=== PATIENT | female | born 1945 | race Caucasian/White ===

== ENCOUNTER 2023-01-24 10:54 | Outpatient (OUT) | payer MEDICARE, SELFPAY ==
--- NOTE | 2023-01-24 13:04 | P.HP_ITS ---
Consult Note: HPI Data of Consult Patient: new to practice Consult date: 01/24/23 Requesting Physician: Naomy Lujan MD Primary Care Provider: BHAVANI PATEL Consult Narrative Reason for consult: Neck pain, bilateral shoulder and arm pain, hand tingling bilaterally Narrative: this is a pleasant 77-year-old female who presents for evaluation. She notes increasing pain throughout her neck that radiates into the bilateral shoulders and upper extremities. She notes tingling that radiates into the bilateral curran nds. Her CT scan of the cervical spine was reviewed, which is significant for multiple levels of moderate to severe foraminal stenosis. She has tried various medications, with limited relief. She uses topical Biofreeze, which provides mild relief. she engages in provider directed home exercises, which provided minimal relief. She otherwise denies adverse medication side effects or loss of bowel or bladder control. cc:: CC: Naomy Lujan MD Review of Systems ROS Status of ROS 10 or more systems reviewed and unremarkable except as noted in history and below [facility] Medical History (Updated 01/24/23 @ 13:08 by Naomy Lujan MD) Surgical History Meds Home Medications and Allergies Home Medications Medication Instructions Recorded Confirmed Type camphor-menthol 0.2 %-3.5 % 1 applic topical BID 01/24/23 01/24/23 History topical gel esomeprazole magnesium 20 mg 20 mg PO DAILY 01/24/23 01/24/23 History capsule,delayed release nabumetone 500 mg tablet 500 mg PO BID 01/24/23 01/24/23 History tizanidine 2 mg tablet 2 mg PO .hs PRN muscle spasticity 01/24/23 01/24/23 History Allergies Allergy/AdvReac Type Severity Reaction Status Date / Time Penicillins Allergy Mild Flushing Verified 01/24/23 12:54 Exam Constitutional: Common normals: no apparent distress, oriented x3 and healthy appearing Neck & C-Spine: Other: tenderness to palpation throughout the cervical spine and paraspinal musculature. Pain is elicited with flexion, extension, and lateral rotation of the cervical spine. Facet loading maneuvers are positive bilaterally. Strength noted to be unremarkable throughout the bilateral upper extremities except for decreased strength rated at four out of five in the bilateral biceps, triceps. Sensation noted to be unremarkable throughout the bilateral upper extremities except for dysesthesia in the bilateral C4, C5, C6, C7 dermatomal distributions. Respiratory: Common normals: normal respiratory effort Effort & inspection: able to speak in complete sentences Extremity: Common normals: normal to inspection Neuro: Common normals: oriented x3, CN's II-XII intact bilaterally and no focal motor deficits Psych: Common normals: mental status grossly normal and cooperative Skin: Common normals: no rashes or lesions noted General skin exam: no rashes or lesions noted Assessment and Plan Assessment and Plan (1) Cervical stenosis of spinal canal: (2) Cervical spondylosis: Plan this is a pleasant 77-year-old female who presents for evaluation. She has failed physical and medical modalities, as listed above. Imaging was reviewed, as noted above. Given her symptomatology and imaging findings, she may benefit from bilateral C6 transforaminal epidural steroid injections. Depending on her response, she may even benefit from bilateral C7 transforaminal epidural steroid injections. She is in agreement with this plan. Medications were reviewed, and no changes were made at this time. She will follow-up after the procedure is completed.
== END 2023-01-24 10:55 ==
PROVIDERS: PCP Family Medicine; Visit Provider Anesthesiology
DX: M48.02 Spinal stenosis, cervical region (principal); M47.812 Spondylosis without myelopathy or radiculopathy, cervical region
CPT/HCPCS: G0463

== ENCOUNTER 2023-02-03 08:14 | Day surgery (SDC) | payer MEDICARE, SELFPAY ==
[2023-02-03 08:40] VITALS: BP 165/78; PULSE 101; RESP 20; TEMP 36.6; O2SAT 99
[2023-02-03] MEDS: IOHEXOL 240 MG/ML - 10 ML VIAL INJ (09:07)
[2023-02-03] MEDS: DEXAMETHASONE SODIUM PHOSPHATE 10 MG/ML VIAL INJ (09:07)
[2023-02-03] MEDS: BUPIVACAINE HCL 0.25% PF 25 MG/10 ML VIAL INJ (09:07)
[2023-02-03] MEDS: LIDOCAINE HCL 2% PF 100 MG/5 ML VIAL INJ (09:08)
[2023-02-03 09:10] VITALS: BP 120/58; BP 130/57; PULSE 101; PULSE 102; RESP 18; O2SAT 97
--- NOTE | 2023-02-03 09:13 | P.ON_ITS ---
Date of procedure: 02/03/23 Pre-op diagnosis: M54.12 Post-op diagnosis: same Procedure: Bilateral C5-6 transforaminal epidural steroid injection Medications: Bupivacaine 0.25% 2cc, dexamethasone 10mg PROCEDURE DESCRIPTION: After informed consent was obtained, the patient was bro ught to the operating room and was placed in the prone position. Standard monitoring was applied. The skin overlying the area was prepped and draped in standard sterile fashion. A 25-gauge spinal needle was inserted through the skin and directed ?toward the indicated nerve root foramen under fluoroscopic guidance. Omnipaque dye 0.3 mL was ?injected and appropriate epidural distribution was established without intravascular or intrathecal ?spread. Subsequently, 1 mL of the corticosteroid and local anesthetic solution was ?injected. The needle was removed. The patient was then turned supine onto the gurney and ?transferred to the recovery area in stable condition, to be discharged home after meeting ?criteria and follow up as per treatment plan. Surgeon: Naomy Lujan
== END 2023-02-03 09:15 | disposition home or self-care (01) ==
PROVIDERS: PCP Family Medicine; Visit Provider Anesthesiology
DX: M54.12 Radiculopathy, cervical region (principal)
CPT/HCPCS: 64479; J1100; Q9966

== ENCOUNTER 2023-02-17 07:55 | Day surgery (SDC) | payer MEDICARE, SELFPAY ==
[2023-02-17 08:38] VITALS: BP 136/73; PULSE 94; RESP 16; TEMP 36; O2SAT 96
[2023-02-17 09:30] VITALS: BP 148/68; PULSE 97; RESP 18; O2SAT 96
[2023-02-17] MEDS: BUPIVACAINE HCL 0.25% PF 25 MG/10 ML VIAL INJ (09:32)
[2023-02-17] MEDS: IOHEXOL 240 MG/ML - 10 ML VIAL INJ (09:33)
[2023-02-17] MEDS: DEXAMETHASONE SODIUM PHOSPHATE 10 MG/ML VIAL INJ (09:33)
[2023-02-17] MEDS: LIDOCAINE HCL 2% PF 100 MG/5 ML VIAL INJ (09:33)
--- NOTE | 2023-02-17 09:34 | W.PM.PROCNOT ---
Date of procedure: 02/17/23 Pre-op diagnosis: M54.12 Post-op diagnosis: same Procedure: Procedure: Bilateral C6-7 transforaminal epidural steroid injection Medications: Bupivacaine 0.25% 2cc, dexamethasone 10mg The patient was seen and examined in the preoperative holding area.? Informed consent was obtained and placed on the chart.? Patient was brought to the medical procedure unit and placed in the prone position where a timeout was completed verifying the correct patient, procedure site, position, and planned special equipment using sterile aseptic technique.? Under direct fluoroscopic visualization a 25-gauge Quincke tipped spinal needle was advanced at level left C6-7 to the designated neural foramen where contrast dye was injected to show adequate spread.? There was no evidence of vascular or adverse uptake.? Epidural spread was appreciated.? The above-mentioned injectate was then placed in a 1.5 mL aliquot preceded by negative aspiration.? The needle was removed. The same procedure, at the same level, was completed on the opposite side. ? Patient was taken to the postprocedural recovery area and monitored for an appropriate length of time before found suitable for discharge in the accompaniment of a responsible adult. Anesthesia: None Surgeon: Naomy Lujan Condition: stable
[2023-02-17 12:11] VITALS: BP 163/76; PULSE 101; RESP 18; O2SAT 95
== END 2023-02-17 09:39 | disposition home or self-care (01) ==
LOC: SURGOUT 07:56
PROVIDERS: PCP Family Medicine; Visit Provider Anesthesiology
DX: M54.12 Radiculopathy, cervical region (principal)
CPT/HCPCS: 64479; J1100; Q9966

== ENCOUNTER 2023-03-03 08:45 | Outpatient (OUT) | payer MEDICARE, SELFPAY ==
--- NOTE | 2023-03-03 09:24 | P.CN_ITS ---
Consult Note: HPI Data of Consult Patient: known to practice within the last 3 years Consult date: 03/03/23 Requesting Physician: Naomy Lujan MD Primary Care Provider: BHAVANI PATEL Consult Narrative Reason for consult: Neck pain, bilateral shoulder pain Narrative: this is a pleasant 77-year-old female who presents for assessment. I'm glad that she had moderate to significant relief after her recent cervical epidural steroid injections. Her primary complaint now is persistent axial neck pain that occasionally refers into the bilateral shoulders. Her CT of the cervical spine was reviewed, which significant for multilevel degenerative disc disease and facet arthropathy. She continues to engage in provider directed home exercises, which she has completed for over three months. She continues to utilize nabumetone, which is done for over three months. She recently took a tizanidine, but she did not like how this made her feel. She otherwise denies of his medication side effects loss of lumbar bladder control. ZULLY: 16 cc:: CC: Naomy Lujan MD Review of Systems ROS Status of ROS 10 or more systems reviewed and unremarkable except as noted in history and below PFSH [facility] Medical History Surgical History Meds Home Medications and Allergies Home Medications Medication Instructions Recorded Confirmed Type esomeprazole magnesium 20 mg 20 mg PO DAILY 01/24/23 02/17/23 History capsule,delayed release nabumetone 500 mg tablet 500 mg PO BID 01/24/23 02/17/23 History tizanidine 2 mg tablet 2 mg PO .hs PRN muscle spasticity 01/24/23 02/17/23 History Allergies Allergy/AdvReac Type Severity Reaction Status Date / Time Penicillins Allergy Mild Flushing Verified 02/17/23 08:43 Exam Constitutional Common normals: no apparent distress, oriented x3 and healthy appearing Neck & C-Spine Other: tenderness to palpation throughout the cervical spine and paraspinal musculature. Pain is elicited with flexion, extension, and lateral rotation of the cervical spine. Facet loading maneuvers are positive bilaterally. Coordinati on remains intact. Gait remains nonantalgic. Respiratory Common normals: normal respiratory effort Effort & inspection: able to speak in complete sentences Extremity Common normals: normal to inspection Neuro Common normals: oriented x3, CN's II-XII intact bilaterally and no focal motor deficits Psych Common normals: mental status grossly normal and cooperative Assessment and Plan Assessment and Plan (1) Cervical spondylosis: (2) Cervical stenosis of spinal canal: Plan this is a pleasant 77-year-old female who presents for assessment. I am glad that she had moderate to significant relief after her recent cervical epidural steroid injection. I suspect that much of her residual axial pain is a consequence of cervical spondylosis. Her imaging was reviewed, as noted above. Given her failure to respond to conservative measures for greater than three months, it is prudent to attempt diagnostic bilateral C5, C6, C7 medial branch blocks ?2 fluoroscopically guided with the intention of proceeding to radio frequency ablation. She is in agreement with this plan. Medications were reviewed, and no changes were made at this time. She will follow-up after the procedure is completed.
== END 2023-03-03 08:46 | disposition home or self-care (01) ==
LOC: PM 08:46
PROVIDERS: PCP Family Medicine; Visit Provider Anesthesiology
DX: M48.02 Spinal stenosis, cervical region (principal); M47.812 Spondylosis without myelopathy or radiculopathy, cervical region
CPT/HCPCS: G0463

== ENCOUNTER 2023-03-10 08:09 | Day surgery (SDC) | payer MEDICARE, SELFPAY ==
[2023-03-10 08:54] VITALS: BP 156/86; PULSE 93; RESP 14; TEMP 36.2; O2SAT 97
[2023-03-10] MEDS: DEXAMETHASONE SODIUM PHOSPHATE 10 MG/ML VIAL INJ (09:36)
[2023-03-10] MEDS: BUPIVACAINE HCL 0.25% PF 25 MG/10 ML VIAL INJ (09:36)
[2023-03-10] MEDS: LIDOCAINE HCL 2% PF 100 MG/5 ML VIAL INJ (09:37)
[2023-03-10 09:38] VITALS: BP 155/72; PULSE 92; RESP 18; O2SAT 97
--- NOTE | 2023-03-10 09:39 | W.PM.PROCNOT ---
Date of procedure: 03/10/23 Pre-op diagnosis: Cervical spondylosis Post-op diagnosis: same Procedure: Procedure: Bilateral C5-6, C6-7 medial branch block Medications: Bupivacaine 0.25% 5cc The patient was seen and examined in the preoperative holding area.? The informed consent was obtained and placed on the chart.? The patient was brought to the medical procedure unit and placed in the prone position.? A timeout was completed verifying correct patient, procedure site, positioning, plan, and special equipment.? Using aseptic technique, the needle was placed at left C5.? Under direct fluoroscopic visualization, a Quincke tip needle was advanced to the midpoint of the waist of the articular pillar at the respective medial branch segment. The above-mentioned injectate was placed in a 1 mL aliquot proceeded by negative aspiration.? The needle was removed.? The procedure was completed at all left C6, 7. The same procedure, at the same levels, was then completed on the right side. Insertion site was covered.? Patient was taken to the postprocedural recovery area and monitored for an appropriate length of time before found suitable for discharge in the accompaniment of a responsible adult. Anesthesia: None Surgeon: Naomy Lujan Pathology: none sent
--- NOTE | 2023-03-10 09:50 | W.PM.PROCNOT ---
Date of procedure: 03/10/23 Pre-op diagnosis: Cervical spondylosis Post-op diagnosis: same Procedure: Procedure: Bilateral C2-3, C3-4 medial branch block Medications: Bupivacaine 0.25% 4cc The patient was seen and examined in the preoperative holding area.? The informed consent was obtained and placed on the chart.? The patient was brought to the medical procedure unit and placed in the prone position.? A timeout was completed verifying correct patient, procedure site, positioning, plan, and special equipment.? Using aseptic technique, the needle was placed at left C2.? Under direct fluoroscopic visualization, a Quincke tip needle was advanced to the midpoint of the waist of the articular pillar at the respective medial branch segment. The above-mentioned injectate was placed in a 1 mL aliquot proceeded by negative aspiration.? The needle was removed.? The procedure was completed at all left C3, 4. The same procedure, at the same levels, was then completed on the right side. Insertion site was covered.? Patient was taken to the postprocedural recovery area and monitored for an appropriate length of time before found suitable for discharge in the accompaniment of a responsible adult. Anesthesia: None Surgeon: Naomy Lujan Pathology: none sent Condition: stable
[2023-03-10 14:45] VITALS: BP 154/75; PULSE 97; RESP 18; O2SAT 98
== END 2023-03-10 09:43 | disposition home or self-care (01) ==
PROVIDERS: PCP Family Medicine; Visit Provider Anesthesiology
DX: M47.812 Spondylosis without myelopathy or radiculopathy, cervical region (principal)
CPT/HCPCS: 64490; 64491; J1100

== ENCOUNTER 2023-03-20 10:55 | Outpatient (OUT) | payer MEDICARE, SELFPAY ==
--- NOTE | 2023-03-20 11:01 | PM.CN ---
Consult Note: HPI Data of Consult Patient: known to practice within the last 3 years Requesting Physician: LOVE PORTILLO NP Primary Care Provider: BHAVANI PATEL Consult Narrative Narrative: Patient is here for f/u of bilat dx MBB to C5, 6, 7 done on 03/04/23. She had 100% relief of pain with increased fx for several hours after procedure. She would like tp proceed with second MBB of same area and ultimately RFA. Pain is in bilat cervical area, worse with movement. . No new sensorimotor sx or bowel or bladder issues. No adverse medication SE. Medications assist patient with better ability to perform ADLs. cc:: CC: LOVE PORTILLO NP Review of Systems ROS Status of ROS 10 or more systems reviewed and unremarkable except as noted in history and below Musculoskeletal Reports: neck pain PFSH PFSH Medical History Surgical History Meds Home Medications and Allergies Home Medications Medication Instructions Recorded Confirmed Type esomeprazole magnesium 20 mg 20 mg PO DAILY 01/24/23 03/10/23 History capsule,delayed release nabumetone 500 mg tablet 500 mg PO BID 01/24/23 03/10/23 History Allergies Allergy/AdvReac Type Severity Reaction Status Date / Time Penicillins Allergy Mild Flushing Verified 02/17/23 08:43 Exam Constitutional Documenting provider has reviewed patient's vital signs: yes Common normals: no apparent distress, average body habitus, oriented x3, no limitations, healthy appearing, alert and well nourished General appearance: cooperative, comfortable and well developed Orientation/consciousness: Yes awake, Yes oriented to person, Yes oriented to place and Yes oriented to time HENMA Common normals: normocephalic and moist oral mucous membranes Neck & C-Spine Common normals: full ROM General: normal visual inspection and trachea midline Cervical spine: pain with cervical ROM and paracervical muscle tenderness Respiratory Common normals: normal respiratory effort, no retractions and no use of accessory muscles Effort & inspection: able to speak in complete sentences, symmetric chest movement and abnormal respiratory pattern Extremity Common normals: normal to inspection, full ROM and normal capillary refill Other: pain with cervical ROM muscle strength 5/5 bilat with intact sensation bilat UE Assessment and Plan Assessment and Plan (1) Cervical spondylosis: (2) Cervical stenosis of spinal canal: Plan schedule second dx MBB bilat C5, 6, 7 under fluoroscopy with ultimate progression to thermal RFA
== END 2023-03-20 10:56 | disposition home or self-care (01) ==
LOC: PM 10:55
PROVIDERS: PCP Family Medicine; Visit Provider Nurse Practitioner
DX: M47.812 Spondylosis without myelopathy or radiculopathy, cervical region (principal); M48.02 Spinal stenosis, cervical region
CPT/HCPCS: G0463

== ENCOUNTER 2023-03-24 09:48 | Day surgery (SDC) | payer MEDICARE, SELFPAY ==
[2023-03-24 10:40] VITALS: BP 156/92; PULSE 97; RESP 12; TEMP 36.7; O2SAT 97
[2023-03-24 11:14] VITALS: BP 155/67; PULSE 98; RESP 18; O2SAT 96
[2023-03-24] MEDS: DEXAMETHASONE SODIUM PHOSPHATE 10 MG/ML VIAL INJ (11:16)
[2023-03-24] MEDS: BUPIVACAINE HCL 0.25% PF 25 MG/10 ML VIAL INJ (11:16)
[2023-03-24] MEDS: LIDOCAINE HCL 2% PF 100 MG/5 ML VIAL INJ (11:17)
--- NOTE | 2023-03-24 11:22 | W.PM.PROCNOT ---
Date of procedure: 03/24/23 Pre-op diagnosis: Cervical spondylosis Post-op diagnosis: same Procedure: Procedure: Bilateral C5-6, C6-7 medial branch block Medications: Bupivacaine 0.25% 4cc The patient was seen and examined in the preoperative holding area.? The informed consent was obtained and placed on the chart.? The patient was brought to the medical procedure unit and placed in the prone position.? A timeout was completed verifying correct patient, procedure site, positioning, plan, and special equipment.? Using aseptic technique, the needle was placed at left C5.? Under direct fluoroscopic visualization, a Quincke tip needle was advanced to the midpoint of the waist of the articular pillar at the respective medial branch segment. The above-mentioned injectate was placed in a 1 mL aliquot proceeded by negative aspiration.? The needle was removed.? The procedure was completed at all left C6, 7. The same procedure, at the same levels, was then completed on the right side. Insertion site was covered.? Patient was taken to the postprocedural recovery area and monitored for an appropriate length of time before found suitable for discharge in the accompaniment of a responsible adult. Anesthesia: None Surgeon: Naomy Lujan Pathology: none sent Condition: stable Disposition: no change
[2023-03-24 14:26] VITALS: BP 151/70; PULSE 103; RESP 18; O2SAT 94
== END 2023-03-24 11:24 | disposition home or self-care (01) ==
LOC: SURGOUT 09:48
PROVIDERS: PCP Family Medicine; Visit Provider Anesthesiology
DX: M47.812 Spondylosis without myelopathy or radiculopathy, cervical region (principal)
CPT/HCPCS: 64490; 64491; J1100

== ENCOUNTER 2023-04-04 08:10 | Outpatient (OUT) | payer MEDICARE, SELFPAY ==
--- NOTE | 2023-04-04 08:25 | PM.CN ---
Consult Note: HPI Data of Consult Patient: known to practice within the last 3 years Consult date: 04/04/23 Requesting Physician: LOVE PORTILLO NP Primary Care Provider: BHAVANI Kuhn Narrative Narrative: Patient is here for f/u of chronic neck pain. F./U to second cervical MBB C5, 6,7. She had 100% relief for several hours after procedure with increased neck ROM. She would like to proceed with RFA of same region. Procedure discussed in detail. Pain today is worse on left side. Axial pain with no radiculopathy. . No new sensorimotor sx or bowel or bladder issues. Medication regimen assists patient to better complete ADLs. Denies adverse medication SE. OARRS reviewed. cc:: CC: LOVE PORTILLO NP Review of Systems ROS Status of ROS 10 or more systems reviewed and unremarkable except as noted in history and below Musculoskeletal Reports: neck pain PFSH PFSH Medical History Surgical History Meds Home Medications and Allergies Home Medications Medication Instructions Recorded Confirmed Type nabumetone 500 mg tablet 500 mg PO BID 01/24/23 03/24/23 History Allergies Allergy/AdvReac Type Severity Reaction Status Date / Time Penicillins Allergy Mild Flushing Verified 03/24/23 10:33 Exam Constitutional Documenting provider has reviewed patient's vital signs: yes Common normals: no apparent distress, average body habitus, oriented x3, healthy appearing, alert and well nourished General appearance: cooperative, comfortable and well developed Orientation/consciousness: Yes awake, Yes oriented to person, Yes oriented to place and Yes oriented to time HENMT Common normals: normocephalic and moist oral mucous membranes Neck & C-Spine Common normals: supple General: normal visual inspection and trachea midline Cervical spine: pain with cervical ROM, cervical spine tenderness, paracervical muscle tenderness and paracervical muscle spasm Other: Arm strength 5/5 right, 4/5 left with intact sensation no arm drift pain with side to side head motion Respiratory Common normals: normal respiratory effort, no retractions and no use of accessory muscles Effort & inspection: able to speak in complete sentences and symmetric chest movement Extremity Common normals: normal to inspection, full ROM and normal capillary refill Assessment and Plan Assessment and Plan (1) Cervical spondylosis: (2) Cervical stenosis of spinal canal: Plan schedule cervical thermal RFA C 5, 6, 7 left side, followed by right side same levels under fluoroscopy
== END 2023-04-04 08:11 | disposition home or self-care (01) ==
LOC: PM 08:11
PROVIDERS: PCP Family Medicine; Visit Provider Nurse Practitioner
DX: M47.812 Spondylosis without myelopathy or radiculopathy, cervical region (principal); M48.02 Spinal stenosis, cervical region
CPT/HCPCS: G0463

== ENCOUNTER 2023-04-21 07:21 | Day surgery (SDC) | payer MEDICARE, SELFPAY ==
[2023-04-21 07:50] VITALS: BP 133/74; PULSE 94; RESP 16; TEMP 36.3; O2SAT 96
[2023-04-21] MEDS: 0.9 % SODIUM CHLORIDE 500 ML 50 ML IV (07:56)
[2023-04-21] MEDS: LIDOCAINE HCL 2% 400 MG/20 ML MDV 10 ML INJ (08:55)
[2023-04-21] MEDS: TRIAMCINOLONE ACETONIDE 40 MG/ML VIAL INJ (08:55)
[2023-04-21] MEDS: BUPIVACAINE HCL 0.25% PF 25 MG/10 ML VIAL 2 ML INJ (08:55)
--- NOTE | 2023-04-21 09:01 | P.ON_ITS ---
Date of procedure: 04/21/23 Pre-op diagnosis: Cervical spondylosis Post-op diagnosis: same as pre-op Procedure: Procedure: Left C5-6, C6-7 radiofrequency ablation Medications: Bupivacaine 0.25% 3cc, lidocaine 1% 3cc, dexamethasone 10mg The patient was seen and examined in the preoperative holding area.? The site was marked.? Written informed consent was obtained and placed on the chart.? The patient was brought to the medical procedure unit and placed in the prone position.? A timeout was completed verifying correct patient, procedure, positioning, and special requirements.? The skin overlying the target points, the designated medial branch, were prepped and draped in the usual sterile fashion.? The target point was achieved with a 20-gauge 15 cm with a 10 mm curved active tip radiofrequency cannula under direct fluoroscopic visualization.? The needle was inserted at level C5 on the left side. Needle tip position was confirmed with lateral fluoroscopic position.? Motor stimulation was carried out at 2 Hz up to 5 volts with the absence of extremity activity.? This was repeated at level C6, 7 on left side.?? Sensory stimulation was carried out.? Concordant pain was realized at the above- mentioned sites.? Then radiofrequency lesioning was carried out times 90 seconds at 80 degrees times 2 lesions at each level.? The radiofrequency probe was removed prior to cannula removal.? The above-mentioned injectate was placed in 1 mL increments.? The needle was removed.? Insertion sites were covered.? The patient was taken to the postoperative recovery area and monitored for an appropriate length of time before being found suitable for discharge in the company of a responsible adult. Anesthesia: Moderate Sedation Surgeon: Naomy Lujan Pathology: none sent Condition: stable Disposition: no change
[2023-04-21 09:03] VITALS: BP 113/75; PULSE 89; RESP 14; TEMP 36.3; O2SAT 97
[2023-04-21 09:09] VITALS: BP 121/70; PULSE 92; RESP 16; TEMP 36.3; O2SAT 97
== END 2023-04-21 09:27 | disposition home or self-care (01) ==
PROVIDERS: PCP Family Medicine; Visit Provider Anesthesiology
DX: M47.812 Spondylosis without myelopathy or radiculopathy, cervical region (principal)
CPT/HCPCS: 64633; 64634; J2704

== ENCOUNTER 2023-05-05 07:38 | Day surgery (SDC) | payer MEDICARE, SELFPAY ==
[2023-05-05] MEDS: 0.9 % SODIUM CHLORIDE 500 ML IV (07:15)
[2023-05-05 08:04] VITALS: BP 128/71; PULSE 88; RESP 16; TEMP 36.2; O2SAT 96
[2023-05-05] MEDS: LIDOCAINE HCL 2% 400 MG/20 ML MDV 15 ML INJ (08:39)
[2023-05-05] MEDS: DEXAMETHASONE SODIUM PHOSPHATE 10 MG/ML VIAL INJ (08:39)
[2023-05-05] MEDS: BUPIVACAINE HCL 0.25% PF 25 MG/10 ML VIAL INJ (08:39)
--- NOTE | 2023-05-05 08:49 | P.ON_ITS ---
Date of procedure: 05/05/23 Pre-op diagnosis: Cervical spondylosis Post-op diagnosis: same as pre-op Procedure: Procedure: Right C5-6, C6-7 radiofrequency ablation Medication: Bupivacaine 0.25% 3cc, dexamethasone 10mg, lidocaine 1% 3cc The patient was seen and examined in the preoperative holding area.? The site was marked.? Written informed consent was obtained and placed on the chart.? The patient was brought to the medical procedure unit and placed in the prone position.? A timeout was completed verifying correct patient, procedure, positioning, and special requirements.? The skin overlying the target points, the designated medial branch, were prepped and draped in the usual sterile fashion.? The target point was achieved with a 20-gauge 15 cm with a 10 mm curved active tip radiofrequency cannula under direct fluoroscopic visualization.? The needle was inserted at level C5 on the right side. Needle tip position was confirmed with lateral fluoroscopic position.? Motor stimulation was carried out at 2 Hz up to 5 volts with the absence of extremity activity.? This was repeated at level C6, 7 on right side.?? Sensory stimulation was carried out.? Concordant pain was realized at the above- mentioned sites.? Then radiofrequency lesioning was carried out times 90 seconds at 80 degrees times 2 lesions at each level.? The radiofrequency probe was removed prior to cannula removal.? The above-mentioned injectate was placed in 1 mL increments.? The needle was removed.? Insertion sites were covered.? The patient was taken to the postoperative recovery area and monitored for an appropriate length of time before being found suitable for discharge in the company of a responsible adult. Anesthesia: Moderate Sedation Surgeon: Naomy Lujan Pathology: none sent Condition: stable Disposition: no change
[2023-05-05 08:51] VITALS: BP 112/67; PULSE 82; RESP 16; TEMP 36.9; O2SAT 96
[2023-05-05 08:52] VITALS: BP 117/66; PULSE 85; RESP 16; TEMP 36.9; O2SAT 95
== END 2023-05-05 09:13 | disposition home or self-care (01) ==
PROVIDERS: PCP Family Medicine; Visit Provider Anesthesiology
DX: M47.812 Spondylosis without myelopathy or radiculopathy, cervical region (principal)
CPT/HCPCS: 64633; 64634; J1100; J2704

== ENCOUNTER 2023-06-04 08:56 | Outpatient (OUT) | payer MEDICARE, SELFPAY ==
--- NOTE | 2023-06-04 09:15 | P.CN_ITS ---
Consult Note: HPI Data of Consult Patient: known to practice within the last 3 years Requesting Physician: Debby Collazo NP Primary Care Provider: BHAVANI PATEL Consult Narrative Reason for consult: f/u Narrative: Minda mcdonald pleasant 78 year old female presents for evaluation of chronic neck pain and left shoulder pain. Recently had right and left C5, 6, 7 RFA with 90% pain relief and functional improvement ongoing. Patient has not needed nabumetone since procedures. Here for a procedure follow up. Today rating pain 2/10 in left shoulder, worse with activity and lifting improved with rest and heat. cc:: CC: Debby Collazo NP Review of Systems ROS Status of ROS 10 or more systems reviewed and unremarkable except as noted in history and below Musculoskeletal Reports: other (left shoulder) PFSH PFSH Medical History Acid reflux ?K21.9 - Gastro-esophageal reflux disease without esophagitis (ICD-10) Kidney calculi ?N20.0 - Calculus of kidney (ICD-10) Neck pain ?M54.2 - Cervicalgia (ICD-10) Surgical History History of bilateral tubal ligation ?Z98.51 - Tubal ligation status (ICD-10) History of phacoemulsification of cataract of both eyes with intraocular lens implantation ?Z98.41 - Cataract extraction status, right eye (ICD-10) ?Z98.42 - Cataract extraction status, left eye (ICD-10) ?Z96.1 - Presence of intraocular lens (ICD-10) Hx of appendectomy ?Z90.49 - Acquired absence of other specified parts of digestive tract (ICD- 10) Meds Home Medications and Allergies Home Medications Medication Instructions Recorded Confirmed Type nabumetone 500 mg tablet 500 mg PO BID 01/24/23 05/05/23 History Allergies Allergy/AdvReac Type Severity Reaction Status Date / Time Penicillins Allergy Mild Flushing Verified 05/05/23 08:00 Exam Constitutional Documenting provider has reviewed patient's vital signs: yes Common normals: no apparent distress, oriented x3, healthy appearing, alert and well nourished General appearance: cooperative HENMT Common normals: normocephalic, hearing grossly normal bilaterally and moist oral mucous membranes Head and scalp: normocephalic Eye Common normals: PERRL Pupil: PERRL Neck & C-Spine Common normals: full ROM General: normal visual inspection Other: neck pain resolved Chest Common normals: inspection of chest normal Respiratory Common normals: normal respiratory effort, no retractions and no use of accessory muscles Extremity Other: left shoulder pain, pain following suprascapular nerve LUE 5/5 mildly limited ROM Neuro Common normals: oriented x3, CN's II-XII intact bilaterally, moves all extremities, no focal motor deficits, no sensory deficits noted, deep tendon reflexes 2+ bilaterally and gait normal Sensorium/orientation: alert Motor exam: strength 5/5 throughout and no movement abnormalities noted Other: radiculopathy to bilateral hands Psych Common normals: mental status grossly normal, thought process normal, cooperative, affect normal, speech normal and activity/motor behavior normal Speech: normal speech Thought process: normal thought process Results Additional Findings Additional findings: I have checked an OARRS report on this patient today and there are no aberrancies noted in the prescribing history.?? A drug screen was completed and reviewed within the last year, and if there has not been a drug screen completed we ordered one today to monitor higher risk, state monitored pain medication use. As part of providing excellent, safe, comprehensive care, the following was completed at our patient's visit: 1. A medication reconciliation and review to ensure accurate knowledge of current/active medications, including asking our patients to inform us about any [id number] medications or herbal remedies/nutritional supplements/alternative remedies. 2. A review to specifically ensure our patients have had annual screening for: elevated body mass index (BMI), tobacco use, screening for depression, and sc reening for unhealthy alcohol use. When screening is concerning, patients are provided with education and the specific recommendation to discuss the concerning health issue and treatment options with their primary care provider. Assessment and Plan Assessment and Plan (1) Cervical spondylosis: (2) Left shoulder pain: (3) Cervical stenosis of spinal canal: Plan patient not interested in PT, imaging, additional medication or injection therapy for left shoulder pain, pain over left suprascapular nerve cervical RFA >90% pain relief pain improvement and functional improvement ongoing f/u 6 months, sooner if needed
== END 2023-06-04 08:57 | disposition home or self-care (01) ==
LOC: PM 08:56
PROVIDERS: PCP Family Medicine; Visit Provider Nurse Practitioner
DX: M47.812 Spondylosis without myelopathy or radiculopathy, cervical region (principal); M25.512 Pain in left shoulder; M48.02 Spinal stenosis, cervical region
CPT/HCPCS: G0463

== ENCOUNTER 2023-06-23 21:06 | Emergency (ER) | payer MEDICARE, SELFPAY ==
[2023-06-23 21:09] VITALS: BP 138/72; PULSE 96; RESP 18; TEMP 36.7; O2SAT 96; BMI 19.5
[2023-06-23 21:34] LABS: Bilirubin Urine NEGATIVE (NEGATIVE); Blood Urine SMALL (NEGATIVE); Clarity Urine CLOUDY (CLEAR); Color Urine LT. YELLOW (YELLOW); Glucose Urine UA NEGATIVE (NEGATIVE); Ketones Urine TRACE mg/dL (NEGATIVE); Leukocyte Esterase Urine MODERATE (NEGATIVE); Nitrite Urine NEGATIVE (NEGATIVE); Protein Urine 30 mg/dL (NEG/TRACE); pH Urine 7.5 (5.0-9.0)
[2023-06-23 21:37] LABS: Urine Microscopic Indicated YES
[2023-06-23 21:43] LABS: Bacteria Urine LARGE #/HPF (NONE SEEN); RBC Urine 20-50 #/HPF (0-2); WBC Urine >100 #/HPF (NONE SEEN)
[2023-06-23 21:44] LABS: Mucus Urine NONE SEEN (NONE SEEN); Squamous Epithelial Cell Urine MODERATE #/LPF (NONE/RARE)
[2023-06-23 21:45] LABS: Transitional Epi Cells Urine RARE #/LPF (NONE SEEN)
[2023-06-23 21:46] LABS: Amorphous Sediment Urine FEW; Cast Seen? NONE SEEN #/LPF (NONE SEEN); Crystals Seen? Seen #/HPF (None Seen); Triple Phosphate Crystal Urine RARE
[2023-06-23 21:47] LABS: Urine Culture Indicated YES
[2023-06-23] MEDS: SULFAMETHOXAZOLE/TRIMETHOPRIM 800-160 MG TABLET 1 TAB PO (22:01)
--- NOTE | 2023-06-23 22:13 | ED.FEMALEGU1 ---
HPI - Female Genitourinary General Chief complaint: Urogenital-Female Stated complaint: UTI Time Seen by Provider: 06/23/23 21:28 Source: patient Mode of arrival: walk-in Limitations: no limitations History of Present Illness HPI Narrative: Presenting with 3 days history of burning with urination no other complaints of nausea vomiting or abdominal pain or fever or chills Related Data Previous Rx's Medication Instructions Recorded sulfamethoxazole 800 1 tab PO BID #10 tabs 06/23/23 mg-trimethoprim 160 mg tablet (Bactrim DS) Allergies Allergy/AdvReac Type Severity Reaction Status Date / Time Penicillins Allergy Mild Flushing Verified 06/23/23 21:09 Review of Systems ROS Status of ROS 10 or more systems reviewed and unremarkable except as noted in history and below PFSH [facility] Medical History Acid reflux ?K21.9 - Gastro-esophageal reflux disease without esophagitis (ICD-10) Kidney calculi ?N20.0 - Calculus of kidney (ICD-10) Neck pain ?M54.2 - Cervicalgia (ICD-10) Surgical History History of bilateral tubal ligation ?Z98.51 - Tubal ligation status (ICD-10) History of phacoemulsification of cataract of both eyes with intraocular lens implantation ?Z98.41 - Cataract extraction status, right eye (ICD-10) ?Z98.42 - Cataract extraction status, left eye (ICD-10) ?Z96.1 - Presence of intraocular lens (ICD-10) Hx of appendectomy ?Z90.49 - Acquired absence of other specified parts of digestive tract (ICD-10) Social History Smoking status: Never smoker Exam Narrative Exam Narrative: Nurses notes and vital signs reviewed and patient is not hypoxic. General: Well-appearing and in no apparent distress. Skin: Warm, dry, no pallor noted. No rash. Head: Normocephalic, atraumatic. Neck: Supple, non-tender. Eye: Pupils are equal, round and EOMI. No scleral icterus. Ears, Nose, Mouth, and Throat: TM are clear, no nasal mucosal hypertrophy. Oral mucosa is moist, no posterior oropharynx erythema, uvula is mid-line Cardiovascular: Regular Rate and Rhythm without murmur, gallop or rub. Respiratory: No accessory muscle use or respiratory distress. Lungs are clear to auscultation, no wheezing, rales or rhonchi Chest Wall: no tenderness Back: No midline thoracic or lumbar vertebral tenderness. No CVA tenderness Musculoskeletal: normal ROM, no calf or popliteal tenderness, no lower extremity edema/swelling GI: Abdomen is soft, non-distended. Normal bowel sounds. No masses appreciated. No tenderness to palpation. No rebound, guarding, or rigidity noted. Neurological: A&O x4. No cranial nerve dysfunction observed. No truncal ataxia. Moves all extremities. Sensation intact. Psychiatric: Cooperative and interactive. Normal mood and affect. Constitutional Vital Signs, click to edit/add: Last Vital Signs Temp 98.0 F 06/23/23 21:09 Pulse 96 H 06/23/23 21:09 Resp 18 06/23/23 21:09 BP 138/72 06/23/23 21:09 Pulse Ox 96 06/23/23 21:09 O2 Del Method Room Air 06/23/23 21:09 Course Vital Signs Vital signs: Vital Signs Temperature 98.0 F 06/23/23 21:09 Pulse Rate 96 H 06/23/23 21:09 Respiratory Rate 18 06/23/23 21:09 Blood Pressure 138/72 06/23/23 21:09 Pulse Oximetry 96 06/23/23 21:09 Oxygen Delivery Method Room Air 06/23/23 21:09 Temperature 98.0 F 06/23/23 21:09 Pulse Rate 96 H 06/23/23 21:09 Respiratory Rate 18 06/23/23 21:09 Blood Pressure 138/72 06/23/23 21:09 Pulse Oximetry 96 06/23/23 21:09 Oxygen Delivery Method Room Air 06/23/23 21:09 MDM - Female Genitourinary MDM Narrative Medical decision making narrative: Presenting with typical UTI symptoms the patient will be treated with the Bactrim for 5 days The patient is to follow up with primary care physician in next 2-3 days or to return to the emergency department should any of the signs or symptoms worsen or new symptoms develop. The patient agrees with the following Diagnosis and Treatment plan and the patient will be discharged home. Lab Data Labs: Lab Results 06/23/23 Range/Units 21:20 Urine Color Lt. yellow (YELLOW) Urine Clarity Cloudy A (CLEAR) Urine pH 7.5 (5.0-9.0) Ur Specific [place] 1.010 (1.005-1.025) Urine Protein 30 A (NEG/TRACE) mg/dL Urine Glucose (UA) Negative (NEGATIVE) mg/dL Urine Ketones Trace A (NEGATIVE) mg/dL Urine Occult Blood Small A (NEGATIVE) Urine Nitrite Negative (NEGATIVE) Urine Bilirubin Negative (NEGATIVE) Urine Urobilinogen 1.0 (0.2-1.0) EU/dL Ur Leukocyte Esterase Moderate A (NEGATIVE) Urine RBC 20-50 A (0-2) #/HPF Urine WBC >100 A (NONE SEEN) #/HPF Ur Squamous Epith Cells Moderate A (NONE/RARE) #/LPF Ur Transition Epith Cell Rare A (NONE SEEN) #/LPF Urine Crystals Seen A (None Seen) #/HPF Triple Phos Crystals Rare Amorphous Sediment Few Urine Bacteria Large A (NONE SEEN) #/HPF Urine Casts None seen (NONE SEEN) #/LPF Urine Mucus None seen (NONE SEEN) Ur Culture Indicated? Yes Discharge Plan Discharge Chief Complaint: Urogenital-Female Clinical Impression: Urinary tract infection Patient Disposition: Home, Self-Care Time of Disposition Decision: 22:14 Condition: Good Prescriptions / Home Meds: New sulfamethoxazole-trimethoprim [Bactrim DS] 800-160 mg tablet 1 tab PO BID Qty: 10 0RF Instructions: Urinary Tract Infection in Older Adults (ED) Stand Alone Forms: Portal Instructions Referrals: Physician,Non-Staff, MD [Primary Care Provider] - 1 week
--- NOTE | 2023-06-29 14:34 | PC.NURSE ---
06/29 1430 pt urine c+s reviewed by Kenna sal with current atb nno at this time. Vanessa Steen RN
== END 2023-06-23 22:26 | disposition home or self-care (01) ==
PROVIDERS: Emergency Provider Emergency Medicine
DX: N39.0 Urinary tract infection, site not specified (principal); K21.9 Gastro-esophageal reflux disease without esophagitis; Z87.442 Personal history of urinary calculi; Z98.51 Tubal ligation status; Z98.41 Cataract extraction status, right eye; Z98.42 Cataract extraction status, left eye; Z96.1 Presence of intraocular lens; Z90.49 Acquired absence of other specified parts of digestive tract
CPT/HCPCS: 81001; 87086; 87150; 87186; 99283

== ENCOUNTER 2023-08-03 09:24 | Emergency (ER) | payer MEDICARE, SELFPAY ==
[2023-08-03 09:28] VITALS: BP 157/77; PULSE 77; RESP 14; TEMP 36.7; O2SAT 99; BMI 23.6
--- NOTE | 2023-08-03 09:36 | ED_ITS ---
HPI - Neck Pain/Injury General Chief Complaint: Neck Pain/Injury Stated Complaint: NECK PAIN Time Seen by Provider: 08/03/23 09:26 Source: patient Mode of arrival: walk-in Limitations: no limitations History of Present Illness HPI Narrative: 78-year-old female presents to the emergency department for right-sided neck pain. It started a few days ago while she was driving in her car and she felt a popping sensation on the right side of her neck and goes up into the right side of her head as well. She does not take any blood thinners and there was no trauma. No weakness or numbness in her arms. The pain is moderate and worse in certain positions. Related Data Previous Rx's Medication Instructions Recorded sulfamethoxazole 800 1 tab PO BID #10 tabs 06/23/23 mg-trimethoprim 160 mg tablet (Bactrim DS) cyclobenzaprine 10 mg tablet 10 mg PO TID PRN muscle spasm #20 08/03/23 tabs ibuprofen 800 mg tablet 800 mg PO Q8H PRN pain #20 tabs 08/03/23 Allergies Allergy/AdvReac Type Severity Reaction Status Date / Time Penicillins Allergy Mild Flushing Verified 08/03/23 09:31 Review of Systems ROS Narrative A ten point review of systems is negative except as noted above. PFSH PFSH Medical History Acid reflux ?K21.9 - Gastro-esophageal reflux disease without esophagitis (ICD-10) Kidney calculi ?N20.0 - Calculus of kidney (ICD-10) Neck pain ?M54.2 - Cervicalgia (ICD-10) Surgical History History of bilateral tubal ligation ?Z98.51 - Tubal ligation status (ICD-10) History of phacoemulsification of cataract of both eyes with intraocular lens implantation ?Z98.41 - Cataract extraction status, right eye (ICD-10) ?Z98.42 - Cataract extraction status, left eye (ICD-10) ?Z96.1 - Presence of intraocular lens (ICD-10) Hx of appendectomy ?Z90.49 - Acquired absence of other specified parts of digestive tract (ICD- 10) Social History Smoking status: Never smoker Exam Narrative Exam Narrative: Nurses note and vital signs reviewed and patient is not hypoxic. General: The patient appears well and in no apparent distress. Patient is resting comfortably on cart. Skin: Warm, dry, no pallor noted. There is no rash noted. Head: Normocephalic, atraumatic Eye: Normal conjunctiva, no drainage Ears, Nose, Mouth, and Throat: oral mucosa is moist. Nares patent. neck has no masses bruises or swelling. There is palpable tenderness in the right posterior lateral neck musculature. Neck has good range of motion. Cardiovascular: Regular Rate and Rhythm Respiratory: Patient is in no distress, no accessory muscle use, lungs are cl ear to auscultation, no wheezing, rales or rhonchi Back: non-tender GI: soft and nontender Musculoskeletal: The patient has no evidence of calf tenderness, no pitting edema, symmetrical pulses noted bilaterally Neurological: A&O x4, normal speech, upper and lower extremity strength intact. Psychiatric: Cooperative Constitutional Vital Signs, click to edit/add: Last Vital Signs Temp 98.1 F 08/03/23 09:28 Pulse 77 08/03/23 09:28 Resp 14 08/03/23 09:28 BP 157/77 H 08/03/23 09:28 Pulse Ox 99 08/03/23 09:28 O2 Del Method Room Air 08/03/23 09:28 Course Vital Signs Vital signs: Vital Signs Temperature 98.1 F 08/03/23 09:28 Pulse Rate 77 08/03/23 09:28 Respiratory Rate 14 08/03/23 09:28 Blood Pressure 157/77 H 08/03/23 09:28 Pulse Oximetry 99 08/03/23 09:28 Oxygen Delivery Method Room Air 08/03/23 09:28 Temperature 98.1 F 08/03/23 09:28 Pulse Rate 77 08/03/23 09:28 Respiratory Rate 14 08/03/23 09:28 Blood Pressure 157/77 H 08/03/23 09:28 Pulse Oximetry 99 08/03/23 09:28 Oxygen Delivery Method Room Air 08/03/23 09:28 MDM - Neck Pain/Injury MDM Narrative Medical decision making narrative: CT findings are discussed with the patient. She'll follow-up with her PCP and was prescribed ibuprofen and Flexeril. Treatment diagnosis and follow-up were discussed with the patient. Differential Diagnosis Differential diagnosis: Likely disc disorder of cervical region, cervical radiculopathy, torticollis, cervical spondylosis and strain of neck muscle Imaging Data CT brain and C-spine: Radiologist's impression: Procedure: CT cervical spine wo con CT cervical spine wo con, 08/03/2023 9:40 AM EST INDICATION: Right sided neck pain COMPARISON: Noncontrast CT of the cervical spine 12/25/2022 TECHNIQUE: Thin-section axial CT images of the entire cervical spine were acquired without contrast. Supplemental 2D reformatted images were generated and reviewed as needed. Dose reduction techniques were achieved by using automated exposure control and/or adjustment of mA and/or kV according to patient size and/or use of iterative reconstruction technique. FINDINGS: Straightening of cervical lordosis. No prevertebral soft tissue edema. No subluxation. Craniocervical junction within normal limits. Atlantodental distance is not widened. Sclerosis, osteophytosis and ligamentous calcification C1/C2. Stable multilevel degenerative disc disease with facet hypertrophy. Moderate to severe right neuroforaminal stenosis C3/C4, C4/C5. Central spinal canal is grossly preserved. No epidural hematoma. No consolidation at the lung apices. IMPRESSION: 1. No acute fracture or traumatic malalignment. 2. Spondylosis with multilevel moderate to severe right neuroforaminal stenosis. Electronically authenticated by: JESUS MANUEL GARCIA Date: 08/03/2023 10:12 Procedure: CT head/brain wo con EXAM: CT head/brain wo con HISTORY: Right sided neck pain, headache x3 days COMPARISON: CT cervical spine performed contemporaneously reported separately. TECHNIQUE: Axial noncontrast CT imaging of the head was performed with coronal and sagittal reformats. FINDINGS: Calvarium/skull base: No evidence of acute fracture or destructive lesion. Mastoids and middle ears demonstrate no substantial mucosal disease. Paranasal sinuses: No air fluid levels. Brain: No acute intracranial hemorrhage. No acute large vascular territory infarct. Probable prominent perivascular space involving the inferior left lentiform nucleus. No mass lesion or mass effect. No hydrocephalus. IMPRESSION: No acute intracranial process. Electronically authenticated by: BLAIRE NORMAN Date: 08/03/2023 10:08 Discharge Plan Discharge Chief Complaint: Neck Pain/Injury Clinical Impression: Cervical pain (neck) Patient Disposition: Home, Self-Care Time of Disposition Decision: 10:48 Condition: Good Mode of Transportation: Private Vehicle Prescriptions / Home Meds: New cyclobenzaprine 10 mg tablet 10 mg PO TID PRN (Reason: muscle spasm) Qty: 20 0RF ibuprofen 800 mg tablet 800 mg PO Q8H PRN (Reason: pain) Qty: 20 0RF No Action sulfamethoxazole-trimethoprim [Bactrim DS] 800-160 mg tablet 1 tab PO BID Qty: 10 0RF Stand Alone Forms: Portal Instructions Referrals: Physician,Non-Staff, MD [Primary Care Provider] - 1 week
--- NOTE | 2023-08-03 09:36 | CT_ITS ---
The [address] [address] Patient Name: JOSE DALAL MRN: [id number] date: 1945 Sex: F Assigned Patient Location: ER Current Patient Location: ER Accession/Order Number: [id number] Exam Date: 08/03/2023 09:40 Report Date: 08/03/2023 10:08 At the request of: YOEL GAVIN Procedure: CT head/brain wo con EXAM: CT head/brain wo con HISTORY: Right sided neck pain, headache x3 days COMPARISON: CT cervical spine performed contemporaneously reported separately. TECHNIQUE: Axial noncontrast CT imaging of the head was performed with coronal and sagittal reformats. FINDINGS: Calvarium/skull base: No evidence of acute fracture or destructive lesion. Mastoids and middle ears demonstrate no substantial mucosal disease. Paranasal sinuses: No air fluid levels. Brain: No acute intracranial hemorrhage. No acute large vascular territory infarct. Probable prominent perivascular space involving the inferior left lentiform nucleus. No mass lesion or mass effect. No hydrocephalus. CT/CT head/brain wo con IMPRESSION: No acute intracranial process. Electronically authenticated by: BLAIRE NORMAN Date: 08/03/2023 10:08
--- NOTE | 2023-08-03 09:36 | CT_ITS ---
The [address] [address] Patient Name: JOSE DALAL MRN: [id number] date: 1945 Sex: F Assigned Patient Location: ER Current Patient Location: ER Accession/Order Number: [id number] Exam Date: 08/03/2023 09:40 Report Date: 08/03/2023 10:12 At the request of: YOEL GAVIN Procedure: CT cervical spine wo con CT cervical spine wo con, 08/03/2023 9:40 AM EST INDICATION: Right sided neck pain COMPARISON: Noncontrast CT of the cervical spine 12/25/2022 TECHNIQUE: Thin-section axial CT images of the entire cervical spine were acquired without contrast. Supplemental 2D reformatted images were generated and reviewed as needed. Dose reduction techniques were achieved by using automated exposure control and/or adjustment of mA and/or kV according to patient size and/or use of iterative reconstruction technique. FINDINGS: Straightening of cervical lordosis. No prevertebral soft tissue edema. No subluxation. Craniocervical junction within normal limits. Atlantodental distance is not widened. Sclerosis, osteophytosis and ligamentous calcification C1/C2. Stable multilevel degenerative disc disease with facet hypertrophy. Moderate to severe right neuroforaminal stenosis C3/C4, C4/C5. Central spinal canal is grossly preserved. No epidural hematoma. No consolidation at the lung apices. CT/CT cervical spine wo con IMPRESSION: 1. No acute fracture or traumatic malalignment. 2. Spondylosis with multilevel moderate to severe right neuroforaminal stenosis. Electronically authenticated by: JESUS MANUEL GARCIA Date: 08/03/2023 10:12
== END 2023-08-03 10:55 | disposition home or self-care (01) ==
PROVIDERS: Emergency Provider Emergency Medicine
DX: M54.2 Cervicalgia (principal); K21.9 Gastro-esophageal reflux disease without esophagitis; Z87.442 Personal history of urinary calculi; Z98.51 Tubal ligation status; Z98.41 Cataract extraction status, right eye; Z98.42 Cataract extraction status, left eye; Z96.1 Presence of intraocular lens; Z90.49 Acquired absence of other specified parts of digestive tract
CPT/HCPCS: 70450; 72125; 99283

== ENCOUNTER 2023-09-11 17:54 | Emergency (ER) | payer MEDICARE, SELFPAY ==
[2023-09-11 17:58] VITALS: BP 163/86; PULSE 116; RESP 20; TEMP 37.6; O2SAT 97; BMI 25.6
--- OUTSIDE RECORDS SUMMARY | 2023-09-11 18:01 | XMS_ITS | CCD ---
Author Name Unknown Address [address] [place] [address] Organization [facility] Care Team Providers Care Glass Products Inspector Name Role Phone LEAH, DR PATO Perez Admitting Unavailabl e LEAH, DR PATO Perez Consulting Unavailabl e LEAH, DR PATO Perez Attending Unavailalonso e HOUSE, DR BECKHAM Primary Care Unavailable SHANTELL GARCIA Consulting Unavailable CHANEL ., DR NICHOLAS Attending Unavailable KARAN JENKINS Consulting Unavailable JORGE, DR BECKHAM Primary Care Unavailable CHANEL ., DR NICHOLAS Admitting Unavailable LADI LOPEZ Consulting Unavailable Giconor SENIOR, Andrius Gordon Attending Unavailable Giedraitis , Andrius Heidi Attending Unavailable Giedraitis MD, Andrius Vytautkathie Attending Unavailable Giedraitis , Andrius Vyteric Attending Unavailable Giedraitis MD, Andrius Vytautkathie Attending Unavailable Giedraitis MD, Andrius Vytautkathie Attending Unavailable Allergies Allergy Classification Reported Allergen(s) Allergy Type Date of Onset Reaction(s) Facility (1 source) Penicillins Drug allergy (disorder) [facility] Repository Problems Active Problems Problem Classification Problem Date Documented Da te Episodic/Chronic Calculus of urinary tract (1 source) Personal history of urinary calculi; Translations: [PERSONAL HISTORY OF URINARY CALCULI] Onset: 12-26-2022 Episodic Spondylosis; intervertebral disc disorders; other back problems (1 source) Spondylosis without myelopathy or radiculopathy, cervical region; Translations: [SPONDYLS W/O MYELO-/RADICULOP CERV] Onset: 12-26-2022 Chronic Spondylosis; intervertebral disc disorders; other back problems (4 sources) Dorsalgia, unspecified; Translations: [Spinal stenosis, cervical region] Onset: 12-25-2022 Episodic Past or Other Problems Problem Classification Problem Date Documented Da te Episodic/Chronic E Codes: Fall (1 source) Fall on same level from slipping, tripping and stumbling without subsequent striking against object, initial encounter; Translations: [FALL SAME LVL SLIP NO STRK OBJ INIT] Onset: 04-26-2022 Episodic Other non-traumatic joint disorders (3 sources) Pain in right knee; Translations: [PAIN IN RIGHT KNEE] Onset: 04-25-2022 Episodic Sprains and strains (1 source) Sprain of unspecified site of right knee, initial encounter; Translations: [SPRAIN UNS SITE RT KNEE INITIAL] Onset: 04-26-2022 Episodic Results Test Name Value Interpretation Reference Range Facil ity CT CSPINE WO CONon 3 CT CSPINE WO CON EXAM: CT scan of the cervical spine without contrast. Dose reduction technique used: Automated exposure control and/or adjustment of the mA and/or kV according to patient size and/or use of iterative reconstruction technique. REASON FOR EXAM: Neck pain COMPARISON: None FINDINGS: No fractures, dislocations or acute malalignment of the cervical spine. Cervical spine degenerative changes with multilevel bilateral moderate and severe neural foraminal stenoses. Multilevel spinal canal stenoses that are mild or moderate. Remainder unremarkable. IMPRESSION: No acute cervical spine abnormalities. Electronically authenticated by: SHANTELL GARCIA Date: 2022-12-25 08:22 Normal [facility] XR KNEE RT 4V or >on 022 XR KNEE RT 4V or > IMAGES REVIEWED: XR KNEE RT 4V or > COMPARISON: None available. CLINICAL INDICATION: Acute pain after a fall. FINDINGS/IMPRESSION: 1. No evidence of acute osseous abnormality of the right knee. 2. No significant joint effusion. 3. Advanced osteoarthritis of the right knee, particularly involving the lateral and patellofemoral compartments where there is [id number] contact. 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 Electronically authenticated by: KARAN JENKINS Date: 2022-04-25 19:06 Normal [facility] Patient Educationon 09-10-19 Patient Education Nutrition BMI for Adults Body mass index (BMI) is a number that is calculated from a person's weight and height. BMI may help to estimate how much of a person's weight is composed of fat. BMI can help identify those who may be at higher risk for certain medical problems. How is BMI used with adults? BMI is used as a screening tool to identify possible weight problems. It is used to check whether a person is obese, overweight, healthy weight, or underweight. How is BMI calculated? BMI measures your weight and compares it to your height. This can be done either in [place] ([place] or metric measurements. Note that charts are available to help you find your BMI quickly and easily without having to do these calculations yourself. To calculate your BMI in [place]ian ([place] measurements, your health care provider will: 1. Measure your weight in pounds (lb). 2. Multiply the number of pounds by 703. ? For example, for a person who weighs 180 lb, multiply that number by 703, which equals 126,540. 3. Measure your height in inches (in). Then multiply that number by itself to get a measurement called inches squared. ? For example, for a person who is 70 in tall, the inches squared measurement is 70 in x 70 in, which equals 4900 inches squared. 4. Divide the total from Step 2 (number of lb x 703) by the total from Step 3 (inches squared): 126,540 ? 4900 = 25.8. This is your BMI. To calculate your BMI in metric measurements, your health care provider will: 1. Measure your weight in kilograms (kg). 2. Measure your height in meters (m). Then multiply that number by itself to get a measurement called meters squared. ? For example, for a person who is 1.75 m tall, the meters squared measurement is 1.75 m x 1.75 m, which is equal to 3.1 meters squared. 3. Divide the number of kilograms (your weight) by the meters squared number. In this example: 70 ? 3.1 = 22.6. This is your BMI. How is BMI interpreted? To interpret your results, your health care provider will use BMI charts to identify whether you are underweight, normal weight, overweight, or obese. The following guidelines will be used: ? Underweight: BMI less than 18.5. ? Normal weight: BMI between 18.5 and 24.9. ? Overweight: BMI between 25 and 29.9. ? Obese: BMI of 30 and above. Please note: ? Weight includes both fat and muscle, so someone with a muscular build, such as an athlete, may have a BMI that is higher than 24.9. In cases like these, BMI is not an accurate measure of body fat. ? To determine if excess body fat is the cause of a BMI of 25 or higher, further assessments may need to be done by a health care provider. ? BMI is usually interpreted in the same way for men and women. Why is BMI a useful tool? BMI is useful in two ways: ? Identifying a weight problem that may be related to a medical condition, or that may increase the risk for medical problems. ? Promoting lifestyle and diet changes in order to reach a healthy weight. Summary ? Body mass index (BMI) is a number that is calculated from a person's weight and height. ? BMI may help to estimate how much of a person's weight is composed of fat. BMI can help identify those who may be at higher risk for certain medical problems. ? BMI can be measured using Lithuanian measurements or metric measurements. ? To interpret your results, your health care provider will use BMI charts to identify whether you are underweight, normal weight, overweight, or obese. This information is not intended to replace advice given to you by your health care provider. Make sure you discuss any questions you have with your health care provider. Document Released: 04/22/2005 Document Revised: 07/24/2018 Document Reviewed: 06/24/2018 [employer] Patient Education ? 2020 [employer]. Obstetrics and Gynecology Overactive Bladder, Adult Overactive bladder refers to a condition in which a person has a sudden need to pass urine. The person may leak urine if he or she cannot get to the bathroom fast enough (urinary incontinence). A person with this condition may also wake up several times in the night to go to the bathroom. Overactive bladder is associated with poor nerve signals between your bladder and your brain. Your bladder may get the signal to empty before it is full. You may also have very sensitive muscles that make your bladder squeeze too soon. These symptoms might interfere with daily work or social activities. What are the causes? This condition may be associated with or caused by: ? Urinary tract infection. ? Infection of nearby tissues, such as the prostate. ? Prostate enlargement. ? Surgery on the uterus or urethra. ? Bladder stones, inflammation, or tumors. ? Drinking too much caffeine or alcohol. ? Certain medicines, especially medicines that get rid of extra fluid in the body (diuretics). ? Muscle or nerve weakness, especially from: ? A spina (more content not included)... Normal [facility] RAD - MISCon 09-10-2021 [facility] [id number] 0CD:127 Normal [facility] [id number] 0CD:127 Normal [facility] Urology Office/Clinic Noteon 09-10-2021 Urology Office/Clinic Note Chief Complaint 1 year f/u w/KUB HPI Staff Minda is a 76 y/o female here for a 1 year f/u w/KUB. Previous DX: Kidney stone, nocturia, urge incontinence. Dysuria: _denies Incomplete bladder emptying: _yes Hematuria: _denies visible blood Frequency: _denies Urgency: _mild Nocturia: _x1 Stream: _strong Leaking: _sometimes Post void dripping: _sometimes Wearing pads/ Depends: _denies Urge incontinence: _yes Stress incontinence: _denies Incontinence without Sensory Awareness: _denies Abdominal pain: _denies Flank pain: _denies Sexual complaints: _ History of Present Illness Tests Reviewed: Reviewed UA/KUB I have reviewed the previous health record information and history for this patient from Dr. Garcia I have reviewed and verified the staff HPI to be accurate for this encounter. There have been no associated fever, chills, flank pain, or blood in the urine. Denies any urinary infections since last encounter. Review of Systems ROS - Provider Constitutional: denies weight loss, denies hot flashes. Eyes: denies eye problems. Gastrointestinal: denies nausea, denies vomiting. Cardiovascular: denies chest pain or angina. Integumentary: no dryness Musculoskeletal: denies musculoskeletal symptoms. ENMT: denies otolaryngeal symptoms. Respiratory: no shortness of breath. Heme/Lymph: denies easy bleeding tendency, denies easy bruising tendency. Psychiatric: no confusion, no anxiety. Genitourinary: denies dysuria, denies hematuria, denies discharge, denies urinary frequency, denies urinary hesitancy, denies nocturia, moderate incontinence, denies genital sores, denies decreased libido, and denies erectile dysfunction. Physical Exam Vitals & Measurements HR: 79(Peripheral) BP: 157/81 HT: 158 cm HT: 158.0 cm WT: 63.8 kg WT: 63.8 kg BMI: 25.56 General Appearance: alert , no acute distress, well nourished, well developed female. Genitourinary: bladder nonpalpable, no flank pain. Assessment/Plan 1. History of kidney stones (Z87.442: Personal history of urinary calculi) Stable. Current KUB done 09/08/21 showing no stones. No recent stone episode. Patient is to call if symptoms return. Return PRN 2. Urge incontinence (N39.41: Urge incontinence) Mild sxs. Manageable. Will call if sxs worsen. 3. Urinary problem (R39.89: Other symptoms and signs involving the genitourinary system) Interesting patient still working at [employer] which came here the store when I said the KUB is negative he had no stones this patient here for no history no colic. She gets a lot of lower tract UTI with once a year or less treated easily with the Cipro type of medication as she is allergic to penicillin. The urine is clear today there is no urological complaints. Told her at her age with no symptoms I would see her as needed if she develops pain or problems ER or call me so I will see patient as needed Follow-up With When Contact Information DONY SENIOR, GLENNA Miner Within 1 year, only if needed [address] [place], [place] [id number]- Additional Instructions: Patient Education BMI for Adults Overactive Bladder, Adult Aurora Kline, personally scribed for Dr. Garcia on 09/10/2021 08:46:05. . Documentation recorded by the Aurora monroy accurately reflects the services(s) I performed and decisions made by me. Authenticated by Dr. Garcia on 09/10/2021 08:48:57. Problem List/Past Medical History Ongoing Former smoker History of kidney stones Kidney stone Nocturia Urge incontinence Historical No qualifying data Procedure/Surgical History Cystoscopy and retrograde pyelography (06/08/2018), Appendectomy, Tonsillectomy, Tubal ligation. Medications Multi Vitamin+ Allergies Cipro (Nausea and vomiting) penicillin (Unknown) Social History Alcohol - Low Risk, 09/13/2019 Tobacco Former smoker, quit more than 30 days ago Tobacco Use:., 09/11/2020 Former smoker, quit more than 30 days ago Tobacco Use:., 07/07/2019 Family History Cancer: Mother. Hypertension: Mother. Renal stone: Brother. Immunizations Vaccine Date Status Comments influenza virus vaccine, inactivated - Not Given Patient Refuses Lab Results Ambulatory Point of Care Results Bilirubin Urine Dipstick: Negative (09/10/21 08:26:00) Blood Urine Dipstick: Trace-intact (09/10/21 08:26:00) Glucose Urine Dipstick: Negative (09/10/21 08:26:00) Ketones Urine Dipstick: Negative (09/10/21 08:26:00) Leukocytes Urine Dipstick: Trace (09/10/21 08:26:00) Nitrite Urine Dipstick: Negative (09/10/21 08:26:00) Protein Urine Dipstick: Negative (09/10/21 08:26:00) Specific [place] Urine Dipstick: 1.025 (09/10/21 08:26:00) Urine Appearance Urine Dipstick: Clear (09/10/21 08:26:00) Urine Color Urine Dipstick: Yellow (09/10/21 08:26:00) Urobilinogen Urine Dipstick: Normal 0.2-1 EU/dl (09/10/21 08:26:00) pH Urine Dipstick: 5 (09/10/21 08:26:00) [facility] Comment on above: Result Comment: Elec tronically Signed By: Giblert GARCIA MD\.br\Date and Time Signed: 09/10/21 08:49 EST\.br\Electronically Co-Signed By: Aurora Hdz MA\.br\Date and Time Co-Signed: 09/10/21 08:46 EST Physician Orderon 09-07-2021 Physician Order [id number] 0CD:127 Normal [facility] Encounters Encounter Date Encounter Type Care Provider Facility Start: 03-24-2023 End: 03-25-2023 ambulatory Andrius Heidi Ottoitis Facility: [facility] Start: 03-10-2023 End: 03-11-2023 ambulatory Andyahairaus Heidi Ottoitis Facility: [facility] Start: 03-03-2023 End: 03-04-2023 ambulatory Andrius Heidi Ottoitis Facility: [facility] Start: 02-17-2023 End: 02-18-2023 ambulatory Andrius Heidi Ottoitis Facility: [facility] Start: 02-03-2023 End: 02-04-2023 ambulatory Andrius Heidi Ottoitis Facility: [facility] [place] Start: 01-24-2023 End: 01-25-2023 ambulatory Andyahairaus Heidi Ottoitis Facility: [facility] Start: 12-25-2022 End: 12-25-[address] PATO LYNN Facility:[facility] Start: 04-25-2022 End: 04-25-[address] CRISTOPHER BUCHANAN . Facility:[facility] Payers Date Payer Category Payer Medicare 1958 Medicare [id number] 1945 Unknown [id number] 1945 Unknown [id number] 1945 Unknown [id number] 2.. [id number] 1945 Unknown [id number] 2. [id number] 1945 Unknown [id number] 2.16. [id number] 1945 Unknown [id number] 2.. [id number] 1945 Unknown [id number] 2. [id number] 1945 Unknown [id number] 2.16. [id number] Summary Purpose Family History No Family History Records FoundNo Family History Records FoundNo Family History Records Found Advance Directives No Advanced Directives Records FoundNo Advanced Directives Records FoundNo Advanced Directives Records Found Additional Source Comments INFORMATION SOURCE (unrecogn ized section and content) DATE CREATED AUTHOR 11/18/2021 [facility] DATE CREATED AUTHOR AUTHOR'S ORGANIZ ATION 01/31/2023 [facility] DATE CREATED AUTHOR AUTHOR'S ORGANIZ ATION 04/15/2023 [facility] FOR RECORDS PERTAINING TO PATIENTS WHO ARE OR HAVE BEEN ENROLLED IN A CHEMICAL DEPENDENCY/SUBSTANCEABUSE PROGRAM, SOME INFORMATION MAY BE OMITTED. This clinical summary was aggregated from multiple sources. Caution should be exercised in using it in the provision of clinical care. This summary normalizes information from multiple sources, and as a consequence, information in this document may materially change the coding, format and clinical context of patient data. In addition, data may be omitted in some cases. CLINICAL DECISIONS SHOULD BE BASED ON THE PRIMARY CLINICAL RECORDS. [facility] [employer] [facility]. provides no warranty or guarantee of the accuracy or completeness of information in this document.
--- NOTE | 2023-09-11 18:13 | CT_ITS ---
The [address] [address] Patient Name: JOSE DALAL MRN: [id number] date: 1945 Sex: F Assigned Patient Location: ED.MAIN Current Patient Location: ER Accession/Order Number: [id number] Exam Date: 09/11/2023 18:43 Report Date: 09/11/2023 19:05 At the request of: CRISTOPHER BUCHANAN Procedure: CT head/brain wo con EXAM: CT head/brain wo con CLINICAL INDICATION: headache TECHNIQUE: Unenhanced computerized tomography of the head was performed. Automated dose reduction technique was employed. COMPARISON: CT head 08/03/2023 FINDINGS: The ventricles are normal in size, configuration, and position for age. There is no intra- or extra-axial mass, hemorrhage, or fluid collection. 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 No new suspicious areas of abnormal mass effect or attenuation are noted. There is stable mild subcortical, deep, and periventricular white matter low-attenuation, compatible with changes of chronic small vessel ischemic disease. Visualized paranasal sinuses are free of mucosal disease. No depressed calvarial fracture. CT/CT head/brain wo con IMPRESSION: No acute intracranial abnormality noted. Electronically authenticated by: VIVIANE TAPIA Date: 09/11/2023 19:05
--- NOTE | 2023-09-11 18:15 | ED_ITS ---
HPI - General Adult General Chief complaint: Dental/Oral Stated complaint: Postoperative complication Time Seen by Provider: 09/11/23 17:58 Source: patient Mode of arrival: walk-in Limitations: no limitations History of Present Illness HPI narrative: Patient developed headache 09/04/23. The next day she had extraction of 6 teeth on the lower jaw at [facility]. That night after the surgery she had increased pain in the jaw so she started taking the motrin that the dentist prescribed. Over the next 6 days, she has had persistent frontal headache with intermittent nausea and poor appetite. She developed midline abdominal pain 2 days ago that has been constant since. She stopped taking the Motrin when the abdominal pain started. She has been taking Tylenol since and it has helped the headache and abdominal pain a little . She did not take any Tylenol today. No vomiting or diarrhea. Related Data Previous Rx's Medication Instructions Recorded sulfamethoxazole 800 1 tab PO BID #10 tabs 06/23/23 mg-trimethoprim 160 mg tablet (Bactrim DS) cyclobenzaprine 10 mg tablet 10 mg PO TID PRN muscle spasm #20 08/03/23 tabs ibuprofen 800 mg tablet 800 mg PO Q8H PRN pain #20 tabs 08/03/23 Allergies Allergy/AdvReac Type Severity Reaction Status Date / Time Penicillins Allergy Mild Flushing Verified 08/03/23 09:31 [facility] Medical History Acid reflux ?K21.9 - Gastro-esophageal reflux disease without esophagitis (ICD-10) Kidney calculi ?N20.0 - Calculus of kidney (ICD-10) Neck pain ?M54.2 - Cervicalgia (ICD-10) Surgical History History of bilateral tubal ligation ?Z98.51 - Tubal ligation status (ICD-10) History of phacoemulsification of cataract of both eyes with intraocular lens implantation ?Z98.41 - Cataract extraction status, right eye (ICD-10) ?Z98.42 - Cataract extraction status, left eye (ICD-10) ?Z96.1 - Presence of intraocular lens (ICD-10) Hx of appendectomy ?Z90.49 - Acquired absence of other specified parts of digestive tract (ICD- 10) Social History Smoking status: Former smoker Exam Narrative Exam Narrative: Nurses notes and vital signs reviewed and patient is not hypoxic. afebrile General: Well-appearing and in no apparent distress. Skin: Warm, dry, no pallor noted. No rash. Head: Normocephalic, atraumatic. Neck: Supple, non-tender. No meningismus. No cervical lymphadenopathy. Eye: Pupils are equal, round and EOMI. No scleral icterus. Ears, Nose, Mouth, and Throat: TM are clear, no posterior oropharynx erythema or nasal mucosal hypertrophy, uvula is mid-line. Lower gums are without swelling, drainage, abscess or sign of infection. Oral mucosa is moist Cardiovascular: Tachycardia. Respiratory: No accessory muscle use or respiratory distress. Lungs are clear to auscultation, no wheezing, rales or rhonchi Back: No CVA tenderness Musculoskeletal: normal ROM, no lower extremity edema/swelling GI: Abdomen is soft, non-distended. Normal bowel sounds. Midline abdominal tenderness to palpation at umbilicus. No rebound, guarding, or rigidity noted. Neurological: A&O x4. No cranial nerve dysfunction observed. No truncal ataxia. Moves all extremities. Sensation intact. Psychiatric: Cooperative and interactive. Normal mood and affect. Constitutional Vital Signs, click to edit/add: Last Vital Signs Temp 99.6 F 09/11/23 17:58 Pulse 116 H 09/11/23 17:58 Resp 09/11/23 17:58 BP 163/86 H 09/11/23 17:58 Pulse Ox 97 09/11/23 17:58 O2 Del Method Room Air 09/11/23 17:58 Course Vital Signs Vital signs: Vital Signs Temperature 99.6 F 09/11/23 17:58 Pulse Rate 116 H 09/11/23 17:58 Respiratory Rate 20 09/11/23 17:58 Blood Pressure 163/86 H 09/11/23 17:58 Pulse Oximetry 97 09/11/23 17:58 Oxygen Delivery Method Room Air 09/11/23 17:58 Temperature 99.6 F 09/11/23 17:58 Pulse Rate 116 H 09/11/23 17:58 Respiratory Rate 09/11/23 17:58 Blood Pressure 163/86 H 09/11/23 17:58 Pulse Oximetry 97 09/11/23 17:58 Oxygen Delivery Method Room Air 09/11/23 17:58 Medical Decision Making MDM Narrative Medical decision making narrative: Peripheral IV was ordered to be established and blood drawn and sent for testing. Patient was ordered to receive normal saline IV fluid, IV Protonix, IV Zofran. She was ordered to undergo noncontrast CT scanning of the brain since his headache is unusual for her in terms of duration. Severity is moderate and it is not the worst headache of her life. She was ordered to receive oral Tylenol for the headache. I do not see any evidence of dental abscess or gum infection in association with her surgery. I talked to her about following up with Devika garrett to be reevaluated. Patient signed out to Dr Bruner at 7pm shift change to follow up with all test results and determine treatment and disposition. Lab Data Labs: Lab Results 09/11/23 Range/Units 18:22 Influenza Type A Ag Negative Influenza Type B Ag Negative SARS-CoV-2 Ag (CV2AG) Negative (NEGATIVE) Discharge Plan Discharge Chief Complaint: Dental/Oral Patient Disposition: Still a Patient Prescriptions / Home Meds: No Action sulfamethoxazole-trimethoprim [Bactrim DS] 800-160 mg tablet 1 tab PO BID Qty: 10 0RF cyclobenzaprine 10 mg tablet 10 mg PO TID PRN (Reason: muscle spasm) Qty: 20 0RF ibuprofen 800 mg tablet 800 mg PO Q8H PRN (Reason: pain) Qty: 20 0RF Referrals: Physician,Non-Staff, MD [Primary Care Provider] - 1 week
--- NOTE | 2023-09-11 18:35 | XR_ITS ---
[place] [id number] Patient Name: JOSE DALAL MRN: [id number] date: 1945 Sex: F Assigned Patient Location: ER Current Patient Location: ED.MAIN Accession/Order Number: [id number] Exam Date: 09/11/2023 18:50 Report Date: 09/11/2023 19:53 At the request of: CRISTOPHER BUCHANAN Procedure: XR abdomen min 2V EXAMINATION: XR abdomen min 2V, [id number] HISTORY: abdominal pain COMPARISON: Abdominal x-ray 09/08/2021 FINDINGS: Nonobstructive bowel gas pattern. No pneumoperitoneum, pneumatosis, or portal venous gas demonstrated. No abnormal soft tissue calcifications. Stool burden is moderately above-average. XR/XR abdomen min 2V IMPRESSION: Moderate colonic stool burden. Electronically authenticated by: LETY BATEMAN Date: 09/11/2023 19:53
[2023-09-11 18:58] LABS: Influenza Virus A Antigen Negative; Influenza Virus B Antigen Negative; Internal Control Within Normal Limits; SARS-CoV-2 Ag NEGATIVE (NEGATIVE)
[2023-09-11 19:01] LABS: Hematocrit 26.7 % (36.0-48.0); Hemoglobin 8.5 g/dL (12.0-16.0); Mean Corpuscular HGB Conc 31.8 g/dL (29.9-35.2); Mean Corpuscular Hemoglobin 28.3 pg (26.7-34.0); Mean Platelet Volume 8.5 fL (9.5-13.5); Platelet Count 544 10^3/uL (150-450); Red Cell Distribution Width 13.9 % (11.0-15.0); White Blood Count 15.4 10^3/uL (4.0-11.0)
[2023-09-11] MEDS: ONDANSETRON PF 4 MG/2 ML VIAL IV (19:04)
[2023-09-11] MEDS: ACETAMINOPHEN 500 MG TABLET 1000 MG PO (19:04)
[2023-09-11] MEDS: PANTOPRAZOLE SODIUM 40 MG VIAL IV (19:04)
[2023-09-11 19:05] VITALS: BP 148/72; PULSE 115; O2SAT 97
[2023-09-11 19:17] LABS: Alanine Aminotransferase 33 U/L (14-59); Albumin Globulin Ratio 0.5; Albumin Level 2.1 g/dL (3.4-5.0); Alkaline Phosphatase 194 U/L (46-116); Anion Gap 13.9; Aspartate Amino Transferase 19 U/L (15-37); BUN Creatinine Ratio 20.9; Bilirubin Total 0.6 mg/dL (0.2-1.0); Calcium 8.4 mg/dL (8.5-10.1); Carbon Dioxide 29.2 mmol/L (21.0-32.0); Chloride 98 mmol/L (98-107); Estimated GFR (African America >60 (>=60); Estimated GFR (Non-African Ame >60 (>=60); Globulin 4.6 g/dL; Glucose 94 mg/dL (74-106); Potassium 3.1 mmol/L (3.5-5.1); Sodium 138 mmol/L (136-145); Total Protein 6.7 g/dL (6.4-8.2)
[2023-09-11 19:24] LABS: Hypochromasia 3+; Lymphocytes Absolute Manual 1.54 10^3/uL (1.20-3.80); Monocytes Absolute Manual 1.38 10^3/uL (0.30-0.80); Segmented Neut Absolute Manual 12.16 10^3/uL (1.4-6.5)
[2023-09-11 20:00] VITALS: BP 138/79
[2023-09-11 20:27] VITALS: BP 152/74; PULSE 111; O2SAT 95
== END 2023-09-11 20:29 | disposition home or self-care (01) ==
PROVIDERS: Emergency Medicine; Emergency Provider Emergency Medicine
DX: R51.9 Headache, unspecified (principal); K08.89 Other specified disorders of teeth and supporting structures; G89.18 Other acute postprocedural pain; K59.00 Constipation, unspecified; K21.9 Gastro-esophageal reflux disease without esophagitis; Z87.442 Personal history of urinary calculi; Z90.49 Acquired absence of other specified parts of digestive tract; Z98.41 Cataract extraction status, right eye; Z98.42 Cataract extraction status, left eye; Z96.1 Presence of intraocular lens; Z98.51 Tubal ligation status; Z87.891 Personal history of nicotine dependence; Z20.822 Contact with and (suspected) exposure to COVID-19
CPT/HCPCS: 36415; 70450; 74019; 80053; 83605; 83690; 85027; 87040; 87804; 87811; 96374; 96375; 99285; J2405

== ENCOUNTER 2023-09-21 12:57 | Emergency (ER) | payer MEDICARE, SELFPAY ==
[2023-09-21 13:00] VITALS: BP 141/81; PULSE 118; RESP 20; TEMP 37; O2SAT 97; BMI 23.8
--- OUTSIDE RECORDS SUMMARY | 2023-09-21 13:05 | XMS_ITS | CCD ---
Author Name Unknown Address [address] [place] [address] Organization [facility] Care Team Providers Care Day Care Home Mother Name Role Phone LEAH, DR PATO Perez Admitting Unavailabl e LEAH, DR PATO Perez Consulting Unavailabl e LEAH, DR PATO Perez Attending Unavailalonso e HOUSE, DR BECKHAM Primary Care Unavailable SHANTELL GARCIA Consulting Unavailable CHANEL ., DR NICHOLAS Attending Unavailable KARAN JENKINS Consulting Unavailable JORGE, DR BECKHAM Primary Care Unavailable CHANEL ., DR NICHOLAS Admitting Unavailable LADI LOPEZ Consulting Unavailable Giconor SENIRO, Andrius Gordon Attending Unavailable Giedraitis , Andrius Heidi Attending Unavailable Giedraitis MD, Andrius Vytautkathie Attending Unavailable Giedraitis , Andrius Vytautkathie Attending Unavailable Giedraitis MD, Andrius Vytautkathie Attending Unavailable Giedraitis MD, Andrius Vytautkathie Attending Unavailable Allergies Allergy Classification Reported Allergen(s) Allergy Type Date of Onset Reaction(s) Facility (1 source) Penicillins Drug allergy (disorder) [facility] Repository Problems Active Problems Problem Classification Problem [...] by: SHANTELL GARCIA Date: 2022-12-25 08:22 Normal [facility] XR KNEE RT 4V or >on 022 [...] lateral and patellofemoral compartments where there is omlt-de-rmen contact. 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 Electronically authenticated by: KARAN JENKINS Date: 2022-04-25 19:06 Normal [facility] Patient Educationon 09-10-19 Patient Education Nutrition BMI [...] height. This can be done either in [place] ([place] or metric measurements. Note that charts are available to help you find your BMI quickly and easily without having to do these calculations yourself. To calculate your BMI in [place] ([place] measurements, your health care provider will: [...] problems. ? BMI can be measured using [place] measurements or metric measurements. ? To interpret [...] 04/22/2005 Document Revised: 07/24/2018 Document Reviewed: 06/24/2018 [employer] Patient Education ? 2020 [employer]. Obstetrics and Gynecology Overactive Bladder, Adult Overactive [...] A spina (more content not included)... Normal [facility] RAD - MISCon 09-10-2021 [facility] [id number] 0CD:127 Normal [facility] 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 [address] [place], [place] [id number]- Additional Instructions: Patient Education BMI for Adults [...] Protein Urine Dipstick: Negative (09/10/21 08:26:00) Specific [place] Urine Dipstick: 1.025 (09/10/21 08:26:00) Urine Appearance Urine Dipstick: Clear (09/10/21 08:26:00) Urine Color Urine Dipstick: Yellow (09/10/21 08:26:00) Urobilinogen Urine Dipstick: Normal 0.2-1 EU/dl (09/10/21 08:26:00) pH Urine Dipstick: 5 (09/10/21 08:26:00) [facility] Comment on above: Result Comment: Elec tronically Signed By: Gilbert GARCIA MD\.br\Date and Time Signed: 09/10/21 08:49 EST\.br\Electronically Co-Signed By: Aurora Hdz MA\.br\Date and Time Co-Signed: 09/10/21 08:46 EST Physician Orderon 09-07-2021 Physician Order [id number] 0CD:127 Normal [facility] Encounters Encounter Date Encounter Type Care Provider Facility Start: 03-24-2023 End: 03-25-2023 ambulatory Andrius Heidi Ottoitis Facility: [facility] Start: 03-10-2023 End: 03-11-2023 ambulatory Andyahairaus Heidi Ottoitis Facility: [facility] Start: 03-03-2023 End: 03-04-2023 ambulatory Andrius Heidi Ottoitis Facility: [facility] Start: 02-17-2023 End: 02-18-2023 ambulatory Andrius Heidi Ottoitis Facility: [facility] Start: 02-03-2023 End: 02-04-2023 ambulatory Andrius Heidi Ottoitis Facility: [facility] Start: 01-24-2023 End: 01-25-2023 ambulatory Andyahairaus Heidi Ottoitis Facility: [facility] Start: 12-25-2022 End: 12-25-[address] PATO LYNN Facility:[facility] Start: 04-25-2022 End: 04-25-[address] CRISTOPHER BUCHANAN . Facility:[facility] Payers Date Payer Category Payer Medicare 1958 Medicare [id number] 1945 Unknown [id number] 2.16.84 [id number] 1945 Unknown [id number] .16.84 [id number] 1945 Unknown [id number] 2.. [id number] 1945 Unknown [id number] 2. [id number] 1945 Unknown [id number] 2.16. [id number] 1945 Unknown [id number] 2.. [id number] 1945 Unknown [id number] 2. [id number] 1945 Unknown [id number] 2.16. [id number] Summary Purpose Family History No Family History Records FoundNo Family History Records FoundNo Family History Records Found Advance Directives No Advanced Directives Records FoundNo Advanced Directives Records FoundNo Advanced Directives Records Found Additional Source Comments INFORMATION SOURCE (unrecogn ized section and content) DATE CREATED AUTHOR 11/18/2021 [facility] DATE CREATED AUTHOR AUTHOR'S ORGANIZ ATION 01/31/2023 [facility] DATE CREATED AUTHOR AUTHOR'S ORGANIZ ATION 04/15/2023 [facility] FOR RECORDS PERTAINING TO PATIENTS WHO [...] BE BASED ON THE PRIMARY CLINICAL RECORDS. [facility] [employer] [facility]. provides no warranty or guarantee of the accuracy or completeness of information in this document.
--- NOTE | 2023-09-21 13:15 | ECG_ITS ---
The [facility] Test Date: 2023-09-21 Pat Name: JOSE DALAL Department: Room: - Gender: Female Quality Review Specialist: : 1945 Requested By: Order Number: [id number] Reading MD: RAJIV NUGENT Measurements Intervals [place] Rate: 108 P: 67 CO: 138 QRS: 64 QRSD: 76 T: 45 QT: 318 QTc: 382 Interpretive Statements 1120 Sinus tachycardia 1470 with occasional supraventricular premature complexes 9140 abnormal rhythm ECG Compared to ECG 06/26/2019 18:58:32 No significant changes Electronically Signed On 09-22-2023 6:58:17 EST by RAJIV NUGENT
--- NOTE | 2023-09-21 13:15 | CT_ITS ---
The [address] [address] Patient Name: JOSE DALAL MRN: [id number] date: 1945 Sex: F Assigned Patient Location: ER Current Patient Location: .[facility] Accession/Order Number: [id number] Exam Date: 09/21/2023 13:35 Report Date: 09/21/2023 13:59 At the request of: YOEL GAVIN Procedure: CT head/brain wo con EXAM: CT head/brain wo con HISTORY: visual disturbance COMPARISON: CT brain 09/11/2023 TECHNIQUE: Axial CT scans through the head were obtained without IV contrast administration. Dose reduction techniques were achieved by using: automated exposure control and/or adjustment of mA and /or kV according to patient size and/or use of iterative reconstruction technique. FINDINGS: There is no evidence of acute intracranial hemorrhage or abnormal extra-axial fluid collection. No mass effect or midline shift is seen. There is no evidence of large acute territorial infarction. There is no hydrocephalus. Mild enlarged cerebral sulci, consistent with age appropriate cerebral atrophy. Mild low-attenuation scattered patchy areas are present in supratentorial white matter, likely represents chronic microvascular ischemia. To the limit of CT, the posterior fossa appears unremarkable. No definite acute fracture is identified. Soft tissues are unremarkable. The visualized orbits show no abnormality. The visualized paranasal sinuses show no air-fluid level. Mastoid air cells are clear. CT/CT head/brain wo con IMPRESSION: No CT evidence of acute intracranial abnormality. If there is sufficient clinical concern for acute brain parenchymal pathology, consider MRI for further evaluation. Mild chronic microvascular ischemia and involutional changes. Electronically authenticated by: LOUIS ROBERTSU Date: 09/21/2023 13:59
[2023-09-21 13:38] LABS: Basophils Percent Auto 0.3 % (0.2-2.0); Eosinophils Absolute Auto 0.1 10^3/uL (0.0-0.7); Eosinophils Percent Auto 0.8 % (0.9-7.0); Hematocrit 26.8 % (36.0-48.0); Hemoglobin 8.3 g/dL (12.0-16.0); Immature Granulocytes Pct Auto 0.7 % (0.0-0.5); Lymphocytes Absolute Auto 1.5 10^3/uL (1.2-3.8); Lymphocytes Percent Auto 10.2 % (20.5-60.0); Mean Corpuscular Hemoglobin 27.9 pg (26.7-34.0); Mean Corpuscular Volume 90.2 fL (81.0-99.0); Mean Platelet Volume 8.2 fL (9.5-13.5); Monocytes Absolute Auto 1.4 10^3/uL (0.3-0.8); Monocytes Percent Auto 9.4 % (1.7-12.0); Neutrophils Absolute Auto 11.4 10^3/uL (1.4-6.5); Neutrophils Percent Auto 78.6 % (43.0-75.0); Platelet Count 797 10^3/uL (150-450); Red Blood Count 2.97 10^6/uL (4.20-5.40); Red Cell Distribution Width 14.5 % (11.0-15.0); White Blood Count 14.4 10^3/uL (4.0-11.0)
[2023-09-21 13:45] LABS: Anion Gap 9.3; BUN Creatinine Ratio 22.2; Calcium 8.7 mg/dL (8.5-10.1); Carbon Dioxide 32.4 mmol/L (21.0-32.0); Chloride 100 mmol/L (98-107); Estimated GFR (African America >60 (>=60); Estimated GFR (Non-African Ame >60 (>=60); Glucose 110 mg/dL (74-106); Potassium 3.7 mmol/L (3.5-5.1); Sodium 138 mmol/L (136-145)
[2023-09-21] MEDS: ONDANSETRON 4 MG RAPDIS TABLET SL (14:26)
--- NOTE | 2023-09-21 14:48 | ED_ITS ---
HPI - Eye Problem General Chief complaint: Eye Problems Stated complaint: EYE PROBLEM Time Seen by Provider: 09/21/23 13:02 Source: patient Mode of arrival: walk-in History of Present Illness HPI Narrative: 78-year-old female presents for vision problems. This began two days ago and she saw her eye doctor that day. She was diagnosed with what sounds like optic neuritis. She described that she was told she has swelling on her optic nerve. She has an appointment with an sales and marketing specialist in [place] tomorrow at 12:45 PM. Today she felt like she had trouble with her vision in the right eye but that resolved completely and her symptoms are back to the way she was a few days ago. She doesn't have a headache and there is been no trauma. The left eye is unchanged. Related Data Previous Rx's Medication Instructions Recorded sulfamethoxazole 800 1 tab PO BID #10 tabs 06/23/23 mg-trimethoprim 160 mg tablet (Bactrim DS) cyclobenzaprine 10 mg tablet 10 mg PO TID PRN muscle spasm #20 08/03/23 tabs ibuprofen 800 mg tablet 800 mg PO Q8H PRN pain #20 tabs 08/03/23 Allergies Allergy/AdvReac Type Severity Reaction Status Date / Time Penicillins Allergy Mild Flushing Verified 08/03/23 09:31 Review of Systems ROS Narrative A ten point review of systems is negative except as noted above. PFSH PFSH Medical History Acid reflux ?K21.9 - Gastro-esophageal reflux disease without esophagitis (ICD-10) Kidney calculi ?N20.0 - Calculus of kidney (ICD-10) Neck pain ?M54.2 - Cervicalgia (ICD-10) Surgical History History of bilateral tubal ligation ?Z98.51 - Tubal ligation status (ICD-10) History of phacoemulsification of cataract of both eyes with intraocular lens implantation ?Z98.41 - Cataract extraction status, right eye (ICD-10) ?Z98.42 - Cataract extraction status, left eye (ICD-10) ?Z96.1 - Presence of intraocular lens (ICD-10) Hx of appendectomy ?Z90.49 - Acquired absence of other specified parts of digestive tract (ICD- 10) Social History Smoking status: Former smoker Exam Narrative Exam Narrative: Nurses note and vital signs reviewed and patient is not hypoxic. General: The patient appears well and in no apparent distress. Patient is resting comfortably on cart. Skin: Warm, dry, no pallor noted. There is no rash noted. Head: Normocephalic, atraumatic Eye: Normal conjunctiva, no drainage, EOMI. PERRL Ears, Nose, Mouth, and Throat: oral mucosa is moist. Nares patent. Cardiovascular: Regular Rate and Rhythm Respiratory: Patient is in no distress, no accessory muscle use, lungs are clear to auscultation, no wheezing, rales or rhonchi Back: non-tender GI: soft and nontender Musculoskeletal: The patient has no evidence of calf tenderness, no pitting edema, symmetrical pulses noted bilaterally Neurological: A&O, normal speech; upper and lower extremity strength intact Psychiatric: Cooperative Constitutional Vital Signs, click to edit/add: Last Vital Signs Temp 98.6 F 09/21/23 13:00 Pulse 118 H 09/21/23 13:00 Resp 20 09/21/23 13:00 BP 141/81 09/21/23 13:00 Pulse Ox 97 09/21/23 13:00 Course Vital Signs Vital signs: Vital Signs Temperature 98.6 F 09/21/23 13:00 Pulse Rate 118 H 09/21/23 13:00 Respiratory Rate 20 09/21/23 13:00 Blood Pressure 141/81 09/21/23 13:00 Pulse Oximetry 97 09/21/23 13:00 Temperature 98.6 F 09/21/23 13:00 Pulse Rate 118 H 09/21/23 13:00 Respiratory Rate 20 09/21/23 13:00 Blood Pressure 141/81 09/21/23 13:00 Pulse Oximetry 97 09/21/23 13:00 MDM - Eye Problem MDM Narrative Medical decision making narrative: workup including CAT scan is negative. She'll see her sales and marketing specialist tomorrow. There is no indication for admission to the hospital at this point. Treatment diagnosis and follow-up were discussed with the patient. I do not clinically suspect a stroke. Differential Diagnosis Differential diagnosis: Likely other (optic neuritis, retinal detachment,) Lab Data Attestation: I reviewed the patient's lab results. Labs: Lab Results 09/21/23 Range/Units 13:29 WBC 14.4 H (4.0-11.0) 10^3/uL RBC 2.97 L (4.20-5.40) 10^6/uL Hgb 8.3 L (12.0-16.0) g/dL Hct 26.8 L (36.0-48.0) % MCV 90.2 (81.0-99.0) fL MCH 27.9 (26.7-34.0) pg MCHC 31.0 (29.9-35.2) g/dL RDW 14.5 (11.0-15.0) % Plt Count 797 H (150-450) 10^3/uL MPV 8.2 L (9.5-13.5) fL Neut % (Auto) 78.6 H (43.0-75.0) % Lymph % (Auto) 10.2 L (20.5-60.0) % [place] % (Auto) 9.4 (1.7-12.0) % Eos % (Auto) 0.8 L (0.9-7.0) % Baso % (Auto) 0.3 (0.2-2.0) % Neut # (Auto) 11.4 H (1.4-6.5) 10^3/uL Lymph # (Auto) 1.5 (1.2-3.8) 10^3/uL [place] # (Auto) 1.4 H (0.3-0.8) 10^3/uL Eos # (Auto) 0.1 (0.0-0.7) 10^3/uL Baso # (Auto) 0.0 (0.0-0.1) 10^3/uL Abs Immat Gran (auto) 0.10 H (0.00-0.03) 10^3/uL Imm/Tot Granulo (auto) 0.7 H (0.0-0.5) % Sodium 138 (136-145) mmol/L Potassium 3.7 (3.5-5.1) mmol/L Chloride 100 (98-107) mmol/L Carbon Dioxide 32.4 H (21.0-32.0) mmol/L Anion Gap 9.3 BUN 16.0 (7.0-18.0) mg/dL Creatinine 0.72 (0.55-1.02) mg/dL Est GFR ( Amer) >60 (>=60) Est GFR (Non-Af Amer) >60 (>=60) BUN/Creatinine Ratio 22.2 Glucose 110 H (74-106) mg/dL Calcium 8.7 (8.5-10.1) mg/dL Imaging Data CT scan - head: Radiologist's impression: ITS Impressions Head CT 09/21/23 13:15 IMPRESSION: No CT evidence of acute intracranial abnormality. If there is sufficient clinical concern for acute brain parenchymal pathology, consider MRI for further evaluation. Mild chronic microvascular ischemia and involutional changes. Electronically authenticated by: LOUIS FOWLER Date: 09/21/2023 13:59 ECG Data Attestation: I personally reviewed and interpreted this ECG as follows: (EKG on my interpretation shows normal sinus rhythm with a rate of 108.) Discharge Plan Discharge Chief Complaint: Eye Problems Clinical Impression: Visual disturbance Patient Disposition: Home, Self-Care Time of Disposition Decision: 14:47 Condition: Good Mode of Transportation: Private Vehicle Prescriptions / Home Meds: No Action sulfamethoxazole-trimethoprim [Bactrim DS] 800-160 mg tablet 1 tab PO BID Qty: 10 0RF cyclobenzaprine 10 mg tablet 10 mg PO TID PRN (Reason: muscle spasm) Qty: 20 0RF ibuprofen 800 mg tablet 800 mg PO Q8H PRN (Reason: pain) Qty: 20 0RF Instructions: Blurred Vision (ED) Additional Instructions: See the sales and marketing specialist at [facility] appointment tomorrow at 12:45 PM Stand Alone Forms: Portal Instructions Referrals: Physician,Non-Staff, MD [Primary Care Provider] - 1 week
== END 2023-09-21 14:58 | disposition home or self-care (01) ==
PROVIDERS: Emergency Provider Emergency Medicine
DX: H53.9 Unspecified visual disturbance (principal); K21.9 Gastro-esophageal reflux disease without esophagitis; Z87.442 Personal history of urinary calculi; Z96.1 Presence of intraocular lens; Z90.49 Acquired absence of other specified parts of digestive tract; Z87.891 Personal history of nicotine dependence
CPT/HCPCS: 36415; 70450; 80048; 85025; 93005; Q0162

== ENCOUNTER 2023-09-22 13:50 | Observation (INO) | payer MEDICARE, SELFPAY ==
[2023-09-22] VITALS (9 sets, daily range): BP systolic 144–151; BP diastolic 69–96; PULSE 97–107; RESP 16–18; TEMP 36.6–36.7; O2SAT 96–98; BMI 23.8
--- OUTSIDE RECORDS SUMMARY | 2023-09-22 14:02 | XMS_ITS | CCD ---
Author Name Unknown Address [address] [place] [address] Organization [facility] Care Team Providers Care Patient Office Rep Name Role Phone LEAH, DR PATO Perez [...] (1 source) Penicillins Drug allergy (disorder) [facility] Repository Problems Active Problems Problem Classification Problem [...] by: SHANTELL GARCIA Date: 2022-12-25 08:22 Normal [facility] XR KNEE RT 4V or >on [...] lateral and patellofemoral compartments where there is lcgu-qd-yvkl contact. 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 Electronically authenticated by: KARAN JENKINS Date: 2022-04-25 19:06 Normal [facility] Patient Educationon 09-10-19 Patient Education Nutrition [...] height. This can be done either in [place] ([place] or metric measurements. Note that charts are available to help you find your BMI quickly and easily without having to do these calculations yourself. To calculate your BMI in [place] ([place] measurements, your health care provider will: [...] problems. ? BMI can be measured using [place] measurements or metric measurements. ? To interpret [...] 04/22/2005 Document Revised: 07/24/2018 Document Reviewed: 06/24/2018 [employer] Patient Education ? 2020 [employer]. Obstetrics and Gynecology Overactive Bladder, Adult Overactive [...] A spina (more content not included)... Normal [facility] RAD - MISCon 09-10-2021 [facility] [id number] 0CD:127 Normal [facility] [id number]. [id number] 0CD:127 Normal [facility] Urology Office/Clinic Noteon 09-10-2021 Urology Office/Clinic Note [...] genitourinary system) Interesting patient still working at [employer] which came here the store when I [...] Miner Within 1 year, only if needed [address] [place], [place] [id number]- Additional Instructions: Patient Education BMI for Adults [...] Protein Urine Dipstick: Negative (09/10/21 08:26:00) Specific [place] Urine Dipstick: 1.025 (09/10/21 08:26:00) Urine Appearance Urine Dipstick: Clear (09/10/21 08:26:00) Urine Color Urine Dipstick: Yellow (09/10/21 08:26:00) Urobilinogen Urine Dipstick: Normal 0.2-1 EU/dl (09/10/21 08:26:00) pH Urine Dipstick: 5 (09/10/21 08:26:00) [facility] Comment on above: Result Comment: Elec tronically Signed By: Gilbert GARCIA MD\.br\Date and Time Signed: 09/10/21 08:49 EST\.br\Electronically Co-Signed By: Aurora Hdz MA\.br\Date and Time Co-Signed: 09/10/21 08:46 EST Physician Orderon 09-07-2021 Physician Order [id number] 0CD:127 Normal [facility] Encounters Encounter Date Encounter Type Care Provider Facility Start: 03-24-2023 End: 03-25-2023 ambulatory Andrius Heidi Ottoitis Facility: [facility] Start: 03-10-2023 End: 03-11-2023 ambulatory Andyahairaus Heidi Ottoitis Facility: [facility] [place] Start: 03-03-2023 End: 03-04-2023 ambulatory Andrius Heidi Ottoitis Facility: [facility] [place] Start: 02-17-2023 End: 02-18-2023 ambulatory Andrius Heidi Ottoitis Facility: [facility] Start: 02-03-2023 End: 02-04-2023 ambulatory Andrius Heidi Ottoitis Facility: [facility] [place] Start: 01-24-2023 End: 01-25-2023 ambulatory Andyahairaus Heidi Ottoitis Facility: [facility] [place] Start: 12-25-2022 End: 12-25-[address] PATO LYNN Facility:[facility] Start: 04-25-2022 End: 04-25-[address] CRISTOPHER BUCHANAN . Facility:[facility] Payers Date Payer Category Payer Medicare 1958 Medicare [id number] 1945 Unknown [id number] 2.16.84 [id number] 1945 Unknown [id number] .16.84 [id number] 1945 Unknown [id number] 2.. [id number] 1945 Unknown [id number] 2. [id number] 1945 Unknown [id number] 2.16. [id number] 1945 Unknown [id number] 2.. [id number] 1945 Unknown [id number] 2. [id number] 1945 Unknown [id number] 2.16. [id number] Summary Purpose Family History No Family History Records FoundNo Family History Records FoundNo Family History Records Found Advance Directives No Advanced Directives Records FoundNo Advanced Directives Records FoundNo Advanced Directives Records Found Additional Source Comments INFORMATION SOURCE (unrecogn ized section and content) DATE CREATED AUTHOR 11/18/2021 [facility] DATE CREATED AUTHOR AUTHOR'S ORGANIZ ATION 01/31/2023 [facility] DATE CREATED AUTHOR AUTHOR'S ORGANIZ ATION 04/15/2023 [facility] FOR RECORDS PERTAINING TO PATIENTS WHO [...] BE BASED ON THE PRIMARY CLINICAL RECORDS. [facility] [employer] [facility]. provides no warranty or guarantee of the accuracy or completeness of information in this document.
--- NOTE | 2023-09-22 14:17 | ECG_ITS ---
The [facility] Test Date: 2023-09-22 Pat Name: JOSE DALAL Department: Room: - Gender: Female Surgical Coordinator: : 1945 Requested By: Order Number: [id number] Reading MD: RAIJV NUGENT Measurements Intervals [place] Rate: 100 P: 66 TN: 144 QRS: 57 QRSD: 76 T: 57 QT: 334 QTc: 390 Interpretive Statements 1100 Sinus tachycardia 9110 normal ECG Compared to ECG 09/21/2023 13:06:37 Sinus tachycardia no longer present Electronically Signed On 09-22-2023 19:59:24 EST by RAJIV NUGENT
--- NOTE | 2023-09-22 14:19 | ED.EYEPROB1 ---
HPI - Eye Problem General Chief complaint: Eye Problems Stated complaint: CVA SYMPTOMS Time Seen by Provider: 09/22/23 13:50 Source: patient Mode of arrival: walk-in Limitations: no limitations History of Present Illness HPI Narrative: Patient is a 78-year-old female with a history of chronic neck pain and back pain who presents to the emergency department at the recommendation of the drip box tender she saw in [place] immediately prior to arrival.Patient was seen in this emergency department yesterday for visual disturbance of the left eye. She saw an drip box tender in [place] today who evaluated her for giant cell arteritis based on the handwritten note from the drip box tender that was sent with the patient, patient states she has had visual loss intermittently in the left eye for the last 3 days. She currently states she cannot see anything out of her left eye although she states she is able to see some shapes. She was not able to see light or dark on the drip box tender exam today. She states yesterday she developed similar symptoms in the right eye. She denies headache, peripheral paresthesias, speech changes, fevers, chills, nausea, vomiting, chest pain, shortness of breath. She does not take any blood thinners. She has no history of stroke or coronary artery disease. Related Data Previous Rx's Medication Instructions Recorded sulfamethoxazole 800 1 tab PO BID #10 tabs 06/23/23 mg-trimethoprim 160 mg tablet (Bactrim DS) cyclobenzaprine 10 mg tablet 10 mg PO TID PRN muscle spasm #20 08/03/23 tabs ibuprofen 800 mg tablet 800 mg PO Q8H PRN pain #20 tabs 08/03/23 Allergies Allergy/AdvReac Type Severity Reaction Status Date / Time Penicillins Allergy Mild Flushing Verified 08/03/23 09:31 Review of Systems ROS Constitutional Denies: fever or chills Eyes Reports: change in vision; Denies: light sensitivity or eye discomfort Ears, nose, mouth, and throat Denies: throat pain or nasal congestion Cardiovascular Denies: chest pain Respiratory Denies: shortness of breath or cough Gastrointestinal Denies: nausea, vomiting or diarrhea Genitourinary Denies: painful urination Musculoskeletal Denies: back pain Integumentary/Breast Denies: rash Neurological Denies: headache, numbness in extremities, weakness in extremities, lack of coordination or dizziness Endocrine Denies: excessive urination [facility] Medical History Acid reflux ?K21.9 - Gastro-esophageal reflux disease without esophagitis (ICD-10) Kidney calculi ?N20.0 - Calculus of kidney (ICD-10) Neck pain ?M54.2 - Cervicalgia (ICD-10) Surgical History History of bilateral tubal ligation ?Z98.51 - Tubal ligation status (ICD-10) History of phacoemulsification of cataract of both eyes with intraocular lens implantation ?Z98.41 - Cataract extraction status, right eye (ICD-10) ?Z98.42 - Cataract extraction status, left eye (ICD-10) ?Z96.1 - Presence of intraocular lens (ICD-10) Hx of appendectomy ?Z90.49 - Acquired absence of other specified parts of digestive tract (ICD-10) Social History Smoking status: Former smoker Exam Narrative Exam Narrative: Gen.: Awake, alert, in no distress Head: Normocephalic, atraumatic ENT: Moist mucous membranes; No tenderness over the temples Respiratory: No respiratory distress, lungs clear bilaterally Cardio: Regular rate and rhythm Extremities: Moves extremities equally, no injuries noted Psych: Normal mood and affect Neuro: Patient unable to see fingers in front of her face on exam Skin: Warm, dry, intact Constitutional Vital Signs, click to edit/add: Last Vital Signs Temp 98.0 F 09/22/23 14:03 Pulse 107 H 09/22/23 15:47 Resp 18 09/22/23 15:47 BP 148/69 H 09/22/23 15:52 Pulse Ox 97 09/22/23 15:47 Course Vital Signs Vital signs: Vital Signs Temperature 98.0 F 09/22/23 14:03 Pulse Rate 105 H 09/22/23 14:03 Respiratory Rate 18 09/22/23 14:03 Blood Pressure 144/96 H 09/22/23 14:03 Pulse Oximetry 96 09/22/23 14:03 Temperature 98.0 F 09/22/23 14:03 Pulse Rate 107 H 09/22/23 15:47 Respiratory Rate 18 09/22/23 15:47 Blood Pressure 148/69 H 09/22/23 15:52 Pulse Oximetry 97 09/22/23 15:47 MDM - Eye Problem MDM Narrative Medical decision making narrative: CT angio of the head and neck show vertebral artery stenosis with no large vessel occlusions. Patient has no complaints of headache, other peripheral neurosymptoms in the emergency department and maintained stable vital signs. Her labs are unremarkable, she does have stable anemia in the ER. I discussed the case with the stroke interventionalist at [facility] in [place], Dr. Huffman who recommended the patient have a stroke workup with MRI and ophthalmology evaluation but she does not need to emergently be evaluated by an interventionalist or receive TPA. She was given 250 mg IV Solu-Medrol for elevated CRP and sed rates which may be consistent with a possible giant cell arteritis although the patient has no headache or temporal pain in the ER. Case discussed with Dr. Pan For the hospitalist service At [facility] who accepted the patient for transfer with probable neurology and ophthalmology consults. We were warned that this facility is on an extended wait time and the patient would not have a bed assignment today. Patient admitted to hospitalist, Dr. Hughes, at this facility for management until a bed at tertiary care is available. Patient is stable at this time. Medical Records Attestation: I reviewed the patient's medical records. Lab Data Attestation: I reviewed the patient's lab results. Labs: Lab Results 09/22/23 09/22/23 Range/Units 14:10 14:12 WBC 13.3 H (4.0-11.0) 10^3/uL RBC 2.97 L (4.20-5.40) 10^6/uL Hgb 8.4 L (12.0-16.0) g/dL Hct 26.9 L (36.0-48.0) % MCV 90.6 (81.0-99.0) fL MCH 28.3 (26.7-34.0) pg MCHC 31.2 (29.9-35.2) g/dL RDW 14.5 (11.0-15.0) % Plt Count 827 H (150-450) 10^3/uL MPV 8.2 L (9.5-13.5) fL Neut % (Auto) 77.7 H (43.0-75.0) % Lymph % (Auto) 12.6 L (20.5-60.0) % [place] % (Auto) 8.3 (1.7-12.0) % Eos % (Auto) 0.7 L (0.9-7.0) % Baso % (Auto) 0.2 (0.2-2.0) % Neut # (Auto) 10.3 H (1.4-6.5) 10^3/uL Lymph # (Auto) 1.7 (1.2-3.8) 10^3/uL [place] # (Auto) 1.1 H (0.3-0.8) 10^3/uL Eos # (Auto) 0.1 (0.0-0.7) 10^3/uL Baso # (Auto) 0.0 (0.0-0.1) 10^3/uL Abs Immat Gran (auto) 0.07 H (0.00-0.03) 10^3/uL Imm/Tot Granulo (auto) 0.5 (0.0-0.5) % ESR >130 H (<=30) mm/hr PT 10.9 (9.0-11.6) sec INR 1.03 Sodium 136 (136-145) mmol/L Potassium 3.6 (3.5-5.1) mmol/L Chloride 100 (98-107) mmol/L Carbon Dioxide 30.0 (21.0-32.0) mmol/L Anion Gap 9.6 BUN 14.0 (7.0-18.0) mg/dL Creatinine 0.66 (0.55-1.02) mg/dL Est GFR ( Amer) >60 (>=60) Est GFR (Non-Af Amer) >60 (>=60) BUN/Creatinine Ratio 21.2 Glucose 81 (74-106) mg/dL Calcium 8.8 (8.5-10.1) mg/dL Magnesium 2.2 (1.8-2.4) mg/dL Total Bilirubin 0.5 (0.2-1.0) mg/dL AST 17 (15-37) U/L ALT 24 (14-59) U/L Alkaline Phosphatase 281 H (46-116) U/L Troponin I High Sens 8.9 (4.0-51.3) pg/mL C-Reactive Protein 13.90 H (<=0.50) mg/dL Total Protein 7.4 (6.4-8.2) g/dL Albumin 2.1 L (3.4-5.0) g/dL Globulin 5.3 g/dL Albumin/Globulin Ratio 0.4 Urine Color Yellow (YELLOW) Urine Clarity Clear (CLEAR) Urine pH 6.5 (5.0-9.0) Ur Specific [place] 1.020 (1.005-1.025) Urine Protein Negative (NEG/TRACE) mg/dL Urine Glucose (UA) Negative (NEGATIVE) mg/dL Urine Ketones Trace A (NEGATIVE) mg/dL Urine Occult Blood Trace-i (NEGATIVE) Urine Nitrite Negative (NEGATIVE) Urine Bilirubin Negative (NEGATIVE) Urine Urobilinogen 4.0 A (0.2-1.0) EU/dL Ur Leukocyte Esterase Negative (NEGATIVE) Urine RBC 0-2 (0-2) #/HPF Urine WBC None seen (NONE SEEN) #/HPF Ur Squamous Epith Cells Few A (NONE/RARE) #/LPF Urine Crystals None seen (None Seen) #/HPF Urine Bacteria Trace A (NONE SEEN) #/HPF Urine Casts None seen (NONE SEEN) #/LPF Urine Mucus Moderate A (NONE SEEN) Ur Culture Indicated? No Imaging Data CT scan - head: Attestation: I have reviewed the pertinent imaging results. Radiologist's impression: ITS Impressions Head CTA 09/22/23 15:07 IMPRESSION: 1. No large vessel occlusion or aneurysm. 2. Irregular stenosis involving the high bilateral V2 and to a greater extent V3 and proximal V4 vertebral artery segments with relative lack of calcified and noncalcified atherosclerosis seen involving the neck and intracranial arterial vasculature suggesting this may relate to underlying dissections although no overt dissection flap is definitely seen. Direct comparison with priors would be of benefit if available to evaluate for interval change. 3. Normal variant anatomy involving intracranial arteries detailed above. Electronically authenticated by: BLAIRE NORMAN Date: 09/22/2023 15:44 Neck CTA 09/22/23 15:07 IMPRESSION: 1. No large vessel occlusion or aneurysm. 2. Irregular stenosis involving the high bilateral V2 and to a greater extent V3 and proximal V4 vertebral artery segments with relative lack of calcified and noncalcified atherosclerosis seen involving the neck and intracranial arterial vasculature suggesting this may relate to underlying dissections although no overt dissection flap is definitely seen. Direct comparison with priors would be of benefit if available to evaluate for interval change. 3. Normal variant anatomy involving intracranial arteries detailed above. Electronically authenticated by: BLAIRE NORMAN Date: 09/22/2023 15:44 ECG Data Attestation: I personally reviewed and interpreted this ECG as follows: (Sinus rhythm at a rate of 99, no acute ST elevation or ectopy. EKG reviewed by attending physician) Critical Care Time Critical Care Time Critical Care Time: Yes Total Critical Care Time: 35 Attestation: Patient evaluation for CVA, accepted in transfer for neurology evaluation Discharge Plan Discharge Chief Complaint: Eye Problems Patient Disposition: Admitted as Observation Time of Disposition Decision: 16:53 Prescriptions / Home Meds: No Action sulfamethoxazole-trimethoprim [Bactrim DS] 800-160 mg tablet 1 tab PO BID Qty: 10 0RF cyclobenzaprine 10 mg tablet 10 mg PO TID PRN (Reason: muscle spasm) Qty: 20 0RF ibuprofen 800 mg tablet 800 mg PO Q8H PRN (Reason: pain) Qty: 20 0RF Referrals: Physician,Non-Staff, MD [Primary Care Provider] - 1 week
[2023-09-22 14:35] LABS: Basophils Percent Auto 0.2 % (0.2-2.0); Eosinophils Absolute Auto 0.1 10^3/uL (0.0-0.7); Eosinophils Percent Auto 0.7 % (0.9-7.0); Hematocrit 26.9 % (36.0-48.0); Hemoglobin 8.4 g/dL (12.0-16.0); Immature Granulocytes Abs Auto 0.07 10^3/uL (0.00-0.03); Immature Granulocytes Pct Auto 0.5 % (0.0-0.5); Lymphocytes Absolute Auto 1.7 10^3/uL (1.2-3.8); Lymphocytes Percent Auto 12.6 % (20.5-60.0); Mean Corpuscular HGB Conc 31.2 g/dL (29.9-35.2); Mean Corpuscular Hemoglobin 28.3 pg (26.7-34.0); Mean Corpuscular Volume 90.6 fL (81.0-99.0); Mean Platelet Volume 8.2 fL (9.5-13.5); Monocytes Absolute Auto 1.1 10^3/uL (0.3-0.8); Monocytes Percent Auto 8.3 % (1.7-12.0); Neutrophils Absolute Auto 10.3 10^3/uL (1.4-6.5); Neutrophils Percent Auto 77.7 % (43.0-75.0); Platelet Count 827 10^3/uL (150-450); Red Blood Count 2.97 10^6/uL (4.20-5.40); Red Cell Distribution Width 14.5 % (11.0-15.0); White Blood Count 13.3 10^3/uL (4.0-11.0)
[2023-09-22 14:36] LABS: Bilirubin Urine NEGATIVE (NEGATIVE); Blood Urine TRACE-I (NEGATIVE); Clarity Urine CLEAR (CLEAR); Color Urine YELLOW (YELLOW); Glucose Urine UA NEGATIVE (NEGATIVE); Ketones Urine TRACE mg/dL (NEGATIVE); Leukocyte Esterase Urine NEGATIVE (NEGATIVE); Nitrite Urine NEGATIVE (NEGATIVE); Protein Urine NEGATIVE (NEG/TRACE); pH Urine 6.5 (5.0-9.0)
[2023-09-22 14:48] LABS: Urine Microscopic Indicated YES
[2023-09-22 14:50] LABS: Bacteria Urine TRACE #/HPF (NONE SEEN); Cast Seen? NONE SEEN #/LPF (NONE SEEN); Crystals Seen? None Seen #/HPF (None Seen); Mucus Urine MODERATE (NONE SEEN); RBC Urine 0-2 #/HPF (0-2); Squamous Epithelial Cell Urine FEW #/LPF (NONE/RARE); Urine Culture Indicated NO; WBC Urine NONE SEEN #/HPF (NONE SEEN)
[2023-09-22 14:51] LABS: Alanine Aminotransferase 24 U/L (14-59); Albumin Globulin Ratio 0.4; Albumin Level 2.1 g/dL (3.4-5.0); Alkaline Phosphatase 281 U/L (46-116); Anion Gap 9.6; Aspartate Amino Transferase 17 U/L (15-37); BUN Creatinine Ratio 21.2; Bilirubin Total 0.5 mg/dL (0.2-1.0); Calcium 8.8 mg/dL (8.5-10.1); Chloride 100 mmol/L (98-107); Estimated GFR (African America >60 (>=60); Estimated GFR (Non-African Ame >60 (>=60); Globulin 5.3 g/dL; Glucose 81 mg/dL (74-106); Potassium 3.6 mmol/L (3.5-5.1); Sodium 136 mmol/L (136-145); Total Protein 7.4 g/dL (6.4-8.2)
[2023-09-22 14:55] LABS: INR 1.03; Prothrombin Time 10.9 sec (9.0-11.6)
[2023-09-22 14:57] LABS: Erythrocyte Sedimentation Rate >130 mm/hr (<=30)
[2023-09-22 15:00] LABS: Magnesium 2.2 mg/dL (1.8-2.4); Troponin I High Sensitivity 8.9 pg/mL (4.0-51.3)
--- NOTE | 2023-09-22 15:07 | CT_ITS ---
The [address] [address] Patient Name: JOSE DALAL MRN: [id number] date: 1945 Sex: F Assigned Patient Location: ER Current Patient Location: Accession/Order Number: [id number] Exam Date: 09/22/2023 14:55 Report Date: 09/22/2023 15:44 At the request of: JOAQUIN TORRES Procedure: CT angio head EXAM: CT angio neck, CT angio head HISTORY: Visual loss COMPARISON: Noncontrast CT head 09/13/2023. TECHNIQUE: Axial postcontrast CTA imaging of the head and neck was performed with coronal and sagittal reformats. Maximum intensity projection and 3-D reformats were performed on a separate workstation. This CT exam was performed using one or more of the following dose reduction techniques: Automated exposure control, adjustment of the MA and/or kV according to patient size, or use of iterative reconstruction technique. FINDINGS: Aortic arch: Imaged portion shows no evidence of aneurysm. No significant stenosis of the major origins of the major arch vessels. Right carotid system: No evidence of significant (50% or greater) stenosis or occlusion. Left carotid system: No evidence of significant (50% or greater) stenosis or occlusion. Vertebral arteries: Codominant. No evidence of significant (50% or greater) stenosis or occlusion. Mild irregular stenosis involving the high right V2 and V3 vertebral artery segments. There is mild irregular stenosis involving the left knee 2 vertebral artery segment. Tortuous appearance of the V3 vertebral artery segments with moderate stenosis at the V3 and V4 junction and severe stenosis of the proximal V4 vertebral artery just proximal distal to the entrance to the skull base. No substantial atherosclerotic calcification is seen. Anterior circulation: No evidence of aneurysm, significant stenosis, or occlusion. Relatively hypoplastic left A2 anterior cerebral artery segment with prominent right A2 anterior cerebral artery segment partially supplying the left anterior cerebral artery vasculature at the level of a 3 arterial segments. Infundibular origins of the bilateral prominent posterior communicating arteries. Vertebrobasilar system: No evidence of aneurysm or occlusion. There is moderate to severe stenosis involving the right knee 3 V4 junction at the entrance to the skull base as well as moderate irregular stenosis involving the right higher V4 vertebral artery with the appearance somewhat suggestive of underlying dissection without overt dissection flap definitely seen. Short segment severe stenosis of the left proximal V4 vertebral artery segment. Underlying dissection of the V3 and V4 segment on the left is also a consideration. Less likely this could relate to atherosclerosis. Bilateral type posterior cerebral arteries. Venous sinuses: Grossly patent. Additional findings: Moderate degenerative change of the cervical spine with prominent facet arthropathy asymmetrically greater on the right. CT/CT angio head IMPRESSION: 1. No large vessel occlusion or aneurysm. 2. Irregular stenosis involving the high bilateral V2 and to a greater extent V3 and proximal V4 vertebral artery segments with relative lack of calcified and noncalcified atherosclerosis seen involving the neck and intracranial arterial vasculature suggesting this may relate to underlying dissections although no overt dissection flap is definitely seen. Direct comparison with priors would be of benefit if available to evaluate for interval change. 3. Normal variant anatomy involving intracranial arteries detailed above. Electronically authenticated by: BLAIRE NORMAN Date: 09/22/2023 15:44
--- NOTE | 2023-09-22 15:07 | CT_ITS ---
The [address] [address] Patient Name: JOSE DALAL MRN: [id number] date: 1945 Sex: F Assigned Patient Location: ER Current Patient Location: Accession/Order Number: [id number] Exam Date: 09/22/2023 14:55 Report Date: 09/22/2023 15:44 At the request of: JOAQUIN TORRES Procedure: CT angio neck EXAM: CT angio neck, CT angio head HISTORY: Visual loss COMPARISON: Noncontrast CT head 09/13/2023. TECHNIQUE: Axial postcontrast CTA imaging of the head and neck was performed with coronal and sagittal reformats. Maximum intensity projection and 3-D reformats were performed on a separate workstation. This CT exam was performed using one or more of the following dose reduction techniques: Automated exposure control, adjustment of the MA and/or kV according to patient size, or use of iterative reconstruction technique. FINDINGS: Aortic arch: Imaged portion shows no evidence of aneurysm. No significant stenosis of the major origins of the major arch vessels. Right carotid system: No evidence of significant (50% or greater) stenosis or occlusion. Left carotid system: No evidence of significant (50% or greater) stenosis or occlusion. Vertebral arteries: Codominant. No evidence of significant (50% or greater) stenosis or occlusion. Mild irregular stenosis involving the high right V2 and V3 vertebral artery segments. There is mild irregular stenosis involving the left knee 2 vertebral artery segment. Tortuous appearance of the V3 vertebral artery segments with moderate stenosis at the V3 and V4 junction and severe stenosis of the proximal V4 vertebral artery just proximal distal to the entrance to the skull base. No substantial atherosclerotic calcification is seen. Anterior circulation: No evidence of aneurysm, significant stenosis, or occlusion. Relatively hypoplastic left A2 anterior cerebral artery segment with prominent right A2 anterior cerebral artery segment partially supplying the left anterior cerebral artery vasculature at the level of a 3 arterial segments. Infundibular origins of the bilateral prominent posterior communicating arteries. Vertebrobasilar system: No evidence of aneurysm or occlusion. There is moderate to severe stenosis involving the right knee 3 V4 junction at the entrance to the skull base as well as moderate irregular stenosis involving the right higher V4 vertebral artery with the appearance somewhat suggestive of underlying dissection without overt dissection flap definitely seen. Short segment severe stenosis of the left proximal V4 vertebral artery segment. Underlying dissection of the V3 and V4 segment on the left is also a consideration. Less likely this could relate to atherosclerosis. Bilateral type posterior cerebral arteries. Venous sinuses: Grossly patent. Additional findings: Moderate degenerative change of the cervical spine with prominent facet arthropathy asymmetrically greater on the right. CT/CT angio neck IMPRESSION: 1. No large vessel occlusion or aneurysm. 2. Irregular stenosis involving the high bilateral V2 and to a greater extent V3 and proximal V4 vertebral artery segments with relative lack of calcified and noncalcified atherosclerosis seen involving the neck and intracranial arterial vasculature suggesting this may relate to underlying dissections although no overt dissection flap is definitely seen. Direct comparison with priors would be of benefit if available to evaluate for interval change. 3. Normal variant anatomy involving intracranial arteries detailed above. Electronically authenticated by: BLAIRE NORMAN Date: 09/22/2023 15:44
[2023-09-22] MEDS: METHYLPREDNISOLONE SOD SUCC/PF 250 MG in 0.9 % SODIUM CHLORIDE 50 ML 108 MG IV (15:39)
--- OUTSIDE RECORDS SUMMARY | 2023-09-22 17:55 | XMS_ITS | CCD ---
Author Name Unknown Address [address] [place] [address] Organization [facility] Care Team Providers Care Stove Tender Name Role Phone LEAH, DR PATO Perez [...] (1 source) Penicillins Drug allergy (disorder) The [facility] Repository Problems Active Problems Problem Classification [...] by: SHANTELL GARCIA Date: 2022-12-25 08:22 Normal [facility] XR KNEE RT 4V or >on [...] lateral and patellofemoral compartments where there is ndyi-ms-euad contact. 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 Electronically authenticated by: KARAN JENKINS Date: 2022-04-25 19:06 Normal [facility] Patient Educationon 09-10-19 Patient Education Nutrition [...] height. This can be done either in American (U.S.) or metric measurements. Note that charts are available to help you find your BMI quickly and easily without having to do these calculations yourself. To calculate your BMI in American (U.S.) measurements, your health care provider will: [...] problems. ? BMI can be measured using American measurements or metric measurements. ? To interpret [...] 04/22/2005 Document Revised: 07/24/2018 Document Reviewed: 06/24/2018 [employer] Patient Education ? 2020 [employer]. Obstetrics and Gynecology Overactive Bladder, Adult Overactive [...] A spina (more content not included)... Normal [facility] RAD - MISCon 09-10-2021 [facility] [id number] 0CD:127 Normal [facility] 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 [address] [place], [place] [id number]- Additional Instructions: Patient Education BMI for Adults [...] Protein Urine Dipstick: Negative (09/10/21 08:26:00) Specific [place] Urine Dipstick: 1.025 (09/10/21 08:26:00) Urine Appearance Urine Dipstick: Clear (09/10/21 08:26:00) Urine Color Urine Dipstick: Yellow (09/10/21 08:26:00) Urobilinogen Urine Dipstick: Normal 0.2-1 EU/dl (09/10/21 08:26:00) pH Urine Dipstick: 5 (09/10/21 08:26:00) [facility] Comment on above: Result Comment: Elec tronically Signed By: Gilbert GARCIA MD\.br\Date and Time Signed: 09/10/21 08:49 EST\.br\Electronically Co-Signed By: Aurora Hdz MA\.br\Date and Time Co-Signed: 09/10/21 08:46 EST Physician Orderon 09-07-2021 Physician Order [id number] 0CD:127 Normal [facility] Encounters Encounter Date Encounter Type Care Provider Facility Start: 03-24-2023 End: 03-25-2023 ambulatory Andrius Heidi Ottoitis Facility: [facility] Start: 03-10-2023 End: 03-11-2023 ambulatory Andyahairaus Heidi Ottoitis [facility]: [facility] Start: 03-03-2023 End: 03-04-2023 ambulatory Andrius Heidi Ottoitis Facility: [facility] Start: 02-17-2023 End: 02-18-2023 ambulatory Andrius Heidi Ottoitis Facility: [facility] Start: 02-03-2023 End: 02-04-2023 ambulatory Andrius Hedii Ottoitis [facility]: [facility] Start: 01-24-2023 End: 01-25-2023 ambulatory Andyahairaus Heidi Ottoitis [facility]: [facility] Start: 12-25-2022 End: 12-25-[address] PATO LYNN Facility:[facility] Start: 04-25-2022 End: 04-25-[address] CRISTOPHER BUCHANAN . Facility:[facility] Payers Date Payer Category Payer Medicare 1958 Medicare [id number] 1945 Unknown [id number] 2.16.84 [id number] 1945 Unknown [id number] 1945 Unknown [id number] 2.. [id number] 1945 Unknown [id number] 2. [id number] 1945 Unknown [id number] 2.16. [id number] 1945 Unknown [id number] 2.. [id number] 1945 Unknown [id number] 2. [id number] 1945 Unknown [id number] 2.16. [id number] Summary Purpose Family History No Family History Records FoundNo Family History Records FoundNo Family History Records Found Advance Directives No Advanced Directives Records FoundNo Advanced Directives Records FoundNo Advanced Directives Records Found Additional Source Comments INFORMATION SOURCE (unrecogn ized section and content) DATE CREATED AUTHOR 11/18/2021 [facility] DATE CREATED AUTHOR AUTHOR'S ORGANIZ ATION 01/31/2023 [facility] DATE CREATED AUTHOR AUTHOR'S ORGANIZ ATION 04/15/2023 [facility] FOR RECORDS PERTAINING TO PATIENTS WHO ARE [...] BE BASED ON THE PRIMARY CLINICAL RECORDS. [facility]. provides no warranty or guarantee of the accuracy or completeness of information in this document.
[2023-09-22] MEDS: LACTATED RINGER'S SOLUTION 1,000 ML 50 ML IV (18:17)
[2023-09-22] MEDS: ATORVASTATIN CALCIUM 40 MG TABLET 80 MG PO (19:21)
[2023-09-22] MEDS: PANTOPRAZOLE SODIUM 40 MG VIAL IV (19:22)
[2023-09-22] MEDS: ASPIRIN 81 MG TABLET.DR PO (19:22)
== END 2023-09-22 23:00 | disposition short-term general hospital (02) ==
LOC: ER 16:53 → ICU 17:52
PROVIDERS: Physician Assistant; Admitting Provider Family Medicine; Emergency Provider Emergency Medicine; Visit Provider Family Medicine
DX: H53.9 Unspecified visual disturbance (principal); K21.9 Gastro-esophageal reflux disease without esophagitis; G89.29 Other chronic pain; M54.2 Cervicalgia; M54.9 Dorsalgia, unspecified; Z87.442 Personal history of urinary calculi; Z90.49 Acquired absence of other specified parts of digestive tract; Z96.1 Presence of intraocular lens; Z98.51 Tubal ligation status; Z87.891 Personal history of nicotine dependence
CPT/HCPCS: 36415; 70496; 70498; 80053; 81001; 83735; 84484; 85025; 85610; 85652; 86140; 93005; 94761; 96365; 96366; 96375; 99285; G0378; J2930; Q9967

== ENCOUNTER 2023-10-30 08:43 | Outpatient (OUT) | payer MEDICARE, SELFPAY ==
--- OUTSIDE RECORDS SUMMARY | 2023-10-29 09:53 | XMS_ITS | CCD ---
Author Name Unknown Address [address] [place] [address] Organization [facility] Care Team Providers Care Gang Sawyer Name Role Phone LEAH, DR PATO Perez Admitting Unavailalonso LYNN, DR PATO Perez Consulting Unavailabl ron LYNN, DR PATO Perez Attending Unavailabl e JORGE, DR BECKHAM Primary Care Unavailable SHANTELL GARCIA Consulting Unavailable CHANEL ., DR NICHOLAS Attending Unavailable KARAN JENKINS Consulting Unavailable JORGE, DR BECKHAM Primary Care Unavailable CHANEL De Leon, DR NICHOLAS Admitting Unavailable LADI LOPEZ Consulting Unavailable Tai SENIOR, Naomy Gordon Attending Unavailable Giedraitis , Andvolodymyr Gordon Attending Unavailable Giedraitis , Andvolodymyr Gordon Attending Unavailable Giedraitis , Andrius Gordon Attending Unavailable Giedraitis , Andrius Gordon Attending Unavailable Giedraitis , Andvolodymyr Gordon Attending Unavailable John Patel DO Primary Care Provider TONO PAN Admitting Unavailable TONO PAN Attending Unavailable YOEL GAVIN Referring Unavailable JOHN PATEL Primary Care Unavailable MONTANA BARTLETT Consulting Unavailable ERA BYRNE Consulting Unavailable JOSE SHAW Consulting Unavailable GONZALES CARRILLO Consulting Unavailable MOUNA KURTZ Consulting Unavailable JT JASSO I Consulting Unavailable CARLITOS CARABALLO Referring Unavail able JOHN PATEL Primary Care Unavailable TREVIN LÓPEZ Referring Unavailable JOHN PATEL Primary Care Unavailable RICKIE STEWART Attending Unavailable JOHN PATEL Primary Care Unavailable Lesia HUANG-EARTHMOVING LABOURER, Giovanna Primary Care Provid er HOUSE, JOHN P Referring Unavailable HOUSE, JOHN P Primary Care Unavailable HOUSE, JOHN P Referring Unavailable HOUSE, JOHN P Primary Care Unavailable HOUSE, JOHN P Referring Unavailable HOUSE, JOHN P Primary Care Unavailable ALYSIAMOUNA Paul Attending Unavailable HOUSE, JOHN P Referring Unavailable GIOVANNA GRAF Primary Care Unavailable Allergies Allergy Classification Reported Allergen(s) Allergy Type Date of Onset Reaction(s) Facility (1 source) Penicillins Drug allergy (disorder) [facility] Repository (6 sources) Penicillin; Translations: [PENICILLIN] Drug Allergy Confusion, Fever [facility] Medications Current Medications Medication Drug Class(es) Dates Sig (Normalized) Sig (Original) acetaminophen 500 mg oral capsule (7 sources) Start: 10-16-2023 take 500 mg by mouth every six hours Acetaminophen Active 500 MG PO Every 6 hours October 16, 2023 12:00am Start: 09-23-2023 End: 09-26-2023 take 4 g by mouth every twenty-four hours as needed 650 mg, oral, 3 times daily PRN, mild pain - pain scale 1-3, moderate pain - pain scale 4-6, Temperature greater than 38.3 C, Starting on Fri09/23/23 at 0032, For 2 doses, [Warning: Total Acetaminophen not to exceed more than 4 grams (4000 mg) in 24 hours] take 1 tablet by irwin th every six hours as needed for pain acetaminophen (TYLENOL EXTRA STRENGTH) 500 mg tablet Take 1 tablet (500 mg total) by mouth every 6 (six) hours as needed for pain. 0 Active aspirin 81 mg delayed release oral tablet (6 sources) Platelet Aggregation Inhibitor, Nonsteroidal Anti-inflammatory Drug Start: 09-26-2023 End: 10-26-2023 take 1 tablet by mouth in the morning aspirin 81 mg Take 1 tablet (81 mg total) by mouth in the morning for 30 days. 30 tablet 0 09/26/2023 10/26/2023 Active predniSONE 20 mg oral tablet (7 sources) Start: 10-16-2023 take 60 mg by mouth once daily Prednisone Active 60 MG PO Daily October 16, 2023 12:00am Start: 09-27-2023 End: 10-27-2023 take 3 tablets by mouth once daily at breakfast predniSONE (DELTASONE) 20 mg tablet Take 3 tablets (60 mg total) by mouth daily with breakfast for 30 days. 90 tablet 0 09/27/2023 10/27/2023 Active Start: 09-26-2023 End: 09-26-2023 predniSONE (DELTASONE) table t 60 mg sulfamethoxazole 800 mg / trimethoprim 160 mg oral tablet (7 sources) Dihydrofolate Reductase Inhibitor Antibacterial, Sulfonamide Antimicrobial Start: 10-16-2023 take 1 tablet by mouth three times daily Sulfamethoxazole-Trimethoprim (Bactrim Ds) 800-160 mg tablet Active 1 TAB PO Three times daily October 16, 2023 12:00am Start: 09-29-2023 End: 10-29-2023 take 1 tablet by mouth three times weekly sulfamethoxazole-trimethoprim (BACTRIM D S) 800-160 mg per tablet Take 1 tablet by mouth 3 (three) times a week for 30 days. 12 tablet 0 09/29/2023 10/29/2023 Active Start: 09-26-2023 End: 09-26-2023 sulfamethoxazole-trimethopri m (BACTRIM DS) 800-160 mg tablet 1 tablet vitamin b12 1 mg oral capsule (7 sources) Vitamin B12 Start: 10-16-2023 take 1000 ug by mouth once daily Cyanocobalamin (Vitamin B-12) Active 1000 MCG PO Daily October 16, 2023 12:00am Start: 09-23-2023 End: 10-27-2023 take 1 tablet by mouth in the morning cyanocobalamin 1000 MCG tablet Indications: B12 deficiency Take 1 tablet (1,000 mcg total) by mouth in the morning for 30 days. 30 tablet 0 09/27/2023 10/27/2023 Active Completed/Discontinued Medications Medication Drug Class(es) Dates Sig (Normalized) Sig (Original) ciprofloxacin 500 mg oral tablet (1 source) Quinolone Antimicrobial Start: 06-24-2018 End: 07-01-2018 take 500 mg by mouth twice daily Ciprofloxacin Hcl Discontinued 500 MG PO Twice daily 14 June 23, 2018 11:00pm July 01, 2018 12:02am docusate sodium 50 mg / sennosides, fpc 8.6 mg oral tablet (1 source) Start: 09-23-2023 End: 09-26-2023 take 1 tablet by mouth every twelve hours as needed for constipation 1 tablet, oral, Every 12 hours PRN, constipation, Starting on Fri09/23/23 at 0032 0.4 ml enoxaparin sodium 100 mg/ml prefilled syringe (1 source) Low Molecular Weight Heparin Start: 09-23-2023 End: 09-26-2023 enoxaparin (LOVENOX) syringe 40 mg 1 ml fentaNYL 0.05 mg/ml injection (1 source) Opioid Agonist Start: 09-25-2023 End: 09-25-2023 fentaNYL (SUBLIMAZE) injection 50 mcg gadoteridoL (PROHANCE) injection 5.26 mmol 10.52 mL (1 source) Start: 09-24-2023 End: 09-24-2023 gadoteridoL (PROHANCE) injection 5.26 mmol 10.52 mL glucagon (rdna) 1 mg injection (1 source) Antihypoglycemic Agent Start: 09-23-2023 End: 09-26-2023 1 mg, intramuscular, As needed, low blood sugar, blood glucose less than 70 mg/dL and unconscious or NPO without IV access., Starting on Fri09/23/23 at 003, If conscious and not NPO, immediately follow with meal tray or high protein (7Grams) snack if tray not available. If NPO, initiate IV 5% Dextrose/Water at 100 mL/hr and contact prescriber for additional orders. If blood glucose is not greater than 70 mg/dL after initial treatment, repeat treatment. 150 ml glucose 50 mg/ml injection (3 sources) Start: 09-23-2023 End: 09-26-2023 15 g, oral, As needed, low blood sugar, blood glucose less than 70 mg/dL, Starting on Fri09/23/23 at 0032, If patient conscious and taking PO. If blood glucose is not greater than 70 mg/dL after initial treatment, repeat treatment. Start: 09-23-2023 End: 09-26-2023 25 mL, intravenous, As neede d, low blood sugar, blood glucose less than 70 mg/dL and unconscious or NPO with IV access, Starting on Fri09/23/23 at 0032, Push over 1-3 minutes STAT. If conscious and not NPO, immediately follow with meal tray or high protein (7 grams) snack if tray not available. If NPO, initiate 5% dextrose in water at 100 mL/hr and contact prescriber for additional orders. If blood glucose is not greater than 70 mg/dL after initial treatment, repeat treatment. VESICANT (RED) Warning: HYPERTONIC solution. Start: 09-23-2023 End: 09-26-2023 take 70 mg intravenously every hour 100 mL/hr, intravenous, Continuous PRN, blood glucose less than 70 mg/dL, Starting on Fri09/23/23 at 0032, Use immediately following dextrose 50% or glucagon treatment for patients who are unconscious or NPO. Contact prescriber for additional orders. If blood glucose is not greater than 70 mg/dL after initial treatment, repeat treatment. methylPREDNISolone sodium succinate (Solu-MEDROL) 1,000 mg in sodium chloride 0.9 % 50 mL IVPB (2 sources) Start: 09-24-2023 End: 09-26-2023 methylPREDNISolone sodium succinate (Solu-MEDROL) 1,000 mg in sodium chloride 0.9 % 50 mL IVPB Start: 09-23-2023 End: 09-23-2023 methylPREDNISolone sodium cassidy ccinate (Solu-MEDROL) 1,000 mg in sodium chloride 0.9 % 50 mL IVPB 2 ml ondansetron 2 mg/ml injection (1 source) Serotonin-3 Receptor Antagonist Start: 09-23-2023 End: 09-26-2023 take 4 mg intravenously every eight hours as needed for nausea and vomiting 4 mg, intravenous, Every 8 hours PRN, nausea, vomiting, Starting on Fri09/23/23 at 0032, Administer over 2-5 minutes. oxybutynin chloride 5 mg oral tablet (1 source) Cholinergic Muscarinic Antagonist Start: 06-24-2018 End: 10-16-2023 take 5 mg by mouth twice daily Oxybutynin Chloride Discontinued 5 MG PO Twice daily June 23, 2018 11:00pm October 16, 2023 11:13am 125 ml sodium chloride 9 mg/ml prefilled syringe (5 sources) Start: 09-23-2023 End: 09-26-2023 3 mL, intravenous, Every 12 hours scheduled, First dose on Fri09/23/23 at 0045 Start: 09-23-2023 End: 09-26-2023 sodium chloride 0.9 % flush 10 mL Start: 09-23-2023 End: 09-26-2023 take 20 mL intravenously every hour as needed 20 mL/hr, intravenous, Continuous PRN, to maintain patency of lines, Starting on Fri09/23/23 at 0032 Start: 09-23-2023 End: 09-26-2023 take 25 mL intravenously every hour as needed 25 mL, intravenous, at 100 mL/hr, Administer over 15 Minutes, As needed, line care, line care after IVPB administration, Starting on Fri09/23/23 at 0032 Problems Active Problems Problem Classification Problem Date Documented Date Episodic/Chronic Blindness and vision defects (2 sources) Bilateral visual impairment; 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, both eyes] 10-16-2023 Chronic Blindness and vision defects (7 sources) Blurring of visual image; Translations: [Other visual disturbances] Onset: 09-23-2023 09-26-2023 Episodic Calculus of urinary tract (1 source) Personal history of urinary calculi; Translations: [PERSONAL HISTORY OF URINARY CALCULI] Onset: 12-26-2022 Episodic Esophageal disorders (2 sources) Gastroesophageal reflux disease; Translations: [Gastro-esophageal reflux disease without esophagitis] 10-16-2023 Chronic Neoplasms of unspecified nature or uncertain behavior (1 source) Thrombocytosis; Translations: [Thrombocytosis] 09-26-2023 Episodic Nutritional deficiencies (2 sources) Cobalamin deficiency; Translations: [Deficiency of other specified B group vitamins] Onset: 09-23-2023 09-23-2023 Episodic Other aftercare (1 source) Post-discharge follow-up; Translations: [Encounter for follow-up examination after completed treatment for conditions other than malignant neoplasm] 10-16-2023 Episodic Other aftercare (1 source) Encounter for follow-up examination after completed treatment for conditions other than malignant neoplasm; Translations: [Other follow-up examination] 10-16-2023 Episodic Other connective tissue disease (5 sources) Neurological symptom; Translations: [Unspecified symptoms and signs involving the nervous system] Onset: 09-23-2023 09-23-2023 Episodic Other connective tissue disease (1 source) Unspecified symptoms and signs involving the nervous system; Translations: [Unspecified symptoms and signs involving the nervous system] Onset: 09-23-2023 Episodic Residual codes; unclassified (1 source) Pain, unspecified; Translations: [Pain, unspecified] Onset: 09-24-2023 Episodic Spondylosis; intervertebral disc disorders; other back problems (1 source) Spondylosis without myelopathy or radiculopathy, cervical region; Translations: [SPONDYLS W/O MYELO-/RADICULOP CERV] Onset: 12-26-2022 Chronic Spondylosis; intervertebral disc disorders; other back problems (4 sources) Dorsalgia, unspecified; Translations: [Spinal stenosis, cervical region] Onset: 12-25-2022 Episodic Systemic lupus erythematosus and connective tissue disorders (7 sources) Temporal arteritis; Translations: [Other giant cell arteritis] Onset: 09-23-2023 09-26-2023 Chronic Unclassified (1 source) Thrombocytosis, unspecified; Translations: [Thrombocytosis, unspecified] Onset: 09-23-2023 Unclassified (1 source) CVA symptoms Onset: 09-23-2023 Past or Other Problems Problem Classification Problem Date Documented Da te Episodic/Chronic E Codes: Fall (1 source) Fall on same level from slipping, tripping and stumbling without subsequent striking against object, initial encounter; Translations: [FALL SAME LVL SLIP NO STRK OBJ INIT] Onset: 04-26-2022 Episodic Mood disorders (4 sources) Mood disorders Onset: 09-23-2023 09-23-2023 Other non-traumatic joint disorders (3 sources) Pain in right knee; Translations: [PAIN IN RIGHT KNEE] Onset: 04-25-2022 Episodic Sprains and strains (1 source) Sprain of unspecified site of right knee, initial encounter; Translations: [SPRAIN UNS SITE RT KNEE INITIAL] Onset: 04-26-2022 Episodic Results Test Name Value Interpretation Reference Range Facility Telephoneon 10-01-2023 Telephone [id number] Carlyle David 1945 F Date Provider Department Center 10/01/2023 [facility] RHEUM UTCF No family history on file Normal [facility] BASIC METABOLIC PANLon 09-26 Anion gap [Moles/Vol] 8 mmol/L Normal 5-15 [facility] Comment on above: Performed By: #### C BCA, CMP, 1988-5, FEPR, 2276-4, 2284-8, 13867-3, 2132-9, 73617-1, 93914-5, 5130-0, 80916-5, 24074-6, 82019-2, 3357-1, 8092-9, 44460-3, 06420-0, 23796-3, 92457-6, 95865-4 #### [facility] ([id number]) [address], [address] [place] [address] Calcium [Mass/Vol] 7.9 mg/dL Low 8.5-10.5 [facility] Comment on above: Performed By: #### C BCA, CMP, 1987-12, FEPR, 2276-4, 2284-8, 75773-4, 2132-9, 57482-9, 06029-4, 5130-0, 14620-4, 96582-8, 83341-0, 3357-1, 8092-9, 12488-0, 46513-9, 76031-5, 44774-9, 40447-7 #### [facility] ([id number]) [address], [address] [place] [address] Chloride [Moles/Vol] 103 mmol/L Normal 98-109 [facility] Comment on above: Performed By: #### C BCA, CMP, 1987-12, FEPR, 2276-4, 2284-8, 64640-1, 2131-9, 52172-6, 87620-9, 5130-0, 00113-8, 14932-2, 14589-3, 3357-1, 8092-9, 45139-4, 27959-5, 97755-4, 75234-7, 37288-7 #### [facility] ([id number]) [address], [address] [place] [address] CO2 [Moles/Vol] 30 mmol/L Normal 22-32 [facility] Comment on above: Performed By: #### C BCA, CMP, 1987-12, FEPR, 227-4, 2284-8, 23636-1, 2132-9, 87792-8, 14515-1, 5130-0, 23817-7, 51610-5, 34128-9, 3357-1, 8092-9, 86154-4, 91875-4, 22750-0, 01380-5, 89833-7 #### [facility] ([id number]) [facility], [address] [place] [address] Creatinine [Mass/Vol] 0.65 mg/dL Normal 0.40-1.00 [facility] Comment on above: Result Comment: METH OD TRACEABLE TO IDMS STANDARD Performed By: #### C SHARATH, CMP, 1987-12, FEPR, 2276-4, 2284-8, 61427-6, 2132-9, 80584-3, 04413-6, 5130-0, 12948-1, 69600-7, 27054-0, 3357-1, 8092-9, 07164-3, 53541-8, 57947-7, 76228-3, 16246-4 #### [facility] ([id number]) [address] [place] [address], [address] [place] [address] eGFR (CKD-EPI) NON-RACE DEPENDENT >90 Normal >59 [facility] Comment on above: Result Comment: Reported eGFR is based on the CKD-EPI 2020 equation that does not use a race coefficient. Performed By: #### C BCA, CMP, 1987-12, FEPR, 2276-4, 2284-8, 34669-2, 2132-9, 76938-0, 27655-5, 5130-0, 03843-3, 77973-6, 21985-2, 3357-1, 8092-9, 80982-6, 15400-7, 50830-1, 48344-0, 30939-5 #### [facility] ([id number]) [address] [facility], [address] [place] [address] Glucose [Mass/Vol] 79 mg/dL Normal 65-99 [facility] Comment on above: Performed By: #### C BCA, CMP, 1987-12, FEPR, 2276-4, 2284-8, 16527-0, 2132-9, 57261-5, 17710-1, 5130-0, 79230-8, 69999-1, 81323-4, 3357-1, 8092-9, 70936-0, 08481-8, 87408-7, 17567-9, 57290-0 #### [facility] ([id number]) [address] [facility], [address] [place] [address] Potassium [Moles/Vol] 3.9 mmol/L Normal 3.5-5.0 [facility] Comment on above: Performed By: #### C BCA, CMP, 1987-12, FEPR, 2276-4, 2284-8, 50694-6, 2132-9, 64885-0, 53917-9, 5130-0, 66948-3, 77190-0, 54939-7, 3357-1, 8092-9, 92523-8, 99691-4, 09777-3, 28790-3, 38532-4 #### [facility] ([id number]) [address] [facility], [address] [place] [address] Sodium [Moles/Vol] 141 mmol/L Normal 134-146 [facility] Comment on above: Performed By: #### C BCA, CMP, 1987-12, FEPR, 2276-4, 2284-8, 96225-9, 2132-9, 42232-8, 94076-9, 5130-0, 22103-1, 12001-5, 21733-5, 3357-1, 8092-9, 16225-5, 93939-6, 12200-3, 67591-3, 33409-1 #### [facility] ([id number]) [address] [facility], [address] [place] [address] Urea nitrogen [Mass/Vol] 26 mg/dL Normal 5-27 [facility] Comment on above: Performed By: #### C BCA, CMP, 1988-5, FEPR, 2276-4, 2284-8, 17909-7, 2132-9, 59663-1, 87885-3, 5130-0, 53508-4, 48828-5, 30738-5, 3357-1, 8092-9, 58254-0, 91759-8, 42166-0, 00777-0, 50754-8 #### [facility] ([id number]) [address] [facility], [address] [place] [address] Basic Metabolic Panelon Anion gap [Moles/Vol] 8 mmol/L 5 - 15 mmol/L [facility] Calcium [Mass/Vol] 7.9 mg/dL Low 8.5 - 10. 5 mg/dL [facility] Chloride [Moles/Vol] 103 mmol/L 98 - 10 9 mmol/L [facility] CO2 [Moles/Vol] 30 mmol/L 22 - 32 mmol/L [facility] Creatinine [Mass/Vol] 0.65 mg/dL 0.40 - 1.00 mg/dL [facility] Comment on above: METHOD TRACEABLE TO IDMT STANDARD eGFR (CKD-EPI)non-race dependent - PINF [facility] Comment on above: Reported eGFR is based on the CKD-EPI 2020 equation that does not use a race coefficient. Glucose [Mass/Vol] 79 mg/dL 65 - 99 mg/dL [facility] Interpretation and review of laboratory results Abnormal [facility] Potassium [Moles/Vol] 3.9 mmol/L 3.5 - 5.0 mmol/L [facility] Sodium [Moles/Vol] 141 mmol/L 134 - 146 mmol/L [facility] Urea nitrogen [Mass/Vol] 26 mg/dL 5 - 27 mg/d L [facility] CBC AND AUTO DIFFon 09-26-19 24 ABSOLUTE BASOPHIL 0.1 X10E9/L Normal 0.0-0.2 [facility] Comment on above: Performed By: #### C BCA, CMP, 1987-12, FEPR, 2276-4, 2284-8, 49070-2, 2132-9, 56102-1, 88979-2, 5130-0, 61442-0, 11496-0, 59838-5, 3357-1, 8092-9, 39360-3, 62993-0, 92046-2, 93580-3, 17661-9 #### [facility] ([id number]) [address] [facility], [address] [place] [address] ABSOLUTE NEUTROPHIL 7.1 X10E9/L High 1.5-6.6 [facility] Comment on above: Performed By: #### C BCA, [facility], 1987-12, FEPR, 2276-4, 2284-8, 41889-8, 2132-9, 16884-9, 57456-2, 5130-0, 32653-0, 13125-9, 31443-5, 3357-1, 8092-9, 97108-6, 35230-1, 60982-8, 40353-0, 37147-9 #### [facility] ([id number]) [address] [facility], [address] [place] [address] Basophils/100 WBC (Bld) 0.8 % Normal P [facility] Comment on above: Performed By: #### C BCA, CMP, 1987-12, FEPR, 227-4, 2284-8, 72718-0, 2132-9, 34257-2, 69168-1, 5130-0, 67689-9, 36769-5, 87574-0, 3357-1, 8092-9, 76169-0, 99381-3, 09317-8, 32375-7, 34649-5 #### [facility] ([id number]) [address] [facility], [address] [place] [address] Eosinophils (Bld) [#/Vol] 0.0 10*3/uL Normal 0.0-0.4 [facility] Comment on above: Performed By: #### C SHARATH, CMP, 1987-12, FEPR, 2276-4, 2284-8, 04761-0, 2132-9, 29862-8, 28775-3, 5130-0, 46053-6, 74647-8, 01468-0, 3357-1, 8092-9, 69011-7, 81495-2, 61058-6, 46306-4, 79146-6 #### [facility] ([id number]) [address] [facility], [address] [place] [address] Eosinophils/100 WBC (Bld) 0.0 % Normal [facility] Comment on above: Performed By: #### C SHARATH, CMP, 1987-12, FEPR, 2275-4, 2284-8, 36815-5, 2132-9, 67343-4, 76332-6, 5130-0, 65317-7, 12310-8, 79610-1, 3357-1, 8092-9, 68752-2, 07120-0, 53211-4, 30270-9, 66091-8 #### [facility] ([id number]) [facility], [address] [place] [address] Erythrocyte distribution width (RBC) [Ratio] 14.4 % Normal 11.5-15.0 [facility] Comment on above: Performed By: #### C SHARATH, CMP, 1987-12, FEPR, 227-4, 2284-8, 26889-0, 2132-9, 96817-4, 44942-1, 5130-0, 87130-9, 07122-3, 19546-8, 3357-1, 8092-9, 74155-2, 70561-5, 26642-7, 17000-7, 53655-8 #### [facility] ([id number]) [address] [facility], [address] [place] [address] Hematocrit (Bld) [Volume fraction] 24.8 % Low 35-47 [facility] Comment on above: Performed By: #### C SHARATH, CMP, 1987-, FEPR, 2276-4, 2284-8, 37202-7, 2132-9, 13211-1, 90321-7, 5130-0, 01645-7, 54076-6, 67305-4, 3357-1, 8092-9, 83885-5, 75495-8, 59050-0, 18457-6, 40954-4 #### [facility] ([id number]) [address], [address] [place] [address] Hemoglobin (Bld) [Mass/Vol] 8.2 g/dL Low 11.7-15.5 [facility] Comment on above: Performed By: #### C SHARATH, CMP, 1987-12, FEPR, 2275-4, 2284-8, 14333-8, 2132-9, 77800-8, 32090-8, 5130-0, 57719-0, 79066-9, 66381-6, 3357-1, 8092-9, 29914-4, 63580-7, 84386-1, 72669-6, 25595-0 #### [facility] ([id number]) [address], [address] [place] [address] Lymphocytes (Bld) [#/Vol] 2.4 10*3/uL Normal 1.0-3.5 [facility] Comment on above: Performed By: #### C BCA, CMP, 1987-12, FEPR, 227-4, 2284-8, 86504-3, 2132-9, 67480-8, 72298-8, 5130-0, 61345-2, 79469-9, 65438-4, 3357-1, 8092-9, 60479-1, 58131-3, 72212-5, 78772-8, 73086-5 #### [facility] ([id number]) [address], [address] [place] [address] Lymphocytes/100 WBC (Bld) 22.6 % Normal [facility] Comment on above: Performed By: #### C SHARATH, CMP, 1987-12, FEPR, 2276-4, 2284-8, 91057-6, 2132-9, 66599-6, 99006-9, 5130-0, 32477-1, 46524-8, 24075-4, 3357-1, 8092-9, 86052-6, 15273-4, 34423-4, 18781-4, 16154-9 #### [facility] ([id number]) [address], [address] [place] [address] MCH (RBC) [Entitic mass] 28.5 pg Normal 27-34 [facility] Comment on above: Performed By: #### C SHARATH, CMP, 1987-12, FEPR, 227-4, 2284-8, 98762-1, 2132-9, 62958-4, 98170-6, 5130-0, 43801-4, 63636-8, 88858-9, 3357-1, 8092-9, 98678-8, 74407-3, 29355-9, 82179-1, 81503-0 #### [facility] ([id number]) [address], [address] [place] [address] MCHC (RBC) [Mass/Vol] 33.1 g/dL Normal 32-36 [facility] Comment on above: Performed By: #### C BCA, CMP, 1987-12, FEPR, 2276-4, 2284-8, 31296-5, 2132-9, 37179-6, 27321-0, 5130-0, 76258-7, 00200-0, 23902-9, 3357-1, 8092-9, 76103-6, 80497-1, 35447-7, 83114-5, 18691-0 #### [facility] ([id number]) [address], [address] [place] [address] MCV (RBC) [Entitic vol] 86 fL Normal 80-100 P [facility] Comment on above: Performed By: #### C BCA, CMP, 1987-12, FEPR, 2276-4, 2284-8, 51923-1, 2132-9, 73073-4, 90316-0, 5130-0, 67051-8, 80278-2, 07863-1, 3357-1, 8092-9, 97218-8, 30557-9, 70694-6, 55824-8, 04894-1 #### [facility] ([id number]) [address] [facility], [address] [place] [address] Monocytes (Bld) [#/Vol] 1.0 10*3/uL High 0-0.9 [facility] Comment on above: Performed By: #### C BCA, CMP, 1987-12, FEPR, 227-4, 2284-8, 74822-8, 2132-9, 38946-4, 66233-1, 5130-0, 95185-0, 41010-7, 62765-2, 3357-1, 8092-9, 63239-5, 01791-3, 97058-2, 00629-0, 73376-7 #### [facility] ([id number]) [address], [address] [address] [place] [address] Monocytes/100 WBC (Bld) 9.0 % Normal P [facility] Comment on above: Performed By: #### C BCA, CMP, 1987-12, FEPR, 2276-4, 2284-8, 12422-6, 2132-9, 41296-4, 35585-8, 5130-0, 69934-7, 47613-8, 32908-5, 3357-1, 8092-9, 57018-8, 57673-1, 04871-6, 53293-7, 44375-7 #### [facility] ([id number]) [address], [address] [place] [address] Neutrophils/100 WBC (Bld) 67.6 % Normal [facility] Comment on above: Performed By: #### C BCA, CMP, 1987-12, FEPR, 2276-4, 2284-8, 79804-9, 2132-9, 96081-8, 12475-6, 5130-0, 43059-0, 67648-3, 97279-0, 3357-1, 8092-9, 33569-5, 26668-9, 17280-9, 33878-9, 33666-0 #### [facility] ([id number]) [address], [address] [place] [address] Platelet mean volume (Bld) [Entitic vol] 6.4 fL Low 7-12 [facility] Comment on above: Performed By: #### C BCA, CMP, 1987-12, FEPR, 2275-4, 2284-8, 32622-3, 2132-9, 55496-3, 93069-9, 5130-0, 64289-3, 40274-4, 58592-4, 3357-1, 8092-9, 02419-4, 72494-2, 96577-3, 20250-6, 30868-2 #### [facility] ([id number]) [address], [address] [place] [address] Platelets (Bld) [#/Vol] 686 10*3/uL High 150-450 [facility] Comment on above: Performed By: #### C BCA, CMP, 1987-12, FEPR, 2276-4, 2284-8, 42610-2, 2132-9, 11944-6, 01105-3, 5130-0, 65027-7, 76497-8, 91324-8, 3357-1, 8092-9, 60846-3, 94259-0, 42914-4, 13649-1, 16738-4 #### [facility] ([id number]) [address] [facility], [address] [place] [address] RBC COUNT 2.88 X10E12/L Low 3.80-5.20 [facility] Comment on above: Performed By: #### C BCA, CMP, 1987-, FEPR, 2276-4, 2284-8, 20827-9, 2132-9, 78505-4, 64820-5, 5130-0, 65276-2, 74214-1, 48882-5, 3357-1, 8092-9, 17893-2, 46690-8, 34368-4, 97120-5, 18663-9 #### [facility] ([id number]) [address] [facility], [address] [address] WBC (Bld) [#/Vol] 10.5 10*3/uL Normal 4.0-11.0 [facility] Comment on above: Performed By: #### C BCA, CMP, 1987-, FEPR, 2276-4, 2284-8, 78880-6, 2132-9, 48060-2, 22287-7, 5130-0, 26430-5, 34383-8, 27906-2, 3357-1, 8092-9, 26471-3, 17992-0, 86501-5, 68201-6, 73207-9 #### [facility] ([id number]) [address] [facility], [address] [place] [address] CBC auto differentialon 02-0 -2023 Basophils (Bld) [#/Vol] 0.1 10*3/uL [facility] Basophils/100 WBC (Bld) 0.8 % P [facility] Eosinophils (Bld) [#/Vol] 0.0 10*3/uL [facility] Eosinophils/100 WBC (Bld) 0.0 % [facility] Erythrocyte distribution width (RBC) [Ratio] 14.4 % 11.5 - 15.0 % [facility] Hematocrit (Bld) [Volume fraction] 24.8 % Low 35 - 47 % [facility] Hemoglobin (Bld) [Mass/Vol] 8.2 g/dL Low 11.7 - 15.5 g/dL [facility] Interpretation and review of laboratory results Abnormal [facility] Lymphocytes (Bld) [#/Vol] 2.4 10*3/uL [facility] Lymphocytes/100 WBC (Bld) 22.6 % [facility] MCH (RBC) [Entitic mass] 28.5 pg 27 - 34 pg [facility] MCHC (RBC) [Mass/Vol] 33.1 g/dL 32 - 36 g/dL P [facility] MCV (RBC) [Entitic vol] 86 fL 80 - 100 fL [facility] Monocytes (Bld) [#/Vol] 1.0 10*3/uL High [facility] Monocytes/100 WBC (Bld) 9.0 % P [facility] Neutrophils (Bld) [#/Vol] 7.1 10*3/uL High [facility] Neutrophils/100 WBC (Bld) 67.6 % [facility] Platelet mean volume (Bld) [Entitic vol] 6.4 fL Low 7 - 12 fL [facility] Platelets (Bld) [#/Vol] 686 10*3/uL High [facility] RBC (Bld) [#/Vol] 2.88 10*6/uL Low [facility] WBC corrected for nucl RBC Auto (Bld) [#/Vol] 10.5 [facility] Clinical Pathology Blood Sme ar Review Clinicalon 09-26-2023 Pathologist review Pathologist comment (Bld) [Interp] NOTE [facility] Comment on above: [facility] [address] [place] [address] Clinical Pathology Report Patient Name:JOSE DAVID:1945 (Age: 78)Gender:FTaken:4Reported:09/26/2023hysician(s):Olga Pan M.D. ([phone])Copy To: Rec. #:[id number]: #[id number] Final Pathologic Diagnosis Peripheral blood smear: Neutrophilic leukocytosis with lymphocytopenia.Thrombocytosis with moderate normocytic anemia. See comment. Comment Normocytic anemia can be secondary to blood loss, autoimmune disease, chronic disease, etc. The above findings are consistent with thrombocytosis and neutrophilia. Further correlation is suggested for definitive diagnosis (reactive versus primary thrombocytosis): Thrombopoietin level, acute phase reactant such as CRP, ESR, fibrinogen levels etc. JAK2 mutation and other molecular test might be helpful to rule out primary thrombocytosis. Clinical correlation is recommended. Report Electronically Signed Out hn/09/26/2023Og Martinez M.D. Interpretation performed at [facility], [address] [place] [address], License number: [id number]. Clinical History R29.9. BLOOD SMEAR EVALUATION CBC (09/23/2023 0818): WBC = 12.1 X10E9/L; HGB = 9.1 g/dL; HCT = 27.8%; MCV = 85 fL; PLT = 924 X10E9/L OTHER LAB DATA: Noncontributory. BLOOD SMEAR: Leukocytes: Neutrophilic leukocytosis with cytotoxic changes and lymphocytopenia. Erythrocytes: Moderate normocytic normochromic anemia. Platelets: Thrombocytosis. Specimen(s) Received Blood Smear Review Fee Codes(s): 1; 08557 JAK2 V617F mutationon 2023 JAK2 gene p.Ntt110Pws Molgen Ql (Bld/Tiss) SEE COMMENTS 09/26/2023 10:21 AM [facility] Comment on above: NOTE Test Result Flag Unit RefValue ----- JAK2 V617F Mutation Detection, B JAK2 Result see interpretation JAK2 V617F Mutation Detection, B See Note Peripheral blood, JAK2 V617F mutation analysis: Negative for JAK2 V617F. A negative [id number] test result does not exclude the possibility of a myeloproliferative neoplasm (MPN). If clinical suspicion is high for primary myelofibrosis (PMF) or essential thrombocythemia (ET), consider additional testing for CALR with reflex to MPL (test ID: MPNCM). If clinical suspicion is high for polycythemia vera, the test JAK2 Exon 12 and Other Non-V617F Mutational Detection (test ID: JAKXB or JAKXM) could be considered. Clinicopathologic correlation is recommended for a definitive diagnosis. Signing Pathologist: Emanuel Longoria M.D. ADDITIONAL INFORMATION Method summary - JAK2 V617F analysis: Quantitative, allele-specific polymerase chain reaction (PCR) assay was performed using extracted genomic DNA to evaluate for the point mutation causing JAK2 V617F. The analytic sensitivity of this assay has been determined at 0.06% (see [facility] Interpretive Handbook for method details). This test was developed and its performance characteristics determined by [facility] in a manner consistent with CLIA requirements. This test has not been cleared or approved by the U.S. Food and Drug Administration. Test Performed by: [place] [address] Bundle Breaker: Thierry Duran M.D. Ph.D.; CLIA# [id number] JAK2 gene p.Fyl076Uxa Molgen Ql (Bld/Tiss)on 09-26-2023 [facility] Pathologist review Pathologi st comment (Bld) [Interp]on 09-26-2023 [facility] Surgical Pathologyon 024 [facility] [address] [place] [address] Surgical Pathology Consultation Patient Name:JOSE DAVID:1945 (Age: 78)Gender:FTaken:4Reported:09/26/2023 Physician(s):Kristel Reid MD ([phone])Copy To: Rec. #:[id number]: #[id number] Final Pathologic Diagnosis 1. 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 See comment. 2. 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 See comment. Comment: Sections of both parts reveal small caliber artery which shows transmural moderately dense chronic fibroinflammatory reaction with histiocytes, lymphocytes and focal eosinophils. Occasional multinucleated foreign body giant cells are also noted. There is intimal hyperplasia and subtotal luminal obliteration. The elastic lamina is fragmented. 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 Clinical pathologic correlation is suggested. Report Electronically Signed Out [facility]/09/26/2023José Luis Pederson MD Interpretation performed at [facility], [address] [place] [address], License number: [id number]. Clinical History Temporal arteries. Gross Description 1. Received in formalin labeled FRANKIE, left temporal artery biopsy is a segment of vasculature, 2 x 0.3 cm. The specimen is sectioned to reveal a pinpoint lumen. Are 3 segments of vasculature ranging from 0.5 cm to 1.2 cm in length by 0.2 cm in diameter. The specimen is submitted entirely in a single cassette. (1,ns,A10-7346-4, m1) . 2. Received in formalin labeled FRANKIE, right temporal artery biopsy are 3 segments of vasculature ranging from 0.5 cm to 1.2 cm in length by 0.2 cm in diameter. The segments are sectioned to reveal pinpoint lumens. The specimen are submitted entirely in cassettes A-B. (2,ns,[id number], m1) . /4RG Specimen(s) Received 1: Left temporal artery biopsy 2: Right temporal artery biopsy Fee Codes(s): 1; 27264, 80661 2; 28718, 40452 [facility] BCR/ABL by PCR w/ Reflexon 0 09-25-2023 Narrative diagnostic report Molgen Yaw (Bld/Tiss) [Interp] SEE COMMENTS 09/25/2023 04:24 PM [facility] Comment on above: NOTE Test Result Flag Unit RefValue ----- BCR/ABL1 Reflex, Qual/Quant Specimen Type EDTA WHOLE BLOOD BCR/ABL1 Reflex Result see interpretation Interpretation See Note Peripheral blood, BCR/ABL1 mRNA analysis, qualitative: Negative. No BCR/ABL1 mRNA transcripts were detected. Method summary: The presence or absence of BCR/ABL1 mRNA transcripts was evaluated using a qualitative, reverse quantitative researcher PCR-based assay. The assay detects nearly all published and theoretical BCR/ABL1 fusion forms including the common e13/e14-a2 (p210) and e1-a2 (p190) transcripts, as well as other rarer variants (e.g. e19-a2 (p230), e13/e14-a3, e1-a3, etc.). The limit of detection for this assay is 0.1%. Please contact the lab at [phone] with questions or if additional testing is required. See [employer] Test Catalog for additional method details. Signing Pathologist: Ammon Titus M.D. (Jane), Ph.D. ADDITIONAL INFORMATION This test was developed and its performance characteristics determined by [facility] in a manner consistent with CLIA requirements. This test has not been cleared or approved by the U.S. Food and Drug Administration. Test Performed by: [facility] - [address] [address] Bundle Breaker: Thierry Duran M.D. Ph.D.; CLIA# [id number] Narrative diagnostic report Martha Yaw (Bld/Tiss) [Interp]on 09-25-2023 [facility] Surgical Pathologyon Surgical Pathology Normal [facility] Comment on above: Result Comment: [facility] [address] [place] [address] Surgical Pathology Consultation ADDENDUM AK Patient Name:JOSE DAVID:1945 (Age: 78)Gender:FTaken:4Reported:4Physician(s):Kristel Reid MD ([phone])Copy To: Rec. #:[id number]: #[id number] Final Pathologic Diagnosis 1. 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 See comment. 2. 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 See comment. Comment: Sections of both parts reveal small caliber artery which shows transmural moderately dense chronic fibroinflammatory reaction with histiocytes, lymphocytes and focal eosinophils. Occasional multinucleated foreign body giant cells are also noted. There is intimal hyperplasia and subtotal luminal obliteration. The elastic lamina is fragmented. 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 Clinical pathologic correlation is suggested. Report Electronically Signed Out wak/09/26/2023José Luis Pederson MD Addendum ([facility]) Date Reported: 09/29/2023 In both parts of the specimen, and elastic special stain (with appropriate controls) demonstrates fragmentation and loss of the internal elastic lamina. Electronically Signed Out José Luis Pederson MD Interpretation performed at [facility], [address] [place] [address], License number: [id number]. Clinical History Temporal arteries. Gross Description 1. Received in formalin labeled FRANKIE, left temporal artery biopsy is a segment of vasculature, 2 x 0.3 cm. The specimen is sectioned to reveal a pinpoint lumen. Are 3 segments of vasculature ranging from 0.5 cm to 1.2 cm in length by 0.2 cm in diameter. The specimen is submitted entirely in a single cassette. (1,ns,[id number], m1) . 2. Received in formalin labeled FRANKIE, right temporal artery biopsy are 3 segments of vasculature ranging from 0.5 cm to 1.2 cm in length by 0.2 cm in diameter. The segments are sectioned to reveal pinpoint lumens. The specimen are submitted entirely in cassettes A-B. (2,ns,[id number], m1) . 09/25/2023 Specimen(s) Received 1: Left temporal artery biopsy 2: Right temporal artery biopsy Fee Codes(s): 1; 51729, 42666 2; 16432, 37859 dRVVT/dRVVT.excess phospholi pid Coag (PPP) [Ratio]on 09-25-2023 dRVVT excess phospholipid Coag Ql (PPP) Negative [facility] ANCAon 09-24-2023 Neutrophil cytoplasmic Ab IF Ql (S) See Below [facility] Comment on above: NOTE TEST RESULT FLAG UNIT REF.RANGE --------- C-ANCA by Immunofluorescence Negative Negative P-ANCA by Immunofluorescence Negative Negative Proteinase-3 Ab <0.2 AI <1.0 Myeloperoxidase Ab <0.2 AI <1.0 INTERPRETATION (ANCA) See below Equivocal staining seen on the ethanol (indirect immunofluorescence screen) side but negative results on follow up confirmatory testing. Anti-nuclear antibody test may be considered. Clinical correlation is required. STAFF REVIEW (ANCA) See below Reviewed by Arun Tucker, Ph.D D([facility]) This test is used as an aid in diagnosis of patients with autoimmune vasculitidies. The final interpretation should be done in conjunction with ANCA test results and clinical correlation. Test Performed By: [facility] [address] [place] [address] Flux Core Welder: Meño Hernandez III, M.D. CLIA #[id number]^ BASIC METABOLIC PANLon 09-24 Anion gap [Moles/Vol] 10 mmol/L Normal 5-15 [facility] Comment on above: Performed By: #### C BCA, CMP, 1987-12, FEPR, 2276-4, 2284-8, 48761-2, 2132-9, 51294-8, 09276-4, 5130-0, 75382-4, 21209-6, 41033-5, 3357-1, 8092-9, 99499-6, 00227-0, 11185-1, 45735-4, 68327-2 #### [facility] ([id number]) [address] [facility], [address] [place] [address] Calcium [Mass/Vol] 8.5 mg/dL Normal 8.5-10.5 [facility] Comment on above: Performed By: #### C BCA, CMP, 1987-12, FEPR, 227-4, 2284-8, 07583-0, 2132-9, 00487-9, 59522-2, 5130-0, 64286-5, 36489-2, 11338-3, 3357-1, 8092-9, 59593-8, 12011-4, 75442-5, 16550-9, 88379-8 #### [facility] ([id number]) [address] [place] [address] Chloride [Moles/Vol] 101 mmol/L Normal 98-109 [facility] Comment on above: Performed By: #### C BCA, CMP, 1987-12, FEPR, 2276-4, 2284-8, 20960-2, 2132-9, 23834-9, 48431-0, 5130-0, 20632-0, 67168-8, 87145-9, 3357-1, 8092-9, 06335-9, 55189-5, 79345-3, 67449-7, 52714-2 #### [facility] ([id number]) [address] [facility], [address] [address] CO2 [Moles/Vol] 29 mmol/L Normal 22-32 [facility] Comment on above: Performed By: #### C BCA, CMP, 1987-12, FEPR, 2275-4, 2283-8, 67828-5, 2131-9, 41700-8, 39369-7, 5130-0, 35646-4, 16828-3, 77467-6, 3357-1, 8092-9, 65361-3, 97493-9, 42625-1, 11793-3, 78238-0 #### [facility] ([id number]) [address] [facility], [address] [address] Creatinine [Mass/Vol] 0.61 mg/dL Normal 0.40-1.00 [facility] Comment on above: Result Comment: METH OD TRACEABLE TO IDMS STANDARD Performed By: #### C BCA, CMP, 1987-12, FEPR, 2275-, 2283-8, 78326-6, 2131-9, 14750-7, 70797-7, 5130-0, 26317-5, 35858-2, 68868-9, 3357-1, 8092-9, 39001-2, 21188-2, 69385-5, 83741-8, 64658-5 #### [facility] ([id number]) [address], [facility] [address] [place] [address] eGFR (CKD-EPI) NON-RACE DEPENDENT >90 Normal >59 [facility] Comment on above: Result Comment: Reported eGFR is based on the CKD-EPI 2020 equation that does not use a race coefficient. Performed By: #### C BCA, CMP, 1987-12, FEPR, 2275-, 2283-8, 82477-3, 2132-9, 59200-5, 90856-6, 5130-0, 94175-9, 31924-2, 01444-4, 3357-1, 8092-9, 46193-2, 19417-6, 29135-0, 22681-9, 59952-2 #### [facility] ([id number]) [address], [address] [place] [address] Glucose [Mass/Vol] 98 mg/dL Normal 65-99 [facility] Comment on above: Performed By: #### C BCA, CMP, 1987-12, FEPR, 227-4, 2284-8, 29135-6, 2131-9, 87890-1, 13860-1, 5130-0, 74564-1, 65897-8, 17728-7, 3357-1, 8092-9, 15410-0, 82757-8, 68841-6, 37036-5, 61447-9 #### [facility] ([id number]) [address], [address] [place] [address] Potassium [Moles/Vol] 3.5 mmol/L Normal 3.5-5.0 [facility] Comment on above: Performed By: #### C BCA, CMP, 1987-12, FEPR, 2275-4, 4-8, 27307-2, 2131-9, 06249-6, 36772-2, 5130-0, 27276-5, 28167-1, 00690-8, 3357-1, 8092-9, 89729-3, 32169-7, 40139-2, 50594-6, 32259-3 #### [facility] ([id number]) [address], [address] [place] [address] Sodium [Moles/Vol] 140 mmol/L Normal 134-146 [facility] Comment on above: Performed By: #### C BCA, CMP, 1987-12, FEPR, 2275-4, 2283-8, 64249-1, 2132-9, 07301-4, 97341-3, 5130-0, 25032-9, 31886-0, 37025-0, 3357-1, 8092-9, 43546-6, 92815-1, 58371-4, 86406-8, 54397-9 #### [facility] ([id number]) [address] [facility], [address] [place] [address] Urea nitrogen [Mass/Vol] 22 mg/dL Normal 5-27 [facility] Comment on above: Performed By: #### C BCA, CMP, 1988-5, FEPR, 2276-4, 2284-8, 17551-8, 2132-9, 33620-2, 13761-5, 5130-0, 48264-8, 42161-9, 66166-8, 3357-1, 8092-9, 03939-3, 63458-1, 52830-3, 59708-7, 91074-1 #### [facility] ([id number]) [address] [place] [address], [address] [place] [address] Basic Metabolic Panelon -3 Anion gap [Moles/Vol] 10 mmol/L 5 - 15 mmol/L [facility] Calcium [Mass/Vol] 8.5 mg/dL 8.5 - 10. 5 mg/dL [facility] Chloride [Moles/Vol] 101 mmol/L 98 - 10 9 mmol/L [facility] CO2 [Moles/Vol] 29 mmol/L 22 - 32 mmol/L [facility] Creatinine [Mass/Vol] 0.61 mg/dL 0.40 - 1.00 mg/dL [facility] Comment on above: METHOD TRACEABLE TO IDMS STANDARD eGFR (CKD-EPI)non-race dependent - PINF [facility] Comment on above: Reported eGFR is based on the CKD-EPI 2020 equation that does not use a race coefficient. Glucose [Mass/Vol] 98 mg/dL 65 - 99 mg/dL [facility] Potassium [Moles/Vol] 3.5 mmol/L 3.5 - 5.0 mmol/L [facility] Sodium [Moles/Vol] 140 mmol/L 134 - 146 mmol/L [facility] Urea nitrogen [Mass/Vol] 22 mg/dL 5 - 27 mg/d L [facility] CBC AND AUTO DIFFon 09-24-19 24 ABSOLUTE BASOPHIL 0.1 X10E9/L Normal 0.0-0.2 [facility] Comment on above: Performed By: #### C BCA, CMP, 1987-12, FEPR, 2275-4, 2283-8, 81601-3, 2132-9, 96654-9, 18542-2, 5130-0, 40956-6, 03172-7, 91204-4, 3357-1, 8092-9, 39187-8, 43572-0, 71834-3, 34323-0, 66155-8 #### [facility] ([id number]) [address] [facility], [address] [place] [address] ABSOLUTE NEUTROPHIL 16.3 X10E9/L High 1.5-6.6 [facility] Comment on above: Performed By: #### C SHARATH, CMP, 1987-12, FEPR, 2275-, 2283-8, 73871-2, 2-9, 01579-9, 02595-2, 5130-0, 05362-8, 36751-7, 29743-0, 3357-1, 8092-9, 87892-0, 57119-4, 16137-6, 39139-8, 28136-7 #### [facility] ([id number]) [address], [address] [place] [address] Basophils/100 WBC (Bld) 0.5 % Normal [facility] Comment on above: Performed By: #### C BCA, CMP, 1987-12, FEPR, 2275-4, 2284-8, 54802-9, 2132-9, 15241-5, 18048-5, 5130-0, 92344-9, 42598-0, 72397-9, 3357-1, 8092-9, 96485-5, 48886-4, 69453-9, 74000-1, 49784-3 #### [facility] ([id number]) [address] [facility], [address] [place] [address] Eosinophils (Bld) [#/Vol] 0.0 10*3/uL Normal 0.0-0.4 [facility] Comment on above: Performed By: #### C BCA, CMP, 1987-12, FEPR, 2276-4, 2284-8, 05385-2, 2132-9, 76517-0, 94169-3, 5130-0, 06567-1, 64122-9, 28498-6, 3357-1, 8092-9, 33419-7, 78732-9, 64240-0, 22856-8, 91215-5 #### [facility] ([id number]) [address] [place] [address], [address] [address] Eosinophils/100 WBC (Bld) 0.0 % Normal [facility] Comment on above: Performed By: #### C SHARATH, CMP, 1987-12, FEPR, 6-4, 2284-8, 97832-8, 2132-9, 33018-8, 71016-5, 5130-0, 02319-3, 31793-6, 58271-1, 3357-1, 8092-9, 44018-5, 20040-4, 45439-8, 34546-8, 96702-3 #### [facility] ([id number]) [address] [place] [address], [address] [place] [address] Erythrocyte distribution width (RBC) [Ratio] 14.8 % Normal 11.5-15.0 [facility] Comment on above: Performed By: #### C BCA, CMP, 1987-12, FEPR, 227-4, 2284-8, 94618-5, 2132-9, 86523-7, 39537-0, 5130-0, 37874-9, 01332-2, 32639-5, 3357-1, 8092-9, 18120-4, 97871-4, 08197-7, 63646-9, 22408-4 #### [facility] ([id number]) [address], [address] [place] [address] Hematocrit (Bld) [Volume fraction] 25.6 % Low 35-47 [facility] Comment on above: Performed By: #### C SHARATH, CMP, 1987-12, FEPR, 6-4, 2284-8, 54364-0, 2132-9, 72117-5, 07893-7, 5130-0, 87731-1, 37781-7, 89460-1, 3357-1, 8092-9, 24905-2, 76570-3, 58376-8, 99529-3, 36533-7 #### [facility] ([id number]) [address], [address] [place] [address] Hemoglobin (Bld) [Mass/Vol] 8.3 g/dL Low 11.7-15.5 [facility] Comment on above: Performed By: #### C SHARATH, CMP, 1987-12, FEPR, 2275-4, 4-8, 23464-3, 2132-9, 08717-5, 05348-6, 5130-0, 28278-9, 11879-5, 02877-4, 3357-1, 8092-9, 37931-1, 56771-2, 88714-6, 39432-7, 64063-1 #### [facility] ([id number]) [address], [address] [place] [address] Lymphocytes (Bld) [#/Vol] 1.6 10*3/uL Normal 1.0-3.5 [facility] Comment on above: Performed By: #### C SHARATH, CMP, 1987-12, FEPR, 2276-4, 2284-8, 47696-2, 2132-9, 00936-2, 32514-8, 5130-0, 42772-2, 85003-3, 51218-6, 3357-1, 8092-9, 38433-2, 62360-3, 85148-9, 48223-2, 69202-0 #### [facility] ([id number]) [address] [facility], [address] [place] [address] Lymphocytes/100 WBC (Bld) 8.3 % Normal [facility] Comment on above: Performed By: #### C BCA, CMP, 1987-12, FEPR, 2275-4, 2284-8, 99101-5, 2132-9, 90184-0, 11499-9, 5130-0, 37030-3, 39212-1, 21223-1, 3357-1, 8092-9, 31127-1, 81319-3, 13833-6, 00010-5, 31847-7 #### [facility] ([id number]) [address] [facility], [address] [place] [address] MCH (RBC) [Entitic mass] 27.8 pg Normal 27-34 [facility] Comment on above: Performed By: #### C BCA, CMP, 1987-12, FEPR, 2275-4, 2284-8, 08538-9, 2132-9, 68188-0, 50511-4, 5130-0, 14616-2, 27926-9, 93524-5, 3357-1, 8092-9, 26936-8, 38901-1, 83666-8, 99974-2, 14309-4 #### [facility] ([id number]) [address] [facility], [address] [place] [address] MCHC (RBC) [Mass/Vol] 32.5 g/dL Normal 32-36 [facility] Comment on above: Performed By: #### C BCA, CMP, 1987-12, FEPR, 2276-4, 2284-8, 69760-2, 2132-9, 26940-8, 93443-8, 5130-0, 05784-3, 65719-8, 56985-1, 3357-1, 8092-9, 39544-9, 21683-3, 29035-0, 89510-3, 67260-6 #### [facility] ([id number]) [address], [address] [place] [address] MCV (RBC) [Entitic vol] 85 fL Normal 80-100 P [facility] Comment on above: Performed By: #### C SHARATH, CMP, 1987-12, FEPR, 2275-4, 2284-8, 46768-0, 2132-9, 56581-5, 93759-7, 5130-0, 02292-1, 78129-2, 38661-6, 3357-1, 8092-9, 03703-7, 11443-4, 09962-1, 07784-3, 03557-1 #### [facility] ([id number]) [address], [address] [place] [address] Monocytes (Bld) [#/Vol] 1.0 10*3/uL High 0-0.9 [facility] Comment on above: Performed By: #### C SHARATH, CMP, 1987-12, FEPR, 2275-4, 228-8, 99286-0, 2132-9, 21805-2, 87277-2, 5130-0, 39927-5, 86919-1, 90306-1, 3357-1, 8092-9, 82034-1, 70338-5, 99961-5, 85170-1, 07351-3 #### [facility] ([id number]) [address], [address] [place] [address] Monocytes/100 WBC (Bld) 5.0 % Normal [facility] Comment on above: Performed By: #### C BCA, CMP, 1987-12, FEPR, 2276-4, 2284-8, 55300-8, 2132-9, 35775-3, 53659-5, 5130-0, 57593-0, 81849-9, 63078-0, 3357-1, 8092-9, 15662-2, 92039-3, 97807-8, 74868-0, 64277-7 #### [facility] ([id number]) [address] [facility], [address] [place] [address] Neutrophils/100 WBC (Bld) 86.2 % Normal [facility] Comment on above: Performed By: #### C SHARATH, CMP, 1987-12, FEPR, 2275-4, 2284-8, 25350-3, 2132-9, 34763-7, 29739-8, 5130-0, 38117-8, 32497-4, 90311-6, 3357-1, 8092-9, 57888-0, 18686-3, 67881-8, 70190-3, 33587-7 #### [facility] ([id number]) [address] [place] [address], [address] [place] [address] Platelet mean volume (Bld) [Entitic vol] 6.5 fL Low 7-12 [facility] Comment on above: Performed By: #### C SHARATH, CMP, 1987-12, FEPR, 2276-4, 2284-8, 68182-9, 2132-9, 73185-0, 70089-7, 5130-0, 90022-3, 47338-0, 42684-6, 3357-1, 8092-9, 53477-0, 64574-1, 76030-4, 25285-2, 98255-8 #### [facility] ([id number]) [facility], [address] [place] [address] Platelets (Bld) [#/Vol] 902 10*3/uL High 150-450 [facility] Comment on above: Performed By: #### C BCA, CMP, 1987-12, FEPR, 2276-4, 2284-8, 04906-8, 2132-9, 34110-6, 65311-2, 5130-0, 77498-4, 54508-5, 44104-5, 3357-1, 8092-9, 48504-3, 54137-4, 92820-1, 57332-3, 20862-8 #### [facility] ([id number]) [address] [place] [address], [address] [place] [address] RBC COUNT 3.00 X10E12/L Low 3.80-5.20 [facility] Comment on above: Performed By: #### C BCA, CMP, 1987-12, FEPR, 2276-4, 2284-8, 91156-4, 2132-9, 96874-5, 53868-0, 5130-0, 59864-5, 49207-3, 21784-0, 3357-1, 8092-9, 67166-3, 72683-9, 51607-8, 40641-0, 40924-3 #### [facility] ([id number]) [address] [place] [address], [address] [address] WBC (Bld) [#/Vol] 18.9 10*3/uL High 4.0-11.0 [facility] Comment on above: Performed By: #### C BCA, CMP, 1987-12, FEPR, 2276-4, 2284-8, 69450-6, 2132-9, 49669-5, 53705-7, 5130-0, 77184-2, 72622-8, 91982-5, 3357-1, 8092-9, 56015-8, 50676-9, 35848-9, 54377-3, 98365-1 #### [facility] ([id number]) [address] [place] [address], [address] [place] [address] CBC auto differentialon 08-27 Basophils (Bld) [#/Vol] 0.1 10*3/uL [facility] Basophils/100 WBC (Bld) 0.5 % P [facility] Eosinophils (Bld) [#/Vol] 0.0 10*3/uL [facility] Eosinophils/100 WBC (Bld) 0.0 % [facility] Erythrocyte distribution width (RBC) [Ratio] 14.8 % 11.5 - 15.0 % [facility] Hematocrit (Bld) [Volume fraction] 25.6 % Low 35 - 47 % [facility] Hemoglobin (Bld) [Mass/Vol] 8.3 g/dL Low 11.7 - 15.5 g/dL [facility] Interpretation and review of laboratory results Abnormal [facility] Lymphocytes (Bld) [#/Vol] 1.6 10*3/uL [facility] Lymphocytes/100 WBC (Bld) 8.3 % [facility] MCH (RBC) [Entitic mass] 27.8 pg 27 - 34 pg [facility] MCHC (RBC) [Mass/Vol] 32.5 g/dL 32 - 36 g/dL [facility] MCV (RBC) [Entitic vol] 85 fL 80 - 100 fL [facility] Monocytes (Bld) [#/Vol] 1.0 10*3/uL High [facility] Monocytes/100 WBC (Bld) 5.0 % [facility] Neutrophils (Bld) [#/Vol] 16.3 10*3/uL High [facility] Neutrophils/100 WBC (Bld) 86.2 % [facility] Platelet mean volume (Bld) [Entitic vol] 6.5 fL Low 7 - 12 fL [facility] Platelets (Bld) [#/Vol] 902 10*3/uL High [facility] RBC (Bld) [#/Vol] 3.00 10*6/uL Low [facility] WBC corrected for nucl RBC Auto (Bld) [#/Vol] 18.9 High [facility] Cardiac echo study Procedure Ordered By: Ncaho Grant on 09-24-2023 Aortic root 2.80 cm [facility] Work Phone: AV mean gradient 6.00 mmHg [employer] Work Phone: [phone] AV peak gradient 8.64 mmHg [employer] Work Phone: [phone] AV peak kym 147.00 cm/s [employer] Work Phone: [phone] AV valve area 1.95 cm2 [employer] Work Phone: [phone] AV Velocity Ratio 0.77 [email or web address] Work Phone: [phone] AV VTI 33.60 cm [employer] Work Phone: [phone] E wave deceleration time 187.00 msec [employer] Work Phone: [phone] E/A ratio 0.72 [employer] Work Phone: [phone] Echo EF Estimated 63 % [email or web address] Work Phone: [phone] EF 63 % [employer] Work Phone: [phone] Energy loss index 1.88 [email or web address] Work Phone: [phone] FS 33 % 28 - 44 % [employer] Work Phone: Interventricular Septum Diastolic Thickness by 2D 10 cm [employer] Work Phone: [phone] IVS 1.00 cm 0.6 - 1.1 cm [employer] Work Phone: [phone] LA size 3.60 cm [employer] Work Phone: [phone] LA volume 48.00 cm3 [employer] Work Phone: [phone] LA Volume Index 31.8 mL/m2 [employer] Work Phone: Left Ventricle Mass [id number] g [employer] Work Phone: LV Diastolic Volume 71.20 mL [employer] Work Phone: LV ESV A2C 56.30 mL [employer] Work Phone: [phone] LV ESV A4C 33.20 mL [employer] Work Phone: LV RWT 2D 51.28 [employer] Work Phone: LV Systolic Volume 26.00 mL [employer] Work Phone: LVIDd 3.90 cm 3.78 - 5.25 cm [employer] Work Phone: LVIDs 2.60 cm 2.25 - 3.40 cm [employer] Work Phone: LVOT diameter 1.80 cm [employer] Work Phone: LVOT peak kym 1.37 m/s [employer] Work Phone: LVOT peak VTI 25.80 cm [employer] Work Phone: LVOT stroke volume 65.65 ml [employer] Work Phone: MV Peak A Kym 99.40 cm/s [employer] Work Phone: MV Peak E Kym 71.30 cm/s [employer] Work Phone: MV pressure 1/2 time 55.00 ms [employer] Work Phone: MV TDI E' (medial) 6.85 cm/s [employer] Work Phone: MV valve area p 1/2 method 4.00 cm2 [employer] Work Phone: PV peak gradient 4.16 mmHg [employer] Work Phone: PW 1.00 cm 0.6 - 1.1 cm [employer] Work Phone: RV diastolic dimension (basal) 29.0 mm [employer] Work Phone: TAPSE 1.88 cm [employer] Work Phone: TDI 9.68 cm/s [employer] Work Phone: Valve area - Index 1.3 [employer] Work Phone: ZLVIDD -1.32 [employer] Work Phone: ZLVIDS -0.48 [employer] Work Phone: [employer] Work Phone: Cardiac echo study Procedure on 09-24-2023 Left Ventricle: Ther e is mild concentric increased wall thickness/hypertrophy . Systolic function is normal with an ejection fraction of 60-65%. The quantitative EF by 2D Dorado biplane is 63%. No segmental wall motion abnormalities. Aortic Valve: The aortic valve is trileaflet. There is mild sclerosis. Mitral Valve: The leaflets are mildly thickened. There is mild posterior annular calcification. There is mild to moderate regurgitation. There is no evidence of mitral valve stenosis. Left Ventricle Left ventricle appears normal in size. There is mild concentric increased wall thickness/hypertrophy . Systolic function is normal with an ejection fraction of 60-65%. The quantitative EF by 2D [place]ado biplane is 63%. No segmental wall motion abnormalities. Grade I diastolic dysfunction (impaired relaxation) is present. Lateral E' is 9.68 cm/s. Medial E' is 6.85 cm/s. Right Ventricle Right ventricular size appears normal. The right ventricular basal diameter is 29.0 mm. Systolic function is normal. Left Atrium Left atrium is normal in size. The left atrial volume index is 31.8 mL/m2. Right Atrium Right atrium is normal in size. IVC/SVC IVC appears normal. Mitral Valve The leaflets are mildly thickened. There is mild posterior annular calcification. There is mild to moderate regurgitation. There is no evidence of mitral valve stenosis. Tricuspid Valve Tricuspid valve appears to be normal. There is trace regurgitation. There is no evidence of tricuspid valve stenosis. Aortic Valve The aortic valve is trileaflet. There is mild sclerosis. There is no regurgitation or stenosis. Pulmonic Valve Pulmonic valve structure is grossly normal. There is trace regurgitation. There is no evidence of pulmonic valve stenosis. The peak gradient is 4.16 mmHg. Ascending Aorta The aortic root is normal in size. Pericardium There is no pericardial effusion. Study Details A complete echo was performed using complete 2D, color flow Doppler and spectral Doppler. During the study the apical, parasternal, subcostal and suprasternal views were captured. Overall the study quality was adequate. Comparison No prior study for comparison. 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 COMPARISON: CT brain 09/13/2023 PROCEDURE: Routine MRI Brain was obtained before and after the uncomplicated intravenous administration of 10 mL ProHance. Multisequence, multiplanar imaging was obtained. FINDINGS: No acute diffusion signal abnormality. There is no midline shift, mass effect, or acute intracranial hemorrhage. Mild global parenchymal atrophy. No significant T2/FLAIR signal in the periventricular and deep subcortical white matter. The brainstem is unremarkable appearing. There is atrophy of the cerebellar vermis, greater than expected for the degree of global parenchymal atrophy. Contents of the sella turcica are unremarkable appearing. There is no mass effect placed on the optic chiasm. No enhancing intracranial mass/lesion. No evidence of pachymeningeal/leptom eningeal enhancement. Normal appearance of the major arterial structures in the mechoopda of [place]. The paranasal sinuses are clear. Partial bilateral mastoid effusions. Circumscribed 9 mm observation at the level of the right fossa of Rosenmuller. This lesion appears heterogeneous, though mostly hyper intense on T2. There is some intrinsic T1 hyperintensity. The bony orbits are unremarkable appearing. The intraconal and extraconal fat is unremarkable appearing. Extraocular muscles are symmetric. Bilateral lens replacement. There is otherwise normal contour and signal the globes. There is no pathologic enhancement of the optic nerves which are symmetric in appearance. Optic nerve sheaths are normal. Lacrimal apparatus is unremarkable appearing. Normal enhancement of the cavernous sinus. IMPRESSION: * No acute intracranial abnormality to account for patient's symptoms. * Normal morphology of the orbits and associated structures. * Incidental circumscribed 9 mm observation at the level of the right fossa of Rosenmuller. Though potentially representing a benign fossa of Rosenmuller cyst, intrinsic T1 signal does raise suspicion for a solid component. Consider direct visualization/samplin g if indicated. * Mild global parenchymal atrophy with asymmetrically advanced atrophy of the cerebellar vermis. This is a nonspecific finding. 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 COMPARISON: CT brain 09/13/2023 PROCEDURE: Routine MRI Brain was obtained before and after the uncomplicated intravenous administration of 10 mL ProHance. Multisequence, multiplanar imaging was obtained. FINDINGS: No acute diffusion signal abnormality. There is no midline shift, mass effect, or acute intracranial hemorrhage. Mild global parenchymal atrophy. No significant T2/FLAIR signal in the periventricular and deep subcortical white matter. The brainstem is unremarkable appearing. There is atrophy of the cerebellar vermis, greater than expected for the degree of global parenchymal atrophy. Contents of the sella turcica are unremarkable appearing. There is no mass effect placed on the optic chiasm. No enhancing intracranial mass/lesion. No evidence of pachymeningeal/leptom eningeal enhancement. Normal appearance of the major arterial structures in the mechoopda of [place]. The paranasal sinuses are clear. Partial bilateral mastoid effusions. Circumscribed 9 mm observation at the level of the right fossa of Rosenmuller. This lesion appears heterogeneous, though mostly hyper intense on T2. There is some intrinsic T1 hyperintensity. The bony orbits are unremarkable appearing. The intraconal and extraconal fat is unremarkable appearing. Extraocular muscles are symmetric. Bilateral lens replacement. There is otherwise normal contour and signal the globes. There is no pathologic enhancement of the optic nerves which are symmetric in appearance. Optic nerve sheaths are normal. Lacrimal apparatus is unremarkable appearing. Normal enhancement of the cavernous sinus. IMPRESSION: * No acute intracranial abnormality to account for patient's symptoms. * Normal morphology of the orbits and associated structures. * Incidental circumscribed 9 mm observation at the level of the right fossa of Rosenmuller. Though potentially representing a benign fossa of Rosenmuller cyst, intrinsic T1 signal does raise suspicion for a solid component. Consider direct visualization/samplin g if indicated. * Mild global parenchymal atrophy with asymmetrically advanced atrophy of the cerebellar vermis. This is a nonspecific finding. 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 COMPARISON: CT brain 09/13/2023 PROCEDURE: Routine MRI Brain was obtained before and after the uncomplicated intravenous administration of 10 mL ProHance. Multisequence, multiplanar imaging was obtained. FINDINGS: No acute diffusion signal abnormality. There is no midline shift, mass effect, or acute intracranial hemorrhage. Mild global parenchymal atrophy. No significant T2/FLAIR signal in the periventricular and deep subcortical white matter. The brainstem is unremarkable appearing. There is atrophy of the cerebellar vermis, greater than expected for the degree of global parenchymal atrophy. Contents of the sella turcica are unremarkable appearing. There is no mass effect placed on the optic chiasm. No enhancing intracranial mass/lesion. No evidence of pachymeningeal/leptom eningeal enhancement. Normal appearance of the major arterial structures in the mechoopda of [place]. The paranasal sinuses are clear. Partial bilateral mastoid effusions. Circumscribed 9 mm observation at the level of the right fossa of Rosenmuller. This lesion appears heterogeneous, though mostly hyper intense on T2. There is some intrinsic T1 hyperintensity. The bony orbits are unremarkable appearing. The intraconal and extraconal fat is unremarkable appearing. Extraocular muscles are symmetric. Bilateral lens replacement. There is otherwise normal contour and signal the globes. There is no pathologic enhancement of the optic nerves which are symmetric in appearance. Optic nerve sheaths are normal. Lacrimal apparatus is unremarkable appearing. Normal enhancement of the cavernous sinus. IMPRESSION: * No acute intracranial abnormality to account for patient's symptoms. * Normal morphology of the orbits and associated structures. * Incidental circumscribed 9 mm observation at the level of the right fossa of Rosenmuller. Though potentially representing a benign fossa of Rosenmuller cyst, intrinsic T1 signal does raise suspicion for a solid component. Consider direct visualization/samplin g if indicated. * Mild global parenchymal atrophy with asymmetrically advanced atrophy of the cerebellar vermis. This is a nonspecific finding. Approved by Resident Sathish Charlton DO on 09/24/2023 3:51 AM Raisa, Gilbert Jewell MD have personally reviewed the image(s) and agree with and/or edited the report Finalized by Gilbert Jewell MD on 09/24/2023 4:24 AM [facility] Radiology Study observation (narrative) [facility] MR ORBIT W WO CONTon 024 MR ORBIT W WO CONT MR ORBIT W WO CONT EXAM:MR ORBIT W WO CONT INDICATION: Optic neuritis suspected COMPARISON: CT brain 09/13/2023 TECHNIQUE/PROTOCOL: Multiplanar multisequence MRI of the brain and MRI orbits pre and post contrast. CONTRAST: 10mL ProHance IV. FINDINGS: No acute diffusion signal abnormality. There is no midline shift, mass effect, or acute intracranial hemorrhage. Mild global parenchymal atrophy. No significant T2/FLAIR signal in the periventricular and deep subcortical white matter. The brainstem is unremarkable appearing. There is atrophy of the cerebellar vermis, greater than expected for the degree of global parenchymal atrophy. Contents of the sella turcica are unremarkable appearing. There is no mass effect placed on the optic chiasm. No enhancing intracranial mass/lesion. No evidence of pachymeningeal/leptom eningeal enhancement. Normal appearance of the major arterial structures in the mechoopda of [place]. The paranasal sinuses are clear. Partial bilateral mastoid effusions. Circumscribed 9 mm observation at the level of the right fossa of Rosenmuller. This lesion appears heterogeneous, though mostly hyper intense on T2. There is some intrinsic T1 hyperintensity. The bony orbits are unremarkable appearing. The intraconal and extraconal fat is unremarkable appearing. Extraocular muscles are symmetric. Bilateral lens replacement. There is otherwise normal contour and signal the globes. There is no pathologic enhancement of the optic nerves which are otherwise symmetric in appearance. Optic nerve sheaths are normal. Lacrimal apparatus is unremarkable appearing. Normal enhancement of the cavernous sinus. IMPRESSION: * No acute intracranial abnormality to account for patient's symptoms. * Normal morphology of the orbits and associated structures. * Incidental circumscribed 9 mm observation the level of the right fossa of Rosenmuller. Though potentially representing a benign fossa of Rosenmuller cyst, intrinsic T1 signal does raise suspicion for solid component. Consider direct visualization/samplin g if indicated. * Mild global parenchymal atrophy with asymmetrically advanced atrophy of the cerebellar vermis. This is a nonspecific finding. Approved by Resident Sathish Charlton DO on 09/24/2023 4:18 AM Gilbert Kline MD have personally reviewed the image(s) and agree with and/or edited the report Finalized by Gilbert Jewell MD on 09/24/2023 4:25 AM Normal [facility] MR Orbit WO and W contrast I Von 09-24-2023 EXAM:MR ORBIT W WO CONT INDICATION: Optic neuritis suspected COMPARISON: CT brain 09/13/2023 TECHNIQUE/PROTOCOL: Multiplanar multisequence MRI of the brain and MRI orbits pre and post contrast. CONTRAST: 10mL ProHance IV. FINDINGS: No acute diffusion signal abnormality. There is no midline shift, mass effect, or acute intracranial hemorrhage. Mild global parenchymal atrophy. No significant T2/FLAIR signal in the periventricular and deep subcortical white matter. The brainstem is unremarkable appearing. There is atrophy of the cerebellar vermis, greater than expected for the degree of global parenchymal atrophy. Contents of the sella turcica are unremarkable appearing. There is no mass effect placed on the optic chiasm. No enhancing intracranial mass/lesion. No evidence of pachymeningeal/leptom eningeal enhancement. Normal appearance of the major arterial structures in the mechoopda of [place]. The paranasal sinuses are clear. Partial bilateral mastoid effusions. Circumscribed 9 mm observation at the level of the right fossa of Rosenmuller. This lesion appears heterogeneous, though mostly hyper intense on T2. There is some intrinsic T1 hyperintensity. The bony orbits are unremarkable appearing. The intraconal and extraconal fat is unremarkable appearing. Extraocular muscles are symmetric. Bilateral lens replacement. There is otherwise normal contour and signal the globes. There is no pathologic enhancement of the optic nerves which are otherwise symmetric in appearance. Optic nerve sheaths are normal. Lacrimal apparatus is unremarkable appearing. Normal enhancement of the cavernous sinus. IMPRESSION: * No acute intracranial abnormality to account for patient's symptoms. * Normal morphology of the orbits and associated structures. * Incidental circumscribed 9 mm observation the level of the right fossa of Rosenmuller. Though potentially representing a benign fossa of Rosenmuller cyst, intrinsic T1 signal does raise suspicion for solid component. Consider direct visualization/samplin g if indicated. * Mild global parenchymal atrophy with asymmetrically advanced atrophy of the cerebellar vermis. This is a nonspecific finding. Approved by Resident Sathish Charlton DO on 09/24/2023 4:18 AM Gilbert Kline MD have personally reviewed the image(s) and agree with and/or edited the report Finalized by Gilbert Jewell MD on 09/24/2023 4:25 AM [facility] Gilbert Jewell M D - 09/24/2023 EXAM:MR ORBIT W WO CONT INDICATION: Optic neuritis suspected COMPARISON: CT brain 09/13/2023 TECHNIQUE/PROTOCOL: Multiplanar multisequence MRI of the brain and MRI orbits pre and post contrast. CONTRAST: 10mL ProHance IV. FINDINGS: No acute diffusion signal abnormality. There is no midline shift, mass effect, or acute intracranial hemorrhage. Mild global parenchymal atrophy. No significant T2/FLAIR signal in the periventricular and deep subcortical white matter. The brainstem is unremarkable appearing. There is atrophy of the cerebellar vermis, greater than expected for the degree of global parenchymal atrophy. Contents of the sella turcica are unremarkable appearing. There is no mass effect placed on the optic chiasm. No enhancing intracranial mass/lesion. No evidence of pachymeningeal/leptom eningeal enhancement. Normal appearance of the major arterial structures in the mechoopda of Howell. The paranasal sinuses are clear. Partial bilateral mastoid effusions. Circumscribed 9 mm observation at the level of the right fossa of Rosenmuller. This lesion appears heterogeneous, though mostly hyper intense on T2. There is some intrinsic T1 hyperintensity. The bony orbits are unremarkable appearing. The intraconal and extraconal fat is unremarkable appearing. Extraocular muscles are symmetric. Bilateral lens replacement. There is otherwise normal contour and signal the globes. There is no pathologic enhancement of the optic nerves which are otherwise symmetric in appearance. Optic nerve sheaths are normal. Lacrimal apparatus is unremarkable appearing. Normal enhancement of the cavernous sinus. IMPRESSION: * No acute intracranial abnormality to account for patient's symptoms. * Normal morphology of the orbits and associated structures. * Incidental circumscribed 9 mm observation the level of the right fossa of Rosenmuller. Though potentially representing a benign fossa of Rosenmuller cyst, intrinsic T1 signal does raise suspicion for solid component. Consider direct visualization/samplin g if indicated. * Mild global parenchymal atrophy with asymmetrically advanced atrophy of the cerebellar vermis. This is a nonspecific finding. Approved by Resident Sathish Charlton DO on 09/24/2023 4:18 AM I, Gilbert Jewell MD have personally reviewed the image(s) and agree with and/or edited the report Finalized by Gilbert Jewell MD on 09/24/2023 4:25 AM [facility] Radiology Study observation (narrative) [facility] MR Orbit WO and W contrast I VOrdered By: Gilbert Jewell on 09-24-2023 [facility] Work Phone: Neutrophil cytoplasmic Ab IF Ql (S)on 09-24-2023 [facility] Reticulocyteson 09-24-2023 Reticulocytes/100 RBC (Bld) 2.3 % High 0.4 - 2.2 % [facility] Reticulocytes/100 RBC (Bld)o n 09-24-2023 Interpretation and review of laboratory results Abnormal [facility] RETICULOCYTE COUNT 2.3 % High 0.4-2.2 [facility] Comment on above: Performed By: #### C BCA, CMP, 1988-, FEPR, 2276-4, 2284-8, 12338-2, 2132-9, 46693-0, 80145-0, 5130-0, 96842-0, 69131-8, 27996-9, 3357-1, 8092-9, 98620-7, 99369-1, 80447-9, 83404-8, 77226-0 #### [facility] ([id number]) [address] [facility], [address] [place] [address] ACUTE HEPATITIS PANELon 08-27 ANTI HCV W/PCR REFLX Non-Reactive Normal NRCT Pr [facility] Comment on above: Result Comment: If recent infection suspected, recommend repeat testing (>2 months). Zhfxtz-ho-idfiop ratio is <0.80. Performed By: #### C SHARATH, CMP, 1987-12, FEPR, 2276-4, 2284-8, 86898-0, 2132-9, 71859-1, 94842-5, 5130-0, 37627-7, 57572-8, 43013-8, 3357-1, 8092-9, 13311-6, 09604-0, 98976-5, 07223-8, 45684-6 #### [facility] ([id number]) [address] [facility], [address] [place] [address] HEPATITIS A IGM Non-Reactive Normal NRCT [facility] Comment on above: Performed By: #### C SHARATH, CMP, 1987-12, FEPR, 227-4, 2284-8, 04423-6, 2132-9, 77623-9, 98671-4, 5130-0, 61926-3, 49071-7, 73433-6, 3357-1, 8092-9, 90453-8, 91488-9, 66265-6, 86328-2, 47573-6 #### [facility] ([id number]) [facility], [address] [place] [address] HEPATITIS B CORE IGM Negative Normal NEG [facility] Comment on above: Performed By: #### C BCA, CMP, 1987-12, FEPR, 2276-4, 2284-8, 55322-4, 2132-9, 91014-6, 35243-8, 5130-0, 40069-9, 57758-6, 66981-6, 3357-1, 8092-9, 19646-0, 91102-2, 34101-6, 04799-8, 25121-0 #### [facility] ([id number]) [address] [place] [address], [address] [place] [address] HEPATITIS B SURF AG Negative Normal NEG [facility] Comment on above: Performed By: #### C KELVIN EARLY, 1987-12, FEPR, 6-4, 4-8, 55402-3, 2131-9, 31875-3, 62267-8, 5130-0, 15061-5, 95352-6, 64080-7, 3357-1, 8092-9, 78011-0, 87333-9, 18330-7, 24132-5, 00386-9 #### [facility] ([id number]) [address] [place] [address], [address] [place] [address] SILVIA Screen w/ Reflexon 09-23 Nuclear Ab IA Ql (S) Positive Abnormal Negativ e^Neg ative [facility] Comment on above: Testing performed using multiplex flow immunoassay. Eleven different antigens associated with systemic autoimmune diseases (dsDNA,Sm,Sm/TRUCK LEASING MANAGER,TRUCK LEASING MANAGER,Chromatin, SSA,SSB,Tiki-1,Scl70,Ribo P,Centromere B) are included in this screening test. ANTI CARDIOLIPIN AB IGG IGA IGMon 09-23-2023 MIRIAM IgA <2.0 Normal 0-19.9 [facility] Comment on above: Performed By: #### C KELVIN EARLY, 1987-12, FEPR, 2275-4, 4-8, 96333-0, 2131-9, 88650-5, 34056-0, 5130-0, 81177-6, 36724-7, 46145-2, 3357-1, 8092-9, 06763-1, 02478-5, 88674-0, 05137-5, 08097-4 #### [facility] ([id number]) [address] [place] [address], [address] [place] [address] MIRIAM IgG <1.6 Normal 0-19.9 [facility] Comment on above: Performed By: #### C KELVIN EARLY, 1987-12, FEPR, 2275-4, 2283-8, 14927-3, 2132-9, 99736-5, 86159-1, 5130-0, 07515-1, 04539-4, 95361-8, 3357-1, 8092-9, 14466-5, 11452-3, 03233-5, 73460-5, 08400-7 #### [facility] ([id number]) [address] [place] [address], [address] [place] [address] MIRIAM IgM <1.5 Normal 0-19.9 [facility] Comment on above: Performed By: #### C SHARATH, CMP, 1987-12, FEPR, 2276-4, 2284-8, 54811-3, 213-9, 15473-0, 63597-9, 5130-0, 76350-6, 73787-5, 61373-8, 3357-1, 8092-9, 06472-1, 28325-0, 54302-4, 99283-5, 02982-8 #### [facility] ([id number]) [address] [place] [address], [address] [place] [address] Anileridine Ql (U)on 024 JO1 ANTIBODY <0.2 Normal <1.0 [facility] Comment on above: Performed By: #### C BCA, CMP, 1987-12, FEPR, 2276-4, 2284-8, 89200-0, 2132-9, 68826-9, 38689-3, 5130-0, 22854-9, 92031-8, 82742-3, 3357-1, 8092-9, 25487-1, 32645-2, 07924-5, 67846-6, 03553-7 #### [facility] ([id number]) [address] [place] [address], [address] [place] [address] Anti cardiolipin AB IgG IgA IgMon 09-23-2023 Cardiolipin IgA IA Qn (S) [facility] Cardiolipin IgG IA Qn (S) [facility] Cardiolipin IgM IA Qn (S) [facility] Anti-Chromatin IGGon 024 Chromatin Ab Ql 0.4 [facility] Comment on above: CLIA ID [id number] Anti-DNA antibody, double-st randedon 09-23-2023 DNA double strand Ab Qn (S) 1 [IU]/mL [facility] Comment on above: Interpretation-------- <5 Negative 5-9 Indeterminate >9 Positive CLIA ID [id number] Anti-Ribosomal P AB IGGon Ribosomal P IgG Qn (S) [facility] Comment on above: CLIA ID [id number] Anti-Mejia AB IGGon 09-23-19 24 Mejia extractable nuclear IgG Qn (S) [facility] Comment on above: CLIA ID [id number] BETA-2 GP1 AB PANELon 2023 BETA-2 GP1 IgA <2.0 Normal 0.0-19.9 [facility] Comment on above: Performed By: #### C KELVIN EARLY, 1987-12, FEPR, 2275-4, 4-8, 00071-2, 2131-9, 18308-0, 45222-1, 5130-0, 08984-0, 67533-5, 18990-1, 3357-1, 8092-9, 71003-9, 61081-8, 62494-8, 20381-3, 83656-8 #### [facility] ([id number]) [address] [facility], [address] [place] [address] BETA-2 GP1 IgG <1.4 Normal 0.0-19.9 [facility] Comment on above: Performed By: #### C KELVIN EARLY, 1987-12, FEPR, 2275-4, 2283-8, 33097-5, 2132-9, 09777-2, 51557-4, 5130-0, 10378-3, 94525-7, 20604-2, 3357-1, 8092-9, 87297-4, 13283-0, 86531-4, 47475-9, 82063-1 #### [facility] ([id number]) [address] [facility], [address] [place] [address] BETA-2 GP1 IgM 4.1 u/mL Normal 0.0-19.9 [facility] Comment on above: Performed By: #### C BCA, CMP, 1987-12, FEPR, 2276-4, 2284-8, 03700-9, 9, 87852-0, 58856-2, 5130-0, 66896-4, 32829-0, 62662-7, 3357-1, 8092-9, 17325-6, 26296-2, 08304-3, 99615-8, 54305-7 #### [facility] ([id number]) [address] [place] [address], [address] [place] [address] Beta-2 glycoprotein antibodi eson 09-23-2023 Beta 2 glycoprotein 1 IgA IA Qn u/mL 0.0 - 19.9 u/mL [facility] Beta 2 glycoprotein 1 IgG IA Qn u/mL 0.0 - 19.9 u/mL [facility] Beta 2 glycoprotein 1 IgM IA Qn 4.1 u/mL 0.0 - 19.9 u/mL [facility] C-reactive proteinon 024 CRP [Mass/Vol] 13.3 mg/dL High 0.000 - 0.744 mg/dL [facility] CBC AND AUTO DIFFon 09-23-19 24 ABSOLUTE BASOPHIL 0.0 X10E9/L Normal 0.0-0.2 [facility] Comment on above: Performed By: #### C BCA, CMP, 1987-12, FEPR, 2276-4, 2284-8, 38249-7, 9, 55758-3, 58448-1, 5130-0, 81960-1, 27922-5, 37894-6, 3357-1, 8092-9, 59043-9, 44926-5, 28369-2, 86013-0, 93233-4 #### [facility] ([id number]) [address], [address] [place] [address] ABSOLUTE NEUTROPHIL 11.5 X10E9/L High 1.5-6.6 [facility] Comment on above: Performed By: #### C BCA, CMP, 1987-12, FEPR, 2276-4, 2284-8, 83946-9, 2132-9, 86473-8, 15333-7, 5130-0, 04551-1, 48391-5, 93333-7, 3357-1, 8092-9, 76569-3, 02597-0, 47408-7, 35901-2, 97890-7 #### [facility] ([id number]) [address], [address] [place] [address] Basophils/100 WBC (Bld) 0.2 % Normal P [facility] Comment on above: Performed By: #### C BCA, CMP, 1987-12, FEPR, 2275-4, 2284-8, 96271-6, 2132-9, 11617-0, 14129-1, 5130-0, 60089-7, 16693-1, 58117-0, 3357-1, 8092-9, 82194-3, 67342-8, 61797-0, 28984-5, 73910-2 #### [facility] ([id number]) [address], [address] [place] [address] Eosinophils (Bld) [#/Vol] 0.0 10*3/uL Normal 0.0-0.4 [facility] Comment on above: Performed By: #### C BCA, CMP, 1987-12, FEPR, 227-4, 2284-8, 02423-4, 2132-9, 65989-1, 25185-8, 5130-0, 82947-0, 22330-1, 62148-4, 3357-1, 8092-9, 05398-7, 28095-8, 64412-1, 31216-8, 94797-9 #### [facility] ([id number]) [address] [facility], [address] [place] [address] Eosinophils/100 WBC (Bld) 0.0 % Normal [facility] Comment on above: Performed By: #### C BCA, CMP, 1987-12, FEPR, 2275-4, 2284-8, 04650-7, 2132-9, 10949-6, 31817-7, 5130-0, 31655-8, 16451-4, 36669-6, 3357-1, 8092-9, 99029-8, 80429-4, 31671-8, 52627-6, 70638-0 #### [facility] ([id number]) [facility] [facility], [address] [place] [address] Erythrocyte distribution width (RBC) [Ratio] 14.4 % Normal 11.5-15.0 [facility] Comment on above: Performed By: #### C BCA, CMP, 1987-12, FEPR, 2275-4, 4-8, 10276-7, 2132-9, 71851-0, 77261-4, 5130-0, 85987-1, 29810-1, 09216-6, 3357-1, 8092-9, 68899-7, 52003-5, 46365-1, 52203-3, 16371-3 #### [facility] ([id number]) [facility], [address] [place] [address] Hematocrit (Bld) [Volume fraction] 27.8 % Low 35-47 [facility] Comment on above: Performed By: #### C BCA, CMP, 1987-12, FEPR, 2276-4, 2284-8, 95844-4, 2132-9, 61346-1, 96072-2, 5130-0, 01178-9, 64882-6, 10023-9, 3357-1, 8092-9, 91467-3, 74336-8, 56370-1, 24583-6, 88453-5 #### [facility] ([id number]) [address] [facility], [address] [place] [address] Hemoglobin (Bld) [Mass/Vol] 9.1 g/dL Low 11.7-15.5 [facility] Comment on above: Performed By: #### C SHARATH, CMP, 1987-12, FEPR, 2275-4, 2284-8, 10989-8, 2132-9, 01911-0, 60400-3, 5130-0, 58793-1, 52019-3, 13675-8, 3357-1, 8092-9, 64973-9, 44385-3, 15720-4, 91764-9, 45866-7 #### [facility] ([id number]) [address] [facility], [address] [place] [address] Lymphocytes (Bld) [#/Vol] 0.4 10*3/uL Low 1.0-3.5 [facility] Comment on above: Performed By: #### C SHARATH, CMP, 1987-12, FEPR, 2275-4, 2284-8, 08418-8, 2132-9, 79472-5, 00302-0, 5130-0, 51201-4, 69222-4, 14243-7, 3357-1, 8092-9, 84453-3, 80687-9, 94081-4, 37460-7, 99260-7 #### [facility] ([id number]) [address] [facility], [address] [place] [address] Lymphocytes/100 WBC (Bld) 3.3 % Normal [facility] Comment on above: Performed By: #### C BCA, CMP, 1987-12, FEPR, 2276-4, 2284-8, 09342-2, 2132-9, 19507-0, 58437-6, 5130-0, 78969-9, 44224-5, 92507-6, 3357-1, 8092-9, 29442-5, 10035-1, 22294-0, 26283-9, 95148-7 #### [facility] ([id number]) [address], [address] [place] [address] MCH (RBC) [Entitic mass] 27.8 pg Normal 27-34 [facility] Comment on above: Performed By: #### C SHARATH, CMP, 1987-12, FEPR, 2276-4, 2284-8, 69350-2, 2132-9, 91008-4, 60126-5, 5130-0, 49168-5, 75644-9, 87254-2, 3357-1, 8092-9, 38077-3, 68308-1, 63953-7, 37811-3, 34773-4 #### [facility] ([id number]) [address], [address] [place] [address] MCHC (RBC) [Mass/Vol] 32.7 g/dL Normal 32-36 [facility] Comment on above: Performed By: #### C SHARATH, CMP, 1987-12, FEPR, 2275-4, 2284-8, 18158-0, 2132-9, 19954-8, 75693-6, 5130-0, 74925-8, 68805-5, 44647-7, 3357-1, 8092-9, 67406-1, 06376-5, 64166-0, 86402-0, 71645-8 #### [facility] ([id number]) [address], [address] [place] [address] MCV (RBC) [Entitic vol] 85 fL Normal 80-100 [facility] Comment on above: Performed By: #### C BCA, CMP, 1987-12, FEPR, 2276-4, 2284-8, 07566-9, 2132-9, 75416-4, 90005-8, 5130-0, 16781-8, 88731-8, 00780-0, 3357-1, 8092-9, 20737-1, 77643-0, 84528-6, 18277-2, 03438-6 #### [facility] ([id number]) [address], [address] [place] [address] Monocytes (Bld) [#/Vol] 0.1 10*3/uL Normal 0-0.9 [facility] Comment on above: Performed By: #### C SHARATH, CMP, 1987-12, FEPR, 6-4, 2284-8, 18563-6, 2132-9, 71305-9, 55578-5, 5130-0, 33805-1, 53465-4, 24204-6, 3357-1, 8092-9, 22175-0, 80615-6, 74282-3, 98442-2, 49983-0 #### [facility] ([id number]) [address], [address] [place] [address] Monocytes/100 WBC (Bld) 1.0 % Normal [facility] Comment on above: Performed By: #### C BCA, CMP, 1987-12, FEPR, 2275-4, 2284-8, 67815-1, 2132-9, 81571-9, 15294-3, 5130-0, 40495-6, 06434-1, 85365-2, 3357-1, 8092-9, 71805-4, 75865-0, 11875-9, 97090-3, 23820-7 #### [facility] ([id number]) [address], [address] [place] [address] Neutrophils/100 WBC (Bld) 95.5 % Normal [facility] Comment on above: Performed By: #### C BCA, CMP, 1987-12, FEPR, 2276-4, 2284-8, 35907-9, 2132-9, 21297-0, 72367-7, 5130-0, 24989-9, 88187-2, 34277-9, 3357-1, 8092-9, 37066-1, 76504-7, 66142-0, 06427-3, 42707-6 #### [facility] ([id number]) [address], [address] [place] [address] Platelet mean volume (Bld) [Entitic vol] 6.2 fL Low 7-12 [facility] Comment on above: Performed By: #### C BCA, CMP, 1987-12, FEPR, 2276-4, 2284-8, 74532-8, 2132-9, 34344-0, 46065-8, 5130-0, 25770-0, 27594-7, 94791-3, 3357-1, 8092-9, 01179-6, 46319-9, 92739-5, 97559-3, 47622-2 #### [facility] ([id number]) [address], [address] [place] [address] Platelets (Bld) [#/Vol] 924 10*3/uL High 150-450 [facility] Comment on above: Performed By: #### C BCA, CMP, 1987-12, FEPR, 2276-4, 2284-8, 46952-2, 2132-9, 27452-7, 93489-6, 5130-0, 57818-9, 41349-1, 42364-1, 3357-1, 8092-9, 49341-0, 40455-9, 17411-1, 21942-7, 67082-2 #### [facility] ([id number]) [address], [address] [place] [address] RBC COUNT 3.27 X10E12/L Low 3.80-5.20 [facility] Comment on above: Performed By: #### C BCA, CMP, 1987-12, FEPR, 2276-4, 2284-8, 78336-3, 2132-9, 93969-3, 32081-5, 5130-0, 28148-6, 81988-1, 60885-3, 3357-1, 8092-9, 64580-4, 26938-9, 39934-2, 92307-0, 63354-7 #### [facility] ([id number]) [address], [address] [place] [address] WBC (Bld) [#/Vol] 12.1 10*3/uL High 4.0-11.0 [facility] Comment on above: Performed By: #### C BCA, CMP, 1987-12, FEPR, 2275-4, 2284-8, 68417-7, 2132-9, 07821-2, 42332-7, 5130-0, 33807-9, 34961-5, 22240-8, 3357-1, 8092-9, 12337-5, 81468-7, 97711-2, 87344-7, 74360-6 #### [facility] ([id number]) [address], [address] [place] [address] ABSOLUTE BASOPHIL 0.2 X10E9/L Normal 0.0-0.2 [facility] Comment on above: Performed By: #### C BCA, CMP, 1987-12, FEPR, 2276-4, 2284-8, 93491-7, 2132-9, 37905-5, 69152-3, 5130-0, 25716-1, 29702-1, 77105-3, 3357-1, 8092-9, 13190-0, 16512-9, 01228-5, 61950-1, 63456-6 #### [facility] ([id number]) [address], [address] [place] [address] ABSOLUTE NEUTROPHIL 10.4 X10E9/L High 1.5-6.6 [facility] Comment on above: Performed By: #### C BCA, CMP, 1987-12, FEPR, 2276-4, 2284-8, 90681-8, 2132-9, 12682-6, 93949-2, 5130-0, 87487-3, 05290-5, 54576-9, 3357-1, 8092-9, 72895-1, 02346-0, 03202-8, 59174-2, 56064-4 #### [facility] ([id number]) [address] [facility], [address] [place] [address] Basophils/100 WBC (Bld) 2.1 % Normal [facility] Comment on above: Performed By: #### C BCA, CMP, 1987-12, FEPR, 2275-4, 2283-8, 51218-6, 2132-9, 61334-1, 87543-4, 5130-0, 45547-5, 79968-3, 20373-6, 3357-1, 8092-9, 22746-8, 11286-5, 42838-0, 24083-4, 49260-3 #### [facility] ([id number]) [address] [facility], [address] [place] [address] Eosinophils (Bld) [#/Vol] 0.0 10*3/uL Normal 0.0-0.4 [facility] Comment on above: Performed By: #### C BCA, CMP, 1987-12, FEPR, 2275-4, 2284-8, 10798-6, 2132-9, 18988-0, 44857-7, 5130-0, 77454-2, 65843-3, 42005-2, 3357-1, 8092-9, 51755-5, 46683-7, 98521-2, 80976-9, 22270-0 #### [facility] ([id number]) [address], [address] [place] [address] Eosinophils/100 WBC (Bld) 0.0 % Normal [facility] Comment on above: Performed By: #### C BCA, CMP, 1987-12, FEPR, 2276-4, 2284-8, 76196-6, 2132-9, 80624-8, 65231-4, 5130-0, 79651-4, 16577-2, 77132-9, 3357-1, 8092-9, 34733-0, 88224-6, 23777-7, 76300-7, 02633-4 #### [facility] ([id number]) [address], [address] [place] [address] Erythrocyte distribution width (RBC) [Ratio] 14.6 % Normal 11.5-15.0 [facility] Comment on above: Performed By: #### C BCA, CMP, 1987-12, FEPR, 227-4, 2284-8, 77212-8, 2132-9, 96435-0, 05478-9, 5130-0, 82692-0, 03272-7, 04013-2, 3357-1, 8092-9, 56080-9, 53717-1, 27810-5, 82506-4, 07342-1 #### [facility] ([id number]) [address], [address] [place] [address] Hematocrit (Bld) [Volume fraction] 26.2 % Low 35-47 [facility] Comment on above: Performed By: #### C BCA, CMP, 1987-12, FEPR, 2276-4, 2284-8, 54517-1, 2132-9, 95490-6, 31596-2, 5130-0, 41173-4, 93643-1, 44583-8, 3357-1, 8092-9, 68659-8, 96690-8, 82483-4, 15718-3, 93212-2 #### [facility] ([id number]) [address], [address] [place] [address] Hemoglobin (Bld) [Mass/Vol] 8.6 g/dL Low 11.7-15.5 [facility] Comment on above: Performed By: #### C BCA, CMP, 1987-12, FEPR, 2275-4, 2283-8, 31446-5, 213-9, 47653-9, 98045-6, 5130-0, 11099-6, 50415-6, 57885-7, 3357-1, 8092-9, 85300-8, 73539-6, 68560-7, 86933-1, 57909-0 #### [facility] ([id number]) [address], [address] [place] [address] Lymphocytes (Bld) [#/Vol] 0.4 10*3/uL Low 1.0-3.5 [facility] Comment on above: Performed By: #### C BCA, CMP, 1987-12, FEPR, 2275-, 2283-8, 64901-3, 213-9, 25832-3, 72627-3, 5130-0, 16078-2, 85015-2, 95013-7, 3357-1, 8092-9, 93324-0, 43018-8, 67422-6, 63387-6, 77506-8 #### [facility] ([id number]) [address], [address] [place] [address] Lymphocytes/100 WBC (Bld) 3.6 % Normal [facility] Comment on above: Performed By: #### C BCA, CMP, 1987-12, FEPR, 2275-4, 228-8, 19657-9, 2132-9, 15426-3, 79366-9, 5130-0, 39179-3, 09911-8, 35106-4, 3357-1, 8092-9, 92169-4, 60981-1, 30677-4, 66975-6, 64613-7 #### [facility] ([id number]) [address], [address] [place] [address] MCH (RBC) [Entitic mass] 28.1 pg Normal 27-34 [facility] Comment on above: Performed By: #### C BCA, CMP, 1987-12, FEPR, 227-4, 2284-8, 99250-8, 213-9, 91537-1, 73134-8, 5130-0, 81542-6, 93568-1, 19429-6, 3357-1, 8092-9, 45229-5, 08813-3, 06415-4, 21289-8, 46316-4 #### [facility] ([id number]) [address], [address] [place] [address] MCHC (RBC) [Mass/Vol] 32.9 g/dL Normal 32-36 [facility] Comment on above: Performed By: #### C BCA, CMP, 1987-12, FEPR, 2275-4, 2283-8, 57963-0, 213-9, 69371-9, 62701-7, 5130-0, 82449-9, 48490-0, 95219-7, 3357-1, 8092-9, 28633-1, 52323-3, 78017-5, 40600-4, 95966-0 #### [facility] ([id number]) [address], [address] [place] [address] MCV (RBC) [Entitic vol] 85 fL Normal 80-100 [facility] Comment on above: Performed By: #### C BCA, CMP, 1987-12, FEPR, 2276-4, 2284-8, 50742-3, 2132-9, 90349-9, 48305-7, 5130-0, 82054-5, 43741-4, 88457-2, 3357-1, 8092-9, 40288-8, 56784-4, 82698-2, 98437-4, 08993-9 #### [facility] ([id number]) [address], [address] [place] [address] Monocytes (Bld) [#/Vol] 0.1 10*3/uL Normal 0-0.9 [facility] Comment on above: Performed By: #### C BCA, CMP, 1987-12, FEPR, 2276-4, 2284-8, 77446-4, 2132-9, 30794-0, 97134-3, 5130-0, 56302-5, 70928-6, 91098-9, 3357-1, 8092-9, 28494-9, 71170-3, 00175-0, 70157-8, 86809-5 #### [facility] ([id number]) [address], [address] [place] [address] Monocytes/100 WBC (Bld) 1.0 % Normal [facility] Comment on above: Performed By: #### C BCA, CMP, 1987-12, FEPR, 2275-4, 4-8, 59921-0, 2132-9, 39714-4, 30291-2, 5130-0, 52569-4, 27092-0, 37370-2, 3357-1, 8092-9, 03325-5, 63644-7, 41914-0, 96421-7, 18313-0 #### [facility] ([id number]) [address], [address] [place] [address] Neutrophils/100 WBC (Bld) 93.3 % Normal [facility] Comment on above: Performed By: #### C BCA, CMP, 1987-12, FEPR, 2276-4, 2284-8, 05774-2, 2132-9, 15228-4, 20283-9, 5130-0, 93165-2, 03955-2, 55644-6, 3357-1, 8092-9, 58446-7, 44451-7, 61458-3, 29658-3, 98921-4 #### [facility] ([id number]) [address], [address] [place] [address] Platelet mean volume (Bld) [Entitic vol] 6.3 fL Low 7-12 [facility] Comment on above: Performed By: #### C SHARATH, CMP, 1987-12, FEPR, 2276-4, 2284-8, 96780-6, 2132-9, 25816-2, 63700-8, 5130-0, 74850-1, 91114-4, 84576-4, 3357-1, 8092-9, 56048-2, 51336-5, 28532-2, 42102-9, 66026-9 #### [facility] ([id number]) [address] [facility] [facility], [address] [place] [address] Platelets (Bld) [#/Vol] 917 10*3/uL High 150-450 [facility] Comment on above: Performed By: #### C SHARATH, KELVIN, 1987-12, FEPR, 2275-4, 2284-8, 87197-5, 2132-9, 21221-5, 61352-0, 5130-0, 42877-6, 42346-7, 67322-2, 3357-1, 8092-9, 00564-2, 54261-2, 22187-7, 85835-7, 42889-5 #### [facility] ([id number]) [address] [facility], [address] [place] [address] RBC COUNT 3.07 X10E12/L Low 3.80-5.20 [facility] Comment on above: Performed By: #### C SHARATH, CMP, 1987-12, FEPR, 2276-4, 2284-8, 90032-2, 2132-9, 07021-6, 18694-5, 5130-0, 72068-6, 75202-4, 57639-7, 3357-1, 8092-9, 87768-3, 90744-6, 55998-0, 04328-1, 40965-6 #### [facility] ([id number]) [address] [place] [address], [address] [place] [address] WBC (Bld) [#/Vol] 11.1 10*3/uL High 4.0-11.0 [facility] Comment on above: Performed By: #### C BCA, CMP, 1988-5, FEPR, 2276-4, 2284-8, 64504-9, 213-9, 10813-1, 79987-5, 5130-0, 38464-6, 82053-2, 45267-9, 3357-1, 8092-9, 60059-2, 26664-5, 58705-9, 90097-9, 72168-7 #### [facility] ([id number]) [address] [place] [address], [address] [place] [address] CBC auto differentialon 08-27 Basophils (Bld) [#/Vol] 0.0 10*3/uL [facility] Basophils/100 WBC (Bld) 0.2 % [facility] Eosinophils (Bld) [#/Vol] 0.0 10*3/uL [facility] Eosinophils/100 WBC (Bld) 0.0 % [facility] Erythrocyte distribution width (RBC) [Ratio] 14.4 % 11.5 - 15.0 % [facility] Hematocrit (Bld) [Volume fraction] 27.8 % Low 35 - 47 % [facility] Hemoglobin (Bld) [Mass/Vol] 9.1 g/dL Low 11.7 - 15.5 g/dL [facility] Interpretation and review of laboratory results Abnormal [facility] Lymphocytes (Bld) [#/Vol] 0.4 10*3/uL Low [facility] Lymphocytes/100 WBC (Bld) 3.3 % [facility] MCH (RBC) [Entitic mass] 27.8 pg 27 - 34 pg [facility] MCHC (RBC) [Mass/Vol] 32.7 g/dL 32 - 36 g/dL P [facility] MCV (RBC) [Entitic vol] 85 fL 80 - 100 fL [facility] Monocytes (Bld) [#/Vol] 0.1 10*3/uL [facility] Monocytes/100 WBC (Bld) 1.0 % [facility] Neutrophils (Bld) [#/Vol] 11.5 10*3/uL High [facility] Neutrophils/100 WBC (Bld) 95.5 % [facility] Platelet mean volume (Bld) [Entitic vol] 6.2 fL Low 7 - 12 fL [facility] Platelets (Bld) [#/Vol] 924 10*3/uL High [facility] RBC (Bld) [#/Vol] 3.27 10*6/uL Low [facility] WBC corrected for nucl RBC Auto (Bld) [#/Vol] 12.1 High [facility] Basophils (Bld) [#/Vol] 0.2 10*3/uL [facility] Basophils/100 WBC (Bld) 2.1 % [facility] Eosinophils (Bld) [#/Vol] 0.0 10*3/uL [facility] Eosinophils/100 WBC (Bld) 0.0 % [facility] Erythrocyte distribution width (RBC) [Ratio] 14.6 % 11.5 - 15.0 % [facility] Hematocrit (Bld) [Volume fraction] 26.2 % Low 35 - 47 % [facility] Hemoglobin (Bld) [Mass/Vol] 8.6 g/dL Low 11.7 - 15.5 g/dL [facility] Interpretation and review of laboratory results Abnormal [facility] Lymphocytes (Bld) [#/Vol] 0.4 10*3/uL Low [facility] Lymphocytes/100 WBC (Bld) 3.6 % [facility] MCH (RBC) [Entitic mass] 28.1 pg 27 - 34 pg [facility] MCHC (RBC) [Mass/Vol] 32.9 g/dL 32 - 36 g/dL P [facility] MCV (RBC) [Entitic vol] 85 fL 80 - 100 fL [facility] Monocytes (Bld) [#/Vol] 0.1 10*3/uL [facility] Monocytes/100 WBC (Bld) 1.0 % P [facility] Neutrophils (Bld) [#/Vol] 10.4 10*3/uL High [facility] Neutrophils/100 WBC (Bld) 93.3 % [facility] Platelet mean volume (Bld) [Entitic vol] 6.3 fL Low 7 - 12 fL [facility] Platelets (Bld) [#/Vol] 917 10*3/uL High [facility] RBC (Bld) [#/Vol] 3.07 10*6/uL Low [facility] WBC corrected for nucl RBC Auto (Bld) [#/Vol] 11.1 High [facility] COMPREHENSIVE METABOLIC PANE Cole 09-23-2023 Albumin [Mass/Vol] 3.0 g/dL Low 3.2-5.3 [facility] Comment on above: Performed By: #### C BCA, CMP, 1987-12, FEPR, 2275-4, 4-8, 94695-0, 2131-9, 52798-1, 44976-9, 5130-0, 99287-0, 11784-9, 58318-3, 3357-1, 8092-9, 62758-6, 25029-2, 79860-6, 21748-6, 43191-3 #### [facility] ([id number]) [address] [facility], [address] [place] [address] ALP [Catalytic activity/Vol] 227 U/L High 39-130 [facility] Comment on above: Performed By: #### C BCA, CMP, 1987-12, FEPR, 2276-4, 2284-8, 88475-5, 2-9, 62350-4, 75468-6, 5130-0, 45108-0, 36330-9, 14664-8, 3357-1, 8092-9, 31947-4, 50144-7, 74336-1, 04491-8, 71633-1 #### [facility] ([id number]) [address], [address] [place] [address] ALT [Catalytic activity/Vol] 11 U/L Normal 0-31 [facility] Comment on above: Performed By: #### C BCA, CMP, 1987-12, FEPR, 2276-4, 2284-8, 30448-5, 2132-9, 31009-1, 80693-4, 5130-0, 34893-9, 74865-9, 25591-9, 3357-1, 8092-9, 06832-0, 38121-4, 92979-0, 88878-7, 39720-8 #### [facility] ([id number]) [address] [place] [address], [address] [place] [address] Anion gap [Moles/Vol] 13 mmol/L Normal 5-15 [facility] Comment on above: Performed By: #### C BCA, CMP, 1987-12, FEPR, 2276-4, 2284-8, 02322-3, 2132-9, 70726-1, 07464-3, 5130-0, 66570-1, 63127-2, 96499-3, 3357-1, 8092-9, 51643-7, 79997-7, 59544-2, 24525-7, 78986-7 #### [facility] ([id number]) [address] [facility], [address] [place] [address] AST [Catalytic activity/Vol] 12 U/L Normal 0-41 [facility] Comment on above: Performed By: #### C BCA, CMP, 1987-12, FEPR, 2276-4, 2284-8, 27025-4, 2132-9, 44800-5, 26605-5, 5130-0, 79137-4, 01036-4, 45400-6, 3357-1, 8092-9, 44061-0, 73977-5, 98464-5, 51426-4, 74959-1 #### [facility] ([id number]) [address], [address] [place] [address] Bilirubin [Mass/Vol] 0.6 mg/dL Normal 0.3-1.2 [facility] Comment on above: Performed By: #### C BCA, CMP, 1987-12, FEPR, 2276-4, 2284-8, 35673-5, 2132-9, 72694-5, 88181-4, 5130-0, 00424-9, 13256-2, 69089-5, 3357-1, 8092-9, 68105-4, 02206-4, 27466-9, 72661-9, 12358-2 #### [facility] ([id number]) [address] [facility], [address] [place] [address] Calcium [Mass/Vol] 8.6 mg/dL Normal 8.5-10.5 [facility] Comment on above: Performed By: #### C BCA, CMP, 1987-12, FEPR, 2275-4, 2284-8, 63849-7, 2132-9, 81335-1, 15953-5, 5130-0, 98189-6, 73534-4, 29983-9, 3357-1, 8092-9, 58664-5, 99976-1, 58606-9, 55438-8, 09309-9 #### [facility] ([id number]) [address], [address] [place] [address] Chloride [Moles/Vol] 101 mmol/L Normal 98-109 [facility] Comment on above: Performed By: #### C BCA, CMP, 1987-12, FEPR, 2276-4, 2284-8, 98175-8, 2132-9, 92081-0, 72066-9, 5130-0, 89373-2, 05005-5, 93760-4, 3357-1, 8092-9, 31390-2, 03997-6, 17925-2, 34495-4, 47981-9 #### [facility] ([id number]) [address] [facility], [address] [address] CO2 [Moles/Vol] 25 mmol/L Normal 22-32 [facility] Comment on above: Performed By: #### C SHARATH, KELVIN, 1987-12, FEPR, 6-4, 2284-8, 53104-0, 2132-9, 66108-4, 01292-4, 5130-0, 23156-9, 84918-8, 52446-2, 3357-1, 8092-9, 81641-3, 91588-1, 09681-0, 50402-8, 36069-7 #### [facility] ([id number]) [address] [facility], [address] [address] Creatinine [Mass/Vol] 0.49 mg/dL Normal 0.40-1.00 [facility] Comment on above: Result Comment: METH OD TRACEABLE TO IDMS STANDARD Performed By: #### C KELVIN EARLY, 1987-12, FEPR, 6-4, 2284-8, 24781-1, 2132-9, 96804-9, 32271-7, 5130-0, 36646-4, 70994-6, 92404-0, 3357-1, 8092-9, 22059-6, 97764-8, 83237-6, 68246-5, 15526-8 #### [facility] ([id number]) [address] [address] eGFR (CKD-EPI) NON-RACE DEPENDENT >90 Normal >59 [facility] Comment on above: Result Comment: Reported eGFR is based on the CKD-EPI 2020 equation that does not use a race coefficient. Performed By: #### C KELVIN EARLY, 1987-12, FEPR, 2276-4, 2284-8, 21644-9, 2132-9, 20562-1, 35702-9, 5130-0, 96733-9, 89022-6, 73389-4, 3357-1, 8092-9, 67633-4, 98486-9, 27217-8, 90123-8, 48324-8 #### [facility] ([id number]) [address], [address] [place] [address] Glucose [Mass/Vol] 141 mg/dL High 65-99 [facility] Comment on above: Performed By: #### C BCA, CMP, 1987-12, FEPR, 227-4, 2284-8, 43073-6, 2132-9, 03854-2, 70260-9, 5130-0, 33036-8, 55782-5, 52621-5, 3357-1, 8092-9, 37059-2, 41258-2, 64106-7, 21391-6, 55274-5 #### [facility] ([id number]) [address] [facility], [address] [place] [address] Potassium [Moles/Vol] 3.7 mmol/L Normal 3.5-5.0 [facility] Comment on above: Performed By: #### C BCA, CMP, 1987-12, FEPR, 6-4, 2284-8, 95623-8, 2132-9, 68884-3, 93596-8, 5130-0, 97949-1, 28637-1, 58380-7, 3357-1, 8092-9, 12505-5, 85546-7, 22286-6, 34478-7, 61272-4 #### [facility] ([id number]) [address], [address] [place] [address] Protein [Mass/Vol] 6.9 g/dL Normal 6.0-8.0 [facility] Comment on above: Performed By: #### C BCA, CMP, 1987-12, FEPR, 2276-4, 2284-8, 33457-7, 2132-9, 80158-1, 78859-2, 5130-0, 80483-0, 59667-7, 96482-3, 3357-1, 8092-9, 74164-4, 07714-1, 36967-8, 30445-5, 36625-7 #### [facility] ([id number]) [address] [place] [address], [address] [place] [address] Sodium [Moles/Vol] 139 mmol/L Normal 134-146 [facility] Comment on above: Performed By: #### C BCA, CMP, 1987-12, FEPR, 227-4, 2284-8, 95333-8, 2132-9, 51316-4, 51790-4, 5130-0, 17777-9, 48916-7, 65051-0, 3357-1, 8092-9, 34618-9, 06284-3, 75396-4, 69074-5, 29603-9 #### [facility] ([id number]) [address] [place] [address], [address] [place] [address] Urea nitrogen [Mass/Vol] 14 mg/dL Normal 5-27 [facility] Comment on above: Performed By: #### C BCA, CMP, 1987-12, FEPR, 2275-4, 2284-8, 84143-9, 2132-9, 71039-5, 19430-8, 5130-0, 22392-9, 78456-2, 76300-7, 3357-1, 8092-9, 91114-1, 19358-2, 37429-5, 22584-1, 28434-0 #### [facility] ([id number]) [address] [place] [address], [address] [place] [address] CRP [Mass/Vol]on 09-23-2023 C REACTIVE PROTEIN 13.3 mg/dL High 0.000-0.744 [facility] Comment on above: Performed By: #### C SHARATH, CMP, 1987-12, FEPR, 2275-4, 2284-8, 92227-8, 2132-9, 25101-9, 88032-0, 5130-0, 38940-6, 96090-8, 13807-7, 3357-1, 8092-9, 91070-2, 76962-1, 04261-7, 39148-0, 35575-2 #### [facility] ([id number]) [address] [facility], [address] [place] [address] Centromere ABon 09-23-2023 Centromere protein B Ab Ql (S) High [facility] Comment on above: CLIA ID [id number] Centromere protein B Ab Ql ( S)on 09-23-2023 Interpretation and review of laboratory results Abnormal [facility] CENTROMERE ANTIBODY >8.0 High <1.0 [facility] Comment on above: Performed By: #### C SHARATH, KELVIN, 1987-12, FEPR, 2275-4, 2284-8, 63279-0, 2132-9, 83094-1, 11880-0, 5130-0, 86575-7, 62309-3, 02667-7, 3357-1, 8092-9, 93063-2, 31360-1, 43311-1, 42547-4, 29088-7 #### [facility] ([id number]) [address] [place] [address], [address] [place] [address] Chromatin Ab Qlon 09-23-2023 CHROMATIN AB IGG 0.4 AI Normal <1.0 [facility] Comment on above: Performed By: #### C SHARATH, CMP, 1987-12, FEPR, 2275-4, 2284-8, 34603-0, 2132-9, 42527-9, 08697-0, 5130-0, 96299-8, 42250-9, 28132-3, 3357-1, 8092-9, 44760-1, 55218-9, 84841-6, 55061-7, 23209-3 #### [facility] ([id number]) [address] [place] [address], [address] [place] [address] Clinical Pathologyon 024 Clinical Pathology Normal [facility] Comment on above: Result Comment: [facility] [address] [place] [address] Clinical Pathology Report Patient Name:JOSE DAVID:1945 (Age: 78)Gender:FTaken:4Reported:09/27/2023hysician(s):Olga Pan M.D. ([phone])Copy To: Rec. #:[id number]: #[id number] Final Pathologic Diagnosis Hypoalbuminemia with increase in acute phase reactants. No monoclonal bands identified. Report Electronically Signed Out df/4Dkevin Bains MD [facility] [place] [address], License number: [id number]. Clinical History E53.8, H53.8, R29.90. SERUM PROTEIN ELECTROPHORESIS SAMPLE NO: [id number] ELECTROPHORETIC FRACTION CONCENTRATIONS (g/dL) PATIENT REFERENCE RANGE Albumin 2.5 L 3.4 - 5.3 Alpha-1 globulin 0.6 H 0.1 - 0.4 Alpha-2 globulin 1.2 H 0.4 - 1.1 Beta globulin 0.8 0.5 - 1.2 Gamma globulin 1.0 0.5 - 1.6 Total protein 6.1 6.0 - 8.0 (Electrophoretic gels and densitometric tracings on file in lab.) SERUM IEP IMMUNOGLOBULIN LEVELS (mg/dL): IgG : 992 IgA : 180 IgM : 285 [place]: 2.91 Free Lambda: 2.38 [place]/Lambda ratio: 1.22 Specimen(s) Received 1: Serum Protein Electrophoresis 2: Serum IEP Fee Codes(s): 1; 30941-61 2; 22371-31 Clinical Pathology Blood Sme ar Reviewon 09-23-2023 Clinical Pathology Blood Smear Review Normal [facility] Comment on above: Result Comment: [facility] [address] [place] [address] Clinical Pathology Report Patient Name:JOSE DAVID:1945 (Age: 78)Gender:FTaken:09/23/2023eported:09/26/2023hysician(s):Olga Pan M.D. ([phone])Copy To: Rec. #:[id number]: #[id number] Final Pathologic Diagnosis Peripheral blood smear: Neutrophilic leukocytosis with lymphocytopenia.Thrombocytosis with moderate normocytic anemia. See comment. Comment Normocytic anemia can be secondary to blood loss, autoimmune disease, chronic disease, etc. The above findings are consistent with thrombocytosis and neutrophilia. Further correlation is suggested for definitive diagnosis (reactive versus primary thrombocytosis): Thrombopoietin level, acute phase reactant such as CRP, ESR, fibrinogen levels etc. JAK2 mutation and other molecular test might be helpful to rule out primary thrombocytosis. Clinical correlation is recommended. Report Electronically Signed Out hn/09/26/2023Og Martinez M.D. [place] [address], License number: [id number]. Clinical History R29.9. BLOOD SMEAR EVALUATION CBC (09/23/2023 0818): WBC = 12.1 X10E9/L; HGB = 9.1 g/dL; HCT = 27.8%; MCV = 85 fL; PLT = 924 X10E9/L OTHER LAB DATA: Noncontributory. BLOOD SMEAR: Leukocytes: Neutrophilic leukocytosis with cytotoxic changes and lymphocytopenia. Erythrocytes: Moderate normocytic normochromic anemia. Platelets: Thrombocytosis. Specimen(s) Received Blood Smear Review Fee Codes(s): 1; 67227 Cobalamin (Vitamin B12) [Mas s/Vol]on 09-23-2023 [facility] Comprehensive metabolic pane cole 09-23-2023 Albumin [Mass/Vol] 3.0 g/dL Low 3.2 - 5.3 g/dL [facility] ALP [Catalytic activity/Vol] 227 U/L High 39 - 130 U/L [facility] ALT No additional P-5'-P [Catalytic activity/Vol] 11 U/L 0 - 31 U/L [facility] Anion gap [Moles/Vol] 13 mmol/L 5 - 15 mmol/L [facility] AST [Catalytic activity/Vol] 12 U/L 0 - 41 U/L [facility] Bilirubin [Mass/Vol] 0.6 mg/dL 0.3 - 1 .2 mg/dL [facility] Calcium [Mass/Vol] 8.6 mg/dL 8.5 - 10. 5 mg/dL [facility] Chloride [Moles/Vol] 101 mmol/L 98 - 10 9 mmol/L [facility] CO2 [Moles/Vol] 25 mmol/L 22 - 32 mmol/L [facility] Creatinine [Mass/Vol] 0.49 mg/dL 0.40 - 1.00 mg/dL [facility] Comment on above: METHOD TRACEABLE TO [facility] STANDARD eGFR (CKD-EPI)non-race dependent - PINF [facility] Comment on above: Reported eGFR is based on the CKD-EPI 2020 equation that does not use a race coefficient. Glucose [Mass/Vol] 141 mg/dL High 65 - 99 mg/dL [facility] Potassium [Moles/Vol] 3.7 mmol/L 3.5 - 5.0 mmol/L [facility] Protein [Mass/Vol] 6.9 g/dL 6.0 - 8.0 g/dL [facility] Sodium [Moles/Vol] 139 mmol/L 134 - 146 mmol/L [facility] Urea nitrogen [Mass/Vol] 14 mg/dL 5 - 27 mg/d L [facility] DNA double strand Ab Qn (S)o n 09-23-2023 DOUBLE STRANDED DNA 1 IU/ML Normal <5 [facility] Comment on above: Result Comment: Interpretation-------- <5 Negative 5-9 Indeterminate >9 Positive Performed By: #### C SHARATH, CMP, 1987-12, FEPR, 2276-4, 2284-8, 83414-5, 2132-9, 75040-5, 65854-4, 5130-0, 35056-6, 01778-2, 61761-6, 3357-1, 8092-9, 01789-9, 17249-5, 39119-4, 51253-7, 53342-2 #### [facility] ([id number]) [address] [place] [address], [address] [place] [address] Direct Coombson 09-23-2023 Polyspecific HENRRY Negative [facility] ESR Photometric method (Bld) [Velocity]on 09-23-2023 Interpretation and review of laboratory results Abnormal [facility] ESR, ERYTHROCYTE SEDIMENTATION RATE 114 mm/h High 0-30 [facility] Comment on above: Performed By: #### C SHARATH, CMP, 1987-12, FEPR, 2276-4, 2284-8, 28716-0, 2132-9, 81661-8, 80771-5, 5130-0, 31825-8, 20779-2, 56546-3, 3357-1, 8092-9, 35001-2, 41645-7, 27152-0, 69780-9, 41849-7 #### [facility] ([id number]) [address] [place] [address], [address] [place] [address] Erythrocyte Sedimentation Ra te (ESR)on 09-23-2023 ESR Photometric method (Bld) [Velocity] 114 mm/h High 0 - 30 mm/h [facility] FERRITINon 09-23-2023 Ferritin [Mass/Vol] 478 ng/mL High 11-307 [facility] Comment on above: Performed By: #### C BCA, CMP, 1987-12, FEPR, 2276-4, 2284-8, 96138-1, 2132-9, 08144-3, 72455-7, 5130-0, 07386-4, 90472-9, 37815-3, 3357-1, 8092-9, 75210-6, 64430-7, 88663-7, 12634-1, 45205-7 #### [facility] ([id number]) [address] [facility], [address] [place] [address] FLOW CYTOMETRYon 09-23-2023 FLOW CYTOMETRY SEE SEPARATE REPORT, REVIEWED BY PATHOLOGIST Normal [facility] Comment on above: Performed By: #### C SHARATH, CMP, 1987-12, FEPR, 2275-4, 2284-8, 50285-2, 2132-9, 25388-6, 02846-7, 5130-0, 64252-1, 65417-6, 01605-4, 3357-1, 8092-9, 43733-3, 03964-9, 37964-3, 39902-0, 79001-4 #### [facility] ([id number]) [address] [place] [address], [address] [place] [address] Ferritinon 09-23-2023 Ferritin [Mass/Vol] 478 ng/mL High 11 - 307 ng/mL [facility] Ferritin [Mass/Vol]on 2023 Interpretation and review of laboratory results Abnormal [facility] Folateon 09-23-2023 Folate [Mass/Vol] 13.0 ng/mL 5.8 - PINF ng/mL [facility] Comment on above: NEW REFERENCE RANGE Folate [Mass/Vol]on 09-23-19 24 [facility] FOLIC ACID 13.0 ng/mL Normal >5.8 [facility] Comment on above: Result Comment: NEW REFERENCE RANGE Performed By: #### C BCA, CMP, 1987-12, FEPR, 2276-4, 2284-8, 24267-8, 2131-9, 00056-1, 07025-3, 5130-0, 84689-4, 30393-6, 93390-0, 3357-1, 8092-9, 65712-6, 13325-2, 95762-8, 63663-4, 92978-9 #### [facility] ([id number]) [address] [facility], [address] [place] [address] Haptoglobinon 09-23-2023 Haptoglobin Nephelometry [Mass/Vol] 613 mg/dL High 32 - 228 mg/dL [facility] Haptoglobin Nephelometry [Ma ss/Vol]on 09-23-2023 Interpretation and review of laboratory results Abnormal [facility] HAPTOGLOBIN 613 mg/dL High 32-228 [facility] Comment on above: Performed By: #### C BCA, CMP, 1988-5, FEPR, 2276-4, 2284-8, 07690-2, 9, 77327-3, 32540-6, 5130-0, 10035-6, 21305-7, 04444-5, 3357-1, 8092-9, 24284-0, 77363-5, 73791-8, 03652-7, 95103-3 #### [facility] ([id number]) [address], [address] [place] [address] Hepatitis panel, acuteon HAV IgM IA Ql Non-Reactive Non-Reactive ^Non-Reactiv e [facility] HBV core IgM IA Ql Negative Negative^ Neg ative [facility] HBV surface Ag IA Ql Negative Negativ e^Neg ative [facility] HCV Ab IA Ql Non-Reactive Non-Reactive ^Non-Reactiv e [facility] Comment on above: If recent infection suspected, recommend repeat testing (>2 months). Waqdyp-ie-qtexbn ratio is <0.80. [facility] Homocysteine [Moles/Vol]on 0 09-23-2023 HOMOCYSTEINE 9.29 mcmol/L Normal 3.36-20.44 [facility] Comment on above: Performed By: #### C BCA, CMP, 1987-12, FEPR, 2276-4, 2284-8, 53399-4, 2132-9, 04575-0, 03166-9, 5130-0, 35137-7, 59839-2, 89948-6, 3357-1, 8092-9, 08493-4, 19440-6, 35363-2, 04423-4, 75258-6 #### [facility] ([id number]) [address], [address] [place] [address] [facility] Homocysteine totalon 024 Homocysteine [Moles/Vol] 9.29 umol/L [facility] IMMUNOELECTROPHORESIS FOR TH ERAPY MONITORINGon 09-23-2023 FREE KECIA/LAMBD RATIO 1.22 Normal 0.26-1.65 [facility] Comment on above: Performed By: #### C BCA, CMP, 1987-12, FEPR, 2275-4, 4-8, 19165-6, 2131-9, 89886-7, 53915-1, 5130-0, 19913-3, 66200-9, 90651-4, 3357-1, 8092-9, 57503-0, 25935-5, 38871-8, 43123-0, 89249-7 #### [facility] ([id number]) [address], [address] [place] [address] FREE KAPPA LT CHAINS 2.91 mg/dL High 0.33-1.94 [facility] Comment on above: Performed By: #### C BCA, CMP, 1987-12, FEPR, 2275-4, 2284-8, 26720-0, 2132-9, 46047-5, 37766-8, 5130-0, 79520-5, 37917-5, 86527-5, 3357-1, 8092-9, 31080-7, 97762-7, 10262-7, 27757-8, 59518-8 #### [facility] ([id number]) [address], [address] [place] [address] FREE LAMBDA LT CHAINS 2.38 mg/dL Normal 0.57-2.63 [facility] Comment on above: Performed By: #### C BCA, CMP, 1987-12, FEPR, 2276-4, 2284-8, 79366-8, 2132-9, 74821-6, 35967-4, 5130-0, 31852-1, 36782-6, 44609-3, 3357-1, 8092-9, 02193-3, 98577-0, 10519-3, 14048-1, 09216-8 #### [facility] ([id number]) [address], [address] [place] [address] IgA [Mass/Vol] 180 mg/dL Normal 68-378 [facility] Comment on above: Performed By: #### C BCA, CMP, 1987-12, FEPR, 2275-4, 2284-8, 39151-0, 2132-9, 36370-9, 99469-3, 5130-0, 44907-2, 78187-4, 91245-4, 3357-1, 8092-9, 99393-4, 66003-6, 43503-1, 06921-5, 32344-4 #### [facility] ([id number]) [address], [address] [place] [address] IgG [Mass/Vol] 992 mg/dL Normal 635-1741 [facility] Comment on above: Performed By: #### C BCA, CMP, 1987-12, FEPR, 2275-4, 2284-8, 54898-3, 2132-9, 03200-0, 57615-9, 5130-0, 25443-4, 28864-5, 08759-0, 3357-1, 8092-9, 69700-3, 93432-1, 19431-2, 02660-0, 10638-6 #### [facility] ([id number]) [address], [address] [place] [address] IgM [Mass/Vol] 285 mg/dL High 45-281 [facility] Comment on above: Performed By: #### C BCA, CMP, 1987-12, FEPR, 2276-4, 2284-8, 26317-6, 2132-9, 21766-4, 17481-7, 5130-0, 39466-1, 49099-4, 19853-3, 3357-1, 8092-9, 87641-7, 30459-6, 80992-8, 72536-5, 77637-5 #### [facility] ([id number]) [address], [address] [place] [address] IMMUNE PROFILE INTERP SEE SEPARATE REPORT Normal [facility] Comment on above: Performed By: #### C BCA, CMP, 1987-12, FEPR, 2275-4, 2284-8, 97273-7, 2132-9, 33821-5, 26559-5, 5130-0, 59477-4, 59234-8, 95656-8, 3357-1, 8092-9, 65065-8, 40771-0, 19502-4, 73832-2, 87176-5 #### [facility] ([id number]) [address], [address] [place] [address] IRON PROFILEon 09-23-2023 Iron [Mass/Vol] 25 ug/dL Low 50-170 [facility] Comment on above: Performed By: #### C BCA, CMP, 1987-12, FEPR, 227-4, 2284-8, 35236-1, 2132-9, 32092-9, 64263-6, 5130-0, 33555-8, 62536-4, 83779-8, 3357-1, 8092-9, 22134-8, 28298-2, 01178-6, 11978-4, 48919-3 #### [facility] ([id number]) [address] [facility], [address] [place] [address] IRON BINDING 179 ug/dL Low 250-425 [facility] Comment on above: Performed By: #### C BCA, CMP, 1987-, FEPR, 2276-4, 2284-8, 58354-2, 2132-9, 33917-8, 77256-0, 5130-0, 55717-2, 26896-4, 63244-7, 3357-1, 8092-9, 10091-9, 72034-2, 04023-0, 03346-5, 95130-5 #### [facility] ([id number]) [address] [facility], [address] [place] [address] IRON SATURATION 14 % SATURATION Low 15-50 [facility] Comment on above: Performed By: #### C BCA, CMP, 1987-12, FEPR, 2276-4, 2284-8, 66424-9, 2132-9, 16332-2, 80043-3, 5130-0, 64877-4, 25076-4, 87893-8, 3357-1, 8092-9, 86375-0, 51637-4, 12781-9, 92707-4, 84473-1 #### [facility] ([id number]) [address] [facility], [address] [place] [address] Iron and TIBCon 09-23-2023 Interpretation and review of laboratory results Abnormal [facility] Iron [Mass/Vol] 25 ug/dL Low 50 - 170 ug/dL [facility] Iron binding capacity [Mass/Vol] 179 ug/dL Low 250 - 425 ug/dL [facility] Iron saturation [Mass fraction] 14 Low [facility] JAK2 gene p.[id number] Molgen Ql (Bld/Tiss)on 09-23-2023 JAK2 V617F MUTATION, BLOOD SEE COMMENTS 09/26/2023 10:21 AM Normal [facility] Comment on above: Result Comment: NOTE Test Result Flag Unit RefValue ----- JAK2 V617F Mutation Detection, B JAK2 Result see interpretation JAK2 V617F Mutation Detection, B See Note Peripheral blood, JAK2 V617F mutation analysis: Negative for JAK2 V617F. A negative [id number] test result does not exclude the possibility of a myeloproliferative neoplasm (MPN). If clinical suspicion is high for primary myelofibrosis (PMF) or essential thrombocythemia (ET), consider additional testing for CALR with reflex to MPL (test ID: MPNCM). If clinical suspicion is high for polycythemia vera, the test JAK2 Exon 12 and Other Non-V617F Mutational Detection (test ID: JAKXB or JAKXM) could be considered. Clinicopathologic correlation is recommended for a definitive diagnosis. Signing Pathologist: Emanuel Longoria M.D. ADDITIONAL INFORMATION Method summary - JAK2 V617F analysis: Quantitative, allele-specific polymerase chain reaction (PCR) assay was performed using extracted genomic DNA to evaluate for the point mutation causing JAK2 V617F. The analytic sensitivity of this assay has been determined at 0.06% (see [facility] Interpretive Handbook for method details). This test was developed and its performance characteristics determined by [facility] in a manner consistent with CLIA requirements. This test has not been cleared or approved by the U.S. Food and Drug Administration. Test Performed by: [facility] [place] [address] Bundle Breaker: Thierry Duran M.D. Ph.D.; CLIA# [id number] Performed By: #### C BCA, CMP, 1987-5, FEPR, 2276-4, 2284-8, 93160-3, 2132-9, 77032-2, 75646-6, 5130-0, 11021-5, 66770-1, 46194-3, 3357-1, 8092-9, 83028-2, 56433-2, 61921-3, 14606-6, 72677-2 #### [facility] ([id number]) [address] [place] [address], [address] [place] [address] Tiki 1 AB IGGon 09-23-2023 Anileridine Ql (U) NINF [facility] LDHon 09-23-2023 LDH [Catalytic activity/Vol] 140 U/L 100 - 235 U/L [facility] LDH [Catalytic activity/Vol] on 09-23-2023 [facility] LDH 140 U/L Normal 100-235 [facility] Comment on above: Performed By: #### C BCA, CMP, 1988-5, FEPR, 2276-4, 2284-8, 46687-6, 2132-9, 50717-4, 89161-3, 5130-0, 90687-6, 51048-1, 14329-8, 3357-1, 8092-9, 40211-6, 33833-1, 03480-5, 66377-0, 29141-9 #### [facility] ([id number]) [address] [place] [address], [address] [place] [address] Methylmalonate [Moles/Vol]on 09-23-2023 MMA QN 0.23 umol/L Normal <=0.40 [facility] Comment on above: Result Comment: NOTE This test was developed and its performance characteristics determined by [facility] [place] ([facility]). It has not been cleared or approved by the FDA. -[facility] is regulated under CLIA as qualified to perform high-complexity testing. This test is used for clinical purposes. It should not be regarded as investigational or for research. Test Performed By: [facility] [employer] [address] [place] [address] Flux Core Welder: Meño Hernandez III, M.D. CLIA #[id number] Narrative diagnostic report Molgen Yaw (Bld/Tiss) [Interp]on 09-23-2023 BCR/ABL PCR w/Reflex SEE COMMENTS 09/25/2023 04:24 PM Normal [facility] Comment on above: Result Comment: NOTE Test Result Flag Unit RefValue ----- BCR/ABL1 Reflex, Qual/Quant Specimen Type EDTA WHOLE BLOOD BCR/ABL1 Reflex Result see interpretation Interpretation See Note Peripheral blood, BCR/ABL1 mRNA analysis, qualitative: Negative. No BCR/ABL1 mRNA transcripts were detected. Method summary: The presence or absence of BCR/ABL1 mRNA transcripts was evaluated using a qualitative, reverse quantitative researcher PCR-based assay. The assay detects nearly all published and theoretical BCR/ABL1 fusion forms including the common e13/e14-a2 (p210) and e1-a2 (p190) transcripts, as well as other rarer variants (e.g. e19-a2 (p230), e13/e14-a3, e1-a3, etc.). The limit of detection for this assay is 0.1%. Please contact the lab at [phone] with questions or if additional testing is required. See [employer] Test Catalog for additional method details. Signing Pathologist: Ammon Titus M.D. (Jane), Ph.D. ADDITIONAL INFORMATION This test was developed and its performance characteristics determined by [facility] in a manner consistent with CLIA requirements. This test has not been cleared or approved by the U.S. Food and Drug Administration. Test Performed by: [facility] [place] [address] Bundle Breaker: Thierry Duran M.D. Ph.D.; CLIA# [id number] Neutrophil cytoplasmic Ab IF Ql (S)on 09-23-2023 ANCA See Below Normal [facility] Comment on above: Result Comment: NOTE TEST RESULT FLAG UNIT REF.RANGE --------- C-ANCA by Immunofluorescence Negative Negative P-ANCA by Immunofluorescence Negative Negative Proteinase-3 Ab <0.2 AI <1.0 Myeloperoxidase Ab <0.2 AI <1.0 INTERPRETATION (ANCA) See below Equivocal staining seen on the ethanol (indirect immunofluorescence screen) side but negative results on follow up confirmatory testing. Anti-nuclear antibody test may be considered. Clinical correlation is required. STAFF REVIEW (ANCA) See below Reviewed by Arun Tucker, Ph.D D([facility]) This test is used as an aid in diagnosis of patients with autoimmune vasculitidies. The final interpretation should be done in conjunction with ANCA test results and clinical correlation. Test Performed By: [place] [address] Flux Core Welder: Meño Hernandez III, M.D. [facility] #[id number] No Panel Informationon 09-23 [facility] Interpretation and review of laboratory results Abnormal [facility] Nuclear Ab IA Ql (S)on 09-23 Interpretation and review of laboratory results Abnormal [facility] SILVIA Screen w/reflex Positive Abnormal NEG [facility] Comment on above: Result Comment: Testing performed using multiplex flow immunoassay. Eleven different antigens associated with systemic autoimmune diseases (dsDNA,Sm,Sm/TRUCK LEASING MANAGER,TRUCK LEASING MANAGER,Chromatin, SSA,SSB,Tiki-1,Scl70,Ribo P,Centromere B) are included in this screening test. Performed By: #### C BCA, CMP, 1988-5, FEPR, 2276-4, 2284-8, 85736-7, 2132-9, 54624-8, 20374-2, 5130-0, 07691-2, 77296-8, 60312-8, 3357-1, 8092-9, 54486-5, 12867-0, 73745-9, 59048-0, 17448-9 #### [facility] ([id number]) [address] [place] [address], [address] [place] [address] comment (Bld) [Interp]on 09-23-2023 STAFF REVIEW NOTE Normal [facility] Comment on above: Result Comment: [facility] [address] [place] [address] Clinical Pathology Report Patient Name:JOSE DAVID:1945 (Age: 78)Gender:FTaken:4Reported:09/26/2023hysician(s):Olga Pan M.D. ([phone])Copy To: Rec. #:[id number]: #[id number] Final Pathologic Diagnosis Peripheral blood smear: Neutrophilic leukocytosis with lymphocytopenia.Thrombocytosis with moderate normocytic anemia. See comment. Comment Normocytic anemia can be secondary to blood loss, autoimmune disease, chronic disease, etc. The above findings are consistent with thrombocytosis and neutrophilia. Further correlation is suggested for definitive diagnosis (reactive versus primary thrombocytosis): Thrombopoietin level, acute phase reactant such as CRP, ESR, fibrinogen levels etc. JAK2 mutation and other molecular test might be helpful to rule out primary thrombocytosis. Clinical correlation is recommended. Report Electronically Signed Out hna/09/26/2023Og Martinez M.D. [place] [address], License number: [id number]. Clinical History R29.9. BLOOD SMEAR EVALUATION CBC (09/23/2023 0818): WBC = 12.1 X10E9/L; HGB = 9.1 g/dL; HCT = 27.8%; MCV = 85 fL; PLT = 924 X10E9/L OTHER LAB DATA: Noncontributory. BLOOD SMEAR: Leukocytes: Neutrophilic leukocytosis with cytotoxic changes and lymphocytopenia. Erythrocytes: Moderate normocytic normochromic anemia. Platelets: Thrombocytosis. Specimen(s) Received Blood Smear Review Fee Codes(s): 1; 93310 Performed By: #### C SHARATH, KELVIN, 1987-12, FEPR, 2275-4, 2284-8, 49750-5, 2132-9, 30213-2, 99451-2, 5130-0, 30685-3, 21156-8, 82650-2, 3357-1, 8092-9, 71833-2, 51469-8, 56983-9, 12750-3, 18806-2 #### [facility] ([id number]) [address] [facility], [address] [place] [address] TRUCK LEASING MANAGER AB IgGon 09-23-2023 Ribonucleoprotein extractable nuclear IgG Qn (S) [facility] Comment on above: CLIA ID [id number] Rheumatoid factoron 09-23-19 Rheumatoid factor Nephelometry Qn (S) 21 High [facility] Rheumatoid factor Nephelomet ry Qn (S)on 09-23-2023 Interpretation and review of laboratory results Abnormal [facility] RHEUMATOID FACTOR 21 IU/mL High <20 [facility] Comment on above: Performed By: #### C SHARATH, KELVIN, 1987-12, FEPR, 2275-4, 4-8, 68620-6, 2-9, 19188-8, 25671-2, 5130-0, 73265-8, 15180-2, 42407-7, 3357-1, 8092-9, 38998-7, 13711-5, 75598-4, 17124-5, 38642-4 #### [facility] ([id number]) [address] [facility], [address] [place] [address] Ribonucleoprotein extractabl e nuclear IgG Qn (S)on 09-23-2023 TRUCK LEASING MANAGER ANTIBODY IGG <0.2 Normal <1.0 [facility] Comment on above: Performed By: #### C SHARATH, KELVIN, 1987-12, FEPR, 2275-4, 2284-8, 80086-2, 2131-9, 28191-7, 36941-0, 5130-0, 39745-4, 76790-1, 46338-7, 3357-1, 8092-9, 48269-8, 93485-9, 70285-4, 08816-1, 70883-6 #### [facility] ([id number]) [address] [facility], [address] [place] [address] Ribosomal P IgG Qn (S)on RIBOSOME P ANTIBODY <0.2 Normal <1.0 [facility] Comment on above: Performed By: #### C BCA, CMP, 1987-12, FEPR, 2275-4, 2284-8, 12683-1, 2131-9, 29544-8, 67500-1, 5130-0, 20600-7, 30071-6, 62305-9, 3357-1, 8092-9, 80427-5, 04041-8, 47903-6, 49016-2, 37448-0 #### [facility] ([id number]) [address] [facility], [address] [place] [address] SCL-70 extractable nuclear A b Ql (S)on 09-23-2023 SCL 70 ANTIBODY <0.2 Normal <1.0 [facility] Comment on above: Performed By: #### C BCA, CMP, 1987-12, FEPR, 6-4, 2284-8, 02517-6, 2131-9, 05759-0, 52708-8, 5130-0, 90676-4, 00990-5, 68038-4, 3357-1, 8092-9, 22277-1, 81690-0, 74351-9, 46170-5, 59451-3 #### [facility] ([id number]) [address] [facility], [address] [place] [address] SERUM PROTEIN ELECTROPHORESI Son 09-23-2023 Albumin [Mass/Vol] 2.5 g/dL Low 3.4-5.3 [facility] Comment on above: Performed By: #### C SHARATH, KELVIN, 1987-12, FEPR, 2276-4, 2284-8, 95945-9, 2132-9, 20915-5, 95307-3, 5130-0, 51871-3, 79078-8, 07328-1, 3357-1, 8092-9, 84806-5, 13960-4, 53402-5, 44568-8, 58222-1 #### [facility] ([id number]) [address], [address] [place] [address] ALPHA 1 GLOBULIN 0.6 g/dL High 0.1-0.4 [facility] Comment on above: Performed By: #### C SHARATH, [facility], 1987-12, FEPR, 6-4, 2284-8, 61813-0, 2132-9, 79694-4, 19028-1, 5130-0, 67569-6, 36373-6, 17876-5, 3357-1, 8092-9, 43179-0, 59204-7, 48361-9, 47717-4, 17312-9 #### [facility] ([id number]) [address], [address] [place] [address] ALPHA 2 GLOBULIN 1.2 g/dL High 0.4-1.1 [facility] Comment on above: Performed By: #### C SHARATH, [facility], 1987-12, FEPR, 6-4, 2284-8, 26337-1, 2132-9, 09413-2, 16076-5, 5130-0, 61004-6, 29115-3, 39847-7, 3357-1, 8092-9, 06232-4, 82218-5, 59477-1, 82950-7, 51355-0 #### [facility] ([id number]) [address], [address] [place] [address] BETA GLOBULIN 0.8 g/dL Normal 0.5-1.2 [facility] Comment on above: Performed By: #### C BCA, CMP, 1987-12, FEPR, 2276-4, 2284-8, 99777-2, 2132-9, 33127-8, 44013-9, 5130-0, 90761-0, 71910-1, 68666-4, 3357-1, 8092-9, 36259-8, 65917-8, 82235-5, 56648-4, 62198-9 #### [facility] ([id number]) [address], [address] [place] [address] GAMMA GLOBULIN 1.0 g/dL Normal 0.5-1.6 [facility] Comment on above: Performed By: #### C BCA, CMP, 1987-12, FEPR, 2276-4, 2284-8, 24515-9, 2132-9, 23600-3, 53281-4, 5130-0, 75651-3, 42043-2, 30072-5, 3357-1, 8092-9, 56623-0, 11774-4, 50377-2, 01234-5, 92537-1 #### [facility] ([id number]) [address], [address] [place] [address] PROT. ELECTROPHORESIS INTERP SEE SEPARATE REPORT Normal [facility] Comment on above: Performed By: #### C BCA, CMP, 1987-12, FEPR, 227-4, 2284-8, 02488-5, 2132-9, 62438-8, 22992-3, 5130-0, 95647-8, 99801-6, 88763-2, 3357-1, 8092-9, 41569-3, 24376-6, 40360-0, 75351-8, 65567-2 #### [facility] ([id number]) [address], [address] [place] [address] Protein [Mass/Vol] 6.1 g/dL Normal 6.0-8.0 [facility] Comment on above: Performed By: #### C SHARATH, CMP, 1987-12, FEPR, 2275-4, 4-8, 82540-0, 2131-9, 00954-2, 77879-1, 5130-0, 75525-1, 23668-6, 78095-9, 3357-1, 8092-9, 86616-2, 80993-0, 95409-4, 35204-4, 68137-2 #### [facility] ([id number]) [address] [facility], [address] [place] [address] SSA antibodyon 09-23-2023 Sjogrens syndrome-A extractable nuclear Ab Qn (S) [facility] Comment on above: CLIA ID [id number] SSB Antibodyon 09-23-2023 Sjogrens syndrome-B extractable nuclear IgG Qn (S) [facility] Comment on above: CLIA ID [id number] Scleroderma antibodyon 09-23 SCL-70 extractable nuclear Ab Ql (S) [facility] Comment on above: CLIA ID [id number] Sjogrens syndrome-A extracta ble nuclear Ab Qn (S)on 09-23-2023 SSA ANTIBODY <0.2 Normal <1.0 [facility] Comment on above: Performed By: #### C SHARATH, CMP, 1987-12, FEPR, 2275-4, 4-8, 11722-8, 2131-9, 34547-6, 55656-3, 5130-0, 21005-4, 73359-6, 78298-6, 3357-1, 8092-9, 46555-2, 82458-2, 28182-3, 66990-3, 72151-9 #### [facility] ([id number]) [address] [facility], [address] [place] [address] Sjogrens syndrome-B extracta ble nuclear IgG Qn (S)on 09-23-2023 SSB ANTIBODY <0.2 Normal <1.0 [facility] Comment on above: Performed By: #### C BCA, CMP, 1987-12, FEPR, 2276-4, 2284-8, 20698-4, 2132-9, 47926-1, 05323-8, 5130-0, 45011-3, 82631-5, 15221-0, 3357-1, 8092-9, 56229-6, 69943-6, 18085-8, 00162-2, 38825-6 #### [facility] ([id number]) [address] [facility], [address] [place] [address] Mejia extractable nuclear Ab +Ribonucleoprotein extractable nuclear IgG Qn (S)on 09-23-2023 MEJIA/TRUCK LEASING MANAGER AB IGG <0.2 Normal <1.0 [facility] Comment on above: Performed By: #### C BCA, CMP, 1987-12, FEPR, 2275-, 2283-8, 42072-3, 2-9, 57915-6, 09059-6, 5130-0, 57154-1, 58981-4, 26893-4, 3357-1, 8092-9, 88932-8, 52304-4, 04975-1, 16788-5, 21444-4 #### [facility] ([id number]) [address] [facility], [address] [place] [address] Mejia extractable nuclear Ig G Qn (S)on 09-23-2023 ANTI-MEJIA AB IGG <0.2 Normal <1.0 [facility] Comment on above: Performed By: #### C BCA, CMP, 1987-12, FEPR, 2275-4, 2284-8, 61687-0, 2132-9, 86948-0, 98158-7, 5130-0, 60880-3, 33675-3, 21618-6, 3357-1, 8092-9, 11442-6, 98080-6, 44776-5, 89450-8, 84415-0 #### [facility] ([id number]) [address] [facility] [place] [address] Mejia/TRUCK LEASING MANAGER AB IgGon 4 Mejia extractable nuclear Ab+Ribonucleoprotein extractable nuclear IgG Qn (S) ROBINF [facility] Surgical Pathologyon 024 Surgical Pathology Normal [facility] Comment on above: Result Comment: [facility] [address] [place], [place] [address] Flow Cytometry Patient Name:JOSE DAVIDAccession #:[id number]. Rec. #:[id number]:[facility] HospitalTaken:4DOB:1945 (Age: 78)Location:[facility] GEN 8 ACUTE J915Lyvmcdsu:09/23/2023Gender: FBill. Type:ToledoReported:Priority:RBilling #:[id number] Class:TTH Special Procedure OnlyPhysician(s): Charlene Chan MD Rabia Zubair, M.D. Ahmed Elsayed, MD Jihad T. Abbas, M.D. MOHAMED B ELAMIN Copy To: Specimen(s) Received Blood for Flowcytometry Status: Signed Out Interpretation Normal peripheral blood immunophenotyping study. Flow cytometric analysis of the peripheral blood leukocytes demonstrates mature hematolymphoid elements. Blasts are not increased on CD45/side scatter analysis or CD34 staining, immature cells are inconspicuous, and aberrant patterns of antigen expression are not seen. [place] on the lymphoid population demonstrates a mixed population of phenotypically unremarkable T-cells, natural killer cells, and polyclonal B-cells, without a detectable monoclonal population. Immunophenotyping antibodies tested: CD2, CD3, CD4, CD5, CD7, CD8, CD10, CD13, CD16, CD19, CD20, CD23, CD33, CD34, CD38, CD43, CD45, CD56, CD117, CD123, CD138, Key Vista, and Lambda. Immunophenotyping Comment: Immunophenotyping has been used in this diagnostic evaluation. This test was developed and its performance characteristics determined by the [facility] Clinical Laboratories Department. It has not been cleared or approved by the U.S. Food and Drug Administration. The FDA has determined that such clearance or approval is not necessary. This test is used for clinical purposes. It should not be regarded as investigational or for research. This laboratory is certified under the Clinical Laboratory Improvement Amendments of 1988 ( CLIA ) as qualified to perform high-complexity clinical testing. Electronically Signed Out ht/09/23/2023 Wm Camacho MD VITAMIN B12on 09-23-2023 Cobalamin (Vitamin B12) [Mass/Vol] 248 pg/mL Normal 180-914 [facility] Comment on above: Performed By: #### C KELVIN EARLY, 1987-12, FEPR, 2276-4, 2284-8, 50045-0, 2132-9, 82765-7, 43920-9, 5130-0, 79648-8, 20857-9, 87825-2, 3357-1, 8092-9, 49093-3, 92569-8, 30927-2, 20963-9, 12863-1 #### [facility] ([id number]) [address] [place] [address], [address] [place] [address] Vitamin B12on 09-23-2023 Cobalamin (Vitamin B12) [Mass/Vol] 248 pg/mL 180 - 914 pg/mL [facility] dRVVT/dRVVT.excess phospholi pid Coag (PPP) [Ratio]on 09-23-2023 DILUTE KORI'S VIPER VENOM Negative Normal [facility] Comment on above: Performed By: #### C SHARATH, CMP, 1987-12, FEPR, 227-4, 2284-8, 54204-4, 2132-9, 17259-0, 87623-1, 5130-0, 63259-5, 88929-3, 15810-4, 3357-1, 8092-9, 53099-9, 91062-1, 21328-0, 41772-3, 02684-7 #### [facility] ([id number]) [address] [facility], [address] [place] [address] CT LESTER WO CONon 3 CT LESTER WO CON EXAM: CT scan of the [...] by: SHANTELL GARCIA Date: 2022-12-25 08:22 Normal [facility] XR KNEE RT 4V or >on 022 [...] lateral and patellofemoral compartments where there is jiwc-he-rjed contact. 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 Electronically authenticated by: KARAN JENKINS Date: 2022-04-25 19:06 Normal [facility] Patient Educationon 09-10-19 22 Patient Education Nutrition BMI for Adults Body [...] height. This can be done either in [place]e ([place] or metric measurements. Note that charts are available to help you find your BMI quickly and easily without having to do these calculations yourself. To calculate your BMI in [place]e ([place] measurements, your health care provider will: [...] problems. ? BMI can be measured using Senegalese measurements or metric measurements. ? To interpret [...] 04/22/2005 Document Revised: 07/24/2018 Document Reviewed: 06/24/2018 [employer] Patient Education ? 2020 eOriginal. Obstetrics and Gynecology Overactive Bladder, Adult Overactive [...] A spina (more content not included)... Normal [facility] 09-10-2021 [facility] [id number] .[id number]:[address] 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 Garcia on 09/10/2021 [...] Protein Urine Dipstick: Negative (09/10/21 08:26:00) Specific [address] Urine Dipstick: 1.025 (09/10/21 08:26:00) Urine Appearance Urine Dipstick: Clear (09/10/21 08:26:00) Urine Color Urine Dipstick: Yellow (09/10/21 08:26:00) Urobilinogen Urine Dipstick: Normal 0.2-1 EU/dl (09/10/21 08:26:00) pH Urine Dipstick: 5 (09/10/21 08:26:00) Normal [facility] Comment on above: Result Comment: Elec tronically Signed By: DONY SENIOR, Gilbert Moore\.br\Date and Time Signed: 09/10/21 08:49 EST\.br\Electronically Co-Signed By: Aurora Hdz MA\.br\Date and Time Co-Signed: 09/10/21 08:46 EST Physician Orderon 09-07-2021 Physician Order [id number]:[id number] Normal [facility] Vital Signs Date Time Vital Sign Value Performing Clinician Lei santino 10-16-2023 11:040500 Body height 152.4 cm [facility] 10-16-2023 11:04-0500 Body mass index (BMI) [Ratio] 23.6 kg/m2 [facility] 10-16-2023 11:04-0500 Body weight 54.88 kg [facility] 10-16-2023 11:04-0500 Diastolic blood pressure 72 mm[Hg] [facility] 10-16-2023 11:04-0500 Heart rate 88 /min [facility] 10-16-2023 11:04-0500 SaO2% (BldA) [Mass fraction] 98 % [facility] 10-16-2023 11:04-0500 Systolic blood pressure 134 mm[Hg] [facility] 10-16-2023 09:50-0500 Diastolic blood pressure 74 mm[Hg] Mouna Bautista MD Work Phone: [facility] 10-16-2023 09:50-0500 Heart rate 72 /min Mouna Bautista MD Work Phone: [facility] 10-16-2023 09:50-0500 Systolic blood pressure 140 mm[Hg] Mouna Bautista MD Work Phone: [facility] 10-16-2023 09:49-0500 Body height 157.5 cm Mouna Bautista MD Work Phone: [facility] 10-16-2023 09:49-0500 Body mass index (BMI) [Ratio] 21.51 kg/m2 Mouna Bautista MD Work Phone: [facility] 10-16-2023 09:49-0500 Body weight 53.34 kg Mouna Bautista MD Work Phone: [facility] 10-16-2023 09:49-0500 Respiratory rate 18 /min Mouna Bautista MD Work Phone: [facility] 09-26-2023 15:31-0500 Body temperature 98.2 [degF] Bart Milian MD Work Phone: [facility] 09-26-2023 15:31-0500 Heart rate 103 /min Bart Milian MD Work Phone: [facility] 09-26-2023 15:31-0500 Respiratory rate 16 /min Bart Milian MD Work Phone: [facility] 09-26-2023 15:31-0500 SaO2% (BldA) [Mass fraction] 96 % Bart Milian MD [facility] 09-26-2023 07:20-0500 Diastolic blood pressure 84 mm[Hg] Bart Milian MD [facility] 09-26-2023 07:20-0500 Systolic blood pressure 152 mm[Hg] Bart Milian MD Work Phone: [facility] 09-24-2023 13:40-0500 Body height 157.5 cm Bart Milian MD Work Phone: [facility] 09-24-2023 13:40-0500 Body mass index (BMI) [Ratio] 21.21 kg/m2 Bart Milian MD Work Phone: [facility] [employer] [facility] 09-24-2023 13:40-0500 Body weight 52.6 kg Bart Milian MD Work Phone: [facility] Encounters Encounter Date Encounter Type Care Provider Facility Start: 10-17-2023 Telephone encounter Beronica [facility] Comment on above: Med Refill Start: 10-16-2023 End: 10-16-2023 ambulatory MOUNA BAUTISTA [facility] Work Phone: Start: 10-16-2023 End: 10-16-2023 Patient encounter procedure [facility] Work Phone: Start: 10-16-2023 End: 10-16-2023 Office outpatient visit 15 minutes Mouna Bautista MD Work Phone: [facility] Comment on above: Giant cell arteritis (CMS-HCC) (Primary Dx) Start: 09-29-2023 Telephone encounter Rosa Gaitan [facility] Comment on above: Hospital Follow-up Start: 09-27-2023 End: 09-27-2023 Evaluation and management of inpatient RICKIE STEWART [facility] Start: 09-24-2023 End: 09-27-2023 Evaluation and management of inpatient RAYAN [facility] Start: 09-24-2023 ambulatory JOHN PATEL [facility] Start: 09-24-2023 End: 09-27-2023 Evaluation and management of inpatient CARLITOS GAYPREET ILYA [facility] Start: 09-23-2023 End: 09-26-2023 [facility] Start: 09-23-2023 End: 09-26-2023 Evaluation and management of inpatient Tono Pan MD Work Phone: [facility] - GEN 8 Acute Comment on above: B12 deficiency (Prim lisa Dx); Thrombocytosis; Vision blurred; Temporal arteritis ([facility]) Start: 03-24-2023 End: 03-25-2023 ambulatory Naomy Lujan MD Facility:[facility] Start: 03-10-2023 End: 03-11-2023 ambulatory [facility] Start: 03-03-2023 End: 03-04-2023 ambulatory Na[facility] Lujan MD [facility] Start: 02-17-2023 End: 02-18-2023 ambulatory Naomy Lujan MD Facility:[facility] Start: 02-03-2023 End: 02-04-2023 ambulatory [facility] Start: 01-24-2023 End: 01-25-2023 ambulatory Na[facility] Lujan MD [facility] Start: 12-25-2022 End: 12-25-[address] PATO LYNN Facility:[facility] Start: 04-25-2022 End: 04-25-[address] CRISTOPHER BUCHANAN . Facility:[facility] Procedures Date Procedure Procedure Detail Performing Clinician Start: 10-16-2023 Follow-up visit Follow-up MOUNA BAUTISTA Start: 09-26-2023 Basic metabolic pane l calcium total Goran Thomas MD Work Phone: Start: 09-25-2023 Level i surg patholo gy gross examination only Kristel Reid MD Work Phone: Start: 09-25-2023 End: 09-25-2023 Ligation/biopsy temporal artery Kristel Reid MD Work Phone: Start: 09-24-2023 Echo tthrc r-t 2d w/wom-mode compl spec&colr d Trevin López MD Work Phone: Start: 09-24-2023 Basic metabolic pane l calcium total Goran Thomas MD Work Phone: Start: 09-24-2023 End: 09-24-2023 Mri brain brain stem w/o w/contrast material Carlitos Caraballo MD Work Phone: Start: 09-23-2023 Bcr/abl1 major break pnt qualitative/quantitative Greer Hinders IMPORT/EXPORT SPECIALIST-[employer] INSTALLER HELPER Work Phone: Start: 09-23-2023 Antihuman globulin d irect each antiserum Elton Hinders IMPORT/EXPORT SPECIALIST-[employer]ATE GLASS INSTALLER HELPER Work Phone: Start: 09-23-2023 ANCA Trevin Sandhu i, MD Work Phone: Start: 09-23-2023 Assay of haptoglobin quantitative Tono Pan MD Work Phone: Start: 09-23-2023 Beta 2 glycoprotein i antibody each Tono Pan MD Work Phone: Start: 09-23-2023 Blood count complete auto&auto difrntl wbc Bart Milian MD Work Phone: Start: 09-23-2023 CLINICAL PATHOLOGY B LOOD SMEAR REVIEW Bart Milian MD Work Phone: Start: 09-23-2023 Jak2 gene analysis [id number] variant Bart Milian MD Work Phone: Start: 09-23-2023 Antinuclear antibodies silvia Nandini Walters MD Work Phone: Start: 09-23-2023 Comprehensive metabo lic panel Nandini Walters MD Work Phone: Start: 09-23-2023 Adult depression scr eening assessment Rosa Ovalles Start: 09-23-2023 PULSE OXIMETRY, SPOT Ra ni Selena SENIOR Work Phone: Plan of Treatment Date Care Activity Detail Author Start: 10-16-2024 Adult BMI Screening Adult BMI Screening [facility] Start: 10-16-2024 Tobacco Screening Tobacco Screening [facility] Start: 09-24-2024 Adult BMI Screening Adult BMI Screening [facility] Start: 09-24-2024 Tobacco Screening Tobacco Screening [facility] Start: 09-23-2024 Depression Screening Depression Screening [facility] Start: 01-15-2024 End: 01-15-2024 Patient encounter procedure 01/15/2024 11:00 AM EDT Office Visit [facility] [address] [place] [address] Mouna Bautista MD [address] [address] [facility] Start: 12-05-2023 End: 12-05-2023 Patient encounter procedure 12/05/2023 10:15 AM EDT Office Visit [facility] [place] [phone] Darci Santana MD [address] [place] [address] [facility] Start: 11-06-2023 End: 11-06-2023 Patient encounter procedure 11/06/2023 3:30 PM EDT Office Visit Adelaida Keane [facility] - Medical Oncology [address] [place] [phone] Adam Anna MD [address] [place] [address] [address] [place] [address] Adelaida Keane [facility] Start: 10-16-2023 End: 10-16-2023 Patient encounter procedure 10/16/2023 9:10 AM EST Office Visit [facility] [address] [place] [address] Mouna Bautista MD [address], [address] [address] [facility] Start: 04-25-2023 Influenza vaccination [facility] Vaccine [facility] Start: 2011 Fall Risk Screening Fall [facility] Screening [facility] Start: 1996 Administration of varicella zoster vaccine Zoster (Shingles) Vacc[facility] (1 [facility] 2) [facility] Start: 1965 DTaP,Tdap and Td Vaccines (1 - Tdap) DTaP,Tdap and Td Vaccines (1 - Tdap) [facility] Start: 1945 Medicare Annual Wellness Visit Medicare Annual Wellness [facility] End: 09-26-2024 Basic metabolic 2000 panel - Serum or Plasma Basic Metabolic Panel Lab Routine Vision blurred 1 Occurrences starting 09/26/2023 until 09/26/2024 [facility] Comment on above: 1 Occurrences starting 09/26/2023 until 09/26/2024 End: 09-26-2024 CBC W Auto Differential panel - Blood CBC auto differential Lab Routine Thrombocytosis 1 Occurrences starting 09/26/2023 until 09/26/2024 [facility] Comment on above: 1 Occurrences starting 09/26/2023 until 09/26/2024 End: 09-23-2023 Flow cytometry blood only [employer] Work Phone: Comment on above: Once for 1 Occurrences starting 09/23/19 24 until 09/23/2023 Immunoelectrophoresi s for Therapy Monitoring Immunoelectrophoresis for Therapy Monitoring Lab Routine 09/23/2023 12:56 PM EST [employer] Work Phone: Methylmalonate [Moles/volume] in Serum or Plasma Methylmalonic acid screen Lab Routine 09/23/2023 12:57 PM EST [employer] End: 09-23-2023 Methylmalonic acid screen Methylmalonic acid screen Lab Routine Once for 1 Occurrences starting 09/23/2023 until 09/23/2023 [facility] Work Phone: Comment on above: Once for 1 Occurrences starting 09/23/19 until 09/23/2023 Protein electrophore sis, serum Protein electrophoresis, serum Lab Routine 09/23/2023 12:56 PM EST [employer] Payers Date Payer Category Payer Medicare [id number] 2022 Medicare 2016 Private Health Insurance [id number] 1959 Medicare [id number] 1945 Unknown [id number] 2.16.84 0.1.303072.3.579.2.593 1945 Unknown [id number] 2.16.84 0.1.497006.3.579.2.593 1945 Unknown [id number] 2.16. 840.1.499421.3.579.2.196 1945 Unknown [id number] 2.16. 840.1.760442.3.579.2.196 1945 Unknown [id number] 2.16. 840.1.959752.3.579.2.196 1945 Unknown [id number] 2.16. 840.1.671929.3.579.2.196 1945 Unknown [id number] 2.16. 840.1.669436.3.579.2.196 1945 Unknown [id number] 2.16. 840.1.508196.3.579.2.196 1945 Unknown [id number] 2.16.8 40.1.164283.3.579.2.1286 1945 Unknown [id number] 2.16.8 40.1.573784.3.579.2.1286 1945 Unknown [id number] 2.16.8 40.1.962798.3.579.2.1286 1945 Unknown [id number] 2.16.8 40.1.935999.3.579.2.1286 1946 Unknown [id number] 2.16.8 40.1.565746.3.579.2.1286 1945 Unknown [id number] 2.16.8 40.1.203276.3.579.2.1286 1945 Unknown [id number] 2.16.8 40.1.552046.3.579.2.1286 1946 Unknown [id number] 2.16.8 40.1.202248.3.579.2.1286 1945 Unknown [id number] 2.16.8 40.1.050059.3.579.2.1286 1945 Unknown [id number] 2.16.8 40.1.317388.3.579.2.1286 1945 Unknown [id number] 2.16.8 40.1.911027.3.579.2.1286 1945 Unknown [id number] 2.16.8 40.1.746173.3.579.2.1286 Self-pay Self Pay [id number] Social History Date Type Detail Facility Start: 09-23-2023 Tobacco smoking stat [facility] Never smoked tobacco [facility] Start: 09-23-2023 Tobacco use and exposure Smoke less tobacco non-user [facility] Start: 09-25-2023 End: 10-16-2023 Alcohol intake Lifetime non-drinker (finding) [facility] Start: 10-05-2020 End: 09-23-2023 History of Social function [facility] Start: 10-05-2020 End: 09-23-2023 Alcohol Use Disorder Identification Test - Consumption [AUDIT-C] [facility] How often to you hav e a drink containing alcohol? Never [facility] How many standard dr inks containing alcohol do you have on a typical day? Patient does not drink [facility] Start: 1945 Sex Assigned At Not on file [facility] [employer] [facility] Start: 10-16-2023 Tobacco smoking stat us NHIS Ex-smoker (finding) [facility] Start: 1945 Sex Assigned At Female [facility] Goals Date Patient Goal Desired Activity /State Personal health goal Comment on above: Formatting of this n ote might be different from the original. Evaluation of progress towards goal: Home with dtr, self care Clinical Notes 09-23-2023 to 10-17-2023 Telephone Encounter - Beronica Taylor - 10/17/2023 11:39 AM ESTTelephone Encounter - Shadia Javid - 10/17/2023 11:39 AM ESTTelephone Encounter - Beronica Taylor - 10/17/2023 11:39 AM EST Note Date & Type Note Facility 10-17-2023 Miscellaneous Notes Patients daughterMalinda said that the patient will need refills before her appointment on 12/05/2023 Medication Refill request: Medication Name and Strength:vitamin B12 1,000 mcg Current dose & Frequency: Take 1 tablet daily actually taking - not what is listed on the prescription label 30 day or 90 day supply preferred:30 Pharmacy Name: [id number] - [place], [place] - If already on preferred pharmacy list - name only If new pharmacy - specify address & phone number Request was made by: patients Malinda cuadra Medication Refill request: Medication Name and Strength: predniSONE (DELTASONE) 20 mg tablet Current dose & Frequency:: Take 3 tablets (60 mg total) by mouth daily with breakfast actually taking - not what is listed on the prescription label 30 day or 90 day supply preferred:30 Pharmacy Name: [id number] - [place], [place] - If already on preferred pharmacy list - name only If new pharmacy - specify address & phone number Medication Refill request: Medication Name and Strength:aspirin 81 mg Current dose & Frequency:Take 1 tablet (81 mg total) by mouth in the morning actually taking - not what is listed on the prescription label 30 day or 90 day supply preferred: 30 Pharmacy Name: [id number] - [place], [place] - If already on preferred pharmacy list - name only If new pharmacy - specify address & phone number I have attempted to contact this patient by phone with the following results: left detailed message regarding that since patient has not been seen in clinic PCP or the provider that prescribed medication will have to fill. documented [facility] this encounter [facility] Telephone encounter Note Patients Malinda cuadra said that the patient will need refills before her appointment on 12/05/2023 Medication Refill request: Medication Name and Strength:vitamin B12 1,000 mcg Current dose & Frequency: Take 1 tablet daily actually taking - not what is listed on the prescription label 30 day or 90 day supply preferred:30 Pharmacy Name: [id number] - [place], [place] - If already on preferred pharmacy list - name only If new pharmacy - specify address & phone number Request was made by: patients Malinda cuadra Medication Refill request: Medication Name and Strength: predniSONE (DELTASONE) 20 mg tablet Current dose & Frequency:: Take 3 tablets (60 mg total) by mouth daily with breakfast actually taking - not what is listed on the prescription label 30 day or 90 day supply preferred:30 Pharmacy Name: [id number] - [place], [place] - If already on preferred pharmacy list - name only If new pharmacy - specify address & phone number Medication Refill request: Medication Name and Strength:aspirin 81 mg Current dose & Frequency:Take 1 tablet (81 mg total) by mouth in the morning actually taking - not what is listed on the prescription label 30 day or 90 day supply preferred: 30 Pharmacy Name: [id number] - [place], [place] - If already on preferred pharmacy list - name only If new pharmacy - specify address & phone number [facility]23 Telephone encounter Note I have attempted to contact this patient by phone with the following results: left detailed message regarding that since patient has not been seen in clinic PCP or the provider that prescribed medication will have to fill. [facility] 10-16-2023 History of Present illness Narrative Images from the original note were not included. [facility] [address] [facility] [address] Subjective: Patient ID: Jose David is a 78 y.o. female. Chief Complaint Chief Complaint Patient presents with Follow-up Hospital discharge follow up. Recent TAB. History of Present Illness: This is a pleasant 78-year-old lady with Vision loss and bilateral temporal artery biopsy she is here to discuss pathology results that showed giant cell arteritis. She has been on steroids. She is following up with Dr. Romero castellon. Patient Active Problem List Diagnosis Vision blurred Stroke-like symptoms Giant cell arteritis ([facility]) Current Outpatient Medications: acetaminophen (TYLENOL EXTRA STRENGTH) 500 mg tablet, Take 1 tablet (500 mg total) by mouth every 6 (six) hours as needed for pain., Disp: , Rfl: aspirin 81 mg, Take 1 tablet (81 mg total) by mouth in the morning for 30 days., Disp: 30 tablet, Rfl: 0 cyanocobalamin 1000 MCG tablet, Take 1 tablet (1,000 mcg total) by mouth in the morning for 30 days., Disp: 30 tablet, Rfl: 0 predniSONE (DELTASONE) 20 mg tablet, Take 3 tablets (60 mg total) by mouth daily with breakfast for 30 days., Disp: 90 tablet, Rfl: 0 sulfamethoxazole-trimethoprim (BACTRIM DS) 800-160 mg per tablet, Take 1 tablet by mouth 3 (three) times a week for 30 days., Disp: 12 tablet, Rfl: 0 The following portions of the patient's history were reviewed and updated as appropriate: allergies, current medications, past family history, past medical history, past social history, past surgical history and problem list. Review of Systems: Review of Systems All other systems reviewed and are negative. Objective: Vitals BP 140/74 (BP Site: Right Arm, BP Postition: Sitting, BP CUFF SIZE: M (9-13 inches)) Pulse 72 Resp 18 Ht 157.5 cm (5' 2 ) Wt 53.3 kg (117 lb 9.6 oz) BMI 21.51 kg/m Physical Exam Physical Exam Constitutional: Appearance: Normal appearance. She is normal weight. HENT: Head: Normocephalic and atraumatic. Mouth/Throat: Mouth: Mucous membranes are dry. Eyes: Comments: Vision loss of bilateral eyes Cardiovascular: Rate and Rhythm: Normal rate. Pulmonary: Effort: Pulmonary effort is normal. Breath sounds: Normal breath sounds. Musculoskeletal: Cervical back: Normal range of motion and neck supple. Skin: General: Skin is warm and dry. Neurological: Mental Status: She is alert and oriented to person, place, and time. Psychiatric: Mood and Affect: Mood normal. Behavior: Behavior normal. Thought Content: Thought content normal. Judgment: Judgment normal. Studies Reviewed Pathology results showing positive for giant cell arteritis in bilateral temporal arteries Assesment: Jose was seen today for follow-up. Diagnoses and all orders for this visit: Giant cell arteritis ([facility]) Plan Plan: Referral to rheumatology for management of temporal arteritis. Continue steroids in the meanwhile Mouna Bautista MD documented in this encounter [facility] 09-29-2023 Miscellaneous Notes Please ask the following questions to the new patient that you are schedulin. IS THIS DUE TO AN ACCIDENT? - No 2. IS THIS WORKER'S COMP? - No 3. WHAT INSURANCE? - [employer] MEDICARE UHC MEDICARE ADVANTAGE O 4. HAVE YOU EVER BEEN SEEN BY A NEUROLOGIST BEFORE? IF YES, WHO AND WHEN? IS THIS A SECOND OPINION? - Patient saw Dr. Byrne at [facility] Hospital Visit 09/23-08/26/2023 5. PATIENT IS SCHEDULED ON/WITH: - 12/05/2023 at 10:[address] Santana [facility] encounter [facility] Telephone encounter Note Please ask the following questions to the new patient that you are schedulin. IS THIS DUE TO AN ACCIDENT? - No 2. IS THIS WORKER'S COMP? - No 3. WHAT INSURANCE? - [employer] MEDICARE UHC MEDICARE ADVANTAGE HMO 4. HAVE YOU EVER BEEN SEEN BY A NEUROLOGIST BEFORE? IF YES, WHO AND WHEN? IS THIS A SECOND OPINION? - Patient saw Dr. Byrne at [facility] Hospital Visit 09/23-08/26/2023 5. PATIENT IS SCHEDULED ON/WITH: - 12/05/2023 at 10:[address] Santana [facility] 09-26-2023 Nurse Note Patient alert and oriented. IV and telemetry discontinued. All discharge instructions have been reviewed and are understood by the patient and daughter. Patient left the unit via wheelchair with all of their belongings and in no distress. Patient discharged home. [facility] 09-26-2023 Nurse Note Patient alert and oriented. IV and telemetry discontinued. All discharge instructions have been reviewed and are understood by the patient and daughter. Patient left the unit via wheelchair with all of their belongings and in no distress. Patient discharged home. documented in this encounter [facility] 09-26-2023 Hospital course Narrative Images from the original note were not included. [facility] Discharge Summary Patient's Name: Jose David Date of : 1945 Age: 78 yrs Gender: female PCP: Patient Care Team: John Patel DO as PCP - General DATE OF ADMISSION: 09/23/2023 DATE OF DISCHARGE: 09/26/2023 DISCHARGE DIAGNOSES: Active Hospital Problems Diagnosis Date Noted Vision blurred 09/23/2023 Stroke-like symptoms 09/23/2023 Resolved Problems No resolved problems to display. CONSULTANTS: Consulting Providers Provider Service Specialty Jose Shaw MD -- Hematology MD Raissa Alvarado Ophthalmology Ophthalmology MD Raissa Rogers Vascular Surgery Vascular Surgery Jt Jasso MD -- Rheumatology Era Byrne MD -- Neurology PROCEDURES: Bilateral temporal artery biopsy with Dr. Reid 09/25/23 Things needing follow up: - Temporal biopsy results - DEXA scan - CBC and BMP in 1 week (results to be sent to PCP) CBC to follow on thrombocytosis BMP to be monitored periodically while on Bactrim - ESR/ CRP at least monthly to direct steroid treatment - Thrombocytosis work up that is still pending at the time of the discharge: peripheral smear, flow cytometry, [facility] Hospital Course Jose Davidson a 78 y.o.female with no significant past medical history, she presented to the hospital with bilateral vision loss. Patient started to notice blurry vision in her left eye 09/19, she was evaluated by Ophthalmology outpatient who referred her to eye center in [place]. Over the weekend her left eye vision significantly deteriorated to a point where she could no longer see. On 09/22, she started developing vision loss in her right eye. She visited the eye center who sent her to ER right away. Patient initially presented to the [facility] ER, she was given Solu-Medrol 250 mg IV once and transferred to [facility] [facility] for further workup. 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 Patient was started on Solu-Medrol 1 g daily for 3 doses with no significant improvement in her vision loss. Patient underwent temporal artery biopsy 09/25/23 with vascular, pathology still pending at the time of the discharge. She was transitioned to prednisone 60 mg, plan is to follow-up outpatient with Rheumatology in 2-3 weeks to monitor inflammatory markers and clinical improvement and eventually taper steroids. Neurology were also consulted, other workup including MRI of the brain and the orbits were negative for stroke and demyelination. 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 Antiphospholipid panel was also negative, TTE was normal. Folic acid and B12 were normal. During hospitalization patient was found to have thrombocytosis with platelets in the 900K. Etiology is unclear at this time. Hematology was consulted, TONIA 2 and BCR-ABL mutations were negative. Peripheral smear is still pending at the time of the discharge. Hematology will arrange for follow-up, possible further workup for PMN. A script for CBC was provided. I will start patient on aspirin on discharge in the setting of thrombocytosis and to reduce long-term vascular risks of GCA Patient will need to have a DEXA scan in the near future as she is anticipated to be on steroids long-term. Patient was started on Bactrim by Rheumatology for PCP prophylaxis, script for BMP was provided. Primary care physician to monitor potassium and kidney function while on Bactrim. Discharge Medications: Medication List START taking these medications Instructions Last Dose Given Next Dose Due aspirin 81 mg Take 1 tablet (81 mg total) by mouth in the morning for 30 days. cyanocobalamin 1000 MCG tablet Start taking on: September 27, 2023 Take 1 tablet (1,000 mcg total) by mouth in the morning for 30 days. predniSONE 20 mg tablet Commonly known as: DELTASONE Start taking on: September 27, 2023 Take 3 tablets (60 mg total) by mouth daily with breakfast for 30 days. sulfamethoxazole-trimethoprim 800-160 mg per tablet Commonly known as: BACTRIM DS Start taking on: September 29, 2023 Take 1 tablet by mouth 3 (three) times a week for 30 days. CONTINUE taking these medications Instructions Last Dose Given Next Dose Due acetaminophen 500 mg tablet Commonly known as: TYLENOL EXTRA STRENGTH Take 1 tablet (500 mg total) by mouth every 6 (six) hours as needed for pain. Where to Get Your Medications These medications were sent to [facility]/pharmacy #[id number] AT [place] [id number] aspirin 81 mg cyanocobalamin 1000 MCG tablet predniSONE 20 mg tablet sulfamethoxazole-trimethoprim 800-160 mg per tablet For most accurate medication list, please review the discharge medication summary. DISCHARGE EXAM: Vitals: 09/26/23 0720 BP: Pulse: 86 Resp: 16 Temp: 36.9 C (98.4 F) SpO2: General appearance: alert, in no acute distress Skin: No rash, no erythema Lungs: Nonlabored respiration, no wheezing Heart: RRR, No ectopy Abdomen: Abdomen soft, non-tender. Extremities: No edema, no swelling or erythema. Neuro: AAOx3, non-focal Labs: Recent Results (from the past 48 hour(s)) CBC auto differential Collection Time: 09/26/23 5:32 AM Result Value Ref Range White Blood Cells 10.5 4.0 - 11.0 X10E9/L RBC count 2.88 (L) 3.80 - 5.20 X10E12/L Hemoglobin 8.2 (L) 11.7 - 15.5 g/dL Hematocrit 24.8 (L) 35 - 47 % MCV 86 80 - 100 fL MCH 28.5 27 - 34 pg MCHC 33.1 32 - 36 g/dL RDW 14.4 11.5 - 15.0 % Platelets 686 (H) 150 - 450 X10E9/L MPV 6.4 (L) 7 - 12 fL % neutrophils 67.6 % % lymphocytes 22.6 % % monocytes 9.0 % % eosinophils 0.0 % % Basophils 0.8 % Neutrophils Absolute (A) 7.1 (H) 1.5 - 6.6 X10E9/L Lymphocytes Absolute 2.4 1.0 - 3.5 X10E9/L Monocytes Absolute 1.0 (H) 0 - 0.9 X10E9/L Eosinophils Absolute 0.0 0.0 - 0.4 X10E9/L Basophils Absolute 0.1 0.0 - 0.2 X10E9/L Basic Metabolic Panel Collection Time: 09/26/23 5:32 AM Result Value Ref Range Sodium 141 134 - 146 mmol/L Potassium, Bld 3.9 3.5 - 5.0 mmol/L Chloride 103 98 - 109 mmol/L CO2 30 22 - 32 mmol/L Anion gap 8 5 - 15 mmol/L BUN 26 5 - 27 mg/dL Creatinine 0.65 0.40 - 1.00 mg/dL Glucose 79 65 - 99 mg/dL Calcium 7.9 (L) 8.5 - 10.5 mg/dL eGFR (CKD-EPI)non-race dependent >90 >59 ml/min/1.73sq.m Radiology: No results found. Discharge Instructions Disposition: Discharge to Home Condition: Stable Activity: activity as tolerated and No driving Diet: Adult diet Regular Texture Adult diet [address] [address] Schedule an appointment as soon as possible for a visit in 1 week(s) Jt Jasso MD [address] [facility] [address] [facility] Rheumatology [facility] [phone] Schedule an appointment as soon as possible for a visit in 2 week(s) Joni Pizano MD [address], [place] [address] [facility] [address] Schedule an appointment as soon as possible for a visit in 2 week(s) Sandy Pizano MD [address] [facility], [address] [facility] [phone] Schedule an appointment as soon as possible for a visit in 1 month(s) Montana Bartlett MD [address] [facility] [phone] Schedule an appointment as soon as possible for a visit in 2 week(s) Information Provided to the Patient: Patient given copy of Discharge Instructions, patient hospital stay was discussed. I have spent 35 minutes coordinating and preparing this discharge. I have discussed the patient's hospitalization course, treatment plan and follow up instructions with patient and daughter at bedside. I have answered all the patient's questions. Electronically signed by: BART MILIAN MD [facility] Hospital[facility], Department of Internal Medicine 09/26/23 1:16 PM documented in this encounter [facility] 09-26-2023 Hospital Discharge instructions Bart Milian MD - 09/26/2023 1:15 PM EST You are started on Aspirin to reduce medical terminologist risk of vascular complications with you suspected condition (giant cell arteritis) also it will help with preventing thrombosis (clotting) given your Thrombocytosis (elevated platelet count). Please discuss any concerns with your primary care provider, composition worker or paper latcher Discuss with primary care or composition worker DEXA scan as you are expected to be on steroid medications for prolonged period of time (up to 6 months). Log term steroids can cause Osteoporosis. The following attachments cannot be sent through Care Everywhere.Polymyalgia rheumatica and giant cell arteritis (Senegalese)documented in this encounter [facility] [employer] [facility] 09-26-2023 History of Present illness Narrative Images from the original note were not included. [facility] Rheumatology PROGRESS NOTE DATE OF ADMISSION 09/23/2023 12:25 AM REASON FOR CONSULTATION: Acute B/L sudden painless vision loss concerning for B/l GCA REFERRING PHYSICIAN: Goran Thomas MD PCP JOHN PATEL, ASSESSMENT AND PLAN: B/L vision loss likely 2/2 GCA -Pt's initial symptoms were blur vision in L eye but unfortunately when she presented to [facility] she had complete vision loss in both eyes at that time -Underwent b/l temporal artery bx on 09/25/23 -Started on IV Solu-Medrol 1000 mg for 3 days 2. Positive SILVIA by reflex, RF and centromere antibody -During this admission she had workup done which showed positive SILVIA screen, mildly elevated rheumatoid factor at 21 and elevated anticentromere antibody. -Anca ribosomal antibody, SSA, SSB, scleroderma antibody, Tiki 1, Mejia, TRUCK LEASING MANAGER, anti dsDNA, anti chromatin were negative. -No concern for RA or scleroderma given lack of clinical symptoms Plan: -currently on prednisone 60 mg daily, continue -Bactrim for PCP prophylaxis -Follow up with rheumatology as outpatient in 2-3 weeks, we will forward her information to our clinic staff -no objection to discharge from rheumatology standpoint Discussed with attending Dr. Romero Shah PGY-5, Rheumatology CHIEF COMPLAINT: Visual loss HISTORY OF PRESENT ILLNESS: Jose David is a 78 y.o. White or female who presents with no significant past medical history presented to [facility] 09/24 for concerns of vision loss in left eye. Patient was evaluated by device sales consultant on 09/19/2023 due to blurry vision left eye. During the appointment she was told that her optic disc was swollen and was referred to Ophthalmology. Her vision continued to worsen and over the weekend she also all vision in left eye. To developed decreased vision in her right eye and was recommended to present to the ER for concerns of giant cell arteritis. Initially at [facility] she was given Solu-Medrol 250 mg IV 1 dose and then transferred to [facility]. On presenting to [facility], she had complete vision loss in both eyes. She was started on IV Solu-Medrol 1000 mg for 3 days. She underwent bilateral temporal artery biopsy on 09/25/2023. During this admission she had workup done which showed positive SILVIA screen, mildly elevated rheumatoid factor at 21 and elevated anticentromere antibody. Anca ribosomal antibody, SSA, SSB, scleroderma antibody, Tiki 1, Mejia, TRUCK LEASING MANAGER, anti dsDNA, anti chromatin were negative. PAST MEDICAL HISTORY: History reviewed. No pertinent past medical history. PAST SURGICAL HISTORY: Past Surgical History: Procedure Laterality Date APPENDECTOMY BIOPSY ARTERY TEMPORAL Bilateral 09/25/2023 Performed by rKistel Reid MD at [facility] TONSILLECTOMY TUBAL LIGATION ALLERGIES: Allergies Allergen Reactions Penicillin Confusion and Fever HOME MEDICATIONS: Medications Prior to Admission Medication Sig Dispense Refill Last Dose acetaminophen (TYLENOL EXTRA STRENGTH) 500 mg tablet Take 1 tablet (500 mg total) by mouth every 6 (six) hours as needed for pain. Other - as prescribed SOCIAL HISTORY: Social History Socioeconomic History Marital status: Spouse name: Not on file Number of children: Not on file Years of education: Not on file Highest education level: Not on file Occupational History Not on file Tobacco Use Smoking status: Never Smokeless tobacco: Never Substance and Sexual Activity Alcohol use: Never Drug use: Never Sexual activity: Defer Other Topics Concern Not on file Social History Narrative Not on file Social Determinants of Health Financial Resource Strain: Not on file Food Insecurity: Not on file Transportation Needs: Not on file Physical Activity: Not on file Stress: Not on file Social Connections: Not on file Interpersonal Safety: Not on file Housing Instability: Not on file FAMILY HISTORY: History reviewed. No pertinent family history. REVIEW OF SYSTEMS: CONSTITUTIONAL: Patient denies fevers, chills, sweats and weight changes. EYES: no vision in b/l eyes EARS, NOSE, AND THROAT: No difficulties with hearing. No symptoms of rhinitis or sore throat. CARDIOVASCULAR: Patient denies chest pains, palpitations, orthopnea and paroxysmal nocturnal dyspnea. RESPIRATORY: No dyspnea on exertion, no wheezing or cough. GI: No nausea, vomiting, diarrhea, constipation, abdominal pain, hematochezia or melena. : No urinary hesitancy or dribbling. No nocturia or urinary frequency. No abnormal urethral discharge. MUSCULOSKELETAL: No myalgias or arthralgias. NEUROLOGIC: No chronic headaches, no seizures. Patient denies numbness, tingling or weakness PHYSICAL EXAM: Vital Signs Blood pressure 148/72, pulse 86, temperature 36.9 C (98.4 F), temperature source Oral, resp. rate 16, height 157.5 cm (5' 2 ), weight 52.6 kg (115 lb 15.4 oz), SpO2 91%. Respiratory Source O2 Device: None (Room air) Admission Weight Weight: 52.6 kg (115 lb 15.4 oz) General Appearance Healthy, alert, active, cooperative, and in no distress Head Normocephalic, without obvious abnormality, atraumatic Eyes b/l vision loss ENT ENT exam normal, no neck nodes or sinus tenderness Neck no adenopathy, no carotid bruit, no JVD, supple, symmetrical, trachea midline, and thyroid not enlarged, symmetric, no tenderness/mass/nodules Lungs clear to auscultation bilaterally Heart: regular rate and rhythm, S1, S2 normal, no murmur, click, rub or gallop Abdomen soft, non-tender; bowel sounds normal; no masses, no organomegaly Extremities extremities normal, atraumatic, no cyanosis or edema Skin Skin color, texture, turgor normal. No rashes or lesions Neurologic: Grossly normal Imaging Echo complete W/O contrast Result Date: 09/24/2023 Left Ventricle: There is mild concentric increased wall thickness/hypertrophy. Systolic function is normal with an ejection fraction of 60-65%. The quantitative EF by 2D Dorado biplane is 63%. No segmental wall motion abnormalities. Aortic Valve: The aortic valve is trileaflet. There is mild sclerosis. Mitral Valve: The leaflets are mildly thickened. There is mild posterior annular calcification. There is mild to moderate regurgitation. There is no evidence of mitral valve stenosis. MR orbit with and without contrast Result Date: 09/24/2023 EXAM:MR ORBIT W WO CONT INDICATION: Optic neuritis suspected COMPARISON: CT brain 09/13/2023 TECHNIQUE/PROTOCOL: Multiplanar multisequence MRI of the brain and MRI orbits pre and post contrast. CONTRAST: 10mL ProHance IV. FINDINGS: No acute diffusion signal abnormality. There is no midline shift, mass effect, or acute intracranial hemorrhage. Mild global parenchymal atrophy. No significant T2/FLAIR signal in the periventricular and deep subcortical white matter. The brainstem is unremarkable appearing. There is atrophy of the cerebellar vermis, greater than expected for the degree of global parenchymal atrophy. Contents of the sella turcica are unremarkable appearing. There is no mass effect placed on the optic chiasm. No enhancing intracranial mass/lesion. No evidence of pachymeningeal/leptomeningeal enhancement. Normal appearance of the major arterial structures in the mechoopda of Howell. The paranasal sinuses are clear. Partial bilateral mastoid effusions. Circumscribed 9 mm observation at the level of the right fossa of Rosenmuller. This lesion appears heterogeneous, though mostly hyper intense on T2. There is some intrinsic T1 hyperintensity. The bony orbits are unremarkable appearing. The intraconal and extraconal fat is unremarkable appearing. Extraocular muscles are symmetric. Bilateral lens replacement. There is otherwise normal contour and signal the globes. There is no pathologic enhancement of the optic nerves which are otherwise symmetric in appearance. Optic nerve sheaths are normal. Lacrimal apparatus is unremarkable appearing. Normal enhancement of the cavernous sinus. IMPRESSION: * No acute intracranial abnormality to account for patient's symptoms. * Normal morphology of the orbits and associated structures. * Incidental circumscribed 9 mm observation the level of the right fossa of Rosenmuller. Though potentially representing a benign fossa of Rosenmuller cyst, intrinsic T1 signal does raise suspicion for solid component. Consider direct visualization/sampling if indicated. * Mild global parenchymal atrophy with asymmetrically advanced atrophy of the cerebellar vermis. This is a nonspecific finding. Approved by Resident Sathish Charlton DO on 09/24/2023 4:18 AM IGilbert MD have personally reviewed the image(s) and agree with and/or edited the report Finalized by Gilbert Jewell MD on 09/24/2023 4:25 AM MR brain with and without contrast Result Date: 09/24/2023 MR BRAIN W WO CONT CLINICAL INFORMATION: Ophthalmoplegia, initially monocular vision loss 09/19/2023, now presenting with binocular vision loss. COMPARISON: CT brain 09/13/2023 PROCEDURE: Routine MRI Brain was obtained before and after the uncomplicated intravenous administration of 10 mL ProHance. Multisequence, multiplanar imaging was obtained. FINDINGS: No acute diffusion signal abnormality. There is no midline shift, mass effect, or acute intracranial hemorrhage. Mild global parenchymal atrophy. No significant T2/FLAIR signal in the periventricular and deep subcortical white matter. The brainstem is unremarkable appearing. There is atrophy of the cerebellar vermis, greater than expected for the degree of global parenchymal atrophy. Contents of the sella turcica are unremarkable appearing. There is no mass effect placed on the optic chiasm. No enhancing intracranial mass/lesion. No evidence of pachymeningeal/leptomeningeal enhancement. Normal appearance of the major arterial structures in the mechoopda of Howell. The paranasal sinuses are clear. Partial bilateral mastoid effusions. Circumscribed 9 mm observation at the level of the right fossa of Rosenmuller. This lesion appears heterogeneous, though mostly hyper intense on T2. There is some intrinsic T1 hyperintensity. The bony orbits are unremarkable appearing. The intraconal and extraconal fat is unremarkable appearing. Extraocular muscles are symmetric. Bilateral lens replacement. There is otherwise normal contour and signal the globes. There is no pathologic enhancement of the optic nerves which are symmetric in appearance. Optic nerve sheaths are normal. Lacrimal apparatus is unremarkable appearing. Normal enhancement of the cavernous sinus. IMPRESSION: * No acute intracranial abnormality to account for patient's symptoms. * Normal morphology of the orbits and associated structures. * Incidental circumscribed 9 mm observation at the level of the right fossa of Rosenmuller. Though potentially representing a benign fossa of Rosenmuller cyst, intrinsic T1 signal does raise suspicion for a solid component. Consider direct visualization/sampling if indicated. * Mild global parenchymal atrophy with asymmetrically advanced atrophy of the cerebellar vermis. This is a nonspecific finding. Approved by Resident Sathish Charlton DO on 09/24/2023 3:51 AM Gilbert Kline MD have personally reviewed the image(s) and agree with and/or edited the report Finalized by Gilbert Jewell MD on 09/24/2023 4:24 AM Lab Review Recent Results (from the past 48 hour(s)) CBC auto differential Collection Time: 09/26/23 5:32 AM Result Value Ref Range White Blood Cells 10.5 4.0 - 11.0 X10E9/L RBC count 2.88 (L) 3.80 - 5.20 X10E12/L Hemoglobin 8.2 (L) 11.7 - 15.5 g/dL Hematocrit 24.8 (L) 35 - 47 % MCV 86 80 - 100 fL MCH 28.5 27 - 34 pg MCHC 33.1 32 - 36 g/dL RDW 14.4 11.5 - 15.0 % Platelets 686 (H) 150 - 450 X10E9/L MPV 6.4 (L) 7 - 12 fL % neutrophils 67.6 % % lymphocytes 22.6 % % monocytes 9.0 % % eosinophils 0.0 % % Basophils 0.8 % Neutrophils Absolute (A) 7.1 (H) 1.5 - 6.6 X10E9/L Lymphocytes Absolute 2.4 1.0 - 3.5 X10E9/L Monocytes Absolute 1.0 (H) 0 - 0.9 X10E9/L Eosinophils Absolute 0.0 0.0 - 0.4 X10E9/L Basophils Absolute 0.1 0.0 - 0.2 X10E9/L Basic Metabolic Panel Collection Time: 09/26/23 5:32 AM Result Value Ref Range Sodium 141 134 - 146 mmol/L Potassium, Bld 3.9 3.5 - 5.0 mmol/L Chloride 103 98 - 109 mmol/L CO2 30 22 - 32 mmol/L Anion gap 8 5 - 15 mmol/L BUN 26 5 - 27 mg/dL Creatinine 0.65 0.40 - 1.00 mg/dL Glucose 79 65 - 99 mg/dL Calcium 7.9 (L) 8.5 - 10.5 mg/dL eGFR (CKD-EPI)non-race dependent >90 >59 ml/min/1.73sq.m Associated attestation - Romero, Jt Milian MD - 09/26/2023 9:24 PM EST I have seen, examined and performed braswell parts of this encounter with my resident and I agree with the assessment and plan. Images from the original note were not included. [facility] Progress Note Subjective: Status post bilateral temporal artery biopsy yesterday. Pain is minimal. Denies any other complaints at this time. Vitals: Vitals: 09/26/23 0409 BP: 148/72 Pulse: 87 Resp: 13 Temp: 36.6 C (97.8 F) SpO2: 91% I/O last 3 completed shifts: In: 700 [I.V.:700] Out: 175 [Urine:150; Blood:25] No intake/output data recorded. Physical Exam: General: Alert, NAD. Head: bilateral preauricular incisions noted closed with skin glue in place, no bleeding, hematoma or signs of infection. CV: RRR. Lungs: No audible wheezes or crackles. Abd: S/ND/NT. Extremities: BUE warm with intact motor and sensation. BLE with intact motor and sensation. Labs: Results from last 7 days Lab Units 09/26/23 0532 09/24/23 0911 09/23/23 0818 09/23/23 0628 WBC X10E9/L 10.5 18.9* 12.1* 11.1* HEMOGLOBIN g/dL 8.2* 8.3* 9.1* 8.6* HEMATOCRIT % 24.8* 25.6* 27.8* 26.2* PLATELETS X10E9/L 686* 902* 924* 917* Results from last 7 days Lab Units 09/26/23 0532 09/24/23 0911 09/23/23 0628 POTASSIUM mmol/L 3.9 3.5 3.7 CO2 mmol/L 30 29 25 BUN mg/dL 26 22 14 CREATININE mg/dL 0.65 0.61 0.49 GLUCOSE mg/dL 79 98 141* Medications: cyanocobalamin, 1,000 mcg, oral, Daily enoxaparin (LOVENOX) injection, 40 mg, subcutaneous, Daily methylPREDNISolone sodium succinate, 1,000 mg, intravenous, Q24H SIXTO predniSONE, 60 mg, oral, Daily with breakfast sodium chloride, 3 mL, intravenous, Q12H [facility] sulfamethoxazole-trimethoprim, 1 tablet, oral, Once per day on Friday dextrose 5 % in water, 100 mL/hr sodium chloride 0.9 %, 20 mL/hr, Last Rate: 20 mL/hr (09/24/23 1008) Imaging: No results found. Assessment and Plan: Jose David is a 78 yo female with intermittent vision loss concerning concerning for temporal arteritis. Vascular surgery consulted for temporal artery biopsy and this was performed on 09/25/23 without complications. Follow up pathology. Pain meds as needed. Remainder of care per primary and other consulting teams. Vascular surgery will sign off. Please call with any questions or concerns. Juaquin Bailey M.D. Resident, General Surgery PGY2 09/26/23 Associated attestation - Jose De León MD - 09/26/2023 11:24 AM EST I have seen and examined the patient and discussed their management with the care team. Reviewed chart, vitals and labs. I reviewed the care team note and agree with the documented findings and plan of care Jose De León MD,MD [facility] 11:24 AM 09/26/2023 Images from the original note were not included. [facility] Hospitalists Progress Note 09/25/2023 Patient Name: Jose David : 1945 Hospital Day: 3 SUBJECTIVE Follow-up for vision loss The patient seen and examined. No acute events over night. No change in vision loss. She denies headache and jaw claudications History reviewed. No pertinent past medical history. Past Surgical History: Procedure Laterality Date APPENDECTOMY BIOPSY ARTERY TEMPORAL Bilateral 09/25/2023 Performed by Kristel Reid MD at [facility] TONSILLECTOMY TUBAL LIGATION OBJECTIVE Vital Signs: Temp: [36.1 C (97 F)-36.8 C (98.2 F)] 36.5 C (97.7 F) Pulse: [81-109] 109 Resp: [11-23] 15 BP: (120-153)/(60-84) 131/60 SpO2: [91 %-100 %] 97 % O2 Device: None (Room air) O2 Flow Rate (L/min): [6 L/min] 6 L/min Weight: Body mass index is 21.21 kg/m . Admission weight: 52.6 kg (115 lb 15.4 oz) Wt Readings from Last 3 Encounters: 09/24/23 52.6 kg (115 lb 15.4 oz) Input/Output: Intake/Output Summary (Last 24 hours) at 09/25/2023 1634 Last data filed at 09/25/2023 0945 Gross per 24 hour Intake 880 ml Output 175 ml Net 705 ml Physical Exam: General appearance: Alert, cooperative, no distress. Eyes: Conjunctiva/corneas moist and clear, pallor ENT: Oropharynx clear with moist mucous membranes and no mucosal ulcerations. No thrush. External ears and nose are normal without lesions or scars. Respiratory: Normal work of breathing. No use of accessory muscles. No wheezing, rhonchi or crackles. Cardiovascular: Regular rate and rhythm, S1, S2 normal, no murmur, rub or gallop. No LE edema. Abdomen: Soft, non-tender, no masses. No hernia. No hepatosplenomegaly. Skin: No rashes, lesions or ulcers. No induration or subcutaneous nodules. Psychiatric: Mood and affect appropriate, Appropriate judgment and insight. Alert and oriented. Labs/Imaging: No results found for this or any previous visit (from the past 24 hour(s)). Microbiology Results No results found for the last 168 hours. No results found. All available laboratory, imaging, and microbiology data has been personally reviewed in detail, and accessible in full per EMR. Medications: cyanocobalamin, 1,000 mcg, oral, Daily enoxaparin (LOVENOX) injection, 40 mg, subcutaneous, Daily methylPREDNISolone sodium succinate, 1,000 mg, intravenous, Q24H SIXTO [START ON 09/26/2023] predniSONE, 60 mg, oral, Daily with breakfast sodium chloride, 3 mL, intravenous, Q12H SIXTO [START ON 09/26/2023] sulfamethoxazole-trimethoprim, 1 tablet, oral, Once per day on Friday Infusion: dextrose 5 % in water, 100 mL/hr sodium chloride 0.9 %, 20 mL/hr, Last Rate: 20 mL/hr (09/24/23 1008) PRN medications: acetaminophen dextrose dextrose 5 % in water dextrose 50 % in water (D50W) glucagon (human recombinant) ondansetron sennosides-docusate sodium sodium chloride sodium chloride sodium chloride 0.9 % ASSESSMENT and plan: Active Hospital Problems Diagnosis Date Noted Vision blurred 09/23/2023 Stroke-like symptoms 09/23/2023 Resolved Problems No resolved problems to display. Rapidly progressing bilateral vision loss likely secondary to giant cell arteritis Elevated ESR and CRP Reviewed fundus pictures posted by ophthalmology Orbital and brain MRI negative for stroke or demyelination Continue with 1 gm solumedrol, will be followed by prednisone 60 mg daily to be tapered outpatient by Rheumatology S/p bilateral temporal artery biopsy with Dr. Reid 09/25/2023 Antiphospholipids negative Vasculitis workup shows positive Anti centromere noted, unclear significance, appreciate rheum input. Thrombocytosis No previous thrombocytosis in the past, most recent platelet count in 2019 was 369 K. Peripheral smear, JAK2, BCR-abl mutation pending Hematology on consult Normocytic anemia Low iron and iron sat, ferritin in elevated (could be acute phase reactant) Hemolysis workup: elevated haptoglobin and normal LDH, retic 2.3% (hyperproliferation ) SPEP, peripheral smear pending Folate normal, B12 borderline, MMA pending Steroid induced leukocytosis DVT prophylaxis: Lovenox Code Status: Full Disposition: To be determined later. Current care plan discussed in detail with the patient. SHe verbalized understanding. Further management will follow based on the clinical course of the patient and results of ongoing evaluation Electronically signed by: BART MILIAN MD 09/25/2023 Disclaimer Note: To increase efficiency, your provider may have prepared this document using voice recognition technology. In that case, if a word or phrase is confusing, or does not make sense, this is likely due to a recognition error within the program which was not discovered during the provider s review. If you believe an error has occurred, please notify your provider s office at your earliest convenience, so we can correct any mistakes. Images from the original note were not included. Vascular surgery progress note. Reason for Consultation Bilateral temporal artery biopsy, concern for giant cell arteritis History and Present Illness Jose David is a 78 y.o. White or female who presents to the emergency department from her enterprise software engineer's office. She was being evaluated with an enterprise software engineer for possible giant cell arthritis. She said she experienced vision loss in the left eye on Friday and experienced vision loss in the right eye on Friday. She said since being admitted and started on steroids she has been getting intermittent vision in both eyes that last a few seconds. She denies jaw claudication, but endorsed having jaw tiredness when chewing food because she got her tooth extracted. Denies any numbness and tingling, lateralization of weakness and headaches. WBC 12.1, platelet 924, haptoglobin 613, sed rate 114, C-Reactive protein 13.3. 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 No pertinent past medical history. Past Surgical History Past Surgical History: Procedure Laterality Date APPENDECTOMY TONSILLECTOMY TUBAL LIGATION Allergies Allergies Allergen Reactions Penicillin Confusion and Fever Current Medications cyanocobalamin, 1,000 mcg, oral, Daily enoxaparin (LOVENOX) injection, 40 mg, subcutaneous, Daily methylPREDNISolone sodium succinate, 1,000 mg, intravenous, Q24H SIXTO sodium chloride, 3 mL, intravenous, Q12H SIXTO Current Infusions dextrose 5 % in water, 100 mL/hr sodium chloride 0.9 %, 20 mL/hr, Last Rate: 20 mL/hr (09/24/23 1008) Home Medications Medications Prior to Admission Medication Sig Dispense Refill Last Dose acetaminophen (TYLENOL EXTRA STRENGTH) 500 mg tablet Take 1 tablet (500 mg total) by mouth every 6 (six) hours as needed for pain. Other - as prescribed Social History Social History Socioeconomic History Marital status: Spouse name: Not on file Number of children: Not on file Years of education: Not on file Highest education level: Not on file Occupational History Not on file Tobacco Use Smoking status: Never Smokeless tobacco: Never Substance and Sexual Activity Alcohol use: Never Drug use: Never Sexual activity: Defer Other Topics Concern Not on file Social History Narrative Not on file Social Determinants of Health Financial Resource Strain: Not on file Food Insecurity: Not on file Transportation Needs: Not on file Physical Activity: Not on file Stress: Not on file Social Connections: Not on file Interpersonal Safety: Not on file Housing Instability: Not on file Primary Care Physician JOHN PATEL, DO Family Histroy History reviewed. No pertinent family history. Review Of Systems Review of Systems Constitutional: Negative for appetite change, diaphoresis and fatigue. HENT: Negative for drooling, facial swelling and trouble swallowing. Eyes: Positive for visual disturbance. Negative for discharge and redness. Intermittent loss of vision bilateral eyes Respiratory: Negative for chest tightness, shortness of breath and wheezing. Cardiovascular: Negative for chest pain and leg swelling. Gastrointestinal: Negative for abdominal pain, nausea and vomiting. Genitourinary: Negative for difficulty urinating. Musculoskeletal: Negative for neck pain and neck stiffness. Skin: Negative for color change. Neurological: Negative for dizziness, seizures, speech difficulty, weakness, light-headedness, numbness and headaches. Psychiatric/Behavioral: Negative for confusion and hallucinations. The patient is not nervous/anxious. Objective Vital signs: Vitals: 09/24/23 1544 09/24/23 1953 09/24/23 2345 09/25/23 0428 BP: 123/62 132/77 131/84 143/83 Pulse: 108 95 89 81 Resp: 16 12 16 11 Temp: 36.7 C (98.1 F) 36.7 C (98.1 F) 36.5 C (97.7 F) 36.4 C (97.6 F) TempSrc: Oral Oral Oral Oral SpO2: 97% 94% 93% 95% Weight: Height: Temperature Range Last 24 Hours : Temp: 36.4 C (97.6 F) Temp Av.6 C (97.9 F) Min: 36.4 C (97.6 F) Max: 36.8 C (98.2 F) Admit Weight: 52.6 kg (115 lb 15.4 oz) Body mass index is 21.21 kg/m . Last Weights: Wt Readings from Last 3 Encounters: 09/24/23 52.6 kg (115 lb 15.4 oz) I/O's: Intake/Output Summary (Last 24 hours) at 09/25/2023 0607 Last data filed at 09/24/2023 1800 Gross per 24 hour Intake 380 ml Output -- Net 380 ml Physical Exam Physical Exam Constitutional: General: She is not in acute distress. Appearance: Normal appearance. She is not ill-appearing, toxic-appearing or diaphoretic. HENT: Head: Normocephalic and atraumatic. Eyes: General: Right eye: Discharge present. Left eye: Discharge present. Comments: Intermittent vision loss bilaterally Neck: Vascular: No carotid bruit. Cardiovascular: Rate and Rhythm: Normal rate. Pulses: Normal pulses. Heart sounds: Normal heart sounds. Pulmonary: Effort: Pulmonary effort is normal. No respiratory distress. Breath sounds: Normal breath sounds. No wheezing or rales. Abdominal: General: Bowel sounds are normal. There is no distension. Tenderness: There is no guarding. Musculoskeletal: General: No swelling. Cervical back: Normal range of motion and neck supple. No tenderness. Lymphadenopathy: Cervical: No cervical adenopathy. Neurological: General: No focal deficit present. Mental Status: She is alert and oriented to person, place, and time. Psychiatric: Mood and Affect: Mood normal. Thought Content: Thought content normal. Imaging No results found. No results found. Assessment/Plan Jose David is a 78 yo female with intermittent vision loss concerning concerning for temporal arteritis. Will proceed with temporal artery biopsy today with Dr. Luis Felipe Reid. Keep NPO Juaquin Del Cid MD Associated attestation - Franklin, Kristel Perez MD - 09/25/2023 7:30 AM EST OR today. Images from the original note were not included. [facility] Neurology General Neurology Consultation Note Consult Neurology Service: [phone] Primary Team: [facility] Chief Complaint and Reason for Consultation: Vision loss History: Jose David is a 78 y.o. year old female for whom Neurology was consulted for chief complaint of vision loss. History was taken from the patient and chart review. Patient has no significant past medical history, she was doing well till Tuesday 09/19 when she started noticing blurry vision in her left eye, according to the patient she was seen by an eye doctor on that day, the patient was told that her optic disc is swollen, and the patient was given referral to eye center in [place]?, on Friday and Friday, vision on the left eye worsened significantly and she lost her vision on the left eye. On Friday 09/22, patient came to [place] to see an eye doctor, who asked her to go to the ED. patient initially went to [facility], given Solu-Medrol 250 mg IV once, transferred to [facility] for further workup and ophthalmology evaluation. According to the patient, her right eye vision worsened significantly on Friday, and she lost her vision on both eyes. Patient had no past medical history, she has not taking any scheduled medications, patient lives with her daughter, she is driving and working. Walking with no assistive devices. Upon initial assessment in [facility], patient had complete vision loss on both eyes, she described seeing bright lights intermittently, patient said that few hours before she was able to see her cell phone. Patient denied any headache, painful eye movements, numbness, tingling or any other new symptoms. Interval History: Patient was seen and examined at bedside this morning, she is lying in her chair not in apparent distress or in pain. Patient not able see in both eyes. Patient sometimes her set up but she has not able to see even hand motion. Patient denying abnormal eye movement, skin rash, history of lupus or rheumatoid disease. She also denying any family history rheumatological disease but she has not sure. Patient has no significant past medical history, does not smoke or drink. Other reported events or fresh problem since last night Rest of history per HPI Physical Exam Vital Signs: Vitals: 09/24/23 0752 BP: 123/66 Pulse: 103 Resp: Temp: 36.8 C (98.2 F) SpO2: 93% General: Normotensive, in no acute distress. Cardiac Examination: Heart: RRR, no murmurs, no rubs, no gallops. Carotids: No bruit Peripheral Vascular System: Peripheral pulses intact Neurological Examination: Higher Mental Function: Orientated to time, place, person Attention span and concentration intact Recent and Remote Memory Intact Language intact Fund of knowledge appropriate Ophthalmological Examination: Clear conjunctiva, no cataracts. Optic disc is swollen and pale on both sides L<R Osman red spot in left eye Cranial Nerve Examination: II: Not tracking, no response to visual threat, vision impaired III, IV, & : EOM intact, no ptosis, no nystagmus seen. Pupils are dilated, sluggishly reactive on the left, brisk reactive on the right V: Facial sensation is intact. VII: no facial asymmetry, facial movement intact. VIII: hearing is normal. IX-X: Palate elevates in the midline. XI: Normal trapezius strength and/or movement. XII: Tongue movement is normal, position is midline and no fasciculations are observed. Tongue strength intact. Motor: Power -- No focal motor weakness noted in BL upper or lower extremities. Bulk and muscle tone are intact in BL upper and lower extremities. No rigidity or spasticity. No atrophy or abnormal movements noted. No dystonia, or motor tics. No bradykinesia, postural or kinetic tremor noted. No fasciculation or myotonia noted. No abnormal movements noticed. No evidence of pseudo bulbar paralysis; no sialorrhea, difficulties swallowing. No tremors were noted Deep Tendon Reflexes: Right, Left: Biceps 2, 2 Brachioradialis 2, 2 Patellae 2, 2 Plantar response upgoing, Ronn negative Sensory examination: Intact sensation to light touch equal and symmetrical bilateral upper and lower Cerebellar: No dysmetria Gait and station: Deferred Assessment: Jose David is 78 years old female patient with no significant PMH, currently being evaluated for progressive vision loss, started on the left eye, then progressed to the right eye. Visual acuity is very impaired currently, physical exam concerning for bilateral optic disc swelling and pallor. Osman red spot in right eye. ESR 114 CRP 13.3 CTH, head and neck CTA done at [facility], reportedly unremarkable Impression: Binocular vision loss concerning for bilateral giant cell arteritis , other differential including embolic ischemia of bilateral central retinal arteries vs neuromyelitis optica Other Positive SILVIA, anticentromere, and rheumatoid factors Thrombocytosis Negative antiphospholipid antibodies Plan: Brain MRI and orbital MRI were unremarkable apart from incidental 9 mm cyst in R Rosenm ller fossa. Continue IV solu-medrol 1000 mcg for 3 total days Antiphospholipid antibodies came negative, Thrombocytosis workup per Oncology TTE, consider cardiology consult for MAUREEN given concern for embolic phenomenon Rheumatology consulted appreciate recs Vascular surgery consulted for bilateral temporal artery biopsy, appreciate their management We will follow peripherally, please reach out to us if any question or concern Goran Thomas MD Internal medicine PGY 3 Staffed with: Dr. Pizano This patient is being followed by the Neurology Resident service. Contact attending directly during these hours: Friday to 7:30-8:30 A.M. to Friday 12-1:00 p.m. Primary Neurology service: [phone] Consult neurology service: [phone] Resident Stroke Service: [phone] If the patient belongs to the Stroke TRAM service please contact the Stroke TRAM directly. Associated attestation - Sandy Pizano MD - 09/24/2023 5:14 PM EST Attending Attestation: I saw the patient. I performed the critical/braswell portions of the service. I was directly involved in the management and treatment plan of the patient. I reviewed the resident's note. Additional Notes/Findings: No clinical event; profound bilateral vision losses (subtle subjective perception of bright dot to bright light); no perception of motion at 10 cm; has been found with thrombocytosis and positive anti-centromere Ab; Reviewed brain MRI: unremarkable; suggest continuing IV steroid and follow recommendations from ophthalmology, hematology and rheumatology; will follow from distance; please call with questions Sandy Pizano MD, PhD Images from the original note were not included. [facility] Hospitalists Progress Note 09/24/2023 Patient Name: Jose David : 1945 Hospital Day: 2 SUBJECTIVE Follow-up for vision loss The patient seen and examined. No acute events over night. No improvement in her vision loss. History reviewed. No pertinent past medical history. Past Surgical History: Procedure Laterality Date APPENDECTOMY TONSILLECTOMY TUBAL LIGATION OBJECTIVE Vital Signs: Temp: [36.6 C (97.9 F)-36.8 C (98.2 F)] 36.8 C (98.2 F) Pulse: [78-113] 103 Resp: [18] 18 BP: (123-142)/(66-81) 123/66 SpO2: [93 %-96 %] 93 % O2 Device: None (Room air) Weight: Body mass index is 21.21 kg/m . Admission weight: 52.6 kg (115 lb 15.4 oz) Wt Readings from Last 3 Encounters: 09/23/23 52.6 kg (115 lb 15.4 oz) Input/Output: Intake/Output Summary (Last 24 hours) at 09/24/2023 1207 Last data filed at 09/24/2023 0900 Gross per 24 hour Intake 380 ml Output -- Net 380 ml Physical Exam: General appearance: Alert, cooperative, no distress. ENT: Oropharynx clear with moist mucous membranes and no mucosal ulcerations. No thrush. External ears and nose are normal without lesions or scars. Respiratory: Normal work of breathing. No use of accessory muscles. No wheezing, rhonchi or crackles. Cardiovascular: Regular rate and rhythm, S1, S2 normal, no murmur, rub or gallop. No LE edema. Abdomen: Soft, non-tender, no masses. No hernia. No hepatosplenomegaly. Skin: No rashes, lesions or ulcers. No induration or subcutaneous nodules. Psychiatric: Mood and affect appropriate, Appropriate judgment and insight. Alert and oriented. Labs/Imaging: Recent Results (from the past 24 hour(s)) Homocysteine total Collection Time: 09/23/23 12:56 PM Result Value Ref Range Homocysteine 9.29 3.36 - 20.44 mcmol/L Anti cardiolipin AB IgG IgA IgM Collection Time: 09/23/23 12:56 PM Result Value Ref Range Anticardiolipin IgA <2.0 0 - 19.9 APL Anticardiolipin IgM Ab <1.5 0 - 19.9 MPL Anticardiolipin IgG <1.6 0 - 19.9 GPL Hepatitis panel, acute Collection Time: 09/23/23 12:56 PM Result Value Ref Range Hepatitis B Surface Ag Negative Negative^Negative Hep B Core IgM Ab Negative Negative^Negative Hep A IgM Ab Non-Reactive Non-Reactive^Non-Reactive Anti HCV w/ PCR reflex Non-Reactive Non-Reactive^Non-Reactive Beta-2 glycoprotein antibodies Collection Time: 09/23/23 12:56 PM Result Value Ref Range Beta-2 gp1 IgA <2.0 0.0 - 19.9 u/mL Beta-2 gp1 IgM 4.1 0.0 - 19.9 u/mL Beta-2 gp1 IgG <1.4 0.0 - 19.9 u/mL Haptoglobin Collection Time: 09/23/23 12:56 PM Result Value Ref Range Haptoglobin 613 (H) 32 - 228 mg/dL Immunoelectrophoresis for Therapy Monitoring Collection Time: 09/23/23 12:56 PM Result Value Ref Range IgA 180 68 - 378 mg/dL IgM 285 (H) 45 - 281 mg/dL IgG 992 635 - 1,741 mg/dL Free [place] Lt Chains 2.91 (H) 0.33 - 1.94 mg/dL Free Lambda Lt Chains 2.38 0.57 - 2.63 mg/dL Free kecia/lambda ratio 1.22 0.26 - 1.65 Immune profile inter PENDING LDH Collection Time: 09/23/23 12:56 PM Result Value Ref Range LDH 140 100 - 235 U/L Protein electrophoresis, serum Collection Time: 09/23/23 12:56 PM Result Value Ref Range Total Protein 6.1 6.0 - 8.0 g/dL Albumin 2.5 (L) 3.4 - 5.3 g/dL Alpha 1 0.6 (H) 0.1 - 0.4 g/dL Alpha 2 1.2 (H) 0.4 - 1.1 g/dL Beta 0.8 0.5 - 1.2 g/dL Gamma Globulin 1.0 0.5 - 1.6 g/dL Prot. electrophoresis interp PENDING Direct Clint Collection Time: 09/23/23 2:00 PM Result Value Ref Range Polyspecific HENRRY Negative CBC auto differential Collection Time: 09/24/23 9:11 AM Result Value Ref Range White Blood Cells 18.9 (H) 4.0 - 11.0 X10E9/L RBC count 3.00 (L) 3.80 - 5.20 X10E12/L Hemoglobin 8.3 (L) 11.7 - 15.5 g/dL Hematocrit 25.6 (L) 35 - 47 % MCV 85 80 - 100 fL MCH 27.8 27 - 34 pg MCHC 32.5 32 - 36 g/dL RDW 14.8 11.5 - 15.0 % Platelets 902 (H) 150 - 450 X10E9/L MPV 6.5 (L) 7 - 12 fL % neutrophils 86.2 % % lymphocytes 8.3 % % monocytes 5.0 % % eosinophils 0.0 % % Basophils 0.5 % Neutrophils Absolute (A) 16.3 (H) 1.5 - 6.6 X10E9/L Lymphocytes Absolute 1.6 1.0 - 3.5 X10E9/L Monocytes Absolute 1.0 (H) 0 - 0.9 X10E9/L Eosinophils Absolute 0.0 0.0 - 0.4 X10E9/L Basophils Absolute 0.1 0.0 - 0.2 X10E9/L Basic Metabolic Panel Collection Time: 09/24/23 9:11 AM Result Value Ref Range Sodium 140 134 - 146 mmol/L Potassium, Bld 3.5 3.5 - 5.0 mmol/L Chloride 101 98 - 109 mmol/L CO2 29 22 - 32 mmol/L Anion gap 10 5 - 15 mmol/L BUN 22 5 - 27 mg/dL Creatinine 0.61 0.40 - 1.00 mg/dL Glucose 98 65 - 99 mg/dL Calcium 8.5 8.5 - 10.5 mg/dL eGFR (CKD-EPI)non-race dependent >90 >59 ml/min/1.73sq.m Microbiology Results No results found for the last 168 hours. MR orbit with and without contrast Result Date: 09/24/2023 EXAM:MR ORBIT W WO CONT INDICATION: Optic neuritis suspected COMPARISON: CT brain 09/13/2023 TECHNIQUE/PROTOCOL: Multiplanar multisequence MRI of the brain and MRI orbits pre and post contrast. CONTRAST: 10mL ProHance IV. FINDINGS: No acute diffusion signal abnormality. There is no midline shift, mass effect, or acute intracranial hemorrhage. Mild global parenchymal atrophy. No significant T2/FLAIR signal in the periventricular and deep subcortical white matter. The brainstem is unremarkable appearing. There is atrophy of the cerebellar vermis, greater than expected for the degree of global parenchymal atrophy. Contents of the sella turcica are unremarkable appearing. There is no mass effect placed on the optic chiasm. No enhancing intracranial mass/lesion. No evidence of pachymeningeal/leptomeningeal enhancement. Normal appearance of the major arterial structures in the me[place]op[place] of [place]. The paranasal sinuses are clear. Partial bilateral mastoid effusions. Circumscribed 9 mm observation at the level of the right fossa of Rosenmuller. This lesion appears heterogeneous, though mostly hyper intense on T2. There is some intrinsic T1 hyperintensity. The bony orbits are unremarkable appearing. The intraconal and extraconal fat is unremarkable appearing. Extraocular muscles are symmetric. Bilateral lens replacement. There is otherwise normal contour and signal the globes. There is no pathologic enhancement of the optic nerves which are otherwise symmetric in appearance. Optic nerve sheaths are normal. Lacrimal apparatus is unremarkable appearing. Normal enhancement of the cavernous sinus. IMPRESSION: * No acute intracranial abnormality to account for patient's symptoms. * Normal morphology of the orbits and associated structures. * Incidental circumscribed 9 mm observation the level of the right fossa of Rosenmuller. Though potentially representing a benign fossa of Rosenmuller cyst, intrinsic T1 signal does raise suspicion for solid component. Consider direct visualization/sampling if indicated. * Mild global parenchymal atrophy with asymmetrically advanced atrophy of the cerebellar vermis. This is a nonspecific finding. Approved by Resident Sathish Charlton DO on 09/24/2023 4:18 AM I, Gilbert Jewell MD have personally reviewed the image(s) and agree with and/or edited the report Finalized by Gilbert Jewell MD on 09/24/2023 4:25 AM MR brain with and without contrast Result Date: 09/24/2023 MR BRAIN W WO CONT CLINICAL INFORMATION: Ophthalmoplegia, initially monocular vision loss 09/19/2023, now presenting with binocular vision loss. COMPARISON: CT brain 09/13/2023 PROCEDURE: Routine MRI Brain was obtained before and after the uncomplicated intravenous administration of 10 mL ProHance. Multisequence, multiplanar imaging was obtained. FINDINGS: No acute diffusion signal abnormality. There is no midline shift, mass effect, or acute intracranial hemorrhage. Mild global parenchymal atrophy. No significant T2/FLAIR signal in the periventricular and deep subcortical white matter. The brainstem is unremarkable appearing. There is atrophy of the cerebellar vermis, greater than expected for the degree of global parenchymal atrophy. Contents of the sella turcica are unremarkable appearing. There is no mass effect placed on the optic chiasm. No enhancing intracranial mass/lesion. No evidence of pachymeningeal/leptomeningeal enhancement. Normal appearance of the major arterial structures in the mechoopda of [place]. The paranasal sinuses are clear. Partial bilateral mastoid effusions. Circumscribed 9 mm observation at the level of the right fossa of Rosenmuller. This lesion appears heterogeneous, though mostly hyper intense on T2. There is some intrinsic T1 hyperintensity. The bony orbits are unremarkable appearing. The intraconal and extraconal fat is unremarkable appearing. Extraocular muscles are symmetric. Bilateral lens replacement. There is otherwise normal contour and signal the globes. There is no pathologic enhancement of the optic nerves which are symmetric in appearance. Optic nerve sheaths are normal. Lacrimal apparatus is unremarkable appearing. Normal enhancement of the cavernous sinus. IMPRESSION: * No acute intracranial abnormality to account for patient's symptoms. * Normal morphology of the orbits and associated structures. * Incidental circumscribed 9 mm observation at the level of the right fossa of Rosenmuller. Though potentially representing a benign fossa of Rosenmuller cyst, intrinsic T1 signal does raise suspicion for a solid component. Consider direct visualization/sampling if indicated. * Mild global parenchymal atrophy with asymmetrically advanced atrophy of the cerebellar vermis. This is a nonspecific finding. Approved by Resident Sathish Charlton DO on 09/24/2023 3:51 AM I, Gilbert Jewell MD have personally reviewed the image(s) and agree with and/or edited the report Finalized by Gilbert Jewell MD on 09/24/2023 4:24 AM All available laboratory, imaging, and microbiology data has been personally reviewed in detail, and accessible in full per EMR. Medications: cyanocobalamin, 1,000 mcg, oral, Daily enoxaparin (LOVENOX) injection, 40 mg, subcutaneous, Daily methylPREDNISolone sodium succinate, 1,000 mg, intravenous, Q24H SIXTO sodium chloride, 3 mL, intravenous, Q12H SIXTO Infusion: dextrose 5 % in water, 100 mL/hr sodium chloride 0.9 %, 20 mL/hr, Last Rate: 20 mL/hr (09/24/23 1008) PRN medications: acetaminophen dextrose dextrose 5 % in water dextrose 50 % in water (D50W) glucagon (human recombinant) ondansetron sennosides-docusate sodium sodium chloride sodium chloride sodium chloride 0.9 % ASSESSMENT and plan: Active Hospital Problems Diagnosis Date Noted Vision blurred 09/23/2023 Stroke-like symptoms 09/23/2023 Resolved Problems No resolved problems to display. Rapidly progressing bilateral vision loss Elevated ESR and CRP Reviewed fundus pictures posted by ophthalmology Orbital and brain MRI negative for stroke or demyelination Continue with 1 gm solumedrol Vascular surgery consulted for temporal artery biopsy Antiphospholipids negative Vasculitis workup shows positive Anti centromere noted, unclear significance, appreciate rheum input. Thrombocytosis No previous thrombocytosis in the past, most recent platelet count in 2019 was 369 K. Could be reactive to steroids, iron-deficiency Peripheral smear, JAK2, BCR-abl mutation pending Hematology consult Normocytic anemia Low iron and iron sat, ferritin in elevated (could be acute phase reactant) Hemolysis workup: elevated haptoglobin and normal LDH, retic is pending SPEP, peripheral smear pending Folate normal, B12 borderline, MMA pending Reactive leukocytosis DVT prophylaxis: Lovenox Code Status: Full Disposition: To be determined later. Current care plan discussed in detail with the patient. SHe verbalized understanding. Further management will follow based on the clinical course of the patient and results of ongoing evaluation Electronically signed by: BART MILIAN MD 09/24/2023 Disclaimer Note: To increase efficiency, your provider may have prepared this document using voice recognition technology. In that case, if a word or phrase is confusing, or does not make sense, this is likely due to a recognition error within the program which was not discovered during the provider s review. If you believe an error has occurred, please notify your provider s office at your earliest convenience, so we can correct any mistakes. Images from the original note were not included. [facility] Neurology General Neurology Consultation Note Consult Neurology Service: [phone] Primary Team: [facility] Chief Complaint and Reason for Consultation: Vision loss History: Jose David is a 78 y.o. year old female for whom Neurology was consulted for chief complaint of vision loss. History was taken from the patient and chart review. Patient has no significant past medical history, she was doing well till Tuesday 09/19 when she started noticing blurry vision in her left eye, according to the patient she was seen by an eye doctor on that day, the patient was told that her optic disc is swollen, and the patient was given referral to eye center in [facility], on Friday and Friday, vision on the left eye worsened significantly and she lost her vision on the left eye. On Friday 09/22, patient came to [place] to see an eye doctor, who asked her to go to the ED. patient initially went to [facility], given Solu-Medrol 250 mg IV once, transferred to [facility] for further workup and ophthalmology evaluation. According to the patient, her right eye vision worsened significantly on Friday, and she lost her vision on both eyes. Patient had no past medical history, she has not taking any scheduled medications, patient lives with her daughter, she is driving and working. Walking with no assistive devices. Upon initial assessment in [facility], patient had complete vision loss on both eyes, she described seeing bright lights intermittently, patient said that few hours before she was able to see her cell phone. Patient denied any headache, painful eye movements, numbness, tingling or any other new symptoms. Interval History: Had brief episode this morning where she could see the room but subsequently lost. Had bright lights alone. Otherwise, resting comfortable and no other complaints. Rest of history per HPI Physical Exam Vital Signs: Vitals: 09/23/23 1150 BP: 144/77 Pulse: 105 Resp: 20 Temp: 36.7 C (98.1 F) SpO2: 97% General: Normotensive, in no acute distress. Cardiac Examination: Heart: RRR, no murmurs, no rubs, no gallops. Carotids: No bruit Peripheral Vascular System: Peripheral pulses intact Neurological Examination: Higher Mental Function: Orientated to time, place, person Attention span and concentration intact Recent and Remote Memory Intact Language intact Fund of knowledge appropriate Ophthalmological Examination: Clear conjunctiva, no cataracts. Optic disc is swollen and pale on both sides L<R Osman red spot in left eye Cranial Nerve Examination: II: Not tracking, no response to visual threat, vision impaired III, IV, & : EOM intact, no ptosis, no nystagmus seen. Pupils are dilated, sluggishly reactive on the left, brisk reactive on the right V: Facial sensation is intact. VII: no facial asymmetry, facial movement intact. VIII: hearing is normal. IX-X: Palate elevates in the midline. XI: Normal trapezius strength and/or movement. XII: Tongue movement is normal, position is midline and no fasciculations are observed. Tongue strength intact. Motor: Power -- No focal motor weakness noted in BL upper or lower extremities. Bulk and muscle tone are intact in BL upper and lower extremities. No rigidity or spasticity. No atrophy or abnormal movements noted. No dystonia, or motor tics. No bradykinesia, postural or kinetic tremor noted. No fasciculation or myotonia noted. No abnormal movements noticed. No evidence of pseudo bulbar paralysis; no sialorrhea, difficulties swallowing. No tremors were noted Deep Tendon Reflexes: Right, Left: Biceps 2, 2 Brachioradialis 2, 2 Patellae 2, 2 Plantar response upgoing, Ronn negative Sensory examination: Intact sensation to light touch equal and symmetrical bilateral upper and lower Cerebellar: No dysmetria Gait and station: Deferred Assessment: Jose David is 78 years old female patient with no significant PMH, currently being evaluated for progressive vision loss, started on the left eye, then progressed to the right eye. Visual acuity is very impaired currently, physical exam concerning for bilateral optic disc swelling and pallor. Osman red spot in right eye. ESR 114 CRP 13.3 CTH, head and neck CTA done at [facility], reportedly unremarkable Impression: Binocular vision loss concerning for bilateral giant cell arteritis vs embolic ischemia of bilateral central retinal arteries vs neuromyelitis optica Plan: MRI brain and orbit with and without contrast to evaluate for ischemia or mass Start IV solu-medrol 1000 mcg for 3 total days Inflammatory workup with SILVIA, RF, ANCA Coagulation workup TTE, consider cardiology consult for MAUREEN given concern for embolic phenomenon Consult vascular surgery for bilateral temporal artery biopsy Trevin López MD PGY-2 Neurology Resident Staffed with: Dr. Pizano This patient is being followed by the Neurology Resident service. Contact attending directly during these hours: Friday to 7:30-8:30 A.M. to Friday 12-1:00 p.m. Primary Neurology service: [phone] Consult neurology service: [phone] Resident Stroke Service: [phone] If the patient belongs to the Stroke TRAM service please contact the Stroke TRAM directly. Associated attestation - Sandy Pizano MD - 09/23/2023 3:09 PM EST Attending Attestation: I saw the patient. I performed the critical/braswell portions of the service. I was directly involved in the management and treatment plan of the patient. I reviewed the resident's note. Additional Notes/Findings: Please refer to my note as an addendum to the Neurology History and Physical by neurology resident dated 09/23/2023. Sandy Pizano MD, PhD Images from the original note were not included. [facility] Hospitalists Progress Note 09/23/2023 Patient Name: Jose David : 1945 Hospital Day: 1 SUBJECTIVE Follow-up for vision loss The patient seen and examined. No acute events over night. Patient reports that her vision started to improve intermittently after initiation of high-dose steroids. History reviewed. No pertinent past medical history. Past Surgical History: Procedure Laterality Date APPENDECTOMY TONSILLECTOMY TUBAL LIGATION OBJECTIVE Vital Signs: Temp: [36.6 C (97.9 F)-36.7 C (98.1 F)] 36.7 C (98.1 F) Pulse: [101-105] 105 Resp: [16-20] 20 BP: (136-148)/(74-86) 144/77 SpO2: [94 %-97 %] 97 % O2 Device: None (Room air) Weight: Body mass index is 21.21 kg/m . Admission weight: 52.6 kg (115 lb 15.4 oz) Wt Readings from Last 3 Encounters: 09/23/23 52.6 kg (115 lb 15.4 oz) Input/Output: Intake/Output Summary (Last 24 hours) at 09/23/2023 1336 Last data filed at 09/23/2023 1000 Gross per 24 hour Intake 248.38 ml Output -- Net 248.38 ml Physical Exam: General appearance: Alert, cooperative, no distress. Respiratory: Normal work of breathing. No use of accessory muscles. No wheezing, rhonchi or crackles. Cardiovascular: Regular rate and rhythm, S1, S2 normal, no murmur, rub or gallop. No LE edema. Abdomen: Soft, non-tender, no masses. No hernia. No hepatosplenomegaly. Skin: No rashes, lesions or ulcers. No induration or subcutaneous nodules. Psychiatric: Mood and affect appropriate, Appropriate judgment and insight. Alert and oriented. Labs/Imaging: Recent Results (from the past 24 hour(s)) Comprehensive metabolic panel Collection Time: 09/23/23 6:28 AM Result Value Ref Range Sodium 139 134 - 146 mmol/L Potassium, Bld 3.7 3.5 - 5.0 mmol/L Chloride 101 98 - 109 mmol/L CO2 25 22 - 32 mmol/L Anion gap 13 5 - 15 mmol/L BUN 14 5 - 27 mg/dL Creatinine 0.49 0.40 - 1.00 mg/dL Glucose 141 (H) 65 - 99 mg/dL Calcium 8.6 8.5 - 10.5 mg/dL Total Protein 6.9 6.0 - 8.0 g/dL Albumin 3.0 (L) 3.2 - 5.3 g/dL Alkaline Phosphatase 227 (H) 39 - 130 U/L AST 12 0 - 41 U/L ALT 11 0 - 31 U/L Total bilirubin 0.6 0.3 - 1.2 mg/dL eGFR (CKD-EPI)non-race dependent >90 >59 ml/min/1.73sq.m CBC auto differential Collection Time: 09/23/23 6:28 AM Result Value Ref Range White Blood Cells 11.1 (H) 4.0 - 11.0 X10E9/L RBC count 3.07 (L) 3.80 - 5.20 X10E12/L Hemoglobin 8.6 (L) 11.7 - 15.5 g/dL Hematocrit 26.2 (L) 35 - 47 % MCV 85 80 - 100 fL MCH 28.1 27 - 34 pg MCHC 32.9 32 - 36 g/dL RDW 14.6 11.5 - 15.0 % Platelets 917 (H) 150 - 450 X10E9/L MPV 6.3 (L) 7 - 12 fL % neutrophils 93.3 % % lymphocytes 3.6 % % monocytes 1.0 % % eosinophils 0.0 % % Basophils 2.1 % Neutrophils Absolute (A) 10.4 (H) 1.5 - 6.6 X10E9/L Lymphocytes Absolute 0.4 (L) 1.0 - 3.5 X10E9/L Monocytes Absolute 0.1 0 - 0.9 X10E9/L Eosinophils Absolute 0.0 0.0 - 0.4 X10E9/L Basophils Absolute 0.2 0.0 - 0.2 X10E9/L Erythrocyte Sedimentation Rate (ESR) Collection Time: 09/23/23 6:28 AM Result Value Ref Range Sed Rate 114 (H) 0 - 30 mm/h C-reactive protein Collection Time: 09/23/23 6:28 AM Result Value Ref Range CRP 13.3 (H) 0.000 - 0.744 mg/dL Iron and TIBC Collection Time: 09/23/23 6:28 AM Result Value Ref Range Iron 25 (L) 50 - 170 ug/dL Tibc-calc only do not order 179 (L) 250 - 425 ug/dL Iron Saturation 14 (L) 15 - 50 % SATURATION Ferritin Collection Time: 09/23/23 6:28 AM Result Value Ref Range Ferritin 478 (H) 11 - 307 ng/mL Folate Collection Time: 09/23/23 6:28 AM Result Value Ref Range Folate 13.0 >5.8 ng/mL Vitamin B12 Collection Time: 09/23/23 6:28 AM Result Value Ref Range Vitamin B-12 248 180 - 914 pg/mL CBC auto differential Collection Time: 09/23/23 8:18 AM Result Value Ref Range White Blood Cells 12.1 (H) 4.0 - 11.0 X10E9/L RBC count 3.27 (L) 3.80 - 5.20 X10E12/L Hemoglobin 9.1 (L) 11.7 - 15.5 g/dL Hematocrit 27.8 (L) 35 - 47 % MCV 85 80 - 100 fL MCH 27.8 27 - 34 pg MCHC 32.7 32 - 36 g/dL RDW 14.4 11.5 - 15.0 % Platelets 924 (H) 150 - 450 X10E9/L MPV 6.2 (L) 7 - 12 fL % neutrophils 95.5 % % lymphocytes 3.3 % % monocytes 1.0 % % eosinophils 0.0 % % Basophils 0.2 % Neutrophils Absolute (A) 11.5 (H) 1.5 - 6.6 X10E9/L Lymphocytes Absolute 0.4 (L) 1.0 - 3.5 X10E9/L Monocytes Absolute 0.1 0 - 0.9 X10E9/L Eosinophils Absolute 0.0 0.0 - 0.4 X10E9/L Basophils Absolute 0.0 0.0 - 0.2 X10E9/L Microbiology Results No results found for the last 168 hours. No results found. All available laboratory, imaging, and microbiology data has been personally reviewed in detail, and accessible in full per EMR. Medications: cyanocobalamin, 1,000 mcg, oral, Daily [START ON 09/24/2023] methylPREDNISolone sodium succinate, 1,000 mg, intravenous, Q24H SIXTO sodium chloride, 3 mL, intravenous, Q12H SIXTO Infusion: dextrose 5 % in water, 100 mL/hr sodium chloride 0.9 %, 20 mL/hr PRN medications: acetaminophen dextrose dextrose 5 % in water dextrose 50 % in water (D50W) glucagon (human recombinant) ondansetron sennosides-docusate sodium sodium chloride sodium chloride sodium chloride 0.9 % ASSESSMENT and plan: Active Hospital Problems Diagnosis Date Noted Vision blurred 09/23/2023 Stroke-like symptoms 09/23/2023 Resolved Problems No resolved problems to display. Bilateral rapidly progressing vision loss Differentials are giant cell arteritis, neuromyelitis optica, stroke, less likely secondary to thrombocytosis Elevated ESR and CRP Patient reports jaw pain x1 week after teeth extractions, no headache or joint stiffness Continue with high-dose steroids She will likely require temporal artery biopsy Orbital and brain MRI pending Appreciate Neurology and Ophthalmology recommendations Thrombocytosis No previous thrombocytosis in the past, most recent platelet count in 2019 was 369 K. Could be reactive to steroids, iron-deficiency Repeat CBC Iron studies, folate Peripheral smear JAK2 mutation Hematology consult DVT prophylaxis: Lovenox Code Status: Full Disposition: To be determined later. Current care plan discussed in detail with the patient. SHe verbalized understanding. Further management will follow based on the clinical course of the patient and results of ongoing evaluation Electronically signed by: BART MILIAN MD 09/23/2023 Disclaimer Note: To increase efficiency, your provider may have prepared this document using voice recognition technology. In that case, if a word or phrase is confusing, or does not make sense, this is likely due to a recognition error within the program which was not discovered during the provider s review. If you believe an error has occurred, please notify your provider s office at your earliest convenience, so we can correct any mistakes. documented in this encounter [facility] 09-26-2023 Progress note Formatting of t his note is different from the original. Images from the original note were not included. DISCHARGE PLANNING NOTE Services Requested: Services Requested Discharge Disposition: Home with self care Does the patient need discharge transportation arranged?: No Mobility issues discussed with transportation provider: No Initial DC Assessment Completed: Yes Patient Goals: Patient/Caregiver Goals Patient/Caregiver Goals: Home No Needs Goals: Goals Patient Stated (pt-stated) Evaluation of progress towards goal: Home with dtr, self care Discussed DC POC today during rounds with bedside nurse. Also discussed with the Pt and her daughter, Malinda. She will DC home self care with the support of her daughter and grandson. Declines any other needs. She was independent prior to admission. Reminder on her AVS to make a follow up appt with her PCP. - Sophia Rajan RN 09/26/23 11:05 AM [facility] 09-26-2023 Miscellaneous Notes Images from the original note were not included. DISCHARGE PLANNING NOTE Services Requested: Services Requested Discharge Disposition: Home with self care Does the patient need discharge transportation arranged?: No Mobility issues discussed with transportation provider: No Initial DC Assessment Completed: Yes Patient Goals: Patient/Caregiver Goals Patient/Caregiver Goals: Home No Needs Goals: Goals Patient Stated <enter goal here> (pt-stated) Evaluation of progress towards goal: Home with dtr, self care Discussed DC POC today during rounds with bedside nurse. Also discussed with the Pt and her daughter, Malinda. She will DC home self care with the support of her daughter and grandson. Declines any other needs. She was independent prior to admission. Reminder on her AVS to make a follow up appt with her PCP. - Sophia Rajan RN 09/26/23 11:05 AM Problem: Safety Goal: Patient will be injury free during hospitalization Description: INTERVENTIONS: 1. Assess patient's risk for falls and implement fall prevention plan of care per policy 2. Provide and maintain a safe environment 3. Proper use of double Identifiers 4. Medication administration using the 5 rights 5. Hand hygiene 6. Specimens are labeled at the bedside 7. Instruct patient/ patient malt liquors sales representative about use of safety devices 8. Include patient/ patient malt liquors sales representative in decisions related to safety Note: Evaluation of progress towards goal: No reports of injury during shift. Safety measures in place Problem: Low Risk Fall Score Description: Clifford Fall Score of 0 - 24 [facility] Goal: Patient should be free from fall Description: Interventions: 1. [place] to environment 2. Hourly rounds addressing the 4 P's (Pain, Positioning, Possessions, Potty) 3. Clear area of hazards (spills, clutter, electrical cords, unnecessary equipment) 4. Place equipment (bed & TV controls, call light, phone, urinal) within reach 5. Encourage patient to wear glasses and hearing aides as appropriate 6. Maintain bed in lowest position 7. Lock wheels on bed/wheelchair 8. Provide adequate lighting, including night light 9. Assess need for additional bedding, food/fluids, pain med's prior to sleep/routinely 10. Provide gripper slippers or personal non-skid footwear 11. Teach patient and patient malt liquors sales representative to maintain environment for safety and engage in all aspects of fall prevention program Outcome: Progressing Note: Evaluation of progress towards goal: Patient remained free from falls. Will continue to utilized fall prevention measures. DISCHARGE PLANNING NOTE Follow-up Discharge Planning Progress Note Per RN during discharge transition rounds, barriers to discharge are: Rheum cs, IVs, Temp-Art Bx Discharge Plan: Discussed DC POC today during rounds with bedside nurse. She will DC home self care with the support of her Dtr & grandson. Prior to admission she was independent and doesn't use any DME. Reminder on her AVS to make a follow up appt with her PCP. Care Navigation will continue to follow for any discharge needs - Sophia Rajan RN 09/25/23 1:09 PM Problem: Pain Goal: Patient goal is pain score less than 4, able to rest, and participant in treatment plan as appropriate Description: INTERVENTIONS: 1. Encourage patient or legal malt liquors sales representative to report early pain and ask for pain medicine when needed 2. Assess pain using appropriate pain scale and include the scale used when documenting 3. Administer analgesics based on type and severity of pain and evaluate response within appropriate time frame 4. Implement non-pharmacological measures as appropriate and evaluate response 5. Consider cultural and social influences on pain and pain management 6. Notify LIP if interventions ineffective or patient reports new pain 7. Monitor vital signs including pulse ox, end-tidal CO2 based on pain intervention 8. Reassess pain per policy 9. Teach patient or legal malt liquors sales representative interventions for comforting Outcome: Progressing Note: Evaluation of progress towards goal: Patient not reporting pain. Continue to monitor. Problem: Safety Goal: Patient will be injury free during hospitalization Description: INTERVENTIONS: 1. Assess patient's risk for falls and implement fall prevention plan of care per policy 2. Provide and maintain a safe environment 3. Proper use of double Identifiers 4. Medication administration using the 5 rights 5. Hand hygiene 6. Specimens are labeled at the bedside 7. Instruct patient/ patient malt liquors sales representative about use of safety devices 8. Include patient/ patient malt liquors sales representative in decisions related to safety Outcome: Progressing Note: Evaluation of progress towards goal: Patient free from falls and injury. Continue to monitor. Problem: Infection Goal: Absence of infection during hospitalization Description: Interventions: 1. Assess and monitor for signs and symptoms of infection 2. Monitor lab/diagnostic results 3. Monitor all insertion sites i.e., indwelling lines, tubes and drains 4. Monitor endotracheal (as able) and nasal secretions for changes in amount and color 5. Administer medications as ordered 6. Instruct and encourage patient and family to use good hand hygiene technique 7. Identify and instruct patient/patient malt liquors sales representative in use of appropriate isolation precautions for identified infection/symptoms 8. Provide and discuss with patient/patient malt liquors sales representative on educational MDRO sheet 9. Encourage and monitor nutritional status daily and consult fundraising director if indicated 10. Implement neutropenic guidelines as needed 11. Review exposure to history of communicable disease and recent travel history on admission 12. Encourage annual influenza vaccine 13. Encourage pneumonia vaccine Outcome: Progressing Note: Evaluation of progress towards goal: Patient free from signs of infection. Afebrile. Continue to Monitor. Problem: Knowledge Deficit Goal: Patient/patient malt liquors sales representative demonstrates understanding of disease process, treatment plan, medications, and discharge instructions Description: INTERVENTIONS 1. Complete learning assessment and assess knowledge base 2. Provide teaching at level of understanding 3. Provide teaching via preferred learning method(s) Outcome: Progressing Note: Evaluation of progress towards goal: Plan of care reviewed. Patient verbalizes understanding. Problem: Discharge Planning Goal: Discharge to post-acute care, other facility, or home with appropriate resources Description: Patient's goal is: INTERVENTIONS 1. Conduct assessment to determine patient/family and health care team treatment goals, and need for post-acute services based on payer coverage, community resources, and patient preferences, and barriers to discharge 2. Coordinate with Social work, Care Navigation, and Utilization Review to arrange appropriate level of services according to patient's needs based on patient preference and payer coverage in collaboration with the physician and health care team 3. Address psychosocial, clinical, and financial barriers to discharge as identified in assessment in conjunction with the patient/family and health care team 4. Consult appropriate ancillary services (i.e.. PT/OT/ST, etc) as needed 5. Communicate with and update the patient/family, physician, and health care team regarding progress on the discharge plan 6. Identify discharge learning needs (meds, wound care, etc). 7. Arrange for needed discharge transportation as appropriate Outcome: Progressing Note: Evaluation of progress towards goal: Discharge Plan Reviewed. Pt verbalizes understanding. Problem: Low Risk Fall Score Description: Clifford Fall Score of 0 - 24 or indicated by [facility] Assessment Goal: Patient should be free from fall Description: Interventions: 1. Bicknell to environment 2. Hourly rounds addressing the 4 P's (Pain, Positioning, Possessions, Potty) 3. Clear area of hazards (spills, clutter, electrical cords, unnecessary equipment) 4. Place equipment (bed & TV controls, call light, phone, urinal) within reach 5. Encourage patient to wear glasses and hearing aides as appropriate 6. Maintain bed in lowest position 7. Lock wheels on bed/wheelchair 8. Provide adequate lighting, including night light 9. Assess need for additional bedding, food/fluids, pain med's prior to sleep/routinely 10. Provide gripper slippers or personal non-skid footwear 11. Teach patient and patient malt liquors sales representative to maintain environment for safety and engage in all aspects of fall prevention program Outcome: Progressing Note: Evaluation of progress towards goal: Patient free from falls and injury. Continue to monitor. Problem: Moderate - High Risk Fall Score Description: Clifford Fall Score of =/> 25 or indicated by [facility] Assessment Goal: Patient should be free from fall Description: Interventions: 1. Bicknell to environment 2. Hourly rounds addressing the 4 P's (Pain, Positioning, Possessions, Potty) 3. Clear area of hazards (spills, clutter, electrical cords, unnecessary equipment) 4. Place equipment (bed & TV controls, call light, phone, urinal) within reach 5. Encourage patient to wear glasses and hearing aides as appropriate 6. Maintain bed in lowest position 7. Lock wheels on bed/wheelchair 8. Provide adequate lighting, including night light 9. Assess need for additional bedding, food/fluids, pain med's prior to sleep/routinely 10. Provide gripper slippers or personal non-skid footwear 11. Teach patient and patient malt liquors sales representative to maintain environment for safety and engage in all aspects of fall prevention program 12. Remind patient to call for help before getting out of bed 13. Initiate bed/chair/exit alarms supportive devices as appropriate, (chair wedge, no-skid floor mat, raised edge mattress, hip protectors) 14. Locate patient bed assignment for optimal visualization 15. Evaluate and identify Safe Patient Handling Equipment needs 16. Provide supervision when out of bed or chair 17. Utilize gait belt as needed to assist with ambulation 18. Place adaptive equipment (cane, walker) within reach 19. Request patient malt liquors sales representative bring adaptive equipment/mobility aids from home or obtain and provide as needed 20. Consult pharmacy regarding effects of med's affecting mobility, cognition, and alternatives 21. Obtain physician order for PT if risk factors associated with mobility are present 22. Obtain physician order for OT as appropriate 23. Utilize diversional activities 24. Educate patient and patient malt liquors sales representative how to maintain a safe environment during visitation times (notify nurse prior to leaving bedside) 25. Consider appropriateness of medical or non-medical billing clerk 26. Set up voiding schedule as appropriate (every 2 hours) Outcome: Progressing Note: Evaluation of progress towards goal: Patient free from falls and injury. Continue to monitor. Operative Note Date: September 25, 2023 Pre-op Diagnosis: Headache and visual deficit Post-op Diagnosis: Same Procedure(s) Performed: Bilateral temporal artery biopsy Surgeon: Kristel Reid MD Assistants: Juaquin Del Cid MD (PGY 2) Anesthesia: General EBL: 25 ml Total IV Fluids: 700 ml LR Indications for Procedure: This is a 78 year old female who presented to the hospital for possible giant cell arteritis. The patient noted sudden loss of vision in the left on eye last week and loss of vision in the right right several days ago. She was evaluated by her enterprise software engineer who felt that vision loss was secondary to temporal arteritis and the patient was sent to the ER for further evaluation. The patient was started on steroids and visual deficit did start to improve. The patient's ESR was elevated at 114 and CRP was 13.3. The patient was recommended to undergo bilateral temporal artery biopsy. The procedure was discussed with the patient and all risks, benefits, and alternatives were reviewed. The patient agreed to proceed. Consent was signed by the patient prior to the procedure. Description of Procedure: The patient was brought to the operating room and placed supine on the table. General anesthesia was induced without difficulty. The hair around the temporal area and the ears were clipped and the temporal area was prepped and draped in the usual sterile fashion. A time-out was performed verifying the correct patient, site, and procedure. Pre-operative antibiotics were administered within one hour of start time. We began on the left side. A longitudinal incision was made in the hairline just above the left ear using a scalpel. Dissection was carried through subcutaneous tissue using electrocautery. We identified the temporal artery and dissected a suitable portion of the vessel using the Bovie. Note that the vessel was very friable and inflamed at it was difficult to dissect the vessel away from the surrounding tissue. We tied the artery proximal and distal using 4 0 silk tie and divided the artery. The wound was carefully inspected and hemostasis was obtained using electrocautery. The incision was closed using interrupted 3-0 Vicryl suture placed in the deep dermis followed by a 4-0 subcuticular stitch. Dermabond was applied over the incision. The right temporal artery was obtained in a similar fashion and again the vessel was significantly inflamed and friable and actually was removed in several pieces because the vessel fell apart very easily. The tissue was also very inflamed and dissection was very difficult. The patient tolerated the procedure well and was transferred to the recovery area in stable condition. Specimens: ID Type Source Tests Collected by Time 1 : LEFT TEMPORAL ARTERY BIOPSY Tissue Artery SURGICAL PATHOLOGY Kristel Reid MD 09/25/2023 0808 2 : RIGHT TEMPORAL ARTERY BIOPSY Tissue Artery SURGICAL PATHOLOGY Kristel Reid MD 09/25/2023 0808 Implants: None Complications: None Disposition: PACU - hemodynamically stable. Condition: stable Kristel Reid MD [facility] Problem: Low Risk Fall Score Description: Clifford Fall Score of 0 - 24 or [facility] Goal: Patient should be free from fall Description: Interventions: 1. Bicknell to environment 2. Hourly rounds addressing the 4 P's (Pain, Positioning, Possessions, Potty) 3. Clear area of hazards (spills, clutter, electrical cords, unnecessary equipment) 4. Place equipment (bed & TV controls, call light, phone, urinal) within reach 5. Encourage patient to wear glasses and hearing aides as appropriate 6. Maintain bed in lowest position 7. Lock wheels on bed/wheelchair 8. Provide adequate lighting, including night light 9. Assess need for additional bedding, food/fluids, pain med's prior to sleep/routinely 10. Provide gripper slippers or personal non-skid footwear 11. Teach patient and patient malt liquors sales representative to maintain environment for safety and engage in all aspects of fall prevention program Outcome: Progressing Note: Evaluation of progress towards goal: Patient remained free from falls. Will continue to utilized fall prevention measures. Problem: Pain Goal: Patient goal is pain score less than 4, able to rest, and participant in treatment plan as appropriate Description: INTERVENTIONS: 1. Encourage patient or legal malt liquors sales representative to report early pain and ask for pain medicine when needed 2. Assess pain using appropriate pain scale and include the scale used when documenting 3. Administer analgesics based on type and severity of pain and evaluate response within appropriate time frame 4. Implement non-pharmacological measures as appropriate and evaluate response 5. Consider cultural and social influences on pain and pain management 6. Notify LIP if interventions ineffective or patient reports new pain 7. Monitor vital signs including pulse ox, end-tidal CO2 based on pain intervention 8. Reassess pain per policy 9. Teach patient or legal malt liquors sales representative interventions for comforting Outcome: Progressing Note: Evaluation of progress towards goal: Patient denies pain Problem: Safety Goal: Patient will be injury free during hospitalization Description: INTERVENTIONS: 1. Assess patient's risk for falls and implement fall prevention plan of care per policy 2. Provide and maintain a safe environment 3. Proper use of double Identifiers 4. Medication administration using the 5 rights 5. Hand hygiene 6. Specimens are labeled at the bedside 7. Instruct patient/ patient malt liquors sales representative about use of safety devices 8. Include patient/ patient malt liquors sales representative in decisions related to safety Outcome: Progressing Note: Evaluation of progress towards goal: Provided and maintained a safe environment. Patient remains free of falls and injuries. Problem: Infection Goal: Absence of infection during hospitalization Description: Interventions: 1. Assess and monitor for signs and symptoms of infection 2. Monitor lab/diagnostic results 3. Monitor all insertion sites i.e., indwelling lines, tubes and drains 4. Monitor endotracheal (as able) and nasal secretions for changes in amount and color 5. Administer medications as ordered 6. Instruct and encourage patient and family to use good hand hygiene technique 7. Identify and instruct patient/patient malt liquors sales representative in use of appropriate isolation precautions for identified infection/symptoms 8. Provide and discuss with patient/patient malt liquors sales representative on educational MDRO sheet 9. Encourage and monitor nutritional status daily and consult fundraising director if indicated 10. Implement neutropenic guidelines as needed 11. Review exposure to history of communicable disease and recent travel history on admission 12. Encourage annual influenza vaccine 13. Encourage pneumonia vaccine Outcome: Progressing Note: Evaluation of progress towards goal: Patient afebrile, Monitoring labs. Problem: Knowledge Deficit Goal: Patient/patient malt liquors sales representative demonstrates understanding of disease process, treatment plan, medications, and discharge instructions Description: INTERVENTIONS 1. Complete learning assessment and assess knowledge base 2. Provide teaching at level of understanding 3. Provide teaching via preferred learning method(s) Outcome: Progressing Note: Evaluation of progress towards goal: POC reviewed with patient, verbalizes understanding DISCHARGE PLANNING NOTE Follow-up Discharge Planning Progress Note Per RN during discharge transition rounds, barriers to discharge are: Echo, temp-art Bx, IVS Discharge Plan: Discussed DC POC today during rounds with bedside nurse. Also discussed with the Pt DC POC. Pt states she lives with her daughter who works but her grandson is there when her daughter is not. So someone is always there. Offered Home care but she declines stating she knows the layout. Informed her when she is DC and if she changes her mind, she can always go through her PCP. She will DC home self care with the support of her daughter and grandson. She was independent prior to admission and doesn't use any DME. Reminder on her AVS to make a follow up appt with her PCP. Care Navigation will continue to follow for any discharge needs - Sophia Rajan RN 09/24/23 10:57 AM Problem: Pain Goal: Patient goal is pain score less than 4, able to rest, and participant in treatment plan as appropriate Description: INTERVENTIONS: 1. Encourage patient or legal malt liquors sales representative to report early pain and ask for pain medicine when needed 2. Assess pain using appropriate pain scale and include the scale used when documenting 3. Administer analgesics based on type and severity of pain and evaluate response within appropriate time frame 4. Implement non-pharmacological measures as appropriate and evaluate response 5. Consider cultural and social influences on pain and pain management 6. Notify LIP if interventions ineffective or patient reports new pain 7. Monitor vital signs including pulse ox, end-tidal CO2 based on pain intervention 8. Reassess pain per policy 9. Teach patient or legal malt liquors sales representative interventions for comforting Outcome: Progressing Note: Evaluation of progress towards goal: monitor pain levels Problem: Safety Goal: Patient will be injury free during hospitalization Description: INTERVENTIONS: 1. Assess patient's risk for falls and implement fall prevention plan of care per policy 2. Provide and maintain a safe environment 3. Proper use of double Identifiers 4. Medication administration using the 5 rights 5. Hand hygiene 6. Specimens are labeled at the bedside 7. Instruct patient/ patient malt liquors sales representative about use of safety devices 8. Include patient/ patient malt liquors sales representative in decisions related to safety Outcome: Progressing Note: Evaluation of progress towards goal: patient will remain free from injury Problem: Infection Goal: Absence of infection during hospitalization Description: Interventions: 1. Assess and monitor for signs and symptoms of infection 2. Monitor lab/diagnostic results 3. Monitor all insertion sites i.e., indwelling lines, tubes and drains 4. Monitor endotracheal (as able) and nasal secretions for changes in amount and color 5. Administer medications as ordered 6. Instruct and encourage patient and family to use good hand hygiene technique 7. Identify and instruct patient/patient malt liquors sales representative in use of appropriate isolation precautions for identified infection/symptoms 8. Provide and discuss with patient/patient malt liquors sales representative on educational MDRO sheet 9. Encourage and monitor nutritional status daily and consult fundraising director if indicated 10. Implement neutropenic guidelines as needed 11. Review exposure to history of communicable disease and recent travel history on admission 12. Encourage annual influenza vaccine 13. Encourage pneumonia vaccine Outcome: Progressing Note: Evaluation of progress towards goal: monitor for signs and symptoms of infection Problem: Pain Goal: Patient goal is pain score less than 4, able to rest, and participant in treatment plan as appropriate Description: INTERVENTIONS: 1. Encourage patient or legal malt liquors sales representative to report early pain and ask for pain medicine when needed 2. Assess pain using appropriate pain scale and include the scale used when documenting 3. Administer analgesics based on type and severity of pain and evaluate response within appropriate time frame 4. Implement non-pharmacological measures as appropriate and evaluate response 5. Consider cultural and social influences on pain and pain management 6. Notify LIP if interventions ineffective or patient reports new pain 7. Monitor vital signs including pulse ox, end-tidal CO2 based on pain intervention 8. Reassess pain per policy 9. Teach patient or legal malt liquors sales representative interventions for comforting Outcome: Progressing Note: Evaluation of progress towards goal: Patient reporting pain. PRN pain medication provided. Relaxation encouraged. Emotional support given. Problem: Safety Goal: Patient will be injury free during hospitalization Description: INTERVENTIONS: 1. Assess patient's risk for falls and implement fall prevention plan of care per policy 2. Provide and maintain a safe environment 3. Proper use of double Identifiers 4. Medication administration using the 5 rights 5. Hand hygiene 6. Specimens are labeled at the bedside 7. Instruct patient/ patient malt liquors sales representative about use of safety devices 8. Include patient/ patient malt liquors sales representative in decisions related to safety Outcome: Progressing Note: Evaluation of progress towards goal: Patient free from falls and injury. Continue to monitor. Problem: Infection Goal: Absence of infection during hospitalization Description: Interventions: 1. Assess and monitor for signs and symptoms of infection 2. Monitor lab/diagnostic results 3. Monitor all insertion sites i.e., indwelling lines, tubes and drains 4. Monitor endotracheal (as able) and nasal secretions for changes in amount and color 5. Administer medications as ordered 6. Instruct and encourage patient and family to use good hand hygiene technique 7. Identify and instruct patient/patient malt liquors sales representative in use of appropriate isolation precautions for identified infection/symptoms 8. Provide and discuss with patient/patient malt liquors sales representative on educational MDRO sheet 9. Encourage and monitor nutritional status daily and consult fundraising director if indicated 10. Implement neutropenic guidelines as needed 11. Review exposure to history of communicable disease and recent travel history on admission 12. Encourage annual influenza vaccine 13. Encourage pneumonia vaccine Outcome: Progressing Note: Evaluation of progress towards goal: Patient receiving antibiotics as ordered. Continue to monitor. Problem: Knowledge Deficit Goal: Patient/patient malt liquors sales representative demonstrates understanding of disease process, treatment plan, medications, and discharge instructions Description: INTERVENTIONS 1. Complete learning assessment and assess knowledge base 2. Provide teaching at level of understanding 3. Provide teaching via preferred learning method(s) Outcome: Progressing Note: Evaluation of progress towards goal: Plan of care reviewed. Patient verbalizes understanding. Reinforcement is necessary. Continue to monitor. Problem: Discharge Planning Goal: Discharge to post-acute care, other facility, or home with appropriate resources Description: Patient's goal is: INTERVENTIONS 1. Conduct assessment to determine patient/family and health care team treatment goals, and need for post-acute services based on payer coverage, community resources, and patient preferences, and barriers to discharge 2. Coordinate with Social work, Care Navigation, and Utilization Review to arrange appropriate level of services according to patient's needs based on patient preference and payer coverage in collaboration with the physician and health care team 3. Address psychosocial, clinical, and financial barriers to discharge as identified in assessment in conjunction with the patient/family and health care team 4. Consult appropriate ancillary services (i.e.. PT/OT/ST, etc) as needed 5. Communicate with and update the patient/family, physician, and health care team regarding progress on the discharge plan 6. Identify discharge learning needs (meds, wound care, etc). 7. Arrange for needed discharge transportation as appropriate Outcome: Progressing Note: Evaluation of progress towards goal: Discharge Plan Reviewed. Pt verbalizes understanding. Reinforcement is necessary. Continue to monitor. Problem: Low Risk Fall Score Description: Clifford Fall Score of 0 - 24 or indicated by [facility] Assessment Goal: Patient should be free from fall Description: Interventions: 1. Bicknell to environment 2. Hourly rounds addressing the 4 P's (Pain, Positioning, Possessions, Potty) 3. Clear area of hazards (spills, clutter, electrical cords, unnecessary equipment) 4. Place equipment (bed & TV controls, call light, phone, urinal) within reach 5. Encourage patient to wear glasses and hearing aides as appropriate 6. Maintain bed in lowest position 7. Lock wheels on bed/wheelchair 8. Provide adequate lighting, including night light 9. Assess need for additional bedding, food/fluids, pain med's prior to sleep/routinely 10. Provide gripper slippers or personal non-skid footwear 11. Teach patient and patient malt liquors sales representative to maintain environment for safety and engage in all aspects of fall prevention program Outcome: Progressing Note: Evaluation of progress towards goal: Patient free from falls and injury. Continue to monitor. Images from the original note were not included. DISCHARGE PLANNING NOTE Discussed patient during rounds today. Met with patient and son and explained role. Patient is alert and oriented x 3. Patient was admitted for: stroke-like symptoms. Prior to arrival patient lived with her daughter in a 2 story home with 1 step to enter into home without handrail. Bedroom is on 2nd floor but she stated that there is one available on main level if needed. Bathroom on 1st. Patient reports support system: son and dtr. Confirmed PCP with patient: patient reports that her PCP left and that she is getting a new doctor. She will call to get an appointment set up for after d/c. Confirmed pharmacy with patient: [facility]. Previous DME at home: none. Previous Home Care agency: none. Patient denied any issues with affording food or medications. Hx of alcohol use: denied. Hx of illicit drug use: denied. Hx of tobacco use: denied. Patient's readmission risk is: 9%. Readmission risk will be avoided by: patient following up with new PCP after d/c. Plan is to return home with her dtr, self care . Patient's son reports that he will be able to transport at time of d/c. Barriers- ophthalmology consult, MRI. Services Requested: Services Requested Discharge Disposition: Home with self care Does the patient need discharge transportation arranged?: No Mobility issues discussed with transportation provider: No Initial DC Assessment Completed: Yes Patient Goals: Patient/Caregiver Goals Patient/Caregiver Goals: Home No Needs Goals: Goals <enter goal here> (pt-stated) Evaluation of progress towards goal: Home with dtr, self care - LIANE KEN 09/23/23 2:07 PM Consulted for MAUREEN to rule out embolic process in setting of sudden vision loss. Discussed with neurology, recommend surface echo with bubble study prior to consideration of MAUREEN. If TTE unremarkable and continued concerns, please let us know. ALANNA Rosario 09/23/23 1300 Problem: Safety Goal: Patient will be injury free during hospitalization Description: INTERVENTIONS: 1. Assess patient's risk for falls and implement fall prevention plan of care per policy 2. Provide and maintain a safe environment 3. Proper use of double Identifiers 4. Medication administration using the 5 rights 5. Hand hygiene 6. Specimens are labeled at the bedside 7. Instruct patient/ patient malt liquors sales representative about use of safety devices 8. Include patient/ patient malt liquors sales representative in decisions related to safety Outcome: Progressing Note: Evaluation of progress towards goal: Patient calls out appropriately. Problem: Infection Goal: Absence of infection during hospitalization Description: Interventions: 1. Assess and monitor for signs and symptoms of infection 2. Monitor lab/diagnostic results 3. Monitor all insertion sites i.e., indwelling lines, tubes and drains 4. Monitor endotracheal (as able) and nasal secretions for changes in amount and color 5. Administer medications as ordered 6. Instruct and encourage patient and family to use good hand hygiene technique 7. Identify and instruct patient/patient malt liquors sales representative in use of appropriate isolation precautions for identified infection/symptoms 8. Provide and discuss with patient/patient malt liquors sales representative on educational MDRO sheet 9. Encourage and monitor nutritional status daily and consult fundraising director if indicated 10. Implement neutropenic guidelines as needed 11. Review exposure to history of communicable disease and recent travel history on admission 12. Encourage annual influenza vaccine 13. Encourage pneumonia vaccine Outcome: Progressing Note: Evaluation of progress towards goal: Patient has no signs and symptoms of infection. Problem: Low Risk Fall Score Description: Clifford Fall Score of 0 - 24 or indicated by [facility] Assessment Goal: Patient should be free from fall Description: Interventions: 1. [place]nell to environment 2. Hourly rounds addressing the 4 P's (Pain, Positioning, Possessions, Potty) 3. Clear area of hazards (spills, clutter, electrical cords, unnecessary equipment) 4. Place equipment (bed & TV controls, call light, phone, urinal) within reach 5. Encourage patient to wear glasses and hearing aides as appropriate 6. Maintain bed in lowest position 7. Lock wheels on bed/wheelchair 8. Provide adequate lighting, including night light 9. Assess need for additional bedding, food/fluids, pain med's prior to sleep/routinely 10. Provide gripper slippers or personal non-skid footwear 11. Teach patient and patient malt liquors sales representative to maintain environment for safety and engage in all aspects of fall prevention program Outcome: Progressing Note: Evaluation of progress towards goal: Patient remained free from falls. Will continue to utilized fall prevention measures. [facility] care [facility] Problem: Safety Goal: Patient will be injury free during hospitalization Description: INTERVENTIONS: 1. Assess patient's risk for falls and implement fall prevention plan of care per policy 2. Provide and maintain a safe environment 3. Proper use of double Identifiers 4. Medication administration using the 5 rights 5. Hand hygiene 6. Specimens are labeled at the bedside 7. Instruct patient/ patient malt liquors sales representative about use of safety devices 8. Include patient/ patient malt liquors sales representative in decisions related to safety Note: Evaluation of progress towards goal: No reports of injury during shift. Safety measures in [facility] care [facility] Problem: Low Risk Fall Score Description: Clifford Fall Score of 0 - 24 or indicated by [facility] Assessment Goal: Patient should be free from fall Description: Interventions: 1. Bicknell to environment 2. Hourly rounds addressing the 4 P's (Pain, Positioning, Possessions, Potty) 3. Clear area of hazards (spills, clutter, electrical cords, unnecessary equipment) 4. Place equipment (bed & TV controls, call light, phone, urinal) within reach 5. Encourage patient to wear glasses and hearing aides as appropriate 6. Maintain bed in lowest position 7. Lock wheels on bed/wheelchair 8. Provide adequate lighting, including night light 9. Assess need for additional bedding, food/fluids, pain med's prior to sleep/routinely 10. Provide gripper slippers or personal non-skid footwear 11. Teach patient and patient malt liquors sales representative to maintain environment for safety and engage in all aspects of fall prevention program Outcome: Progressing Note: Evaluation of progress towards goal: Patient remained free from falls. Will continue to utilized fall prevention measures. [facility] 09-25-2023 Progress note Formatting of t his note might be different from the original. DISCHARGE PLANNING NOTE Follow-up Discharge Planning Progress Note Per RN during discharge transition rounds, barriers to discharge are: Rheum cs, IVs, Temp-Art Bx Discharge Plan: Discussed DC POC today during rounds with bedside nurse. She will DC home self care with the support of her Dtr & bri. Prior to admission she was independent and doesn't use any DME. Reminder on her AVS to make a follow up appt with her PCP. Care Navigation will continue to follow for any discharge needs - Spohia Rajan RN 09/25/23 1:09 PM [facility] [place] [facility] 09-25-2023 Plan of care note Problem: Pain Goal: Patient goal is pain score less than 4, able to rest, and participant in treatment plan as appropriate Description: INTERVENTIONS: 1. Encourage patient or legal malt liquors sales representative to report early pain and ask for pain medicine when needed 2. Assess pain using appropriate pain scale and include the scale used when documenting 3. Administer analgesics based on type and severity of pain and evaluate response within appropriate time frame 4. Implement non-pharmacological measures as appropriate and evaluate response 5. Consider cultural and social influences on pain and pain management 6. Notify LIP if interventions ineffective or patient reports new pain 7. Monitor vital signs including pulse ox, end-tidal CO2 based on pain intervention 8. Reassess pain per policy 9. Teach patient or legal malt liquors sales representative interventions for comforting Outcome: Progressing Note: Evaluation of progress towards goal: Patient not reporting pain. Continue to monitor. Problem: Safety Goal: Patient will be injury free during hospitalization Description: INTERVENTIONS: 1. Assess patient's risk for falls and implement fall prevention plan of care per policy 2. Provide and maintain a safe environment 3. Proper use of double Identifiers 4. Medication administration using the 5 rights 5. Hand hygiene 6. Specimens are labeled at the bedside 7. Instruct patient/ patient malt liquors sales representative about use of safety devices 8. Include patient/ patient malt liquors sales representative in decisions related to safety Outcome: Progressing Note: Evaluation of progress towards goal: Patient free from falls and injury. Continue to monitor. Problem: Infection Goal: Absence of infection during hospitalization Description: Interventions: 1. Assess and monitor for signs and symptoms of infection 2. Monitor lab/diagnostic results 3. Monitor all insertion sites i.e., indwelling lines, tubes and drains 4. Monitor endotracheal (as able) and nasal secretions for changes in amount and color 5. Administer medications as ordered 6. Instruct and encourage patient and family to use good hand hygiene technique 7. Identify and instruct patient/patient malt liquors sales representative in use of appropriate isolation precautions for identified infection/symptoms 8. Provide and discuss with patient/patient malt liquors sales representative on educational MDRO sheet 9. Encourage and monitor nutritional status daily and consult fundraising director if indicated 10. Implement neutropenic guidelines as needed 11. Review exposure to history of communicable disease and recent travel history on admission 12. Encourage annual influenza vaccine 13. Encourage pneumonia vaccine Outcome: Progressing Note: Evaluation of progress towards goal: Patient free from signs of infection. Afebrile. Continue to Monitor. Problem: Knowledge Deficit Goal: Patient/patient malt liquors sales representative demonstrates understanding of disease process, treatment plan, medications, and discharge instructions Description: INTERVENTIONS 1. Complete learning assessment and assess knowledge base 2. Provide teaching at level of understanding 3. Provide teaching via preferred learning method(s) Outcome: Progressing Note: Evaluation of progress towards goal: Plan of care reviewed. Patient verbalizes understanding. Problem: Discharge Planning Goal: Discharge to post-acute care, other facility, or home with appropriate resources Description: Patient's goal is: INTERVENTIONS 1. Conduct assessment to determine patient/family and health care team treatment goals, and need for post-acute services based on payer coverage, community resources, and patient preferences, and barriers to discharge 2. Coordinate with Social work, Care Navigation, and Utilization Review to arrange appropriate level of services according to patient's needs based on patient preference and payer coverage in collaboration with the physician and health care team 3. Address psychosocial, clinical, and financial barriers to discharge as identified in assessment in conjunction with the patient/family and health care team 4. Consult appropriate ancillary services (i.e.. PT/OT/ST, etc) as needed 5. Communicate with and update the patient/family, physician, and health care team regarding progress on the discharge plan 6. Identify discharge learning needs (meds, wound care, etc). 7. Arrange for needed discharge transportation as appropriate Outcome: Progressing Note: Evaluation of progress towards goal: Discharge Plan Reviewed. Pt verbalizes understanding. Problem: Low Risk Fall Score Description: Clifford Fall Score of 0 - 24 or indicated by [facility] Assessment Goal: Patient should be free from fall Description: Interventions: 1. Bicknell to environment 2. Hourly rounds addressing the 4 P's (Pain, Positioning, Possessions, Potty) 3. Clear area of hazards (spills, clutter, electrical cords, unnecessary equipment) 4. Place equipment (bed & TV controls, call light, phone, urinal) within reach 5. Encourage patient to wear glasses and hearing aides as appropriate 6. Maintain bed in lowest position 7. Lock wheels on bed/wheelchair 8. Provide adequate lighting, including night light 9. Assess need for additional bedding, food/fluids, pain med's prior to sleep/routinely 10. Provide gripper slippers or personal non-skid footwear 11. Teach patient and patient malt liquors sales representative to maintain environment for safety and engage in all aspects of fall prevention program Outcome: Progressing Note: Evaluation of progress towards goal: Patient free from falls and injury. Continue to monitor. Problem: Moderate - High Risk Fall Score Description: Clifford Fall Score of =/> 25 or indicated by [facility] Assessment Goal: Patient should be free from fall Description: Interventions: 1. Bicknell to environment 2. Hourly rounds addressing the 4 P's (Pain, Positioning, Possessions, Potty) 3. Clear area of hazards (spills, clutter, electrical cords, unnecessary equipment) 4. Place equipment (bed & TV controls, call light, phone, urinal) within reach 5. Encourage patient to wear glasses and hearing aides as appropriate 6. Maintain bed in lowest position 7. Lock wheels on bed/wheelchair 8. Provide adequate lighting, including night light 9. Assess need for additional bedding, food/fluids, pain med's prior to sleep/routinely 10. Provide gripper slippers or personal non-skid footwear 11. Teach patient and patient malt liquors sales representative to maintain environment for safety and engage in all aspects of fall prevention program 12. Remind patient to call for help before getting out of bed 13. Initiate bed/chair/exit alarms supportive devices as appropriate, (chair wedge, no-skid floor mat, raised edge mattress, hip protectors) 14. Locate patient bed assignment for optimal visualization 15. Evaluate and identify Safe Patient Handling Equipment needs 16. Provide supervision when out of bed or chair 17. Utilize gait belt as needed to assist with ambulation 18. Place adaptive equipment (cane, walker) within reach 19. Request patient malt liquors sales representative bring adaptive equipment/mobility aids from home or obtain and provide as needed 20. Consult pharmacy regarding effects of med's affecting mobility, cognition, and alternatives 21. Obtain physician order for PT if risk factors associated with mobility are present 22. Obtain physician order for OT as appropriate 23. Utilize diversional activities 24. Educate patient and patient malt liquors sales representative how to maintain a safe environment during visitation times (notify nurse prior to leaving bedside) 25. Consider appropriateness of medical or non-medical billing clerk 26. Set up voiding schedule as appropriate (every 2 hours) Outcome: Progressing Note: Evaluation of progress towards goal: Patient free from falls and injury. Continue to monitor. [facility] 09-25-2023 Consult note Associated Order (s): IP CONSULT TO RHEUMATOLOGY Images from the original note were not included. 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 Positive NA by reflex, RF and centromere antibody -During this admission she had workup done which showed positive SILVIA screen, mildly elevated rheumatoid factor at 21 and elevated anticentromere antibody. -Anca ribosomal antibody, SSA, SSB, scleroderma antibody, Tiki 1, Mejia, [employer]UCK LE[employer]ING [employer]GER, anti dsDNA, anti chromatin were negative. -No concern for RA or scleroderma given lack of clinical symptoms Discussed with attending Dr. Romero Shah PGY-5, Rheumatology CHIEF COMPLAINT: Visual loss HISTORY OF PRESENT ILLNESS: Jose David is a 78 y.o. White or female who presents with no significant past medical history presented to [facility] 09/24 for concerns of vision loss in left eye. Patient was evaluated by device sales consultant on 09/19/2023 due to blurry vision left eye. During the appointment she was told that her optic disc was swollen and was referred to Ophthalmology. Her vision continued to worsen and over the weekend she also all vision in left eye. To developed decreased vision in her right eye and was recommended to present to the ER for concerns of giant cell arteritis. Initially at [facility] she was given Solu-Medrol 250 mg IV 1 dose and then transferred to [facility]. On presenting to [facility], she had complete vision loss in both eyes. She was started on IV Solu-Medrol 1000 mg for 3 days. She underwent bilateral temporal artery biopsy on 09/25/2023. During this admission she had workup done which showed positive SILVIA screen, mildly elevated rheumatoid factor at 21 and elevated anticentromere antibody. Anca ribosomal antibody, SSA, SSB, scleroderma antibody, Tiki 1, Mejia, [employer]ING [employer]NAGER, anti dsDNA, anti chromatin were negative. PAST MEDICAL HISTORY: History reviewed. No pertinent past medical history. PAST SURGICAL HISTORY: Past Surgical History: Procedure Laterality Date APPENDECTOMY TONSILLECTOMY TUBAL LIGATION ALLERGIES: Allergies Allergen Reactions Penicillin Confusion and Fever HOME MEDICATIONS: Medications Prior to Admission Medication Sig Dispense Refill Last Dose acetaminophen (TYLENOL EXTRA STRENGTH) 500 mg tablet Take 1 tablet (500 mg total) by mouth every 6 (six) hours as needed for pain. Other - as prescribed SOCIAL HISTORY: Social History Socioeconomic History Marital status: Spouse name: Not on file Number of children: Not on file Years of education: Not on file Highest education level: Not on file Occupational History Not on file Tobacco Use Smoking status: Never Smokeless tobacco: Never Substance and Sexual Activity Alcohol use: Never Drug use: Never Sexual activity: Defer Other Topics Concern Not on file Social History Narrative Not on file Social Determinants of Health Financial Resource Strain: Not on file Food Insecurity: Not on file Transportation Needs: Not on file Physical Activity: Not on file Stress: Not on file Social Connections: Not on file Interpersonal Safety: Not on file Housing Instability: Not on file FAMILY HISTORY: History reviewed. No pertinent family history. REVIEW OF SYSTEMS: CONSTITUTIONAL: Patient denies fevers, chills, sweats and weight changes. EYES: no vision in b/l eyes EARS, NOSE, AND THROAT: No difficulties with hearing. No symptoms of rhinitis or sore throat. CARDIOVASCULAR: Patient denies chest pains, palpitations, orthopnea and paroxysmal nocturnal dyspnea. RESPIRATORY: No dyspnea on exertion, no wheezing or cough. GI: No nausea, vomiting, diarrhea, constipation, abdominal pain, hematochezia or melena. : No urinary hesitancy or dribbling. No nocturia or urinary frequency. No abnormal urethral discharge. MUSCULOSKELETAL: No myalgias or arthralgias. NEUROLOGIC: No chronic headaches, no seizures. Patient denies numbness, tingling or weakness PHYSICAL EXAM: Vital Signs Blood pressure 143/83, pulse 81, temperature 36.4 C (97.6 F), temperature source Oral, resp. rate 11, height 157.5 cm (5' 2 ), weight 52.6 kg (115 lb 15.4 oz), SpO2 95%. Respiratory Source O2 Device: Endotracheal tube Admission Weight Weight: 52.6 kg (115 lb 15.4 oz) General Appearance Healthy, alert, active, cooperative, and in no distress Head Normocephalic, without obvious abnormality, atraumatic Eyes b/l vision loss ENT ENT exam normal, no neck nodes or sinus tenderness Neck no adenopathy, no carotid bruit, no JVD, supple, symmetrical, trachea midline, and thyroid not enlarged, symmetric, no tenderness/mass/nodules Lungs clear to auscultation bilaterally Heart: regular rate and rhythm, S1, S2 normal, no murmur, click, rub or gallop Abdomen soft, non-tender; bowel sounds normal; no masses, no organomegaly Extremities extremities normal, atraumatic, no cyanosis or edema Skin Skin color, texture, turgor normal. No rashes or lesions Neurologic: Grossly normal Imaging Echo complete W/O contrast Result Date: 09/24/2023 Left Ventricle: There is mild concentric increased wall thickness/hypertrophy. Systolic function is normal with an ejection fraction of 60-65%. The quantitative EF by 2D Dorado biplane is 63%. No segmental wall motion abnormalities. Aortic Valve: The aortic valve is trileaflet. There is mild sclerosis. Mitral Valve: The leaflets are mildly thickened. There is mild posterior annular calcification. There is mild to moderate regurgitation. There is no evidence of mitral valve stenosis. MR orbit with and without contrast Result Date: 09/24/2023 EXAM:MR ORBIT W WO CONT INDICATION: Optic neuritis suspected COMPARISON: CT brain 09/13/2023 TECHNIQUE/PROTOCOL: Multiplanar multisequence MRI of the brain and MRI orbits pre and post contrast. CONTRAST: 10mL ProHance IV. FINDINGS: No acute diffusion signal abnormality. There is no midline shift, mass effect, or acute intracranial hemorrhage. Mild global parenchymal atrophy. No significant T2/FLAIR signal in the periventricular and deep subcortical white matter. The brainstem is unremarkable appearing. There is atrophy of the cerebellar vermis, greater than expected for the degree of global parenchymal atrophy. Contents of the sella turcica are unremarkable appearing. There is no mass effect placed on the optic chiasm. No enhancing intracranial mass/lesion. No evidence of pachymeningeal/leptomeningeal enhancement. Normal appearance of the major arterial structures in the mechoopda of [place]. The paranasal sinuses are clear. Partial bilateral mastoid effusions. Circumscribed 9 mm observation at the level of the right fossa of Rosenmuller. This lesion appears heterogeneous, though mostly hyper intense on T2. There is some intrinsic T1 hyperintensity. The bony orbits are unremarkable appearing. The intraconal and extraconal fat is unremarkable appearing. Extraocular muscles are symmetric. Bilateral lens replacement. There is otherwise normal contour and signal the globes. There is no pathologic enhancement of the optic nerves which are otherwise symmetric in appearance. Optic nerve sheaths are normal. Lacrimal apparatus is unremarkable appearing. Normal enhancement of the cavernous sinus. IMPRESSION: * No acute intracranial abnormality to account for patient's symptoms. * Normal morphology of the orbits and associated structures. * Incidental circumscribed 9 mm observation the level of the right fossa of Rosenmuller. Though potentially representing a benign fossa of Rosenmuller cyst, intrinsic T1 signal does raise suspicion for solid component. Consider direct visualization/sampling if indicated. * Mild global parenchymal atrophy with asymmetrically advanced atrophy of the cerebellar vermis. This is a nonspecific finding. Approved by Resident Sathish Charlton DO on 09/24/2023 4:18 AM I, Gilbert Jewell MD have personally reviewed the image(s) and agree with and/or edited the report Finalized by Gilbert Jewell MD on 09/24/2023 4:25 AM MR brain with and without contrast Result Date: 09/24/2023 MR BRAIN W WO CONT CLINICAL INFORMATION: Ophthalmoplegia, initially monocular vision loss 09/19/2023, now presenting with binocular vision loss. COMPARISON: CT brain 09/13/2023 PROCEDURE: Routine MRI Brain was obtained before and after the uncomplicated intravenous administration of 10 mL ProHance. Multisequence, multiplanar imaging was obtained. FINDINGS: No acute diffusion signal abnormality. There is no midline shift, mass effect, or acute intracranial hemorrhage. Mild global parenchymal atrophy. No significant T2/FLAIR signal in the periventricular and deep subcortical white matter. The brainstem is unremarkable appearing. There is atrophy of the cerebellar vermis, greater than expected for the degree of global parenchymal atrophy. Contents of the sella turcica are unremarkable appearing. There is no mass effect placed on the optic chiasm. No enhancing intracranial mass/lesion. No evidence of pachymeningeal/leptomeningeal enhancement. Normal appearance of the major arterial structures in the mechoopda of Howell. The paranasal sinuses are clear. Partial bilateral mastoid effusions. Circumscribed 9 mm observation at the level of the right fossa of Rosenmuller. This lesion appears heterogeneous, though mostly hyper intense on T2. There is some intrinsic T1 hyperintensity. The bony orbits are unremarkable appearing. The intraconal and extraconal fat is unremarkable appearing. Extraocular muscles are symmetric. Bilateral lens replacement. There is otherwise normal contour and signal the globes. There is no pathologic enhancement of the optic nerves which are symmetric in appearance. Optic nerve sheaths are normal. Lacrimal apparatus is unremarkable appearing. Normal enhancement of the cavernous sinus. IMPRESSION: * No acute intracranial abnormality to account for patient's symptoms. * Normal morphology of the orbits and associated structures. * Incidental circumscribed 9 mm observation at the level of the right fossa of Rosenmuller. Though potentially representing a benign fossa of Rosenmuller cyst, intrinsic T1 signal does raise suspicion for a solid component. Consider direct visualization/sampling if indicated. * Mild global parenchymal atrophy with asymmetrically advanced atrophy of the cerebellar vermis. This is a nonspecific finding. Approved by Resident Sathish Charlton DO on 09/24/2023 3:51 AM IGilbert MD have personally reviewed the image(s) and agree with and/or edited the report Finalized by Gilbert Jewell MD on 09/24/2023 4:24 AM Lab Review Recent Results (from the past 48 hour(s)) Homocysteine total Collection Time: 09/23/23 12:56 PM Result Value Ref Range Homocysteine 9.29 3.36 - 20.44 mcmol/L ANCA Collection Time: 09/23/23 12:56 PM Result Value Ref Range ANCA See Below Anti cardiolipin AB IgG IgA IgM Collection Time: 09/23/23 12:56 PM Result Value Ref Range Anticardiolipin IgA <2.0 0 - 19.9 APL Anticardiolipin IgM Ab <1.5 0 - 19.9 MPL Anticardiolipin IgG <1.6 0 - 19.9 GPL Hepatitis panel, acute Collection Time: 09/23/23 12:56 PM Result Value Ref Range Hepatitis B Surface Ag Negative Negative^Negative Hep B Core IgM Ab Negative Negative^Negative Hep A IgM Ab Non-Reactive Non-Reactive^Non-Reactive Anti HCV w/ PCR reflex Non-Reactive Non-Reactive^Non-Reactive Beta-2 glycoprotein antibodies Collection Time: 09/23/23 12:56 PM Result Value Ref Range Beta-2 gp1 IgA <2.0 0.0 - 19.9 u/mL Beta-2 gp1 IgM 4.1 0.0 - 19.9 u/mL Beta-2 gp1 IgG <1.4 0.0 - 19.9 u/mL Haptoglobin Collection Time: 09/23/23 12:56 PM Result Value Ref Range Haptoglobin 613 (H) 32 - 228 mg/dL Immunoelectrophoresis for Therapy Monitoring Collection Time: 09/23/23 12:56 PM Result Value Ref Range IgA 180 68 - 378 mg/dL IgM 285 (H) 45 - 281 mg/dL IgG 992 635 - 1,741 mg/dL Free [place] Lt Chains 2.91 (H) 0.33 - 1.94 mg/dL Free Lambda Lt Chains 2.38 0.57 - 2.63 mg/dL Free kecia/lambda ratio 1.22 0.26 - 1.65 Immune profile inter PENDING LDH Collection Time: 09/23/23 12:56 PM Result Value Ref Range LDH 140 100 - 235 U/L Protein electrophoresis, serum Collection Time: 09/23/23 12:56 PM Result Value Ref Range Total Protein 6.1 6.0 - 8.0 g/dL Albumin 2.5 (L) 3.4 - 5.3 g/dL Alpha 1 0.6 (H) 0.1 - 0.4 g/dL Alpha 2 1.2 (H) 0.4 - 1.1 g/dL Beta 0.8 0.5 - 1.2 g/dL Gamma Globulin 1.0 0.5 - 1.6 g/dL Prot. electrophoresis interp PENDING Direct Clint Collection Time: 09/23/23 2:00 PM Result Value Ref Range Polyspecific HENRRY Negative CBC auto differential Collection Time: 09/24/23 9:11 AM Result Value Ref Range White Blood Cells 18.9 (H) 4.0 - 11.0 X10E9/L RBC count 3.00 (L) 3.80 - 5.20 X10E12/L Hemoglobin 8.3 (L) 11.7 - 15.5 g/dL Hematocrit 25.6 (L) 35 - 47 % MCV 85 80 - 100 fL MCH 27.8 27 - 34 pg MCHC 32.5 32 - 36 g/dL RDW 14.8 11.5 - 15.0 % Platelets 902 (H) 150 - 450 X10E9/L MPV 6.5 (L) 7 - 12 fL % neutrophils 86.2 % % lymphocytes 8.3 % % monocytes 5.0 % % eosinophils 0.0 % % Basophils 0.5 % Neutrophils Absolute (A) 16.3 (H) 1.5 - 6.6 X10E9/L Lymphocytes Absolute 1.6 1.0 - 3.5 X10E9/L Monocytes Absolute 1.0 (H) 0 - 0.9 X10E9/L Eosinophils Absolute 0.0 0.0 - 0.4 X10E9/L Basophils Absolute 0.1 0.0 - 0.2 X10E9/L Basic Metabolic Panel Collection Time: 09/24/23 9:11 AM Result Value Ref Range Sodium 140 134 - 146 mmol/L Potassium, Bld 3.5 3.5 - 5.0 mmol/L Chloride 101 98 - 109 mmol/L CO2 29 22 - 32 mmol/L Anion gap 10 5 - 15 mmol/L BUN 22 5 - 27 mg/dL Creatinine 0.61 0.40 - 1.00 mg/dL Glucose 98 65 - 99 mg/dL Calcium 8.5 8.5 - 10.5 mg/dL eGFR (CKD-EPI)non-race dependent >90 >59 ml/min/1.73sq.m Reticulocytes Collection Time: 09/24/23 9:11 AM Result Value Ref Range Reticulocyte 2.3 (H) 0.4 - 2.2 % Associated attestation - Romero, Jt Milian MD - 09/25/2023 7:47 PM EST I have seen, examined and performed braswell parts of this encounter with my resident and I agree with the assessment and plan. [facility] 09-25-2023 Consult note Associated Order (s): IP CONSULT TO RHEUMATOLOGY Images from the original note were not included. 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 Positive NA by reflex, RF and centromere antibody -During this admission she had workup done which showed positive SILVIA screen, mildly elevated rheumatoid factor at 21 and elevated anticentromere antibody. -Anca ribosomal antibody, SSA, SSB, scleroderma antibody, Tiki 1, Mejia, TRUCK LEASING [employer]NAGER, anti dsDNA, anti chromatin were negative. -No concern for RA or scleroderma given lack of clinical symptoms Discussed with attending Dr. Romero Shah PGY-5, Rheumatology CHIEF COMPLAINT: Visual loss HISTORY OF PRESENT ILLNESS: Jose David is a 78 y.o. White or female who presents with no significant past medical history presented to [facility] 09/24 for concerns of vision loss in left eye. Patient was evaluated by device sales consultant on 09/19/2023 due to blurry vision left eye. During the appointment she was told that her optic disc was swollen and was referred to Ophthalmology. Her vision continued to worsen and over the weekend she also all vision in left eye. To developed decreased vision in her right eye and was recommended to present to the ER for concerns of giant cell arteritis. Initially at [facility] she was given Solu-Medrol 250 mg IV 1 dose and then transferred to [facility]. On presenting to [facility], she had complete vision loss in both eyes. She was started on IV Solu-Medrol 1000 mg for 3 days. She underwent bilateral temporal artery biopsy on 09/25/2023. During this admission she had workup done which showed positive SILVIA screen, mildly elevated rheumatoid factor at 21 and elevated anticentromere antibody. Anca ribosomal antibody, SSA, SSB, scleroderma antibody, Tiki 1, Mejia, TRUCK LEASING MANAGER, anti dsDNA, anti chromatin were negative. PAST MEDICAL HISTORY: History reviewed. No pertinent past medical history. PAST SURGICAL HISTORY: Past Surgical History: Procedure Laterality Date APPENDECTOMY TONSILLECTOMY TUBAL LIGATION ALLERGIES: Allergies Allergen Reactions Penicillin Confusion and Fever HOME MEDICATIONS: Medications Prior to Admission Medication Sig Dispense Refill Last Dose acetaminophen (TYLENOL EXTRA STRENGTH) 500 mg tablet Take 1 tablet (500 mg total) by mouth every 6 (six) hours as needed for pain. Other - as prescribed SOCIAL HISTORY: Social History Socioeconomic History Marital status: Spouse name: Not on file Number of children: Not on file Years of education: Not on file Highest education level: Not on file Occupational History Not on file Tobacco Use Smoking status: Never Smokeless tobacco: Never Substance and Sexual Activity Alcohol use: Never Drug use: Never Sexual activity: Defer Other Topics Concern Not on file Social History Narrative Not on file Social Determinants of Health Financial Resource Strain: Not on file Food Insecurity: Not on file Transportation Needs: Not on file Physical Activity: Not on file Stress: Not on file Social Connections: Not on file Interpersonal Safety: Not on file Housing Instability: Not on file FAMILY HISTORY: History reviewed. No pertinent family history. REVIEW OF SYSTEMS: CONSTITUTIONAL: Patient denies fevers, chills, sweats and weight changes. EYES: no vision in b/l eyes EARS, NOSE, AND THROAT: No difficulties with hearing. No symptoms of rhinitis or sore throat. CARDIOVASCULAR: Patient denies chest pains, palpitations, orthopnea and paroxysmal nocturnal dyspnea. RESPIRATORY: No dyspnea on exertion, no wheezing or cough. GI: No nausea, vomiting, diarrhea, constipation, abdominal pain, hematochezia or melena. : No urinary hesitancy or dribbling. No nocturia or urinary frequency. No abnormal urethral discharge. MUSCULOSKELETAL: No myalgias or arthralgias. NEUROLOGIC: No chronic headaches, no seizures. Patient denies numbness, tingling or weakness PHYSICAL EXAM: Vital Signs Blood pressure 143/83, pulse 81, temperature 36.4 C (97.6 F), temperature source Oral, resp. rate 11, height 157.5 cm (5' 2 ), weight 52.6 kg (115 lb 15.4 oz), SpO2 95%. Respiratory Source O2 Device: Endotracheal tube Admission Weight Weight: 52.6 kg (115 lb 15.4 oz) General Appearance Healthy, alert, active, cooperative, and in no distress Head Normocephalic, without obvious abnormality, atraumatic Eyes b/l vision loss ENT ENT exam normal, no neck nodes or sinus tenderness Neck no adenopathy, no carotid bruit, no JVD, supple, symmetrical, trachea midline, and thyroid not enlarged, symmetric, no tenderness/mass/nodules Lungs clear to auscultation bilaterally Heart: regular rate and rhythm, S1, S2 normal, no murmur, click, rub or gallop Abdomen soft, non-tender; bowel sounds normal; no masses, no organomegaly Extremities extremities normal, atraumatic, no cyanosis or edema Skin Skin color, texture, turgor normal. No rashes or lesions Neurologic: Grossly normal Imaging Echo complete W/O contrast Result Date: 09/24/2023 Left Ventricle: There is mild concentric increased wall thickness/hypertrophy. Systolic function is normal with an ejection fraction of 60-65%. The quantitative EF by 2D [place] biplane is 63%. No segmental wall motion abnormalities. Aortic Valve: The aortic valve is trileaflet. There is mild sclerosis. Mitral Valve: The leaflets are mildly thickened. There is mild posterior annular calcification. There is mild to moderate regurgitation. There is no evidence of mitral valve stenosis. MR orbit with and without contrast Result Date: 09/24/2023 EXAM:MR ORBIT W WO CONT INDICATION: Optic neuritis suspected COMPARISON: CT brain 09/13/2023 TECHNIQUE/PROTOCOL: Multiplanar multisequence MRI of the brain and MRI orbits pre and post contrast. CONTRAST: 10mL ProHance IV. FINDINGS: No acute diffusion signal abnormality. There is no midline shift, mass effect, or acute intracranial hemorrhage. Mild global parenchymal atrophy. No significant T2/FLAIR signal in the periventricular and deep subcortical white matter. The brainstem is unremarkable appearing. There is atrophy of the cerebellar vermis, greater than expected for the degree of global parenchymal atrophy. Contents of the sella turcica are unremarkable appearing. There is no mass effect placed on the optic chiasm. No enhancing intracranial mass/lesion. No evidence of pachymeningeal/leptomeningeal enhancement. Normal appearance of the major arterial structures in the mechoopda of [place]. The paranasal sinuses are clear. Partial bilateral mastoid effusions. Circumscribed 9 mm observation at the level of the right fossa of Rosenmuller. This lesion appears heterogeneous, though mostly hyper intense on T2. There is some intrinsic T1 hyperintensity. The bony orbits are unremarkable appearing. The intraconal and extraconal fat is unremarkable appearing. Extraocular muscles are symmetric. Bilateral lens replacement. There is otherwise normal contour and signal the globes. There is no pathologic enhancement of the optic nerves which are otherwise symmetric in appearance. Optic nerve sheaths are normal. Lacrimal apparatus is unremarkable appearing. Normal enhancement of the cavernous sinus. IMPRESSION: * No acute intracranial abnormality to account for patient's symptoms. * Normal morphology of the orbits and associated structures. * Incidental circumscribed 9 mm observation the level of the right fossa of Rosenmuller. Though potentially representing a benign fossa of Rosenmuller cyst, intrinsic T1 signal does raise suspicion for solid component. Consider direct visualization/sampling if indicated. * Mild global parenchymal atrophy with asymmetrically advanced atrophy of the cerebellar vermis. This is a nonspecific finding. Approved by Resident Sathish Charlton DO on 09/24/2023 4:18 AM IGilbert MD have personally reviewed the image(s) and agree with and/or edited the report Finalized by Gilbert Jewell MD on 09/24/2023 4:25 AM MR brain with and without contrast Result Date: 09/24/2023 MR BRAIN W WO CONT CLINICAL INFORMATION: Ophthalmoplegia, initially monocular vision loss 09/19/2023, now presenting with binocular vision loss. COMPARISON: CT brain 09/13/2023 PROCEDURE: Routine MRI Brain was obtained before and after the uncomplicated intravenous administration of 10 mL ProHance. Multisequence, multiplanar imaging was obtained. FINDINGS: No acute diffusion signal abnormality. There is no midline shift, mass effect, or acute intracranial hemorrhage. Mild global parenchymal atrophy. No significant T2/FLAIR signal in the periventricular and deep subcortical white matter. The brainstem is unremarkable appearing. There is atrophy of the cerebellar vermis, greater than expected for the degree of global parenchymal atrophy. Contents of the sella turcica are unremarkable appearing. There is no mass effect placed on the optic chiasm. No enhancing intracranial mass/lesion. No evidence of pachymeningeal/leptomeningeal enhancement. Normal appearance of the major arterial structures in the mechoopda of [place]ell. The paranasal sinuses are clear. Partial bilateral mastoid effusions. Circumscribed 9 mm observation at the level of the right fossa of Rosenmuller. This lesion appears heterogeneous, though mostly hyper intense on T2. There is some intrinsic T1 hyperintensity. The bony orbits are unremarkable appearing. The intraconal and extraconal fat is unremarkable appearing. Extraocular muscles are symmetric. Bilateral lens replacement. There is otherwise normal contour and signal the globes. There is no pathologic enhancement of the optic nerves which are symmetric in appearance. Optic nerve sheaths are normal. Lacrimal apparatus is unremarkable appearing. Normal enhancement of the cavernous sinus. IMPRESSION: * No acute intracranial abnormality to account for patient's symptoms. * Normal morphology of the orbits and associated structures. * Incidental circumscribed 9 mm observation at the level of the right fossa of Rosenmuller. Though potentially representing a benign fossa of Rosenmuller cyst, intrinsic T1 signal does raise suspicion for a solid component. Consider direct visualization/sampling if indicated. * Mild global parenchymal atrophy with asymmetrically advanced atrophy of the cerebellar vermis. This is a nonspecific finding. Approved by Resident Sathish Charlton DO on 09/24/2023 3:51 AM I, Gilbert Jewell MD have personally reviewed the image(s) and agree with and/or edited the report Finalized by Gilbert Jewell MD on 09/24/2023 4:24 AM Lab Review Recent Results (from the past 48 hour(s)) Homocysteine total Collection Time: 09/23/23 12:56 PM Result Value Ref Range Homocysteine 9.29 3.36 - 20.44 mcmol/L ANCA Collection Time: 09/23/23 12:56 PM Result Value Ref Range ANCA See Below Anti cardiolipin AB IgG IgA IgM Collection Time: 09/23/23 12:56 PM Result Value Ref Range Anticardiolipin IgA <2.0 0 - 19.9 APL Anticardiolipin IgM Ab <1.5 0 - 19.9 MPL Anticardiolipin IgG <1.6 0 - 19.9 GPL Hepatitis panel, acute Collection Time: 09/23/23 12:56 PM Result Value Ref Range Hepatitis B Surface Ag Negative Negative^Negative Hep B Core IgM Ab Negative Negative^Negative Hep A IgM Ab Non-Reactive Non-Reactive^Non-Reactive Anti HCV w/ PCR reflex Non-Reactive Non-Reactive^Non-Reactive Beta-2 glycoprotein antibodies Collection Time: 09/23/23 12:56 PM Result Value Ref Range Beta-2 gp1 IgA <2.0 0.0 - 19.9 u/mL Beta-2 gp1 IgM 4.1 0.0 - 19.9 u/mL Beta-2 gp1 IgG <1.4 0.0 - 19.9 u/mL Haptoglobin Collection Time: 09/23/23 12:56 PM Result Value Ref Range Haptoglobin 613 (H) 32 - 228 mg/dL Immunoelectrophoresis for Therapy Monitoring Collection Time: 09/23/23 12:56 PM Result Value Ref Range IgA 180 68 - 378 mg/dL IgM 285 (H) 45 - 281 mg/dL IgG 992 635 - 1,741 mg/dL Free [place] Lt Chains 2.91 (H) 0.33 - 1.94 mg/dL Free Lambda Lt Chains 2.38 0.57 - 2.63 mg/dL Free kecia/lambda ratio 1.22 0.26 - 1.65 Immune profile inter PENDING LDH Collection Time: 09/23/23 12:56 PM Result Value Ref Range LDH 140 100 - 235 U/L Protein electrophoresis, serum Collection Time: 09/23/23 12:56 PM Result Value Ref Range Total Protein 6.1 6.0 - 8.0 g/dL Albumin 2.5 (L) 3.4 - 5.3 g/dL Alpha 1 0.6 (H) 0.1 - 0.4 g/dL Alpha 2 1.2 (H) 0.4 - 1.1 g/dL Beta 0.8 0.5 - 1.2 g/dL Gamma Globulin 1.0 0.5 - 1.6 g/dL Prot. electrophoresis interp PENDING Direct Clint Collection Time: 09/23/23 2:00 PM Result Value Ref Range Polyspecific HENRRY Negative CBC auto differential Collection Time: 09/24/23 9:11 AM Result Value Ref Range White Blood Cells 18.9 (H) 4.0 - 11.0 X10E9/L RBC count 3.00 (L) 3.80 - 5.20 X10E12/L Hemoglobin 8.3 (L) 11.7 - 15.5 g/dL Hematocrit 25.6 (L) 35 - 47 % MCV 85 80 - 100 fL MCH 27.8 27 - 34 pg MCHC 32.5 32 - 36 g/dL RDW 14.8 11.5 - 15.0 % Platelets 902 (H) 150 - 450 X10E9/L MPV 6.5 (L) 7 - 12 fL % neutrophils 86.2 % % lymphocytes 8.3 % % monocytes 5.0 % % eosinophils 0.0 % % Basophils 0.5 % Neutrophils Absolute (A) 16.3 (H) 1.5 - 6.6 X10E9/L Lymphocytes Absolute 1.6 1.0 - 3.5 X10E9/L Monocytes Absolute 1.0 (H) 0 - 0.9 X10E9/L Eosinophils Absolute 0.0 0.0 - 0.4 X10E9/L Basophils Absolute 0.1 0.0 - 0.2 X10E9/L Basic Metabolic Panel Collection Time: 09/24/23 9:11 AM Result Value Ref Range Sodium 140 134 - 146 mmol/L Potassium, Bld 3.5 3.5 - 5.0 mmol/L Chloride 101 98 - 109 mmol/L CO2 29 22 - 32 mmol/L Anion gap 10 5 - 15 mmol/L BUN 22 5 - 27 mg/dL Creatinine 0.61 0.40 - 1.00 mg/dL Glucose 98 65 - 99 mg/dL Calcium 8.5 8.5 - 10.5 mg/dL eGFR (CKD-EPI)non-race dependent >90 >59 ml/min/1.73sq.m Reticulocytes Collection Time: 09/24/23 9:11 AM Result Value Ref Range Reticulocyte 2.3 (H) 0.4 - 2.2 % Associated attestation - Romero, Jt Milian MD - 09/25/2023 7:47 PM EST I have seen, examined and performed braswell parts of this encounter with my resident and I agree with the assessment and plan. Images from the original note were not included. Vascular History and Physical Examination/Consultation Note Reason for Consultation Bilateral temporal artery biopsy, concern for giant cell arteritis History and Present Illness Jose David is a 78 y.o. White or female who presents to the emergency department from her enterprise software engineer's office. She was being evaluated with an enterprise software engineer for possible giant cell arthritis. She said she experienced vision loss in the left eye on Friday and experienced vision loss in the right eye on Friday. She said since being admitted and started on steroids she has been getting intermittent vision in both eyes that last a few seconds. She denies jaw claudication, but endorsed having jaw tiredness when chewing food because she got her tooth extracted. Denies any numbness and tingling, lateralization of weakness and headaches. WBC 12.1, platelet 924, haptoglobin 613, sed rate 114, C-Reactive protein 13.3. 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 No pertinent past medical history. Past Surgical History Past Surgical History: Procedure Laterality Date APPENDECTOMY TONSILLECTOMY TUBAL LIGATION Allergies Allergies Allergen Reactions Penicillin Confusion and Fever Current Medications cyanocobalamin, 1,000 mcg, oral, Daily enoxaparin (LOVENOX) injection, 40 mg, subcutaneous, Daily methylPREDNISolone sodium succinate, 1,000 mg, intravenous, Q24H SIXTO sodium chloride, 3 mL, intravenous, Q12H SIXTO Current Infusions dextrose 5 % in water, 100 mL/hr sodium chloride 0.9 %, 20 mL/hr, Last Rate: 20 mL/hr (09/24/23 1008) Home Medications Medications Prior to Admission Medication Sig Dispense Refill Last Dose acetaminophen (TYLENOL EXTRA STRENGTH) 500 mg tablet Take 1 tablet (500 mg total) by mouth every 6 (six) hours as needed for pain. Other - as prescribed Social History Social History Socioeconomic History Marital status: Spouse name: Not on file Number of children: Not on file Years of education: Not on file Highest education level: Not on file Occupational History Not on file Tobacco Use Smoking status: Never Smokeless tobacco: Never Substance and Sexual Activity Alcohol use: Never Drug use: Never Sexual activity: Defer Other Topics Concern Not on file Social History Narrative Not on file Social Determinants of Health Financial Resource Strain: Not on file Food Insecurity: Not on file Transportation Needs: Not on file Physical Activity: Not on file Stress: Not on file Social Connections: Not on file Interpersonal Safety: Not on file Housing Instability: Not on file Primary Care Physician JOHN PATEL, DO Family Histroy History reviewed. No pertinent family history. Review Of Systems Review of Systems Constitutional: Negative for appetite change, diaphoresis and fatigue. HENT: Negative for drooling, facial swelling and trouble swallowing. Eyes: Positive for visual disturbance. Negative for discharge and redness. Intermittent loss of vision bilateral eyes Respiratory: Negative for chest tightness, shortness of breath and wheezing. Cardiovascular: Negative for chest pain and leg swelling. Gastrointestinal: Negative for abdominal pain, nausea and vomiting. Genitourinary: Negative for difficulty urinating. Musculoskeletal: Negative for neck pain and neck stiffness. Skin: Negative for color change. Neurological: Negative for dizziness, seizures, speech difficulty, weakness, light-headedness, numbness and headaches. Psychiatric/Behavioral: Negative for confusion and hallucinations. The patient is not nervous/anxious. Objective Vital signs: Vitals: 09/23/23 2000 09/24/23 0000 09/24/23 0440 09/24/23 0752 BP: 135/81 141/80 132/72 123/66 Pulse: 100 92 78 103 Resp: 18 18 18 Temp: 36.6 C (97.9 F) 36.6 C (97.9 F) 36.6 C (97.9 F) 36.8 C (98.2 F) TempSrc: Oral Oral Oral Oral SpO2: 96% 96% 95% 93% Weight: Height: Temperature Range Last 24 Hours : Temp: 36.8 C (98.2 F) Temp Av.7 C (98 F) Min: 36.6 C (97.9 F) Max: 36.8 C (98.2 F) Admit Weight: 52.6 kg (115 lb 15.4 oz) Body mass index is 21.21 kg/m . Last Weights: Wt Readings from Last 3 Encounters: 09/23/23 52.6 kg (115 lb 15.4 oz) I/O's: Intake/Output Summary (Last 24 hours) at 09/24/2023 1042 Last data filed at 09/24/2023 0900 Gross per 24 hour Intake 380 ml Output -- Net 380 ml Physical Exam Physical Exam Constitutional: General: She is not in acute distress. Appearance: Normal appearance. She is not ill-appearing, toxic-appearing or diaphoretic. HENT: Head: Normocephalic and atraumatic. Eyes: General: Right eye: Discharge present. Left eye: Discharge present. Comments: Intermittent vision loss bilaterally Neck: Vascular: No carotid bruit. Cardiovascular: Rate and Rhythm: Normal rate. Pulses: Normal pulses. Heart sounds: Normal heart sounds. Pulmonary: Effort: Pulmonary effort is normal. No respiratory distress. Breath sounds: Normal breath sounds. No wheezing or rales. Abdominal: General: Bowel sounds are normal. There is no distension. Tenderness: There is no guarding. Musculoskeletal: General: No swelling. Cervical back: Normal range of motion and neck supple. No tenderness. Lymphadenopathy: Cervical: No cervical adenopathy. Neurological: General: No focal deficit present. Mental Status: She is alert and oriented to person, place, and time. Psychiatric: Mood and Affect: Mood normal. Thought Content: Thought content normal. Imaging No results found. No results found. Assessment/Plan 1. Amaurosis fugax like symptom -CTA carotid was done on 09/22/23 images is in the computer but this no reading. Dr. Kristel Reid reviewed the CT images and stated it is okay to proceed with bilateral temporal artery biopsy scheduled for 09/25/2023 at 7:30 a.m. No need to order a carotid duplex at this time. -neuro examination was unremarkable except for intermittent vision loss -steroid management per primary team, Neurology also on board. Thank you very much for allowing us to participate in patient's care. Your referrals are greatly appreciated, please do not hesitate to contact our service with any questions or concerns regarding management. ALANNA Guzman [facility] [place] Office/After hours: [phone] ALANNA Guzman 09/24/23 1521 Associated Order(s): IP CONSULT TO SPIRITUAL CARE Summary: Spiritual Care Consult for Advance Directive Assistance Spiritual Care Consult for Advance Directive Assistance Advance Directive: Manager Target provided patient with education on the need for advance directives and a copy of the [place] Advance Directive packet. Manager [employer] assisted patient in completing the advance directives. Patient completed and signed a healthcare power of consumer attorney. Patient was given the original and a copy. One copy placed in patient's chart. A plastics spreading machine operator is available 17/03 to offer spiritual and emotional support and may be reached through the [facility] rolls mill operator at [phone]. Associated Order(s): IP CONSULT TO OPHTHALMOLOGY Date: Reason for consult: I have been asked to evaluate the eyes of this 78-year-old lady who noticed sudden onset of foggy in the left eye 4 days ago this rapidly progressed to complete loss of vision in the left eye.. She saw an device sales consultant who indicated to her that she had a swollen optic nerve head in the left eye and referred her for further evaluation. Her appointment was 2 days later. Two days ago she noticed a sudden loss of vision in the right eye. At this time she claims not to see anything out of either eye. No eye pain on eye movements. She denies any eye pain. No headache. No light flashes or floaters. She denies any bitemporal aches or headaches. She denies any jaw claudication. Her appetite has been good and she denies feeling any general malaise. She gives no history of myalgia or arthritis. Past Ocular History: The patient has Has history of Cataracts Cataract surgery with intra ocular lens implant bilateral. H&P Reviewed: Pt is seen at bedside. Patient communicates appropriately & oriented to self space & time. Examination: Vision: OD 20/no light perception , OS 20/ no light perception Physical Exam External: No pain or discomfort over the distribution of the temporal arteries on either side. Satisfactory pulsations in both temporal arteries. : Normal Lids: Right: Normal position. No Ptosis. Left: Normal No ptosis Extra Ocular Movements: Right: Full No restrictions. No strabismus No nystagmus Left: Full No restrictions No strabismus. No nystagmus. Orbits: OD: Intact orbital rim.: OS: Intact Orbital rim: Right: Cr N 3-7 Normal Left Cr N 3-7 Normal Visual Ivey: OD Confrontation: 360 absolute visual field deficit. OS: Confrontation: 360 complete visual field deficit Anterior Segment Conjunctiva: : OD: Normal OS: Normal Sclera: : OD: Clear OS: Clear: Cornea: OD Clear OS: Clear : Anterior Chamber: : OD:Deep & Clear OS: Deep & Clear Lens: : OD: PCIOL with clear visual axis OS: PCIOL with clear visual axis: Pupils: OD Size 6mm, Round, Reacts 0+, No affarent defect. OS Size 7mm, Round, Reacts 0+, No affarent defect. Intra Ocular Pressure: OD: mmHg - Tonopen: OD: Normotensive: OS MmHg - Tonopen OS: Normotensive Vitreous: Clear OU No Floaters OU No Hemorrhage OU Fundi: Undilated OD; 3+ swollen, 3+ pallor, 3+ blurriness of disc margins. OS: 3+ swollen, 3+ pallor 3+ blurred elevated disc margin Cup/Disc Ratio . Vessels: OD: Attenuated retinal arteries with box scar blood flow. Mildly swollen pale nerve fiber layer. OS: Normal size and distribution of retinal vessels. Macula: OD: Visible osman-red spot. OS: Appears normal Retina: Fully attached in all quadrants.OU Retina Periphery: No holes or tears or retina detachment. OU 1. 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 See fundus pictures in media. The sequential profound visual loss in both eyes with elevated ESR and CRP is absolutely suggestive of giant cell arteritis. Aggressive steroid therapy is advocated. Temporal artery biopsy is indicated. Thanks Montana Bartlett MD, FACS. Associated Order(s): IP CONSULT TO HEMATOLOGY HEMATOLOGY ONCOLOGY CONSULT NOTE Reason for consult: Thrombocytosis History of present illness: The patient is a 78 y.o. female with no significant past medical history presented to her eye doctor on 09/19/2023 due to blurry vision in left eye, she was told her optic disc was swollen and the patient was given a referral to enterprise software engineer. Over the weekend patients vision in left eye continued to worsen and eventually lost all vision in left eye. Patient was seen by enterprise software engineer 09/22/2023 and time she would decreased vision also in her right eye. It was recommended that she go straight to the emergency department, for concern for giant cell arteritis. Initially she went to [facility] where they gave her Solu-Medrol 250 mg IV 1 dose and then transferred her to [facility]. When she arrived at [facility] she had complete vision loss in both eyes. Neurology has seen patient she was noted to have elevated platelet count 924,000, elevation of ESR 130, and CRP 13.3. Neurology has ordered orbit MRI, and brain MRI which are pending. Neurology gave differential diagnosis of bilateral transverse myelitis versus ischemic retinopathy/GCA. Patient was also found to be anemic, iron 25, TIBC 179, iron saturation 14%, ferritin 478. Folate and B12 are pending. Peripheral smear and JAK2 mutation are also pending. At the time of exam pt is laying in bed with no family at bedside. States she was doing well until Friday when started having L vision loss. She denies any pain, NAGY, SOB, fever or chills. She denies any swelling in her legs are pain. 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 She takes no regular medication, she has had appendectomy, tubal ligation, procedure on her neck due to pain. Oncology History No history exists. Review of Systems Constitutional: Negative for chills, diaphoresis, fatigue and fever. Eyes: Positive for visual disturbance (complete vision loss bilaterally). Negative for pain, discharge and redness. Respiratory: Negative for shortness of breath. Cardiovascular: Negative for leg swelling. Gastrointestinal: Negative for blood in stool. Neurological: Negative for dizziness, facial asymmetry, weakness and headaches. Hematological: Does not bruise/bleed easily. Psychiatric/Behavioral: Negative for confusion. Objective Physical Exam: Vitals: BP 148/74 Pulse 105 Temp 36.6 C (97.9 F) (Oral) Resp 20 Ht 157.5 cm (5' 2 ) Wt 52.6 kg (115 lb 15.4 oz) SpO2 94% BMI 21.21 kg/m Body mass index is 21.21 kg/m . General: Well appearing, in no acute distress. Eyes: total vision loss bilaterally ENT: Pharyngeal mucosa was moist without exudate, inflammation or ulcerations. Tongue was midline and appeared normal. Gums were unremarkable. Lymph nodes: No palpable adenopathy. Neck: Supple. There were no masses, tenderness. Trachea was midline. Respiratory: Respirations were non-labored. Lungs were clear to auscultation. Cardiac: Regular rate and rhythm, S1 and S2 sounds were normal. There were no rubs or gallops. Abdomen: Soft, non-tender, Nondistended. Bowel sounds audible in all four quadrants. There were no palpable masses. The liver and spleen were not enlarged. Extremities: There was no clubbing, Cyanosis, edema. Skin: There was no obvious rashes, bruising or ecchymosis. Back exam: No palpable tenderness was appreciated. Neurologic: There was no unilateral weakness. Mood and affect: Normal. Lines, Drains, Airways: peripheral IV ECO- Symptomatic; fully ambulatory History reviewed. No pertinent past medical history. Past Surgical History: Procedure Laterality Date APPENDECTOMY TONSILLECTOMY TUBAL LIGATION History reviewed. No pertinent family history. Social History Socioeconomic History Marital status: Spouse name: Not on file Number of children: Not on file Years of education: Not on file Highest education level: Not on file Occupational History Not on file Tobacco Use Smoking status: Never Smokeless tobacco: Never Substance and Sexual Activity Alcohol use: Never Drug use: Never Sexual activity: Defer Other Topics Concern Not on file Social History Narrative Not on file Social Determinants of Health Financial Resource Strain: Not on file Food Insecurity: Not on file Transportation Needs: Not on file Physical Activity: Not on file Stress: Not on file Social Connections: Not on file Interpersonal Safety: Not on file Housing Instability: Not on file Allergies Allergen Reactions Penicillin Confusion and Fever Inpatient scheduled medication: sodium chloride, 3 mL, intravenous, Q12H SIXTO Recent Labs Recent Results (from the past 72 hour(s)) Comprehensive metabolic panel Collection Time: 09/23/23 6:28 AM Result Value Ref Range Sodium 139 134 - 146 mmol/L Potassium, Bld 3.7 3.5 - 5.0 mmol/L Chloride 101 98 - 109 mmol/L CO2 25 22 - 32 mmol/L Anion gap 13 5 - 15 mmol/L BUN 14 5 - 27 mg/dL Creatinine 0.49 0.40 - 1.00 mg/dL Glucose 141 (H) 65 - 99 mg/dL Calcium 8.6 8.5 - 10.5 mg/dL Total Protein 6.9 6.0 - 8.0 g/dL Albumin 3.0 (L) 3.2 - 5.3 g/dL Alkaline Phosphatase 227 (H) 39 - 130 U/L AST 12 0 - 41 U/L ALT 11 0 - 31 U/L Total bilirubin 0.6 0.3 - 1.2 mg/dL eGFR (CKD-EPI)non-race dependent >90 >59 ml/min/1.73sq.m CBC auto differential Collection Time: 09/23/23 6:28 AM Result Value Ref Range White Blood Cells 11.1 (H) 4.0 - 11.0 X10E9/L RBC count 3.07 (L) 3.80 - 5.20 X10E12/L Hemoglobin 8.6 (L) 11.7 - 15.5 g/dL Hematocrit 26.2 (L) 35 - 47 % MCV 85 80 - 100 fL MCH 28.1 27 - 34 pg MCHC 32.9 32 - 36 g/dL RDW 14.6 11.5 - 15.0 % Platelets 917 (H) 150 - 450 X10E9/L MPV 6.3 (L) 7 - 12 fL % neutrophils 93.3 % % lymphocytes 3.6 % % monocytes 1.0 % % eosinophils 0.0 % % Basophils 2.1 % Neutrophils Absolute (A) 10.4 (H) 1.5 - 6.6 X10E9/L Lymphocytes Absolute 0.4 (L) 1.0 - 3.5 X10E9/L Monocytes Absolute 0.1 0 - 0.9 X10E9/L Eosinophils Absolute 0.0 0.0 - 0.4 X10E9/L Basophils Absolute 0.2 0.0 - 0.2 X10E9/L C-reactive protein Collection Time: 09/23/23 6:28 AM Result Value Ref Range CRP 13.3 (H) 0.000 - 0.744 mg/dL Iron and TIBC Collection Time: 09/23/23 6:28 AM Result Value Ref Range Iron 25 (L) 50 - 170 ug/dL Tibc-calc only do not order 179 (L) 250 - 425 ug/dL Iron Saturation 14 (L) 15 - 50 % SATURATION Ferritin Collection Time: 09/23/23 6:28 AM Result Value Ref Range Ferritin 478 (H) 11 - 307 ng/mL Folate Collection Time: 09/23/23 6:28 AM Result Value Ref Range Folate 13.0 >5.8 ng/mL CBC auto differential Collection Time: 09/23/23 8:18 AM Result Value Ref Range White Blood Cells 12.1 (H) 4.0 - 11.0 X10E9/L RBC count 3.27 (L) 3.80 - 5.20 X10E12/L Hemoglobin 9.1 (L) 11.7 - 15.5 g/dL Hematocrit 27.8 (L) 35 - 47 % MCV 85 80 - 100 fL MCH 27.8 27 - 34 pg MCHC 32.7 32 - 36 g/dL RDW 14.4 11.5 - 15.0 % Platelets 924 (H) 150 - 450 X10E9/L MPV 6.2 (L) 7 - 12 fL % neutrophils 95.5 % % lymphocytes 3.3 % % monocytes 1.0 % % eosinophils 0.0 % % Basophils 0.2 % Neutrophils Absolute (A) 11.5 (H) 1.5 - 6.6 X10E9/L Lymphocytes Absolute 0.4 (L) 1.0 - 3.5 X10E9/L Monocytes Absolute 0.1 0 - 0.9 X10E9/L Eosinophils Absolute 0.0 0.0 - 0.4 X10E9/L Basophils Absolute 0.0 0.0 - 0.2 X10E9/L Recent Imaging: No results found. Diagnosis Problem list: Patient Active Problem List Diagnosis Vision blurred Stroke-like symptoms Assessment/Plan Impression: Thrombocytosis - plts- 924, last documented plt count was normal in 2019 - ESR- 130, CRP- 13.3 - Ferritin- 478 - Jak2-pending - peripheral smear- pending 2. Normocytic Normochromic Anemia - Hgb- 9.1 last documented Hgb normal in 2019 - Iron- 25, TIBC- 179, sat- 14%, ferritin- 478 - B-12 and folate Pending - peripheral smear pending 3. 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 Plan: - Will complete anemia and thrombocytosis workup with the following labs: APS, hepatitis panel, LDH/hapto/retic, HENRRY, flow cytometry, SPEP, BCR/ABL and MMA. - If BCR/ABL or TONIA 2 come back positive, MPN, would recommend bone marrow biopsy - agree with checking SILVIA and rheumatoid factor. - we will defer use of aspirin to primary team at this time, if evidence of MPN would recommend starting aspirin. - Will await MRI brain and orbit MRI - appreciate Neurology and ophthalmology recommendations - Ophthalmology has recommended high dose steroids and temporal artery bx. Transfusion Parameters: Hgb < 7 and Plts < 10,000, unless active bleeding transfuse Plts < 20,000 VTE Prophylaxis: lovenox Code Status: Full Code Further medical management of comorbid conditions per primary team and consulting services, appreciate assistance The patient was seen and examined and all plans and orders were discussed with the attending physician on service today, Dr. Pizaon Thank you for the consultation. Caitie Wilder PA-C [facility] [address] [place] [address] September 23, 2023, 10:20 AM Please note that portions of this note were generated using voice recognition [employer] dictation software. Although every effort was made to ensure the accuracy of this automated quantitative researcher, some errors in quantitative researcher may have occurred. I have personally performed a face to face evaluation of this patient independently of Ms. Wilder. I have reviewed the assessment findings and plan as documented in the note and made all necessary revisions. I have reviewed lab and imaging data independently. Management plan has been discussed with Ms. Wilder. My additional findings and orders are as follows: Vision loss, L>R with significantly elevated CRP and ESR Started on solu medrol for treatment of giant cell arteritis Blood work sjowed new onset anemia, thrombocytosis Work up ongoing for nutritional deficiency versus hemolysis versus infection vs. Inflammation/autoimmune condition vs. Bone marrow etiology including lymphoma/leukemia, MM, MPN If persistent neutrophilia and thrombocytosis and JAK2 v617 and BCR-abl negative, will check additional mutation for MPN evaluation Agree with MRI Will defer to neurology if need to start aspirin Joni PIZANO M.D. [facility] Day time contact: After hours answering service: [phone] [place] [address] Associated Order(s): IP CONSULT TO NEUROLOGY Images from the original note were not included. [facility] Neurology General Neurology Consultation Note Consult Neurology Service: [phone] Primary Team: SAMUEL Chief Complaint and Reason for Consultation: Vision loss History: Jose David is a 78 y.o. year old female for whom Neurology was consulted for chief complaint of vision loss. History was taken from the patient and chart review. Patient has no significant past medical history, she was doing well till Tuesday 09/19 when she started noticing blurry vision in her left eye, according to the patient she was seen by an eye doctor on that day, the patient was told that her optic disc is swollen, and the patient was given referral to eye center in [facility], on Friday and Friday, vision on the left eye worsened significantly and she lost her vision on the left eye. On Friday 09/22, patient came to [place] to see an eye doctor, who asked her to go to the ED. patient initially went to [facility], given Solu-Medrol 250 mg IV once, transferred to [facility] for further workup and ophthalmology evaluation. According to the patient, her right eye vision worsened significantly on Friday, and she lost her vision on both eyes. Patient had no past medical history, she has not taking any scheduled medications, patient lives with her daughter, she is driving and working. Walking with no assistive devices. Upon initial assessment in [facility], patient had complete vision loss on both eyes, she described seeing bright lights intermittently, patient said that few hours before she was able to see her cell phone. Patient denied any headache, painful eye movements, numbness, tingling or any other new symptoms. Past Medical History/Surgical History: Active Ambulatory Problems Diagnosis Date Noted No Active Ambulatory Problems Resolved Ambulatory Problems Diagnosis Date Noted No Resolved Ambulatory Problems No Additional Past Medical History Family History: No family history on file. Social History: Social History Socioeconomic History Marital status: Spouse name: Not on file Number of children: Not on file Years of education: Not on file Highest education level: Not on file Occupational History Not on file Tobacco Use Smoking status: Not on file Smokeless tobacco: Not on file Substance and Sexual Activity Alcohol use: Not on file Drug use: Not on file Sexual activity: Not on file Other Topics Concern Not on file Social History Narrative Not on file Social Determinants of Health Financial Resource Strain: Not on file Food Insecurity: Not on file Transportation Needs: Not on file Physical Activity: Not on file Stress: Not on file Social Connections: Not on file Interpersonal Safety: Not on file Housing Instability: Not on file Medications: @MEDADMIN@ Allergies: Not on File Complete Review of Systems: Constitutional: No Weight Change, No Fever, No Chills, No Night Sweats, No Fatigue/Malaise Eyes: Bilateral vision loss Cardiovascular: No Chest Pain, No SOB, No PND, No Orthopnea, No Palpitations Respiratory: No Cough, No Sputum, No Wheezing, No Dyspnea Gastrointestinal: No Nausea/Vomiting, No Diarrhea, No Constipation, No Dysphagia, No Hematochezia/Melena Genitourinary: No Dysuria, No Urinary Frequency, No Hematuria, No Incontinence, No Urgency, No Urinary Flow Changes Musculoskeletal: No Arthralgias, No Myalgias, No Joint Swelling/Joint Stiffness, No Back Pain, No Neck Pain Neuro: No Weakness, No Numbness, No Paresthesias, No Loss of Consciousness, No Syncope, No Dizziness, No Headache, No Recent Falls Psych: No Anxiety/Panic, No Depression, No Insomnia, No Personality Changes, No Delusions, No Rumination, No SI/HI, No Memory Changes Heme/Lymph: No Bruising, No Bleeding Physical Exam Vital Signs: Vitals: 09/23/23 0037 BP: 138/86 Pulse: 104 Resp: 17 Temp: 36.6 C (97.9 F) SpO2: 94% General: Normotensive, in no acute distress. Cardiac Examination: Heart: RRR, no murmurs, no rubs, no gallops. Carotids: No bruit Peripheral Vascular System: Peripheral pulses intact Neurological Examination: Higher Mental Function: Orientated to time, place, person Attention span and concentration intact Recent and Remote Memory Intact Language intact Fund of knowledge appropriate Ophthalmological Examination: Clear conjunctiva, no cataracts. Optic disc is swollen and pale on both sides L<R Cranial Nerve Examination: II: Not tracking, no response to visual threat, vision impaired III, IV, & : EOM intact, no ptosis, no nystagmus seen. Pupils are dilated, sluggishly reactive on the left, brisk reactive on the right V: Facial sensation is intact. VII: no facial asymmetry, facial movement intact. VIII: hearing is normal. IX-X: Palate elevates in the midline. XI: Normal trapezius strength and/or movement. XII: Tongue movement is normal, position is midline and no fasciculations are observed. Tongue strength intact. Motor: Power -- No focal motor weakness noted in BL upper or lower extremities. Bulk and muscle tone are intact in BL upper and lower extremities. No rigidity or spasticity. No atrophy or abnormal movements noted. No dystonia, or motor tics. No bradykinesia, postural or kinetic tremor noted. No fasciculation or myotonia noted. No abnormal movements noticed. No evidence of pseudo bulbar paralysis; no sialorrhea, difficulties swallowing. No tremors were noted Deep Tendon Reflexes: Right, Left: Biceps 2, 2 Brachioradialis 2, 2 Patellae 2, 2 Plantar response upgoing, Ronn negative Sensory examination: Intact sensation to light touch equal and symmetrical bilateral upper and lower Cerebellar: No dysmetria Gait and station: Deferred Pertinent Labs: Reportedly ESR and CRP were elevated at [facility] Imaging: CTH, head and neck CTA done at [facility], reportedly unremarkable Other Testing: None Assessment: Jose David is 78 years old female patient with no significant PMH, currently being evaluated for progressive vision loss, started on the left eye, then progressed to the right eye. Visual acuity is very impaired currently, physical exam concerning for bilateral optic disc swelling and pallor Impression: Bilateral rapid progressive vision loss, concern for bilateral transverse myelitis versus ischemic retinopathy/GCA Plan: Will get ESR and CRP. Orbit MRI with and without contrast. Brain MRI with and without contrast Patient given Solu-Medrol 1 g IV Agree with ophthalmologic evaluation. Will consider spinal tap. Will continue to follow Carlitos Caraballo MD PGY-3, Neurology Resident [facility] Staffed with: (Dr. Byrne) This patient is being followed by the Neurology Resident service. Contact attending directly during these hours: Friday to 7:30-8:30 A.M. to Friday 12-1:00 p.m. Primary Neurology service: [phone] Consult neurology service: [phone] Resident Stroke Service: [phone] If the patient belongs to the Stroke TRAM service please contact the Stroke TRAM directly. Associated attestation - Sandy Pizano MD - 09/23/2023 3:06 PM EST Attending Attestation: I saw the patient. I performed the critical/braswell portions of the service. I was directly involved in the management and treatment plan of the patient. I reviewed the resident's note. Additional Notes/Findings: 78 y.o. 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; should continue steroid treat; also recommend bilateral temporal artery biopsy, brain MRI with chuckie and thin cuts through orbits, MAUREEN, comprehensive lab tests for hypercoagulation and systemic inflammatory/autoimmue disease; will follow and update Sandy Pizano MD, PhD documented in this encounter [facility] 09-25-2023 Procedure note Operative Note Date: September 25, 2023 Pre-op Diagnosis: Headache and visual deficit Post-op Diagnosis: Same Procedure(s) Performed: Bilateral temporal artery biopsy Surgeon: Kristel Reid MD Assistants: Juaquin Del Cid MD (PGY 2) Anesthesia: General EBL: 25 ml Total IV Fluids: 700 ml LR Indications for Procedure: This is a 78 year old female who presented to the hospital for possible giant cell arteritis. The patient noted sudden loss of vision in the left on eye last week and loss of vision in the right right several days ago. She was evaluated by her enterprise software engineer who felt that vision loss was secondary to temporal arteritis and the patient was sent to the ER for further evaluation. The patient was started on steroids and visual deficit did start to improve. The patient's ESR was elevated at 114 and CRP was 13.3. The patient was recommended to undergo bilateral temporal artery biopsy. The procedure was discussed with the patient and all risks, benefits, and alternatives were reviewed. The patient agreed to proceed. Consent was signed by the patient prior to the procedure. Description of Procedure: The patient was brought to the operating room and placed supine on the table. General anesthesia was induced without difficulty. The hair around the temporal area and the ears were clipped and the temporal area was prepped and draped in the usual sterile fashion. A time-out was performed verifying the correct patient, site, and procedure. Pre-operative antibiotics were administered within one hour of start time. We began on the left side. A longitudinal incision was made in the hairline just above the left ear using a scalpel. Dissection was carried through subcutaneous tissue using electrocautery. We identified the temporal artery and dissected a suitable portion of the vessel using the Bovie. Note that the vessel was very friable and inflamed at it was difficult to dissect the vessel away from the surrounding tissue. We tied the artery proximal and distal using 4 0 silk tie and divided the artery. The wound was carefully inspected and hemostasis was obtained using electrocautery. The incision was closed using interrupted 3-0 Vicryl suture placed in the deep dermis followed by a 4-0 subcuticular stitch. Dermabond was applied over the incision. The right temporal artery was obtained in a similar fashion and again the vessel was significantly inflamed and friable and actually was removed in several pieces because the vessel fell apart very easily. The tissue was also very inflamed and dissection was very difficult. The patient tolerated the procedure well and was transferred to the recovery area in stable condition. Specimens: ID Type Source Tests Collected by Time 1 : LEFT TEMPORAL ARTERY BIOPSY Tissue Artery SURGICAL PATHOLOGY Kristel Reid MD 09/25/2023807 2 : RIGHT TEMPORAL ARTERY BIOPSY Tissue Artery SURGICAL PATHOLOGY Kristel Reid MD 09/25/2023 0808 Implants: None Complications: None Disposition: PACU - hemodynamically stable. Condition: stable Kristel Reid MD [facility] 09-25-2023 Attending History and physical note HISTORY AND PHYSICAL INTERVAL NOTE: Jose Pierson Maybell 1945 [id number] H&P reviewed. The patient was examined and there are no changes to the H&P. Kristel Reid MD Source Note - Faisal Rascon IMPORT/EXPORT SPECIALIST-PLATE GLASS INSTALLER HELPER - 09/24/2023 10:37 AM EST Images from the original note were not included. Vascular History and Physical Examination/Consultation Note Reason for Consultation Bilateral temporal artery biopsy, concern for giant cell arteritis History and Present Illness Jose David is a 78 y.o. White or female who presents to the emergency department from her enterprise software engineer's office. She was being evaluated with an enterprise software engineer for possible giant cell arthritis. She said she experienced vision loss in the left eye on Friday and experienced vision loss in the right eye on Friday. She said since being admitted and started on steroids she has been getting intermittent vision in both eyes that last a few seconds. She denies jaw claudication, but endorsed having jaw tiredness when chewing food because she got her tooth extracted. Denies any numbness and tingling, lateralization of weakness and headaches. WBC 12.1, platelet 924, haptoglobin 613, sed rate 114, C-Reactive protein 13.3. 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 No pertinent past medical history. Past Surgical History Past Surgical History: Procedure Laterality Date APPENDECTOMY TONSILLECTOMY TUBAL LIGATION Allergies Allergies Allergen Reactions Penicillin Confusion and Fever Current Medications cyanocobalamin, 1,000 mcg, oral, Daily enoxaparin (LOVENOX) injection, 40 mg, subcutaneous, Daily methylPREDNISolone sodium succinate, 1,000 mg, intravenous, Q24H SIXTO sodium chloride, 3 mL, intravenous, Q12H SIXTO Current Infusions dextrose 5 % in water, 100 mL/hr sodium chloride 0.9 %, 20 mL/hr, Last Rate: 20 mL/hr (09/24/23 1008) Home Medications Medications Prior to Admission Medication Sig Dispense Refill Last Dose acetaminophen (TYLENOL EXTRA STRENGTH) 500 mg tablet Take 1 tablet (500 mg total) by mouth every 6 (six) hours as needed for pain. Other - as prescribed Social History Social History Socioeconomic History Marital status: Spouse name: Not on file Number of children: Not on file Years of education: Not on file Highest education level: Not on file Occupational History Not on file Tobacco Use Smoking status: Never Smokeless tobacco: Never Substance and Sexual Activity Alcohol use: Never Drug use: Never Sexual activity: Defer Other Topics Concern Not on file Social History Narrative Not on file Social Determinants of Health Financial Resource Strain: Not on file Food Insecurity: Not on file Transportation Needs: Not on file Physical Activity: Not on file Stress: Not on file Social Connections: Not on file Interpersonal Safety: Not on file Housing Instability: Not on file Primary Care Physician JOHN PATEL, Family Histroy History reviewed. No pertinent family history. Review Of Systems Review of Systems Constitutional: Negative for appetite change, diaphoresis and fatigue. HENT: Negative for drooling, facial swelling and trouble swallowing. Eyes: Positive for visual disturbance. Negative for discharge and redness. Intermittent loss of vision bilateral eyes Respiratory: Negative for chest tightness, shortness of breath and wheezing. Cardiovascular: Negative for chest pain and leg swelling. Gastrointestinal: Negative for abdominal pain, nausea and vomiting. Genitourinary: Negative for difficulty urinating. Musculoskeletal: Negative for neck pain and neck stiffness. Skin: Negative for color change. Neurological: Negative for dizziness, seizures, speech difficulty, weakness, light-headedness, numbness and headaches. Psychiatric/Behavioral: Negative for confusion and hallucinations. The patient is not nervous/anxious. Objective Vital signs: Vitals: 09/23/23 2000 09/24/23 0000 09/24/23 0440 09/24/23 0752 BP: 135/81 141/80 132/72 123/66 Pulse: 100 92 78 103 Resp: 18 18 18 Temp: 36.6 C (97.9 F) 36.6 C (97.9 F) 36.6 C (97.9 F) 36.8 C (98.2 F) TempSrc: Oral Oral Oral Oral SpO2: 96% 96% 95% 93% Weight: Height: Temperature Range Last 24 Hours : Temp: 36.8 C (98.2 F) Temp Av.7 C (98 F) Min: 36.6 C (97.9 F) Max: 36.8 C (98.2 F) Admit Weight: 52.6 kg (115 lb 15.4 oz) Body mass index is 21.21 kg/m . Last Weights: Wt Readings from Last 3 Encounters: 09/23/23 52.6 kg (115 lb 15.4 oz) I/O's: Intake/Output Summary (Last 24 hours) at 09/24/2023 1042 Last data filed at 09/24/2023 0900 Gross per 24 hour Intake 380 ml Output -- Net 380 ml Physical Exam Physical Exam Constitutional: General: She is not in acute distress. Appearance: Normal appearance. She is not ill-appearing, toxic-appearing or diaphoretic. HENT: Head: Normocephalic and atraumatic. Eyes: General: Right eye: Discharge present. Left eye: Discharge present. Comments: Intermittent vision loss bilaterally Neck: Vascular: No carotid bruit. Cardiovascular: Rate and Rhythm: Normal rate. Pulses: Normal pulses. Heart sounds: Normal heart sounds. Pulmonary: Effort: Pulmonary effort is normal. No respiratory distress. Breath sounds: Normal breath sounds. No wheezing or rales. Abdominal: General: Bowel sounds are normal. There is no distension. Tenderness: There is no guarding. Musculoskeletal: General: No swelling. Cervical back: Normal range of motion and neck supple. No tenderness. Lymphadenopathy: Cervical: No cervical adenopathy. Neurological: General: No focal deficit present. Mental Status: She is alert and oriented to person, place, and time. Psychiatric: Mood and Affect: Mood normal. Thought Content: Thought content normal. Imaging No results found. No results found. Assessment/Plan 1. Amaurosis fugax like symptom -CTA carotid was done on 09/22/23 images is in the computer but this no reading. Dr. Kristel Reid reviewed the CT images and stated it is okay to proceed with bilateral temporal artery biopsy scheduled for 09/25/2023 at 7:30 a.m. No need to order a carotid duplex at this time. -neuro examination was unremarkable except for intermittent vision loss -steroid management per primary team, Neurology also on board. Thank you very much for allowing us to participate in patient's care. Your referrals are greatly appreciated, please do not hesitate to contact our service with any questions or concerns regarding management. Faisal Rascon APRN-RIVKA [facility] [place] Office/After hours: [phone] ALANNA Guzman 09/24/23 1521 ALANNA Guzman 09/25/23 0730 [facility] 09-25-2023 History and physical note HISTORY AND PHYSICAL INTERVAL NOTE: Jose David 1945 [id number] H&P reviewed. The patient was examined and there are no changes to the H&P. Kristel Reid MD Source Note - ALANNA Guzman - 09/24/2023 10:37 AM EST Images from the original note were not included. Vascular History and Physical Examination/Consultation Note Reason for Consultation Bilateral temporal artery biopsy, concern for giant cell arteritis History and Present Illness Jose David is a 78 y.o. White or female who presents to the emergency department from her enterprise software engineer's office. She was being evaluated with an enterprise software engineer for possible giant cell arthritis. She said she experienced vision loss in the left eye on Friday and experienced vision loss in the right eye on Friday. She said since being admitted and started on steroids she has been getting intermittent vision in both eyes that last a few seconds. She denies jaw claudication, but endorsed having jaw tiredness when chewing food because she got her tooth extracted. Denies any numbness and tingling, lateralization of weakness and headaches. WBC 12.1, platelet 924, haptoglobin 613, sed rate 114, C-Reactive protein 13.3. 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 No pertinent past medical history. Past Surgical History Past Surgical History: Procedure Laterality Date APPENDECTOMY TONSILLECTOMY TUBAL LIGATION Allergies Allergies Allergen Reactions Penicillin Confusion and Fever Current Medications cyanocobalamin, 1,000 mcg, oral, Daily enoxaparin (LOVENOX) injection, 40 mg, subcutaneous, Daily methylPREDNISolone sodium succinate, 1,000 mg, intravenous, Q24H SIXTO sodium chloride, 3 mL, intravenous, Q12H SIXTO Current Infusions dextrose 5 % in water, 100 mL/hr sodium chloride 0.9 %, 20 mL/hr, Last Rate: 20 mL/hr (09/24/23 1008) Home Medications Medications Prior to Admission Medication Sig Dispense Refill Last Dose acetaminophen (TYLENOL EXTRA STRENGTH) 500 mg tablet Take 1 tablet (500 mg total) by mouth every 6 (six) hours as needed for pain. Other - as prescribed Social History Social History Socioeconomic History Marital status: Spouse name: Not on file Number of children: Not on file Years of education: Not on file Highest education level: Not on file Occupational History Not on file Tobacco Use Smoking status: Never Smokeless tobacco: Never Substance and Sexual Activity Alcohol use: Never Drug use: Never Sexual activity: Defer Other Topics Concern Not on file Social History Narrative Not on file Social Determinants of Health Financial Resource Strain: Not on file Food Insecurity: Not on file Transportation Needs: Not on file Physical Activity: Not on file Stress: Not on file Social Connections: Not on file Interpersonal Safety: Not on file Housing Instability: Not on file Primary Care Physician JOHN PATEL, DO Family Histroy History reviewed. No pertinent family history. Review Of Systems Review of Systems Constitutional: Negative for appetite change, diaphoresis and fatigue. HENT: Negative for drooling, facial swelling and trouble swallowing. Eyes: Positive for visual disturbance. Negative for discharge and redness. Intermittent loss of vision bilateral eyes Respiratory: Negative for chest tightness, shortness of breath and wheezing. Cardiovascular: Negative for chest pain and leg swelling. Gastrointestinal: Negative for abdominal pain, nausea and vomiting. Genitourinary: Negative for difficulty urinating. Musculoskeletal: Negative for neck pain and neck stiffness. Skin: Negative for color change. Neurological: Negative for dizziness, seizures, speech difficulty, weakness, light-headedness, numbness and headaches. Psychiatric/Behavioral: Negative for confusion and hallucinations. The patient is not nervous/anxious. Objective Vital signs: Vitals: 09/23/23 2000 09/24/23 0000 09/24/23 0440 09/24/23 0752 BP: 135/81 141/80 132/72 123/66 Pulse: 100 92 78 103 Resp: 18 18 18 Temp: 36.6 C (97.9 F) 36.6 C (97.9 F) 36.6 C (97.9 F) 36.8 C (98.2 F) TempSrc: Oral Oral Oral Oral SpO2: 96% 96% 95% 93% Weight: Height: Temperature Range Last 24 Hours : Temp: 36.8 C (98.2 F) Temp Av.7 C (98 F) Min: 36.6 C (97.9 F) Max: 36.8 C (98.2 F) Admit Weight: 52.6 kg (115 lb 15.4 oz) Body mass index is 21.21 kg/m . Last Weights: Wt Readings from Last 3 Encounters: 09/23/23 52.6 kg (115 lb 15.4 oz) I/O's: Intake/Output Summary (Last 24 hours) at 09/24/2023 1042 Last data filed at 09/24/2023 0900 Gross per 24 hour Intake 380 ml Output -- Net 380 ml Physical Exam Physical Exam Constitutional: General: She is not in acute distress. Appearance: Normal appearance. She is not ill-appearing, toxic-appearing or diaphoretic. HENT: Head: Normocephalic and atraumatic. Eyes: General: Right eye: Discharge present. Left eye: Discharge present. Comments: Intermittent vision loss bilaterally Neck: Vascular: No carotid bruit. Cardiovascular: Rate and Rhythm: Normal rate. Pulses: Normal pulses. Heart sounds: Normal heart sounds. Pulmonary: Effort: Pulmonary effort is normal. No respiratory distress. Breath sounds: Normal breath sounds. No wheezing or rales. Abdominal: General: Bowel sounds are normal. There is no distension. Tenderness: There is no guarding. Musculoskeletal: General: No swelling. Cervical back: Normal range of motion and neck supple. No tenderness. Lymphadenopathy: Cervical: No cervical adenopathy. Neurological: General: No focal deficit present. Mental Status: She is alert and oriented to person, place, and time. Psychiatric: Mood and Affect: Mood normal. Thought Content: Thought content normal. Imaging No results found. No results found. Assessment/Plan 1. Amaurosis fugax like symptom -CTA carotid was done on 09/22/23 images is in the computer but this no reading. Dr. Kristel Reid reviewed the CT images and stated it is okay to proceed with bilateral temporal artery biopsy scheduled for 09/25/2023 at 7:30 a.m. No need to order a carotid duplex at this time. -neuro examination was unremarkable except for intermittent vision loss -steroid management per primary team, Neurology also on board. Thank you very much for allowing us to participate in patient's care. Your referrals are greatly appreciated, please do not hesitate to contact our service with any questions or concerns regarding management. ALANNA Guzman [facility] [place] Office/After hours: [phone] ALANNA Guzman 09/24/23 1521 ALANNA Guzman 09/25/23 0730 Images from the original note were not included. [facility] History and Physical 09/23/2023 Patient Name: Jose David : 1945 Chief Complaint Vision loss Assessment and Plan Principal Problem: Vision blurred Vision loss in the left eye, with elevation in ESR 130 elevation CRP, patient got a dose Solu-Medrol high dose 250, patient was supposed to see Ophthalmology, decreased vision right eye, no tenderness in the temporal area, CT scan of the head reviewed,, admit the patient, Ophthalmology and Neurology, patient already get steroids patient will await for Ophthalmology and Neurology to resume steroids -Plan of care discussed at length with patient at bedside HPI Jose David is a 78 y.o. female with past medical history significant for Patient presented to the emergency department based on ophthalmology recommendation, patient saw Ophthalmology in [place] today evaluated for possible giant cell arthritis, patient stated that she had less of left eye vision for 3 days, can not see anything out of her left eye, she had similar episode in the right eye in the past, ESR was more than 130 CRP 13 CTA of the neck irregular stenosis the high bilateral V2 into the greater extent V3 and proximal V4 vertebral artery patient was sent here for further evaluation and treatment ED COURSE ED TRIAGE VITALS ED Triage Vitals Temp Pulse Resp BP SpO2 -- -- -- -- -- Temp src Heart Rate Source Patient Position BP Location FiO2 (%) -- -- -- -- -- No past medical history on file. No past surgical history on file. Allergy: Patient has no allergy information on record. Prior to Admission medications Not on File Social History: No family history on file. Review of Systems As per HPI; otherwise reviewed and negative per 10-pt review. Exam There were no vitals taken for this visit. No intake or output data in the 24 hours ending 09/23/23 0034 General Appearance: Well-developed, well-nourished. Alert, cooperative, no acute cardiac or respiratory distress Head: Normocephalic, atraumatic Eyes: Decreased vision and vision loss in the left eye Nose: Nares normal, no drainage Throat: Lips and tongue normal; oral mucosa appears moist Neck: Supple, trachea midline, no cervical or supraclavicular adenopathy Lungs: normal breath sounds bilaterally; no wheezes, rhonchi, rales, or crackles; respirations unlabored Heart: Regular rate and rhythm, S1 and S2 normal, no murmur Abdomen: Soft, non-tender, bowel sounds active all four quadrants; no rigidity, rebound tenderness, guarding noted Extremities: Extremities normal, atraumatic, no cyanosis or pedal edema Pulses: Radial and dorsal pedis pulses present and equal bilaterally Skin: [place], warm, dry; no rashes or lesions Neurologic: CNII-XII intact, normal strength and sensation throughout Psychiatric: Patient awake, alert, oriented x 3; mood appears appropriate Laboratory Data No results found for this or any previous visit (from the past 24 hour(s)). Imaging Imaging has been reviewed in detail and can be seen in full via EMR. Imaging: No results found. ECG CARDIOVASCULAR NON-INVASIVE SCANNED REPORT Ordered by an unspecified provider. Electronically signed by: MD Nandini PAREDES M.D. [facility] This note was completed using a voice quantitative researcher system. Every effort was made to ensure accuracy. However, inadvertent computerized quantitative researcher errors may be present. documented in this encounter [facility] 09-24-2023 Plan of care note Problem: Low Risk Fall Score Description: Clifford Fall Score of 0 - 24 or indicated by [facility] Assessment Goal: Patient should be free from fall Description: Interventions: 1. [place] to environment 2. Hourly rounds addressing the 4 P's (Pain, Positioning, Possessions, Potty) 3. Clear area of hazards (spills, clutter, electrical cords, unnecessary equipment) 4. Place equipment (bed & TV controls, call light, phone, urinal) within reach 5. Encourage patient to wear glasses and hearing aides as appropriate 6. Maintain bed in lowest position 7. Lock wheels on bed/wheelchair 8. Provide adequate lighting, including night light 9. Assess need for additional bedding, food/fluids, pain med's prior to sleep/routinely 10. Provide gripper slippers or personal non-skid footwear 11. Teach patient and patient malt liquors sales representative to maintain environment for safety and engage in all aspects of fall prevention program Outcome: Progressing Note: Evaluation of progress towards goal: Patient remained free from falls. Will continue to utilized fall prevention measures. [facility] 09-24-2023 Plan of care note Problem: Pain Goal: Patient goal is pain score less than 4, able to rest, and participant in treatment plan as appropriate Description: INTERVENTIONS: 1. Encourage patient or legal malt liquors sales representative to report early pain and ask for pain medicine when needed 2. Assess pain using appropriate pain scale and include the scale used when documenting 3. Administer analgesics based on type and severity of pain and evaluate response within appropriate time frame 4. Implement non-pharmacological measures as appropriate and evaluate response 5. Consider cultural and social influences on pain and pain management 6. Notify LIP if interventions ineffective or patient reports new pain 7. Monitor vital signs including pulse ox, end-tidal CO2 based on pain intervention 8. Reassess pain per policy 9. Teach patient or legal malt liquors sales representative interventions for comforting Outcome: Progressing Note: Evaluation of progress towards goal: Patient denies pain Problem: Safety Goal: Patient will be injury free during hospitalization Description: INTERVENTIONS: 1. Assess patient's risk for falls and implement fall prevention plan of care per policy 2. Provide and maintain a safe environment 3. Proper use of double Identifiers 4. Medication administration using the 5 rights 5. Hand hygiene 6. Specimens are labeled at the bedside 7. Instruct patient/ patient malt liquors sales representative about use of safety devices 8. Include patient/ patient malt liquors sales representative in decisions related to safety Outcome: Progressing Note: Evaluation of progress towards goal: Provided and maintained a safe environment. Patient remains free of falls and injuries. Problem: Infection Goal: Absence of infection during hospitalization Description: Interventions: 1. Assess and monitor for signs and symptoms of infection 2. Monitor lab/diagnostic results 3. Monitor all insertion sites i.e., indwelling lines, tubes and drains 4. Monitor endotracheal (as able) and nasal secretions for changes in amount and color 5. Administer medications as ordered 6. Instruct and encourage patient and family to use good hand hygiene technique 7. Identify and instruct patient/patient malt liquors sales representative in use of appropriate isolation precautions for identified infection/symptoms 8. Provide and discuss with patient/patient malt liquors sales representative on educational MDRO sheet 9. Encourage and monitor nutritional status daily and consult fundraising director if indicated 10. Implement neutropenic guidelines as needed 11. Review exposure to history of communicable disease and recent travel history on admission 12. Encourage annual influenza vaccine 13. Encourage pneumonia vaccine Outcome: Progressing Note: Evaluation of progress towards goal: Patient afebrile, Monitoring labs. Problem: Knowledge Deficit Goal: Patient/patient malt liquors sales representative demonstrates understanding of disease process, treatment plan, medications, and discharge instructions Description: INTERVENTIONS 1. Complete learning assessment and assess knowledge base 2. Provide teaching at level of understanding 3. Provide teaching via preferred learning method(s) Outcome: Progressing Note: Evaluation of progress towards goal: POC reviewed with patient, verbalizes understanding [facility] 09-24-2023 Progress note Formatting of t his note might be different from the original. DISCHARGE PLANNING NOTE Follow-up Discharge Planning Progress Note Per RN during discharge transition rounds, barriers to discharge are: Echo, temp-art Bx, IVS Discharge Plan: Discussed DC POC today during rounds with bedside nurse. Also discussed with the Pt DC POC. Pt states she lives with her daughter who works but her grandson is there when her daughter is not. So someone is always there. Offered Home care but she declines stating she knows the layout. Informed her when she is DC and if she changes her mind, she can always go through her PCP. She will DC home self care with the support of her daughter and grandson. She was independent prior to admission and doesn't use any DME. Reminder on her AVS to make a follow up appt with her PCP. Care Navigation will continue to follow for any discharge needs - Sophia Rajan RN 09/24/23 10:[address] [facility] 09-24-2023 Consult note Formatting of th is note is different from the original. Images from the original note were not included. Vascular History and Physical Examination/Consultation Note Reason for Consultation Bilateral temporal artery biopsy, concern for giant cell arteritis History and Present Illness Jose David is a 78 y.o. White or female who presents to the emergency department from her enterprise software engineer's office. She was being evaluated with an enterprise software engineer for possible giant cell arthritis. She said she experienced vision loss in the left eye on Friday and experienced vision loss in the right eye on Friday. She said since being admitted and started on steroids she has been getting intermittent vision in both eyes that last a few seconds. She denies jaw claudication, but endorsed having jaw tiredness when chewing food because she got her tooth extracted. Denies any numbness and tingling, lateralization of weakness and headaches. WBC 12.1, platelet 924, haptoglobin 613, sed rate 114, C-Reactive protein 13.3. 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 No pertinent past medical history. Past Surgical History Past Surgical History: Procedure Laterality Date APPENDECTOMY TONSILLECTOMY TUBAL LIGATION Allergies Allergies Allergen Reactions Penicillin Confusion and Fever Current Medications cyanocobalamin, 1,000 mcg, oral, Daily enoxaparin (LOVENOX) injection, 40 mg, subcutaneous, Daily methylPREDNISolone sodium succinate, 1,000 mg, intravenous, Q24H SIXTO sodium chloride, 3 mL, intravenous, Q12H SIXTO Current Infusions dextrose 5 % in water, 100 mL/hr sodium chloride 0.9 %, 20 mL/hr, Last Rate: 20 mL/hr (09/24/23 1008) Home Medications Medications Prior to Admission Medication Sig Dispense Refill Last Dose acetaminophen (TYLENOL EXTRA STRENGTH) 500 mg tablet Take 1 tablet (500 mg total) by mouth every 6 (six) hours as needed for pain. Other - as prescribed Social History Social History Socioeconomic History Marital status: Spouse name: Not on file Number of children: Not on file Years of education: Not on file Highest education level: Not on file Occupational History Not on file Tobacco Use Smoking status: Never Smokeless tobacco: Never Substance and Sexual Activity Alcohol use: Never Drug use: Never Sexual activity: Defer Other Topics Concern Not on file Social History Narrative Not on file Social Determinants of Health Financial Resource Strain: Not on file Food Insecurity: Not on file Transportation Needs: Not on file Physical Activity: Not on file Stress: Not on file Social Connections: Not on file Interpersonal Safety: Not on file Housing Instability: Not on file Primary Care Physician JOHN PATEL, DO Family Histroy History reviewed. No pertinent family history. Review Of Systems Review of Systems Constitutional: Negative for appetite change, diaphoresis and fatigue. HENT: Negative for drooling, facial swelling and trouble swallowing. Eyes: Positive for visual disturbance. Negative for discharge and redness. Intermittent loss of vision bilateral eyes Respiratory: Negative for chest tightness, shortness of breath and wheezing. Cardiovascular: Negative for chest pain and leg swelling. Gastrointestinal: Negative for abdominal pain, nausea and vomiting. Genitourinary: Negative for difficulty urinating. Musculoskeletal: Negative for neck pain and neck stiffness. Skin: Negative for color change. Neurological: Negative for dizziness, seizures, speech difficulty, weakness, light-headedness, numbness and headaches. Psychiatric/Behavioral: Negative for confusion and hallucinations. The patient is not nervous/anxious. Objective Vital signs: Vitals: 09/23/23 2000 09/24/23 0000 09/24/23 0440 09/24/23 0752 BP: 135/81 141/80 132/72 123/66 Pulse: 100 92 78 103 Resp: 18 18 18 Temp: 36.6 C (97.9 F) 36.6 C (97.9 F) 36.6 C (97.9 F) 36.8 C (98.2 F) TempSrc: Oral Oral Oral Oral SpO2: 96% 96% 95% 93% Weight: Height: Temperature Range Last 24 Hours : Temp: 36.8 C (98.2 F) Temp Av.7 C (98 F) Min: 36.6 C (97.9 F) Max: 36.8 C (98.2 F) Admit Weight: 52.6 kg (115 lb 15.4 oz) Body mass index is 21.21 kg/m . Last Weights: Wt Readings from Last 3 Encounters: 09/23/23 52.6 kg (115 lb 15.4 oz) I/O's: Intake/Output Summary (Last 24 hours) at 09/24/2023 1042 Last data filed at 09/24/2023 0900 Gross per 24 hour Intake 380 ml Output -- Net 380 ml Physical Exam Physical Exam Constitutional: General: She is not in acute distress. Appearance: Normal appearance. She is not ill-appearing, toxic-appearing or diaphoretic. HENT: Head: Normocephalic and atraumatic. Eyes: General: Right eye: Discharge present. Left eye: Discharge present. Comments: Intermittent vision loss bilaterally Neck: Vascular: No carotid bruit. Cardiovascular: Rate and Rhythm: Normal rate. Pulses: Normal pulses. Heart sounds: Normal heart sounds. Pulmonary: Effort: Pulmonary effort is normal. No respiratory distress. Breath sounds: Normal breath sounds. No wheezing or rales. Abdominal: General: Bowel sounds are normal. There is no distension. Tenderness: There is no guarding. Musculoskeletal: General: No swelling. Cervical back: Normal range of motion and neck supple. No tenderness. Lymphadenopathy: Cervical: No cervical adenopathy. Neurological: General: No focal deficit present. Mental Status: She is alert and oriented to person, place, and time. Psychiatric: Mood and Affect: Mood normal. Thought Content: Thought content normal. Imaging No results found. No results found. Assessment/Plan 1. Amaurosis fugax like symptom -CTA carotid was done on 09/22/23 images is in the computer but this no reading. Dr. Kristel Reid reviewed the CT images and stated it is okay to proceed with bilateral temporal artery biopsy scheduled for 09/25/2023 at 7:30 a.m. No need to order a carotid duplex at this time. -neuro examination was unremarkable except for intermittent vision loss -steroid management per primary team, Neurology also on board. Thank you very much for allowing us to participate in patient's care. Your referrals are greatly appreciated, please do not hesitate to contact our service with any questions or concerns regarding management. ALANNA Guzman [facility] [place] Office/After hours: [phone] ALANNA Guzman 09/24/23 1521 [facility] [employer] Work Phone: 09-23-2023 Plan of care note Problem: Pain Goal: Patient goal is pain score less than 4, able to rest, and participant in treatment plan as appropriate Description: INTERVENTIONS: 1. Encourage patient or legal malt liquors sales representative to report early pain and ask for pain medicine when needed 2. Assess pain using appropriate pain scale and include the scale used when documenting 3. Administer analgesics based on type and severity of pain and evaluate response within appropriate time frame 4. Implement non-pharmacological measures as appropriate and evaluate response 5. Consider cultural and social influences on pain and pain management 6. Notify LIP if interventions ineffective or patient reports new pain 7. Monitor vital signs including pulse ox, end-tidal CO2 based on pain intervention 8. Reassess pain per policy 9. Teach patient or legal malt liquors sales representative interventions for comforting Outcome: Progressing Note: Evaluation of progress towards goal: monitor pain levels Problem: Safety Goal: Patient will be injury free during hospitalization Description: INTERVENTIONS: 1. Assess patient's risk for falls and implement fall prevention plan of care per policy 2. Provide and maintain a safe environment 3. Proper use of double Identifiers 4. Medication administration using the 5 rights 5. Hand hygiene 6. Specimens are labeled at the bedside 7. Instruct patient/ patient malt liquors sales representative about use of safety devices 8. Include patient/ patient malt liquors sales representative in decisions related to safety Outcome: Progressing Note: Evaluation of progress towards goal: patient will remain free from injury Problem: Infection Goal: Absence of infection during hospitalization Description: Interventions: 1. Assess and monitor for signs and symptoms of infection 2. Monitor lab/diagnostic results 3. Monitor all insertion sites i.e., indwelling lines, tubes and drains 4. Monitor endotracheal (as able) and nasal secretions for changes in amount and color 5. Administer medications as ordered 6. Instruct and encourage patient and family to use good hand hygiene technique 7. Identify and instruct patient/patient malt liquors sales representative in use of appropriate isolation precautions for identified infection/symptoms 8. Provide and discuss with patient/patient malt liquors sales representative on educational MDRO sheet 9. Encourage and monitor nutritional status daily and consult fundraising director if indicated 10. Implement neutropenic guidelines as needed 11. Review exposure to history of communicable disease and recent travel history on admission 12. Encourage annual influenza vaccine 13. Encourage pneumonia vaccine Outcome: Progressing Note: Evaluation of progress towards goal: monitor for signs and symptoms of infection [facility] [employer] [facility] 09-23-2023 Plan of care note Problem: Pain Goal: Patient goal is pain score less than 4, able to rest, and participant in treatment plan as appropriate Description: INTERVENTIONS: 1. Encourage patient or legal malt liquors sales representative to report early pain and ask for pain medicine when needed 2. Assess pain using appropriate pain scale and include the scale used when documenting 3. Administer analgesics based on type and severity of pain and evaluate response within appropriate time frame 4. Implement non-pharmacological measures as appropriate and evaluate response 5. Consider cultural and social influences on pain and pain management 6. Notify LIP if interventions ineffective or patient reports new pain 7. Monitor vital signs including pulse ox, end-tidal CO2 based on pain intervention 8. Reassess pain per policy 9. Teach patient or legal malt liquors sales representative interventions for comforting Outcome: Progressing Note: Evaluation of progress towards goal: Patient reporting pain. PRN pain medication provided. Relaxation encouraged. Emotional support given. Problem: Safety Goal: Patient will be injury free during hospitalization Description: INTERVENTIONS: 1. Assess patient's risk for falls and implement fall prevention plan of care per policy 2. Provide and maintain a safe environment 3. Proper use of double Identifiers 4. Medication administration using the 5 rights 5. Hand hygiene 6. Specimens are labeled at the bedside 7. Instruct patient/ patient malt liquors sales representative about use of safety devices 8. Include patient/ patient malt liquors sales representative in decisions related to safety Outcome: Progressing Note: Evaluation of progress towards goal: Patient free from falls and injury. Continue to monitor. Problem: Infection Goal: Absence of infection during hospitalization Description: Interventions: 1. Assess and monitor for signs and symptoms of infection 2. Monitor lab/diagnostic results 3. Monitor all insertion sites i.e., indwelling lines, tubes and drains 4. Monitor endotracheal (as able) and nasal secretions for changes in amount and color 5. Administer medications as ordered 6. Instruct and encourage patient and family to use good hand hygiene technique 7. Identify and instruct patient/patient malt liquors sales representative in use of appropriate isolation precautions for identified infection/symptoms 8. Provide and discuss with patient/patient malt liquors sales representative on educational MDRO sheet 9. Encourage and monitor nutritional status daily and consult fundraising director if indicated 10. Implement neutropenic guidelines as needed 11. Review exposure to history of communicable disease and recent travel history on admission 12. Encourage annual influenza vaccine 13. Encourage pneumonia vaccine Outcome: Progressing Note: Evaluation of progress towards goal: Patient receiving antibiotics as ordered. Continue to monitor. Problem: Knowledge Deficit Goal: Patient/patient malt liquors sales representative demonstrates understanding of disease process, treatment plan, medications, and discharge instructions Description: INTERVENTIONS 1. Complete learning assessment and assess knowledge base 2. Provide teaching at level of understanding 3. Provide teaching via preferred learning method(s) Outcome: Progressing Note: Evaluation of progress towards goal: Plan of care reviewed. Patient verbalizes understanding. Reinforcement is necessary. Continue to monitor. Problem: Discharge Planning Goal: Discharge to post-acute care, other facility, or home with appropriate resources Description: Patient's goal is: INTERVENTIONS 1. Conduct assessment to determine patient/family and health care team treatment goals, and need for post-acute services based on payer coverage, community resources, and patient preferences, and barriers to discharge 2. Coordinate with Social work, Care Navigation, and Utilization Review to arrange appropriate level of services according to patient's needs based on patient preference and payer coverage in collaboration with the physician and health care team 3. Address psychosocial, clinical, and financial barriers to discharge as identified in assessment in conjunction with the patient/family and health care team 4. Consult appropriate ancillary services (i.e.. PT/OT/ST, etc) as needed 5. Communicate with and update the patient/family, physician, and health care team regarding progress on the discharge plan 6. Identify discharge learning needs (meds, wound care, etc). 7. Arrange for needed discharge transportation as appropriate Outcome: Progressing Note: Evaluation of progress towards goal: Discharge Plan Reviewed. Pt verbalizes understanding. Reinforcement is necessary. Continue to monitor. Problem: Low Risk Fall Score Description: Clifford Fall Score of 0 - 24 or indicated by [facility] Assessment Goal: Patient should be free from fall Description: Interventions: 1. [place] to environment 2. Hourly rounds addressing the 4 P's (Pain, Positioning, Possessions, Potty) 3. Clear area of hazards (spills, clutter, electrical cords, unnecessary equipment) 4. Place equipment (bed & TV controls, call light, phone, urinal) within reach 5. Encourage patient to wear glasses and hearing aides as appropriate 6. Maintain bed in lowest position 7. Lock wheels on bed/wheelchair 8. Provide adequate lighting, including night light 9. Assess need for additional bedding, food/fluids, pain med's prior to sleep/routinely 10. Provide gripper slippers or personal non-skid footwear 11. Teach patient and patient malt liquors sales representative to maintain environment for safety and engage in all aspects of fall prevention program Outcome: Progressing Note: Evaluation of progress towards goal: Patient free from falls and injury. Continue to monitor. [facility] [employer] 09-23-2023 Consult note Associated Order (s): IP CONSULT TO SPIRITUAL CARE Summary: Spiritual Care Consult for Advance Directive Assistance Spiritual Care Consult for Advance Directive Assistance Advance Directive: Manager Target provided patient with education on the need for advance directives and a copy of the [place] Advance Directive packet. Manager [employer] assisted patient in completing the advance directives. Patient completed and signed a healthcare power of consumer attorney. Patient was given the original and a copy. One copy placed in patient's chart. A plastics spreading machine operator is available 17/03 to offer spiritual and emotional support and may be reached through the [facility] rolls mill operator at [phone]. [employer] 09-23-2023 Progress note Formatting of t his note is different from the original. Images from the original note were not included. DISCHARGE PLANNING NOTE Discussed patient during rounds today. Met with patient and son and explained role. Patient is alert and oriented x 3. Patient was admitted for: stroke-like symptoms. Prior to arrival patient lived with her daughter in a 2 story home with 1 step to enter into home without handrail. Bedroom is on 2nd floor but she stated that there is one available on main level if needed. Bathroom on 1st. Patient reports support system: son and dtr. Confirmed PCP with patient: patient reports that her PCP left and that she is getting a new doctor. She will call to get an appointment set up for after d/c. Confirmed pharmacy with patient: [facility]. Previous DME at home: none. Previous Home Care agency: none. Patient denied any issues with affording food or medications. Hx of alcohol use: denied. Hx of illicit drug use: denied. Hx of tobacco use: denied. Patient's readmission risk is: 9%. Readmission risk will be avoided by: patient following up with new PCP after d/c. Plan is to return home with her dtr, self care . Patient's son reports that he will be able to transport at time of d/c. Barriers- ophthalmology consult, MRI. Services Requested: Services Requested Discharge Disposition: Home with self care Does the patient need discharge transportation arranged?: No Mobility issues discussed with transportation provider: No Initial DC Assessment Completed: Yes Patient Goals: Patient/Caregiver Goals Patient/Caregiver Goals: Home No Needs Goals: Goals (pt-stated) Evaluation of progress towards goal: Home with dtr, self care - LIANE KEN 09/23/23 2:07 PM [employer] 09-23-2023 Progress note Formatting of t his note might be different from the original. Consulted for MAUREEN to rule out embolic process in setting of sudden vision loss. Discussed with neurology, recommend surface echo with bubble study prior to consideration of MAUREEN. If TTE unremarkable and continued concerns, please let us know. ALANNA Rosario 09/23/23 1300 [employer] Work Phone: 09-23-2023 Consult note Associated Order (s): IP CONSULT TO OPHTHALMOLOGY Date: Reason for consult: I have been asked to evaluate the eyes of this 78-year-old lady who noticed sudden onset of foggy in the left eye 4 days ago this rapidly progressed to complete loss of vision in the left eye.. She saw an device sales consultant who indicated to her that she had a swollen optic nerve head in the left eye and referred her for further evaluation. Her appointment was 2 days later. Two days ago she noticed a sudden loss of vision in the right eye. At this time she claims not to see anything out of either eye. No eye pain on eye movements. She denies any eye pain. No headache. No light flashes or floaters. She denies any bitemporal aches or headaches. She denies any jaw claudication. Her appetite has been good and she denies feeling any general malaise. She gives no history of myalgia or arthritis. Past Ocular History: The patient has Has history of Cataracts Cataract surgery with intra ocular lens implant bilateral. H&P Reviewed: Pt is seen at bedside. Patient communicates appropriately & oriented to self space & time. Examination: Vision: OD 20/no light perception , OS 20/ no light perception Physical Exam External: No pain or discomfort over the distribution of the temporal arteries on either side. Satisfactory pulsations in both temporal arteries. : Normal Lids: Right: Normal position. No Ptosis. Left: Normal No ptosis Extra Ocular Movements: Right: Full No restrictions. No strabismus No nystagmus Left: Full No restrictions No strabismus. No nystagmus. Orbits: OD: Intact orbital rim.: OS: Intact Orbital rim: Right: Cr N 3-7 Normal Left Cr N 3-7 Normal Visual Ivey: OD Confrontation: 360 absolute visual field deficit. OS: Confrontation: 360 complete visual field deficit Anterior Segment Conjunctiva: : OD: Normal OS: Normal Sclera: : OD: Clear OS: Clear: Cornea: OD Clear OS: Clear : Anterior Chamber: : OD:Deep & Clear OS: Deep & Clear Lens: : OD: PCIOL with clear visual axis OS: PCIOL with clear visual axis: Pupils: OD Size 6mm, Round, Reacts 0+, No affarent defect. OS Size 7mm, Round, Reacts 0+, No affarent defect. Intra Ocular Pressure: OD: mmHg - Tonopen: OD: Normotensive: OS MmHg - Tonopen OS: Normotensive Vitreous: Clear OU No Floaters OU No Hemorrhage OU Fundi: Undilated OD; 3+ swollen, 3+ pallor, 3+ blurriness of disc margins. OS: 3+ swollen, 3+ pallor 3+ blurred elevated disc margin Cup/Disc Ratio . Vessels: OD: Attenuated retinal arteries with box scar blood flow. Mildly swollen pale nerve fiber layer. OS: Normal size and distribution of retinal vessels. Macula: OD: Visible osman-red spot. OS: Appears normal Retina: Fully attached in all quadrants.OU Retina Periphery: No holes or tears or retina detachment. OU 1. 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 See fundus pictures in media. The sequential profound visual loss in both eyes with elevated ESR and CRP is absolutely suggestive of giant cell arteritis. Aggressive steroid therapy is advocated. Temporal artery biopsy is indicated. Thanks Montana Bartlett MD, FACS. [employer] Work Phone: 09-23-2023 Consult note Associated Order (s): IP CONSULT TO HEMATOLOGY HEMATOLOGY ONCOLOGY CONSULT NOTE Reason for consult: Thrombocytosis History of present illness: The patient is a 78 y.o. female with no significant past medical history presented to her eye doctor on 09/19/2023 due to blurry vision in left eye, she was told her optic disc was swollen and the patient was given a referral to enterprise software engineer. Over the weekend patients vision in left eye continued to worsen and eventually lost all vision in left eye. Patient was seen by enterprise software engineer 09/22/2023 and time she would decreased vision also in her right eye. It was recommended that she go straight to the emergency department, for concern for giant cell arteritis. Initially she went to [facility] where they gave her Solu-Medrol 250 mg IV 1 dose and then transferred her to [facility]. When she arrived at [facility] she had complete vision loss in both eyes. Neurology has seen patient she was noted to have elevated platelet count 924,000, elevation of ESR 130, and CRP 13.3. Neurology has ordered orbit MRI, and brain MRI which are pending. Neurology gave differential diagnosis of bilateral transverse myelitis versus ischemic retinopathy/GCA. Patient was also found to be anemic, iron 25, TIBC 179, iron saturation 14%, ferritin 478. Folate and B12 are pending. Peripheral smear and JAK2 mutation are also pending. At the time of exam pt is laying in bed with no family at bedside. States she was doing well until Friday when started having L vision loss. She denies any pain, NAGY, SOB, fever or chills. She denies any swelling in her legs are pain. 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 She takes no regular medication, she has had appendectomy, tubal ligation, procedure on her neck due to pain. Oncology History No history exists. Review of Systems Constitutional: Negative for chills, diaphoresis, fatigue and fever. Eyes: Positive for visual disturbance (complete vision loss bilaterally). Negative for pain, discharge and redness. Respiratory: Negative for shortness of breath. Cardiovascular: Negative for leg swelling. Gastrointestinal: Negative for blood in stool. Neurological: Negative for dizziness, facial asymmetry, weakness and headaches. Hematological: Does not bruise/bleed easily. Psychiatric/Behavioral: Negative for confusion. Objective Physical Exam: Vitals: BP 148/74 Pulse 105 Temp 36.6 C (97.9 F) (Oral) Resp 20 Ht 157.5 cm (5' 2 ) Wt 52.6 kg (115 lb 15.4 oz) SpO2 94% BMI 21.21 kg/m Body mass index is 21.21 kg/m . General: Well appearing, in no acute distress. Eyes: total vision loss bilaterally ENT: Pharyngeal mucosa was moist without exudate, inflammation or ulcerations. Tongue was midline and appeared normal. Gums were unremarkable. Lymph nodes: No palpable adenopathy. Neck: Supple. There were no masses, tenderness. Trachea was midline. Respiratory: Respirations were non-labored. Lungs were clear to auscultation. Cardiac: Regular rate and rhythm, S1 and S2 sounds were normal. There were no rubs or gallops. Abdomen: Soft, non-tender, Nondistended. Bowel sounds audible in all four quadrants. There were no palpable masses. The liver and spleen were not enlarged. Extremities: There was no clubbing, Cyanosis, edema. Skin: There was no obvious rashes, bruising or ecchymosis. Back exam: No palpable tenderness was appreciated. Neurologic: There was no unilateral weakness. Mood and affect: Normal. Lines, Drains, Airways: peripheral IV ECO- Symptomatic; fully ambulatory History reviewed. No pertinent past medical history. Past Surgical History: Procedure Laterality Date APPENDECTOMY TONSILLECTOMY TUBAL LIGATION History reviewed. No pertinent family history. Social History Socioeconomic History Marital status: Spouse name: Not on file Number of children: Not on file Years of education: Not on file Highest education level: Not on file Occupational History Not on file Tobacco Use Smoking status: Never Smokeless tobacco: Never Substance and Sexual Activity Alcohol use: Never Drug use: Never Sexual activity: Defer Other Topics Concern Not on file Social History Narrative Not on file Social Determinants of Health Financial Resource Strain: Not on file Food Insecurity: Not on file Transportation Needs: Not on file Physical Activity: Not on file Stress: Not on file Social Connections: Not on file Interpersonal Safety: Not on file Housing Instability: Not on file Allergies Allergen Reactions Penicillin Confusion and Fever Inpatient scheduled medication: sodium chloride, 3 mL, intravenous, Q12H SIXTO Recent Labs Recent Results (from the past 72 hour(s)) Comprehensive metabolic panel Collection Time: 09/23/23 6:28 AM Result Value Ref Range Sodium 139 134 - 146 mmol/L Potassium, Bld 3.7 3.5 - 5.0 mmol/L Chloride 101 98 - 109 mmol/L CO2 25 22 - 32 mmol/L Anion gap 13 5 - 15 mmol/L BUN 14 5 - 27 mg/dL Creatinine 0.49 0.40 - 1.00 mg/dL Glucose 141 (H) 65 - 99 mg/dL Calcium 8.6 8.5 - 10.5 mg/dL Total Protein 6.9 6.0 - 8.0 g/dL Albumin 3.0 (L) 3.2 - 5.3 g/dL Alkaline Phosphatase 227 (H) 39 - 130 U/L AST 12 0 - 41 U/L ALT 11 0 - 31 U/L Total bilirubin 0.6 0.3 - 1.2 mg/dL eGFR (CKD-EPI)non-race dependent >90 >59 ml/min/1.73sq.m CBC auto differential Collection Time: 09/23/23 6:28 AM Result Value Ref Range White Blood Cells 11.1 (H) 4.0 - 11.0 X10E9/L RBC count 3.07 (L) 3.80 - 5.20 X10E12/L Hemoglobin 8.6 (L) 11.7 - 15.5 g/dL Hematocrit 26.2 (L) 35 - 47 % MCV 85 80 - 100 fL MCH 28.1 27 - 34 pg MCHC 32.9 32 - 36 g/dL RDW 14.6 11.5 - 15.0 % Platelets 917 (H) 150 - 450 X10E9/L MPV 6.3 (L) 7 - 12 fL % neutrophils 93.3 % % lymphocytes 3.6 % % monocytes 1.0 % % eosinophils 0.0 % % Basophils 2.1 % Neutrophils Absolute (A) 10.4 (H) 1.5 - 6.6 X10E9/L Lymphocytes Absolute 0.4 (L) 1.0 - 3.5 X10E9/L Monocytes Absolute 0.1 0 - 0.9 X10E9/L Eosinophils Absolute 0.0 0.0 - 0.4 X10E9/L Basophils Absolute 0.2 0.0 - 0.2 X10E9/L C-reactive protein Collection Time: 09/23/23 6:28 AM Result Value Ref Range CRP 13.3 (H) 0.000 - 0.744 mg/dL Iron and TIBC Collection Time: 09/23/23 6:28 AM Result Value Ref Range Iron 25 (L) 50 - 170 ug/dL Tibc-calc only do not order 179 (L) 250 - 425 ug/dL Iron Saturation 14 (L) 15 - 50 % SATURATION Ferritin Collection Time: 09/23/23 6:28 AM Result Value Ref Range Ferritin 478 (H) 11 - 307 ng/mL Folate Collection Time: 09/23/23 6:28 AM Result Value Ref Range Folate 13.0 >5.8 ng/mL CBC auto differential Collection Time: 09/23/23 8:18 AM Result Value Ref Range White Blood Cells 12.1 (H) 4.0 - 11.0 X10E9/L RBC count 3.27 (L) 3.80 - 5.20 X10E12/L Hemoglobin 9.1 (L) 11.7 - 15.5 g/dL Hematocrit 27.8 (L) 35 - 47 % MCV 85 80 - 100 fL MCH 27.8 27 - 34 pg MCHC 32.7 32 - 36 g/dL RDW 14.4 11.5 - 15.0 % Platelets 924 (H) 150 - 450 X10E9/L MPV 6.2 (L) 7 - 12 fL % neutrophils 95.5 % % lymphocytes 3.3 % % monocytes 1.0 % % eosinophils 0.0 % % Basophils 0.2 % Neutrophils Absolute (A) 11.5 (H) 1.5 - 6.6 X10E9/L Lymphocytes Absolute 0.4 (L) 1.0 - 3.5 X10E9/L Monocytes Absolute 0.1 0 - 0.9 X10E9/L Eosinophils Absolute 0.0 0.0 - 0.4 X10E9/L Basophils Absolute 0.0 0.0 - 0.2 X10E9/L Recent Imaging: No results found. Diagnosis Problem list: Patient Active Problem List Diagnosis Vision blurred Stroke-like symptoms Assessment/Plan Impression: Thrombocytosis - plts- 924, last documented plt count was normal in 2019 - ESR- 130, CRP- 13.3 - Ferritin- 478 - Jak2-pending - peripheral smear- pending 2. Normocytic Normochromic Anemia - Hgb- 9.1 last documented Hgb normal in 2019 - Iron- 25, TIBC- 179, sat- 14%, ferritin- 478 - B-12 and folate Pending - peripheral smear pending 3. 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 Plan: - Will complete anemia and thrombocytosis workup with the following labs: APS, hepatitis panel, LDH/hapto/retic, HENRRY, flow cytometry, SPEP, BCR/ABL and MMA. - If BCR/ABL or TONIA 2 come back positive, MPN, would recommend bone marrow biopsy - agree with checking SILVIA and rheumatoid factor. - we will defer use of aspirin to primary team at this time, if evidence of MPN would recommend starting aspirin. - Will await MRI brain and orbit MRI - appreciate Neurology and ophthalmology recommendations - Ophthalmology has recommended high dose steroids and temporal artery bx. Transfusion Parameters: Hgb < 7 and Plts < 10,000, unless active bleeding transfuse Plts < 20,000 VTE Prophylaxis: lovenox Code Status: Full Code Further medical management of comorbid conditions per primary team and consulting services, appreciate assistance The patient was seen and examined and all plans and orders were discussed with the attending physician on service today, Dr. Pizano Thank you for the consultation. Caitie Wilder PA-C [facility] [address] [place] [address] September 23, 2023, 10:20 AM Please note that portions of this note were generated using voice recognition [employer] dictation software. Although every effort was made to ensure the accuracy of this automated quantitative researcher, some errors in quantitative researcher may have occurred. I have personally performed a face to face evaluation of this patient independently of Ms. Wilder. I have reviewed the assessment findings and plan as documented in the note and made all necessary revisions. I have reviewed lab and imaging data independently. Management plan has been discussed with Ms. Wilder. My additional findings and orders are as follows: Vision loss, L>R with significantly elevated CRP and ESR Started on solu medrol for treatment of giant cell arteritis Blood work sjowed new onset anemia, thrombocytosis Work up ongoing for nutritional deficiency versus hemolysis versus infection vs. Inflammation/autoimmune condition vs. Bone marrow etiology including lymphoma/leukemia, MM, MPN If persistent neutrophilia and thrombocytosis and JAK2 v617 and BCR-abl negative, will check additional mutation for MPN evaluation Agree with MRI Will defer to neurology if need to start aspirin Joni PIZANO M.D. [facility] Day time contact: After hours answering service: [phone] [place] [address] [facility] [employer] [facility] Work Phone: 09-23-2023 Plan of care note Problem: Safety Goal: Patient will be injury free during hospitalization Description: INTERVENTIONS: 1. Assess patient's risk for falls and implement fall prevention plan of care per policy 2. Provide and maintain a safe environment 3. Proper use of double Identifiers 4. Medication administration using the 5 rights 5. Hand hygiene 6. Specimens are labeled at the bedside 7. Instruct patient/ patient malt liquors sales representative about use of safety devices 8. Include patient/ patient malt liquors sales representative in decisions related to safety Outcome: Progressing Note: Evaluation of progress towards goal: Patient calls out appropriately. Problem: Infection Goal: Absence of infection during hospitalization Description: Interventions: 1. Assess and monitor for signs and symptoms of infection 2. Monitor lab/diagnostic results 3. Monitor all insertion sites i.e., indwelling lines, tubes and drains 4. Monitor endotracheal (as able) and nasal secretions for changes in amount and color 5. Administer medications as ordered 6. Instruct and encourage patient and family to use good hand hygiene technique 7. Identify and instruct patient/patient malt liquors sales representative in use of appropriate isolation precautions for identified infection/symptoms 8. Provide and discuss with patient/patient malt liquors sales representative on educational MDRO sheet 9. Encourage and monitor nutritional status daily and consult fundraising director if indicated 10. Implement neutropenic guidelines as needed 11. Review exposure to history of communicable disease and recent travel history on admission 12. Encourage annual influenza vaccine 13. Encourage pneumonia vaccine Outcome: Progressing Note: Evaluation of progress towards goal: Patient has no signs and symptoms of infection. Problem: Low Risk Fall Score Description: Clifford Fall Score of 0 - 24 or indicated by [facility] Assessment Goal: Patient should be free from fall Description: Interventions: 1. [place]icknell to environment 2. Hourly rounds addressing the 4 P's (Pain, Positioning, Possessions, Potty) 3. Clear area of hazards (spills, clutter, electrical cords, unnecessary equipment) 4. Place equipment (bed & TV controls, call light, phone, urinal) within reach 5. Encourage patient to wear glasses and hearing aides as appropriate 6. Maintain bed in lowest position 7. Lock wheels on bed/wheelchair 8. Provide adequate lighting, including night light 9. Assess need for additional bedding, food/fluids, pain med's prior to sleep/routinely 10. Provide gripper slippers or personal non-skid footwear 11. Teach patient and patient malt liquors sales representative to maintain environment for safety and engage in all aspects of fall prevention program Outcome: Progressing Note: Evaluation of progress towards goal: Patient remained free from falls. Will continue to utilized fall prevention measures. [facility] [employer] [facility] 09-23-2023 Consult note Associated Order (s): IP CONSULT TO NEUROLOGY Images from the original note were not included. [facility] Neurology General Neurology Consultation Note Consult Neurology Service: [phone] Primary Team: SAMUEL Chief Complaint and Reason for Consultation: Vision loss History: Jose David is a 78 y.o. year old female for whom Neurology was consulted for chief complaint of vision loss. History was taken from the patient and chart review. Patient has no significant past medical history, she was doing well till Tuesday 09/19 when she started noticing blurry vision in her left eye, according to the patient she was seen by an eye doctor on that day, the patient was told that her optic disc is swollen, and the patient was given referral to eye center in [facility], on Friday and Friday, vision on the left eye worsened significantly and she lost her vision on the left eye. On Friday 09/22, patient came to [place] to see an eye doctor, who asked her to go to the ED. patient initially went to [facility], given Solu-Medrol 250 mg IV once, transferred to [facility] for further workup and ophthalmology evaluation. According to the patient, her right eye vision worsened significantly on Friday, and she lost her vision on both eyes. Patient had no past medical history, she has not taking any scheduled medications, patient lives with her daughter, she is driving and working. Walking with no assistive devices. Upon initial assessment in [facility], patient had complete vision loss on both eyes, she described seeing bright lights intermittently, patient said that few hours before she was able to see her cell phone. Patient denied any headache, painful eye movements, numbness, tingling or any other new symptoms. Past Medical History/Surgical History: Active Ambulatory Problems Diagnosis Date Noted No Active Ambulatory Problems Resolved Ambulatory Problems Diagnosis Date Noted No Resolved Ambulatory Problems No Additional Past Medical History Family History: No family history on file. Social History: Social History Socioeconomic History Marital status: Spouse name: Not on file Number of children: Not on file Years of education: Not on file Highest education level: Not on file Occupational History Not on file Tobacco Use Smoking status: Not on file Smokeless tobacco: Not on file Substance and Sexual Activity Alcohol use: Not on file Drug use: Not on file Sexual activity: Not on file Other Topics Concern Not on file Social History Narrative Not on file Social Determinants of Health Financial Resource Strain: Not on file Food Insecurity: Not on file Transportation Needs: Not on file Physical Activity: Not on file Stress: Not on file Social Connections: Not on file Interpersonal Safety: Not on file Housing Instability: Not on file Medications: @MEDADMIN@ Allergies: Not on File Complete Review of Systems: Constitutional: No Weight Change, No Fever, No Chills, No Night Sweats, No Fatigue/Malaise Eyes: Bilateral vision loss Cardiovascular: No Chest Pain, No SOB, No PND, No Orthopnea, No Palpitations Respiratory: No Cough, No Sputum, No Wheezing, No Dyspnea Gastrointestinal: No Nausea/Vomiting, No Diarrhea, No Constipation, No Dysphagia, No Hematochezia/Melena Genitourinary: No Dysuria, No Urinary Frequency, No Hematuria, No Incontinence, No Urgency, No Urinary Flow Changes Musculoskeletal: No Arthralgias, No Myalgias, No Joint Swelling/Joint Stiffness, No Back Pain, No Neck Pain Neuro: No Weakness, No Numbness, No Paresthesias, No Loss of Consciousness, No Syncope, No Dizziness, No Headache, No Recent Falls Psych: No Anxiety/Panic, No Depression, No Insomnia, No Personality Changes, No Delusions, No Rumination, No SI/HI, No Memory Changes Heme/Lymph: No Bruising, No Bleeding Physical Exam Vital Signs: Vitals: 09/23/23 0037 BP: 138/86 Pulse: 104 Resp: 17 Temp: 36.6 C (97.9 F) SpO2: 94% General: Normotensive, in no acute distress. Cardiac Examination: Heart: RRR, no murmurs, no rubs, no gallops. Carotids: No bruit Peripheral Vascular System: Peripheral pulses intact Neurological Examination: Higher Mental Function: Orientated to time, place, person Attention span and concentration intact Recent and Remote Memory Intact Language intact Fund of knowledge appropriate Ophthalmological Examination: Clear conjunctiva, no cataracts. Optic disc is swollen and pale on both sides LCranial Nerve Examination: II: Not tracking, no response to visual threat, vision impaired III, IV, & : EOM intact, no ptosis, no nystagmus seen. Pupils are dilated, sluggishly reactive on the left, brisk reactive on the right V: Facial sensation is intact. VII: no facial asymmetry, facial movement intact. VIII: hearing is normal. IX-X: Palate elevates in the midline. XI: Normal trapezius strength and/or movement. XII: Tongue movement is normal, position is midline and no fasciculations are observed. Tongue strength intact. Motor: Power -- No focal motor weakness noted in BL upper or lower extremities. Bulk and muscle tone are intact in BL upper and lower extremities. No rigidity or spasticity. No atrophy or abnormal movements noted. No dystonia, or motor tics. No bradykinesia, postural or kinetic tremor noted. No fasciculation or myotonia noted. No abnormal movements noticed. No evidence of pseudo bulbar paralysis; no sialorrhea, difficulties swallowing. No tremors were noted Deep Tendon Reflexes: Right, Left: Biceps 2, 2 Brachioradialis 2, 2 Patellae 2, 2 Plantar response upgoing, Ronn negative Sensory examination: Intact sensation to light touch equal and symmetrical bilateral upper and lower Cerebellar: No dysmetria Gait and station: Deferred Pertinent Labs: Reportedly ESR and CRP were elevated at [facility] Imaging: CTH, head and neck CTA done at [facility], reportedly unremarkable Other Testing: None Assessment: Jose David is 78 years old female patient with no significant PMH, currently being evaluated for progressive vision loss, started on the left eye, then progressed to the right eye. Visual acuity is very impaired currently, physical exam concerning for bilateral optic disc swelling and pallor Impression: Bilateral rapid progressive vision loss, concern for bilateral transverse myelitis versus ischemic retinopathy/GCA Plan: Will get ESR and CRP. Orbit MRI with and without contrast. Brain MRI with and without contrast Patient given Solu-Medrol 1 g IV Agree with ophthalmologic evaluation. Will consider spinal tap. Will continue to follow Carlitos Caraballo MD PGY-3, Neurology Resident [facility] Staffed with: (Dr. Byrne) This patient is being followed by the Neurology Resident service. Contact attending directly during these hours: Friday to 7:30-8:30 A.M. to Friday 12-1:00 p.m. Primary Neurology service: [phone] Consult neurology service: [phone] Resident Stroke Service: [phone] If the patient belongs to the Stroke TRAM service please contact the Stroke TRAM directly. Associated attestation - Sandy Pizano MD - 09/23/2023 3:06 PM EST Attending Attestation: I saw the patient. I performed the critical/braswell portions of the service. I was directly involved in the management and treatment plan of the patient. I reviewed the resident's note. Additional Notes/Findings: 78 y.o. 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 [facility] History and Physical 09/23/2023 Patient Name: Jose David : 1945 Chief Complaint Vision loss Assessment and Plan Principal Problem: Vision blurred Vision loss in the left eye, with elevation in ESR 130 elevation CRP, patient got a dose Solu-Medrol high dose 250, patient was supposed to see Ophthalmology, decreased vision right eye, no tenderness in the temporal area, CT scan of the head reviewed,, admit the patient, Ophthalmology and Neurology, patient already get steroids patient will await for Ophthalmology and Neurology to resume steroids -Plan of care discussed at length with patient at bedside HPI Jose David is a 78 y.o. female with past medical history significant for Patient presented to the emergency department based on ophthalmology recommendation, patient saw Ophthalmology in [place] today evaluated for possible giant cell arthritis, patient stated that she had less of left eye vision for 3 days, can not see anything out of her left eye, she had similar episode in the right eye in the past, ESR was more than 130 CRP 13 CTA of the neck irregular stenosis the high bilateral V2 into the greater extent V3 and proximal V4 vertebral artery patient was sent here for further evaluation and treatment ED COURSE ED TRIAGE VITALS ED Triage Vitals Temp Pulse Resp BP SpO2 -- -- -- -- -- Temp src Heart Rate Source Patient Position BP Location FiO2 (%) -- -- -- -- -- No past medical history on file. No past surgical history on file. Allergy: Patient has no allergy information on record. Prior to Admission medications Not on File Social History: No family history on file. Review of Systems As per HPI; otherwise reviewed and negative per 10-pt review. Exam There were no vitals taken for this visit. No intake or output data in the 24 hours ending 09/23/23 0034 General Appearance: Well-developed, well-nourished. Alert, cooperative, no acute cardiac or respiratory distress Head: Normocephalic, atraumatic Eyes: Decreased vision and vision loss in the left eye Nose: Nares normal, no drainage Throat: Lips and tongue normal; oral mucosa appears moist Neck: Supple, trachea midline, no cervical or supraclavicular adenopathy Lungs: normal breath sounds bilaterally; no wheezes, rhonchi, rales, or crackles; respirations unlabored Heart: Regular rate and rhythm, S1 and S2 normal, no murmur Abdomen: Soft, non-tender, bowel sounds active all four quadrants; no rigidity, rebound tenderness, guarding noted Extremities: Extremities normal, atraumatic, no cyanosis or pedal edema Pulses: Radial and dorsal pedis pulses present and equal bilaterally Skin: [place], warm, dry; no rashes or lesions Neurologic: CNII-XII intact, normal strength and sensation throughout Psychiatric: Patient awake, alert, oriented x 3; mood appears appropriate Laboratory Data No results found for this or any previous visit (from the past 24 hour(s)). Imaging Imaging has been reviewed in detail and can be seen in full via EMR. Imaging: No results found. ECG CARDIOVASCULAR NON-INVASIVE SCANNED REPORT Ordered by an unspecified provider. Electronically signed by: MD Nandini PAREDES M.D. [facility] This note was completed using a voice quantitative researcher system. Every effort was made to ensure accuracy. However, inadvertent computerized quantitative researcher errors may be present. [facility] Evaluation note Diagnosis Vision blurred- Primary Other specified visual disturbances B12 deficiency Thrombocytosis Essential thrombocythemia Vision blurred Other specified visual disturbances Temporal arteritis (CMS-HCC) Giant cell arteritis Stroke-like symptoms documented in this encounter [facility] Diagnosis Onset Date Resolution Status GERD (gastroesophageal reflux disease) acute Hospital discharge follow-up acute Temporal arteritis acute Vision loss, bilateral acute [facility] Work Phone: Evaluation note* Diagnosis Giant cell arteritis (CMS-HCC)- Primary Giant cell arteritis documented [facility] on filedocumented in [facility] System[facility]ructionsNot on filedocumented in this encounter [facility] Hospital SystemInstructionsNot on filedocumented in this encounter [facility] Summary Purpose Family History No Family History Records FoundNo Family History Records FoundNo Family History Records FoundNo Family History Records FoundNo Family History Records FoundNo Family History Records Found Advance Directives No Advanced Directives Records FoundDocuments on File Type Date Recorded 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 09/23/2023 4:17 PM [facility] of Wood Type Finisher Latest Code Status on File Code Status Date Activated Date Inactivated Comments Full Code 09/23/2023 12:33 AM 09/26/2023 7:44 PM Healthcare Agents on File Name Relationship Healthcare Agent Relationshi p Communication Mike David [facility] Health Care Agent [phone] (Home) Malinda Brito Daughter First Alternate Health Care Agent Documents on File Type Date Recorded 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 09/23/2023 4:17 PM [facility] Pow er of Wood Type Finisher Latest Code Status on File Code Status Date Activated Date Inactivated Comments Full Code 09/23/2023 12:33 AM 09/26/2023 7:44 PM Healthcare Agents on File Name Relationship Healthcare Agent Relationshi p Communication Mike David Son Health Care Agent Malinda Brito Daughter First Alternate Health Care Agent Advance Directive Response Recorded Date/ Time Advance Directives No June 22, 2018 3:12pm Documents on File Type Date Recorded 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 10/03/2023 8:14 AM Durable Power of Wood Type Finisher 09/23/2023 4:17 PM [facility] er of Wood Type Finisher Healthcare Agents on File Name Relationship Healthcare Agent Relationshi p Communication Mike Mane Health Care Agent Malinda Brito Daughter First Alternate Health Care Agent Reason for Referral Specialty Diagnoses / Procedures Referred By Contac t Referred To Contact Diagnoses B12 deficiency Thrombocytosis Vision blurred Temporal arteritis ([facility]) Procedures Follow-up with primary care provider Bart Milian MD [address] [place] [id number] Referral ID Status Reason Start Date Expiration Date V isits Requested Visits Authorized [id number] Pending Review 09/26/2023 09/25/2024 1 1 Specialty Diagnoses / Procedures Referred By Jessica ga Referred To Contact Procedures Adult diet Bart Milian MD [address] [place] [id number] Referral ID Status Reason Start Date Expiration Date V isits Requested Visits Authorized [id number] Pending Review 09/26/2023 09/25/2024 1 1 Chief Complaint and Reason for Visit Chief Complaint ESTABLISH Reason for Visit GERD (gastroesophage al reflux disease) Hospital discharge follow-up Temporal arteritis Vision loss, bilateral Additional Source Comments INFORMATION SOURCE (unrecogn ized section and content) DATE CREATED AUTHOR 11/18/2021 [facility] DATE CREATED AUTHOR AUTHOR'S ORGANIZ ATION 01/31/[address] DATE CREATED AUTHOR AUTHOR'S ORGANIZ ATION 04/15/2023 [facility] DATE CREATED AUTHOR AUTHOR'S ORGANIZ ATION 10/02/2023 [facility] DATE CREATED AUTHOR AUTHOR'S ORGANIZ ATION 10/04/2023 [facility] DATE CREATED AUTHOR AUTHOR'S ORGANIZ ATION 10/24/2023 [facility] Reason for Visit (unrecogniz ed section and content) Specialty Diagnoses / Procedures Referred By Jessica ga Referred To Contact Diagnoses Vision blurred Stroke-like symptoms CVA symptoms Tono Pan MD [address] [place] [address] Referral ID Status Reason Start Date Expiration Date Visits Re quested Visits Authorized [id number] 1 1 Reason Onset Date Comments Hospital Follow-up 09/29/2023 Reason Comments Follow-up Hospital discharge f ollow up. Recent TAB. Reason Onset Date Comments Med Refill 10/17/2023 Scheduled Active and Recently Administ ered Medications (unrecognized section and content) Medication Order 09/24/2023 09/25/2023 09/26/2023 cyanocobalamin tablet 1,000 mcg 1,000 mcg, oral, Daily, First dose on Fri09/23/23 at 1400 0837 (Given - Provider: Kimberly Chin RN) 0613 (OCT Hold - Provider: Automatic Transfer Provider - Reason: Patient not available)0900 (Dose Auto Held - Provider: Automatic Transfer Provider)1151 (OCT Unhold - Provider: Automatic Transfer Provider) 0857 (Given - Provider: Caryn Briceno, RN) enoxaparin (LOVENOX) syringe 40 mg 40 mg, subcutaneous, Daily, First dose on Fri09/23/23 at 1415, Look-alike/sound-alike medication - verify indication for use. 0836 (Given - Provider: Kimberly Chin RN) 0613 (OCT Hold - Provider: Automatic Transfer Provider - Reason: Patient not available)0900 (Dose Auto Held - Provider: Automatic Transfer Provider)1151 (OCT Unhold - Provider: Automatic Transfer Provider) 0855 (Given - Provider: Caryn Briceno, RN) methylPREDNISolone sodium succinate (Solu-MEDROL) 1,000 mg in sodium chloride 0.9 % 50 mL IVPB 1,000 mg, intravenous, at 66 mL/hr, Administer over 60 Minutes, Every 24 hours scheduled, First dose on Fri09/24/23 at 0900, For 2 days, May alter blood glucose or insulin requirements. Look-alike/sound-alike medication - verify indication for use. 1009 (New Bag - Provider: Kimberly Chin RN)1109 (Stop Bag - Provider: Faiza Valverde RN) 0613 (OCT Hold - Provider: Automatic Transfer Provider - Reason: Patient not available)0900 (Dose Auto Held - Provider: Automatic Transfer Provider)1151 (OCT Unhold - Provider: Automatic Transfer Provider) predniSONE (DELTASONE) tablet 60 mg 60 mg, oral, Daily with breakfast, First dose on Fri09/26/23 at 0800, Look-alike/sound-alike medication - verify indication for use. Food-Drug Interaction Education Required May alter blood glucose or insulin requirements Take/give with food Look-alike/sound-alike medication - verify indication for use. 0857 (Given - Provider: Caryn Briceno RN) sodium chloride 0.9 % flush 3 mL 3 mL, intravenous, Every 12 hours scheduled, First dose on Fri09/23/23 at 0045 1009 (Given - Provider: Kimberly Chin RN)2100 (Not Given - Provider: Jc Pelayo RN - Reason: IV infusing) 0613 (OCT Hold - Provider: Automatic Transfer Provider - Reason: Patient not available)0900 (Dose Auto Held - Provider: Automatic Transfer Provider)1151 (OCT Unhold - Provider: Automatic Transfer Provider)2100 (Not Given - Provider: Jc Pelayo RN - Reason: Other) 0901 (Given - Provider: Caryn Briceno, RN) sulfamethoxazole-trimet hoprim (BACTRIM DS) 800-160 mg tablet 1 tablet 1 tablet, oral, 3 times weekly (Once per day on Friday), First dose on Fri09/26/23 at 0900, Indication: PJP prophylaxis 0857 (Given - Provider: Caryn Briceno, RN) PRN Medication Order 09/24/2023 09/25/2023 09/26/2023 acetaminophen (TYLENOL) tablet 650 mg 650 mg, oral, 3 times daily PRN, mild pain - pain scale 1-3, moderate pain - pain scale 4-6, Temperature greater than 38.3 C, Starting on Fri09/23/23 at 0032, For 2 doses, [Warning: Total Acetaminophen not to exceed more than 4 grams (4000 mg) in 24 hours] 0613 (OCT Hold - Provider: Automatic Transfer Provider - Reason: Patient not available)1007 (Given - Provider: Jennifer Lawton RN)115 ([facility] Unhold - Provider: Automatic Transfer Provider) dextrose (GLUTOSE) 40 % gel 15 g 15 g, oral, As needed, low blood sugar, blood glucose less than 70 mg/dL, Starting on Fri09/23/23 at 0032, If patient conscious and taking PO. If blood glucose is not greater than 70 mg/dL after initial treatment, repeat treatment. 612 ([facility] Hold - Provider: Automatic Transfer Provider - Reason: Patient not available)115 ([facility] Unhold - Provider: Automatic Transfer Provider) dextrose 5 % (D5W) infusion 100 mL/hr, intravenous, Continuous PRN, blood glucose less than 70 mg/dL, Starting on Fri09/23/23 at 0032, Use immediately following dextrose 50% or glucagon treatment for patients who are unconscious or NPO. Contact prescriber for additional orders. If blood glucose is not greater than 70 mg/dL after initial treatment, repeat treatment. 612 ([facility] Hold - Provider: Automatic Transfer Provider - Reason: Patient not available)115 ([facility] Unhold - Provider: Automatic Transfer Provider) dextrose 50 % in water (D50W) 50% solution 25 mL 25 mL, intravenous, As needed, low blood sugar, blood glucose less than 70 mg/dL and unconscious or NPO with IV access, Starting on Fri09/23/23 at 0032, Push over 1-3 minutes STAT. If conscious and not NPO, immediately follow with meal tray or high protein (7 grams) snack if tray not available. If NPO, initiate 5% dextrose in water at 100 mL/hr and contact prescriber for additional orders. If blood glucose is not greater than 70 mg/dL after initial treatment, repeat treatment. VESICANT (RED) Warning: HYPERTONIC solution. 612 ([facility] Hold - Provider: Automatic Transfer Provider - Reason: Patient not available)1151 ([facility] Unhold - Provider: Automatic Transfer Provider) fentaNYL (SUBLIMAZE) injection 50 mcg (CANCELED) 50 mcg, intravenous, Every 5 min PRN, Pain Scale 6-10, Starting on Carrie 09/25/23 at 0924, PACU (only), Up to a maximum dose of 150 mcg Look-alike/sound-alike medication - verify indication for use. 0958 (Given - Provider: Jennifer Lawton, RN)1048 (Given - Provider: Jennifer Lawton, RN) gadoteridoL (PROHANCE) injection 5.26 mmol 10.52 mL (COMPLETED) 5.26 mmol (0.1 mmol/kg 52.6 kg), intravenous, Once in imaging, contrast, MRI, Starting on Fri09/24/23 at 0153, For 1 dose, Additional Imaging Orders, VESICANT (RED) 0153 (Given - Provider: Eva Jackman) glucagon HCL injection 1 mg 1 mg, intramuscular, As needed, low blood sugar, blood glucose less than 70 mg/dL and unconscious or NPO without IV access., Starting on Fri09/23/23 at 0032, If conscious and not NPO, immediately follow with meal tray or high protein (7Grams) snack if tray not available. If NPO, initiate IV 5% Dextrose/Water at 100 mL/hr and contact prescriber for additional orders. If blood glucose is not greater than 70 mg/dL after initial treatment, repeat treatment. 0613 ([facility] Hold - Provider: Automatic Transfer Provider - Reason: Patient not available)1151 ([facility] Unhold - Provider: Automatic Transfer Provider) ondansetron (PF) (ZOFRAN) injection 4 mg 4 mg, intravenous, Every 8 hours PRN, nausea, vomiting, Starting on Fri09/23/23 at 0032, Administer over 2-5 minutes. 0613 ([facility] Hold - Provider: Automatic Transfer Provider - Reason: Patient not available)1151 ([facility] Unhold - Provider: Automatic Transfer Provider) sennosides-docusate sodium (SENOKOT-S) 8.6-50 mg 1 tablet 1 tablet, oral, Every 12 hours PRN, constipation, Starting on Fri09/23/23 at 0032 0613 ([facility] Hold - Provider: Automatic Transfer Provider - Reason: Patient not available)1151 ([facility] Unhold - Provider: Automatic Transfer Provider) sodium chloride 0.9 % flush 10 mL (COMPLETED) 10 mL, intravenous, Once in imaging, line care, MRI, Starting on Fri09/24/23 at 0153, For 1 dose, Additional Imaging Orders 0154 (Given - Provider: Eva Gasper) sodium chloride 0.9 % flush 3 mL 3 mL, intravenous, As needed, line care, before and after each intermittent use, Starting on Fri09/23/23 at 0032 0613 ([facility] Hold - Provider: Automatic Transfer Provider - Reason: Patient not available)1151 ([facility] Unhold - Provider: Automatic Transfer Provider) sodium chloride 0.9 % flush bag 25 mL, intravenous, at 100 mL/hr, Administer over 15 Minutes, As needed, line care, line care after IVPB administration, Starting on Fri09/23/23 at 0032 0613 ([facility] Hold - Provider: Automatic Transfer Provider - Reason: Patient not available)1151 ([facility] Unhold - Provider: Automatic Transfer Provider) sodium chloride 0.9 % infusion 20 mL/hr, intravenous, Continuous PRN, to maintain patency of lines, Starting on Fri09/23/23 at 0032 1008 (Restarted - Provider: Kimberly Chin RN) 0613 ([facility] Hold - Provider: Automatic Transfer Provider - Reason: Patient not available)1151 ([facility] Unhold - Provider: Automatic Transfer Provider) sodium chloride 0.9% (NS) irrigation bottle (CANCELED) As needed, Starting on Carrie 09/25/23 at 0807, Intra-op 0807 (Given - Provider: Kristel Reid MD - Comment: GIVEN TO [employer]) Care Teams (unrecognized sec tion and content) Gang Sawyer Relationship Specialty Start Date End Date John Patel DO [address] [place] [address] PCP - General 01/23/17 Gang Sawyer Relationship Specialty Start Date End Date John Patel DO [address] [place] [address] PCP - General 01/23/17 Team Status: Active Member Role Status Dates Giovanna Graf APRN [employer] Primary Care Provider Active Team Status: Inactive Member Role Status Dates Giovanna Graf APRN [employer] Primary Care Provider, Attending Provider Active Start: October 16, 2023 End: October 16, 2023 Gang Sawyer Relationship Specialty Start Date End Date Giovanna Graf APRN-SAMRA [address] [address] PCP - General Nurse Practitioner 10/10/23 Goals (unrecognized section and content) Goals may be documented in a n alternate section FOR RECORDS PERTAINING TO PATIENTS WHO ARE [...] BE BASED ON THE PRIMARY CLINICAL RECORDS. Next Caller [facility]. provides no warranty or guarantee of the accuracy or completeness of information in this document.
--- OUTSIDE RECORDS SUMMARY | 2023-10-30 09:01 | XMS_ITS | CCD ---
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, Giovanna Primary Care Provid er HOUSE, JOHN [...] Penicillins Drug allergy (disorder) [facility] Repository (6 sources) Penicillin; Translations: [PENICILLIN] Drug [...] 12:02am docusate sodium 50 mg / sennosides, skilled nursing 8.6 mg oral tablet (1 source) Start: [...] Interpretation Reference Range Facility Telephoneon 10-01-2023 Telephone [phone] Carlyle David 1945 F Date Provider Department Center 10/01/2023 LIDNSAY [facility] RHEUM UTCF No family history on file Normal [facility] BASIC METABOLIC PANLon 09-26 Anion gap [Moles/Vol] 8 mmol/L Normal 5-15 [facility] Comment on above: Performed By: #### C BCA, CMP, 1988-5, FEPR, 2276-4, 2284-8, 76153-4, 2132-9, 48012-0, 84610-2, 5130-0, 93232-0, 14296-1, 90031-3, 3357-1, 8092-9, 64600-6, 14474-4, 56640-2, 30744-6, 75194-1 #### [facility] ([id number]) [address], [address] [place] [address] Calcium [Mass/Vol] 7.9 mg/dL Low 8.5-10.5 [facility] Comment on above: Performed By: #### C BCA, CMP, 1987-12, FEPR, 2276-4, 2284-8, 03783-8, 2132-9, 83762-8, 57178-1, 5130-0, 58628-0, 39310-8, 79872-9, 3357-1, 8092-9, 53593-6, 26693-7, 39363-3, 88790-0, 44210-0 #### [facility] ([id number]) [address], [address] [place] [address] Chloride [Moles/Vol] 103 mmol/L Normal 98-109 [facility] Comment on above: Performed By: #### C BCA, CMP, 1987-12, FEPR, 2276-4, 2284-8, 69271-2, 2131-9, 69455-5, 76751-9, 5130-0, 42735-1, 79073-6, 02766-0, 3357-1, 8092-9, 52972-6, 92310-8, 55240-3, 01201-4, 83550-3 #### [facility] ([id number]) [address], [address] [place] [address] CO2 [Moles/Vol] 30 mmol/L Normal 22-32 [facility] Comment on above: Performed By: #### C BCA, CMP, 1987-12, FEPR, 227-4, 2284-8, 90341-8, 2132-9, 08598-2, 42205-2, 5130-0, 66865-7, 95493-4, 57583-5, 3357-1, 8092-9, 47287-7, 49849-0, 45097-6, 83250-5, 09752-9 #### [facility] ([id number]) [facility], [address] [place] [address] Creatinine [Mass/Vol] 0.65 mg/dL Normal 0.40-1.00 [facility] Comment on above: Result Comment: METH OD TRACEABLE TO IDMS STANDARD Performed By: #### C SHARATH, CMP, 1987-12, FEPR, 2276-4, 2284-8, 09366-5, 2132-9, 86425-1, 64487-9, 5130-0, 30412-0, 31330-1, 95097-9, 3357-1, 8092-9, 83900-4, 49378-7, 03160-8, 20360-1, 67550-2 #### [facility] ([id number]) [address] [place] [address], [address] [place] [address] eGFR (CKD-EPI) NON-RACE DEPENDENT >90 Normal >59 [facility] Comment on above: Result Comment: Reported eGFR is based on the CKD-EPI 2020 equation that does not use a race coefficient. Performed By: #### C BCA, CMP, 1987-12, FEPR, 2276-4, 2284-8, 42661-5, 2132-9, 40042-4, 94553-7, 5130-0, 75222-7, 59429-7, 08201-9, 3357-1, 8092-9, 44887-0, 45635-0, 49304-0, 35773-6, 16314-6 #### [facility] ([id number]) [address] [facility], [address] [place] [address] Glucose [Mass/Vol] 79 mg/dL Normal 65-99 [facility] Comment on above: Performed By: #### C BCA, CMP, 1987-12, FEPR, 2276-4, 2284-8, 86848-5, 2132-9, 83600-3, 97073-7, 5130-0, 65681-9, 36966-6, 20389-7, 3357-1, 8092-9, 91243-4, 28604-9, 71948-2, 98227-8, 90416-1 #### [facility] ([id number]) [address] [facility], [address] [place] [address] Potassium [Moles/Vol] 3.9 mmol/L Normal 3.5-5.0 [facility] Comment on above: Performed By: #### C BCA, CMP, 1987-12, FEPR, 2276-4, 2284-8, 23687-0, 2132-9, 55682-9, 20935-5, 5130-0, 50111-1, 35689-3, 42618-1, 3357-1, 8092-9, 48186-2, 48473-1, 49464-8, 64451-8, 14175-4 #### [facility] ([id number]) [address] [facility], [address] [place] [address] Sodium [Moles/Vol] 141 mmol/L Normal 134-146 [facility] Comment on above: Performed By: #### C BCA, CMP, 1987-12, FEPR, 2276-4, 2284-8, 00724-5, 2132-9, 66101-9, 98586-9, 5130-0, 23277-3, 98219-2, 61133-5, 3357-1, 8092-9, 78197-1, 55052-1, 36420-8, 80958-3, 04750-0 #### [facility] ([id number]) [address] [facility], [address] [place] [address] Urea nitrogen [Mass/Vol] 26 mg/dL Normal 5-27 [facility] Comment on above: Performed By: #### C BCA, CMP, 1988-5, FEPR, 2276-4, 2284-8, 07755-6, 2132-9, 60950-1, 06538-4, 5130-0, 75317-0, 42624-8, 20227-7, 3357-1, 8092-9, 53755-0, 23422-2, 98625-0, 14748-1, 42943-1 #### [facility] ([id number]) [address] [facility], [address] [place] [address] Basic Metabolic Panelon Anion gap [Moles/Vol] 8 mmol/L 5 - 15 mmol/L [facility] Calcium [Mass/Vol] 7.9 mg/dL Low 8.5 - 10. 5 mg/dL [facility] Chloride [Moles/Vol] 103 mmol/L 98 - 10 9 mmol/L [facility] CO2 [Moles/Vol] 30 mmol/L 22 - 32 mmol/L [facility] Creatinine [Mass/Vol] 0.65 mg/dL 0.40 - 1.00 mg/dL [facility] Comment on above: METHOD TRACEABLE TO IDAZ STANDARD eGFR (CKD-EPI)non-race dependent - PINF [facility] Comment on above: Reported eGFR is based on the CKD-EPI 2020 equation that does not use a race coefficient. Glucose [Mass/Vol] 79 mg/dL 65 - 99 mg/dL [facility] Interpretation and review of laboratory results Abnormal [facility] Potassium [Moles/Vol] 3.9 mmol/L 3.5 - 5.0 mmol/L [facility] Sodium [Moles/Vol] 141 mmol/L 134 - 146 mmol/L [facility] Urea nitrogen [Mass/Vol] 26 mg/dL 5 - 27 mg/d L [facility] CBC AND AUTO DIFFon 09-26-19 24 ABSOLUTE BASOPHIL 0.1 X10E9/L Normal 0.0-0.2 [facility] Comment on above: Performed By: #### C BCA, CMP, 1987-12, FEPR, 2276-4, 2284-8, 83202-9, 2132-9, 77051-5, 51439-0, 5130-0, 95331-8, 35498-7, 44161-5, 3357-1, 8092-9, 77142-7, 62154-0, 99616-4, 17329-5, 53430-8 #### [facility] ([id number]) [address] [facility], [address] [place] [address] ABSOLUTE NEUTROPHIL 7.1 X10E9/L High 1.5-6.6 [facility] Comment on above: Performed By: #### C BCA, [facility], 1987-12, FEPR, 2276-4, 2284-8, 61074-7, 2132-9, 45817-1, 97424-2, 5130-0, 80455-1, 25876-1, 38116-2, 3357-1, 8092-9, 67399-6, 36777-9, 35696-4, 19700-1, 53251-9 #### [facility] ([id number]) [address] [facility], [address] [place] [address] Basophils/100 WBC (Bld) 0.8 % Normal P [facility] Comment on above: Performed By: #### C BCA, CMP, 1987-12, FEPR, 227-4, 2284-8, 76800-0, 2132-9, 01164-5, 66894-8, 5130-0, 56842-0, 88510-3, 79835-9, 3357-1, 8092-9, 56934-3, 25251-4, 12357-3, 92468-4, 55528-8 #### [facility] ([id number]) [address] [facility], [address] [place] [address] Eosinophils (Bld) [#/Vol] 0.0 10*3/uL Normal 0.0-0.4 [facility] Comment on above: Performed By: #### C SHARATH, CMP, 1987-12, FEPR, 2276-4, 2284-8, 74694-4, 2132-9, 79684-4, 25952-1, 5130-0, 30891-7, 55959-2, 87087-8, 3357-1, 8092-9, 34789-8, 58619-2, 76263-1, 23948-7, 75675-8 #### [facility] ([id number]) [address] [facility], [address] [place] [address] Eosinophils/100 WBC (Bld) 0.0 % Normal [facility] Comment on above: Performed By: #### C SHARATH, CMP, 1987-12, FEPR, 2275-4, 2284-8, 07209-0, 2132-9, 94977-3, 07007-6, 5130-0, 60628-9, 15820-6, 92904-8, 3357-1, 8092-9, 39049-7, 50989-9, 59990-9, 74254-2, 80975-5 #### [facility] ([id number]) [facility] [facility], [address] [place] [address] Erythrocyte distribution width (RBC) [Ratio] 14.4 % Normal 11.5-15.0 [facility] Comment on above: Performed By: #### C SHARATH, CMP, 1987-12, FEPR, 227-4, 2284-8, 40094-9, 2132-9, 24979-8, 81628-2, 5130-0, 17294-2, 73449-9, 01388-7, 3357-1, 8092-9, 07147-9, 17952-5, 69393-0, 98274-9, 24941-7 #### [facility] ([id number]) [address] [facility], [address] [place] [address] Hematocrit (Bld) [Volume fraction] 24.8 % Low 35-47 [facility] Comment on above: Performed By: #### C SHARATH, CMP, 1987-, FEPR, 2276-4, 2284-8, 34452-3, 2132-9, 81423-5, 80567-9, 5130-0, 78111-5, 50190-6, 98874-2, 3357-1, 8092-9, 46671-5, 14934-2, 89081-9, 15753-8, 82970-6 #### [facility] ([id number]) [address], [address] [place] [address] Hemoglobin (Bld) [Mass/Vol] 8.2 g/dL Low 11.7-15.5 [facility] Comment on above: Performed By: #### C SHARATH, CMP, 1987-12, FEPR, 2275-4, 2284-8, 74499-5, 2132-9, 70610-8, 07113-4, 5130-0, 42965-5, 04561-6, 95230-5, 3357-1, 8092-9, 39830-9, 67534-7, 40594-1, 10952-1, 82000-9 #### [facility] ([id number]) [address], [address] [place] [address] Lymphocytes (Bld) [#/Vol] 2.4 10*3/uL Normal 1.0-3.5 [facility] Comment on above: Performed By: #### C BCA, CMP, 1987-12, FEPR, 227-4, 2284-8, 43267-5, 2132-9, 88751-9, 46569-7, 5130-0, 92376-2, 24748-4, 34690-6, 3357-1, 8092-9, 67034-9, 27934-7, 32458-2, 80478-2, 55985-0 #### [facility] ([id number]) [address], [address] [place] [address] Lymphocytes/100 WBC (Bld) 22.6 % Normal [facility] Comment on above: Performed By: #### C SHARATH, CMP, 1987-12, FEPR, 2276-4, 2284-8, 58865-2, 2132-9, 97087-7, 67807-9, 5130-0, 32852-9, 94417-6, 36781-7, 3357-1, 8092-9, 82776-7, 63839-8, 82506-0, 77524-8, 77553-2 #### [facility] ([id number]) [address], [address] [place] [address] MCH (RBC) [Entitic mass] 28.5 pg Normal 27-34 [facility] Comment on above: Performed By: #### C SHARATH, CMP, 1987-12, FEPR, 227-4, 2284-8, 53625-8, 2132-9, 41730-3, 70219-2, 5130-0, 09019-8, 00321-2, 12667-1, 3357-1, 8092-9, 26068-3, 27095-9, 78630-5, 85573-1, 42142-5 #### [facility] ([id number]) [address], [address] [place] [address] MCHC (RBC) [Mass/Vol] 33.1 g/dL Normal 32-36 [facility] Comment on above: Performed By: #### C BCA, CMP, 1987-12, FEPR, 2276-4, 2284-8, 44558-0, 2132-9, 99004-2, 63884-3, 5130-0, 69277-8, 54473-0, 11204-3, 3357-1, 8092-9, 55914-7, 72853-6, 38052-3, 36730-5, 54059-2 #### [facility] ([id number]) [address], [address] [place] [address] MCV (RBC) [Entitic vol] 86 fL Normal 80-100 P [facility] Comment on above: Performed By: #### C BCA, CMP, 1987-12, FEPR, 2276-4, 2284-8, 23714-3, 2132-9, 47095-2, 81413-0, 5130-0, 08609-5, 61548-8, 28100-4, 3357-1, 8092-9, 79629-6, 34635-1, 69516-6, 14199-6, 62942-1 #### [facility] ([id number]) [address] [facility], [address] [place] [address] Monocytes (Bld) [#/Vol] 1.0 10*3/uL High 0-0.9 [facility] Comment on above: Performed By: #### C BCA, CMP, 1987-12, FEPR, 227-4, 2284-8, 41089-9, 2132-9, 71207-4, 31487-1, 5130-0, 77350-5, 78039-3, 53507-3, 3357-1, 8092-9, 03190-9, 92071-5, 88839-5, 75586-4, 50710-9 #### [facility] ([id number]) [address], [address] [place] [address] Monocytes/100 WBC (Bld) 9.0 % Normal P [facility] Comment on above: Performed By: #### C BCA, CMP, 1987-12, FEPR, 2276-4, 2284-8, 13742-8, 2132-9, 69120-6, 08958-8, 5130-0, 19228-2, 70065-2, 73352-7, 3357-1, 8092-9, 41467-9, 83098-1, 48209-7, 19119-3, 85365-9 #### [facility] ([id number]) [address], [address] [place] [address] Neutrophils/100 WBC (Bld) 67.6 % Normal [facility] Comment on above: Performed By: #### C BCA, CMP, 1987-12, FEPR, 2276-4, 2284-8, 04931-5, 2132-9, 81486-3, 06197-4, 5130-0, 78337-8, 10977-6, 19641-5, 3357-1, 8092-9, 49790-1, 99127-5, 93402-0, 12156-0, 62942-6 #### [facility] ([id number]) [address], [address] [place] [address] Platelet mean volume (Bld) [Entitic vol] 6.4 fL Low 7-12 [facility] Comment on above: Performed By: #### C BCA, CMP, 1987-12, FEPR, 2275-4, 2284-8, 19613-8, 2132-9, 47585-1, 01573-4, 5130-0, 20400-6, 13240-2, 65539-8, 3357-1, 8092-9, 06147-5, 46623-4, 05894-9, 63663-1, 75792-8 #### [facility] ([id number]) [address], [address] [place] [address] Platelets (Bld) [#/Vol] 686 10*3/uL High 150-450 [facility] Comment on above: Performed By: #### C BCA, CMP, 1987-12, FEPR, 2276-4, 2284-8, 21670-5, 2132-9, 25508-5, 08400-9, 5130-0, 57081-3, 47638-6, 73008-8, 3357-1, 8092-9, 07796-8, 89189-8, 96358-9, 82286-1, 98352-0 #### [facility] ([id number]) [address] [facility], [address] [place] [address] RBC COUNT 2.88 X10E12/L Low 3.80-5.20 [facility] Comment on above: Performed By: #### C BCA, CMP, 1987-, FEPR, 2276-4, 2284-8, 54746-1, 2132-9, 67686-3, 02210-1, 5130-0, 39300-5, 55946-5, 62374-1, 3357-1, 8092-9, 41088-8, 52202-6, 35249-8, 51442-3, 38308-5 #### [facility] ([id number]) [address] [facility], [address] [address] WBC (Bld) [#/Vol] 10.5 10*3/uL Normal 4.0-11.0 [facility] Comment on above: Performed By: #### C BCA, CMP, 1987-, FEPR, 2276-4, 2284-8, 04984-8, 2132-9, 96620-1, 37960-0, 5130-0, 48957-1, 31673-9, 03170-7, 3357-1, 8092-9, 83516-8, 22108-8, 56296-8, 17755-8, 89402-3 #### [facility] ([id number]) [address] [facility], [address] [place] [address] CBC auto differentialon 02-0 -2023 Basophils (Bld) [#/Vol] 0.1 10*3/uL [facility] Basophils/100 WBC (Bld) 0.8 % P [facility] Eosinophils (Bld) [#/Vol] 0.0 10*3/uL [facility] Eosinophils/100 WBC (Bld) 0.0 % [facility] Erythrocyte distribution width (RBC) [Ratio] 14.4 % 11.5 - 15.0 % [facility] Hematocrit (Bld) [Volume fraction] 24.8 % Low 35 - 47 % [facility] Hemoglobin (Bld) [Mass/Vol] 8.2 g/dL Low 11.7 - 15.5 g/dL [facility] Interpretation and review of laboratory results Abnormal [facility] Lymphocytes (Bld) [#/Vol] 2.4 10*3/uL [facility] Lymphocytes/100 WBC (Bld) 22.6 % [facility] MCH (RBC) [Entitic mass] 28.5 pg 27 - 34 pg [facility] MCHC (RBC) [Mass/Vol] 33.1 g/dL 32 - 36 g/dL P [facility] MCV (RBC) [Entitic vol] 86 fL 80 - 100 fL [facility] Monocytes (Bld) [#/Vol] 1.0 10*3/uL High [facility] Monocytes/100 WBC (Bld) 9.0 % P [facility] Neutrophils (Bld) [#/Vol] 7.1 10*3/uL High [facility] Neutrophils/100 WBC (Bld) 67.6 % [facility] Platelet mean volume (Bld) [Entitic vol] 6.4 fL Low 7 - 12 fL [facility] Platelets (Bld) [#/Vol] 686 10*3/uL High [facility] RBC (Bld) [#/Vol] 2.88 10*6/uL Low [facility] WBC corrected for nucl RBC Auto (Bld) [#/Vol] 10.5 [facility] Clinical Pathology Blood Sme ar Review Clinicalon 09-26-2023 Pathologist review Pathologist comment (Bld) [Interp] NOTE [facility] Comment on above: [facility] [address] [place] [address] Clinical Pathology Report Patient Name:JOSE DAVID:1945 (Age: 78)Gender:FTaken:4Reported:09/26/2023hysician(s):Olga Pan M.D. ([phone])Copy To: Rec. #:[id number]: #[id number] Final Pathologic Diagnosis Peripheral blood smear: Neutrophilic [...] Out hn/09/26/2023Og Martinez M.D. Interpretation performed at [facility], [address] [place] [address], License number: [id number]. Clinical History R29.9. BLOOD SMEAR EVALUATION CBC (09/23/2023 0818): WBC = 12.1 X10E9/L; HGB = 9.1 g/dL; HCT = 27.8%; MCV = 85 fL; PLT = 924 X10E9/L OTHER LAB DATA: Noncontributory. BLOOD SMEAR: Leukocytes: Neutrophilic leukocytosis with cytotoxic changes and lymphocytopenia. Erythrocytes: Moderate normocytic normochromic anemia. Platelets: Thrombocytosis. Specimen(s) Received Blood Smear Review Fee Codes(s): 1; 51994 JAK2 V617F mutationon 2023 JAK2 gene p.[id number] [employer] Ql (Bld/Tiss) SEE COMMENTS 09/26/2023 10:21 AM [employer] Comment on above: NOTE Test Result Flag Unit RefValue ----- JAK2 V617F Mutation Detection, B JAK2 Result see interpretation JAK2 V617F Mutation Detection, B See Note Peripheral blood, JAK2 V617F mutation analysis: Negative for JAK2 V617F. A negative [id number] test result does not exclude the possibility [...] assay has been determined at 0.06% (see [facility] Interpretive Handbook for method details). This test was developed and its performance characteristics determined by [facility] in a manner consistent with CLIA requirements. This test has not been cleared or approved by the U.S. Food and Drug Administration. Test Performed by: [place] [address] Chemical Applicator: Thierry Duran M.D. Ph.D.; CLIA# [id number] JAK2 gene p.[id number] [employer] Ql (Bld/Tiss)on 09-26-2023 [facility] Pathologist review Pathologi st comment (Bld) [Interp]on 09-26-2023 [facility] Surgical Pathologyon 024 [facility] [employer] [facility] [address] [place] [address] Surgical Pathology Consultation Patient Name:JOSE DAVID:1945 (Age: 78)Gender:FTaken:4Reported:09/26/2023 Physician(s):Kristel Reid MD ([phone])Copy To: Rec. #:[id number]: #[id number] Final Pathologic Diagnosis 1. Left temporal artery [...] correlation is suggested. Report Electronically Signed Out [facility]/09/26/2023José Luis Pederson MD Interpretation performed at [facility], [address] [place] [address], License number: [id number]. Clinical History Temporal arteries. Gross Description 1. Received in formalin labeled FRANKIE, left temporal artery biopsy is a segment of vasculature, 2 x 0.3 cm. The specimen is sectioned to reveal a pinpoint lumen. Are 3 segments of vasculature ranging from 0.5 cm to 1.2 cm in length by 0.2 cm in diameter. The specimen is submitted entirely in a single cassette. (1,ns,[id number], m1) . 2. Received in formalin labeled FRANKIE, right temporal artery biopsy are 3 segments of vasculature ranging from 0.5 cm to 1.2 cm in length by 0.2 cm in diameter. The segments are sectioned to reveal pinpoint lumens. The specimen are submitted entirely in cassettes A-B. (2,ns,[id number], m1) . /4RG Specimen(s) Received 1: Left temporal artery biopsy 2: Right temporal artery biopsy Fee Codes(s): 1; 65020, 48228 2; 76235, 72016 [facility] BCR/ABL by PCR w/ Reflexon 0 09-25-2023 Narrative diagnostic report [employer] Yaw (Bld/Tiss) [Interp] SEE COMMENTS 09/25/2023 04:24 PM [facility] Comment on above: NOTE Test Result Flag Unit RefValue ----- BCR/ABL1 Reflex, Qual/Quant Specimen Type EDTA WHOLE BLOOD BCR/ABL1 Reflex Result see interpretation Interpretation See Note Peripheral blood, BCR/ABL1 mRNA analysis, qualitative: Negative. No BCR/ABL1 mRNA transcripts were detected. Method summary: The presence or absence of BCR/ABL1 mRNA transcripts was evaluated using a qualitative, reverse block chopper hand PCR-based assay. The assay detects nearly all published and theoretical BCR/ABL1 fusion forms including the common e13/e14-a2 (p210) and e1-a2 (p190) transcripts, as well as other rarer variants (e.g. e19-a2 (p230), e13/e14-a3, e1-a3, etc.). The limit of detection for this assay is 0.1%. Please contact the lab at [phone] with questions or if additional testing is required. See [employer] Test Catalog for additional method details. Signing Pathologist: Ammon Titus M.D. (Jane), Ph.D. ADDITIONAL INFORMATION This test was developed and its performance characteristics determined by [facility] in a manner consistent with CLIA requirements. This test has not been cleared or approved by the U.S. Food and Drug Administration. Test Performed by: [facility] - [address] [address] Chemical Applicator: Thierry Duran M.D. Ph.D.; CLIA# [id number] Narrative diagnostic report Martha Yaw (Bld/Tiss) [Interp]on 09-25-2023 [facility] Surgical Pathologyon Surgical Pathology Normal [facility] Comment on above: Result Comment: [email or web address] [employer] [facility] [address] [place] [address] Surgical Pathology Consultation ADDENDUM [place] Patient Name:JOSE DAVID:1945 (Age: 78)Gender:FTaken:4Reported:4Physician(s):Kristel Reid MD ([phone])Copy To: Rec. #:[id number]: #[id number] Final Pathologic Diagnosis 1. Left temporal artery [...] Signed Out wak/09/26/2023José Luis Pederson MD Addendum ([facility]) Date Reported: 09/29/2023 In both parts of the specimen, and elastic special stain (with appropriate controls) demonstrates fragmentation and loss of the internal elastic lamina. Electronically Signed Out José Luis Pederson MD Interpretation performed at [facility], [address] [place] [id number], License number: [id number]. Clinical History Temporal arteries. Gross Description 1. Received in formalin labeled FRANKIE, left temporal artery biopsy is a segment of vasculature, 2 x 0.3 cm. The specimen is sectioned to reveal a pinpoint lumen. Are 3 segments of vasculature ranging from 0.5 cm to 1.2 cm in length by 0.2 cm in diameter. The specimen is submitted entirely in a single cassette. (1,ns,[id number], m1) . 2. Received in formalin labeled FRANKIE, right temporal artery biopsy are 3 segments of vasculature ranging from 0.5 cm to 1.2 cm in length by 0.2 cm in diameter. The segments are sectioned to reveal pinpoint lumens. The specimen are submitted entirely in cassettes A-B. (2,ns,[id number], m1) . 09/25/2023 Specimen(s) Received 1: Left temporal artery biopsy 2: Right temporal artery biopsy Fee Codes(s): 1; 22623, 73697 2; 29564, 61224 dRVVT/dRVVT.excess phospholi pid Coag (PPP) [Ratio]on 09-25-2023 dRVVT excess phospholipid Coag Ql (PPP) Negative [facility] [place] ANCAon 09-24-2023 Neutrophil cytoplasmic Ab IF Ql (S) See Below [facility] Comment on above: NOTE TEST RESULT [...] See below Reviewed by Arun Tucker, Ph.D D([facility]) This test is used as an aid in diagnosis of patients with autoimmune vasculitidies. The final interpretation should be done in conjunction with ANCA test results and clinical correlation. Test Performed By: [facility] [address] [place] [address] [employer] Developer: Meño Hernandez III, M.D. CLIA #[id number]^ BASIC METABOLIC PANLon 09-24 Anion gap [Moles/Vol] 10 mmol/L Normal 5-15 [facility] Comment on above: Performed By: #### C BCA, CMP, 1987-12, FEPR, 2276-4, 2284-8, 47948-0, 2132-9, 94965-3, 59766-6, 5130-0, 67087-6, 12070-1, 51633-9, 3357-1, 8092-9, 54232-5, 94076-9, 82581-0, 91730-9, 95105-5 #### [facility] ([id number]) [address], [address] [place] [address] Calcium [Mass/Vol] 8.5 mg/dL Normal 8.5-10.5 [facility] Comment on above: Performed By: #### C BCA, CMP, 1987-12, FEPR, 227-4, 2284-8, 85249-7, 2132-9, 06901-1, 67775-3, 5130-0, 52890-3, 13788-6, 23293-3, 3357-1, 8092-9, 82063-8, 32728-2, 98189-3, 03701-3, 50117-5 #### [facility] ([id number]) [address], [address] [place] [address] Chloride [Moles/Vol] 101 mmol/L Normal 98-109 [facility] Comment on above: Performed By: #### C BCA, CMP, 1987-12, FEPR, 2276-4, 2284-8, 13892-4, 2132-9, 60027-1, 08476-9, 5130-0, 23014-3, 58705-5, 12166-3, 3357-1, 8092-9, 53709-2, 83175-8, 40299-6, 97710-3, 22975-9 #### [facility] ([id number]) [address], [address] [address] CO2 [Moles/Vol] 29 mmol/L Normal 22-32 [facility] Comment on above: Performed By: #### C BCA, CMP, 1987-12, FEPR, 2275-4, 2283-8, 38651-6, 2131-9, 34279-1, 48822-4, 5130-0, 10371-3, 16974-9, 60260-4, 3357-1, 8092-9, 39982-1, 07755-9, 70452-3, 58833-0, 92056-6 #### [facility] ([id number]) [address], [address] [address] Creatinine [Mass/Vol] 0.61 mg/dL Normal 0.40-1.00 [facility] Comment on above: Result Comment: METH OD TRACEABLE TO IDMS STANDARD Performed By: #### C BCA, CMP, 1987-12, FEPR, 2275-, 2283-8, 20352-4, 2131-9, 37987-1, 63237-1, 5130-0, 30866-1, 79158-1, 95136-0, 3357-1, 8092-9, 08961-4, 50592-8, 80238-0, 97935-8, 18150-6 #### [facility] ([id number]) [address], [facility] [address] [place] [address] eGFR (CKD-EPI) NON-RACE DEPENDENT >90 Normal >59 [facility] Comment on above: Result Comment: Reported eGFR is based on the CKD-EPI 2020 equation that does not use a race coefficient. Performed By: #### C BCA, CMP, 1987-12, FEPR, 2275-, 2283-8, 47559-5, 2132-9, 92128-4, 77219-9, 5130-0, 62462-2, 22959-8, 04868-4, 3357-1, 8092-9, 39709-0, 88295-8, 16841-6, 33721-7, 16883-3 #### [facility] ([id number]) [address], [address] [place] [address] Glucose [Mass/Vol] 98 mg/dL Normal 65-99 [facility] Comment on above: Performed By: #### C BCA, CMP, 1987-12, FEPR, 227-4, 2284-8, 55924-8, 2131-9, 80434-9, 06406-7, 5130-0, 84226-8, 83342-3, 73997-3, 3357-1, 8092-9, 22282-1, 86781-5, 73843-5, 58327-4, 14897-4 #### [facility] ([id number]) [address], [address] [place] [address] Potassium [Moles/Vol] 3.5 mmol/L Normal 3.5-5.0 [facility] Comment on above: Performed By: #### C BCA, CMP, 1987-12, FEPR, 2275-4, 4-8, 88332-2, 2131-9, 24911-8, 94527-0, 5130-0, 30234-9, 91539-7, 72127-6, 3357-1, 8092-9, 99499-0, 13830-1, 35171-2, 41531-6, 05577-9 #### [facility] ([id number]) [address], [address] [place] [address] Sodium [Moles/Vol] 140 mmol/L Normal 134-146 [facility] Comment on above: Performed By: #### C BCA, CMP, 1987-12, FEPR, 2275-4, 2283-8, 86828-6, 2132-9, 74078-5, 62423-4, 5130-0, 88593-1, 43224-5, 98805-6, 3357-1, 8092-9, 25018-0, 23009-8, 93949-8, 67044-7, 40407-7 #### [facility] ([id number]) [address], [address] [place] [address] Urea nitrogen [Mass/Vol] 22 mg/dL Normal 5-27 [facility] Comment on above: Performed By: #### C BCA, CMP, 1988-5, FEPR, 2276-4, 2284-8, 17878-3, 2132-9, 66103-3, 20111-9, 5130-0, 26691-7, 78772-7, 76675-9, 3357-1, 8092-9, 04846-0, 90862-5, 98479-9, 93899-9, 05639-3 #### [facility] ([id number]) [address] [place] [address], [address] [place] [address] Basic Metabolic Panelon -3 Anion gap [Moles/Vol] 10 mmol/L 5 - 15 mmol/L [facility] Calcium [Mass/Vol] 8.5 mg/dL 8.5 - 10. 5 mg/dL [facility] Chloride [Moles/Vol] 101 mmol/L 98 - 10 9 mmol/L [facility] CO2 [Moles/Vol] 29 mmol/L 22 - 32 mmol/L [facility] Creatinine [Mass/Vol] 0.61 mg/dL 0.40 - 1.00 mg/dL [facility] Comment on above: METHOD TRACEABLE TO IDMS STANDARD eGFR (CKD-EPI)non-race dependent - PINF [facility] Comment on above: Reported eGFR is based on the CKD-EPI 2020 equation that does not use a race coefficient. Glucose [Mass/Vol] 98 mg/dL 65 - 99 mg/dL [facility] Potassium [Moles/Vol] 3.5 mmol/L 3.5 - 5.0 mmol/L [facility] Sodium [Moles/Vol] 140 mmol/L 134 - 146 mmol/L [facility] Urea nitrogen [Mass/Vol] 22 mg/dL 5 - 27 mg/d L [facility] CBC AND AUTO DIFFon 09-24-19 24 ABSOLUTE BASOPHIL 0.1 X10E9/L Normal 0.0-0.2 [facility] Comment on above: Performed By: #### C BCA, CMP, 1987-12, FEPR, 2275-4, 2283-8, 87471-3, 2132-9, 22411-9, 39853-3, 5130-0, 01319-3, 26765-3, 89556-0, 3357-1, 8092-9, 40325-9, 16214-1, 62224-7, 27492-3, 62936-6 #### [facility] ([id number]) [address], [address] [place] [address] ABSOLUTE NEUTROPHIL 16.3 X10E9/L High 1.5-6.6 [facility] Comment on above: Performed By: #### C SHARATH, CMP, 1987-12, FEPR, 2275-, 2283-8, 54696-3, 2-9, 74438-0, 64611-7, 5130-0, 67119-7, 74255-1, 43303-3, 3357-1, 8092-9, 11687-2, 54172-5, 04984-4, 93995-7, 34803-9 #### [facility] ([id number]) [address], [address] [place] [address] Basophils/100 WBC (Bld) 0.5 % Normal [facility] Comment on above: Performed By: #### C BCA, CMP, 1987-12, FEPR, 2275-4, 2284-8, 30814-2, 2132-9, 31465-1, 54378-9, 5130-0, 62211-4, 47746-8, 88593-9, 3357-1, 8092-9, 63203-7, 50549-6, 64965-3, 55790-8, 55525-2 #### [facility] ([id number]) [address], [address] [place] [address] Eosinophils (Bld) [#/Vol] 0.0 10*3/uL Normal 0.0-0.4 [facility] Comment on above: Performed By: #### C BCA, CMP, 1987-12, FEPR, 2276-4, 2284-8, 94132-5, 2132-9, 34519-9, 38736-4, 5130-0, 75003-2, 98601-4, 20968-2, 3357-1, 8092-9, 07122-2, 83703-1, 16484-0, 97217-6, 20359-6 #### [facility] ([id number]) [address] [place] [address], [address] [address] Eosinophils/100 WBC (Bld) 0.0 % Normal [facility] Comment on above: Performed By: #### C SHARATH, CMP, 1987-12, FEPR, 6-4, 2284-8, 53572-1, 2132-9, 73626-9, 91033-1, 5130-0, 62454-2, 25687-3, 81550-5, 3357-1, 8092-9, 10168-8, 18005-0, 85942-9, 93824-2, 00055-7 #### [facility] ([id number]) [address] [place] [address], [address] [place] [address] Erythrocyte distribution width (RBC) [Ratio] 14.8 % Normal 11.5-15.0 [facility] Comment on above: Performed By: #### C BCA, CMP, 1987-12, FEPR, 227-4, 2284-8, 06398-9, 2132-9, 91103-4, 83934-5, 5130-0, 70919-7, 26440-2, 92420-2, 3357-1, 8092-9, 23266-4, 70070-8, 35579-4, 73054-2, 09489-7 #### [facility] ([id number]) [address], [address] [place] [address] Hematocrit (Bld) [Volume fraction] 25.6 % Low 35-47 [facility] Comment on above: Performed By: #### C SHARATH, CMP, 1987-12, FEPR, 6-4, 2284-8, 62579-6, 2132-9, 78028-1, 90397-3, 5130-0, 92838-6, 07309-4, 00817-2, 3357-1, 8092-9, 55794-4, 47001-6, 46753-8, 91444-1, 62777-8 #### [facility] ([id number]) [address], [address] [place] [address] Hemoglobin (Bld) [Mass/Vol] 8.3 g/dL Low 11.7-15.5 [facility] Comment on above: Performed By: #### C SHARATH, CMP, 1987-12, FEPR, 2275-4, 4-8, 54980-9, 2132-9, 39965-8, 42573-0, 5130-0, 12803-5, 01273-1, 61146-0, 3357-1, 8092-9, 38734-8, 93368-2, 37206-6, 83016-1, 60710-2 #### [facility] ([id number]) [address], [address] [place] [address] Lymphocytes (Bld) [#/Vol] 1.6 10*3/uL Normal 1.0-3.5 [facility] Comment on above: Performed By: #### C SHARATH, CMP, 1987-12, FEPR, 2276-4, 2284-8, 37302-1, 2132-9, 91002-9, 55697-6, 5130-0, 77965-2, 97583-0, 94081-2, 3357-1, 8092-9, 66643-9, 98385-8, 20384-0, 47269-6, 91898-5 #### [facility] ([id number]) [address], [address] [place] [address] Lymphocytes/100 WBC (Bld) 8.3 % Normal [facility] Comment on above: Performed By: #### C BCA, CMP, 1987-12, FEPR, 2275-4, 2284-8, 96352-9, 2132-9, 33951-2, 26203-2, 5130-0, 52168-1, 89922-0, 66889-6, 3357-1, 8092-9, 42895-3, 20164-6, 57056-4, 53195-5, 97975-2 #### [facility] ([id number]) [address], [address] [place] [address] MCH (RBC) [Entitic mass] 27.8 pg Normal 27-34 [facility] Comment on above: Performed By: #### C BCA, CMP, 1987-12, FEPR, 2275-4, 2284-8, 35849-3, 2132-9, 91934-4, 83694-8, 5130-0, 15062-5, 89800-1, 06414-6, 3357-1, 8092-9, 81286-2, 19326-5, 10526-7, 15594-5, 80323-1 #### [facility] ([id number]) [address], [address] [place] [address] MCHC (RBC) [Mass/Vol] 32.5 g/dL Normal 32-36 [facility] Comment on above: Performed By: #### C BCA, CMP, 1987-12, FEPR, 2276-4, 2284-8, 39256-8, 2132-9, 14035-5, 03059-6, 5130-0, 18303-9, 39151-6, 11337-2, 3357-1, 8092-9, 99276-7, 59776-4, 71781-4, 97605-8, 73490-2 #### [facility] ([id number]) [address], [address] [place] [address] MCV (RBC) [Entitic vol] 85 fL Normal 80-100 P [facility] Comment on above: Performed By: #### C SHARATH, CMP, 1987-12, FEPR, 2275-4, 2284-8, 48827-7, 2132-9, 46540-2, 81992-1, 5130-0, 31842-2, 95947-0, 32016-2, 3357-1, 8092-9, 02517-2, 84231-0, 12218-6, 35412-2, 61764-7 #### [facility] ([id number]) [address], [address] [place] [address] Monocytes (Bld) [#/Vol] 1.0 10*3/uL High 0-0.9 [facility] Comment on above: Performed By: #### C SHARATH, CMP, 1987-12, FEPR, 2275-4, 228-8, 43887-3, 2132-9, 58509-6, 69436-5, 5130-0, 89133-3, 37320-9, 85732-1, 3357-1, 8092-9, 55806-1, 40784-3, 84603-7, 23661-3, 75374-2 #### [facility] ([id number]) [address], [address] [place] [address] Monocytes/100 WBC (Bld) 5.0 % Normal [facility] Comment on above: Performed By: #### C BCA, CMP, 1987-12, FEPR, 2276-4, 2284-8, 45815-2, 2132-9, 83681-9, 49721-8, 5130-0, 69313-2, 36697-7, 36494-8, 3357-1, 8092-9, 83915-7, 34929-4, 99498-7, 78194-3, 35599-9 #### [facility] ([id number]) [address], [address] [place] [address] Neutrophils/100 WBC (Bld) 86.2 % Normal [facility] Comment on above: Performed By: #### C SHARATH, CMP, 1987-12, FEPR, 2275-4, 2284-8, 34245-2, 2132-9, 18382-5, 72490-7, 5130-0, 26660-1, 03769-4, 86207-8, 3357-1, 8092-9, 47829-0, 45637-3, 27494-0, 54530-1, 94069-0 #### [facility] ([id number]) [address] [place] [address], [address] [place] [address] Platelet mean volume (Bld) [Entitic vol] 6.5 fL Low 7-12 [facility] Comment on above: Performed By: #### C SHARATH, CMP, 1987-12, FEPR, 2276-4, 2284-8, 18459-2, 2132-9, 47867-2, 00428-1, 5130-0, 76744-2, 05840-2, 88021-0, 3357-1, 8092-9, 22886-4, 23339-1, 60565-2, 49886-7, 19425-5 #### [facility] ([id number]) [facility], [address] [place] [address] Platelets (Bld) [#/Vol] 902 10*3/uL High 150-450 [facility] Comment on above: Performed By: #### C BCA, CMP, 1987-12, FEPR, 2276-4, 2284-8, 14993-2, 2132-9, 15822-3, 26142-1, 5130-0, 22274-7, 53978-8, 37779-5, 3357-1, 8092-9, 36529-5, 87987-2, 73916-5, 59186-8, 32205-5 #### [facility] ([id number]) [address] [place] [address], [address] [place] [address] RBC COUNT 3.00 X10E12/L Low 3.80-5.20 [facility] Comment on above: Performed By: #### C BCA, CMP, 1987-12, FEPR, 2276-4, 2284-8, 41654-8, 2132-9, 78067-7, 59511-1, 5130-0, 32134-7, 29210-1, 11389-6, 3357-1, 8092-9, 83351-6, 05812-9, 54778-0, 35927-2, 09981-6 #### [facility] ([id number]) [address] [place] [address], [address] [address] WBC (Bld) [#/Vol] 18.9 10*3/uL High 4.0-11.0 [facility] Comment on above: Performed By: #### C BCA, CMP, 1987-12, FEPR, 2276-4, 2284-8, 11918-6, 2132-9, 24160-8, 50385-8, 5130-0, 86999-5, 92653-2, 26788-0, 3357-1, 8092-9, 08279-4, 90188-4, 18035-4, 89480-1, 82245-8 #### [facility] ([id number]) [address] [place] [address], [address] [place] [address] CBC auto differentialon 08-27 Basophils (Bld) [#/Vol] 0.1 10*3/uL [facility] Basophils/100 WBC (Bld) 0.5 % P [facility] Eosinophils (Bld) [#/Vol] 0.0 10*3/uL [facility] Eosinophils/100 WBC (Bld) 0.0 % [facility] Erythrocyte distribution width (RBC) [Ratio] 14.8 % 11.5 - 15.0 % [facility] Hematocrit (Bld) [Volume fraction] 25.6 % Low 35 - 47 % [facility] Hemoglobin (Bld) [Mass/Vol] 8.3 g/dL Low 11.7 - 15.5 g/dL [facility] Interpretation and review of laboratory results Abnormal [facility] Lymphocytes (Bld) [#/Vol] 1.6 10*3/uL [facility] Lymphocytes/100 WBC (Bld) 8.3 % [facility] MCH (RBC) [Entitic mass] 27.8 pg 27 - 34 pg [facility] MCHC (RBC) [Mass/Vol] 32.5 g/dL 32 - 36 g/dL [facility] MCV (RBC) [Entitic vol] 85 fL 80 - 100 fL [facility] Monocytes (Bld) [#/Vol] 1.0 10*3/uL High [facility] Monocytes/100 WBC (Bld) 5.0 % [facility] Neutrophils (Bld) [#/Vol] 16.3 10*3/uL High [facility] Neutrophils/100 WBC (Bld) 86.2 % [facility] Platelet mean volume (Bld) [Entitic vol] 6.5 fL Low 7 - 12 fL [facility] Platelets (Bld) [#/Vol] 902 10*3/uL High [facility] RBC (Bld) [#/Vol] 3.00 10*6/uL Low [facility] WBC corrected for nucl RBC Auto (Bld) [#/Vol] 18.9 High [facility] Cardiac echo study Procedure Ordered By: Nacho Grant on 09-24-2023 Aortic root 2.80 cm [facility] Work Phone: AV mean gradient 6.00 mmHg [employer] Work Phone: [phone] AV peak gradient 8.64 mmHg [employer] Work Phone: [phone] AV peak kym 147.00 cm/s [employer] Work Phone: 1 0 AV valve area 1.95 cm2 [employer] Work Phone: [phone] AV Velocity Ratio 0.77 [employer] Work Phone: [phone] AV VTI 33.60 cm [employer] Work Phone: [phone] E wave deceleration time 187.00 msec [employer] Work Phone: [phone] E/A ratio 0.72 [employer] Work Phone: [phone] Echo EF Estimated 63 % [employer] Work Phone: [phone] EF 63 % [employer] Work Phone: [phone] Energy loss index 1.88 [employer] Work Phone: [phone] FS 33 % 28 - 44 % [employer] Work Phone: Interventricular Septum Diastolic Thickness by 2D 10 cm [employer] Work Phone: [phone] IVS 1.00 cm 0.6 - 1.1 cm [employer] Work Phone: [phone] LA size 3.60 cm [employer] Work Phone: [phone] LA volume 48.00 cm3 [employer] Work Phone: [phone] LA Volume Index 31.8 mL/m2 [employer] Work Phone: Left Ventricle Mass 122.824615777125822 g [employer] Work Phone: LV Diastolic Volume 71.20 mL [employer] Work Phone: LV ESV A2C 56.30 mL [employer] Work Phone: [phone] LV ESV A4C 33.20 mL [employer] Work Phone: LV RWT 2D 51.28 [employer] Work Phone: LV Systolic Volume 26.00 mL [employer] Work Phone: LVIDd 3.90 cm 3.78 - 5.25 cm [employer] Work Phone: LVIDs 2.60 cm 2.25 - 3.40 cm [employer] Work Phone: LVOT diameter 1.80 cm [employer] Work Phone: LVOT peak kym 1.37 m/s [employer] Work Phone: LVOT peak VTI 25.80 cm [employer] Work Phone: LVOT stroke volume 65.65 ml [employer] Work Phone: MV Peak A Kym 99.40 cm/s [employer] Work Phone: MV Peak E Kym 71.30 cm/s [employer] Work Phone: MV pressure 1/2 time 55.00 ms [employer] Work Phone: MV TDI E' (medial) 6.85 cm/s [employer] Work Phone: MV valve area p 1/2 method 4.00 cm2 [employer] Work Phone: PV peak gradient 4.16 mmHg [employer] Work Phone: PW 1.00 cm 0.6 - 1.1 cm [employer] Work Phone: RV diastolic dimension (basal) 29.0 mm [employer] Work Phone: TAPSE 1.88 cm [employer] Work Phone: TDI 9.68 cm/s [employer] Work Phone: Valve area - Index 1.3 [employer] Work Phone: ZLVIDD -1.32 [employer] Work Phone: ZLVIDS -0.48 [employer] Work Phone: [employer] Work Phone: Cardiac echo study Procedure on [...] for comparison. [facility] Radiology Study observation (narrative) [facility] MR BRAIN W WO CONTon 024 MR [...] of the major arterial structures in the [place]. The paranasal sinuses are clear. [...] Jewell MD on 09/24/2023 4:24 AM Normal [facility] MR Brain WO and W contrast I [...] of the major arterial structures in the [place]. The paranasal sinuses are clear. [...] of the major arterial structures in the [place]. The paranasal sinuses are clear. [...] Gilbert Jewell MD on 09/24/2023 4:24 AM [facility] Radiology Study observation (narrative) [facility] MR ORBIT W WO CONTon 024 MR [...] of the major arterial structures in the [place]. The paranasal sinuses are clear. [...] Jewell MD on 09/24/2023 4:25 AM Normal [facility] MR Orbit WO and W contrast I [...] of the major arterial structures in the [place]. The paranasal sinuses are clear. [...] of the major arterial structures in the [place]. The paranasal sinuses are clear. [...] Gilbert Jewell MD on 09/24/2023 4:25 AM [facility] Radiology Study observation (narrative) [facility] MR Orbit WO and W contrast I VOrdered By: Gilbert Jewell on 09-24-2023 [facility] Work Phone: Neutrophil cytoplasmic Ab IF Ql (S)on 09-24-2023 [facility] Reticulocyteson 09-24-2023 Reticulocytes/100 RBC (Bld) 2.3 % High 0.4 - 2.2 % [facility] Reticulocytes/100 RBC (Bld)o n 09-24-2023 Interpretation and review of laboratory results Abnormal [facility] RETICULOCYTE COUNT 2.3 % High 0.4-2.2 [facility] Comment on above: Performed By: #### C BCA, CMP, 1988-, FEPR, 2276-4, 2284-8, 95993-0, 2132-9, 01314-5, 16666-3, 5130-0, 53026-6, 70121-7, 92624-2, 3357-1, 8092-9, 74862-8, 08118-9, 94154-1, 31349-6, 01542-3 #### [facility] ([id number]) [address], [address] [place] [address] ACUTE HEPATITIS PANELon 08-27 ANTI HCV W/PCR REFLX Non-Reactive Normal NRCT Pr [facility] Comment on above: Result Comment: If recent infection suspected, recommend repeat testing (>2 months). Frwvat-vi-lekdae ratio is <0.80. Performed By: #### C SHARATH, CMP, 1987-12, FEPR, 2276-4, 2284-8, 25112-0, 2132-9, 00826-2, 00718-6, 5130-0, 44356-3, 46123-3, 83505-1, 3357-1, 8092-9, 46614-5, 11147-1, 66715-9, 42630-4, 42027-0 #### [facility] ([id number]) [address], [address] [place] [address] HEPATITIS A IGM Non-Reactive Normal NRCT [facility] Comment on above: Performed By: #### C SHARATH, CMP, 1987-12, FEPR, 227-4, 2284-8, 53789-6, 2132-9, 40884-6, 03697-2, 5130-0, 47467-0, 66722-7, 18670-8, 3357-1, 8092-9, 42921-5, 13834-9, 18587-4, 31342-5, 84391-7 #### [facility] ([id number]) [facility], [address] [place] [address] HEPATITIS B CORE IGM Negative Normal NEG [facility] Comment on above: Performed By: #### C BCA, CMP, 1987-12, FEPR, 2276-4, 2284-8, 16682-0, 2132-9, 19121-8, 78973-2, 5130-0, 37911-1, 38211-9, 31512-4, 3357-1, 8092-9, 57093-0, 77139-8, 22243-8, 61977-2, 30216-1 #### [facility] ([id number]) [address] [place] [address], [address] [place] [address] HEPATITIS B SURF AG Negative Normal NEG [facility] Comment on above: Performed By: #### C KELVIN EARLY, 1986-12, FEPR, 6-4, 4-8, 49373-4, 2131-9, 14923-0, 36098-9, 5130-0, 94275-1, 95466-0, 04128-6, 3357-1, 8092-9, 14138-6, 68171-3, 84779-4, 31948-2, 05744-9 #### [facility] ([id number]) [address] [place] [address], [address] [place] [id number] SILVIA Screen w/ Reflexon 09-23 Nuclear Ab IA Ql (S) Positive Abnormal Negativ e^Neg ative [facility] Comment on above: Testing performed using multiplex flow immunoassay. Eleven different antigens associated with systemic autoimmune diseases (dsDNA,Sm,Sm/[employer]NER,Chromatin, SSA,SSB,Tiki-1,Scl70,Ribo P,Centromere B) are included in this screening test. ANTI CARDIOLIPIN AB IGG IGA IGMon 09-23-2023 MIRIAM IgA <2.0 Normal 0-19.9 [facility] Comment on above: Performed By: #### C KELVIN EARLY, 1986-12, FEPR, 2275-4, 4-8, 47072-8, 2131-9, 46647-5, 92928-5, 5130-0, 51544-7, 13153-2, 80836-9, 3357-1, 8092-9, 77399-8, 77076-8, 80096-1, 79163-4, 40018-2 #### [facility] ([id number]) [address] [place] [address], [address] [place] [address] MIRIAM IgG <1.6 Normal 0-19.9 [facility] Comment on above: Performed By: #### C KELVIN EARLY, 1986-12, FEPR, 2275-4, 2283-8, 01351-5, 2132-9, 90992-5, 37355-8, 5130-0, 78223-4, 90825-0, 58353-8, 3357-1, 8092-9, 90250-3, 59989-3, 00301-5, 07873-0, 41844-5 #### [facility] ([id number]) [address] [place] [address], [address] [place] [address] MIRIAM IgM <1.5 Normal 0-19.9 [facility] Comment on above: Performed By: #### C SHARATH, CMP, 1987-12, FEPR, 2276-4, 2284-8, 07891-7, 213-9, 81671-8, 04660-4, 5130-0, 04333-4, 21900-0, 52924-9, 3357-1, 8092-9, 33564-2, 05952-3, 29222-2, 91796-9, 79974-7 #### [facility] ([id number]) [address] [place] [address], [address] [place] [id number] Anileridine Ql (U)on 024 JO1 ANTIBODY <0.2 Normal <1.0 [facility] Comment on above: Performed By: #### C BCA, CMP, 1987-12, FEPR, 2276-4, 2284-8, 04148-9, 2132-9, 95760-0, 84377-0, 5130-0, 78089-3, 99176-4, 13602-8, 3357-1, 8092-9, 75798-2, 22612-6, 98316-5, 66998-7, 30495-2 #### [facility] ([id number]) [address] [place] [address], [address] [place] [address] Anti cardiolipin AB IgG IgA IgMon 09-23-2023 Cardiolipin IgA IA Qn (S) [facility] Cardiolipin IgG IA Qn (S) [facility] Cardiolipin IgM IA Qn (S) [facility] Anti-Chromatin IGGon 024 Chromatin Ab Ql 0.4 [facility] Comment on above: CLIA ID [id number] Anti-DNA antibody, double-st randedon 09-23-2023 DNA double strand Ab Qn (S) 1 [IU]/mL [facility] Comment on above: Interpretation-------- <5 Negative 5-9 Indeterminate >9 Positive CLIA ID [id number] Anti-Ribosomal P AB IGGon Ribosomal P IgG Qn (S) [facility] Comment on above: CLIA ID [id number] Anti-Mejia AB IGGon 09-23-19 24 Mejia extractable nuclear IgG Qn (S) [facility] Comment on above: CLIA ID [id number] BETA-2 GP1 AB PANELon 2023 BETA-2 GP1 IgA <2.0 Normal 0.0-19.9 [facility] Comment on above: Performed By: #### C KELVIN EARLY, 1986-12, FEPR, 2275-4, 4-8, 23250-4, 2131-9, 67878-0, 15650-4, 5130-0, 14632-0, 01785-0, 61589-2, 3357-1, 8092-9, 04217-1, 96470-0, 64113-4, 04033-3, 48594-4 #### [facility] ([id number]) [address] [facility], [address] [place] [address] BETA-2 GP1 IgG <1.4 Normal 0.0-19.9 [facility] Comment on above: Performed By: #### C KELVIN EARLY, 1987-12, FEPR, 2275-4, 2283-8, 26098-0, 2132-9, 45909-4, 95958-5, 5130-0, 48590-8, 97102-5, 71732-2, 3357-1, 8092-9, 35353-5, 49344-0, 25425-8, 89315-5, 66486-1 #### [facility] ([id number]) [address] [facility], [address] [place] [address] BETA-2 GP1 IgM 4.1 u/mL Normal 0.0-19.9 [facility] Comment on above: Performed By: #### C BCA, CMP, 1987-12, FEPR, 2276-4, 2284-8, 60967-5, 9, 51077-4, 13871-8, 5130-0, 08324-5, 11031-2, 07048-5, 3357-1, 8092-9, 20481-5, 46796-8, 91107-6, 09998-1, 32054-9 #### [facility] ([id number]) [address] [place] [address], [address] [place] [address] Beta-2 glycoprotein antibodi eson 09-23-2023 Beta 2 glycoprotein 1 IgA IA Qn u/mL 0.0 - 19.9 u/mL [facility] Beta 2 glycoprotein 1 IgG IA Qn u/mL 0.0 - 19.9 u/mL [facility] Beta 2 glycoprotein 1 IgM IA Qn 4.1 u/mL 0.0 - 19.9 u/mL [facility] C-reactive proteinon 024 CRP [Mass/Vol] 13.3 mg/dL High 0.000 - 0.744 mg/dL [facility] CBC AND AUTO DIFFon 09-23-19 24 ABSOLUTE BASOPHIL 0.0 X10E9/L Normal 0.0-0.2 [facility] Comment on above: Performed By: #### C BCA, CMP, 1987-12, FEPR, 2276-4, 2284-8, 51440-4, 9, 87780-9, 29757-9, 5130-0, 65403-0, 57442-9, 82565-7, 3357-1, 8092-9, 37639-1, 18266-3, 21538-1, 02704-8, 83042-7 #### [facility] ([id number]) [address], [address] [place] [address] ABSOLUTE NEUTROPHIL 11.5 X10E9/L High 1.5-6.6 [facility] Comment on above: Performed By: #### C BCA, CMP, 1987-12, FEPR, 2276-4, 2284-8, 19776-6, 2132-9, 52579-9, 56765-1, 5130-0, 68408-9, 00473-7, 48482-3, 3357-1, 8092-9, 62574-6, 58937-4, 51459-3, 62923-4, 77103-4 #### [facility] ([id number]) [address], [address] [place] [address] Basophils/100 WBC (Bld) 0.2 % Normal P [facility] Comment on above: Performed By: #### C BCA, CMP, 1987-12, FEPR, 2275-4, 2284-8, 69883-1, 2132-9, 81998-2, 93298-7, 5130-0, 17641-9, 52290-0, 54082-4, 3357-1, 8092-9, 74145-7, 98837-6, 67703-6, 46280-2, 46693-9 #### [facility] ([id number]) [address], [address] [place] [address] Eosinophils (Bld) [#/Vol] 0.0 10*3/uL Normal 0.0-0.4 [facility] Comment on above: Performed By: #### C BCA, CMP, 1987-12, FEPR, 227-4, 2284-8, 95889-6, 2132-9, 68508-2, 82167-9, 5130-0, 64329-2, 11515-3, 08457-2, 3357-1, 8092-9, 04936-5, 34106-6, 57761-5, 37759-6, 32510-3 #### [facility] ([id number]) [address] [facility], [address] [place] [address] Eosinophils/100 WBC (Bld) 0.0 % Normal [facility] Comment on above: Performed By: #### C BCA, CMP, 1987-12, FEPR, 2275-4, 2284-8, 08346-9, 2132-9, 97115-9, 79676-2, 5130-0, 68165-0, 01418-2, 99102-6, 3357-1, 8092-9, 41589-1, 82652-1, 33563-1, 64608-5, 30496-1 #### [facility] ([id number]) [facility] [facility], [address] [place] [address] Erythrocyte distribution width (RBC) [Ratio] 14.4 % Normal 11.5-15.0 [facility] Comment on above: Performed By: #### C BCA, CMP, 1987-12, FEPR, 2275-4, 4-8, 73771-0, 2132-9, 39352-4, 01629-2, 5130-0, 68285-1, 43434-2, 34274-2, 3357-1, 8092-9, 21703-4, 69994-1, 17258-7, 17295-6, 10093-9 #### [facility] ([id number]) [facility], [address] [place] [address] Hematocrit (Bld) [Volume fraction] 27.8 % Low 35-47 [facility] Comment on above: Performed By: #### C BCA, CMP, 1987-12, FEPR, 2276-4, 2284-8, 26827-7, 2132-9, 42571-4, 02437-1, 5130-0, 38637-5, 28575-1, 36150-4, 3357-1, 8092-9, 24409-3, 83913-0, 20621-0, 02711-2, 64201-3 #### [facility] ([id number]) [address] [facility], [address] [place] [address] Hemoglobin (Bld) [Mass/Vol] 9.1 g/dL Low 11.7-15.5 [facility] Comment on above: Performed By: #### C SHARATH, CMP, 1987-12, FEPR, 2275-4, 2284-8, 62656-3, 2132-9, 81053-8, 61758-1, 5130-0, 04291-2, 13146-3, 97980-8, 3357-1, 8092-9, 53083-5, 98676-1, 56630-2, 52131-4, 35713-0 #### [facility] ([id number]) [address] [facility], [address] [place] [address] Lymphocytes (Bld) [#/Vol] 0.4 10*3/uL Low 1.0-3.5 [facility] Comment on above: Performed By: #### C SHARATH, CMP, 1987-12, FEPR, 2275-4, 2284-8, 11553-4, 2132-9, 55903-8, 30401-6, 5130-0, 51161-2, 69909-4, 17313-1, 3357-1, 8092-9, 51416-6, 63311-6, 59753-8, 04179-9, 55839-3 #### [facility] ([id number]) [address] [facility], [address] [place] [address] Lymphocytes/100 WBC (Bld) 3.3 % Normal [facility] Comment on above: Performed By: #### C BCA, CMP, 1987-12, FEPR, 2276-4, 2284-8, 40195-9, 2132-9, 58734-2, 96670-0, 5130-0, 73429-2, 53851-5, 84958-3, 3357-1, 8092-9, 93391-6, 50356-7, 62864-9, 12969-3, 84714-3 #### [facility] ([id number]) [address], [address] [place] [address] MCH (RBC) [Entitic mass] 27.8 pg Normal 27-34 [facility] Comment on above: Performed By: #### C SHARATH, CMP, 1987-12, FEPR, 2276-4, 2284-8, 20561-7, 2132-9, 20123-8, 84864-2, 5130-0, 89478-7, 63045-9, 88897-9, 3357-1, 8092-9, 16295-8, 95827-6, 95969-0, 29882-0, 58920-3 #### [facility] ([id number]) [address], [address] [place] [address] MCHC (RBC) [Mass/Vol] 32.7 g/dL Normal 32-36 [facility] Comment on above: Performed By: #### C SHARATH, CMP, 1987-12, FEPR, 2275-4, 2284-8, 22376-2, 2132-9, 22622-1, 68203-1, 5130-0, 06542-1, 22562-3, 63335-4, 3357-1, 8092-9, 12197-4, 11678-1, 32531-0, 77724-9, 01423-7 #### [facility] ([id number]) [address], [address] [place] [address] MCV (RBC) [Entitic vol] 85 fL Normal 80-100 [facility] Comment on above: Performed By: #### C BCA, CMP, 1987-12, FEPR, 2276-4, 2284-8, 42111-4, 2132-9, 09853-9, 02022-3, 5130-0, 43918-2, 80122-9, 38056-9, 3357-1, 8092-9, 78067-7, 39013-1, 43439-5, 51025-2, 58762-9 #### [facility] ([id number]) [address], [address] [place] [address] Monocytes (Bld) [#/Vol] 0.1 10*3/uL Normal 0-0.9 [facility] Comment on above: Performed By: #### C SHARATH, CMP, 1987-12, FEPR, 6-4, 2284-8, 66325-5, 2132-9, 00308-5, 48123-1, 5130-0, 77405-1, 68463-8, 44424-0, 3357-1, 8092-9, 90051-5, 24936-9, 74785-9, 81660-5, 90946-4 #### [facility] ([id number]) [address], [address] [place] [address] Monocytes/100 WBC (Bld) 1.0 % Normal [facility] Comment on above: Performed By: #### C BCA, CMP, 1987-12, FEPR, 2275-4, 2284-8, 43182-8, 2132-9, 73644-5, 76292-4, 5130-0, 43357-5, 95788-2, 62124-6, 3357-1, 8092-9, 06122-3, 81999-6, 41158-1, 63534-2, 62566-6 #### [facility] ([id number]) [address], [address] [place] [address] Neutrophils/100 WBC (Bld) 95.5 % Normal [facility] Comment on above: Performed By: #### C BCA, CMP, 1987-12, FEPR, 2276-4, 2284-8, 94520-2, 2132-9, 59274-0, 18765-8, 5130-0, 88437-6, 76801-1, 34387-4, 3357-1, 8092-9, 30469-0, 00877-9, 68381-2, 38810-8, 97715-6 #### [facility] ([id number]) [address], [address] [place] [address] Platelet mean volume (Bld) [Entitic vol] 6.2 fL Low 7-12 [facility] Comment on above: Performed By: #### C BCA, CMP, 1987-12, FEPR, 2276-4, 2284-8, 95702-1, 2132-9, 27166-1, 62801-7, 5130-0, 56382-8, 01119-8, 87605-7, 3357-1, 8092-9, 06467-1, 78640-1, 87413-7, 65749-7, 22322-6 #### [facility] ([id number]) [address], [address] [place] [address] Platelets (Bld) [#/Vol] 924 10*3/uL High 150-450 [facility] Comment on above: Performed By: #### C BCA, CMP, 1987-12, FEPR, 2276-4, 2284-8, 77135-2, 2132-9, 11350-6, 62384-6, 5130-0, 16839-4, 16443-5, 50802-7, 3357-1, 8092-9, 39080-0, 42771-3, 84863-5, 88972-5, 52295-3 #### [facility] ([id number]) [address], [address] [place] [address] RBC COUNT 3.27 X10E12/L Low 3.80-5.20 [facility] Comment on above: Performed By: #### C BCA, CMP, 1987-12, FEPR, 2276-4, 2284-8, 26411-2, 2132-9, 91109-0, 21666-3, 5130-0, 40094-5, 91642-0, 59035-7, 3357-1, 8092-9, 19236-1, 19915-1, 23396-9, 01347-6, 38858-2 #### [facility] ([id number]) [address], [address] [place] [address] WBC (Bld) [#/Vol] 12.1 10*3/uL High 4.0-11.0 [facility] Comment on above: Performed By: #### C BCA, CMP, 1987-12, FEPR, 2275-4, 2284-8, 76574-6, 2132-9, 73113-2, 83996-2, 5130-0, 36139-1, 98788-8, 57244-5, 3357-1, 8092-9, 61332-8, 38232-6, 74873-5, 32953-1, 31700-7 #### [facility] ([id number]) [address], [address] [place] [address] ABSOLUTE BASOPHIL 0.2 X10E9/L Normal 0.0-0.2 [facility] Comment on above: Performed By: #### C BCA, CMP, 1987-12, FEPR, 2276-4, 2284-8, 39480-0, 2132-9, 24905-0, 58397-1, 5130-0, 09869-2, 74708-4, 37237-2, 3357-1, 8092-9, 16844-5, 00486-9, 66211-9, 77560-6, 33077-3 #### [facility] ([id number]) [address], [address] [place] [address] ABSOLUTE NEUTROPHIL 10.4 X10E9/L High 1.5-6.6 [facility] Comment on above: Performed By: #### C BCA, CMP, 1987-12, FEPR, 2276-4, 2284-8, 01218-6, 2132-9, 31736-7, 64613-1, 5130-0, 04097-7, 91114-0, 86374-2, 3357-1, 8092-9, 48260-8, 84884-9, 33797-7, 75403-0, 28760-4 #### [facility] ([id number]) [address] [facility], [address] [place] [address] Basophils/100 WBC (Bld) 2.1 % Normal [facility] Comment on above: Performed By: #### C BCA, CMP, 1987-12, FEPR, 2275-4, 2283-8, 24159-9, 2132-9, 30574-7, 06818-7, 5130-0, 99198-6, 67072-9, 16843-9, 3357-1, 8092-9, 25354-8, 85603-3, 03594-3, 63741-9, 56683-4 #### [facility] ([id number]) [address] [facility], [address] [place] [address] Eosinophils (Bld) [#/Vol] 0.0 10*3/uL Normal 0.0-0.4 [facility] Comment on above: Performed By: #### C BCA, CMP, 1987-12, FEPR, 2275-4, 2284-8, 90611-8, 2132-9, 98583-2, 31843-0, 5130-0, 74608-8, 67069-1, 29858-5, 3357-1, 8092-9, 04639-6, 01691-5, 74408-8, 94425-7, 99290-2 #### [facility] ([id number]) [address], [address] [place] [address] Eosinophils/100 WBC (Bld) 0.0 % Normal [facility] Comment on above: Performed By: #### C BCA, CMP, 1987-12, FEPR, 2276-4, 2284-8, 42865-6, 2132-9, 56423-8, 22850-1, 5130-0, 10497-8, 18343-9, 65057-5, 3357-1, 8092-9, 80008-2, 33147-5, 48118-9, 65515-0, 50418-1 #### [facility] ([id number]) [address], [address] [place] [address] Erythrocyte distribution width (RBC) [Ratio] 14.6 % Normal 11.5-15.0 [facility] Comment on above: Performed By: #### C BCA, CMP, 1987-12, FEPR, 227-4, 2284-8, 38546-5, 2132-9, 85743-5, 99590-0, 5130-0, 07528-6, 10506-2, 16227-1, 3357-1, 8092-9, 44246-6, 01427-4, 65663-6, 12126-9, 52630-6 #### [facility] ([id number]) [address], [address] [place] [address] Hematocrit (Bld) [Volume fraction] 26.2 % Low 35-47 [facility] Comment on above: Performed By: #### C BCA, CMP, 1987-12, FEPR, 2276-4, 2284-8, 97559-4, 2132-9, 33834-7, 02092-9, 5130-0, 08799-8, 79313-7, 50134-4, 3357-1, 8092-9, 18764-4, 84204-0, 41092-1, 12761-3, 18573-8 #### [facility] ([id number]) [address], [address] [place] [address] Hemoglobin (Bld) [Mass/Vol] 8.6 g/dL Low 11.7-15.5 [facility] Comment on above: Performed By: #### C BCA, CMP, 1987-12, FEPR, 2275-4, 2283-8, 92591-4, 213-9, 00163-7, 98046-1, 5130-0, 36349-8, 01186-0, 86985-1, 3357-1, 8092-9, 76117-4, 14783-9, 24095-7, 08753-4, 85328-5 #### [facility] ([id number]) [address], [address] [place] [address] Lymphocytes (Bld) [#/Vol] 0.4 10*3/uL Low 1.0-3.5 [facility] Comment on above: Performed By: #### C BCA, CMP, 1987-12, FEPR, 2275-, 2283-8, 25975-3, 213-9, 78093-4, 43716-4, 5130-0, 80288-9, 60027-3, 40906-6, 3357-1, 8092-9, 04605-9, 79873-3, 09781-1, 18754-7, 55598-0 #### [facility] ([id number]) [address], [address] [place] [address] Lymphocytes/100 WBC (Bld) 3.6 % Normal [facility] Comment on above: Performed By: #### C BCA, CMP, 1987-12, FEPR, 2275-4, 228-8, 37182-7, 2132-9, 83450-5, 31903-3, 5130-0, 49134-2, 30189-2, 77351-3, 3357-1, 8092-9, 72486-3, 31225-4, 54904-8, 69553-7, 29985-8 #### [facility] ([id number]) [address], [address] [place] [address] MCH (RBC) [Entitic mass] 28.1 pg Normal 27-34 [facility] Comment on above: Performed By: #### C BCA, CMP, 1987-12, FEPR, 227-4, 2284-8, 20252-9, 213-9, 10930-3, 31927-0, 5130-0, 87381-3, 71127-8, 07010-1, 3357-1, 8092-9, 92944-5, 78431-3, 22893-7, 47895-8, 34844-3 #### [facility] ([id number]) [address], [address] [place] [address] MCHC (RBC) [Mass/Vol] 32.9 g/dL Normal 32-36 [facility] Comment on above: Performed By: #### C BCA, CMP, 1987-12, FEPR, 2275-4, 2283-8, 19355-2, 213-9, 51132-6, 35569-3, 5130-0, 15231-9, 05411-9, 94840-2, 3357-1, 8092-9, 44650-1, 62472-4, 43244-4, 34151-2, 73976-7 #### [facility] ([id number]) [address], [address] [place] [address] MCV (RBC) [Entitic vol] 85 fL Normal 80-100 [facility] Comment on above: Performed By: #### C BCA, CMP, 1987-12, FEPR, 2276-4, 2284-8, 44011-2, 2132-9, 71655-5, 50456-1, 5130-0, 11077-5, 15920-5, 88128-4, 3357-1, 8092-9, 43425-0, 74026-7, 52148-1, 54052-1, 62783-9 #### [facility] ([id number]) [address], [address] [place] [address] Monocytes (Bld) [#/Vol] 0.1 10*3/uL Normal 0-0.9 [facility] Comment on above: Performed By: #### C BCA, CMP, 1987-12, FEPR, 2276-4, 2284-8, 11652-0, 2132-9, 83190-2, 23803-4, 5130-0, 54068-2, 44513-8, 38671-2, 3357-1, 8092-9, 69763-1, 06318-2, 13837-5, 87194-6, 84286-4 #### [facility] ([id number]) [address], [address] [place] [address] Monocytes/100 WBC (Bld) 1.0 % Normal [facility] Comment on above: Performed By: #### C BCA, CMP, 1987-12, FEPR, 2275-4, 4-8, 57703-8, 2132-9, 08267-1, 34351-7, 5130-0, 64765-5, 70575-1, 29292-5, 3357-1, 8092-9, 65675-5, 07854-0, 83958-5, 65597-9, 09680-2 #### [facility] ([id number]) [address], [address] [place] [address] Neutrophils/100 WBC (Bld) 93.3 % Normal [facility] Comment on above: Performed By: #### C BCA, CMP, 1987-12, FEPR, 2276-4, 2284-8, 92713-0, 2132-9, 10600-1, 54446-3, 5130-0, 55867-5, 68502-0, 62258-8, 3357-1, 8092-9, 78920-4, 43007-7, 73383-1, 81639-7, 34479-0 #### [facility] ([id number]) [address], [address] [place] [address] Platelet mean volume (Bld) [Entitic vol] 6.3 fL Low 7-12 [facility] Comment on above: Performed By: #### C SHARATH, CMP, 1987-12, FEPR, 2276-4, 2284-8, 17741-0, 2132-9, 64125-7, 40080-3, 5130-0, 89274-9, 86646-0, 87119-6, 3357-1, 8092-9, 27983-3, 80605-0, 27348-6, 26189-6, 77229-7 #### [facility] ([id number]) [address] [facility], [address] [place] [address] Platelets (Bld) [#/Vol] 917 10*3/uL High 150-450 [facility] Comment on above: Performed By: #### C SHARATH, KELVIN, 1987-12, FEPR, 2275-4, 2284-8, 07268-7, 2132-9, 66087-9, 48038-2, 5130-0, 40358-0, 26443-8, 95524-2, 3357-1, 8092-9, 36099-3, 31185-3, 10227-7, 15094-3, 95010-5 #### [facility] ([id number]) [address] [facility], [address] [place] [address] RBC COUNT 3.07 X10E12/L Low 3.80-5.20 [facility] Comment on above: Performed By: #### C SHARATH, CMP, 1987-12, FEPR, 2276-4, 2284-8, 66334-9, 2132-9, 65762-1, 30025-2, 5130-0, 62581-2, 20260-4, 59332-2, 3357-1, 8092-9, 35062-8, 64352-6, 87645-2, 43328-2, 41229-8 #### [facility] ([id number]) [address] [place] [address], [address] [place] [address] WBC (Bld) [#/Vol] 11.1 10*3/uL High 4.0-11.0 [facility] Comment on above: Performed By: #### C BCA, CMP, 1988-5, FEPR, 2276-4, 2284-8, 91303-7, 213-9, 17110-4, 46472-6, 5130-0, 12745-9, 46045-4, 59332-4, 3357-1, 8092-9, 83821-9, 94472-7, 46832-7, 72015-1, 50834-0 #### [facility] ([id number]) [address] [place] [address], [address] [place] [address] CBC auto differentialon 08-27 Basophils (Bld) [#/Vol] 0.0 10*3/uL [facility] Basophils/100 WBC (Bld) 0.2 % [facility] Eosinophils (Bld) [#/Vol] 0.0 10*3/uL [...] Interpretation and review of laboratory results Abnormal [facility] Lymphocytes (Bld) [#/Vol] 0.4 10*3/uL Low [facility] Lymphocytes/100 WBC (Bld) 3.3 % [facility] MCH (RBC) [Entitic mass] 27.8 pg 27 - 34 pg [facility] MCHC (RBC) [Mass/Vol] 32.7 g/dL 32 - 36 g/dL [facility] MCV (RBC) [Entitic vol] 85 fL 80 - 100 fL [facility] Monocytes (Bld) [#/Vol] 0.1 10*3/uL [facility] Monocytes/100 WBC (Bld) 1.0 % [facility] Neutrophils (Bld) [#/Vol] 11.5 10*3/uL High [facility] Neutrophils/100 WBC (Bld) 95.5 % [facility] Platelet mean volume (Bld) [Entitic vol] 6.2 fL Low 7 - 12 fL [facility] Platelets (Bld) [#/Vol] 924 10*3/uL High [facility] RBC (Bld) [#/Vol] 3.27 10*6/uL Low [facility] WBC corrected for nucl RBC Auto (Bld) [#/Vol] 12.1 High [facility] Basophils (Bld) [#/Vol] 0.2 10*3/uL [facility] Basophils/100 WBC (Bld) 2.1 % [facility] Eosinophils (Bld) [#/Vol] 0.0 10*3/uL [facility] Eosinophils/100 WBC (Bld) 0.0 % [facility] Erythrocyte distribution width (RBC) [Ratio] 14.6 % 11.5 - 15.0 % [facility] Hematocrit (Bld) [Volume fraction] 26.2 % Low 35 - 47 % [facility] Hemoglobin (Bld) [Mass/Vol] 8.6 g/dL Low 11.7 - 15.5 g/dL [facility] Interpretation and review of laboratory results Abnormal [facility] Lymphocytes (Bld) [#/Vol] 0.4 10*3/uL Low [facility] Lymphocytes/100 WBC (Bld) 3.6 % [facility] MCH (RBC) [Entitic mass] 28.1 pg 27 - 34 pg [facility] MCHC (RBC) [Mass/Vol] 32.9 g/dL 32 - 36 g/dL [facility] MCV (RBC) [Entitic vol] 85 fL 80 - 100 fL [facility] Monocytes (Bld) [#/Vol] 0.1 10*3/uL [facility] Monocytes/100 WBC (Bld) 1.0 % [facility] Neutrophils (Bld) [#/Vol] 10.4 10*3/uL High [facility] Neutrophils/100 WBC (Bld) 93.3 % [facility] Platelet mean volume (Bld) [Entitic vol] 6.3 fL Low 7 - 12 fL [facility] Platelets (Bld) [#/Vol] 917 10*3/uL High [facility] RBC (Bld) [#/Vol] 3.07 10*6/uL Low [facility] WBC corrected for nucl RBC Auto (Bld) [#/Vol] 11.1 High [facility] COMPREHENSIVE METABOLIC PANE Cole 09-23-2023 Albumin [Mass/Vol] 3.0 g/dL Low 3.2-5.3 [facility] Comment on above: Performed By: #### C BCA, CMP, 1987-12, FEPR, 2275-4, 4-8, 84491-5, 2131-9, 65746-4, 07262-8, 5130-0, 85915-3, 21413-9, 48917-8, 3357-1, 8092-9, 20750-6, 40191-4, 01871-2, 97289-6, 59412-0 #### [facility] ([id number]) [address], [address] [place] [address] ALP [Catalytic activity/Vol] 227 U/L High 39-130 [facility] Comment on above: Performed By: #### C BCA, CMP, 1987-12, FEPR, 2276-4, 2284-8, 81023-2, 2-9, 46169-7, 86526-5, 5130-0, 06800-0, 53081-9, 01121-0, 3357-1, 8092-9, 94900-8, 66758-1, 16026-9, 21350-4, 86127-4 #### [facility] ([id number]) [address], [address] [place] [address] ALT [Catalytic activity/Vol] 11 U/L Normal 0-31 [facility] Comment on above: Performed By: #### C BCA, CMP, 1987-12, FEPR, 2276-4, 2284-8, 76223-3, 2132-9, 14314-9, 94777-0, 5130-0, 68356-0, 49461-8, 73974-4, 3357-1, 8092-9, 99967-6, 89194-6, 05035-0, 74467-9, 51547-6 #### [facility] ([id number]) [address] [place] [address], [address] [place] [address] Anion gap [Moles/Vol] 13 mmol/L Normal 5-15 [facility] Comment on above: Performed By: #### C BCA, CMP, 1987-12, FEPR, 2276-4, 2284-8, 95794-1, 2132-9, 06945-5, 17339-7, 5130-0, 11764-7, 08850-7, 28301-4, 3357-1, 8092-9, 17628-3, 04263-9, 95991-8, 45141-2, 91520-5 #### [facility] ([id number]) [address], [address] [place] [address] AST [Catalytic activity/Vol] 12 U/L Normal 0-41 [facility] Comment on above: Performed By: #### C BCA, CMP, 1987-12, FEPR, 2276-4, 2284-8, 19266-6, 2132-9, 08045-4, 77687-4, 5130-0, 81866-9, 06565-8, 25486-9, 3357-1, 8092-9, 19575-5, 25765-8, 09843-6, 47396-3, 22827-8 #### [facility] ([id number]) [address], [address] [place] [address] Bilirubin [Mass/Vol] 0.6 mg/dL Normal 0.3-1.2 [facility] Comment on above: Performed By: #### C BCA, CMP, 1987-12, FEPR, 2276-4, 2284-8, 58637-8, 2132-9, 36236-3, 18970-0, 5130-0, 79531-0, 65658-9, 14910-3, 3357-1, 8092-9, 17047-8, 20701-0, 99137-0, 00811-9, 97932-9 #### [facility] ([id number]) [address] [facility], [address] [place] [address] Calcium [Mass/Vol] 8.6 mg/dL Normal 8.5-10.5 [facility] Comment on above: Performed By: #### C BCA, CMP, 1987-12, FEPR, 2275-4, 2284-8, 23664-7, 2132-9, 54559-9, 86770-9, 5130-0, 10347-5, 98263-7, 24120-5, 3357-1, 8092-9, 39191-3, 60419-7, 38582-6, 22380-7, 07167-3 #### [facility] ([id number]) [address], [address] [place] [address] Chloride [Moles/Vol] 101 mmol/L Normal 98-109 [facility] Comment on above: Performed By: #### C BCA, CMP, 1987-12, FEPR, 2276-4, 2284-8, 04273-6, 2132-9, 24529-9, 51171-6, 5130-0, 36288-6, 42165-4, 70391-6, 3357-1, 8092-9, 10400-6, 40664-5, 46704-9, 26104-9, 57983-4 #### [facility] ([id number]) [address] [facility], [address] [address] CO2 [Moles/Vol] 25 mmol/L Normal 22-32 [facility] Comment on above: Performed By: #### C SHARATH, KELVIN, 1987-12, FEPR, 6-4, 2284-8, 45630-7, 2132-9, 14501-4, 79963-7, 5130-0, 55286-7, 57037-8, 69136-6, 3357-1, 8092-9, 25530-9, 77119-2, 50995-1, 57820-8, 28608-0 #### [facility] ([id number]) [address] [facility], [address] [address] Creatinine [Mass/Vol] 0.49 mg/dL Normal 0.40-1.00 [facility] Comment on above: Result Comment: METH OD TRACEABLE TO IDMS STANDARD Performed By: #### C KELVIN EARLY, 1987-12, FEPR, 6-4, 2284-8, 46825-7, 2132-9, 34363-9, 69379-1, 5130-0, 24082-7, 40228-4, 35480-7, 3357-1, 8092-9, 89238-8, 87612-0, 57111-9, 04278-5, 42217-7 #### [facility] ([id number]) [address] [address] eGFR (CKD-EPI) NON-RACE DEPENDENT >90 Normal >59 [facility] Comment on above: Result Comment: Reported eGFR is based on the CKD-EPI 2020 equation that does not use a race coefficient. Performed By: #### C KELVIN EARLY, 1987-12, FEPR, 2276-4, 2284-8, 93611-6, 2132-9, 25812-4, 55464-2, 5130-0, 94344-4, 63218-6, 59545-8, 3357-1, 8092-9, 43514-8, 85282-5, 87213-6, 92790-5, 15519-1 #### [facility] ([id number]) [address], [address] [place] [address] Glucose [Mass/Vol] 141 mg/dL High 65-99 [facility] Comment on above: Performed By: #### C BCA, CMP, 1987-12, FEPR, 227-4, 2284-8, 33959-3, 2132-9, 20325-0, 07592-3, 5130-0, 77482-2, 11305-4, 95897-7, 3357-1, 8092-9, 62329-8, 32688-0, 22654-2, 35689-1, 86955-5 #### [facility] ([id number]) [address] [facility], [address] [place] [address] Potassium [Moles/Vol] 3.7 mmol/L Normal 3.5-5.0 [facility] Comment on above: Performed By: #### C BCA, CMP, 1987-12, FEPR, 6-4, 2284-8, 91752-6, 2132-9, 31607-2, 69909-7, 5130-0, 10005-9, 00249-8, 47528-4, 3357-1, 8092-9, 03112-2, 92337-1, 81123-0, 60004-3, 12696-3 #### [facility] ([id number]) [address], [address] [place] [address] Protein [Mass/Vol] 6.9 g/dL Normal 6.0-8.0 [facility] Comment on above: Performed By: #### C BCA, CMP, 1987-12, FEPR, 2276-4, 2284-8, 38606-2, 2132-9, 06147-3, 58570-6, 5130-0, 22631-4, 91043-4, 56612-9, 3357-1, 8092-9, 71342-6, 61139-1, 57957-9, 85943-2, 56241-6 #### [facility] ([id number]) [address] [place] [address], [address] [place] [address] Sodium [Moles/Vol] 139 mmol/L Normal 134-146 [facility] Comment on above: Performed By: #### C BCA, CMP, 1987-12, FEPR, 227-4, 2284-8, 45843-6, 2132-9, 36375-1, 08414-0, 5130-0, 95697-2, 84631-8, 06698-1, 3357-1, 8092-9, 60966-4, 99527-8, 61465-2, 26952-5, 86932-2 #### [facility] ([id number]) [address] [place] [address], [address] [place] [address] Urea nitrogen [Mass/Vol] 14 mg/dL Normal 5-27 [facility] Comment on above: Performed By: #### C BCA, CMP, 1987-12, FEPR, 2275-4, 2284-8, 92216-3, 2132-9, 96692-9, 34490-2, 5130-0, 78327-2, 99226-1, 19855-1, 3357-1, 8092-9, 45496-2, 57519-8, 52464-9, 64947-6, 72576-9 #### [facility] ([id number]) [address] [place] [address], [address] [place] [address] CRP [Mass/Vol]on 09-23-2023 C REACTIVE PROTEIN 13.3 mg/dL High 0.000-0.744 [facility] Comment on above: Performed By: #### C SHARATH, CMP, 1987-12, FEPR, 2275-4, 2284-8, 64103-8, 2132-9, 80049-5, 15244-0, 5130-0, 21677-5, 05032-3, 25501-3, 3357-1, 8092-9, 52774-3, 09053-5, 81618-9, 30795-3, 62443-7 #### [facility] ([id number]) [address] [facility], [address] [place] [address] Centromere ABon 09-23-2023 Centromere protein B Ab Ql (S) High [facility] Comment on above: CLIA ID [id number] Centromere protein B Ab Ql ( S)on 09-23-2023 Interpretation and review of laboratory results Abnormal [facility] CENTROMERE ANTIBODY >8.0 High <1.0 [facility] Comment on above: Performed By: #### C SHARATH, KELVIN, 1987-12, FEPR, 2275-4, 2284-8, 81248-9, 2132-9, 76458-2, 52170-2, 5130-0, 46610-8, 72735-9, 94779-4, 3357-1, 8092-9, 94715-5, 12312-3, 70299-1, 87606-1, 62851-5 #### [facility] ([id number]) [address] [place] [address], [address] [place] [address] Chromatin Ab Qlon 09-23-2023 CHROMATIN AB IGG 0.4 AI Normal <1.0 [facility] Comment on above: Performed By: #### C SHARATH, CMP, 1987-12, FEPR, 2275-4, 2284-8, 74242-5, 2132-9, 46596-5, 09931-8, 5130-0, 93607-3, 10246-6, 87222-5, 3357-1, 8092-9, 36153-1, 47510-7, 92800-4, 53440-0, 47534-8 #### [facility] ([id number]) [address] [place] [address], [address] [place] [address] Clinical Pathologyon 024 Clinical Pathology Normal [facility] Comment on above: Result Comment: [facility] [address] [place] [address] Clinical Pathology Report Patient Name:JOSE DAVID:1945 (Age: 78)Gender:FTaken:4Reported:09/27/2023hysician(s):Olga Pan M.D. ([phone])Copy To: Rec. #:[id number]: #[id number] Final Pathologic Diagnosis Hypoalbuminemia with increase in acute phase reactants. No monoclonal bands identified. Report Electronically Signed Out df/4Dkevin Bains MD [facility] [place] [address], License number: [id number]. Clinical History E53.8, H53.8, R29.90. SERUM PROTEIN ELECTROPHORESIS SAMPLE NO: [id number] ELECTROPHORETIC FRACTION CONCENTRATIONS (g/dL) PATIENT REFERENCE RANGE [...] IgA : 180 IgM : 285 Free [place]: 2.91 Free Lambda: 2.38 Free [place]/Lambda ratio: 1.22 Specimen(s) Received 1: Serum Protein Electrophoresis 2: Serum IEP Fee Codes(s): 1; 72159-74 2; 46789-86 Clinical Pathology Blood Sme ar Reviewon 09-23-2023 Clinical Pathology Blood Smear Review Normal [facility] Comment on above: Result Comment: [facility] [address] [place] [address] Clinical Pathology Report Patient Name:JOSE DAVID:1945 (Age: 78)Gender:FTaken:09/23/2023eported:09/26/2023hysician(s):Olga Pan M.D. ([phone])Copy To: Rec. #:[id number]: #[id number] Final Pathologic Diagnosis Peripheral blood smear: Neutrophilic [...] Out hn/09/26/2023Og Martinez M.D. Interpret[place] [address], License number: [id number]. Clinical History R29.9. BLOOD SMEAR EVALUATION CBC (09/23/2023 0818): WBC = 12.1 X10E9/L; HGB = 9.1 g/dL; HCT = 27.8%; MCV = 85 fL; PLT = 924 X10E9/L OTHER LAB DATA: Noncontributory. BLOOD SMEAR: Leukocytes: Neutrophilic leukocytosis with cytotoxic changes and lymphocytopenia. Erythrocytes: Moderate normocytic normochromic anemia. Platelets: Thrombocytosis. Specimen(s) Received Blood Smear Review Fee Codes(s): 1; 84682 Cobalamin (Vitamin B12) [Mas s/Vol]on 09-23-2023 [facility] Comprehensive metabolic pane cole 09-23-2023 Albumin [Mass/Vol] 3.0 g/dL Low 3.2 - 5.3 g/dL [facility] ALP [Catalytic activity/Vol] 227 U/L High 39 - 130 U/L [facility] ALT No additional P-5'-P [Catalytic activity/Vol] 11 U/L 0 - 31 U/L [facility] Anion gap [Moles/Vol] 13 mmol/L 5 - 15 mmol/L [facility] AST [Catalytic activity/Vol] 12 U/L 0 - 41 U/L [facility] Bilirubin [Mass/Vol] 0.6 mg/dL 0.3 - 1 .2 mg/dL [facility] Calcium [Mass/Vol] 8.6 mg/dL 8.5 - 10. 5 mg/dL [facility] Chloride [Moles/Vol] 101 mmol/L 98 - 10 9 mmol/L [facility] CO2 [Moles/Vol] 25 mmol/L 22 - 32 mmol/L [facility] Creatinine [Mass/Vol] 0.49 mg/dL 0.40 - 1.00 mg/dL [facility] Comment on above: METHOD TRACEABLE TO [facility] STANDARD eGFR (CKD-EPI)non-race dependent - PINF [facility] Comment on above: Reported eGFR is based on the CKD-EPI 2020 equation that does not use a race coefficient. Glucose [Mass/Vol] 141 mg/dL High 65 - 99 mg/dL [facility] Potassium [Moles/Vol] 3.7 mmol/L 3.5 - 5.0 mmol/L [facility] Protein [Mass/Vol] 6.9 g/dL 6.0 - 8.0 g/dL [facility] Sodium [Moles/Vol] 139 mmol/L 134 - 146 mmol/L [facility] Urea nitrogen [Mass/Vol] 14 mg/dL 5 - 27 mg/d L [facility] DNA double strand Ab Qn (S)o n 09-23-2023 DOUBLE STRANDED DNA 1 IU/ML Normal <5 [facility] Comment on above: Result Comment: Interpretation-------- <5 Negative 5-9 Indeterminate >9 Positive Performed By: #### C SHARATH, CMP, 1987-12, FEPR, 2276-4, 2284-8, 34227-7, 2132-9, 15822-0, 39469-1, 5130-0, 96791-1, 03712-8, 83510-2, 3357-1, 8092-9, 03235-8, 25245-0, 96436-2, 25044-2, 35386-9 #### [facility] ([id number]) [address] [place] [address], [address] [place] [address] Direct Coombson 09-23-2023 Polyspecific HENRRY Negative [facility] ESR Photometric method (Bld) [Velocity]on 09-23-2023 Interpretation and review of laboratory results Abnormal [facility] ESR, ERYTHROCYTE SEDIMENTATION RATE 114 mm/h High 0-30 [facility] Comment on above: Performed By: #### C SHARATH, CMP, 1987-12, FEPR, 2276-4, 2284-8, 26133-2, 2132-9, 16412-9, 53644-5, 5130-0, 97786-2, 73292-1, 30801-5, 3357-1, 8092-9, 54929-6, 24443-5, 66783-3, 65626-5, 19230-0 #### [facility] ([id number]) [address] [place] [address], [address] [place] [address] Erythrocyte Sedimentation Ra te (ESR)on 09-23-2023 ESR Photometric method (Bld) [Velocity] 114 mm/h High 0 - 30 mm/h [facility] FERRITINon 09-23-2023 Ferritin [Mass/Vol] 478 ng/mL High 11-307 [facility] Comment on above: Performed By: #### C BCA, CMP, 1987-12, FEPR, 2276-4, 2284-8, 70203-8, 2132-9, 33131-6, 31111-5, 5130-0, 77529-6, 63718-5, 99023-7, 3357-1, 8092-9, 08962-5, 33247-7, 32231-6, 46738-2, 37514-1 #### [facility] ([id number]) [address] [facility], [address] [place] [address] FLOW CYTOMETRYon 09-23-2023 FLOW CYTOMETRY SEE SEPARATE REPORT, REVIEWED BY PATHOLOGIST Normal [facility] Comment on above: Performed By: #### C SHARATH, CMP, 1987-12, FEPR, 2275-4, 2284-8, 75022-3, 2132-9, 96681-0, 35788-0, 5130-0, 77589-5, 13556-5, 56775-7, 3357-1, 8092-9, 21546-1, 05960-1, 34363-9, 15861-3, 50219-6 #### [facility] ([id number]) [address] [place] [address], [address] [place] [address] Ferritinon 09-23-2023 Ferritin [Mass/Vol] 478 ng/mL High 11 - 307 ng/mL [facility] Ferritin [Mass/Vol]on 2023 Interpretation and review of laboratory results Abnormal [facility] Folateon 09-23-2023 Folate [Mass/Vol] 13.0 ng/mL 5.8 - PINF ng/mL [facility] Comment on above: NEW REFERENCE RANGE Folate [Mass/Vol]on 09-23-19 24 [facility] FOLIC ACID 13.0 ng/mL Normal >5.8 [facility] Comment on above: Result Comment: NEW REFERENCE RANGE Performed By: #### C BCA, CMP, 1987-12, FEPR, 2276-4, 2284-8, 31024-6, 2131-9, 98570-4, 27520-8, 5130-0, 49826-5, 53973-7, 10604-1, 3357-1, 8092-9, 07006-5, 11590-2, 38184-2, 79180-6, 65433-7 #### [facility] ([id number]) [address] [facility], [address] [place] [address] Haptoglobinon 09-23-2023 Haptoglobin Nephelometry [Mass/Vol] 613 mg/dL High 32 - 228 mg/dL [facility] Haptoglobin Nephelometry [Ma ss/Vol]on 09-23-2023 Interpretation and review of laboratory results Abnormal [facility] HAPTOGLOBIN 613 mg/dL High 32-228 [facility] Comment on above: Performed By: #### C BCA, CMP, 1988-5, FEPR, 2276-4, 2284-8, 33011-2, 9, 36316-0, 81114-5, 5130-0, 14949-6, 74684-1, 51330-9, 3357-1, 8092-9, 79947-5, 01892-2, 23150-4, 56621-3, 25249-6 #### [facility] ([id number]) [address] [facility], [address] [place] [address] Hepatitis panel, acuteon HAV IgM IA Ql Non-Reactive Non-Reactive ^Non-Reactiv e [facility] HBV core IgM IA Ql Negative Negative^ Neg ative [facility] HBV surface Ag IA Ql Negative Negativ e^Neg ative [facility] HCV Ab IA Ql Non-Reactive Non-Reactive ^Non-Reactiv e [facility] Comment on above: If recent infection suspected, recommend repeat testing (>2 months). Eogotg-is-vqxyuv ratio is <0.80. [facility] Homocysteine [Moles/Vol]on 0 09-23-2023 HOMOCYSTEINE 9.29 mcmol/L Normal 3.36-20.44 [facility] Comment on above: Performed By: #### C BCA, CMP, 1987-12, FEPR, 2276-4, 2284-8, 46850-2, 2132-9, 78997-9, 24704-5, 5130-0, 80260-2, 85027-2, 17150-4, 3357-1, 8092-9, 32196-7, 52491-1, 49829-1, 54262-8, 56616-7 #### [facility] ([id number]) [address] [facility], [address] [place] [address] [facility] Homocysteine totalon 024 Homocysteine [Moles/Vol] 9.29 umol/L [facility] IMMUNOELECTROPHORESIS FOR TH ERAPY MONITORINGon 09-23-2023 FREE KECIA/LAMBD RATIO 1.22 Normal 0.26-1.65 [facility] Comment on above: Performed By: #### C BCA, CMP, 1987-12, FEPR, 2275-4, 4-8, 07086-7, 2131-9, 86788-7, 66152-8, 5130-0, 03168-7, 54914-4, 46814-0, 3357-1, 8092-9, 49543-7, 74463-4, 04442-9, 66335-0, 57040-5 #### [facility] ([id number]) [address] [facility], [address] [place] [address] FREE KAPPA LT CHAINS 2.91 mg/dL High 0.33-1.94 [facility] Comment on above: Performed By: #### C BCA, CMP, 1987-12, FEPR, 2275-4, 2284-8, 86377-4, 2132-9, 56362-1, 69122-8, 5130-0, 00708-8, 23441-7, 06559-5, 3357-1, 8092-9, 47909-4, 69834-6, 80392-0, 43833-8, 16312-6 #### [facility] ([id number]) [address], [address] [place] [address] FREE LAMBDA LT CHAINS 2.38 mg/dL Normal 0.57-2.63 [facility] Comment on above: Performed By: #### C BCA, CMP, 1987-12, FEPR, 2276-4, 2284-8, 13573-7, 2132-9, 73187-3, 78030-1, 5130-0, 37843-5, 17958-2, 48672-6, 3357-1, 8092-9, 56053-5, 54487-8, 94399-7, 06512-6, 49790-1 #### [facility] ([id number]) [address], [address] [place] [address] IgA [Mass/Vol] 180 mg/dL Normal 68-378 [facility] Comment on above: Performed By: #### C BCA, CMP, 1987-12, FEPR, 2275-4, 2284-8, 02213-5, 2132-9, 06419-1, 16830-0, 5130-0, 85582-9, 39269-0, 68915-3, 3357-1, 8092-9, 13540-4, 27985-0, 50870-2, 77617-3, 37302-0 #### [facility] ([id number]) [address], [address] [place] [address] IgG [Mass/Vol] 992 mg/dL Normal 635-1741 [facility] Comment on above: Performed By: #### C BCA, CMP, 1987-12, FEPR, 2275-4, 2284-8, 79893-2, 2132-9, 75979-1, 89431-5, 5130-0, 24601-3, 35500-0, 86565-2, 3357-1, 8092-9, 39908-5, 70715-4, 60671-2, 35196-8, 49647-6 #### [facility] ([id number]) [address], [address] [place] [address] IgM [Mass/Vol] 285 mg/dL High 45-281 [facility] Comment on above: Performed By: #### C BCA, CMP, 1987-12, FEPR, 2276-4, 2284-8, 81674-1, 2132-9, 49295-5, 41145-8, 5130-0, 97834-1, 57779-1, 07770-3, 3357-1, 8092-9, 10056-5, 52405-4, 31377-3, 79848-5, 72281-3 #### [facility] ([id number]) [address], [address] [place] [address] IMMUNE PROFILE INTERP SEE SEPARATE REPORT Normal [facility] Comment on above: Performed By: #### C BCA, CMP, 1987-12, FEPR, 2275-4, 2284-8, 39754-3, 2132-9, 41009-3, 72391-1, 5130-0, 61811-3, 78344-3, 41077-8, 3357-1, 8092-9, 76827-9, 02687-0, 22627-0, 85349-6, 24085-5 #### [facility] ([id number]) [address], [address] [place] [address] IRON PROFILEon 09-23-2023 Iron [Mass/Vol] 25 ug/dL Low 50-170 [facility] Comment on above: Performed By: #### C BCA, CMP, 1987-12, FEPR, 227-4, 2284-8, 72468-3, 2132-9, 41371-9, 29458-8, 5130-0, 91189-7, 35456-0, 59772-1, 3357-1, 8092-9, 96762-7, 61785-2, 13932-3, 53179-9, 98557-3 #### [facility] ([id number]) [address] [facility], [address] [place] [address] IRON BINDING 179 ug/dL Low 250-425 [facility] Comment on above: Performed By: #### C BCA, CMP, 1987-, FEPR, 2276-4, 2284-8, 67042-4, 2132-9, 15805-2, 19660-7, 5130-0, 82549-0, 69969-9, 61699-2, 3357-1, 8092-9, 92438-4, 32717-6, 99808-9, 63941-6, 27108-3 #### [facility] ([id number]) [address] [facility], [address] [place] [address] IRON SATURATION 14 % SATURATION Low 15-50 [facility] Comment on above: Performed By: #### C BCA, CMP, 1987-12, FEPR, 2276-4, 2284-8, 02869-0, 2132-9, 40554-2, 57638-5, 5130-0, 10334-9, 05485-9, 79537-9, 3357-1, 8092-9, 38753-5, 21937-7, 58681-9, 14226-9, 01855-0 #### [facility] ([id number]) [address] [facility], [address] [place] [address] Iron and TIBCon 09-23-2023 Interpretation and review of laboratory results Abnormal [facility] Iron [Mass/Vol] 25 ug/dL Low 50 - 170 ug/dL [facility] Iron binding capacity [Mass/Vol] 179 ug/dL Low 250 - 425 ug/dL [facility] Iron saturation [Mass fraction] 14 Low [facility] JAK2 gene p.[id number] Molgen Ql (Bld/Tiss)on 09-23-2023 JAK2 V617F MUTATION, BLOOD SEE COMMENTS 09/26/2023 10:21 AM Normal [facility] Comment on above: Result Comment: NOTE Test Result Flag Unit RefValue ----- JAK2 V617F Mutation Detection, B JAK2 Result see interpretation JAK2 V617F Mutation Detection, B See Note Peripheral blood, JAK2 V617F mutation analysis: Negative for JAK2 V617F. A negative [id number] test result does not exclude the possibility [...] assay has been determined at 0.06% (see [facility] Interpretive Handbook for method details). This test was developed and its performance characteristics determined by [facility] in a manner consistent with CLIA requirements. This test has not been cleared or approved by the U.S. Food and Drug Administration. Test Performed by: [facility] [place] [address] Chemical Applicator: Thierry Duran M.D. Ph.D.; CLIA# [id number] Performed By: #### C BCA, CMP, 1987-5, FEPR, 2276-4, 2284-8, 38420-4, 2132-9, 37925-0, 03829-9, 5130-0, 16506-2, 71625-0, 29205-4, 3357-1, 8092-9, 90229-8, 47894-1, 88224-1, 46184-0, 16880-7 #### [facility] ([id number]) [address] [place] [address], [address] [place] [address] Tiki 1 AB IGGon 09-23-2023 Anileridine Ql (U) NINF [facility] LDHon 09-23-2023 LDH [Catalytic activity/Vol] 140 U/L 100 - 235 U/L [facility] LDH [Catalytic activity/Vol] on 09-23-2023 [facility] LDH 140 U/L Normal 100-235 [facility] Comment on above: Performed By: #### C BCA, CMP, 1988-5, FEPR, 2276-4, 2284-8, 58038-9, 2132-9, 80118-5, 43725-8, 5130-0, 38428-9, 95712-9, 24100-8, 3357-1, 8092-9, 00503-8, 37836-9, 09172-2, 95269-8, 18700-7 #### [facility] ([id number]) [address] [place] [address], [address] [place] [address] Methylmalonate [Moles/Vol]on 09-23-2023 MMA QN 0.23 umol/L Normal <=0.40 [facility] Comment on above: Result Comment: NOTE This test was developed and its performance characteristics determined by [facility] [place] ([facility] It has not been cleared or approved by the FDA. -[facility] is regulated under CLIA as qualified to perform high-complexity testing. This test is used for clinical purposes. It should not be regarded as investigational or for research. Test Performed By: [facility] [address] [address] [place] [address] [employer] B[employer] Developer: Meño Hernandez III, M.D. CLIA #[id number] Narrative diagnostic report Molgen Yaw (Bld/Tiss) [Interp]on 09-23-2023 BCR/ABL PCR w/Reflex SEE COMMENTS 09/25/2023 04:24 PM Normal [facility] Comment on above: Result Comment: NOTE Test Result Flag Unit RefValue ----- BCR/ABL1 Reflex, Qual/Quant Specimen Type EDTA WHOLE BLOOD BCR/ABL1 Reflex Result see interpretation Interpretation See Note Peripheral blood, BCR/ABL1 mRNA analysis, qualitative: Negative. No BCR/ABL1 mRNA transcripts were detected. Method summary: The presence or absence of BCR/ABL1 mRNA transcripts was evaluated using a qualitative, reverse block chopper hand PCR-based assay. The assay detects nearly all published and theoretical BCR/ABL1 fusion forms including the common e13/e14-a2 (p210) and e1-a2 (p190) transcripts, as well as other rarer variants (e.g. e19-a2 (p230), e13/e14-a3, e1-a3, etc.). The limit of detection for this assay is 0.1%. Please contact the lab at [phone] with questions or if additional testing is required. See [employer] Test Catalog for additional method details. Signing Pathologist: Ammon Titus M.D. (Jane), Ph.D. ADDITIONAL INFORMATION This test was developed and its performance characteristics determined by [facility] in a manner consistent with CLIA requirements. This test has not been cleared or approved by the U.S. Food and Drug Administration. Test Performed by: [facility] [place] [address] Chemical Applicator: Thierry Duran M.D. Ph.D.; CLIA# [id number] Neutrophil cytoplasmic Ab IF Ql (S)on 09-23-2023 ANCA See Below Normal [facility] Comment on above: Result Comment: NOTE TEST [...] See below Reviewed by Arun Tucker, Ph.D D([facility]) This test is used as an aid in diagnosis of patients with autoimmune vasculitidies. The final interpretation should be done in conjunction with ANCA test results and clinical correlation. Test Performed By: [place] [address] [employer] B[employer] Developer: Meño Hernandez III, M.D. [facility] #[id number] No Panel Informationon 09-23 [facility] Interpretation and review of laboratory results Abnormal [facility] Nuclear Ab IA Ql (S)on 09-23 Interpretation and review of laboratory results Abnormal [facility] SILVIA Screen w/reflex Positive Abnormal NEG [facility] Comment on above: Result Comment: Testing performed using multiplex flow immunoassay. Eleven different antigens associated with systemic autoimmune diseases (dsDNA,Sm,Sm/TOOL [employer]ODUCTION PLANNER,TOOL AND PRODUCTION PLANNER,Chromatin, SSA,SSB,Tiki-1,Scl70,Ribo P,Centromere B) are included in this screening test. Performed By: #### C BCA, CMP, 1988-5, FEPR, 2276-4, 2284-8, 91908-3, 2132-9, 70530-8, 83560-0, 5130-0, 04122-4, 47063-0, 77877-5, 3357-1, 8092-9, 21710-9, 03834-4, 88004-0, 94310-9, 74969-1 #### [facility] ([id number]) [address] [place] [address], [address] [place] [address] comment (Bld) [Interp]on 09-23-2023 STAFF REVIEW NOTE Normal [facility] Comment on above: Result Comment: [facility] [address] [place] [address] Clinical Pathology Report Patient Name:JOSE DAVID:1945 (Age: 78)Gender:FTaken:4Reported:09/26/2023hysician(s):Olga Pan M.D. ([phone])Copy To: Rec. #:[id number]: #[id number] Final Pathologic Diagnosis Peripheral blood smear: Neutrophilic [...] is recommended. Report Electronically Signed Out hna/09/26/2023Og Mratinez M.D. Interpretation [place] [address], License number: [id number]. Clinical History R29.9. BLOOD SMEAR EVALUATION CBC (09/23/2023 0818): WBC = 12.1 X10E9/L; HGB = 9.1 g/dL; HCT = 27.8%; MCV = 85 fL; PLT = 924 X10E9/L OTHER LAB DATA: Noncontributory. BLOOD SMEAR: Leukocytes: Neutrophilic leukocytosis with cytotoxic changes and lymphocytopenia. Erythrocytes: Moderate normocytic normochromic anemia. Platelets: Thrombocytosis. Specimen(s) Received Blood Smear Review Fee Codes(s): 1; [address]27 Performed By: #### C SHARATH, KELVIN, 1986-12, FEPR, 2275-4, 2284-8, 99288-4, 2132-9, 61703-7, 56934-9, 5130-0, 44820-7, 74743-6, 61783-4, 3357-1, 8092-9, 66277-5, 55592-8, 45115-5, 60784-9, 40271-9 #### [facility] ([id number]) [address], [address] [place] [address] [employer]OL AND [employer]ODUCTION [employer]ANNER AB IgGon 09-23-2023 Ribonucleoprotein extractable nuclear IgG Qn (S) [facility] Comment on above: CLIA ID [id number] Rheumatoid factoron 09-23-19 Rheumatoid factor Nephelometry Qn (S) 21 High [facility] Rheumatoid factor Nephelomet ry Qn (S)on 09-23-2023 Interpretation and review of laboratory results Abnormal [facility] RHEUMATOID FACTOR 21 IU/mL High <20 [facility] Comment on above: Performed By: #### C SHARATH, KELVIN, 1986-12, FEPR, 2275-4, 4-8, 59299-6, 2-9, 85211-4, 32280-0, 5130-0, 43207-8, 58840-0, 40723-5, 3357-1, 8092-9, 79643-7, 93474-6, 55880-9, 99992-0, 21663-3 #### [facility] ([id number]) [address], [address] [place] [address] Ribonucleoprotein extractabl e nuclear IgG Qn (S)on 09-23-2023 [employer]ODUCTION [employer]NER ANTIBODY IGG <0.2 Normal <1.0 [facility] Comment on above: Performed By: #### C SHARATH, KELVIN, 1986-12, FEPR, 2275-4, 2284-8, 87422-0, 2131-9, 36025-8, 91853-7, 5130-0, 16101-9, 32866-3, 33340-4, 3357-1, 8092-9, 74558-3, 49686-7, 43693-7, 78537-9, 82713-6 #### [facility] ([id number]) [address], [address] [place] [address] Ribosomal P IgG Qn (S)on RIBOSOME P ANTIBODY <0.2 Normal <1.0 [facility] Comment on above: Performed By: #### C BCA, CMP, 1987-12, FEPR, 2275-4, 2284-8, 23926-2, 2131-9, 00178-3, 93153-8, 5130-0, 98020-3, 41809-9, 39271-6, 3357-1, 8092-9, 28739-6, 67557-5, 07754-0, 91832-6, 75451-8 #### [facility] ([id number]) [address], [address] [place] [address] SCL-70 extractable nuclear A b Ql (S)on 09-23-2023 SCL 70 ANTIBODY <0.2 Normal <1.0 [facility] Comment on above: Performed By: #### C BCA, CMP, 1987-12, FEPR, 6-4, 2284-8, 20176-9, 2131-9, 75087-9, 86898-9, 5130-0, 98221-1, 23298-7, 20221-1, 3357-1, 8092-9, 53368-3, 81642-8, 36491-4, 57499-9, 18876-0 #### [facility] ([id number]) [address], [address] [place] [address] SERUM PROTEIN ELECTROPHORESI Son 09-23-2023 Albumin [Mass/Vol] 2.5 g/dL Low 3.4-5.3 [facility] Comment on above: Performed By: #### C SHARATH, KELVIN, 1986-12, FEPR, 2276-4, 2284-8, 24448-9, 2132-9, 90354-4, 29617-8, 5130-0, 66982-7, 36161-9, 30631-0, 3357-1, 8092-9, 93777-2, 99107-6, 11828-1, 74381-8, 44983-7 #### [facility] ([id number]) [address], [address] [place] [address] ALPHA 1 GLOBULIN 0.6 g/dL High 0.1-0.4 [facility] Comment on above: Performed By: #### C SHARATH, [facility], 1986-12, FEPR, 6-4, 2284-8, 97082-3, 2132-9, 09273-5, 42443-9, 5130-0, 15696-7, 59665-7, 13261-0, 3357-1, 8092-9, 47842-7, 27998-9, 43399-9, 20633-0, 76466-3 #### [facility] ([id number]) [address], [address] [place] [address] ALPHA 2 GLOBULIN 1.2 g/dL High 0.4-1.1 [facility] Comment on above: Performed By: #### C SHARATH, [facility], 1986-12, FEPR, 6-4, 2284-8, 90686-5, 2132-9, 54296-1, 33047-4, 5130-0, 07996-3, 55916-9, 21967-3, 3357-1, 8092-9, 35568-1, 10628-3, 23069-6, 13218-6, 76551-2 #### [facility] ([id number]) [address], [address] [place] [address] BETA GLOBULIN 0.8 g/dL Normal 0.5-1.2 [facility] Comment on above: Performed By: #### C BCA, CMP, 1987-12, FEPR, 2276-4, 2284-8, 76501-4, 2132-9, 46399-5, 72256-4, 5130-0, 16966-3, 09994-0, 81182-9, 3357-1, 8092-9, 84040-6, 88991-5, 08652-8, 93981-0, 55828-6 #### [facility] ([id number]) [address], [address] [place] [address] GAMMA GLOBULIN 1.0 g/dL Normal 0.5-1.6 [facility] Comment on above: Performed By: #### C BCA, CMP, 1987-12, FEPR, 2276-4, 2284-8, 47944-8, 2132-9, 85845-5, 59984-9, 5130-0, 23940-7, 48442-8, 84752-5, 3357-1, 8092-9, 85682-3, 87130-9, 40612-5, 58638-7, 88938-5 #### [facility] ([id number]) [address], [address] [place] [address] PROT. ELECTROPHORESIS INTERP SEE SEPARATE REPORT Normal [facility] Comment on above: Performed By: #### C BCA, CMP, 1987-12, FEPR, 227-4, 2284-8, 35163-3, 2132-9, 07905-5, 58246-7, 5130-0, 85192-4, 90421-0, 57904-4, 3357-1, 8092-9, 47421-2, 86043-7, 98294-3, 77567-2, 92221-7 #### [facility] ([id number]) [address], [address] [place] [address] Protein [Mass/Vol] 6.1 g/dL Normal 6.0-8.0 [facility] Comment on above: Performed By: #### C SHARATH, CMP, 1987-12, FEPR, 2275-4, 4-8, 78109-3, 2131-9, 08850-8, 27469-4, 5130-0, 28911-2, 37626-0, 10717-6, 3357-1, 8092-9, 48269-4, 49077-8, 16949-8, 24830-5, 32155-1 #### [facility] ([id number]) [address], [address] [place] [address] SSA antibodyon 09-23-2023 Sjogrens syndrome-A extractable nuclear Ab Qn (S) [facility] Comment on above: CLIA ID [id number] SSB Antibodyon 09-23-2023 Sjogrens syndrome-B extractable nuclear IgG Qn (S) [facility] Comment on above: CLIA ID [id number] Scleroderma antibodyon 09-23 SCL-70 extractable nuclear Ab Ql (S) [facility] Comment on above: CLIA ID [id number] Sjogrens syndrome-A extracta ble nuclear Ab Qn (S)on 09-23-2023 SSA ANTIBODY <0.2 Normal <1.0 [facility] Comment on above: Performed By: #### C SHARATH, CMP, 1987-12, FEPR, 2275-4, 4-8, 30579-0, 2131-9, 37228-9, 34553-7, 5130-0, 82997-5, 21422-1, 91274-1, 3357-1, 8092-9, 46922-9, 01063-2, 30207-4, 14245-1, 67078-7 #### [facility] ([id number]) [address], [address] [place] [address] Sjogrens syndrome-B extracta ble nuclear IgG Qn (S)on 09-23-2023 SSB ANTIBODY <0.2 Normal <1.0 [facility] Comment on above: Performed By: #### C BCA, CMP, 1987-12, FEPR, 2276-4, 2284-8, 59634-7, 2132-9, 09220-6, 57045-5, 5130-0, 82762-5, 33096-8, 73775-0, 3357-1, 8092-9, 30341-8, 08967-4, 48829-3, 98148-2, 72209-1 #### [facility] ([id number]) [address], [address] [place] [address] Mejia extractable nuclear Ab +Ribonucleoprotein extractable nuclear IgG Qn (S)on 09-23-2023 MEJIA/TOOL [employer] PRODUCTION PLANNER AB IGG <0.2 Normal <1.0 [facility] Comment on above: Performed By: #### C BCA, CMP, 1987-12, FEPR, 2275-, 2283-8, 04792-6, 2-9, 94430-2, 60190-1, 5130-0, 53433-1, 03426-9, 29365-3, 3357-1, 8092-9, 56932-4, 54398-9, 02430-0, 19725-9, 08931-7 #### [facility] ([id number]) [address], [address] [place] [address] Mejia extractable nuclear Ig G Qn (S)on 09-23-2023 ANTI-MEJIA AB IGG <0.2 Normal <1.0 [facility] Comment on above: Performed By: #### C BCA, CMP, 1987-12, FEPR, 2275-4, 2284-8, 93601-2, 2132-9, 68135-5, 21248-5, 5130-0, 64452-8, 04158-6, 18353-3, 3357-1, 8092-9, 79757-4, 96825-9, 45470-8, 66606-9, 38935-6 #### [facility] ([id number]) [address], [address] [place] [address] Mejia/TOOL AND PRODUCTION PLANNER AB IgGon 4 Mejia extractable nuclear Ab+Ribonucleoprotein extractable nuclear IgG Qn (S) ROBINF [facility] Surgical Pathologyon 024 Surgical Pathology Normal [facility] Comment on above: Result Comment: [facility] [address] [place], [place] [address] Flow Cytometry Patient Name:JOSE DAVIDAccession #:[id number]. Rec. #:[id number]:[facility] HospitalTaken:4DOB:1945 (Age: 78)Location:[facility] GEN 8 ACUTE A999Pdwmkitn:09/23/2023Gender: FBill. Type:ToledoReported:Priority:RBilling #:[id number] Class:TTH Special Procedure OnlyPhysician(s): Charlene Chan MD [...] patterns of antigen expression are not seen. [place] on the lymphoid population demonstrates a mixed population of phenotypically unremarkable T-cells, natural killer cells, and polyclonal B-cells, without a detectable monoclonal population. Immunophenotyping antibodies tested: CD2, CD3, CD4, CD5, CD7, CD8, CD10, CD13, CD16, CD19, CD20, CD23, CD33, CD34, CD38, CD43, CD45, CD56, CD117, CD123, CD138, [place], and Lambda. Immunophenotyping Comment: Immunophenotyping has been used in this diagnostic evaluation. This test was developed and its performance characteristics determined by the [facility]. It has not [...] (Vitamin B12) [Mass/Vol] 248 pg/mL Normal 180-914 [facility] Comment on above: Performed By: #### C KELVIN EARLY, 1986-12, FEPR, 2276-4, 2284-8, 83357-0, 2132-9, 73734-2, 46024-6, 5130-0, 93330-2, 41949-3, 75768-3, 3357-1, 8092-9, 76570-4, 42326-4, 03216-9, 85012-2, 85745-5 #### [facility] ([id number]) [address] [place] [address], [address] [place] [address] Vitamin B12on 09-23-2023 Cobalamin (Vitamin B12) [Mass/Vol] 248 pg/mL 180 - 914 pg/mL [facility] dRVVT/dRVVT.excess phospholi pid Coag (PPP) [Ratio]on 09-23-2023 DILUTE KORI'S VIPER VENOM Negative Normal [facility] Comment on above: Performed By: #### C SHARATH, CMP, 1986-12, FEPR, 227-4, 2284-8, 42789-1, 2132-9, 23760-1, 64660-6, 5130-0, 09015-3, 58026-4, 09188-7, 3357-1, 8092-9, 97211-9, 67854-3, 90720-8, 08233-1, 47034-4 #### [facility] ([id number]) [address], [address] [place] [address] CT LESTER WO CONon 3 CT LESTER [...] by: SHANTELL GARCIA Date: 2022-12-25 08:22 Normal [facility] XR KNEE RT 4V or >on 022 [...] lateral and patellofemoral compartments where there is prhy-gb-livz contact. 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 Electronically authenticated by: KARAN JENKINS Date: 2022-04-25 19:06 Normal [facility] Patient Educationon 09-10-19 22 Patient Education Nutrition [...] height. This can be done either in [place]ovan (U.S[place] or metric measurements. Note that charts are available to help you find your BMI quickly and easily without having to do these calculations yourself. To calculate your BMI in Kos[place] ([place] measurements, your health care provider will: [...] problems. ? BMI can be measured using Kosovan measurements or metric measurements. ? To interpret [...] 04/22/2005 Document Revised: 07/24/2018 Document Reviewed: 06/24/2018 [employer] Patient Education ? 2020 [employer]. Obstetrics and Gynecology Overactive Bladder, Adult Overactive [...] A spina (more content not included)... Normal [facility] 09-10-2021 [facility] [id number] .[id number]:127 Normal [facility] [id number] .[id number]:127 Normal [facility] Urology Office/Clinic Noteon 09-10-2021 Urology [...] genitourinary system) Interesting patient still working at [employer] which came here the store when I [...] URL Within 1 year, only if needed [address] [place], [place] [id number] Additional Instructions: Patient Education BMI for Adults [...] Protein Urine Dipstick: Negative (09/10/21 08:26:00) Specific Tyro Urine Dipstick: 1.025 (09/10/21 08:26:00) Urine Appearance Urine Dipstick: Clear (09/10/21 08:26:00) Urine Color Urine Dipstick: Yellow (09/10/21 08:26:00) Urobilinogen Urine Dipstick: Normal 0.2-1 EU/dl (09/10/21 08:26:00) pH Urine Dipstick: 5 (09/10/21 08:26:00) Normal [facility] Comment on above: Result Comment: Elec tronically Signed By: DONY SENIOR, Gilbert Moore\.br\Date and Time Signed: 09/10/21 08:49 EST\.br\Electronically Co-Signed By: Aurora Hdz MA\.br\Date and Time Co-Signed: 09/10/21 08:46 EST Physician Orderon 09-07-2021 Physician Order [id number] .00CD:127 Normal [facility] Vital Signs Date Time Vital Sign Value Performing Clinician Lei santino 10-16-2023 11:040500 Body height 152.4 cm [facility] 10-16-2023 11:04-0500 Body mass index (BMI) [Ratio] 23.6 kg/m2 [facility] 10-16-2023 11:04-0500 Body weight 54.88 kg [facility] 10-16-2023 11:04-0500 Diastolic blood pressure 72 mm[Hg] [facility] 10-16-2023 11:04-0500 Heart rate 88 /min [facility] 10-16-2023 11:04-0500 SaO2% (BldA) [Mass fraction] 98 % [facility] 10-16-2023 11:04-0500 Systolic blood pressure 134 mm[Hg] [facility] 10-16-2023 09:50-0500 Diastolic blood pressure 74 mm[Hg] Mouna Bautista MD Work Phone: [facility] 10-16-2023 09:50-0500 Heart rate 72 /min Mouna Bautista MD Work Phone: [facility] 10-16-2023 09:50-0500 Systolic blood pressure 140 mm[Hg] Mouna Bautista MD Work Phone: [facility] 10-16-2023 09:49-0500 Body height 157.5 cm Mouna Bautista MD Work Phone: [facility] 10-16-2023 09:49-0500 Body mass index (BMI) [Ratio] 21.51 kg/m2 Mouna Bautista MD Work Phone: [facility] 10-16-2023 09:49-0500 Body weight 53.34 kg Mouna Bautista MD Work Phone: [facility] 10-16-2023 09:49-0500 Respiratory rate 18 /min Mouna Bautista MD Work Phone: [facility] 09-26-2023 15:31-0500 Body temperature 98.2 [degF] Bart Milian MD Work Phone: [facility] 09-26-2023 15:31-0500 Heart rate 103 /min Bart Milian MD Work Phone: [facility] 09-26-2023 15:31-0500 Respiratory rate 16 /min Bart Milian MD Work Phone: [facility] 09-26-2023 15:31-0500 SaO2% (BldA) [Mass fraction] 96 % [facility] 09-26-2023 07:20-0500 Diastolic blood pressure 84 mm[Hg] Bart Milian MD [facility] 09-26-2023 07:20-0500 Systolic blood pressure 152 mm[Hg] Bart Milian MD Work Phone: [facility] 09-24-2023 13:40-0500 Body height 157.5 cm Bart Milian MD Work Phone: [facility] 09-24-2023 13:40-0500 Body mass index (BMI) [Ratio] 21.21 kg/m2 Bart Milian MD Work Phone: [facility] 09-24-2023 13:40-0500 Body weight 52.6 kg Bart Milian MD Work Phone: [facility] Encounters Encounter Date Encounter Type Care Provider Facility Start: 10-17-2023 Telephone encounter [facility] Comment on above: Med Refill Start: 10-16-2023 End: 10-16-2023 ambulatory MOUNA BAUTISTA [facility] Work Phone: Start: 10-16-2023 End: 10-16-2023 Patient encounter procedure [facility] Work Phone: Start: 10-16-2023 End: 10-16-2023 Office outpatient visit 15 minutes Mouna Bautista MD Work Phone: [facility] Comment on above: Giant cell arteritis (CMS-HCC) (Primary Dx) Start: 09-29-2023 Telephone encounter [facility] Comment on above: Hospital Follow-up Start: 09-27-2023 End: 09-27-2023 Evaluation and management of inpatient RICKIE STEWART [facility] Start: 09-24-2023 End: 09-27-2023 Evaluation and management of inpatient RAYAN [facility] Start: 09-24-2023 ambulatory JOHN PATEL [facility] Start: 09-24-2023 End: 09-27-2023 Evaluation and management of inpatient CARLITOS GAYPREET ILYA [facility] Start: 09-23-2023 End: 09-26-2023 [facility] Start: 09-23-2023 End: 09-26-2023 Evaluation and management of inpatient Tono Pan MD Work Phone: [facility] - GEN 8 Acute Comment on above: B12 deficiency (Prim lisa Dx); Thrombocytosis; Vision blurred; Temporal arteritis ([facility]) Start: 03-24-2023 End: 03-25-2023 ambulatory Naomy Lujan MD Facility:[facility] Start: 03-10-2023 End: 03-11-2023 ambulatory [facility] Start: 03-03-2023 End: 03-04-2023 ambulatory Na[facility]na [facility] Start: 02-17-2023 End: 02-18-2023 ambulatory Naomy Lujan MD Facility:[facility] Start: 02-03-2023 End: 02-04-2023 [facility] Start: 01-24-2023 End: 01-25-2023 ambulatory [facility] Start: 12-25-2022 End: 12-25-[address] [...] r-t 2d w/wom-mode compl spec&colr d Trevin Lpóez MD Work Phone: Start: 09-24-2023 Basic metabolic pane l calcium total Goran Thomas MD Work Phone: Start: 09-24-2023 End: 09-24-2023 Mri brain brain stem w/o w/contrast material Carlitos Caraballo MD Work Phone: Start: 09-23-2023 Bcr/abl1 major break pnt qualitative/quantitative [place] Hinders [employer] Work Phone: Start: 09-23-2023 Antihuman globulin d irect each antiserum Elton Hinders [employer] Work Phone: Start: 09-23-2023 ANCA Trevin Sandhu [...] Work Phone: Start: 09-23-2023 Jak2 gene analysis [id number] variant Bart Milian MD Work Phone: Start: 09-23-2023 Antinuclear antibodies silvia Nandini Walters MD Work Phone: Start: 09-23-2023 Comprehensive metabo lic panel Nadnini Walters MD Work Phone: Start: 09-23-2023 Adult depression scr eening assessment Rosa Ovalles Start: 09-23-2023 PULSE OXIMETRY, SPOT Ra ni Selena SENIOR Work Phone: Plan of Treatment Date Care Activity Detail Author Start: 10-16-2024 Adult BMI Screening Adult BMI Screening [facility] Start: 10-16-2024 Tobacco Screening Tobacco Screening [facility] Start: 09-24-2024 Adult BMI Screening Adult BMI Screening [facility] Start: 09-24-2024 Tobacco Screening Tobacco Screening [facility] Start: 09-23-2024 Depression Screening Depression Screening [facility] Start: 01-15-2024 End: 01-15-2024 Patient encounter procedure 01/15/2024 11:00 AM EDT Office Visit [facility] [address] [place] [address] Mouna Bautista MD [address] [address] [facility] Start: 12-05-2023 End: 12-05-2023 Patient encounter procedure 12/05/2023 10:15 AM EDT Office Visit [facility] [place] [id number] Darci Santana MD [address] [place] [address] [facility] Start: 11-06-2023 End: 11-06-2023 Patient encounter procedure 11/06/2023 3:30 PM EDT Office Visit Adelaida Keane [facility] On[facility] [address] [place] [phone] Adam Anna MD [address] [place] [address] [address] [place] [id number] [address] [facility] Start: 10-16-2023 End: 10-16-2023 Patient encounter procedure 10/16/2023 9:10 AM EST Office Visit [facility] [address] [place] [address] Mouna Bautista MD [address], [address] [address] [facility] Start: 04-25-2023 Influenza vaccination [facility] Start: 2011 Fall Risk Screening Fall Risk [facility]ening [facility] Start: 1996 Administration of varicella zoster vaccine Zoster (Shingles) Vaccine (1 of 2) [facility] Start: 1965 DTaP,Tdap and Td Vaccines (1 - Tdap) DTaP,Tdap and Td Vaccines (1 - Tdap) [facility] Start: 1945 Medicare Annual Wellness Visit Medicare Annual Wellness Visit [facility] End: 09-26-2024 Basic metabolic 2000 panel - Serum or Plasma Basic Metabolic Panel Lab Routine Vision blurred 1 Occurrences starting 09/26/2023 until 09/26/2024 [facility] Comment on above: 1 Occurrences starting 09/26/2023 until 09/26/2024 End: 09-26-2024 CBC W Auto Differential panel - Blood CBC auto differential Lab Routine Thrombocytosis 1 Occurrences starting 09/26/2023 until 09/26/2024 [facility] Comment on above: 1 Occurrences starting 09/26/2023 until 09/26/2024 End: 09-23-2023 Flow cytometry blood only [employer] Phone: Comment on above: Once for 1 Occurrences starting 09/23/19 24 until 09/23/2023 Immunoelectrophoresi s for Therapy Monitoring Immunoelectrophoresis for Therapy Monitoring Lab Routine 09/23/2023 12:56 PM EST [employer] Work Phone: Methylmalonate [Moles/volume] in Serum or Plasma Methylmalonic acid screen Lab Routine 09/23/2023 12:57 PM EST [employer] End: 09-23-2023 Methylmalonic acid screen Methylmalonic acid screen Lab Routine Once for 1 Occurrences starting 09/23/2023 until 09/23/2023 [employer] Work Phone: Comment on above: Once for 1 Occurrences starting 09/23/19 until 09/23/2023 Protein electrophore sis, serum Protein electrophoresis, serum Lab Routine 09/23/2023 12:56 PM EST [employer] Payers Date Payer Category Payer Medicare [id number] 2022 Medicare 2016 Private Health Insurance [id number] 1959 Medicare [id number] 1945 Unknown [id number] 2.16.84 0.1.479697.3.579.2.593 1945 Unknown [id number] 2.16.84 0.1.129860.3.579.2.593 1946 Unknown [id number] 2.16. 840.1.967324.3.579.2.196 1945 Unknown [id number] 2.16. 840.1.283472.3.579.2.196 1946 Unknown [id number] 2.16. 840.1.039442.3.579.2.196 1946 Unknown [id number] 2.16. 840.1.484990.3.579.2.196 1946 Unknown [id number] 2.16. 840.1.950049.3.579.2.196 1946 Unknown [id number] 2.16. 840.1.118121.3.579.2.196 1946 Unknown [id number] 2.16.8 40.1.488292.3.579.2.1286 1946 Unknown [id number] 2.16.8 40.1.442808.3.579.2.1286 1946 Unknown [id number] 2.16.8 40.1.513915.3.579.2.1286 1946 Unknown [id number] 2.16.8 40.1.258380.3.579.2.1286 1946 Unknown [id number] 2.16.8 40.1.283291.3.579.2.1286 1946 Unknown [id number] 2.16.8 40.1.049109.3.579.2.1286 1946 Unknown [id number] 2.16.8 40.1.318735.3.579.2.1286 1946 Unknown [id number] 2.16.8 40.1.775646.3.579.2.1286 1946 Unknown [id number] 2.16.8 40.1.599971.3.579.2.1286 1946 Unknown [id number] 2.16.8 40.1.952035.3.579.2.1286 1946 Unknown [id number] 2.16.8 40.1.830025.3.579.2.1286 1946 Unknown [id number] 2.16.8 40.1.751943.3.579.2.1286 Self-pay Self Pay [id number] Social History Date Type Detail Facility Start: 09-23-2023 Tobacco smoking stat [facility] Never smoked tobacco [facility] Start: 09-23-2023 Tobacco use and exposure Smoke less tobacco non-user [facility] Start: 09-25-2023 End: 10-16-2023 Alcohol intake Lifetime non-drinker (finding) [facility] Start: 10-05-2020 End: 09-23-2023 History of Social function [facility] Start: 10-05-2020 End: 09-23-2023 Alcohol Use Disorder Identification Test - Consumption [AUDIT-C] [facility] How often to you hav e a drink containing alcohol? Never [facility] How many standard dr inks containing alcohol do you have on a typical day? Patient does not drink [facility] Start: 1945 Sex Assigned At Not on file P [employer] [facility] Start: 10-16-2023 Tobacco smoking stat us NHIS Ex-smoker (finding) [facility] Start: 1945 Sex Assigned At Female F [facility] Goals Date Patient Goal Desired Activity /State [...] or 90 day supply preferred:30 Pharmacy Name: [id number] - [place], [place] - If already [...] have to fill. [facility] Telephone encounter Note Patients Malinda cuadra [...] pharmacy - specify address & phone number [facility] Telephone encounter Note I have attempted to contact this patient by phone with the following results: left detailed message regarding that since patient has not been seen in clinic PCP or the provider that prescribed medication will have to fill. [employer] 10-16-2023 History of Present illness Narrative Images from the original note were not included. [facility] [address] [facility] [id number] Subjective: Patient ID: Jose David is a [...] Vision blurred Stroke-like symptoms Giant cell arteritis ([facility]) Current Outpatient Medications: acetaminophen (TYLENOL EXTRA STRENGTH) [...] orders for this visit: Giant cell arteritis ([facility]) Plan Plan: Referral to rheumatology for management of temporal arteritis. Continue steroids in the meanwhile Mouna Bautista MD documented in this encounter [employer] 09-29-2023 Miscellaneous Notes Please ask the following [...] OPINION? - Patient saw Dr. Byrne at [facility] Hospital Visit 09/23-08/26/2023 5. PATIENT IS SCHEDULED ON/WITH: - 12/05/2023 at 10:[address] Santana documented [facility]-2023 Telephone encounter Note Please ask the [...] OPINION? - Patient saw Dr. Byrne at [facility] Hospital Visit 09/23-08/26/2023 5. PATIENT IS SCHEDULED ON/WITH: - 12/05/2023 at 10:[address] Santana [facility] 09-26-2023 Nurse Note Patient alert and oriented. IV and telemetry discontinued. All discharge instructions have been reviewed and are understood by the patient and daughter. Patient left the unit via wheelchair with all of their belongings and in no distress. Patient discharged home. [facility] 09-26-2023 Nurse Note Patient alert and oriented. IV and telemetry discontinued. All discharge instructions have been reviewed and are understood by the patient and daughter. Patient left the unit via wheelchair with all of their belongings and in no distress. Patient discharged home. documented in this encounter [facility] 09-26-2023 Hospital course Narrative Images from the original note were not included. [facility] Medicine Discharge Summary Patient's [...] of the discharge: peripheral smear, flow cytometry, [facility] Hospital Course Jose Davidson a 78 y.o.female with no significant past medical history, she presented to the hospital with bilateral vision loss. Patient started to notice blurry vision in her left eye 09/19, she was evaluated by Ophthalmology outpatient who referred her to eye center in [place]. Over the weekend her left eye vision significantly deteriorated to a point where she could no longer see. On 09/22, she started developing vision loss in her right eye. She visited the eye center who sent her to ER right away. Patient initially presented to the [facility] ER, she was given Solu-Medrol 250 mg IV once and transferred to [facility] for further workup. Patient was evaluated [...] Your Medications These medications were sent to [facility]/pharmacy #[id number] AT [place] [id number] aspirin 81 mg cyanocobalamin 1000 MCG tablet [...] Diet: Adult diet Regular Texture Adult diet [address] [address] Schedule an appointment as soon as possible for a visit in 1 week(s) Jt Jasso MD [address] [facility] [address] [facility] Rheumatology [facility] [phone] Schedule an appointment as soon as possible for a visit in 2 week(s) Joni Pizano MD [address], [place] [address] [facility] [address] Schedule an appointment as soon as possible for a visit in 2 week(s) Sandy Pizano MD [address] [facility], [address] [facility] [phone] Schedule an appointment as soon as possible for a visit in 1 month(s) Montana Bartlett MD [address] [facility] [phone] Schedule an appointment as soon as possible [...] questions. Electronically signed by: BART MILIAN MD [facility], Department of Internal Medicine 09/26/23 1:16 PM documented in this encounter [facility] 09-26-2023 Hospital Discharge instructions Bart Milian MD - 09/26/2023 1:15 PM EST You are started on Aspirin to reduce watermaster risk of vascular complications with you suspected condition (giant cell arteritis) also it will help with preventing thrombosis (clotting) given your Thrombocytosis (elevated platelet count). Please discuss any concerns with your primary care provider, storage facility housekeeper or audit associate Discuss with primary care or storage facility housekeeper DEXA scan as you are expected to be on steroid medications for prolonged period of time (up to 6 months). Log term steroids can cause Osteoporosis. The following attachments cannot be sent through Care Everywhere.Polymyalgia rheumatica and giant cell arteritis ([place])documented in this encounter [facility] 09-26-2023 History of Present illness Narrative Images from the original note were not included. [facility] Rheumatology PROGRESS NOTE DATE OF ADMISSION 09/23/2023 12:25 AM REASON FOR CONSULTATION: Acute B/L sudden painless vision loss concerning for B/l [facility] REFERRING PHYSICIAN: Goran Thomas MD PCP JOHN PATEL, ASSESSMENT AND PLAN: B/L vision loss likely 2/2 [facility] -Pt's initial symptoms were blur vision in L eye but unfortunately when she presented to [facility] she had complete vision loss in both [...] SSA, SSB, scleroderma antibody, Tiki 1, Mejia, [employer]OL [employer] PRODUCTION PLANNER, anti dsDNA, anti chromatin were negative. -No [...] no significant past medical history presented to [facility] 09/24 for concerns of vision loss in left eye. Patient was evaluated by trade show specialist on 09/19/2023 due to blurry vision left [...] concerns of giant cell arteritis. Initially at [facility] she was given Solu-Medrol 250 mg IV 1 dose and then transferred to [facility]. On presenting to [facility], she had complete vision loss in both eyes. She was started on IV Solu-Medrol 1000 mg for 3 days. She underwent bilateral temporal artery biopsy on 09/25/2023. During this admission she had workup done which showed positive SILVIA screen, mildly elevated rheumatoid factor at 21 and elevated anticentromere antibody. Anca ribosomal antibody, SSA, SSB, scleroderma antibody, Tiki 1, Mejia, [employer]OL AND PRODUCTION PLANNER, anti dsDNA, anti chromatin were negative. PAST MEDICAL HISTORY: History reviewed. No pertinent past medical history. PAST SURGICAL HISTORY: Past Surgical History: Procedure Laterality Date APPENDECTOMY BIOPSY ARTERY TEMPORAL Bilateral 09/25/2023 Performed by Kristel Reid MD at [facility] TONSILLECTOMY TUBAL LIGATION ALLERGIES: Allergies Allergen [...] of the major arterial structures in the [place]. The paranasal sinuses are clear. [...] of the major arterial structures in the [place]. The paranasal sinuses are clear. [...] from the original note were not included. [facility] [place] [facility] Progress Note Subjective: Status post [...] breakfast sodium chloride, 3 mL, intravenous, Q12H [facility] sulfamethoxazole-trimethoprim, 1 tablet, oral, Once [...] plan of care Jose De León MD,MD [facility] 11:24 AM 09/26/2023 Images from the original note were not included. [facility] Hospitalists Progress Note 09/25/2023 Patient Name: [...] 09/25/2023 Performed by Kristel Reid MD at [facility] TONSILLECTOMY TUBAL LIGATION OBJECTIVE Vital Signs: [...] presents to the emergency department from her family law specialist's office. She was being evaluated with an family law specialist for possible giant cell arthritis. She said [...] from the original note were not included. [facility] Neurology General Neurology Consultation Note Consult Neurology Service: [phone] Primary Team: [facility] Chief Complaint and Reason for Consultation: [...] was given referral to eye center in [place]?, on Friday and Friday, vision on the left eye worsened significantly and she lost her vision on the left eye. On Friday 09/22, patient came to [place] to see an eye doctor, who asked her to go to the ED. patient initially went to [facility], given Solu-Medrol 250 mg IV once, transferred to [facility] for further workup and ophthalmology evaluation. According to the patient, her right eye vision worsened significantly on Friday, and she lost her vision on both eyes. Patient had no past medical history, she has not taking any scheduled medications, patient lives with her daughter, she is driving and working. Walking with no assistive devices. Upon initial assessment in [facility], patient had complete vision loss on [...] CTH, head and neck CTA done at [facility], reportedly unremarkable Impression: Binocular vision loss concerning [...] to Friday 12-1:00 p.m. Primary Neurology service: [phone] Consult neurology service: [phone] Resident Stroke Service: [phone] If the patient belongs to the Stroke [...] from the original note were not included. [facility] Progress Note 09/24/2023 Patient [...] IgG 992 635 - 1,741 mg/dL Free [place] Lt Chains 2.91 (H) 0.33 - 1.94 [...] 2:00 PM Result Value Ref Range Polyspecific HENRYR Negative CBC auto differential Collection Time: 09/24/23 [...] of the major arterial structures in the [place]. The paranasal sinuses are clear. [...] of the major arterial structures in the [place]. The paranasal sinuses are clear. [...] from the original note were not included. [facility] Neurology General Neurology Consultation Note Consult Neurology Service: [phone] Primary Team: [facility] Chief Complaint and Reason for Consultation: [...] was given referral to eye center in [facility], on Friday and Friday, vision on the left eye worsened significantly and she lost her vision on the left eye. On Friday 09/22, patient came to [place] to see an eye doctor, who asked her to go to the ED. patient initially went to [facility], given Solu-Medrol 250 mg IV once, transferred to [facility] for further workup and ophthalmology evaluation. According to the patient, her right eye vision worsened significantly on Friday, and she lost her vision on both eyes. Patient had no past medical history, she has not taking any scheduled medications, patient lives with her daughter, she is driving and working. Walking with no assistive devices. Upon initial assessment in [facility], patient had complete vision loss on [...] CTH, head and neck CTA done at [facility], reportedly unremarkable Impression: Binocular vision loss concerning [...] to Friday 12-1:00 p.m. Primary Neurology service: [phone] Consult neurology service: [phone] Resident Stroke Service: [phone] If the patient belongs to the Stroke [...] from the original note were not included. [facility] Progress Note 09/23/2023 Patient [...] correct any mistakes. documented in this encounter [facility] 09-26-2023 Progress note Formatting of t [...] - Sophia Rajan RN 09/26/23 11:05 AM [employer] 09-26-2023 Miscellaneous Notes Images from the original [...] at the bedside 7. Instruct patient/ patient jewelry sales representative about use of safety devices 8. Include patient/ patient jewelry sales representative in decisions related to safety Note: Evaluation of progress towards goal: No reports of injury during shift. Safety measures in place Problem: Low Risk Fall Score Description: Clifford Fall Score of 0 - 24 or [facility] Goal: Patient should be free from fall Description: Interventions: 1. [place] to environment 2. Hourly rounds addressing the [...] non-skid footwear 11. Teach patient and patient jewelry sales representative to maintain environment for safety [...] Description: INTERVENTIONS: 1. Encourage patient or legal jewelry sales representative to report early pain and [...] per policy 9. Teach patient or legal jewelry sales representative interventions for comforting Outcome: Progressing [...] at the bedside 7. Instruct patient/ patient jewelry sales representative about use of safety devices 8. Include patient/ patient jewelry sales representative in decisions related to safety [...] hygiene technique 7. Identify and instruct patient/patient jewelry sales representative in use of appropriate isolation precautions for identified infection/symptoms 8. Provide and discuss with patient/patient jewelry sales representative on educational MDRO sheet 9. Encourage and monitor nutritional status daily and consult dental resident if indicated 10. Implement neutropenic guidelines as needed 11. Review exposure to history of communicable disease and recent travel history on admission 12. Encourage annual influenza vaccine 13. Encourage pneumonia vaccine Outcome: Progressing Note: Evaluation of progress towards goal: Patient free from signs of infection. Afebrile. Continue to Monitor. Problem: Knowledge Deficit Goal: Patient/patient jewelry sales representative demonstrates understanding of disease process, [...] be free from fall Description: Interventions: 1. [place] to environment 2. Hourly rounds addressing the [...] non-skid footwear 11. Teach patient and patient jewelry sales representative to maintain environment for safety and engage in all aspects of fall prevention program Outcome: Progressing Note: Evaluation of progress towards goal: Patient free from falls and injury. Continue to monitor. Problem: Moderate - High Risk Fall Score Description: Clifford Fall Score of =/> 25 or indicated by [facility] Assessment Goal: Patient should be free from fall Description: Interventions: 1. [place] to environment 2. Hourly rounds addressing the [...] non-skid footwear 11. Teach patient and patient jewelry sales representative to maintain environment for safety [...] (cane, walker) within reach 19. Request patient jewelry sales representative bring adaptive equipment/mobility aids from home or obtain and provide as needed 20. Consult pharmacy regarding effects of med's affecting mobility, cognition, and alternatives 21. Obtain physician order for PT if risk factors associated with mobility are present 22. Obtain physician order for OT as appropriate 23. Utilize diversional activities 24. Educate patient and patient jewelry sales representative how to maintain a safe environment during visitation times (notify nurse prior to leaving bedside) 25. Consider appropriateness of medical or non-medical scientific liaison 26. Set up voiding schedule as appropriate [...] days ago. She was evaluated by her family law specialist who felt that vision loss was secondary [...] hemodynamically stable. Condition: stable Kristel Reid MD [facility] Vascular Surgery Problem: Low Risk Fall Score Description: Clifford Fall Score of 0 - 24 or [facility] by [facility] Goal: Patient should be free from fall Description: Interventions: 1. [place] to environment 2. Hourly rounds addressing the [...] non-skid footwear 11. Teach patient and patient jewelry sales representative to maintain environment for safety [...] Description: INTERVENTIONS: 1. Encourage patient or legal jewelry sales representative to report early pain and [...] per policy 9. Teach patient or legal jewelry sales representative interventions for comforting Outcome: Progressing [...] at the bedside 7. Instruct patient/ patient jewelry sales representative about use of safety devices 8. Include patient/ patient jewelry sales representative in decisions related to safety [...] hygiene technique 7. Identify and instruct patient/patient jewelry sales representative in use of appropriate isolation precautions for identified infection/symptoms 8. Provide and discuss with patient/patient jewelry sales representative on educational MDRO sheet 9. Encourage and monitor nutritional status daily and consult dental resident if indicated 10. Implement neutropenic guidelines as needed 11. Review exposure to history of communicable disease and recent travel history on admission 12. Encourage annual influenza vaccine 13. Encourage pneumonia vaccine Outcome: Progressing Note: Evaluation of progress towards goal: Patient afebrile, Monitoring labs. Problem: Knowledge Deficit Goal: Patient/patient jewelry sales representative demonstrates understanding of disease process, [...] Description: INTERVENTIONS: 1. Encourage patient or legal jewelry sales representative to report early pain and [...] per policy 9. Teach patient or legal jewelry sales representative interventions for comforting Outcome: Progressing [...] at the bedside 7. Instruct patient/ patient jewelry sales representative about use of safety devices 8. Include patient/ patient jewelry sales representative in decisions related to safety [...] hygiene technique 7. Identify and instruct patient/patient jewelry sales representative in use of appropriate isolation precautions for identified infection/symptoms 8. Provide and discuss with patient/patient jewelry sales representative on educational MDRO sheet 9. Encourage and monitor nutritional status daily and consult dental resident if indicated 10. Implement neutropenic guidelines as [...] Description: INTERVENTIONS: 1. Encourage patient or legal jewelry sales representative to report early pain and [...] per policy 9. Teach patient or legal jewelry sales representative interventions for comforting Outcome: Progressing [...] at the bedside 7. Instruct patient/ patient jewelry sales representative about use of safety devices 8. Include patient/ patient jewelry sales representative in decisions related to safety [...] hygiene technique 7. Identify and instruct patient/patient jewelry sales representative in use of appropriate isolation precautions for identified infection/symptoms 8. Provide and discuss with patient/patient jewelry sales representative on educational MDRO sheet 9. Encourage and monitor nutritional status daily and consult dental resident if indicated 10. Implement neutropenic guidelines as needed 11. Review exposure to history of communicable disease and recent travel history on admission 12. Encourage annual influenza vaccine 13. Encourage pneumonia vaccine Outcome: Progressing Note: Evaluation of progress towards goal: Patient receiving antibiotics as ordered. Continue to monitor. Problem: Knowledge Deficit Goal: Patient/patient jewelry sales representative demonstrates understanding of disease process, [...] of 0 - 24 or indicated by [facility] Assessment Goal: Patient should be free from fall Description: Interventions: 1. [place] to environment 2. Hourly rounds addressing the [...] non-skid footwear 11. Teach patient and patient jewelry sales representative to maintain environment for safety [...] at the bedside 7. Instruct patient/ patient jewelry sales representative about use of safety devices 8. Include patient/ patient jewelry sales representative in decisions related to safety [...] hygiene technique 7. Identify and instruct patient/patient jewelry sales representative in use of appropriate isolation precautions for identified infection/symptoms 8. Provide and discuss with patient/patient jewelry sales representative on educational MDRO sheet 9. Encourage and monitor nutritional status daily and consult dental resident if indicated 10. Implement neutropenic guidelines as [...] be free from fall Description: Interventions: 1. [place] to environment 2. Hourly rounds addressing the [...] non-skid footwear 11. Teach patient and patient jewelry sales representative to maintain environment for safety and engage in all aspects of fall prevention program Outcome: Progressing Note: Evaluation of progress towards goal: Patient remained free from falls. Will continue to utilized fall prevention measures. [facility] Plan of care note Problem: Safety [...] at the bedside 7. Instruct patient/ patient jewelry sales representative about use of safety devices 8. Include patient/ patient jewelry sales representative in decisions related to safety Note: Evaluation of progress towards goal: No reports of injury during shift. [facility] of care note Problem: Low Risk Fall Score Description: Clifford Fall Score of 0 - 24 or indicated by [facility] Assessment Goal: Patient should be free from fall Description: Interventions: 1. [place] to environment 2. Hourly rounds addressing the [...] non-skid footwear 11. Teach patient and patient jewelry sales representative to maintain environment for safety and engage in all aspects of fall prevention program Outcome: Progressing Note: Evaluation of progress towards goal: Patient remained free from falls. Will continue to utilized fall prevention measures. [facility] [employer] 09-25-2023 Progress note Formatting of t his [...] - Sophia Rajan RN 09/25/23 1:09 PM [facility] [employer] 09-25-2023 Plan of care note Problem: Pain Goal: Patient goal is pain score less than 4, able to rest, and participant in treatment plan as appropriate Description: INTERVENTIONS: 1. Encourage patient or legal jewelry sales representative to report early pain and [...] per policy 9. Teach patient or legal jewelry sales representative interventions for comforting Outcome: Progressing [...] at the bedside 7. Instruct patient/ patient jewelry sales representative about use of safety devices 8. Include patient/ patient jewelry sales representative in decisions related to safety [...] hygiene technique 7. Identify and instruct patient/patient jewelry sales representative in use of appropriate isolation precautions for identified infection/symptoms 8. Provide and discuss with patient/patient jewelry sales representative on educational MDRO sheet 9. Encourage and monitor nutritional status daily and consult dental resident if indicated 10. Implement neutropenic guidelines as needed 11. Review exposure to history of communicable disease and recent travel history on admission 12. Encourage annual influenza vaccine 13. Encourage pneumonia vaccine Outcome: Progressing Note: Evaluation of progress towards goal: Patient free from signs of infection. Afebrile. Continue to Monitor. Problem: Knowledge Deficit Goal: Patient/patient jewelry sales representative demonstrates understanding of disease process, [...] of 0 - 24 or indicated by [facility] Assessment Goal: Patient should be free from fall Description: Interventions: 1. [place] to environment 2. Hourly rounds addressing the [...] non-skid footwear 11. Teach patient and patient jewelry sales representative to maintain environment for safety and engage in all aspects of fall prevention program Outcome: Progressing Note: Evaluation of progress towards goal: Patient free from falls and injury. Continue to monitor. Problem: Moderate - High Risk Fall Score Description: Clifford Fall Score of =/> 25 or indicated by [facility] Assessment Goal: Patient should be free from fall Description: Interventions: 1. [place] to environment 2. Hourly rounds addressing the [...] non-skid footwear 11. Teach patient and patient jewelry sales representative to maintain environment for safety [...] (cane, walker) within reach 19. Request patient jewelry sales representative bring adaptive equipment/mobility aids from home or obtain and provide as needed 20. Consult pharmacy regarding effects of med's affecting mobility, cognition, and alternatives 21. Obtain physician order for PT if risk factors associated with mobility are present 22. Obtain physician order for OT as appropriate 23. Utilize diversional activities 24. Educate patient and patient jewelry sales representative how to maintain a safe environment during visitation times (notify nurse prior to leaving bedside) 25. Consider appropriateness of medical or non-medical scientific liaison 26. Set up voiding schedule as appropriate (every 2 hours) Outcome: Progressing Note: Evaluation of progress towards goal: Patient free from falls and injury. Continue to monitor. [facility] [employer] 09-25-2023 Consult note Associated Order (s): IP CONSULT TO RHEUMATOLOGY Images from the original note were not included. [facility] Rheumatology CONSULT NOTE DATE OF ADMISSION 09/23/2023 12:25 AM REASON FOR CONSULTATION: Acute B/L sudden painless vision loss concerning for B/l [facility] REFERRING PHYSICIAN: Goran Thomas MD PCP JOHN PATEL DO ASSESSMENT AND PLAN: B/L vision loss likely 2/2 [facility] -Pt's initial symptoms were blur vision in L eye but unfortunately when she presented to [facility] she had complete vision loss in both [...] SSA, SSB, scleroderma antibody, Tiki 1, Mejia, TOOL AND PRODUCTION PLANNER, anti dsDNA, anti chromatin were negative. -No concern for RA or scleroderma given lack of clinical symptoms Discussed with attending Dr. Romero Shah PGY-5, Rheumatology CHIEF COMPLAINT: Visual loss HISTORY OF PRESENT ILLNESS: Jose David is a 78 y.o. White or female who presents with no significant past medical history presented to [facility] 09/24 for concerns of vision loss in left eye. Patient was evaluated by trade show specialist on 09/19/2023 due to blurry vision left [...] concerns of giant cell arteritis. Initially at [facility] she was given Solu-Medrol 250 mg IV 1 dose and then transferred to [facility]. On presenting to [facility], she had complete vision loss in both eyes. She was started on IV Solu-Medrol 1000 mg for 3 days. She underwent bilateral temporal artery biopsy on 09/25/2023. During this admission she had workup done which showed positive SILVIA screen, mildly elevated rheumatoid factor at 21 and elevated anticentromere antibody. Anca ribosomal antibody, SSA, SSB, scleroderma antibody, Tiki 1, Mejia, TOOL AND PRODUCTION PLANNER, anti dsDNA, anti chromatin were negative. PAST [...] of the major arterial structures in the [place]. The paranasal sinuses are clear. [...] of the major arterial structures in the [place]. The paranasal sinuses are clear. [...] IgG 992 635 - 1,741 mg/dL Free [place] Lt Chains 2.91 (H) 0.33 - 1.94 [...] I agree with the assessment and plan. [facility] 09-25-2023 Consult note Associated Order (s): IP CONSULT TO RHEUMATOLOGY Images from the original note were not included. [facility] Rheumatology CONSULT NOTE DATE OF ADMISSION 09/23/2023 12:25 AM REASON FOR CONSULTATION: Acute B/L sudden painless vision loss concerning for B/l [facility] REFERRING PHYSICIAN: Goran Thomas MD PCP JOHN PATEL DO ASSESSMENT AND PLAN: B/L vision loss likely 2/2 [facility] -Pt's initial symptoms were blur vision in L eye but unfortunately when she presented to [facility] she had complete vision loss in both [...] SSA, SSB, scleroderma antibody, Tiki 1, Mejia, TOOL AND PRODUCTION PLANNER, anti dsDNA, anti chromatin were negative. -No concern for RA or scleroderma given lack of clinical symptoms Discussed with attending Dr. Romero Shah PGY-5, Rheumatology CHIEF COMPLAINT: Visual loss HISTORY OF PRESENT ILLNESS: Jose David is a 78 y.o. White or female who presents with no significant past medical history presented to [facility] 09/24 for concerns of vision loss in left eye. Patient was evaluated by trade show specialist on 09/19/2023 due to blurry vision left [...] concerns of giant cell arteritis. Initially at [facility] she was given Solu-Medrol 250 mg IV 1 dose and then transferred to [facility]. On presenting to [facility], she had complete vision loss in both eyes. She was started on IV Solu-Medrol 1000 mg for 3 days. She underwent bilateral temporal artery biopsy on 09/25/2023. During this admission she had workup done which showed positive SILVIA screen, mildly elevated rheumatoid factor at 21 and elevated anticentromere antibody. Anca ribosomal antibody, SSA, SSB, scleroderma antibody, Tiki 1, Mejia, TOOL AND PRODUCTION PLANNER, anti dsDNA, anti chromatin were negative. PAST [...] of the major arterial structures in the [place]. The paranasal sinuses are clear. [...] of the major arterial structures in the [place]. The paranasal sinuses are clear. [...] IgG 992 635 - 1,741 mg/dL Free [place] Lt Chains 2.91 (H) 0.33 - 1.94 [...] presents to the emergency department from her family law specialist's office. She was being evaluated with an family law specialist for possible giant cell arthritis. She said [...] questions or concerns regarding management. ALANNA Guzman [facility] [place] Office/After hours: [phone] ALANNA Guzman 09/24/23 1521 Associated Order(s): IP CONSULT TO SPIRITUAL CARE Summary: Spiritual Care Consult for Advance Directive Assistance Spiritual Care Consult for Advance Directive Assistance Advance Directive: Hospital Aides And Assistants Teacher provided patient with education on the need for advance directives and a copy of the [place] Advance Directive packet. Hospital Aides And Assistants Teacher assisted patient in completing the advance directives. Patient completed and signed a healthcare power of tax associate attorney. Patient was given the original and a copy. One copy placed in patient's chart. A extension edger is available 17/03 to offer spiritual and emotional support and may be reached through the [facility] automatic oven operator at [phone]. Associated Order(s): IP CONSULT TO OPHTHALMOLOGY Date: Reason for consult: I have been asked to evaluate the eyes of this 78-year-old lady who noticed sudden onset of foggy in the left eye 4 days ago this rapidly progressed to complete loss of vision in the left eye.. She saw an trade show specialist who indicated to her that she had [...] the patient was given a referral to family law specialist. Over the weekend patients vision in left eye continued to worsen and eventually lost all vision in left eye. Patient was seen by family law specialist 09/22/2023 and time she would decreased vision also in her right eye. It was recommended that she go straight to the emergency department, for concern for giant cell arteritis. Initially she went to [facility] where they gave her Solu-Medrol 250 mg IV 1 dose and then transferred her to [facility]. 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 Caitie Wilder PA-C [facility] [address] [place] [address] September 23, 2023, 10:20 AM Please note that portions of this note were generated using voice recognition [employer] dictation software. Although every effort was made to ensure the accuracy of this automated block chopper hand, some errors in block chopper hand may have occurred. I have personally performed [...] need to start aspirin Joni PIZANO M.D. [facility] Day time contact: After hours answering service: [phone] [place] [address] Associated Order(s): IP CONSULT TO NEUROLOGY Images from the original note were not included. [facility] Neurology General Neurology Consultation Note Consult Neurology Service: [phone] Primary Team: SAMUEL Chief Complaint and Reason [...] was given referral to eye center in [facility], on Friday and Friday, vision on the left eye worsened significantly and she lost her vision on the left eye. On Friday 09/22, patient came to [place] to see an eye doctor, who asked her to go to the ED. patient initially went to [facility], given Solu-Medrol 250 mg IV once, transferred to [facility] for further workup and ophthalmology evaluation. According to the patient, her right eye vision worsened significantly on Friday, and she lost her vision on both eyes. Patient had no past medical history, she has not taking any scheduled medications, patient lives with her daughter, she is driving and working. Walking with no assistive devices. Upon initial assessment in [facility], patient had complete vision loss on [...] Reportedly ESR and CRP were elevated at [facility] Imaging: CTH, head and neck CTA done at [facility], reportedly unremarkable Other Testing: None Assessment: Jose [...] follow Carlitos Caraballo MD PGY-3, Neurology Resident [facility] Staffed with: (Dr. Byrne) This patient is being followed by the Neurology Resident service. Contact attending directly during these hours: Friday to 7:30-8:30 A.M. to Friday 12-1:00 p.m. Primary Neurology service: [phone] Consult neurology service: [phone] Resident Stroke Service: [phone] If the patient belongs to the Stroke [...] Pizano MD, PhD documented in this encounter [facility] 09-25-2023 Procedure note Operative Note Date: [...] days ago. She was evaluated by her family law specialist who felt that vision loss was secondary [...] hemodynamically stable. Condition: stable Kristel Reid MD [facility] 09-25-2023 Attending History and physical note HISTORY AND PHYSICAL INTERVAL NOTE: Jose Pierson [place] 1945 [id number] H&P reviewed. The patient was examined and there are no changes to the H&P. Kristel Reid MD Source Note - Faisal Rascon DAYCARE PROVIDER-BONE GRINDER - 09/24/2023 10:37 AM EST Images from the original note were not included. Vascular History and Physical Examination/Consultation Note Reason for Consultation Bilateral temporal artery biopsy, concern for giant cell arteritis History and Present Illness Jose David is a 78 y.o. White or female who presents to the emergency department from her family law specialist's office. She was being evaluated with an family law specialist for possible giant cell arthritis. She said [...] or concerns regarding management. Faisal Rascon APRN-RIVKA [facility] [place] Office/After hours: [phone] ALANNA Guzman 09/24/23 1521 ALANNA Guzman 09/25/23 0730 [employer] 09-25-2023 History and physical note HISTORY AND PHYSICAL INTERVAL NOTE: Jose David 1945 [id number] H&P reviewed. The patient was examined and [...] presents to the emergency department from her family law specialist's office. She was being evaluated with an family law specialist for possible giant cell arthritis. She said [...] questions or concerns regarding management. ALANNA Guzman [facility] [place] Office/After hours: [phone] ALANNA Guzman 09/24/23 1521 ALANNA Guzman 09/25/23 0730 Images from the original note were not included. [facility] History and Physical 09/23/2023 [...] on ophthalmology recommendation, patient saw Ophthalmology in [place] today evaluated for possible giant cell arthritis, [...] pedis pulses present and equal bilaterally Skin: [place], warm, dry; no rashes or lesions Neurologic: [...] Electronically signed by: MD Nandini PAREDES M.D. [facility] This note was completed using a voice block chopper hand system. Every effort was made to ensure accuracy. However, inadvertent computerized block chopper hand errors may be present. documented in this encounter [facility] 09-24-2023 Plan of care note Problem: Low Risk Fall Score Description: Clifford Fall Score of 0 - 24 or indicated by [facility] Assessment Goal: Patient should be free from fall Description: Interventions: 1. [place] to environment 2. Hourly rounds addressing the [...] non-skid footwear 11. Teach patient and patient jewelry sales representative to maintain environment for safety and engage in all aspects of fall prevention program Outcome: Progressing Note: Evaluation of progress towards goal: Patient remained free from falls. Will continue to utilized fall prevention measures. [facility] 09-24-2023 Plan of care note Problem: Pain Goal: Patient goal is pain score less than 4, able to rest, and participant in treatment plan as appropriate Description: INTERVENTIONS: 1. Encourage patient or legal jewelry sales representative to report early pain and [...] per policy 9. Teach patient or legal jewelry sales representative interventions for comforting Outcome: Progressing [...] at the bedside 7. Instruct patient/ patient jewelry sales representative about use of safety devices 8. Include patient/ patient jewelry sales representative in decisions related to safety [...] hygiene technique 7. Identify and instruct patient/patient jewelry sales representative in use of appropriate isolation precautions for identified infection/symptoms 8. Provide and discuss with patient/patient jewelry sales representative on educational MDRO sheet 9. Encourage and monitor nutritional status daily and consult dental resident if indicated 10. Implement neutropenic guidelines as needed 11. Review exposure to history of communicable disease and recent travel history on admission 12. Encourage annual influenza vaccine 13. Encourage pneumonia vaccine Outcome: Progressing Note: Evaluation of progress towards goal: Patient afebrile, Monitoring labs. Problem: Knowledge Deficit Goal: Patient/patient jewelry sales representative demonstrates understanding of disease process, treatment plan, medications, and discharge instructions Description: INTERVENTIONS 1. Complete learning assessment and assess knowledge base 2. Provide teaching at level of understanding 3. Provide teaching via preferred learning method(s) Outcome: Progressing Note: Evaluation of progress towards goal: POC reviewed with patient, verbalizes understanding [facility] 09-24-2023 Progress note Formatting of t his [...] - Sophia Rajan RN 09/24/23 10:57 AM [facility] 09-24-2023 Consult note Formatting of th is note is different from the original. Images from the original note were not included. V[facility] History and Physical Examination/Consultation Note Reason for Consultation Bilateral temporal artery biopsy, concern for giant cell arteritis History and Present Illness Jose David is a 78 y.o. White or female who presents to the emergency department from her family law specialist's office. She was being evaluated with an family law specialist for possible giant cell arthritis. She said [...] questions or concerns regarding management. ALANNA Guzman [facility] [place] Office/After hours: [phone] ALANNA Guzman 09/24/23 1521 [facility] [employer] Work Phone: 09-23-2023 Plan of care note Problem: Pain Goal: Patient goal is pain score less than 4, able to rest, and participant in treatment plan as appropriate Description: INTERVENTIONS: 1. Encourage patient or legal jewelry sales representative to report early pain and [...] per policy 9. Teach patient or legal jewelry sales representative interventions for comforting Outcome: Progressing [...] at the bedside 7. Instruct patient/ patient jewelry sales representative about use of safety devices 8. Include patient/ patient jewelry sales representative in decisions related to safety [...] hygiene technique 7. Identify and instruct patient/patient jewelry sales representative in use of appropriate isolation precautions for identified infection/symptoms 8. Provide and discuss with patient/patient jewelry sales representative on educational MDRO sheet 9. Encourage and monitor nutritional status daily and consult dental resident if indicated 10. Implement neutropenic guidelines as needed 11. Review exposure to history of communicable disease and recent travel history on admission 12. Encourage annual influenza vaccine 13. Encourage pneumonia vaccine Outcome: Progressing Note: Evaluation of progress towards goal: monitor for signs and symptoms of infection [facility] [facility] 09-23-2023 Plan of care note Problem: Pain Goal: Patient goal is pain score less than 4, able to rest, and participant in treatment plan as appropriate Description: INTERVENTIONS: 1. Encourage patient or legal jewelry sales representative to report early pain and [...] per policy 9. Teach patient or legal jewelry sales representative interventions for comforting Outcome: Progressing [...] at the bedside 7. Instruct patient/ patient jewelry sales representative about use of safety devices 8. Include patient/ patient jewelry sales representative in decisions related to safety [...] hygiene technique 7. Identify and instruct patient/patient jewelry sales representative in use of appropriate isolation precautions for identified infection/symptoms 8. Provide and discuss with patient/patient jewelry sales representative on educational MDRO sheet 9. Encourage and monitor nutritional status daily and consult dental resident if indicated 10. Implement neutropenic guidelines as needed 11. Review exposure to history of communicable disease and recent travel history on admission 12. Encourage annual influenza vaccine 13. Encourage pneumonia vaccine Outcome: Progressing Note: Evaluation of progress towards goal: Patient receiving antibiotics as ordered. Continue to monitor. Problem: Knowledge Deficit Goal: Patient/patient jewelry sales representative demonstrates understanding of disease process, [...] of 0 - 24 or indicated by [facility] Assessment Goal: Patient should be free from fall Description: Interventions: 1. [place] to environment 2. Hourly rounds addressing the [...] non-skid footwear 11. Teach patient and patient jewelry sales representative to maintain environment for safety and engage in all aspects of fall prevention program Outcome: Progressing Note: Evaluation of progress towards goal: Patient free from falls and injury. Continue to monitor. [facility] [employer] 09-23-2023 Consult note Associated Order (s): IP CONSULT TO SPIRITUAL CARE Summary: Spiritual Care Consult for Advance Directive Assistance Spiritual Care Consult for Advance Directive Assistance Advance Directive: Hospital Aides And Assistants Teacher provided patient with education on the need for advance directives and a copy of the [place] Advance Directive packet. Hospital Aides And Assistants Teacher assisted patient in completing the advance directives. Patient completed and signed a healthcare power of tax associate attorney. Patient was given the original and a copy. One copy placed in patient's chart. A extension edger is available 17/03 to offer spiritual and emotional support and may be reached through the [facility] automatic oven operator at [phone]. [facility] 09-23-2023 Progress note Formatting of t his [...] care - LIANE KEN 09/23/23 2:07 PM [facility] 09-23-2023 Progress note Formatting of t his note might be different from the original. Consulted for MAUREEN to rule out embolic process in setting of sudden vision loss. Discussed with neurology, recommend surface echo with bubble study prior to consideration of MAUREEN. If TTE unremarkable and continued concerns, please let us know. ALANNA Rosario 09/23/23 1300 [facility] Work Phone: 09-23-2023 Consult note Associated Order (s): IP CONSULT TO OPHTHALMOLOGY Date: Reason for consult: I have been asked to evaluate the eyes of this 78-year-old lady who noticed sudden onset of foggy in the left eye 4 days ago this rapidly progressed to complete loss of vision in the left eye.. She saw an trade show specialist who indicated to her that she had [...] is indicated. Thanks Montana Bartlett MD, FACS. [facility] Work Phone: 09-23-2023 Consult note Associated Order [...] the patient was given a referral to family law specialist. Over the weekend patients vision in left eye continued to worsen and eventually lost all vision in left eye. Patient was seen by family law specialist 09/22/2023 and time she would decreased vision also in her right eye. It was recommended that she go straight to the emergency department, for concern for giant cell arteritis. Initially she went to [facility] where they gave her Solu-Medrol 250 mg IV 1 dose and then transferred her to [facility]. 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 Caitie Wilder PA-C [facility] [address] [place] [address] September 23, 2023, 10:20 AM Please note that portions of this note were generated using voice recognition [employer] dictation software. Although every effort was made to ensure the accuracy of this automated block chopper hand, some errors in block chopper hand may have occurred. I have personally performed [...] need to start aspirin Joni PIZANO M.D. [facility] Day time contact: After hours answering service: [phone] [place] [address] [facility] Work Phone: 09-23-2023 Plan of care [...] at the bedside 7. Instruct patient/ patient jewelry sales representative about use of safety devices 8. Include patient/ patient jewelry sales representative in decisions related to safety [...] hygiene technique 7. Identify and instruct patient/patient jewelry sales representative in use of appropriate isolation precautions for identified infection/symptoms 8. Provide and discuss with patient/patient jewelry sales representative on educational MDRO sheet 9. Encourage and monitor nutritional status daily and consult dental resident if indicated 10. Implement neutropenic guidelines as needed 11. Review exposure to history of communicable disease and recent travel history on admission 12. Encourage annual influenza vaccine 13. Encourage pneumonia vaccine Outcome: Progressing Note: Evaluation of progress towards goal: Patient has no signs and symptoms of infection. Problem: Low Risk Fall Score Description: Clifford Fall Score of 0 - 24 or indicated by [facility] Assessment Goal: Patient should be free from fall Description: Interventions: 1. [place] to environment 2. Hourly rounds addressing the [...] non-skid footwear 11. Teach patient and patient jewelry sales representative to maintain environment for safety and engage in all aspects of fall prevention program Outcome: Progressing Note: Evaluation of progress towards goal: Patient remained free from falls. Will continue to utilized fall prevention measures. [facility] 09-23-2023 Consult note Associated Order (s): IP CONSULT TO NEUROLOGY Images from the original note were not included. [facility] Neurology General Neurology Consultation Note Consult Neurology Service: [phone] Primary Team: SAMUEL Chief Complaint and Reason [...] was given referral to eye center in [facility], on Friday and Friday, vision on the left eye worsened significantly and she lost her vision on the left eye. On Friday 09/22, patient came to [place] to see an eye doctor, who asked her to go to the ED. patient initially went to [facility], given Solu-Medrol 250 mg IV once, transferred to [facility] for further workup and ophthalmology evaluation. According to the patient, her right eye vision worsened significantly on Friday, and she lost her vision on both eyes. Patient had no past medical history, she has not taking any scheduled medications, patient lives with her daughter, she is driving and working. Walking with no assistive devices. Upon initial assessment in [facility], patient had complete vision loss on [...] Reportedly ESR and CRP were elevated at [facility] Imaging: CTH, head and neck CTA done at [facility], reportedly unremarkable Other Testing: None Assessment: Jose [...] follow Carlitos Caraballo MD PGY-3, Neurology Resident [facility] Staffed with: (Dr. Byrne) This patient is being followed by the Neurology Resident service. Contact attending directly during these hours: Friday to 7:30-8:30 A.M. to Friday 12-1:00 p.m. Primary Neurology service: [phone] Consult neurology service: [phone] Resident Stroke Service: [phone] If the patient belongs to the Stroke [...] follow and update Sandy Pizano MD, PhD [facility] Work Phone: 09-23-2023 History and physical note Images from the original note were not included. [facility] History and Physical 09/23/2023 [...] on ophthalmology recommendation, patient saw Ophthalmology in [place] today evaluated for possible giant cell arthritis, [...] pedis pulses present and equal bilaterally Skin: [place], warm, dry; no rashes or lesions Neurologic: [...] Electronically signed by: MD Nandini PAREDES M.D. [facility] This note was completed using a voice block chopper hand system. Every effort was made to ensure accuracy. However, inadvertent computerized block chopper hand errors may be present. [facility] Evaluation note Diagnosis Vision blurred- Primary Other specified visual disturbances B12 deficiency Thrombocytosis Essential thrombocythemia Vision blurred Other specified visual disturbances Temporal arteritis (CMS-HCC) Giant cell arteritis Stroke-like symptoms documented in this encounter [facility] System[facility] note* Diagnosis Onset Date Resolution Status GERD (gastroesophageal reflux disease) acute Hospital discharge follow-up acute Temporal arteritis acute Vision loss, bilateral acute [facility] Work Phone: Evaluation note* Diagnosis Giant cell arteritis (CMS-HCC)- Primary Giant cell arteritis [facility] on filedocumented in this encounter [facility] SystemInstructionsNot on filedocumented in this encounter [facility] SystemInstructionsNot on filedocumented in this encounter [facility] Summary Purpose Family History No Family History Records FoundNo Family History Records FoundNo Family History Records FoundNo Family History Records FoundNo Family History Records FoundNo Family History Records Found Advance Directives No Advanced Directives Records FoundDocuments on File Type Date Recorded Patient Metal Mockup Maker Expl anation Durable Power of Lacquer Polisher 09/23/2023 4:17 PM [facility] Pow er of Lacquer Polisher Latest Code Status on File Code Status Date Activated Date Inactivated Comments Full Code 09/23/2023 12:33 AM 09/26/2023 7:44 PM Healthcare Agents on File Name Relationship Healthcare Agent Relationshi p Communication Mike David [facility] Health Care Agent [id number] [id number] (Home) Malinda Brito Daughter First Alternate Health Care Agent Documents on File Type Date Recorded Patient Metal Mockup Maker Expl anation Durable Power of Lacquer Polisher 09/23/2023 4:17 PM [facility] Pow er of Lacquer Polisher Latest Code Status on File Code Status [...] Documents on File Type Date Recorded Patient Metal Mockup Maker Expl anation Durable Power of Lacquer Polisher 10/03/2023 8:14 AM Durable Power of Lacquer Polisher 09/23/2023 4:17 PM [facility] er of Lacquer Polisher Healthcare Agents on File Name Relationship Healthcare Agent Relationshi p Communication Mike Mane Health Care Agent Malinda Brito Daughter First Alternate Health Care Agent Reason for Referral Specialty Diagnoses / Procedures Referred By Contac t Referred To Contact Diagnoses B12 deficiency Thrombocytosis Vision blurred Temporal arteritis ([facility]-H[facility]) Procedures Follow-up with primary care provider Bart Milian MD [address] [place] [id number] Referral ID Status Reason Start Date Expiration Date V isits Requested Visits Authorized [id number] Pending Review 09/26/2023 09/25/2024 1 1 Specialty Diagnoses / Procedures Referred By Jessica ga Referred To Contact Procedures Adult diet Bart Milian MD [address] [place] [id number] Referral ID Status Reason Start Date Expiration Date V isits Requested Visits Authorized [id number] Pending Review 09/26/2023 09/25/2024 1 1 Chief Complaint and Reason for Visit Chief Complaint ESTABLISH Reason for Visit GERD (gastroesophage al reflux disease) Hospital discharge follow-up Temporal arteritis Vision loss, bilateral Additional Source Comments INFORMATION SOURCE (unrecogn ized section and content) DATE CREATED AUTHOR 11/18/2021 [facility] DATE CREATED AUTHOR AUTHOR'S ORGANIZ ATION 01/31/2023 [facility] DATE CREATED AUTHOR AUTHOR'S ORGANIZ ATION 04/15/2023 [facility] DATE CREATED AUTHOR AUTHOR'S ORGANIZ ATION 10/02/2023 [facility] DATE CREATED AUTHOR AUTHOR'S ORGANIZ ATION 10/04/2023 [facility] DATE CREATED AUTHOR AUTHOR'S ORGANIZ ATION 10/24/2023 [facility] Reason for Visit (unrecogniz ed section and content) Specialty Diagnoses / Procedures Referred By Jessica ga Referred To Contact Diagnoses Vision blurred Stroke-like symptoms CVA symptoms Tono Pan MD [address] [place] [address] Referral ID Status Reason Start Date Expiration Date Visits Re quested Visits Authorized [id number] 1 1 Reason Onset Date Comments Hospital [...] available)1007 (Given - Provider: Jennifer Lawton RN)115 ([facility] Unhold - Provider: Automatic Transfer Provider) dextrose (GLUTOSE) 40 % gel 15 g 15 g, oral, As needed, low blood sugar, blood glucose less than 70 mg/dL, Starting on Fri09/23/23 at 0032, If patient conscious and taking PO. If blood glucose is not greater than 70 mg/dL after initial treatment, repeat treatment. 612 ([facility] Hold - Provider: Automatic Transfer Provider - Reason: Patient not available)115 ([facility] Unhold - Provider: Automatic Transfer Provider) dextrose 5 % (D5W) infusion 100 mL/hr, intravenous, Continuous PRN, blood glucose less than 70 mg/dL, Starting on Fri09/23/23 at 0032, Use immediately following dextrose 50% or glucagon treatment for patients who are unconscious or NPO. Contact prescriber for additional orders. If blood glucose is not greater than 70 mg/dL after initial treatment, repeat treatment. 612 ([facility] Hold - Provider: Automatic Transfer Provider - Reason: Patient not available)115 ([facility] Unhold - Provider: Automatic Transfer Provider) dextrose [...] treatment. VESICANT (RED) Warning: HYPERTONIC solution. 612 ([facility] Hold - Provider: Automatic Transfer Provider - Reason: Patient not available)1151 ([facility] Unhold - Provider: Automatic Transfer Provider) fentaNYL [...] mg/dL after initial treatment, repeat treatment. 0613 ([facility] Hold - Provider: Automatic Transfer Provider - Reason: Patient not available)1151 ([facility] Unhold - Provider: Automatic Transfer Provider) ondansetron (PF) (ZOFRAN) injection 4 mg 4 mg, intravenous, Every 8 hours PRN, nausea, vomiting, Starting on Fri09/23/23 at 0032, Administer over 2-5 minutes. 0613 ([facility] Hold - Provider: Automatic Transfer Provider - Reason: Patient not available)1151 ([facility] Unhold - Provider: Automatic Transfer Provider) sennosides-docusate sodium (SENOKOT-S) 8.6-50 mg 1 tablet 1 tablet, oral, Every 12 hours PRN, constipation, Starting on Fri09/23/23 at 0032 0613 ([facility] Hold - Provider: Automatic Transfer Provider - Reason: Patient not available)1151 ([facility] Unhold - Provider: Automatic Transfer Provider) sodium [...] use, Starting on Fri09/23/23 at 0032 0613 ([facility] Hold - Provider: Automatic Transfer Provider - Reason: Patient not available)1151 ([facility] Unhold - Provider: Automatic Transfer Provider) sodium chloride 0.9 % flush bag 25 mL, intravenous, at 100 mL/hr, Administer over 15 Minutes, As needed, line care, line care after IVPB administration, Starting on Fri09/23/23 at 0032 0613 ([facility] Hold - Provider: Automatic Transfer Provider - Reason: Patient not available)1151 ([facility] Unhold - Provider: Automatic Transfer Provider) sodium chloride 0.9 % infusion 20 mL/hr, intravenous, Continuous PRN, to maintain patency of lines, Starting on Fri09/23/23 at 0032 1008 (Restarted - Provider: Kimberly Chin RN) 0613 ([facility] Hold - Provider: Automatic Transfer Provider - Reason: Patient not available)1151 ([facility] Unhold - Provider: Automatic Transfer Provider) sodium chloride 0.9% (NS) irrigation bottle (CANCELED) As needed, Starting on Carrie 09/25/23 at 0807, Intra-op 0807 (Given - Provider: Kristel Reid MD - Comment: GIVEN TO STERILE FIELD) Care Teams (unrecognized sec tion and content) Hand Trucker Relationship Specialty Start Date End Date John Patel DO [address] [place] [address] PCP - General 01/23/17 Hand Trucker Relationship Specialty Start Date End Date John Patel DO [address] [place] [address] PCP - General 01/23/17 Team Status: Active Member Role Status Dates Giovanna Graf APRN GRAIN BROKER AND MARKET OPERATOR-C Primary Care Provider Active Team Status: Inactive Member Role Status Dates Giovanna Graf APRN GRAIN BROKER AND MARKET OPERATOR-C Primary Care Provider, Attending Provider Active Start: October 16, 2023 End: October 16, 2023 Hand Trucker Relationship Specialty Start Date End Date Giovanna Graf APRN-SAMRA [address] [place] [address] PCP - General Nurse Practitioner 10/10/23 Goals [...] BE BASED ON THE PRIMARY CLINICAL RECORDS. [employer] [facility]. provides no warranty or guarantee of the accuracy or completeness of information in this document.
[2023-10-30 09:09] LABS: Basophils Percent Auto 0.2 % (0.2-2.0); Eosinophils Percent Auto 0.4 % (0.9-7.0); Hematocrit 34.9 % (36.0-48.0); Hemoglobin 10.8 g/dL (12.0-16.0); Immature Granulocytes Pct Auto 1.8 % (0.0-0.5); Lymphocytes Absolute Auto 3.9 10^3/uL (1.2-3.8); Lymphocytes Percent Auto 34.2 % (20.5-60.0); Mean Corpuscular HGB Conc 30.9 g/dL (29.9-35.2); Mean Corpuscular Hemoglobin 29.4 pg (26.7-34.0); Mean Corpuscular Volume 95.1 fL (81.0-99.0); Mean Platelet Volume 8.2 fL (9.5-13.5); Monocytes Absolute Auto 0.8 10^3/uL (0.3-0.8); Monocytes Percent Auto 7.3 % (1.7-12.0); Neutrophils Absolute Auto 6.4 10^3/uL (1.4-6.5); Neutrophils Percent Auto 56.1 % (43.0-75.0); Platelet Count 287 10^3/uL (150-450); Red Blood Count 3.67 10^6/uL (4.20-5.40); Red Cell Distribution Width 19.2 % (11.0-15.0); White Blood Count 11.4 10^3/uL (4.0-11.0)
[2023-10-30 09:27] LABS: Erythrocyte Sedimentation Rate 21 mm/hr (<=30)
[2023-10-30 11:22] LABS: Alanine Aminotransferase 24 U/L (14-59); Albumin Globulin Ratio 0.9; Albumin Level 2.9 g/dL (3.4-5.0); Alkaline Phosphatase 60 U/L (46-116); Anion Gap 11.8; Aspartate Amino Transferase 10 U/L (15-37); BUN Creatinine Ratio 29.5; Bilirubin Total 0.4 mg/dL (0.2-1.0); Calcium 8.3 mg/dL (8.5-10.1); Carbon Dioxide 30.3 mmol/L (21.0-32.0); Chloride 102 mmol/L (98-107); Chol HDL Ratio 2.3; Cholesterol 308 mg/dL (<=200); Estimated GFR (African America >60 (>=60); Estimated GFR (Non-African Ame >60 (>=60); Globulin 3.4 g/dL; Glucose 71 mg/dL (74-106); HDL Cholesterol 135 mg/dL (40-60); Potassium 4.1 mmol/L (3.5-5.1); Sodium 140 mmol/L (136-145); Total Protein 6.3 g/dL (6.4-8.2); Triglycerides 62 mg/dL (<=150); VLDL CHOLESTEROL 12.4 mg/dL
[2023-10-31 05:11] LABS: HCV Antibody Non Reactive (Non Reactive); Hep B Core Ab, Tot Negative (Negative)
[2023-11-01 06:08] LABS: QuantiFERON-TB Gold Plus Negative (Negative)
== END 2023-10-30 08:44 | disposition home or self-care (01) ==
LOC: LAB 08:44
PROVIDERS: PCP Nurse Practitioner Family
DX: M31.6 Other giant cell arteritis (principal); R76.8 Other specified abnormal immunological findings in serum; Z79.52 Long term (current) use of systemic steroids; Z11.59 Encounter for screening for other viral diseases; E78.49 Other hyperlipidemia
CPT/HCPCS: 36415; 80053; 80061; 85025; 85652; 86480; 86704; 86803; 87350

== ENCOUNTER 2023-12-29 07:48 | Outpatient (OUT) | payer MEDICARE, SELFPAY ==
--- OUTSIDE RECORDS SUMMARY | 2023-12-29 08:14 | XMS_ITS | CCD ---
Author Organization [facility] Care Team Providers Care [employer] Worker Name Role Phone LEAH, DR PATO Perez Admitting Unavailalonso e LEAH, DR PATO Perez Consulting Unavailabl e LEAH, DR PATO Perez Attending Unavailabl e HOUSE, DR BECKHAM Primary Care Unavailable [...] Giedraitis , Andrius Heidi Attending Unavailable Giedraitis , Andrius Gordon Attending Unavailable House John CORREA Primary Care Provider TONO PAN Admitting Unavailable [...] Unavailable JOHN PATEL Primary Care Unavailable Lesia HUANG-TONNAGE COMPILATION CLERK, Giovanna Primary Care Provid er JOHN PATEL Referring Unavailable JOHN PATEL Primary Care Unavailable JOHN PATEL Referring Unavailable JOHN PATEL Primary Care Unavailable JOHN PATEL Referring Unavailable JOHN PATEL Primary Care Unavailable MOUNA BAUTISTA Attending Unavailable JOHN PATEL Referring Unavailable GIOVANNA GRAF Primary Care Unavailable ALLIE HOSKINS Attending Unavailable JOHN PATEL Referring Unavailable GIOVANNA GRAF Primary Care Unavailable JT JASSO I Attending Unavailable JT JASSO I Attending Unavailable Allergies Allergy Classification Reported Allergen(s) Allergy Type Date of Onset Reaction(s) Facility (1 source) Penicillins Drug allergy (disorder) [facility] Repository (10 sources) Penicillin; Translations: [PENICILLIN] Drug Allergy Confusion, Fever [facility] Medications Current Medications Medication Drug Class(es) Dates Sig (Normalized) Sig (Original) acetaminophen 500 mg oral capsule (9 sources) Start: 10-16-2023 take 500 mg by [...] days. 30 tablet 0 09/26/2023 10/26/2023 Active ferrous sulfate 325 mg delayed release oral tablet (2 sources) Start: 11-06-2023 take 1 tablet by mouth in the morning, then take 1 tablet by mouth at mealtime ferrous sulfate 325 (65 FE) mg EC tablet Take 1 tablet (325 mg total) by mouth in the morning and 1 tablet (325 mg total) in the evening. Take with meals. 180 tablet 1 11/06/2023 Active predniSONE 20 mg oral tablet (7 [...] 12:02am docusate sodium 50 mg / sennosides, chcf 8.6 mg oral tablet (1 source) Start: [...] eyes] 10-16-2023 Chronic Blindness and vision defects (10 sources) Blurring of visual image; Translations: [Other visual disturbances] Onset: 09-23-2023 09-26-2023 Episodic Calculus of urinary tract (1 source) Personal history of urinary calculi; Translations: [PERSONAL HISTORY OF URINARY CALCULI] Onset: 12-26-2022 Episodic Deficiency and other anemia (3 sources) Normocytic anemia; Translations: [Anemia, unspecified] Onset: 11-06-2023 11-06-2023 Episodic Deficiency and other anemia (1 source) Anemia; Translations: [Anemia, unspecified] 11-06-2023 Episodic Deficiency and other anemia (1 source) Anemia, unspecified; Translations: [Anemia, unspecified] Onset: 11-06-2023 Episodic Esophageal disorders (2 sources) Gastroesophageal reflux disease; Translations: [Gastro-esophageal reflux disease without esophagitis] 10-16-2023 Chronic Neoplasms of unspecified nature or uncertain behavior (4 sources) Thrombocytosis; Translations: [Thrombocytosis] Onset: 11-06-2023 09-26-2023 Episodic Nutritional deficiencies (2 sources) Cobalamin [...] examination] 10-16-2023 Episodic Other connective tissue disease (8 sources) Neurological symptom; Translations: [Unspecified symptoms and [...] Systemic lupus erythematosus and connective tissue disorders (10 sources) Temporal arteritis; Translations: [Other giant cell arteritis] Onset: 09-23-2023 09-26-2023 Chronic Unclassified (2 sources) Thrombocytosis, unspecified; Translations: [Thrombocytosis, unspecified] Onset: 09-23-2023 Unclassified (1 source) CVA symptoms Onset: 09-23-2023 Past or Other Problems Problem Classification Problem Date Documented Da te Episodic/Chronic E Codes: Fall (1 source) Fall on same level from slipping, tripping and stumbling without subsequent striking against object, initial encounter; Translations: [FALL SAME LVL SLIP NO STRK OBJ INIT] Onset: 04-26-2022 Episodic Mood disorders (6 sources) Mood disorders Onset: 09-23-2023 09-23-2023 Other non-traumatic joint disorders (3 sources) Pain in right knee; Translations: [PAIN IN RIGHT KNEE] Onset: 04-25-2022 Episodic Sprains and strains (1 source) Sprain of unspecified site of right knee, initial encounter; Translations: [SPRAIN UNS SITE RT KNEE INITIAL] Onset: 04-26-2022 Episodic Results Test Name Value Interpretation Reference Range Facility 36on 12-10-2023 36 Please review notes from [facility]. Patient should be contacting [facility] for assistance on how to proceed. [facility] 36 Spoke with daughter, pt will have to pay $700 for the Actemra through insurance and does not qualify for PAP due to income, would like to know what you want to do. [facility] Telephoneon 12-10-2023 Telephone [phone] Carlyle David 1945 F Date Provider Department Center 12/10/2023 JT CROOK I [facility] No family history on file [facility] 36on 12-04-2023 36 Spoke with patient's daughter and they will package pick up tomorrow . [facility] 36 Yes, I have 2 available samples of Actemra. I will contact patient and inform to package pick up at [facility] [place]. [facility] 36 Do we have Actemra samples Lindsay Perla. [facility] Follow-Upon 11-26-2023 Follow-Up [id number] Carlyle David 1945 F Date Provider Department Center 11/26/2023 JT CROOK I [facility] No family history on file Level of Service:57974 ID OFFICE/OUTPATIENT ESTABLISHED MOD MDM 30 MIN Reason for Visit and Comments: Follow-up [350760] - [facility] 36on 10-22-2023 36 Pt wondering if she should continue this medication, was prescribed out of the hospital. Please advise [facility] Documentationon 10-21-2023 Documentation [id number] Carlyle David 1945 F Date Provider Department Center 10/21/2023 NARESH LOJA [facility] No family history on file Reason for Visit and Comments: Specialty Pharmacy Note: Actemra [Other] [facility] Follow-Upon 10-21-2023 Follow-Up [id number] Carlyle David M 1945 F Date Provider Department Center 10/21/2023 215-JT JASSO I [facility] No family history on file Level of Service:60284 ID OFFICE/OUTPATIENT ESTABLISHED MOD MDM 30 MIN Reason for Visit and Comments: Follow-up [404810] - [facility] Normal [facility] Telephoneon 10-01-2023 Telephone [phone] Carlyle David julia Pierson 1945 F Date Provider Department Center 10/01/2023 758-LINDSAY TIERNEY [facility] No family history on file [facility] BASIC METABOLIC PANLon 09-26 Anion gap [Moles/Vol] 8 mmol/L Normal 5-15 [facility] Comment on above: Performed By: #### C BCA, CMP, 1987-12, FEPR, 2275-4, 4-8, 27821-9, 2131-9, 67161-1, 89904-5, 5130-0, 28162-9, 99856-9, 67039-3, 3357-1, 8092-9, 50808-1, 43249-5, 98085-5, 46684-3, 73931-8 #### [facility] ([id number]) [address], [address] [place] [address] Calcium [Mass/Vol] 7.9 mg/dL Low 8.5-10.5 [facility] Comment on above: Performed By: #### C BCA, CMP, 1987-12, FEPR, 227-4, 2284-8, 92478-4, 2131-9, 56391-0, 88923-7, 5130-0, 37482-7, 46540-9, 44893-7, 3357-1, 8092-9, 63486-3, 84749-1, 45806-7, 97046-1, 26157-4 #### [facility] ([id number]) [address], [address] [place] [address] Chloride [Moles/Vol] 103 mmol/L Normal 98-109 [facility] Comment on above: Performed By: #### C BCA, CMP, 1987-12, FEPR, 2276-4, 2284-8, 03768-4, 2132-9, 82442-6, 61507-1, 5130-0, 25607-6, 84443-4, 64040-4, 3357-1, 8092-9, 17094-8, 06268-5, 39056-1, 48269-9, 13484-8 #### [facility] ([id number]) [address], [address] [place] [address] CO2 [Moles/Vol] 30 mmol/L Normal 22-32 [facility] Comment on above: Performed By: #### C BCA, CMP, 1987-12, FEPR, 2275-4, 2284-8, 05771-0, 2132-9, 74075-6, 54779-8, 5130-0, 36471-4, 19309-6, 20066-9, 3357-1, 8092-9, 77980-5, 20721-1, 31574-9, 58746-3, 75221-6 #### [facility] ([id number]) [address], [address] [place] [address] Creatinine [Mass/Vol] 0.65 mg/dL Normal 0.40-1.00 [facility] Comment on above: Result Comment: METH OD TRACEABLE TO IDMS STANDARD Performed By: #### C BCA, CMP, 1987-12, FEPR, 2276-4, 2284-8, 34716-1, 2132-9, 99897-6, 83394-9, 5130-0, 09010-3, 94869-6, 54353-1, 3357-1, 8092-9, 43082-2, 65698-7, 45764-5, 29101-5, 38540-8 #### [facility] ([id number]) [address], [facility] [address] [place] [address] eGFR (CKD-EPI) NON-RACE DEPENDENT >90 Normal >59 [facility] Comment on above: Result Comment: Reported eGFR is based on the CKD-EPI 2020 equation that does not use a race coefficient. Performed By: #### C BCA, CMP, 1987-12, FEPR, 2276-4, 2284-8, 43327-5, 2132-9, 99490-5, 52837-5, 5130-0, 47756-0, 42912-8, 38187-3, 3357-1, 8092-9, 29181-2, 48460-2, 29891-2, 50267-7, 99255-2 #### [facility] ([id number]) [address], [address] [address] Glucose [Mass/Vol] 79 mg/dL Normal 65-99 [facility] Comment on above: Performed By: #### C BCA, CMP, 1987-12, FEPR, 2275-4, 4-8, 15214-0, 2132-9, 32921-5, 82566-3, 5130-0, 06477-6, 98389-0, 19895-5, 3357-1, 8092-9, 19941-2, 84798-8, 63317-8, 42731-1, 28804-9 #### [facility] ([id number]) [address], [address] [place] [address] Potassium [Moles/Vol] 3.9 mmol/L Normal 3.5-5.0 [facility] Comment on above: Performed By: #### C BCA, CMP, 1987-12, FEPR, 2276-4, 2284-8, 74984-8, 2132-9, 56104-6, 89426-2, 5130-0, 00821-2, 17768-0, 53540-6, 3357-1, 8092-9, 39747-2, 20491-4, 62184-6, 84764-2, 38829-0 #### [facility] ([id number]) [address] [facility], [address] [place] [address] Sodium [Moles/Vol] 141 mmol/L Normal 134-146 [facility] Comment on above: Performed By: #### C BCA, CMP, 1987-12, FEPR, 2276-4, 2284-8, 59580-1, 2132-9, 89847-7, 50174-8, 5130-0, 73979-3, 18774-2, 92844-3, 3357-1, 8092-9, 04989-7, 27178-2, 11484-3, 06579-4, 45402-7 #### [facility] ([id number]) [address] [facility], [address] [address] Urea nitrogen [Mass/Vol] 26 mg/dL Normal 5-27 [facility] Comment on above: Performed By: #### C BCA, CMP, 1987-12, FEPR, 2276-4, 2284-8, 57477-7, 2132-9, 24448-1, 05339-3, 5130-0, 64007-4, 28354-4, 37854-1, 3357-1, 8092-9, 73823-7, 29445-4, 58782-1, 27742-2, 14752-1 #### [facility] ([id number]) [address] [facility], [address] [place] [address] Basic Metabolic Panelon --2023 Anion gap [Moles/Vol] 8 mmol/L 5 - 15 mmol/L [facility] Calcium [Mass/Vol] 7.9 mg/dL Low 8.5 - 10. 5 mg/dL [facility] Chloride [Moles/Vol] 103 mmol/L 98 - 10 9 mmol/L [facility] CO2 [Moles/Vol] 30 mmol/L 22 - 32 mmol/L [facility] Creatinine [Mass/Vol] 0.65 mg/dL 0.40 - 1.00 mg/dL [facility] Comment on above: METHOD TRACEABLE TO IDIN STANDARD eGFR (CKD-EPI)non-race dependent - PINF [facility] Comment on above: Reported eGFR is based on the CKD-EPI 2020 equation that does not use a race coefficient. Glucose [Mass/Vol] 79 mg/dL 65 - 99 mg/dL [facility] Interpretation and review of laboratory results Abnormal [facility] Potassium [Moles/Vol] 3.9 mmol/L 3.5 - 5.0 mmol/L [facility] Sodium [Moles/Vol] 141 mmol/L 134 - 146 mmol/L [facility] Urea nitrogen [Mass/Vol] 26 mg/dL 5 - 27 mg/d L [facility] CBC AND AUTO DIFFon 09-26-19 24 ABSOLUTE BASOPHIL 0.1 X10E9/L Normal 0.0-0.2 [facility] Comment on above: Performed By: #### C SHARATH, KELVIN, 1987-12, FEPR, 6-4, 4-8, 77035-4, 2131-9, 62193-0, 97757-2, 5130-0, 63964-5, 61380-2, 58559-5, 3357-1, 8092-9, 60116-9, 58301-6, 93498-3, 63962-8, 63298-1 #### [facility] ([id number]) [address], [address] [place] [address] ABSOLUTE NEUTROPHIL 7.1 X10E9/L High 1.5-6.6 [facility] Comment on above: Performed By: #### C SHARATH CMP, 1987-12, FEPR, 2276-4, 2284-8, 46651-2, 2131-9, 88896-8, 87741-0, 5130-0, 99664-8, 61799-5, 60855-8, 3357-1, 8092-9, 05135-3, 08569-8, 08245-4, 44664-8, 11601-0 #### [facility] ([id number]) [address], [address] [place] [address] Basophils/100 WBC (Bld) 0.8 % Normal [facility] Comment on above: Performed By: #### C BCA, CMP, 1987-12, FEPR, 2275-4, 2283-8, 68957-5, 2132-9, 46354-3, 47246-1, 5130-0, 01111-1, 97773-2, 35248-4, 3357-1, 8092-9, 12042-9, 99408-3, 79427-6, 59186-3, 98447-3 #### [facility] ([id number]) [address], [address] [place] [address] Eosinophils (Bld) [#/Vol] 0.0 10*3/uL Normal 0.0-0.4 [facility] Comment on above: Performed By: #### C SHARATH, CMP, 1987-12, FEPR, 2275-4, 2283-8, 57692-1, 2-9, 53047-9, 83243-2, 5130-0, 06182-1, 32806-0, 39462-8, 3357-1, 8092-9, 36388-2, 59709-3, 81471-1, 01647-0, 70380-1 #### [facility] ([id number]) [address], [address] [place] [address] Eosinophils/100 WBC (Bld) 0.0 % Normal [facility] Comment on above: Performed By: #### C BCA, CMP, 1987-12, FEPR, 2275-4, 2284-8, 54869-7, 2132-9, 93231-5, 94504-5, 5130-0, 92972-4, 36224-3, 39608-5, 3357-1, 8092-9, 81320-9, 12718-1, 77636-6, 52686-3, 80555-8 #### [facility] ([id number]) [address], [address] [place] [address] Erythrocyte distribution width (RBC) [Ratio] 14.4 % Normal 11.5-15.0 [facility] Comment on above: Performed By: #### C SHARATH, CMP, 1987-12, FEPR, 227-4, 2284-8, 58596-1, 2132-9, 19418-2, 08343-4, 5130-0, 39055-0, 11425-4, 62317-6, 3357-1, 8092-9, 76576-6, 04769-0, 13347-1, 59441-6, 05111-3 #### [facility] ([id number]) [address], [address] [place] [address] Hematocrit (Bld) [Volume fraction] 24.8 % Low 35-47 [facility] Comment on above: Performed By: #### C SHARATH, CMP, 1987-12, FEPR, 2275-4, 2284-8, 53502-1, 2132-9, 62068-0, 35522-6, 5130-0, 85127-8, 59097-3, 32128-9, 3357-1, 8092-9, 76289-9, 28315-1, 71789-3, 18622-2, 31734-6 #### [facility] ([id number]) [address], [address] [place] [address] Hemoglobin (Bld) [Mass/Vol] 8.2 g/dL Low 11.7-15.5 [facility] Comment on above: Performed By: #### C SHARATH, CMP, 1987-12, FEPR, 2275-4, 2284-8, 00419-9, 2132-9, 57004-6, 00130-4, 5130-0, 11990-1, 61236-3, 35294-5, 3357-1, 8092-9, 53415-0, 23704-9, 03581-0, 82295-8, 21131-6 #### [facility] ([id number]) [address], [address] [place] [address] Lymphocytes (Bld) [#/Vol] 2.4 10*3/uL Normal 1.0-3.5 [facility] Comment on above: Performed By: #### C BCA, CMP, 1987-12, FEPR, 2276-4, 2284-8, 36782-8, 2-9, 64401-0, 48500-3, 5130-0, 73537-0, 80474-0, 14991-6, 3357-1, 8092-9, 73761-4, 55521-5, 15574-0, 60377-5, 95987-7 #### [facility] ([id number]) [address], [address] [place] [address] Lymphocytes/100 WBC (Bld) 22.6 % Normal [facility] Comment on above: Performed By: #### C BCA, CMP, 1987-12, FEPR, 2276-4, 2284-8, 88342-6, 2131-9, 12267-1, 43647-2, 5130-0, 29507-2, 67992-6, 79441-8, 3357-1, 8092-9, 69599-8, 44008-7, 81494-2, 01040-4, 50304-9 #### [facility] ([id number]) [address], [address] [place] [address] MCH (RBC) [Entitic mass] 28.5 pg Normal 27-34 [facility] Comment on above: Performed By: #### C BCA, CMP, 1987-12, FEPR, 2276-4, 2284-8, 59579-5, 2132-9, 73166-7, 20244-3, 5130-0, 70570-6, 48560-7, 65842-5, 3357-1, 8092-9, 00118-1, 67502-7, 63211-4, 09878-9, 02562-3 #### [facility] ([id number]) [address], [address] [place] [address] MCHC (RBC) [Mass/Vol] 33.1 g/dL Normal 32-36 [facility] Comment on above: Performed By: #### C BCA, CMP, 1987-12, FEPR, 2276-4, 2284-8, 90871-6, 2132-9, 16910-1, 59320-4, 5130-0, 20694-2, 89544-3, 64459-7, 3357-1, 8092-9, 67269-9, 34835-9, 88171-6, 15927-5, 26748-5 #### [facility] ([id number]) [address], [address] [place] [address] MCV (RBC) [Entitic vol] 86 fL Normal 80-100 [facility] Comment on above: Performed By: #### C BCA, CMP, 1987-12, FEPR, 6-4, 2284-8, 68206-9, 2132-9, 78603-1, 62300-4, 5130-0, 63331-9, 32854-5, 38256-2, 3357-1, 8092-9, 12091-5, 88234-3, 66274-1, 17212-2, 40857-1 #### [facility] ([id number]) [address], [address] [place] [address] Monocytes (Bld) [#/Vol] 1.0 10*3/uL High 0-0.9 [facility] Comment on above: Performed By: #### C BCA, CMP, 1987-12, FEPR, 2276-4, 2284-8, 43752-0, 2132-9, 93952-4, 38392-3, 5130-0, 22319-7, 73960-1, 99804-8, 3357-1, 8092-9, 80145-3, 20738-0, 91879-3, 28572-3, 36272-5 #### [facility] ([id number]) [address], [address] [place] [address] Monocytes/100 WBC (Bld) 9.0 % Normal [facility] Comment on above: Performed By: #### C SHARATH, CMP, 1987-12, FEPR, 2276-4, 2284-8, 60423-3, 2132-9, 55710-0, 02806-4, 5130-0, 09624-7, 83850-7, 11739-1, 3357-1, 8092-9, 58209-1, 62394-9, 16445-1, 57018-8, 59010-4 #### [facility] ([id number]) [address], [address] [place] [address] Neutrophils/100 WBC (Bld) 67.6 % Normal [facility] Comment on above: Performed By: #### C SHARATH, CMP, 1987-12, FEPR, 2276-4, 2284-8, 88671-1, 2132-9, 89526-5, 11370-3, 5130-0, 99259-1, 20899-3, 55147-0, 3357-1, 8092-9, 52090-8, 55631-7, 99236-0, 47792-3, 70205-0 #### [facility] ([id number]) [address], [address] [place] [address] Platelet mean volume (Bld) [Entitic vol] 6.4 fL Low 7-12 [facility] Comment on above: Performed By: #### C BCA, CMP, 1987-12, FEPR, 2276-4, 2284-8, 75165-7, 2132-9, 14333-8, 30881-6, 5130-0, 60963-0, 35852-9, 92924-8, 3357-1, 8092-9, 24073-9, 68906-6, 15770-0, 40856-0, 96454-7 #### [facility] ([id number]) [address] [place] [address], [address] [place] [address] Platelets (Bld) [#/Vol] 686 10*3/uL High 150-450 [facility] Comment on above: Performed By: #### C SHARATH, [facility], 1987-12, FEPR, 2276-4, 2284-8, 75654-6, 2132-9, 62657-6, 39786-4, 5130-0, 07584-4, 69885-1, 94681-7, 3357-1, 8092-9, 61609-0, 11672-5, 96293-5, 55356-4, 35385-9 #### [facility] ([id number]) [address] [place] [address] RBC COUNT 2.88 X10E12/L Low 3.80-5.20 [facility] Comment on above: Performed By: #### C BCA, CMP, 1987-12, FEPR, 2276-4, 2284-8, 96081-5, 2132-9, 53224-5, 53972-6, 5130-0, 21868-0, 60942-1, 17517-5, 3357-1, 8092-9, 67270-2, 29033-1, 79305-6, 88436-5, 83547-8 #### [facility] ([id number]) [address] [place] [address], [address] [place] [address] WBC (Bld) [#/Vol] 10.5 10*3/uL Normal 4.0-11.0 [facility] Comment on above: Performed By: #### C BCA, CMP, 1988-5, FEPR, 2276-4, 2284-8, 78113-1, 2132-9, 37076-4, 57226-8, 5130-0, 46222-6, 37990-6, 83673-4, 3357-1, 8092-9, 42247-9, 60228-0, 35310-0, 37631-5, 80774-6 #### [facility] ([id number]) [address] [facility], [address] [place] [address] CBC auto differentialon Basophils (Bld) [#/Vol] 0.1 10*3/uL [facility] Basophils/100 WBC (Bld) 0.8 % P [facility] Eosinophils (Bld) [#/Vol] 0.0 10*3/uL [facility] Eosinophils/100 WBC (Bld) 0.0 % [facility] Erythrocyte distribution width (RBC) [Ratio] 14.4 % 11.5 - 15.0 % [facility] Hematocrit (Bld) [Volume fraction] 24.8 % Low 35 - 47 % [facility] Hemoglobin (Bld) [Mass/Vol] 8.2 g/dL Low 11.7 - 15.5 g/dL [facility] Interpretation and review of laboratory results Abnormal [facility] Lymphocytes (Bld) [#/Vol] 2.4 10*3/uL [facility] Lymphocytes/100 WBC (Bld) 22.6 % [facility] MCH (RBC) [Entitic mass] 28.5 pg 27 - 34 pg [facility] MCHC (RBC) [Mass/Vol] 33.1 g/dL 32 - 36 g/dL [facility] MCV (RBC) [Entitic vol] 86 fL 80 - 100 [facility]L [facility] Monocytes (Bld) [#/Vol] 1.0 10*3/uL High [facility] Monocytes/100 WBC (Bld) 9.0 % P [facility] Neutrophils (Bld) [#/Vol] 7.1 10*3/uL High [facility] Neutrophils/100 WBC (Bld) 67.6 % [facility] Platelet mean volume (Bld) [Entitic vol] 6.4 fL Low 7 - 12 fL [facility] Platelets (Bld) [#/Vol] 686 10*3/uL High [facility] RBC (Bld) [#/Vol] 2.88 10*6/uL Low [facility] WBC corrected for nucl RBC Auto (Bld) [#/Vol] 10.5 [facility] Clinical Pathology Blood Sme ar Review Clinicalon 09-26-2023 Pathologist review Pathologist comment (Bld) [Interp] NOTE [facility] Comment on above: [facility] [address] [place] [address] Clinical Pathology Report Patient Name:JOSE DAVID:1945 (Age: 78)Gender:FTaken:4Reported:09/26/2023hysician(s):Olga Pan M.D. ([phone])Copy To: Rec. #:[id number]: #[id number] Final Pathologic Diagnosis Peripheral blood smear: Neutrophilic [...] correlation is recommended. Report Electronically Signed Out hn09/26/2023Og Martinez M.D. Interpretation performed at [facility], [address] [place] [address], License number: [id number]. Clinical History R29.9. BLOOD SMEAR EVALUATION CBC (09/23/2023 0818): WBC = 12.1 X10E9/L; HGB = 9.1 g/dL; HCT = 27.8%; MCV = 85 fL; PLT = 924 X10E9/L OTHER LAB DATA: Noncontributory. BLOOD SMEAR: Leukocytes: Neutrophilic leukocytosis with cytotoxic changes and lymphocytopenia. Erythrocytes: Moderate normocytic normochromic anemia. Platelets: Thrombocytosis. Specimen(s) Received Blood Smear Review Fee Codes(s): 1; 27791 JAK2 V617F mutationon 2023 JAK2 gene p.[id number] [employer] Ql (Bld/Tiss) SEE COMMENTS 09/26/2023 10:21 AM [employer] [facility] Comment on above: NOTE Test Result Flag Unit RefValue ----- JAK2 V617F Mutation Detection, B JAK2 Result see interpretation JAK2 V617F Mutation Detection, B See Note Peripheral blood, JAK2 V617F mutation analysis: Negative for JAK2 V617F. A negative [id number] test result does not exclude the possibility [...] assay has been determined at 0.06% (see [facility] Interpretive Handbook for method details). This test was developed and its performance characteristics determined by [facility] in a manner consistent with CLIA requirements. This test has not been cleared or approved by the U.S. Food and Drug Administration. Test Performed by: [facility] - [address] [address] Granulizing Machine Operator: Thierry Duran M.D. Ph.D.; CLIA# [id number] JAK2 gene p.[id number] Mol[employer] Ql (Bld/Tiss)on 09-26-2023 [facility] Pathologist review Pathologi st comment (Bld) [Interp]on 09-26-2023 [facility] Surgical Pathologyon [facility] [address] [place] [address] Surgical Pathology Consultation Patient Name:JOSE DAVID:1945 (Age: 78)Gender:FTaken:4Reported:09/26/2023 Physician(s):Kristel Reid MD ([phone])Copy To: Rec. #:[id number]: #[id number] Final Pathologic Diagnosis 1. Left temporal artery [...] correlation is suggested. Report Electronically Signed Out tay/09/26/2023José Luis Pederson MD Interpretation performed at [facility], [address] [place], [place] [id number], License number: [id number]. Clinical History Temporal arteries. Gross Description 1. Received in formalin labeled MULUGETA, left temporal artery biopsy is a segment of vasculature, 2 x 0.3 cm. The specimen is sectioned to reveal a pinpoint lumen. Are 3 segments of vasculature ranging from 0.5 cm to 1.2 cm in length by 0.2 cm in diameter. The specimen is submitted entirely in a single cassette. (1,ns,[id number], m1) . 2. Received in formalin labeled MULUGETA, right temporal artery biopsy are 3 segments of vasculature ranging from 0.5 cm to 1.2 cm in length by 0.2 cm in diameter. The segments are sectioned to reveal pinpoint lumens. The specimen are submitted entirely in cassettes A-B. (2,ns,[id number], m1) . /09/25/2023G Specimen(s) Received 1: Left temporal artery biopsy 2: Right temporal artery biopsy Fee Codes(s): 1; 07599, 84197 2; 70725, 50167 [facility] [employer] [facility] BCR/ABL by PCR w/ Reflexon 0 09-25-2023 Narrative diagnostic report [employer] (Bld/Tiss) [Interp] SEE COMMENTS 09/25/2023 04:24 PM [employer] Comment on above: NOTE Test Result Flag Unit RefValue ----- BCR/ABL1 Reflex, Qual/Quant Specimen Type EDTA WHOLE BLOOD BCR/ABL1 Reflex Result see interpretation Interpretation See Note Peripheral blood, BCR/ABL1 mRNA analysis, qualitative: Negative. No BCR/ABL1 mRNA transcripts were detected. Method summary: The presence or absence of BCR/ABL1 mRNA transcripts was evaluated using a qualitative, reverse cereal chemist PCR-based assay. The assay detects nearly all published and theoretical BCR/ABL1 fusion forms including the common e13/e14-a2 (p210) and e1-a2 (p190) transcripts, as well as other rarer variants (e.g. e19-a2 (p230), e13/e14-a3, e1-a3, etc.). The limit of detection for this assay is 0.1%. Please contact the lab at [phone] with questions or if additional testing is required. See [facility] Test Catalog for additional method details. Signing Pathologist: Ammon Titus M.D. (Jane), Ph.D. ADDITIONAL INFORMATION This test was developed and its performance characteristics determined by [facility] in a manner consistent with CLIA requirements. This test has not been cleared or approved by the U.S. Food and Drug Administration. Test Performed by: [facility] [place] [address] Granulizing Machine Operator: Thierry Duran M.D. Ph.D.; CLIA# [id number] Narrative diagnostic report Martha Tidwell (Bld/Tiss) [Interp]on 09-25-2023 [facility]ology[facility] 024 Surgical Pathology Normal [facility] Comment on above: Result Comment: [facility] [address] [place] [address] Surgical Pathology Consultation ADDENDUM ID Patient Name:JOSE DAVID:1945 (Age: 78)Gender:FTaken:4Reported:09/26/2023hysician(s):Kristel Reid MD ([phone])Copy To: Rec. #:[id number]: #[id number] Final Pathologic Diagnosis 1. Left temporal artery [...] Signed Out [facility]/09/26/2023José Luis Pederson MD Addendum (PHS) Date Reported: 09/29/2023 In both parts of the specimen, and elastic special stain (with appropriate controls) demonstrates fragmentation and loss of the internal elastic lamina. Electronically Signed Out José Luis Pederson MD Interpretation performed at [facility], [address] [place] [address], License number: [id number]. Clinical History Temporal arteries. Gross Description 1. Received in formalin labeled HEMPSTEAD, left temporal artery biopsy is a segment of vasculature, 2 x 0.3 cm. The specimen is sectioned to reveal a pinpoint lumen. Are 3 segments of vasculature ranging from 0.5 cm to 1.2 cm in length by 0.2 cm in diameter. The specimen is submitted entirely in a single cassette. (1,ns,[id number], m1) . 2. Received in formalin labeled MULUGETA, right temporal artery biopsy are 3 segments of vasculature ranging from 0.5 cm to 1.2 cm in length by 0.2 cm in diameter. The segments are sectioned to reveal pinpoint lumens. The specimen are submitted entirely in cassettes A-B. (2,ns,[id number], m1) . 4RG Specimen(s) Received 1: Left temporal artery biopsy 2: Right temporal artery biopsy Fee Codes(s): 1; 30296, 38320 2; 51431, 58514 dRVVT/dRVVT.excess phospholi pid Coag (PPP) [Ratio]on 09-25-2023 dRVVT excess phospholipid Coag Ql (PPP) Negative [facility] ANCAon 09-24-2023 Neutrophil cytoplasmic Ab IF Ql (S) See Below [facility] Comment on above: NOTE TEST RESULT FLAG [...] See below Reviewed by Arun Tucker, Ph.D D([facility]) This test is used as an aid in diagnosis of patients with autoimmune vasculitidies. The final interpretation should be done in conjunction with ANCA test results and clinical correlation. Test Performed By: [facility] [address] [place] [address] Hairspring Truer: Meño Hernandez III, M.D. CLIA #[id number]^ BASIC METABOLIC PANLon 09-24 Anion gap [Moles/Vol] 10 mmol/L Normal 5-15 [facility] Comment on above: Performed By: #### C BCA, CMP, 1988-5, FEPR, 2276-4, 2284-8, 33381-0, 2132-9, 67606-4, 21816-7, 5130-0, 12212-3, 95665-8, 11305-4, 3357-1, 8092-9, 05267-5, 66211-3, 96055-6, 80510-2, 14135-4 #### [facility] ([id number]) [address] [place] [address], [address] [place] [address] Calcium [Mass/Vol] 8.5 mg/dL Normal 8.5-10.5 [facility] Comment on above: Performed By: #### C BCA, CMP, 1987-12, FEPR, 2276-4, 2284-8, 55234-3, 2132-9, 89483-6, 90636-8, 5130-0, 77692-7, 76412-6, 68149-1, 3357-1, 8092-9, 78584-1, 80297-7, 83727-6, 89397-0, 92379-0 #### [facility] ([id number]) [address], [address] [place] [address] Chloride [Moles/Vol] 101 mmol/L Normal 98-109 [facility] Comment on above: Performed By: #### C BCA, CMP, 1987-12, FEPR, 2276-4, 2284-8, 94265-5, 2132-9, 33153-0, 40496-0, 5130-0, 10166-0, 25264-7, 19247-4, 3357-1, 8092-9, 47568-2, 72796-6, 68424-2, 48779-4, 63441-7 #### [facility] ([id number]) [address], [address] [place] [address] CO2 [Moles/Vol] 29 mmol/L Normal 22-32 [facility] Comment on above: Performed By: #### C BCA, CMP, 1987-12, FEPR, 227-4, 2284-8, 74753-8, 2132-9, 33611-4, 74696-1, 5130-0, 78174-3, 30913-9, 59625-8, 3357-1, 8092-9, 21726-9, 09121-7, 15669-8, 26221-6, 53523-5 #### [facility] ([id number]) [address], [address] [place] [address] Creatinine [Mass/Vol] 0.61 mg/dL Normal 0.40-1.00 [facility] Comment on above: Result Comment: METH OD TRACEABLE TO IDMS STANDARD Performed By: #### C KELVIN EARLY, 1987-12, FEPR, 2276-4, 2284-8, 50981-4, 2132-9, 64421-1, 21357-3, 5130-0, 22851-1, 85345-8, 91062-3, 3357-1, 8092-9, 28189-4, 00901-3, 84196-8, 63686-7, 32061-7 #### [facility] ([id number]) [address] [place] [address], [address] [place] [address] eGFR (CKD-EPI) NON-RACE DEPENDENT >90 Normal >59 [facility] Comment on above: Result Comment: Reported eGFR is based on the CKD-EPI 2020 equation that does not use a race coefficient. Performed By: #### C SHARATH, KELVIN, 1987-12, FEPR, 2275-4, 2284-8, 58408-6, 2132-9, 41810-7, 21629-1, 5130-0, 25313-9, 84822-7, 93403-6, 3357-1, 8092-9, 29632-8, 26481-1, 91781-8, 94436-8, 36068-6 #### [facility] ([id number]) [address] [place] [address], [address] [place] [address] Glucose [Mass/Vol] 98 mg/dL Normal 65-99 [facility] Comment on above: Performed By: #### C SHARATH, CMP, 1987-12, FEPR, 2276-4, 2284-8, 17598-1, 2132-9, 45351-7, 21081-7, 5130-0, 92097-5, 51066-4, 80191-3, 3357-1, 8092-9, 60406-8, 25820-5, 27725-2, 98232-2, 10955-5 #### [facility] ([id number]) [address], [address] [place] [address] Potassium [Moles/Vol] 3.5 mmol/L Normal 3.5-5.0 [facility] Comment on above: Performed By: #### C BCA, CMP, 1987-12, FEPR, 2276-4, 2284-8, 89285-1, 2132-9, 85849-9, 81892-4, 5130-0, 10740-8, 61094-3, 99626-4, 3357-1, 8092-9, 36591-3, 94429-5, 09453-5, 80517-8, 34774-7 #### [facility] ([id number]) [address], [address] [place] [address] Sodium [Moles/Vol] 140 mmol/L Normal 134-146 [facility] Comment on above: Performed By: #### C BCA, CMP, 1987-12, FEPR, 2275-4, 2284-8, 52026-9, 2132-9, 71260-4, 10193-1, 5130-0, 68402-3, 30236-7, 44432-4, 3357-1, 8092-9, 93342-8, 09113-1, 56749-3, 65017-7, 90292-7 #### [facility] ([id number]) [address], [address] [place] [address] Urea nitrogen [Mass/Vol] 22 mg/dL Normal 5-27 [facility] Comment on above: Performed By: #### C BCA, CMP, 1987-12, FEPR, 227-4, 2284-8, 75312-5, 2132-9, 24816-2, 58937-1, 5130-0, 35996-6, 76157-4, 71085-5, 3357-1, 8092-9, 12074-9, 02072-3, 60134-4, 86346-7, 31735-4 #### [facility] ([id number]) [address], [address] [place] [address] Basic Metabolic Panelon 08-27 Anion gap [Moles/Vol] 10 mmol/L 5 - 15 mmol/L [facility] Calcium [Mass/Vol] 8.5 mg/dL 8.5 - 10. 5 mg/dL [facility] Chloride [Moles/Vol] 101 mmol/L 98 - 10 9 mmol/L [facility] CO2 [Moles/Vol] 29 mmol/L 22 - 32 mmol/L [facility] Creatinine [Mass/Vol] 0.61 mg/dL 0.40 - 1.00 mg/dL [facility] Comment on above: METHOD TRACEABLE TO [facility] STANDARD eGFR (CKD-EPI)non-race dependent - PINF [facility] Comment on above: Reported eGFR is based on the CKD-EPI 2020 equation that does not use a race coefficient. Glucose [Mass/Vol] 98 mg/dL 65 - 99 mg/dL [facility] Potassium [Moles/Vol] 3.5 mmol/L 3.5 - 5.0 mmol/L [facility] Sodium [Moles/Vol] 140 mmol/L 134 - 146 mmol/L [facility] Urea nitrogen [Mass/Vol] 22 mg/dL 5 - 27 mg/d L [facility] CBC AND AUTO DIFFon 09-24-19 ABSOLUTE BASOPHIL 0.1 X10E9/L Normal 0.0-0.2 [facility] Comment on above: Performed By: #### C BCA, CMP, 1988-5, FEPR, 2276-4, 2284-8, 93383-7, 2132-9, 65313-2, 18271-0, 5130-0, 52502-6, 12743-1, 39890-7, 3357-1, 8092-9, 12037-5, 26402-1, 63680-8, 96210-1, 52362-0 #### [facility] ([id number]) [address] [facility], [address] [place] [address] ABSOLUTE NEUTROPHIL 16.3 X10E9/L High 1.5-6.6 [facility] Comment on above: Performed By: #### C SHARATH, CMP, 1987-12, FEPR, 2276-4, 2284-8, 37332-2, 2132-9, 34842-9, 53326-7, 5130-0, 36322-5, 71500-5, 96319-3, 3357-1, 8092-9, 66855-6, 89600-3, 97916-2, 25506-9, 98446-1 #### [facility] ([id number]) [address], [address] [place] [address] Basophils/100 WBC (Bld) 0.5 % Normal [facility] Comment on above: Performed By: #### C SHARATH, CMP, 1987-12, FEPR, 2275-, 2283-8, 51749-2, 2132-9, 66325-1, 09932-9, 5130-0, 96143-2, 49558-0, 88665-7, 3357-1, 8092-9, 27867-5, 70321-8, 31803-6, 54666-6, 00777-6 #### [facility] ([id number]) [address], [address] [place] [address] Eosinophils (Bld) [#/Vol] 0.0 10*3/uL Normal 0.0-0.4 [facility] Comment on above: Performed By: #### C BCA, CMP, 1987-12, FEPR, 2275-4, 2284-8, 50414-4, 2132-9, 45122-9, 85690-8, 5130-0, 67093-2, 54898-2, 04509-7, 3357-1, 8092-9, 98891-6, 08609-4, 59322-5, 40053-0, 12055-3 #### [facility] ([id number]) [address], [address] [place] [address] Eosinophils/100 WBC (Bld) 0.0 % Normal [facility] Comment on above: Performed By: #### C SHARATH, KELVIN, 1987-12, FEPR, 2276-4, 2284-8, 63276-3, 2132-9, 75030-2, 36834-0, 5130-0, 95242-9, 90475-3, 32699-6, 3357-1, 8092-9, 31049-3, 24063-1, 29548-4, 59351-3, 24505-6 #### [facility] ([id number]) [address], [address] [place] [address] Erythrocyte distribution width (RBC) [Ratio] 14.8 % Normal 11.5-15.0 [facility] Comment on above: Performed By: #### C SHARATH, KELVIN, 1987-12, FEPR, 2275-4, 2284-8, 16443-6, 2132-9, 77966-1, 28304-4, 5130-0, 81568-8, 30375-6, 66699-4, 3357-1, 8092-9, 81709-8, 15950-1, 38544-0, 50853-1, 16956-5 #### [facility] ([id number]) [address], [address] [place] [address] Hematocrit (Bld) [Volume fraction] 25.6 % Low 35-47 [facility] Comment on above: Performed By: #### C SHARATH, CMP, 1987-12, FEPR, 227-4, 2284-8, 25112-1, 2132-9, 22715-3, 67083-7, 5130-0, 91194-6, 34827-7, 31285-0, 3357-1, 8092-9, 76338-9, 24105-1, 85052-9, 09105-8, 45897-1 #### [facility] ([id number]) [address], [address] [place] [address] Hemoglobin (Bld) [Mass/Vol] 8.3 g/dL Low 11.7-15.5 [facility] Comment on above: Performed By: #### C SHARATH, CMP, 1987-12, FEPR, 2276-4, 2284-8, 95654-8, 2132-9, 02459-2, 90636-5, 5130-0, 44531-6, 60104-9, 52082-4, 3357-1, 8092-9, 07269-8, 39694-9, 77155-0, 77269-5, 93560-9 #### [facility] ([id number]) [address] [facility], [address] [place] [address] Lymphocytes (Bld) [#/Vol] 1.6 10*3/uL Normal 1.0-3.5 [facility] Comment on above: Performed By: #### C SHARATH, CMP, 1987-12, FEPR, 2275-4, 2284-8, 28433-9, 2132-9, 35323-6, 00002-5, 5130-0, 68607-2, 68932-5, 46149-3, 3357-1, 8092-9, 65314-3, 55659-3, 53979-3, 23930-9, 18433-6 #### [facility] ([id number]) [address], [address] [place] [address] Lymphocytes/100 WBC (Bld) 8.3 % Normal [facility] Comment on above: Performed By: #### C BCA, CMP, 1987-12, FEPR, 2276-4, 2284-8, 76817-3, 2132-9, 35694-8, 23377-3, 5130-0, 94529-3, 00495-8, 16650-5, 3357-1, 8092-9, 91633-3, 17886-4, 29600-4, 45178-7, 67640-3 #### [facility] ([id number]) [address], [address] [place] [address] MCH (RBC) [Entitic mass] 27.8 pg Normal 27-34 [facility] Comment on above: Performed By: #### C BCA, CMP, 1987-12, FEPR, 2276-4, 2284-8, 89937-2, 2132-9, 33952-1, 90451-1, 5130-0, 75462-3, 36329-7, 69307-6, 3357-1, 8092-9, 99328-8, 14663-5, 80647-0, 76370-6, 62638-8 #### [facility] ([id number]) [address], [address] [place] [address] MCHC (RBC) [Mass/Vol] 32.5 g/dL Normal 32-36 [facility] Comment on above: Performed By: #### C BCA, CMP, 1987-12, FEPR, 2276-4, 2284-8, 77054-1, 2132-9, 08827-7, 41688-3, 5130-0, 36182-5, 91435-9, 26438-3, 3357-1, 8092-9, 48811-1, 45665-3, 01746-3, 26536-7, 02677-9 #### [facility] ([id number]) [address], [address] [place] [address] MCV (RBC) [Entitic vol] 85 fL Normal 80-100 [facility] Comment on above: Performed By: #### C BCA, CMP, 1987-12, FEPR, 2276-4, 2284-8, 44935-7, 2132-9, 34652-8, 16680-0, 5130-0, 08428-7, 26079-6, 53119-8, 3357-1, 8092-9, 87758-7, 79255-8, 34773-9, 27906-9, 67136-7 #### [facility] ([id number]) [address], [address] [place] [address] Monocytes (Bld) [#/Vol] 1.0 10*3/uL High 0-0.9 [facility] Comment on above: Performed By: #### C BCA, CMP, 1987-12, FEPR, 2276-4, 2284-8, 79688-2, 2132-9, 85597-4, 00457-9, 5130-0, 47836-5, 00858-8, 24146-0, 3357-1, 8092-9, 35277-0, 41058-1, 79638-9, 69903-2, 95150-8 #### [facility] ([id number]) [address], [address] [place] [address] Monocytes/100 WBC (Bld) 5.0 % Normal [facility] Comment on above: Performed By: #### C BCA, CMP, 1987-12, FEPR, 227-4, 2284-8, 13490-0, 2132-9, 56857-5, 74245-0, 5130-0, 45570-9, 41070-3, 17018-4, 3357-1, 8092-9, 11640-9, 08487-2, 78595-8, 72354-6, 04910-3 #### [facility] ([id number]) [address], [address] [place] [address] Neutrophils/100 WBC (Bld) 86.2 % Normal [facility] Comment on above: Performed By: #### C BCA, CMP, 1987-12, FEPR, 2276-4, 2284-8, 58688-9, 2132-9, 74127-7, 99660-0, 5130-0, 75260-9, 78138-2, 07724-9, 3357-1, 8092-9, 12889-9, 54642-2, 77844-8, 16564-7, 18524-6 #### [facility] ([id number]) [address], [address] [place] [address] Platelet mean volume (Bld) [Entitic vol] 6.5 fL Low 7-12 [facility] Comment on above: Performed By: #### C SHARATH, CMP, 1987-12, FEPR, 227-4, 228-8, 94240-8, 2131-9, 55249-9, 06769-7, 5130-0, 86192-1, 95634-8, 78250-4, 3357-1, 8092-9, 91655-0, 43836-1, 56120-1, 44655-7, 24921-2 #### [facility] ([id number]) [address], [address] [place] [address] Platelets (Bld) [#/Vol] 902 10*3/uL High 150-450 [facility] Comment on above: Performed By: #### C SHARATH, CMP, 1987-12, FEPR, 2275-, 2283-8, 09321-4, 2131-9, 69077-6, 35771-9, 5130-0, 39020-6, 54947-2, 54244-0, 3357-1, 8092-9, 94229-1, 99028-5, 15774-3, 74989-9, 84691-3 #### [facility] ([id number]) [address], [address] [place] [address] RBC COUNT 3.00 X10E12/L Low 3.80-5.20 [facility] Comment on above: Performed By: #### C SHARATH, CMP, 1987-12, FEPR, 2276-4, 2284-8, 14264-9, 2132-9, 80319-2, 26316-7, 5130-0, 86170-1, 73445-5, 94130-6, 3357-1, 8092-9, 44758-7, 21610-5, 70614-1, 56653-7, 34112-0 #### [facility] ([id number]) [address] [place] [address], [address] [place] [address] WBC (Bld) [#/Vol] 18.9 10*3/uL High 4.0-11.0 [facility] Comment on above: Performed By: #### C BCA, CMP, 1987-, FEPR, 2276-4, 2284-8, 31975-2, 2132-9, 00457-3, 51401-4, 5130-0, 96813-9, 17690-3, 19982-9, 3357-1, 8092-9, 05166-4, 40589-8, 46039-0, 83627-3, 43827-3 #### [facility] ([id number]) [address] [place] [address], [address] [place] [address] CBC auto differentialon 08-27 Basophils (Bld) [#/Vol] 0.1 10*3/uL [facility] Basophils/100 WBC (Bld) 0.5 % [facility] Eosinophils (Bld) [#/Vol] 0.0 10*3/uL [facility] Eosinophils/100 WBC (Bld) 0.0 % [facility] Erythrocyte distribution width (RBC) [Ratio] 14.8 % 11.5 - 15.0 % [facility] Hematocrit (Bld) [Volume fraction] 25.6 % Low 35 - 47 % [facility] Hemoglobin (Bld) [Mass/Vol] 8.3 g/dL Low 11.7 - 15.5 g/dL [facility] Interpretation and review of laboratory results Abnormal [facility] Lymphocytes (Bld) [#/Vol] 1.6 10*3/uL [facility] Lymphocytes/100 WBC (Bld) 8.3 % [facility] MCH (RBC) [Entitic mass] 27.8 pg 27 - 34 pg [facility] MCHC (RBC) [Mass/Vol] 32.5 g/dL 32 - 36 g/dL [facility] MCV (RBC) [Entitic vol] 85 fL 80 - 100 fL [facility] Monocytes (Bld) [#/Vol] 1.0 10*3/uL High [facility] Monocytes/100 WBC (Bld) 5.0 % P [facility] Neutrophils (Bld) [#/Vol] 16.3 10*3/uL High [facility] Neutrophils/100 WBC (Bld) 86.2 % [facility] Platelet mean volume (Bld) [Entitic vol] 6.5 fL Low 7 - 12 fL [facility] Platelets (Bld) [#/Vol] 902 10*3/uL High [facility] RBC (Bld) [#/Vol] 3.00 10*6/uL Low [facility] WBC corrected for nucl RBC Auto (Bld) [#/Vol] 18.9 High [facility] [email or web address] [facility] Cardiac echo study Procedure Ordered By: Nacho Grant on 09-24-2023 Aortic root 2.80 cm [facility] [employer] Work Phone: AV mean gradient 6.00 mmHg [facility] [employer] Work Phone: AV peak gradient 8.64 mmHg [facility] [employer] Work Phone: AV peak kym 147.00 cm/s [facility] [employer] Work Phone: AV valve area 1.95 cm2 [facility] [employer] Work Phone: AV Velocity Ratio 0.77 [facility] [employer] Work Phone: AV VTI 33.60 cm [facility] [employer] Work Phone: E wave deceleration time 187.00 msec [facility] Work Phone: E/A ratio 0.72 [facility] Work Phone: Echo EF Estimated 63 % [facility] Work Phone: EF 63 % [facility] Work Phone: Energy loss index 1.88 [employer] Work Phone: 1 0 FS 33 % 28 - 44 % [employer] Work Phone: 1 0 Interventricular Septum Diastolic Thickness by 2D 10 cm [employer] Work Phone: 1 0 IVS 1.00 cm 0.6 - 1.1 cm [employer] Work Phone: 1 0 LA size 3.60 cm [employer] Work Phone: 1 0 LA volume 48.00 cm3 [employer] Work Phone: 1 0 LA Volume Index 31.8 mL/m2 [employer] Work Phone: [phone] Left Ventricle Mass 122.106557278764351 g [employer] Work Phone: [phone] LV Diastolic Volume 71.20 mL [facility] Work Phone: 1 0 LV ESV A2C 56.30 mL [employer] Work Phone: [phone] LV ESV A4C 33.20 mL [employer] Work Phone: 1 0 LV RWT 2D 51.28 [employer] Work Phone: [phone] LV Systolic Volume 26.00 mL [employer] Work Phone: [phone] LVIDd 3.90 cm 3.78 - 5.25 cm [employer] Work Phone: [phone] LVIDs 2.60 cm 2.25 - 3.40 cm [employer] Work Phone: [phone] LVOT diameter 1.80 cm [employer] Work Phone: [phone] LVOT peak kym 1.37 m/s [employer] Work Phone: [phone] LVOT peak VTI 25.80 cm [employer] Work Phone: [phone] LVOT stroke volume 65.65 ml [employer] Work Phone: [phone] MV Peak A Kym 99.40 cm/s [employer] Work Phone: MV Peak E Kym 71.30 cm/s [employer] Work Phone: MV pressure 1/2 time 55.00 ms [facility] Work Phone: [phone] MV TDI E' (medial) 6.85 cm/s [facility] Work Phone: MV valve area p 1/2 method 4.00 cm2 [facility] Work Phone: PV peak gradient 4.16 mmHg [facility] Work Phone: PW 1.00 cm 0.6 - 1.1 cm [facility] Work Phone: RV diastolic dimension (basal) 29.0 mm [facility] Work Phone: TAPSE 1.88 cm [employer] Work Phone: TDI 9.68 cm/s [facility] Work Phone: Valve area - Index 1.3 [facility] Work Phone: ZLVIDD -1.32 [employer] Work Phone: ZLVIDS -0.48 [employer] Work Phone: [employer] Work Phone: Cardiac echo study Procedure on [...] for comparison. [facility] Radiology Study observation (narrative) [facility] MR BRAIN W WO CONTon 024 MR [...] of the major arterial structures in the [place]. The paranasal sinuses are clear. [...] Jewell MD on 09/24/2023 4:24 AM Normal [facility] MR Brain WO and W contrast [...] of the major arterial structures in the [place]. The paranasal sinuses are clear. [...] of the major arterial structures in the [place]. The paranasal sinuses are clear. [...] Gilbert Jewell MD on 09/24/2023 4:24 AM [facility] Radiology Study observation (narrative) [facility] MR ORBIT W WO CONTon 024 MR [...] of the major arterial structures in the [place]. The paranasal sinuses are clear. [...] Jewell MD on 09/24/2023 4:25 AM Normal [facility] MR Orbit WO and W contrast Raisa Shearer 09-24-2023 EXAM:MR ORBIT W WO CONT INDICATION: [...] of the major arterial structures in the [place]. The paranasal sinuses are clear. [...] Gilbert Jewell MD on 09/24/2023 4:25 AM Gilbert Gutierrez M D - 09/24/2023 EXAM:MR ORBIT W [...] of the major arterial structures in the [place]. The paranasal sinuses are clear. [...] Gilbert Jewell MD on 09/24/2023 4:25 AM [facility] (narrative) [facility] Orbit WO and W contrast I VOrdered By: Gilbert Jewell on 09-24-2023 [facility] Work Phone: Neutrophil cytoplasmic Ab IF Ql (S)on 09-24-2023 [facility] Reticulocyteson 09-24-2023 Reticulocytes/100 RBC (Bld) 2.3 % High 0.4 - 2.2 % [facility] Reticulocytes/100 RBC (Bld)o n 09-24-2023 Interpretation and review of laboratory results Abnormal [facility] RETICULOCYTE COUNT 2.3 % High 0.4-2.2 [facility] Comment on above: Performed By: #### C SHARATH, CMP, 1987-12, FEPR, 2276-4, 2284-8, 20110-3, 2132-9, 10129-6, 90427-9, 5130-0, 69493-2, 28951-8, 02868-2, 3357-1, 8092-9, 65605-3, 73848-3, 19916-6, 24205-2, 97183-6 #### [facility] ([id number]) [address] [place] [address], [address] [place] [address] ACUTE HEPATITIS PANELon 08-27 ANTI HCV W/PCR REFLX Non-Reactive Normal NRCT [facility] Comment on above: Result Comment: If recent infection suspected, recommend repeat testing (>2 months). Bwdxwi-ke-fmhvrr ratio is <0.80. Performed By: #### C SHARATH, KELVIN, 1987-12, FEPR, 2275-4, 2284-8, 03944-7, 2132-9, 51997-2, 71886-7, 5130-0, 56770-1, 68418-4, 07846-3, 3357-1, 8092-9, 09117-8, 90507-9, 03252-7, 54787-9, 50804-3 #### [facility] ([id number]) [address] [place] [address], [address] [place] [address] HEPATITIS A IGM Non-Reactive Normal NRCT [facility] Comment on above: Performed By: #### C SHARATH, CMP, 1987-12, FEPR, 2276-4, 2284-8, 17293-5, 2132-9, 65901-6, 16606-6, 5130-0, 54868-1, 28373-1, 76759-0, 3357-1, 8092-9, 41488-9, 18876-7, 98662-1, 07476-9, 06261-0 #### [facility] ([id number]) [address] [place] [address], [address] [place] [address] HEPATITIS B CORE IGM Negative Normal NEG [facility] Comment on above: Performed By: #### C BCA, CMP, 1987-12, FEPR, 2276-4, 2284-8, 06225-9, 2132-9, 28090-8, 96248-4, 5130-0, 27050-5, 55791-6, 21729-1, 3357-1, 8092-9, 89307-0, 84405-3, 39381-3, 62160-8, 14424-1 #### [facility] ([id number]) [address] [place] [address], [address] [place] [address] HEPATITIS B SURF AG Negative Normal NEG [facility] Comment on above: Performed By: #### C BCA, CMP, 1987-12, FEPR, 2276-4, 2284-8, 13357-8, 2132-9, 07809-2, 44476-7, 5130-0, 56728-1, 16731-0, 39976-5, 3357-1, 8092-9, 21184-8, 90324-9, 17757-5, 23115-7, 61129-5 #### [facility] ([id number]) [address] [place] [address], [address] [place] [address] SILVIA Screen w/ Reflexon 09-23 Nuclear Ab IA Ql (S) Positive Abnormal Negativ e[facility]: Testing performed using multiplex flow immunoassay. Eleven different antigens associated with systemic autoimmune diseases (dsDNA,Sm,Sm/GOLF BALL INSPECTOR,GOLF BALL INSPECTOR,Chromatin, SSA,SSB,Tiki-1,Scl70,Ribo P,Centromere B) are included in this screening test. ANTI CARDIOLIPIN AB IGG IGA IGMon 09-23-2023 MIRIAM IgA <2.0 Normal 0-19.9 [facility] Comment on above: Performed By: #### C BCA, CMP, 1987-12, FEPR, 2276-4, 2284-8, 57243-9, 2132-9, 47215-7, 43616-6, 5130-0, 53837-9, 23681-4, 46504-5, 3357-1, 8092-9, 45877-3, 98649-9, 97411-1, 00357-8, 39258-8 #### [facility] ([id number]) [address] [place] [address], [address] [place] [address] MIRIAM IgG <1.6 Normal 0-19.9 [facility] Comment on above: Performed By: #### C BCA, CMP, 1987-12, FEPR, 227-4, 2284-8, 78819-8, 2132-9, 67155-9, 46367-8, 5130-0, 43933-8, 47289-2, 06963-7, 3357-1, 8092-9, 99247-8, 79814-9, 59906-2, 30868-1, 49830-8 #### [facility] ([id number]) [address] [place] [address], [address] [place] [address] MIRIAM IgM <1.5 Normal 0-19.9 [facility] Comment on above: Performed By: #### C BCA, CMP, 1987-12, FEPR, 2276-4, 2284-8, 48982-0, 2132-9, 58468-0, 18710-4, 5130-0, 54031-8, 55960-4, 14317-1, 3357-1, 8092-9, 38077-1, 04628-4, 45052-6, 97497-0, 44721-0 #### [facility] ([id number]) [address], [address] [place] [address] Anileridine Ql (U)on 024 JO1 ANTIBODY <0.2 Normal <1.0 [facility] Comment on above: Performed By: #### C BCA, CMP, 1988-5, FEPR, 2276-4, 2284-8, 90706-7, 2132-9, 25223-1, 57598-3, 5130-0, 98956-4, 08739-8, 03772-7, 3357-1, 8092-9, 44592-8, 94254-0, 91052-1, 51251-8, 53345-0 #### [facility] ([id number]) [address] [facility], [address] [place] [address] Anti cardiolipin AB IgG IgA IgMon 09-23-2023 Cardiolipin IgA IA Qn (S) [facility] Cardiolipin IgG IA Qn (S) [facility] Cardiolipin IgM IA Qn (S) [facility] Anti-Chromatin IGGon 024 Chromatin Ab Ql 0.4 [facility] Comment on above: CLIA ID [id number] Anti-DNA antibody, double-st randedon 09-23-2023 DNA double strand Ab Qn (S) 1 [IU]/mL [facility] Comment on above: Interpretation-------- <5 Negative 5-9 Indeterminate >9 Positive CLIA ID [id number] Anti-Ribosomal P AB IGGon Ribosomal P IgG Qn (S) [facility] Comment on above: CLIA ID [id number] Anti-Mejia AB IGGon 09-23-19 24 Mejia extractable nuclear IgG Qn (S) [facility] Comment on above: CLIA ID [id number] BETA-2 GP1 AB PANELon 2023 BETA-2 GP1 IgA <2.0 Normal 0.0-19.9 [facility] Comment on above: Performed By: #### C BCA, CMP, 1987-12, FEPR, 2276-4, 2284-8, 53421-7, 2132-9, 44965-6, 49315-7, 5130-0, 38155-8, 15901-9, 13691-4, 3357-1, 8092-9, 72966-5, 36054-8, 52903-7, 37047-1, 10487-7 #### [facility] ([id number]) [address], [address] [place] [address] BETA-2 GP1 IgG <1.4 Normal 0.0-19.9 [facility] Comment on above: Performed By: #### C BCA, CMP, 1987-12, FEPR, 227-4, 2284-8, 94104-4, 2132-9, 00928-7, 36651-0, 5130-0, 99043-9, 81008-6, 35988-5, 3357-1, 8092-9, 01125-2, 84818-2, 16664-7, 32395-3, 92185-2 #### [facility] ([id number]) [address], [address] [place] [address] BETA-2 GP1 IgM 4.1 u/mL Normal 0.0-19.9 [facility] Comment on above: Performed By: #### C BCA, CMP, 1987-12, FEPR, 2276-4, 2284-8, 62091-1, 2132-9, 21394-3, 21403-7, 5130-0, 96608-9, 39866-6, 97938-3, 3357-1, 8092-9, 84898-8, 21956-3, 40121-0, 54147-8, 70257-2 #### [facility] ([id number]) [address], [address] [place] [address] Beta-2 glycoprotein antibodi eson 09-23-2023 Beta 2 glycoprotein 1 IgA IA Qn u/mL 0.0 - 19.9 u/mL [facility] Beta 2 glycoprotein 1 IgG IA Qn u/mL 0.0 - 19.9 u/mL [facility] Beta 2 glycoprotein 1 IgM IA Qn 4.1 u/mL 0.0 - 19.9 u/mL [facility] C-reactive proteinon 024 CRP [Mass/Vol] 13.3 mg/dL High 0.000 - 0.744 mg/dL [facility] CBC AND AUTO DIFFon 09-23-19 24 ABSOLUTE BASOPHIL 0.0 X10E9/L Normal 0.0-0.2 [facility] Comment on above: Performed By: #### C SHARATH, CMP, 1987-12, FEPR, 2276-4, 2284-8, 48653-2, 2132-9, 13930-6, 33023-3, 5130-0, 75211-2, 83042-6, 58069-7, 3357-1, 8092-9, 98340-0, 78376-8, 99169-2, 38910-5, 52142-7 #### [facility] ([id number]) [address], [address] [place] [address] ABSOLUTE NEUTROPHIL 11.5 X10E9/L High 1.5-6.6 [facility] Comment on above: Performed By: #### C BCA, CMP, 1987-12, FEPR, 2276-4, 2284-8, 54633-0, 213-9, 20334-4, 18770-0, 5130-0, 99940-1, 26110-7, 17259-3, 3357-1, 8092-9, 50406-8, 27311-4, 28955-9, 11733-2, 55804-9 #### [facility] ([id number]) [address], [address] [place] [address] Basophils/100 WBC (Bld) 0.2 % Normal [facility] Comment on above: Performed By: #### C BCA, CMP, 1987-12, FEPR, 2276-4, 2284-8, 23067-6, 2132-9, 58597-1, 85126-1, 5130-0, 41017-0, 63628-4, 42009-3, 3357-1, 8092-9, 72818-1, 05610-0, 84423-5, 37762-2, 51989-1 #### [facility] ([id number]) [address] [facility], [address] [place] [address] Eosinophils (Bld) [#/Vol] 0.0 10*3/uL Normal 0.0-0.4 [facility] Comment on above: Performed By: #### C BCA, CMP, 1987-12, FEPR, 2275-4, 2284-8, 10192-6, 2132-9, 54199-5, 88736-9, 5130-0, 46485-0, 57567-9, 63056-5, 3357-1, 8092-9, 95030-8, 43853-4, 05366-2, 03445-9, 90707-8 #### [facility] ([id number]) [address], [address] [place] [address] Eosinophils/100 WBC (Bld) 0.0 % Normal [facility] Comment on above: Performed By: #### C BCA, CMP, 1987-12, FEPR, 227-4, 2284-8, 59655-5, 2132-9, 05994-0, 42061-4, 5130-0, 61349-1, 11634-2, 84597-9, 3357-1, 8092-9, 91916-2, 43173-2, 85129-3, 47491-1, 92407-0 #### [facility] ([id number]) [address], [address] [place] [address] Erythrocyte distribution width (RBC) [Ratio] 14.4 % Normal 11.5-15.0 [facility] Comment on above: Performed By: #### C SHARATH, CMP, 1987-12, FEPR, 2276-4, 2284-8, 01864-7, 2132-9, 29083-8, 94114-7, 5130-0, 16055-9, 41741-8, 88155-3, 3357-1, 8092-9, 40694-6, 76809-6, 01421-3, 95916-2, 15102-8 #### [facility] ([id number]) [address], [address] [place] [address] Hematocrit (Bld) [Volume fraction] 27.8 % Low 35-47 [facility] Comment on above: Performed By: #### C SHARATH, KELVIN, 1987-12, FEPR, 2276-4, 2284-8, 59010-1, 2132-9, 80043-8, 72360-9, 5130-0, 85653-2, 35521-7, 16932-0, 3357-1, 8092-9, 37218-7, 19623-1, 13725-8, 22480-0, 10685-3 #### [facility] ([id number]) [address], [address] [place] [address] Hemoglobin (Bld) [Mass/Vol] 9.1 g/dL Low 11.7-15.5 [facility] Comment on above: Performed By: #### C SHARATH, CMP, 1987-12, FEPR, 2276-4, 2284-8, 41165-6, 2132-9, 65600-5, 44559-9, 5130-0, 08930-9, 56899-4, 87703-8, 3357-1, 8092-9, 53416-3, 48640-9, 45860-0, 73025-4, 94454-4 #### [facility] ([id number]) [address], [address] [place] [address] Lymphocytes (Bld) [#/Vol] 0.4 10*3/uL Low 1.0-3.5 [facility] Comment on above: Performed By: #### C BCA, CMP, 1987-12, FEPR, 2276-4, 2284-8, 07928-3, 2132-9, 00095-1, 24983-3, 5130-0, 17749-2, 27207-3, 70969-1, 3357-1, 8092-9, 85365-6, 61927-3, 55797-8, 30019-0, 21599-5 #### [facility] ([id number]) [address], [address] [place] [address] Lymphocytes/100 WBC (Bld) 3.3 % Normal [facility] Comment on above: Performed By: #### C BCA, CMP, 1987-12, FEPR, 2275-4, 2284-8, 36682-6, 2132-9, 15653-1, 85572-5, 5130-0, 92280-5, 98382-5, 84853-7, 3357-1, 8092-9, 77484-0, 73723-1, 50098-7, 80370-9, 03777-5 #### [facility] ([id number]) [address], [address] [place] [address] MCH (RBC) [Entitic mass] 27.8 pg Normal 27-34 [facility] Comment on above: Performed By: #### C BCA, CMP, 1987-12, FEPR, 2276-4, 2284-8, 93057-7, 2132-9, 47960-3, 27998-7, 5130-0, 86353-9, 97091-1, 56027-2, 3357-1, 8092-9, 68120-5, 27894-2, 21191-4, 76045-6, 69911-0 #### [facility] ([id number]) [address], [address] [place] [address] MCHC (RBC) [Mass/Vol] 32.7 g/dL Normal 32-36 [facility] Comment on above: Performed By: #### C BCA, CMP, 1987-12, FEPR, 2276-4, 2284-8, 57522-7, 2132-9, 85412-6, 95645-0, 5130-0, 82015-2, 81157-6, 96357-1, 3357-1, 8092-9, 03497-9, 04550-2, 27414-0, 66097-5, 73013-3 #### [facility] ([id number]) [address], [address] [place] [address] MCV (RBC) [Entitic vol] 85 fL Normal 80-100 [facility] Comment on above: Performed By: #### C BCA, CMP, 1987-12, FEPR, 2275-4, 2284-8, 89451-4, 2132-9, 94595-6, 52724-4, 5130-0, 39217-2, 92125-0, 39980-8, 3357-1, 8092-9, 31625-9, 96290-5, 26128-8, 18190-2, 05925-4 #### [facility] ([id number]) [address], [address] [place] [address] Monocytes (Bld) [#/Vol] 0.1 10*3/uL Normal 0-0.9 [facility] Comment on above: Performed By: #### C BCA, CMP, 1987-12, FEPR, 2276-4, 2284-8, 86562-7, 2132-9, 99947-7, 09236-2, 5130-0, 43197-6, 53665-2, 15753-9, 3357-1, 8092-9, 37014-2, 02778-8, 70338-0, 74296-8, 42331-9 #### [facility] ([id number]) [address], [address] [place] [address] Monocytes/100 WBC (Bld) 1.0 % Normal P [facility] Comment on above: Performed By: #### C BCA, CMP, 1987-12, FEPR, 2276-4, 2284-8, 66449-0, 2132-9, 12992-5, 13630-6, 5130-0, 07025-4, 60656-4, 51386-2, 3357-1, 8092-9, 08146-9, 06120-9, 33173-5, 99982-7, 26983-0 #### [facility] ([id number]) [address], [address] [place] [address] Neutrophils/100 WBC (Bld) 95.5 % Normal [facility] Comment on above: Performed By: #### C BCA, CMP, 1987-12, FEPR, 2275-4, 2283-8, 64826-8, 2132-9, 29369-0, 64576-3, 5130-0, 28564-8, 82632-9, 21729-0, 3357-1, 8092-9, 58456-0, 85889-9, 83837-8, 48821-4, 65799-0 #### [facility] ([id number]) [address], [address] [place] [address] Platelet mean volume (Bld) [Entitic vol] 6.2 fL Low 7-12 [facility] Comment on above: Performed By: #### C BCA, CMP, 1987-12, FEPR, 227-4, 2284-8, 66580-2, 2132-9, 59078-3, 17397-0, 5130-0, 69944-9, 83080-3, 35210-2, 3357-1, 8092-9, 60914-6, 53498-6, 46951-6, 59239-7, 28740-7 #### [facility] ([id number]) [address], [address] [place] [address] Platelets (Bld) [#/Vol] 924 10*3/uL High 150-450 [facility] Comment on above: Performed By: #### C SHARATH, CMP, 1987-12, FEPR, 2276-4, 2284-8, 97034-5, 2132-9, 85186-1, 55252-4, 5130-0, 59374-2, 95685-4, 09755-2, 3357-1, 8092-9, 39978-2, 37911-7, 15792-1, 93829-5, 26630-0 #### [facility] ([id number]) [address] [facility], [address] [place] [address] RBC COUNT 3.27 X10E12/L Low 3.80-5.20 [facility] Comment on above: Performed By: #### C SHARATH, CMP, 1987-12, FEPR, 2276-4, 2284-8, 65432-3, 2132-9, 05506-0, 24144-2, 5130-0, 57906-6, 27945-8, 12730-4, 3357-1, 8092-9, 38113-7, 86102-2, 91291-5, 62456-0, 38421-9 #### [facility] ([id number]) [address], [address] [place] [address] WBC (Bld) [#/Vol] 12.1 10*3/uL High 4.0-11.0 [facility] Comment on above: Performed By: #### C BCA, CMP, 1987-12, FEPR, 2276-4, 2284-8, 02031-6, 2132-9, 95651-8, 91082-2, 5130-0, 74544-6, 46471-6, 84192-0, 3357-1, 8092-9, 49921-2, 05448-0, 01563-9, 64589-6, 29780-2 #### [facility] ([id number]) [address], [address] [place] [address] ABSOLUTE BASOPHIL 0.2 X10E9/L Normal 0.0-0.2 [facility] Comment on above: Performed By: #### C BCA, CMP, 1987-12, FEPR, 6-4, 2284-8, 80460-6, 2132-9, 69889-8, 02723-4, 5130-0, 63959-7, 04800-3, 76484-1, 3357-1, 8092-9, 53189-8, 40707-9, 39731-4, 93237-6, 78227-0 #### [facility] ([id number]) [address], [address] [place] [address] ABSOLUTE NEUTROPHIL 10.4 X10E9/L High 1.5-6.6 [facility] Comment on above: Performed By: #### C BCA, CMP, 1987-12, FEPR, 2275-4, 4-8, 08686-7, 2131-9, 32858-4, 83292-3, 5130-0, 51414-5, 25940-0, 02409-8, 3357-1, 8092-9, 71935-4, 21023-9, 09103-6, 50849-6, 24875-6 #### [facility] ([id number]) [address], [address] [place] [address] Basophils/100 WBC (Bld) 2.1 % Normal P [facility] Comment on above: Performed By: #### C BCA, CMP, 1987-12, FEPR, 2275-4, 2284-8, 60351-9, 2132-9, 45996-7, 01232-7, 5130-0, 92136-8, 94543-6, 78623-3, 3357-1, 8092-9, 41033-5, 34633-4, 68359-6, 35461-3, 49445-1 #### [facility] ([id number]) [address] [place] [address], [address] [place] [address] Eosinophils (Bld) [#/Vol] 0.0 10*3/uL Normal 0.0-0.4 [facility] Comment on above: Performed By: #### C KELVIN EARLY, 1987-12, FEPR, 2276-4, 2284-8, 21129-5, 2132-9, 57361-1, 36308-0, 5130-0, 14093-9, 07892-7, 78407-7, 3357-1, 8092-9, 37114-1, 95606-1, 25506-3, 79129-0, 00109-1 #### [facility] ([id number]) [address] [place] [address], [address] [address] Eosinophils/100 WBC (Bld) 0.0 % Normal [facility] Comment on above: Performed By: #### C KELVIN EARLY, 1987-12, FEPR, 2276-4, 2284-8, 76959-5, 2132-9, 39036-8, 14334-3, 5130-0, 29139-7, 64576-1, 20939-1, 3357-1, 8092-9, 94841-9, 78776-4, 22113-2, 31171-8, 68020-3 #### [facility] ([id number]) [address] [place] [address], [address] [place] [address] Erythrocyte distribution width (RBC) [Ratio] 14.6 % Normal 11.5-15.0 [facility] Comment on above: Performed By: #### C KELVIN EARLY, 1987-12, FEPR, 2276-4, 2284-8, 90899-2, 2132-9, 16236-9, 26532-7, 5130-0, 79303-7, 16312-5, 59715-1, 3357-1, 8092-9, 54808-4, 15216-2, 96927-6, 36520-1, 23367-3 #### [facility] ([id number]) [address] [place] [address], [address] [place] [address] Hematocrit (Bld) [Volume fraction] 26.2 % Low 35-47 [facility] Comment on above: Performed By: #### C SHARATH, [facility], 1987-12, FEPR, 2276-4, 2284-8, 52563-1, 2132-9, 48647-7, 61580-6, 5130-0, 49802-1, 63328-9, 37942-0, 3357-1, 8092-9, 65191-1, 57020-3, 32647-3, 30914-6, 84289-0 #### [facility] ([id number]) [address] [place] [address], [address] [place] [address] Hemoglobin (Bld) [Mass/Vol] 8.6 g/dL Low 11.7-15.5 [facility] Comment on above: Performed By: #### C SHARATH, [facility], 1987-12, FEPR, 2276-4, 2284-8, 42478-5, 2132-9, 07329-5, 87857-6, 5130-0, 18754-4, 45172-8, 57045-2, 3357-1, 8092-9, 42611-5, 31374-6, 13928-0, 53984-8, 84014-9 #### [facility] ([id number]) [address] [place] [address], [address] [place] [address] Lymphocytes (Bld) [#/Vol] 0.4 10*3/uL Low 1.0-3.5 [facility] Comment on above: Performed By: #### C SHARATH, CMP, 1987-12, FEPR, 2276-4, 2284-8, 23052-2, 2132-9, 12770-4, 04867-2, 5130-0, 16590-5, 77739-4, 21005-0, 3357-1, 8092-9, 32295-4, 28517-8, 54992-9, 02029-4, 15535-0 #### [facility] ([id number]) [address], [address] [place] [address] Lymphocytes/100 WBC (Bld) 3.6 % Normal [facility] Comment on above: Performed By: #### C SHARATH, CMP, 1987-12, FEPR, 2276-4, 2284-8, 37425-7, 2132-9, 90566-2, 29965-8, 5130-0, 28184-3, 05504-9, 46953-2, 3357-1, 8092-9, 52254-2, 42212-2, 94025-9, 21761-3, 51518-5 #### [facility] ([id number]) [address], [address] [place] [address] MCH (RBC) [Entitic mass] 28.1 pg Normal 27-34 [facility] Comment on above: Performed By: #### C SHARATH, CMP, 1987-12, FEPR, 2276-4, 2284-8, 22008-9, 2132-9, 49624-5, 95328-3, 5130-0, 32462-4, 63185-1, 91193-1, 3357-1, 8092-9, 90993-8, 98199-9, 11852-0, 86892-4, 13651-4 #### [facility] ([id number]) [address], [address] [place] [address] MCHC (RBC) [Mass/Vol] 32.9 g/dL Normal 32-36 [facility] Comment on above: Performed By: #### C BCA, CMP, 1987-12, FEPR, 2276-4, 2284-8, 51141-1, 2132-9, 15034-0, 43057-5, 5130-0, 49344-5, 15146-4, 12302-2, 3357-1, 8092-9, 78313-2, 87639-9, 92072-1, 70083-5, 15492-5 #### [facility] ([id number]) [address], [address] [place] [address] MCV (RBC) [Entitic vol] 85 fL Normal 80-100 [facility] Comment on above: Performed By: #### C BCA, CMP, 1987-12, FEPR, 2276-4, 2284-8, 80644-2, 2132-9, 33673-4, 89530-7, 5130-0, 07730-5, 27604-3, 18115-4, 3357-1, 8092-9, 18444-5, 53173-2, 52255-3, 36158-9, 26739-6 #### [facility] ([id number]) [address], [address] [place] [address] Monocytes (Bld) [#/Vol] 0.1 10*3/uL Normal 0-0.9 [facility] Comment on above: Performed By: #### C BCA, CMP, 1987-12, FEPR, 2276-4, 2284-8, 61323-3, 2132-9, 09203-2, 39161-6, 5130-0, 77648-6, 85316-1, 62376-1, 3357-1, 8092-9, 62323-8, 25371-6, 71095-4, 18782-3, 96379-8 #### [facility] ([id number]) [address], [address] [place] [address] Monocytes/100 WBC (Bld) 1.0 % Normal [facility] Comment on above: Performed By: #### C SHARATH, CMP, 1987-12, FEPR, 2276-4, 2284-8, 44413-9, 2132-9, 50573-9, 44785-4, 5130-0, 06346-7, 66854-9, 08979-1, 3357-1, 8092-9, 68472-0, 83557-8, 14748-6, 03895-1, 98260-5 #### [facility] ([id number]) [address], [address] [place] [address] Neutrophils/100 WBC (Bld) 93.3 % Normal [facility] Comment on above: Performed By: #### C SHARATH, CMP, 1987-12, FEPR, 2276-4, 2284-8, 20744-8, 2132-9, 75514-3, 67366-0, 5130-0, 57027-7, 67502-8, 65859-2, 3357-1, 8092-9, 08777-0, 81233-6, 70954-7, 19424-1, 10761-0 #### [facility] ([id number]) [address], [address] [place] [address] Platelet mean volume (Bld) [Entitic vol] 6.3 fL Low 7-12 [facility] Comment on above: Performed By: #### C BCA, CMP, 1987-12, FEPR, 2276-4, 2284-8, 05471-9, 2132-9, 11240-9, 97582-0, 5130-0, 07341-3, 41463-2, 60739-9, 3357-1, 8092-9, 93878-0, 52121-5, 98880-4, 14014-5, 46556-4 #### [facility] ([id number]) [address], [address] [place] [address] Platelets (Bld) [#/Vol] 917 10*3/uL High 150-450 [facility] Comment on above: Performed By: #### C SHARATH, KELVIN, 1987-12, FEPR, 2276-4, 2284-8, 79268-8, 2132-9, 34737-4, 67332-8, 5130-0, 13317-7, 16449-9, 09350-2, 3357-1, 8092-9, 99299-7, 96352-3, 56522-0, 60107-8, 58614-9 #### [facility] ([id number]) [address], [address] [place] [address] RBC COUNT 3.07 X10E12/L Low 3.80-5.20 [facility] Comment on above: Performed By: #### C SHARATH, KELVIN, 1987-12, FEPR, 227-4, 2284-8, 95092-0, 2132-9, 85554-9, 78375-0, 5130-0, 34832-6, 35198-0, 60404-9, 3357-1, 8092-9, 36476-0, 03086-0, 39432-9, 49470-8, 95420-2 #### [facility] ([id number]) [address], [address] [place] [address] WBC (Bld) [#/Vol] 11.1 10*3/uL High 4.0-11.0 [facility] Comment on above: Performed By: #### C SHARATH, CMP, 1987-12, FEPR, 2276-4, 2284-8, 46397-0, 2132-9, 03044-7, 57219-3, 5130-0, 01757-7, 15339-2, 33212-6, 3357-1, 8092-9, 43317-5, 38105-2, 54493-3, 61765-7, 59853-3 #### [facility] ([id number]) [address], [address] [place] [address] CBC auto differentialon 08-27 Basophils (Bld) [#/Vol] 0.0 10*3/uL [facility] Basophils/100 WBC (Bld) 0.2 % [facility] Eosinophils (Bld) [#/Vol] 0.0 10*3/uL [...] Interpretation and review of laboratory results Abnormal [facility] Lymphocytes (Bld) [#/Vol] 0.4 10*3/uL Low [facility] Lymphocytes/100 WBC (Bld) 3.3 % [facility] MCH (RBC) [Entitic mass] 27.8 pg 27 - 34 pg [facility] MCHC (RBC) [Mass/Vol] 32.7 g/dL 32 - 36 g/dL [facility] MCV (RBC) [Entitic vol] 85 fL 80 - 100 fL [facility] Monocytes (Bld) [#/Vol] 0.1 10*3/uL [facility] Monocytes/100 WBC (Bld) 1.0 % [facility] Neutrophils (Bld) [#/Vol] 11.5 10*3/uL High [facility] Neutrophils/100 WBC (Bld) 95.5 % [facility] Platelet mean volume (Bld) [Entitic vol] 6.2 fL Low 7 - 12 fL [facility] Platelets (Bld) [#/Vol] 924 10*3/uL High [facility] RBC (Bld) [#/Vol] 3.27 10*6/uL Low [facility] WBC corrected for nucl RBC Auto (Bld) [#/Vol] 12.1 High [facility] Basophils (Bld) [#/Vol] 0.2 10*3/uL [facility] Basophils/100 WBC (Bld) 2.1 % [facility] Eosinophils (Bld) [#/Vol] 0.0 10*3/uL [facility] Eosinophils/100 WBC (Bld) 0.0 % [facility] Erythrocyte distribution width (RBC) [Ratio] 14.6 % 11.5 - 15.0 % [facility] Hematocrit (Bld) [Volume fraction] 26.2 % Low 35 - 47 % [facility] Hemoglobin (Bld) [Mass/Vol] 8.6 g/dL Low 11.7 - 15.5 g/dL [facility] Interpretation and review of laboratory results Abnormal [facility] Lymphocytes (Bld) [#/Vol] 0.4 10*3/uL Low [facility] Lymphocytes/100 WBC (Bld) 3.6 % [facility] MCH (RBC) [Entitic mass] 28.1 pg 27 - 34 pg [facility] MCHC (RBC) [Mass/Vol] 32.9 g/dL 32 - 36 g/dL P [facility] MCV (RBC) [Entitic vol] 85 fL 80 - 100 fL [facility] Monocytes (Bld) [#/Vol] 0.1 10*3/uL [facility] Monocytes/100 WBC (Bld) 1.0 % P [facility] Neutrophils (Bld) [#/Vol] 10.4 10*3/uL High [facility] Neutrophils/100 WBC (Bld) 93.3 % [facility] Platelet mean volume (Bld) [Entitic vol] 6.3 fL Low 7 - 12 fL [facility] Platelets (Bld) [#/Vol] 917 10*3/uL High [facility] RBC (Bld) [#/Vol] 3.07 10*6/uL Low [facility] WBC corrected for nucl RBC Auto (Bld) [#/Vol] 11.1 High [facility] COMPREHENSIVE METABOLIC PANE Cole 09-23-2023 Albumin [Mass/Vol] 3.0 g/dL Low 3.2-5.3 [facility] Comment on above: Performed By: #### C BCA, CMP, 1987-, FEPR, 2276-4, 2284-8, 35857-7, 2132-9, 65828-4, 80067-3, 5130-0, 39841-3, 30196-2, 87104-2, 3357-1, 8092-9, 84802-6, 82727-5, 56870-9, 70446-4, 86996-5 #### [facility] ([id number]) [address], [address] [place] [address] ALP [Catalytic activity/Vol] 227 U/L High 39-130 [facility] Comment on above: Performed By: #### C BCA, CMP, 1987-12, FEPR, 2276-4, 2284-8, 55196-1, 2132-9, 07105-0, 66089-0, 5130-0, 50347-1, 45626-7, 83201-8, 3357-1, 8092-9, 80827-0, 78553-6, 36003-7, 23357-4, 91140-7 #### [facility] ([id number]) [address], [address] [place] [address] ALT [Catalytic activity/Vol] 11 U/L Normal 0-31 [facility] Comment on above: Performed By: #### C BCA, CMP, 1987-12, FEPR, 2276-4, 2284-8, 90783-7, 2132-9, 96775-0, 74193-0, 5130-0, 69893-7, 78532-1, 27067-8, 3357-1, 8092-9, 20594-2, 33179-3, 63973-7, 93852-0, 73932-2 #### [facility] ([id number]) [address], [address] [place] [address] Anion gap [Moles/Vol] 13 mmol/L Normal 5-15 [facility] Comment on above: Performed By: #### C BCA, CMP, 1987-12, FEPR, 2276-4, 2284-8, 65045-2, 2132-9, 08656-8, 40293-0, 5130-0, 49730-1, 75128-2, 74938-3, 3357-1, 8092-9, 73606-5, 60972-7, 37398-5, 01923-5, 49990-8 #### [facility] ([id number]) [address], [address] [place] [address] AST [Catalytic activity/Vol] 12 U/L Normal 0-41 [facility] Comment on above: Performed By: #### C BCA, CMP, 1987-12, FEPR, 2276-4, 2284-8, 62129-8, 2132-9, 41021-1, 21854-4, 5130-0, 15965-5, 67491-9, 24908-5, 3357-1, 8092-9, 13208-7, 81518-3, 83996-0, 68556-9, 55905-8 #### [facility] ([id number]) [address], [address] [place] [address] Bilirubin [Mass/Vol] 0.6 mg/dL Normal 0.3-1.2 [facility] Comment on above: Performed By: #### C BCA, CMP, 1987-12, FEPR, 2276-4, 2284-8, 50669-2, 2132-9, 50685-6, 95333-4, 5130-0, 15279-0, 14898-1, 66192-9, 3357-1, 8092-9, 66813-6, 92401-2, 97705-8, 93306-9, 22267-3 #### [facility] ([id number]) [address], [address] [place] [address] Calcium [Mass/Vol] 8.6 mg/dL Normal 8.5-10.5 [facility] Comment on above: Performed By: #### C BCA, CMP, 1987-12, FEPR, 2276-4, 2284-8, 71065-9, 2132-9, 06142-7, 74935-6, 5130-0, 58011-7, 12721-9, 19280-5, 3357-1, 8092-9, 53591-2, 06804-8, 20759-1, 59019-6, 95906-0 #### [facility] ([id number]) [address], [address] [place] [address] Chloride [Moles/Vol] 101 mmol/L Normal 98-109 [facility] Comment on above: Performed By: #### C BCA, CMP, 1987-12, FEPR, 2275-4, 2284-8, 38154-6, 2132-9, 48437-1, 91928-3, 5130-0, 21779-4, 71966-7, 99779-6, 3357-1, 8092-9, 59554-8, 43790-1, 44379-3, 43909-5, 19737-4 #### [facility] ([id number]) [address], [address] [place] [address] CO2 [Moles/Vol] 25 mmol/L Normal 22-32 [facility] Comment on above: Performed By: #### C BCA, CMP, 1987-12, FEPR, 227-4, 2284-8, 69160-2, 2132-9, 66177-1, 49109-7, 5130-0, 60535-9, 96773-9, 89961-5, 3357-1, 8092-9, 33112-5, 94942-9, 89039-5, 28366-6, 17174-6 #### [facility] ([id number]) [address] [place] [address], [address] [place] [address] Creatinine [Mass/Vol] 0.49 mg/dL Normal 0.40-1.00 [facility] Comment on above: Result Comment: METH OD TRACEABLE TO IDMS STANDARD Performed By: #### C SHARATH, CMP, 1987-12, FEPR, 2276-4, 2284-8, 58147-2, 2132-9, 11759-7, 79782-0, 5130-0, 11110-4, 25678-1, 97732-0, 3357-1, 8092-9, 94141-2, 35993-7, 77891-9, 91485-2, 46313-6 #### [facility] ([id number]) [address] [place] [address], [address] [address] eGFR (CKD-EPI) NON-RACE DEPENDENT >90 Normal >59 [facility] Comment on above: Result Comment: Reported eGFR is based on the CKD-EPI 2020 equation that does not use a race coefficient. Performed By: #### C SHARATH, KELVIN, 1987-12, FEPR, 227-4, 2284-8, 78484-1, 2132-9, 94067-2, 21972-3, 5130-0, 99134-9, 45640-7, 66934-0, 3357-1, 8092-9, 36759-3, 12209-3, 53744-2, 28954-2, 59358-1 #### [facility] ([id number]) [address] [place] [address], [facility] [address] [place] [address] Glucose [Mass/Vol] 141 mg/dL High 65-99 [facility] Comment on above: Performed By: #### C SHARATH, CMP, 1987-12, FEPR, 2276-4, 2284-8, 37916-6, 2132-9, 48266-0, 66755-9, 5130-0, 42270-5, 93767-1, 04723-6, 3357-1, 8092-9, 21596-2, 16950-2, 74975-0, 76871-6, 71008-6 #### [facility] ([id number]) [address], [address] [place] [address] Potassium [Moles/Vol] 3.7 mmol/L Normal 3.5-5.0 [facility] Comment on above: Performed By: #### C BCA, CMP, 1987-12, FEPR, 2275-4, 2283-8, 64766-8, 2131-9, 15479-3, 16525-7, 5130-0, 53509-8, 53217-7, 34852-7, 3357-1, 8092-9, 17728-3, 26736-1, 87137-1, 91953-2, 34333-4 #### [facility] ([id number]) [address], [address] [place] [address] Protein [Mass/Vol] 6.9 g/dL Normal 6.0-8.0 [facility] Comment on above: Performed By: #### C BCA, CMP, 1987-12, FEPR, 2275-4, 2283-8, 70502-3, 213-9, 13341-5, 26016-5, 5130-0, 26393-9, 51446-9, 57348-0, 3357-1, 8092-9, 70897-5, 15595-4, 90531-3, 79694-8, 60967-8 #### [facility] ([id number]) [address], [address] [place] [address] Sodium [Moles/Vol] 139 mmol/L Normal 134-146 [facility] Comment on above: Performed By: #### C BCA, CMP, 1987-12, FEPR, 227-4, 2284-8, 29620-7, 2132-9, 59572-7, 26343-3, 5130-0, 22463-9, 47693-4, 00128-4, 3357-1, 8092-9, 51405-6, 47115-4, 36699-3, 25369-3, 78651-7 #### [facility] ([id number]) [address] [facility] [address], [address] [place] [address] Urea nitrogen [Mass/Vol] 14 mg/dL Normal 5-27 [facility] Comment on above: Performed By: #### C BCA, CMP, 1987-, FEPR, 2276-4, 2284-8, 69326-5, 213-9, 90537-5, 96820-3, 5130-0, 58560-7, 85240-5, 74650-4, 3357-1, 8092-9, 35220-4, 84001-2, 20478-9, 94108-3, 82089-4 #### [facility] ([id number]) [address] [facility], [address] [place] [address] CRP [Mass/Vol]on 09-23-2023 C REACTIVE PROTEIN 13.3 mg/dL High 0.000-0.744 [facility] Comment on above: Performed By: #### C BCA, CMP, 1987-, FEPR, 2276-4, 2284-8, 89057-3, 2-9, 43471-3, 27905-8, 5130-0, 90589-1, 30109-8, 36433-4, 3357-1, 8092-9, 23357-0, 96360-0, 23999-5, 06642-1, 10048-0 #### [facility] ([id number]) [address] [facility] [address], [address] [place] [address] Centromere ABon 09-23-2023 Centromere protein B Ab Ql (S) High [facility] Comment on above: CLIA ID [id number] Centromere protein B Ab Ql ( S)on 09-23-2023 Interpretation and review of laboratory results Abnormal [facility] CENTROMERE ANTIBODY >8.0 High <1.0 [facility] Comment on above: Performed By: #### C BCA, CMP, 1987-, FEPR, 2276-4, 2284-8, 29336-2, 2132-9, 19707-1, 67140-8, 5130-0, 50456-9, 08655-9, 01433-4, 3357-1, 8092-9, 42218-0, 17817-3, 42819-6, 06538-4, 86874-3 #### [facility] ([id number]) [address] [place] [address], [address] [place] [address] Chromatin Ab Qlon 09-23-2023 CHROMATIN AB IGG 0.4 AI Normal <1.0 [facility] Comment on above: Performed By: #### C BCA, CMP, 1987-12, FEPR, 2276-4, 2284-8, 80704-2, 2132-9, 10077-7, 77430-3, 5130-0, 31149-1, 11976-6, 78575-4, 3357-1, 8092-9, 42687-8, 38962-3, 08910-5, 60809-9, 81006-7 #### [facility] ([id number]) [address] [place] [address], [address] [place] [address] Clinical Pathologyon 024 Clinical Pathology Normal [facility] Comment on above: Result Comment: [facility] [address] [place] [address] Clinical Pathology Report Patient Name:JOSE DAVID:1945 (Age: 78)Gender:FTaken:4Reported:4Physician(s):Olga Pan M.D. ([phone])Copy To: Rec. #:[id number]: #[id number] Final Pathologic Diagnosis Hypoalbuminemia with increase in acute phase reactants. No monoclonal bands identified. Report Electronically Signed Out 09/27/2023kevin Bains MD Interpretation performed at [facility], [address] [place] [address], License number: [id number]. Clinical History E53.8, H53.8, R29.90. SERUM PROTEIN ELECTROPHORESIS SAMPLE NO: [id number] ELECTROPHORETIC FRACTION CONCENTRATIONS (g/dL) PATIENT REFERENCE RANGE [...] IgA : 180 IgM : 285 Free [place]: 2.91 Free Lambda: 2.38 Free [place]/Lambda ratio: 1.22 Specimen(s) Received 1: Serum Protein Electrophoresis 2: Serum IEP Fee Codes(s): 1; 37644-54 2; 36033-59 Clinical Pathology Blood Sme ar Reviewon 09-23-2023 Clinical Pathology Blood Smear Review Normal [facility] Comment on above: Result Comment: [facility] [address] [place] [address] Clinical Pathology Report Patient Name:JOSE DAVID:1945 (Age: 78)Gender:FTaken:4Reported:4Physician(s):Olga Pan M.D. ([phone])Copy To: Rec. #:[id number]: #[id number] Final Pathologic Diagnosis Peripheral blood smear: Neutrophilic [...] Out hna/09/26/2023Og Martinez M.D. [facility], [address] [place] [address], License number: [id number]. Clinical History R29.9. BLOOD SMEAR EVALUATION CBC (09/23/2023 0818): WBC = 12.1 X10E9/L; HGB = 9.1 g/dL; HCT = 27.8%; MCV = 85 fL; PLT = 924 X10E9/L OTHER LAB DATA: Noncontributory. BLOOD SMEAR: Leukocytes: Neutrophilic leukocytosis with cytotoxic changes and lymphocytopenia. Erythrocytes: Moderate normocytic normochromic anemia. Platelets: Thrombocytosis. Specimen(s) Received Blood Smear Review Fee Codes(s): 1; 18796 Cobalamin (Vitamin B12) [Mas s/Vol]on 09-23-2023 [facility] Comprehensive metabolic pane cole 09-23-2023 Albumin [Mass/Vol] 3.0 g/dL Low 3.2 - 5.3 g/dL [facility] ALP [Catalytic activity/Vol] 227 U/L High 39 - 130 U/L [facility] ALT No additional P-5'-P [Catalytic activity/Vol] 11 U/L 0 - 31 U/L [facility] Anion gap [Moles/Vol] 13 mmol/L 5 - 15 mmol/L [facility] AST [Catalytic activity/Vol] 12 U/L 0 - 41 U/L [facility] Bilirubin [Mass/Vol] 0.6 mg/dL 0.3 - 1 .2 mg/dL [facility] Calcium [Mass/Vol] 8.6 mg/dL 8.5 - 10. 5 mg/dL [facility] Chloride [Moles/Vol] 101 mmol/L 98 - 10 9 mmol/L [facility] CO2 [Moles/Vol] 25 mmol/L 22 - 32 mmol/L [facility] Creatinine [Mass/Vol] 0.49 mg/dL 0.40 - 1.00 mg/dL [facility] Comment on above: METHOD TRACEABLE TO [facility] STANDARD eGFR (CKD-EPI)non-race dependent - PINF [facility] Comment on above: Reported eGFR is based on the CKD-EPI 2020 equation that does not use a race coefficient. Glucose [Mass/Vol] 141 mg/dL High 65 - 99 mg/dL [facility] Potassium [Moles/Vol] 3.7 mmol/L 3.5 - 5.0 mmol/L [facility] Protein [Mass/Vol] 6.9 g/dL 6.0 - 8.0 g/dL [facility] Sodium [Moles/Vol] 139 mmol/L 134 - 146 mmol/L [facility] Urea nitrogen [Mass/Vol] 14 mg/dL 5 - 27 mg/d L [facility] DNA double strand Ab Qn (S)o n 09-23-2023 DOUBLE STRANDED DNA 1 IU/ML Normal <5 [facility] Comment on above: Result Comment: Interpretation-------- <5 Negative 5-9 Indeterminate >9 Positive Performed By: #### C BCA, CMP, 1988-5, FEPR, 2276-4, 2284-8, 25801-9, 2132-9, 52645-9, 00627-8, 5130-0, 89571-6, 33754-3, 73170-0, 3357-1, 8092-9, 76096-5, 89442-2, 99735-4, 47645-9, 89031-2 #### [facility] ([id number]) [address] [place] [address], [address] [place] [address] Direct Coombson 09-23-2023 Polyspecific HENRRY Negative [facility] ESR Photometric method (Bld) [Velocity]on 09-23-2023 Interpretation and review of laboratory results Abnormal [facility] ESR, ERYTHROCYTE SEDIMENTATION RATE 114 mm/h High 0-30 [facility] Comment on above: Performed By: #### C SHARATH, KELVIN, 1987-12, FEPR, 2275-4, 2284-8, 32785-0, 2132-9, 22184-4, 39992-1, 5130-0, 87028-5, 42874-6, 21155-1, 3357-1, 8092-9, 06121-1, 87705-8, 61900-6, 32859-0, 37876-5 #### [facility] ([id number]) [address] [facility], [address] [place] [address] Erythrocyte Sedimentation Ra te (ESR)on 09-23-2023 ESR Photometric method (Bld) [Velocity] 114 mm/h High 0 - 30 mm/h [facility] FERRITINon 09-23-2023 Ferritin [Mass/Vol] 478 ng/mL High 11-307 [facility] Comment on above: Performed By: #### C SHARATH, KELVIN, 1987-12, FEPR, 2275-, 2283-8, 21698-3, 2131-9, 94522-4, 57167-7, 5130-0, 35560-7, 80730-5, 71997-0, 3357-1, 8092-9, 80764-6, 80017-0, 91041-4, 45039-7, 63622-4 #### [facility] ([id number]) [address] [facility], [address] [place] [address] FLOW CYTOMETRYon 09-23-2023 FLOW CYTOMETRY SEE SEPARATE REPORT, REVIEWED BY PATHOLOGIST Normal [facility] Comment on above: Performed By: #### C SHARATH, KELVIN, 1987-12, FEPR, 2275-4, 2284-8, 62444-0, 2132-9, 14896-1, 38295-9, 5130-0, 89317-5, 95680-6, 98087-4, 3357-1, 8092-9, 61910-9, 53379-5, 86902-0, 16958-1, 12041-6 #### [facility] ([id number]) [address] [place] [address], [address] [place] [address] Ferritinon 09-23-2023 Ferritin [Mass/Vol] 478 ng/mL High 11 - 307 ng/mL [facility] Ferritin [Mass/Vol]on 2023 Interpretation and review of laboratory results Abnormal [facility] Folateon 09-23-2023 Folate [Mass/Vol] 13.0 ng/mL 5.8 - PINF ng/mL [facility] Comment on above: NEW REFERENCE RANGE Folate [Mass/Vol]on 09-23-19 24 [facility] FOLIC ACID 13.0 ng/mL Normal >5.8 [facility] Comment on above: Result Comment: NEW REFERENCE RANGE Performed By: #### C BCA, CMP, 1987-12, FEPR, 2275-4, 4-8, 32627-0, 2131-9, 55813-8, 24645-8, 5130-0, 95457-4, 62392-4, 08835-8, 3357-1, 8092-9, 16859-2, 44936-4, 59547-3, 58216-5, 20390-3 #### [facility] ([id number]) [address] [place] [address], [address] [place] [address] Haptoglobinon 09-23-2023 Haptoglobin Nephelometry [Mass/Vol] 613 mg/dL High 32 - 228 mg/dL [facility] Haptoglobin Nephelometry [Ma ss/Vol]on 09-23-2023 Interpretation and review of laboratory results Abnormal [facility] HAPTOGLOBIN 613 mg/dL High 32-228 [facility] Comment on above: Performed By: #### C BCA, CMP, 1987-12, FEPR, 2276-4, 2284-8, 98072-0, 2131-9, 94279-3, 00914-1, 5130-0, 96524-3, 74971-9, 26243-2, 3357-1, 8092-9, 81376-1, 72313-6, 72268-4, 34029-6, 18326-6 #### [facility] ([id number]) [facility], [address] [place] [address] Hepatitis panel, acuteon HAV IgM IA Ql Non-Reactive Non-Reactive ^Non-Reactiv e [facility] HBV core IgM IA Ql Negative Negative^ Neg ative [facility] HBV surface Ag IA Ql Negative Negativ e^Neg ative [facility] HCV Ab IA Ql Non-Reactive Non-Reactive ^Non-Reactiv e [facility] Comment on above: If recent infection suspected, recommend repeat testing (>2 months). Heqbqi-lt-hfmhxa ratio is <0.80. [facility] Homocysteine [Moles/Vol]on 0 09-23-2023 HOMOCYSTEINE 9.29 mcmol/L Normal 3.36-20.44 [facility] Comment on above: Performed By: #### C BCA, CMP, 1987-12, FEPR, 2275-4, 4-8, 50945-8, 2132-9, 03082-1, 67047-0, 5130-0, 26872-4, 45886-1, 14843-6, 3357-1, 8092-9, 58526-7, 62522-1, 29321-5, 76382-6, 85786-2 #### [facility] ([id number]) [address] [facility], [address] [place] [address] [facility] Homocysteine totalon 024 Homocysteine [Moles/Vol] 9.29 umol/L [facility] IMMUNOELECTROPHORESIS FOR TH ERAPY MONITORINGon 09-23-2023 FREE KECIA/LAMBD RATIO 1.22 Normal 0.26-1.65 [facility] Comment on above: Performed By: #### C BCA, CMP, 1987-12, FEPR, 2276-4, 2284-8, 70344-5, 2132-9, 49963-8, 81351-9, 5130-0, 99461-4, 53867-6, 52120-4, 3357-1, 8092-9, 78339-7, 25714-7, 53808-0, 51198-7, 97833-1 #### [facility] ([id number]) [address] [facility], [address] [place] [address] FREE KAPPA LT CHAINS 2.91 mg/dL High 0.33-1.94 [facility] Comment on above: Performed By: #### C SHARATH, CMP, 1987-12, FEPR, 6-4, 2284-8, 94006-0, 2132-9, 43858-5, 00394-7, 5130-0, 44045-9, 53038-5, 31263-9, 3357-1, 8092-9, 50501-8, 30918-8, 29831-9, 74746-7, 95569-9 #### [facility] ([id number]) [address] [facility], [address] [place] [address] FREE LAMBDA LT CHAINS 2.38 mg/dL Normal 0.57-2.63 [facility] Comment on above: Performed By: #### C BCA, CMP, 1987-12, FEPR, 6-4, 2284-8, 25134-7, 2132-9, 97846-7, 14947-0, 5130-0, 09128-9, 84504-0, 74240-9, 3357-1, 8092-9, 80751-5, 31582-8, 65834-7, 58936-0, 81795-9 #### [facility] ([id number]) [address] [facility], [address] [place] [address] IgA [Mass/Vol] 180 mg/dL Normal 68-378 [facility] Comment on above: Performed By: #### C BCA, CMP, 1987-12, FEPR, 2276-4, 2284-8, 63348-5, 2132-9, 42608-4, 55080-6, 5130-0, 12948-3, 89565-0, 23290-8, 3357-1, 8092-9, 28557-4, 16798-6, 96599-1, 56903-6, 79531-0 #### [facility] ([id number]) [address] [facility], [address] [place] [address] IgG [Mass/Vol] 992 mg/dL Normal 635-1741 [facility] Comment on above: Performed By: #### C SHARATH, KELVIN, 1987-12, FEPR, 2275-4, 2284-8, 21579-9, 2132-9, 91929-2, 94197-9, 5130-0, 79550-6, 44472-5, 80570-6, 3357-1, 8092-9, 03357-2, 01989-5, 68499-1, 44470-8, 89948-9 #### [facility] ([id number]) [facility], [address] [place] [address] IgM [Mass/Vol] 285 mg/dL High 45-281 [facility] Comment on above: Performed By: #### C SHARATH, KELVIN, 1987-12, FEPR, 2275-4, 4-8, 11408-3, 2132-9, 51732-3, 19777-2, 5130-0, 53949-3, 00190-3, 61494-9, 3357-1, 8092-9, 03534-7, 35987-3, 54058-7, 91295-4, 93982-7 #### [facility] ([id number]) [address] [facility], [address] [place] [address] IMMUNE PROFILE INTERP SEE SEPARATE REPORT Normal [facility] Comment on above: Performed By: #### C BCA, CMP, 1987-12, FEPR, 2276-4, 2284-8, 40660-8, 2132-9, 15130-0, 97076-2, 5130-0, 46544-5, 96343-2, 16081-0, 3357-1, 8092-9, 02371-5, 68498-4, 65379-8, 82217-5, 22708-0 #### [facility] ([id number]) [address] [facility], [address] [place] [address] IRON PROFILEon 09-23-2023 Iron [Mass/Vol] 25 ug/dL Low 50-170 [facility] Comment on above: Performed By: #### C SHARATH, CMP, 1986-12, FEPR, 2275-4, 2283-8, 76845-6, 2132-9, 67428-6, 97342-4, 5130-0, 67399-8, 68370-7, 72472-6, 3357-1, 8092-9, 12531-4, 39997-7, 18291-9, 93967-7, 34306-7 #### [facility] ([id number]) [facility], [address] [place] [address] IRON BINDING 179 ug/dL Low 250-425 [facility] Comment on above: Performed By: #### C BCA, CMP, 1986-12, FEPR, 2275-4, 2283-8, 28335-6, 2132-9, 84532-3, 34371-6, 5130-0, 77156-5, 92085-9, 13859-4, 3357-1, 8092-9, 76570-8, 09976-7, 47604-9, 46948-2, 41234-6 #### [facility] ([id number]) [address], [address] [place] [address] IRON SATURATION 14 % SATURATION Low 15-50 [facility] Comment on above: Performed By: #### C BCA, CMP, 1986-12, FEPR, 2276-4, 2284-8, 56973-1, 2132-9, 65553-9, 72787-4, 5130-0, 42602-9, 89218-7, 73527-4, 3357-1, 8092-9, 54708-9, 95937-8, 16442-4, 07156-4, 36179-8 #### [facility] ([id number]) [address], [address] [place] [address] Iron and TIBCon 09-23-2023 Interpretation and review of laboratory results Abnormal [facility] Iron [Mass/Vol] 25 ug/dL Low 50 - 170 ug/dL [facility] Iron binding capacity [Mass/Vol] 179 ug/dL Low 250 - 425 ug/dL [facility] Iron saturation [Mass fraction] 14 Low [facility] JAK2 gene p.[id number] [facility] (Bld/Tiss)on 09-23-2023 JAK2 V617F MUTATION, BLOOD SEE COMMENTS 09/26/2023 10:21 AM Normal [facility] Comment on above: Result Comment: NOTE Test Result Flag Unit RefValue ----- JAK2 V617F Mutation Detection, B JAK2 Result see interpretation JAK2 V617F Mutation Detection, B See Note Peripheral blood, JAK2 V617F mutation analysis: Negative for JAK2 V617F. A negative [id number] test result does not exclude the possibility [...] for a definitive diagnosis. Signing Pathologist: Emanuel S. Viswanatha, M.D. ADDITIONAL INFORMATION Method summary - JAK2 V617F analysis: Quantitative, allele-specific polymerase chain reaction (PCR) assay was performed using extracted genomic DNA to evaluate for the point mutation causing JAK2 V617F. The analytic sensitivity of this assay has been determined at 0.06% (see [facility] Interpretive Handbook for method details). This test was developed and its performance characteristics determined by [facility] in a manner consistent with CLIA requirements. This test has not been cleared or approved by the U.S. Food and Drug Administration. Test Performed by: [place] [address] Granulizing Machine Operator: Thierry Duran M.D. Ph.D.; CLIA# [id number] Performed By: #### C KELVIN EARLY, 1986-12, FEPR, 2276-4, 2284-8, 77030-0, 213-9, 00969-4, 69240-5, 5130-0, 91483-4, 49016-3, 06875-0, 3357-1, 8092-9, 16957-9, 59852-2, 60475-7, 30357-4, 78570-0 #### [facility] ([id number]) [address] [place] [address], [address] [place] [address] Tiki 1 AB IGGon 09-23-2023 Anileridine Ql (U) NINF [facility] LDHon 09-23-2023 LDH [Catalytic activity/Vol] 140 U/L 100 - 235 U/L [facility] LDH [Catalytic activity/Vol] on 09-23-2023 [facility] LDH 140 U/L Normal 100-235 [facility] Comment on above: Performed By: #### C SHARATH, CMP, 1986-12, FEPR, 2276-4, 2284-8, 35037-8, 2132-9, 31413-9, 48280-0, 5130-0, 16964-9, 22026-7, 90588-5, 3357-1, 8092-9, 47909-3, 77587-3, 44157-9, 98135-9, 86722-8 #### [facility] ([id number]) [address] [place] [address], [address] [place] [address] Methylmalonate [Moles/Vol]on 09-23-2023 MMA QN 0.23 umol/L Normal <=0.40 [facility] Comment on above: Result Comment: NOTE This test was developed and its performance characteristics determined by [facility]'s [facility] [place] ([facility] It has not been cleared or approved by the FDA. -[facility] is regulated under CLIA as qualified to perform high-complexity testing. This test is used for clinical purposes. It should not be regarded as investigational or for research. Test Performed By: [place] [address] Hairspring Truer: Meño Hernandez III, M.D. CLIA #[id number] Narrative diagnostic report Molgen Yaw (Bld/Tiss) [Interp]on 09-23-2023 BCR/ABL PCR w/Reflex SEE COMMENTS 09/25/2023 04:24 PM Normal [facility] Comment on above: Result Comment: NOTE Test Result Flag Unit RefValue ----- BCR/ABL1 Reflex, Qual/Quant Specimen Type EDTA WHOLE BLOOD BCR/ABL1 Reflex Result see interpretation Interpretation See Note Peripheral blood, BCR/ABL1 mRNA analysis, qualitative: Negative. No BCR/ABL1 mRNA transcripts were detected. Method summary: The presence or absence of BCR/ABL1 mRNA transcripts was evaluated using a qualitative, reverse cereal chemist PCR-based assay. The assay detects nearly all published and theoretical BCR/ABL1 fusion forms including the common e13/e14-a2 (p210) and e1-a2 (p190) transcripts, as well as other rarer variants (e.g. e19-a2 (p230), e13/e14-a3, e1-a3, etc.). The limit of detection for this assay is 0.1%. Please contact the lab at [phone] with questions or if additional testing is required. See [facility] True Office Test Catalog for additional method details. Signing Pathologist: Ammon Titus M.D. (Jane), Ph.D. ADDITIONAL INFORMATION This test was developed and its performance characteristics determined by [facility] in a manner consistent with CLIA requirements. This test has not been cleared or approved by the U.S. Food and Drug Administration. Test Performed by: [place] [address] Granulizing Machine Operator: Thierry Duran M.D. Ph.D.; CLIA# [id number] Neutrophil cytoplasmic Ab IF Ql (S)on 09-23-2023 ANCA See Below Normal [facility] Comment on above: Result Comment: NOTE [...] See below Reviewed by Arun Tucker, Ph.D D(ABMLI) This test is used as an aid in diagnosis of patients with autoimmune vasculitidies. The final interpretation should be done in conjunction with ANCA test results and clinical correlation. Test Performed By: [facility] [address] [place] [address] Hairspring Truer: Meño Hernandez III, M.D. CLIA #[id number] No Panel Informationon 09-23 [facility] Interpretation and review of laboratory results Abnormal [facility] Nuclear Ab IA Ql (S)on 09-23 Interpretation and review of laboratory results Abnormal [facility] SILVIA Screen w/reflex Positive Abnormal NEG [facility] Comment on above: Result Comment: Testing performed using multiplex flow immunoassay. Eleven different antigens associated with systemic autoimmune diseases (dsDNA,Sm,Sm/GOLF BALL INSPECTOR,GOLF BALL INSPECTOR,Chromatin, SSA,SSB,Tiki-1,Scl70,Ribo P,Centromere B) are included in this screening test. Performed By: #### C BCA, CMP, 1988-5, FEPR, 2276-4, 2284-8, 43769-5, 2132-9, 94899-3, 42391-6, 5130-0, 53496-4, 70928-8, 30199-8, 3357-1, 8092-9, 30700-0, 16234-4, 16837-5, 25451-4, 71780-5 #### [facility] ([id number]) [address] [place] [address], [address] [place] [address] comment (Bld) [Interp]on 09-23-2023 STAFF REVIEW NOTE Normal [facility] Comment on above: Result Comment: [facility] [address] [place] [address] Clinical Pathology Report Patient Name:JOSE DAVID:1945 (Age: 78)Gender:FTaken:4Reported:09/26/2023hysician(s):Olga Pan M.D. ([phone])Copy To: Rec. #:[id number]: #[id number] Final Pathologic Diagnosis Peripheral blood smear: Neutrophilic [...] Out hna/09/26/2023Og Martinez M.D. [facility], [address] [place] [address], License number: [id number]. Clinical History R29.9. BLOOD SMEAR EVALUATION CBC (09/23/2023 0818): WBC = 12.1 X10E9/L; HGB = 9.1 g/dL; HCT = 27.8%; MCV = 85 fL; PLT = 924 X10E9/L OTHER LAB DATA: Noncontributory. BLOOD SMEAR: Leukocytes: Neutrophilic leukocytosis with cytotoxic changes and lymphocytopenia. Erythrocytes: Moderate normocytic normochromic anemia. Platelets: Thrombocytosis. Specimen(s) Received Blood Smear Review Fee Codes(s): 1; 51090 Performed By: #### C BCA, CMP, 1988-5, FEPR, 2276-4, 2284-8, 23030-0, 2132-9, 59701-1, 91813-7, 5130-0, 25186-5, 45693-1, 09503-1, 3357-1, 8092-9, 53649-2, 77104-7, 80977-4, 66038-2, 62564-7 #### [facility] ([id number]) [address] [place] [address], [address] [place] [address] GOLF BALL INSPECTOR AB IgGon 09-23-2023 Ribonucleoprotein extractable nuclear IgG Qn (S) [facility] Comment on above: CLIA ID [id number] Rheumatoid factoron 09-23-19 Rheumatoid factor Nephelometry Qn (S) 21 High [facility] Rheumatoid factor Nephelomet ry Qn (S)on 09-23-2023 Interpretation and review of laboratory results Abnormal [facility] RHEUMATOID FACTOR 21 IU/mL High <20 [facility] Comment on above: Performed By: #### C SHARATH, KELVIN, 1987-12, FEPR, 2275-4, 4-8, 68144-8, 2132-9, 91022-4, 88324-9, 5130-0, 84400-6, 67158-0, 16534-3, 3357-1, 8092-9, 85327-4, 81469-5, 41944-9, 95201-8, 41722-5 #### [facility] ([id number]) [address] [place] [address], [address] [place] [address] Ribonucleoprotein extractabl e nuclear IgG Qn (S)on 09-23-2023 GOLF BALL INSPECTOR ANTIBODY IGG <0.2 Normal <1.0 [facility] Comment on above: Performed By: #### C SHARATH, KELVIN, 1987-12, FEPR, 2275-, 2283-8, 25295-6, 2-9, 46761-4, 52428-3, 5130-0, 42581-1, 39847-1, 39796-5, 3357-1, 8092-9, 57993-6, 88596-1, 69437-5, 74419-9, 88950-8 #### [facility] ([id number]) [address] [place] [address], [address] [place] [address] Ribosomal P IgG Qn (S)on RIBOSOME P ANTIBODY <0.2 Normal <1.0 [facility] Comment on above: Performed By: #### C SHARATH, KELVIN, 1987-12, FEPR, 2275-, 2283-8, 88860-6, 2132-9, 28536-9, 61147-7, 5130-0, 07346-9, 99239-0, 78660-5, 3357-1, 8092-9, 57889-4, 49132-1, 41159-9, 68487-4, 37985-1 #### [facility] ([id number]) [address], [address] [place] [address] SCL-70 extractable nuclear A b Ql (S)on 09-23-2023 SCL 70 ANTIBODY <0.2 Normal <1.0 [facility] Comment on above: Performed By: #### C BCA, CMP, 1987-12, FEPR, 2275-, 2283-8, 87007-0, 9, 43841-0, 37355-2, 5130-0, 33386-5, 40626-4, 46840-1, 3357-1, 8092-9, 58529-5, 14924-2, 06479-9, 11033-6, 10337-9 #### [facility] ([id number]) [address], [address] [place] [address] SERUM PROTEIN ELECTROPHORESI Son 09-23-2023 Albumin [Mass/Vol] 2.5 g/dL Low 3.4-5.3 [facility] Comment on above: Performed By: #### C BCA, CMP, 1987-12, FEPR, 2275-, 2283-8, 83174-7, 9, 96970-8, 80116-1, 5130-0, 18744-2, 06588-3, 65910-8, 3357-1, 8092-9, 18696-3, 21281-0, 47537-2, 08535-1, 75685-6 #### [facility] ([id number]) [address], [address] [place] [address] ALPHA 1 GLOBULIN 0.6 g/dL High 0.1-0.4 [facility] Comment on above: Performed By: #### C BCA, CMP, 1987-12, FEPR, 2275-4, 2283-8, 89110-9, 213-9, 23212-3, 42939-5, 5130-0, 28284-7, 86627-6, 76453-1, 3357-1, 8092-9, 54825-2, 55354-1, 34156-9, 65261-0, 11048-2 #### [facility] ([id number]) [address], [address] [place] [address] ALPHA 2 GLOBULIN 1.2 g/dL High 0.4-1.1 [facility] Comment on above: Performed By: #### C BCA, CMP, 1987-12, FEPR, 2275-4, 2284-8, 98786-1, 2132-9, 15486-3, 94201-3, 5130-0, 22718-7, 82679-7, 19960-2, 3357-1, 8092-9, 69066-8, 82069-9, 09408-8, 97291-1, 64119-0 #### [facility] ([id number]) [address], [address] [place] [address] BETA GLOBULIN 0.8 g/dL Normal 0.5-1.2 [facility] Comment on above: Performed By: #### C SHARATH, CMP, 1987-12, FEPR, 2275-4, 4-8, 01365-3, 2131-9, 41083-2, 84106-3, 5130-0, 19962-3, 65882-3, 66184-5, 3357-1, 8092-9, 11644-5, 34120-1, 91245-8, 65442-9, 28634-9 #### [facility] ([id number]) [address], [address] [place] [address] GAMMA GLOBULIN 1.0 g/dL Normal 0.5-1.6 [facility] Comment on above: Performed By: #### C BCA, CMP, 1987-12, FEPR, 2275-4, 2284-8, 46098-3, 2132-9, 94429-7, 03327-8, 5130-0, 63560-6, 85094-9, 42796-6, 3357-1, 8092-9, 76613-9, 04550-2, 93123-1, 40038-7, 35955-4 #### [facility] ([id number]) [address] [facility] [address] [address], [address] [place] [address] PROT. ELECTROPHORESIS INTERP SEE SEPARATE REPORT Normal [facility] Comment on above: Performed By: #### C BCA, CMP, 1987-12, FEPR, 2276-4, 2284-8, 99929-8, 2132-9, 78269-5, 43669-2, 5130-0, 36685-3, 09371-7, 83215-5, 3357-1, 8092-9, 92852-0, 49384-7, 53971-2, 15850-6, 36216-9 #### [facility] ([id number]) [address] [facility], [address] [place] [address] Protein [Mass/Vol] 6.1 g/dL Normal 6.0-8.0 [facility] Comment on above: Performed By: #### C BCA, CMP, 1987-12, FEPR, 2276-4, 2284-8, 18102-1, 2132-9, 87473-7, 71570-9, 5130-0, 59190-5, 01459-3, 17271-0, 3357-1, 8092-9, 15932-2, 38190-9, 62883-5, 12882-6, 61775-1 #### [facility] ([id number]) [address], [address] [place] [address] SSA antibodyon 09-23-2023 Sjogrens syndrome-A extractable nuclear Ab Qn (S) [facility] Comment on above: CLIA ID [id number] SSB Antibodyon 09-23-2023 Sjogrens syndrome-B extractable nuclear IgG Qn (S) [facility] Comment on above: CLIA ID [id number] Scleroderma antibodyon 09-23 SCL-70 extractable nuclear Ab Ql (S) [facility] Comment on above: CLIA ID [id number] Sjogrens syndrome-A extracta ble nuclear Ab Qn (S)on 09-23-2023 SSA ANTIBODY <0.2 Normal <1.0 [facility] Comment on above: Performed By: #### C SHARATH, KELVIN, 1987-12, FEPR, 2275-, 2283-8, 00539-6, 2131-9, 78111-2, 31876-4, 5130-0, 43850-2, 97648-6, 96301-4, 3357-1, 8092-9, 81536-9, 39837-8, 66670-1, 06537-0, 08430-9 #### [facility] ([id number]) [address], [address] [place] [address] Sjogrens syndrome-B extracta ble nuclear IgG Qn (S)on 09-23-2023 SSB ANTIBODY <0.2 Normal <1.0 [facility] Comment on above: Performed By: #### C KELVIN EARLY, 1987-12, FEPR, 2275-, 2283-8, 15533-5, 2131-9, 76924-9, 16106-4, 5130-0, 56174-5, 87761-0, 71871-7, 3357-1, 8092-9, 96651-7, 87364-0, 47327-7, 21783-6, 94116-4 #### [facility] ([id number]) [address], [address] [place] [address] Mejia extractable nuclear Ab +Ribonucleoprotein extractable nuclear IgG Qn (S)on 09-23-2023 MEJIA/GOLF BALL INSPECTOR AB IGG <0.2 Normal <1.0 [facility] Comment on above: Performed By: #### C SHARATH, KELVIN, 1987-12, FEPR, 2275-, 2283-8, 68110-5, 2132-9, 19722-9, 10209-1, 5130-0, 60119-5, 03026-5, 53797-9, 3357-1, 8092-9, 58729-4, 62035-7, 56675-1, 96276-1, 37994-9 #### [facility] ([id number]) [address] [facility], [address] [place] [address] Mejia extractable nuclear Ig G Qn (S)on 09-23-2023 ANTI-MEJIA AB IGG <0.2 Normal <1.0 [facility] Comment on above: Performed By: #### C BCA, CMP, 1987-5, FEPR, 2276-4, 2284-8, 11294-9, 2131-9, 84513-0, 84875-8, 5130-0, 49722-5, 66540-3, 99792-1, 3357-1, 8092-9, 42648-3, 69142-2, 32568-5, 60904-9, 08848-7 #### [facility] ([id number]) [address] [place] [address], [address] [place] [address] Mejia/GOLF BALL INSPECTOR AB IgGon 4 Mejia extractable nuclear Ab+Ribonucleoprotein extractable nuclear IgG Qn (S) [facility] Surgical Pathologyon 024 Surgical Pathology Normal [facility] Comment on above: Result Comment: [facility] True Office [facility] [address] [place], [place] [address] Flow Cytometry Patient Name:JOSE DAVIDMoisesAccession #:[id number]. Rec. #:[id number]:[facility] SpringfieldTaken:4DOB:1945 (Age: 78)Location:[facility] GEN 8 ACUTE N489Mpknksee:09/23/2023Gender: FBill. Type:ToledoReported:Priority:RBilling #:[id number] Class:TTH Special Procedure OnlyPhysician(s): Charlene Chan MD [...] patterns of antigen expression are not seen. [place] on the lymphoid population demonstrates a mixed population of phenotypically unremarkable T-cells, natural killer cells, and polyclonal B-cells, without a detectable monoclonal population. Immunophenotyping antibodies tested: CD2, CD3, CD4, CD5, CD7, CD8, CD10, CD13, CD16, CD19, CD20, CD23, CD33, CD34, CD38, CD43, CD45, CD56, CD117, CD123, CD138, [place], and Lambda. Immunophenotyping Comment: Immunophenotyping has been used in this diagnostic evaluation. This test was developed and its performance characteristics determined by the [facility] Clinical Laboratories Department. It has not been [...] perform high-complexity clinical testing. Electronically Signed Out ht09/23/2023 Wm Camacho MD VITAMIN B12on 09-23-2023 Cobalamin (Vitamin B12) [Mass/Vol] 248 pg/mL Normal 180-914 [facility] Comment on above: Performed By: #### C BCA, CMP, 1988-5, FEPR, 2276-4, 2284-8, 20978-9, 2132-9, 11147-0, 61411-9, 5130-0, 24917-8, 65675-5, 04963-5, 3357-1, 8092-9, 53767-8, 13394-1, 53206-7, 93422-5, 68932-0 #### [facility] ([id number]) [address] [facility], [address] [place] [address] Vitamin B12on 09-23-2023 Cobalamin (Vitamin B12) [Mass/Vol] 248 pg/mL 180 - 914 pg/mL [facility] dRVVT/dRVVT.excess phospholi pid Coag (PPP) [Ratio]on 09-23-2023 DILUTE KORI'S VIPER VENOM Negative Normal [facility] Comment on above: Performed By: #### C BCA, CMP, 1988-5, FEPR, 2276-4, 2284-8, 74822-2, 2132-9, 83328-6, 85250-1, 5130-0, 37417-5, 27599-0, 59115-4, 3357-1, 8092-9, 74661-1, 87075-6, 46001-2, 66643-2, 19978-2 #### [facility] ([id number]) [address] [facility], [address] [place] [address] CT CSPINE WO CONon 3 CT CSPINE [...] by: SHANTELL GARCIA Date: 2022-12-25 08:22 Normal [facility] XR KNEE RT 4V or >on [...] lateral and patellofemoral compartments where there is xdml-od-ujzh contact. 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 Electronically authenticated by: KARAN JENKINS Date: 2022-04-25 19:06 Normal [facility] Patient Educationon 09-10-19 22 Patient Education Nutrition [...] height. This can be done either in [place] ([place] or metric measurements. Note that charts are available to help you find your BMI quickly and easily without having to do these calculations yourself. To calculate your BMI in [place] ([place] measurements, your health care provider will: [...] problems. ? BMI can be measured using [place]an measurements or metric measurements. ? To interpret [...] 04/22/2005 Document Revised: 07/24/2018 Document Reviewed: 06/24/2018 [employer] Patient Education ? 2020 [employer] Obstetrics and Gynecology Overactive Bladder, Adult Overactive [...] A spina (more content not included)... Normal [facility] 09-10-2021 [facility] [id number] .00CD:127 Normal [facility] [id number] .[id number]:127 Normal [facility] Urology Office/Clinic Noteon 09-10-2021 Urology Office/Clinic [...] and history for this patient from Dr. Napoles I have reviewed and verified the staff [...] genitourinary system) Interesting patient still working at [employer] which came here the store when I [...] URL Within 1 year, only if needed [address] [place] [address]- Additional Instructions: Patient Education BMI for Adults Overactive Bladder, Adult I, Aurora Hdz, personally scribed for Dr. Napoles on 09/10/2021 08:46:05. . Documentation recorded by the scribeAurora accurately reflects the services(s) I performed and decisions made by me. Authenticated by Dr. Napoles on 09/10/2021 08:48:57. Problem List/Past Medical History [...] Protein Urine Dipstick: Negative (09/10/21 08:26:00) Specific [place] Urine Dipstick: 1.025 (09/10/21 08:26:00) Urine Appearance Urine Dipstick: Clear (09/10/21 08:26:00) Urine Color Urine Dipstick: Yellow (09/10/21 08:26:00) Urobilinogen Urine Dipstick: Normal 0.2-1 EU/dl (09/10/21 08:26:00) pH Urine Dipstick: 5 (09/10/21 08:26:00) Normal [facility] Comment on above: Result Comment: Elec tronically Signed By: Gilbert NAPOLES MD\.br\Date and Time Signed: 09/10/21 08:49 EST\.br\Electronically Co-Signed By: Aurora Hdz MA\.br\Date and Time Co-Signed: 09/10/21 08:46 EST Physician Orderon 09-07-2021 Physician Order [id number] .00CD:127 Normal [facility] Vital Signs Date Time Vital Sign Value Performing Clinician Faci lity 11-06-2023 15:01-0400 Body height 157.5 cm Allie Hoskins MD Work Phone: [facility] [employer] [facility] 11-06-2023 15:01-0400 Body mass index (BMI) [Ratio] 22.09 kg/m2 Allie Hoskins MD Work Phone: [facility] [employer] [facility] 11-06-2023 15:01-0400 Body temperature 98.6 [degF] Allie Hoskins MD [facility] Phone: [facility] 11-06-2023 15:01-0400 Body weight 54.8 kg Allie Hoskins MD Work Phone: [facility] [employer] [facility] 11-06-2023 15:01-0400 Diastolic blood pressure 65 mm[Hg] Allie Hoskins MD Work Phone: [facility] [employer] 11-06-2023 15:01-0400 Heart rate 109 /min Allie Hoskins MD Work [facility]: [facility] 11-06-2023 15:01-0400 Respiratory rate 24 /min Allie Hoskins MD Work Phone: [facility] 11-06-2023 15:01-0400 SaO2% (BldA) [Mass fraction] 97 % Allie Hoskins MD Work [facility] 11-06-2023 15:01-0400 Systolic blood pressure 151 mm[Hg] Allie Hoskins MD Work Phone: [facility] 10-16-2023 11:04-0500 Body height 152.4 cm [facility] 10-16-2023 11:04-0500 Body mass index (BMI) [Ratio] 23.6 kg/m2 [facility] 10-16-2023 11:04-0500 Body weight 54.88 kg [facility] 10-16-2023 11:04-0500 Diastolic blood pressure 72 mm[Hg] [facility] 10-16-2023 11:04-0500 Heart rate 88 /min [facility] 10-16-2023 11:04-0500 SaO2% (BldA) [Mass fraction] 98 % [facility] 10-16-2023 11:04-0500 Systolic blood pressure 134 mm[Hg] [facility] 10-16-2023 09:50-0500 Diastolic blood pressure 74 mm[Hg] Mouna Bautista MD Work Phone: [facility] 10-16-2023 09:50-0500 Heart rate 72 /min Mouna Bautista MD Work Phone: [facility] 10-16-2023 09:50-0500 Systolic blood pressure 140 mm[Hg] Mouna Bautista MD Work Phone: [facility] 10-16-2023 09:49-0500 Body height 157.5 cm Mouna Bautista MD Work Phone: [facility] 10-16-2023 09:49-0500 Body mass index (BMI) [Ratio] 21.51 kg/m2 Mouna Bautista MD Work Phone: [facility] 10-16-2023 09:49-0500 Body weight 53.34 kg Mouna Bautista MD Work Phone: [facility] 10-16-2023 09:49-0500 Respiratory rate 18 /min Mouna Bautista MD Work Phone: [facility] 09-26-2023 15:31-0500 Body temperature 98.2 [degF] Bart Milian MD [facility] Phone[facility] 09-26-2023 15:31-0500 Heart rate 103 /min Bart Milian MD Work Phone[facility] 09-26-2023 15:31-0500 Respiratory rate 16 /min Bart Milian MD Work Phone: [facility] [employer] 09-26-2023 15:31-0500 SaO2% (BldA) [Mass fraction] 96 % Bart Milian MD Work Phone: [facility] [employer] 09-26-2023 07:20-0500 Diastolic blood pressure 84 mm[Hg] Bart Milian MD Work Phone[facility] 09-26-2023 07:20-0500 Systolic blood pressure 152 mm[Hg] Bart Milian MD Work Phone: [facility] [employer] 09-24-2023 13:40-0500 Body height 157.5 cm Bart Milian MD Work Phone: [facility] [employer] 09-24-2023 13:40-0500 Body mass index (BMI) [Ratio] 21.21 kg/m2 Bart Milian MD Work [facility]: [facility] 09-24-2023 13:40-0500 Body weight 52.6 kg Bart Milian MD Work Phone: [facility] [employer] Encounters Encounter Date Encounter Type Care Provider Facility Start: 11-26-2023 End: 11-26-2023 ambulatory [facility] Start: 11-06-2023 End: 11-06-2023 Office outpatient visit 40 minutes Allie Hoskins MD Work Phone: Adelaida [facility]ane [facility] - [facility] Oncology Comment on above: Normocytic anemia (P rimary Dx); Thrombocytosis Start: 11-06-2023 Orders Only Malinda Keane [facility] Comment on above: Giant cell arteritis (CMS-HCC) (Primary Dx); Stroke-like symptoms; Vision blurred; Anemia, unspecified type Start: 10-21-2023 End: 10-21-2023 ambulatory JT JASSO [facility] Start: 10-17-2023 Telephone encounter Beronica [facility] Comment on above: Med Refill Start: 10-16-2023 End: 10-16-2023 ambulatory MOUNA BAUTISTA [facility] Work Phone: Start: 10-16-2023 End: 10-16-2023 Patient encounter procedure [facility] Work Phone: Start: 10-16-2023 End: 10-16-2023 Office outpatient visit 15 minutes Mouna Bautista MD Work Phone: [facility] Comment on above: Giant cell arteritis ([facility]-HCC) (Primary Dx) Start: 09-29-2023 Telephone encounter Rosa Suh [facility]rology Comment on above: Hospital Follow-up Start: 09-27-2023 End: 09-27-2023 Evaluation and management of inpatient RICKIE STEWART [facility] Start: 09-24-2023 End: 09-27-2023 Evaluation and management of inpatient [facility]RE[facility] Start: 09-24-2023 ambulatory JOHN [facility] Start: 09-24-2023 End: 09-27-2023 Evaluation and management of inpatient CARLITOS CARABALLO [facility] Start: 09-23-2023 End: 09-26-2023 [facility] Start: 09-23-2023 End: 09-26-2023 Evaluation and management of inpatient Tono Pan MD Work Phone: [facility] - GEN 8 Acute Comment on above: B12 deficiency (Prim lisa Dx); Thrombocytosis; Vision blurred; Temporal arteritis ([facility]-HCC) Start: 03-24-2023 End: 03-25-2023 ambulatory Naomy Lujan MD Facility:[facility] Start: 03-10-2023 End: 03-11-2023 ambulatory Naomy Lujan MD Facility:[facility] Start: 03-03-2023 End: 03-04-2023 ambulatory Naomy Lujan MD Facility:[facility] Start: 02-17-2023 End: 02-18-2023 ambulatory Naomy Lujan MD Facility:[facility] Start: 02-03-2023 End: 02-04-2023 ambulatory Naomy Lujan MD Facility:[facility] Start: 01-24-2023 End: 01-25-2023 ambulatory Naomy Lujan MD Facility:[facility] Start: 12-25-2022 End: 12-25-[address] PATO LYNN Facility: Start: 04-25-2022 End: 04-25-[address] CRISTOPHER BUCHANAN . 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 Work Phone: Start: 09-23-2023 ANCA Trevin Sandhu [...] Work Phone: Start: 09-23-2023 Jak2 gene analysis [id number] variant Bart Milian MD Work Phone: Start: 09-23-2023 Antinuclear antibodies silvia Nandini Walters MD Work Phone: Start: 09-23-2023 Comprehensive metabo lic panel Nandini Walters MD Work Phone: Start: 09-23-2023 Adult depression scr eening assessment Rosa Ovalles Start: 09-23-2023 PULSE OXIMETRY, SPOT Ra leeroy Walters MD Work Phone: Plan of Treatment Date Care Activity Detail Author Start: 11-05-2024 Adult BMI Screening Adult BMI Screening [facility] Start: 10-16-2024 Adult BMI Screening Adult BMI Screening [facility] Start: 10-16-2024 Tobacco Screening Tobacco Screening [facility] Start: 09-24-2024 Adult BMI Screening Adult BMI Screening [facility] Start: 09-24-2024 Tobacco Screening Tobacco Screening [facility] Start: 09-23-2024 Depression Screening Depression Screening [facility] Start: 03-05-2024 End: 03-05-2024 Patient encounter procedure 03/05/2024 2:15 PM EDT Office Visit Adelaida Keane [facility] - Medical Oncology [address] [place] [address] Allie Hoskins MD [address] [facility] [address] [place], [place] [id number] Adelaidabahman Keane [facility] - [facility] Start: 01-15-2024 End: 01-15-2024 Patient encounter procedure 01/15/2024 11:00 AM EDT Office Visit [facility] [address] [place] [address] Mouna Bautista MD [address] [place] [place] [address] [address] [facility] Start: 01-02-2024 End: 01-02-2024 Patient encounter procedure 01/02/2024 1:15 PM EDT Office Visit [facility] [address] [place] [phone] Darci Santana MD [address] [place] [phone] [facility] Start: 12-05-2023 End: 12-05-2023 Patient encounter procedure 12/05/2023 10:15 AM EDT Office Visit [facility] [address] [place] [phone] Darci Santana MD [address] [place] [id number] [facility] Start: 11-06-2023 End: 11-06-2023 Patient encounter procedure 11/06/2023 3:30 PM EDT Office Visit Adelaida L Lakhwinder [facility] - [facility] Oncology [address] [place] [phone] Allie Hoskins MD [address] [place] [id number] [facility] Start: 10-16-2023 End: 10-16-2023 Patient encounter procedure 10/16/2023 9:10 AM EST Office Visit [facility] [address] [place] [address] Mouna Bautista MD [address], [address] [address] [facility] Start: 04-25-2023 Influenza vaccination Influenza Vaccine [facility] [employer] Start: 2011 [facility] Start: 1996 Administration of varicella zoster vaccine Zoster (Shingles) Vaccine (1 of 2) [facility] Start: 1965 DTaP,Tdap and Td Vaccines (1 - Tdap) DTaP,Tdap and Td Vaccines (1 - Tdap) [facility] Start: 1945 Medicare Annual Wellness Visit Medicare Annual Wellness [facility] End: 09-26-2024 Basic metabolic 2000 panel - Serum or Plasma Basic Metabolic Panel Lab Routine Vision blurred 1 Occurrences starting 09/26/2023 until 09/26/2024 [facility] Comment on above: 1 Occurrences starting 09/26/2023 until 09/26/2024 End: 09-26-2024 CBC W Auto Differential panel - Blood CBC auto differential Lab Routine Thrombocytosis 1 Occurrences starting 09/26/2023 until 09/26/2024 [facility] Comment on above: 1 Occurrences starting 09/26/2023 until 09/26/2024 End: 11-05-2024 CBC W Auto Differential panel - Blood CBC auto differential Lab Routine Giant cell arteritis (CMS-HCC) Stroke-like symptoms Vision blurred Anemia, unspecified type every 2 months for 2 Occurrences starting 11/06/2023 until 11/05/2024 [employer] Work Phone: Comment on above: every 2 months for 2 Occurrences startin g 11/06/2023 until 11/05/2024 End: 11-05-2024 Ferritin [Mass/volume] in Serum or Plasma Ferritin Lab Routine Giant cell arteritis (CMS-HCC) Stroke-like symptoms Vision blurred Anemia, unspecified type every 2 months for 2 Occurrences starting 11/06/2023 until 11/05/2024 [employer] Comment on above: every 2 months for 2 Occurrences startin g 11/06/2023 until 11/05/2024 End: 09-23-2023 Flow cytometry blood only [employer] Work Phone: Comment on above: Once for 1 Occurrences starting 09/23/19 until 09/23/2023 Immunoelectrophoresi s for Therapy Monitoring Immunoelectrophoresis for Therapy Monitoring Lab Routine 09/23/2023 12:56 PM EST [employer] Phone: End: 11-05-2024 Iron and TIBC Iron and TIBC Lab Routine Giant cell arteritis (CMS-HCC) Stroke-like symptoms Vision blurred Anemia, unspecified type every 2 months for 2 Occurrences starting 11/06/2023 until 11/05/2024 [employer] Comment on above: every 2 months for 2 Occurrences startin g 11/06/2023 until 11/05/2024 Methylmalonate [Moles/volume] in Serum or Plasma Methylmalonic acid screen Lab Routine 09/23/2023 12:57 PM EST [employer] End: 09-23-2023 Methylmalonic acid screen Methylmalonic acid screen Lab Routine Once for 1 Occurrences starting 09/23/2023 until 09/23/2023 [employer] Phone: Comment on above: Once for 1 Occurrences starting 09/23/19 until 09/23/2023 Protein electrophore sis, serum Protein electrophoresis, serum Lab Routine 09/23/2023 12:56 PM [employer] Payers Date Payer Category Payer Medicare [id number] 2022 Medicare 2016 Private Health Insurance [id number] 1959 Medicare [id number] 1945 Unknown [id number] 2.16.84 0.1.185779.3.579.2.593 1946 Unknown [id number] 2.16.84 0.1.067807.3.579.2.593 1946 Unknown [id number] 2.16. 840.1.204677.3.579.2.196 1946 Unknown [id number] 2.16. 840.1.967653.3.579.2.196 1946 Unknown [id number] 2.16. 840.1.029733.3.579.2.196 1946 Unknown [id number] 2.16. 840.1.582537.3.579.2.196 1946 Unknown [id number] 2.16. 840.1.798547.3.579.2.196 1946 Unknown [id number] 2.16. 840.1.742349.3.579.2.196 1946 Unknown [id number] 2.16.8 40.1.646411.3.579.2.1286 1946 Unknown [id number] 2.16.8 40.1.374587.3.579.2.1286 1946 Unknown [id number] 2.16.8 40.1.603972.3.579.2.1286 1946 Unknown [id number] 2.16.8 40.1.893904.3.579.2.128 1946 Unknown [id number] 2.16.8 40.1.113331.3.579.2.128 1946 Unknown [id number] 2.16.8 40.1.582238.3.579.2.128 1946 Unknown [id number] 2.16.8 40.1.312914.3.579.2.128 1946 Unknown [id number] 2.16.8 40.1.208719.3.579.2.1286 1946 Unknown [id number] 2.16.8 40.1.843934.3.579.2.1286 1946 Unknown [id number] 2.16.8 40.1.589097.3.579.2.1286 1946 Unknown [id number] 2.16.8 40.1.168866.3.579.2.1286 1946 Unknown [id number] 2.16.8 40.1.554571.3.579.2.1286 1946 Unknown [id number] 2.16.8 40.1.114035.3.579.2.1286 Self-pay Self Pay [id number] Social History Date Type Detail Facility Start: 09-23-2023 Tobacco smoking stat [facility] Never smoked tobacco [facility] Start: 09-23-2023 Tobacco use and exposure Smoke less tobacco non-user [facility] Start: 09-25-2023 End: 10-16-2023 Alcohol intake Lifetime non-drinker (finding) [facility] Start: 10-05-2020 End: 09-23-2023 History of Social function [facility] Start: 10-05-2020 End: 09-23-2023 Alcohol Use Disorder Identification Test - Consumption [AUDIT-C] [facility] How often to you hav e a drink containing alcohol? Never [facility] How many standard dr inks containing alcohol do you have on a typical day? Patient does not drink [facility] Start: 1945 Sex Assigned At Not on file P [facility] Start: 10-16-2023 [facility] Start: 1945 Sex Assigned At Female F [facility] Goals Date Patient Goal Desired Activity /State Personal health goal Comment on above: Formatting of this n ote might be different from the original. Evaluation of progress towards goal: Home with dtr, self care Clinical Notes 09-23-2023 to 11-26-2023 Malinda Arrington RN - 11/06/2023 3:46 PM Milagros Hoskins MD - 11/06/2023 3:30 PM EDTPatient InstructionsTelephone Encounter - Beronica Vazquez - 10/17/2023 11:39 AM ESTDischarge InstructionsAttachments Note Date & Type Note Facility 11-26-2023 Note Subjective Patient ID: Jose David is a 78 y.o. female who presents for Follow-up (GCA). HPI She was admitted to [facility] end of August 2023 due to bilateral vision loss. She underwent bilateral TA biopsy, which confirmed GCA. She is using prednisone 40 mg daily and bactrim. Will initiate treatment with Actemra 6 weeks ago. She is doing very well but no recovery of her vision. Which is not expected. She does not have much vision left, have difficulty ambulating with no assistance. Review of Systems Constitutional: Positive for activity change and fatigue. Negative for appetite change, chills and fever. HENT: Negative for congestion and ear pain. Eyes: Negative for pain and discharge. Respiratory: Negative for cough, shortness of breath and wheezing. Cardiovascular: Negative for chest pain, palpitations and leg swelling. Gastrointestinal: Negative for abdominal distention and abdominal pain. Endocrine: Negative for cold intolerance and polyuria. Genitourinary: Negative for difficulty urinating, dysuria, frequency and hematuria. Musculoskeletal: Positive for back pain. Negative for arthralgias, gait problem and joint swelling. Skin: Negative for rash and wound. Neurological: Positive for dizziness. Negative for numbness and headaches. Hematological: Negative for adenopathy. Psychiatric/Behavioral: Negative for agitation, behavioral problems and confusion. Objective Visit Vitals BP 132/74 (BP Location: Right arm, Patient Position: Sitting, BP Cuff Size: Adult) Pulse 105 Physical Exam Vitals and nursing note reviewed. Constitutional: General: She is not in acute distress. Appearance: She is normal weight. She is ill-appearing. She is not toxic-appearing or diaphoretic. HENT: Head: Normocephalic and atraumatic. Right Ear: External ear normal. Left Ear: External ear normal. Nose: Nose normal. Mouth/Throat: Mouth: Mucous membranes are moist. Pharynx: Oropharynx is clear. Eyes: General: No scleral icterus. Right eye: Discharge present. Left eye: Discharge present. Extraocular Movements: Extraocular movements intact. Conjunctiva/sclera: Conjunctivae normal. Pupils: Pupils are equal, round, and reactive to light. Cardiovascular: Rate and Rhythm: Normal rate and regular rhythm. Heart sounds: No murmur heard. No friction rub. No gallop. Pulmonary: Effort: No respiratory distress. Breath sounds: No stridor. No wheezing, rhonchi or rales. Chest: Chest wall: No tenderness. Abdominal: General: Abdomen is flat. There is no distension. Palpations: Abdomen is soft. There is no mass. Tenderness: There is no abdominal tenderness. Musculoskeletal: General: No swelling, tenderness or deformity. Normal range of motion. Cervical back: Normal range of motion and neck supple. No tenderness. Right lower leg: No edema. Left lower leg: No edema. Skin: General: Skin is warm. Coloration: Skin is not jaundiced. Findings: No bruising, erythema, lesion or rash. Neurological: General: No focal deficit present. Mental Status: She is alert and oriented to person, place, and time. Cranial Nerves: No cranial nerve deficit. Motor: No weakness. Psychiatric: Mood and Affect: Mood normal. Behavior: Behavior normal. Assessment/Plan Giant cell arteritis, biopsy proven both sides 08/2023. Continues to taper prednisone from the current dose of 40 mg daily down to 10 mg daily over 2 months. Continue Actemra subcutaneous injections every 2 weeks. Likely her vision loss is not reversible. bilateral vision loss. She underwent bilateral TA biopsy, which confirmed GCA. She is using prednisone 60 mg daily and bactrim. ESR is a good marker for her to evaluate disease activity. 2. Steroid use. We will need DEXA Scan and anti resporptive therapy. 3. Actemra use. We discussed the risk of infection and need for lab testing every 3 months to monitor for toxicity. [facility] 11-06-2023 History of Present illness Narrative Patient is here for consult with Dr. Hoskins. Orders received for CBC, iron studies every 2 months (print out orders). F/u in 4 months. Calendar given to family member and labs orders to be drawn at [facility]. documented in this encounter [facility] 11-06-2023 History of Present illness Narrative Images from the original note were not included. [facility] 11/06/23 Jose David is a 78 y.o. year old female seen today in the oncology clinic. Chief Complaint Patient presents with Follow-up History of Present Illness: Mrs. David is a 78 y.o. 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 Over the weekend patients vision in left eye continued to worsen and eventually lost all vision in left eye. Patient was seen by dermatology teacher 09/22/2023 and time she would decreased vision also in her right eye. It was recommended that she go straight to the emergency department, for concern for giant cell arteritis. Initially she went to [facility] where they gave her Solu-Medrol 250 mg IV 1 dose and then transferred her to [facility]. When she arrived at [facility] she had complete vision loss in both eyes. Neurology has seen patient she was noted to have elevated platelet count 924,000, elevation of ESR 130, and CRP 13.3. Patient was also found to be anemic, iron 25, TIBC 179, iron saturation 14%, ferritin 478. the patient is currently on 50 mg of prednisone, plan to start Actemra In the near future. No past medical history on file. Past Surgical History: Procedure Laterality Date APPENDECTOMY BIOPSY ARTERY TEMPORAL Bilateral 09/25/2023 Performed by Kristel Reid MD at [facility] TONSILLECTOMY TUBAL LIGATION No family history on file. Social History Socioeconomic History Marital status: Spouse [...] Resource Strain: Not on file Food Insecurity: No Food Insecurity (10/16/2023) Hunger Screening Food Insecurity - Worry: Never True Food Insecurity - Inability: Never True Transportation Needs: Not on file Physical Activity: Not on file Stress: Not on file Social Connections: Not on file Interpersonal Safety: Not on file Housing Instability: Not on file Allergies Allergen Reactions Penicillin Confusion and Fever Medication List Accurate as of November 06, 2023 5:04 PM. If you have any questions, ask your nurse or doctor. New Medications Ordered This Visit ferrous sulfate 325 (65 FE) mg EC tablet Quantity: 180 tablet Refills: 1 Dose: 325 mg Signed by: Dr. Allie Hoskins MD 325 mg, oral, 2 times daily with meals Started by: Allie Hoskins MD Medications Continued This Visit acetaminophen 500 mg tablet Refills: 0 Dose: 500 mg Commonly known as: TYLENOL EXTRA STRENGTH Review of Symptoms: Review of Systems ECO- Symptomatic; in bed <50% of the day Physical Exam: General: Well appearing, in no acute distress. Vitals: BP 151/65 Pulse 109 Temp 37 C (98.6 F) (Oral) Resp 24 Ht 157.5 cm (5' 2.01 ) Wt 54.8 kg (120 lb 12.8 oz) SpO2 97% BMI 22.09 kg/m Body mass index is 22.09 kg/m . Eyes: No icterus, no conjuctival erythema, lost vision in both eyes. ENT: Pharyngeal mucosa was moist without exudate and inflammation or ulcerations. Tongue was midline and appeared normal.Gums were unremarkable. Lymph nodes: No palpable adenopathy Neck: Supple. There were no masses, tenderness. Trachea was midline. Respiratory: Respirations were non-labored. Lungs were clear to auscultation. There was no dullness to percussion. Cardiac: Regular rate and rhythm, S1 and [...] no unilateral weakness. Mood and affect: Normal. Recent Imaging: No results found. Recent Labs: No results found for this or any previous visit (from the past 336 hour(s)). Diagnosis Problem list: Problem List Items Addressed This Visit Hematopoietic and Hemostatic Normocytic anemia - Primary Relevant Medications ferrous sulfate 325 (65 FE) mg EC tablet Thrombocytosis Relevant Medications ferrous sulfate 325 (65 FE) mg EC tablet Impression: Giant cell arteritis with vision loss Normocytic anemia Iron deficiency thrombocytosis Plan: I have reviewed the patient's inpatient labs and hospital course. She has biopsy-proven giant cell arteritis, currently high-dose prednisone. Her thrombocytosis is getting better upon discharge around 600 K. Elevated platelet count is likely reactive due to inflammation and iron deficiency. BCR/ABL, Jak2 are both negative. Flow cytometry is negative for blasts. Lupus anticoagulant panel is negative. Start oral iron supplement twice a day, repeat CBC and iron study at [facility] in 2 months. Follow-up in 4 months. If patient can not tolerate oral iron supplement, consider IV iron treatment. Thank you. Allie Hoskins MD Please note that portions of this note were generated using voice recognition [employer] dictation software. Although every effort was made to ensure the accuracy of this automated cereal chemist, some errors in cereal chemist may have occurred. CC: Patient Care Team: MERCEDES Portillo as PCP - General (Nurse Practitioner) Allie Hoskins MD as Consulting Physician (Hematology) PCP:Giovanna Graf Referring MD: John Patel DO [facility] 11-06-2023 Instructions Allie Hoskins MD - 11/06/2023 3:30 PM EDT CBC, iron studies every 2 months (print out orders). F/u in 4 months. [facility] 10-21-2023 Note The daughter called back, she did submit the Extra Help application online yesterday, I don't know how long that it will take to take effect. Future filled Rx for next week to see. Pt is due for next dose in 2 weeks. I am writing appeal now to submit to PAP. Brynn Patricia, Basil, BCACP 12/24/23 10:47 AM [facility] [phone] [facility] 10-21-2023 Note Called patient and L VM to call back. What we received is a screenshot of transactions for bank account. No account saucedo name on it at all. This will not work. Called daughter Malinda's phone number: [phone]; but son Ryan answered. He will have daughter/mother call us back. Advised we need financial documents for patient assistance program application. Naresh Barrett, MeganD, [facility] Outpatient Clinical Pharmacist [facility] [id number] 12/23/23 12:40 PM [facility] 10-21-2023 Note Pt's POA called back . Advised on PA process, POA requests future contact go to her directly ([phone]). F/U upon determination of PA. Mert Damon, [facility] 11/04/23 at 12:51 PM [facility] 10-21-2023 Note Pt daughter called t o check PAP status, she states she emailed the bank statements in, not sure if she sent it to us or the program? Advised her that we are sending all of the documents in at once if we can, and will let her know when we have updates from PAP. She states the next dose will be due in 2 weeks, she will call again to check status next Friday. Mert Damon [facility] 12/22/23 at 12:14 PM [facility] 10-21-2023 Note Called and spoke wit h daughter. She plans to complete labs on 10/29/23. Will check for TB results again in a couple of days. Deb Blount, Clinical Data Management Manager [facility] [id number] 10/28/23 10:03 AM [facility] 10-21-2023 Note I spoke to the quyene kwan's daughter today and she told me she doesn't have the patient's SS statement. She sent us the patient's Extra Help Denial letter, but the only other thing she has is a bank statement with the SS deposits to her mother's account. I told her we can try with this until they have a chance to go to the Social Security Office to get a new statement letter. She is going to fax us the bank statement tomorrow and once we have that, we can sent it and the denial into the [facility] PAP. I will leave the Extra Help denial letter in the folder for now and we can send everything in at once. Irena Whaley, Basil, BCACP, CSP 12/16/23 3:59 PM [facility] [phone] [facility] 10-21-2023 Note Spoke to PAP, they r eceived the appeal but need to review it. They will let us know. LM for pt's daughter to let her know. Brynn Patricia PharmD, [facility]CP 12/26/23 1:17 PM [facility] [phone] [facility] 10-21-2023 Note Daughter called this morning asking for status update. We received a fax 12/02 stating they had received the application and it would take 3 business days for processing. Will follow-up tomorrow with program to check the status. Brynn Patricia PharmD, SHARATHCP 12/08/23 9:44 AM [facility] [phone] [facility] 10-21-2023 Note The patient's daught er informed us that her mother had her blood work done at [facility] yesterday, therefore we should expect to receive the results in a couple of days. [facility] lab's number is [phone] if we do not received the results in care everywhere. Mony Lin, [facility] 10/31/23 9:32 AM [facility] 10-21-2023 Note We have not received any bank statements for the patient. [facility] called [facility] and they haven't received them either. However, I did verify with them that they will accept the bank statements. I tried reaching the patient's daughter to follow up - no answer, LVMTCB. Alexa Bass, [facility] 12/19/23 3:09 PM [facility] 10-21-2023 Note [facility] and they said they will accept and appeal. Send in as APPEAL to [employer]. Explain the situation and provide income documentation. Daughter is going to look for SS statement, will fax today or Friday if they don't find it. Brynn Patricia, MeganD, BCACP 12/12/23 11:52 AM [facility] [phone] [facility] 10-21-2023 Note Specialty Pharmacy N ote: Actemra Supervising Physician & Clinic:?? Dr. Jt Jasso, [facility] Rheumatology Jose David is a 78 y.o. year old female patient with PMH of: Patient Active Problem List Diagnosis Giant cell arteritis (CMS/HCC) Vision blurred Stroke-like symptoms Allergies Allergen Reactions Penicillin Fever Other reaction(s): Confusion PharmD consulted for evaluation of Actemra for treatment of giant cell arteritis (Diagnosis Code: M31.6). ?? Prescribed Dosing: Actemra 162 mg/0.9 mL syringe; inject 1 syringe (162 mg) under the skin every 14 days Patient's weight: 54.9kg; dosing appropriate Previous medications tried: Prednisone 20mg (09/2023-current) No pertinent drug interactions were noted. No renal or hepatic dose adjustments necessary. Vitals: Ht Readings from Last 1 Encounters: 10/21/23 1.575 m (5' 2 ) Wt Readings from Last 1 Encounters: 10/21/23 54.9 kg (121 lb) BMI Readings from Last 1 Encounters: 10/21/23 22.13 kg/m??? BP Readings from Last 1 Encounters: 10/21/23 124/66 Pulse Readings from Last 1 Encounters: 10/21/23 100 Pertinent labs: Many labs in Care Everywhere, awaiting most recent lab results (expected to be drawn 10/22/2023) CBC 09/29/2023: CMP: 09/23/2023 TB: Ordered Viral Hepatitis: Evaluation: Based on ordered labs within normal limits, patient may be an appropriate candidate for this medication.? Awaiting TB and lipid results, and updated labs for all ordered. Also awaiting Dr. Jasso's note to close to include any pertinent information to be included. Follow-up: Mony spoke with Malinda (patient's daughter) who stated we can speak with her regarding the medication. They are aware PA needed and that labs (TB) need drawn. They plan on going tomorrow to get labs drawn - may be outside lab. ? Malinda's phone number: [phone] Naresh Barrett PharmD, [facility] Outpatient Clinical Pharmacist [place] [facility] [id number] 10/21/23 4:03 PM [facility] 10-21-2023 Note Prior Authorization for Actemra has been approved 11/04/2023-05/06/2024. Case ID/Authorization Number: [id number] Mony Lin [facility] 11/04/23 2:12 PM [facility] 10-21-2023 Note We received a bank s tatement but it doesn't show the whole social security deposit. I am nervous to submit anything since it is an appeal with PAP so I don't know if they will accept multiple times. I talked to the daughter again about reapplying for extra help, I got her to the website and she is going to try to do that. I really think that will help more than getting PAP because it will lower cost for all medications. However, I don't know how long the extra help will take so I am going to write a letter in the meantime for the extra help application. Brynn Patricia, Basil, [facility] 12/23/23 2:01 PM [place] [facility] [phone] [facility] 10-21-2023 Note Called and spoke wit h the patient's daughter and she plans to complete labs on Friday. Negro Curry, Clinical Data Management Manager 10/24/23 1:21 PM [facility] 10-21-2023 Note The patient's daught er called to check on the status of the PAP application. I informed her that as of 12/08/23 they were still reviewing it. I let her know that once we have an update, we will let her know. Alexa Bass [facility] 12/10/23 10:01 AM [facility] 10-21-2023 Note Patient's daughter manuel nation and she has not yet faxed the SS statement, but will today. Mony Lin [facility] 12/15/23 12:17 PM [facility] 10-21-2023 Note PAP denied due to in come being too high because they considered her daughters income. Based on pts income of $1590/month should qualify for extra help. Tried to call program and they are all in a meeting, will try again tomorrow. Brynn Patricia PharmD, BCACP 12/11/23 3:58 PM [facility] [phone] [facility] 10-21-2023 Note Deya called back an d said she was trying to send the bank statement with name ; I let her know that is not how we received it. I stated we probably need something that shows Jose as the account holdr - like a monthly statement. She is going to try to email to Jhoana today. Naresh Barrett PharmD, [facility] Outpatient Clinical Pharmacist [place] [facility] [id number] 12/23/23 12:56 PM [facility] 10-21-2023 Note Patient's caregiver called to confirm address for mailing and copay. Copay is over $700 this month. They will call the insurance to see what is going on and I said we will look into PAP programs and get an application started in case this is something that can't be fixed through insurance. Printed application and started a PAP folder. Awaiting call back. PAP forms in a folder printed claim and med and allergy list. Faxed MD portion for signature. Greg Baltazar CPhT [place] [facility] 12/01/23 11:30 AM [facility] 10-21-2023 Note Daughter faxed us th e patient portion of the PAP application. I faxed to [place] [employer]. Jhoana Callejas PharmD Outpatient Clinical Pharmacist [place] [facility] [phone] 12/03/23 4:22 PM [facility] 10-21-2023 Note I spoke to pts luis alfredo milian and she said she faxed the PAP application to the program yesterday instead of to us. Dr Jasso sent us his portion so I faxed that in. Daughter is also supposed to fax us a copy of the PAP application since we normally fax everything in together. She said her mom is due for an injection Friday. I asked Dr. Jasso if he has any samples because I highly doubt the tram will be approved and med shipped in time for that dose. I also discussed with patient's daughter that she should try to reapply for medicare Extra Help because to me it looks like she lost that and that is why the copay went up so high. Megan MorrisonD, [facility] 12/03/23 3:00 PM [place] [facility] [phone] [facility] 10-21-2023 Note TB test came back ne [facility] on 10/30/23. Will submit PA to [facility]. Awaiting determination. Deb Blount, Clinical Data Management Manager [place] [facility] [id number] 11/04/23 11:50 AM [facility] 10-21-2023 Note Faxed appeal to [employer] PAP with letter I wrote and bank statements we received. Megan MorrisonD, SH[facility] 12/24/23 12:25 PM [place] [facility] [phone] [facility] 10-21-2023 Note Subjective Patient ID: Jose David is a 78 y.o. female who presents for Follow-up (GCA). HPI She was admitted to [facility] end of August 2023 due to bilateral vision loss. She underwent bilateral TA biopsy, which confirmed GCA. She is using prednisone 60 mg daily and bactrim. She does not have much vision left, have difficulty ambulating with no assistance. Review of Systems Constitutional: Positive for activity change and fatigue. Negative for appetite change, chills and fever. HENT: Negative for congestion and ear pain. Eyes: Negative for pain and discharge. Respiratory: Negative for cough, shortness of breath and wheezing. Cardiovascular: Negative for chest pain, palpitations and leg swelling. Gastrointestinal: Negative for abdominal distention and abdominal pain. Endocrine: Negative for cold intolerance and polyuria. Genitourinary: Negative for difficulty urinating, dysuria, frequency and hematuria. Musculoskeletal: Positive for back pain. Negative for arthralgias, gait problem and joint swelling. Skin: Negative for rash and wound. Neurological: Positive for dizziness. Negative for numbness and headaches. Hematological: Negative for adenopathy. Psychiatric/Behavioral: Negative for agitation, behavioral problems and confusion. Objective Visit Vitals BP 124/66 (BP Location: Left arm, Patient Position: Sitting, BP Cuff Size: Adult) Pulse 100 Physical Exam Vitals and nursing note reviewed. Constitutional: General: She is not in acute distress. Appearance: She is normal weight. She is ill-appearing. She is not toxic-appearing or diaphoretic. HENT: Head: Normocephalic and atraumatic. Right Ear: External ear normal. Left Ear: External ear normal. Nose: Nose normal. Mouth/Throat: Mouth: Mucous membranes are moist. Pharynx: Oropharynx is clear. Eyes: General: No scleral icterus. Right eye: Discharge present. Left eye: Discharge present. Extraocular Movements: Extraocular movements intact. Conjunctiva/sclera: Conjunctivae normal. Pupils: Pupils are equal, round, and reactive to light. Cardiovascular: Rate and Rhythm: Normal rate and regular rhythm. Heart sounds: No murmur heard. No friction rub. No gallop. Pulmonary: Effort: No respiratory distress. Breath sounds: No stridor. No wheezing, rhonchi or rales. Chest: Chest wall: No tenderness. Abdominal: General: Abdomen is flat. There is no distension. Palpations: Abdomen is soft. There is no mass. Tenderness: There is no abdominal tenderness. Musculoskeletal: General: No swelling, tenderness or deformity. Normal range of motion. Cervical back: Normal range of motion and neck supple. No tenderness. Right lower leg: No edema. Left lower leg: No edema. Skin: General: Skin is warm. Coloration: Skin is not jaundiced. Findings: No bruising, erythema, lesion or rash. Neurological: General: No focal deficit present. Mental Status: She is alert and oriented to person, place, and time. Cranial Nerves: No cranial nerve deficit. Motor: No weakness. Psychiatric: Mood and Affect: Mood normal. Behavior: Behavior normal. Assessment/Plan Giant cell arteritis, biopsy proven both sides 08/2023. bilateral vision loss. She underwent bilateral TA biopsy, which confirmed GCA. She is using prednisone 60 mg daily and bactrim. Taper prednisone to 50 mg daily and start actemra subcutaneous, she lost vision both eyes and have active disease with elevated ESR. 2. Steroid use. We will need DEXA Scan and anti resporptive therapy. 3. Actemra use. We discussed the risk of infection and need for lab testing every 3 months to monitor for toxicity. [facility] 10-17-2023 Miscellaneous Notes Patients daughter, Malinda said that the patient will need refills [...] have to fill. [facility] Tele[facility] encounter Note Patients Malinda cuadra [...] phone number Request was made by: patients daughterMalinda Medication Refill request: Medication Name and Strength: [...] pharmacy - specify address & phone number [facility] [employer] 10-17-2023 Telephone encounter Note I have attempted to contact this patient by phone with the following results: left detailed message regarding that since patient has not been seen in clinic PCP or the provider that prescribed medication will have to fill. [facility] [employer] 10-16-2023 History of Present illness Narrative Images from the original note were not included. [facility] [address] [facility] [id number] Subjective: Patient ID: Jose David is a [...] Vision blurred Stroke-like symptoms Giant cell arteritis ([facility]) Current Outpatient Medications: acetaminophen (TYLENOL EXTRA STRENGTH) [...] orders for this visit: Giant cell arteritis ([facility]) Plan Plan: Referral to rheumatology for management of temporal arteritis. Continue steroids in the meanwhile Mouna Bautista MD [facility] Miscellaneous Notes Please ask the following [...] OPINION? - Patient saw Dr. Byrne at [facility] Visit 09/23-08/26/2023 5. PATIENT IS SCHEDULED ON/WITH: - 12/05/2023 at 10:[address] Santana documented in this encounter [facility] 09-29-2023 Telephone encounter Note Please ask the [...] OPINION? - Patient saw Dr. Byrne at [facility] Hospital Visit 09/23-08/26/2023 5. PATIENT IS SCHEDULED ON/WITH: - 12/05/2023 at 10:[address] [facility]ana [facility] 09-26-2023 Nurse Note Patient alert and oriented. IV and telemetry discontinued. All discharge instructions have been reviewed and are understood by the patient and daughter. Patient left the unit via wheelchair with all of their belongings and in no distress. Patient discharged home. [facility] 09-26-2023 Nurse Note Patient alert and oriented. IV and telemetry discontinued. All discharge instructions have been reviewed and are understood by the patient and daughter. Patient left the unit via wheelchair with all of their belongings and in no distress. Patient discharged home. documented in this encounter [facility] 09-26-2023 Hospital course Narrative Images from the original note were not included. [facility] Physicians- [facility] Medicine Discharge Summary Patient's Name: Jose David [...] Service Specialty Jose Shaw MD -- Hematology [place] Bartlett MD Z Ophthalmology Ophthalmology Gonzales Carrillo MD Z Vascular Surgery Vascular Surgery Jt Jasso MD [...] of the discharge: peripheral smear, flow cytometry, SPEP Hospital Course Jose Davidis a 78 y.o.female with no significant past medical history, she presented to the hospital with bilateral vision loss. Patient started to notice blurry vision in her left eye 09/19, she was evaluated by Ophthalmology outpatient who referred her to eye center in [place]. Over the weekend her left eye vision significantly deteriorated to a point where she could no longer see. On 09/22, she started developing vision loss in her right eye. She visited the eye center who sent her to ER right away. Patient initially presented to the [facility] ER, she was given Solu-Medrol 250 mg IV once and transferred to [facility] for further workup. Patient was evaluated by [...] Your Medications These medications were sent to [facility]/pharmacy #[id number] [address] aspirin 81 mg cyanocobalamin 1000 MCG tablet [...] Diet: Adult diet Regular Texture Adult diet John Patel, [address] [facility] [address] Schedule an appointment as soon as possible for a visit in 1 week(s) Jt Jasso MD [address] Rheumatology [facility] [phone] Schedule an appointment as soon as possible for a visit in 2 week(s) Joni Pizano MD [address] [facility], [address] [phone] Schedule an appointment as soon as possible for a visit in 2 week(s) Sandy Pizano MD [address] [facility], [address], [address], [address] [facility] [phone] Schedule an appointment as soon as possible for a visit in 1 month(s) Montana Bartlett MD [address] [facility] [address] Schedule an appointment as soon as possible [...] questions. Electronically signed by: BART MILIAN MD [facility] Physician Hospitalists, Department of Internal Medicine 09/26/23 1:16 PM documented in this encounter [facility] 09-26-2023 Hospital Discharge instructions Bart Milian MD - 09/26/2023 1:15 PM EST You are started on Aspirin to reduce terminal system operator risk of vascular complications with you suspected condition (giant cell arteritis) also it will help with preventing thrombosis (clotting) given your Thrombocytosis (elevated platelet count). Please discuss any concerns with your primary care provider, operating engineer apprentice or surveillance supervisor Discuss with primary care or operating engineer apprentice DEXA scan as you are expected to be on steroid medications for prolonged period of time (up to 6 months). Log term steroids can cause Osteoporosis. The following attachments cannot be sent through Care Everywhere.Polymyalgia rheumatica and giant cell arteritis ([place])documented in this encounter [facility] 09-26-2023 History of Present illness Narrative Images from the original note were not included. [facility] Rheumatology PROGRESS NOTE DATE OF ADMISSION 09/23/2023 12:25 AM REASON FOR CONSULTATION: Acute B/L sudden painless vision loss concerning for B/l GCA REFERRING PHYSICIAN: Goran Thomas MD PCP JOHN PATEL DO ASSESSMENT AND PLAN: B/L vision loss likely 2/2 GCA -Pt's initial symptoms were blur vision in L eye but unfortunately when she presented to [facility] she had complete vision loss [...] SSA, SSB, scleroderma antibody, Tiki 1, Mejia, GOLF BALL INSPECTOR, anti dsDNA, anti chromatin were negative. -No [...] no significant past medical history presented to [facility] 09/24 for concerns of vision loss in left eye. Patient was evaluated by experimental mechanic electrical on 09/19/2023 due to blurry vision left [...] concerns of giant cell arteritis. Initially at [facility] she was given Solu-Medrol 250 mg IV 1 dose and then transferred to [facility]. On presenting to [facility], she had complete vision loss in both eyes. She was started on IV Solu-Medrol 1000 mg for 3 days. She underwent bilateral temporal artery biopsy on 09/25/2023. During this admission she had workup done which showed positive SILVIA screen, mildly elevated rheumatoid factor at 21 and elevated anticentromere antibody. Anca ribosomal antibody, SSA, SSB, scleroderma antibody, Tiki 1, Mejia, GOLF BALL INSPECTOR, anti dsDNA, anti chromatin were negative. PAST MEDICAL HISTORY: History reviewed. No pertinent past medical history. PAST SURGICAL HISTORY: Past Surgical History: Procedure Laterality Date APPENDECTOMY BIOPSY ARTERY TEMPORAL Bilateral 09/25/2023 Performed by Kristel Reid MD at [facility] TONSILLECTOMY TUBAL LIGATION ALLERGIES: Allergies Allergen Reactions [...] of the major arterial structures in the [place] of [place]. The paranasal sinuses are clear. [...] of the major arterial structures in the [place]. The paranasal sinuses are clear. [...] from the original note were not included. [facility] Vascular [place] Vascular Service Progress Note Subjective: Status post [...] sodium chloride, 3 mL, intravenous, Q12H SIXTO sulfamethoxazole-trimethoprim, 1 tablet, oral, Once per day [...] plan of care Jose De León MD,MD FACS 11:24 AM 09/26/2023 Images from the original note were not included. [facility] Hospitalists Progress Note 09/25/2023 Patient Name: [...] 09/25/2023 Performed by Kristel Reid MD at [facility] TONSILLECTOMY TUBAL LIGATION OBJECTIVE Vital Signs: Temp: [...] presents to the emergency department from her dermatology teacher's office. She was being evaluated with an dermatology teacher for possible giant cell arthritis. She said [...] Juaquin Del Cid MD Associated attestation - Kristel Reid MD - 09/25/2023 7:30 AM EST OR today. Images from the original note were not included. [facility] Neurology General Neurology Consultation Note Consult Neurology Service: [phone] Primary Team: [facility] Chief Complaint and Reason for Consultation: Vision [...] was given referral to eye center in [facility], on Friday and Friday, vision on the left eye worsened significantly and she lost her vision on the left eye. On Friday 09/22, patient came to [place] to see an eye doctor, who asked her to go to the ED. patient initially went to [facility], given Solu-Medrol 250 mg IV once, transferred to [facility] for further workup and ophthalmology evaluation. According to the patient, her right eye vision worsened significantly on Friday, and she lost her vision on both eyes. Patient had no past medical history, she has not taking any scheduled medications, patient lives with her daughter, she is driving and working. Walking with no assistive devices. Upon initial assessment in [facility], patient had complete vision loss on both [...] CTH, head and neck CTA done at [facility], reportedly unremarkable Impression: Binocular vision [...] to Friday 12-1:00 p.m. Primary Neurology service: [phone] Consult neurology service: [phone] Resident Stroke Service: [phone] If the patient belongs to the Stroke [...] from the original note were not included. [facility] Physicians Hospitalists Progress Note 09/24/2023 Patient Name: [...] IgG [id number] - 1,741 mg/dL Free [place] Lt Chains 2.91 (H) 0.33 - 1.94 [...] of the major arterial structures in the [place]. The paranasal sinuses are clear. [...] of the major arterial structures in the [place]. The paranasal sinuses are clear. [...] from the original note were not included. [facility] Neurology General Neurology Consultation Note Consult Neurology Service: [phone] Primary Team: SAMUEL Chief Complaint and Reason [...] was given referral to eye center in [facility], on Friday and Friday, vision on the left eye worsened significantly and she lost her vision on the left eye. On Friday 09/22, patient came to [place] to see an eye doctor, who asked her to go to the ED. patient initially went to [facility], given Solu-Medrol 250 mg IV once, transferred to [facility] for further workup and ophthalmology evaluation. According to the patient, her right eye vision worsened significantly on Friday, and she lost her vision on both eyes. Patient had no past medical history, she has not taking any scheduled medications, patient lives with her daughter, she is driving and working. Walking with no assistive devices. Upon initial assessment in [facility], patient had complete vision loss on both [...] CTH, head and neck CTA done at [facility], reportedly unremarkable Impression: Binocular vision [...] to Friday 12-1:00 p.m. Primary Neurology service: [phone] Consult neurology service: [phone] Resident Stroke Service: [phone] If the patient belongs to the Stroke [...] from the original note were not included. [facility] 09/23/2023 Patient Name: [...] correct any mistakes. documented in this encounter [facility] 09-26-2023 Progress note Formatting of t his [...] - Sophia Rajan RN 09/26/23 11:05 AM [facility] 09-26-2023 Miscellaneous Notes Images from the original [...] at the bedside 7. Instruct patient/ patient commercial sales representative about use of safety devices 8. Include patient/ patient commercial sales representative in decisions related to safety Note: Evaluation of progress towards goal: No reports of injury during shift. Safety measures in place Problem: Low Risk Fall Score Description: Clifford Fall Score of 0 - 24 or indicated by [facility] Assessment Goal: Patient should be free from fall Description: Interventions: 1. [place] to environment 2. Hourly rounds addressing the [...] non-skid footwear 11. Teach patient and patient commercial sales representative to maintain environment for safety [...] Description: INTERVENTIONS: 1. Encourage patient or legal commercial sales representative to report early pain and [...] per policy 9. Teach patient or legal commercial sales representative interventions for comforting Outcome: Progressing [...] at the bedside 7. Instruct patient/ patient commercial sales representative about use of safety devices 8. Include patient/ patient commercial sales representative in decisions related to safety [...] hygiene technique 7. Identify and instruct patient/patient commercial sales representative in use of appropriate isolation precautions for identified infection/symptoms 8. Provide and discuss with patient/patient commercial sales representative on educational MDRO sheet 9. Encourage and monitor nutritional status daily and consult tack puller if indicated 10. Implement neutropenic guidelines as needed 11. Review exposure to history of communicable disease and recent travel history on admission 12. Encourage annual influenza vaccine 13. Encourage pneumonia vaccine Outcome: Progressing Note: Evaluation of progress towards goal: Patient free from signs of infection. Afebrile. Continue to Monitor. Problem: Knowledge Deficit Goal: Patient/patient commercial sales representative demonstrates understanding of disease process, [...] of 0 - 24 or indicated by [facility] Assessment Goal: Patient should be free from fall Description: Interventions: 1. [place] to environment 2. Hourly rounds addressing the [...] non-skid footwear 11. Teach patient and patient commercial sales representative to maintain environment for safety and engage in all aspects of fall prevention program Outcome: Progressing Note: Evaluation of progress towards goal: Patient free from falls and injury. Continue to monitor. Problem: Moderate - High Risk Fall Score Description: Clifford Fall Score of =/> 25 or indicated by [facility] Assessment Goal: Patient should be free from fall Description: Interventions: 1. [place] to environment 2. Hourly rounds addressing the [...] non-skid footwear 11. Teach patient and patient commercial sales representative to maintain environment for safety [...] (cane, walker) within reach 19. Request patient commercial sales representative bring adaptive equipment/mobility aids from home or obtain and provide as needed 20. Consult pharmacy regarding effects of med's affecting mobility, cognition, and alternatives 21. Obtain physician order for PT if risk factors associated with mobility are present 22. Obtain physician order for OT as appropriate 23. Utilize diversional activities 24. Educate patient and patient commercial sales representative how to maintain a safe environment during visitation times (notify nurse prior to leaving bedside) 25. Consider appropriateness of medical or non-medical laboratory technical officer 26. Set up voiding schedule as appropriate [...] days ago. She was evaluated by her dermatology teacher who felt that vision loss was secondary [...] Artery SURGICAL PATHOLOGY Kristel Reid MD 09/25/2023 08 2 : RIGHT TEMPORAL ARTERY BIOPSY Tissue Artery SURGICAL PATHOLOGY Kristel Reid MD 09/25/2023 0808 Implants: None Complications: None Disposition: PACU - hemodynamically stable. Condition: stable Kristel Reid MD [facility] Problem: Low Risk Fall Score Description: Clifford Fall Score of 0 - 24 or indicated by [facility] Assessment Goal: Patient should be free from fall Description: Interventions: 1. [place] to environment 2. Hourly rounds addressing the [...] non-skid footwear 11. Teach patient and patient commercial sales representative to maintain environment for safety [...] Description: INTERVENTIONS: 1. Encourage patient or legal commercial sales representative to report early pain and [...] per policy 9. Teach patient or legal commercial sales representative interventions for comforting Outcome: Progressing [...] at the bedside 7. Instruct patient/ patient commercial sales representative about use of safety devices 8. Include patient/ patient commercial sales representative in decisions related to safety [...] hygiene technique 7. Identify and instruct patient/patient commercial sales representative in use of appropriate isolation precautions for identified infection/symptoms 8. Provide and discuss with patient/patient commercial sales representative on educational MDRO sheet 9. Encourage and monitor nutritional status daily and consult tack puller if indicated 10. Implement neutropenic guidelines as needed 11. Review exposure to history of communicable disease and recent travel history on admission 12. Encourage annual influenza vaccine 13. Encourage pneumonia vaccine Outcome: Progressing Note: Evaluation of progress towards goal: Patient afebrile, Monitoring labs. Problem: Knowledge Deficit Goal: Patient/patient commercial sales representative demonstrates understanding of disease process, [...] Description: INTERVENTIONS: 1. Encourage patient or legal commercial sales representative to report early pain and [...] per policy 9. Teach patient or legal commercial sales representative interventions for comforting Outcome: Progressing [...] at the bedside 7. Instruct patient/ patient commercial sales representative about use of safety devices 8. Include patient/ patient commercial sales representative in decisions related to safety [...] hygiene technique 7. Identify and instruct patient/patient commercial sales representative in use of appropriate isolation precautions for identified infection/symptoms 8. Provide and discuss with patient/patient commercial sales representative on educational MDRO sheet 9. Encourage and monitor nutritional status daily and consult tack puller if indicated 10. Implement neutropenic guidelines as [...] Description: INTERVENTIONS: 1. Encourage patient or legal commercial sales representative to report early pain and [...] per policy 9. Teach patient or legal commercial sales representative interventions for comforting Outcome: Progressing [...] at the bedside 7. Instruct patient/ patient commercial sales representative about use of safety devices 8. Include patient/ patient commercial sales representative in decisions related to safety [...] hygiene technique 7. Identify and instruct patient/patient commercial sales representative in use of appropriate isolation precautions for identified infection/symptoms 8. Provide and discuss with patient/patient commercial sales representative on educational MDRO sheet 9. Encourage and monitor nutritional status daily and consult tack puller if indicated 10. Implement neutropenic guidelines as needed 11. Review exposure to history of communicable disease and recent travel history on admission 12. Encourage annual influenza vaccine 13. Encourage pneumonia vaccine Outcome: Progressing Note: Evaluation of progress towards goal: Patient receiving antibiotics as ordered. Continue to monitor. Problem: Knowledge Deficit Goal: Patient/patient commercial sales representative demonstrates understanding of disease process, [...] be free from fall Description: Interventions: 1. [place] to environment 2. Hourly rounds addressing the [...] non-skid footwear 11. Teach patient and patient commercial sales representative to maintain environment for safety [...] at the bedside 7. Instruct patient/ patient commercial sales representative about use of safety devices 8. Include patient/ patient commercial sales representative in decisions related to safety [...] hygiene technique 7. Identify and instruct patient/patient commercial sales representative in use of appropriate isolation precautions for identified infection/symptoms 8. Provide and discuss with patient/patient commercial sales representative on educational MDRO sheet 9. Encourage and monitor nutritional status daily and consult tack puller if indicated 10. Implement neutropenic guidelines as needed 11. Review exposure to history of communicable disease and recent travel history on admission 12. Encourage annual influenza vaccine 13. Encourage pneumonia vaccine Outcome: Progressing Note: Evaluation of progress towards goal: Patient has no signs and symptoms of infection. Problem: Low Risk Fall Score Description: Clifford Fall Score of 0 - 24 or indicated by [facility] Assessment Goal: Patient should be free from fall Description: Interventions: 1. [place] to environment 2. Hourly rounds addressing the [...] non-skid footwear 11. Teach patient and patient commercial sales representative to maintain environment for safety and engage in all aspects of fall prevention program Outcome: Progressing Note: Evaluation of progress towards goal: Patient remained free from falls. Will continue to utilized fall prevention measures. documented in this encounter [facility] 09-26-2023 Plan of care note Problem: Safety [...] at the bedside 7. Instruct patient/ patient commercial sales representative about use of safety devices 8. Include patient/ patient commercial sales representative in decisions related to safety Note: Evaluation of progress towards goal: No reports of injury during shift. Safety measures in place [facility] 09-25-2023 Plan of care note Problem: Low Risk Fall Score Description: Clifford Fall Score of 0 - 24 or indicated by [facility] Assessment Goal: Patient should be free from fall Description: Interventions: 1. [place] to environment 2. Hourly rounds addressing the [...] non-skid footwear 11. Teach patient and patient commercial sales representative to maintain environment for safety and engage in all aspects of fall prevention program Outcome: Progressing Note: Evaluation of progress towards goal: Patient remained free from falls. Will continue to utilized fall prevention measures. [facility] 09-25-2023 Progress note Formatting of t his [...] - Sophia Rajan RN 09/25/23 1:09 PM [facility] 09-25-2023 Plan of care note Problem: Pain Goal: Patient goal is pain score less than 4, able to rest, and participant in treatment plan as appropriate Description: INTERVENTIONS: 1. Encourage patient or legal commercial sales representative to report early pain and [...] per policy 9. Teach patient or legal commercial sales representative interventions for comforting Outcome: Progressing [...] at the bedside 7. Instruct patient/ patient commercial sales representative about use of safety devices 8. Include patient/ patient commercial sales representative in decisions related to safety [...] hygiene technique 7. Identify and instruct patient/patient commercial sales representative in use of appropriate isolation precautions for identified infection/symptoms 8. Provide and discuss with patient/patient commercial sales representative on educational MDRO sheet 9. Encourage and monitor nutritional status daily and consult tack puller if indicated 10. Implement neutropenic guidelines as needed 11. Review exposure to history of communicable disease and recent travel history on admission 12. Encourage annual influenza vaccine 13. Encourage pneumonia vaccine Outcome: Progressing Note: Evaluation of progress towards goal: Patient free from signs of infection. Afebrile. Continue to Monitor. Problem: Knowledge Deficit Goal: Patient/patient commercial sales representative demonstrates understanding of disease process, [...] be free from fall Description: Interventions: 1. [place] to environment 2. Hourly rounds addressing the [...] non-skid footwear 11. Teach patient and patient commercial sales representative to maintain environment for safety and engage in all aspects of fall prevention program Outcome: Progressing Note: Evaluation of progress towards goal: Patient free from falls and injury. Continue to monitor. Problem: Moderate - High Risk Fall Score Description: Clifford Fall Score of =/> 25 or indicated by [facility] Assessment Goal: Patient should be free from fall Description: Interventions: 1. [place] to environment 2. Hourly rounds addressing the [...] non-skid footwear 11. Teach patient and patient commercial sales representative to maintain environment for safety [...] (cane, walker) within reach 19. Request patient commercial sales representative bring adaptive equipment/mobility aids from home or obtain and provide as needed 20. Consult pharmacy regarding effects of med's affecting mobility, cognition, and alternatives 21. Obtain physician order for PT if risk factors associated with mobility are present 22. Obtain physician order for OT as appropriate 23. Utilize diversional activities 24. Educate patient and patient commercial sales representative how to maintain a safe environment during visitation times (notify nurse prior to leaving bedside) 25. Consider appropriateness of medical or non-medical laboratory technical officer 26. Set up voiding schedule as appropriate (every 2 hours) Outcome: Progressing Note: Evaluation of progress towards goal: Patient free from falls and injury. Continue to monitor. [facility] [employer] 09-25-2023 Consult note Associated Order (s): IP CONSULT TO RHEUMATOLOGY Images from the original note were not included. 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 -No concern for RA or scleroderma given lack of clinical symptoms Discussed with attending Dr. Romero Shah PGY-5, Rheumatology CHIEF COMPLAINT: Visual loss HISTORY OF PRESENT ILLNESS: Jose David is a 78 y.o. White or female who presents with no significant past medical history presented to [facility] 09/24 for concerns of vision loss in left eye. Patient was evaluated by experimental mechanic electrical on 09/19/2023 due to blurry vision left [...] concerns of giant cell arteritis. Initially at [facility] she was given Solu-Medrol 250 mg IV 1 dose and then transferred to [facility]. On presenting to [facility], she had complete vision loss in both eyes. She was started on IV Solu-Medrol 1000 mg for 3 days. She underwent bilateral temporal artery biopsy on 09/25/2023. During this admission she had workup done which showed positive SILVIA screen, mildly elevated rheumatoid factor at 21 and elevated anticentromere antibody. Anca ribosomal antibody, SSA, SSB, scleroderma antibody, Tiki 1, Mejia, GOLF BALL INSPECTOR, anti dsDNA, anti chromatin were negative. PAST [...] of the major arterial structures in the [place]. The paranasal sinuses are clear. [...] of the major arterial structures in the [place]. The paranasal sinuses are clear. [...] IgG 992 635 - 1,741 mg/dL Free [place] Chains 2.91 (H) 0.33 - 1.94 [...] 0.4 - 2.2 % Associated attestation - Jt Jasso MD - 09/25/2023 7:47 PM EST I have seen, examined and performed braswell parts of this encounter with my resident and I agree with the assessment and plan. [facility] Consult note Associated Order (s): IP CONSULT TO RHEUMATOLOGY Images from the original note were not included. 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 -No concern for RA or scleroderma given lack of clinical symptoms Discussed with attending Dr. Romero Shah PGY-5, Rheumatology CHIEF COMPLAINT: Visual loss HISTORY OF PRESENT ILLNESS: Jose David is a 78 y.o. White or female who presents with no significant past medical history presented to [facility] 1/31 for concerns of vision loss in left eye. Patient was evaluated by experimental mechanic electrical on 09/19/2023 due to blurry vision left [...] concerns of giant cell arteritis. Initially at [facility] she was given Solu-Medrol 250 mg IV 1 dose and then transferred to [facility]. On presenting to [facility], she had complete vision loss in both eyes. She was started on IV Solu-Medrol 1000 mg for 3 days. She underwent bilateral temporal artery biopsy on 09/25/2023. During this admission she had workup done which showed positive SILVIA screen, mildly elevated rheumatoid factor at 21 and elevated anticentromere antibody. Anca ribosomal antibody, SSA, SSB, scleroderma antibody, Tiki 1, Mejia, GOLF BALL INSPECTOR, anti dsDNA, anti chromatin were negative. PAST [...] of the major arterial structures in the [place]. The paranasal sinuses are clear. [...] Sathish Charlton DO on 09/24/2023 4:18 AM iGlbert Kline MD have personally reviewed the image(s) [...] of the major arterial structures in the [place]. The paranasal sinuses are clear. [...] IgG 992 635 - 1,741 mg/dL Free [place] Lt Chains 2.91 (H) 0.33 - 1.94 [...] presents to the emergency department from her dermatology teacher's office. She was being evaluated with an dermatology teacher for possible giant cell arthritis. She said [...] questions or concerns regarding management. ALANNA Guzman [facility] [place] Office/After hours: [phone] ALANNA Guzman 09/24/23 1521 Associated Order(s): IP CONSULT TO SPIRITUAL CARE Summary: Spiritual Care Consult for Advance Directive Assistance Spiritual Care Consult for Advance Directive Assistance Advance Directive: Fig Caprifier provided patient with education on the need for advance directives and a copy of the [place] Advance Directive packet. Fig Caprifier assisted patient in completing the advance directives. Patient completed and signed a healthcare power of business attorney. Patient was given the original and a copy. One copy placed in patient's chart. A sieve grader tender is available 17/03 to offer spiritual and emotional support and may be reached through the [facility] brick setter operator at [phone]. Associated Order(s): IP CONSULT TO OPHTHALMOLOGY Date: Reason for consult: I have been asked to evaluate the eyes of this 78-year-old lady who noticed sudden onset of foggy in the left eye 4 days ago this rapidly progressed to complete loss of vision in the left eye.. She saw an experimental mechanic electrical who indicated to her that she had [...] the patient was given a referral to dermatology teacher. Over the weekend patients vision in left eye continued to worsen and eventually lost all vision in left eye. Patient was seen by dermatology teacher 09/22/2023 and time she would decreased vision also in her right eye. It was recommended that she go straight to the emergency department, for concern for giant cell arteritis. Initially she went to [facility] where they gave her Solu-Medrol 250 mg IV 1 dose and then transferred her to [facility]. 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 Caitie Wilder PA-C [facility] [address] [place] [address] September 23, 2023, 10:20 AM Please note that portions of this note were generated using voice recognition M*Modal dictation software. Although every effort was made to ensure the accuracy of this automated cereal chemist, some errors in cereal chemist may have occurred. I have personally performed a face to face evaluation of this patient independently of Ms. Wilder. I have reviewed the assessment findings and plan as documented in the note and made all necessary revisions. I have reviewed lab and imaging data independently. Management plan has been discussed with Ms. Langleyter. My additional findings and orders are as [...] need to start aspirin Joni PIZANO M.D. [facility] Day time contact: After hours answering service: [phone] [place] [address] Associated Order(s): IP CONSULT TO NEUROLOGY Images from the original note were not included. [facility] Neurology General Neurology Consultation Note Consult Neurology Service: [phone] Primary Team: SAMUEL Chief Complaint and Reason [...] was given referral to eye center in [place]?, on Friday and Friday, vision on the left eye worsened significantly and she lost her vision on the left eye. On Friday 09/22, patient came to [place] to see an eye doctor, who asked her to go to the ED. patient initially went to [facility], given Solu-Medrol 250 mg IV once, transferred to [facility] for further workup and ophthalmology evaluation. According to the patient, her right eye vision worsened significantly on Friday, and she lost her vision on both eyes. Patient had no past medical history, she has not taking any scheduled medications, patient lives with her daughter, she is driving and working. Walking with no assistive devices. Upon initial assessment in [facility], patient had complete vision loss on both [...] Reportedly ESR and CRP were elevated at [facility] Imaging: CTH, head and neck CTA done at [facility], reportedly unremarkable Other Testing: None [...] follow Carlitos Caraballo MD PGY-3, Neurology Resident [facility] Staffed with: (Dr. Byrne) This patient is being followed by the Neurology Resident service. Contact attending directly during these hours: Friday to 7:30-8:30 A.M. to Friday 12-1:00 p.m. Primary Neurology service: [phone] Consult neurology service: [phone] Resident Stroke Service: [phone] If the patient belongs to the Stroke [...] Pizano MD, PhD documented in this encounter [facility] 09-25-2023 Procedure note Operative Note Date: September [...] days ago. She was evaluated by her dermatology teacher who felt that vision loss was secondary [...] hemodynamically stable. Condition: stable Kristel Reid MD [facility] 09-25-2023 Attending History and physical note HISTORY AND PHYSICAL INTERVAL NOTE: Jose David 1945 [id number] H&P reviewed. The patient was examined and there are no changes to the H&P. Kristel Reid MD Source Note - Faisal Rascon APRN-[facility] - 09/24/2023 10:37 AM EST Images from the original note were not included. Vascular History and Physical Examination/Consultation Note Reason for Consultation Bilateral temporal artery biopsy, concern for giant cell arteritis History and Present Illness Jose David is a 78 y.o. White or female who presents to the emergency department from her dermatology teacher's office. She was being evaluated with an dermatology teacher for possible giant cell arthritis. She said [...] questions or concerns regarding management. ALANNA Guzman [facility] [place] Office/After hours: [phone] ALANNA Guzman 09/24/23 1521 ALANNA Guzman 09/25/23 0730 [facility] 09-25-2023 History and physical note HISTORY AND PHYSICAL INTERVAL NOTE: Jose David 1945 [id number] H&P reviewed. The patient was examined and [...] presents to the emergency department from her dermatology teacher's office. She was being evaluated with an dermatology teacher for possible giant cell arthritis. She said [...] questions or concerns regarding management. ALANNA Guzman [facility] [place] Office/After hours: [phone] ALANNA Guzman 09/24/23 1521 ALANNA Guzman 09/25/23 4530 Images from the original note were not included. [facility] History and Physical 09/23/2023 Patient [...] on ophthalmology recommendation, patient saw Ophthalmology in [place] today evaluated for possible giant cell arthritis, [...] pedis pulses present and equal bilaterally Skin: Lucas, warm, dry; no rashes or lesions Neurologic: [...] Electronically signed by: MD Nandini PAREDES M.D. [facility] This note was completed using a voice cereal chemist system. Every effort was made to ensure accuracy. However, inadvertent computerized cereal chemist errors may be present. documented in this encounter [facility] 09-24-2023 Plan of care note Problem: Low Risk Fall Score Description: Clifford Fall Score of 0 - 24 or indicated by [facility] Assessment Goal: Patient should be free from fall Description: Interventions: 1. [place] to environment 2. Hourly rounds addressing the [...] non-skid footwear 11. Teach patient and patient commercial sales representative to maintain environment for safety and engage in all aspects of fall prevention program Outcome: Progressing Note: Evaluation of progress towards goal: Patient remained free from falls. Will continue to utilized fall prevention measures. [facility] 09-24-2023 Plan of care note Problem: Pain Goal: Patient goal is pain score less than 4, able to rest, and participant in treatment plan as appropriate Description: INTERVENTIONS: 1. Encourage patient or legal commercial sales representative to report early pain and [...] per policy 9. Teach patient or legal commercial sales representative interventions for comforting Outcome: Progressing [...] at the bedside 7. Instruct patient/ patient commercial sales representative about use of safety devices 8. Include patient/ patient commercial sales representative in decisions related to safety [...] hygiene technique 7. Identify and instruct patient/patient commercial sales representative in use of appropriate isolation precautions for identified infection/symptoms 8. Provide and discuss with patient/patient commercial sales representative on educational MDRO sheet 9. Encourage and monitor nutritional status daily and consult tack puller if indicated 10. Implement neutropenic guidelines as needed 11. Review exposure to history of communicable disease and recent travel history on admission 12. Encourage annual influenza vaccine 13. Encourage pneumonia vaccine Outcome: Progressing Note: Evaluation of progress towards goal: Patient afebrile, Monitoring labs. Problem: Knowledge Deficit Goal: Patient/patient commercial sales representative demonstrates understanding of disease process, treatment plan, medications, and discharge instructions Description: INTERVENTIONS 1. Complete learning assessment and assess knowledge base 2. Provide teaching at level of understanding 3. Provide teaching via preferred learning method(s) Outcome: Progressing Note: Evaluation of progress towards goal: POC reviewed with patient, verbalizes understanding [facility] [employer] 09-24-2023 Progress note Formatting of t his [...] - Sophia Rajan RN 09/24/23 10:57 AM [facility] [employer] 09-24-2023 Consult note Formatting of th is note is different from the original. Images from the original note were not included. Vascular History and Physical Examination/Consultation Note Reason for Consultation Bilateral temporal artery biopsy, concern for giant cell arteritis History and Present Illness Jose Daivd is a 78 y.o. White or female who presents to the emergency department from her dermatology teacher's office. She was being evaluated with an dermatology teacher for possible giant cell arthritis. She said [...] questions or concerns regarding management. ALANNA Guzman [facility] [place] Office/After hours: [phone] ALANNA Guzman 09/24/23 1521 [facility] [employer] Work Phone: 09-23-2023 Plan of care note Problem: Pain Goal: Patient goal is pain score less than 4, able to rest, and participant in treatment plan as appropriate Description: INTERVENTIONS: 1. Encourage patient or legal commercial sales representative to report early pain and [...] per policy 9. Teach patient or legal commercial sales representative interventions for comforting Outcome: Progressing [...] at the bedside 7. Instruct patient/ patient commercial sales representative about use of safety devices 8. Include patient/ patient commercial sales representative in decisions related to safety [...] hygiene technique 7. Identify and instruct patient/patient commercial sales representative in use of appropriate isolation precautions for identified infection/symptoms 8. Provide and discuss with patient/patient commercial sales representative on educational MDRO sheet 9. Encourage and monitor nutritional status daily and consult tack puller if indicated 10. Implement neutropenic guidelines as needed 11. Review exposure to history of communicable disease and recent travel history on admission 12. Encourage annual influenza vaccine 13. Encourage pneumonia vaccine Outcome: Progressing Note: Evaluation of progress towards goal: monitor for signs and symptoms of infection [facility] [employer] 09-23-2023 Plan of care note Problem: Pain Goal: Patient goal is pain score less than 4, able to rest, and participant in treatment plan as appropriate Description: INTERVENTIONS: 1. Encourage patient or legal commercial sales representative to report early pain and [...] per policy 9. Teach patient or legal commercial sales representative interventions for comforting Outcome: Progressing [...] at the bedside 7. Instruct patient/ patient commercial sales representative about use of safety devices 8. Include patient/ patient commercial sales representative in decisions related to safety [...] hygiene technique 7. Identify and instruct patient/patient commercial sales representative in use of appropriate isolation precautions for identified infection/symptoms 8. Provide and discuss with patient/patient commercial sales representative on educational MDRO sheet 9. Encourage and monitor nutritional status daily and consult tack puller if indicated 10. Implement neutropenic guidelines as needed 11. Review exposure to history of communicable disease and recent travel history on admission 12. Encourage annual influenza vaccine 13. Encourage pneumonia vaccine Outcome: Progressing Note: Evaluation of progress towards goal: Patient receiving antibiotics as ordered. Continue to monitor. Problem: Knowledge Deficit Goal: Patient/patient commercial sales representative demonstrates understanding of disease process, [...] of 0 - 24 or indicated by [facility] Assessment Goal: Patient should be free from fall Description: Interventions: 1. [place] to environment 2. Hourly rounds addressing the [...] non-skid footwear 11. Teach patient and patient commercial sales representative to maintain environment for safety and engage in all aspects of fall prevention program Outcome: Progressing Note: Evaluation of progress towards goal: Patient free from falls and injury. Continue to monitor. [employer] 09-23-2023 Consult note Associated Order (s): IP CONSULT TO SPIRITUAL CARE Summary: Spiritual Care Consult for Advance Directive Assistance Spiritual Care Consult for Advance Directive Assistance Advance Directive: Fig Caprifier provided patient with education on the need for advance directives and a copy of the [place] Advance Directive packet. [employer] assisted patient in completing the advance directives. Patient completed and signed a healthcare power of business attorney. Patient was given the original and a copy. One copy placed in patient's chart. A sieve grader tender is available 17/03 to offer spiritual and emotional support and may be reached through the [facility] brick setter operator at [phone]. [employer] 09-23-2023 Progress note Formatting of t his [...] care - LIANE KEN 09/23/23 2:07 PM [employer] 09-23-2023 Progress note Formatting of t his note might be different from the original. Consulted for MAUREEN to rule out embolic process in setting of sudden vision loss. Discussed with neurology, recommend surface echo with bubble study prior to consideration of MAUREEN. If TTE unremarkable and continued concerns, please let us know. ALANNA Rosario 09/23/23 1300 [employer] Work Phone: 09-23-2023 Consult note Associated Order (s): IP CONSULT TO OPHTHALMOLOGY Date: Reason for consult: I have been asked to evaluate the eyes of this 78-year-old lady who noticed sudden onset of foggy in the left eye 4 days ago this rapidly progressed to complete loss of vision in the left eye.. She saw an experimental mechanic electrical who indicated to her that she had [...] is indicated. Thanks Montana Bartlett MD, FACS. [facility] [employer] Work Phone: 09-23-2023 Consult note Associated Order [...] the patient was given a referral to dermatology teacher. Over the weekend patients vision in left eye continued to worsen and eventually lost all vision in left eye. Patient was seen by dermatology teacher 09/22/2023 and time she would decreased vision also in her right eye. It was recommended that she go straight to the emergency department, for concern for giant cell arteritis. Initially she went to [facility] where they gave her Solu-Medrol 250 mg IV 1 dose and then transferred her to [facility]. 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 Caitie Wilder PA-C [facility] [address] [place] [address] September 23, 2023, 10:20 AM Please note that portions of this note were generated using voice recognition M*Modal dictation software. Although every effort was made to ensure the accuracy of this automated cereal chemist, some errors in cereal chemist may have occurred. I have personally performed [...] need to start aspirin Joni PIZANO M.D. [facility] Day time contact: After hours answering service: [phone] [place] [address] [employer] Work Phone: 09-23-2023 Plan of care note [...] at the bedside 7. Instruct patient/ patient commercial sales representative about use of safety devices 8. Include patient/ patient commercial sales representative in decisions related to safety [...] hygiene technique 7. Identify and instruct patient/patient commercial sales representative in use of appropriate isolation precautions for identified infection/symptoms 8. Provide and discuss with patient/patient commercial sales representative on educational MDRO sheet 9. Encourage and monitor nutritional status daily and consult tack puller if indicated 10. Implement neutropenic guidelines as needed 11. Review exposure to history of communicable disease and recent travel history on admission 12. Encourage annual influenza vaccine 13. Encourage pneumonia vaccine Outcome: Progressing Note: Evaluation of progress towards goal: Patient has no signs and symptoms of infection. Problem: Low Risk Fall Score Description: Clifford Fall Score of 0 - 24 or indicated by [facility] Assessment Goal: Patient should be free from fall Description: Interventions: 1. [place] to environment 2. Hourly rounds addressing the [...] non-skid footwear 11. Teach patient and patient commercial sales representative to maintain environment for safety and engage in all aspects of fall prevention program Outcome: Progressing Note: Evaluation of progress towards goal: Patient remained free from falls. Will continue to utilized fall prevention measures. [facility] [employer] [facility] 09-23-2023 Consult note Associated Order (s): IP CONSULT TO NEUROLOGY Images from the original note were not included. [facility] Neurology General Neurology Consultation Note Consult Neurology Service: [phone] Primary Team: SAMUEL Chief Complaint and Reason [...] was given referral to eye center in [place]?, on Friday and Friday, vision on the left eye worsened significantly and she lost her vision on the left eye. On Friday 09/22, patient came to [place] to see an eye doctor, who asked her to go to the ED. patient initially went to [facility], given Solu-Medrol 250 mg IV once, transferred to [facility] for further workup and ophthalmology evaluation. According to the patient, her right eye vision worsened significantly on Friday, and she lost her vision on both eyes. Patient had no past medical history, she has not taking any scheduled medications, patient lives with her daughter, she is driving and working. Walking with no assistive devices. Upon initial assessment in [facility], patient had complete vision loss on both [...] Bulk and muscle tone are intact in upper and lower extremities. No rigidity or [...] Reportedly ESR and CRP were elevated at [facility] Imaging: CTH, head and neck CTA done at [facility], reportedly unremarkable Other Testing: None [...] follow Carlitos Caraballo MD PGY-3, Neurology Resident [facility] Staffed with: (Dr. Byrne) This patient is being followed by the Neurology Resident service. Contact attending directly during these hours: Friday to 7:30-8:30 A.M. to Friday 12-1:00 p.m. Primary Neurology service: [phone] Consult neurology service: [phone] Resident Stroke Service: [phone] If the patient belongs to the Stroke [...] follow and update Sandy Pizano MD, PhD [employer] Work Phone: 09-23-2023 History and physical note Images from the original note were not included. [facility] History and Physical 09/23/2023 Patient [...] on ophthalmology recommendation, patient saw Ophthalmology in [place] today evaluated for possible giant cell arthritis, [...] pedis pulses present and equal bilaterally Skin: Lucas, warm, dry; no rashes or lesions Neurologic: [...] Electronically signed by: MD Nandini PAREDES M.D. [facility] This note was completed using a voice cereal chemist system. Every effort was made to ensure accuracy. However, inadvertent computerized cereal chemist errors may be present. [facility] Evaluation note Diagnosis Vision blurred- Primary Other specified visual disturbances B12 deficiency Thrombocytosis Essential thrombocythemia Vision blurred Other specified visual disturbances Temporal arteritis ([facility]) Giant cell arteritis Stroke-like symptoms documented in this encounter [facility]* Diagnosis Onset Date Resolution Status GERD (gastroesophageal reflux disease) acute Hospital discharge follow-up acute Temporal arteritis acute Vision loss, bilateral acute [facility] Work Phone: Evaluation note* Diagnosis Giant cell arteritis ([facility])- Primary Giant cell arteritis [facility]* Diagnosis Normocytic anemia- Primary Unspecified anemia Thrombocytosis Essential thrombocythemia [facility]* Diagnosis Giant cell arteritis ([facility])- Primary Giant cell arteritis Stroke-like symptoms Vision blurred Other specified visual disturbances Anemia, unspecified type [facility] filed[facility] in this [facility] filed[facility] Summary Purpose Family History No Family History Records FoundNo Family History Records FoundNo Family History Records FoundNo Family History Records FoundNo Family History Records FoundNo Family History Records FoundNo Family History Records Found Advance Directives No Advanced Directives Records FoundDocuments on File Type Date Recorded Patient Telegraph Inspector Expl anation Durable Power of Baby Counselor 09/23/2023 4:17 PM [facility] er of Baby Counselor Latest Code Status on File Code Status Date Activated Date Inactivated Comments Full Code 09/23/2023 12:33 AM 09/26/2023 7:44 PM Healthcare Agents on File Name Relationship Healthcare Agent Relationshi p Communication Mike David Son Health Care Agent [id number] (Home) Malinda Brito Daughter First Alternate Health Care Agent Documents on File Type Date Recorded Patient Telegraph Inspector Expl anation Durable Power of Baby Counselor 09/23/2023 4:17 PM [facility] er of Baby Counselor Latest Code Status on File Code Status Date Activated Date Inactivated Comments Full Code 09/23/2023 12:33 AM 09/26/2023 7:44 PM Healthcare Agents on File Name Relationship Healthcare Agent Relationshi p Communication Mike David Son Health Care Agent [id number] (Home) Malinda Brito Daughter First Alternate Health Care Agent Advance Directive Response Recorded Date/ Time Advance Directives No June 22, 2018 3:12pm Documents on File Type Date Recorded Patient Telegraph Inspector Expl anation Durable Power of Baby Counselor 10/03/2023 8:14 AM Durable Power of Baby Counselor 09/23/2023 4:17 PM [facility] er of Baby Counselor Healthcare Agents on File Name Relationship Healthcare Agent Relationshi p Communication Mike David Son Health Care Agent Malinda Brito Daughter First Alternate Health Care Agent Healthcare Agents on File Name Relationship [facility] Miek David Son Health Care Agent Malinda Brito Daughter First Alternate Health Care Agent Reason for Referral Specialty Diagnoses / Procedures Referred By Jessica ga Referred To Contact Diagnoses B12 deficiency Thrombocytosis Vision blurred Temporal arteritis ([facility]) Procedures Follow-up with primary care provider Bart Milian MD [address] [place] [id number] Referral ID Status Reason Start Date Expiration Date V isits Requested Visits Authorized [id number] Pending Review 09/26/2023 09/25/2024 1 1 Specialty Diagnoses / Procedures Referred By Jessica ga Referred To Contact Procedures Adult diet Bart Milian MD [address] [place] [id number] Referral ID Status Reason Start Date Expiration Date V isits Requested Visits Authorized [id number] Pending Review 09/26/2023 09/25/2024 1 1 Chief Complaint and Reason for Visit Chief Complaint ESTABLISH Reason for Visit GERD (gastroesophage al reflux disease) Hospital discharge follow-up Temporal arteritis Vision loss, bilateral Additional Source Comments INFORMATION SOURCE (unrecogn ized section and content) DATE CREATED AUTHOR 11/18/2021 [facility] DATE CREATED AUTHOR AUTHOR'S ORGANIZ ATION 01/31/2023 [facility] DATE CREATED AUTHOR AUTHOR'S ORGANIZ ATION 04/15/2023 [facility] DATE CREATED AUTHOR AUTHOR'S ORGANIZ ATION 10/04/2023 [facility] DATE CREATED AUTHOR AUTHOR'S ORGANIZ ATION 10/24/2023 [facility] DATE CREATED AUTHOR AUTHOR'S ORGANIZ ATION 11/08/2023 [facility] DATE CREATED AUTHOR AUTHOR'S ORGANIZ ATION 12/28/2023 [facility] Reason for Visit (unrecogniz ed section and content) Specialty Diagnoses / Procedures Referred By Jessica ga Referred To Contact Diagnoses Vision blurred Stroke-like symptoms CVA symptoms Tono Pan MD [address] [place] [address] Referral ID Status Reason Start Date Expiration Date Visits Re quested Visits Authorized [id number] 1 1 Reason Onset Date Comments Hospital Follow-up 09/29/2023 Reason Comments Follow-up Hospital discharge f ollow up. Recent TAB. Reason Onset Date Comments Med Refill 10/17/2023 Reason Comments Follow-up Scheduled Active and Recently Administ ered Medications (unrecognized section and content) Medication Order 09/24/2023 09/25/2023 09/26/2023 cyanocobalamin tablet 1,000 mcg 1,000 mcg, oral, Daily, First dose on Fri09/23/23 at 1400 0837 (Given - Provider: Kimberly Chin RN) 0613 (MAR Hold - Provider: Automatic Transfer Provider - Reason: Patient not available)0900 (Dose Auto Held - Provider: Automatic Transfer Provider)1151 (MAR Unhold - Provider: Automatic Transfer Provider) 0857 (Given - Provider: Caryn Briceno, ASHIA) enoxaparin (LOVENOX) syringe 40 mg 40 mg, subcutaneous, Daily, First dose on Fri09/23/23 at 1415, Look-alike/sound-alike medication - verify indication for use. 0836 (Given - Provider: Kimberly Chin RN) 0613 (MAR Hold - Provider: Automatic Transfer Provider - Reason: Patient not available)0900 (Dose Auto Held - Provider: Automatic Transfer Provider)1151 (MAR Unhold - Provider: Automatic Transfer Provider) 0855 (Given - Provider: Caryn Briceno, ASIHA) methylPREDNISolone sodium succinate (Solu-MEDROL) 1,000 mg in [...] Bag - Provider: Faiza Valverde RN) 0613 (MAR Hold - Provider: Automatic Transfer Provider - Reason: Patient not available)0900 (Dose Auto Held - Provider: Automatic Transfer Provider)1151 (MAR Unhold - Provider: Automatic Transfer Provider) predniSONE [...] Reason: Other) 0901 (Given - Provider: Caryn Briceno RN) sulfamethoxazole-trimet hoprim (BACTRIM DS) 800-160 mg [...] not available)1007 (Given - Provider: Jennifer Lawton RN)1151 (OCT Unhold - Provider: Automatic Transfer Provider) dextrose (GLUTOSE) 40 % gel 15 g 15 g, oral, As needed, low blood sugar, blood glucose less than 70 mg/dL, Starting on Fri09/23/23 at 0032, If patient conscious and taking PO. If blood glucose is not greater than 70 mg/dL after initial treatment, repeat treatment. 612 ([facility] Hold - Provider: Automatic Transfer Provider - Reason: Patient not available)115 ([facility] Unhold - Provider: Automatic Transfer Provider) dextrose 5 % (D5W) infusion 100 mL/hr, intravenous, Continuous PRN, blood glucose less than 70 mg/dL, Starting on Fri09/23/23 at 0032, Use immediately following dextrose 50% or glucagon treatment for patients who are unconscious or NPO. Contact prescriber for additional orders. If blood glucose is not greater than 70 mg/dL after initial treatment, repeat treatment. 612 ([facility] Hold - Provider: Automatic Transfer Provider - Reason: Patient not available)115 ([facility] Unhold - Provider: Automatic Transfer Provider) dextrose [...] treatment. VESICANT (RED) Warning: HYPERTONIC solution. 612 ([facility] Hold - Provider: Automatic Transfer Provider - Reason: Patient not available)115 ([facility] Unhold - Provider: Automatic Transfer Provider) fentaNYL (SUBLIMAZE) injection 50 mcg (CANCELED) 50 mcg, intravenous, Every 5 min PRN, Pain Scale 6-10, Starting on Carrie 09/25/23 at 0924, PACU (only), Up to a maximum dose of 150 mcg Look-alike/sound-alike medication - verify indication for use. 0958 (Given - Provider: Jennifer Lawton, ASHIA)1048 (Given - Provider: Jennifer Lawton RN) gadoteridoL (PROHANCE) injection 5.26 mmol 10.52 [...] mg/dL after initial treatment, repeat treatment. 0613 ([facility] Hold - Provider: Automatic Transfer Provider - Reason: Patient not available)1151 ([facility] Unhold - Provider: Automatic Transfer Provider) ondansetron (PF) (ZOFRAN) injection 4 mg 4 mg, intravenous, Every 8 hours PRN, nausea, vomiting, Starting on Fri09/23/23 at 0032, Administer over 2-5 minutes. 0613 ([facility] Hold - Provider: Automatic Transfer Provider - Reason: Patient not available)1151 ([facility] Unhold - Provider: Automatic Transfer Provider) sennosides-docusate sodium (SENOKOT-S) 8.6-50 mg 1 tablet 1 tablet, oral, Every 12 hours PRN, constipation, Starting on Fri09/23/23 at 0032 0613 ([facility] Hold - Provider: Automatic Transfer Provider - Reason: Patient not available)1151 ([facility] Unhold - Provider: Automatic Transfer Provider) sodium chloride 0.9 % flush 10 mL (COMPLETED) 10 mL, intravenous, Once in imaging, line care, MRI, Starting on Fri09/24/23 at 0153, For 1 dose, Additional Imaging Orders 0154 (Given - Provider: Eva Jackman) sodium chloride 0.9 % flush 3 mL 3 mL, intravenous, As needed, line care, before and after each intermittent use, Starting on Fri09/23/23 at 0032 0613 ([facility] Hold - Provider: Automatic Transfer Provider - Reason: Patient not available)1151 ([facility] Unhold - Provider: Automatic Transfer Provider) sodium chloride 0.9 % flush bag 25 mL, intravenous, at 100 mL/hr, Administer over 15 Minutes, As needed, line care, line care after IVPB administration, Starting on Fri09/23/23 at 0032 0613 ([facility] Hold - Provider: Automatic Transfer Provider - Reason: Patient not available)1151 ([facility] Unhold - Provider: Automatic Transfer Provider) sodium chloride 0.9 % infusion 20 mL/hr, intravenous, Continuous PRN, to maintain patency of lines, Starting on Fri09/23/23 at 0032 1008 (Restarted - Provider: Kimberly Chin RN) 0613 ([facility] Hold - Provider: Automatic Transfer Provider - Reason: Patient not available)1151 ([facility] Unhold - Provider: Automatic Transfer Provider) sodium chloride 0.9% (NS) irrigation bottle (CANCELED) As needed, Starting on Carrie 09/25/23 at 0807, Intra-op 0807 (Given - Provider: Kristel Reid MD - Comment: GIVEN TO [employer]) Care Teams (unrecognized sec tion and content) [employer] Worker Relationship Specialty Start Date End Date John Patel DO [address] [place] [address] PCP - General 01/23/17 [employer] Worker Relationship Specialty Start Date End Date John Patel DO [address] [place] [id number] PCP - General 01/23/17 Team Status: Active Member Role Status Dates Giovanna Graf APRN [employer] CLERK-C Primary Care Provider Active Team Status: Inactive Member Role Status Dates Giovanna Graf APRN [employer]ON[employer] COMPILATION CLERK-C Primary Care Provider, Attending Provider Active Start: October 16, 2023 End: October 16, 2023 [employer] Worker Relationship Specialty Start Date End Date Giovanna Graf APRN-TONNAGE COMPILATION CLERK [address] [place] [id number] PCP - General Nurse Practitioner 10/10/23 [employer] Worker Relationship Specialty Start Date End Date Giovanna Graf APRLOLA [address] [facility] [place] [address] PCP - General Nurse Practitioner 10/10/23 Goals [...] BE BASED ON THE PRIMARY CLINICAL RECORDS. [employer] [facility]. provides no warranty or guarantee of the accuracy or completeness of information in this document.
[2023-12-29 08:31] LABS: Basophils Percent Auto 0.3 % (0.2-2.0); Eosinophils Absolute Auto 0.1 10^3/uL (0.0-0.7); Eosinophils Percent Auto 0.6 % (0.9-7.0); Hematocrit 39.8 % (36.0-48.0); Hemoglobin 12.6 g/dL (12.0-16.0); Immature Granulocytes Abs Auto 0.07 10^3/uL (0.00-0.03); Immature Granulocytes Pct Auto 0.8 % (0.0-0.5); Lymphocytes Absolute Auto 4.4 10^3/uL (1.2-3.8); Lymphocytes Percent Auto 49.7 % (20.5-60.0); Mean Corpuscular HGB Conc 31.7 g/dL (29.9-35.2); Mean Platelet Volume 8.3 fL (9.5-13.5); Monocytes Absolute Auto 0.7 10^3/uL (0.3-0.8); Monocytes Percent Auto 7.3 % (1.7-12.0); Neutrophils Absolute Auto 3.7 10^3/uL (1.4-6.5); Neutrophils Percent Auto 41.3 % (43.0-75.0); Platelet Count 262 10^3/uL (150-450); Red Blood Count 4.06 10^6/uL (4.20-5.40); Red Cell Distribution Width 14.8 % (11.0-15.0); White Blood Count 8.9 10^3/uL (4.0-11.0)
[2023-12-29 09:25] LABS: Erythrocyte Sedimentation Rate 5 mm/hr (<=30)
[2023-12-29 09:37] LABS: Alanine Aminotransferase 23 U/L (14-59); Albumin Globulin Ratio 1.1; Albumin Level 3.2 g/dL (3.4-5.0); Alkaline Phosphatase 43 U/L (46-116); Anion Gap 9.8; Aspartate Amino Transferase 13 U/L (15-37); Bilirubin Total 0.7 mg/dL (0.2-1.0); Calcium 8.7 mg/dL (8.5-10.1); Carbon Dioxide 32.2 mmol/L (21.0-32.0); Chloride 104 mmol/L (98-107); Chol HDL Ratio 2.7; Cholesterol 341 mg/dL (<=200); Estimated GFR (African America >60 (>=60); Estimated GFR (Non-African Ame >60 (>=60); Globulin 2.9 g/dL; Glucose 79 mg/dL (74-106); HDL Cholesterol 127 mg/dL (40-60); Sodium 142 mmol/L (136-145); Total Protein 6.1 g/dL (6.4-8.2); Triglycerides 97 mg/dL (<=150); VLDL CHOLESTEROL 19.4 mg/dL
[2023-12-29 10:29] LABS: BUN Creatinine Ratio 26.3
== END 2023-12-29 07:49 | disposition home or self-care (01) ==
LOC: LAB 07:50
PROVIDERS: PCP Nurse Practitioner Family; Visit Provider Internal Medicine
DX: M31.6 Other giant cell arteritis (principal); R29.90 Unspecified symptoms and signs involving the nervous system; H53.8 Other visual disturbances; D64.9 Anemia, unspecified
CPT/HCPCS: 36415; 80053; 80061; 82728; 83540; 83550; 85025; 85652

== ENCOUNTER 2023-12-29 07:52 | Outpatient (OUT) | payer MEDICARE, SELFPAY ==
--- OUTSIDE RECORDS SUMMARY | 2023-12-29 08:15 | XMS_ITS | CCD ---
Author Organization [facility] Care Team Providers Care Community Arts Officer Name Role Phone LEAH, DR PATO Perez [...] Unavailable JOHN PATEL Primary Care Unavailable Lesia HUANG-URBAN FORESTER, Giovanna Primary Care Provid er JOHN PATEL Referring Unavailable JOHN PATEL Primary Care Unavailable JOHN PATEL Referring Unavailable JOHN PATEL Primary Care Unavailable JOHN PATEL Referring Unavailable JOHN PATEL Primary Care Unavailable MOUNA BAUTISTA Attending Unavailable JOHN PATEL Referring Unavailable GIOVANNA GRAF Primary Care Unavailable ALLIE HOSKINS Attending Unavailable JOHN PTAEL Referring Unavailable GIOVANNA GRAF Primary Care Unavailable JT JASSO I Attending Unavailable JT JASSO I Attending Unavailable Allergies Allergy Classification Reported Allergen(s) Allergy Type Date of Onset Reaction(s) Facility (1 source) Penicillins Drug allergy (disorder) [facility] Repository (10 sources) Penicillin; Translations: [PENICILLIN] Drug Allergy Confusion, Fever [facility] Medications Current Medications Medication Drug [...] 12:02am docusate sodium 50 mg / sennosides, retirement 8.6 mg oral tablet (1 source) Start: [...] Pharmacy for assistance on how to proceed. [facility] 36 Spoke with daughter, pt will have to pay $700 for the Actemra through insurance and does not qualify for PAP due to income, would like to know what you want to do. [facility] Telephoneon 12-10-2023 Telephone [phone] Carlyle David 1945 F Date Provider Department Center 12/10/2023 JT CROOK I [facility]UM [facility] No family history on file [facility] 36on 12-04-2023 36 Spoke with patient's daughter and they will sisal picker tomorrow . [facility] Yes, I have 2 available samples of Actemra. I will contact patient and inform to sisal picker at [facility]. [facility] 36 Do we have Actemra samples Lindsay Perla. [facility] Follow-Upon 11-26-2023 Follow-Up [id number] Carlyle David 1945 F Date Provider Department Center 11/26/2023 JT CROOK I [facility] No family history on file Level of Service:38109 [place] OFFICE/OUTPATIENT ESTABLISHED MOD MDM 30 MIN Reason for Visit and Comments: Follow-up [148667] - [facility] 36on 10-22-2023 36 Pt wondering if she should continue this medication, was prescribed out of the hospital. Please advise [facility] Documentationon 10-21-2023 Documentation [id number] Carlyle David 1945 F Date Provider Department Center 10/21/2023 NARESH LOJA [facility] No family history on file Reason for Visit and Comments: Specialty Pharmacy Note: Actemra [Other] [facility] Follow-Upon 10-21-2023 Follow-Up [id number] Carlyle David M 1945 F Date Provider Department Center 10/21/2023 215-JT JASSO I [facility] No family history on file Level of Service:58222 [place] OFFICE/OUTPATIENT ESTABLISHED MOD MDM 30 MIN Reason for Visit and Comments: Follow-up [271818] - [facility] Normal [facility] Telephoneon 10-01-2023 Telephone [phone] Carlyle David julia Pierson 1945 F Date Provider Department Center 10/01/2023 758-LINDSAY TIERNEY [facility] No family history on file [facility] BASIC METABOLIC PANLon 09-26 Anion gap [Moles/Vol] 8 mmol/L Normal 5-15 [facility] Comment on above: Performed By: #### C BCA, CMP, 1987-12, FEPR, 2275-4, 4-8, 13373-2, 2131-9, 87274-4, 84509-0, 5130-0, 53224-8, 03243-1, 74465-0, 3357-1, 8092-9, 33413-6, 02635-6, 78644-5, 13473-4, 33113-4 #### [facility] ([id number]) [address] [facility], [address] [place] [address] Calcium [Mass/Vol] 7.9 mg/dL Low 8.5-10.5 [facility] Comment on above: Performed By: #### C BCA, CMP, 1987-12, FEPR, 227-4, 2284-8, 85343-9, 2131-9, 70773-5, 59537-2, 5130-0, 95330-1, 84109-8, 76464-4, 3357-1, 8092-9, 82481-0, 58131-3, 80423-9, 02442-2, 19774-3 #### [facility] ([id number]) [address], [address] [place] [address] Chloride [Moles/Vol] 103 mmol/L Normal 98-109 [facility] Comment on above: Performed By: #### C BCA, CMP, 1987-12, FEPR, 2276-4, 2284-8, 07843-5, 2132-9, 25663-8, 66296-3, 5130-0, 11296-8, 45914-5, 80561-8, 3357-1, 8092-9, 14107-6, 13269-4, 11897-5, 97050-0, 61270-3 #### [facility] ([id number]) [address], [address] [place] [address] CO2 [Moles/Vol] 30 mmol/L Normal 22-32 [facility] Comment on above: Performed By: #### C BCA, CMP, 1987-12, FEPR, 2275-4, 2284-8, 37799-8, 2132-9, 91470-4, 39888-2, 5130-0, 11293-0, 57848-9, 18371-2, 3357-1, 8092-9, 73685-7, 35501-0, 30987-2, 04144-0, 76044-6 #### [facility] ([id number]) [address], [address] [place] [address] Creatinine [Mass/Vol] 0.65 mg/dL Normal 0.40-1.00 [facility] Comment on above: Result Comment: METH OD TRACEABLE TO IDMS STANDARD Performed By: #### C BCA, CMP, 1987-12, FEPR, 2276-4, 2284-8, 02257-7, 2132-9, 58887-9, 37616-6, 5130-0, 64383-0, 61262-5, 14332-5, 3357-1, 8092-9, 32075-7, 28902-7, 51686-7, 00084-4, 94023-7 #### [facility] ([id number]) [address] [facility], [facility] [address] [place] [address] eGFR (CKD-EPI) NON-RACE DEPENDENT >90 Normal >59 [facility] Comment on above: Result Comment: Reported eGFR is based on the CKD-EPI 2020 equation that does not use a race coefficient. Performed By: #### C BCA, CMP, 1987-12, FEPR, 2276-4, 2284-8, 05178-9, 2132-9, 02771-8, 03893-0, 5130-0, 40462-7, 59611-7, 40211-8, 3357-1, 8092-9, 77020-5, 22351-8, 52913-3, 39485-1, 60197-6 #### [facility] ([id number]) [address] [facility], [address] [address] Glucose [Mass/Vol] 79 mg/dL Normal 65-99 [facility] Comment on above: Performed By: #### C BCA, CMP, 1987-12, FEPR, 2275-4, 4-8, 38895-3, 2132-9, 53361-0, 96043-3, 5130-0, 11028-8, 70622-5, 50771-6, 3357-1, 8092-9, 47043-8, 93288-5, 32168-4, 90641-3, 34454-3 #### [facility] ([id number]) [address] [facility], [address] [place] [address] Potassium [Moles/Vol] 3.9 mmol/L Normal 3.5-5.0 [facility] Comment on above: Performed By: #### C BCA, CMP, 1987-12, FEPR, 2276-4, 2284-8, 84871-2, 2132-9, 11883-3, 39225-0, 5130-0, 38501-0, 84592-8, 86294-8, 3357-1, 8092-9, 85501-0, 94397-9, 55639-0, 30541-5, 51155-8 #### [facility] ([id number]) [address] [facility], [address] [place] [address] Sodium [Moles/Vol] 141 mmol/L Normal 134-146 [facility] Comment on above: Performed By: #### C BCA, CMP, 1987-12, FEPR, 2276-4, 2284-8, 01684-3, 2132-9, 49184-7, 32755-1, 5130-0, 23250-8, 75431-2, 96529-1, 3357-1, 8092-9, 20352-7, 02220-5, 45470-9, 19891-7, 01429-7 #### [facility] ([id number]) [address] [facility], [address] [address] Urea nitrogen [Mass/Vol] 26 mg/dL Normal 5-27 [facility] Comment on above: Performed By: #### C BCA, CMP, 1987-12, FEPR, 2276-4, 2284-8, 91220-2, 2132-9, 55025-1, 42599-7, 5130-0, 05717-4, 64743-2, 93812-1, 3357-1, 8092-9, 13354-5, 73500-8, 42194-4, 01395-0, 42342-5 #### [facility] ([id number]) [address] [facility], [address] [place] [address] Basic Metabolic Panelon --2023 Anion gap [Moles/Vol] 8 mmol/L 5 - 15 mmol/L [facility] Calcium [Mass/Vol] 7.9 mg/dL Low 8.5 - 10. 5 mg/dL [facility] Chloride [Moles/Vol] 103 mmol/L 98 - 10 9 mmol/L [facility] CO2 [Moles/Vol] 30 mmol/L 22 - 32 mmol/L [facility] Creatinine [Mass/Vol] 0.65 mg/dL 0.40 - 1.00 mg/dL [facility] Comment on above: METHOD TRACEABLE TO IDND STANDARD eGFR (CKD-EPI)non-race dependent - PINF [facility] Comment on above: Reported eGFR is based on the CKD-EPI 2020 equation that does not use a race coefficient. Glucose [Mass/Vol] 79 mg/dL 65 - 99 mg/dL [facility] Interpretation and review of laboratory results Abnormal [facility] Potassium [Moles/Vol] 3.9 mmol/L 3.5 - 5.0 mmol/L [facility] Sodium [Moles/Vol] 141 mmol/L 134 - 146 mmol/L [facility] Urea nitrogen [Mass/Vol] 26 mg/dL 5 - 27 mg/d L [facility] CBC AND AUTO DIFFon 09-26-19 24 ABSOLUTE BASOPHIL 0.1 X10E9/L Normal 0.0-0.2 [facility] Comment on above: Performed By: #### C SHARATH, KELVIN, 1987-12, FEPR, 6-4, 4-8, 69240-9, 2131-9, 56785-9, 42777-6, 5130-0, 42018-5, 71054-1, 46794-6, 3357-1, 8092-9, 42630-4, 35117-4, 15177-4, 17062-2, 16867-1 #### [facility] ([id number]) [address] [facility], [address] [place] [address] ABSOLUTE NEUTROPHIL 7.1 X10E9/L High 1.5-6.6 [facility] Comment on above: Performed By: #### C SHARATH CMP, 1987-12, FEPR, 2276-4, 2284-8, 27341-6, 2131-9, 88917-5, 45266-0, 5130-0, 46616-4, 03517-2, 61724-6, 3357-1, 8092-9, 86234-6, 70737-1, 10632-3, 41470-0, 83979-0 #### [facility] ([id number]) [address], [address] [place] [address] Basophils/100 WBC (Bld) 0.8 % Normal [facility] Comment on above: Performed By: #### C BCA, CMP, 1987-12, FEPR, 2275-4, 2283-8, 34828-8, 2132-9, 63031-5, 28191-3, 5130-0, 22647-4, 91524-6, 14884-1, 3357-1, 8092-9, 17017-7, 33448-9, 26176-9, 00664-0, 28329-1 #### [facility] ([id number]) [address], [address] [place] [address] Eosinophils (Bld) [#/Vol] 0.0 10*3/uL Normal 0.0-0.4 [facility] Comment on above: Performed By: #### C SHARATH, CMP, 1987-12, FEPR, 2275-4, 2283-8, 77063-9, 2-9, 06013-9, 63583-2, 5130-0, 84997-2, 63238-1, 22286-1, 3357-1, 8092-9, 21871-1, 50327-5, 28898-1, 59915-7, 64290-1 #### [facility] ([id number]) [address], [address] [place] [address] Eosinophils/100 WBC (Bld) 0.0 % Normal [facility] Comment on above: Performed By: #### C BCA, CMP, 1987-12, FEPR, 2275-4, 2284-8, 34304-8, 2132-9, 26598-2, 05120-3, 5130-0, 99450-4, 76307-7, 20971-0, 3357-1, 8092-9, 84536-8, 89757-7, 85043-5, 72643-3, 63681-2 #### [facility] ([id number]) [address], [address] [place] [address] Erythrocyte distribution width (RBC) [Ratio] 14.4 % Normal 11.5-15.0 [facility] Comment on above: Performed By: #### C SHARATH, CMP, 1987-12, FEPR, 227-4, 2284-8, 51175-6, 2132-9, 41681-5, 04085-8, 5130-0, 18859-9, 82988-9, 85213-5, 3357-1, 8092-9, 87187-6, 69999-1, 97846-8, 47560-3, 78559-9 #### [facility] ([id number]) [address], [address] [place] [address] Hematocrit (Bld) [Volume fraction] 24.8 % Low 35-47 [facility] Comment on above: Performed By: #### C SHARATH, CMP, 1987-12, FEPR, 2275-4, 2284-8, 54659-3, 2132-9, 51913-1, 24512-5, 5130-0, 93213-0, 43479-8, 22792-3, 3357-1, 8092-9, 49931-0, 39224-1, 02777-1, 51979-6, 19255-7 #### [facility] ([id number]) [address] [facility], [address] [place] [address] Hemoglobin (Bld) [Mass/Vol] 8.2 g/dL Low 11.7-15.5 [facility] Comment on above: Performed By: #### C SHARATH, CMP, 1987-12, FEPR, 2275-4, 2284-8, 72426-1, 2132-9, 40545-4, 29774-0, 5130-0, 74236-2, 86888-4, 20606-1, 3357-1, 8092-9, 72061-8, 73355-2, 51196-7, 91061-7, 47234-5 #### [facility] ([id number]) [address], [address] [place] [address] Lymphocytes (Bld) [#/Vol] 2.4 10*3/uL Normal 1.0-3.5 [facility] Comment on above: Performed By: #### C BCA, CMP, 1987-12, FEPR, 2276-4, 2284-8, 60913-6, 2-9, 30503-2, 75518-2, 5130-0, 76624-3, 30285-0, 79976-2, 3357-1, 8092-9, 23111-1, 80650-0, 00633-2, 23892-2, 81815-2 #### [facility] ([id number]) [address], [address] [place] [address] Lymphocytes/100 WBC (Bld) 22.6 % Normal [facility] Comment on above: Performed By: #### C BCA, CMP, 1987-12, FEPR, 2276-4, 2284-8, 32019-7, 2131-9, 82203-5, 13806-8, 5130-0, 34603-6, 07210-3, 72334-3, 3357-1, 8092-9, 75265-6, 44923-2, 98976-6, 49736-9, 23741-2 #### [facility] ([id number]) [address], [address] [place] [address] MCH (RBC) [Entitic mass] 28.5 pg Normal 27-34 [facility] Comment on above: Performed By: #### C BCA, CMP, 1987-12, FEPR, 2276-4, 2284-8, 66305-4, 2132-9, 65928-7, 05293-8, 5130-0, 12985-3, 62577-2, 46944-9, 3357-1, 8092-9, 67231-5, 08056-3, 27868-9, 69965-3, 90707-6 #### [facility] ([id number]) [address], [address] [place] [address] MCHC (RBC) [Mass/Vol] 33.1 g/dL Normal 32-[address] [facility] Comment on above: Performed By: #### C BCA, CMP, 1987-12, FEPR, 2276-4, 2284-8, 10404-9, 2132-9, 87910-9, 60841-7, 5130-0, 88137-3, 12552-8, 05592-6, 3357-1, 8092-9, 88106-8, 44662-7, 59511-0, 90971-7, 42368-8 #### [facility] ([id number]) [address], [address] [place] [address] MCV (RBC) [Entitic vol] 86 fL Normal 80-100 [facility] Comment on above: Performed By: #### C BCA, CMP, 1987-12, FEPR, 6-4, 2284-8, 56592-6, 2132-9, 22265-6, 89169-9, 5130-0, 84729-6, 39703-7, 71500-7, 3357-1, 8092-9, 05985-6, 41118-0, 31306-8, 39768-9, 24871-1 #### [facility] ([id number]) [address], [address] [place] [address] Monocytes (Bld) [#/Vol] 1.0 10*3/uL High 0-0.9 [facility] Comment on above: Performed By: #### C BCA, CMP, 1987-12, FEPR, 2276-4, 2284-8, 90267-0, 2132-9, 89160-9, 26974-4, 5130-0, 77056-0, 11596-4, 34972-1, 3357-1, 8092-9, 13849-3, 02808-7, 68400-3, 50549-3, 88782-8 #### [facility] ([id number]) [address] [facility], [address] [place] [address] Monocytes/100 WBC (Bld) 9.0 % Normal [facility] Comment on above: Performed By: #### C SHARATH, CMP, 1987-12, FEPR, 2276-4, 2284-8, 84157-3, 2132-9, 50245-3, 38445-0, 5130-0, 17996-8, 65961-9, 81769-1, 3357-1, 8092-9, 96469-6, 30477-7, 73277-0, 89174-6, 72437-0 #### [facility] ([id number]) [address] [facility], [address] [place] [address] Neutrophils/100 WBC (Bld) 67.6 % Normal [facility] Comment on above: Performed By: #### C SHARATH, CMP, 1987-12, FEPR, 2276-4, 2284-8, 35798-1, 2132-9, 09763-2, 73846-0, 5130-0, 58765-4, 65138-2, 78615-7, 3357-1, 8092-9, 46607-9, 58064-9, 17408-3, 64547-9, 63721-2 #### [facility] ([id number]) [address] [facility], [address] [place] [address] Platelet mean volume (Bld) [Entitic vol] 6.4 fL Low 7-12 [facility] Comment on above: Performed By: #### C BCA, CMP, 1987-12, FEPR, 2276-4, 2284-8, 45670-6, 2132-9, 18786-0, 24860-3, 5130-0, 27812-4, 10991-2, 63119-4, 3357-1, 8092-9, 03089-7, 55845-7, 58815-1, 26288-6, 66278-5 #### [facility] ([id number]) [address] [place] [address], [address] [place] [address] Platelets (Bld) [#/Vol] 686 10*3/uL High 150-450 [facility] Comment on above: Performed By: #### C SHARATH, [facility], 1987-12, FEPR, 2276-4, 2284-8, 26640-8, 2132-9, 13283-3, 08918-6, 5130-0, 55871-8, 93177-6, 39952-8, 3357-1, 8092-9, 23454-7, 61293-2, 08025-2, 09085-9, 88721-6 #### [facility] ([id number]) [address] [place] [address] RBC COUNT 2.88 X10E12/L Low 3.80-5.20 [facility] Comment on above: Performed By: #### C BCA, CMP, 1987-12, FEPR, 2276-4, 2284-8, 66149-5, 2132-9, 92853-4, 14140-7, 5130-0, 46378-2, 59100-4, 85850-8, 3357-1, 8092-9, 88688-1, 27943-3, 23328-7, 69070-3, 68185-0 #### [facility] ([id number]) [address] [place] [address], [address] [place] [address] WBC (Bld) [#/Vol] 10.5 10*3/uL Normal 4.0-11.0 [facility] Comment on above: Performed By: #### C BCA, CMP, 1988-5, FEPR, 2276-4, 2284-8, 89520-7, 2132-9, 35726-9, 17881-0, 5130-0, 29919-3, 74680-2, 39333-3, 3357-1, 8092-9, 83011-9, 10570-1, 25613-0, 29808-5, 10757-6 #### [facility] ([id number]) [address] [facility], [address] [place] [address] CBC auto differentialon Basophils (Bld) [#/Vol] 0.1 10*3/uL [facility] Basophils/100 WBC (Bld) 0.8 % [facility] Eosinophils (Bld) [#/Vol] 0.0 10*3/uL [facility] Eosinophils/100 WBC (Bld) 0.0 % [facility] Erythrocyte distribution width (RBC) [Ratio] 14.4 % 11.5 - 15.0 % [facility] Hematocrit (Bld) [Volume fraction] 24.8 % Low 35 - 47 % [facility] Hemoglobin (Bld) [Mass/Vol] 8.2 g/dL Low 11.7 - 15.5 g/dL [facility] Interpretation and review of laboratory results Abnormal [facility] Lymphocytes (Bld) [#/Vol] 2.4 10*3/uL [facility] Lymphocytes/100 WBC (Bld) 22.6 % [facility] MCH (RBC) [Entitic mass] 28.5 pg 27 - 34 pg [facility] MCHC (RBC) [Mass/Vol] 33.1 g/dL 32 - 36 g/dL [facility] MCV (RBC) [Entitic vol] 86 fL 80 - 100 [facility]L [facility] Monocytes (Bld) [#/Vol] 1.0 10*3/uL High [facility] Monocytes/100 WBC (Bld) 9.0 % [facility] Neutrophils (Bld) [#/Vol] 7.1 10*3/uL High [facility] Neutrophils/100 WBC (Bld) 67.6 % [facility] Platelet mean volume (Bld) [Entitic vol] 6.4 fL Low 7 - 12 fL [facility] Platelets (Bld) [#/Vol] 686 10*3/uL High [facility] RBC (Bld) [#/Vol] 2.88 10*6/uL Low [facility] WBC corrected for nucl RBC Auto (Bld) [#/Vol] 10.5 [facility] Clinical Pathology Blood Sme ar Review Clinicalon 09-26-2023 Pathologist review Pathologist comment (Bld) [Interp] NOTE [facility] Comment on above: [facility] [address] [place] [address] Clinical Pathology Report Patient Name:JOSE DAVID:1945 (Age: 78)Gender:FTaken:4Reported:09/26/2023hysician(s):Olga Pan M.D. ([phone])Copy To: Rec. #:[id number]: #[id number] Final Pathologic Diagnosis Peripheral blood smear: Neutrophilic [...] Out hn09/26/2023Og Martinez M.D. Interpretation performed at [facility], [address] [place] [address], License number: [id number]. Clinical History R29.9. BLOOD SMEAR EVALUATION CBC (09/23/2023 0818): WBC = 12.1 X10E9/L; HGB = 9.1 g/dL; HCT = 27.8%; MCV = 85 fL; PLT = 924 X10E9/L OTHER LAB DATA: Noncontributory. BLOOD SMEAR: Leukocytes: Neutrophilic leukocytosis with cytotoxic changes and lymphocytopenia. Erythrocytes: Moderate normocytic normochromic anemia. Platelets: Thrombocytosis. Specimen(s) Received Blood Smear Review Fee Codes(s): 1; 95634 JAK2 V617F mutationon 2023 JAK2 gene p.[id number] Molgen Ql (Bld/Tiss) SEE COMMENTS 09/26/2023 10:21 AM [facility] Comment on above: NOTE Test Result Flag Unit RefValue ----- JAK2 V617F Mutation Detection, B JAK2 Result see interpretation JAK2 V617F Mutation Detection, B See Note Peripheral blood, JAK2 V617F mutation analysis: Negative for JAK2 V617F. A negative [id number] test result does not exclude the possibility [...] assay has been determined at 0.06% (see [facility] Interpretive Handbook for method details). This test was developed and its performance characteristics determined by [facility] in a manner consistent with CLIA requirements. This test has not been cleared or approved by the U.S. Food and Drug Administration. Test Performed by: [facility] - [address] [address] Scutcher Tender: Thierry Duran M.D. Ph.D.; CLIA# [id number] JAK2 gene p.[id number] Molgen Ql (Bld/Tiss)on 09-26-2023 [facility] Pathologist review Pathologi st comment (Bld) [Interp]on 09-26-2023 [facility] Surgical Pathologyon [facility] [address] [place] [address] Surgical Pathology Consultation Patient Name:JOSE DAVID:1945 (Age: 78)Gender:FTaken:4Reported:09/26/2023 Physician(s):Kristel Reid MD ([phone])Copy To: Rec. #:[id number]: #[id number] Final Pathologic Diagnosis 1. Left temporal artery [...] tay/09/26/2023José Luis Pederson MD Interpretation performed at [facility], [address] [place] [address], License number: [id number]. Clinical History Temporal arteries. Gross Description 1. Received in formalin labeled MULUGETA, left temporal artery biopsy is a segment of vasculature, 2 x 0.3 cm. The specimen is sectioned to reveal a pinpoint lumen. Are 3 segments of vasculature ranging from 0.5 cm to 1.2 cm in length by 0.2 cm in diameter. The specimen is submitted entirely in a single cassette. (1,ns,[id number], m1) . 2. Received in formalin labeled MULUGETA, right temporal artery biopsy are 3 segments of vasculature ranging from 0.5 cm to 1.2 cm in length by 0.2 cm in diameter. The segments are sectioned to reveal pinpoint lumens. The specimen are submitted entirely in cassettes A-B. (2,ns,[id number], m1) . /09/25/2023G Specimen(s) Received 1: Left temporal artery biopsy 2: Right temporal artery biopsy Fee Codes(s): 1; 71089, 44161 2; 11631, 15870 [facility] [employer] [facility] BCR/ABL by PCR w/ Reflexon 0 09-25-2023 Narrative diagnostic report [employer] (Bld/Tiss) [Interp] SEE COMMENTS 09/25/2023 04:24 PM [employer] Comment on above: NOTE Test Result Flag Unit RefValue ----- BCR/ABL1 Reflex, Qual/Quant Specimen Type EDTA WHOLE BLOOD BCR/ABL1 Reflex Result see interpretation Interpretation See Note Peripheral blood, BCR/ABL1 mRNA analysis, qualitative: Negative. No BCR/ABL1 mRNA transcripts were detected. Method summary: The presence or absence of BCR/ABL1 mRNA transcripts was evaluated using a qualitative, reverse nuclear waste process operator PCR-based assay. The assay detects nearly all published and theoretical BCR/ABL1 fusion forms including the common e13/e14-a2 (p210) and e1-a2 (p190) transcripts, as well as other rarer variants (e.g. e19-a2 (p230), e13/e14-a3, e1-a3, etc.). The limit of detection for this assay is 0.1%. Please contact the lab at [phone] with questions or if additional testing is required. See [facility] Test Catalog for additional method details. Signing Pathologist: Ammon Titus M.D. (Jane), Ph.D. ADDITIONAL INFORMATION This test was developed and its performance characteristics determined by [facility] in a manner consistent with CLIA requirements. This test has not been cleared or approved by the U.S. Food and Drug Administration. Test Performed by: [facility] [place] [address] Scutcher Tender: Thierry Duran M.D. Ph.D.; CLIA# [id number] Narrative diagnostic report Martha Tidwell (Bld/Tiss) [Interp]on 09-25-2023 [facility] Surgical Pathologyon 024 Surgical Pathology Normal [facility] Comment on above: Result Comment: [facility] [address] [place] [address] Surgical Pathology Consultation ADDENDUM IA Patient Name:JOSE DAVID:1945 (Age: 78)Gender:FTaken:4Reported:09/26/2023hysician(s):Kristel Reid MD ([phone])Copy To: Rec. #:[id number]: #[id number] Final Pathologic Diagnosis 1. Left temporal artery [...] José Luis Pederson MD Interpretation performed at [facility], [address] [place], [place] [address], License number: [id number]. Clinical History Temporal arteries. Gross Description 1. Received in formalin labeled [place], left temporal artery biopsy is a segment of vasculature, 2 x 0.3 cm. The specimen is sectioned to reveal a pinpoint lumen. Are 3 segments of vasculature ranging from 0.5 cm to 1.2 cm in length by 0.2 cm in diameter. The specimen is submitted entirely in a single cassette. (1,ns,[id number], m1) . 2. Received in formalin labeled MUL[place], right temporal artery biopsy are 3 segments of vasculature ranging from 0.5 cm to 1.2 cm in length by 0.2 cm in diameter. The segments are sectioned to reveal pinpoint lumens. The specimen are submitted entirely in cassettes A-B. (2,ns,[id number], m1) . 4RG Specimen(s) Received 1: Left temporal artery biopsy 2: Right temporal artery biopsy Fee Codes(s): 1; 90949, 76785 2; 96302, 21200 dRVVT/dRVVT.excess phospholi pid Coag (PPP) [Ratio]on 09-25-2023 dRVVT excess phospholipid Coag Ql (PPP) Negative [facility] ANCAon 09-24-2023 Neutrophil cytoplasmic Ab IF Ql (S) See Below [facility] Comment on above: NOTE TEST RESULT [...] results and clinical correlation. Test Performed By: [facility] [address] [place] [address] Beer Maker: Meño Hernandez III, M.D. CLIA #[id number]^ BASIC METABOLIC PANLon 09-24 Anion gap [Moles/Vol] 10 mmol/L Normal 5-15 [facility] Comment on above: Performed By: #### C BCA, CMP, 1988-5, FEPR, 2276-4, 2284-8, 78323-8, 2132-9, 79572-5, 42136-5, 5130-0, 27163-9, 02527-7, 91439-4, 3357-1, 8092-9, 48156-5, 32230-2, 96878-4, 61435-2, 83595-7 #### [facility] ([id number]) [address] [place] [address], [address] [place] [address] Calcium [Mass/Vol] 8.5 mg/dL Normal 8.5-10.5 [facility] Comment on above: Performed By: #### C BCA, CMP, 1987-12, FEPR, 2276-4, 2284-8, 26922-9, 2132-9, 12934-0, 21874-3, 5130-0, 69801-1, 45467-8, 35082-1, 3357-1, 8092-9, 21343-6, 53558-6, 10241-8, 16296-1, 28362-4 #### [facility] ([id number]) [address], [address] [place] [address] Chloride [Moles/Vol] 101 mmol/L Normal 98-109 [facility] Comment on above: Performed By: #### C BCA, CMP, 1987-12, FEPR, 2276-4, 2284-8, 95412-0, 2132-9, 62534-3, 47850-7, 5130-0, 12043-5, 73263-8, 27617-0, 3357-1, 8092-9, 99927-0, 67025-4, 13957-7, 81105-2, 56094-6 #### [facility] ([id number]) [address], [address] [place] [address] CO2 [Moles/Vol] 29 mmol/L Normal 22-32 [facility] Comment on above: Performed By: #### C BCA, CMP, 1987-12, FEPR, 227-4, 2284-8, 26738-5, 2132-9, 42304-3, 98340-9, 5130-0, 45773-2, 71997-2, 06616-7, 3357-1, 8092-9, 32859-8, 25228-0, 13205-3, 26975-2, 95948-8 #### [facility] ([id number]) [address], [address] [place] [address] Creatinine [Mass/Vol] 0.61 mg/dL Normal 0.40-1.00 [facility] Comment on above: Result Comment: METH OD TRACEABLE TO IDMS STANDARD Performed By: #### C KELVIN EARLY, 1987-12, FEPR, 2276-4, 2284-8, 06104-2, 2132-9, 61094-4, 95253-8, 5130-0, 80755-8, 88650-5, 97773-9, 3357-1, 8092-9, 40560-9, 83333-9, 47501-3, 25727-1, 03914-0 #### [facility] ([id number]) [address] [place] [address], [address] [place] [address] eGFR (CKD-EPI) NON-RACE DEPENDENT >90 Normal >59 [facility] Comment on above: Result Comment: Reported eGFR is based on the CKD-EPI 2020 equation that does not use a race coefficient. Performed By: #### C SHARATH, KELVIN, 1987-12, FEPR, 2275-4, 2284-8, 36040-3, 2132-9, 65650-6, 38820-1, 5130-0, 21177-1, 72084-4, 30455-9, 3357-1, 8092-9, 94417-9, 71075-2, 59590-3, 87366-4, 63417-4 #### [facility] ([id number]) [address] [place] [address], [address] [place] [address] Glucose [Mass/Vol] 98 mg/dL Normal 65-99 [facility] Comment on above: Performed By: #### C SHARATH, CMP, 1987-12, FEPR, 2276-4, 2284-8, 97648-1, 2132-9, 96019-8, 96075-9, 5130-0, 94021-0, 62959-9, 36175-1, 3357-1, 8092-9, 30378-4, 73137-7, 25841-6, 00205-7, 40375-9 #### [facility] ([id number]) [address], [address] [place] [address] Potassium [Moles/Vol] 3.5 mmol/L Normal 3.5-5.0 [facility] Comment on above: Performed By: #### C BCA, CMP, 1987-12, FEPR, 2276-4, 2284-8, 60943-2, 2132-9, 88105-7, 84534-1, 5130-0, 46686-9, 57112-9, 05851-6, 3357-1, 8092-9, 84673-9, 49364-9, 20432-8, 80815-8, 80661-9 #### [facility] ([id number]) [address], [address] [place] [address] Sodium [Moles/Vol] 140 mmol/L Normal 134-146 [facility] Comment on above: Performed By: #### C BCA, CMP, 1987-12, FEPR, 2275-4, 2284-8, 65468-3, 2132-9, 99641-6, 32159-9, 5130-0, 43336-1, 46632-8, 61887-5, 3357-1, 8092-9, 90929-2, 83850-6, 51990-1, 42320-4, 89422-6 #### [facility] ([id number]) [address], [address] [place] [address] Urea nitrogen [Mass/Vol] 22 mg/dL Normal 5-27 [facility] Comment on above: Performed By: #### C BCA, CMP, 1987-12, FEPR, 227-4, 2284-8, 39498-0, 2132-9, 91401-7, 98856-7, 5130-0, 93842-2, 19618-7, 75294-0, 3357-1, 8092-9, 78002-9, 43383-4, 60618-4, 81360-1, 82829-8 #### [facility] ([id number]) [address], [address] [place] [address] Basic Metabolic Panelon 08-27 Anion gap [Moles/Vol] 10 mmol/L 5 - 15 mmol/L [facility] Calcium [Mass/Vol] 8.5 mg/dL 8.5 - 10. 5 mg/dL [facility] Chloride [Moles/Vol] 101 mmol/L 98 - 10 9 mmol/L [facility] CO2 [Moles/Vol] 29 mmol/L 22 - 32 mmol/L [facility] Creatinine [Mass/Vol] 0.61 mg/dL 0.40 - 1.00 mg/dL [facility] Comment on above: METHOD TRACEABLE TO [facility] STANDARD eGFR (CKD-EPI)non-race dependent - PINF [facility] Comment on above: Reported eGFR is based on the CKD-EPI 2020 equation that does not use a race coefficient. Glucose [Mass/Vol] 98 mg/dL 65 - 99 mg/dL [facility] Potassium [Moles/Vol] 3.5 mmol/L 3.5 - 5.0 mmol/L [facility] Sodium [Moles/Vol] 140 mmol/L 134 - 146 mmol/L [facility] Urea nitrogen [Mass/Vol] 22 mg/dL 5 - 27 mg/d L [facility] CBC AND AUTO DIFFon 09-24-19 ABSOLUTE BASOPHIL 0.1 X10E9/L Normal 0.0-0.2 [facility] Comment on above: Performed By: #### C BCA, CMP, 1988-5, FEPR, 2276-4, 2284-8, 18553-4, 2132-9, 92741-1, 46217-6, 5130-0, 36516-7, 70347-7, 84820-1, 3357-1, 8092-9, 55044-7, 14016-8, 13522-0, 27397-2, 38844-1 #### [facility] ([id number]) [address], [address] [place] [address] ABSOLUTE NEUTROPHIL 16.3 X10E9/L High 1.5-6.[address] [facility] Comment on above: Performed By: #### C SHARATH, CMP, 1987-12, FEPR, 2276-4, 2284-8, 84602-3, 2132-9, 08904-1, 53181-9, 5130-0, 47224-9, 70948-2, 78233-7, 3357-1, 8092-9, 77344-4, 67157-5, 37549-9, 15409-9, 51161-4 #### [facility] ([id number]) [address], [address] [place] [address] Basophils/100 WBC (Bld) 0.5 % Normal [facility] Comment on above: Performed By: #### C SHARATH, CMP, 1987-12, FEPR, 2275-, 2283-8, 17602-5, 2132-9, 51808-0, 97488-1, 5130-0, 24199-6, 32432-5, 62064-3, 3357-1, 8092-9, 22849-7, 77721-2, 40592-2, 45199-6, 17732-4 #### [facility] ([id number]) [address], [address] [place] [address] Eosinophils (Bld) [#/Vol] 0.0 10*3/uL Normal 0.0-0.4 [facility] Comment on above: Performed By: #### C BCA, CMP, 1987-12, FEPR, 2275-4, 2284-8, 36401-7, 2132-9, 18872-5, 79656-3, 5130-0, 49250-9, 23659-6, 22402-3, 3357-1, 8092-9, 62469-5, 85195-9, 41995-3, 73312-4, 15017-9 #### [facility] ([id number]) [address], [address] [place] [address] Eosinophils/100 WBC (Bld) 0.0 % Normal [facility] Comment on above: Performed By: #### C SHARATH, KELVIN, 1987-12, FEPR, 2276-4, 2284-8, 18249-6, 2132-9, 45477-7, 42444-7, 5130-0, 07675-3, 45025-5, 69728-3, 3357-1, 8092-9, 34447-3, 59253-7, 70345-8, 61775-3, 07452-5 #### [facility] ([id number]) [address], [address] [place] [address] Erythrocyte distribution width (RBC) [Ratio] 14.8 % Normal 11.5-15.0 [facility] Comment on above: Performed By: #### C SHARATH, KELVIN, 1987-12, FEPR, 2275-4, 2284-8, 74390-3, 2132-9, 94414-6, 97953-5, 5130-0, 41139-3, 62062-1, 06469-1, 3357-1, 8092-9, 82215-4, 54954-9, 89558-3, 07382-2, 71181-2 #### [facility] ([id number]) [address], [address] [place] [address] Hematocrit (Bld) [Volume fraction] 25.6 % Low 35-47 [facility] Comment on above: Performed By: #### C SHARATH, CMP, 1987-12, FEPR, 227-4, 2284-8, 68224-5, 2132-9, 87921-8, 68612-7, 5130-0, 89882-8, 34355-1, 38337-2, 3357-1, 8092-9, 05490-7, 32164-8, 17072-8, 23730-8, 93632-6 #### [facility] ([id number]) [address], [address] [place] [address] Hemoglobin (Bld) [Mass/Vol] 8.3 g/dL Low 11.7-15.5 [facility] Comment on above: Performed By: #### C SHARATH, CMP, 1987-12, FEPR, 2276-4, 2284-8, 74723-4, 2132-9, 26782-6, 41229-6, 5130-0, 32690-5, 32370-9, 82184-0, 3357-1, 8092-9, 49741-4, 37860-6, 85816-1, 59935-8, 85496-4 #### [facility] ([id number]) [address], [address] [place] [address] Lymphocytes (Bld) [#/Vol] 1.6 10*3/uL Normal 1.0-3.5 [facility] Comment on above: Performed By: #### C SHARATH, CMP, 1987-12, FEPR, 2275-4, 2284-8, 19605-5, 2132-9, 89575-5, 80885-3, 5130-0, 48758-9, 01442-7, 94006-5, 3357-1, 8092-9, 06187-6, 48406-2, 41659-6, 47066-8, 75330-8 #### [facility] ([id number]) [address] [facility] [facility], [address] [place] [address] Lymphocytes/100 WBC (Bld) 8.3 % Normal [facility] Comment on above: Performed By: #### C BCA, CMP, 1987-12, FEPR, 2276-4, 2284-8, 21273-9, 2132-9, 63697-4, 95646-3, 5130-0, 71506-4, 22281-8, 68268-7, 3357-1, 8092-9, 13692-7, 10741-8, 40370-5, 81936-1, 42021-5 #### [facility] ([id number]) [address], [address] [place] [address] MCH (RBC) [Entitic mass] 27.8 pg Normal 27-34 [facility] Comment on above: Performed By: #### C BCA, CMP, 1987-12, FEPR, 2276-4, 2284-8, 75585-8, 2132-9, 70706-6, 50281-6, 5130-0, 19896-7, 87595-3, 19493-2, 3357-1, 8092-9, 60984-4, 39916-1, 24416-5, 50592-7, 82616-8 #### [facility] ([id number]) [address], [address] [place] [address] MCHC (RBC) [Mass/Vol] 32.5 g/dL Normal 32-36 [facility] Comment on above: Performed By: #### C BCA, CMP, 1987-12, FEPR, 2276-4, 2284-8, 09002-9, 2132-9, 61660-5, 14119-0, 5130-0, 05300-8, 71580-8, 30955-4, 3357-1, 8092-9, 15100-1, 88754-7, 33670-2, 39556-9, 33106-9 #### [facility] ([id number]) [address], [address] [place] [address] MCV (RBC) [Entitic vol] 85 fL Normal 80-100 [facility] Comment on above: Performed By: #### C BCA, CMP, 1987-12, FEPR, 2276-4, 2284-8, 00848-4, 2132-9, 63715-2, 15158-8, 5130-0, 63870-8, 84951-1, 97718-6, 3357-1, 8092-9, 47258-2, 33216-7, 41259-3, 04945-3, 35008-0 #### [facility] ([id number]) [address], [address] [place] [address] Monocytes (Bld) [#/Vol] 1.0 10*3/uL High 0-0.9 [facility] Comment on above: Performed By: #### C BCA, CMP, 1987-12, FEPR, 2276-4, 2284-8, 87156-9, 2132-9, 55365-7, 73718-6, 5130-0, 37210-4, 28229-8, 75012-8, 3357-1, 8092-9, 22067-8, 25941-6, 97289-4, 40428-0, 39835-8 #### [facility] ([id number]) [address], [address] [place] [address] Monocytes/100 WBC (Bld) 5.0 % Normal [facility] Comment on above: Performed By: #### C BCA, CMP, 1987-12, FEPR, 227-4, 2284-8, 00395-5, 2132-9, 28265-3, 05759-2, 5130-0, 38057-3, 92920-7, 32143-5, 3357-1, 8092-9, 76232-3, 57708-7, 48225-6, 38461-7, 90499-8 #### [facility] ([id number]) [address], [address] [place] [address] Neutrophils/100 WBC (Bld) 86.2 % Normal [facility] Comment on above: Performed By: #### C BCA, CMP, 1987-12, FEPR, 2276-4, 2284-8, 26489-8, 2132-9, 98104-9, 58298-6, 5130-0, 47956-1, 65477-0, 84370-6, 3357-1, 8092-9, 24833-1, 10351-6, 99210-2, 59242-2, 13797-6 #### [facility] ([id number]) [address], [address] [place] [address] Platelet mean volume (Bld) [Entitic vol] 6.5 fL Low 7-12 [facility] Comment on above: Performed By: #### C SHARATH, CMP, 1987-12, FEPR, 227-4, 228-8, 73761-9, 2131-9, 66661-2, 32511-8, 5130-0, 03736-6, 93360-3, 43570-3, 3357-1, 8092-9, 63955-0, 18168-5, 05357-6, 47137-3, 72196-4 #### [facility] ([id number]) [address], [address] [place] [address] Platelets (Bld) [#/Vol] 902 10*3/uL High 150-450 [facility] Comment on above: Performed By: #### C SHARATH, CMP, 1987-12, FEPR, 2275-, 2283-8, 45300-1, 2131-9, 79115-7, 67572-9, 5130-0, 55238-3, 13664-1, 96009-3, 3357-1, 8092-9, 40335-0, 90371-0, 89392-2, 91910-4, 97194-4 #### [facility] ([id number]) [address], [address] [place] [address] RBC COUNT 3.00 X10E12/L Low 3.80-5.20 [facility] Comment on above: Performed By: #### C SHARATH, CMP, 1987-12, FEPR, 2276-4, 2284-8, 89172-4, 2132-9, 66081-2, 18303-5, 5130-0, 11132-4, 25221-9, 65846-9, 3357-1, 8092-9, 87489-7, 78255-9, 94481-6, 77934-4, 01987-2 #### [facility] ([id number]) [address] [place] [address], [address] [place] [address] WBC (Bld) [#/Vol] 18.9 10*3/uL High 4.0-11.0 [facility] Comment on above: Performed By: #### C BCA, CMP, 1987-, FEPR, 2276-4, 2284-8, 06396-3, 2132-9, 79905-4, 83323-2, 5130-0, 09113-8, 07852-7, 37610-8, 3357-1, 8092-9, 84314-2, 56559-2, 96830-6, 54110-7, 38519-9 #### [facility] ([id number]) [address] [place] [address], [address] [place] [address] CBC auto differentialon 08-27 Basophils (Bld) [#/Vol] 0.1 10*3/uL [facility] Basophils/100 WBC (Bld) 0.5 % [facility] Eosinophils (Bld) [#/Vol] 0.0 10*3/uL [facility] Eosinophils/100 WBC (Bld) 0.0 % [facility] Erythrocyte distribution width (RBC) [Ratio] 14.8 % 11.5 - 15.0 % [facility] Hematocrit (Bld) [Volume fraction] 25.6 % Low 35 - 47 % [facility] Hemoglobin (Bld) [Mass/Vol] 8.3 g/dL Low 11.7 - 15.5 g/dL [facility] Interpretation and review of laboratory results Abnormal [facility] Lymphocytes (Bld) [#/Vol] 1.6 10*3/uL [facility] Lymphocytes/100 WBC (Bld) 8.3 % [facility] MCH (RBC) [Entitic mass] 27.8 pg 27 - 34 pg [facility] MCHC (RBC) [Mass/Vol] 32.5 g/dL 32 - 36 g/dL [facility] MCV (RBC) [Entitic vol] 85 fL 80 - 100 fL [facility] Monocytes (Bld) [#/Vol] 1.0 10*3/uL High [facility] Monocytes/100 WBC (Bld) 5.0 % P [facility] Neutrophils (Bld) [#/Vol] 16.3 10*3/uL High [facility] Neutrophils/100 WBC (Bld) 86.2 % [facility] Platelet mean volume (Bld) [Entitic vol] 6.5 fL Low 7 - 12 fL [facility] Platelets (Bld) [#/Vol] 902 10*3/uL High [facility] RBC (Bld) [#/Vol] 3.00 10*6/uL Low [facility] WBC corrected for nucl RBC Auto (Bld) [#/Vol] 18.[address] [facility] Cardiac echo study Procedure Ordered By: Nacho Grant on 09-24-2023 Aortic root 2.80 cm [facility] [employer] Work Phone: AV mean gradient 6.00 mmHg [facility] [employer] Work Phone: AV peak gradient 8.64 mmHg [facility] [employer] Work Phone: AV peak kym 147.00 cm/s [facility] [employer] Work Phone: AV valve area 1.95 cm2 [facility] [employer] Work Phone: AV Velocity Ratio 0.77 [facility] [employer] Work Phone: AV VTI 33.60 cm [facility] [employer] Work Phone: E wave deceleration time 187.00 msec [facility] Work Phone: E/A ratio 0.72 [facility] Work Phone: Echo EF Estimated 63 % [facility] Work Phone: EF 63 % [facility] Work Phone: Energy loss index 1.88 [employer] Work Phone: 1 0 FS 33 % 28 - 44 % [employer] Work Phone: 1 0 Interventricular Septum Diastolic Thickness by 2D 10 cm [employer] Work Phone: 1 0 IVS 1.00 cm 0.6 - 1.1 cm [employer] Work Phone: 1 0 LA size 3.60 cm [employer] Work Phone: 1 0 LA volume 48.00 cm3 [employer] Work Phone: 1 0 LA Volume Index 31.8 mL/m2 [employer] Work Phone: [phone] Left Ventricle Mass 122.687424501185976 g [employer] Work Phone: [phone] LV Diastolic Volume 71.20 mL [facility] Work Phone: 1 0 LV ESV A2C 56.30 mL [employer] Work Phone: [phone] LV ESV A4C 33.20 mL [employer] Work Phone: 1 0 LV RWT 2D 51.28 [employer] Work Phone: [phone] LV Systolic Volume 26.00 mL [employer] Work Phone: [phone] LVIDd 3.90 cm 3.78 - 5.25 cm [employer] Work Phone: [phone] LVIDs 2.60 cm 2.25 - 3.40 cm [employer] Work Phone: [phone] LVOT diameter 1.80 cm [employer] Work Phone: [phone] LVOT peak kym 1.37 m/s [employer] Work Phone: [phone] LVOT peak VTI 25.80 cm [employer] Work Phone: [phone] LVOT stroke volume 65.65 ml [employer] Work Phone: [phone] MV Peak A Kym 99.40 cm/s [employer] Work Phone: MV Peak E Kym 71.30 cm/s [employer] Work Phone: MV pressure 1/2 time 55.00 ms [facility] Work Phone: [phone] MV TDI E' (medial) 6.85 cm/s [facility] Work Phone: MV valve area p 1/2 method 4.00 cm2 [facility] [employer] [place] Work Phone: PV peak gradient 4.16 mmHg [facility] Work Phone: PW 1.00 cm 0.6 - 1.1 cm [facility] [employer] [place] Work Phone: RV diastolic dimension (basal) 29.0 mm [facility] [employer] [place] Work Phone: TAPSE 1.88 cm [employer] Work Phone: TDI 9.68 cm/s [facility] [employer] Work Phone: Valve area - Index 1.3 [facility] Work Phone: ZLVIDD -1.32 [employer] Work Phone: ZLVIDS -0.48 [employer] Work Phone: [employer] Work Phone: Cardiac echo study Procedure on [...] for comparison. [facility] Radiology Study observation (narrative) [facility] MR BRAIN W WO CONTon [...] of the major arterial structures in the [place]. The paranasal sinuses are clear. [...] Jewell MD on 09/24/2023 4:24 AM Normal [facility] MR Brain WO and W contrast [...] of the major arterial structures in the [place]. The paranasal sinuses are clear. [...] of the major arterial structures in the [place]. The paranasal sinuses are clear. [...] Gilbert Jewell MD on 09/24/2023 4:24 AM [facility] Radiology Study observation (narrative) [facility] MR ORBIT W WO CONTon [...] of the major arterial structures in the [place]. The paranasal sinuses are clear. [...] Jewell MD on 09/24/2023 4:25 AM Normal [facility] MR Orbit WO and W [...] of the major arterial structures in the [place]. The paranasal sinuses are clear. [...] of the major arterial structures in the [place]. The paranasal sinuses are clear. [...] Gilbert Jewell MD on 09/24/2023 4:25 AM [facility] [employer] [place] Radiology Study observation (narrative) [facility] MR Orbit WO and W contrast I VOrdered By: Gilbert Jewell on 09-24-2023 [facility] [employer] [place] Work Phone: Neutrophil cytoplasmic Ab IF Ql (S)on 09-24-2023 [facility] Reticulocyteson 09-24-2023 Reticulocytes/100 RBC (Bld) 2.3 % High 0.4 - 2.2 % [facility] Reticulocytes/100 RBC (Bld)o n 09-24-2023 Interpretation and review of laboratory results Abnormal [facility] RETICULOCYTE COUNT 2.3 % High 0.4-2.2 [facility] Comment on above: Performed By: #### C SHARATH, CMP, 1987-12, FEPR, 2276-4, 2284-8, 56448-6, 2132-9, 44221-5, 75524-7, 5130-0, 99576-3, 87466-8, 18361-0, 3357-1, 8092-9, 65952-5, 06119-1, 36665-9, 71143-2, 85345-1 #### [facility] ([id number]) [address] [place] [address], [address] [place] [address] ACUTE HEPATITIS PANELon 08-27 ANTI HCV W/PCR REFLX Non-Reactive Normal NRCT Pr [facility] Comment on above: Result Comment: If recent infection suspected, recommend repeat testing (>2 months). Pahhcr-wc-bbgnvn ratio is <0.80. Performed By: #### C SHARATH, KELVIN, 1986-12, FEPR, 2275-4, 2284-8, 74797-6, 2132-9, 70600-0, 76017-6, 5130-0, 61630-5, 78971-6, 45414-5, 3357-1, 8092-9, 20236-0, 63995-8, 74245-9, 07264-8, 59741-1 #### [facility] ([id number]) [address] [place] [address], [address] [place] [address] HEPATITIS A IGM Non-Reactive Normal [facility] Comment on above: Performed By: #### C SHARATH, CMP, 1987-12, FEPR, 2276-4, 2284-8, 91039-8, 2132-9, 06998-1, 70652-1, 5130-0, 40639-5, 70049-4, 13575-7, 3357-1, 8092-9, 66102-8, 40395-9, 22537-6, 04244-6, 43050-9 #### [facility] ([id number]) [address] [place] [address], [address] [place] [address] HEPATITIS B CORE IGM Negative Normal NEG [facility] Comment on above: Performed By: #### C BCA, CMP, 1987-12, FEPR, 2276-4, 2284-8, 24359-5, 2132-9, 76153-2, 17365-8, 5130-0, 17741-0, 93948-5, 19950-0, 3357-1, 8092-9, 11493-9, 59472-5, 93436-9, 33690-1, 12958-2 #### [facility] ([id number]) [address] [place] [address], [address] [place] [address] HEPATITIS B SURF AG Negative Normal NEG [facility] Comment on above: Performed By: #### C BCA, CMP, 1987-12, FEPR, 2276-4, 2284-8, 09741-2, 2132-9, 79662-0, 41095-0, 5130-0, 00692-9, 86244-2, 70818-4, 3357-1, 8092-9, 98020-3, 84032-0, 05119-3, 18376-5, 53633-7 #### [facility] ([id number]) [address] [place] [address], [address] [place] [address] SILVIA Screen w/ Reflexon 09-23 Nuclear Ab IA Ql (S) Positive Abnormal Negativ [facility] on above: Testing performed using multiplex flow immunoassay. Eleven different antigens associated with systemic autoimmune diseases (dsDNA,Sm,Sm/CHICKEN STUFFER,CHICKEN STUFFER,Chromatin, SSA,SSB,Tiki-1,Scl70,Ribo P,Centromere B) are included in this screening test. ANTI CARDIOLIPIN AB IGG IGA IGMon 09-23-2023 MIRIAM IgA <2.0 Normal 0-19.9 [facility] Comment on above: Performed By: #### C BCA, CMP, 1987-12, FEPR, 2276-4, 2284-8, 84395-8, 2132-9, 15161-5, 39476-5, 5130-0, 27390-0, 00408-7, 04591-6, 3357-1, 8092-9, 96354-4, 62880-6, 46967-0, 77137-3, 12650-6 #### [facility] ([id number]) [address] [place] [address], [address] [place] [address] MIRIAM IgG <1.6 Normal 0-19.9 [facility] Comment on above: Performed By: #### C BCA, CMP, 1987-12, FEPR, 227-4, 2284-8, 29486-3, 2132-9, 83597-4, 73705-2, 5130-0, 22907-3, 23921-1, 58386-0, 3357-1, 8092-9, 14185-6, 19957-0, 75060-2, 96028-0, 57604-8 #### [facility] ([id number]) [address] [place] [address], [address] [place] [address] MIRIAM IgM <1.5 Normal 0-19.9 [facility] Comment on above: Performed By: #### C BCA, CMP, 1987-12, FEPR, 2276-4, 2284-8, 31442-1, 2132-9, 74696-6, 30503-9, 5130-0, 59698-9, 63193-5, 15411-6, 3357-1, 8092-9, 02606-6, 16891-9, 51999-5, 71032-7, 40909-4 #### [facility] ([id number]) [address] [facility], [address] [place] [address] Anileridine Ql (U)on 024 JO1 ANTIBODY <0.2 Normal <1.0 [facility] Comment on above: Performed By: #### C BCA, CMP, 1988-5, FEPR, 2276-4, 2284-8, 63895-0, 2132-9, 81799-6, 80696-8, 5130-0, 15643-1, 03256-2, 25161-7, 3357-1, 8092-9, 62901-5, 12367-0, 29780-9, 61491-3, 67064-2 #### [facility] ([id number]) [address] [facility], [address] [place] [address] Anti cardiolipin AB IgG IgA IgMon 09-23-2023 Cardiolipin IgA IA Qn (S) [facility] Cardiolipin IgG IA Qn (S) [facility] Cardiolipin IgM IA Qn (S) [facility] Anti-Chromatin IGGon 024 Chromatin Ab Ql 0.4 [facility] Comment on above: CLIA ID [id number] Anti-DNA antibody, double-st randedon 09-23-2023 DNA double strand Ab Qn (S) 1 [IU]/mL [facility] Comment on above: Interpretation-------- <5 Negative 5-9 Indeterminate >9 Positive CLIA ID [id number] Anti-Ribosomal P AB IGGon Ribosomal P IgG Qn (S) [facility] Comment on above: CLIA ID [id number] Anti-Mejia AB IGGon 09-23-19 24 Mejia extractable nuclear IgG Qn (S) [facility] Comment on above: CLIA ID [id number] BETA-2 GP1 AB PANELon 2023 BETA-2 GP1 IgA <2.0 Normal 0.0-19.9 [facility] Comment on above: Performed By: #### C BCA, CMP, 1987-12, FEPR, 2276-4, 2284-8, 72051-4, 2132-9, 49363-7, 02219-0, 5130-0, 73620-1, 49089-8, 48170-1, 3357-1, 8092-9, 26465-3, 84597-4, 95052-9, 75081-4, 80536-0 #### [facility] ([id number]) [address] [facility], [address] [place] [address] BETA-2 GP1 IgG <1.4 Normal 0.0-19.9 [facility] Comment on above: Performed By: #### C BCA, CMP, 1987-12, FEPR, 227-4, 2284-8, 31214-1, 2132-9, 95493-2, 31074-9, 5130-0, 00183-0, 37180-6, 07765-3, 3357-1, 8092-9, 08634-5, 35976-6, 40093-2, 27265-3, 67277-6 #### [facility] ([id number]) [address] [facility], [address] [place] [address] BETA-2 GP1 IgM 4.1 u/mL Normal 0.0-19.9 [facility] Comment on above: Performed By: #### C BCA, CMP, 1987-12, FEPR, 2276-4, 2284-8, 30306-6, 2132-9, 26005-7, 19663-3, 5130-0, 35942-6, 92713-7, 85926-7, 3357-1, 8092-9, 21799-3, 61843-8, 38646-0, 64606-2, 57889-7 #### [facility] ([id number]) [address] [facility], [address] [place] [address] Beta-2 glycoprotein antibodi eson 09-23-2023 Beta 2 glycoprotein 1 IgA IA Qn u/mL 0.0 - 19.9 u/mL [facility] Beta 2 glycoprotein 1 IgG IA Qn u/mL 0.0 - 19.9 u/mL [facility] Beta 2 glycoprotein 1 IgM IA Qn 4.1 u/mL 0.0 - 19.9 u/mL [facility] C-reactive proteinon 024 CRP [Mass/Vol] 13.3 mg/dL High 0.000 - 0.744 mg/dL [facility] CBC AND AUTO DIFFon 09-23-19 24 ABSOLUTE BASOPHIL 0.0 X10E9/L Normal 0.0-0.2 [facility] Comment on above: Performed By: #### C SHARATH, CMP, 1987-12, FEPR, 2276-4, 2284-8, 63164-8, 2132-9, 11305-0, 13070-2, 5130-0, 55569-5, 17550-5, 32396-5, 3357-1, 8092-9, 22265-6, 32944-1, 13106-8, 64659-3, 51369-4 #### [facility] ([id number]) [address] [facility], [address] [place] [address] ABSOLUTE NEUTROPHIL 11.5 X10E9/L High 1.5-6.6 [facility] Comment on above: Performed By: #### C BCA, CMP, 1987-12, FEPR, 2276-4, 2284-8, 16940-9, 213-9, 34455-4, 25748-7, 5130-0, 41964-5, 97452-1, 32039-7, 3357-1, 8092-9, 99118-7, 52100-8, 18493-3, 56124-9, 01420-5 #### [facility] ([id number]) [address], [address] [place] [address] Basophils/100 WBC (Bld) 0.2 % Normal [facility] Comment on above: Performed By: #### C BCA, CMP, 1987-12, FEPR, 2276-4, 2284-8, 76567-0, 2132-9, 63878-9, 46325-7, 5130-0, 24282-4, 78087-7, 23416-8, 3357-1, 8092-9, 87197-8, 50654-4, 70921-6, 49131-5, 13585-5 #### [facility] ([id number]) [address] [facility], [address] [place] [address] Eosinophils (Bld) [#/Vol] 0.0 10*3/uL Normal 0.0-0.4 [facility] Comment on above: Performed By: #### C BCA, CMP, 1987-12, FEPR, 2275-4, 2284-8, 94590-0, 2132-9, 35377-9, 43934-0, 5130-0, 03430-8, 71462-4, 34978-2, 3357-1, 8092-9, 21845-7, 15084-7, 98749-4, 35504-8, 69278-8 #### [facility] ([id number]) [address], [address] [place] [address] Eosinophils/100 WBC (Bld) 0.0 % Normal [facility] Comment on above: Performed By: #### C BCA, CMP, 1987-12, FEPR, 227-4, 2284-8, 58666-2, 2132-9, 51900-4, 29409-4, 5130-0, 94242-1, 28398-6, 42212-5, 3357-1, 8092-9, 68853-3, 20406-8, 13399-9, 66420-4, 34257-8 #### [facility] ([id number]) [address], [address] [place] [address] Erythrocyte distribution width (RBC) [Ratio] 14.4 % Normal 11.5-15.0 [facility] Comment on above: Performed By: #### C SHARATH, CMP, 1987-12, FEPR, 2276-4, 2284-8, 36120-7, 2132-9, 98631-4, 35088-6, 5130-0, 18271-1, 97104-0, 16630-7, 3357-1, 8092-9, 98117-0, 24873-5, 38227-6, 10814-0, 97165-0 #### [facility] ([id number]) [address], [address] [place] [address] Hematocrit (Bld) [Volume fraction] 27.8 % Low 35-47 [facility] Comment on above: Performed By: #### C SHARATH, KELVIN, 1987-12, FEPR, 2276-4, 2284-8, 59765-8, 2132-9, 39346-7, 28235-4, 5130-0, 10831-0, 05139-8, 17508-0, 3357-1, 8092-9, 71556-7, 89491-3, 61083-9, 26880-1, 00836-9 #### [facility] ([id number]) [address], [address] [place] [address] Hemoglobin (Bld) [Mass/Vol] 9.1 g/dL Low 11.7-15.5 [facility] Comment on above: Performed By: #### C SHARATH, CMP, 1987-12, FEPR, 2276-4, 2284-8, 03011-3, 2132-9, 19012-8, 00340-8, 5130-0, 68216-8, 87599-9, 75871-6, 3357-1, 8092-9, 28589-8, 89001-1, 93546-8, 09652-5, 88742-7 #### [facility] ([id number]) [address], [address] [place] [address] Lymphocytes (Bld) [#/Vol] 0.4 10*3/uL Low 1.0-3.5 [facility] Comment on above: Performed By: #### C BCA, CMP, 1987-12, FEPR, 2276-4, 2284-8, 23441-5, 2132-9, 33275-4, 41384-6, 5130-0, 47247-0, 45771-7, 52891-7, 3357-1, 8092-9, 16152-4, 08589-6, 80784-3, 97908-7, 79077-6 #### [facility] ([id number]) [address], [address] [place] [address] Lymphocytes/100 WBC (Bld) 3.3 % Normal [facility] Comment on above: Performed By: #### C BCA, CMP, 1987-12, FEPR, 2275-4, 2284-8, 70176-9, 2132-9, 13314-5, 02704-2, 5130-0, 89631-9, 85899-5, 86908-1, 3357-1, 8092-9, 49728-7, 79362-9, 37555-6, 93699-3, 47084-0 #### [facility] ([id number]) [address], [address] [place] [address] MCH (RBC) [Entitic mass] 27.8 pg Normal 27-34 [facility] Comment on above: Performed By: #### C BCA, CMP, 1987-12, FEPR, 2276-4, 2284-8, 56829-5, 2132-9, 87182-9, 80669-2, 5130-0, 46588-2, 87404-2, 64237-4, 3357-1, 8092-9, 55548-3, 11013-0, 87981-4, 08079-6, 09087-0 #### [facility] ([id number]) [address], [address] [place] [address] MCHC (RBC) [Mass/Vol] 32.7 g/dL Normal 32-[address] [facility] Comment on above: Performed By: #### C BCA, CMP, 1987-12, FEPR, 2276-4, 2284-8, 34678-7, 2132-9, 82920-8, 63372-1, 5130-0, 73303-5, 52151-7, 54488-7, 3357-1, 8092-9, 84763-2, 57004-6, 57876-2, 64688-0, 49409-3 #### [facility] ([id number]) [address], [address] [place] [address] MCV (RBC) [Entitic vol] 85 fL Normal 80-100 [facility] Comment on above: Performed By: #### C BCA, CMP, 1987-12, FEPR, 2275-4, 2284-8, 35246-1, 2132-9, 59299-0, 32414-9, 5130-0, 54574-2, 23257-3, 59886-1, 3357-1, 8092-9, 33904-1, 91294-8, 73877-4, 23964-5, 21081-2 #### [facility] ([id number]) [address], [address] [place] [address] Monocytes (Bld) [#/Vol] 0.1 10*3/uL Normal 0-0.9 [facility] Comment on above: Performed By: #### C BCA, CMP, 1987-12, FEPR, 2276-4, 2284-8, 10454-6, 2132-9, 06078-5, 26743-4, 5130-0, 97117-3, 79378-1, 92538-6, 3357-1, 8092-9, 40186-5, 44976-3, 46745-0, 50359-0, 90996-6 #### [facility] ([id number]) [address], [address] [place] [address] Monocytes/100 WBC (Bld) 1.0 % Normal P [facility] Comment on above: Performed By: #### C BCA, CMP, 1987-12, FEPR, 2276-4, 2284-8, 57616-5, 2132-9, 52311-2, 56980-2, 5130-0, 72387-8, 52558-1, 38239-4, 3357-1, 8092-9, 13868-8, 40602-6, 37064-7, 57514-2, 53888-9 #### [facility] ([id number]) [address], [address] [place] [address] Neutrophils/100 WBC (Bld) 95.5 % Normal [facility] Comment on above: Performed By: #### C BCA, CMP, 1987-12, FEPR, 2275-4, 2283-8, 88873-2, 2132-9, 51645-0, 12825-2, 5130-0, 94630-1, 34840-4, 65636-2, 3357-1, 8092-9, 44786-0, 17022-4, 82516-0, 85303-3, 10790-6 #### [facility] ([id number]) [address], [address] [place] [address] Platelet mean volume (Bld) [Entitic vol] 6.2 fL Low 7-12 [facility] Comment on above: Performed By: #### C BCA, CMP, 1987-12, FEPR, 227-4, 2284-8, 55206-9, 2132-9, 65488-7, 19910-6, 5130-0, 46477-7, 96860-7, 83386-5, 3357-1, 8092-9, 53101-0, 60899-8, 79430-2, 90824-7, 84986-1 #### [facility] ([id number]) [address] [facility], [address] [place] [address] Platelets (Bld) [#/Vol] 924 10*3/uL High 150-450 [facility] Comment on above: Performed By: #### C SHARATH, CMP, 1987-12, FEPR, 2276-4, 2284-8, 60912-8, 2132-9, 32874-3, 37721-8, 5130-0, 25584-2, 07271-4, 40762-9, 3357-1, 8092-9, 93861-1, 93895-4, 66476-4, 63088-6, 25065-8 #### [facility] ([id number]) [address] [facility], [address] [place] [address] RBC COUNT 3.27 X10E12/L Low 3.80-5.20 [facility] Comment on above: Performed By: #### C SHARATH, CMP, 1987-12, FEPR, 2276-4, 2284-8, 64457-3, 2132-9, 38428-4, 82729-5, 5130-0, 58867-8, 57626-3, 53909-9, 3357-1, 8092-9, 84280-9, 92326-2, 68048-0, 29721-4, 54471-3 #### [facility] ([id number]) [address] [facility], [address] [place] [address] WBC (Bld) [#/Vol] 12.1 10*3/uL High 4.0-11.0 [facility] Comment on above: Performed By: #### C BCA, CMP, 1987-12, FEPR, 2276-4, 2284-8, 05066-2, 2132-9, 70402-1, 78318-5, 5130-0, 85136-5, 12511-3, 41761-6, 3357-1, 8092-9, 09819-3, 88779-8, 68590-9, 28274-6, 80843-4 #### [facility] ([id number]) [address], [address] [place] [address] ABSOLUTE BASOPHIL 0.2 X10E9/L Normal 0.0-0.2 [facility] Comment on above: Performed By: #### C BCA, CMP, 1987-12, FEPR, 6-4, 2284-8, 67349-5, 2132-9, 91657-4, 45404-1, 5130-0, 73901-9, 13036-7, 47022-9, 3357-1, 8092-9, 56220-6, 72063-2, 33865-0, 53159-4, 56790-0 #### [facility] ([id number]) [address], [address] [place] [address] ABSOLUTE NEUTROPHIL 10.4 X10E9/L High 1.5-6.[address] [facility] Comment on above: Performed By: #### C BCA, CMP, 1987-12, FEPR, 2275-4, 4-8, 31314-8, 2131-9, 99074-1, 25087-7, 5130-0, 54292-6, 81875-0, 11696-0, 3357-1, 8092-9, 55098-4, 23908-2, 99987-6, 03759-7, 32394-2 #### [facility] ([id number]) [address], [address] [place] [address] Basophils/100 WBC (Bld) 2.1 % Normal P [facility] Comment on above: Performed By: #### C BCA, CMP, 1987-12, FEPR, 2275-4, 2284-8, 92830-4, 2132-9, 15913-9, 98388-8, 5130-0, 24734-9, 38765-6, 67876-1, 3357-1, 8092-9, 24265-9, 62151-5, 96018-9, 74146-7, 70623-4 #### [facility] ([id number]) [address] [place] [address], [address] [place] [address] Eosinophils (Bld) [#/Vol] 0.0 10*3/uL Normal 0.0-0.4 [facility] Comment on above: Performed By: #### C KELVIN EARLY, 1987-12, FEPR, 2276-4, 2284-8, 22787-3, 2132-9, 32848-6, 92053-6, 5130-0, 26188-8, 14172-6, 78218-3, 3357-1, 8092-9, 15993-6, 60432-9, 79178-0, 87011-5, 12811-9 #### [facility] ([id number]) [address] [place] [address], [address] [address] Eosinophils/100 WBC (Bld) 0.0 % Normal [facility] Comment on above: Performed By: #### C KELVIN EARLY, 1987-12, FEPR, 2276-4, 2284-8, 14939-1, 2132-9, 36453-6, 61621-5, 5130-0, 32775-2, 33879-4, 92270-4, 3357-1, 8092-9, 73857-0, 47270-1, 50153-7, 94448-9, 38944-6 #### [facility] ([id number]) [address] [place] [address], [address] [place] [address] Erythrocyte distribution width (RBC) [Ratio] 14.6 % Normal 11.5-15.0 [facility] Comment on above: Performed By: #### C KELVIN EARLY, 1987-12, FEPR, 2276-4, 2284-8, 19678-6, 2132-9, 85022-8, 62386-8, 5130-0, 61450-5, 59529-3, 27206-2, 3357-1, 8092-9, 90673-2, 58948-4, 40947-8, 13629-3, 05733-1 #### [facility] ([id number]) [address] [place] [address], [address] [place] [address] Hematocrit (Bld) [Volume fraction] 26.2 % Low 35-47 [facility] Comment on above: Performed By: #### C SHARATH, [facility], 1987-12, FEPR, 2276-4, 2284-8, 70134-7, 2132-9, 75056-3, 08112-4, 5130-0, 60369-6, 83909-9, 38888-2, 3357-1, 8092-9, 01129-3, 06367-5, 05941-3, 06170-2, 85559-7 #### [facility] ([id number]) [address] [place] [address], [address] [place] [address] Hemoglobin (Bld) [Mass/Vol] 8.6 g/dL Low 11.7-15.5 [facility] Comment on above: Performed By: #### C SHARATH, [facility], 1987-12, FEPR, 2276-4, 2284-8, 10624-8, 2132-9, 99805-2, 03280-2, 5130-0, 36945-4, 57828-8, 61544-5, 3357-1, 8092-9, 39895-0, 78205-9, 10852-7, 60651-1, 60050-5 #### [facility] ([id number]) [address] [place] [address], [address] [place] [address] Lymphocytes (Bld) [#/Vol] 0.4 10*3/uL Low 1.0-3.5 [facility] Comment on above: Performed By: #### C SHARATH, CMP, 1987-12, FEPR, 2276-4, 2284-8, 59017-6, 2132-9, 92881-3, 09696-4, 5130-0, 03245-3, 19171-3, 92561-7, 3357-1, 8092-9, 37437-8, 98392-2, 20666-8, 97240-5, 45581-1 #### [facility] ([id number]) [address], [address] [place] [address] Lymphocytes/100 WBC (Bld) 3.6 % Normal [facility] Comment on above: Performed By: #### C SHARATH, CMP, 1987-12, FEPR, 2276-4, 2284-8, 34136-1, 2132-9, 54369-6, 39771-0, 5130-0, 67365-9, 66007-4, 98274-5, 3357-1, 8092-9, 27888-7, 75145-0, 74306-8, 93420-7, 28790-6 #### [facility] ([id number]) [address], [address] [place] [address] MCH (RBC) [Entitic mass] 28.1 pg Normal 27-34 [facility] Comment on above: Performed By: #### C SHARATH, CMP, 1987-12, FEPR, 2276-4, 2284-8, 07870-0, 2132-9, 99947-2, 14078-4, 5130-0, 51406-6, 57093-2, 73066-4, 3357-1, 8092-9, 96028-4, 37627-4, 33638-7, 09614-5, 65861-7 #### [facility] ([id number]) [address], [address] [place] [address] MCHC (RBC) [Mass/Vol] 32.9 g/dL Normal 32-[address] [facility] Comment on above: Performed By: #### C BCA, CMP, 1987-12, FEPR, 2276-4, 2284-8, 53845-6, 2132-9, 79175-2, 80673-6, 5130-0, 26259-9, 98730-1, 71479-5, 3357-1, 8092-9, 95436-1, 23299-3, 40894-6, 49245-8, 96630-3 #### [facility] ([id number]) [address], [address] [place] [address] MCV (RBC) [Entitic vol] 85 fL Normal 80-100 [facility] Comment on above: Performed By: #### C BCA, CMP, 1987-12, FEPR, 2276-4, 2284-8, 68861-0, 2132-9, 17056-7, 95437-8, 5130-0, 64140-4, 64444-2, 81007-3, 3357-1, 8092-9, 61973-4, 72812-1, 42203-6, 62351-7, 28953-9 #### [facility] ([id number]) [address], [address] [place] [address] Monocytes (Bld) [#/Vol] 0.1 10*3/uL Normal 0-0.9 [facility] Comment on above: Performed By: #### C BCA, CMP, 1987-12, FEPR, 2276-4, 2284-8, 05627-4, 2132-9, 77368-8, 80841-6, 5130-0, 50743-0, 12280-4, 00995-3, 3357-1, 8092-9, 34145-7, 45351-5, 15489-5, 20028-0, 32415-7 #### [facility] ([id number]) [address], [address] [place] [address] Monocytes/100 WBC (Bld) 1.0 % Normal [facility] Comment on above: Performed By: #### C SHARATH, CMP, 1987-12, FEPR, 2276-4, 2284-8, 51988-0, 2132-9, 26891-5, 57169-3, 5130-0, 56622-3, 62582-7, 80049-4, 3357-1, 8092-9, 43052-6, 66163-0, 66972-7, 71033-0, 84644-3 #### [facility] ([id number]) [address], [address] [place] [address] Neutrophils/100 WBC (Bld) 93.3 % Normal [facility] Comment on above: Performed By: #### C SHARATH, CMP, 1987-12, FEPR, 2276-4, 2284-8, 89410-4, 2132-9, 73590-3, 51145-8, 5130-0, 84121-2, 02785-1, 35031-1, 3357-1, 8092-9, 23625-6, 96557-3, 32906-0, 43922-3, 49118-5 #### [facility] ([id number]) [address], [address] [place] [address] Platelet mean volume (Bld) [Entitic vol] 6.3 fL Low 7-12 [facility] Comment on above: Performed By: #### C BCA, CMP, 1987-12, FEPR, 2276-4, 2284-8, 05466-0, 2132-9, 45285-2, 67416-3, 5130-0, 38964-1, 78522-5, 16529-0, 3357-1, 8092-9, 36219-6, 73889-6, 83714-3, 80803-2, 86377-6 #### [facility] ([id number]) [address], [address] [place] [address] Platelets (Bld) [#/Vol] 917 10*3/uL High 150-450 [facility] Comment on above: Performed By: #### C SHARATH, KELVIN, 1987-12, FEPR, 2276-4, 2284-8, 24288-1, 2132-9, 25045-7, 15868-9, 5130-0, 79859-5, 93292-3, 06634-9, 3357-1, 8092-9, 37209-6, 29679-9, 18952-9, 39920-2, 85769-0 #### [facility] ([id number]) [address], [address] [place] [address] RBC COUNT 3.07 X10E12/L Low 3.80-5.20 [facility] Comment on above: Performed By: #### C SHARATH, KELVIN, 1986-12, FEPR, 227-4, 2284-8, 65007-7, 2132-9, 92756-4, 54561-9, 5130-0, 85819-9, 94251-3, 00258-3, 3357-1, 8092-9, 47738-7, 24636-2, 35012-2, 50054-2, 62401-8 #### [facility] ([id number]) [address], [address] [place] [address] WBC (Bld) [#/Vol] 11.1 10*3/uL High 4.0-11.0 [facility] Comment on above: Performed By: #### C SHARATH, CMP, 1986-12, FEPR, 2276-4, 2284-8, 16842-3, 2132-9, 94576-1, 63035-7, 5130-0, 21465-7, 39776-3, 55613-7, 3357-1, 8092-9, 44814-1, 19634-2, 38894-4, 23000-3, 07338-4 #### [facility] ([id number]) [address], [address] [place] [address] CBC auto differentialon 08-27 Basophils (Bld) [#/Vol] [...] (Bld) [#/Vol] 12.1 High [facility] Basophils (Bld) [#/Vol] 0.2 10*3/uL [facility] Basophils/100 WBC (Bld) 2.1 % [facility] Eosinophils (Bld) [#/Vol] 0.0 10*3/uL [facility] Eosinophils/100 WBC (Bld) 0.0 % [facility] Erythrocyte distribution width (RBC) [Ratio] 14.6 % 11.5 - 15.0 % [facility] Hematocrit (Bld) [Volume fraction] 26.2 % Low 35 - 47 % [facility] Hemoglobin (Bld) [Mass/Vol] 8.6 g/dL Low 11.7 - 15.5 g/dL [facility] Interpretation and review of laboratory results Abnormal [facility] Lymphocytes (Bld) [#/Vol] 0.4 10*3/uL Low [facility] Lymphocytes/100 WBC (Bld) 3.6 % [facility] MCH (RBC) [Entitic mass] 28.1 pg 27 - 34 pg [facility] MCHC (RBC) [Mass/Vol] 32.9 g/dL 32 - 36 g/dL [facility] MCV (RBC) [Entitic vol] 85 fL 80 - 100 fL [facility] Monocytes (Bld) [#/Vol] 0.1 10*3/uL [facility] Monocytes/100 WBC (Bld) 1.0 % [facility] Neutrophils (Bld) [#/Vol] 10.4 10*3/uL High [facility] Neutrophils/100 WBC (Bld) 93.3 % [facility] Platelet mean volume (Bld) [Entitic vol] 6.3 fL Low 7 - 12 fL [facility] Platelets (Bld) [#/Vol] 917 10*3/uL High [facility] RBC (Bld) [#/Vol] 3.07 10*6/uL Low [facility] WBC corrected for nucl RBC Auto (Bld) [#/Vol] 11.1 High [facility] COMPREHENSIVE METABOLIC PANE Cole 09-23-2023 Albumin [Mass/Vol] 3.0 g/dL Low 3.2-5.3 [facility] Comment on above: Performed By: #### C BCA, CMP, 1987-, FEPR, 2276-4, 2284-8, 41118-6, 2132-9, 04310-0, 57634-3, 5130-0, 29714-1, 99620-3, 36419-2, 3357-1, 8092-9, 84241-0, 24441-6, 28281-9, 08288-2, 98018-1 #### [facility] ([id number]) [address], [address] [place] [address] ALP [Catalytic activity/Vol] 227 U/L High 39-130 [facility] Comment on above: Performed By: #### C BCA, CMP, 1987-12, FEPR, 2276-4, 2284-8, 04353-8, 2132-9, 27413-3, 59242-0, 5130-0, 36810-4, 06928-3, 43158-9, 3357-1, 8092-9, 28466-5, 30127-8, 48539-5, 22750-2, 62964-4 #### [facility] ([id number]) [address], [address] [place] [address] ALT [Catalytic activity/Vol] 11 U/L Normal 0-31 [facility] Comment on above: Performed By: #### C BCA, CMP, 1987-12, FEPR, 2276-4, 2284-8, 30613-5, 2132-9, 55581-0, 84748-0, 5130-0, 69301-8, 85846-4, 58844-4, 3357-1, 8092-9, 76822-0, 63339-3, 44390-0, 90931-3, 70002-9 #### [facility] ([id number]) [address], [address] [place] [address] Anion gap [Moles/Vol] 13 mmol/L Normal 5-15 [facility] Comment on above: Performed By: #### C BCA, CMP, 1987-12, FEPR, 2276-4, 2284-8, 51113-6, 2132-9, 62398-6, 48979-9, 5130-0, 78304-9, 86920-3, 33677-4, 3357-1, 8092-9, 32809-6, 28728-8, 54839-4, 95671-0, 03919-4 #### [facility] ([id number]) [address], [address] [place] [address] AST [Catalytic activity/Vol] 12 U/L Normal 0-41 [facility] Comment on above: Performed By: #### C BCA, CMP, 1987-12, FEPR, 2276-4, 2284-8, 31526-4, 2132-9, 45691-7, 09947-1, 5130-0, 89735-2, 99800-8, 34109-4, 3357-1, 8092-9, 66493-5, 23942-9, 73100-5, 85925-7, 47387-6 #### [facility] ([id number]) [address], [address] [place] [address] Bilirubin [Mass/Vol] 0.6 mg/dL Normal 0.3-1.2 [facility] Comment on above: Performed By: #### C BCA, CMP, 1987-12, FEPR, 2276-4, 2284-8, 85394-8, 2132-9, 38964-9, 66069-1, 5130-0, 56344-8, 22791-5, 69555-7, 3357-1, 8092-9, 68842-2, 84994-2, 23192-9, 69296-8, 65576-0 #### [facility] ([id number]) [address], [address] [place] [address] Calcium [Mass/Vol] 8.6 mg/dL Normal 8.5-10.5 [facility] Comment on above: Performed By: #### C BCA, CMP, 1987-12, FEPR, 2276-4, 2284-8, 82469-7, 2132-9, 08175-3, 04522-4, 5130-0, 71406-2, 46999-0, 38606-7, 3357-1, 8092-9, 73872-9, 47560-9, 30799-7, 57343-3, 19916-7 #### [facility] ([id number]) [address], [address] [place] [address] Chloride [Moles/Vol] 101 mmol/L Normal 98-109 [facility] Comment on above: Performed By: #### C BCA, CMP, 1987-12, FEPR, 2275-4, 2284-8, 60110-4, 2132-9, 33461-9, 20863-0, 5130-0, 60353-6, 58274-7, 28504-9, 3357-1, 8092-9, 59335-3, 78559-9, 76463-5, 14962-9, 09172-6 #### [facility] ([id number]) [address], [address] [place] [address] CO2 [Moles/Vol] 25 mmol/L Normal 22-32 [facility] Comment on above: Performed By: #### C BCA, CMP, 1987-12, FEPR, 227-4, 2284-8, 80763-0, 2132-9, 41019-9, 66147-2, 5130-0, 29124-3, 31164-2, 56515-7, 3357-1, 8092-9, 26507-8, 33801-4, 83195-2, 26839-2, 98614-0 #### [facility] ([id number]) [address] [place] [address], [address] [place] [address] Creatinine [Mass/Vol] 0.49 mg/dL Normal 0.40-1.00 [facility] Comment on above: Result Comment: METH OD TRACEABLE TO IDMS STANDARD Performed By: #### C SHARATH, CMP, 1987-12, FEPR, 2276-4, 2284-8, 54224-8, 2132-9, 91734-2, 49474-4, 5130-0, 24853-8, 63950-2, 00061-3, 3357-1, 8092-9, 56443-1, 91243-8, 96103-5, 85977-4, 38498-1 #### [facility] ([id number]) [address] [place] [address], [address] [address] eGFR (CKD-EPI) NON-RACE DEPENDENT >90 Normal >59 [facility] Comment on above: Result Comment: Reported eGFR is based on the CKD-EPI 2020 equation that does not use a race coefficient. Performed By: #### C SHARATH, KELVIN, 1987-12, FEPR, 227-4, 2284-8, 64804-6, 2132-9, 49380-3, 78267-8, 5130-0, 46792-0, 69150-6, 60819-7, 3357-1, 8092-9, 84072-8, 08964-6, 39891-4, 91642-2, 00005-3 #### [facility] ([id number]) [address] [place] [address], [facility] [address] [place] [address] Glucose [Mass/Vol] 141 mg/dL High 65-99 [facility] Comment on above: Performed By: #### C SHARATH, CMP, 1987-12, FEPR, 2276-4, 2284-8, 01017-7, 2132-9, 09837-0, 28082-3, 5130-0, 86167-6, 70194-1, 12650-1, 3357-1, 8092-9, 61240-8, 74420-1, 45126-9, 65965-0, 38458-0 #### [facility] ([id number]) [address], [address] [place] [address] Potassium [Moles/Vol] 3.7 mmol/L Normal 3.5-5.0 [facility] Comment on above: Performed By: #### C BCA, CMP, 1987-12, FEPR, 2275-4, 2283-8, 53199-6, 2131-9, 98971-9, 00369-9, 5130-0, 09079-0, 91999-3, 01870-8, 3357-1, 8092-9, 06041-1, 69593-5, 58580-2, 29746-5, 56123-1 #### [facility] ([id number]) [address], [address] [place] [address] Protein [Mass/Vol] 6.9 g/dL Normal 6.0-8.0 [facility] Comment on above: Performed By: #### C BCA, CMP, 1987-12, FEPR, 2275-4, 2283-8, 13404-4, 213-9, 97573-3, 09544-7, 5130-0, 97766-5, 44300-2, 58586-7, 3357-1, 8092-9, 44606-1, 79089-6, 83335-8, 03092-0, 45282-9 #### [facility] ([id number]) [address], [address] [place] [address] Sodium [Moles/Vol] 139 mmol/L Normal 134-146 [facility] Comment on above: Performed By: #### C BCA, CMP, 1987-12, FEPR, 227-4, 2284-8, 16539-7, 2132-9, 83562-7, 75073-8, 5130-0, 35116-7, 09785-0, 65774-5, 3357-1, 8092-9, 77077-0, 28683-4, 28461-8, 63316-5, 98464-9 #### [facility] ([id number]) [address] [facility], [address] [place] [address] Urea nitrogen [Mass/Vol] 14 mg/dL Normal 5-27 [facility] Comment on above: Performed By: #### C BCA, CMP, 1987-, FEPR, 2276-4, 2284-8, 46377-9, 213-9, 82067-2, 00860-4, 5130-0, 77134-6, 24811-9, 98326-2, 3357-1, 8092-9, 32704-2, 96815-2, 77445-7, 81668-4, 96738-0 #### [facility] ([id number]) [address] [facility], [address] [place] [address] CRP [Mass/Vol]on 09-23-2023 C REACTIVE PROTEIN 13.3 mg/dL High 0.000-0.744 [facility] Comment on above: Performed By: #### C BCA, CMP, 1987-, FEPR, 2276-4, 2284-8, 41548-7, 2-9, 74744-7, 34993-7, 5130-0, 38391-4, 67826-0, 73158-2, 3357-1, 8092-9, 87480-4, 23316-8, 92024-1, 05427-0, 13778-9 #### [facility] ([id number]) [address] [facility], [address] [place] [address] Centromere ABon 09-23-2023 Centromere protein B Ab Ql (S) High [facility] Comment on above: CLIA ID [id number] Centromere protein B Ab Ql ( S)on 09-23-2023 Interpretation and review of laboratory results Abnormal [facility] CENTROMERE ANTIBODY >8.0 High <1.0 [facility] Comment on above: Performed By: #### C BCA, CMP, 1987-, FEPR, 2276-4, 2284-8, 96717-5, 2132-9, 48273-2, 68333-7, 5130-0, 90051-4, 62925-0, 04127-2, 3357-1, 8092-9, 69107-8, 94207-3, 24510-2, 87740-5, 14972-6 #### [facility] ([id number]) [address] [place] [address], [address] [place] [address] Chromatin Ab Qlon 09-23-2023 CHROMATIN AB IGG 0.4 AI Normal <1.0 [facility] Comment on above: Performed By: #### C BCA, CMP, 1987-12, FEPR, 2276-4, 2284-8, 67876-1, 2132-9, 79227-2, 05751-7, 5130-0, 96247-3, 71940-2, 01665-0, 3357-1, 8092-9, 27818-1, 30751-3, 97595-9, 32146-6, 48289-2 #### [facility] ([id number]) [address] [place] [address], [address] [place] [address] Clinical Pathologyon 024 Clinical Pathology Normal [facility] Comment on above: Result Comment: [facility] [address] [place] [address] Clinical Pathology Report Patient Name:JOSE DAVID:1945 (Age: 78)Gender:FTaken:4Reported:4Physician(s):Olga Pan M.D. ([phone])Copy To: Rec. #:[id number]: #[id number] Final Pathologic Diagnosis Hypoalbuminemia with increase in acute phase reactants. No monoclonal bands identified. Report Electronically Signed Out 09/27/2023kevin Bains MD Interpretation performed at [facility], [address] [place] [address], License number: [id number]. Clinical History E53.8, H53.8, R29.90. SERUM PROTEIN ELECTROPHORESIS SAMPLE NO: [id number] ELECTROPHORETIC FRACTION CONCENTRATIONS (g/dL) PATIENT REFERENCE RANGE [...] IgA : 180 IgM : 285 Free [place]: 2.91 Free Lambda: 2.38 Free [place]/Lambda ratio: 1.22 Specimen(s) Received 1: Serum Protein Electrophoresis 2: Serum IEP Fee Codes(s): 1; 89629-04 2; 31952-17 Clinical Pathology Blood Sme ar Reviewon 09-23-2023 Clinical Pathology Blood Smear Review Normal [facility] Comment on above: Result Comment: [facility] [address] [place] [address] Clinical Pathology Report Patient Name:JOSE DAVID:1945 (Age: 78)Gender:FTaken:4Reported:4Physician(s):Olga Pan M.D. ([phone])Copy To: Rec. #:[id number]: #[id number] Final Pathologic Diagnosis Peripheral blood smear: Neutrophilic [...] Out hna/09/26/2023Og Martinez M.D. [facility], [address] [place] [address], License number: [id number]. Clinical History R29.9. BLOOD SMEAR EVALUATION CBC (09/23/2023 0818): WBC = 12.1 X10E9/L; HGB = 9.1 g/dL; HCT = 27.8%; MCV = 85 fL; PLT = 924 X10E9/L OTHER LAB DATA: Noncontributory. BLOOD SMEAR: Leukocytes: Neutrophilic leukocytosis with cytotoxic changes and lymphocytopenia. Erythrocytes: Moderate normocytic normochromic anemia. Platelets: Thrombocytosis. Specimen(s) Received Blood Smear Review Fee Codes(s): 1; 82935 Cobalamin (Vitamin B12) [Mas s/Vol]on 09-23-2023 [facility] Comprehensive metabolic pane cole 09-23-2023 Albumin [Mass/Vol] 3.0 g/dL Low 3.2 - 5.3 g/dL [facility] ALP [Catalytic activity/Vol] 227 U/L High 39 - 130 U/L [facility] ALT No additional P-5'-P [Catalytic activity/Vol] 11 U/L 0 - 31 U/L [facility] Anion gap [Moles/Vol] 13 mmol/L 5 - 15 mmol/L [facility] AST [Catalytic activity/Vol] 12 U/L 0 - 41 U/L [facility] Bilirubin [Mass/Vol] 0.6 mg/dL 0.3 - 1 .2 mg/dL [facility] Calcium [Mass/Vol] 8.6 mg/dL 8.5 - 10. 5 mg/dL [facility] Chloride [Moles/Vol] 101 mmol/L 98 - 10 9 mmol/L [facility] CO2 [Moles/Vol] 25 mmol/L 22 - 32 mmol/L [facility] Creatinine [Mass/Vol] 0.49 mg/dL 0.40 - 1.00 mg/dL [facility] Comment on above: METHOD TRACEABLE TO [facility] STANDARD eGFR (CKD-EPI)non-race dependent - PINF [facility] Comment on above: Reported eGFR is based on the CKD-EPI 2020 equation that does not use a race coefficient. Glucose [Mass/Vol] 141 mg/dL High 65 - 99 mg/dL [facility] Potassium [Moles/Vol] 3.7 mmol/L 3.5 - 5.0 mmol/L [facility] Protein [Mass/Vol] 6.9 g/dL 6.0 - 8.0 g/dL [facility] Sodium [Moles/Vol] 139 mmol/L 134 - 146 mmol/L [facility] Urea nitrogen [Mass/Vol] 14 mg/dL 5 - 27 mg/d L [facility] DNA double strand Ab Qn (S)o n 09-23-2023 DOUBLE STRANDED DNA 1 IU/ML Normal <5 [facility] Comment on above: Result Comment: Interpretation-------- <5 Negative 5-9 Indeterminate >9 Positive Performed By: #### C BCA, CMP, 1988-5, FEPR, 2276-4, 2284-8, 52626-6, 2132-9, 72638-7, 80629-8, 5130-0, 30027-4, 87129-4, 18544-0, 3357-1, 8092-9, 83083-0, 99762-8, 33521-3, 25624-0, 77466-3 #### [facility] ([id number]) [address] [place] [address], [address] [place] [address] Direct Coombson 09-23-2023 Polyspecific HENRRY Negative [facility] ESR Photometric method (Bld) [Velocity]on 09-23-2023 Interpretation and review of laboratory results Abnormal [facility] ESR, ERYTHROCYTE SEDIMENTATION RATE 114 mm/h High 0-30 [facility] Comment on above: Performed By: #### C SHARATH, KELVIN, 1987-12, FEPR, 2275-4, 2284-8, 21027-7, 2132-9, 32871-3, 37287-1, 5130-0, 43233-2, 31664-3, 13192-2, 3357-1, 8092-9, 06862-4, 41484-9, 84578-8, 96331-7, 81293-7 #### [facility] ([id number]) [address] [facility], [address] [place] [address] Erythrocyte Sedimentation Ra te (ESR)on 09-23-2023 ESR Photometric method (Bld) [Velocity] 114 mm/h High 0 - 30 mm/h [facility] FERRITINon 09-23-2023 Ferritin [Mass/Vol] 478 ng/mL High 11-307 [facility] Comment on above: Performed By: #### C SHARATH, KELVIN, 1987-12, FEPR, 2275-, 2283-8, 45569-7, 2131-9, 08944-4, 42013-1, 5130-0, 40852-5, 75735-0, 24571-5, 3357-1, 8092-9, 58628-2, 85278-5, 09564-0, 50172-9, 77813-1 #### [facility] ([id number]) [address] [facility], [address] [place] [address] FLOW CYTOMETRYon 09-23-2023 FLOW CYTOMETRY SEE SEPARATE REPORT, REVIEWED BY PATHOLOGIST Normal [facility] Comment on above: Performed By: #### C SHARATH, KELVIN, 1987-12, FEPR, 2275-4, 2284-8, 19354-0, 2132-9, 04950-7, 30459-3, 5130-0, 14718-7, 77818-0, 80914-2, 3357-1, 8092-9, 55840-5, 88464-3, 06897-1, 54321-1, 00501-3 #### [facility] ([id number]) [address] [place] [address], [address] [place] [address] Ferritinon 09-23-2023 Ferritin [Mass/Vol] 478 ng/mL High 11 - 307 ng/mL [facility] Ferritin [Mass/Vol]on 2023 Interpretation and review of laboratory results Abnormal [facility] Folateon 09-23-2023 Folate [Mass/Vol] 13.0 ng/mL 5.8 - PINF ng/mL [facility] Comment on above: NEW REFERENCE RANGE Folate [Mass/Vol]on 09-23-19 24 [facility] FOLIC ACID 13.0 ng/mL Normal >5.8 [facility] Comment on above: Result Comment: NEW REFERENCE RANGE Performed By: #### C BCA, CMP, 1987-12, FEPR, 2275-4, 4-8, 89248-5, 2131-9, 76044-5, 99009-5, 5130-0, 56977-4, 37360-5, 16025-1, 3357-1, 8092-9, 36045-3, 55132-0, 32140-9, 62327-0, 49042-0 #### [facility] ([id number]) [address] [place] [address], [address] [place] [address] Haptoglobinon 09-23-2023 Haptoglobin Nephelometry [Mass/Vol] 613 mg/dL High 32 - 228 mg/dL [facility] Haptoglobin Nephelometry [Ma ss/Vol]on 09-23-2023 Interpretation and review of laboratory results Abnormal [facility] HAPTOGLOBIN 613 mg/dL High 32-228 [facility] Comment on above: Performed By: #### C BCA, CMP, 1987-12, FEPR, 2276-4, 2284-8, 88705-3, 2131-9, 89817-7, 88090-0, 5130-0, 36037-2, 03683-5, 83853-9, 3357-1, 8092-9, 70711-1, 49682-9, 81946-8, 40438-2, 42464-6 #### [facility] ([id number]) Count includes the [facility], [address] [place] [address] Hepatitis panel, acuteon HAV IgM IA Ql Non-Reactive Non-Reactive ^Non-Reactiv e [facility] HBV core IgM IA Ql Negative Negative^ Neg ative [facility] HBV surface Ag IA Ql Negative Negativ e^Neg ative [facility] HCV Ab IA Ql Non-Reactive Non-Reactive ^Non-Reactiv e [facility] Comment on above: If recent infection suspected, recommend repeat testing (>2 months). Njhfrg-ew-nahtji ratio is <0.80. [facility] Homocysteine [Moles/Vol]on 0 09-23-2023 HOMOCYSTEINE 9.29 mcmol/L Normal 3.36-20.44 [facility] Comment on above: Performed By: #### C BCA, CMP, 1987-12, FEPR, 2275-4, 4-8, 88577-5, 2132-9, 22701-4, 44674-2, 5130-0, 05192-8, 73319-8, 93104-1, 3357-1, 8092-9, 20014-3, 28442-0, 21095-4, 87098-9, 71341-5 #### [facility] ([id number]) [address] [facility], [address] [place] [address] [facility] Homocysteine totalon 024 Homocysteine [Moles/Vol] 9.29 umol/L [facility] IMMUNOELECTROPHORESIS FOR TH ERAPY MONITORINGon 09-23-2023 FREE KECIA/LAMBD RATIO 1.22 Normal 0.26-1.65 [facility] Comment on above: Performed By: #### C BCA, CMP, 1987-12, FEPR, 2276-4, 2284-8, 33470-8, 2132-9, 69534-2, 92629-1, 5130-0, 79442-9, 51013-7, 09599-9, 3357-1, 8092-9, 14922-8, 51902-3, 84858-1, 46057-0, 18191-3 #### [facility] ([id number]) [address] [facility], [address] [place] [address] FREE KAPPA LT CHAINS 2.91 mg/dL High 0.33-1.94 [facility] Comment on above: Performed By: #### C SHARATH, CMP, 1987-12, FEPR, 6-4, 2284-8, 41654-9, 2132-9, 66915-6, 19197-7, 5130-0, 53184-6, 74991-1, 75863-3, 3357-1, 8092-9, 51112-6, 91347-9, 36511-8, 47517-2, 42833-1 #### [facility] ([id number]) [address] [facility], [address] [place] [address] FREE LAMBDA LT CHAINS 2.38 mg/dL Normal 0.57-2.63 [facility] Comment on above: Performed By: #### C BCA, CMP, 1987-12, FEPR, 6-4, 2284-8, 93929-0, 2132-9, 29489-4, 04553-7, 5130-0, 47616-4, 06750-5, 15669-1, 3357-1, 8092-9, 04102-4, 17362-3, 15881-3, 49695-9, 02731-4 #### [facility] ([id number]) [address] [facility], [address] [place] [address] IgA [Mass/Vol] 180 mg/dL Normal 68-378 [facility] Comment on above: Performed By: #### C BCA, CMP, 1987-12, FEPR, 2276-4, 2284-8, 22704-1, 2132-9, 77287-1, 55921-8, 5130-0, 87475-2, 87988-1, 47453-3, 3357-1, 8092-9, 02281-6, 13084-1, 64136-1, 54839-0, 50703-1 #### [facility] ([id number]) [address] [facility], [address] [place] [address] IgG [Mass/Vol] 992 mg/dL Normal 635-1741 [facility] Comment on above: Performed By: #### C SHARATH, KELVIN, 1987-12, FEPR, 2275-4, 2284-8, 82021-3, 2132-9, 42524-3, 91448-6, 5130-0, 19464-1, 36066-3, 07290-8, 3357-1, 8092-9, 01083-6, 40600-2, 95873-3, 60272-0, 34199-5 #### [facility] ([id number]) Count includes the [facility], [address] [place] [address] IgM [Mass/Vol] 285 mg/dL High 45-281 [facility] Comment on above: Performed By: #### C SHARATH, KELVIN, 1987-12, FEPR, 2275-4, 4-8, 17900-5, 2132-9, 66803-7, 50551-2, 5130-0, 16287-3, 77699-5, 96183-4, 3357-1, 8092-9, 06953-5, 88321-2, 36247-4, 65214-3, 49235-4 #### [facility] ([id number]) [address] [facility], [address] [place] [address] IMMUNE PROFILE INTERP SEE SEPARATE REPORT Normal [facility] Comment on above: Performed By: #### C BCA, CMP, 1987-12, FEPR, 2276-4, 2284-8, 21224-2, 2132-9, 49908-5, 52400-0, 5130-0, 34752-9, 47834-8, 37465-3, 3357-1, 8092-9, 02624-9, 82247-3, 43012-0, 80995-9, 28268-5 #### [facility] ([id number]) [address] [facility], [address] [place] [address] IRON PROFILEon 09-23-2023 Iron [Mass/Vol] 25 ug/dL Low 50-170 [facility] Comment on above: Performed By: #### C SHARATH, CMP, 1987-12, FEPR, 2275-4, 2283-8, 01691-7, 2132-9, 63951-4, 14090-6, 5130-0, 50420-2, 45921-1, 33823-4, 3357-1, 8092-9, 20559-2, 22944-6, 34645-9, 72818-3, 14813-4 #### [facility] ([id number]) Count includes the [facility]0 [facility], [address] [place] [address] IRON BINDING 179 ug/dL Low 250-425 [facility] Comment on above: Performed By: #### C BCA, CMP, 1987-12, FEPR, 2275-4, 2283-8, 60407-1, 2132-9, 79879-3, 56346-0, 5130-0, 62973-2, 33356-0, 12162-7, 3357-1, 8092-9, 62844-3, 03204-6, 49851-2, 29635-4, 76589-2 #### [facility] ([id number]) [address] [facility], [address] [place] [address] IRON SATURATION 14 % SATURATION Low 15-50 [facility] Comment on above: Performed By: #### C BCA, CMP, 1987-12, FEPR, 2276-4, 2284-8, 10017-1, 2132-9, 69685-0, 55631-7, 5130-0, 72932-1, 56689-2, 89123-5, 3357-1, 8092-9, 97440-5, 27900-5, 30476-4, 34114-4, 42321-0 #### [facility] ([id number]) [address] [facility], [address] [place] [address] Iron and TIBCon 09-23-2023 Interpretation and review of laboratory results Abnormal [facility] Iron [Mass/Vol] 25 ug/dL Low 50 - 170 ug/dL [facility] Iron binding capacity [Mass/Vol] 179 ug/dL Low 250 - 425 ug/dL [facility] Iron saturation [Mass fraction] 14 Low [facility] JAK2 gene [id number] [facility] (Bld/Tiss)on 09-23-2023 JAK2 V617F MUTATION, BLOOD SEE COMMENTS 09/26/2023 10:21 AM Normal [facility] Comment on above: Result Comment: NOTE Test Result Flag Unit RefValue ----- JAK2 V617F Mutation Detection, B JAK2 Result see interpretation JAK2 V617F Mutation Detection, B See Note Peripheral blood, JAK2 V617F mutation analysis: Negative for JAK2 V617F. A negative [id number] test result does not exclude the possibility [...] assay has been determined at 0.06% (see [facility] Interpretive Handbook for method details). This test was developed and its performance characteristics determined by [facility] in a manner consistent with CLIA requirements. This test has not been cleared or approved by the U.S. Food and Drug Administration. Test Performed by: [place] [address] Scutcher Tender: Thierry Duran M.D. Ph.D.; CLIA# [id number] Performed By: #### C KELVIN EARLY, 1987-12, FEPR, 2276-4, 2284-8, 64134-8, 213-9, 54745-9, 16480-8, 5130-0, 94595-8, 33470-9, 45493-8, 3357-1, 8092-9, 88442-9, 89199-1, 03900-6, 86271-8, 10308-2 #### [facility] ([id number]) [address] [place] [address], [address] [place] [address] Tiki 1 AB IGGon 09-23-2023 Anileridine Ql (U) NINF [facility] LDHon 09-23-2023 LDH [Catalytic activity/Vol] 140 U/L 100 - 235 U/L [facility] LDH [Catalytic activity/Vol] on 09-23-2023 [facility] LDH 140 U/L Normal 100-235 [facility] Comment on above: Performed By: #### C SHARATH, CMP, 1987-12, FEPR, 2276-4, 2284-8, 60430-4, 2132-9, 11992-8, 89100-7, 5130-0, 10345-6, 27500-4, 44827-1, 3357-1, 8092-9, 78061-6, 60906-0, 95489-0, 37734-2, 46036-5 #### [facility] ([id number]) [address] [place] [address], [address] [place] [address] Methylmalonate [Moles/Vol]on 09-23-2023 MMA QN 0.23 umol/L Normal <=0.40 [facility] Comment on above: Result Comment: NOTE This test was developed and its performance characteristics determined by [facility]'s [facility] Pathology and Laboratory Medicine [place] ([facility] [place] It has not been cleared or approved by the FDA. -[facility] is regulated under CLIA as qualified to perform high-complexity testing. This test is used for clinical purposes. It should not be regarded as investigational or for research. Test Performed By: [place] [address] Beer Maker: Meño Hernandez III, M.D. CLIA #[id number] Narrative diagnostic report [employer] [facility] (Bld/Tiss) [Interp]on 09-23-2023 BCR/ABL PCR w/Reflex SEE COMMENTS 09/25/2023 04:24 PM Normal [facility] Comment on above: Result Comment: NOTE Test Result Flag Unit RefValue ----- BCR/ABL1 Reflex, Qual/Quant Specimen Type EDTA WHOLE BLOOD BCR/ABL1 Reflex Result see interpretation Interpretation See Note Peripheral blood, BCR/ABL1 mRNA analysis, qualitative: Negative. No BCR/ABL1 mRNA transcripts were detected. Method summary: The presence or absence of BCR/ABL1 mRNA transcripts was evaluated using a qualitative, reverse nuclear waste process operator PCR-based assay. The assay detects nearly all published and theoretical BCR/ABL1 fusion forms including the common e13/e14-a2 (p210) and e1-a2 (p190) transcripts, as well as other rarer variants (e.g. e19-a2 (p230), e13/e14-a3, e1-a3, etc.). The limit of detection for this assay is 0.1%. Please contact the lab at [phone] with questions or if additional testing is required. See [facility] crobo Test Catalog for additional method details. Signing Pathologist: Ammon Titus M.D. (Jane), Ph.D. ADDITIONAL INFORMATION This test was developed and its performance characteristics determined by [facility] in a manner consistent with CLIA requirements. This test has not been cleared or approved by the U.S. Food and Drug Administration. Test Performed by: [place] [address] Scutcher Tender: Thierry Duran M.D. Ph.D.; CLIA# [id number] Neutrophil cytoplasmic Ab IF Ql (S)on 09-23-2023 ANCA See Below Normal [facility] Comment on above: Result Comment: NOTE [...] results and clinical correlation. Test Performed By: [facility] [employer] [address] [place] [address] Beer Maker: Meño Hernandez III, M.D. CLIA #[id number] No Panel Informationon 09-23 [facility] Interpretation and review of laboratory results Abnormal [facility] Nuclear Ab IA Ql (S)on 09-23 Interpretation and review of laboratory results Abnormal [facility] SILVIA Screen w/reflex Positive Abnormal NEG [facility] Comment on above: Result Comment: Testing performed using multiplex flow immunoassay. Eleven different antigens associated with systemic autoimmune diseases (dsDNA,Sm,Sm/CHICKEN STUFFER,CHICKEN STUFFER,Chromatin, SSA,SSB,Tiki-1,Scl70,Ribo P,Centromere B) are included in this screening test. Performed By: #### C BCA, CMP, 1988-5, FEPR, 2276-4, 2284-8, 72520-7, 2132-9, 75343-9, 40033-7, 5130-0, 01943-9, 18048-7, 73471-9, 3357-1, 8092-9, 32761-5, 77729-0, 22220-6, 68984-5, 20620-1 #### [facility] ([id number]) [address] [place] [address], [address] [place] [address] comment (Bld) [Interp]on 09-23-2023 STAFF REVIEW NOTE Normal [facility] Comment on above: Result Comment: [facility] [address] [place] [address] Clinical Pathology Report Patient Name:JOSE DAVID:1945 (Age: 78)Gender:FTaken:4Reported:09/26/2023hysician(s):Olga Pan M.D. ([phone])Copy To: Rec. #:[id number]: #[id number] Final Pathologic Diagnosis Peripheral blood smear: Neutrophilic [...] Out hna/09/26/2023Og Martinez M.D. [email or web address], [address] [place] [address], License number: [id number]. Clinical History R29.9. BLOOD SMEAR EVALUATION CBC (09/23/2023 0818): WBC = 12.1 X10E9/L; HGB = 9.1 g/dL; HCT = 27.8%; MCV = 85 fL; PLT = 924 X10E9/L OTHER LAB DATA: Noncontributory. BLOOD SMEAR: Leukocytes: Neutrophilic leukocytosis with cytotoxic changes and lymphocytopenia. Erythrocytes: Moderate normocytic normochromic anemia. Platelets: Thrombocytosis. Specimen(s) Received Blood Smear Review Fee Codes(s): 1; 92868 Performed By: #### C BCA, CMP, 1988-5, FEPR, 2276-4, 2284-8, 38533-9, 2132-9, 59530-1, 90705-9, 5130-0, 44984-6, 80401-3, 01086-8, 3357-1, 8092-9, 97370-0, 89662-3, 86226-8, 20043-2, 21554-3 #### [facility] ([id number]) [address] [place] [address], [address] [place] [address] CHICKEN STUFFER AB IgGon 09-23-2023 Ribonucleoprotein extractable nuclear IgG Qn (S) [facility] Comment on above: CLIA ID [id number] Rheumatoid factoron 09-23-19 Rheumatoid factor Nephelometry Qn (S) 21 High [facility] Rheumatoid factor Nephelomet ry Qn (S)on 09-23-2023 Interpretation and review of laboratory results Abnormal [facility] RHEUMATOID FACTOR 21 IU/mL High <20 [facility] Comment on above: Performed By: #### C SHARATH, KELVIN, 1987-12, FEPR, 2275-4, 4-8, 67272-4, 2132-9, 13986-3, 28339-5, 5130-0, 32513-8, 76268-8, 26025-8, 3357-1, 8092-9, 04728-0, 61155-3, 16558-5, 87260-0, 93808-5 #### [facility] ([id number]) [address] [place] [address], [address] [place] [address] Ribonucleoprotein extractabl e nuclear IgG Qn (S)on 09-23-2023 CHICKEN STUFFER ANTIBODY IGG <0.2 Normal <1.0 [facility] Comment on above: Performed By: #### C SHARATH, KELVIN, 1987-12, FEPR, 2275-, 2283-8, 25686-6, 2-9, 15842-3, 66331-1, 5130-0, 25040-9, 51762-5, 18425-7, 3357-1, 8092-9, 89582-2, 35406-3, 34173-9, 73663-0, 30997-1 #### [facility] ([id number]) [address] [place] [address], [address] [place] [address] Ribosomal P IgG Qn (S)on RIBOSOME P ANTIBODY <0.2 Normal <1.0 [facility] Comment on above: Performed By: #### C SHARATH, KELVIN, 1987-12, FEPR, 2275-, 2283-8, 27554-3, 2132-9, 65737-5, 70094-1, 5130-0, 17048-9, 47138-7, 39539-5, 3357-1, 8092-9, 22523-5, 48123-7, 38950-3, 26631-2, 47069-0 #### [facility] ([id number]) [address], [address] [place] [address] SCL-70 extractable nuclear A b Ql (S)on 09-23-2023 SCL 70 ANTIBODY <0.2 Normal <1.0 [facility] Comment on above: Performed By: #### C BCA, CMP, 1987-12, FEPR, 2275-, 2283-8, 53738-9, 9, 07636-9, 35380-9, 5130-0, 47107-8, 89212-9, 71277-8, 3357-1, 8092-9, 44035-8, 32586-9, 66348-5, 08311-0, 15830-8 #### [facility] ([id number]) [address] [facility], [address] [place] [address] SERUM PROTEIN ELECTROPHORESI Son 09-23-2023 Albumin [Mass/Vol] 2.5 g/dL Low 3.4-5.3 [facility] Comment on above: Performed By: #### C BCA, CMP, 1987-12, FEPR, 2275-, 2283-8, 37347-5, 9, 53678-8, 51430-8, 5130-0, 30796-1, 55975-2, 72416-2, 3357-1, 8092-9, 29990-9, 58893-6, 29646-9, 69813-1, 57274-8 #### [facility] ([id number]) [address], [address] [place] [address] ALPHA 1 GLOBULIN 0.6 g/dL High 0.1-0.4 [facility] Comment on above: Performed By: #### C BCA, CMP, 1987-12, FEPR, 2275-4, 2283-8, 13766-7, 213-9, 44818-2, 41314-3, 5130-0, 42131-5, 94741-1, 81979-7, 3357-1, 8092-9, 39809-0, 96771-2, 92968-7, 87782-8, 14964-7 #### [facility] ([id number]) [address], [address] [place] [address] ALPHA 2 GLOBULIN 1.2 g/dL High 0.4-1.1 [facility] Comment on above: Performed By: #### C BCA, CMP, 1987-12, FEPR, 2275-4, 2284-8, 87592-3, 2132-9, 63214-7, 98585-0, 5130-0, 52890-4, 19661-6, 72110-8, 3357-1, 8092-9, 23934-9, 70829-3, 44900-6, 43821-3, 17903-5 #### [facility] ([id number]) [address], [address] [place] [address] BETA GLOBULIN 0.8 g/dL Normal 0.5-1.2 [facility] Comment on above: Performed By: #### C SHARATH, CMP, 1987-12, FEPR, 2275-4, 4-8, 90223-4, 2131-9, 36192-8, 06658-7, 5130-0, 13440-7, 26693-6, 46096-9, 3357-1, 8092-9, 74125-5, 18893-8, 36643-9, 33515-9, 54099-0 #### [facility] ([id number]) [address], [address] [place] [address] GAMMA GLOBULIN 1.0 g/dL Normal 0.5-1.6 [facility] Comment on above: Performed By: #### C BCA, CMP, 1987-12, FEPR, 2275-4, 2284-8, 56256-2, 2132-9, 74143-0, 73520-0, 5130-0, 40512-1, 20246-3, 18790-8, 3357-1, 8092-9, 63092-2, 30871-6, 07157-2, 62786-1, 37544-0 #### [facility] ([id number]) [address] [facility], [address] [place] [address] PROT. ELECTROPHORESIS INTERP SEE SEPARATE REPORT Normal [facility] Comment on above: Performed By: #### C BCA, CMP, 1987-12, FEPR, 2276-4, 2284-8, 23188-8, 2132-9, 55389-4, 11707-7, 5130-0, 63333-1, 72330-9, 11301-3, 3357-1, 8092-9, 46823-6, 65894-1, 23093-9, 81336-2, 66496-7 #### [facility] ([id number]) [address] [facility], [address] [place] [address] Protein [Mass/Vol] 6.1 g/dL Normal 6.0-8.0 [facility] Comment on above: Performed By: #### C BCA, CMP, 1987-12, FEPR, 2276-4, 2284-8, 91083-9, 2132-9, 24640-9, 88121-0, 5130-0, 47244-2, 04541-2, 05835-0, 3357-1, 8092-9, 39804-0, 75947-9, 79011-2, 12477-1, 92329-7 #### [facility] ([id number]) [address] [facility], [address] [place] [address] SSA antibodyon 09-23-2023 Sjogrens syndrome-A extractable nuclear Ab Qn (S) [facility] Comment on above: CLIA ID [id number] SSB Antibodyon 09-23-2023 Sjogrens syndrome-B extractable nuclear IgG Qn (S) [facility] Comment on above: CLIA ID [id number] Scleroderma antibodyon 09-23 SCL-70 extractable nuclear Ab Ql (S) [facility] Comment on above: CLIA ID [id number] Sjogrens syndrome-A extracta ble nuclear Ab Qn (S)on 09-23-2023 SSA ANTIBODY <0.2 Normal <1.0 [facility] Comment on above: Performed By: #### C SHARATH, KELVIN, 1987-12, FEPR, 2275-, 2283-8, 37022-3, 2131-9, 34902-0, 08278-9, 5130-0, 13990-6, 07876-0, 71560-0, 3357-1, 8092-9, 84331-4, 32568-4, 18054-9, 32094-7, 79140-6 #### [facility] ([id number]) [address] [facility], [address] [place] [address] Sjogrens syndrome-B extracta ble nuclear IgG Qn (S)on 09-23-2023 SSB ANTIBODY <0.2 Normal <1.0 [facility] Comment on above: Performed By: #### C KELVIN EARLY, 1987-12, FEPR, 2275-, 2283-8, 64996-4, 2131-9, 80666-9, 78972-8, 5130-0, 05764-3, 34222-5, 20416-6, 3357-1, 8092-9, 53209-9, 06080-3, 31282-0, 18902-5, 99971-6 #### [facility] ([id number]) [address] [facility], [address] [place] [address] Mejia extractable nuclear Ab +Ribonucleoprotein extractable nuclear IgG Qn (S)on 09-23-2023 MEJIA/CHICKEN STUFFER AB IGG <0.2 Normal <1.0 [facility] Comment on above: Performed By: #### C SHARATH, KELVIN, 1987-12, FEPR, 2275-, 2283-8, 24188-4, 2132-9, 81245-9, 57125-9, 5130-0, 21208-1, 60613-9, 65955-7, 3357-1, 8092-9, 32701-4, 40108-8, 22215-4, 42850-3, 72264-4 #### [facility] ([id number]) [address] [facility], [address] [place] [address] Mejia extractable nuclear Ig G Qn (S)on 09-23-2023 ANTI-MEJIA AB IGG <0.2 Normal <1.0 [facility] Comment on above: Performed By: #### C BCA, CMP, 1987-5, FEPR, 2276-4, 2284-8, 06505-6, 2131-9, 93163-7, 64439-3, 5130-0, 63008-7, 51030-9, 53644-1, 3357-1, 8092-9, 85112-3, 18398-6, 19669-5, 95464-4, 95589-5 #### [facility] ([id number]) [address] [place] [address], [address] [place] [address] Mejia/CHICKEN STUFFER AB IgGon 4 Mejia extractable nuclear Ab+Ribonucleoprotein extractable nuclear IgG Qn (S) [facility] Surgical Pathologyon 024 Surgical Pathology Normal [facility] Comment on above: Result Comment: [facility] [address] [place], [place] [address] Flow Cytometry Patient Name:JOSE DAVIDMoisesAccession #:[id number]. Rec. #:[id number]:[facility] HospitalTaken:4DOB:1945 (Age: 78)[facility] GEN 8 ACUTE X347Dzymsxme:09/23/2023Gender: FBill. Type:ToledoReported:Priority:RBilling #:[id number] Class:TTH Special Procedure OnlyPhysician(s): Charlene Chan MD [...] patterns of antigen expression are not seen. [place] on the lymphoid population demonstrates a mixed population of phenotypically unremarkable T-cells, natural killer cells, and polyclonal B-cells, without a detectable monoclonal population. Immunophenotyping antibodies tested: CD2, CD3, CD4, CD5, CD7, CD8, CD10, CD13, CD16, CD19, CD20, CD23, CD33, CD34, CD38, CD43, CD45, CD56, CD117, CD123, CD138, [place], and Lambda. Immunophenotyping Comment: Immunophenotyping has been used in this diagnostic evaluation. This test was developed and its performance characteristics determined by the [facility] Department. It has not [...] (Vitamin B12) [Mass/Vol] 248 pg/mL Normal 180-914 [facility] Comment on above: Performed By: #### C BCA, CMP, 1988-5, FEPR, 2276-4, 2284-8, 05893-1, 2132-9, 39331-3, 00762-7, 5130-0, 10537-0, 46167-6, 97498-9, 3357-1, 8092-9, 22814-0, 77499-2, 21353-8, 30078-3, 31247-2 #### [facility] ([id number]) [address] [facility], [address] [place] [address] Vitamin B12on 09-23-2023 Cobalamin (Vitamin B12) [Mass/Vol] 248 pg/mL 180 - 914 pg/mL [facility] dRVVT/dRVVT.excess phospholi pid Coag (PPP) [Ratio]on 09-23-2023 DILUTE KORI'S VIPER VENOM Negative Normal [facility] Comment on above: Performed By: #### C BCA, CMP, 1988-5, FEPR, 2276-4, 2284-8, 21343-8, 2132-9, 11025-6, 96969-1, 5130-0, 59800-4, 67270-2, 55956-9, 3357-1, 8092-9, 51260-1, 99529-7, 96052-9, 14870-0, 01730-2 #### [facility] ([id number]) [address] [facility], [address] [place] [address] CT CSPINE WO CONon 3 CT CSPINE [...] lateral and patellofemoral compartments where there is qnac-dx-lced contact. 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 Electronically authenticated by: KARAN JENKINS Date: 2022-04-25 19:06 Normal [facility] Patient Educationon 09-10-19 22 Patient Education [...] height. This can be done either in Croatian (U.S.) or metric measurements. Note that charts are available to help you find your BMI quickly and easily without having to do these calculations yourself. To calculate your BMI in Croatian ([place].S[place] measurements, your health care provider will: [...] problems. ? BMI can be measured using Croatian measurements or metric measurements. ? To interpret [...] 04/22/2005 Document Revised: 07/24/2018 Document Reviewed: 06/24/2018 [employer] Patient Education ? 2020 [employer] Obstetrics and Gynecology Overactive Bladder, Adult [...] A spina (more content not included)... Normal [facility]-10-2021 [facility] [id number] .[id number]:127 Normal [facility] [id number] .[id number]:127 Normal [facility] Urology Office/Clinic Noteon 09-10-2021 Urology Office/Clinic [...] genitourinary system) Interesting patient still working at [employer] which came here the store when I [...] Within 1 year, only if needed [address] [place] [address]- Additional Instructions: Patient Education BMI for Adults [...] Protein Urine Dipstick: Negative (09/10/21 08:26:00) Specific Mathis Urine Dipstick: 1.025 (09/10/21 08:26:00) Urine Appearance Urine Dipstick: Clear (09/10/21 08:26:00) Urine Color Urine Dipstick: Yellow (09/10/21 08:26:00) Urobilinogen Urine Dipstick: Normal 0.2-1 EU/dl (09/10/21 08:26:00) pH Urine Dipstick: 5 (09/10/21 08:26:00) Normal [facility] Comment on above: Result Comment: Elec tronically Signed By: Gilbert ANPOLES MD\.br\Date and Time Signed: 09/10/21 08:49 EST\.br\Electronically Co-Signed By: Aurora Hdz MA\.br\Date and Time Co-Signed: 09/10/21 08:46 EST Physician Orderon 09-07-2021 Physician Order [id number] .00CD:127 Normal [facility] Vital Signs Date Time Vital Sign Value Performing Clinician Faci lity 11-06-2023 15:01-0400 Body height 157.5 cm Allie Hoskins MD Work Phone: [facility] 11-06-2023 15:01-0400 Body mass index (BMI) [Ratio] 22.09 kg/m2 Allie Hoskins MD Work Phone: [facility] [employer] [facility] 11-06-2023 15:01-0400 Body temperature 98.6 [degF] [facility] 11-06-2023 15:01-0400 Body weight 54.8 kg Allie Hoskins MD Work Phone: [facility] [employer] [facility] 11-06-2023 15:01-0400 Diastolic blood pressure 65 mm[Hg] Allie Hoskins MD Work Phone: [facility] [employer] 11-06-2023 15:01-0400 Heart rate 109 /min All[facility]kins MD [facility] 11-06-2023 15:01-0400 Respiratory rate 24 /min All[facility]kins MD [facility] 11-06-2023 15:01-0400 SaO2% (BldA) [Mass fraction] 97 % Allie Hoskins MD [facility] 11-06-2023 15:01-0400 Systolic blood pressure 151 mm[Hg] Allie Hoskins MD Work Phone: [facility] 10-16-2023 11:04-0500 Body height 152.4 cm [facility] 10-16-2023 11:04-0500 Body mass index (BMI) [Ratio] 23.6 kg/m2 [facility] 10-16-2023 11:04-0500 Body weight 54.88 kg [facility] 10-16-2023 11:04-0500 Diastolic blood pressure 72 mm[Hg] [facility] 10-16-2023 11:04-0500 Heart rate 88 /min [facility] 10-16-2023 11:04-0500 SaO2% (BldA) [Mass fraction] 98 % [facility] 10-16-2023 11:04-0500 Systolic blood pressure 134 mm[Hg] [facility] 10-16-2023 09:50-0500 Diastolic blood pressure 74 mm[Hg] Mouna Bautista MD Work Phone: [facility] 10-16-2023 09:50-0500 Heart rate 72 /min Mouna Bautista MD Work Phone: [facility] 10-16-2023 09:50-0500 Systolic blood pressure 140 mm[Hg] Mouna Bautista MD Work Phone: [facility] 10-16-2023 09:49-0500 Body height 157.5 cm Mouna Bautista MD Work Phone: [facility] 10-16-2023 09:49-0500 Body mass index (BMI) [Ratio] 21.51 kg/m2 Mouna Bautista MD Work Phone: [facility] 10-16-2023 09:49-0500 Body weight 53.34 kg Mouna Bautista MD Work Phone: [facility] 10-16-2023 09:49-0500 Respiratory rate 18 /min Mouna Bautista MD Work Phone: [facility] 09-26-2023 15:31-0500 Body temperature 98.2 [degF] Bart [facility]ian MD [facility] 09-26-2023 15:31-0500 Heart rate 103 /min Bart Milian MD [facility] 09-26-2023 15:31-0500 Respiratory rate 16 /min Bart Milian MD Work Phone: [facility] [employer] 09-26-2023 15:31-0500 SaO2% (BldA) [Mass fraction] 96 % Bart Milian MD Work Phone: [facility] [employer] 09-26-2023 07:20-0500 Diastolic blood pressure 84 mm[Hg] Bart Milian MD [facility] 09-26-2023 07:20-0500 Systolic blood pressure 152 mm[Hg] Bart Milian MD Work Phone: [facility] [employer] 09-24-2023 13:40-0500 Body height 157.5 cm Bart Milian MD Work Phone: [facility] [employer] 09-24-2023 13:40-0500 Body mass index (BMI) [Ratio] 21.21 kg/m2 Bart Milian MD [facility] 09-24-2023 13:40-0500 Body weight 52.6 kg Bart Milian MD Work Phone: [facility] [employer] Encounters Encounter Date Encounter Type Care Provider Facility Start: 11-26-2023 End: 11-26-2023 ambulatory [facility] Start: 11-06-2023 End: 11-06-2023 Office outpatient visit 40 minutes Allie Hoskins MD Work Phone: Adelaida Keane [facility] Comment on above: Normocytic anemia (P rimary Dx); Thrombocytosis Start: 11-06-2023 Orders Only Malinda Keane [facility] Comment on above: Giant cell arteritis (CMS-HCC) (Primary Dx); Stroke-like symptoms; Vision blurred; Anemia, unspecified type Start: 10-21-2023 End: 10-21-2023 ambulatory JT JASSO [facility] Start: 10-17-2023 Telephone encounter Beronica Suh [facility]rology Comment on above: Med Refill Start: 10-16-2023 End: 10-16-2023 ambulatory MOUNA BAUTISTA [facility] Work Phone: Start: 10-16-2023 End: 10-16-2023 Patient encounter procedure [facility] Work Phone: Start: 10-16-2023 End: 10-16-2023 Office outpatient visit 15 minutes Mouna Bautista MD Work Phone: [facility] Comment on above: Giant cell arteritis ([facility]-H[facility]) (Primary Dx) Start: 09-29-2023 Telephone encounter Rosa Suh Neurology Comment on above: Hospital Follow-up Start: 09-27-2023 End: 09-27-2023 Evaluation and management of inpatient RICKIE STEWART [facility] Start: 09-24-2023 End: 09-27-2023 Evaluation and management of inpatient TREVIN [facility] Start: 09-24-2023 ambulatory JOHN [facility] Start: 09-24-2023 End: 09-27-2023 Evaluation and management of inpatient CARLITOS CARABALLO [facility] Start: 09-23-2023 End: 09-26-2023 [facility] Start: 09-23-2023 End: 09-26-2023 Evaluation and management of inpatient Tono Pan MD Work Phone: [facility] - GEN 8 Acute Comment on above: B12 deficiency (Prim lisa Dx); Thrombocytosis; Vision blurred; Temporal arteritis ([facility]-HCC) Start: 03-24-2023 End: 03-25-2023 ambulatory Naomy Lujan MD Facility:[facility] Start: 03-10-2023 End: 03-11-2023 ambulatory Naomy Lujan MD Facility:[facility] Start: 03-03-2023 End: 03-04-2023 ambulatory Naomy Lujan MD Facility:[facility] Start: 02-17-2023 End: 02-18-2023 ambulatory Naomy Lujan MD Facility:[facility] Start: 02-03-2023 End: 02-04-2023 ambulatory Naomy Lujan MD Facility:[facility] Start: 01-24-2023 End: 01-25-2023 ambulatory Naomy Lujan MD Facility:[facility] Start: 12-25-2022 End: 12-25-[address] PATO [...] Start: 09-23-2023 Bcr/abl1 major break pnt qualitative/quantitative Loíza Hinders [employer]IGHT [employer] Work Phone: Start: 09-23-2023 Antihuman globulin d irect each antiserum Loíza Hinders [employer]-FLIGHT [employer] Work Phone: Start: 09-23-2023 ANCA Trevin Sandhu [...] Work Phone: Start: 09-23-2023 Jak2 gene analysis [id number] variant Bart Milian MD Work Phone: Start: 09-23-2023 Antinuclear antibodies silvia Nandini Walters MD Work Phone: Start: 09-23-2023 Comprehensive metabo lic panel Nandini Walters MD Work Phone: Start: 09-23-2023 Adult depression scr eening assessment Rosa Ovalles Start: 09-23-2023 PULSE OXIMETRY, SPOT Ra leeroy Walters MD Work Phone: Plan of Treatment Date Care Activity Detail Author Start: 11-05-2024 Adult BMI Screening Adult BMI Screening [facility] Start: 10-16-2024 Adult BMI Screening Adult BMI Screening [facility] Start: 10-16-2024 Tobacco Screening Tobacco Screening [facility] Start: 09-24-2024 Adult BMI Screening Adult BMI Screening [facility] Start: 09-24-2024 Tobacco Screening Tobacco Screening [facility] Start: 09-23-2024 Depression Screening Depression Screening [facility] Start: 03-05-2024 End: 03-05-2024 Patient encounter procedure 03/05/2024 2:15 PM EDT Office Visit Adelaida Keane [facility] [address] [place] [address] Allie Hoskins MD [address] [facility] [address] [place], [place] [id number] Adelaidabahman Keane [facility] Start: 01-15-2024 End: 01-15-2024 Patient encounter procedure 01/15/2024 11:00 AM EDT Office Visit [facility] [address] [place] [address] Mouna Bautista MD [address] [address] [facility] Start: 01-02-2024 End: 01-02-2024 Patient encounter procedure 01/02/2024 1:15 PM EDT Office Visit [facility] [address] [place] [phone] Darci Santana MD [address] [place] [address] [facility] Start: 12-05-2023 End: 12-05-2023 Patient encounter procedure 12/05/2023 10:15 AM EDT Office Visit [facility] [address] [place] [phone] Darci Santana MD [address] [place] [address] [facility] Start: 11-06-2023 End: 11-06-2023 Patient encounter procedure 11/06/2023 3:30 PM EDT Office Visit Adelaida L Lakhwinder [facility] [address] [place] [phone] Allie Hoskins MD [address] [place] [address] [facility] Start: 10-16-2023 End: 10-16-2023 Patient encounter procedure 10/16/2023 9:10 AM EST Office Visit [facility] [address] [place] [address] Mouna Bautista MD [address], [address] [address] [facility] Start: 04-25-2023 Influenza vaccination Influenza Vaccine [facility] [employer] Start: 2011 Fall Risk Screening [facility] Start: 1996 Administration of varicella zoster vaccine Zoster (Shingles) Vaccine (1 of 2) [facility] Start: 1965 DTaP,Tdap and Td Vaccines (1 - Tdap) DTaP,Tdap and Td Vaccines (1 - Tdap) [facility] [employer] [place] Start: 1945 Medicare Annual Wellness Visit Medicare Annual Wellness Visit [facility] [employer] End: 09-26-2024 Basic metabolic 2000 panel - Serum or Plasma Basic Metabolic Panel Lab Routine Vision blurred 1 Occurrences starting 09/26/2023 until 09/26/2024 [facility] [employer] [facility] [place] Comment on above: 1 Occurrences starting 09/26/2023 until 09/26/2024 End: 09-26-2024 CBC W Auto Differential panel - Blood CBC auto differential Lab Routine Thrombocytosis 1 Occurrences starting 09/26/2023 until 09/26/2024 [facility] [employer] [facility] [place] Comment on above: 1 Occurrences starting 09/26/2023 until 09/26/2024 End: 11-05-2024 CBC W Auto Differential panel - Blood CBC auto differential Lab Routine Giant cell arteritis (CMS-HCC) Stroke-like symptoms Vision blurred Anemia, unspecified type every 2 months for 2 Occurrences starting 11/06/2023 until 11/05/2024 [employer] Work Phone: Comment on above: every 2 months for 2 Occurrences startin g 11/06/2023 until 11/05/2024 End: 11-05-2024 Ferritin [Mass/volume] in Serum or Plasma Ferritin Lab Routine Giant cell arteritis (CMS-HCC) Stroke-like symptoms Vision blurred Anemia, unspecified type every 2 months for 2 Occurrences starting 11/06/2023 until 11/05/2024 [employer] Comment on above: every 2 months for 2 Occurrences startin g 11/06/2023 until 11/05/2024 End: 09-23-2023 Flow cytometry blood only [employer] Work Phone: Comment on above: Once for 1 Occurrences starting 09/23/19 until 09/23/2023 Immunoelectrophoresi s for Therapy Monitoring Immunoelectrophoresis for Therapy Monitoring Lab Routine 09/23/2023 12:56 PM [facility] [employer] Phone: End: 11-05-2024 Iron and TIBC Iron and TIBC Lab Routine Giant cell arteritis (CMS-HCC) Stroke-like symptoms Vision blurred Anemia, unspecified type every 2 months for 2 Occurrences starting 11/06/2023 until 11/05/2024 [employer] Comment on above: every 2 months for 2 Occurrences startin g 11/06/2023 until 11/05/2024 Methylmalonate [Moles/volume] in Serum or Plasma Methylmalonic acid screen Lab Routine 09/23/2023 12:57 PM EST [employer] End: 09-23-2023 Methylmalonic acid screen Methylmalonic acid screen Lab Routine Once for 1 Occurrences starting 09/23/2023 until 09/23/2023 [facility] [employer] Phone: Comment on above: Once for 1 Occurrences starting 09/23/19 until 09/23/2023 Protein electrophore sis, serum Protein electrophoresis, serum Lab Routine 09/23/2023 12:56 PM Highlighter Payers Date Payer Category Payer Medicare [id number] 2022 Medicare 2016 Private Health Insurance [id number] 1959 Medicare [id number] 1945 Unknown [id number] 2.16.84 0.1.249809.3.579.2.593 1945 Unknown [id number] 2.16.84 0.1.772057.3.579.2.593 1945 Unknown [id number] 2.16. 840.1.780894.3.579.2.196 1945 Unknown [id number] 2.16. 840.1.513013.3.579.2.196 1946 Unknown [id number] 2.16. 840.1.515824.3.579.2.196 1946 Unknown [id number] 2.16. 840.1.573130.3.579.2.196 1946 Unknown [id number] 2.16. 840.1.234572.3.579.2.196 1946 Unknown [id number] 2.16. 840.1.914106.3.579.2.196 1946 Unknown [id number] 2.16.8 40.1.470183.3.579.2.1286 1946 Unknown [id number] 2.16.8 40.1.070694.3.579.2.1286 1946 Unknown [id number] 2.16.8 40.1.459003.3.579.2.1286 1946 Unknown [id number] 2.16.8 40.1.601651.3.579.2.128 1946 Unknown [id number] 2.16.8 40.1.698727.3.579.2.128 1946 Unknown [id number] 2.16.8 40.1.142987.3.579.2.128 1946 Unknown [id number] 2.16.8 40.1.052449.3.579.2.128 1946 Unknown [id number] 2.16.8 40.1.100810.3.579.2.1286 1946 Unknown [id number] 2.16.8 40.1.628900.3.579.2.1286 1946 Unknown [id number] 2.16.8 40.1.410718.3.579.2.1286 1946 Unknown [id number] 2.16.8 40.1.636282.3.579.2.1286 1946 Unknown [id number] 2.16.8 40.1.079976.3.579.2.1286 1946 Unknown [id number] 2.16.8 40.1.609459.3.579.2.1286 Self-pay Self Pay [id number] Social History Date Type Detail Facility Start: 09-23-2023 Tobacco smoking stat [facility] Never smoked tobacco [facility] Start: 09-23-2023 Tobacco use and exposure Smoke less tobacco non-user [facility] Start: 09-25-2023 End: 10-16-2023 Alcohol intake Lifetime non-drinker (finding) [facility] Start: 10-05-2020 End: 09-23-2023 History of Social function [facility] Start: 10-05-2020 End: 09-23-2023 Alcohol Use Disorder Identification Test - Consumption [AUDIT-C] [facility] How often to you hav e a drink containing alcohol? Never [facility] How many standard dr inks containing alcohol do you have on a typical day? Patient does not drink [facility] Start: 1945 Sex Assigned At Not on file P [facility] Start: 10-16-2023 [facility] Start: 1945 Sex Assigned At Female F [facility] Goals Date Patient Goal Desired Activity [...] Follow-up (GCA). HPI She was admitted to [facility] end of August 2023 due to bilateral [...] every 3 months to monitor for toxicity. [facility] 11-06-2023 History of Present illness Narrative Patient is here for consult with Dr. Hoskins. Orders received for CBC, iron studies every 2 months (print out orders). F/u in 4 months. Calendar given to family member and labs orders to be drawn at [facility]. documented in this encounter [facility] 11-06-2023 History of Present illness Narrative Images from the original note were not included. [facility] 11/06/23 Jose David is a 78 y.o. year old female seen today in the oncology clinic. Chief Complaint Patient presents with Follow-up History of Present Illness: Mrs. David is a 78 y.o. female with no significant past medical history presented to quality control associate on 09/19/2023 due to blurry vision in left eye, she was told her optic disc was swollen and the patient was given a referral to artist woodblock. Over the weekend patients vision in left eye continued to worsen and eventually lost all vision in left eye. Patient was seen by artist woodblock 09/22/2023 and time she would decreased vision also in her right eye. It was recommended that she go straight to the emergency department, for concern for giant cell arteritis. Initially she went to [facility] ER where they gave her Solu-Medrol 250 mg IV 1 dose and then transferred her to [facility]. When she arrived at [facility] she had complete vision loss in [...] 09/25/2023 Performed by Kristel Reid MD at [facility] TONSILLECTOMY TUBAL LIGATION No family history [...] day, repeat CBC and iron study at [facility] in 2 months. Follow-up in 4 months. If patient can not tolerate oral iron supplement, consider IV iron treatment. Thank you. Allie Hoskins MD Please note that portions of this note were generated using voice recognition Xcela[employer] dictation software. Although every effort was made to ensure the accuracy of this automated nuclear waste process operator, some errors in nuclear waste process operator may have occurred. CC: Patient Care Team: MERCEDES Portillo as PCP - General (Nurse Practitioner) Allie Hoskins MD as Consulting Physician (Hematology) PCP:Giovanna Graf Referring MD: John Patel DO [facility] 11-06-2023 Instructions Allie Hoskins MD - 11/06/2023 3:30 PM EDT CBC, iron studies every 2 months (print out orders). F/u in 4 months. [facility]2023 Note The daughter called back, she did submit the Extra Help application online yesterday, I don't know how long that it will take to take effect. Future filled Rx for next week to see. Pt is due for next dose in 2 weeks. I am writing appeal now to submit to PAP. Brynn Patricia, Basil, BCACP 12/24/23 10:47 AM [facility] [phone] [facility] 10-21-2023 Note Called patient and L VM to call back. What we received is a screenshot of transactions for bank account. No account saucedo name on it at all. This will not work. Called daughter Malinda's phone number: [phone]; but son Ryan answered. He will have daughter/mother call us back. Advised we need financial documents for patient assistance program application. Naresh Barrett, MeganD, [facility] Outpatient Clinical Pharmacist [place] [phone] 12/23/23 12:40 PM [facility] 10-21-2023 Note Pt's POA called back . Advised on PA process, POA requests future contact go to her directly ([phone]). F/U upon determination of PA. Mert Damon, [facility] 11/04/23 at 12:51 PM [facility] 10-21-2023 Note Pt daughter called t o [...] to check status next Friday. Mert Damon [facility] 12/22/23 at 12:14 PM [facility] 10-21-2023 Note Called and spoke wit h daughter. She plans to complete labs on 10/29/23. Will check for TB results again in a couple of days. Deb Blount, [employer] [place] [id number] 10/28/23 10:03 AM [facility] 10-21-2023 Note I spoke to the quyene [...] sent it and the denial into the [facility] PAP. I will leave the Extra Help denial letter in the folder for now and we can send everything in at once. Irena Whaley, Basil, BCACP, CSP 12/16/23 3:59 PM [facility] [phone] [facility] 10-21-2023 Note Spoke to PAP, they r eceived the appeal but need to review it. They will let us know. LM for pt's daughter to let her know. Brynn Patricia PharmD, [facility] 12/26/23 1:17 PM [facility] [phone] [facility] 10-21-2023 Note Daughter called this morning asking for status update. We received a fax 12/02 stating they had received the application and it would take 3 business days for processing. Will follow-up tomorrow with program to check the status. Brynn Patricia PharmD, SHARATHCP 12/08/23 9:44 AM [facility] [phone] [facility] 10-21-2023 Note The patient's daught er informed us that her mother had her blood work done at [facility] yesterday, therefore we should expect to receive the results in a couple of days. [facility] lab's number is [phone] if we do not received the results in care everywhere. Mony Lin, [facility] 10/31/23 9:32 AM [facility] 10-21-2023 Note We have not received any bank statements for the patient. [facility] and they haven't received them either. However, I did verify with them that they will accept the bank statements. I tried reaching the patient's daughter to follow up - no answer, LVMTCB. Alexa Bass, [facility] 12/19/23 3:09 PM [facility] 10-21-2023 Note [facility] and they said they will accept and appeal. Send in as APPEAL to [employer]. Explain the situation and provide income documentation. Daughter is going to look for SS statement, will fax today or Friday if they don't find it. Brynn Patricia, MeganD, BCACP 12/12/23 11:52 AM [facility] [phone] [facility] 10-21-2023 Note Specialty Pharmacy N ote: [facility] Supervising Physician & Clinic:?? Dr. Jt Jasso, [facility] Rheumatology Jose David is a 78 y.o. [...] be outside lab. ? Malinda's phone number: [phone] Naresh Barrett PharmD, [facility] Outpatient Clinical Pharmacist [place] [facility] [phone] 10/21/23 4:03 PM [facility] 10-21-2023 Note Prior Authorization for [employer] has been approved 11/04/2023-05/06/2024. Case ID/Authorization Number: [id number] Mony Lin [facility] 11/04/23 2:12 PM [facility] 10-21-2023 Note We received a bank s [...] the extra help application. Brynn Patricia, Basil, [facility] 12/23/23 2:01 PM [facility] [phone] [facility] 10-21-2023 Note Called and spoke wit h the patient's daughter and she plans to complete labs on Friday. Negro Curry, [employer] 10/24/23 1:21 PM [facility] 10-21-2023 Note The patient's daught er called to check on the status of the PAP application. I informed her that as of 12/08/23 they were still reviewing it. I let her know that once we have an update, we will let her know. Alexa Bass [facility] 12/10/23 10:01 AM [facility] 10-21-2023 Note Patient's daughter manuel [place] and she has not yet faxed the SS statement, but will today. Mony Lin [facility] 12/15/23 12:17 PM [facility] 10-21-2023 Note PAP denied due to in come being too high because they considered her daughters income. Based on pts income of $1590/month should qualify for extra help. Tried to call program and they are all in a meeting, will try again tomorrow. Brynn Patricia PharmD, BCACP 12/11/23 3:58 PM [facility] [phone] [facility] 10-21-2023 Note Deya called back an d said she was trying to send the bank statement with name ; I let her know that is not how we received it. I stated we probably need something that shows Jose as the account holdr - like a monthly statement. She is going to try to email to Jhoana today. Naresh Barrett PharmD, [facility] Outpatient Clinical Pharmacist [place] [phone] 12/23/23 12:56 PM [facility] 10-21-2023 Note Patient's caregiver called to confirm [...] MD portion for signature. Greg Baltazar CPhT [facility] 12/01/23 11:30 AM [facility] 10-21-2023 Note Daughter faxed us th e patient portion of the PAP application. I faxed to [employer] PAP. Jhoana Callejas PharmD Outpatient Clinical Pharmacist [place] [facility] [phone] 12/03/23 4:22 PM [facility] 10-21-2023 Note I spoke to pts luis [...] SHARATHCP 12/03/23 3:00 PM [facility] [phone] [facility] 10-21-2023 Note TB test came back ne [facility] on 10/30/23. Will submit PA to [facility]. Awaiting determination. Deb Blount, [employer] [phone] 11/04/23 11:50 AM [facility] 10-21-2023 Note Faxed appeal to [employer] PAP with letter I wrote and bank statements we received. Megan MorrisonD, [facility] 12/24/23 12:25 PM [facility] [phone] [facility] 10-21-2023 Note Subjective Patient ID: Jose David is a 78 y.o. female who presents for Follow-up (GCA). HPI She was admitted to [facility] end of August 2023 due to bilateral [...] every 3 months to monitor for toxicity. [facility] 10-17-2023 Miscellaneous Notes Patients daughter, Malinda said [...] have to fill. documented in this encounter [facility] [place] 10-17-2023 Telephone encounter Note Patients Malinda cuadra [...] pharmacy - specify address & phone number [facility] [employer] 10-17-2023 Telephone encounter Note I have attempted to contact this patient by phone with the following results: left detailed message regarding that since patient has not been seen in clinic PCP or the provider that prescribed medication will have to fill. [facility] [employer] 10-16-2023 History of Present illness Narrative Images from the original note were not included. [facility] [address] [facility] [facility] [id number] Subjective: Patient ID: Jose David is a [...] Vision blurred Stroke-like symptoms Giant cell arteritis ([facility]-H[facility]) Current Outpatient Medications: acetaminophen (TYLENOL EXTRA STRENGTH) [...] orders for this visit: Giant cell arteritis ([facility]) Plan Plan: Referral to rheumatology for management of temporal arteritis. Continue steroids in the meanwhile Mouna Bautista MD documented in this encounter [facility] [place] 09-29-2023 Miscellaneous Notes Please ask the following [...] OPINION? - Patient saw Dr. Byrne at [facility] Visit 09/23-08/26/2023 5. PATIENT IS SCHEDULED ON/WITH: - 12/05/2023 at 10:[address] Santana documented in this encounter [facility] 09-29-2023 Telephone encounter Note Please ask the [...] OPINION? - Patient saw Dr. Byrne at [facility] Hospital Visit 09/23-08/26/2023 5. PATIENT IS SCHEDULED ON/WITH: - 12/05/2023 at 10:[address] Santana [facility] 09-26-2023 Nurse Note Patient alert and oriented. IV and telemetry discontinued. All discharge instructions have been reviewed and are understood by the patient and daughter. Patient left the unit via wheelchair with all of their belongings and in no distress. Patient discharged home. [facility] 09-26-2023 Nurse Note Patient alert and oriented. IV and telemetry discontinued. All discharge instructions have been reviewed and are understood by the patient and daughter. Patient left the unit via wheelchair with all of their belongings and in no distress. Patient discharged home. documented in this encounter [facility] 09-26-2023 Hospital course Narrative Images from the original note were not included. [facility] Medicine Discharge Summary Patient's Name: Jose [...] who referred her to eye center in [place]. Over the weekend her left eye vision significantly deteriorated to a point where she could no longer see. On 09/22, she started developing vision loss in her right eye. She visited the eye center who sent her to ER right away. Patient initially presented to the [facility] ER, she was given Solu-Medrol 250 mg IV once and transferred to [facility] for further workup. Patient was evaluated [...] Your Medications These medications were sent to [facility]/pharmacy #[id number] [address] aspirin 81 mg cyanocobalamin 1000 MCG tablet [...] Regular Texture Adult diet John Patel, [address] [facility] [address] Schedule an appointment as soon as possible for a visit in 1 week(s) Jt Jasso MD [address] Rheumatology [facility] [phone] Schedule an appointment as soon as possible for a visit in 2 week(s) Joni Pizano MD [address] [facility], [address] [id number] Schedule an appointment as soon as possible for a visit in 2 week(s) Sandy Pizano MD [address] [facility], [address], [address] [facility] [phone] Schedule an appointment as soon as possible for a visit in 1 month(s) Montana Bartlett MD [address] [facility] [address] Schedule an appointment as soon [...] questions. Electronically signed by: BART MILIAN MD [facility] Physician Hospitalists, Department of Internal Medicine 09/26/23 1:16 PM documented in this encounter [facility] 09-26-2023 Hospital Discharge instructions Bart Milian MD - 09/26/2023 1:15 PM EST You are started on Aspirin to reduce exterminator helper termite risk of vascular complications with you suspected condition (giant cell arteritis) also it will help with preventing thrombosis (clotting) given your Thrombocytosis (elevated platelet count). Please discuss any concerns with your primary care provider, secretary board of commissioners or ediphone operator Discuss with primary care or secretary board of commissioners DEXA scan as you are expected to be on steroid medications for prolonged period of time (up to 6 months). Log term steroids can cause Osteoporosis. The following attachments cannot be sent through Care Everywhere.Polymyalgia rheumatica and giant cell arteritis (Croatian)documented in this encounter [facility] 09-26-2023 History of Present illness Narrative Images from the original note were not included. [facility] Rheumatology PROGRESS NOTE DATE OF ADMISSION 09/23/2023 12:25 AM REASON FOR CONSULTATION: Acute B/L sudden painless vision loss concerning for B/l GCA REFERRING PHYSICIAN: Goran Thomas MD PCP JOHN PATEL DO ASSESSMENT AND PLAN: B/L vision loss likely 2/2 GCA -Pt's initial symptoms were blur vision in L eye but unfortunately when she presented to [facility] she had complete vision loss in both [...] SSA, SSB, scleroderma antibody, Tiki 1, Mejia, CHICKEN STUFFER, anti dsDNA, anti chromatin were negative. -No [...] no significant past medical history presented to [facility] 09/24 for concerns of vision loss in left eye. Patient was evaluated by quality control associate on 09/19/2023 due to blurry vision left [...] concerns of giant cell arteritis. Initially at [facility] she was given Solu-Medrol 250 mg IV 1 dose and then transferred to [facility]. On presenting to [facility], she had complete vision loss in both eyes. She was started on IV Solu-Medrol 1000 mg for 3 days. She underwent bilateral temporal artery biopsy on 09/25/2023. During this admission she had workup done which showed positive SILVIA screen, mildly elevated rheumatoid factor at 21 and elevated anticentromere antibody. Anca ribosomal antibody, SSA, SSB, scleroderma antibody, Tiki 1, Mejia, CHICKEN STUFFER, anti dsDNA, anti chromatin were negative. PAST MEDICAL HISTORY: History reviewed. No pertinent past medical history. PAST SURGICAL HISTORY: Past Surgical History: Procedure Laterality Date APPENDECTOMY BIOPSY ARTERY TEMPORAL Bilateral 09/25/2023 Performed by Kristel Reid MD at [facility] TONSILLECTOMY TUBAL LIGATION ALLERGIES: Allergies Allergen [...] of the major arterial structures in the [place]. The paranasal sinuses are clear. Partial bilateral [...] of the major arterial structures in the [place]. The paranasal sinuses are clear. [...] from the original note were not included. [facility] V[facility] [place] Vascular Service Progress Note Subjective: Status post [...] original note were not included. [facility] Hospitalists Progress Note 09/25/2023 Patient Name: [...] 09/25/2023 Performed by Kristel Reid MD at [facility] TONSILLECTOMY TUBAL LIGATION OBJECTIVE Vital Signs: [...] presents to the emergency department from her artist woodblock's office. She was being evaluated with an artist woodblock for possible giant cell arthritis. She said [...] from the original note were not included. [facility] Neurology General Neurology Consultation Note Consult Neurology Service: [phone] Primary Team: [facility] Chief Complaint and Reason for Consultation: [...] was given referral to eye center in [facility], on Friday and Friday, vision on the left eye worsened significantly and she lost her vision on the left eye. On Friday 09/22, patient came to [place] to see an eye doctor, who asked her to go to the ED. patient initially went to [facility], given Solu-Medrol 250 mg IV once, transferred to [facility] for further workup and ophthalmology evaluation. According to the patient, her right eye vision worsened significantly on Friday, and she lost her vision on both eyes. Patient had no past medical history, she has not taking any scheduled medications, patient lives with her daughter, she is driving and working. Walking with no assistive devices. Upon initial assessment in [facility], patient had complete vision loss on [...] CTH, head and neck CTA done at [facility], reportedly unremarkable Impression: Binocular vision [...] to Friday 12-1:00 p.m. Primary Neurology service: [phone] Consult neurology service: [phone] Resident Stroke Service: [phone] If the patient belongs to the Stroke [...] from the original note were not included. [facility] Physicians Hospitalists Progress Note 09/24/2023 Patient [...] IgG 992 635 - 1,741 mg/dL Free [place] Lt Chains 2.91 (H) 0.33 - 1.94 [...] of the major arterial structures in the [place]. The paranasal sinuses are clear. [...] of the major arterial structures in the [place]. The paranasal sinuses are clear. [...] from the original note were not included. [facility] Neurology General Neurology Consultation Note Consult Neurology Service: [phone] Primary Team: SAMUEL Chief Complaint and Reason [...] was given referral to eye center in [facility], on Friday and Friday, vision on the left eye worsened significantly and she lost her vision on the left eye. On Friday 09/22, patient came to [place] to see an eye doctor, who asked her to go to the ED. patient initially went to [facility], given Solu-Medrol 250 mg IV once, transferred to [facility] for further workup and ophthalmology evaluation. According to the patient, her right eye vision worsened significantly on Friday, and she lost her vision on both eyes. Patient had no past medical history, she has not taking any scheduled medications, patient lives with her daughter, she is driving and working. Walking with no assistive devices. Upon initial assessment in [facility], patient had complete vision loss on [...] CTH, head and neck CTA done at [facility], reportedly unremarkable Impression: Binocular vision [...] to Friday 12-1:00 p.m. Primary Neurology service: [phone] Consult neurology service: [phone] Resident Stroke Service: [phone] If the patient belongs to the Stroke [...] from the original note were not included. [facility] 09/23/2023 Patient Name: [...] correct any mistakes. documented in this encounter [facility] 09-26-2023 Progress note Formatting of t [...] - Sophia Rajan RN 09/26/23 11:05 AM [facility] 09-26-2023 Miscellaneous Notes Images from the original [...] at the bedside 7. Instruct patient/ patient customer account representative about use of safety devices 8. Include patient/ patient customer account representative in decisions related to safety Note: Evaluation of progress towards goal: No reports of injury during shift. Safety measures in place Problem: Low Risk Fall Score Description: Clifford Fall Score of 0 - 24 or indicated by [facility] Assessment Goal: Patient should be free from fall Description: Interventions: 1. [place] to environment 2. Hourly rounds addressing the [...] non-skid footwear 11. Teach patient and patient customer account representative to maintain environment for safety and [...] Description: INTERVENTIONS: 1. Encourage patient or legal customer account representative to report early pain and ask [...] per policy 9. Teach patient or legal customer account representative interventions for comforting Outcome: Progressing Note: [...] at the bedside 7. Instruct patient/ patient customer account representative about use of safety devices 8. Include patient/ patient customer account representative in decisions related to safety Outcome: [...] hygiene technique 7. Identify and instruct patient/patient customer account representative in use of appropriate isolation precautions for identified infection/symptoms 8. Provide and discuss with patient/patient customer account representative on educational MDRO sheet 9. Encourage and monitor nutritional status daily and consult appliances sample maker if indicated 10. Implement neutropenic guidelines as needed 11. Review exposure to history of communicable disease and recent travel history on admission 12. Encourage annual influenza vaccine 13. Encourage pneumonia vaccine Outcome: Progressing Note: Evaluation of progress towards goal: Patient free from signs of infection. Afebrile. Continue to Monitor. Problem: Knowledge Deficit Goal: Patient/patient customer account representative demonstrates understanding of disease process, treatment [...] of 0 - 24 or indicated by [facility] Assessment Goal: Patient should be free from fall Description: Interventions: 1. [place] to environment 2. Hourly rounds addressing the [...] non-skid footwear 11. Teach patient and patient customer account representative to maintain environment for safety and engage in all aspects of fall prevention program Outcome: Progressing Note: Evaluation of progress towards goal: Patient free from falls and injury. Continue to monitor. Problem: Moderate - High Risk Fall Score Description: Clifford Fall Score of =/> 25 or indicated by [facility] Assessment Goal: Patient should be free from fall Description: Interventions: 1. [place] to environment 2. Hourly rounds addressing the [...] non-skid footwear 11. Teach patient and patient customer account representative to maintain environment for safety and [...] (cane, walker) within reach 19. Request patient customer account representative bring adaptive equipment/mobility aids from home or obtain and provide as needed 20. Consult pharmacy regarding effects of med's affecting mobility, cognition, and alternatives 21. Obtain physician order for PT if risk factors associated with mobility are present 22. Obtain physician order for OT as appropriate 23. Utilize diversional activities 24. Educate patient and patient customer account representative how to maintain a safe environment during visitation times (notify nurse prior to leaving bedside) 25. Consider appropriateness of medical or non-medical front desk coordinator 26. Set up voiding schedule as appropriate [...] days ago. She was evaluated by her artist woodblock who felt that vision loss was secondary [...] hemodynamically stable. Condition: stable Kristel Reid MD [facility] Problem: Low Risk Fall Score Description: Clifford Fall Score of 0 - 24 or indicated by [facility] Assessment Goal: Patient should be free from fall Description: Interventions: 1. [place] to environment 2. Hourly rounds addressing the [...] non-skid footwear 11. Teach patient and patient customer account representative to maintain environment for safety and engage in all aspects of fall prevention program Outcome: Progressing Note: Evaluation of progress towards goal: Patient remained free from falls. Will continue to utilized fall prevention measures. Problem: Pain Goal: Patient goal is pain score less than 4, able to rest, and participant in treatment plan as appropriate Description: INTERVENTIONS: 1. Encourage patient or legal customer account representative to report early pain and ask [...] per policy 9. Teach patient or legal customer account representative interventions for comforting Outcome: Progressing Note: [...] at the bedside 7. Instruct patient/ patient customer account representative about use of safety devices 8. Include patient/ patient customer account representative in decisions related to safety Outcome: [...] hygiene technique 7. Identify and instruct patient/patient customer account representative in use of appropriate isolation precautions for identified infection/symptoms 8. Provide and discuss with patient/patient customer account representative on educational MDRO sheet 9. Encourage and monitor nutritional status daily and consult appliances sample maker if indicated 10. Implement neutropenic guidelines as needed 11. Review exposure to history of communicable disease and recent travel history on admission 12. Encourage annual influenza vaccine 13. Encourage pneumonia vaccine Outcome: Progressing Note: Evaluation of progress towards goal: Patient afebrile, Monitoring labs. Problem: Knowledge Deficit Goal: Patient/patient customer account representative demonstrates understanding of disease process, treatment [...] Description: INTERVENTIONS: 1. Encourage patient or legal customer account representative to report early pain and ask [...] per policy 9. Teach patient or legal customer account representative interventions for comforting Outcome: Progressing Note: [...] at the bedside 7. Instruct patient/ patient customer account representative about use of safety devices 8. Include patient/ patient customer account representative in decisions related to safety Outcome: [...] hygiene technique 7. Identify and instruct patient/patient customer account representative in use of appropriate isolation precautions for identified infection/symptoms 8. Provide and discuss with patient/patient customer account representative on educational MDRO sheet 9. Encourage and monitor nutritional status daily and consult appliances sample maker if indicated 10. Implement neutropenic guidelines as [...] Description: INTERVENTIONS: 1. Encourage patient or legal customer account representative to report early pain and ask [...] per policy 9. Teach patient or legal customer account representative interventions for comforting Outcome: Progressing Note: [...] at the bedside 7. Instruct patient/ patient customer account representative about use of safety devices 8. Include patient/ patient customer account representative in decisions related to safety Outcome: [...] hygiene technique 7. Identify and instruct patient/patient customer account representative in use of appropriate isolation precautions for identified infection/symptoms 8. Provide and discuss with patient/patient customer account representative on educational MDRO sheet 9. Encourage and monitor nutritional status daily and consult appliances sample maker if indicated 10. Implement neutropenic guidelines as needed 11. Review exposure to history of communicable disease and recent travel history on admission 12. Encourage annual influenza vaccine 13. Encourage pneumonia vaccine Outcome: Progressing Note: Evaluation of progress towards goal: Patient receiving antibiotics as ordered. Continue to monitor. Problem: Knowledge Deficit Goal: Patient/patient customer account representative demonstrates understanding of disease process, treatment [...] be free from fall Description: Interventions: 1. [place] to environment 2. Hourly rounds addressing the [...] non-skid footwear 11. Teach patient and patient customer account representative to maintain environment for safety and [...] at the bedside 7. Instruct patient/ patient customer account representative about use of safety devices 8. Include patient/ patient customer account representative in decisions related to safety Outcome: [...] hygiene technique 7. Identify and instruct patient/patient customer account representative in use of appropriate isolation precautions for identified infection/symptoms 8. Provide and discuss with patient/patient customer account representative on educational MDRO sheet 9. Encourage and monitor nutritional status daily and consult appliances sample maker if indicated 10. Implement neutropenic guidelines as needed 11. Review exposure to history of communicable disease and recent travel history on admission 12. Encourage annual influenza vaccine 13. Encourage pneumonia vaccine Outcome: Progressing Note: Evaluation of progress towards goal: Patient has no signs and symptoms of infection. Problem: Low Risk Fall Score Description: Clifford Fall Score of 0 - 24 or indicated by [facility] Assessment Goal: Patient should be free from fall Description: Interventions: 1. [place] to environment 2. Hourly rounds addressing the [...] non-skid footwear 11. Teach patient and patient customer account representative to maintain environment for safety and engage in all aspects of fall prevention program Outcome: Progressing Note: Evaluation of progress towards goal: Patient remained free from falls. Will continue to utilized fall prevention measures. documented in this encounter [facility] 09-26-2023 Plan of care note Problem: Safety [...] at the bedside 7. Instruct patient/ patient customer account representative about use of safety devices 8. Include patient/ patient customer account representative in decisions related to safety Note: Evaluation of progress towards goal: No reports of injury during shift. Safety measures in place [facility] 09-25-2023 Plan of care note Problem: Low Risk Fall Score Description: Clifford Fall Score of 0 - 24 or indicated by [facility] Assessment Goal: Patient should be free from fall Description: Interventions: 1. [place] to environment 2. Hourly rounds addressing the [...] non-skid footwear 11. Teach patient and patient customer account representative to maintain environment for safety and engage in all aspects of fall prevention program Outcome: Progressing Note: Evaluation of progress towards goal: Patient remained free from falls. Will continue to utilized fall prevention measures. [facility] 09-25-2023 Progress note Formatting of t [...] - Sophia Rajan RN 09/25/23 1:09 PM [facility] 09-25-2023 Plan of care note Problem: Pain Goal: Patient goal is pain score less than 4, able to rest, and participant in treatment plan as appropriate Description: INTERVENTIONS: 1. Encourage patient or legal customer account representative to report early pain and ask [...] per policy 9. Teach patient or legal customer account representative interventions for comforting Outcome: Progressing Note: [...] at the bedside 7. Instruct patient/ patient customer account representative about use of safety devices 8. Include patient/ patient customer account representative in decisions related to safety Outcome: [...] hygiene technique 7. Identify and instruct patient/patient customer account representative in use of appropriate isolation precautions for identified infection/symptoms 8. Provide and discuss with patient/patient customer account representative on educational MDRO sheet 9. Encourage and monitor nutritional status daily and consult appliances sample maker if indicated 10. Implement neutropenic guidelines as needed 11. Review exposure to history of communicable disease and recent travel history on admission 12. Encourage annual influenza vaccine 13. Encourage pneumonia vaccine Outcome: Progressing Note: Evaluation of progress towards goal: Patient free from signs of infection. Afebrile. Continue to Monitor. Problem: Knowledge Deficit Goal: Patient/patient customer account representative demonstrates understanding of disease process, treatment [...] be free from fall Description: Interventions: 1. [place] to environment 2. Hourly rounds addressing the [...] non-skid footwear 11. Teach patient and patient customer account representative to maintain environment for safety and engage in all aspects of fall prevention program Outcome: Progressing Note: Evaluation of progress towards goal: Patient free from falls and injury. Continue to monitor. Problem: Moderate - High Risk Fall Score Description: Clifford Fall Score of =/> 25 or indicated by [facility] Assessment Goal: Patient should be free from fall Description: Interventions: 1. [place] to environment 2. Hourly rounds addressing the [...] non-skid footwear 11. Teach patient and patient customer account representative to maintain environment for safety and [...] (cane, walker) within reach 19. Request patient customer account representative bring adaptive equipment/mobility aids from home or obtain and provide as needed 20. Consult pharmacy regarding effects of med's affecting mobility, cognition, and alternatives 21. Obtain physician order for PT if risk factors associated with mobility are present 22. Obtain physician order for OT as appropriate 23. Utilize diversional activities 24. Educate patient and patient customer account representative how to maintain a safe environment during visitation times (notify nurse prior to leaving bedside) 25. Consider appropriateness of medical or non-medical front desk coordinator 26. Set up voiding schedule as appropriate (every 2 hours) Outcome: Progressing Note: Evaluation of progress towards goal: Patient free from falls and injury. Continue to monitor. [facility] [employer] 09-25-2023 Consult note Associated Order (s): IP CONSULT TO RHEUMATOLOGY Images from the original note were not included. 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 -No concern for RA or scleroderma given lack of clinical symptoms Discussed with attending Dr. Romero Shah PGY-5, Rheumatology CHIEF COMPLAINT: Visual loss HISTORY OF PRESENT ILLNESS: Jose David is a 78 y.o. White or female who presents with no significant past medical history presented to [facility] 09/24 for concerns of vision loss in left eye. Patient was evaluated by quality control associate on 09/19/2023 due to blurry vision left [...] concerns of giant cell arteritis. Initially at [facility] she was given Solu-Medrol 250 mg IV 1 dose and then transferred to [facility]. On presenting to [facility], she had complete vision loss in both eyes. She was started on IV Solu-Medrol 1000 mg for 3 days. She underwent bilateral temporal artery biopsy on 09/25/2023. During this admission she had workup done which showed positive SILVIA screen, mildly elevated rheumatoid factor at 21 and elevated anticentromere antibody. Anca ribosomal antibody, SSA, SSB, scleroderma antibody, Tiki 1, Mejia, CHICKEN STUFFER, anti dsDNA, anti chromatin were negative. PAST [...] of the major arterial structures in the [place]. The paranasal sinuses are clear. [...] of the major arterial structures in the [place]. The paranasal sinuses are clear. [...] IgG 992 635 - 1,741 mg/dL Free [place] Lt Chains 2.91 (H) 0.33 - 1.94 [...] I agree with the assessment and plan. [facility] Consult note Associated Order (s): IP CONSULT TO RHEUMATOLOGY Images from the original note were not included. 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 -No concern for RA or scleroderma given lack of clinical symptoms Discussed with attending Dr. Romero Shah PGY-5, Rheumatology CHIEF COMPLAINT: Visual loss HISTORY OF PRESENT ILLNESS: Jose David is a 78 y.o. White or female who presents with no significant past medical history presented to [facility] 1/31 for concerns of vision loss in left eye. Patient was evaluated by quality control associate on 09/19/2023 due to blurry vision left [...] concerns of giant cell arteritis. Initially at [facility] she was given Solu-Medrol 250 mg IV 1 dose and then transferred to [facility]. On presenting to [facility], she had complete vision loss in both eyes. She was started on IV Solu-Medrol 1000 mg for 3 days. She underwent bilateral temporal artery biopsy on 09/25/2023. During this admission she had workup done which showed positive SILVIA screen, mildly elevated rheumatoid factor at 21 and elevated anticentromere antibody. Anca ribosomal antibody, SSA, SSB, scleroderma antibody, Tiki 1, Mejia, CHICKEN STUFFER, anti dsDNA, anti chromatin were negative. PAST [...] of the major arterial structures in the [place]. The paranasal sinuses are clear. [...] of the major arterial structures in the [place]. The paranasal sinuses are clear. [...] IgG 992 635 - 1,741 mg/dL Free [place] Lt Chains 2.91 (H) 0.33 - 1.94 [...] presents to the emergency department from her artist woodblock's office. She was being evaluated with an artist woodblock for possible giant cell arthritis. She said [...] questions or concerns regarding management. ALANNA Guzman [facility] [place] Office/After hours: [phone] ALANNA Guzman 09/24/23 1521 Associated Order(s): IP CONSULT TO SPIRITUAL CARE Summary: Spiritual Care Consult for Advance Directive Assistance Spiritual Care Consult for Advance Directive Assistance Advance Directive: Health Sciences Program Coordinator provided patient with education on the need for advance directives and a copy of the [place] Advance Directive packet. Health Sciences Program Coordinator assisted patient in completing the advance directives. Patient completed and signed a healthcare power of traffic law attorney. Patient was given the original and a copy. One copy placed in patient's chart. A horticulture professor is available 17/03 to offer spiritual and emotional support and may be reached through the [facility] telescope operator at [phone]. Associated Order(s): IP CONSULT TO OPHTHALMOLOGY Date: Reason for consult: I have been asked to evaluate the eyes of this 78-year-old lady who noticed sudden onset of foggy in the left eye 4 days ago this rapidly progressed to complete loss of vision in the left eye.. She saw an quality control associate who indicated to her that she had [...] the patient was given a referral to artist woodblock. Over the weekend patients vision in left eye continued to worsen and eventually lost all vision in left eye. Patient was seen by artist woodblock 09/22/2023 and time she would decreased vision also in her right eye. It was recommended that she go straight to the emergency department, for concern for giant cell arteritis. Initially she went to [facility] where they gave her Solu-Medrol 250 mg IV 1 dose and then transferred her to [facility]. 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 Caitie Wilder PA-C [facility] [address] [place] [id number] September 23, 2023, 10:20 AM Please note that portions of this note were generated using voice recognition M*Modal dictation software. Although every effort was made to ensure the accuracy of this automated nuclear waste process operator, some errors in nuclear waste process operator may have occurred. I have personally performed [...] need to start aspirin Joni PIZANO M.D. [facility] Day time contact: After hours answering service: [phone] [place] [id number] Associated Order(s): IP CONSULT TO NEUROLOGY Images from the original note were not included. [facility] Neurology General Neurology Consultation Note Consult Neurology Service: [phone] Primary Team: SAMUEL Chief Complaint and Reason [...] was given referral to eye center in [place]?, on Friday and Friday, vision on the left eye worsened significantly and she lost her vision on the left eye. On Friday 09/22, patient came to [place] to see an eye doctor, who asked her to go to the ED. patient initially went to [facility], given Solu-Medrol 250 mg IV once, transferred to [facility] for further workup and ophthalmology evaluation. According to the patient, her right eye vision worsened significantly on Friday, and she lost her vision on both eyes. Patient had no past medical history, she has not taking any scheduled medications, patient lives with her daughter, she is driving and working. Walking with no assistive devices. Upon initial assessment in [facility], patient had complete vision loss on [...] Reportedly ESR and CRP were elevated at [facility] Imaging: CTH, head and neck CTA done at [facility], reportedly unremarkable Other Testing: None [...] follow Carlitos Caraballo MD PGY-3, Neurology Resident [facility] Staffed with: (Dr. Byrne) This patient is being followed by the Neurology Resident service. Contact attending directly during these hours: Friday to 7:30-8:30 A.M. to Friday 12-1:00 p.m. Primary Neurology service: [phone] Consult neurology service: [phone] Resident Stroke Service: [phone] If the patient belongs to the Stroke [...] Pizano MD, PhD documented in this encounter [facility] 09-25-2023 Procedure note Operative Note Date: [...] days ago. She was evaluated by her artist woodblock who felt that vision loss was secondary [...] hemodynamically stable. Condition: stable Kristel Reid MD [facility] 09-25-2023 Attending History and physical note HISTORY AND PHYSICAL INTERVAL NOTE: Jose David 1945 [id number] H&P reviewed. The patient was examined and there are no changes to the H&P. Kristel Reid MD Source Note - Faisal Rascon APRN-[facility] - 09/24/2023 10:37 AM EST Images from the original note were not included. Vascular History and Physical Examination/Consultation Note Reason for Consultation Bilateral temporal artery biopsy, concern for giant cell arteritis History and Present Illness Jose David is a 78 y.o. White or female who presents to the emergency department from her artist woodblock's office. She was being evaluated with an artist woodblock for possible giant cell arthritis. She said [...] questions or concerns regarding management. ALANNA Guzman [facility] [place] Office/After hours: [phone] ALANNA Guzman 09/24/23 1521 ALANNA Guzman 09/25/23 0730 [facility] 09-25-2023 History and physical note HISTORY AND PHYSICAL INTERVAL NOTE: Jose David 1945 [id number] H&P reviewed. The patient was examined and [...] presents to the emergency department from her artist woodblock's office. She was being evaluated with an artist woodblock for possible giant cell arthritis. She said [...] questions or concerns regarding management. ALANNA Guzman [facility] [place] Office/After hours: [phone] ALANNA Guzman 09/24/23 1521 ALANNA Guzman 09/25/23 4730 Images from the original note were not included. [facility] History and Physical 09/23/2023 Patient Name: Jsoe David : 1945 Chief Complaint Vision loss [...] on ophthalmology recommendation, patient saw Ophthalmology in [place] today evaluated for possible giant cell arthritis, [...] pedis pulses present and equal bilaterally Skin: [place], warm, dry; no rashes or lesions Neurologic: [...] Electronically signed by: MD Nandini PAREDES M.D. [facility] This note was completed using a voice nuclear waste process operator system. Every effort was made to ensure accuracy. However, inadvertent computerized nuclear waste process operator errors may be present. documented in this encounter [facility] 09-24-2023 Plan of care note Problem: Low Risk Fall Score Description: Clifford Fall Score of 0 - 24 or indicated by [facility] Assessment Goal: Patient should be free from fall Description: Interventions: 1. [place] to environment 2. Hourly rounds addressing the [...] non-skid footwear 11. Teach patient and patient customer account representative to maintain environment for safety and engage in all aspects of fall prevention program Outcome: Progressing Note: Evaluation of progress towards goal: Patient remained free from falls. Will continue to utilized fall prevention measures. [facility] 09-24-2023 Plan of care note Problem: Pain Goal: Patient goal is pain score less than 4, able to rest, and participant in treatment plan as appropriate Description: INTERVENTIONS: 1. Encourage patient or legal customer account representative to report early pain and ask [...] per policy 9. Teach patient or legal customer account representative interventions for comforting Outcome: Progressing Note: [...] at the bedside 7. Instruct patient/ patient customer account representative about use of safety devices 8. Include patient/ patient customer account representative in decisions related to safety Outcome: [...] hygiene technique 7. Identify and instruct patient/patient customer account representative in use of appropriate isolation precautions for identified infection/symptoms 8. Provide and discuss with patient/patient customer account representative on educational MDRO sheet 9. Encourage and monitor nutritional status daily and consult appliances sample maker if indicated 10. Implement neutropenic guidelines as needed 11. Review exposure to history of communicable disease and recent travel history on admission 12. Encourage annual influenza vaccine 13. Encourage pneumonia vaccine Outcome: Progressing Note: Evaluation of progress towards goal: Patient afebrile, Monitoring labs. Problem: Knowledge Deficit Goal: Patient/patient customer account representative demonstrates understanding of disease process, treatment plan, medications, and discharge instructions Description: INTERVENTIONS 1. Complete learning assessment and assess knowledge base 2. Provide teaching at level of understanding 3. Provide teaching via preferred learning method(s) Outcome: Progressing Note: Evaluation of progress towards goal: POC reviewed with patient, verbalizes understanding [facility] [employer] 09-24-2023 Progress note Formatting of t his [...] - Sophia Rajan RN 09/24/23 10:57 AM [facility] [employer] 09-24-2023 Consult note Formatting of th is note is different from the original. Images from the original note were not included. Vascular History and Physical Examination/Consultation Note Reason for Consultation Bilateral temporal artery biopsy, concern for giant cell arteritis History and Present Illness Jose David is a 78 y.o. White or female who presents to the emergency department from her artist woodblock's office. She was being evaluated with an artist woodblock for possible giant cell arthritis. She said [...] questions or concerns regarding management. ALANNA Guzman [facility] [place] Office/After hours: [phone] ALANNA Guzman 09/24/23 1521 [facility] [employer] Work Phone: 09-23-2023 Plan of care note Problem: Pain Goal: Patient goal is pain score less than 4, able to rest, and participant in treatment plan as appropriate Description: INTERVENTIONS: 1. Encourage patient or legal customer account representative to report early pain and ask [...] per policy 9. Teach patient or legal customer account representative interventions for comforting Outcome: Progressing Note: [...] at the bedside 7. Instruct patient/ patient customer account representative about use of safety devices 8. Include patient/ patient customer account representative in decisions related to safety Outcome: [...] hygiene technique 7. Identify and instruct patient/patient customer account representative in use of appropriate isolation precautions for identified infection/symptoms 8. Provide and discuss with patient/patient customer account representative on educational MDRO sheet 9. Encourage and monitor nutritional status daily and consult appliances sample maker if indicated 10. Implement neutropenic guidelines as needed 11. Review exposure to history of communicable disease and recent travel history on admission 12. Encourage annual influenza vaccine 13. Encourage pneumonia vaccine Outcome: Progressing Note: Evaluation of progress towards goal: monitor for signs and symptoms of infection [facility] [employer] 09-23-2023 Plan of care note Problem: Pain Goal: Patient goal is pain score less than 4, able to rest, and participant in treatment plan as appropriate Description: INTERVENTIONS: 1. Encourage patient or legal customer account representative to report early pain and ask [...] per policy 9. Teach patient or legal customer account representative interventions for comforting Outcome: Progressing Note: [...] at the bedside 7. Instruct patient/ patient customer account representative about use of safety devices 8. Include patient/ patient customer account representative in decisions related to safety Outcome: [...] hygiene technique 7. Identify and instruct patient/patient customer account representative in use of appropriate isolation precautions for identified infection/symptoms 8. Provide and discuss with patient/patient customer account representative on educational MDRO sheet 9. Encourage and monitor nutritional status daily and consult appliances sample maker if indicated 10. Implement neutropenic guidelines as needed 11. Review exposure to history of communicable disease and recent travel history on admission 12. Encourage annual influenza vaccine 13. Encourage pneumonia vaccine Outcome: Progressing Note: Evaluation of progress towards goal: Patient receiving antibiotics as ordered. Continue to monitor. Problem: Knowledge Deficit Goal: Patient/patient customer account representative demonstrates understanding of disease process, treatment [...] of 0 - 24 or indicated by [facility] Assessment Goal: Patient should be free from fall Description: Interventions: 1. [place] to environment 2. Hourly rounds addressing the [...] non-skid footwear 11. Teach patient and patient customer account representative to maintain environment for safety and engage in all aspects of fall prevention program Outcome: Progressing Note: Evaluation of progress towards goal: Patient free from falls and injury. Continue to monitor. [employer] 09-23-2023 Consult note Associated Order (s): IP CONSULT TO SPIRITUAL CARE Summary: Spiritual Care Consult for Advance Directive Assistance Spiritual Care Consult for Advance Directive Assistance Advance Directive: Health Sciences Program Coordinator provided patient with education on the need for advance directives and a copy of the [place] Advance Directive packet. Health Sciences Program Coordinator assisted patient in completing the advance directives. Patient completed and signed a healthcare power of traffic law attorney. Patient was given the original and a copy. One copy placed in patient's chart. A horticulture professor is available 17/03 to offer spiritual and emotional support and may be reached through the [facility] telescope operator at [phone]. [employer] 09-23-2023 Progress note Formatting of t his [...] care - LIANE KEN 09/23/23 2:07 PM [facility] 09-23-2023 Progress note Formatting of t his note might be different from the original. Consulted for MAUREEN to rule out embolic process in setting of sudden vision loss. Discussed with neurology, recommend surface echo with bubble study prior to consideration of MAUREEN. If TTE unremarkable and continued concerns, please let us know. ALANNA Rosario 09/23/23 1300 [facility] Work Phone: 09-23-2023 Consult note Associated Order (s): IP CONSULT TO OPHTHALMOLOGY Date: Reason for consult: I have been asked to evaluate the eyes of this 78-year-old lady who noticed sudden onset of foggy in the left eye 4 days ago this rapidly progressed to complete loss of vision in the left eye.. She saw an quality control associate who indicated to her that she had [...] is indicated. Thanks Montana Bartlett MD, FACS. [facility] [employer] Work Phone: 09-23-2023 Consult note Associated Order [...] the patient was given a referral to artist woodblock. Over the weekend patients vision in left eye continued to worsen and eventually lost all vision in left eye. Patient was seen by artist woodblock 09/22/2023 and time she would decreased vision also in her right eye. It was recommended that she go straight to the emergency department, for concern for giant cell arteritis. Initially she went to [facility] where they gave her Solu-Medrol 250 mg IV 1 dose and then transferred her to [facility]. 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 Caitie Wilder PA-C [facility] [address] [place] [address] September 23, 2023, 10:20 AM Please note that portions of this note were generated using voice recognition M*Modal dictation software. Although every effort was made to ensure the accuracy of this automated nuclear waste process operator, some errors in nuclear waste process operator may have occurred. I have personally performed [...] need to start aspirin Joni PIZANO M.D. [facility] Day time contact: After hours answering service: [phone] [place] [address] [employer] Work Phone: 09-23-2023 Plan of care note [...] at the bedside 7. Instruct patient/ patient customer account representative about use of safety devices 8. Include patient/ patient customer account representative in decisions related to safety Outcome: [...] hygiene technique 7. Identify and instruct patient/patient customer account representative in use of appropriate isolation precautions for identified infection/symptoms 8. Provide and discuss with patient/patient customer account representative on educational MDRO sheet 9. Encourage and monitor nutritional status daily and consult appliances sample maker if indicated 10. Implement neutropenic guidelines as needed 11. Review exposure to history of communicable disease and recent travel history on admission 12. Encourage annual influenza vaccine 13. Encourage pneumonia vaccine Outcome: Progressing Note: Evaluation of progress towards goal: Patient has no signs and symptoms of infection. Problem: Low Risk Fall Score Description: Clifford Fall Score of 0 - 24 or indicated by [facility] Assessment Goal: Patient should be free from fall Description: Interventions: 1. [place] to environment 2. Hourly rounds addressing the [...] non-skid footwear 11. Teach patient and patient customer account representative to maintain environment for safety and engage in all aspects of fall prevention program Outcome: Progressing Note: Evaluation of progress towards goal: Patient remained free from falls. Will continue to utilized fall prevention measures. [facility] [employer] [facility] 09-23-2023 Consult note Associated Order (s): IP CONSULT TO NEUROLOGY Images from the original note were not included. [facility] Neurology General Neurology Consultation Note Consult Neurology Service: [phone] Primary Team: SAMUEL Chief Complaint and Reason [...] was given referral to eye center in [place]?, on Friday and Friday, vision on the left eye worsened significantly and she lost her vision on the left eye. On Friday 09/22, patient came to [place] to see an eye doctor, who asked her to go to the ED. patient initially went to [facility], given Solu-Medrol 250 mg IV once, transferred to [facility] for further workup and ophthalmology evaluation. According to the patient, her right eye vision worsened significantly on Friday, and she lost her vision on both eyes. Patient had no past medical history, she has not taking any scheduled medications, patient lives with her daughter, she is driving and working. Walking with no assistive devices. Upon initial assessment in [facility], patient had complete vision loss on [...] Reportedly ESR and CRP were elevated at [facility] Imaging: CTH, head and neck CTA done at [facility], reportedly unremarkable Other Testing: None [...] follow Carlitos Caraballo MD PGY-3, Neurology Resident [facility] Staffed with: (Dr. Byrne) This patient is being followed by the Neurology Resident service. Contact attending directly during these hours: Friday to 7:30-8:30 A.M. to Friday 12-1:00 p.m. Primary Neurology service: [phone] Consult neurology service: [phone] Resident Stroke Service: [phone] If the patient belongs to the Stroke [...] follow and update Sandy Pizano MD, PhD [employer] Work Phone: 09-23-2023 History and physical note Images from the original note were not included. [facility] History and Physical 09/23/2023 [...] on ophthalmology recommendation, patient saw Ophthalmology in [place] today evaluated for possible giant cell arthritis, [...] pedis pulses present and equal bilaterally Skin: [place], warm, dry; no rashes or lesions Neurologic: [...] Electronically signed by: MD Nandini PAREDES M.D. [facility] This note was completed using a voice nuclear waste process operator system. Every effort was made to ensure accuracy. However, inadvertent computerized nuclear waste process operator errors may be present. [facility] Evaluation note Diagnosis Vision blurred- Primary Other specified visual disturbances B12 deficiency Thrombocytosis Essential thrombocythemia Vision blurred Other specified visual disturbances Temporal arteritis ([facility]) Giant cell arteritis Stroke-like symptoms [facility] Diagnosis Onset Date Resolution Status GERD (gastroesophageal reflux disease) acute Hospital discharge follow-up acute Temporal arteritis acute Vision loss, bilateral acute [facility] Work Phone: Evaluation note* Diagnosis Giant cell arteritis ([facility])- Primary Giant cell arteritis [facility] Normocytic anemia- Primary Unspecified anemia Thrombocytosis Essential thrombocythemia [facility] Giant cell arteritis ([facility])- Primary [...] FoundDocuments on File Type Date Recorded Patient [employer]ation Durable Power of Supervisor [employer] 09/23/2023 4:17 PM [facility] er of Supervisor [employer] Latest Code Status on File Code Status Date Activated Date Inactivated Comments Full Code 09/23/2023 12:33 AM 09/26/2023 7:44 PM Healthcare Agents on File Name Relationship Healthcare Agent Relationshi p Communication Mike David Son Health Care Agent [id number] (Home) Malinda Brito Daughter First Alternate Health Care Agent Documents on File Type Date Recorded Patient [employer] anation Durable Power of Supervisor [employer] 09/23/2023 4:17 PM [facility] er of Supervisor [employer] Latest Code Status on File Code Status [...] Documents on File Type Date Recorded Patient [employer] anation Durable Power of Supervisor [employer] 10/03/2023 8:14 AM Durable Power of Supervisor [employer] 09/23/2023 4:17 PM [facility] er of Supervisor [employer] Healthcare Agents on File Name Relationship Healthcare Agent Relationshi p Communication Mike David Son Health Care Agent Malinda Brito Daughter First Alternate Health Care Agent Healthcare Agents on File Name Relationship [facility] Mike David Son Health Care Agent Malinda Brito Daughter First Alternate Health Care Agent Reason for Referral Specialty Diagnoses / Procedures Referred By Jessica ga Referred To Contact Diagnoses B12 deficiency Thrombocytosis Vision blurred Temporal arteritis ([facility]) Procedures Follow-up with primary care provider Bart Milian MD [address] [place] [id number] Referral ID Status Reason Start Date Expiration Date V isits Requested Visits Authorized [id number] Pending Review 09/26/2023 09/25/2024 1 1 Specialty Diagnoses / Procedures Referred By Jessica ga Referred To Contact Procedures Adult diet Bart Milian MD [address] [place] [id number] Referral ID Status Reason Start Date Expiration Date V isits Requested Visits Authorized [id number] Pending Review 09/26/2023 09/25/2024 1 1 Chief Complaint and Reason for Visit Chief Complaint ESTABLISH Reason for Visit GERD (gastroesophage al reflux disease) Hospital discharge follow-up Temporal arteritis Vision loss, bilateral Additional Source Comments INFORMATION SOURCE (unrecogn ized section and content) DATE CREATED AUTHOR 11/18/2021 [facility] DATE CREATED AUTHOR AUTHOR'S ORGANIZ ATION 01/31/2023 [facility] DATE CREATED AUTHOR AUTHOR'S ORGANIZ ATION 04/15/2023 [facility] DATE CREATED AUTHOR AUTHOR'S ORGANIZ ATION 10/04/2023 [facility] DATE CREATED AUTHOR AUTHOR'S ORGANIZ ATION 10/24/2023 [facility] DATE CREATED AUTHOR AUTHOR'S ORGANIZ ATION 11/08/2023 [facility] DATE CREATED AUTHOR AUTHOR'S ORGANIZ ATION 12/28/2023 [facility] Reason for Visit (unrecogniz ed section and content) Specialty Diagnoses / Procedures Referred By Jessica ga Referred To Contact Diagnoses Vision blurred Stroke-like symptoms CVA symptoms Tono Pan MD [address] [place] [address] Referral ID Status Reason Start Date Expiration Date Visits Re quested Visits Authorized [id number] 1 1 Reason Onset Date Comments Hospital [...] Provider) 0855 (Given - Provider: Caryn Briceno, ASHIA) methylPREDNISolone sodium succinate (Solu-MEDROL) 1,000 mg in [...] mg/dL after initial treatment, repeat treatment. 612 ([facility] Hold - Provider: Automatic Transfer Provider - Reason: Patient not available)115 ([facility] Unhold - Provider: Automatic Transfer Provider) dextrose 5 % (D5W) infusion 100 mL/hr, intravenous, Continuous PRN, blood glucose less than 70 mg/dL, Starting on Fri09/23/23 at 0032, Use immediately following dextrose 50% or glucagon treatment for patients who are unconscious or NPO. Contact prescriber for additional orders. If blood glucose is not greater than 70 mg/dL after initial treatment, repeat treatment. 612 ([facility] Hold - Provider: Automatic Transfer Provider - Reason: Patient not available)115 ([facility] Unhold - Provider: Automatic Transfer Provider) dextrose [...] treatment. VESICANT (RED) Warning: HYPERTONIC solution. 612 ([facility] Hold - Provider: Automatic Transfer Provider - Reason: Patient not available)115 ([facility] Unhold - Provider: Automatic Transfer Provider) fentaNYL [...] mg/dL after initial treatment, repeat treatment. 0613 ([facility] Hold - Provider: Automatic Transfer Provider - Reason: Patient not available)1151 ([facility] Unhold - Provider: Automatic Transfer Provider) ondansetron (PF) (ZOFRAN) injection 4 mg 4 mg, intravenous, Every 8 hours PRN, nausea, vomiting, Starting on Fri09/23/23 at 0032, Administer over 2-5 minutes. 0613 ([facility] Hold - Provider: Automatic Transfer Provider - Reason: Patient not available)1151 ([facility] Unhold - Provider: Automatic Transfer Provider) sennosides-docusate sodium (SENOKOT-S) 8.6-50 mg 1 tablet 1 tablet, oral, Every 12 hours PRN, constipation, Starting on Fri09/23/23 at 0032 0613 ([facility] Hold - Provider: Automatic Transfer Provider - Reason: Patient not available)1151 ([facility] Unhold - Provider: Automatic Transfer Provider) sodium [...] use, Starting on Fri09/23/23 at 0032 0613 ([facility] Hold - Provider: Automatic Transfer Provider - Reason: Patient not available)1151 ([facility] Unhold - Provider: Automatic Transfer Provider) sodium chloride 0.9 % flush bag 25 mL, intravenous, at 100 mL/hr, Administer over 15 Minutes, As needed, line care, line care after IVPB administration, Starting on Fri09/23/23 at 0032 0613 ([facility] Hold - Provider: Automatic Transfer Provider - Reason: Patient not available)1151 ([facility] Unhold - Provider: Automatic Transfer Provider) sodium chloride 0.9 % infusion 20 mL/hr, intravenous, Continuous PRN, to maintain patency of lines, Starting on Fri09/23/23 at 0032 1008 (Restarted - Provider: Kimberly Chin RN) 0613 ([facility] Hold - Provider: Automatic Transfer Provider - Reason: Patient not available)1151 ([facility] Unhold - Provider: Automatic Transfer Provider) sodium chloride 0.9% (NS) irrigation bottle (CANCELED) As needed, Starting on Carrie 09/25/23 at 0807, Intra-op 0807 (Given - Provider: Kristel Reid MD - Comment: GIVEN TO [employer]) Care Teams (unrecognized sec tion and content) Community Arts Officer Relationship Specialty Start Date End Date John Patel DO [address] [place] [address] PCP - General 01/23/17 Community Arts Officer Relationship Specialty Start Date End Date John Patel DO [address] [place] [id number] PCP - General 01/23/17 Team Status: Active Member Role Status Dates Giovanna Graf APRN [employer] Primary Care Provider Active Team Status: Inactive Member Role Status Dates Giovanna Graf APRN [employer] Primary Care Provider, Attending Provider Active Start: October 16, 2023 End: October 16, 2023 Community Arts Officer Relationship Specialty Start Date End Date Giovanna Graf APRN-[employer] [address] [place] [id number] PCP - General Nurse Practitioner 10/10/23 Community Arts Officer Relationship Specialty Start Date End Date Giovanna Graf APRLOLA [address] [facility] [place] [address] PCP - General Nurse Practitioner 10/10/23 Goals [...] BE BASED ON THE PRIMARY CLINICAL RECORDS. [employer] [facility]. provides no warranty or guarantee of the accuracy or completeness of information in this document.
[2023-12-29 09:16] LABS: Percent Iron Saturation 51.5 %
== END 2023-12-29 07:53 | disposition home or self-care (01) ==
LOC: LAB 07:54
PROVIDERS: PCP Nurse Practitioner Family
DX: M31.6 Other giant cell arteritis (principal); R29.90 Unspecified symptoms and signs involving the nervous system; H53.8 Other visual disturbances; D64.9 Anemia, unspecified
CPT/HCPCS: 36415; 82728; 83540; 83550

== ENCOUNTER 2024-01-08 17:47 | Emergency (ER) | payer MEDICARE, SELFPAY ==
[2024-01-08 18:06] VITALS: BP 152/91; PULSE 103; TEMP 36.6; O2SAT 96; BMI 30.2
--- OUTSIDE RECORDS SUMMARY | 2024-01-08 18:06 | XMS_ITS | CCD ---
Author Organization [facility] Care Team Providers Care Physician Executive Name Role Phone LEAH, DR PATO Perez Admitting Unavailalonso e LEAH, DR PATO Perez Consulting Unavailabl e LEAH, DR PATO Perez Attending Unavailabl e JORGE, DR BECKHAM Primary Care Unavailable SHANTELL GARCIA Consulting Unavailable CHANEL ., DR NICHOLAS Attending Unavailable KARAN JENKINS Consulting Unavailable JORGE, DR BECKHAM Primary Care Unavailable CHANEL ., DR NICHOLAS Admitting Unavailable LADI LOPEZ Consulting Unavailable Tai SENIOR, Naomy Gordon Attending Unavailable Giedraitis , Andvolodymyr Gordon Attending Unavailable Giedraitis , Andrius Heidi Attending Unavailable Giedraitis , Andrius Gordon Attending Unavailable Giedraitis , Andrius Heidi Attending Unavailable Giedraitis , Andrius Gordon Attending Unavailable John Patel DO Primary Care Provider TONO PAN Admitting Unavailable TONO PAN Attending Unavailable YOEL GAVIN Referring Unavailable JOHN PATEL Primary Care Unavailable MONTANA BARTLETT Consulting Unavailable ERA BYRNE Consulting Unavailable JOSE SHAW Consulting Unavailable GONZALES CARRILLO Consulting Unavailable MOUNA KURTZ Consulting Unavailable JT JASSO I Consulting Unavailable CARLTIOS CARABALLO Referring Unavail able JOHN PATEL Primary Care Unavailable TREVIN LÓPEZ Referring Unavailable JOHN PATEL Primary Care Unavailable RICKIE STEWART Attending Unavailable JOHN PATEL Primary Care Unavailable Lesia [employer] 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, 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 Primary [facility] ALLIE HOSKINS Attending Unavailable JOHN PATEL Referring Unavailable GIOVANNA GRAF Primary Care Unavailable SALENA OCHOA Attending Unavailable HOUSE, JOHN P Referring Unavailable MARIANARGIOVANNA Primary Care Unavailable HOUSE, JOHN P Referring Unavailable HOUSE, JOHN P Primary Care Unavailable HOUSE, JOHN P Referring Unavailable HOUSE, JOHN P Primary Care Unavailable HOUSE, JOHN P Referring Unavailable HOUSE, JOHN P Primary Care Unavailable MOUNA BAUTISTA Attending Unavailable HOUSE, JOHN P Referring Unavailable ROHLIANAACHERGIOVANNA Primary Care Unavailable JT JASSO I Attending Unavailable ALTOJT ESPANA I Attending Unavailable Allergies Allergy Classification Reported Allergen(s) Allergy Type Date of Onset Reaction(s) Facility (1 source) Penicillins Drug allergy (disorder) [facility] Repository (10 sources) Penicillin; Translations: [PENICILLIN] Drug Allergy Confusion, Fever [facility] Medications Current Medications Medication Drug Class(es) Dates Sig (Normalized) Sig (Original) acetaminophen 500 mg oral capsule (10 sources) Start: 10-16-2023 take 500 mg by mouth every six hours Acetaminophen Active 500 MG PO Every 6 hours October 16, 2023 1:00am Start: 09-23-2023 End: 09-26-2023 take 4 g [...] aspirin 81 mg delayed release oral tablet (7 sources) Platelet Aggregation Inhibitor, Nonsteroidal Anti-inflammatory Drug Start: 09-26-2023 End: 10-26-2023 take 81 mg by mouth once daily Aspirin Active 81 MG PO Daily October 16, 2023 1:00am ferrous sulfate 325 mg delayed release oral [...] with meals. 180 tablet 1 11/06/2023 Active fluticasone propionate 0.05 mg/actuat metered dose nasal spray (1 source) Corticosteroid Start: 12-29-2023 take 1 spray(s) nasal route twice daily Fluticasone Propionate (Flonase Allergy Relief) 50 mcg/actuation spray,suspension Active 1 SPRAY INTRANASAL Twice daily December 29, 2023 12:00am administer into each nostril predniSONE 20 mg oral tablet (8 sources) Start: 10-16-2023 take 60 mg by mouth once daily Prednisone Active 60 MG PO Daily October 16, 2023 1:00am Start: 09-27-2023 End: 10-27-2023 take 3 tablets by mouth once daily at breakfast predniSONE (DELTASONE) 20 mg tablet Take 3 tablets (60 mg total) by mouth daily with breakfast for 30 days. 90 tablet 0 09/27/2023 10/27/2023 Active Start: 09-26-2023 End: 09-26-2023 predniSONE (DELTASONE) table t 60 mg sulfamethoxazole 800 mg / trimethoprim 160 mg oral tablet (8 sources) Dihydrofolate Reductase Inhibitor Antibacterial, Sulfonamide Antimicrobial Start: 10-16-2023 take 1 tablet by mouth three times daily Sulfamethoxazole-Trimethoprim (Bactrim Ds) 800-160 mg tablet Active 1 TAB PO Three times daily October 16, 2023 1:00am Start: 09-29-2023 End: 10-29-2023 take 1 tablet by mouth three times weekly sulfamethoxazole-trimethoprim (BACTRIM D S) 800-160 mg per tablet Take 1 tablet by mouth 3 (three) times a week for 30 days. 12 tablet 0 09/29/2023 10/29/2023 Active Start: 09-26-2023 End: 09-26-2023 sulfamethoxazole-trimethopri m (BACTRIM DS) 800-160 mg tablet 1 tablet vitamin b12 1 mg oral capsule (8 sources) Vitamin B12 Start: 10-16-2023 take 1000 ug by mouth once daily Cyanocobalamin (Vitamin B-12) Active 1000 MCG PO Daily October 16, 2023 1:00am Start: 09-23-2023 End: 10-27-2023 take 1 tablet by mouth in the morning cyanocobalamin 1000 MCG tablet Indications: B12 deficiency Take 1 tablet (1,000 mcg total) by mouth in the morning for 30 days. 30 tablet 0 09/27/2023 10/27/2023 Active Completed/Discontinued Medications Medication Drug Class(es) Dates Sig (Normalized) Sig (Original) ciprofloxacin 500 mg oral tablet (2 sources) Quinolone Antimicrobial Start: 06-24-2018 End: 07-01-2018 take 500 mg by mouth twice daily Ciprofloxacin Hcl Discontinued 500 MG PO Twice daily 14 June 24, 2018 12:00am July 01, 2018 1:02am docusate sodium 50 mg / sennosides, alf 8.6 mg oral tablet (1 source) Start: [...] minutes. oxybutynin chloride 5 mg oral tablet (2 sources) Cholinergic Muscarinic Antagonist Start: 06-24-2018 End: 10-16-2023 take 5 mg by mouth twice daily Oxybutynin Chloride Discontinued 5 MG PO Twice daily June 24, 2018 12:00am October 16, 2023 12:13pm 125 ml sodium chloride 9 mg/ml prefilled [...] Documented Date Episodic/Chronic Blindness and vision defects (4 sources) Bilateral visual impairment; Translations: [Unqualified visual [...] [Anemia, unspecified] Onset: 11-06-2023 Episodic Esophageal disorders (4 sources) Gastroesophageal reflux disease; Translations: [Gastro-esophageal reflux disease without esophagitis] 10-16-2023 Chronic Neoplasms of unspecified nature or uncertain behavior (4 sources) Thrombocytosis; Translations: [Thrombocytosis] Onset: 11-06-2023 09-26-2023 Episodic Nutritional deficiencies (2 sources) Cobalamin deficiency; Translations: [Deficiency of other specified B group vitamins] Onset: 09-23-2023 09-23-2023 Episodic Other aftercare (2 sources) Post-discharge follow-up; Translations: [Encounter for follow-up examination after completed treatment for conditions other than malignant neoplasm] 10-16-2023 Episodic Other aftercare (2 sources) Encounter for follow-up examination after completed treatment [...] involving the nervous system] Onset: 09-23-2023 Episodic Otitis media and related conditions (4 sources) Dysfunction of eustachian tube; Translations: [Unspecified Eustachian tube disorder, unspecified ear] 12-29-2023 Episodic Spondylosis; intervertebral disc disorders; other back problems (1 source) Spondylosis without myelopathy or radiculopathy, cervical region; Translations: [SPONDYLS W/O MYELO-/RADICULOP CERV] Onset: 12-26-2022 Chronic Spondylosis; intervertebral disc disorders; other back problems (4 sources) Dorsalgia, unspecified; Translations: [Spinal stenosis, cervical region] Onset: 12-25-2022 Episodic Systemic lupus erythematosus and connective tissue disorders (12 sources) Temporal arteritis; Translations: [Other giant cell [...] [PAIN IN RIGHT KNEE] Onset: 04-25-2022 Episodic Residual codes; unclassified (1 source) Pain, unspecified; Translations: [Pain, unspecified] Onset: 09-24-2023 Episodic Sprains and strains (1 source) Sprain of unspecified site of right knee, initial encounter; Translations: [SPRAIN UNS SITE RT KNEE INITIAL] Onset: 04-26-2022 Episodic Results Test Name Value Interpretation Reference Range Facility Basophils Auto (Bld) [#/Vol] on 12-29-2023 Basophils (Bld) [#/Vol] 0.0 10 3/uL 0.0-0.1 [facility] Basophils/100 WBC Auto (Bld) on 12-29-2023 Basophils/100 WBC (Bld) 0.3 % 0.2-2.0 [facility] Eosinophils/100 WBC Auto (Bl d)on 12-29-2023 Eosinophils/100 WBC (Bld) 0.6 % 0.9-7.0 [facility] Erythrocyte distribution wid th Auto (RBC) [Ratio]on 12-29-2023 Erythrocyte distribution width (RBC) [Ratio] 14.8 % 11.0-15.0 [facility] Hematocrit Auto (Bld) [Volum e fraction]on 12-29-2023 Hematocrit (Bld) [Volume fraction] 39.8 % 36.0-48.0 [facility] Hemoglobin [Mass/volume] in Bloodon 12-29-2023 Hemoglobin (Bld) [Mass/Vol] 12.6 g/dL 12.0-16.0 [facility] Iron binding capacity [Mass/ volume] in Serum or Plasmaon 12-29-2023 Iron binding capacity [Mass/Vol] 241.0 ug/dL 250.0-450.0 [facility] Iron saturation [Mass Fracti on] in Serum or Plasmaon 12-29-2023 Iron saturation [Mass fraction] 51.5 % [facility] Laboratory - Chemistry and C hemistry - challengeon 12-29-2023 Iron [Mass/Vol] 124.0 ug/dL 50.0-170.0 [facility] - Hematology and Cell countson 12-29-2023 ESR (Bld) [Velocity] 5 mm/h <=30 [facility] Immature granulocytes/100 WBC (Bld) 0.8 % 0.0-0.5 [facility] Leukocytes [#/volume] correc tyrone for nucleated erythrocytes in Blood by Automated counon 12-29-2023 WBC corrected for nucl RBC Auto (Bld) [#/Vol] 8.9 10 3/uL 4.0-11.0 [facility] Lymphocytes Auto (Bld) [#/Vo l]on 12-29-2023 Lymphocytes (Bld) [#/Vol] 4.4 10 3/uL 1.2-3.8 [facility] Lymphocytes/100 WBC Auto (Bl d)on 12-29-2023 Lymphocytes/100 WBC (Bld) 49.7 % 20.5-60.0 [facility] MCH Auto (RBC) [Entitic mass ]on 12-29-2023 MCH (RBC) [Entitic mass] 31.0 pg 26.7-34.0 [facility] MCHC Auto (RBC) [Mass/Vol]on 12-29-2023 MCHC (RBC) [Mass/Vol] 31.7 g/dL 29.9-35.2 [facility] MCV Auto (RBC) [Entitic vol] on 12-29-2023 MCV (RBC) [Entitic vol] 98.0 fL 81.0-99.0 [facility] Monocytes Auto (Bld) [#/Vol] on 12-29-2023 Monocytes (Bld) [#/Vol] 0.7 10 3/uL 0.3-0.8 [facility] Monocytes/100 WBC Auto (Bld) on 12-29-2023 Monocytes/100 WBC (Bld) 7.3 % 1.7-12.0 [facility] Neutrophils Auto (Bld) [#/Vo l]on 12-29-2023 Neutrophils (Bld) [#/Vol] 3.7 10 3/uL 1.4-6.5 [facility] Neutrophils/100 WBC Auto (Bl d)on 12-29-2023 Neutrophils/100 WBC (Bld) 41.3 % 43.0-75.0 [facility] No Panel Informationon 12-28 Eosinophils # (Auto) 0.1 10 3/uL 0.0-0.7 [facility] Immature Granulocyte # (Auto) 0.07 10 3/uL 0.00-0.03 [facility] Platelet mean volume Auto (B ld) [Entitic vol]on 12-29-2023 Platelet mean volume (Bld) [Entitic vol] 8.3 fL 9.5-13.5 [facility] Platelets Auto (Bld) [#/Vol] on 12-29-2023 Platelets (Bld) [#/Vol] 262 10 3/uL 150-450 [facility] RBC Auto (Bld) [#/Vol]on RBC (Bld) [#/Vol] 4.06 10 6/uL 4.20-5.40 [facility] 36on 12-10-2023 36 Please review notes from [facility]. Patient should be contacting [facility] for assistance on how to proceed. [facility] 36 Spoke with daughter, pt will have to pay $700 for the Actemra through insurance and does not qualify for PAP due to income, would like to know what you want to do. [facility] Telephoneon 12-10-2023 Telephone [phone] Carlyle David 1945 F Date Provider Department Center 12/10/2023 JT CROOK I [facility] No family history on file [facility] 36on 12-04-2023 36 Spoke with patient's daughter and they will bead picker tomorrow . [facility] 36 Yes, I have 2 availa ble samples of Actemra. I will contact patient and inform to bead picker at [facility] location. [facility] 36 Do we have Actemra samples Lindsay corcoran Jose. [facility] Follow-Upon 11-26-2023 Follow-Up [id number] Carlyle David 1945 F Date Provider Department Center 11/26/2023 [id number] JASSO I [facility] No family history on file Level of Service:96963 [place] OFFICE/OUTPATIENT ESTABLISHED MOD MDM 30 MIN Reason for Visit and Comments: Follow-up [170576] - [facility] Basophils Auto (Bld) [#/Vol] on 10-30-2023 Basophils (Bld) [#/Vol] 0.0 10 3/uL 0.0-0.1 [facility] Basophils/100 WBC Auto (Bld) on 10-30-2023 Basophils/100 WBC (Bld) 0.2 % 0.2-2.0 [facility] Blood Mycobacterium tubercul osis tuberculin stimulated gamma interferon detectionon 10-30-2023 M. tuberculosis tuberculin stim IFN-g Ql (Bld) Comment . [facility] Comment on above: QuantiFERON-TB Gold Plus is a qualitative indirect test forM tuberculosis infection (including disease) and isintended for use in conjunction with risk assessment,radiography, and other medical and diagnostic evaluations.The QuantiFERON-TB Gold Plus result is determined bysubtracting the Nil value from either TB antigen (Ag)value. The Mitogen tube serves as a control for the test. M. tuberculosis tuberculin stim IFN-g Ql (Bld) 0.03 [IU]/mL . [facility] Blood mitogen stimulated hussain ma interferon measurement (units/volume)on 10-30-2023 Mitogen stimulated gamma interferon Qn (Bld) >10.00 [IU]/mL . [facility] Cholesterol in LDL Calc [Mas s/Vol]on 10-30-2023 Cholesterol in LDL [Mass/Vol] 161.0 mg/dL [facility] Comment on above: <100 mg/dl [id number] 0-129 mg/dl NEAR OR ABOVE [id number] mg/dl BORDERLINE [id number] mg/dl HIGH>190 mg/dl VERY HIGH Cholesterol in VLDL Calc [Ma ss/Vol]on 10-30-2023 Cholesterol in VLDL [Mass/Vol] 12.4 mg/dL [facility] Eosinophils/100 WBC Auto (Bl d)on 10-30-2023 Eosinophils/100 WBC (Bld) 0.4 % 0.9-7.0 [facility] Erythrocyte distribution wid th Auto (RBC) [Ratio]on 10-30-2023 Erythrocyte distribution width (RBC) [Ratio] 19.2 % 11.0-15.0 [facility] Estimated glomerular filtrat ion rate (GFR) non- Americanon 10-30-2023 GFR/1.73 sq M.predicted among non-blacks MDRD (S/P/Bld) [Vol rate/Area] mL/min/{1.73_m2} >=60 [facility] Globulin Calc (S) [Mass/Vol] on 10-30-2023 Globulin (S) [Mass/Vol] 3.4 g/dL [facility] Hematocrit Auto (Bld) [Volum e fraction]on 10-30-2023 Hematocrit (Bld) [Volume fraction] 34.9 % 36.0-48.0 [facility] Hemoglobin [Mass/volume] in Bloodon 10-30-2023 Hemoglobin (Bld) [Mass/Vol] 10.8 g/dL 12.0-16.0 [facility] Hepatitis C virus IgG Ab [Pr esence] in Serum or Plasma by Immunoassayon 10-30-2023 HCV IgG IA Ql Non-Reactive Non Reactive [facility] Comment on above: HCV antibody alone d oes not differentiate betweenpreviously resolved infection and active infection.Equivocal and Reactive HCV antibody results should befollowed up with an HCV RNA test to support the diagnosisof active HCV infection. Laboratory - Chemistry and C hemistry - challengeon 10-30-2023 Albumin [Mass/Vol] 2.9 g/dL 3.4-5.0 [facility] ALP [Catalytic activity/Vol] 60 U/L 46-116 [facility] ALT [Catalytic activity/Vol] 24 U/L 14-59 [facility] AST [Catalytic activity/Vol] 10 U/L 15-37 [facility] Bilirubin [Mass/Vol] 0.4 mg/dL 0.2-1.0 [facility] Calcium [Mass/Vol] 8.3 mg/dL 8.5-10.1 [facility] Chloride [Moles/Vol] 102 mmol/L 98-107 [facility] Cholesterol [Mass/Vol] 308 mg/dL <=200 [facility] Cholesterol in HDL [Mass/Vol] 135 mg/dL 40-60 [facility] Comment on above: > or =60 mg/dl - LOW CARDIOVASCULAR RISK<40 mg/dl - HIGH CARDIOVASCULAR RISK CO2 [Moles/Vol] 30.3 mmol/L 21.0-32.0 [facility] Creatinine [Mass/Vol] 0.78 mg/dL 0.55-1.02 [facility] GFR/1.73 sq M.predicted MDRD (S/P/Bld) [Vol rate/Area] mL/min/{1.73_m2} >=60 [facility] Glucose [Mass/Vol] 71 mg/dL 74-106 [facility] Potassium [Moles/Vol] 4.1 mmol/L 3.5-5.1 [facility] Protein [Mass/Vol] 6.3 g/dL 6.4-8.2 [facility] Sodium [Moles/Vol] 140 mmol/L 136-145 [facility] Triglyceride [Mass/Vol] 62 mg/dL <=150 [facility] Urea nitrogen [Mass/Vol] 23.0 mg/dL 7.0-18.0 [facility] Urea nitrogen/Creatinine [Mass ratio] 29.5 mg/mg [facility] Laboratory - Hematology and Cell countson 10-30-2023 ESR (Bld) [Velocity] 21 mm/h <=30 [facility] Immature granulocytes/100 WBC (Bld) 1.8 % 0.0-0.5 [facility] Leukocytes [#/volume] correc tyrone for nucleated erythrocytes in Blood by Automated counon 10-30-2023 WBC corrected for nucl RBC Auto (Bld) [#/Vol] 11.4 10 3/uL 4.0-11.0 [facility] Lymphocytes Auto (Bld) [#/Vo l]on 10-30-2023 Lymphocytes (Bld) [#/Vol] 3.9 10 3/uL 1.2-3.8 [facility] Lymphocytes/100 WBC Auto (Bl d)on 10-30-2023 Lymphocytes/100 WBC (Bld) 34.2 % 20.5-60.0 [facility] MCH Auto (RBC) [Entitic mass ]on 10-30-2023 MCH (RBC) [Entitic mass] 29.4 pg 26.7-34.0 [facility] MCHC Auto (RBC) [Mass/Vol]on 10-30-2023 MCHC (RBC) [Mass/Vol] 30.9 g/dL 29.9-35.2 [facility] MCV Auto (RBC) [Entitic vol] on 10-30-2023 MCV (RBC) [Entitic vol] 95.1 fL 81.0-99.0 [facility] Monocytes Auto (Bld) [#/Vol] on 10-30-2023 Monocytes (Bld) [#/Vol] 0.8 10 3/uL 0.3-0.8 [facility] Monocytes/100 WBC Auto (Bld) on 10-30-2023 Monocytes/100 WBC (Bld) 7.3 % 1.7-12.0 [facility] Mycobacterium tuberculosis s timulated gamma interferon [Interpretation] in Blood Qualon 10-30-2023 M. tuberculosis stim IFN-g Ql (Bld) [Interp] Negative Negative [facility] Comment on above: No response to M tub erculosis antigens detected.Infection with M tuberculosis is unlikely, but high riskindividuals should be considered for additional testing(ATS/IDSA/CDC Clinical Practice Guidelines, 2017). Thereference range is an Antigen minus Nil result of <0.35IU/mL.Chemiluminescence immunoassay methodologyPerformed at: [facility] [id number] Director: Bobby Mckeon PhD, Phone: [phone] Neutrophils Auto (Bld) [#/Vo l]on 10-30-2023 Neutrophils (Bld) [#/Vol] 6.4 10 3/uL 1.4-6.5 [facility] Neutrophils/100 WBC Auto (Bl d)on 10-30-2023 Neutrophils/100 WBC (Bld) 56.1 % 43.0-75.0 [facility] No Panel Informationon 10-29 Eosinophils # (Auto) 0.0 10 3/uL 0.0-0.7 [facility] Hepatitis B Core Total Antibody Negative Negative [facility] Comment on above: Performed at: [facility] - [facility] [address] [id number] Director: Bobby Mckeon PhD, Phone: [phone] Immature Granulocyte # (Auto) 0.20 10 3/uL 0.00-0.03 [facility] Miscellaneous Test COMMENT . [facility] Comment on above: Test Ordered: [id number] Hep Be AgHep Be Ag Negative CB Reference Range: NegativePerformed at: [facility] - [facility] [address] [id number] Director: Bobby Mckeon PhD, Phone: [phone] TB Test (QFT) Incubation See comment . [facility] Comment on above: Incubation performed . Reference Range: . Platelet mean volume Auto (B ld) [Entitic vol]on 10-30-2023 Platelet mean volume (Bld) [Entitic vol] 8.2 fL 9.5-13.5 [facility] Platelets Auto (Bld) [#/Vol] on 10-30-2023 Platelets (Bld) [#/Vol] 287 10 3/uL 150-450 [facility] RBC Auto (Bld) [#/Vol]on RBC (Bld) [#/Vol] 3.67 10 6/uL 4.20-5.40 [facility] Serum or plasma albumin/glob ulin mass ratioon 10-30-2023 Albumin/Globulin [Mass ratio] 0.9 {ratio} [facility] Serum or plasma anion gap de terminationon 10-30-2023 Anion gap [Moles/Vol] 11.8 mmol/L [facility] Serum or plasma total choles terol/high density lipoprotein (HDL) cholesterol mass artie 10-30-2023 Cholesterol.total/Choles terol in HDL [Mass ratio] 2.3 {ratio} [facility] Comment on above: 3.3 - 4.4 LOW RISK4. 4 - 7.1 AVERAGE RISK7.1 - 11.0 MODERATE RISK>11.0 HIGH RISK Whole blood measurement of M ycobacterium tuberculosis stimulated gamma interferon relon 10-30-2023 M. tuberculosis stim IFN-g by CD4+ CD8+ T-cells corrected for background Qn (Bld) 0.03 [IU]/mL . [facility] 36on 10-22-2023 36 Pt wondering if she should continue this medication, was prescribed out of the hospital. Please advise [facility] Documentationon 10-21-2023 Documentation [id number] Carlyle David 1945 Provider Department [place] 10/21/2023 1067NARESH KHAN [facility] No family history on file Reason for Visit and Comments: Specialty Pharmacy Note: Actemra [Other] [facility] Follow-Upon 10-21-2023 Follow-Up [id number] Carlyle David 1945 Provider Department [facility] 10/21/2023 [id number] JASSO I [facility] No family history on file Level of Service:06250 [place] OFFICE/OUTPATIENT ESTABLISHED MOD MDM 30 MIN Reason for Visit and Comments: Follow-up [[id number]] - [facility] Telephoneon 10-01-2023 Telephone [phone] Carlyle David 1945 [facility]ly [facility] Provider Department [facility] 10/01/2023 Lissett8LINDSAY NESBITT [facility] No family history on file [facility] BASIC METABOLIC PANLon 09-26 Anion gap [Moles/Vol] 8 mmol/L Normal 5-15 [facility] Comment on above: Performed By: #### C BCA, CMP, 1988-5, FEPR, 2276-4, 2284-8, 05169-5, 2132-9, 81373-4, 48262-2, 5130-0, 85103-9, 42353-3, 07301-9, 3357-1, 8092-9, 99040-3, 37345-4, 35363-8, 61292-8, 55690-9 #### [facility] ([id number]) [address], [address] [place] [address] Calcium [Mass/Vol] 7.9 mg/dL Low 8.5-10.5 [facility] Comment on above: Performed By: #### C BCA, CMP, 1987-12, FEPR, 2276-4, 2284-8, 08324-0, 2132-9, 13658-5, 44504-9, 5130-0, 51246-9, 34775-9, 79526-7, 3357-1, 8092-9, 61380-5, 56759-9, 20692-6, 93011-1, 66632-1 #### [facility] ([id number]) [address], [address] [place] [address] Chloride [Moles/Vol] 103 mmol/L Normal 98-109 [facility] Comment on above: Performed By: #### C BCA, CMP, 1987-12, FEPR, 2275-4, 2284-8, 06550-3, 2131-9, 19692-3, 16511-5, 5130-0, 83732-8, 43391-0, 57385-6, 3357-1, 8092-9, 59488-5, 37991-1, 20679-6, 03064-4, 74090-7 #### [facility] ([id number]) [address], [address] [place] [address] CO2 [Moles/Vol] 30 mmol/L Normal 22-32 [facility] Comment on above: Performed By: #### C BCA, CMP, 1987-12, FEPR, 2276-4, 2284-8, 48688-9, 2132-9, 94582-2, 63528-0, 5130-0, 89794-0, 64492-3, 10830-9, 3357-1, 8092-9, 87265-0, 09193-7, 21637-7, 01984-8, 18398-6 #### [facility] ([id number]) [address] [place] [address], [address] [address] Creatinine [Mass/Vol] 0.65 mg/dL Normal 0.40-1.00 [facility] Comment on above: Result Comment: METH OD TRACEABLE TO IDMS STANDARD Performed By: #### C BCA, CMP, 1987-12, FEPR, 2276-4, 2284-8, 62930-7, 2132-9, 33204-0, 61986-0, 5130-0, 99004-0, 44542-1, 90094-8, 3357-1, 8092-9, 41505-1, 27554-8, 84771-1, 58305-6, 65162-6 #### [facility] ([id number]) [address] [place] [address], [address] [address] eGFR (CKD-EPI) NON-RACE DEPENDENT >90 Normal >59 [facility] Comment on above: Result Comment: Reported eGFR is based on the CKD-EPI 2020 equation that does not use a race coefficient. Performed By: #### C BCA, CMP, 1987-12, FEPR, 2275-4, 2284-8, 14411-7, 2132-9, 53401-1, 30737-9, 5130-0, 51578-5, 79424-0, 63422-2, 3357-1, 8092-9, 96621-0, 12582-1, 76708-7, 25013-1, 57473-3 #### [facility] ([id number]) [address] [place] [address], [address] [place] [address] Glucose [Mass/Vol] 79 mg/dL Normal 65-99 [facility] Comment on above: Performed By: #### C BCA, CMP, 1987-12, FEPR, 2276-4, 2284-8, 37799-2, 2132-9, 94166-3, 00987-0, 5130-0, 91934-2, 90713-4, 47934-5, 3357-1, 8092-9, 80463-3, 60983-0, 14701-1, 43500-5, 24815-9 #### [facility] ([id number]) [address], [address] [place] [address] Potassium [Moles/Vol] 3.9 mmol/L Normal 3.5-5.0 [facility] Comment on above: Performed By: #### C BCA, CMP, 1987-12, FEPR, 2275-, 4-8, 12837-6, 2132-9, 44130-4, 14952-9, 5130-0, 86415-3, 40876-3, 06104-2, 3357-1, 8092-9, 12075-0, 30445-4, 78626-7, 33595-6, 30650-7 #### [facility] ([id number]) [facility] [facility], [address] [place] [address] Sodium [Moles/Vol] 141 mmol/L Normal 134-146 [facility] Comment on above: Performed By: #### C BCA, CMP, 1987-12, FEPR, 2275-, 2283-8, 32964-9, 2132-9, 93736-0, 75995-8, 5130-0, 68114-5, 19201-5, 20780-9, 3357-1, 8092-9, 81117-9, 10692-2, 40129-3, 96485-1, 23492-1 #### [facility] ([id number]) [facility], [address] [place] [address] Urea nitrogen [Mass/Vol] 26 mg/dL Normal 5-27 [facility] Comment on above: Performed By: #### C BCA, CMP, 1988-5, FEPR, 2275-11, 2283-8, 71154-1, 2131-9, 15327-3, 88871-1, 5130-0, 87933-9, 11955-0, 84817-8, 3357-1, 8092-9, 92304-6, 52276-4, 65063-0, 36167-2, 48996-3 #### [facility] ([id number]) [address] [facility], [address] [place] [address] Basic Metabolic Panelon Anion gap [Moles/Vol] 8 mmol/L 5 - 15 mmol/L [facility] Calcium [Mass/Vol] 7.9 mg/dL Low 8.5 - 10. 5 mg/dL [facility] Chloride [Moles/Vol] 103 mmol/L 98 - 10 9 mmol/L [facility] CO2 [Moles/Vol] 30 mmol/L 22 - 32 mmol/L [facility] Creatinine [Mass/Vol] 0.65 mg/dL 0.40 - 1.00 mg/dL [facility] Comment on above: METHOD TRACEABLE TO IDME STANDARD eGFR (CKD-EPI)non-race dependent - PINF [facility] Comment on above: Reported eGFR is based on the CKD-EPI 2020 equation that does not use a race coefficient. Glucose [Mass/Vol] 79 mg/dL 65 - 99 mg/dL [facility] Interpretation and review of laboratory results Abnormal [facility] Potassium [Moles/Vol] 3.9 mmol/L 3.5 - 5.0 mmol/L [facility] Sodium [Moles/Vol] 141 mmol/L 134 - 146 mmol/L [facility] Urea nitrogen [Mass/Vol] 26 mg/dL 5 - 27 mg/dL [facility] CBC AND AUTO DIFFon 09-26-19 24 ABSOLUTE BASOPHIL 0.1 X10E9/L Normal 0.0-0.2 [facility] Comment on above: Performed By: #### C BCA, CMP, 1987-, FEPR, 2275-4, 2283-8, 61685-5, 2132-9, 17862-6, 68030-2, 5130-0, 01728-4, 79851-5, 89428-5, 3357-1, 8092-9, 87724-3, 36121-5, 77675-0, 40390-8, 41244-6 #### [facility] ([id number]) [address], [address] [place] [address] ABSOLUTE NEUTROPHIL 7.1 X10E9/L High 1.5-6.6 [facility] Comment on above: Performed By: #### C SHARATH, CMP, 1987-12, FEPR, 2276-4, 2284-8, 34920-9, 2132-9, 19651-0, 81760-4, 5130-0, 48909-3, 34346-9, 45469-1, 3357-1, 8092-9, 61679-0, 09379-0, 62430-0, 28728-9, 01912-2 #### [facility] ([id number]) [address], [address] [place] [address] Basophils/100 WBC (Bld) 0.8 % Normal P [facility] Comment on above: Performed By: #### C SHARATH, CMP, 1987-12, FEPR, 2275-4, 2283-8, 20534-3, 2132-9, 45805-0, 39259-6, 5130-0, 34012-5, 62108-3, 26919-7, 3357-1, 8092-9, 68480-0, 79586-3, 17969-0, 86277-9, 78290-2 #### [facility] ([id number]) [address], [address] [place] [address] Eosinophils (Bld) [#/Vol] 0.0 10*3/uL Normal 0.0-0.4 [facility] Comment on above: Performed By: #### C BCA, CMP, 1987-12, FEPR, 2276-4, 2284-8, 64273-0, 2132-9, 30532-8, 21570-6, 5130-0, 32654-3, 81898-4, 63321-0, 3357-1, 8092-9, 33801-7, 57181-1, 19692-6, 27022-7, 35811-7 #### [facility] ([id number]) [address] [facility], [address] [place] [address] Eosinophils/100 WBC (Bld) 0.0 % Normal [facility] Comment on above: Performed By: #### C SHARATH, CMP, 1987-12, FEPR, 2275-4, 2284-8, 75243-8, 2132-9, 77547-1, 88552-3, 5130-0, 81962-2, 20469-0, 71059-1, 3357-1, 8092-9, 59527-3, 17051-1, 06046-5, 79700-1, 76577-0 #### [facility] ([id number]) [facility] [facility], [address] [place] [address] Erythrocyte distribution width (RBC) [Ratio] 14.4 % Normal 11.5-15.0 [facility] Comment on above: Performed By: #### C SHARATH, CMP, 1987-12, FEPR, 2275-4, 2284-8, 62675-6, 2132-9, 42065-1, 00401-7, 5130-0, 42516-5, 24130-3, 38610-4, 3357-1, 8092-9, 40532-4, 57271-1, 96011-3, 83076-0, 46384-8 #### [facility] ([id number]) [facility] [facility], [address] [place] [address] Hematocrit (Bld) [Volume fraction] 24.8 % Low 35-47 [facility] Comment on above: Performed By: #### C BCA, CMP, 1987-12, FEPR, 2276-4, 2284-8, 67143-8, 2132-9, 31972-9, 28189-8, 5130-0, 46680-2, 04211-8, 87354-5, 3357-1, 8092-9, 48950-5, 46957-0, 62071-8, 71309-4, 62156-1 #### [facility] ([id number]) [address] [facility], [address] [place] [address] Hemoglobin (Bld) [Mass/Vol] 8.2 g/dL Low 11.7-15.5 [facility] Comment on above: Performed By: #### C KELVIN EARLY, 1987-12, FEPR, 2275-4, 2284-8, 85714-8, 2132-9, 14189-6, 91202-0, 5130-0, 23527-3, 43290-3, 84764-8, 3357-1, 8092-9, 10165-7, 91799-4, 54588-2, 53795-7, 78901-9 #### [facility] ([id number]) [facility], [address] [place] [address] Lymphocytes (Bld) [#/Vol] 2.4 10*3/uL Normal 1.0-3.5 [facility] Comment on above: Performed By: #### C SHARATH, CMP, 1987-12, FEPR, 2275-4, 2284-8, 40049-4, 2132-9, 95303-1, 35814-9, 5130-0, 90323-8, 60781-5, 73870-2, 3357-1, 8092-9, 10349-9, 16587-1, 98836-7, 12122-4, 51577-0 #### [facility] ([id number]) [address] [facility], [address] [place] [address] Lymphocytes/100 WBC (Bld) 22.6 % Normal [facility] Comment on above: Performed By: #### C SHARATH, CMP, 1987-12, FEPR, 2276-4, 2284-8, 57612-1, 2132-9, 09017-8, 56004-5, 5130-0, 93570-7, 48776-9, 28407-0, 3357-1, 8092-9, 33552-8, 86953-0, 09781-7, 96855-9, 31383-0 #### [facility] ([id number]) [address], [address] [place] [address] MCH (RBC) [Entitic mass] 28.5 pg Normal 27-34 [facility] Comment on above: Performed By: #### C SHARATH, CMP, 1987-12, FEPR, 2276-4, 2284-8, 01889-4, 2132-9, 92578-0, 24185-4, 5130-0, 29270-1, 03107-4, 74263-4, 3357-1, 8092-9, 11013-2, 99915-5, 15545-8, 62992-7, 51071-4 #### [facility] ([id number]) [address], [address] [place] [address] MCHC (RBC) [Mass/Vol] 33.1 g/dL Normal 32-36 [facility] Comment on above: Performed By: #### C SHARATH, CMP, 1987-12, FEPR, 2276-4, 2284-8, 84566-6, 2132-9, 53459-0, 46905-6, 5130-0, 19810-6, 14526-0, 78922-0, 3357-1, 8092-9, 63531-3, 29013-9, 88549-0, 48450-7, 68975-9 #### [facility] ([id number]) [address], [address] [place] [address] MCV (RBC) [Entitic vol] 86 fL Normal 80-100 P [facility] Comment on above: Performed By: #### C BCA, CMP, 1987-12, FEPR, 2276-4, 2284-8, 93645-8, 2132-9, 90166-0, 91540-1, 5130-0, 49363-4, 05366-7, 36702-3, 3357-1, 8092-9, 09017-6, 71924-5, 11895-6, 43656-6, 36065-1 #### [facility] ([id number]) [address], [address] [place] [address] Monocytes (Bld) [#/Vol] 1.0 10*3/uL High 0-0.9 [facility] Comment on above: Performed By: #### C BCA, CMP, 1987-12, FEPR, 2276-4, 2284-8, 09779-4, 2132-9, 62902-7, 03244-9, 5130-0, 66179-0, 81215-5, 73744-6, 3357-1, 8092-9, 04138-6, 46239-3, 55932-4, 86626-3, 32993-2 #### [facility] ([id number]) [address], [address] [place] [address] Monocytes/100 WBC (Bld) 9.0 % Normal [facility] Comment on above: Performed By: #### C BCA, CMP, 1987-12, FEPR, 2276-4, 2284-8, 45951-9, 2132-9, 26456-6, 62973-4, 5130-0, 12583-1, 55728-6, 52488-2, 3357-1, 8092-9, 64985-0, 61568-9, 22700-9, 01280-5, 60949-8 #### [facility] ([id number]) [address], [address] [place] [address] Neutrophils/100 WBC (Bld) 67.6 % Normal [facility] Comment on above: Performed By: #### C BCA, CMP, 1987-12, FEPR, 2276-4, 2284-8, 90133-0, 2132-9, 79469-2, 52167-4, 5130-0, 48155-9, 13343-7, 81154-8, 3357-1, 8092-9, 78470-6, 55879-4, 94511-9, 61628-1, 19990-4 #### [facility] ([id number]) [address], [address] [place] [address] Platelet mean volume (Bld) [Entitic vol] 6.4 fL Low 7-12 [facility] Comment on above: Performed By: #### C BCA, CMP, 1987-12, FEPR, 227-4, 2284-8, 66373-0, 2132-9, 13945-5, 03276-0, 5130-0, 95092-1, 22667-2, 31959-9, 3357-1, 8092-9, 36528-0, 72659-3, 78253-5, 62101-3, 82445-6 #### [facility] ([id number]) [address], [address] [place] [address] Platelets (Bld) [#/Vol] 686 10*3/uL High 150-450 [facility] Comment on above: Performed By: #### C BCA, CMP, 1987-12, FEPR, 2276-4, 2284-8, 14435-4, 2132-9, 61614-8, 58448-1, 5130-0, 25060-1, 53500-6, 52042-6, 3357-1, 8092-9, 35205-0, 45236-1, 82987-9, 98619-8, 32350-7 #### [facility] ([id number]) [address], [address] [place] [address] RBC COUNT 2.88 X10E12/L Low 3.80-5.20 [facility] Comment on above: Performed By: #### C SHARATH, [facility], 1987-12, FEPR, 2276-4, 2284-8, 89629-9, 2132-9, 26107-1, 96117-4, 5130-0, 13452-4, 53332-9, 59503-7, 3357-1, 8092-9, 55296-6, 48113-1, 59458-2, 33241-5, 88251-1 #### [facility] ([id number]) [address] [place] [address], [address] [address] WBC (Bld) [#/Vol] 10.5 10*3/uL Normal 4.0-11.0 [facility] Comment on above: Performed By: #### C SHARATH, [facility], 1987-12, FEPR, 2276-4, 2284-8, 61267-3, 2132-9, 96898-0, 86748-6, 5130-0, 48945-1, 65044-5, 90592-9, 3357-1, 8092-9, 14805-4, 35904-4, 04071-6, 11882-9, 06063-4 #### [facility] ([id number]) [address] [facility], [address] [place] [address] CBC auto differentialon Basophils (Bld) [#/Vol] 0.1 10*3/uL [facility] Basophils/100 WBC (Bld) 0.8 % P [facility] Eosinophils (Bld) [#/Vol] 0.0 10*3/uL [facility] Eosinophils/100 WBC (Bld) 0.0 % [facility] Erythrocyte distribution width (RBC) [Ratio] 14.4 % 11.5 - 15.0 % [facility] Hematocrit (Bld) [Volume fraction] 24.8 % Low 35 - 47 % [facility] Hemoglobin (Bld) [Mass/Vol] 8.2 g/dL Low 11.7 - 15.5 g/dL [facility] Interpretation and review of laboratory results Abnormal [facility] Lymphocytes (Bld) [#/Vol] 2.4 10*3/uL [facility] Lymphocytes/100 WBC (Bld) 22.6 % [facility] MCH (RBC) [Entitic mass] 28.5 pg 27 - 34 pg [facility] MCHC (RBC) [Mass/Vol] 33.1 g/dL 32 - 3 6 g/dL [facility] MCV (RBC) [Entitic vol] 86 fL 80 - 100 fL [facility] Monocytes (Bld) [#/Vol] 1.0 10*3/uL High [facility] Monocytes/100 WBC (Bld) 9.0 % [facility] Neutrophils (Bld) [#/Vol] 7.1 10*3/uL High [facility] Neutrophils/100 WBC (Bld) 67.6 % [facility] Platelet mean volume (Bld) [Entitic vol] 6.4 fL Low 7 - 12 fL [facility] Platelets (Bld) [#/Vol] 686 10*3/uL High [facility] RBC (Bld) [#/Vol] 2.88 10*6/uL Low [facility] WBC corrected for nucl RBC Auto (Bld) [#/Vol] 10.5 [facility] Clinical Pathology Blood Sme ar Review Clinicalon 09-26-2023 Pathologist review Pathologist comment (Bld) [Interp] NOTE [facility] Comment on above: [facility] [address] [place] [address] Clinical Pathology Report Patient Name:JOSE DAVID:1945 (Age: 78)Gender:FTaken:4Reported:4Physician(s):Olga Pan M.D. ([phone])Copy To: Rec. #:[id number]: #[id number] Final Pathologic Diagnosis Peripheral blood smear: Neutrophilic [...] Out hn/09/26/2023Og Martinez M.D. Interpretation performed at [facility], [address] [place] [address], License number: [id number]. Clinical History R29.9. BLOOD SMEAR EVALUATION CBC (09/23/2023 0818): WBC = 12.1 X10E9/L; HGB = 9.1 g/dL; HCT = 27.8%; MCV = 85 fL; PLT = 924 X10E9/L OTHER LAB DATA: Noncontributory. BLOOD SMEAR: Leukocytes: Neutrophilic leukocytosis with cytotoxic changes and lymphocytopenia. Erythrocytes: Moderate normocytic normochromic anemia. Platelets: Thrombocytosis. Specimen(s) Received Blood Smear Review Fee Codes(s): 1; 22737 JAK2 V617F mutationon 2023 JAK2 gene [id number] [facility] (Bld/Tiss) SEE COMMENTS 09/26/2023 10:21 AM [facility] Comment on above: NOTE Test Result Flag Unit RefValue ----- JAK2 V617F Mutation Detection, B JAK2 Result see interpretation JAK2 V617F Mutation Detection, B See Note Peripheral blood, JAK2 V617F mutation analysis: Negative for JAK2 V617F. A negative [id number] test result does not exclude the possibility [...] assay has been determined at 0.06% (see [facility] Interpretive Handbook for method details). This test was developed and its performance characteristics determined by [facility] in a manner consistent with CLIA requirements. This test has not been cleared or approved by the U.S. Food and Drug Administration. Test Performed by: [place] [address] Registered Radiologic Technologist: Thierry Duran M.D. Ph.D.; CLIA# [id number] JAK2 gene p.[id number] [facility] Ql (Bld/Tiss)on 09-26-2023 [facility] Pathologist review Pathologi st comment (Bld) [Interp]on 09-26-2023 [facility] Surgical Pathologyon 024 [facility] [address] [place] [address] Surgical Pathology Consultation Patient Name:JOSE DAVID:1945 (Age: 78)Gender:FTaken:09/25/19 24Reported:4Phys ician(s):Kristel Reid MD ([phone])Copy To: Rec. #:[id number]: #[id number] Final Pathologic Diagnosis 1. Left temporal artery [...] correlation is suggested. Report Electronically Signed Out [facility]/09/26/2023José Luis Pederson MD Interpretation performed at [facility], [address] [place] [address], License number: [id number]. Clinical History Temporal arteries. Gross Description 1. Received in formalin labeled [place], left temporal artery biopsy is a segment of vasculature, 2 x 0.3 cm. The specimen is sectioned to reveal a pinpoint lumen. Are 3 segments of vasculature ranging from 0.5 cm to 1.2 cm in length by 0.2 cm in diameter. The specimen is submitted entirely in a single cassette. (1,ns,[id number], m1) . 2. Received in formalin labeled [place]ULU[place], right temporal artery biopsy are 3 segments of vasculature ranging from 0.5 cm to 1.2 cm in length by 0.2 cm in diameter. The segments are sectioned to reveal pinpoint lumens. The specimen are submitted entirely in cassettes A-B. (2,ns,[id number], m1) . /4RG Specimen(s) Received 1: Left temporal artery biopsy 2: Right temporal artery biopsy Fee Codes(s): 1; 46051, 70394 2; 80330, 12113 [facility] BCR/ABL by PCR w/ Reflexon 0 09-25-2023 Narrative diagnostic report [facility] Yaw (Bld/Tiss) [Interp] SEE COMMENTS 09/25/2023 04:24 PM [facility] Comment on above: NOTE Test Result Flag Unit RefValue ----- BCR/ABL1 Reflex, Qual/Quant Specimen Type EDTA WHOLE BLOOD BCR/ABL1 Reflex Result see interpretation Interpretation See Note Peripheral blood, BCR/ABL1 mRNA analysis, qualitative: Negative. No BCR/ABL1 mRNA transcripts were detected. Method summary: The presence or absence of BCR/ABL1 mRNA transcripts was evaluated using a qualitative, reverse clinic md associate PCR-based assay. The assay detects nearly all published and theoretical BCR/ABL1 fusion forms including the common e13/e14-a2 (p210) and e1-a2 (p190) transcripts, as well as other rarer variants (e.g. e19-a2 (p230), e13/e14-a3, e1-a3, etc.). The limit of detection for this assay is 0.1%. Please contact the lab at [phone] with questions or if additional testing is required. See [employer] Test Catalog for additional method details. Signing Pathologist: Ammon Titus M.D. (Jane), Ph.D. ADDITIONAL INFORMATION This test was developed and its performance characteristics determined by [facility] in a manner consistent with CLIA requirements. This test has not been cleared or approved by the U.S. Food and Drug Administration. Test Performed by: [place] [address] Registered Radiologic Technologist: Thierry Duran M.D. Ph.D.; CLIA# [id number] Narrative diagnostic report [employer] Yaw (Bld/Tiss) [Interp]on 09-25-2023 [facility] Surgical Pathologyon 024 Surgical Pathology Normal [facility] Comment on above: Result Comment: [facility] [address] [place] [address] Surgical Pathology Consultation ADDENDUM [place] Patient Name:JOSE DAVID:1945 (Age: 78)Gender:FTaken:09/25/2023eported:09/26/2023hysician(s):Kristel Reid MD ([phone])Copy To: Rec. #:[id number]: #[id number] Final Pathologic Diagnosis 1. Left temporal artery [...] Signed Out wak/09/26/2023José Luis Pederson MD Addendum ([facility]) Date Reported: 09/29/2023 In both parts of the specimen, and elastic special stain (with appropriate controls) demonstrates fragmentation and loss of the internal elastic lamina. Electronically Signed Out José Luis Pederson MD Interpretation performed at [facility], [address] [place] [address], License number: [id number]. Clinical History Temporal arteries. Gross Description 1. Received in formalin labeled [place], left temporal artery biopsy is a segment of vasculature, 2 x 0.3 cm. The specimen is sectioned to reveal a pinpoint lumen. Are 3 segments of vasculature ranging from 0.5 cm to 1.2 cm in length by 0.2 cm in diameter. The specimen is submitted entirely in a single cassette. (1,ns,[id number], m1) . 2. Received in formalin labeled MULUGETA, right temporal artery biopsy are 3 segments of vasculature ranging from 0.5 cm to 1.2 cm in length by 0.2 cm in diameter. The segments are sectioned to reveal pinpoint lumens. The specimen are submitted entirely in cassettes A-B. (2,ns,[id number], m1) . /4RG Specimen(s) Received 1: Left temporal artery biopsy 2: Right temporal artery biopsy Fee Codes(s): 1; 65927, 11613 2; 74815, 27375 dRVVT/dRVVT.excess phospholi pid Coag (PPP) [Ratio]on 09-25-2023 dRVVT excess phospholipid Coag Ql (PPP) Negative [facility] ANCAon 09-24-2023 Neutrophil cytoplasmic Ab IF Ql (S) See Below [facility] Comment on above: NOTE TEST RESULT FLAG [...] See below Reviewed by Arun Tucker, Ph.D D([facility]) This test is used as an aid in diagnosis of patients with autoimmune vasculitidies. The final interpretation should be done in conjunction with ANCA test results and clinical correlation. Test Performed By: [facility] [employer] [address] [place] [address] [employer] Operator: Meño Hernandez III, M.D. CLIA #[id number]^ BASIC METABOLIC PANLon 09-24 Anion gap [Moles/Vol] 10 mmol/L Normal 5-15 [facility] Comment on above: Performed By: #### C BCA, CMP, 1987-12, FEPR, 2276-4, 2284-8, 70540-8, 2132-9, 97176-4, 93972-1, 5130-0, 23745-3, 40575-2, 90919-2, 3357-1, 8092-9, 97089-4, 51901-9, 20352-2, 28575-5, 97308-2 #### [facility] ([id number]) [address] [facility], [address] [place] [address] Calcium [Mass/Vol] 8.5 mg/dL Normal 8.5-10.5 [facility] Comment on above: Performed By: #### C BCA, CMP, 1987-12, FEPR, 2276-4, 2284-8, 63539-4, 2132-9, 30023-8, 98895-2, 5130-0, 03659-6, 72004-4, 25236-7, 3357-1, 8092-9, 46770-9, 49523-4, 87329-6, 18422-7, 24481-7 #### [facility] ([id number]) [address], [address] [place] [address] Chloride [Moles/Vol] 101 mmol/L Normal 98-109 [facility] Comment on above: Performed By: #### C BCA, CMP, 1987-12, FEPR, 2276-4, 2284-8, 63225-2, 2132-9, 53810-7, 96246-0, 5130-0, 89375-2, 45879-4, 35253-7, 3357-1, 8092-9, 10177-4, 40458-9, 88750-7, 10224-0, 28776-4 #### [facility] ([id number]) [address] [place] [address], [address] [place] [address] CO2 [Moles/Vol] 29 mmol/L Normal 22-32 [facility] Comment on above: Performed By: #### C SHARATH, KELVIN, 1986-12, FEPR, 2276-4, 2284-8, 57890-7, 2132-9, 34374-4, 44767-8, 5130-0, 91758-3, 04503-8, 15533-6, 3357-1, 8092-9, 25701-9, 89790-3, 25150-0, 52124-4, 81034-9 #### [facility] ([id number]) [address] [place] [address], [address] [address] Creatinine [Mass/Vol] 0.61 mg/dL Normal 0.40-1.00 [facility] Comment on above: Result Comment: METH OD TRACEABLE TO IDMS STANDARD Performed By: #### C SHARATH, KELVIN, 1986-12, FEPR, 2275-4, 2284-8, 19530-7, 2132-9, 50900-8, 74758-2, 5130-0, 08164-2, 52336-8, 88444-3, 3357-1, 8092-9, 82965-1, 73307-9, 13161-5, 39935-4, 38064-5 #### [facility] ([id number]) [address] [place] [address], [address] [address] eGFR (CKD-EPI) NON-RACE DEPENDENT >90 Normal >59 [facility] Comment on above: Result Comment: Reported eGFR is based on the CKD-EPI 2020 equation that does not use a race coefficient. Performed By: #### C SHARATH, KELVIN, 1986-12, FEPR, 227-4, 2284-8, 51157-4, 2132-9, 14214-1, 66930-4, 5130-0, 60061-6, 84822-6, 75733-0, 3357-1, 8092-9, 25884-7, 43697-9, 93242-7, 04889-9, 63528-4 #### [facility] ([id number]) [address], [address] [place] [address] Glucose [Mass/Vol] 98 mg/dL Normal 65-99 [facility] Comment on above: Performed By: #### C BCA, CMP, 1987-12, FEPR, 2275-4, 2283-8, 44212-0, 2132-9, 90484-5, 80826-8, 5130-0, 76287-3, 36910-4, 42394-2, 3357-1, 8092-9, 72618-9, 03947-1, 15529-2, 32713-8, 06297-5 #### [facility] ([id number]) [address], [address] [place] [address] Potassium [Moles/Vol] 3.5 mmol/L Normal 3.5-5.0 [facility] Comment on above: Performed By: #### C BCA, CMP, 1987-12, FEPR, 2275-4, 2283-8, 66762-5, 2131-9, 58208-2, 37860-1, 5130-0, 46956-6, 47978-8, 14114-2, 3357-1, 8092-9, 42040-7, 50100-2, 08708-5, 72713-2, 32003-7 #### [facility] ([id number]) [address], [address] [place] [address] Sodium [Moles/Vol] 140 mmol/L Normal 134-146 [facility] Comment on above: Performed By: #### C BCA, CMP, 1987-12, FEPR, 227-4, 2284-8, 71426-6, 2132-9, 57176-9, 87027-7, 5130-0, 26955-1, 39421-4, 40993-7, 3357-1, 8092-9, 23301-0, 34249-7, 68973-3, 26534-3, 77213-4 #### [facility] ([id number]) [address] [place] [address], [address] [place] [address] Urea nitrogen [Mass/Vol] 22 mg/dL Normal 5-27 [facility] Comment on above: Performed By: #### C BCA, CMP, 1987-5, FEPR, 2276-4, 2284-8, 92705-5, 213-9, 82318-0, 36088-1, 5130-0, 00159-9, 35587-5, 21344-5, 3357-1, 8092-9, 07343-6, 53959-3, 27156-0, 44009-7, 30584-3 #### [facility] ([id number]) [address] [place] [address], [facility] [address] [place] [address] Basic Metabolic Panelon - Anion gap [Moles/Vol] 10 mmol/L 5 - 15 mmol/L [facility] Calcium [Mass/Vol] 8.5 mg/dL 8.5 - 10. 5 mg/dL [facility] Chloride [Moles/Vol] 101 mmol/L 98 - 10 9 mmol/L [facility] CO2 [Moles/Vol] 29 mmol/L 22 - 32 mmol/L [facility] Creatinine [Mass/Vol] 0.61 mg/dL 0.40 - 1.00 mg/dL [facility] Comment on above: METHOD TRACEABLE TO IDMS STANDARD eGFR (CKD-EPI)non-race dependent - PINF [facility] Comment on above: Reported eGFR is based on the CKD-EPI 2020 equation that does not use a race coefficient. Glucose [Mass/Vol] 98 mg/dL 65 - 99 mg/dL [facility] Potassium [Moles/Vol] 3.5 mmol/L 3.5 - 5.0 mmol/L [facility] Sodium [Moles/Vol] 140 mmol/L 134 - 146 mmol/L [facility] Urea nitrogen [Mass/Vol] 22 mg/dL 5 - 27 mg/dL [facility] CBC AND AUTO DIFFon 09-24-19 24 ABSOLUTE BASOPHIL 0.1 X10E9/L Normal 0.0-0.2 [facility] Comment on above: Performed By: #### C BCA, CMP, 1987-12, FEPR, 2276-4, 2284-8, 13800-5, 2132-9, 76042-9, 65553-4, 5130-0, 92254-0, 15068-6, 00480-4, 3357-1, 8092-9, 93858-6, 79620-0, 78618-7, 29092-0, 27100-3 #### [facility] ([id number]) [address], [address] [place] [address] ABSOLUTE NEUTROPHIL 16.3 X10E9/L High 1.5-6.6 [facility] Comment on above: Performed By: #### C BCA, CMP, 1987-12, FEPR, 227-4, 2284-8, 14888-8, 2132-9, 86060-3, 68868-0, 5130-0, 53213-6, 45134-7, 16072-6, 3357-1, 8092-9, 39245-7, 15566-1, 67185-3, 53174-3, 31602-3 #### [facility] ([id number]) [address], [address] [place] [address] Basophils/100 WBC (Bld) 0.5 % Normal [facility] Comment on above: Performed By: #### C BCA, CMP, 1987-12, FEPR, 2276-4, 2284-8, 49972-4, 2132-9, 77722-1, 33244-0, 5130-0, 01894-2, 36829-7, 02972-3, 3357-1, 8092-9, 68289-9, 87617-4, 56055-9, 47060-2, 95115-9 #### [facility] ([id number]) [address], [address] [place] [address] Eosinophils (Bld) [#/Vol] 0.0 10*3/uL Normal 0.0-0.4 [facility] Comment on above: Performed By: #### C BCA, CMP, 1987-12, FEPR, 227-4, 2284-8, 13652-8, 2132-9, 48227-5, 75514-1, 5130-0, 47262-4, 98937-4, 89157-0, 3357-1, 8092-9, 98618-1, 90594-3, 69339-7, 30469-3, 98782-0 #### [facility] ([id number]) [address], [address] [place] [address] Eosinophils/100 WBC (Bld) 0.0 % Normal [facility] Comment on above: Performed By: #### C BCA, CMP, 1987-12, FEPR, 2275-4, 2284-8, 89354-2, 2132-9, 67635-4, 88686-8, 5130-0, 78162-3, 98143-6, 89146-1, 3357-1, 8092-9, 50721-4, 26719-1, 50974-8, 04881-7, 17607-3 #### [facility] ([id number]) [address], [address] [place] [address] Erythrocyte distribution width (RBC) [Ratio] 14.8 % Normal 11.5-15.0 [facility] Comment on above: Performed By: #### C BCA, CMP, 1987-12, FEPR, 2276-4, 2284-8, 20635-7, 2132-9, 53558-3, 77420-4, 5130-0, 09510-5, 41164-4, 59971-3, 3357-1, 8092-9, 66821-1, 12407-9, 99945-4, 57812-1, 25713-4 #### [facility] ([id number]) [address], [address] [place] [address] Hematocrit (Bld) [Volume fraction] 25.6 % Low 35-47 [facility] Comment on above: Performed By: #### C BCA, CMP, 1987-12, FEPR, 2275-4, 2284-8, 23172-8, 2131-9, 75354-4, 46732-2, 5130-0, 85723-4, 89136-8, 67188-6, 3357-1, 8092-9, 21966-8, 88084-5, 00136-0, 24706-1, 99940-5 #### [facility] ([id number]) [address], [address] [place] [address] Hemoglobin (Bld) [Mass/Vol] 8.3 g/dL Low 11.7-15.5 [facility] Comment on above: Performed By: #### C SHARATH, CMP, 1987-12, FEPR, 2275-4, 4-8, 19793-7, 2131-9, 04760-7, 00761-9, 5130-0, 74720-3, 23737-4, 82786-6, 3357-1, 8092-9, 82130-8, 88697-3, 84589-0, 18871-8, 74847-0 #### [facility] ([id number]) [address], [address] [place] [address] Lymphocytes (Bld) [#/Vol] 1.6 10*3/uL Normal 1.0-3.5 [facility] Comment on above: Performed By: #### C SHARATH, CMP, 1987-12, FEPR, 2276-4, 2284-8, 01763-3, 213-9, 57589-0, 14258-1, 5130-0, 93699-0, 69971-1, 44557-5, 3357-1, 8092-9, 19091-0, 22800-3, 52999-5, 80395-1, 46931-0 #### [facility] ([id number]) [address], [address] [place] [address] Lymphocytes/100 WBC (Bld) 8.3 % Normal [facility] Comment on above: Performed By: #### C SHARATH, CMP, 1987-12, FEPR, 2276-4, 2284-8, 96880-8, 2132-9, 79533-7, 08734-1, 5130-0, 12985-6, 79632-4, 16530-3, 3357-1, 8092-9, 62885-7, 14385-4, 52827-2, 97167-2, 31968-1 #### [facility] ([id number]) [address], [address] [place] [address] MCH (RBC) [Entitic mass] 27.8 pg Normal 27-34 [facility] Comment on above: Performed By: #### C SHARATH, CMP, 1987-12, FEPR, 2276-4, 2284-8, 72387-9, 2132-9, 86628-6, 46902-8, 5130-0, 39487-9, 49696-4, 88967-4, 3357-1, 8092-9, 29529-4, 29954-0, 25436-2, 68551-2, 47684-2 #### [facility] ([id number]) [address], [address] [place] [address] MCHC (RBC) [Mass/Vol] 32.5 g/dL Normal 32-36 [facility] Comment on above: Performed By: #### C BCA, CMP, 1987-12, FEPR, 2276-4, 2284-8, 04149-6, 2132-9, 52278-1, 50173-0, 5130-0, 76570-9, 45461-9, 11342-4, 3357-1, 8092-9, 17791-1, 09622-0, 60780-0, 63007-0, 20550-7 #### [facility] ([id number]) [address], [address] [place] [address] MCV (RBC) [Entitic vol] 85 fL Normal 80-100 P [facility] Comment on above: Performed By: #### C BCA, CMP, 1987-12, FEPR, 6-4, 2284-8, 56442-8, 2132-9, 95773-8, 56285-7, 5130-0, 65326-8, 69051-4, 98124-9, 3357-1, 8092-9, 28069-1, 01572-7, 93279-6, 15032-7, 28724-6 #### [facility] ([id number]) [address], [address] [place] [address] Monocytes (Bld) [#/Vol] 1.0 10*3/uL High 0-0.9 [facility] Comment on above: Performed By: #### C BCA, CMP, 1987-12, FEPR, 6-4, 2284-8, 70981-8, 2132-9, 29012-3, 14355-0, 5130-0, 95515-5, 35629-2, 04142-9, 3357-1, 8092-9, 21830-3, 48812-4, 90582-3, 73063-0, 16693-4 #### [facility] ([id number]) [address], [address] [place] [address] Monocytes/100 WBC (Bld) 5.0 % Normal P [facility] Comment on above: Performed By: #### C BCA, CMP, 1987-12, FEPR, 6-4, 2284-8, 27354-6, 2132-9, 97058-1, 30441-6, 5130-0, 81229-0, 70406-6, 01205-8, 3357-1, 8092-9, 25398-1, 91507-6, 56955-8, 48875-6, 28237-2 #### [facility] ([id number]) [address], [address] [place] [address] Neutrophils/100 WBC (Bld) 86.2 % Normal [facility] Comment on above: Performed By: #### C SHARATH, CMP, 1987-12, FEPR, 2276-4, 2284-8, 09346-9, 213-9, 98269-6, 03822-4, 5130-0, 50206-4, 79553-0, 37301-2, 3357-1, 8092-9, 39033-8, 80595-6, 69430-6, 18907-9, 99250-4 #### [facility] ([id number]) [address], [address] [place] [address] Platelet mean volume (Bld) [Entitic vol] 6.5 fL Low 7-12 [facility] Comment on above: Performed By: #### C BCA, CMP, 1987-12, FEPR, 2276-4, 2284-8, 82390-6, 2131-9, 05335-1, 88521-4, 5130-0, 69440-7, 68130-8, 13807-1, 3357-1, 8092-9, 89682-3, 96873-9, 64349-3, 14277-4, 61510-6 #### [facility] ([id number]) [address], [address] [place] [address] Platelets (Bld) [#/Vol] 902 10*3/uL High 150-450 [facility] Comment on above: Performed By: #### C BCA, CMP, 1987-12, FEPR, 2276-4, 2284-8, 73974-9, 2132-9, 26855-6, 19262-4, 5130-0, 77322-6, 66132-5, 38704-1, 3357-1, 8092-9, 92879-8, 10432-9, 71767-1, 21049-2, 10577-4 #### [facility] ([id number]) [address] [facility] [facility] [facility], [address] [place] [address] RBC COUNT 3.00 X10E12/L Low 3.80-5.20 [facility] Comment on above: Performed By: #### C BCA, CMP, 1987-, FEPR, 2276-4, 2284-8, 73512-6, 2132-9, 22556-8, 50632-0, 5130-0, 97585-3, 17919-9, 05826-0, 3357-1, 8092-9, 17367-6, 70520-2, 81955-0, 47033-0, 83449-4 #### [facility] ([id number]) [facility], [address] [place] [address] WBC (Bld) [#/Vol] 18.9 10*3/uL High 4.0-11.0 [facility] Comment on above: Performed By: #### C BCA, CMP, 1987-12, FEPR, 2276-4, 2284-8, 80335-5, 2132-9, 66306-4, 88561-9, 5130-0, 32281-9, 12487-4, 29423-7, 3357-1, 8092-9, 33572-1, 87589-5, 57222-9, 52312-3, 39261-6 #### [facility] ([id number]) [address] [place] [address], [address] [place] [address] CBC auto differentialon - Basophils (Bld) [#/Vol] 0.1 10*3/uL [facility] Basophils/100 WBC (Bld) 0.5 % P [facility] Eosinophils (Bld) [#/Vol] 0.0 10*3/uL [facility] Eosinophils/100 WBC (Bld) 0.0 % [facility] Erythrocyte distribution width (RBC) [Ratio] 14.8 % 11.5 - 15.0 % [facility] Hematocrit (Bld) [Volume fraction] 25.6 % Low 35 - 47 % [facility] Hemoglobin (Bld) [Mass/Vol] 8.3 g/dL Low 11.7 - 15.5 g/dL [facility] Interpretation and review of laboratory results Abnormal [facility] Lymphocytes (Bld) [#/Vol] 1.6 10*3/uL [facility] Lymphocytes/100 WBC (Bld) 8.3 % [facility] MCH (RBC) [Entitic mass] 27.8 pg 27 - 34 pg [facility] MCHC (RBC) [Mass/Vol] 32.5 g/dL 32 - 3 6 g/dL [facility] MCV (RBC) [Entitic vol] 85 fL 80 - 100 fL [facility] Monocytes (Bld) [#/Vol] 1.0 10*3/uL High [facility] Monocytes/100 WBC (Bld) 5.0 % [facility] Neutrophils (Bld) [#/Vol] 16.3 10*3/uL High [facility] Neutrophils/100 WBC (Bld) 86.2 % [facility] Platelet mean volume (Bld) [Entitic vol] 6.5 fL Low 7 - 12 fL [facility] Platelets (Bld) [#/Vol] 902 10*3/uL High [facility] RBC (Bld) [#/Vol] 3.00 10*6/uL Low [facility] WBC corrected for nucl RBC Auto (Bld) [#/Vol] 18.9 High [facility] Cardiac echo study Procedure Ordered By: Nacho Grant on 09-24-2023 Aortic root 2.80 cm [facility] Work Phone: AV mean gradient 6.00 mmHg [facility] Work Phone: AV peak gradient 8.64 mmHg [employer] Work Phone: [phone] AV peak kym 147.00 cm/s [employer] Work Phone: [phone] AV valve area 1.95 cm2 [employer] Work Phone: [phone] AV Velocity Ratio 0.77 [employer] Work Phone: [phone] AV VTI 33.60 cm [employer] Work Phone: [phone] E wave deceleration time 187.00 msec [employer] Work Phone: [phone] E/A ratio 0.72 [employer] Work Phone: [phone] Echo EF Estimated 63 % [employer] Work Phone: [phone] EF 63 % [employer] Work Phone: [phone] Energy loss index 1.88 [employer] Work Phone: [phone] FS 33 % 28 - 44 % [employer] Work Phone: [phone] Interventricular Septum Diastolic Thickness by 2D 10 cm [employer] Work Phone: [phone] IVS 1.00 cm 0.6 - 1.1 cm [employer] Work Phone: [phone] LA size 3.60 cm [employer] Work Phone: [phone] LA volume 48.00 cm3 [employer] Work Phone: [phone] LA Volume Index 31.8 mL/m2 [employer] Work Phone: [phone] Left Ventricle Mass 122.075549792579168 g [employer] Work Phone: [phone] LV Diastolic Volume 71.20 mL [employer] Work Phone: [phone] LV ESV A2C 56.30 mL [employer] Work Phone: [phone] LV ESV A4C 33.20 mL [employer] Work Phone: [phone] LV RWT 2D 51.28 [employer] Work Phone: [phone] LV Systolic Volume 26.00 mL [employer] Work Phone: [phone] LVIDd 3.90 cm 3.78 - 5.25 cm [employer] Work Phone: [phone] LVIDs 2.60 cm 2.25 - 3.40 cm [employer] Work Phone: [phone] LVOT diameter 1.80 cm [employer] Work Phone: [phone] LVOT peak kym 1.37 m/s [employer] Work Phone: [phone] LVOT peak VTI 25.80 cm [employer] Work Phone: [phone] LVOT stroke volume 65.65 ml [employer] Work Phone: [phone] MV Peak A Kym 99.40 cm/s [employer] Work Phone: [phone] MV Peak E Kym 71.30 cm/s [employer] Work Phone: [phone] MV pressure 1/2 time 55.00 ms [employer] Work Phone: [phone] MV TDI E' (medial) 6.85 cm/s [employer] Work Phone: [phone] MV valve area p 1/2 method 4.00 cm2 [employer] Work Phone: [phone] PV peak gradient 4.16 mmHg [employer] Work Phone: [phone] PW 1.00 cm 0.6 - 1.1 cm [employer] Work Phone: [phone] RV diastolic dimension (basal) 29.0 mm [employer] Work Phone: [phone] TAPSE 1.88 cm [employer] Work Phone: [phone] TDI 9.68 cm/s [employer] Work Phone: [phone] Valve area - Index 1.3 [employer] Work Phone: [phone] ZLVIDD -1.32 [employer] Work Phone: [phone] ZLVIDS -0.48 [employer] Work Phone: [employer] Work Phone: Cardiac echo study Procedure on 09-24-2023 Left Ventricle: Ther e is mild concentric increased wall thickness/hypertrophy. Systolic [...] size. There is mild concentric increased wall thickness/hypertrophy. [...] for comparison. [facility] Radiology Study observation (narrative) [employer] MR BRAIN W WO CONTon 01-31-2 024 MR BRAIN W WO CONT MR [...] No enhancing intracranial mass/lesion. No evidence of pachymeningeal/leptomen ingeal enhancement. Normal appearance of the major arterial structures in the [place]. The paranasal sinuses are clear. [...] Jewell MD on 09/24/2023 4:24 AM Normal [facility] MR Brain WO and W contrast [...] No enhancing intracranial mass/lesion. No evidence of pachymeningeal/leptomen ingeal enhancement. Normal appearance of the major arterial structures in the [place]. The paranasal sinuses are clear. [...] Gilbert Jewell MD on 09/24/2023 4:24 AM RYANMAGilbert Lamb M D - 09/24/2023 MR BRAIN W [...] No enhancing intracranial mass/lesion. No evidence of pachymeningeal/leptomen ingeal enhancement. Normal appearance of the major arterial structures in the [place]. The paranasal sinuses are clear. [...] Gilbert Jewell MD on 09/24/2023 4:24 AM [facility] Radiology Study observation (narrative) [facility] MR ORBIT W WO CONTon 024 [...] No enhancing intracranial mass/lesion. No evidence of pachymeningeal/leptomen ingeal enhancement. Normal appearance of the major arterial structures in the [place]. The paranasal sinuses are clear. [...] Jewell MD on 09/24/2023 4:25 AM Normal [facility] MR Orbit WO and W contrast Raisa Shearer 09-24-2023 EXAM:MR ORBIT W WO C ONT INDICATION: Optic neuritis suspected COMPARISON: CT brain [...] No enhancing intracranial mass/lesion. No evidence of pachymeningeal/leptomen ingeal enhancement. Normal appearance of the major arterial structures in the [place]. The paranasal sinuses are clear. [...] No enhancing intracranial mass/lesion. No evidence of pachymeningeal/leptomen ingeal enhancement. Normal appearance of the major arterial structures in the [place]. The paranasal sinuses are clear. [...] Gilbert Jewell MD on 09/24/2023 4:25 AM [facility] Study observation (narrative) [facility] MR Orbit WO and W contrast I VOrdered By: Gilbert Jewell on 09-24-2023 [facility] Work Phone: Neutrophil cytoplasmic Ab IF Ql (S)on 09-24-2023 [facility] Reticulocyteson 09-24-2023 Reticulocytes/100 RBC (Bld) 2.3 % High 0.4 - 2.2 % [facility] Reticulocytes/100 RBC (Bld)o n 09-24-2023 Interpretation and review of laboratory results Abnormal [facility] RETICULOCYTE COUNT 2.3 % High 0.4-2.2 [facility] Comment on above: Performed By: #### C BCA, CMP, 1988-5, FEPR, 2276-4, 2284-8, 27659-9, 2132-9, 20536-3, 91024-3, 5130-0, 30457-2, 46594-6, 29637-0, 3357-1, 8092-9, 27466-3, 29330-1, 20415-6, 84130-7, 57421-9 #### [facility] ([id number]) [address], [address] [place] [address] ACUTE HEPATITIS PANELon 08-27 ANTI HCV W/PCR REFLX Non-Reactive Normal NRCT Pr [facility] Comment on above: Result Comment: If recent infection suspected, recommend repeat testing (>2 months). Pemhlm-ci-qyvmhn ratio is <0.80. Performed By: #### C BCA, CMP, 1987-12, FEPR, 2276-4, 2284-8, 62391-2, 2132-9, 40687-1, 52533-6, 5130-0, 43496-1, 56104-4, 83042-9, 3357-1, 8092-9, 41719-4, 37761-0, 13983-3, 54564-4, 90350-4 #### [facility] ([id number]) [address] [place] [address], [address] [place] [address] HEPATITIS A IGM Non-Reactive Normal NRCT [facility] Comment on above: Performed By: #### C BCA, CMP, 1987-12, FEPR, 2275-4, 2284-8, 10813-7, 2132-9, 26428-3, 57418-8, 5130-0, 44038-7, 46419-1, 62085-8, 3357-1, 8092-9, 23584-3, 40197-3, 57643-5, 01606-2, 19111-5 #### [facility] ([id number]) [address] [place] [address], [place] [address] HEPATITIS B CORE IGM Negative Normal NEG [facility] Comment on above: Performed By: #### C BCA, CMP, 1987-12, FEPR, 2275-4, 4-8, 12025-6, 2132-9, 71412-2, 83907-2, 5130-0, 51083-7, 59955-6, 17090-5, 3357-1, 8092-9, 70392-2, 85276-2, 62406-0, 83164-2, 06671-2 #### [facility] ([id number]) [address] [place] [address], [address] [place] [address] HEPATITIS B SURF AG Negative Normal NEG [facility] Comment on above: Performed By: #### C BCA, CMP, 1987-12, FEPR, 2276-4, 2284-8, 56845-7, 2132-9, 75022-1, 93010-4, 5130-0, 63372-7, 18792-5, 74235-0, 3357-1, 8092-9, 90245-9, 94469-1, 53713-4, 03634-6, 83797-8 #### [facility] ([id number]) [address] [place] [address], [address] [place] [address] SILVIA Screen w/ Reflexon 09-23 Nuclear Ab IA Ql (S) Positive Abnormal Negativ e^Ne [facility] Comment on above: Testing performed using multiplex flow immunoassay. Eleven different antigens associated with systemic autoimmune diseases (dsDNA,Sm,Sm/PERSONALIZED LIVING MANAGER,PERSONALIZED LIVING MANAGER,Chromatin, SSA,SSB,Tiki-1,Scl70,Ribo P,Centromere B) are included in this screening test. ANTI CARDIOLIPIN AB IGG IGA IGMon 09-23-2023 MIRIAM IgA <2.0 Normal 0-19.9 [facility] Comment on above: Performed By: #### C SHARATH, CMP, 1987-12, FEPR, 2276-4, 2284-8, 14248-6, 2132-9, 14551-0, 56392-3, 5130-0, 59061-7, 77437-9, 51028-6, 3357-1, 8092-9, 91413-1, 36700-1, 33040-0, 14445-5, 04916-9 #### [facility] ([id number]) [facility], [address] [place] [address] MIRIAM IgG <1.6 Normal 0-19.9 [facility] Comment on above: Performed By: #### C BCA, CMP, 1987-12, FEPR, 2276-4, 2284-8, 32326-5, 2132-9, 24414-4, 13893-2, 5130-0, 40159-8, 20762-9, 33269-5, 3357-1, 8092-9, 16481-8, 66987-5, 91410-8, 38307-6, 49010-6 #### [facility] ([id number]) [address] [place] [address], [address] [place] [id number] MIRIAM IgM <1.5 Normal 0-19.9 [facility] Comment on above: Performed By: #### C BCA, CMP, 1987-, FEPR, 2276-4, 2284-8, 90746-8, 2132-9, 13640-9, 78852-5, 5130-0, 81761-3, 23275-2, 56763-8, 3357-1, 8092-9, 35809-5, 15042-2, 63681-9, 36547-0, 52582-9 #### [facility] ([id number]) [address] [place] [address], [address] [place] [id number] Anileridine Ql (U)on 024 JO1 ANTIBODY <0.2 Normal <1.0 [facility] Comment on above: Performed By: #### C BCA, CMP, 1987-, FEPR, 2276-4, 2284-8, 68220-7, 2132-9, 56014-5, 41891-6, 5130-0, 94419-2, 26346-5, 56663-4, 3357-1, 8092-9, 93779-5, 44197-4, 29870-6, 38955-1, 60264-6 #### [facility] ([id number]) [address] [place] [address], [address] [place] [address] Anti cardiolipin AB IgG IgA IgMon 09-23-2023 Cardiolipin IgA IA Qn (S) [facility] Cardiolipin IgG IA Qn (S) [facility] Cardiolipin IgM IA Qn (S) [facility] Anti-Chromatin IGGon 024 Chromatin Ab Ql 0.4 NINF [facility] Comment on above: CLIA ID [id number] Anti-DNA antibody, double-st randedon 09-23-2023 DNA double strand Ab Qn (S) 1 [IU]/mL [facility] Comment on above: Interpretation-------- <5 Negative 5-9 Indeterminate >9 Positive CLIA ID [id number] Anti-Ribosomal P AB IGGon Ribosomal P IgG Qn (S) [facility] Comment on above: CLIA ID [id number] Anti-Mejia AB IGGon 09-23-19 Mejia extractable nuclear IgG Qn (S) [facility] Comment on above: CLIA ID [id number] BETA-2 GP1 AB PANELon 2023 BETA-2 GP1 IgA <2.0 Normal 0.0-19.9 [facility] Comment on above: Performed By: #### C KELVIN EARLY, 1987-12, FEPR, 6-4, 2284-8, 12887-7, 2131-9, 96090-3, 47107-0, 5130-0, 87715-5, 34821-1, 33941-7, 3357-1, 8092-9, 31047-4, 53011-5, 59670-4, 56816-3, 97900-5 #### [facility] ([id number]) [address] [place] [address], [address] [place] [address] BETA-2 GP1 IgG <1.4 Normal 0.0-19.9 [facility] Comment on above: Performed By: #### C KELVIN EARLY, 1987-12, FEPR, 2276-4, 2284-8, 61549-5, 2131-9, 07607-8, 00808-7, 5130-0, 41154-1, 95052-3, 52668-5, 3357-1, 8092-9, 76105-7, 16798-1, 20261-2, 68632-9, 84506-5 #### [facility] ([id number]) [address] [facility], [address] [place] [address] BETA-2 GP1 IgM 4.1 u/mL Normal 0.0-19.9 [facility] Comment on above: Performed By: #### C SHARATH, CMP, 1987-12, FEPR, 2275-4, 2284-8, 50642-3, 2132-9, 37114-5, 68386-4, 5130-0, 06707-6, 72215-8, 24676-2, 3357-1, 8092-9, 36928-1, 81742-3, 35790-5, 56851-8, 76244-1 #### [facility] ([id number]) [address] [place] [address], [address] [place] [address] Beta-2 glycoprotein antibodi eson 09-23-2023 Beta 2 glycoprotein 1 IgA IA Qn u/mL 0.0 - 19.9 u/mL [facility] Beta 2 glycoprotein 1 IgG IA Qn u/mL 0.0 - 19.9 u/mL [facility] Beta 2 glycoprotein 1 IgM IA Qn 4.1 u/mL 0.0 - 19.9 u/mL [facility] C-reactive proteinon 024 CRP [Mass/Vol] 13.3 mg/dL High 0.000 - 0.744 mg/dL [facility] CBC AND AUTO DIFFon 09-23-19 24 ABSOLUTE BASOPHIL 0.0 X10E9/L Normal 0.0-0.2 [facility] Comment on above: Performed By: #### C BCA, CMP, 1987-12, FEPR, 2275-4, 2284-8, 46371-4, 2-9, 27120-3, 66607-8, 5130-0, 99261-5, 24275-7, 16836-6, 3357-1, 8092-9, 34814-1, 73075-5, 99226-2, 44689-3, 32483-6 #### [facility] ([id number]) [address], [address] [place] [address] ABSOLUTE NEUTROPHIL 11.5 X10E9/L High 1.5-6.6 [facility] Comment on above: Performed By: #### C BCA, CMP, 1987-12, FEPR, 2276-4, 2284-8, 52334-1, 2132-9, 06265-3, 61742-9, 5130-0, 06643-7, 38962-9, 41703-6, 3357-1, 8092-9, 01340-6, 00146-3, 23241-7, 25337-4, 85212-0 #### [facility] ([id number]) [address] [facility], [address] [place] [address] Basophils/100 WBC (Bld) 0.2 % Normal [facility] Comment on above: Performed By: #### C BCA, CMP, 1987-12, FEPR, 2275-4, 2284-8, 22021-4, 2132-9, 04725-3, 65156-0, 5130-0, 30486-7, 41875-6, 09686-6, 3357-1, 8092-9, 01088-7, 30801-8, 80555-5, 03311-4, 03449-9 #### [facility] ([id number]) [address], [address] [place] [address] Eosinophils (Bld) [#/Vol] 0.0 10*3/uL Normal 0.0-0.4 [facility] Comment on above: Performed By: #### C BCA, CMP, 1987-12, FEPR, 2276-4, 2284-8, 01100-8, 2132-9, 90927-2, 25921-9, 5130-0, 27448-9, 92865-5, 21524-5, 3357-1, 8092-9, 90481-4, 29374-1, 45930-3, 27590-6, 67498-7 #### [facility] ([id number]) [address], [address] [place] [address] Eosinophils/100 WBC (Bld) 0.0 % Normal [facility] Comment on above: Performed By: #### C BCA, CMP, 1987-12, FEPR, 227-4, 2284-8, 77494-7, 2132-9, 51876-2, 26659-3, 5130-0, 84307-7, 09123-2, 44288-7, 3357-1, 8092-9, 52265-6, 93472-9, 87219-8, 32506-2, 74727-2 #### [facility] ([id number]) [address], [address] [place] [address] Erythrocyte distribution width (RBC) [Ratio] 14.4 % Normal 11.5-15.0 [facility] Comment on above: Performed By: #### C BCA, CMP, 1987-12, FEPR, 2275-4, 2284-8, 38701-8, 2132-9, 58772-3, 94492-5, 5130-0, 92037-0, 96423-8, 68107-8, 3357-1, 8092-9, 42443-3, 59131-6, 09278-7, 09314-7, 67150-0 #### [facility] ([id number]) [address], [address] [place] [address] Hematocrit (Bld) [Volume fraction] 27.8 % Low 35-47 [facility] Comment on above: Performed By: #### C BCA, CMP, 1987-12, FEPR, 2276-4, 2284-8, 54851-9, 2132-9, 24651-5, 45609-6, 5130-0, 71313-8, 16843-7, 60414-8, 3357-1, 8092-9, 90947-2, 78593-2, 49955-4, 12695-2, 41346-2 #### [facility] ([id number]) [address], [address] [place] [address] Hemoglobin (Bld) [Mass/Vol] 9.1 g/dL Low 11.7-15.5 [facility] Comment on above: Performed By: #### C KELVIN EARLY, 1987-12, FEPR, 2275-4, 2283-8, 03145-8, 2132-9, 36430-7, 51566-9, 5130-0, 83365-5, 98923-3, 15679-2, 3357-1, 8092-9, 65323-0, 20514-6, 21872-9, 68012-2, 55023-8 #### [facility] ([id number]) [address], [address] [place] [address] Lymphocytes (Bld) [#/Vol] 0.4 10*3/uL Low 1.0-3.5 [facility] Comment on above: Performed By: #### C KELVIN EARLY, 1987-12, FEPR, 2275-, 2283-8, 46778-4, 2131-9, 42120-4, 10726-3, 5130-0, 15010-8, 50263-5, 76385-3, 3357-1, 8092-9, 95916-7, 01513-4, 39167-7, 48238-3, 46966-0 #### [facility] ([id number]) [address], [address] [place] [address] Lymphocytes/100 WBC (Bld) 3.3 % Normal [facility] Comment on above: Performed By: #### C KELVIN EARLY, 1987-12, FEPR, 2275-4, 4-8, 64211-6, 2132-9, 40757-5, 18821-5, 5130-0, 80754-8, 67960-4, 02325-3, 3357-1, 8092-9, 68756-6, 07861-4, 58885-4, 40392-8, 76440-1 #### [facility] ([id number]) [address], [address] [place] [address] MCH (RBC) [Entitic mass] 27.8 pg Normal 27-34 [facility] Comment on above: Performed By: #### C BCA, CMP, 1987-12, FEPR, 2276-4, 2284-8, 87942-1, 2132-9, 82841-5, 67839-2, 5130-0, 92991-4, 08948-7, 84165-2, 3357-1, 8092-9, 15888-9, 06611-1, 41107-4, 23458-5, 81535-8 #### [facility] ([id number]) [address], [address] [place] [address] MCHC (RBC) [Mass/Vol] 32.7 g/dL Normal 32-36 [facility] Comment on above: Performed By: #### C BCA, CMP, 1987-12, FEPR, 6-4, 2284-8, 72651-1, 2132-9, 50606-3, 38591-6, 5130-0, 62878-9, 59819-6, 20513-7, 3357-1, 8092-9, 50611-4, 55076-8, 66138-7, 74913-2, 83577-0 #### [facility] ([id number]) [address], [address] [place] [address] MCV (RBC) [Entitic vol] 85 fL Normal 80-100 [facility] Comment on above: Performed By: #### C BCA, CMP, 1987-12, FEPR, 2276-4, 2284-8, 03350-9, 2132-9, 74204-2, 13632-3, 5130-0, 33576-2, 93923-3, 02019-9, 3357-1, 8092-9, 78448-7, 83914-9, 68547-9, 79668-6, 64043-6 #### [facility] ([id number]) [address], [address] [place] [address] Monocytes (Bld) [#/Vol] 0.1 10*3/uL Normal 0-0.9 [facility] Comment on above: Performed By: #### C BCA, CMP, 1987-12, FEPR, 2276-4, 2284-8, 69993-4, 2132-9, 30651-3, 45982-0, 5130-0, 72294-3, 89097-1, 42597-9, 3357-1, 8092-9, 56509-1, 22361-8, 20657-7, 75412-5, 87949-8 #### [facility] ([id number]) [address], [address] [place] [address] Monocytes/100 WBC (Bld) 1.0 % Normal [facility] Comment on above: Performed By: #### C BCA, CMP, 1987-12, FEPR, 2276-4, 2284-8, 80005-1, 2132-9, 56308-4, 07214-0, 5130-0, 51940-2, 45600-9, 27328-4, 3357-1, 8092-9, 20929-0, 97654-5, 83906-4, 23923-0, 66930-8 #### [facility] ([id number]) [address], [address] [place] [address] Neutrophils/100 WBC (Bld) 95.5 % Normal [facility] Comment on above: Performed By: #### C BCA, CMP, 1987-12, FEPR, 2276-4, 2284-8, 12300-2, 2132-9, 38797-1, 20275-2, 5130-0, 01418-8, 85908-1, 83067-1, 3357-1, 8092-9, 89017-0, 83370-6, 82035-4, 75783-6, 72427-0 #### [facility] ([id number]) [address], [address] [place] [address] Platelet mean volume (Bld) [Entitic vol] 6.2 fL Low 7-12 [facility] Comment on above: Performed By: #### C SHARATH, CMP, 1987-12, FEPR, 2276-4, 2284-8, 80710-7, 2132-9, 04519-2, 25378-2, 5130-0, 20587-7, 29599-6, 37276-1, 3357-1, 8092-9, 30953-8, 44778-5, 59930-8, 88308-9, 90361-5 #### [facility] ([id number]) [address], [address] [place] [address] Platelets (Bld) [#/Vol] 924 10*3/uL High 150-450 [facility] Comment on above: Performed By: #### C SHARATH, CMP, 1987-12, FEPR, 2276-4, 2284-8, 50015-0, 2132-9, 36088-3, 94385-7, 5130-0, 93769-2, 66337-3, 50766-2, 3357-1, 8092-9, 26689-0, 64178-6, 91709-8, 26362-2, 20707-1 #### [facility] ([id number]) [address], [address] [place] [address] RBC COUNT 3.27 X10E12/L Low 3.80-5.20 [facility] Comment on above: Performed By: #### C BCA, CMP, 1987-12, FEPR, 2276-4, 2284-8, 73851-6, 2132-9, 23660-3, 67173-5, 5130-0, 18046-0, 39704-6, 04027-7, 3357-1, 8092-9, 13162-7, 44778-2, 64142-2, 60563-1, 00026-6 #### [facility] ([id number]) [address] [facility], [address] [place] [address] WBC (Bld) [#/Vol] 12.1 10*3/uL High 4.0-11.0 [facility] Comment on above: Performed By: #### C KELVIN EARLY, 1987-12, FEPR, 2276-4, 2284-8, 81914-8, 2132-9, 37514-0, 65241-8, 5130-0, 02457-9, 16226-4, 84074-2, 3357-1, 8092-9, 54579-4, 93695-9, 16903-3, 32384-7, 35841-1 #### [facility] ([id number]) [address] [facility], [address] [place] [address] ABSOLUTE BASOPHIL 0.2 X10E9/L Normal 0.0-0.2 [facility] Comment on above: Performed By: #### C KELVIN EARLY, 1987-12, FEPR, 6-4, 2284-8, 80081-0, 2132-9, 75931-7, 76027-3, 5130-0, 12911-9, 46141-3, 63123-4, 3357-1, 8092-9, 45789-7, 86147-4, 93975-0, 66876-3, 19957-7 #### [facility] ([id number]) [address] [facility], [address] [place] [address] ABSOLUTE NEUTROPHIL 10.4 X10E9/L High 1.5-6.6 [facility] Comment on above: Performed By: #### C KELVIN EARLY, 1987-12, FEPR, 2276-4, 2284-8, 75205-2, 2132-9, 74045-6, 14064-6, 5130-0, 91406-6, 22844-4, 49500-3, 3357-1, 8092-9, 45159-2, 84006-2, 47331-1, 24429-5, 43365-6 #### [facility] ([id number]) [address], [address] [place] [address] Basophils/100 WBC (Bld) 2.1 % Normal [facility] Comment on above: Performed By: #### C BCA, CMP, 1987-12, FEPR, 2275-4, 2284-8, 66813-7, 2132-9, 29583-8, 99635-4, 5130-0, 63915-8, 62811-6, 97960-8, 3357-1, 8092-9, 79171-5, 64827-7, 42464-4, 53792-7, 83765-2 #### [facility] ([id number]) [address] [facility], [address] [place] [address] Eosinophils (Bld) [#/Vol] 0.0 10*3/uL Normal 0.0-0.4 [facility] Comment on above: Performed By: #### C BCA, CMP, 1987-12, FEPR, 2275-4, 2284-8, 05731-3, 2132-9, 87567-2, 14678-9, 5130-0, 02321-4, 92433-7, 63908-2, 3357-1, 8092-9, 40644-1, 91648-8, 36315-8, 51358-2, 59798-6 #### [facility] ([id number]) [address] [facility], [address] [place] [address] Eosinophils/100 WBC (Bld) 0.0 % Normal [facility] Comment on above: Performed By: #### C SHARATH, CMP, 1987-12, FEPR, 2276-4, 2284-8, 25551-8, 2132-9, 92923-1, 83071-5, 5130-0, 15654-3, 58878-8, 89331-9, 3357-1, 8092-9, 05967-6, 31489-3, 84851-9, 94955-8, 63816-3 #### [facility] ([id number]) [address], [address] [place] [address] Erythrocyte distribution width (RBC) [Ratio] 14.6 % Normal 11.5-15.0 [facility] Comment on above: Performed By: #### C SHARATH, [facility], 1987-12, FEPR, 2276-4, 2284-8, 70068-6, 2132-9, 31602-8, 81729-4, 5130-0, 87864-4, 61745-7, 69776-6, 3357-1, 8092-9, 32408-0, 87071-3, 04214-0, 75499-5, 99562-1 #### [facility] ([id number]) [address], [address] [place] [address] Hematocrit (Bld) [Volume fraction] 26.2 % Low 35-47 [facility] Comment on above: Performed By: #### C SHARATH, CMP, 1987-12, FEPR, 2276-4, 2284-8, 94669-4, 2132-9, 87015-3, 86421-8, 5130-0, 45389-4, 09558-3, 07631-9, 3357-1, 8092-9, 31773-0, 44152-2, 83483-5, 91364-3, 87311-5 #### [facility] ([id number]) [address], [address] [place] [address] Hemoglobin (Bld) [Mass/Vol] 8.6 g/dL Low 11.7-15.5 [facility] Comment on above: Performed By: #### C BCA, CMP, 1987-12, FEPR, 2276-4, 2284-8, 62061-1, 2132-9, 20527-2, 50054-8, 5130-0, 09916-7, 32881-0, 27936-2, 3357-1, 8092-9, 52779-6, 63134-1, 78827-3, 11322-9, 19965-4 #### [facility] ([id number]) [address], [address] [place] [address] Lymphocytes (Bld) [#/Vol] 0.4 10*3/uL Low 1.0-3.5 [facility] Comment on above: Performed By: #### C SHARATH, CMP, 1987-12, FEPR, 2275-4, 4-8, 22525-9, 2132-9, 49375-3, 09615-9, 5130-0, 37973-2, 63902-0, 18311-6, 3357-1, 8092-9, 28202-7, 68648-2, 56908-6, 36539-1, 76353-1 #### [facility] ([id number]) [address], [address] [place] [address] Lymphocytes/100 WBC (Bld) 3.6 % Normal [facility] Comment on above: Performed By: #### C BCA, CMP, 1987-12, FEPR, 2275-4, 2284-8, 28046-0, 2132-9, 77854-2, 92190-6, 5130-0, 84896-8, 58395-2, 96358-9, 3357-1, 8092-9, 86387-5, 03919-2, 93064-0, 81977-4, 79529-0 #### [facility] ([id number]) [address], [address] [place] [address] MCH (RBC) [Entitic mass] 28.1 pg Normal 27-34 [facility] Comment on above: Performed By: #### C SHARATH, CMP, 1987-12, FEPR, 2276-4, 2284-8, 52924-2, 2132-9, 83141-5, 74202-5, 5130-0, 84690-6, 39220-5, 02289-2, 3357-1, 8092-9, 95633-0, 78047-0, 21431-2, 47396-3, 79616-5 #### [facility] ([id number]) [address], [address] [place] [address] MCHC (RBC) [Mass/Vol] 32.9 g/dL Normal 32-36 [facility] Comment on above: Performed By: #### C SHARATH, CMP, 1987-12, FEPR, 227-4, 2284-8, 66532-5, 2132-9, 51744-5, 78676-8, 5130-0, 70384-7, 37947-0, 46189-8, 3357-1, 8092-9, 80302-5, 05981-8, 18014-9, 96514-2, 95652-3 #### [facility] ([id number]) [address], [address] [place] [address] MCV (RBC) [Entitic vol] 85 fL Normal 80-100 [facility] Comment on above: Performed By: #### C BCA, CMP, 1987-12, FEPR, 2276-4, 2284-8, 84345-1, 2132-9, 11692-1, 08708-9, 5130-0, 04365-4, 98828-8, 60166-2, 3357-1, 8092-9, 83657-7, 53659-6, 79416-2, 04287-9, 30764-7 #### [facility] ([id number]) [address], [address] [place] [address] Monocytes (Bld) [#/Vol] 0.1 10*3/uL Normal 0-0.9 [facility] Comment on above: Performed By: #### C SHARATH, CMP, 1987-12, FEPR, 2276-4, 2284-8, 92992-8, 2132-9, 82060-6, 76336-7, 5130-0, 62534-3, 15923-7, 19864-1, 3357-1, 8092-9, 30435-5, 88052-7, 10612-2, 25856-9, 93715-9 #### [facility] ([id number]) [address] [facility], [address] [place] [address] Monocytes/100 WBC (Bld) 1.0 % Normal [facility] Comment on above: Performed By: #### C SHARATH, CMP, 1987-12, FEPR, 227-4, 2284-8, 29927-2, 2132-9, 57772-2, 32835-7, 5130-0, 57454-6, 08237-0, 08969-7, 3357-1, 8092-9, 46206-6, 97580-8, 81386-8, 81084-6, 29100-0 #### [facility] ([id number]) [address] [facility], [address] [place] [address] Neutrophils/100 WBC (Bld) 93.3 % Normal [facility] Comment on above: Performed By: #### C BCA, CMP, 1987-12, FEPR, 2276-4, 2284-8, 88091-1, 2132-9, 98329-0, 09801-6, 5130-0, 89664-1, 50903-0, 10007-0, 3357-1, 8092-9, 46681-4, 78101-4, 64006-2, 37315-1, 69382-5 #### [facility] ([id number]) [address] [facility], [address] [place] [address] Platelet mean volume (Bld) [Entitic vol] 6.3 fL Low 7-12 [facility] Comment on above: Performed By: #### C SHARATH, CMP, 1987-12, FEPR, 2276-4, 2284-8, 39846-6, 2132-9, 44240-3, 89573-6, 5130-0, 47763-0, 36281-1, 75360-4, 3357-1, 8092-9, 97761-0, 64388-9, 89660-4, 84441-7, 73375-4 #### [facility] ([id number]) [address] [place] [address], [address] [place] [address] Platelets (Bld) [#/Vol] 917 10*3/uL High 150-450 [facility] Comment on above: Performed By: #### C SHARATH, KELVIN, 1987-12, FEPR, 227-4, 2284-8, 13632-8, 2132-9, 64191-5, 15131-0, 5130-0, 32563-7, 08385-2, 55590-6, 3357-1, 8092-9, 94929-2, 83965-5, 89412-1, 18032-2, 29452-3 #### [facility] ([id number]) [address] [place] [address], [address] [place] [address] RBC COUNT 3.07 X10E12/L Low 3.80-5.20 [facility] Comment on above: Performed By: #### C SHARATH, CMP, 1987-12, FEPR, 2276-4, 2284-8, 17168-4, 2132-9, 82318-1, 40566-9, 5130-0, 70029-4, 77285-1, 36437-0, 3357-1, 8092-9, 95332-0, 63870-7, 45024-8, 68613-2, 38722-2 #### [facility] ([id number]) [address] [facility], [address] [place] [address] WBC (Bld) [#/Vol] 11.1 10*3/uL High 4.0-11.0 [facility] Comment on above: Performed By: #### C BCA, CMP, 1988-5, FEPR, 2276-4, 2284-8, 22405-0, 2132-9, 40769-9, 18593-9, 5130-0, 81199-7, 38928-6, 81238-6, 3357-1, 8092-9, 14917-9, 40144-0, 43568-1, 48650-9, 46274-8 #### [facility] ([id number]) [address], [address] [place] [address] CBC auto differentialon 08-27 Basophils (Bld) [#/Vol] 0.0 10*3/uL [facility] Basophils/100 WBC (Bld) 0.2 % [facility] Eosinophils (Bld) [#/Vol] 0.0 10*3/uL [facility] Eosinophils/100 WBC (Bld) 0.0 % [facility] Erythrocyte distribution width (RBC) [Ratio] 14.4 % 11.5 - 15.0 % [facility] Hematocrit (Bld) [Volume fraction] 27.8 % Low 35 - 47 % [facility] Hemoglobin (Bld) [Mass/Vol] 9.1 g/dL Low 11.7 - 15.5 g/dL [facility] Interpretation and review of laboratory results Abnormal [facility] Lymphocytes (Bld) [#/Vol] 0.4 10*3/uL Low [facility] Lymphocytes/100 WBC (Bld) 3.3 % [facility] MCH (RBC) [Entitic mass] 27.8 pg 27 - 34 pg [facility] MCHC (RBC) [Mass/Vol] 32.7 g/dL 32 - 3 6 g/dL [facility] MCV (RBC) [Entitic vol] 85 fL 80 - 100 fL [facility] Monocytes (Bld) [#/Vol] 0.1 10*3/uL [facility] Monocytes/100 WBC (Bld) 1.0 % P [facility] Neutrophils (Bld) [#/Vol] 11.5 10*3/uL High [facility] Neutrophils/100 WBC (Bld) 95.5 % [facility] Platelet mean volume (Bld) [Entitic vol] 6.2 fL Low 7 - 12 fL [facility] Platelets (Bld) [#/Vol] 924 10*3/uL High [facility] RBC (Bld) [#/Vol] 3.27 10*6/uL Low [facility] WBC corrected for nucl RBC Auto (Bld) [#/Vol] 12.1 High [facility] Basophils (Bld) [#/Vol] 0.2 10*3/uL [facility] Basophils/100 WBC (Bld) 2.1 % [facility] Eosinophils (Bld) [#/Vol] 0.0 10*3/uL [facility] Eosinophils/100 WBC (Bld) 0.0 % [facility] Erythrocyte distribution width (RBC) [Ratio] 14.6 % 11.5 - 15.0 % [facility] Hematocrit (Bld) [Volume fraction] 26.2 % Low 35 - 47 % [facility] Hemoglobin (Bld) [Mass/Vol] 8.6 g/dL Low 11.7 - 15.5 g/dL [facility] Interpretation and review of laboratory results Abnormal [facility] Lymphocytes (Bld) [#/Vol] 0.4 10*3/uL Low [facility] Lymphocytes/100 WBC (Bld) 3.6 % [facility] MCH (RBC) [Entitic mass] 28.1 pg 27 - 34 pg [facility] MCHC (RBC) [Mass/Vol] 32.9 g/dL 32 - 3 6 g/dL [facility] MCV (RBC) [Entitic vol] 85 fL 80 - 100 fL [facility] Monocytes (Bld) [#/Vol] 0.1 10*3/uL [facility] Monocytes/100 WBC (Bld) 1.0 % [facility] Neutrophils (Bld) [#/Vol] 10.4 10*3/uL High [facility] Neutrophils/100 WBC (Bld) 93.3 % [facility] Platelet mean volume (Bld) [Entitic vol] 6.3 fL Low 7 - 12 fL [facility] Platelets (Bld) [#/Vol] 917 10*3/uL High [facility] RBC (Bld) [#/Vol] 3.07 10*6/uL Low [facility] WBC corrected for nucl RBC Auto (Bld) [#/Vol] 11.1 High [facility] COMPREHENSIVE METABOLIC PANE Cole 09-23-2023 Albumin [Mass/Vol] 3.0 g/dL Low 3.2-5.3 [facility] Comment on above: Performed By: #### C BCA, CMP, 1987-12, FEPR, 2276-4, 2284-8, 70450-2, 2132-9, 58997-7, 06398-2, 5130-0, 69145-6, 24242-2, 72818-3, 3357-1, 8092-9, 74275-4, 82531-2, 74531-8, 03850-7, 82681-6 #### [facility] ([id number]) [address], [address] [place] [address] ALP [Catalytic activity/Vol] 227 U/L High 39-130 [facility] Comment on above: Performed By: #### C BCA, CMP, 1987-12, FEPR, 2276-4, 2284-8, 29688-2, 213-9, 23811-2, 94478-2, 5130-0, 92803-8, 69625-7, 89057-1, 3357-1, 8092-9, 88016-4, 16861-2, 01579-4, 51191-8, 15214-9 #### [facility] ([id number]) [address], [address] [place] [address] ALT [Catalytic activity/Vol] 11 U/L Normal 0-31 [facility] Comment on above: Performed By: #### C BCA, CMP, 1987-12, FEPR, 2276-4, 2284-8, 11528-9, 2132-9, 77305-7, 80935-8, 5130-0, 14818-1, 82863-6, 19126-0, 3357-1, 8092-9, 63174-4, 42639-3, 07469-3, 32779-1, 50724-4 #### [facility] ([id number]) [address], [address] [place] [address] Anion gap [Moles/Vol] 13 mmol/L Normal 5-15 [facility] Comment on above: Performed By: #### C BCA, CMP, 1987-12, FEPR, 227-4, 2284-8, 81817-2, 2132-9, 57488-2, 66502-4, 5130-0, 13580-9, 67757-3, 10578-5, 3357-1, 8092-9, 05568-3, 88592-4, 00939-1, 81065-3, 83682-1 #### [facility] ([id number]) [address], [address] [place] [address] AST [Catalytic activity/Vol] 12 U/L Normal 0-41 [facility] Comment on above: Performed By: #### C BCA, CMP, 1987-12, FEPR, 2276-4, 2284-8, 19900-9, 2132-9, 01365-6, 38719-9, 5130-0, 28953-1, 71710-4, 21623-7, 3357-1, 8092-9, 22784-1, 53556-2, 05755-1, 65354-3, 11901-4 #### [facility] ([id number]) [address] [facility], [address] [place] [address] Bilirubin [Mass/Vol] 0.6 mg/dL Normal 0.3-1.2 [facility] Comment on above: Performed By: #### C BCA, CMP, 1987-12, FEPR, 2276-4, 2284-8, 67239-6, 2132-9, 88779-3, 93868-0, 5130-0, 20749-6, 93783-1, 22202-3, 3357-1, 8092-9, 45945-7, 88201-4, 78703-3, 38787-7, 50178-7 #### [facility] ([id number]) [facility], [address] [place] [address] Calcium [Mass/Vol] 8.6 mg/dL Normal 8.5-10.5 [facility] Comment on above: Performed By: #### C BCA, CMP, 1987-12, FEPR, 227-4, 2284-8, 71263-6, 2132-9, 18859-8, 40862-8, 5130-0, 47785-1, 03350-0, 93539-9, 3357-1, 8092-9, 51280-9, 98743-7, 48516-6, 20080-8, 44888-8 #### [facility] ([id number]) [address] [facility], [address] [place] [address] Chloride [Moles/Vol] 101 mmol/L Normal 98-109 [facility] Comment on above: Performed By: #### C BCA, CMP, 1987-12, FEPR, 2276-4, 2284-8, 46798-7, 2132-9, 60204-7, 68904-5, 5130-0, 40330-5, 37994-3, 39427-8, 3357-1, 8092-9, 56353-8, 60015-2, 35162-0, 56372-0, 97457-7 #### [facility] ([id number]) [address] [place] [address], [address] [place] [address] CO2 [Moles/Vol] 25 mmol/L Normal 22-32 [facility] Comment on above: Performed By: #### C SHARATH, CMP, 1987-12, FEPR, 6-4, 2284-8, 76851-2, 2132-9, 74003-0, 36966-1, 5130-0, 86580-3, 57965-6, 73182-3, 3357-1, 8092-9, 97661-9, 19484-8, 46833-3, 76114-7, 36844-7 #### [facility] ([id number]) [address] [place] [address], [address] [address] Creatinine [Mass/Vol] 0.49 mg/dL Normal 0.40-1.00 [facility] Comment on above: Result Comment: METH OD TRACEABLE TO IDMS STANDARD Performed By: #### C SHARATH, KELVIN, 1987-12, FEPR, 2275-4, 2284-8, 32278-1, 2132-9, 64161-4, 80651-0, 5130-0, 98333-0, 35244-8, 80982-0, 3357-1, 8092-9, 33647-1, 28948-9, 81777-4, 34975-9, 23567-3 #### [facility] ([id number]) [address] [place] [address], [address] [address] eGFR (CKD-EPI) NON-RACE DEPENDENT >90 Normal >59 [facility] Comment on above: Result Comment: Reported eGFR is based on the CKD-EPI 2020 equation that does not use a race coefficient. Performed By: #### C SHARATH, CMP, 1987-12, FEPR, 227-4, 2284-8, 64517-9, 2132-9, 39834-5, 70821-8, 5130-0, 33245-7, 17748-8, 74077-2, 3357-1, 8092-9, 44421-6, 49187-4, 65286-6, 01005-5, 05437-8 #### [facility] ([id number]) [address], [address] [place] [address] Glucose [Mass/Vol] 141 mg/dL High 65-99 [facility] Comment on above: Performed By: #### C BCA, CMP, 1987-12, FEPR, 2275-4, 2283-8, 87447-0, 213-9, 07634-9, 16515-6, 5130-0, 07881-9, 07005-7, 19355-1, 3357-1, 8092-9, 85890-8, 94089-3, 86485-0, 63123-3, 61087-1 #### [facility] ([id number]) [facility], [address] [place] [address] Potassium [Moles/Vol] 3.7 mmol/L Normal 3.5-5.0 [facility] Comment on above: Performed By: #### C BCA, CMP, 1987-12, FEPR, 2275-4, 2283-8, 95133-3, 2131-9, 38717-1, 12516-6, 5130-0, 26970-6, 70991-2, 58063-2, 3357-1, 8092-9, 45261-5, 83348-3, 31591-3, 60713-9, 58465-9 #### [facility] ([id number]) [address] [facility], [address] [place] [address] Protein [Mass/Vol] 6.9 g/dL Normal 6.0-8.0 [facility] Comment on above: Performed By: #### C BCA, CMP, 1987-12, FEPR, 2275-4, 2284-8, 24397-1, 2132-9, 82889-0, 55324-0, 5130-0, 08047-6, 39532-9, 27721-2, 3357-1, 8092-9, 69920-2, 87127-7, 67496-2, 06804-6, 18652-6 #### [facility] ([id number]) [address] [facility], [address] [place] [address] Sodium [Moles/Vol] 139 mmol/L Normal 134-146 [facility] Comment on above: Performed By: #### C BCA, CMP, 1987-12, FEPR, 2275-4, 2284-8, 98124-6, 2132-9, 24464-1, 17492-2, 5130-0, 23243-7, 78652-3, 45704-2, 3357-1, 8092-9, 96473-1, 70026-4, 66431-0, 09194-3, 99643-7 #### [facility] ([id number]) [address] [place] [address], [address] [place] [address] Urea nitrogen [Mass/Vol] 14 mg/dL Normal 5-27 [facility] Comment on above: Performed By: #### C BCA, CMP, 1987-12, FEPR, 2275-4, 2284-8, 88941-3, 2132-9, 11424-3, 06889-1, 5130-0, 00107-0, 67849-9, 57881-3, 3357-1, 8092-9, 54534-6, 73242-4, 58539-1, 83949-8, 44190-2 #### [facility] ([id number]) [address] [place] [address], [address] [place] [address] CRP [Mass/Vol]on 09-23-2023 C REACTIVE PROTEIN 13.3 mg/dL High 0.000-0.744 [facility] Comment on above: Performed By: #### C BCA, CMP, 1987-12, FEPR, 2275-4, 2284-8, 24152-4, 2132-9, 32874-0, 23591-3, 5130-0, 96784-3, 14007-2, 79122-5, 3357-1, 8092-9, 78656-4, 03598-5, 75522-8, 12618-2, 27248-0 #### [facility] ([id number]) [address], [address] [place] [address] Centromere ABon 09-23-2023 Centromere protein B Ab Ql (S) High [facility] Comment on above: CLIA ID [id number] Centromere protein B Ab Ql ( S)on 09-23-2023 Interpretation and review of laboratory results Abnormal [facility] CENTROMERE ANTIBODY >8.0 High <1.0 [facility] Comment on above: Performed By: #### C BCA, CMP, 1987-12, FEPR, 2276-4, 2284-8, 85521-8, 2132-9, 78434-8, 59065-8, 5130-0, 63090-1, 54585-3, 50947-7, 3357-1, 8092-9, 62447-3, 16359-2, 85274-1, 58745-2, 65266-1 #### [facility] ([id number]) [address], [address] [place] [address] Chromatin Ab Qlon 09-23-2023 CHROMATIN AB IGG 0.4 AI Normal <1.0 [facility] Comment on above: Performed By: #### C BCA, CMP, 1987-12, FEPR, 2276-4, 2284-8, 95332-6, 2132-9, 10212-7, 34168-4, 5130-0, 88760-2, 50080-4, 11186-1, 3357-1, 8092-9, 74869-7, 16542-0, 70953-5, 25389-0, 18794-5 #### [facility] ([id number]) [address] [facility], [address] [place] [address] Clinical Pathologyon 024 Clinical Pathology Normal [facility] Comment on above: Result Comment: [facility] [employer] [facility] [address] [place] [address] Clinical Pathology Report Patient Name:JOSE DAVID:1945 (Age: 78)Gender:FTaken:4Reported:09/27/2023hysician(s):Olga Pan M.D. ([phone])Copy To: Rec. #:[id number]: #[id number] Final Pathologic Diagnosis Hypoalbuminemia with increase in acute phase reactants. No monoclonal bands identified. Report Electronically Signed Out df/09/27/2023kevin Bains MD [facility]ation [facility] [place] [address], License number: [id number]. Clinical History E53.8, H53.8, R29.90. SERUM PROTEIN ELECTROPHORESIS SAMPLE NO: [id number] ELECTROPHORETIC FRACTION CONCENTRATIONS (g/dL) PATIENT REFERENCE RANGE [...] IgA : 180 IgM : 285 Free Hoffman: 2.91 Free Lambda: 2.38 Free Hoffman/Lambda ratio: 1.22 Specimen(s) Received 1: Serum Protein Electrophoresis 2: Serum IEP Fee Codes(s): 1; 56975-07 2; 39716-69 Clinical Pathology Blood Sme ar Reviewon 09-23-2023 Clinical Pathology Blood Smear Review Normal [facility] Comment on above: Result Comment: [facility] [address] [place] [address] Clinical Pathology Report Patient Name:JOSE DAVID:1945 (Age: 78)Gender:FTaken:09/23/2023eported:09/26/2023hysician(s):Olga Pan M.D. ([phone])Copy To: Rec. #:[id number]: #[id number] Final Pathologic Diagnosis Peripheral blood smear: Neutrophilic [...] correlation is recommended. Report Electronically Signed Out hna09/26/2023Og Martinez M.D. [place]ation [place] [address], License number: [id number]. Clinical History R29.9. BLOOD SMEAR EVALUATION CBC (09/23/2023 0818): WBC = 12.1 X10E9/L; HGB = 9.1 g/dL; HCT = 27.8%; MCV = 85 fL; PLT = 924 X10E9/L OTHER LAB DATA: Noncontributory. BLOOD SMEAR: Leukocytes: Neutrophilic leukocytosis with cytotoxic changes and lymphocytopenia. Erythrocytes: Moderate normocytic normochromic anemia. Platelets: Thrombocytosis. Specimen(s) Received Blood Smear Review Fee Codes(s): 1; 85909 Cobalamin (Vitamin B12) [Mas s/Vol]on [facility]-23-2023 [facility] Comprehensive metabolic pane cole 09-23-2023 Albumin [Mass/Vol] 3.0 g/dL Low 3.2 - 5.3 g/dL [facility] ALP [Catalytic activity/Vol] 227 U/L High 39 - 130 U/L [facility] ALT No additional P-5'-P [Catalytic activity/Vol] 11 U/L 0 - 31 U/L [facility] Anion gap [Moles/Vol] 13 mmol/L 5 - 15 mmol/L [facility] AST [Catalytic activity/Vol] 12 U/L 0 - 41 U/L [facility] Bilirubin [Mass/Vol] 0.6 mg/dL 0.3 - 1 .2 mg/dL [facility] Calcium [Mass/Vol] 8.6 mg/dL 8.5 - 10. 5 mg/dL [facility] Chloride [Moles/Vol] 101 mmol/L 98 - 10 9 mmol/L [facility] CO2 [Moles/Vol] 25 mmol/L 22 - 32 mmol/L [facility] Creatinine [Mass/Vol] 0.49 mg/dL 0.40 - 1.00 mg/dL [facility] Comment on above: METHOD TRACEABLE TO [facility] STANDARD eGFR (CKD-EPI)non-race dependent - PINF [facility] Comment on above: Reported eGFR is based on the CKD-EPI 2020 equation that does not use a race coefficient. Glucose [Mass/Vol] 141 mg/dL High 65 - 99 mg/dL [facility] Potassium [Moles/Vol] 3.7 mmol/L 3.5 - 5.0 mmol/L [facility] Protein [Mass/Vol] 6.9 g/dL 6.0 - 8.0 g/dL [facility] Sodium [Moles/Vol] 139 mmol/L 134 - 146 mmol/L [facility] Urea nitrogen [Mass/Vol] 14 mg/dL 5 - 27 mg/dL [facility] DNA double strand Ab Qn (S)o n 09-23-2023 DOUBLE STRANDED DNA 1 IU/ML Normal <5 [facility] Comment on above: Result Comment: Interpretation-------- <5 Negative 5-9 Indeterminate >9 Positive Performed By: #### C BCA, CMP, 1987-12, FEPR, 2276-4, 2284-8, 68232-4, 2132-9, 54340-6, 03691-8, 5130-0, 75583-7, 13844-2, 21104-9, 3357-1, 8092-9, 30101-3, 70515-4, 99628-3, 18574-1, 84774-5 #### [facility] ([id number]) [address] [facility], [address] [place] [address] Direct Coombson 09-23-2023 Polyspecific HENRRY Negative [facility] ESR Photometric method (Bld) [Velocity]on 09-23-2023 Interpretation and review of laboratory results Abnormal [facility] ESR, ERYTHROCYTE SEDIMENTATION RATE 114 mm/h High 0-30 [facility] Comment on above: Performed By: #### C BCA, CMP, 1987-12, FEPR, 2275-4, 2284-8, 28498-5, 2132-9, 88168-7, 32571-3, 5130-0, 39012-7, 89545-4, 11814-4, 3357-1, 8092-9, 93684-7, 03391-8, 33863-3, 33057-6, 65955-2 #### [facility] ([id number]) [address] [facility], [address] [place] [address] Erythrocyte Sedimentation Ra te (ESR)on 09-23-2023 ESR Photometric method (Bld) [Velocity] 114 mm/h High 0 - 30 mm/h [facility] FERRITINon 09-23-2023 Ferritin [Mass/Vol] 478 ng/mL High 11-307 [facility] Comment on above: Performed By: #### C BCA, CMP, 1987-12, FEPR, 2276-4, 2284-8, 26870-9, 2132-9, 40043-6, 40070-8, 5130-0, 72638-2, 30748-6, 21975-1, 3357-1, 8092-9, 34153-0, 51902-6, 22355-3, 45884-0, 98857-8 #### [facility] ([id number]) [address] [facility], [address] [place] [address] FLOW CYTOMETRYon 09-23-2023 FLOW CYTOMETRY SEE SEPARATE REPORT, REVIEWED BY PATHOLOGIST Normal [facility] Comment on above: Performed By: #### C BCA, CMP, 1987-12, FEPR, 2275-4, 2284-8, 38063-7, 2132-9, 74188-8, 55769-4, 5130-0, 23932-8, 36604-0, 23717-5, 3357-1, 8092-9, 87922-0, 47294-2, 94184-1, 33926-0, 83598-7 #### [facility] ([id number]) [address] [place] [address], [address] [place] [address] Ferritinon 09-23-2023 Ferritin [Mass/Vol] 478 ng/mL High 11 - 307 ng/mL [facility] Ferritin [Mass/Vol]on 2023 Interpretation and review of laboratory results Abnormal [facility] Folateon 09-23-2023 Folate [Mass/Vol] 13.0 ng/mL 5.8 - PINF ng/mL [facility] Comment on above: NEW REFERENCE RANGE Folate [Mass/Vol]on 09-23-19 24 [facility] FOLIC ACID 13.0 ng/mL Normal >5.8 [facility] Comment on above: Result Comment: NEW REFERENCE RANGE Performed By: #### C BCA, CMP, 1987-12, FEPR, 6-4, 2284-8, 36598-4, 2132-9, 23844-4, 84841-9, 5130-0, 79618-3, 77729-9, 39891-3, 3357-1, 8092-9, 94890-1, 03026-1, 46622-6, 83030-6, 49307-3 #### [facility] ([id number]) [address] [facility], [address] [place] [address] Haptoglobinon 09-23-2023 Haptoglobin Nephelometry [Mass/Vol] 613 mg/dL High 32 - 228 mg/dL [facility] Haptoglobin Nephelometry [Ma ss/Vol]on 09-23-2023 Interpretation and review of laboratory results Abnormal [facility] HAPTOGLOBIN 613 mg/dL High 32-228 [facility] Comment on above: Performed By: #### C SHARATH, KELVIN, 1987-12, FEPR, 2275-4, 2283-8, 07819-4, 2131-9, 08846-7, 78989-7, 5130-0, 27064-4, 13292-0, 79180-5, 3357-1, 8092-9, 97083-6, 72781-8, 31455-7, 22359-1, 03870-1 #### [facility] ([id number]) [address] [facility], [address] [place] [address] Hepatitis panel, acuteon HAV IgM IA Ql Non-Reactive Non-Reactiv e^Non-React harshil [facility] HBV core IgM IA Ql Negative Negative^ [facility] HBV surface Ag IA Ql Negative Negativ e^[facility] HCV Ab IA Ql Non-Reactive Non-Reactiv e^Non-React harshil [facility] Comment on above: If recent infection suspected, recommend repeat testing (>2 months). Tcpdwq-rv-lwqlij ratio is <0.80. [facility] Homocysteine [Moles/Vol]on 0 09-23-2023 HOMOCYSTEINE 9.29 mcmol/L Normal 3.36-20.44 [facility] Comment on above: Performed By: #### C SHARATH, CMP, 1987-12, FEPR, 6-4, 2283-8, 51443-7, 9, 75149-2, 52973-2, 5130-0, 33929-1, 83157-0, 76126-1, 3357-1, 8092-9, 38606-6, 65937-4, 41055-5, 19126-9, 35612-8 #### [facility] ([id number]) [address] [facility], [address] [place] [address] [facility] Homocysteine totalon 024 Homocysteine [Moles/Vol] 9.29 umol/L [facility] IMMUNOELECTROPHORESIS FOR TH ERAPY MONITORINGon 09-23-2023 FREE KECIA/LAMBD RATIO 1.22 Normal 0.26-1.65 [facility] Comment on above: Performed By: #### C BCA, CMP, 1987-12, FEPR, 2276-4, 2284-8, 76126-8, 2132-9, 00160-1, 74967-3, 5130-0, 35874-4, 09435-5, 27273-4, 3357-1, 8092-9, 18565-2, 35094-3, 50822-9, 91883-0, 98445-6 #### [facility] ([id number]) [address] [facility], [address] [place] [address] FREE KAPPA LT CHAINS 2.91 mg/dL High 0.33-1.94 [facility] Comment on above: Performed By: #### C BCA, CMP, 1987-12, FEPR, 2276-4, 2284-8, 66000-6, 2132-9, 48668-0, 21342-1, 5130-0, 47649-3, 12630-9, 84662-2, 3357-1, 8092-9, 96534-7, 06444-8, 53236-9, 23921-2, 32510-4 #### [facility] ([id number]) [address] [facility], [address] [place] [address] FREE LAMBDA LT CHAINS 2.38 mg/dL Normal 0.57-2.63 [facility] Comment on above: Performed By: #### C BCA, CMP, 1987-12, FEPR, 2276-4, 2284-8, 69992-4, 2132-9, 39991-0, 46863-7, 5130-0, 98250-8, 93966-9, 39801-5, 3357-1, 8092-9, 16981-3, 51673-5, 96371-6, 02619-0, 58660-0 #### [facility] ([id number]) [address], [address] [place] [address] IgA [Mass/Vol] 180 mg/dL Normal 68-378 [facility] Comment on above: Performed By: #### C BCA, CMP, 1987-12, FEPR, 2276-4, 2284-8, 65004-1, 2132-9, 86819-8, 70136-2, 5130-0, 94725-8, 60906-3, 79278-8, 3357-1, 8092-9, 03692-9, 58163-7, 68566-2, 96969-8, 15254-1 #### [facility] ([id number]) [address], [address] [place] [address] IgG [Mass/Vol] 992 mg/dL Normal 635-1741 [facility] Comment on above: Performed By: #### C BCA, CMP, 1987-12, FEPR, 2276-4, 2284-8, 91046-4, 2132-9, 11079-8, 33658-0, 5130-0, 97479-6, 19390-7, 48246-3, 3357-1, 8092-9, 47637-2, 43884-8, 46713-5, 18034-1, 13420-8 #### [facility] ([id number]) [address], [address] [place] [address] IgM [Mass/Vol] 285 mg/dL High 45-281 [facility] Comment on above: Performed By: #### C BCA, CMP, 1987-12, FEPR, 2276-4, 2284-8, 24545-8, 2132-9, 64426-5, 11837-8, 5130-0, 15887-1, 47818-7, 11463-1, 3357-1, 8092-9, 63567-0, 22311-3, 38588-3, 87620-8, 65540-4 #### [facility] ([id number]) [address] [facility], [address] [place] [address] IMMUNE PROFILE INTERP SEE SEPARATE REPORT Normal [facility] Comment on above: Performed By: #### C BCA, CMP, 1987-12, FEPR, 2276-4, 2284-8, 15101-4, 2132-9, 71554-0, 63621-3, 5130-0, 12702-3, 91000-7, 00089-7, 3357-1, 8092-9, 03864-9, 21328-6, 89465-3, 58192-7, 31617-5 #### [facility] ([id number]) [address], [address] [place] [address] IRON PROFILEon 09-23-2023 Iron [Mass/Vol] 25 ug/dL Low 50-170 [facility] Comment on above: Performed By: #### C BCA, CMP, 1987-12, FEPR, 227-4, 2284-8, 28983-3, 2132-9, 80115-1, 43782-8, 5130-0, 94238-6, 54454-8, 67916-7, 3357-1, 8092-9, 75952-9, 64184-8, 00523-8, 90875-0, 49320-6 #### [facility] ([id number]) [address] [facility], [address] [place] [address] IRON BINDING 179 ug/dL Low 250-425 [facility] Comment on above: Performed By: #### C BCA, CMP, 1987-, FEPR, 2276-4, 2284-8, 98795-2, 2132-9, 15039-7, 92099-8, 5130-0, 60984-0, 43668-0, 46517-6, 3357-1, 8092-9, 43090-4, 89096-9, 18960-4, 65635-6, 49839-5 #### [facility] ([id number]) [address] [facility], [address] [place] [address] IRON SATURATION 14 % SATURATION Low 15-50 [facility] Comment on above: Performed By: #### C BCA, CMP, 1987-12, FEPR, 2276-4, 2284-8, 96660-0, 2132-9, 52344-7, 94876-3, 5130-0, 71228-9, 92235-5, 40192-1, 3357-1, 8092-9, 17187-0, 38082-9, 02991-4, 55471-4, 05242-6 #### [facility] ([id number]) [address] [place] [address], [address] [place] [address] Iron and TIBCon 09-23-2023 Interpretation and review of laboratory results Abnormal [facility] Iron [Mass/Vol] 25 ug/dL Low 50 - 170 ug/dL [facility] Iron binding capacity [Mass/Vol] 179 ug/dL Low 250 - 425 ug/dL [facility] Iron saturation [Mass fraction] 14 Low [facility] JAK2 gene p.Dte000Xnb Molgen Ql (Bld/Tiss)on 09-23-2023 JAK2 V617F MUTATION, BLOOD SEE COMMENTS 09/26/2023 10:21 AM Normal [facility] Comment on above: Result Comment: NOTE Test Result Flag Unit RefValue ----- JAK2 V617F Mutation Detection, B JAK2 Result see interpretation JAK2 V617F Mutation Detection, B See Note Peripheral blood, JAK2 V617F mutation analysis: Negative for JAK2 V617F. A negative [id number] test result does not exclude the possibility [...] assay has been determined at 0.06% (see [facility] Interpretive Handbook for method details). This test was developed and its performance characteristics determined by [facility] in a manner consistent with CLIA requirements. This test has not been cleared or approved by the U.S. Food and Drug Administration. Test Performed by: [facility] - [address] [address] Registered Radiologic Technologist: Thierry Duran M.D. Ph.D.; CLIA# [id number] Performed By: #### C BCA, CMP, 1988-5, FEPR, 2276-4, 2284-8, 70967-9, 2132-9, 06555-0, 69941-7, 5130-0, 71518-8, 65296-3, 24874-1, 3357-1, 8092-9, 75813-0, 47087-2, 24608-4, 19637-3, 42336-7 #### [facility] ([id number]) [address] [place] [address], [address] [place] [address] Tiki 1 AB IGGon 09-23-2023 Anileridine Ql (U) NINF [facility] LDHon 09-23-2023 LDH [Catalytic activity/Vol] 140 U/L 100 - 235 U/L [facility] LDH [Catalytic activity/Vol] on 09-23-2023 [facility] LDH 140 U/L Normal 100-235 [facility] Comment on above: Performed By: #### C BCA, CMP, 1988-5, FEPR, 2276-4, 2284-8, 28477-8, 2132-9, 44428-7, 34148-3, 5130-0, 09367-3, 08365-7, 68973-8, 3357-1, 8092-9, 36582-5, 07781-5, 49683-8, 16818-4, 32215-6 #### [facility] ([id number]) [address] [place] [address], [address] [place] [address] Methylmalonate [Moles/Vol]on 09-23-2023 MMA QN 0.23 umol/L Normal <=0.40 [facility] Comment on above: Result Comment: NOTE This test was developed and its performance characteristics determined by [facility] [place] ([facility]). It has not been cleared or approved by the FDA. [facility] is regulated under CLIA as qualified to perform high-complexity testing. This test is used for clinical purposes. It should not be regarded as investigational or for research. Test Performed By: [facility] [employer] [address] [place] [address] [employer] Operator: Meño Hernandez III, M.D. [place] #[id number] Narrative diagnostic report Molgen Yaw (Bld/Tiss) [Interp]on 09-23-2023 BCR/ABL PCR w/Reflex SEE COMMENTS 2023 04:24 PM Normal [facility] Comment on above: Result Comment: NOTE Test Result Flag Unit RefValue ----- BCR/ABL1 Reflex, Qual/Quant Specimen Type EDTA WHOLE BLOOD BCR/ABL1 Reflex Result see interpretation Interpretation See Note Peripheral blood, BCR/ABL1 mRNA analysis, qualitative: Negative. No BCR/ABL1 mRNA transcripts were detected. Method summary: The presence or absence of BCR/ABL1 mRNA transcripts was evaluated using a qualitative, reverse clinic md associate PCR-based assay. The assay detects nearly all published and theoretical BCR/ABL1 fusion forms including the common e13/e14-a2 (p210) and e1-a2 (p190) transcripts, as well as other rarer variants (e.g. e19-a2 (p230), e13/e14-a3, e1-a3, etc.). The limit of detection for this assay is 0.1%. Please contact the lab at [phone] with questions or if additional testing is required. See [facility] [employer] Test Catalog for additional method details. Signing Pathologist: Ammon Titus M.D. (Jane), Ph.D. ADDITIONAL INFORMATION This test was developed and its performance characteristics determined by [facility] in a manner consistent with CLIA requirements. This test has not been cleared or approved by the U.S. Food and Drug Administration. Test Performed by: [place] [address] Registered Radiologic Technologist: Thierry Duran M.D. Ph.D.; CLIA# [id number] Neutrophil cytoplasmic Ab IF Ql (S)on 09-23-2023 ANCA See Below Normal [facility] Comment on above: Result Comment: NOTE [...] results and clinical correlation. Test Performed By: [place] [address] [employer] Operator: Meño Hernandez III, M.D. IA #[id number] No Panel Informationon 09-23 [facility] Interpretation and review of laboratory results Abnormal [facility] Nuclear Ab IA Ql (S)on 09-23 Interpretation and review of laboratory results Abnormal [facility] SILVIA Screen w/reflex Positive Abnormal NEG [facility] Comment on above: Result Comment: Testing performed using multiplex flow immunoassay. Eleven different antigens associated with systemic autoimmune diseases (dsDNA,Sm,Sm/PERSONALIZED LIVING MANAGER,PERSONALIZED LIVING MANAGER,Chromatin, SSA,SSB,Tiki-1,Scl70,Ribo P,Centromere B) are included in this screening test. Performed By: #### C BCA, CMP, 1988-5, FEPR, 2276-4, 2284-8, 01742-6, 2132-9, 88339-9, 09075-7, 5130-0, 70607-4, 91503-3, 00481-1, 3357-1, 8092-9, 49422-7, 82645-7, 10476-9, 35251-0, 30131-6 #### [facility] ([id number]) [address], [address] [place] [address] comment (Bld) [Interp]on 09-23-2023 STAFF REVIEW NOTE Normal [facility] Comment on above: Result Comment: [facility] [address] [place] [address] Clinical Pathology Report Patient Name:JOSE DAVID:1945 (Age: 78)Gender:FTaken:09/23/2023eported:09/26/2023hysician(s):Olga Pan M.D. ([phone])Copy To: Rec. #:[id number]: #[id number] Final Pathologic Diagnosis Peripheral blood smear: Neutrophilic [...] Out hn09/26/2023Og Martinez M.D. Interpretation performed at [facility], [address] [place] [address], License number: [id number]. Clinical History R29.9. BLOOD SMEAR EVALUATION CBC (09/23/2023 0818): WBC = 12.1 X10E9/L; HGB = 9.1 g/dL; HCT = 27.8%; MCV = 85 fL; PLT = 924 X10E9/L OTHER LAB DATA: Noncontributory. BLOOD SMEAR: Leukocytes: Neutrophilic leukocytosis with cytotoxic changes and lymphocytopenia. Erythrocytes: Moderate normocytic normochromic anemia. Platelets: Thrombocytosis. Specimen(s) Received Blood Smear Review Fee Codes(s): 1; 89625 Performed By: #### C BCA, CMP, 1988-5, FEPR, 2276-4, 2284-8, 64679-9, 2132-9, 35163-8, 10463-3, 5130-0, 43454-0, 20362-1, 95347-9, 3357-1, 8092-9, 11297-5, 19216-6, 67402-0, 09293-7, 21098-0 #### [facility] ([id number]) [address], [address] [place] [address] PERSONALIZED LIVING MANAGER AB IgGon 09-23-2023 Ribonucleoprotein extractable nuclear IgG Qn (S) [facility] Comment on above: CLIA ID [id number] Rheumatoid factoron 09-23-19 Rheumatoid factor Nephelometry Qn (S) 21 High [facility] Rheumatoid factor Nephelomet ry Qn (S)on 09-23-2023 Interpretation and review of laboratory results Abnormal [facility] RHEUMATOID FACTOR 21 IU/mL High <20 [facility] Comment on above: Performed By: #### C SHARATH, CMP, 1987-12, FEPR, 2276-4, 2284-8, 05023-8, 2-9, 24521-6, 35555-3, 5130-0, 91221-8, 66499-5, 13182-2, 3357-1, 8092-9, 40970-0, 72529-6, 46891-4, 64710-1, 02107-0 #### [facility] ([id number]) [address], [address] [place] [address] Ribonucleoprotein extractabl e nuclear IgG Qn (S)on 09-23-2023 PERSONALIZED LIVING MANAGER ANTIBODY IGG <0.2 Normal <1.0 [facility] Comment on above: Performed By: #### C BCA, CMP, 1987-12, FEPR, 2276-4, 2284-8, 50933-4, 2132-9, 65241-6, 00645-6, 5130-0, 29854-0, 04774-8, 87412-3, 3357-1, 8092-9, 15315-9, 10862-1, 24208-1, 41460-8, 98887-0 #### [facility] ([id number]) [address], [address] [place] [address] Ribosomal P IgG Qn (S)on RIBOSOME P ANTIBODY <0.2 Normal <1.0 [facility] Comment on above: Performed By: #### C BCA, CMP, 1987-12, FEPR, 2275-4, 2283-8, 88669-3, 2131-9, 38972-4, 14635-9, 5130-0, 10496-6, 91428-5, 10427-0, 3357-1, 8092-9, 99265-9, 65278-0, 73664-2, 35917-0, 21588-8 #### [facility] ([id number]) [address] [place] [address], [address] [place] [address] SCL-70 extractable nuclear A b Ql (S)on 09-23-2023 SCL 70 ANTIBODY <0.2 Normal <1.0 [facility] Comment on above: Performed By: #### C BCA, CMP, 1987-12, FEPR, 2275-4, 2283-8, 08532-6, 2131-9, 80312-1, 86434-7, 5130-0, 15988-5, 04335-0, 62531-7, 3357-1, 8092-9, 16414-6, 45985-2, 64603-7, 56840-0, 23513-7 #### [facility] ([id number]) [address], [address] [place] [address] SERUM PROTEIN ELECTROPHORESI Son 09-23-2023 Albumin [Mass/Vol] 2.5 g/dL Low 3.4-5.3 [facility] Comment on above: Performed By: #### C BCA, CMP, 1987-12, FEPR, 2275-4, 2283-8, 69324-0, 9, 89935-3, 23975-7, 5130-0, 51818-9, 42686-8, 14307-8, 3357-1, 8092-9, 67729-7, 12063-9, 48841-1, 38442-3, 30987-3 #### [facility] ([id number]) [address], [address] [place] [address] ALPHA 1 GLOBULIN 0.6 g/dL High 0.1-0.4 [facility] Comment on above: Performed By: #### C BCA, CMP, 1987-12, FEPR, 2276-4, 2284-8, 72864-8, 213-9, 44376-0, 45661-9, 5130-0, 69511-6, 65618-4, 07320-4, 3357-1, 8092-9, 55900-3, 98250-1, 83694-0, 80852-2, 26788-3 #### [facility] ([id number]) [address], [address] [place] [address] ALPHA 2 GLOBULIN 1.2 g/dL High 0.4-1.1 [facility] Comment on above: Performed By: #### C BCA, CMP, 1987-12, FEPR, 6-4, 2284-8, 85543-7, 2132-9, 34622-8, 05199-9, 5130-0, 16625-4, 73734-3, 41936-7, 3357-1, 8092-9, 47782-5, 76698-6, 66192-7, 51484-6, 92237-8 #### [facility] ([id number]) [address], [address] [place] [address] BETA GLOBULIN 0.8 g/dL Normal 0.5-1.2 [facility] Comment on above: Performed By: #### C BCA, CMP, 1987-12, FEPR, 2275-4, 2284-8, 19659-5, 2132-9, 10133-9, 76279-1, 5130-0, 60854-7, 38846-2, 36807-3, 3357-1, 8092-9, 47197-0, 93157-6, 18213-6, 33151-2, 24241-6 #### [facility] ([id number]) [address], [address] [place] [address] GAMMA GLOBULIN 1.0 g/dL Normal 0.5-1.6 [facility] Comment on above: Performed By: #### C BCA, CMP, 1987-12, FEPR, 2276-4, 2284-8, 40257-5, 213-9, 85595-6, 47593-1, 5130-0, 20492-5, 29322-0, 18626-7, 3357-1, 8092-9, 00754-9, 21212-5, 30735-7, 33894-7, 87145-9 #### [facility] ([id number]) [address], [address] [place] [address] PROT. ELECTROPHORESIS INTERP SEE SEPARATE REPORT Normal [facility] Comment on above: Performed By: #### C BCA, CMP, 1987-12, FEPR, 2276-4, 2284-8, 26449-7, 2132-9, 63179-5, 52292-5, 5130-0, 88661-4, 07594-4, 43000-8, 3357-1, 8092-9, 66609-2, 39242-3, 65667-5, 20302-9, 41131-0 #### [facility] ([id number]) [address], [address] [place] [address] Protein [Mass/Vol] 6.1 g/dL Normal 6.0-8.0 [facility] Comment on above: Performed By: #### C BCA, CMP, 1987-12, FEPR, 227-4, 2284-8, 23845-3, 2132-9, 44463-1, 83319-5, 5130-0, 33977-6, 05315-6, 92806-7, 3357-1, 8092-9, 71867-0, 23932-5, 95238-2, 37301-2, 94791-3 #### [facility] ([id number]) [address], [address] [place] [address] SSA antibodyon 09-23-2023 Sjogrens syndrome-A extractable nuclear Ab Qn (S) [facility] Comment on above: CLIA ID [id number] SSB Antibodyon 09-23-2023 Sjogrens syndrome-B extractable nuclear IgG Qn (S) [facility] Comment on above: CLIA ID [id number] Scleroderma antibodyon 09-23 SCL-70 extractable nuclear Ab Ql (S) [facility] Comment on above: CLIA ID [id number] Sjogrens syndrome-A extracta ble nuclear Ab Qn (S)on 09-23-2023 SSA ANTIBODY <0.2 Normal <1.0 [facility] Comment on above: Performed By: #### C KELVIN EARLY, 1987-12, FEPR, 6-4, 4-8, 72855-7, 2131-9, 64172-0, 87118-5, 5130-0, 33882-8, 24838-2, 33672-3, 3357-1, 8092-9, 04942-5, 69664-1, 78737-0, 59561-0, 08873-4 #### [facility] ([id number]) [address], [address] [place] [address] Sjogrens syndrome-B extracta ble nuclear IgG Qn (S)on 09-23-2023 SSB ANTIBODY <0.2 Normal <1.0 [facility] Comment on above: Performed By: #### C KELVIN EARLY, 1987-12, FEPR, 2275-4, 2283-8, 46174-7, 2132-9, 88945-6, 97261-7, 5130-0, 30782-4, 75620-9, 94818-0, 3357-1, 8092-9, 76780-9, 06563-6, 50206-7, 95371-6, 25061-1 #### [facility] ([id number]) [address], [address] [place] [address] Mejia extractable nuclear Ab +Ribonucleoprotein extractable nuclear IgG Qn (S)on 09-23-2023 MEJIA/PERSONALIZED LIVING MANAGER AB IGG <0.2 Normal <1.0 [facility] Comment on above: Performed By: #### C SHARATH, CMP, 1987-12, FEPR, 2276-4, 2284-8, 50469-1, 2131-9, 37288-3, 59788-6, 5130-0, 43602-4, 30478-7, 43869-5, 3357-1, 8092-9, 87281-1, 34452-4, 93818-9, 07926-8, 94556-2 #### [facility] ([id number]) [address] [place] [address], [address] [place] [address] Mejia extractable nuclear Ig G Qn (S)on 09-23-2023 ANTI-MEJIA AB IGG <0.2 Normal <1.0 [facility] Comment on above: Performed By: #### C BCA, CMP, 1987-12, FEPR, 2276-4, 2284-8, 26948-6, 2131-9, 89612-2, 41235-1, 5130-0, 86812-9, 52430-6, 44024-4, 3357-1, 8092-9, 90124-4, 71802-0, 84649-3, 75925-0, 67996-2 #### [facility] ([id number]) [address] [place] [address], [address] [place] [address] Mejia/PERSONALIZED LIVING MANAGER AB IgGon Mejia extractable nuclear Ab+Ribonucleoprotein extractable nuclear IgG Qn (S) [facility]INF [facility] Surgical Pathologyon 024 Surgical Pathology Normal [facility] Comment on above: Result Comment: [facility] [address] [place] [address] Flow Cytometry Patient Name:JOSE DAVIDAccession #:[id number]. Rec. #:[id number]:[facility] HospitalTaken:09/23/2023OB:1945 (Age: 78)Location:[facility] GEN 8 ACUTE G242Sgmrbqdk:09/23/2023Gender: FBill. Type:ToledoReported:Priority:RBilling #:[id number] Class:TTH Special Procedure OnlyPhysician(s): Charlene Chan MD [...] patterns of antigen expression are not seen. [place] on the lymphoid population demonstrates a mixed population of phenotypically unremarkable T-cells, natural killer cells, and polyclonal B-cells, without a detectable monoclonal population. Immunophenotyping antibodies tested: CD2, CD3, CD4, CD5, CD7, CD8, CD10, CD13, CD16, CD19, CD20, CD23, CD33, CD34, CD38, CD43, CD45, CD56, CD117, CD123, CD138, Hoffman, and Lambda. Immunophenotyping Comment: Immunophenotyping has been used in this diagnostic evaluation. This test was developed and its performance characteristics determined by the [facility] Clinical Laboratories Department. It has not [...] (Vitamin B12) [Mass/Vol] 248 pg/mL Normal 180-914 [facility] Comment on above: Performed By: #### C SHARATH, CMP, 1987-12, FEPR, 2276-4, 2284-8, 05707-9, 2132-9, 14787-6, 91889-3, 5130-0, 54449-0, 00932-1, 32972-1, 3357-1, 8092-9, 61451-7, 73847-9, 31995-6, 98540-8, 38927-1 #### [facility] ([id number]) [address], [address] [place] [address] Vitamin B12on 09-23-2023 Cobalamin (Vitamin B12) [Mass/Vol] 248 pg/mL 180 - 914 pg/mL [facility] dRVVT/dRVVT.excess phospholi pid Coag (PPP) [Ratio]on 09-23-2023 DILUTE KORI'S VIPER VENOM Negative Normal [facility] Comment on above: Performed By: #### C SHARATH, CMP, 1987-12, FEPR, 2275-4, 2284-8, 37391-8, 2132-9, 12501-9, 69070-5, 5130-0, 44250-2, 03520-0, 64515-0, 3357-1, 8092-9, 38592-5, 96806-1, 17128-9, 15523-1, 61304-4 #### [facility] ([id number]) [address], [address] [place] [address] CT CSPINE WO CONon 3 CT CSPINE [...] by: SHANTELL GARCIA Date: 2022-12-25 08:22 Normal [facility] XR KNEE RT 4V or >on 022 [...] lateral and patellofemoral compartments where there is fqlo-lo-vtjn contact. 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 Electronically authenticated by: KARAN JENKINS Date: 2022-04-25 19:06 Normal [facility] Patient Educationon 09-10-19 22 Patient Education Nutrition [...] height. This can be done either in [place] ([place] or metric measurements. Note that charts are available to help you find your BMI quickly and easily without having to do these calculations yourself. To calculate your BMI in [place] ([place] measurements, your health care provider will: [...] problems. ? BMI can be measured using Libyan measurements or metric measurements. ? To interpret [...] 04/22/2005 Document Revised: 07/24/2018 Document Reviewed: 06/24/2018 [employer] Patient Education ? 2019 [facility]. Obstetrics and Gynecology Overactive Bladder, Adult Overactive [...] (more content not included)... Normal [facility] 09-10-2021 [facility] [id number] 102 [id number] D:127 Normal [facility] [id number] 107 [id number] D:127 Normal [facility] Urology Office/Clinic Noteon 09-10-2021 Urology Office/Clinic Note [...] genitourinary system) Interesting patient still working at [employer] which came here the store when I [...] URL Within 1 year, only if needed [address] [place], [place] [id number] Additional Instructions: Patient Education BMI for Adults Overactive Bladder, Adult IAurora, personally scribed for Dr. Napoles on 09/10/2021 08:46:05. . Documentation recorded by the alanaibAurora naik accurately reflects the services(s) I performed and [...] Protein Urine Dipstick: Negative (09/10/21 08:26:00) Specific [place] Urine Dipstick: 1.025 (09/10/21 08:26:00) Urine Appearance Urine Dipstick: Clear (09/10/21 08:26:00) Urine Color Urine Dipstick: Yellow (09/10/21 08:26:00) Urobilinogen Urine Dipstick: Normal 0.2-1 EU/dl (09/10/21 08:26:00) pH Urine Dipstick: 5 (09/10/21 08:26:00) Normal [facility] Comment on above: Result Comment: Elec tronically Signed By: Gilbert NAPOLES MD\.br\Date and Time Signed: 09/10/21 08:49 EST\.br\Electronically Co-Signed By: Aurora Hdz MA\.br\Date and Time Co-Signed: 09/10/21 08:46 EST Physician Orderon 09-07-2021 Physician Order [id number]#1.00C D:127 Normal [facility] Vital Signs Date Time Vital Sign Value Performing Clinician Wen de 12-29-2023 09:05040 Body height 152.4 cm [facility] 12-29-2023 09:05040 Body mass index (BMI) [Ratio] 25.4 kg/m2 [facility] 12-29-2023 09:05-0400 Body temperature 97.5 [degF] [facility] 12-29-2023 09:050400 Body weight 58.96 kg [facility] 12-29-2023 09:05-0400 Heart rate 86 /min [facility] 12-29-2023 09:050400 Respiratory rate 16 /min [facility] 12-29-2023 09:05-0400 SaO2% (BldA) [Mass fraction] 96 % [facility] 11-06-2023 15:01-0400 Body height 157.5 cm Allie Hoskins MD Work Phone: [facility] 11-06-2023 15:01-0400 Body mass index (BMI) [Ratio] 22.09 kg/m2 Allie Hoskins MD Work Phone: [facility] 11-06-2023 15:01-0400 Body temperature 98.6 [degF] Allie Hoskins MD Work Phone: [facility] 11-06-2023 15:01-0400 Body weight 54.8 kg Allie Hoskins MD Work Phone: [facility] 11-06-2023 15:01-0400 Diastolic blood pressure 65 mm[Hg] Allie Hoskins MD Work Phone: [facility] 11-06-2023 15:01-0400 Heart rate 109 /min Allie Hoskins MD Work Phone: [facility] 11-06-2023 15:01-0400 Respiratory rate 24 /min Allie Hoskins MD Work Phone: [facility] 11-06-2023 15:01-0400 SaO2% (BldA) [Mass fraction] 97 % Allie Hoskins MD Work Phone: [facility] 11-06-2023 15:01-0400 Systolic blood pressure 151 mm[Hg] Allie Hoskins MD Work Phone: [facility] 10-16-2023 11:04-0500 Body height 152.4 cm [facility] 10-16-2023 11:04-0500 Body mass index (BMI) [Ratio] 23.6 kg/m2 [facility] 10-16-2023 11:04-0500 Body weight 54.88 kg [facility] 10-16-2023 11:04-0500 Diastolic blood pressure 72 mm[Hg] [facility] 10-16-2023 11:04-0500 Heart rate 88 /min [facility] 10-16-2023 11:04-0500 SaO2% (BldA) [Mass fraction] 98 % [facility] 10-16-2023 11:04-0500 Systolic blood pressure 134 mm[Hg] [facility] 10-16-2023 09:50-0500 Diastolic blood pressure 74 mm[Hg] Mouna Bautista MD Work Phone: [facility] 10-16-2023 09:50-0500 Heart rate 72 /min Mouna Bautista MD Work Phone: [facility] 10-16-2023 09:50-0500 Systolic blood pressure 140 mm[Hg] Mouna Bautista MD Work Phone: [facility] 10-16-2023 09:49-0500 Body height 157.5 cm Mouna Bautista MD Work Phone: [facility] 10-16-2023 09:49-0500 Body mass index (BMI) [Ratio] 21.51 kg/m2 Mouna Bautista MD Work Phone: [facility] 10-16-2023 09:49-0500 Body weight 53.34 kg Mouna Bautista MD Work Phone: [facility] 10-16-2023 09:49-0500 Respiratory rate 18 /min Mouna Bautista MD Work Phone: [facility] 09-26-2023 15:31-0500 Body temperature 98.2 [degF] Bart Milian MD Work Phone: [facility] 09-26-2023 15:31-0500 Heart rate 103 /min Bart Milian MD Work Phone: [facility] 09-26-2023 15:31-0500 Respiratory rate 16 /min Bart Milian MD Work Phone: [facility] 09-26-2023 15:31-0500 SaO2% (BldA) [Mass fraction] 96 % Bart Milian MD Work Phone: [facility] 09-26-2023 07:20-0500 Diastolic blood pressure 84 mm[Hg] Bart Milian MD Work Phone: [facility] [employer] 09-26-2023 07:20-0500 Systolic blood pressure 152 mm[Hg] Bart Milian MD Work Phone: [facility] 09-24-2023 13:40-0500 Body height 157.5 cm Bart Milian MD Work Phone: [facility] 09-24-2023 13:40-0500 Body mass index (BMI) [Ratio] 21.21 kg/m2 Bart Milian MD Work Phone: [facility] 09-24-2023 13:40-0500 Body weight 52.6 kg Bart Milian MD Work Phone: [facility] Encounters Encounter Date Encounter Type Care Provider Facility Start: 01-02-2024 End: 01-02-2024 ambulatory [facility] Start: 12-29-2023 End: 12-29-2023 ambulatory [facility] Work Phone: Start: 12-29-2023 End: 12-29-2023 Patient encounter procedure [facility] Work Phone: Start: 12-29-2023 Non-patient / Non-visit [facility] Work Phone: Start: 11-26-2023 End: 11-26-2023 ambulatory [facility] Start: 11-06-2023 End: 11-06-2023 Office outpatient visit 40 minutes Allie Hoskins MD Work Phone: Adelaida Keane [facility] Comment on above: Normocytic anemia (P rimary Dx); Thrombocytosis Start: 11-06-2023 Orders Only Malinda Keane [facility] Comment on above: Giant cell arteritis (CMS-HCC) (Primary Dx); Stroke-like symptoms; Vision blurred; Anemia, unspecified type Start: 10-30-2023 Non-patient / Non-visit [facility] Work Phone: Start: 10-21-2023 End: 10-21-2023 ambulatory JT Raisa JASSO [facility] Start: 10-17-2023 Telephone encounter [facility] Comment on above: Med Refill Start: 10-16-2023 End: 10-16-2023 ambulatory MOUNA BAUTISTA [facility] Work Phone: Start: 10-16-2023 End: 10-16-2023 Patient encounter procedure [facility] Work Phone: Start: 10-16-2023 End: 10-16-2023 Office outpatient visit 15 minutes [facility] Comment on above: Giant cell arteritis (CMS-HCC) (Primary Dx) Start: 09-29-2023 Telephone encounter Rosa G[facility]an [facility] Comment on above: Hospital Follow-up Start: 09-27-2023 End: 09-27-2023 Evaluation and management of inpatient RICKIE Damon TERRY [facility] Start: 09-24-2023 End: 09-27-2023 Evaluation and management of inpatient RYANLONNIE MARIBEL [facility] Start: 09-24-2023 ambulatory JOHN Cristóbal [facility] Start: 09-24-2023 End: 09-27-2023 Evaluation and management of inpatient CARLITOS CARABALLO [facility] Start: 09-23-2023 End: 09-26-2023 Evaluation and management of inpatient [facility] Start: 09-23-2023 End: 09-26-2023 Evaluation and management of inpatient Tono Pan MD Work Phone: [facility] - GEN 8 Acute Comment on above: B12 deficiency (Prim lisa Dx); Thrombocytosis; Vision blurred; Temporal arteritis ([facility]) Start: 03-24-2023 End: 03-25-2023 ambulatory Naomy Lujan MD Facility:[facility] Start: 03-10-2023 End: 03-11-2023 ambulatory Naomy Lujan MD Facility:[facility] Start: 03-03-2023 End: 03-04-2023 ambulatory Naomy Lujan MD Facility:[facility] Start: 02-17-2023 End: 02-18-2023 ambulatory Naomy Lujan MD Facility:[facility] Start: 02-03-2023 End: 02-04-2023 ambulatory Naomy Lujan MD Facility:[facility] Start: 01-24-2023 End: 01-25-2023 ambulatory Naomy Lujan MD Facility:[facility] Start: 12-25-2022 End: 12-25-[address] PATO LYNN Facility: Start: 04-25-2022 End: 04-25-[address] CRISTOPHER BUCHANAN . Facility: Procedures Date Procedure Procedure Detail Performing Clinician Start: 11-26-2023 Follow-up visit Follow-up JT JASSO Start: 11-06-2023 Follow-up visit Follow-up ALLIE Henry AIDEE Start: 10-16-2023 Follow-up visit Follow-up MOUNA BAUTISTA Start: 09-26-2023 Basic metabolic panel calcium total Goran Thomas MD Work Phone: Start: 09-25-2023 Level i surg pathology gross examination only Kristel Reid MD Work Phone: Start: 09-25-2023 End: 09-25-2023 Ligation/biopsy temporal artery Kristel Reid MD Work Phone: Start: 09-24-2023 Echo tthrc r-t 2d w/wom-mode compl spec&colr d Trevin López MD Work Phone: Start: 09-24-2023 Basic metabolic panel calcium total Goran Thomas MD Work Phone: Start: 09-24-2023 End: 09-24-2023 Mri brain brain stem w/o w/contrast material Carlitos Caraballo MD Work Phone: Start: 09-23-2023 Bcr/abl1 major breakpnt qualitative/quantitative Lauderdale Hinders [employer] 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 Work Phone: Start: 09-23-2023 Antihuman globulin direct each antiserum Lauderdale Hinders [employer] 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 Work Phone: Start: 09-23-2023 ANCA Trevin López MD Work Phone: Start: 09-23-2023 Assay of haptoglobin quantitative Tono Pan MD Work Phone: Start: 09-23-2023 Beta 2 glycoprotein i antibody each Tono Pan MD Work Phone: Start: 09-23-2023 Blood count complete auto&auto difrntl wbc Bart Milian MD Work Phone: Start: 09-23-2023 CLINICAL PATHOLOGY BLOOD SMEAR REVIEW Bart Milian MD Work Phone: Start: 09-23-2023 Jak2 gene analysis [id number] variant Bart Milian MD Work Phone: Start: 09-23-2023 Antinuclear antibodies silvia Nandini Walters MD Work Phone: Start: 09-23-2023 Comprehensive metabolic panel Nandini Walters MD Work Phone: Start: 09-23-2023 Adult depression screening assessment Rosa Ovalles Start: 09-23-2023 PULSE OXIMETRY, SPOT Nandini Walters MD Work Phone: History of cataract extraction History of cataract extraction with lens replacement History of cataract extraction History of cataract extraction with lens replacement Plan of Treatment Date Care Activity Detail Author Start: 11-05-2024 Adult BMI Screening Adult BMI Screening [facility] Start: 10-16-2024 Adult BMI Screening Adult BMI Screening [facility] Start: 10-16-2024 Tobacco Screening Tobacco Screening [facility] Start: 09-24-2024 Adult BMI Screening Adult BMI Screening [facility] Start: 09-24-2024 Tobacco Screening Tobacco Screening [facility] Start: 09-23-2024 Depression Screening Depression Screening [facility] Start: 03-05-2024 End: 03-05-2024 Patient encounter procedure 03/05/2024 2:15 PM EDT Office Visit Adelaida Hobbs [facility] [address] [place] [address] Allie Hoskins MD [address] [facility] [address] [place] [address] [id number] Adelaida Keane [facility] Start: 01-15-2024 End: 01-15-2024 Patient encounter procedure 01/15/2024 11:00 AM EDT Office Visit [facility] [address] [place] [address] Mouna Bautista MD [address], [address] [address] [facility] Start: 01-02-2024 End: 01-02-2024 Patient encounter procedure 01/02/2024 1:15 PM EDT Office Visit [facility] [address] [place] [address] Darci Santana MD [address] [place] [id number] [facility] Start: 12-05-2023 End: 12-05-2023 Patient encounter procedure 12/05/2023 10:15 AM EDT Office Visit [facility] [address] [place] [address] Darci Santana MD [address] [place] [id number] [facility] Start: 11-06-2023 End: 11-06-2023 Patient encounter procedure 11/06/2023 3:30 PM EDT Office Visit Adelaida Keane [facility] [address] [place] [address] Allie Hoskins MD [address] [facility] [address] [place] [address] Adelaida Hobbs Lakhwinder [facility] Start: 10-16-2023 End: 10-16-2023 Patient encounter procedure 10/16/2023 9:10 AM EST Office Visit [facility] [address] [place] [address] Mouna Bautista MD [address], [address] [address] [facility] Start: 04-25-2023 Influenza vaccination Influenza Vaccine [facility] Start: 2011 Fall Risk Screening Fall Risk Screening [facility] Start: 1996 Administration of varicella zoster vaccine Zoster (Shingles) Vaccine (1 of 2) [facility] Start: 1965 DTaP,Tdap and Td Vaccines (1 - Tdap) DTaP,Tdap and Td Vaccines (1 - Tdap) [facility] Start: 1946 Medicare Annual Wellness Visit Medicare Annual Wellness Visit [facility] End: 09-26-2024 Basic metabolic 2000 panel - Serum or Plasma Basic Metabolic Panel Lab Routine Vision blurred 1 Occurrences starting 09/26/2023 until 09/26/2024 [facility] Comment on above: 1 Occurrences starting 09/26/2023 until 09/26/2024 End: 09-26-2024 CBC W Auto Differential panel - Blood CBC auto differential Lab Routine Thrombocytosis 1 Occurrences starting 09/26/2023 until 09/26/2024 [facility] Comment on above: 1 Occurrences starting 09/26/2023 until 09/26/2024 End: 11-05-2024 CBC W Auto Differential panel - Blood CBC auto differential Lab Routine Giant cell arteritis ([facility]) Stroke-like symptoms Vision blurred Anemia, unspecified type every 2 months for 2 Occurrences starting 11/06/2023 until 11/05/2024 hi5 Work Phone: Comment on above: every 2 months for 2 Occurrences startin g 11/06/2023 until 11/05/2024 End: 11-05-2024 Ferritin [Mass/volume] in Serum or Plasma Ferritin Lab Routine Giant cell arteritis ([facility]) Stroke-like symptoms Vision blurred Anemia, unspecified type every 2 months for 2 Occurrences starting 11/06/2023 until 11/05/2024 [employer] Comment on above: every 2 months for 2 Occurrences startin g 11/06/2023 until 11/05/2024 End: 09-23-2023 Flow cytometry blood only hi5 Work Phone: Comment on above: Once for 1 Occurrences starting 09/23/19 until 09/23/2023 Immunoelectrophoresi s for Therapy Monitoring Immunoelectrophoresis for Therapy Monitoring Lab Routine 09/23/2023 12:56 PM EST hi5 Work Phone: End: 11-05-2024 Iron and TIBC Iron and TIBC Lab Routine Giant cell arteritis ([facility]) Stroke-like symptoms Vision blurred Anemia, unspecified type every 2 months for 2 Occurrences starting 11/06/2023 until 11/05/2024 [employer] Comment on above: every 2 months for 2 Occurrences startin g 11/06/2023 until 11/05/2024 Methylmalonate [Moles/volume] in Serum or Plasma Methylmalonic acid screen Lab Routine 09/23/2023 12:57 PM [facility] End: 09-23-2023 Methylmalonic acid screen Methylmalonic acid screen Lab Routine Once for 1 Occurrences starting 09/23/2023 until 09/23/2023 hi5 Work Phone: Comment on above: Once for 1 Occurrences starting 09/23/19 until 09/23/2023 Protein electrophore sis, serum Protein electrophoresis, serum Lab Routine 09/23/2023 12:56 PM [facility] Payers Date Payer Category Payer Medicare [id number] 2022 Medicare 2016 Private Health Insurance [id number] 1959 Medicare [id number] 1945 Unknown [id number] 2.16.84 0.1.417714.3.579.2.593 1945 Unknown [id number] 2.16.84 0.1.503404.3.579.2.593 1946 Unknown [id number] 2.16. 840.1.068570.3.579.2.196 1946 Unknown [id number] 2.16. 840.1.036735.3.579.2.196 1946 Unknown [id number] 2.16. 840.1.548493.3.579.2.196 1946 Unknown [id number] 2.16. 840.1.049703.3.579.2.196 1946 Unknown [id number] 2.16. 840.1.332284.3.579.2.196 1946 Unknown [id number] 2.16. 840.1.829748.3.579.2.196 1946 Unknown [id number] 2.16.8 40.1.936251.3.579.2.1286 1946 Unknown [id number] 2.16.8 40.1.164024.3.579.2.1286 1946 Unknown [id number] 2.16.8 40.1.540007.3.579.2.1286 1946 Unknown [id number] 2.16.8 40.1.457575.3.579.2.1286 1946 Unknown [id number] 2.16.8 40.1.630273.3.579.2.1286 1946 Unknown [id number] 2.16.8 40.1.785390.3.579.2.1286 1946 Unknown [id number] 2.16.8 40.1.686969.3.579.2.1286 1946 Unknown [id number] 2.16.8 40.1.936564.3.579.2.1286 1946 Unknown [id number] 2.16.8 40.1.992279.3.579.2.1286 1946 Unknown [id number] 2.16.8 40.1.030945.3.579.2.1286 1946 Unknown [id number] 2.16.8 40.1.235916.3.579.2.1286 1946 Unknown [id number] 2.16.8 40.1.174596.3.579.2.128 1946 Unknown [id number] 2.16.8 40.1.992326.3.579.2.1286 1946 Unknown [id number] 2.16.8 40.1.966486.3.579.2.1286 Self-pay Self Pay [id number] Social History Date Type Detail Facility Start: 09-23-2023 Tobacco smoking stat [facility] Never smoked tobacco [facility] Start: 09-23-2023 Tobacco use and exposure Smoke less tobacco non-user [facility] Start: 09-25-2023 End: 10-16-2023 Alcohol intake Lifetime non-drinker (finding) [facility] Start: 10-05-2020 End: 09-23-2023 History of Social function [facility] Start: 10-05-2020 End: 09-23-2023 Alcohol Use Disorder Identification Test - Consumption [AUDIT-C] [facility] How often to you hav e a drink containing alcohol? Never [facility] How many standard dr inks containing alcohol do you have on a typical day? Patient does not drink [facility] Start: 1945 Sex Assigned At Not on file P COTA Start: 10-16-2023 End: 10-16-2023 Tobacco smoking status NHIS Ex-smoker (finding) [facility] Start: 1945 Sex Assigned At Female F [facility] Goals Date Patient Goal Desired Activity /State Personal health goal Comment on above: Formatting of this n ote might be different from the original. Evaluation of progress towards goal: Home with dtr, self care Clinical Notes 09-23-2023 to 11-26-2023 Malinda Arrington RN - 11/06/2023 3:46 PM EDTChmulu Hoskins MD - 11/06/2023 3:30 PM EDTPatient InstructionsTelephone Encounter - Beronica Janebaldev - 10/17/2023 11:39 AM ESTDischarge InstructionsAttachments Note Date & Type Note Facility 11-26-2023 Note Subjective Patient ID: Jose David is a 78 y.o. female who presents for Follow-up (GCA). HPI She was admitted to [facility] end of August 2023 due to [...] every 3 months to monitor for toxicity. [facility] 11-06-2023 History of Present illness Narrative Patient is here for consult with Dr. Hoskins. Orders received for CBC, iron studies every 2 months (print out orders). F/u in 4 months. Calendar given to family member and labs orders to be drawn at [facility]. documented in this encounter [facility] 11-06-2023 History of Present illness Narrative Images from the original note were not included. [facility] 11/06/23 Jose David is a 78 y.o. year old female seen today in the oncology clinic. Chief Complaint Patient presents with Follow-up History of Present Illness: Mrs. David is a 78 y.o. female with no significant past medical history presented to [facility] on 09/19/2023 due to blurry vision in left eye, she was told her optic disc was swollen and the patient was given a referral to telecommunications cable jointer. Over the weekend patients vision in left eye continued to worsen and eventually lost all vision in left eye. Patient was seen by telecommunications cable jointer 09/22/2023 and time she would decreased vision also in her right eye. It was recommended that she go straight to the emergency department, for concern for giant cell arteritis. Initially she went to [facility] where they gave her Solu-Medrol 250 mg IV 1 dose and then transferred her to [facility]. When she arrived at [facility] she had complete vision loss in [...] 09/25/2023 Performed by Kristel Reid MD at [facility] TONSILLECTOM[facility]AL [facility] No family history [...] day, repeat CBC and iron study at [facility] in 2 months. Follow-up in 4 months. If patient can not tolerate oral iron supplement, consider IV iron treatment. Thank you. Allie Hoskins MD Please note that portions of this note were generated using voice recognition M*Modal dictation software. Although every effort was made to ensure the accuracy of this automated clinic md associate, some errors in clinic md associate may have occurred. CC: Patient Care Team: MERCEDES Portillo as PCP - General (Nurse Practitioner) Allie Hoskins MD as Consulting Physician (Hematology) PCP:Giovanna Graf Referring MD: John Patel DO documented in this encounter [employer] 11-06-2023 Instructions Allie Hoskins MD - 11/06/2023 3:30 PM EDT CBC, iron studies every 2 months (print out orders). F/u in 4 months. documented [facility] this encounter [facility] 10-21-2023 Note Specialty Pharmacy N ote: [facility] Supervising Physician & Clinic:?? Dr. Jt Jasso, [facility] Rheumatology Jose David is a 78 [...] be outside lab. ? Malinda's phone number: [phone] Naresh Basil Barrett, [facility] Outpatient Clinical Pharmacist [place] [facility] [id number] 10/21/23 4:03 PM [facility] 10-21-2023 Note Pt daughter called [...] again to check status next Friday. Mert Damon, [facility] 12/22/23 at 12:14 PM [facility] 10-21-2023 Note The patient has been approved to receive free drug from the [employer] PAP until: -Therapy is discontinued -Health insurance/financial status change I spoke with the patient's daughter - she stated the medication is supposed to be delivered Friday. We will follow up with the patient on 01/05/2024 to ensure the medication is received. Alexa Bass, [facility] 12/30/23 8:54 AM [facility] 10-21-2023 Note Called and spoke wit h daughter. She plans to complete labs on 10/29/23. Will check for TB results again in a couple of days. Deb Blount, [employer] [facility] [place] [id number] 10/28/23 10:03 AM [facility] 10-21-2023 Note Daughter called this morning asking for status update. We received a fax 12/02 stating they had received the application and it would take 3 business days for processing. Will follow-up tomorrow with program to check the status. Brynn Patricia, Basil, BCACP 12/08/23 9:44 AM [facility] [phone] [facility] 10-21-2023 Note I spoke to the uma nt's daughter today and she told me she [...] sent it and the denial into the [employer] PAP. I will leave the Extra Help denial letter in the folder for now and we can send everything in at once. Irena Whaley PharmD, BCACP, CSP 12/16/23 3:59 PM [facility] [phone] [facility] 10-21-2023 Note The daughter called back, she did submit the Extra Help application online yesterday, I don't know how long that it will take to take effect. Future filled Rx for next week to see. Pt is due for next dose in 2 weeks. I am writing appeal now to submit to PAP. Brynn Patricia PharmD, SHARATHCP 12/24/23 10:47 AM [facility] [phone] [facility] 10-21-2023 Note Faxed appeal to [employer] P[employer] with letter I wrote and bank statements we received. Brynn Patricia PharmD, BCACP 12/24/23 12:25 PM [facility] [phone] [facility] 10-21-2023 Note Spoke to PAP, they r eceived the appeal but need to review it. They will let us know. LM for pt's daughter to let her know. Brynn Patricia PharmD, BCACP 12/26/23 1:17 PM [facility] [phone] [facility] 10-21-2023 Note Called and spoke wit h the patient's daughter and she plans to complete labs on Friday. Negro Curry, [employer] 10/24/23 1:21 PM [facility] 10-21-2023 Note Prior Authorization for [facility] has been approved 11/04/2023-05/06/2024. Case ID/Authorization Number: [id number] Mony Lin CPhT [place] [facility] 11/04/23 2:12 PM [facility] 10-21-2023 Note The patient's daught er called to check on the status of the PAP application. I informed her that as of 12/08/23 they were still reviewing it. I let her know that once we have an update, we will let her know. Alexa Bass, [facility] 12/10/23 10:01 AM [facility] 10-21-2023 Note PAP denied due to in come being too high because they considered her daughters income. Based on pts income of $1590/month should qualify for extra help. Tried to call program and they are all in a meeting, will try again tomorrow. Brynn Patricia PharmD, SHARATHCP 12/11/23 3:58 PM [facility] [phone] [facility] 10-21-2023 Note Spoke to Smeet JADYN Ambrocio and they said they will accept and appeal. Send in as APPEAL to MANAGER AUDIO. Explain the situation and provide income documentation. Daughter is going to look for SS statement, will fax today or Friday if they don't find it. Brynn Patricia PharmD, CARLIN 12/12/23 11:52 AM [facility] [phone] [facility] 10-21-2023 Note Patient's daughter daniella nation and she has not yet faxed the SS statement, but will today. Mony Lin, [facility] 12/15/23 12:17 PM [facility] 10-21-2023 Note We have not received any bank statements for the patient. I called [facility] and they haven't received them either. However, I did verify with them that they will accept the bank statements. I tried reaching the patient's daughter to follow up - no answer, LVMTCB. Alexa Bass [facility] 12/19/23 3:09 PM [facility] 10-21-2023 Note Called patient and L VM to call back. What we received is a screenshot of transactions for bank account. No account saucedo name on it at all. This will not work. Called daughter Malinda's phone number: [phone]; but son Ryan answered. He will have daughter/mother call us back. Advised we need financial documents for patient assistance program application. Naresh Barrett PharmD, [facility] Outpatient Clinical Pharmacist [place] [facility] [id number] 12/23/23 12:40 PM [facility] 10-21-2023 Note Deya called back an d said she was trying to send the bank statement with name ; I let her know that is not how we received it. I stated we probably need something that shows Jose as the account holdr - like a monthly statement. She is going to try to email to Jhoana today. Naresh Barrett, MeganD, [facility] Outpatient Clinical Pharmacist [place] [facility] [phone] 12/23/23 12:56 PM [facility] 10-21-2023 Note We received a [...] the extra help application. Brynn Patricia, Basil, BCACP 12/23/23 2:01 PM [facility] [phone] [facility] 10-21-2023 Note Patient received med ication from [facility]. Advised we will follow up when due for renewal. If they need help to reach out to us. Greg Baltazar, [facility] 01/05/24 2:26 PM [facility] 10-21-2023 Note The patient's daught er informed us that her mother had her blood work done at [facility] yesterday, therefore we should expect to receive the results in a couple of days. [facility] lab's number is [phone] if we do not received the results in care everywhere. Mony Lin, [facility] 10/31/23 9:32 AM [facility] 10-21-2023 Note Patient's caregiver called [...] list. Faxed MD portion for signature. Greg Baltazar, [facility] 12/01/23 11:30 AM [facility] 10-21-2023 Note I spoke to [...] why the copay went up so high. Brynn Patricia, MeganD, BCACP 12/03/23 3:00 PM [place] [facility] [phone] [facility] 10-21-2023 Note Daughter faxed us th e patient portion of the PAP application. I faxed to [facility] PAP. Jhoana Callejas, MeganD Outpatient Clinical Pharmacist [place] [facility] [phone] 12/03/23 4:22 PM [facility] 10-21-2023 Note Pt's POA called back . Advised on PA process, POA requests future contact go to her directly ([phone]). F/U upon determination of PA. Mert Damon, [facility] 11/04/23 at 12:51 PM [facility] 10-21-2023 Note TB test came back ne gative on 10/30/23. Will submit PA to CMM. Awaiting determination. Deb Blount, [employer] [facility] [place] [id number] 11/04/23 11:50 AM [facility] 10-21-2023 Note Subjective Patient ID: Jose David is a 78 y.o. female who presents for Follow-up (GCA). HPI She was admitted to [facility] end of August 2023 due to [...] every 3 months to monitor for toxicity. [facility] 10-17-2023 Miscellaneous Notes Patients daughterMalinda said that the patient will need refills before her appointment on 12/05/2023 Medication Refill request: Medication Name and Strength:vitamin B12 1,000 mcg Current dose & Frequency: Take 1 tablet daily actually taking - not what is listed on the prescription label 30 day or 90 day supply preferred:30 Pharmacy Name: [id number] [place] - If already on preferred pharmacy list [...] or 90 day supply preferred:30 Pharmacy Name: [facility] #[id number] - [place], [place] - If already [...] have to fill. documented in this encounter [employer] 10-17-2023 Telephone encounter Note Patients daughterMalinda said that the patient will [...] pharmacy - [facility] Telephone encounter Note I have attempted to contact this patient by phone with the following results: left detailed message regarding that since patient has not been seen in clinic PCP or the provider that prescribed medication will have to fill. [facility] 10-16-2023 History of Present illness Narrative Images from the original note were not included. 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 Continue steroids in the meanwhile Mouna Bautista MD documented [facility] this encounter [facility] 09-29-2023 Miscellaneous Notes Please ask the following [...] OPINION? - Patient saw Dr. Byrne at [facility] Hospital Visit 09/23-08/26/2023 5. PATIENT IS SCHEDULED ON/WITH: - 12/05/2023 at 10:[address] Santana [facility] this encounter [facility] 09-29-2023 Telephone encounter Note Please ask the [...] OPINION? - Patient saw Dr. Byrne at [facility] Hospital Visit 09/23-08/26/2023 5. PATIENT IS SCHEDULED ON/WITH: - 12/05/2023 at 10:[address] Santana [facility] 09-26-2023 Nurse Note Patient alert and oriented. IV and telemetry discontinued. All discharge instructions have been reviewed and are understood by the patient and daughter. Patient left the unit via wheelchair with all of their belongings and in no distress. Patient discharged home. [facility] 09-26-2023 Nurse Note Patient alert and oriented. IV and telemetry discontinued. All discharge instructions have been reviewed and are understood by the patient and daughter. Patient left the unit via wheelchair with all of their belongings and in no distress. Patient discharged home. documented in this encounter [facility] 09-26-2023 Hospital course Narrative Images from the original note were not included. [facility]- Hospital Medicine Discharge Summary Patient's [...] of the discharge: peripheral smear, flow cytometry, [facility] Course Jose Davidson a 78 y.o.female with no significant past medical history, she presented to the hospital with bilateral vision loss. Patient started to notice blurry vision in her left eye 09/19, she was evaluated by Ophthalmology outpatient who referred her to eye center in [place]. Over the weekend her left eye vision significantly deteriorated to a point where she could no longer see. On 09/22, she started developing vision loss in her right eye. She visited the eye center who sent her to ER right away. Patient initially presented to the [facility] ER, she was given Solu-Medrol 250 mg IV once and transferred to [facility] for further workup. Patient was evaluated [...] Your Medications These medications were sent to [facility]/pharmacy #[id number] AT CORNER OF [address] [address] aspirin 81 mg cyanocobalamin 1000 MCG tablet [...] diet Regular Texture Adult diet John Patel, DO [address] [facility] [address] Schedule an appointment as soon as possible for a visit in 1 week(s) Jt Jasso MD [address] [facility] [address] [facility] Rheumatology [facility] [phone] Schedule an appointment as soon as possible for a visit in 2 week(s) Joni Pizano MD [address] [facility], JASEN [address] [facility] [address] Schedule an appointment as soon as possible for a visit in 2 week(s) Sandy Pizano MD [address] [facility], [address], [address] [facility] [phone] Schedule an appointment as soon as possible for a visit in 1 month(s) Montana Bartlett MD [address] [facility] [id number] Schedule an appointment as soon as possible [...] questions. Electronically signed by: BART MILIAN MD [facility], Department of Internal Medicine 09/26/23 1:16 PM documented in this encounter [facility] 09-26-2023 Hospital Discharge instructions Bart Milian MD - 09/26/2023 1:15 PM EST You are started on Aspirin to reduce oysterman risk of vascular complications with you suspected condition (giant cell arteritis) also it will help with preventing thrombosis (clotting) given your Thrombocytosis (elevated platelet count). Please discuss any concerns with your primary care provider, momd teacher or medical billing specialist Discuss with primary care or momd teacher DEXA scan as you are expected to be on steroid medications for prolonged period of time (up to 6 months). Log term steroids can cause Osteoporosis. The following attachments cannot be sent through Care Everywhere.Polymyalgia rheumatica and giant cell arteritis ([place])[facility] History of Present illness Narrative Images from the original note were not included. [facility] PROGRESS NOTE DATE OF ADMISSION 09/23/2023 12:25 AM REASON FOR CONSULTATION: Acute B/L sudden painless vision loss concerning for B/l [facility] REFERRING PHYSICIAN: Goran Thomas MD PCP JOHN PATEL, ASSESSMENT AND PLAN: B/L vision loss likely 2/2 [facility] -Pt's initial symptoms were blur vision in L eye but unfortunately when she presented to [facility] she had complete vision loss in [...] SSA, SSB, scleroderma antibody, Tiki 1, Mejia, PERSONALIZED LIVING MANAGER, anti dsDNA, anti chromatin were negative. [...] no significant past medical history presented to [facility] 09/24 for concerns of vision loss in left eye. Patient was evaluated by nut chopper on 09/19/2023 due to blurry vision left [...] IV 1 dose and then transferred to [facility]. On presenting to [facility], she had complete vision loss in both eyes. She was started on IV Solu-Medrol 1000 mg for 3 days. She underwent bilateral temporal artery biopsy on 09/25/2023. During this admission she had workup done which showed positive SILVIA screen, mildly elevated rheumatoid factor at 21 and elevated anticentromere antibody. Anca ribosomal antibody, SSA, SSB, scleroderma antibody, Tiki 1, Mejia, PERSONALIZED LIVING MANAGER, anti dsDNA, anti chromatin were negative. PAST MEDICAL HISTORY: History reviewed. No pertinent past medical history. PAST SURGICAL HISTORY: Past Surgical History: Procedure Laterality Date APPENDECTOMY BIOPSY ARTERY TEMPORAL Bilateral 09/25/2023 Performed by Kristel Reid MD at [facility] TONSILLECTOMY TUBAL LIGATION ALLERGIES: Allergies Allergen [...] of the major arterial structures in the [place]. The paranasal sinuses are clear. [...] of the major arterial structures in the [place]. The paranasal sinuses are clear. [...] dependent >90 >59 ml/min/1.73sq.m Associated attestation - Jt Jasso MD - 09/26/2023 9:24 PM EST I have seen, examined and performed braswell parts of this encounter with my resident and I agree with the assessment and plan. Images from the original note were not included. [facility] [place] [facility] Progress Note Subjective: Status post [...] plan of care Jose De León MD,MD [facility] 11:24 AM 09/26/2023 Images from the original note were not included. [facility] Hospitalists Progress Note 09/25/2023 Patient Name: Jose [...] 09/25/2023 Performed by Kristel Reid MD at [facility] TONSILLECTOMY TUBAL LIGATION OBJECTIVE Vital Signs: Temp: [...] presents to the emergency department from her telecommunications cable jointer's office. She was being evaluated with an telecommunications cable jointer for possible giant cell arthritis. She said [...] Not on file Primary Care Physician JOHN PATEL DO Family Histroy History reviewed. No pertinent [...] from the original note were not included. [facility] General Neurology Consultation Note Consult Neurology Service: [phone] Primary Team: [facility] Chief Complaint and Reason for Consultation: Vision [...] was given referral to eye center in [facility], on Friday and Friday, vision on the left eye worsened significantly and she lost her vision on the left eye. On Friday 09/22, patient came to [place] to see an eye doctor, who asked her to go to the ED. patient initially went to [facility], given Solu-Medrol 250 mg IV once, transferred to [facility] for further workup and ophthalmology evaluation. According to the patient, her right eye vision worsened significantly on Friday, and she lost her vision on both eyes. Patient had no past medical history, she has not taking any scheduled medications, patient lives with her daughter, she is driving and working. Walking with no assistive devices. Upon initial assessment in [facility], patient had complete vision loss on [...] CTH, head and neck CTA done at [facility], reportedly unremarkable Impression: Binocular vision loss [...] to Friday 12-1:00 p.m. Primary Neurology service: [phone] Consult neurology service: [phone] Resident Stroke Service: [phone] If the patient belongs to the Stroke [...] from the original note were not included. [facility] 09/24/2023 Patient Name: [...] IgG 992 635 - 1,741 mg/dL Free Hoffman Lt Chains 2.91 (H) 0.33 - 1.94 [...] of the major arterial structures in the [place]. The paranasal sinuses are clear. [...] of the major arterial structures in the [place]. The paranasal sinuses are clear. [...] from the original note were not included. [facility] General Neurology Consultation Note Consult Neurology Service: [phone] Primary Team: [facility] Chief Complaint and Reason for Consultation: Vision [...] was given referral to eye center in [place]?, on Friday and Friday, vision on the left eye worsened significantly and she lost her vision on the left eye. On Friday 09/22, patient came to [place] to see an eye doctor, who asked her to go to the ED. patient initially went to [facility], given Solu-Medrol 250 mg IV once, transferred to [facility] for further workup and ophthalmology evaluation. According to the patient, her right eye vision worsened significantly on Friday, and she lost her vision on both eyes. Patient had no past medical history, she has not taking any scheduled medications, patient lives with her daughter, she is driving and working. Walking with no assistive devices. Upon initial assessment in [facility], patient had complete vision loss on [...] for bilateral optic disc swelling and pallor. Soman red spot in right eye. ESR 114 CRP 13.3 CTH, head and neck CTA done at [facility], reportedly unremarkable Impression: Binocular vision loss [...] to Friday 12-1:00 p.m. Primary Neurology service: [phone] Consult neurology service: [phone] Resident Stroke Service: [phone] If the patient belongs to the Stroke [...] from the original note were not included. [facility] Progress Note 09/23/2023 Patient [...] correct any mistakes. documented in this encounter [facility] 09-26-2023 Progress note Formatting of t his [...] - Sophia Rajan RN 09/26/23 11:05 AM [facility] 09-26-2023 Miscellaneous Notes Images from the original [...] at the bedside 7. Instruct patient/ patient rental representative about use of safety devices 8. Include patient/ patient rental representative in decisions related to safety Note: Evaluation of progress towards goal: No reports of injury during shift. Safety measures in place Problem: Low Risk Fall Score Description: Clifford Fall Score of 0 - 24 [facility] Goal: Patient should be free from fall Description: Interventions: 1. [place] to environment 2. Hourly rounds addressing the [...] non-skid footwear 11. Teach patient and patient rental representative to maintain environment for safety and [...] Description: INTERVENTIONS: 1. Encourage patient or legal rental representative to report early pain and ask [...] per policy 9. Teach patient or legal rental representative interventions for comforting Outcome: Progressing Note: [...] at the bedside 7. Instruct patient/ patient rental representative about use of safety devices 8. Include patient/ patient rental representative in decisions related to safety Outcome: [...] hygiene technique 7. Identify and instruct patient/patient rental representative in use of appropriate isolation precautions for identified infection/symptoms 8. Provide and discuss with patient/patient rental representative on educational MDRO sheet 9. Encourage and monitor nutritional status daily and consult him specialists if indicated 10. Implement neutropenic guidelines as needed 11. Review exposure to history of communicable disease and recent travel history on admission 12. Encourage annual influenza vaccine 13. Encourage pneumonia vaccine Outcome: Progressing Note: Evaluation of progress towards goal: Patient free from signs of infection. Afebrile. Continue to Monitor. Problem: Knowledge Deficit Goal: Patient/patient rental representative demonstrates understanding of disease process, treatment [...] of 0 - 24 or indicated by [facility] Assessment Goal: Patient should be free from fall Description: Interventions: 1. [place] to environment 2. Hourly rounds addressing the [...] non-skid footwear 11. Teach patient and patient rental representative to maintain environment for safety and engage in all aspects of fall prevention program Outcome: Progressing Note: Evaluation of progress towards goal: Patient free from falls and injury. Continue to monitor. Problem: Moderate - High Risk Fall Score Description: Clifford Fall Score of =/> 25 or indicated by [facility] Assessment Goal: Patient should be free from fall Description: Interventions: 1. [place] to environment 2. Hourly rounds addressing the [...] non-skid footwear 11. Teach patient and patient rental representative to maintain environment for safety and [...] (cane, walker) within reach 19. Request patient rental representative bring adaptive equipment/mobility aids from home or obtain and provide as needed 20. Consult pharmacy regarding effects of med's affecting mobility, cognition, and alternatives 21. Obtain physician order for PT if risk factors associated with mobility are present 22. Obtain physician order for OT as appropriate 23. Utilize diversional activities 24. Educate patient and patient rental representative how to maintain a safe environment during visitation times (notify nurse prior to leaving bedside) 25. Consider appropriateness of medical or non-medical assistant prn 26. Set up voiding schedule as appropriate [...] days ago. She was evaluated by her telecommunications cable jointer who felt that vision loss was secondary [...] stable. Condition: stable Kristel Reid MD [facility] Problem: Low Risk Fall Score Description: [place] Fall Score of 0 - 24 or indicated by [facility] Assessment Goal: Patient should be free from fall Description: Interventions: 1. [place] to environment 2. Hourly rounds addressing the [...] non-skid footwear 11. Teach patient and patient rental representative to maintain environment for safety and engage in all aspects of fall prevention program Outcome: Progressing Note: Evaluation of progress towards goal: Patient remained free from falls. Will continue to utilized fall prevention measures. Problem: Pain Goal: Patient goal is pain score less than 4, able to rest, and participant in treatment plan as appropriate Description: INTERVENTIONS: 1. Encourage patient or legal rental representative to report early pain and ask [...] per policy 9. Teach patient or legal rental representative interventions for comforting Outcome: Progressing Note: [...] at the bedside 7. Instruct patient/ patient rental representative about use of safety devices 8. Include patient/ patient rental representative in decisions related to safety Outcome: [...] hygiene technique 7. Identify and instruct patient/patient rental representative in use of appropriate isolation precautions for identified infection/symptoms 8. Provide and discuss with patient/patient rental representative on educational MDRO sheet 9. Encourage and monitor nutritional status daily and consult him specialists if indicated 10. Implement neutropenic guidelines as needed 11. Review exposure to history of communicable disease and recent travel history on admission 12. Encourage annual influenza vaccine 13. Encourage pneumonia vaccine Outcome: Progressing Note: Evaluation of progress towards goal: Patient afebrile, Monitoring labs. Problem: Knowledge Deficit Goal: Patient/patient rental representative demonstrates understanding of disease process, treatment [...] Description: INTERVENTIONS: 1. Encourage patient or legal rental representative to report early pain and ask [...] per policy 9. Teach patient or legal rental representative interventions for comforting Outcome: Progressing Note: [...] at the bedside 7. Instruct patient/ patient rental representative about use of safety devices 8. Include patient/ patient rental representative in decisions related to safety Outcome: [...] hygiene technique 7. Identify and instruct patient/patient rental representative in use of appropriate isolation precautions for identified infection/symptoms 8. Provide and discuss with patient/patient rental representative on educational MDRO sheet 9. Encourage and monitor nutritional status daily and consult him specialists if indicated 10. Implement neutropenic guidelines as [...] Description: INTERVENTIONS: 1. Encourage patient or legal rental representative to report early pain and ask [...] per policy 9. Teach patient or legal rental representative interventions for comforting Outcome: Progressing Note: [...] at the bedside 7. Instruct patient/ patient rental representative about use of safety devices 8. Include patient/ patient rental representative in decisions related to safety Outcome: [...] hygiene technique 7. Identify and instruct patient/patient rental representative in use of appropriate isolation precautions for identified infection/symptoms 8. Provide and discuss with patient/patient rental representative on educational MDRO sheet 9. Encourage and monitor nutritional status daily and consult him specialists if indicated 10. Implement neutropenic guidelines as needed 11. Review exposure to history of communicable disease and recent travel history on admission 12. Encourage annual influenza vaccine 13. Encourage pneumonia vaccine Outcome: Progressing Note: Evaluation of progress towards goal: Patient receiving antibiotics as ordered. Continue to monitor. Problem: Knowledge Deficit Goal: Patient/patient rental representative demonstrates understanding of disease process, treatment [...] be free from fall Description: Interventions: 1. [place] to environment 2. Hourly rounds addressing the [...] non-skid footwear 11. Teach patient and patient rental representative to maintain environment for safety and [...] at the bedside 7. Instruct patient/ patient rental representative about use of safety devices 8. Include patient/ patient rental representative in decisions related to safety Outcome: [...] hygiene technique 7. Identify and instruct patient/patient rental representative in use of appropriate isolation precautions for identified infection/symptoms 8. Provide and discuss with patient/patient rental representative on educational MDRO sheet 9. Encourage and monitor nutritional status daily and consult him specialists if indicated 10. Implement neutropenic guidelines as needed 11. Review exposure to history of communicable disease and recent travel history on admission 12. Encourage annual influenza vaccine 13. Encourage pneumonia vaccine Outcome: Progressing Note: Evaluation of progress towards goal: Patient has no signs and symptoms of infection. Problem: Low Risk Fall Score Description: Clifford Fall Score of 0 - 24 or indicated by [facility] Assessment Goal: Patient should be free from fall Description: Interventions: 1. [place] to environment 2. Hourly rounds addressing the [...] non-skid footwear 11. Teach patient and patient rental representative to maintain environment for safety and engage in all aspects of fall prevention program Outcome: Progressing Note: Evaluation of progress towards goal: Patient remained free from falls. Will continue to utilized fall prevention measures. [facility] Plan of care note Problem: Safety [...] at the bedside 7. Instruct patient/ patient rental representative about use of safety devices 8. Include patient/ patient rental representative in decisions related to safety Note: Evaluation of progress towards goal: No reports of injury during shift. Safety measures in place [facility] Plan of care note Problem: Low Risk Fall Score Description: Clifford Fall Score of 0 - 24 or indicated by [facility] Assessment Goal: Patient should be free from fall Description: Interventions: 1. [place] to environment 2. Hourly rounds addressing the [...] non-skid footwear 11. Teach patient and patient rental representative to maintain environment for safety and engage in all aspects of fall prevention program Outcome: Progressing Note: Evaluation of progress towards goal: Patient remained free from falls. Will continue to utilized fall prevention measures. [facility] [employer] 09-25-2023 Progress note Formatting of t his [...] - Sophia Rajan RN 09/25/23 1:[address] [facility] [employer] 09-25-2023 Plan of care note Problem: Pain Goal: Patient goal is pain score less than 4, able to rest, and participant in treatment plan as appropriate Description: INTERVENTIONS: 1. Encourage patient or legal rental representative to report early pain and ask [...] per policy 9. Teach patient or legal rental representative interventions for comforting Outcome: Progressing Note: [...] at the bedside 7. Instruct patient/ patient rental representative about use of safety devices 8. Include patient/ patient rental representative in decisions related to safety Outcome: [...] hygiene technique 7. Identify and instruct patient/patient rental representative in use of appropriate isolation precautions for identified infection/symptoms 8. Provide and discuss with patient/patient rental representative on educational MDRO sheet 9. Encourage and monitor nutritional status daily and consult him specialists if indicated 10. Implement neutropenic guidelines as needed 11. Review exposure to history of communicable disease and recent travel history on admission 12. Encourage annual influenza vaccine 13. Encourage pneumonia vaccine Outcome: Progressing Note: Evaluation of progress towards goal: Patient free from signs of infection. Afebrile. Continue to Monitor. Problem: Knowledge Deficit Goal: Patient/patient rental representative demonstrates understanding of disease process, treatment [...] of 0 - 24 or indicated by [facility] Assessment Goal: Patient should be free from fall Description: Interventions: 1. [place] to environment 2. Hourly rounds addressing the [...] non-skid footwear 11. Teach patient and patient rental representative to maintain environment for safety and engage in all aspects of fall prevention program Outcome: Progressing Note: Evaluation of progress towards goal: Patient free from falls and injury. Continue to monitor. Problem: Moderate - High Risk Fall Score Description: Clifford Fall Score of =/> 25 or indicated by [facility] Assessment Goal: Patient should be free from fall Description: Interventions: 1. [place] to environment 2. Hourly rounds addressing the [...] non-skid footwear 11. Teach patient and patient rental representative to maintain environment for safety and [...] (cane, walker) within reach 19. Request patient rental representative bring adaptive equipment/mobility aids from home or obtain and provide as needed 20. Consult pharmacy regarding effects of med's affecting mobility, cognition, and alternatives 21. Obtain physician order for PT if risk factors associated with mobility are present 22. Obtain physician order for OT as appropriate 23. Utilize diversional activities 24. Educate patient and patient rental representative how to maintain a safe environment during visitation times (notify nurse prior to leaving bedside) 25. Consider appropriateness of medical or non-medical assistant prn 26. Set up voiding schedule as appropriate (every 2 hours) Outcome: Progressing Note: Evaluation of progress towards goal: Patient free from falls and injury. Continue to monitor. [employer] 09-25-2023 Consult note Associated Order (s): IP CONSULT TO RHEUMATOLOGY Images from the original note were not included. [facility] CONSULT NOTE DATE OF ADMISSION 09/23/2023 12:25 AM REASON FOR CONSULTATION: Acute B/L sudden painless vision loss concerning for B/l [facility] REFERRING PHYSICIAN: Goran Thomas MD PCP JOHN PATEL, ASSESSMENT AND PLAN: B/L vision loss likely 2/2 [facility] -Pt's initial symptoms were blur vision in L eye but unfortunately when she presented to [facility] she had complete vision loss in [...] SSA, SSB, scleroderma antibody, Tiki 1, Mejia, PERSONALIZED LIVING MANAGER, anti dsDNA, anti chromatin were negative. -No concern for RA or scleroderma given lack of clinical symptoms Discussed with attending Dr. Romero Shah PGY-5, Rheumatology CHIEF COMPLAINT: Visual loss HISTORY OF PRESENT ILLNESS: Jose David is a 78 y.o. White or female who presents with no significant past medical history presented to [facility] 09/24 for concerns of vision loss in left eye. Patient was evaluated by nut chopper on 09/19/2023 due to blurry vision left [...] IV 1 dose and then transferred to [facility]. On presenting to [facility], she had complete vision loss in both eyes. She was started on IV Solu-Medrol 1000 mg for 3 days. She underwent bilateral temporal artery biopsy on 09/25/2023. During this admission she had workup done which showed positive SILVIA screen, mildly elevated rheumatoid factor at 21 and elevated anticentromere antibody. Anca ribosomal antibody, SSA, SSB, scleroderma antibody, Tiki 1, Mejia, PERSONALIZED LIVING MANAGER, anti dsDNA, anti chromatin were negative. [...] of the major arterial structures in the [place]. The paranasal sinuses are clear. [...] of the major arterial structures in the [place]. The paranasal sinuses are clear. [...] IgG 992 635 - 1,741 mg/dL Free Hoffman Lt Chains 2.91 (H) 0.33 - 1.94 [...] I agree with the assessment and plan. [facility] 09-25-2023 Consult note Associated Order (s): IP CONSULT TO RHEUMATOLOGY Images from the original note were not included. 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 -No concern for RA or scleroderma given lack of clinical symptoms Discussed with attending Dr. Roemro Shah PGY-5, Rheumatology CHIEF COMPLAINT: Visual loss HISTORY OF PRESENT ILLNESS: Jose David is a 78 y.o. White or female who presents with no significant past medical history presented to [facility] 09/24 for concerns of vision loss in left eye. Patient was evaluated by nut chopper on 09/19/2023 due to blurry vision left [...] IV 1 dose and then transferred to [facility]. On presenting to [facility], she had complete vision loss in both eyes. She was started on IV Solu-Medrol 1000 mg for 3 days. She underwent bilateral temporal artery biopsy on 09/25/2023. During this admission she had workup done which showed positive SILVIA screen, mildly elevated rheumatoid factor at 21 and elevated anticentromere antibody. Anca ribosomal antibody, SSA, SSB, scleroderma antibody, Tiki 1, Mejia, PERSONALIZED LIVING MANAGER, anti dsDNA, anti chromatin were negative. [...] of the major arterial structures in the [place]. The paranasal sinuses are clear. [...] of the major arterial structures in the [place]. The paranasal sinuses are clear. [...] IgG 992 635 - 1,741 mg/dL Free Hoffman Lt Chains 2.91 (H) 0.33 - 1.94 [...] presents to the emergency department from her telecommunications cable jointer's office. She was being evaluated with an telecommunications cable jointer for possible giant cell arthritis. She said [...] Not on file Primary Care Physician JOHN P HOUSE, DO Family Histroy History reviewed. No pertinent [...] concerns regarding management. ALANNA Guzman [facility] [place] Office/After hours: [phone] ALANNA Guzman 09/24/23 1521 Associated Order(s): IP CONSULT TO SPIRITUAL CARE Summary: Spiritual Care Consult for Advance Directive Assistance Spiritual Care Consult for Advance Directive Assistance Advance Directive: Warehouse Shipping Receiving Clerk provided patient with education on the need for advance directives and a copy of the [place] Advance Directive packet. Warehouse Shipping Receiving Clerk assisted patient in completing the advance directives. Patient completed and signed a healthcare power of trademark attorney. Patient was given the original and a copy. One copy placed in patient's chart. A foxing cutting machine operator is available 17/03 to offer spiritual and emotional support and may be reached through the [facility] hobbing press operator at [phone]. Associated Order(s): IP CONSULT TO OPHTHALMOLOGY Date: Reason for consult: I have been asked to evaluate the eyes of this 78-year-old lady who noticed sudden onset of foggy in the left eye 4 days ago this rapidly progressed to complete loss of vision in the left eye.. She saw an nut chopper who indicated to her that she had [...] the patient was given a referral to telecommunications cable jointer. Over the weekend patients vision in left eye continued to worsen and eventually lost all vision in left eye. Patient was seen by telecommunications cable jointer 09/22/2023 and time she would decreased vision also in her right eye. It was recommended that she go straight to the emergency department, for concern for giant cell arteritis. Initially she went to [facility] where they gave her Solu-Medrol 250 mg IV 1 dose and then transferred her to [facility]. 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 Caitie Wilder PA-C [facility] [address] [place] [address] September 23, 2023, 10:20 AM Please note that portions of this note were generated using voice recognition [employer] dictation software. Although every effort was made to ensure the accuracy of this automated clinic md associate, some errors in clinic md associate may have occurred. I have personally performed [...] need to start aspirin Joni PIZANO M.D. [facility] Day time contact: After hours answering service: [phone] [place] [address] Associated Order(s): IP CONSULT TO NEUROLOGY Images from the original note were not included. [facility] General Neurology Consultation Note Consult Neurology Service: [phone] Primary Team: SAMUEL Chief Complaint and Reason [...] was given referral to eye center in [facility], on Friday and Friday, vision on the left eye worsened significantly and she lost her vision on the left eye. On Friday 09/22, patient came to [place] to see an eye doctor, who asked her to go to the ED. patient initially went to [facility], given Solu-Medrol 250 mg IV once, transferred to [facility] for further workup and ophthalmology evaluation. According to the patient, her right eye vision worsened significantly on Friday, and she lost her vision on both eyes. Patient had no past medical history, she has not taking any scheduled medications, patient lives with her daughter, she is driving and working. Walking with no assistive devices. Upon initial assessment in [facility], patient had complete vision loss on [...] Reportedly ESR and CRP were elevated at [facility] Imaging: CTH, head and neck CTA done at [facility], reportedly unremarkable Other Testing: None Assessment: [...] follow Carlitos Caraballo MD PGY-3, Neurology Resident [place] Staffed with: (Dr. Byrne) This patient is being followed by the Neurology Resident service. Contact attending directly during these hours: Friday to 7:30-8:30 A.M. to Friday 12-1:00 p.m. Primary Neurology service: [phone] Consult neurology service: [phone] Resident Stroke Service: [phone] If the patient belongs to the Stroke [...] Pizano MD, PhD documented in this encounter [facility] 09-25-2023 Procedure note Operative Note Date: September [...] days ago. She was evaluated by her telecommunications cable jointer who felt that vision loss was secondary [...] stable. Condition: stable Kristel Reid MD [facility] 09-25-2023 Attending History and physical note HISTORY AND PHYSICAL INTERVAL NOTE: Jose David 1945 [id number] H&P reviewed. The patient was examined and there are no changes to the H&P. Kristel Reid MD Source Note - Faisal Rascon APRN-TECHNICAL ADJUSTER - 09/24/2023 10:37 AM EST Images from the original note were not included. Vascular History and Physical Examination/Consultation Note Reason for Consultation Bilateral temporal artery biopsy, concern for giant cell arteritis History and Present Illness Jose David is a 78 y.o. White or female who presents to the emergency department from her telecommunications cable jointer's office. She was being evaluated with an telecommunications cable jointer for possible giant cell arthritis. She said [...] concerns regarding management. ALANNA Guzman [facility] [place] Office/After hours: [phone] ALANNA Guzman 09/24/23 1521 ALANNA Guzman 09/25/23 0730 [employer] 09-25-2023 History and physical note HISTORY AND PHYSICAL INTERVAL NOTE: Jose David 1945 [id number] H&P reviewed. The patient was examined and [...] presents to the emergency department from her telecommunications cable jointer's office. She was being evaluated with an telecommunications cable jointer for possible giant cell arthritis. She said [...] is not nervous/anxious. Objective Vital signs: Vitals: 09/23/231999 08/31/24 0000 09/24/23 0440 09/24/23 0752 BP: 135/81 [...] concerns regarding management. ALANNA Guzman [facility] [place] Office/After hours: [phone] ALANNA Guzman 09/24/23 1521 ALANNA Guzman 09/25/23 0730 Images from the original note were not included. [facility] 09/23/2023 Patient Name: Jose [...] on ophthalmology recommendation, patient saw Ophthalmology in [place] today evaluated for possible giant cell arthritis, [...] pedis pulses present and equal bilaterally Skin: [place], warm, dry; no rashes or lesions Neurologic: [...] Electronically signed by: MD Nandini PAREDES M.D. [facility] This note was completed using a voice clinic md associate system. Every effort was made to ensure accuracy. However, inadvertent computerized clinic md associate errors may be present. documented in this encounter [facility] 09-24-2023 Plan of care note Problem: Low Risk Fall Score Description: Clifford Fall Score of 0 - 24 or indicated by [facility] Assessment Goal: Patient should be free from fall Description: Interventions: 1. [place] to environment 2. Hourly rounds addressing the [...] non-skid footwear 11. Teach patient and patient rental representative to maintain environment for safety and engage in all aspects of fall prevention program Outcome: Progressing Note: Evaluation of progress towards goal: Patient remained free from falls. Will continue to utilized fall prevention measures. [facility] 09-24-2023 Plan of care note Problem: Pain Goal: Patient goal is pain score less than 4, able to rest, and participant in treatment plan as appropriate Description: INTERVENTIONS: 1. Encourage patient or legal rental representative to report early pain and ask [...] per policy 9. Teach patient or legal rental representative interventions for comforting Outcome: Progressing Note: [...] at the bedside 7. Instruct patient/ patient rental representative about use of safety devices 8. Include patient/ patient rental representative in decisions related to safety Outcome: [...] hygiene technique 7. Identify and instruct patient/patient rental representative in use of appropriate isolation precautions for identified infection/symptoms 8. Provide and discuss with patient/patient rental representative on educational MDRO sheet 9. Encourage and monitor nutritional status daily and consult him specialists if indicated 10. Implement neutropenic guidelines as needed 11. Review exposure to history of communicable disease and recent travel history on admission 12. Encourage annual influenza vaccine 13. Encourage pneumonia vaccine Outcome: Progressing Note: Evaluation of progress towards goal: Patient afebrile, Monitoring labs. Problem: Knowledge Deficit Goal: Patient/patient rental representative demonstrates understanding of disease process, treatment plan, medications, and discharge instructions Description: INTERVENTIONS 1. Complete learning assessment and assess knowledge base 2. Provide teaching at level of understanding 3. Provide teaching via preferred learning method(s) Outcome: Progressing Note: Evaluation of progress towards goal: POC reviewed with patient, verbalizes understanding [facility] 09-24-2023 Progress note Formatting of t his [...] - Sophia Rajan RN 09/24/23 10:57 AM [facility] 09-24-2023 Consult note Formatting of th is note is different from the original. Images from the original note were not included. Vascular History and Physical Examination/Consultation Note Reason for Consultation Bilateral temporal artery biopsy, concern for giant cell arteritis History and Present Illness Jose David is a 78 y.o. White or female who presents to the emergency department from her telecommunications cable jointer's office. She was being evaluated with an telecommunications cable jointer for possible giant cell arthritis. She said [...] concerns regarding management. ALANNA Guzman [facility] [place] Office/After hours: [phone] ALANNA Guzman 09/24/23 1521 [employer] Work Phone: 09-23-2023 Plan of care note Problem: Pain Goal: Patient goal is pain score less than 4, able to rest, and participant in treatment plan as appropriate Description: INTERVENTIONS: 1. Encourage patient or legal rental representative to report early pain and ask [...] per policy 9. Teach patient or legal rental representative interventions for comforting Outcome: Progressing Note: [...] at the bedside 7. Instruct patient/ patient rental representative about use of safety devices 8. Include patient/ patient rental representative in decisions related to safety Outcome: [...] hygiene technique 7. Identify and instruct patient/patient rental representative in use of appropriate isolation precautions for identified infection/symptoms 8. Provide and discuss with patient/patient rental representative on educational MDRO sheet 9. Encourage and monitor nutritional status daily and consult him specialists if indicated 10. Implement neutropenic guidelines as needed 11. Review exposure to history of communicable disease and recent travel history on admission 12. Encourage annual influenza vaccine 13. Encourage pneumonia vaccine Outcome: Progressing Note: Evaluation of progress towards goal: monitor for signs and symptoms of infection [facility] 09-23-2023 Plan of care note Problem: Pain Goal: Patient goal is pain score less than 4, able to rest, and participant in treatment plan as appropriate Description: INTERVENTIONS: 1. Encourage patient or legal rental representative to report early pain and ask [...] per policy 9. Teach patient or legal rental representative interventions for comforting Outcome: Progressing Note: [...] at the bedside 7. Instruct patient/ patient rental representative about use of safety devices 8. Include patient/ patient rental representative in decisions related to safety Outcome: [...] hygiene technique 7. Identify and instruct patient/patient rental representative in use of appropriate isolation precautions for identified infection/symptoms 8. Provide and discuss with patient/patient rental representative on educational MDRO sheet 9. Encourage and monitor nutritional status daily and consult him specialists if indicated 10. Implement neutropenic guidelines as needed 11. Review exposure to history of communicable disease and recent travel history on admission 12. Encourage annual influenza vaccine 13. Encourage pneumonia vaccine Outcome: Progressing Note: Evaluation of progress towards goal: Patient receiving antibiotics as ordered. Continue to monitor. Problem: Knowledge Deficit Goal: Patient/patient rental representative demonstrates understanding of disease process, treatment [...] of 0 - 24 or indicated by [facility] Assessment Goal: Patient should be free from fall Description: Interventions: 1. [place] to environment 2. Hourly rounds addressing the [...] non-skid footwear 11. Teach patient and patient rental representative to maintain environment for safety and engage in all aspects of fall prevention program Outcome: Progressing Note: Evaluation of progress towards goal: Patient free from falls and injury. Continue to monitor. [facility] 09-23-2023 Consult note Associated Order (s): IP CONSULT TO SPIRITUAL CARE Summary: Spiritual Care Consult for Advance Directive Assistance Spiritual Care Consult for Advance Directive Assistance Advance Directive: Warehouse Shipping Receiving Clerk provided patient with education on the need for advance directives and a copy of the [place] Advance Directive packet. Warehouse Shipping Receiving Clerk assisted patient in completing the advance directives. Patient completed and signed a healthcare power of trademark attorney. Patient was given the original and a copy. One copy placed in patient's chart. A foxing cutting machine operator is available 17/03 to offer spiritual and emotional support and may be reached through the [facility] hobbing press operator at [phone]. [facility] 09-23-2023 Progress note Formatting of t his [...] for after d/c. Confirmed pharmacy with patient: [facility]. Previous DME at home: none. Previous Home [...] care - LIANE KEN 09/23/23 2:07 PM [facility] 09-23-2023 Progress note Formatting of t his note might be different from the original. Consulted for MAUREEN to rule out embolic process in setting of sudden vision loss. Discussed with neurology, recommend surface echo with bubble study prior to consideration of MAUREEN. If TTE unremarkable and continued concerns, please let us know. ALANNA Rosario 09/23/23 1300 [facility] Work Phone: 09-23-2023 Consult note Associated Order (s): IP CONSULT TO OPHTHALMOLOGY Date: Reason for consult: I have been asked to evaluate the eyes of this 78-year-old lady who noticed sudden onset of foggy in the left eye 4 days ago this rapidly progressed to complete loss of vision in the left eye.. She saw an nut chopper who indicated to her that she had [...] is indicated. Thanks Montana Bartlett MD, FACS. [facility] Work Phone: 09-23-2023 Consult note Associated Order [...] the patient was given a referral to telecommunications cable jointer. Over the weekend patients vision in left eye continued to worsen and eventually lost all vision in left eye. Patient was seen by telecommunications cable jointer 09/22/2023 and time she would decreased vision also in her right eye. It was recommended that she go straight to the emergency department, for concern for giant cell arteritis. Initially she went to [facility] where they gave her Solu-Medrol 250 mg IV 1 dose and then transferred her to [facility]. 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 Caitie Wilder PA-C [facility] [address] [place] [address] September 23, 2023, 10:20 AM Please note that portions of this note were generated using voice recognition [employer] dictation software. Although every effort was made to ensure the accuracy of this automated clinic md associate, some errors in clinic md associate may have occurred. I have personally performed [...] need to start aspirin Joni PIZANO M.D. [facility] Day time contact: After hours answering service: [phone] [place] [address] [employer] Work Phone: 09-23-2023 Plan of care note [...] at the bedside 7. Instruct patient/ patient rental representative about use of safety devices 8. Include patient/ patient rental representative in decisions related to safety Outcome: [...] hygiene technique 7. Identify and instruct patient/patient rental representative in use of appropriate isolation precautions for identified infection/symptoms 8. Provide and discuss with patient/patient rental representative on educational MDRO sheet 9. Encourage and monitor nutritional status daily and consult him specialists if indicated 10. Implement neutropenic guidelines as needed 11. Review exposure to history of communicable disease and recent travel history on admission 12. Encourage annual influenza vaccine 13. Encourage pneumonia vaccine Outcome: Progressing Note: Evaluation of progress towards goal: Patient has no signs and symptoms of infection. Problem: Low Risk Fall Score Description: Clifford Fall Score of 0 - 24 or indicated by [facility] Assessment Goal: Patient should be free from fall Description: Interventions: 1. [place] to environment 2. Hourly rounds addressing the [...] non-skid footwear 11. Teach patient and patient rental representative to maintain environment for safety and engage in all aspects of fall prevention program Outcome: Progressing Note: Evaluation of progress towards goal: Patient remained free from falls. Will continue to utilized fall prevention measures. [facility] 09-23-2023 Consult note Associated Order (s): IP CONSULT TO NEUROLOGY Images from the original note were not included. [facility] Neurology General Neurology Consultation Note Consult Neurology Service: [phone] Primary Team: SAMUEL Chief Complaint and Reason [...] was given referral to eye center in [facility], on Friday and Friday, vision on the left eye worsened significantly and she lost her vision on the left eye. On Friday 09/22, patient came to [place] to see an eye doctor, who asked her to go to the ED. patient initially went to [facility], given Solu-Medrol 250 mg IV once, transferred to [facility] for further workup and ophthalmology evaluation. According to the patient, her right eye vision worsened significantly on Friday, and she lost her vision on both eyes. Patient had no past medical history, she has not taking any scheduled medications, patient lives with her daughter, she is driving and working. Walking with no assistive devices. Upon initial assessment in [facility], patient had complete vision loss on [...] Reportedly ESR and CRP were elevated at [facility] Imaging: CTH, head and neck CTA done at [facility], reportedly unremarkable Other Testing: None Assessment: [...] follow Carlitos Caraballo MD PGY-3, Neurology Resident [place] Staffed with: (Dr. Byrne) This patient is being followed by the Neurology Resident service. Contact attending directly during these hours: Friday to 7:30-8:30 A.M. to Friday 12-1:00 p.m. Primary Neurology service: [phone] Consult neurology service: [phone] Resident Stroke Service: [phone] If the patient belongs to the Stroke [...] follow and update Sandy Pizano MD, PhD [employer] Work Phone: 09-23-2023 History and physical note Images from the original note were not included. [facility] Hospitalists History and Physical 09/23/2023 [...] on ophthalmology recommendation, patient saw Ophthalmology in [place] today evaluated for possible giant cell arthritis, [...] pedis pulses present and equal bilaterally Skin: [place], warm, dry; no rashes or lesions Neurologic: [...] Electronically signed by: MD Nandini PAREDES M.D. [facility] Hospitalists This note was completed using a voice clinic md associate system. Every effort was made to ensure accuracy. However, inadvertent computerized clinic md associate errors may be present. [facility] Evaluation note Diagnosis Vision blurred- Primary Other specified visual disturbances B12 deficiency Thrombocytosis Essential thrombocythemia Vision blurred Other specified visual disturbances Temporal arteritis (CMS-HCC) Giant cell arteritis Stroke-like symptoms documented [facility] Diagnosis Onset Date Resolution Status GERD (gastroesophageal reflux disease) acute Hospital discharge follow-up acute Temporal arteritis acute Vision loss, bilateral acute [facility] Work Phone: Evaluation note* Diagnosis Giant cell arteritis (CMS-HCC)- Primary Giant cell arteritis [facility] Diagnosis Normocytic anemia- Primary Unspecified anemia Thrombocytosis Essential thrombocythemia [facility] Diagnosis Giant cell arteritis (CMS-HCC)- Primary Giant cell arteritis Stroke-like symptoms Vision blurred Other specified visual disturbances Anemia, unspecified type [facility] Diagnosis Onset Date Resolution Status GERD (gastroesophageal reflux disease) acute History of cataract extraction with lens replacement acute Hospital discharge follow-up acute Temporal arteritis acute Vision loss, bilateral acute Acute effusion of left ear a cute Eustachian tube dysfunction [facility] Work Phone: InstructionsNot on filedocumented in this encounter [facility] filedocumented in [facility] System[facility]ructionsNot on filedocumented in this encounter [facility] Summary Purpose Family History No Family History Records FoundNo Family History Records FoundNo Family History Records FoundNo Family History Records FoundNo Family History Records FoundNo Family History Records FoundNo Family History Records Found Advance Directives No Advanced Directives Records FoundDocuments on File Type Date Recorded Patient Trial Lawyer Expl anation Durable Power of [employer] 09/23/2023 4:17 PM [facility] Pow er of [employer] Latest Code Status on File Code Status Date Activated Date Inactivated Comments Full Code 09/23/2023 12:33 AM 09/26/2023 7:44 PM Healthcare Agents on File Name Relationship Healthcare Agent Relationshi p Communication Mike David Son Health Care Agent Malinda Brito Daughter First Alternate Health Care Agent Documents on File Type Date Recorded Patient Trial Lawyer Expl anation Durable Power of [employer] 09/23/2023 4:17 PM [facility] Pow er of [employer] Latest Code Status on File Code Status [...] Documents on File Type Date Recorded Patient Trial Lawyer Expl anation Durable Power of [employer] 10/03/2023 8:14 AM Durable Power of [employer] 09/23/2023 4:17 PM [facility] Pow er of [employer] Healthcare Agents on File Name Relationship Healthcare Agent Relationshi p Communication Mike David Son Health Care Agent Malinda Brito Daughter First Alternate Health Care Agent Healthcare Agents on File Name Relationship Healthcare Agent Relationshi p Communication Mike David Son Health Care Agent Malinda Brito Daughter First Alternate Health Care Agent Advance Directive Response Recorded Date/ Time Advance Directives No June 22, 2018 4:12pm Reason for Referral Specialty Diagnoses / Procedures Referred By Jessica ga Referred To Contact Diagnoses B12 deficiency Thrombocytosis Vision blurred Temporal arteritis (CMS-HCC) Procedures Follow-up with primary care provider Bart Milian MD [address] [place] [id number] Referral ID Status Reason Start Date Expiration Date V isits Requested Visits Authorized [id number] Pending Review 09/26/2023 09/25/2024 1 1 Specialty Diagnoses / Procedures Referred By Jessica ga Referred To Contact Procedures Adult diet Bart Milian MD [address] [place] [id number] Referral ID Status Reason Start Date Expiration Date V isits Requested Visits Authorized [id number] Pending Review 09/26/2023 09/25/2024 1 1 Chief Complaint and Reason for Visit Chief Complaint ESTABLISH Reason for Visit GERD (gastroesophage al reflux disease) Hospital discharge follow-up Temporal arteritis Vision loss, bilateral Chief Complaint ESTABLISH BOTH EARS ARE BLOTHERING HER Reason for Visit GERD (gastroesophage al reflux disease) History of cataract extraction with lens replacement Hospital discharge follow-up Temporal arteritis Vision loss, bilateral Acute effusion of left ear Eustachian tube dysfunction Additional Source Comments INFORMATION SOURCE (unrecogn ized section and content) DATE CREATED AUTHOR 11/18/2021 [facility] DATE CREATED AUTHOR AUTHOR'S ORGANIZ ATION 01/31/2023 [facility] DATE CREATED AUTHOR AUTHOR'S ORGANIZ ATION 04/15/2023 [facility] DATE CREATED AUTHOR AUTHOR'S ORGANIZ ATION 10/04/2023 [facility] DATE CREATED AUTHOR AUTHOR'S ORGANIZ ATION 11/08/2023 [facility] DATE CREATED AUTHOR AUTHOR'S ORGANIZ ATION 01/04/2024 [facility] DATE CREATED AUTHOR AUTHOR'S ORGANIZ ATION 01/06/2024 [facility] Reason for Visit (unrecogniz ed section and content) Specialty Diagnoses / Procedures Referred By Contchang t Referred To Contact Diagnoses Vision blurred Stroke-like symptoms CVA symptoms Tono Pan MD [address] [place] [address] Referral ID Status Reason Start Date Expiration Date Visits Re quested Visits Authorized [id number] 1 Reason Onset Date Comments Hospital [...] at 1400 0837 (Given - Provider: Kimberly Chin, RN) 0613 (MAR Hold - Provider: Automatic [...] Auto Held - Provider: Automatic Transfer Provider)1151 ([facility] Unhold - Provider: Automatic Transfer Provider) 0855 [...] Auto Held - Provider: Automatic Transfer Provider)1151 ([facility] Unhold - Provider: Automatic Transfer Provider) predniSONE [...] (Dose Auto Held - Provider: Automatic Transfer Provider)115 (MAR Unhold - Provider: Automatic Transfer Provider)2100 (Not Given - Provider: Jc Pelayo RN - Reason: Other) 0901 (Given - Provider: Caryn Briceno RN) sulfamethoxazole-trimet hoprim (BACTRIM DS) 800-160 mg tablet 1 tablet 1 tablet, oral, 3 times weekly (Once per day on Friday), First dose on Fri09/26/23 at 0900, Indication: PJP prophylaxis 0857 (Given - Provider: Caryn Briceno RN) PRN Medication Order 09/24/2023 09/25/2023 09/26/2023 acetaminophen (TYLENOL) tablet 650 mg 650 mg, oral, 3 times daily PRN, mild pain - pain scale 1-3, moderate pain - pain scale 4-6, Temperature greater than 38.3 C, Starting on Fri09/23/23 at 0032, For 2 doses, [Warning: Total Acetaminophen not to exceed more than 4 grams (4000 mg) in 24 hours] 06 (OCT Hold - Provider: Automatic Transfer Provider - Reason: Patient not available)1007 (Given - Provider: Jennifer Lawton RN)1151 ([facility] Unhold - Provider: Automatic Transfer Provider) dextrose (GLUTOSE) 40 % gel 15 g 15 g, oral, As needed, low blood sugar, blood glucose less than 70 mg/dL, Starting on Fri09/23/23 at 0032, If patient conscious and taking PO. If blood glucose is not greater than 70 mg/dL after initial treatment, repeat treatment. 0613 (OCT Hold - Provider: Automatic Transfer Provider - Reason: Patient not available)1151 (OCT Unhold - Provider: Automatic Transfer Provider) dextrose 5 % (D5W) infusion 100 mL/hr, intravenous, Continuous PRN, blood glucose less than 70 mg/dL, Starting on Fri09/23/23 at 0032, Use immediately following dextrose 50% or glucagon treatment for patients who are unconscious or NPO. Contact prescriber for additional orders. If blood glucose is not greater than 70 mg/dL after initial treatment, repeat treatment. 06 (OCT Hold - Provider: Automatic Transfer Provider - Reason: Patient not available)1151 (OCT Unhold - Provider: Automatic Transfer Provider) [...] treatment. VESICANT (RED) Warning: HYPERTONIC solution. 612 (OCT Hold - Provider: Automatic Transfer Provider - Reason: Patient not available)1151 ([facility] Unhold - Provider: Automatic Transfer Provider) [...] mg/dL after initial treatment, repeat treatment. 0613 ([facility] Hold - Provider: Automatic Transfer Provider - Reason: Patient not available)1151 ([facility] Unhold - Provider: Automatic Transfer Provider) ondansetron (PF) (ZOFRAN) injection 4 mg 4 mg, intravenous, Every 8 hours PRN, nausea, vomiting, Starting on Fri09/23/23 at 0032, Administer over 2-5 minutes. 0613 ([facility] Hold - Provider: Automatic Transfer Provider - Reason: Patient not available)1151 ([facility] Unhold - Provider: Automatic Transfer Provider) sennosides-docusate sodium (SENOKOT-S) 8.6-50 mg 1 tablet 1 tablet, oral, Every 12 hours PRN, constipation, Starting on Fri09/23/23 at 0032 0613 ([facility] Hold - Provider: Automatic Transfer Provider - Reason: Patient not available)1151 ([facility] Unhold - Provider: Automatic Transfer Provider) [...] use, Starting on Fri09/23/23 at 0032 0613 ([facility] Hold - Provider: Automatic Transfer Provider - Reason: Patient not available)1151 ([facility] Unhold - Provider: Automatic Transfer Provider) sodium chloride 0.9 % flush bag 25 mL, intravenous, at 100 mL/hr, Administer over 15 Minutes, As needed, line care, line care after IVPB administration, Starting on Fri09/23/23 at 0032 0613 ([facility] Hold - Provider: Automatic Transfer Provider - Reason: Patient not available)1151 ([facility] Unhold - Provider: Automatic Transfer Provider) sodium chloride 0.9 % infusion 20 mL/hr, intravenous, Continuous PRN, to maintain patency of lines, Starting on Fri09/23/23 at 0032 1008 (Restarted - Provider: Kimberly Chin RN) 0613 (OCT Hold - Provider: Automatic Transfer Provider - Reason: Patient not available)1151 ([facility] Unhold - Provider: Automatic Transfer Provider) sodium chloride 0.9% (NS) irrigation bottle (CANCELED) As needed, Starting on Carrie 09/25/23 at 0807, Intra-op 0807 (Given - Provider: Kristel Reid MD - Comment: GIVEN TO STERILE FIELD) Care Teams (unrecognized sec tion and content) Physician Executive Relationship Specialty Start Date End Date John Patel DO [address] [place] [id number] PCP - General 01/23/17 Physician Executive Relationship Specialty Start Date End Date John Patel DO [address] [place] [address] [id number] PCP - General 01/23/17 Team Status: Active Member Role Status Dates Giovanna Graf APRN CHAIN LINK FENCE INSTALLER-C Primary Care Provider Active Team Status: Inactive Member Role Status Dates Giovanna Graf APRN CH[employer] LINK FENCE INSTALLER-C Primary Care Provider, Attending Provider Active Start: October 16, 2023 End: October 16, 2023 Physician Executive Relationship Specialty Start Date End Date Giovanna Graf APRN-NP [address] [place] [id number] PCP - General Nurse Practitioner 10/10/23 Physician Executive Relationship Specialty Start Date End Date Giovanna Graf APRN-NP [address] [place] [id number] PCP - General Nurse Practitioner 10/10/23 Team Status: Active Member Role Status Dates Giovanna Graf APRN CHAIN LINK FENCE INSTALLER-Daniella Primary Care Provider, Attending Provider Active Start: October 30, 2023 Team Status: Active Member Role Status Dates REINA Portillo Primary Care Provider Active Start: December 29, 2023 Jt Jasso MD Attending Provider Active S tart: December 29, 2023 Team Status: Inactive Member Role Status Dates Giovanna Graf APRN CH[employer] LINK FENCE INSTALLER-Daniella Primary Care Provider, Attending Provider Active Start: December 29, 2023 End: December 29, 2023 Goals (unrecognized section and content) Goals may be documented in a n alternate sectionGoals may be documented in an alternate section FOR RECORDS PERTAINING TO PATIENTS [...] BE BASED ON THE PRIMARY CLINICAL RECORDS. [facility]. provides no warranty or guarantee of the accuracy or completeness of information in this document.
--- NOTE | 2024-01-08 18:17 | CT_ITS ---
[address] [address] Patient Name: JOSE DALAL MRN: [id number] date: 1945 Sex: F Assigned Patient Location: ER Current Patient Location: Accession/Order Number: [id number] Exam Date: 01/08/2024 18:40 Report Date: 01/08/2024 19:53 At the request of: JOAQUIN TORRES Procedure: CT soft tissue neck wo con EXAM: CT soft tissue neck wo con; [id number] REASON FOR EXAM: fall TECHNIQUE: Helical CT images of the neck obtained without IV contrast. Coronal and sagittal reconstructions were generated at the scanner. Dose reduction technique used: Automated exposure control and/or adjustment of the mA and/or kV according to patient size and/or use of iterative reconstruction technique. COMPARISON: CTA neck 09/22/[address] cervical spine 08/03/2023. FINDINGS: Note: Compared with contrasted CT exams, noncontrast images are less sensitive for the detection of various types of soft tissue, solid organ, and vascular pathologies. Visualized intracranial contents: Within normal limits. Orbits: Within normal limits. Sinuses: Clear. Director Learning space: Within normal limits. Buccal space: Within normal limits. Parotid space: No mass, stone, or acute inflammatory changes. Submandibular space: Within normal limits. Sublingual space: Within normal limits. Submental space: Within normal limits. Oral cavity: Within normal limits. Pharynx/Pharyngeal mucosal space: Within normal limits. Parapharyngeal space: Within normal limits. Retropharyngeal space: No abnormal thickening. Carotid space: Within normal limits. Perivertebral space: Within normal limits. Visceral space: -No thyroid nodules. Lymph nodes: No lymphadenopathy by size criteria. Superficial soft tissues of the neck: -Pain marker in the left anterior lower neck is located just superficial to a superficial left ectopic vessel which sits on top of the posterolateral aspect of the sternocleidomastoid. -No hematoma. Lung apices: Clear. Osseous: No acute osseous abnormality. No suspicious osseous lesion. CT/CT soft tissue neck wo con IMPRESSION: 1. No acute traumatic abnormality demonstrated (within the limitations provided by this noncontrast exam). 2. The pain marker at the left base of neck sits just superficial to an ectopic vessel which may be the source of pain. Electronically authenticated by: LETY BATEMAN Date: 01/08/2024 19:53
--- NOTE | 2024-01-08 18:17 | XR_ITS ---
The [address] [address] Patient Name: JOSE DALAL MRN: [id number] date: 1945 Sex: F Assigned Patient Location: ER Current Patient Location: Accession/Order Number: [id number] Exam Date: 01/08/2024 18:40 Report Date: 01/08/2024 19:38 At the request of: JOAQUIN TORRES Procedure: XR shoulder LT min 2V EXAM: XR shoulder LT min 2V HISTORY: fall , now with neck and shoulder pain. COMPARISON: None. TECHNIQUE: 3 views of the left shoulder were obtained. FINDINGS: There is no apparent acute fracture or dislocation. There is mild widening of the acromioclavicular joint, without other evidence of a separation. The glenohumeral joint is intact. No abnormal soft tissue calcifications are present. XR/XR shoulder LT min 2V IMPRESSION: No apparent acute fracture or dislocation. There is mild relative widening of the acromioclavicular joint space. Comparison with a previous study would be helpful in determining the chronicity of these findings. Electronically authenticated by: ADRIANE VACA Date: 01/08/2024 19:38
--- NOTE | 2024-01-08 18:18 | ED_ITS ---
HPI HPI - General Adult General Chief complaint: Fall Stated complaint: Neck Pain from fall Time Seen by Provider: 01/08/24 18:12 Source: patient Mode of arrival: walk-in History of Present Illness HPI narrative: Patient is a 78-year-old female who presents to the emergency department for injury to the left side of the neck and shoulder after a fall at home just prior to arrival. She has a previous history of a stroke with visual deficit. She states that she tripped and fell against the side of a box and sustained a small abrasion to the left side of the neck. Her primary concern is that she may have broken her neck because she had a family member who did so previously. She denies hitting her head, she is noted to have a small abrasion to the left side of the neck with no deep lacerations or active bleeding. She reports associated diffuse left shoulder pain. She denies any numbness or tingling to the left hand. No posterior neck tenderness or back pain. She has been able to ambulate since falling. Related Data Previous Rx's ?Medication ?Instructions ?Recorded cyclobenzaprine 10 mg tablet 10 mg PO TID PRN muscle spasm #20 08/03/23 tabs ibuprofen 800 mg tablet 800 mg PO Q8H PRN pain #20 tabs 08/03/23 methocarbamol 500 mg tablet 500 mg PO Q8H PRN muscle pain #15 01/08/24 tabs tramadol 50 mg tablet 50 mg PO Q4H PRN pain 2 days #12 01/08/24 tabs Allergies Allergy/AdvReac Type Severity Reaction Status Date / Time Penicillins Allergy Mild Flushing Verified 08/03/23 09:31 Opioid HPI Opioid Management Most Recent Opioid Data: Last Pain Scale 2 05/05/23 08:04 Review of Systems ROS Constitutional Denies: fever or chills Ears, nose, mouth, and throat Denies: throat pain or nasal congestion Cardiovascular Denies: chest pain Respiratory Denies: shortness of breath or cough Gastrointestinal Denies: nausea or vomiting Musculoskeletal Reports: neck pain, extremity pain and joint pain; Denies: back pain or limited range of motion Integumentary/Breast Denies: rash Neurological Denies: headache Hematologic/Lymphatic Denies: easy bruising or easy bleeding PFSH PFSH Medical History Acid reflux ?K21.9 - Gastro-esophageal reflux disease without esophagitis (ICD-10) Kidney calculi ?N20.0 - Calculus of kidney (ICD-10) Neck pain ?M54.2 - Cervicalgia (ICD-10) Surgical History History of bilateral tubal ligation ?Z98.51 - Tubal ligation status (ICD-10) History of phacoemulsification of cataract of both eyes with intraocular lens implantation ?Z98.41 - Cataract extraction status, right eye (ICD-10) ?Z98.42 - Cataract extraction status, left eye (ICD-10) ?Z96.1 - Presence of intraocular lens (ICD-10) Hx of appendectomy ?Z90.49 - Acquired absence of other specified parts of digestive tract (ICD- 10) Social History Smoking status: Former smoker Exam Narrative Exam Narrative: Gen.: Awake, alert, in no distress Head: Normocephalic, atraumatic ENT: Moist mucous membranes, No cervical tenderness of the posterior cervical spine with abrasion and minimal swelling to the left side of the neck. No deep lacerations, no large hematomas or pulsatile mass noted. No injury to the anterior neck. Clear speech with no stridor. Respiratory: No respiratory distress Extremities: Moves extremities equally, No bony point tenderness of the left shoulder, normal property utilization officer strength in the bilateral hands with no bony tenderness of the left arm. No obvious deformity or sulcus sign Psych: Normal mood and affect Neuro: No focal neuro deficit Skin: Warm, dry, intact Constitutional Vital Signs, click to edit/add: Last Vital Signs Temp 97.8 F 01/08/24 18:06 Pulse 103 H 01/08/24 18:06 Resp 16 01/08/24 18:06 BP 152/91 H 01/08/24 18:06 Pulse Ox 96 01/08/24 18:06 O2 Del Method Room Air 01/08/24 18:06 Course Vital Signs Vital signs: Vital Signs Temperature 97.8 F 01/08/24 18:06 Pulse Rate 103 H 01/08/24 18:06 Respiratory Rate 16 01/08/24 18:06 Blood Pressure 152/91 H 01/08/24 18:06 Pulse Oximetry 96 01/08/24 18:06 Oxygen Delivery Method Room Air 01/08/24 18:06 Temperature 97.8 F 01/08/24 18:06 Pulse Rate 103 H 01/08/24 18:06 Respiratory Rate 16 01/08/24 18:06 Blood Pressure 152/91 H 01/08/24 18:06 Pulse Oximetry 96 01/08/24 18:06 Oxygen Delivery Method Room Air 01/08/24 18:06 Medical Decision Making MDM Narrative Medical decision making narrative: X-ray of the shoulder, CT of the neck with no evidence of acute abnormalities. Patient treated with bacitracin to the neck. She is started on Robaxin and tramadol for home. Follow-up with PCP and return to the ER if symptoms change or worsen. Medical Records Medical records reviewed: Yes I reviewed the patient's medical records Imaging Data XR shoulder: Attestation: I have reviewed the pertinent imaging results. Radiologist's impression: ITS Impressions Shoulder X-Ray 01/08/24 18:17 IMPRESSION: No apparent acute fracture or dislocation. There is mild relative widening of the acromioclavicular joint space. Comparison with a previous study would be helpful in determining the chronicity of these findings. Electronically authenticated by: ADRIANE VACA Date: 01/08/2024 19:[address] 01/08/24 18:17 IMPRESSION: 1. No acute traumatic abnormality demonstrated (within the limitations provided by this noncontrast exam). 2. The pain marker at the left base of neck sits just superficial to an ectopic vessel which may be the source of pain. Electronically authenticated by: LETY BATEMAN Date: 01/08/2024 19:53 Discharge Plan Discharge Stand Alone Forms: Portal Instructions Chief Complaint: Fall Clinical Impression: Acute neck pain, Acute pain of left shoulder, Abrasion, Fall Patient Disposition: Home, Self-Care Time of Disposition Decision: 19:59 Condition: Good Prescriptions / Home Meds: New methocarbamol 500 mg tablet 500 mg PO Q8H PRN (Reason: muscle pain) Qty: 15 0RF tramadol 50 mg tablet 50 mg PO Q4H PRN (Reason: pain) 2 Days Qty: 12 0RF Rx Instructions: M54.2 No Action cyclobenzaprine 10 mg tablet 10 mg PO TID PRN (Reason: muscle spasm) Qty: 20 0RF ibuprofen 800 mg tablet 800 mg PO Q8H PRN (Reason: pain) Qty: 20 0RF Print Language: Maori Instructions: Acute Neck Pain (ED) Referrals: RENE JENKINS [Primary Care Provider] - 1 week
[2024-01-08] MEDS: ADACEL DIPH,PERTUSS(ACELL),TET VAC/PF 0.5 ML ADULT SYRINGE IM (19:20)
[2024-01-08] MEDS: BACITRACIN 0.9 GM PACKET 1 PACKET TOPICAL (19:21)
[2024-01-08] MEDS: METHOCARBAMOL 500 MG TABLET PO (20:00)
[2024-01-08] MEDS: ACETAMINOPHEN 325 MG TABLET 650 MG PO (20:00)
== END 2024-01-08 20:14 | disposition home or self-care (01) ==
PROVIDERS: Emergency Provider Emergency Medicine Emergency Medical Services; PCP Nurse Practitioner Family
DX: S10.91XA Abrasion of unspecified part of neck, initial encounter (principal); M54.2 Cervicalgia; M25.512 Pain in left shoulder; Z23 Encounter for immunization; W01.198A Fall on same level from slipping, tripping and stumbling with subsequent striking against other object, initial encounter; I69.398 Other sequelae of cerebral infarction; K21.9 Gastro-esophageal reflux disease without esophagitis; Z87.442 Personal history of urinary calculi; Z98.51 Tubal ligation status; Z90.49 Acquired absence of other specified parts of digestive tract; Z96.1 Presence of intraocular lens; Z98.41 Cataract extraction status, right eye; Z98.42 Cataract extraction status, left eye; Z87.891 Personal history of nicotine dependence
CPT/HCPCS: 70490; 73030; 90471; 90715; 99285

== ENCOUNTER 2024-03-05 09:05 | Outpatient (OUT) | payer MEDICARE, SELFPAY ==
[2024-03-05 10:11] LABS: Basophils Percent Auto 0.6 % (0.2-2.0); Eosinophils Absolute Auto 0.1 10^3/uL (0.0-0.7); Eosinophils Percent Auto 1.7 % (0.9-7.0); Hematocrit 37.7 % (36.0-48.0); Hemoglobin 12.2 g/dL (12.0-16.0); Immature Granulocytes Abs Auto 0.02 10^3/uL (0.00-0.03); Immature Granulocytes Pct Auto 0.3 % (0.0-0.5); Lymphocytes Absolute Auto 3.8 10^3/uL (1.2-3.8); Lymphocytes Percent Auto 54.9 % (20.5-60.0); Mean Corpuscular HGB Conc 32.4 g/dL (29.9-35.2); Mean Corpuscular Hemoglobin 31.4 pg (26.7-34.0); Mean Corpuscular Volume 96.9 fL (81.0-99.0); Mean Platelet Volume 8.7 fL (9.5-13.5); Monocytes Absolute Auto 0.6 10^3/uL (0.3-0.8); Monocytes Percent Auto 8.7 % (1.7-12.0); Neutrophils Absolute Auto 2.3 10^3/uL (1.4-6.5); Neutrophils Percent Auto 33.8 % (43.0-75.0); Platelet Count 289 10^3/uL (150-450); Red Blood Count 3.89 10^6/uL (4.20-5.40); Red Cell Distribution Width 13.7 % (11.0-15.0); White Blood Count 6.9 10^3/uL (4.0-11.0)
[2024-03-05 10:52] LABS: Percent Iron Saturation 44.6 %
== END 2024-03-05 09:06 | disposition home or self-care (01) ==
LOC: LAB 09:05
PROVIDERS: PCP Nurse Practitioner Family
DX: M31.6 Other giant cell arteritis (principal); R29.90 Unspecified symptoms and signs involving the nervous system; H53.8 Other visual disturbances; D64.9 Anemia, unspecified
CPT/HCPCS: 36415; 82728; 83540; 83550; 85025

== ENCOUNTER 2024-04-30 06:54 | Outpatient (OUT) | payer MEDICARE, SELFPAY ==
--- OUTSIDE RECORDS SUMMARY | 2024-04-30 07:02 | XMS_ITS | CCD ---
Author Organization [facility] CliniSyvt Care Team Providers Care Communications Department Chair Name Role Phone LEAH, DR PATO Perez Admitting Unavailalonso e LEAH, DR PATO Perez Consulting Unavailabl e LEAH, DR PATO Perez Attending Unavailabl e JORGE, DR BECKHAM Primary Care Unavailable SHANTELL GARCIA Consulting Unavailable CHANEL ., DR NICHOLAS Attending Unavailable KARAN JENKINS Consulting Unavailable JORGE, DR BECKHAM Primary Care Unavailable CHANEL ., DR NICHOLAS Admitting Unavailable LADI LOPEZ Consulting Unavailable Tai SENIOR, Andvolodymyr Gordon Attending Unavailable Giedraitis , Andvolodymyr Gordon Attending Unavailable Gicjitis , Andrius Gordon Attending Unavailable Gicjitis , Andrius Gordon Attending Unavailable Famitis , Andrius Gordon Attending Unavailable Tai SENIOR, Andvolodymyr Gordon Attending Unavailable John Patel DO Primary Care Provider TONO PAN Admitting Unavailable TONO PAN Attending Unavailable YOEL GAVIN Referring Unavailable JOHN PATEL Primary Care Unavailable MONTANA BARTLETT Consulting Unavailable ERA BYRNE Consulting Unavailable JOSE SHAW Consulting Unavailable GONZALES CARRILLO Consulting Unavailable MOUAN KURTZ Consulting Unavailable ROMERO NEZAKenna Kline Consulting Unavailable CARLITOS CARABALLO Referring Unavail able JOHN PATEL Primary Care Unavailable TREVIN LÓPEZ Referring Unavailable JOHN PATEL Primary Care Unavailable RICKIE STEWART Attending Unavailable JOHN PATEL Primary Care Unavailable Lesia SERVICE LINE BUS CLEANER-SUPERVISOR VEGETABLE FARMINGGiovanna Primary Care Formerly [facility] er JT JASSO I Attending Unavailable JACKY JASSOZAKenna Kline Attending Unavailable TJ JASSO I Attending Unavailable SALENA OCHOA Attending Unavailable HOUSE, JOHN P Referring Unavailable ROHRBACHER, GIOVANNA Primary Care Unavailable ALYSIA, MOUNA F Attending Unavailable ROHRBACHER, GIOVANNA Referring Unavailable ROHRBACHER, GIOVANNA Primary Care Unavailable HOUSE, JOHN P Referring Unavailable HOUSE, JOHN P Primary Care Unavailable HOUSE, JOHN P Referring Unavailable HOUSE, JOHN P Primary Care Unavailable HOUSE, JOHN P Referring Unavailable HOUSE, JOHN P Primary Care Unavailable ALYSIA, TIFFANYAMED F Attending Unavailable HOUSE, JOHN P Referring Unavailable ROHRBACHER, GIOVANNA Primary Care Unavailable AIDEEALLIE Attending Unavailable HOUSE, JOHN P Referring Unavailable ROHRBACHER, GIOVANNA Primary Care Unavailable MYRA COTA Attending Unavailable ROHRBACHER, GIOVANNA Referring Unavailable ROHRBACHER, GIOVANNA Primary Care Unavailable Allergies Allergy Classification Reported Allergen(s) Allergy Type Date of Onset Reaction(s) Facility Penicillins (antibiotic) (1 source) Penicillin; Translations: [PENICILLIN] Drug Allergy 4 [facility] (1 source) Penicillins Drug allergy (disorder) [facility] Repository (9 sources) Penicillin; Translations: [PENICILLIN] Drug Allergy 4 Confusion, Fever [facility] (1 source) Ciprofloxacin; Translations: [CIPROFLOXACIN] Drug Allergy 4 [facility] Repository Medications Current Medications Medication Drug Class(es) Dates Sig (Normalized) Sig (Original) acetaminophen 500 mg oral capsule (11 sources) Start: 10-16-2023 take 500 mg by [...] aspirin 81 mg delayed release oral tablet (8 sources) Platelet Aggregation Inhibitor, Nonsteroidal Anti-inflammatory Drug Start: 09-26-2023 End: 10-26-2023 take 81 mg by mouth once daily Aspirin Active 81 MG PO Daily October 16, 2023 1:00am ferrous sulfate 325 mg oral tablet (3 sources) Start: 12-29-2023 take 1 tablet by mouth twice daily Ferrous Sulfate (Feosol) 325 mg (65 mg iron) tablet Active 325 MG PO Twice daily December 29, 2023 12:00am Start: 11-06-2023 take 1 tablet by irwin th in the morning, then take 1 tablet by mouth at mealtime ferrous sulfate 325 (65 FE) mg EC tablet Take 1 tablet (325 mg total) by mouth in the morning and 1 tablet (325 mg total) in the evening. Take with meals. 180 tablet 1 11/06/2023 Active fluticasone propionate 0.05 mg/actuat metered dose nasal spray (3 sources) Corticosteroid Start: 01-23-2024 take 1 spray(s) nasal route twice daily Fluticasone Propionate Active 0 .ROUTE .COMPLEX 48 January 23, 2024 8:38am USE 1 SPRAY IN EACH NOSTRIL TWICE A DAY Start: 12-29-2023 End: 01-23-2024 take 1 spray(s) nasal route twice daily Fluticasone Propionate (Flonase Allergy Relief) 50 mcg/actuation spray,suspension Discontinued 1 SPRAY INTRANASAL Twice daily 16 December 29, 2023 12:00am January 23, 2024 8:38am administer into each nostril predniSONE 2.5 mg oral tablet (11 sources) Start: 04-13-2024 take 5 mg by mouth once daily Prednisone Active 5 MG PO Daily April 13, 2024 12:00am Start: 12-29-2023 End: 04-13-2024 take 20 mg by mouth once daily Prednisone Discontinued 20 MG PO Daily December 29, 2023 9:29am April 13, 2024 11:02am Start: 10-16-2023 End: 12-29-2023 take 60 mg by mouth once daily Prednisone Discontinued 60 MG PO Daily October 16, 2023 1:00am December 29, 2023 9:30am Start: 09-27-2023 End: 10-27-2023 take 3 tablets by mouth once daily at breakfast predniSONE (DELTASONE) 20 mg tablet Take 3 tablets (60 mg total) by mouth daily with breakfast for 30 days. 90 tablet 0 09/27/2023 10/27/2023 Active Start: 09-26-2023 End: 09-26-2023 predniSONE (DELTASONE) table t 60 mg vitamin b12 1 mg oral capsule (9 sources) Vitamin B12 Start: 10-16-2023 take 1000 [...] Sig (Original) ciprofloxacin 500 mg oral tablet (3 sources) Quinolone Antimicrobial Start: 06-24-2018 End: 07-01-2018 take 500 mg by mouth twice daily Ciprofloxacin Hcl Discontinued 500 MG PO Twice daily 14 June 24, 2018 12:00am July 01, 2018 1:02am docusate sodium 50 mg / sennosides, assisted 8.6 mg oral tablet (1 source) Start: [...] minutes. oxybutynin chloride 5 mg oral tablet (3 sources) Cholinergic Muscarinic Antagonist Start: 06-24-2018 End: [...] IVPB administration, Starting on Fri09/23/23 at 0032 sulfamethoxazole 800 mg / trimethoprim 160 mg oral tablet (9 sources) Dihydrofolate Reductase Inhibitor Antibacterial, Sulfonamide Antimicrobial Start: 10-16-2023 End: 04-13-2024 take 1 tablet by mouth three times daily Sulfamethoxazole-Trimethoprim (Bactrim Ds) 800-160 mg tablet Discontinued 1 TAB PO Three times daily October 16, 2023 1:00am April 13, 2024 10:48am Start: 09-29-2023 End: 10-29-2023 take 1 tablet by mouth three times weekly sulfamethoxazole-trimethoprim (BACTRIM D S) 800-160 mg per tablet Take 1 tablet by mouth 3 (three) times a week for 30 days. 12 tablet 0 09/29/2023 10/29/2023 Active Start: 09-26-2023 End: 09-26-2023 sulfamethoxazole-trimethopri m (BACTRIM DS) 800-160 mg tablet 1 tablet Problems Active Problems Problem Classification Problem Date Documented Date Episodic/Chronic Blindness and vision defects (5 sources) Bilateral visual impairment; Translations: [Unqualified visual [...] source) Anemia; Translations: [Anemia, unspecified] 11-06-2023 Episodic Disorders of lipid metabolism (2 sources) Other hyperlipidemia; Translations: [Other hyperlipidemia] Onset: 01-28-2024 Chronic Esophageal disorders (5 sources) Gastroesophageal reflux disease; Translations: [Gastro-esophageal reflux disease without esophagitis] 10-16-2023 Chronic Immunizations and screening for infectious disease (4 sources) Other specified abnormal immunological findings in serum; Translations: [Encounter for screening for other viral diseases] Onset: 01-28-2024 Episodic Neoplasms of unspecified nature or uncertain behavior (4 sources) Thrombocytosis; Translations: [Thrombocytosis] Onset: 11-06-2023 09-26-2023 Episodic Nutritional deficiencies (2 sources) Cobalamin deficiency; Translations: [Deficiency of other specified B group vitamins] Onset: 09-23-2023 09-23-2023 Episodic Other aftercare (3 sources) Post-discharge follow-up; Translations: [Encounter for follow-up examination after completed treatment for conditions other than malignant neoplasm] 10-16-2023 Episodic Other aftercare (2 sources) Encounter for follow-up examination after completed treatment for conditions other than malignant neoplasm; Translations: [Other follow-up examination] 10-16-2023 Episodic Other aftercare (2 sources) [facility] (current) use of systemic steroids; Translations: [[facility] (current) use of systemic steroids] Onset: 01-28-2024 Episodic Other connective tissue disease (8 sources) Neurological symptom; Translations: [Unspecified symptoms and signs involving the nervous system] Onset: 09-23-2023 09-23-2023 Episodic Other connective tissue disease (1 source) Unspecified symptoms and signs involving the nervous system; Translations: [Unspecified symptoms and signs involving the nervous system] Onset: 09-23-2023 Episodic Other connective tissue disease (1 source) Pain in lower limb Onset: 02-05-2024 Episodic Otitis media and related conditions (6 sources) Dysfunction of eustachian tube; Translations: [Unspecified [...] Systemic lupus erythematosus and connective tissue disorders (17 sources) Temporal arteritis; Translations: [Other giant cell arteritis] Onset: 09-23-2023 09-26-2023 Chronic Unclassified (2 sources) Thrombocytosis, unspecified; Translations: [Thrombocytosis, unspecified] Onset: 09-23-2023 Unclassified (1 source) CVA symptoms Onset: 09-23-2023 Past or Other Problems Problem Classification Problem Date Documented Da te Episodic/Chronic Deficiency and other anemia (1 source) Anemia, unspecified; Translations: [Anemia, unspecified] Onset: 11-06-2023 Episodic E Codes: Fall (1 source) Fall on [...] Range Facility Basophils Auto (Bld) [#/Vol] on 03-05-2024 Basophils (Bld) [#/Vol] 0.0 10 3/uL 0.0-0.1 [facility] Basophils/100 WBC Auto (Bld) on 03-05-2024 Basophils/100 WBC (Bld) 0.6 % 0.2-2.0 F [facility] Eosinophils/100 WBC Auto (Bl d)on 03-05-2024 Eosinophils/100 WBC (Bld) 1.7 % 0.9-7.0 [facility] Erythrocyte distribution wid th Auto (RBC) [Ratio]on 03-05-2024 Erythrocyte distribution width (RBC) [Ratio] 13.7 % 11.0-15.0 [facility] Hematocrit Auto (Bld) [Volum e fraction]on 03-05-2024 Hematocrit (Bld) [Volume fraction] 37.7 % 36.0-48.0 [facility] Hemoglobin [Mass/volume] in Bloodon 03-05-2024 Hemoglobin (Bld) [Mass/Vol] 12.2 g/dL 12.0-16.0 [facility] Iron binding capacity [Mass/ volume] in Serum or Plasmaon 03-05-2024 Iron binding capacity [Mass/Vol] 231.0 ug/dL Low 250.0-450.0 [facility] Iron saturation [Mass Fracti on] in Serum or Plasmaon 03-05-2024 Iron saturation [Mass fraction] 44.6 % [facility] Laboratory - Chemistry and C hemistry - challengeon 03-05-2024 Ferritin [Mass/Vol] 234.0 ng/mL 8.0-252.0 [facility] Iron [Mass/Vol] 103.0 ug/dL 50.0-170.0 [facility] Laboratory - Hematology and Cell countson 03-05-2024 Immature granulocytes/100 WBC (Bld) 0.3 % 0.0-0.5 [facility] Leukocytes [#/volume] correc tyrone for nucleated erythrocytes in Blood by Automated counon 03-05-2024 WBC corrected for nucl RBC Auto (Bld) [#/Vol] 6.9 10 3/uL 4.0-11.0 [facility] Lymphocytes Auto (Bld) [#/Vo l]on 03-05-2024 Lymphocytes (Bld) [#/Vol] 3.8 10 3/uL 1.2-3.8 [facility] Lymphocytes/100 WBC Auto (Bl d)on 03-05-2024 Lymphocytes/100 WBC (Bld) 54.9 % 20.5-60.0 [facility] MCH Auto (RBC) [Entitic mass ]on 03-05-2024 MCH (RBC) [Entitic mass] 31.4 pg 26.7-34.0 [facility] MCHC Auto (RBC) [Mass/Vol]on 03-05-2024 MCHC (RBC) [Mass/Vol] 32.4 g/dL 29.9-35.2 [facility] MCV Auto (RBC) [Entitic vol] on 03-05-2024 MCV (RBC) [Entitic vol] 96.9 fL 81.0-99.0 [facility] Monocytes Auto (Bld) [#/Vol] on 03-05-2024 Monocytes (Bld) [#/Vol] 0.6 10 3/uL 0.3-0.8 [facility] Monocytes/100 WBC Auto (Bld) on 03-05-2024 Monocytes/100 WBC (Bld) 8.7 % 1.7-12.0 [facility] Neutrophils Auto (Bld) [#/Vo l]on 03-05-2024 Neutrophils (Bld) [#/Vol] 2.3 10 3/uL 1.4-6.5 [facility] Neutrophils/100 WBC Auto (Bl d)on 03-05-2024 Neutrophils/100 WBC (Bld) 33.8 % Low 43.0-75.0 [facility] No Panel Informationon 03-05 Eosinophils # (Auto) 0.1 10 3/uL 0.0-0.7 [facility] Immature Granulocyte # (Auto) 0.02 10 3/uL 0.00-0.03 [facility] Platelet mean volume Auto (B ld) [Entitic vol]on 03-05-2024 Platelet mean volume (Bld) [Entitic vol] 8.7 fL Low 9.5-13.5 [facility] Platelets Auto (Bld) [#/Vol] on 03-05-2024 Platelets (Bld) [#/Vol] 289 10 3/uL 150-450 [facility] RBC Auto (Bld) [#/Vol]on RBC (Bld) [#/Vol] 3.89 10 6/uL Low 4.20-5.40 [facility] Follow-Upon 01-28-2024 Follow-Up [id number] Carlyle David 1945 F Date Provider Department Center 01/28/2024 [id number] JASSO I [facility] No family history on file Level of Service:60684 [place] OFFICE/OUTPATIENT ESTABLISHED MOD MDM 30 MIN Reason for Visit and Comments: Follow-up [[id number]] - [facility]. Neck pain with cramping Normal [facility] Basophils Auto (Bld) [#/Vol] on 12-29-2023 Basophils (Bld) [#/Vol] 0.0 10 3/uL 0.0-0.1 [facility] Basophils/100 WBC Auto (Bld) on 12-29-2023 Basophils/100 WBC (Bld) 0.3 % 0.2-2.0 [facility] Eosinophils/100 WBC Auto (Bl d)on 12-29-2023 Eosinophils/100 WBC (Bld) 0.6 % 0.9-7.0 [facility] Erythrocyte distribution wid th Auto (RBC) [Ratio]on 12-29-2023 Erythrocyte distribution width (RBC) [Ratio] 14.8 % 11.0-15.0 [facility] Hematocrit Auto (Bld) [Volum e fraction]on 12-29-2023 Hematocrit (Bld) [Volume fraction] 39.8 % 36.0-48.0 [facility] Hemoglobin [Mass/volume] in Bloodon 12-29-2023 Hemoglobin (Bld) [Mass/Vol] 12.6 g/dL 12.0-16.0 [facility] Iron binding capacity [Mass/ volume] in Serum or Plasmaon 12-29-2023 Iron binding capacity [Mass/Vol] 241.0 ug/dL 250.0-450.0 [facility] Iron saturation [Mass Fracti on] in Serum or Plasmaon 12-29-2023 Iron saturation [Mass fraction] 51.5 % [facility] Laboratory - Chemistry and C hemistry - challengeon 12-29-2023 Iron [Mass/Vol] 124.0 ug/dL 50.0-170.0 [facility] Laboratory - Hematology and Cell countson 12-29-2023 ESR (Bld) [Velocity] 5 mm/h <=30 [facility] Immature granulocytes/100 WBC (Bld) 0.8 % 0.0-0.5 [facility] Leukocytes [#/volume] correc tyrone for nucleated erythrocytes in Blood by Automated counon 12-29-2023 WBC corrected for nucl RBC Auto (Bld) [#/Vol] 8.9 10 3/uL 4.0-11.0 [facility] Lymphocytes Auto (Bld) [#/Vo l]on 12-29-2023 Lymphocytes (Bld) [#/Vol] 4.4 10 3/uL 1.2-3.8 [facility] Lymphocytes/100 WBC Auto (Bl d)on 12-29-2023 Lymphocytes/100 WBC (Bld) 49.7 % 20.5-60.0 [facility] MCH Auto (RBC) [Entitic mass ]on 12-29-2023 MCH (RBC) [Entitic mass] 31.0 pg 26.7-34.0 [facility] MCHC Auto (RBC) [Mass/Vol]on 12-29-2023 MCHC (RBC) [Mass/Vol] 31.7 g/dL 29.9-35.2 [facility] MCV Auto (RBC) [Entitic vol] on 12-29-2023 MCV (RBC) [Entitic vol] 98.0 fL 81.0-99.0 [facility] Monocytes Auto (Bld) [#/Vol] on 12-29-2023 Monocytes (Bld) [#/Vol] 0.7 10 3/uL 0.3-0.8 [facility] Monocytes/100 WBC Auto (Bld) on 12-29-2023 Monocytes/100 WBC (Bld) 7.3 % 1.7-12.0 [facility] Neutrophils Auto (Bld) [#/Vo l]on 12-29-2023 Neutrophils (Bld) [#/Vol] 3.7 10 3/uL 1.4-6.5 [facility] Neutrophils/100 WBC Auto (Bl d)on 12-29-2023 Neutrophils/100 WBC (Bld) 41.3 % 43.0-75.0 [facility] No Panel Informationon 12-28 Eosinophils # (Auto) 0.1 10 3/uL 0.0-0.7 [facility] Immature Granulocyte # (Auto) 0.07 10 3/uL 0.00-0.03 [facility] Platelet mean volume Auto (B ld) [Entitic vol]on 12-29-2023 Platelet mean volume (Bld) [Entitic vol] 8.3 fL 9.5-13.5 [facility] Platelets Auto (Bld) [#/Vol] on 12-29-2023 Platelets (Bld) [#/Vol] 262 10 3/uL 150-450 [facility] RBC Auto (Bld) [#/Vol]on RBC (Bld) [#/Vol] 4.06 10 6/uL 4.20-5.40 [facility] 36on 12-10-2023 36 Please review notes from [facility]. Patient should be contacting [facility] for assistance on how to proceed. Normal [facility] 36 Spoke with daughter, pt will have to pay $700 for the Actemra through insurance and does not qualify for PAP due to income, would like to know what you want to do. [facility] Telephoneon 12-10-2023 Telephone [phone] Carlyle David julia Pierson 1945 F Provider Department Center 12/10/2023 JT CROOK I [facility] No family history on file [facility] 36on 12-04-2023 36 Spoke with patient's daughter and they will orange picking supervisor tomorrow . [facility] 36 Yes, I have 2 availa ble samples of Actemra. I will contact patient and inform to orange picking supervisor at [facility]. [facility] 36 Do we have Actemra samples Lindsay for Jose. [facility] Follow-Upon 11-26-2023 Follow-Up [id number] Carlyle David Kenna 1945 Provider Department [facility] No family history on file Level of Service:95262 [place] OFFICE/OUTPATIENT ESTABLISHED MOD MDM 30 MIN Reason for Visit and Comments: Follow-up [[id number]] - [facility] Basophils Auto (Bld) [#/Vol] on 10-30-2023 Basophils (Bld) [#/Vol] 0.0 10 3/uL 0.0-0.1 [facility] Basophils/100 WBC Auto (Bld) on 10-30-2023 Basophils/100 WBC (Bld) 0.2 % 0.2-2.0 [facility] Blood Mycobacterium tubercul osis tuberculin stimulated gamma interferon detectionon 10-30-2023 M. tuberculosis tuberculin stim IFN-g Ql (Bld) Comment . [facility] Comment on above: QuantiFERON-TB Gold Plus is [...] stim IFN-g Ql (Bld) 0.03 [IU]/mL . [facility] Blood mitogen stimulated hussain ma interferon measurement (units/volume)on 10-30-2023 Mitogen stimulated gamma interferon Qn (Bld) >10.00 [IU]/mL . [facility] Cholesterol in LDL Calc [Mas s/Vol]on 10-30-2023 Cholesterol in LDL [Mass/Vol] 161.0 mg/dL [facility] Comment on above: <100 mg/dl [id number] 0-129 mg/dl NEAR OR ABOVE [id number] mg/dl BORDERLINE [id number] mg/dl HIGH>190 mg/dl VERY HIGH Cholesterol in VLDL Calc [Ma ss/Vol]on 10-30-2023 Cholesterol in VLDL [Mass/Vol] 12.4 mg/dL [facility] Eosinophils/100 WBC Auto (Bl d)on 10-30-2023 Eosinophils/100 WBC (Bld) 0.4 % 0.9-7.0 [facility] Erythrocyte distribution wid th Auto (RBC) [Ratio]on 10-30-2023 Erythrocyte distribution width (RBC) [Ratio] 19.2 % 11.0-15.0 [facility] Estimated glomerular filtrat ion rate (GFR) non- Americanon 10-30-2023 GFR/1.73 sq M.predicted among non-blacks MDRD (S/P/Bld) [Vol rate/Area] mL/min/{1.73_m2} >=60 [facility] Globulin Calc (S) [Mass/Vol] on 10-30-2023 Globulin (S) [Mass/Vol] 3.4 g/dL F [facility] Hematocrit Auto (Bld) [Volum e fraction]on 10-30-2023 Hematocrit (Bld) [Volume fraction] 34.9 % 36.0-48.0 [facility] Hemoglobin [Mass/volume] in Bloodon 10-30-2023 Hemoglobin (Bld) [Mass/Vol] 10.8 g/dL 12.0-16.0 [facility] Hepatitis C virus IgG Ab [Pr esence] in Serum or Plasma by Immunoassayon 10-30-2023 HCV IgG IA Ql Non-Reactive Non Reactive [facility] Comment on above: HCV antibody alone d oes not differentiate betweenpreviously resolved infection and active infection.Equivocal and Reactive HCV antibody results should befollowed up with an HCV RNA test to support the diagnosisof active HCV infection. Laboratory - Chemistry and C hemistry - challengeon 10-30-2023 Albumin [Mass/Vol] 2.9 g/dL 3.4-5.0 [facility] ALP [Catalytic activity/Vol] 60 U/L 46-116 [facility] ALT [Catalytic activity/Vol] 24 U/L 14-59 [facility] AST [Catalytic activity/Vol] 10 U/L 15-37 [facility] Bilirubin [Mass/Vol] 0.4 mg/dL 0.2-1.0 [facility] Calcium [Mass/Vol] 8.3 mg/dL 8.5-10.1 [facility] Chloride [Moles/Vol] 102 mmol/L 98-107 [facility] Cholesterol [Mass/Vol] 308 mg/dL <=200 [facility] Cholesterol in HDL [Mass/Vol] 135 mg/dL 40-60 [facility] Comment on above: > or =60 mg/dl - LOW CARDIOVASCULAR RISK<40 mg/dl - HIGH CARDIOVASCULAR RISK CO2 [Moles/Vol] 30.3 mmol/L 21.0-32.0 [facility] Creatinine [Mass/Vol] 0.78 mg/dL 0.55-1.02 [facility] GFR/1.73 sq M.predicted MDRD (S/P/Bld) [Vol rate/Area] mL/min/{1.73_m2} >=60 [facility] Glucose [Mass/Vol] 71 mg/dL 74-106 [facility] Potassium [Moles/Vol] 4.1 mmol/L 3.5-5.1 [facility] Protein [Mass/Vol] 6.3 g/dL 6.4-8.2 [facility] Sodium [Moles/Vol] 140 mmol/L 136-145 [facility] Triglyceride [Mass/Vol] 62 mg/dL <=150 [facility] Urea nitrogen [Mass/Vol] 23.0 mg/dL 7.0-18.0 [facility] Urea nitrogen/Creatinine [Mass ratio] 29.5 mg/mg [facility] Laboratory - Hematology and Cell countson 10-30-2023 ESR (Bld) [Velocity] 21 mm/h <=30 [facility] Immature granulocytes/100 WBC (Bld) 1.8 % 0.0-0.5 [facility] Leukocytes [#/volume] correc tyrone for nucleated erythrocytes in Blood by Automated counon 10-30-2023 WBC corrected for nucl RBC Auto (Bld) [#/Vol] 11.4 10 3/uL 4.0-11.0 [facility] Lymphocytes Auto (Bld) [#/Vo l]on 10-30-2023 Lymphocytes (Bld) [#/Vol] 3.9 10 3/uL 1.2-3.8 [facility] Lymphocytes/100 WBC Auto (Bl d)on 10-30-2023 Lymphocytes/100 WBC (Bld) 34.2 % 20.5-60.0 [facility] MCH Auto (RBC) [Entitic mass ]on 10-30-2023 MCH (RBC) [Entitic mass] 29.4 pg 26.7-34.0 [facility] MCHC Auto (RBC) [Mass/Vol]on 10-30-2023 MCHC (RBC) [Mass/Vol] 30.9 g/dL 29.9-35.2 [facility] MCV Auto (RBC) [Entitic vol] on 10-30-2023 MCV (RBC) [Entitic vol] 95.1 fL 81.0-99.0 [facility] Monocytes Auto (Bld) [#/Vol] on 10-30-2023 Monocytes (Bld) [#/Vol] 0.8 10 3/uL 0.3-0.8 [facility] Monocytes/100 WBC Auto (Bld) on 10-30-2023 Monocytes/100 WBC (Bld) 7.3 % 1.7-12.0 [facility] Mycobacterium tuberculosis s timulated gamma interferon [Interpretation] in Blood Qualon 10-30-2023 M. tuberculosis stim IFN-g Ql (Bld) [Interp] Negative Negative [facility] Comment on above: No response to M tub erculosis antigens detected.Infection with M tuberculosis is unlikely, but high riskindividuals should be considered for additional testing(ATS/IDSA/CDC Clinical Practice Guidelines, 2017). Thereference range is an Antigen minus Nil result of <0.35IU/mL.Chemiluminescence immunoassay methodologyPerformed at: [facility] [id number] Director: Bobby Mckeon PhD, Phone: [phone] Neutrophils Auto (Bld) [#/Vo l]on 10-30-2023 Neutrophils (Bld) [#/Vol] 6.4 10 3/uL 1.4-6.5 [facility] Neutrophils/100 WBC Auto (Bl d)on 10-30-2023 Neutrophils/100 WBC (Bld) 56.1 % 43.0-75.0 [facility] No Panel Informationon 10-29 Eosinophils # (Auto) 0.0 10 3/uL 0.0-0.7 [facility] Hepatitis B Core Total Antibody Negative Negative [facility] Comment on above: Performed at: - [facility] [address] [id number] Director: Bobby Mckeon PhD, Phone: [phone] Immature Granulocyte # (Auto) 0.20 10 3/uL 0.00-0.03 [facility] Miscellaneous Test COMMENT . [facility] Comment on above: Test Ordered: [id number] Hep Be AgHep Be Ag Negative CB Reference Range: NegativePerformed at: [facility] [id number] Director: Bobby Mckeon PhD, Phone: [phone] TB Test (QFT) Incubation See comment . [facility] Comment on above: Incubation performed . Reference Range: . Platelet mean volume Auto (B ld) [Entitic vol]on 10-30-2023 Platelet mean volume (Bld) [Entitic vol] 8.2 fL 9.5-13.5 [facility] Platelets Auto (Bld) [#/Vol] on 10-30-2023 Platelets (Bld) [#/Vol] 287 10 3/uL 150-450 [facility] RBC Auto (Bld) [#/Vol]on RBC (Bld) [#/Vol] 3.67 10 6/uL 4.20-5.40 [facility] Serum or plasma albumin/glob ulin mass ratioon 10-30-2023 Albumin/Globulin [Mass ratio] 0.9 {ratio} [facility] Serum or plasma anion gap de terminationon 10-30-2023 Anion gap [Moles/Vol] 11.8 mmol/L [facility] Serum or plasma total choles terol/high density lipoprotein (HDL) cholesterol mass artie 10-30-2023 Cholesterol.total/Choles terol in HDL [Mass ratio] 2.3 {ratio} [facility] Comment on above: 3.3 - 4.4 LOW RISK4. 4 - 7.1 AVERAGE RISK7.1 - 11.0 MODERATE RISK>11.0 HIGH RISK Whole blood measurement of M ycobacterium tuberculosis stimulated gamma interferon relon 10-30-2023 M. tuberculosis stim IFN-g by CD4+ CD8+ T-cells corrected for background Qn (Bld) 0.03 [IU]/mL . [facility] 36on 10-22-2023 36 Pt wondering if she should continue this medication, was prescribed out of the hospital. Please advise [facility] Documentationon 10-21-2023 Documentation [id number] Carlyle David 1945 F Date Provider Department Center 10/21/2023 1067-NARESH BARRETT [facility] No family history on file Reason for Visit and Comments: Specialty Pharmacy Note: [facility] [Other] [facility] Follow-Upon 10-21-2023 Follow-Up [id number] Carlyle David 1945 F Date Provider Department Center 10/21/2023 215-JT JASSO I [facility] No family history on file Level of Service:06793 [place] OFFICE/OUTPATIENT ESTABLISHED MOD MDM 30 MIN Reason for Visit and Comments: Follow-up [275285] - [facility] Telephoneon 10-01-2023 Telephone [phone] Carlyle David 1945 F Date Provider Department Center 10/01/2023 LINDSAY JACKSON [facility] No family history on file Normal [facility] BASIC METABOLIC PANLon 09-26 Anion gap [Moles/Vol] 8 mmol/L Normal 5-15 [facility] Comment on above: Performed By: #### C BCA, CMP, 1987-12, FEPR, 227-4, 2284-8, 81182-4, 213-9, 26157-9, 73245-8, 5130-0, 42822-4, 05764-0, 41630-3, 3357-1, 8092-9, 25336-7, 79767-3, 35770-9, 06359-2, 46197-2 #### [facility] ([id number]) [address], [address] [place] [address] Calcium [Mass/Vol] 7.9 mg/dL Low 8.5-10.5 [facility] Comment on above: Performed By: #### C BCA, CMP, 1987-12, FEPR, 2275-4, 4-8, 86965-1, 2131-9, 71654-6, 89650-5, 5130-0, 99634-4, 17522-5, 56484-8, 3357-1, 8092-9, 00320-3, 09116-5, 07378-6, 59818-7, 21649-6 #### [facility] ([id number]) [address], [address] [place] [address] Chloride [Moles/Vol] 103 mmol/L Normal 98-109 [facility] Comment on above: Performed By: #### C BCA, CMP, 1987-12, FEPR, 2276-4, 2284-8, 21889-2, 2132-9, 57326-8, 11453-2, 5130-0, 38041-6, 66025-8, 03011-4, 3357-1, 8092-9, 07503-5, 88136-1, 74109-7, 47467-9, 50641-2 #### [facility] ([id number]) [address] [facility], [address] [address] CO2 [Moles/Vol] 30 mmol/L Normal 22-32 [facility] Comment on above: Performed By: #### C SHARATH, KELVIN, 1987-12, FEPR, 2275-11, 8, 98327-1, 2132-9, 29012-6, 99045-6, 5130-0, 25763-0, 11521-9, 41287-1, 3357-1, 8092-9, 12095-6, 51487-2, 93965-7, 16789-0, 62427-5 #### [facility] ([id number]) [address], [address] [address] Creatinine [Mass/Vol] 0.65 mg/dL Normal 0.40-1.00 [facility] Comment on above: Result Comment: METH OD TRACEABLE TO IDMS STANDARD Performed By: #### C KELVIN EARLY, 1987-12, FEPR, 2275-11, 8, 35364-5, 2132-9, 85475-9, 74018-7, 5130-0, 02365-8, 96855-7, 67442-1, 3357-1, 8092-9, 00222-0, 52437-0, 79508-5, 19319-7, 34815-2 #### [facility] ([id number]) [address] [facility], [address] [address] eGFR (CKD-EPI) NON-RACE DEPENDENT >90 Normal >59 [facility] Comment on above: Result Comment: Reported eGFR is based on the CKD-EPI 2020 equation that does not use a race coefficient. Performed By: #### C SHARATH, CMP, 1987-12, FEPR, 2276-4, 2284-8, 36588-8, 2132-9, 40535-1, 23874-9, 5130-0, 15977-5, 50756-1, 50770-6, 3357-1, 8092-9, 60534-8, 34335-4, 15910-7, 43956-9, 08522-1 #### [facility] ([id number]) [address], [address] [place] [address] Glucose [Mass/Vol] 79 mg/dL Normal 65-99 [facility] Comment on above: Performed By: #### C BCA, CMP, 1987-12, FEPR, 2275-4, 2284-8, 82011-9, 2132-9, 42521-6, 72595-9, 5130-0, 37563-2, 33175-2, 06837-7, 3357-1, 8092-9, 58355-0, 14789-0, 57713-7, 68095-7, 60688-1 #### [facility] ([id number]) [address], [address] [place] [address] Potassium [Moles/Vol] 3.9 mmol/L Normal 3.5-5.0 [facility] Comment on above: Performed By: #### C BCA, CMP, 1987-12, FEPR, 2275-4, 2283-8, 73154-8, 213-9, 60659-1, 12051-2, 5130-0, 72297-9, 88078-4, 67659-3, 3357-1, 8092-9, 30094-5, 40163-0, 35351-0, 55090-8, 19775-3 #### [facility] ([id number]) [address], [address] [place] [address] Sodium [Moles/Vol] 141 mmol/L Normal 134-146 [facility] Comment on above: Performed By: #### C BCA, CMP, 1987-12, FEPR, 2276-4, 2284-8, 65854-9, 2132-9, 85817-7, 46169-2, 5130-0, 68545-4, 50073-6, 23268-7, 3357-1, 8092-9, 48367-3, 17679-3, 50818-3, 12393-0, 94547-7 #### [facility] ([id number]) [address] [place] [address], [address] [place] [address] Urea nitrogen [Mass/Vol] 26 mg/dL Normal 5-27 [facility] Comment on above: Performed By: #### C BCA, CMP, 1987-12, FEPR, 2276-4, 2284-8, 77468-2, 2132-9, 29815-2, 55182-3, 5130-0, 72510-9, 53136-2, 73417-3, 3357-1, 8092-9, 36515-3, 45102-7, 36414-3, 12653-4, 95304-3 #### [facility] ([id number]) [address] [place] [address], [address] [place] [address] Basic Metabolic Panelon - Anion gap [Moles/Vol] 8 mmol/L 5 - 15 mmol/L [facility] Calcium [Mass/Vol] 7.9 mg/dL Low 8.5 - 10. 5 mg/dL [facility] Chloride [Moles/Vol] 103 mmol/L 98 - 10 9 mmol/L [facility] CO2 [Moles/Vol] 30 mmol/L 22 - 32 mmol/L [facility] Creatinine [Mass/Vol] 0.65 mg/dL 0.40 - 1.00 mg/dL [facility] Comment on above: METHOD TRACEABLE TO IDMS STANDARD eGFR (CKD-EPI)non-race dependent - PINF [facility] Comment on above: Reported eGFR is based on the CKD-EPI 2020 equation that does not use a race coefficient. Glucose [Mass/Vol] 79 mg/dL 65 - 99 mg/dL [facility] Interpretation and review of laboratory results Abnormal [facility] Potassium [Moles/Vol] 3.9 mmol/L 3.5 - 5.0 mmol/L [facility] Sodium [Moles/Vol] 141 mmol/L 134 - 146 mmol/L [facility] Urea nitrogen [Mass/Vol] 26 mg/dL 5 - 27 mg/dL [facility] CBC AND AUTO DIFFon 09-26-19 24 ABSOLUTE BASOPHIL 0.1 X10E9/L Normal 0.0-0.2 [facility] Comment on above: Performed By: #### C SHARATH, CMP, 1987-12, FEPR, 2276-4, 2284-8, 73247-1, 2131-9, 57053-3, 48627-9, 5130-0, 32493-3, 70124-0, 85619-6, 3357-1, 8092-9, 65135-2, 80308-3, 42461-2, 47194-9, 83392-6 #### [facility] ([id number]) [address], [address] [place] [address] ABSOLUTE NEUTROPHIL 7.1 X10E9/L High 1.5-6.6 [facility] Comment on above: Performed By: #### C SHARATH, KELVIN, 1987-12, FEPR, 6-4, 2284-8, 25305-4, 2131-9, 84009-8, 49881-3, 5130-0, 07184-0, 05862-8, 68966-9, 3357-1, 8092-9, 02794-4, 77450-4, 52690-5, 40973-6, 11097-1 #### [facility] ([id number]) [address], [address] [place] [address] Basophils/100 WBC (Bld) 0.8 % Normal [facility] Comment on above: Performed By: #### C SHARATH, CMP, 1987-12, FEPR, 2276-4, 2284-8, 49103-3, 2132-9, 54671-1, 73981-2, 5130-0, 85409-9, 23077-3, 23422-0, 3357-1, 8092-9, 90235-1, 19626-9, 36735-4, 85614-3, 22922-7 #### [facility] ([id number]) [address], [address] [place] [address] Eosinophils (Bld) [#/Vol] 0.0 10*3/uL Normal 0.0-0.4 [facility] Comment on above: Performed By: #### C SHARATH, CMP, 1987-12, FEPR, 2275-4, 2284-8, 00447-3, 2132-9, 34795-6, 51491-2, 5130-0, 78076-5, 31534-6, 87362-7, 3357-1, 8092-9, 83620-3, 20038-8, 36398-5, 78796-2, 95921-5 #### [facility] ([id number]) [address], [address] [place] [address] Eosinophils/100 WBC (Bld) 0.0 % Normal [facility] Comment on above: Performed By: #### C SHARATH, CMP, 1987-12, FEPR, 2275-4, 4-8, 06342-2, 2132-9, 05120-4, 29588-6, 5130-0, 94355-5, 81664-7, 31875-7, 3357-1, 8092-9, 86770-5, 90836-3, 77700-0, 62380-3, 50148-6 #### [facility] ([id number]) [address], [address] [place] [address] Erythrocyte distribution width (RBC) [Ratio] 14.4 % Normal 11.5-15.0 [facility] Comment on above: Performed By: #### C BCA, CMP, 1988-5, FEPR, 2276-4, 2284-8, 45443-6, 2132-9, 93136-2, 01029-7, 5130-0, 71073-2, 47383-3, 39276-9, 3357-1, 8092-9, 80808-1, 56561-3, 96233-5, 20840-4, 06390-5 #### [facility] ([id number]) [address], [address] [place] [address] Hematocrit (Bld) [Volume fraction] 24.8 % Low 35-47 [facility] Comment on above: Performed By: #### C BCA, CMP, 1987-12, FEPR, 2276-4, 2284-8, 74084-9, 2132-9, 96770-2, 42895-9, 5130-0, 80916-1, 43977-0, 42815-3, 3357-1, 8092-9, 03613-5, 69111-9, 47940-7, 41952-4, 47828-2 #### [facility] ([id number]) [address], [address] [place] [address] Hemoglobin (Bld) [Mass/Vol] 8.2 g/dL Low 11.7-15.5 [facility] Comment on above: Performed By: #### C BCA, CMP, 1987-12, FEPR, 2276-4, 2284-8, 78797-8, 2132-9, 66041-6, 84679-8, 5130-0, 55657-0, 18166-3, 39159-6, 3357-1, 8092-9, 30260-5, 18495-1, 46850-4, 52292-4, 26771-3 #### [facility] ([id number]) [address], [address] [place] [address] Lymphocytes (Bld) [#/Vol] 2.4 10*3/uL Normal 1.0-3.5 [facility] Comment on above: Performed By: #### C BCA, CMP, 1987-12, FEPR, 2276-4, 2284-8, 29464-2, 2132-9, 37021-3, 89110-2, 5130-0, 37593-2, 28841-8, 47025-2, 3357-1, 8092-9, 12431-9, 87310-5, 91158-1, 40415-5, 93795-0 #### [facility] ([id number]) [address], [address] [place] [address] Lymphocytes/100 WBC (Bld) 22.6 % Normal [facility] Comment on above: Performed By: #### C BCA, CMP, 1987-12, FEPR, 2276-4, 2284-8, 07121-4, 2132-9, 24199-8, 90814-8, 5130-0, 15123-6, 49091-9, 36238-6, 3357-1, 8092-9, 25578-6, 31495-3, 64173-9, 97992-8, 96440-2 #### [facility] ([id number]) [address], [address] [place] [address] MCH (RBC) [Entitic mass] 28.5 pg Normal 27-34 [facility] Comment on above: Performed By: #### C BCA, CMP, 1987-12, FEPR, 2276-4, 2284-8, 14380-9, 2132-9, 74554-5, 90115-8, 5130-0, 88094-9, 42426-3, 25448-9, 3357-1, 8092-9, 80534-6, 52736-5, 33699-8, 96445-0, 50885-9 #### [facility] ([id number]) [address], [address] [place] [address] MCHC (RBC) [Mass/Vol] 33.1 g/dL Normal 32-36 [facility] Comment on above: Performed By: #### C BCA, CMP, 1987-12, FEPR, 2276-4, 2284-8, 13843-5, 2132-9, 32288-8, 19136-3, 5130-0, 94586-2, 83975-8, 97530-2, 3357-1, 8092-9, 76577-1, 13748-4, 80497-3, 58191-4, 11417-4 #### [facility] ([id number]) [address], [address] [place] [address] MCV (RBC) [Entitic vol] 86 fL Normal 80-100 P [facility] Comment on above: Performed By: #### C BCA, CMP, 1987-12, FEPR, 2276-4, 2284-8, 03211-7, 2132-9, 13715-3, 25869-4, 5130-0, 46488-5, 87169-9, 73236-3, 3357-1, 8092-9, 29694-5, 57945-2, 62856-6, 44838-6, 61569-9 #### [facility] ([id number]) [address], [address] [place] [address] Monocytes (Bld) [#/Vol] 1.0 10*3/uL High 0-0.9 [facility] Comment on above: Performed By: #### C BCA, CMP, 1987-12, FEPR, 2276-4, 2284-8, 05133-5, 2132-9, 69115-7, 85435-9, 5130-0, 81887-1, 05747-7, 00071-7, 3357-1, 8092-9, 80718-9, 68336-7, 50279-5, 91602-8, 99725-0 #### [facility] ([id number]) [address], [address] [place] [address] Monocytes/100 WBC (Bld) 9.0 % Normal [facility] Comment on above: Performed By: #### C BCA, CMP, 1987-12, FEPR, 2276-4, 2284-8, 52651-6, 2132-9, 95928-5, 65860-1, 5130-0, 68257-5, 41339-2, 67062-3, 3357-1, 8092-9, 26923-4, 67194-1, 25356-8, 01960-2, 52126-2 #### [facility] ([id number]) [address], [address] [place] [address] Neutrophils/100 WBC (Bld) 67.6 % Normal [facility] Comment on above: Performed By: #### C BCA, CMP, 1987-12, FEPR, 2276-4, 2284-8, 98977-3, 2132-9, 40458-4, 47893-4, 5130-0, 75269-3, 31180-9, 79868-6, 3357-1, 8092-9, 35501-9, 61284-8, 02427-2, 52237-4, 78959-5 #### [facility] ([id number]) [address], [address] [place] [address] Platelet mean volume (Bld) [Entitic vol] 6.4 fL Low 7-12 [facility] Comment on above: Performed By: #### C BCA, CMP, 1987-12, FEPR, 2276-4, 2284-8, 24510-2, 2132-9, 79142-1, 65254-4, 5130-0, 76909-3, 33321-6, 48339-5, 3357-1, 8092-9, 00427-9, 93230-2, 19749-3, 87523-9, 56889-2 #### [facility] ([id number]) [address], [address] [place] [address] Platelets (Bld) [#/Vol] 686 10*3/uL High 150-450 [facility] Comment on above: Performed By: #### C BCA, CMP, 1987-12, FEPR, 2276-4, 2284-8, 50544-6, 2132-9, 13597-6, 89126-1, 5130-0, 30467-6, 80415-0, 63101-3, 3357-1, 8092-9, 80053-7, 67411-3, 98158-3, 87414-7, 59457-2 #### [facility] ([id number]) [address] [facility], [address] [place] [address] RBC COUNT 2.88 X10E12/L Low 3.80-5.20 [facility] Comment on above: Performed By: #### C BCA, CMP, 1987-12, FEPR, 2275-4, 2284-8, 21374-3, 2132-9, 09796-3, 76121-2, 5130-0, 21773-5, 51468-3, 87144-9, 3357-1, 8092-9, 98800-4, 67513-4, 95595-6, 97993-0, 95527-6 #### [facility] ([id number]) [address], [address] [place] [address] WBC (Bld) [#/Vol] 10.5 10*3/uL Normal 4.0-11.0 [facility] Comment on above: Performed By: #### C BCA, CMP, 1987-12, FEPR, 227-4, 2284-8, 22795-0, 2132-9, 65996-2, 01959-3, 5130-0, 89016-3, 42050-7, 08711-9, 3357-1, 8092-9, 43340-6, 75935-7, 03106-2, 73945-6, 29603-1 #### [facility] ([id number]) [address] [facility], [address] [place] [address] CBC auto differentialon Basophils (Bld) [#/Vol] 0.1 10*3/uL [facility] Basophils/100 WBC (Bld) 0.8 % [facility] Eosinophils (Bld) [#/Vol] 0.0 10*3/uL [facility] Eosinophils/100 WBC (Bld) 0.0 % [facility] Erythrocyte distribution width (RBC) [Ratio] 14.4 % 11.5 - 15.0 % [facility] Hematocrit (Bld) [Volume fraction] 24.8 % Low 35 - 47 % [facility] Hemoglobin (Bld) [Mass/Vol] 8.2 g/dL Low 11.7 - 15.5 g/dL [facility] Interpretation and review of laboratory results Abnormal [facility] Lymphocytes (Bld) [#/Vol] 2.4 10*3/uL [facility] Lymphocytes/100 WBC (Bld) 22.6 % [facility] MCH (RBC) [Entitic mass] 28.5 pg 27 - 34 pg [facility] MCHC (RBC) [Mass/Vol] 33.1 g/dL 32 - 3 6 g/dL [facility] MCV (RBC) [Entitic vol] 86 fL 80 - 100 fL [facility] Monocytes (Bld) [#/Vol] 1.0 10*3/uL High [facility] Monocytes/100 WBC (Bld) 9.0 % [facility] Neutrophils (Bld) [#/Vol] 7.1 10*3/uL High [facility] Neutrophils/100 WBC (Bld) 67.6 % [facility] Platelet mean volume (Bld) [Entitic vol] 6.4 fL Low 7 - 12 fL [facility] Platelets (Bld) [#/Vol] 686 10*3/uL High [facility] RBC (Bld) [#/Vol] 2.88 10*6/uL Low [facility] WBC corrected for nucl RBC Auto (Bld) [#/Vol] 10.5 [facility] Clinical Pathology Blood Sme ar Review Clinicalon 09-26-2023 Pathologist review Pathologist comment (Bld) [Interp] NOTE [facility] Comment on above: [facility] [employer] [facility] [address] [place] [address] Clinical Pathology Report Patient Name:JOSE DAVID:1945 (Age: 78)Gender:FTaken:09/23/2023eported:09/26/2023hysician(s):Olga Pan M.D. ([phone])Copy To: Rec. #:[id number]: #[id number] Final Pathologic Diagnosis Peripheral blood smear: Neutrophilic [...] Out hna09/26/2023Og Martinez M.D. [facility] [address] [place] [address], License number: [id number]. Clinical History R29.9. BLOOD SMEAR EVALUATION CBC (09/23/2023 0818): WBC = 12.1 X10E9/L; HGB = 9.1 g/dL; HCT = 27.8%; MCV = 85 fL; PLT = 924 X10E9/L OTHER LAB DATA: Noncontributory. BLOOD SMEAR: Leukocytes: Neutrophilic leukocytosis with cytotoxic changes and lymphocytopenia. Erythrocytes: Moderate normocytic normochromic anemia. Platelets: Thrombocytosis. Specimen(s) Received Blood Smear Review Fee Codes(s): 1; 94973 JAK2 V617F mutationon 2023 JAK2 gene p.Zxu098Bnn Molgen Ql (Bld/Tiss) SEE COMMENTS 09/26/2023 10:21 AM [facility] Comment on above: NOTE Test Result Flag Unit RefValue ----- JAK2 V617F Mutation Detection, B JAK2 Result see interpretation JAK2 V617F Mutation Detection, B See Note Peripheral blood, JAK2 V617F mutation analysis: Negative for JAK2 V617F. A negative [id number] test result does not exclude the possibility [...] been determined at 0.06% (see [facility] Interpretive Handbook for method details). This test was developed and its performance characteristics determined by [facility] in a manner consistent with CLIA requirements. This test has not been cleared or approved by the U.S. Food and Drug Administration. Test Performed by: [address] [address] [employer]: Thierry Duran M.D. Ph.D.; CLIA# [id number] JAK2 gene p.Inw029Rna Molgen Ql (Bld/Tiss)on 09-26-2023 [facility] Pathologist review Pathologi st comment (Bld) [Interp]on 09-26-2023 [facility] Surgical Pathologyon 024 [facility] [address] [place] [address] Surgical Pathology Consultation Patient Name:JOSE DAVID:1945 (Age: 78)Gender:FTaken:09/25/19 24Reported:4Phys ician(s):Kristel Reid MD ([phone])Copy To: Rec. #:[id number]: #[id number] Final Pathologic Diagnosis 1. Left temporal artery [...] correlation is suggested. Report Electronically Signed Out [facility]/09/26/2023José Luis Pederson MD Interpretation performed at [facility], [address] [place] [address], License number: [id number]. Clinical History Temporal arteries. Gross Description 1. Received in formalin labeled MULUGETA, left temporal artery biopsy is a segment of vasculature, 2 x 0.3 cm. The specimen is sectioned to reveal a pinpoint lumen. Are 3 segments of vasculature ranging from 0.5 cm to 1.2 cm in length by 0.2 cm in diameter. The specimen is submitted entirely in a single cassette. (1,ns,[id number], m1) . 2. Received in formalin labeled UMLUGETA, right temporal artery biopsy are 3 segments of vasculature ranging from 0.5 cm to 1.2 cm in length by 0.2 cm in diameter. The segments are sectioned to reveal pinpoint lumens. The specimen are submitted entirely in cassettes A-B. (2,ns,[id number], m1) . /09/25/2023G Specimen(s) Received 1: Left temporal artery biopsy 2: Right temporal artery biopsy Fee Codes(s): 1; 29987, 29062 2; 25571, 71233 [facility] INTEX Program BCR/ABL by PCR w/ Reflexon 0 09-25-2023 Narrative diagnostic report [employer] [facility] (Bld/Tiss) [Interp] SEE COMMENTS 09/25/2023 04:24 PM INTEX Program Comment on above: NOTE Test Result Flag Unit RefValue ----- BCR/ABL1 Reflex, Qual/Quant Specimen Type EDTA WHOLE BLOOD BCR/ABL1 Reflex Result see interpretation Interpretation See Note Peripheral blood, BCR/ABL1 mRNA analysis, qualitative: Negative. No BCR/ABL1 mRNA transcripts were detected. Method summary: The presence or absence of BCR/ABL1 mRNA transcripts was evaluated using a qualitative, reverse eyelet maker PCR-based assay. The assay detects nearly all published and theoretical BCR/ABL1 fusion forms including the common e13/e14-a2 (p210) and e1-a2 (p190) transcripts, as well as other rarer variants (e.g. e19-a2 (p230), e13/e14-a3, e1-a3, etc.). The limit of detection for this assay is 0.1%. Please contact the lab at [phone] with questions or if additional testing is required. See [facility] Test Catalog for additional method details. Signing Pathologist: Ammon Titus M.D. (Jane), Ph.D. ADDITIONAL INFORMATION This test was developed and its performance characteristics determined by [facility] in a manner consistent with CLIA requirements. This test has not been cleared or approved by the U.S. Food and Drug Administration. Test Performed by: [place] [address] [employer]: Theirry Duran M.D. Ph.D.; CLIA# [id number] Narrative diagnostic report Martha Tidwell (Bld/Tiss) [Interp]on 09-25-2023 [facility] Surgical Pathologyon 024 Surgical Pathology Normal [facility] Comment on above: Result Comment: [facility] [address] [place] [address] Surgical Pathology Consultation ADDENDUM [place] Patient Name:JOSE DAVID:1945 (Age: 78)Gender:FTaken:09/25/2023eported:09/26/2023hysician(s):Kristel Reid MD ([phone])Copy To: Rec. #:[id number]: #[id number] Final Pathologic Diagnosis 1. Left temporal artery [...] Electronically Signed Out tay/09/26/2023José Luis Pederson MD Addendum ([facility]) Date Reported: 09/29/2023 In both parts of the specimen, and elastic special stain (with appropriate controls) demonstrates fragmentation and loss of the internal elastic lamina. Electronically Signed Out José Luis Pederson MD Interpretation performed at [facility], [address] [place] [address], [place] [address], License number: [id number]. Clinical History Temporal arteries. Gross Description 1. Received in formalin labeled MULUGETA, left temporal artery biopsy is a segment of vasculature, 2 x 0.3 cm. The specimen is sectioned to reveal a pinpoint lumen. Are 3 segments of vasculature ranging from 0.5 cm to 1.2 cm in length by 0.2 cm in diameter. The specimen is submitted entirely in a single cassette. (1,ns,[id number], m1) . 2. Received in formalin labeled MULUGETA, right temporal artery biopsy are 3 segments of vasculature ranging from 0.5 cm to 1.2 cm in length by 0.2 cm in diameter. The segments are sectioned to reveal pinpoint lumens. The specimen are submitted entirely in cassettes A-B. (2,ns,E30-3000-2, m1) . 4R Specimen(s) Received 1: Left temporal artery biopsy 2: Right temporal artery biopsy Fee Codes(s): 1; 83921, 58236 2; 91612, 85056 dRVVT/dRVVT.excess phospholi pid Coag (PPP) [Ratio]on 09-25-2023 dRVVT excess phospholipid Coag Ql (PPP) Negative [facility] ANCAon 09-24-2023 Neutrophil cytoplasmic Ab IF Ql (S) See Below [facility] Comment on above: NOTE TEST RESULT FLAG [...] results and clinical correlation. Test Performed By: [place] [address] Public Relations Analyst: Meño Hernandez III, M.D. [place] #[id number]^ BASIC METABOLIC PANLon 09-24 Anion gap [Moles/Vol] 10 mmol/L Normal 5-15 [facility] Comment on above: Performed By: #### C BCA, CMP, 1987-12, FEPR, 2276-4, 2284-8, 10276-1, 2132-9, 66211-7, 84444-6, 5130-0, 38845-2, 67987-6, 30866-1, 3357-1, 8092-9, 34592-8, 89335-4, 76735-4, 38988-5, 20169-1 #### [facility] ([id number]) [address] [place] [address], [address] [place] [address] Calcium [Mass/Vol] 8.5 mg/dL Normal 8.5-10.5 [facility] Comment on above: Performed By: #### C BCA, CMP, 1987-12, FEPR, 2276-4, 2284-8, 40361-1, 2132-9, 98322-6, 96250-9, 5130-0, 57657-9, 46549-8, 39620-6, 3357-1, 8092-9, 80550-1, 74446-0, 16628-1, 68086-2, 74247-9 #### [facility] ([id number]) [address] [facility], [address] [place] [address] Chloride [Moles/Vol] 101 mmol/L Normal 98-109 [facility] Comment on above: Performed By: #### C BCA, CMP, 1987-12, FEPR, 2276-4, 2284-8, 69161-0, 2132-9, 12835-1, 85439-2, 5130-0, 27908-3, 99151-7, 90630-9, 3357-1, 8092-9, 78164-0, 62464-6, 88060-1, 43273-1, 07062-2 #### [facility] ([id number]) [facility], [address] [place] [address] CO2 [Moles/Vol] 29 mmol/L Normal 22-32 [facility] Comment on above: Performed By: #### C BCA, CMP, 1987-12, FEPR, 2275-4, 2284-8, 81234-9, 2132-9, 95889-2, 99083-0, 5130-0, 66461-6, 73296-1, 82293-1, 3357-1, 8092-9, 30048-2, 70385-4, 34392-8, 31244-0, 93764-2 #### [facility] ([id number]) [facility], [address] [place] [address] Creatinine [Mass/Vol] 0.61 mg/dL Normal 0.40-1.00 [facility] Comment on above: Result Comment: METH OD TRACEABLE TO IDMS STANDARD Performed By: #### C BCA, CMP, 1987-12, FEPR, 2276-4, 2284-8, 47023-0, 2132-9, 82708-7, 17028-1, 5130-0, 50356-3, 35741-4, 57844-4, 3357-1, 8092-9, 42324-6, 74089-3, 83313-7, 61823-2, 56880-8 #### [facility] ([id number]) [address] [facility], [facility] [address] [place] [address] eGFR (CKD-EPI) NON-RACE DEPENDENT >90 Normal >59 [facility] Comment on above: Result Comment: Reported eGFR is based on the CKD-EPI 2020 equation that does not use a race coefficient. Performed By: #### C BCA, CMP, 1987-12, FEPR, 2276-4, 2284-8, 44877-6, 2132-9, 92885-1, 41239-5, 5130-0, 76793-7, 87905-6, 61132-1, 3357-1, 8092-9, 69050-1, 12666-9, 74298-9, 51868-8, 39339-9 #### [facility] ([id number]) [address] [facility], [address] [address] Glucose [Mass/Vol] 98 mg/dL Normal 65-99 [facility] Comment on above: Performed By: #### C BCA, CMP, 1987-12, FEPR, 227-4, 2284-8, 43533-0, 2132-9, 05529-6, 28000-2, 5130-0, 90964-5, 87421-3, 08887-7, 3357-1, 8092-9, 39940-5, 48603-9, 92471-5, 97932-6, 19415-6 #### [facility] ([id number]) [address] [facility], [address] [place] [address] Potassium [Moles/Vol] 3.5 mmol/L Normal 3.5-5.0 [facility] Comment on above: Performed By: #### C BCA, CMP, 1987-12, FEPR, 2276-4, 2284-8, 42596-2, 2132-9, 94566-1, 19667-0, 5130-0, 99060-5, 30096-1, 07265-5, 3357-1, 8092-9, 20195-1, 31738-7, 97023-2, 91511-1, 24687-8 #### [facility] ([id number]) [facility], [address] [place] [address] Sodium [Moles/Vol] 140 mmol/L Normal 134-146 [facility] Comment on above: Performed By: #### C BCA, CMP, 1987-12, FEPR, 2276-4, 2284-8, 15182-9, 2132-9, 93708-9, 14266-4, 5130-0, 76648-8, 51497-0, 68843-6, 3357-1, 8092-9, 46872-1, 68247-1, 89675-1, 13344-9, 84556-4 #### [facility] ([id number]) [address] [place] [address], [address] [address] Urea nitrogen [Mass/Vol] 22 mg/dL Normal 5-27 [facility] Comment on above: Performed By: #### C BCA, CMP, 1987-12, FEPR, 2276-4, 2284-8, 17789-5, 2132-9, 31533-0, 47305-9, 5130-0, 70867-6, 31558-5, 09312-1, 3357-1, 8092-9, 26092-9, 12420-0, 18918-4, 68801-4, 23926-3 #### [facility] ([id number]) [address] [place] [address], [address] [place] [address] Basic Metabolic Panelon - Anion gap [Moles/Vol] 10 mmol/L 5 - 15 mmol/L [facility] Calcium [Mass/Vol] 8.5 mg/dL 8.5 - 10. 5 mg/dL [facility] Chloride [Moles/Vol] 101 mmol/L 98 - 10 9 mmol/L [facility] CO2 [Moles/Vol] 29 mmol/L 22 - 32 mmol/L [facility] Creatinine [Mass/Vol] 0.61 mg/dL 0.40 - 1.00 mg/dL [facility] Comment on above: METHOD TRACEABLE TO IDAZ STANDARD eGFR (CKD-EPI)non-race dependent - PINF [facility] Comment on above: Reported eGFR is based on the CKD-EPI 2020 equation that does not use a race coefficient. Glucose [Mass/Vol] 98 mg/dL 65 - 99 mg/dL [facility] Potassium [Moles/Vol] 3.5 mmol/L 3.5 - 5.0 mmol/L [facility] Sodium [Moles/Vol] 140 mmol/L 134 - 146 mmol/L [facility] Urea nitrogen [Mass/Vol] 22 mg/dL 5 - 27 mg/dL [facility] CBC AND AUTO DIFFon 09-24-19 24 ABSOLUTE BASOPHIL 0.1 X10E9/L Normal 0.0-0.2 [facility] Comment on above: Performed By: #### C KELVIN EARLY, 1987-12, FEPR, 2276-4, 2284-8, 68883-0, 2132-9, 29020-6, 11404-9, 5130-0, 60348-4, 37546-0, 14441-0, 3357-1, 8092-9, 20341-0, 03481-2, 02922-5, 13349-2, 59213-1 #### [facility] ([id number]) [address] [facility], [address] [place] [address] ABSOLUTE NEUTROPHIL 16.3 X10E9/L High 1.5-6.6 [facility] Comment on above: Performed By: #### C KELVIN EARLY, 1987-12, FEPR, 2276-4, 2284-8, 05604-0, 2132-9, 17925-6, 32548-6, 5130-0, 63940-8, 88231-3, 24146-6, 3357-1, 8092-9, 24374-7, 74045-1, 96628-8, 46804-9, 61123-3 #### [facility] ([id number]) [address], [address] [place] [address] Basophils/100 WBC (Bld) 0.5 % Normal [facility] Comment on above: Performed By: #### C BCA, CMP, 1987-12, FEPR, 2276-4, 2284-8, 72960-9, 2132-9, 65752-3, 35637-4, 5130-0, 34316-4, 65270-7, 76789-3, 3357-1, 8092-9, 91245-3, 32608-8, 35472-4, 91804-7, 78431-9 #### [facility] ([id number]) [address], [address] [place] [address] Eosinophils (Bld) [#/Vol] 0.0 10*3/uL Normal 0.0-0.4 [facility] Comment on above: Performed By: #### C BCA, CMP, 1987-12, FEPR, 2275-4, 2284-8, 20263-4, 2132-9, 03089-8, 47537-2, 5130-0, 91837-4, 49060-2, 04722-0, 3357-1, 8092-9, 16715-8, 11066-1, 66126-0, 37852-5, 79394-6 #### [facility] ([id number]) [address], [address] [place] [address] Eosinophils/100 WBC (Bld) 0.0 % Normal [facility] Comment on above: Performed By: #### C BCA, CMP, 1987-12, FEPR, 2275-4, 2284-8, 19199-8, 2132-9, 73982-0, 76359-7, 5130-0, 54099-3, 40061-5, 35225-2, 3357-1, 8092-9, 81832-0, 76873-1, 77769-1, 61555-5, 33785-6 #### [facility] ([id number]) [address], [address] [place] [address] Erythrocyte distribution width (RBC) [Ratio] 14.8 % Normal 11.5-15.0 [facility] Comment on above: Performed By: #### C SHARATH, CMP, 1987-12, FEPR, 2276-4, 2284-8, 56518-6, 2132-9, 82577-4, 22161-4, 5130-0, 81277-9, 26640-7, 24634-7, 3357-1, 8092-9, 72384-2, 54072-2, 85606-0, 97174-8, 67799-0 #### [facility] ([id number]) [address], [address] [place] [address] Hematocrit (Bld) [Volume fraction] 25.6 % Low 35-47 [facility] Comment on above: Performed By: #### C SHARATH, KELVIN, 1987-12, FEPR, 2275-4, 2284-8, 65230-9, 2131-9, 68237-6, 52330-3, 5130-0, 07364-9, 96745-0, 84044-2, 3357-1, 8092-9, 51077-7, 94810-7, 20605-8, 52267-1, 76959-1 #### [facility] ([id number]) [address], [address] [place] [address] Hemoglobin (Bld) [Mass/Vol] 8.3 g/dL Low 11.7-15.5 [facility] Comment on above: Performed By: #### C SHARATH, CMP, 1987-12, FEPR, 2276-4, 2284-8, 68343-6, 2132-9, 07691-4, 87371-1, 5130-0, 06638-8, 83261-7, 93889-0, 3357-1, 8092-9, 32999-9, 25116-8, 41139-7, 73796-1, 81963-6 #### [facility] ([id number]) [address], [address] [place] [address] Lymphocytes (Bld) [#/Vol] 1.6 10*3/uL Normal 1.0-3.5 [facility] Comment on above: Performed By: #### C SHARATH, CMP, 1987-12, FEPR, 2276-4, 2284-8, 56739-5, 2132-9, 91916-5, 23000-1, 5130-0, 25992-9, 50997-6, 63860-1, 3357-1, 8092-9, 26087-7, 62989-4, 68370-9, 73659-0, 72131-5 #### [facility] ([id number]) [address], [address] [place] [address] Lymphocytes/100 WBC (Bld) 8.3 % Normal [facility] Comment on above: Performed By: #### C SHARATH, CMP, 1987-12, FEPR, 2275-4, 2284-8, 43562-7, 2132-9, 32060-5, 71255-6, 5130-0, 95812-2, 92918-8, 99961-5, 3357-1, 8092-9, 05287-6, 80296-3, 14679-2, 05593-2, 35069-8 #### [facility] ([id number]) [address], [address] [place] [address] MCH (RBC) [Entitic mass] 27.8 pg Normal 27-34 [facility] Comment on above: Performed By: #### C SHARATH, CMP, 1987-12, FEPR, 2276-4, 2284-8, 58905-7, 2132-9, 89037-7, 94920-8, 5130-0, 48619-6, 88055-9, 18766-8, 3357-1, 8092-9, 60334-1, 77568-4, 12075-7, 15893-8, 21162-1 #### [facility] ([id number]) [address], [address] [place] [address] MCHC (RBC) [Mass/Vol] 32.5 g/dL Normal 32-36 [facility] Comment on above: Performed By: #### C BCA, CMP, 1987-12, FEPR, 2276-4, 2284-8, 90720-0, 2132-9, 49279-2, 96519-5, 5130-0, 33809-1, 17439-3, 34255-7, 3357-1, 8092-9, 92525-9, 80483-8, 04276-3, 81934-8, 93035-0 #### [facility] ([id number]) [address], [address] [place] [address] MCV (RBC) [Entitic vol] 85 fL Normal 80-100 P [facility] Comment on above: Performed By: #### C BCA, CMP, 1987-12, FEPR, 6-4, 2284-8, 03351-4, 2132-9, 65247-0, 63383-5, 5130-0, 97314-1, 40459-2, 70002-3, 3357-1, 8092-9, 26446-0, 51636-0, 48380-0, 22818-1, 24411-7 #### [facility] ([id number]) [address] [facility], [address] [place] [address] Monocytes (Bld) [#/Vol] 1.0 10*3/uL High 0-0.9 [facility] Comment on above: Performed By: #### C BCA, CMP, 1987-12, FEPR, 227-4, 2284-8, 90856-8, 2132-9, 84046-6, 52249-3, 5130-0, 17100-9, 70246-3, 37989-1, 3357-1, 8092-9, 40354-8, 22724-5, 90094-2, 95440-2, 26149-1 #### [facility] ([id number]) [address], [address] [place] [address] Monocytes/100 WBC (Bld) 5.0 % Normal [facility] Comment on above: Performed By: #### C BCA, CMP, 1987-12, FEPR, 2276-4, 2284-8, 96435-7, 2132-9, 06197-5, 85860-2, 5130-0, 88249-7, 71797-1, 45717-1, 3357-1, 8092-9, 88467-4, 60574-9, 13515-1, 49448-6, 43059-4 #### [facility] ([id number]) [address], [address] [place] [address] Neutrophils/100 WBC (Bld) 86.2 % Normal [facility] Comment on above: Performed By: #### C SHARATH, CMP, 1987-12, FEPR, 2275-4, 2284-8, 01167-2, 2132-9, 89563-7, 36382-7, 5130-0, 70249-0, 84987-1, 11579-6, 3357-1, 8092-9, 36067-5, 28807-5, 28569-0, 34029-9, 68501-1 #### [facility] ([id number]) [address], [address] [place] [address] Platelet mean volume (Bld) [Entitic vol] 6.5 fL Low 7-12 [facility] Comment on above: Performed By: #### C BCA, CMP, 1987-12, FEPR, 2275-4, 2284-8, 68735-4, 2132-9, 33042-6, 65889-2, 5130-0, 01413-1, 71846-2, 07318-7, 3357-1, 8092-9, 67006-9, 67793-7, 57248-4, 41801-2, 42785-4 #### [facility] ([id number]) [address], [address] [place] [address] Platelets (Bld) [#/Vol] 902 10*3/uL High 150-450 [facility] Comment on above: Performed By: #### C SHARATH, CMP, 1987-12, FEPR, 2276-4, 2284-8, 47184-0, 2132-9, 97697-2, 48286-2, 5130-0, 59450-0, 58325-8, 68469-5, 3357-1, 8092-9, 29491-9, 71227-3, 27234-6, 30534-6, 44922-4 #### [facility] ([id number]) [address], [address] [place] [address] RBC COUNT 3.00 X10E12/L Low 3.80-5.20 [facility] Comment on above: Performed By: #### C SHARATH, CMP, 1987-12, FEPR, 2276-4, 2284-8, 57300-8, 2-9, 89552-8, 01931-3, 5130-0, 01759-4, 71742-6, 94695-1, 3357-1, 8092-9, 58566-4, 25551-2, 08771-8, 48450-2, 57496-2 #### [facility] ([id number]) [address], [address] [place] [address] WBC (Bld) [#/Vol] 18.9 10*3/uL High 4.0-11.0 [facility] Comment on above: Performed By: #### C SHARATH, CMP, 1988-5, FEPR, 2276-4, 2284-8, 94426-8, 2132-9, 76005-0, 06777-1, 5130-0, 76141-9, 67104-5, 41514-7, 3357-1, 8092-9, 30223-2, 69212-0, 56733-7, 27390-1, 91119-5 #### [facility] ([id number]) [address] [facility], [address] [place] [address] CBC auto differentialon 08-27 Basophils (Bld) [#/Vol] 0.1 10*3/uL [facility] Basophils/100 WBC (Bld) 0.5 % [facility] Eosinophils (Bld) [#/Vol] 0.0 10*3/uL [facility] Eosinophils/100 WBC (Bld) 0.0 % [facility] Erythrocyte distribution width (RBC) [Ratio] 14.8 % 11.5 - 15.0 % [facility] Hematocrit (Bld) [Volume fraction] 25.6 % Low 35 - 47 % [facility] Hemoglobin (Bld) [Mass/Vol] 8.3 g/dL Low 11.7 - 15.5 g/dL [facility] Interpretation and review of laboratory results Abnormal [facility] Lymphocytes (Bld) [#/Vol] 1.6 10*3/uL [facility] Lymphocytes/100 WBC (Bld) 8.3 % [facility] MCH (RBC) [Entitic mass] 27.8 pg 27 - 34 pg [facility] MCHC (RBC) [Mass/Vol] 32.5 g/dL 32 - 3 6 g/dL [facility] MCV (RBC) [Entitic vol] 85 fL 80 - 100 fL [facility] Monocytes (Bld) [#/Vol] 1.0 10*3/uL High [facility] Monocytes/100 WBC (Bld) 5.0 % [facility] Neutrophils (Bld) [#/Vol] 16.3 10*3/uL High [facility] Neutrophils/100 WBC (Bld) 86.2 % [facility] Platelet mean volume (Bld) [Entitic vol] 6.5 fL Low 7 - 12 fL [employer] [facility] Platelets (Bld) [#/Vol] 902 10*3/uL High [facility] RBC (Bld) [#/Vol] 3.00 10*6/uL Low [email or web address] WBC corrected for nucl RBC Auto (Bld) [#/Vol] 18.9 High [employer] Cardiac echo study Procedure Ordered By: Nacho Grant on 09-24-2023 Aortic root 2.80 cm [employer] Work Phone: AV mean gradient 6.00 mmHg [facility] Work Phone: AV peak gradient 8.64 mmHg [employer] Work Phone: [phone] AV peak kym 147.00 cm/s [employer] Work Phone: AV valve area 1.95 cm2 [employer] Work Phone: AV Velocity Ratio 0.77 [employer] Work Phone: AV VTI 33.60 cm [employer] Work Phone: E wave deceleration time 187.00 msec [employer] Work Phone: E/A ratio 0.72 [employer] Work Phone: Echo EF Estimated 63 % [employer] Work Phone: EF 63 % [employer] Work Phone: Energy loss index 1.88 [employer] Work Phone: FS 33 % 28 - 44 % [employer] Work Phone: Interventricular Septum Diastolic Thickness by 2D 10 cm [employer] Work Phone: IVS 1.00 cm 0.6 - 1.1 cm [employer] Work Phone: LA size 3.60 cm [employer] Work Phone: LA volume 48.00 cm3 [employer] Work Phone: LA Volume Index 31.8 mL/m2 [employer] Work Phone: Left Ventricle Mass 122.207933463115960 g [employer] Work Phone: [phone] LV Diastolic Volume 71.20 mL [facility] Work Phone: [phone] LV ESV A2C 56.30 mL [employer] Work Phone: [phone] LV ESV A4C 33.20 mL [employer] Work Phone: [phone] LV RWT 2D 51.28 [employer] Work Phone: [phone] LV Systolic Volume 26.00 mL [facility] Work Phone: [phone] LVIDd 3.90 cm 3.78 - 5.25 cm [employer] Work Phone: [phone] LVIDs 2.60 cm 2.25 - 3.40 cm [employer] Work Phone: [phone] LVOT diameter 1.80 cm [employer] Work Phone: [phone] LVOT peak kym 1.37 m/s [employer] Work Phone: [phone] LVOT peak VTI 25.80 cm [employer] Work Phone: LVOT stroke volume 65.65 ml [facility] Work Phone: [phone] MV Peak A Kym 99.40 cm/s [employer] Work Phone: [phone] MV Peak E Kym 71.30 cm/s [employer] Work Phone: [phone] MV pressure 1/2 time 55.00 ms [facility] Work Phone: [phone] MV TDI E' (medial) 6.85 cm/s [facility] Work Phone: MV valve area p 1/2 method 4.00 cm2 [employer] Work Phone: [phone] PV peak gradient 4.16 mmHg [facility] Work Phone: PW 1.00 cm 0.6 - 1.1 cm [facility] Work Phone: [phone] RV diastolic dimension (basal) 29.0 mm [facility] Work Phone: [phone] TAPSE 1.88 cm [facility] Work Phone: [phone] TDI 9.68 cm/s [facility] Work Phone: [phone] Valve area - Index 1.3 [employer] Work Phone: [phone] ZLVIDD -1.32 [employer] Work Phone: [phone] ZLVIDS -0.48 [employer] Work Phone: [phone] [employer] Work Phone: Cardiac echo study Procedure on [...] for comparison. [facility] Radiology Study observation (narrative) [employer] MR BRAIN W WO CONTon 024 MR [...] of the major arterial structures in the [place]. The paranasal sinuses are clear. [...] Jewell MD on 09/24/2023 4:24 AM Normal [facility] MR Brain WO and W contrast I [...] of the major arterial structures in the [place]. The paranasal sinuses are clear. [...] of the major arterial structures in the [place]. The paranasal sinuses are clear. [...] Gilbert Jewell MD on 09/24/2023 4:24 AM [facility] Radiology Study observation (narrative) [facility] MR ORBIT W WO CONTon 024 MR [...] of the major arterial structures in the [place]. The paranasal sinuses are clear. [...] Jewell MD on 09/24/2023 4:25 AM Normal [facility] MR Orbit WO and W contrast I Manfred 09-24-2023 EXAM:MR ORBIT W WO C ONT [...] of the major arterial structures in the [place]. The paranasal sinuses are clear. [...] of the major arterial structures in the [place]. The paranasal sinuses are clear. [...] Gilbert Jewell MD on 09/24/2023 4:25 AM [facility] Radiology Study observation (narrative) [facility] MR Orbit WO and W contrast I VOrdered By: Gilbert Jewell on 09-24-2023 [facility] Work Phone: Neutrophil cytoplasmic Ab IF Ql (S)on 09-24-2023 [facility] Reticulocyteson 09-24-2023 Reticulocytes/100 RBC (Bld) 2.3 % High 0.4 - 2.2 % [facility] Reticulocytes/100 RBC (Bld)o n 09-24-2023 Interpretation and review of laboratory results Abnormal [facility] RETICULOCYTE COUNT 2.3 % High 0.4-2.2 [facility] Comment on above: Performed By: #### C BCA, CMP, 1988-5, FEPR, 2276-4, 2284-8, 53123-4, 2132-9, 25942-0, 60613-3, 5130-0, 00984-7, 09049-6, 00468-9, 3357-1, 8092-9, 21278-0, 64893-5, 10187-6, 66899-7, 75830-6 #### [facility] ([id number]) [address], [address] [place] [address] ACUTE HEPATITIS PANELon 08-27 ANTI HCV W/PCR REFLX Non-Reactive Normal NRCT Pr [facility] Comment on above: Result Comment: If recent infection suspected, recommend repeat testing (>2 months). Aogwhc-ft-yxnjia ratio is <0.80. Performed By: #### C SHARATH, CMP, 1987-12, FEPR, 2276-4, 2284-8, 60924-1, 2132-9, 98404-4, 44746-2, 5130-0, 66518-9, 48987-7, 70705-4, 3357-1, 8092-9, 74625-3, 36798-5, 93978-6, 92358-6, 17460-0 #### [facility] ([id number]) [address], [address] [place] [id number] HEPATITIS A IGM Non-Reactive Normal NRCT [facility] Comment on above: Performed By: #### C SHARATH, CMP, 1987-12, FEPR, 6-4, 2284-8, 74272-1, 2132-9, 56946-4, 94073-6, 5130-0, 52116-5, 83219-3, 40353-7, 3357-1, 8092-9, 82184-3, 83685-8, 66615-2, 77983-0, 43677-6 #### [facility] ([id number]) [address], [address] [place] [address] HEPATITIS B CORE IGM Negative Normal NEG [facility] Comment on above: Performed By: #### C SHARATH, CMP, 1987-12, FEPR, 2276-4, 2284-8, 19967-2, 2132-9, 63889-1, 95734-9, 5130-0, 79756-1, 09918-6, 98894-4, 3357-1, 8092-9, 98685-7, 92702-8, 29108-7, 78341-0, 63006-1 #### [facility] ([id number]) [address] [place] [address], [address] [place] [address] HEPATITIS B SURF AG Negative Normal NEG [facility] Comment on above: Performed By: #### C SHARATH, [facility], 1987-12, FEPR, 2275-, 2283-8, 63355-8, 2132-9, 99130-2, 66738-4, 5130-0, 49557-7, 04898-3, 25247-3, 3357-1, 8092-9, 63010-4, 52228-4, 97954-4, 69093-3, 18807-4 #### [facility] ([id number]) [address] [place] [address], [address] [place] [address] SILVIA Screen w/ Reflexon 09-23 Nuclear Ab IA Ql (S) Positive Abnormal Negativ e^Ne [facility] Comment on above: Testing performed using multiplex flow immunoassay. Eleven different antigens associated with systemic autoimmune diseases (dsDNA,Sm,Sm/VOCATIONAL TECHNICAL EDUCATION TEACHER,VOCATIONAL TECHNICAL EDUCATION TEACHER,Chromatin, SSA,SSB,Tiki-1,Scl70,Ribo P,Centromere B) are included in this screening test. ANTI CARDIOLIPIN AB IGG IGA IGMon 09-23-2023 MIRIAM IgA <2.0 Normal 0-19.9 [facility] Comment on above: Performed By: #### C BCA, [facility] [facility], 1987-12, FEPR, 6-4, 2284-8, 17360-1, 2132-9, 07788-2, 94142-3, 5130-0, 46584-2, 86851-9, 25708-6, 3357-1, 8092-9, 15026-0, 09153-2, 42467-2, 84520-9, 80354-1 #### [facility] ([id number]) [facility], [address] [place] [address] MIRIAM IgG <1.6 Normal 0-19.9 [facility] Comment on above: Performed By: #### C BCA, CMP, 1987-12, FEPR, 2275-4, 2284-8, 04129-2, 2132-9, 70853-2, 12091-0, 5130-0, 81481-6, 86075-0, 12075-2, 3357-1, 8092-9, 44699-2, 44953-9, 03345-3, 68702-2, 95731-8 #### [facility] ([id number]) [facility], [address] [place] [address] MIRIAM IgM <1.5 Normal 0-19.9 [facility] Comment on above: Performed By: #### C BCA, CMP, 1987-12, FEPR, 2275-4, 2284-8, 57389-0, 2132-9, 80496-5, 32805-4, 5130-0, 76885-2, 40043-5, 33321-6, 3357-1, 8092-9, 78080-7, 03615-0, 55706-8, 19633-1, 41560-2 #### [facility] ([id number]) [facility], [address] [place] [address] Anileridine Ql (U)on 024 JO1 ANTIBODY <0.2 Normal <1.0 [facility] Comment on above: Performed By: #### C BCA, CMP, 1987-12, FEPR, 227-4, 2284-8, 47281-9, 2132-9, 71455-1, 91738-2, 5130-0, 14178-7, 29812-9, 79807-3, 3357-1, 8092-9, 78061-9, 13167-1, 97857-7, 75232-9, 96630-7 #### [facility] ([id number]) [address] [facility], [address] [place] [address] Anti cardiolipin AB IgG IgA IgMon 09-23-2023 Cardiolipin IgA IA Qn (S) [facility] Cardiolipin IgG IA Qn (S) [facility] Cardiolipin IgM IA Qn (S) [facility] Anti-Chromatin IGGon 024 Chromatin Ab Ql 0.4 [facility] Comment on above: CLIA ID [id number] Anti-DNA antibody, double-st [place] 09-23-2023 DNA double strand Ab Qn (S) 1 [IU]/mL [facility] Comment on above: Interpretation-------- <5 Negative 5-9 Indeterminate >9 Positive CLIA ID [id number] Anti-Ribosomal P AB IGGon Ribosomal P IgG Qn (S) [facility] Comment on above: CLIA ID [id number] Anti-Mejia AB IGGon 09-23-19 24 Mejia extractable nuclear IgG Qn (S) [facility] Comment on above: CLIA ID [id number] BETA-2 GP1 AB PANELon 2023 BETA-2 GP1 IgA <2.0 Normal 0.0-19.9 [facility] Comment on above: Performed By: #### C BCA, CMP, 1988-5, FEPR, 2276-4, 2284-8, 10074-5, 2132-9, 75643-8, 69377-6, 5130-0, 66262-1, 34794-5, 01717-1, 3357-1, 8092-9, 48429-0, 46438-7, 84063-0, 89862-4, 01592-9 #### [facility] ([id number]) [address] [place] [address], [address] [place] [address] BETA-2 GP1 IgG <1.4 Normal 0.0-19.9 [facility] Comment on above: Performed By: #### C BCA, CMP, 1987-, FEPR, 2276-4, 2284-8, 11838-5, 2132-9, 89642-7, 31718-5, 5130-0, 30200-2, 69644-3, 42074-9, 3357-1, 8092-9, 40469-9, 23109-4, 41797-2, 19585-7, 01716-1 #### [facility] ([id number]) [address] [place] [address], [address] [place] [address] BETA-2 GP1 IgM 4.1 u/mL Normal 0.0-19.9 [facility] Comment on above: Performed By: #### C BCA, CMP, 1987-12, FEPR, 2276-4, 2284-8, 24725-4, 2132-9, 11215-9, 80759-8, 5130-0, 42898-0, 26624-5, 99736-8, 3357-1, 8092-9, 59159-4, 64368-6, 08323-6, 02640-4, 83043-8 #### [facility] ([id number]) [address] [place] [address], [address] [place] [address] Beta-2 glycoprotein antibodi eson 09-23-2023 Beta 2 glycoprotein 1 IgA IA Qn u/mL 0.0 - 19.9 u/mL [facility] Beta 2 glycoprotein 1 IgG IA Qn u/mL 0.0 - 19.9 u/mL [facility] Beta 2 glycoprotein 1 IgM IA Qn 4.1 u/mL 0.0 - 19.9 u/mL [facility] C-reactive proteinon 01-30-2 024 CRP [Mass/Vol] 13.3 mg/dL High 0.000 - 0.744 mg/dL [facility] CBC AND AUTO DIFFon 09-23-19 24 ABSOLUTE BASOPHIL 0.0 X10E9/L Normal 0.0-0.2 [facility] Comment on above: Performed By: #### C BCA, CMP, 1987-12, FEPR, 2276-4, 2284-8, 15789-6, 2132-9, 33021-7, 49930-2, 5130-0, 99936-4, 87911-0, 35760-8, 3357-1, 8092-9, 75605-5, 48365-9, 31339-7, 49662-3, 69757-8 #### [facility] ([id number]) [address] [facility], [address] [place] [address] ABSOLUTE NEUTROPHIL 11.5 X10E9/L High 1.5-6.6 [facility] Comment on above: Performed By: #### C BCA, CMP, 1987-12, FEPR, 2276-4, 2284-8, 55875-1, 2132-9, 92107-3, 69412-0, 5130-0, 84446-5, 41891-7, 89635-9, 3357-1, 8092-9, 64797-1, 23636-5, 91862-5, 48651-9, 49208-7 #### [facility] ([id number]) [address] [facility], [address] [place] [address] Basophils/100 WBC (Bld) 0.2 % Normal [facility] Comment on above: Performed By: #### C BCA, CMP, 1987-12, FEPR, 2276-4, 2284-8, 55867-0, 2132-9, 74378-1, 35307-4, 5130-0, 69734-2, 62156-3, 63895-4, 3357-1, 8092-9, 48942-7, 94267-3, 44572-3, 52745-7, 50047-8 #### [facility] ([id number]) [address], [address] [place] [address] Eosinophils (Bld) [#/Vol] 0.0 10*3/uL Normal 0.0-0.4 [facility] Comment on above: Performed By: #### C BCA, CMP, 1987-12, FEPR, 227-4, 2284-8, 34938-4, 2132-9, 65267-8, 65453-3, 5130-0, 02031-6, 92986-8, 94075-6, 3357-1, 8092-9, 80848-2, 87814-6, 10183-9, 70901-4, 01493-2 #### [facility] ([id number]) [address], [address] [place] [address] Eosinophils/100 WBC (Bld) 0.0 % Normal [facility] Comment on above: Performed By: #### C BCA, CMP, 1987-12, FEPR, 2275-4, 2284-8, 51549-4, 2132-9, 25601-2, 73385-0, 5130-0, 64572-2, 25278-7, 17813-0, 3357-1, 8092-9, 14065-7, 76130-9, 38895-9, 83074-1, 72406-1 #### [facility] ([id number]) [address], [address] [place] [address] Erythrocyte distribution width (RBC) [Ratio] 14.4 % Normal 11.5-15.0 [facility] Comment on above: Performed By: #### C BCA, CMP, 1987-12, FEPR, 2276-4, 2284-8, 92088-8, 2132-9, 23537-8, 70047-3, 5130-0, 53394-4, 26810-5, 48527-3, 3357-1, 8092-9, 32220-0, 94285-5, 29349-7, 21584-3, 42783-6 #### [facility] ([id number]) [address], [address] [place] [address] Hematocrit (Bld) [Volume fraction] 27.8 % Low 35-47 [facility] Comment on above: Performed By: #### C SHARATH, CMP, 1987-12, FEPR, 2275-4, 228-8, 05224-5, 213-9, 04808-1, 74825-7, 5130-0, 94354-5, 42929-8, 35750-3, 3357-1, 8092-9, 17360-7, 07120-9, 84399-0, 56422-5, 18861-3 #### [facility] ([id number]) [address], [address] [place] [address] Hemoglobin (Bld) [Mass/Vol] 9.1 g/dL Low 11.7-15.5 [facility] Comment on above: Performed By: #### C SHARATH, KELVIN, 1987-12, FEPR, 2275-4, 4-8, 38849-4, 2131-9, 29956-6, 06136-8, 5130-0, 12218-1, 28595-0, 11370-1, 3357-1, 8092-9, 06896-1, 46302-8, 30568-4, 79823-1, 05926-2 #### [facility] ([id number]) [address], [address] [place] [address] Lymphocytes (Bld) [#/Vol] 0.4 10*3/uL Low 1.0-3.5 [facility] Comment on above: Performed By: #### C SHARATH, CMP, 1987-12, FEPR, 6-4, 2284-8, 84598-7, 2132-9, 11096-2, 74864-1, 5130-0, 35212-1, 07815-6, 86410-0, 3357-1, 8092-9, 21917-8, 55279-2, 79366-0, 15461-2, 23479-1 #### [facility] ([id number]) [address], [address] [place] [address] Lymphocytes/100 WBC (Bld) 3.3 % Normal [facility] Comment on above: Performed By: #### C BCA, CMP, 1987-12, FEPR, 2276-4, 2284-8, 97933-3, 2132-9, 91936-0, 08999-6, 5130-0, 00061-6, 56492-4, 06279-2, 3357-1, 8092-9, 98119-2, 20614-7, 17603-7, 62992-9, 82340-2 #### [facility] ([id number]) [address], [address] [place] [address] MCH (RBC) [Entitic mass] 27.8 pg Normal 27-34 [facility] Comment on above: Performed By: #### C BCA, CMP, 1987-12, FEPR, 2276-4, 2284-8, 37672-5, 2132-9, 69598-3, 36693-6, 5130-0, 19444-7, 56498-7, 51253-5, 3357-1, 8092-9, 56857-6, 80794-2, 49563-6, 94915-2, 60467-9 #### [facility] ([id number]) [address], [address] [place] [address] MCHC (RBC) [Mass/Vol] 32.7 g/dL Normal 32-36 [facility] Comment on above: Performed By: #### C BCA, CMP, 1987-12, FEPR, 2276-4, 2284-8, 13689-2, 2132-9, 73474-1, 37271-8, 5130-0, 23754-5, 09644-7, 68927-7, 3357-1, 8092-9, 98051-4, 99149-7, 45612-8, 34502-3, 33505-3 #### [facility] ([id number]) [address], [address] [place] [address] MCV (RBC) [Entitic vol] 85 fL Normal 80-100 P [facility] Comment on above: Performed By: #### C BCA, CMP, 1987-12, FEPR, 2276-4, 2284-8, 10031-2, 2132-9, 79278-2, 69551-5, 5130-0, 89219-6, 43816-3, 20304-1, 3357-1, 8092-9, 97147-7, 72044-4, 19249-2, 50957-2, 38006-9 #### [facility] ([id number]) [address], [address] [place] [address] Monocytes (Bld) [#/Vol] 0.1 10*3/uL Normal 0-0.9 [facility] Comment on above: Performed By: #### C BCA, CMP, 1987-12, FEPR, 2276-4, 2284-8, 02058-5, 2132-9, 48557-9, 54733-5, 5130-0, 33708-7, 90676-9, 96627-4, 3357-1, 8092-9, 72846-3, 48527-8, 24519-3, 19212-8, 37394-3 #### [facility] ([id number]) [address], [address] [place] [address] Monocytes/100 WBC (Bld) 1.0 % Normal P [facility] Comment on above: Performed By: #### C BCA, CMP, 1987-12, FEPR, 2276-4, 2284-8, 21735-8, 2132-9, 46062-0, 06628-2, 5130-0, 28496-0, 50799-4, 69706-6, 3357-1, 8092-9, 06402-0, 56185-7, 09461-6, 67946-7, 47738-5 #### [facility] ([id number]) [address], [address] [place] [address] Neutrophils/100 WBC (Bld) 95.5 % Normal [facility] Comment on above: Performed By: #### C BCA, CMP, 1987-12, FEPR, 2276-4, 2284-8, 47657-3, 2132-9, 84704-7, 22155-6, 5130-0, 98386-3, 73355-8, 95988-5, 3357-1, 8092-9, 77699-5, 83045-7, 27807-3, 96931-7, 39546-4 #### [facility] ([id number]) [address], [address] [place] [address] Platelet mean volume (Bld) [Entitic vol] 6.2 fL Low 7-12 [facility] Comment on above: Performed By: #### C BCA, CMP, 1987-12, FEPR, 2276-4, 2284-8, 09462-0, 2132-9, 02703-7, 75872-2, 5130-0, 84224-9, 28067-6, 43671-5, 3357-1, 8092-9, 53991-1, 67200-8, 74548-9, 88795-2, 61255-0 #### [facility] ([id number]) [address], [address] [place] [address] Platelets (Bld) [#/Vol] 924 10*3/uL High 150-450 [facility] Comment on above: Performed By: #### C BCA, CMP, 1987-12, FEPR, 2276-4, 2284-8, 90083-8, 2132-9, 33879-6, 62266-0, 5130-0, 47869-3, 23511-1, 40104-0, 3357-1, 8092-9, 78155-6, 06840-8, 08143-1, 56024-0, 81156-8 #### [facility] ([id number]) [address] [facility], [address] [place] [address] RBC COUNT 3.27 X10E12/L Low 3.80-5.20 [facility] Comment on above: Performed By: #### C BCA, CMP, 1987-12, FEPR, 2276-4, 2284-8, 15645-3, 2132-9, 22354-4, 51618-7, 5130-0, 91069-2, 46772-1, 47508-7, 3357-1, 8092-9, 93707-9, 42218-3, 65680-5, 34880-2, 82277-8 #### [facility] ([id number]) [address] [facility], [address] [place] [address] WBC (Bld) [#/Vol] 12.1 10*3/uL High 4.0-11.0 [facility] Comment on above: Performed By: #### C BCA, CMP, 1987-12, FEPR, 6-4, 2284-8, 92267-0, 2132-9, 22718-4, 72420-6, 5130-0, 85316-8, 08979-4, 84778-5, 3357-1, 8092-9, 85707-7, 90054-6, 71581-5, 07963-4, 87916-0 #### [facility] ([id number]) [address] [facility], [address] [place] [address] ABSOLUTE BASOPHIL 0.2 X10E9/L Normal 0.0-0.2 [facility] Comment on above: Performed By: #### C BCA, CMP, 1987-12, FEPR, 2276-4, 2284-8, 60193-3, 2132-9, 00664-9, 07198-8, 5130-0, 68340-5, 42351-8, 49387-6, 3357-1, 8092-9, 85439-2, 89010-1, 90451-7, 69126-8, 06144-6 #### [facility] ([id number]) [address] [facility], [address] [place] [address] ABSOLUTE NEUTROPHIL 10.4 X10E9/L High 1.5-6.6 [facility] Comment on above: Performed By: #### C BCA, CMP, 1987-12, FEPR, 6-4, 2284-8, 93306-5, 2132-9, 96947-7, 43809-2, 5130-0, 54837-2, 07242-7, 27957-6, 3357-1, 8092-9, 06609-3, 81666-6, 10489-7, 29287-0, 69204-0 #### [facility] ([id number]) [facility]0 [facility], [address] [place] [address] Basophils/100 WBC (Bld) 2.1 % Normal [facility] Comment on above: Performed By: #### C BCA, CMP, 1987-12, FEPR, 2275-4, 2284-8, 45358-8, 2132-9, 82381-8, 69343-4, 5130-0, 29052-9, 79956-9, 44289-0, 3357-1, 8092-9, 91125-3, 73078-5, 25919-0, 54917-5, 67923-5 #### [facility] ([id number]) [address] [facility], [address] [place] [address] Eosinophils (Bld) [#/Vol] 0.0 10*3/uL Normal 0.0-0.4 [facility] Comment on above: Performed By: #### C BCA, CMP, 1987-12, FEPR, 2276-4, 2284-8, 69769-7, 2132-9, 34073-1, 15644-9, 5130-0, 67751-3, 38419-1, 54931-9, 3357-1, 8092-9, 29658-0, 34229-0, 10753-6, 00452-1, 68293-1 #### [facility] ([id number]) [address], [address] [place] [address] Eosinophils/100 WBC (Bld) 0.0 % Normal [facility] Comment on above: Performed By: #### C SHARATH, [facility], 1987-12, FEPR, 2276-4, 2284-8, 40659-1, 2132-9, 08437-3, 26990-5, 5130-0, 10172-4, 34450-1, 86707-9, 3357-1, 8092-9, 04485-5, 94344-8, 92528-0, 15432-1, 71478-3 #### [facility] ([id number]) [address], [address] [place] [address] Erythrocyte distribution width (RBC) [Ratio] 14.6 % Normal 11.5-15.0 [facility] Comment on above: Performed By: #### C SHARATH, CMP, 1987-12, FEPR, 2276-4, 2284-8, 58275-9, 2132-9, 03048-5, 40814-2, 5130-0, 91774-7, 95321-3, 50846-0, 3357-1, 8092-9, 11890-3, 23428-8, 21406-1, 38109-6, 97245-3 #### [facility] ([id number]) [address], [address] [place] [address] Hematocrit (Bld) [Volume fraction] 26.2 % Low 35-47 [facility] Comment on above: Performed By: #### C BCA, CMP, 1987-, FEPR, 2276-4, 2284-8, 65714-5, 2132-9, 85746-8, 10721-8, 5130-0, 46297-5, 13490-6, 10428-1, 3357-1, 8092-9, 76040-3, 92958-9, 48267-5, 82034-5, 57989-2 #### [facility] ([id number]) [address], [address] [place] [address] Hemoglobin (Bld) [Mass/Vol] 8.6 g/dL Low 11.7-15.5 [facility] Comment on above: Performed By: #### C BCA, CMP, 1987-12, FEPR, 227-4, 2284-8, 08143-4, 2132-9, 69577-4, 66111-2, 5130-0, 24224-2, 41969-5, 96832-5, 3357-1, 8092-9, 79409-4, 48890-5, 21991-2, 49917-7, 14841-9 #### [facility] ([id number]) [address], [address] [place] [address] Lymphocytes (Bld) [#/Vol] 0.4 10*3/uL Low 1.0-3.5 [facility] Comment on above: Performed By: #### C BCA, CMP, 1987-12, FEPR, 2276-4, 2284-8, 24202-0, 2132-9, 33218-8, 01927-9, 5130-0, 80816-6, 48963-1, 05978-8, 3357-1, 8092-9, 82960-4, 71157-9, 05493-8, 54394-9, 56649-3 #### [facility] ([id number]) [address] [facility], [address] [place] [address] Lymphocytes/100 WBC (Bld) 3.6 % Normal [facility] Comment on above: Performed By: #### C SHARATH, CMP, 1987-12, FEPR, 2276-4, 2284-8, 78815-3, 2132-9, 50628-4, 43832-8, 5130-0, 11456-9, 73132-2, 28480-0, 3357-1, 8092-9, 49582-8, 90288-3, 56105-3, 28542-9, 78088-4 #### [facility] ([id number]) [address] [facility], [address] [place] [address] MCH (RBC) [Entitic mass] 28.1 pg Normal 27-34 [facility] Comment on above: Performed By: #### C SHARATH, KELVIN, 1987-12, FEPR, 227-4, 2284-8, 16758-2, 2132-9, 95237-3, 72509-8, 5130-0, 79257-3, 71036-8, 01767-9, 3357-1, 8092-9, 00313-3, 46445-7, 79172-9, 17045-2, 56615-9 #### [facility] ([id number]) [address] [facility], [address] [place] [address] MCHC (RBC) [Mass/Vol] 32.9 g/dL Normal 32-36 [facility] Comment on above: Performed By: #### C SHARATH, CMP, 1987-12, FEPR, 2276-4, 2284-8, 21765-4, 2132-9, 73150-1, 75172-5, 5130-0, 51514-3, 03704-2, 55139-7, 3357-1, 8092-9, 39996-5, 20150-9, 34414-3, 62212-3, 18820-5 #### [facility] ([id number]) [address], [address] [place] [address] MCV (RBC) [Entitic vol] 85 fL Normal 80-100 P [facility] Comment on above: Performed By: #### C SHARATH, KELVIN, 1987-12, FEPR, 2276-4, 2284-8, 99555-9, 2132-9, 49425-5, 05077-7, 5130-0, 29360-8, 74712-9, 34661-7, 3357-1, 8092-9, 15496-7, 89068-8, 98017-0, 51343-4, 86195-9 #### [facility] ([id number]) [address] [facility], [address] [place] [address] Monocytes (Bld) [#/Vol] 0.1 10*3/uL Normal 0-0.9 [facility] Comment on above: Performed By: #### C SHARATH, KELVIN, 1987-12, FEPR, 2275-4, 2284-8, 35719-3, 2132-9, 77253-5, 64669-3, 5130-0, 72109-0, 97095-8, 14371-5, 3357-1, 8092-9, 03338-2, 38253-6, 84645-8, 27509-9, 40720-2 #### [facility] ([id number]) [address], [address] [place] [address] Monocytes/100 WBC (Bld) 1.0 % Normal P [facility] Comment on above: Performed By: #### C SHARATH, CMP, 1987-12, FEPR, 227-4, 2284-8, 21099-8, 2132-9, 51354-0, 34319-6, 5130-0, 86468-6, 29971-5, 47868-4, 3357-1, 8092-9, 50917-9, 82263-1, 35430-6, 39752-1, 99293-6 #### [facility] ([id number]) [address], [address] [place] [address] Neutrophils/100 WBC (Bld) 93.3 % Normal [facility] Comment on above: Performed By: #### C SHARATH, CMP, 1987-12, FEPR, 2276-4, 2284-8, 26940-3, 2132-9, 87605-1, 24602-3, 5130-0, 74404-9, 30254-5, 62827-4, 3357-1, 8092-9, 26796-9, 27947-6, 17976-2, 38532-5, 31868-5 #### [facility] ([id number]) [address], [address] [place] [address] Platelet mean volume (Bld) [Entitic vol] 6.3 fL Low 7-12 [facility] Comment on above: Performed By: #### C BCA, CMP, 1987-12, FEPR, 2275-4, 2284-8, 81335-7, 2132-9, 08697-6, 56278-5, 5130-0, 07076-2, 62461-5, 84770-0, 3357-1, 8092-9, 07878-9, 32781-4, 24237-5, 74850-1, 17004-2 #### [facility] ([id number]) [address], [address] [place] [address] Platelets (Bld) [#/Vol] 917 10*3/uL High 150-450 [facility] Comment on above: Performed By: #### C BCA, CMP, 1987-12, FEPR, 227-4, 2284-8, 38691-2, 2132-9, 31570-1, 03200-7, 5130-0, 02668-2, 71749-3, 65518-7, 3357-1, 8092-9, 34465-4, 62870-8, 54544-6, 20526-6, 26360-9 #### [facility] ([id number]) [address], [address] [place] [address] RBC COUNT 3.07 X10E12/L Low 3.80-5.20 [facility] Comment on above: Performed By: #### C BCA, CMP, 1987-, FEPR, 2276-4, 2284-8, 28303-3, 2132-9, 60516-7, 29690-6, 5130-0, 43412-9, 23993-6, 30072-0, 3357-1, 8092-9, 65313-9, 92832-3, 29732-6, 43545-1, 02147-2 #### [facility] ([id number]) [address], [address] [place] [address] WBC (Bld) [#/Vol] 11.1 10*3/uL High 4.0-11.0 [facility] Comment on above: Performed By: #### C BCA, CMP, 1987-12, FEPR, 2276-4, 2284-8, 03740-7, 2132-9, 47561-4, 90901-3, 5130-0, 07477-1, 44748-0, 33643-3, 3357-1, 8092-9, 55182-5, 45089-5, 98909-8, 56256-0, 95496-9 #### [facility] ([id number]) [address], [address] [place] [address] CBC auto differentialon 08-27 0-2023 Basophils (Bld) [#/Vol] 0.0 10*3/uL [facility] Basophils/100 WBC (Bld) 0.2 % [facility] Eosinophils (Bld) [#/Vol] 0.0 10*3/uL [facility] Eosinophils/100 WBC (Bld) 0.0 % [facility] Erythrocyte distribution width (RBC) [Ratio] 14.4 % 11.5 - 15.0 % [facility] Hematocrit (Bld) [Volume fraction] 27.8 % Low 35 - 47 % [facility] Hemoglobin (Bld) [Mass/Vol] 9.1 g/dL Low 11.7 - 15.5 g/dL [facility] Interpretation and review of laboratory results Abnormal [facility] Lymphocytes (Bld) [#/Vol] 0.4 10*3/uL Low [facility] Lymphocytes/100 WBC (Bld) 3.3 % [facility] MCH (RBC) [Entitic mass] 27.8 pg 27 - 34 pg [facility] MCHC (RBC) [Mass/Vol] 32.7 g/dL 32 - 3 6 g/dL [facility] MCV (RBC) [Entitic vol] 85 fL 80 - 100 fL [facility] Monocytes (Bld) [#/Vol] 0.1 10*3/uL [facility] Monocytes/100 WBC (Bld) 1.0 % [facility] Neutrophils (Bld) [#/Vol] 11.5 10*3/uL High [facility] Neutrophils/100 WBC (Bld) 95.5 % [facility] Platelet mean volume (Bld) [Entitic vol] 6.2 fL Low 7 - 12 fL [facility] Platelets (Bld) [#/Vol] 924 10*3/uL High [facility] RBC (Bld) [#/Vol] 3.27 10*6/uL Low [facility] WBC corrected for nucl RBC Auto (Bld) [#/Vol] 12.1 High [facility] Basophils (Bld) [#/Vol] 0.2 10*3/uL [facility] Basophils/100 WBC (Bld) 2.1 % [facility] Eosinophils (Bld) [#/Vol] 0.0 10*3/uL [facility] Eosinophils/100 WBC (Bld) 0.0 % [facility] Erythrocyte distribution width (RBC) [Ratio] 14.6 % 11.5 - 15.0 % [facility] Hematocrit (Bld) [Volume fraction] 26.2 % Low 35 - 47 % [facility] Hemoglobin (Bld) [Mass/Vol] 8.6 g/dL Low 11.7 - 15.5 g/dL [facility] Interpretation and review of laboratory results Abnormal [facility] Lymphocytes (Bld) [#/Vol] 0.4 10*3/uL Low [facility] Lymphocytes/100 WBC (Bld) 3.6 % [facility] MCH (RBC) [Entitic mass] 28.1 pg 27 - 34 pg [facility] MCHC (RBC) [Mass/Vol] 32.9 g/dL 32 - 3 6 g/dL [facility] MCV (RBC) [Entitic vol] 85 fL 80 - 100 fL [facility] Monocytes (Bld) [#/Vol] 0.1 10*3/uL [facility] Monocytes/100 WBC (Bld) 1.0 % P [facility] Neutrophils (Bld) [#/Vol] 10.4 10*3/uL High [facility] Neutrophils/100 WBC (Bld) 93.3 % [facility] Platelet mean volume (Bld) [Entitic vol] 6.3 fL Low 7 - 12 fL [facility] Platelets (Bld) [#/Vol] 917 10*3/uL High [facility] RBC (Bld) [#/Vol] 3.07 10*6/uL Low [facility] WBC corrected for nucl RBC Auto (Bld) [#/Vol] 11.1 High [facility] COMPREHENSIVE METABOLIC PANE Cole 09-23-2023 Albumin [Mass/Vol] 3.0 g/dL Low 3.2-5.3 [facility] Comment on above: Performed By: #### C BCA, CMP, 1988-5, FEPR, 2276-4, 2284-8, 71306-2, 2132-9, 86008-6, 55691-2, 5130-0, 19520-5, 71162-0, 13185-2, 3357-1, 8092-9, 89657-8, 16508-3, 63293-8, 15162-7, 12891-6 #### [facility] ([id number]) [address], [address] [place] [address] ALP [Catalytic activity/Vol] 227 U/L High 39-130 [facility] Comment on above: Performed By: #### C BCA, CMP, 1987-12, FEPR, 2276-4, 2284-8, 73523-9, 2132-9, 57383-7, 61595-4, 5130-0, 45867-6, 81469-6, 10104-3, 3357-1, 8092-9, 24772-7, 83356-8, 76230-3, 08084-3, 11609-4 #### [facility] ([id number]) [address], [address] [place] [address] ALT [Catalytic activity/Vol] 11 U/L Normal 0-31 [facility] Comment on above: Performed By: #### C BCA, CMP, 1987-12, FEPR, 227-4, 2284-8, 14721-3, 2132-9, 91367-0, 58741-2, 5130-0, 67525-7, 79231-1, 56195-8, 3357-1, 8092-9, 47492-6, 19777-5, 19714-7, 48358-7, 91632-9 #### [facility] ([id number]) [address] [facility], [address] [place] [address] Anion gap [Moles/Vol] 13 mmol/L Normal 5-15 [facility] Comment on above: Performed By: #### C BCA, CMP, 1987-12, FEPR, 2276-4, 2284-8, 73741-4, 2132-9, 65892-9, 38096-3, 5130-0, 21555-2, 14298-8, 36058-9, 3357-1, 8092-9, 78419-7, 77324-5, 28598-5, 24055-4, 44721-0 #### [facility] ([id number]) [address], [address] [place] [address] AST [Catalytic activity/Vol] 12 U/L Normal 0-41 [facility] Comment on above: Performed By: #### C BCA, CMP, 1987-12, FEPR, 2276-4, 2284-8, 78123-1, 2132-9, 02677-9, 78317-6, 5130-0, 05258-9, 40706-5, 17348-7, 3357-1, 8092-9, 54067-9, 30409-0, 57755-1, 66577-7, 09223-9 #### [facility] ([id number]) [address] [facility], [address] [place] [address] Bilirubin [Mass/Vol] 0.6 mg/dL Normal 0.3-1.2 [facility] Comment on above: Performed By: #### C BCA, CMP, 1987-12, FEPR, 2275-4, 2284-8, 07773-2, 2132-9, 86165-6, 00795-1, 5130-0, 05875-2, 42401-7, 54770-0, 3357-1, 8092-9, 44758-9, 36281-3, 63690-8, 90467-7, 04585-8 #### [facility] ([id number]) [address] [facility], [address] [place] [address] Calcium [Mass/Vol] 8.6 mg/dL Normal 8.5-10.5 [facility] Comment on above: Performed By: #### C BCA, CMP, 1987-12, FEPR, 227-4, 2284-8, 97910-7, 2132-9, 20313-6, 32466-3, 5130-0, 64181-7, 74196-2, 96957-2, 3357-1, 8092-9, 50147-0, 93429-7, 52220-2, 53887-8, 23080-7 #### [facility] ([id number]) [address], [address] [place] [address] Chloride [Moles/Vol] 101 mmol/L Normal 98-109 [facility] Comment on above: Performed By: #### C BCA, CMP, 1987-12, FEPR, 2276-4, 2284-8, 11729-3, 2132-9, 70580-9, 64009-9, 5130-0, 50251-3, 18713-8, 80906-1, 3357-1, 8092-9, 61381-6, 78679-2, 34751-8, 37924-0, 97133-9 #### [facility] ([id number]) [address], [address] [place] [address] CO2 [Moles/Vol] 25 mmol/L Normal 22-32 [facility] Comment on above: Performed By: #### C BCA, CMP, 1987-12, FEPR, 2275-4, 2284-8, 22101-1, 2132-9, 18924-0, 87943-1, 5130-0, 61492-5, 40170-9, 19991-2, 3357-1, 8092-9, 36307-8, 83806-0, 28744-3, 88559-4, 00280-7 #### [facility] ([id number]) [address], [address] [place] [address] Creatinine [Mass/Vol] 0.49 mg/dL Normal 0.40-1.00 [facility] Comment on above: Result Comment: METH OD TRACEABLE TO IDMS STANDARD Performed By: #### C BCA, CMP, 1987-12, FEPR, 227-4, 2284-8, 14744-9, 2132-9, 76874-0, 03009-2, 5130-0, 81580-6, 32668-4, 81777-8, 3357-1, 8092-9, 38750-1, 75836-7, 83200-5, 14187-4, 49430-6 #### [facility] ([id number]) [address] [facility], [facility] [address] [place] [address] eGFR (CKD-EPI) NON-RACE DEPENDENT >90 Normal >59 [facility] Comment on above: Result Comment: Reported eGFR is based on the CKD-EPI 2020 equation that does not use a race coefficient. Performed By: #### C BCA, CMP, 1987-12, FEPR, 227-4, 2284-8, 54974-9, 2132-9, 02435-0, 00929-2, 5130-0, 63273-0, 50570-5, 73120-6, 3357-1, 8092-9, 41140-3, 11992-5, 03542-5, 59044-8, 27214-6 #### [facility] ([id number]) [address] [facility], [address] [address] Glucose [Mass/Vol] 141 mg/dL High 65-99 [facility] Comment on above: Performed By: #### C BCA, CMP, 1987-12, FEPR, 2275-4, 4-8, 79457-4, 2132-9, 92885-2, 69647-7, 5130-0, 60543-0, 88790-7, 64073-8, 3357-1, 8092-9, 94958-0, 03062-2, 31002-6, 84039-4, 12408-2 #### [facility] ([id number]) [address] [facility], [address] [place] [address] Potassium [Moles/Vol] 3.7 mmol/L Normal 3.5-5.0 [facility] Comment on above: Performed By: #### C BCA, CMP, 1987-12, FEPR, 2276-4, 2284-8, 77736-2, 2132-9, 99770-0, 80980-2, 5130-0, 96169-4, 90608-6, 94845-1, 3357-1, 8092-9, 33812-9, 96216-2, 99091-9, 86418-8, 26930-5 #### [facility] ([id number]) [address] [facility], [address] [place] [address] Protein [Mass/Vol] 6.9 g/dL Normal 6.0-8.0 [facility] Comment on above: Performed By: #### C BCA, CMP, 1987-12, FEPR, 2276-4, 2284-8, 20288-9, 2132-9, 82174-5, 64300-9, 5130-0, 78209-0, 31483-7, 74630-5, 3357-1, 8092-9, 03066-1, 80195-6, 35208-2, 49263-4, 26796-1 #### [facility] ([id number]) [address] [facility], [address] [place] [address] Sodium [Moles/Vol] 139 mmol/L Normal 134-146 [facility] Comment on above: Performed By: #### C BCA, CMP, 1987-12, FEPR, 2276-4, 2284-8, 23493-4, 2132-9, 88099-2, 47218-9, 5130-0, 62001-3, 46013-6, 10939-5, 3357-1, 8092-9, 42339-3, 69924-9, 39512-9, 73043-6, 17322-4 #### [facility] ([id number]) [address] [facility], [address] [place] [address] Urea nitrogen [Mass/Vol] 14 mg/dL Normal 5-27 [facility] Comment on above: Performed By: #### C BCA, CMP, 1987-12, FEPR, 2276-4, 2284-8, 57460-4, 2132-9, 12568-0, 77678-8, 5130-0, 53093-1, 28601-0, 78292-0, 3357-1, 8092-9, 49513-6, 49903-7, 01141-9, 26406-0, 15943-1 #### [facility] ([id number]) [address] [facility], [address] [place] [address] CRP [Mass/Vol]on 09-23-2023 C REACTIVE PROTEIN 13.3 mg/dL High 0.000-0.744 [facility] Comment on above: Performed By: #### C BCA, CMP, 1987-12, FEPR, 2276-4, 2284-8, 30528-7, 2132-9, 09285-4, 09744-4, 5130-0, 06474-6, 04289-9, 57068-0, 3357-1, 8092-9, 39983-7, 20408-8, 89088-3, 61898-7, 99623-3 #### [facility] ([id number]) [facility], [address] [place] [address] Centromere ABon 09-23-2023 Centromere protein B Ab Ql (S) [facility] Comment on above: CLIA ID [id number] Centromere protein B Ab Ql ( S)on 09-23-2023 Interpretation and review of laboratory results Abnormal [facility] CENTROMERE ANTIBODY >8.0 High <1.0 [facility] Comment on above: Performed By: #### C BCA, CMP, 1987-12, FEPR, 2276-4, 2284-8, 66417-8, 2132-9, 63335-2, 39877-6, 5130-0, 45890-0, 25230-8, 92292-5, 3357-1, 8092-9, 92641-1, 88471-6, 63716-3, 01404-0, 60044-9 #### [facility] ([id number]) [address] [place] [address], [address] [place] [address] Chromatin Ab Qlon 09-23-2023 CHROMATIN AB IGG 0.4 AI Normal <1.0 [facility] Comment on above: Performed By: #### C BCA, CMP, 1988-5, FEPR, 2276-4, 2284-8, 26782-3, 2132-9, 58760-6, 57838-8, 5130-0, 24934-7, 15046-8, 62585-6, 3357-1, 8092-9, 63956-3, 29409-9, 27955-3, 90397-0, 99143-8 #### [facility] ([id number]) [address] [place] [address], [address] [place] [address] Clinical Pathologyon 024 Clinical Pathology Normal [facility] Comment on above: Result Comment: [facility] [employer] [facility] [address] [place] [address] Clinical Pathology Report Patient Name:JOSE DAVID:1945 (Age: 78)Gender:FTaken:4Reported:09/27/2023hysician(s):Olga Pan M.D. ([phone])Copy To: Rec. #:[id number]: #[id number] Final Pathologic Diagnosis Hypoalbuminemia with increase in acute phase reactants. No monoclonal bands identified. Report Electronically Signed Out df/4Dkevin Bains MD Interpretation performed at [facility], [address] [place] [address], License number: [id number]. Clinical History E53.8, H53.8, R29.90. SERUM PROTEIN ELECTROPHORESIS SAMPLE NO: [id number] ELECTROPHORETIC FRACTION CONCENTRATIONS (g/dL) PATIENT REFERENCE RANGE [...] IgA : 180 IgM : 285 Free [place]: 2.91 Free Lambda: 2.38 Free [place]/Lambda ratio: 1.22 Specimen(s) Received 1: Serum Protein Electrophoresis 2: Serum IEP Fee Codes(s): 1; 87552-69 2; 74412-56 Clinical Pathology Blood Sme ar Reviewon 09-23-2023 Clinical Pathology Blood Smear Review Normal [facility] Comment on above: Result Comment: [facility] [employer] [facility] [facility] [address] [place] [address] Clinical Pathology Report Patient Name:JOSE DAVID:1945 (Age: 78)Gender:FTaken:09/23/2023eported:09/26/2023hysician(s):Olga Pan M.D. ([phone])Copy To: Rec. #:[id number]: #[id number] Final Pathologic Diagnosis Peripheral blood smear: Neutrophilic [...] Out hn/09/26/2023Og Martinez M.D. Interpretation performed at [facility], [address] [place] [address], License number: [id number]. Clinical History R29.9. BLOOD SMEAR EVALUATION CBC (09/23/2023 0818): WBC = 12.1 X10E9/L; HGB = 9.1 g/dL; HCT = 27.8%; MCV = 85 fL; PLT = 924 X10E9/L OTHER LAB DATA: Noncontributory. BLOOD SMEAR: Leukocytes: Neutrophilic leukocytosis with cytotoxic changes and lymphocytopenia. Erythrocytes: Moderate normocytic normochromic anemia. Platelets: Thrombocytosis. Specimen(s) Received Blood Smear Review Fee Codes(s): 1; 14466 Cobalamin (Vitamin B12) [Mas s/Vol]on 09-23-2023 [facility] Comprehensive metabolic pane cole 09-23-2023 Albumin [Mass/Vol] 3.0 g/dL Low 3.2 - 5.3 g/dL [facility] ALP [Catalytic activity/Vol] 227 U/L High 39 - 130 U/L [facility] ALT No additional P-5'-P [Catalytic activity/Vol] 11 U/L 0 - 31 U/L [facility] Anion gap [Moles/Vol] 13 mmol/L 5 - 15 mmol/L [facility] AST [Catalytic activity/Vol] 12 U/L 0 - 41 U/L [facility] Bilirubin [Mass/Vol] 0.6 mg/dL 0.3 - 1 .2 mg/dL [facility] Calcium [Mass/Vol] 8.6 mg/dL 8.5 - 10. 5 mg/dL [facility] Chloride [Moles/Vol] 101 mmol/L 98 - 10 9 mmol/L [facility] CO2 [Moles/Vol] 25 mmol/L 22 - 32 mmol/L [facility] Creatinine [Mass/Vol] 0.49 mg/dL 0.40 - 1.00 mg/dL [facility] Comment on above: METHOD TRACEABLE TO IDAZ STANDARD eGFR (CKD-EPI)non-race dependent - PINF [facility] Comment on above: Reported eGFR is based on the CKD-EPI 2020 equation that does not use a race coefficient. Glucose [Mass/Vol] 141 mg/dL High 65 - 99 mg/dL [facility] Potassium [Moles/Vol] 3.7 mmol/L 3.5 - 5.0 mmol/L [facility] Protein [Mass/Vol] 6.9 g/dL 6.0 - 8.0 g/dL [facility] Sodium [Moles/Vol] 139 mmol/L 134 - 146 mmol/L [facility] Urea nitrogen [Mass/Vol] 14 mg/dL 5 - 27 mg/dL [facility] DNA double strand Ab Qn (S)o n 09-23-2023 DOUBLE STRANDED DNA 1 IU/ML Normal <5 [facility] Comment on above: Result Comment: Interpretation-------- <5 Negative 5-9 Indeterminate >9 Positive Performed By: #### C KELVIN EARLY, 1987-12, FEPR, 2276-4, 2284-8, 57952-3, 2132-9, 04979-7, 80508-3, 5130-0, 73520-7, 32827-0, 34661-6, 3357-1, 8092-9, 43836-0, 53364-7, 21208-5, 26860-7, 37243-0 #### [facility] ([id number]) [address] [place] [address], [address] [place] [address] Direct Coombson 09-23-2023 Polyspecific HENRRY Negative [facility] ESR Photometric method (Bld) [Velocity]on 09-23-2023 Interpretation and review of laboratory results Abnormal [facility] ESR, ERYTHROCYTE SEDIMENTATION RATE 114 mm/h High 0-30 [facility] Comment on above: Performed By: #### C SHARATH, CMP, 1987-12, FEPR, 2275-4, 2284-8, 43467-1, 2132-9, 67968-6, 34356-7, 5130-0, 91801-0, 65350-2, 94245-2, 3357-1, 8092-9, 97690-8, 48980-3, 45269-2, 04516-2, 29654-8 #### [facility] ([id number]) [address] [facility], [address] [place] [address] Erythrocyte Sedimentation Ra te (ESR)on 09-23-2023 ESR Photometric method (Bld) [Velocity] 114 mm/h High 0 - 30 mm/h [facility] FERRITINon 09-23-2023 Ferritin [Mass/Vol] 478 ng/mL High 11-307 [facility] Comment on above: Performed By: #### C BCA, CMP, 1987-12, FEPR, 2276-4, 2284-8, 52468-7, 2132-9, 40356-0, 68957-3, 5130-0, 68455-1, 78796-1, 55306-0, 3357-1, 8092-9, 16000-0, 75149-9, 14046-3, 04741-4, 14484-3 #### [facility] ([id number]) [address] [place] [address], [address] [place] [address] FLOW CYTOMETRYon 09-23-2023 FLOW CYTOMETRY SEE SEPARATE REPORT, REVIEWED BY PATHOLOGIST Normal [facility] Comment on above: Performed By: #### C BCA, CMP, 1987-12, FEPR, 2276-4, 2284-8, 36573-1, 2132-9, 29392-5, 20313-4, 5130-0, 57334-6, 02308-1, 33561-1, 3357-1, 8092-9, 47291-7, 62961-8, 06556-5, 58088-7, 27424-3 #### [facility] ([id number]) [address] [place] [address], [address] [place] [address] Ferritinon 09-23-2023 Ferritin [Mass/Vol] 478 ng/mL High 11 - 307 ng/mL [facility] Ferritin [Mass/Vol]on 2023 Interpretation and review of laboratory results Abnormal [facility] Folateon 01-30-2024 Folate [Mass/Vol] 13.0 ng/mL 5.8 - PINF ng/mL [facility] Comment on above: NEW REFERENCE RANGE Folate [Mass/Vol]on 09-23-19 24 [facility] FOLIC ACID 13.0 ng/mL Normal >5.8 [facility] Comment on above: Result Comment: NEW REFERENCE RANGE Performed By: #### C SHARATH, KELVIN, 1987-12, FEPR, 2276-4, 2284-8, 11074-5, 2132-9, 86189-6, 09825-0, 5130-0, 69247-5, 48596-7, 87761-5, 3357-1, 8092-9, 93287-5, 69493-0, 27396-8, 38665-6, 34906-7 #### [facility] ([id number]) [address] [place] [address], [address] [place] [address] Haptoglobinon 09-23-2023 Haptoglobin Nephelometry [Mass/Vol] 613 mg/dL High 32 - 228 mg/dL [facility] Haptoglobin Nephelometry [Ma ss/Vol]on 09-23-2023 Interpretation and review of laboratory results Abnormal [facility] HAPTOGLOBIN 613 mg/dL High 32-228 [facility] Comment on above: Performed By: #### C SHARATH, KELVIN, 1987-12, FEPR, 2276-4, 2284-8, 48435-9, 2131-9, 77744-0, 59584-9, 5130-0, 96874-2, 52334-5, 75093-2, 3357-1, 8092-9, 44544-9, 17608-7, 28254-2, 46298-8, 42483-6 #### [facility] ([id number]) [address] [place] [address], [address] [place] [address] Hepatitis panel, acuteon HAV IgM IA Ql Non-Reactive Non-Reactiv e^Non-React harshil [facility] HBV core IgM IA Ql Negative Negative^ Ne gative [facility] HBV surface Ag IA Ql Negative Negativ e^Ne gative [facility] HCV Ab IA Ql Non-Reactive Non-Reactiv e^Non-React harshil [facility] Comment on above: If recent infection suspected, recommend repeat testing (>2 months). Vilitp-mw-gvpoqj ratio is <0.80. [facility] Homocysteine [Moles/Vol]on 0 09-23-2023 HOMOCYSTEINE 9.29 mcmol/L Normal 3.36-20.44 [facility] Comment on above: Performed By: #### C BCA, CMP, 1987-12, FEPR, 2276-4, 2284-8, 57994-0, 2132-9, 79680-9, 31966-1, 5130-0, 56723-2, 61817-3, 36691-2, 3357-1, 8092-9, 71763-1, 78997-0, 79419-0, 97746-8, 45463-6 #### [facility] ([id number]) [address] [place] [address], [address] [place] [address] [facility] Homocysteine totalon 024 Homocysteine [Moles/Vol] 9.29 umol/L [facility] IMMUNOELECTROPHORESIS FOR TH ERAPY MONITORINGon 09-23-2023 FREE KECIA/LAMBD RATIO 1.22 Normal 0.26-1.65 [facility] Comment on above: Performed By: #### C BCA, CMP, 1987-12, FEPR, 2276-4, 2284-8, 45939-7, 2132-9, 61984-5, 39529-9, 5130-0, 30674-1, 56605-2, 21006-6, 3357-1, 8092-9, 79299-4, 06907-9, 06807-1, 95033-6, 46629-6 #### [facility] ([id number]) [address] [place] [address], [address] [place] [address] FREE KAPPA LT CHAINS 2.91 mg/dL High 0.33-1.94 [facility] Comment on above: Performed By: #### C BCA, CMP, 1987-12, FEPR, 2276-4, 2284-8, 01695-2, 2132-9, 10992-6, 39449-0, 5130-0, 95625-8, 83520-4, 57714-6, 3357-1, 8092-9, 49658-7, 71218-4, 84505-4, 25906-1, 14563-8 #### [facility] ([id number]) [address], [address] [place] [address] FREE LAMBDA LT CHAINS 2.38 mg/dL Normal 0.57-2.63 [facility] Comment on above: Performed By: #### C SHARATH, CMP, 1987-12, FEPR, 2276-4, 2284-8, 48181-0, 2132-9, 55678-6, 01652-0, 5130-0, 01292-6, 67587-4, 16436-0, 3357-1, 8092-9, 72658-5, 81330-6, 40293-3, 42493-6, 14549-4 #### [facility] ([id number]) [address], [address] [place] [address] IgA [Mass/Vol] 180 mg/dL Normal 68-378 [facility] Comment on above: Performed By: #### C SHARATH, CMP, 1987-12, FEPR, 2276-4, 2284-8, 90588-3, 2132-9, 11171-7, 55218-8, 5130-0, 56796-8, 29301-7, 00512-3, 3357-1, 8092-9, 28953-0, 53349-2, 43234-7, 84092-6, 28916-6 #### [facility] ([id number]) [address], [address] [place] [address] IgG [Mass/Vol] 992 mg/dL Normal 635-1741 [facility] Comment on above: Performed By: #### C BCA, CMP, 1987-12, FEPR, 2276-4, 2284-8, 04887-4, 2132-9, 15250-0, 13084-4, 5130-0, 11296-9, 51167-1, 12331-1, 3357-1, 8092-9, 45354-4, 08631-0, 26297-5, 08605-9, 57250-4 #### [facility] ([id number]) [address] [facility], [address] [place] [address] IgM [Mass/Vol] 285 mg/dL High 45-281 [facility] Comment on above: Performed By: #### C BCA, CMP, 1987-12, FEPR, 2276-4, 2284-8, 92065-2, 2132-9, 91809-3, 03262-3, 5130-0, 48381-0, 81339-9, 91665-9, 3357-1, 8092-9, 49429-4, 79488-4, 27593-0, 48603-1, 10323-3 #### [facility] ([id number]) [address] [facility], [address] [place] [address] IMMUNE PROFILE INTERP SEE SEPARATE REPORT Normal [facility] Comment on above: Performed By: #### C BCA, CMP, 1987-12, FEPR, 2276-4, 2284-8, 53661-5, 2132-9, 18044-0, 33309-8, 5130-0, 83061-2, 50724-6, 84491-4, 3357-1, 8092-9, 73303-9, 29651-0, 83542-4, 74826-3, 75596-9 #### [facility] ([id number]) [address] [facility], [address] [place] [address] IRON PROFILEon 09-23-2023 Iron [Mass/Vol] 25 ug/dL Low 50-170 [facility] Comment on above: Performed By: #### C BCA, CMP, 1987-12, FEPR, 2276-4, 2284-8, 64073-6, 2132-9, 35502-8, 37686-9, 5130-0, 71695-9, 67582-4, 38840-7, 3357-1, 8092-9, 66986-9, 28746-1, 78112-5, 86131-7, 06288-3 #### [facility] ([id number]) [facility], [address] [place] [address] IRON BINDING 179 ug/dL Low 250-425 [facility] Comment on above: Performed By: #### C BCA, CMP, 1987-12, FEPR, 2276-4, 2284-8, 14077-5, 2132-9, 75744-2, 27538-9, 5130-0, 61280-0, 88702-0, 10951-4, 3357-1, 8092-9, 36242-1, 71132-4, 97733-8, 76584-0, 21455-7 #### [facility] ([id number]) [address] [place] [address], [address] [place] [address] IRON SATURATION 14 % SATURATION Low 15-50 [facility] Comment on above: Performed By: #### C BCA, CMP, 1987-12, FEPR, 2276-4, 2284-8, 60960-9, 2132-9, 92524-7, 94661-4, 5130-0, 98930-6, 26386-0, 10994-5, 3357-1, 8092-9, 15043-1, 95774-6, 26788-8, 24542-1, 85762-9 #### [facility] ([id number]) [address] [place] [address], [address] [place] [address] Iron and TIBCon 09-23-2023 Interpretation and review of laboratory results Abnormal [facility] Iron [Mass/Vol] 25 ug/dL Low 50 - 170 ug/dL [facility] Iron binding capacity [Mass/Vol] 179 ug/dL Low 250 - 425 ug/dL [facility] Iron saturation [Mass fraction] 14 Low [facility] JAK2 gene p.[id number] Molgen Ql (Bld/Tiss)on 09-23-2023 JAK2 V617F MUTATION, BLOOD SEE COMMENTS 09/26/2023 10:21 AM Normal [facility] Comment on above: Result Comment: NOTE Test Result Flag Unit RefValue ----- JAK2 V617F Mutation Detection, B JAK2 Result see interpretation JAK2 V617F Mutation Detection, B See Note Peripheral blood, JAK2 V617F mutation analysis: Negative for JAK2 V617F. A negative [id number] test result does not exclude the possibility [...] been determined at 0.06% (see [facility] Interpretive Handbook for method details). This test was developed and its performance characteristics determined by [facility] in a manner consistent with CLIA requirements. This test has not been cleared or approved by the U.S. Food and Drug Administration. Test Performed by: [address] [address] Pinsetter Mechanic Helper: Thierry Duran M.D. Ph.D.; CLIA# [id number] Performed By: #### C BCA, CMP, 1987-, FEPR, 2276-4, 2284-8, 52835-9, 2132-9, 58379-5, 36187-6, 5130-0, 54781-2, 16757-2, 35867-1, 3357-1, 8092-9, 34550-5, 37650-0, 49259-9, 76521-1, 13047-8 #### [facility] ([id number]) [address] [place] [address], [address] [place] [address] Tiki 1 AB IGGon 09-23-2023 Anileridine Ql (U) NINF [facility] LDHon 09-23-2023 LDH [Catalytic activity/Vol] 140 U/L 100 - 235 U/L [facility] LDH [Catalytic activity/Vol] on 09-23-2023 [facility] LDH 140 U/L Normal 100-235 [facility] Comment on above: Performed By: #### C BCA, CMP, 1987-12, FEPR, 6-4, 2284-8, 70360-6, 2132-9, 13471-9, 42004-5, 5130-0, 27963-6, 04974-3, 96572-8, 3357-1, 8092-9, 50620-3, 19126-1, 77404-9, 80320-2, 40993-0 #### [facility] ([id number]) [address] [place] [address], [address] [place] [address] Methylmalonate [Moles/Vol]on 09-23-2023 MMA QN 0.23 umol/L Normal <=0.40 [facility] Comment on above: Result Comment: NOTE This test was developed and its performance characteristics determined by [facility] [place] ([facility]). It has not been cleared or approved by the FDA. [facility] is regulated under CLIA as qualified to perform high-complexity testing. This test is used for clinical purposes. It should not be regarded as investigational or for research. Test Performed By: [place] [address] Public Relations Analyst: Meño Hernandez III, M.D. CLIA #[id number] Narrative diagnostic report Molgen Yaw (Bld/Tiss) [Interp]on 09-23-2023 BCR/ABL PCR w/Reflex SEE COMMENTS 2023 04:24 PM Normal [facility] Comment on above: Result Comment: NOTE Test Result Flag Unit RefValue ----- BCR/ABL1 Reflex, Qual/Quant Specimen Type EDTA WHOLE BLOOD BCR/ABL1 Reflex Result see interpretation Interpretation See Note Peripheral blood, BCR/ABL1 mRNA analysis, qualitative: Negative. No BCR/ABL1 mRNA transcripts were detected. Method summary: The presence or absence of BCR/ABL1 mRNA transcripts was evaluated using a qualitative, reverse eyelet maker PCR-based assay. The assay detects nearly all published and theoretical BCR/ABL1 fusion forms including the common e13/e14-a2 (p210) and e1-a2 (p190) transcripts, as well as other rarer variants (e.g. e19-a2 (p230), e13/e14-a3, e1-a3, etc.). The limit of detection for this assay is 0.1%. Please contact the lab at [phone] with questions or if additional testing is required. See [facility] Test Catalog for additional method details. Signing Pathologist: Ammon Titus M.D. (Jane), Ph.D. ADDITIONAL INFORMATION This test was developed and its performance characteristics determined by [facility] in a manner consistent with CLIA requirements. This test has not been cleared or approved by the U.S. Food and Drug Administration. Test Performed by: [place] [address] Pinsetter Mechanic Helper: Thierry Duran M.D. Ph.D.; CLIA# [id number] Neutrophil cytoplasmic Ab IF Ql (S)on 09-23-2023 ANCA See Below Normal [facility] Comment on above: Result Comment: NOTE TEST [...] results and clinical correlation. Test Performed By: [facility] [place] [address] [place] [address] Public Relations Analyst: Meño Hernandez III, M.D. CLIA #[id number] No Panel Informationon 09-23 [facility] Interpretation and review of laboratory results Abnormal [facility] Nuclear Ab IA Ql (S)on 09-23 Interpretation and review of laboratory results Abnormal [facility] SILVIA Screen w/reflex Positive Abnormal NEG [facility] Comment on above: Result Comment: Testing performed using multiplex flow immunoassay. Eleven different antigens associated with systemic autoimmune diseases (dsDNA,Sm,Sm/VOCATIONAL TECHNICAL EDUCATION TEACHER,VOCATIONAL TECHNICAL EDUCATION TEACHER,Chromatin, SSA,SSB,Tiki-1,Scl70,Ribo P,Centromere B) are included in this screening test. Performed By: #### C BCA, CMP, 1988-5, FEPR, 2276-4, 2284-8, 08664-4, 2132-9, 04276-7, 71808-3, 5130-0, 47784-4, 02041-8, 52132-4, 3357-1, 8092-9, 62814-3, 81134-3, 01914-6, 61471-5, 19419-1 #### [facility] ([id number]) [address] [place] [address], [address] [place] [address] comment (Bld) [Interp]on 09-23-2023 STAFF REVIEW NOTE Normal [facility] Comment on above: Result Comment: [facility] [address] [place] [address] Clinical Pathology Report Patient Name:JOSE DAVID:1945 (Age: 78)Gender:FTaken:4Reported:09/26/2023hysician(s):Ogla Pan M.D. ([phone])Copy To: Rec. #:[id number]: #[id number] Final Pathologic Diagnosis Peripheral blood smear: Neutrophilic [...] Out hna/09/26/2023Og Martinez M.D. Interpretation performed at [facility], [address] [place] [address], License number: [id number]. Clinical History R29.9. BLOOD SMEAR EVALUATION CBC (09/23/2023 0818): WBC = 12.1 X10E9/L; HGB = 9.1 g/dL; HCT = 27.8%; MCV = 85 fL; PLT = 924 X10E9/L OTHER LAB DATA: Noncontributory. BLOOD SMEAR: Leukocytes: Neutrophilic leukocytosis with cytotoxic changes and lymphocytopenia. Erythrocytes: Moderate normocytic normochromic anemia. Platelets: Thrombocytosis. Specimen(s) Received Blood Smear Review Fee Codes(s): 1; 58499 Performed By: #### C SHARATH, CMP, 1987-12, FEPR, 6-4, 2284-8, 95799-0, 2132-9, 72895-9, 32363-1, 5130-0, 64896-5, 65943-2, 21589-9, 3357-1, 8092-9, 75549-7, 61021-0, 13967-3, 65280-7, 73029-6 #### [facility] ([id number]) [address] [place] [address], [address] [place] [address] VOCATIONAL TECHNICAL EDUCATION TEACHER AB IgGon 09-23-2023 Ribonucleoprotein extractable nuclear IgG Qn (S) [facility] Comment on above: CLIA ID [id number] Rheumatoid factoron 09-23-19 24 Rheumatoid factor Nephelometry Qn (S) 21 High [facility] Rheumatoid factor Nephelomet ry Qn (S)on 09-23-2023 Interpretation and review of laboratory results Abnormal [facility] RHEUMATOID FACTOR 21 IU/mL High <20 [facility] Comment on above: Performed By: #### C BCA, CMP, 1987-12, FEPR, 2276-4, 2284-8, 52463-6, 2132-9, 85387-4, 77283-9, 5130-0, 70605-2, 01239-8, 58629-0, 3357-1, 8092-9, 39470-0, 72455-2, 13668-2, 20046-0, 29570-3 #### [facility] ([id number]) [address], [address] [place] [address] Ribonucleoprotein extractabl e nuclear IgG Qn (S)on 09-23-2023 VOCATIONAL TECHNICAL EDUCATION TEACHER ANTIBODY IGG <0.2 Normal <1.0 [facility] Comment on above: Performed By: #### C SHARATH, CMP, 1987-12, FEPR, 2275-4, 2283-8, 27888-9, 213-9, 17939-0, 61920-4, 5130-0, 60854-6, 87721-6, 30582-8, 3357-1, 8092-9, 44525-7, 95111-2, 17641-9, 85460-8, 79198-4 #### [facility] ([id number]) [address] [place] [address], [address] [place] [address] Ribosomal P IgG Qn (S)on RIBOSOME P ANTIBODY <0.2 Normal <1.0 [facility] Comment on above: Performed By: #### C SHARATH, CMP, 1987-12, FEPR, 2275-, 2283-8, 47945-7, 2131-9, 35726-0, 32680-9, 5130-0, 95958-4, 00711-4, 25565-6, 3357-1, 8092-9, 00529-3, 04734-8, 49718-1, 51857-9, 78333-4 #### [facility] ([id number]) [address], [address] [place] [address] SCL-70 extractable nuclear A b Ql (S)on 09-23-2023 SCL 70 ANTIBODY <0.2 Normal <1.0 [facility] Comment on above: Performed By: #### C SHARATH, CMP, 1987-12, FEPR, 2275-4, 4-8, 04546-2, 2132-9, 68879-8, 47815-4, 5130-0, 28550-8, 18163-4, 88474-6, 3357-1, 8092-9, 22831-9, 39255-9, 61488-0, 41766-4, 12083-7 #### [facility] ([id number]) [address] [facility], [address] [place] [address] SERUM PROTEIN ELECTROPHORESI Son 09-23-2023 Albumin [Mass/Vol] 2.5 g/dL Low 3.4-5.3 [facility] Comment on above: Performed By: #### C BCA, CMP, 1987-12, FEPR, 2275-4, 2284-8, 12380-0, 2132-9, 68494-3, 08672-8, 5130-0, 35325-0, 78075-3, 48198-3, 3357-1, 8092-9, 16408-9, 82703-6, 12184-1, 95283-3, 74520-7 #### [facility] ([id number]) [address] [facility] [facility], [address] [place] [address] ALPHA 1 GLOBULIN 0.6 g/dL High 0.1-0.4 [facility] Comment on above: Performed By: #### C BCA, CMP, 1987-12, FEPR, 2275-4, 4-8, 12560-7, 2132-9, 08996-5, 61596-2, 5130-0, 99244-9, 89199-0, 62889-8, 3357-1, 8092-9, 59709-5, 90359-3, 38448-4, 69674-7, 51929-0 #### [facility] ([id number]) [address] [facility], [address] [place] [address] ALPHA 2 GLOBULIN 1.2 g/dL High 0.4-1.1 [facility] Comment on above: Performed By: #### C BCA, CMP, 1987-12, FEPR, 2275-4, 228-8, 22728-1, 2132-9, 05679-2, 64592-0, 5130-0, 37987-6, 27268-1, 65844-6, 3357-1, 8092-9, 66173-0, 75969-6, 79944-3, 31544-2, 02238-7 #### [facility] ([id number]) [address], [address] [place] [address] BETA GLOBULIN 0.8 g/dL Normal 0.5-1.2 [facility] Comment on above: Performed By: #### C BCA, CMP, 1987-12, FEPR, 2276-4, 2284-8, 81510-1, 2132-9, 21135-6, 29605-6, 5130-0, 96415-8, 37781-1, 94114-1, 3357-1, 8092-9, 23427-4, 39836-2, 86843-5, 11439-4, 51763-1 #### [facility] ([id number]) [address], [address] [place] [address] GAMMA GLOBULIN 1.0 g/dL Normal 0.5-1.6 [facility] Comment on above: Performed By: #### C BCA, CMP, 1987-12, FEPR, 2276-4, 2284-8, 52307-8, 2132-9, 84983-6, 87339-0, 5130-0, 05190-4, 69822-2, 45633-0, 3357-1, 8092-9, 32978-9, 89101-0, 91572-7, 59545-5, 38427-0 #### [facility] ([id number]) [address], [address] [place] [address] PROT. ELECTROPHORESIS INTERP SEE SEPARATE REPORT Normal [facility] Comment on above: Performed By: #### C BCA, CMP, 1987-12, FEPR, 2276-4, 2284-8, 96978-1, 213-9, 24475-0, 52608-4, 5130-0, 08222-2, 42054-0, 28825-6, 3357-1, 8092-9, 87282-5, 02496-6, 75887-1, 29518-0, 42719-3 #### [facility] ([id number]) [address] [facility], [address] [place] [address] Protein [Mass/Vol] 6.1 g/dL Normal 6.0-8.0 [facility] Comment on above: Performed By: #### C BCA, CMP, 1987-12, FEPR, 2275-4, 228-8, 99287-5, 9, 08764-0, 64469-3, 5130-0, 10562-3, 23089-9, 89875-3, 3357-1, 8092-9, 86475-4, 43409-9, 38692-0, 76232-1, 37682-8 #### [facility] ([id number]) [address] [facility], [address] [place] [address] SSA antibodyon 09-23-2023 Sjogrens syndrome-A extractable nuclear Ab Qn (S) [facility] Comment on above: CLIA ID [id number] SSB Antibodyon 09-23-2023 Sjogrens syndrome-B extractable nuclear IgG Qn (S) [facility] Comment on above: CLIA ID [id number] Scleroderma antibodyon 09-23 SCL-70 extractable nuclear Ab Ql (S) [facility] Comment on above: CLIA ID [id number] Sjogrens syndrome-A extracta ble nuclear Ab Qn (S)on 09-23-2023 SSA ANTIBODY <0.2 Normal <1.0 [facility] Comment on above: Performed By: #### C BCA, CMP, 1987-12, FEPR, 2276-4, 2284-8, 48342-9, 2131-9, 75818-8, 28429-2, 5130-0, 45338-2, 81726-9, 69219-8, 3357-1, 8092-9, 47926-6, 22387-5, 65942-6, 34165-9, 51331-4 #### [facility] ([id number]) [address] [facility] [facility], [address] [place] [address] Sjogrens syndrome-B extracta ble nuclear IgG Qn (S)on 09-23-2023 SSB ANTIBODY <0.2 Normal <1.0 [facility] Comment on above: Performed By: #### C BCA, CMP, 1987-12, FEPR, 2276-4, 2284-8, 04689-3, 2132-9, 79836-6, 98339-0, 5130-0, 12879-8, 49660-7, 89322-0, 3357-1, 8092-9, 73903-4, 28832-3, 47190-8, 80117-7, 74859-6 #### [facility] ([id number]) [address] [place] [address], [address] [place] [address] Mejia extractable nuclear Ab +Ribonucleoprotein extractable nuclear IgG Qn (S)on 09-23-2023 MEJIA/VOCATIONAL TECHNICAL EDUCATION TEACHER AB IGG <0.2 Normal <1.0 [facility] Comment on above: Performed By: #### C BCA, CMP, 1987-12, FEPR, 2276-4, 2284-8, 29823-8, 2132-9, 50569-1, 62544-9, 5130-0, 19075-6, 64750-3, 71532-6, 3357-1, 8092-9, 90404-5, 52476-2, 46449-8, 54055-7, 23051-0 #### [facility] ([id number]) [address] [place] [address], [address] [place] [address] Mejia extractable nuclear Ig G Qn (S)on 09-23-2023 ANTI-MEJIA AB IGG <0.2 Normal <1.0 [facility] Comment on above: Performed By: #### C BCA, CMP, 1988-5, FEPR, 2276-4, 2284-8, 79032-5, 2132-9, 13660-9, 18464-8, 5130-0, 08094-5, 61900-8, 11463-9, 3357-1, 8092-9, 82710-4, 83002-7, 01313-5, 39975-0, 35946-7 #### [facility] ([id number]) [address], [address] [place] [address] Mejia/VOCATIONAL TECHNICAL EDUCATION TEACHER AB IgGon 4 Mejia extractable nuclear Ab+Ribonucleoprotein extractable nuclear IgG Qn (S) [facility] Surgical Pathologyon 024 Surgical Pathology Normal [facility] Comment on above: Result Comment: [facility] [address] [place] [address] Flow Cytometry Patient Name:JOSE DAVIDAccession #:[id number]. Rec. #:[id number]:[facility] CenterTaken:4DOB:1945 (Age: 78)Location:[facility] GEN 8 ACUTE C900Iyilsnqy:09/23/2023Gender: FBill. Type:ToledoReported:Priority:RBilling #:[id number] Class:TTH Special Procedure OnlyPhysician(s): Charlene Chan MD [...] patterns of antigen expression are not seen. [place] on the lymphoid population demonstrates a mixed population of phenotypically unremarkable T-cells, natural killer cells, and polyclonal B-cells, without a detectable monoclonal population. Immunophenotyping antibodies tested: CD2, CD3, CD4, CD5, CD7, CD8, CD10, CD13, CD16, CD19, CD20, CD23, CD33, CD34, CD38, CD43, CD45, CD56, CD117, CD123, CD138, [place], and Lambda. Immunophenotyping Comment: Immunophenotyping has been used in this diagnostic evaluation. This test was developed and its performance characteristics determined by the [facility] Clinical Laboratories Department. It has not been [...] (Vitamin B12) [Mass/Vol] 248 pg/mL Normal 180-914 [facility] Comment on above: Performed By: #### C KELVIN EARLY, 1986-, FEPR, 2276-4, 2284-8, 96896-1, 2132-9, 21138-3, 66644-6, 5130-0, 93478-2, 17421-4, 73791-7, 3357-1, 8092-9, 48648-1, 07831-5, 95128-5, 87094-6, 62824-6 #### [facility] ([id number]) [address] [place] [address], [address] [place] [address] Vitamin B12on 09-23-2023 Cobalamin (Vitamin B12) [Mass/Vol] 248 pg/mL 180 - 914 pg/mL [facility] dRVVT/dRVVT.excess phospholi pid Coag (PPP) [Ratio]on 09-23-2023 DILUTE KORI'S VIPER VENOM Negative Normal [facility] Comment on above: Performed By: #### C BCA, CMP, 1988-5, FEPR, 2276-4, 2284-8, 98634-5, 2132-9, 38488-5, 70754-7, 5130-0, 80518-5, 26905-9, 13995-8, 3357-1, 8092-9, 41831-9, 46938-0, 58253-3, 33938-8, 71014-3 #### [facility] ([id number]) [address] [facility], [address] [place] [address] CT CSPINE WO CONon 3 CT [facility] WO CON EXAM: CT scan of the [...] by: SHANTELL GARCIA Date: 2022-12-25 08:22 Normal [facility] XR KNEE RT 4V or >on [...] lateral and patellofemoral compartments where there is kfgs-wm-mfly contact. 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 Electronically authenticated by: KARAN JENKINS Date: 2022-04-25 19:06 Normal [facility] Patient Educationon 09-10-19 22 Patient Education Nutrition [...] height. This can be done either in [place]ien ([place] or metric measurements. Note that charts are available to help you find your BMI quickly and easily without having to do these calculations yourself. To calculate your BMI in [place]ien ([place] measurements, your health care provider will: [...] problems. ? BMI can be measured using Nigerien measurements or metric measurements. ? To interpret [...] 04/22/2005 Document Revised: 07/24/2018 Document Reviewed: 06/24/2018 [employer] Patient Education ? 2020 [employer]. Obstetrics and Gynecology Overactive Bladder, Adult Overactive [...] A spina (more content not included)... Normal [facility] RAD - MISCon 09-10-2021 [facility] [id number] 102 [id number]#1.00C D:127 Normal [facility] [id number] 107 [id number]#1.00C D:127 Normal [facility] Urology Office/Clinic Noteon 09-10-2021 Urology Office/Clinic Note [...] genitourinary system) Interesting patient still working at [employer] which came here the store when I [...] Miner Within 1 year, only if needed [address] [place], [place] [id number] Additional Instructions: Patient Education BMI for Adults [...] Protein Urine Dipstick: Negative (09/10/21 08:26:00) Specific [place] Urine Dipstick: 1.025 (09/10/21 08:26:00) Urine Appearance Urine Dipstick: Clear (09/10/21 08:26:00) Urine Color Urine Dipstick: Yellow (09/10/21 08:26:00) Urobilinogen Urine Dipstick: Normal 0.2-1 EU/dl (09/10/21 08:26:00) pH Urine Dipstick: 5 (09/10/21 08:26:00) Normal [facility] Comment on above: Result Comment: Elec tronically Signed By: Gilbert NAPOLES MD\.br\Date and Time Signed: 09/10/21 08:49 EST\.br\Electronically Co-Signed By: Aurora Hdz MA\.herbert\Date and Time Co-Signed: 09/10/21 08:46 EST Physician Orderon 09-07-2021 Physician Order [id number]#1.00C D:127 Normal [facility] Vital Signs Date Time Vital Sign Value Performing Clinician Faci lity 04-13-2024 10:47-0400 Body height 152.4 cm [facility] 04-13-2024 10:47-0400 Body mass index (BMI) [Ratio] 25.7 kg/m2 [facility] 04-13-2024 10:47-0400 Body weight 59.87 kg [facility] 04-13-2024 10:47-0400 Diastolic blood pressure 76 mm[Hg] [facility] 04-13-2024 10:47-0400 Heart rate 81 /min [facility] 04-13-2024 10:47-0400 SaO2% (BldA) [Mass fraction] 99 % [facility] 04-13-2024 10:47-0400 Systolic blood pressure 122 mm[Hg] [facility] 12-29-2023 09:05-0400 Body height 152.4 cm [facility] 12-29-2023 09:05-0400 Body mass index (BMI) [Ratio] 25.4 kg/m2 [facility] 12-29-2023 09:05-0400 Body temperature 97.5 [degF] [facility] 12-29-2023 09:05-0400 Body weight 58.96 kg [facility] 12-29-2023 09:05-0400 Heart rate 86 /min [facility] 12-29-2023 09:05-0400 Respiratory rate 16 /min [facility] 12-29-2023 09:05-0400 SaO2% (BldA) [Mass fraction] 96 % [facility] 11-06-2023 15:01-0400 Body height 157.5 cm Allie Hoskins MD Work Phone: [facility] [employer] [facility] 11-06-2023 15:01-0400 Body mass index (BMI) [Ratio] 22.09 kg/m2 Allie Hoskins MD Work Phone: [facility] 11-06-2023 15:01-0400 Body temperature 98.6 [degF] Allie Hoskins MD Work Phone: [facility] 11-06-2023 15:01-0400 Body weight 54.8 kg Allie Hoskins MD Work Phone: [facility] 11-06-2023 15:01-0400 Diastolic blood pressure 65 mm[Hg] Allie Hoskins MD Work Phone: [facility] 11-06-2023 15:01-0400 Heart rate 109 /min Allie Hoskins MD Work Phone: [facility] 11-06-2023 15:01-0400 Respiratory rate 24 /min Allie Hoskins MD Work Phone: [facility] 11-06-2023 15:01-0400 SaO2% (BldA) [Mass fraction] 97 % Allie Hoskins MD Work Phone: [facility] 11-06-2023 15:01-0400 Systolic blood pressure 151 mm[Hg] Allie Hoskins MD Work Phone: [facility] 10-16-2023 11:04-0500 Body height 152.4 cm [facility] 10-16-2023 11:04-0500 Body mass index (BMI) [Ratio] 23.6 kg/m2 [facility] 10-16-2023 11:04-0500 Body weight 54.88 kg [facility] 10-16-2023 11:04-0500 Diastolic blood pressure 72 mm[Hg] [facility] 10-16-2023 11:04-0500 Heart rate 88 /min [facility] 10-16-2023 11:04-0500 SaO2% (BldA) [Mass fraction] 98 % [facility] 10-16-2023 11:04-0500 Systolic blood pressure 134 mm[Hg] [facility] 10-16-2023 09:50-0500 Diastolic blood pressure 74 mm[Hg] Mouna Bautista MD Work Phone: [facility] 10-16-2023 09:50-0500 Heart rate 72 /min Mouna Bautista MD Work Phone: [facility] 10-16-2023 09:50-0500 Systolic blood pressure 140 mm[Hg] Mouna Bautista MD Work Phone: [facility] 10-16-2023 09:49-0500 Body height 157.5 cm Mouna Bautista MD Work Phone: [facility] 10-16-2023 09:49-0500 Body mass index (BMI) [Ratio] 21.51 kg/m2 Mouna Bautista MD Work Phone: [facility] 10-16-2023 09:49-0500 Body weight 53.34 kg Mouna Bautista MD Work Phone: [facility] 10-16-2023 09:49-0500 Respiratory rate 18 /min Mouna Bautista MD Work Phone: [facility] 09-26-2023 15:31-0500 Body temperature 98.2 [degF] Bart Milian MD Work Phone: [facility] 09-26-2023 15:31-0500 Heart rate 103 /min Bart Milian MD Work Phone: [facility] 09-26-2023 15:31-0500 Respiratory rate 16 /min Bart Milian MD Work Phone: [facility] 09-26-2023 15:31-0500 SaO2% (BldA) [Mass fraction] 96 % Bart Milian MD Work Phone: [facility] 09-26-2023 07:20-0500 Diastolic blood pressure 84 mm[Hg] Bart Milian MD Work Phone: [facility] 09-26-2023 07:20-0500 Systolic blood pressure 152 mm[Hg] Bart Milian MD Work Phone: [facility] 09-24-2023 13:40-0500 Body height 157.5 cm Bart Milian MD Work Phone: [facility] 09-24-2023 13:40-0500 Body mass index (BMI) [Ratio] 21.21 kg/m2 Bart Milian MD Work Phone: [facility] 09-24-2023 13:40-0500 Body weight 52.6 kg Bart Milian MD Work Phone: [facility] Encounters Encounter Date Encounter Type Care Provider Facility Start: 04-13-2024 End: 04-13-2024 ambulatory [facility] Work Phone: Start: 04-13-2024 End: 04-13-2024 Patient encounter procedure [facility] Work Phone: Start: 03-08-2024 End: 03-08-[address] [facility] Start: 03-05-2024 Non-patient / Non-visit [facility] Work Phone: Start: 02-05-2024 ambulatory [facility] Start: 01-28-2024 End: 01-28-2024 ambulatory [facility] Start: 01-02-2024 End: 01-02-2024 ambulatory [facility] Start: 12-29-2023 End: 12-29-2023 ambulatory [facility] Work Phone: Start: 12-29-2023 End: 12-29-2023 Patient encounter procedure [facility] Work Phone: Start: 12-29-2023 Non-patient / Non-visit [facility] Work Phone: Start: 11-26-2023 End: 11-26-2023 ambulatory [facility] Start: 11-06-2023 End: 11-06-2023 Office outpatient visit 40 minutes Allie Hoskins MD Work Phone: [facility] Comment on above: Normocytic anemia (P rimary Dx); Thrombocytosis Start: 11-06-2023 Orders Only [facility] Comment on above: Giant cell arteritis (CMS-HCC) (Primary Dx); Stroke-like symptoms; Vision blurred; Anemia, unspecified type Start: 10-30-2023 Non-patient / Non-visit [facility] Work Phone: Start: 10-21-2023 End: 10-21-2023 ambulatory JT JASSO [facility] Start: 10-17-2023 Telephone encounter [facility] Comment on above: Med Refill Start: 10-16-2023 End: 10-16-2023 ambulatory [facility] Work Phone: Start: 10-16-2023 End: 10-16-2023 Patient encounter procedure [facility] Work Phone: Start: 10-16-2023 End: 10-16-2023 [facility] Start: 10-16-2023 End: 10-16-2023 Office outpatient visit 15 minutes Mouna Bautista MD Work Phone: [facility] Comment on above: Giant cell arteritis (CMS-HCC) (Primary Dx) Start: 09-29-2023 Telephone encounter [facility] Comment on above: Hospital Follow-up Start: 09-27-2023 End: 09-27-2023 Evaluation and management of inpatient RICKIE STEWART [facility] Start: 09-24-2023 End: 09-27-2023 Evaluation and management of inpatient TREVIN LÓPEZ [facility] Start: 09-24-2023 End: 09-27-2023 Evaluation and management of inpatient CARLITOS BREWER [facility] Start: 09-24-2023 ambulatory JOHN PATEL [facility] Start: 09-23-2023 End: 09-26-2023 Evaluation and management of inpatient TONO PAN [facility] Start: 09-23-2023 End: 09-26-2023 Evaluation and management of inpatient Tono Pan MD Work Phone: [facility] - GEN 8 Acute Comment on above: B12 deficiency (Prim lisa Dx); Thrombocytosis; Vision blurred; Temporal arteritis ([facility] Start: 03-24-2023 End: 03-25-2023 ambulatory Naomy Lujan MD Facility:[facility] Start: 03-10-2023 End: 03-11-2023 ambulatory Naomy Lujan MD Facility:[facility] Start: 03-03-2023 End: 03-04-2023 ambulatory Naomy Lujan MD Facility:[facility] Start: 02-17-2023 End: 02-18-2023 ambulatory Naomy Lujan MD Facility:[facility] Start: 02-03-2023 End: 02-04-2023 ambulatory [facility] Start: 01-24-2023 End: 01-25-2023 ambulatory Naomy Lujan MD Facility:[facility] Start: 12-25-2022 End: 12-25-[address] PATO LYNN Facility: Start: 04-25-2022 End: 04-25-[address] CRISTOPHER BUCHANAN . Facility: Procedures Date Procedure Procedure Detail Performing Clinician Start: 11-26-2023 Follow-up visit Follow-up JT JASSO Start: 11-06-2023 Follow-up visit Follow-up ALLIE HOSKINS Start: 10-16-2023 Follow-up visit Follow-up MOUNA BAUTISTA [...] Phone: Start: 09-23-2023 Bcr/abl1 major breakpnt qualitative/quantitative [place] [employer] Work Phone: Start: 09-23-2023 Antihuman globulin direct each antiserum [place] [employer] Work Phone: Start: 09-23-2023 ANCA Trevin López [...] Work Phone: Start: 09-23-2023 Jak2 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 Bart Milian MD Work Phone: Start: [...] 11-05-2024 Adult BMI Screening Adult BMI Screening [facility] Start: 10-16-2024 Adult BMI Screening Adult BMI Screening [facility] Start: 10-16-2024 Tobacco Screening [facility] [facility] Start: 09-24-2024 Adult BMI Screening Adult BMI Screening [facility] Start: 09-24-2024 Tobacco Screening Tobacco Screening [facility] Start: 09-23-2024 Depression Screening Depression Screening [facility] Start: 03-05-2024 End: 03-05-2024 Patient encounter procedure 03/05/2024 2:15 PM EDT Office Visit [facility] - Medical Oncology [address] [place] [phone] Allie Hoskins MD [address] [place] [address] [address] [place] [address] [address] [facility] - Medical Oncology Start: 01-15-2024 End: 01-15-2024 Patient encounter procedure 01/15/2024 11:00 AM EDT Office Visit [facility] [address] [place] [address] Mouna Bautista MD [address] [address] [facility] Start: 01-02-2024 End: 01-02-2024 Patient encounter procedure 01/02/2024 1:15 PM EDT Office Visit [facility] [address] [place] [phone] Darci Santana MD [address] [place] [address] [facility] Start: 12-05-2023 End: 12-05-2023 Patient encounter procedure 12/05/2023 10:15 AM EDT Office Visit [facility] [address] [place] [phone] Darci Santana MD [address] [place], [place] [phone] [facility] Start: 11-06-2023 End: 11-06-2023 Patient encounter procedure 11/06/2023 3:30 PM EDT Office Visit Adelaida L [facility] - Medical Oncology [address] [place] [phone] Allie Hoskins MD [address] [facility] [address] [place], [place] [phone] Adelaida Keane [facility] - Medical Oncology Start: 10-16-2023 End: 10-16-2023 Patient encounter procedure 10/16/2023 9:10 AM EST Office Visit [facility] [address] [place] [address] Mouna Bautista MD [address] [address] [facility] Start: 04-25-2023 Influenza vaccination Influenza Vaccine [facility] Start: 2011 Fall Risk Screening Fall Risk Screening [facility] Start: 1996 Administration of varicella zoster vaccine Zoster (Shingles) Vaccine (1 of 2) [facility] Start: 1965 DTaP,Tdap and Td Vaccines (1 - Tdap) DTaP,Tdap and Td Vaccines (1 - Tdap) [facility] Start: 1946 Medicare Annual Wellness Visit Medicare Annual Wellness Visit [facility] [employer] [facility] End: 09-26-2024 Basic metabolic 2000 panel - Serum or Plasma Basic Metabolic Panel Lab Routine Vision blurred 1 Occurrences starting 09/26/2023 until 09/26/2024 [facility] Comment on above: 1 Occurrences starting 09/26/2023 until 09/26/2024 End: 09-26-2024 CBC W Auto Differential panel - Blood CBC auto differential Lab Routine Thrombocytosis 1 Occurrences starting 09/26/2023 until 09/26/2024 [facility] Comment on above: 1 Occurrences starting 09/26/2023 until 09/26/2024 End: 11-05-2024 CBC W Auto Differential panel - Blood CBC auto differential Lab Routine Giant cell arteritis ([facility]) Stroke-like symptoms Vision blurred Anemia, unspecified type every 2 months for 2 Occurrences starting 11/06/2023 until 11/05/2024 [employer] Phone: Comment on above: every 2 months for 2 Occurrences startin g 11/06/2023 until 11/05/2024 End: 11-05-2024 Ferritin [Mass/volume] in Serum or Plasma Ferritin Lab Routine Giant cell arteritis ([facility]-HCC) Stroke-like symptoms Vision blurred Anemia, unspecified type every 2 months for 2 Occurrences starting 11/06/2023 until 11/05/2024 [facility] Comment on above: every 2 months for 2 Occurrences startin g 11/06/2023 until 11/05/2024 End: 09-23-2023 Flow cytometry blood only [employer] Work Phone: Comment on above: Once for 1 Occurrences starting 09/23/19 until 09/23/2023 Immunoelectrophoresi s for Therapy Monitoring Immunoelectrophoresis for Therapy Monitoring Lab Routine 09/23/2023 12:56 PM EST [employer] Phone: End: 11-05-2024 Iron and TIBC Iron and TIBC Lab Routine Giant cell arteritis ([facility]) Stroke-like symptoms Vision blurred Anemia, unspecified type every 2 months for 2 Occurrences starting 11/06/2023 until 11/05/2024 [facility] Comment on above: every 2 months for 2 Occurrences startin g 11/06/2023 until 11/05/2024 Methylmalonate [Moles/volume] in Serum or Plasma Methylmalonic acid screen Lab Routine 09/23/2023 12:57 PM EST [facility] End: 09-23-2023 Methylmalonic acid screen Methylmalonic acid screen Lab Routine Once for 1 Occurrences starting 09/23/2023 until 09/23/2023 [employer] Work Phone: Comment on above: Once for 1 Occurrences starting 09/23/19 24 until 09/23/2023 Protein electrophore sis, serum Protein electrophoresis, serum Lab Routine 09/23/2023 12:56 PM EST [employer] Payers Date Payer Category Payer Medicare [id number] 2022 Medicare 2016 Private Health Insurance [id number] 1959 Medicare [id number] 1945 Unknown [id number] 2.16.84 0.1.802458.3.579.2.593 1945 Unknown [id number] 2.16.84 0.1.959122.3.579.2.593 1946 Unknown [id number] 2.16. 840.1.800670.3.579.2.196 1946 Unknown [id number] 2.16. 840.1.839547.3.579.2.196 1946 Unknown [id number] 2.16. 840.1.732990.3.579.2.196 1946 Unknown [id number] 2.16. 840.1.078500.3.579.2.196 1946 Unknown [id number] 2.16. 840.1.155963.3.579.2.196 1946 Unknown [id number] 2.16. 840.1.171792.3.579.2.196 1946 Unknown [id number] 2.16.8 40.1.864004.3.579.2.1286 1946 Unknown [id number] 2.16.8 40.1.115816.3.579.2.1286 1946 Unknown [id number] 2.16.8 40.1.074914.3.579.2.1286 1946 Unknown [id number] 2.16.8 40.1.508788.3.579.2.128 1946 Unknown [id number] 2.16.8 40.1.906204.3.579.2.128 1946 Unknown [id number] 2.16.8 40.1.289625.3.579.2.128 1946 Unknown [id number] 2.16.8 40.1.304336.3.579.2.1285 1946 Unknown [id number] 2.16.8 40.1.499768.3.579.2.1285 1946 Unknown [id number] 2.16.8 40.1.143282.3.579.2.1285 1946 Unknown [id number] 2.16.8 40.1.139827.3.579.2.1285 1946 Unknown [id number] 2.16.8 40.1.367984.3.579.2.128 1946 Unknown [id number] 2.16.8 40.1.290660.3.579.2.1285 1946 Unknown [id number] 2.16.8 40.1.036697.3.579.2.1285 1946 Unknown [id number] 2.16.8 40.1.735545.3.579.2.1285 1946 Unknown [id number] 2.16.8 40.1.092822.3.579.2.1285 1946 Unknown [id number] 2.16.8 40.1.635480.3.579.2.1286 Self-pay Self Pay [id number] Social History Date Type Detail Facility Start: 09-23-2023 Tobacco smoking stat [facility] Never smoked tobacco [facility] Start: 09-23-2023 Tobacco use and exposure Smoke less tobacco non-user [facility] Start: 09-25-2023 End: 10-16-2023 Alcohol intake Lifetime non-drinker (finding) [facility] Start: 10-05-2020 End: 09-23-2023 History of Social function [facility] Start: 10-05-2020 End: 09-23-2023 Alcohol Use Disorder Identification Test - Consumption [AUDIT-C] [facility] How often to you hav e a drink containing alcohol? Never [facility] How many standard dr inks containing alcohol do you have on a typical day? Patient does not drink [facility] Start: 1945 Sex Assigned At Not on file P [facility] Start: 10-16-2023 End: 04-13-2024 Tobacco smoking status NHIS Ex-smoker (finding) [facility] Start: 1945 Sex Assigned At Female F [facility] Goals Date Patient Goal Desired Activity /State Personal health goal Comment on above: Formatting of this n ote might be different from the original. Evaluation of progress towards goal: Home with dtr, self care Clinical Notes 09-23-2023 to 01-28-2024 Malinda Arrington RN - 11/06/2023 3:46 PM EDBill Hoskins MD - 11/06/2023 3:30 PM EDTPatient InstructionsTelephone Encounter - Beronica Janebaldev - 10/17/2023 11:39 AM ESTDischarge InstructionsAttachments Note Date & Type Note Facility 01-28-2024 Note Subjective Patient ID: Jose David is a 78 y.o. female who presents for Follow-up (GCA. Neck pain with cramping ). HPI She was admitted to [facility] end of August 2023 due to bilateral vision loss. She underwent bilateral TA biopsy, which confirmed GCA. She is using prednisone 40 mg daily and bactrim. Will initiate treatment with Actemra 6 weeks ago. She is doing very well but no recovery of her vision. Which is not expected. She does not have much vision left, have difficulty ambulating with no assistance. No change compared to the last visit. Review of Systems Constitutional: Positive for activity [...] problems and confusion. Objective Visit Vitals BP 122/72 (BP Location: Right arm, Patient Position: Sitting, BP Cuff Size: Adult) Pulse 92 Physical Exam Vitals and nursing note reviewed. [...] taper prednisone from the current dose of 10 mg daily down to 5 mg daily over 2 months. Continue Actemra [...] every 3 months to monitor for toxicity. [facility] 11-26-2023 Note Subjective Patient ID: Jose David is a 78 y.o. female who presents for Follow-up (GCA). HPI She was admitted to [facility] end of August 2023 due to bilateral [...] every 3 months to monitor for toxicity. [facility] 11-06-2023 History of Present illness Narrative Patient is here for consult with Dr. Hoskins. Orders received for CBC, iron studies every 2 months (print out orders). F/u in 4 months. Calendar given to family member and labs orders to be drawn at [place]. documented in this encounter [facility] 11-06-2023 History of Present illness Narrative Images from the original note were not included. [facility] 11/06/23 Jose David is a 78 y.o. year old female seen today in the oncology clinic. Chief Complaint Patient presents with Follow-up History of Present Illness: Mrs. David is a 78 y.o. female with no significant past medical history presented to saturator tender on 09/19/2023 due to blurry vision in left eye, she was told her optic disc was swollen and the patient was given a referral to micrographics services supervisor. Over the weekend patients vision in left eye continued to worsen and eventually lost all vision in left eye. Patient was seen by micrographics services supervisor 09/22/2023 and time she would decreased vision also in her right eye. It was recommended that she go straight to the emergency department, for concern for giant cell arteritis. Initially she went to [facility] where they gave her Solu-Medrol 250 mg IV 1 dose and then transferred her to [facility]. When she arrived at [facility] she had complete vision loss in both [...] 09/25/2023 Performed by Kristel Reid MD at [facility] No family history [...] day, repeat CBC and iron study at [facility] in 2 months. Follow-up in 4 months. If patient can not tolerate oral iron supplement, consider IV iron treatment. Thank you. Allie Hoskins MD Please note that portions of this note were generated using voice recognition M*Modal dictation software. Although every effort was made to ensure the accuracy of this automated eyelet maker, some errors in eyelet maker may have occurred. CC: Patient Care Team: MERCEDES Portillo as PCP - General (Nurse Practitioner) Allie Hoskins MD as Consulting Physician (Hematology) PCP:Giovanna Graf Referring MD: John Patel DO documented in this encounter [facility] 11-06-2023 Instructions Allie Hoskins MD - 11/06/2023 3:30 PM EDT CBC, iron studies every 2 months (print out orders). F/u in 4 months. documented in this encounter [facility] 10-21-2023 Note Daughter faxed us th e patient portion of the PAP application. I faxed to [employer] PAP. Jhoana Callejas, MeganD Outpatient Clinical Pharmacist [facility] [phone] 12/03/23 4:22 PM [facility] 10-21-2023 Note I spoke to lilian luis alfredo milian and she said she [...] the copay went up so high. Brynn Patricia PharmD, BCACP 12/03/23 3:[address] [facility] [phone] [facility] 10-21-2023 Note Daughter called this morning asking for status update. We received a fax 12/02 stating they had received the application and it would take 3 business days for processing. Will follow-up tomorrow with program to check the status. Brynn Patricia PharmD, BCACP 12/08/23 9:[address] [facility] [phone] [facility] 10-21-2023 Note Called and spoke wit h daughter. She plans to complete labs on 10/29/23. Will check for TB results again in a couple of days. Deb Blount, Mechanical Engineering Technologist [facility] [id number] 10/28/23 10:03 AM [facility] 10-21-2023 Note The patient has been approved to receive free drug from the [employer] PAP until: -Therapy is discontinued -Health insurance/financial status change I spoke with the patient's daughter - she stated the medication is supposed to be delivered Friday. We will follow up with the patient on 01/05/2024 to ensure the medication is received. Alexa Bass, [facility] 12/30/23 8:54 AM [facility] 10-21-2023 Note Pt daughter called [...] to check status next Friday. Mert Damon, [facility] 12/22/23 at 12:14 PM [facility] 10-21-2023 Note TB test came back ne bimal on 10/30/23. Will submit PA to CMM. Awaiting determination. Deb Blount, Mechanical Engineering Technologist [facility] [id number] 11/04/23 11:50 AM [facility] 10-21-2023 Note Pt's POA called back . Advised on PA process, POA requests future contact go to her directly ([phone]). F/U upon determination of PA. Mert Damon, [facility] 11/04/23 at 12:51 PM [facility] 10-21-2023 Note The daughter called back, she did submit the Extra Help application online yesterday, I don't know how long that it will take to take effect. Future filled Rx for next week to see. Pt is due for next dose in 2 weeks. I am writing appeal now to submit to PAP. Brynn Patricia, Basil, [facility] 12/24/23 10:[address] [facility] [phone] [facility] 10-21-2023 Note Deya called back an d said she was trying to send the bank statement with name ; I let her know that is not how we received it. I stated we probably need something that shows Jose as the account holdr - like a monthly statement. She is going to try to email to Jhoana today. Naresh Barrett, Basil, [facility] Outpatient Clinical Pharmacist [place] [facility] [id number] 12/23/23 12:56 PM [facility] 10-21-2023 Note PAP denied due to in come being too high because they considered her daughters income. Based on pts income of $1590/month should qualify for extra help. Tried to call program and they are all in a meeting, will try again tomorrow. Brynn Patricia, MeganD, BCACP 12/11/23 3:[address] [facility] [phone] [facility] 10-21-2023 Note Patient's caregiver called [...] Faxed MD portion for signature. Greg Baltazar [facility] 12/01/23 11:30 AM [facility] 10-21-2023 Note The patient's daught er informed us that her mother had her blood work done at [place] yesterday, therefore we should expect to receive the results in a couple of days. [facility] lab's number is [phone] if we do not received the results in care everywhere. Mony Lin, [facility] 10/31/23 9:32 AM [facility] 10-21-2023 Note Patient received med ication from PAP. Advised we will follow up when due for renewal. If they need help to reach out to us. Greg Baltazar [facility] 01/05/24 2:26 PM [facility] 10-21-2023 Note We received a [...] meantime for the extra help application. Brynn Patricia PharmD, [facility] 12/23/23 2:[address] [facility] [phone] [facility] 10-21-2023 Note Called patient and L VM to call back. What we received is a screenshot of transactions for bank account. No account saucedo name on it at all. This will not work. Called daughter Malinda's phone number: [phone]; but son Ryan answered. He will have daughter/mother call us back. Advised we need financial documents for patient assistance program application. Naresh Barrett PharmD, [facility] Outpatient Clinical Pharmacist [place] [facility] [id number] 12/23/23 12:40 PM [facility] 10-21-2023 Note We have not received any bank statements for the patient. I called [employer] and they haven't received them either. However, I did verify with them that they will accept the bank statements. I tried reaching the patient's daughter to follow up - no answer, LVMTCB. Alexa Bass [facility] 12/19/23 3:09 PM [facility] 10-21-2023 Note Patient's daughter manuel nation and she has not yet faxed the SS statement, but will today. Mony Lin [facility] 12/15/23 12:17 PM [facility] 10-21-2023 Note Spoke to [employer] JADYN Ambrocio and they said they will accept and appeal. Send in as APPEAL to [employer]. Explain the situation and provide income documentation. Daughter is going to look for SS statement, will fax today or Friday if they don't find it. Brynn Patricia PharmD, [facility] 12/12/23 11:[address] [facility] [phone] [facility] 10-21-2023 Note The patient's daught er called to check on the status of the PAP application. I informed her that as of 12/08/23 they were still reviewing it. I let her know that once we have an update, we will let her know. Alexa Bass [facility] 12/10/23 10:01 AM [facility] 10-21-2023 Note Prior Authorization for Actemra has been approved 11/04/2023-05/06/2024. Case ID/Authorization Number: [id number] Mony Lin [facility] 11/04/23 2:12 PM [facility] 10-21-2023 Note Called and spoke wit h the patient's daughter and she plans to complete labs on Friday. Negro Curry, Mechanical Engineering Technologist 10/24/23 1:21 PM [facility] 10-21-2023 Note Specialty Pharmacy N ote: Actemra Supervising Physician & Clinic:?? Dr. Jt Jasso, [facility] Rheumatology Jose David is a 78 [...] be outside lab. ? Malinda's phone number: [phone] Naresh Barrett PharmD, [facility] Outpatient Clinical Pharmacist [place] [facility] [id number] 10/21/23 4:03 PM [facility] 10-21-2023 Note Spoke to PAP, they r eceived the appeal but need to review it. They will let us know. LM for pt's daughter to let her know. Brynn Patricia PharmD, [facility] 12/26/23 1:17 PM [facility] [phone] [facility] 10-21-2023 Note Faxed appeal to [employer] PAP with letter I wrote and bank statements we received. Brynn Patricia PharmD, [facility] 12/24/23 12:25 PM [facility] [phone] [facility] 10-21-2023 Note I spoke to the patie nt's daughter today and she told me [...] sent it and the denial into the [employer] PAP. I will leave the Extra Help denial letter in the folder for now and we can send everything in at once. Irena Whaley, [facility], BCACP, [facility] 12/16/23 3:59 PM [facility] [phone] [facility] 10-21-2023 Note Subjective Patient ID: Jose David is a 78 y.o. female who presents for Follow-up (GCA). HPI She was admitted to [facility] end of August 2023 due to bilateral [...] every 3 months to monitor for toxicity. [facility] 10-17-2023 Miscellaneous Notes Patients daughterMalinda said that the patient will need refills before her appointment on 12/05/2023 Medication Refill request: Medication Name and Strength:vitamin B12 1,000 mcg Current dose & Frequency: Take 1 tablet daily actually taking - not what is listed on the prescription label 30 day or 90 day supply preferred:30 Pharmacy Name: [id number] - [place], [place] - If already [...] or 90 day supply preferred:30 Pharmacy Name: [id number] - [place], [place] - If already [...] 90 day supply preferred: 30 Pharmacy Name: [id number] - [place], [place] - If already [...] have to fill. documented [facility] this encounter [facility] 10-17-2023 Telephone encounter Note Patients daughterMalinda said [...] pharmacy - specify address & phone number [facility] 10-17-2023 Telephone encounter Note I have attempted to contact this patient by phone with the following results: left detailed message regarding that since patient has not been seen in clinic PCP or the provider that prescribed medication will have to fill. [facility] 10-16-2023 History of Present illness Narrative Images from the original note were not included. [facility] [address] [facility] [id number] Subjective: Patient ID: Jose David is a [...] Vision blurred Stroke-like symptoms Giant cell arteritis ([facility]) Current Outpatient Medications: acetaminophen (TYLENOL EXTRA STRENGTH) [...] orders for this visit: Giant cell arteritis ([facility]) Plan Plan: Referral to rheumatology for management of temporal arteritis. Continue steroids in the meanwhile Mouna Bautista MD documented in this encounter [facility] 09-29-2023 Miscellaneous Notes Please ask the following [...] OPINION? - Patient saw Dr. Byrne at [facility] Hospital Visit 09/23-08/26/2023 5. PATIENT IS SCHEDULED ON/WITH: - 12/05/2023 at 10:[address] Santana documented in this encounter [facility] 09-29-2023 Telephone encounter Note Please ask the [...] OPINION? - Patient saw Dr. Byrne at [facility] Hospital Visit 09/23-08/26/2023 5. PATIENT IS SCHEDULED ON/WITH: - 12/05/2023 at 10:[address] Santana [facility] 09-26-2023 Nurse Note Patient alert and oriented. IV and telemetry discontinued. All discharge instructions have been reviewed and are understood by the patient and daughter. Patient left the unit via wheelchair with all of their belongings and in no distress. Patient discharged home. [facility] 09-26-2023 Nurse Note Patient alert and oriented. IV and telemetry discontinued. All discharge instructions have been reviewed and are understood by the patient and daughter. Patient left the unit via wheelchair with all of their belongings and in no distress. Patient discharged home. documented in this encounter [facility] 09-26-2023 Hospital course Narrative Images from the original note were not included. [facility]- Hospital Medicine Discharge Summary Patient's Name: [...] of the discharge: peripheral smear, flow cytometry, [facility] Hospital Course Jose Davidson a 78 y.o.female with no significant past medical history, she presented to the hospital with bilateral vision loss. Patient started to notice blurry vision in her left eye 09/19, she was evaluated by Ophthalmology outpatient who referred her to eye center in [place]. Over the weekend her left eye vision significantly deteriorated to a point where she could no longer see. On 09/22, she started developing vision loss in her right eye. She visited the eye center who sent her to ER right away. Patient initially presented to the [facility] ER, she was given Solu-Medrol 250 mg IV once and transferred to [facility] for further workup. Patient was evaluated by [...] Medications These medications were sent to [facility]/pharmacy #[id number] [address] aspirin 81 mg cyanocobalamin 1000 MCG tablet [...] Adult diet Regular Texture Adult diet John P House, DO [address] [facility] [id number] Schedule an appointment as soon as possible for a visit in 1 week(s) Jt Jasso MD 2100 [facility] 2 [facility] Rheumatology [facility] [phone] Schedule an appointment as soon as possible for a visit in 2 week(s) Joni Pizano MD [address] [facility] [address] [place] [id number] Schedule an appointment as soon as possible for a visit in 2 week(s) Sandy Pizano MD [address] [facility], [address], [address] [facility] [phone] Schedule an appointment as soon as possible for a visit in 1 month(s) Montana Bartlett MD 3915 [facility] [phone] Schedule an appointment as soon as possible [...] the patient's questions. Electronically signed by: BART MILINA MD [facility] Hospitalists, Department of Internal Medicine 09/26/23 1:16 PM documented in this encounter [facility] 09-26-2023 Hospital Discharge instructions Bart Milian MD - 09/26/2023 1:15 PM EST You are started on Aspirin to reduce terminal superintendent risk of vascular complications with you suspected condition (giant cell arteritis) also it will help with preventing thrombosis (clotting) given your Thrombocytosis (elevated platelet count). Please discuss any concerns with your primary care provider, cigarette making machine catcher or cabbage salter Discuss with primary care or cigarette making machine catcher DEXA scan as you are expected to be on steroid medications for prolonged period of time (up to 6 months). Log term steroids can cause Osteoporosis. The following attachments cannot be sent through Care Everywhere.Polymyalgia rheumatica and giant cell arteritis ([place])documented in this encounter [facility] 09-26-2023 History of Present illness Narrative Images from the original note were not included. [facility] Rheumatology PROGRESS NOTE DATE OF ADMISSION 09/23/2023 12:25 AM REASON FOR CONSULTATION: Acute B/L sudden painless vision loss concerning for B/l [facility] REFERRING PHYSICIAN: Goran Thomas MD PCP JOHN PATEL, ASSESSMENT AND PLAN: B/L vision loss likely 2/2 [facility] -Pt's initial symptoms were blur vision in L eye but unfortunately when she presented to [facility] she had complete vision loss [...] SSA, SSB, scleroderma antibody, Tiki 1, Mejia, VOCATIONAL TECHNICAL EDUCATION TEACHER, anti dsDNA, anti chromatin were negative. -No [...] no significant past medical history presented to [facility] 09/24 for concerns of vision loss in left eye. Patient was evaluated by saturator tender on 09/19/2023 due to blurry vision left [...] concerns of giant cell arteritis. Initially at [facility] she was given Solu-Medrol 250 mg IV 1 dose and then transferred to [facility]. On presenting to [facility], she had complete vision loss in both eyes. She was started on IV Solu-Medrol 1000 mg for 3 days. She underwent bilateral temporal artery biopsy on 09/25/2023. During this admission she had workup done which showed positive SILVIA screen, mildly elevated rheumatoid factor at 21 and elevated anticentromere antibody. Anca ribosomal antibody, SSA, SSB, scleroderma antibody, Tiki 1, Mejia, VOCATIONAL TECHNICAL EDUCATION TEACHER, anti dsDNA, anti chromatin were negative. PAST MEDICAL HISTORY: History reviewed. No pertinent past medical history. PAST SURGICAL HISTORY: Past Surgical History: Procedure Laterality Date APPENDECTOMY BIOPSY ARTERY TEMPORAL Bilateral 09/25/2023 Performed by Kristel Reid MD at [facility] TONSILLECTOMY TUBAL LIGATION ALLERGIES: Allergies Allergen [...] of the major arterial structures in the [place]. The paranasal sinuses are clear. [...] of the major arterial structures in the [place]. The paranasal sinuses are clear. [...] original note were not included. [facility] Vascular [place] [facility] Service Progress Note Subjective: Status post [...] plan of care Jose De León MD,MD [facility] 11:24 AM 09/26/2023 Images from the original note were not included. [facility] Hospitalists Progress Note 09/25/2023 Patient Name: [...] 09/25/2023 Performed by Kristel Reid MD at [facility] TONSILLECTOMY TUBAL LIGATION OBJECTIVE Vital Signs: [...] oz) Wt Readings from Last 3 Encounters: 01/31/24 52.6 kg (115 lb 15.4 oz) Input/Output: [...] presents to the emergency department from her micrographics services supervisor's office. She was being evaluated with an micrographics services supervisor for possible giant cell arthritis. She said [...] from the original note were not included. [facility] Neurology General Neurology Consultation Note Consult Neurology Service: [phone] Primary Team: [facility] Chief Complaint and Reason for Consultation: Vision [...] eye. On Friday 09/22, patient came to [place] to see an eye doctor, who asked her to go to the ED. patient initially went to [facility], given Solu-Medrol 250 mg IV once, transferred to [facility] for further workup and ophthalmology evaluation. According to the patient, her right eye vision worsened significantly on Friday, and she lost her vision on both eyes. Patient had no past medical history, she has not taking any scheduled medications, patient lives with her daughter, she is driving and working. Walking with no assistive devices. Upon initial assessment in [facility], patient had complete vision loss on both [...] CTH, head and neck CTA done at [facility], reportedly unremarkable Impression: Binocular vision loss concerning [...] to Friday 12-1:00 p.m. Primary Neurology service: [phone] Consult neurology service: [phone] Resident Stroke Service: [phone] If the patient belongs to the Stroke [...] from the original note were not included. [facility] Physicians Hospitalists Progress Note 09/24/2023 Patient Name: [...] IgG 992 635 - 1,741 mg/dL Free [place] Lt Chains 2.91 (H) 0.33 - 1.94 [...] of the major arterial structures in the [place]. The paranasal sinuses are clear. [...] of the major arterial structures in the [place]. The paranasal sinuses are clear. [...] from the original note were not included. [facility] Neurology General Neurology Consultation Note Consult Neurology Service: [phone] Primary Team: [facility] Chief Complaint and Reason for Consultation: Vision [...] was given referral to eye center in [place]?, on Friday and Friday, vision on the left eye worsened significantly and she lost her vision on the left eye. On Friday 09/22, patient came to [place] to see an eye doctor, who asked her to go to the ED. patient initially went to [facility], given Solu-Medrol 250 mg IV once, transferred to [facility] for further workup and ophthalmology evaluation. According to the patient, her right eye vision worsened significantly on Friday, and she lost her vision on both eyes. Patient had no past medical history, she has not taking any scheduled medications, patient lives with her daughter, she is driving and working. Walking with no assistive devices. Upon initial assessment in [facility], patient had complete vision loss on both [...] CTH, head and neck CTA done at [facility], reportedly unremarkable Impression: Binocular vision loss concerning [...] to Friday 12-1:00 p.m. Primary Neurology service: [phone] Consult neurology service: [phone] Resident Stroke Service: [phone] If the patient belongs to the Stroke [...] from the original note were not included. [facility] Hospitalists Progress Note 09/23/2023 Patient Name: [...] correct any mistakes. documented in this encounter [facility] 09-26-2023 Progress note Formatting of t [...] - Sophia Rajan RN 09/26/23 11:05 AM [facility] Program 09-26-2023 Miscellaneous Notes Images from the original [...] at the bedside 7. Instruct patient/ patient insurance claims representative about use of safety devices 8. Include patient/ patient insurance claims representative in decisions related to safety Note: Evaluation of progress towards goal: No reports of injury during shift. Safety measures in place Problem: Low Risk Fall Score Description: Clifford Fall Score of 0 - 24 or indicated by [facility] Assessment Goal: Patient should be free from fall Description: Interventions: 1. [place] to environment 2. Hourly rounds addressing the [...] non-skid footwear 11. Teach patient and patient insurance claims representative to maintain environment for safety and [...] Description: INTERVENTIONS: 1. Encourage patient or legal insurance claims representative to report early pain and ask [...] per policy 9. Teach patient or legal insurance claims representative interventions for comforting Outcome: Progressing Note: [...] at the bedside 7. Instruct patient/ patient insurance claims representative about use of safety devices 8. Include patient/ patient insurance claims representative in decisions related to safety Outcome: [...] hygiene technique 7. Identify and instruct patient/patient insurance claims representative in use of appropriate isolation precautions for identified infection/symptoms 8. Provide and discuss with patient/patient insurance claims representative on educational MDRO sheet 9. Encourage and monitor nutritional status daily and consult supervisor hand silvering if indicated 10. Implement neutropenic guidelines as needed 11. Review exposure to history of communicable disease and recent travel history on admission 12. Encourage annual influenza vaccine 13. Encourage pneumonia vaccine Outcome: Progressing Note: Evaluation of progress towards goal: Patient free from signs of infection. Afebrile. Continue to Monitor. Problem: Knowledge Deficit Goal: Patient/patient insurance claims representative demonstrates understanding of disease process, treatment [...] of 0 - 24 or indicated by [facility] Assessment Goal: Patient should be free from fall Description: Interventions: 1. [place] to environment 2. Hourly rounds addressing the [...] non-skid footwear 11. Teach patient and patient insurance claims representative to maintain environment for safety and engage in all aspects of fall prevention program Outcome: Progressing Note: Evaluation of progress towards goal: Patient free from falls and injury. Continue to monitor. Problem: Moderate - High Risk Fall Score Description: Clifford Fall Score of =/> 25 or indicated by [facility] Assessment Goal: Patient should be free from fall Description: Interventions: 1. [place] to environment 2. Hourly rounds addressing the [...] non-skid footwear 11. Teach patient and patient insurance claims representative to maintain environment for safety and [...] (cane, walker) within reach 19. Request patient insurance claims representative bring adaptive equipment/mobility aids from home or obtain and provide as needed 20. Consult pharmacy regarding effects of med's affecting mobility, cognition, and alternatives 21. Obtain physician order for PT if risk factors associated with mobility are present 22. Obtain physician order for OT as appropriate 23. Utilize diversional activities 24. Educate patient and patient insurance claims representative how to maintain a safe environment during visitation times (notify nurse prior to leaving bedside) 25. Consider appropriateness of medical or non-medical services assistant 26. Set up voiding schedule as appropriate [...] days ago. She was evaluated by her micrographics services supervisor who felt that vision loss was secondary [...] hemodynamically stable. Condition: stable Kristel Reid MD [facility] V[facility] Problem: Low Risk Fall Score Description: Clifford Fall Score of 0 - 24 or [facility] Goal: Patient should be free from fall Description: Interventions: 1. [place] to environment 2. Hourly rounds addressing the [...] non-skid footwear 11. Teach patient and patient insurance claims representative to maintain environment for safety and engage in all aspects of fall prevention program Outcome: Progressing Note: Evaluation of progress towards goal: Patient remained free from falls. Will continue to utilized fall prevention measures. Problem: Pain Goal: Patient goal is pain score less than 4, able to rest, and participant in treatment plan as appropriate Description: INTERVENTIONS: 1. Encourage patient or legal insurance claims representative to report early pain and ask [...] per policy 9. Teach patient or legal insurance claims representative interventions for comforting Outcome: Progressing Note: [...] at the bedside 7. Instruct patient/ patient insurance claims representative about use of safety devices 8. Include patient/ patient insurance claims representative in decisions related to safety Outcome: [...] hygiene technique 7. Identify and instruct patient/patient insurance claims representative in use of appropriate isolation precautions for identified infection/symptoms 8. Provide and discuss with patient/patient insurance claims representative on educational MDRO sheet 9. Encourage and monitor nutritional status daily and consult supervisor hand silvering if indicated 10. Implement neutropenic guidelines as needed 11. Review exposure to history of communicable disease and recent travel history on admission 12. Encourage annual influenza vaccine 13. Encourage pneumonia vaccine Outcome: Progressing Note: Evaluation of progress towards goal: Patient afebrile, Monitoring labs. Problem: Knowledge Deficit Goal: Patient/patient insurance claims representative demonstrates understanding of disease process, treatment [...] Description: INTERVENTIONS: 1. Encourage patient or legal insurance claims representative to report early pain and ask [...] per policy 9. Teach patient or legal insurance claims representative interventions for comforting Outcome: Progressing Note: [...] at the bedside 7. Instruct patient/ patient insurance claims representative about use of safety devices 8. Include patient/ patient insurance claims representative in decisions related to safety Outcome: [...] hygiene technique 7. Identify and instruct patient/patient insurance claims representative in use of appropriate isolation precautions for identified infection/symptoms 8. Provide and discuss with patient/patient insurance claims representative on educational MDRO sheet 9. Encourage and monitor nutritional status daily and consult supervisor hand silvering if indicated 10. Implement neutropenic guidelines as [...] Description: INTERVENTIONS: 1. Encourage patient or legal insurance claims representative to report early pain and ask [...] per policy 9. Teach patient or legal insurance claims representative interventions for comforting Outcome: Progressing Note: [...] at the bedside 7. Instruct patient/ patient insurance claims representative about use of safety devices 8. Include patient/ patient insurance claims representative in decisions related to safety Outcome: [...] hygiene technique 7. Identify and instruct patient/patient insurance claims representative in use of appropriate isolation precautions for identified infection/symptoms 8. Provide and discuss with patient/patient insurance claims representative on educational MDRO sheet 9. Encourage and monitor nutritional status daily and consult supervisor hand silvering if indicated 10. Implement neutropenic guidelines as needed 11. Review exposure to history of communicable disease and recent travel history on admission 12. Encourage annual influenza vaccine 13. Encourage pneumonia vaccine Outcome: Progressing Note: Evaluation of progress towards goal: Patient receiving antibiotics as ordered. Continue to monitor. Problem: Knowledge Deficit Goal: Patient/patient insurance claims representative demonstrates understanding of disease process, treatment [...] of 0 - 24 or indicated by [facility] Assessment Goal: Patient should be free from fall Description: Interventions: 1. [place] to environment 2. Hourly rounds addressing the [...] non-skid footwear 11. Teach patient and patient insurance claims representative to maintain environment for safety and [...] at the bedside 7. Instruct patient/ patient insurance claims representative about use of safety devices 8. Include patient/ patient insurance claims representative in decisions related to safety Outcome: [...] hygiene technique 7. Identify and instruct patient/patient insurance claims representative in use of appropriate isolation precautions for identified infection/symptoms 8. Provide and discuss with patient/patient insurance claims representative on educational MDRO sheet 9. Encourage and monitor nutritional status daily and consult supervisor hand silvering if indicated 10. Implement neutropenic guidelines as needed 11. Review exposure to history of communicable disease and recent travel history on admission 12. Encourage annual influenza vaccine 13. Encourage pneumonia vaccine Outcome: Progressing Note: Evaluation of progress towards goal: Patient has no signs and symptoms of infection. Problem: Low Risk Fall Score Description: Clifford Fall Score of 0 - 24 or indicated by [facility] Assessment Goal: Patient should be free from fall Description: Interventions: 1. [place] to environment 2. Hourly rounds addressing the [...] non-skid footwear 11. Teach patient and patient insurance claims representative to maintain environment for safety and engage in all aspects of fall prevention program Outcome: Progressing Note: Evaluation of progress towards goal: Patient remained free from falls. Will continue to utilized fall prevention measures. documented in this encounter [facility] 09-26-2023 Plan of care note Problem: [...] at the bedside 7. Instruct patient/ patient insurance claims representative about use of safety devices 8. Include patient/ patient insurance claims representative in decisions related to safety Note: Evaluation of progress towards goal: No reports of injury during shift. [facility] in [facility] Plan of care note Problem: Low Risk Fall Score Description: Clifford Fall Score of 0 - 24 or indicated by [facility] Assessment Goal: Patient should be free from fall Description: Interventions: 1. [place] to environment 2. Hourly rounds addressing the [...] non-skid footwear 11. Teach patient and patient insurance claims representative to maintain environment for safety and engage in all aspects of fall prevention program Outcome: Progressing Note: Evaluation of progress towards goal: Patient remained free from falls. Will continue to utilized fall prevention measures. [facility] Program 09-25-2023 Progress note Formatting of t his [...] - Sophia Rajan RN 09/25/23 1:09 PM [employer] 09-25-2023 Plan of care note Problem: Pain Goal: Patient goal is pain score less than 4, able to rest, and participant in treatment plan as appropriate Description: INTERVENTIONS: 1. Encourage patient or legal insurance claims representative to report early pain and ask [...] per policy 9. Teach patient or legal insurance claims representative interventions for comforting Outcome: Progressing Note: [...] at the bedside 7. Instruct patient/ patient insurance claims representative about use of safety devices 8. Include patient/ patient insurance claims representative in decisions related to safety Outcome: [...] hygiene technique 7. Identify and instruct patient/patient insurance claims representative in use of appropriate isolation precautions for identified infection/symptoms 8. Provide and discuss with patient/patient insurance claims representative on educational MDRO sheet 9. Encourage and monitor nutritional status daily and consult supervisor hand silvering if indicated 10. Implement neutropenic guidelines as needed 11. Review exposure to history of communicable disease and recent travel history on admission 12. Encourage annual influenza vaccine 13. Encourage pneumonia vaccine Outcome: Progressing Note: Evaluation of progress towards goal: Patient free from signs of infection. Afebrile. Continue to Monitor. Problem: Knowledge Deficit Goal: Patient/patient insurance claims representative demonstrates understanding of disease process, treatment [...] of 0 - 24 or indicated by [facility] Assessment Goal: Patient should be free from fall Description: Interventions: 1. [place] to environment 2. Hourly rounds addressing the [...] non-skid footwear 11. Teach patient and patient insurance claims representative to maintain environment for safety and engage in all aspects of fall prevention program Outcome: Progressing Note: Evaluation of progress towards goal: Patient free from falls and injury. Continue to monitor. Problem: Moderate - High Risk Fall Score Description: Clifford Fall Score of =/> 25 or indicated by [facility] Assessment Goal: Patient should be free from fall Description: Interventions: 1. [place] to environment 2. Hourly rounds addressing the [...] non-skid footwear 11. Teach patient and patient insurance claims representative to maintain environment for safety and [...] (cane, walker) within reach 19. Request patient insurance claims representative bring adaptive equipment/mobility aids from home or obtain and provide as needed 20. Consult pharmacy regarding effects of med's affecting mobility, cognition, and alternatives 21. Obtain physician order for PT if risk factors associated with mobility are present 22. Obtain physician order for OT as appropriate 23. Utilize diversional activities 24. Educate patient and patient insurance claims representative how to maintain a safe environment during visitation times (notify nurse prior to leaving bedside) 25. Consider appropriateness of medical or non-medical services assistant 26. Set up voiding schedule as appropriate (every 2 hours) Outcome: Progressing Note: Evaluation of progress towards goal: Patient free from falls and injury. Continue to monitor. [facility] Program 09-25-2023 Consult note Associated Order (s): IP CONSULT TO RHEUMATOLOGY Images from the original note were not included. [facility] Rheumatology CONSULT NOTE DATE OF ADMISSION 09/23/2023 12:25 AM REASON FOR CONSULTATION: Acute B/L sudden painless vision loss concerning for B/l [facility] REFERRING PHYSICIAN: Goran Thomas MD PCP JOHN PATEL, DO ASSESSMENT AND PLAN: B/L vision loss likely 2/2 [facility] -Pt's initial symptoms were blur vision in L eye but unfortunately when she presented to [facility] she had complete vision loss [...] SSA, SSB, scleroderma antibody, Tiki 1, Mejia, VOCATIONAL TECHNICAL EDUCATION TEACHER, anti dsDNA, anti chromatin were negative. -No concern for RA or scleroderma given lack of clinical symptoms Discussed with attending Dr. Romero Shah PGY-5, Rheumatology CHIEF COMPLAINT: Visual loss HISTORY OF PRESENT ILLNESS: Jose David is a 78 y.o. White or female who presents with no significant past medical history presented to [facility] 09/24 for concerns of vision loss in left eye. Patient was evaluated by saturator tender on 09/19/2023 due to blurry vision left [...] concerns of giant cell arteritis. Initially at [facility] she was given Solu-Medrol 250 mg IV 1 dose and then transferred to [facility]. On presenting to [facility], she had complete vision loss in both eyes. She was started on IV Solu-Medrol 1000 mg for 3 days. She underwent bilateral temporal artery biopsy on 09/25/2023. During this admission she had workup done which showed positive SILVIA screen, mildly elevated rheumatoid factor at 21 and elevated anticentromere antibody. Anca ribosomal antibody, SSA, SSB, scleroderma antibody, Tiki 1, Mejia, VOCATIONAL TECHNICAL EDUCATION TEACHER, anti dsDNA, anti chromatin were negative. PAST [...] of the major arterial structures in the [place]. The paranasal sinuses are clear. [...] of the major arterial structures in the [place]. The paranasal sinuses are clear. [...] IgG 992 635 - 1,741 mg/dL Free [place] Lt Chains 2.91 (H) 0.33 - 1.94 [...] I agree with the assessment and plan. [facility] 09-25-2023 Consult note Associated Order (s): IP CONSULT TO RHEUMATOLOGY Images from the original note were not included. 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 -No concern for RA or scleroderma given lack of clinical symptoms Discussed with attending Dr. Rmoero Shah PGY-5, Rheumatology CHIEF COMPLAINT: Visual loss HISTORY OF PRESENT ILLNESS: Jose David is a 78 y.o. White or female who presents with no significant past medical history presented to [facility] 09/24 for concerns of vision loss in left eye. Patient was evaluated by saturator tender on 09/19/2023 due to blurry vision left [...] concerns of giant cell arteritis. Initially at [facility] she was given Solu-Medrol 250 mg IV 1 dose and then transferred to [facility]. On presenting to [facility], she had complete vision loss in both eyes. She was started on IV Solu-Medrol 1000 mg for 3 days. She underwent bilateral temporal artery biopsy on 09/25/2023. During this admission she had workup done which showed positive SILVIA screen, mildly elevated rheumatoid factor at 21 and elevated anticentromere antibody. Anca ribosomal antibody, SSA, SSB, scleroderma antibody, Tiki 1, Mejia, VOCATIONAL TECHNICAL EDUCATION TEACHER, anti dsDNA, anti chromatin were negative. PAST [...] of the major arterial structures in the [place]. The paranasal sinuses are clear. [...] of the major arterial structures in the [place]. The paranasal sinuses are clear. [...] IgG 992 635 - 1,741 mg/dL Free [place] Lt Chains 2.91 (H) 0.33 - 1.94 [...] presents to the emergency department from her micrographics services supervisor's office. She was being evaluated with an micrographics services supervisor for possible giant cell arthritis. She said [...] questions or concerns regarding management. ALANNA Guzman [facility] [place] Office/After hours: [phone] ALANNA Guzman 09/24/23 1521 Associated Order(s): IP CONSULT TO SPIRITUAL CARE Summary: Spiritual Care Consult for Advance Directive Assistance Spiritual Care Consult for Advance Directive Assistance Advance Directive: Aerosol Supervisor provided patient with education on the need for advance directives and a copy of the [place] Advance Directive packet. Aerosol Supervisor assisted patient in completing the advance directives. Patient completed and signed a healthcare power of consumer attorney. Patient was given the original and a copy. One copy placed in patient's chart. A oil refinery process technician is available 24/7 to offer spiritual and emotional support and may be reached through the [facility] mill operator helper at [phone]. Associated Order(s): IP CONSULT TO OPHTHALMOLOGY Date: Reason for consult: I have been asked to evaluate the eyes of this 78-year-old lady who noticed sudden onset of foggy in the left eye 4 days ago this rapidly progressed to complete loss of vision in the left eye.. She saw an saturator tender who indicated to her that she had [...] the patient was given a referral to micrographics services supervisor. Over the weekend patients vision in left eye continued to worsen and eventually lost all vision in left eye. Patient was seen by micrographics services supervisor 09/22/2023 and time she would decreased vision also in her right eye. It was recommended that she go straight to the emergency department, for concern for giant cell arteritis. Initially she went to [facility] where they gave her Solu-Medrol 250 mg IV 1 dose and then transferred her to [facility]. 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 Caitie Wilder PA-C [facility] [address] [place] [address] September 23, 2023, 10:20 AM Please note that portions of this note were generated using voice recognition [employer] dictation software. Although every effort was made to ensure the accuracy of this automated eyelet maker, some errors in eyelet maker may have occurred. I have personally performed [...] need to start aspirin Joni PIZANO M.D. [facility] Day time contact: After hours answering service: [phone] [place] [address] Associated Order(s): IP CONSULT TO NEUROLOGY Images from the original note were not included. [facility] Neurology General Neurology Consultation Note Consult Neurology Service: [phone] Primary Team: SAMUEL Chief Complaint and Reason [...] eye. On Friday 09/22, patient came to [place] to see an eye doctor, who asked her to go to the ED. patient initially went to [facility], given Solu-Medrol 250 mg IV once, transferred to [facility] for further workup and ophthalmology evaluation. According to the patient, her right eye vision worsened significantly on Friday, and she lost her vision on both eyes. Patient had no past medical history, she has not taking any scheduled medications, patient lives with her daughter, she is driving and working. Walking with no assistive devices. Upon initial assessment in [facility], patient had complete vision loss on both [...] Reportedly ESR and CRP were elevated at [facility] Imaging: CTH, head and neck CTA done at [facility], reportedly unremarkable Other Testing: None Assessment: Jose [...] follow Carlitos Caraballo MD PGY-3, Neurology Resident [facility] Staffed with: (Dr. Byrne) This patient is being followed by the Neurology Resident service. Contact attending directly during these hours: Friday to 7:30-8:30 A.M. to Friday 12-1:00 p.m. Primary Neurology service: [phone] Consult neurology service: [phone] Resident Stroke Service: [phone] If the patient belongs to the Stroke [...] Pizano MD, PhD documented in this encounter [facility] 09-25-2023 Procedure note Operative Note Date: [...] days ago. She was evaluated by her micrographics services supervisor who felt that vision loss was secondary [...] hemodynamically stable. Condition: stable Kristel Reid MD [facility] 09-25-2023 Attending History and physical note HISTORY AND PHYSICAL INTERVAL NOTE: Jose David 1945 [id number] H&P reviewed. The patient was examined and there are no changes to the H&P. Kristel Reid MD Source Note - Faisal Rascon APRN-EXPORT ADMINISTRATOR - 09/24/2023 10:37 AM EST Images from the original note were not included. Vascular History and Physical Examination/Consultation Note Reason for Consultation Bilateral temporal artery biopsy, concern for giant cell arteritis History and Present Illness Jose David is a 78 y.o. White or female who presents to the emergency department from her micrographics services supervisor's office. She was being evaluated with an micrographics services supervisor for possible giant cell arthritis. She said [...] questions or concerns regarding management. Faisal Rascon APRN-[facility] [place] Office/After hours: [phone] ALANNA Guzman 09/24/23 1521 ALANNA Guzman 09/25/23 0730 [facility] 09-25-2023 History and physical note HISTORY AND PHYSICAL INTERVAL NOTE: Jose David 1945 [id number] H&P reviewed. The patient was examined and [...] presents to the emergency department from her micrographics services supervisor's office. She was being evaluated with an micrographics services supervisor for possible giant cell arthritis. She said [...] questions or concerns regarding management. ALANNA Guzman [facility] [place] Office/After hours: [phone] ALANNA Guzman 09/24/23 1521 ALANNA Guzman 09/25/23 0730 Images from the original note were not included. [facility] History and Physical 09/23/2023 Patient Name: [...] length with patient at bedside HPI Jose Dvaid is a 78 y.o. female with past medical history significant for Patient presented to the emergency department based on ophthalmology recommendation, patient saw Ophthalmology in [place] today evaluated for possible giant cell arthritis, [...] pedis pulses present and equal bilaterally Skin: Tye, warm, dry; no rashes or lesions Neurologic: [...] Electronically signed by: MD Nandini PAREDES M.D. [facility] This note was completed using a voice eyelet maker system. Every effort was made to ensure accuracy. However, inadvertent computerized eyelet maker errors may be present. documented in this encounter [facility] 09-24-2023 Plan of care note Problem: Low Risk Fall Score Description: Clifford Fall Score of 0 - 24 or indicated by [facility] Assessment Goal: Patient should be free from fall Description: Interventions: 1. [place] to environment 2. Hourly rounds addressing the [...] non-skid footwear 11. Teach patient and patient insurance claims representative to maintain environment for safety and engage in all aspects of fall prevention program Outcome: Progressing Note: Evaluation of progress towards goal: Patient remained free from falls. Will continue to utilized fall prevention measures. [facility] 09-24-2023 Plan of care note Problem: Pain Goal: Patient goal is pain score less than 4, able to rest, and participant in treatment plan as appropriate Description: INTERVENTIONS: 1. Encourage patient or legal insurance claims representative to report early pain and ask [...] per policy 9. Teach patient or legal insurance claims representative interventions for comforting Outcome: Progressing Note: [...] at the bedside 7. Instruct patient/ patient insurance claims representative about use of safety devices 8. Include patient/ patient insurance claims representative in decisions related to safety Outcome: [...] hygiene technique 7. Identify and instruct patient/patient insurance claims representative in use of appropriate isolation precautions for identified infection/symptoms 8. Provide and discuss with patient/patient insurance claims representative on educational MDRO sheet 9. Encourage and monitor nutritional status daily and consult supervisor hand silvering if indicated 10. Implement neutropenic guidelines as needed 11. Review exposure to history of communicable disease and recent travel history on admission 12. Encourage annual influenza vaccine 13. Encourage pneumonia vaccine Outcome: Progressing Note: Evaluation of progress towards goal: Patient afebrile, Monitoring labs. Problem: Knowledge Deficit Goal: Patient/patient insurance claims representative demonstrates understanding of disease process, treatment plan, medications, and discharge instructions Description: INTERVENTIONS 1. Complete learning assessment and assess knowledge base 2. Provide teaching at level of understanding 3. Provide teaching via preferred learning method(s) Outcome: Progressing Note: Evaluation of progress towards goal: POC reviewed with patient, verbalizes understanding [facility] 09-24-2023 Progress note Formatting of t [...] - Sophia Rajan RN 09/24/23 10:57 AM [facility] 09-24-2023 Consult note Formatting of th is note is different from the original. Images from the original note were not included. Vascular History and Physical Examination/Consultation Note Reason for Consultation Bilateral temporal artery biopsy, concern for giant cell arteritis History and Present Illness Jose David is a 78 y.o. White or female who presents to the emergency department from her micrographics services supervisor's office. She was being evaluated with an micrographics services supervisor for possible giant cell arthritis. She said [...] questions or concerns regarding management. ALANNA Guzman [facility] [place] Office/After hours: [phone] ALANNA Guzman 09/24/23 1521 [facility] Work Phone: 09-23-2023 Plan of care note Problem: Pain Goal: Patient goal is pain score less than 4, able to rest, and participant in treatment plan as appropriate Description: INTERVENTIONS: 1. Encourage patient or legal insurance claims representative to report early pain and ask [...] per policy 9. Teach patient or legal insurance claims representative interventions for comforting Outcome: Progressing Note: [...] at the bedside 7. Instruct patient/ patient insurance claims representative about use of safety devices 8. Include patient/ patient insurance claims representative in decisions related to safety Outcome: [...] hygiene technique 7. Identify and instruct patient/patient insurance claims representative in use of appropriate isolation precautions for identified infection/symptoms 8. Provide and discuss with patient/patient insurance claims representative on educational MDRO sheet 9. Encourage and monitor nutritional status daily and consult supervisor hand silvering if indicated 10. Implement neutropenic guidelines as needed 11. Review exposure to history of communicable disease and recent travel history on admission 12. Encourage annual influenza vaccine 13. Encourage pneumonia vaccine Outcome: Progressing Note: Evaluation of progress towards goal: monitor for signs and symptoms of infection [facility] 09-23-2023 Plan of care note Problem: Pain Goal: Patient goal is pain score less than 4, able to rest, and participant in treatment plan as appropriate Description: INTERVENTIONS: 1. Encourage patient or legal insurance claims representative to report early pain and ask [...] per policy 9. Teach patient or legal insurance claims representative interventions for comforting Outcome: Progressing Note: [...] at the bedside 7. Instruct patient/ patient insurance claims representative about use of safety devices 8. Include patient/ patient insurance claims representative in decisions related to safety Outcome: [...] hygiene technique 7. Identify and instruct patient/patient insurance claims representative in use of appropriate isolation precautions for identified infection/symptoms 8. Provide and discuss with patient/patient insurance claims representative on educational MDRO sheet 9. Encourage and monitor nutritional status daily and consult supervisor hand silvering if indicated 10. Implement neutropenic guidelines as needed 11. Review exposure to history of communicable disease and recent travel history on admission 12. Encourage annual influenza vaccine 13. Encourage pneumonia vaccine Outcome: Progressing Note: Evaluation of progress towards goal: Patient receiving antibiotics as ordered. Continue to monitor. Problem: Knowledge Deficit Goal: Patient/patient insurance claims representative demonstrates understanding of disease process, treatment [...] of 0 - 24 [facility] Goal: Patient should be free from fall Description: Interventions: 1. [place] to environment 2. Hourly rounds addressing the [...] non-skid footwear 11. Teach patient and patient insurance claims representative to maintain environment for safety and engage in all aspects of fall prevention program Outcome: Progressing Note: Evaluation of progress towards goal: Patient free from falls and injury. Continue to monitor. [facility] 09-23-2023 Consult note Associated Order (s): IP CONSULT TO SPIRITUAL CARE Summary: Spiritual Care Consult for Advance Directive Assistance Spiritual Care Consult for Advance Directive Assistance Advance Directive: Aerosol Supervisor provided patient with education on the need for advance directives and a copy of the [employer] Advance Directive packet. Aerosol Supervisor assisted patient in completing the advance directives. Patient completed and signed a healthcare power of consumer attorney. Patient was given the original and a copy. One copy placed in patient's chart. A oil refinery process technician is available 17/03 to offer spiritual and emotional support and may be reached through the [facility] mill operator helper at [phone]. [facility] 09-23-2023 Progress note Formatting of t his [...] care - LIANE KEN 09/23/23 2:07 PM [facility] 09-23-2023 Progress note Formatting of t his note might be different from the original. Consulted for MAUREEN to rule out embolic process in setting of sudden vision loss. Discussed with neurology, recommend surface echo with bubble study prior to consideration of MAUREEN. If TTE unremarkable and continued concerns, please let us know. ALANNA Rosario 09/23/23 1300 [facility] Work Phone: 09-23-2023 Consult note Associated Order (s): IP CONSULT TO OPHTHALMOLOGY Date: Reason for consult: I have been asked to evaluate the eyes of this 78-year-old lady who noticed sudden onset of foggy in the left eye 4 days ago this rapidly progressed to complete loss of vision in the left eye.. She saw an saturator tender who indicated to her that she had [...] is indicated. Thanks Montana Bartlett MD, FACS. [facility] Work Phone: 09-23-2023 Consult note Associated Order [...] the patient was given a referral to micrographics services supervisor. Over the weekend patients vision in left eye continued to worsen and eventually lost all vision in left eye. Patient was seen by micrographics services supervisor 09/22/2023 and time she would decreased vision also in her right eye. It was recommended that she go straight to the emergency department, for concern for giant cell arteritis. Initially she went to [facility] where they gave her Solu-Medrol 250 mg IV 1 dose and then transferred her to [facility]. 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 Caitie Wilder PA-C [facility] [address] [place] [address] September 23, 2023, 10:20 AM Please note that portions of this note were generated using voice recognition [employer] dictation software. Although every effort was made to ensure the accuracy of this automated eyelet maker, some errors in eyelet maker may have occurred. I have personally performed [...] need to start aspirin Joni PIZANO M.D. [facility] Day time contact: After hours answering service: [phone] [place] [address] [employer] Work Phone: 09-23-2023 Plan of care [...] at the bedside 7. Instruct patient/ patient insurance claims representative about use of safety devices 8. Include patient/ patient insurance claims representative in decisions related to safety Outcome: [...] hygiene technique 7. Identify and instruct patient/patient insurance claims representative in use of appropriate isolation precautions for identified infection/symptoms 8. Provide and discuss with patient/patient insurance claims representative on educational MDRO sheet 9. Encourage and monitor nutritional status daily and consult supervisor hand silvering if indicated 10. Implement neutropenic guidelines as needed 11. Review exposure to history of communicable disease and recent travel history on admission 12. Encourage annual influenza vaccine 13. Encourage pneumonia vaccine Outcome: Progressing Note: Evaluation of progress towards goal: Patient has no signs and symptoms of infection. Problem: Low Risk Fall Score Description: Clifford Fall Score of 0 - 24 or indicated by [facility] Assessment Goal: Patient should be free from fall Description: Interventions: 1. [place] to environment 2. Hourly rounds addressing the [...] non-skid footwear 11. Teach patient and patient insurance claims representative to maintain environment for safety and engage in all aspects of fall prevention program Outcome: Progressing Note: Evaluation of progress towards goal: Patient remained free from falls. Will continue to utilized fall prevention measures. [facility] 09-23-2023 Consult note Associated Order (s): IP CONSULT TO NEUROLOGY Images from the original note were not included. [facility] Neurology General Neurology Consultation Note Consult Neurology Service: [phone] Primary Team: SAMUEL Chief Complaint and Reason [...] eye. On Friday 09/22, patient came to [place] to see an eye doctor, who asked her to go to the ED. patient initially went to [facility], given Solu-Medrol 250 mg IV once, transferred to [facility] for further workup and ophthalmology evaluation. According to the patient, her right eye vision worsened significantly on Friday, and she lost her vision on both eyes. Patient had no past medical history, she has not taking any scheduled medications, patient lives with her daughter, she is driving and working. Walking with no assistive devices. Upon initial assessment in [facility], patient had complete vision loss on both [...] Reportedly ESR and CRP were elevated at [facility] Imaging: CTH, head and neck CTA done at [facility], reportedly unremarkable Other Testing: None Assessment: Jose [...] follow Carlitos Caraballo MD PGY-3, Neurology Resident [facility] Staffed with: (Dr. Byrne) This patient is being followed by the Neurology Resident service. Contact attending directly during these hours: Friday to 7:30-8:30 A.M. to Friday 12-1:00 p.m. Primary Neurology service: [phone] Consult neurology service: [phone] Resident Stroke Service: [phone] If the patient belongs to the Stroke [...] follow and update Sandy Pizano MD, PhD [employer] Work Phone: 09-23-2023 History and physical note Images from the original note were not included. [facility] History and Physical 09/23/2023 Patient [...] on ophthalmology recommendation, patient saw Ophthalmology in [place] today evaluated for possible giant cell arthritis, [...] pedis pulses present and equal bilaterally Skin: Tye, warm, dry; no rashes or lesions Neurologic: [...] Electronically signed by: MD Nandini PAREDES M.D. [facility] This note was completed using a voice eyelet maker system. Every effort was made to ensure accuracy. However, inadvertent computerized eyelet maker errors may be present. [facility] Evaluation note Diagnosis Vision blurred- Primary Other specified visual disturbances B12 deficiency Thrombocytosis Essential thrombocythemia Vision blurred Other specified visual disturbances Temporal arteritis (CMS-HCC) Giant cell arteritis Stroke-like symptoms documented [facility]* Diagnosis Onset Date Resolution Status GERD (gastroesophageal reflux disease) acute Hospital discharge follow-up acute Temporal arteritis acute Vision loss, bilateral acute [facility] Work Phone: Evaluation note* Diagnosis Giant cell arteritis (CMS-HCC)- Primary Giant cell arteritis [facility] Diagnosis Normocytic anemia- Primary Unspecified anemia Thrombocytosis Essential thrombocythemia [facility] Diagnosis Giant cell arteritis (CMS-HCC)- Primary Giant cell arteritis Stroke-like symptoms Vision blurred Other specified visual disturbances Anemia, unspecified type [facility] Diagnosis Onset Date Resolution Status GERD (gastroesophageal reflux disease) acute History of cataract extraction with lens replacement acute Hospital discharge follow-up acute Temporal arteritis acute Vision loss, bilateral acute Acute effusion of left ear a cute Eustachian tube dysfunction acute [facility] Work Phone: Evaluation noteNo assessment information available [facility] Work Phone: InstructionsNot on filedocumented in this encounter [facility] SystemInstructionsNot on filedocumented in this encounter [facility]InstructionsNot on filedocumented in this encounter [facility] Summary Purpose Family History No Family History Records FoundNo Family History Records FoundNo Family History Records FoundNo Family History Records FoundNo Family History Records FoundNo Family History Records FoundNo Family History Records Found Advance Directives Documents on File Type Date Recorded 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 Expl anation Durable Power of Inside Phone Sales 09/23/2023 4:17 PM [facility] Pow er of Inside Phone Sales Latest Code Status on File Code Status Date Activated Date Inactivated Comments Full Code 09/23/2023 12:33 AM 09/26/2023 7:44 PM Healthcare Agents on File Name Relationship Healthcare Agent Relationshi p Communication Mike David Son Health Care Agent Malinda Brito Daughter First Alternate Health Care Agent Documents on File Type Date Recorded 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 Expl anation Durable Power of Inside Phone Sales 09/23/2023 4:17 PM [facility] Pow er of Inside Phone Sales Latest Code Status on File Code Status [...] Documents on File Type Date Recorded 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 Expl anation Durable Power of Inside Phone Sales 10/03/2023 8:14 AM Durable Power of Inside Phone Sales 09/23/2023 4:17 PM [facility] Pow er of Inside Phone Sales Healthcare Agents on File Name Relationship Healthcare Agent Relationshi p Communication Mike David Son Health Care Agent [phone] [id number] (Home) Malinda Brito Daughter First Alternate Health Care Agent Healthcare Agents on File Name [facility] Healthcare Agent Relationshi p Communication Mike David [...] with primary care provider Bart Milian MD [address] [place] [id number] Referral ID Status Reason Start Date Expiration Date V isits Requested Visits Authorized [id number] Pending Review 09/26/2023 09/25/2024 1 1 Specialty Diagnoses / Procedures Referred By Contchang t Referred To Contact Procedures Adult diet Bart Milian MD [address] [place] [id number] Referral ID Status Reason Start Date Expiration Date V isits Requested Visits Authorized [id number] Pending Review 09/26/2023 09/25/2024 1 1 Chief [...] effusion of left ear Eustachian tube dysfunction Chief Complaint MAWV Additional Source Comments INFORMATION SOURCE (unrecogn ized section and content) DATE CREATED AUTHOR 11/18/2021 [facility] DATE CREATED AUTHOR AUTHOR'S ORGANIZ ATION 01/31/2023 [facility] DATE CREATED AUTHOR AUTHOR'S ORGANIZ ATION 04/15/2023 [facility] DATE CREATED AUTHOR AUTHOR'S ORGANIZ ATION 10/04/2023 [facility] DATE CREATED AUTHOR AUTHOR'S ORGANIZ ATION 01/29/2024 [facility] DATE CREATED AUTHOR AUTHOR'S ORGANIZ ATION 02/06/2024 [facility] DATE CREATED AUTHOR AUTHOR'S ORGANIZ ATION 03/12/2024 [facility] Reason for Visit (unrecogniz ed section and content) Specialty Diagnoses / Procedures Referred By Contac t Referred To Contact Diagnoses Vision blurred Stroke-like symptoms CVA symptoms Tono Pan MD [address] [place] [address] Referral ID Status Reason Start Date Expiration Date Visits Re quested Visits Authorized [id number] 1 1 Reason Onset Date Comments Hospital [...] (Given - Provider: Kimberly Chin, RN) 0613 ([facility] Hold - Provider: Automatic Transfer Provider [...] Auto Held - Provider: Automatic Transfer Provider)1151 ([facility] Unhold - Provider: Automatic Transfer Provider) 0855 [...] Auto Held - Provider: Automatic Transfer Provider)1151 ([facility] Unhold - Provider: Automatic Transfer Provider) predniSONE [...] Jc Pelayo RN - Reason: IV infusing) 06 ([facility] Hold - Provider: Automatic Transfer [...] repeat treatment. VESICANT (RED) Warning: HYPERTONIC solution. 06 ([facility] Hold - Provider: Automatic Transfer Provider - Reason: Patient not available)1151 ([facility] Unhold - Provider: Automatic Transfer Provider) fentaNYL [...] mg/dL after initial treatment, repeat treatment. 0613 ([facility] Hold - Provider: Automatic Transfer Provider - Reason: Patient not available)1151 ([facility] Unhold - Provider: Automatic Transfer Provider) ondansetron (PF) (ZOFRAN) injection 4 mg 4 mg, intravenous, Every 8 hours PRN, nausea, vomiting, Starting on Fri09/23/23 at 0032, Administer over 2-5 minutes. 0613 ([facility] Hold - Provider: Automatic Transfer Provider - Reason: Patient not available)1151 ([facility] Unhold - Provider: Automatic Transfer Provider) sennosides-docusate sodium (SENOKOT-S) 8.6-50 mg 1 tablet 1 tablet, oral, Every 12 hours PRN, constipation, Starting on Fri09/23/23 at 0032 0613 ([facility] Hold - Provider: Automatic Transfer Provider - Reason: Patient not available)1151 ([facility] Unhold - Provider: Automatic Transfer Provider) [...] use, Starting on Fri09/23/23 at 0032 0613 ([facility] Hold - Provider: Automatic Transfer Provider - Reason: Patient not available)1151 ([facility] Unhold - Provider: Automatic Transfer Provider) sodium chloride 0.9 % flush bag 25 mL, intravenous, at 100 mL/hr, Administer over 15 Minutes, As needed, line care, line care after IVPB administration, Starting on Fri09/23/23 at 0032 0613 ([facility] Hold - Provider: Automatic Transfer Provider - Reason: Patient not available)1151 ([facility] Unhold - Provider: Automatic Transfer Provider) [...] Care Teams (unrecognized sec tion and content) Communications Department Chair Relationship Specialty Start Date End Date John Patel DO [address] [place] [id number] PCP - General 01/23/17 Communications Department Chair Relationship Specialty Start Date End Date John Patel DO [address] [place] [id number] PCP - General 01/23/17 Team Status: Active Member Role Status Dates Giovanna Graf APRN [employer] Primary Care Provider Active Team Status: Inactive Member Role Status Dates Giovanna Graf APRN [employer] Primary Care Provider, Attending Provider Active Start: October 16, 2023 End: October 16, 2023 Communications Department Chair Relationship Specialty Start Date End Date Giovanna Graf APRN-NP [address] [place] [id number] PCP - General Nurse Practitioner 10/10/23 Communications Department Chair Relationship Specialty Start Date End Date Giovanna Graf APRN-NP [address] [place] [id number] PCP - General Nurse Practitioner 10/10/23 Team Status: Active Member Role Status Dates Giovanna Graf APRN [employer] Primary Care Provider, Attending Provider Active Start: October 30, 2023 Team Status: Active Member Role Status Dates Giovanna Graf APRN [employer] Primary Care Provider Active Start: December 29, 2023 Jt Jasso MD Attending Provider Active S tart: December 29, 2023 Team Status: Inactive Member Role Status Dates Giovanna Graf APRN [employer] Primary Care Provider, Attending Provider Active Start: December 29, 2023 End: December 29, 2023 Team Status: Active Member Role Status Dates Giovanna Graf APRN [employer] Primary Care Provider, Attending Provider Active Start: March 05, 2024 Team Status: Inactive Member Role Status Dates Giovanna Graf APRN [employer] Primary Care Provider, Attending Provider Active Start: April 13, 2024 End: April 13, 2024 Goals (unrecognized section and content) Goals may be documented in a n alternate sectionGoals may be documented in an alternate sectionGoals may be documented in an [...] BE BASED ON THE PRIMARY CLINICAL RECORDS. [facility] [employer] provides no warranty or guarantee of the accuracy or completeness of information in this document.
[2024-04-30 07:17] LABS: Basophils Percent Auto 0.7 % (0.2-2.0); Eosinophils Absolute Auto 0.2 10^3/uL (0.0-0.7); Eosinophils Percent Auto 2.6 % (0.9-7.0); Hemoglobin 12.1 g/dL (12.0-16.0); Immature Granulocytes Abs Auto 0.01 10^3/uL (0.00-0.03); Immature Granulocytes Pct Auto 0.2 % (0.0-0.5); Lymphocytes Absolute Auto 3.3 10^3/uL (1.2-3.8); Lymphocytes Percent Auto 56.8 % (20.5-60.0); Mean Corpuscular HGB Conc 32.7 g/dL (29.9-35.2); Mean Corpuscular Hemoglobin 31.4 pg (26.7-34.0); Mean Corpuscular Volume 96.1 fL (81.0-99.0); Mean Platelet Volume 8.6 fL (9.5-13.5); Monocytes Absolute Auto 0.5 10^3/uL (0.3-0.8); Neutrophils Absolute Auto 1.8 10^3/uL (1.4-6.5); Neutrophils Percent Auto 30.7 % (43.0-75.0); Platelet Count 262 10^3/uL (150-450); Red Blood Count 3.85 10^6/uL (4.20-5.40); Red Cell Distribution Width 13.2 % (11.0-15.0); White Blood Count 5.9 10^3/uL (4.0-11.0)
[2024-04-30 07:25] LABS: Erythrocyte Sedimentation Rate 4 mm/hr (<=30)
[2024-04-30 08:04] LABS: Alanine Aminotransferase 29 U/L (14-59); Albumin Globulin Ratio 1.3; Albumin Level 3.3 g/dL (3.4-5.0); Alkaline Phosphatase 49 U/L (46-116); Anion Gap 9.7; Aspartate Amino Transferase 23 U/L (15-37); BUN Creatinine Ratio 28.7; Bilirubin Total 0.5 mg/dL (0.2-1.0); Carbon Dioxide 32.1 mmol/L (21.0-32.0); Chloride 105 mmol/L (98-107); Chol HDL Ratio 3.2; Cholesterol 302 mg/dL (<=200); Estimated GFR (African America >60 (>=60); Estimated GFR (Non-African Ame >60 (>=60); Globulin 2.6 g/dL; Glucose 85 mg/dL (74-106); HDL Cholesterol 95 mg/dL (40-60); Potassium 3.8 mmol/L (3.5-5.1); Sodium 143 mmol/L (136-145); Total Protein 5.9 g/dL (6.4-8.2); Triglycerides 87 mg/dL (<=150); VLDL CHOLESTEROL 17.4 mg/dL
== END 2024-04-30 06:55 | disposition home or self-care (01) ==
LOC: LAB 06:58
PROVIDERS: PCP Nurse Practitioner Family; Visit Provider Internal Medicine
DX: M31.6 Other giant cell arteritis (principal); Z79.52 Long term (current) use of systemic steroids; E78.49 Other hyperlipidemia; Z11.59 Encounter for screening for other viral diseases
CPT/HCPCS: 36415; 80053; 80061; 85025; 85652

== ENCOUNTER 2024-09-02 09:10 | Outpatient (OUT) | payer MEDICARE, SELFPAY ==
[2024-09-02 10:03] LABS: Basophils Percent Auto 0.5 % (0.2-2.0); Eosinophils Absolute Auto 0.2 10^3/uL (0.0-0.7); Eosinophils Percent Auto 3.8 % (0.9-7.0); Hematocrit 36.8 % (36.0-48.0); Lymphocytes Percent Auto 54.1 % (20.5-60.0); Mean Corpuscular HGB Conc 32.6 g/dL (29.9-35.2); Mean Corpuscular Hemoglobin 31.5 pg (26.7-34.0); Mean Corpuscular Volume 96.6 fL (81.0-99.0); Mean Platelet Volume 9.2 fL (9.5-13.5); Monocytes Absolute Auto 0.5 10^3/uL (0.3-0.8); Monocytes Percent Auto 8.4 % (1.7-12.0); Neutrophils Absolute Auto 1.8 10^3/uL (1.4-6.5); Neutrophils Percent Auto 33.2 % (43.0-75.0); Platelet Count 278 10^3/uL (150-450); Red Blood Count 3.81 10^6/uL (4.20-5.40); Red Cell Distribution Width 13.8 % (11.0-15.0); White Blood Count 5.5 10^3/uL (4.0-11.0)
[2024-09-02 10:53] LABS: Alanine Aminotransferase 25 U/L (14-59); Albumin Globulin Ratio 1.4; Albumin Level 3.6 g/dL (3.4-5.0); Alkaline Phosphatase 62 U/L (46-116); Anion Gap 8.8; Aspartate Amino Transferase 19 U/L (15-37); BUN Creatinine Ratio 34.8; Bilirubin Total 0.5 mg/dL (0.2-1.0); Calcium 8.9 mg/dL (8.5-10.1); Carbon Dioxide 32.2 mmol/L (21.0-32.0); Chloride 107 mmol/L (98-107); Chol HDL Ratio 3.2; Cholesterol 315 mg/dL (<=200); Estimated GFR (African America >60 (>=60 mL/min/1.73m^2); Estimated GFR (Non-African Ame >60 (>=60 mL/min/1.73m^2); Globulin 2.6 g/dL; Glucose 85 mg/dL (74-106); HDL Cholesterol 99 mg/dL (40-60); Sodium 144 mmol/L (136-145); Total Protein 6.2 g/dL (6.4-8.2); Triglycerides 86 mg/dL (<=150); VLDL CHOLESTEROL 17.2 mg/dL
[2024-09-02 11:04] LABS: Erythrocyte Sedimentation Rate 3 mm/hr (<=30)
== END 2024-09-02 09:11 | disposition home or self-care (01) ==
LOC: LAB 09:11
PROVIDERS: PCP Nurse Practitioner Family; Visit Provider Internal Medicine
DX: M31.6 Other giant cell arteritis (principal); E78.49 Other hyperlipidemia; Z79.52 Long term (current) use of systemic steroids
CPT/HCPCS: 36415; 80053; 80061; 85025; 85652

== ENCOUNTER 2024-09-02 09:19 | Outpatient (OUT) | payer MEDICARE, SELFPAY ==
[2024-09-02 11:22] LABS: Percent Iron Saturation 47.1 %
[2024-09-03 04:08] LABS: Vitamin B12 1376 pg/mL (232-1245)
== END 2024-09-02 09:20 | disposition home or self-care (01) ==
LOC: LAB 09:20
PROVIDERS: PCP Nurse Practitioner Family; Visit Provider Internal Medicine Hematology & Oncology
DX: D64.9 Anemia, unspecified (principal); M31.6 Other giant cell arteritis; Z79.52 Long term (current) use of systemic steroids; E78.49 Other hyperlipidemia; R29.90 Unspecified symptoms and signs involving the nervous system; H53.8 Other visual disturbances
CPT/HCPCS: 36415; 80053; 80061; 82607; 82728; 83540; 83550; 85025; 85652

== ENCOUNTER 2024-11-06 08:56 | Outpatient (OUT) | payer MEDICARE, SELFPAY ==
--- OUTSIDE RECORDS SUMMARY | 2024-11-06 08:59 | XMS_ITS | CCD ---
Author Organization [facility] Care Team Providers Care Public Health Technician Name Role Phone LEAH, DR PATO Perez Admitting Unavailalonso e LEAH, DR PATO Perez Consulting Unavailabl e REINLOURDES, DR PATO Perez Attending Unavailabl e HOUSE, DR BECKHAM Primary Care Unavailable SHANTELL GARCIA Consulting Unavailable CHANEL ., DR NICHOLAS Attending Unavailable KARAN JENKINS Consulting Unavailable JORGE, DR BECKHAM Primary Care Unavailable CHANEL ., DR NICHOLAS Admitting Unavailable LADI LOPEZ Consulting Unavailable Tai SENIOR, Naomy Gordon Attending Unavailable Giedraitis , Naomy Gordon Attending Unavailable Giedraitis , Naomy Gordon Attending Unavailable Tai SENIOR, Naomy Gordon Attending Unavailable Giedraitis , Andvolodymyr Gordon Attending Unavailable Giedraitis , Andvolodymyr Gordon Attending Unavailable TONO PAN Admitting Unavailable TONO PAN Attending Unavailable YOEL GAVIN Referring Unavailable JOHN PATEL Primary Care Unavailable MONTANA BARTLETT Consulting Unavailable ERA BYRNE Consulting Unavailable JOSE SHAW Consulting Unavailable GONZALES CARRILLO Consulting Unavailable MOUNA KURTZ Consulting Unavailable JT JASSO I Consulting Unavailable CARLITOS CARABALLO Referring Unavail able JOHN PATEL Primary Care Unavailable TREVIN LÓPEZ Referring Unavailable HOUSE, JOHN Ambrocio Primary Care Unavailable RICKIE STEWART Attending Unavailable JORGE, JOHN Ambrocio Primary Care Unavailable MAHNAZ OCHOA Attending Unavailable JOHN PATEL Referring Unavailable ROHRBACHERGIOVANNA Primary Care Unavailable MOUNA BAUTISTA Attending Unavailable GIOVANNA GRAF Referring Unavailable ROHRBACHER, GIOVANNA Primary Care Unavailable HOUSE, JOHN Ambrocio Referring Unavailable HOUSE, JOHN Ambrocio Primary Care Unavailable HOUSE, JOHN Ambrocio Referring Unavailable HOUSE, JOHN Ambrocio Primary Care Unavailable JOHN PATEL Referring Unavailable JOHN PATEL Primary Care Unavailable ALYSIAMOUNA FLEMING Attending Unavailable JOHN PATEL Referring Unavailable ROHRBACHER, GIOVANNA Primary Care Unavailable Rohrbacher DOUBLE SURFACE OPERATOR-[facility]ETERINARY H[facility] ATTENDANT, Giovanna Primary Care Provid er John Patel DO Primary Care Provider ALLIE HOSKINS Attending Unavailable JOHN PATEL Referring Unavailable ROHRBACHER, GIOVANNA Primary Care Unavailable MYRA COTA Attending Unavailable ROHRBACHER, GIOVANNA Referring Unavailable ROHRBACHER, GIOVANNA Primary Care Unavailable MYRA COTA Attending Unavailable ROHRBACHER, GIOVANNA Referring Unavailable ROHRBACHER, GIOVANNA Primary Care Unavailable ALTOROK, NEZAM I Attending Unavailable ALTOROK, NEZAM I Attending Unavailable ALTOROK, NEZAM I Attending Unavailable ALTOROK, NEZAM I Attending Unavailable Allergies Allergy Classification Reported Allergen(s) Allergy Type Date of Onset Reaction(s) Facility (1 source) Penicillins Drug allergy (disorder) [facility] Repository (15 sources) Penicillin; Translations: [PENICILLIN] Drug Allergy 4 Confusion, Fever [facility] Repository (1 source) Ciprofloxacin; Translations: [CIPROFLOXACIN] Drug Allergy 4 [facility] Repository Medications Current Medications Medication Drug Class(es) Dates Sig (Normalized) Sig (Original) acetaminophen 500 mg oral capsule (17 sources) Start: 10-16-2023 take 1 capsule by mouth every six hours as needed Acetaminophen 500 mg capsule Active 500 MG PO Every 6 hours as needed October 16, 2023 12:00am Start: 09-23-2023 End: [...] 6 (six) hours as needed for pain. Active aspirin 81 mg delayed release oral tablet (14 sources) Platelet Aggregation Inhibitor, Nonsteroidal Anti-inflammatory Drug Start: 09-26-2023 End: 10-26-2023 take 1 tablet by mouth once daily Aspirin 81 mg tablet,delayed release (DR/EC) Active 81 MG PO Daily October 16, 2023 12:00am aspirin 81 mg ch ewable tablet Chew 1 tablet (81 mg total) and swallow in the morning. Active azithromycin 250 mg oral tablet (1 source) Macrolide Antimicrobial Start: 10-13-2024 Azithromycin 250 mg tablet Active 0 PO daily 6 October 13, 2024 12:00am Take 2 on day 1 and then take 1 for the next 4 days (days 2-5) ferrous sulfate 325 mg oral tablet (9 sources) Start: 12-29-2023 take 1 tablet by mouth twice daily Ferrous Sulfate (Feosol) 325 mg (65 mg iron) tablet Active 325 MG PO Twice daily December 28, 2023 11:00pm Start: 11-06-2023 take 1 tablet by irwin th in the morning, then take 1 tablet by mouth at mealtime ferrous sulfate 325 (65 FE) mg EC tablet Take 1 tablet (325 mg total) by mouth in the morning and 1 tablet (325 mg total) in the evening. Take with meals. 180 tablet 1 11/06/2023 Active fluticasone propionate 0.05 mg/actuat metered dose nasal spray (8 sources) Corticosteroid Start: 01-23-2024 take 2 spray(s) nasal route in the morning fluticasone propionate (FLONASE) 50 mcg/actuation nasal spray Administer 2 sprays into each nostril in the morning. 01/23/2024 Active Start: 01-23-2024 take 1 spray(s) nasa l route twice daily Fluticasone Propionate 50 mcg/actuation spray,suspension Active 0 .ROUTE .COMPLEX 48 January 23, 2024 7:38am USE 1 SPRAY IN EACH NOSTRIL TWICE A DAY Start: 12-29-2023 End: 01-23-2024 take 1 spray(s) nasal route twice daily Fluticasone Propionate (Flonase Allergy Relief) 50 mcg/actuation spray,suspension Discontinued 1 SPRAY INTRANASAL Twice daily 16 December 28, 2023 11:00pm January 23, 2024 7:38am administer into each nostril [id number] (MULTIVITAMIN 50 PLUS) tablet (1 source) Start: 10-06-2024 End: 10-06-2025 [id number]-[id number]-awrbeb (MULTIVITAMIN 50 PLUS) tablet Take 1 tablet by mouth in the morning. 10/06/2024 10/06/2025 Active predniSONE 2.5 mg oral table t (20 sources) Start: 04-13-2024 take 2 tablets by mouth once daily Prednisone 2.5 mg tablet Active 5 MG PO Daily April 12, 2024 11:00pm Start: 04-13-2024 take 5 mg by mouth once daily Prednisone Active 5 MG PO Daily April 13, 2024 12:00am Start: 10-16-2023 End: 04-13-2024 take 1 tablet by mouth once daily Prednisone 20 mg tablet Discontinued 20 MG PO Daily December 29, 2023 8:29am April 13, 2024 10:02am Start: 10-16-2023 take 0.5 tablet by m outh once daily in the morning predniSONE (DELTASONE) 20 mg tablet Take 2.5 mg by mouth in the morning. Until 01/09/24 then going to 1/2 tablet a day. 10/16/2023 Active Start: 10-16-2023 End: 12-29-2023 take 60 mg by mouth once daily Prednisone Discontinued 60 MG PO Daily October 16, 2023 1:00am December 29, 2023 9:30am Start: 09-27-2023 End: 12-29-2023 take 3 tablets by mouth once daily Prednisone 20 mg tablet Discontinued 60 MG PO Daily October 16, 2023 12:00am December 29, 2023 8:30am Start: 09-26-2023 End: 09-26-2023 predniSONE (DELTASONE) table t 60 mg tiZANidine 2 mg oral tablet (1 source) Central alpha-2 Adrenergic Agonist Start: 10-13-2024 take 1 tablet by mouth every eight hours as needed Tizanidine 2 mg tablet Active 2 MG PO Every 8 hours as needed for muscle spasticity 30 October 13, 2024 12:00am 0.9 ml tocilizumab 180 mg/ml prefilled syringe (4 sources) Interleukin-6 Receptor Antagonist inject 0.9 mL by subcutaneous injection every week ACTEMRA 162 mg/0.9 mL injection Inject 0.9 mL (162 mg total) under the skin once a week. Active vitamin b12 1 mg oral capsule (15 sources) Vitamin B12 Start: 10-16-2023 take 1 capsule by mouth once daily Cyanocobalamin (Vitamin B-12) 1,000 mcg capsule Active 1000 MCG PO Daily October 16, 2023 12:00am Start: 09-23-2023 End: 04-19-2024 take 1 tablet by mouth in the morning cyanocobalamin 1000 MCG tablet Take 1 tablet (1,000 mcg total) by mouth in the morning. 10/22/2023 04/19/2024 Active take 1 tablet by irwin th in the morning cyanocobalamin 250 MCG tablet Take 1 tablet (250 mcg total) by mouth in the morning. Active Completed/Discontinued Medications Medication Drug Class(es) Dates Sig (Normalized) Sig (Original) ciprofloxacin 500 mg oral tablet (5 sources) Quinolone Antimicrobial Start: 06-24-2018 End: 07-01-2018 take 1 tablet by mouth twice daily Ciprofloxacin Hcl 500 mg tablet Discontinued 500 MG PO Twice daily 14 June 23, 2018 11:00pm June 30, 2018 12:00am July 01, 2018 12:02am docusate sodium 50 mg / sennosides, [facility] 8.6 mg oral tablet (1 source) Start: [...] minutes. oxybutynin chloride 5 mg oral tablet (5 sources) Cholinergic Muscarinic Antagonist Start: 06-24-2018 End: 10-16-2023 take 1 tablet by mouth twice daily Oxybutynin Chloride 5 mg tablet Discontinued 5 MG PO Twice daily June [...] mg / trimethoprim 160 mg oral tablet (15 sources) Dihydrofolate Reductase Inhibitor Antibacterial, Sulfonamide Antimicrobial Start: 10-16-2023 End: 04-13-2024 take 1 tablet by mouth three times daily Sulfamethoxazole-Trimethoprim (Bactrim Ds) 800-160 mg tablet Discontinued 1 TAB PO Three times daily October 16, 2023 12:00am April 13, 2024 9:48am Start: 09-29-2023 End: 10-29-2023 take 1 tablet [...] Documented Date Episodic/Chronic Blindness and vision defects (8 sources) Bilateral visual impairment; 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, both eyes] 10-16-2023 Chronic Calculus of urinary tract (1 source) Personal history of urinary calculi; Translations: [PERSONAL HISTORY OF URINARY CALCULI] Onset: 12-26-2022 Episodic Deficiency and other anemia (9 sources) Normocytic anemia; Translations: [Anemia, unspecified] Onset: 11-06-2023 11-06-2023 Episodic Deficiency and other anemia (3 sources) Anemia; Translations: [Anemia, unspecified] 03-08-2024 Episodic Disorders of lipid metabolism (2 sources) Other hyperlipidemia; Translations: [Other hyperlipidemia] Onset: 01-28-2024 Chronic Esophageal disorders (8 sources) Gastroesophageal reflux disease; Translations: [Gastro-esophageal reflux disease without esophagitis] 10-16-2023 Chronic Genitourinary symptoms and ill-defined conditions (1 source) Increased frequency of urination; Translations: [Frequency of micturition] 07-12-2024 Episodic Neoplasms of unspecified nature or uncertain behavior (10 sources) Thrombocytosis; Translations: [Thrombocytosis] Onset: 11-06-2023 11-06-2023 Episodic Nutritional deficiencies (4 sources) Deficiency of other specified B group vitamins; Translations: [Cobalamin deficiency] Onset: 09-23-2023 09-23-2023 Episodic Other aftercare (5 sources) Post-discharge follow-up; Translations: [Encounter for follow-up examination after completed treatment for conditions other than malignant neoplasm] 10-16-2023 Episodic Other aftercare (2 sources) Encounter for follow-up examination after completed treatment for conditions other than malignant neoplasm; Translations: [Other follow-up examination] 10-16-2023 Episodic Other connective tissue disease (1 source) Unspecified symptoms and signs involving the nervous system; Translations: [Unspecified symptoms and signs involving the nervous system] Onset: 09-23-2023 Episodic Other connective tissue disease (1 source) Spasm; Translations: [Other muscle spasm] 10-13-2024 Episodic Other connective tissue disease (1 source) Other muscle spasm; Translations: [Spasm of muscle] 10-13-2024 Episodic Other injuries and conditions due to external causes (2 sources) At high risk for fall; Translations: [History of falling] 04-14-2024 Episodic Other injuries and conditions due to external causes (1 source) History of falling; Translations: [History of fall] 04-13-2024 Episodic Other skin disorders (2 sources) Dry skin dermatitis; Translations: [Xerosis cutis] 04-14-2024 Episodic Other skin disorders (1 source) Xerosis cutis; Translations: [Contact dermatitis and other eczema due to other specified agents] 04-13-2024 Episodic Otitis media and related conditions (12 sources) Dysfunction of eustachian tube; Translations: [Unspecified Eustachian tube disorder, unspecified ear] 12-29-2023 Episodic Spondylosis; intervertebral disc disorders; other back problems (1 source) Spondylosis without myelopathy or radiculopathy, cervical region; Translations: [SPONDYLS W/O MYELO-/RADICULOP CERV] Onset: 12-26-2022 Chronic Spondylosis; intervertebral disc disorders; other back problems (6 sources) Dorsalgia, unspecified; Translations: [Spinal stenosis, cervical region] Onset: 12-25-2022 Episodic Systemic lupus erythematosus and connective tissue disorders (20 sources) Other giant cell arteritis; Translations: [Temporal arteritis] Onset: 09-23-2023 10-16-2023 Chronic Unclassified (2 sources) Thrombocytosis, unspecified; Translations: [Thrombocytosis, unspecified] Onset: 09-23-2023 Unclassified (1 source) CVA symptoms Onset: 09-23-2023 Past or Other Problems Problem Classification Problem Date Documented Date Episodic/Chronic Blindness and vision defects (16 sources) Other visual disturbances; Translations: [Blurring of visual image] Onset: 09-23-2023 09-23-2023 Episodic Deficiency and other anemia (1 source) Anemia, unspecified; Translations: [Anemia, unspecified] Onset: 11-06-2023 Episodic E Codes: Fall (1 source) Fall on same level from slipping, tripping and stumbling without subsequent striking against object, initial encounter; Translations: [FALL SAME LVL SLIP NO STRK OBJ INIT] Onset: 04-26-2022 Episodic Immunizations and screening for infectious disease (4 sources) Other specified abnormal immunological findings in serum; Translations: [Encounter for screening for other viral diseases] Onset: 01-28-2024 Episodic Mood disorders (10 sources) Mood disorders Onset: 09-23-2023 09-23-2023 Other aftercare (2 sources) [facility] (current) use of systemic steroids; Translations: [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 (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) use of systemic steroids] Onset: 01-28-2024 Episodic Other connective tissue disease (1 source) Pain in lower limb Onset: 02-05-2024 Episodic Other connective tissue disease (12 sources) Neurological symptom; Translations: [Unspecified symptoms and signs involving the nervous system] Onset: 09-23-2023 09-23-2023 Episodic Other non-traumatic joint disorders (3 sources) [...] Test Name Value Interpretation Reference Range Facility 29on 11-02-2024 29 Addended by: LINDSAY TIERNEY on: 11/02/2024 10:24 AM Modules accepted: Orders [facility] 36on 11-02-2024 36 Spoke with patient's daughter. The orders were not faxed to [facility] last week. I refaxed the standing orders and mailed hard copies to patient. [facility] 36 Spoke with patient's daughter and they stated that [facility] did not receive. I will fax again and mail hard copies to patient. [facility] 36 The patient daught called stating they would like to speak with the MA to discuss the shot the patient receives every 14 days is not in the chart as well as lab apers are needing to be faxed over to [facility] because they have not been received. [facility] 36on 10-28-2024 36 Printed patient labs and fax them to the fax number provided. [facility] Orders Onlyon 10-28-2024 Orders Only [id number] Carlyle David M 1945 F [facility] Provider Department [place] 10/28/2024 JT CROOK I [facility] No family history on file [facility] 36on 10-25-2024 36 PT daughter called i n requesting labs to be sent to [email or web address]. Fax number provided is [phone]. Daughter stated that she wanted to know if she can have a standard order sent over from now on since these labs are required every three month. [facility] Telephoneon 10-25-2024 Telephone [phone] Carlyle David M 1945 F [facility] Provider Department [place] 10/25/2024 JT CROOK I [facility] RHEUM [facility] No family history on file [facility] Follow-Upon 10-06-2024 Follow-Up [id number] Carlyle David 1945 F [facility] Provider Department [place] 10/06/2024 JT CROOK I [facility] RHEUM [facility] No family history on file Level of Service:94474 MS OFFICE/OUTPATIENT ESTABLISHED MOD MDM 30 MIN [facility] Basophils Auto (Bld) [#/Vol] on 09-02-2024 Basophils (Bld) [#/Vol] Automated basoph il count 0.0-0.1 [facility] Basophils/100 WBC Auto (Bld) on 09-02-2024 Basophils/100 WBC (Bld) Automated basophil % 0. 2-2.0 [facility] Cholesterol in LDL Calc [Mas s/Vol]on 09-02-2024 Cholesterol in LDL [Mass/Vol] Cholesterol in LDL [Mass/volume] in Serum or Plasma by calculation [facility] Comment on above: <100 mg/dl [id number] 0-129 mg/dl NEAR OR ABOVE [id number] mg/dl BORDERLINE [id number] mg/dl HIGH>190 mg/dl VERY HIGH Cholesterol in VLDL Calc [Ma ss/Vol]on 09-02-2024 Cholesterol in VLDL [Mass/Vol] Cholesterol in VLDL [Mass/volume] in Serum or Plasma by calculation [facility] Eosinophils/100 WBC Auto (Bl d)on 09-02-2024 Eosinophils/100 WBC (Bld) Automated eosinophil % 0.9-7.0 [facility] Erythrocyte distribution wid th Auto (RBC) [Ratio]on 09-02-2024 Erythrocyte distribution width (RBC) [Ratio] Erythrocyte distribution width [Ratio] by Automated count 11.0-15.0 [facility] Estimated glomerular filtrat ion rate (GFR) non- Americanon 09-02-2024 GFR/1.73 sq M.predicted among non-blacks MDRD (S/P/Bld) [Vol rate/Area] Estimated glomerular filtration rate (GFR) non- >=60 mL/min/1.73 m 2 [facility] Globulin Calc (S) [Mass/Vol] on 09-02-2024 Globulin (S) [Mass/Vol] Serum globulin measurement by calculation (mass/volume) [facility] Hematocrit Auto (Bld) [Volum e fraction]on 09-02-2024 Hematocrit (Bld) [Volume fraction] Hematocrit [Volume Fraction] of Blood by Automated count 36.0-48.0 [facility] Hemoglobin [Mass/volume] in Bloodon 09-02-2024 Hemoglobin (Bld) [Mass/Vol] Hemoglobin [Mass/volume] in Blood 12.0-16.0 [facility] Iron binding capacity [Mass/ volume] in Serum or Plasmaon 09-02-2024 Iron binding capacity [Mass/Vol] Iron binding capacity [Mass/volume] in Serum or Plasma 250.0-450.0 [facility] Iron saturation [Mass Fracti on] in Serum or Plasmaon 09-02-2024 Iron saturation [Mass fraction] Iron saturation [Mass Fraction] in Serum or Plasma [facility] Laboratory - Chemistry and C hemistry - challengeon 09-02-2024 Albumin [Mass/Vol] 3.6 g/dL 3.4-5.0 [facility] ALP [Catalytic activity/Vol] 62 U/L 46-116 [facility] ALT [Catalytic activity/Vol] 25 U/L 14-59 [facility] AST [Catalytic activity/Vol] 19 U/L 15-37 [facility] Bilirubin [Mass/Vol] 0.5 mg/dL 0.2-1.0 [facility] Calcium [Mass/Vol] 8.9 mg/dL 8.5-10.1 [facility] Chloride [Moles/Vol] 107 mmol/L 98-107 [facility] Cholesterol [Mass/Vol] 315 mg/dL High <=200 [facility] Cholesterol in HDL [Mass/Vol] 99 mg/dL High 40-60 [facility] Comment on above: > or =60 mg/dl - LOW CARDIOVASCULAR RISK<40 mg/dl - HIGH CARDIOVASCULAR RISK CO2 [Moles/Vol] 32.2 mmol/L High 21.0-32.0 [facility] Cobalamin (Vitamin B12) [Mass/Vol] 1376 pg/mL Abnormal [id number] [facility] Comment on above: Performed at: - [address] [id number] Director: Bobby Mckeon PhD, Phone: [phone] Creatinine [Mass/Vol] 0.89 mg/dL 0.55-1.02 [facility] Ferritin [Mass/Vol] 363.0 ng/mL High 8.0-252.0 [facility] GFR/1.73 sq M.predicted MDRD (S/P/Bld) [Vol rate/Area] mL/min/{1.73_m2} >=60 mL/min/1.73 m 2 [facility] Glucose [Mass/Vol] 85 mg/dL 74-106 [facility] Iron [Mass/Vol] 121.0 ug/dL 50.0-170.0 [facility] Potassium [Moles/Vol] 4.0 mmol/L 3.5-5.1 [facility] Protein [Mass/Vol] 6.2 g/dL Low 6.4-8.2 [facility] Sodium [Moles/Vol] 144 mmol/L 136-145 [facility] Triglyceride [Mass/Vol] 86 mg/dL <=150 [facility] Urea nitrogen [Mass/Vol] 31.0 mg/dL High 7.0-18.0 [facility] Urea nitrogen/Creatinine [Mass ratio] 34.8 mg/mg [facility] Laboratory - Hematology and Cell countson 09-02-2024 ESR (Bld) [Velocity] 3 mm/h <=30 [facility] Immature granulocytes/100 WBC (Bld) 0.0 % 0.0-0.5 [facility] Leukocytes [#/volume] correc tyrone for nucleated erythrocytes in Blood by Automated counon 09-02-2024 WBC corrected for nucl RBC Auto (Bld) [#/Vol] Leukocytes [#/volume] corrected for nucleated erythrocytes in Blood by Automated coun 4.0-11.0 [facility] Lymphocytes Auto (Bld) [#/Vo l]on 09-02-2024 Lymphocytes (Bld) [#/Vol] Lymphocytes [#/volume] in Blood by Automated count 1.2-3.8 [facility] Lymphocytes/100 WBC Auto (Bl d)on 09-02-2024 Lymphocytes/100 WBC (Bld) Lymphocytes/100 leukocytes in Blood by Automated count 20.5-60.0 [facility] MCH Auto (RBC) [Entitic mass ]on 09-02-2024 MCH (RBC) [Entitic mass] MCH [Entitic ma ss] by Automated count 26.7-34.0 [facility] MCHC Auto (RBC) [Mass/Vol]on 09-02-2024 MCHC (RBC) [Mass/Vol] MCHC [Mass/volume] by Automated count 29.9-35.2 [facility] MCV Auto (RBC) [Entitic vol] on 09-02-2024 MCV (RBC) [Entitic vol] MCV [Entitic vol ume] by Automated count 81.0-99.0 [facility] Monocytes Auto (Bld) [#/Vol] on 09-02-2024 Monocytes (Bld) [#/Vol] Automated blood monocyte count 0.3-0.8 [facility] Monocytes/100 WBC Auto (Bld) on 09-02-2024 Monocytes/100 WBC (Bld) Automated monocyte % 1. 7-12.0 [facility] Neutrophils Auto (Bld) [#/Vo l]on 09-02-2024 Neutrophils (Bld) [#/Vol] Neutrophils [#/volume] in Blood by Automated count 1.4-6.5 [facility] Neutrophils/100 WBC Auto (Bl d)on 09-02-2024 Neutrophils/100 WBC (Bld) Automated neutrophil % Low 43.0-75.0 [facility] No Panel Informationon 09-02 Eosinophils # (Auto) 0.2 10 3/uL 0.0-0.7 [facility] Immature Granulocyte # (Auto) 0.00 10 3/uL 0.00-0.03 [facility] Platelet mean volume Auto (B ld) [Entitic vol]on 09-02-2024 Platelet mean volume (Bld) [Entitic vol] Platelet mean volume [Entitic volume] in Blood by Automated count Low 9.5-13.5 [facility] Platelets Auto (Bld) [#/Vol] on 09-02-2024 Platelets (Bld) [#/Vol] Platelets [#/vol ume] in Blood by Automated count 150-450 [facility] RBC Auto (Bld) [#/Vol]on RBC (Bld) [#/Vol] Erythrocytes [#/volu me] in Blood by Automated count Low 4.20-5.40 [facility] Serum or plasma albumin/glob ulin mass ratioon 09-02-2024 Albumin/Globulin [Mass ratio] Serum or plasma albumin/globulin mass ratio [facility] Serum or plasma anion gap de terminationon 09-02-2024 Anion gap [Moles/Vol] Serum or plasma an ion gap determination [facility] Serum or plasma total choles terol/high density lipoprotein (HDL) cholesterol mass artie 09-02-2024 Cholesterol.total/Choles terol in HDL [Mass ratio] Serum or plasma total cholesterol/high density lipoprotein (HDL) cholesterol mass rat [facility] Comment on above: 3.3 - 4.4 LOW RISK4. 4 - 7.1 AVERAGE RISK7.1 - 11.0 MODERATE RISK>11.0 HIGH RISK 36on 08-13-2024 36 Patients daughter contacted office requesting patient lab orders be faxed to [facility]. Faxed orders to number on their website, . Mailed copies of labs to patient as well. Normal [facility] Laboratory - Chemistry and C hemistry - challengeon 07-16-2024 Bilirubin Ql (U) Negative [facility] Glucose (U) [Mass/Vol] Negative [facility] Ketones Ql (U) Negative [facility] pH (U) 6.5 [pH] [facility] Specific gravity (U) [Rel density] 1.000 [facility] Urobilinogen (U) [Mass/Vol] 0.2 mg/dL [facility] Laboratory - Specimen inform ationon 07-16-2024 Appearance (U) cloudy [facility] Color (U) lightyellow [facility] Laboratory - Urinalysison Leukocyte esterase Test strip Ql (U) Negative [facility] Nitrite Ql (U) Negative [facility] Protein Ql (U) Negative [facility] No Panel Informationon 07-16 Urine Occult Blood Negative [facility] Follow-Upon 05-05-2024 Follow-Up [id number] Carlyle David 1945 F Date Provider Department Center 05/05/2024 [id number] I UTCF [facility] No family history on file Level of Service:82570 MS OFFICE/OUTPATIENT ESTABLISHED LOW MDM 20 MIN Reason for Visit and Comments: Follow-up [724355] - 1 headache a few weeks ago. Increased itching for a few months Normal [facility] Basophils Auto (Bld) [#/Vol] on 04-30-2024 Basophils (Bld) [#/Vol] Automated basoph il count 0.0-0.1 [facility] Basophils/100 WBC Auto (Bld) on 04-30-2024 Basophils/100 WBC (Bld) Automated basophil % 0. 2-2.0 [facility] Cholesterol in LDL Calc [Mas s/Vol]on 04-30-2024 Cholesterol in LDL [Mass/Vol] Cholesterol in LDL [Mass/volume] in Serum or Plasma by calculation [facility] Comment on above: <100 mg/dl [id number] 0-129 mg/dl NEAR OR ABOVE [id number] mg/dl BORDERLINE [id number] mg/dl HIGH>190 mg/dl VERY HIGH Cholesterol in VLDL Calc [Ma ss/Vol]on 04-30-2024 Cholesterol in VLDL [Mass/Vol] Cholesterol in VLDL [Mass/volume] in Serum or Plasma by calculation [facility] Eosinophils/100 WBC Auto (Bl d)on 04-30-2024 Eosinophils/100 WBC (Bld) Automated eosinophil % 0.9-7.0 [facility] Erythrocyte distribution wid th Auto (RBC) [Ratio]on 04-30-2024 Erythrocyte distribution width (RBC) [Ratio] Erythrocyte distribution width [Ratio] by Automated count 11.0-15.0 [facility] Estimated glomerular filtrat ion rate (GFR) non- Americanon 04-30-2024 GFR/1.73 sq M.predicted among non-blacks MDRD (S/P/Bld) [Vol rate/Area] Estimated glomerular filtration rate (GFR) non- >=60 [facility] Globulin Calc (S) [Mass/Vol] on 04-30-2024 Globulin (S) [Mass/Vol] Serum globulin measurement by calculation (mass/volume) [facility] Hematocrit Auto (Bld) [Volum e fraction]on 04-30-2024 Hematocrit (Bld) [Volume fraction] Hematocrit [Volume Fraction] of Blood by Automated count 36.0-48.0 [facility] Hemoglobin [Mass/volume] in Bloodon 04-30-2024 Hemoglobin (Bld) [Mass/Vol] Hemoglobin [Mass/volume] in Blood 12.0-16.0 [facility] Laboratory - Chemistry and C hemistry - challengeon 04-30-2024 Albumin [Mass/Vol] 3.3 g/dL Low 3.4-5.0 [facility] ALP [Catalytic activity/Vol] 49 U/L 46-116 [facility] ALT [Catalytic activity/Vol] 29 U/L 14-59 [facility] AST [Catalytic activity/Vol] 23 U/L 15-37 [facility] Bilirubin [Mass/Vol] 0.5 mg/dL 0.2-1.0 [facility] Calcium [Mass/Vol] 9.0 mg/dL 8.5-10.1 [facility] Chloride [Moles/Vol] 105 mmol/L 98-107 [facility] Cholesterol [Mass/Vol] 302 mg/dL High <=200 [facility] Cholesterol in HDL [Mass/Vol] 95 mg/dL High 40-60 [facility] Comment on above: > or =60 mg/dl - LOW CARDIOVASCULAR RISK<40 mg/dl - HIGH CARDIOVASCULAR RISK CO2 [Moles/Vol] 32.1 mmol/L High 21.0-32.0 [facility] Creatinine [Mass/Vol] 0.87 mg/dL 0.55-1.02 [facility] GFR/1.73 sq M.predicted MDRD (S/P/Bld) [Vol rate/Area] mL/min/{1.73_m2} >=60 [facility] Glucose [Mass/Vol] 85 mg/dL 74-106 [facility] Potassium [Moles/Vol] 3.8 mmol/L 3.5-5.1 [facility] Protein [Mass/Vol] 5.9 g/dL Low 6.4-8.2 [facility] Sodium [Moles/Vol] 143 mmol/L 136-145 [facility] Triglyceride [Mass/Vol] 87 mg/dL <=150 F [facility] Urea nitrogen [Mass/Vol] 25.0 mg/dL High 7.0-18.0 [facility] Urea nitrogen/Creatinine [Mass ratio] 28.7 mg/mg [facility] Laboratory - Hematology and Cell countson 04-30-2024 ESR (Bld) [Velocity] 4 mm/h <=30 [facility] Immature granulocytes/100 WBC (Bld) 0.2 % 0.0-0.5 [facility] Leukocytes [#/volume] correc tyrone for nucleated erythrocytes in Blood by Automated counon 04-30-2024 WBC corrected for nucl RBC Auto (Bld) [#/Vol] Leukocytes [#/volume] corrected for nucleated erythrocytes in Blood by Automated coun 4.0-11.0 [facility] Lymphocytes Auto (Bld) [#/Vo l]on 04-30-2024 Lymphocytes (Bld) [#/Vol] Lymphocytes [#/volume] in Blood by Automated count 1.2-3.8 [facility] Lymphocytes/100 WBC Auto (Bl d)on 04-30-2024 Lymphocytes/100 WBC (Bld) Lymphocytes/100 leukocytes in Blood by Automated count 20.5-60.0 [facility] MCH Auto (RBC) [Entitic mass ]on 04-30-2024 MCH (RBC) [Entitic mass] MCH [Entitic ma ss] by Automated count 26.7-34.0 [facility] MCHC Auto (RBC) [Mass/Vol]on 04-30-2024 MCHC (RBC) [Mass/Vol] MCHC [Mass/volume] by Automated count 29.9-35.2 [facility] MCV Auto (RBC) [Entitic vol] on 04-30-2024 MCV (RBC) [Entitic vol] MCV [Entitic vol ume] by Automated count 81.0-99.0 [facility] Monocytes Auto (Bld) [#/Vol] on 04-30-2024 Monocytes (Bld) [#/Vol] Automated blood monocyte count 0.3-0.8 [facility] Monocytes/100 WBC Auto (Bld) on 04-30-2024 Monocytes/100 WBC (Bld) Automated monocyte % 1. 7-12.0 [facility] Neutrophils Auto (Bld) [#/Vo l]on 04-30-2024 Neutrophils (Bld) [#/Vol] Neutrophils [#/volume] in Blood by Automated count 1.4-6.5 [facility] Neutrophils/100 WBC Auto (Bl d)on 04-30-2024 Neutrophils/100 WBC (Bld) Automated neutrophil % Low 43.0-75.0 [facility] No Panel Informationon 04-30 Eosinophils # (Auto) 0.2 10 3/uL 0.0-0.7 [facility] Immature Granulocyte # (Auto) 0.01 10 3/uL 0.00-0.03 [facility] Platelet mean volume Auto (B ld) [Entitic vol]on 04-30-2024 Platelet mean volume (Bld) [Entitic vol] Platelet mean volume [Entitic volume] in Blood by Automated count Low 9.5-13.5 [facility] Platelets Auto (Bld) [#/Vol] on 04-30-2024 Platelets (Bld) [#/Vol] Platelets [#/vol ume] in Blood by Automated count 150-450 [facility] RBC Auto (Bld) [#/Vol]on RBC (Bld) [#/Vol] Erythrocytes [#/volu me] in Blood by Automated count Low 4.20-5.40 [facility] Serum or plasma albumin/glob ulin mass ratioon 04-30-2024 Albumin/Globulin [Mass ratio] Serum or plasma albumin/globulin mass ratio [facility] Serum or plasma anion gap de terminationon 04-30-2024 Anion gap [Moles/Vol] Serum or plasma an ion gap determination [facility] Serum or plasma total choles terol/high density lipoprotein (HDL) cholesterol mass artie 04-30-2024 Cholesterol.total/Choles terol in HDL [Mass ratio] Serum or plasma total cholesterol/high density lipoprotein (HDL) cholesterol mass rat [facility] Comment on above: 3.3 - 4.4 LOW RISK4. 4 - 7.1 AVERAGE RISK7.1 - 11.0 MODERATE RISK>11.0 HIGH RISK Basophils Auto (Bld) [#/Vol] on 03-05-2024 Basophils (Bld) [#/Vol] 0.0 10 3/uL 0.0-0.1 [facility] Basophils/100 WBC Auto (Bld) on 03-05-2024 Basophils/100 WBC (Bld) 0.6 % 0.2-2.0 F [facility] Eosinophils/100 WBC Auto (Bl d)on 03-05-2024 Eosinophils/100 WBC (Bld) 1.7 % 0.9-7.0 [facility] Erythrocyte distribution wid th Auto (RBC) [Ratio]on 03-05-2024 Erythrocyte distribution width (RBC) [Ratio] 13.7 % 11.0-15.0 [facility] Hematocrit Auto (Bld) [Volum e fraction]on 03-05-2024 Hematocrit (Bld) [Volume fraction] 37.7 % 36.0-48.0 [facility] Hemoglobin [Mass/volume] in Bloodon 03-05-2024 Hemoglobin (Bld) [Mass/Vol] 12.2 g/dL 12.0-16.0 [facility] Iron binding capacity [Mass/ volume] in Serum or Plasmaon 03-05-2024 Iron binding capacity [Mass/Vol] 231.0 ug/dL Low 250.0-450.0 [facility] Iron saturation [Mass Fracti on] in Serum or Plasmaon 03-05-2024 Iron saturation [Mass fraction] 44.6 % [facility] Laboratory - Chemistry and C hemistry - challengeon 03-05-2024 Ferritin [Mass/Vol] 234.0 ng/mL 8.0-252.0 [facility] Iron [Mass/Vol] 103.0 ug/dL 50.0-170.0 [facility] Laboratory - Hematology and Cell countson 03-05-2024 Immature granulocytes/100 WBC (Bld) 0.3 % 0.0-0.5 [facility] Leukocytes [#/volume] correc tyrone for nucleated erythrocytes in Blood by Automated counon 03-05-2024 WBC corrected for nucl RBC Auto (Bld) [#/Vol] 6.9 10 3/uL 4.0-11.0 [facility] Lymphocytes Auto (Bld) [#/Vo l]on 03-05-2024 Lymphocytes (Bld) [#/Vol] 3.8 10 3/uL 1.2-3.8 [facility] Lymphocytes/100 WBC Auto (Bl d)on 03-05-2024 Lymphocytes/100 WBC (Bld) 54.9 % 20.5-60.0 [facility] MCH Auto (RBC) [Entitic mass ]on 03-05-2024 MCH (RBC) [Entitic mass] 31.4 pg 26.7-34.0 [facility] MCHC Auto (RBC) [Mass/Vol]on 03-05-2024 MCHC (RBC) [Mass/Vol] 32.4 g/dL 29.9-35.2 [facility] MCV Auto (RBC) [Entitic vol] on 03-05-2024 MCV (RBC) [Entitic vol] 96.9 fL 81.0-99.0 F [facility] Monocytes Auto (Bld) [#/Vol] on 03-05-2024 Monocytes (Bld) [#/Vol] 0.6 10 3/uL 0.3-0.8 [facility] Monocytes/100 WBC Auto (Bld) on 03-05-2024 Monocytes/100 WBC (Bld) 8.7 % 1.7-12.0 [facility] Neutrophils Auto (Bld) [#/Vo l]on 03-05-2024 Neutrophils (Bld) [#/Vol] 2.3 10 3/uL 1.4-6.5 [facility] Neutrophils/100 WBC Auto (Bl d)on 03-05-2024 Neutrophils/100 WBC (Bld) 33.8 % Low 43.0-75.0 [facility] No Panel Informationon 03-05 Eosinophils # (Auto) 0.1 10 3/uL 0.0-0.7 [facility] Immature Granulocyte # (Auto) 0.02 10 3/uL 0.00-0.03 [facility] Platelet mean volume Auto (B ld) [Entitic vol]on 03-05-2024 Platelet mean volume (Bld) [Entitic vol] 8.7 fL Low 9.5-13.5 [facility] Platelets Auto (Bld) [#/Vol] on 03-05-2024 Platelets (Bld) [#/Vol] 289 10 3/uL 150-450 [facility] RBC Auto (Bld) [#/Vol]on RBC (Bld) [#/Vol] 3.89 10 6/uL Low 4.20-5.40 [facility] Follow-Upon 01-28-2024 Follow-Up [id number] Carlyle David 1945 F Date Provider Department Center 01/28/2024 [id number] JASSO I [facility] No family history on file Level of Service:36864 MS OFFICE/OUTPATIENT ESTABLISHED MOD MDM 30 MIN Reason for Visit and Comments: Follow-up [[id number]] - [facility]. Neck pain with cramping Normal [facility] Basophils Auto (Bld) [#/Vol] on 12-29-2023 Basophils (Bld) [#/Vol] 0.0 10 3/uL 0.0-0.1 [facility] Basophils/100 WBC Auto (Bld) on 12-29-2023 Basophils/100 WBC (Bld) 0.3 % 0.2-2.0 [facility] Eosinophils/100 WBC Auto (Bl d)on 12-29-2023 Eosinophils/100 WBC (Bld) 0.6 % 0.9-7.0 [facility] Erythrocyte distribution wid th Auto (RBC) [Ratio]on 12-29-2023 Erythrocyte distribution width (RBC) [Ratio] 14.8 % 11.0-15.0 [facility] Hematocrit Auto (Bld) [Volum e fraction]on 12-29-2023 Hematocrit (Bld) [Volume fraction] 39.8 % 36.0-48.0 [facility] Hemoglobin [Mass/volume] in Bloodon 12-29-2023 Hemoglobin (Bld) [Mass/Vol] 12.6 g/dL 12.0-16.0 [facility] Iron binding capacity [Mass/ volume] in Serum or Plasmaon 12-29-2023 Iron binding capacity [Mass/Vol] 241.0 ug/dL 250.0-450.0 [facility] Iron saturation [Mass Fracti on] in Serum or Plasmaon 12-29-2023 Iron saturation [Mass fraction] 51.5 % [facility] Laboratory - Chemistry and C hemistry - challengeon 12-29-2023 Iron [Mass/Vol] 124.0 ug/dL 50.0-170.0 [facility] Laboratory - Hematology and Cell countson 12-29-2023 ESR (Bld) [Velocity] 5 mm/h <=30 [facility] Immature granulocytes/100 WBC (Bld) 0.8 % 0.0-0.5 [facility] Leukocytes [#/volume] correc tyrone for nucleated erythrocytes in Blood by Automated counon 12-29-2023 WBC corrected for nucl RBC Auto (Bld) [#/Vol] 8.9 10 3/uL 4.0-11.0 [facility] Lymphocytes Auto (Bld) [#/Vo l]on 12-29-2023 Lymphocytes (Bld) [#/Vol] 4.4 10 3/uL 1.2-3.8 [facility] Lymphocytes/100 WBC Auto (Bl d)on 12-29-2023 Lymphocytes/100 WBC (Bld) 49.7 % 20.5-60.0 [facility] MCH Auto (RBC) [Entitic mass ]on 12-29-2023 MCH (RBC) [Entitic mass] 31.0 pg 26.7-34.0 [facility] MCHC Auto (RBC) [Mass/Vol]on 12-29-2023 MCHC (RBC) [Mass/Vol] 31.7 g/dL 29.9-35.2 [facility] MCV Auto (RBC) [Entitic vol] on 12-29-2023 MCV (RBC) [Entitic vol] 98.0 fL 81.0-99.0 [facility] Monocytes Auto (Bld) [#/Vol] on 12-29-2023 Monocytes (Bld) [#/Vol] 0.7 10 3/uL 0.3-0.8 [facility] Monocytes/100 WBC Auto (Bld) on 12-29-2023 Monocytes/100 WBC (Bld) 7.3 % 1.7-12.0 [facility] Neutrophils Auto (Bld) [#/Vo l]on 12-29-2023 Neutrophils (Bld) [#/Vol] 3.7 10 3/uL 1.4-6.5 [facility] Neutrophils/100 WBC Auto (Bl d)on 12-29-2023 Neutrophils/100 WBC (Bld) 41.3 % 43.0-75.0 [facility] No Panel Informationon 12-28 Eosinophils # (Auto) 0.1 10 3/uL 0.0-0.7 [facility] Immature Granulocyte # (Auto) 0.07 10 3/uL 0.00-0.03 [facility] Platelet mean volume Auto (B ld) [Entitic vol]on 12-29-2023 Platelet mean volume (Bld) [Entitic vol] 8.3 fL 9.5-13.5 [facility] Platelets Auto (Bld) [#/Vol] on 12-29-2023 Platelets (Bld) [#/Vol] 262 10 3/uL 150-450 [facility] RBC Auto (Bld) [#/Vol]on RBC (Bld) [#/Vol] 4.06 10 6/uL 4.20-5.40 [facility] 36on 12-10-2023 36 Please review notes from [facility]. Patient should be contacting [facility] for assistance on how to proceed. [facility] 36 Spoke with daughter, pt will have to pay $700 for the Actemra through insurance and does not qualify for PAP due to income, would like to know what you want to do. [facility] Telephoneon 12-10-2023 Telephone [phone] Carlyle David 1945 F Date Provider Department Center 12/10/2023 JT CROOK I [facility] No family history on file [facility] 36on 12-04-2023 36 Spoke with patient's daughter and they will fern picker tomorrow . [facility] 36 Yes, I have 2 availa ble samples of Actemra. I will contact patient and inform to fern picker at [facility] location. [facility] 36 Do we have Actemra samples Lindsay Perla. [facility] Follow-Upon 11-26-2023 Follow-Up [id number] Carlyle David 1945 F Date Provider Department Center 11/26/2023 [id number] BOUDREAUX I UTCF [facility] No family history on file Level of Service:70300 MS OFFICE/OUTPATIENT ESTABLISHED MOD MDM 30 MIN Reason for Visit and Comments: Follow-up [[id number]] - [facility] Normal [facility] Basophils Auto (Bld) [#/Vol] on 10-30-2023 Basophils (Bld) [#/Vol] 0.0 10 3/uL 0.0-0.1 [facility] Basophils/100 WBC Auto (Bld) on 10-30-2023 Basophils/100 WBC (Bld) 0.2 % 0.2-2.0 F [facility] Blood Mycobacterium tubercul osis tuberculin stimulated gamma interferon detectionon 10-30-2023 M. tuberculosis tuberculin stim IFN-g Ql (Bld) Comment . [facility] Comment on above: QuantiFERON-TB Gold Plus is [...] stim IFN-g Ql (Bld) 0.03 [IU]/mL . [facility] Blood mitogen stimulated hussain ma interferon measurement (units/volume)on 10-30-2023 Mitogen stimulated gamma interferon Qn (Bld) >10.00 [IU]/mL . [facility] Cholesterol in LDL Calc [Mas s/Vol]on 10-30-2023 Cholesterol in LDL [Mass/Vol] 161.0 mg/dL [facility] Comment on above: <100 mg/dl [id number] 0-129 mg/dl NEAR OR ABOVE [id number] mg/dl BORDERLINE [id number] mg/dl HIGH>190 mg/dl VERY HIGH Cholesterol in VLDL Calc [Ma ss/Vol]on 10-30-2023 Cholesterol in VLDL [Mass/Vol] 12.4 mg/dL [facility] Eosinophils/100 WBC Auto (Bl d)on 10-30-2023 Eosinophils/100 WBC (Bld) 0.4 % 0.9-7.0 [facility] Erythrocyte distribution wid th Auto (RBC) [Ratio]on 10-30-2023 Erythrocyte distribution width (RBC) [Ratio] 19.2 % 11.0-15.0 [facility] Estimated glomerular filtrat ion rate (GFR) non- Americanon 10-30-2023 GFR/1.73 sq M.predicted among non-blacks MDRD (S/P/Bld) [Vol rate/Area] mL/min/{1.73_m2} >=60 [facility] Globulin Calc (S) [Mass/Vol] on 10-30-2023 Globulin (S) [Mass/Vol] 3.4 g/dL F [facility] Hematocrit Auto (Bld) [Volum e fraction]on 10-30-2023 Hematocrit (Bld) [Volume fraction] 34.9 % 36.0-48.0 [facility] Hemoglobin [Mass/volume] in Bloodon 10-30-2023 Hemoglobin (Bld) [Mass/Vol] 10.8 g/dL 12.0-16.0 [facility] Hepatitis C virus IgG Ab [Pr esence] in Serum or Plasma by Immunoassayon 10-30-2023 HCV IgG IA Ql Non-Reactive Non Reactive [facility] Comment on above: HCV antibody alone d oes not differentiate betweenpreviously resolved infection and active infection.Equivocal and Reactive HCV antibody results should befollowed up with an HCV RNA test to support the diagnosisof active HCV infection. Laboratory - Chemistry and C hemistry - challengeon 10-30-2023 Albumin [Mass/Vol] 2.9 g/dL 3.4-5.0 [facility] ALP [Catalytic activity/Vol] 60 U/L 46-116 [facility] ALT [Catalytic activity/Vol] 24 U/L 14-59 [facility] AST [Catalytic activity/Vol] 10 U/L 15-37 [facility] Bilirubin [Mass/Vol] 0.4 mg/dL 0.2-1.0 [facility] Calcium [Mass/Vol] 8.3 mg/dL 8.5-10.1 [facility] Chloride [Moles/Vol] 102 mmol/L 98-107 [facility] Cholesterol [Mass/Vol] 308 mg/dL <=200 [facility] Cholesterol in HDL [Mass/Vol] 135 mg/dL 40-60 [facility] Comment on above: > or =60 mg/dl - LOW CARDIOVASCULAR RISK<40 mg/dl - HIGH CARDIOVASCULAR RISK CO2 [Moles/Vol] 30.3 mmol/L 21.0-32.0 [facility] Creatinine [Mass/Vol] 0.78 mg/dL 0.55-1.02 [facility] GFR/1.73 sq M.predicted MDRD (S/P/Bld) [Vol rate/Area] mL/min/{1.73_m2} >=60 [facility] Glucose [Mass/Vol] 71 mg/dL 74-106 [facility] Potassium [Moles/Vol] 4.1 mmol/L 3.5-5.1 [facility] Protein [Mass/Vol] 6.3 g/dL 6.4-8.2 [facility] Sodium [Moles/Vol] 140 mmol/L 136-145 [facility] Triglyceride [Mass/Vol] 62 mg/dL <=150 F [facility] Urea nitrogen [Mass/Vol] 23.0 mg/dL 7.0-18.0 [facility] Urea nitrogen/Creatinine [Mass ratio] 29.5 mg/mg [facility] Laboratory - Hematology and Cell countson 10-30-2023 ESR (Bld) [Velocity] 21 mm/h <=30 [facility] Immature granulocytes/100 WBC (Bld) 1.8 % 0.0-0.5 [facility] Leukocytes [#/volume] correc tyrone for nucleated erythrocytes in Blood by Automated counon 10-30-2023 WBC corrected for nucl RBC Auto (Bld) [#/Vol] 11.4 10 3/uL 4.0-11.0 [facility] Lymphocytes Auto (Bld) [#/Vo l]on 10-30-2023 Lymphocytes (Bld) [#/Vol] 3.9 10 3/uL 1.2-3.8 [facility] Lymphocytes/100 WBC Auto (Bl d)on 10-30-2023 Lymphocytes/100 WBC (Bld) 34.2 % 20.5-60.0 [facility] MCH Auto (RBC) [Entitic mass ]on 10-30-2023 MCH (RBC) [Entitic mass] 29.4 pg 26.7-34.0 [facility] MCHC Auto (RBC) [Mass/Vol]on 10-30-2023 MCHC (RBC) [Mass/Vol] 30.9 g/dL 29.9-35.2 [facility] MCV Auto (RBC) [Entitic vol] on 10-30-2023 MCV (RBC) [Entitic vol] 95.1 fL 81.0-99.0 F [facility] Monocytes Auto (Bld) [#/Vol] on 10-30-2023 Monocytes (Bld) [#/Vol] 0.8 10 3/uL 0.3-0.8 [facility] Monocytes/100 WBC Auto (Bld) on 10-30-2023 Monocytes/100 WBC (Bld) 7.3 % 1.7-12.0 F [facility] Mycobacterium tuberculosis s timulated gamma interferon [Interpretation] in Blood Qualon 10-30-2023 M. tuberculosis stim IFN-g Ql (Bld) [Interp] Negative Negative [facility] Comment on above: No response to M tub erculosis antigens detected.Infection with M tuberculosis is unlikely, but high riskindividuals should be considered for additional testing(ATS/IDSA/CDC Clinical Practice Guidelines, 2017). Thereference range is an Antigen minus Nil result of <0.35IU/mL.Chemiluminescence immunoassay methodologyPerformed at: [facility] [address] [id number] Director: Bobby Mckeon PhD, Phone: [phone] Neutrophils Auto (Bld) [#/Vo l]on 10-30-2023 Neutrophils (Bld) [#/Vol] 6.4 10 3/uL 1.4-6.5 [facility] Neutrophils/100 WBC Auto (Bl d)on 10-30-2023 Neutrophils/100 WBC (Bld) 56.1 % 43.0-75.0 [facility] No Panel Informationon 10-29 Eosinophils # (Auto) 0.0 10 3/uL 0.0-0.7 [facility] Hepatitis B Core Total Antibody Negative Negative [facility] Comment on above: Performed at: [facility] - [facility] [address] [id number] Director: Bobby Mckeon PhD, Phone: [phone] Immature Granulocyte # (Auto) 0.20 10 3/uL 0.00-0.03 [facility] Miscellaneous Test COMMENT . [facility] Comment on above: Test Ordered: [id number] Hep Be AgHep Be Ag Negative CB Reference Range: NegativePerformed at: [facility] - [facility] [id number] [place], [place] [id number] Director: Bobby Mckeon PhD, Phone: [phone] TB Test (QFT) Incubation See comment . [facility] Comment on above: Incubation performed . Reference Range: . Platelet mean volume Auto (B ld) [Entitic vol]on 10-30-2023 Platelet mean volume (Bld) [Entitic vol] 8.2 fL 9.5-13.5 [facility] Platelets Auto (Bld) [#/Vol] on 10-30-2023 Platelets (Bld) [#/Vol] 287 10 3/uL 150-450 [facility] RBC Auto (Bld) [#/Vol]on RBC (Bld) [#/Vol] 3.67 10 6/uL 4.20-5.40 [facility] Serum or plasma albumin/glob ulin mass ratioon 10-30-2023 Albumin/Globulin [Mass ratio] 0.9 {ratio} [facility] Serum or plasma anion gap de terminationon 10-30-2023 Anion gap [Moles/Vol] 11.8 mmol/L Fi [facility] Serum or plasma total choles terol/high density lipoprotein (HDL) cholesterol mass artie 10-30-2023 Cholesterol.total/Choles terol in HDL [Mass ratio] 2.3 {ratio} [facility] Comment on above: 3.3 - 4.4 LOW RISK4. 4 - 7.1 AVERAGE RISK7.1 - 11.0 MODERATE RISK>11.0 HIGH RISK Whole blood measurement of M ycobacterium tuberculosis stimulated gamma interferon relon 10-30-2023 M. tuberculosis stim IFN-g by CD4+ CD8+ T-cells corrected for background Qn (Bld) 0.03 [IU]/mL . [facility] BASIC METABOLIC PANLon 09-26 Anion gap [Moles/Vol] 8 mmol/L Normal 5-[address] [facility] Comment on above: Performed By: #### C BCA, CMP, 1987-12, FEPR, 2276-4, 2284-8, 96737-5, 2132-9, 14335-5, 78676-0, 5130-0, 57600-0, 26296-1, 27266-4, 3357-1, 8092-9, 62673-3, 57692-0, 52979-4, 69329-3, 52969-1 #### [facility] ([id number]) [address], [address] [place] [address] Calcium [Mass/Vol] 7.9 mg/dL Low 8.5-10.5 [facility] Comment on above: Performed By: #### C BCA, CMP, 1987-12, FEPR, 227-4, 2284-8, 43759-1, 2132-9, 55434-4, 39713-1, 5130-0, 46222-0, 69027-8, 83444-2, 3357-1, 8092-9, 51431-5, 14090-5, 09627-0, 90886-6, 27528-1 #### [facility] ([id number]) [address], [address] [place] [address] Chloride [Moles/Vol] 103 mmol/L Normal 98-109 [facility] Comment on above: Performed By: #### C BCA, CMP, 1987-12, FEPR, 2276-4, 2284-8, 86904-7, 2132-9, 82756-6, 37316-3, 5130-0, 21216-4, 70674-0, 10070-2, 3357-1, 8092-9, 31482-1, 24763-9, 62955-1, 05317-1, 49295-2 #### [facility] ([id number]) [address], [address] [place] [address] CO2 [Moles/Vol] 30 mmol/L Normal 22-32 [facility] Comment on above: Performed By: #### C SHARATH, KELVIN, 1986-12, FEPR, 2276-4, 2284-8, 32426-0, 2132-9, 53625-6, 18668-1, 5130-0, 76882-6, 29225-0, 54732-8, 3357-1, 8092-9, 47248-6, 10429-1, 39520-4, 11257-8, 70452-1 #### [facility] ([id number]) [address] [place] [address], [address] [address] Creatinine [Mass/Vol] 0.65 mg/dL Normal 0.40-1.00 [facility] Comment on above: Result Comment: METH OD TRACEABLE TO IDMS STANDARD Performed By: #### C SHARATH, KELVIN, 1986-12, FEPR, 2275-4, 2284-8, 90026-4, 2132-9, 73668-6, 24621-7, 5130-0, 05970-2, 91078-4, 99624-0, 3357-1, 8092-9, 51353-2, 46299-3, 31479-9, 82892-8, 64222-3 #### [facility] ([id number]) [address] [place] [address], [address] [place] [address] eGFR (CKD-EPI) NON-RACE DEPENDENT >90 Normal >59 [facility] Comment on above: Result Comment: Reported eGFR is based on the CKD-EPI 2020 equation that does not use a race coefficient. Performed By: #### C SHARATH, KELVIN, 1986-12, FEPR, 227-4, 2284-8, 96420-0, 2132-9, 85850-2, 75452-3, 5130-0, 82399-9, 82884-1, 26507-3, 3357-1, 8092-9, 25489-4, 67768-6, 15389-9, 36153-5, 45062-1 #### [facility] ([id number]) [address], [address] [place] [address] Glucose [Mass/Vol] 79 mg/dL Normal 65-99 [facility] Comment on above: Performed By: #### C BCA, CMP, 1987-12, FEPR, 227-4, 2283-8, 76158-2, 2132-9, 86103-2, 56443-3, 5130-0, 60034-9, 38063-5, 55210-5, 3357-1, 8092-9, 82482-6, 71613-0, 78213-8, 12693-9, 69490-7 #### [facility] ([id number]) [address], [address] [place] [address] Potassium [Moles/Vol] 3.9 mmol/L Normal 3.5-5.0 [facility] Comment on above: Performed By: #### C BCA, CMP, 1987-12, FEPR, 2275-4, 2283-8, 80085-7, 2131-9, 90136-2, 21069-0, 5130-0, 61867-0, 03533-1, 16917-4, 3357-1, 8092-9, 46627-1, 96501-6, 75600-5, 22867-6, 61803-2 #### [facility] ([id number]) [address], [address] [place] [address] Sodium [Moles/Vol] 141 mmol/L Normal 134-146 [facility] Comment on above: Performed By: #### C BCA, CMP, 1987-12, FEPR, 227-4, 2284-8, 55990-5, 2132-9, 19321-7, 54236-7, 5130-0, 91936-2, 18230-8, 61306-0, 3357-1, 8092-9, 57998-0, 48101-6, 97840-0, 20684-1, 57355-4 #### [facility] ([id number]) [address] [place] [address], [address] [place] [address] Urea nitrogen [Mass/Vol] 26 mg/dL Normal 5-27 [facility] Comment on above: Performed By: #### C BCA, CMP, 1988-5, FEPR, 2276-4, 2284-8, 15361-2, 2132-9, 55045-7, 42693-9, 5130-0, 26649-6, 40395-0, 26064-6, 3357-1, 8092-9, 36271-2, 01956-2, 37013-7, 30851-9, 52961-0 #### [facility] ([id number]) [address] [place] [address], [address] [place] [address] Basic Metabolic Panelon - Anion gap [Moles/Vol] 8 mmol/L 5 - 15 mmol/L [facility] Calcium [Mass/Vol] 7.9 mg/dL Low 8.5 - 10. 5 mg/dL [facility] Chloride [Moles/Vol] 103 mmol/L 98 - 10 9 mmol/L [facility] CO2 [Moles/Vol] 30 mmol/L 22 - 32 mmol/L [facility] Creatinine [Mass/Vol] 0.65 mg/dL 0.40 - 1.00 mg/dL [facility] Comment on above: METHOD TRACEABLE TO IDMS STANDARD eGFR (CKD-EPI)non-race dependent - PINF [facility] Comment on above: Reported eGFR is based on the CKD-EPI 2020 equation that does not use a race coefficient. Glucose [Mass/Vol] 79 mg/dL 65 - 99 mg/dL [facility] Interpretation and review of laboratory results Abnormal [facility] Potassium [Moles/Vol] 3.9 mmol/L 3.5 - 5.0 mmol/L [facility] Sodium [Moles/Vol] 141 mmol/L 134 - 146 mmol/L [facility] Urea nitrogen [Mass/Vol] 26 mg/dL 5 - 27 mg/dL [facility] CBC AND AUTO DIFFon 09-26-19 24 ABSOLUTE BASOPHIL 0.1 X10E9/L Normal 0.0-0.2 [facility] Comment on above: Performed By: #### C BCA, CMP, 1987-12, FEPR, 227-4, 2284-8, 48751-8, 2132-9, 45853-0, 88999-5, 5130-0, 38446-3, 47812-7, 32247-5, 3357-1, 8092-9, 68559-9, 30352-8, 93221-5, 28289-3, 60840-6 #### [facility] ([id number]) [address] [place] [address], [address] [place] [address] ABSOLUTE NEUTROPHIL 7.1 X10E9/L High 1.5-6.6 [facility] Comment on above: Performed By: #### C BCA, CMP, 1987-12, FEPR, 2275-4, 2284-8, 38627-7, 2132-9, 30913-9, 57663-7, 5130-0, 21065-6, 36485-9, 54708-9, 3357-1, 8092-9, 72058-4, 45865-8, 60864-2, 37509-1, 39474-0 #### [facility] ([id number]) [address] [place] [address], [address] [place] [address] Basophils/100 WBC (Bld) 0.8 % Normal [facility] Comment on above: Performed By: #### C BCA, CMP, 1987-12, FEPR, 227-4, 2284-8, 58279-6, 2132-9, 79519-2, 54490-4, 5130-0, 40806-3, 23307-7, 38733-2, 3357-1, 8092-9, 13712-5, 40996-0, 59114-4, 78399-7, 33880-6 #### [facility] ([id number]) [address], [address] [place] [address] Eosinophils (Bld) [#/Vol] 0.0 10*3/uL Normal 0.0-0.4 [facility] Comment on above: Performed By: #### C BCA, CMP, 1987-12, FEPR, 227-4, 2284-8, 48497-4, 2132-9, 87473-8, 77535-9, 5130-0, 54345-0, 72267-9, 07460-2, 3357-1, 8092-9, 02503-5, 71687-6, 27232-6, 55156-9, 40550-7 #### [facility] ([id number]) [address], [address] [place] [address] Eosinophils/100 WBC (Bld) 0.0 % Normal [facility] Comment on above: Performed By: #### C BCA, CMP, 1987-12, FEPR, 2275-4, 2284-8, 25732-5, 2132-9, 61217-1, 55479-0, 5130-0, 86847-8, 90734-1, 90931-7, 3357-1, 8092-9, 81372-7, 72316-7, 26508-8, 80922-7, 06787-6 #### [facility] ([id number]) [address], [address] [place] [address] Erythrocyte distribution width (RBC) [Ratio] 14.4 % Normal 11.5-15.0 [facility] Comment on above: Performed By: #### C BCA, CMP, 1987-12, FEPR, 2276-4, 2284-8, 65864-6, 2132-9, 59327-6, 31607-6, 5130-0, 13427-3, 56620-9, 34150-0, 3357-1, 8092-9, 58203-0, 19123-1, 09565-8, 20287-9, 25857-7 #### [facility] ([id number]) [address], [address] [place] [address] Hematocrit (Bld) [Volume fraction] 24.8 % Low 35-47 [facility] Comment on above: Performed By: #### C BCA, CMP, 1987-12, FEPR, 2275-4, 2284-8, 21873-7, 2132-9, 36477-2, 30042-9, 5130-0, 71896-1, 18236-9, 66104-7, 3357-1, 8092-9, 95157-6, 13348-4, 28173-3, 83745-4, 85270-0 #### [facility] ([id number]) [address], [address] [place] [address] Hemoglobin (Bld) [Mass/Vol] 8.2 g/dL Low 11.7-15.5 [facility] Comment on above: Performed By: #### C SHARATH, CMP, 1987-12, FEPR, 2275-4, 4-8, 64689-0, 2132-9, 37534-7, 88359-8, 5130-0, 53854-9, 32052-9, 08891-4, 3357-1, 8092-9, 48056-8, 90920-6, 94695-7, 05925-0, 55463-2 #### [facility] ([id number]) [address], [address] [place] [address] Lymphocytes (Bld) [#/Vol] 2.4 10*3/uL Normal 1.0-3.5 [facility] Comment on above: Performed By: #### C BCA, CMP, 1987-12, FEPR, 2276-4, 2284-8, 02144-4, 2132-9, 40849-4, 98386-3, 5130-0, 94881-0, 00686-0, 58619-9, 3357-1, 8092-9, 74058-5, 93698-2, 51825-0, 22635-5, 06504-7 #### [facility] ([id number]) [address], [address] [place] [address] Lymphocytes/100 WBC (Bld) 22.6 % Normal [facility] Comment on above: Performed By: #### C BCA, CMP, 1987-12, FEPR, 2276-4, 2284-8, 80422-0, 2132-9, 63445-1, 49720-2, 5130-0, 86579-3, 32189-0, 01021-6, 3357-1, 8092-9, 64040-9, 21748-9, 81410-8, 69919-1, 27942-4 #### [facility] ([id number]) [address], [address] [place] [address] MCH (RBC) [Entitic mass] 28.5 pg Normal 27-34 [facility] Comment on above: Performed By: #### C BCA, CMP, 1987-12, FEPR, 2276-4, 2284-8, 94066-2, 2132-9, 27648-3, 99983-6, 5130-0, 59120-2, 41737-3, 91286-2, 3357-1, 8092-9, 22791-9, 52568-6, 15521-2, 38154-8, 67741-5 #### [facility] ([id number]) [address], [address] [place] [address] MCHC (RBC) [Mass/Vol] 33.1 g/dL Normal 32-36 [facility] Comment on above: Performed By: #### C BCA, CMP, 1987-12, FEPR, 227-4, 2284-8, 48243-0, 2132-9, 02405-7, 92258-8, 5130-0, 02513-3, 62140-7, 47652-9, 3357-1, 8092-9, 71297-1, 16582-8, 67992-1, 56972-1, 66579-3 #### [facility] ([id number]) [address], [address] [place] [address] MCV (RBC) [Entitic vol] 86 fL Normal 80-[address] [facility] Comment on above: Performed By: #### C BCA, CMP, 1987-12, FEPR, 2276-4, 2284-8, 06527-1, 213-9, 77947-6, 90677-2, 5130-0, 06421-3, 04064-8, 30638-9, 3357-1, 8092-9, 27202-9, 18645-3, 63707-3, 06930-8, 41655-4 #### [facility] ([id number]) [address], [address] [place] [address] Monocytes (Bld) [#/Vol] 1.0 10*3/uL High 0-0.9 [facility] Comment on above: Performed By: #### C BCA, CMP, 1987-12, FEPR, 2276-4, 2284-8, 86768-9, 2131-9, 99930-5, 09232-9, 5130-0, 43109-6, 18001-7, 21349-8, 3357-1, 8092-9, 12256-4, 26316-4, 37733-8, 75323-2, 89721-4 #### [facility] ([id number]) [address], [address] [place] [address] Monocytes/100 WBC (Bld) 9.0 % Normal [facility] Comment on above: Performed By: #### C BCA, CMP, 1987-12, FEPR, 2276-4, 2284-8, 01886-6, 2132-9, 89207-7, 41056-8, 5130-0, 83988-7, 20559-7, 72814-7, 3357-1, 8092-9, 26289-2, 24513-8, 95978-0, 49302-5, 74780-6 #### [facility] ([id number]) [address], [address] [place] [address] Neutrophils/100 WBC (Bld) 67.6 % Normal [facility] Comment on above: Performed By: #### C SHARATH, CMP, 1987-12, FEPR, 2276-4, 2284-8, 71575-6, 2132-9, 59042-1, 82555-6, 5130-0, 07696-3, 27229-4, 37995-1, 3357-1, 8092-9, 18108-6, 29848-8, 37068-9, 14847-6, 18508-1 #### [facility] ([id number]) [address], [address] [place] [address] Platelet mean volume (Bld) [Entitic vol] 6.4 fL Low 7-12 [facility] Comment on above: Performed By: #### C SHARATH, CMP, 1987-12, FEPR, 6-4, 4-8, 30226-1, 2132-9, 50778-1, 53826-8, 5130-0, 60950-5, 56291-4, 33669-0, 3357-1, 8092-9, 10731-8, 74909-4, 89833-0, 78777-0, 30081-6 #### [facility] ([id number]) [address], [address] [place] [address] Platelets (Bld) [#/Vol] 686 10*3/uL High 150-450 [facility] Comment on above: Performed By: #### C BCA, CMP, 1987-12, FEPR, 2276-4, 2284-8, 75445-7, 2132-9, 22520-6, 24251-2, 5130-0, 22970-4, 95538-5, 50742-3, 3357-1, 8092-9, 64839-4, 44997-4, 10047-1, 45219-6, 36330-6 #### [facility] ([id number]) [address], [address] [place] [address] RBC COUNT 2.88 X10E12/L Low 3.80-5.20 [facility] Comment on above: Performed By: #### C BCA, CMP, 1987-, FEPR, 2275-4, 2284-8, 92679-8, 2132-9, 69746-6, 75095-8, 5130-0, 53650-5, 50458-1, 05237-8, 3357-1, 8092-9, 77119-1, 71595-7, 94163-8, 98593-2, 75687-9 #### [facility] ([id number]) [address], [address] [place] [address] WBC (Bld) [#/Vol] 10.5 10*3/uL Normal 4.0-11.0 [facility] Comment on above: Performed By: #### C BCA, CMP, 1987-12, FEPR, 2275-4, 2284-8, 73507-4, 2132-9, 42377-4, 34645-9, 5130-0, 07223-1, 51859-0, 98371-4, 3357-1, 8092-9, 39644-0, 58942-4, 63331-8, 86483-9, 29208-5 #### [facility] ([id number]) [address], [address] [place] [address] CBC auto differentialon 02-0 -2023 Basophils (Bld) [#/Vol] 0.1 10*3/uL [facility] Basophils/100 WBC (Bld) 0.8 % P [facility] Eosinophils (Bld) [#/Vol] 0.0 10*3/uL [facility] Eosinophils/100 WBC (Bld) 0.0 % [facility] Erythrocyte distribution width (RBC) [Ratio] 14.4 % 11.5 - 15.0 % [facility] Hematocrit (Bld) [Volume fraction] 24.8 % Low 35 - 47 % [facility] Hemoglobin (Bld) [Mass/Vol] 8.2 g/dL Low 11.7 - 15.5 g/dL [facility] Interpretation and review of laboratory results Abnormal [facility] Lymphocytes (Bld) [#/Vol] 2.4 10*3/uL [facility] Lymphocytes/100 WBC (Bld) 22.6 % [facility] MCH (RBC) [Entitic mass] 28.5 pg 27 - 34 pg [facility] MCHC (RBC) [Mass/Vol] 33.1 g/dL 32 - 3 6 g/dL [facility] MCV (RBC) [Entitic vol] 86 fL 80 - 100 fL [facility] Monocytes (Bld) [#/Vol] 1.0 10*3/uL High [facility] Monocytes/100 WBC (Bld) 9.0 % [facility] Neutrophils (Bld) [#/Vol] 7.1 10*3/uL High [facility] Neutrophils/100 WBC (Bld) 67.6 % [facility] Platelet mean volume (Bld) [Entitic vol] 6.4 fL Low 7 - 12 fL [facility] Platelets (Bld) [#/Vol] 686 10*3/uL High [facility] RBC (Bld) [#/Vol] 2.88 10*6/uL Low [facility] WBC corrected for nucl RBC Auto (Bld) [#/Vol] 10.5 [facility] Clinical Pathology Blood Sme ar Review Clinicalon 09-26-2023 Pathologist review Pathologist comment (Bld) [Interp] NOTE [facility] Comment on above: [facility] [address] [place] [address] Clinical Pathology Report Patient Name:JOSE DAVID:1945 (Age: 78)Gender:FTaken:09/23/2023eported:09/26/2023hysician(s):Olga Pan M.D. ([phone])Copy To: Rec. #:[id number]: #[id number] Final Pathologic Diagnosis Peripheral blood smear: Neutrophilic [...] Out hna09/26/2023Og Martinez M.D. Interpretation performed at [facility], [address] [place] [address], License number: [id number]. Clinical History R29.9. BLOOD SMEAR EVALUATION CBC (09/23/2023 0818): WBC = 12.1 X10E9/L; HGB = 9.1 g/dL; HCT = 27.8%; MCV = 85 fL; PLT = 924 X10E9/L OTHER LAB DATA: Noncontributory. BLOOD SMEAR: Leukocytes: Neutrophilic leukocytosis with cytotoxic changes and lymphocytopenia. Erythrocytes: Moderate normocytic normochromic anemia. Platelets: Thrombocytosis. Specimen(s) Received Blood Smear Review Fee Codes(s): 1; 18433 JAK2 V617F mutationon 2023 JAK2 gene p.[id number] [employer] Ql (Bld/Tiss) SEE COMMENTS 09/26/2023 10:21 AM [employer] Comment on above: NOTE Test Result Flag Unit RefValue ----- JAK2 V617F Mutation Detection, B JAK2 Result see interpretation JAK2 V617F Mutation Detection, B See Note Peripheral blood, JAK2 V617F mutation analysis: Negative for JAK2 V617F. A negative [id number] test result does not exclude the possibility [...] assay has been determined at 0.06% (see [facility] Interpretive Handbook for method details). This test was developed and its performance characteristics determined by [facility] in a manner consistent with CLIA requirements. This test has not been cleared or approved by the U.S. Food and Drug Administration. Test Performed by: [place] [address] Supply Chain Specialist: Thierry Duran M.D. Ph.D.; CLIA# [id number] JAK2 gene p.Bou109Poz Molgen Ql (Bld/Tiss)on 09-26-2023 [facility] Pathologist review Pathologi st comment (Bld) [Interp]on 09-26-2023 [facility] Surgical Pathologyon 024 [facility] [address] [place] [address] Surgical Pathology Consultation Patient Name:JOSE DAVID:1945 (Age: 78)Gender:FTaken:09/25/19 24Reported:09/26/2023hys ician(s):Kristel Reid MD ([phone])Copy To: Rec. #:[id number]: #[id number] Final Pathologic Diagnosis 1. Left temporal artery [...] correlation is suggested. Report Electronically Signed Out [facility]/09/26/2023José Luis Pederson MD Interpretation performed at [facility], [address] [place] [address], License number: [id number]. Clinical History Temporal arteries. Gross Description 1. Received in formalin labeled MULUGETA, left temporal artery biopsy is a segment of vasculature, 2 x 0.3 cm. The specimen is sectioned to reveal a pinpoint lumen. Are 3 segments of vasculature ranging from 0.5 cm to 1.2 cm in length by 0.2 cm in diameter. The specimen is submitted entirely in a single cassette. (1,ns,[id number], m1) . 2. Received in formalin labeled MULUGETA, right temporal artery biopsy are 3 segments of vasculature ranging from 0.5 cm to 1.2 cm in length by 0.2 cm in diameter. The segments are sectioned to reveal pinpoint lumens. The specimen are submitted entirely in cassettes A-B. (2,ns,[id number], m1) . 4RG Specimen(s) Received 1: Left temporal artery biopsy 2: Right temporal artery biopsy Fee Codes(s): 1; 25177, 94137 2; 51424, 22423 [facility] [employer] BCR/ABL by PCR w/ Reflexon 0 09-25-2023 Narrative diagnostic report [employer] Yaw (Bld/Tiss) [Interp] SEE COMMENTS 09/25/2023 04:24 PM [employer] Comment on above: NOTE Test Result Flag Unit RefValue ----- BCR/ABL1 Reflex, Qual/Quant Specimen Type EDTA WHOLE BLOOD BCR/ABL1 Reflex Result see interpretation Interpretation See Note Peripheral blood, BCR/ABL1 mRNA analysis, qualitative: Negative. No BCR/ABL1 mRNA transcripts were detected. Method summary: The presence or absence of BCR/ABL1 mRNA transcripts was evaluated using a qualitative, reverse child support specialist PCR-based assay. The assay detects nearly all published and theoretical BCR/ABL1 fusion forms including the common e13/e14-a2 (p210) and e1-a2 (p190) transcripts, as well as other rarer variants (e.g. e19-a2 (p230), e13/e14-a3, e1-a3, etc.). The limit of detection for this assay is 0.1%. Please contact the lab at [phone] with questions or if additional testing is required. See [facility] [employer] Test Catalog for additional method details. Signing Pathologist: Ammon Titus M.D (Jane)., Ph.D. ADDITIONAL INFORMATION This test was developed and its performance characteristics determined by [facility] in a manner consistent with CLIA requirements. This test has not been cleared or approved by the U.S. Food and Drug Administration. Test Performed by: [facility] - [address] [address] Supply Chain Specialist: Thierry Duran M.D. Ph.D.; IA# [id number] Narrative diagnostic report Martha Tidwell (Bld/Tiss) [Interp]on 09-25-2023 [facility] Surgical Pathologyon 024 Surgical Pathology Normal [facility] Comment on above: Result Comment: [facility] [address] [place] [address] Surgical Pathology Consultation ADDENDUM MS Patient Name:JOSE DAVID:1945 (Age: 78)Gender:FTaken:09/25/2023eported:09/26/2023hysician(s):Kristel Reid MD ([phone])Copy To: Rec. #:[id number]: #[id number] Final Pathologic Diagnosis 1. Left temporal artery [...] correlation is suggested. Report Electronically Signed Out waarnulfo/09/26/2023José Luis Pederson MD Addendum (PHS) Date Reported: 09/29/2023 In both parts of the specimen, and elastic special stain (with appropriate controls) demonstrates fragmentation and loss of the internal elastic lamina. Electronically Signed Out José Luis Pederson MD Interpretation performed at [facility], [facility] [facility], [place] [address], License number: [id number]. Clinical History Temporal arteries. Gross Description 1. Received in formalin labeled PEYTONA, left temporal artery biopsy is a segment of vasculature, 2 x 0.3 cm. The specimen is sectioned to reveal a pinpoint lumen. Are 3 segments of vasculature ranging from 0.5 cm to 1.2 cm in length by 0.2 cm in diameter. The specimen is submitted entirely in a single cassette. (1,ns,[id number], m1) . 2. Received in formalin labeled PEYTONA, right temporal artery biopsy are 3 segments of vasculature ranging from 0.5 cm to 1.2 cm in length by 0.2 cm in diameter. The segments are sectioned to reveal pinpoint lumens. The specimen are submitted entirely in cassettes A-B. (2,ns,[id number], m1) . /[facility] Specimen(s) Received 1: Left temporal artery biopsy 2: Right temporal artery biopsy Fee Codes(s): 1; 35099, 36877 2; 52271, 60884 dRVVT/dRVVT.excess phospholi pid Coag (PPP) [Ratio]on 09-25-2023 dRVVT excess phospholipid Coag Ql (PPP) Negative [facility] ANCAon 09-24-2023 Neutrophil cytoplasmic Ab IF Ql (S) See Below [facility] Comment on above: NOTE TEST RESULT [...] See below Reviewed by Arun Tucker, Ph.D D([facility]) This test is used as an aid in diagnosis of patients with autoimmune vasculitidies. The final interpretation should be done in conjunction with ANCA test results and clinical correlation. Test Performed By: [place] [address] Bufferer: Meño Hernandez III, M.D. CLIA #[id number]^ BASIC METABOLIC PANLon 09-24 Anion gap [Moles/Vol] 10 mmol/L Normal 5-15 [facility] Comment on above: Performed By: #### C BCA, CMP, 1987-12, FEPR, 2276-4, 2284-8, 68931-6, 2132-9, 84305-5, 73367-5, 5130-0, 40172-2, 93718-7, 25536-8, 3357-1, 8092-9, 11022-3, 80278-3, 28166-7, 19909-1, 40717-5 #### [facility] ([id number]) [address], [address] [place] [address] Calcium [Mass/Vol] 8.5 mg/dL Normal 8.5-10.5 [facility] [place] Comment on above: Performed By: #### C BCA, CMP, 1987-12, FEPR, 2276-4, 2284-8, 77318-6, 2132-9, 44528-4, 66079-8, 5130-0, 16251-5, 49559-7, 88398-0, 3357-1, 8092-9, 28526-1, 77929-9, 01025-6, 83479-8, 73322-0 #### [facility] ([id number]) [address], [address] [place] [address] Chloride [Moles/Vol] 101 mmol/L Normal 98-109 [facility] Comment on above: Performed By: #### C BCA, CMP, 1987-12, FEPR, 2276-4, 2284-8, 44645-0, 2132-9, 81102-1, 35976-5, 5130-0, 46414-2, 01632-2, 43846-4, 3357-1, 8092-9, 78310-3, 47730-5, 95309-5, 34182-2, 64650-1 #### [facility] ([id number]) [address], [address] [place] [address] CO2 [Moles/Vol] 29 mmol/L Normal 22-32 [facility] Comment on above: Performed By: #### C BCA, CMP, 1987-12, FEPR, 2275-4, 2284-8, 84754-5, 2132-9, 85579-1, 79199-3, 5130-0, 23200-3, 61215-9, 96636-3, 3357-1, 8092-9, 58985-0, 75603-3, 90731-0, 50078-6, 08289-0 #### [facility] ([id number]) [address], [address] [place], [place] [address] Creatinine [Mass/Vol] 0.61 mg/dL Normal 0.40-1.00 [facility] Comment on above: Result Comment: METH OD TRACEABLE TO IDMS STANDARD Performed By: #### C BCA, CMP, 1987-12, FEPR, 2275-4, 2284-8, 53969-6, 2132-9, 26171-9, 97872-9, 5130-0, 07603-2, 74462-4, 25198-9, 3357-1, 8092-9, 21886-9, 83408-7, 99296-6, 58880-0, 55355-3 #### [facility] ([id number]) [address], [address] [place] [address] eGFR (CKD-EPI) NON-RACE DEPENDENT >90 Normal >59 [facility] Comment on above: Result Comment: Reported eGFR is based on the CKD-EPI 2020 equation that does not use a race coefficient. Performed By: #### C BCA, CMP, 1987-12, FEPR, 2276-4, 2284-8, 00006-4, 2132-9, 91692-8, 62711-8, 5130-0, 05815-6, 83493-0, 40006-9, 3357-1, 8092-9, 37633-6, 15024-8, 47302-1, 77506-8, 37204-8 #### [facility] ([id number]) [address], [address] [place] [address] Glucose [Mass/Vol] 98 mg/dL Normal 65-99 [facility] Comment on above: Performed By: #### C BCA, CMP, 1987-12, FEPR, 2275-4, 228-8, 99409-9, 2132-9, 25034-0, 13430-9, 5130-0, 34923-7, 36123-3, 73055-2, 3357-1, 8092-9, 09781-2, 06577-0, 67675-3, 18773-2, 73398-0 #### [facility] ([id number]) [address], [address] [place] [address] Potassium [Moles/Vol] 3.5 mmol/L Normal 3.5-5.0 [facility] Comment on above: Performed By: #### C BCA, CMP, 1987-12, FEPR, 227-4, 2284-8, 45130-1, 2132-9, 68656-1, 48079-9, 5130-0, 25856-6, 89527-4, 67045-2, 3357-1, 8092-9, 98235-1, 04715-4, 52588-1, 10139-9, 50218-7 #### [facility] ([id number]) [address], [address] [place] [address] Sodium [Moles/Vol] 140 mmol/L Normal 134-146 [facility] Comment on above: Performed By: #### C BCA, CMP, 1987-12, FEPR, 2276-4, 2284-8, 55488-7, 2132-9, 03459-4, 17860-4, 5130-0, 66542-0, 97388-2, 04076-0, 3357-1, 8092-9, 96442-1, 18130-3, 93232-9, 63980-6, 25837-3 #### [facility] ([id number]) [address], [address] [place] [address] Urea nitrogen [Mass/Vol] 22 mg/dL Normal 5-27 [facility] Comment on above: Performed By: #### C BCA, [facility], 1987-12, FEPR, 2276-4, 2284-8, 99238-0, 2132-9, 96818-5, 65801-3, 5130-0, 84389-1, 76554-8, 19374-4, 3357-1, 8092-9, 50932-3, 36826-8, 93151-3, 73610-3, 14091-8 #### [facility] ([id number]) [address], [address] [place] [address] Basic Metabolic Panelon 08-27 Anion gap [Moles/Vol] 10 mmol/L 5 - 15 mmol/L [facility] Calcium [Mass/Vol] 8.5 mg/dL 8.5 - 10. 5 mg/dL [facility] Chloride [Moles/Vol] 101 mmol/L 98 - 10 9 mmol/L [facility] CO2 [Moles/Vol] 29 mmol/L 22 - 32 mmol/L [facility] Creatinine [Mass/Vol] 0.61 mg/dL 0.40 - 1.00 mg/dL [facility] Comment on above: METHOD TRACEABLE TO IDMS STANDARD eGFR (CKD-EPI)non-race dependent - PINF [facility] Comment on above: Reported eGFR is based on the CKD-EPI 2020 equation that does not use a race coefficient. Glucose [Mass/Vol] 98 mg/dL 65 - 99 mg/dL [facility] Potassium [Moles/Vol] 3.5 mmol/L 3.5 - 5.0 mmol/L [facility] Sodium [Moles/Vol] 140 mmol/L 134 - 146 mmol/L [facility] Urea nitrogen [Mass/Vol] 22 mg/dL 5 - 27 mg/dL [facility] CBC AND AUTO DIFFon 09-24-19 24 ABSOLUTE BASOPHIL 0.1 X10E9/L Normal 0.0-0.2 [facility] Comment on above: Performed By: #### C SHARATH, CMP, 1987-12, FEPR, 2276-4, 2284-8, 67377-2, 2132-9, 96304-1, 55684-7, 5130-0, 75102-7, 22804-9, 20990-8, 3357-1, 8092-9, 60656-2, 75809-4, 49897-9, 76444-4, 49022-9 #### [facility] ([id number]) [address], [address] [place] [address] ABSOLUTE NEUTROPHIL 16.3 X10E9/L High 1.5-6.6 [facility] Comment on above: Performed By: #### C BCA, CMP, 1987-12, FEPR, 2276-4, 2284-8, 16111-2, 2132-9, 13303-9, 41495-3, 5130-0, 76326-6, 88460-4, 46211-9, 3357-1, 8092-9, 93490-4, 62790-3, 10025-6, 64364-7, 74514-7 #### [facility] ([id number]) [address], [address] [place] [address] Basophils/100 WBC (Bld) 0.5 % Normal [facility] Comment on above: Performed By: #### C BCA, CMP, 1987-12, FEPR, 2276-4, 2284-8, 36327-9, 2132-9, 19716-5, 75703-4, 5130-0, 48834-2, 98905-1, 26965-8, 3357-1, 8092-9, 67856-9, 46692-2, 79966-7, 85522-3, 62963-9 #### [facility] ([id number]) [address], [address] [place] [address] Eosinophils (Bld) [#/Vol] 0.0 10*3/uL Normal 0.0-0.4 [facility] Comment on above: Performed By: #### C BCA, CMP, 1987-12, FEPR, 2275-4, 2284-8, 60515-0, 2132-9, 10976-7, 40191-5, 5130-0, 36384-3, 72030-4, 41288-8, 3357-1, 8092-9, 22619-9, 64658-8, 01762-6, 62073-3, 67224-5 #### [facility] ([id number]) [address], [address] [place] [address] Eosinophils/100 WBC (Bld) 0.0 % Normal [facility] Comment on above: Performed By: #### C BCA, CMP, 1987-12, FEPR, 227-4, 2284-8, 26185-2, 2132-9, 14763-7, 60115-8, 5130-0, 08495-9, 37870-3, 83351-4, 3357-1, 8092-9, 70962-1, 23484-1, 44806-1, 67341-4, 99440-9 #### [facility] ([id number]) [address], [address] [place] [address] Erythrocyte distribution width (RBC) [Ratio] 14.8 % Normal 11.5-15.0 [facility] Comment on above: Performed By: #### C SHARATH, KELVIN, 1987-12, FEPR, 2276-4, 2284-8, 27501-7, 2132-9, 91458-9, 06301-5, 5130-0, 88567-9, 19068-5, 16233-1, 3357-1, 8092-9, 35150-7, 13341-9, 83457-2, 87412-8, 71711-3 #### [facility] ([id number]) [address], [address] [place] [address] Hematocrit (Bld) [Volume fraction] 25.6 % Low 35-47 [facility] Comment on above: Performed By: #### C SHARATH, KELVIN, 1987-12, FEPR, 2275-4, 2284-8, 36240-4, 2132-9, 52448-7, 86255-7, 5130-0, 35643-0, 59916-1, 26168-0, 3357-1, 8092-9, 07342-7, 28417-9, 08129-9, 95337-6, 96210-4 #### [facility] ([id number]) [address], [address] [place] [address] Hemoglobin (Bld) [Mass/Vol] 8.3 g/dL Low 11.7-15.5 [facility] Comment on above: Performed By: #### C SHARATH, KELVIN, 1987-12, FEPR, 227-4, 2284-8, 91137-4, 2132-9, 70480-7, 30010-2, 5130-0, 33477-1, 74979-2, 66591-7, 3357-1, 8092-9, 40759-4, 87961-4, 77778-5, 65327-2, 35193-1 #### [facility] ([id number]) [address] [place] [address], [address] [place] [address] Lymphocytes (Bld) [#/Vol] 1.6 10*3/uL Normal 1.0-3.5 [facility] Comment on above: Performed By: #### C SHARATH, CMP, 1987-12, FEPR, 2276-4, 2284-8, 89938-1, 2132-9, 45141-0, 87572-4, 5130-0, 19827-4, 02004-3, 19718-3, 3357-1, 8092-9, 58752-3, 80844-8, 31544-5, 61031-5, 05859-5 #### [facility] ([id number]) [address] [place] [address], [address] [place] [address] Lymphocytes/100 WBC (Bld) 8.3 % Normal [facility] Comment on above: Performed By: #### C SHARATH, KELVIN, 1987-12, FEPR, 227-4, 2284-8, 48702-6, 2132-9, 21717-6, 34022-9, 5130-0, 22346-2, 53285-8, 74910-0, 3357-1, 8092-9, 61209-2, 53112-8, 04038-9, 89212-0, 79900-9 #### [facility] ([id number]) [address] [place] [address], [address] [place] [address] MCH (RBC) [Entitic mass] 27.8 pg Normal 27-34 [facility] Comment on above: Performed By: #### C SHARATH, CMP, 1987-12, FEPR, 2276-4, 2284-8, 80946-5, 2132-9, 71513-4, 83912-7, 5130-0, 63278-0, 89545-7, 18923-1, 3357-1, 8092-9, 31662-0, 94328-7, 42701-6, 42583-6, 36652-6 #### [facility] ([id number]) [address], [address] [place] [address] MCHC (RBC) [Mass/Vol] 32.5 g/dL Normal 32-[address] [facility] Comment on above: Performed By: #### C BCA, CMP, 1987-12, FEPR, 2276-4, 2284-8, 11727-4, 2132-9, 94119-8, 63125-5, 5130-0, 33885-7, 37409-7, 26346-8, 3357-1, 8092-9, 04073-6, 21566-7, 85795-4, 00174-0, 93786-8 #### [facility] ([id number]) [address], [address] [place] [address] MCV (RBC) [Entitic vol] 85 fL Normal 80-100 [facility] Comment on above: Performed By: #### C BCA, CMP, 1987-12, FEPR, 2275-4, 2284-8, 86778-9, 2132-9, 02846-8, 48084-5, 5130-0, 61078-6, 84275-5, 65062-1, 3357-1, 8092-9, 42070-6, 05393-8, 81185-9, 27047-7, 85890-1 #### [facility] ([id number]) [address], [address] [place] [address] Monocytes (Bld) [#/Vol] 1.0 10*3/uL High 0-0.9 [facility] Comment on above: Performed By: #### C BCA, CMP, 1987-12, FEPR, 2276-4, 2284-8, 39108-1, 2132-9, 45299-7, 49209-2, 5130-0, 11096-5, 85291-2, 57096-4, 3357-1, 8092-9, 45935-8, 15562-5, 34958-8, 36608-8, 23490-7 #### [facility] ([id number]) [address], [address] [place] [address] Monocytes/100 WBC (Bld) 5.0 % Normal [facility] Comment on above: Performed By: #### C BCA, CMP, 1987-12, FEPR, 2276-4, 2284-8, 13497-3, 2132-9, 18772-7, 06606-0, 5130-0, 10968-7, 37800-6, 09072-6, 3357-1, 8092-9, 19160-6, 37981-4, 43931-8, 18878-8, 23976-7 #### [facility] ([id number]) [address], [address] [place] [address] Neutrophils/100 WBC (Bld) 86.2 % Normal [facility] Comment on above: Performed By: #### C BCA, CMP, 1987-12, FEPR, 2276-4, 2284-8, 59080-7, 2132-9, 20169-0, 90962-8, 5130-0, 62356-8, 29349-7, 67599-4, 3357-1, 8092-9, 39502-3, 32906-4, 34866-9, 62361-9, 55538-7 #### [facility] ([id number]) [address], [address] [place] [address] Platelet mean volume (Bld) [Entitic vol] 6.5 fL Low 7-12 [facility] Comment on above: Performed By: #### C BCA, CMP, 1987-12, FEPR, 2276-4, 2284-8, 76103-1, 2132-9, 97682-4, 58446-9, 5130-0, 09567-7, 95097-1, 05371-7, 3357-1, 8092-9, 75295-2, 00228-9, 72279-0, 50524-3, 42735-5 #### [facility] ([id number]) [address], [address] [place] [address] Platelets (Bld) [#/Vol] 902 10*3/uL High 150-450 [facility] Comment on above: Performed By: #### C BCA, CMP, 1987-12, FEPR, 2276-4, 2284-8, 90754-5, 2132-9, 29478-5, 63691-5, 5130-0, 35774-7, 86612-7, 99449-1, 3357-1, 8092-9, 29261-0, 45117-4, 05725-1, 35718-0, 83325-4 #### [facility] ([id number]) [address], [address] [place] [address] RBC COUNT 3.00 X10E12/L Low 3.80-5.20 [facility] Comment on above: Performed By: #### C BCA, CMP, 1987-12, FEPR, 2276-4, 2284-8, 40646-3, 2132-9, 59383-8, 99275-0, 5130-0, 55764-5, 53347-1, 79946-2, 3357-1, 8092-9, 90938-6, 36505-9, 16019-7, 32474-6, 80094-9 #### [facility] ([id number]) [address], [address] [place] [address] WBC (Bld) [#/Vol] 18.9 10*3/uL High 4.0-11.0 [facility] Comment on above: Performed By: #### C BCA, CMP, 1987-12, FEPR, 2276-4, 2284-8, 28302-2, 2132-9, 91027-8, 45777-2, 5130-0, 46626-1, 05220-0, 29056-8, 3357-1, 8092-9, 62219-5, 32323-1, 15575-1, 53972-8, 44334-1 #### [facility] ([id number]) [address], [address] [place] [address] CBC auto differentialon 08-27 Basophils (Bld) [#/Vol] 0.1 10*3/uL [facility] Basophils/100 WBC (Bld) 0.5 % [facility] Eosinophils (Bld) [#/Vol] 0.0 10*3/uL [...] Abnormal [facility] Lymphocytes (Bld) [#/Vol] 1.6 10*3/uL [...] High [facility] Monocytes/100 WBC (Bld) 5.0 % [facility] Neutrophils (Bld) [#/Vol] 16.3 10*3/uL High [facility] Neutrophils/100 WBC (Bld) 86.2 % [facility] Platelet mean volume (Bld) [Entitic vol] 6.5 fL Low 7 - 12 fL [facility] Platelets (Bld) [#/Vol] 902 10*3/uL High [facility] RBC (Bld) [#/Vol] 3.00 10*6/uL Low zoidu WBC corrected for nucl RBC Auto (Bld) [#/Vol] 18.9 High [facility] Cardiac echo study Procedure Ordered By: Nacho Grant on 09-24-2023 Aortic root 2.80 cm [employer] Work Phone: AV mean gradient 6.00 mmHg [employer] Work Phone: [phone] AV peak gradient 8.64 mmHg [employer] Work Phone: [phone] AV peak kym 147.00 cm/s [employer] Work Phone: AV valve area 1.95 cm2 [employer] Work Phone: [phone] AV Velocity Ratio 0.77 [employer] Work Phone: [phone] AV VTI 33.60 cm [employer] Work Phone: [phone] E wave deceleration time 187.00 msec [employer] Work Phone: E/A ratio 0.72 [employer] Work Phone: Echo EF Estimated 63 % [employer] Work Phone: EF 63 % [employer] Work Phone: [phone] Energy loss index 1.88 [employer] Work Phone: [phone] FS 33 % 28 - 44 % [employer] Work Phone: [phone] Interventricular Septum Diastolic Thickness by 2D 10 cm [employer] Work Phone: IVS 1.00 cm 0.6 - 1.1 cm [employer] Work Phone: LA size 3.60 cm [employer] Work Phone: LA volume 48.00 cm3 [employer] Work Phone: LA Volume Index 31.8 mL/m2 [employer] Work Phone: Left Ventricle Mass [phone] g [employer] Work Phone: [phone] LV Diastolic Volume 71.20 mL [facility] Work Phone: [phone] LV ESV A2C 56.30 mL [facility] Work Phone: [phone] LV ESV A4C 33.20 mL [employer] Work Phone: [phone] LV RWT 2D 51.28 [employer] Work Phone: [phone] LV Systolic Volume 26.00 mL [facility] Work Phone: [phone] LVIDd 3.90 cm 3.78 - 5.25 cm [employer] Work Phone: [phone] LVIDs 2.60 cm 2.25 - 3.40 cm [employer] Work Phone: [phone] LVOT diameter 1.80 cm [employer] Work Phone: [phone] LVOT peak kym 1.37 m/s [employer] Work Phone: [phone] LVOT peak VTI 25.80 cm [employer] Work Phone: [phone] LVOT stroke volume 65.65 ml [facility] Work Phone: [phone] MV Peak A Kym 99.40 cm/s [employer] Work Phone: [phone] MV Peak E Kym 71.30 cm/s [employer] Work Phone: [phone] MV pressure 1/2 time 55.00 ms [facility] Work Phone: [phone] MV TDI E' (medial) 6.85 cm/s [facility] Work Phone: [phone] MV valve area p 1/2 method 4.00 cm2 [employer] Work Phone: [phone] PV peak gradient 4.16 mmHg [employer] Work Phone: [phone] PW 1.00 cm 0.6 - 1.1 cm [employer] Work Phone: [phone] RV diastolic dimension (basal) 29.0 mm [employer] Work Phone: TAPSE 1.88 cm [facility] [employer] Work Phone: TDI 9.68 cm/s [facility] Work Phone: Valve area - Index 1.3 [facility] [employer] Work Phone: ZLVIDD [phone] [facility] [employer] Work Phone: ZLVIDS [phone] [facility] Work Phone: [facility] Work Phone: Cardiac echo study Procedure on [...] for comparison. [facility]ELERA Radiology Study observation (narrative) [facility] BRAIN W WO CONTon 024 MR [...] of the major arterial structures in the [place]. The paranasal sinuses are clear. [...] Jewell MD on 09/24/2023 4:24 AM Normal [facility] MR Brain WO and W contrast [...] of the major arterial structures in the [place]. The paranasal sinuses are clear. [...] Gilbert Jewell MD on 09/24/2023 4:24 AM [facility] Gilbert Jewell M D - 09/24/2023 MR [...] of the major arterial structures in the [place]. The paranasal sinuses are clear. [...] Gilbert Jewell MD on 09/24/2023 4:24 AM [facility] Radiology Study observation (narrative) [facility] MR ORBIT W WO CONTon 024 MR [...] of the major arterial structures in the [place]. The paranasal sinuses are clear. [...] Gilbert Jewell MD on 09/24/2023 4:25 AM [facility] MR Orbit WO and W contrast [...] of the major arterial structures in the [place]. The paranasal sinuses are clear. [...] of the major arterial structures in the [place]. The paranasal sinuses are clear. [...] Gilbert Jewell MD on 09/24/2023 4:25 AM [facility] Radiology Study observation (narrative) [facility] MR Orbit WO and W contrast I VOrdered By: Gilbert Jewell on 09-24-2023 [facility] [employer] [facility] Work Phone: Neutrophil cytoplasmic Ab IF Ql (S)on 09-24-2023 [facility] Reticulocyteson 09-24-2023 Reticulocytes/100 RBC (Bld) 2.3 % High 0.4 - 2.2 % [facility] Reticulocytes/100 RBC (Bld)o n 09-24-2023 Interpretation and review of laboratory results Abnormal [facility] RETICULOCYTE COUNT 2.3 % High 0.4-2.2 [facility] Comment on above: Performed By: #### C BCA, CMP, 1988-5, FEPR, 2276-4, 2284-8, 09885-9, 2132-9, 73306-4, 79366-9, 5130-0, 46153-5, 78331-1, 81320-6, 3357-1, 8092-9, 06280-4, 55363-3, 95085-6, 81300-1, 82429-6 #### [facility] ([id number]) [address], [address] [place] [address] ACUTE HEPATITIS PANELon 08-27 ANTI HCV W/PCR REFLX Non-Reactive Normal NRCT Pr [facility] Comment on above: Result Comment: If recent infection suspected, recommend repeat testing (>2 months). Ievmmf-bs-twwxag ratio is <0.80. Performed By: #### C BCA, CMP, 1987-12, FEPR, 2276-4, 2284-8, 72166-3, 2132-9, 38952-9, 60466-4, 5130-0, 61780-1, 87901-0, 09013-7, 3357-1, 8092-9, 82016-3, 12245-8, 17008-9, 38186-3, 97924-2 #### [facility] ([id number]) [address], [address] [place] [address] HEPATITIS A IGM Non-Reactive Normal NRCT [facility] Comment on above: Performed By: #### C BCA, CMP, 1987-12, FEPR, 2275-4, 2284-8, 75861-9, 2132-9, 86065-7, 24062-9, 5130-0, 95439-0, 79276-8, 59218-9, 3357-1, 8092-9, 48956-5, 53343-4, 58830-4, 80876-9, 50992-6 #### [facility] ([id number]) [address], [address] [place] [address] HEPATITIS B CORE IGM Negative Normal NEG [facility] Comment on above: Performed By: #### C BCA, CMP, 1987-12, FEPR, 2276-4, 2284-8, 81332-5, 2132-9, 25117-3, 80729-4, 5130-0, 00710-5, 52851-2, 72977-1, 3357-1, 8092-9, 41088-5, 83532-6, 79210-0, 59445-2, 36033-7 #### [facility] ([id number]) [address] [place] [address], [address] [address] HEPATITIS B SURF AG Negative Normal NEG [facility] Comment on above: Performed By: #### C SHARATH, CMP, 1987-12, FEPR, 2276-4, 2284-8, 27282-6, 213-9, 07248-6, 66003-2, 5130-0, 48781-5, 56857-4, 12104-4, 3357-1, 8092-9, 36107-3, 51210-3, 15016-4, 28364-0, 18081-5 #### [facility] ([id number]) [address] [place] [address], [place] [id number] SILVIA Screen w/ Reflexon 09-23 Nuclear Ab IA Ql (S) Positive Abnormal Negativ e^Ne [facility] Comment on above: Testing performed using multiplex flow immunoassay. Eleven different antigens associated with systemic autoimmune diseases (dsDNA,Sm,Sm/STRIP CATCHER,STRIP CATCHER,Chromatin, SSA,SSB,Tiki-1,Scl70,Ribo P,Centromere B) are included in this screening test. ANTI CARDIOLIPIN AB IGG IGA IGMon 09-23-2023 MIRIAM IgA <2.0 Normal 0-19.9 [facility] Comment on above: Performed By: #### C BCA, CMP, 1987-12, FEPR, 2276-4, 2284-8, 05165-7, 2132-9, 13884-2, 91606-7, 5130-0, 42711-2, 30784-9, 56477-5, 3357-1, 8092-9, 45656-0, 66852-7, 78577-3, 24466-6, 29352-0 #### [facility] ([id number]) [address] [place] [address], [address] [address] MIRIAM IgG <1.6 Normal 0-19.9 [facility] Comment on above: Performed By: #### C BCA, CMP, 1987-12, FEPR, 2276-4, 2284-8, 05485-1, 2132-9, 01236-2, 46165-9, 5130-0, 02294-7, 82939-7, 48756-2, 3357-1, 8092-9, 62620-0, 18451-5, 06066-2, 89957-5, 05940-8 #### [facility] ([id number]) [address], [address] [place] [address] MIRIAM IgM <1.5 Normal 0-19.9 [facility] Comment on above: Performed By: #### C BCA, CMP, 1987-12, FEPR, 227-4, 2284-8, 93483-1, 2132-9, 56581-4, 30045-9, 5130-0, 98532-7, 50580-9, 23064-6, 3357-1, 8092-9, 84603-7, 46858-4, 68867-6, 93385-9, 30940-1 #### [facility] ([id number]) [address], [address] [place] [address] Anileridine Ql (U)on 024 JO1 ANTIBODY <0.2 Normal <1.0 [facility] Comment on above: Performed By: #### C BCA, CMP, 1987-12, FEPR, 227-4, 2284-8, 91153-5, 2132-9, 29953-4, 44609-2, 5130-0, 80229-6, 74207-1, 58669-2, 3357-1, 8092-9, 50727-4, 89703-5, 64880-7, 34653-6, 72653-1 #### [facility] ([id number]) [address], [address] [place] [address] Anti cardiolipin AB IgG IgA IgMon 09-23-2023 Cardiolipin IgA IA Qn (S) [facility] Cardiolipin IgG IA Qn (S) [facility] Cardiolipin IgM IA Qn (S) [facility] Anti-Chromatin IGGon 024 Chromatin Ab Ql 0.4 [facility] Comment on above: CLIA ID [id number] Anti-DNA antibody, double-st randedon 09-23-2023 DNA double strand Ab Qn (S) 1 [IU]/mL [facility] Comment on above: Interpretation-------- <5 Negative 5-9 Indeterminate >9 Positive CLIA ID [id number] Anti-Ribosomal P AB IGGon Ribosomal P IgG Qn (S) [facility] Comment on above: CLIA ID [id number] Anti-Mejia AB IGGon 09-23-19 24 Mejia extractable nuclear IgG Qn (S) [facility] Comment on above: CLIA ID [id number] BETA-2 GP1 AB PANELon 2023 BETA-2 GP1 IgA <2.0 Normal 0.0-19.9 [facility] Comment on above: Performed By: #### C BCA, CMP, 1988-5, FEPR, 2276-4, 2284-8, 40729-1, 2132-9, 97870-8, 96105-0, 5130-0, 75968-0, 45546-4, 39491-7, 3357-1, 8092-9, 74155-9, 06899-2, 40198-0, 20653-0, 50311-5 #### [facility] ([id number]) [address], [address] [place] [address] BETA-2 GP1 IgG <1.4 Normal 0.0-19.9 [facility] Comment on above: Performed By: #### C BCA, CMP, 1987-, FEPR, 2276-4, 2284-8, 48089-7, 2132-9, 18611-4, 51600-1, 5130-0, 38469-4, 46677-4, 08494-7, 3357-1, 8092-9, 88878-9, 33392-2, 32958-7, 37331-2, 78479-5 #### [facility] ([id number]) [address], [address] [place] [address] BETA-2 GP1 IgM 4.1 u/mL Normal 0.0-19.9 [facility] Comment on above: Performed By: #### C BCA, CMP, 1987-12, FEPR, 2276-4, 2284-8, 34456-4, 2132-9, 06075-1, 40799-5, 5130-0, 23641-1, 16689-7, 33983-1, 3357-1, 8092-9, 29142-7, 00503-5, 57069-6, 93290-8, 18297-9 #### [facility] ([id number]) [address], [address] [place] [address] Beta-2 glycoprotein antibodi eson 09-23-2023 Beta 2 glycoprotein 1 IgA IA Qn u/mL 0.0 - 19.9 u/mL [facility] Beta 2 glycoprotein 1 IgG IA Qn u/mL 0.0 - 19.9 u/mL [facility] Beta 2 glycoprotein 1 IgM IA Qn 4.1 u/mL 0.0 - 19.9 u/mL [facility] C-reactive proteinon 024 CRP [Mass/Vol] 13.3 mg/dL High 0.000 - 0.744 mg/dL [facility] CBC AND AUTO DIFFon 09-23-19 24 ABSOLUTE BASOPHIL 0.0 X10E9/L Normal 0.0-0.2 [facility] Comment on above: Performed By: #### C BCA, CMP, 1987-12, FEPR, 2276-4, 2284-8, 61300-4, 2132-9, 35834-1, 93600-7, 5130-0, 58213-9, 71102-3, 54429-7, 3357-1, 8092-9, 10893-7, 90163-3, 86584-0, 40931-8, 39312-0 #### [facility] ([id number]) [address], [address] [place] [address] ABSOLUTE NEUTROPHIL 11.5 X10E9/L High 1.5-6.6 [facility] Comment on above: Performed By: #### C BCA, CMP, 1987-12, FEPR, 2275-4, 2284-8, 17655-7, 2132-9, 47411-3, 64676-0, 5130-0, 13182-6, 39917-7, 07296-4, 3357-1, 8092-9, 74056-9, 93621-6, 51328-5, 95693-9, 91464-5 #### [facility] ([id number]) [address], [address] [place] [address] Basophils/100 WBC (Bld) 0.2 % Normal [facility] Comment on above: Performed By: #### C BCA, CMP, 1987-12, FEPR, 2275-4, 2284-8, 47490-5, 2132-9, 08411-0, 50560-5, 5130-0, 50130-4, 80561-4, 76534-3, 3357-1, 8092-9, 98863-1, 86291-0, 89307-3, 83626-4, 72044-4 #### [facility] ([id number]) [address], [address] [place] [address] Eosinophils (Bld) [#/Vol] 0.0 10*3/uL Normal 0.0-0.4 [facility] Comment on above: Performed By: #### C BCA, CMP, 1987-12, FEPR, 2276-4, 2284-8, 88171-4, 2132-9, 01222-1, 62373-0, 5130-0, 08343-0, 26835-4, 78798-6, 3357-1, 8092-9, 47708-6, 48706-1, 33781-3, 31728-4, 68073-2 #### [facility] ([id number]) [address], [address] [place] [address] Eosinophils/100 WBC (Bld) 0.0 % Normal [facility] Comment on above: Performed By: #### C BCA, CMP, 1987-12, FEPR, 2275-4, 2284-8, 63578-3, 2132-9, 60638-4, 63900-7, 5130-0, 43774-3, 27216-1, 33414-2, 3357-1, 8092-9, 38731-6, 30272-1, 76403-4, 47186-6, 22596-5 #### [facility] ([id number]) [address], [address] [place] [address] Erythrocyte distribution width (RBC) [Ratio] 14.4 % Normal 11.5-15.0 [facility] Comment on above: Performed By: #### C BCA, CMP, 1987-12, FEPR, 2276-4, 2284-8, 93701-0, 2132-9, 88532-8, 16766-6, 5130-0, 71297-7, 37030-0, 96860-5, 3357-1, 8092-9, 66656-6, 53101-7, 18154-2, 26898-6, 85156-2 #### [facility] ([id number]) [address], [address] [place] [address] Hematocrit (Bld) [Volume fraction] 27.8 % Low 35-47 [facility] Comment on above: Performed By: #### C KELVIN EARLY, 1987-12, FEPR, 227-4, 2284-8, 49167-1, 2132-9, 07338-2, 08526-2, 5130-0, 38806-2, 42995-5, 57447-8, 3357-1, 8092-9, 98259-0, 82643-1, 42491-4, 43622-6, 87219-0 #### [facility] ([id number]) [address], [facility] [address] [place] [address] Hemoglobin (Bld) [Mass/Vol] 9.1 g/dL Low 11.7-15.5 [facility] Comment on above: Performed By: #### C KELVIN EARLY, 1987-12, FEPR, 2275-, 2283-8, 61146-7, 2132-9, 56540-7, 09042-8, 5130-0, 49719-4, 54846-2, 96204-7, 3357-1, 8092-9, 34760-2, 51703-5, 15327-0, 02094-8, 52706-3 #### [facility] ([id number]) [address], [facility] [address] [place] [address] Lymphocytes (Bld) [#/Vol] 0.4 10*3/uL Low 1.0-3.5 [facility] Comment on above: Performed By: #### C SHARATH, KELVIN, 1987-12, FEPR, 2275-4, 2284-8, 93690-3, 2132-9, 02253-0, 05571-9, 5130-0, 38029-2, 26750-5, 09132-2, 3357-1, 8092-9, 29760-6, 81890-7, 33353-3, 61150-9, 02271-1 #### [facility] ([id number]) [address], [address] [place] [address] Lymphocytes/100 WBC (Bld) 3.3 % Normal [facility] Comment on above: Performed By: #### C BCA, CMP, 1987-12, FEPR, 2276-4, 2284-8, 87890-8, 2132-9, 08524-7, 61955-5, 5130-0, 62489-2, 36994-4, 27333-2, 3357-1, 8092-9, 45630-5, 70559-8, 40351-0, 27207-8, 85993-9 #### [facility] ([id number]) [address], [address] [place] [address] MCH (RBC) [Entitic mass] 27.8 pg Normal 27-34 [facility] Comment on above: Performed By: #### C SHARATH, CMP, 1987-12, FEPR, 2276-4, 2284-8, 89253-5, 2132-9, 48728-0, 41422-1, 5130-0, 31413-2, 09873-6, 73347-8, 3357-1, 8092-9, 34634-1, 22185-3, 83373-7, 21271-2, 22160-5 #### [facility] ([id number]) [address], [address] [place] [address] MCHC (RBC) [Mass/Vol] 32.7 g/dL Normal 32-36 [facility] Comment on above: Performed By: #### C BCA, CMP, 1987-12, FEPR, 2276-4, 2284-8, 55118-4, 2132-9, 06727-7, 79304-5, 5130-0, 08613-0, 51780-8, 40070-9, 3357-1, 8092-9, 94891-8, 99965-5, 30232-0, 04054-4, 86048-1 #### [facility] ([id number]) [address], [address] [place] [address] MCV (RBC) [Entitic vol] 85 fL Normal 80-[address] [facility] Comment on above: Performed By: #### C BCA, CMP, 1987-12, FEPR, 2276-4, 2284-8, 73590-2, 2132-9, 27012-5, 54108-0, 5130-0, 07800-9, 59297-6, 58958-3, 3357-1, 8092-9, 86892-7, 06105-3, 31939-6, 35438-8, 14755-5 #### [facility] ([id number]) [address], [address] [place] [address] Monocytes (Bld) [#/Vol] 0.1 10*3/uL Normal 0-0.9 [facility] Comment on above: Performed By: #### C BCA, CMP, 1987-12, FEPR, 2275-4, 2284-8, 21454-9, 2132-9, 64494-8, 67556-6, 5130-0, 91388-1, 82756-1, 01012-6, 3357-1, 8092-9, 62474-3, 05343-1, 80143-5, 42550-2, 43437-4 #### [facility] ([id number]) [address], [address] [place] [address] Monocytes/100 WBC (Bld) 1.0 % Normal [facility] Comment on above: Performed By: #### C BCA, CMP, 1987-12, FEPR, 2276-4, 2284-8, 51277-5, 2132-9, 70426-3, 49666-5, 5130-0, 30792-8, 01180-2, 78125-6, 3357-1, 8092-9, 94116-7, 75652-8, 25397-6, 10026-4, 60596-5 #### [facility] ([id number]) [address], [address] [place] [address] Neutrophils/100 WBC (Bld) 95.5 % Normal [facility] Comment on above: Performed By: #### C BCA, CMP, 1987-12, FEPR, 2276-4, 2284-8, 71752-1, 2132-9, 75200-6, 34482-5, 5130-0, 70083-8, 45549-1, 31366-8, 3357-1, 8092-9, 09874-8, 17091-5, 13006-9, 25984-7, 09774-5 #### [facility] ([id number]) [address], [address] [place] [address] Platelet mean volume (Bld) [Entitic vol] 6.2 fL Low 7-12 [facility] Comment on above: Performed By: #### C BCA, CMP, 1987-12, FEPR, 227-4, 2284-8, 28870-3, 2132-9, 11354-6, 30847-3, 5130-0, 97409-8, 11027-2, 84441-0, 3357-1, 8092-9, 27848-5, 09875-3, 24412-4, 35755-9, 62885-4 #### [facility] ([id number]) [address], [address] [place] [address] Platelets (Bld) [#/Vol] 924 10*3/uL High 150-450 [facility] Comment on above: Performed By: #### C BCA, CMP, 1987-12, FEPR, 2276-4, 2284-8, 48887-6, 2132-9, 51009-4, 76922-3, 5130-0, 45508-1, 44254-7, 57532-9, 3357-1, 8092-9, 44278-3, 62934-7, 44042-2, 73036-2, 06881-1 #### [facility] ([id number]) [address], [address] [place] [address] RBC COUNT 3.27 X10E12/L Low 3.80-5.20 [facility] Comment on above: Performed By: #### C BCA, CMP, 1987-12, FEPR, 2275-4, 2283-8, 51258-8, 2132-9, 24731-5, 70438-8, 5130-0, 40920-6, 38851-8, 23935-5, 3357-1, 8092-9, 66329-2, 56092-7, 78140-2, 36679-2, 62912-1 #### [facility] ([id number]) [address], [address] [place] [address] WBC (Bld) [#/Vol] 12.1 10*3/uL High 4.0-11.0 [facility] Comment on above: Performed By: #### C BCA, CMP, 1987-12, FEPR, 2275-, 2283-8, 29543-7, 2131-9, 95884-1, 37582-2, 5130-0, 60798-2, 28135-8, 16128-0, 3357-1, 8092-9, 46219-3, 54528-9, 55061-7, 08545-7, 00201-3 #### [facility] ([id number]) [address], [address] [place] [address] ABSOLUTE BASOPHIL 0.2 X10E9/L Normal 0.0-0.2 [facility] [place] Comment on above: Performed By: #### C BCA, CMP, 1987-12, FEPR, 2275-4, 2284-8, 36559-9, 2132-9, 60230-5, 40033-7, 5130-0, 93454-4, 02285-9, 23861-4, 3357-1, 8092-9, 28641-3, 23110-6, 68285-5, 75394-8, 96103-9 #### [facility] ([id number]) [address], [address] [place] [address] ABSOLUTE NEUTROPHIL 10.4 X10E9/L High 1.5-6.[address] [facility] Comment on above: Performed By: #### C BCA, CMP, 1987-12, FEPR, 6-4, 2284-8, 67632-1, 2132-9, 59213-3, 74856-7, 5130-0, 06398-3, 77634-3, 08234-6, 3357-1, 8092-9, 34279-5, 76632-8, 49413-8, 79715-8, 05260-2 #### [facility] ([id number]) [address], [address] [place] [address] Basophils/100 WBC (Bld) 2.1 % Normal [facility] Comment on above: Performed By: #### C BCA, CMP, 1987-12, FEPR, 2275-4, 2283-8, 79147-7, 2132-9, 53887-8, 21875-1, 5130-0, 46879-3, 90736-8, 97889-9, 3357-1, 8092-9, 10926-3, 11696-2, 24006-1, 47654-4, 39726-1 #### [facility] ([id number]) [address], [address] [place] [address] Eosinophils (Bld) [#/Vol] 0.0 10*3/uL Normal 0.0-0.4 [facility] Comment on above: Performed By: #### C BCA, CMP, 1987-12, FEPR, 2276-4, 2284-8, 77746-6, 2132-9, 80508-9, 44531-5, 5130-0, 32623-4, 10148-7, 98250-6, 3357-1, 8092-9, 41322-5, 43096-3, 78800-9, 24360-8, 22548-1 #### [facility] ([id number]) [address], [address] [place] [address] Eosinophils/100 WBC (Bld) 0.0 % Normal [facility] Comment on above: Performed By: #### C SHARATH, CMP, 1987-12, FEPR, 2275-4, 2284-8, 77782-4, 2132-9, 49248-8, 78505-1, 5130-0, 73411-5, 30150-3, 44743-3, 3357-1, 8092-9, 33173-6, 70603-8, 81246-9, 20342-1, 25227-8 #### [facility] ([id number]) [facility] [facility] [address], [address] [place] [address] Erythrocyte distribution width (RBC) [Ratio] 14.6 % Normal 11.5-15.0 [facility] Comment on above: Performed By: #### C SHARATH, CMP, 1987-12, FEPR, 2275-4, 2284-8, 15265-7, 2132-9, 83732-2, 19563-0, 5130-0, 61691-2, 32217-6, 35711-2, 3357-1, 8092-9, 58120-4, 47774-8, 46238-5, 10339-2, 94805-9 #### [facility] ([id number]) [address] [facility], [address] [place] [address] Hematocrit (Bld) [Volume fraction] 26.2 % Low 35-47 [facility] Comment on above: Performed By: #### C BCA, CMP, 1987-12, FEPR, 2275-4, 2284-8, 67688-0, 2132-9, 16542-8, 88834-1, 5130-0, 30025-0, 65528-5, 14812-8, 3357-1, 8092-9, 36026-0, 20069-4, 43710-5, 67547-9, 04166-5 #### [facility] ([id number]) [address] [place] [address], [address] [place] [address] Hemoglobin (Bld) [Mass/Vol] 8.6 g/dL Low 11.7-15.5 [facility] Comment on above: Performed By: #### C SHARATH, CMP, 1987-12, FEPR, 2275-4, 2284-8, 62572-3, 2132-9, 18330-0, 39422-1, 5130-0, 27621-1, 33975-7, 38981-7, 3357-1, 8092-9, 53351-6, 50119-3, 55615-4, 16552-2, 83656-1 #### [facility] ([id number]) [address] [place] [address], [address] [place] [address] Lymphocytes (Bld) [#/Vol] 0.4 10*3/uL Low 1.0-3.5 [facility] Comment on above: Performed By: #### C SHARATH, CMP, 1987-12, FEPR, 2275-4, 2283-8, 20519-6, 2131-9, 25307-0, 29641-9, 5130-0, 70911-8, 61958-5, 84112-9, 3357-1, 8092-9, 50898-3, 95977-1, 31986-8, 64711-3, 61611-6 #### [facility] ([id number]) [address] [place] [address], [address] [place] [address] Lymphocytes/100 WBC (Bld) 3.6 % Normal [facility] Comment on above: Performed By: #### C SHARATH, CMP, 1987-12, FEPR, 2276-4, 2284-8, 33979-4, 2132-9, 46754-2, 47836-9, 5130-0, 50073-5, 29705-1, 00467-5, 3357-1, 8092-9, 80548-4, 33288-2, 51851-9, 14864-2, 00132-3 #### [facility] ([id number]) [address], [address] [place] [address] MCH (RBC) [Entitic mass] 28.1 pg Normal 27-34 [facility] Comment on above: Performed By: #### C SHARATH, CMP, 1987-12, FEPR, 6-4, 2284-8, 13756-7, 2132-9, 92496-7, 54807-3, 5130-0, 68226-1, 78883-5, 09019-7, 3357-1, 8092-9, 01994-8, 17534-0, 59459-1, 87029-4, 51875-5 #### [facility] ([id number]) [address], [address] [place] [address] MCHC (RBC) [Mass/Vol] 32.9 g/dL Normal 32-36 [facility] Comment on above: Performed By: #### C SHARATH, CMP, 1987-12, FEPR, 6-4, 2284-8, 31102-0, 2132-9, 14214-7, 93634-0, 5130-0, 54461-9, 44249-5, 97266-1, 3357-1, 8092-9, 20013-2, 11058-1, 59867-0, 03762-3, 23817-4 #### [facility] ([id number]) [address], [address] [place] [address] MCV (RBC) [Entitic vol] 85 fL Normal 80-100 [facility] Comment on above: Performed By: #### C BCA, CMP, 1987-12, FEPR, 2276-4, 2284-8, 14831-9, 2132-9, 56101-3, 43580-4, 5130-0, 62902-4, 09262-1, 64430-8, 3357-1, 8092-9, 58706-2, 65440-2, 30627-7, 68243-9, 28160-8 #### [facility] ([id number]) [address], [address] [place] [address] Monocytes (Bld) [#/Vol] 0.1 10*3/uL Normal 0-0.9 [facility] Comment on above: Performed By: #### C SHARATH, [facility], 1987-12, FEPR, 6-4, 2284-8, 22234-2, 2132-9, 57134-8, 94720-0, 5130-0, 07749-5, 68867-7, 01551-8, 3357-1, 8092-9, 67796-1, 14881-1, 13962-0, 25710-2, 04224-7 #### [facility] ([id number]) [address] [facility] [address], [address] [place] [address] Monocytes/100 WBC (Bld) 1.0 % Normal [facility] Comment on above: Performed By: #### C SHARATH, KELVNI, 1987-12, FEPR, 6-4, 2284-8, 24431-8, 2132-9, 45432-8, 71199-5, 5130-0, 94836-4, 96934-6, 35276-2, 3357-1, 8092-9, 86051-0, 14243-4, 26118-9, 96415-3, 41988-5 #### [facility] ([id number]) [address], [address] [place] [address] Neutrophils/100 WBC (Bld) 93.3 % Normal [facility] Comment on above: Performed By: #### C SHARATH, CMP, 1987-12, FEPR, 2276-4, 2284-8, 64536-2, 2132-9, 61614-2, 46534-6, 5130-0, 20778-3, 89481-4, 84305-1, 3357-1, 8092-9, 19977-6, 58084-2, 34066-3, 30522-6, 61322-8 #### [facility] ([id number]) [address] [facility], [address] [place] [address] Platelet mean volume (Bld) [Entitic vol] 6.3 fL Low 7-12 [facility] Comment on above: Performed By: #### C BCA, CMP, 1987-12, FEPR, 2276-4, 2284-8, 67168-8, 2132-9, 44517-9, 51411-9, 5130-0, 70692-0, 56417-0, 25779-2, 3357-1, 8092-9, 35649-0, 63878-0, 53880-2, 80326-0, 21259-4 #### [facility] ([id number]) [facility] [facility], [address] [place] [address] Platelets (Bld) [#/Vol] 917 10*3/uL High 150-450 [facility] Comment on above: Performed By: #### C BCA, CMP, 1987-12, FEPR, 2276-4, 2284-8, 76139-9, 2132-9, 32719-4, 91151-9, 5130-0, 64681-6, 09344-7, 02530-8, 3357-1, 8092-9, 51890-6, 56637-1, 13063-5, 63352-0, 94371-8 #### [facility] ([id number]) [address] [facility] [address], [address] [place] [address] RBC COUNT 3.07 X10E12/L Low 3.80-5.20 [facility] Comment on above: Performed By: #### C BCA, CMP, 1987-, FEPR, 2276-4, 2284-8, 18122-9, 2132-9, 45792-0, 90374-8, 5130-0, 36751-2, 56485-0, 34726-2, 3357-1, 8092-9, 26248-4, 58864-4, 79744-4, 17557-3, 72302-6 #### [facility] ([id number]) [address] [facility], [address] [place] [address] WBC (Bld) [#/Vol] 11.1 10*3/uL High 4.0-11.0 [facility] Comment on above: Performed By: #### C SHARATH, [facility], 1987-12, FEPR, 2276-4, 2284-8, 53569-1, 2132-9, 96207-0, 63471-8, 5130-0, 49277-1, 42645-9, 82640-7, 3357-1, 8092-9, 62844-6, 11364-6, 13342-7, 11856-6, 25247-8 #### [facility] ([id number]) [address] [facility], [address] [place] [address] CBC auto differentialon 08-27 Basophils (Bld) [#/Vol] 0.0 10*3/uL [facility] Basophils/100 WBC (Bld) 0.2 % [facility] Eosinophils (Bld) [#/Vol] 0.0 10*3/uL [facility] Eosinophils/100 WBC (Bld) 0.0 % [facility] Erythrocyte distribution width (RBC) [Ratio] 14.4 % 11.5 - 15.0 % [facility] Hematocrit (Bld) [Volume fraction] 27.8 % Low 35 - 47 % [facility] Hemoglobin (Bld) [Mass/Vol] 9.1 g/dL [...] System Monocytes/100 WBC (Bld) 1.0 % [facility] Neutrophils (Bld) [#/Vol] 11.5 10*3/uL High [facility] Neutrophils/100 WBC (Bld) 95.5 % [facility] Platelet mean volume (Bld) [Entitic vol] 6.2 fL Low 7 - 12 fL [facility] Platelets (Bld) [#/Vol] 924 10*3/uL High [facility] RBC (Bld) [#/Vol] 3.27 10*6/uL Low [facility] WBC corrected for nucl RBC Auto (Bld) [#/Vol] 12.1 High [facility] Basophils (Bld) [#/Vol] 0.2 10*3/uL [facility] Basophils/100 WBC (Bld) 2.1 % [facility] Eosinophils (Bld) [#/Vol] 0.0 10*3/uL [facility] Eosinophils/100 WBC (Bld) 0.0 % [facility] Erythrocyte distribution width (RBC) [Ratio] 14.6 % 11.5 - 15.0 % [facility] Hematocrit (Bld) [Volume fraction] 26.2 % Low 35 - 47 % [facility] Hemoglobin (Bld) [Mass/Vol] 8.6 g/dL Low 11.7 - 15.5 g/dL [facility] Interpretation and review of laboratory results Abnormal [facility] Lymphocytes (Bld) [#/Vol] 0.4 10*3/uL Low [facility] Lymphocytes/100 WBC (Bld) 3.6 % [facility] MCH (RBC) [Entitic mass] 28.1 pg 27 - 34 pg [facility] MCHC (RBC) [Mass/Vol] 32.9 g/dL 32 - 3 6 g/dL [facility] MCV (RBC) [Entitic vol] 85 fL 80 - 100 fL [facility] Monocytes (Bld) [#/Vol] 0.1 10*3/uL [facility] Monocytes/100 WBC (Bld) 1.0 % P [facility] Neutrophils (Bld) [#/Vol] 10.4 10*3/uL High [facility] Neutrophils/100 WBC (Bld) 93.3 % [facility] Platelet mean volume (Bld) [Entitic vol] 6.3 fL Low 7 - 12 fL [facility] Platelets (Bld) [#/Vol] 917 10*3/uL High [facility] RBC (Bld) [#/Vol] 3.07 10*6/uL Low [facility] WBC corrected for nucl RBC Auto (Bld) [#/Vol] 11.1 High [facility] COMPREHENSIVE METABOLIC PANE Cole 09-23-2023 Albumin [Mass/Vol] 3.0 g/dL Low 3.2-5.3 [facility] [place] Comment on above: Performed By: #### C BCA, CMP, 1987-12, FEPR, 2276-4, 2284-8, 67078-0, 2132-9, 13494-1, 92945-2, 5130-0, 56347-7, 64349-7, 18977-0, 3357-1, 8092-9, 75742-1, 17107-8, 14223-7, 18269-8, 78997-7 #### [facility] ([id number]) [address], [address] [place] [address] ALP [Catalytic activity/Vol] 227 U/L High 39-130 [facility] Comment on above: Performed By: #### C BCA, CMP, 1987-12, FEPR, 2276-4, 2284-8, 17603-3, 2132-9, 11666-1, 52789-3, 5130-0, 07387-4, 30930-8, 65842-7, 3357-1, 8092-9, 50758-3, 81651-5, 32555-1, 85957-4, 32032-1 #### [facility] ([id number]) [address], [address] [place] [address] ALT [Catalytic activity/Vol] 11 U/L Normal 0-31 [facility] Comment on above: Performed By: #### C BCA, CMP, 1987-12, FEPR, 2276-4, 2284-8, 04367-1, 2132-9, 92308-0, 39465-7, 5130-0, 73268-5, 85935-2, 30024-6, 3357-1, 8092-9, 99513-8, 66996-0, 68808-8, 03192-5, 81990-6 #### [facility] ([id number]) [facility], [address] [place] [address] Anion gap [Moles/Vol] 13 mmol/L Normal 5-15 [facility] Comment on above: Performed By: #### C BCA, CMP, 1987-12, FEPR, 2276-4, 2284-8, 98383-7, 2132-9, 46033-4, 73330-4, 5130-0, 75284-5, 58314-9, 51172-7, 3357-1, 8092-9, 07200-8, 87767-1, 90417-9, 61712-3, 40969-4 #### [facility] ([id number]) [address], [address] [place] [address] AST [Catalytic activity/Vol] 12 U/L Normal 0-41 [facility] Comment on above: Performed By: #### C BCA, CMP, 1987-12, FEPR, 2276-4, 2284-8, 30062-2, 2132-9, 75486-2, 64762-6, 5130-0, 41328-0, 09880-6, 90105-6, 3357-1, 8092-9, 63177-8, 44441-3, 08165-4, 44710-7, 75921-2 #### [facility] ([id number]) [address], [address] [place] [address] Bilirubin [Mass/Vol] 0.6 mg/dL Normal 0.3-1.2 [facility] Comment on above: Performed By: #### C BCA, CMP, 1987-12, FEPR, 2276-4, 2284-8, 49267-7, 2132-9, 16337-6, 47694-1, 5130-0, 12311-1, 75473-6, 05015-2, 3357-1, 8092-9, 17359-6, 89377-1, 94062-2, 57132-6, 96855-4 #### [facility] ([id number]) [address], [address] [place] [address] Calcium [Mass/Vol] 8.6 mg/dL Normal 8.5-10.5 [facility] [place] Comment on above: Performed By: #### C BCA, CMP, 1987-12, FEPR, 2276-4, 2284-8, 21517-1, 2132-9, 30466-0, 90094-8, 5130-0, 97340-7, 57651-0, 60523-4, 3357-1, 8092-9, 13823-9, 95050-5, 92602-2, 20070-1, 80413-5 #### [facility] ([id number]) [address], [address] [place] [address] Chloride [Moles/Vol] 101 mmol/L Normal 98-109 [facility] Comment on above: Performed By: #### C BCA, CMP, 1987-12, FEPR, 2276-4, 2284-8, 16343-7, 2132-9, 06478-9, 79084-9, 5130-0, 00625-5, 26794-7, 03824-6, 3357-1, 8092-9, 99800-6, 67242-2, 46072-9, 97822-4, 71799-2 #### [facility] ([id number]) [address], [address] [place] [address] CO2 [Moles/Vol] 25 mmol/L Normal 22-32 [facility] Comment on above: Performed By: #### C BCA, CMP, 1987-12, FEPR, 2276-4, 2284-8, 18695-3, 2132-9, 73046-6, 18703-7, 5130-0, 04349-1, 70922-6, 21865-0, 3357-1, 8092-9, 05221-5, 80269-5, 82909-7, 10362-6, 54900-7 #### [facility] ([id number]) [address], [address] [place] [address] Creatinine [Mass/Vol] 0.49 mg/dL Normal 0.40-1.00 [facility] Comment on above: Result Comment: METH OD TRACEABLE TO IDMS STANDARD Performed By: #### C BCA, CMP, 1987-12, FEPR, 2276-4, 2284-8, 89634-4, 2132-9, 99039-4, 36432-2, 5130-0, 14226-2, 30915-0, 10440-5, 3357-1, 8092-9, 32266-5, 92232-1, 01845-4, 35836-3, 85179-4 #### [facility] ([id number]) [address], [address] [place] [address] eGFR (CKD-EPI) NON-RACE DEPENDENT >90 Normal >59 [facility] Comment on above: Result Comment: Reported eGFR is based on the CKD-EPI 2020 equation that does not use a race coefficient. Performed By: #### C SHARATH, CMP, 1987-12, FEPR, 2276-4, 2284-8, 84120-0, 2132-9, 01374-2, 03669-5, 5130-0, 11478-3, 46175-7, 10836-2, 3357-1, 8092-9, 32676-4, 17243-4, 40230-0, 86590-9, 64307-9 #### [facility] ([id number]) [address], [address] [place] [address] Glucose [Mass/Vol] 141 mg/dL High 65-99 [facility] Comment on above: Performed By: #### C SHARATH, CMP, 1987-12, FEPR, 2275-4, 228-8, 30858-6, 2132-9, 80346-4, 28296-0, 5130-0, 36648-2, 28950-1, 66254-3, 3357-1, 8092-9, 57176-8, 27551-4, 94780-9, 93400-0, 82396-2 #### [facility] ([id number]) [address], [address] [place] [address] Potassium [Moles/Vol] 3.7 mmol/L Normal 3.5-5.0 [facility] Comment on above: Performed By: #### C BCA, CMP, 1987-12, FEPR, 2276-4, 2284-8, 81850-5, 2132-9, 82967-4, 40894-1, 5130-0, 08456-2, 16645-4, 80646-9, 3357-1, 8092-9, 85603-6, 79420-1, 31222-8, 22992-6, 75855-7 #### [facility] ([id number]) [address], [address] [place] [address] Protein [Mass/Vol] 6.9 g/dL Normal 6.0-8.0 [facility] Comment on above: Performed By: #### C BCA, CMP, 1987-12, FEPR, 2276-4, 2284-8, 41660-4, 2132-9, 77280-5, 78895-4, 5130-0, 34851-9, 74291-0, 39246-2, 3357-1, 8092-9, 80733-9, 55411-7, 10164-1, 16536-6, 34254-0 #### [facility] ([id number]) [address] [place] [address], [address] [place] [address] Sodium [Moles/Vol] 139 mmol/L Normal 134-146 [facility] Comment on above: Performed By: #### C BCA, CMP, 1987-12, FEPR, 227-4, 2284-8, 50283-4, 2132-9, 63431-4, 58956-0, 5130-0, 44948-1, 41665-1, 45608-2, 3357-1, 8092-9, 03550-7, 99522-1, 49182-4, 96491-4, 09123-7 #### [facility] ([id number]) [address] [place] [address], [address] [place] [address] Urea nitrogen [Mass/Vol] 14 mg/dL Normal 5-27 [facility] Comment on above: Performed By: #### C BCA, CMP, 1987-12, FEPR, 2276-4, 2284-8, 33627-3, 2132-9, 09205-2, 82313-2, 5130-0, 41184-8, 37590-6, 07648-9, 3357-1, 8092-9, 25565-4, 53129-9, 01783-1, 09751-9, 03470-0 #### [facility] ([id number]) [address] [place] [address], [address] [place] [address] CRP [Mass/Vol]on 09-23-2023 C REACTIVE PROTEIN 13.3 mg/dL High 0.000-0.744 [facility] Comment on above: Performed By: #### C SHARATH, KELVIN, 1987-12, FEPR, 2275-4, 2283-8, 52406-5, 2132-9, 08671-4, 67638-3, 5130-0, 73502-2, 36880-6, 78315-6, 3357-1, 8092-9, 97953-7, 51048-8, 95794-6, 84456-3, 02092-5 #### [facility] ([id number]) [address], [address] [place] [address] Centromere ABon 09-23-2023 Centromere protein B Ab Ql (S) High [facility] Comment on above: CLIA ID [id number] Centromere protein B Ab Ql ( S)on 09-23-2023 Interpretation and review of laboratory results Abnormal [facility] CENTROMERE ANTIBODY >8.0 High <1.0 [facility] Comment on above: Performed By: #### C SHARATH, KELVIN, 1987-12, FEPR, 2275-4, 2283-8, 86376-5, 2132-9, 63733-0, 23645-3, 5130-0, 20369-6, 00342-3, 42560-3, 3357-1, 8092-9, 96405-0, 37113-8, 90260-8, 19200-9, 26406-4 #### [facility] ([id number]) [address] [place] [address], [address] [place] [address] Chromatin Ab Qlon 09-23-2023 CHROMATIN AB IGG 0.4 AI Normal <1.0 [facility] Comment on above: Performed By: #### C SHARATH, KELVIN, 1987-12, FEPR, 2276-4, 2284-8, 12969-1, 2132-9, 46287-1, 17408-1, 5130-0, 86983-2, 63956-3, 48227-4, 3357-1, 8092-9, 39407-9, 13463-7, 94002-3, 95747-8, 63550-6 #### [facility] ([id number]) [address] [place] [address], [address] [place] [address] Clinical Pathologyon 024 Clinical Pathology Normal [facility] Comment on above: Result Comment: [facility] [address] [place] [address] Clinical Pathology Report Patient Name:JOSE DAVID:1945 (Age: 78)Gender:FTaken:4Reported:4Physician(s):Olga Pan M.D. ([phone])Copy To: Rec. #:[id number]: #[id number] Final Pathologic Diagnosis Hypoalbuminemia with increase in acute phase reactants. No monoclonal bands identified. Report Electronically Signed Out /4Dkevin Bains MD Interpretation performed at [facility] [place] [address], License number: [id number]. Clinical History E53.8, H53.8, R29.90. SERUM PROTEIN ELECTROPHORESIS SAMPLE NO: [id number] ELECTROPHORETIC FRACTION CONCENTRATIONS (g/dL) PATIENT REFERENCE RANGE [...] IgA : 180 IgM : 285 Free Marvell: 2.91 Free Lambda: 2.38 Free Marvell/Lambda ratio: 1.22 Specimen(s) Received 1: Serum Protein Electrophoresis 2: Serum IEP Fee Codes(s): 1; 73985-56 2; 74003-92 Clinical Pathology Blood Sme ar Reviewon 09-23-2023 Clinical Pathology Blood Smear Review Normal [facility] Comment on above: Result Comment: [facility] [address] [place] [address] Clinical Pathology Report Patient Name:JOSE DAVID:1945 (Age: 78)Gender:FTaken:09/23/2023eported:09/26/2023hysician(s):Olga Pan M.D. ([phone])Copy To: Rec. #:[id number]: #[id number] Final Pathologic Diagnosis Peripheral blood smear: Neutrophilic [...] Out hna/09/26/2023Og Martinez M.D. Interpretation performed at [facility] [place] [address], License number: [id number]. Clinical History R29.9. BLOOD SMEAR EVALUATION CBC (09/23/2023 0818): WBC = 12.1 X10E9/L; HGB = 9.1 g/dL; HCT = 27.8%; MCV = 85 fL; PLT = 924 X10E9/L OTHER LAB DATA: Noncontributory. BLOOD SMEAR: Leukocytes: Neutrophilic leukocytosis with cytotoxic changes and lymphocytopenia. Erythrocytes: Moderate normocytic normochromic anemia. Platelets: Thrombocytosis. Specimen(s) Received Blood Smear Review Fee Codes(s): 1; 24359 Cobalamin (Vitamin B12) [Mas s/Vol]on 09-23-2023 [facility] Comprehensive metabolic pane cole 09-23-2023 Albumin [Mass/Vol] 3.0 g/dL Low 3.2 - 5.3 g/dL [facility] ALP [Catalytic activity/Vol] 227 U/L High 39 - 130 U/L [facility] ALT No additional P-5'-P [Catalytic activity/Vol] 11 U/L 0 - 31 U/L [facility] Anion gap [Moles/Vol] 13 mmol/L 5 - 15 mmol/L [facility] AST [Catalytic activity/Vol] 12 U/L 0 - 41 U/L [facility] Bilirubin [Mass/Vol] 0.6 mg/dL 0.3 - 1 .2 mg/dL [facility] Calcium [Mass/Vol] 8.6 mg/dL 8.5 - 10. 5 mg/dL [facility] Chloride [Moles/Vol] 101 mmol/L 98 - 10 9 mmol/L [facility] CO2 [Moles/Vol] 25 mmol/L 22 - 32 mmol/L [facility] Creatinine [Mass/Vol] 0.49 mg/dL 0.40 - 1.00 mg/dL [facility] Comment on above: METHOD TRACEABLE TO IDCT STANDARD eGFR (CKD-EPI)non-race dependent - PINF [facility] Comment on above: Reported eGFR is based on the CKD-EPI 2020 equation that does not use a race coefficient. Glucose [Mass/Vol] 141 mg/dL High 65 - 99 mg/dL [facility] Potassium [Moles/Vol] 3.7 mmol/L 3.5 - 5.0 mmol/L [facility] Protein [Mass/Vol] 6.9 g/dL 6.0 - 8.0 g/dL [facility] Sodium [Moles/Vol] 139 mmol/L 134 - 146 mmol/L [facility] Urea nitrogen [Mass/Vol] 14 mg/dL 5 - 27 mg/dL [facility] DNA double strand Ab Qn (S)o n 09-23-2023 DOUBLE STRANDED DNA 1 IU/ML Normal <5 [facility] Comment on above: Result Comment: Interpretation-------- <5 Negative 5-9 Indeterminate >9 Positive Performed By: #### C BCA, CMP, 1987-12, FEPR, 2276-4, 2284-8, 09413-4, 2132-9, 50126-9, 89188-8, 5130-0, 11655-1, 89039-3, 61670-3, 3357-1, 8092-9, 46961-3, 22469-9, 02639-0, 89061-8, 01877-3 #### [facility] ([id number]) [address] [place] [address], [address] [place] [address] Direct Coombson 09-23-2023 Polyspecific HENRRY Negative [facility] ESR Photometric method (Bld) [Velocity]on 09-23-2023 Interpretation and review of laboratory results Abnormal [facility] ESR, ERYTHROCYTE SEDIMENTATION RATE 114 mm/h High 0-30 [facility] Comment on above: Performed By: #### C BCA, CMP, 1987-12, FEPR, 2276-4, 2284-8, 21004-9, 2132-9, 52240-3, 80282-2, 5130-0, 26512-9, 90859-9, 56601-4, 3357-1, 8092-9, 22987-1, 41997-1, 64909-4, 95063-2, 25891-2 #### [facility] ([id number]) [address] [place] [address], [address] [place] [address] Erythrocyte Sedimentation Ra te (ESR)on 01-30-2024 ESR Photometric method (Bld) [Velocity] 114 mm/h High 0 - 30 mm/h [facility] FERRITINon 09-23-2023 Ferritin [Mass/Vol] 478 ng/mL High 11-307 [facility] Comment on above: Performed By: #### C BCA, CMP, 1987-, FEPR, 2276-4, 2284-8, 12202-5, 2132-9, 00078-4, 71125-1, 5130-0, 97023-6, 82665-0, 64756-0, 3357-1, 8092-9, 41088-2, 47228-2, 40763-3, 30426-3, 27762-8 #### [facility] ([id number]) [address], [address] [place] [address] FLOW CYTOMETRYon 09-23-2023 FLOW CYTOMETRY SEE SEPARATE REPORT, REVIEWED BY PATHOLOGIST Normal [facility] Comment on above: Performed By: #### C BCA, CMP, 1987-12, FEPR, 2276-4, 2284-8, 82441-9, 2132-9, 56164-9, 20174-7, 5130-0, 02705-3, 44783-7, 26498-3, 3357-1, 8092-9, 58227-9, 32387-8, 13867-5, 53519-1, 49575-8 #### [facility] ([id number]) [address], [address] [place] [address] Ferritinon 09-23-2023 Ferritin [Mass/Vol] 478 ng/mL High 11 - 307 ng/mL [facility] Ferritin [Mass/Vol]on 2023 Interpretation and review of laboratory results Abnormal [facility] Folateon 09-23-2023 Folate [Mass/Vol] 13.0 ng/mL 5.8 - PINF ng/mL [facility] Comment on above: NEW REFERENCE RANGE Folate [Mass/Vol]on 09-23-19 [facility] FOLIC ACID 13.0 ng/mL Normal >5.8 [facility] Comment on above: Result Comment: NEW REFERENCE RANGE Performed By: #### C SHARATH, KELVIN, 1987-, FEPR, 2276-4, 2284-8, 12342-3, 2132-9, 04975-3, 97833-3, 5130-0, 51283-3, 61161-0, 75131-8, 3357-1, 8092-9, 43811-8, 50867-8, 00525-8, 03475-2, 91315-4 #### [facility] ([id number]) [address], [address] [place] [address] Haptoglobinon 09-23-2023 Haptoglobin Nephelometry [Mass/Vol] 613 mg/dL High 32 - 228 mg/dL [facility] Haptoglobin Nephelometry [Ma ss/Vol]on 09-23-2023 Interpretation and review of laboratory results Abnormal [facility] HAPTOGLOBIN 613 mg/dL High 32-228 [facility] Comment on above: Performed By: #### C SHARATH, CMP, 1987-, FEPR, 2276-4, 2284-8, 93007-9, 2132-9, 50345-9, 50844-2, 5130-0, 55586-3, 64771-3, 43687-7, 3357-1, 8092-9, 51627-0, 94139-9, 99509-9, 18673-7, 94826-5 #### [facility] ([id number]) [address], [address] [place] [address] Hepatitis panel, acuteon HAV IgM IA Ql Non-Reactive Non-Reactiv e^Non-React harshil [facility] HBV core IgM IA Ql Negative Negative^ Ne [facility] HBV surface Ag IA Ql Negative Negativ e^Ne [facility] HCV Ab IA Ql Non-Reactive Non-Reactiv e^Non-React harshil [facility] Comment on above: If recent infection suspected, recommend repeat testing (>2 months). Nusllb-ss-nibzap ratio is <0.80. [facility] Homocysteine [Moles/Vol]on 0 09-23-2023 HOMOCYSTEINE 9.29 mcmol/L Normal 3.36-20.44 [facility] Comment on above: Performed By: #### C SHARATH, KELVIN, 1987-12, FEPR, 6-4, 2284-8, 14532-5, 2132-9, 70583-8, 78125-3, 5130-0, 99422-1, 81587-3, 82952-0, 3357-1, 8092-9, 58282-6, 33601-6, 94824-4, 05768-5, 49619-9 #### [facility] ([id number]) [address], [address] [place] [address] [facility] Homocysteine totalon 024 Homocysteine [Moles/Vol] 9.29 umol/L [facility] IMMUNOELECTROPHORESIS FOR TH ERAPY MONITORINGon 09-23-2023 FREE KECIA/LAMBD RATIO 1.22 Normal 0.26-1.65 [facility] Comment on above: Performed By: #### C SHARATH, KELVIN, 1987-12, FEPR, 2275-4, 4-8, 13985-2, 2132-9, 38863-3, 75176-7, 5130-0, 94024-7, 74873-9, 81422-2, 3357-1, 8092-9, 40048-4, 96459-7, 46292-0, 60120-5, 77512-1 #### [facility] ([id number]) [address], [address] [place] [address] FREE KAPPA LT CHAINS 2.91 mg/dL High 0.33-1.94 [facility] Comment on above: Performed By: #### C SHARATH, KELVIN, 1987-12, FEPR, 2276-4, 2284-8, 31219-0, 2132-9, 55136-1, 39173-9, 5130-0, 98650-6, 75796-8, 92368-6, 3357-1, 8092-9, 04345-9, 74164-8, 01396-7, 07224-0, 51841-8 #### [facility] ([id number]) [address], [address] [place] [address] FREE LAMBDA LT CHAINS 2.38 mg/dL Normal 0.57-2.63 [facility] Comment on above: Performed By: #### C BCA, CMP, 1987-12, FEPR, 2276-4, 2284-8, 09863-4, 2132-9, 62337-1, 39881-4, 5130-0, 06769-6, 01065-9, 83785-9, 3357-1, 8092-9, 56252-7, 68356-0, 10409-8, 60410-9, 27778-3 #### [facility] ([id number]) [address] [facility] [address], [address] [place] [address] IgA [Mass/Vol] 180 mg/dL Normal 68-378 [facility] Comment on above: Performed By: #### C BCA, CMP, 1987-12, FEPR, 6-4, 2284-8, 01759-8, 2132-9, 00844-4, 63306-0, 5130-0, 89906-6, 94827-0, 90480-8, 3357-1, 8092-9, 03951-9, 75188-9, 16104-2, 03128-3, 76549-9 #### [facility] ([id number]) [address], [address] [place] [address] IgG [Mass/Vol] 992 mg/dL Normal 635-1741 [facility] Comment on above: Performed By: #### C BCA, CMP, 1987-12, FEPR, 2276-4, 2284-8, 97558-9, 2132-9, 60477-6, 16505-2, 5130-0, 85820-3, 05952-4, 28851-8, 3357-1, 8092-9, 31845-5, 04641-8, 25555-8, 83835-2, 81392-6 #### [facility] ([id number]) [address], [address] [place] [address] IgM [Mass/Vol] 285 mg/dL High 45-281 [facility] Comment on above: Performed By: #### C BCA, CMP, 1987-12, FEPR, 2276-4, 2284-8, 11486-5, 2132-9, 09926-8, 63400-6, 5130-0, 12403-0, 82811-3, 19658-7, 3357-1, 8092-9, 30999-8, 93268-3, 84054-2, 76457-0, 04264-2 #### [facility] ([id number]) [address], [address] [place] [address] IMMUNE PROFILE INTERP SEE SEPARATE REPORT Normal [facility] Comment on above: Performed By: #### C BCA, CMP, 1987-12, FEPR, 2276-4, 2284-8, 76440-7, 213-9, 97757-9, 44133-1, 5130-0, 91134-9, 10213-9, 54910-5, 3357-1, 8092-9, 09914-9, 71353-9, 30016-7, 19596-9, 01372-4 #### [facility] ([id number]) [address], [address] [place] [address] IRON PROFILEon 09-23-2023 Iron [Mass/Vol] 25 ug/dL Low 50-170 [facility] Comment on above: Performed By: #### C BCA, CMP, 1987-12, FEPR, 2276-4, 2284-8, 02975-1, 213-9, 93044-1, 76763-2, 5130-0, 95481-5, 63568-6, 96538-4, 3357-1, 8092-9, 22612-4, 14764-4, 06045-8, 98994-6, 86921-2 #### [facility] ([id number]) [address] [facility] [facility] [address], [address] [place] [address] IRON BINDING 179 ug/dL Low 250-425 [facility] Comment on above: Performed By: #### C BCA, CMP, 1987-, FEPR, 2276-4, 2284-8, 00302-4, 2132-9, 35141-7, 81114-0, 5130-0, 61210-9, 08615-3, 64879-6, 3357-1, 8092-9, 24299-5, 63992-3, 37453-0, 52735-4, 98175-0 #### [facility] ([id number]) [address] [place] [address], [address] [place] [address] IRON SATURATION 14 % SATURATION Low 15-50 [facility] Comment on above: Performed By: #### C BCA, CMP, 1987-12, FEPR, 2276-4, 2284-8, 12322-0, 2-9, 00372-8, 15292-4, 5130-0, 34496-2, 91332-7, 46712-6, 3357-1, 8092-9, 13167-9, 65588-2, 52335-8, 85918-0, 20291-0 #### [facility] ([id number]) [address] [facility], [address] [place] [address] Iron and TIBCon 09-23-2023 Interpretation and review of laboratory results Abnormal [facility] Iron [Mass/Vol] 25 ug/dL Low 50 - 170 ug/dL [facility] Iron binding capacity [Mass/Vol] 179 ug/dL Low 250 - 425 ug/dL [facility] Iron saturation [Mass fraction] 14 Low [facility] JAK2 gene p.Euz380Lbc Molgen Ql (Bld/Tiss)on 09-23-2023 JAK2 V617F MUTATION, BLOOD SEE COMMENTS 09/26/2023 10:21 AM Normal [facility] Comment on above: Result Comment: NOTE Test Result Flag Unit RefValue ----- JAK2 V617F Mutation Detection, B JAK2 Result see interpretation JAK2 V617F Mutation Detection, B See Note Peripheral blood, JAK2 V617F mutation analysis: Negative for JAK2 V617F. A negative [id number] test result does not exclude the possibility [...] assay has been determined at 0.06% (see [facility] Interpretive Handbook for method details). This test was developed and its performance characteristics determined by [facility] in a manner consistent with CLIA requirements. This test has not been cleared or approved by the U.S. Food and Drug Administration. Test Performed by: [facility] - [address] [address] Supply Chain Specialist: Thierry Duran M.D. Ph.D.; CLIA# [id number] Performed By: #### C KELVIN EARLY, , FEPR, 2276-4, 2284-8, 90833-0, 2132-9, 23557-9, 34366-6, 5130-0, 55978-2, 35967-0, 91711-2, 3357-1, 8092-9, 75819-5, 90327-6, 32216-8, 15592-3, 52628-6 #### [facility] ([id number]) [address] [place] [address], [address] [place] [address] Tiki 1 AB IGGon 09-23-2023 Anileridine Ql (U) NINF [facility] LDHon 09-23-2023 LDH [Catalytic activity/Vol] 140 U/L 100 - 235 U/L [facility] LDH [Catalytic activity/Vol] on 09-23-2023 [facility] LDH 140 U/L Normal 100-235 [facility] Comment on above: Performed By: #### C BCA, CMP, 1987-12, FEPR, 2276-4, 2284-8, 13309-3, 2132-9, 66129-6, 31732-8, 5130-0, 05163-9, 38173-9, 52382-7, 3357-1, 8092-9, 46262-8, 29263-9, 45972-2, 50429-1, 66995-3 #### [facility] ([id number]) [address] [place] [address], [address] [place] [address] Methylmalonate [Moles/Vol]on 09-23-2023 MMA QN 0.23 umol/L Normal <=0.40 [facility] Comment on above: Result Comment: NOTE This test was developed and its performance characteristics determined by [facility]'s [facility] [place] ([facility]). It has not been cleared or approved by the FDA. [facility] is regulated under CLIA as qualified to perform high-complexity testing. This test is used for clinical purposes. It should not be regarded as investigational or for research. Test Performed By: [facility] [address] [place] [address] Bufferer: Meño Hernandez III, M.D. CLIA #[id number] Narrative diagnostic report Molgen Yaw (Bld/Tiss) [Interp]on 09-23-2023 BCR/ABL PCR w/Reflex SEE COMMENTS 2023 04:24 PM Normal [facility] Comment on above: Result Comment: NOTE Test Result Flag Unit RefValue ----- BCR/ABL1 Reflex, Qual/Quant Specimen Type EDTA WHOLE BLOOD BCR/ABL1 Reflex Result see interpretation Interpretation See Note Peripheral blood, BCR/ABL1 mRNA analysis, qualitative: Negative. No BCR/ABL1 mRNA transcripts were detected. Method summary: The presence or absence of BCR/ABL1 mRNA transcripts was evaluated using a qualitative, reverse child support specialist PCR-based assay. The assay detects nearly all published and theoretical BCR/ABL1 fusion forms including the common e13/e14-a2 (p210) and e1-a2 (p190) transcripts, as well as other rarer variants (e.g. e19-a2 (p230), e13/e14-a3, e1-a3, etc.). The limit of detection for this assay is 0.1%. Please contact the lab at [phone] with questions or if additional testing is required. See [facility] Test Catalog for additional method details. Signing Pathologist: Ammon Titus M.D. (Jane), Ph.D. ADDITIONAL INFORMATION This test was developed and its performance characteristics determined by [facility] in a manner consistent with CLIA requirements. This test has not been cleared or approved by the U.S. Food and Drug Administration. Test Performed by: [address] [address] Supply Chain Specialist: Thierry Duran M.D. Ph.D.; CLIA# [id number] Neutrophil cytoplasmic Ab IF Ql (S)on 09-23-2023 ANCA See Below Normal [facility] Comment on above: Result Comment: NOTE [...] See below Reviewed by Arun Tucker, Ph.D D([facility]) This test is used as an aid in diagnosis of patients with autoimmune vasculitidies. The final interpretation should be done in conjunction with ANCA test results and clinical correlation. Test Performed By: [place] [id number] Bufferer: Meño Hernandez III, M.D. CLIA #[id number] No Panel Informationon 09-23 [facility] Interpretation and review of laboratory results Abnormal [facility] Nuclear Ab IA Ql (S)on 09-23 Interpretation and review of laboratory results Abnormal [facility] SILVIA Screen w/reflex Positive Abnormal NEG [facility] Comment on above: Result Comment: Testing performed using multiplex flow immunoassay. Eleven different antigens associated with systemic autoimmune diseases (dsDNA,Sm,Sm/STRIP CATCHER,STRIP CATCHER,Chromatin, SSA,SSB,Tiki-1,Scl70,Ribo P,Centromere B) are included in this screening test. Performed By: #### C BCA, CMP, 1988-5, FEPR, 2276-4, 2284-8, 19138-2, 2132-9, 60320-4, 53640-5, 5130-0, 28072-2, 45136-5, 99034-4, 3357-1, 8092-9, 40627-7, 34157-5, 52642-4, 24226-3, 96783-2 #### [facility] ([id number]) [address] [place] [address], [address] [place] [address] comment (Bld) [Interp]on 09-23-2023 STAFF REVIEW NOTE Normal [facility] Comment on above: Result Comment: [facility] [address] [place] [address] Clinical Pathology Report Patient Name:JOSE DAVID:1945 (Age: 78)Gender:FTaken:4Reported:09/26/2023hysician(s):Olga Pan M.D. ([phone])Copy To: Rec. #:[id number]: #[id number] Final Pathologic Diagnosis Peripheral blood smear: Neutrophilic [...] Out hna/09/26/2023Og Martinez M.[place] [address], License number: [id number]. Clinical History R29.9. BLOOD SMEAR EVALUATION CBC (09/23/2023 0818): WBC = 12.1 X10E9/L; HGB = 9.1 g/dL; HCT = 27.8%; MCV = 85 fL; PLT = 924 X10E9/L OTHER LAB DATA: Noncontributory. BLOOD SMEAR: Leukocytes: Neutrophilic leukocytosis with cytotoxic changes and lymphocytopenia. Erythrocytes: Moderate normocytic normochromic anemia. Platelets: Thrombocytosis. Specimen(s) Received Blood Smear Review Fee Codes(s): 1; 14482 Performed By: #### C SHARATH, KELVIN, 1986-12, FEPR, 2276-4, 2284-8, 14640-9, 213-9, 01009-3, 25278-5, 5130-0, 49204-0, 72018-4, 38654-8, 3357-1, 8092-9, 88183-6, 37264-3, 52301-9, 93935-8, 34062-4 #### [facility] ([id number]) [address], [address] [place] [address] STRIP CATCHER AB IgGon 09-23-2023 Ribonucleoprotein extractable nuclear IgG Qn (S) [facility] Comment on above: CLIA ID [id number] Rheumatoid factoron 09-23-19 24 Rheumatoid factor Nephelometry Qn (S) 21 High [facility] Rheumatoid factor Nephelomet ry Qn (S)on 09-23-2023 Interpretation and review of laboratory results Abnormal [facility] RHEUMATOID FACTOR 21 IU/mL High <20 [facility] Comment on above: Performed By: #### C SHARATH, KELVIN, 1986-12, FEPR, 2276-4, 2284-8, 95767-5, 2131-9, 51830-8, 03566-3, 5130-0, 93529-5, 57655-4, 05157-0, 3357-1, 8092-9, 60029-3, 24229-4, 25751-8, 87040-5, 58932-1 #### [facility] ([id number]) [address], [address] [place] [address] Ribonucleoprotein extractabl e nuclear IgG Qn (S)on 09-23-2023 STRIP CATCHER ANTIBODY IGG <0.2 Normal <1.0 [facility] Comment on above: Performed By: #### C BCA, CMP, 1986-12, FEPR, 2275-4, 2284-8, 37992-2, 2132-9, 98272-4, 36080-6, 5130-0, 19892-0, 41972-8, 85930-8, 3357-1, 8092-9, 80957-2, 09817-3, 58514-9, 18161-0, 00138-4 #### [facility] ([id number]) [address], [address] [place] [address] Ribosomal P IgG Qn (S)on RIBOSOME P ANTIBODY <0.2 Normal <1.0 [facility] Comment on above: Performed By: #### C SHARATH, CMP, 1986-12, FEPR, 2275-, 2283-8, 49876-0, 2132-9, 55120-7, 31008-5, 5130-0, 82607-2, 54213-8, 89712-3, 3357-1, 8092-9, 03630-7, 86372-0, 59786-6, 80708-7, 75534-2 #### [facility] ([id number]) [address], [address] [place] [address] SCL-70 extractable nuclear A b Ql (S)on 09-23-2023 SCL 70 ANTIBODY <0.2 Normal <1.0 [facility] Comment on above: Performed By: #### C BCA, CMP, 1986-12, FEPR, 2275-, 2283-8, 45593-2, 2132-9, 33850-0, 73654-6, 5130-0, 81884-2, 68136-7, 63899-1, 3357-1, 8092-9, 96375-3, 51778-4, 28215-7, 77134-3, 35775-0 #### [facility] ([id number]) [address], [address] [place] [address] SERUM PROTEIN ELECTROPHORESI Son 09-23-2023 Albumin [Mass/Vol] 2.5 g/dL Low 3.4-5.3 [facility] Comment on above: Performed By: #### C BCA, CMP, 1986-12, FEPR, 2276-4, 2284-8, 14526-6, 2132-9, 23204-0, 80624-0, 5130-0, 49304-3, 04102-7, 07833-0, 3357-1, 8092-9, 83602-1, 45788-4, 95721-1, 87139-1, 04814-7 #### [facility] ([id number]) [address], [address] [place] [address] ALPHA 1 GLOBULIN 0.6 g/dL High 0.1-0.4 [facility] Comment on above: Performed By: #### C BCA, CMP, 1986-12, FEPR, 2275-4, 2284-8, 30108-1, 2132-9, 90129-5, 05089-6, 5130-0, 88618-9, 73548-3, 59485-5, 3357-1, 8092-9, 90598-9, 50577-7, 25179-4, 74500-6, 37664-3 #### [facility] ([id number]) [address] [place] [address] ALPHA 2 GLOBULIN 1.2 g/dL High 0.4-1.1 [facility] Comment on above: Performed By: #### C BCA, CMP, 1987-12, FEPR, 2276-4, 2284-8, 50158-8, 2132-9, 36693-3, 37631-6, 5130-0, 21367-8, 78508-8, 27247-7, 3357-1, 8092-9, 55287-0, 58663-6, 60768-8, 88760-2, 75941-4 #### [facility] ([id number]) [address], [address] [place] [address] BETA GLOBULIN 0.8 g/dL Normal 0.5-1.2 [facility] Comment on above: Performed By: #### C SHARATH, CMP, 1986-12, FEPR, 2276-4, 2284-8, 17036-7, 2132-9, 59232-2, 31321-4, 5130-0, 97428-9, 94887-6, 95089-2, 3357-1, 8092-9, 85862-0, 64400-3, 45889-0, 83441-2, 92188-8 #### [facility] ([id number]) [address], [address] [place] [address] GAMMA GLOBULIN 1.0 g/dL Normal 0.5-1.6 [facility] Comment on above: Performed By: #### C SHARATH, CMP, 1986-12, FEPR, 2276-4, 2284-8, 98693-5, 2132-9, 41855-2, 50328-6, 5130-0, 86648-6, 42870-9, 85325-0, 3357-1, 8092-9, 36184-9, 63522-1, 23744-6, 12560-0, 43452-3 #### [facility] ([id number]) [facility] [place] [address] PROT. ELECTROPHORESIS INTERP SEE SEPARATE REPORT Normal [facility] Comment on above: Performed By: #### C SHARATH, CMP, 1986-12, FEPR, 2276-4, 2284-8, 13980-0, 2132-9, 43367-3, 41811-0, 5130-0, 84606-4, 13098-8, 43784-7, 3357-1, 8092-9, 66729-2, 45016-0, 73739-9, 54009-7, 41987-8 #### [facility] ([id number]) [address], [address] [place] [address] Protein [Mass/Vol] 6.1 g/dL Normal 6.0-8.0 [facility] Comment on above: Performed By: #### C BCA, CMP, 1987-12, FEPR, 2275-4, 2283-8, 62251-5, 2131-9, 40587-7, 11912-0, 5130-0, 82368-6, 25152-8, 84989-4, 3357-1, 8092-9, 79403-7, 49305-8, 71803-5, 82349-8, 01100-0 #### [facility] ([id number]) [address], [address] [place] [address] SSA antibodyon 09-23-2023 Sjogrens syndrome-A extractable nuclear Ab Qn (S) [facility] Comment on above: CLIA ID [id number] SSB Antibodyon 09-23-2023 Sjogrens syndrome-B extractable nuclear IgG Qn (S) [facility] Comment on above: CLIA ID [id number] Scleroderma antibodyon 09-23 SCL-70 extractable nuclear Ab Ql (S) [facility] Comment on above: CLIA ID [id number] Sjogrens syndrome-A extracta ble nuclear Ab Qn (S)on 09-23-2023 SSA ANTIBODY <0.2 Normal <1.0 [facility] Comment on above: Performed By: #### C BCA, CMP, 1986-, FEPR, 2275-4, 2284-8, 06053-5, 2131-9, 93645-8, 82068-9, 5130-0, 94580-3, 35981-9, 42743-6, 3357-1, 8092-9, 83793-8, 03642-4, 07987-0, 69744-2, 64509-0 #### [facility] ([id number]) [address], [address] [place] [address] Sjogrens syndrome-B extracta ble nuclear IgG Qn (S)on 09-23-2023 SSB ANTIBODY <0.2 Normal <1.0 [facility] Comment on above: Performed By: #### C BCA, CMP, 1986-12, FEPR, 6-4, 2284-8, 43891-9, 213-9, 59547-2, 20504-0, 5130-0, 91083-3, 25180-1, 05206-8, 3357-1, 8092-9, 23580-8, 36886-4, 59144-8, 07705-6, 70576-7 #### [facility] ([id number]) [address], [address] [place] [address] Mejia extractable nuclear Ab +Ribonucleoprotein extractable nuclear IgG Qn (S)on 09-23-2023 MEJIA/STRIP CATCHER AB IGG <0.2 Normal <1.0 [facility] Comment on above: Performed By: #### C BCA, CMP, 1987-12, FEPR, 2275-4, 2283-8, 87634-2, 2131-9, 32846-8, 15604-5, 5130-0, 70469-9, 60483-6, 83653-3, 3357-1, 8092-9, 74617-6, 21502-2, 90958-0, 29177-7, 98491-2 #### [facility] ([id number]) [address], [address] [place] [address] Mejia extractable nuclear Ig G Qn (S)on 09-23-2023 ANTI-MEJIA AB IGG <0.2 Normal <1.0 [facility] Comment on above: Performed By: #### C BCA, CMP, 1986-12, FEPR, 227-4, 2284-8, 99156-8, 213-9, 69908-3, 88481-9, 5130-0, 61973-4, 41094-4, 71925-3, 3357-1, 8092-9, 14428-9, 19408-1, 05054-1, 11774-1, 93874-7 #### [facility] ([id number]) [address] [place] [address], [address] [place] [address] Mejia/STRIP CATCHER AB IgGon 4 Mejia extractable nuclear Ab+Ribonucleoprotein extractable nuclear IgG Qn (S) NINF [facility] Surgical Pathologyon 024 Surgical Pathology Normal [facility] Comment on above: Result Comment: [facility] [address] [place], [place] [address] Flow Cytometry Patient Name:JOSE DAVIDAccession #:[id number]. Rec. #:[id number]:[facility] [place] [facility] HospitalTaken:4DOB:1945 (Age: 78)Location:[facility] GEN 8 ACUTE Q729Rlbjnajx:09/23/2023Gender: FBill. Type:ToledoReported:Priority:RBilling #:[id number] Class:TTH Special Procedure OnlyPhysician(s): Charlene Chan MD [...] patterns of antigen expression are not seen. [place] on the lymphoid population demonstrates a mixed population of phenotypically unremarkable T-cells, natural killer cells, and polyclonal B-cells, without a detectable monoclonal population. Immunophenotyping antibodies tested: CD2, CD3, CD4, CD5, CD7, CD8, CD10, CD13, CD16, CD19, CD20, CD23, CD33, CD34, CD38, CD43, CD45, CD56, CD117, CD123, CD138, Marvell, and Lambda. Immunophenotyping Comment: Immunophenotyping has been used in this diagnostic evaluation. This test was developed and its performance characteristics determined by the [facility] Department. It has not [...] (Vitamin B12) [Mass/Vol] 248 pg/mL Normal 180-914 [facility] Comment on above: Performed By: #### C KELVIN EARLY, 1986-12, FEPR, 2276-4, 2284-8, 07618-8, 2132-9, 26444-5, 83019-6, 5130-0, 12328-1, 12592-7, 67726-2, 3357-1, 8092-9, 87476-6, 07425-3, 33798-6, 89375-3, 44145-8 #### [facility] ([id number]) [address] [place] [address], [address] [place] [address] Vitamin B12on 09-23-2023 Cobalamin (Vitamin B12) [Mass/Vol] 248 pg/mL 180 - 914 pg/mL [facility] dRVVT/dRVVT.excess phospholi pid Coag (PPP) [Ratio]on 09-23-2023 DILUTE KORI'S VIPER VENOM Negative Normal [facility] Comment on above: Performed By: #### C KELVIN EARLY, 1986-12, FEPR, 2276-4, 2284-8, 49577-6, 2132-9, 35459-0, 57393-5, 5130-0, 11297-5, 29776-4, 20195-5, 3357-1, 8092-9, 72893-5, 74250-6, 91626-0, 41419-2, 95343-7 #### [facility] ([id number]) [address] [place] [address] CT CSPBEHZAD WO CONon 3 CT [facility] WO CON EXAM: CT scan of the [...] by: SHANTELL GARCIA Date: 2022-12-25 08:22 Normal [facility] XR KNEE RT 4V or >on [...] lateral and patellofemoral compartments where there is gunf-rp-rqku contact. 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 Electronically authenticated by: KARAN JENKINS Date: 2022-04-25 19:06 Normal [facility] Patient Educationon 09-10-19 22 Patient Education [...] height. This can be done either in [place]ic ([place] or metric measurements. Note that charts are available to help you find your BMI quickly and easily without having to do these calculations yourself. To calculate your BMI in [place]ic ([place] measurements, your health care provider will: [...] problems. ? BMI can be measured using Icelandic measurements or metric measurements. ? To interpret [...] 04/22/2005 Document Revised: 07/24/2018 Document Reviewed: 06/24/2018 [employer] Patient Education ? 2020 [employer]. Obstetrics and Gynecology Overactive Bladder, Adult Overactive [...] A spina (more content not included)... Normal [facility] [id number]#1.00C D:127 Normal [facility] RAD - MISC [id number]#1.00C D:127 Normal [facility] Urology Office/Clinic Noteon 09-10-2021 Urology Office/Clinic [...] and history for this patient from Dr. 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 when I [...] With When Contact Information DONY SENIOR, Gilbert Moore URFaby Within 1 year, only if needed [address] [place] [address] Additional Instructions: Patient Education BMI for Adults [...] Protein Urine Dipstick: Negative (09/10/21 08:26:00) Specific [place] Urine Dipstick: 1.025 (09/10/21 08:26:00) Urine Appearance Urine Dipstick: Clear (09/10/21 08:26:00) Urine Color Urine Dipstick: Yellow (09/10/21 08:26:00) Urobilinogen Urine Dipstick: Normal 0.2-1 EU/dl (09/10/21 08:26:00) pH Urine Dipstick: 5 (09/10/21 08:26:00) Normal [facility] Comment on above: Result Comment: Elec tronically Signed By: Gilbert NAPOLES MD\.br\Date and Time Signed: 09/10/21 08:49 EST\.br\Electronically Co-Signed By: Aurora Hdz MA\.br\Date and Time Co-Signed: 09/10/21 08:46 EST Physician Orderon 09-07-2021 Physician Order [id number]#1.00C D:127 Normal [facility] Vital Signs Date Time Vital Sign Value Performing Clinician Facility 10-13-2024 14:35-0500 Body height 152.4 cm [facility] 10-13-2024 14:35-0500 Body mass index (BMI) [Ratio] 26.4 kg/m2 [facility] 10-13-2024 14:35-0500 Body temperature 96 [degF] [facility] 10-13-2024 14:35-0500 Body weight 61.46 kg [facility] 10-13-2024 14:35-0500 Diastolic blood pressure 80 mm[Hg] [facility] 10-13-2024 14:35-0500 Heart rate 82 /min [facility] 10-13-2024 14:35-0500 SaO2% (BldA) [Mass fraction] 97 % [facility] 10-13-2024 14:35-0500 Systolic blood pressure 126 mm[Hg] [facility] 10-11-2024 09:31-0500 Body height 157.5 cm Myranathanael Cota DOUBLE SURFACE OPERATOR-MOTORBIKE COURIER Work Phone: [facility] 10-11-2024 09:31-0500 Body mass index (BMI) [Ratio] 24.58 kg/m2 Myra Beata DOUBLE SURFACE OPERATOR-MOTORBIKE COURIER Work Phone: [facility] 10-11-2024 09:31-0500 Body temperature 97.81 [degF] Myra Beata DOUBLE SURFACE OPERATOR-MOTORBIKE COURIER Work Phone: [facility] 10-11-2024 09:31-0500 Body weight 60.96 kg Myra Beata DOUBLE SURFACE OPERATOR-MOTORBIKE COURIER Work Phone: [facility] 10-11-2024 09:31-0500 Diastolic blood pressure 76 mm[Hg] Myra Beata DOUBLE SURFACE OPERATOR-MOTORBIKE COURIER Work Phone: [facility] 10-11-2024 09:31-0500 Heart rate 76 /min Myra Beata DOUBLE SURFACE OPERATOR-MOTORBIKE COURIER Work Phone: [facility] 10-11-2024 09:31-0500 Respiratory rate 18 /min Myra Beata DOUBLE SURFACE OPERATOR-MOTORBIKE COURIER Work Phone: [facility] 10-11-2024 09:31-0500 SaO2% (BldA) [Mass fraction] 100 % Myra Beata DOUBLE SURFACE OPERATOR-MOTORBIKE COURIER Work Phone: [facility] 10-11-2024 09:31-0500 Systolic blood pressure 152 mm[Hg] Myra Cota DOUBLE SURFACE OPERATOR-MOTORBIKE COURIER Work Phone: [facility] 07-12-2024 13:05-0500 Body height 152.4 cm [facility] 07-12-2024 13:05-0500 Body mass index (BMI) [Ratio] 26 kg/m2 [facility] 07-12-2024 13:05-0500 Body temperature 97.3 [degF] [facility] 07-12-2024 13:05-0500 Body weight 60.44 kg [facility] 07-12-2024 13:05-0500 Diastolic blood pressure 72 mm[Hg] [facility] 07-12-2024 13:05-0500 Heart rate 90 /min [facility] 07-12-2024 13:05-0500 SaO2% (BldA) [Mass fraction] 96 % [facility] 07-12-2024 13:05-0500 Systolic blood pressure 118 mm[Hg] [facility] 04-13-2024 10:47-0400 Body height 152.4 cm [facility] 04-13-2024 10:47-0400 Body mass index (BMI) [Ratio] 25.7 kg/m2 [facility] 04-13-2024 10:47-0400 Body weight 59.87 kg [facility] 04-13-2024 10:47-0400 Diastolic blood pressure 76 mm[Hg] [facility] 04-13-2024 10:47-0400 Heart rate 81 /min [facility] 04-13-2024 10:47-0400 SaO2% (BldA) [Mass fraction] 99 % [facility] 04-13-2024 10:47-0400 Systolic blood pressure 122 mm[Hg] [facility] 02-05-2024 11:56-0400 Body mass index (BMI) [Ratio] 23.92 kg/m2 Mouna Bautista MD Work Phone: [facility] 02-05-2024 11:56-0400 Body weight 59.33 kg Mouna Bautista MD Work Phone: [facility] 02-05-2024 11:56-0400 Diastolic blood pressure 81 mm[Hg] Mouna Bautista MD Work Phone: [facility] 02-05-2024 11:56-0400 Heart rate 78 /min Mouna Bautista MD Work Phone: [facility] 02-05-2024 11:56-0400 SaO2% (BldA) [Mass fraction] 96 % Mouna Bautista MD Work Phone: [facility] 02-05-2024 11:56-0400 Systolic blood pressure 136 mm[Hg] Mouna Bautista MD Work Phone: [facility] 01-02-2024 13:46-0400 Body height 157.5 cm Mahnaz Ochoa MD Work Phone: [facility] 01-02-2024 13:46-0400 Body mass index (BMI) [Ratio] 23.5 kg/m2 Mahnaz Ochoa MD Work Phone: [facility] 01-02-2024 13:46-0400 Body weight 58.29 kg Mahnaz Ochoa MD Work Phone: [facility] 01-02-2024 13:46-0400 Diastolic blood pressure 86 mm[Hg] Mahnaz Ochoa MD Work Phone: [facility] 01-02-2024 13:46-0400 Heart rate 86 /min Mahnaz Ochoa MD Work Phone: [facility] 01-02-2024 13:46-0400 Systolic blood pressure 152 mm[Hg] Mahnaz Ochoa MD Work Phone: [facility] 12-29-2023 09:05-0400 Body height 152.4 cm [facility] 12-29-2023 09:05-0400 Body mass index (BMI) [Ratio] 25.4 kg/m2 [facility] 12-29-2023 09:05-0400 Body temperature 97.5 [degF] [facility] 12-29-2023 09:05-0400 Body weight 58.96 kg [facility] 12-29-2023 09:05-0400 Heart rate 86 /min [facility] 12-29-2023 09:05-0400 Respiratory rate 16 /min [facility] 12-29-2023 09:05-0400 SaO2% (BldA) [Mass fraction] 96 % [facility] 11-06-2023 15:01-0400 Body height 157.5 cm Allie Hoskins MD Work Phone: [facility] 11-06-2023 15:01-0400 Body mass index (BMI) [Ratio] 22.09 kg/m2 Allie Hoskins MD Work Phone: [facility] 11-06-2023 15:01-0400 Body temperature 98.6 [degF] Allie Hoskins MD Work Phone: [facility] 11-06-2023 15:01-0400 Body weight 54.8 kg Allie Hoskins MD Work Phone: [facility] [employer] [facility] 11-06-2023 15:01-0400 Diastolic blood pressure 65 mm[Hg] Allie Hoskins MD Work Phone: [facility] [employer] [facility] 11-06-2023 15:01-0400 Heart rate 109 /min Allie Hoskins MD Work Phone: [facility] [employer] [facility] 11-06-2023 15:01-0400 Respiratory rate 24 /min Allie Hoskins MD Work Phone: [facility] [employer] [facility] 11-06-2023 15:01-0400 SaO2% (BldA) [Mass fraction] 97 % Allie Hoskins MD Work Phone: [facility] 11-06-2023 15:01-0400 Systolic blood pressure 151 mm[Hg] Allie Hoskins MD Work Phone: [facility] 10-16-2023 11:04-0500 Body height 152.4 cm [facility] 10-16-2023 11:04-0500 Body mass index (BMI) [Ratio] 23.6 kg/m2 [facility] 10-16-2023 11:04-0500 Body weight 54.88 kg [facility] 10-16-2023 11:04-0500 Diastolic blood pressure 72 mm[Hg] [facility] 10-16-2023 11:04-0500 Heart rate 88 /min [facility] 10-16-2023 11:04-0500 SaO2% (BldA) [Mass fraction] 98 % [facility] 10-16-2023 11:04-0500 Systolic blood pressure 134 mm[Hg] [facility] 10-16-2023 09:50-0500 Diastolic blood pressure 74 mm[Hg] Mouna Bautista MD Work Phone: [facility] 10-16-2023 09:50-0500 Heart rate 72 /min Mouna Bautista MD Work Phone: [facility] 10-16-2023 09:50-0500 Systolic blood pressure 140 mm[Hg] Mouna Bautista MD Work Phone: [facility] 10-16-2023 09:49-0500 Body height 157.5 cm Mouna Bautista MD Work Phone: [facility] 10-16-2023 09:49-0500 Body mass index (BMI) [Ratio] 21.51 kg/m2 Mouna Bautista MD Work Phone: [facility] 10-16-2023 09:49-0500 Body weight 53.34 kg Mouna Bautista MD Work Phone: [facility] 10-16-2023 09:49-0500 Respiratory rate 18 /min Mouna Bautista MD Work Phone: [facility] 09-26-2023 15:31-0500 Body temperature 98.2 [degF] Rahaf Milian MD Work Phone: [facility] 09-26-2023 15:31-0500 Heart rate 103 /min Bart Milian MD Work Phone: [facility] 09-26-2023 15:31-0500 Respiratory rate 16 /min Bart Milian MD Work Phone: [facility] 09-26-2023 15:31-0500 SaO2% (BldA) [Mass fraction] 96 % Bart Milian MD Work Phone: [facility] 09-26-2023 07:20-0500 Diastolic blood pressure 84 mm[Hg] Bart Milian MD Work Phone: [facility] 09-26-2023 07:20-0500 Systolic blood pressure 152 mm[Hg] Bart Milian MD Work Phone: [facility] 09-24-2023 13:40-0500 Body height 157.5 cm Bart Milian MD Work Phone: [facility] 09-24-2023 13:40-0500 Body mass index (BMI) [Ratio] 21.21 kg/m2 Bart Milian MD Work Phone: [facility] 09-24-2023 13:40-0500 Body weight 52.6 kg Bart Milian MD Work Phone: [facility] Encounters Encounter Date Encounter Type Care Provider Facility Start: 10-13-2024 End: 10-13-2024 ambulatory [facility] Work Phone: Start: 10-13-2024 End: 10-13-2024 Patient encounter procedure [facility] Work Phone: Start: 10-11-2024 End: 10-11-2024 Office outpatient visit 40 minutes Myra Cota APRN-[employer] Work Phone: [facility] - Medical Oncology Comment on above: Normocytic anemia (P rimary Dx); Thrombocytosis; Anemia, unspecified type; Iron deficiency; Giant cell arteritis ([facility]); Vision blurred Start: 10-11-2024 End: 10-11-2024 ambulatory [facility] Marisol BEATA [facility] Start: 10-06-2024 End: 10-06-2024 ambulatory [facility] Start: 09-02-2024 Non-patient / Non-visit [facility] Work Phone: Start: 07-16-2024 End: 07-16-2024 Patient encounter procedure [facility] Work Phone: Start: 07-12-2024 End: 07-12-2024 ambulatory [facility] Work Phone: Start: 07-12-2024 End: 07-12-2024 Patient encounter procedure [facility] Work Phone: Start: 07-07-2024 Non-patient / Non-visit [facility] Work Phone: Start: 05-05-2024 End: 05-05-2024 ambulatory [facility] Start: 04-30-2024 Non-patient / Non-visit [facility] Work Phone: Start: 04-14-2024 Patient encounter procedure [facility] Start: 04-13-2024 End: 04-13-2024 ambulatory [facility] Work Phone: Start: 04-13-2024 End: 04-13-2024 Patient encounter procedure [facility] Work Phone: Start: 03-08-2024 End: 03-08-2024 Orders Only Roxie aguiar [place] - Medical Oncology Comment on above: Normocytic anemia (P rimary Dx); Thrombocytosis; Anemia, unspecified type Start: 03-05-2024 Non-patient / Non-visit [facility] [facility] Work Phone: Start: 02-05-2024 End: 02-05-2024 Office outpatient visit 10 minutes Mouna Bautista MD Work Phone: [facility] Comment on above: Giant cell arteritis (CMS-HCC) (Primary Dx) Start: 02-05-2024 ambulatory MOUNA BAUTISTA [facility] Start: 01-28-2024 End: 01-28-2024 ambulatory [facility] Start: 01-02-2024 End: 01-02-2024 ambulatory [facility] Start: 01-02-2024 End: 01-02-2024 Office outpatient visit 25 minutes Mahnaz Ochoa MD Work Phone: [facility] Neu[facility] Comment on above: Giant cell arteritis (CMS-HCC) (Primary Dx) Start: 12-29-2023 End: 12-29-2023 ambulatory [facility] Work Phone: Start: 12-29-2023 End: 12-29-2023 Patient encounter procedure [facility] Work Phone: Start: 12-29-2023 Non-patient / Non-visit [facility] Work Phone: Start: 11-26-2023 End: 11-26-2023 ambulatory [facility] Start: 11-06-2023 End: 11-06-2023 Office outpatient visit 40 minutes Allie Hoskins MD Work Phone: Adelaida Keane [facility] - Medical Oncology Comment on above: Normocytic anemia (P rimary Dx); Thrombocytosis Start: 11-06-2023 Orders Only Malinda Keane [facility] Comment on above: Giant cell arteritis (CMS-HCC) (Primary Dx); Stroke-like symptoms; Vision blurred; Anemia, unspecified type Start: 10-30-2023 Non-patient / Non-visit [facility] Work Phone: Start: 10-17-2023 Telephone encounter Beronica Suh Neurology Comment on above: Med Refill Start: 10-16-2023 End: 10-16-2023 ambulatory [facility] Work Phone: Start: 10-16-2023 End: 10-16-2023 Patient encounter procedure [facility] Work Phone: Start: 10-16-2023 End: 10-16-2023 ambulatory [facility] Paul ALYSIA [facility] Start: 10-16-2023 End: 10-16-2023 Office outpatient visit 15 minutes Mouna Bautista MD Work Phone: [facility] Comment on above: Giant cell arteritis ([facility]-HCC) (Primary Dx) Start: 09-29-2023 Telephone encounter Rosa [facility] Comment on above: Hospital Follow-up Start: 09-27-2023 End: 09-27-2023 Evaluation and management of inpatient RICKIE OHRUBI [facility] Start: 09-24-2023 End: 09-27-2023 Evaluation and management of inpatient TREVIN [facility] Start: 09-24-2023 End: 09-27-2023 Evaluation and management of inpatient CARLITOS BREWER [facility] Start: 09-24-2023 ambulatory JOHN PATEL [facility] Start: 09-23-2023 End: 09-26-2023 [facility] Start: 09-23-2023 End: 09-26-2023 Evaluation and management of inpatient Tono Pan MD Work Phone: [facility] - GEN 8 Acute Comment on above: B12 deficiency (Prim lisa Dx); Thrombocytosis; Vision blurred; Temporal arteritis (CMS-HCC) Start: 03-24-2023 End: 03-25-2023 ambulatory Naomy Lujan MD Facility: [facility] Start: 03-10-2023 End: 03-11-2023 ambulatory Naomy Lujan MD Facility:[facility] Start: 03-03-2023 End: 03-04-2023 ambulatory Naomy Lujan MD Facility:[facility] Start: 02-17-2023 End: 02-18-2023 ambulatory Naomy Lujan MD Facility:[facility] Start: 02-03-2023 End: 02-04-2023 ambulatory Naomy Lujan MD Facility:[facility] Start: 01-24-2023 End: 01-25-2023 ambulatory Naomy Lujan MD Facility:[facility] Start: 12-25-2022 End: 12-25-[address] PATO [...] Phone: Start: 09-23-2023 Bcr/abl1 major breakpnt qualitative/quantitative Elton Hinders DOUBLE SURFACE OPERATOR-MOTORBIKE COURIER Work Phone: Start: 09-23-2023 Antihuman globulin direct each antiserum Elton Hinders DOUBLE SURFACE OPERATOR-MOTORBIKE COURIER Work Phone: Start: 09-23-2023 ANCA Trevin López [...] Work Phone: Start: 09-23-2023 Jak2 gene analysis 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 variant Bart Milian MD Work Phone: Start: [...] Treatment Date Care Activity Detail Author Start: 10-11-2025 Tobacco Screening Tobacco Screening [facility] Start: 03-08-2025 Adult BMI Screening Adult BMI Screening [facility] Start: 02-04-2025 Adult BMI Screening Adult BMI Screening [facility] Start: 02-04-2025 Tobacco Screening Tobacco Screening [facility] Start: 01-01-2025 Adult BMI Screening Adult BMI Screening [facility] Start: 01-01-2025 Tobacco Screening Tobacco Screening [facility] Start: 12-10-2024 End: 12-10-2024 Patient encounter procedure 12/10/2024 2:30 PM EDT Office Visit Adelaida Keane [facility] [address] [place] [phone] Allie Hoskins MD [address] [place] [address] Adelaida eKane [facility] Oncology Start: 11-05-2024 Adult BMI Screening Adult BMI Screening [facility] Start: 10-16-2024 Adult BMI Screening Adult BMI Screening [facility] Start: 10-16-2024 Tobacco Screening Tobacco Screening [facility] Start: 09-24-2024 Adult BMI Screening Adult BMI Screening [facility] Start: 09-24-2024 Tobacco Screening Tobacco Screening [facility] Start: 09-23-2024 Depression Screening Depression Screening [facility] Start: 09-09-2024 End: 09-09-2024 Patient encounter procedure 09/09/2024 1:15 PM EST Office Visit Adelaida Keane [facility] [address] [place] [phone] Allie Hoskins MD [address] [place] [id number] Adelaida Keane [facility] Start: 04-25-2024 Influenza vaccination Influenza Vaccine [facility] Start: 03-05-2024 End: 03-05-2024 Patient encounter procedure 03/05/2024 2:15 PM EDT Office Visit Adelaida Keane [facility] [address] [place] [phone] Allie Hoskins MD [address] [place] [address] Adelaida Keane [facility] Start: 02-05-2024 End: 02-05-2024 Patient encounter procedure 02/05/2024 11:30 AM EDT Office Visit [facility] [address] [place] [address] Mouna Bautista MD [address], [address] [address] (Work) [facility] Start: 01-15-2024 End: 01-15-2024 Patient encounter procedure 01/15/2024 11:00 AM EDT Office Visit [facility] [address] [place] [address] Mouna Bautista MD [address], [address] [address] [facility] Start: 01-02-2024 End: 01-02-2024 Patient encounter procedure 01/02/2024 1:15 PM EDT Office Visit [facility] [address] [place] [phone] Darci Santana MD [address] [place] [address] [facility] Start: 12-05-2023 End: 12-05-2023 Patient encounter procedure 12/05/2023 10:15 AM EDT Office Visit [facility] [address] [place] [phone] Darci Santana MD [address] [place] [address] [facility] Start: 11-06-2023 End: 11-06-2023 Patient encounter procedure 11/06/2023 3:30 PM EDT Office Visit Adelaida Keane [facility] [place] [phone] Allie Hoskins MD [address] [place] [address] [facility] Start: 10-16-2023 End: 10-16-2023 Patient encounter procedure 10/16/2023 9:10 AM EST Office Visit [facility] [address] [place] [address] Mouna Bautista MD [address], [address] [address] [facility] Start: 04-25-2023 Influenza vaccination Influenza Vaccine [facility] Start: 2011 Fall Risk Screening Fall Risk Screening [facility] Start: 1996 Administration of varicella zoster vaccine Zoster (Shingles) Vaccine (1 of 2) [facility] Start: 1965 DTaP,Tdap and Td Vaccines (1 - Tdap) DTaP,Tdap and Td Vaccines (1 - Tdap) [facility] Start: 1945 Medicare Annual Wellness Visit Medicare Annual Wellness Visit [facility] End: 09-26-2024 Basic metabolic 2000 panel - Serum or Plasma Basic Metabolic Panel Lab Routine Vision blurred 1 Occurrences starting 09/26/2023 until 09/26/2024 [facility] Comment on above: 1 Occurrences starting 09/26/2023 until 09/26/2024 End: 09-26-2024 CBC W Auto Differential panel - Blood CBC auto differential Lab Routine Thrombocytosis 1 Occurrences starting 09/26/2023 until 09/26/2024 [employer] Comment on above: 1 Occurrences starting 09/26/2023 until 09/26/2024 End: 11-05-2024 CBC W Auto Differential panel - Blood CBC auto differential Lab Routine Giant cell arteritis (CMS-HCC) Stroke-like symptoms Vision blurred Anemia, unspecified type every 2 months for 2 Occurrences starting 11/06/2023 until 11/05/2024 [employer] Work Phone: Comment on above: every 2 months for 2 Occurrences startin g 11/06/2023 until 11/05/2024 End: 11-05-2024 Ferritin [Mass/volume] in Serum or Plasma Ferritin Lab Routine Giant cell arteritis (CMS-HCC) Stroke-like symptoms Vision blurred Anemia, unspecified type every 2 months for 2 Occurrences starting 11/06/2023 until 11/05/2024 [employer] Comment on above: every 2 months for 2 Occurrences startin g 11/06/2023 until 11/05/2024 End: 09-23-2023 Flow cytometry blood only [employer] Work Phone: Comment on above: Once for 1 Occurrences starting 09/23/19 until 09/23/2023 Immunoelectrophoresi s for Therapy Monitoring Immunoelectrophoresis for Therapy Monitoring Lab Routine 09/23/2023 12:56 PM EST [employer] Work Phone: End: 11-05-2024 Iron and TIBC Iron and TIBC Lab Routine Giant cell arteritis (CMS-HCC) Stroke-like symptoms Vision blurred Anemia, unspecified type every 2 months for 2 Occurrences starting 11/06/2023 until 11/05/2024 [employer] Comment on above: every 2 months for 2 Occurrences startin g 11/06/2023 until 11/05/2024 Methylmalonate [Moles/volume] in Serum or Plasma Methylmalonic acid screen Lab Routine 09/23/2023 12:57 PM EST [employer] End: 09-23-2023 Methylmalonic acid screen Methylmalonic acid screen Lab Routine Once for 1 Occurrences starting 09/23/2023 until 09/23/2023 [employer] Work Phone: Comment on above: Once for 1 Occurrences starting 09/23/19 until 09/23/2023 Protein electrophore sis, serum Protein electrophoresis, serum Lab Routine 09/23/2023 12:56 PM EST [employer] Payers Date Payer Category Payer Medicare HMO [employer] [id number] 2023 Medicare [id number] 2022 Medicare 2016 Private Health Insurance [id number] 1959 Medicare [id number] 1945 Unknown [id number] 2.16.840.1.132187.3.579 .2.593 1946 Unknown [id number] 2.16.840.1.165543.3.579 .2.593 1945 Unknown [id number] 2.16.840.1.818730.3.579 .2.196 1946 Unknown [id number] 2.16.840.1.658487.3.579 .2.196 1946 Unknown [id number] 2.16.840.1.287787.3.579 .2.196 1946 Unknown [id number] 2.16.840.1.643999.3.579 .2.196 1946 Unknown [id number] 2.16.840.1.402454.3.579 .2.196 1946 Unknown [id number] 2.16.840.1.570035.3.579 .2.196 1946 Unknown [id number] 2.16.840.1.591542.3.579 .2.1286 1946 Unknown [id number] 2.16.840.1.803750.3.579 .2.1286 1946 Unknown [id number] 2.16.840.1.788596.3.579 .2.1286 1946 Unknown [id number] 2.16.840.1.891718.3.579 .2.1286 1946 Unknown [id number] 2.16.840.1.805481.3.579 .2.1286 1946 Unknown [id number] 2.16.840.1.793191.3.579 .2.1285 1946 Unknown [id number] 2.16.840.1.510709.3.579 .2.128 1946 Unknown [id number] 2.16.840.1.676612.3.579 .2.1285 1946 Unknown [id number] 2.16.840.1.578474.3.579 .2.1285 1946 Unknown [id number] 2.16.840.1.589777.3.579 .2.1285 1946 Unknown [id number] 2.16.840.1.295179.3.579 .2.128 1946 Unknown [id number] 2.16.840.1.721065.3.579 .2.1285 1946 Unknown [id number] 2.16.840.1.190211.3.579 .2.1285 1946 Unknown [id number] 2.16.840.1.707767.3.579 .2.128 1946 Unknown [id number] 2.16.840.1.049054.3.579 .2.1285 1946 Unknown [id number] 2.16.840.1.139905.3.579 .2.1285 1946 Unknown [id number] 2.16.840.1.151343.3.579 .2.1286 Self-pay Self Pay [id number] Social History Date Type Detail Facility Start: 10-16-2023 End: 04-13-2024 Tobacco smoking status NHIS Ex-smoker (finding) [facility] Start: 1945 Sex Assigned At Female F [facility] Start: 07-12-2024 End: 10-13-2024 Sex Female (finding) [facility] Start: 09-23-2023 Tobacco smoking stat us ORIS Never smoked tobacco [facility] Start: 09-23-2023 Tobacco use and exposure Smoke less tobacco non-user [facility] Start: 01-02-2024 End: 10-11-2024 Alcoholic beverage intake Lifetime non-drinker (finding) [facility] Start: 10-05-2020 End: 09-23-2023 History of Social function [facility] Start: 10-05-2020 End: 09-23-2023 Alcohol Use Disorder Identification Test - Consumption [AUDIT-C] [facility] How often to you hav e a drink containing alcohol? Never [facility] How many standard dr inks containing alcohol do you have on a typical day? Patient does not drink [facility] Start: 1945 Sex assigned at Not on file P [facility] Goals Date Patient Goal Desired Activity /State Personal health goal Comment on above: Formatting of this n ote might be different from the original. Evaluation of progress towards goal: Home with dtr, self care Clinical Notes 09-23-2023 to 10-11-2024 Myra Cota, REINA-MOTORBIKE COURIER - 10/11/2024 9:30 AM ESTPatient Instructions Note Date & Type Note Facility 10-11-2024 History of Present illness Narrative Images from the original note were not included. [facility] [address] [place] [phone] 10/11/2024 Chief Complaint Patient presents with Follow-up Subjective/Interval events: Jose David is a 79 y.o. year old female who is an established patient seen today in the Hematology/Medical Oncology clinic. Presents accompanied by her daughter for follow up visit for AMY and vitamin B12 deficiency. She is currently taking ferrous sulfate 325 mg twice daily and vitamin B12 1000 mcg daily. Patient reports that she gets an upset stomach with her vitamin B12 pill. She states she does not get an upset stomach when she takes her ferrous sulfate b.i.d.. She worked with her tip finisher to change these medications. He placed her on a multivitamin daily. And she does have a lower dose B12 supplement. She tells me that once she gets up and moving she feels overall good as far as energy level. Lower since she cannot get around due to worsening vision loss. She was diagnosed with GCA recently (biopsy confirmed). She has had progressive vision loss. She denies SOB, CP, palpitations, NVD, constipation, muscle cramps in legs, restless legs, PICA. Denies any overt signs of bleeding including hematochezia, melena, or hematemesis. All questions answered to the patient's satisfaction. History of Present Illness: Mrs. David is a 78 y.o. female with no significant past medical history presented to advanced analytics associate on 09/19/2023 due to blurry vision in left eye, she was told her optic disc was swollen and the patient was given a referral to fashion marketer. Over the weekend patients vision in left eye continued to worsen and eventually lost all vision in left eye. Patient was seen by fashion marketer 09/22/2023 and time she would decreased vision also in her right eye. It was recommended that she go straight to the emergency department, for concern for giant cell arteritis. Initially she went to [facility] where they gave her Solu-Medrol 250 mg IV 1 dose and then transferred her to [facility]. When she arrived at [facility] she had complete vision loss in both eyes. Neurology has seen patient she was noted to have elevated platelet count 924,000, elevation of ESR 130, and CRP 13.3. Patient was also found to be anemic, iron 25, TIBC 179, iron saturation 14%, ferritin 478. the patient is currently on 50 mg of prednisone, plan to start Actemra In the near future. I have reviewed the patient's inpatient labs [...] day, repeat CBC and iron study at [facility] in 2 months. Follow-up in 4 months. If patient can not tolerate oral iron supplement, consider IV iron treatment. Review of Symptoms as below unless otherwise stated in HPI ECO- Asymptomatic Physical exam: Vitals: BP 152/76 Pulse 76 Temp 36.6 C (97.8 F) (Oral) Resp 18 Ht 157.5 cm (5' 2.01 ) Wt 61 kg (134 lb 6.4 oz) SpO2 100% BMI 24.58 kg/m Body mass index is 24.58 kg/m . Wt Readings from Last 3 Encounters: 10/11/24 61 kg (134 lb 6.4 oz) 03/08/24 60.2 kg (132 lb 12.8 oz) 02/05/24 59.3 kg (130 lb 12.8 oz) Physical Exam Constitutional: Appearance: Normal appearance. She is normal weight. Cardiovascular: Rate and Rhythm: Normal rate and regular rhythm. Pulses: Normal pulses. Heart sounds: Normal heart sounds. Pulmonary: Effort: Pulmonary effort is normal. Breath sounds: Normal breath sounds. Abdominal: General: Abdomen is flat. Bowel sounds are normal. Palpations: Abdomen is soft. Musculoskeletal: General: Normal range of motion. Cervical back: Normal range of motion and neck supple. Skin: General: Skin is warm and dry. Capillary Refill: Capillary refill takes less than 2 seconds. Neurological: General: No focal deficit present. Mental Status: She is alert and oriented to person, place, and time. Mental status is at baseline. Psychiatric: Mood and Affect: Mood normal. Behavior: Behavior normal. Thought Content: Thought content normal. Judgment: Judgment normal. Recent labs: Latest Reference Range & Units 09/26/23 05:32 White Blood Cells 4.0 - 11.0 X10E9/L 10.5 RBC count 3.80 - 5.20 X10E12/L 2.88 (L) Hemoglobin 11.7 - 15.5 g/dL 8.2 (L) Hematocrit 35 - 47 % 24.8 (L) MCV 80 - 100 fL 86 MCH 27 - 34 pg 28.5 MPV 7 - 12 fL 6.4 (L) MCHC 32 - 36 g/dL 33.1 RDW 11.5 - 15.0 % 14.4 Platelets 150 - 450 X10E9/L 686 (H) % monocytes % 9.0 % neutrophils % 67.6 % Basophils % 0.8 % eosinophils % 0.0 % lymphocytes % 22.6 Basophils Absolute 0.0 - 0.2 X10E9/L 0.1 Eosinophils Absolute 0.0 - 0.4 X10E9/L 0.0 Lymphocytes Absolute 1.0 - 3.5 X10E9/L 2.4 Monocytes Absolute 0 - 0.9 X10E9/L 1.0 (H) Neutrophils Absolute (A) 1.5 - 6.6 X10E9/L 7.1 (H) Sodium 134 - 146 mmol/L 141 Potassium 3.5 - 5.0 mmol/L 3.9 Chloride 98 - 109 mmol/L 103 CO2 22 - 32 mmol/L 30 Glucose 65 - 99 mg/dL 79 Creatinine 0.40 - 1.00 mg/dL 0.65 BUN 5 - 27 mg/dL 26 Calcium 8.5 - 10.5 mg/dL 7.9 (L) Anion gap 5 - 15 mmol/L 8 eGFR (CKD-EPI)non-race dependent >59 ml/min/1.73sq.m >90 (L): Data is abnormally low (H): Data is abnormally high Problem list: Problem List Items Addressed This Visit Cardiovascular and Mediastinum Giant cell arteritis (CMS-HCC) Hematopoietic and Hemostatic Normocytic anemia - Primary Thrombocytosis Other Vision blurred Other Visit Diagnoses Anemia, unspecified type Iron deficiency Impression: #. 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 Normocytic anemia, worsening #. Iron deficiency, stable #. Thrombocytosis - worsening and then improving Ferrous sulfate 325 mg BID started with resolution of anemia, iron deficiency, and thrombocytosis initially - No GI distress from ferrous sulfate Plan: Decrease ferrous sulfate to 325 mg once daily Iron levels mildly elevated, ferritin 478 Continue multivitamin daily with vitamin B12 250 mcg daily Vitamin B12 - 248 SILVIA screen positive with elevated CRP and RF BCR/ABL negative, JAK2 negative Follow up in 2 months with labs prior CBC-d CMP iron panel ferritin vitamin B12 folate Thank you for allowing me to participate in this patient's care. MYRA COTA, ALANNA 10/11/2024 9:57 AM Total time spent was 35 minutes: Preparing to see the patient (e.g., review of tests) Obtaining and/or reviewing separately obtained history Performing a medically appropriate examination and/or evaluation Counseling and educating the patient/family/caregiver Referring and communicating with other health assistant child care teacher (not separately reported) Documenting clinical information in the electronic or other health record Independently interpreting results (not separately reported) and communicating results to the patient/family/caregiver Care coordination (not separately reported) ------ Please note that portions of this note may have been generated using voice recognition [employer] dictation software. Although every effort was made to ensure the accuracy of any automated transcriptions, some errors may have occurred. ALANNA Pond 03/08/24 [id number] ALANNA Pond 10/11/24 [id number] documented in this encounter [facility] 10-11-2024 Instructions ALANNA Pond - 10/11/2024 9:30 AM EST Continue ferrous sulfate 325 mg twice daily - decrease to once daily Iron levels mildly elevated, ferritin 478 Folate adequate 13.0 Continue multivitamin daily Vitamin B12 - 248 SILVIA screen positive with elevated CRP and RF BCR/ABL negative, JAK2 negative Follow up in 2 months with labs prior CBC-d CMP iron panel ferritin vitamin B12 folate documented in this encounter [facility] 10-06-2024 Note Subjective Patient ID: Jose David is a 79 y.o. female who presents for No chief complaint on file.. HPI She was admitted to [facility] end of August 2023 due to bilateral vision loss. She underwent bilateral TA biopsy, which confirmed GCA. She is using prednisone 40 mg daily and bactrim. Will initiate treatment with Actemra 6 weeks ago. She is doing very well but no recovery of her vision. Which is not expected. Today no change in her vision, no concerns of active GCA She does not have much vision left, have difficulty ambulating with no assistance. No change compared to the last visit. No headache or stiffness. She is using prednisone 5 mg daily Review of Systems Constitutional: Positive for activity [...] problems and confusion. Objective Visit Vitals BP 135/84 (BP Location: Left arm, Patient Position: Sitting, BP Cuff Size: Adult) Pulse 76 Physical Exam Vitals and nursing note reviewed. [...] arteritis, biopsy proven both sides 08/2023. Continues prednisone 2.5 mg daily and Actemra subcutaneous injections every 2 weeks. Likely [...] every 3 months to monitor for toxicity. [facility] 05-05-2024 Note Subjective Patient ID: Jose David is a 78 y.o. female who presents for Follow-up (1 headache a few weeks ago. Increased itching for a few months ). HPI She was admitted to [facility] end of August 2023 due to [...] No change compared to the last visit. No headache or stiffness. She is using prednisone 5 mg daily Review of Systems Constitutional: Positive for activity [...] problems and confusion. Objective Visit Vitals BP 124/74 (BP Location: Left arm, Patient Position: Sitting, BP Cuff Size: Adult) Physical Exam Vitals and nursing note reviewed. [...] taper prednisone from the current dose of 5 mg daily down to 2.5 mg daily. Continue Actemra subcutaneous injections every 2 weeks. [...] every 3 months to monitor for toxicity. [facility] 04-13-2024 Evaluation note Diagnosis Onset Date Resolution At high risk for falls acute Au daniel 2023 10:44am Dry skin dermatitis acute Augus t 2023 10:44am GERD (gastroesophageal reflux disease) acute April 13 10:44am History of cataract extraction with lens replacement acute April 13 10:44am Medicare annual wellness visit, subsequent acute April 13 10:44am Temporal arteritis acute April 13, 2024 10:44am Vision loss, bilateral acute [facility] 2023 10:44am [facility] Work Phone: [phone]) 865-655807-15-2024 History of Present illness Narrative* Roxie Saldivar RN - 03/08/2024 2:46 PM EDT The patient is here for AMY follow up, labs and plan of care were reviewed with [facility]. The following recommendations were made: Continue ferrous sulfate 325 mg twice daily Continue vitamin B12 1000 mcg daily Labs in 3 months CBC-d, iron panel, ferritin, vitamin B12 Follow up in 6 months with same labs prior Patient & daughter verbalized understanding, AVS given documented in this encounterAdena Pike Medical CenterMetaIntell Veterans Affairs Medical [id number] History of Present illness Narrative* Mouna Bautista MD - 02/05/2024 11:40 AM EDT Images from the original note were not included. To: Giovanna Graf APRN-SAMRA HPI: Jose David is a 78 y.o. female with Temporal artery biopsy and temporal arteritis is being managed with Dr. Hernández. She is here for regular follow-up. Her wound has healed. She is on steroids. I told her that she does not need to follow-up with us anymore only as needed and all her follow-up should be with Dr. Hernández. Review of Systems: Review of Systems Constitutional: Negative. HENT: Negative. Respiratory: Negative. Cardiovascular: Negative. Gastrointestinal: Negative. Endocrine: Negative. Genitourinary: Negative. Musculoskeletal: Negative. Skin: Negative. Neurological: Negative. Hematological: Negative. Medications: Current Outpatient Medications on File Prior to Visit Medication Sig Dispense Refill ACTEMRA 162 mg/0.9 mL injection Inject 0.9 mL (162 mg total) under the skin once a week. aspirin 81 mg chewable tablet Chew 1 tablet (81 mg total) and swallow in the morning. cyanocobalamin 1000 MCG tablet Take 1 tablet (1,000 mcg total) by mouth in the morning. ferrous sulfate 325 (65 FE) mg EC tablet Take 1 tablet (325 mg total) by mouth in the morning and 1tablet (325 mg total) in the evening. Take with meals. 180 tablet 1 predniSONE (DELTASONE) 20 mg tablet Take 7.5 mg by mouth in the morning. Until 01/09/24 then going to 1/2 tablet a day. sulfamethoxazole-trimethoprim (BACTRIM DS) 800-160 mg per tablet Take 1 tablet by mouth. Three times a week acetaminophen (TYLENOL EXTRA STRENGTH) 500 mg tablet Take 1 tablet (500 mg total) by mouth every 6 (six) hours as needed for pain. (Patient not taking: Reported on 01/02/2024) No current facility-administered medications on file prior to visit. Past Medical History: History reviewed. No pertinent past medical history. Past Surgical History: Past Surgical History: Procedure Laterality Date APPENDECTOMY BIOPSY ARTERY TEMPORAL Bilateral 09/25/2023 Performed by Kristel Reid MD at [facility] TONSILLECTOMY TUBAL LIGATION Social and Family History: Social History Socioeconomic History Marital status: [...] on file Food Insecurity: No Food Insecurity (02/05/2024) Hunger Screening Food Insecurity - Worry: Never True Food Insecurity - Inability: Never True Transportation Needs: Not on file Physical Activity: Not on file Stress: Not on file Social Connections: Not on file Interpersonal Safety: Unknown (10/17/2023) [facility] from [facility] [place] Safety & Environment Fear of Current or Ex-Partner: Not on file Emotionally Abused: Not on file Physically Abused: Not on file Sexually Abused: Not on file Physically or Sexually Abused: Not on file Housing Instability: Not on file History reviewed. No pertinent family history. Recent Labs: Recent and relative labs were reviewed and interpreted and contributed to the assessment and plan below. Vitals: BP 136/81 (BP Site: Right Arm, BP Postition: Sitting, BP CUFF SIZE: M (9-13 inches)) Pulse 78 Wt 59.3 kg (130 lb 12.8 oz) SpO2 96% BMI 23.92 kg/m Body mass index is 23.92 kg/m . Physical Exam: Physical Exam Constitutional: Appearance: Normal appearance. HENT: Head: Normocephalic and atraumatic. Mouth/Throat: Mouth: Mucous membranes are moist. Eyes: Extraocular Movements: Extraocular movements intact. Pupils: Pupils are equal, round, and reactive to light. Cardiovascular: Rate and Rhythm: Normal rate and regular rhythm. Pulmonary: Effort: Pulmonary effort is normal. Breath sounds: Normal breath sounds. Abdominal: General: Abdomen is flat. Bowel sounds are normal. Palpations: Abdomen is soft. Musculoskeletal: General: Normal range of motion. Cervical back: Normal range of motion. Skin: General: Skin is warm and dry. Neurological: General: No focal deficit present. Mental Status: She is alert and oriented to person, place, and time. Mental status is at baseline. Psychiatric: Mood and Affect: Mood normal. Behavior: Behavior normal. Thought Content: Thought content normal. Judgment: Judgment normal. Recent testing: Assessment and Plan: Problem List Giant cell arteritis (CMS-HCC) - Primary [facility] was seen today for giant cell arteritis and leg pain. Diagnoses and all orders for this visit: Giant cell arteritis (CMS-HCC) Mouna Bautista MD, JULIANA, RPVI, FSVS, FACS [facility] This note was created with the assistance of a speech recognition program. While intending to generate a timely document that accurately reflects the content of the visit, no guarantee can be provided that every grammatical or spelling mistake has been or will be identified or corrected. Thank you for your understanding. documented in this encounterMercy Health Willard Hospital06-05-2024 NoteSubjective Patient ID: Jose David is a 78 y.o. female who presents for Follow-up (GCA. Neck pain with cramping ). HPI She was admitted to [facility] end of August 2023 due to [...] testing every 3 months to monitor for toxicity.[facility] 01-02-2024 History of Present illness Narrative* Mahnaz Ochoa MD - 01/02/2024 1:30 PM EDT Images from the original note were not included. [address] [facility] [id number] Patient: Jose David Date of : 1945 Encounter Date: 01/02/2024 Patient Care Team: Giovanna Graf APRN-SAMRA as PCP - General (Nurse Practitioner) Allie Hoskins MD as Consulting Physician (Hematology) History of Present Illness: The patient is a 78 y.o. female, a patient seen at [facility] by our service, and is here for follow-up in the hospital after she was seen by our service for giant cell arteritis. Briefly, the patient was a 78-year-old female whom the neurology consult service was consulted for a chief complaint of vision loss. Notably in August of 2023 the patient noticed blurry vision in her left eye. The patient did see her eye doctor that day and was told that her optic disc of the swollen and then the patient was given a referral to [facility] eye Center? The patient states that on the ensuing 2 days the patient has vision in the left eye worsened leading to complete vision lossin her left eye. Following 3rd day the patient started to have blurry vision in her right eye. The patient stated that she went to an eye doctor on Friday who asked her to go to the ED immediately. Patient initially went to [facility] and was given IV 250 mg Solu-Medrol once. She was then transferred to [facility] for further evaluation. Initial consideration with progressive loss of vision bilaterally taking into account the patient's age was giant cell arteritis. During initial evaluation in the hospital the patient had completely lost vision in the left eye with perception of shadows on the right. The patient was started on IV Solu-Medrol 1 g for total of 3 days. CRP ESR weresent which were elevated, ESR elevated to 114 and CRP elevated to 13.3. CT head and CTA were reportedly done at [facility] and reported to be unremarkable. MRI brain with and without contrast as well as MRI orbit with and without contrast performed which did not show an acute abnormality explaining the patient's symptoms. Rheumatology was also consulted due to consideration of giant cell arteritis. Ultimately the patient underwent bilateral temporal artery biopsy which demonstrated findings positive for giant cell arteritis. Since then, the patient follows Rheumatology in the outpatient setting and is on oral prednisone mel[place] down titrating regimen and is on Actemra as well. Both medications are managed by Rheumatology. The patient presents to our clinic as post hospital follow-up. In terms of visual symptoms, the patient continues to have no perception of vision in her left eye with some perception of shadows that she describes on rightward gaze and downward gaze in her right eye. She did describe that with Actemra she may have noticed shadows on central gaze as well howeverduring time of examination she could only note shadows to rightward gaze and downward gaze. Due to her current vision loss the patient requires constant help of her daughter's and her nephew at home for ADLs and IADLs. The patient's daughter endorses the patient is slowly becoming more independent and is able to dress herself and go to the bathroom on her own. But due to current vision loss is unable to cook/manage finances/do groceries etc.. Allergies: Penicillin Past Medical, Family, Surgical, and Social History Update: The following portions of the patient's history were reviewed and updated as appropriate: allergies, current medications, past family history, past medical history, past social history, past surgicalhistory and problem list. History reviewed. No pertinent past medical history. History reviewed. No pertinent family history. Past Surgical History: Procedure Laterality Date APPENDECTOMY BIOPSY ARTERY TEMPORAL Bilateral 09/25/2023 Performed by Kristel Reid MD at [facility] TONSILLECTOMY TUBAL LIGATION Current Outpatient Medications Medication Sig Dispense Refill ACTEMRA 162 mg/0.9 mL injection Inject 0.9 mL (162 mg total) under the skin once a week. aspirin 81 mg chewable tablet Chew 1 tablet (81 mg total) and swallow in the morning. cyanocobalamin 1000 MCG tablet Take 1 tablet (1,000 mcg total) by mouth in the morning. ferrous sulfate 325 (65 FE) mg EC tablet Take 1 tablet (325 mg total) by mouth in the morning and 1tablet (325 mg total) in the evening. Take with meals. 180 tablet 1 predniSONE (DELTASONE) 20 mg tablet Take 1 tablet (20 mg total) by mouth in the morning. Until 01/09/24 then going to 1/2 tablet a day. sulfamethoxazole-trimethoprim (BACTRIM DS) 800-160 mg per tablet Take 1 tablet by mouth. Three times a week acetaminophen (TYLENOL EXTRA STRENGTH) 500 mg tablet Take 1 tablet (500 mg total) by mouth every 6 (six) hours as needed for pain. (Patient not taking: Reported on 01/02/2024) No current facility-administered medications for this visit. (All medications reviewed and updated by provider since last office visit or hospitalization) Social History: Social History Substance and Sexual Activity Alcohol Use Never Social History Tobacco Use Smoking Status Never Smokeless Tobacco Never (If patient a smoker, smoking cessation counseling offered) Review of Systems: Neurological ROS: Review of Systems Physical Exam: Vitals: Vitals: 01/02/24 1346 BP: 152/86 BP Site: Left Arm BP Postition: Sitting Pulse: 86 Weight: 58.3 kg (128 lb 8 oz) Height: 157.5 cm (5' 2 ) Neurological Physical Exam: General: Well-appearing, no apparent distress. HEENT: Head is normocephalic and atraumatic. Neck: Supple. No thyromegaly. No carotid bruits. Chest: Clear to auscultation. Heart: Regular rate and rhythm. No murmurs auscultated. Extremities: No edema. Neurological examination: Mental status: The patient is awake alert and oriented 3. Speech is within normal limits. There is no dysarthria or aphasia. Vocabulary and knowledge base is normal to conversational testing. Cranial nerves: Pupils unreactive to light bilaterally. Pupils dilated to 4 mm in the left and 3 mmon the right. Fundi not adequately visualized during funduscopic examination performed in the clinic. The extraocular motions are intact with no nystagmus. Patient's face is symmetric with equal facial sensation. Hearing is intact to finger rubs. The tongue protruded midline and the palate elevated symmetrically. Shoulder shrug is intact bilaterally. Motor examination: Full strength throughout at 5/5, including biceps, triceps, deltoids, digit extensors, hip flexors, knee flexors, knee extensors, and foot dorsiflexors. There is normal tone and bulk throughout with no tremor or involuntary movement noted. Reflexes: Deep tendon jerks are 2/4 bilaterally at the biceps, triceps, brachioradialis, patellar, and Achilles tendons. Plantar responses are flexor. Sensory examination: Sensation is intact and equal bilaterally to fine touch and temperature sensation. Vibratory sense is intact at the bilateral great toes. Coordination: The patient able to touch her nose and extend her arms outwards appropriately in botharms, [id number] testing within normal. There is no dysmetria. The patient walks with a normal gait and no ataxia. Romberg is negative. Assessment and Plan: Biopsy-proven giant cell arteritis on tapering dose of prednisone and on Actemra. The patient follows with Rheumatology for her giant cell arteritis , management of steroids and Actemra per rheumatology. Post hospital follow-up the patient does not endorsed any new neurological signs / symptoms. At this time would recommend that she continue follow-up with Rheumatology for continue with management ofher giant cell arteritis. No further follow-up required for giant cell arteritis in the Neurology Clinic. If the patient were to have any new neurological complaints, we welcome the patient to schedule an appointment to be seen in our clinic. However at this time, recommend continued management by Rheumatology for giant cell arteritis. Follow-up: As needed Mahnaz Ochoa MD Staffed with Dr. Forbes * Nini Forbes MD - 01/02/2024 1:30 PM EDT Attending Attestation: I saw the patient. I participated and was physically present during the critical/braswell portions of the service. I was directly involved in the management and treatment plan of the patient. I reviewed the resident's note. documented in this encounterMercy Health Willard Hospital04-03-2024 NoteSubjective Patient ID: Jose David is a 78 y.o. female who presents for Follow-up (GCA). HPI She was admitted to [facility] end of August 2023 due to [...] testing every 3 months to monitor for toxicity.[facility] 11-06-2023 History of Present illness Narrative* Malinda Arrington RN - 11/06/2023 3:46 PM EDT Patient is here for consult with Dr. Hoskins. Orders received for CBC, iron studies every 2 months (print out orders). F/u in 4 months. Calendar given to family member and labs orders to be drawn at [place]. documented in this encounterMercy Health Willard Hospital03-14-2024 History of Present illness Narrative* Allie Hoskins MD - 11/06/2023 3:30 PM EDT Images from the original note were not included. [facility] 11/06/23 Jose David is a 78 y.o. year old female seen today in the oncology clinic. Chief Complaint Patient presents with Follow-up History of Present Illness: Mrs. David is a 78 y.o. female with no significant past medical history presented to advanced analytics associate on 09/19/2023 due to blurry vision in left eye, she was told her optic disc was swollen and the patient was given a referral to fashion marketer. Over the weekend patients vision in left eye continued to worsen and eventually lost all vision in left eye. Patient was seen by fashion marketer 09/22/2023 and time she would decreased vision also in her right eye. It was recommended that she go straight to the emergency department, for concern for giant cell arteritis. Initially she went to [facility] where they gave her Solu-Medrol 250 mg IV 1 dose and then transferred her to [facility]. When she arrived at [facility] she had complete vision loss in [...] 09/25/2023 Performed by Kristel Reid MD at [facility] TONSILLECTOMY TUBAL LIGATION No family history on [...] were clear to auscultation. There was no dullnessto percussion. Cardiac: Regular rate and rhythm, S1 [...] day, repeat CBC and iron study at [facility] in 2 months. Follow-up in 4 months. If patient can not tolerate oral iron supplement, consider IV iron treatment. Thank you. Allie Hoskins MD Please note that portions of this note were generated using voice recognition [employer] dictation software. Although every effort was made to ensure the accuracy of this automated child support specialist, some errors in child support specialist may have occurred. CC: Patient Care Team: Giovanna Graf APRN-SAMRA as PCP - General (Nurse Practitioner) Allie Hoskins MD as Consulting Physician (Hematology) PCP:Giovanna Graf Referring MD: John Patel DO documented in this encounterMercy Health Willard Hospital03-14-2024 Instructions* Patient Instructions* Allie Hoskins MD - 11/06/2023 3:30 PM EDT CBC, iron studies every 2 months (print out orders). F/u in 4 months. documented in this encounterMercy Health Willard Hospital02-23-2024 Miscellaneous Notes* Telephone Encounter - Beronica Vazquez - 10/17/2023 11:39 AM EST Patients Malinda cuadra said that the patient will need refills before her appointment on 12/05/2023 Medication Refill request: Medication Name and Strength:vitamin B12 1,000 mcg Current dose & Frequency: Take 1 tablet daily actually taking - not what is listed on the prescription label 30 day or 90 day supply preferred:30 Pharmacy Name: [facility] #[id number] - [place], [place] - If already [...] or 90 day supply preferred:30 Pharmacy Name: [facility] #[id number] - [place], [place] - If already [...] 90 day supply preferred: 30 Pharmacy Name: [facility]/pharm[facility] #[id number] - [place], [place] - If already on preferred pharmacy list - name only If new pharmacy - specify address & phone number * Telephone Encounter - Shadia Hua - 10/17/2023 11:39 AM EST I have attempted to contact this patient by phone with the following results: left detailed messageregarding that since patient has not been seen in clinic PCP or the provider that prescribed medication will have to fill. documented in this encounterMercy Health Willard Hospital02-23-2024 Telephone encounter Note* Telephone Encounter - Beronica Vazquez - 10/17/2023 11:39 AM EST Patients daughterMalinda said that the patient will need refills before her appointment on 12/05/2023 Medication Refill request: Medication Name and Strength:vitamin B12 1,000 mcg Current dose & Frequency: Take 1 tablet daily actually taking - not what is listed on the prescription label 30 day or 90 day supply preferred:30 Pharmacy Name: [facility]/pharmacy #[id number] - [place], [place] - If already [...] or 90 day supply preferred:30 Pharmacy Name: [id number], [place] - If already on preferred pharmacy [...] 90 day supply preferred: 30 Pharmacy Name: [facility]/pharmacy #[id number] - [place], [place] - If already on preferred pharmacy list - name only If new pharmacy - specify address & phone number [facility] Tele[facility] encounter Note* Telephone Encounter - Shadia Hua - 10/17/2023 11:39 AM EST I have attempted to contact this patient by phone with the following results: left detailed messageregarding that since patient has not been seen in clinic PCP or the provider that prescribed medication will have to fill. [facility]02-22-2024 History of Present illness Narrative* Mouna Bautista MD - 10/16/2023 9:10 AM EST Images from the original note were not included. [facility] [address] [facility] [id number] Subjective: Patient ID: Jose David is a [...] Vision blurred Stroke-like symptoms Giant cell arteritis ([facility]) Current Outpatient Medications: acetaminophen (TYLENOL EXTRA STRENGTH) 500 mg tablet, Take 1 tablet (500 mg total) by mouth every 6(six) hours as needed for pain., Disp: , [...] mg total) by mouth daily with breakfast for30 days., Disp: 90 tablet, Rfl: 0 sulfamethoxazole-trimethoprim (BACTRIM DS) 800-160 mg per tablet, Take 1 tablet by mouth 3 (three) times a week for 30 days., Disp: 12 tablet, Rfl: 0 The following portions of the patient's history were reviewed and updated as appropriate: allergies, current medications, past family history, past medical history, past social history, past surgicalhistory and problem list. Review of Systems: Review [...] orders for this visit: Giant cell arteritis ([facility]) Plan Plan: Referral to rheumatology for management of temporal arteritis. Continue steroids in the meanwhile Mouna Bautista MD documented in this encounterBarre City HospitalScion [id number] Miscellaneous Notes* Telephone Encounter - Rosa Ovalles - 09/29/2023 12:39 PM EST Please ask the following questions to the [...] OPINION? - Patient saw Dr. Byrne at [facility] Visit 09/23-08/26/2023 5. PATIENT IS SCHEDULED ON/WITH: - 12/05/2023 at 10:[address] Santana documented in this encounterMercy Health Willard Hospital02-05-2024 Telephone encounter Note* Telephone Encounter - Rosa Ovalles - 09/29/2023 12:39 PM EST Please ask the following questions to the [...] OPINION? - Patient saw Dr. Byrne at [facility] Visit 09/23-08/26/2023 5. PATIENT IS SCHEDULED ON/WITH: - 12/05/2023 at 10:[address] Santana [facility] Nurse Note* Caryn Briceno RN - 09/26/2023 5:38 PM EST Patient alert and oriented. IV and telemetry discontinued. All discharge instructions have been reviewed and are understood by the patient and daughter. Patient left the unit via wheelchair with all of their belongings and in no distress. Patient discharged home. [facility]02-02-2024 Nurse Note* Caryn Briceno RN - 09/26/2023 5:38 PM EST Patient alert and oriented. IV and telemetry discontinued. All discharge instructions have been reviewed and are understood by the patient and daughter. Patient left the unit via wheelchair with all of their belongings and in no distress. Patient discharged home. documented in this encounterMercy Health Willard Hospital02-02-2024 Hospital course Narrative* Bart Milian MD - 09/26/2023 1:16 PM EST Images from the original note were not included. [facility] Discharge Summary Patient's Name: [...] the time of the discharge: peripheral smear, [facility] Jose Davidis a 78 y.o.female with no significant past medical history, she presented to the hospital with bilateral vision loss. Patient started to notice blurry vision in her left eye 09/19, she was evaluated by Ophthalmology outpatient who referred her to eye center in [place]. Over the weekend her left eye vision significantly deteriorated to a point where she could no longer see. On 09/22, she started developing vision loss in her right eye. She visited the eye center who sent her to ER right away. Patient initially presented to the [facility] ER, she was given Solu-Medrol 250 mg IV once and transferred to [facility] for further workup. 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 Vasculitis workup showed positive [...] Your Medications These medications were sent to [facility]/pharmacy #[id number] [place] [id number] aspirin 81 mg cyanocobalamin 1000 MCG tablet [...] Adult diet Regular Texture Adult diet John Patel DO [address] [facility] [address] Schedule an appointment as soon as possible for a visit in 1 week(s) Jt Jasso MD [address] Rheumatology [facility] [phone] Schedule an appointment as soon as possible for a visit in 2 week(s) Joni Pizano MD [address] [facility], [address] [address] Schedule an appointment as soon as possible for a visit in 2 week(s) Sandy Pizano MD [address] [facility] [address], [address] [facility] [phone] Schedule an appointment as soon as possible for a visit in 1 month(s) [place] Bartlett MD [address] [facility] [address] Schedule an appointment as soon [...] Electronically signed by: BART MILIAN MD [facility], Department of Internal Medicine 09/26/23 1:16 PM documented in this encounterMer[facility] Hospital Discharge instructions* Discharge Instructions* Bart Milian MD - 09/26/2023 1:15 PM EST You are started on Aspirin to reduce senior care risk of vascular complications with you suspected condition (giant cell arteritis) also it will help with preventing thrombosis (clotting) given your Thrombocytosis (elevated platelet count). Please discuss any concerns with your primary care provider, tip finisher or drafter heating and ventilating Discuss with primary care or tip finisher DEXA scan as you are expected to be on steroid medications for prolonged period of time (up to 6 months). Log term steroids can cause Osteoporosis. * Attachments The following attachments cannot be sent through Care Everywhere. * Polymyalgia rheumatica and giant cell arteritis ([place]ic) documented in this encounterMer[facility]02-[facility] History of Present illness Narrative* Kellie Shah MD - 09/26/2023 12:30 PM EST Images from the original note were not included. [facility] Rheumatology PROGRESS NOTE DATE OF ADMISSION [...] SSA, SSB, scleroderma antibody, Tiki 1, Mejia, STRIP CATCHER, anti dsDNA, anti chromatin were negative. -No [...] past medical history presented to [facility] 09/24 for concerns of vision loss in left eye. Patient was evaluated by advanced analytics associate on 09/19/2023 due to blurry vision left eye. During the appointment she was told that her optic disc was swollen and was referred to Ophthalmology. Her vision continued to worsen and over the weekend she also all vision in left eye. To developed decreased visionin her right eye and was recommended to present to the ER for concerns of giant cell arteritis. Initially at [facility] she was given Solu-Medrol 250 mg IV 1 dose and then transferred to [facility]. [place] [facility] [place] [facility] [...] SSA, SSB, scleroderma antibody, Tiki 1, Mejia, STRIP CATCHER, anti dsDNA, anti chromatin were negative. PAST MEDICAL HISTORY: History reviewed. No pertinent past medical history. PAST SURGICAL HISTORY: Past Surgical History: Procedure Laterality Date APPENDECTOMY BIOPSY ARTERY TEMPORAL Bilateral 09/25/2023 Performed by Kristel Reid MD at [facility] TONSILLECTOMY TUBAL LIGATION ALLERGIES: Allergies Allergen [...] JVD, supple, symmetrical, trachea midline, and thyroid notenlarged, symmetric, no tenderness/mass/nodules Lungs clear to auscultation [...] mild concentric increased wall thickness/hypertrophy. Systolic function isnormal with an ejection fraction of 60-65%. The [...] are unremarkable appearing. There is no mass effectplaced on the optic chiasm. No enhancing intracranial mass/lesion. No evidence of pachymeningeal/leptomeningeal enhancement. Normal appearance of the major arterial structures in the [place]. The paranasal sinuses are clear. [...] contour and signal the globes. There is nopathologic enhancement of the optic nerves which are otherwise symmetric in appearance. Optic nervesheaths are normal. Lacrimal apparatus is unremarkable appearing. [...] of the major arterial structures in the [place]. The paranasal sinuses are clear. [...] fossa of Rosenmuller. 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 Consider direct visualization/sampling if indicated. * Mild global parenchymal atrophy with asymmetricallyadvanced atrophy of the cerebellar vermis. This is [...] I agree with the assessment and plan. * Juaquin Del Cid MD - 09/26/2023 8:04 AM EST Images from the original note were not included. [facility] Vascular [place] V[facility] Service Progress Note Subjective: Status post [...] plan of care Jose De León MD,MD [facility] 11:24 AM 09/26/2023 * Bart Milian MD - 09/25/2023 3:00 PM EST Images from the original note were not included. [facility] Hospitalists Progress Note 09/25/2023 Patient [...] 09/25/2023 Performed by Kristel Reid MD at [facility] TONSILLECTOMY TUBAL LIGATION OBJECTIVE Vital Signs: [...] is confusing, or does not make sense, thisis likely due to a recognition error within the program which was not discovered during the provider s review. If you believe an error has occurred, please notify your provider s office at your earliest convenience, so we can correct any mistakes. * Juaquin Del Cid MD - 09/25/2023 6:07 AM EST Images from the original note were not included. Vascular surgery progress note. Reason for Consultation Bilateral temporal artery biopsy, concern for giant cell arteritis History and Present Illness Jose David is a 78 y.o. White or female who presents to the emergency department from her fashion marketer's office. She was being evaluated with an fashion marketer for possible giant cell arthritis. She said [...] orbit showed incidental circumscribed 9 mm observation thelevel of the right fossa of Rosenmuller, potentially [...] Av.6 C (97.9 F) Min: 36.4 C (97.6F) Max: 36.8 C (98.2 F) Admit Weight: [...] - 09/25/2023 7:30 AM EST OR today. * Goran Thomas MD - 09/24/2023 9:20 AM EST Images from the original note were not included. 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 On Friday 09/22, patient came to [place] to see an eye doctor, whoasked her to go to the ED. patient initially went to [facility], given Solu-Medrol 250 mg IVonce, transferred to [facility] for further workup and ophthalmology evaluation. According to the patient, her right eye vision worsened significantly on Friday, and she lost her vision on both eyes. Patient had no past medical history, she has not taking any scheduled medications, patient lives with her daughter, she is driving and working. Walking with no assistive devices. Upon initial assessment in [facility], patient had complete vision loss on [...] history rheumatological disease but she has not sure.Patient has no significant past medical history, does [...] CTH, head and neck CTA done at [facility], reportedly unremarkable Impression: Binocular vision loss [...] to Friday 12-1:00 p.m. Primary Neurology service: [phone] Consult neurology service: [phone] Resident Stroke Service: [phone] If the patient belongs to the Stroke TRAM service please contact the Stroke TRAM directly. Associated attestation - Sandy Pizano MD - 09/24/2023 5:14 PM EST Attending Attestation: I saw the patient. I performed the critical/braswell portions of the service. I was directly involved inthe management and treatment plan of the patient. [...] rheumatology; will follow from distance; please call withquestions Sandy Pizano MD, PhD * Bart Milian MD - 09/24/2023 9:15 AM EST Images from the original note were not included. [facility] Hospitalists Progress Note 09/24/2023 Patient [...] IgG 992 635 - 1,741 mg/dL Free Marvell Lt Chains 2.91 (H) 0.33 - 1.94 [...] are unremarkable appearing. There is no mass effectplaced on the optic chiasm. No enhancing intracranial mass/lesion. No evidence of pachymeningeal/leptomeningeal enhancement. Normal appearance of the major arterial structures in the [place]. The paranasal sinuses are clear. [...] contour and signal the globes. There is nopathologic enhancement of the optic nerves which are otherwise symmetric in appearance. Optic nervesheaths are normal. Lacrimal apparatus is unremarkable appearing. [...] of the major arterial structures in the [place]. The paranasal sinuses are clear. [...] fossa of Rosenmuller. 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 Consider direct visualization/sampling if indicated. * Mild global parenchymal atrophy with asymmetricallyadvanced atrophy of the cerebellar vermis. This is [...] is confusing, or does not make sense, thisis likely due to a recognition error within the program which was not discovered during the provider s review. If you believe an error has occurred, please notify your provider s office at your earliest convenience, so we can correct any mistakes. * Trevin López MD - 09/23/2023 12:19 PM EST Images from the original note were not included. 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 On Friday 09/22, patient came to [place] to see an eye doctor, whoasked her to go to the ED. patient initially went to [facility], given Solu-Medrol 250 mg IVonce, transferred to [facility] for further workup and ophthalmology evaluation. According to the patient, her right eye vision worsened significantly on Friday, and she lost her vision on both eyes. Patient had no past medical history, she has not taking any scheduled medications, patient lives with her daughter, she is driving and working. Walking with no assistive devices. Upon initial assessment in [facility], patient had complete vision loss on [...] CTH, head and neck CTA done at [facility], reportedly unremarkable Impression: Binocular vision loss [...] to Friday 12-1:00 p.m. Primary Neurology service: [phone] Consult neurology service: [phone] Resident Stroke Service: [phone] If the patient belongs to the Stroke TRAM service please contact the Stroke TRAM directly. Associated attestation - Sandy Pizano MD - 09/23/2023 3:09 PM EST Attending Attestation: I saw the patient. I performed the critical/braswell portions of the service. I was directly involved inthe management and treatment plan of the patient. I reviewed the resident's note. Additional Notes/Findings: Please refer to my note as an addendum to the Neurology History and Physical by neurology resident dated 09/23/2023. Sandy Pizano MD, PhD * Bart Milian MD - 09/23/2023 9:30 AM EST Images from the original note were not included. [facility] Progress Note 09/23/2023 Patient Name: [...] is confusing, or does not make sense, thisis likely due to a recognition error within the program which was not discovered during the provider s review. If you believe an error has occurred, please notify your provider s office at your earliest convenience, so we can correct any mistakes. documented in this encounterMer[facility] Progress note* Discharge Planning Note - Sophia Rajan RN - 09/26/2023 11:03 AM EST Images from the original note [...] AVS to make a follow up appt withher PCP. - Sophia Rajan RN 09/26/23 11:05 AM [facility]02-02-2024 Miscellaneous Notes* Discharge Planning Note - Sophia Rajan RN - 09/26/2023 11:03 AM EST Images from the original note [...] AVS to make a follow up appt withher PCP. - Sophia Rajan RN 09/26/23 11:05 AM * Plan of Care - Caryn Briceno RN - 09/26/2023 10:13 AM EST Problem: Safety Goal: Patient will be injury free during hospitalization Description: INTERVENTIONS: 1. Assess patient's risk for falls and implement fall prevention plan of care per policy 2. Provide and maintain a safe environment 3. Proper use of double Identifiers 4. Medication administration using the 5 rights 5. Hand hygiene 6. Specimens are labeled at the bedside 7. Instruct patient/ patient truck sales representative about use of safety devices 8. Include patient/ patient truck sales representative in decisions related to safety Note: Evaluation of progress towards goal: No reports of injury during shift. Safety measures in place * Plan of Care - Jc Pelayo RN - 09/25/2023 11:52 PM EST Problem: Low Risk Fall Score Description: Clifford Fall Score of 0 - 24 or indicated by [facility] Assessment Goal: Patient should be free from fall Description: Interventions: 1. [place] to environment 2. Hourly rounds addressing the [...] non-skid footwear 11. Teach patient and patient truck sales representative to maintain environment for safety and engage in all aspects of fall prevention program Outcome: Progressing Note: Evaluation of progress towards goal: Patient remained free from falls. Will continue to utilized fall prevention measures. * Discharge Planning Note - Sophia Rajan RN - 09/25/2023 1:09 PM EST DISCHARGE PLANNING NOTE Follow-up Discharge Planning Progress Note Per RN during discharge transition rounds, barriers to discharge are: Rheum cs, IVs, Temp-Art Bx Discharge Plan: Discussed DC POC today during rounds with bedside nurse. She will DC home self carewith the support of her Dtr & grandson. Prior to admission she was independent and doesn't use any DME. Reminder on her AVS to make a follow up appt with her PCP. Care Navigation will continue to follow for any discharge needs - Sophia Rajan RN 09/25/23 1:09 PM * Plan of Care - Sabas Snow RN - 09/25/2023 12:35 PM EST Problem: Pain Goal: Patient goal is pain score less than 4, able to rest, and participant in treatment plan as appropriate Description: INTERVENTIONS: 1. Encourage patient or legal truck sales representative to report early pain and [...] per policy 9. Teach patient or legal truck sales representative interventions for comforting Outcome: Progressing [...] at the bedside 7. Instruct patient/ patient truck sales representative about use of safety devices 8. Include patient/ patient truck sales representative in decisions related to safety [...] hygiene technique 7. Identify and instruct patient/patient truck sales representative in use of appropriate isolation precautionsfor identified infection/symptoms 8. Provide and discuss with patient/patient truck sales representative on educational MDRO sheet 9. Encourage and monitor nutritional status daily and consult supervisor assembly room if indicated 10. Implement neutropenic guidelines as needed 11. Review exposure to history of communicable disease and recent travel history on admission 12. Encourage annual influenza vaccine 13. Encourage pneumonia vaccine Outcome: Progressing Note: Evaluation of progress towards goal: Patient free from signs of infection. Afebrile. Continueto Monitor. 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 Complete [...] of 0 - 24 or indicated by [facility] Assessment Goal: Patient should be free from fall Description: Interventions: 1. [place] to environment 2. Hourly rounds addressing the [...] non-skid footwear 11. Teach patient and patient truck sales representative to maintain environment for safety and engage in all aspects of fall prevention program Outcome: Progressing Note: Evaluation of progress towards goal: Patient free from falls and injury. Continue to monitor. Problem: Moderate - High Risk Fall Score Description: Clifford Fall Score of =/> 25 or indicated by [facility] Assessment Goal: Patient should be free from fall Description: Interventions: 1. [place] to environment 2. Hourly rounds addressing the [...] non-skid footwear 11. Teach patient and patient truck sales representative to maintain environment for safety [...] (cane, walker) within reach 19. Request patient truck sales representative bring adaptive equipment/mobility aids from home or obtain and provide as needed 20. Consult pharmacy regarding effects of med's affecting mobility, cognition, and alternatives 21. Obtain physician order for PT if risk factors associated with mobility are present 22. Obtain physician order for OT as appropriate 23. Utilize diversional activities 24. Educate patient and patient truck sales representative how to maintain a safe environment during visitationtimes (notify nurse prior to leaving bedside) 25. Consider appropriateness of medical or non-medical office worker 26. Set up voiding schedule as appropriate (every 2 hours) Outcome: Progressing Note: Evaluation of progress towards goal: Patient free from falls and injury. Continue to monitor. * Op Note - Kristel Reid MD - 09/25/2023 7:35 AM EST Operative Note Date: September 25, 2023 Pre-op [...] days ago. She was evaluated by her fashion marketer who felt that vision loss was secondary [...] the vessel fell apart very easily. The t issue was also very inflamed and dissection was very difficult. The patient tolerated the procedurewell and was transferred to the recovery area in stable condition. Specimens: ID Type Source Tests Collected by Time 1 : LEFT TEMPORAL ARTERY BIOPSY Tissue Artery SURGICAL PATHOLOGY Kristel Reid MD 09/25/2023 0808 2 : RIGHT TEMPORAL ARTERY BIOPSY Tissue Artery SURGICAL PATHOLOGY Kristel Reid MD 09/25/2023 0808 Implants: None Complications: None Disposition: PACU - hemodynamically stable. Condition: stable [facility] * Plan of Care - Jc Pelayo RN - 09/24/2023 11:51 PM EST Problem: Low Risk Fall Score Description: Clifford Fall Score of 0 - 24 or indicated by [facility] Assessment Goal: Patient should be free from fall Description: Interventions: 1. [place] to environment 2. Hourly rounds addressing the [...] non-skid footwear 11. Teach patient and patient truck sales representative to maintain environment for safety and engage in all aspects of fall prevention program Outcome: Progressing Note: Evaluation of progress towards goal: Patient remained free from falls. Will continue to utilized fall prevention measures. * Plan of Care - Faiza Valverde RN - 09/24/2023 11:08 AM EST Problem: Pain Goal: Patient goal is pain score less than 4, able to rest, and participant in treatment plan as appropriate Description: INTERVENTIONS: 1. Encourage patient or legal truck sales representative to report early pain and [...] per policy 9. Teach patient or legal truck sales representative interventions for comforting Outcome: Progressing [...] at the bedside 7. Instruct patient/ patient truck sales representative about use of safety devices 8. Include patient/ patient truck sales representative in decisions related to safety [...] hygiene technique 7. Identify and instruct patient/patient truck sales representative in use of appropriate isolation precautionsfor identified infection/symptoms 8. Provide and discuss with patient/patient truck sales representative on educational MDRO sheet 9. Encourage and monitor nutritional status daily and consult supervisor assembly room if indicated 10. Implement neutropenic guidelines as needed 11. Review exposure to history of communicable disease and recent travel history on admission 12. Encourage annual influenza vaccine 13. Encourage pneumonia vaccine Outcome: Progressing Note: Evaluation of progress towards goal: Patient afebrile, Monitoring labs. 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 Complete learning assessment and assess knowledge base 2. Provide teaching at level of understanding 3. Provide teaching via preferred learning method(s) Outcome: Progressing Note: Evaluation of progress towards goal: POC reviewed with patient, verbalizes understanding * Discharge Planning Note - Sophia Rajan RN - 09/24/2023 10:57 AM EST DISCHARGE PLANNING NOTE Follow-up Discharge Planning Progress Note Per RN during discharge transition rounds, barriers to discharge are: Echo, temp-art Bx, IVS Discharge Plan: Discussed DC POC today during rounds with bedside nurse. Also discussed with the PtDC POC. Pt states she lives with her daughter who works but her grandson is there when her daughteris not. So someone is always there. Offered [...] - Sophia Rajan RN 09/24/23 10:57 AM * Plan of Care - Mago Moreau RN - 09/23/2023 9:58 PM EST Problem: Pain Goal: Patient goal is pain score less than 4, able to rest, and participant in treatment plan as appropriate Description: INTERVENTIONS: 1. Encourage patient or legal truck sales representative to report early pain and [...] per policy 9. Teach patient or legal truck sales representative interventions for comforting Outcome: Progressing [...] at the bedside 7. Instruct patient/ patient truck sales representative about use of safety devices 8. Include patient/ patient truck sales representative in decisions related to safety [...] hygiene technique 7. Identify and instruct patient/patient truck sales representative in use of appropriate isolation precautionsfor identified infection/symptoms 8. Provide and discuss with patient/patient truck sales representative on educational MDRO sheet 9. Encourage and monitor nutritional status daily and consult supervisor assembly room if indicated 10. Implement neutropenic guidelines as needed 11. Review exposure to history of communicable disease and recent travel history on admission 12. Encourage annual influenza vaccine 13. Encourage pneumonia vaccine Outcome: Progressing Note: Evaluation of progress towards goal: monitor for signs and symptoms of infection * Plan of Care - Sabas Snow RN - 09/23/2023 4:41 PM EST Problem: Pain Goal: Patient goal is pain score less than 4, able to rest, and participant in treatment plan as appropriate Description: INTERVENTIONS: 1. Encourage patient or legal truck sales representative to report early pain and [...] per policy 9. Teach patient or legal truck sales representative interventions for comforting Outcome: Progressing [...] at the bedside 7. Instruct patient/ patient truck sales representative about use of safety devices 8. Include patient/ patient truck sales representative in decisions related to safety [...] hygiene technique 7. Identify and instruct patient/patient truck sales representative in use of appropriate isolation precautionsfor identified infection/symptoms 8. Provide and discuss with patient/patient truck sales representative on educational MDRO sheet 9. Encourage and monitor nutritional status daily and consult supervisor assembly room if indicated 10. Implement neutropenic guidelines as needed 11. Review exposure to history of communicable disease and recent travel history on admission 12. Encourage annual influenza vaccine 13. Encourage pneumonia vaccine Outcome: Progressing Note: Evaluation of progress towards goal: Patient receiving antibiotics as ordered. Continue to monitor. 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 Complete learning assessment and assess knowledge base 2. Provide teaching at level of understanding 3. Provide teaching via preferred learning method(s) Outcome: Progressing Note: Evaluation of progress towards goal: Plan of care reviewed. Patient verbalizes understanding.Reinforcement is necessary. Continue to monitor. Problem: Discharge [...] of 0 - 24 or indicated by [facility] Assessment Goal: Patient should be free from fall Description: Interventions: 1. [place] to environment 2. Hourly rounds addressing the [...] non-skid footwear 11. Teach patient and patient truck sales representative to maintain environment for safety and engage in all aspects of fall prevention program Outcome: Progressing Note: Evaluation of progress towards goal: Patient free from falls and injury. Continue to monitor. * Discharge Planning Note - LIANE Ken - 09/23/2023 2:03 PM EST Images from the original note were [...] main level if needed. Bathroom on 1st. Patientreports support system: son and dtr. Confirmed PCP [...] to transport at time of d/c. Barriers- ophthalmol ogy consult, MRI. Services Requested: Services Requested Discharge Disposition: Home with self care Does the patient need discharge transportation arranged?: No Mobility issues discussed with transportation provider: No Initial DC Assessment Completed: Yes Patient Goals: Patient/Caregiver Goals Patient/Caregiver Goals: Home No Needs Goals: Goals <enter goal here> (pt-stated) Evaluation of progress towards goal: Home with dtr, self care - LIANE KEN 09/23/23 2:07 PM * Situational Awareness - ALANNA Rosario - 09/23/2023 12:58 PM EST Consulted for MAUREEN to rule out embolic process in setting of sudden vision loss. Discussed with neurology, recommend surface echo with bubble study prior to consideration of MAUREEN. If TTE unremarkable and continued concerns, please let us know. ALANNA Rosario 09/23/23 1300 * Plan of Care - Jc Pelayo RN - 09/23/2023 4:16 AM EST Problem: Safety Goal: Patient will be injury free during hospitalization Description: INTERVENTIONS: 1. Assess patient's risk for falls and implement fall prevention plan of care per policy 2. Provide and maintain a safe environment 3. Proper use of double Identifiers 4. Medication administration using the 5 rights 5. Hand hygiene 6. Specimens are labeled at the bedside 7. Instruct patient/ patient truck sales representative about use of safety devices 8. Include patient/ patient truck sales representative in decisions related to safety [...] hygiene technique 7. Identify and instruct patient/patient truck sales representative in use of appropriate isolation precautionsfor identified infection/symptoms 8. Provide and discuss with patient/patient truck sales representative on educational MDRO sheet 9. Encourage and monitor nutritional status daily and consult supervisor assembly room if indicated 10. Implement neutropenic guidelines as [...] be free from fall Description: Interventions: 1. [place] to environment 2. Hourly rounds addressing the [...] non-skid footwear 11. Teach patient and patient truck sales representative to maintain environment for safety and engage in all aspects of fall prevention program Outcome: Progressing Note: Evaluation of progress towards goal: Patient remained free from falls. Will continue to utilized fall prevention measures. [facility] care [facility] * Plan of Care - Caryn Briceno RN - 09/26/2023 10:13 AM EST Problem: Safety Goal: Patient will be injury free during hospitalization Description: INTERVENTIONS: 1. Assess patient's risk for falls and implement fall prevention plan of care per policy 2. Provide and maintain a safe environment 3. Proper use of double Identifiers 4. Medication administration using the 5 rights 5. Hand hygiene 6. Specimens are labeled at the bedside 7. Instruct patient/ patient truck sales representative about use of safety devices 8. Include patient/ patient truck sales representative in decisions related to safety Note: Evaluation of progress towards goal: No reports of injury during shift. Safety measures in place [facility]-01[facility] Plan of care note* Plan of Care - Jc Pelayo RN - 09/25/2023 11:52 PM EST Problem: Low Risk Fall Score Description: Clifford Fall Score of 0 - 24 or indicated by [facility] Assessment Goal: Patient should be free from fall Description: Interventions: 1. [place] to environment 2. Hourly rounds addressing the [...] non-skid footwear 11. Teach patient and patient truck sales representative to maintain environment for safety and engage in all aspects of fall prevention program Outcome: Progressing Note: Evaluation of progress towards goal: Patient remained free from falls. Will continue to utilized fall prevention measures. [phone] Progress note* Discharge Planning Note - Sophia Rajan RN - 09/25/2023 1:09 PM EST DISCHARGE PLANNING NOTE Follow-up Discharge Planning Progress Note Per RN during discharge transition rounds, barriers to discharge are: Rheum cs, IVs, Temp-Art Bx Discharge Plan: Discussed DC POC today during rounds with bedside nurse. She will DC home self carewith the support of her Dtr & grandson. Prior to admission she was independent and doesn't use any DME. Reminder on her AVS to make a follow up appt with her PCP. Care Navigation will continue to follow for any discharge needs - Sophia Rajan RN 09/25/23 1:09 PM [facility] BALALIKEA [id number] Plan of care note* Plan of Care - Sabas Snow RN - 09/25/2023 12:35 PM EST Problem: Pain Goal: Patient goal is pain score less than 4, able to rest, and participant in treatment plan as appropriate Description: INTERVENTIONS: 1. Encourage patient or legal truck sales representative to report early pain and [...] per policy 9. Teach patient or legal truck sales representative interventions for comforting Outcome: Progressing [...] at the bedside 7. Instruct patient/ patient truck sales representative about use of safety devices 8. Include patient/ patient truck sales representative in decisions related to safety [...] hygiene technique 7. Identify and instruct patient/patient truck sales representative in use of appropriate isolation precautionsfor identified infection/symptoms 8. Provide and discuss with patient/patient truck sales representative on educational MDRO sheet 9. Encourage and monitor nutritional status daily and consult supervisor assembly room if indicated 10. Implement neutropenic guidelines as needed 11. Review exposure to history of communicable disease and recent travel history on admission 12. Encourage annual influenza vaccine 13. Encourage pneumonia vaccine Outcome: Progressing Note: Evaluation of progress towards goal: Patient free from signs of infection. Afebrile. Continueto Monitor. 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 Complete [...] of 0 - 24 or indicated by [facility] Assessment Goal: Patient should be free from fall Description: Interventions: 1. [place] to environment 2. Hourly rounds addressing the [...] non-skid footwear 11. Teach patient and patient truck sales representative to maintain environment for safety and engage in all aspects of fall prevention program Outcome: Progressing Note: Evaluation of progress towards goal: Patient free from falls and injury. Continue to monitor. Problem: Moderate - High Risk Fall Score Description: Clifford Fall Score of =/> 25 or indicated by [facility] Assessment Goal: Patient should be free from fall Description: Interventions: 1. [place] to environment 2. Hourly rounds addressing the [...] non-skid footwear 11. Teach patient and patient truck sales representative to maintain environment for safety [...] (cane, walker) within reach 19. Request patient truck sales representative bring adaptive equipment/mobility aids from home or obtain and provide as needed 20. Consult pharmacy regarding effects of med's affecting mobility, cognition, and alternatives 21. Obtain physician order for PT if risk factors associated with mobility are present 22. Obtain physician order for OT as appropriate 23. Utilize diversional activities 24. Educate patient and patient truck sales representative how to maintain a safe environment during visitationtimes (notify nurse prior to leaving bedside) 25. Consider appropriateness of medical or non-medical office worker 26. Set up voiding schedule as appropriate (every 2 hours) Outcome: Progressing Note: Evaluation of progress towards goal: Patient free from falls and injury. Continue to monitor. [facility] Consult note* Kellie Shah MD - 09/25/2023 8:47 AM ESTAssociated Order(s): IP CONSULT TO RHEUMATOLOGY Images from the original note were not included. [facility] Rheumatology CONSULT NOTE DATE OF ADMISSION [...] SSA, SSB, scleroderma antibody, Tiki 1, Mejia, STRIP CATCHER, anti dsDNA, anti chromatin were negative. -No concern for RA or scleroderma given lack of clinical symptoms Discussed with attending Dr. Romero Shah PGY-5, Rheumatology CHIEF COMPLAINT: Visual loss HISTORY OF PRESENT ILLNESS: Jose David is a 78 y.o. White or female who presents with no significant past medical history presented to [facility] 09/24 for concerns of vision loss in left eye. Patient was evaluated by advanced analytics associate on 09/19/2023 due to blurry vision left eye. During the appointment she was told that her optic disc was swollen and was referred to Ophthalmology. Her vision continued to worsen and over the weekend she also all vision in left eye. To developed decreased visionin her right eye and was recommended to present to the ER for concerns of giant cell arteritis. Initially at [facility] she was given Solu-Medrol 250 mg IV 1 dose and then transferred to [facility]. [place] presenting to [place] [facility] [...] SSA, SSB, scleroderma antibody, Tiki 1, Mejia, STRIP CATCHER, anti dsDNA, anti chromatin were negative. PAST [...] JVD, supple, symmetrical, trachea midline, and thyroid notenlarged, symmetric, no tenderness/mass/nodules Lungs clear to auscultation [...] mild concentric increased wall thickness/hypertrophy. Systolic function isnormal with an ejection fraction of 60-65%. The [...] are unremarkable appearing. There is no mass effectplaced on the optic chiasm. No enhancing intracranial mass/lesion. No evidence of pachymeningeal/leptomeningeal enhancement. Normal appearance of the major arterial structures in the [place]. The paranasal sinuses are clear. [...] contour and signal the globes. There is nopathologic enhancement of the optic nerves which are otherwise symmetric in appearance. Optic nervesheaths are normal. Lacrimal apparatus is unremarkable appearing. [...] of the major arterial structures in the [place]. The paranasal sinuses are clear. [...] fossa of Rosenmuller. 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 Consider direct visualization/sampling if indicated. * Mild global parenchymal atrophy with asymmetricallyadvanced atrophy of the cerebellar vermis. This is [...] IgG 992 635 - 1,741 mg/dL Free Marvell Lt Chains 2.91 (H) 0.33 - 1.94 [...] I agree with the assessment and plan. [facility]02-[facility] Consult note* Kellie Shah MD - 09/25/2023 8:47 AM ESTAssociated Order(s): IP CONSULT TO RHEUMATOLOGY Images from the original note were not included. [facility] Rheumatology CONSULT NOTE DATE OF ADMISSION [...] SSA, SSB, scleroderma antibody, Tiki 1, Mejia, STRIP CATCHER, anti dsDNA, anti chromatin were negative. -No concern for RA or scleroderma given lack of clinical symptoms Discussed with attending Dr. Romero Shah PGY-5, Rheumatology CHIEF COMPLAINT: Visual loss HISTORY OF PRESENT ILLNESS: Jose David is a 78 y.o. White or female who presents with no significant past medical history presented to [facility] 09/24 for concerns of vision loss in left eye. Patient was evaluated by advanced analytics associate on 09/19/2023 due to blurry vision left eye. During the appointment she was told that her optic disc was swollen and was referred to Ophthalmology. Her vision continued to worsen and over the weekend she also all vision in left eye. To developed decreased visionin her right eye and was recommended to present to the ER for concerns of giant cell arteritis. Initially at [facility] she was given Solu-Medrol 250 mg IV 1 dose and then transferred to [facility]. [place] presenting to [facility] [facility] [...] SSA, SSB, scleroderma antibody, Tiki 1, Mejia, STRIP CATCHER, anti dsDNA, anti chromatin were negative. PAST [...] JVD, supple, symmetrical, trachea midline, and thyroid notenlarged, symmetric, no tenderness/mass/nodules Lungs clear to auscultation [...] mild concentric increased wall thickness/hypertrophy. Systolic function isnormal with an ejection fraction of 60-65%. The [...] are unremarkable appearing. There is no mass effectplaced on the optic chiasm. No enhancing intracranial mass/lesion. No evidence of pachymeningeal/leptomeningeal enhancement. Normal appearance of the major arterial structures in the [place]. The paranasal sinuses are clear. [...] contour and signal the globes. There is nopathologic enhancement of the optic nerves which are otherwise symmetric in appearance. Optic nervesheaths are normal. Lacrimal apparatus is unremarkable appearing. [...] of the major arterial structures in the [place]. The paranasal sinuses are clear. [...] fossa of Rosenmuller. 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 Consider direct visualization/sampling if indicated. * Mild global parenchymal atrophy with asymmetricallyadvanced atrophy of the cerebellar vermis. This is [...] IgG 992 635 - 1,741 mg/dL Free Marvell Lt Chains 2.91 (H) 0.33 - 1.94 [...] I agree with the assessment and plan. * Faisal Rascon APRN-RIVKA - 09/24/2023 10:37 AM EST Images from the original note were not included. Vascular History and Physical Examination/Consultation Note Reason for Consultation Bilateral temporal artery biopsy, concern for giant cell arteritis History and Present Illness Jose David is a 78 y.o. White or female who presents to the emergency department from her fashion marketer's office. She was being evaluated with an fashion marketer for possible giant cell arthritis. She said [...] orbit showed incidental circumscribed 9 mm observation thelevel of the right fossa of Rosenmuller, potentially [...] questions or concerns regarding management. ALANNA Guzman [facility] [place] Office/After hours: [phone] ALANNA Guzman 09/24/23 1521 * Bayron Denise - 09/23/2023 4:37 PM ESTAssociated Order(s): IP CONSULT TO SPIRITUAL CARE Summary: Spiritual Care Consult for Advance Directive Assistance Spiritual Care Consult for Advance Directive Assistance Advance Directive: Registered Mail Clerk provided patient with education on the need for advance directives and a copy of the [place] Advance Directive packet. Registered Mail Clerk assisted patient in completing the advance directives. Patient completed and signed a healthcare power of disability attorney. Patient was given the original and a copy. One copy placed in patient's chart. A grader marker is available 17/03 to offer spiritual and emotional support and may be reached through the [facility] licensed reactor operator at [phone]. * Montana Bartlett MD - 09/23/2023 12:15 PM ESTAssociated Order(s): IP CONSULT TO OPHTHALMOLOGY Date: Reason for consult: I have been asked to evaluate the eyes of this 78-year-old lady who noticed sudden onset of foggy in the left eye 4 days ago this rapidly progressed to complete loss of vision in the left eye.. She saw an advanced analytics associate who indicated to her that she [...] flashes or floaters. She denies any bitemporal achesor headaches. She denies any jaw claudication. Her [...] with elevated ESR and CRP is absolutely suggestiveof giant cell arteritis. Aggressive steroid therapy is advocated. Temporal artery biopsy is indicated. Thanks Montana Bartlett MD, FACS. * Joni Pizano MD - 09/23/2023 10:19 AM ESTAssociated Order(s): IP CONSULT TO HEMATOLOGY HEMATOLOGY ONCOLOGY CONSULT NOTE Reason for consult: Thrombocytosis History of present illness: The patient is a 78 y.o. female with no significant past medical history presented to her eye doctor on 09/19/2023 due to blurry vision in left eye, she was told her optic disc was swollen and the patient was given a referral to fashion marketer. Over the weekend patients vision in left eye continued to worsen and eventually lost all vision in left eye. Patient was seen by fashion marketer 09/22/2023 and time she would decreased vision also in her right eye. It was recommended that she go straight to the emergency department, for concern for giant cell arteritis. Initially she went to [facility] where they gave her Solu-Medrol 250 mg IV 1 dose and then transferred her to [facility]. When she arrived at [facility] she had complete vision loss in both eyes. Neurology has seen patient she was noted to have elevated platelet count 924,000, elevation of ESR 130, and CRP 13.3. Neurology has ordered orbit MRI, and brain MRI which are pending. Neurology gave differential diagnosis of bilateral transverse myelitis versus ischemic retinopathy/GCA. 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 She takes no regular medication, she [...] < 10,000, unless active bleeding transfuse Plts <20,000 VTE Prophylaxis: lovenox Code Status: Full Code Further medical management of comorbid conditions per primary team and consulting services, appreciate assistance The patient was seen and examined and all plans and orders were discussed with the attending physician on service today, Dr. Pizano Thank you for the consultation. Caitie Wilder PA-C [facility] [address] [place] [address] September 23, 2023, 10:20 AM Please note that portions of this note were generated using voice recognition Verifico dictation software. Although every effort was made to ensure the accuracy of this automated child support specialist, some errors in child support specialist may have occurred. I have personally performed a face to face evaluation of this patient independently of Ms. Wilder. I have reviewed the assessment findings and plan as documented in the note and made all necessary revisions. I have reviewed lab and imaging data independently. Management plan has been discussed withMs. Wilder. My additional findings and orders are [...] need to start aspirin Joni PIZANO M.D. [facility] Day time contact: After hours answering service: [phone] [id number] * Carlitos Caraballo MD - 09/23/2023 12:53 AM ESTAssociated Order(s): IP CONSULT TO NEUROLOGY Images from the original note were not included. [facility] Neurology General Neurology Consultation Note Consult Neurology Service: [phone] Primary Team: [facility] Chief Complaint and Reason for Consultation: [...] she was seen by an eye doctor onthat day, the patient was told that her optic disc is swollen, and the patient was given referral to eye center in [facility], on Friday and Friday, vision on the left eye worsened significantly and she lost her vision on the left eye. On Friday 09/22, patient came to [place] to see an eye doctor, whoasked her to go to the ED. patient initially went to [facility], given Solu-Medrol 250 mg IVonce, transferred to [facility] for further workup and ophthalmology evaluation. According to the patient, her right eye vision worsened significantly on Friday, and she lost her vision on both eyes. Patient had no past medical history, she has not taking any scheduled medications, patient lives with her daughter, she is driving and working. Walking with no assistive devices. Upon initial assessment in [facility], patient had complete vision loss on [...] Reportedly ESR and CRP were elevated at [facility] Imaging: CTH, head and neck CTA done at [facility], reportedly unremarkable Other Testing: None Assessment: [...] follow Carlitos Caraballo MD PGY-3, Neurology Resident [facility] Staffed with: (Dr. Byrne) This patient is being followed by the Neurology Resident service. Contact attending directly during these hours: Friday to 7:30-8:30 A.M. to Friday 12-1:00 p.m. Primary Neurology service: [phone] Consult neurology service: [phone] Resident Stroke Service: [phone] If the patient belongs to the Stroke TRAM service please contact the Stroke TRAM directly. Associated attestation - Sandy Pizano MD - 09/23/2023 3:06 PM EST Attending Attestation: I saw the patient. I performed the critical/braswell portions of the service. I was directly involved inthe management and treatment plan of the patient. [...] should continue steroid treat; also recommend bilateral temporalartery biopsy, brain MRI with chuckie and thin cuts through orbits, MAUREEN, comprehensive lab tests for hyp ercoagulation and systemic inflammatory/autoimmue disease; will follow and update Sandy Pizano MD, PhD documented in this [facility]02-01-2024 Procedure note* Op Note - Kristel Reid MD - 09/25/2023 7:35 AM EST Operative Note Date: September 25, 2023 Pre-op [...] days ago. She was evaluated by her fashion marketer who felt that vision loss was secondary [...] the vessel fell apart very easily. The t issue was also very inflamed and dissection was very difficult. The patient tolerated the procedurewell and was transferred to the recovery area in stable condition. Specimens: ID Type Source Tests Collected by Time 1 : LEFT TEMPORAL ARTERY BIOPSY Tissue Artery SURGICAL PATHOLOGY Kristel Reid MD 09/25/2023807 2 : RIGHT TEMPORAL ARTERY BIOPSY Tissue Artery SURGICAL PATHOLOGY Kristel Reid MD 09/25/2023807 Implants: None Complications: None Disposition: PACU - hemodynamically stable. Condition: stable Kristel Reid MD [facility] Attending History and physical note* Kristel Reid MD - 09/25/2023 7:30 AM EST HISTORY AND PHYSICAL INTERVAL NOTE: Jose David 1945 [id number] H&P reviewed. The patient was examined and there are no changes to the H&P. Kristel Reid MD Source Note - Debrafranca RasconREIAN-MOTORBIKE COURIER - 09/24/2023 10:37 AM EST Images from the original note were not included. Vascular History and Physical Examination/Consultation Note Reason for Consultation Bilateral temporal artery biopsy, concern for giant cell arteritis History and Present Illness Jose David is a 78 y.o. White or female who presents to the emergency department from her fashion marketer's office. She was being evaluated with an fashion marketer for possible giant cell arthritis. She said [...] orbit showed incidental circumscribed 9 mm observation thelevel of the right fossa of Rosenmuller, potentially [...] questions or concerns regarding management. ALANNA Guzman [facility] Office/After hours: [phone] ALANNA Guzman 09/24/23 1521 ALANNA Guzman 09/25/23 0730 [facility] [id number] History and physical note* Kristel Reid MD - 09/25/2023 7:30 AM EST HISTORY AND PHYSICAL INTERVAL NOTE: Jose David 1945 [id number] H&P reviewed. The patient was examined and [...] presents to the emergency department from her fashion marketer's office. She was being evaluated with an fashion marketer for possible giant cell arthritis. She said [...] orbit showed incidental circumscribed 9 mm observation thelevel of the right fossa of Rosenmuller, potentially [...] questions or concerns regarding management. ALANNA Guzman [facility] Office/After hours: [phone] ALANNA Guzman 09/24/23 1521 ALANNA Guzman 09/25/23 0730 * Nandini Walters MD - 09/23/2023 12:34 AM EST Images from the original note were not included. [facility] History and Physical 09/23/2023 Patient [...] on ophthalmology recommendation, patient saw Ophthalmology in [place] today evaluated for possible giant cell arthritis, patient stated that she hadless of left eye vision for 3 days, can not see anything out of her left eye, she had similar episode in the right eye in the past, ESR was more than 130 CRP 13 CTA of the neck irregular stenosis thehigh bilateral V2 into the greater extent V3 and proximal V4 vertebral artery patient was sent herefor further evaluation and treatment ED COURSE ED [...] active all four quadrants; no rigidity, rebound tenderness,guarding noted Extremities: Extremities normal, atraumatic, no cyanosis or pedal edema Pulses: Radial and dorsal pedis pulses present and equal bilaterally Skin: [place], warm, dry; no rashes or lesions Neurologic: [...] Electronically signed by: MD Nandini PAREDES M.D. [facility] This note was completed using a voice child support specialist system. Every effort was made to ensure accuracy. However, inadvertent computerized child support specialist errors may be present. [facility] Plan of care note * Plan of Care - Jc Pelayo RN - 09/24/2023 11:51 PM EST Problem: Low Risk Fall Score Description: Clifford Fall Score of 0 - 24 or indicated by [facility] Assessment Goal: Patient should be free from fall Description: Interventions: 1. [place] to environment 2. Hourly rounds addressing the [...] non-skid footwear 11. Teach patient and patient truck sales representative to maintain environment for safety and engage in all aspects of fall prevention program Outcome: Progressing Note: Evaluation of progress towards goal: Patient remained free from falls. Will continue to utilized fall prevention measures. [facility]01-[facility] Plan of care note* Plan of Care - Faiza Valverde RN - 09/24/2023 11:08 AM EST Problem: Pain Goal: Patient goal is pain score less than 4, able to rest, and participant in treatment plan as appropriate Description: INTERVENTIONS: 1. Encourage patient or legal truck sales representative to report early pain and [...] per policy 9. Teach patient or legal truck sales representative interventions for comforting Outcome: Progressing [...] at the bedside 7. Instruct patient/ patient truck sales representative about use of safety devices 8. Include patient/ patient truck sales representative in decisions related to safety [...] hygiene technique 7. Identify and instruct patient/patient truck sales representative in use of appropriate isolation precautionsfor identified infection/symptoms 8. Provide and discuss with patient/patient truck sales representative on educational MDRO sheet 9. Encourage and monitor nutritional status daily and consult supervisor assembly room if indicated 10. Implement neutropenic guidelines as needed 11. Review exposure to history of communicable disease and recent travel history on admission 12. Encourage annual influenza vaccine 13. Encourage pneumonia vaccine Outcome: Progressing Note: Evaluation of progress towards goal: Patient afebrile, Monitoring labs. 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 Complete learning assessment and assess knowledge base 2. Provide teaching at level of understanding 3. Provide teaching via preferred learning method(s) Outcome: Progressing Note: Evaluation of progress towards goal: POC reviewed with patient, verbalizes understanding [facility] [employer]01-31-2024 Progress note* Discharge Planning Note - Sophia Rajan RN - 09/24/2023 10:57 AM EST DISCHARGE PLANNING NOTE Follow-up Discharge Planning Progress Note Per RN during discharge transition rounds, barriers to discharge are: Echo, temp-art Bx, IVS Discharge Plan: Discussed DC POC today during rounds with bedside nurse. Also discussed with the PtDC POC. Pt states she lives with her daughter who works but her grandson is there when her daughteris not. So someone is always there. Offered [...] - Sophia Rajan RN 09/24/23 10:57 AM [facility] Center[facility] [id number] Consult note* ALANNA Guzman - 09/24/2023 10:37 AM EST Images from the original note were not included. Vascular History and Physical Examination/Consultation Note Reason for Consultation Bilateral temporal artery biopsy, concern for giant cell arteritis History and Present Illness Jose David is a 78 y.o. White or female who presents to the emergency department from her fashion marketer's office. She was being evaluated with an fashion marketer for possible giant cell arthritis. She said [...] orbit showed incidental circumscribed 9 mm observation thelevel of the right fossa of Rosenmuller, potentially [...] questions or concerns regarding management. ALANNA Guzman [facility] [place] Office/After hours: [phone] ALANNA Guzman 09/24/23 1521 [employer] Work Phone: [phone] Plan of care note* Plan of Care - Mago Moreau RN - 09/23/2023 9:58 PM EST Problem: Pain Goal: Patient goal is pain score less than 4, able to rest, and participant in treatment plan as appropriate Description: INTERVENTIONS: 1. Encourage patient or legal truck sales representative to report early pain and [...] per policy 9. Teach patient or legal truck sales representative interventions for comforting Outcome: Progressing [...] at the bedside 7. Instruct patient/ patient truck sales representative about use of safety devices 8. Include patient/ patient truck sales representative in decisions related to safety [...] hygiene technique 7. Identify and instruct patient/patient truck sales representative in use of appropriate isolation precautionsfor identified infection/symptoms 8. Provide and discuss with patient/patient truck sales representative on educational MDRO sheet 9. Encourage and monitor nutritional status daily and consult supervisor assembly room if indicated 10. Implement neutropenic guidelines as needed 11. Review exposure to history of communicable disease and recent travel history on admission 12. Encourage annual influenza vaccine 13. Encourage pneumonia vaccine Outcome: Progressing Note: Evaluation of progress towards goal: monitor for signs and symptoms of infection [facility] BALALIKEA [id number] Plan of care note* Plan of Care - Sabas Snow RN - 09/23/2023 4:41 PM EST Problem: Pain Goal: Patient goal is pain score less than 4, able to rest, and participant in treatment plan as appropriate Description: INTERVENTIONS: 1. Encourage patient or legal truck sales representative to report early pain and [...] per policy 9. Teach patient or legal truck sales representative interventions for comforting Outcome: Progressing [...] at the bedside 7. Instruct patient/ patient truck sales representative about use of safety devices 8. Include patient/ patient truck sales representative in decisions related to safety [...] hygiene technique 7. Identify and instruct patient/patient truck sales representative in use of appropriate isolation precautionsfor identified infection/symptoms 8. Provide and discuss with patient/patient truck sales representative on educational MDRO sheet 9. Encourage and monitor nutritional status daily and consult supervisor assembly room if indicated 10. Implement neutropenic guidelines as needed 11. Review exposure to history of communicable disease and recent travel history on admission 12. Encourage annual influenza vaccine 13. Encourage pneumonia vaccine Outcome: Progressing Note: Evaluation of progress towards goal: Patient receiving antibiotics as ordered. Continue to monitor. 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 Complete learning assessment and assess knowledge base 2. Provide teaching at level of understanding 3. Provide teaching via preferred learning method(s) Outcome: Progressing Note: Evaluation of progress towards goal: Plan of care reviewed. Patient verbalizes understanding.Reinforcement is necessary. Continue to monitor. Problem: Discharge [...] of 0 - 24 or indicated by [facility] Assessment Goal: Patient should be free from fall Description: Interventions: 1. [place] to environment 2. Hourly rounds addressing the [...] non-skid footwear 11. Teach patient and patient truck sales representative to maintain environment for safety and engage in all aspects of fall prevention program Outcome: Progressing Note: Evaluation of progress towards goal: Patient free from falls and injury. Continue to monitor. [facility]01-[facility] Consult note* Bayron Denise - 09/23/2023 4:37 PM ESTAssociated Order(s): IP CONSULT TO SPIRITUAL CARE Summary: Spiritual Care Consult for Advance Directive Assistance Spiritual Care Consult for Advance Directive Assistance Advance Directive: Registered Mail Clerk provided patient with education on the need for advance directives and a copy of the [place] Advance Directive packet. Registered Mail Clerk assisted patient in completing the advance directives. Patient completed and signed a healthcare power of disability attorney. Patient was given the original and a copy. One copy placed in patient's chart. A grader marker is available 17/03 to offer spiritual and emotional support and may be reached through the [facility] licensed reactor operator at [phone]. [facility]01-30-[facility] Progress note* Discharge Planning Note - LIANE Ken - 09/23/2023 2:03 PM EST Images from the original note were [...] main level if needed. Bathroom on 1st. Patientreports support system: son and dtr. Confirmed PCP [...] to transport at time of d/c. Barriers- ophthalmol ogy consult, MRI. Services Requested: Services Requested Discharge Disposition: Home with self care Does the patient need discharge transportation arranged?: No Mobility issues discussed with transportation provider: No Initial DC Assessment Completed: Yes Patient Goals: Patient/Caregiver Goals Patient/Caregiver Goals: Home No Needs Goals: Goals (pt-stated) Evaluation of progress towards goal: Home with dtr, self care - LIANE KEN 09/23/23 2:07 PM [facility] [employer] [id number] Progress note* Situational Awareness - ALANNA Rosario - 09/23/2023 12:58 PM EST Consulted for MAUREEN to rule out embolic process in setting of sudden vision loss. Discussed with neurology, recommend surface echo with bubble study prior to consideration of MAUREEN. If TTE unremarkable and continued concerns, please let us know. ALANNA Rosario 09/23/23 1300 [employer] Work Phone: [phone] Consult note* oMntana Bartlett MD - 09/23/2023 12:15 PM ESTAssociated Order(s): IP CONSULT TO OPHTHALMOLOGY Date: Reason for consult: I have been asked to evaluate the eyes of this 78-year-old lady who noticed sudden onset of foggy in the left eye 4 days ago this rapidly progressed to complete loss of vision in the left eye.. She saw an advanced analytics associate who indicated to her that she [...] flashes or floaters. She denies any bitemporal achesor headaches. She denies any jaw claudication. Her [...] with elevated ESR and CRP is absolutely suggestiveof giant cell arteritis. Aggressive steroid therapy is advocated. Temporal artery biopsy is indicated. Thanks Montana Bartlett MD, FACS. [employer] Work Phone: 1(666) 582-293801-30-2024 Consult note* Joni Pizano MD - 09/23/2023 10:19 AM ESTAssociated Order(s): IP CONSULT TO HEMATOLOGY HEMATOLOGY ONCOLOGY CONSULT NOTE Reason for consult: Thrombocytosis History of present illness: The patient is a 78 y.o. female with no significant past medical history presented to her eye doctor on 09/19/2023 due to blurry vision in left eye, she was told her optic disc was swollen and the patient was given a referral to fashion marketer. Over the weekend patients vision in left eye continued to worsen and eventually lost all vision in left eye. Patient was seen by fashion marketer 09/22/2023 and time she would decreased vision also in her right eye. It was recommended that she go straight to the emergency department, for concern for giant cell arteritis. Initially she went to [facility] where they gave her Solu-Medrol 250 mg IV 1 dose and then transferred her to [facility]. When she arrived at [facility] she had complete vision loss in both eyes. Neurology has seen patient she was noted to have elevated platelet count 924,000, elevation of ESR 130, and CRP 13.3. Neurology has ordered orbit MRI, and brain MRI which are pending. Neurology gave differential diagnosis of bilateral transverse myelitis versus ischemic retinopathy/GCA. 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 She takes no regular medication, she [...] < 10,000, unless active bleeding transfuse Plts <20,000 VTE Prophylaxis: lovenox Code Status: Full Code Further medical management of comorbid conditions per primary team and consulting services, appreciate assistance The patient was seen and examined and all plans and orders were discussed with the attending physician on service today, Dr. Pizano Thank you for the consultation. Caitie Wilder PA-C [facility] [address] [place] [address] September 23, 2023, 10:20 AM Please note that portions of this note were generated using voice recognition [employer] dictation software. Although every effort was made to ensure the accuracy of this automated child support specialist, some errors in child support specialist may have occurred. I have personally performed a face to face evaluation of this patient independently of Ms. Wilder. I have reviewed the assessment findings and plan as documented in the note and made all necessary revisions. I have reviewed lab and imaging data independently. Management plan has been discussed withMs. Wilder. My additional findings and orders are [...] need to start aspirin Joni PIZANO M.D. [facility] Day time contact: After hours answering service: [phone] [place] [address] [facility] Work Phone: [phone] Plan of care note* Plan of Care - Jc Pelayo RN - 09/23/2023 4:16 AM EST Problem: Safety Goal: Patient will be injury free during hospitalization Description: INTERVENTIONS: 1. Assess patient's risk for falls and implement fall prevention plan of care per policy 2. Provide and maintain a safe environment 3. Proper use of double Identifiers 4. Medication administration using the 5 rights 5. Hand hygiene 6. Specimens are labeled at the bedside 7. Instruct patient/ patient truck sales representative about use of safety devices 8. Include patient/ patient truck sales representative in decisions related to safety [...] hygiene technique 7. Identify and instruct patient/patient truck sales representative in use of appropriate isolation precautionsfor identified infection/symptoms 8. Provide and discuss with patient/patient truck sales representative on educational MDRO sheet 9. Encourage and monitor nutritional status daily and consult supervisor assembly room if indicated 10. Implement neutropenic guidelines as needed 11. Review exposure to history of communicable disease and recent travel history on admission 12. Encourage annual influenza vaccine 13. Encourage pneumonia vaccine Outcome: Progressing Note: Evaluation of progress towards goal: Patient has no signs and symptoms of infection. Problem: Low Risk Fall Score Description: Clifford Fall Score of 0 - 24 or indicated by [facility] Assessment Goal: Patient should be free from fall Description: Interventions: 1. [place] to environment 2. Hourly rounds addressing the [...] non-skid footwear 11. Teach patient and patient truck sales representative to maintain environment for safety and engage in all aspects of fall prevention program Outcome: Progressing Note: Evaluation of progress towards goal: Patient remained free from falls. Will continue to utilized fall prevention measures. [employer]01-30-2024 Consult note* Carlitos Caraballo MD - 09/23/2023 12:53 AM ESTAssociated Order(s): IP CONSULT TO NEUROLOGY Images from the original note were not included. [facility] Neurology General Neurology Consultation Note Consult Neurology Service: [phone] Primary Team: SAMUEL Chief Complaint and Reason [...] she was [place] doctor [place], the patient was told that her optic disc is swollen, and the patient was given referral to eye center in [facility], on Friday and Friday, vision on the left eye worsened significantly and she lost her vision on the left eye. On Friday 09/22, patient came to [place] to see an eye doctor, whoasked her to go to the ED. patient initially went to [facility], given Solu-Medrol 250 mg IVonce, transferred to [facility] for further workup and ophthalmology evaluation. According to the patient, her right eye vision worsened significantly on Friday, and she lost her vision on both eyes. Patient had no past medical history, she has not taking any scheduled medications, patient lives with her daughter, she is driving and working. Walking with no assistive devices. Upon initial assessment in [facility], patient had complete vision loss on [...] Reportedly ESR and CRP were elevated at [facility] Imaging: CTH, head and neck CTA done at [facility], reportedly unremarkable Other Testing: None Assessment: [...] follow Carlitos Caraballo MD PGY-3, Neurology Resident [facility] Staffed with: (Dr. Byrne) This patient is being followed by the Neurology Resident service. Contact attending directly during these hours: Friday to 7:30-8:30 A.M. to Friday 12-1:00 p.m. Primary Neurology service: [phone] Consult neurology service: [phone] Resident Stroke Service: [phone] If the patient belongs to the Stroke TRAM service please contact the Stroke TRAM directly. Associated attestation - Sandy Pizano MD - 09/23/2023 3:06 PM EST Attending Attestation: I saw the patient. I performed the critical/braswell portions of the service. I was directly involved inthe management and treatment plan of the patient. [...] should continue steroid treat; also recommend bilateral temporalartery biopsy, brain MRI with chuckie and thin cuts through orbits, MAUREEN, comprehensive lab tests for hyp ercoagulation and systemic inflammatory/autoimmue disease; will follow and update Sandy Pizano MD, PhD [employer] Work Phone: 1([phone]) 601-662601-30-2024 History and physical note* Nandini Walters MD - 09/23/2023 12:34 AM EST Images from the original note were not included. [facility] History and Physical 09/23/2023 [...] on ophthalmology recommendation, patient saw Ophthalmology in [place] today evaluated for possible giant cell arthritis, patient stated that she hadless of left eye vision for 3 days, can not see anything out of her left eye, she had similar episode in the right eye in the past, ESR was more than 130 CRP 13 CTA of the neck irregular stenosis thehigh bilateral V2 into the greater extent V3 and proximal V4 vertebral artery patient was sent herefor further evaluation and treatment ED COURSE ED [...] active all four quadrants; no rigidity, rebound tenderness,guarding noted Extremities: Extremities normal, atraumatic, no cyanosis or pedal edema Pulses: Radial and dorsal pedis pulses present and equal bilaterally Skin: [place], warm, dry; no rashes or lesions Neurologic: [...] Electronically signed by: MD Nandini PAREDES M.D. [facility] This note was completed using a voice child support specialist system. Every effort was made to ensure accuracy. However, inadvertent computerized child support specialist errors may be present. [facility] Diagnosis Onset Date Resolution Status GERD (gastroesophageal reflux disease) acute Hospital discharge follow-up acute Temporal arteritis acute Vision loss, bilateral acute [facility] Work Phone: Evaluation note* Diagnosis Onset Date Resolution Status GERD (gastroesophageal reflux disease) acute History of cataract extraction with lens replacement acute Hospital discharge follow-up acute Temporal arteritis acute Vision loss, bilateral acute Acute effusion of left ear a cute Eustachian tube dysfunction acute [facility] Work Phone: Evaluation noteNo assessment information available [facility] Work Phone: Evaluation note* Diagnosis Giant cell arteritis (CMS-HCC)- Primary Giant cell arteritis [facility] this encounter [facility] Diagnosis Giant cell arteritis (CMS-HCC)- Primary Giant cell arteritis [facility] Diagnosis Vision blurred- Primary Other specified visual disturbances B12 deficiency Thrombocytosis Essential thrombocythemia Vision blurred Other specified visual disturbances Temporal arteritis (CMS-HCC) Giant cell arteritis Stroke-like symptoms [facility] Diagnosis Giant cell arteritis (CMS-HCC)- Primary Giant cell arteritis [facility] Diagnosis Normocytic anemia- Primary Unspecified anemia Thrombocytosis Essential thrombocythemia Anemia, unspecified type [facility] Diagnosis Giant cell arteritis (CMS-HCC)- Primary Giant cell arteritis Stroke-like symptoms Vision blurred Other specified visual disturbances Anemia, unspecified type documented in this [facility] Normocytic anemia- Primary Unspecified anemia Thrombocytosis Essential thrombocythemia [facility] Normocytic anemia- Primary Unspecified anemia Thrombocytosis Essential thrombocythemia Anemia, unspecified type Iron deficiency Disorders of iron metabolism Giant cell arteritis (CMS-HCC) Giant cell arteritis Vision blurred Other specified visual disturbances [facility] Diagnosis Onset Date Resolution Status Admit Date Left otitis media acute Februar y 2024 2:27pm Muscle spasm acute September 2:27pm Neck pain acute October 13, 2024 2:27pm [facility] Work Phone: InstructionsNot on filedocumented in this encounter [facility] [...] Found Advance Directives No Advanced Directives Records Found Advance Directive Response Recorded Date/ Time Advance Directives No June 22, 2018 3:12pm Advance Directive Response Recorded Date/ Time Advance Directives No June 22, 2018 4:12pm Documents on File Type Date Recorded Patient Caddy Master Expl anation Durable Power of Web Analytics Developer 10/03/2023 8:14 AM Durable Power of Web Analytics Developer 09/23/2023 4:17 PM [facility] er of Web Analytics Developer Date Activated Date Inactivated Comments 09/23/2023 12:33 AM 09/26/2023 7:44 PM Healthcare Agents on File Name Relationship Healthcare Agent Relationshi p Communication Mike David Son Health Care Agent Malinda Brito Daughter First Alternate Health Care Agent Healthcare Agents on File Name Relationship Healthcare Agent Relationshi p Communication Mike David Son Health Care Agent Malinda Brito Daughter First Alternate Health Care Agent Documents on File Type Date Recorded Patient Caddy Master Expl anation Durable Power of Web Analytics Developer 09/23/2023 4:17 PM [facility] er of Web Analytics Developer Latest Code Status on File Code Status Date Activated Date Inactivated Comments Full Code 09/23/2023 12:33 AM 09/26/2023 7:44 PM Healthcare Agents on File Name Relationship Healthcare Agent Relationshi p Communication Mike David Son Health Care Agent Malinda Brito Daughter First Alternate Health Care Agent Documents on File Type Date Recorded Patient Caddy Master Expl anation Durable Power of Web Analytics Developer 09/23/2023 4:17 PM [facility] Pow er of Web Analytics Developer Latest Code Status on File Code Status [...] Brito Daughter First Alternate Health Care Agent Chief Complaint and Reason for Visit Chief [...] ear Eustachian tube dysfunction Chief Complaint MAWV Chief Complaint Admit Date MAWV April 13, 2024 10 :44am CC Adult Risk Stratification July 072023 11:03am Urinary Tract Infection / UTI June 252023 1:01pm Reason for Visit Admit Date At high risk for falls April 13, 2024 10:44am Dry skin dermatitis April 13, 2024 10 :44am GERD (gastroesophageal reflux disease) A ugust 2023 10:44am History of cataract extraction with lens replacement April 13, 2024 10:44am Medicare annual wellness visit, subseque nt April 13, 2024 10:44am Temporal arteritis April 13, 2024 10 :44am Vision loss, bilateral April 13, 2024 10:44am Chief Complaint Admit Date UA, frequancy, itchy July 16, 2024 9:59am Ear & Neck Pain October 13, 2024 2:27pm Reason for Visit Admit Date Left otitis media October 13, 2024 2:27pm Muscle spasm October 13, 2024 2:27pm Neck pain October 13, 2024 2:27pm Reason for Referral Specialty Diagnoses / Procedures Referred By Contac t Referred To Contact Diagnoses B12 deficiency Thrombocytosis Vision blurred Temporal arteritis ([facility]) Procedures Follow-up with primary care provider Bart Milian MD [address] [place] [id number] Referral ID Status Reason Start Date Expiration Date V isits Requested Visits Authorized [id number] Pending Review 09/26/2023 09/25/2024 1 1 Specialty Diagnoses / Procedures Referred By Jessica t Referred To Contact Procedures Adult diet Bart Milian MD [address] [place] [id number] Referral ID Status Reason Start Date Expiration Date V isits Requested Visits Authorized [id number] Pending Review 09/26/2023 09/25/2024 1 1 Additional Source Comments INFORMATION SOURCE (unrecogn ized section and content) DATE CREATED AUTHOR 11/18/2021 [facility] DATE CREATED AUTHOR AUTHOR'S ORGANIZ ATION 01/31/[address] [facility] DATE CREATED AUTHOR AUTHOR'S ORGANIZ ATION 04/15/2023 [facility] DATE CREATED AUTHOR AUTHOR'S ORGANIZ ATION 10/04/2023 [facility] DATE CREATED AUTHOR AUTHOR'S ORGANIZ ATION 07/24/2024 [facility] DATE CREATED AUTHOR AUTHOR'S ORGANIZ ATION 10/12/2024 [facility] DATE CREATED AUTHOR AUTHOR'S ORGANIZ ATION 11/04/2024 [facility] Care Teams (unrecognized sec tion and content) Team Status: Active Member Role Status Dates Giovanna Graf APRN [facility]-C Primary Care Provider Active Team Status: Inactive Member Role Status Dates Giovanna Graf APRN [facility] ATT[facility]-C Primary Care Provider, Attending Provider Active Start: October 16, 2023 End: October 16, 2023 Team Status: Active Member Role Status Dates Giovanna Graf APRN [facility] ATT[facility]-C Primary Care Provider, Attending Provider Active Start: October 30, 2023 Team Status: Active Member Role Status Dates Giovanna Graf APRN [facility] ATT[facility]-C Primary Care Provider Active Start: December 29, 2023 Jt Jasso MD Attending Provider Active S tart: December 29, 2023 Team Status: Inactive Member Role Status Dates Giovanna Graf APRN [facility] ATT[facility]-C Primary Care Provider, Attending Provider Active Start: December 29, 2023 End: December 29, 2023 Team Status: Active Member Role Status Dates Giovanna Graf APRN [facility] ATT[facility]-C Primary Care Provider, Attending Provider Active Start: March 05, 2024 Team Status: Inactive Member Role Status Dates Giovanna Graf APRN [facility]-C Primary Care Provider, Attending Provider Active Start: April 13, 2024 End: April 13, 2024 Team Status: Active Member Role Status Dates Giovanna Graf APRN [facility] ATTEND[facility]-C Primary Care Provider Active Start: April 302023 Jt Jasso MD Attending Provider Active S tart: April 30, 2024 Team Status: Active Member Role Status Dates Giovanna Graf APRN [facility]-C Primary Care Provider, Attending Provider Active Start: July 07, 2024 Team Status: Inactive Member Role Status Dates Giovanna Graf APRN [facility]-C Primary Care Provider, Attending Provider Active Start: July 12, 2024 End: July 12, 2024 Public Health Technician Relationship Specialty Start Date End Date Giovanna Graf APRN-[facility] ATTENDANT [address] [place] [address] PCP - General Nurse Practitioner 2/16/24 Public Health Technician Relationship Specialty Start Date End Date Giovanna Graf APRN-[facility] ATTENDANT [address] [place] [id number] PCP - General Nurse Practitioner 10/10/23 Public Health Technician Relationship Specialty Start Date End Date John Patel DO [address] [place] [address] PCP - General 01/23/17 Public Health Technician Relationship Specialty Start Date End Date John Patel DO [address] [place] [address] PCP - General 01/23/17 Public Health Technician Relationship Specialty Start Date End Date Giovanna Graf APRN-[facility] ATTENDANT [address] [place] [id number] PCP - General Nurse Practitioner 10/10/23 Public Health Technician Relationship Specialty Start Date End Date Giovanna Graf APRN-[facility] ATTENDANT [address] [place] [id number] PCP - General Nurse Practitioner 10/10/23 Team Status: Inactive Member Role Status Dates Giovanna Graf APRN [facility] ATTENDANT-C Primary Care Provider Active Start: July 162023 End: July 16, 2024 Angel Amanda DO Attending Provider Active Sta rt: July 16, 2024 End: July 16, 2024 Team Status: Active Member Role Status Dates Giovanna Graf APRN [facility]-C Primary Care Provider Active Start: September 02, 2024 Jt Jasso MD Attending Provider Active S tart: September 02, 2024 Team Status: Inactive Member Role Status Dates Giovanna Graf APRN [facility]-C Primary Care Provider, Attending Provider Active Start: October 13, 2024 End: October 13, 2024 Goals (unrecognized section and content) Goals may be documented in a n alternate sectionGoals may be documented in an alternate sectionGoals may be documented in an alternate sectionGoals may be documented in an alternate sectionGoals may be documented in an alternate section Reason for Visit (unrecogniz ed section and content) Reason Comments Giant cell arteritis Leg Pain Painful and cramp Reason Onset Date Comments Hospital Follow-up 09/29/2023 Specialty Diagnoses / Procedures Referred By Jessica ga Referred To Contact Diagnoses Vision blurred Stroke-like symptoms CVA symptoms Tono Pan MD [address] [place] [address] Referral ID Status Reason Start Date Expiration Date Visits Re quested Visits Authorized [id number] 1 1 Reason Comments Follow-up Hospital discharge f ollow [...] Transfer Provider) 0857 (Given - Provider: Caryn Briceno RN) enoxaparin (LOVENOX) syringe 40 mg 40 mg, subcutaneous, Daily, First dose on Fri09/23/23 at 1415, Look-alike/sound-alike medication - verify indication for use. 0836 (Given - Provider: Kimberly Chin RN) 0613 (OCT Hold - Provider: Automatic Transfer Provider - Reason: Patient not available)0900 (Dose Auto Held - Provider: Automatic Transfer Provider)1151 (OCT Unhold - Provider: Automatic Transfer Provider) 0855 (Given - Provider: Caryn Briceno RN) methylPREDNISolone sodium succinate (Solu-MEDROL) 1,000 mg [...] 4 grams (4000 mg) in 24 hours] 612 ([facility] Hold - Provider: Automatic Transfer Provider - Reason: Patient not available)1007 (Given - Provider: Jennifer Lawton RN)115 ([facility] Unhold - Provider: Automatic Transfer Provider) dextrose (GLUTOSE) 40 % gel 15 g 15 g, oral, As needed, low blood sugar, blood glucose less than 70 mg/dL, Starting on Fri09/23/23 at 0032, If patient conscious and taking PO. If blood glucose is not greater than 70 mg/dL after initial treatment, repeat treatment. 612 ([facility] Hold - Provider: Automatic Transfer Provider - Reason: Patient not available)115 ([facility] Unhold - Provider: Automatic Transfer Provider) dextrose 5 % (D5W) infusion 100 mL/hr, intravenous, Continuous PRN, blood glucose less than 70 mg/dL, Starting on Fri09/23/23 at 0032, Use immediately following dextrose 50% or glucagon treatment for patients who are unconscious or NPO. Contact prescriber for additional orders. If blood glucose is not greater than 70 mg/dL after initial treatment, repeat treatment. 612 ([facility] Hold - Provider: Automatic Transfer Provider - Reason: Patient not available)115 ([facility] Unhold - Provider: Automatic Transfer Provider) dextrose [...] treatment. VESICANT (RED) Warning: HYPERTONIC solution. 612 ([facility] Hold - Provider: Automatic Transfer Provider - Reason: Patient not available)115 ([facility] Unhold - Provider: Automatic Transfer Provider) fentaNYL (SUBLIMAZE) injection 50 mcg (CANCELED) 50 mcg, intravenous, Every 5 min PRN, Pain Scale 6-10, Starting on Carrie 09/25/23 at 0924, PACU (only), Up to a maximum dose of 150 mcg Look-alike/sound-alike medication - verify indication for use. 0958 (Given - Provider: Jennifer Lawton, RN)1048 (Given - Provider: Jennifer Lawton RN) gadoteridoL [...] mg/dL after initial treatment, repeat treatment. 0613 ([facility] Hold - Provider: Automatic Transfer Provider - Reason: Patient not available)1151 ([facility] Unhold - Provider: Automatic Transfer Provider) ondansetron (PF) (ZOFRAN) injection 4 mg 4 mg, intravenous, Every 8 hours PRN, nausea, vomiting, Starting on Fri09/23/23 at 0032, Administer over 2-5 minutes. 0613 ([facility] Hold - Provider: Automatic Transfer Provider - Reason: Patient not available)1151 ([facility] Unhold - Provider: Automatic Transfer Provider) sennosides-docusate sodium (SENOKOT-S) 8.6-50 mg 1 tablet 1 tablet, oral, Every 12 hours PRN, constipation, Starting on Fri09/23/23 at 0032 0613 ([facility] Hold - Provider: Automatic Transfer Provider - Reason: Patient not available)1151 ([facility] Unhold - Provider: Automatic Transfer Provider) sodium [...] use, Starting on Fri09/23/23 at 0032 0613 ([facility] Hold - Provider: Automatic Transfer Provider - Reason: Patient not available)1151 ([facility] Unhold - Provider: Automatic Transfer Provider) sodium chloride 0.9 % flush bag 25 mL, intravenous, at 100 mL/hr, Administer over 15 Minutes, As needed, line care, line care after IVPB administration, Starting on Fri09/23/23 at 0032 0613 ([facility] Hold - Provider: Automatic Transfer Provider - Reason: Patient not available)1151 ([facility] Unhold - Provider: Automatic Transfer Provider) sodium chloride 0.9 % infusion 20 mL/hr, intravenous, Continuous PRN, to maintain patency of lines, Starting on Fri09/23/23 at 0032 1008 (Restarted - Provider: Kimberly Chin RN) 0613 ([facility] Hold - Provider: Automatic Transfer Provider - Reason: Patient not available)1151 ([employer] [facility] Unhold - Provider: Automatic Transfer Provider) sodium chloride 0.9% (NS) irrigation bottle (CANCELED) As needed, Starting on Carrie 09/25/23 at 0807, Intra-op 0807 (Given - Provider: Kristel Reid MD - Comment: GIVEN TO [employer]ER[employer]) FOR RECORDS PERTAINING TO PATIENTS WHO ARE [...] BE BASED ON THE PRIMARY CLINICAL RECORDS. [employer] [facility]. provides no warranty or guarantee of the accuracy or completeness of information in this document.
[2024-11-06 09:06] LABS: Basophils Percent Auto 0.6 % (0.2-2.0); Eosinophils Absolute Auto 0.2 10^3/uL (0.0-0.7); Eosinophils Percent Auto 3.3 % (0.9-7.0); Hematocrit 36.1 % (36.0-48.0); Hemoglobin 11.9 g/dL (12.0-16.0); Lymphocytes Percent Auto 57.5 % (20.5-60.0); Mean Corpuscular Hemoglobin 31.9 pg (26.7-34.0); Mean Corpuscular Volume 96.8 fL (81.0-99.0); Mean Platelet Volume 8.9 fL (9.5-13.5); Monocytes Absolute Auto 0.5 10^3/uL (0.3-0.8); Monocytes Percent Auto 9.7 % (1.7-12.0); Neutrophils Absolute Auto 1.5 10^3/uL (1.4-6.5); Neutrophils Percent Auto 28.9 % (43.0-75.0); Platelet Count 252 10^3/uL (150-450); Red Blood Count 3.73 10^6/uL (4.20-5.40); Red Cell Distribution Width 13.4 % (11.0-15.0); White Blood Count 5.2 10^3/uL (4.0-11.0)
[2024-11-06 09:16] LABS: Erythrocyte Sedimentation Rate 2 mm/hr (<=30)
[2024-11-06 09:22] LABS: Alanine Aminotransferase 26 U/L (14-59); Albumin Globulin Ratio 1.4; Albumin Level 3.5 g/dL (3.4-5.0); Alkaline Phosphatase 64 U/L (46-116); Anion Gap 10.3; Aspartate Amino Transferase 19 U/L (15-37); BUN Creatinine Ratio 34.6; Bilirubin Total 0.6 mg/dL (0.2-1.0); Calcium 8.9 mg/dL (8.5-10.1); Carbon Dioxide 31.8 mmol/L (21.0-32.0); Chloride 107 mmol/L (98-107); Estimated GFR (African America >60 (>=60 mL/min/1.73m^2); Estimated GFR (Non-African Ame >60 (>=60 mL/min/1.73m^2); Globulin 2.5 g/dL; Glucose 90 mg/dL (74-106); Potassium 4.1 mmol/L (3.5-5.1); Sodium 145 mmol/L (136-145)
== END 2024-11-06 08:57 | disposition home or self-care (01) ==
PROVIDERS: PCP Nurse Practitioner Family; Visit Provider Internal Medicine
DX: M31.6 Other giant cell arteritis (principal)
CPT/HCPCS: 36415; 80053; 85025; 85652

== ENCOUNTER 2024-11-21 20:04 | Emergency (ER) | payer MEDICARE, SELFPAY ==
--- OUTSIDE RECORDS SUMMARY | 2024-11-21 20:14 | XMS_ITS | CCD ---
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 Repository Medications Current Medications Medication Drug [...] 23, 2024 7:38am administer into each nostril ntuetbgqmknl-flihlsmy-fydafj (MULTIVITAMIN 50 PLUS) tablet (1 source) Start: 10-06-2024 End: 10-06-2025 afvkmabcgjmc-odlcsxbi-digxno (MULTIVITAMIN 50 PLUS) tablet Take 1 tablet [...] 12:02am docusate sodium 50 mg / sennosides, half-way 8.6 mg oral tablet (1 source) Start: [...] sources) Other hyperlipidemia; Translations: [Other hyperlipidemia] Onset: 05-05-2024 Chronic Esophageal disorders (8 sources) Gastroesophageal reflux [...] for screening for other viral diseases] Onset: 05-05-2024 Episodic Mood disorders (10 sources) Mood disorders Onset: 09-23-2023 09-23-2023 Other aftercare (2 sources) skilled nursing (current) use of systemic steroids; 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 Daughter states that they were completed earlier this month at [facility]. LVM at [place] requesting results of lab be faxed to our office [facility]. Fax number and contact number left on voicemail with [facility] records. Awaiting results [facility] 36 LVM again returning daughter's call regarding Lab results. [facility] 3611-12-2024 36 Voicemail, patient's daughter, Malinda, would like a callback at [phone] to discuss lab results [facility] Telephoneon 11-12-2024 Telephone [phone] Carlyle David 1945 F Date Provider Department Center 11/12/2024 JT CROOK I [facility] No family history on file [facility] 3611-11-2024 36 LVM returning call. I do not have any recent lab results in the patient's chart. [facility] 36 Patient daughter dalia led about lab results. [facility] 11-02-2024 29 Addended by: LINDSAY TIERNEY on: 11/02/2024 10:24 AM Modules accepted: Orders [facility] 11-02-2024 36 Spoke with patient's daughter. The orders were not faxed to [facility] last week. I refaxed the standing orders and mailed hard copies to patient. [facility] 36 Spoke with patient's daughter and they stated that [facility] did not receive. I will fax again and mail hard copies to patient. [facility] 36 The patient daught called stating they would like to speak with the [place] to discuss the shot the patient receives every 14 days is not in the chart as well as lab apers are needing to be faxed over to [facility] because they have not been received. [facility] 10-28-2024 36 Printed patient labs and fax them to the fax number provided. [facility] Orders Onlyon 10-28-2024 Orders Only [id number] Carlyle David 1945 F Date Provider Department Center 10/28/2024 JT CROOK I C [facility] No family history on file [facility] 10-25-2024 36 PT daughter called i n requesting labs to be sent to john. Fax number provided is [phone]. Daughter stated that she wanted to know if she can have a standard order sent over from now on since these labs are required every three month. [facility] Telephoneon 10-25-2024 Telephone [phone] Carlyle David 1945 F Date Provider Department Center 10/25/2024 JT CROOK I [facility] No family history on file [facility] Follow-Upon 10-06-2024 Follow-Up [id number] Carlyle David 1945 F Date Provider Department Center 10/06/2024 [id number] BOUDREAUX I [facility]UM [facility] No family history on file Level of Service:94020 UT OFFICE/OUTPATIENT ESTABLISHED MOD MDM [address] [facility] Basophils Auto (Bld) [#/Vol] on 09-02-2024 Basophils (Bld) [#/Vol] Automated basoph il count 0.0-0.1 [facility] Basophils/100 WBC Auto (Bld) on 09-02-2024 Basophils/100 WBC (Bld) Automated basophil % 0. 2-2.0 [facility] Cholesterol in LDL Calc [Mas s/Vol]on 09-02-2024 Cholesterol in LDL [Mass/Vol] Cholesterol in LDL [Mass/volume] in Serum or Plasma by calculation [facility] Comment on above: <100 mg/dl [id number] 0-129 mg/dl NEAR OR ABOVE [id number] mg/dl BORDERLINE [id number] mg/dl HIGH>190 mg/dl VERY HIGH Cholesterol in VLDL Calc [Ma ss/Vol]on 09-02-2024 Cholesterol in VLDL [Mass/Vol] Cholesterol in VLDL [Mass/volume] in Serum or Plasma by calculation [facility] Eosinophils/100 WBC Auto (Bl d)on 09-02-2024 Eosinophils/100 WBC (Bld) Automated eosinophil % 0.9-7.0 [facility] Erythrocyte distribution wid th Auto (RBC) [Ratio]on 09-02-2024 Erythrocyte distribution width (RBC) [Ratio] Erythrocyte distribution width [Ratio] by Automated count 11.0-15.0 [facility] Estimated glomerular filtrat ion rate (GFR) non- Americanon 09-02-2024 GFR/1.73 sq M.predicted among non-blacks MDRD (S/P/Bld) [Vol rate/Area] Estimated glomerular filtration rate (GFR) non- >=60 mL/min/1.73 m 2 [facility] Globulin Calc (S) [Mass/Vol] on 09-02-2024 Globulin (S) [Mass/Vol] Serum globulin measurement by calculation (mass/volume) [facility] Hematocrit Auto (Bld) [Volum e fraction]on 09-02-2024 Hematocrit (Bld) [Volume fraction] Hematocrit [Volume Fraction] of Blood by Automated count 36.0-48.0 [facility] Hemoglobin [Mass/volume] in Bloodon 09-02-2024 Hemoglobin (Bld) [Mass/Vol] Hemoglobin [Mass/volume] in Blood 12.0-16.0 [facility] Iron binding capacity [Mass/ volume] in Serum or Plasmaon 09-02-2024 Iron binding capacity [Mass/Vol] Iron binding capacity [Mass/volume] in Serum or Plasma 250.0-450.0 [facility] Iron saturation [Mass Fracti on] in Serum or Plasmaon 09-02-2024 Iron saturation [Mass fraction] Iron saturation [Mass Fraction] in Serum or Plasma [facility] Laboratory - Chemistry and C hemistry - challengeon 09-02-2024 Albumin [Mass/Vol] 3.6 g/dL 3.4-5.0 [facility] ALP [Catalytic activity/Vol] 62 U/L 46-116 [facility] ALT [Catalytic activity/Vol] 25 U/L 14-59 [facility] AST [Catalytic activity/Vol] 19 U/L 15-37 [facility] Bilirubin [Mass/Vol] 0.5 mg/dL 0.2-1.0 [facility] Calcium [Mass/Vol] 8.9 mg/dL 8.5-10.1 [facility] Chloride [Moles/Vol] 107 mmol/L 98-107 [facility] Cholesterol [Mass/Vol] 315 mg/dL High <=200 [facility] Cholesterol in HDL [Mass/Vol] 99 mg/dL High 40-60 [facility] Comment on above: > or =60 mg/dl - LOW CARDIOVASCULAR RISK<40 mg/dl - HIGH CARDIOVASCULAR RISK CO2 [Moles/Vol] 32.2 mmol/L High 21.0-32.0 [facility] Cobalamin (Vitamin B12) [Mass/Vol] 1376 pg/mL Abnormal 232-1245 [facility] Comment on above: Performed at: - [address] [id number] Director: Bobby Mckeon PhD, Phone: [phone] Creatinine [Mass/Vol] 0.89 mg/dL 0.55-1.02 [facility] Ferritin [Mass/Vol] 363.0 ng/mL High 8.0-252.0 [facility] GFR/1.73 sq M.predicted MDRD (S/P/Bld) [Vol rate/Area] mL/min/{1.73_m2} >=60 mL/min/1.73 m 2 [facility] Glucose [Mass/Vol] 85 mg/dL 74-106 [facility] Iron [Mass/Vol] 121.0 ug/dL 50.0-170.0 [facility] Potassium [Moles/Vol] 4.0 mmol/L 3.5-5.1 [facility] Protein [Mass/Vol] 6.2 g/dL Low 6.4-8.2 [facility] Sodium [Moles/Vol] 144 mmol/L 136-145 [facility] Triglyceride [Mass/Vol] 86 mg/dL <=150 F [facility] Urea nitrogen [Mass/Vol] 31.0 mg/dL High 7.0-18.0 [facility] Urea nitrogen/Creatinine [Mass ratio] 34.8 mg/mg [facility] Laboratory - Hematology and Cell countson 09-02-2024 ESR (Bld) [Velocity] 3 mm/h <=30 [facility] Immature granulocytes/100 WBC (Bld) 0.0 % 0.0-0.5 [facility] Leukocytes [#/volume] correc tyrone for nucleated erythrocytes in Blood by Automated counon 09-02-2024 WBC corrected for nucl RBC Auto (Bld) [#/Vol] Leukocytes [#/volume] corrected for nucleated erythrocytes in Blood by Automated coun 4.0-11.0 [facility] Lymphocytes Auto (Bld) [#/Vo l]on 09-02-2024 Lymphocytes (Bld) [#/Vol] Lymphocytes [#/volume] in Blood by Automated count 1.2-3.8 [facility] Lymphocytes/100 WBC Auto (Bl d)on 09-02-2024 Lymphocytes/100 WBC (Bld) Lymphocytes/100 leukocytes in Blood by Automated count 20.5-60.0 [facility] MCH Auto (RBC) [Entitic mass ]on 09-02-2024 MCH (RBC) [Entitic mass] MCH [Entitic ma ss] by Automated count 26.7-34.0 [facility] MCHC Auto (RBC) [Mass/Vol]on 09-02-2024 MCHC (RBC) [Mass/Vol] MCHC [Mass/volume] by Automated count 29.9-35.2 [facility] MCV Auto (RBC) [Entitic vol] on 09-02-2024 MCV (RBC) [Entitic vol] MCV [Entitic vol ume] by Automated count 81.0-99.0 [facility] Monocytes Auto (Bld) [#/Vol] on 09-02-2024 Monocytes (Bld) [#/Vol] Automated blood monocyte count 0.3-0.8 [facility] Monocytes/100 WBC Auto (Bld) on 09-02-2024 Monocytes/100 WBC (Bld) Automated monocyte % 1. 7-12.0 [facility] Neutrophils Auto (Bld) [#/Vo l]on 09-02-2024 Neutrophils (Bld) [#/Vol] Neutrophils [#/volume] in Blood by Automated count 1.4-6.5 [facility] Neutrophils/100 WBC Auto (Bl d)on 09-02-2024 Neutrophils/100 WBC (Bld) Automated neutrophil % Low 43.0-75.0 [facility] No Panel Informationon 09-02 Eosinophils # (Auto) 0.2 10 3/uL 0.0-0.7 [facility] Immature Granulocyte # (Auto) 0.00 10 3/uL 0.00-0.03 [facility] Platelet mean volume Auto (B ld) [Entitic vol]on 09-02-2024 Platelet mean volume (Bld) [Entitic vol] Platelet mean volume [Entitic volume] in Blood by Automated count Low 9.5-13.5 [facility] Platelets Auto (Bld) [#/Vol] on 09-02-2024 Platelets (Bld) [#/Vol] Platelets [#/vol ume] in Blood by Automated count 150-450 [facility] RBC Auto (Bld) [#/Vol]on RBC (Bld) [#/Vol] Erythrocytes [#/volu me] in Blood by Automated count Low 4.20-5.40 [facility] Serum or plasma albumin/glob ulin mass ratioon 09-02-2024 Albumin/Globulin [Mass ratio] Serum or plasma albumin/globulin mass ratio [facility] Serum or plasma anion gap de terminationon 09-02-2024 Anion gap [Moles/Vol] Serum or plasma an ion gap determination [facility] Serum or plasma total choles terol/high density lipoprotein (HDL) cholesterol mass artie 09-02-2024 Cholesterol.total/Choles terol in HDL [Mass ratio] Serum or plasma total cholesterol/high density lipoprotein (HDL) cholesterol mass rat [facility] Comment on above: 3.3 - 4.4 LOW RISK4. 4 - 7.1 AVERAGE RISK7.1 - 11.0 MODERATE RISK>11.0 HIGH RISK 36on 08-13-2024 36 Patients daughter contacted office requesting patient lab orders be faxed to [facility]. Faxed orders to number on their website, . Mailed copies of labs to patient as well. Normal [facility] Laboratory - Chemistry and C hemistry - challengeon 07-16-2024 Bilirubin Ql (U) Negative [facility] Glucose (U) [Mass/Vol] Negative [facility] Ketones Ql (U) Negative [facility] pH (U) 6.5 [pH] [facility] Specific gravity (U) [Rel density] 1.000 [facility] Urobilinogen (U) [Mass/Vol] 0.2 mg/dL [facility] Laboratory - Specimen inform ationon 07-16-2024 Appearance (U) cloudy [facility] Color (U) lightyellow [facility] Laboratory - Urinalysison Leukocyte esterase Test strip Ql (U) Negative [facility] Nitrite Ql (U) Negative [facility] Protein Ql (U) Negative [facility] No Panel Informationon 07-16 Urine Occult Blood Negative [facility] Follow-Upon 05-05-2024 Follow-Up [id number] Carlyle David 1945 F Date Provider Department Center 05/05/2024 [id number] JASSO I [facility] No family history on file Level of Service:52105 UT OFFICE/OUTPATIENT ESTABLISHED LOW [facility] 20 MIN Reason for Visit and Comments: Follow-up [320201] - 1 headache a few weeks ago. Increased itching for a few months Normal [facility] Basophils Auto (Bld) [#/Vol] on 04-30-2024 Basophils (Bld) [#/Vol] Automated basoph il count 0.0-0.1 [facility] Basophils/100 WBC Auto (Bld) on 04-30-2024 Basophils/100 WBC (Bld) Automated basophil % 0. 2-2.0 [facility] Cholesterol in LDL Calc [Mas s/Vol]on 04-30-2024 Cholesterol in LDL [Mass/Vol] Cholesterol in LDL [Mass/volume] in Serum or Plasma by calculation [facility] Comment on above: <100 mg/dl [id number] 0-129 mg/dl NEAR OR ABOVE [id number] mg/dl BORDERLINE [id number] mg/dl HIGH>190 mg/dl VERY HIGH Cholesterol in VLDL Calc [Ma ss/Vol]on 04-30-2024 Cholesterol in VLDL [Mass/Vol] Cholesterol in VLDL [Mass/volume] in Serum or Plasma by calculation [facility] Eosinophils/100 WBC Auto (Bl d)on 04-30-2024 Eosinophils/100 WBC (Bld) Automated eosinophil % 0.9-7.0 [facility] Erythrocyte distribution wid th Auto (RBC) [Ratio]on 04-30-2024 Erythrocyte distribution width (RBC) [Ratio] Erythrocyte distribution width [Ratio] by Automated count 11.0-15.0 [facility] Estimated glomerular filtrat ion rate (GFR) non- Americanon 04-30-2024 GFR/1.73 sq M.predicted among non-blacks MDRD (S/P/Bld) [Vol rate/Area] Estimated glomerular filtration rate (GFR) non- >=60 [facility] Globulin Calc (S) [Mass/Vol] on 04-30-2024 Globulin (S) [Mass/Vol] Serum globulin measurement by calculation (mass/volume) [facility] Hematocrit Auto (Bld) [Volum e fraction]on 04-30-2024 Hematocrit (Bld) [Volume fraction] Hematocrit [Volume Fraction] of Blood by Automated count 36.0-48.0 [facility] Hemoglobin [Mass/volume] in Bloodon 04-30-2024 Hemoglobin (Bld) [Mass/Vol] Hemoglobin [Mass/volume] in Blood 12.0-16.0 [facility] Laboratory - Chemistry and C hemistry - challengeon 04-30-2024 Albumin [Mass/Vol] 3.3 g/dL Low 3.4-5.0 [facility] ALP [Catalytic activity/Vol] 49 U/L 46-116 [facility] ALT [Catalytic activity/Vol] 29 U/L 14-59 [facility] AST [Catalytic activity/Vol] 23 U/L 15-37 [facility] Bilirubin [Mass/Vol] 0.5 mg/dL 0.2-1.0 [facility] Calcium [Mass/Vol] 9.0 mg/dL 8.5-10.1 [facility] Chloride [Moles/Vol] 105 mmol/L 98-107 [facility] Cholesterol [Mass/Vol] 302 mg/dL High <=200 [facility] Cholesterol in HDL [Mass/Vol] 95 mg/dL High 40-60 [facility] Comment on above: > or =60 mg/dl - LOW CARDIOVASCULAR RISK<40 mg/dl - HIGH CARDIOVASCULAR RISK CO2 [Moles/Vol] 32.1 mmol/L High 21.0-32.0 [facility] Creatinine [Mass/Vol] 0.87 mg/dL 0.55-1.02 [facility] GFR/1.73 sq M.predicted MDRD (S/P/Bld) [Vol rate/Area] mL/min/{1.73_m2} >=60 [facility] Glucose [Mass/Vol] 85 mg/dL 74-106 [facility] Potassium [Moles/Vol] 3.8 mmol/L 3.5-5.1 [facility] Protein [Mass/Vol] 5.9 g/dL Low 6.4-8.2 [facility] Sodium [Moles/Vol] 143 mmol/L 136-145 [facility] Triglyceride [Mass/Vol] 87 mg/dL <=150 F [facility] Urea nitrogen [Mass/Vol] 25.0 mg/dL High 7.0-18.0 [facility] Urea nitrogen/Creatinine [Mass ratio] 28.7 mg/mg [facility] Laboratory - Hematology and Cell countson 04-30-2024 ESR (Bld) [Velocity] 4 mm/h <=30 [facility] Immature granulocytes/100 WBC (Bld) 0.2 % 0.0-0.5 [facility] Leukocytes [#/volume] correc tyrone for nucleated erythrocytes in Blood by Automated counon 04-30-2024 WBC corrected for nucl RBC Auto (Bld) [#/Vol] Leukocytes [#/volume] corrected for nucleated erythrocytes in Blood by Automated coun 4.0-11.0 [facility] Lymphocytes Auto (Bld) [#/Vo l]on 04-30-2024 Lymphocytes (Bld) [#/Vol] Lymphocytes [#/volume] in Blood by Automated count 1.2-3.8 [facility] Lymphocytes/100 WBC Auto (Bl d)on 04-30-2024 Lymphocytes/100 WBC (Bld) Lymphocytes/100 leukocytes in Blood by Automated count 20.5-60.0 [facility] MCH Auto (RBC) [Entitic mass ]on 04-30-2024 MCH (RBC) [Entitic mass] MCH [Entitic ma ss] by Automated count 26.7-34.0 [facility] MCHC Auto (RBC) [Mass/Vol]on 04-30-2024 MCHC (RBC) [Mass/Vol] MCHC [Mass/volume] by Automated count 29.9-35.2 [facility] MCV Auto (RBC) [Entitic vol] on 04-30-2024 MCV (RBC) [Entitic vol] MCV [Entitic vol ume] by Automated count 81.0-99.0 [facility] Monocytes Auto (Bld) [#/Vol] on 04-30-2024 Monocytes (Bld) [#/Vol] Automated blood monocyte count 0.3-0.8 [facility] Monocytes/100 WBC Auto (Bld) on 04-30-2024 Monocytes/100 WBC (Bld) Automated monocyte % 1. 7-12.0 [facility] Neutrophils Auto (Bld) [#/Vo l]on 04-30-2024 Neutrophils (Bld) [#/Vol] Neutrophils [#/volume] in Blood by Automated count 1.4-6.5 [facility] Neutrophils/100 WBC Auto (Bl d)on 04-30-2024 Neutrophils/100 WBC (Bld) Automated neutrophil % Low 43.0-75.0 [facility] No Panel Informationon 04-30 Eosinophils # (Auto) 0.2 10 3/uL 0.0-0.7 [facility] Immature Granulocyte # (Auto) 0.01 10 3/uL 0.00-0.03 [facility] Platelet mean volume Auto (B ld) [Entitic vol]on 04-30-2024 Platelet mean volume (Bld) [Entitic vol] Platelet mean volume [Entitic volume] in Blood by Automated count Low 9.5-13.5 [facility] Platelets Auto (Bld) [#/Vol] on 04-30-2024 Platelets (Bld) [#/Vol] Platelets [#/vol ume] in Blood by Automated count 150-450 [facility] RBC Auto (Bld) [#/Vol]on RBC (Bld) [#/Vol] Erythrocytes [#/volu me] in Blood by Automated count Low 4.20-5.40 [facility] Serum or plasma albumin/glob ulin mass ratioon 04-30-2024 Albumin/Globulin [Mass ratio] Serum or plasma albumin/globulin mass ratio [facility] Serum or plasma anion gap de terminationon 04-30-2024 Anion gap [Moles/Vol] Serum or plasma an ion gap determination [facility] Serum or plasma total choles terol/high density lipoprotein (HDL) cholesterol mass artie 04-30-2024 Cholesterol.total/Choles terol in HDL [Mass ratio] Serum or plasma total cholesterol/high density lipoprotein (HDL) cholesterol mass rat [facility] Comment on above: 3.3 - 4.4 LOW RISK4. 4 - 7.1 AVERAGE RISK7.1 - 11.0 MODERATE RISK>11.0 HIGH RISK Basophils Auto (Bld) [#/Vol] on 03-05-2024 Basophils (Bld) [#/Vol] 0.0 10 3/uL 0.0-0.1 [facility] Basophils/100 WBC Auto (Bld) on 03-05-2024 Basophils/100 WBC (Bld) 0.6 % 0.2-2.0 [facility] Eosinophils/100 WBC Auto (Bl d)on 03-05-2024 Eosinophils/100 WBC (Bld) 1.7 % 0.9-7.0 [facility] Erythrocyte distribution wid th Auto (RBC) [Ratio]on 03-05-2024 Erythrocyte distribution width (RBC) [Ratio] 13.7 % 11.0-15.0 [facility] Hematocrit Auto (Bld) [Volum e fraction]on 03-05-2024 Hematocrit (Bld) [Volume fraction] 37.7 % 36.0-48.0 [facility] Hemoglobin [Mass/volume] in Bloodon 03-05-2024 Hemoglobin (Bld) [Mass/Vol] 12.2 g/dL 12.0-16.0 [facility] Iron binding capacity [Mass/ volume] in Serum or Plasmaon 03-05-2024 Iron binding capacity [Mass/Vol] 231.0 ug/dL Low 250.0-450.0 [facility] Iron saturation [Mass Fracti on] in Serum or Plasmaon 03-05-2024 Iron saturation [Mass fraction] 44.6 % [facility] Laboratory - Chemistry and C hemistry - challengeon 03-05-2024 Ferritin [Mass/Vol] 234.0 ng/mL 8.0-252.0 [facility] Iron [Mass/Vol] 103.0 ug/dL 50.0-170.0 [facility] Laboratory - Hematology and Cell countson 03-05-2024 Immature granulocytes/100 WBC (Bld) 0.3 % 0.0-0.5 [facility] Leukocytes [#/volume] correc tyrone for nucleated erythrocytes in Blood by Automated counon 03-05-2024 WBC corrected for nucl RBC Auto (Bld) [#/Vol] 6.9 10 3/uL 4.0-11.0 [facility] Lymphocytes Auto (Bld) [#/Vo l]on 03-05-2024 Lymphocytes (Bld) [#/Vol] 3.8 10 3/uL 1.2-3.8 [facility] Lymphocytes/100 WBC Auto (Bl d)on 03-05-2024 Lymphocytes/100 WBC (Bld) 54.9 % 20.5-60.0 [facility] MCH Auto (RBC) [Entitic mass ]on 03-05-2024 MCH (RBC) [Entitic mass] 31.4 pg 26.7-34.0 [facility] MCHC Auto (RBC) [Mass/Vol]on 03-05-2024 MCHC (RBC) [Mass/Vol] 32.4 g/dL 29.9-35.2 [facility] MCV Auto (RBC) [Entitic vol] on 03-05-2024 MCV (RBC) [Entitic vol] 96.9 fL 81.0-99.0 [facility] Monocytes Auto (Bld) [#/Vol] on 03-05-2024 Monocytes (Bld) [#/Vol] 0.6 10 3/uL 0.3-0.8 [facility] Monocytes/100 WBC Auto (Bld) on 03-05-2024 Monocytes/100 WBC (Bld) 8.7 % 1.7-12.0 [facility] Neutrophils Auto (Bld) [#/Vo l]on 03-05-2024 Neutrophils (Bld) [#/Vol] 2.3 10 3/uL 1.4-6.5 [facility] Neutrophils/100 WBC Auto (Bl d)on 03-05-2024 Neutrophils/100 WBC (Bld) 33.8 % Low 43.0-75.0 [facility] No Panel Informationon 03-05 Eosinophils # (Auto) 0.1 10 3/uL 0.0-0.7 [facility] Immature Granulocyte # (Auto) 0.02 10 3/uL 0.00-0.03 [facility] Platelet mean volume Auto (B ld) [Entitic vol]on 03-05-2024 Platelet mean volume (Bld) [Entitic vol] 8.7 fL Low 9.5-13.5 [facility] Platelets Auto (Bld) [#/Vol] on 03-05-2024 Platelets (Bld) [#/Vol] 289 10 3/uL 150-450 [facility] RBC Auto (Bld) [#/Vol]on RBC (Bld) [#/Vol] 3.89 10 6/uL Low 4.20-5.40 [facility] Follow-Upon 01-28-2024 Follow-Up [id number] Carlyle David 1945 F Date Provider Department Center 01/28/2024 [id number], JT I [facility] RHEUM [facility] No family history on file Level of Service:22156 UT OFFICE/OUTPATIENT ESTABLISHED MOD MDM 30 MIN Reason for Visit and Comments: Follow-up [233237] - [facility]. Neck pain with cramping Normal [facility] Basophils Auto (Bld) [#/Vol] on 12-29-2023 Basophils (Bld) [#/Vol] 0.0 10 3/uL 0.0-0.1 [facility] Basophils/100 WBC Auto (Bld) on 12-29-2023 Basophils/100 WBC (Bld) 0.3 % 0.2-2.0 [facility] Eosinophils/100 WBC Auto (Bl d)on 12-29-2023 Eosinophils/100 WBC (Bld) 0.6 % 0.9-7.0 [facility] Erythrocyte distribution wid th Auto (RBC) [Ratio]on 12-29-2023 Erythrocyte distribution width (RBC) [Ratio] 14.8 % 11.0-15.0 [facility] Hematocrit Auto (Bld) [Volum e fraction]on 12-29-2023 Hematocrit (Bld) [Volume fraction] 39.8 % 36.0-48.0 [facility] Hemoglobin [Mass/volume] in Bloodon 12-29-2023 Hemoglobin (Bld) [Mass/Vol] 12.6 g/dL 12.0-16.0 [facility] Iron binding capacity [Mass/ volume] in Serum or Plasmaon 12-29-2023 Iron binding capacity [Mass/Vol] 241.0 ug/dL 250.0-450.0 [facility] Iron saturation [Mass Fracti on] in Serum or Plasmaon 12-29-2023 Iron saturation [Mass fraction] 51.5 % [facility] Laboratory - Chemistry and C hemistry - challengeon 12-29-2023 Iron [Mass/Vol] 124.0 ug/dL 50.0-170.0 [facility] Laboratory - Hematology and Cell countson 12-29-2023 ESR (Bld) [Velocity] 5 mm/h <=30 [facility] Immature granulocytes/100 WBC (Bld) 0.8 % 0.0-0.5 [facility] Leukocytes [#/volume] correc tyrone for nucleated erythrocytes in Blood by Automated counon 12-29-2023 WBC corrected for nucl RBC Auto (Bld) [#/Vol] 8.9 10 3/uL 4.0-11.0 [facility] Lymphocytes Auto (Bld) [#/Vo l]on 12-29-2023 Lymphocytes (Bld) [#/Vol] 4.4 10 3/uL 1.2-3.8 [facility] Lymphocytes/100 WBC Auto (Bl d)on 12-29-2023 Lymphocytes/100 WBC (Bld) 49.7 % 20.5-60.0 [facility] MCH Auto (RBC) [Entitic mass ]on 12-29-2023 MCH (RBC) [Entitic mass] 31.0 pg 26.7-34.0 [facility] MCHC Auto (RBC) [Mass/Vol]on 12-29-2023 MCHC (RBC) [Mass/Vol] 31.7 g/dL 29.9-35.2 [facility] MCV Auto (RBC) [Entitic vol] on 12-29-2023 MCV (RBC) [Entitic vol] 98.0 fL 81.0-99.0 [facility] Monocytes Auto (Bld) [#/Vol] on 12-29-2023 Monocytes (Bld) [#/Vol] 0.7 10 3/uL 0.3-0.8 [facility] Monocytes/100 WBC Auto (Bld) on 12-29-2023 Monocytes/100 WBC (Bld) 7.3 % 1.7-12.0 [facility] Neutrophils Auto (Bld) [#/Vo l]on 12-29-2023 Neutrophils (Bld) [#/Vol] 3.7 10 3/uL 1.4-6.5 [facility] Neutrophils/100 WBC Auto (Bl d)on 12-29-2023 Neutrophils/100 WBC (Bld) 41.3 % 43.0-75.0 [facility] No Panel Informationon 12-28 Eosinophils # (Auto) 0.1 10 3/uL 0.0-0.7 [facility] Immature Granulocyte # (Auto) 0.07 10 3/uL 0.00-0.03 [facility] Platelet mean volume Auto (B ld) [Entitic vol]on 12-29-2023 Platelet mean volume (Bld) [Entitic vol] 8.3 fL 9.5-13.5 [facility] Platelets Auto (Bld) [#/Vol] on 12-29-2023 Platelets (Bld) [#/Vol] 262 10 3/uL 150-450 [facility] RBC Auto (Bld) [#/Vol]on RBC (Bld) [#/Vol] 4.06 10 6/uL 4.20-5.40 [facility] 36on 12-10-2023 36 Please review notes from [facility]. Patient should be contacting [facility] for assistance on how to proceed. [facility] 36 Spoke with daughter, pt will have to pay $700 for the Actemra through insurance and does not qualify for PAP due to income, would like to know what you want to do. [facility] Telephoneon 12-10-2023 Telephone [phone] Carlyle David Kenna 1945 F Date Provider Department Center 12/10/2023 JT CROOK I UTCF RHEUM UTCF No family history on file [facility] 36on 12-04-2023 36 Spoke with patient's daughter and they will pickling machine operator tomorrow . [facility] 36 Yes, I have 2 availa ble samples of Actemra. I will contact patient and inform to pickling machine operator at [facility] location. [facility] 36 Do we have Actemra samples Lindsay for Jose. [facility] Follow-Upon 11-26-2023 Follow-Up [id number] Carlyle David M 1945 F Date Provider Department Center 11/26/2023 [id number] BOUDREAUX I UTCF RHEUM NVCF No family history on file Level of Service:73941 UT OFFICE/OUTPATIENT ESTABLISHED MOD MDM 30 MIN Reason for Visit and Comments: Follow-up [428673] - [facility] Basophils Auto (Bld) [#/Vol] on 10-30-2023 Basophils (Bld) [#/Vol] 0.0 10 3/uL 0.0-0.1 [facility] Basophils/100 WBC Auto (Bld) on 10-30-2023 Basophils/100 WBC (Bld) 0.2 % 0.2-2.0 [facility] Blood Mycobacterium tubercul osis tuberculin stimulated gamma interferon detectionon 10-30-2023 M. tuberculosis tuberculin stim IFN-g Ql (Bld) Comment . [facility] Comment on above: QuantiFERON-TB Gold [...] stim IFN-g Ql (Bld) 0.03 [IU]/mL . [facility] Blood mitogen stimulated hussain ma interferon measurement (units/volume)on 10-30-2023 Mitogen stimulated gamma interferon Qn (Bld) >10.00 [IU]/mL . [facility] Cholesterol in LDL Calc [Mas s/Vol]on 10-30-2023 Cholesterol in LDL [Mass/Vol] 161.0 mg/dL [facility] Comment on above: <100 mg/dl [id number] 0-129 mg/dl NEAR OR ABOVE [id number] mg/dl BORDERLINE [id number] mg/dl HIGH>190 mg/dl VERY HIGH Cholesterol in VLDL Calc [Ma ss/Vol]on 10-30-2023 Cholesterol in VLDL [Mass/Vol] 12.4 mg/dL [facility] Eosinophils/100 WBC Auto (Bl d)on 10-30-2023 Eosinophils/100 WBC (Bld) 0.4 % 0.9-7.0 [facility] Erythrocyte distribution wid th Auto (RBC) [Ratio]on 10-30-2023 Erythrocyte distribution width (RBC) [Ratio] 19.2 % 11.0-15.0 [facility] Estimated glomerular filtrat ion rate (GFR) non- Americanon 10-30-2023 GFR/1.73 sq M.predicted among non-blacks MDRD (S/P/Bld) [Vol rate/Area] mL/min/{1.73_m2} >=60 [facility] Globulin Calc (S) [Mass/Vol] on 10-30-2023 Globulin (S) [Mass/Vol] 3.4 g/dL [facility] Hematocrit Auto (Bld) [Volum e fraction]on 10-30-2023 Hematocrit (Bld) [Volume fraction] 34.9 % 36.0-48.0 [facility] Hemoglobin [Mass/volume] in Bloodon 10-30-2023 Hemoglobin (Bld) [Mass/Vol] 10.8 g/dL 12.0-16.0 [facility] Hepatitis C virus IgG Ab [Pr esence] in Serum or Plasma by Immunoassayon 10-30-2023 HCV IgG IA Ql Non-Reactive Non Reactive [facility] Comment on above: HCV antibody alone d oes not differentiate betweenpreviously resolved infection and active infection.Equivocal and Reactive HCV antibody results should befollowed up with an HCV RNA test to support the diagnosisof active HCV infection. Laboratory - Chemistry and C hemistry - challengeon 10-30-2023 Albumin [Mass/Vol] 2.9 g/dL 3.4-5.0 [facility] ALP [Catalytic activity/Vol] 60 U/L 46-116 [facility] ALT [Catalytic activity/Vol] 24 U/L 14-59 [facility] AST [Catalytic activity/Vol] 10 U/L 15-37 [facility] Bilirubin [Mass/Vol] 0.4 mg/dL 0.2-1.0 [facility] Calcium [Mass/Vol] 8.3 mg/dL 8.5-10.1 [facility] Chloride [Moles/Vol] 102 mmol/L 98-107 [facility] Cholesterol [Mass/Vol] 308 mg/dL <=200 [facility] Cholesterol in HDL [Mass/Vol] 135 mg/dL 40-60 [facility] Comment on above: > or =60 mg/dl - LOW CARDIOVASCULAR RISK<40 mg/dl - HIGH CARDIOVASCULAR RISK CO2 [Moles/Vol] 30.3 mmol/L 21.0-32.0 [facility] Creatinine [Mass/Vol] 0.78 mg/dL 0.55-1.02 [facility] GFR/1.73 sq M.predicted MDRD (S/P/Bld) [Vol rate/Area] mL/min/{1.73_m2} >=60 [facility] Glucose [Mass/Vol] 71 mg/dL 74-106 [facility] Potassium [Moles/Vol] 4.1 mmol/L 3.5-5.1 [facility] Protein [Mass/Vol] 6.3 g/dL 6.4-8.2 [facility] Sodium [Moles/Vol] 140 mmol/L 136-145 [facility] Triglyceride [Mass/Vol] 62 mg/dL <=150 [facility] Urea nitrogen [Mass/Vol] 23.0 mg/dL 7.0-18.0 [facility] Urea nitrogen/Creatinine [Mass ratio] 29.5 mg/mg [facility] Laboratory - Hematology and Cell countson 10-30-2023 ESR (Bld) [Velocity] 21 mm/h <=30 [facility] Immature granulocytes/100 WBC (Bld) 1.8 % 0.0-0.5 [facility] Leukocytes [#/volume] correc tyrone for nucleated erythrocytes in Blood by Automated counon 10-30-2023 WBC corrected for nucl RBC Auto (Bld) [#/Vol] 11.4 10 3/uL 4.0-11.0 [facility] Lymphocytes Auto (Bld) [#/Vo l]on 10-30-2023 Lymphocytes (Bld) [#/Vol] 3.9 10 3/uL 1.2-3.8 [facility] Lymphocytes/100 WBC Auto (Bl d)on 10-30-2023 Lymphocytes/100 WBC (Bld) 34.2 % 20.5-60.0 [facility] MCH Auto (RBC) [Entitic mass ]on 10-30-2023 MCH (RBC) [Entitic mass] 29.4 pg 26.7-34.0 [facility] MCHC Auto (RBC) [Mass/Vol]on 10-30-2023 MCHC (RBC) [Mass/Vol] 30.9 g/dL 29.9-35.2 [facility] MCV Auto (RBC) [Entitic vol] on 10-30-2023 MCV (RBC) [Entitic vol] 95.1 fL 81.0-99.0 [facility] Monocytes Auto (Bld) [#/Vol] on 10-30-2023 Monocytes (Bld) [#/Vol] 0.8 10 3/uL 0.3-0.8 [facility] Monocytes/100 WBC Auto (Bld) on 10-30-2023 Monocytes/100 WBC (Bld) 7.3 % 1.7-12.0 [facility] Mycobacterium tuberculosis s timulated gamma interferon [Interpretation] in Blood Qualon 10-30-2023 M. tuberculosis stim IFN-g Ql (Bld) [Interp] Negative Negative [facility] Comment on above: No response to M tub erculosis antigens detected.Infection with M tuberculosis is unlikely, but high riskindividuals should be considered for additional testing(ATS/IDSA/CDC Clinical Practice Guidelines, 2017). Thereference range is an Antigen minus Nil result of <0.35IU/mL.Chemiluminescence immunoassay methodologyPerformed at: [facility] [place] [address] [id number] Director: Bobby Mckeon PhD, Phone: [phone] Neutrophils Auto (Bld) [#/Vo l]on 10-30-2023 Neutrophils (Bld) [#/Vol] 6.4 10 3/uL 1.4-6.5 [facility] Neutrophils/100 WBC Auto (Bl d)on 10-30-2023 Neutrophils/100 WBC (Bld) 56.1 % 43.0-75.0 [facility] No Panel Informationon 10-29 Eosinophils # (Auto) 0.0 10 3/uL 0.0-0.7 [facility] Hepatitis B Core Total Antibody Negative Negative [facility] Comment on above: Performed at: - [facility] [address] [id number] Director: Bobby Mckeon PhD, Phone: [phone] Immature Granulocyte # (Auto) 0.20 10 3/uL 0.00-0.03 [facility] Miscellaneous Test COMMENT . [facility] Comment on above: Test Ordered: [id number] Hep Be AgHep Be Ag Negative CB Reference Range: NegativePerformed at: [facility] [place] [address] [id number] Director: Bobby Mckeon PhD, Phone: [phone] TB Test (QFT) Incubation See comment . [facility] Comment on above: Incubation performed . Reference Range: . Platelet mean volume Auto (B ld) [Entitic vol]on 10-30-2023 Platelet mean volume (Bld) [Entitic vol] 8.2 fL 9.5-13.5 [facility] Platelets Auto (Bld) [#/Vol] on 10-30-2023 Platelets (Bld) [#/Vol] 287 10 3/uL 150-450 [facility] RBC Auto (Bld) [#/Vol]on RBC (Bld) [#/Vol] 3.67 10 6/uL 4.20-5.40 [facility] Serum or plasma albumin/glob ulin mass ratioon 10-30-2023 Albumin/Globulin [Mass ratio] 0.9 {ratio} [facility] Serum or plasma anion gap de terminationon 10-30-2023 Anion gap [Moles/Vol] 11.8 mmol/L [facility] Serum or plasma total choles terol/high density lipoprotein (HDL) cholesterol mass artie 10-30-2023 Cholesterol.total/Choles terol in HDL [Mass ratio] 2.3 {ratio} [facility] Comment on above: 3.3 - 4.4 LOW RISK4. 4 - 7.1 AVERAGE RISK7.1 - 11.0 MODERATE RISK>11.0 HIGH RISK Whole blood measurement of M ycobacterium tuberculosis stimulated gamma interferon relon 10-30-2023 M. tuberculosis stim IFN-g by CD4+ CD8+ T-cells corrected for background Qn (Bld) 0.03 [IU]/mL . [facility] BASIC METABOLIC PANLon 09-26 Anion gap [Moles/Vol] 8 mmol/L Normal 5-[address] [facility] Comment on above: Performed By: #### C BCA, CMP, 1988-5, FEPR, 2276-4, 2284-8, 26924-0, 2132-9, 96942-7, 16822-9, 5130-0, 20899-7, 13728-4, 06789-5, 3357-1, 8092-9, 14774-5, 88179-5, 67664-4, 50655-8, 06608-1 #### [facility] ([id number]) [address], [address] [place] [address] Calcium [Mass/Vol] 7.9 mg/dL Low 8.5-10.5 [facility] Comment on above: Performed By: #### C BCA, CMP, 1987-12, FEPR, 2276-4, 2284-8, 78922-1, 2132-9, 49839-1, 35133-3, 5130-0, 00692-1, 97344-5, 76972-1, 3357-1, 8092-9, 30306-1, 55289-8, 50721-1, 78890-9, 26885-0 #### [facility] ([id number]) [address], [address] [place] [address] Chloride [Moles/Vol] 103 mmol/L Normal 98-109 [facility] Comment on above: Performed By: #### C BCA, CMP, 1987-12, FEPR, 2276-4, 2284-8, 03908-4, 2132-9, 65430-8, 38913-2, 5130-0, 75451-6, 64488-9, 60817-5, 3357-1, 8092-9, 67541-1, 09997-4, 26272-6, 09344-0, 70534-6 #### [facility] ([id number]) [address], [address] [place] [address] CO2 [Moles/Vol] 30 mmol/L Normal 22-32 [facility] Comment on above: Performed By: #### C BCA, CMP, 1987-12, FEPR, 2276-4, 2284-8, 13022-4, 2132-9, 65625-7, 83323-7, 5130-0, 07370-2, 60110-3, 03400-3, 3357-1, 8092-9, 17980-6, 18339-2, 30695-2, 84338-1, 79449-1 #### [facility] ([id number]) [address], [address] [place] [address] Creatinine [Mass/Vol] 0.65 mg/dL Normal 0.40-1.00 [facility] Comment on above: Result Comment: METH OD TRACEABLE TO IDMS STANDARD Performed By: #### C SHARATH, CMP, 1987-12, FEPR, 2276-4, 2284-8, 88310-3, 2132-9, 70619-3, 74035-0, 5130-0, 84830-5, 34672-0, 31651-4, 3357-1, 8092-9, 60526-8, 75884-5, 59944-6, 48768-0, 98824-9 #### [facility] ([id number]) [address] [place] [address] eGFR (CKD-EPI) NON-RACE DEPENDENT >90 Normal >59 [facility] Comment on above: Result Comment: Reported eGFR is based on the CKD-EPI 2020 equation that does not use a race coefficient. Performed By: #### C SHARATH, KELVIN, 1987-12, FEPR, 2275-4, 2284-8, 54071-0, 2132-9, 46396-4, 69941-3, 5130-0, 30502-9, 96416-9, 37993-1, 3357-1, 8092-9, 34358-8, 72280-5, 12159-6, 21063-6, 39047-7 #### [facility] ([id number]) [address] [place] [address] Glucose [Mass/Vol] 79 mg/dL Normal 65-99 [facility] Comment on above: Performed By: #### C SHARATH, CMP, 1987-12, FEPR, 2276-4, 2284-8, 44880-9, 2132-9, 92186-6, 98113-5, 5130-0, 02039-7, 26681-8, 49320-5, 3357-1, 8092-9, 59987-6, 02904-0, 48280-1, 69250-6, 91313-2 #### [facility] ([id number]) [address], [address] [place] [address] Potassium [Moles/Vol] 3.9 mmol/L Normal 3.5-5.0 [facility] Comment on above: Performed By: #### C BCA, CMP, 1987-12, FEPR, 2276-4, 2284-8, 95955-2, 2132-9, 90105-4, 05369-2, 5130-0, 94404-4, 68599-3, 57872-3, 3357-1, 8092-9, 98447-2, 64179-4, 99429-5, 03018-2, 23876-5 #### [facility] ([id number]) [address] [place] [address] Sodium [Moles/Vol] 141 mmol/L Normal 134-146 [facility] Comment on above: Performed By: #### C BCA, CMP, 1987-12, FEPR, 2275-4, 2284-8, 22557-9, 2132-9, 81487-6, 33141-3, 5130-0, 76127-6, 93954-4, 47782-7, 3357-1, 8092-9, 63068-5, 06649-4, 72293-5, 43140-5, 72875-7 #### [facility] ([id number]) [address] [place] [address] Urea nitrogen [Mass/Vol] 26 mg/dL Normal 5-27 [facility] Comment on above: Performed By: #### C BCA, CMP, 1987-12, FEPR, 227-4, 2284-8, 59200-8, 2132-9, 19313-7, 09491-3, 5130-0, 58237-9, 60319-3, 97523-0, 3357-1, 8092-9, 55464-3, 47460-6, 09287-8, 95631-2, 80409-4 #### [facility] ([id number]) [address], [address] [place] [address] Basic Metabolic Panelon Anion gap [Moles/Vol] 8 mmol/L 5 - 15 mmol/L [facility] Calcium [Mass/Vol] 7.9 mg/dL Low 8.5 - 10. 5 mg/dL [facility] Chloride [Moles/Vol] 103 mmol/L 98 - 10 9 mmol/L [facility] CO2 [Moles/Vol] 30 mmol/L 22 - 32 mmol/L [facility] Creatinine [Mass/Vol] 0.65 mg/dL 0.40 - 1.00 mg/dL [facility] Comment on above: METHOD TRACEABLE TO [facility] STANDARD eGFR (CKD-EPI)non-race dependent - PINF [facility] Comment on above: Reported eGFR is based on the CKD-EPI 2020 equation that does not use a race coefficient. Glucose [Mass/Vol] 79 mg/dL 65 - 99 mg/dL [facility] Interpretation and review of laboratory results Abnormal [facility] Potassium [Moles/Vol] 3.9 mmol/L 3.5 - 5.0 mmol/L [facility] Sodium [Moles/Vol] 141 mmol/L 134 - 146 mmol/L [facility] Urea nitrogen [Mass/Vol] 26 mg/dL 5 - 27 mg/dL [facility] CBC AND AUTO DIFFon 09-26-19 24 ABSOLUTE BASOPHIL 0.1 X10E9/L Normal 0.0-0.2 [facility] Comment on above: Performed By: #### C BCA, CMP, 1988-5, FEPR, 2276-4, 2284-8, 96909-6, 2132-9, 90434-6, 29406-8, 5130-0, 50524-7, 69149-5, 74987-7, 3357-1, 8092-9, 78944-6, 60085-3, 75356-2, 57092-8, 35561-3 #### [facility] ([id number]) [address], [address] [place] [address] ABSOLUTE NEUTROPHIL 7.1 X10E9/L High 1.5-6.6 [facility] Comment on above: Performed By: #### C SHARATH, CMP, 1987-12, FEPR, 2276-4, 2284-8, 96810-1, 2132-9, 19908-0, 92307-5, 5130-0, 50261-3, 00675-8, 29300-5, 3357-1, 8092-9, 17633-3, 33230-6, 44392-9, 72990-2, 32624-8 #### [facility] ([id number]) [address], [address] [place] [address] Basophils/100 WBC (Bld) 0.8 % Normal [facility] Comment on above: Performed By: #### C SHARATH, CMP, 1987-12, FEPR, 2275-, 2283-8, 39726-2, 2132-9, 02226-1, 61536-4, 5130-0, 75238-2, 83569-1, 07682-5, 3357-1, 8092-9, 12943-2, 06476-0, 72118-8, 51879-4, 75374-1 #### [facility] ([id number]) [address], [address] [place] [address] Eosinophils (Bld) [#/Vol] 0.0 10*3/uL Normal 0.0-0.4 [facility] Comment on above: Performed By: #### C BCA, CMP, 1987-12, FEPR, 2275-4, 2284-8, 99823-8, 2132-9, 15663-6, 30646-9, 5130-0, 68451-5, 68784-7, 25247-7, 3357-1, 8092-9, 28628-3, 89480-5, 94923-9, 82496-6, 84272-1 #### [facility] ([id number]) [address], [address] [place] [address] Eosinophils/100 WBC (Bld) 0.0 % Normal [facility] Comment on above: Performed By: #### C SHARATH, CMP, 1987-12, FEPR, 2276-4, 2284-8, 04147-2, 2132-9, 63755-9, 08377-0, 5130-0, 84608-2, 15881-7, 10971-7, 3357-1, 8092-9, 67929-4, 34993-2, 99967-5, 76515-0, 41542-7 #### [facility] ([id number]) [address] [place] [address] Erythrocyte distribution width (RBC) [Ratio] 14.4 % Normal 11.5-15.0 [facility] Comment on above: Performed By: #### C SHARATH, CMP, 1987-12, FEPR, 2275-4, 2284-8, 31586-2, 2132-9, 43436-2, 68312-3, 5130-0, 70772-0, 21546-1, 98430-0, 3357-1, 8092-9, 75908-2, 28742-0, 91853-9, 71046-1, 19660-0 #### [facility] ([id number]) [address], [address] [place] [address] Hematocrit (Bld) [Volume fraction] 24.8 % Low 35-47 [facility] Comment on above: Performed By: #### C BCA, CMP, 1987-12, FEPR, 227-4, 2284-8, 47075-2, 2132-9, 80875-6, 96629-5, 5130-0, 17366-8, 12613-5, 06852-5, 3357-1, 8092-9, 29025-8, 40684-3, 81970-6, 36074-6, 44233-5 #### [facility] ([id number]) [address], [address] [place] [address] Hemoglobin (Bld) [Mass/Vol] 8.2 g/dL Low 11.7-15.5 [facility] Comment on above: Performed By: #### C BCA, CMP, 1987-12, FEPR, 227-4, 228-8, 20535-1, 213-9, 46202-4, 95332-8, 5130-0, 76175-5, 65962-9, 79333-7, 3357-1, 8092-9, 57566-8, 71912-3, 03902-3, 77410-3, 45561-8 #### [facility] ([id number]) [address], [address] [place] [address] Lymphocytes (Bld) [#/Vol] 2.4 10*3/uL Normal 1.0-3.5 [facility] Comment on above: Performed By: #### C BCA, CMP, 1987-12, FEPR, 2275-, 2283-8, 99119-4, 213-9, 16073-7, 14052-3, 5130-0, 02431-2, 04934-5, 78469-6, 3357-1, 8092-9, 72599-0, 99591-1, 48311-8, 96075-6, 19558-0 #### [facility] ([id number]) [address], [address] [place] [address] Lymphocytes/100 WBC (Bld) 22.6 % Normal [facility] Comment on above: Performed By: #### C BCA, CMP, 1987-12, FEPR, 2275-4, 2283-8, 53504-7, 2132-9, 33370-9, 47404-6, 5130-0, 46767-0, 59269-3, 27226-0, 3357-1, 8092-9, 04652-4, 29630-4, 84929-7, 62924-1, 98541-4 #### [facility] ([id number]) [address], [address] [place] [address] MCH (RBC) [Entitic mass] 28.5 pg Normal 27-34 [facility] Comment on above: Performed By: #### C BCA, CMP, 1987-12, FEPR, 227-4, 2284-8, 45585-8, 2132-9, 34032-0, 41560-5, 5130-0, 69272-7, 19406-5, 67305-9, 3357-1, 8092-9, 61317-3, 47828-0, 78235-7, 58064-9, 00210-1 #### [facility] ([id number]) [address], [address] [place] [address] MCHC (RBC) [Mass/Vol] 33.1 g/dL Normal 32-36 [facility] Comment on above: Performed By: #### C BCA, CMP, 1987-12, FEPR, 227-4, 2284-8, 29810-4, 2132-9, 27460-4, 33512-8, 5130-0, 10688-7, 75313-2, 41124-9, 3357-1, 8092-9, 45932-2, 79753-1, 17044-9, 50963-7, 85228-6 #### [facility] ([id number]) [address], [address] [place] [address] MCV (RBC) [Entitic vol] 86 fL Normal 80-100 [facility] Comment on above: Performed By: #### C BCA, CMP, 1987-12, FEPR, 2276-4, 2284-8, 02961-0, 2132-9, 61402-7, 27551-7, 5130-0, 06915-5, 25007-8, 36744-8, 3357-1, 8092-9, 65797-2, 96960-5, 14523-6, 88928-0, 63918-0 #### [facility] ([id number]) [address], [address] [place] [address] Monocytes (Bld) [#/Vol] 1.0 10*3/uL High 0-0.9 [facility] Comment on above: Performed By: #### C BCA, CMP, 1987-12, FEPR, 227-4, 2284-8, 59852-7, 2132-9, 35755-3, 10647-6, 5130-0, 55131-6, 61140-0, 41047-5, 3357-1, 8092-9, 72285-6, 22953-7, 47109-0, 94331-5, 94064-6 #### [facility] ([id number]) [address] [place] [address] Monocytes/100 WBC (Bld) 9.0 % Normal [facility] Comment on above: Performed By: #### C BCA, CMP, 1987-12, FEPR, 2275-4, 4-8, 15496-5, 2132-9, 84162-9, 90615-5, 5130-0, 81172-8, 88595-0, 64344-3, 3357-1, 8092-9, 45513-4, 67410-3, 51301-2, 56983-6, 75603-8 #### [facility] ([id number]) [address], [address] [place] [address] Neutrophils/100 WBC (Bld) 67.6 % Normal [facility] Comment on above: Performed By: #### C BCA, CMP, 1987-12, FEPR, 2276-4, 2284-8, 41074-3, 2132-9, 38578-7, 14806-5, 5130-0, 64035-5, 75369-4, 59223-7, 3357-1, 8092-9, 24578-1, 87546-5, 19112-8, 30142-4, 44816-0 #### [facility] ([id number]) [address], [address] [place] [address] Platelet mean volume (Bld) [Entitic vol] 6.4 fL Low 7-12 [facility] Comment on above: Performed By: #### C SHARATH, CMP, 1987-12, FEPR, 2275-4, 2283-8, 03703-9, 2132-9, 98724-8, 53450-5, 5130-0, 63228-3, 66530-1, 74956-4, 3357-1, 8092-9, 74873-0, 37903-7, 90799-1, 29219-6, 35723-8 #### [facility] ([id number]) [address], [address] [place] [address] Platelets (Bld) [#/Vol] 686 10*3/uL High 150-450 [facility] Comment on above: Performed By: #### C SHARATH, CMP, 1987-12, FEPR, 2275-, 2283-8, 55485-4, 2131-9, 84600-9, 45918-4, 5130-0, 67034-8, 69745-6, 61503-4, 3357-1, 8092-9, 02459-1, 27643-2, 64354-0, 38631-1, 81471-3 #### [facility] ([id number]) [address], [address] [place] [address] RBC COUNT 2.88 X10E12/L Low 3.80-5.20 [facility] Comment on above: Performed By: #### C SHARATH, CMP, 1987-12, FEPR, 2275-4, 2284-8, 54473-6, 2132-9, 69215-1, 88587-1, 5130-0, 63392-8, 80165-2, 05262-7, 3357-1, 8092-9, 26175-0, 26140-8, 00156-4, 74504-8, 09101-0 #### [facility] ([id number]) [address] [place] [address], [address] [place] [address] WBC (Bld) [#/Vol] 10.5 10*3/uL Normal 4.0-11.0 [facility] Comment on above: Performed By: #### C BCA, CMP, 1987-5, FEPR, 2276-4, 2284-8, 18600-1, 2132-9, 62897-6, 00816-4, 5130-0, 39441-0, 50950-4, 64508-1, 3357-1, 8092-9, 70898-8, 69383-9, 16687-4, 96017-0, 62918-3 #### [facility] ([id number]) [address] [place] [address], [address] [place] [address] CBC auto differentialon Basophils (Bld) [#/Vol] 0.1 10*3/uL [facility] Basophils/100 WBC (Bld) 0.8 % [facility] Eosinophils (Bld) [#/Vol] 0.0 10*3/uL [facility] Eosinophils/100 WBC (Bld) 0.0 % [facility] Erythrocyte distribution width (RBC) [Ratio] 14.4 % 11.5 - 15.0 % [facility] Hematocrit (Bld) [Volume fraction] 24.8 % Low 35 - 47 % [facility] Hemoglobin (Bld) [Mass/Vol] 8.2 g/dL Low 11.7 - 15.5 g/dL [facility] Interpretation and review of laboratory results Abnormal [facility] Lymphocytes (Bld) [#/Vol] 2.4 10*3/uL [facility] Lymphocytes/100 WBC (Bld) 22.6 % [facility] MCH (RBC) [Entitic mass] 28.5 pg 27 - 34 pg [facility] MCHC (RBC) [Mass/Vol] 33.1 g/dL 32 - 3 6 g/dL [facility] MCV (RBC) [Entitic vol] 86 fL 80 - 100 fL [facility] Monocytes (Bld) [#/Vol] 1.0 10*3/uL High [facility] Monocytes/100 WBC (Bld) 9.0 % [facility] Neutrophils (Bld) [#/Vol] 7.1 10*3/uL High [facility] Neutrophils/100 WBC (Bld) 67.6 % [facility] Platelet mean volume (Bld) [Entitic vol] 6.4 fL Low 7 - 12 fL [facility] Platelets (Bld) [#/Vol] 686 10*3/uL High [facility] RBC (Bld) [#/Vol] 2.88 10*6/uL Low [facility] WBC corrected for nucl RBC Auto (Bld) [#/Vol] 10.5 [facility] Clinical Pathology Blood Sme ar Review Clinicalon 09-26-2023 Pathologist review Pathologist comment (Bld) [Interp] NOTE [facility] Comment on above: [facility] [address] [place] [address] Clinical Pathology Report Patient Name:JOSE DAVID:1945 (Age: 78)Gender:FTaken:4Reported:4Physician(s):Olga Pan M.D. ([phone])Copy To: Rec. #:[id number]: #[id number] Final Pathologic Diagnosis Peripheral blood smear: Neutrophilic [...] correlation is recommended. Report Electronically Signed Out 09/26/2023Og Martinez M.D. Interpretation performed at [facility], [address] [place] [address], License number: [id number]. Clinical History R29.9. BLOOD SMEAR EVALUATION CBC (09/23/2023 0818): WBC = 12.1 X10E9/L; HGB = 9.1 g/dL; HCT = 27.8%; MCV = 85 fL; PLT = 924 X10E9/L OTHER LAB DATA: Noncontributory. BLOOD SMEAR: Leukocytes: Neutrophilic leukocytosis with cytotoxic changes and lymphocytopenia. Erythrocytes: Moderate normocytic normochromic anemia. Platelets: Thrombocytosis. Specimen(s) Received Blood Smear Review Fee Codes(s): 1; 65373 JAK2 V617F mutationon 2023 JAK2 gene p.Vas517Cce [facility] Ql (Bld/Tiss) SEE COMMENTS 09/26/2023 10:21 AM [facility] Comment on above: NOTE Test Result Flag Unit RefValue ----- JAK2 V617F Mutation Detection, B JAK2 Result see interpretation JAK2 V617F Mutation Detection, B See Note Peripheral blood, JAK2 V617F mutation analysis: Negative for JAK2 V617F. A negative [id number] test result does not exclude the possibility [...] been determined at 0.06% (see [facility] Interpretive Handbook for method details). This test was developed and its performance characteristics determined by [facility] in a manner consistent with CLIA requirements. This test has not been cleared or approved by the U.S. Food and Drug Administration. Test Performed by: [place] [address] Marshmallow Runner: Thierry Duran M.D. Ph.D.; CLIA# [id number] JAK2 gene p.Pbc214Xle [facility] Ql (Bld/Tiss)on 09-26-2023 [facility] Pathologist review Pathologi st comment (Bld) [Interp]on 09-26-2023 [facility] Surgical Pathologyon 024 [facility] [employer] [facility] [address] [place] [address] Surgical Pathology Consultation Patient Name:JOSE DAVID:1945 (Age: 78)Gender:FTaken:09/25/19 24Reported:4Phys ician(s):Kristel Reid MD ([phone])Copy To: Rec. #:[id number]: #[id number] Final Pathologic Diagnosis 1. Left temporal artery [...] correlation is suggested. Report Electronically Signed Out [facility]/09/26/2023José Luis Pederson MD Interpretation performed at [facility], [address] [place] [address], [place] [address], License number: [id number]. Clinical History Temporal arteries. Gross Description 1. Received in formalin labeled FRANKIE, left temporal artery biopsy is a segment of vasculature, 2 x 0.3 cm. The specimen is sectioned to reveal a pinpoint lumen. Are 3 segments of vasculature ranging from 0.5 cm to 1.2 cm in length by 0.2 cm in diameter. The specimen is submitted entirely in a single cassette. (1,ns,[id number], m1) . 2. Received in formalin labeled FRANKIE, right temporal artery biopsy are 3 segments of vasculature ranging from 0.5 cm to 1.2 cm in length by 0.2 cm in diameter. The segments are sectioned to reveal pinpoint lumens. The specimen are submitted entirely in cassettes A-B. (2,ns,[id number], m1) . /4RG Specimen(s) Received 1: Left temporal artery biopsy 2: Right temporal artery biopsy Fee Codes(s): 1; 77361, 13903 2; 46126, 47472 [facility] BCR/ABL by PCR w/ Reflexon 0 09-25-2023 Narrative diagnostic report [facility] Yaw (Bld/Tiss) [Interp] SEE COMMENTS 09/25/2023 04:24 PM [facility] Comment on above: NOTE Test Result Flag Unit RefValue ----- BCR/ABL1 Reflex, Qual/Quant Specimen Type EDTA WHOLE BLOOD BCR/ABL1 Reflex Result see interpretation Interpretation See Note Peripheral blood, BCR/ABL1 mRNA analysis, qualitative: Negative. No BCR/ABL1 mRNA transcripts were detected. Method summary: The presence or absence of BCR/ABL1 mRNA transcripts was evaluated using a qualitative, reverse supervisor plasma PCR-based assay. The assay detects nearly all published and theoretical BCR/ABL1 fusion forms including the common e13/e14-a2 (p210) and e1-a2 (p190) transcripts, as well as other rarer variants (e.g. e19-a2 (p230), e13/e14-a3, e1-a3, etc.). The limit of detection for this assay is 0.1%. Please contact the lab at [phone] with questions or if additional testing is required. See [facility] [employer] Test Catalog for additional method details. Signing Pathologist: Ammon Titus M.D. (Jane), Ph.D. ADDITIONAL INFORMATION This test was developed and its performance characteristics determined by [facility] in a manner consistent with CLIA requirements. This test has not been cleared or approved by the U.S. Food and Drug Administration. Test Performed by: [place] [address] Marshmallow Runner: Thierry Duran M.D. Ph.D.; CLIA# [id number] Narrative diagnostic report [employer] [facility] (Bld/Tiss) [Interp]on 09-25-2023 [facility] Surgical Pathologyon 024 Surgical Pathology Normal [facility] Comment on above: Result Comment: [facility] [address] [place] [address] Surgical Pathology Consultation ADDENDUM UT Patient Name:JOSE DAVID:1945 (Age: 78)Gender:FTaken:4Reported:09/26/2023hysician(s):Kristel Reid MD ([phone])Copy To: Rec. #:[id number]: #[id number] Final Pathologic Diagnosis 1. Left temporal artery [...] Signed Out wak/09/26/2023José Luis Pederson MD Addendum (PHS) Date Reported: 09/29/2023 In both parts of the specimen, and elastic special stain (with appropriate controls) demonstrates fragmentation and loss of the internal elastic lamina. Electronically Signed Out José Luis Pederson MD Interpretation performed at [facility], [address] [place] [address], License number: [id number]. Clinical History Temporal arteries. Gross Description 1. Received in formalin labeled HARLAN, left temporal artery biopsy is a segment of vasculature, 2 x 0.3 cm. The specimen is sectioned to reveal a pinpoint lumen. Are 3 segments of vasculature ranging from 0.5 cm to 1.2 cm in length by 0.2 cm in diameter. The specimen is submitted entirely in a single cassette. (1,ns,[id number], m1) . 2. Received in formalin labeled FRANKIE, right temporal artery biopsy are 3 segments of vasculature ranging from 0.5 cm to 1.2 cm in length by 0.2 cm in diameter. The segments are sectioned to reveal pinpoint lumens. The specimen are submitted entirely in cassettes A-B. (2,ns,[id number], m1) /09/25/2023G Specimen(s) Received 1: Left temporal artery biopsy 2: Right temporal artery biopsy Fee Codes(s): 1; 56502, 14672 2; 40962, 10176 dRVVT/dRVVT.excess phospholi pid Coag (PPP) [Ratio]on 09-25-2023 dRVVT excess phospholipid Coag Ql (PPP) Negative [facility] ANCAon 09-24-2023 Neutrophil cytoplasmic Ab IF Ql (S) See Below [facility] Comment on above: NOTE TEST [...] See below Reviewed by Arun Tucker, Ph.D D([facility]) This test is used as an aid in diagnosis of patients with autoimmune vasculitidies. The final interpretation should be done in conjunction with ANCA test results and clinical correlation. Test Performed By: [facility] [employer] [address] [place] [address] Track Production Engineer: Meño Hernandez III, M.D. CLIA #[id number]^ BASIC METABOLIC PANLon 09-24 Anion gap [Moles/Vol] 10 mmol/L Normal 5-15 [facility] Comment on above: Performed By: #### C BCA, CMP, 1988-5, FEPR, 2276-4, 2284-8, 91536-2, 2132-9, 16095-0, 53147-7, 5130-0, 06370-4, 37030-5, 50209-6, 3357-1, 8092-9, 42848-2, 14880-3, 05332-2, 85953-3, 76073-0 #### [facility] ([id number]) [address], [address] [place] [address] Calcium [Mass/Vol] 8.5 mg/dL Normal 8.5-10.5 [facility] Comment on above: Performed By: #### C BCA, CMP, 1987-12, FEPR, 2276-4, 2284-8, 09113-3, 2132-9, 96363-2, 54119-5, 5130-0, 71697-9, 54040-3, 45104-2, 3357-1, 8092-9, 46824-7, 24999-5, 39116-6, 88176-4, 90535-5 #### [facility] ([id number]) [address], [address] [place] [address] Chloride [Moles/Vol] 101 mmol/L Normal 98-109 [facility] Comment on above: Performed By: #### C BCA, CMP, 1987-12, FEPR, 2276-4, 2284-8, 30158-7, 2132-9, 20138-2, 31996-5, 5130-0, 66118-4, 49368-6, 25092-8, 3357-1, 8092-9, 63386-8, 10115-1, 31394-6, 34559-1, 71114-9 #### [facility] ([id number]) [address], [address] [place] [address] CO2 [Moles/Vol] 29 mmol/L Normal 22-32 [facility] Comment on above: Performed By: #### C BCA, CMP, 1987-12, FEPR, 2276-4, 2284-8, 78746-8, 2132-9, 59379-4, 69033-2, 5130-0, 09106-3, 74408-4, 62308-5, 3357-1, 8092-9, 51289-9, 84779-5, 65319-8, 79345-6, 96172-0 #### [facility] ([id number]) [address] [facility], [address] [place] [address] Creatinine [Mass/Vol] 0.61 mg/dL Normal 0.40-1.00 [facility] Comment on above: Result Comment: METH OD TRACEABLE TO IDMS STANDARD Performed By: #### C SHARATH, CMP, 1987-12, FEPR, 2276-4, 2284-8, 60849-2, 2131-9, 03048-1, 49453-2, 5130-0, 60374-9, 80336-3, 60653-7, 3357-1, 8092-9, 92717-3, 71575-8, 71011-2, 41095-8, 42282-1 #### [facility] ([id number]) [address] [facility], [address] [place] [address] eGFR (CKD-EPI) NON-RACE DEPENDENT >90 Normal >59 [facility] Comment on above: Result Comment: Reported eGFR is based on the CKD-EPI 2020 equation that does not use a race coefficient. Performed By: #### C BCA, CMP, 1987-12, FEPR, 2276-4, 2284-8, 40589-4, 2131-9, 82668-9, 49671-6, 5130-0, 12470-2, 09552-7, 09433-7, 3357-1, 8092-9, 57599-1, 31908-9, 55062-1, 50336-7, 67850-5 #### [facility] ([id number]) [address] [facility], [address] [place] [address] Glucose [Mass/Vol] 98 mg/dL Normal 65-99 [facility] Comment on above: Performed By: #### C BCA, CMP, 1987-12, FEPR, 2276-4, 2284-8, 14634-0, 2132-9, 24054-9, 18143-1, 5130-0, 79268-8, 19017-4, 86053-0, 3357-1, 8092-9, 79542-6, 82106-6, 49498-3, 83675-9, 27348-0 #### [facility] ([id number]) [address], [address] [place] [address] Potassium [Moles/Vol] 3.5 mmol/L Normal 3.5-5.0 [facility] Comment on above: Performed By: #### C BCA, CMP, 1987-12, FEPR, 2276-4, 2284-8, 33120-7, 2132-9, 98059-1, 10361-7, 5130-0, 24641-8, 52336-9, 39107-6, 3357-1, 8092-9, 81794-7, 02019-5, 65327-2, 66295-4, 00106-0 #### [facility] ([id number]) [address], [address] [place] [address] Sodium [Moles/Vol] 140 mmol/L Normal 134-146 [facility] Comment on above: Performed By: #### C BCA, CMP, 1987-12, FEPR, 227-4, 2284-8, 27060-7, 2132-9, 68771-0, 40104-6, 5130-0, 72789-7, 46083-0, 82065-6, 3357-1, 8092-9, 76525-2, 18621-5, 39021-3, 76930-0, 20459-0 #### [facility] ([id number]) [address], [address] [place] [address] Urea nitrogen [Mass/Vol] 22 mg/dL Normal 5-27 [facility] Comment on above: Performed By: #### C BCA, CMP, 1987-12, FEPR, 2275-4, 2284-8, 99085-0, 2132-9, 19317-4, 65932-3, 5130-0, 65095-7, 60593-3, 67149-0, 3357-1, 8092-9, 07400-1, 39406-9, 63048-4, 44982-7, 39354-5 #### [facility] ([id number]) [address] [facility], [address] [place] [address] Basic Metabolic Panelon 08-27 Anion gap [Moles/Vol] 10 mmol/L 5 - 15 mmol/L [facility] Calcium [Mass/Vol] 8.5 mg/dL 8.5 - 10. 5 mg/dL [facility] Chloride [Moles/Vol] 101 mmol/L 98 - 10 9 mmol/L [facility] CO2 [Moles/Vol] 29 mmol/L 22 - 32 mmol/L [facility] Creatinine [Mass/Vol] 0.61 mg/dL 0.40 - 1.00 mg/dL [facility] Comment on above: METHOD TRACEABLE TO IDSD STANDARD eGFR (CKD-EPI)non-race dependent - PINF [facility] Comment on above: Reported eGFR is based on the CKD-EPI 2020 equation that does not use a race coefficient. Glucose [Mass/Vol] 98 mg/dL 65 - 99 mg/dL [facility] Potassium [Moles/Vol] 3.5 mmol/L 3.5 - 5.0 mmol/L [facility] Sodium [Moles/Vol] 140 mmol/L 134 - 146 mmol/L [facility] Urea nitrogen [Mass/Vol] 22 mg/dL 5 - 27 mg/dL [facility] CBC AND AUTO DIFFon 09-24-19 24 ABSOLUTE BASOPHIL 0.1 X10E9/L Normal 0.0-0.2 [facility] Comment on above: Performed By: #### C BCA, CMP, 1987-12, FEPR, 2275-4, 2284-8, 12194-2, 2132-9, 34115-7, 14366-4, 5130-0, 90932-7, 61302-2, 21756-5, 3357-1, 8092-9, 16592-7, 80592-4, 68335-5, 71077-1, 47560-8 #### [facility] ([id number]) [address] [facility], [address] [place] [address] ABSOLUTE NEUTROPHIL 16.3 X10E9/L High 1.5-6.6 [facility] Comment on above: Performed By: #### C BCA, CMP, 1987-12, FEPR, 2276-4, 2284-8, 89648-3, 2132-9, 79363-6, 27407-4, 5130-0, 62927-7, 62368-9, 81124-7, 3357-1, 8092-9, 29636-7, 86993-5, 27125-3, 09326-6, 19075-3 #### [facility] ([id number]) [address] [facility], [address] [place] [address] Basophils/100 WBC (Bld) 0.5 % Normal [facility] Comment on above: Performed By: #### C BCA, CMP, 1987-12, FEPR, 2276-4, 2284-8, 27131-1, 2132-9, 14285-3, 27758-5, 5130-0, 27379-6, 04710-5, 46236-6, 3357-1, 8092-9, 93800-9, 05895-7, 44009-0, 41154-7, 64306-3 #### [facility] ([id number]) [address] [facility], [address] [place] [address] Eosinophils (Bld) [#/Vol] 0.0 10*3/uL Normal 0.0-0.4 [facility] Comment on above: Performed By: #### C BCA, CMP, 1987-12, FEPR, 2276-4, 2284-8, 05646-2, 2132-9, 38160-3, 23124-2, 5130-0, 59827-6, 54237-6, 05873-7, 3357-1, 8092-9, 95351-9, 07956-8, 51056-3, 72424-0, 50870-4 #### [facility] ([id number]) [address], [address] [place] [address] Eosinophils/100 WBC (Bld) 0.0 % Normal [facility] Comment on above: Performed By: #### C BCA, CMP, 1987-12, FEPR, 227-4, 2284-8, 03141-2, 2132-9, 91626-5, 75677-1, 5130-0, 65341-1, 26114-0, 09644-5, 3357-1, 8092-9, 89207-8, 75258-3, 64970-1, 90220-8, 95444-0 #### [facility] ([id number]) [address] [facility], [address] [place] [address] Erythrocyte distribution width (RBC) [Ratio] 14.8 % Normal 11.5-15.0 [facility] Comment on above: Performed By: #### C BCA, CMP, 1987-12, FEPR, 227-4, 2284-8, 21524-8, 2132-9, 48420-4, 74897-2, 5130-0, 32015-3, 26571-1, 86161-6, 3357-1, 8092-9, 92598-2, 20609-7, 33174-6, 72632-9, 09622-1 #### [facility] ([id number]) [address], [address] [place] [address] Hematocrit (Bld) [Volume fraction] 25.6 % Low 35-47 [facility] Comment on above: Performed By: #### C BCA, [facility], 1987-12, FEPR, 2276-4, 2284-8, 83184-4, 2132-9, 83105-6, 94207-8, 5130-0, 28789-3, 53862-3, 02370-6, 3357-1, 8092-9, 66614-1, 67830-1, 04706-8, 58407-6, 25121-2 #### [facility] ([id number]) [address] [facility], [address] [place] [address] Hemoglobin (Bld) [Mass/Vol] 8.3 g/dL Low 11.7-15.5 [facility] Comment on above: Performed By: #### C SHARATH, [facility], 1987-12, FEPR, 2275-4, 2284-8, 29058-9, 2132-9, 88873-5, 91889-1, 5130-0, 36631-9, 37244-0, 72884-5, 3357-1, 8092-9, 39726-8, 41932-8, 62138-4, 97888-1, 39949-5 #### [facility] ([id number]) [address] [place] [address], [address] [address] Lymphocytes (Bld) [#/Vol] 1.6 10*3/uL Normal 1.0-3.5 [facility] Comment on above: Performed By: #### C SHARATH, [facility], 1987-12, FEPR, 2275-4, 2284-8, 40348-2, 2132-9, 99155-5, 42641-1, 5130-0, 68847-7, 95296-2, 81779-8, 3357-1, 8092-9, 28847-5, 10073-7, 64287-7, 71760-8, 62163-6 #### [facility] ([id number]) [address] [facility], [address] [place] [address] Lymphocytes/100 WBC (Bld) 8.3 % Normal [facility] Comment on above: Performed By: #### C BCA, CMP, 1987-12, FEPR, 2276-4, 2284-8, 36032-5, 2132-9, 87519-9, 89741-4, 5130-0, 93988-7, 34755-0, 41805-0, 3357-1, 8092-9, 59968-2, 06427-5, 80241-0, 85217-6, 01527-4 #### [facility] ([id number]) [address], [address] [place] [address] MCH (RBC) [Entitic mass] 27.8 pg Normal 27-34 [facility] Comment on above: Performed By: #### C SHARATH, CMP, 1987-12, FEPR, 2276-4, 2284-8, 62975-1, 2132-9, 49445-1, 31315-3, 5130-0, 98868-2, 75948-6, 60062-1, 3357-1, 8092-9, 51658-0, 31287-1, 08178-6, 31617-0, 00284-1 #### [facility] ([id number]) [address], [address] [place] [address] MCHC (RBC) [Mass/Vol] 32.5 g/dL Normal 32-36 [facility] Comment on above: Performed By: #### C BCA, CMP, 1987-12, FEPR, 2276-4, 2284-8, 91984-7, 2132-9, 55699-6, 44021-6, 5130-0, 28419-0, 49265-2, 38486-5, 3357-1, 8092-9, 80729-9, 61155-3, 03308-5, 36621-1, 89197-3 #### [facility] ([id number]) [address], [address] [place] [address] MCV (RBC) [Entitic vol] 85 fL Normal 80-100 [facility] Comment on above: Performed By: #### C BCA, CMP, 1987-12, FEPR, 2276-4, 2284-8, 92770-7, 2132-9, 53423-8, 21575-5, 5130-0, 72407-4, 06239-7, 11005-5, 3357-1, 8092-9, 13743-7, 71969-3, 11597-4, 37387-7, 10863-2 #### [facility] ([id number]) [address], [address] [place] [address] Monocytes (Bld) [#/Vol] 1.0 10*3/uL High 0-0.9 [facility] Comment on above: Performed By: #### C BCA, CMP, 1987-12, FEPR, 2275-4, 2284-8, 88307-9, 2132-9, 62816-3, 16321-6, 5130-0, 42263-0, 41349-2, 62058-6, 3357-1, 8092-9, 89538-3, 09104-9, 44819-0, 14004-0, 62835-2 #### [facility] ([id number]) [address], [address] [place] [address] Monocytes/100 WBC (Bld) 5.0 % Normal [facility] Comment on above: Performed By: #### C BCA, CMP, 1987-12, FEPR, 227-4, 2284-8, 14960-2, 2132-9, 74438-2, 24983-2, 5130-0, 60520-4, 46413-7, 63348-1, 3357-1, 8092-9, 09491-7, 22275-7, 95701-6, 15428-6, 90141-3 #### [facility] ([id number]) [address], [address] [place] [address] Neutrophils/100 WBC (Bld) 86.2 % Normal [facility] Comment on above: Performed By: #### C SHARATH, CMP, 1987-12, FEPR, 2276-4, 2284-8, 21983-3, 2132-9, 40644-3, 96124-7, 5130-0, 91846-2, 93957-3, 39300-8, 3357-1, 8092-9, 84263-8, 58168-7, 82403-5, 25388-0, 83703-6 #### [facility] ([id number]) [address], [address] [place] [address] Platelet mean volume (Bld) [Entitic vol] 6.5 fL Low 7-12 [facility] Comment on above: Performed By: #### C SHARATH, KELVIN, 1987-12, FEPR, 2275-4, 2284-8, 56254-0, 2132-9, 98766-6, 43282-3, 5130-0, 51727-5, 06298-3, 43001-1, 3357-1, 8092-9, 90381-4, 83125-8, 38068-2, 91620-6, 99781-1 #### [facility] ([id number]) [address], [address] [place] [address] Platelets (Bld) [#/Vol] 902 10*3/uL High 150-450 [facility] Comment on above: Performed By: #### C SHARATH, CMP, 1987-12, FEPR, 227-4, 2284-8, 25550-0, 2132-9, 58252-4, 78678-9, 5130-0, 76241-3, 53264-4, 59743-4, 3357-1, 8092-9, 71192-0, 33996-6, 89447-0, 43352-3, 29457-5 #### [facility] ([id number]) [address] [place] [address], [address] [place] [address] RBC COUNT 3.00 X10E12/L Low 3.80-5.20 [facility] Comment on above: Performed By: #### C SHARATH, [facility], 1987-12, FEPR, 2276-4, 2284-8, 09906-1, 2132-9, 34033-8, 25108-6, 5130-0, 06138-7, 09062-4, 82408-9, 3357-1, 8092-9, 83877-3, 02326-7, 56426-0, 09732-7, 61355-4 #### [facility] ([id number]) [address] [place] [address], [address] [address] WBC (Bld) [#/Vol] 18.9 10*3/uL High 4.0-11.0 [facility] Comment on above: Performed By: #### C SHARATH, [facility], 1987-12, FEPR, 2276-4, 2284-8, 10460-4, 2132-9, 39856-9, 97868-2, 5130-0, 26480-4, 62825-6, 33193-7, 3357-1, 8092-9, 02669-7, 03395-7, 56542-1, 64022-2, 17968-5 #### [facility] ([id number]) [address] [place] [address], [address] [address] CBC auto differentialon 08-27 Basophils (Bld) [#/Vol] 0.1 10*3/uL [facility] Basophils/100 WBC (Bld) 0.5 % [facility] Eosinophils (Bld) [#/Vol] 0.0 10*3/uL [facility] Eosinophils/100 WBC (Bld) 0.0 % [facility] Erythrocyte distribution width (RBC) [Ratio] 14.8 % 11.5 - 15.0 % [facility] Hematocrit (Bld) [Volume fraction] 25.6 % Low 35 - 47 % [facility] Hemoglobin (Bld) [Mass/Vol] 8.3 g/dL Low 11.7 - 15.5 g/dL [facility] Interpretation and review of laboratory results Abnormal [facility] Lymphocytes (Bld) [#/Vol] 1.6 10*3/uL [facility] Lymphocytes/100 WBC (Bld) 8.3 % [facility] MCH (RBC) [Entitic mass] 27.8 pg 27 - 34 pg [facility] MCHC (RBC) [Mass/Vol] 32.5 g/dL 32 - 3 6 g/dL [facility] MCV (RBC) [Entitic vol] 85 fL 80 - 100 fL [facility] Monocytes (Bld) [#/Vol] 1.0 10*3/uL High [facility] Monocytes/100 WBC (Bld) 5.0 % [facility] Neutrophils (Bld) [#/Vol] 16.3 10*3/uL High [facility] Neutrophils/100 WBC (Bld) 86.2 % [facility] Platelet mean volume (Bld) [Entitic vol] 6.5 fL Low 7 - 12 fL [facility] [facility] Platelets (Bld) [#/Vol] 902 10*3/uL High [facility] RBC (Bld) [#/Vol] 3.00 10*6/uL Low [facility] WBC corrected for nucl RBC Auto (Bld) [#/Vol] 18.9 High [facility] Cardiac echo study Procedure Ordered By: Nacho Grant on 09-24-2023 Aortic root 2.80 cm [facility] Work Phone: AV mean gradient 6.00 mmHg [facility] Work Phone: AV peak gradient 8.64 mmHg [facility] Work Phone: AV peak kym 147.00 cm/s [facility] Work Phone: AV valve area 1.95 cm2 [facility] Work Phone: AV Velocity Ratio 0.77 [facility] Work Phone: AV VTI 33.60 cm [facility] Work Phone: [phone] E wave deceleration time 187.00 msec [facility] Work Phone: [phone] E/A ratio 0.72 [facility] Work Phone: [phone] Echo EF Estimated 63 % [facility] Work Phone: [phone] EF 63 % [facility] Work Phone: [phone] Energy loss index 1.88 [facility] Work Phone: [phone] FS 33 % 28 - 44 % [facility] Work Phone: [phone] Interventricular Septum Diastolic Thickness by 2D 10 cm [facility] Work Phone: [phone] IVS 1.00 cm 0.6 - 1.1 cm [facility] Work Phone: [phone] LA size 3.60 cm [facility] Work Phone: [phone] LA volume 48.00 cm3 [facility] Work Phone: [phone] LA Volume Index 31.8 mL/m2 [facility] Work Phone: [phone] Left Ventricle Mass 122.147728332410593 g [facility] Work Phone: [phone] LV Diastolic Volume 71.20 mL [employer] Work Phone: [phone] LV ESV A2C 56.30 mL [facility] Work Phone: [phone] LV ESV A4C 33.20 mL [facility] Work Phone: [phone] LV RWT 2D 51.28 [facility] Work Phone: [phone] LV Systolic Volume 26.[address] Work Phone: [phone] LVIDd 3.90 cm 3.78 - 5.25 cm [facility] Work Phone: [phone] LVIDs 2.60 cm 2.25 - 3.40 cm [facility] Work Phone: [phone] LVOT diameter 1.80 cm [facility] Work Phone: LVOT peak kym 1.37 m/s [facility] Work Phone: [phone] LVOT peak VTI 25.80 cm [facility] Work Phone: LVOT stroke volume 65.65 ml [facility] Work Phone: [phone] MV Peak A Kym 99.40 cm/s [facility] Work Phone: [phone] MV Peak E Kym 71.30 cm/s [facility] [employer] Work Phone: [phone] MV pressure 1/2 time 55.00 ms [facility] Work Phone: [phone] MV TDI E' (medial) 6.85 cm/s [facility] Work Phone: [phone] MV valve area p 1/2 method 4.00 cm2 [facility] Work Phone: PV peak gradient 4.16 mmHg [facility] Work Phone: [phone] PW 1.00 cm 0.6 - 1.1 cm [facility] Work Phone: RV diastolic dimension (basal) 29.0 mm [facility] Work Phone: TAPSE 1.88 cm [facility] Work Phone: TDI 9.68 cm/s [facility] Work Phone: Valve area - Index 1.3 [facility] Work Phone: ZLVIDD -[phone] [facility] Work Phone: ZLVIDS -0.48 [facility] Work Phone: [facility] Work Phone: Cardiac echo study Procedure on [...] for comparison. [facility] Radiology Study observation (narrative) [facility] MR BRAIN W WO CONTon [...] of the major arterial structures in the [place]. The paranasal sinuses are clear. [...] Jewell MD on 09/24/2023 4:24 AM Normal [facility] MR Brain WO and W contrast [...] of the major arterial structures in the [place]. The paranasal sinuses are clear. [...] Gilbert Jewell MD on 09/24/2023 4:24 AM LATRELLRAGilbert Mcrae M D - 09/24/2023 MR BRAIN W [...] of the major arterial structures in the [place]. The paranasal sinuses are clear. [facility] Rad[facility] Study observation (narrative) [facility] MR ORBIT W WO CONTon [...] of the major arterial structures in the [place]. The paranasal sinuses are clear. [...] Jewell MD on 09/24/2023 4:25 AM Normal [facility] MR Orbit WO and W contrast I Von 09-24-2023 EXAM:MR ORBIT W WO C ONT [...] of the major arterial structures in the [place]. The paranasal sinuses are clear. [...] Sathish Charlton DO on 09/24/2023 4:18 AM Raisa, Gilbert Jewell MD have personally [...] of the major arterial structures in the [place]. The paranasal sinuses are clear. [...] Gilbert Jewell MD on 09/24/2023 4:25 AM [facility] Radiology Study observation (narrative) [facility] MR Orbit WO and W contrast I VOrdered By: Gilbert Jewell on 09-24-2023 [facility] Work Phone: Neutrophil cytoplasmic Ab IF Ql (S)on 09-24-2023 [facility] Reticulocyteson 09-24-2023 Reticulocytes/100 RBC (Bld) 2.3 % High 0.4 - 2.2 % [facility] Reticulocytes/100 RBC (Bld)o n 09-24-2023 Interpretation and review of laboratory results Abnormal [facility] RETICULOCYTE COUNT 2.3 % High 0.4-2.2 [facility] Comment on above: Performed By: #### C KELVIN EARLY, 1986-12, FEPR, 2275-, 2283-8, 05444-4, 213-9, 18248-3, 18457-5, 5130-0, 39507-1, 52506-0, 70817-1, 3357-1, 8092-9, 64134-6, 20512-6, 24015-6, 65487-2, 80637-2 #### [facility] ([id number]) [address] [place] [address] ACUTE HEPATITIS PANELon 08-27 ANTI HCV W/PCR REFLX Non-Reactive Normal NRCT Pr [facility] Comment on above: Result Comment: If recent infection suspected, recommend repeat testing (>2 months). Gmwxrx-kp-trwett ratio is <0.80. Performed By: #### C KELVIN EARLY, 1986-12, FEPR, 2276-4, 228-8, 25275-4, 2132-9, 13365-6, 54700-4, 5130-0, 02980-3, 91144-7, 47609-4, 3357-1, 8092-9, 31680-6, 98814-7, 27990-3, 43425-3, 34112-6 #### [facility] ([id number]) [address], [address] [place] [address] HEPATITIS A IGM Non-Reactive Normal NRCT [facility] Comment on above: Performed By: #### C BCA, CMP, 1987-12, FEPR, 2276-4, 2284-8, 09361-1, 2132-9, 18989-6, 65798-8, 5130-0, 77800-5, 35212-3, 07087-0, 3357-1, 8092-9, 16303-5, 54308-3, 45665-0, 29921-3, 71238-7 #### [facility] ([id number]) [address], [address] [place], [place] [id number] HEPATITIS B CORE IGM Negative Normal NEG [facility] Comment on above: Performed By: #### C BCA, CMP, 1987-[birth year], FEPR, 227-4, 2284-8, 88123-0, 2132-9, 69863-4, 84437-5, 5130-0, 23872-6, 55147-9, 48972-0, 3357-1, 8092-9, 85535-7, 49929-7, 28706-3, 68300-5, 37076-1 #### [facility] ([id number]) [address], [place] [id number] HEPATITIS B SURF AG Negative Normal NEG [facility] Comment on above: Performed By: #### C BCA, CMP, 1987-12, FEPR, 2276-4, 2284-8, 48133-1, 2132-9, 74371-3, 95111-2, 5130-0, 66038-7, 00412-6, 08338-3, 3357-1, 8092-9, 02153-9, 50557-0, 00147-9, 83214-7, 14544-5 #### [facility] ([id number]) [address] [facility], [address] [place] [address] SILVIA Screen w/ Reflexon 09-23 Nuclear Ab IA Ql (S) Positive Abnormal Negativ e^Ne [facility] Comment on above: Testing performed using multiplex flow immunoassay. Eleven different antigens associated with systemic autoimmune diseases (dsDNA,Sm,Sm/EQUIPMENT OPERAT0R,EQUIPMENT OPERAT0R,Chromatin, SSA,SSB,Tiki-1,Scl70,Ribo P,Centromere B) are included in this screening test. ANTI CARDIOLIPIN AB IGG IGA IGMon 09-23-2023 MIRIAM IgA <2.0 Normal 0-19.9 [facility] Comment on above: Performed By: #### C KELVIN EARLY, 1986-12, FEPR, 6-4, 2284-8, 36322-0, 2132-9, 69690-9, 67363-5, 5130-0, 92236-9, 48873-2, 92748-6, 3357-1, 8092-9, 86328-6, 22603-5, 21462-0, 73532-0, 08650-1 #### [facility] ([id number]) [address] [place] [address], [address] [place] [address] MIRIAM IgG <1.6 Normal 0-19.9 [facility] Comment on above: Performed By: #### C KELVIN EARLY, 1986-12, FEPR, 2275-4, 2284-8, 96112-4, 2132-9, 68791-8, 67906-3, 5130-0, 57673-4, 76286-7, 48577-6, 3357-1, 8092-9, 08663-6, 82182-7, 70146-2, 86218-4, 43933-3 #### [facility] ([id number]) [address] [place] [address], [address] [place] [address] MIRIAM IgM <1.5 Normal 0-19.9 [facility] Comment on above: Performed By: #### C KELVIN EARLY, 1986-12, FEPR, 2276-4, 2284-8, 17305-7, 2132-9, 78448-1, 90139-7, 5130-0, 15732-2, 41324-8, 66961-6, 3357-1, 8092-9, 85132-0, 14501-4, 38876-0, 61568-5, 89438-6 #### [facility] ([id number]) [address] [place] [address], [address] [place] [address] Anileridine Ql (U)on 024 JO1 ANTIBODY <0.2 Normal <1.0 [facility] Comment on above: Performed By: #### C SHARATH, [facility], 1987-12, FEPR, 2276-4, 2284-8, 82148-8, 2132-9, 01466-2, 32019-5, 5130-0, 79872-4, 10471-1, 46294-3, 3357-1, 8092-9, 70967-7, 49084-6, 11411-9, 71565-8, 84367-3 #### [facility] ([id number]) [address] [place] [address], [address] [place] [address] Anti cardiolipin AB IgG IgA IgMon 09-23-2023 Cardiolipin IgA IA Qn (S) [facility] Cardiolipin IgG IA Qn (S) [facility] Cardiolipin IgM IA Qn (S) [facility] Anti-Chromatin IGGon 024 Chromatin Ab Ql 0.4 [facility] Comment on above: CLIA ID [id number] Anti-DNA antibody, double-st randedon 09-23-2023 DNA double strand Ab Qn (S) 1 [IU]/mL [facility] Comment on above: Interpretation-------- <5 Negative 5-9 Indeterminate >9 Positive CLIA ID [id number] Anti-Ribosomal P AB IGGon Ribosomal P IgG Qn (S) [facility] Comment on above: CLIA ID [id number] Anti-Mejia AB IGGon 09-23-19 Mejia extractable nuclear IgG Qn (S) [facility] Comment on above: CLIA ID [id number] BETA-2 GP1 AB PANELon 2023 BETA-2 GP1 IgA <2.0 Normal 0.0-19.9 [facility] Comment on above: Performed By: #### C SHARATH, KELVIN, 1986-12, FEPR, 2276-4, 2284-8, 72653-7, 2132-9, 38579-1, 50735-6, 5130-0, 57899-1, 78384-5, 13866-9, 3357-1, 8092-9, 12823-6, 17399-8, 83337-5, 70688-9, 23523-3 #### [facility] ([id number]) [address] [address], [address] [place] [address] BETA-2 GP1 IgG <1.4 Normal 0.0-19.9 [facility] Comment on above: Performed By: #### C SHARATH, KELVIN, 1986-12, FEPR, 2276-4, 2284-8, 06009-0, 2131-9, 83422-3, 36682-1, 5130-0, 15602-2, 50024-2, 75698-2, 3357-1, 8092-9, 35903-9, 27745-1, 65433-6, 72943-3, 82395-0 #### [facility] ([id number]) [address] [facility], [address] [place] [address] BETA-2 GP1 IgM 4.1 u/mL Normal 0.0-19.9 [facility] Comment on above: Performed By: #### C SHARATH, CMP, 1987-12, FEPR, 2276-4, 2284-8, 16865-0, 2132-9, 55080-6, 13883-3, 5130-0, 04123-3, 29560-4, 20813-9, 3357-1, 8092-9, 78900-3, 67878-6, 41342-7, 93128-2, 82718-3 #### [facility] ([id number]) [address] [place] [address], [address] [place] [address] Beta-2 glycoprotein antibodi eson 09-23-2023 Beta 2 glycoprotein 1 IgA IA Qn u/mL 0.0 - 19.9 u/mL [facility] Beta 2 glycoprotein 1 IgG IA Qn u/mL 0.0 - 19.9 u/mL [facility] Beta 2 glycoprotein 1 IgM IA Qn 4.1 u/mL 0.0 - 19.9 u/mL [facility] C-reactive proteinon 024 CRP [Mass/Vol] 13.3 mg/dL High 0.000 - 0.744 mg/dL [facility] CBC AND AUTO DIFFon 09-23-19 24 ABSOLUTE BASOPHIL 0.0 X10E9/L Normal 0.0-0.2 [facility] Comment on above: Performed By: #### C BCA, CMP, 1987-12, FEPR, 2275-4, 4-8, 18837-4, 2-9, 34626-9, 05917-9, 5130-0, 89806-5, 53800-0, 20961-9, 3357-1, 8092-9, 50711-2, 43958-4, 55853-6, 47779-5, 25291-4 #### [facility] ([id number]) [facility] [facility], [address] [place] [address] ABSOLUTE NEUTROPHIL 11.5 X10E9/L High 1.5-6.6 [facility] Comment on above: Performed By: #### C BCA, CMP, 1987-12, FEPR, 2276-4, 2284-8, 02307-1, 2132-9, 75685-5, 50892-3, 5130-0, 09758-7, 17652-8, 91970-0, 3357-1, 8092-9, 82867-4, 12461-4, 81733-3, 03315-2, 72918-5 #### [facility] ([id number]) [address], [address] [place] [address] Basophils/100 WBC (Bld) 0.2 % Normal [facility] Comment on above: Performed By: #### C BCA, CMP, 1987-12, FEPR, 6-4, 2284-8, 74879-8, 2132-9, 21212-1, 11644-8, 5130-0, 65021-0, 41693-6, 15011-2, 3357-1, 8092-9, 53104-4, 53357-5, 02092-5, 34189-0, 57864-6 #### [facility] ([id number]) [address], [address] [place] [address] Eosinophils (Bld) [#/Vol] 0.0 10*3/uL Normal 0.0-0.4 [facility] Comment on above: Performed By: #### C BCA, CMP, 1987-12, FEPR, 2275-4, 2284-8, 09019-1, 2132-9, 90081-6, 07176-5, 5130-0, 74170-2, 15843-2, 57899-3, 3357-1, 8092-9, 06747-8, 48788-9, 00030-6, 44240-6, 16045-7 #### [facility] ([id number]) [address], [address] [place] [address] Eosinophils/100 WBC (Bld) 0.0 % Normal [facility] Comment on above: Performed By: #### C BCA, CMP, 1987-12, FEPR, 2276-4, 2284-8, 21907-2, 2132-9, 38421-3, 22371-1, 5130-0, 71841-5, 17510-2, 52078-0, 3357-1, 8092-9, 88287-7, 27439-4, 76084-5, 91945-1, 62133-2 #### [facility] ([id number]) [address] [facility] [facility], [address] [place] [address] Erythrocyte distribution width (RBC) [Ratio] 14.4 % Normal 11.5-15.0 [facility] Comment on above: Performed By: #### C BCA, [facility], 1987-12, FEPR, 2276-4, 2284-8, 78846-8, 2132-9, 38626-2, 09425-2, 5130-0, 91228-1, 81324-7, 12941-3, 3357-1, 8092-9, 49595-5, 61000-0, 04686-0, 33046-9, 27211-7 #### [facility] ([id number]) [facility] [address] Hematocrit (Bld) [Volume fraction] 27.8 % Low 35-47 [facility] Comment on above: Performed By: #### C BCA, [facility], 1987-12, FEPR, 2276-4, 2284-8, 61321-6, 2132-9, 23251-7, 91585-0, 5130-0, 50463-4, 86302-1, 54042-8, 3357-1, 8092-9, 66898-0, 49898-4, 18395-3, 49889-0, 43461-3 #### [facility] ([id number]) [address] [facility], [address] [place] [address] Hemoglobin (Bld) [Mass/Vol] 9.1 g/dL Low 11.7-15.5 [facility] Comment on above: Performed By: #### C SHARATH, KELVIN, 1987-12, FEPR, 2276-4, 2284-8, 50162-7, 2132-9, 97283-6, 57918-0, 5130-0, 04757-5, 95645-0, 16733-6, 3357-1, 8092-9, 94972-9, 42345-7, 31737-2, 92190-6, 30306-4 #### [facility] ([id number]) [address], [address] [place] [address] Lymphocytes (Bld) [#/Vol] 0.4 10*3/uL Low 1.0-3.5 [facility] Comment on above: Performed By: #### C SHARATH, KELVIN, 1987-12, FEPR, 2276-4, 2284-8, 61385-3, 2132-9, 45064-8, 08837-9, 5130-0, 52406-7, 18497-3, 10666-0, 3357-1, 8092-9, 21358-8, 81328-5, 03888-0, 98423-2, 41622-6 #### [facility] ([id number]) [address], [address] [place] [address] Lymphocytes/100 WBC (Bld) 3.3 % Normal [facility] Comment on above: Performed By: #### C SHARATH, KELVIN, 1987-12, FEPR, 2276-4, 2284-8, 34112-7, 2132-9, 54422-5, 28867-7, 5130-0, 22489-4, 56172-1, 75067-7, 3357-1, 8092-9, 88213-8, 96715-6, 57556-8, 55009-5, 89226-6 #### [facility] ([id number]) [address], [address] [place] [address] MCH (RBC) [Entitic mass] 27.8 pg Normal 27-34 [facility] Comment on above: Performed By: #### C BCA, CMP, 1987-12, FEPR, 2276-4, 2284-8, 21990-3, 2132-9, 99447-8, 04709-1, 5130-0, 71818-8, 97892-2, 81393-2, 3357-1, 8092-9, 37674-2, 11505-1, 76741-4, 83205-0, 40526-6 #### [facility] ([id number]) [address], [address] [place] [address] MCHC (RBC) [Mass/Vol] 32.7 g/dL Normal 32-36 [facility] Comment on above: Performed By: #### C BCA, CMP, 1987-12, FEPR, 2276-4, 2284-8, 18080-5, 2132-9, 65926-0, 63289-4, 5130-0, 45729-8, 44074-8, 83854-3, 3357-1, 8092-9, 99698-9, 48601-6, 02318-0, 89769-1, 59050-2 #### [facility] ([id number]) [address], [address] [place] [address] MCV (RBC) [Entitic vol] 85 fL Normal 80-100 [facility] Comment on above: Performed By: #### C BCA, CMP, 1987-12, FEPR, 2276-4, 2284-8, 39641-8, 2132-9, 73797-2, 26944-4, 5130-0, 53563-5, 20082-4, 31885-9, 3357-1, 8092-9, 09980-0, 89340-8, 11401-4, 78562-2, 55781-7 #### [facility] ([id number]) [address], [address] [place] [address] Monocytes (Bld) [#/Vol] 0.1 10*3/uL Normal 0-0.9 [facility] Comment on above: Performed By: #### C BCA, CMP, 1987-12, FEPR, 2276-4, 2284-8, 60960-1, 2132-9, 43209-4, 50532-5, 5130-0, 12316-9, 58606-9, 16037-9, 3357-1, 8092-9, 90157-7, 16644-8, 39074-0, 17948-9, 60280-0 #### [facility] ([id number]) [address], [address] [place] [address] Monocytes/100 WBC (Bld) 1.0 % Normal [facility] Comment on above: Performed By: #### C SHARATH, CMP, 1987-12, FEPR, 2275-4, 2284-8, 93481-8, 2132-9, 94335-5, 70577-2, 5130-0, 22121-0, 42923-5, 47941-7, 3357-1, 8092-9, 05457-2, 92725-6, 93418-7, 66840-9, 79784-5 #### [facility] ([id number]) [address], [address] [place] [address] Neutrophils/100 WBC (Bld) 95.5 % Normal [facility] Comment on above: Performed By: #### C BCA, CMP, 1987-12, FEPR, 2276-4, 2284-8, 70024-5, 2132-9, 71991-2, 06665-1, 5130-0, 22504-9, 99324-5, 46072-0, 3357-1, 8092-9, 22680-4, 53174-3, 44511-8, 27431-0, 73762-5 #### [facility] ([id number]) [address], [address] [place] [address] Platelet mean volume (Bld) [Entitic vol] 6.2 fL Low 7-12 [facility] Comment on above: Performed By: #### C SHARATH, CMP, 1987-12, FEPR, 2276-4, 2284-8, 00441-6, 2132-9, 87125-8, 44549-9, 5130-0, 84171-6, 19590-3, 58273-3, 3357-1, 8092-9, 17320-0, 80454-5, 75107-8, 48410-4, 35748-2 #### [facility] ([id number]) [address], [address] [place] [address] Platelets (Bld) [#/Vol] 924 10*3/uL High 150-450 [facility] Comment on above: Performed By: #### C SHARATH, KELVIN, 1987-12, FEPR, 2275-4, 2284-8, 41698-2, 2132-9, 68462-1, 34835-7, 5130-0, 94645-1, 83354-4, 24755-0, 3357-1, 8092-9, 41954-9, 22849-9, 61472-2, 31511-3, 24532-1 #### [facility] ([id number]) [address], [address] [place] [address] RBC COUNT 3.27 X10E12/L Low 3.80-5.20 [facility] Comment on above: Performed By: #### C SHARATH, CMP, 1987-12, FEPR, 227-4, 2284-8, 92208-2, 2132-9, 06205-2, 18684-6, 5130-0, 02168-7, 16873-4, 49136-7, 3357-1, 8092-9, 53746-6, 77973-1, 49845-4, 09275-5, 91436-9 #### [facility] ([id number]) [address], [address] [place] [address] WBC (Bld) [#/Vol] 12.1 10*3/uL High 4.0-11.0 [facility] Comment on above: Performed By: #### C BCA, CMP, 1987-12, FEPR, 2276-4, 2284-8, 68526-7, 2132-9, 90311-3, 06965-4, 5130-0, 99854-5, 10788-0, 14980-7, 3357-1, 8092-9, 23523-5, 81930-3, 58609-3, 39057-2, 15371-0 #### [facility] ([id number]) [address], [address] [place] [address] ABSOLUTE BASOPHIL 0.2 X10E9/L Normal 0.0-0.2 [facility] Comment on above: Performed By: #### C BCA, CMP, 1987-12, FEPR, 2276-4, 2284-8, 88310-9, 2132-9, 15524-9, 03878-8, 5130-0, 54956-9, 05126-1, 83144-7, 3357-1, 8092-9, 84739-0, 00881-2, 95611-8, 74972-7, 01618-6 #### [facility] ([id number]) [address], [address] [place] [address] ABSOLUTE NEUTROPHIL 10.4 X10E9/L High 1.5-6.6 [facility] Comment on above: Performed By: #### C BCA, CMP, 1987-12, FEPR, 2276-4, 2284-8, 60207-2, 2132-9, 63966-6, 44542-6, 5130-0, 52503-2, 46690-6, 89463-9, 3357-1, 8092-9, 41818-3, 47907-1, 10324-5, 52940-9, 46368-8 #### [facility] ([id number]) [address], [address] [place] [address] Basophils/100 WBC (Bld) 2.1 % Normal [facility] Comment on above: Performed By: #### C BCA, CMP, 1987-12, FEPR, 2276-4, 2284-8, 45274-3, 2132-9, 53172-4, 26989-8, 5130-0, 06738-1, 42172-7, 46328-6, 3357-1, 8092-9, 12477-3, 55998-7, 05272-8, 43066-7, 33471-3 #### [facility] ([id number]) [address], [address] [place] [address] Eosinophils (Bld) [#/Vol] 0.0 10*3/uL Normal 0.0-0.4 [facility] Comment on above: Performed By: #### C BCA, CMP, 1987-12, FEPR, 2275-4, 2284-8, 41140-8, 2132-9, 39408-5, 32897-2, 5130-0, 86401-7, 34785-4, 81782-9, 3357-1, 8092-9, 41204-5, 27067-9, 36808-0, 47051-7, 40167-6 #### [facility] ([id number]) [address], [address] [place] [address] Eosinophils/100 WBC (Bld) 0.0 % Normal [facility] Comment on above: Performed By: #### C BCA, CMP, 1987-12, FEPR, 227-4, 2284-8, 75287-0, 2132-9, 97226-8, 25823-5, 5130-0, 34809-6, 21882-5, 91645-4, 3357-1, 8092-9, 81806-9, 60787-0, 41087-2, 99251-5, 00682-0 #### [facility] ([id number]) [address], [address] [place] [address] Erythrocyte distribution width (RBC) [Ratio] 14.6 % Normal 11.5-15.0 [facility] Comment on above: Performed By: #### C SHARATH, CMP, 1987-12, FEPR, 227-4, 2284-8, 19257-9, 2132-9, 60048-2, 28174-6, 5130-0, 21567-3, 28952-9, 17744-1, 3357-1, 8092-9, 25960-3, 14706-0, 22593-9, 60726-3, 40545-0 #### [facility] ([id number]) [address], [address] [address] Hematocrit (Bld) [Volume fraction] 26.2 % Low 35-47 [facility] Comment on above: Performed By: #### C SHARATH, CMP, 1987-12, FEPR, 2275-4, 2284-8, 27364-8, 2132-9, 89017-7, 62157-0, 5130-0, 95818-3, 66089-8, 71909-3, 3357-1, 8092-9, 62519-0, 85507-7, 41397-0, 95330-6, 27634-9 #### [facility] ([id number]) [address], [address] [place] [address] Hemoglobin (Bld) [Mass/Vol] 8.6 g/dL Low 11.7-15.5 [facility] Comment on above: Performed By: #### C SHARATH, CMP, 1987-12, FEPR, 2276-4, 2284-8, 53889-2, 2132-9, 00117-6, 55414-6, 5130-0, 13631-9, 43394-1, 79797-7, 3357-1, 8092-9, 91257-7, 28653-0, 84043-8, 68524-8, 64696-3 #### [facility] ([id number]) [address], [address] [place] [address] Lymphocytes (Bld) [#/Vol] 0.4 10*3/uL Low 1.0-3.5 [facility] Comment on above: Performed By: #### C SHARATH, CMP, 1987-12, FEPR, 2276-4, 2284-8, 02123-3, 2132-9, 24008-3, 00219-7, 5130-0, 22192-5, 25859-1, 20558-9, 3357-1, 8092-9, 68269-5, 49891-2, 30636-0, 73199-3, 57613-9 #### [facility] ([id number]) [address], [address] [place] [address] Lymphocytes/100 WBC (Bld) 3.6 % Normal [facility] Comment on above: Performed By: #### C SHARATH, CMP, 1987-12, FEPR, 2275-4, 2284-8, 44373-9, 2132-9, 27825-8, 62514-5, 5130-0, 56133-3, 39611-4, 71030-4, 3357-1, 8092-9, 57484-3, 32246-3, 01900-5, 24069-9, 36627-3 #### [facility] ([id number]) [address], [address] [place] [address] MCH (RBC) [Entitic mass] 28.1 pg Normal 27-34 [facility] Comment on above: Performed By: #### C BCA, CMP, 1987-12, FEPR, 2276-4, 2284-8, 80370-0, 2132-9, 54226-6, 66736-0, 5130-0, 64365-6, 77826-4, 35913-5, 3357-1, 8092-9, 08509-5, 33606-3, 23721-7, 20792-5, 30427-0 #### [facility] ([id number]) [address], [address] [place] [address] MCHC (RBC) [Mass/Vol] 32.9 g/dL Normal 32-36 [facility] Comment on above: Performed By: #### C BCA, CMP, 1987-12, FEPR, 2276-4, 2284-8, 93933-2, 2132-9, 92137-1, 55213-2, 5130-0, 09442-8, 53528-0, 11986-1, 3357-1, 8092-9, 50912-4, 76006-1, 75652-1, 18736-2, 35613-8 #### [facility] LAB ([id number]) [address], [address] [place] [address] MCV (RBC) [Entitic vol] 85 fL Normal 80-100 P [facility] Comment on above: Performed By: #### C BCA, CMP, 1987-12, FEPR, 6-4, 2284-8, 13429-1, 2132-9, 76574-3, 79988-4, 5130-0, 96629-7, 18793-3, 46384-4, 3357-1, 8092-9, 06129-8, 33764-9, 58372-8, 84128-8, 39415-7 #### [facility] ([id number]) [address], [address] [place] [address] Monocytes (Bld) [#/Vol] 0.1 10*3/uL Normal 0-0.9 [facility] Comment on above: Performed By: #### C BCA, CMP, 1987-12, FEPR, 2276-4, 2284-8, 75527-8, 2132-9, 00447-7, 92366-8, 5130-0, 49675-2, 87172-4, 86176-2, 3357-1, 8092-9, 19826-0, 99590-7, 21362-9, 84583-7, 62922-0 #### [facility] ([id number]) [address], [address] [place] [address] Monocytes/100 WBC (Bld) 1.0 % Normal [facility] Comment on above: Performed By: #### C BCA, CMP, 1987-12, FEPR, 2276-4, 2284-8, 69968-1, 2132-9, 56139-7, 49689-2, 5130-0, 28593-7, 92490-7, 49831-4, 3357-1, 8092-9, 33105-5, 28932-0, 78720-9, 90184-8, 97601-7 #### [facility] ([id number]) [address], [address] [place] [address] Neutrophils/100 WBC (Bld) 93.3 % Normal [facility] Comment on above: Performed By: #### C BCA, CMP, 1987-12, FEPR, 2275-4, 2284-8, 09890-2, 2132-9, 73223-2, 28222-2, 5130-0, 44082-7, 34104-9, 99595-7, 3357-1, 8092-9, 91675-4, 19200-0, 47574-0, 30319-6, 89095-9 #### [facility] ([id number]) [address], [address] [place] [address] Platelet mean volume (Bld) [Entitic vol] 6.3 fL Low 7-12 [facility] Comment on above: Performed By: #### C BCA, CMP, 1987-12, FEPR, 227-4, 2284-8, 93405-4, 2132-9, 39954-1, 32919-6, 5130-0, 33754-5, 85919-3, 15794-0, 3357-1, 8092-9, 40283-8, 05318-0, 74272-5, 21691-3, 21086-5 #### [facility] ([id number]) [address], [address] [place] [address] Platelets (Bld) [#/Vol] 917 10*3/uL High 150-450 [facility] Comment on above: Performed By: #### C SHARATH, CMP, 1987-12, FEPR, 2276-4, 2284-8, 83755-5, 2132-9, 19527-6, 71043-1, 5130-0, 77637-7, 58842-3, 96661-4, 3357-1, 8092-9, 63465-9, 68815-4, 30594-7, 50839-6, 98324-8 #### [facility] ([id number]) [address] [facility] [place] [address] RBC COUNT 3.07 X10E12/L Low 3.80-5.20 [facility] Comment on above: Performed By: #### C SHARATH, CMP, 1987-12, FEPR, 6-4, 2284-8, 62891-2, 2132-9, 75657-7, 25649-0, 5130-0, 05739-5, 98996-5, 35635-5, 3357-1, 8092-9, 96693-3, 33874-0, 08981-2, 11612-0, 10233-4 #### [facility] ([id number]) [address], [address] [place] [address] WBC (Bld) [#/Vol] 11.1 10*3/uL High 4.0-11.0 [facility] Comment on above: Performed By: #### C SHARATH, CMP, 1988-5, FEPR, 2276-4, 2284-8, 84760-8, 2132-9, 00392-6, 85561-6, 5130-0, 18823-7, 41512-3, 57184-5, 3357-1, 8092-9, 88033-5, 11007-6, 33364-3, 02866-2, 49843-6 #### [facility] ([id number]) [address] [facility] [place] [address] CBC auto differentialon 08-27 Basophils (Bld) [#/Vol] 0.0 10*3/uL [facility] Basophils/100 WBC (Bld) 0.2 % P [facility] Eosinophils (Bld) [#/Vol] 0.0 [...] Interpretation and review of laboratory results Abnormal [facility] Lymphocytes (Bld) [#/Vol] 0.4 10*3/uL [...] 6.2 fL Low 7 - 12 fL [facility] Platelets (Bld) [#/Vol] 924 10*3/uL High [facility] RBC (Bld) [#/Vol] 3.27 10*6/uL Low [facility] WBC corrected for nucl RBC Auto (Bld) [#/Vol] 12.1 High [facility] Basophils (Bld) [#/Vol] 0.2 10*3/uL [facility] Basophils/100 WBC (Bld) 2.1 % [facility] Eosinophils (Bld) [#/Vol] 0.0 10*3/uL [facility] Eosinophils/100 WBC (Bld) 0.0 % [facility] Erythrocyte distribution width (RBC) [Ratio] 14.6 % 11.5 - 15.0 % [facility] Hematocrit (Bld) [Volume fraction] 26.2 % Low 35 - 47 % [facility] Hemoglobin (Bld) [Mass/Vol] 8.6 g/dL Low 11.7 - 15.5 g/dL [facility] Interpretation and review of laboratory results Abnormal [facility] Lymphocytes (Bld) [#/Vol] 0.4 10*3/uL Low [facility] Lymphocytes/100 WBC (Bld) 3.6 % [facility] MCH (RBC) [Entitic mass] 28.1 pg 27 - 34 pg [facility] MCHC (RBC) [Mass/Vol] 32.9 g/dL 32 - 3 6 g/dL [facility] MCV (RBC) [Entitic vol] 85 fL 80 - 100 fL [facility] Monocytes (Bld) [#/Vol] 0.1 10*3/uL [facility] Monocytes/100 WBC (Bld) 1.0 % [facility] Neutrophils (Bld) [#/Vol] 10.4 10*3/uL High [facility] Neutrophils/100 WBC (Bld) 93.3 % [facility] Platelet mean volume (Bld) [Entitic vol] 6.3 fL Low 7 - 12 fL [facility] Platelets (Bld) [#/Vol] 917 10*3/uL High [facility] RBC (Bld) [#/Vol] 3.07 10*6/uL Low [facility] WBC corrected for nucl RBC Auto (Bld) [#/Vol] 11.1 High [facility] COMPREHENSIVE METABOLIC PANE Cole 09-23-2023 Albumin [Mass/Vol] 3.0 g/dL Low 3.2-5.3 [facility] Comment on above: Performed By: #### C BCA, CMP, 1987-12, FEPR, 2276-4, 2284-8, 75905-3, 2132-9, 08395-0, 12056-9, 5130-0, 99026-6, 00432-5, 96331-5, 3357-1, 8092-9, 64782-8, 25265-0, 06324-5, 58196-0, 41668-7 #### [facility] ([id number]) [address] [place] [address], [address] [place] [address] ALP [Catalytic activity/Vol] 227 U/L High 39-130 [facility] Comment on above: Performed By: #### C BCA, CMP, 1987-12, FEPR, 2276-4, 2284-8, 29965-3, 2132-9, 41480-8, 39204-1, 5130-0, 75980-9, 68445-9, 21898-2, 3357-1, 8092-9, 04433-8, 18900-2, 75961-6, 38345-8, 74268-2 #### [facility] ([id number]) [address] [place] [address], [address] [place] [address] ALT [Catalytic activity/Vol] 11 U/L Normal 0-31 [facility] Comment on above: Performed By: #### C BCA, CMP, 1987-12, FEPR, 2276-4, 2284-8, 75130-6, 2132-9, 73649-7, 40245-7, 5130-0, 22851-8, 83097-1, 49899-6, 3357-1, 8092-9, 00354-2, 92988-6, 04586-8, 98506-3, 80224-8 #### [facility] ([id number]) [address], [address] [place] [address] Anion gap [Moles/Vol] 13 mmol/L Normal 5-15 [facility] Comment on above: Performed By: #### C BCA, CMP, 1987-12, FEPR, 2276-4, 2284-8, 09081-2, 2132-9, 03207-3, 06987-2, 5130-0, 70242-6, 35132-3, 42014-4, 3357-1, 8092-9, 38158-9, 41069-9, 63212-0, 69812-1, 97977-1 #### [facility] ([id number]) [address] [facility] [place] [address] AST [Catalytic activity/Vol] 12 U/L Normal 0-41 [facility] Comment on above: Performed By: #### C BCA, CMP, 1987-12, FEPR, 2276-4, 2284-8, 63792-8, 2132-9, 14057-6, 25146-0, 5130-0, 80058-3, 95595-1, 98167-0, 3357-1, 8092-9, 72512-2, 33523-2, 09598-7, 14379-7, 81325-0 #### [facility] ([id number]) [address] [facility] [place] [address] Bilirubin [Mass/Vol] 0.6 mg/dL Normal 0.3-1.2 [facility] Comment on above: Performed By: #### C BCA, CMP, 1987-12, FEPR, 2276-4, 2284-8, 11778-5, 2132-9, 62180-6, 75706-1, 5130-0, 18011-8, 80270-7, 87890-5, 3357-1, 8092-9, 37779-4, 41542-5, 59641-7, 71342-7, 66968-3 #### [facility] ([id number]) [address], [address] [place] [address] Calcium [Mass/Vol] 8.6 mg/dL Normal 8.5-10.5 [facility] Comment on above: Performed By: #### C BCA, CMP, 1987-12, FEPR, 2276-4, 2284-8, 05667-0, 2131-9, 79995-9, 07885-3, 5130-0, 23346-9, 27594-5, 94558-0, 3357-1, 8092-9, 25569-8, 47568-7, 14424-8, 04488-4, 81967-3 #### [facility] ([id number]) [address], [address] [place] [address] Chloride [Moles/Vol] 101 mmol/L Normal 98-109 [facility] Comment on above: Performed By: #### C BCA, CMP, 1987-12, FEPR, 6-4, 2284-8, 25451-7, 2131-9, 47578-3, 59314-2, 5130-0, 74970-3, 82773-9, 04887-5, 3357-1, 8092-9, 42303-2, 16537-7, 81192-2, 02454-1, 04428-7 #### [facility] ([id number]) [address], [address] [place] [address] CO2 [Moles/Vol] 25 mmol/L Normal 22-32 [facility] Comment on above: Performed By: #### C BCA, CMP, 1987-12, FEPR, 227-4, 2284-8, 66643-3, 2132-9, 01670-1, 92195-4, 5130-0, 93800-9, 54352-9, 49637-3, 3357-1, 8092-9, 33942-5, 29498-2, 77299-9, 25025-8, 51862-5 #### [facility] ([id number]) [address] [place] [address] Creatinine [Mass/Vol] 0.49 mg/dL Normal 0.40-1.00 [facility] Comment on above: Result Comment: METH OD TRACEABLE TO IDMS STANDARD Performed By: #### C SHARATH, CMP, 1987-12, FEPR, 2276-4, 2284-8, 53799-1, 2132-9, 62814-9, 78312-3, 5130-0, 27164-9, 56633-5, 68061-0, 3357-1, 8092-9, 25182-8, 06664-8, 95450-0, 72001-4, 57250-2 #### [facility] ([id number]) [address] [place] [address] eGFR (CKD-EPI) NON-RACE DEPENDENT >90 Normal >59 [facility] Comment on above: Result Comment: Reported eGFR is based on the CKD-EPI 2020 equation that does not use a race coefficient. Performed By: #### C BCA, CMP, 1987-12, FEPR, 2276-4, 2284-8, 22910-7, 2132-9, 86999-9, 32748-3, 5130-0, 69451-1, 17296-6, 14365-1, 3357-1, 8092-9, 78983-8, 17043-2, 46170-4, 61546-6, 62343-5 #### [facility] ([id number]) [address] [facility] [place] [address] Glucose [Mass/Vol] 141 mg/dL High 65-99 [facility] Comment on above: Performed By: #### C BCA, CMP, 1987-12, FEPR, 2276-4, 2284-8, 54071-6, 2132-9, 04310-4, 36430-6, 5130-0, 58035-0, 30679-1, 80745-4, 3357-1, 8092-9, 81916-1, 50359-8, 20772-9, 40523-9, 93581-9 #### [facility] ([id number]) [address] [facility], [address] [place] [address] Potassium [Moles/Vol] 3.7 mmol/L Normal 3.5-5.0 [facility] Comment on above: Performed By: #### C BCA, CMP, 1987-12, FEPR, 2276-4, 2284-8, 86509-5, 2132-9, 24399-5, 71719-0, 5130-0, 02566-3, 39206-4, 14841-5, 3357-1, 8092-9, 15027-3, 21869-6, 94881-0, 55688-8, 89020-5 #### [facility] ([id number]) [address] [facility] [place] [address] Protein [Mass/Vol] 6.9 g/dL Normal 6.0-8.0 [facility] Comment on above: Performed By: #### C BCA, CMP, 1987-12, FEPR, 2276-4, 2284-8, 62713-2, 2132-9, 30425-8, 39489-4, 5130-0, 11173-3, 14811-3, 95203-9, 3357-1, 8092-9, 00782-5, 18598-1, 39683-1, 50598-8, 44955-3 #### [facility] ([id number]) [address] [facility], [address] [place] [address] Sodium [Moles/Vol] 139 mmol/L Normal 134-146 [facility] Comment on above: Performed By: #### C BCA, CMP, 1987-12, FEPR, 2276-4, 2284-8, 42811-9, 2132-9, 92275-9, 76882-5, 5130-0, 20091-9, 29931-9, 21172-3, 3357-1, 8092-9, 74218-7, 17166-3, 17080-1, 02389-2, 83281-6 #### [facility] ([id number]) [address] [facility], [address] [place] [address] Urea nitrogen [Mass/Vol] 14 mg/dL Normal 5-27 [facility] Comment on above: Performed By: #### C BCA, CMP, 1987-12, FEPR, 227-4, 2284-8, 92371-4, 2132-9, 38757-9, 87536-9, 5130-0, 04792-8, 34519-4, 97020-1, 3357-1, 8092-9, 40193-6, 03653-5, 89062-0, 56951-5, 11567-6 #### [facility] ([id number]) [facility] [facility], [address] [place] [address] CRP [Mass/Vol]on 09-23-2023 C REACTIVE PROTEIN 13.3 mg/dL High 0.000-0.744 [facility] Comment on above: Performed By: #### C BCA, CMP, 1987-12, FEPR, 227-4, 2284-8, 71530-3, 2132-9, 05280-7, 21939-1, 5130-0, 38850-9, 56654-7, 10895-3, 3357-1, 8092-9, 99446-4, 21651-4, 41567-9, 41001-2, 61709-4 #### [facility] ([id number]) [address] [facility], [address] [place] [address] Centromere ABon 09-23-2023 Centromere protein B Ab Ql (S) High NINF [facility] Comment on above: CLIA ID [id number] [employer] protein B Ab Ql ( S)on 09-23-2023 Interpretation and review of laboratory results Abnormal [facility] CENTROMERE ANTIBODY >8.0 High <1.0 [facility] Comment on above: Performed By: #### C BCA, CMP, 1987-12, FEPR, 6-4, 2284-8, 87407-7, 2132-9, 70778-6, 92255-5, 5130-0, 24689-5, 51817-0, 09856-4, 3357-1, 8092-9, 26939-4, 13518-6, 50506-0, 28775-0, 42079-0 #### [facility] ([id number]) [address] [place] [address], [address] [address] Chromatin Ab Qlon 09-23-2023 CHROMATIN AB IGG 0.4 AI Normal <1.0 [facility] Comment on above: Performed By: #### C BCA, CMP, 1987-12, FEPR, 6-4, 2284-8, 53098-9, 2-9, 13788-4, 73034-4, 5130-0, 17987-9, 16135-9, 26739-1, 3357-1, 8092-9, 07397-2, 99773-8, 31796-5, 24529-3, 69153-4 #### [facility] ([id number]) [address] [place] [address], [address] [place] [address] Clinical Pathologyon 024 Clinical Pathology Normal [facility] Comment on above: Result Comment: [facility] [address] [place] [address] Clinical Pathology Report Patient Name:JOSE DAVIDMoises:1945 (Age: 78)Gender:FTaken:09/23/2023eported:09/27/2023hysician(s):Olga Pan M.D. ([phone])Copy To: Rec. #:[id number]: #[id number] Final Pathologic Diagnosis Hypoalbuminemia with increase in acute phase reactants. No monoclonal bands identified. Report Electronically Signed Out df/09/27/2023kevin Bains MD Interpretation performed at [facility] [employer], [address] [place] [address], License number: [id number]. Clinical History E53.8, H53.8, R29.90. SERUM PROTEIN ELECTROPHORESIS SAMPLE NO: [id number] ELECTROPHORETIC FRACTION CONCENTRATIONS (g/dL) PATIENT REFERENCE RANGE [...] IgA : 180 IgM : 285 Free [place]: 2.91 Free Lambda: 2.38 Free [place]/Lambda ratio: 1.22 Specimen(s) Received 1: Serum Protein Electrophoresis 2: Serum IEP Fee Codes(s): 1; 15516-93 2; 32988-43 Clinical Pathology Blood Sme ar Reviewon 09-23-2023 Clinical Pathology Blood Smear Review Normal [facility] Comment on above: Result Comment: [facility] [employer] [facility] [address] [place] [address] Clinical Pathology Report Patient Name:JOSE DAVID:1945 (Age: 78)Gender:FTaken:4Reported:09/26/2023hysician(s):Olga Pan M.D. ([phone])Copy To: Rec. #:[id number]: #[id number] Final Pathologic Diagnosis Peripheral blood smear: Neutrophilic [...] Out hn09/26/2023Og Martinez M.D. Interpretation performed at [employer], [address] [place] [address], License number: [id number]. Clinical History R29.9. BLOOD SMEAR EVALUATION CBC (09/23/2023 0818): WBC = 12.1 X10E9/L; HGB = 9.1 g/dL; HCT = 27.8%; MCV = 85 fL; PLT = 924 X10E9/L OTHER LAB DATA: Noncontributory. BLOOD SMEAR: Leukocytes: Neutrophilic leukocytosis with cytotoxic changes and lymphocytopenia. Erythrocytes: Moderate normocytic normochromic anemia. Platelets: Thrombocytosis. Specimen(s) Received Blood Smear Review Fee Codes(s): 1; [address]2630 Cobalamin (Vitamin B12) [Mas s/Vol]on 09-23-2023 [facility] Comprehensive metabolic pane cole 09-23-2023 Albumin [Mass/Vol] 3.0 g/dL Low 3.2 - 5.3 g/dL [facility] ALP [Catalytic activity/Vol] 227 U/L High 39 - 130 U/L [facility] ALT No additional P-5'-P [Catalytic activity/Vol] 11 U/L 0 - 31 U/L [facility] Anion gap [Moles/Vol] 13 mmol/L 5 - 15 mmol/L [facility] AST [Catalytic activity/Vol] 12 U/L 0 - 41 U/L [facility] Bilirubin [Mass/Vol] 0.6 mg/dL 0.3 - 1 .2 mg/dL [facility] Calcium [Mass/Vol] 8.6 mg/dL 8.5 - 10. 5 mg/dL [facility] Chloride [Moles/Vol] 101 mmol/L 98 - 10 9 mmol/L [facility] CO2 [Moles/Vol] 25 mmol/L 22 - 32 mmol/L [facility] Creatinine [Mass/Vol] 0.49 mg/dL 0.40 - 1.00 mg/dL [facility] Comment on above: METHOD TRACEABLE TO [facility] STANDARD eGFR (CKD-EPI)non-race dependent - PINF [facility] Comment on above: Reported eGFR is based on the CKD-EPI 2020 equation that does not use a race coefficient. Glucose [Mass/Vol] 141 mg/dL High 65 - 99 mg/dL [facility] Potassium [Moles/Vol] 3.7 mmol/L 3.5 - 5.0 mmol/L [facility] Protein [Mass/Vol] 6.9 g/dL 6.0 - 8.0 g/dL [facility] Sodium [Moles/Vol] 139 mmol/L 134 - 146 mmol/L [facility] Urea nitrogen [Mass/Vol] 14 mg/dL 5 - 27 mg/dL [facility] DNA double strand Ab Qn (S)o n 09-23-2023 DOUBLE STRANDED DNA 1 IU/ML Normal <5 [facility] Comment on above: Result Comment: Interpretation-------- <5 Negative 5-9 Indeterminate >9 Positive Performed By: #### C BCA, CMP, 1988-5, FEPR, 2276-4, 2284-8, 88361-1, 2132-9, 72165-7, 67323-6, 5130-0, 64925-2, 07108-0, 48121-6, 3357-1, 2792-9, 20891-7, 79609-8, 59374-8, 83764-5, 45391-5 #### [facility] ([id number]) [address] [place] [address], [address] [place] [address] Direct Coombson 09-23-2023 Polyspecific HENRRY Negative [facility] ESR Photometric method (Bld) [Velocity]on 09-23-2023 Interpretation and review of laboratory results Abnormal [facility] ESR, ERYTHROCYTE SEDIMENTATION RATE 114 mm/h High 0-30 [facility] Comment on above: Performed By: #### C BCA, CMP, 1987-12, FEPR, 6-4, 2284-8, 82133-4, 213-9, 92993-3, 15173-4, 5130-0, 95240-9, 83111-5, 54074-1, 3357-1, 8092-9, 36643-1, 59390-5, 27170-9, 92696-2, 03152-8 #### [facility] ([id number]) [address] [place] [address], [address] [place] [address] Erythrocyte Sedimentation Ra te (ESR)on 09-23-2023 ESR Photometric method (Bld) [Velocity] 114 mm/h High 0 - 30 mm/h [facility] FERRITINon 09-23-2023 Ferritin [Mass/Vol] 478 ng/mL High 11-307 [facility] Comment on above: Performed By: #### C BCA, CMP, 1987-12, FEPR, 6-4, 2284-8, 75248-7, 2131-9, 47312-1, 86854-7, 5130-0, 21629-1, 21255-3, 89210-4, 3357-1, 8092-9, 98399-7, 61732-3, 71827-1, 05289-2, 93831-7 #### [facility] ([id number]) [address] [place] [address], [address] [place] [address] FLOW CYTOMETRYon 09-23-2023 FLOW CYTOMETRY SEE SEPARATE REPORT, REVIEWED BY PATHOLOGIST Normal [facility] Comment on above: Performed By: #### C SHARATH, KELVIN, 1987-12, FEPR, 2276-4, 2284-8, 23380-8, 2132-9, 82506-1, 41533-2, 5130-0, 11327-8, 87590-9, 70642-4, 3357-1, 8092-9, 55531-6, 48410-1, 12874-3, 80776-0, 85037-3 #### [facility] ([id number]) [address] [facility] [place] [address] Ferritinon 09-23-2023 Ferritin [Mass/Vol] 478 ng/mL High 11 - 307 ng/mL [facility] Ferritin [Mass/Vol]on 2023 Interpretation and review of laboratory results Abnormal [facility] Folateon 09-23-2023 Folate [Mass/Vol] 13.0 ng/mL 5.8 - PINF ng/mL [facility] Comment on above: NEW REFERENCE RANGE Folate [Mass/Vol]on 09-23-19 24 [facility] FOLIC ACID 13.0 ng/mL Normal >5.8 [facility] Comment on above: Result Comment: NEW REFERENCE RANGE Performed By: #### C SHARATH, CMP, 1987-12, FEPR, 6-4, 2284-8, 44402-0, 2131-9, 91854-6, 69363-2, 5130-0, 28513-9, 71216-1, 37310-7, 3357-1, 8092-9, 22214-2, 25532-1, 94205-0, 99188-4, 91224-5 #### [facility] ([id number]) [address] [place] [address] Haptoglobinon 09-23-2023 Haptoglobin Nephelometry [Mass/Vol] 613 mg/dL High 32 - 228 mg/dL [facility] Haptoglobin Nephelometry [Ma ss/Vol]on 09-23-2023 Interpretation and review of laboratory results Abnormal [facility] HAPTOGLOBIN 613 mg/dL High 32-228 [facility] Comment on above: Performed By: #### C KELVIN EARLY, 1986-12, FEPR, 2276-4, 2284-8, 51892-2, 2132-9, 55446-7, 92018-9, 5130-0, 68316-4, 26319-7, 23183-3, 3357-1, 8092-9, 63864-8, 10384-3, 02249-0, 65212-0, 08010-8 #### [facility] ([id number]) [address] [place] [address], [address] [place] [address] Hepatitis panel, acuteon HAV IgM IA Ql Non-Reactive Non-Reactiv e^Non-React harshil [facility] HBV core IgM IA Ql Negative Negative^ Ne gative [facility] HBV surface Ag IA Ql Negative Negativ e^Ne [facility] HCV Ab IA Ql Non-Reactive Non-Reactiv e^Non-React harshil [facility] Comment on above: If recent infection suspected, recommend repeat testing (>2 months). Iqufso-ti-mxsnmh ratio is <0.80. [facility] Homocysteine [Moles/Vol]on 0 09-23-2023 HOMOCYSTEINE 9.29 mcmol/L Normal 3.36-20.44 [facility] Comment on above: Performed By: #### C KELVIN EARLY, 1986-12, FEPR, 2276-4, 2284-8, 10042-1, 2132-9, 13966-8, 05713-4, 5130-0, 75143-7, 55270-3, 04975-2, 3357-1, 8092-9, 08548-3, 52068-9, 16203-8, 28209-7, 10743-4 #### [facility] ([id number]) [address] [place] [address], [address] [place] [address] [facility] Homocysteine totalon 024 Homocysteine [Moles/Vol] 9.29 umol/L [facility] IMMUNOELECTROPHORESIS FOR TH NISSAPY MONITORINGon 09-23-2023 FREE KECIA/LAMBD RATIO 1.22 Normal 0.26-1.65 [facility] Comment on above: Performed By: #### C SHARATH, KELVIN, 1986-12, FEPR, 2275-4, 2283-8, 77210-1, 213-9, 77862-4, 46529-1, 5130-0, 90772-5, 94356-7, 50460-5, 3357-1, 8092-9, 16438-0, 76255-9, 59130-4, 72966-2, 88151-8 #### [facility] ([id number]) [address] [place] [address], [address] [place] [address] FREE KAPPA LT CHAINS 2.91 mg/dL High 0.33-1.94 [facility] Comment on above: Performed By: #### C SHARATH, KELVIN, 1986-12, FEPR, 2275-, 2284-8, 86613-5, 213-9, 82841-2, 11053-5, 5130-0, 44703-8, 96948-5, 98356-9, 3357-1, 8092-9, 47650-8, 43079-3, 82563-4, 13213-8, 82183-6 #### [facility] ([id number]) [address], [address] [place] [address] FREE LAMBDA LT CHAINS 2.38 mg/dL Normal 0.57-2.63 [facility] Comment on above: Performed By: #### C SHARATH, KELVIN, 1986-12, FEPR, 2275-4, 2284-8, 98222-3, 2132-9, 37994-4, 26631-2, 5130-0, 19391-4, 33226-5, 28176-9, 3357-1, 8092-9, 26496-3, 24779-4, 27365-2, 42439-4, 44646-9 #### [facility] ([id number]) [address], [address] [place] [address] IgA [Mass/Vol] 180 mg/dL Normal 68-378 [facility] Comment on above: Performed By: #### C BCA, CMP, 1987-12, FEPR, 2275-4, 228-8, 55616-0, 213-9, 53449-1, 23531-3, 5130-0, 02145-9, 07400-3, 50874-8, 3357-1, 8092-9, 28273-3, 27934-8, 29169-9, 36054-1, 70481-4 #### [facility] ([id number]) [address], [address] [place] [address] IgG [Mass/Vol] 992 mg/dL Normal 635-1741 [facility] Comment on above: Performed By: #### C BCA, CMP, 1987-12, FEPR, 2275-4, 2283-8, 87099-9, 213-9, 07470-0, 03949-9, 5130-0, 73895-8, 70203-0, 08248-1, 3357-1, 8092-9, 90232-1, 27466-2, 90090-3, 72406-6, 15209-6 #### [facility] ([id number]) [address], [address] [place] [address] IgM [Mass/Vol] 285 mg/dL High 45-281 [facility] Comment on above: Performed By: #### C BCA, CMP, 1987-12, FEPR, 227-4, 2284-8, 55293-3, 2132-9, 33422-4, 15907-0, 5130-0, 69129-0, 04420-8, 62601-5, 3357-1, 8092-9, 65681-7, 90854-8, 62598-7, 10924-9, 20824-2 #### [facility] ([id number]) [address] [facility] [facility] [facility] [place] [address] IMMUNE PROFILE INTERP SEE SEPARATE REPORT Normal [facility] Comment on above: Performed By: #### C BCA, CMP, 1987-12, FEPR, 2275-4, 228-8, 07446-8, 2131-9, 21137-0, 47787-4, 5130-0, 85480-8, 25962-2, 11887-7, 3357-1, 8092-9, 03964-1, 61477-9, 34052-9, 16413-5, 83471-9 #### [facility] ([id number]) [address] [facility] [place] [address] IRON PROFILEon 09-23-2023 Iron [Mass/Vol] 25 ug/dL Low 50-170 [facility] Comment on above: Performed By: #### C BCA, CMP, 1987-12, FEPR, 2275-4, 2284-8, 38025-8, 2131-9, 33043-5, 45016-9, 5130-0, 23671-9, 86931-1, 37429-7, 3357-1, 8092-9, 61321-9, 94594-6, 09803-2, 79599-1, 66430-9 #### [facility] ([id number]) [address], [address] [place] [address] IRON BINDING 179 ug/dL Low 250-425 [facility] Comment on above: Performed By: #### C BCA, CMP, 1987-12, FEPR, 2275-4, 2284-8, 07067-2, 213-9, 38985-9, 95015-8, 5130-0, 24048-3, 82465-3, 70256-4, 3357-1, 8092-9, 20446-4, 61056-1, 48336-6, 93450-6, 59068-3 #### [facility] ([id number]) [address] [facility], [address] [place] [address] IRON SATURATION 14 % SATURATION Low 15-50 [facility] Comment on above: Performed By: #### C BCA, CMP, 1988-5, FEPR, 2276-4, 2284-8, 86202-1, 2132-9, 32884-3, 61143-0, 5130-0, 27957-5, 18644-6, 53326-8, 3357-1, 8092-9, 44408-0, 43730-3, 43232-5, 89973-2, 42097-4 #### [facility] ([id number]) [facility], [address] [place] [address] Iron and TIBCon 09-23-2023 Interpretation and review of laboratory results Abnormal [facility] Iron [Mass/Vol] 25 ug/dL Low 50 - 170 ug/dL [facility] Iron binding capacity [Mass/Vol] 179 ug/dL Low 250 - 425 ug/dL [facility] Iron saturation [Mass fraction] 14 Low [facility] JAK2 gene p.[id number] [facility] (Bld/Tiss)on 09-23-2023 JAK2 V617F MUTATION, BLOOD SEE COMMENTS 09/26/2023 10:21 AM Normal [facility] Comment on above: Result Comment: NOTE Test Result Flag Unit RefValue ----- JAK2 V617F Mutation Detection, B JAK2 Result see interpretation JAK2 V617F Mutation Detection, B See Note Peripheral blood, JAK2 V617F mutation analysis: Negative for JAK2 V617F. A negative [id number] test result does not exclude the possibility [...] been determined at 0.06% (see [facility] Interpretive Handbook for method details). This test was developed and its performance characteristics determined by [facility] in a manner consistent with CLIA requirements. This test has not been cleared or approved by the U.S. Food and Drug Administration. Test Performed by: [place] [address] Marshmallow Runner: Thierry Duran M.D. Ph.D.; CLIA# [id number] Performed By: #### C BCA, CMP, 1988-5, FEPR, 2276-4, 2284-8, 82965-3, 2132-9, 11762-8, 41219-7, 5130-0, 74316-5, 44900-0, 46022-2, 3357-1, 8092-9, 65164-6, 57672-7, 07217-1, 06462-6, 58970-6 #### [facility] ([id number]) [address] [place] [address], [address] [place] [id number] Tiki 1 AB IGGon 09-23-2023 Anileridine Ql (U) NINF [facility] LDHon 09-23-2023 LDH [Catalytic activity/Vol] 140 U/L 100 - 235 U/L [facility] LDH [Catalytic activity/Vol] on 09-23-2023 [facility] LDH 140 U/L Normal 100-235 [facility] Comment on above: Performed By: #### C BCA, CMP, 1988-5, FEPR, 2276-4, 2284-8, 07560-3, 2132-9, 74524-2, 82622-3, 5130-0, 68608-7, 52212-8, 59375-7, 3357-1, 8092-9, 63218-6, 37340-4, 94922-0, 76083-1, 13151-7 #### [facility] ([id number]) [address] [place] [address], [address] [place] [address] Methylmalonate [Moles/Vol]on 09-23-2023 MMA QN 0.23 umol/L Normal <=0.40 [facility] Comment on above: Result Comment: NOTE This test was developed and its performance characteristics determined by [facility] [place] ([facility]). It has not been cleared or approved by the FDA. [facility] is regulated under CLIA as qualified to perform high-complexity testing. This test is used for clinical purposes. It should not be regarded as investigational or for research. Test Performed By: [facility] [address] [place] [address] Track Production Engineer: Meño Hernandez III, M.D. [place] #[id number] Narrative diagnostic report [employer] [facility] (Bld/Tiss) [Interp]on 09-23-2023 BCR/ABL PCR w/Reflex SEE COMMENTS 2023 04:24 PM Normal [facility] Comment on above: Result Comment: NOTE Test Result Flag Unit RefValue ----- BCR/ABL1 Reflex, Qual/Quant Specimen Type EDTA WHOLE BLOOD BCR/ABL1 Reflex Result see interpretation Interpretation See Note Peripheral blood, BCR/ABL1 mRNA analysis, qualitative: Negative. No BCR/ABL1 mRNA transcripts were detected. Method summary: The presence or absence of BCR/ABL1 mRNA transcripts was evaluated using a qualitative, reverse supervisor plasma PCR-based assay. The assay detects nearly all published and theoretical BCR/ABL1 fusion forms including the common e13/e14-a2 (p210) and e1-a2 (p190) transcripts, as well as other rarer variants (e.g. e19-a2 (p230), e13/e14-a3, e1-a3, etc.). The limit of detection for this assay is 0.1%. Please contact the lab at [phone] with questions or if additional testing is required. See [facility] [employer] Test Catalog for additional method details. Signing Pathologist: Ammon Titus M.D. (Jane), Ph.D. ADDITIONAL INFORMATION This test was developed and its performance characteristics determined by [facility] in a manner consistent with CLIA requirements. This test has not been cleared or approved by the U.S. Food and Drug Administration. Test Performed by: [facility] [place] [address] Marshmallow Runner: Thierry Duran M.D. Ph.D.; CLIA# [id number] Neutrophil cytoplasmic Ab IF Ql (S)on 09-23-2023 ANCA See Below Normal [facility] Comment on above: Result Comment: NOTE [...] results and clinical correlation. Test Performed By: [facility] [address] [place] [address] Track Production Engineer: Meño Hernandez III, M.D. IA #[id number] No Panel Informationon 09-23 [facility] Interpretation and review of laboratory results Abnormal [facility] Nuclear Ab IA Ql (S)on 09-23 Interpretation and review of laboratory results Abnormal [facility] SILVIA Screen w/reflex Positive Abnormal NEG [facility] Comment on above: Result Comment: Testing performed using multiplex flow immunoassay. Eleven different antigens associated with systemic autoimmune diseases (dsDNA,Sm,Sm/EQUIPMENT OPERAT0R,EQUIPMENT OPERAT0R,Chromatin, SSA,SSB,Tiki-1,Scl70,Ribo P,Centromere B) are included in this screening test. Performed By: #### C BCA, CMP, 1988-5, FEPR, 2276-4, 2284-8, 22813-4, 2132-9, 83815-2, 13171-5, 5130-0, 39477-4, 65235-5, 24187-8, 3357-1, 8092-9, 47921-1, 67991-4, 33426-9, 18778-4, 60957-1 #### [facility] ([id number]) [address] [place] [address], [address] [place] [address] comment (Bld) [Interp]on 09-23-2023 STAFF REVIEW NOTE Normal [facility] Comment on above: Result Comment: [facility] [employer] [facility] [address] [place] [address] Clinical Pathology Report Patient Name:JOSE DAVID:1945 (Age: 78)Gender:FTaken:4Reported:09/26/2023hysician(s):Olga Pan M.D. ([phone])Copy To: Rec. #:[id number]: #[id number] Final Pathologic Diagnosis Peripheral blood smear: Neutrophilic [...] Out hna/09/26/2023Og Martinez M.D. Interpretation performed at [facility], [address] [place] [address], License number: [id number]. Clinical History R29.9. BLOOD SMEAR EVALUATION CBC (09/23/2023 0818): WBC = 12.1 X10E9/L; HGB = 9.1 g/dL; HCT = 27.8%; MCV = 85 fL; PLT = 924 X10E9/L OTHER LAB DATA: Noncontributory. BLOOD SMEAR: Leukocytes: Neutrophilic leukocytosis with cytotoxic changes and lymphocytopenia. Erythrocytes: Moderate normocytic normochromic anemia. Platelets: Thrombocytosis. Specimen(s) Received Blood Smear Review Fee Codes(s): 1; 44069 Performed By: #### C BCA, CMP, 1987-5, FEPR, 2276-4, 2284-8, 61474-0, 2132-9, 02078-2, 84223-4, 5130-0, 09478-6, 67043-9, 51074-8, 3357-1, 8092-9, 33245-4, 65177-3, 25916-4, 24875-6, 10102-6 #### [facility] ([id number]) [address] [place] [address], [address] [place] [address] EQUIPMENT OPERAT0R AB IgGon 09-23-2023 Ribonucleoprotein extractable nuclear IgG Qn (S) [facility] Comment on above: CLIA ID [id number] Rheumatoid factoron 09-23-19 24 Rheumatoid factor Nephelometry Qn (S) 21 High NINF [facility] Rheumatoid factor Nephelomet ry Qn (S)on 09-23-2023 Interpretation and review of laboratory results Abnormal [facility] RHEUMATOID FACTOR 21 IU/mL High <20 [facility] Comment on above: Performed By: #### C BCA, CMP, 1987-, FEPR, 2276-4, 2284-8, 15990-5, 2132-9, 34670-5, 44449-8, 5130-0, 03749-1, 63346-9, 94783-7, 3357-1, 8092-9, 19758-2, 82699-9, 41532-8, 83523-5, 42186-7 #### [facility] ([id number]) [facility]0 [facility], [address] [place] [address] Ribonucleoprotein extractabl e nuclear IgG Qn (S)on 09-23-2023 EQUIPMENT OPERAT0R ANTIBODY IGG <0.2 Normal <1.0 [facility] Comment on above: Performed By: #### C BCA, CMP, 1987-12, FEPR, 2276-4, 2284-8, 62485-3, 2131-9, 92076-6, 01799-8, 5130-0, 48979-4, 57368-8, 85794-4, 3357-1, 8092-9, 89623-2, 34922-8, 49117-7, 47449-2, 79442-0 #### [facility] ([id number]) [address] [place] [address], [address] [place] [address] Ribosomal P IgG Qn (S)on RIBOSOME P ANTIBODY <0.2 Normal <1.0 [facility] Comment on above: Performed By: #### C BCA, CMP, 1987-12, FEPR, 2276-4, 2284-8, 09781-2, 2132-9, 86413-4, 01704-6, 5130-0, 77753-5, 62892-0, 70998-5, 3357-1, 8092-9, 92130-6, 24156-1, 61609-7, 92264-1, 86318-7 #### [facility] ([id number]) [address] [place] [address], [address] [place] [address] SCL-70 extractable nuclear A b Ql (S)on 09-23-2023 SCL 70 ANTIBODY <0.2 Normal <1.0 [facility] Comment on above: Performed By: #### C BCA, CMP, 1987-12, FEPR, 2275-4, 2284-8, 89103-5, 2132-9, 23736-3, 08948-1, 5130-0, 83459-8, 13569-7, 78043-1, 3357-1, 8092-9, 79578-8, 28404-2, 85555-5, 87803-8, 35940-4 #### [facility] ([id number]) [address] [place] [address], [address] [place] [address] SERUM PROTEIN ELECTROPHORESI Son 09-23-2023 Albumin [Mass/Vol] 2.5 g/dL Low 3.4-5.3 [facility] Comment on above: Performed By: #### C BCA, CMP, 1987-12, FEPR, 2275-4, 228-8, 84183-3, 2132-9, 04098-1, 23790-4, 5130-0, 04190-1, 32123-7, 14365-1, 3357-1, 8092-9, 76291-8, 51200-7, 27818-5, 10737-1, 02797-7 #### [facility] ([id number]) [address] [place] [address], [address] [place] [address] ALPHA 1 GLOBULIN 0.6 g/dL High 0.1-0.4 [facility] Comment on above: Performed By: #### C SHARATH, KELVIN, 1987-12, FEPR, 2276-4, 2284-8, 08391-1, 2132-9, 62255-5, 47593-5, 5130-0, 74421-5, 02433-9, 67017-1, 3357-1, 8092-9, 31581-3, 45786-7, 47703-8, 29120-2, 96024-7 #### [facility] ([id number]) [address] [place] [address] ALPHA 2 GLOBULIN 1.2 g/dL High 0.4-1.1 [facility] Comment on above: Performed By: #### C SHARATH, KELVIN, 1987-12, FEPR, 2275-4, 4-8, 37361-6, 2132-9, 10522-4, 29168-2, 5130-0, 35749-5, 73739-5, 38394-3, 3357-1, 8092-9, 03570-0, 81111-3, 92733-9, 29753-9, 47625-7 #### [facility] ([id number]) [address] [place] [address] BETA GLOBULIN 0.8 g/dL Normal 0.5-1.2 [facility] Comment on above: Performed By: #### C SHARATH, KELVIN, 1987-12, FEPR, 2275-4, 2284-8, 21486-0, 2132-9, 74001-3, 11120-8, 5130-0, 25843-5, 36998-9, 88390-8, 3357-1, 8092-9, 91663-0, 48778-4, 60029-9, 14754-6, 83614-9 #### [facility] ([id number]) [address], [address] [place] [address] GAMMA GLOBULIN 1.0 g/dL Normal 0.5-1.6 [facility] Comment on above: Performed By: #### C SHARATH, CMP, 1987-12, FEPR, 2276-4, 2284-8, 11525-6, 2132-9, 87859-2, 86360-3, 5130-0, 13654-0, 97223-7, 64094-5, 3357-1, 8092-9, 31734-6, 71331-0, 43921-2, 33091-2, 79569-6 #### [facility] ([id number]) [address] [place] [address], [facility] [address] [place] [address] PROT. ELECTROPHORESIS INTERP SEE SEPARATE REPORT Normal [facility] Comment on above: Performed By: #### C SHARATH, CMP, 1987-12, FEPR, 2275-4, 2284-8, 78200-5, 2132-9, 17630-7, 67887-1, 5130-0, 10442-4, 15398-6, 06043-1, 3357-1, 8092-9, 36846-4, 10911-4, 28869-2, 26733-3, 71212-2 #### [facility] ([id number]) [facility], [facility] [address] [place] [address] Protein [Mass/Vol] 6.1 g/dL Normal 6.0-8.0 [facility] Comment on above: Performed By: #### C BCA, CMP, 1987-12, FEPR, 227-4, 2284-8, 51126-7, 2132-9, 22751-9, 94491-4, 5130-0, 66906-1, 24327-0, 75186-8, 3357-1, 8092-9, 62299-1, 79461-5, 65712-4, 98674-2, 97291-3 #### [facility] ([id number]) [address] [place] [address], [address] [place] [address] SSA antibodyon 09-23-2023 Sjogrens syndrome-A extractable nuclear Ab Qn (S) [facility] Comment on above: CLIA ID [id number] SSB Antibodyon 09-23-2023 Sjogrens syndrome-B extractable nuclear IgG Qn (S) [facility] Comment on above: CLIA ID [id number] Scleroderma antibodyon 09-23 SCL-70 extractable nuclear Ab Ql (S) [facility] Comment on above: CLIA ID [id number] Sjogrens syndrome-A extracta ble nuclear Ab Qn (S)on 09-23-2023 SSA ANTIBODY <0.2 Normal <1.0 [facility] Comment on above: Performed By: #### C BCA, CMP, 1987-12, FEPR, 2276-4, 2284-8, 04953-0, 2131-9, 48389-2, 82007-0, 5130-0, 25781-6, 49522-9, 09042-5, 3357-1, 8092-9, 73074-1, 14392-9, 99841-7, 93479-8, 13387-3 #### [facility] ([id number]) [address] [place] [address], [address] [place] [address] Sjogrens syndrome-B extracta ble nuclear IgG Qn (S)on 09-23-2023 SSB ANTIBODY <0.2 Normal <1.0 [facility] Comment on above: Performed By: #### C BCA, CMP, 1987-12, FEPR, 2276-4, 2284-8, 90095-2, 2132-9, 05908-0, 55091-9, 5130-0, 10454-5, 28972-3, 73974-4, 3357-1, 8092-9, 61196-4, 77207-6, 37753-4, 24626-6, 18537-2 #### [facility] ([id number]) [address] [place] [address], [address] [place] [address] Mejia extractable nuclear Ab +Ribonucleoprotein extractable nuclear IgG Qn (S)on 09-23-2023 MEJIA/EQUIPMENT OPERAT0R AB IGG <0.2 Normal <1.0 [facility] Comment on above: Performed By: #### C BCA, CMP, 1987-, FEPR, 2276-4, 2284-8, 46858-0, 2132-9, 81160-9, 85873-0, 5130-0, 60002-5, 64014-7, 65680-2, 3357-1, 8092-9, 41652-3, 47853-8, 48486-6, 29739-8, 99140-0 #### [facility] ([id number]) [address] [place] [address], [address] [place] [address] Mejia extractable nuclear Ig G Qn (S)on 09-23-2023 ANTI-MEJIA AB IGG <0.2 Normal <1.0 [facility] Comment on above: Performed By: #### C BCA, CMP, 1987-12, FEPR, 2276-4, 2284-8, 04814-2, 2132-9, 67257-2, 16555-3, 5130-0, 79361-5, 89597-4, 35984-2, 3357-1, 8092-9, 95568-2, 62538-1, 41193-1, 52701-1, 86049-0 #### [facility] ([id number]) [address] [place] [address], [address] [place] [address] Mejia/EQUIPMENT OPERAT0R AB IgGon 4 Mejia extractable nuclear Ab+Ribonucleoprotein extractable nuclear IgG Qn (S) [facility] Surgical Pathologyon 024 Surgical Pathology Normal [facility] Comment on above: Result Comment: [facility] [employer] [facility] [address] [place], [place] [address] Flow Cytometry Patient Name:JOSE DAVIDAccession #:[id number]. Rec. #:[id number]:[facility] HospitalTaken:09/23/2023OB:1945 (Age: 78)Location:TTH GEN 8 ACUTE P691Nbxltcym:09/23/2023Gender: FBill. Type:ToledoReported:Priority:RBilling #:[id number] Class:TTH Special Procedure OnlyPhysician(s): Charlene Chan MD [...] patterns of antigen expression are not seen. [place] on the lymphoid population demonstrates a mixed population of phenotypically unremarkable T-cells, natural killer cells, and polyclonal B-cells, without a detectable monoclonal population. Immunophenotyping antibodies tested: CD2, CD3, CD4, CD5, CD7, CD8, CD10, CD13, CD16, CD19, CD20, CD23, CD33, CD34, CD38, CD43, CD45, CD56, CD117, CD123, CD138, [place], and Lambda. Immunophenotyping Comment: Immunophenotyping has been used in this diagnostic evaluation. This test was developed and its performance characteristics determined by the [facility] Department. It has not [...] (Vitamin B12) [Mass/Vol] 248 pg/mL Normal 180-914 [facility] Comment on above: Performed By: #### C BCA, CMP, 1987-, FEPR, 2276-4, 2284-8, 33087-4, 2132-9, 61180-9, 46893-6, 5130-0, 72242-4, 42413-0, 74468-8, 3357-1, 8092-9, 45269-7, 70557-3, 08745-8, 12382-4, 91812-8 #### [facility] ([id number]) [address] [facility], [address] [place] [address] Vitamin B12on 09-23-2023 Cobalamin (Vitamin B12) [Mass/Vol] 248 pg/mL 180 - 914 pg/mL [facility] dRVVT/dRVVT.excess phospholi pid Coag (PPP) [Ratio]on 09-23-2023 DILUTE KORI'S VIPER VENOM Negative Normal [facility] Comment on above: Performed By: #### C BCA, CMP, 1987-12, FEPR, 2276-4, 2284-8, 06836-9, 2132-9, 27769-4, 48150-0, 5130-0, 27752-9, 13373-5, 25912-0, 3357-1, 8092-9, 74305-0, 90285-0, 37931-3, 48705-3, 65407-3 #### [facility] ([id number]) [address] [place] [address], [address] [place] [address] CT CSPINE WO CONon 3 CT CSPINE [...] by: SHANTELL GARCIA Date: 2022-12-25 08:22 Normal [facility] XR KNEE RT 4V or >on [...] lateral and patellofemoral compartments where there is haik-jl-cecq contact. 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 Electronically authenticated by: KARAN JENKINS Date: 2022-04-25 19:06 Normal [facility] Patient Educationon 09-10-19 Patient Education Nutrition [...] height. This can be done either in [place]riot (U.[place].) or metric measurements. Note that charts are available to help you find your BMI quickly and easily without having to do these calculations yourself. To calculate your BMI in [place] ([place] measurements, your health care provider will: [...] problems. ? BMI can be measured using Cypriot measurements or metric measurements. ? To interpret [...] 04/22/2005 Document Revised: 07/24/2018 Document Reviewed: 06/24/2018 [employer] Patient Education ? 2019 [employer] Obstetrics and Gynecology Overactive Bladder, Adult [...] A spina (more content not included)... 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 [place] [address]- Additional Instructions: Patient Education BMI for Adults [...] Protein Urine Dipstick: Negative (09/10/21 08:26:00) Specific [place] Urine Dipstick: 1.025 (09/10/21 08:26:00) Urine Appearance Urine Dipstick: Clear (09/10/21 08:26:00) Urine Color Urine Dipstick: Yellow (09/10/21 08:26:00) Urobilinogen Urine Dipstick: Normal 0.2-1 EU/dl (09/10/21 08:26:00) pH Urine Dipstick: 5 (09/10/21 08:26:00) Normal [facility] Comment on above: Result Comment: Elec tronically Signed By: DONY SENIOR, Gilbert Moore\.br\Date and Time Signed: 09/10/21 08:49 EST\.br\Electronically Co-Signed By: Aurora Hdz MA\.br\Date and Time Co-Signed: 09/10/21 08:46 EST Physician Orderon 09-07-2021 Physician Order [id number]#1.00C D:127 Normal [facility] Vital Signs Date Time Vital Sign Value Performing Clinician Facility 10-13-2024 14:35-0500 Body height 152.4 cm [facility] 10-13-2024 14:35-0500 Body mass index (BMI) [Ratio] 26.4 kg/m2 [facility] 10-13-2024 14:35-0500 Body temperature 96 [degF] [facility] 10-13-2024 14:35-0500 Body weight 61.46 kg [facility] 10-13-2024 14:35-0500 Diastolic blood pressure 80 mm[Hg] [facility] 10-13-2024 14:35-0500 Heart rate 82 /min [facility] 10-13-2024 14:35-0500 SaO2% (BldA) [Mass fraction] 97 % [facility] 10-13-2024 14:35-0500 Systolic blood pressure 126 mm[Hg] [facility] 10-11-2024 09:31-0500 Body height 157.5 cm Myra Cota APRN-RIVKA Work Phone: [facility] 10-11-2024 09:31-0500 Body mass index (BMI) [Ratio] 24.58 kg/m2 Myra Samy [employer] Work Phone: [facility] 10-11-2024 09:31-0500 Body temperature 97.81 [degF] Myra Samy [employer] Work Phone: [facility] 10-11-2024 09:31-0500 Body weight 60.96 kg Myra Samy [employer] Work Phone: [facility] 10-11-2024 09:31-0500 Diastolic blood pressure 76 mm[Hg] Myra Samy [employer] Work Phone: [facility] 10-11-2024 09:31-0500 Heart rate 76 /min Myra Samy [employer] Work Phone: [facility] 10-11-2024 09:31-0500 Respiratory rate 18 /min Myra Samy [employer] Work Phone: [facility] 10-11-2024 09:31-0500 SaO2% (BldA) [Mass fraction] 100 % Ymra Samy [employer] Work Phone: [facility] 10-11-2024 09:31-0500 Systolic blood pressure 152 mm[Hg] Myra Samy [employer] Work Phone: [facility] 07-12-2024 13:05-0500 Body height 152.4 cm [facility] 07-12-2024 13:05-0500 Body mass index (BMI) [Ratio] 26 kg/m2 [facility] 07-12-2024 13:05-0500 Body temperature 97.3 [degF] [facility] 07-12-2024 13:05-0500 Body weight 60.44 kg [facility] 07-12-2024 13:05-0500 Diastolic blood pressure 72 mm[Hg] [facility] [facility] 13:05-0500 Heart rate 90 /min [facility] 07-12-2024 13:05-0500 SaO2% (BldA) [Mass fraction] 96 % [facility] 07-12-2024 13:05-0500 Systolic blood pressure 118 mm[Hg] [facility] 04-13-2024 10:47-0400 Body height 152.4 cm [facility] 04-13-2024 10:47-0400 Body mass index (BMI) [Ratio] 25.7 kg/m2 [facility] 04-13-2024 10:47-0400 Body weight 59.87 kg [facility] 04-13-2024 10:47-0400 Diastolic blood pressure 76 mm[Hg] [facility] 04-13-2024 10:47-0400 Heart rate 81 /min [facility] 04-13-2024 10:47-0400 SaO2% (BldA) [Mass fraction] 99 % [facility] 04-13-2024 10:47-0400 Systolic blood pressure 122 mm[Hg] [facility] 02-05-2024 11:56-0400 Body mass index (BMI) [Ratio] 23.92 kg/m2 Mouna Bautista MD Work Phone: [facility] 02-05-2024 11:56-0400 Body weight 59.33 kg Mouna Bautista MD Work Phone: [facility] 02-05-2024 11:56-0400 Diastolic blood pressure 81 mm[Hg] Mouna Bautista MD Work Phone: [facility] 02-05-2024 11:56-0400 Heart rate 78 /min Mouna Bautista MD Work Phone: [facility] 02-05-2024 11:56-0400 SaO2% (BldA) [Mass fraction] 96 % Mouna Bautista MD Work Phone: [facility] 02-05-2024 11:56-0400 Systolic blood pressure 136 mm[Hg] Mouna Bautista MD Work Phone: [facility] 01-02-2024 13:46-0400 Body height 157.5 cm Mahnaz Ochoa MD Work Phone: [facility] 01-02-2024 13:46-0400 Body mass index (BMI) [Ratio] 23.5 kg/m2 Mahnaz Ochoa MD Work Phone: [facility] 01-02-2024 13:46-0400 Body weight 58.29 kg Mahnaz Ochoa MD Work Phone: [facility] 01-02-2024 13:46-0400 Diastolic blood pressure 86 mm[Hg] Mahnaz Ochoa MD Work Phone: [facility] 01-02-2024 13:46-0400 Heart rate 86 /min Mahnaz Ochoa MD Work Phone: [facility] 01-02-2024 13:46-0400 Systolic blood pressure 152 mm[Hg] Mahnaz Ochoa MD Work Phone: [facility] 12-29-2023 09:05-0400 Body height 152.4 cm [facility] 12-29-2023 09:05-0400 Body mass index (BMI) [Ratio] 25.4 kg/m2 [facility] 12-29-2023 09:05-0400 Body temperature 97.5 [degF] [facility] 12-29-2023 09:05-0400 Body weight 58.96 kg [facility] 12-29-2023 09:05-0400 Heart rate 86 /min [facility] 12-29-2023 09:05-0400 Respiratory rate 16 /min [facility] 12-29-2023 09:05-0400 SaO2% (BldA) [Mass fraction] 96 % [facility] 11-06-2023 15:01-0400 Body height 157.5 cm Allie Hoskins MD Work Phone: [facility] 11-06-2023 15:01-0400 Body mass index (BMI) [Ratio] 22.09 kg/m2 Allie Hoskins MD Work Phone: [facility] 11-06-2023 15:01-0400 Body temperature 98.6 [degF] Allie Hoskins MD Work Phone: [facility] 11-06-2023 15:01-0400 Body weight 54.8 kg Allie Hoskins MD Work Phone: [facility] 11-06-2023 15:01-0400 Diastolic blood pressure 65 mm[Hg] Allie Hsokins MD Work Phone: [facility] 11-06-2023 15:01-0400 Heart rate 109 /min Allie Hoskins MD Work Phone: [facility] 11-06-2023 15:01-0400 Respiratory rate 24 /min Allie Hoskins MD Work Phone: [facility] 11-06-2023 15:01-0400 SaO2% (BldA) [Mass fraction] 97 % Allie Hoskins MD Work Phone: [facility] 11-06-2023 15:01-0400 Systolic blood pressure 151 mm[Hg] Allie Hoskins MD Work Phone: [facility] 10-16-2023 11:04-0500 Body height 152.4 cm [facility] 10-16-2023 11:04-0500 Body mass index (BMI) [Ratio] 23.6 kg/m2 [facility] 10-16-2023 11:04-0500 Body weight 54.88 kg [facility] 10-16-2023 11:04-0500 Diastolic blood pressure 72 mm[Hg] [facility] 10-16-2023 11:04-0500 Heart rate 88 /min [facility] 10-16-2023 11:04-0500 SaO2% (BldA) [Mass fraction] 98 % [facility] 10-16-2023 11:04-0500 Systolic blood pressure 134 mm[Hg] [facility] 10-16-2023 09:50-0500 Diastolic blood pressure 74 mm[Hg] Mouna Bautista MD Work Phone: [facility] 10-16-2023 09:50-0500 Heart rate 72 /min Mouna Bautista MD Work Phone: [facility] 10-16-2023 09:50-0500 Systolic blood pressure 140 mm[Hg] Mouna Bautista MD Work Phone: [facility] 10-16-2023 09:49-0500 Body height 157.5 cm Mouna Bautista MD Work Phone: [facility] 10-16-2023 09:49-0500 Body mass index (BMI) [Ratio] 21.51 kg/m2 Mouna Bautista MD Work Phone: [facility] 10-16-2023 09:49-0500 Body weight 53.34 kg Mouna Bautista MD Work Phone: [facility] 10-16-2023 09:49-0500 Respiratory rate 18 /min Mouna Bautista MD Work Phone: [facility] 09-26-2023 15:31-0500 Body temperature 98.2 [degF] Bart Milian MD Work Phone: [facility] 09-26-2023 15:31-0500 Heart rate 103 /min Bart Milian MD Work Phone: [facility] 09-26-2023 15:31-0500 Respiratory rate 16 /min Bart Milian MD Work Phone: [facility] 09-26-2023 15:31-0500 SaO2% (BldA) [Mass fraction] 96 % Bart Milian MD Work Phone: [facility] 09-26-2023 07:20-0500 Diastolic blood pressure 84 mm[Hg] Bart Milian MD Work Phone: [facility] 09-26-2023 07:20-0500 Systolic blood pressure 152 mm[Hg] Bart Milian MD Work Phone: [facility] 09-24-2023 13:40-0500 Body height 157.5 cm Bart Milian MD Work Phone: [facility] 09-24-2023 13:40-0500 Body mass index (BMI) [Ratio] 21.21 kg/m2 Bart Milian MD Work Phone: [facility] 09-24-2023 13:40-0500 Body weight 52.6 kg Bart Milian MD Work Phone: [facility] Encounters Encounter Date Encounter Type Care Provider Facility Start: 10-13-2024 End: 10-13-2024 ambulatory [facility] Work Phone: Start: 10-13-2024 End: 10-13-2024 Patient encounter procedure [facility] Work Phone: Start: 10-11-2024 End: 10-11-2024 Office outpatient visit 40 minutes Myra Cota APRN-SENIOR GL ACCOUNTANT Work Phone: [facility] Comment on above: Normocytic anemia (P rimary Dx); Thrombocytosis; Anemia, unspecified type; Iron deficiency; Giant cell arteritis ([facility]); Vision blurred Start: 10-11-2024 End: 10-11-2024 ambulatory MYRA COTA [facility] Start: 10-06-2024 End: 10-06-2024 [facility] Start: 09-02-2024 Non-patient / Non-visit [facility] Work Phone: Start: 07-16-2024 End: 07-16-2024 Patient encounter procedure [facility] Work Phone: Start: 07-12-2024 End: 07-12-2024 ambulatory [facility] Work Phone: Start: 07-12-2024 End: 07-12-2024 Patient encounter procedure [facility] Work Phone: Start: 07-07-2024 Non-patient / Non-visit [facility] Work Phone: Start: 05-05-2024 End: 05-05-[address] [facility] Start: 04-30-2024 Non-patient / Non-visit [facility] Work Phone: Start: 04-14-2024 Patient encounter procedure [facility] Start: 04-13-2024 End: 04-13-2024 ambulatory [facility] Work Phone: Start: 04-13-2024 End: 04-13-2024 Patient encounter procedure [facility] Work Phone: Start: 03-08-2024 End: 03-08-2024 Orders Only Roxie aguiar [place] - [facility] Comment on above: Normocytic anemia (P rimary Dx); Thrombocytosis; Anemia, unspecified type Start: 03-05-2024 Non-patient / Non-visit [facility] Work Phone: Start: 02-05-2024 End: 02-05-2024 Office outpatient visit 10 minutes Mouna Bautista MD Work Phone: [facility] Comment on above: Giant cell arteritis ([facility]) (Primary Dx) Start: 02-05-2024 ambulatory MOUNA BAUTISTA [facility] Start: 01-28-2024 End: 01-28-[address] [facility] Start: 01-02-2024 End: 01-02-2024 ambulatory MAHNAZYogesh OCHOA [facility] Start: 01-02-2024 End: 01-02-2024 Office outpatient visit 25 minutes Mahnaz Ochoa MD Work Phone: [facility] Comment on above: Giant cell arteritis (CMS-HCC) (Primary Dx) Start: 12-29-2023 End: 12-29-2023 ambulatory [facility] Work Phone: Start: 12-29-2023 End: 12-29-2023 Patient encounter procedure [facility] Work Phone: Start: 12-29-2023 Non-patient / Non-visit [facility] Work Phone: Start: 11-26-2023 End: 11-26-2023 ambulatory JT Kline [facility] Start: 11-06-2023 End: 11-06-2023 Office outpatient visit 40 minutes Allie Hoskins MD Work Phone: [facility] Comment on above: Normocytic anemia (P rimary Dx); Thrombocytosis Start: 11-06-2023 Orders Only Malinda Arrington RN [facility] Comment on above: Giant cell arteritis (CMS-HCC) (Primary Dx); Stroke-like symptoms; Vision blurred; Anemia, unspecified type Start: 10-30-2023 Non-patient / Non-visit [facility] Work Phone: Start: 10-17-2023 Telephone encounter Beronica Loya [facility] Comment on above: Med Refill Start: 10-16-2023 End: 10-16-2023 ambulatory [facility] Work Phone: Start: 10-16-2023 End: 10-16-2023 Patient encounter procedure [facility] Work Phone: Start: 10-16-2023 End: 10-16-2023 ambulatory MOUNA BAUTISTA [facility] Start: 10-16-2023 End: 10-16-2023 Office outpatient visit 15 minutes Mouna Bautista MD Work Phone: [facility] Comment on above: Giant cell arteritis ([facility]) (Primary Dx) Start: 09-29-2023 Telephone encounter [facility] Comment on above: Hospital Follow-up Start: 09-27-2023 End: 09-27-2023 Evaluation and management of inpatient RICKIE STEWART [facility] Start: 09-24-2023 End: 09-27-2023 Evaluation and management of inpatient TREVNI LÓPEZ [facility] Start: 09-24-2023 End: 09-27-2023 Evaluation and management of [facility] Start: 09-24-2023 ambulatory JOHN PATEL [facility] Start: 09-23-2023 End: 09-26-2023 Evaluation and management of inpatient [facility] Start: 09-23-2023 End: 09-26-2023 Evaluation and management of inpatient Tono Pan MD Work Phone: [facility] - GEN 8 Acute Comment on above: B12 deficiency (Prim lisa Dx); Thrombocytosis; Vision blurred; Temporal arteritis ([facility]) Start: 03-24-2023 End: 03-25-2023 ambulatory Naomy Lujan MD Facility: [facility] Start: 03-10-2023 End: 03-11-2023 ambulatory Naomy Lujan MD Facility: [facility] Start: 03-03-2023 End: 03-04-2023 ambulatory Naomy Lujan MD Facility: [facility] Start: 02-17-2023 End: 02-18-2023 ambulatory Naomy Lujan MD Facility: [facility] Start: 02-03-2023 End: 02-04-2023 ambulatory Naomy Lujan MD Facility: [facility] Start: 01-24-2023 End: 01-25-2023 ambulatory Naomy Lujan MD Facility: [facility] Start: 12-25-2022 End: 12-25-[address] PATO [...] Phone: Start: 09-23-2023 Bcr/abl1 major breakpnt qualitative/quantitative Oktibbeha Hinders [employer]-SENIOR GL ACCOUNTANT Work Phone: Start: 09-23-2023 Antihuman globulin direct each antiserum Oktibbeha Hinders [employer] PLANT TREATER-SENIOR GL ACCOUNTANT Work Phone: Start: 09-23-2023 ANCA Trevin López MD Work Phone: Start: 09-23-2023 Assay of haptoglobin quantitative Tono Pan MD Work Phone: Start: 09-23-2023 Beta 2 glycoprotein i antibody each Tono Pan MD Work Phone: Start: 01-30-2024 Blood count complete auto&auto difrntl wbc Bart Milian MD Work Phone: Start: 09-23-2023 CLINICAL PATHOLOGY BLOOD SMEAR REVIEW Bart Milian MD Work Phone: Start: 09-23-2023 Jak2 gene analysis [id number] variant Bart Milian MD Work Phone: Start: [...] Author Start: 10-11-2025 Tobacco Screening Tobacco Screening [facility] Start: 03-08-2025 Adult BMI Screening Adult BMI Screening [facility] Start: 02-04-2025 Adult BMI Screening Adult BMI Screening [facility] Start: 02-04-2025 Tobacco Screening Tobacco Screening [facility] Start: 01-01-2025 Adult BMI Screening Adult BMI Screening [facility] Start: 01-01-2025 Tobacco Screening Tobacco Screening [facility] Start: 12-10-2024 End: 12-10-2024 Patient encounter procedure 12/10/2024 2:30 PM EDT Office Visit [facility] [address] [place] [phone] Allie Hoskins MD [address] [place] [address] [address] [place], [place] [id number] [facility] [place] [facility] Start: 11-05-2024 Adult BMI Screening Adult BMI Screening [facility] Start: 10-16-2024 Adult BMI Screening Adult BMI Screening [facility] Start: 10-16-2024 Tobacco Screening Tobacco Screening [facility] Start: 09-24-2024 Adult BMI Screening Adult BMI Screening [facility] Start: 09-24-2024 Tobacco Screening Tobacco Screening [facility] Start: 09-23-2024 Depression Screening Depression Screening [facility] Start: 09-09-2024 End: 09-09-2024 Patient encounter procedure 09/09/2024 1:15 PM EST Office Visit Adelaida Hobbs [facility] - Medical Oncology [facility] [place] [address] Allie Hoskins MD [address] [place] [address] Adelaida L [facility] Start: 04-25-2024 Influenza vaccination Influenza Vaccine [facility] Start: 03-05-2024 End: 03-05-2024 Patient encounter procedure 03/05/2024 2:15 PM EDT Office Visit Adelaida Hobbs [facility] [address] [place] [phone] Allie Hoskins MD [address] [place] [address] Adelaida L [facility] Start: 02-05-2024 End: 02-05-2024 Patient encounter procedure 02/05/2024 11:30 AM EDT Office Visit [facility] [address] [place] [address] Mouna Bautista MD [address], [address] [address] [facility] Start: 01-15-2024 End: 01-15-2024 Patient encounter procedure 01/15/2024 11:00 AM EDT Office Visit [facility] [address] [place] [address] Mouna Bautista MD [address], [address] [address] [facility] Start: 01-02-2024 End: 01-02-2024 Patient encounter procedure 01/02/2024 1:15 PM EDT Office Visit [facility] [address] [place] [address] Darci Santana MD [facility] [place] [address] [facility] Start: 12-05-2023 End: 12-05-2023 Patient encounter procedure 12/05/2023 10:15 AM EDT Office Visit [facility] [address] [place] [address] Darci Santana MD [address] [place] [address] [facility] Start: 11-06-2023 End: 11-06-2023 Patient encounter procedure 11/06/2023 3:30 PM EDT Office Visit Adelaida Hobbs [facility] [address] [place] [address] Allie Hoskins MD [address] [id number] Adelaida Hobbs [facility] [place] [facility] Start: 10-16-2023 End: 10-16-2023 Patient encounter procedure 10/16/2023 9:10 AM EST Office Visit [facility] [address] [place] [address] Mouna Bautista MD [address], [address] [address] [facility] Start: 04-25-2023 Influenza vaccination Influenza Vaccine [facility] Start: 2011 Fall Risk Screening Fall Risk Screening [employer] Start: 1996 Administration of varicella zoster vaccine Zoster (Shingles) Vaccine (1 of 2) [facility] Start: 1965 DTaP,Tdap and Td Vaccines (1 - Tdap) DTaP,Tdap and Td Vaccines (1 - Tdap) [facility] Start: 1946 Medicare Annual Wellness Visit Medicare Annual Wellness Visit [facility] End: 09-26-2024 Basic metabolic 2000 panel - Serum or Plasma Basic Metabolic Panel Lab Routine Vision blurred 1 Occurrences starting 09/26/2023 until 09/26/2024 [facility] Comment on above: 1 Occurrences starting 09/26/2023 until 09/26/2024 End: 09-26-2024 CBC W Auto Differential panel - Blood CBC auto differential Lab Routine Thrombocytosis 1 Occurrences starting 09/26/2023 until 09/26/2024 [facility] Comment on above: 1 Occurrences starting 09/26/2023 until 09/26/2024 End: 11-05-2024 CBC W Auto Differential panel - Blood CBC auto differential Lab Routine Giant cell arteritis ([facility]) Stroke-like symptoms Vision blurred Anemia, unspecified type every 2 months for 2 Occurrences starting 11/06/2023 until 11/05/2024 [employer] Work Phone: Comment on above: every 2 months for 2 Occurrences startin g 11/06/2023 until 11/05/2024 End: 11-05-2024 Ferritin [Mass/volume] in Serum or Plasma Ferritin Lab Routine Giant cell arteritis ([facility]) Stroke-like symptoms Vision blurred Anemia, unspecified type every 2 months for 2 Occurrences starting 11/06/2023 until 11/05/2024 [facility] Comment on above: every 2 months for 2 Occurrences startin g 11/06/2023 until 11/05/2024 End: 09-23-2023 Flow cytometry blood only [employer] Work Phone: Comment on above: Once for 1 Occurrences starting 09/23/19 24 until 09/23/2023 Immunoelectrophoresi s for Therapy Monitoring Immunoelectrophoresis for Therapy Monitoring Lab Routine 09/23/2023 12:56 PM EST [employer] Work Phone: End: 11-05-2024 Iron and TIBC Iron and TIBC Lab Routine Giant cell arteritis (CMS-HCC) Stroke-like symptoms Vision blurred Anemia, unspecified type every 2 months for 2 Occurrences starting 11/06/2023 until 11/05/2024 [facility] Comment on above: every 2 months for 2 Occurrences startin g 11/06/2023 until 11/05/2024 Methylmalonate [Moles/volume] in Serum or Plasma Methylmalonic acid screen Lab Routine 09/23/2023 12:57 PM EST [facility] End: 09-23-2023 Methylmalonic acid screen Methylmalonic acid screen Lab Routine Once for 1 Occurrences starting 09/23/2023 until 09/23/2023 [employer] Work Phone: Comment on above: Once for 1 Occurrences starting 09/23/19 24 until 09/23/2023 Protein electrophore sis, serum Protein electrophoresis, serum Lab Routine 09/23/2023 12:56 PM EST [facility] Payers Date Payer Category Payer Medicare H[place] [address] [id number] 2023 Medicare [id number] 2022 Medicare 2016 Private Health Insurance [id number] 1959 Medicare [id number] 1945 Unknown [id number] 2.16.840.1.119168.3.579 .2.593 1945 Unknown [id number] 2.16.840.1.998834.3.579 .2.593 1946 Unknown [id number] 2.16.840.1.516294.3.579 .2.196 1946 Unknown [id number] 2.16.840.1.342249.3.579 .2.196 1946 Unknown [id number] 2.16.840.1.418208.3.579 .2.196 1946 Unknown [id number] 2.16.840.1.394871.3.579 .2.196 1946 Unknown [id number] 2.16.840.1.534226.3.579 .2.196 1946 Unknown [id number] 2.16.840.1.890667.3.579 .2.196 1946 Unknown [id number] 2.16.840.1.881611.3.579 .2.128 1946 Unknown [id number] 2.16.840.1.029173.3.579 .2.128 1946 Unknown [id number] 2.16.840.1.319661.3.579 .2.1286 1946 Unknown [id number] 2.16.840.1.642702.3.579 .2.1285 1946 Unknown [id number] 2.16.840.1.883142.3.579 .2.128 1946 Unknown [id number] 2.16.840.1.200809.3.579 .2.128 1946 Unknown [id number] 2.16.840.1.743113.3.579 .2.128 1946 Unknown [id number] 2.16.840.1.517856.3.579 .2.128 1946 Unknown [id number] 2.16.840.1.259631.3.579 .2.1286 1946 Unknown [id number] 2.16.840.1.750483.3.579 .2.1286 1946 Unknown [id number] 2.16.840.1.765604.3.579 .2.1286 1946 Unknown [id number] 2.16.840.1.984604.3.579 .2.1286 1946 Unknown [id number] 2.16.840.1.981315.3.579 .2.1286 1946 Unknown [id number] 2.16.840.1.351562.3.579 .2.1286 1946 Unknown [id number] 2.16.840.1.421754.3.579 .2.1286 1946 Unknown [id number] 2.16.840.1.582439.3.579 .2.1286 1946 Unknown [id number] 2.16.840.1.390571.3.579 .2.1286 Self-pay Self Pay [id number] Social History Date Type Detail Facility Start: 10-16-2023 End: 04-13-2024 Tobacco smoking status ORIS Ex-smoker (finding) [facility] Start: 1945 Sex Assigned At Female F [facility] Start: 07-12-2024 End: 10-13-2024 Sex Female (finding) [facility] Start: 09-23-2023 Tobacco smoking stat us ORIS Never smoked tobacco [facility] Start: 09-23-2023 Tobacco use and exposure Smoke less tobacco non-user [facility] Start: 01-02-2024 End: 10-11-2024 Alcoholic beverage intake Lifetime non-drinker (finding) [facility] Start: 10-05-2020 End: 09-23-2023 History of Social function [facility] Start: 10-05-2020 End: 09-23-2023 Alcohol Use Disorder Identification Test - Consumption [AUDIT-C] [facility] How often to you hav e a drink containing alcohol? Never [facility] How many standard dr inks containing alcohol do you have on a typical day? [facility] not drink [facility] Start: 1945 Sex assigned at Not on file P [employer] [facility] Goals Date Patient Goal Desired Activity /State Personal health goal Comment on above: Formatting of this n ote might be different from the original. Evaluation of progress towards goal: Home with dtr, self care Clinical Notes 09-23-2023 to 10-11-2024 Myra Cota, CLAY PLANT TREATER-SENIOR GL ACCOUNTANT - 10/11/2024 9:30 AM ESTPatient Instructions Note Date & Type Note Facility 10-11-2024 History of Present illness Narrative Images from the original note were not included. [facility] [address] [place] [id number] 10/11/2024 Chief Complaint Patient presents with [...] ferrous sulfate b.i.d.. She worked with her assembler camper to change these medications. 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 Over the weekend patients vision in left eye continued to worsen and eventually lost all vision in left eye. Patient was seen by relations coordinator 09/22/2023 and time she would decreased vision also in her right eye. It was recommended that she go straight to the emergency department, for concern for giant cell arteritis. Initially she went to [facility] where they gave her Solu-Medrol 250 mg IV 1 dose and then transferred her to [facility]. When she arrived at [facility] she had complete vision loss in [...] day, repeat CBC and iron study at [facility] in 2 months. Follow-up in 4 [...] me to participate in this patient's care. ALANNA GARCIA 10/11/2024 9:57 AM Total time spent was 35 minutes: Preparing to see the patient (e.g., review of tests) Obtaining and/or reviewing separately obtained history Performing a medically appropriate examination and/or evaluation Counseling and educating the patient/family/caregiver Referring and communicating with other health rn transitional care (not separately reported) Documenting clinical information in the electronic or other health record Independently interpreting results (not separately reported) and communicating results to the patient/family/caregiver Care coordination (not separately reported) ------ Please note that portions of this note may have been generated using voice recognition M*Neighborland dictation software. Although every effort was made to ensure the accuracy of any automated transcriptions, some errors may have occurred. ALANNA Garcia 03/08/24 [id number] ALANNA Garcia 10/11/24 1457 documented in this encounter [facility] 10-11-2024 Instructions ALANNA Garcia - 10/11/2024 9:30 AM EST Continue ferrous [...] vitamin B12 folate documented in this encounter [facility] 10-06-2024 Note Subjective Patient ID: Jose David is a 79 y.o. female who presents for No chief complaint on file.. HPI She was admitted to [facility] end of August 2023 due to [...] 3 months to monitor for toxicity. [facility] 05-05-2024 Note Subjective Patient ID: Jose David is a 78 y.o. female who presents for Follow-up (1 headache a few weeks ago. Increased itching for a few months ). HPI She was admitted to [facility] end of August 2023 due to [...] 3 months to monitor for toxicity. [facility] 04-13-2024 Evaluation note Diagnosis Onset Date [...] 13, 2024 10:44am Vision loss, bilateral acute Au 2023 10:44am [facility] Work Phone: 1(219) 823-836807-15-2024 History of Present illness Narrative* Roxie Saldivar RN - 03/08/2024 2:46 PM EDT The patient is here for AMY follow up, labs and plan of care were reviewed with Myra BROOMCORN SEEDER. The following recommendations were made: Continue ferrous sulfate 325 mg twice daily Continue vitamin B12 1000 mcg daily Labs in 3 months CBC-d, iron panel, ferritin, vitamin B12 Follow up in 6 months with same labs prior Patient & daughter verbalized understanding, AVS given documented in this encounterLouis Stokes [facility]06-[facility] History of Present illness Narrative* Mouna Bautista [...] 09/25/2023 Performed by Kristel Reid MD at [facility] TONSILLECTOMY TUBAL LIGATION Social and Family [...] Interpersonal Safety: Unknown (10/17/2023) [facility] [place] Safety & Environment Fear of Current [...] List Giant cell arteritis (CMS-HCC) - Primary Jose was seen today for giant cell arteritis [...] you for your understanding. documented in this encounterLouis Stokes Cleveland [facility] Center06-05-2024 NoteSubjective Patient ID: Jose David is a 78 y.o. female who presents for Follow-up (GCA. Neck pain with cramping ). HPI She was admitted to [facility] end of August 2023 due to [...] every 3 months to monitor for toxicity.[facility] 01-02-2024 History of Present illness Narrative* Mahnaz Ochoa MD - 01/02/2024 1:30 PM EDT Images from the original note were not included. [address] [facility] [address] Patient: Jose David Date of : 1945 Encounter Date: 01/02/2024 Patient Care Team: MERCEDES Portillo as PCP - General (Nurse Practitioner) Allie Hoskins MD as Consulting Physician (Hematology) History of Present Illness: The patient is a 78 y.o. female, a patient seen at [facility] by our service, and is here [...] the patient was given a referral to [facility] eye Center? The patient states that on [...] the ED immediately. Patient initially went to [facility] and was given IV 250 mg Solu-Medrol once. She was then transferred to [facility] for further evaluation. Initial consideration with [...] head and CTA were reportedly done at [facility] and reported to be unremarkable. MRI [...] 09/25/2023 Performed by Kristel Reid MD at [facility] TONSILLECTOMY TUBAL LIGATION Current Outpatient Medications Medication [...] extend her arms outwards appropriately in botharms, lcoy-ft-cuco testing within normal. There is no dysmetria. [...] reviewed the resident's note. documented in this encounterLouis Stokes [facility] Center04-03-2024 NoteSubjective Patient ID: Jose David is a 78 y.o. female who presents for Follow-up (GCA). HPI She was admitted to [facility] end of August 2023 due to [...] every 3 months to monitor for toxicity.[facility] 11-06-2023 History of Present illness Narrative* Malinda Arrington RN - 11/06/2023 3:46 PM EDT Patient is here for consult with Dr. Hoskins. Orders received for CBC, iron studies every 2 months (print out orders). F/u in 4 months. Calendar given to family member and labs orders to be drawn at [facility]. documented in this encounterLouis Stokes [facility] Center03-14-2024 History of Present illness Narrative* Allie Hoskins MD - 11/06/2023 3:30 PM EDT Images from the original note were not included. [facility] 11/06/23 Jose David is a 78 y.o. year old female seen today in the oncology clinic. Chief Complaint Patient presents with Follow-up History of Present Illness: Mrs. David is a 78 y.o. female with no significant past medical history presented to revenue agent on 09/19/2023 due to blurry vision in left eye, she was told her optic disc was swollen and the patient was given a referral to relations coordinator. Over the weekend patients vision in left eye continued to worsen and eventually lost all vision in left eye. Patient was seen by relations coordinator 09/22/2023 and time she would decreased vision also in her right eye. It was recommended that she go straight to the emergency department, for concern for giant cell arteritis. Initially she went to [facility] where they gave her Solu-Medrol 250 mg IV 1 dose and then transferred her to [facility]. When she arrived at [facility] she had complete vision loss in [...] 09/25/2023 Performed by Kristel Reid MD at [facility] TONSILLECTOMY TUBAL LIGATION No family history [...] day, repeat CBC and iron study at [facility] in 2 months. Follow-up in 4 months. If patient can not tolerate oral iron supplement, consider IV iron treatment. Thank you. Allie Hoskins MD Please note that portions of this note were generated using voice recognition M*Modal dictation software. Although every effort was made to ensure the accuracy of this automated supervisor plasma, some errors in supervisor plasma may have occurred. CC: Patient Care Team: MERCEDES Portillo as PCP - General (Nurse Practitioner) Allie Hoskins MD as Consulting Physician (Hematology) PCP:Giovanna Graf Referring MD: John Patel DO documented in this encounterNorth [facility] HospitalPlant[facility]-14[facility] Instructions* Patient Instructions* Allie Hoskins MD - 11/06/2023 3:30 PM EDT CBC, iron studies every 2 months (print out orders). F/u in 4 months. documented in this encounterLouis Stokes [facility] Center02-23-2024 Miscellaneous Notes* Telephone Encounter - Beronica Vazquez [...] will have to fill. documented in this encounterLouis Stokes Cleveland [facility] Center02-23-2024 Telephone encounter Note* Telephone Encounter - Beronica Taylor - 10/17/2023 11:39 AM EST Patients daughterMalinda [...] pharmacy - specify address & phone number [facility]-23-2024 Telephone encounter Note* Telephone Encounter - Shadia Hua - 10/17/2023 11:39 AM EST I have attempted to contact this patient by phone with the following results: left detailed messageregarding that since patient has not been seen in clinic PCP or the provider that prescribed medication will have to fill. [facility]02-22-2024 History of Present illness Narrative* Mouna Bautista MD - 10/16/2023 9:10 AM EST Images from the original note were not included. [facility] [address] [facility] [address] Subjective: Patient ID: Jose David is a [...] Vision blurred Stroke-like symptoms Giant cell arteritis ([facility]) Current Outpatient Medications: acetaminophen (TYLENOL EXTRA STRENGTH) [...] orders for this visit: Giant cell arteritis ([facility]) Plan Plan: Referral to rheumatology for management of temporal arteritis. Continue steroids in the meanwhile Mouna Bautista MD documented in this encounterLouis Stokes [facility]02-05-2024 Miscellaneous Notes* Telephone Encounter - Rosa Ovalles [...] Patient saw Dr. Byrne at [facility] Hospital Visit 09/23-08/26/2023 5. PATIENT IS SCHEDULED ON/WITH: - 12/05/2023 at 10:[address] Santana documented in this encounterLouis Stokes Cleveland [facility] Center02-05-2024 Telephone encounter Note* Telephone Encounter - Rosa [...] Patient saw Dr. Byrne at [facility] Hospital Visit 09/23-08/26/2023 5. PATIENT IS SCHEDULED ON/WITH: - 12/05/2023 at 10:[address] Santana [facility]02-02-2024 Nurse Note* Caryn Briceno RN - 09/26/2023 5:38 PM EST Patient alert and oriented. IV and telemetry discontinued. All discharge instructions have been reviewed and are understood by the patient and daughter. Patient left the unit via wheelchair with all of their belongings and in no distress. Patient discharged home. [facility]02-02-[facility] Nurse Note* Caryn Briceno RN - 09/26/2023 5:38 PM EST Patient alert and oriented. IV and telemetry discontinued. All discharge instructions have been reviewed and are understood by the patient and daughter. Patient left the unit via wheelchair with all of their belongings and in no distress. Patient discharged home. documented in this encounterLouis Stokes Cleveland [facility] Center02-02-2024 Hospital course Narrative* Bart Milian MD - 09/26/2023 1:16 PM EST Images from the original note were not included. [facility]- Hospital Medicine Discharge Summary Patient's [...] time of the discharge: peripheral smear, flowcytometry, [facility] Course Jose Davidson a 78 y.o.female with no significant past medical history, she presented to the hospital with bilateral vision loss. Patient started to notice blurry vision in her left eye 09/19, she was evaluated by Ophthalmology outpatient who referred her to eye center in [place]. Over the weekend her left eye vision significantly deteriorated to a point where she could no longer see. On 09/22, she started developing vision loss in her right eye. She visited the eye center who sent her to ER right away. Patient initially presented to the [facility] ER, she was given Solu-Medrol 250 mg IV once and transferred to [facility] for further workup. Patient was evaluated [...] Your Medications These medications were sent to [facility]/pharmacy #[id number] AT CORNER OF [address] [address] aspirin 81 mg cyanocobalamin 1000 MCG tablet [...] Texture Adult diet John Patel, DO [address] [facility] [address] Schedule an appointment as soon as possible for a visit in 1 week(s) Jt Jasso MD [address] [facility] [address] [facility] [[email or web address]] Rheumatology [facility] [id number] Schedule an appointment as soon as possible for a visit in 2 week(s) Joni Pizano MD [address] [facility] [address] [facility] [address] Schedule an appointment as soon as possible for a visit in 2 week(s) Sandy Pizano MD [address] [facility], [address], [address] [facility] [id number] Schedule an appointment as soon as possible for a visit in 1 month(s) Montana Bartlett MD [address] [facility] [address] Schedule an appointment as soon as [...] questions. Electronically signed by: BART MILIAN MD [facility], Department of Internal Medicine 09/26/23 1:16 PM documented in this encounterLouis Stokes [facility] Center02-02-2024 Hospital Discharge instructions* Discharge Instructions* Bart Milian MD - 09/26/2023 1:15 PM EST You are started on Aspirin to reduce retirement risk of vascular complications with you suspected condition (giant cell arteritis) also it will help with preventing thrombosis (clotting) given your Thrombocytosis (elevated platelet count). Please discuss any concerns with your primary care provider, assembler camper or monitoring and evaluation advisor Discuss with primary care or assembler camper DEXA scan as you are expected to be on steroid medications for prolonged period of time (up to 6 months). Log term steroids can cause Osteoporosis. * Attachments The following attachments cannot be sent through Care Everywhere. * Polymyalgia rheumatica and giant cell arteritis (Cypriot) documented in this encounterLouis Stokes Cleveland [facility] Center02-02-2024 History of Present illness Narrative* Kellie Shah MD - 09/26/2023 12:30 PM EST Images from the original note were not included. [facility] Rheumatology PROGRESS NOTE DATE OF ADMISSION 09/23/2023 12:25 AM REASON FOR CONSULTATION: Acute B/L sudden painless vision loss concerning for B/l GCA REFERRING PHYSICIAN: Goran Thomas MD PCP JOHN PATEL, ASSESSMENT AND PLAN: B/L vision loss likely 2/2 GCA -Pt's initial symptoms were blur vision in L eye but unfortunately when she presented to [facility] she had complete vision loss in both [...] SSA, SSB, scleroderma antibody, Tiki 1, Mejia, EQUIPMENT OPERAT0R, anti dsDNA, anti chromatin were negative. -No [...] no significant past medical history presented to [facility] 09/24 for concerns of vision loss in left eye. Patient was evaluated by revenue agent on 09/19/2023 due to blurry vision left [...] concerns of giant cell arteritis. Initially at [facility] she was given Solu-Medrol 250 mg IV 1 dose and then transferred to [facility]. On presenting to [facility], she had complete vision loss in both eyes. She was started on IV Solu-Medrol 1000 mg for 3 days. She underwent bilateral temporal artery biopsy on 09/25/2023. During this admission she had workup done which showed positive SILVIA screen, mildly elevated rheumatoid factor at 21 and elevated anticentromere antibody. Anca ribosomal antibody, SSA, SSB, scleroderma antibody, Tiki 1, Mejia, EQUIPMENT OPERAT0R, anti dsDNA, anti chromatin were negative. PAST MEDICAL HISTORY: History reviewed. No pertinent past medical history. PAST SURGICAL HISTORY: Past Surgical History: Procedure Laterality Date APPENDECTOMY BIOPSY ARTERY TEMPORAL Bilateral 09/25/2023 Performed by Kristel Reid MD at [facility] TONSILLECTOMY TUBAL LIGATION ALLERGIES: Allergies Allergen [...] of the major arterial structures in the osage of [place]. The paranasal sinuses are clear. [...] of the major arterial structures in the osage of [place]. The paranasal sinuses are clear. [...] from the original note were not included. [facility] [place] [facility] Service Progress Note Subjective: Status post [...] De León MD,MD FACS 11:24 AM 09/26/2023 * Bart Milian MD - 09/25/2023 3:00 PM EST Images from the original note were not included. [facility] Progress Note 09/25/2023 Patient [...] 09/25/2023 Performed by Kristel Reid MD at [facility] TONSILLECTOMY TUBAL LIGATION OBJECTIVE Vital Signs: [...] presents to the emergency department from her relations coordinator's office. She was being evaluated with an relations coordinator for possible giant cell arthritis. She said [...] note were not included. [facility] Neurology General Neurology Consultation Note Consult Neurology Service: [phone] Primary Team: [facility] Chief Complaint and Reason for Consultation: Vision [...] was given referral to eye center in [facility], on Friday and Friday, vision on the left eye worsened significantly and she lost her vision on the left eye. On Friday 09/22, patient came to [place] to see an eye doctor, whoasked her to go to the ED. patient initially went to [facility], given Solu-Medrol 250 mg IVonce, transferred to [facility] for further workup and ophthalmology evaluation. According to the patient, her right eye vision worsened significantly on Friday, and she lost her vision on both eyes. Patient had no past medical history, she has not taking any scheduled medications, patient lives with her daughter, she is driving and working. Walking with no assistive devices. Upon initial assessment in [facility], patient had complete vision loss on [...] CTH, head and neck CTA done at [facility], reportedly unremarkable Impression: Binocular vision loss [...] to Friday 12-1:00 p.m. Primary Neurology service: [phone] Consult neurology service: [phone] Resident Stroke Service: [phone] If the patient belongs to the Stroke [...] the original note were not included. [facility] Progress Note 09/24/2023 Patient Name: [...] IgG [id number] [id number] - 1,741 mg/dL Free [place] Lt Chains 2.91 (H) 0.33 - 1.94 [...] of the major arterial structures in the osage of [place]. The paranasal sinuses are clear. [...] of the major arterial structures in the osage of [place]. The paranasal sinuses are clear. [...] note were not included. [facility] Neurology General Neurology Consultation Note Consult Neurology Service: [phone] Primary Team: SAMUEL Chief Complaint and Reason [...] was given referral to eye center in [facility], on Friday and Friday, vision on the left eye worsened significantly and she lost her vision on the left eye. On Friday 09/22, patient came to [place] to see an eye doctor, whoasked her to go to the ED. patient initially went to [facility], given Solu-Medrol 250 mg IVonce, transferred to [facility] for further workup and ophthalmology evaluation. According to the patient, her right eye vision worsened significantly on Friday, and she lost her vision on both eyes. Patient had no past medical history, she has not taking any scheduled medications, patient lives with her daughter, she is driving and working. Walking with no assistive devices. Upon initial assessment in [facility], patient had complete vision loss on [...] no other complaints. Rest of history per [facility] Physical Exam Vital Signs: Vitals: 09/23/23 1150 [...] CTH, head and neck CTA done at [facility], reportedly unremarkable Impression: Binocular vision loss [...] to Friday 12-1:00 p.m. Primary Neurology service: [phone] Consult neurology service: [phone] Resident Stroke Service: [phone] If the patient belongs to the Stroke [...] from the original note were not included. [facility] Progress Note 09/23/2023 Patient [...] can correct any mistakes. documented in this encounterLouis Stokes Cleveland [facility] Medical CenterWealthVisor.com02-02-2024 Progress note* Discharge Planning Note - Sophia [...] - Sophia Rajan RN 09/26/23 11:05 AM [facility] [id number] Miscellaneous Notes* Discharge Planning Note - Sophia Raajn RN - 09/26/2023 11:03 AM EST Images [...] at the bedside 7. Instruct patient/ patient account service representative about use of safety devices 8. Include patient/ patient account service representative in decisions related to safety Note: Evaluation of progress towards goal: No reports of injury during shift. Safety measures in place * Plan of Care - Jc Pelayo RN - 09/25/2023 11:52 PM EST Problem: Low Risk Fall Score Description: Clifford Fall Score of 0 - 24 or indicated by [facility] Assessment Goal: Patient should be free from fall Description: Interventions: 1. [place] to environment 2. Hourly rounds addressing the [...] non-skid footwear 11. Teach patient and patient account service representative to maintain environment for safety and [...] Description: INTERVENTIONS: 1. Encourage patient or legal account service representative to report early pain and ask [...] per policy 9. Teach patient or legal account service representative interventions for comforting Outcome: Progressing Note: [...] at the bedside 7. Instruct patient/ patient account service representative about use of safety devices 8. Include patient/ patient account service representative in decisions related to safety Outcome: [...] hygiene technique 7. Identify and instruct patient/patient account service representative in use of appropriate isolation precautionsfor identified infection/symptoms 8. Provide and discuss with patient/patient account service representative on educational MDRO sheet 9. Encourage and monitor nutritional status daily and consult childcare administrator if indicated 10. Implement neutropenic guidelines as needed 11. Review exposure to history of communicable disease and recent travel history on admission 12. Encourage annual influenza vaccine 13. Encourage pneumonia vaccine Outcome: Progressing Note: Evaluation of progress towards goal: Patient free from signs of infection. Afebrile. Continueto Monitor. Problem: Knowledge Deficit Goal: Patient/patient account service representative demonstrates understanding of disease process, treatment [...] of 0 - 24 or indicated by [facility] Assessment Goal: Patient should be free from fall Description: Interventions: 1. Cutler to environment 2. Hourly rounds addressing the [...] non-skid footwear 11. Teach patient and patient account service representative to maintain environment for safety and engage in all aspects of fall prevention program Outcome: Progressing Note: Evaluation of progress towards goal: Patient free from falls and injury. Continue to monitor. Problem: Moderate - High Risk Fall Score Description: Clifford Fall Score of =/> 25 or indicated by [facility] Assessment Goal: Patient should be free from fall Description: Interventions: 1. Cutler to environment 2. Hourly rounds addressing the [...] non-skid footwear 11. Teach patient and patient account service representative to maintain environment for safety and [...] (cane, walker) within reach 19. Request patient account service representative bring adaptive equipment/mobility aids from home or obtain and provide as needed 20. Consult pharmacy regarding effects of med's affecting mobility, cognition, and alternatives 21. Obtain physician order for PT if risk factors associated with mobility are present 22. Obtain physician order for OT as appropriate 23. Utilize diversional activities 24. Educate patient and patient account service representative how to maintain a safe environment during visitationtimes (notify nurse prior to leaving bedside) 25. Consider appropriateness of medical or non-medical associate 26. Set up voiding schedule as appropriate [...] days ago. She was evaluated by her relations coordinator who felt that vision loss was secondary [...] hemodynamically stable. Condition: stable Kristel Reid MD [facility] * Plan of Care - Jc Pelayo RN - 09/24/2023 11:51 PM EST Problem: Low Risk Fall Score Description: Clifford Fall Score of 0 - 24 or indicated by [facility] Assessment Goal: Patient should be free from fall Description: Interventions: 1. Cutler to environment 2. Hourly rounds addressing the [...] non-skid footwear 11. Teach patient and patient account service representative to maintain environment for safety and [...] Description: INTERVENTIONS: 1. Encourage patient or legal account service representative to report early pain and ask [...] per policy 9. Teach patient or legal account service representative interventions for comforting Outcome: Progressing Note: [...] at the bedside 7. Instruct patient/ patient account service representative about use of safety devices 8. Include patient/ patient account service representative in decisions related to safety Outcome: [...] hygiene technique 7. Identify and instruct patient/patient account service representative in use of appropriate isolation precautionsfor identified infection/symptoms 8. Provide and discuss with patient/patient account service representative on educational MDRO sheet 9. Encourage and monitor nutritional status daily and consult childcare administrator if indicated 10. Implement neutropenic guidelines as needed 11. Review exposure to history of communicable disease and recent travel history on admission 12. Encourage annual influenza vaccine 13. Encourage pneumonia vaccine Outcome: Progressing Note: Evaluation of progress towards goal: Patient afebrile, Monitoring labs. Problem: Knowledge Deficit Goal: Patient/patient account service representative demonstrates understanding of disease process, treatment [...] Description: INTERVENTIONS: 1. Encourage patient or legal account service representative to report early pain and ask [...] per policy 9. Teach patient or legal account service representative interventions for comforting Outcome: Progressing Note: [...] at the bedside 7. Instruct patient/ patient account service representative about use of safety devices 8. Include patient/ patient account service representative in decisions related to safety Outcome: [...] hygiene technique 7. Identify and instruct patient/patient account service representative in use of appropriate isolation precautionsfor identified infection/symptoms 8. Provide and discuss with patient/patient account service representative on educational MDRO sheet 9. Encourage and monitor nutritional status daily and consult childcare administrator if indicated 10. Implement neutropenic guidelines as [...] Description: INTERVENTIONS: 1. Encourage patient or legal account service representative to report early pain and ask [...] per policy 9. Teach patient or legal account service representative interventions for comforting Outcome: Progressing Note: [...] at the bedside 7. Instruct patient/ patient account service representative about use of safety devices 8. Include patient/ patient account service representative in decisions related to safety Outcome: [...] hygiene technique 7. Identify and instruct patient/patient account service representative in use of appropriate isolation precautionsfor identified infection/symptoms 8. Provide and discuss with patient/patient account service representative on educational MDRO sheet 9. Encourage and monitor nutritional status daily and consult childcare administrator if indicated 10. Implement neutropenic guidelines as needed 11. Review exposure to history of communicable disease and recent travel history on admission 12. Encourage annual influenza vaccine 13. Encourage pneumonia vaccine Outcome: Progressing Note: Evaluation of progress towards goal: Patient receiving antibiotics as ordered. Continue to monitor. Problem: Knowledge Deficit Goal: Patient/patient account service representative demonstrates understanding of disease process, treatment [...] of 0 - 24 or indicated by [facility] Assessment Goal: Patient should be free from fall Description: Interventions: 1. Cutler to environment 2. Hourly rounds addressing the [...] non-skid footwear 11. Teach patient and patient account service representative to maintain environment for safety and [...] at the bedside 7. Instruct patient/ patient account service representative about use of safety devices 8. Include patient/ patient account service representative in decisions related to safety Outcome: [...] hygiene technique 7. Identify and instruct patient/patient account service representative in use of appropriate isolation precautionsfor identified infection/symptoms 8. Provide and discuss with patient/patient account service representative on educational MDRO sheet 9. Encourage and monitor nutritional status daily and consult childcare administrator if indicated 10. Implement neutropenic guidelines as needed 11. Review exposure to history of communicable disease and recent travel history on admission 12. Encourage annual influenza vaccine 13. Encourage pneumonia vaccine Outcome: Progressing Note: Evaluation of progress towards goal: Patient has no signs and symptoms of infection. Problem: Low Risk Fall Score Description: Clifford Fall Score of 0 - 24 or indicated by [facility] Assessment Goal: Patient should be free from fall Description: Interventions: 1. Cutler to environment 2. Hourly rounds addressing the [...] non-skid footwear 11. Teach patient and patient account service representative to maintain environment for safety and engage in all aspects of fall prevention program Outcome: Progressing Note: Evaluation of progress towards goal: Patient remained free from falls. Will continue to utilized fall prevention measures. [facility] Plan of care note * Plan of [...] at the bedside 7. Instruct patient/ patient account service representative about use of safety devices 8. Include patient/ patient account service representative in decisions related to safety Note: Evaluation of progress towards goal: No reports of injury during shift. Safety measures in place [facility]02-01[facility] Plan of care note* Plan of Care - Jc Pelayo RN - 09/25/2023 11:52 PM EST Problem: Low Risk Fall Score Description: Clifford Fall Score of 0 - 24 or indicated by [facility] Assessment Goal: Patient should be free from fall Description: Interventions: 1. Cutler to environment 2. Hourly rounds addressing the [...] non-skid footwear 11. Teach patient and patient account service representative to maintain environment for safety and engage in all aspects of fall prevention program Outcome: Progressing Note: Evaluation of progress towards goal: Patient remained free from falls. Will continue to utilized fall prevention measures. [facility] [id number] Progress note* Discharge Planning Note - Sophia [...] - Sophia Rajan RN 09/25/23 1:09 PM [facility] [id number] Plan of care note* Plan of Care - Sabas Snow RN - 09/25/2023 12:35 PM EST Problem: Pain Goal: Patient goal is pain score less than 4, able to rest, and participant in treatment plan as appropriate Description: INTERVENTIONS: 1. Encourage patient or legal account service representative to report early pain and ask [...] per policy 9. Teach patient or legal account service representative interventions for comforting Outcome: Progressing Note: [...] at the bedside 7. Instruct patient/ patient account service representative about use of safety devices 8. Include patient/ patient account service representative in decisions related to safety Outcome: [...] hygiene technique 7. Identify and instruct patient/patient account service representative in use of appropriate isolation precautionsfor identified infection/symptoms 8. Provide and discuss with patient/patient account service representative on educational MDRO sheet 9. Encourage and monitor nutritional status daily and consult childcare administrator if indicated 10. Implement neutropenic guidelines as needed 11. Review exposure to history of communicable disease and recent travel history on admission 12. Encourage annual influenza vaccine 13. Encourage pneumonia vaccine Outcome: Progressing Note: Evaluation of progress towards goal: Patient free from signs of infection. Afebrile. Continueto Monitor. Problem: Knowledge Deficit Goal: Patient/patient account service representative demonstrates understanding of disease process, treatment [...] of 0 - 24 or indicated by [facility] Assessment Goal: Patient should be free from fall Description: Interventions: 1. Cutler to environment 2. Hourly rounds addressing the [...] non-skid footwear 11. Teach patient and patient account service representative to maintain environment for safety and engage in all aspects of fall prevention program Outcome: Progressing Note: Evaluation of progress towards goal: Patient free from falls and injury. Continue to monitor. Problem: Moderate - High Risk Fall Score Description: Clifford Fall Score of =/> 25 [facility] Goal: Patient should be free from fall Description: Interventions: 1. Cutler to environment 2. Hourly rounds addressing the [...] non-skid footwear 11. Teach patient and patient account service representative to maintain environment for safety and [...] (cane, walker) within reach 19. Request patient account service representative bring adaptive equipment/mobility aids from home or obtain and provide as needed 20. Consult pharmacy regarding effects of med's affecting mobility, cognition, and alternatives 21. Obtain physician order for PT if risk factors associated with mobility are present 22. Obtain physician order for OT as appropriate 23. Utilize diversional activities 24. Educate patient and patient account service representative how to maintain a safe environment during visitationtimes (notify nurse prior to leaving bedside) 25. Consider appropriateness of medical or non-medical associate 26. Set up voiding schedule as appropriate (every 2 hours) Outcome: Progressing Note: Evaluation of progress towards goal: Patient free from falls and injury. Continue to monitor. [facility]02-01-2024 Consult note* Kellie Shah MD - 09/25/2023 8:47 AM ESTAssociated Order(s): IP CONSULT TO RHEUMATOLOGY Images from the original note were not included. 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 -No concern for RA or scleroderma given lack of clinical symptoms Discussed with attending Dr. Romero Shah PGY-5, Rheumatology CHIEF COMPLAINT: Visual loss HISTORY OF PRESENT ILLNESS: Jose David is a 78 y.o. White or female who presents with no significant past medical history presented to [facility] 09/24 for concerns of vision loss in left eye. Patient was evaluated by revenue agent on 09/19/2023 due to blurry vision left [...] concerns of giant cell arteritis. Initially at [facility] she was given Solu-Medrol 250 mg IV 1 dose and then transferred to [facility]. On presenting to [facility], she had complete vision loss in both eyes. She was started on IV Solu-Medrol 1000 mg for 3 days. She underwent bilateral temporal artery biopsy on 09/25/2023. During this admission she had workup done which showed positive SILVIA screen, mildly elevated rheumatoid factor at 21 and elevated anticentromere antibody. Anca ribosomal antibody, SSA, SSB, scleroderma antibody, Tiki 1, Mejia, EQUIPMENT OPERAT0R, anti dsDNA, anti chromatin were negative. PAST [...] of the major arterial structures in the os[place] of [place]. The paranasal sinuses are clear. [...] of the major arterial structures in the os[place] of [place]. The paranasal sinuses are clear. [...] IgG 992 635 - 1,741 mg/dL Free [place] Lt Chains 2.91 (H) 0.33 - 1.94 [...] I agree with the assessment and plan. [facility]02-01[facility] Consult note* Kellie Shah MD - 09/25/2023 8:47 AM ESTAssociated Order(s): IP CONSULT TO RHEUMATOLOGY Images from the original note were not included. 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 -No concern for RA or scleroderma given lack of clinical symptoms Discussed with attending Dr. Romero Shah PGY-5, Rheumatology CHIEF COMPLAINT: Visual loss HISTORY OF PRESENT ILLNESS: Jose David is a 78 y.o. White or female who presents with no significant past medical history presented to [facility] 09/24 for concerns of vision loss in left eye. Patient was evaluated by revenue agent on 09/19/2023 due to blurry vision left [...] concerns of giant cell arteritis. Initially at [facility] she was given Solu-Medrol 250 mg IV 1 dose and then transferred to [facility]. On presenting to [facility], she had complete vision loss in both eyes. She was started on IV Solu-Medrol 1000 mg for 3 days. She underwent bilateral temporal artery biopsy on 09/25/2023. During this admission she had workup done which showed positive SILVIA screen, mildly elevated rheumatoid factor at 21 and elevated anticentromere antibody. Anca ribosomal antibody, SSA, SSB, scleroderma antibody, Tiki 1, Mejia, EQUIPMENT OPERAT0R, anti dsDNA, anti chromatin were negative. PAST [...] of the major arterial structures in the [place] of [place]. The paranasal sinuses are clear. [...] of the major arterial structures in the [place] of [place]. The paranasal sinuses are clear. [...] IgG 992 635 - 1,741 mg/dL Free [place] Lt Chains 2.91 (H) 0.33 - 1.94 [...] the assessment and plan. * Faisal Rascon APRN-SENIOR GL ACCOUNTANT - 09/24/2023 10:37 AM EST Images from the original note were not included. Vascular History and Physical Examination/Consultation Note Reason for Consultation Bilateral temporal artery biopsy, concern for giant cell arteritis History and Present Illness Jose David is a 78 y.o. White or female who presents to the emergency department from her relations coordinator's office. She was being evaluated with an relations coordinator for possible giant cell arthritis. She said [...] questions or concerns regarding management. ALANNA Guzman [facility] [place] Office/After hours: [phone] ALANNA Guzman 09/24/23 1521 * Bayron Denise - 09/23/2023 4:37 PM ESTAssociated Order(s): IP CONSULT TO SPIRITUAL CARE Summary: Spiritual Care Consult for Advance Directive Assistance Spiritual Care Consult for Advance Directive Assistance Advance Directive: Core Analyst provided patient with education on the need for advance directives and a copy of the [place] Advance Directive packet. Core Analyst assisted patient in completing the advance directives. Patient completed and signed a healthcare power of assistant attorney general. Patient was given the original and a copy. One copy placed in patient's chart. A cylinder press operator is available 17/03 to offer spiritual and emotional support and may be reached through the [facility] info print press operator at [phone]. * Montana Bartlett MD - 09/23/2023 12:15 PM ESTAssociated Order(s): IP CONSULT TO OPHTHALMOLOGY Date: Reason for consult: I have been asked to evaluate the eyes of this 78-year-old lady who noticed sudden onset of foggy in the left eye 4 days ago this rapidly progressed to complete loss of vision in the left eye.. She saw an revenue agent who indicated to her that she had [...] advocated. Temporal artery biopsy is indicated. Thanks Motnana Bartlett MD, FACS. * Joni Pizano MD [...] the patient was given a referral to relations coordinator. Over the weekend patients vision in left eye continued to worsen and eventually lost all vision in left eye. Patient was seen by relations coordinator 09/22/2023 and time she would decreased vision also in her right eye. It was recommended that she go straight to the emergency department, for concern for giant cell arteritis. Initially she went to [facility] where they gave her Solu-Medrol 250 mg IV 1 dose and then transferred her to [facility]. When she arrived at 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 She takes no regular medication, she has [...] you for the consultation. Caitie Wilder PA-C [facility] [address] [place] [address] September 23, 2023, 10:20 AM Please note that portions of this note were generated using voice recognition [employer] dictation software. Although every effort was made to ensure the accuracy of this automated supervisor plasma, some errors in supervisor plasma may have occurred. I have personally performed [...] need to start aspirin Joni PIZANO M.D. [facility] Day time contact: After hours answering service: [phone] [place] [address] * Carlitos Caraballo MD - 09/23/2023 12:53 AM ESTAssociated Order(s): IP CONSULT TO NEUROLOGY Images from the original note were not included. [facility] Neurology General Neurology Consultation Note Consult Neurology Service: [phone] Primary Team: [facility] Chief Complaint and Reason for Consultation: Vision [...] was given referral to eye center in [facility], on Friday and Friday, vision on the left eye worsened significantly and she lost her vision on the left eye. On Friday 09/22, patient came to [place] to see an eye doctor, whoasked her to go to the ED. patient initially went to [facility], given Solu-Medrol 250 mg IVonce, transferred to [facility] for further workup and ophthalmology evaluation. According to the patient, her right eye vision worsened significantly on Friday, and she lost her vision on both eyes. Patient had no past medical history, she has not taking any scheduled medications, patient lives with her daughter, she is driving and working. Walking with no assistive devices. Upon initial assessment in [facility], patient had complete vision loss on [...] Reportedly ESR and CRP were elevated at [facility] Imaging: CTH, head and neck CTA done at [facility], reportedly unremarkable Other Testing: None Assessment: [...] follow Carlitos Caraballo MD PGY-3, Neurology Resident [facility] Staffed with: (Dr. Byrne) This patient is being followed by the Neurology Resident service. Contact attending directly during these hours: Friday to 7:30-8:30 A.M. to Friday 12-1:00 p.m. Primary Neurology service: [phone] Consult neurology service: [phone] Resident Stroke Service: [phone] If the patient belongs to the Stroke [...] Sandy Pizano MD, PhD documented in [facility] Procedure note* Op Note - [...] days ago. She was evaluated by her relations coordinator who felt that vision loss was secondary [...] Disposition: PACU - hemodynamically stable. Condition: stable Kritsel Reid MD [facility]02-01-[facility]24 Attending History and physical note* Kristel Reid MD - 09/25/2023 7:30 AM EST HISTORY AND PHYSICAL INTERVAL NOTE: Jose David 1945 [id number] H&P reviewed. The patient was examined and there are no changes to the H&P. Kristel Reid MD Source Note - Faisal Rascon APRN-SENIOR GL ACCOUNTANT - 09/24/2023 10:37 AM EST Images from the original note were not included. Vascular History and Physical Examination/Consultation Note Reason for Consultation Bilateral temporal artery biopsy, concern for giant cell arteritis History and Present Illness Jose David is a 78 y.o. White or female who presents to the emergency department from her relations coordinator's office. She was being evaluated with an relations coordinator for possible giant cell arthritis. She said [...] questions or concerns regarding management. ALANNA Guzman [facility] [place] Office/After hours: [phone] ALANNA Guzman 09/24/23 1521 ALANNA Guzman 09/25/23 0730 [facility]02-01-[facility] History and physical note* Kristel Reid MD - 09/25/2023 7:30 AM EST HISTORY AND PHYSICAL INTERVAL NOTE: Jose David 1945 [id number] H&P reviewed. The patient was examined and there are no changes to the H&P. Kristel Reid MD Source Note - Faisal Rascon APRN-SENIOR GL ACCOUNTANT - 09/24/2023 10:37 AM EST Images from the original note were not included. Vascular History and Physical Examination/Consultation Note Reason for Consultation Bilateral temporal artery biopsy, concern for giant cell arteritis History and Present Illness Jose David is a 78 y.o. White or female who presents to the emergency department from her relations coordinator's office. She was being evaluated with an relations coordinator for possible giant cell arthritis. She said [...] questions or concerns regarding management. ALANNA Guzman [facility] [place] Office/After hours: [phone] ALANNA Guzman 09/24/23 1521 ALANNA Guzman 09/25/23 0730 * Nandini Walters MD - 09/23/2023 12:34 AM EST Images from the original note were not included. [facility] History and Physical 09/23/2023 [...] ophthalmology recommendation, patient saw Ophthalmology in [place] today evaluated for possible giant cell arthritis, [...] pedis pulses present and equal bilaterally Skin: [place], warm, dry; no rashes or lesions Neurologic: [...] Electronically signed by: MD Nandini PAREDES M.D. [facility] This note was completed using a voice supervisor plasma system. Every effort was made to ensure accuracy. However, inadvertent computerized supervisor plasma errors may be present. [facility] Plan of care note * Plan of Care - Jc Pelayo RN - 09/24/2023 11:51 PM EST Problem: Low Risk Fall Score Description: Clifford Fall Score of 0 - 24 or indicated by [facility] Assessment Goal: Patient should be free from fall Description: Interventions: 1. Cutler to environment 2. Hourly rounds addressing the [...] non-skid footwear 11. Teach patient and patient account service representative to maintain environment for safety and engage in all aspects of fall prevention program Outcome: Progressing Note: Evaluation of progress towards goal: Patient remained free from falls. Will continue to utilized fall prevention measures. [facility] Plan of care note* Plan of Care - Faiza Valverde RN - 09/24/2023 11:08 AM EST Problem: Pain Goal: Patient goal is pain score less than 4, able to rest, and participant in treatment plan as appropriate Description: INTERVENTIONS: 1. Encourage patient or legal account service representative to report early pain and ask [...] per policy 9. Teach patient or legal account service representative interventions for comforting Outcome: Progressing Note: [...] at the bedside 7. Instruct patient/ patient account service representative about use of safety devices 8. Include patient/ patient account service representative in decisions related to safety Outcome: [...] hygiene technique 7. Identify and instruct patient/patient account service representative in use of appropriate isolation precautionsfor identified infection/symptoms 8. Provide and discuss with patient/patient account service representative on educational MDRO sheet 9. Encourage and monitor nutritional status daily and consult childcare administrator if indicated 10. Implement neutropenic guidelines as needed 11. Review exposure to history of communicable disease and recent travel history on admission 12. Encourage annual influenza vaccine 13. Encourage pneumonia vaccine Outcome: Progressing Note: Evaluation of progress towards goal: Patient afebrile, Monitoring labs. Problem: Knowledge Deficit Goal: Patient/patient account service representative demonstrates understanding of disease process, treatment plan,medications, and discharge instructions Description: INTERVENTIONS 1. Complete learning assessment and assess knowledge base 2. Provide teaching at level of understanding 3. Provide teaching via preferred learning method(s) Outcome: Progressing Note: Evaluation of progress towards goal: POC reviewed with patient, verbalizes understanding [facility]et[facility] Technologies [id number] Progress note* Discharge Planning Note - Sophia [...] - Sophia Rajan RN 09/24/23 10:57 AM [facility]01-31-2024 Consult note* Faisal Rascon APRN-RIVKA - 09/24/2023 10:37 AM EST Images from the original note were not included. Vascular History and Physical Examination/Consultation Note Reason for Consultation Bilateral temporal artery biopsy, concern for giant cell arteritis History and Present Illness Jose David is a 78 y.o. White or female who presents to the emergency department from her relations coordinator's office. She was being evaluated with an relations coordinator for possible giant cell arthritis. She said [...] questions or concerns regarding management. ALANNA Guzman [facility] [place] Office/After hours: [phone] ALANNA Guzman 09/24/23 1521 [facility] Work Phone: [phone] Plan of care note* Plan of Care - Mago Moreau RN - 09/23/2023 9:58 PM EST Problem: Pain Goal: Patient goal is pain score less than 4, able to rest, and participant in treatment plan as appropriate Description: INTERVENTIONS: 1. Encourage patient or legal account service representative to report early pain and ask [...] per policy 9. Teach patient or legal account service representative interventions for comforting Outcome: Progressing Note: [...] at the bedside 7. Instruct patient/ patient account service representative about use of safety devices 8. Include patient/ patient account service representative in decisions related to safety Outcome: [...] hygiene technique 7. Identify and instruct patient/patient account service representative in use of appropriate isolation precautionsfor identified infection/symptoms 8. Provide and discuss with patient/patient account service representative on educational MDRO sheet 9. Encourage and monitor nutritional status daily and consult childcare administrator if indicated 10. Implement neutropenic guidelines as needed 11. Review exposure to history of communicable disease and recent travel history on admission 12. Encourage annual influenza vaccine 13. Encourage pneumonia vaccine Outcome: Progressing Note: Evaluation of progress towards goal: monitor for signs and symptoms of infection [facility] Plan of care note* Plan of Care - Sabas Snow RN - 09/23/2023 4:41 PM EST Problem: Pain Goal: Patient goal is pain score less than 4, able to rest, and participant in treatment plan as appropriate Description: INTERVENTIONS: 1. Encourage patient or legal account service representative to report early pain and ask [...] per policy 9. Teach patient or legal account service representative interventions for comforting Outcome: Progressing Note: [...] at the bedside 7. Instruct patient/ patient account service representative about use of safety devices 8. Include patient/ patient account service representative in decisions related to safety Outcome: [...] hygiene technique 7. Identify and instruct patient/patient account service representative in use of appropriate isolation precautionsfor identified infection/symptoms 8. Provide and discuss with patient/patient account service representative on educational MDRO sheet 9. Encourage and monitor nutritional status daily and consult childcare administrator if indicated 10. Implement neutropenic guidelines as needed 11. Review exposure to history of communicable disease and recent travel history on admission 12. Encourage annual influenza vaccine 13. Encourage pneumonia vaccine Outcome: Progressing Note: Evaluation of progress towards goal: Patient receiving antibiotics as ordered. Continue to monitor. Problem: Knowledge Deficit Goal: Patient/patient account service representative demonstrates understanding of disease process, treatment [...] of 0 - 24 or indicated by [facility] Assessment Goal: Patient should be free from fall Description: Interventions: 1. Cutler to environment 2. Hourly rounds addressing the [...] non-skid footwear 11. Teach patient and patient account service representative to maintain environment for safety and engage in all aspects of fall prevention program Outcome: Progressing Note: Evaluation of progress towards goal: Patient free from falls and injury. Continue to monitor. [facility] [employer] [id number] Consult note* Bayron Denise - 09/23/2023 4:37 PM ESTAssociated Order(s): IP CONSULT TO SPIRITUAL CARE Summary: Spiritual Care Consult for Advance Directive Assistance Spiritual Care Consult for Advance Directive Assistance Advance Directive: Core Analyst provided patient with education on the need for advance directives and a copy of the [place] Advance Directive packet. Core Analyst assisted patient in completing the advance directives. Patient completed and signed a healthcare power of assistant attorney general. Patient was given the original and a copy. One copy placed in patient's chart. A cylinder press operator is available 17/03 to offer spiritual and emotional support and may be reached through the [facility] info print press operator at [phone]. [facility] [employer] / [id number] Progress note* Discharge Planning Note - LIANE [...] care - LIANE KEN 09/23/23 2:07 PM [facility]30[facility] Progress note* Situational Awareness - ALANNA Rosario - 09/23/2023 12:58 PM EST Consulted for MAUREEN to rule out embolic process in setting of sudden vision loss. Discussed with neurology, recommend surface echo with bubble study prior to consideration of MAUREEN. If TTE unremarkable and continued concerns, please let us know. ALANNA Rosario 09/23/23 1300 [employer] Work Phone: 1([phone]) 844-717101-30-2024 Consult note* Montana Bartlett MD - 09/23/2023 12:15 PM ESTAssociated Order(s): IP CONSULT TO OPHTHALMOLOGY Date: Reason for consult: I have been asked to evaluate the eyes of this 78-year-old lady who noticed sudden onset of foggy in the left eye 4 days ago this rapidly progressed to complete loss of vision in the left eye.. She saw an revenue agent who indicated to her that she had [...] is indicated. Thanks Montana Bartlett MD, FACS. [employer] Work Phone: [phone]) 102-264701-30-2024 Consult note* Joni Pizano MD - 09/23/2023 [...] the patient was given a referral to relations coordinator. Over the weekend patients vision in left eye continued to worsen and eventually lost all vision in left eye. Patient was seen by relations coordinator 09/22/2023 and time she would decreased vision also in her right eye. It was recommended that she go straight to the emergency department, for concern for giant cell arteritis. Initially she went to [facility] where they gave her Solu-Medrol 250 mg IV 1 dose and then transferred her to [facility]. When she arrived at [facility] she had complete vision loss in both eyes. Neurology has seen patient she was noted to have elevated platelet count 924,000, elevation of ESR 130, and CRP 13.3. Neurology has ordered orbit MRI, and brain MRI which are pending. Neurology gave differential diagnosis of bilateral transverse myelitis versus ischemic retinopathy/GCA. 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 She takes no regular medication, she has [...] you for the consultation. Caitie Wilder PA-C [facility] [address] [place] [address] September 23, 2023, 10:20 AM Please note that portions of this note were generated using voice recognition [employer] dictation software. Although every effort was made to ensure the accuracy of this automated supervisor plasma, some errors in supervisor plasma may have occurred. I have personally performed [...] need to start aspirin Joni PIZANO M.D. [facility] Day time contact: After hours answering service: [phone] [place] [address] [employer] Work Phone: [phone] Plan of care note* Plan of Care [...] at the bedside 7. Instruct patient/ patient account service representative about use of safety devices 8. Include patient/ patient account service representative in decisions related to safety Outcome: [...] hygiene technique 7. Identify and instruct patient/patient account service representative in use of appropriate isolation precautionsfor identified infection/symptoms 8. Provide and discuss with patient/patient account service representative on educational MDRO sheet 9. Encourage and monitor nutritional status daily and consult childcare administrator if indicated 10. Implement neutropenic guidelines as needed 11. Review exposure to history of communicable disease and recent travel history on admission 12. Encourage annual influenza vaccine 13. Encourage pneumonia vaccine Outcome: Progressing Note: Evaluation of progress towards goal: Patient has no signs and symptoms of infection. Problem: Low Risk Fall Score Description: Clifford Fall Score of 0 - 24 or indicated by [facility] Assessment Goal: Patient should be free from fall Description: Interventions: 1. Cutler to environment 2. Hourly rounds addressing the [...] non-skid footwear 11. Teach patient and patient account service representative to maintain environment for safety and engage in all aspects of fall prevention program Outcome: Progressing Note: Evaluation of progress towards goal: Patient remained free from falls. Will continue to utilized fall prevention measures. [facility]01-30-2024 Consult note* Carlitos Caraballo MD - 09/23/2023 12:53 AM ESTAssociated Order(s): IP CONSULT TO NEUROLOGY Images from the original note were not included. [facility] Neurology General Neurology Consultation Note Consult Neurology Service: [phone] Primary Team: [facility] Chief Complaint and Reason for Consultation: Vision [...] was given referral to eye center in [facility], on Friday and Friday, vision on the left eye worsened significantly and she lost her vision on the left eye. On Friday 09/22, patient came to [place] to see an eye doctor, whoasked her to go to the ED. patient initially went to [facility], given Solu-Medrol 250 mg IVonce, transferred to [facility] for further workup and ophthalmology evaluation. According to the patient, her right eye vision worsened significantly on Friday, and she lost her vision on both eyes. Patient had no past medical history, she has not taking any scheduled medications, patient lives with her daughter, she is driving and working. Walking with no assistive devices. Upon initial assessment in [facility], patient had complete vision loss on [...] Reportedly ESR and CRP were elevated at [facility] Imaging: CTH, head and neck CTA done at [facility], reportedly unremarkable Other Testing: None Assessment: [...] follow Carlitos Caraballo MD PGY-3, Neurology Resident [facility] Staffed with: (Dr. Byrne) This patient is being followed by the Neurology Resident service. Contact attending directly during these hours: Friday to 7:30-8:30 A.M. to Friday 12-1:00 p.m. Primary Neurology service: [phone] Consult neurology service: [phone] Resident Stroke Service: [phone] If the patient belongs to the Stroke [...] follow and update Sandy Pizano MD, PhD [facility] Work Phone: [phone]) 684-139601-30-2024 History and physical note* Nandini Walters MD - 09/23/2023 12:34 AM EST Images from the original note were not included. [facility] History and Physical 09/23/2023 [...] ophthalmology recommendation, patient saw Ophthalmology in [place] today evaluated for possible giant cell arthritis, [...] pedis pulses present and equal bilaterally Skin: [place], warm, dry; no rashes or lesions Neurologic: [...] Electronically signed by: MD Nandini PAREDES M.D. [facility] This note was completed using a voice supervisor plasma system. Every effort was made to ensure accuracy. However, inadvertent computerized supervisor plasma errors may be present. [facility] SystemEvaluation note* Diagnosis Onset Date Resolution Status GERD (gastroesophageal reflux disease) acute Hospital discharge follow-up acute Temporal arteritis acute Vision loss, bilateral acute [facility] Work Phone: Evaluation note* Diagnosis Onset Date Resolution Status GERD (gastroesophageal reflux disease) acute History of cataract extraction with lens replacement acute Hospital discharge follow-up acute Temporal arteritis acute Vision loss, bilateral acute Acute effusion of left ear a cute Eustachian tube dysfunction [facility] Work Phone: Evaluation noteNo assessment information available [facility] Work Phone: Evaluation note* Diagnosis Giant cell arteritis (CMS-HCC)- Primary Giant cell arteritis documented [facility] Diagnosis Giant cell arteritis (CMS-HCC)- Primary Giant cell arteritis [facility]* Diagnosis Vision blurred- Primary Other specified visual disturbances B12 deficiency Thrombocytosis Essential thrombocythemia Vision blurred Other specified visual disturbances Temporal arteritis (CMS-HCC) Giant cell arteritis Stroke-like symptoms documented [facility] Diagnosis Giant cell arteritis (CMS-HCC)- Primary Giant cell arteritis documented in this encounter [facility]* Diagnosis Normocytic anemia- Primary Unspecified anemia Thrombocytosis Essential thrombocythemia Anemia, unspecified type [facility] Diagnosis Giant cell arteritis (CMS-HCC)- Primary Giant cell arteritis Stroke-like symptoms Vision blurred Other specified visual disturbances Anemia, unspecified type documented [facility] Diagnosis Normocytic anemia- Primary Unspecified anemia Thrombocytosis Essential thrombocythemia documented [facility] Diagnosis Normocytic anemia- Primary Unspecified anemia Thrombocytosis Essential thrombocythemia Anemia, unspecified type Iron deficiency Disorders of iron metabolism Giant cell arteritis (CMS-HCC) Giant cell arteritis Vision blurred Other specified visual disturbances [facility]* Diagnosis Onset Date Resolution Status Admit Date Left otitis media acute Februar y 2024 2:27pm Muscle spasm acute September 2:27pm Neck pain acute October 13, 2024 2:27pm [facility] Work Phone: InstructionsNot on filedocumented in this encounter [facility] System[facility]ructionsNot on filedocumented in this encounter [facility] SystemInstructionsNot on filedocumented in this encounter [facility] SystemInstructionsNot on filedocumented in this encounter [facility] SystemInstructionsNot on filedocumented in this encounter [facility] Summary Purpose Family History No Family [...] Documents on File Type Date Recorded Patient Technical Support 1 Software Engineer Expl anation Durable Power of Title Searcher 10/03/2023 8:14 AM Durable Power of Title Searcher 09/23/2023 4:17 PM [facility] Care Pow er of Title Searcher Date Activated Date Inactivated Comments 09/23/2023 12:33 [...] Documents on File Type Date Recorded Patient Technical Support 1 Software Engineer Expl anation Durable Power of Title Searcher 09/23/2023 4:17 PM [facility] Pow er of Title Searcher Latest Code Status on File Code Status Date Activated Date Inactivated Comments Full Code 09/23/2023 12:33 AM 09/26/2023 7:44 PM Healthcare Agents on File Name Relationship Healthcare Agent Relationshi p Communication Mike David Son Health Care Agent [id number] (Home) Malinda Brito Daughter First Alternate Health Care Agent Documents on File Type Date Recorded Patient Technical Support 1 Software Engineer Expl anation Durable Power of Title Searcher 09/23/2023 4:17 PM [facility] Care Pow er of Title Searcher Latest Code Status on File Code Status Date Activated Date Inactivated Comments Full Code 09/23/2023 12:33 AM 09/26/2023 7:44 PM Healthcare Agents on File Name Relationship Healthcare Agent Relationshi p Communication Mike David Son Health Care Agent [id number] (Home) Malinda Brito Daughter First Alternate Health Care Agent Healthcare Agents on File Name Relationship Healthcare Agent Relationsfl p Communication Mike David Son Health Care [...] 10 :44am GERD (gastroesophageal reflux disease) A ug2023 10:44am History of cataract extraction with lens [...] B12 deficiency Thrombocytosis Vision blurred Temporal arteritis ([facility]) Procedures Follow-up with primary care provider Bart Milian MD [address] [address] Referral ID Status Reason Start Date Expiration Date V isits Requested Visits Authorized [id number] Pending Review 09/26/2023 09/25/2024 1 1 Specialty Diagnoses / Procedures Referred By Jessica t Referred To Contact Procedures Adult diet Bart Milian MD [address] [place] [address] Referral ID Status Reason Start Date Expiration Date V isits Requested Visits Authorized [id number] Pending Review 09/26/2023 09/25/2024 1 1 Additional Source Comments INFORMATION SOURCE (unrecogn ized section and content) DATE CREATED AUTHOR 11/18/2021 [facility] DATE CREATED AUTHOR AUTHOR'S ORGANIZ ATION 01/31/2023 [facility] DATE CREATED AUTHOR AUTHOR'S ORGANIZ ATION 04/15/2023 [facility] DATE CREATED AUTHOR AUTHOR'S ORGANIZ ATION 10/04/2023 [facility] DATE CREATED AUTHOR AUTHOR'S ORGANIZ ATION 07/24/2024 [facility] DATE CREATED AUTHOR AUTHOR'S ORGANIZ ATION 10/12/2024 [facility] DATE CREATED AUTHOR AUTHOR'S ORGANIZ ATION 11/15/2024 [facility] Care Teams (unrecognized sec tion and content) Team Status: Active Member Role Status Dates Giovanna Graf APRN BROOMCORN SEEDER-C Primary Care Provider Active Team Status: Inactive Member Role Status Dates Giovanna Graf APRN [employer] SEEDER-C Primary Care Provider, Attending Provider Active Start: October 16, 2023 End: October 16, 2023 Team Status: Active Member Role Status Dates Giovanna Graf APRN [employer] SEEDER-C Primary Care Provider, Attending Provider Active Start: October 30, 2023 Team Status: Active Member Role Status Dates Giovanna Graf APRN [employer] SEEDER-C Primary Care Provider Active Start: December 29, 2023 Jt Jasso MD Attending Provider Active S tart: December 29, 2023 Team Status: Inactive Member Role Status Dates Giovanna Graf APRN [employer] SEEDER-C Primary Care Provider, Attending Provider Active Start: December 29, 2023 End: December 29, 2023 Team Status: Active Member Role Status Dates Giovanna REINA Graf [employer] SEEDER-C Primary Care Provider, Attending Provider Active Start: March 05, 2024 Team Status: Inactive Member Role Status Dates Giovanna REINA Graf [employer] SEEDER-C Primary Care Provider, Attending Provider Active Start: April 13, 2024 End: April 13, 2024 Team Status: Active Member Role Status Dates Giovannaoziel Graf APRN [employer] SEEDER-C Primary Care Provider Active Start: April 302023 Jt Jasso MD Attending Provider Active S tart: April 30, 2024 Team Status: Active Member Role Status Dates Giovanna Graf APRN [employer] SEEDER-C Primary Care Provider, Attending Provider Active Start: July 07, 2024 Team Status: Inactive Member Role Status Dates Giovanna REINA Graf [employer] SEEDER-C Primary Care Provider, Attending Provider Active Start: July 12, 2024 End: July 12, 2024 Lead Printer Relationship Specialty Start Date End Date Giovanna Graf APRN-BROOMCORN SEEDER [address] [place] [address] PCP - General Nurse Practitioner 10/10/23 Lead Printer Relationship Specialty Start Date End Date Giovanna Graf APRN-BROOMCORN SEEDER [address] [place] [address] PCP - General Nurse Practitioner 10/10/23 Lead Printer Relationship Specialty Start Date End Date John Patel DO [address] [place] [address] PCP - General 01/23/17 Lead Printer Relationship Specialty Start Date End Date John Patel DO [address] [place] [address] PCP - General 01/23/17 Lead Printer Relationship Specialty Start Date End Date ZekejenBrookeGiovannaREINA-BROOMCORN SEEDER [address] [facility] [place] [address] PCP - General Nurse Practitioner 10/10/23 Lead Printer Relationship Specialty Start Date End Date ZekebrendanBrooke aguiarGiovannaREINA massey-SAMRA [address] [facility] [place] [address] PCP - General Nurse Practitioner 10/10/23 Team Status: Inactive Member Role Status Dates Giovanna Graf APRN [employer] SEEDER-C Primary Care Provider Active Start: July 162023 End: July 16, 2024 Angel Amanda DO Attending Provider Active Sta rt: July 16, 2024 End: July 16, 2024 Team Status: Active Member Role Status Dates Giovanna Graf APRN [facility] Primary Care Provider Active Start: September 02, 2024 Jt Jasso MD Attending Provider Active S tart: September 02, 2024 Team Status: Inactive Member Role Status Dates Giovanna Graf APRN [facility] Primary Care Provider, Attending Provider Active Start: [...] Referred By Jessica t Referred To Contact Diagnoses Vision blurred Stroke-like symptoms CVA symptoms Tono Pan MD [address] [place] [address] Referral ID Status Reason Start Date Expiration Date Visits Re quested Visits Authorized [id number] 1 1 Reason Comments Follow-up Hospital discharge f ollow up. Recent TAB. Reason Onset Date Comments Med Refill 10/17/2023 Reason Comments Follow-up Scheduled Active and Recently Administ ered Medications (unrecognized section and content) Medication Order 09/24/2023 09/25/2023 09/26/2023 cyanocobalamin tablet 1,000 mcg 1,000 mcg, oral, Daily, First dose on Fri09/23/23 at 1400 0837 (Given - Provider: Kimberly Chin, ASHIA) 0613 ([facility] Hold - Provider: Automatic Transfer Provider - Reason: Patient not available)0900 (Dose Auto Held - Provider: Automatic Transfer Provider)1151 ([facility] Unhold - Provider: Automatic Transfer Provider) 0857 (Given - Provider: Caryn Briceno, RN) enoxaparin (LOVENOX) syringe 40 mg 40 mg, subcutaneous, Daily, First dose on Fri09/23/23 at 1415, Look-alike/sound-alike medication - verify indication for use. 0836 (Given - Provider: Kimberly Chin RN) 0613 ([facility] Hold - Provider: Automatic Transfer Provider - Reason: Patient not available)0900 (Dose Auto Held - Provider: Automatic Transfer Provider)1151 ([facility] Unhold - Provider: Automatic Transfer Provider) [...] Auto Held - Provider: Automatic Transfer Provider)1151 ([facility] Unhold - Provider: Automatic Transfer Provider) [...] Auto Held - Provider: Automatic Transfer Provider)115 ([facility] Unhold - Provider: Automatic Transfer Provider)2100 [...] Transfer Provider - Reason: Patient not available)1151 ([facility] Unhold - Provider: Automatic Transfer Provider) dextrose 5 % (D5W) infusion 100 mL/hr, intravenous, Continuous PRN, blood glucose less than 70 mg/dL, Starting on Fri09/23/23 at 0032, Use immediately following dextrose 50% or glucagon treatment for patients who are unconscious or NPO. Contact prescriber for additional orders. If blood glucose is not greater than 70 mg/dL after initial treatment, repeat treatment. 0613 ([facility] Hold - Provider: Automatic Transfer Provider - Reason: Patient not available)1151 ([facility] Unhold - Provider: Automatic Transfer Provider) [...] repeat treatment. VESICANT (RED) Warning: HYPERTONIC solution. 0613 ([facility] Hold - Provider: Automatic Transfer Provider - Reason: Patient not available)1151 ([facility] Unhold - Provider: Automatic Transfer Provider) fentaNYL (SUBLIMAZE) injection 50 mcg (CANCELED) 50 mcg, intravenous, Every 5 min PRN, Pain Scale 6-10, Starting on Carrie 09/25/23 at 0924, PACU (only), Up to a maximum dose of 150 mcg Look-alike/sound-alike medication - verify indication for use. 0958 (Given - Provider: Jennifer Lawton, ASHIA)1048 (Given - Provider: Jennifer Lawton, ASHIA) gadoteridoL (PROHANCE) injection 5.26 mmol 10.52 mL [...] mg/dL after initial treatment, repeat treatment. 0613 ([facility] Hold - Provider: Automatic Transfer Provider - Reason: Patient not available)1151 ([facility] Unhold - Provider: Automatic Transfer Provider) ondansetron (PF) (ZOFRAN) injection 4 mg 4 mg, intravenous, Every 8 hours PRN, nausea, vomiting, Starting on Fri09/23/23 at 0032, Administer over 2-5 minutes. 0613 ([facility] Hold - Provider: Automatic Transfer Provider - Reason: Patient not available)1151 ([facility] Unhold - Provider: Automatic Transfer Provider) sennosides-docusate sodium (SENOKOT-S) 8.6-50 mg 1 tablet 1 tablet, oral, Every 12 hours PRN, constipation, Starting on Fri09/23/23 at 0032 0613 ([facility] Hold - Provider: Automatic Transfer Provider - Reason: Patient not available)1151 ([facility] Unhold - Provider: Automatic Transfer Provider) [...] use, Starting on Fri09/23/23 at 0032 0613 ([facility] Hold - Provider: Automatic Transfer Provider - Reason: Patient not available)1151 ([facility] Unhold - Provider: Automatic Transfer Provider) sodium chloride 0.9 % flush bag 25 mL, intravenous, at 100 mL/hr, Administer over 15 Minutes, As needed, line care, line care after IVPB administration, Starting on Fri09/23/23 at 0032 0613 ([facility] Hold - Provider: Automatic Transfer Provider - Reason: Patient not available)1151 ([facility] Unhold - Provider: Automatic Transfer Provider) [...] BE BASED ON THE PRIMARY CLINICAL RECORDS. [facility]. provides no warranty or guarantee of the accuracy or completeness of information in this document.
[2024-11-21 20:22] VITALS: BP 141/76; PULSE 95; TEMP 36.6; O2SAT 97; BMI 24.6
--- NOTE | 2024-11-21 20:32 | ED.EXTPRO1 ---
HPI - Extremity Problem General Chief complaint: Extremity Problem, Nontraumatic Stated complaint: UE PAIN Time Seen by Provider: 11/21/24 20:13 Source: patient Mode of arrival: walk-in Limitations: no limitations History of Present Illness HPI Narrative: Patient is a 79-year-old female presents to the ER with concerns of bruising to the right dorsal hand and pain to the base of thumb. Patient is legally blind, states she is mostly right-handed but uses both. She denies any fall or known injury that she can recall. Family at bedside states she has been making a beaded bracelet requiring pinching that has been repetitive. Patient appears in no distress and denies the need for anything for pain ice pack was applied. She presents with another family member being seen for an unrelated complaint. Pt denies any Polyarthralgia's. She denies any blood thinner use or easy bruising.. Related Data Home Medications ?Medication ?Instructions ?Recorded ?Confirmed aspirin 81 mg tablet,delayed 81 mg PO DAILY 11/21/24 11/21/24 release fluticasone propionate 50 1 spray intranasal Q12H 11/21/24 11/21/24 mcg/actuation nasal spray,suspension multivitamin (Daily Multi-Vitamin 1 tab PO DAILY 11/21/24 11/21/24 tablet) prednisone 2.5 mg tablet 2.5 mg PO DAILY 11/21/24 11/21/24 tocilizumab 162 mg/0.9 mL 162 mg subcut Q14D 11/21/24 11/21/24 subcutaneous pen injector (Actemra ACTPen) Previous Rx's ?Medication ?Instructions ?Recorded cyclobenzaprine 10 mg tablet 10 mg PO TID PRN muscle spasm #20 08/03/23 tabs ibuprofen 800 mg tablet 800 mg PO Q8H PRN pain #20 tabs 08/03/23 methocarbamol 500 mg tablet 500 mg PO Q8H PRN muscle pain #15 01/08/24 tabs tramadol 50 mg tablet 50 mg PO Q4H PRN pain 2 days #12 01/08/24 tabs Allergies Allergy/AdvReac Type Severity Reaction Status Date / Time Penicillins Allergy Mild Flushing Verified 11/21/24 20:26 Review of Systems ROS Constitutional Denies: fever, chills or change in weight Eyes Denies: change in vision or blurry vision Ears, nose, mouth, and throat Denies: throat pain or neck pain Cardiovascular Denies: chest pain, palpitations or edema Respiratory Denies: shortness of breath, cough or wheezing Gastrointestinal Denies: abdominal pain or nausea Musculoskeletal Reports: extremity pain (right hand); Denies: back pain or neck pain Integumentary/Breast Denies: rash, itching or redness Neurological Denies: headache or numbness in extremities Psychiatric Denies: anxiety or mood swings Endocrine Denies: excessive urination Hematologic/Lymphatic Denies: easy bruising or easy bleeding PFSH PFSH Medical History Acid reflux ?K21.9 - Gastro-esophageal reflux disease without esophagitis (ICD-10) Kidney calculi ?N20.0 - Calculus of kidney (ICD-10) Neck pain ?M54.2 - Cervicalgia (ICD-10) Surgical History History of bilateral tubal ligation ?Z98.51 - Tubal ligation status (ICD-10) History of phacoemulsification of cataract of both eyes with intraocular lens implantation ?Z98.41 - Cataract extraction status, right eye (ICD-10) ?Z98.42 - Cataract extraction status, left eye (ICD-10) ?Z96.1 - Presence of intraocular lens (ICD-10) Hx of appendectomy ?Z90.49 - Acquired absence of other specified parts of digestive tract (ICD-10) Social History Smoking status: Former smoker Little interest or pleasure in doing things: not at all Feeling down, depressed, or hopeless: not at all Exam Narrative Exam Narrative: Nurse's notes and vital signs reviewed. Patient is not hypoxic. General: The patient appears well and in no apparent distress. Patient is resting comfortably on cart. Skin: Warm, dry, no pallor noted. Mild bruising without significant hematoma formation to the dorsum of the right hand Head: Normocephalic, atraumatic Eye: Normal conjunctiva Respiratory: Patient is in no distress Musculoskeletal: The Right wrist shows no obvious deformity. There was no swelling noted. The patient had full range of motion without pain The patient had tenderness noted base of the thumb CMC joint positive pain with grind sign of the thumb. The patient had no tenderness in the anatomical snuff box. The patient had no pain with axial loading of the thumb. Pulses are intact at brachial and radial 2+. There was no deficit at the elbow or shoulder. The patient has normal capillary refill to all distal digits. The patient has no evidence of cyanosis or mottling. The patient is able to flex and extend all digits without difficulty. Neurological: A&O x4, normal sensory, normal motor Psychiatric: Cooperative Constitutional Vital Signs, click to edit/add: Last Vital Signs Temp 97.9 F 11/21/24 20:22 Pulse 95 H 11/21/24 20:22 Resp 18 11/21/24 20:22 BP 141/76 11/21/24 20:22 Pulse Ox 97 11/21/24 20:22 O2 Del Method Room Air 11/21/24 20:22 Course Vital Signs Vital signs: Vital Signs Temperature 97.9 F 11/21/24 20:22 Pulse Rate 95 H 11/21/24 20:22 Respiratory Rate 18 11/21/24 20:22 Blood Pressure 141/76 11/21/24 20:22 Pulse Oximetry 97 11/21/24 20:22 Oxygen Delivery Method Room Air 11/21/24 20:22 Temperature 97.9 F 11/21/24 20:22 Pulse Rate 95 H 11/21/24 20:22 Respiratory Rate 18 11/21/24 20:22 Blood Pressure 141/76 11/21/24 20:22 Pulse Oximetry 97 11/21/24 20:22 Oxygen Delivery Method Room Air 11/21/24 20:22 MDM - Extremity (Nontraumatic) MDM Narrative Medical decision making narrative: Discussed patient's presentation, pain legally blind, nonsuspicious bruising to the dorsum of the hand patient does have some thin skin and superficial veins., Has tenderness to the base of the thumb we discussed recent history and she has been doing a lot of pinching with the right hand putting together a beaded bracelet. X-ray was performed out of abundance of caution given the bruising and her symptoms. We discussed ice and activity modifications patient declines the need for anything for pain. She is to follow-up with orthopedics if symptoms persist for reevaluation. Preliminary x-ray results were discussed with the patient. The patient is to followup with primary care physician in next 2-3 days or to return to the emergency department should any of the signs or symptoms worsen or new symptoms develop. Patient had questions answered. The patient agrees with the following Diagnosis and Treatment plan and the patient will be discharged home. Imaging Data right hand 3 view: Attestation: I personally reviewed and interpreted this imaging study as follows: My impression: 3 view right hand no acute fracture notable degenerative changes at the wrist joint and the CMC joint of the thumb. Discharge Plan Discharge Chief Complaint: Extremity Problem, Nontraumatic Clinical Impression: Contusion of hand, right, Arthritis of carpometacarpal (CMC) joint of right thumb Patient Disposition: Home, Self-Care Time of Disposition Decision: 21:32 Condition: Good Prescriptions / Home Meds: No Action cyclobenzaprine 10 mg tablet 10 mg PO TID PRN (Reason: muscle spasm) Qty: 20 0RF ibuprofen 800 mg tablet 800 mg PO Q8H PRN (Reason: pain) Qty: 20 0RF methocarbamol 500 mg tablet 500 mg PO Q8H PRN (Reason: muscle pain) Qty: 15 0RF tramadol 50 mg tablet 50 mg PO Q4H PRN (Reason: pain) 2 Days Qty: 12 0RF Rx Instructions: M54.2 aspirin 81 mg tablet,delayed release (DR/EC) 81 mg PO DAILY Actemra ACTPen 162 mg/0.9 mL pen injector 162 mg subcut Q14D multivitamin [Daily Multi-Vitamin] Tablet 1 tab PO DAILY prednisone 2.5 mg tablet 2.5 mg PO DAILY fluticasone propionate 50 mcg/actuation spray,suspension 1 spray INTRANASAL Q12H Print Language: Kiswahili Instructions: Osteoarthritis (ED), Contusion in Adults (ED) Referrals: RENE JENKINS [Primary Care Provider] - 1 week Lawson Joyce MD [Physician] - As needed
== END 2024-11-21 21:35 | disposition home or self-care (01) ==
PROVIDERS: Emergency Provider Emergency Medicine; PCP Nurse Practitioner Family
DX: S60.221A Contusion of right hand, initial encounter (principal); M18.11 Unilateral primary osteoarthritis of first carpometacarpal joint, right hand; X50.3XXA Overexertion from repetitive movements, initial encounter; H54.8 Legal blindness, as defined in USA; Z90.49 Acquired absence of other specified parts of digestive tract; Z98.51 Tubal ligation status; Z87.891 Personal history of nicotine dependence
CPT/HCPCS: 73130; 99283

== ENCOUNTER 2024-12-10 01:28 | Emergency (ER) | payer MEDICARE, SELFPAY ==
[2024-12-10] VITALS (20 sets, daily range): BP systolic 132–179; BP diastolic 76–106; PULSE 83–102; TEMP 36.6; O2SAT 93–100
--- OUTSIDE RECORDS SUMMARY | 2024-12-10 01:39 | XMS_ITS | CCD ---
Author Organization [facility] Care Team Providers Care Web Search Evaluator Name Role Phone LEAH, DR PATO Perez Admitting Unavailalonso e LEAH, DR PATO Perez Consulting Unavailabl e REINLOURDES, DR PATO Perez Attending Unavailabl e HOUSE, DR BECKHAM Primary Care Unavailable SHANTELL GARCIA Consulting Unavailable CHANEL ., DR NICOHLAS Attending Unavailable KARAN JENKINS Consulting Unavailable JORGE, [...] Unavailable ROHRBACHER, GIOVANNA Primary Care Unavailable Rohrbacher WATCH GUARD GATE-ANESTHESIOLOGY PHYSICIAN, Giovanna Primary Care Provid er John Patel DO Primary Care Provider ALLIE HOSKINS Attending Unavailable JOHN PATEL Referring Unavailable ROHRBACHER, GIOVANNA Primary Care Unavailable MYRA COTA Attending Unavailable ROHRBACHER, GIOVANNA Referring Unavailable ROHRBACHER, GIOVANNA Primary Care Unavailable MYRA COTA Attending Unavailable ROHRBACHER, GIOVANNA Referring Unavailable ROHRBACHER, GIOVANNA Primary Care Unavailable ALTOROK NEZAM I Attending Unavailable ALTOROK NEZAM I Attending Unavailable ALTOROK, NEZAM I Attending Unavailable Allergies Allergy Classification Reported Allergen(s) Allergy Type Date of Onset Reaction(s) Facility (1 source) Penicillins Drug allergy (disorder) [facility] Repository (15 sources) Penicillin; Translations: [PENICILLIN] Drug Allergy 4 Confusion, Fever [facility] Repository (1 source) Ciprofloxacin; Translations: [CIPROFLOXACIN] Drug Allergy 4 [facility] Repository Medications Current Medications Medication Drug [...] 23, 2024 7:38am administer into each nostril shhrdhejdfyy-dpcpplga-wfqwxp (MULTIVITAMIN 50 PLUS) tablet (1 source) Start: 10-06-2024 End: 10-06-2025 rnjlttgsjogv-ttreypgv-jmiajh (MULTIVITAMIN 50 PLUS) tablet Take 1 tablet [...] hours as needed for muscle spasticity 30 10 October 13, 2024 12:00am 0.9 ml tocilizumab [...] 12:02am docusate sodium 50 mg / sennosides, long term 8.6 mg oral tablet (1 source) Start: [...] sources) Other hyperlipidemia; Translations: [Other hyperlipidemia] Onset: 10-06-2024 Chronic Esophageal disorders (8 sources) Gastroesophageal reflux disease; Translations: [Gastro-esophageal reflux disease without esophagitis] 10-16-2023 Chronic Genitourinary symptoms and ill-defined conditions (1 source) Increased frequency of urination; Translations: [Frequency of micturition] 07-12-2024 Episodic Immunizations and screening for infectious disease (4 sources) Encounter for screening for other viral diseases; Translations: [Other specified abnormal immunological findings in serum] Onset: 05-05-2024 Episodic Neoplasms of unspecified nature or uncertain [...] examination] 10-16-2023 Episodic Other aftercare (2 sources) 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 [facility] performed training in the past. Given phone number for pharmacy. [facility] Refillon 11-23-2024 Refill [id number] Carlyle David 1945 F Date Provider Department Center 11/23/2024 LINDSAY JACKSON [facility] No family history on file Reason for Visit and Comments: Med Refill [[id number]] [facility] 11-15-2024 36 Informed CBC, ESR , Albumin and globulin level received from [facility] 36 Spoke with daughter, informed that we had not received any lab results on the patient. Daughter states that they were completed earlier this month at [facility]. LVM at [facility] requesting results of lab be faxed to our office [facility]. Fax number and contact number left on voicemail with med records. Awaiting results [facility] 36 LVM again returning daughter's call regarding Lab results. [facility] 11-12-2024 36 Voicemail, patient's daughter, Malinda, would like a callback at [phone] to discuss lab results [facility] Telephoneon 11-12-2024 Telephone [phone] Carlyle David 1945 F Date Provider Department Center 11/12/2024 JT CROOK I [facility] No family history on file [facility] 11-11-2024 36 LVM returning call. I do not have any recent lab results in the patient's chart. [facility] 36 Patient daughter dalia led about lab results. [facility] 11-02-2024 29 Addended by: LINDSAY TIERNEY on: 11/02/2024 10:24 AM Modules accepted: Orders [facility] 11-02-2024 36 Spoke with patient's daughter. The orders were not faxed to [facility] last week. I refaxed the standing orders and mailed hard copies to patient. [facility] 36 Spoke with patient's daughter and they stated that [facility] did not receive. I will fax again and mail hard copies to patient. [facility] 36 The patient daught called stating they would like to speak with the MT to discuss the shot the patient receives every 14 days is not in the chart as well as lab apers are needing to be faxed over to [facility] because they have not been received. [facility] 36on 10-28-2024 36 Printed patient labs and fax them to the fax number provided. [facility] Orders Onlyon 10-28-2024 Orders Only [id number] Carlyle David 1945 F Date Provider Department Center 10/28/2024 JT CROOK I [facility] No family history on file [facility] 36on 10-25-2024 36 PT daughter called i robert requesting labs to be sent to john. Fax number provided is [phone]. Daughter stated that she wanted to know if she can have a standard order sent over from now on since these labs are required every three month. [facility] Telephoneon 10-25-2024 Telephone [phone] Carlyle David 1945 F Date Provider Department Center 10/25/2024 JT CROOK I [facility] No family history on file [facility] Follow-Upon 10-06-2024 Follow-Up [id number] Carlyle David 1945 F [facility] Department [place] 10/06/2024 JT CROOK I [facility] No family history on file Level of Service:23128 ME OFFICE/OUTPATIENT ESTABLISHED MOD MDM 30 MIN [facility] Basophils Auto (Bld) [#/Vol] on 09-02-2024 Basophils (Bld) [#/Vol] Automated basoph il count 0.0-0.1 [facility] Basophils/100 WBC Auto (Bld) on 09-02-2024 Basophils/100 WBC (Bld) Automated basophil % 0. 2-2.0 [facility] Cholesterol in LDL Calc [Mas s/Vol]on 09-02-2024 Cholesterol in LDL [Mass/Vol] Cholesterol in LDL [Mass/volume] in Serum or Plasma by calculation [facility] Comment on above: <100 mg/dl [id number] 0-129 mg/dl NEAR OR ABOVE [id number] mg/dl BORDERLINE [id number] mg/dl HIGH>190 mg/dl VERY HIGH Cholesterol in VLDL Calc [Ma ss/Vol]on 09-02-2024 Cholesterol in VLDL [Mass/Vol] Cholesterol in VLDL [Mass/volume] in Serum or Plasma by calculation [facility] Eosinophils/100 WBC Auto (Bl d)on 09-02-2024 Eosinophils/100 WBC (Bld) Automated eosinophil % 0.9-7.0 [facility] Erythrocyte distribution wid th Auto (RBC) [Ratio]on 09-02-2024 Erythrocyte distribution width (RBC) [Ratio] Erythrocyte distribution width [Ratio] by Automated count 11.0-15.0 [facility] Estimated glomerular filtrat ion rate (GFR) non- Americanon 09-02-2024 GFR/1.73 sq M.predicted among non-blacks MDRD (S/P/Bld) [Vol rate/Area] Estimated glomerular filtration rate (GFR) non- >=60 mL/min/1.73 m 2 [facility] Globulin Calc (S) [Mass/Vol] on 09-02-2024 Globulin (S) [Mass/Vol] Serum globulin measurement by calculation (mass/volume) [facility] Hematocrit Auto (Bld) [Volum e fraction]on 09-02-2024 Hematocrit (Bld) [Volume fraction] Hematocrit [Volume Fraction] of Blood by Automated count 36.0-48.0 [facility] Hemoglobin [Mass/volume] in Bloodon 09-02-2024 Hemoglobin (Bld) [Mass/Vol] Hemoglobin [Mass/volume] in Blood 12.0-16.0 [facility] Iron binding capacity [Mass/ volume] in Serum or Plasmaon 09-02-2024 Iron binding capacity [Mass/Vol] Iron binding capacity [Mass/volume] in Serum or Plasma 250.0-450.0 [facility] Iron saturation [Mass Fracti on] in Serum or Plasmaon 09-02-2024 Iron saturation [Mass fraction] Iron saturation [Mass Fraction] in Serum or Plasma [facility] Laboratory - Chemistry and C hemistry - challengeon 09-02-2024 Albumin [Mass/Vol] 3.6 g/dL 3.4-5.0 [facility] ALP [Catalytic activity/Vol] 62 U/L 46-116 [facility] ALT [Catalytic activity/Vol] 25 U/L 14-59 [facility] AST [Catalytic activity/Vol] 19 U/L 15-37 [facility] Bilirubin [Mass/Vol] 0.5 mg/dL 0.2-1.0 [facility] Calcium [Mass/Vol] 8.9 mg/dL 8.5-10.1 [facility] Chloride [Moles/Vol] 107 mmol/L 98-107 [facility] Cholesterol [Mass/Vol] 315 mg/dL High <=200 [facility] Cholesterol in HDL [Mass/Vol] 99 mg/dL High 40-60 [facility] Comment on above: > or =60 mg/dl - LOW CARDIOVASCULAR RISK<40 mg/dl - HIGH CARDIOVASCULAR RISK CO2 [Moles/Vol] 32.2 mmol/L High 21.0-32.0 [facility] Cobalamin (Vitamin B12) [Mass/Vol] 1376 pg/mL Abnormal 232-1245 [facility] Comment on above: Performed at: - [facility] [address] [id number] Director: Bobby Mckeon PhD, Phone: [phone] Creatinine [Mass/Vol] 0.89 mg/dL 0.55-1.02 [facility] Ferritin [Mass/Vol] 363.0 ng/mL High 8.0-252.0 [facility] GFR/1.73 sq M.predicted MDRD (S/P/Bld) [Vol rate/Area] mL/min/{1.73_m2} >=60 mL/min/1.73 m 2 [facility] Glucose [Mass/Vol] 85 mg/dL 74-106 [facility] Iron [Mass/Vol] 121.0 ug/dL 50.0-170.0 [facility] Potassium [Moles/Vol] 4.0 mmol/L 3.5-5.1 [facility] Protein [Mass/Vol] 6.2 g/dL Low 6.4-8.2 [facility] Sodium [Moles/Vol] 144 mmol/L 136-145 [facility] Triglyceride [Mass/Vol] 86 mg/dL <=150 F [facility] Urea nitrogen [Mass/Vol] 31.0 mg/dL High 7.0-18.0 [facility] Urea nitrogen/Creatinine [Mass ratio] 34.8 mg/mg [facility] Laboratory - Hematology and Cell countson 09-02-2024 ESR (Bld) [Velocity] 3 mm/h <=30 [facility] Immature granulocytes/100 WBC (Bld) 0.0 % 0.0-0.5 [facility] Leukocytes [#/volume] correc tyrone for nucleated erythrocytes in Blood by Automated counon 09-02-2024 WBC corrected for nucl RBC Auto (Bld) [#/Vol] Leukocytes [#/volume] corrected for nucleated erythrocytes in Blood by Automated coun 4.0-11.0 [facility] Lymphocytes Auto (Bld) [#/Vo l]on 09-02-2024 Lymphocytes (Bld) [#/Vol] Lymphocytes [#/volume] in Blood by Automated count 1.2-3.8 [facility] Lymphocytes/100 WBC Auto (Bl d)on 09-02-2024 Lymphocytes/100 WBC (Bld) Lymphocytes/100 leukocytes in Blood by Automated count 20.5-60.0 [facility] MCH Auto (RBC) [Entitic mass ]on 09-02-2024 MCH (RBC) [Entitic mass] MCH [Entitic ma ss] by Automated count 26.7-34.0 [facility] MCHC Auto (RBC) [Mass/Vol]on 09-02-2024 MCHC (RBC) [Mass/Vol] MCHC [Mass/volume] by Automated count 29.9-35.2 [facility] MCV Auto (RBC) [Entitic vol] on 09-02-2024 MCV (RBC) [Entitic vol] MCV [Entitic vol ume] by Automated count 81.0-99.0 [facility] Monocytes Auto (Bld) [#/Vol] on 09-02-2024 Monocytes (Bld) [#/Vol] Automated blood monocyte count 0.3-0.8 [facility] Monocytes/100 WBC Auto (Bld) on 09-02-2024 Monocytes/100 WBC (Bld) Automated monocyte % 1. 7-12.0 [facility] Neutrophils Auto (Bld) [#/Vo l]on 09-02-2024 Neutrophils (Bld) [#/Vol] Neutrophils [#/volume] in Blood by Automated count 1.4-6.5 [facility] Neutrophils/100 WBC Auto (Bl d)on 09-02-2024 Neutrophils/100 WBC (Bld) Automated neutrophil % Low 43.0-75.0 [facility] No Panel Informationon 09-02 Eosinophils # (Auto) 0.2 10 3/uL 0.0-0.7 [facility] Immature Granulocyte # (Auto) 0.00 10 3/uL 0.00-0.03 [facility] Platelet mean volume Auto (B ld) [Entitic vol]on 09-02-2024 Platelet mean volume (Bld) [Entitic vol] Platelet mean volume [Entitic volume] in Blood by Automated count Low 9.5-13.5 [facility] Platelets Auto (Bld) [#/Vol] on 09-02-2024 Platelets (Bld) [#/Vol] Platelets [#/vol ume] in Blood by Automated count 150-450 [facility] RBC Auto (Bld) [#/Vol]on RBC (Bld) [#/Vol] Erythrocytes [#/volu me] in Blood by Automated count Low 4.20-5.40 [facility] Serum or plasma albumin/glob ulin mass ratioon 09-02-2024 Albumin/Globulin [Mass ratio] Serum or plasma albumin/globulin mass ratio [facility] Serum or plasma anion gap de terminationon 09-02-2024 Anion gap [Moles/Vol] Serum or plasma an ion gap determination [facility] Serum or plasma total choles terol/high density lipoprotein (HDL) cholesterol mass artie 09-02-2024 Cholesterol.total/Choles terol in HDL [Mass ratio] Serum or plasma total cholesterol/high density lipoprotein (HDL) cholesterol mass rat [facility] Comment on above: 3.3 - 4.4 LOW RISK4. 4 - 7.1 AVERAGE RISK7.1 - 11.0 MODERATE RISK>11.0 HIGH RISK 36on 08-13-2024 36 Patients daughter contacted office requesting patient lab orders be faxed to [facility]. Faxed orders to number on their website, . Mailed copies of labs to patient as well. Normal [facility] Laboratory - Chemistry and C hemistry - challengeon 07-16-2024 Bilirubin Ql (U) Negative [facility] Glucose (U) [Mass/Vol] [facility] Ketones Ql (U) Negative [facility] pH (U) 6.5 [pH] [facility] Specific gravity (U) [Rel density] 1.000 [facility] Urobilinogen (U) [Mass/Vol] 0.2 mg/dL [facility] Laboratory - Specimen inform ationon 07-16-2024 Appearance (U) cloudy [facility] Color (U) lightyellow [facility] Laboratory - Urinalysison Leukocyte esterase Test strip Ql (U) Negative [facility] Nitrite Ql (U) Negative [facility] Protein Ql (U) Negative [facility] No Panel Informationon 07-16 Urine Occult Blood Negative [facility] Follow-Upon 05-05-2024 Follow-Up [id number] Carlyle David 1945 F Date Provider Department Center 05/05/2024 Juan F-JT JASSO I [facility] No family history on file Level of Service:60857 ME OFFICE/OUTPATIENT ESTABLISHED LOW [facility] 20 MIN Reason for Visit and Comments: Follow-up [418805] - 1 headache a few weeks ago. Increased itching for a few months Normal [facility] Basophils Auto (Bld) [#/Vol] on 04-30-2024 Basophils (Bld) [#/Vol] Automated basoph il count 0.0-0.1 [facility] Basophils/100 WBC Auto (Bld) on 04-30-2024 Basophils/100 WBC (Bld) Automated basophil % 0. 2-2.0 [facility] Cholesterol in LDL Calc [Mas s/Vol]on 04-30-2024 Cholesterol in LDL [Mass/Vol] Cholesterol in LDL [Mass/volume] in Serum or Plasma by calculation [facility] Comment on above: <100 mg/dl [id number] 0-129 mg/dl NEAR OR ABOVE [id number] mg/dl BORDERLINE [id number] mg/dl HIGH>190 mg/dl VERY HIGH Cholesterol in VLDL Calc [Ma ss/Vol]on 04-30-2024 Cholesterol in VLDL [Mass/Vol] Cholesterol in VLDL [Mass/volume] in Serum or Plasma by calculation [facility] Eosinophils/100 WBC Auto (Bl d)on 04-30-2024 Eosinophils/100 WBC (Bld) Automated eosinophil % 0.9-7.0 [facility] Erythrocyte distribution wid th Auto (RBC) [Ratio]on 04-30-2024 Erythrocyte distribution width (RBC) [Ratio] Erythrocyte distribution width [Ratio] by Automated count 11.0-15.0 [facility] Estimated glomerular filtrat ion rate (GFR) non- Americanon 04-30-2024 GFR/1.73 sq M.predicted among non-blacks MDRD (S/P/Bld) [Vol rate/Area] Estimated glomerular filtration rate (GFR) non- >=60 [facility] Globulin Calc (S) [Mass/Vol] on 04-30-2024 Globulin (S) [Mass/Vol] Serum globulin measurement by calculation (mass/volume) [facility] Hematocrit Auto (Bld) [Volum e fraction]on 04-30-2024 Hematocrit (Bld) [Volume fraction] Hematocrit [Volume Fraction] of Blood by Automated count 36.0-48.0 [facility] Hemoglobin [Mass/volume] in Bloodon 04-30-2024 Hemoglobin (Bld) [Mass/Vol] Hemoglobin [Mass/volume] in Blood 12.0-16.0 [facility] Laboratory - Chemistry and C hemistry - challengeon 04-30-2024 Albumin [Mass/Vol] 3.3 g/dL Low 3.4-5.0 [facility] ALP [Catalytic activity/Vol] 49 U/L 46-116 [facility] ALT [Catalytic activity/Vol] 29 U/L 14-59 [facility] AST [Catalytic activity/Vol] 23 U/L 15-37 [facility] Bilirubin [Mass/Vol] 0.5 mg/dL 0.2-1.0 [facility] Calcium [Mass/Vol] 9.0 mg/dL 8.5-10.1 [facility] Chloride [Moles/Vol] 105 mmol/L 98-107 [facility] Cholesterol [Mass/Vol] 302 mg/dL High <=200 [facility] Cholesterol in HDL [Mass/Vol] 95 mg/dL High 40-60 [facility] Comment on above: > or =60 mg/dl - LOW CARDIOVASCULAR RISK<40 mg/dl - HIGH CARDIOVASCULAR RISK CO2 [Moles/Vol] 32.1 mmol/L High 21.0-32.0 [facility] Creatinine [Mass/Vol] 0.87 mg/dL 0.55-1.02 [facility] GFR/1.73 sq M.predicted MDRD (S/P/Bld) [Vol rate/Area] mL/min/{1.73_m2} >=60 [facility] Glucose [Mass/Vol] 85 mg/dL 74-106 [facility] Potassium [Moles/Vol] 3.8 mmol/L 3.5-5.1 [facility] Protein [Mass/Vol] 5.9 g/dL Low 6.4-8.2 [facility] Sodium [Moles/Vol] 143 mmol/L 136-145 [facility] Triglyceride [Mass/Vol] 87 mg/dL <=150 F [facility] Urea nitrogen [Mass/Vol] 25.0 mg/dL High 7.0-18.0 [facility] Urea nitrogen/Creatinine [Mass ratio] 28.7 mg/mg [facility] Laboratory - Hematology and Cell countson 04-30-2024 ESR (Bld) [Velocity] 4 mm/h <=30 [facility] Immature granulocytes/100 WBC (Bld) 0.2 % 0.0-0.5 [facility] Leukocytes [#/volume] correc tyrone for nucleated erythrocytes in Blood by Automated counon 04-30-2024 WBC corrected for nucl RBC Auto (Bld) [#/Vol] Leukocytes [#/volume] corrected for nucleated erythrocytes in Blood by Automated coun 4.0-11.0 [facility] Lymphocytes Auto (Bld) [#/Vo l]on 04-30-2024 Lymphocytes (Bld) [#/Vol] Lymphocytes [#/volume] in Blood by Automated count 1.2-3.8 [facility] Lymphocytes/100 WBC Auto (Bl d)on 04-30-2024 Lymphocytes/100 WBC (Bld) Lymphocytes/100 leukocytes in Blood by Automated count 20.5-60.0 [facility] MCH Auto (RBC) [Entitic mass ]on 04-30-2024 MCH (RBC) [Entitic mass] MCH [Entitic ma ss] by Automated count 26.7-34.0 [facility] MCHC Auto (RBC) [Mass/Vol]on 04-30-2024 MCHC (RBC) [Mass/Vol] MCHC [Mass/volume] by Automated count 29.9-35.2 [facility] MCV Auto (RBC) [Entitic vol] on 04-30-2024 MCV (RBC) [Entitic vol] MCV [Entitic vol ume] by Automated count 81.0-99.0 [facility] Monocytes Auto (Bld) [#/Vol] on 04-30-2024 Monocytes (Bld) [#/Vol] Automated blood monocyte count 0.3-0.8 [facility] Monocytes/100 WBC Auto (Bld) on 04-30-2024 Monocytes/100 WBC (Bld) Automated monocyte % 1. 7-12.0 [facility] Neutrophils Auto (Bld) [#/Vo l]on 04-30-2024 Neutrophils (Bld) [#/Vol] Neutrophils [#/volume] in Blood by Automated count 1.4-6.5 [facility] Neutrophils/100 WBC Auto (Bl d)on 04-30-2024 Neutrophils/100 WBC (Bld) Automated neutrophil % Low 43.0-75.0 [facility] No Panel Informationon 04-30 Eosinophils # (Auto) 0.2 10 3/uL 0.0-0.7 [facility] Immature Granulocyte # (Auto) 0.01 10 3/uL 0.00-0.03 [facility] Platelet mean volume Auto (B ld) [Entitic vol]on 04-30-2024 Platelet mean volume (Bld) [Entitic vol] Platelet mean volume [Entitic volume] in Blood by Automated count Low 9.5-13.5 [facility] Platelets Auto (Bld) [#/Vol] on 04-30-2024 Platelets (Bld) [#/Vol] Platelets [#/vol ume] in Blood by Automated count 150-450 [facility] RBC Auto (Bld) [#/Vol]on RBC (Bld) [#/Vol] Erythrocytes [#/volu me] in Blood by Automated count Low 4.20-5.40 [facility] Serum or plasma albumin/glob ulin mass ratioon 04-30-2024 Albumin/Globulin [Mass ratio] Serum or plasma albumin/globulin mass ratio [facility] Serum or plasma anion gap de terminationon 04-30-2024 Anion gap [Moles/Vol] Serum or plasma an ion gap determination [facility] Serum or plasma total choles terol/high density lipoprotein (HDL) cholesterol mass artie 04-30-2024 Cholesterol.total/Choles terol in HDL [Mass ratio] Serum or plasma total cholesterol/high density lipoprotein (HDL) cholesterol mass rat [facility] Comment on above: 3.3 - 4.4 LOW RISK4. 4 - 7.1 AVERAGE RISK7.1 - 11.0 MODERATE RISK>11.0 HIGH RISK Basophils Auto (Bld) [#/Vol] on 03-05-2024 Basophils (Bld) [#/Vol] 0.0 10 3/uL 0.0-0.1 [facility] Basophils/100 WBC Auto (Bld) on 03-05-2024 Basophils/100 WBC (Bld) 0.6 % 0.2-2.0 F [facility] Eosinophils/100 WBC Auto (Bl d)on 03-05-2024 Eosinophils/100 WBC (Bld) 1.7 % 0.9-7.0 [facility] Erythrocyte distribution wid th Auto (RBC) [Ratio]on 03-05-2024 Erythrocyte distribution width (RBC) [Ratio] 13.7 % 11.0-15.0 [facility] Hematocrit Auto (Bld) [Volum e fraction]on 03-05-2024 Hematocrit (Bld) [Volume fraction] 37.7 % 36.0-48.0 [facility] Hemoglobin [Mass/volume] in Bloodon 03-05-2024 Hemoglobin (Bld) [Mass/Vol] 12.2 g/dL 12.0-16.0 [facility] Iron binding capacity [Mass/ volume] in Serum or Plasmaon 03-05-2024 Iron binding capacity [Mass/Vol] 231.0 ug/dL Low 250.0-450.0 [facility] Iron saturation [Mass Fracti on] in Serum or Plasmaon 03-05-2024 Iron saturation [Mass fraction] 44.6 % [facility] Laboratory - Chemistry and C hemistry - challengeon 03-05-2024 Ferritin [Mass/Vol] 234.0 ng/mL 8.0-252.0 [facility] Iron [Mass/Vol] 103.0 ug/dL 50.0-170.0 [facility] Laboratory - Hematology and Cell countson 03-05-2024 Immature granulocytes/100 WBC (Bld) 0.3 % 0.0-0.5 [facility] [facility] [#/volume] correc tyrone for nucleated erythrocytes in Blood by Automated counon 03-05-2024 WBC corrected for nucl RBC Auto (Bld) [#/Vol] 6.9 10 3/uL 4.0-11.0 [facility] Lymphocytes Auto (Bld) [#/Vo l]on 03-05-2024 Lymphocytes (Bld) [#/Vol] 3.8 10 3/uL 1.2-3.8 [facility] Lymphocytes/100 WBC Auto (Bl d)on 03-05-2024 Lymphocytes/100 WBC (Bld) 54.9 % 20.5-60.0 [facility] MCH Auto (RBC) [Entitic mass ]on 03-05-2024 MCH (RBC) [Entitic mass] 31.4 pg 26.7-34.0 [facility] MCHC Auto (RBC) [Mass/Vol]on 03-05-2024 MCHC (RBC) [Mass/Vol] 32.4 g/dL 29.9-35.2 [facility] MCV Auto (RBC) [Entitic vol] on 07-12-2024 MCV (RBC) [Entitic vol] 96.9 fL 81.0-99.0 F [facility] Monocytes Auto (Bld) [#/Vol] on 03-05-2024 Monocytes (Bld) [#/Vol] 0.6 10 3/uL 0.3-0.8 [facility] Monocytes/100 WBC Auto (Bld) on 03-05-2024 Monocytes/100 WBC (Bld) 8.7 % 1.7-12.0 F [facility] Neutrophils Auto (Bld) [#/Vo l]on 03-05-2024 Neutrophils (Bld) [#/Vol] 2.3 10 3/uL 1.4-6.5 [facility] Neutrophils/100 WBC Auto (Bl d)on 03-05-2024 Neutrophils/100 WBC (Bld) 33.8 % Low 43.0-75.0 [facility] No Panel Informationon 03-05 Eosinophils # (Auto) 0.1 10 3/uL 0.0-0.7 [facility] Immature Granulocyte # (Auto) 0.02 10 3/uL 0.00-0.03 [facility] Platelet mean volume Auto (B ld) [Entitic vol]on 03-05-2024 Platelet mean volume (Bld) [Entitic vol] 8.7 fL Low 9.5-13.5 [facility] Platelets Auto (Bld) [#/Vol] on 03-05-2024 Platelets (Bld) [#/Vol] 289 10 3/uL 150-450 [facility] RBC Auto (Bld) [#/Vol]on RBC (Bld) [#/Vol] 3.89 10 6/uL Low 4.20-5.40 [facility] Follow-Upon 01-28-2024 Follow-Up [id number] Carlyle David 1945 F Date Provider Department Center 01/28/2024 [id number] JASSO I MOCF [facility] No family history on file Level of Service:15930 ME OFFICE/OUTPATIENT ESTABLISHED MOD MDM 30 MIN Reason for Visit and Comments: Follow-up [111909] - [facility]. Neck pain with cramping Normal [facility] Basophils Auto (Bld) [#/Vol] on 12-29-2023 Basophils (Bld) [#/Vol] 0.0 10 3/uL 0.0-0.1 [facility] Basophils/100 WBC Auto (Bld) on 12-29-2023 Basophils/100 WBC (Bld) 0.3 % 0.2-2.0 F [facility] Eosinophils/100 WBC Auto (Bl d)on 12-29-2023 Eosinophils/100 WBC (Bld) 0.6 % 0.9-7.0 [facility] Erythrocyte distribution wid th Auto (RBC) [Ratio]on 12-29-2023 Erythrocyte distribution width (RBC) [Ratio] 14.8 % 11.0-15.0 [facility] Hematocrit Auto (Bld) [Volum e fraction]on 12-29-2023 Hematocrit (Bld) [Volume fraction] 39.8 % 36.0-48.0 [facility] Hemoglobin [Mass/volume] in Bloodon 12-29-2023 Hemoglobin (Bld) [Mass/Vol] 12.6 g/dL 12.0-16.0 [facility] Iron binding capacity [Mass/ volume] in Serum or Plasmaon 12-29-2023 Iron binding capacity [Mass/Vol] 241.0 ug/dL 250.0-450.0 [facility] Iron saturation [Mass Fracti on] in Serum or Plasmaon 12-29-2023 Iron saturation [Mass fraction] 51.5 % [facility] Laboratory - Chemistry and C hemistry - challengeon 12-29-2023 Iron [Mass/Vol] 124.0 ug/dL 50.0-170.0 [facility] - Hematology and Cell countson 12-29-2023 ESR (Bld) [Velocity] 5 mm/h <=30 [facility] Immature granulocytes/100 WBC (Bld) 0.8 % 0.0-0.5 [facility] Leukocytes [#/volume] correc tyrone for nucleated erythrocytes in Blood by Automated counon 12-29-2023 WBC corrected for nucl RBC Auto (Bld) [#/Vol] 8.9 10 3/uL 4.0-11.0 [facility] Lymphocytes Auto (Bld) [#/Vo l]on 12-29-2023 Lymphocytes (Bld) [#/Vol] 4.4 10 3/uL 1.2-3.8 [facility] Lymphocytes/100 WBC Auto (Bl d)on 12-29-2023 Lymphocytes/100 WBC (Bld) 49.7 % 20.5-60.0 [facility] MCH Auto (RBC) [Entitic mass ]on 12-29-2023 MCH (RBC) [Entitic mass] 31.0 pg 26.7-34.0 [facility] MCHC Auto (RBC) [Mass/Vol]on 12-29-2023 MCHC (RBC) [Mass/Vol] 31.7 g/dL 29.9-35.2 [facility] MCV Auto (RBC) [Entitic vol] on 12-29-2023 MCV (RBC) [Entitic vol] 98.0 fL 81.0-99.0 F [facility] Monocytes Auto (Bld) [#/Vol] on 12-29-2023 Monocytes (Bld) [#/Vol] 0.7 10 3/uL 0.3-0.8 [facility] Monocytes/100 WBC Auto (Bld) on 12-29-2023 Monocytes/100 WBC (Bld) 7.3 % 1.7-12.0 F [facility] Neutrophils Auto (Bld) [#/Vo l]on 12-29-2023 Neutrophils (Bld) [#/Vol] 3.7 10 3/uL 1.4-6.5 [facility] Neutrophils/100 WBC Auto (Bl d)on 12-29-2023 Neutrophils/100 WBC (Bld) 41.3 % 43.0-75.0 [facility] No Panel Informationon 12-28 Eosinophils # (Auto) 0.1 10 3/uL 0.0-0.7 [facility] Immature Granulocyte # (Auto) 0.07 10 3/uL 0.00-0.03 [facility] Platelet mean volume Auto (B ld) [Entitic vol]on 12-29-2023 Platelet mean volume (Bld) [Entitic vol] 8.3 fL 9.5-13.5 [facility] Platelets Auto (Bld) [#/Vol] on 12-29-2023 Platelets (Bld) [#/Vol] 262 10 3/uL 150-450 [facility] RBC Auto (Bld) [#/Vol]on RBC (Bld) [#/Vol] 4.06 10 6/uL 4.20-5.40 [facility] 36on 12-10-2023 36 Please review notes from [facility]. Patient should be contacting [facility] for assistance on how to proceed. Normal [facility] 36 Spoke with daughter, pt will have to pay $700 for the Actemra through insurance and does not qualify for PAP due to income, would like to know what you want to do. Normal [facility] Telephoneon 12-10-2023 Telephone [phone] Carlyle David 1945 F [facility] Provider Department Center 12/10/2023 JT CROOK I [facility] No family history on file [facility] Basophils Auto (Bld) [#/Vol] on 10-30-2023 Basophils (Bld) [#/Vol] 0.0 10 3/uL 0.0-0.1 [facility] Basophils/100 WBC Auto (Bld) on 10-30-2023 Basophils/100 WBC (Bld) 0.2 % 0.2-2.0 F [facility] Blood Mycobacterium tubercul osis tuberculin stimulated gamma interferon detectionon 10-30-2023 M. tuberculosis tuberculin stim IFN-g Ql (Bld) Comment . [facility] Comment on above: QuantiFERON-TB Gold Plus is [...] stim IFN-g Ql (Bld) 0.03 [IU]/mL . [facility] Blood mitogen stimulated hussain ma interferon measurement (units/volume)on 10-30-2023 Mitogen stimulated gamma interferon Qn (Bld) >10.00 [IU]/mL . [facility] Cholesterol in LDL Calc [Mas s/Vol]on 10-30-2023 Cholesterol in LDL [Mass/Vol] 161.0 mg/dL [facility] Comment on above: <100 mg/dl [id number] 0-129 mg/dl NEAR OR ABOVE [id number] mg/dl BORDERLINE [id number] mg/dl HIGH>190 mg/dl VERY HIGH Cholesterol in VLDL Calc [Ma ss/Vol]on 10-30-2023 Cholesterol in VLDL [Mass/Vol] 12.4 mg/dL [facility] Eosinophils/100 WBC Auto (Bl d)on 10-30-2023 Eosinophils/100 WBC (Bld) 0.4 % 0.9-7.0 [facility] Erythrocyte distribution wid th Auto (RBC) [Ratio]on 10-30-2023 Erythrocyte distribution width (RBC) [Ratio] 19.2 % 11.0-15.0 [facility] Estimated glomerular filtrat ion rate (GFR) non- Americanon 10-30-2023 GFR/1.73 sq M.predicted among non-blacks MDRD (S/P/Bld) [Vol rate/Area] mL/min/{1.73_m2} >=60 [facility] Globulin Calc (S) [Mass/Vol] on 10-30-2023 Globulin (S) [Mass/Vol] 3.4 g/dL F [facility] Hematocrit Auto (Bld) [Volum e fraction]on 10-30-2023 Hematocrit (Bld) [Volume fraction] 34.9 % 36.0-48.0 [facility] Hemoglobin [Mass/volume] in Bloodon 10-30-2023 Hemoglobin (Bld) [Mass/Vol] 10.8 g/dL 12.0-16.0 [facility] Hepatitis C virus IgG Ab [Pr esence] in Serum or Plasma by Immunoassayon 10-30-2023 HCV IgG IA Ql Non-Reactive Non Reactive [facility] Comment on above: HCV antibody alone d oes not differentiate betweenpreviously resolved infection and active infection.Equivocal and Reactive HCV antibody results should befollowed up with an HCV RNA test to support the diagnosisof active HCV infection. Laboratory - Chemistry and C hemistry - challengeon 10-30-2023 Albumin [Mass/Vol] 2.9 g/dL 3.4-5.0 [facility] ALP [Catalytic activity/Vol] 60 U/L 46-116 [facility] ALT [Catalytic activity/Vol] 24 U/L 14-59 [facility] AST [Catalytic activity/Vol] 10 U/L 15-37 [facility] Bilirubin [Mass/Vol] 0.4 mg/dL 0.2-1.0 [facility] Calcium [Mass/Vol] 8.3 mg/dL 8.5-10.1 [facility] Chloride [Moles/Vol] 102 mmol/L 98-107 [facility] Cholesterol [Mass/Vol] 308 mg/dL <=200 [facility] Cholesterol in HDL [Mass/Vol] 135 mg/dL 40-60 [facility] Comment on above: > or =60 mg/dl - LOW CARDIOVASCULAR RISK<40 mg/dl - HIGH CARDIOVASCULAR RISK CO2 [Moles/Vol] 30.3 mmol/L 21.0-32.0 [facility] Creatinine [Mass/Vol] 0.78 mg/dL 0.55-1.02 [facility] GFR/1.73 sq M.predicted MDRD (S/P/Bld) [Vol rate/Area] mL/min/{1.73_m2} >=60 [facility] Glucose [Mass/Vol] 71 mg/dL 74-106 [facility] Potassium [Moles/Vol] 4.1 mmol/L 3.5-5.1 [facility] Protein [Mass/Vol] 6.3 g/dL 6.4-8.2 [facility] Sodium [Moles/Vol] 140 mmol/L 136-145 [facility] Triglyceride [Mass/Vol] 62 mg/dL <=150 [facility] Urea nitrogen [Mass/Vol] 23.0 mg/dL 7.0-18.0 [facility] Urea nitrogen/Creatinine [Mass ratio] 29.5 mg/mg [facility] Laboratory - Hematology and Cell countson 10-30-2023 ESR (Bld) [Velocity] 21 mm/h <=30 [facility] Immature granulocytes/100 WBC (Bld) 1.8 % 0.0-0.5 [facility] Leukocytes [#/volume] correc tyrone for nucleated erythrocytes in Blood by Automated counon 10-30-2023 WBC corrected for nucl RBC Auto (Bld) [#/Vol] 11.4 10 3/uL 4.0-11.0 [facility] Lymphocytes Auto (Bld) [#/Vo l]on 10-30-2023 Lymphocytes (Bld) [#/Vol] 3.9 10 3/uL 1.2-3.8 [facility] Lymphocytes/100 WBC Auto (Bl d)on 10-30-2023 Lymphocytes/100 WBC (Bld) 34.2 % 20.5-60.0 [facility] MCH Auto (RBC) [Entitic mass ]on 10-30-2023 MCH (RBC) [Entitic mass] 29.4 pg 26.7-34.0 [facility] MCHC Auto (RBC) [Mass/Vol]on 10-30-2023 MCHC (RBC) [Mass/Vol] 30.9 g/dL 29.9-35.2 [facility] MCV Auto (RBC) [Entitic vol] on 10-30-2023 MCV (RBC) [Entitic vol] 95.1 fL 81.0-99.0 F [facility] Monocytes Auto (Bld) [#/Vol] on 10-30-2023 Monocytes (Bld) [#/Vol] 0.8 10 3/uL 0.3-0.8 [facility] Monocytes/100 WBC Auto (Bld) on 10-30-2023 Monocytes/100 WBC (Bld) 7.3 % 1.7-12.0 F [facility] Mycobacterium tuberculosis s timulated gamma interferon [Interpretation] in Blood Qualon 10-30-2023 M. tuberculosis stim IFN-g Ql (Bld) [Interp] Negative Negative [facility] Comment on above: No response to M tub erculosis antigens detected.Infection with M tuberculosis is unlikely, but high riskindividuals should be considered for additional testing(ATS/IDSA/CDC Clinical Practice Guidelines, 2017). Thereference range is an Antigen minus Nil result of <0.35IU/mL.Chemiluminescence immunoassay methodologyPerformed at: [facility] [address] [id number] Director: Bobby Mckeon PhD, Phone: [phone] Neutrophils Auto (Bld) [#/Vo l]on 10-30-2023 Neutrophils (Bld) [#/Vol] 6.4 10 3/uL 1.4-6.5 [facility] Neutrophils/100 WBC Auto (Bl d)on 10-30-2023 Neutrophils/100 WBC (Bld) 56.1 % 43.0-75.0 [facility] No Panel Informationon 10-29 Eosinophils # (Auto) 0.0 10 3/uL 0.0-0.7 [facility] Hepatitis B Core Total Antibody Negative Negative [facility] Comment on above: Performed at: [facility] [address] [id number] Director: Bobby Mckeon PhD, Phone: [phone] Immature Granulocyte # (Auto) 0.20 10 3/uL 0.00-0.03 [facility] Miscellaneous Test COMMENT . [facility] Comment on above: Test Ordered: [id number] Hep Be AgHep Be Ag Negative CB Reference Range: NegativePerformed at: [facility] [address] [id number] Director: Bobby Mckeon PhD, Phone: [phone] TB Test (QFT) Incubation See comment . [facility] Comment on above: Incubation performed . Reference Range: . Platelet mean volume Auto (B ld) [Entitic vol]on 10-30-2023 Platelet mean volume (Bld) [Entitic vol] 8.2 fL 9.5-13.5 [facility] Platelets Auto (Bld) [#/Vol] on 10-30-2023 Platelets (Bld) [#/Vol] 287 10 3/uL 150-450 [facility] RBC Auto (Bld) [#/Vol]on RBC (Bld) [#/Vol] 3.67 10 6/uL 4.20-5.40 [facility] Serum or plasma albumin/glob ulin mass ratioon 10-30-2023 Albumin/Globulin [Mass ratio] 0.9 {ratio} [facility] Serum or plasma anion gap de terminationon 10-30-2023 Anion gap [Moles/Vol] 11.8 mmol/L [facility] Serum or plasma total choles terol/high density lipoprotein (HDL) cholesterol mass artie 10-30-2023 Cholesterol.total/Choles terol in HDL [Mass ratio] 2.3 {ratio} [facility] Comment on above: 3.3 - 4.4 LOW RISK4. 4 - 7.1 AVERAGE RISK7.1 - 11.0 MODERATE RISK>11.0 HIGH RISK Whole blood measurement of M ycobacterium tuberculosis stimulated gamma interferon relon 10-30-2023 M. tuberculosis stim IFN-g by CD4+ CD8+ T-cells corrected for background Qn (Bld) 0.03 [IU]/mL . [facility] BASIC METABOLIC PANLon 09-26 Anion gap [Moles/Vol] 8 mmol/L Normal 5-15 [facility] Comment on above: Performed By: #### C BCA, CMP, 1987-12, FEPR, 6-4, 2284-8, 02910-9, 2131-9, 30810-8, 08889-5, 5130-0, 21401-9, 42872-0, 82174-7, 3357-1, 8092-9, 69122-0, 86757-5, 20593-0, 57686-4, 34480-7 #### [facility] ([id number]) [address], [address] [place] [address] Calcium [Mass/Vol] 7.9 mg/dL Low 8.5-10.5 [facility] Comment on above: Performed By: #### C BCA, CMP, 1987-12, FEPR, 2276-4, 2284-8, 85845-2, 2132-9, 55811-2, 65678-4, 5130-0, 35742-4, 61268-3, 80796-2, 3357-1, 8092-9, 68198-4, 40597-8, 44459-5, 97987-7, 82123-2 #### [facility] ([id number]) [address], [address] [place] [address] Chloride [Moles/Vol] 103 mmol/L Normal 98-109 [facility] Comment on above: Performed By: #### C BCA, CMP, 1987-12, FEPR, 2275-4, 2284-8, 31247-9, 2132-9, 27431-5, 12284-7, 5130-0, 10698-0, 24773-0, 00110-0, 3357-1, 8092-9, 07457-2, 90630-5, 96133-8, 23956-9, 66575-7 #### [facility] ([id number]) [address], [address] [place] [address] CO2 [Moles/Vol] 30 mmol/L Normal 22-32 [facility] Comment on above: Performed By: #### C BCA, CMP, 1987-12, FEPR, 2275-4, 2283-8, 34197-7, 2131-9, 32553-6, 74952-0, 5130-0, 90788-2, 07181-2, 19060-9, 3357-1, 8092-9, 16102-7, 98978-7, 44253-3, 27467-5, 37667-2 #### [facility] ([id number]) [address], [address] [place] [address] Creatinine [Mass/Vol] 0.65 mg/dL Normal 0.40-1.00 [facility] Comment on above: Result Comment: METH OD TRACEABLE TO IDMS STANDARD Performed By: #### C BCA, CMP, 1987-12, FEPR, 227-4, 2284-8, 04236-3, 213-9, 11410-8, 53177-1, 5130-0, 38778-7, 33755-0, 73890-7, 3357-1, 8092-9, 26690-2, 45993-5, 79144-7, 30609-2, 14853-5 #### [facility] ([id number]) [address], [address] [place] [address] eGFR (CKD-EPI) NON-RACE DEPENDENT >90 Normal >59 [facility] Comment on above: Result Comment: Reported eGFR is based on the CKD-EPI 2020 equation that does not use a race coefficient. Performed By: #### C SHARATH, CMP, 1987-12, FEPR, 2275-4, 2284-8, 65307-5, 2132-9, 26111-5, 03107-3, 5130-0, 82222-4, 49727-5, 25232-2, 3357-1, 8092-9, 18853-7, 25110-5, 34660-6, 74657-2, 89075-9 #### [facility] ([id number]) [address], [address] [place] [address] Glucose [Mass/Vol] 79 mg/dL Normal 65-99 [facility] Comment on above: Performed By: #### C SHARATH, CMP, 1987-12, FEPR, 2275-4, 2284-8, 82379-3, 2132-9, 21927-5, 87210-1, 5130-0, 37246-0, 64789-2, 64239-3, 3357-1, 8092-9, 23892-7, 47466-4, 68225-0, 14150-3, 59838-8 #### [facility] ([id number]) [address], [address] [place] [address] Potassium [Moles/Vol] 3.9 mmol/L Normal 3.5-5.0 [facility] Comment on above: Performed By: #### C SHARATH, CMP, 1987-12, FEPR, 2276-4, 2284-8, 60319-2, 2132-9, 15199-3, 96178-6, 5130-0, 85218-3, 05104-9, 67771-7, 3357-1, 8092-9, 00866-6, 74218-1, 83183-9, 70923-4, 23102-3 #### [facility] ([id number]) [address] [place] [address], [address] [place] [address] Sodium [Moles/Vol] 141 mmol/L Normal 134-146 [facility] Comment on above: Performed By: #### C BCA, CMP, 1987-12, FEPR, 2276-4, 2284-8, 23678-2, 2132-9, 54028-1, 80641-9, 5130-0, 18415-8, 43167-9, 09331-1, 3357-1, 8092-9, 38778-9, 27637-4, 99729-6, 85395-5, 69648-1 #### [facility] ([id number]) [address] [place] [address], [address] [place] [address] Urea nitrogen [Mass/Vol] 26 mg/dL Normal 5-27 [facility] Comment on above: Performed By: #### C BCA, CMP, 1987-12, FEPR, 2276-4, 2284-8, 24100-3, 2132-9, 85705-8, 79884-0, 5130-0, 04784-9, 55484-3, 45211-0, 3357-1, 8092-9, 04350-7, 41728-8, 19579-5, 19913-9, 90380-4 #### [facility] ([id number]) [address] [place] [address], [address] [place] [address] Basic Metabolic Panelon -0 -2023 Anion gap [Moles/Vol] 8 mmol/L 5 - 15 mmol/L [facility] Calcium [Mass/Vol] 7.9 mg/dL Low 8.5 - 10. 5 mg/dL [facility] Chloride [Moles/Vol] 103 mmol/L 98 - 10 9 mmol/L [facility] CO2 [Moles/Vol] 30 mmol/L 22 - 32 mmol/L [facility] Creatinine [Mass/Vol] 0.65 mg/dL 0.40 - 1.00 mg/dL [facility] Comment on above: METHOD TRACEABLE TO IDNV STANDARD eGFR (CKD-EPI)non-race dependent - PINF [facility] Comment on above: Reported eGFR is based on the CKD-EPI 2020 equation that does not use a race coefficient. Glucose [Mass/Vol] 79 mg/dL 65 - 99 mg/dL [facility] Interpretation and review of laboratory results Abnormal [facility] Potassium [Moles/Vol] 3.9 mmol/L 3.5 - 5.0 mmol/L [facility] Sodium [Moles/Vol] 141 mmol/L 134 - 146 mmol/L [facility] Urea nitrogen [Mass/Vol] 26 mg/dL 5 - 27 mg/dL [facility] CBC AND AUTO DIFFon 09-26-19 24 ABSOLUTE BASOPHIL 0.1 X10E9/L Normal 0.0-0.2 [facility] Comment on above: Performed By: #### C KELVIN EARLY, 1987-12, FEPR, 2276-4, 2284-8, 31144-4, 2131-9, 50176-2, 47814-1, 5130-0, 07040-2, 03080-1, 18654-1, 3357-1, 8092-9, 39317-5, 72127-4, 98310-2, 02215-7, 61922-8 #### [facility] ([id number]) [address] [place] [address] ABSOLUTE NEUTROPHIL 7.1 X10E9/L High 1.5-6.6 [facility] Comment on above: Performed By: #### C KELVIN EARLY, 1987-12, FEPR, 2276-4, 2284-8, 93749-8, 2132-9, 10717-3, 49487-7, 5130-0, 65951-2, 01001-5, 89450-8, 3357-1, 8092-9, 40668-9, 04485-9, 66219-0, 97118-8, 31739-8 #### [facility] ([id number]) [address], [address] [place] [address] Basophils/100 WBC (Bld) 0.8 % Normal [facility] Comment on above: Performed By: #### C BCA, CMP, 1987-12, FEPR, 2276-4, 2284-8, 37113-5, 2132-9, 36323-8, 88492-2, 5130-0, 74646-4, 18823-2, 84502-1, 3357-1, 8092-9, 63855-7, 01130-5, 87422-2, 07849-9, 50370-4 #### [facility] ([id number]) [address] [address], [address] [place] [address] Eosinophils (Bld) [#/Vol] 0.0 10*3/uL Normal 0.0-0.4 [facility] Comment on above: Performed By: #### C BCA, CMP, 1987-12, FEPR, 2275-4, 2283-8, 00163-6, 2132-9, 21690-5, 62346-4, 5130-0, 18808-9, 64710-1, 49712-4, 3357-1, 8092-9, 82613-2, 74482-2, 24445-8, 73139-1, 86474-6 #### [facility] ([id number]) [address] [address], [address] [place] [address] Eosinophils/100 WBC (Bld) 0.0 % Normal [facility] Comment on above: Performed By: #### C BCA, CMP, 1987-12, FEPR, 2276-4, 2284-8, 54255-3, 2132-9, 33231-4, 86370-0, 5130-0, 04742-3, 64689-1, 48666-2, 3357-1, 8092-9, 74555-3, 85580-7, 06139-6, 44782-0, 97735-8 #### [facility] ([id number]) [address] [facility] [address] [place] [address] Erythrocyte distribution width (RBC) [Ratio] 14.4 % Normal 11.5-15.0 [facility] Comment on above: Performed By: #### C SHARATH, CMP, 1987-12, FEPR, 2276-4, 2284-8, 70579-2, 2132-9, 33842-4, 60168-6, 5130-0, 84257-0, 99090-3, 73772-7, 3357-1, 8092-9, 23658-7, 47428-0, 86555-3, 77839-3, 06262-1 #### [facility] ([id number]) [facility] [address] [place] [address] Hematocrit (Bld) [Volume fraction] 24.8 % Low 35-47 [facility] Comment on above: Performed By: #### C SHARATH, CMP, 1987-12, FEPR, 2276-4, 2284-8, 85650-1, 2132-9, 11111-2, 43218-5, 5130-0, 79342-7, 17009-8, 43700-0, 3357-1, 8092-9, 90195-2, 79998-9, 88391-3, 95213-4, 01368-1 #### [facility] ([id number]) [address] [place] [address], [address] [place] [address] Hemoglobin (Bld) [Mass/Vol] 8.2 g/dL Low 11.7-15.5 [facility] Comment on above: Performed By: #### C SHARATH, CMP, 1987-12, FEPR, 2276-4, 2284-8, 83227-1, 2132-9, 27879-3, 36091-2, 5130-0, 49200-5, 61252-3, 24236-1, 3357-1, 8092-9, 33035-3, 14156-5, 79214-4, 75966-3, 97729-9 #### [facility] ([id number]) [address] [facility] [place] [address] Lymphocytes (Bld) [#/Vol] 2.4 10*3/uL Normal 1.0-3.5 [facility] Comment on above: Performed By: #### C SHARATH, [facility], 1987-12, FEPR, 2276-4, 2284-8, 90195-7, 2132-9, 07946-0, 85207-1, 5130-0, 50831-0, 04059-8, 35945-4, 3357-1, 8092-9, 80578-3, 95196-6, 66864-1, 49022-3, 04466-6 #### [facility] ([id number]) [facility], [address] [place] [address] Lymphocytes/100 WBC (Bld) 22.6 % Normal [facility] Hospital Comment on above: Performed By: #### C SHARATH, [facility], 1987-12, FEPR, 2276-4, 2284-8, 08987-9, 2132-9, 61010-8, 64989-3, 5130-0, 51435-6, 16444-9, 84053-5, 3357-1, 8092-9, 87336-3, 88632-0, 18525-5, 40933-8, 59216-8 #### [facility] ([id number]) [address], [address] [place] [address] MCH (RBC) [Entitic mass] 28.5 pg Normal 27-34 [facility] Comment on above: Performed By: #### C SHARATH, CMP, 1987-12, FEPR, 2276-4, 2284-8, 04634-4, 2132-9, 98848-3, 79877-3, 5130-0, 20117-0, 63579-0, 57414-2, 3357-1, 8092-9, 37510-8, 19781-4, 24561-6, 86938-9, 84335-6 #### [facility] ([id number]) [address], [address] [place] [address] MCHC (RBC) [Mass/Vol] 33.1 g/dL Normal 32-36 [facility] Comment on above: Performed By: #### C SHARATH, CMP, 1987-12, FEPR, 2276-4, 2284-8, 08524-4, 2132-9, 15521-1, 45662-7, 5130-0, 11728-8, 21466-9, 71444-6, 3357-1, 8092-9, 18743-6, 05059-5, 68266-0, 86974-0, 31686-8 #### [facility] ([id number]) [address], [address] [place] [address] MCV (RBC) [Entitic vol] 86 fL Normal 80-100 P [facility] Comment on above: Performed By: #### C SHARATH, CMP, 1987-12, FEPR, 2276-4, 2284-8, 11655-7, 2132-9, 83000-5, 30699-3, 5130-0, 86259-1, 66286-6, 63616-2, 3357-1, 8092-9, 78777-0, 24239-2, 63720-1, 53164-5, 33048-1 #### [facility] ([id number]) [address], [address] [place] [address] Monocytes (Bld) [#/Vol] 1.0 10*3/uL High 0-0.9 [facility] Comment on above: Performed By: #### C BCA, CMP, 1987-12, FEPR, 2276-4, 2284-8, 14743-3, 2132-9, 62791-6, 42011-0, 5130-0, 15188-9, 14743-4, 91873-5, 3357-1, 8092-9, 17706-3, 22805-4, 04896-3, 57041-8, 92627-5 #### [facility] ([id number]) [address], [address] [place] [address] Monocytes/100 WBC (Bld) 9.0 % Normal [facility] Comment on above: Performed By: #### C BCA, CMP, 1987-12, FEPR, 2276-4, 2284-8, 97905-4, 2132-9, 75282-1, 41786-1, 5130-0, 70737-5, 62200-7, 85986-3, 3357-1, 8092-9, 40854-1, 86466-0, 33066-5, 52616-9, 70038-1 #### [facility] ([id number]) [address], [address] [place] [address] Neutrophils/100 WBC (Bld) 67.6 % Normal [facility] Comment on above: Performed By: #### C BCA, CMP, 1987-12, FEPR, 2276-4, 2284-8, 00094-8, 2132-9, 43456-3, 11523-6, 5130-0, 58416-1, 25823-2, 13530-4, 3357-1, 8092-9, 36375-5, 20043-2, 07839-9, 36133-2, 03599-7 #### [facility] ([id number]) [address], [address] [place] [address] Platelet mean volume (Bld) [Entitic vol] 6.4 fL Low 7-12 [facility] Comment on above: Performed By: #### C BCA, CMP, 1987-12, FEPR, 2276-4, 2284-8, 63498-6, 2132-9, 95714-2, 07704-0, 5130-0, 30253-2, 96547-7, 78024-8, 3357-1, 8092-9, 15696-2, 95018-6, 79875-8, 30873-3, 66480-2 #### [facility] ([id number]) [address], [address] [place] [address] Platelets (Bld) [#/Vol] 686 10*3/uL High 150-450 [facility] Comment on above: Performed By: #### C BCA, CMP, 1987-12, FEPR, 2275-4, 2284-8, 21346-3, 2132-9, 95408-4, 47288-3, 5130-0, 34930-5, 16799-1, 93714-5, 3357-1, 8092-9, 78643-0, 89851-2, 82869-7, 04900-8, 99017-3 #### [facility] ([id number]) [address], [address] [place] [address] RBC COUNT 2.88 X10E12/L Low 3.80-5.20 [facility] Comment on above: Performed By: #### C BCA, CMP, 1987-12, FEPR, 2276-4, 2284-8, 81935-0, 2132-9, 25645-8, 26550-9, 5130-0, 20888-4, 84155-4, 43959-8, 3357-1, 8092-9, 31575-4, 92675-3, 05248-4, 70409-0, 49671-0 #### [facility] ([id number]) [address], [address] [place] [address] WBC (Bld) [#/Vol] 10.5 10*3/uL Normal 4.0-11.0 [facility] Comment on above: Performed By: #### C BCA, CMP, 1987-5, FEPR, 2276-4, 2284-8, 67660-6, 2132-9, 89030-1, 17984-8, 5130-0, 85311-4, 90700-2, 45381-8, 3357-1, 8092-9, 76076-4, 96946-2, 09734-8, 47416-8, 17454-0 #### [facility] ([id number]) [address], [address] [place] [address] CBC auto differentialon Basophils (Bld) [#/Vol] 0.1 10*3/uL [facility] Basophils/100 WBC (Bld) 0.8 % [facility] Eosinophils (Bld) [#/Vol] 0.0 10*3/uL [facility] Eosinophils/100 WBC (Bld) 0.0 % [facility] Erythrocyte distribution width (RBC) [Ratio] 14.4 % 11.5 - 15.0 % [facility] Hematocrit (Bld) [Volume fraction] 24.8 % Low 35 - 47 % [facility] Hemoglobin (Bld) [Mass/Vol] 8.2 g/dL Low 11.7 - 15.5 g/dL [facility] Interpretation and review of laboratory results Abnormal [facility] Lymphocytes (Bld) [#/Vol] 2.4 10*3/uL [facility] Lymphocytes/100 WBC (Bld) 22.6 % [facility] MCH (RBC) [Entitic mass] 28.5 pg 27 - [address] [facility] MCHC (RBC) [Mass/Vol] 33.1 g/dL 32 - 3 6 g/dL [facility] MCV (RBC) [Entitic vol] 86 fL 80 - 100 fL [facility] Monocytes (Bld) [#/Vol] 1.0 10*3/uL High [facility] Monocytes/100 WBC (Bld) 9.0 % P [facility] Neutrophils (Bld) [#/Vol] 7.1 10*3/uL High [facility] Neutrophils/100 WBC (Bld) 67.6 % [facility] Platelet mean volume (Bld) [Entitic vol] 6.4 fL Low 7 - 12 fL [facility] Platelets (Bld) [#/Vol] 686 10*3/uL High [facility] RBC (Bld) [#/Vol] 2.88 10*6/uL Low [facility] WBC corrected for nucl RBC Auto (Bld) [#/Vol] 10.5 [facility] Clinical Pathology Blood Sme ar Review Clinicalon 09-26-2023 Pathologist review Pathologist comment (Bld) [Interp] NOTE [facility] Comment on above: [facility] [address] [place] [address] Clinical Pathology Report Patient Name:JOSE DAVID:1945 (Age: 78)Gender:FTaken:4Reported:09/26/2023hysician(s):Olga Pan M.D. ([phone])Copy To: Rec. #:[id number]: #[id number] Final Pathologic Diagnosis Peripheral blood smear: Neutrophilic [...] correlation is recommended. Report Electronically Signed Out hna/09/26/2023Hayder Abdulwahid, M.D. Interpretation performed at [facility], [address] [place] [address], License number: [id number]. Clinical History R29.9. BLOOD SMEAR EVALUATION CBC (09/23/2023 0818): WBC = 12.1 X10E9/L; HGB = 9.1 g/dL; HCT = 27.8%; MCV = 85 fL; PLT = 924 X10E9/L OTHER LAB DATA: Noncontributory. BLOOD SMEAR: Leukocytes: Neutrophilic leukocytosis with cytotoxic changes and lymphocytopenia. Erythrocytes: Moderate normocytic normochromic anemia. Platelets: Thrombocytosis. Specimen(s) Received Blood Smear Review Fee Codes(s): 1; 30134 JAK2 V617F mutationon 2023 JAK2 gene p.[id number] [employer] Ql (Bld/Tiss) SEE COMMENTS 09/26/2023 10:21 AM [employer] [facility] Comment on above: NOTE Test Result Flag Unit RefValue ----- JAK2 V617F Mutation Detection, B JAK2 Result see interpretation JAK2 V617F Mutation Detection, B See Note Peripheral blood, JAK2 V617F mutation analysis: Negative for JAK2 V617F. A negative [id number] test result does not exclude the possibility [...] assay has been determined at 0.06% (see [facility] Interpretive Handbook for method details). This test was developed and its performance characteristics determined by [facility] in a manner consistent with CLIA requirements. This test has not been cleared or approved by the U.S. Food and Drug Administration. Test Performed by: [place] [address] Quality Process Engineer: Thierry Duran M.D. Ph.D.; CLIA# [id number] JAK2 gene p.[id number] [employer] Ql (Bld/Tiss)on 09-26-2023 [facility] Pathologist review Pathologi st comment (Bld) [Interp]on 09-26-2023 [facility] Surgical Pathologyon 024 [facility] [address] [place] [address] Surgical Pathology Consultation Patient Name:JOSE DAVID:1945 (Age: 78)Gender:FTaken:09/25/19 24Reported:4Phys ician(s):Kristel Reid MD ([phone])Copy To: Rec. #:[id number]: #[id number] Final Pathologic Diagnosis 1. Left temporal artery [...] Electronically Signed Out wak/09/26/2023José Luis Pederson MD Interpretation performed at [facility], [address], [place] [address], License number: [id number]. Clinical History Temporal arteries. Gross Description 1. Received in formalin labeled FRANKIE, left temporal artery biopsy is a segment of vasculature, 2 x 0.3 cm. The specimen is sectioned to reveal a pinpoint lumen. Are 3 segments of vasculature ranging from 0.5 cm to 1.2 cm in length by 0.2 cm in diameter. The specimen is submitted entirely in a single cassette. (1,ns,[id number], m1) . 2. Received in formalin labeled [place], right temporal artery biopsy are 3 segments of vasculature ranging from 0.5 cm to 1.2 cm in length by 0.2 cm in diameter. The segments are sectioned to reveal pinpoint lumens. The specimen are submitted entirely in cassettes A-B. (2,ns,[id number], m1) . /09/25/2023G Specimen(s) Received 1: Left temporal artery biopsy 2: Right temporal artery biopsy Fee Codes(s): 1; 59710, 43197 2; 89554, [address]132 [facility] [employer] ([employer]) BCR/ABL by PCR w/ Reflexon 0 09-25-2023 Narrative diagnostic report [employer] [place] (Bld/Tiss) [Interp] SEE COMMENTS 09/25/2023 04:24 PM [employer] Comment on above: NOTE Test Result Flag Unit RefValue ----- BCR/ABL1 Reflex, Qual/Quant Specimen Type EDTA WHOLE BLOOD BCR/ABL1 Reflex Result see interpretation Interpretation See Note Peripheral blood, BCR/ABL1 mRNA analysis, qualitative: Negative. No BCR/ABL1 mRNA transcripts were detected. Method summary: The presence or absence of BCR/ABL1 mRNA transcripts was evaluated using a qualitative, reverse trace evidence technician PCR-based assay. The assay detects nearly all published and theoretical BCR/ABL1 fusion forms including the common e13/e14-a2 (p210) and e1-a2 (p190) transcripts, as well as other rarer variants (e.g. e19-a2 (p230), e13/e14-a3, e1-a3, etc.). The limit of detection for this assay is 0.1%. Please contact the lab at [phone] with questions or if additional testing is required. See [facility] Test Catalog for additional method details. Signing Pathologist: Ammon Titus M.D. (Jane), Ph.D. ADDITIONAL INFORMATION This test was developed and its performance characteristics determined by [facility] in a manner consistent with CLIA requirements. This test has not been cleared or approved by the U.S. Food and Drug Administration. Test Performed by: [place] [address] Quality Process Engineer: Thierry Duran M.D. Ph.D.; CLIA# [id number] Narrative diagnostic report Martha Tidwell (Bld/Tiss) [Interp]on 09-25-2023 [facility] Surgical Pathologyon 024 Surgical Pathology Normal [facility] Comment on above: Result Comment: [facility] [address] [place] [address] Surgical Pathology Consultation ADDENDUM ME Patient Name:JOSE DAVID:1945 (Age: 78)Gender:FTaken:4Reported:09/26/2023hysician(s):Kristel Reid MD ([phone])Copy To: Rec. #:[id number]: #[id number] Final Pathologic Diagnosis 1. Left temporal artery [...] correlation is suggested. Report Electronically Signed Out [facility]/09/26/2023José Luis Pederson MD Addendum (PHS) Date Reported: 09/29/2023 In both parts of the specimen, and elastic special stain (with appropriate controls) demonstrates fragmentation and loss of the internal elastic lamina. Electronically Signed Out José Luis Pederson MD Interpretation performed at [facility], [address] [place] [address], License number: [id number]. Clinical History Temporal arteries. Gross Description 1. Received in formalin labeled [place], left temporal artery biopsy is a segment of vasculature, 2 x 0.3 cm. The specimen is sectioned to reveal a pinpoint lumen. Are 3 segments of vasculature ranging from 0.5 cm to 1.2 cm in length by 0.2 cm in diameter. The specimen is submitted entirely in a single cassette. (1,ns,[id number], m1) . 2. Received in formalin labeled [place], right temporal artery biopsy are 3 segments of vasculature ranging from 0.5 cm to 1.2 cm in length by 0.2 cm in diameter. The segments are sectioned to reveal pinpoint lumens. The specimen are submitted entirely in cassettes A-B. (2,ns,[id number], m1) /4RG Specimen(s) Received 1: Left temporal artery biopsy 2: Right temporal artery biopsy Fee Codes(s): 1; 02926, 45509 2; 56341, 41722 dRVVT/dRVVT.excess phospholi pid Coag (PPP) [Ratio]on 09-25-2023 dRVVT excess phospholipid Coag Ql (PPP) Negative [facility] ANCAon 09-24-2023 Neutrophil cytoplasmic Ab IF Ql (S) See Below [facility] Comment on above: NOTE TEST RESULT [...] See below Reviewed by Arun Tucker, Ph.D D([facility]) This test is used as an aid in diagnosis of patients with autoimmune vasculitidies. The final interpretation should be done in conjunction with ANCA test results and clinical correlation. Test Performed By: [facility] [address] [place] [address] Middleware Administrator: Meño Hernandez III, M.D. CLIA #[id number]^ BASIC METABOLIC PANLon 09-24 Anion gap [Moles/Vol] 10 mmol/L Normal 5-15 [facility] Comment on above: Performed By: #### C BCA, CMP, 1988-5, FEPR, 2276-4, 2284-8, 28203-8, 2132-9, 28641-6, 06216-6, 5130-0, 61981-1, 71335-9, 95209-7, 3357-1, 8092-9, 22392-1, 96280-6, 73686-4, 08926-6, 96855-0 #### [facility] ([id number]) [address] [place] [address] Calcium [Mass/Vol] 8.5 mg/dL Normal 8.5-10.5 [facility] Comment on above: Performed By: #### C BCA, CMP, 1987-12, FEPR, 2276-4, 2284-8, 23644-8, 2132-9, 27548-2, 25571-3, 5130-0, 37730-5, 74746-9, 18608-4, 3357-1, 8092-9, 54490-3, 77976-2, 32008-5, 70943-1, 30941-8 #### [facility] ([id number]) [address] [address] [place] [address] Chloride [Moles/Vol] 101 mmol/L Normal 98-109 [facility] Comment on above: Performed By: #### C BCA, CMP, 1987-12, FEPR, 227-4, 2284-8, 78580-5, 2132-9, 73573-0, 41335-8, 5130-0, 32675-2, 51944-5, 87965-2, 3357-1, 8092-9, 41979-4, 99177-0, 27775-5, 64563-3, 32547-1 #### [facility] ([id number]) [address], [address] [place] [address] CO2 [Moles/Vol] 29 mmol/L Normal 22-32 [facility] Comment on above: Performed By: #### C BCA, CMP, 1987-12, FEPR, 2276-4, 2284-8, 99419-8, 2132-9, 00802-9, 36198-5, 5130-0, 60732-5, 56342-0, 41123-8, 3357-1, 8092-9, 74916-2, 75020-0, 76344-3, 15803-8, 16508-6 #### [facility] ([id number]) [address], [address] [place] [address] Creatinine [Mass/Vol] 0.61 mg/dL Normal 0.40-1.00 [facility] Comment on above: Result Comment: METH OD TRACEABLE TO IDMS STANDARD Performed By: #### C BCA, CMP, 1987-12, FEPR, 2276-4, 2284-8, 66434-8, 2132-9, 19229-9, 79443-1, 5130-0, 95241-8, 67616-3, 14743-9, 3357-1, 8092-9, 48129-4, 15587-7, 08546-9, 19164-9, 06990-9 #### [facility] ([id number]) [address] [facility], [address] [place] [address] eGFR (CKD-EPI) NON-RACE DEPENDENT >90 Normal >59 [facility] Comment on above: Result Comment: Reported eGFR is based on the CKD-EPI 2020 equation that does not use a race coefficient. Performed By: #### C BCA, CMP, 1987-12, FEPR, 2275-4, 2284-8, 54188-3, 2132-9, 39975-2, 18894-0, 5130-0, 50853-4, 04100-6, 13779-7, 3357-1, 8092-9, 61720-0, 65792-6, 99086-9, 01848-8, 66335-1 #### [facility] ([id number]) [address] [facility], [address] [place] [address] Glucose [Mass/Vol] 98 mg/dL Normal 65-99 [facility] Comment on above: Performed By: #### C BCA, CMP, 1987-12, FEPR, 2276-4, 2284-8, 17370-9, 2132-9, 90669-7, 59464-4, 5130-0, 17478-8, 89645-4, 28318-9, 3357-1, 8092-9, 31908-5, 92695-7, 04245-1, 99724-7, 62353-4 #### [facility] ([id number]) [address], [address] [place] [address] Potassium [Moles/Vol] 3.5 mmol/L Normal 3.5-5.0 [facility] Comment on above: Performed By: #### C BCA, CMP, 1987-12, FEPR, 2276-4, 2284-8, 18902-0, 2132-9, 70061-9, 78663-1, 5130-0, 04385-1, 93198-5, 87627-0, 3357-1, 8092-9, 81647-8, 76322-3, 37014-1, 52393-4, 59325-3 #### [facility] ([id number]) [address], [address] [place] [address] Sodium [Moles/Vol] 140 mmol/L Normal 134-146 [facility] Comment on above: Performed By: #### C BCA, CMP, 1987-12, FEPR, 2275-4, 4-8, 71217-3, 2131-9, 97348-3, 55048-2, 5130-0, 73391-4, 27673-9, 61218-0, 3357-1, 8092-9, 53143-7, 36191-5, 33970-1, 10459-3, 54536-6 #### [facility] ([id number]) [address], [address] [place] [address] Urea nitrogen [Mass/Vol] 22 mg/dL Normal 5-27 [facility] Comment on above: Performed By: #### C BCA, CMP, 1987-12, FEPR, 2276-4, 2284-8, 94579-3, 2132-9, 50795-4, 99172-2, 5130-0, 50032-6, 42158-7, 53032-5, 3357-1, 8092-9, 16780-3, 59713-4, 56907-3, 00354-7, 59409-5 #### [facility] ([id number]) [address] [facility], [address] [place] [address] Basic Metabolic Panelon 08-27 Anion gap [Moles/Vol] 10 mmol/L 5 - 15 mmol/L [facility] Calcium [Mass/Vol] 8.5 mg/dL 8.5 - 10. 5 mg/dL [facility] Chloride [Moles/Vol] 101 mmol/L 98 - 10 9 mmol/L [facility] CO2 [Moles/Vol] 29 mmol/L 22 - 32 mmol/L [facility] Creatinine [Mass/Vol] 0.61 mg/dL 0.40 - 1.00 mg/dL [facility] Comment on above: METHOD TRACEABLE TO IDNV STANDARD eGFR (CKD-EPI)non-race dependent - PINF [facility] Comment on above: Reported eGFR is based on the CKD-EPI 2020 equation that does not use a race coefficient. Glucose [Mass/Vol] 98 mg/dL 65 - 99 mg/dL [facility] Potassium [Moles/Vol] 3.5 mmol/L 3.5 - 5.0 mmol/L [facility] Sodium [Moles/Vol] 140 mmol/L 134 - 146 mmol/L [facility] Urea nitrogen [Mass/Vol] 22 mg/dL 5 - 27 mg/dL [facility] CBC AND AUTO DIFFon 09-24-19 24 ABSOLUTE BASOPHIL 0.1 X10E9/L Normal 0.0-0.2 [facility] Comment on above: Performed By: #### C BCA, CMP, 1988-5, FEPR, 2276-4, 2284-8, 22572-2, 2132-9, 41770-9, 20098-3, 5130-0, 72023-7, 00060-6, 27047-4, 3357-1, 8092-9, 77440-9, 54531-3, 54639-3, 63039-7, 45468-9 #### [facility] ([id number]) [address], [address] [place] [address] ABSOLUTE NEUTROPHIL 16.3 X10E9/L High 1.5-6.6 [facility] Comment on above: Performed By: #### C BCA, CMP, 1987-12, FEPR, 2276-4, 2284-8, 25102-7, 2132-9, 35561-8, 49443-5, 5130-0, 89977-6, 08227-2, 10477-2, 3357-1, 8092-9, 57000-6, 11895-4, 18666-4, 36186-8, 17627-4 #### [facility] ([id number]) [address] [facility], [address] [place] [address] Basophils/100 WBC (Bld) 0.5 % Normal [facility] Comment on above: Performed By: #### C BCA, CMP, 1987-12, FEPR, 2275-4, 2284-8, 44893-7, 2132-9, 79904-0, 51483-0, 5130-0, 91298-8, 88646-9, 24214-2, 3357-1, 8092-9, 85760-0, 81103-1, 52412-8, 30550-3, 97850-0 #### [facility] ([id number]) [address], [address] [place] [address] Eosinophils (Bld) [#/Vol] 0.0 10*3/uL Normal 0.0-0.4 [facility] Comment on above: Performed By: #### C BCA, CMP, 1987-12, FEPR, 2276-4, 2284-8, 04792-8, 2132-9, 72447-2, 56489-0, 5130-0, 57029-4, 27806-0, 67737-0, 3357-1, 8092-9, 63971-1, 31123-8, 38932-0, 43660-0, 58596-5 #### [facility] ([id number]) [address], [address] [place] [address] Eosinophils/100 WBC (Bld) 0.0 % Normal [facility] Comment on above: Performed By: #### C BCA, CMP, 1987-12, FEPR, 227-4, 2284-8, 26190-7, 2132-9, 51047-6, 66475-6, 5130-0, 92362-9, 85849-4, 09434-0, 3357-1, 8092-9, 17244-3, 66698-2, 18842-4, 64202-6, 58266-4 #### [facility] ([id number]) [address], [address] [place] [address] Erythrocyte distribution width (RBC) [Ratio] 14.8 % Normal 11.5-15.0 [facility] Comment on above: Performed By: #### C BCA, CMP, 1987-12, FEPR, 2275-4, 2284-8, 59138-2, 2132-9, 42043-6, 06957-0, 5130-0, 13608-3, 52762-6, 23420-0, 3357-1, 8092-9, 91727-2, 81029-7, 45736-1, 14236-6, 55803-6 #### [facility] ([id number]) [address], [address] [place] [address] Hematocrit (Bld) [Volume fraction] 25.6 % Low 35-47 [facility] Comment on above: Performed By: #### C BCA, CMP, 1987-12, FEPR, 2276-4, 2284-8, 73021-6, 2132-9, 62040-2, 09956-4, 5130-0, 22513-2, 50135-6, 09654-9, 3357-1, 8092-9, 99516-9, 61940-7, 43887-0, 45223-2, 86026-6 #### [facility] ([id number]) [address], [address] [place] [address] Hemoglobin (Bld) [Mass/Vol] 8.3 g/dL Low 11.7-15.5 [facility] Comment on above: Performed By: #### C KELVIN EARLY, 1987-12, FEPR, 2275-4, 2283-8, 14475-7, 2132-9, 75645-5, 97989-1, 5130-0, 94656-7, 66646-4, 93220-8, 3357-1, 8092-9, 24757-6, 00348-6, 81511-6, 86030-6, 25202-5 #### [facility] ([id number]) [address], [address] [place] [address] Lymphocytes (Bld) [#/Vol] 1.6 10*3/uL Normal 1.0-3.5 [facility] Comment on above: Performed By: #### C KELVIN EARLY, 1987-12, FEPR, 2275-, 2283-8, 35677-1, 2131-9, 01970-8, 98167-3, 5130-0, 03454-0, 86806-4, 32153-1, 3357-1, 8092-9, 04632-7, 17367-7, 34456-8, 87951-2, 67924-5 #### [facility] ([id number]) [address], [address] [place] [address] Lymphocytes/100 WBC (Bld) 8.3 % Normal [facility] Comment on above: Performed By: #### C KELVIN EARLY, 1987-12, FEPR, 2275-4, 4-8, 10568-5, 2132-9, 03455-4, 32041-7, 5130-0, 11567-6, 52496-9, 05045-9, 3357-1, 8092-9, 73684-5, 10269-6, 91293-5, 13488-7, 76399-5 #### [facility] ([id number]) [address], [address] [place] [address] MCH (RBC) [Entitic mass] 27.8 pg Normal 27-34 [facility] Comment on above: Performed By: #### C BCA, CMP, 1987-12, FEPR, 2276-4, 2284-8, 62058-5, 2132-9, 91110-0, 60162-1, 5130-0, 32410-2, 56966-4, 84214-1, 3357-1, 8092-9, 34217-7, 99750-2, 45326-9, 35236-8, 95090-4 #### [facility] ([id number]) [address], [address] [place] [address] MCHC (RBC) [Mass/Vol] 32.5 g/dL Normal 32-36 [facility] Comment on above: Performed By: #### C BCA, CMP, 1987-12, FEPR, 6-4, 2284-8, 03229-7, 2132-9, 78761-6, 74225-7, 5130-0, 31391-3, 61496-4, 58037-5, 3357-1, 8092-9, 01032-3, 46142-1, 53356-0, 65098-1, 73803-0 #### [facility] ([id number]) [address], [address] [place] [address] MCV (RBC) [Entitic vol] 85 fL Normal 80-100 [facility] Comment on above: Performed By: #### C BCA, CMP, 1987-12, FEPR, 2276-4, 2284-8, 27366-8, 2132-9, 36262-4, 55592-9, 5130-0, 04055-5, 48804-8, 36641-8, 3357-1, 8092-9, 49608-3, 92203-7, 21409-4, 27169-2, 98347-2 #### [facility] ([id number]) [address], [address] [place] [address] Monocytes (Bld) [#/Vol] 1.0 10*3/uL High 0-0.9 [facility] Comment on above: Performed By: #### C BCA, CMP, 1987-12, FEPR, 2276-4, 2284-8, 85138-9, 2132-9, 39892-4, 64863-1, 5130-0, 79735-5, 61807-5, 25946-9, 3357-1, 8092-9, 41738-8, 10053-3, 91353-7, 58685-8, 45707-5 #### [facility] ([id number]) [address], [address] [place] [address] Monocytes/100 WBC (Bld) 5.0 % Normal [facility] Comment on above: Performed By: #### C BCA, CMP, 1987-12, FEPR, 2276-4, 2284-8, 55867-2, 2132-9, 91568-4, 44304-2, 5130-0, 13521-5, 33731-4, 21841-0, 3357-1, 8092-9, 66818-7, 33054-3, 33006-4, 44062-0, 01191-8 #### [facility] ([id number]) [address], [address] [place] [address] Neutrophils/100 WBC (Bld) 86.2 % Normal [facility] Comment on above: Performed By: #### C BCA, CMP, 1987-12, FEPR, 2276-4, 2284-8, 04331-5, 2132-9, 90735-3, 48961-3, 5130-0, 64488-5, 83734-9, 58872-2, 3357-1, 8092-9, 37310-7, 37988-4, 63743-3, 24636-1, 96486-4 #### [facility] ([id number]) [address], [address] [place] [address] Platelet mean volume (Bld) [Entitic vol] 6.5 fL Low 7-12 [facility] Comment on above: Performed By: #### C SHARATH, CMP, 1987-12, FEPR, 2276-4, 2284-8, 72328-8, 2132-9, 20256-8, 59155-8, 5130-0, 12856-2, 37675-4, 35326-2, 3357-1, 8092-9, 45655-7, 69844-0, 46978-3, 66563-5, 65819-9 #### [facility] ([id number]) [address], [address] [place] [address] Platelets (Bld) [#/Vol] 902 10*3/uL High 150-450 [facility] Comment on above: Performed By: #### C SHARATH, CMP, 1987-12, FEPR, 2276-4, 2284-8, 22419-7, 2132-9, 39197-2, 72174-7, 5130-0, 27349-9, 61154-6, 46930-1, 3357-1, 8092-9, 15437-0, 62013-4, 57516-2, 04681-9, 23804-8 #### [facility] ([id number]) [address], [address] [place] [address] RBC COUNT 3.00 X10E12/L Low 3.80-5.20 [facility] Comment on above: Performed By: #### C BCA, CMP, 1987-12, FEPR, 2276-4, 2284-8, 81976-3, 2132-9, 92068-7, 98148-8, 5130-0, 17298-8, 88671-5, 10023-5, 3357-1, 8092-9, 46454-8, 75074-4, 46829-9, 07016-0, 16651-1 #### [facility] ([id number]) [address] [place] [address], [address] [place] [address] WBC (Bld) [#/Vol] 18.9 10*3/uL High 4.0-11.0 [facility] Comment on above: Performed By: #### C BCA, CMP, 1987-, FEPR, 6-4, 228-8, 81673-6, 2132-9, 84430-5, 48872-4, 5130-0, 22223-6, 11786-4, 59498-3, 3357-1, 8092-9, 37724-0, 44451-0, 46702-1, 81359-3, 29828-5 #### [facility] ([id number]) [address] [place] [address], [address] [place] [address] CBC auto differentialon 08-27 Basophils (Bld) [#/Vol] 0.1 10*3/uL [facility] Basophils/100 WBC (Bld) 0.5 % [facility] Eosinophils (Bld) [#/Vol] 0.0 10*3/uL [...] [facility] Lymphocytes/100 WBC (Bld) 8.3 % [facility] MCH (RBC) [Entitic mass] 27.8 pg 27 - 34 pg [facility] MCHC (RBC) [Mass/Vol] 32.5 g/dL 32 - 3 6 g/dL [facility] MCV (RBC) [Entitic vol] 85 fL 80 - 100 fL [facility] Monocytes (Bld) [#/Vol] 1.0 10*3/uL High [facility] Monocytes/100 WBC (Bld) 5.0 % [facility] Neutrophils (Bld) [#/Vol] 16.3 10*3/uL High [facility] Neutrophils/100 WBC (Bld) 86.2 % [facility] Platelet mean volume (Bld) [Entitic vol] 6.5 fL Low 7 - 12 fL [facility] Platelets (Bld) [#/Vol] 902 10*3/uL High [facility] RBC (Bld) [#/Vol] 3.00 10*6/uL Low [facility] WBC corrected for nucl RBC Auto (Bld) [#/Vol] 18.9 High [facility] Cardiac echo study Procedure Ordered By: Nacho Grant on 09-24-2023 Aortic root 2.80 cm [facility] Work Phone: AV mean gradient 6.[address] [facility] Work Phone: AV peak gradient 8.[address] [facility] Work Phone: AV peak kym 147.00 cm/s [facility] Work Phone: AV valve area 1.95 cm2 [facility] Work Phone: AV Velocity Ratio 0.[address] [facility] Work Phone: AV VTI 33.60 cm [facility] Work Phone: [phone] E wave deceleration time 187.00 msec [facility] Work Phone: E/A ratio 0.72 [facility] Work Phone: Echo EF Estimated 63 % [employer] Work Phone: [phone] EF 63 % [employer] Work Phone: [phone] Energy loss index 1.88 [employer] Work Phone: [phone] FS 33 % 28 - 44 % [employer] Work Phone: [phone] Interventricular Septum Diastolic Thickness by 2D 10 cm [employer] Work Phone: [phone] IVS 1.00 cm 0.6 - 1.1 cm [employer] Work Phone: [phone] LA size 3.60 cm [employer] Work Phone: [phone] LA volume 48.00 cm3 [employer] Work Phone: [phone] LA Volume Index 31.8 mL/m2 [employer] Work Phone: [phone] Left Ventricle Mass 122.803025573588695 g [employer] Work Phone: [phone] LV Diastolic Volume 71.20 mL [employer] Work Phone: LV ESV A2C 56.30 mL [employer] Work Phone: [phone] LV ESV A4C 33.20 mL [employer] Work Phone: [phone] LV RWT 2D 51.28 [employer] Work Phone: [phone] LV Systolic Volume 26.00 mL [employer] Work Phone: [phone] LVIDd 3.90 cm 3.78 - 5.25 cm [employer] Work Phone: LVIDs 2.60 cm 2.25 - 3.40 cm [employer] Work Phone: [phone] LVOT diameter 1.80 cm [employer] Work Phone: [phone] LVOT peak kym 1.37 m/s [employer] Work Phone: [phone] LVOT peak VTI 25.80 cm [employer] Work Phone: [phone] LVOT stroke volume 65.65 ml [employer] Work Phone: MV Peak A Kym 99.40 cm/s [facility] Work Phone: MV Peak E Kym 71.30 cm/s [facility] Work Phone: [phone] MV pressure 1/2 time 55.00 ms [facility] Work Phone: MV TDI E' (medial) 6.85 cm/s [facility] Work Phone: [phone] MV valve area p 1/2 method 4.00 cm2 [employer] Work Phone: PV peak gradient 4.16 mmHg [employer] Work Phone: PW 1.00 cm 0.6 - 1.1 cm [employer] Work Phone: RV diastolic dimension (basal) 29.0 mm [employer] Work Phone: TAPSE 1.88 cm [employer] Work Phone: TDI 9.68 cm/s [employer] Work Phone: Valve area - Index 1.3 [employer] Work Phone: ZLVIDD -1.32 [employer] Work Phone: ZLVIDS -0.48 [employer] Work Phone: [employer] Work Phone: Cardiac echo study Procedure on [...] for comparison. [facility] Radiology Study observation (narrative) [facility] MR BRAIN W WO CONTon 09-24- 024 MR BRAIN W WO CONT MR [...] of the major arterial structures in the [place]. The paranasal sinuses are clear. [...] Jewell MD on 09/24/2023 4:24 AM Normal [facility] MR Brain WO and W [...] of the major arterial structures in the [place]. The paranasal sinuses are clear. [...] Gilbert Jewell MD on 09/24/2023 4:24 AM [facility] Gilbert Jewell M D - 09/24/2023 MR [...] of the major arterial structures in the [place]. The paranasal sinuses are clear. [...] Gilbert Jewell MD on 09/24/2023 4:24 AM [facility] Radiology Study observation (narrative) [facility] MR ORBIT W WO CONTon 024 [...] of the major arterial structures in the [place]. The paranasal sinuses are clear. [...] Gilbert Jewell MD on 09/24/2023 4:25 AM [facility] MR Orbit WO and W contrast [...] of the major arterial structures in the [place]. The paranasal sinuses are clear. [...] of the major arterial structures in the [place]. The paranasal sinuses are clear. [...] Gilbert Jewell MD on 09/24/2023 4:[address] [facility] (narrative) [facility] MR Orbit WO and W contrast I VOrdered By: Gilbert Jewell on 09-24-2023 [facility] Work Phone: Neutrophil cytoplasmic Ab IF Ql (S)on 09-24-2023 [facility] Reticulocyteson 09-24-2023 Reticulocytes/100 RBC (Bld) 2.3 % High 0.4 - 2.2 % [facility] Reticulocytes/100 RBC (Bld)o n 09-24-2023 Interpretation and review of laboratory results Abnormal [facility] RETICULOCYTE COUNT 2.3 % High 0.4-2.2 [facility] Comment on above: Performed By: #### C SHARATH, CMP, 1987-12, FEPR, 2276-4, 2284-8, 67091-4, 2132-9, 69858-1, 59337-6, 5130-0, 01965-5, 47246-6, 11803-9, 3357-1, 8092-9, 38720-8, 68836-9, 79709-9, 50509-0, 37980-5 #### [facility] ([id number]) [address] [place] [address] ACUTE HEPATITIS PANELon 08-27 ANTI HCV W/PCR REFLX Non-Reactive Normal NRCT Pr [facility] Comment on above: Result Comment: If recent infection suspected, recommend repeat testing (>2 months). Vfapeu-go-kwnizi ratio is <0.80. Performed By: #### C SHARATH, KELVIN, 1987-12, FEPR, 227-4, 2284-8, 04794-9, 2132-9, 06034-5, 49834-4, 5130-0, 21841-5, 86520-4, 45159-3, 3357-1, 8092-9, 68882-4, 64130-5, 62730-9, 74490-2, 23247-7 #### [facility] ([id number]) [address], [address] [place] [address] HEPATITIS A IGM Non-Reactive Normal NRCT [facility] Comment on above: Performed By: #### C SHARATH, CMP, 1987-12, FEPR, 2276-4, 2284-8, 24307-0, 2132-9, 56242-8, 55753-7, 5130-0, 74524-4, 68616-0, 35100-8, 3357-1, 8092-9, 42725-1, 24899-7, 26647-8, 94836-7, 85772-3 #### [facility] ([id number]) [address] [place] [address], [address] [place] [address] HEPATITIS B CORE IGM Negative Normal NEG [facility] Comment on above: Performed By: #### C BCA, CMP, 1987-12, FEPR, 2276-4, 2284-8, 19338-7, 2132-9, 35710-2, 04773-0, 5130-0, 37607-2, 50410-1, 40668-6, 3357-1, 8092-9, 44430-1, 58460-7, 63257-5, 37141-6, 41454-8 #### [facility] ([id number]) [address] [place] [address], [address] [place] [address] HEPATITIS B SURF AG Negative Normal NEG [facility] Comment on above: Performed By: #### C BCA, CMP, 1987-12, FEPR, 2276-4, 2284-8, 01365-5, 2132-9, 64722-1, 64429-5, 5130-0, 27789-4, 30269-4, 00521-4, 3357-1, 8092-9, 42493-0, 27100-2, 86529-9, 01882-1, 13587-0 #### [facility] ([id number]) [address] [place] [address], [address] [place] [address] SILVIA Screen w/ Reflexon 09-23 Nuclear Ab IA Ql (S) Positive Abnormal Negativ e^Ne [facility] Comment on above: Testing performed using multiplex flow immunoassay. Eleven different antigens associated with systemic autoimmune diseases (dsDNA,Sm,Sm/[employer] SAFE,Chromatin, SSA,SSB,Tiki-1,Scl70,Ribo P,Centromere B) are included in this screening test. ANTI CARDIOLIPIN AB IGG IGA IGMon 09-23-2023 MIRIAM IgA <2.0 Normal 0-19.9 [facility] Comment on above: Performed By: #### C SHARATH, CMP, 1987-12, FEPR, 2276-4, 2284-8, 19966-2, 2132-9, 89516-5, 67910-9, 5130-0, 46089-2, 09870-5, 88645-8, 3357-1, 8092-9, 26576-6, 39266-8, 63671-7, 41123-5, 44979-3 #### [facility] ([id number]) [address] [place] [address], [address] [place] [address] MIRIAM IgG <1.6 Normal 0-19.9 [facility] Comment on above: Performed By: #### C SHARATH, CMP, 1987-12, FEPR, 227-4, 2284-8, 97213-2, 2132-9, 53092-2, 35797-4, 5130-0, 90378-0, 86447-5, 69519-9, 3357-1, 8092-9, 74280-0, 11884-7, 25147-9, 08858-7, 08798-3 #### [facility] ([id number]) [address] [place] [address], [address] [place] [address] MIRIAM IgM <1.5 Normal 0-19.9 [facility] Comment on above: Performed By: #### C SHARATH, CMP, 1987-12, FEPR, 2276-4, 2284-8, 80167-7, 2132-9, 56446-2, 21947-4, 5130-0, 03689-1, 70655-9, 86643-0, 3357-1, 8092-9, 53601-9, 93815-3, 49977-7, 27595-7, 10232-7 #### [facility] ([id number]) [address], [address] [place] [address] Anileridine Ql (U)on 024 JO1 ANTIBODY <0.2 Normal <1.0 [facility] Comment on above: Performed By: #### C BCA, CMP, 1988-5, FEPR, 2276-4, 2284-8, 28098-4, 2131-9, 60317-9, 57200-2, 5130-0, 16014-4, 20123-6, 56364-0, 3357-1, 8092-9, 62575-2, 89563-0, 42763-2, 07321-1, 65860-9 #### [facility] ([id number]) [address], [address] [place] [address] Anti cardiolipin AB IgG IgA IgMon 09-23-2023 Cardiolipin IgA IA Qn (S) [facility] Cardiolipin IgG IA Qn (S) [facility] Cardiolipin IgM IA Qn (S) [facility] Anti-Chromatin IGGon 024 Chromatin Ab Ql 0.4 [facility] Comment on above: CLIA ID [id number] Anti-DNA antibody, double-st randedon 09-23-2023 DNA double strand Ab Qn (S) 1 [IU]/mL [facility] Comment on above: Interpretation-------- <5 Negative 5-9 Indeterminate >9 Positive CLIA ID [id number] Anti-Ribosomal P AB IGGon Ribosomal P IgG Qn (S) [facility] Comment on above: CLIA ID [id number] Anti-Mejia AB IGGon 09-23-19 24 Mejia extractable nuclear IgG Qn (S) [facility] Comment on above: CLIA ID [id number] BETA-2 GP1 AB PANELon 2023 BETA-2 GP1 IgA <2.0 Normal 0.0-19.9 [facility] Comment on above: Performed By: #### C BCA, CMP, 1987-12, FEPR, 2276-4, 2284-8, 92705-3, 2132-9, 52836-4, 17224-8, 5130-0, 96180-5, 08658-2, 24879-0, 3357-1, 8092-9, 42816-5, 96050-7, 70571-4, 25102-8, 78442-8 #### [facility] ([id number]) [address] [place] [address], [address] [place] [address] BETA-2 GP1 IgG <1.4 Normal 0.0-19.9 [facility] Comment on above: Performed By: #### C BCA, CMP, 1987-12, FEPR, 2276-4, 2284-8, 89656-8, 2132-9, 35356-4, 51023-7, 5130-0, 67177-5, 01814-0, 38622-7, 3357-1, 8092-9, 50308-9, 87602-4, 77273-8, 49291-8, 77831-8 #### [facility] ([id number]) [address] [place] [address], [address] [place] [address] BETA-2 GP1 IgM 4.1 u/mL Normal 0.0-19.9 [facility] Comment on above: Performed By: #### C BCA, CMP, 1987-12, FEPR, 2276-4, 2284-8, 25497-2, 2132-9, 51047-6, 62007-7, 5130-0, 10010-9, 56547-9, 36815-7, 3357-1, 8092-9, 61633-1, 15182-0, 77776-8, 35144-9, 93700-2 #### [facility] ([id number]) [address] [place] [address], [address] [place] [address] Beta-2 glycoprotein antibodi eson 09-23-2023 Beta 2 glycoprotein 1 IgA IA Qn u/mL 0.0 - 19.9 u/mL [facility] Beta 2 glycoprotein 1 IgG IA Qn u/mL 0.0 - 19.9 u/mL [facility] Beta 2 glycoprotein 1 IgM IA Qn 4.1 u/mL 0.0 - 19.9 u/mL [facility] C-reactive proteinon 024 CRP [Mass/Vol] 13.3 mg/dL High 0.000 - 0.744 mg/dL [facility] CBC AND AUTO DIFFon 09-23-19 24 ABSOLUTE BASOPHIL 0.0 X10E9/L Normal 0.0-0.2 [facility] Comment on above: Performed By: #### C SHARATH, CMP, 1987-12, FEPR, 2276-4, 2284-8, 58660-4, 2132-9, 64408-6, 68732-4, 5130-0, 54178-1, 73725-9, 59247-6, 3357-1, 8092-9, 11318-9, 10242-9, 45439-8, 21439-0, 71449-3 #### [facility] ([id number]) [address] [place] [address], [address] [place] [address] ABSOLUTE NEUTROPHIL 11.5 X10E9/L High 1.5-6.6 [facility] Comment on above: Performed By: #### C BCA, CMP, 1987-12, FEPR, 2276-4, 2284-8, 93318-7, 2132-9, 80691-0, 60038-1, 5130-0, 23920-4, 05187-1, 63491-5, 3357-1, 8092-9, 01797-0, 43987-4, 60468-9, 70114-3, 62756-6 #### [facility] ([id number]) [address], [address] [place] [address] Basophils/100 WBC (Bld) 0.2 % Normal [facility] Comment on above: Performed By: #### C BCA, CMP, 1987-12, FEPR, 227-4, 2284-8, 83752-0, 2132-9, 32600-3, 47232-5, 5130-0, 06904-5, 68264-0, 40748-5, 3357-1, 8092-9, 13163-4, 62228-6, 17610-9, 34411-5, 37218-5 #### [facility] ([id number]) [address], [address] [place] [address] Eosinophils (Bld) [#/Vol] 0.0 10*3/uL Normal 0.0-0.4 [facility] Comment on above: Performed By: #### C BCA, CMP, 1987-12, FEPR, 2275-4, 2284-8, 57795-0, 2132-9, 58655-4, 64444-8, 5130-0, 84587-6, 70825-9, 65117-4, 3357-1, 8092-9, 24183-0, 31792-1, 53822-7, 77206-7, 11560-2 #### [facility] ([id number]) [address], [address] [place] [address] Eosinophils/100 WBC (Bld) 0.0 % Normal [facility] Comment on above: Performed By: #### C BCA, CMP, 1987-12, FEPR, 227-4, 2284-8, 49814-0, 2132-9, 72544-2, 55193-6, 5130-0, 41999-9, 01301-5, 23684-8, 3357-1, 8092-9, 32154-0, 12687-9, 40774-4, 63447-5, 02887-2 #### [facility] ([id number]) [address], [address] [place] [address] Erythrocyte distribution width (RBC) [Ratio] 14.4 % Normal 11.5-15.0 [facility] Comment on above: Performed By: #### C SHARATH, KELVIN, 1987-12, FEPR, 227-4, 2284-8, 51356-8, 2131-9, 38299-4, 55115-5, 5130-0, 58971-2, 04307-2, 86153-3, 3357-1, 8092-9, 72405-7, 81002-6, 56251-7, 94662-8, 04506-2 #### [facility] ([id number]) [address], [address] [place] [address] Hematocrit (Bld) [Volume fraction] 27.8 % Low 35-47 [facility] Comment on above: Performed By: #### C SHARATH, KELVIN, 1987-12, FEPR, 2275-4, 2284-8, 44975-0, 2131-9, 83139-4, 86431-8, 5130-0, 95542-2, 26199-4, 40887-3, 3357-1, 8092-9, 17729-1, 50967-8, 22286-7, 14823-3, 52093-1 #### [facility] ([id number]) [address], [address] [place] [address] Hemoglobin (Bld) [Mass/Vol] 9.1 g/dL Low 11.7-15.5 [facility] Comment on above: Performed By: #### C SHARATH, CMP, 1987-12, FEPR, 2276-4, 2284-8, 38859-6, 2132-9, 59508-4, 18793-1, 5130-0, 01455-8, 87068-3, 33370-6, 3357-1, 8092-9, 18149-4, 77773-8, 26306-7, 88742-4, 52598-5 #### [facility] ([id number]) [address], [address] [place] [address] Lymphocytes (Bld) [#/Vol] 0.4 10*3/uL Low 1.0-3.5 [facility] Comment on above: Performed By: #### C SHARATH, CMP, 1987-12, FEPR, 2276-4, 2284-8, 33672-6, 2132-9, 43640-7, 45001-3, 5130-0, 29743-9, 73579-5, 34948-7, 3357-1, 8092-9, 78042-4, 61364-7, 94582-7, 03472-9, 66474-3 #### [facility] ([id number]) [address], [address] [place] [address] Lymphocytes/100 WBC (Bld) 3.3 % Normal [facility] Comment on above: Performed By: #### C SHARATH, CMP, 1987-12, FEPR, 2276-4, 2284-8, 45074-0, 2132-9, 16752-4, 16985-4, 5130-0, 97287-3, 24208-2, 99212-2, 3357-1, 8092-9, 03476-7, 00747-5, 43516-3, 58582-2, 45673-8 #### [facility] ([id number]) [address], [address] [place] [address] MCH (RBC) [Entitic mass] 27.8 pg Normal 27-34 [facility] Comment on above: Performed By: #### C SHARATH, CMP, 1987-12, FEPR, 2276-4, 2284-8, 45049-3, 2132-9, 71722-3, 63793-2, 5130-0, 40347-0, 85640-0, 97397-6, 3357-1, 8092-9, 75687-5, 93966-0, 55777-7, 14345-9, 17229-2 #### [facility] ([id number]) [address], [address] [place] [address] MCHC (RBC) [Mass/Vol] 32.7 g/dL Normal 32-36 [facility] Comment on above: Performed By: #### C BCA, CMP, 1987-12, FEPR, 2276-4, 2284-8, 14557-1, 2132-9, 77257-5, 55744-7, 5130-0, 68436-0, 80866-3, 04625-8, 3357-1, 8092-9, 76167-5, 29610-8, 73899-5, 41597-8, 15504-9 #### [facility] ([id number]) [address], [address] [place] [address] MCV (RBC) [Entitic vol] 85 fL Normal 80-100 [facility] Comment on above: Performed By: #### C BCA, CMP, 1987-12, FEPR, 2276-4, 2284-8, 01441-7, 2132-9, 22440-6, 31269-5, 5130-0, 69132-5, 68115-2, 12794-2, 3357-1, 8092-9, 28337-5, 56853-8, 94370-1, 49881-0, 02696-0 #### [facility] ([id number]) [address], [address] [place] [address] Monocytes (Bld) [#/Vol] 0.1 10*3/uL Normal 0-0.9 [facility] Comment on above: Performed By: #### C BCA, CMP, 1987-12, FEPR, 2276-4, 2284-8, 63240-0, 2132-9, 19611-3, 39496-3, 5130-0, 27003-3, 52167-8, 36328-1, 3357-1, 8092-9, 06023-2, 94332-8, 71683-0, 18399-0, 25652-3 #### [facility] ([id number]) [address], [address] [place] [address] Monocytes/100 WBC (Bld) 1.0 % Normal [facility] Comment on above: Performed By: #### C BCA, CMP, 1987-12, FEPR, 2276-4, 2284-8, 00144-5, 2132-9, 30826-5, 85273-3, 5130-0, 74456-4, 73100-8, 38546-4, 3357-1, 8092-9, 27479-7, 44464-8, 27913-6, 30880-7, 20161-7 #### [facility] ([id number]) [address], [address] [place] [address] Neutrophils/100 WBC (Bld) 95.5 % Normal [facility] Comment on above: Performed By: #### C BCA, CMP, 1987-12, FEPR, 2276-4, 2284-8, 01680-7, 2132-9, 38115-9, 86877-3, 5130-0, 84148-8, 27241-9, 91645-8, 3357-1, 8092-9, 51675-6, 10284-7, 22174-4, 65487-5, 41181-2 #### [facility] ([id number]) [address], [address] [place] [address] Platelet mean volume (Bld) [Entitic vol] 6.2 fL Low 7-12 [facility] Comment on above: Performed By: #### C BCA, CMP, 1987-12, FEPR, 2276-4, 2284-8, 34552-4, 2132-9, 58840-2, 41218-1, 5130-0, 64905-2, 06704-6, 66194-7, 3357-1, 8092-9, 12188-1, 27251-4, 93180-0, 87580-8, 07752-9 #### [facility] ([id number]) [address], [address] [place] [address] Platelets (Bld) [#/Vol] 924 10*3/uL High 150-450 [facility] Comment on above: Performed By: #### C SHARATH, CMP, 1987-12, FEPR, 2276-4, 2284-8, 13708-2, 213-9, 77861-0, 89573-1, 5130-0, 44096-3, 81687-0, 32089-8, 3357-1, 8092-9, 99549-5, 09385-9, 56815-7, 48547-2, 79694-1 #### [facility] ([id number]) [address], [address] [place] [address] RBC COUNT 3.27 X10E12/L Low 3.80-5.20 [facility] Comment on above: Performed By: #### C SHARATH, CMP, 1987-12, FEPR, 2276-4, 2284-8, 73643-1, 2132-9, 05597-8, 57409-1, 5130-0, 07690-4, 19102-5, 45811-3, 3357-1, 8092-9, 61788-9, 75631-5, 39679-8, 43890-7, 37405-6 #### [facility] ([id number]) [address], [address] [place] [address] WBC (Bld) [#/Vol] 12.1 10*3/uL High 4.0-11.0 [facility] Comment on above: Performed By: #### C BCA, CMP, 1987-12, FEPR, 2276-4, 2284-8, 30716-6, 2132-9, 08729-8, 02957-5, 5130-0, 53492-9, 52389-1, 43450-7, 3357-1, 8092-9, 58600-7, 56453-7, 95301-4, 79569-5, 53961-8 #### [facility] ([id number]) [address] [facility] [place] [address] ABSOLUTE BASOPHIL 0.2 X10E9/L Normal 0.0-0.2 [facility] Comment on above: Performed By: #### C BCA, CMP, 1987-12, FEPR, 2275-4, 2284-8, 94551-1, 2132-9, 54318-2, 36016-2, 5130-0, 00457-2, 77684-1, 05202-0, 3357-1, 8092-9, 94006-4, 15441-0, 57729-4, 21941-2, 33700-3 #### [facility] ([id number]) [address] [facility], [address] [place] [address] ABSOLUTE NEUTROPHIL 10.4 X10E9/L High 1.5-6.6 [facility] Comment on above: Performed By: #### C BCA, CMP, 1987-12, FEPR, 2275-4, 2284-8, 57647-8, 2132-9, 35486-5, 54969-3, 5130-0, 29911-7, 20198-4, 04059-8, 3357-1, 8092-9, 73962-6, 63872-9, 20459-9, 68069-7, 49340-9 #### [facility] ([id number]) [address], [address] [place] [address] Basophils/100 WBC (Bld) 2.1 % Normal P [facility] Comment on above: Performed By: #### C BCA, CMP, 1987-12, FEPR, 2276-4, 2284-8, 82163-9, 2132-9, 33088-3, 24837-4, 5130-0, 52859-6, 72263-5, 16500-4, 3357-1, 8092-9, 03486-9, 56283-8, 56881-6, 01265-0, 52140-4 #### [facility] ([id number]) [address] [facility], [address] [place] [address] Eosinophils (Bld) [#/Vol] 0.0 10*3/uL Normal 0.0-0.4 [facility] Comment on above: Performed By: #### C SHARATH, [facility], 1987-12, FEPR, 2276-4, 2284-8, 14342-6, 2132-9, 85325-2, 87004-9, 5130-0, 58392-4, 85103-0, 93448-4, 3357-1, 8092-9, 28964-1, 83700-6, 38050-0, 31749-5, 26856-1 #### [facility] ([id number]) [address] [place] [address], [address] [address] Eosinophils/100 WBC (Bld) 0.0 % Normal [facility] Comment on above: Performed By: #### C SHARATH, [facility], 1987-12, FEPR, 2276-4, 2284-8, 03714-3, 2132-9, 24075-3, 42325-7, 5130-0, 84468-3, 40517-1, 83387-9, 3357-1, 8092-9, 43829-5, 50779-9, 58053-8, 59615-6, 69219-9 #### [facility] ([id number]) [address] [place] [address], [address] [place] [address] Erythrocyte distribution width (RBC) [Ratio] 14.6 % Normal 11.5-15.0 [facility] Comment on above: Performed By: #### C SHARATH, CMP, 1987-12, FEPR, 2276-4, 2284-8, 54275-2, 2132-9, 97208-5, 69873-6, 5130-0, 63944-2, 19761-9, 29898-7, 3357-1, 8092-9, 72301-6, 73957-9, 11307-5, 98997-5, 28796-6 #### [facility] ([id number]) [address], [address] [place] [address] Hematocrit (Bld) [Volume fraction] 26.2 % Low 35-47 [facility] Comment on above: Performed By: #### C SHARATH, KELVIN, 1987-12, FEPR, 2276-4, 2284-8, 86503-6, 2132-9, 13857-0, 88665-5, 5130-0, 03253-7, 27316-3, 03093-7, 3357-1, 8092-9, 41422-9, 97476-3, 54770-1, 72890-3, 68662-8 #### [facility] ([id number]) [address], [address] [place] [address] Hemoglobin (Bld) [Mass/Vol] 8.6 g/dL Low 11.7-15.5 [facility] Comment on above: Performed By: #### C SHARATH, KELVIN, 1987-12, FEPR, 2276-4, 2284-8, 56298-7, 2132-9, 83589-1, 15963-9, 5130-0, 01053-1, 11416-2, 71974-2, 3357-1, 8092-9, 76703-8, 96097-0, 59902-0, 50017-0, 29111-2 #### [facility] ([id number]) [address] [facility], [address] [place] [address] Lymphocytes (Bld) [#/Vol] 0.4 10*3/uL Low 1.0-3.5 [facility] Comment on above: Performed By: #### C SHARATH, CMP, 1987-12, FEPR, 2276-4, 2284-8, 53462-0, 2132-9, 11552-7, 96012-2, 5130-0, 89709-2, 46764-6, 18668-0, 3357-1, 8092-9, 58428-7, 11960-4, 96002-0, 19208-5, 72704-1 #### [facility] ([id number]) [address], [address] [place] [address] Lymphocytes/100 WBC (Bld) 3.6 % Normal [facility] Comment on above: Performed By: #### C SHARATH, CMP, 1987-12, FEPR, 2275-4, 2284-8, 45561-4, 2132-9, 54627-0, 81678-4, 5130-0, 36203-4, 98267-1, 25792-6, 3357-1, 8092-9, 68221-1, 10578-6, 14472-0, 49281-3, 89564-1 #### [facility] ([id number]) [address], [address] [place] [address] MCH (RBC) [Entitic mass] 28.1 pg Normal 27-34 [facility] Comment on above: Performed By: #### C SHARATH, CMP, 1987-12, FEPR, 227-4, 2284-8, 93741-2, 2132-9, 69902-9, 22148-9, 5130-0, 48256-4, 86147-6, 08524-5, 3357-1, 8092-9, 54492-8, 18126-1, 19087-3, 23117-1, 67747-9 #### [facility] ([id number]) [address], [address] [place] [address] MCHC (RBC) [Mass/Vol] 32.9 g/dL Normal 32-36 [facility] Comment on above: Performed By: #### C SHARATH, CMP, 1987-12, FEPR, 2276-4, 2284-8, 47613-3, 2132-9, 58106-5, 49449-9, 5130-0, 56868-2, 14779-1, 83138-6, 3357-1, 8092-9, 55478-1, 69817-7, 69022-1, 75445-1, 97154-5 #### [facility] ([id number]) [address], [address] [place] [address] MCV (RBC) [Entitic vol] 85 fL Normal 80-100 P [facility] Comment on above: Performed By: #### C SHARATH, CMP, 1987-12, FEPR, 2275-4, 2284-8, 15918-5, 2132-9, 15347-5, 36619-4, 5130-0, 61293-6, 34257-8, 89271-4, 3357-1, 8092-9, 58029-5, 75103-7, 96447-6, 70318-3, 99258-1 #### [facility] ([id number]) [address], [address] [place] [address] Monocytes (Bld) [#/Vol] 0.1 10*3/uL Normal 0-0.9 [facility] Comment on above: Performed By: #### C SHARATH, CMP, 1987-12, FEPR, 227-4, 2284-8, 33450-8, 2132-9, 52431-6, 32443-9, 5130-0, 26525-9, 30166-2, 05406-9, 3357-1, 8092-9, 08893-4, 59917-9, 10887-8, 53233-1, 57493-1 #### [facility] ([id number]) [address], [address] [place] [address] Monocytes/100 WBC (Bld) 1.0 % Normal P [facility] Comment on above: Performed By: #### C SHARATH, CMP, 1987-12, FEPR, 2276-4, 2284-8, 31666-9, 2132-9, 25485-7, 91386-2, 5130-0, 41842-7, 95699-8, 89254-6, 3357-1, 8092-9, 61680-5, 82015-7, 92934-9, 37196-6, 77640-9 #### [facility] ([id number]) [address] [facility], [address] [place] [address] Neutrophils/100 WBC (Bld) 93.3 % Normal [facility] Comment on above: Performed By: #### C SHARATH, CMP, 1987-12, FEPR, 227-4, 2284-8, 53810-9, 2132-9, 99724-7, 53642-2, 5130-0, 21793-9, 40976-8, 11899-2, 3357-1, 8092-9, 23154-0, 04713-6, 13659-0, 86717-2, 12382-3 #### [facility] ([id number]) [address] [facility], [address] [place] [address] Platelet mean volume (Bld) [Entitic vol] 6.3 fL Low 7-12 [facility] Comment on above: Performed By: #### C SHARATH, CMP, 1987-12, FEPR, 2276-4, 2284-8, 96945-5, 2132-9, 49007-1, 13126-0, 5130-0, 41624-9, 02335-3, 54423-9, 3357-1, 8092-9, 65176-7, 59883-3, 57030-7, 87007-3, 99746-0 #### [facility] ([id number]) [address], [address] [place] [address] Platelets (Bld) [#/Vol] 917 10*3/uL High 150-450 [facility] Comment on above: Performed By: #### C BCA, CMP, 1987-12, FEPR, 2276-4, 2284-8, 79703-6, 2132-9, 39666-5, 73367-0, 5130-0, 39811-0, 74774-2, 05458-2, 3357-1, 8092-9, 75491-1, 73492-3, 46552-6, 21737-5, 94692-8 #### [facility] ([id number]) [address], [address] [place] [address] RBC COUNT 3.07 X10E12/L Low 3.80-5.20 [facility] Comment on above: Performed By: #### C BCA, CMP, 1987-12, FEPR, 2276-4, 2284-8, 68394-0, 2132-9, 65415-8, 06152-7, 5130-0, 37290-5, 36109-9, 83948-3, 3357-1, 8092-9, 04003-1, 82943-9, 31184-7, 87594-7, 73975-4 #### [facility] ([id number]) [address], [address] [place] [address] WBC (Bld) [#/Vol] 11.1 10*3/uL High 4.0-11.0 [facility] Comment on above: Performed By: #### C BCA, CMP, 1987-12, FEPR, 2276-4, 2284-8, 55109-0, 2132-9, 00625-8, 99470-3, 5130-0, 24058-3, 14759-2, 60138-3, 3357-1, 8092-9, 74316-0, 48113-8, 34346-7, 31298-4, 49291-3 #### [facility] ([id number]) [address] [facility] [place] [address] CBC auto differentialon 08-27 Basophils (Bld) [#/Vol] [...] nucl RBC Auto (Bld) [#/Vol] 12.1 High [facility] Basophils (Bld) [#/Vol] 0.2 10*3/uL [facility] Basophils/100 WBC (Bld) 2.1 % P [facility] Eosinophils (Bld) [#/Vol] 0.0 10*3/uL [facility] Eosinophils/100 WBC (Bld) 0.0 % [facility] Erythrocyte distribution width (RBC) [Ratio] 14.6 % 11.5 - 15.0 % [facility] Hematocrit (Bld) [Volume fraction] 26.2 % Low 35 - 47 % [facility] Hemoglobin (Bld) [Mass/Vol] 8.6 g/dL Low 11.7 - 15.5 g/dL [facility] Interpretation and review of laboratory results Abnormal [facility] Lymphocytes (Bld) [#/Vol] 0.4 10*3/uL Low [facility] Lymphocytes/100 WBC (Bld) 3.6 % [facility] MCH (RBC) [Entitic mass] 28.1 pg 27 - 34 pg [facility] MCHC (RBC) [Mass/Vol] 32.9 g/dL 32 - 3 6 g/dL [facility] MCV (RBC) [Entitic vol] 85 fL 80 - 100 fL [facility] Monocytes (Bld) [#/Vol] 0.1 10*3/uL [facility] Monocytes/100 WBC (Bld) 1.0 % P [facility] Neutrophils (Bld) [#/Vol] 10.4 10*3/uL High [facility] Neutrophils/100 WBC (Bld) 93.3 % [facility] Platelet mean volume (Bld) [Entitic vol] 6.3 fL Low 7 - 12 fL [facility] Platelets (Bld) [#/Vol] 917 10*3/uL High [facility] RBC (Bld) [#/Vol] 3.07 10*6/uL Low [facility] WBC corrected for nucl RBC Auto (Bld) [#/Vol] 11.1 High [facility] Cole 09-23-2023 Albumin [Mass/Vol] 3.0 g/dL Low 3.2-5.3 [facility] Comment on above: Performed By: #### C BCA, CMP, 1987-12, FEPR, 2276-4, 2284-8, 02408-0, 2132-9, 24143-0, 36228-7, 5130-0, 60809-7, 84346-5, 31129-9, 3357-1, 8092-9, 20795-9, 14523-0, 81721-3, 87183-1, 35772-4 #### [facility] ([id number]) [address] [place] [address], [address] [place] [address] ALP [Catalytic activity/Vol] 227 U/L High 39-130 [facility] Comment on above: Performed By: #### C BCA, CMP, 1987-12, FEPR, 227-4, 2284-8, 07369-9, 2132-9, 04770-4, 09643-3, 5130-0, 67656-9, 16063-1, 00077-4, 3357-1, 8092-9, 75294-4, 31466-4, 93773-5, 67642-3, 85412-5 #### [facility] ([id number]) [address] [place] [address], [address] [place] [address] ALT [Catalytic activity/Vol] 11 U/L Normal 0-31 [facility] Comment on above: Performed By: #### C BCA, CMP, 1987-12, FEPR, 2276-4, 2284-8, 94884-1, 2132-9, 65395-1, 74638-5, 5130-0, 23687-7, 48711-9, 91566-0, 3357-1, 8092-9, 09901-8, 26559-9, 58406-5, 37772-7, 35317-2 #### [facility] ([id number]) [address] [facility], [address] [place] [address] Anion gap [Moles/Vol] 13 mmol/L Normal 5-15 [facility] Comment on above: Performed By: #### C BCA, CMP, 1987-12, FEPR, 2276-4, 2284-8, 88518-0, 2132-9, 73844-8, 58984-7, 5130-0, 46084-9, 15036-1, 71822-5, 3357-1, 8092-9, 49020-5, 78710-3, 31961-5, 99973-4, 97473-2 #### [facility] ([id number]) [address] [facility], [address] [place] [address] AST [Catalytic activity/Vol] 12 U/L Normal 0-41 [facility] Comment on above: Performed By: #### C BCA, CMP, 1987-12, FEPR, 227-4, 2284-8, 57986-4, 2132-9, 78405-7, 29340-6, 5130-0, 49019-8, 84791-0, 96481-6, 3357-1, 8092-9, 19785-6, 01341-2, 01237-4, 15099-3, 91320-5 #### [facility] ([id number]) [address] [facility] [place] [address] Bilirubin [Mass/Vol] 0.6 mg/dL Normal 0.3-1.2 [facility] Comment on above: Performed By: #### C BCA, CMP, 1987-12, FEPR, 2276-4, 2284-8, 32633-2, 2132-9, 94814-0, 68963-0, 5130-0, 89278-2, 42116-6, 52403-1, 3357-1, 8092-9, 07365-0, 71081-6, 39844-2, 14757-2, 94371-1 #### [facility] ([id number]) [address], [address] [place] [address] Calcium [Mass/Vol] 8.6 mg/dL Normal 8.5-10.5 [facility] Comment on above: Performed By: #### C BCA, CMP, 1987-12, FEPR, 2276-4, 2284-8, 13408-8, 2132-9, 77596-7, 03409-4, 5130-0, 37344-7, 71544-9, 54721-5, 3357-1, 8092-9, 98317-5, 62377-5, 86648-2, 59918-9, 16543-9 #### [facility] ([id number]) [address], [address] [place] [address] Chloride [Moles/Vol] 101 mmol/L Normal 98-109 [facility] Comment on above: Performed By: #### C BCA, CMP, 1987-12, FEPR, 227-4, 2284-8, 12245-7, 2132-9, 18611-9, 41454-4, 5130-0, 03057-9, 62836-7, 33525-7, 3357-1, 8092-9, 61518-0, 21175-9, 82836-6, 52418-7, 96803-4 #### [facility] ([id number]) [address], [address] [place] [address] CO2 [Moles/Vol] 25 mmol/L Normal 22-32 [facility] Comment on above: Performed By: #### C BCA, CMP, 1987-12, FEPR, 227-4, 2284-8, 05050-8, 2132-9, 55353-4, 64449-2, 5130-0, 90464-7, 53468-2, 93231-8, 3357-1, 8092-9, 45852-1, 43880-5, 48416-0, 96329-9, 86217-9 #### [facility] ([id number]) [address] [place] [address], [address] [place] [address] Creatinine [Mass/Vol] 0.49 mg/dL Normal 0.40-1.00 [facility] Comment on above: Result Comment: METH OD TRACEABLE TO IDMS STANDARD Performed By: #### C BCA, CMP, 1987-12, FEPR, 227-4, 228-8, 42596-1, 2132-9, 01272-4, 89756-0, 5130-0, 28368-2, 93776-0, 09534-0, 3357-1, 8092-9, 02023-4, 67085-4, 41284-2, 84114-7, 69339-4 #### [facility] ([id number]) [address] [place] [address], [address] [place] [address] eGFR (CKD-EPI) NON-RACE DEPENDENT >90 Normal >59 [facility] Comment on above: Result Comment: Reported eGFR is based on the CKD-EPI 2020 equation that does not use a race coefficient. Performed By: #### C BCA, CMP, 1987-12, FEPR, 2275-, 2283-8, 45760-5, 2131-9, 97435-3, 69258-5, 5130-0, 11015-2, 12957-5, 22344-8, 3357-1, 8092-9, 61579-9, 36049-8, 66975-3, 48733-1, 63001-4 #### [facility] ([id number]) [address] [place] [address], [address] [place] [address] Glucose [Mass/Vol] 141 mg/dL High 65-99 [facility] Comment on above: Performed By: #### C BCA, CMP, 1987-12, FEPR, 2276-4, 2284-8, 65982-0, 2132-9, 34126-8, 50897-2, 5130-0, 26992-0, 06468-0, 29495-5, 3357-1, 8092-9, 61765-5, 22152-4, 60628-0, 29359-1, 72570-8 #### [facility] ([id number]) [address], [address] [place] [address] Potassium [Moles/Vol] 3.7 mmol/L Normal 3.5-5.0 [facility] Comment on above: Performed By: #### C BCA, CMP, 1987-12, FEPR, 2275-4, 2284-8, 89598-0, 2132-9, 89886-0, 29796-0, 5130-0, 81101-9, 18540-8, 55056-5, 3357-1, 8092-9, 02510-4, 39815-4, 68133-8, 95513-4, 58028-2 #### [facility] ([id number]) [address] [facility], [address] [place] [address] Protein [Mass/Vol] 6.9 g/dL Normal 6.0-8.0 [facility] Comment on above: Performed By: #### C BCA, CMP, 1987-12, FEPR, 2275-4, 2283-8, 90370-3, 213-9, 47888-7, 10051-9, 5130-0, 74547-3, 81200-8, 51000-7, 3357-1, 8092-9, 93296-6, 57598-9, 43530-1, 61468-3, 14490-7 #### [facility] ([id number]) [address], [address] [place] [address] Sodium [Moles/Vol] 139 mmol/L Normal 134-146 [facility] Comment on above: Performed By: #### C BCA, CMP, 1987-12, FEPR, 227-4, 2284-8, 46399-9, 2132-9, 70960-5, 27108-5, 5130-0, 03339-8, 59699-6, 22244-0, 3357-1, 8092-9, 19135-8, 72427-8, 15358-8, 51048-7, 08703-0 #### [facility] ([id number]) [address] [place] [address], [address] [address] Urea nitrogen [Mass/Vol] 14 mg/dL Normal 5-27 [facility] Comment on above: Performed By: #### C BCA, CMP, 1987-12, FEPR, 2276-4, 2284-8, 21452-2, 2132-9, 68230-5, 25249-9, 5130-0, 66531-0, 08187-2, 29804-6, 3357-1, 8092-9, 13807-7, 66662-7, 63213-8, 11356-7, 10615-0 #### [facility] ([id number]) [address] [place] [address], [address] [address] CRP [Mass/Vol]on 09-23-2023 C REACTIVE PROTEIN 13.3 mg/dL High 0.000-0.744 [facility] Comment on above: Performed By: #### C BCA, CMP, 1987-12, FEPR, 2276-4, 2284-8, 34727-6, 2132-9, 72198-5, 18564-2, 5130-0, 53578-4, 05082-4, 24064-6, 3357-1, 8092-9, 58990-1, 16489-1, 14887-8, 00053-3, 55246-9 #### [facility] ([id number]) [address] [place] [address] [employer] ABon 09-23-2023 Centromere protein B Ab Ql (S) High [facility] Comment on above: CLIA ID [id number] [employer] protein B Ab Ql ( S)on 09-23-2023 Interpretation and review of laboratory results Abnormal [facility] CENTROMERE ANTIBODY >8.0 High <1.0 [facility] Comment on above: Performed By: #### C BCA, CMP, 1987-, FEPR, 2276-4, 2284-8, 76384-0, 2132-9, 24435-1, 29213-3, 5130-0, 84345-2, 27415-6, 95725-0, 3357-1, 8092-9, 60953-2, 12544-5, 31676-4, 91988-5, 57042-9 #### [facility] ([id number]) [address] [place] [address], [address] [place] [address] Chromatin Ab Qlon 09-23-2023 CHROMATIN AB IGG 0.4 AI Normal <1.0 [facility] Comment on above: Performed By: #### C BCA, CMP, 1987-12, FEPR, 2275-4, 2284-8, 84793-5, 2132-9, 17370-7, 54392-0, 5130-0, 36297-7, 98229-1, 66192-8, 3357-1, 8092-9, 66528-1, 27679-3, 40387-5, 60767-8, 02011-4 #### [facility] ([id number]) [address] [place] [address], [address] [place] [address] Clinical Pathologyon 024 Clinical Pathology Normal [facility] Comment on above: Result Comment: [facility] [address] [place] [address] Clinical Pathology Report Patient Name:JOSE DAVID:1945 (Age: 78)Gender:FTaken:4Reported:4Physician(s):Olga Pan M.D. ([phone])Copy To: Rec. #:[id number]: #[id number] Final Pathologic Diagnosis Hypoalbuminemia with increase in acute phase reactants. No monoclonal bands identified. Report Electronically Signed Out 09/27/2023kevin Bains MD Interpretation performed at [facility], [address] [place] [address], License number: [id number]. Clinical History E53.8, H53.8, R29.90. SERUM PROTEIN ELECTROPHORESIS SAMPLE NO: [id number] ELECTROPHORETIC FRACTION CONCENTRATIONS (g/dL) PATIENT REFERENCE RANGE [...] IgA : 180 IgM : 285 Free [place]: 2.91 Free Lambda: 2.38 Free [place]/Lambda ratio: 1.22 Specimen(s) Received 1: Serum Protein Electrophoresis 2: Serum IEP Fee Codes(s): 1; 75538-54 2; 15406-08 Clinical Pathology Blood Sme ar Reviewon 09-23-2023 Clinical Pathology Blood Smear Review Normal [facility] Comment on above: Result Comment: [facility] [address] [place] [address] Clinical Pathology Report Patient Name:JOSE DAVID:1945 (Age: 78)Gender:FTaken:4Reported:4Physician(s):Olga Pan M.D. ([phone])Copy To: Rec. #:[id number]: #[id number] Final Pathologic Diagnosis Peripheral blood smear: Neutrophilic [...] Out hna/09/26/2023Og Martinez M.D. Interpretation performed at [facility], [address] [place] [address], License number: [id number]. Clinical History R29.9. BLOOD SMEAR EVALUATION CBC (09/23/2023 0818): WBC = 12.1 X10E9/L; HGB = 9.1 g/dL; HCT = 27.8%; MCV = 85 fL; PLT = 924 X10E9/L OTHER LAB DATA: Noncontributory. BLOOD SMEAR: Leukocytes: Neutrophilic leukocytosis with cytotoxic changes and lymphocytopenia. Erythrocytes: Moderate normocytic normochromic anemia. Platelets: Thrombocytosis. Specimen(s) Received Blood Smear Review Fee Codes(s): 1; [address] Cobalamin (Vitamin B12) [Mas s/Vol]on 09-23-2023 [facility] Comprehensive metabolic pane cole 09-23-2023 Albumin [Mass/Vol] 3.0 g/dL Low 3.2 - 5.3 g/dL [facility] ALP [Catalytic activity/Vol] 227 U/L High 39 - 130 U/L [facility] ALT No additional P-5'-P [Catalytic activity/Vol] 11 U/L 0 - 31 U/L [facility] Anion gap [Moles/Vol] 13 mmol/L 5 - 15 mmol/L [facility] AST [Catalytic activity/Vol] 12 U/L 0 - 41 U/L [facility] Bilirubin [Mass/Vol] 0.6 mg/dL 0.3 - 1 .2 mg/dL [facility] Calcium [Mass/Vol] 8.6 mg/dL 8.5 - 10. 5 mg/dL [facility] Chloride [Moles/Vol] 101 mmol/L 98 - 10 9 mmol/L [facility] CO2 [Moles/Vol] 25 mmol/L 22 - 32 mmol/L [facility] Creatinine [Mass/Vol] 0.49 mg/dL 0.40 - 1.00 mg/dL [facility] Comment on above: METHOD TRACEABLE TO [facility] STANDARD eGFR (CKD-EPI)non-race dependent - PINF [facility] Comment on above: Reported eGFR is based on the CKD-EPI 2020 equation that does not use a race coefficient. Glucose [Mass/Vol] 141 mg/dL High 65 - 99 mg/dL [facility] Potassium [Moles/Vol] 3.7 mmol/L 3.5 - 5.0 mmol/L [facility] Protein [Mass/Vol] 6.9 g/dL 6.0 - 8.0 g/dL [facility] Sodium [Moles/Vol] 139 mmol/L 134 - 146 mmol/L [facility] Urea nitrogen [Mass/Vol] 14 mg/dL 5 - 27 mg/dL [facility] DNA double strand Ab Qn (S)o n 09-23-2023 DOUBLE STRANDED DNA 1 IU/ML Normal <5 [facility] Comment on above: Result Comment: Interpretation-------- <5 Negative 5-9 Indeterminate >9 Positive Performed By: #### C BCA, CMP, 1988-5, FEPR, 2276-4, 2284-8, 23571-3, 2132-9, 49720-4, 88755-9, 5130-0, 05520-7, 00418-3, 74973-1, 3357-1, 8092-9, 33964-4, 18440-3, 04361-2, 92644-7, 53654-7 #### [facility] ([id number]) [address], [address] [place] [address] Direct Coombson 09-23-2023 Polyspecific HENRRY Negative [facility] ESR Photometric method (Bld) [Velocity]on 09-23-2023 Interpretation and review of laboratory results Abnormal [facility] ESR, ERYTHROCYTE SEDIMENTATION RATE 114 mm/h High 0-30 [facility] Comment on above: Performed By: #### C SHARATH, KELVIN, 1987-12, FEPR, 6-4, 2284-8, 90970-5, 2132-9, 26851-7, 26056-2, 5130-0, 66032-2, 13303-7, 59456-9, 3357-1, 8092-9, 93782-4, 26359-7, 19962-0, 62550-6, 58773-2 #### [facility] ([id number]) [address], [address] [place] [address] Erythrocyte Sedimentation Ra te (ESR)on 09-23-2023 ESR Photometric method (Bld) [Velocity] 114 mm/h High 0 - 30 mm/h [facility] FERRITINon 09-23-2023 Ferritin [Mass/Vol] 478 ng/mL High 11-307 [facility] Comment on above: Performed By: #### C SHARATH, KELVIN, 1987-12, FEPR, 2275-4, 4-8, 31284-7, 2131-9, 72027-1, 75849-1, 5130-0, 04551-9, 06198-3, 79351-5, 3357-1, 8092-9, 67448-6, 15504-6, 18298-8, 63945-5, 36293-4 #### [facility] ([id number]) [address], [address] [place] [address] FLOW CYTOMETRYon 09-23-2023 FLOW CYTOMETRY SEE SEPARATE REPORT, REVIEWED BY PATHOLOGIST Normal [facility] Comment on above: Performed By: #### C SHARATH, CMP, 1987-12, FEPR, 2275-4, 2284-8, 08125-6, 2132-9, 12555-9, 60654-4, 5130-0, 97283-3, 14134-9, 90992-8, 3357-1, 8092-9, 45055-2, 54238-2, 90177-2, 98773-2, 18012-7 #### [facility] ([id number]) [address] [facility], [address] [place] [address] Ferritinon 09-23-2023 Ferritin [Mass/Vol] 478 ng/mL High 11 - 307 ng/mL [facility] Ferritin [Mass/Vol]on 2023 Interpretation and review of laboratory results Abnormal [facility] Folateon 09-23-2023 Folate [Mass/Vol] 13.0 ng/mL 5.8 - PINF ng/mL [facility] Comment on above: NEW REFERENCE RANGE Folate [Mass/Vol]on 09-23-19 24 [facility] FOLIC ACID 13.0 ng/mL Normal >5.8 [facility] Comment on above: Result Comment: NEW REFERENCE RANGE Performed By: #### C BCA, CMP, 1987-12, FEPR, 6-4, 4-8, 21376-0, 2132-9, 40441-5, 21683-8, 5130-0, 71912-9, 89306-5, 90954-4, 3357-1, 8092-9, 49401-2, 35033-3, 45083-4, 23212-1, 18566-6 #### [facility] ([id number]) [address] [place] [address], [address] [place] [address] Haptoglobinon 09-23-2023 Haptoglobin Nephelometry [Mass/Vol] 613 mg/dL High 32 - 228 mg/dL [facility] Haptoglobin Nephelometry [Ma ss/Vol]on 09-23-2023 Interpretation and review of laboratory results Abnormal [facility] HAPTOGLOBIN 613 mg/dL High 32-228 [facility] Comment on above: Performed By: #### C BCA, CMP, 1987-12, FEPR, 2276-4, 2284-8, 82813-0, 2132-9, 77129-8, 45056-7, 5130-0, 67962-4, 60201-5, 20180-7, 3357-1, 8092-9, 77066-8, 57367-6, 77456-8, 66752-9, 45757-5 #### [facility] ([id number]) [facility] [facility], [address] [place] [address] Hepatitis panel, acuteon HAV IgM IA Ql Non-Reactive Non-Reactiv e^Non-React harshil [facility] HBV core IgM IA Ql Negative Negative^ Ne gative [facility] HBV surface Ag IA Ql Negative Negativ e^Ne [facility] HCV Ab IA Ql Non-Reactive Non-Reactiv e^Non-React harshil [facility] Comment on above: If recent infection suspected, recommend repeat testing (>2 months). Vpseuo-ad-kvalsc ratio is <0.80. [facility] Homocysteine [Moles/Vol]on 0 09-23-2023 HOMOCYSTEINE 9.29 mcmol/L Normal 3.36-20.44 [facility] Comment on above: Performed By: #### C BCA, CMP, 1987-, FEPR, 2276-4, 2284-8, 83196-2, 2132-9, 56744-2, 87570-4, 5130-0, 75304-0, 49909-0, 69059-8, 3357-1, 8092-9, 22561-6, 61056-4, 90997-6, 82055-2, 07046-1 #### [facility] ([id number]) [address] [place] [address], [address] [place] [address] [facility] Homocysteine totalon 024 Homocysteine [Moles/Vol] 9.29 umol/L [facility] IMMUNOELECTROPHORESIS FOR TH ERAPY MONITORINGon 09-23-2023 FREE KECIA/LAMBD RATIO 1.22 Normal 0.26-1.65 [facility] Comment on above: Performed By: #### C BCA, CMP, 1987-12, FEPR, 2276-4, 2284-8, 41412-4, 2132-9, 90047-0, 86325-1, 5130-0, 50250-6, 92541-2, 75747-6, 3357-1, 8092-9, 82513-0, 47098-0, 37284-3, 01485-6, 73667-9 #### [facility] ([id number]) [address], [address] [place] [address] FREE KAPPA LT CHAINS 2.91 mg/dL High 0.33-1.94 [facility] Comment on above: Performed By: #### C SHARATH, [facility], 1987-12, FEPR, 2276-4, 2284-8, 43961-1, 2132-9, 06781-4, 79266-8, 5130-0, 89539-6, 71937-2, 32747-5, 3357-1, 8092-9, 86174-5, 80403-8, 99192-4, 28867-8, 95246-8 #### [facility] ([id number]) [address], [address] [place] [address] FREE LAMBDA LT CHAINS 2.38 mg/dL Normal 0.57-2.63 [facility] Comment on above: Performed By: #### C BCA, CMP, 1987-12, FEPR, 2276-4, 2284-8, 39280-6, 2132-9, 46549-4, 95278-9, 5130-0, 63744-5, 66767-9, 26037-7, 3357-1, 8092-9, 05806-7, 51832-0, 16278-0, 09413-4, 95950-3 #### [facility] ([id number]) [address], [address] [place] [address] IgA [Mass/Vol] 180 mg/dL Normal 68-378 [facility] Comment on above: Performed By: #### C BCA, CMP, 1987-12, FEPR, 2276-4, 2284-8, 90848-0, 2132-9, 61774-2, 17571-7, 5130-0, 21819-3, 37226-3, 37510-5, 3357-1, 8092-9, 73730-3, 56098-5, 23261-9, 43623-4, 58732-1 #### [facility] ([id number]) [address], [address] [place] [address] IgG [Mass/Vol] 992 mg/dL Normal 635-1741 [facility] Comment on above: Performed By: #### C SHARATH, CMP, 1987-12, FEPR, 2276-4, 2284-8, 51016-1, 2132-9, 29678-7, 29560-7, 5130-0, 51996-5, 55101-5, 61296-0, 3357-1, 8092-9, 76817-9, 44761-1, 53175-8, 17173-6, 93110-5 #### [facility] ([id number]) [address], [address] [place] [address] IgM [Mass/Vol] 285 mg/dL High 45-281 [facility] Comment on above: Performed By: #### C BCA, CMP, 1987-12, FEPR, 2276-4, 2284-8, 96780-9, 2132-9, 30895-2, 73282-7, 5130-0, 94092-3, 09444-6, 46588-8, 3357-1, 8092-9, 47938-2, 14792-9, 55079-7, 67340-8, 42176-2 #### [facility] ([id number]) [address], [address] [place] [address] IMMUNE PROFILE INTERP SEE SEPARATE REPORT Normal [facility] Comment on above: Performed By: #### C SHARATH, CMP, 1987-, FEPR, 2276-4, 2284-8, 77484-8, 2132-9, 71219-2, 47022-5, 5130-0, 27888-8, 45458-0, 79079-2, 3357-1, 8092-9, 29082-8, 04794-4, 56943-7, 66663-6, 82643-6 #### [facility] ([id number]) [address], [address] [place] [address] IRON PROFILEon 09-23-2023 Iron [Mass/Vol] 25 ug/dL Low 50-170 [facility] Comment on above: Performed By: #### C SHARATH, CMP, 1987-12, FEPR, 2276-4, 2284-8, 17499-1, 2132-9, 48667-5, 84370-0, 5130-0, 59443-1, 38201-7, 27713-5, 3357-1, 8092-9, 60830-4, 16858-7, 94873-5, 91051-3, 24206-4 #### [facility] ([id number]) [address] [facility] [address], [address] [place] [address] IRON BINDING 179 ug/dL Low 250-425 [facility] Comment on above: Performed By: #### C SHARATH, CMP, 1987-12, FEPR, 227-4, 2284-8, 45273-9, 2132-9, 82373-2, 85794-7, 5130-0, 95932-1, 65007-9, 37824-1, 3357-1, 8092-9, 34012-6, 32499-1, 16714-0, 47480-4, 27236-0 #### [facility] ([id number]) [address] [facility], [address] [place] [address] IRON SATURATION 14 % SATURATION Low 15-50 [facility] Comment on above: Performed By: #### C BCA, CMP, 1988-5, FEPR, 2276-4, 2284-8, 89265-3, 2132-9, 57983-7, 18419-9, 5130-0, 82452-0, 18555-5, 45288-1, 3357-1, 8092-9, 80039-7, 73459-6, 16507-4, 50492-2, 44431-2 #### [facility] ([id number]) [address] [facility], [address] [place] [address] Iron and TIBCon 09-23-2023 Interpretation and review of laboratory results Abnormal [facility] Iron [Mass/Vol] 25 ug/dL Low 50 - 170 ug/dL [facility] Iron binding capacity [Mass/Vol] 179 ug/dL Low 250 - 425 ug/dL [facility] Iron saturation [Mass fraction] 14 Low [facility] JAK2 gene p.Usp854Dco Molgen Ql (Bld/Tiss)on 09-23-2023 JAK2 V617F MUTATION, BLOOD SEE COMMENTS 09/26/2023 10:21 AM Normal [facility] Comment on above: Result Comment: NOTE Test Result Flag Unit RefValue ----- JAK2 V617F Mutation Detection, B JAK2 Result see interpretation JAK2 V617F Mutation Detection, B See Note Peripheral blood, JAK2 V617F mutation analysis: Negative for JAK2 V617F. A negative [id number] test result does not exclude the possibility [...] assay has been determined at 0.06% (see [facility] Interpretive Handbook for method details). This test was developed and its performance characteristics determined by [facility] in a manner consistent with CLIA requirements. This test has not been cleared or approved by the U.S. Food and Drug Administration. Test Performed by: [address] [address] Quality Process Engineer: Thierry Duran M.D. Ph.D.; CLIA# [id number] Performed By: #### C SHARATH, KELVIN, 1987-12, FEPR, 6-4, 4-8, 16459-2, 2131-9, 25290-8, 97796-1, 5130-0, 07934-5, 73103-3, 27763-0, 3357-1, 8092-9, 91071-6, 73327-1, 06412-2, 09835-6, 39761-0 #### [facility] ([id number]) [address] [place] [address], [address] [place] [id number] Tiki 1 AB IGGon 09-23-2023 Anileridine Ql (U) NINF [facility] LDHon 09-23-2023 LDH [Catalytic activity/Vol] 140 U/L 100 - 235 U/L [facility] LDH [Catalytic activity/Vol] on 09-23-2023 [facility] LDH 140 U/L Normal 100-235 [facility] Comment on above: Performed By: #### C SHARATH, CMP, 1987-12, FEPR, 2276-4, 2284-8, 64226-0, 2131-9, 01648-9, 42248-3, 5130-0, 80476-0, 66703-8, 66960-4, 3357-1, 8092-9, 38185-5, 77092-2, 46359-4, 85797-6, 35835-1 #### [facility] ([id number]) [address] [place] [address], [address] [place] [address] Methylmalonate [Moles/Vol]on 09-23-2023 MMA QN 0.23 umol/L Normal <=0.40 [facility] Comment on above: Result Comment: NOTE This test was developed and its performance characteristics determined by [facility] [place] ([facility]). It has not been cleared or approved by the FDA. [facility] is regulated under CLIA as qualified to perform high-complexity testing. This test is used for clinical purposes. It should not be regarded as investigational or for research. Test Performed By: [place] [address] Middleware Administrator: Meño Hernandez III, M.D. CLIA #[id number] Narrative diagnostic report Molgen Yaw (Bld/Tiss) [Interp]on 09-23-2023 BCR/ABL PCR w/Reflex SEE COMMENTS 2023 04:24 PM Normal [facility] Comment on above: Result Comment: NOTE Test Result Flag Unit RefValue ----- BCR/ABL1 Reflex, Qual/Quant Specimen Type EDTA WHOLE BLOOD BCR/ABL1 Reflex Result see interpretation Interpretation See Note Peripheral blood, BCR/ABL1 mRNA analysis, qualitative: Negative. No BCR/ABL1 mRNA transcripts were detected. Method summary: The presence or absence of BCR/ABL1 mRNA transcripts was evaluated using a qualitative, reverse trace evidence technician PCR-based assay. The assay detects nearly all published and theoretical BCR/ABL1 fusion forms including the common e13/e14-a2 (p210) and e1-a2 (p190) transcripts, as well as other rarer variants (e.g. e19-a2 (p230), e13/e14-a3, e1-a3, etc.). The limit of detection for this assay is 0.1%. Please contact the lab at [phone] with questions or if additional testing is required. See [facility] Test Catalog for additional method details. Signing Pathologist: Ammon Titus M.D. (Jane), Ph.D. ADDITIONAL INFORMATION This test was developed and its performance characteristics determined by [facility] in a manner consistent with CLIA requirements. This test has not been cleared or approved by the U.S. Food and Drug Administration. Test Performed by: [place] [address] Quality Process Engineer: Thierry Duran M.D. Ph.D.; CLIA# [id number] Neutrophil cytoplasmic Ab IF Ql (S)on 09-23-2023 ANCA See Below Normal [facility] Comment on above: Result Comment: [...] results and clinical correlation. Test Performed By: [facility] [employer] [address] [place] [address] Middleware Administrator: Charlene Naqvi IIIIA #[id number] No Panel Informationon 09-23 [facility] Interpretation and review of laboratory results Abnormal [facility] Nuclear Ab IA Ql (S)on 09-23 Interpretation and review of laboratory results Abnormal [facility] SILVIA Screen w/reflex Positive Abnormal NEG [facility] Comment on above: Result Comment: Testing performed using multiplex flow immunoassay. Eleven different antigens associated with systemic autoimmune diseases (dsDNA,Sm,Sm/[employer]AF[employer] SAFE,Chromatin, SSA,SSB,Tiki-1,Scl70,Ribo P,Centromere B) are included in this screening test. Performed By: #### C BCA, CMP, 1988-5, FEPR, 2276-4, 2284-8, 08719-1, 2132-9, 78180-9, 05348-4, 5130-0, 55785-3, 46330-4, 44766-0, 3357-1, 8092-9, 48527-1, 57920-9, 82799-1, 34127-5, 92258-7 #### [facility] ([id number]) [address] [place] [address] comment (Bld) [Interp]on 09-23-2023 STAFF REVIEW NOTE Normal [facility] Comment on above: Result Comment: [facility] [address] [place] [address] Clinical Pathology Report Patient Name:JOSE DAVID:1945 (Age: 78)Gender:FTaken:4Reported:4Physician(s):Olga Pan M.D. ([phone])Copy To: Rec. #:[id number]: #[id number] Final Pathologic Diagnosis Peripheral blood smear: Neutrophilic [...] Out hna/09/26/2023Og Martinez M.D. Interpretation performed at [facility], [address] [place] [address], License number: [id number]. Clinical History R29.9. BLOOD SMEAR EVALUATION CBC (09/23/2023 0818): WBC = 12.1 X10E9/L; HGB = 9.1 g/dL; HCT = 27.8%; MCV = 85 fL; PLT = 924 X10E9/L OTHER LAB DATA: Noncontributory. BLOOD SMEAR: Leukocytes: Neutrophilic leukocytosis with cytotoxic changes and lymphocytopenia. Erythrocytes: Moderate normocytic normochromic anemia. Platelets: Thrombocytosis. Specimen(s) Received Blood Smear Review Fee Codes(s): 1; 20708 Performed By: #### C BCA, CMP, 1988-5, FEPR, 2276-4, 2284-8, 34564-8, 2132-9, 26197-2, 02040-3, 5130-0, 63729-9, 30930-9, 25091-8, 3357-1, 8092-9, 24319-6, 99000-9, 10662-5, 60833-4, 69319-8 #### [facility] ([id number]) [address] [place] [address], [address] [place] [address] [employer] AB IgGon 09-23-2023 Ribonucleoprotein extractable nuclear IgG Qn (S) [facility] Comment on above: CLIA ID [id number] Rheumatoid factoron 09-23-19 Rheumatoid factor Nephelometry Qn (S) 21 High [facility] Rheumatoid factor Nephelomet ry Qn (S)on 09-23-2023 Interpretation and review of laboratory results Abnormal [facility] RHEUMATOID FACTOR 21 IU/mL High <20 [facility] Comment on above: Performed By: #### C SHARATH, CMP, 1987-12, FEPR, 2275-4, 2284-8, 84808-8, 2132-9, 78031-1, 41798-9, 5130-0, 81789-4, 51298-2, 06847-4, 3357-1, 8092-9, 27385-7, 91996-4, 32792-7, 15450-5, 06173-1 #### [facility] ([id number]) [address] [place] [address], [address] [place] [address] Ribonucleoprotein extractabl e nuclear IgG Qn (S)on 09-23-2023 [employer] ANTIBODY IGG <0.2 Normal <1.0 [facility] Comment on above: Performed By: #### C SHARATH, CMP, 1987-12, FEPR, 2275-, 2284-8, 41241-6, 2132-9, 88443-1, 38198-4, 5130-0, 70605-9, 83854-7, 24804-1, 3357-1, 8092-9, 73387-3, 36137-4, 68006-6, 13689-7, 05268-0 #### [facility] ([id number]) [address] [place] [address], [address] [place] [address] Ribosomal P IgG Qn (S)on RIBOSOME P ANTIBODY <0.2 Normal <1.0 [facility] Comment on above: Performed By: #### C SHARATH, CMP, 1987-12, FEPR, 2275-4, 2284-8, 66855-6, 2132-9, 21020-3, 86179-1, 5130-0, 91346-0, 48960-5, 35729-2, 3357-1, 8092-9, 57088-4, 03395-9, 96907-4, 86733-5, 34638-8 #### [facility] ([id number]) [address] [place] [address], [address] [place] [address] SCL-70 extractable nuclear A b Ql (S)on 09-23-2023 SCL 70 ANTIBODY <0.2 Normal <1.0 [facility] Comment on above: Performed By: #### C BCA, CMP, 1987-12, FEPR, 2275-, 2283-8, 20858-1, 213-9, 90703-4, 17366-3, 5130-0, 90355-3, 32338-4, 26771-0, 3357-1, 8092-9, 11196-9, 02562-3, 78372-9, 51341-2, 80556-0 #### [facility] ([id number]) [address] [place] [address], [address] [place] [address] SERUM PROTEIN ELECTROPHORESI Son 09-23-2023 Albumin [Mass/Vol] 2.5 g/dL Low 3.4-5.3 [facility] Comment on above: Performed By: #### C BCA, CMP, 1987-12, FEPR, 2275-4, 2283-8, 73519-6, 2131-9, 03888-8, 35378-8, 5130-0, 69253-1, 48255-7, 82250-1, 3357-1, 8092-9, 42688-3, 86769-2, 65316-0, 59155-4, 71294-3 #### [facility] ([id number]) [address] [place] [address], [address] [place] [address] ALPHA 1 GLOBULIN 0.6 g/dL High 0.1-0.4 [facility] Comment on above: Performed By: #### C BCA, CMP, 1987-12, FEPR, 2275-, 2283-8, 41592-2, 2132-9, 17177-3, 61007-2, 5130-0, 56745-8, 52775-6, 02258-4, 3357-1, 8092-9, 11133-2, 32956-8, 29632-6, 54352-4, 36789-5 #### [facility] ([id number]) [address], [address] [place] [address] ALPHA 2 GLOBULIN 1.2 g/dL High 0.4-1.1 [facility] Comment on above: Performed By: #### C BCA, CMP, 1987-12, FEPR, 2276-4, 2284-8, 65759-2, 2132-9, 61676-3, 46455-5, 5130-0, 60899-9, 59487-1, 63291-6, 3357-1, 8092-9, 38603-0, 77742-5, 12866-2, 66851-4, 49158-1 #### [facility] ([id number]) [address], [address] [place] [address] BETA GLOBULIN 0.8 g/dL Normal 0.5-1.2 [facility] Comment on above: Performed By: #### C BCA, CMP, 1987-12, FEPR, 6-4, 2284-8, 84801-7, 2132-9, 84538-0, 20882-3, 5130-0, 22048-7, 09492-4, 99393-3, 3357-1, 8092-9, 64970-6, 80255-4, 53218-3, 79138-2, 05744-2 #### [facility] ([id number]) [address], [address] [place] [address] GAMMA GLOBULIN 1.0 g/dL Normal 0.5-1.6 [facility] Comment on above: Performed By: #### C BCA, CMP, 1987-12, FEPR, 6-4, 2284-8, 32667-2, 2132-9, 84043-1, 03419-0, 5130-0, 94268-4, 61849-7, 71825-6, 3357-1, 8092-9, 06121-6, 52239-1, 51759-5, 34019-9, 60933-5 #### [facility] ([id number]) [address] [address], [address] [place] [address] PROT. ELECTROPHORESIS INTERP SEE SEPARATE REPORT Normal [facility] Comment on above: Performed By: #### C BCA, CMP, 1987-12, FEPR, 2276-4, 2284-8, 18197-8, 2132-9, 99387-3, 10133-9, 5130-0, 11543-6, 94264-9, 39591-9, 3357-1, 8092-9, 02216-9, 23109-4, 77296-3, 17770-9, 28270-8 #### [facility] ([id number]) [address] [address], [address] [place] [address] Protein [Mass/Vol] 6.1 g/dL Normal 6.0-8.0 [facility] Comment on above: Performed By: #### C BCA, CMP, 1987-12, FEPR, 2276-4, 2284-8, 82904-0, 2132-9, 32521-3, 91044-2, 5130-0, 99393-2, 00861-2, 74444-4, 3357-1, 8092-9, 55063-9, 82436-3, 54641-3, 52108-4, 64164-2 #### [facility] ([id number]) [address] [address], [address] [place] [address] SSA antibodyon 09-23-2023 Sjogrens syndrome-A extractable nuclear Ab Qn (S) [facility] Comment on above: CLIA ID [id number] SSB Antibodyon 09-23-2023 Sjogrens syndrome-B extractable nuclear IgG Qn (S) [facility] Comment on above: CLIA ID [id number] Scleroderma antibodyon 09-23 SCL-70 extractable nuclear Ab Ql (S) [facility] Comment on above: CLIA ID [id number] Sjogrens syndrome-A extracta ble nuclear Ab Qn (S)on 09-23-2023 SSA ANTIBODY <0.2 Normal <1.0 [facility] Comment on above: Performed By: #### C SHARATH, KELVIN, 1986-12, FEPR, 2276-4, 2284-8, 18246-2, 2132-9, 70070-0, 45369-4, 5130-0, 81619-6, 38547-2, 85230-8, 3357-1, 8092-9, 83868-6, 11548-0, 04443-5, 98127-5, 68928-8 #### [facility] ([id number]) [address] [place] [address], [address] [place] [address] Sjogrens syndrome-B extracta ble nuclear IgG Qn (S)on 09-23-2023 SSB ANTIBODY <0.2 Normal <1.0 [facility] Comment on above: Performed By: #### C SHARATH, KELVIN, 1986-12, FEPR, 2276-4, 2284-8, 35827-4, 2132-9, 25126-3, 63389-0, 5130-0, 87691-7, 28074-8, 60504-2, 3357-1, 8092-9, 07397-8, 42730-4, 56354-6, 57574-7, 55385-6 #### [facility] ([id number]) [address] [place] [address], [address] [place] [address] Mejia extractable nuclear Ab +Ribonucleoprotein extractable nuclear IgG Qn (S)on 09-23-2023 MEJIA/[employer]IVATE M[employer]GAGE BANKER SAFE AB IGG <0.2 Normal <1.0 [facility] Comment on above: Performed By: #### C SHARATH, KELVIN, 1986-12, FEPR, 2276-4, 2284-8, 89087-6, 2132-9, 17171-4, 75814-2, 5130-0, 43704-8, 74635-1, 56033-3, 3357-1, 8092-9, 13631-6, 84581-8, 57122-8, 25946-8, 16754-3 #### [facility] ([id number]) [address] [place] [address], [address] [place] [address] Mejia extractable nuclear Ig G Qn (S)on 09-23-2023 ANTI-MEJIA AB IGG <0.2 Normal <1.0 [facility] Comment on above: Performed By: #### C BCA, CMP, 1986-12, FEPR, 2276-4, 2284-8, 67394-0, 2132-9, 70869-1, 47923-0, 5130-0, 71272-4, 88385-0, 56484-4, 3357-1, 8092-9, 47549-6, 88819-8, 52244-2, 41699-4, 87111-8 #### [facility] ([id number]) [address] [place] [address], [address] [place] [address] Mejia/[employer] B[employer]ER SAFE AB IgGon 4 Mejia extractable nuclear Ab+Ribonucleoprotein extractable nuclear IgG Qn (S) [facility] Surgical Pathologyon 024 Surgical Pathology Normal [facility] Comment on above: Result Comment: [facility] [address] [place], [place] [address] Flow Cytometry Patient Name:JOSE DAVIDAccession #:[id number]. Rec. #:[id number]:[facility] CenterTaken:4DOB:1945 (Age: 78)Location:[facility] 8 ACUTE O867Vejmuilg:09/23/2023Gender: FBill. Type:ToledoReported:Priority:RBjim #:[id number] Class:TTH Special Procedure OnlyPhysician(s): Charlene Chan MD [...] patterns of antigen expression are not seen. Palmer on the lymphoid population demonstrates a mixed population of phenotypically unremarkable T-cells, natural killer cells, and polyclonal B-cells, without a detectable monoclonal population. Immunophenotyping antibodies tested: CD2, CD3, CD4, CD5, CD7, CD8, CD10, CD13, CD16, CD19, CD20, CD23, CD33, CD34, CD38, CD43, CD45, CD56, CD117, CD123, CD138, [place], and Lambda. Immunophenotyping Comment: Immunophenotyping has been used in this diagnostic evaluation. This test was developed and its performance characteristics determined by the [facility] Department. It has not [...] (Vitamin B12) [Mass/Vol] 248 pg/mL Normal 180-914 [facility] Comment on above: Performed By: #### C BCA, CMP, 1988-5, FEPR, 2276-4, 2284-8, 57145-9, 2132-9, 85665-5, 62337-4, 5130-0, 60506-8, 85693-1, 14891-9, 3357-1, 8092-9, 26808-4, 79153-9, 33528-1, 22390-0, 77070-0 #### [facility] ([id number]) [facility], [address] [place] [address] Vitamin B12on 09-23-2023 Cobalamin (Vitamin B12) [Mass/Vol] 248 pg/mL 180 - 914 pg/mL [facility] dRVVT/dRVVT.excess phospholi pid Coag (PPP) [Ratio]on 09-23-2023 [facility] Negative Normal [facility] Comment on above: Performed By: #### C BCA, CMP, 1988-5, FEPR, 2276-4, 2284-8, 98634-9, 2132-9, 72622-0, 75572-8, 5130-0, 60398-1, 62765-1, 03734-5, 3357-1, 8092-9, 81511-6, 97447-5, 14719-8, 47352-9, 03034-8 #### [facility] ([id number]) [address] [place] [address], [address] [place] [address] CT CSPINE WO CONon 3 CT CSPINE [...] by: SHANTELL GARCIA Date: 2022-12-25 08:22 Normal [facility] XR KNEE RT 4V or [...] lateral and patellofemoral compartments where there is bwgj-ah-cfel contact. 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 Electronically authenticated by: KARAN JENKINS Date: 2022-04-25 19:06 Normal [facility] Patient Educationon 09-10-19 22 Patient Education [...] height. This can be done either in [place]inean ([place].S[place] or metric measurements. Note that charts are available to help you find your BMI quickly and easily without having to do these calculations yourself. To calculate your BMI in [place]an ([place].S[place] measurements, your health care provider will: [...] problems. ? BMI can be measured using Guinean measurements or metric measurements. ? To interpret [...] 04/22/2005 Document Revised: 07/24/2018 Document Reviewed: 06/24/2018 [employer] Patient Education ? 2020 [employer] Obstetrics and Gynecology Overactive Bladder, Adult [...] A spina (more content not included)... 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 Napoles [...] Protein Urine Dipstick: Negative (09/10/21 08:26:00) Specific Emma Urine Dipstick: 1.025 (09/10/21 08:26:00) Urine Appearance Urine Dipstick: Clear (09/10/21 08:26:00) Urine Color Urine Dipstick: Yellow (09/10/21 08:26:00) Urobilinogen Urine Dipstick: Normal 0.2-1 EU/dl (09/10/21 08:26:00) pH Urine Dipstick: 5 (09/10/21 08:26:00) Normal [facility] Comment on above: Result Comment: Elec tronically Signed By: Gilbert NAPOLES MD\.br\Date and Time Signed: 09/10/21 08:49 EST\.br\Electronically Co-Signed By: Aurora Hdz MA\.br\Date and Time Co-Signed: 09/10/21 08:46 EST Physician Orderon 09-07-2021 Physician Order [id number] D:127 Normal [facility] Vital Signs Date Time Vital Sign Value Performing Clinician Facility 10-13-2024 14:35-0500 Body height 152.4 cm [facility] 10-13-2024 14:35-0500 Body mass index (BMI) [Ratio] 26.4 kg/m2 [facility] 10-13-2024 14:35-0500 Body temperature 96 [degF] [facility] 10-13-2024 14:35-0500 Body weight 61.46 kg [facility] 10-13-2024 14:35-0500 Diastolic blood pressure 80 mm[Hg] [facility] 10-13-2024 14:35-0500 Heart rate 82 /min [facility] 10-13-2024 14:35-0500 SaO2% (BldA) [Mass fraction] 97 % [facility] 10-13-2024 14:35-0500 Systolic blood pressure 126 mm[Hg] [facility] 10-11-2024 09:31-0500 Body height 157.5 cm Myra Cota APRN-PROPERTY ASSISTANT Work Phone: [facility] 10-11-2024 09:31-0500 Body mass index (BMI) [Ratio] 24.58 kg/m2 Myra Cota APRN-PROPERTY ASSISTANT Work Phone: [facility] 10-11-2024 09:31-0500 Body temperature 97.81 [degF] Myra Samy WATCH GUARD GATE-PROPERTY ASSISTANT Work Phone: [facility] 10-11-2024 09:31-0500 Body weight 60.96 kg Myranathanael Cota WATCH GUARD GATE-PROPERTY ASSISTANT Work Phone: [facility] 10-11-2024 09:31-0500 Diastolic blood pressure 76 mm[Hg] Myramaribel Cota WATCH GUARD GATE-PROPERTY ASSISTANT Work Phone: [facility] 10-11-2024 09:31-0500 Heart rate 76 /min Myramaribel Cota WATCH GUARD GATE-PROPERTY ASSISTANT Work Phone: [facility] 10-11-2024 09:31-0500 Respiratory rate 18 /min Myranathanael Cota WATCH GUARD GATE-PROPERTY ASSISTANT Work Phone: [facility] 10-11-2024 09:31-0500 SaO2% (BldA) [Mass fraction] 100 % Myranathanael Cota WATCH GUARD GATE-PROPERTY ASSISTANT Work Phone: [facility] 10-11-2024 09:31-0500 Systolic blood pressure 152 mm[Hg] Myra Cota WATCH GUARD GATE-PROPERTY ASSISTANT Work Phone: [facility] 07-12-2024 13:05-0500 Body height 152.4 cm [facility] 07-12-2024 13:05-0500 Body mass index (BMI) [Ratio] 26 kg/m2 [facility] 07-12-2024 13:05-0500 Body temperature 97.3 [degF] [facility] 07-12-2024 13:05-0500 Body weight 60.44 kg [facility] 07-12-2024 13:05-0500 Diastolic blood pressure 72 mm[Hg] [facility] 07-12-2024 13:05-0500 Heart rate 90 /min [facility] 07-12-2024 13:05-0500 SaO2% (BldA) [Mass fraction] 96 % [facility] 07-12-2024 13:05-0500 Systolic blood pressure 118 mm[Hg] [facility] 04-13-2024 10:47-0400 Body height 152.4 cm [facility] 04-13-2024 10:47-0400 Body mass index (BMI) [Ratio] 25.7 kg/m2 [facility] 04-13-2024 10:47-0400 Body weight 59.87 kg [facility] 04-13-2024 10:47-0400 Diastolic blood pressure 76 mm[Hg] [facility] 04-13-2024 10:47-0400 Heart rate 81 /min [facility] 04-13-2024 10:47-0400 SaO2% (BldA) [Mass fraction] 99 % [facility] 04-13-2024 10:47-0400 Systolic blood pressure 122 mm[Hg] [facility] 02-05-2024 11:56-0400 Body mass index (BMI) [Ratio] 23.92 kg/m2 Mouna Bautista MD Work Phone: [facility] 02-05-2024 11:56-0400 Body weight 59.33 kg Mouna Bautista MD Work Phone: [facility] 02-05-2024 11:56-0400 Diastolic blood pressure 81 mm[Hg] Mouna Bautista MD Work Phone: [facility] 02-05-2024 11:56-0400 Heart rate 78 /min Mouna Bautista MD Work Phone: [facility] 02-05-2024 11:56-0400 SaO2% (BldA) [Mass fraction] 96 % Mouna Bautista MD Work Phone: [facility] 02-05-2024 11:56-0400 Systolic blood pressure 136 mm[Hg] Mouna Bautista MD Work Phone: [facility] 01-02-2024 13:46-0400 Body height 157.5 cm Mahnaz Ochoa MD Work Phone: [facility] 01-02-2024 13:46-0400 Body mass index (BMI) [Ratio] 23.5 kg/m2 Mahnaz Ochoa MD Work Phone: [facility] 01-02-2024 13:46-0400 Body weight 58.29 kg Mahnaz Ochoa MD Work Phone: [facility] 01-02-2024 13:46-0400 Diastolic blood pressure 86 mm[Hg] Mahnaz Ochoa MD Work Phone: [facility] 01-02-2024 13:46-0400 Heart rate 86 /min Mahnaz Ochoa MD Work Phone: [facility] 01-02-2024 13:46-0400 Systolic blood pressure 152 mm[Hg] Mahnaz Ochoa MD Work Phone: [facility] 12-29-2023 09:05-0400 Body height 152.4 cm [facility] 12-29-2023 09:05-0400 Body mass index (BMI) [Ratio] 25.4 kg/m2 [facility] 12-29-2023 09:05-0400 Body temperature 97.5 [degF] [facility] 12-29-2023 09:05-0400 Body weight 58.96 kg [facility] 12-29-2023 09:05-0400 Heart rate 86 /min [facility] 12-29-2023 09:05-0400 Respiratory rate 16 /min [facility] 12-29-2023 09:05-0400 SaO2% (BldA) [Mass fraction] 96 % [facility] 11-06-2023 15:01-0400 Body height 157.5 cm Allie Hoskins MD Work Phone: [facility] 11-06-2023 15:01-0400 Body mass index (BMI) [Ratio] 22.09 kg/m2 Allie Hoskins MD Work Phone: [facility] 11-06-2023 15:01-0400 Body temperature 98.6 [degF] Allie Hoskins MD Work Phone: [facility] 11-06-2023 15:01-0400 Body weight 54.8 kg Allie Hoskins MD Work Phone: [facility] 11-06-2023 15:01-0400 Diastolic blood pressure 65 mm[Hg] Allie Hoskins MD Work Phone: [facility] 11-06-2023 15:01-0400 Heart rate 109 /min Allie Hoskins MD Work Phone: [facility] 11-06-2023 15:01-0400 Respiratory rate 24 /min Allie Hoskins MD Work Phone: [facility] 11-06-2023 15:01-0400 SaO2% (BldA) [Mass fraction] 97 % Allie Hoskins MD Work Phone: [facility] 11-06-2023 15:01-0400 Systolic blood pressure 151 mm[Hg] Allie Hoskins MD Work Phone: [facility] 10-16-2023 11:04-0500 Body height 152.4 cm [facility] 10-16-2023 11:04-0500 Body mass index (BMI) [Ratio] 23.6 kg/m2 [facility] 10-16-2023 11:04-0500 Body weight 54.88 kg [facility] 10-16-2023 11:04-0500 Diastolic blood pressure 72 mm[Hg] [facility] 10-16-2023 11:04-0500 Heart rate 88 /min [facility] 10-16-2023 11:04-0500 SaO2% (BldA) [Mass fraction] 98 % [facility] 10-16-2023 11:04-0500 Systolic blood pressure 134 mm[Hg] [facility] 10-16-2023 09:50-0500 Diastolic blood pressure 74 mm[Hg] Mouna Bautista MD Work Phone: [facility] 10-16-2023 09:50-0500 Heart rate 72 /min Mouna Bautista MD Work Phone: [facility] 10-16-2023 09:50-0500 Systolic blood pressure 140 mm[Hg] Mouna Bautista MD Work Phone: [facility] 10-16-2023 09:49-0500 Body height 157.5 cm Mouna Bautista MD Work Phone: [facility] 10-16-2023 09:49-0500 Body mass index (BMI) [Ratio] 21.51 kg/m2 Mouna Bautista MD Work Phone: [facility] 10-16-2023 09:49-0500 Body weight 53.34 kg Mouna Bautista MD Work Phone: [facility] 10-16-2023 09:49-0500 Respiratory rate 18 /min Mouna Bautista MD Work Phone: [facility] 09-26-2023 15:31-0500 Body temperature 98.2 [degF] Bart Milian MD Work Phone: [facility] 09-26-2023 15:31-0500 Heart rate 103 /min Bart Milian MD Work Phone: [facility] 09-26-2023 15:31-0500 Respiratory rate 16 /min Bart Milian MD Work Phone: [facility] 09-26-2023 15:31-0500 SaO2% (BldA) [Mass fraction] 96 % Bart Milian MD Work Phone: [facility] 09-26-2023 07:20-0500 Diastolic blood pressure 84 mm[Hg] Bart Milian MD Work Phone: [facility] 09-26-2023 07:20-0500 Systolic blood pressure 152 mm[Hg] Bart Milian MD Work Phone: [facility] 09-24-2023 13:40-0500 Body height 157.5 cm Bart Milian MD Work Phone: [facility] 09-24-2023 13:40-0500 Body mass index (BMI) [Ratio] 21.21 kg/m2 Bart Milian MD Work Phone: [facility] 09-24-2023 13:40-0500 Body weight 52.6 kg Bart Milian MD Work Phone: [facility] Encounters Encounter Date Encounter Type Care Provider Facility Start: 10-13-2024 End: 10-13-2024 ambulatory [facility] Work Phone: Start: 10-13-2024 End: 10-13-2024 Patient encounter procedure [facility] Work Phone: Start: 10-11-2024 End: 10-11-2024 Office outpatient visit 40 minutes Myra Cota APRN-[facility] Work Phone: Adelaida Faby [facility] - Medical Oncology Comment on above: Normocytic anemia (P rimary Dx); Thrombocytosis; Anemia, unspecified type; Iron deficiency; Giant cell arteritis ([facility]-HCC); Vision blurred Start: 10-11-2024 End: 10-11-2024 ambulatory MYRA COTA [facility] Start: 10-06-2024 End: 10-06-2024 [facility] Start: 09-02-2024 Non-patient / [facility]-visit [facility] Work Phone: Start: 07-16-2024 End: 07-16-2024 Patient encounter procedure [facility] Work Phone: Start: 07-12-2024 End: 07-12-2024 ambulatory [facility] Work Phone: Start: 07-12-2024 End: 07-12-2024 Patient encounter procedure [facility] Work Phone: Start: 07-07-2024 Non-patient / Non-visit [facility] Work Phone: Start: 05-05-2024 End: 05-05-2024 ambulatory [facility] Start: 04-30-2024 Non-patient / Non-visit [facility] Work Phone: Start: 04-14-2024 Patient encounter procedure [facility] Start: 04-13-2024 End: 04-13-2024 ambulatory [facility] Work Phone: Start: 04-13-2024 End: 04-13-2024 Patient encounter procedure [facility] Work Phone: Start: 03-08-2024 End: 03-08-2024 Orders Only Roxie aguiar [facility] - [facility] On[facility] Comment on above: Normocytic anemia (P rimary Dx); Thrombocytosis; Anemia, unspecified type Start: 03-05-2024 Non-patient / Non-visit [facility] Work Phone: Start: 02-05-2024 End: 02-05-2024 Office outpatient visit 10 minutes Mouna Bautista MD Work Phone: [facility] Comment on above: Giant cell arteritis (CMS-HCC) (Primary Dx) Start: 02-05-2024 ambulatory MOUNA BAUTISTA [facility] Start: 01-28-2024 End: 01-28-2024 ambulatory [facility] Start: 01-02-2024 End: 01-02-2024 ambulatory [facility] Start: 01-02-2024 End: 01-02-2024 Office outpatient visit 25 minutes Mahnaz Ochoa MD Work Phone: [facility] Comment on above: Giant cell arteritis ([facility]-HCC) (Primary Dx) Start: 12-29-2023 End: 12-29-2023 ambulatory [facility] Work Phone: Start: 12-29-2023 End: 12-29-2023 Patient encounter procedure [facility] Work Phone: Start: 12-29-2023 Non-patient / Non-visit [facility] Work Phone: Start: 11-06-2023 End: 11-06-2023 Office outpatient visit 40 minutes Allie Hoskins MD Work Phone: Adelaida Hobbs [facility] - [facility] Oncology Comment on above: Normocytic anemia (P rimary Dx); Thrombocytosis Start: 11-06-2023 Orders Only Malinda Arrington RN [facility] - Medical Oncology Comment on above: Giant cell arteritis (CMS-HCC) (Primary Dx); Stroke-like symptoms; Vision blurred; Anemia, unspecified type Start: 10-30-2023 Non-patient / Non-visit [facility] Work Phone: Start: 10-17-2023 Telephone encounter Beronica Su[facility] Neurology Comment on above: Med Refill Start: 10-16-2023 End: 10-16-2023 ambulatory [facility] Work Phone: Start: 10-16-2023 End: 10-16-2023 Patient encounter procedure [facility] Work Phone: Start: 10-16-2023 End: 10-16-2023 ambulatory MOUNA BAUTISTA [facility] Start: 10-16-2023 End: 10-16-2023 Office outpatient visit 15 minutes Mouna Bautista MD Work Phone: [facility] Comment on above: Giant cell arteritis (CMS-HCC) (Primary Dx) Start: 09-29-2023 Telephone encounter Rosa Suh Neurology Comment on above: Hospital Follow-up Start: 09-27-2023 End: 09-27-2023 Evaluation and management of inpatient RICKIE Damon [facility] Start: 09-24-2023 End: 09-27-2023 Evaluation and management of inpatient TREVIN LÓPEZ [facility] Start: 09-24-2023 End: 09-27-2023 Evaluation and management of inpatient CARLITOS CARABALLO [facility] Start: 09-24-2023 ambulatory JOHN PATEL [facility] Start: 09-23-2023 End: 09-26-2023 Evaluation and management of inpatient [facility] CONCHITA [facility] Start: 09-23-2023 End: 09-26-2023 Evaluation and management of inpatient Tono Pan MD Work Phone: [facility] - GEN 8 Acute Comment on above: B12 deficiency (Prim lisa Dx); Thrombocytosis; Vision blurred; Temporal arteritis ([facility]) Start: 03-24-2023 End: 03-25-2023 ambulatory [facility] Start: 03-10-2023 End: 03-11-2023 ambulatory Naomy Lujan MD Facility: [facility] Start: 03-03-2023 End: 03-04-2023 [facility]ulatory [facility] Start: 02-17-2023 End: 02-18-2023 ambulatory Naomy Lujan MD Facility: [facility] Start: 02-03-2023 End: 02-04-2023 ambulatory Naomy Lujan MD Facility: [facility] Start: 01-24-2023 End: 01-25-2023 ambulatory Naomy Lujan MD Facility: [facility] Start: 12-25-2022 End: 12-25-[address] PATO LYNN Facility:[facility] Start: 04-25-2022 End: 04-25-[address] CRISTOPHER BUCHANAN . Facility:[facility] Procedures Date Procedure Procedure Detail Performing Clinician Start: 11-06-2023 Follow-up visit Follow-up ALLIE HOSKINS [...] 09-23-2023 Bcr/abl1 major breakpnt qualitative/quantitative Elton Hinders WATCH GUARD GATE-PROPERTY ASSISTANT Work Phone: Start: 09-23-2023 Antihuman globulin direct each antiserum Summerfield Hinders WATCH GUARD GATE-PROPERTY ASSISTANT Work Phone: Start: 09-23-2023 ANCA Trevin López [...] Work Phone: Start: 09-23-2023 Jak2 gene analysis [id number] variant Bart Milian MD Work Phone: Start: [...] Author Start: 10-11-2025 Tobacco Screening [facility] Start: 03-08-2025 Adult BMI Screening [facility] Start: 02-04-2025 Adult BMI Screening Adult BMI [facility] Start: 02-04-2025 Tobacco Screening [facility] Start: 01-01-2025 Adult BMI Screening Adult [facility] Start: 01-01-2025 Tobacco Screening Tobacco Screening [facility] Start: 12-10-2024 End: 12-10-2024 Patient encounter procedure 12/10/2024 2:30 PM EDT Office Visit Adelaida Keane [facility] - Medical Oncology [address] [place] [phone] Allie Hoskins MD [address] [place] [address] [address] [place], [place] [address] Adelaida Hobbs [place] [facility] Start: 11-05-2024 Adult BMI Screening Adult BMI Scre[facility] Start: 10-16-2024 Adult BMI Screening Adult BMI Scre[facility] Start: 10-16-2024 Tobacco Screening Tobacco Screening [facility] Start: 09-24-2024 Adult BMI Screening Adult BMI Screening [facility] Start: 09-24-2024 Tobacco Screening Tobacco Screening [facility] Start: 09-23-2024 Depression Screening Depression [facility] Start: 09-09-2024 End: 09-09-2024 Patient encounter procedure 09/09/2024 1:15 PM EST Office Visit Adelaida Keane [facility] [address] [place] [phone] Allie Hoskins MD [address] [place] [address] Adelaida Keane [facility] Start: 04-25-2024 Influenza vaccination Influenza Vaccine [facility] Start: 03-05-2024 End: 03-05-2024 Patient encounter procedure 03/05/2024 2:15 PM EDT Office Visit Adelaida Keane [facility] [address] [place] [address] Allie Hoskins MD [address] [place] [phone] Adelaida Keane [facility] Start: 02-05-2024 End: 02-05-2024 Patient encounter procedure 02/05/2024 11:30 AM EDT Office Visit [facility] [address] [place] [address] Mouna Bautista MD [address], [address] [address] [facility] Start: 01-15-2024 End: 01-15-2024 Patient encounter procedure 01/15/2024 11:00 AM EDT Office Visit [facility] [address] [place] [address] Mouna Bautista MD [address], [address] [address] [facility] Start: 01-02-2024 End: 01-02-2024 Patient encounter procedure 01/02/2024 1:15 PM EDT Office Visit [facility] [address] [place] [phone] Darci Santana MD [address] [place] [id number] [facility] Start: 12-05-2023 End: 12-05-2023 Patient encounter procedure 12/05/2023 10:15 AM EDT Office Visit [facility] [address] [place] [address] Darci Santana MD [address] [place] [address] [facility] Start: 11-06-2023 End: 11-06-2023 Patient encounter procedure 11/06/2023 3:30 PM EDT Office Visit Adelaida Keane [facility] [address] [place] [address] Allie Hoskins MD [address] [facility] [address] [place] [address] [facility] Start: 10-16-2023 End: 10-16-2023 Patient encounter procedure 10/16/2023 9:10 AM EST Office Visit [facility] [address] [place] [address] Mouna Bautista MD [address] [address] [facility] Start: 04-25-2023 Influenza vaccination Influenza Vaccine [facility] Start: 2011 Fall Risk Screening Fall Risk Screening [facility] Start: 1996 Administration of varicella zoster vaccine Zoster (Shingles) Vaccine (1 of 2) [facility] Start: 1965 DTaP,Tdap and Td Vaccines (1 - Tdap) DTaP,Tdap and Td Vaccines (1 - Tdap) [facility] Start: 1945 Medicare Annual Wellness Visit Medicare Annual Wellness Visit [facility] End: 09-26-2024 Basic metabolic 2000 panel - Serum or Plasma Basic Metabolic Panel Lab Routine Vision blurred 1 Occurrences starting 09/26/2023 until 09/26/2024 [employer] Comment on above: 1 Occurrences starting 09/26/2023 until 09/26/2024 End: 09-26-2024 CBC W Auto Differential panel - Blood CBC auto differential Lab Routine Thrombocytosis 1 Occurrences starting 09/26/2023 until 09/26/2024 [employer] Comment on above: 1 Occurrences starting 09/26/2023 until 09/26/2024 End: 11-05-2024 CBC W Auto Differential panel - Blood CBC auto differential Lab Routine Giant cell arteritis (CMS-HCC) Stroke-like symptoms Vision blurred Anemia, unspecified type every 2 months for 2 Occurrences starting 11/06/2023 until 11/05/2024 [employer] Work Phone: Comment on above: every 2 months for 2 Occurrences startin g 11/06/2023 until 11/05/2024 End: 11-05-2024 Ferritin [Mass/volume] in Serum or Plasma Ferritin Lab Routine Giant cell arteritis (CMS-HCC) Stroke-like symptoms Vision blurred Anemia, unspecified type every 2 months for 2 Occurrences starting 11/06/2023 until 11/05/2024 [employer] Comment on above: every 2 months for 2 Occurrences startin g 11/06/2023 until 11/05/2024 End: 09-23-2023 Flow cytometry blood only [employer] Work Phone: Comment on above: Once for 1 Occurrences starting 09/23/19 24 until 09/23/2023 Immunoelectrophoresi s for Therapy Monitoring Immunoelectrophoresis for Therapy Monitoring Lab Routine 09/23/2023 12:56 PM EST [employer] Work Phone: End: 11-05-2024 Iron and TIBC Iron and TIBC Lab Routine Giant cell arteritis (CMS-HCC) Stroke-like symptoms Vision blurred Anemia, unspecified type every 2 months for 2 Occurrences starting 11/06/2023 until 11/05/2024 [employer] Comment on above: every 2 months for 2 Occurrences startin g 11/06/2023 until 11/05/2024 Methylmalonate [Moles/volume] in Serum or Plasma Methylmalonic acid screen Lab Routine 09/23/2023 12:57 PM EST [employer] [facility] End: 09-23-2023 Methylmalonic acid screen Methylmalonic acid screen Lab Routine Once for 1 Occurrences starting 09/23/2023 until 09/23/2023 [facility] Work Phone: Comment on above: Once for 1 Occurrences starting 09/23/19 24 until 09/23/2023 Protein electrophore sis, serum Protein electrophoresis, serum Lab Routine 09/23/2023 12:56 PM EST [employer] [facility] Payers Date Payer Category Payer Medicare HMO [employer] MEDICARE [id number] 2023 Medicare [id number] 2022 Medicare 2016 Private Health Insurance [id number] 1959 Medicare [id number] 1945 Unknown [id number] .1.044357.3.579 .2.59 1945 Unknown [id number] 2.840.1.576266.3.579 .2.593 1945 Unknown [id number] 2.840.1.063997.3.579 .2. 1945 Unknown [id number] 2.840.1.002129.3.579 .2. 1945 Unknown [id number] 2.840.1.649163.3.579 .2. 1945 Unknown [id number] 2.16.840.1.124511.3.579 .2.196 1946 Unknown [id number] 2.16.840.1.123901.3.579 .2. 1946 Unknown [id number] 2.16.840.1.812404.3.579 .2. 1946 Unknown [id number] 2.16.840.1.387631.3.579 .2.128 1946 Unknown [id number] 2.16.840.1.384233.3.579 .2.128 1946 Unknown [id number] 2.16.840.1.723307.3.579 .2.128 1946 Unknown [id number] 2.16.840.1.424945.3.579 .2.1285 1946 Unknown [id number] 2.16.840.1.782079.3.579 .2.1285 1946 Unknown [id number] 2.16.840.1.009773.3.579 .2.1285 1946 Unknown [id number] 2.16.840.1.976517.3.579 .2.1285 1946 Unknown [id number] 2.16.840.1.463786.3.579 .2.1285 1946 Unknown [id number] 2.16.840.1.578234.3.579 .2.128 1946 Unknown [id number] 2.16.840.1.411349.3.579 .2.128 1946 Unknown [id number] 2.16.840.1.479749.3.579 .2.128 1946 Unknown [id number] 2.16.840.1.180222.3.579 .2.1285 1946 Unknown [id number] 2.16.840.1.961303.3.579 .2.128 1946 Unknown [id number] 2.16.840.1.553043.3.579 .2.1286 1946 Unknown [id number] 2.16.840.1.956307.3.579 .2.1286 1946 Unknown [id number] 2.16.840.1.469414.3.579 .2.1286 1946 Unknown [id number] 2.16.840.1.004013.3.579 .2.1286 Self-pay Self Pay [id number] Social History Date Type Detail Facility Start: 10-16-2023 End: 04-13-2024 Tobacco smoking status NHIS Ex-smoker (finding) [facility] Start: 1945 Sex Assigned At Female F [facility] Start: 07-12-2024 End: 10-13-2024 Sex Female (finding) [facility] Start: 09-23-2023 Tobacco smoking stat us [facility] Never smoked tobacco [facility] Start: 09-23-2023 Tobacco use and exposure Smoke less tobacco non-user [facility] Start: 01-02-2024 End: 10-11-2024 Alcoholic beverage intake Lifetime non-drinker (finding) [facility] Start: 10-05-2020 End: 09-23-2023 History of Social function [facility] Start: 10-05-2020 End: 09-23-2023 Alcohol Use Disorder Identification Test - Consumption [AUDIT-C] [facility] How often to you hav e a drink containing alcohol? Never [facility] How many standard dr inks containing alcohol do you have on a typical day? Patient does not drink [facility] Start: 1945 Sex assigned at Not on file P [facility] Goals Date Patient Goal Desired Activity /State Personal health goal Comment on above: Formatting of this n ote might be different from the original. Evaluation of progress towards goal: Home with dtr, self care Clinical Notes 09-23-2023 to 10-11-2024 Myra Cota, WATCH GUARD GATE-PROPERTY ASSISTANT - 10/11/2024 9:30 AM ESTPatient Instructions Note Date & Type Note Facility 10-11-2024 History of Present illness Narrative Images from the original note were not included. [facility] [address] [place] [phone] 10/11/2024 Chief Complaint Patient presents with Follow-up [...] ferrous sulfate b.i.d.. She worked with her boiler tube blower to change these medications. 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 Over the weekend patients vision in left eye continued to worsen and eventually lost all vision in left eye. Patient was seen by geothermal heat pump machinist 09/22/2023 and time she would decreased vision also in her right eye. It was recommended that she go straight to the emergency department, for concern for giant cell arteritis. Initially she went to [facility] where they gave her Solu-Medrol 250 mg IV 1 dose and then transferred her to [facility]. When she arrived at [facility] she had complete vision loss [...] day, repeat CBC and iron study at [facility] in 2 months. Follow-up in 4 months. [...] patient/family/caregiver Referring and communicating with other health home health aide caregiver (not separately reported) Documenting clinical information in the electronic or other health record Independently interpreting results (not separately reported) and communicating results to the patient/family/caregiver Care coordination (not separately reported) ------ Please note that portions of this note may have been generated using voice recognition M*Modal dictation software. Although every effort was made to ensure the accuracy of any automated transcriptions, some errors may have occurred. ALANNA Garcia 03/08/24 1507 ALANNA Garcia 10/11/24 1457 documented in this encounter [employer] 10-11-2024 Instructions ALANNA Garcia - 10/11/2024 9:30 [...] vitamin B12 folate documented in this encounter [facility] 10-06-2024 Note Subjective Patient ID: Jose David is a 79 y.o. female who presents for No chief complaint on file.. HPI She was admitted to [facility] end of August 2023 due [...] every 3 months to monitor for toxicity. [facility] 05-05-2024 Note Subjective Patient ID: Jose David is a 78 y.o. female who presents for Follow-up (1 headache a few weeks ago. Increased itching for a few months ). HPI She was admitted to [facility] end of August 2023 due [...] every 3 months to monitor for toxicity. [facility] 04-13-2024 Evaluation note Diagnosis Onset Date Resolution At high risk for falls acute Au 2023 10:44am Dry skin dermatitis acute Augus t 2023 10:44am GERD (gastroesophageal reflux disease) acute April 13 10:44am History of cataract extraction with lens replacement acute April 13 10:44am Medicare annual wellness visit, subsequent acute April 13 10:44am Temporal arteritis acute April 13, 2024 10:44am Vision loss, bilateral acute [facility] 2023 10:44am [facility] Work Phone: 1(406) 278-824107-15-2024 History of Present illness Narrative* Roxie Saldivar RN - 03/08/2024 2:46 PM EDT The patient is here for AMY follow up, labs and plan of care were reviewed with Myra ANESTHESIOLOGY PHYSICIAN. The following recommendations were made: Continue ferrous sulfate 325 mg twice daily Continue vitamin B12 1000 mcg daily Labs in 3 months CBC-d, iron panel, ferritin, vitamin B12 Follow up in 6 months with same labs prior Patient & daughter verbalized understanding, AVS given documented in this encounterRivers[facility]06-13-[facility] History of Present illness Narrative* Mouna Bautista MD - 02/05/2024 11:40 AM EDT Images from the original note were not included. To: Giovanna Graf, WATCH GUARD GATE-ANESTHESIOLOGY PHYSICIAN HPI: Jose David is a 78 y.o. [...] 09/25/2023 Performed by Kristel Reid MD at [facility] TONSILLECTOMY TUBAL LIGATION Social and Family [...] Interpersonal Safety: Unknown (10/17/2023) Received from [facility], [facility] [place] [facility] [employer] Environment Fear of Current [...] orders for this visit: Giant cell arteritis ([facility]) Mouna Bautista MD, JULIANA, RPVI, FSVS, FACS [...] you for your understanding. documented in this encounterRiverside [facility] Hospital06-05-2024 NoteSubjective Patient ID: Jose David is a 78 y.o. female who presents for Follow-up (GCA. Neck pain with cramping ). HPI She was admitted to [facility] end of August 2023 due [...] testing every 3 months to monitor for toxicity.[facility] 01-02-2024 History of Present illness Narrative* Mahnaz Ochoa MD - 01/02/2024 1:30 PM EDT Images from the original note were not included. [address] [facility] [address] Patient: Jose David Date of : 1945 Encounter Date: 01/02/2024 Patient Care Team: Giovanna Graf APRN-SAMRA as PCP - General (Nurse Practitioner) Allie Hoskins MD as Consulting Physician (Hematology) History of Present Illness: The patient is a 78 y.o. female, a patient seen at [facility] by our service, and is here for [...] the patient was given a referral to [facility] eye Center? The patient states that [...] the ED immediately. Patient initially went to [facility] and was given IV 250 mg Solu-Medrol once. She was then transferred to [facility] for further evaluation. Initial consideration with progressive [...] head and CTA were reportedly done at [facility] and reported to be unremarkable. MRI brain [...] 09/25/2023 Performed by Kristel Reid MD at [facility] TONSILLECTOMY TUBAL LIGATION Current Outpatient Medications Medication [...] extend her arms outwards appropriately in botharms, [id number] testing within normal. There is no dysmetria. [...] reviewed the resident's note. documented in this encounterRiverside [facility] Hospital03-14-2024 History of Present illness Narrative* Malinda Arrington RN - 11/06/2023 3:46 PM EDT Patient is here for consult with Dr. Hoskins. Orders received for CBC, iron studies every 2 months (print out orders). F/u in 4 months. Calendar given to family member and labs orders to be drawn at [facility]. documented in this encounterRiverside [facility] Hospital03-14-2024 History of Present illness Narrative* Allie Hoskins MD - 11/06/2023 3:30 PM EDT Images from the original note were not included. [facility] 11/06/23 Jose David is a 78 y.o. year old female seen today in the oncology clinic. Chief Complaint Patient presents with Follow-up History of Present Illness: Mrs. David is a 78 y.o. female with no significant past medical history presented to hand molder and caster on 09/19/2023 due to blurry vision in left eye, she was told her optic disc was swollen and the patient was given a referral to geothermal heat pump machinist. Over the weekend patients vision in left eye continued to worsen and eventually lost all vision in left eye. Patient was seen by geothermal heat pump machinist 09/22/2023 and time she would decreased vision also in her right eye. It was recommended that she go straight to the emergency department, for concern for giant cell arteritis. Initially she went to [facility] where they gave her Solu-Medrol 250 mg IV 1 dose and then transferred her to [facility]. When she arrived at [facility] she had complete vision loss [...] 09/25/2023 Performed by Kristel Reid MD at [facility] TONSILLECTOMY TUBAL LIGATION No family history on [...] day, repeat CBC and iron study at [facility] in 2 months. Follow-up in 4 months. If patient can not tolerate oral iron supplement, consider IV iron treatment. Thank you. Allie Hoskins MD Please note that portions of this note were generated using voice recognition M*Modal dictation software. Although every effort was made to ensure the accuracy of this automated trace evidence technician, some errors in trace evidence technician may have occurred. CC: Patient Care Team: MERCEDES Portillo as PCP - General (Nurse Practitioner) Allie Hoskins MD as Consulting Physician (Hematology) PCP:Giovanna Graf Referring MD: John Patel DO documented in this encounterMay[facility] Hospital[facility]-14-[facility] Instructions* Patient Instructions* Allie Hoskins MD - 11/06/2023 3:30 PM EDT CBC, iron studies every 2 months (print out orders). F/u in 4 months. documented in this encounterRiverside Methodist Hospital02-23-2024 Miscellaneous Notes* Telephone Encounter - Beronica [...] will have to fill. documented in this encounterOhioHealth [facility] CenterThe[facility]02-23-2024 Telephone encounter Note* Telephone Encounter - Beronica [...] pharmacy - specify address & phone number [facility] Telephone encounter Note* Telephone Encounter - Shadia Hua - 10/17/2023 11:39 AM EST I have attempted to contact this patient by phone with the following results: left detailed messageregarding that since patient has not been seen in clinic PCP or the provider that prescribed medication will have to fill. [employer]02-22-2024 History of Present illness Narrative* Mouna Bautista MD - 10/16/2023 9:10 AM EST Images from the original note were not included. [facility] [address] [facility] [address] Subjective: Patient ID: Jose David is a [...] Vision blurred Stroke-like symptoms Giant cell arteritis ([facility]) Current Outpatient Medications: acetaminophen (TYLENOL EXTRA [...] orders for this visit: Giant cell arteritis ([facility]) Plan Plan: Referral to rheumatology for management of temporal arteritis. Continue steroids in the meanwhile Mouna Bautista MD documented in this encounterRiverside Methodist Hospital02-05-2024 Miscellaneous Notes* Telephone Encounter - Rosa Ovalles - 09/29/2023 12:39 PM EST Please ask the following questions to the new patient that you are schedulin. IS THIS DUE TO AN ACCIDENT? - No 2. IS THIS WORKER'S COMP? - No 3. WHAT INSURANCE? - UNITEDHE[employer]CARE MEDICARE UHC MEDICARE ADVANTAGE [facility] 4. HAVE YOU EVER BEEN SEEN BY A NEUROLOGIST BEFORE? IF YES, WHO AND WHEN? IS THIS A SECOND OPINION? - Patient saw Dr. Byrne at [facility] Hospital Visit 09/23-08/26/2023 5. PATIENT IS SCHEDULED ON/WITH: - 12/05/2023 at 10:[address] Santana documented in this encounterRiverside Methodist Hospital02-05-2024 Telephone encounter Note* Telephone Encounter - [...] OPINION? - Patient saw Dr. Byrne at [facility] Hospital Visit 09/23-08/26/2023 5. PATIENT IS SCHEDULED ON/WITH: - 12/05/2023 at 10:[address] Santana [facility] [id number] Nurse Note* Caryn Briceno RN - 09/26/2023 5:38 PM EST Patient alert and oriented. IV and telemetry discontinued. All discharge instructions have been reviewed and are understood by the patient and daughter. Patient left the unit via wheelchair with all of their belongings and in no distress. Patient discharged home. [facility] [id number] Nurse Note* Caryn Briceno RN - 09/26/2023 5:38 PM EST Patient alert and oriented. IV and telemetry discontinued. All discharge instructions have been reviewed and are understood by the patient and daughter. Patient left the unit via wheelchair with all of their belongings and in no distress. Patient discharged home. documented in this encounterRiverside Methodist Hospital02-02-2024 Hospital course Narrative* Bart Milian MD - 09/26/2023 1:16 PM EST Images from the original note were not included. [facility] Discharge Summary Patient's Name: [...] time of the discharge: peripheral smear, flowcytometry, [facility] Hospital Course Jose Davidson a 78 y.o.female with no significant past medical history, she presented to the hospital with bilateral vision loss. Patient started to notice blurry vision in her left eye 09/19, she was evaluated by Ophthalmology outpatient who referred her to eye center in [place]. Over the weekend her left eye vision significantly deteriorated to a point where she could no longer see. On 09/22, she started developing vision loss in her right eye. She visited the eye center who sent her to ER right away. Patient initially presented to the [facility] ER, she was given Solu-Medrol 250 mg IV once and transferred to [facility] for further workup. Patient was [...] Your Medications These medications were sent to [facility]/pharmacy #[id number] - [place], [place] - [address] [facility] [address] [address] aspirin 81 mg cyanocobalamin 1000 MCG tablet [...] Texture Adult diet John Patel DO [address] [facility] [address] Schedule an appointment as soon as possible for a visit in 1 week(s) Jt Jasso MD [address] [facility] [address] [facility] Rheumatology [facility] [address] Schedule an appointment as soon as possible for a visit in 2 week(s) Joni Pizano MD [address] [facility] [address] [place] [phone] Schedule an appointment as soon as possible for a visit in 2 week(s) Sandy Pizano MD [address] [facility], [address], [address] [facility] [phone] Schedule an appointment as soon as possible for a visit in 1 month(s) Montana Bartlett MD [address] [facility] [phone] Schedule an appointment as soon as possible [...] questions. Electronically signed by: BART MILIAN MD [facility], Department of Internal Medicine 09/26/23 1:16 PM documented in this encounterRiverside Methodist Hospital02-02-2024 Hospital Discharge instructions* Discharge Instructions* Bart Milian MD - 09/26/2023 1:15 PM EST You are started on Aspirin to reduce nursing home risk of vascular complications with you suspected condition (giant cell arteritis) also it will help with preventing thrombosis (clotting) given your Thrombocytosis (elevated platelet count). Please discuss any concerns with your primary care provider, boiler tube blower or professor of business administration Discuss with primary care or boiler tube blower DEXA scan as you are expected to be on steroid medications for prolonged period of time (up to 6 months). Log term steroids can cause Osteoporosis. * Attachments The following attachments cannot be sent through Care Everywhere. * Polymyalgia rheumatica and giant cell arteritis (Guinean) documented in this encounterRiverside Methodist Hospital02-02-2024 History of Present illness Narrative* Kellie Shah MD - 09/26/2023 12:30 PM EST Images from the original note were not included. [facility] Rheumatology PROGRESS NOTE DATE OF ADMISSION 09/23/2023 12:25 AM REASON FOR CONSULTATION: Acute B/L sudden painless vision loss concerning for B/l GCA REFERRING PHYSICIAN: Goran Thmoas MD PCP JOHN PATEL DO ASSESSMENT AND PLAN: B/L vision loss likely 2/2 GCA -Pt's initial symptoms were blur vision in L eye but unfortunately when she presented to [facility] she had complete vision loss in [...] SSA, SSB, scleroderma antibody, Tiki 1, Mejia, [employer]IVATE [employer]AFE, anti dsDNA, anti chromatin were negative. -No [...] past medical history presented to [facility] 09/24 for concerns of vision loss in left eye. Patient was evaluated by hand molder and caster on 09/19/2023 due to blurry vision left [...] concerns of giant cell arteritis. Initially at [facility] she was given Solu-Medrol 250 mg IV 1 dose and then transferred to [facility]. On presenting to [facility], she had complete vision loss in both eyes. She was started on IV Solu-Medrol 1000 mg for 3 days. She underwent bilateral temporal artery biopsy on 09/25/2023. During this admission she had workup done which showed positive SILVIA screen, mildly elevated rheumatoid factor at 21 and elevated anticentromere antibody. Anca ribosomal antibody, SSA, SSB, scleroderma antibody, Tiki 1, Mejia, [employer]IVATE [employer] B[employer]AFE, anti dsDNA, anti chromatin were negative. PAST MEDICAL HISTORY: History reviewed. No pertinent past medical history. PAST SURGICAL HISTORY: Past Surgical History: Procedure Laterality Date APPENDECTOMY BIOPSY ARTERY TEMPORAL Bilateral 09/25/2023 Performed by Kristel Reid MD at [facility] TONSILLECTOMY TUBAL LIGATION ALLERGIES: Allergies Allergen Reactions [...] of the major arterial structures in the [place]. The paranasal sinuses are clear. [...] Sathish Charlton DO on 09/24/2023 4:18 AM Giblert Kline MD have personally reviewed the image(s) [...] of the major arterial structures in the [place]. The paranasal sinuses are clear. [...] dependent >90 >59 ml/min/1.73sq.m Associated attestation - AltoroJt arredondo MD - 09/26/2023 9:24 PM EST I have seen, examined and performed bras[place] parts of this encounter with my resident and I agree with the assessment and plan. * Juaquin Del Cid MD - 09/26/2023 8:04 AM EST Images from the original note were not included. [facility] Vascular Service Progress Note Subjective: Status post [...] from the original note were not included. [facility] Hospitalists Progress Note 09/25/2023 Patient [...] 09/25/2023 Performed by Kristel Reid MD at [facility] TONSILLECTOMY TUBAL LIGATION OBJECTIVE Vital Signs: Temp: [...] presents to the emergency department from her geothermal heat pump machinist's office. She was being evaluated with an geothermal heat pump machinist for possible giant cell arthritis. She said [...] from the original note were not included. [facility] General Neurology Consultation Note Consult Neurology Service: [phone] Primary Team: SAMUEL Chief Complaint and Reason [...] referral to eye center in [facility], on Friday and Friday, vision on the left eye worsened significantly and she lost her vision on the left eye. On Friday 09/22, patient came to [place] to see an eye doctor, whoasked her to go to the ED. patient initially went to [facility], given Solu-Medrol 250 mg IVonce, transferred to [facility] for further workup and ophthalmology evaluation. According to the patient, her right eye vision worsened significantly on Friday, and she lost her vision on both eyes. Patient had no past medical history, she has not taking any scheduled medications, patient lives with her daughter, she is driving and working. Walking with no assistive devices. Upon initial assessment in [facility], patient had complete vision loss [...] CTH, head and neck CTA done at [facility], reportedly unremarkable Impression: Binocular vision loss concerning [...] Internal medicine PGY 3 Staffed with: Dr. Piznao This patient is being followed by the Neurology Resident service. Contact attending directly during these hours: Friday to 7:30-8:30 A.M. to Friday 12-1:00 p.m. Primary Neurology service: [phone] Consult neurology service: [phone] Resident Stroke Service: [phone] If the patient belongs to the Stroke [...] not included. [facility] 09/24/2023 Patient Name: [...] IgG 992 635 - 1,741 mg/dL Free [place] Chains 2.91 (H) 0.33 - 1.94 [...] of the major arterial structures in the [place]. The paranasal sinuses are clear. [...] of the major arterial structures in the [place]. The paranasal sinuses are clear. [...] from the original note were not included. [facility] Neurology General Neurology Consultation Note Consult Neurology Service: [phone] Primary Team: SAMUEL Chief Complaint and Reason [...] she was seen by an eye doctor ont day, the patient was told that her optic disc is swollen, and the patient was given referral to eye center in [facility], on Friday and Friday, vision on the left eye worsened significantly and she lost her vision on the left eye. On Friday 09/22, patient came to [place] to see an eye doctor, whoasked her to go to the ED. patient initially went to [facility], given Solu-Medrol 250 mg IVonce, transferred to [facility] for further workup and ophthalmology evaluation. According to the patient, her right eye vision worsened significantly on Friday, and she lost her vision on both eyes. Patient had no past medical history, she has not taking any scheduled medications, patient lives with her daughter, she is driving and working. Walking with no assistive devices. Upon initial assessment in [facility], patient had complete vision loss [...] CTH, head and neck CTA done at [facility], reportedly unremarkable Impression: Binocular vision loss concerning [...] to Friday 12-1:00 p.m. Primary Neurology service: [phone] Consult neurology service: [phone] Resident Stroke Service: [phone] If the patient belongs to the Stroke [...] from the original note were not included. [facility] Hospitalists Progress Note 09/23/2023 Patient [...] can correct any mistakes. documented in this encounterOhio[facility]24 Progress note* Discharge Planning Note - Sophia [...] - Sophia Rajan RN 09/26/23 11:05 AM [facility] Miscellaneous Notes* Discharge Planning Note - Sophia [...] the bedside 7. Instruct patient/ patient customer loyalty representative about use of safety devices 8. Include patient/ patient customer loyalty representative in decisions related to safety Note: [...] be free from fall Description: Interventions: 1. [place] to environment 2. Hourly rounds addressing the [...] footwear 11. Teach patient and patient customer loyalty representative to maintain environment for safety and [...] INTERVENTIONS: 1. Encourage patient or legal customer loyalty representative to report early pain and ask [...] policy 9. Teach patient or legal customer loyalty representative interventions for comforting Outcome: Progressing Note: [...] the bedside 7. Instruct patient/ patient customer loyalty representative about use of safety devices 8. Include patient/ patient customer loyalty representative in decisions related to safety Outcome: [...] technique 7. Identify and instruct patient/patient customer loyalty representative in use of appropriate isolation precautionsfor identified infection/symptoms 8. Provide and discuss with patient/patient customer loyalty representative on educational MDRO sheet 9. Encourage and monitor nutritional status daily and consult production sound mixer if indicated 10. Implement neutropenic guidelines as needed 11. Review exposure to history of communicable disease and recent travel history on admission 12. Encourage annual influenza vaccine 13. Encourage pneumonia vaccine Outcome: Progressing Note: Evaluation of progress towards goal: Patient free from signs of infection. Afebrile. Continueto Monitor. Problem: Knowledge Deficit Goal: Patient/patient customer loyalty representative demonstrates understanding of disease process, treatment [...] of 0 - 24 or indicated by [facility] Assessment Goal: Patient should be free from fall Description: Interventions: 1. [place] to environment 2. Hourly rounds addressing the [...] footwear 11. Teach patient and patient customer loyalty representative to maintain environment for safety and engage in all aspects of fall prevention program Outcome: Progressing Note: Evaluation of progress towards goal: Patient free from falls and injury. Continue to monitor. Problem: Moderate - High Risk Fall Score Description: Clifford Fall Score of =/> 25 or indicated by [facility] Assessment Goal: Patient should be free from fall Description: Interventions: 1. [place] to environment 2. Hourly rounds addressing the [...] footwear 11. Teach patient and patient customer loyalty representative to maintain environment for safety and [...] walker) within reach 19. Request patient customer loyalty representative bring adaptive equipment/mobility aids from home or obtain and provide as needed 20. Consult pharmacy regarding effects of med's affecting mobility, cognition, and alternatives 21. Obtain physician order for PT if risk factors associated with mobility are present 22. Obtain physician order for OT as appropriate 23. Utilize diversional activities 24. Educate patient and patient customer loyalty representative how to maintain a safe environment during visitationtimes (notify nurse prior to leaving bedside) 25. Consider appropriateness of medical or non-medical psychotherapist 26. Set up voiding schedule as appropriate [...] days ago. She was evaluated by her geothermal heat pump machinist who felt that vision loss was secondary [...] hemodynamically stable. Condition: stable Kristel Reid MD [facility] * Plan of Care - Jc Pelayo RN - 09/24/2023 11:51 PM EST Problem: Low Risk Fall Score Description: Clifford Fall Score of 0 - 24 or indicated by [facility] Assessment Goal: Patient should be free from fall Description: Interventions: 1. [place] to environment 2. Hourly rounds addressing the [...] footwear 11. Teach patient and patient customer loyalty representative to maintain environment for safety and [...] INTERVENTIONS: 1. Encourage patient or legal customer loyalty representative to report early pain and ask [...] policy 9. Teach patient or legal customer loyalty representative interventions for comforting Outcome: Progressing Note: [...] the bedside 7. Instruct patient/ patient customer loyalty representative about use of safety devices 8. Include patient/ patient customer loyalty representative in decisions related to safety Outcome: [...] technique 7. Identify and instruct patient/patient customer loyalty representative in use of appropriate isolation precautionsfor identified infection/symptoms 8. Provide and discuss with patient/patient customer loyalty representative on educational MDRO sheet 9. Encourage and monitor nutritional status daily and consult production sound mixer if indicated 10. Implement neutropenic guidelines as needed 11. Review exposure to history of communicable disease and recent travel history on admission 12. Encourage annual influenza vaccine 13. Encourage pneumonia vaccine Outcome: Progressing Note: Evaluation of progress towards goal: Patient afebrile, Monitoring labs. Problem: Knowledge Deficit Goal: Patient/patient customer loyalty representative demonstrates understanding of disease process, treatment [...] INTERVENTIONS: 1. Encourage patient or legal customer loyalty representative to report early pain and ask [...] policy 9. Teach patient or legal customer loyalty representative interventions for comforting Outcome: Progressing Note: [...] the bedside 7. Instruct patient/ patient customer loyalty representative about use of safety devices 8. Include patient/ patient customer loyalty representative in decisions related to safety Outcome: [...] technique 7. Identify and instruct patient/patient customer loyalty representative in use of appropriate isolation precautionsfor identified infection/symptoms 8. Provide and discuss with patient/patient customer loyalty representative on educational MDRO sheet 9. Encourage and monitor nutritional status daily and consult production sound mixer if indicated 10. Implement neutropenic guidelines as [...] INTERVENTIONS: 1. Encourage patient or legal customer loyalty representative to report early pain and ask [...] policy 9. Teach patient or legal customer loyalty representative interventions for comforting Outcome: Progressing Note: [...] the bedside 7. Instruct patient/ patient customer loyalty representative about use of safety devices 8. Include patient/ patient customer loyalty representative in decisions related to safety Outcome: [...] technique 7. Identify and instruct patient/patient customer loyalty representative in use of appropriate isolation precautionsfor identified infection/symptoms 8. Provide and discuss with patient/patient customer loyalty representative on educational MDRO sheet 9. Encourage and monitor nutritional status daily and consult production sound mixer if indicated 10. Implement neutropenic guidelines as needed 11. Review exposure to history of communicable disease and recent travel history on admission 12. Encourage annual influenza vaccine 13. Encourage pneumonia vaccine Outcome: Progressing Note: Evaluation of progress towards goal: Patient receiving antibiotics as ordered. Continue to monitor. Problem: Knowledge Deficit Goal: Patient/patient customer loyalty representative demonstrates understanding of disease process, treatment [...] of 0 - 24 or indicated by [facility] Assessment Goal: Patient should be free from fall Description: Interventions: 1. [place] to environment 2. Hourly rounds addressing the [...] footwear 11. Teach patient and patient customer loyalty representative to maintain environment for safety and [...] the bedside 7. Instruct patient/ patient customer loyalty representative about use of safety devices 8. Include patient/ patient customer loyalty representative in decisions related to safety Outcome: [...] technique 7. Identify and instruct patient/patient customer loyalty representative in use of appropriate isolation precautionsfor identified infection/symptoms 8. Provide and discuss with patient/patient customer loyalty representative on educational MDRO sheet 9. Encourage and monitor nutritional status daily and consult production sound mixer if indicated 10. Implement neutropenic guidelines as needed 11. Review exposure to history of communicable disease and recent travel history on admission 12. Encourage annual influenza vaccine 13. Encourage pneumonia vaccine Outcome: Progressing Note: Evaluation of progress towards goal: Patient has no signs and symptoms of infection. Problem: Low Risk Fall Score Description: Clifford Fall Score of 0 - 24 or indicated by [facility] Assessment Goal: Patient should be free from fall Description: Interventions: 1. [place] to environment 2. Hourly rounds addressing the [...] footwear 11. Teach patient and patient customer loyalty representative to maintain environment for safety and engage in all aspects of fall prevention program Outcome: Progressing Note: Evaluation of progress towards goal: Patient remained free from falls. Will continue to utilized fall prevention measures. [facility] Plan of care note * Plan [...] the bedside 7. Instruct patient/ patient customer loyalty representative about use of safety devices 8. Include patient/ patient customer loyalty representative in decisions related to safety Note: Evaluation of progress towards goal: No reports of injury during shift. Safety measures in place [facility] [employer]02-01-2024 Plan of care note* Plan of Care - Jc Pelayo RN - 09/25/2023 11:52 PM EST Problem: Low Risk Fall Score Description: Clifford Fall Score of 0 - 24 or indicated by [facility] Assessment Goal: Patient should be free from fall Description: Interventions: 1. [place] to environment 2. Hourly rounds addressing the [...] footwear 11. Teach patient and patient customer loyalty representative to maintain environment for safety and engage in all aspects of fall prevention program Outcome: Progressing Note: Evaluation of progress towards goal: Patient remained free from falls. Will continue to utilized fall prevention measures. [employer]02-01-2024 Progress note* Discharge Planning Note - Sophia [...] - Sophia Rajan RN 09/25/23 1:09 PM [employer]02-01-2024 Plan of care note* Plan of Care - Sabas Snow RN - 09/25/2023 12:35 PM EST Problem: Pain Goal: Patient goal is pain score less than 4, able to rest, and participant in treatment plan as appropriate Description: INTERVENTIONS: 1. Encourage patient or legal customer loyalty representative to report early pain and ask [...] policy 9. Teach patient or legal customer loyalty representative interventions for comforting Outcome: Progressing Note: [...] the bedside 7. Instruct patient/ patient customer loyalty representative about use of safety devices 8. Include patient/ patient customer loyalty representative in decisions related to safety Outcome: [...] technique 7. Identify and instruct patient/patient customer loyalty representative in use of appropriate isolation precautionsfor identified infection/symptoms 8. Provide and discuss with patient/patient customer loyalty representative on educational MDRO sheet 9. Encourage and monitor nutritional status daily and consult production sound mixer if indicated 10. Implement neutropenic guidelines as needed 11. Review exposure to history of communicable disease and recent travel history on admission 12. Encourage annual influenza vaccine 13. Encourage pneumonia vaccine Outcome: Progressing Note: Evaluation of progress towards goal: Patient free from signs of infection. Afebrile. Continueto Monitor. Problem: Knowledge Deficit Goal: Patient/patient customer loyalty representative demonstrates understanding of disease process, treatment [...] of 0 - 24 or indicated by [facility] Assessment Goal: Patient should be free from fall Description: Interventions: 1. [place] to environment 2. Hourly rounds addressing the [...] footwear 11. Teach patient and patient customer loyalty representative to maintain environment for safety and engage in all aspects of fall prevention program Outcome: Progressing Note: Evaluation of progress towards goal: Patient free from falls and injury. Continue to monitor. Problem: Moderate - High Risk Fall Score Description: Clifford Fall Score of =/> 25 or indicated by [facility] Assessment Goal: Patient should be free from fall Description: Interventions: 1. [place] to environment 2. Hourly rounds addressing the [...] footwear 11. Teach patient and patient customer loyalty representative to maintain environment for safety and [...] walker) within reach 19. Request patient customer loyalty representative bring adaptive equipment/mobility aids from home or obtain and provide as needed 20. Consult pharmacy regarding effects of med's affecting mobility, cognition, and alternatives 21. Obtain physician order for PT if risk factors associated with mobility are present 22. Obtain physician order for OT as appropriate 23. Utilize diversional activities 24. Educate patient and patient customer loyalty representative how to maintain a safe environment during visitationtimes (notify nurse prior to leaving bedside) 25. Consider appropriateness of medical or non-medical psychotherapist 26. Set up voiding schedule as appropriate (every 2 hours) Outcome: Progressing Note: Evaluation of progress towards goal: Patient free from falls and injury. Continue to monitor. [employer]02-01-2024 Consult note* Kellie Shah MD - 09/25/2023 8:47 AM ESTAssociated Order(s): IP CONSULT TO RHEUMATOLOGY Images from the original note were not included. 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 -No concern for RA or scleroderma given lack of clinical symptoms Discussed with attending Dr. Romero Shah PGY-5, Rheumatology CHIEF COMPLAINT: Visual loss HISTORY OF PRESENT ILLNESS: Jose David is a 78 y.o. White or female who presents with no significant past medical history presented to [facility] 09/24 for concerns of vision loss in left eye. Patient was evaluated by hand molder and caster on 09/19/2023 due to blurry vision left [...] concerns of giant cell arteritis. Initially at [facility] she was given Solu-Medrol 250 mg IV 1 dose and then transferred to [facility]. On presenting to [facility], she had complete vision loss in both eyes. She was started on IV Solu-Medrol 1000 mg for 3 days. She underwent bilateral temporal artery biopsy on 09/25/2023. During this admission she had workup done which showed positive SILVIA screen, mildly elevated rheumatoid factor at 21 and elevated anticentromere antibody. Anca ribosomal antibody, SSA, SSB, scleroderma antibody, Tiki 1, Mejia, [employer], anti dsDNA, anti chromatin were negative. PAST [...] of the major arterial structures in the [place]. The paranasal sinuses are clear. [...] of the major arterial structures in [place]. The paranasal sinuses are clear. [...] IgG 992 635 - 1,741 mg/dL Free [place] 2.91 (H) 0.33 - 1.94 [...] I agree with the assessment and plan. [facility]02-01-[facility] Consult note* Kellie Shah MD - 09/25/2023 8:47 AM ESTAssociated Order(s): IP CONSULT TO RHEUMATOLOGY Images from the original note were not included. 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 -No concern for RA or scleroderma given lack of clinical symptoms Discussed with attending Dr. Romero Shah PGY-5, Rheumatology CHIEF COMPLAINT: Visual loss HISTORY OF PRESENT ILLNESS: Jose David is a 78 y.o. White or female who presents with no significant past medical history presented to [facility] 09/24 for concerns of vision loss in left eye. Patient was evaluated by hand molder and caster on 09/19/2023 due to blurry vision left [...] concerns of giant cell arteritis. Initially at [facility] she was given Solu-Medrol 250 mg IV 1 dose and then transferred to [facility]. On presenting to [facility], she had complete vision loss in both eyes. She was started on IV Solu-Medrol 1000 mg for 3 days. She underwent bilateral temporal artery biopsy on 09/25/2023. During this admission she had workup done which showed positive SILVIA screen, mildly elevated rheumatoid factor at 21 and elevated anticentromere antibody. Anca ribosomal antibody, SSA, SSB, scleroderma antibody, Tiki 1, Mejia, [employer], anti dsDNA, anti chromatin were negative. PAST [...] of the major arterial structures in [place]. The paranasal sinuses are clear. [...] of the major arterial structures in [place]. The paranasal sinuses are clear. [...] IgG 992 635 - 1,741 mg/dL Free [place] 2.91 (H) 0.33 - 1.94 [...] the assessment and plan. * Faisal Rascon APRN-PROPERTY ASSISTANT - 09/24/2023 10:37 AM EST Images from the original note were not included. Vascular History and Physical Examination/Consultation Note Reason for Consultation Bilateral temporal artery biopsy, concern for giant cell arteritis History and Present Illness Jose David is a 78 y.o. White or female who presents to the emergency department from her geothermal heat pump machinist's office. She was being evaluated with an geothermal heat pump machinist for possible giant cell arthritis. She said [...] questions or concerns regarding management. ALANNA Guzman [facility] [place] Office/After hours: [phone] ALANNA Guzman 09/24/23 1521 * Bayron Denise - 09/23/2023 4:37 PM ESTAssociated Order(s): IP CONSULT TO SPIRITUAL CARE Summary: Spiritual Care Consult for Advance Directive Assistance Spiritual Care Consult for Advance Directive Assistance Advance Directive: Senior Storage Administrator provided patient with education on the need for advance directives and a copy of the [place] Advance Directive packet. Senior Storage Administrator assisted patient in completing the advance directives. Patient completed and signed a healthcare power of staff attorney. Patient was given the original and a copy. One copy placed in patient's chart. A retirement sales consultant is available 17/03 to offer spiritual and emotional support and may be reached through the [facility] clipper operator at [phone]. * Montana aBrtlett MD - 09/23/2023 12:15 PM ESTAssociated Order(s): IP CONSULT TO OPHTHALMOLOGY Date: Reason for consult: I have been asked to evaluate the eyes of this 78-year-old lady who noticed sudden onset of foggy in the left eye 4 days ago this rapidly progressed to complete loss of vision in the left eye.. She saw an hand molder and caster who indicated to her that she had [...] the patient was given a referral to geothermal heat pump machinist. Over the weekend patients vision in left eye continued to worsen and eventually lost all vision in left eye. Patient was seen by geothermal heat pump machinist 09/22/2023 and time she would decreased vision also in her right eye. It was recommended that she go straight to the emergency department, for concern for giant cell arteritis. Initially she went to [facility] where they gave her Solu-Medrol 250 mg IV 1 dose and then transferred her to [facility]. When she arrived at [facility] she had complete vision loss [...] bedside. States she was doing well until Viral when started having L vision loss. She denies any pain, NAGY, SOB, fever or chills. She denies any swelling in her legs are pain. 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 She takes no regular medication, she has [...] you for the consultation. Caitie Wilder PA-C [facility] [address] [place] [address] September 23, 2023, 10:20 AM Please note that portions of this note were generated using voice recognition [employer] dictation software. Although every effort was made to ensure the accuracy of this automated trace evidence technician, some errors in trace evidence technician may have occurred. I have personally performed [...] need to start aspirin Joni PIZANO M.D. [facility] Day time contact: After hours answering service: [phone] [place] [address] * Carlitos Caraballo MD - 09/23/2023 12:53 AM ESTAssociated Order(s): IP CONSULT TO NEUROLOGY Images from the original note were not included. [facility] General Neurology Consultation Note Consult Neurology Service: [phone] Primary Team: [facility] Chief Complaint and Reason for Consultation: [...] referral to eye center in [facility], on Friday and Friday, vision on the left eye worsened significantly and she lost her vision on the left eye. On Friday 09/22, patient came to [place] to see an eye doctor, whoasked her to go to the ED. patient initially went to [facility], given Solu-Medrol 250 mg IVonce, transferred to [facility] for further workup and ophthalmology evaluation. According to the patient, her right eye vision worsened significantly on Friday, and she lost her vision on both eyes. Patient had no past medical history, she has not taking any scheduled medications, patient lives with her daughter, she is driving and working. Walking with no assistive devices. Upon initial assessment in [facility], patient had complete vision loss [...] Reportedly ESR and CRP were elevated at [facility] Imaging: CTH, head and neck CTA done at [facility], reportedly unremarkable Other Testing: None Assessment: Jose [...] follow Carlitos Caraballo MD PGY-3, Neurology Resident [facility] Staffed with: (Dr. Byrne) This patient is being followed by the Neurology Resident service. Contact attending directly during these hours: Friday to 7:30-8:30 A.M. to Friday 12-1:00 p.m. Primary Neurology service: [phone] Consult neurology service: [phone] Resident Stroke Service: [phone] If the patient belongs to the Stroke [...] Sandy Pizano MD, PhD [facility]* Op Note - Kristel Reid [...] days ago. She was evaluated by her geothermal heat pump machinist who felt that vision loss was secondary [...] hemodynamically stable. Condition: stable Kristel Reid MD [facility]02-01[facility] Attending History and physical note* Kristel Reid MD - 09/25/2023 7:30 AM EST HISTORY AND PHYSICAL INTERVAL NOTE: Jose M Frankie 1945 [id number] H&P reviewed. The patient was examined and there are no changes to the H&P. Kristel Reid MD Source Note - Faisal Rascon APRN-[facility] - 09/24/2023 10:37 AM EST Images from the original note were not included. Vascular History and Physical Examination/Consultation Note Reason for Consultation Bilateral temporal artery biopsy, concern for giant cell arteritis History and Present Illness Jose David is a 78 y.o. White or female who presents to the emergency department from her geothermal heat pump machinist's office. She was being evaluated with an geothermal heat pump machinist for possible giant cell arthritis. She said [...] questions or concerns regarding management. ALANNA Guzman [facility] [place] Office/After hours: [phone] ALANNA Guzman 09/24/23 1521 ALANNA Guzman 09/25/23 0730 [employer]02-01-2024 History and physical note* Kristel Reid MD - 09/25/2023 7:30 AM EST HISTORY AND PHYSICAL INTERVAL NOTE: Jose David 1945 [id number] H&P reviewed. The patient was examined and [...] presents to the emergency department from her geothermal heat pump machinist's office. She was being evaluated with an geothermal heat pump machinist for possible giant cell arthritis. She said [...] questions or concerns regarding management. ALANNA Guzman [facility] [place] Office/After hours: [phone] ALANNA Guzman 09/24/23 1521 ALANNA Guzman 09/25/23 0730 * Nandini Walters MD - 09/23/2023 12:34 AM EST Images from the original note were not included. [facility] [place] [facility] History and Physical 09/23/2023 Patient Name: [...] on ophthalmology recommendation, patient saw Ophthalmology in [place] today evaluated for possible giant cell arthritis, [...] pedis pulses present and equal bilaterally Skin: [place], warm, dry; no rashes or lesions Neurologic: [...] Electronically signed by: MD Nandini PAREDES M.D. [facility] This note was completed using a voice trace evidence technician system. Every effort was made to ensure accuracy. However, inadvertent computerized trace evidence technician errors may be present. documented in this encounterProMedica Health [id number] Plan of care note * Plan of Care - Jc Pelayo RN - 09/24/2023 11:51 PM EST Problem: Low Risk Fall Score Description: Clifford Fall Score of 0 - 24 or indicated by [facility] Assessment Goal: Patient should be free from fall Description: Interventions: 1. [place] to environment 2. Hourly rounds addressing the [...] footwear 11. Teach patient and patient customer loyalty representative to maintain environment for safety and engage in all aspects of fall prevention program Outcome: Progressing Note: Evaluation of progress towards goal: Patient remained free from falls. Will continue to utilized fall prevention measures. [facility]01-[facility] Plan of care note* Plan of Care - Faiza Valverde RN - 09/24/2023 11:08 AM EST Problem: Pain Goal: Patient goal is pain score less than 4, able to rest, and participant in treatment plan as appropriate Description: INTERVENTIONS: 1. Encourage patient or legal customer loyalty representative to report early pain and ask [...] policy 9. Teach patient or legal customer loyalty representative interventions for comforting Outcome: Progressing Note: [...] the bedside 7. Instruct patient/ patient customer loyalty representative about use of safety devices 8. Include patient/ patient customer loyalty representative in decisions related to safety Outcome: [...] technique 7. Identify and instruct patient/patient customer loyalty representative in use of appropriate isolation precautionsfor identified infection/symptoms 8. Provide and discuss with patient/patient customer loyalty representative on educational MDRO sheet 9. Encourage and monitor nutritional status daily and consult production sound mixer if indicated 10. Implement neutropenic guidelines as needed 11. Review exposure to history of communicable disease and recent travel history on admission 12. Encourage annual influenza vaccine 13. Encourage pneumonia vaccine Outcome: Progressing Note: Evaluation of progress towards goal: Patient afebrile, Monitoring labs. Problem: Knowledge Deficit Goal: Patient/patient customer loyalty representative demonstrates understanding of disease process, treatment plan,medications, and discharge instructions Description: INTERVENTIONS 1. Complete learning assessment and assess knowledge base 2. Provide teaching at level of understanding 3. Provide teaching via preferred learning method(s) Outcome: Progressing Note: Evaluation of progress towards goal: POC reviewed with patient, verbalizes understanding [facility] [id number] Progress note* Discharge Planning Note - Sophia [...] - Sophia Rajan RN 09/24/23 10:57 AM [facility] Consult note* Faisal Rascon APRN-PROPERTY ASSISTANT - 09/24/2023 10:37 AM EST Images from the original note were not included. Vascular History and Physical Examination/Consultation Note Reason for Consultation Bilateral temporal artery biopsy, concern for giant cell arteritis History and Present Illness Jose David is a 78 y.o. White or female who presents to the emergency department from her geothermal heat pump machinist's office. She was being evaluated with an geothermal heat pump machinist for possible giant cell arthritis. She said [...] questions or concerns regarding management. ALANNA Guzman [facility] [place] Office/After hours: [phone] ALANNA Guzman 09/24/23 1521 [employer] [facility] Work Phone: [phone] Plan of care note* Plan of Care - Mago Moreau RN - 09/23/2023 9:58 PM EST Problem: Pain Goal: Patient goal is pain score less than 4, able to rest, and participant in treatment plan as appropriate Description: INTERVENTIONS: 1. Encourage patient or legal customer loyalty representative to report early pain and ask [...] policy 9. Teach patient or legal customer loyalty representative interventions for comforting Outcome: Progressing Note: [...] the bedside 7. Instruct patient/ patient customer loyalty representative about use of safety devices 8. Include patient/ patient customer loyalty representative in decisions related to safety Outcome: [...] technique 7. Identify and instruct patient/patient customer loyalty representative in use of appropriate isolation precautionsfor identified infection/symptoms 8. Provide and discuss with patient/patient customer loyalty representative on educational MDRO sheet 9. Encourage and monitor nutritional status daily and consult production sound mixer if indicated 10. Implement neutropenic guidelines as needed 11. Review exposure to history of communicable disease and recent travel history on admission 12. Encourage annual influenza vaccine 13. Encourage pneumonia vaccine Outcome: Progressing Note: Evaluation of progress towards goal: monitor for signs and symptoms of infection [facility] Plan of care note* Plan of Care - Sabas Snow RN - 09/23/2023 4:41 PM EST Problem: Pain Goal: Patient goal is pain score less than 4, able to rest, and participant in treatment plan as appropriate Description: INTERVENTIONS: 1. Encourage patient or legal customer loyalty representative to report early pain and ask [...] policy 9. Teach patient or legal customer loyalty representative interventions for comforting Outcome: Progressing Note: [...] the bedside 7. Instruct patient/ patient customer loyalty representative about use of safety devices 8. Include patient/ patient customer loyalty representative in decisions related to safety Outcome: [...] technique 7. Identify and instruct patient/patient customer loyalty representative in use of appropriate isolation precautionsfor identified infection/symptoms 8. Provide and discuss with patient/patient customer loyalty representative on educational MDRO sheet 9. Encourage and monitor nutritional status daily and consult production sound mixer if indicated 10. Implement neutropenic guidelines as needed 11. Review exposure to history of communicable disease and recent travel history on admission 12. Encourage annual influenza vaccine 13. Encourage pneumonia vaccine Outcome: Progressing Note: Evaluation of progress towards goal: Patient receiving antibiotics as ordered. Continue to monitor. Problem: Knowledge Deficit Goal: Patient/patient customer loyalty representative demonstrates understanding of disease process, treatment [...] of 0 - 24 or indicated by [facility] Assessment Goal: Patient should be free from fall Description: Interventions: 1. [place] to environment 2. Hourly rounds addressing the [...] footwear 11. Teach patient and patient customer loyalty representative to maintain environment for safety and engage in all aspects of fall prevention program Outcome: Progressing Note: Evaluation of progress towards goal: Patient free from falls and injury. Continue to monitor. [employer]01-30-2024 Consult note* Bayron Denise - 09/23/2023 4:37 PM ESTAssociated Order(s): IP CONSULT TO SPIRITUAL CARE Summary: Spiritual Care Consult for Advance Directive Assistance Spiritual Care Consult for Advance Directive Assistance Advance Directive: Senior Storage Administrator provided patient with education on the need for advance directives and a copy of the [place] Advance Directive packet. Senior Storage Administrator assisted patient in completing the advance directives. Patient completed and signed a healthcare power of staff attorney. Patient was given the original and a copy. One copy placed in patient's chart. A retirement sales consultant is available 17/03 to offer spiritual and emotional support and may be reached through the [facility] clipper operator at [phone]. [employer]01-30-2024 Progress note* Discharge Planning Note - LIANE [...] care - LIANE KEN 09/23/23 2:07 PM [employer]01-30-2024 Progress note* Situational Awareness - ALANNA Rosario - 09/23/2023 12:58 PM EST Consulted for MAUREEN to rule out embolic process in setting of sudden vision loss. Discussed with neurology, recommend surface echo with bubble study prior to consideration of MAUREEN. If TTE unremarkable and continued concerns, please let us know. ALANNA Rosario 09/23/23 1300 [employer] Work Phone: [phone] Consult note* Montana Bartlett MD - 09/23/2023 12:15 PM ESTAssociated Order(s): IP CONSULT TO OPHTHALMOLOGY Date: Reason for consult: I have been asked to evaluate the eyes of this 78-year-old lady who noticed sudden onset of foggy in the left eye 4 days ago this rapidly progressed to complete loss of vision in the left eye.. She saw an hand molder and caster who indicated to her that she had [...] is indicated. Thanks Montana Bartlett MD, FACS. [facility] [facility] Work Phone: 1([phone]) 164-598301-30-2024 Consult note* Joni Pizano MD - 09/23/2023 [...] the patient was given a referral to geothermal heat pump machinist. Over the weekend patients vision in left eye continued to worsen and eventually lost all vision in left eye. Patient was seen by geothermal heat pump machinist 09/22/2023 and time she would decreased vision also in her right eye. It was recommended that she go straight to the emergency department, for concern for giant cell arteritis. Initially she went to [facility] where they gave her Solu-Medrol 250 mg IV 1 dose and then transferred her to [facility]. 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 She takes no regular medication, she has [...] you for the consultation. Caitie Wilder PA-C [facility] [address] [place] [address] September 23, 2023, 10:20 AM Please note that portions of this note were generated using voice recognition [employer] dictation software. Although every effort was made to ensure the accuracy of this automated trace evidence technician, some errors in trace evidence technician may have occurred. I have personally performed [...] need to start aspirin Joni PIZANO M.D. [facility] Day time contact: After hours answering service: [phone] [place] [address] [employer] Work Phone: 1(281) 629-957301-30-2024 Plan of care note* Plan of Care [...] the bedside 7. Instruct patient/ patient customer loyalty representative about use of safety devices 8. Include patient/ patient customer loyalty representative in decisions related to safety Outcome: [...] technique 7. Identify and instruct patient/patient customer loyalty representative in use of appropriate isolation precautionsfor identified infection/symptoms 8. Provide and discuss with patient/patient customer loyalty representative on educational MDRO sheet 9. Encourage and monitor nutritional status daily and consult production sound mixer if indicated 10. Implement neutropenic guidelines as needed 11. Review exposure to history of communicable disease and recent travel history on admission 12. Encourage annual influenza vaccine 13. Encourage pneumonia vaccine Outcome: Progressing Note: Evaluation of progress towards goal: Patient has no signs and symptoms of infection. Problem: Low Risk Fall Score Description: Clifford Fall Score of 0 - 24 or indicated by [facility] Assessment Goal: Patient should be free from fall Description: Interventions: 1. [place] to environment 2. Hourly rounds addressing the [...] footwear 11. Teach patient and patient customer loyalty representative to maintain environment for safety and engage in all aspects of fall prevention program Outcome: Progressing Note: Evaluation of progress towards goal: Patient remained free from falls. Will continue to utilized fall prevention measures. [facility] [id number] Consult note* Carlitos Caraballo MD - 09/23/2023 12:53 AM ESTAssociated Order(s): IP CONSULT TO NEUROLOGY Images from the original note were not included. [facility] Neu[facility] General Neurology Consultation Note Consult Neurology Service: [phone] Primary Team: [facility] Chief Complaint and Reason for Consultation: [...] referral to eye center in [facility], on Friday and Friday, vision on the left eye worsened significantly and she lost her vision on the left eye. On Friday 09/22, patient came to [place] to see an eye doctor, whoasked her to go to the ED. patient initially went to [facility], given Solu-Medrol 250 mg IVonce, transferred to [facility] for further workup and ophthalmology evaluation. According to the patient, her right eye vision worsened significantly on Friday, and she lost her vision on both eyes. Patient had no past medical history, she has not taking any scheduled medications, patient lives with her daughter, she is driving and working. Walking with no assistive devices. Upon initial assessment in [facility], patient had complete vision loss [...] Reportedly ESR and CRP were elevated at [facility] Imaging: CTH, head and neck CTA done at [facility], reportedly unremarkable Other Testing: None Assessment: Jose [...] follow Carlitos Caraballo MD PGY-3, Neurology Resident [facility] Staffed with: (Dr. Byrne) This patient is being followed by the Neurology Resident service. Contact attending directly during these hours: Friday to 7:30-8:30 A.M. to Friday 12-1:00 p.m. Primary Neurology service: [phone] Consult neurology service: [phone] Resident Stroke Service: [phone] If the patient belongs to the Stroke [...] follow and update Sandy Pizano MD, PhD [employer] Work Phone: 1(762) 321-615001-30-2024 History and physical note* Nandini Walters MD - 09/23/2023 12:34 AM EST Images from the original note were not included. [facility] History and Physical 09/23/2023 [...] on ophthalmology recommendation, patient saw Ophthalmology in [place] today evaluated for possible giant cell arthritis, [...] pedis pulses present and equal bilaterally Skin: [place], warm, dry; no rashes or lesions Neurologic: [...] Electronically signed by: MD Nandini PAREDES M.D. [facility] This note was completed using a voice trace evidence technician system. Every effort was made to ensure accuracy. However, inadvertent computerized trace evidence technician errors may be present. [facility] System[facility]* Diagnosis Onset Date Resolution Status GERD (gastroesophageal reflux disease) acute Hospital discharge follow-up acute Temporal arteritis acute Vision loss, bilateral acute [facility] Work Phone: Evaluation note* Diagnosis Onset Date Resolution Status GERD (gastroesophageal reflux disease) acute History of cataract extraction with lens replacement acute Hospital discharge follow-up acute Temporal arteritis acute Vision loss, bilateral acute Acute effusion of left ear a cute Eustachian tube dysfunction acute [facility] Work Phone: Evaluation noteNo assessment information available [facility] Work Phone: Evaluation note* Diagnosis Giant cell arteritis (CMS-HCC)- Primary Giant cell arteritis [facility]* Diagnosis Giant cell arteritis (CMS-HCC)- Primary Giant cell arteritis documented in this encounter [facility]* Diagnosis Vision blurred- Primary Other specified visual disturbances B12 deficiency Thrombocytosis Essential thrombocythemia Vision blurred Other specified visual disturbances Temporal arteritis (CMS-HCC) Giant cell arteritis Stroke-like symptoms documented in this encounter [facility]* Diagnosis Giant cell arteritis (CMS-HCC)- Primary Giant cell arteritis documented [facility] encounter [facility]* Diagnosis Normocytic anemia- Primary Unspecified anemia Thrombocytosis Essential thrombocythemia Anemia, unspecified type documented in this encounter [facility] Diagnosis Giant cell arteritis (CMS-HCC)- Primary Giant cell arteritis Stroke-like symptoms Vision blurred Other specified visual disturbances Anemia, unspecified type documented in this encounter [facility]* Diagnosis Normocytic anemia- Primary Unspecified anemia Thrombocytosis Essential thrombocythemia documented in this encounter [facility] Diagnosis Normocytic anemia- Primary Unspecified anemia Thrombocytosis Essential thrombocythemia Anemia, unspecified type Iron deficiency Disorders of iron metabolism Giant cell arteritis (CMS-HCC) Giant cell arteritis Vision blurred Other specified visual disturbances documented in this encounter [facility]* Diagnosis Onset Date Resolution Status Admit Date Left otitis media acute uar 2024 2:27pm Muscle spasm acute September 2:27pm Neck pain acute October 13, 2024 2:27pm [facility] Work Phone: InstructionsNot on filedocumented in this encounter [facility]ructionsNot on filedocumented in this encounter [facility] filedocumented in [facility] encounter [facility] filedocumented in this encounter [facility] filedocumented in this encounter [facility] Summary Purpose Family History No [...] Documents on File Type Date Recorded 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 Power of Piano Tuner 10/03/2023 8:14 AM Durable Power of Piano Tuner 09/23/2023 4:17 PM [facility] Pow er of Piano Tuner Date Activated Date Inactivated Comments 09/23/2023 12:33 [...] Documents on File Type Date Recorded 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 Durable Power of Piano Tuner 09/23/2023 4:17 PM [facility] Pow er of Piano Tuner Latest Code Status on File Code Status Date Activated Date Inactivated Comments Full Code 09/23/2023 12:33 AM 09/26/2023 7:44 PM Healthcare Agents on File Name Relationship Healthcare Agent Relationshi p Communication Mike David Son Health Care Agent Malinda Brito Daughter First Alternate Health Care Agent Documents on File Type Date Recorded 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 Durable Power of Piano Tuner 09/23/2023 4:17 PM [facility] Pow er of Piano Tuner Latest Code Status on File Code Status [...] Agents on File Name Relationship Healthcare Agent Relationspa p Communication Mike Mane Health Care Agent [...] B12 deficiency Thrombocytosis Vision blurred Temporal arteritis ([facility]) Procedures Follow-up with primary care provider Bart Milian MD [address] [place] [address] Referral ID Status Reason Start Date Expiration Date V isits Requested Visits Authorized [id number] Pending Review 09/26/2023 09/25/2024 1 1 Specialty Diagnoses / Procedures Referred By Contac t Referred To Contact Procedures Adult diet Bart Milian MD [address] [place] [address] Referral ID Status Reason Start Date Expiration Date V isits Requested Visits Authorized [id number] Pending Review 09/26/2023 09/25/2024 1 1 Additional Source Comments INFORMATION SOURCE (unrecogn ized section and content) DATE CREATED AUTHOR 11/18/2021 [facility] DATE CREATED AUTHOR AUTHOR'S ORGANIZ ATION 01/31/2023 [facility] DATE CREATED AUTHOR AUTHOR'S ORGANIZ ATION 04/15/2023 [facility] DATE CREATED AUTHOR AUTHOR'S ORGANIZ ATION 10/04/2023 [facility] DATE CREATED AUTHOR AUTHOR'S ORGANIZ ATION 07/24/2024 [facility] DATE CREATED AUTHOR AUTHOR'S ORGANIZ ATION 10/12/2024 [facility] DATE CREATED AUTHOR AUTHOR'S ORGANIZ ATION 12/07/2024 [facility] Care Teams (unrecognized sec tion and content) Team Status: Active Member Role Status Dates Giovanna Graf APRN ANESTHESIOLOGY PHYSICIAN-C Primary Care Provider Active Team Status: Inactive Member Role Status Dates Giovanna Graf APRN ANESTHESIOLOGY PHYSICIAN-C Primary Care Provider, Attending Provider Active Start: October 16, 2023 End: October 16, 2023 Team Status: Active Member Role Status Dates Giovanna Graf APRN ANESTHESIOLOGY PHYSICIAN-C Primary Care Provider, Attending Provider Active Start: October 30, 2023 Team Status: Active Member Role Status Dates Giovanna Graf APRN ANESTHESIOLOGY PHYSICIAN-C Primary Care Provider Active Start: December 29, 2023 Jt Jasso MD Attending Provider Active S tart: December 29, 2023 Team Status: Inactive Member Role Status Dates Giovanna Lesia WATCH GUARD GATE ANESTHESIOLOGY PHYSICIAN-C Primary Care Provider, Attending Provider Active Start: December 29, 2023 End: December 29, 2023 Team Status: Active Member Role Status Dates Giovanna Lesia WATCH GUARD GATE ANESTHESIOLOGY PHYSICIAN-C Primary Care Provider, Attending Provider Active Start: March 05, 2024 Team Status: Inactive Member Role Status Dates Giovanna KESHIA GrafN ANESTHESIOLOGY PHYSICIAN-C Primary Care Provider, Attending Provider Active Start: April 13, 2024 End: April 13, 2024 Team Status: Active Member Role Status Dates Giovanna Lesia WATCH GUARD GATE ANESTHESIOLOGY PHYSICIAN-C Primary Care Provider Active Start: April 302023 Jt Jasso MD Attending Provider Active S tart: April 30, 2024 Team Status: Active Member Role Status Dates Giovanna Lesia WATCH GUARD GATE ANESTHESIOLOGY PHYSICIAN-C Primary Care Provider, Attending Provider Active Start: July 07, 2024 Team Status: Inactive Member Role Status Dates Giovanna Alanisjen WATCH GUARD GATE ANESTHESIOLOGY PHYSICIAN-C Primary Care Provider, Attending Provider Active Start: July 12, 2024 End: July 12, 2024 Web Search Evaluator Relationship Specialty Start Date End Date Giovanna Graf APRN-ANESTHESIOLOGY PHYSICIAN [address] [place] [id number] PCP - General Nurse Practitioner 10/10/23 Web Search Evaluator Relationship Specialty Start Date End Date Giovanna Graf WATCH GUARD GATE-ANESTHESIOLOGY PHYSICIAN [address] [place] [id number] PCP - General Nurse Practitioner 10/10/23 Web Search Evaluator Relationship Specialty Start Date End Date John Patel DO [address] [place] [id number] PCP - General 01/23/17 Web Search Evaluator Relationship Specialty Start Date End Date John Patel DO [address] [place] [id number] PCP - General 01/23/17 Web Search Evaluator Relationship Specialty Start Date End Date Giovanna Graf APRN-ANESTHESIOLOGY PHYSICIAN [address] [place] [address] PCP - General Nurse Practitioner 10/10/23 Web Search Evaluator Relationship Specialty Start Date End Date Giovanna Graf APRN-NP [address] [place] [address] PCP - General Nurse Practitioner 10/10/23 Team Status: Inactive Member Role Status Dates Giovanna Graf APRN ANESTHESIOLOGY PHYSICIAN-C Primary Care Provider Active Start: July 162023 End: July 16, 2024 Angel Amanda DO Attending Provider Active Sta rt: July 16, 2024 End: July 16, 2024 Team Status: Active Member Role Status Dates Giovanna Graf APRN ANESTHESIOLOGY PHYSICIAN-C Primary Care Provider Active Start: September 02, 2024 Jt Jasso MD Attending Provider Active S tart: September 02, 2024 Team Status: Inactive Member Role Status Dates Giovanna Graf APRN ANESTHESIOLOGY PHYSICIAN-C Primary Care Provider, Attending Provider Active Start: [...] Stroke-like symptoms CVA symptoms Tono Pan MD [address] [place] [address] Referral ID Status Reason Start Date Expiration Date Visits Re quested Visits Authorized [id number] 1 1 Reason Comments Follow-up Hospital discharge f ollow up. Recent TAB. Reason Onset Date Comments Med Refill 10/17/2023 Reason Comments Follow-up Scheduled Active and Recently Administ ered Medications (unrecognized section and content) Medication Order 09/24/2023 09/25/2023 09/26/2023 cyanocobalamin tablet 1,000 mcg 1,000 mcg, oral, Daily, First dose on Fri09/23/23 at 1400 0837 (Given - Provider: Kimberly Chin, ASHIA) 0613 (MAR Hold - Provider: Automatic Transfer [...] grams (4000 mg) in 24 hours] 0613 ([facility] Hold - Provider: Automatic Transfer [...] mg/dL after initial treatment, repeat treatment. 612 ([facility] Hold - Provider: Automatic Transfer Provider - Reason: Patient not available)1151 ([facility] Unhold - Provider: Automatic Transfer Provider) dextrose 5 % (D5W) infusion 100 mL/hr, intravenous, Continuous PRN, blood glucose less than 70 mg/dL, Starting on Fri09/23/23 at 0032, Use immediately following dextrose 50% or glucagon treatment for patients who are unconscious or NPO. Contact prescriber for additional orders. If blood glucose is not greater than 70 mg/dL after initial treatment, repeat treatment. 612 ([facility] Hold - Provider: Automatic Transfer Provider - Reason: Patient not available)1151 ([facility] Unhold - Provider: Automatic Transfer Provider) dextrose [...] treatment. VESICANT (RED) Warning: HYPERTONIC solution. 612 ([facility] Hold - Provider: Automatic Transfer Provider - Reason: Patient not available)1151 ([facility] Unhold - Provider: Automatic Transfer Provider) fentaNYL [...] mg/dL after initial treatment, repeat treatment. 0613 ([facility] Hold - Provider: Automatic Transfer Provider - Reason: Patient not available)1151 ([facility] Unhold - Provider: Automatic Transfer Provider) ondansetron (PF) (ZOFRAN) injection 4 mg 4 mg, intravenous, Every 8 hours PRN, nausea, vomiting, Starting on Fri09/23/23 at 0032, Administer over 2-5 minutes. 0613 ([facility] Hold - Provider: Automatic Transfer Provider - Reason: Patient not available)1151 ([facility] Unhold - Provider: Automatic Transfer Provider) sennosides-docusate sodium (SENOKOT-S) 8.6-50 mg 1 tablet 1 tablet, oral, Every 12 hours PRN, constipation, Starting on Fri09/23/23 at 0032 0613 ([facility] Hold - Provider: Automatic Transfer Provider - Reason: Patient not available)1151 ([facility] Unhold - Provider: Automatic Transfer Provider) sodium [...] use, Starting on Fri09/23/23 at 0032 0613 ([facility] Hold - Provider: Automatic Transfer Provider - Reason: Patient not available)1151 ([facility] Unhold - Provider: Automatic Transfer Provider) sodium chloride 0.9 % flush bag 25 mL, intravenous, at 100 mL/hr, Administer over 15 Minutes, As needed, line care, line care after IVPB administration, Starting on Fri09/23/23 at 0032 0613 ([facility] Hold - Provider: Automatic Transfer Provider - Reason: Patient not available)1151 ([facility] Unhold - Provider: Automatic Transfer Provider) sodium chloride 0.9 % infusion 20 mL/hr, intravenous, Continuous PRN, to maintain patency of lines, Starting on Fri09/23/23 at 0032 1008 (Restarted - Provider: Kimberly Chin RN) 0613 ([facility] Hold - Provider: Automatic Transfer Provider - Reason: Patient not available)1151 ([facility] Unhold - Provider: Automatic Transfer Provider) sodium [...] BE BASED ON THE PRIMARY CLINICAL RECORDS. [facility]. provides no warranty or guarantee of the accuracy or completeness of information in this document.
--- NOTE | 2024-12-10 01:50 | ECG_ITS ---
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 Measurements Intervals Slaughter Rate: 90 P: 54 IL: 152 QRS: 27 QRSD: 76 T: 35 QT: 352 QTc: 399 Interpretive Statements 1100 Sinus rhythm 1970 with occasional ectopic premature complexes 8102 Low QRS voltage in chest leads 9140 abnormal rhythm ECG Compared to ECG 09/22/2023 14:29:36 Low QRS voltage now present Electronically Signed On 12-10-2024 11:54:35 EDT by DOC SINHA M.D.
[2024-12-10 02:54] LABS: Basophils Absolute Auto 0.1 10^3/uL (0.0-0.1); Basophils Percent Auto 0.6 % (0.2-2.0); Eosinophils Absolute Auto 0.2 10^3/uL (0.0-0.7); Hematocrit 37.5 % (36.0-48.0); Hemoglobin 12.5 g/dL (12.0-16.0); Immature Granulocytes Abs Auto 0.01 10^3/uL (0.00-0.03); Immature Granulocytes Pct Auto 0.1 % (0.0-0.5); Lymphocytes Absolute Auto 4.2 10^3/uL (1.2-3.8); Lymphocytes Percent Auto 54.1 % (20.5-60.0); Mean Corpuscular HGB Conc 33.3 g/dL (29.9-35.2); Mean Corpuscular Hemoglobin 32.1 pg (26.7-34.0); Mean Corpuscular Volume 96.2 fL (81.0-99.0); Mean Platelet Volume 10.7 fL (9.5-13.5); Monocytes Absolute Auto 0.7 10^3/uL (0.3-0.8); Monocytes Percent Auto 8.7 % (1.7-12.0); Neutrophils Absolute Auto 2.7 10^3/uL (1.4-6.5); Neutrophils Percent Auto 34.5 % (43.0-75.0); Platelet Count 231 10^3/uL (150-450); Red Cell Distribution Width 13.5 % (11.0-15.0); White Blood Count 7.8 10^3/uL (4.0-11.0)
[2024-12-10] MEDS: ONDANSETRON PF 4 MG/2 ML VIAL IV (02:56)
[2024-12-10] MEDS: MORPHINE SULFATE 2 MG/ML SYRINGE IV (02:56)
[2024-12-10 03:07] LABS: BUN Creatinine Ratio 32.6; Calcium 9.3 mg/dL (8.5-10.1); Carbon Dioxide 31.8 mmol/L (21.0-32.0); Chloride 106 mmol/L (98-107); Estimated GFR (African America >60 (>=60 mL/min/1.73m^2); Estimated GFR (Non-African Ame 59 (>=60 mL/min/1.73m^2); Glucose 98 mg/dL (74-106); Potassium 3.8 mmol/L (3.5-5.1); Sodium 145 mmol/L (136-145); Troponin I High Sensitivity 25.3 pg/mL (4.0-51.3)
--- NOTE | 2024-12-10 03:32 | ED.GENADUL1 ---
HPI HPI - General Adult General Chief complaint: Chest Pain Stated complaint: SHOULDER PAIN Time Seen by Provider: 12/10/24 01:35 Source: patient Mode of arrival: walk-in Limitations: no limitations History of Present Illness HPI narrative: This 79-year-old female with a history of chronic left shoulder pain who has been seen by pain management and had the nerves burned that go to her shoulder presents for evaluation of left-sided shoulder pain that comes in waves and spasms and radiates into her chest and down the left side of her body. She has also had 2 episodes of vomiting earlier today and complains of some nausea. She does not have any shortness of breath or dizziness. She denies any abdominal pain but is having some foul tasting belching. She called her son to bring her to the emergency department this morning. She denies any recent injury. She has no numbness or tingling of the extremity. She is legally blind. Related Data Home Medications ?Medication ?Instructions ?Recorded ?Confirmed aspirin 81 mg tablet,delayed 81 mg PO DAILY 11/21/24 12/10/24 release multivitamin (Daily Multi-Vitamin 1 tab PO DAILY 11/21/24 12/10/24 tablet) prednisone 2.5 mg tablet 2.5 mg PO DAILY 11/21/24 12/10/24 tocilizumab 162 mg/0.9 mL 162 mg subcut Q14D 11/21/24 12/10/24 subcutaneous pen injector (Actemra ACTPen) Allergies Allergy/AdvReac Type Severity Reaction Status Date / Time Penicillins Allergy Mild Flushing Verified 12/10/24 01:37 Opioid HPI Opioid Management Most Recent Opioid Data: Last Pain Scale 10 12/10/24 02:56 12/10/24 Last MAR Pain Assessment 12/10/24 02:56 Review of Systems ROS Status of ROS 10 or more systems reviewed and unremarkable except as noted in history and below [facility] Medical History Acid reflux ?K21.9 - Gastro-esophageal reflux disease without esophagitis (ICD-10) Kidney calculi ?N20.0 - Calculus of kidney (ICD-10) Neck pain ?M54.2 - Cervicalgia (ICD-10) Surgical History History of bilateral tubal ligation ?Z98.51 - Tubal ligation status (ICD-10) History of phacoemulsification of cataract of both eyes with intraocular lens implantation ?Z98.41 - Cataract extraction status, right eye (ICD-10) ?Z98.42 - Cataract extraction status, left eye (ICD-10) ?Z96.1 - Presence of intraocular lens (ICD-10) Hx of appendectomy ?Z90.49 - Acquired absence of other specified parts of digestive tract (ICD-10) Social History Smoking status: Former smoker Little interest or pleasure in doing things: not at all Feeling down, depressed, or hopeless: not at all Exam Narrative Exam Narrative: Vital signs and Nursing Notes reviewed: Is afebrile with a normal pulse, blood pressure is elevated 150/78, she has not hypoxic with pulse ox of 98% on room air General: Awake, alert, oriented, no acute distress, lying comfortably on the stretcher with episodes where she winces and cries out due to left shoulder pain otherwise comfortable appearing HEENT: Normocephalic atraumatic, mucous membranes are moist and pink, patient keeps her eyes closed during the exam, history of being legally blind Neck: Supple, midline bony vertebral tenderness or step-off, no JVD, mild tenderness and spasming of the left sternocleidomastoid muscles Chest: Lungs are clear to auscultation with good air entry, there is no wheezing rhonchi or rales appreciated no accessory muscle use, patient is speaking in complete sentences-no chest wall tenderness to palpation CVS: Regular rate and rhythm S1-S2, no murmurs rubs or gallops, pulses are brisk and equal bilaterally ABD: Soft, nondistended, nontender, no rebound guarding or rigidity, bowel sounds are normal, no pulsatile masses appreciated Extremities: Moving all extremities, no lower extremity tenderness or swelling noted, tenderness to the left shoulder girdle area and posterior muscle spasm in the left trapezius and scalene muscles, decreased range of motion due to pain, popcorn attendant strength is intact Skin: Normal in appearance without rash,pallor, petechiae or purpura Neuro: No focal deficits Constitutional Vital Signs, click to edit/add: Last Vital Signs Temp 97.9 F 12/10/24 01:31 Pulse 83 12/10/24 02:01 Resp 23 H 12/10/24 02:01 BP 150/78 H 12/10/24 02:01 Pulse Ox 98 12/10/24 02:01 O2 Del Method Room Air 12/10/24 01:31 Course Vital Signs Vital signs: Vital Signs Temperature 97.9 F 12/10/24 01:31 Pulse Rate 96 H 12/10/24 01:31 Respiratory Rate 25 H 12/10/24 01:31 Blood Pressure 171/89 H 12/10/24 01:31 Pulse Oximetry 99 12/10/24 01:31 Oxygen Delivery Method Room Air 12/10/24 01:31 Temperature 97.9 F 12/10/24 01:31 Pulse Rate 83 12/10/24 02:01 Respiratory Rate 23 H 12/10/24 02:01 Blood Pressure 150/78 H 12/10/24 02:01 Pulse Oximetry 98 12/10/24 02:01 Oxygen Delivery Method Room Air 12/10/24 01:31 Medical Decision Making MDM Narrative Medical decision making narrative: This 79-year-old female who is legally blind and has a history of chronic left shoulder pain who has been in pain management for the shoulder in the past presents for evaluation of nausea and 2 episodes of vomiting earlier in the evening and left-sided shoulder pain that comes in spasms and radiates across her chest. This is consistent with her prior history of chronic shoulder pain. She denies any recent injury. She has no focal weakness or numbness. She has tenderness in the left scalene and trapezius muscles as well as over the shoulder girdle. EKG done upon arrival was a sinus rhythm at 78 bpm with no acute changes. An IV was placed and she was medicated with morphine and Zofran. Cardiac workup was ordered. She has a normal white count and hemoglobin. Electrolytes are normal. Her troponin is normal at 25. X-ray of the chest and left shoulder was ordered. There is no fracture or dislocation of the left shoulder and chest x-ray shows no acute pulmonary infiltrate, no pneumothorax, normal cardiac borders with some calcification of the aorta. On reevaluation the patient states she is feeling much better. She is still having some belching but her shoulder pain has resolved. She feels comfortable being discharged home. She will be discharged home with Zofran and 2 Montegut and a prescription for Zofran to use as needed. She was encouraged to make an appointment with pain management as she may require additional nerve block procedures for the acute on chronic shoulder pain she is experiencing. Medical Records Medical records reviewed: Yes I reviewed the patient's medical records Lab Data Lab results reviewed: Yes I reviewed the patient's lab results Labs: Lab Results 12/10/24 Range/Units 01:49 WBC 7.8 (4.0-11.0) 10^3/uL RBC 3.90 L (4.20-5.40) 10^6/uL Hgb 12.5 (12.0-16.0) g/dL Hct 37.5 (36.0-48.0) % MCV 96.2 (81.0-99.0) fL MCH 32.1 (26.7-34.0) pg MCHC 33.3 (29.9-35.2) g/dL RDW 13.5 (11.0-15.0) % Plt Count 231 (150-450) 10^3/uL MPV 10.7 (9.5-13.5) fL Neut % (Auto) 34.5 L (43.0-75.0) % Lymph % (Auto) 54.1 (20.5-60.0) % Millard % (Auto) 8.7 (1.7-12.0) % Eos % (Auto) 2.0 (0.9-7.0) % Baso % (Auto) 0.6 (0.2-2.0) % Neut # (Auto) 2.7 (1.4-6.5) 10^3/uL Lymph # (Auto) 4.2 H (1.2-3.8) 10^3/uL Millard # (Auto) 0.7 (0.3-0.8) 10^3/uL Eos # (Auto) 0.2 (0.0-0.7) 10^3/uL Baso # (Auto) 0.1 (0.0-0.1) 10^3/uL Abs Immat Gran (auto) 0.01 (0.00-0.03) 10^3/uL Imm/Tot Granulo (auto) 0.1 (0.0-0.5) % Sodium 145 (136-145) mmol/L Potassium 3.8 (3.5-5.1) mmol/L Chloride 106 (98-107) mmol/L Carbon Dioxide 31.8 (21.0-32.0) mmol/L Anion Gap 11.0 BUN 30.0 H (7.0-18.0) mg/dL Creatinine 0.92 (0.55-1.02) mg/dL Est GFR ( Amer) >60 (>=60 mL/min/1.73m^2) Est GFR (Non-Af Amer) 59 L (>=60 mL/min/1.73m^2) BUN/Creatinine Ratio 32.6 Glucose 98 (74-106) mg/dL Calcium 9.3 (8.5-10.1) mg/dL Troponin I High Sens 25.3 (4.0-51.3) pg/mL ECG Data Attestation: I personally reviewed and interpreted this ECG as follows: (Sinus rhythm at 90 bpm, normal axis, low QRS voltage in chest leads, no acute ST segment elevation or T wave inversion) Discharge Plan Discharge Chief Complaint: Chest Pain Clinical Impression: Left shoulder pain, Nausea & vomiting Patient Disposition: Home, Self-Care Time of Disposition Decision: 03:56 Condition: Good Prescriptions / Home Meds: No Action aspirin 81 mg tablet,delayed release (DR/EC) 81 mg PO DAILY Actemra ACTPen 162 mg/0.9 mL pen injector 162 mg subcut Q14D multivitamin [Daily Multi-Vitamin] Tablet 1 tab PO DAILY prednisone 2.5 mg tablet 2.5 mg PO DAILY Print Language: Puerto Rican Instructions: Arthralgia (ED) Referrals: RENE JENKINS [Primary Care Provider] - 1 week
[2024-12-10] MEDS: ONDANSETRON 4 MG RAPDIS TABLET SL (04:13)
[2024-12-10] MEDS: HYDROCODONE/ACET 5-325 MG TABLET 2 TAB PO (04:14)
== END 2024-12-10 04:14 | disposition home or self-care (01) ==
PROVIDERS: Emergency Provider Emergency Medicine; PCP Nurse Practitioner Family
DX: M25.512 Pain in left shoulder (principal); G89.29 Other chronic pain; R11.2 Nausea with vomiting, unspecified; H54.8 Legal blindness, as defined in USA; Z87.891 Personal history of nicotine dependence
CPT/HCPCS: 36415; 71045; 73030; 80048; 84484; 85025; 93005; 96374; 96375; 99285; J2270; J2405; Q0162

== ENCOUNTER 2025-01-27 07:38 | Outpatient (OUT) | payer MEDICARE, SELFPAY ==
--- OUTSIDE RECORDS SUMMARY | 2025-01-27 07:54 | XMS_ITS | CCD ---
Author Organization [facility] Care Team Providers Care Psychiatric Assistant Name Role Phone LEAH, DR PATO Perez [...] Primary Care Unavailable MOUNA BAUTISTA Attending Unavailable JORGE JOHN Cristóbal Referring Unavailable ROHRBACHER, GIOVANNA Primary Care Unavailable Rohrbacher GATE WATCH-MEDICAL RADIATION TECH, Giovanna Primary Care [facility] er Jorge John Primary Care Provider Rohrbacher GATE WATCH-MEDICAL RADIATION TECH, Giovanna Primary Care [facility] er MYRA COTA Attending Unavailable ROHRBACHER, GIOVANNA Referring Unavailable ROHRBACHER, GIOVANNA Primary Care Unavailable MYRA COTA Attending Unavailable ROHRBACHER, GIOVANNA Referring Unavailable ROHRBACHER, GIOVANNA Primary Care Unavailable MYRA COTA Attending Unavailable ROHRBACHER, GIOVANNA Referring Unavailable ROHRBACHER, GIOVANNA Primary Care Unavailable ALTOROK NEZAM I Attending Unavailable ALTOROK, NEZAM I Attending Unavailable ALTOROK, NEZAM I Attending Unavailable Allergies Allergy Classification Reported Allergen(s) Allergy Type Date of Onset Reaction(s) Facility (1 source) Penicillins Drug allergy (disorder) [facility] Repository (16 sources) Penicillin; Translations: [PENICILLIN] Drug Allergy 4 Confusion, Fever [facility] Repository (1 source) Ciprofloxacin; Translations: [CIPROFLOXACIN] Drug Allergy 4 [facility] Repository Medications Current Medications Medication Drug Class(es) Dates Sig (Normalized) Sig (Original) acetaminophen 500 mg oral capsule (19 sources) Start: 10-16-2023 take 1 capsule by mouth every six hours as needed Acetaminophen 500 mg capsule Active 500 MG PO Every 6 hours as needed October 16, 2023 1:00am Start: 09-23-2023 End: [...] aspirin 81 mg delayed release oral tablet (16 sources) Platelet Aggregation Inhibitor, Nonsteroidal Anti-inflammatory Drug Start: 09-26-2023 End: 10-26-2023 take 1 tablet by mouth once daily Aspirin 81 mg tablet,delayed release (DR/EC) Active 81 MG PO Daily October 16, 2023 1:00am aspirin 81 mg ch ewable tablet Chew 1 tablet (81 mg total) and swallow in the morning. Active ferrous sulfate 325 mg oral tablet (11 sources) Start: 12-29-2023 take 1 tablet by [...] propionate 0.05 mg/actuat metered dose nasal spray (11 sources) Corticosteroid Start: 01-23-2024 take 2 spray(s) [...] 23, 2024 8:38am administer into each nostril rzjzyhtkhzcb-bhanibkk-mbqktj (MULTIVITAMIN 50 PLUS) tablet (2 sources) Start: 10-06-2024 End: 10-06-2025 kfmdbzrymzhm-giytztod-mhmjjk (MULTIVITAMIN 50 PLUS) tablet Take 1 tablet by mouth in the morning. 10/06/2024 10/06/2025 Active omeprazole 20 mg delayed release oral capsule (2 sources) Proton Pump Inhibito r Start: 12-16-2024 take 1 capsule by mouth once daily Omeprazole 20 mg capsule,delayed release(DR/EC) Active 20 MG PO Daily 90 90 December 16, 2024 12:00am take 2 capsules by mouth in the morning omeprazole (PriLOSEC) 10 mg capsule Take 2 capsules (20 mg total) by mouth in the morning. Active predniSONE 2.5 mg oral tablet (20 sources) Start: 04-13-2024 take 2 tablets by mouth once daily Prednisone 2.5 mg tablet Active 5 MG PO Daily April 13, 2024 12:00am Start: 04-13-2024 take 5 mg by mouth once daily Prednisone Active 5 MG PO Daily April 13, 2024 12:00am Start: 10-16-2023 take 0.5 tablet by m outh once daily in the morning predniSONE (DELTASONE) 20 mg tablet Take 2.5 mg by mouth in the morning. Until 01/09/24 then going to 1/2 tablet a day. 10/16/2023 Active Start: 10-16-2023 End: 04-13-2024 take 1 tablet [...] 2023 1:00am December 29, 2023 9:30am Start: 09-26-2023 End: 09-26-2023 predniSONE (DELTASONE) table t 60 mg tiZANidine 2 mg oral tablet (2 sources) Central alpha-2 Adrenergic Agonist Start: 10-13-2024 take 1 tablet by mouth every eight hours as needed Tizanidine 2 mg tablet Active 2 MG PO Every 8 hours as needed for muscle spasticity 30 October 13, 2024 1:00am 0.9 ml tocilizumab 180 mg/ml prefilled syringe (5 sources) Interleukin-6 Receptor Antagonist inject 0.9 mL by subcutaneous injection every week ACTEMRA 162 mg/0.9 mL injection Inject 0.9 mL (162 mg total) under the skin once a week. Active vitamin b12 1 mg oral capsule (17 sources) Vitamin B12 Start: 10-16-2023 take 1 capsule by mouth once daily Cyanocobalamin (Vitamin B-12) 1,000 mcg capsule Active 1000 MCG PO Daily October 16, 2023 1:00am Start: 09-23-2023 End: 04-19-2024 take 1 tablet [...] Drug Class(es) Dates Sig (Normalized) Sig (Original) azithromycin 250 mg oral tablet (2 sources) Macrolide Antimicrobial Start: 10-13-2024 End: 12-16-2024 Azithromycin 250 mg tablet Discontinued 0 PO daily 6 October 13, 2024 1:00am December 16, 2024 2:10pm Take 2 on day 1 and then take 1 for the next 4 days (days 2-5) ciprofloxacin 500 mg oral tablet (6 sources) Quinolone Antimicrobial Start: 06-24-2018 End: 07-01-2018 take 1 tablet by mouth twice daily Ciprofloxacin Hcl 500 mg tablet Discontinued 500 MG PO Twice daily 14 June 24, 2018 12:00am June 30, 2018 1:00am July 01, 2018 1:02am docusate sodium 50 mg / sennosides, detention 8.6 mg oral tablet (1 source) Start: [...] minutes. 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, both eyes] 10-16-2023 Chronic Calculus of urinary tract (1 source) Personal history of urinary calculi; Translations: [PERSONAL HISTORY OF URINARY CALCULI] Onset: 12-26-2022 Episodic Deficiency and other anemia (11 sources) Normocytic anemia; Translations: [Anemia, unspecified] Onset: 11-06-2023 11-06-2023 Episodic Deficiency and other anemia (4 sources) Anemia; Translations: [Anemia, unspecified] 03-08-2024 Episodic Disorders of lipid metabolism (2 sources) Other hyperlipidemia; Translations: [Other hyperlipidemia] Onset: 01-28-2024 Chronic Esophageal disorders (10 sources) Gastroesophageal reflux disease; Translations: [Gastro-esophageal reflux disease without esophagitis] 10-16-2023 Chronic Genitourinary symptoms and ill-defined conditions (2 sources) Increased frequency of urination; Translations: [Frequency of micturition] 07-12-2024 Episodic Neoplasms of unspecified nature or uncertain behavior (12 sources) Thrombocytosis; Translations: [Thrombocytosis] Onset: 11-06-2023 11-06-2023 Episodic Nutritional deficiencies (5 sources) Deficiency of other specified B group vitamins; Translations: [Cobalamin deficiency] Onset: 09-23-2023 09-23-2023 Episodic Other aftercare (6 sources) Post-discharge follow-up; Translations: [Encounter for follow-up [...] Onset: 09-23-2023 Episodic Other connective tissue disease (2 sources) Spasm; Translations: [Other muscle spasm] 10-13-2024 Episodic Other connective tissue disease (2 sources) Other muscle spasm; Translations: [Spasm of muscle] 10-13-2024 Episodic Other injuries and conditions due to external causes (3 sources) At high risk for fall; Translations: [History of falling] 04-14-2024 Episodic Other injuries and conditions due to external causes (1 source) History of falling; Translations: [History of fall] 04-13-2024 Episodic Other skin disorders (3 sources) Dry skin dermatitis; Translations: [Xerosis cutis] 04-14-2024 Episodic Other skin disorders (1 source) Xerosis cutis; Translations: [Contact dermatitis and other eczema due to other specified agents] 04-13-2024 Episodic Otitis media and related conditions (16 sources) Dysfunction of eustachian tube; Translations: [Unspecified Eustachian tube disorder, unspecified ear] 12-29-2023 Episodic Spondylosis; intervertebral disc disorders; other back problems (1 source) Spondylosis without myelopathy or radiculopathy, cervical region; Translations: [SPONDYLS W/O MYELO-/RADICULOP CERV] Onset: 12-26-2022 Chronic Spondylosis; intervertebral disc disorders; other back problems (8 sources) Dorsalgia, unspecified; Translations: [Spinal stenosis, cervical region] Onset: 12-25-2022 Episodic Systemic lupus erythematosus and connective tissue disorders (20 sources) Other giant cell arteritis; Translations: [Temporal arteritis] Onset: 09-23-2023 10-16-2023 Chronic Unclassified (2 sources) Thrombocytosis, unspecified; Translations: [Thrombocytosis, unspecified] Onset: 09-23-2023 Unclassified (1 source) CVA symptoms Onset: 09-23-2023 Past or Other Problems Problem Classification Problem Date Documented Date Episodic/Chronic Blindness and vision defects (17 sources) Other visual disturbances; Translations: [Blurring of [...] viral diseases] Onset: 01-28-2024 Episodic Mood disorders (11 sources) Mood disorders Onset: 09-23-2023 09-23-2023 Other aftercare (2 sources) care home (current) use of systemic steroids; Translations: [care home (current) use of systemic steroids] Onset: 01-28-2024 Episodic Other connective tissue disease (1 source) Pain in lower limb Onset: 02-05-2024 Episodic Other connective tissue disease (13 sources) Neurological symptom; Translations: [Unspecified symptoms and [...] Name Value Interpretation Reference Range Facility 36on 01-25-2025 36 LVM informing wong ga's daughter. [facility] 36on 01-24-2025 36 Spoke with patient's daughter this morning and she is stable right now with slightly improved symptoms. She is currently taking Prednisone 2.5mg daily , should she come into office or change medications? Please advise. Thanks [facility] Basophils Auto (Bld) [#/Vol] on 12-10-2024 Basophils (Bld) [#/Vol] Automated basoph il count 0.0-0.1 [facility] Basophils/100 WBC Auto (Bld) on 12-10-2024 Basophils/100 WBC (Bld) Automated basophil % 0. 2-2.0 [facility] Eosinophils/100 WBC Auto (Bl d)on 12-10-2024 Eosinophils/100 WBC (Bld) Automated eosinophil % 0.9-7.0 [facility] Erythrocyte distribution wid th Auto (RBC) [Ratio]on 12-10-2024 Erythrocyte distribution width (RBC) [Ratio] Erythrocyte distribution width [Ratio] by Automated count 11.0-15.0 [facility] Estimated glomerular filtrat ion rate (GFR) non- Americanon 12-10-2024 GFR/1.73 sq M.predicted among non-blacks MDRD (S/P/Bld) [Vol rate/Area] Estimated glomerular filtration rate (GFR) non- Low >=60 mL/min/1.73 m 2 [facility] Hematocrit Auto (Bld) [Volum e fraction]on 12-10-2024 Hematocrit (Bld) [Volume fraction] Hematocrit [Volume Fraction] of Blood by Automated count 36.0-48.0 [facility] Hemoglobin [Mass/volume] in Bloodon 12-10-2024 Hemoglobin (Bld) [Mass/Vol] Hemoglobin [Mass/volume] in Blood 12.0-16.0 [facility] Laboratory - Chemistry and C hemistry - challengeon 12-10-2024 Calcium [Mass/Vol] 9.3 mg/dL 8.5-10.1 [facility] Chloride [Moles/Vol] 106 mmol/L 98-107 [facility] CO2 [Moles/Vol] 31.8 mmol/L 21.0-32.0 [facility] Creatinine [Mass/Vol] 0.92 mg/dL 0.55-1.02 [facility] GFR/1.73 sq M.predicted MDRD (S/P/Bld) [Vol rate/Area] mL/min/{1.73_m2} >=60 mL/min/1.73 m 2 [facility] Glucose [Mass/Vol] 98 mg/dL 74-106 [facility] Potassium [Moles/Vol] 3.8 mmol/L 3.5-5.1 [facility] Sodium [Moles/Vol] 145 mmol/L 136-145 [facility] Urea nitrogen [Mass/Vol] 30.0 mg/dL High 7.0-18.0 [facility] Urea nitrogen/Creatinine [Mass ratio] 32.6 mg/mg [facility] Laboratory - Hematology and Cell countson 12-10-2024 Immature granulocytes/100 WBC (Bld) 0.1 % 0.0-0.5 [facility] Leukocytes [#/volume] correc tyrone for nucleated erythrocytes in Blood by Automated counon 12-10-2024 WBC corrected for nucl RBC Auto (Bld) [#/Vol] Leukocytes [#/volume] corrected for nucleated erythrocytes in Blood by Automated coun 4.0-11.0 [facility] Lymphocytes Auto (Bld) [#/Vo l]on 12-10-2024 Lymphocytes (Bld) [#/Vol] Lymphocytes [#/volume] in Blood by Automated count High 1.2-3.8 [facility] Lymphocytes/100 WBC Auto (Bl d)on 12-10-2024 Lymphocytes/100 WBC (Bld) Lymphocytes/100 leukocytes in Blood by Automated count 20.5-60.0 [facility] MCH Auto (RBC) [Entitic mass ]on 12-10-2024 MCH (RBC) [Entitic mass] MCH [Entitic ma ss] by Automated count 26.7-34.0 [facility] MCHC Auto (RBC) [Mass/Vol]on 12-10-2024 MCHC (RBC) [Mass/Vol] MCHC [Mass/volume] by Automated count 29.9-35.2 [facility] MCV Auto (RBC) [Entitic vol] on 12-10-2024 MCV (RBC) [Entitic vol] MCV [Entitic vol ume] by Automated count 81.0-99.0 [facility] Monocytes Auto (Bld) [#/Vol] on 12-10-2024 Monocytes (Bld) [#/Vol] Automated blood monocyte count 0.3-0.8 [facility] Monocytes/100 WBC Auto (Bld) on 12-10-2024 Monocytes/100 WBC (Bld) Automated monocyte % 1. 7-12.0 [facility] Neutrophils Auto (Bld) [#/Vo l]on 12-10-2024 Neutrophils (Bld) [#/Vol] Neutrophils [#/volume] in Blood by Automated count 1.4-6.5 [facility] Neutrophils/100 WBC Auto (Bl d)on 12-10-2024 Neutrophils/100 WBC (Bld) Automated neutrophil % Low 43.0-75.0 [facility] No Panel Informationon 12-10 Eosinophils # (Auto) 0.2 10 3/uL 0.0-0.7 [facility] Immature Granulocyte # (Auto) 0.01 10 3/uL 0.00-0.03 [facility] Troponin I High Sensitivity 25.3 pg/mL 4.0-51.3 [facility] Comment on above: CUT-OFF POINTS HAVE BEEN ESTABLISHED BASED ON THE FOURTHUNIVERSAL DEFINITION OF MYOCARDIAL INFARCTION. THE UPPERREFERENCE LIMIT (URL) OF TROPONIN, DEFINED THE 99THPERCENTILE OF cTnI DISTRIBUTION IN A REFERENCE POPULATION,HAS BEEN CONFIRMED THE DECISION THRESHOLD FOR MIDIAGNOSIS.99TH PERCENTILE = 51.4 PG/MLNOTE: HIGH-SENSITIVITY TROPONIN ASSAY IS NOT INTENDED TO BEUSED IN ISOLATION BUT SHOULD BE INTERPRETED IN CONJUNCTIONWITH OTHER DIAGNOSTIC AND CLINICAL INFORMATION. Platelet mean volume Auto (B ld) [Entitic vol]on 12-10-2024 Platelet mean volume (Bld) [Entitic vol] Platelet mean volume [Entitic volume] in Blood by Automated count 9.5-13.5 [facility] Platelets Auto (Bld) [#/Vol] on 12-10-2024 Platelets (Bld) [#/Vol] Platelets [#/vol ume] in Blood by Automated count 150-450 [facility] RBC Auto (Bld) [#/Vol]on RBC (Bld) [#/Vol] Erythrocytes [#/volu me] in Blood by Automated count Low 4.20-5.40 [facility] Serum or plasma anion gap de terminationon 12-10-2024 Anion gap [Moles/Vol] Serum or plasma an ion gap determination [facility] 36on 12-06-2024 36 Spoke with patient's daughter and she is requesting training on pen device. [facility] performed training in the past. Given phone number for pharmacy. [facility]illon 11-23-2024 Refill [id number] Carlyle David 1945 F Date Provider Department Center 11/23/2024 LINDSAY JACKSON [facility] No family history on file Reason for Visit and Comments: Med Refill [[id number]] [facility] 36on 11-15-2024 36 Informed CBC, ESR , Albumin and globulin level received from [facility] 36 Spoke with daughter, informed that we had not received any lab results on the patient. Daughter states that they were completed earlier this month at [facility]. LVM at [place] requesting results of lab be faxed to our office [facility]. Fax number and contact number left on voicemail with med records. Awaiting results [facility] 36 LVM again returning daughter's call regarding Lab results. [facility] 36on 11-12-2024 36 Voicemail, patient's daughter, Malinda, would like a callback at [phone] to discuss lab results [facility] Telephoneon 11-12-2024 Telephone [phone] Carlyle David 1945 Date Provider Department [place] 11/12/2024 JT CROOK I [facility] No family history on file Normal [facility] 36on 11-11-2024 36 LVM returning call. I do not have any recent lab results in the patient's chart. Normal [facility] 36 Patient daughter dalia led about lab results. Normal [facility] Basophils Auto (Bld) [#/Vol] on 11-06-2024 Basophils (Bld) [#/Vol] Automated basoph il count 0.0-0.1 [facility] Basophils/100 WBC Auto (Bld) on 11-06-2024 Basophils/100 WBC (Bld) Automated basophil % 0. 2-2.0 [facility] Eosinophils/100 WBC Auto (Bl d)on 11-06-2024 Eosinophils/100 WBC (Bld) Automated eosinophil % 0.9-7.0 [facility] Erythrocyte distribution wid th Auto (RBC) [Ratio]on 11-06-2024 Erythrocyte distribution width (RBC) [Ratio] Erythrocyte distribution width [Ratio] by Automated count 11.0-15.0 [facility] Estimated glomerular filtrat ion rate (GFR) non- Americanon 11-06-2024 GFR/1.73 sq M.predicted among non-blacks MDRD (S/P/Bld) [Vol rate/Area] Estimated glomerular filtration rate (GFR) non- >=60 mL/min/1.73 m 2 [facility] Globulin Calc (S) [Mass/Vol] on 11-06-2024 Globulin (S) [Mass/Vol] Serum globulin measurement by calculation (mass/volume) [facility] Hematocrit Auto (Bld) [Volum e fraction]on 11-06-2024 Hematocrit (Bld) [Volume fraction] Hematocrit [Volume Fraction] of Blood by Automated count 36.0-48.0 [facility] Hemoglobin [Mass/volume] in Bloodon 11-06-2024 Hemoglobin (Bld) [Mass/Vol] Hemoglobin [Mass/volume] in Blood Low 12.0-16.0 [facility] Laboratory - Chemistry and C hemistry - challengeon 11-06-2024 Albumin [Mass/Vol] 3.5 g/dL 3.4-5.0 [facility] ALP [Catalytic activity/Vol] 64 U/L 46-116 [facility] ALT [Catalytic activity/Vol] 26 U/L 14-59 [facility] AST [Catalytic activity/Vol] 19 U/L 15-37 [facility] Bilirubin [Mass/Vol] 0.6 mg/dL 0.2-1.0 [facility] Calcium [Mass/Vol] 8.9 mg/dL 8.5-10.1 [facility] Chloride [Moles/Vol] 107 mmol/L 98-107 [facility] CO2 [Moles/Vol] 31.8 mmol/L 21.0-32.0 [facility] Creatinine [Mass/Vol] 0.81 mg/dL 0.55-1.02 [facility] GFR/1.73 sq M.predicted MDRD (S/P/Bld) [Vol rate/Area] mL/min/{1.73_m2} >=60 mL/min/1.73 m 2 [facility] Glucose [Mass/Vol] 90 mg/dL 74-106 [facility] Potassium [Moles/Vol] 4.1 mmol/L 3.5-5.1 [facility] Protein [Mass/Vol] 6.0 g/dL Low 6.4-8.2 [facility] Sodium [Moles/Vol] 145 mmol/L 136-145 [facility] Urea nitrogen [Mass/Vol] 28.0 mg/dL High 7.0-18.0 [facility] Urea nitrogen/Creatinine [Mass ratio] 34.6 mg/mg [facility] Laboratory - Hematology and Cell countson 11-06-2024 ESR (Bld) [Velocity] 2 mm/h <=30 [facility] Immature granulocytes/100 WBC (Bld) 0.0 % 0.0-0.5 [facility] Leukocytes [#/volume] correc tyrone for nucleated erythrocytes in Blood by Automated counon 11-06-2024 WBC corrected for nucl RBC Auto (Bld) [#/Vol] Leukocytes [#/volume] corrected for nucleated erythrocytes in Blood by Automated coun 4.0-11.0 [facility] Lymphocytes Auto (Bld) [#/Vo l]on 11-06-2024 Lymphocytes (Bld) [#/Vol] Lymphocytes [#/volume] in Blood by Automated count 1.2-3.8 [facility] Lymphocytes/100 WBC Auto (Bl d)on 11-06-2024 Lymphocytes/100 WBC (Bld) Lymphocytes/100 leukocytes in Blood by Automated count 20.5-60.0 [facility] MCH Auto (RBC) [Entitic mass ]on 11-06-2024 MCH (RBC) [Entitic mass] MCH [Entitic ma ss] by Automated count 26.7-34.0 [facility] MCHC Auto (RBC) [Mass/Vol]on 11-06-2024 MCHC (RBC) [Mass/Vol] MCHC [Mass/volume] by Automated count 29.9-35.2 [facility] MCV Auto (RBC) [Entitic vol] on 11-06-2024 MCV (RBC) [Entitic vol] MCV [Entitic vol ume] by Automated count 81.0-99.0 [facility] Monocytes Auto (Bld) [#/Vol] on 11-06-2024 Monocytes (Bld) [#/Vol] Automated blood monocyte count 0.3-0.8 [facility] Monocytes/100 WBC Auto (Bld) on 11-06-2024 Monocytes/100 WBC (Bld) Automated monocyte % 1. 7-12.0 [facility] Neutrophils Auto (Bld) [#/Vo l]on 11-06-2024 Neutrophils (Bld) [#/Vol] Neutrophils [#/volume] in Blood by Automated count 1.4-6.5 [facility] Neutrophils/100 WBC Auto (Bl d)on 11-06-2024 Neutrophils/100 WBC (Bld) Automated neutrophil % Low 43.0-75.0 [facility] No Panel Informationon 11-06 Eosinophils # (Auto) 0.2 10 3/uL 0.0-0.7 [facility] Immature Granulocyte # (Auto) 0.00 10 3/uL 0.00-0.03 [facility] Platelet mean volume Auto (B ld) [Entitic vol]on 11-06-2024 Platelet mean volume (Bld) [Entitic vol] Platelet mean volume [Entitic volume] in Blood by Automated count Low 9.5-13.5 [facility] Platelets Auto (Bld) [#/Vol] on 11-06-2024 Platelets (Bld) [#/Vol] Platelets [#/vol ume] in Blood by Automated count 150-450 [facility] RBC Auto (Bld) [#/Vol]on RBC (Bld) [#/Vol] Erythrocytes [#/volu me] in Blood by Automated count Low 4.20-5.40 [facility] Serum or plasma albumin/glob ulin mass ratioon 11-06-2024 Albumin/Globulin [Mass ratio] Serum or plasma albumin/globulin mass ratio [facility] Serum or plasma anion gap de terminationon 11-06-2024 Anion gap [Moles/Vol] Serum or plasma an ion gap determination [facility] 2911-02-2024 29 Addended by: LINDSAY TIERNEY on: 11/02/2024 10:24 AM Modules accepted: Orders [facility] 36on 11-02-2024 36 Spoke with patient's daughter. The orders were not faxed to [facility] last week. I refaxed the standing orders and mailed hard copies to patient. [facility] 36 Spoke with patient's daughter and they stated that [facility] did not receive. I will fax again and mail hard copies to patient. [facility] 36 The patient daught called stating they would like to speak with the AL to discuss the shot the patient receives every 14 days is not in the chart as well as lab apers are needing to be faxed over to [facility] because they have not been received. [facility] 36on 10-28-2024 36 Printed patient labs and fax them to the fax number provided. [facility] Orders Onlyon 10-28-2024 Orders Only [id number] Carlyle David 1945 F Date Provider Department Center 10/28/2024 [id number] JASSO I [facility] No family history on file [facility] 36on 10-25-2024 36 PT daughter called i robert requesting labs to be sent to [email or web address]. Fax number provided is [phone]. Daughter stated that she wanted to know if she can have a standard order sent over from now on since these labs are required every three month. Normal [facility] Telephoneon 10-25-2024 Telephone [id number] Carlyle David 1945 F Date Provider Department Center 10/25/2024 JT CROOK I [facility] No family history on file Normal [facility] Follow-Upon 10-06-2024 Follow-Up [id number] Carlyle David 1945 F Date Provider Department Center 10/06/2024 JT CROOK I [facility] No family history on file Level of Service:80604 SD OFFICE/OUTPATIENT ESTABLISHED MOD MDM 30 MIN Normal [facility] Basophils Auto (Bld) [#/Vol] on 09-02-2024 Basophils (Bld) [#/Vol] Automated basoph il count 0.0-0.1 [facility] Basophils/100 WBC Auto (Bld) on 09-02-2024 Basophils/100 WBC (Bld) Automated basophil % 0. 2-2.0 [facility] Cholesterol in LDL Calc [Mas s/Vol]on 09-02-2024 Cholesterol in LDL [Mass/Vol] Cholesterol in LDL [Mass/volume] in Serum or Plasma by calculation [facility] Comment on above: <100 mg/dl [id number] 0-129 mg/dl NEAR OR ABOVE [id number] mg/dl BORDERLINE [id number] mg/dl HIGH>190 mg/dl VERY HIGH Cholesterol in VLDL Calc [Ma ss/Vol]on 09-02-2024 Cholesterol in VLDL [Mass/Vol] Cholesterol in VLDL [Mass/volume] in Serum or Plasma by calculation [facility] Eosinophils/100 WBC Auto (Bl d)on 09-02-2024 Eosinophils/100 WBC (Bld) Automated eosinophil % 0.9-7.0 [facility] Erythrocyte distribution wid th Auto (RBC) [Ratio]on 09-02-2024 Erythrocyte distribution width (RBC) [Ratio] Erythrocyte distribution width [Ratio] by Automated count 11.0-15.0 [facility] Estimated glomerular filtrat ion rate (GFR) non- Americanon 09-02-2024 GFR/1.73 sq M.predicted among non-blacks MDRD (S/P/Bld) [Vol rate/Area] Estimated glomerular filtration rate (GFR) non- >=60 mL/min/1.73 m 2 [facility] Globulin Calc (S) [Mass/Vol] on 09-02-2024 Globulin (S) [Mass/Vol] Serum globulin measurement by calculation (mass/volume) [facility] Hematocrit Auto (Bld) [Volum e fraction]on 09-02-2024 Hematocrit (Bld) [Volume fraction] Hematocrit [Volume Fraction] of Blood by Automated count 36.0-48.0 [facility] Hemoglobin [Mass/volume] in Bloodon 09-02-2024 Hemoglobin (Bld) [Mass/Vol] Hemoglobin [Mass/volume] in Blood 12.0-16.0 [facility] Iron binding capacity [Mass/ volume] in Serum or Plasmaon 09-02-2024 Iron binding capacity [Mass/Vol] Iron binding capacity [Mass/volume] in Serum or Plasma 250.0-450.0 [facility] Iron saturation [Mass Fracti on] in Serum or Plasmaon 09-02-2024 Iron saturation [Mass fraction] Iron saturation [Mass Fraction] in Serum or Plasma [facility] Laboratory - Chemistry and C hemistry - challengeon 09-02-2024 Albumin [Mass/Vol] 3.6 g/dL 3.4-5.0 [facility] ALP [Catalytic activity/Vol] 62 U/L 46-116 [facility] ALT [Catalytic activity/Vol] 25 U/L 14-59 [facility] AST [Catalytic activity/Vol] 19 U/L 15-37 [facility] Bilirubin [Mass/Vol] 0.5 mg/dL 0.2-1.0 [facility] Calcium [Mass/Vol] 8.9 mg/dL 8.5-10.1 [facility] Chloride [Moles/Vol] 107 mmol/L 98-107 [facility] Cholesterol [Mass/Vol] 315 mg/dL High <=200 [facility] Cholesterol in HDL [Mass/Vol] 99 mg/dL High 40-60 [facility] Comment on above: > or =60 mg/dl - LOW CARDIOVASCULAR RISK<40 mg/dl - HIGH CARDIOVASCULAR RISK CO2 [Moles/Vol] 32.2 mmol/L High 21.0-32.0 [facility] Cobalamin (Vitamin B12) [Mass/Vol] 1376 pg/mL Abnormal 232-1245 [facility] Comment on above: Performed at: - [facility] [address] [id number] Director: Bobby Mckeon PhD, Phone: [phone] Creatinine [Mass/Vol] 0.89 mg/dL 0.55-1.02 [facility] Ferritin [Mass/Vol] 363.0 ng/mL High 8.0-252.0 [facility] GFR/1.73 sq M.predicted MDRD (S/P/Bld) [Vol rate/Area] mL/min/{1.73_m2} >=60 mL/min/1.73 m 2 [facility] Glucose [Mass/Vol] 85 mg/dL 74-106 [facility] Iron [Mass/Vol] 121.0 ug/dL 50.0-170.0 [facility] Potassium [Moles/Vol] 4.0 mmol/L 3.5-5.1 [facility] Protein [Mass/Vol] 6.2 g/dL Low 6.4-8.2 [facility] Sodium [Moles/Vol] 144 mmol/L 136-145 [facility] Triglyceride [Mass/Vol] 86 mg/dL <=150 F [facility] Urea nitrogen [Mass/Vol] 31.0 mg/dL High 7.0-18.0 [facility] Urea nitrogen/Creatinine [Mass ratio] 34.8 mg/mg [facility] Laboratory - Hematology and Cell countson 09-02-2024 ESR (Bld) [Velocity] 3 mm/h <=30 [facility] Immature granulocytes/100 WBC (Bld) 0.0 % 0.0-0.5 [facility] Leukocytes [#/volume] correc tyrone for nucleated erythrocytes in Blood by Automated counon 09-02-2024 WBC corrected for nucl RBC Auto (Bld) [#/Vol] Leukocytes [#/volume] corrected for nucleated erythrocytes in Blood by Automated coun 4.0-11.0 [facility] Lymphocytes Auto (Bld) [#/Vo l]on 09-02-2024 Lymphocytes (Bld) [#/Vol] Lymphocytes [#/volume] in Blood by Automated count 1.2-3.8 [facility] Lymphocytes/100 WBC Auto (Bl d)on 09-02-2024 Lymphocytes/100 WBC (Bld) Lymphocytes/100 leukocytes in Blood by Automated count 20.5-60.0 [facility] MCH Auto (RBC) [Entitic mass ]on 09-02-2024 MCH (RBC) [Entitic mass] MCH [Entitic ma ss] by Automated count 26.7-34.0 [facility] MCHC Auto (RBC) [Mass/Vol]on 09-02-2024 MCHC (RBC) [Mass/Vol] MCHC [Mass/volume] by Automated count 29.9-35.2 [facility] MCV Auto (RBC) [Entitic vol] on 09-02-2024 MCV (RBC) [Entitic vol] MCV [Entitic vol ume] by Automated count 81.0-99.0 [facility] Monocytes Auto (Bld) [#/Vol] on 09-02-2024 Monocytes (Bld) [#/Vol] Automated blood monocyte count 0.3-0.8 [facility] Monocytes/100 WBC Auto (Bld) on 09-02-2024 Monocytes/100 WBC (Bld) Automated monocyte % 1. 7-12.0 [facility] Neutrophils Auto (Bld) [#/Vo l]on 09-02-2024 Neutrophils (Bld) [#/Vol] Neutrophils [#/volume] in Blood by Automated count 1.4-6.5 [facility] Neutrophils/100 WBC Auto (Bl d)on 09-02-2024 Neutrophils/100 WBC (Bld) Automated neutrophil % Low 43.0-75.0 [facility] No Panel Informationon 01-09 -2025 Eosinophils # (Auto) 0.2 10 3/uL 0.0-0.7 [facility] Immature Granulocyte # (Auto) 0.00 10 3/uL 0.00-0.03 [facility] Platelet mean volume Auto (B ld) [Entitic vol]on 09-02-2024 Platelet mean volume (Bld) [Entitic vol] Platelet mean volume [Entitic volume] in Blood by Automated count Low 9.5-13.5 [facility] Platelets Auto (Bld) [#/Vol] on 09-02-2024 Platelets (Bld) [#/Vol] Platelets [#/vol ume] in Blood by Automated count 150-450 [facility] RBC Auto (Bld) [#/Vol]on RBC (Bld) [#/Vol] Erythrocytes [#/volu me] in Blood by Automated count Low 4.20-5.40 [facility] Serum or plasma albumin/glob ulin mass ratioon 09-02-2024 Albumin/Globulin [Mass ratio] Serum or plasma albumin/globulin mass ratio [facility] Serum or plasma anion gap de terminationon 09-02-2024 Anion gap [Moles/Vol] Serum or plasma an ion gap determination [facility] Serum or plasma total choles terol/high density lipoprotein (HDL) cholesterol mass artie 09-02-2024 Cholesterol.total/Choles terol in HDL [Mass ratio] Serum or plasma total cholesterol/high density lipoprotein (HDL) cholesterol mass rat [facility] Comment on above: 3.3 - 4.4 LOW RISK4. 4 - 7.1 AVERAGE RISK7.1 - 11.0 MODERATE RISK>11.0 HIGH RISK 36on 08-13-2024 36 Patients daughter contacted office requesting patient lab orders be faxed to [facility]. Faxed orders to number on their website, . Mailed copies of labs to patient as well. Normal [facility] Laboratory - Chemistry and C hemistry - challengeon 07-16-2024 Bilirubin Ql (U) Negative [facility] Glucose (U) [Mass/Vol] Negative [facility] Ketones Ql (U) Negative [facility] pH (U) 6.5 [pH] [facility] Specific gravity (U) [Rel density] 1.000 [facility] Urobilinogen (U) [Mass/Vol] 0.2 mg/dL [facility] Laboratory - Specimen inform ationon 07-16-2024 Appearance (U) cloudy [facility] Color (U) lightyellow [facility] Laboratory - Urinalysison Leukocyte esterase Test strip Ql (U) Negative [facility] Nitrite Ql (U) Negative [facility] Protein Ql (U) Negative [facility] No Panel Informationon 07-16 Urine Occult Blood Negative [facility] Follow-Upon 05-05-2024 Follow-Up [id number] Carlyle David 1945 F Date Provider Department Center 05/05/2024 [id number] [facility]ASSO I [facility] No family history on file Level of Service:39811 SD OFFICE/OUTPATIENT ESTABLISHED LOW [facility] 20 MIN Reason for Visit and Comments: Follow-up [001754] - 1 headache a few weeks ago. Increased itching for a few months Normal [facility] Basophils Auto (Bld) [#/Vol] on 04-30-2024 Basophils (Bld) [#/Vol] Automated basoph il count 0.0-0.1 [facility] Basophils/100 WBC Auto (Bld) on 04-30-2024 Basophils/100 WBC (Bld) Automated basophil % 0. 2-2.0 [facility] Cholesterol in LDL Calc [Mas s/Vol]on 04-30-2024 Cholesterol in LDL [Mass/Vol] Cholesterol in LDL [Mass/volume] in Serum or Plasma by calculation [facility] Comment on above: <100 mg/dl [id number] 0-129 mg/dl NEAR OR ABOVE [id number] mg/dl BORDERLINE [id number] mg/dl HIGH>190 mg/dl VERY HIGH Cholesterol in VLDL Calc [Ma ss/Vol]on 04-30-2024 Cholesterol in VLDL [Mass/Vol] Cholesterol in VLDL [Mass/volume] in Serum or Plasma by calculation [facility] Eosinophils/100 WBC Auto (Bl d)on 04-30-2024 Eosinophils/100 WBC (Bld) Automated eosinophil % 0.9-7.0 [facility] Erythrocyte distribution wid th Auto (RBC) [Ratio]on 04-30-2024 Erythrocyte distribution width (RBC) [Ratio] Erythrocyte distribution width [Ratio] by Automated count 11.0-15.0 [facility] Estimated glomerular filtrat ion rate (GFR) non- Americanon 04-30-2024 GFR/1.73 sq M.predicted among non-blacks MDRD (S/P/Bld) [Vol rate/Area] Estimated glomerular filtration rate (GFR) non- >=60 [facility] Globulin Calc (S) [Mass/Vol] on 04-30-2024 Globulin (S) [Mass/Vol] Serum globulin measurement by calculation (mass/volume) [facility] Hematocrit Auto (Bld) [Volum e fraction]on 04-30-2024 Hematocrit (Bld) [Volume fraction] Hematocrit [Volume Fraction] of Blood by Automated count 36.0-48.0 [facility] Hemoglobin [Mass/volume] in Bloodon 04-30-2024 Hemoglobin (Bld) [Mass/Vol] Hemoglobin [Mass/volume] in Blood 12.0-16.0 [facility] Laboratory - Chemistry and C hemistry - challengeon 04-30-2024 Albumin [Mass/Vol] 3.3 g/dL Low 3.4-5.0 [facility] ALP [Catalytic activity/Vol] 49 U/L 46-116 [facility] ALT [Catalytic activity/Vol] 29 U/L 14-59 [facility] AST [Catalytic activity/Vol] 23 U/L 15-37 [facility] Bilirubin [Mass/Vol] 0.5 mg/dL 0.2-1.0 [facility] Calcium [Mass/Vol] 9.0 mg/dL 8.5-10.1 [facility] Chloride [Moles/Vol] 105 mmol/L 98-107 [facility] Cholesterol [Mass/Vol] 302 mg/dL High <=200 [facility] Cholesterol in HDL [Mass/Vol] 95 mg/dL High 40-60 [facility] Comment on above: > or =60 mg/dl - LOW CARDIOVASCULAR RISK<40 mg/dl - HIGH CARDIOVASCULAR RISK CO2 [Moles/Vol] 32.1 mmol/L High 21.0-32.0 [facility] Creatinine [Mass/Vol] 0.87 mg/dL 0.55-1.02 [facility] GFR/1.73 sq M.predicted MDRD (S/P/Bld) [Vol rate/Area] mL/min/{1.73_m2} >=60 [facility] Glucose [Mass/Vol] 85 mg/dL 74-106 [facility] Potassium [Moles/Vol] 3.8 mmol/L 3.5-5.1 [facility] Protein [Mass/Vol] 5.9 g/dL Low 6.4-8.2 [facility] Sodium [Moles/Vol] 143 mmol/L 136-145 [facility] Triglyceride [Mass/Vol] 87 mg/dL <=150 F [facility] Urea nitrogen [Mass/Vol] 25.0 mg/dL High 7.0-18.0 [facility] Urea nitrogen/Creatinine [Mass ratio] 28.7 mg/mg [facility] Laboratory - Hematology and Cell countson 04-30-2024 ESR (Bld) [Velocity] 4 mm/h <=30 [facility] Immature granulocytes/100 WBC (Bld) 0.2 % 0.0-0.5 [facility] Leukocytes [#/volume] correc tyrone for nucleated erythrocytes in Blood by Automated counon 04-30-2024 WBC corrected for nucl RBC Auto (Bld) [#/Vol] Leukocytes [#/volume] corrected for nucleated erythrocytes in Blood by Automated coun 4.0-11.0 [facility] Lymphocytes Auto (Bld) [#/Vo l]on 04-30-2024 Lymphocytes (Bld) [#/Vol] Lymphocytes [#/volume] in Blood by Automated count 1.2-3.8 [facility] Lymphocytes/100 WBC Auto (Bl d)on 04-30-2024 Lymphocytes/100 WBC (Bld) Lymphocytes/100 leukocytes in Blood by Automated count 20.5-60.0 [facility] MCH Auto (RBC) [Entitic mass ]on 04-30-2024 MCH (RBC) [Entitic mass] MCH [Entitic ma ss] by Automated count 26.7-34.0 [facility] MCHC Auto (RBC) [Mass/Vol]on 04-30-2024 MCHC (RBC) [Mass/Vol] MCHC [Mass/volume] by Automated count 29.9-35.2 [facility] MCV Auto (RBC) [Entitic vol] on 04-30-2024 MCV (RBC) [Entitic vol] MCV [Entitic vol ume] by Automated count 81.0-99.0 [facility] Monocytes Auto (Bld) [#/Vol] on 04-30-2024 Monocytes (Bld) [#/Vol] Automated blood monocyte count 0.3-0.8 [facility] Monocytes/100 WBC Auto (Bld) on 04-30-2024 Monocytes/100 WBC (Bld) Automated monocyte % 1. 7-12.0 [facility] Neutrophils Auto (Bld) [#/Vo l]on 04-30-2024 Neutrophils (Bld) [#/Vol] Neutrophils [#/volume] in Blood by Automated count 1.4-6.5 [facility] Neutrophils/100 WBC Auto (Bl d)on 04-30-2024 Neutrophils/100 WBC (Bld) Automated neutrophil % Low 43.0-75.0 [facility] No Panel Informationon 04-30 Eosinophils # (Auto) 0.2 10 3/uL 0.0-0.7 [facility] Immature Granulocyte # (Auto) 0.01 10 3/uL 0.00-0.03 [facility] Platelet mean volume Auto (B ld) [Entitic vol]on 04-30-2024 Platelet mean volume (Bld) [Entitic vol] Platelet mean volume [Entitic volume] in Blood by Automated count Low 9.5-13.5 [facility] Platelets Auto (Bld) [#/Vol] on 04-30-2024 Platelets (Bld) [#/Vol] Platelets [#/vol ume] in Blood by Automated count 150-450 [facility] RBC Auto (Bld) [#/Vol]on RBC (Bld) [#/Vol] Erythrocytes [#/volu me] in Blood by Automated count Low 4.20-5.40 [facility] Serum or plasma albumin/glob ulin mass ratioon 04-30-2024 Albumin/Globulin [Mass ratio] Serum or plasma albumin/globulin mass ratio [facility] Serum or plasma anion gap de terminationon 04-30-2024 Anion gap [Moles/Vol] Serum or plasma an ion gap determination [facility] Serum or plasma total choles terol/high density lipoprotein (HDL) cholesterol mass artie 04-30-2024 Cholesterol.total/Choles terol in HDL [Mass ratio] Serum or plasma total cholesterol/high density lipoprotein (HDL) cholesterol mass rat [facility] Comment on above: 3.3 - 4.4 LOW RISK4. 4 - 7.1 AVERAGE RISK7.1 - 11.0 MODERATE RISK>11.0 HIGH RISK Basophils Auto (Bld) [#/Vol] on 03-05-2024 Basophils (Bld) [#/Vol] 0.0 10 3/uL 0.0-0.1 [facility] Basophils/100 WBC Auto (Bld) on 03-05-2024 Basophils/100 WBC (Bld) 0.6 % 0.2-2.0 F [facility] Eosinophils/100 WBC Auto (Bl d)on 03-05-2024 Eosinophils/100 WBC (Bld) 1.7 % 0.9-7.0 [facility] Erythrocyte distribution wid th Auto (RBC) [Ratio]on 03-05-2024 Erythrocyte distribution width (RBC) [Ratio] 13.7 % 11.0-15.0 [facility] Hematocrit Auto (Bld) [Volum e fraction]on 03-05-2024 Hematocrit (Bld) [Volume fraction] 37.7 % 36.0-48.0 [facility] Hemoglobin [Mass/volume] in Bloodon 03-05-2024 Hemoglobin (Bld) [Mass/Vol] 12.2 g/dL 12.0-16.0 [facility] Iron binding capacity [Mass/ volume] in Serum or Plasmaon 03-05-2024 Iron binding capacity [Mass/Vol] 231.0 ug/dL Low 250.0-450.0 [facility] Iron saturation [Mass Fracti on] in Serum or Plasmaon 03-05-2024 Iron saturation [Mass fraction] 44.6 % [facility] Laboratory - Chemistry and C hemistry - challengeon 03-05-2024 Ferritin [Mass/Vol] 234.0 ng/mL 8.0-252.0 [facility] Iron [Mass/Vol] 103.0 ug/dL 50.0-170.0 [facility] Laboratory - Hematology and Cell countson 03-05-2024 Immature granulocytes/100 WBC (Bld) 0.3 % 0.0-0.5 [facility] Leukocytes [#/volume] correc tyrone for nucleated erythrocytes in Blood by Automated counon 03-05-2024 WBC corrected for nucl RBC Auto (Bld) [#/Vol] 6.9 10 3/uL 4.0-11.0 [facility] Lymphocytes Auto (Bld) [#/Vo l]on 03-05-2024 Lymphocytes (Bld) [#/Vol] 3.8 10 3/uL 1.2-3.8 [facility] Lymphocytes/100 WBC Auto (Bl d)on 03-05-2024 Lymphocytes/100 WBC (Bld) 54.9 % 20.5-60.0 [facility] MCH Auto (RBC) [Entitic mass ]on 03-05-2024 MCH (RBC) [Entitic mass] 31.4 pg 26.7-34.0 [facility] MCHC Auto (RBC) [Mass/Vol]on 03-05-2024 MCHC (RBC) [Mass/Vol] 32.4 g/dL 29.9-35.2 [facility] MCV Auto (RBC) [Entitic vol] on 03-05-2024 MCV (RBC) [Entitic vol] 96.9 fL 81.0-99.0 F [facility] Monocytes Auto (Bld) [#/Vol] on 03-05-2024 Monocytes (Bld) [#/Vol] 0.6 10 3/uL 0.3-0.8 [facility] Monocytes/100 WBC Auto (Bld) on 03-05-2024 Monocytes/100 WBC (Bld) 8.7 % 1.7-12.0 [facility] Neutrophils Auto (Bld) [#/Vo l]on 03-05-2024 Neutrophils (Bld) [#/Vol] 2.3 10 3/uL 1.4-6.5 [facility] Neutrophils/100 WBC Auto (Bl d)on 03-05-2024 Neutrophils/100 WBC (Bld) 33.8 % Low 43.0-75.0 [facility] No Panel Informationon 03-05 Eosinophils # (Auto) 0.1 10 3/uL 0.0-0.7 [facility] Immature Granulocyte # (Auto) 0.02 10 3/uL 0.00-0.03 [facility] Platelet mean volume Auto (B ld) [Entitic vol]on 03-05-2024 Platelet mean volume (Bld) [Entitic vol] 8.7 fL Low 9.5-13.5 [facility] Platelets Auto (Bld) [#/Vol] on 03-05-2024 Platelets (Bld) [#/Vol] 289 10 3/uL 150-450 [facility] RBC Auto (Bld) [#/Vol]on RBC (Bld) [#/Vol] 3.89 10 6/uL Low 4.20-5.40 [facility] Follow-Upon 01-28-2024 Follow-Up [id number] Carlyle David 1945 F Date Provider Department Center 01/28/2024 [id number] JASSO I [facility] No family history on file Level of Service:72095 SD OFFICE/OUTPATIENT ESTABLISHED MOD MDM 30 MIN Reason for Visit and Comments: Follow-up [642051] - [facility]. Neck pain with cramping Normal [facility] Basophils Auto (Bld) [#/Vol] on 12-29-2023 Basophils (Bld) [#/Vol] 0.0 10 3/uL 0.0-0.1 [facility] Basophils/100 WBC Auto (Bld) on 12-29-2023 Basophils/100 WBC (Bld) 0.3 % 0.2-2.0 F [facility] Eosinophils/100 WBC Auto (Bl d)on 12-29-2023 Eosinophils/100 WBC (Bld) 0.6 % 0.9-7.0 [facility] Erythrocyte distribution wid th Auto (RBC) [Ratio]on 12-29-2023 Erythrocyte distribution width (RBC) [Ratio] 14.8 % 11.0-15.0 [facility] Hematocrit Auto (Bld) [Volum e fraction]on 12-29-2023 Hematocrit (Bld) [Volume fraction] 39.8 % 36.0-48.0 [facility] Hemoglobin [Mass/volume] in Bloodon 12-29-2023 Hemoglobin (Bld) [Mass/Vol] 12.6 g/dL 12.0-16.0 [facility] Iron binding capacity [Mass/ volume] in Serum or Plasmaon 12-29-2023 Iron binding capacity [Mass/Vol] 241.0 ug/dL 250.0-450.0 [facility] Iron saturation [Mass Fracti on] in Serum or Plasmaon 12-29-2023 Iron saturation [Mass fraction] 51.5 % [facility] Laboratory - Chemistry and C hemistry - challengeon 12-29-2023 Iron [Mass/Vol] 124.0 ug/dL 50.0-170.0 [facility] Laboratory - Hematology and Cell countson 12-29-2023 ESR (Bld) [Velocity] 5 mm/h <=30 [facility] Immature granulocytes/100 WBC (Bld) 0.8 % 0.0-0.5 [facility] Leukocytes [#/volume] correc tyrone for nucleated erythrocytes in Blood by Automated counon 12-29-2023 WBC corrected for nucl RBC Auto (Bld) [#/Vol] 8.9 10 3/uL 4.0-11.0 [facility] Lymphocytes Auto (Bld) [#/Vo l]on 12-29-2023 Lymphocytes (Bld) [#/Vol] 4.4 10 3/uL 1.2-3.8 [facility] Lymphocytes/100 WBC Auto (Bl d)on 12-29-2023 Lymphocytes/100 WBC (Bld) 49.7 % 20.5-60.0 [facility] MCH Auto (RBC) [Entitic mass ]on 12-29-2023 MCH (RBC) [Entitic mass] 31.0 pg 26.7-34.0 [facility] MCHC Auto (RBC) [Mass/Vol]on 12-29-2023 MCHC (RBC) [Mass/Vol] 31.7 g/dL 29.9-35.2 [facility] MCV Auto (RBC) [Entitic vol] on 12-29-2023 MCV (RBC) [Entitic vol] 98.0 fL 81.0-99.0 F [facility] Monocytes Auto (Bld) [#/Vol] on 12-29-2023 Monocytes (Bld) [#/Vol] 0.7 10 3/uL 0.3-0.8 [facility] Monocytes/100 WBC Auto (Bld) on 12-29-2023 Monocytes/100 WBC (Bld) 7.3 % 1.7-12.0 F [facility] Neutrophils Auto (Bld) [#/Vo l]on 12-29-2023 Neutrophils (Bld) [#/Vol] 3.7 10 3/uL 1.4-6.5 [facility] Neutrophils/100 WBC Auto (Bl d)on 12-29-2023 Neutrophils/100 WBC (Bld) 41.3 % 43.0-75.0 [facility] No Panel Informationon 12-28 Eosinophils # (Auto) 0.1 10 3/uL 0.0-0.7 [facility] Immature Granulocyte # (Auto) 0.07 10 3/uL 0.00-0.03 [facility] Platelet mean volume Auto (B ld) [Entitic vol]on 12-29-2023 Platelet mean volume (Bld) [Entitic vol] 8.3 fL 9.5-13.5 [facility] Platelets Auto (Bld) [#/Vol] on 12-29-2023 Platelets (Bld) [#/Vol] 262 10 3/uL 150-450 [facility] RBC Auto (Bld) [#/Vol]on RBC (Bld) [#/Vol] 4.06 10 6/uL 4.20-5.40 [facility] Basophils Auto (Bld) [#/Vol] on 10-30-2023 Basophils (Bld) [#/Vol] 0.0 10 3/uL 0.0-0.1 [facility] Basophils/100 WBC Auto (Bld) on 10-30-2023 Basophils/100 WBC (Bld) 0.2 % 0.2-2.0 F [facility] Blood Mycobacterium tubercul osis tuberculin stimulated gamma interferon detectionon 10-30-2023 M. tuberculosis tuberculin stim IFN-g Ql (Bld) Comment . [facility] Comment on above: QuantiFERON-TB Gold [...] IFN-g Ql (Bld) 0.03 [IU]/mL . [facility] Blood mitogen stimulated hussain ma interferon measurement (units/volume)on 10-30-2023 Mitogen stimulated gamma interferon Qn (Bld) >10.00 [IU]/mL . [facility] Cholesterol in LDL Calc [Mas s/Vol]on 10-30-2023 Cholesterol in LDL [Mass/Vol] 161.0 mg/dL [facility] Comment on above: <100 mg/dl [id number] 0-129 mg/dl NEAR OR ABOVE LTRDBIS039-145 mg/dl BORDERLINE PHNE652-532 mg/dl HIGH>190 mg/dl VERY HIGH Cholesterol in VLDL Calc [Ma ss/Vol]on 10-30-2023 Cholesterol in VLDL [Mass/Vol] 12.4 mg/dL [facility] Eosinophils/100 WBC Auto (Bl d)on 10-30-2023 Eosinophils/100 WBC (Bld) 0.4 % 0.9-7.0 [facility] Erythrocyte distribution wid th Auto (RBC) [Ratio]on 10-30-2023 Erythrocyte distribution width (RBC) [Ratio] 19.2 % 11.0-15.0 [facility] Estimated glomerular filtrat ion rate (GFR) non- Americanon 10-30-2023 GFR/1.73 sq M.predicted among non-blacks MDRD (S/P/Bld) [Vol rate/Area] mL/min/{1.73_m2} >=60 [facility] Globulin Calc (S) [Mass/Vol] on 10-30-2023 Globulin (S) [Mass/Vol] 3.4 g/dL F [facility] Hematocrit Auto (Bld) [Volum e fraction]on 10-30-2023 Hematocrit (Bld) [Volume fraction] 34.9 % 36.0-48.0 [facility] Hemoglobin [Mass/volume] in Bloodon 10-30-2023 Hemoglobin (Bld) [Mass/Vol] 10.8 g/dL 12.0-16.0 [facility] Hepatitis C virus IgG Ab [Pr esence] in Serum or Plasma by Immunoassayon 10-30-2023 HCV IgG IA Ql Non-Reactive Non Reactive [facility] Comment on above: HCV antibody alone d oes not differentiate betweenpreviously resolved infection and active infection.Equivocal and Reactive HCV antibody results should befollowed up with an HCV RNA test to support the diagnosisof active HCV infection. Laboratory - Chemistry and C hemistry - challengeon 10-30-2023 Albumin [Mass/Vol] 2.9 g/dL 3.4-5.0 [facility] ALP [Catalytic activity/Vol] 60 U/L 46-116 [facility] ALT [Catalytic activity/Vol] 24 U/L 14-59 [facility] AST [Catalytic activity/Vol] 10 U/L 15-37 [facility] Bilirubin [Mass/Vol] 0.4 mg/dL 0.2-1.0 [facility] Calcium [Mass/Vol] 8.3 mg/dL 8.5-10.1 [facility] Chloride [Moles/Vol] 102 mmol/L 98-107 [facility] Cholesterol [Mass/Vol] 308 mg/dL <=200 [facility] Cholesterol in HDL [Mass/Vol] 135 mg/dL 40-60 [facility] Comment on above: > or =60 mg/dl - LOW CARDIOVASCULAR RISK<40 mg/dl - HIGH CARDIOVASCULAR RISK CO2 [Moles/Vol] 30.3 mmol/L 21.0-32.0 [facility] Creatinine [Mass/Vol] 0.78 mg/dL 0.55-1.02 [facility] GFR/1.73 sq M.predicted MDRD (S/P/Bld) [Vol rate/Area] mL/min/{1.73_m2} >=60 [facility] Glucose [Mass/Vol] 71 mg/dL 74-106 [facility] Potassium [Moles/Vol] 4.1 mmol/L 3.5-5.1 [facility] Protein [Mass/Vol] 6.3 g/dL 6.4-8.2 [facility] Sodium [Moles/Vol] 140 mmol/L 136-145 [facility] Triglyceride [Mass/Vol] 62 mg/dL <=150 F [facility] Urea nitrogen [Mass/Vol] 23.0 mg/dL 7.0-18.0 [facility] Urea nitrogen/Creatinine [Mass ratio] 29.5 mg/mg [facility] Laboratory - Hematology and Cell countson 10-30-2023 ESR (Bld) [Velocity] 21 mm/h <=30 [facility] Immature granulocytes/100 WBC (Bld) 1.8 % 0.0-0.5 [facility] Leukocytes [#/volume] correc tyrone for nucleated erythrocytes in Blood by Automated counon 10-30-2023 WBC corrected for nucl RBC Auto (Bld) [#/Vol] 11.4 10 3/uL 4.0-11.0 [facility] Lymphocytes Auto (Bld) [#/Vo l]on 10-30-2023 Lymphocytes (Bld) [#/Vol] 3.9 10 3/uL 1.2-3.8 [facility] Lymphocytes/100 WBC Auto (Bl d)on 10-30-2023 Lymphocytes/100 WBC (Bld) 34.2 % 20.5-60.0 [facility] MCH Auto (RBC) [Entitic mass ]on 10-30-2023 MCH (RBC) [Entitic mass] 29.4 pg 26.7-34.0 [facility] MCHC Auto (RBC) [Mass/Vol]on 10-30-2023 MCHC (RBC) [Mass/Vol] 30.9 g/dL 29.9-35.2 [facility] MCV Auto (RBC) [Entitic vol] on 10-30-2023 MCV (RBC) [Entitic vol] 95.1 fL 81.0-99.0 F [facility] Monocytes Auto (Bld) [#/Vol] on 10-30-2023 Monocytes (Bld) [#/Vol] 0.8 10 3/uL 0.3-0.8 [facility] Monocytes/100 WBC Auto (Bld) on 10-30-2023 Monocytes/100 WBC (Bld) 7.3 % 1.7-12.0 F [facility] Mycobacterium tuberculosis s timulated gamma interferon [Interpretation] in Blood Qualon 10-30-2023 M. tuberculosis stim IFN-g Ql (Bld) [Interp] Negative Negative [facility] Comment on above: No response to M tub erculosis antigens detected.Infection with M tuberculosis is unlikely, but high riskindividuals should be considered for additional testing(ATS/IDSA/CDC Clinical Practice Guidelines, 2017). Thereference range is an Antigen minus Nil result of <0.35IU/mL.Chemiluminescence immunoassay methodologyPerformed at: [facility] [id number] [place] [address] [id number] Director: Bobby Mckeon PhD, Phone: [phone] Neutrophils Auto (Bld) [#/Vo l]on 10-30-2023 Neutrophils (Bld) [#/Vol] 6.4 10 3/uL 1.4-6.5 [facility] Neutrophils/100 WBC Auto (Bl d)on 10-30-2023 Neutrophils/100 WBC (Bld) 56.1 % 43.0-75.0 [facility] No Panel Informationon 10-29 Eosinophils # (Auto) 0.0 10 3/uL 0.0-0.7 [facility] Hepatitis B Core Total Antibody Negative Negative [facility] Comment on above: Performed at: [facility] [id number] [place] [address] [id number] Director: Bobby Mckeon PhD, Phone: [phone] Immature Granulocyte # (Auto) 0.20 10 3/uL 0.00-0.03 [facility] Miscellaneous Test COMMENT . [facility] Comment on above: Test Ordered: [id number] Hep Be AgHep Be Ag Negative CB Reference Range: NegativePerformed at: [facility] - [facility] [id number] [place], [place] [id number] Director: Bobby Mckeon PhD, Phone: [phone] TB Test (QFT) Incubation See comment . [facility] Comment on above: Incubation performed . Reference Range: . Platelet mean volume Auto (B ld) [Entitic vol]on 10-30-2023 Platelet mean volume (Bld) [Entitic vol] 8.2 fL 9.5-13.5 [facility] Platelets Auto (Bld) [#/Vol] on 10-30-2023 Platelets (Bld) [#/Vol] 287 10 3/uL 150-450 [facility] RBC Auto (Bld) [#/Vol]on RBC (Bld) [#/Vol] 3.67 10 6/uL 4.20-5.40 [facility] Serum or plasma albumin/glob ulin mass ratioon 10-30-2023 Albumin/Globulin [Mass ratio] 0.9 {ratio} [facility] Serum or plasma anion gap de terminationon 10-30-2023 Anion gap [Moles/Vol] 11.8 mmol/L [facility] Serum or plasma total choles terol/high density lipoprotein (HDL) cholesterol mass artie 10-30-2023 Cholesterol.total/Choles terol in HDL [Mass ratio] 2.3 {ratio} [facility] Comment on above: 3.3 - 4.4 LOW RISK4. 4 - 7.1 AVERAGE RISK7.1 - 11.0 MODERATE RISK>11.0 HIGH RISK Whole blood measurement of M ycobacterium tuberculosis stimulated gamma interferon relon 10-30-2023 M. tuberculosis stim IFN-g by CD4+ CD8+ T-cells corrected for background Qn (Bld) 0.03 [IU]/mL . [facility] BASIC METABOLIC PANLon 09-26 Anion gap [Moles/Vol] 8 mmol/L Normal 5-15 [facility] Comment on above: Performed By: #### C BCA, CMP, 1987-12, FEPR, 2276-4, 2284-8, 03621-9, 2132-9, 83522-9, 07181-9, 5130-0, 03317-0, 57434-6, 07394-6, 3357-1, 8092-9, 85974-9, 75815-2, 40895-3, 02947-7, 76546-1 #### [facility] ([id number]) [address], [address] [place] [address] Calcium [Mass/Vol] 7.9 mg/dL Low 8.5-10.5 [facility] Comment on above: Performed By: #### C BCA, CMP, 1987-12, FEPR, 2276-4, 2284-8, 95694-7, 2132-9, 08104-4, 68378-0, 5130-0, 30798-7, 35010-4, 05113-0, 3357-1, 8092-9, 87092-7, 26364-8, 44380-6, 22056-7, 51535-1 #### [facility] ([id number]) [address], [address] [place] [address] Chloride [Moles/Vol] 103 mmol/L Normal 98-109 [facility] Comment on above: Performed By: #### C BCA, CMP, 1987-12, FEPR, 2276-4, 2284-8, 89783-1, 2132-9, 97028-8, 11794-5, 5130-0, 77645-7, 21173-7, 62716-9, 3357-1, 8092-9, 41098-9, 68677-9, 06974-8, 37952-0, 02397-6 #### [facility] ([id number]) [address], [address] [place] [address] CO2 [Moles/Vol] 30 mmol/L Normal 22-32 [facility] Comment on above: Performed By: #### C BCA, CMP, 1987-12, FEPR, 2276-4, 2284-8, 36394-7, 2132-9, 47251-1, 72444-1, 5130-0, 45297-2, 97363-7, 98202-6, 3357-1, 8092-9, 33425-0, 59158-7, 33109-6, 85973-5, 98340-0 #### [facility] ([id number]) [address], [address] [place] [address] Creatinine [Mass/Vol] 0.65 mg/dL Normal 0.40-1.00 [facility] Comment on above: Result Comment: METH OD TRACEABLE TO IDMS STANDARD Performed By: #### C BCA, CMP, 1987-12, FEPR, 2275-4, 2284-8, 93369-8, 2132-9, 00931-3, 45259-8, 5130-0, 16362-4, 90444-5, 08044-1, 3357-1, 8092-9, 46692-4, 98634-4, 39921-5, 16282-0, 59273-1 #### [facility] ([id number]) [address], [address] [place] [address] eGFR (CKD-EPI) NON-RACE DEPENDENT >90 Normal >59 [facility] Comment on above: Result Comment: Reported eGFR is based on the CKD-EPI 2020 equation that does not use a race coefficient. Performed By: #### C BCA, CMP, 1987-12, FEPR, 2276-4, 2284-8, 97041-3, 2132-9, 51072-0, 15722-6, 5130-0, 94402-1, 69658-3, 44024-6, 3357-1, 8092-9, 84328-1, 12001-5, 64417-4, 88195-0, 98789-0 #### [facility] ([id number]) [address], [address] [place] [address] Glucose [Mass/Vol] 79 mg/dL Normal 65-99 [facility] Comment on above: Performed By: #### C BCA, CMP, 1987-12, FEPR, 2276-4, 2284-8, 19441-9, 2132-9, 05023-3, 37669-6, 5130-0, 88902-1, 75949-2, 45037-1, 3357-1, 8092-9, 76468-7, 78530-3, 73320-3, 70317-6, 26337-6 #### [facility] ([id number]) [address], [address] [place] [address] Potassium [Moles/Vol] 3.9 mmol/L Normal 3.5-5.0 [facility] Comment on above: Performed By: #### C BCA, CMP, 1987-12, FEPR, 227-4, 2284-8, 77870-9, 2132-9, 25702-0, 20270-3, 5130-0, 47735-6, 91701-4, 58301-2, 3357-1, 8092-9, 43286-5, 18397-8, 60085-1, 15134-2, 97679-2 #### [facility] ([id number]) [address], [address] [place] [address] Sodium [Moles/Vol] 141 mmol/L Normal 134-146 [facility] Comment on above: Performed By: #### C BCA, CMP, 1987-12, FEPR, 227-4, 2284-8, 24849-9, 2132-9, 86311-6, 66371-8, 5130-0, 30777-3, 05720-8, 85515-3, 3357-1, 8092-9, 19857-1, 97448-8, 20780-8, 31449-3, 55168-9 #### [facility] ([id number]) [address] [place] [address], [address] [place] [address] Urea nitrogen [Mass/Vol] 26 mg/dL Normal 5-27 [facility] Comment on above: Performed By: #### C BCA, CMP, 1988-5, FEPR, 2276-4, 2284-8, 00782-2, 2132-9, 72658-3, 43507-8, 5130-0, 47249-0, 63850-4, 66437-9, 3357-1, 8092-9, 74713-7, 66572-0, 76944-2, 26099-6, 80734-0 #### [facility] ([id number]) [address] [place] [address], [address] [place] [address] Basic Metabolic Panelon Anion gap [Moles/Vol] 8 mmol/L 5 - 15 mmol/L [facility] Calcium [Mass/Vol] 7.9 mg/dL Low 8.5 - 10. 5 mg/dL [facility] Chloride [Moles/Vol] 103 mmol/L 98 - 10 9 mmol/L [facility] CO2 [Moles/Vol] 30 mmol/L 22 - 32 mmol/L [facility] Creatinine [Mass/Vol] 0.65 mg/dL 0.40 - 1.00 mg/dL [facility] Comment on above: METHOD TRACEABLE TO IDCT STANDARD eGFR (CKD-EPI)non-race dependent - PINF [facility] Comment on above: Reported eGFR is based on the CKD-EPI 2020 equation that does not use a race coefficient. Glucose [Mass/Vol] 79 mg/dL 65 - 99 mg/dL [facility] Interpretation and review of laboratory results Abnormal [facility] Potassium [Moles/Vol] 3.9 mmol/L 3.5 - 5.0 mmol/L [facility] Sodium [Moles/Vol] 141 mmol/L 134 - 146 mmol/L [facility] Urea nitrogen [Mass/Vol] 26 mg/dL 5 - 27 mg/dL [facility] CBC AND AUTO DIFFon 09-26-19 24 ABSOLUTE BASOPHIL 0.1 X10E9/L Normal 0.0-0.2 [facility] Comment on above: Performed By: #### C BCA, CMP, 1987-12, FEPR, 2276-4, 2284-8, 48703-0, 2132-9, 54657-5, 30266-1, 5130-0, 77433-2, 99234-9, 92556-4, 3357-1, 8092-9, 87238-3, 07288-4, 63139-7, 59494-4, 65900-9 #### [facility] ([id number]) [address], [address] [place] [address] ABSOLUTE NEUTROPHIL 7.1 X10E9/L High 1.5-6.6 [facility] Comment on above: Performed By: #### C BCA, CMP, 1987-12, FEPR, 2275-4, 2284-8, 67006-8, 2132-9, 93097-5, 81124-7, 5130-0, 57410-8, 37700-9, 10112-8, 3357-1, 8092-9, 32270-1, 88083-0, 31121-8, 02421-8, 24128-0 #### [facility] ([id number]) [address], [address] [place] [address] Basophils/100 WBC (Bld) 0.8 % Normal [facility] Comment on above: Performed By: #### C BCA, CMP, 1987-12, FEPR, 227-4, 2284-8, 23779-3, 2132-9, 57727-2, 51859-8, 5130-0, 07118-1, 00107-4, 20714-1, 3357-1, 8092-9, 94782-1, 00243-5, 96030-8, 23110-3, 37628-6 #### [facility] ([id number]) [address], [address] [place] [address] Eosinophils (Bld) [#/Vol] 0.0 10*3/uL Normal 0.0-0.4 [facility] Comment on above: Performed By: #### C SHARATH, KELVIN, 1987-12, FEPR, 2276-4, 2284-8, 16829-9, 2132-9, 00470-2, 35898-8, 5130-0, 05132-0, 71521-2, 20172-5, 3357-1, 8092-9, 34319-1, 41088-7, 67231-4, 21937-6, 10732-3 #### [facility] ([id number]) [address] [place] [address], [address] [place] [address] Eosinophils/100 WBC (Bld) 0.0 % Normal [facility] Comment on above: Performed By: #### C SHARATH, [facility], 1987-12, FEPR, 2275-4, 2284-8, 72811-0, 2132-9, 26433-0, 15275-9, 5130-0, 96504-5, 03836-0, 24278-9, 3357-1, 8092-9, 13698-8, 75320-8, 10220-7, 02612-7, 24937-0 #### [facility] ([id number]) [address], [address] [place] [address] Erythrocyte distribution width (RBC) [Ratio] 14.4 % Normal 11.5-15.0 [facility] Comment on above: Performed By: #### C SHARATH, CMP, 1987-12, FEPR, 227-4, 2284-8, 79052-2, 2132-9, 59355-5, 88619-3, 5130-0, 24177-4, 18592-2, 71543-3, 3357-1, 8092-9, 40813-6, 11536-3, 30222-4, 41046-9, 91129-9 #### [facility] ([id number]) [address], [address] [place] [address] Hematocrit (Bld) [Volume fraction] 24.8 % Low 35-47 [facility] Comment on above: Performed By: #### C SHARATH, KELVIN, 1987-12, FEPR, 2276-4, 2284-8, 96725-4, 2132-9, 44724-6, 06204-4, 5130-0, 28553-2, 96056-2, 47103-9, 3357-1, 8092-9, 42617-7, 68739-3, 55721-0, 84438-5, 14668-4 #### [facility] ([id number]) [address], [address] [place] [address] Hemoglobin (Bld) [Mass/Vol] 8.2 g/dL Low 11.7-15.5 [facility] Comment on above: Performed By: #### C SHARATH, KELVIN, 1987-12, FEPR, 2275-4, 2284-8, 73494-3, 2132-9, 13647-1, 83696-2, 5130-0, 74098-7, 16993-1, 68159-4, 3357-1, 8092-9, 56957-4, 52526-6, 96525-0, 89917-5, 48515-3 #### [facility] ([id number]) [address], [address] [place] [address] Lymphocytes (Bld) [#/Vol] 2.4 10*3/uL Normal 1.0-3.5 [facility] Comment on above: Performed By: #### C SHARATH, CMP, 1987-12, FEPR, 227-4, 2284-8, 72704-3, 2132-9, 98129-8, 35428-3, 5130-0, 71144-0, 10193-6, 49241-6, 3357-1, 8092-9, 35986-1, 56788-7, 65537-7, 80087-5, 11856-9 #### [facility] ([id number]) [address], [address] [place] [address] Lymphocytes/100 WBC (Bld) 22.6 % Normal [facility] Comment on above: Performed By: #### C BCA, CMP, 1987-12, FEPR, 2276-4, 2284-8, 46741-3, 2132-9, 16643-6, 00033-3, 5130-0, 52535-9, 94849-6, 64498-3, 3357-1, 8092-9, 85820-8, 65426-0, 25385-7, 79495-3, 00466-1 #### [facility] ([id number]) [address], [address] [place] [address] MCH (RBC) [Entitic mass] 28.5 pg Normal 27-34 [facility] Comment on above: Performed By: #### C BCA, CMP, 1987-12, FEPR, 227-4, 2284-8, 05283-0, 2132-9, 13075-3, 73177-9, 5130-0, 85111-2, 30857-6, 02589-9, 3357-1, 8092-9, 85828-4, 72151-6, 00667-5, 95810-7, 58299-2 #### [facility] ([id number]) [address], [address] [place] [address] MCHC (RBC) [Mass/Vol] 33.1 g/dL Normal 32-36 [facility] Comment on above: Performed By: #### C BCA, CMP, 1987-12, FEPR, 2276-4, 2284-8, 70364-1, 2132-9, 96631-1, 68329-7, 5130-0, 58802-4, 36255-8, 36398-7, 3357-1, 8092-9, 91625-2, 23673-8, 38914-8, 56850-9, 38162-7 #### [facility] ([id number]) [address], [address] [place] [address] MCV (RBC) [Entitic vol] 86 fL Normal 80-100 P [facility] Comment on above: Performed By: #### C BCA, CMP, 1987-12, FEPR, 2275-4, 2283-8, 80813-8, 2131-9, 72902-5, 18415-9, 5130-0, 15366-7, 05229-3, 66655-6, 3357-1, 8092-9, 06430-6, 45361-1, 48669-1, 80492-0, 55352-8 #### [facility] ([id number]) [address], [address] [place] [address] Monocytes (Bld) [#/Vol] 1.0 10*3/uL High 0-0.9 [facility] Comment on above: Performed By: #### C BCA, CMP, 1987-12, FEPR, 2275-, 2283-8, 22377-6, 2131-9, 10369-4, 74176-0, 5130-0, 24112-5, 26366-7, 25269-2, 3357-1, 8092-9, 21668-1, 07529-2, 30465-4, 01615-8, 16397-3 #### [facility] ([id number]) [address], [address] [place] [address] Monocytes/100 WBC (Bld) 9.0 % Normal [facility] Comment on above: Performed By: #### C BCA, CMP, 1987-12, FEPR, 227-4, 2284-8, 03381-4, 2132-9, 68552-2, 26036-5, 5130-0, 01053-2, 35929-5, 95378-1, 3357-1, 8092-9, 85116-8, 06613-9, 96367-6, 55296-5, 94391-9 #### [facility] ([id number]) [address], [address] [place] [address] Neutrophils/100 WBC (Bld) 67.6 % Normal [facility] Comment on above: Performed By: #### C SHARATH, CMP, 1987-12, FEPR, 2275-4, 2283-8, 12494-8, 2132-9, 63703-2, 32807-5, 5130-0, 83271-5, 15806-8, 71739-5, 3357-1, 8092-9, 94438-8, 71167-0, 84435-4, 79220-3, 00679-7 #### [facility] ([id number]) [address], [address] [place] [address] Platelet mean volume (Bld) [Entitic vol] 6.4 fL Low 7-12 [facility] Comment on above: Performed By: #### C SHARATH, CMP, 1987-12, FEPR, 2275-, 2283-8, 54116-0, 2131-9, 69830-1, 40900-8, 5130-0, 38381-0, 96265-2, 53863-5, 3357-1, 8092-9, 00186-8, 79303-6, 34925-9, 10074-1, 30458-3 #### [facility] ([id number]) [address], [address] [place] [address] Platelets (Bld) [#/Vol] 686 10*3/uL High 150-450 [facility] Comment on above: Performed By: #### C BCA, CMP, 1987-12, FEPR, 2276-4, 2284-8, 81753-2, 2132-9, 19947-0, 57654-9, 5130-0, 48571-9, 81209-6, 98709-9, 3357-1, 8092-9, 55346-1, 98942-3, 96474-3, 90061-1, 13219-5 #### [facility] ([id number]) [address], [address] [place] [address] RBC COUNT 2.88 X10E12/L Low 3.80-5.20 [facility] Comment on above: Performed By: #### C SHARATH, CMP, 1987-12, FEPR, 2276-4, 2284-8, 34433-4, 2132-9, 19345-3, 46339-8, 5130-0, 16155-7, 50571-2, 80583-9, 3357-1, 8092-9, 78720-3, 89544-2, 54697-2, 42653-2, 55465-6 #### [facility] ([id number]) [address], [address] [place] [address] WBC (Bld) [#/Vol] 10.5 10*3/uL Normal 4.0-11.0 [facility] Comment on above: Performed By: #### C SHARATH, [facility], 1987-12, FEPR, 2276-4, 2284-8, 76718-5, 2132-9, 58114-9, 66295-4, 5130-0, 62328-2, 05790-9, 25170-6, 3357-1, 8092-9, 14287-0, 78424-4, 96964-8, 97772-3, 97543-3 #### [facility] ([id number]) [address], [address] [place] [address] CBC auto differentialon 02-0 -2023 Basophils (Bld) [#/Vol] 0.1 10*3/uL [facility] Basophils/100 WBC (Bld) 0.8 % P [facility] Eosinophils (Bld) [#/Vol] 0.0 10*3/uL [facility] Eosinophils/100 WBC (Bld) 0.0 % [facility] Erythrocyte distribution width (RBC) [Ratio] 14.4 % 11.5 - 15.0 % [facility] Hematocrit (Bld) [Volume fraction] 24.8 % Low 35 - 47 % [facility] Hemoglobin (Bld) [Mass/Vol] 8.2 g/dL Low 11.7 - 15.5 g/dL [facility] Interpretation and review of laboratory results Abnormal [facility] Lymphocytes (Bld) [#/Vol] 2.4 10*3/uL [facility] Lymphocytes/100 WBC (Bld) 22.6 % [facility] MCH (RBC) [Entitic mass] 28.5 pg 27 - 34 pg [facility] MCHC (RBC) [Mass/Vol] 33.1 g/dL 32 - 3 6 g/dL [facility] MCV (RBC) [Entitic vol] 86 fL 80 - 100 fL [facility] Monocytes (Bld) [#/Vol] 1.0 10*3/uL High [facility] Monocytes/100 WBC (Bld) 9.0 % P [facility] Neutrophils (Bld) [#/Vol] 7.1 10*3/uL High [facility] Neutrophils/100 WBC (Bld) 67.6 % [facility] Platelet mean volume (Bld) [Entitic vol] 6.4 fL Low 7 - 12 fL [facility] Platelets (Bld) [#/Vol] 686 10*3/uL [place] [facility] RBC (Bld) [#/Vol] 2.88 10*6/uL Low [facility] WBC corrected for nucl RBC Auto (Bld) [#/Vol] 10.5 [facility] Clinical Pathology Blood Sme ar Review Clinicalon 09-26-2023 Pathologist review Pathologist comment (Bld) [Interp] NOTE [facility] Comment on above: [facility] [address] [place] [address] Clinical Pathology Report Patient Name:MULUGETAJOSE:1945 (Age: 78)Gender:FTaken:09/23/2023eported:09/26/2023hysician(s):Olga Pan M.D. ([phone])Copy To: Rec. #:[id number]: #[id number] Final Pathologic Diagnosis Peripheral blood smear: Neutrophilic [...] Out hna/09/26/2023Og Martinez M.D. Interpretation performed at [facility], [address] [place] [address], License number: [id number]. Clinical History R29.9. BLOOD SMEAR EVALUATION CBC (09/23/2023 0818): WBC = 12.1 X10E9/L; HGB = 9.1 g/dL; HCT = 27.8%; MCV = 85 fL; PLT = 924 X10E9/L OTHER LAB DATA: Noncontributory. BLOOD SMEAR: Leukocytes: Neutrophilic leukocytosis with cytotoxic changes and lymphocytopenia. Erythrocytes: Moderate normocytic normochromic anemia. Platelets: Thrombocytosis. Specimen(s) Received Blood Smear Review Fee Codes(s): 1; 18713 JAK2 V617F mutationon 2023 JAK2 gene p.Qne978Bpr Molgen Ql (Bld/Tiss) SEE COMMENTS 09/26/2023 10:21 AM [facility] Comment on above: NOTE Test Result Flag Unit RefValue ----- JAK2 V617F Mutation Detection, B JAK2 Result see interpretation JAK2 V617F Mutation Detection, B See Note Peripheral blood, JAK2 V617F mutation analysis: Negative for JAK2 V617F. A negative [id number] test result does not exclude the possibility [...] Food and Drug Administration. Test Performed by: [place] [address] Digital Performance Analyst: Thierry Duran M.D. Ph.D.; CLIA# [id number] JAK2 gene p.Qfe190Lbd Molgen Ql (Bld/Tiss)on 09-26-2023 [facility] Pathologist review Pathologi st comment (Bld) [Interp]on 09-26-2023 [facility] Surgical Pathologyon 024 [facility] [employer] [address] [place] [address] Surgical Pathology Consultation Patient Name:JOSE DAVID:1945 (Age: 78)Gender:FTaken:09/25/19 24Reported:4Phys ician(s):Kristel Reid MD ([phone])Copy To: Rec. #:[id number]: #[id number] Final Pathologic Diagnosis 1. Left temporal artery [...] correlation is suggested. Report Electronically Signed Out [facility]/09/26/2023José Luis Pederson MD Interpretation performed at [facility], [address] [place] [address], License number: [id number]. Clinical History Temporal arteries. Gross Description 1. Received in formalin labeled [place], left temporal artery biopsy is a segment of vasculature, 2 x 0.3 cm. The specimen is sectioned to reveal a pinpoint lumen. Are 3 segments of vasculature ranging from 0.5 cm to 1.2 cm in length by 0.2 cm in diameter. The specimen is submitted entirely in a single cassette. (1,ns,D59-0028-9, m1) . 2. Received in formalin labeled [place], right temporal artery biopsy are 3 segments of vasculature ranging from 0.5 cm to 1.2 cm in length by 0.2 cm in diameter. The segments are sectioned to reveal pinpoint lumens. The specimen are submitted entirely in cassettes A-B. (2,ns,[id number], m1) /4RG Specimen(s) Received 1: Left temporal artery biopsy 2: Right temporal artery biopsy Fee Codes(s): 1; 65281, 46305 2; 20526, 43834 [facility] BCR/ABL by PCR w/ Reflexon 0 09-25-2023 Narrative diagnostic report Mol Yaw (Bld/Tiss) [Interp] SEE COMMENTS 09/25/2023 04:24 PM [facility] Comment on above: NOTE Test Result Flag Unit RefValue ----- BCR/ABL1 Reflex, Qual/Quant Specimen Type EDTA WHOLE BLOOD BCR/ABL1 Reflex Result see interpretation Interpretation See Note Peripheral blood, BCR/ABL1 mRNA analysis, qualitative: Negative. No BCR/ABL1 mRNA transcripts were detected. Method summary: The presence or absence of BCR/ABL1 mRNA transcripts was evaluated using a qualitative, reverse executive talent acquisition consultant PCR-based assay. The assay detects nearly all published and theoretical BCR/ABL1 fusion forms including the common e13/e14-a2 (p210) and e1-a2 (p190) transcripts, as well as other rarer variants (e.g. e19-a2 (p230), e13/e14-a3, e1-a3, etc.). The limit of detection for this assay is 0.1%. Please contact the lab at [phone] with questions or if additional testing is required. See [employer] [facility] Test Catalog for additional method details. Signing Pathologist: Ammon Titus M.D. (Jane), Ph.D. ADDITIONAL INFORMATION This test was developed and its performance characteristics determined by [facility] in a manner consistent with CLIA requirements. This test has not been cleared or approved by the U.S. Food and Drug Administration. Test Performed by: [address] [address] Digital Performance Analyst: Thierry Duran M.D. Ph.D.; CLIA# [id number] Narrative diagnostic report Molgen Yaw (Bld/Tiss) [Interp]on 09-25-2023 [facility] Surgical Pathologyon 024 Surgical Pathology Normal [facility] Comment on above: Result Comment: [facility] [address] [place] [address] Surgical Pathology Consultation ADDENDUM SD Patient Name:JOSE DAVID:1945 (Age: 78)Gender:FTaken:09/25/2023eported:09/26/2023hysician(s):Kristel Reid MD ([phone])Copy To: Rec. #:[id number]: #[id number] Final Pathologic Diagnosis 1. Left temporal artery [...] Signed Out wak/09/26/2023José Luis Pederson MD Addendum ([facility]) Date Reported: 09/29/2023 In both parts of the specimen, and elastic special stain (with appropriate controls) demonstrates fragmentation and loss of the internal elastic lamina. Electronically Signed Out José Luis Pederson MD Interpretation performed at [facility], [address] [place] [address] Rd, [place] [address], License number: [id number]. Clinical History Temporal arteries. Gross Description 1. Received in formalin labeled MULUGETA, left temporal artery biopsy is a segment of vasculature, 2 x 0.3 cm. The specimen is sectioned to reveal a pinpoint lumen. Are 3 segments of vasculature ranging from 0.5 cm to 1.2 cm in length by 0.2 cm in diameter. The specimen is submitted entirely in a single cassette. (1,ns,[id number], m1) . 2. Received in formalin labeled MULUGETA, right temporal artery biopsy are 3 segments of vasculature ranging from 0.5 cm to 1.2 cm in length by 0.2 cm in diameter. The segments are sectioned to reveal pinpoint lumens. The specimen are submitted entirely in cassettes A-B. (2,ns,[id number], m1) /4RG Specimen(s) Received 1: Left temporal artery biopsy 2: Right temporal artery biopsy Fee Codes(s): 1; 21647, 30388 2; 97719, 53500 dRVVT/dRVVT.excess phospholi pid Coag (PPP) [Ratio]on 09-25-2023 dRVVT excess phospholipid Coag Ql (PPP) Negative [facility] ANCAon 09-24-2023 Neutrophil cytoplasmic Ab IF Ql (S) See Below [facility] Comment on above: NOTE TEST RESULT [...] See below Reviewed by Arun Tucker, Ph.D D([facility]) This test is used as an aid in diagnosis of patients with autoimmune vasculitidies. The final interpretation should be done in conjunction with ANCA test results and clinical correlation. Test Performed By: [facility] [address] [place] [address] Fax Machine Repairer: Meño Hernandez III, M.D. CLIA #[id number]^ BASIC METABOLIC PANLon 09-24 Anion gap [Moles/Vol] 10 mmol/L Normal 5-15 [facility] Comment on above: Performed By: #### C BCA, CMP, 1987-12, FEPR, 2276-4, 2284-8, 81061-4, 2132-9, 31101-0, 90491-4, 5130-0, 68043-9, 29216-3, 27898-2, 3357-1, 8092-9, 34313-0, 02059-6, 63476-2, 24092-2, 38685-5 #### [facility] ([id number]) [address] [place] [address], [address] [place] [address] Calcium [Mass/Vol] 8.5 mg/dL Normal 8.5-10.5 [facility] Comment on above: Performed By: #### C BCA, CMP, 1987-12, FEPR, 2276-4, 2284-8, 65786-7, 2132-9, 56110-4, 44528-5, 5130-0, 89870-4, 98832-5, 45885-8, 3357-1, 8092-9, 20919-0, 87496-0, 39042-0, 46367-4, 21809-1 #### [facility] ([id number]) [address] [place] [address], [address] [place] [address] Chloride [Moles/Vol] 101 mmol/L Normal 98-109 [facility] Comment on above: Performed By: #### C BCA, CMP, 1987-12, FEPR, 2276-4, 2284-8, 39365-7, 2132-9, 07227-3, 85981-6, 5130-0, 54330-4, 02222-5, 20515-8, 3357-1, 8092-9, 55158-0, 00674-1, 10142-4, 79927-0, 54490-0 #### [facility] ([id number]) [address], [address] [place] [address] CO2 [Moles/Vol] 29 mmol/L Normal 22-32 [facility] Comment on above: Performed By: #### C BCA, CMP, 1987-12, FEPR, 2276-4, 2284-8, 33092-7, 213-9, 53386-4, 33198-7, 5130-0, 29842-9, 76105-3, 88921-5, 3357-1, 8092-9, 16890-3, 72056-1, 42795-9, 36008-6, 31055-5 #### [facility] ([id number]) [address], [address] [place] [address] Creatinine [Mass/Vol] 0.61 mg/dL Normal 0.40-1.00 [facility] Comment on above: Result Comment: METH OD TRACEABLE TO IDMS STANDARD Performed By: #### C BCA, CMP, 1987-12, FEPR, 2276-4, 2284-8, 81207-3, 213-9, 22065-5, 37613-7, 5130-0, 93905-0, 42886-6, 45580-4, 3357-1, 8092-9, 74219-3, 23807-1, 63506-5, 64871-4, 13311-2 #### [facility] ([id number]) [address], [address] [address] eGFR (CKD-EPI) NON-RACE DEPENDENT >90 Normal >59 [facility] Comment on above: Result Comment: Reported eGFR is based on the CKD-EPI 2020 equation that does not use a race coefficient. Performed By: #### C BCA, CMP, 1987-12, FEPR, 2276-4, 2284-8, 05085-2, 2132-9, 84487-5, 05058-0, 5130-0, 78575-9, 88141-9, 51328-6, 3357-1, 8092-9, 66339-8, 30443-8, 54623-2, 17992-2, 41314-2 #### [facility] ([id number]) [address], [address] [place] [address] Glucose [Mass/Vol] 98 mg/dL Normal 65-99 [facility] Comment on above: Performed By: #### C BCA, CMP, 1987-12, FEPR, 2276-4, 2284-8, 53011-2, 2132-9, 51903-6, 39993-5, 5130-0, 82549-2, 94118-2, 92692-5, 3357-1, 8092-9, 62464-7, 09258-5, 47902-5, 69890-5, 82259-8 #### [facility] ([id number]) [address], [address] [place] [address] Potassium [Moles/Vol] 3.5 mmol/L Normal 3.5-5.0 [facility] Comment on above: Performed By: #### C BCA, CMP, 1987-12, FEPR, 2276-4, 2284-8, 46058-2, 2132-9, 90092-6, 37534-5, 5130-0, 59485-4, 74600-9, 19178-1, 3357-1, 8092-9, 30496-2, 89809-6, 45086-2, 17876-4, 39021-1 #### [facility] ([id number]) [address], [address] [place] [address] Sodium [Moles/Vol] 140 mmol/L Normal 134-146 [facility] Comment on above: Performed By: #### C BCA, CMP, 1987-, FEPR, 2276-4, 2284-8, 60805-8, 2132-9, 97988-9, 47239-9, 5130-0, 54059-4, 19947-3, 33877-0, 3357-1, 8092-9, 41927-2, 74041-1, 22743-6, 29378-3, 99310-9 #### [facility] ([id number]) [address], [address] [place] [address] Urea nitrogen [Mass/Vol] 22 mg/dL Normal 5-27 [facility] Comment on above: Performed By: #### C BCA, CMP, 1987-12, FEPR, 2276-4, 2284-8, 87875-7, 2132-9, 90852-2, 34476-1, 5130-0, 50485-9, 25366-7, 17517-5, 3357-1, 8092-9, 96602-8, 56673-9, 32941-8, 82581-1, 43737-2 #### [facility] ([id number]) [address], [address] [place] [address] Basic Metabolic Panelon - Anion gap [Moles/Vol] 10 mmol/L 5 - 15 mmol/L [facility] Calcium [Mass/Vol] 8.5 mg/dL 8.5 - 10. 5 mg/dL [facility] Chloride [Moles/Vol] 101 mmol/L 98 - 10 9 mmol/L [facility] CO2 [Moles/Vol] 29 mmol/L 22 - 32 mmol/L [facility] Creatinine [Mass/Vol] 0.61 mg/dL 0.40 - 1.00 mg/dL [facility] Comment on above: METHOD TRACEABLE TO IDMS STANDARD eGFR (CKD-EPI)non-race dependent - PINF [facility] Comment on above: Reported eGFR is based on the CKD-EPI 2020 equation that does not use a race coefficient. Glucose [Mass/Vol] 98 mg/dL 65 - 99 mg/dL [facility] Potassium [Moles/Vol] 3.5 mmol/L 3.5 - 5.0 mmol/L [facility] Sodium [Moles/Vol] 140 mmol/L 134 - 146 mmol/L [facility] Urea nitrogen [Mass/Vol] 22 mg/dL 5 - 27 mg/dL [facility] CBC AND AUTO DIFFon 09-24-19 24 ABSOLUTE BASOPHIL 0.1 X10E9/L Normal 0.0-0.2 [facility] Comment on above: Performed By: #### C KELVIN EARLY, 1987-12, FEPR, 2275-4, 2283-8, 36544-3, 2132-9, 65017-2, 61136-3, 5130-0, 14426-2, 45128-6, 43142-3, 3357-1, 8092-9, 47704-6, 39533-6, 22068-6, 56407-9, 09730-8 #### [facility] ([id number]) [address] [place] [address], [address] [place] [address] ABSOLUTE NEUTROPHIL 16.3 X10E9/L High 1.5-6.6 [facility] Comment on above: Performed By: #### C KELVIN EARLY, 1987-12, FEPR, 2275-, 2283-8, 96339-2, 2131-9, 20970-3, 68073-2, 5130-0, 34862-0, 73741-5, 11670-9, 3357-1, 8092-9, 41254-2, 27615-7, 47161-5, 33282-6, 36006-5 #### [facility] ([id number]) [address], [address] [place] [address] Basophils/100 WBC (Bld) 0.5 % Normal [facility] Comment on above: Performed By: #### C KELVIN EARLY, 1987-12, FEPR, 2276-4, 2284-8, 84106-6, 2132-9, 05855-8, 77652-9, 5130-0, 71774-3, 48439-8, 70595-4, 3357-1, 8092-9, 76991-0, 68804-0, 05833-3, 75642-5, 88948-1 #### [facility] ([id number]) [address], [address] [place] [address] Eosinophils (Bld) [#/Vol] 0.0 10*3/uL Normal 0.0-0.4 [facility] Comment on above: Performed By: #### C KELVIN EARLY, 1987-12, FEPR, 2276-4, 2284-8, 46832-2, 2132-9, 99120-9, 53093-1, 5130-0, 34377-1, 99829-0, 01067-6, 3357-1, 8092-9, 28809-5, 75145-1, 78333-2, 62422-9, 78302-3 #### [facility] ([id number]) [facility], [address] [place] [address] Eosinophils/100 WBC (Bld) 0.0 % Normal [facility] Comment on above: Performed By: #### C SHARATH, KELVIN, 1987-12, FEPR, 6-4, 2284-8, 48283-5, 2132-9, 94725-6, 77226-0, 5130-0, 61540-5, 33806-0, 30509-0, 3357-1, 8092-9, 79102-0, 29145-8, 63696-8, 90872-6, 30441-5 #### [facility] ([id number]) [address], [address] [place] [address] Erythrocyte distribution width (RBC) [Ratio] 14.8 % Normal 11.5-15.0 [facility] Comment on above: Performed By: #### C SHARATH, CMP, 1987-12, FEPR, 2276-4, 2284-8, 42456-5, 2132-9, 44210-8, 57942-7, 5130-0, 89752-5, 23881-9, 46651-2, 3357-1, 8092-9, 89323-9, 41392-7, 27181-4, 75987-8, 21868-6 #### [facility] ([id number]) [address], [address] [place] [address] Hematocrit (Bld) [Volume fraction] 25.6 % Low 35-47 [facility] Comment on above: Performed By: #### C SHARATH, [facility], 1987-12, FEPR, 2276-4, 2284-8, 40015-6, 2132-9, 50176-6, 56914-8, 5130-0, 38142-4, 04463-3, 45326-2, 3357-1, 8092-9, 79597-8, 19161-7, 29293-8, 43858-1, 01161-5 #### [facility] ([id number]) [facility], [address] [place] [address] Hemoglobin (Bld) [Mass/Vol] 8.3 g/dL Low 11.7-15.5 [facility] Comment on above: Performed By: #### C SHARATH, [facility], 1987-12, FEPR, 2276-4, 2284-8, 09563-0, 2132-9, 38394-7, 54941-5, 5130-0, 77143-7, 70264-3, 01499-8, 3357-1, 8092-9, 89848-0, 44918-2, 36177-1, 47059-5, 79238-2 #### [facility] ([id number]) [address], [address] [place] [address] Lymphocytes (Bld) [#/Vol] 1.6 10*3/uL Normal 1.0-3.5 [facility] Comment on above: Performed By: #### C SHARATH, CMP, 1987-12, FEPR, 2276-4, 2284-8, 94122-3, 2132-9, 69204-1, 64724-7, 5130-0, 29113-4, 81285-7, 61676-1, 3357-1, 8092-9, 96150-4, 12232-1, 80684-7, 67981-0, 38954-4 #### [facility] ([id number]) [address], [address] [place] [address] Lymphocytes/100 WBC (Bld) 8.3 % Normal [facility] Comment on above: Performed By: #### C SHARATH, CMP, 1987-12, FEPR, 2276-4, 2284-8, 64346-1, 2132-9, 40502-1, 65914-5, 5130-0, 26511-0, 89546-5, 69861-6, 3357-1, 8092-9, 72411-5, 80271-8, 36293-0, 82685-6, 81345-9 #### [facility] ([id number]) [address], [address] [place] [address] MCH (RBC) [Entitic mass] 27.8 pg Normal 27-34 [facility] Comment on above: Performed By: #### C SHARATH, CMP, 1987-12, FEPR, 2276-4, 2284-8, 89116-7, 2132-9, 44182-2, 18573-5, 5130-0, 09756-0, 58872-0, 79513-0, 3357-1, 8092-9, 10897-1, 98928-9, 93002-9, 16493-9, 86966-0 #### [facility] ([id number]) [address], [address] [place] [address] MCHC (RBC) [Mass/Vol] 32.5 g/dL Normal 32-36 [facility] Comment on above: Performed By: #### C BCA, CMP, 1987-, FEPR, 2276-4, 2284-8, 53903-3, 2132-9, 57937-5, 82391-0, 5130-0, 23929-8, 57216-7, 17540-1, 3357-1, 8092-9, 42232-0, 70558-1, 66921-5, 45507-2, 39108-7 #### [facility] ([id number]) [address], [address] [place] [address] MCV (RBC) [Entitic vol] 85 fL Normal 80-100 P [facility] Comment on above: Performed By: #### C BCA, CMP, 1987-12, FEPR, 227-4, 2284-8, 51901-4, 2132-9, 44476-8, 53643-3, 5130-0, 89565-8, 49459-8, 03448-1, 3357-1, 8092-9, 32617-1, 65868-7, 30301-4, 53846-1, 89757-8 #### [facility] ([id number]) [address], [address] [place] [address] Monocytes (Bld) [#/Vol] 1.0 10*3/uL High 0-0.9 [facility] Comment on above: Performed By: #### C BCA, CMP, 1987-12, FEPR, 2276-4, 2284-8, 57279-7, 2132-9, 21944-4, 04688-7, 5130-0, 16126-9, 23810-2, 57568-6, 3357-1, 8092-9, 98863-7, 92946-5, 55132-8, 86135-8, 00757-3 #### [facility] ([id number]) [address], [address] [place] [address] Monocytes/100 WBC (Bld) 5.0 % Normal [facility] Comment on above: Performed By: #### C SHARATH, CMP, 1987-12, FEPR, 2276-4, 2284-8, 55253-4, 2132-9, 51100-0, 23453-9, 5130-0, 99526-9, 52774-3, 89851-0, 3357-1, 8092-9, 05125-4, 56849-5, 29195-8, 68317-8, 19123-9 #### [facility] ([id number]) [address], [address] [place] [address] Neutrophils/100 WBC (Bld) 86.2 % Normal [facility] Comment on above: Performed By: #### C SHARATH, CMP, 1987-12, FEPR, 2275-4, 2284-8, 63086-0, 2132-9, 13913-1, 61066-7, 5130-0, 05742-1, 30404-6, 07209-1, 3357-1, 8092-9, 77962-1, 97993-9, 47838-1, 44387-1, 61454-1 #### [facility] ([id number]) [address], [address] [place] [address] Platelet mean volume (Bld) [Entitic vol] 6.5 fL Low 7-12 [facility] Comment on above: Performed By: #### C SHARATH, CMP, 1987-12, FEPR, 2276-4, 2284-8, 19381-1, 2132-9, 94315-1, 72776-5, 5130-0, 23152-0, 87213-1, 52269-1, 3357-1, 8092-9, 21299-4, 72943-7, 05629-7, 61867-5, 64401-8 #### [facility] ([id number]) [address], [address] [place] [address] Platelets (Bld) [#/Vol] 902 10*3/uL High 150-450 [facility] Comment on above: Performed By: #### C SHARATH, KELVIN, 1987-12, FEPR, 2276-4, 2284-8, 60163-0, 2132-9, 78268-4, 49051-6, 5130-0, 44254-0, 27502-1, 17528-9, 3357-1, 8092-9, 78934-7, 68149-7, 85629-4, 68106-0, 64268-5 #### [facility] ([id number]) [address], [address] [place] [address] RBC COUNT 3.00 X10E12/L Low 3.80-5.20 [facility] Comment on above: Performed By: #### C KELVIN EARLY, 1987-12, FEPR, 2275-4, 2284-8, 24060-2, 2132-9, 98338-6, 13111-6, 5130-0, 26157-3, 42293-4, 33877-3, 3357-1, 8092-9, 45704-0, 26632-2, 66197-6, 24774-4, 63046-3 #### [facility] ([id number]) [address], [address] [place] [address] WBC (Bld) [#/Vol] 18.9 10*3/uL High 4.0-11.0 [facility] Comment on above: Performed By: #### C SHARATH, KELVIN, 1987-12, FEPR, 227-4, 2284-8, 99171-4, 2132-9, 34206-7, 71003-8, 5130-0, 46959-1, 29915-8, 82530-0, 3357-1, 8092-9, 14130-2, 76745-0, 35889-4, 37739-0, 00754-7 #### [facility] ([id number]) [address] [place] [address] CBC auto differentialon 08-27 Basophils (Bld) [#/Vol] 0.1 10*3/uL [facility] Basophils/100 WBC (Bld) 0.5 % [facility] Eosinophils (Bld) [...] System RBC (Bld) [#/Vol] 3.00 10*6/uL Low [facility] WBC corrected for nucl RBC Auto (Bld) [#/Vol] 18.9 High [facility] Cardiac echo study Procedure Ordered By: Nacho Grant on 09-24-2023 Aortic root 2.80 cm [employer] Work Phone: AV mean gradient 6.00 mmHg [employer] Work Phone: AV peak gradient 8.64 mmHg [employer] Work Phone: AV peak kym 147.00 cm/s [employer] Work Phone: [phone] AV valve area 1.95 cm2 [employer] Work Phone: AV Velocity Ratio 0.77 [employer] Work Phone: AV VTI 33.60 cm [employer] Work Phone: [phone] E wave deceleration time 187.00 msec [employer] Work Phone: E/A ratio 0.72 [employer] Work Phone: Echo EF Estimated 63 % [employer] Work Phone: EF 63 % [employer] Work Phone: Energy loss index 1.88 [employer] Work Phone: FS 33 % 28 - 44 % [employer] Work Phone: Interventricular Septum Diastolic Thickness by 2D 10 cm [employer] Work Phone: IVS 1.00 cm 0.6 - 1.1 cm [employer] Work Phone: LA size 3.60 cm [employer] Work Phone: LA volume 48.00 cm3 [employer] Work Phone: LA Volume Index 31.8 mL/m2 [employer] Work Phone: Left Ventricle Mass [id number] g [employer] Work Phone: LV Diastolic Volume 71.20 mL [employer] Work Phone: LV ESV A2C 56.30 mL [employer] Work Phone: [phone] LV ESV A4C 33.20 mL [employer] Work Phone: [phone] LV RWT 2D 51.28 [employer] Work Phone: [phone] LV Systolic Volume 26.00 mL [facility] Work Phone: [phone] LVIDd 3.90 cm 3.78 - 5.25 cm [employer] Work Phone: [phone] LVIDs 2.60 cm 2.25 - 3.40 cm [employer] Work Phone: [phone] LVOT diameter 1.80 cm [employer] Work Phone: [phone] LVOT peak kym 1.37 m/s [employer] Work Phone: [phone] LVOT peak VTI 25.80 cm [employer] Work Phone: [phone] LVOT stroke volume 65.65 ml [facility] Work Phone: [phone] MV Peak A Kym 99.40 cm/s [employer] Work Phone: [phone] MV Peak E Kym 71.30 cm/s [employer] Work Phone: [phone] MV pressure 1/2 time 55.00 ms [employer] Work Phone: [phone] MV TDI E' (medial) 6.85 cm/s [facility] Work Phone: [phone] MV valve area p 1/2 method 4.00 cm2 [employer] Work Phone: [phone] PV peak gradient 4.16 mmHg [employer] Work Phone: [phone] PW 1.00 cm 0.6 - 1.1 cm [employer] Work Phone: [phone] RV diastolic dimension (basal) 29.0 mm [employer] Work Phone: [phone] TAPSE 1.88 cm [employer] Work Phone: [phone] TDI 9.68 cm/s [employer] Work Phone: Valve area - Index 1.3 [facility] Work Phone: ZLVIDD -1.32 [facility] Work Phone: ZLVIDS -0.48 [employer] Work Phone: [employer] Work Phone: Cardiac echo study Procedure on [...] for comparison. [facility] Radiology Study observation (narrative) [facility] MR BRAIN W WO CONTon 024 MR [...] of the major arterial structures in the [place]. The paranasal sinuses are clear. [...] Jewell MD on 09/24/2023 4:24 AM Normal [facility] MR Brain WO and W [...] of the major arterial structures in the [place] of [place]. The paranasal sinuses are clear. [...] Gilbert Jewell MD on 09/24/2023 4:24 AM [employer] Gilbert Jewell M D - 09/24/2023 MR [...] of the major arterial structures in the [place]. The paranasal sinuses are clear. [...] Gilbert Jewell MD on 09/24/2023 4:24 AM [employer] [facility] (narrative[facility] ORBIT W WO CONTon 024 MR [...] of the major arterial structures in the [place]. The paranasal sinuses are clear. [...] Jewell MD on 09/24/2023 4:25 AM Normal [facility] MR Orbit WO and W contrast I [facility] 09-24-2023 EXAM:MR ORBIT W WO C ONT [...] of the major arterial structures in the [place]. The paranasal sinuses are clear. [...] of the major arterial structures in the [place]. The paranasal sinuses are clear. [...] Gilbert Jewell MD on 09/24/2023 4:25 AM [facility] (narrative) [facility] MR Orbit WO and W contrast I VOrdered By: Gilbert Jewell on 09-24-2023 [facility] [employer] [facility] Work Phone: Neutrophil cytoplasmic Ab IF Ql (S)on 09-24-2023 [facility] [employer] [facility] Reticulocyteson 09-24-2023 Reticulocytes/100 RBC (Bld) 2.3 % High 0.4 - 2.2 % [facility] Reticulocytes/100 RBC (Bld)o n 09-24-2023 Interpretation and review of laboratory results Abnormal [facility] [employer] [facility] RETICULOCYTE COUNT 2.3 % High 0.4-2.2 [facility] Comment on above: Performed By: #### C BCA, CMP, 1988-5, FEPR, 2276-4, 2284-8, 35450-7, 2132-9, 68189-9, 08051-6, 5130-0, 64700-3, 92037-5, 42113-7, 3357-1, 8092-9, 78336-1, 90433-5, 66161-9, 16537-5, 84811-7 #### [facility] ([id number]) [address], [address] [place] [address] ACUTE HEPATITIS PANELon -3 ANTI HCV W/PCR REFLX Non-Reactive Normal NRCT Pr [facility] Comment on above: Result Comment: If recent infection suspected, recommend repeat testing (>2 months). Ctbenu-dp-jfcakf ratio is <0.80. Performed By: #### C BCA, CMP, 1987-12, FEPR, 2276-4, 2284-8, 75751-2, 2132-9, 93432-0, 28158-5, 5130-0, 04910-8, 14559-6, 36151-9, 3357-1, 8092-9, 27248-0, 33761-1, 57704-7, 97278-8, 18796-1 #### [facility] ([id number]) [address], [address] [place] [address] HEPATITIS A IGM Non-Reactive Normal NRCT [facility] Comment on above: Performed By: #### C BCA, CMP, 1987-12, FEPR, 2276-4, 2284-8, 43755-5, 2132-9, 97450-3, 58834-3, 5130-0, 34332-5, 32393-0, 65423-2, 3357-1, 8092-9, 92999-3, 99945-7, 46980-1, 98645-3, 54144-5 #### [facility] ([id number]) [address], [address] [place] [address] HEPATITIS B CORE IGM Negative Normal NEG [facility] Comment on above: Performed By: #### C BCA, CMP, 1987-12, FEPR, 2276-4, 2284-8, 23100-6, 2132-9, 80182-8, 30002-1, 5130-0, 56589-7, 46404-0, 07180-3, 3357-1, 8092-9, 88157-6, 39283-5, 38805-2, 04505-9, 09165-9 #### [facility] ([id number]) [address], [address] [place] [address] HEPATITIS B SURF AG Negative Normal NEG [facility] Comment on above: Performed By: #### C SHARATH, KELVIN, 1987-12, FEPR, 2276-4, 2284-8, 01143-1, 2132-9, 76981-0, 58555-2, 5130-0, 86001-9, 23302-7, 44903-9, 3357-1, 8092-9, 30133-5, 95573-2, 72104-0, 74908-0, 83757-2 #### [facility] ([id number]) [address] [place] [address], [address] [place] [address] SILVIA Screen w/ Reflexon 09-23 Nuclear Ab IA Ql (S) Positive Abnormal Negativ e^Ne [facility] Comment on above: Testing performed using multiplex flow immunoassay. Eleven different antigens associated with systemic autoimmune diseases (dsDNA,Sm,Sm/ARMED SECURITY PROFESSIONAL,ARMED SECURITY PROFESSIONAL,Chromatin, SSA,SSB,Tiki-1,Scl70,Ribo P,Centromere B) are included in this screening test. ANTI CARDIOLIPIN AB IGG IGA IGMon 09-23-2023 MIRIAM IgA <2.0 Normal 0-19.9 [facility] Comment on above: Performed By: #### C SHARATH, KELVIN, 1987-12, FEPR, 6-4, 2284-8, 11720-5, 2132-9, 17451-6, 46574-6, 5130-0, 32187-8, 18622-5, 89649-9, 3357-1, 8092-9, 89875-3, 82632-2, 53459-9, 68162-4, 35328-8 #### [facility] ([id number]) [address], [address] [place] [address] MIRIAM IgG <1.6 Normal 0-19.9 [facility] Comment on above: Performed By: #### C SHARATH, CMP, 1987-12, FEPR, 2276-4, 2284-8, 66117-3, 2132-9, 60291-9, 54190-6, 5130-0, 27874-4, 60897-9, 93445-9, 3357-1, 8092-9, 25471-8, 74893-3, 63202-5, 84681-4, 65164-9 #### [facility] ([id number]) [address] [place] [address], [address] [place] [address] MIRIAM IgM <1.5 Normal 0-19.9 [facility] Comment on above: Performed By: #### C BCA, [facility], 1987-12, FEPR, 2275-4, 2284-8, 06379-7, 2132-9, 82540-9, 85821-2, 5130-0, 41177-6, 05211-4, 71210-6, 3357-1, 8092-9, 33808-4, 78812-1, 40125-9, 33874-8, 09371-3 #### [facility] ([id number]) [address] [place] [address], [address] [place] [address] Anileridine Ql (U)on 024 JO1 ANTIBODY <0.2 Normal <1.0 [facility] Comment on above: Performed By: #### C BCA, CMP, 1987-12, FEPR, 6-4, 2284-8, 25207-4, 2132-9, 70128-8, 16201-9, 5130-0, 25897-2, 01542-2, 97594-4, 3357-1, 8092-9, 60477-2, 29199-7, 46631-8, 89060-4, 30112-6 #### [facility] ([id number]) [address] [place] [address], [address] [place] [address] Anti cardiolipin AB IgG IgA IgMon 09-23-2023 Cardiolipin IgA IA Qn (S) [facility] Cardiolipin IgG IA Qn (S) [facility] Cardiolipin IgM IA Qn (S) [facility] Anti-Chromatin IGGon 024 Chromatin Ab Ql 0.4 [facility] Comment on above: CLIA ID [id number] Anti-DNA antibody, double-st randedon 09-23-2023 DNA double strand Ab Qn (S) 1 [IU]/mL [facility] Comment on above: Interpretation-------- <5 Negative 5-9 Indeterminate >9 Positive CLIA ID [id number] Anti-Ribosomal P AB IGGon Ribosomal P IgG Qn (S) [facility] Comment on above: CLIA ID [id number] Anti-Mejia AB IGGon 09-23-19 24 Mejia extractable nuclear IgG Qn (S) [facility] Comment on above: CLIA ID [id number] BETA-2 GP1 AB PANELon 2023 BETA-2 GP1 IgA <2.0 Normal 0.0-19.9 [facility] Comment on above: Performed By: #### C SHARATH, KELVIN, 1987-12, FEPR, 6-4, 2284-8, 96721-5, 2132-9, 92883-0, 57729-2, 5130-0, 61455-1, 71306-3, 92675-6, 3357-1, 8092-9, 95156-7, 34868-0, 88456-8, 08157-1, 02566-0 #### [facility] ([id number]) [address], [address] [place] [address] BETA-2 GP1 IgG <1.4 Normal 0.0-19.9 [facility] Comment on above: Performed By: #### C SHARATH, CMP, 1988-5, FEPR, 2276-4, 2284-8, 09774-8, 2132-9, 37836-5, 61241-4, 5130-0, 28846-1, 32072-9, 44843-5, 3357-1, 8092-9, 73620-6, 68959-7, 28052-0, 67693-6, 12169-9 #### [facility] ([id number]) [address] [place] [address], [address] [place] [address] BETA-2 GP1 IgM 4.1 u/mL Normal 0.0-19.9 [facility] Comment on above: Performed By: #### C KELVIN EARLY, 1987-12, FEPR, 2275-4, 2283-8, 53599-4, 2132-9, 87616-4, 83949-8, 5130-0, 52192-5, 99200-3, 96536-1, 3357-1, 8092-9, 85478-0, 57071-3, 17314-5, 13905-9, 61660-9 #### [facility] ([id number]) [address] [place] [address], [address] [place] [address] Beta-2 glycoprotein antibodi eson 09-23-2023 Beta 2 glycoprotein 1 IgA IA Qn u/mL 0.0 - 19.9 u/mL [facility] Beta 2 glycoprotein 1 IgG IA Qn u/mL 0.0 - 19.9 u/mL [facility] Beta 2 glycoprotein 1 IgM IA Qn 4.1 u/mL 0.0 - 19.9 u/mL [facility] C-reactive proteinon 024 CRP [Mass/Vol] 13.3 mg/dL High 0.000 - 0.744 mg/dL [facility] CBC AND AUTO DIFFon 09-23-19 24 ABSOLUTE BASOPHIL 0.0 X10E9/L Normal 0.0-0.2 [facility] Comment on above: Performed By: #### C SHARATH CMP, 1987-12, FEPR, 2276-4, 2284-8, 55401-6, 2132-9, 89360-7, 77845-9, 5130-0, 70899-5, 21923-7, 42497-5, 3357-1, 8092-9, 78906-2, 70887-3, 52058-1, 85635-4, 26041-9 #### [facility] ([id number]) [address], [address] [place] [address] ABSOLUTE NEUTROPHIL 11.5 X10E9/L High 1.5-6.6 [facility] Comment on above: Performed By: #### C SHARATH, CMP, 1987-12, FEPR, 2276-4, 2284-8, 62042-0, 2132-9, 96932-0, 46069-0, 5130-0, 14921-4, 94464-3, 38927-7, 3357-1, 8092-9, 22315-4, 17983-8, 13815-2, 45220-3, 40689-9 #### [facility] ([id number]) [address], [address] [place] [address] Basophils/100 WBC (Bld) 0.2 % Normal [facility] Comment on above: Performed By: #### C BCA, CMP, 1987-12, FEPR, 2276-4, 2284-8, 28783-7, 2132-9, 78650-0, 60570-7, 5130-0, 03363-9, 62169-4, 99071-0, 3357-1, 8092-9, 47256-2, 65781-8, 60448-0, 46407-4, 12282-9 #### [facility] ([id number]) [address], [address] [place] [address] Eosinophils (Bld) [#/Vol] 0.0 10*3/uL Normal 0.0-0.4 [facility] Comment on above: Performed By: #### C SHARATH, CMP, 1987-12, FEPR, 2276-4, 2284-8, 57677-2, 2132-9, 74811-3, 03652-9, 5130-0, 43472-0, 39036-3, 14056-5, 3357-1, 8092-9, 92393-5, 37440-8, 30535-8, 22972-8, 53797-0 #### [facility] ([id number]) [address], [address] [place] [address] Eosinophils/100 WBC (Bld) 0.0 % Normal [facility] Comment on above: Performed By: #### C SHARATH, CMP, 1987-12, FEPR, 227-4, 2284-8, 02152-0, 2132-9, 54733-6, 66850-6, 5130-0, 10226-0, 73115-2, 33645-1, 3357-1, 8092-9, 44130-1, 32598-2, 69364-1, 78312-5, 71336-7 #### [facility] ([id number]) [facility] [facility] [address] [place] [address] Erythrocyte distribution width (RBC) [Ratio] 14.4 % Normal 11.5-15.0 [facility] Comment on above: Performed By: #### C BCA, CMP, 1987-12, FEPR, 2275-4, 2284-8, 57554-5, 2132-9, 27238-3, 57774-5, 5130-0, 14410-9, 69795-0, 09128-9, 3357-1, 8092-9, 83566-2, 65584-8, 70619-6, 31939-4, 54233-5 #### [facility] ([id number]) [address], [address] [place] [address] Hematocrit (Bld) [Volume fraction] 27.8 % Low 35-47 [facility] Comment on above: Performed By: #### C SHARATH, KELVIN, 1987-12, FEPR, 2276-4, 2284-8, 85899-4, 2132-9, 84295-0, 89148-6, 5130-0, 36178-0, 52655-9, 27756-3, 3357-1, 8092-9, 80460-3, 39209-8, 35791-2, 13657-4, 18417-5 #### [facility] ([id number]) [address] [place] [address], [address] [address] Hemoglobin (Bld) [Mass/Vol] 9.1 g/dL Low 11.7-15.5 [facility] Comment on above: Performed By: #### C SHARATH, [facility], 1987-12, FEPR, 2275-4, 2284-8, 90465-2, 2132-9, 08500-3, 04915-8, 5130-0, 99755-2, 25138-9, 51762-5, 3357-1, 8092-9, 59865-5, 59271-1, 41739-8, 24645-1, 69592-9 #### [facility] ([id number]) [address] [place] [address], [address] [address] Lymphocytes (Bld) [#/Vol] 0.4 10*3/uL Low 1.0-3.5 [facility] Comment on above: Performed By: #### C SHARATH, [facility], 1987-12, FEPR, 2276-4, 2284-8, 37956-8, 2132-9, 86235-5, 66436-3, 5130-0, 72360-7, 18611-7, 57659-7, 3357-1, 8092-9, 04023-0, 36604-4, 56571-2, 42048-5, 97210-8 #### [facility] ([id number]) [address] [place] [address], [address] [place] [address] Lymphocytes/100 WBC (Bld) 3.3 % Normal [facility] Comment on above: Performed By: #### C BCA, CMP, 1987-12, FEPR, 2276-4, 2284-8, 18328-3, 2132-9, 03758-2, 26598-2, 5130-0, 37811-1, 46921-4, 08326-1, 3357-1, 8092-9, 87500-0, 47161-0, 28611-5, 84911-4, 88323-9 #### [facility] ([id number]) [address], [address] [place] [address] MCH (RBC) [Entitic mass] 27.8 pg Normal 27-34 [facility] Comment on above: Performed By: #### C SHARATH, CMP, 1987-12, FEPR, 2276-4, 2284-8, 88755-8, 2132-9, 20978-9, 77073-0, 5130-0, 74478-9, 32311-3, 61730-1, 3357-1, 8092-9, 89624-1, 77239-6, 15262-2, 06719-3, 54308-4 #### [facility] ([id number]) [address], [address] [place] [address] MCHC (RBC) [Mass/Vol] 32.7 g/dL Normal 32-36 [facility] Comment on above: Performed By: #### C BCA, CMP, 1987-12, FEPR, 2276-4, 2284-8, 37090-6, 2132-9, 34676-8, 58944-9, 5130-0, 25981-3, 41638-8, 99529-2, 3357-1, 8092-9, 27215-4, 82558-0, 62195-9, 47824-4, 00453-9 #### [facility] ([id number]) [address], [address] [place] [address] MCV (RBC) [Entitic vol] 85 fL Normal 80-100 P [facility] Comment on above: Performed By: #### C BCA, CMP, 1987-12, FEPR, 2276-4, 2284-8, 58311-0, 2132-9, 70243-2, 18575-7, 5130-0, 32440-7, 10195-1, 35181-5, 3357-1, 8092-9, 16656-3, 15420-2, 64595-8, 95667-5, 69569-0 #### [facility] ([id number]) [address], [address] [place] [address] Monocytes (Bld) [#/Vol] 0.1 10*3/uL Normal 0-0.9 [facility] Comment on above: Performed By: #### C BCA, CMP, 1987-12, FEPR, 2275-4, 2284-8, 65458-6, 2132-9, 98109-4, 64064-5, 5130-0, 81551-6, 05307-0, 88212-0, 3357-1, 8092-9, 29409-9, 33594-1, 15976-3, 69011-8, 42575-3 #### [facility] ([id number]) [address], [address] [place] [address] Monocytes/100 WBC (Bld) 1.0 % Normal [facility] Comment on above: Performed By: #### C BCA, CMP, 1987-12, FEPR, 227-4, 2284-8, 58532-2, 2132-9, 27556-5, 18460-4, 5130-0, 31540-1, 25765-6, 79815-3, 3357-1, 8092-9, 59495-9, 48961-0, 29631-4, 81348-2, 00497-6 #### [facility] ([id number]) [address], [address] [place] [address] Neutrophils/100 WBC (Bld) 95.5 % Normal [facility] Comment on above: Performed By: #### C SHARATH, CMP, 1987-12, FEPR, 2276-4, 2284-8, 66725-8, 2132-9, 02440-7, 88760-0, 5130-0, 92745-3, 90625-6, 58224-3, 3357-1, 8092-9, 81354-3, 24572-4, 29093-1, 98511-0, 01687-2 #### [facility] ([id number]) [address] [facility], [address] [place] [address] Platelet mean volume (Bld) [Entitic vol] 6.2 fL Low 7-12 [facility] Comment on above: Performed By: #### C SHARATH, CMP, 1987-12, FEPR, 2275-4, 2284-8, 13540-7, 2132-9, 39747-9, 51494-7, 5130-0, 00292-9, 25496-9, 40817-2, 3357-1, 8092-9, 07491-3, 75407-4, 65357-7, 53895-4, 58075-7 #### [facility] ([id number]) [address], [address] [place] [address] Platelets (Bld) [#/Vol] 924 10*3/uL High 150-450 [facility] Comment on above: Performed By: #### C SHARATH, CMP, 1987-12, FEPR, 2276-4, 2284-8, 66515-9, 2132-9, 19839-8, 08586-0, 5130-0, 88444-0, 43420-1, 55453-5, 3357-1, 8092-9, 03224-1, 94778-2, 24825-3, 43018-6, 81801-5 #### [facility] ([id number]) [address], [address] [place] [address] RBC COUNT 3.27 X10E12/L Low 3.80-5.20 [facility] Comment on above: Performed By: #### C BCA, CMP, 1987-12, FEPR, 2276-4, 2284-8, 61773-8, 2132-9, 06862-3, 14709-6, 5130-0, 97989-3, 86194-6, 02283-6, 3357-1, 8092-9, 31799-7, 74359-7, 77276-9, 00667-8, 64708-2 #### [facility] ([id number]) [address], [address] [place] [address] WBC (Bld) [#/Vol] 12.1 10*3/uL High 4.0-11.0 [facility] Comment on above: Performed By: #### C BCA, CMP, 1987-12, FEPR, 2276-4, 2284-8, 87381-2, 2132-9, 55257-2, 49883-8, 5130-0, 70088-7, 63987-7, 03666-3, 3357-1, 8092-9, 25174-9, 62528-1, 90328-1, 80671-7, 99847-2 #### [facility] ([id number]) [address], [address] [place] [address] ABSOLUTE BASOPHIL 0.2 X10E9/L Normal 0.0-0.2 [facility] Comment on above: Performed By: #### C BCA, CMP, 1987-12, FEPR, 2276-4, 2284-8, 76201-7, 2132-9, 99290-5, 80272-8, 5130-0, 76289-5, 53439-1, 84017-3, 3357-1, 8092-9, 41312-9, 78395-2, 86143-2, 52187-4, 40279-0 #### [facility] ([id number]) [address], [address] [place] [address] ABSOLUTE NEUTROPHIL 10.4 X10E9/L High 1.5-6.6 [facility] Comment on above: Performed By: #### C BCA, CMP, 1987-12, FEPR, 2276-4, 2284-8, 25571-1, 2132-9, 64880-0, 29647-4, 5130-0, 26304-7, 43201-7, 94543-2, 3357-1, 8092-9, 38709-4, 89183-8, 12635-3, 92270-2, 32076-9 #### [facility] ([id number]) [address], [address] [place] [address] Basophils/100 WBC (Bld) 2.1 % Normal [facility] Comment on above: Performed By: #### C BCA, CMP, 1987-12, FEPR, 2275-4, 2284-8, 00048-2, 2132-9, 67126-6, 37821-3, 5130-0, 88149-1, 05934-9, 88121-1, 3357-1, 8092-9, 03200-9, 38521-4, 70704-8, 13834-9, 75025-7 #### [facility] ([id number]) [address], [address] [place] [address] Eosinophils (Bld) [#/Vol] 0.0 10*3/uL Normal 0.0-0.4 [facility] Comment on above: Performed By: #### C BCA, CMP, 1987-12, FEPR, 2276-4, 2284-8, 36964-3, 2132-9, 83316-1, 13113-8, 5130-0, 73880-1, 87664-8, 65045-7, 3357-1, 8092-9, 66384-6, 18106-3, 44735-8, 51872-5, 64760-3 #### [facility] ([id number]) [address], [address] [place] [address] Eosinophils/100 WBC (Bld) 0.0 % Normal [facility] Comment on above: Performed By: #### C BCA, CMP, 1987-12, FEPR, 227-4, 2284-8, 99851-2, 2132-9, 70849-4, 69561-5, 5130-0, 51022-2, 35261-6, 60834-1, 3357-1, 8092-9, 50806-9, 64101-8, 48851-2, 09534-9, 63115-2 #### [facility] ([id number]) [address], [address] [place] [address] Erythrocyte distribution width (RBC) [Ratio] 14.6 % Normal 11.5-15.0 [facility] Comment on above: Performed By: #### C BCA, CMP, 1987-12, FEPR, 2275-4, 2284-8, 31063-9, 2132-9, 86239-3, 45765-3, 5130-0, 13701-3, 10519-3, 28929-9, 3357-1, 8092-9, 62434-8, 25782-5, 11347-0, 83365-0, 81126-4 #### [facility] ([id number]) [address], [address] [place] [address] Hematocrit (Bld) [Volume fraction] 26.2 % Low 35-47 [facility] Comment on above: Performed By: #### C BCA, CMP, 1987-12, FEPR, 2276-4, 2284-8, 46981-7, 2132-9, 47673-9, 35558-3, 5130-0, 77125-5, 60829-5, 80545-2, 3357-1, 8092-9, 94629-9, 24392-4, 74219-7, 90965-8, 08024-3 #### [facility] ([id number]) [address], [address] [place] [address] Hemoglobin (Bld) [Mass/Vol] 8.6 g/dL Low 11.7-15.5 [facility] Comment on above: Performed By: #### C SHARATH, KELVIN, 1987-12, FEPR, 2275-4, 228-8, 57891-2, 2132-9, 20003-3, 82966-4, 5130-0, 19320-8, 35373-6, 48449-3, 3357-1, 8092-9, 97049-6, 20583-5, 28577-6, 90096-5, 01748-9 #### [facility] ([id number]) [address], [address] [place] [address] Lymphocytes (Bld) [#/Vol] 0.4 10*3/uL Low 1.0-3.5 [facility] Comment on above: Performed By: #### C KELVIN EARLY, 1987-12, FEPR, 2275-, 2283-8, 29890-5, 2131-9, 05173-4, 17302-5, 5130-0, 67094-9, 22974-6, 91654-1, 3357-1, 8092-9, 24824-1, 96606-4, 89174-4, 24442-1, 50878-4 #### [facility] ([id number]) [address], [address] [place] [address] Lymphocytes/100 WBC (Bld) 3.6 % Normal [facility] Comment on above: Performed By: #### C KELVIN EARLY, 1987-12, FEPR, 2275-4, 2284-8, 90997-9, 2132-9, 22291-5, 73864-6, 5130-0, 74226-7, 23669-9, 38120-0, 3357-1, 8092-9, 52681-1, 16918-4, 84888-8, 37572-0, 33536-9 #### [facility] ([id number]) [address], [address] [place] [address] MCH (RBC) [Entitic mass] 28.1 pg Normal 27-34 [facility] Comment on above: Performed By: #### C BCA, CMP, 1987-12, FEPR, 2276-4, 2284-8, 99375-3, 2132-9, 27258-7, 55948-3, 5130-0, 56682-5, 26614-1, 63194-5, 3357-1, 8092-9, 38063-4, 77739-8, 21502-8, 57402-5, 03442-2 #### [facility] ([id number]) [address], [address] [place] [address] MCHC (RBC) [Mass/Vol] 32.9 g/dL Normal 32-36 [facility] Comment on above: Performed By: #### C BCA, CMP, 1987-12, FEPR, 6-4, 2284-8, 40509-6, 2132-9, 50659-8, 62171-2, 5130-0, 20948-3, 80951-6, 12871-2, 3357-1, 8092-9, 11044-4, 08989-5, 26106-2, 62370-9, 26612-0 #### [facility] ([id number]) [address], [address] [place] [address] MCV (RBC) [Entitic vol] 85 fL Normal 80-100 [facility] Comment on above: Performed By: #### C BCA, CMP, 1987-12, FEPR, 2276-4, 2284-8, 64795-8, 2132-9, 55320-2, 32850-6, 5130-0, 21968-9, 11231-7, 06655-1, 3357-1, 8092-9, 76974-7, 12995-9, 41744-1, 48923-7, 43496-8 #### [facility] ([id number]) [address], [address] [place] [address] Monocytes (Bld) [#/Vol] 0.1 10*3/uL Normal 0-0.9 [facility] Comment on above: Performed By: #### C BCA, CMP, 1987-12, FEPR, 2276-4, 2284-8, 00482-3, 2132-9, 33123-5, 31460-8, 5130-0, 65528-3, 56257-7, 90669-7, 3357-1, 8092-9, 45607-7, 65837-2, 09381-2, 16347-1, 85643-9 #### [facility] ([id number]) [address], [address] [place] [address] Monocytes/100 WBC (Bld) 1.0 % Normal [facility] Comment on above: Performed By: #### C BCA, CMP, 1987-12, FEPR, 2276-4, 2284-8, 91336-5, 2132-9, 68014-8, 32872-8, 5130-0, 69368-9, 82673-6, 61488-4, 3357-1, 8092-9, 01651-6, 92197-2, 89425-2, 63861-7, 81042-9 #### [facility] ([id number]) [address], [address] [place] [address] Neutrophils/100 WBC (Bld) 93.3 % Normal [facility] Comment on above: Performed By: #### C BCA, CMP, 1987-12, FEPR, 2276-4, 2284-8, 17793-4, 2132-9, 98003-1, 89886-8, 5130-0, 50031-6, 63714-3, 24354-6, 3357-1, 8092-9, 35270-1, 60730-8, 04922-4, 22549-9, 47031-3 #### [facility] ([id number]) [address], [address] [place] [address] Platelet mean volume (Bld) [Entitic vol] 6.3 fL Low 7-12 [facility] Comment on above: Performed By: #### C BCA, CMP, 1987-12, FEPR, 2276-4, 2284-8, 90590-5, 2132-9, 61351-9, 15986-6, 5130-0, 08050-7, 86639-5, 26505-5, 3357-1, 8092-9, 32754-5, 16116-2, 65778-7, 04962-8, 48887-1 #### [facility] ([id number]) [address], [address] [place] [address] Platelets (Bld) [#/Vol] 917 10*3/uL High 150-450 [facility] Comment on above: Performed By: #### C BCA, CMP, 1987-12, FEPR, 2276-4, 2284-8, 32941-2, 2132-9, 49821-4, 30087-1, 5130-0, 70093-7, 14067-9, 15405-1, 3357-1, 8092-9, 10445-9, 08729-0, 47941-4, 49821-2, 30214-2 #### [facility] ([id number]) [address], [address] [place] [address] RBC COUNT 3.07 X10E12/L Low 3.80-5.20 [facility] Comment on above: Performed By: #### C BCA, CMP, 1987-12, FEPR, 2276-4, 2284-8, 37297-7, 2132-9, 64928-7, 87617-7, 5130-0, 31918-2, 09414-9, 27414-8, 3357-1, 8092-9, 65267-6, 39929-7, 80122-2, 65530-7, 03473-1 #### [facility] [facility] ([id number]) [address] [place] [address], [address] [place] [address] WBC (Bld) [#/Vol] 11.1 10*3/uL High 4.0-11.0 [facility] Comment on above: Performed By: #### C BCA, CMP, 1987-, FEPR, 2276-4, 2284-8, 04982-0, 2132-9, 67811-1, 50998-0, 5130-0, 15613-2, 08471-3, 39225-1, 3357-1, 8092-9, 29420-2, 80812-5, 44692-6, 11676-5, 90699-1 #### [facility] ([id number]) [address] [place] [address], [address] [place] [address] CBC auto differentialon 08-27 Basophils (Bld) [#/Vol] 0.0 10*3/uL [facility] Basophils/100 WBC (Bld) 0.2 % [facility] Eosinophils (Bld) [#/Vol] 0.0 10*3/uL [...] [facility] Lymphocytes/100 WBC (Bld) 3.3 % [facility] MCH (RBC) [Entitic mass] 27.8 pg 27 - 34 pg [facility] MCHC (RBC) [Mass/Vol] 32.7 g/dL 32 - 3 6 g/dL [facility] MCV (RBC) [Entitic vol] 85 fL 80 - 100 fL [facility] Monocytes (Bld) [#/Vol] 0.1 10*3/uL [facility] Monocytes/100 WBC (Bld) 1.0 % [facility] Neutrophils (Bld) [#/Vol] 11.5 10*3/uL High [facility] Neutrophils/100 WBC (Bld) 95.5 % [facility] Platelet mean volume (Bld) [Entitic vol] 6.2 fL Low 7 - 12 fL [facility] Platelets (Bld) [#/Vol] 924 10*3/uL High [facility] RBC (Bld) [#/Vol] 3.27 10*6/uL Low [facility] WBC corrected for nucl RBC Auto (Bld) [#/Vol] 12.1 High [facility] Basophils (Bld) [#/Vol] 0.2 10*3/uL [facility] Basophils/100 WBC (Bld) 2.1 % [facility] Eosinophils (Bld) [#/Vol] 0.0 10*3/uL [facility] Eosinophils/100 WBC (Bld) 0.0 % [facility] Erythrocyte distribution width (RBC) [Ratio] 14.6 % 11.5 - 15.0 % [facility] Hematocrit (Bld) [Volume fraction] 26.2 % Low 35 - 47 % [facility] Hemoglobin (Bld) [Mass/Vol] 8.6 g/dL Low 11.7 - 15.5 g/dL [facility] Interpretation and review of laboratory results Abnormal [facility] Lymphocytes (Bld) [#/Vol] 0.4 10*3/uL Low [facility] Lymphocytes/100 WBC (Bld) 3.6 % [facility] MCH (RBC) [Entitic mass] 28.1 pg 27 - 34 pg [facility] MCHC (RBC) [Mass/Vol] 32.9 g/dL 32 - 3 6 g/dL [facility] MCV (RBC) [Entitic vol] 85 fL 80 - 100 fL [facility] Monocytes (Bld) [#/Vol] 0.1 10*3/uL [facility] Monocytes/100 WBC (Bld) 1.0 % P [facility] Neutrophils (Bld) [#/Vol] 10.4 10*3/uL High [facility] Neutrophils/100 WBC (Bld) 93.3 % [facility] Platelet mean volume (Bld) [Entitic vol] 6.3 fL Low 7 - 12 fL [facility] Platelets (Bld) [#/Vol] 917 10*3/uL High [facility] RBC (Bld) [#/Vol] 3.07 10*6/uL Low [facility] WBC corrected for nucl RBC Auto (Bld) [#/Vol] 11.1 High [facility] COMPREHENSIVE METABOLIC PANE Cole 09-23-2023 Albumin [Mass/Vol] 3.0 g/dL Low 3.2-5.3 [facility] Comment on above: Performed By: #### C BCA, CMP, 1987-12, FEPR, 6-4, 2284-8, 22952-8, 2132-9, 54698-0, 75201-4, 5130-0, 99703-9, 52360-5, 97720-2, 3357-1, 8092-9, 75343-7, 28841-5, 20388-6, 27551-0, 81707-8 #### [facility] ([id number]) [address], [address] [place] [address] ALP [Catalytic activity/Vol] 227 U/L High 39-130 [facility] Comment on above: Performed By: #### C BCA, CMP, 1987-12, FEPR, 2276-4, 2284-8, 78399-7, 2132-9, 03846-7, 24924-3, 5130-0, 70104-7, 23380-6, 21576-8, 3357-1, 8092-9, 11535-8, 75415-5, 88688-2, 69062-9, 88393-0 #### [facility] ([id number]) [address], [address] [place] [address] ALT [Catalytic activity/Vol] 11 U/L Normal 0-31 [facility] Comment on above: Performed By: #### C BCA, CMP, 1987-12, FEPR, 2276-4, 2284-8, 57821-8, 2132-9, 63976-2, 47241-5, 5130-0, 15711-4, 23085-4, 87063-1, 3357-1, 8092-9, 61173-6, 84725-3, 57342-6, 62781-8, 68481-1 #### [facility] ([id number]) [address] [place] [address], [address] [place] [address] Anion gap [Moles/Vol] 13 mmol/L Normal 5-15 [facility] Comment on above: Performed By: #### C BCA, CMP, 1987-12, FEPR, 2276-4, 2284-8, 60255-6, 2132-9, 67384-5, 53151-4, 5130-0, 51516-2, 96682-4, 17033-9, 3357-1, 8092-9, 76860-2, 74804-8, 30968-9, 08441-3, 07679-9 #### [facility] ([id number]) [address] [place] [address], [address] [place] [address] AST [Catalytic activity/Vol] 12 U/L Normal 0-41 [facility] Comment on above: Performed By: #### C BCA, CMP, 1987-12, FEPR, 2276-4, 2284-8, 47913-3, 2132-9, 16506-1, 05906-9, 5130-0, 07578-0, 44201-2, 16475-3, 3357-1, 8092-9, 42284-1, 14442-2, 66903-7, 20273-5, 75027-5 #### [facility] ([id number]) [address], [address] [place] [address] Bilirubin [Mass/Vol] 0.6 mg/dL Normal 0.3-1.2 [facility] Comment on above: Performed By: #### C BCA, CMP, 1987-12, FEPR, 2276-4, 2284-8, 65668-4, 2131-9, 48796-6, 47127-8, 5130-0, 31735-5, 33392-2, 18518-0, 3357-1, 8092-9, 92730-6, 01898-3, 38486-0, 75765-5, 59434-0 #### [facility] ([id number]) [address], [address] [place] [address] Calcium [Mass/Vol] 8.6 mg/dL Normal 8.5-10.5 [facility] Comment on above: Performed By: #### C BCA, CMP, 1987-12, FEPR, 2276-4, 2284-8, 67257-5, 2131-9, 31604-4, 89190-6, 5130-0, 84740-6, 90145-9, 87063-6, 3357-1, 8092-9, 21057-9, 85535-3, 07352-1, 75504-2, 78858-5 #### [facility] ([id number]) [address], [address] [place] [address] Chloride [Moles/Vol] 101 mmol/L Normal 98-109 [facility] Comment on above: Performed By: #### C BCA, CMP, 1987-12, FEPR, 2276-4, 2284-8, 79990-1, 2132-9, 23519-2, 67796-8, 5130-0, 32979-3, 14228-7, 09406-2, 3357-1, 8092-9, 05427-6, 21199-2, 96025-7, 59873-9, 97964-7 #### [facility] ([id number]) [address], [address] [place] [address] CO2 [Moles/Vol] 25 mmol/L Normal 22-32 [facility] Comment on above: Performed By: #### C BCA, CMP, 1987-, FEPR, 2276-4, 2284-8, 59414-2, 2132-9, 73986-2, 47746-2, 5130-0, 28469-4, 88789-0, 19100-6, 3357-1, 8092-9, 85208-2, 02030-7, 07648-7, 30335-3, 92780-5 #### [facility] ([id number]) [address], [address] [address] Creatinine [Mass/Vol] 0.49 mg/dL Normal 0.40-1.00 [facility] Comment on above: Result Comment: METH OD TRACEABLE TO IDMS STANDARD Performed By: #### C BCA, CMP, 1987-12, FEPR, 2276-4, 2284-8, 72840-6, 2132-9, 78383-4, 22918-2, 5130-0, 02179-6, 06784-9, 80006-4, 3357-1, 8092-9, 68590-7, 88032-2, 80044-7, 31043-9, 03154-1 #### [facility] ([id number]) [address] [facility], [address] [address] eGFR (CKD-EPI) NON-RACE DEPENDENT >90 Normal >59 [facility] Comment on above: Result Comment: Reported eGFR is based on the CKD-EPI 2020 equation that does not use a race coefficient. Performed By: #### C BCA, CMP, 1987-12, FEPR, 2276-4, 2284-8, 62102-8, 2132-9, 73328-8, 15917-6, 5130-0, 33524-9, 16412-5, 19614-6, 3357-1, 8092-9, 46489-9, 61474-4, 85760-6, 01079-7, 55138-4 #### [facility] ([id number]) [address], [address] [place] [address] Glucose [Mass/Vol] 141 mg/dL High 65-99 [facility] Comment on above: Performed By: #### C BCA, CMP, 1987-12, FEPR, 2276-4, 2284-8, 73965-1, 2132-9, 98896-8, 89529-9, 5130-0, 19518-1, 73937-6, 74289-9, 3357-1, 8092-9, 11550-9, 57426-7, 84820-1, 16494-6, 57683-0 #### [facility] ([id number]) [address], [address] [place] [address] Potassium [Moles/Vol] 3.7 mmol/L Normal 3.5-5.0 [facility] Comment on above: Performed By: #### C BCA, CMP, 1987-12, FEPR, 2276-4, 2284-8, 66544-5, 2132-9, 17954-4, 17800-4, 5130-0, 67655-8, 01911-5, 58488-1, 3357-1, 8092-9, 56058-3, 14088-4, 88414-7, 63527-3, 66083-8 #### [facility] ([id number]) [address], [address] [place] [address] Protein [Mass/Vol] 6.9 g/dL Normal 6.0-8.0 [facility] Comment on above: Performed By: #### C BCA, CMP, 1987-12, FEPR, 2276-4, 2284-8, 95118-7, 2132-9, 81121-2, 53963-3, 5130-0, 85647-3, 16157-6, 59195-3, 3357-1, 8092-9, 26592-4, 27750-2, 78986-7, 00256-6, 23843-5 #### [facility] ([id number]) [address], [address] [place] [address] Sodium [Moles/Vol] 139 mmol/L Normal 134-146 [facility] Comment on above: Performed By: #### C BCA, CMP, 1987-12, FEPR, 2275-4, 2284-8, 54014-0, 2132-9, 01156-8, 84352-1, 5130-0, 16781-5, 70424-4, 08239-5, 3357-1, 8092-9, 57383-3, 85921-2, 98001-9, 92851-5, 09636-5 #### [facility] ([id number]) [address], [address] [place] [address] Urea nitrogen [Mass/Vol] 14 mg/dL Normal 5-27 [facility] Comment on above: Performed By: #### C BCA, CMP, 1987-12, FEPR, 227-4, 2284-8, 78222-6, 2132-9, 46037-1, 26569-7, 5130-0, 88100-2, 09514-7, 61556-9, 3357-1, 8092-9, 67215-0, 10717-9, 82569-1, 31193-5, 19568-8 #### [facility] ([id number]) [address], [address] [place] [address] CRP [Mass/Vol]on 09-23-2023 C REACTIVE PROTEIN 13.3 mg/dL High 0.000-0.744 [facility] Comment on above: Performed By: #### C SHARATH, KELVIN, 1987-12, FEPR, 2275-4, 2284-8, 95315-1, 2132-9, 97940-3, 27922-4, 5130-0, 05715-9, 10579-2, 93427-4, 3357-1, 8092-9, 84918-7, 79294-0, 77191-9, 27737-0, 82051-9 #### [facility] ([id number]) [address], [address] [place] [address] Centromere ABon 09-23-2023 Centromere protein B Ab Ql (S) High [facility] Comment on above: CLIA ID [id number] Centromere protein B Ab Ql ( S)on 09-23-2023 Interpretation and review of laboratory results Abnormal [facility] CENTROMERE ANTIBODY >8.0 High <1.0 [facility] Comment on above: Performed By: #### C SHARATH, KELVIN, 1987-12, FEPR, 2275-, 2283-8, 45896-4, 2131-9, 91398-2, 29119-0, 5130-0, 52876-7, 41625-0, 31651-5, 3357-1, 8092-9, 17564-8, 05573-8, 08389-4, 28357-7, 04134-1 #### [facility] ([id number]) [address], [address] [place] [address] Chromatin Ab Qlon 09-23-2023 CHROMATIN AB IGG 0.4 AI Normal <1.0 [facility] Comment on above: Performed By: #### C SHARATH, CMP, 1987-12, FEPR, 6-4, 2284-8, 63783-1, 2132-9, 02573-3, 54240-4, 5130-0, 48635-3, 43057-9, 74482-9, 3357-1, 8092-9, 83179-8, 42711-7, 10758-9, 79138-1, 27792-6 #### [facility] ([id number]) [address] [place] [address], [address] [place] [address] Clinical Pathologyon 024 Clinical Pathology Normal [facility] Comment on above: Result Comment: [facility] [address] [place] [address] Clinical Pathology Report Patient Name:JOSE DAVID:1945 (Age: 78)Gender:FTaken:4Reported:4Physician(s):Olga Pan M.D. ([phone])Copy To: Rec. #:[id number]: #[id number] Final Pathologic Diagnosis Hypoalbuminemia with increase in acute phase reactants. No monoclonal bands identified. Report Electronically Signed Out df/09/27/2023kevin Bains MD Interpretation [place] [address], License number: [id number]. Clinical History E53.8, H53.8, R29.90. SERUM PROTEIN ELECTROPHORESIS SAMPLE NO: [id number] ELECTROPHORETIC FRACTION CONCENTRATIONS (g/dL) PATIENT REFERENCE RANGE [...] IgA : 180 IgM : 285 Free [place]: 2.91 Free Lambda: 2.38 Free [place]/Lambda ratio: 1.22 Specimen(s) Received 1: Serum Protein Electrophoresis 2: Serum IEP Fee Codes(s): 1; 28120-06 2; 58521-90 Clinical Pathology Blood Sme ar Reviewon 09-23-2023 Clinical Pathology Blood Smear Review Normal [facility] Comment on above: Result Comment: [facility] [address] [place] [address] Clinical Pathology Report Patient Name:JOSE DAVID:1945 (Age: 78)Gender:FTaken:09/23/2023eported:09/26/2023hysician(s):Olga Pan M.D. ([phone])Copy To: Rec. #:[id number]: #[id number] Final Pathologic Diagnosis Peripheral blood smear: Neutrophilic [...] Out hna/09/26/2023Og Martinez M.D. [place] [address], License number: [id number]. Clinical History R29.9. BLOOD SMEAR EVALUATION CBC (09/23/2023 0818): WBC = 12.1 X10E9/L; HGB = 9.1 g/dL; HCT = 27.8%; MCV = 85 fL; PLT = 924 X10E9/L OTHER LAB DATA: Noncontributory. BLOOD SMEAR: Leukocytes: Neutrophilic leukocytosis with cytotoxic changes and lymphocytopenia. Erythrocytes: Moderate normocytic normochromic anemia. Platelets: Thrombocytosis. Specimen(s) Received Blood Smear Review Fee Codes(s): 1; 70684 Cobalamin (Vitamin B12) [Mas s/Vol]on 09-23-2023 [facility] Comprehensive metabolic pane cole 09-23-2023 Albumin [Mass/Vol] 3.0 g/dL Low 3.2 - 5.3 g/dL [facility] ALP [Catalytic activity/Vol] 227 U/L High 39 - 130 U/L [facility] ALT No additional P-5'-P [Catalytic activity/Vol] 11 U/L 0 - 31 U/L [facility] Anion gap [Moles/Vol] 13 mmol/L 5 - 15 mmol/L [facility] AST [Catalytic activity/Vol] 12 U/L 0 - 41 U/L [facility] Bilirubin [Mass/Vol] 0.6 mg/dL 0.3 - 1 .2 mg/dL [facility] Calcium [Mass/Vol] 8.6 mg/dL 8.5 - 10. 5 mg/dL [facility] Chloride [Moles/Vol] 101 mmol/L 98 - 10 9 mmol/L [facility] CO2 [Moles/Vol] 25 mmol/L 22 - 32 mmol/L [facility] Creatinine [Mass/Vol] 0.49 mg/dL 0.40 - 1.00 mg/dL [facility] Comment on above: METHOD TRACEABLE TO [facility] STANDARD eGFR (CKD-EPI)non-race dependent - PINF [facility] Comment on above: Reported eGFR is based on the CKD-EPI 2020 equation that does not use a race coefficient. Glucose [Mass/Vol] 141 mg/dL High 65 - 99 mg/dL [facility] Potassium [Moles/Vol] 3.7 mmol/L 3.5 - 5.0 mmol/L [facility] Protein [Mass/Vol] 6.9 g/dL 6.0 - 8.0 g/dL [facility] Sodium [Moles/Vol] 139 mmol/L 134 - 146 mmol/L [facility] Urea nitrogen [Mass/Vol] 14 mg/dL 5 - 27 mg/dL [facility] DNA double strand Ab Qn (S)o n 09-23-2023 DOUBLE STRANDED DNA 1 IU/ML Normal <5 [facility] Comment on above: Result Comment: Interpretation-------- <5 Negative 5-9 Indeterminate >9 Positive Performed By: #### C BCA, CMP, 1987-12, FEPR, 2276-4, 2284-8, 67938-3, 213-9, 65369-3, 47072-1, 5130-0, 83670-8, 46333-3, 00750-7, 3357-1, 8092-9, 06712-3, 19061-0, 22394-6, 31926-3, 62726-5 #### [facility] ([id number]) [address] [place] [address], [address] [place] [address] Direct Coombson 09-23-2023 Polyspecific HENRRY Negative [facility] ESR Photometric method (Bld) [Velocity]on 09-23-2023 Interpretation and review of laboratory results Abnormal [facility] ESR, ERYTHROCYTE SEDIMENTATION RATE 114 mm/h High 0-30 [facility] Comment on above: Performed By: #### C BCA, CMP, 1987-12, FEPR, 6-4, 2284-8, 96067-7, 213-9, 59854-7, 02546-4, 5130-0, 12169-9, 98675-2, 46830-4, 3357-1, 8092-9, 98103-6, 14830-9, 74955-3, 99709-8, 16633-3 #### [facility] ([id number]) [address] [place] [address], [address] [place] [address] Erythrocyte Sedimentation Ra te (ESR)on 09-23-2023 ESR Photometric method (Bld) [Velocity] 114 mm/h High 0 - 30 mm/h [facility] FERRITINon 09-23-2023 Ferritin [Mass/Vol] 478 ng/mL High 11-307 [facility] Comment on above: Performed By: #### C BCA, CMP, 1987-12, FEPR, 6-4, 2284-8, 87979-8, 2132-9, 35435-9, 23762-0, 5130-0, 36063-8, 40370-2, 61759-2, 3357-1, 8092-9, 23805-7, 40743-9, 11674-9, 74880-9, 60385-0 #### [facility] ([id number]) [address], [address] [place] [address] FLOW CYTOMETRYon 09-23-2023 FLOW CYTOMETRY SEE SEPARATE REPORT, REVIEWED BY PATHOLOGIST Normal [facility] Comment on above: Performed By: #### C BCA, CMP, 1987-12, FEPR, 2275-4, 2284-8, 77345-6, 2132-9, 62833-4, 93213-8, 5130-0, 42648-5, 31982-4, 54318-0, 3357-1, 8092-9, 47752-4, 80599-4, 87873-0, 84135-5, 37819-8 #### [facility] ([id number]) [address], [address] [place] [address] Ferritinon 09-23-2023 Ferritin [Mass/Vol] 478 ng/mL High 11 - 307 ng/mL [facility] Ferritin [Mass/Vol]on 2023 Interpretation and review of laboratory results Abnormal [facility] Folateon 09-23-2023 Folate [Mass/Vol] 13.0 ng/mL 5.8 - PINF ng/mL [facility] Comment on above: NEW REFERENCE RANGE Folate [Mass/Vol]on 09-23-19 24 [facility] FOLIC ACID 13.0 ng/mL Normal >5.8 [facility] Comment on above: Result Comment: NEW REFERENCE RANGE Performed By: #### C BCA, CMP, 1987-12, FEPR, 2276-4, 2284-8, 73524-0, 2132-9, 49834-5, 42150-4, 5130-0, 13867-1, 55586-6, 15937-7, 3357-1, 8092-9, 77639-9, 42069-1, 68128-8, 03594-9, 08098-3 #### [facility] ([id number]) [address] [facility], [address] [place] [address] Haptoglobinon 09-23-2023 Haptoglobin Nephelometry [Mass/Vol] 613 mg/dL High 32 - 228 mg/dL [facility] Haptoglobin Nephelometry [Ma ss/Vol]on 09-23-2023 Interpretation and review of laboratory results Abnormal [facility] HAPTOGLOBIN 613 mg/dL High 32-228 [facility] Comment on above: Performed By: #### C BCA, CMP, 1987-12, FEPR, 2276-4, 2284-8, 72268-7, 2132-9, 78507-5, 79857-2, 5130-0, 80094-6, 37552-0, 57438-2, 3357-1, 8092-9, 13471-4, 07394-8, 99671-3, 05812-6, 75221-6 #### [facility] ([id number]) [address] [place] [address], [address] [place] [address] Hepatitis panel, acuteon HAV IgM IA Ql Non-Reactive Non-Reactiv e^Non-React harshil [facility] HBV core IgM IA Ql Negative Negative^ Ne gative [facility] HBV surface Ag IA Ql Negative Negativ e^Ne gative [facility] HCV Ab IA Ql Non-Reactive Non-Reactiv e^Non-React harshil [facility] Comment on above: If recent infection suspected, recommend repeat testing (>2 months). Wdejhu-fd-tuubtr ratio is <0.80. [facility] Homocysteine [Moles/Vol]on 0 09-23-2023 HOMOCYSTEINE 9.29 mcmol/L Normal 3.36-20.44 [facility] Comment on above: Performed By: #### C SHARATH, KELVIN, 1987-12, FEPR, 2275-4, 2283-8, 69263-5, 213-9, 42095-9, 64947-9, 5130-0, 35424-6, 79872-0, 75949-8, 3357-1, 8092-9, 70194-3, 36644-0, 88793-4, 15143-0, 92685-1 #### [facility] ([id number]) [address] [facility], [address] [place] [address] [facility] Homocysteine totalon 024 Homocysteine [Moles/Vol] 9.29 umol/L [facility] IMMUNOELECTROPHORESIS FOR TH ERAPY MONITORINGon 09-23-2023 FREE KECIA/LAMBD RATIO 1.22 Normal 0.26-1.65 [facility] Comment on above: Performed By: #### C SHARATH, KELVIN, 1987-12, FEPR, 2275-, 2283-8, 09364-3, 2131-9, 04730-0, 43435-5, 5130-0, 54782-5, 10862-8, 78634-4, 3357-1, 8092-9, 02841-4, 75865-4, 03669-7, 32450-6, 04474-3 #### [facility] ([id number]) [facility] [facility], [address] [place] [address] FREE KAPPA LT CHAINS 2.91 mg/dL High 0.33-1.94 [facility] Comment on above: Performed By: #### C SHARATH, KELVIN, 1987-12, FEPR, 2275-, 2283-8, 04277-5, 2132-9, 77671-0, 41328-2, 5130-0, 09605-5, 83498-0, 25287-4, 3357-1, 8092-9, 19111-9, 91657-3, 59467-9, 10218-0, 76787-5 #### [facility] ([id number]) [address], [address] [place] [address] FREE LAMBDA LT CHAINS 2.38 mg/dL Normal 0.57-2.63 [facility] Comment on above: Performed By: #### C BCA, CMP, 1986-12, FEPR, 2275-4, 2284-8, 17435-7, 2132-9, 46860-1, 21311-1, 5130-0, 65748-9, 40943-3, 14068-8, 3357-1, 8092-9, 64173-4, 69385-2, 04541-6, 28428-0, 58239-5 #### [facility] ([id number]) [address], [address] [place] [address] IgA [Mass/Vol] 180 mg/dL Normal 68-378 [facility] Comment on above: Performed By: #### C BCA, CMP, 1987-12, FEPR, 2275-4, 2284-8, 60310-2, 2132-9, 14373-1, 77666-9, 5130-0, 82793-3, 94991-4, 42102-6, 3357-1, 8092-9, 74488-2, 48039-7, 51432-5, 77296-7, 36824-6 #### [facility] ([id number]) [address], [address] [place] [address] IgG [Mass/Vol] 992 mg/dL Normal 635-1741 [facility] Comment on above: Performed By: #### C BCA, CMP, 1987-12, FEPR, 227-4, 2284-8, 58692-8, 2132-9, 79969-7, 82833-2, 5130-0, 23435-5, 83819-4, 23901-1, 3357-1, 8092-9, 35182-7, 24040-2, 80183-0, 19131-4, 75287-1 #### [facility] ([id number]) [facility]0 [facility], [address] [place] [address] IgM [Mass/Vol] 285 mg/dL High 45-281 [facility] Comment on above: Performed By: #### C BCA, CMP, 1987-12, FEPR, 227-4, 2284-8, 81523-9, 2132-9, 50695-0, 91624-1, 5130-0, 95446-8, 78328-7, 65421-1, 3357-1, 8092-9, 62875-3, 30963-5, 15230-7, 44950-5, 93512-5 #### [facility] ([id number]) [facility]0 [facility] [place] [id number] IMMUNE PROFILE INTERP SEE SEPARATE REPORT Normal [facility] Comment on above: Performed By: #### C BCA, CMP, 1987-12, FEPR, 227-4, 2284-8, 82508-1, 2132-9, 18104-6, 02716-3, 5130-0, 80150-0, 90530-1, 64613-3, 3357-1, 8092-9, 87557-6, 80119-4, 11569-8, 50679-3, 90328-6 #### [facility] ([id number]) [address], [address] [place] [address] IRON PROFILEon 09-23-2023 Iron [Mass/Vol] 25 ug/dL Low 50-170 [facility] Comment on above: Performed By: #### C BCA, CMP, 1987-12, FEPR, 2276-4, 2284-8, 34298-6, 2132-9, 58544-1, 63159-0, 5130-0, 30347-9, 61220-7, 00047-8, 3357-1, 8092-9, 56638-9, 17222-9, 26735-0, 71690-6, 94005-5 #### [facility] ([id number]) [address] [facility], [address] [place] [address] IRON BINDING 179 ug/dL Low 250-425 [facility] Comment on above: Performed By: #### C BCA, CMP, 1987-, FEPR, 2276-4, 2284-8, 34811-3, 2132-9, 81297-9, 48253-6, 5130-0, 62220-3, 26915-8, 34036-0, 3357-1, 8092-9, 25397-7, 98299-5, 10511-6, 02865-7, 75050-4 #### [facility] ([id number]) [address] [facility], [address] [address] IRON SATURATION 14 % SATURATION Low 15-50 [facility] Comment on above: Performed By: #### C BCA, CMP, 1987-12, FEPR, 2276-4, 2284-8, 47886-8, 2132-9, 54189-6, 77036-6, 5130-0, 13878-4, 22807-9, 54160-1, 3357-1, 8092-9, 99607-4, 83879-0, 77340-1, 80832-9, 86875-5 #### [facility] ([id number]) [address] [place] [address], [address] [address] Iron and TIBCon 09-23-2023 Interpretation and review of laboratory results Abnormal [facility] Iron [Mass/Vol] 25 ug/dL Low 50 - 170 ug/dL [facility] Iron binding capacity [Mass/Vol] 179 ug/dL Low 250 - 425 ug/dL [facility] Iron saturation [Mass fraction] 14 Low [facility] JAK2 gene p.Gng940Lxc Molgen Ql (Bld/Tiss)on 09-23-2023 JAK2 V617F MUTATION, BLOOD SEE COMMENTS 09/26/2023 10:21 AM Normal [facility] Comment on above: Result Comment: NOTE Test Result Flag Unit RefValue ----- JAK2 V617F Mutation Detection, B JAK2 Result see interpretation JAK2 V617F Mutation Detection, B See Note Peripheral blood, JAK2 V617F mutation analysis: Negative for JAK2 V617F. A negative [id number] test result does not exclude the possibility [...] Food and Drug Administration. Test Performed by: [facility] - [address] [address] Digital Performance Analyst: Thierry Duran M.D. Ph.D.; CLIA# [id number] Performed By: #### C BCA, CMP, 1988-5, FEPR, 2276-4, 2284-8, 86750-7, 2132-9, 66199-2, 34360-3, 5130-0, 02841-5, 54521-7, 45802-9, 3357-1, 8092-9, 26519-0, 95457-0, 41017-7, 46698-9, 58748-1 #### [facility] ([id number]) [address] [facility] [address], [address] [place] [address] Tiki 1 AB IGGon 09-23-2023 Anileridine Ql (U) NINF [facility] LDHon 09-23-2023 LDH [Catalytic activity/Vol] 140 U/L 100 - 235 U/L [facility] LDH [Catalytic activity/Vol] on 09-23-2023 [facility] LDH 140 U/L Normal 100-235 [facility] Comment on above: Performed By: #### C BCA, CMP, 1988-5, FEPR, 2276-4, 2284-8, 72108-7, 2132-9, 18446-5, 65196-5, 5130-0, 80971-7, 06470-4, 18290-6, 3357-1, 8092-9, 05207-6, 21307-3, 12745-6, 89081-6, 62972-7 #### [facility] ([id number]) [address] [place] [address], [address] [place] [address] Methylmalonate [Moles/Vol]on 09-23-2023 MMA QN 0.23 umol/L Normal <=0.40 [facility] Comment on above: Result Comment: NOTE This test was developed and its performance characteristics determined by [facility]'s Gilbert JMoises [facility] [place] ([facility]). It has not been cleared or approved by the FDA. -[facility] is regulated under CLIA as qualified to perform high-complexity testing. This test is used for clinical purposes. It should not be regarded as investigational or for research. Test Performed By: [place] [address] Fax Machine Repairer: Meño Hernandez III, M.D. CLIA #[id number] Narrative diagnostic report Molgen Yaw (Bld/Tiss) [Interp]on 09-23-2023 BCR/ABL PCR w/Reflex SEE COMMENTS 2023 04:24 PM Normal [facility] Comment on above: Result Comment: NOTE Test Result Flag Unit RefValue ----- BCR/ABL1 Reflex, Qual/Quant Specimen Type EDTA WHOLE BLOOD BCR/ABL1 Reflex Result see interpretation Interpretation See Note Peripheral blood, BCR/ABL1 mRNA analysis, qualitative: Negative. No BCR/ABL1 mRNA transcripts were detected. Method summary: The presence or absence of BCR/ABL1 mRNA transcripts was evaluated using a qualitative, reverse executive talent acquisition consultant PCR-based assay. The assay detects nearly all published and theoretical BCR/ABL1 fusion forms including the common e13/e14-a2 (p210) and e1-a2 (p190) transcripts, as well as other rarer variants (e.g. e19-a2 (p230), e13/e14-a3, e1-a3, etc.). The limit of detection for this assay is 0.1%. Please contact the lab at [phone] with questions or if additional testing is required. See [facility] Test Catalog for additional method details. Signing Pathologist: Ammon Titus M.D. (Jane), Ph.D. ADDITIONAL INFORMATION This test was developed and its performance characteristics determined by [facility] in a manner consistent with CLIA requirements. This test has not been cleared or approved by the U.S. Food and Drug Administration. Test Performed by: [address] [address] Digital Performance Analyst: Thierry Duran M.D. Ph.D.; CLIA# [id number] Neutrophil cytoplasmic Ab IF Ql (S)on 09-23-2023 ANCA See Below Normal [facility] Comment on above: [...] See below Reviewed by Arun Tucker, Ph.D D([facility]) This test is used as an aid in diagnosis of patients with autoimmune vasculitidies. The final interpretation should be done in conjunction with ANCA test results and clinical correlation. Test Performed By: [place] [address] Fax Machine Repairer: Meño Hernandez III, M.D. [facility] #[id number] No Panel Informationon 09-23 [facility] Interpretation and review of laboratory results Abnormal [facility] Nuclear Ab IA Ql (S)on 09-23 Interpretation and review of laboratory results Abnormal [facility] SILVIA Screen w/reflex Positive Abnormal NEG [facility] Comment on above: Result Comment: Testing performed using multiplex flow immunoassay. Eleven different antigens associated with systemic autoimmune diseases (dsDNA,Sm,Sm/ARMED SECURITY PROFESSIONAL,ARMED SECURITY PROFESSIONAL,Chromatin, SSA,SSB,Tiki-1,Scl70,Ribo P,Centromere B) are included in this screening test. Performed By: #### C BCA, CMP, 1988-5, FEPR, 2276-4, 2284-8, 15634-4, 2132-9, 07752-1, 36986-7, 5130-0, 09992-2, 68149-9, 19792-3, 3357-1, 8092-9, 91452-5, 07192-7, 90127-9, 21752-8, 37786-1 #### [facility] ([id number]) [address] [place] [address], [address] [place] [address] comment (Bld) [Interp]on 09-23-2023 STAFF REVIEW NOTE Normal [facility] Comment on above: Result Comment: [facility] [address] [place] [address] Clinical Pathology Report Patient Name:JOSE DAVID:1945 (Age: 78)Gender:FTaken:09/23/2023eported:09/26/2023hysician(s):Olga Pan M.D. ([phone])Copy To: Rec. #:[id number]: #[id number] Final Pathologic Diagnosis Peripheral blood smear: Neutrophilic [...] Out hna/09/26/2023Og Martinez M.D. Interpretation performed at [facility] [employer], [address] [place] [address], License number: [id number]. Clinical History R29.9. BLOOD SMEAR EVALUATION CBC (09/23/2023 0818): WBC = 12.1 X10E9/L; HGB = 9.1 g/dL; HCT = 27.8%; MCV = 85 fL; PLT = 924 X10E9/L OTHER LAB DATA: Noncontributory. BLOOD SMEAR: Leukocytes: Neutrophilic leukocytosis with cytotoxic changes and lymphocytopenia. Erythrocytes: Moderate normocytic normochromic anemia. Platelets: Thrombocytosis. Specimen(s) Received Blood Smear Review Fee Codes(s): 1; 42717 Performed By: #### C KELVIN EARLY, 1987-12, FEPR, 6-4, 2284-8, 71713-9, 2132-9, 33768-4, 32088-4, 5130-0, 16641-6, 18296-8, 52422-9, 3357-1, 8092-9, 45657-1, 57107-3, 14128-3, 89713-1, 93343-5 #### [facility] ([id number]) [address] [facility] [address], [address] [place] [address] ARMED SECURITY PROFESSIONAL AB IgGon 09-23-2023 Ribonucleoprotein extractable nuclear IgG Qn (S) [facility] Comment on above: CLIA ID [id number] Rheumatoid factoron 09-23-19 24 Rheumatoid factor Nephelometry Qn (S) 21 High [facility] Rheumatoid factor Nephelomet ry Qn (S)on 09-23-2023 Interpretation and review of laboratory results Abnormal [facility] RHEUMATOID FACTOR 21 IU/mL High <20 [facility] Comment on above: Performed By: #### C KELVIN EARLY, 1987-12, FEPR, 6-4, 2284-8, 78568-0, 2132-9, 32762-5, 36024-1, 5130-0, 87584-3, 34860-7, 11615-9, 3357-1, 8092-9, 82447-3, 53178-6, 46416-0, 48139-0, 84523-8 #### [facility] ([id number]) [address], [address] [place] [address] Ribonucleoprotein extractabl e nuclear IgG Qn (S)on 09-23-2023 ARMED SECURITY PROFESSIONAL ANTIBODY IGG <0.2 Normal <1.0 [facility] Comment on above: Performed By: #### C KELVIN EARLY, 1987-12, FEPR, 2276-4, 2284-8, 20836-2, 2132-9, 13593-6, 41938-8, 5130-0, 89691-1, 37272-0, 12928-6, 3357-1, 8092-9, 98202-5, 51322-8, 44616-2, 23354-0, 18856-4 #### [facility] ([id number]) [address] [place] [address], [address] [place] [address] Ribosomal P IgG Qn (S)on RIBOSOME P ANTIBODY <0.2 Normal <1.0 [facility] Comment on above: Performed By: #### C BCA, CMP, 1987-12, FEPR, 2275-4, 2284-8, 15001-4, 2132-9, 89562-2, 50528-4, 5130-0, 43234-6, 82297-6, 74288-1, 3357-1, 8092-9, 84895-8, 67430-6, 25158-7, 64248-9, 58022-0 #### [facility] ([id number]) [address] [place] [address], [address] [place] [address] SCL-70 extractable nuclear A b Ql (S)on 09-23-2023 SCL 70 ANTIBODY <0.2 Normal <1.0 [facility] Comment on above: Performed By: #### C BCA, CMP, 1987-12, FEPR, 2275-4, 2284-8, 49927-5, 2132-9, 16472-6, 80457-1, 5130-0, 38025-3, 40330-3, 37214-6, 3357-1, 8092-9, 22279-9, 25352-0, 30572-7, 15748-3, 47499-7 #### [facility] ([id number]) [address] [place] [address], [address] [place] [address] SERUM PROTEIN ELECTROPHORESI Son 09-23-2023 Albumin [Mass/Vol] 2.5 g/dL Low 3.4-5.3 [facility] Comment on above: Performed By: #### C SHARATH, KELVIN, 1987-12, FEPR, 2276-4, 2284-8, 36796-5, 2132-9, 49213-0, 77894-5, 5130-0, 84544-4, 52844-0, 70673-5, 3357-1, 8092-9, 00208-5, 33389-6, 82265-3, 68352-1, 72012-0 #### [facility] ([id number]) [address], [address] [place] [address] ALPHA 1 GLOBULIN 0.6 g/dL High 0.1-0.4 [facility] Comment on above: Performed By: #### C SHARATH, KELVIN, 1987-12, FEPR, 2275-, 2283-8, 10286-7, 2131-9, 57692-3, 17242-2, 5130-0, 89671-7, 64489-3, 00238-5, 3357-1, 8092-9, 05805-9, 31921-1, 71570-1, 05759-4, 27375-2 #### [facility] ([id number]) [address], [address] [place] [address] ALPHA 2 GLOBULIN 1.2 g/dL High 0.4-1.1 [facility] Comment on above: Performed By: #### C SHARATH, CMP, 1987-12, FEPR, 2275-4, 2284-8, 13961-9, 2132-9, 68952-1, 16162-0, 5130-0, 29226-3, 77454-5, 53766-7, 3357-1, 8092-9, 62495-0, 69727-0, 49632-5, 11615-9, 72517-3 #### [facility] ([id number]) [address], [address] [place] [address] BETA GLOBULIN 0.8 g/dL Normal 0.5-1.2 [facility] Comment on above: Performed By: #### C SHARATH, KELVIN, 1987-12, FEPR, 2276-4, 2284-8, 75562-9, 2132-9, 64353-0, 36368-6, 5130-0, 81205-3, 75127-9, 59982-1, 3357-1, 8092-9, 16555-7, 16995-9, 85681-5, 92385-1, 46706-2 #### [facility] ([id number]) [address], [address] [place] [address] GAMMA GLOBULIN 1.0 g/dL Normal 0.5-1.6 [facility] Comment on above: Performed By: #### C KELVIN EARLY, 1987-12, FEPR, 2275-4, 2284-8, 59894-3, 2132-9, 09642-8, 24918-6, 5130-0, 46413-9, 90410-0, 96090-3, 3357-1, 8092-9, 76106-8, 64006-7, 76354-8, 49528-5, 38613-8 #### [facility] ([id number]) [address], [address] [place] [address] PROT. ELECTROPHORESIS INTERP SEE SEPARATE REPORT Normal [facility] Comment on above: Performed By: #### C SHARATH, KELVIN, 1987-12, FEPR, 227-4, 2284-8, 68852-8, 2132-9, 69489-1, 81393-4, 5130-0, 48237-6, 61808-9, 81757-3, 3357-1, 8092-9, 88096-4, 04996-9, 16406-8, 52876-2, 49178-1 #### [facility] ([id number]) [address], [address] [place] [address] Protein [Mass/Vol] 6.1 g/dL Normal 6.0-8.0 [facility] Comment on above: Performed By: #### C SHARATH, [facility], 1987-12, FEPR, 2275-4, 4-8, 40744-6, 2132-9, 18734-6, 06250-2, 5130-0, 83823-4, 43883-4, 02484-9, 3357-1, 8092-9, 59604-2, 74758-0, 56462-8, 14287-1, 12288-0 #### [facility] ([id number]) [address] [place] [address], [facility] [address] [place] [address] SSA antibodyon 09-23-2023 Sjogrens syndrome-A extractable nuclear Ab Qn (S) [facility] Comment on above: CLIA ID [id number] SSB Antibodyon 09-23-2023 Sjogrens syndrome-B extractable nuclear IgG Qn (S) [facility] Comment on above: CLIA ID [id number] Scleroderma antibodyon 09-23 SCL-70 extractable nuclear Ab Ql (S) [facility] Comment on above: CLIA ID [id number] Sjogrens syndrome-A extracta ble nuclear Ab Qn (S)on 09-23-2023 SSA ANTIBODY <0.2 Normal <1.0 [facility] Comment on above: Performed By: #### C SHARATH, [facility], 1986-, FEPR, 2275-4, 4-8, 10718-5, 2-9, 61313-7, 64068-8, 5130-0, 69481-5, 95055-5, 11110-2, 3357-1, 8092-9, 23429-2, 03080-7, 48430-6, 02878-7, 28910-0 #### [facility] ([id number]) [address] [place] [address], [address] [place] [address] Sjogrens syndrome-B extracta ble nuclear IgG Qn (S)on 09-23-2023 SSB ANTIBODY <0.2 Normal <1.0 [facility] Comment on above: Performed By: #### C SHARATH, [facility], 1987-12, FEPR, 2276-4, 2284-8, 55854-2, 2132-9, 87081-6, 49695-1, 5130-0, 01303-5, 43863-7, 11809-8, 3357-1, 8092-9, 66328-3, 55981-0, 75750-2, 39049-5, 01546-6 #### [facility] ([id number]) [address] [place] [address], [address] [place] [address] Mejia extractable nuclear Ab +Ribonucleoprotein extractable nuclear IgG Qn (S)on 09-23-2023 MEJIA/ARMED SECURITY PROFESSIONAL AB IGG <0.2 Normal <1.0 [facility] Comment on above: Performed By: #### C SHARATH, [facility], 1987-12, FEPR, 2275-, 2284-8, 74412-1, 2132-9, 19557-2, 92246-8, 5130-0, 99367-0, 26915-6, 40504-6, 3357-1, 8092-9, 43867-4, 63319-8, 38009-7, 68320-6, 85763-1 #### [facility] ([id number]) [address] [place] [address], [address] [place] [address] Mejia extractable nuclear Ig G Qn (S)on 09-23-2023 ANTI-MEJIA AB IGG <0.2 Normal <1.0 [facility] Comment on above: Performed By: #### C SHARATH, [facility], 1987-12, FEPR, 2275-4, 2284-8, 91732-2, 2132-9, 16552-5, 15302-4, 5130-0, 33353-4, 41696-6, 59360-0, 3357-1, 8092-9, 12087-9, 23736-0, 89322-9, 39173-6, 96327-2 #### [facility] ([id number]) [address] [facility] [facility], [address] [place] [address] Mejia/ARMED SECURITY PROFESSIONAL AB IgGon 4 Mejia extractable nuclear Ab+Ribonucleoprotein extractable nuclear IgG Qn (S) NINF [facility] Surgical Pathologyon 024 Surgical Pathology Normal [facility] Comment on above: Result Comment: [facility] [address] [place], [place] [address] Flow Cytometry Patient Name:JOSE DAVIDAccession #:[id number]. Rec. #:[id number]:[facility] HospitalTaken:4DOB:1945 (Age: 78)Location:TTH GEN 8 ACUTE J981Kmvawvlr:09/23/2023Gender: FBill. Type:ToledoReported:Priority:RBilling #:[id number] Class:TTH Special Procedure OnlyPhysician(s): Charlene Chan MD [...] patterns of antigen expression are not seen. Brinson on the lymphoid population demonstrates a mixed population of phenotypically unremarkable T-cells, natural killer cells, and polyclonal B-cells, without a detectable monoclonal population. Immunophenotyping antibodies tested: CD2, CD3, CD4, CD5, CD7, CD8, CD10, CD13, CD16, CD19, CD20, CD23, CD33, CD34, CD38, CD43, CD45, CD56, CD117, CD123, CD138, [place], and Lambda. Immunophenotyping Comment: Immunophenotyping has been used in this diagnostic evaluation. This test was developed and its performance characteristics determined by the [facility] Department. It has not [...] (Vitamin B12) [Mass/Vol] 248 pg/mL Normal 180-914 [facility] Comment on above: Performed By: #### C SHARATH CMP, 1987-12, FEPR, 2276-4, 2284-8, 34351-3, 2132-9, 95877-9, 91610-6, 5130-0, 77841-2, 90385-7, 03016-8, 3357-1, 8092-9, 35002-6, 44003-5, 81309-9, 03484-4, 52786-9 #### [facility] ([id number]) [address] [place] [address], [address] [place] [address] Vitamin B12on 09-23-2023 Cobalamin (Vitamin B12) [Mass/Vol] 248 pg/mL 180 - 914 pg/mL [facility] dRVVT/dRVVT.excess phospholi pid Coag (PPP) [Ratio]on 09-23-2023 DILUTE KORI'S VIPER VENOM Negative Normal [facility] Comment on above: Performed By: #### C BCA, CMP, 1987-12, FEPR, 227-4, 2284-8, 39741-9, 2132-9, 26721-2, 14606-3, 5130-0, 42674-6, 50957-7, 75300-5, 3357-1, 8092-9, 58255-4, 83864-0, 68760-7, 25464-3, 83458-6 #### [facility] ([id number]) [address], [address] [place] [address] CT LESTER WO CONon 3 CT LESTER CONNOLLY CON EXAM: CT scan of the cervical [...] by: SHANTELL GARCIA Date: 2022-12-25 08:[address] [facility] XR KNEE RT 4V or >on [...] lateral and patellofemoral compartments where there is mvqd-oj-uxrr contact. 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 Electronically authenticated by: KARAN JENKINS Date: 2022-04-25 19:[address] [facility] Patient Educationon 09-10-19 22 Patient Education [...] height. This can be done either in Afghan ([place] or metric measurements. Note that charts are available to help you find your BMI quickly and easily without having to do these calculations yourself. To calculate your BMI in Afghan ([place] measurements, your health care provider will: [...] problems. ? BMI can be measured using Afghan measurements or metric measurements. ? To interpret [...] 04/22/2005 Document Revised: 07/24/2018 Document Reviewed: 06/24/2018 [employer] Patient Education ? 2020 [employer]. Obstetrics and Gynecology Overactive Bladder, Adult Overactive [...] A spina (more content not included)... Normal [facility] 09-10-[address] [facility] [id number]#1.00C D:127 Normal [facility] [id number]#1.00C D:[address] [facility] Urology Office/Clinic Noteon 09-10-2021 Urology Office/Clinic Note [...] genitourinary system) Interesting patient still working at [employer] which came here the store when I [...] Miner Within 1 year, only if needed [address] [place], [place] [id number] Additional Instructions: Patient Education BMI for Adults [...] Protein Urine Dipstick: Negative (09/10/21 08:26:00) Specific [place] Urine Dipstick: 1.025 (09/10/21 08:26:00) Urine Appearance Urine Dipstick: Clear (09/10/21 08:26:00) Urine Color Urine Dipstick: Yellow (09/10/21 08:26:00) Urobilinogen Urine Dipstick: Normal 0.2-1 EU/dl (09/10/21 08:26:00) pH Urine Dipstick: 5 (09/10/21 08:26:00) Normal [facility] Comment on above: Result Comment: Elec tronically Signed By: Gilbert NAPOLES MD\.br\Date and Time Signed: 09/10/21 08:49 EST\.br\Electronically Co-Signed By: Aurora Hdz MA\.br\Date and Time Co-Signed: 09/10/21 08:46 EST Physician Orderon 09-07-2021 Physician Order [id number]#1.00C D:127 Normal [facility] Vital Signs Date Time Vital Sign Value Performing Clinician Facility 01-24-2025 09:48-0400 Body height 157.5 cm Myra Cota APRN-SUPERVISOR FELTING Work Phone: [facility] [employer] [facility] 01-24-2025 09:48-0400 Body mass index (BMI) [Ratio] 25.27 kg/m2 Mrya Cota APRN-SUPERVISOR FELTING Work Phone: [facility] 01-24-2025 09:48-0400 Body temperature 98.01 [degF] Myra Samy GATE WATCH-SUPERVISOR [employer]TING Work Phone: [facility] 01-24-2025 09:48-0400 Body weight 62.69 kg Myra Samy GATE WATCH-SUPERVISOR [employer]ELTING Work Phone: [facility] 01-24-2025 09:48-0400 Diastolic blood pressure 69 mm[Hg] Myra Samy GATE WATCH-SUPERVISOR [employer]ELTING Work Phone: [facility] 01-24-2025 09:48-0400 Heart rate 90 /min Myra Samy GATE WATCH-SUPERVISOR [employer]ELTING Work Phone: [facility] 01-24-2025 09:48-0400 Respiratory rate 16 /min Myar Samy GATE WATCH-SUPERVISOR [employer]TING Work Phone: [facility] 01-24-2025 09:48-0400 SaO2% (BldA) [Mass fraction] 98 % Myra Samy GATE WATCH-SUPERVISOR [employer]ELTING Work Phone: [facility] 01-24-2025 09:48-0400 Systolic blood pressure 139 mm[Hg] Myra Samy GATE WATCH-SUPERVISOR [employer]ELTING Work Phone: [facility] 12-16-2024 13:54-0400 Body height 152.4 cm [facility] 12-16-2024 13:54-0400 Body mass index (BMI) [Ratio] 26.5 kg/m2 [facility] 12-16-2024 13:54-0400 Body temperature 98.3 [degF] [facility] 12-16-2024 13:54-0400 Body weight 61.68 kg [facility] 12-16-2024 13:54-0400 Diastolic blood pressure 78 mm[Hg] [facility] 12-16-2024 13:54-0400 Heart rate 106 /min [facility] 12-16-2024 13:54-0400 SaO2% (BldA) [Mass fraction] 97 % [facility] 12-16-2024 13:54-0400 Systolic blood pressure 120 mm[Hg] [facility] 10-13-2024 14:35-0500 Body height 152.4 cm [facility] 10-13-2024 14:35-0500 Body mass index (BMI) [Ratio] 26.4 kg/m2 [facility] 10-13-2024 14:35-0500 Body temperature 96 [degF] [facility] 10-13-2024 14:35-0500 Body weight 61.46 kg [facility] 10-13-2024 14:35-0500 Diastolic blood pressure 80 mm[Hg] [facility] 10-13-2024 14:35-0500 Heart rate 82 /min [facility] 10-13-2024 14:35-0500 SaO2% (BldA) [Mass fraction] 97 % [facility] 10-13-2024 14:35-0500 Systolic blood pressure 126 mm[Hg] [facility] 10-11-2024 09:31-0500 Body height 157.5 cm Myra Cota APRN-SUPERVISOR FELTING Work Phone: [facility] 10-11-2024 09:31-0500 Body mass index (BMI) [Ratio] 24.58 kg/m2 Myra Cota APRN-[employer] Work Phone: [facility] 10-11-2024 09:31-0500 Body temperature 97.81 [degF] Myra Cota APRN-[employer]PER[employer] Work Phone: [facility] 10-11-2024 09:31-0500 Body weight 60.96 kg Myra Cota APRN-[employer] Work Phone: [facility] 10-11-2024 09:31-0500 Diastolic blood pressure 76 mm[Hg] Myra Cota APRN-[employer]PER[employer] Work Phone: [facility] 10-11-2024 09:31-0500 Heart rate 76 /min Myra Cota APRN-[employer]PER[employer] Work Phone: [facility] 10-11-2024 09:31-0500 Respiratory rate 18 /min Myra Cota APRN-[employer] Work Phone: [facility] 10-11-2024 09:31-0500 SaO2% (BldA) [Mass fraction] 100 % Myra Cota [employer] Work Phone: [facility] 10-11-2024 09:31-0500 Systolic blood pressure 152 mm[Hg] Myra Cota APRN-SUPER[employer] Work Phone: [facility] 07-12-2024 13:05-0500 Body height 152.4 cm [facility] 07-12-2024 13:05-0500 Body mass index (BMI) [Ratio] 26 kg/m2 [facility] 07-12-2024 13:05-0500 Body temperature 97.3 [degF] [facility] 07-12-2024 13:05-0500 Body weight 60.44 kg [facility] 07-12-2024 13:05-0500 Diastolic blood pressure 72 mm[Hg] [facility] 07-12-2024 13:05-0500 Heart rate 90 /min [facility] 07-12-2024 13:05-0500 SaO2% (BldA) [Mass fraction] 96 % [facility] 07-12-2024 13:05-0500 Systolic blood pressure 118 mm[Hg] [facility] 04-13-2024 10:47-0400 Body height 152.4 cm [facility] 04-13-2024 10:47-0400 Body mass index (BMI) [Ratio] 25.7 kg/m2 [facility] 04-13-2024 10:47-0400 Body weight 59.87 kg [facility] 04-13-2024 10:47-0400 Diastolic blood pressure 76 mm[Hg] [facility] 04-13-2024 10:47-0400 Heart rate 81 /min [facility] 04-13-2024 10:47-0400 SaO2% (BldA) [Mass fraction] 99 % [facility] 04-13-2024 10:47-0400 Systolic blood pressure 122 mm[Hg] [facility] 02-05-2024 11:56-0400 Body mass index (BMI) [Ratio] 23.92 kg/m2 Mouna Bautista MD Work Phone: [facility] 02-05-2024 11:56-0400 Body weight 59.33 kg Mouna Bautista MD Work Phone: [facility] 02-05-2024 11:56-0400 Diastolic blood pressure 81 mm[Hg] Mouna Bautista MD Work Phone: [facility] 02-05-2024 11:56-0400 Heart rate 78 /min Mouna Bautista MD Work Phone: [facility] 02-05-2024 11:56-0400 SaO2% (BldA) [Mass fraction] 96 % Mouna Bautista MD Work Phone: [facility] 02-05-2024 11:56-0400 Systolic blood pressure 136 mm[Hg] Mouna Bautista MD Work Phone: [facility] 01-02-2024 13:46-0400 Body height 157.5 cm Mahnaz Ochoa MD Work Phone: [facility] 01-02-2024 13:46-0400 Body mass index (BMI) [Ratio] 23.5 kg/m2 Mahnaz Ochoa MD Work Phone: [facility] 01-02-2024 13:46-0400 Body weight 58.29 kg Mahnaz Ochoa MD Work Phone: [facility] 01-02-2024 13:46-0400 Diastolic blood pressure 86 mm[Hg] Mahnaz Ochoa MD Work Phone: [facility] 01-02-2024 13:46-0400 Heart rate 86 /min Mahnaz Ochoa MD Work Phone: [facility] 01-02-2024 13:46-0400 Systolic blood pressure 152 mm[Hg] Mahnaz Ochoa MD Work Phone: [facility] 12-29-2023 09:05-0400 Body height 152.4 cm [facility] 12-29-2023 09:05-0400 Body mass index (BMI) [Ratio] 25.4 kg/m2 [facility] 12-29-2023 09:05-0400 Body temperature 97.5 [degF] [facility] 12-29-2023 09:05-0400 Body weight 58.96 kg [facility] 12-29-2023 09:05-0400 Heart rate 86 /min [facility] 12-29-2023 09:05-0400 Respiratory rate 16 /min [facility] 12-29-2023 09:05-0400 SaO2% (BldA) [Mass fraction] 96 % [facility] 11-06-2023 15:01-0400 Body height 157.5 cm Adam Anna MD Work Phone: [facility] 11-06-2023 15:01-0400 Body mass index (BMI) [Ratio] 22.09 kg/m2 Adam Anna MD Work Phone: [facility] 11-06-2023 15:01-0400 Body temperature 98.6 [degF] Adam Anna MD Work Phone: [facility] 11-06-2023 15:01-0400 Body weight 54.8 kg Adam Anna MD Work Phone: [facility] 11-06-2023 15:01-0400 Diastolic blood pressure 65 mm[Hg] Adam Anna MD Work Phone: [facility] 11-06-2023 15:01-0400 Heart rate 109 /min Adam Anna MD Work Phone: [facility] 11-06-2023 15:01-0400 Respiratory rate 24 /min Adam Anna MD Work Phone: [facility] 11-06-2023 15:01-0400 SaO2% (BldA) [Mass fraction] 97 % Adam Anna MD Work Phone: [facility] 11-06-2023 15:01-0400 Systolic blood pressure 151 mm[Hg] Adam Anna MD Work Phone: [facility] 10-16-2023 11:04-0500 Body height 152.4 cm [facility] 10-16-2023 11:04-0500 Body mass index (BMI) [Ratio] 23.6 kg/m2 [facility] 10-16-2023 11:04-0500 Body weight 54.88 kg [facility] 10-16-2023 11:04-0500 Diastolic blood pressure 72 mm[Hg] [facility] 10-16-2023 11:04-0500 Heart rate 88 /min [facility] 10-16-2023 11:04-0500 SaO2% (BldA) [Mass fraction] 98 % [facility] 10-16-2023 11:04-0500 Systolic blood pressure 134 mm[Hg] [facility] 10-16-2023 09:50-0500 Diastolic blood pressure 74 mm[Hg] Mouna Bautista MD Work Phone: [facility] 10-16-2023 09:50-0500 Heart rate 72 /min Mouna Bautista MD Work Phone: [facility] 10-16-2023 09:50-0500 Systolic blood pressure 140 mm[Hg] Mouna Bautista MD Work Phone: [facility] 10-16-2023 09:49-0500 Body height 157.5 cm Mouna Bautista MD Work Phone: [facility] 10-16-2023 09:49-0500 Body mass index (BMI) [Ratio] 21.51 kg/m2 Mouna Bautista MD Work Phone: [facility] 10-16-2023 09:49-0500 Body weight 53.34 kg Mouna Bautista MD Work Phone: [facility] 10-16-2023 09:49-0500 Respiratory rate 18 /min Mouna Bautista MD Work Phone: [facility] 09-26-2023 15:31-0500 Body temperature 98.2 [degF] Bart Milian MD Work Phone: [facility] 09-26-2023 15:31-0500 Heart rate 103 /min Bart Milian MD Work Phone: [facility] 09-26-2023 15:31-0500 Respiratory rate 16 /min Bart Milian MD Work Phone: [facility] 09-26-2023 15:31-0500 SaO2% (BldA) [Mass fraction] 96 % Bart Milian MD Work Phone: [facility] 09-26-2023 07:20-0500 Diastolic blood pressure 84 mm[Hg] [facility] 09-26-2023 07:20-0500 Systolic blood pressure 152 mm[Hg] Bart Milian MD Work Phone: [facility] [employer] [facility] 09-24-2023 13:40-0500 Body height 157.5 cm Bart Milian MD Work Phone: [facility] 09-24-2023 13:40-0500 Body mass index (BMI) [Ratio] 21.21 kg/m2 Bart Milian MD Work [facility] 09-24-2023 13:40-0500 Body weight 52.6 kg Bart Milian MD Work Phone: [facility] [employer] [facility] Encounters Encounter Date Encounter Type Care Provider Facility Start: 01-24-2025 End: 01-24-2025 Office outpatient visit 25 minutes Myra Cota APRN-SUPERVISOR [employer] Work Phone: Adelaida Hobbs [place] [facility] - Medical Oncology Comment on above: Iron deficiency (Kathleen vinh Dx); Normocytic anemia; Thrombocytosis; Anemia, unspecified type Start: 01-24-2025 End: 01-24-2025 ambulatory [facility] Start: 12-16-2024 End: 12-16-2024 ambulatory [facility] Work Phone: Start: 12-16-2024 End: 12-16-2024 Patient encounter procedure [facility] Work Phone: Start: 12-10-2024 Non-patient / Non-visit [facility] Work Phone: Start: 12-10-2024 Non-patient / Non-visit [facility] Work Phone: Start: 11-22-2024 Non-patient / Non-visit [facility] Work Phone: Start: 11-06-2024 Non-patient / Non-visit [facility] Work Phone: Start: 10-13-2024 End: 10-13-2024 [facility] Work Phone: Start: 10-13-2024 End: 10-13-2024 Patient encounter procedure [facility] Work Phone: Start: 10-11-2024 End: 10-11-2024 Office outpatient visit 40 minutes Myra Marisol MontillaSamy [employer] Work Phone: Adelaida Hobbs [place] [facility] - Medical Oncology Comment on above: Normocytic anemia (P rimary Dx); Thrombocytosis; Anemia, unspecified type; Iron deficiency; Giant cell arteritis ([facility]); Vision blurred Start: 10-11-2024 End: 10-11-2024 ambulatory [facility] Start: 10-06-2024 End: 10-06-2024 ambulatory [facility] Start: 09-02-2024 Non-patient / Non-visit [facility] Work Phone: Start: 07-16-2024 End: 07-16-2024 Patient encounter procedure [facility] Work Phone: Start: 07-12-2024 End: 07-12-2024 ambulatory [facility] Work Phone: Start: 07-12-2024 End: 07-12-2024 Patient encounter procedure [facility] Work Phone: Start: 07-07-2024 Non-patient / Non-visit [facility] Work Phone: Start: 05-05-2024 End: 05-05-2024 ambulatory [facility] Start: 04-30-2024 Non-patient / Non-visit [facility] Work Phone: Start: 04-14-2024 Patient encounter procedure [facility] Start: 04-13-2024 End: 04-13-2024 ambulatory [facility] Work Phone: Start: 04-13-2024 End: 04-13-2024 Patient encounter procedure [facility] Work Phone: Start: 03-08-2024 End: 03-08-2024 Orders Only Roxie aguiar [place] - Medical Oncology Comment on above: Normocytic anemia (P rimary Dx); Thrombocytosis; Anemia, unspecified type Start: 03-05-2024 Non-patient / Non-visit [facility] Work Phone: Start: 02-05-2024 End: 02-05-2024 Office outpatient visit 10 minutes Mouna Bautista MD Work Phone: [facility] Comment on above: Giant cell arteritis ([facility]-H[facility]) (Primary Dx) Start: 02-05-[address] [facility] Start: 01-28-2024 End: 01-28-2024 ambulatory JT JASSO [facility] Start: 01-02-2024 End: 01-02-2024 ambulatory MAHNAZ OCHOA [facility] Start: 01-02-2024 End: 01-02-2024 Office outpatient visit 25 minutes Mahnaz Ochoa MD Work Phone: [facility] Comment on above: Giant cell arteritis (CMS-HCC) (Primary Dx) Start: 12-29-2023 End: 12-29-2023 ambulatory [facility] Work Phone: Start: 12-29-2023 End: 12-29-2023 Patient encounter procedure [facility] Work Phone: Start: 12-29-2023 Non-patient / Non-visit [facility] Work Phone: Start: 11-06-2023 End: 11-06-2023 Office outpatient visit 40 minutes Adam Anna MD Work Phone: Adelaida Hobbs [facility] - Medical Oncology Comment on above: Normocytic anemia (P rimary Dx); Thrombocytosis Start: 11-06-2023 Orders Only Malinda Hobbs [facility] - Medical Oncology Comment on above: Giant cell arteritis ([facility]) (Primary Dx); Stroke-like symptoms; Vision blurred; Anemia, unspecified type Start: 10-30-2023 Non-patient / Non-visit [facility] Work Phone: Start: 10-17-2023 Telephone encounter Beronica Loya [facility] Comment on above: Med Refill Start: 10-16-2023 End: 10-16-2023 ambulatory [facility] Work Phone: Start: 10-16-2023 End: 10-16-2023 Patient encounter procedure [facility] Work Phone: Start: 10-16-2023 End: 10-16-[address] [facility] Start: 10-16-2023 End: 10-16-2023 Office outpatient visit 15 minutes Mouna Bautista MD Work Phone: [facility] Comment on above: Giant cell arteritis ([facility]) (Primary Dx) Start: 09-29-2023 Telephone encounter Rosa Suh [facility] Comment on above: Hospital Follow-up Start: 09-27-2023 End: 09-27-2023 Evaluation and management of inpatient RICKIE STEWART [facility] Start: 09-24-2023 End: 09-27-2023 Evaluation and management of inpatient TREVIN [facility] Start: 09-24-2023 End: 09-27-2023 [facility] Start: 09-24-2023 ambulatory [facility] Start: 09-23-2023 End: 09-26-2023 Evaluation and management of inpatient [facility] Start: 09-23-2023 End: 09-26-2023 Evaluation and management of inpatient Tono Pan MD Work Phone: [facility] - GEN 8 Acute Comment on above: B12 deficiency (Prim lisa Dx); Thrombocytosis; Vision blurred; Temporal arteritis ([facility]) Start: 03-24-2023 End: 03-25-2023 ambulatory Naomy Lujan MD Facility: [facility] Start: 03-10-2023 End: 03-11-2023 ambulatory Naomy Lujan MD Facility: [facility] Start: 03-03-2023 End: 03-04-2023 ambulatory Naomy Lujan MD Facility: [facility] Start: 02-17-2023 End: 02-18-2023 ambulatory [facility] Start: 02-03-2023 End: 02-04-2023 ambulatory Naomy Lujan MD Facility:[facility] Start: 01-24-2023 End: 01-25-2023 ambulatory Naomy Lujan MD Facility:[facility] Start: 12-25-2022 End: 12-25-[address] PATO LYNN Facility: Start: 04-25-2022 End: 04-25-[address] CRISTOPHER BUCHANAN . 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 variant Bart Milian MD Work Phone: Start: [...] Author Start: 10-11-2025 Tobacco Screening Tobacco Screening [facility] Start: 05-09-2025 End: 05-09-2025 Patient encounter procedure 05/09/2025 10:45 AM EDT Office Visit Adelaida [facility] - Medical Oncology [address] [place] [phone] Myra Cota, [employer] [address] [place] [address], [place] [address] Adelaida Keane [facility] - [facility] Start: 04-25-2025 Influenza vaccination Influenza Vaccine [facility] Start: 03-08-2025 Adult BMI Screening Adult BMI Screening [facility] Start: 02-04-2025 Adult BMI Screening Adult BMI Screening [facility] Start: 02-04-2025 Tobacco Screening Tobacco Screening [facility] Start: 01-01-2025 Adult BMI Screening Adult BMI Screening [facility] Start: 01-01-2025 Tobacco Screening [facility]ening [facility] Start: 12-10-2024 End: 12-10-2024 Patient encounter procedure 12/10/2024 2:30 PM EDT Office Visit Adelaida Keane [facility] - Medical Oncology [address] [place] [address] Adam Anna MD [address] [place] [id number] Adelaida Keane [facility] Start: 11-05-2024 Adult BMI Screening Adult BMI Screening [facility] Start: 10-16-2024 Adult BMI Screening Adult BMI Screening [facility] Start: 10-16-2024 Tobacco Screening Tobacco Screening [facility] Start: 09-24-2024 Adult BMI Screening Adult BMI Screening [facility] Start: 09-24-2024 Tobacco Screening [facility] Start: 09-23-2024 Depression Screening Depression Screening [facility] Start: 09-09-2024 End: 09-09-2024 Patient encounter procedure 09/09/2024 1:15 PM EST Office Visit Adelaida Keane [facility] [address] [place] [phone] Adam Anna MD [address] [place] [id number] Adelaida Keane [facility] Start: 04-25-2024 Influenza vaccination Influenza Vaccine [facility] Start: 03-05-2024 End: 03-05-2024 Patient encounter procedure 03/05/2024 2:15 PM EDT Office Visit Adelaida Keane [facility] - Medical Oncology [address] [place] [phone] Adam Anna MD [address] [place] [address] Adelaida Keane [facility] - [facility]cology Start: 02-05-2024 End: 02-05-2024 Patient encounter procedure 02/05/2024 11:30 AM EDT Office Visit [facility] [address] [place] [address] Mouna Bautista MD [address], [address] [address] [facility] Start: 01-15-2024 End: 01-15-2024 Patient encounter procedure 01/15/2024 11:00 AM EDT Office Visit [facility] [address] [place] [address] Mouna Bautista MD [address], [address] [address] [facility] Start: 01-02-2024 End: 01-02-2024 Patient encounter procedure 01/02/2024 1:15 PM EDT Office Visit [facility] [address] [place] [phone] Darci Santana MD [address] [place] [address] [facility] Start: 12-05-2023 End: 12-05-2023 Patient encounter procedure 12/05/2023 10:15 AM EDT Office Visit [facility] [address] [place] [phone] Darci Santana MD [address] [place] [address] [facility] Start: 11-06-2023 End: 11-06-2023 Patient encounter procedure 11/06/2023 3:30 PM EDT Office Visit Adelaida Keane [facility] - Medical Oncology [address] [place] [address] Adam Anna MD [address] [place] [address] Adelaida Faby [facility] - [facility] Oncology Start: 10-16-2023 End: 10-16-2023 Patient encounter procedure 10/16/2023 9:10 AM EST Office Visit [facility] [address] [place] [address] Mouna Bautista MD [address], [address] [address] [facility] Start: 04-25-2023 Influenza vaccination Influenza Vaccine [facility] Start: 2011 Fall Risk Screening Fall [facility] Start: 1996 Administration of varicella zoster vaccine Zoster (Shingles) Vaccine (1 of 2) [facility] Start: 1965 DTaP,Tdap and Td Vaccines (1 - Tdap) DTaP,Tdap and Td Vaccines (1 - Tdap) [facility] Start: 1946 Medicare Annual Wellness Visit Medicare Annual Wellness Visit [facility] End: 09-26-2024 Basic metabolic 2000 panel - Serum or Plasma Basic Metabolic Panel Lab Routine Vision blurred 1 Occurrences starting 09/26/2023 until 09/26/2024 [facility]: 1 Occurrences starting 09/26/2023 until 09/26/2024 End: 09-26-2024 CBC W Auto Differential panel - Blood CBC auto differential Lab Routine Thrombocytosis 1 Occurrences starting 09/26/2023 until 09/26/2024 [facility] Comment on above: 1 Occurrences starting 09/26/2023 until 09/26/2024 End: 11-05-2024 CBC W Auto Differential panel - Blood CBC auto differential Lab Routine Giant cell arteritis (CMS-HCC) Stroke-like symptoms Vision blurred Anemia, unspecified type every 2 months for 2 Occurrences starting 11/06/2023 until 11/05/2024 [facility] Work Phone: Comment on above: every 2 months for 2 Occurrences startin g 11/06/2023 until 11/05/2024 End: 01-24-2026 CBC W Auto Differential panel - Blood CBC with auto diff Lab Routine Normocytic anemia Thrombocytosis Anemia, unspecified type Iron deficiency prn for 12 Occurrences starting 01/24/2025 until 01/24/2026 [employer] Work Phone: Comment on above: prn for 12 Occurrences starting 01/25/20 until 01/24/2026 End: 01-24-2026 Cyanocobalamin vitamin b-12 Vitamin B12 Lab Routine Normocytic anemia Thrombocytosis Anemia, unspecified type Iron deficiency prn for 12 Occurrences starting 01/24/2025 until 01/24/2026 [employer] Comment on above: prn for 12 Occurrences starting 01/25/20 until 01/24/2026 End: 11-05-2024 Ferritin [Mass/volume] in Serum or Plasma Ferritin Lab Routine Giant cell arteritis (CMS-HCC) Stroke-like symptoms Vision blurred Anemia, unspecified type every 2 months for 2 Occurrences starting 11/06/2023 until 11/05/2024 [employer] Comment on above: every 2 months for 2 Occurrences startin g 11/06/2023 until 11/05/2024 End: 01-24-2026 Ferritin [Mass/volume] in Serum or Plasma Ferritin Lab Routine Normocytic anemia Thrombocytosis Anemia, unspecified type Iron deficiency prn for 12 Occurrences starting 01/24/2025 until 01/24/2026 [employer] Comment on above: prn for 12 Occurrences starting 01/25/20 until 01/24/2026 End: 09-23-2023 Flow cytometry blood only [employer] Work Phone: Comment on above: Once for 1 Occurrences starting 09/23/19 24 until 09/23/2023 Immunoelectrophoresi s for Therapy Monitoring Immunoelectrophoresis for Therapy Monitoring Lab Routine 09/23/2023 12:56 PM EST [employer] [facility] Work Phone: End: 11-05-2024 Iron and TIBC Iron and TIBC Lab Routine Giant cell arteritis (CMS-HCC) Stroke-like symptoms Vision blurred Anemia, unspecified type every 2 months for 2 Occurrences starting 11/06/2023 until 11/05/2024 [employer] Comment on above: every 2 months for 2 Occurrences startin g 11/06/2023 until 11/05/2024 End: 01-24-2026 Iron and TIBC Iron and TIBC Lab Routine Normocytic anemia Thrombocytosis Anemia, unspecified type Iron deficiency prn for 12 Occurrences starting 01/24/2025 until 01/24/2026 [employer] Comment on above: prn for 12 Occurrences starting 01/25/20 25 until 01/24/2026 Methylmalonate [Moles/volume] in Serum or Plasma Methylmalonic acid screen Lab Routine 09/23/2023 12:57 PM EST [employer] End: 09-23-2023 Methylmalonic acid screen Methylmalonic acid screen Lab Routine Once for 1 Occurrences starting 09/23/2023 until 09/23/2023 [employer] Work Phone: Comment on above: Once for 1 Occurrences starting 09/23/19 24 until 09/23/2023 Protein electrophore sis, serum Protein electrophoresis, serum Lab Routine 09/23/2023 12:56 PM EST [employer] Payers Date Payer Category Payer Medicare HMO [id number] 2023 Medicare [id number] 2022 Medicare 2016 Private Health Insurance [id number] 1959 Medicare [id number] 1945 Unknown [id number] 2.16.84 0.1.551969.3.579.2.593 1946 Unknown [id number] 2.16.84 0.1.458231.3.579.2.593 1946 Unknown [id number] 2.16. 840.1.904880.3.579.2.196 1946 Unknown [id number] 2.16. 840.1.026315.3.579.2.196 1946 Unknown [id number] 2.16. 840.1.924958.3.579.2.196 1946 Unknown [id number] 2.16. 840.1.441560.3.579.2.196 1946 Unknown [id number] 2.16. 840.1.109478.3.579.2.196 1946 Unknown [id number] 2.16. 840.1.238621.3.579.2.196 1946 Unknown [id number] 2.16.8 40.1.182719.3.579.2.6 1946 Unknown [id number] 2.16.8 40.1.092185.3.579.2.1286 1946 Unknown [id number] 2.16.8 40.1.207969.3.579.2.1285 1946 Unknown [id number] 2.16.8 40.1.344969.3.579.2.1286 1946 Unknown [id number] 2.16.8 40.1.494506.3.579.2.6 1946 Unknown [id number] 2.16.8 40.1.899175.3.579.2.6 1946 Unknown [id number] 2.16.8 40.1.053877.3.579.2.6 1946 Unknown [id number] 2.16.8 40.1.312213.3.579.2.1286 1946 Unknown [id number] 2.16.8 40.1.909312.3.579.2.6 1946 Unknown [id number] 2.16.8 40.1.987554.3.579.2.1286 1946 Unknown [id number] 2.16.8 40.1.382067.3.579.2.128 1946 Unknown [id number] 2.16.8 40.1.920611.3.579.2.1286 1946 Unknown [id number] 2.16.8 40.1.727084.3.579.2.1286 1946 Unknown [id number] 2.16.8 40.1.950215.3.579.2.1286 1946 Unknown [id number] 2.16. 840.1.864989.3.579.2.1286 1946 Unknown [id number] 2.16. 840.1.251000.3.579.2.1286 1946 Unknown [id number] 2.16.8 [id number] Self-pay Self Pay [id number] Social History Date Type Detail Facility Start: 10-16-2023 End: 04-13-2024 Tobacco smoking status NHIS Ex-smoker (finding) [facility] Start: 1945 Sex Assigned At Female [facility] Start: 03-30-2015 End: 07-12-2024 Sex Female (finding) [facility] Start: 09-23-2023 Tobacco smoking stat us [facility] Never smoked tobacco [facility] Start: 09-23-2023 Tobacco use and exposure Smoke less tobacco non-user [facility] Start: 01-02-2024 End: 10-11-2024 Alcoholic beverage intake Lifetime non-drinker (finding) [facility] Start: 10-05-2020 End: 09-23-2023 History of Social function [facility] Start: 10-05-2020 End: 09-23-2023 Alcohol Use Disorder Identification Test - Consumption [AUDIT-C] [facility] How often to you hav e a drink containing alcohol? Never [facility] How many standard dr inks containing alcohol do you have on a typical day? Patient does not drink [facility] Start: 1945 [facility] Date Patient Goal Desired Activity /State Personal health goal Comment on above: Formatting of this n ote might be different from the original. Evaluation of progress towards goal: Home with dtr, self care Clinical Notes 09-23-2023 to 01-24-2025 Myra Cota, GATE WATCH-SUPERVISOR FELTING - 01/24/2025 10:30 AM EDTPatient Instructions Note Date & Type Note Facility 01-24-2025 History of Presen t illness Narrative Images from the original note were not included. [facility] [id number] 01/24/2025 Chief Complaint Patient presents with Follow-up Subjective/Interval events: Jose David is a 79 y.o. year old female who is an established patient seen today in the Hematology/Medical Oncology clinic. Presents accompanied by her daughter for follow up visit for AMY and vitamin B12 deficiency. 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 Over the weekend patients vision in left eye continued to worsen and eventually lost all vision in left eye. Patient was seen by cardiac nurse specialist 09/22/2023 and time she would decreased vision also in her right eye. It was recommended that she go straight to the emergency department, for concern for giant cell arteritis. Initially she went to [facility] where they gave her Solu-Medrol 250 mg IV 1 dose and then transferred her to [facility]. When she arrived at [facility] she had complete vision loss in [...] day, repeat CBC and iron study at [facility] in 2 months. Follow-up in 4 months. If patient can not tolerate oral iron supplement, consider IV iron treatment. Review of Symptoms as below unless otherwise stated in HPI ECO- Asymptomatic Physical exam: Vitals: BP 139/69 Pulse 90 Temp 36.7 C (98 F) (Oral) Resp 16 Ht 157.5 cm (5' 2.01 ) Wt 62.7 kg (138 lb 3.2 oz) SpO2 98% BMI 25.27 kg/m Body mass index is 25.27 kg/m . Wt Readings from Last 3 Encounters: 01/24/25 [...] patient/family/caregiver Referring and communicating with other health child care associate (not separately reported) Documenting clinical information in the electronic or other health record Independently interpreting results (not separately reported) and communicating results to the patient/family/caregiver Care coordination (not separately reported) ----- Please note that portions of this note may have been generated using voice recognition M*SiTime dictation software. Although every effort was made to ensure the accuracy of any automated transcriptions, some errors may have occurred. ALANNA Garcia 03/08/24 1507 ALANNA Garcia 10/11/24 1457 ALANNA Garcia 01/24/25 1021 documented in this encounter [facility] Anonymous You 01-24-2025 Instructions ALANNA Garcia - 01/24/2025 10:30 AM EDT [...] ferritin vitamin B12 documented in this encounter [facility] 10-13-2024 Evaluation note Diagnosis Onset Date Resolution Left otitis media acute y 2024 2:27pm Muscle spasm acute September 2:27pm Neck pain acute October 13, 2024 2:27pm GERD (gastroesophageal reflux disease) acute December 16, 2024 1:50pm [facility] Work Phone: 1(104) 284-134702-17-2025 History of Present illness Narrative* ALANNA Garcia - 10/11/2024 9:30 AM EST Images from the original note were not included. [facility] [address] [place] [id number] 10/11/2024 Chief Complaint Patient presents with Follow-up Subjective/Interval events: Jose David is a 79 y.o. year old female who is an established patient seen today in the Hematology/Medical Oncology clinic. Presents accompanied by her daughter for follow up visit for AMY and vitamin B12 deficiency. She iscurrently taking ferrous sulfate 325 mg twice daily and vitamin B12 1000 mcg daily. Patient reports that she gets an upset stomach with her vitamin B12 pill. She states she does not get an upset stomach when she takes her ferrous sulfate b.i.d.. She worked with her import export coordinator tochange these medications. He placed her on a multivitamin daily. And she does have a lower dose [id number]. 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 Over the weekend patients vision in left eye continued to worsen and eventually lost all vision in left eye. Patient was seen by cardiac nurse specialist 09/22/2023 and time she would decreased vision also in her right eye. It was recommended that she go straight to the emergency department, for concern for giant cell arteritis. Initially she went to [facility] where they gave her Solu-Medrol 250 mg IV 1 dose and then transferred her to [facility]. When she arrived at [facility] she had complete vision loss in [...] day, repeat CBC and iron study at [facility] in 2 months. Follow-up in 4 [...] to participate in this patient's care. MYRA COTA APRN-RIVKA 10/11/2024 9:57 AM Total time spent was 35 minutes: Preparing to see the patient (e.g., review of tests) Obtaining and/or reviewing separately obtained history Performing a medically appropriate examination and/or evaluation Counseling and educating the patient/family/caregiver Referring and communicating with other health child care associate (not separately reported) Documenting clinical information in the electronic or other health record Independently interpreting results (not separately reported) and communicating results to the patient/family/caregiver Care coordination (not separately reported) Please note that portions of this note may have been generated using voice recognition [employer] dictation software. Although every effort was made to ensure the accuracy of any automated transcriptions, some errors may have occurred. ALANNA Garcia 03/08/24 1507 ALANNA Garcia 10/11/24 1457 documented in this encounterPro[facility]-17-[facility] Instructions* Patient Instructions* ALANNA Garcia - 10/11/2024 9:30 AM EST [...] ferritin vitamin B12 folate documented in this encounterProtestant [facility]02-12-2025 NoteSubjective Patient ID: Jose David is a 79 y.o. female who presents for No chief complaint on file.. HPI She was admitted to [facility] end of August 2023 due to [...] testing every 3 months to monitor for toxicity.[facility] 05-05-2024 NoteSubjective Patient ID: Jose David is a 78 y.o. female who presents for Follow-up (1 headache a few weeks ago. Increased itching for a few months ). HPI She was admitted to [facility] end of August 2023 due to [...] testing every 3 months to monitor for toxicity.[facility] 04-13-2024 Evaluation note* Diagnosis Onset Date Resolution Status Admit Date At high risk for falls acute Au daniel 2023 10:44am Dry skin dermatitis acute Augus t 2023 10:44am GERD (gastroesophageal reflu x disease) acute April 13 10:44am History of cataract extracti on with lens replacement acute March 10:44am Medicare annual wellness vis it, subsequent acute April 13 10:44am Temporal arteritis acute April 13, 2024 10:44am Vision loss, bilateral acute Au 2023 10:44am [facility] Work Phone: 1(371) 210-658707-15-2024 History of Present illness Narrative* Roxie Saldivar RN - 03/08/2024 2:46 PM EDT The patient is here for AMY follow up, labs and plan of care were reviewed with Myra MEDICAL RADIATION TECH. The following recommendations were made: Continue ferrous sulfate 325 mg twice daily Continue vitamin B12 1000 mcg daily Labs in 3 months CBC-d, iron panel, ferritin, vitamin B12 Follow up in 6 months with same labs prior Patient & daughter verbalized understanding, AVS given documented in this encounterProtest[facility]06-13-[facility]24 History of Present illness Narrative* Mouna [...] Performed by Kristel Reid MD at [facility] TONSILLECTOMY TUBAL LIGATION Social and Family [...] Interpersonal Safety: Unknown (10/17/2023) Received from [facility] [place] Safety & Environment Fear [...] you for your understanding. documented in this encounterProtestant [facility]acon[facility]06-05-2024 NoteSubjective Patient ID: Jose David is a 78 y.o. female who presents for Follow-up (GCA. Neck pain with cramping ). HPI She was admitted to [facility] end of August 2023 due to [...] testing every 3 months to monitor for toxicity.[facility] 01-02-2024 History of Present illness Narrative* Mahnaz Ochoa MD - 01/02/2024 1:30 PM EDT Images from the original note were not included. [address] [facility] [address] Patient: Jose David Date of : 1945 Encounter Date: 01/02/2024 Patient Care Team: MERCEDES Portillo as PCP - General (Nurse Practitioner) Adam Anna MD as Consulting Physician (Hematology) History of Present Illness: The patient is a 78 y.o. female, a patient seen at [facility] by our service, and is here [...] the patient was given a referral to [facility]? The patient states that [...] the ED immediately. Patient initially went to [facility] and was given IV 250 mg Solu-Medrol once. She was then transferred to [facility] for further evaluation. Initial consideration with [...] head and CTA were reportedly done at [facility] and reported to be unremarkable. MRI [...] 09/25/2023 Performed by Kristel Reid MD at [facility] TONSILLECTOMY TUBAL LIGATION Current Outpatient Medications [...] extend her arms outwards appropriately in botharms, [id number] testing within normal. There is no dysmetria. [...] reviewed the resident's note. documented in this encounterProtestant [facility]acon[facility]03-14-2024 History of Present illness Narrative* Malinda Arrington RN - 11/06/2023 3:46 PM EDT Patient is here for consult with Dr. Anna. Orders received for CBC, iron studies every 2 months (print out orders). F/u in 4 months. Calendar given to family member and labs orders to be drawn at [place]. documented in this encounterProtestant Deacon[facility]03-14-2024 History of Present illness Narrative* Adam Anna MD - 11/06/2023 3:30 PM EDT Images from the original note were not included. [facility] 11/06/23 Jose David is a 78 y.o. year old female seen today in the oncology clinic. Chief Complaint Patient presents with Follow-up History of Present Illness: Mrs. David is a 78 y.o. female with no significant past medical history presented to engine repairer on 09/19/2023 due to blurry vision in left eye, she was told her optic disc was swollen and the patient was given a referral to cardiac nurse specialist. Over the weekend patients vision in left eye continued to worsen and eventually lost all vision in left eye. Patient was seen by cardiac nurse specialist 09/22/2023 and time she would decreased vision also in her right eye. It was recommended that she go straight to the emergency department, for concern for giant cell arteritis. Initially she went to [facility] where they gave her Solu-Medrol 250 mg IV 1 dose and then transferred her to [facility]. When she arrived at [facility] she had complete vision loss in [...] 09/25/2023 Performed by Kristel Reid MD at [facility] TONSILLECTOMY TUBAL LIGATION No family history [...] 1 Dose: 325 mg Signed by: Dr. Adam Anna MD 325 mg, oral, 2 times daily with meals Started by: Adam Anna MD Medications Continued This Visit acetaminophen 500 [...] day, repeat CBC and iron study at [facility] in 2 months. Follow-up in 4 months. If patient can not tolerate oral iron supplement, consider IV iron treatment. Thank you. Adam Anna MD Please note that portions of this note were generated using voice recognition M*Modal dictation software. Although every effort was made to ensure the accuracy of this automated executive talent acquisition consultant, some errors in executive talent acquisition consultant may have occurred. CC: Patient Care Team: Giovanna Graf APRN-SAMRA as PCP - General (Nurse Practitioner) Adam Anna MD as Consulting Physician (Hematology) PCP:Giovanna Graf Referring MD: John Patel DO documented in this [facility]03-14-2024 Instructions* Patient Instructions* Adam Anna MD - 11/06/2023 3:30 PM EDT CBC, iron studies every 2 months (print out orders). F/u in 4 months. documented in this encounterProtestant Deaconess Hospital02-23-2024 Miscellaneous Notes* Telephone Encounter - Beronica [...] or 90 day supply preferred:30 Pharmacy Name: [facility]/pharmacy #[id number] - [place], [place] - If already on preferred pharmacy [...] will have to fill. documented in this encounterProtestant Deaconess Hospital02-23-2024 Telephone encounter Note* Telephone Encounter - [...] 90 day supply preferred: 30 Pharmacy Name: [facility]/pharmacy #[id number] - [place], [place] - If already on preferred pharmacy list - name only If new pharmacy - specify address & phone number [facility]02-23-2024 Telephone encounter Note* Telephone Encounter - Shadia Hua - 10/17/2023 11:39 AM EST I have attempted to contact this patient by phone with the following results: left detailed messageregarding that since patient has not been seen in clinic PCP or the provider that prescribed medication will have to fill. [facility]02-22-2024 History of Present illness Narrative* Mouna Bautista MD - 10/16/2023 9:10 AM EST Images from the original note were not included. [facility] [address] [place] [id number] Subjective: Patient ID: Jose David is a [...] Vision blurred Stroke-like symptoms Giant cell arteritis ([facility]) Current Outpatient Medications: acetaminophen (TYLENOL [...] orders for this visit: Giant cell arteritis ([facility]) Plan Plan: Referral to rheumatology for management of temporal arteritis. Continue steroids in the meanwhile Mouna Bautista MD documented in this encounterProtestant Deaconess [facility]02-05-2024 Miscellaneous Notes* Telephone Encounter - Rosa [...] OPINION? - Patient saw Dr. Byrne at [facility] Visit 09/23-08/26/2023 5. PATIENT IS SCHEDULED ON/WITH: - 12/05/2023 at 10:[address] Santana documented in this encounterProtestant Deaconess Hospital02-05-2024 Telephone encounter Note* Telephone Encounter - [...] OPINION? - Patient saw Dr. Byrne at [facility] Visit 09/23-08/26/2023 5. PATIENT IS SCHEDULED ON/WITH: - 12/05/2023 at 10:[address] Santana [facility] Anonymous [id number] Nurse Note* Caryn Briceno RN - 09/26/2023 5:38 PM EST Patient alert and oriented. IV and telemetry discontinued. All discharge instructions have been reviewed and are understood by the patient and daughter. Patient left the unit via wheelchair with all of their belongings and in no distress. [facility]* Caryn Briceno RN - 09/26/2023 5:38 PM EST Patient alert and oriented. IV and telemetry discontinued. All discharge instructions have been reviewed and are understood by the patient and daughter. Patient left the unit via wheelchair with all of their belongings and in no distress. Patient discharged home. documented in this encounterProtestant Deaconess Hospital02-02-2024 Hospital course Narrative* Bart Milian MD [...] time of the discharge: peripheral smear, flowcytometry, SPEP Hospital Course Jose Davidis a 78 y.o.female with no significant past medical history, she presented to the hospital with bilateral vision loss. Patient started to notice blurry vision in her left eye 09/19, she was evaluated by Ophthalmology outpatient who referred her to eye center in [place]. Over the weekend her left eye vision significantly deteriorated to a point where she could no longer see. On 09/22, she started developing vision loss in her right eye. She visited the eye center who sent her to ER right away. Patient initially presented to the [facility] ER, she was given Solu-Medrol 250 mg IV once and transferred to [facility] for further workup. Patient was evaluated [...] Your Medications These medications were sent to [facility]/pharmacy #[id number] [place] [id number] aspirin 81 mg cyanocobalamin 1000 MCG tablet [...] Regular Texture Adult diet John Patel, [address] [facility] [address] Schedule an appointment as soon as possible for a visit in 1 week(s) Jt Jasso MD [address] Rheumatology [facility] [address] Schedule an appointment as soon as possible for a visit in 2 week(s) Joni Pizano MD [address] [facility] [address] [facility] [address] Schedule an appointment as soon as possible for a visit in 2 week(s) Sandy Pizano MD [address] [facility], [address] [facility] [address] Schedule an appointment as soon as possible for a visit in 1 month(s) [place] Bartlett MD [address] [facility] [address] Schedule an appointment as soon as possible [...] questions. Electronically signed by: BART MILIAN MD [facility] Physician Hospitalists, Department of Internal Medicine 09/26/23 1:16 PM documented in this encounterProtestant Deaconess Hospital02-02-2024 Hospital Discharge instructions* Discharge Instructions* Bart Milian MD - 09/26/2023 1:15 PM EST You are started on Aspirin to reduce group home risk of vascular complications with you suspected condition (giant cell arteritis) also it will help with preventing thrombosis (clotting) given your Thrombocytosis (elevated platelet count). Please discuss any concerns with your primary care provider, import export coordinator or design engineering intern Discuss with primary care or import export coordinator DEXA scan as you are expected to be on steroid medications for prolonged period of time (up to 6 months). Log term steroids can cause Osteoporosis. * Attachments The following attachments cannot be sent through Care Everywhere. * Polymyalgia rheumatica and giant cell arteritis ([place]) documented in this encounterProtestant Deaconess Hospital02-02-2024 History of Present illness Narrative* Kellie Shah MD - 09/26/2023 12:30 PM EST Images from the original note were not included. [facility] Rheumatology PROGRESS NOTE DATE OF ADMISSION 09/23/2023 12:25 AM REASON FOR CONSULTATION: Acute B/L sudden painless vision loss concerning for B/l GCA REFERRING PHYSICIAN: Goran Thomas MD PCP JOHN PATEL, ASSESSMENT AND PLAN: B/L vision loss likely 2/2 GCA -Pt's initial symptoms were blur vision in L eye but unfortunately when she presented to [facility] she had complete vision loss [...] SSA, SSB, scleroderma antibody, Tiki 1, Mejia, ARMED SECURITY PROFESSIONAL, anti dsDNA, anti chromatin were negative. -No [...] no significant past medical history presented to [facility] 09/24 for concerns of vision loss in left eye. Patient was evaluated by engine repairer on 09/19/2023 due to blurry vision left [...] concerns of giant cell arteritis. Initially at [facility] she was given Solu-Medrol 250 mg IV 1 dose and then transferred to [facility]. On presenting to [facility], she had complete vision loss in both eyes. She was started on IV Solu-Medrol 1000 mg for 3 days. She underwent bilateral temporal artery biopsy on 09/25/2023. During this admission she had workup done which showed positive SILVIA screen, mildly elevated rheumatoid factor at 21 and elevated anticentromere antibody. Anca ribosomal antibody, SSA, SSB, scleroderma antibody, Tiki 1, Mejia, ARMED SECURITY PROFESSIONAL, anti dsDNA, anti chromatin were negative. PAST MEDICAL HISTORY: History reviewed. No pertinent past medical history. PAST SURGICAL HISTORY: Past Surgical History: Procedure Laterality Date APPENDECTOMY BIOPSY ARTERY TEMPORAL Bilateral 09/25/2023 Performed by Kristel Reid MD at [facility] TONSILLECTOMY TUBAL LIGATION ALLERGIES: Allergies Allergen [...] of the major arterial structures in the cheesh-na of [place]. The paranasal sinuses are clear. [...] of the major arterial structures in the cheesh-na of [place]. The paranasal sinuses are clear. [...] original note were not included. [facility] [place] [facility] Progress Note Subjective: Status post [...] call with any questions or concerns. Juaquin Bailye M.D. Resident, General Surgery PGY2 09/26/23 Associated [...] from the original note were not included. [facility] Physicians Hospitalists Progress Note 09/25/2023 Patient [...] 09/25/2023 Performed by Kristel Reid MD at [facility] TONSILLECTOMY TUBAL LIGATION OBJECTIVE Vital Signs: [...] presents to the emergency department from her cardiac nurse specialist's office. She was being evaluated with an cardiac nurse specialist for possible giant cell arthritis. She [...] from the original note were not included. [facility] Neurology General Neurology Consultation Note Consult Neurology Service: [phone] Primary Team: [facility] Chief Complaint and Reason for [...] was given referral to eye center in [facility], on Friday and Friday, vision on the left eye worsened significantly and she lost her vision on the left eye. On Friday 09/22, patient came to [place] to see an eye doctor, whoasked her to go to the ED. patient initially went to [facility], given Solu-Medrol 250 mg IVonce, transferred to [facility] for further workup and ophthalmology evaluation. According to the patient, her right eye vision worsened significantly on Friday, and she lost her vision on both eyes. Patient had no past medical history, she has not taking any scheduled medications, patient lives with her daughter, she is driving and working. Walking with no assistive devices. Upon initial assessment in [facility], patient had complete vision loss on [...] CTH, head [facility] neck [facility] [facility], reportedly unremarkable Impression: Binocular vision loss [...] to Friday 12-1:00 p.m. Primary Neurology service: [phone] Consult neurology service: [phone] Resident Stroke Service: [phone] If the patient belongs to the Stroke TRAM service please contact the Stroke TRAM directly. Associated attestation - Sadny Pizano MD - 09/24/2023 5:14 PM EST [...] from the original note were not included. [facility] Hospitalists Progress Note 09/24/2023 Patient [...] IgG 992 635 - 1,741 mg/dL Free [place] Lt Chains 2.91 (H) 0.33 - 1.94 [...] of the major arterial structures in the che[place]na of [place]. The paranasal sinuses are clear. [...] of the major arterial structures in the che[place] of [place]. The paranasal sinuses are clear. [...] from the original note were not included. [facility] Neurology General Neurology Consultation Note Consult Neurology Service: [phone] Primary Team: [facility] Chief Complaint and Reason for [...] was given referral to eye center in [place]?, on Friday and Friday, vision on the left eye worsened significantly and she lost her vision on the left eye. On Friday 09/22, patient came to [place] to see an eye doctor, whoasked her to go to the ED. patient initially went to [facility], given Solu-Medrol 250 mg IVonce, transferred to [facility] for further workup and ophthalmology evaluation. According to the patient, her right eye vision worsened significantly on Friday, and she lost her vision on both eyes. Patient had no past medical history, she has not taking any scheduled medications, patient lives with her daughter, she is driving and working. Walking with no assistive devices. Upon initial assessment in [facility], patient had complete vision loss on [...] CTH, head and neck CTA done at [facility], reportedly unremarkable Impression: Binocular vision loss [...] to Friday 12-1:00 p.m. Primary Neurology service: [phone] Consult neurology service: [phone] Resident Stroke Service: [phone] If the patient belongs to the Stroke [...] from the original note were not included. [facility] Hospitalists Progress Note 09/23/2023 Patient [...] can correct any mistakes. documented [facility]* Discharge Planning Note - [...] - Sophia Rajan RN 09/26/23 11:05 AM [facility]02-02-2024 Miscellaneous Notes* Discharge Planning Note - Sophia [...] at the bedside 7. Instruct patient/ patient investment representative about use of safety devices 8. Include patient/ patient investment representative in decisions related to safety Note: Evaluation of progress towards goal: No reports of injury during shift. Safety measures in place * Plan of Care - Jc Pelayo RN - 09/25/2023 11:52 PM EST Problem: Low Risk Fall Score Description: Clifford Fall Score of 0 - 24 or indicated by [facility] Assessment Goal: Patient should be free from fall Description: Interventions: 1. [place] to environment 2. Hourly rounds addressing the [...] non-skid footwear 11. Teach patient and patient investment representative to maintain environment for safety and [...] Description: INTERVENTIONS: 1. Encourage patient or legal investment representative to report early pain and ask [...] per policy 9. Teach patient or legal investment representative interventions for comforting Outcome: Progressing Note: [...] at the bedside 7. Instruct patient/ patient investment representative about use of safety devices 8. Include patient/ patient investment representative in decisions related to safety Outcome: [...] hygiene technique 7. Identify and instruct patient/patient investment representative in use of appropriate isolation precautionsfor identified infection/symptoms 8. Provide and discuss with patient/patient investment representative on educational MDRO sheet 9. Encourage and monitor nutritional status daily and consult field cane scaler if indicated 10. Implement neutropenic guidelines as needed 11. Review exposure to history of communicable disease and recent travel history on admission 12. Encourage annual influenza vaccine 13. Encourage pneumonia vaccine Outcome: Progressing Note: Evaluation of progress towards goal: Patient free from signs of infection. Afebrile. Continueto Monitor. Problem: Knowledge Deficit Goal: Patient/patient investment representative demonstrates understanding of disease process, treatment [...] - 24 or indicated by [facility] Assessment Goal: Patient should be free from fall Description: Interventions: 1. [place] to environment 2. Hourly rounds addressing the [...] non-skid footwear 11. Teach patient and patient investment representative to maintain environment for safety and engage in all aspects of fall prevention program Outcome: Progressing Note: Evaluation of progress towards goal: Patient free from falls and injury. Continue to monitor. Problem: Moderate - High Risk Fall Score Description: [place] Fall Score of =/> 25 or indicated by [facility] Assessment Goal: Patient should be free from fall Description: Interventions: 1. [place] to environment 2. Hourly rounds addressing the [...] non-skid footwear 11. Teach patient and patient investment representative to maintain environment for safety and [...] (cane, walker) within reach 19. Request patient investment representative bring adaptive equipment/mobility aids from home or obtain and provide as needed 20. Consult pharmacy regarding effects of med's affecting mobility, cognition, and alternatives 21. Obtain physician order for PT if risk factors associated with mobility are present 22. Obtain physician order for OT as appropriate 23. Utilize diversional activities 24. Educate patient and patient investment representative how to maintain a safe environment during visitationtimes (notify nurse prior to leaving bedside) 25. Consider appropriateness of medical or non-medical record administrator 26. Set up voiding schedule as appropriate [...] days ago. She was evaluated by her cardiac nurse specialist who felt that vision loss was [...] ARTERY BIOPSY Tissue Artery SURGICAL PATHOLOGY Kristel Ried MD 09/25/2023 0808 Implants: None Complications: None Disposition: PACU - hemodynamically stable. Condition: stable Kristel Reid MD [facility] * Plan of Care - Jc Pelayo RN - 09/24/2023 11:51 PM EST Problem: Low Risk Fall Score Description: Clifford Fall Score of 0 - 24 or indicated by [facility] Assessment Goal: Patient should be free from fall Description: Interventions: 1. [place] to environment 2. Hourly rounds addressing the [...] non-skid footwear 11. Teach patient and patient investment representative to maintain environment for safety and [...] Description: INTERVENTIONS: 1. Encourage patient or legal investment representative to report early pain and ask [...] per policy 9. Teach patient or legal investment representative interventions for comforting Outcome: Progressing Note: [...] at the bedside 7. Instruct patient/ patient investment representative about use of safety devices 8. Include patient/ patient investment representative in decisions related to safety Outcome: [...] hygiene technique 7. Identify and instruct patient/patient investment representative in use of appropriate isolation precautionsfor identified infection/symptoms 8. Provide and discuss with patient/patient investment representative on educational MDRO sheet 9. Encourage and monitor nutritional status daily and consult field cane scaler if indicated 10. Implement neutropenic guidelines as needed 11. Review exposure to history of communicable disease and recent travel history on admission 12. Encourage annual influenza vaccine 13. Encourage pneumonia vaccine Outcome: Progressing Note: Evaluation of progress towards goal: Patient afebrile, Monitoring labs. Problem: Knowledge Deficit Goal: Patient/patient investment representative demonstrates understanding of disease process, treatment [...] Description: INTERVENTIONS: 1. Encourage patient or legal investment representative to report early pain and ask [...] per policy 9. Teach patient or legal investment representative interventions for comforting Outcome: Progressing Note: [...] at the bedside 7. Instruct patient/ patient investment representative about use of safety devices 8. Include patient/ patient investment representative in decisions related to safety Outcome: [...] hygiene technique 7. Identify and instruct patient/patient investment representative in use of appropriate isolation precautionsfor identified infection/symptoms 8. Provide and discuss with patient/patient investment representative on educational MDRO sheet 9. Encourage and monitor nutritional status daily and consult field cane scaler if indicated 10. Implement neutropenic guidelines as [...] Description: INTERVENTIONS: 1. Encourage patient or legal investment representative to report early pain and ask [...] per policy 9. Teach patient or legal investment representative interventions for comforting Outcome: Progressing Note: [...] at the bedside 7. Instruct patient/ patient investment representative about use of safety devices 8. Include patient/ patient investment representative in decisions related to safety Outcome: [...] hygiene technique 7. Identify and instruct patient/patient investment representative in use of appropriate isolation precautionsfor identified infection/symptoms 8. Provide and discuss with patient/patient investment representative on educational MDRO sheet 9. Encourage and monitor nutritional status daily and consult field cane scaler if indicated 10. Implement neutropenic guidelines as needed 11. Review exposure to history of communicable disease and recent travel history on admission 12. Encourage annual influenza vaccine 13. Encourage pneumonia vaccine Outcome: Progressing Note: Evaluation of progress towards goal: Patient receiving antibiotics as ordered. Continue to monitor. Problem: Knowledge Deficit Goal: Patient/patient investment representative demonstrates understanding of disease process, treatment [...] - 24 or indicated by [facility] Assessment Goal: Patient should be free from fall Description: Interventions: 1. [place] to environment 2. Hourly rounds addressing the [...] non-skid footwear 11. Teach patient and patient investment representative to maintain environment for safety and [...] 09/23/23 2:07 PM * Situational Awareness - Des Davila APRN-RIVKA - 09/23/2023 12:58 PM EST Consulted for MAUREEN to rule out embolic process in setting of sudden vision loss. Discussed with neurology, recommend surface echo with bubble study prior to consideration of MUAREEN. If TTE unremarkable and continued concerns, please [...] at the bedside 7. Instruct patient/ patient investment representative about use of safety devices 8. Include patient/ patient investment representative in decisions related to safety Outcome: [...] hygiene technique 7. Identify and instruct patient/patient investment representative in use of appropriate isolation precautionsfor identified infection/symptoms 8. Provide and discuss with patient/patient investment representative on educational MDRO sheet 9. Encourage and monitor nutritional status daily and consult field cane scaler if indicated 10. Implement neutropenic guidelines as [...] - 24 or indicated by [facility] Assessment Goal: Patient should be free from fall Description: Interventions: 1. [place] to environment 2. Hourly rounds addressing the [...] non-skid footwear 11. Teach patient and patient investment representative to maintain environment for safety and engage in all aspects of fall prevention program Outcome: Progressing Note: Evaluation of progress towards goal: Patient remained free from falls. Will continue to utilized fall prevention measures. documented in this encounterProtest[facility]24 Plan of care note * Plan [...] at the bedside 7. Instruct patient/ patient investment representative about use of safety devices 8. Include patient/ patient investment representative in decisions related to safety Note: Evaluation of progress towards goal: No reports of injury during shift. Safety measures in place [facility] Plan of care note* Plan of Care - Jc Pelayo RN - 09/25/2023 11:52 PM EST Problem: Low Risk Fall Score Description: Clifford Fall Score of 0 - 24 or indicated by [facility] Assessment Goal: Patient should be free from fall Description: Interventions: 1. [place] to environment 2. Hourly rounds addressing the [...] non-skid footwear 11. Teach patient and patient investment representative to maintain environment for safety and engage in all aspects of fall prevention program Outcome: Progressing Note: Evaluation of progress towards goal: Patient remained free from falls. Will continue to utilized fall prevention measures. [facility]02-01-2024 Progress note* Discharge Planning Note - Sophia [...] - Sophia Rajan RN 09/25/23 1:09 PM [employer]02-01-2024 Plan of care note* Plan of Care - Sabas Snow RN - 09/25/2023 12:35 PM EST Problem: Pain Goal: Patient goal is pain score less than 4, able to rest, and participant in treatment plan as appropriate Description: INTERVENTIONS: 1. Encourage patient or legal investment representative to report early pain and ask [...] per policy 9. Teach patient or legal investment representative interventions for comforting Outcome: Progressing Note: [...] at the bedside 7. Instruct patient/ patient investment representative about use of safety devices 8. Include patient/ patient investment representative in decisions related to safety Outcome: [...] hygiene technique 7. Identify and instruct patient/patient investment representative in use of appropriate isolation precautionsfor identified infection/symptoms 8. Provide and discuss with patient/patient investment representative on educational MDRO sheet 9. Encourage and monitor nutritional status daily and consult field cane scaler if indicated 10. Implement neutropenic guidelines as needed 11. Review exposure to history of communicable disease and recent travel history on admission 12. Encourage annual influenza vaccine 13. Encourage pneumonia vaccine Outcome: Progressing Note: Evaluation of progress towards goal: Patient free from signs of infection. Afebrile. Continueto Monitor. Problem: Knowledge Deficit Goal: Patient/patient investment representative demonstrates understanding of disease process, treatment [...] - 24 or indicated by [facility] Assessment Goal: Patient should be free from fall Description: Interventions: 1. [place] to environment 2. Hourly rounds addressing the [...] non-skid footwear 11. Teach patient and patient investment representative to maintain environment for safety and engage in all aspects of fall prevention program Outcome: Progressing Note: Evaluation of progress towards goal: Patient free from falls and injury. Continue to monitor. Problem: Moderate - High Risk Fall Score Description: Clifford Fall Score of =/> 25 or indicated by [facility] Assessment Goal: Patient should be free from fall Description: Interventions: 1. [place] to environment 2. Hourly rounds addressing the [...] non-skid footwear 11. Teach patient and patient investment representative to maintain environment for safety and [...] (cane, walker) within reach 19. Request patient investment representative bring adaptive equipment/mobility aids from home or obtain and provide as needed 20. Consult pharmacy regarding effects of med's affecting mobility, cognition, and alternatives 21. Obtain physician order for PT if risk factors associated with mobility are present 22. Obtain physician order for OT as appropriate 23. Utilize diversional activities 24. Educate patient and patient investment representative how to maintain a safe environment during visitationtimes (notify nurse prior to leaving bedside) 25. Consider appropriateness of medical or non-medical record administrator 26. Set up voiding schedule as appropriate (every 2 hours) Outcome: Progressing Note: Evaluation of progress towards goal: Patient free from falls and injury. Continue to monitor. [facility] [id number] Consult note* Kellie Shah MD - 09/25/2023 8:47 AM ESTAssociated Order(s): IP CONSULT TO RHEUMATOLOGY Images from the original note were not included. 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 -No concern for RA or scleroderma given lack of clinical symptoms Discussed with attending Dr. Romero Shah PGY-5, Rheumatology CHIEF COMPLAINT: Visual loss HISTORY OF PRESENT ILLNESS: Jose David is a 78 y.o. White or female who presents with no significant past medical history presented to [facility] 09/24 for concerns of vision loss in left eye. Patient was evaluated by engine repairer on 09/19/2023 due to blurry vision left [...] concerns of giant cell arteritis. Initially at [facility] she was given Solu-Medrol 250 mg IV 1 dose and then transferred to [facility]. On presenting to [facility], she had complete vision loss in both eyes. She was started on IV Solu-Medrol 1000 mg for 3 days. She underwent bilateral temporal artery biopsy on 09/25/2023. During this admission she had workup done which showed positive SILVIA screen, mildly elevated rheumatoid factor at 21 and elevated anticentromere antibody. Anca ribosomal antibody, SSA, SSB, scleroderma antibody, Tiki 1, Mejia, [employer]MED SECURITY PROFESSIONAL, anti dsDNA, anti chromatin were negative. PAST [...] of the major arterial structures in the [place] of [place]. The paranasal sinuses are clear. [...] of the major arterial structures in the [place] of [place]. The paranasal sinuses are clear. [...] IgG 992 635 - 1,741 mg/dL Free [place] Lt Chains 2.91 (H) 0.33 - 1.94 [...] I agree with the assessment and plan. [facility]02-01-[facility] Consult note* Kellie Shah MD - 09/25/2023 8:47 AM ESTAssociated Order(s): IP CONSULT TO RHEUMATOLOGY Images from the original note were not included. 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 -No concern for RA or scleroderma given lack of clinical symptoms Discussed with attending Dr. Romero Shah PGY-5, Rheumatology CHIEF COMPLAINT: Visual loss HISTORY OF PRESENT ILLNESS: Jose David is a 78 y.o. White or female who presents with no significant past medical history presented to [facility] 09/24 for concerns of vision loss in left eye. Patient was evaluated by engine repairer on 09/19/2023 due to blurry vision left [...] concerns of giant cell arteritis. Initially at [facility] she was given Solu-Medrol 250 mg IV 1 dose and then transferred to [facility]. On presenting to [facility], she had complete vision loss in both eyes. She was started on IV Solu-Medrol 1000 mg for 3 days. She underwent bilateral temporal artery biopsy on 09/25/2023. During this admission she had workup done which showed positive SILVIA screen, mildly elevated rheumatoid factor at 21 and elevated anticentromere antibody. Anca ribosomal antibody, SSA, SSB, scleroderma antibody, Tiki 1, Mejia, AR[employer] SECURITY PROFESSIONAL, anti dsDNA, anti chromatin were negative. PAST [...] of the major arterial structures in the [place] of [place]. The paranasal sinuses are clear. [...] of the major arterial structures in the [place] of [place]. The paranasal sinuses are clear. [...] IgG 992 635 - 1,741 mg/dL Free [place] Lt Chains 2.91 (H) 0.33 - 1.94 [...] - 2.2 % Associated attestation - Romero, tJ Milian MD - 09/25/2023 7:47 PM EST I have seen, examined and performed braswell parts of this encounter with my resident and I agree with the assessment and plan. * ALANNA Guzman - 09/24/2023 10:37 AM EST Images from the original note were not included. Vascular History and Physical Examination/Consultation Note Reason for Consultation Bilateral temporal artery biopsy, concern for giant cell arteritis History and Present Illness Jose David is a 78 y.o. White or female who presents to the emergency department from her cardiac nurse specialist's office. She was being evaluated with an cardiac nurse specialist for possible giant cell arthritis. She [...] questions or concerns regarding management. ALANNA Guzman [facility] Vascular [place] Office/After hours: [phone] ALANNA Guzman 09/24/23 1527 * Bayron Denise - 09/23/2023 4:37 PM ESTAssociated Order(s): IP CONSULT TO SPIRITUAL CARE Summary: Spiritual Care Consult for Advance Directive Assistance Spiritual Care Consult for Advance Directive Assistance Advance Directive: Inspector And Clerk provided patient with education on the need for advance directives and a copy of the [place] Advance Directive packet. Inspector And Clerk assisted patient in completing the advance directives. Patient completed and signed a healthcare power of title attorney. Patient was given the original and a copy. One copy placed in patient's chart. A interventional radiologist is available 17/03 to offer spiritual and emotional support and may be reached through the [facility] decker operator at [phone]. * [place] Bartlett MD - 09/23/2023 12:15 PM ESTAssociated Order(s): IP CONSULT TO OPHTHALMOLOGY Date: Reason for consult: I have been asked to evaluate the eyes of this 78-year-old lady who noticed sudden onset of foggy in the left eye 4 days ago this rapidly progressed to complete loss of vision in the left eye.. She saw an engine repairer who indicated to her that she had [...] the patient was given a referral to cardiac nurse specialist. Over the weekend patients vision in left eye continued to worsen and eventually lost all vision in left eye. Patient was seen by cardiac nurse specialist 09/22/2023 and time she would decreased vision also in her right eye. It was recommended that she go straight to the emergency department, for concern for giant cell arteritis. Initially she went to [facility] where they gave her Solu-Medrol 250 mg IV 1 dose and then transferred her to [facility]. 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 Caitie Wilder PA-C [facility] [address] [place] [address] September 23, 2023, 10:20 AM Please note that portions of this note were generated using voice recognition M*SiTime dictation software. Although every effort was made to ensure the accuracy of this automated executive talent acquisition consultant, some errors in executive talent acquisition consultant may have occurred. I have personally performed [...] need to start aspirin Joni PIZANO M.D. [facility] Day time contact: After hours answering service: [phone] [place] [address] * Carlitos Caraballo MD - 09/23/2023 12:53 AM ESTAssociated Order(s): IP CONSULT TO NEUROLOGY Images from the original note were not included. [facility] Neurology General Neurology Consultation Note Consult Neurology Service: [phone] Primary Team: SAMUEL Chief Complaint and Reason [...] was given referral to eye center in [facility], on Friday and Friday, vision on the left eye worsened significantly and she lost her vision on the left eye. On Friday 09/22, patient came to [place] to see an eye doctor, whoasked her to go to the ED. patient initially went to [facility], given Solu-Medrol 250 mg IVonce, transferred to [facility] for further workup and ophthalmology evaluation. According to the patient, her right eye vision worsened significantly on Friday, and she lost her vision on both eyes. Patient had no past medical history, she has not taking any scheduled medications, patient lives with her daughter, she is driving and working. Walking with no assistive devices. Upon initial assessment in [facility], patient had complete vision loss on [...] Reportedly ESR and CRP were elevated at [facility] Imaging: CTH, head and neck CTA done at [facility], reportedly unremarkable Other Testing: None Assessment: [...] follow Carlitos Caraballo MD PGY-3, Neurology Resident [facility] Staffed with: (Dr. Byrne) This patient is being followed by the Neurology Resident service. Contact attending directly during these hours: Friday to 7:30-8:30 A.M. to Friday 12-1:00 p.m. Primary Neurology service: [phone] Consult neurology service: [phone] Resident Stroke Service: [phone] If the patient belongs to the Stroke [...] Sandy Pizano MD, PhD documented in this encounterUniversity Hospitals Geneva Medical CenterPylba [facility] [id number] Procedure note* Op Note - Kristel Reid [...] days ago. She was evaluated by her cardiac nurse specialist who felt that vision loss was [...] Condition: stable Kristel Reid MD [facility]02-01-2024 Attending History and physical note* Kristel Reid MD - 09/25/2023 7:30 AM EST HISTORY AND PHYSICAL INTERVAL NOTE: Jose David 1945 [id number] H&P reviewed. The patient was examined and there are no changes to the H&P. Kristel Reid MD Source Note - Faisal Rascon APRN-[facility] - 09/24/2023 10:37 AM EST Images from the original note were not included. Vascular History and Physical Examination/Consultation Note Reason for Consultation Bilateral temporal artery biopsy, concern for giant cell arteritis History and Present Illness Jose David is a 78 y.o. White or female who presents to the emergency department from her cardiac nurse specialist's office. She was being evaluated with an cardiac nurse specialist for possible giant cell arthritis. She [...] questions or concerns regarding management. ALANNA Guzman [facility] [place] Office/After hours: [phone] ALANNA Guzman 09/24/23 1521 ALANNA Guzman 09/25/23 0730 [employer]02-01-2024 History and physical note* Kristel Reid MD - 09/25/2023 7:30 AM EST HISTORY AND PHYSICAL INTERVAL NOTE: Jose David 1945 [id number] H&P reviewed. The patient was examined and [...] presents to the emergency department from her cardiac nurse specialist's office. She was being evaluated with an cardiac nurse specialist for possible giant cell arthritis. She [...] questions or concerns regarding management. ALANNA Guzman [facility] [place] Office/After hours: [phone] ALANNA Guzman 09/24/23 1521 ALANNA Guzman 09/25/23 0730 * Nandini Walters MD - 09/23/2023 12:34 AM EST Images from the original note were not included. [facility] History and Physical 09/23/2023 Patient [...] on ophthalmology recommendation, patient saw Ophthalmology in [place] today evaluated for possible giant cell arthritis, [...] pedis pulses present and equal bilaterally Skin: [place], warm, dry; no rashes or lesions Neurologic: [...] Electronically signed by: MD Nandini PAREDES M.D. [facility] This note was completed using a voice executive talent acquisition consultant system. Every effort was made to ensure accuracy. However, inadvertent computerized executive talent acquisition consultant errors may be present. documented in this encounterProtestant [facility]01-31-2024 Plan of care note * Plan of Care - Jc Pelayo RN - 09/24/2023 11:51 PM EST Problem: Low Risk Fall Score Description: Clifford Fall Score of 0 - 24 or indicated by [facility] Assessment Goal: Patient should be free from fall Description: Interventions: 1. [place] to environment 2. Hourly rounds addressing the [...] non-skid footwear 11. Teach patient and patient investment representative to maintain environment for safety and engage in all aspects of fall prevention program Outcome: Progressing Note: Evaluation of progress towards goal: Patient remained free from falls. Will continue to utilized fall prevention measures. [employer] [id number] Plan of care note* Plan of Care - Faiza Valverde RN - 09/24/2023 11:08 AM EST Problem: Pain Goal: Patient goal is pain score less than 4, able to rest, and participant in treatment plan as appropriate Description: INTERVENTIONS: 1. Encourage patient or legal investment representative to report early pain and ask [...] per policy 9. Teach patient or legal investment representative interventions for comforting Outcome: Progressing Note: [...] at the bedside 7. Instruct patient/ patient investment representative about use of safety devices 8. Include patient/ patient investment representative in decisions related to safety Outcome: [...] hygiene technique 7. Identify and instruct patient/patient investment representative in use of appropriate isolation precautionsfor identified infection/symptoms 8. Provide and discuss with patient/patient investment representative on educational MDRO sheet 9. Encourage and monitor nutritional status daily and consult field cane scaler if indicated 10. Implement neutropenic guidelines as needed 11. Review exposure to history of communicable disease and recent travel history on admission 12. Encourage annual influenza vaccine 13. Encourage pneumonia vaccine Outcome: Progressing Note: Evaluation of progress towards goal: Patient afebrile, Monitoring labs. Problem: Knowledge Deficit Goal: Patient/patient investment representative demonstrates understanding of disease process, treatment plan,medications, and discharge instructions Description: INTERVENTIONS 1. Complete learning assessment and assess knowledge base 2. Provide teaching at level of understanding 3. Provide teaching via preferred learning method(s) Outcome: Progressing Note: Evaluation of progress towards goal: POC reviewed with patient, verbalizes understanding [employer]01-31-2024 Progress note* Discharge Planning Note - Sophia [...] - Sophia Rajan RN 09/24/23 10:57 AM [employer]01-31-2024 Consult note* ALANNA Guzman - 09/24/2023 10:37 AM EST Images from the original note were not included. Vascular History and Physical Examination/Consultation Note Reason for Consultation Bilateral temporal artery biopsy, concern for giant cell arteritis History and Present Illness Jose David is a 78 y.o. White or female who presents to the emergency department from her cardiac nurse specialist's office. She was being evaluated with an cardiac nurse specialist for possible giant cell arthritis. She [...] questions or concerns regarding management. ALANNA Guzman [facility] [place] Office/After hours: [phone] ALANNA Guzman 09/24/23 1521 [facility] [employer] [facility] Work Phone: [phone] Plan of care note* Plan of Care - Mago Moreau RN - 09/23/2023 9:58 PM EST Problem: Pain Goal: Patient goal is pain score less than 4, able to rest, and participant in treatment plan as appropriate Description: INTERVENTIONS: 1. Encourage patient or legal investment representative to report early pain and ask [...] per policy 9. Teach patient or legal investment representative interventions for comforting Outcome: Progressing Note: [...] at the bedside 7. Instruct patient/ patient investment representative about use of safety devices 8. Include patient/ patient investment representative in decisions related to safety Outcome: [...] hygiene technique 7. Identify and instruct patient/patient investment representative in use of appropriate isolation precautionsfor identified infection/symptoms 8. Provide and discuss with patient/patient investment representative on educational MDRO sheet 9. Encourage and monitor nutritional status daily and consult field cane scaler if indicated 10. Implement neutropenic guidelines as needed 11. Review exposure to history of communicable disease and recent travel history on admission 12. Encourage annual influenza vaccine 13. Encourage pneumonia vaccine Outcome: Progressing Note: Evaluation of progress towards goal: monitor for signs and symptoms of infection [facility]01-30-2024 Plan of care note* Plan of Care - Sabas Snow RN - 09/23/2023 4:41 PM EST Problem: Pain Goal: Patient goal is pain score less than 4, able to rest, and participant in treatment plan as appropriate Description: INTERVENTIONS: 1. Encourage patient or legal investment representative to report early pain and ask [...] per policy 9. Teach patient or legal investment representative interventions for comforting Outcome: Progressing Note: [...] at the bedside 7. Instruct patient/ patient investment representative about use of safety devices 8. Include patient/ patient investment representative in decisions related to safety Outcome: [...] hygiene technique 7. Identify and instruct patient/patient investment representative in use of appropriate isolation precautionsfor identified infection/symptoms 8. Provide and discuss with patient/patient investment representative on educational MDRO sheet 9. Encourage and monitor nutritional status daily and consult field cane scaler if indicated 10. Implement neutropenic guidelines as needed 11. Review exposure to history of communicable disease and recent travel history on admission 12. Encourage annual influenza vaccine 13. Encourage pneumonia vaccine Outcome: Progressing Note: Evaluation of progress towards goal: Patient receiving antibiotics as ordered. Continue to monitor. Problem: Knowledge Deficit Goal: Patient/patient investment representative demonstrates understanding of disease process, treatment [...] - 24 or indicated by [facility] Assessment Goal: Patient should be free from fall Description: Interventions: 1. [place] to environment 2. Hourly rounds addressing the [...] non-skid footwear 11. Teach patient and patient investment representative to maintain environment for safety and engage in all aspects of fall prevention program Outcome: Progressing Note: Evaluation of progress towards goal: Patient free from falls and injury. Continue to monitor. [facility] [employer] [id number] Consult note* Bayron Denise - 09/23/2023 4:37 PM ESTAssociated Order(s): IP CONSULT TO SPIRITUAL CARE Summary: Spiritual Care Consult for Advance Directive Assistance Spiritual Care Consult for Advance Directive Assistance Advance Directive: Inspector And Clerk provided patient with education on the need for advance directives and a copy of the [place] Advance Directive packet. Inspector And Clerk assisted patient in completing the advance directives. Patient completed and signed a healthcare power of title attorney. Patient was given the original and a copy. One copy placed in patient's chart. A interventional radiologist is available 17/03 to offer spiritual and emotional support and may be reached through the [facility] decker operator at [phone]. [facility]01-30-2024 Progress note* Discharge Planning Note - [...] care - LIANE KEN 09/23/23 2:07 PM [employer]01-30-2024 Progress note* Situational Awareness - ALANNA Rosario - 09/23/2023 12:58 PM EST Consulted for MAUREEN to rule out embolic process in setting of sudden vision loss. Discussed with neurology, recommend surface echo with bubble study prior to consideration of MAUREEN. If TTE unremarkable and continued concerns, please let us know. ALNANA Rosario 09/23/23 1300 [employer] Work Phone: [phone] Consult note* Montana Bartlett MD - 09/23/2023 12:15 PM ESTAssociated Order(s): IP CONSULT TO OPHTHALMOLOGY Date: Reason for consult: I have been asked to evaluate the eyes of this 78-year-old lady who noticed sudden onset of foggy in the left eye 4 days ago this rapidly progressed to complete loss of vision in the left eye.. She saw an engine repairer who indicated to her that she had [...] is indicated. Thanks Montana Bartlett MD, FACS. [employer] Work Phone: 1(204) 435-832401-30-2024 Consult note* Joni Pizano MD - 09/23/2023 [...] the patient was given a referral to cardiac nurse specialist. Over the weekend patients vision in left eye continued to worsen and eventually lost all vision in left eye. Patient was seen by cardiac nurse specialist 09/22/2023 and time she would decreased vision also in her right eye. It was recommended that she go straight to the emergency department, for concern for giant cell arteritis. Initially she went to [facility] where they gave her Solu-Medrol 250 mg IV 1 dose and then transferred her to [facility]. 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 Caitie Wilder PA-C [facility] [address] [place] [address] September 23, 2023, 10:20 AM Please note that portions of this note were generated using voice recognition [employer] dictation software. Although every effort was made to ensure the accuracy of this automated executive talent acquisition consultant, some errors in executive talent acquisition consultant may have occurred. I have personally performed [...] need to start aspirin Joni PIZANO M.D. [facility] Day time contact: After hours answering service: [phone] [place] [address] [employer] Work Phone: [phone] Plan of care note* Plan of Care [...] at the bedside 7. Instruct patient/ patient investment representative about use of safety devices 8. Include patient/ patient investment representative in decisions related to safety Outcome: [...] hygiene technique 7. Identify and instruct patient/patient investment representative in use of appropriate isolation precautionsfor identified infection/symptoms 8. Provide and discuss with patient/patient investment representative on educational MDRO sheet 9. Encourage and monitor nutritional status daily and consult field cane scaler if indicated 10. Implement neutropenic guidelines as [...] - 24 or indicated by [facility] Assessment Goal: Patient should be free from fall Description: Interventions: 1. [place] to environment 2. Hourly rounds addressing the [...] non-skid footwear 11. Teach patient and patient investment representative to maintain environment for safety and engage in all aspects of fall prevention program Outcome: Progressing Note: Evaluation of progress towards goal: Patient remained free from falls. Will continue to utilized fall prevention measures. [facility]01-30-2024 Consult note* Carlitos Caraballo MD - 09/23/2023 12:53 AM ESTAsscle[facility] Order(s): IP CONSULT TO NEUROLOGY Images from the original note were not included. [facility] Neurology General Neurology Consultation Note Consult Neurology Service: [phone] Primary Team: [facility] Chief Complaint and Reason for [...] was given referral to eye center in [facility], on Friday and Friday, vision on the left eye worsened significantly and she lost her vision on the left eye. On Friday 09/22, patient came to [place] to see an eye doctor, whoasked her to go to the ED. patient initially went to [facility], given Solu-Medrol 250 mg IVonce, transferred to [facility] for further workup and ophthalmology evaluation. According to the patient, her right eye vision worsened significantly on Friday, and she lost her vision on both eyes. Patient had no past medical history, she has not taking any scheduled medications, patient lives with her daughter, she is driving and working. Walking with no assistive devices. Upon initial assessment in [facility], patient had complete vision loss on [...] Reportedly ESR and CRP were elevated at [facility] Imaging: CTH, head and neck CTA done at [facility], reportedly unremarkable Other Testing: None Assessment: [...] follow Carlitos Caraballo MD PGY-3, Neurology Resident [facility] Staffed with: (Dr. Byrne) This patient is being followed by the Neurology Resident service. Contact attending directly during these hours: Friday to 7:30-8:30 A.M. to Friday 12-1:00 p.m. Primary Neurology service: [phone] Consult neurology service: [phone] Resident Stroke Service: [phone] If the patient belongs to the Stroke [...] retinal arteries right > left and suspicious [place] red spot on the right; no other [...] follow and update Sandy Pizano MD, PhD [facility] [employer] [facility] Work Phone: [phone]) 669-664201-30-2024 History and physical note* Nandini Walters MD - 09/23/2023 12:34 AM EST Images from the original note were not included. [facility] History and Physical 09/23/2023 [...] on ophthalmology recommendation, patient saw Ophthalmology in [place] today evaluated for possible giant cell arthritis, [...] pedis pulses present and equal bilaterally Skin: [place], warm, dry; no rashes or lesions Neurologic: [...] Electronically signed by: MD Nandini PAREDES M.D. [facility] This note was completed using a voice executive talent acquisition consultant system. Every effort was made to ensure accuracy. However, inadvertent computerized executive talent acquisition consultant errors may be present. [facility]* Diagnosis Onset Date Resolution Status GERD (gastroesophageal reflux disease) acute Hospital discharge follow-up acute Temporal arteritis acute Vision loss, bilateral acute [facility] Work Phone: Evaluation note* Diagnosis Onset Date Resolution Status GERD (gastroesophageal reflux disease) acute History of cataract extraction with lens replacement acute Hospital discharge follow-up acute Temporal arteritis acute Vision loss, bilateral acute Acute effusion of left ear a cute Eustachian tube dysfunction acute [facility] Work Phone: Evaluation noteNo assessment information available [facility] Work Phone: evaluation note* Diagnosis Giant cell arteritis (CMS-HCC)- Primary Giant cell arteritis documented in this encounter [facility] Diagnosis Giant cell arteritis (CMS-HCC)- Primary Giant cell arteritis documented [facility] encounter [facility]* Diagnosis Vision blurred- Primary Other specified visual disturbances B12 deficiency Thrombocytosis Essential thrombocythemia Vision blurred Other specified visual disturbances Temporal arteritis (CMS-HCC) Giant cell arteritis Stroke-like symptoms documented [facility] this encounter [facility] Diagnosis Giant cell arteritis (CMS-HCC)- Primary Giant cell arteritis [facility] encounter [facility] Diagnosis Normocytic anemia- Primary Unspecified anemia Thrombocytosis Essential thrombocythemia Anemia, unspecified type [facility] encounter [facility] Diagnosis Giant cell arteritis (CMS-HCC)- Primary Giant cell arteritis Stroke-like symptoms Vision blurred Other specified visual disturbances Anemia, unspecified type [facility] Diagnosis Normocytic anemia- Primary Unspecified anemia Thrombocytosis Essential thrombocythemia documented in this encounter [facility]* Diagnosis Normocytic anemia- Primary Unspecified anemia Thrombocytosis Essential thrombocythemia Anemia, unspecified type Iron deficiency Disorders of iron metabolism Giant cell arteritis (CMS-HCC) Giant cell arteritis Vision blurred Other specified visual disturbances [facility] Diagnosis Onset Date Resolution Status Admit Date Left otitis media acute 2024 2:27pm Muscle spasm acute September 2:27pm Neck pain acute October 13, 2024 2:27pm [facility] Work Phone: Evaluation note* Diagnosis Iron deficiency- Primary Disorders of iron [...] Documents on File Type Date Recorded Patient Kick Press Operator Expl anation Durable Power of Speech Therapy Teacher 10/03/2023 8:14 AM Durable Power of Speech Therapy Teacher 09/23/2023 4:17 PM [facility] er of Speech Therapy Teacher Date Activated Date Inactivated Comments 09/23/2023 12:33 AM 09/26/2023 7:44 PM Healthcare Agents on File Name Relationship Healthcare Agent [facility] Communication Mike Silvaey [facility] Health Care Agent Malinda Brito Daughter First Alternate Health Care Agent Healthcare Agents on File Name Relationship Healthcare Agent Relationshi p Communication Mike David Son Health Care Agent Malinda Brito Daughter First Alternate Health Care Agent Documents on File Type Date Recorded Patient Kick Press Operator Expl anation Durable Power of Speech Therapy Teacher 09/23/2023 4:17 PM [facility] er of Speech Therapy Teacher Latest Code Status on File Code Status Date Activated Date Inactivated Comments Full Code 09/23/2023 12:33 AM 09/26/2023 7:44 PM Healthcare Agents on File Name Relationship Healthcare Agent Relationshi p Communication Mike David Son Health Care Agent Malinda Brito Daughter First Alternate Health Care Agent Documents on File Type Date Recorded Patient Kick Press Operator Expl anation Durable Power of Speech Therapy Teacher 09/23/2023 4:17 PM [facility] er of Speech Therapy Teacher Latest Code Status on File Code Status [...] 2:27pm Neck pain October 13, 2024 2:27pm Chief Complaint Admit Date Ear & Neck Pain October 13, 2024 2:27pm Amb Documentation November 22, 2024 1:4 4pm Amb Documentation December 10, 2024 10: 07am Check Up December 16, 2024 1:5 0pm Reason for Visit Admit Date Left otitis media October 13, 2024 2:27pm Muscle spasm October 13, 2024 2:27pm Neck pain October 13, 2024 2:27pm GERD (gastroesophageal reflux disease) A pril 2024 1:50pm Reason for Referral Specialty Diagnoses / Procedures Referred By Jessica ga Referred To Contact Diagnoses B12 deficiency Thrombocytosis Vision blurred Temporal arteritis ([facility]) Procedures Follow-up with primary care provider Bart Milian MD [address] [address] Referral ID Status Reason Start Date Expiration Date V isits Requested Visits Authorized [id number] Pending Review 09/26/2023 09/25/2024 1 1 Specialty Diagnoses / Procedures Referred By Contac t Referred To Contact Procedures Adult diet Bart Milian MD [address] [facility] [address] [place] [address] Referral ID Status Reason Start Date Expiration Date V isits Requested Visits Authorized [id number] Pending Review 09/26/2023 09/25/2024 1 1 Additional Source Comments INFORMATION SOURCE (unrecogn ized section and content) DATE CREATED AUTHOR 11/18/2021 [facility] DATE CREATED AUTHOR AUTHOR'S ORGANIZ ATION 01/31/2023 [facility] DATE CREATED AUTHOR AUTHOR'S ORGANIZ ATION 04/15/2023 [facility] DATE CREATED AUTHOR AUTHOR'S ORGANIZ ATION 10/04/2023 [facility] DATE CREATED AUTHOR AUTHOR'S ORGANIZ ATION 07/24/20[facility] DATE CREATED AUTHOR AUTHOR'S ORGANIZ ATION 01/24/2025 [facility] DATE CREATED AUTHOR AUTHOR'S ORGANIZ ATION 01/26/2025 [facility] Care Teams (unrecognized sec tion and content) Team Status: Active Member Role Status Dates Giovanna Graf APRN MEDICAL RADIATION TECH-C Primary Care Provider Active Team Status: Inactive Member Role Status Dates Giovanna Graf APRN MEDICAL RADIATION TECH-C Primary Care Provider, Attending Provider Active Start: October 16, 2023 End: October 16, 2023 Team Status: Active Member Role Status Dates Giovanna Graf APRN MEDICAL RADIATION TECH-C Primary Care Provider, Attending Provider Active Start: October 30, 2023 Team Status: Active Member Role Status Dates Giovanna Graf APRN MEDICAL RADIATION TECH-C Primary Care Provider Active Start: December 29, 2023 Jt Jasso MD Attending Provider Active S tart: December 29, 2023 Team Status: Inactive Member Role Status Dates Giovanna Graf APRN MEDICAL RADIATION TECH-C Primary Care Provider, Attending Provider Active Start: December 29, 2023 End: December 29, 2023 Team Status: Active Member Role Status Dates Giovanna Rohrbacher , [employer] MEDICAL RADIATION TECH-C Primary Care Provider, Attending Provider Active Start: March 05, 2024 Team Status: Inactive Member Role Status Dates Giovanna REINA Graf MEDICAL RADIATION TECH-C Primary Care Provider, Attending Provider Active Start: April 13, 2024 End: April 13, 2024 Team Status: Active Member Role Status Dates Giovanna REINA Graf MEDICAL RADIATION TECH-C Primary Care Provider Active Start: April 302023 Jt Jasso MD Attending Provider Active S tart: April 30, 2024 Team Status: Active Member Role Status Dates Giovanna REINA Graf MEDICAL RADIATION TECH-C Primary Care Provider, Attending Provider Active Start: July 07, 2024 Team Status: Inactive Member Role Status Dates Giovanna REINA Graf MEDICAL RADIATION TECH-C Primary Care Provider, Attending Provider Active Start: July 12, 2024 End: July 12, 2024 Psychiatric Assistant Relationship Specialty Start Date End Date Giovanna Graf APRN-MEDICAL RADIATION TECH [address] [place] [id number] PCP - General Nurse Practitioner 10/10/23 Psychiatric Assistant Relationship Specialty Start Date End Date Giovanna Graf APRN-MEDICAL RADIATION TECH [address] [place] [id number] PCP - General Nurse Practitioner 10/10/23 Psychiatric Assistant Relationship Specialty Start Date End Date John Patel DO [address] [place] [id number] PCP - General 01/23/17 Psychiatric Assistant Relationship Specialty Start Date End Date John Patel DO [address] [place] [id number] PCP - General 01/23/17 Psychiatric Assistant Relationship Specialty Start Date End Date Giovanna Graf APRN-MEDICAL RADIATION TECH [address] [place] [address] [place] [address] PCP - General Nurse Practitioner 10/10/23 Psychiatric Assistant Relationship Specialty Start Date End Date LesiaBrookeGiovannaREINA-MEDICAL RADIATION TECH [address] [facility] [place] [address] PCP - General Nurse Practitioner 10/10/23 Team Status: Inactive Member Role Status Dates Giovanna Graf APRN MEDICAL RADIATION TECH-C Primary Care Provider Active Start: July 162023 End: July 16, 2024 Angel Amanda DO Attending Provider Active Sta rt: July 16, 2024 End: July 16, 2024 Team Status: Active Member Role Status Dates Giovanna Graf APRN MEDICAL RADIATION TECH-C Primary Care Provider Active Start: September 02, 2024 Jt Jasso MD Attending Provider Active S tart: September 02, 2024 Team Status: Inactive Member Role Status Dates Giovanna Graf APRN MEDICAL RADIATION TECH-C Primary Care Provider, Attending Provider Active Start: October 13, 2024 End: October 13, 2024 Team Status: Active Member Role Status Dates Giovanna Graf APRN MEDICAL RADIATION TECH-C Primary Care Provider Active Start: November 06, 2024 Jt Jasso MD Attending Provider Active S tart: November 06, 2024 Team Status: Active Member Role Status Dates Giovanna Graf APRN MEDICAL RADIATION TECH-C Primary Care Provider Active Start: November 22, 2024 Priyanka Cortez CMA Attending Provider Active Start: November 22, 2024 Team Status: Active Member Role Status Dates Giovanna Graf APRN MEDICAL RADIATION TECH-C Primary Care Provider Active Start: December 10, 2024 Alethea Mckeon DO Attending Provider Active Start: December 10, 2024 Team Status: Active Member Role Status Dates Giovanna Graf APRN MEDICAL RADIATION TECH-C Primary Care Provider Active Start: December 10, 2024 Priyanka Cortez CMA Attending Provider Active Start: December 10, 2024 Team Status: Inactive Member Role Status Dates Giovanna Graf APRN MEDICAL RADIATION TECH-C Primary Care Provider, Attending Provider Active Start: December 16, 2024 End: December 16, 2024 Psychiatric Assistant Relationship Specialty Start Date End Date Giovanna Graf APRN-MEDICAL RADIATION TECH [address] [place] [address] PCP - General Nurse Practitioner 10/10/23 Goals [...] 09/29/2023 Specialty Diagnoses / Procedures Referred By Contac t Referred To Contact Diagnoses Vision blurred Stroke-like symptoms CVA symptoms Tono Pan MD [address] [place] [address] Referral ID Status Reason Start Date Expiration Date Visits Re quested Visits Authorized [id number] 1 1 Reason Comments Follow-up Hospital discharge [...] Auto Held - Provider: Automatic Transfer Provider)1151 ([facility] Unhold - Provider: Automatic Transfer [...] Bag - Provider: Faiza Valverde RN) 0613 ([facility] Hold - Provider: Automatic Transfer Provider - Reason: Patient not available)0900 (Dose Auto Held - Provider: Automatic Transfer Provider)1151 ([facility] Unhold - Provider: Automatic Transfer [...] Chin RN)2100 (Not Given - Provider: Jc Pelayo, RN - Reason: IV infusing) 0613 ([facility] Hold - Provider: Automatic Transfer Provider - Reason: Patient not available)0900 (Dose Auto Held - Provider: Automatic Transfer Provider)1151 ([facility] Unhold - Provider: Automatic Transfer Provider)2100 (Not Given - Provider: Jc Pelayo, RN - Reason: Other) 0901 (Given - Provider: Caryn Briceno RN) sulfamethoxazole-trimet hoprim (BACTRIM DS) 800-160 mg tablet 1 tablet 1 tablet, oral, 3 times weekly (Once per day on Friday), First dose on Fri09/26/23 at 0900, Indication: PJP prophylaxis 0857 (Given - Provider: Caryn Briceno, ASHIA) PRN Medication Order 09/24/2023 09/25/2023 09/26/2023 acetaminophen (TYLENOL) tablet 650 mg 650 mg, oral, 3 times daily PRN, mild pain - pain scale 1-3, moderate pain - pain scale 4-6, Temperature greater than 38.3 C, Starting on Fri09/23/23 at 0032, For 2 doses, [Warning: Total Acetaminophen not to exceed more than 4 grams (4000 mg) in 24 hours] 06 ([facility] Hold - Provider: Automatic Transfer Provider - Reason: Patient not available)1007 (Given - Provider: Jennifer Lawton RN)1151 ([facility] Unhold - Provider: Automatic Transfer Provider) dextrose (GLUTOSE) 40 % gel 15 g 15 g, oral, As needed, low blood sugar, blood glucose less than 70 mg/dL, Starting on Fri09/23/23 at 0032, If patient conscious and taking PO. If blood glucose is not greater than 70 mg/dL after initial treatment, repeat treatment. 612 ([facility] Hold - Provider: Automatic Transfer Provider - Reason: Patient not available)1151 ([facility] Unhold - Provider: Automatic Transfer [...] mg/dL after initial treatment, repeat treatment. 06 ([facility] Hold - Provider: Automatic Transfer Provider - Reason: Patient not available)1151 ([facility] Unhold - Provider: Automatic Transfer [...] mg/dL after initial treatment, repeat treatment. 612 ([facility] Hold - Provider: Automatic Transfer Provider - Reason: Patient not available)1151 ([facility] Unhold - Provider: Automatic Transfer Provider) ondansetron (PF) (ZOFRAN) injection 4 mg 4 mg, intravenous, Every 8 hours PRN, nausea, vomiting, Starting on Fri09/23/23 at 0032, Administer over 2-5 minutes. 612 ([facility] Hold - Provider: Automatic Transfer Provider - Reason: Patient not available)1151 ([facility] Unhold - Provider: Automatic Transfer Provider) sennosides-docusate sodium (SENOKOT-S) 8.6-50 mg 1 tablet 1 tablet, oral, Every 12 hours PRN, constipation, Starting on Fri09/23/23 at 0032 0613 ([facility] Hold - Provider: Automatic Transfer Provider - Reason: Patient not available)1151 ([facility] Unhold - Provider: Automatic Transfer [...] use, Starting on Fri09/23/23 at 0032 0613 ([facility] Hold - Provider: Automatic Transfer Provider - Reason: Patient not available)1151 ([facility] Unhold - Provider: Automatic Transfer Provider) sodium chloride 0.9 % flush bag 25 mL, intravenous, at 100 mL/hr, Administer over 15 Minutes, As needed, line care, line care after IVPB administration, Starting on Fri09/23/23 at 0032 0613 ([facility] Hold - Provider: Automatic Transfer Provider - Reason: Patient not available)1151 ([facility] Unhold - Provider: Automatic Transfer Provider) sodium chloride 0.9 % infusion 20 mL/hr, intravenous, Continuous PRN, to maintain patency of lines, Starting on Fri09/23/23 at 0032 1008 (Restarted - Provider: Kimberly Chin RN) 0613 ([facility] Hold - Provider: Automatic Transfer Provider - Reason: Patient not available)1151 ([facility] Unhold - Provider: Automatic Transfer Provider) sodium chloride 0.9% (NS) irrigation bottle (CANCELED) As needed, Starting on Fri09/25/23 at 0807, Intra-op 0807 (Given - Provider: [...] BE BASED ON THE PRIMARY CLINICAL RECORDS. [facility]. provides no warranty or guarantee of the accuracy or completeness of information in this document.
[2025-01-27 08:25] LABS: Basophils Percent Auto 0.7 % (0.2-2.0); Eosinophils Absolute Auto 0.1 10^3/uL (0.0-0.7); Eosinophils Percent Auto 2.4 % (0.9-7.0); Hematocrit 36.2 % (36.0-48.0); Hemoglobin 12.1 g/dL (12.0-16.0); Immature Granulocytes Abs Auto 0.01 10^3/uL (0.00-0.03); Immature Granulocytes Pct Auto 0.2 % (0.0-0.5); Lymphocytes Absolute Auto 2.7 10^3/uL (1.2-3.8); Lymphocytes Percent Auto 45.7 % (20.5-60.0); Mean Corpuscular HGB Conc 33.4 g/dL (29.9-35.2); Mean Corpuscular Hemoglobin 31.6 pg (26.7-34.0); Mean Corpuscular Volume 94.5 fL (81.0-99.0); Mean Platelet Volume 9.6 fL (9.5-13.5); Monocytes Absolute Auto 0.5 10^3/uL (0.3-0.8); Monocytes Percent Auto 8.6 % (1.7-12.0); Neutrophils Absolute Auto 2.5 10^3/uL (1.4-6.5); Neutrophils Percent Auto 42.4 % (43.0-75.0); Platelet Count 260 10^3/uL (150-450); Red Blood Count 3.83 10^6/uL (4.20-5.40); Red Cell Distribution Width 13.6 % (11.0-15.0)
[2025-01-27 08:55] LABS: Percent Iron Saturation 49.8 %
[2025-01-28 04:07] LABS: Vitamin B12 472 pg/mL (232-1245)
== END 2025-01-27 07:39 | disposition home or self-care (01) ==
PROVIDERS: PCP Nurse Practitioner Family; Visit Provider Internal Medicine
DX: D64.9 Anemia, unspecified (principal); D75.839 Thrombocytosis, unspecified; E61.1 Iron deficiency
CPT/HCPCS: 36415; 82607; 82728; 83540; 83550; 85025

== ENCOUNTER 2025-02-07 10:18 | Outpatient (OUT) | payer MEDICARE, SELFPAY ==
[2025-02-07 10:51] LABS: Basophils Percent Auto 0.5 % (0.2-2.0); Eosinophils Absolute Auto 0.1 10^3/uL (0.0-0.7); Eosinophils Percent Auto 1.8 % (0.9-7.0); Hematocrit 35.8 % (36.0-48.0); Immature Granulocytes Abs Auto 0.03 10^3/uL (0.00-0.03); Immature Granulocytes Pct Auto 0.4 % (0.0-0.5); Lymphocytes Absolute Auto 3.8 10^3/uL (1.2-3.8); Lymphocytes Percent Auto 48.1 % (20.5-60.0); Mean Corpuscular HGB Conc 33.5 g/dL (29.9-35.2); Mean Corpuscular Hemoglobin 32.5 pg (26.7-34.0); Mean Platelet Volume 8.7 fL (9.5-13.5); Monocytes Absolute Auto 0.6 10^3/uL (0.3-0.8); Monocytes Percent Auto 8.2 % (1.7-12.0); Neutrophils Absolute Auto 3.2 10^3/uL (1.4-6.5); Platelet Count 284 10^3/uL (150-450); Red Blood Count 3.69 10^6/uL (4.20-5.40); Red Cell Distribution Width 13.9 % (11.0-15.0); White Blood Count 7.8 10^3/uL (4.0-11.0)
[2025-02-07 11:42] LABS: Alanine Aminotransferase 42 U/L (14-59); Albumin Globulin Ratio 1.3; Albumin Level 3.5 g/dL (3.4-5.0); Alkaline Phosphatase 73 U/L (46-116); Anion Gap 10.7; Aspartate Amino Transferase 23 U/L (15-37); BUN Creatinine Ratio 32.9; Bilirubin Total 0.4 mg/dL (0.2-1.0); Calcium 8.9 mg/dL (8.5-10.1); Carbon Dioxide 30.2 mmol/L (21.0-32.0); Chloride 105 mmol/L (98-107); Chol HDL Ratio 3.3; Cholesterol 307 mg/dL (<=200); Estimated GFR (African America >60 (>=60 mL/min/1.73m^2); Estimated GFR (Non-African Ame >60 (>=60 mL/min/1.73m^2); Globulin 2.7 g/dL; Glucose 85 mg/dL (74-106); HDL Cholesterol 93 mg/dL (40-60); Potassium 3.9 mmol/L (3.5-5.1); Sodium 142 mmol/L (136-145); Total Protein 6.2 g/dL (6.4-8.2); Triglycerides 165 mg/dL (<=150)
[2025-02-07 11:49] LABS: Erythrocyte Sedimentation Rate 2 mm/hr (<=30)
== END 2025-02-07 10:19 | disposition home or self-care (01) ==
LOC: LAB 10:20
PROVIDERS: PCP Nurse Practitioner Family; Visit Provider Internal Medicine
DX: M31.6 Other giant cell arteritis (principal); Z79.52 Long term (current) use of systemic steroids; D84.9 Immunodeficiency, unspecified
CPT/HCPCS: 36415; 80053; 80061; 85025; 85652

== ENCOUNTER 2025-02-07 10:23 | Outpatient (OUT) | payer MEDICARE, SELFPAY ==
--- OUTSIDE RECORDS SUMMARY | 2025-01-24 10:30 | XMS_ITS | Encounter Summary ---
Author Organization [employer] Address [id number] [address] [place] [address] Care Team Providers Care Waxing Machine Operator Name Role Phone Giovanna Graf Primary Care Provid er Reason for Visit * Reason Comments Follow-up Encounter Details Date Type Department Care Team (Late st Contact Info) Description 01/24/2025 10:30 AM EDT Office Visit [facility] - Medical Oncology [address] [place] [phone] Kari Pablo, DIRECTOR MUSEUM OR ZOO-ELECTRONIC VIDEO GAMES SERVICER [address] [place] [address], [address] [place] [id number] Iron deficiency (Primary Dx); Normocytic anemia; Thrombocytosis; Anemia, unspecified type Social History Tobacco Use Types Packs/Day Years Used Date Smoking Tobacco: Never Smokeless Tobacco: Never Alcohol Use Standard Drinks/Week Comments Never 0 (1 standard drink = 0.6 oz pur e alcohol) AUDIT-C Answer Date Recorded Q1: How often do you have a drink containing alcohol? Never 09/23/2023 Q2: How many drinks containi ng alcohol do you have on a typical day when you are drinking? Patient does not drink Q3: How often do you have si x or more drinks on one occasion? Never 09/23/2023 Overall Financial Resource Strain (CARDIA) Answe r Date Recorded How hard is it for you to pa y for the very basics like food, housing, medical care, and heating? Not hard at all 10/10/2024 PHQ-2 Answer Date Recorded Total Score 0 09/23/2023 PRAPARE - Transportation Answer Date Re corded In the past 12 months, has l ack of transportation kept you from medical appointments or from getting medications? No 09/25 In the past 12 months, has l ack of transportation kept you from meetings, work, or from getting things needed for daily living? No 10/10/2024 Housing Instability Answer Date Recorde d Are you worried or concerned that in the next two months you may not have stable housing that you own, rent or stay in as a part of a household? No 10/10/2024 Childcare Answer Date Recorded Childcare Unknown 02/03/2019 Employment Answer Date Recorded Employment Unknown 02/03/2019 Hunger Screening Answer Date Recorded Within the past 12 months we worried whether our food would run out before we got money to buy more. Never True 10/10/2024 Within the past 12 months th e food we bought just didn't last and we didn't have money to get more. Never True 10/10/2024 Purpose - Life Answer Date Recorded Purpose and direction in life Unknown Comments Unknown Sex and Gender Information Value Date Recorded Sex Assigned at Not on file Legal Sex Female 11:28 AM EDT Gender Identity Not on file Sexual Orientation Not on file documented as of this encounter Last Filed Vital Signs Vital Sign Reading Time Taken Comments Blood Pressure 139/69 01/24/2025 9:48 AM EDT Pulse 90 01/24/2025 9:48 AM EDT Temperature 36.7 C (98 F) 01/24/2025 9:48 AM EDT Respiratory Rate 16 01/24/2025 9:48 AM EDT Oxygen Saturation 98% 01/24/2025 9:48 AM EDT Inhaled Oxygen Concentration - - Weight 62.7 kg (138 lb 3.2 oz) 01/24/2025 9:48 A M EDT Height 157.5 cm (5' 2.01 ) 01/24/2025 9:48 AM ED T Body Mass Index 25.27 01/24/2025 9:48 AM EDT documented in this encounter Patient Instructions * Patient Instructions* ALANNA Garcia - 01/24/2025 10:30 AM EDT Labs this week CBC-d, iron panel, ferritin, vitamin B12 Continue ferrous sulfate to 325 mg once daily Continue multivitamin daily with vitamin B12 250 mcg daily SILVIA screen positive with elevated CRP and RF BCR/ABL negative, JAK2 negative Follow up in 3 months with labs prior CBC-d CMP iron panel ferritin vitamin B12 documented in this encounter Progress Notes * ALANNA Garcia - 01/24/2025 10:30 AM EDT Images from the original note were not included. [facility] [address] [place] [phone] 01/24/2025 Chief Complaint Patient presents with Follow-up Subjective/Interval events: Minda David is a 79 y.o. year old female who is an established patient seen today in the Hematology/Medical Oncology clinic. Presents accompanied by her daughter for follow up visit for AMY and vitamin B12 deficiency. She iscurrently taking ferrous sulfate 325 mg daily and vitamin B12 250 mcg daily along with a MVI daily. She tells me that once she gets [...] no significant past medical history presented to front office assistant on 09/19/2023 due to blurry vision in left eye, she was told her optic disc was swollen and the patient was given a referral to health occupations instructor. Over the weekend patients vision in left eye continued to worsen and eventually lost all vision in left eye. Patient was seen by health occupations instructor 09/22/2023 and time she would decreased vision also in her right eye. It was recommended that she go straight to the emergency department, for concern for giant cell arteritis. Initially she went to [facility] where they gave her Solu-Medrol 250 mg IV 1 dose and then transferred her to [facility]. When she arrived at [facility] she had complete vision loss [...] day, repeat CBC and iron study at [facility] in 2 months. Follow-up in 4 months. If patient can not tolerate oral iron supplement, consider IV iron treatment. Review of Symptoms as below unless otherwise stated in HPI ECO- Asymptomatic Physical exam: Vitals: BP 139/69 Pulse 90 Temp 36.7 ??C (98 ??F) (Oral) Resp 16 Ht 157.5 cm (5' 2.01 ) Wt 62.7 kg (138 lb 3.2 oz) SpO2 98% BMI 25.27 kg/m?? Body mass index is 25.27 kg/m??. Wt Readings from Last 3 Encounters: 01/24/25 62.7 kg (138 lb 3.2 oz) 10/11/24 61 kg (134 lb 6.4 oz) 03/08/24 60.2 kg (132 lb 12.8 oz) Physical Exam Constitutional: Appearance: [...] This Visit Hematopoietic and Hemostatic Normocytic anemia Relevant Orders CBC with auto diff Iron and TIBC Ferritin Vitamin B12 Thrombocytosis Relevant Orders CBC with auto diff Iron and TIBC Ferritin Vitamin B12 Other Visit Diagnoses Iron deficiency - Primary Relevant Orders CBC with auto diff Iron and TIBC Ferritin Vitamin B12 Anemia, unspecified type Relevant Orders CBC with auto diff Iron and TIBC Ferritin Vitamin B12 Impression: #. 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 Normocytic anemia, worsening #. Iron deficiency, stable #. Thrombocytosis - worsening and then improving Ferrous sulfate 325 mg BID started with resolution of anemia, iron deficiency, and thrombocytosis initially - No GI distress from ferrous sulfate Plan: Labs this week CBC-d, iron panel, ferritin, vitamin B12 Continue ferrous sulfate to 325 mg once daily Continue multivitamin daily with vitamin B12 250 mcg daily SILVIA screen positive with elevated CRP and RF BCR/ABL negative, JAK2 negative Follow up in 3 months with labs prior CBC-d CMP iron panel ferritin vitamin B12 Thank you for allowing me to participate in this patient's care. ALANNA GARCIA 01/24/2025 10:20 AM Total time spent was 35 minutes: Preparing to see the patient (e.g., review of tests) Obtaining and/or reviewing separately obtained history Performing a medically appropriate examination and/or evaluation Counseling and educating the patient/family/caregiver Referring and communicating with other health resident care supervisor (not separately reported) Documenting clinical information in the electronic or other health record Independently interpreting results (not separately reported) and communicating results to the patient/family/caregiver Care coordination (not separately reported) Please note that portions of this note may have been generated using voice recognition M*Modal dictation software. Although every effort was made to ensure the accuracy of any automated transcriptions, some errors may have occurred. ALANNA Garcia 03/08/24 1507 ALANNA Garcia 10/11/24 1457 ALANNA Garcia 01/24/25 1021 documented in this encounter Plan of Treatment Upcoming Encounters Date Type Department Care Team (Late st Contact Info) Description 05/09/2025 10:45 AM EDT Office Visit [facility] - Medical Oncology [address] [place] [address] Kari Pablo APRN-CNP [address] [place] [address], [place] [address] Scheduled Orders Name Type Priority Associated Diagnoses Orde r Schedule CBC with auto diff Lab Routine Normocytic anemia Thrombocytosis Anemia, unspecified type Iron deficiency prn for 12 Occurrences starting 01/24/2025 until 01/24/2026 Iron and TIBC Lab Routine Normocytic anemia Thrombocytosis Anemia, unspecified type Iron deficiency prn for 12 Occurrences starting 01/24/2025 until 01/24/2026 Ferritin Lab Routine Normocytic anemia Thrombocytosis Anemia, unspecified type Iron deficiency prn for 12 Occurrences starting 01/24/2025 until 01/24/2026 Vitamin B12 Lab Routine Normocytic anemia Thrombocytosis Anemia, unspecified type Iron deficiency prn for 12 Occurrences starting 01/24/2025 until 01/24/2026 documented as of this encounter Goals Goal Patient Goal Type Associated Problems Recent Progress Patient-Stated? Author <enter goal here> General Yes Brynn Mackenzie, WRAPPER HANDS SPRAYER Note: Evaluation of progress towards goal: Home with dtr, self care documented as of this encounter Visit Diagnoses Diagnosis Iron deficiency- Primary Disorders of iron metabolism Normocytic anemia Unspecified anemia Thrombocytosis Essential thrombocythemia Anemia, unspecified type documented in this encounter Additional Health Concerns Assessment Noted Time PHQ-9 Depression Total Score: 0 09/23/19 24 9:39 AM EST documented as of this encounter Care Teams Waxing Machine Operator Relationship Specialty Start Date End Date Giovanna Graf APRN-NP [address] [facility] [place] [address] PCP - General Nurse Practitioner 10/10/23 documented as of this encounter
--- OUTSIDE RECORDS SUMMARY | 2025-02-01 13:15 | XMS_ITS | Encounter Summary ---
Author Organization [facility] Address [address] [place] [address] Care Team Providers Care Die Inspector Name Role Phone Giovanna Graf NP Primary Care Provider [phone] Reason for Referral * Imaging (Routine) - Pending Review Specialty Diagnoses / Procedures Referred By Jessica ga Referred To Contact Cardiology Diagnoses Decreased dorsalis pedis pulse Procedures Vascular US ankle brachial index (LIZABETH) without exercise Jt Jasso MD [address] [place] [address] Phone: tel: fax: Referral ID Status Reason Start Date Expiration Date Visits Requested Visits Authorized [id number] Pending Review Perform Procedure 02/01/2025 02/01/2026 1 1 Reason for Visit * Reason Comments Follow-up GCA. Recent increase in Headaches started approximatly 2 weeks. Improvement with prednisone Encounter Details Date Type Department Care Team (Late st Contact Info) Description 02/01/2025 1:15 PM EDT Follow-Up [facility] Rheumatology [address] [place] [address] Jt Jasso MD [address] [place] [address] GCA (giant cell arteritis) (CMS/HCC) (Primary Dx); longterm systemic steroid user; Immunosuppression; Decreased dorsalis pedis pulse; Other hyperlipidemia; Other specified abnormal immunological findings in serum; Encounter for screening for other viral diseases Social History Tobacco Use Types Packs/Day Years Used Date Smoking Tobacco: Former Cigarettes Smokeless Tobacco: Former Tobacco Cessation:Counseling Given: Not Answered Alcohol Use Standard Drinks/Week Comments Not Currently 0 (1 standard drink = 0.6 oz pur e alcohol) [place] Safety & Environment Answer Date Rec orded Fear of Current or Ex-Partner Not on file Emotionally Abused Not on file 10/17/2023 Physically Abused Not on file 10/17/2023 Sexually Abused Not on file 10/17/2023 Physically or Sexually Abused Not on file Comments Unknown Sex and Gender Information Value Date Recorded Sex Assigned at Not on file Legal Sex Female 11:59 PM EST Gender Identity Not on file Sexual Orientation Not on file documented as of this encounter Last Filed Vital Signs Vital Sign Reading Time Taken Comments Blood Pressure 122/64 02/01/2025 1:17 PM EDT Pulse - - Temperature - - Respiratory Rate - - Oxygen Saturation - - Inhaled Oxygen Concentration - - Weight 61.7 kg (136 lb) 02/01/2025 1:17 PM EDT Height - - Body Mass Index 24.87 10/06/2024 2:01 PM EST documented in this encounter Progress Notes * Travon Brito MD - 02/01/2025 1:15 PM EDT Subjective Patient ID: Minda David is a 79 y.o. female who presents for follow up. HPI She was admitted to [facility] end of August 2023 due to bilateral vision loss. She underwentbilateral TA biopsy, which confirmed GCA. Her head hurt across the front and sometimes behind the eyes so we increased prednisone from 2.5 mgdaily to 10 mg daily on 01/25/25. As [...] Seen by Dr Brito and Dr Jasso Cosigned by Jt Jasso MD at 02/01/2025 1:56 PM EDT Associated attestation - Jt Jasso MD - 02/01/2025 1:56 PM EDT GC: I saw this patient. I personally performed the critical/braswell portions that determines the level of service. I was directly involved in the management and treatment plan of the patient. I reviewed note and agree with the documentation documented in this encounter Plan of Treatment Upcoming Encounters Date Type Department Care Team (Late st Contact Info) Description 03/15/2025 2:45 PM EDT Follow-Up [facility] at [address] [address] Jt Jasso MD [address] [place] [address] Scheduled Orders Name Type Priority Associated Diagnoses Order Schedule Sedimentation rate Lab Routine GCA (giant cell arteritis) (CMS/HCC) meterman systemic steroid user Immunosuppression Expected: 02/01/2025 (Approximate), Expires: 02/01/2026 Lipid panel Lab Routine GCA (giant cell arteritis) (CMS/HCC) longterm systemic steroid user Immunosuppression Expected: 02/01/2025 (Approximate), Expires: 02/01/2026 CBC Lab Routine GCA (giant cell arteritis) (CMS/HCC) meterman systemic steroid user Immunosuppression Expected: 02/01/2025 (Approximate), Expires: 02/01/2026 Comprehensive metabolic panel Lab Routine GCA (giant cell arteritis) (CMS/HCC) meterman systemic steroid user Immunosuppression Expected: 02/01/2025 (Approximate), Expires: 02/01/2026 DEXA bone density Imaging Routine GCA (giant cell arteritis) (CMS/HCC) longterm systemic steroid user Immunosuppression Expected: 02/01/2025, Expires: 02/01/2026 Vascular US ankle brachial index (LIZABETH) without exercise Vascular Ultrasound Routine Decreased dorsalis pedis pulse Expected: 02/01/2025 (Approximate), Expires: 02/01/2027 documented as of this encounter Visit Diagnoses Diagnosis GCA (giant cell arteritis) (CMS/HCC)- Primary Giant cell arteritis longterm systemic steroid user Immunosuppression Decreased dorsalis pedis pulse Other hyperlipidemia Other specified abnormal immunological findings in serum Encounter for screening for other viral diseases documented in this encounter Care Teams Die Inspector Relationship Specialty Start Date End Date Giovanna Graf NP [address] [place] [id number] PCP - General Family Medicine 10/21/23 documented as of this encounter
--- OUTSIDE RECORDS SUMMARY | 2025-02-07 10:28 | XMS_ITS | Encounter Summary ---
Author Organization [facility] Address [id number] [address] [place] [address] Care Team Providers Care Nut Packer Name Role Phone Giovanna Graf Primary Care Provid er Encounter Details Date Type Department Care Team (Late st Contact Info) Description 09/03/2024 Orders Only [facility] Hematology Oncology, A Department of [facility] [address] [facility] [address] [place] [id number] External, Scanning Provider Social History Tobacco Use Types Packs/Day Years [...] more drinks on one occasion? Never 09/23/2023 PHQ-2 Answer Date Recorded Total Score 0 09/23/2023 Childcare Answer Date Recorded Childcare Unknown 02/03/2019 Employment Answer Date Recorded Employment Unknown 02/03/2019 Hunger Screening Answer Date Recorded Within the past 12 months we worried whether our food would run out before we got money to buy more. Never True 02/05/2024 Within the past 12 months th e food we bought just didn't last and we didn't have money to get more. Never True 02/05/2024 Purpose - Life Answer Date Recorded Purpose and direction in life Unknown Comments Unknown Sex and Gender Information Value Date Recorded Sex Assigned at Not on file Legal Sex Female 11:28 AM EDT Gender Identity Not on file Sexual Orientation Not on file documented as of this encounter Plan of Treatment Upcoming Encounters Date Type Department Care Team (Late st Contact Info) Description 05/09/2025 10:45 AM EDT Office Visit Adelaida Faby [facility] - Medical Oncology [address] [place] [address] Kari Pablo APRN-[address], [place] [address] documented as of this encounter Goals Goal Patient Goal Type Associated Problems Recent Progress Patient-Stated? Author <enter goal here> General Yes Brynn Mackenzie, BOILERMAKER HELPER Note: Evaluation of progress towards goal: Home with dtr, self care documented as of this encounter Procedures Procedure Name Priority Date/Time Associated Diagnosis Comments MULTIPLE LABS Routine 09/03/2024 8:18 AM EST MULTIPLE LABS Routine 09/03/2024 7:57 AM EST MULTIPLE LABS Routine 09/03/2024 7:14 AM EST documented in this encounter Results * Multiple labs (09/03/2024 8:18 AM EST) us Scanning Provider External [facility] Final Result * Multiple labs (09/03/2024 7:57 AM EST) us Scanning Provider External [facility] Final Result * Multiple labs (09/03/2024 7:14 AM EST) us Scanning Provider External [facility] Final Result documented in this encounter Visit Diagnoses Not on filedocumented in this encounter Additional Health Concerns Assessment Noted Time PHQ-9 Depression Total Score: 0 09/23/19 9:39 AM EST documented as of this encounter Care Teams Nut Packer Relationship Specialty Start Date End Date Giovanna Graf APRN-[facility] [address] [place] [address] PCP - General Nurse Practitioner 10/10/23 documented as of this encounter
--- OUTSIDE RECORDS SUMMARY | 2025-02-07 10:28 | XMS_ITS | Clinical Summary ---
Author Organization [facility] Address [address] [place] [address] Care Team Providers Care Security Systems Administrator Name Role Phone Giovanna Graf NP Primary Care Provider [phone] Allergies Active Allergy Reactions Criticality Noted Date Comments Ciprofloxacin Nausea And Vomiting 01/27/2024 Penicillin Fever Medium 09/23/2023 Other reaction(s): Confusion Medications acetaminophen (Tylenol) 500 mg tablet Take 500 mg by mouth every 6 (six) hours if needed. Active tiZANidine (Zanaflex) 2 mg tablet Take 2 mg by mouth in the evening. 3 Active sulfamethoxazole-t rimethoprim (Bactrim DS) 800-160 mg tabletIndications: GCA (giant cell arteritis) (CMS/HCC),Other specified abnormal immunological findings in serum,care home systemic steroid user,Encounter for screening for other viral diseases,Other hyperlipidemia Take 1 tablet by mouth 3 (three) times a week. Three times per week 12 tablet 3 4 Active ferrous sulfate 325 (65 Fe) MG EC tablet Take 325 mg by mouth. 4 Active ferrous sulfate 325 (65 Fe) MG tablet Take 65 mg by mouth in the morning and at bedtime. Active fluticasone (Flonase) 50 mcg/actuation nasal spray 4 Active cyanocobalamin (Vitamin B-12) 250 mcg tablet Take 250 mcg by mouth in the morning. 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 90 tablet 3 5 10/06/19 26 Active tocilizumab (Actemra ACTPen) 162 mg/0.9 mL pen injectorIndication s:GCA (giant cell arteritis) (CMS/HCC) Inject 162 mg under the skin every 14 (fourteen) days. 1.8 mL 11 5 Active omeprazole (PriLOSEC) [address] capsule Take 20 mg by mouth before breakfast. Do not crush or chew. 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 360 tablet 3 5 02/02/20 26 Active predniSONE (Deltasone) 2.5 mg tabletIndications: GCA (giant cell arteritis) (CMS/HCC),care home systemic steroid user,Other hyperlipidemia,Oth er specified abnormal immunological findings in serum,Encounter for screening for other viral diseases Take 1 tablet (2.5 mg) by mouth in the morning. 90 tablet 3 4 02/02/20 25 Discontin ued(Reord er) Active Problems Problem Noted Date Diagnosed Date Decreased dorsalis pedis pulse 02/01/2025 Immunosuppression 02/01/2025 care home systemic steroid user 02/01/2025 Urge incontinence of urine 01/27/2024 Nocturia 01/27/2024 History of renal calculi 01/27/2024 History of cataract extraction 01/27/2024 GERD (gastroesophageal reflux disease) Eustachian tube dysfunction 01/27/2024 Normocytic anemia 11/06/2023 11/25/2023 Thrombocytosis 11/06/2023 11/25/2023 Giant cell arteritis 10/16/2023 10/21/2023 Vision blurred 09/23/2023 10/21/2023 Stroke-like symptoms 09/23/2023 10/21/2023 Encounters Date Type Department Care Team Description 02/01/2025 1:15 PM EDT Follow-Up [facility] at [address] [phone] Jt Jasso MD GCA (giant cell arteritis) (CMS/HCC) (Primary Dx); care home systemic steroid user; Immunosuppression; Decreased dorsalis pedis pulse; Other hyperlipidemia; Other specified abnormal immunological findings in serum; Encounter for screening for other viral diseases 11/23/2024 Refill [facility] at [address] [phone] Stacy Chandra MA GCA (giant cell arteritis) (CMS/HCC) (Primary Dx) 11/12/[address] [phone] Jt Jasso MD 11/11/[address] [phone] Jt Jasso MD from Last 3 Months Social History Tobacco Use Types Packs/Day Years [...] on file Sexual Orientation Not on file Last Filed Vital Signs Vital Sign Reading Time Taken Comments Blood Pressure 122/64 02/01/2025 1:17 PM EDT Pulse 76 10/06/2024 2:01 PM EST Temperature - - Respiratory Rate - - Oxygen Saturation 93% 10/06/2024 2:01 PM EST Inhaled Oxygen Concentration - - Weight 61.7 kg (136 lb) 02/01/2025 1:17 PM EDT Height 157.5 cm (5' 2 ) 10/06/2024 2:01 PM EST Body Mass Index 24.87 10/06/2024 2:01 PM EST Plan of Treatment Upcoming Encounters Date Type Department Care Team (Late st Contact Info) Description 03/15/2025 2:45 PM EDT Follow-Up [facility] [address] [place] [address] Jt Jasso MD [address] [place] [address] Health Maintenance Due Date Last Done Comments Medicare Annual Wellness (AWV) 1945 COVID-19 Vaccine (#1) 1951 Depression Screening 1958 Pneumococcal Vaccine: 50+ Ye ars (1 of 2 - PCV) 1965 Zoster Vaccines (1 of 2) 1965 Adult Tetanus 1968 Fall Risk Screening 2011 Influenza Vaccine (Season Ended) 2025 HIB Vaccines Aged Out No longer eligi ble based on patient's age to complete this topic HPV Vaccines Aged Out No longer eligi ble based on patient's age to complete this topic IPV Vaccines Aged Out No longer eligi ble based on patient's age to complete this topic Meningococcal B Vaccine Aged Out No l onger eligible based on patient's age to complete this topic Meningococcal Vaccine Aged Out No ricardo emmanuel eligible based on patient's age to complete this topic Rotavirus Vaccines Aged Out No longer eligible based on patient's age to complete this topic Insurance [facility] MEDICARE ADVANTAGE Care Teams Security Systems Administrator Relationship Specialty Start Date End Date Giovanna Graf NP [address] [place] [address] PCP - General Family Medicine 10/21/23
--- OUTSIDE RECORDS SUMMARY | 2025-02-07 10:28 | XMS_ITS | Encounter Summary ---
Author Organization [employer] Address [id number] [address] [place] [address] Care Team Providers Care Grain Sacker Name Role Phone Giovanna Graf APRN-SAMRA Primary Care Provid er Encounter Details Date Type Department Care Team (Late st Contact Info) Description 03/09/2024 Orders Only [facility] - Medical Oncology [address] [place] [phone] Ref Prov, [place] [address] Social History Tobacco Use Types Packs/Day Years [...] 10:45 AM EDT Office Visit Adelaida Faby [facility] - Medical Oncology [address] [place] [address] Kari Pablo APRN-SHIFT LEADER [address] [place] [address], [place] [address] documented as of this encounter Goals Goal Patient Goal Type Associated Problems Recent Progress Patient-Stated? Author <enter goal here> General Yes Brynn Mackenzie, TEST HOLE DRILLER Note: Evaluation of progress towards goal: Home with dtr, self care documented as of this encounter Procedures Procedure Name Priority Date/Time Associated Diagnosis Comments EXTERNAL LAB ORDERS / RESULTS Routine 03/09/2024 1:07 PM EDT documented in this encounter Results * External Lab Orders / Results (03/09/2024 1:07 PM EDT) us Not In System Ref Prov LAB ORDERABLES Final Res ult documented in this encounter Visit Diagnoses Not on filedocumented in this encounter Additional Health Concerns Assessment Noted Time PHQ-9 Depression Total Score: 0 09/23/19 24 9:39 AM EST documented as of this encounter Care Teams Grain Sacker Relationship Specialty Start Date End Date Giovanna Graf APRN-SAMRA [address] [place] [address] PCP - General Nurse Practitioner 10/10/23 documented as of this encounter
--- OUTSIDE RECORDS SUMMARY | 2025-02-07 10:28 | XMS_ITS | Referral Summary ---
Author Organization [facility] Address [address] [place] [address] Care Team Providers Care Court Officer Name Role Phone Giovanna Graf NP Primary Care Provider [phone] Encounters Date Type Department Care Team Description 02/01/2025 1:15 PM EDT Follow-Up [address] [phone] Jt Jasso MD GCA (giant cell arteritis) (CMS/HCC) (Primary Dx); care home systemic steroid user; Immunosuppression; Decreased dorsalis pedis pulse; Other hyperlipidemia; Other specified abnormal immunological findings in serum; Encounter for screening for other viral diseases 11/23/[address] [phone] Stacy Chandra MA GCA (giant cell arteritis) (CMS/HCC) (Primary Dx) 11/12/[address] [phone] Jt Jasso MD 11/11/[address] [phone] Jt Jasso MD from Last 3 Months Allergies Active Allergy Reactions Criticality Noted Date [...] arteritis) (CMS/HCC),Other specified abnormal immunological findings in serum,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,Encounter for screening for other [...] arteritis) (CMS/HCC),Other specified abnormal immunological findings in serum,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,Encounter for screening for other viral diseases,Other hyperlipidemia TAKE 1 TABLET (81 MG) BY MOUTH IN THE MORNING 90 tablet 3 4 07/26/20 25 Active multivitamin-iron- minerals-folic acid (Multivitamin 50 Plus) tabletIndications: GCA (giant cell arteritis) (CMS/HCC),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,Other hyperlipidemia,Enc ounter for screening [...] Decreased dorsalis pedis pulse 02/01/2025 Immunosuppression 02/01/2025 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 02/01/2025 Urge incontinence of urine 01/27/2024 Nocturia 01/27/2024 History of renal calculi 01/27/2024 History of cataract extraction 01/27/2024 GERD (gastroesophageal reflux disease) Eustachian tube dysfunction 01/27/2024 Normocytic anemia 11/06/2023 11/25/2023 Thrombocytosis 11/06/2023 11/25/2023 Giant cell arteritis 10/16/2023 10/21/2023 Vision blurred 09/23/2023 10/21/2023 Stroke-like symptoms 09/23/2023 10/21/2023 Social History Tobacco Use Types Packs/Day Years [...] Info) Description 03/15/2025 2:45 PM EDT Follow-Up [facility] [address] [place] [address] Jt Jasso MD [address] [place] [address] Insurance [facility] MEDICARE ADVANTAGE Care Teams Court Officer Relationship Specialty Start Date End Date Giovanna Graf NP [address] [place] [address] PCP - General Family Medicine 10/21/23
--- OUTSIDE RECORDS SUMMARY | 2025-02-07 10:28 | XMS_ITS | Encounter Summary ---
Demographics Address [address] [place] [address] Mobile Phone Home Phone Email Address Email Address Email Address [email or web address] OM Preferred Language Albanian Marital Status Taoist Affiliation Unknown Race White Ethnic Group Not or Lati no Author Organization [facility] Address [id number] [address] [place] [address] Care Team Providers Care Restorative Coordinator Name Role Phone Giovanna Graf Primary Care Provid er Encounter Details Date Type Department Care Team (Late st Contact Info) Description 02/10/2024 Orders Only [facility] [address] [place] [phone] Mouna Bautista MD [address] [address] Social History Tobacco Use Types Packs/Day Years [...] 05/09/2025 10:45 AM EDT Office Visit [facility]elaida L [facility] - Medical Oncology [address] [place] [phone] Kari Pablo APRN-MARINE ENGINE MECHANIC [address] [place] [address], [place] [address] documented as of this encounter Goals Goal Patient Goal Type Associated Problems Recent Progress Patient-Stated? Author <enter goal here> General Yes Brynn Mackenzie, UNDERGRADUATE INTERNSHIP Note: Evaluation of progress towards goal: Home with dtr, self care documented as of this encounter Procedures Procedure Name Priority Date/Time Associated Diagnosis Comments CT NECK SOFT TISSUE W WO CONT Routine 01/08/2024 9:29 AM EDT documented in this encounter Results * CT neck soft tissue with and without contrast (01/08/2024 9:29 AM EDT) Anatomical Region Laterality Modality Neuro, Neck, Neuro Covera N/A Comput ed Tomography us Mouna Bautista MD IMG CT ORDERABLES Final Resul t documented in this encounter Visit Diagnoses Not on filedocumented in this encounter Additional Health Concerns Assessment Noted Time PHQ-9 Depression Total Score: 0 09/23/19 24 9:39 AM EST documented as of this encounter Care Teams Restorative Coordinator Relationship Specialty Start Date End Date Giovanna Graf APRN-MYSQL DBA [address] [facility] [place] [address] PCP - General Nurse Practitioner 10/10/23 documented as of this encounter
--- OUTSIDE RECORDS SUMMARY | 2025-02-07 10:29 | XMS_ITS | Encounter Summary ---
Author Organization [employer] Address [id number] [address] [place] [address] Care Team Providers Care Bailer Tenders Supervisor Name Role Phone Giovanna Graf APRN-SAMRA Primary Care Provid er Encounter Details Date Type Department Care Team (Late st Contact Info) Description 02/07/2025 Orders Only [facility]elaida [facility] - Medical Oncology [address] [place] [phone] Roxie Saldivar, ASHIA Social History Tobacco Use Types Packs/Day Years [...] 10:45 AM EDT Office Visit Adelaida L [facility] - Medical Oncology [facility] [place] [address] Kari Pablo, DIVIDING MACHINE OPERATOR-[address], [place] [address] documented as of this encounter Goals Goal Patient Goal Type Associated Problems Recent Progress Patient-Stated? Author <enter goal here> General Yes Brynn Mackenzie, LIANE Note: Evaluation of progress towards goal: Home with dtr, self care documented as of this encounter Visit Diagnoses Not on filedocumented in this encounter Additional Health Concerns Assessment Noted Time PHQ-9 Depression Total Score: 0 09/23/19 24 9:39 AM EST documented as of this encounter Care Teams Bailer Tenders Supervisor Relationship Specialty Start Date End Date Giovanna Graf APRN-SAMRA [address] [place] [address] PCP - General Nurse Practitioner 10/10/23 documented as of this encounter
--- OUTSIDE RECORDS SUMMARY | 2025-02-07 10:29 | XMS_ITS | Clinical Summary ---
Author Organization [facility] Address [id number] [address] [place] [address] Care Team Providers Care Soil Technologist Name Role Phone Giovanna Graf Primary Care Provid er Allergies Active Allergy Reactions Criticality Noted Date Comments Penicillin Confusion,Fever Medium 09/23/2023 Medications acetaminophen (TYLENOL EXTRA STRENGTH) 500 mg tablet Take 1 tablet (500 mg total) by mouth every 6 (six) hours as needed for pain. Active ferrous sulfate 325 (65 FE) mg EC tablet Take 1 tablet (325 mg total) by mouth in the morning and 1 tablet (325 mg total) in the evening. Take with meals. 180 tablet 1 4 Active Additional Information Patient not taking.Reported on 01/24/2025 ACTEMRA 162 mg/0.9 mL injection Inject 0.9 mL (162 mg total) under the skin once a week. Active predniSONE (DELTASONE) 20 mg tablet Take 2.5 mg by mouth in the morning. Until 01/09/24 then going to 1/2 tablet a day. 4 Active aspirin 81 mg chewable tablet Chew 1 tablet (81 mg total) and swallow in the morning. Active sulfamethoxazol e-trimethoprim (BACTRIM DS) 800-160 mg per tablet Take 1 tablet by mouth. Three times a week Active cyanocobalamin 250 MCG tablet Take 1 tablet (250 mcg total) by mouth in the morning. Active fluticasone propionate (FLONASE) 50 mcg/actuation nasal spray Administer 2 sprays into each nostril in the morning. 4 Active multivitamin-mi nerals-lutein (MULTIVITAMIN 50 PLUS) tablet Take 1 tablet by mouth in the morning. 5 10/06/19 26 Active omeprazole (PriLOSEC) 10 mg capsule Take 2 capsules (20 mg total) by mouth in the morning. Active Active Problems Problem Noted Date Diagnosed Date Normocytic anemia 11/06/2023 Thrombocytosis 11/06/2023 Giant cell arteritis 10/16/2023 Vision blurred 09/23/2023 Stroke-like symptoms 09/23/2023 Encounters Date Type Department Care Team Description 02/07/2025 Orders Only [facility] - Medical Oncology [address] [place] [phone] Roxie Saldivar RN 01/24/2025 10:30 AM EDT Office Visit [facility] - Medical Oncology [address] [place] [phone] Kari Pablo, RENIA-RIVKA Iron deficiency (Primary Dx); Normocytic anemia; Thrombocytosis; Anemia, unspecified type 01/24/2025 Travel 12/27/2024 Travel from Last 3 Months Immunizations No known immunizations Social History Tobacco Use Types Packs/Day Years [...] Mass Index 25.27 01/24/2025 9:48 AM EDT Plan of Treatment Upcoming Encounters Date Type Department Care Team (Late st Contact Info) Description 05/09/2025 10:45 AM EDT Office Visit [facility]elaida Hobbs [facility] - Medical Oncology [address] [place] [address] Kari Pablo APRN-SLITTER AND CUTTER OPERATOR [address] [facility], [address] [place] [address] Health Maintenance Due Date Last Done Comments DTaP,Tdap and Td Vaccines (1 - Tdap) 1965 Zoster (Shingles) Vaccine (1 of 2) 1996 Fall Risk Screening 2011 Depression Screening 09/23/2024 09/23/2023 Influenza Vaccine 04/25/2025 Tobacco Screening 10/11/2025 10/11/2024 Goals Goal Patient Goal Type Associated Problems Recent Progress Patient-Stated? Author <enter goal here> General Yes Brynn Mackenzie, LIANE Note: Evaluation of progress towards goal: Home with dtr, self care Medical Devices Not on file Insurance [employer] MEDICARE Advance Directives Documents on File Type Date Recorded Patient Pain Management Physician Expl anation Durable Power of Wafer Polisher 10/03/2023 8:14 AM Durable Power of Wafer Polisher 09/23/2023 4:17 PM [facility] er of Wafer Polisher * Full Code (Latest Code Status on File) Date Activated Date Inactivated Comments 09/23/2023 12:33 AM 09/26/2023 7:44 PM Healthcare Agents on File Name Relationship Healthcare Agent [facility] Communication Mike David Son Health Care Agent Malinda Brito Daughter First Alternate Health Care Agent Care Teams Soil Technologist Relationship Specialty Start Date End Date Giovanna Graf APRN-NP [address] [place] [address] PCP - General Nurse Practitioner 10/10/23
--- OUTSIDE RECORDS SUMMARY | 2025-02-07 10:29 | XMS_ITS | Encounter Summary ---
Author Organization [facility] Address [id number] [address] [place] [address] Care Team Providers Care Drug Abuse Program Coordinator Name Role Phone Giovanna Garf Primary Care Provid er Encounter Details Date Type Department Care Team (Latest Contact Info) Description 01/24/2025 Travel Social History Tobacco Use Types Packs/Day Years [...] 10:45 AM EDT Office Visit Adelaida Hobbs [facility] - Medical Oncology [address] [place] [phone] Kari Pablo, REINA-MEETING PLANNER [address] [place] [address], [place] [address] documented as of this encounter Goals Goal Patient Goal Type Associated Problems Recent Progress Patient-Stated? Author <enter goal here> General Yes Brynn Mackenzie, ALLERGIST/IMMUNOLOGIST Note: Evaluation of progress towards goal: Home with dtr, self care documented as of this encounter Visit Diagnoses Not on filedocumented in this encounter Additional Health Concerns Assessment Noted Time PHQ-9 Depression Total Score: 0 09/23/19 24 9:39 AM EST documented as of this encounter Care Teams Drug Abuse Program Coordinator Relationship Specialty Start Date End Date Giovanna Graf APRN-NP [address] [place] [address] PCP - General Nurse Practitioner 10/10/23 documented as of this encounter
--- OUTSIDE RECORDS SUMMARY | 2025-02-07 10:29 | XMS_ITS | Encounter Summary ---
Author Organization [facility] Address [id number] [address] [place] [address] Care Team Providers Care General Manager Name Role Phone Giovanna Graf Primary Care Provid er Encounter Details Date Type Department Care Team (Late st Contact Info) Description 09/24/2023 Orders Only [facility] [address] [place] [phone] Transcribe, Orders Support User Pain (Primary Dx) Social History Tobacco Use Types Packs/Day Years [...] Employment Answer Date Recorded Employment Unknown 02/03/2019 Purpose - Life Answer Date Recorded Purpose [...] 05/09/2025 10:45 AM EDT Office Visit [facility] - Medical Oncology [address] [place] [address] Kari Pablo, APPLIANCE PAINTER AND REFINISHER-ADMINISTRATION PROFESSIONAL [address] [place] [address], [address] [id number] documented as of this encounter Goals Goal Patient Goal Type Associated Problems Recent Progress Patient-Stated? Author <enter goal here> General Yes Brynn Mackenzie, MASTER PRINTER Note: Evaluation of progress towards goal: Home with dtr, self care documented as of this encounter Results * CT angiogram carotid (09/22/2023 3:10 PM EST) us Scanning Provider External IMG CT ORDERABLES Fin al Result * CT angiogram head (09/22/2023 3:05 PM EST) us Scanning Provider External IMG CT ORDERABLES Fin al Result * CT brain without contrast (09/21/2023 1:40 PM EST) us Scanning Provider External IMG CT ORDERABLES Fin al Result * CT brain without contrast (09/11/2023 6:50 PM EST) us Scanning Provider External IMG CT ORDERABLES Fin al Result * X-ray abdomen ap and erect only (09/11/2023 6:50 PM EST) us Scanning Provider External IMG DIAGNOSTIC IMAGIN G ORDERABLES Final Result documented in this encounter Visit Diagnoses Diagnosis Pain- Primary Generalized pain documented in this encounter Additional Health Concerns Assessment Noted Time PHQ-9 Depression Total Score: 0 09/23/19 9:39 AM EST documented as of this encounter Care Teams General Manager Relationship Specialty Start Date End Date Giovanna Graf APRN-SAMRA [address] [place] [address] PCP - General Nurse Practitioner 10/10/23 documented as of this encounter
[2025-02-07 11:38] LABS: Percent Iron Saturation 48.4 %
[2025-02-08 04:07] LABS: Vitamin B12 508 pg/mL (232-1245)
== END 2025-02-07 10:24 | disposition home or self-care (01) ==
LOC: LAB 10:25
PROVIDERS: PCP Nurse Practitioner Family; Visit Provider Nurse Practitioner
DX: D64.9 Anemia, unspecified (principal); D75.839 Thrombocytosis, unspecified; E61.1 Iron deficiency; M31.6 Other giant cell arteritis; Z79.52 Long term (current) use of systemic steroids; D84.9 Immunodeficiency, unspecified
CPT/HCPCS: 36415; 80053; 80061; 82607; 82728; 83540; 83550; 85025; 85652

== ENCOUNTER 2025-02-15 11:01 | Outpatient (OUT) | payer MEDICARE, SELFPAY | END 2025-02-15 11:02 | disposition home or self-care (01) | LOC: RAD 11:01 | PROVIDERS: PCP Nurse Practitioner Family; Visit Provider Internal Medicine | DX: M31.6 Other giant cell arteritis (principal); Z79.52 Long term (current) use of systemic steroids; D84.9 Immunodeficiency, unspecified; M85.80 Other specified disorders of bone density and structure, unspecified site; M81.0 Age-related osteoporosis without current pathological fracture | CPT/HCPCS: 77080 ==

== ENCOUNTER 2025-02-28 12:15 | Outpatient (OUT) | payer MEDICARE, SELFPAY ==
--- OUTSIDE RECORDS SUMMARY | 2025-02-01 13:10 | XMS_ITS ---
Author Name Auto Generated Organization [place] Care Team Providers Care Rn First Assistant Name Role Phone JT JASSO I Attending Unavailable JT JASSO I Attending Unavailable JT JASSO I Attending Unavailable MYRA COTA Attending Unavailable RENE JENKINS Referring Unavailable RENE JENKINS Primary Care Unavailable MYRA COTA Attending Unavailable RENE JENKINS Referring Unavailable RENE JENKINS Primary Care Unavailable MYRA COTA Attending Unavailable RENE JENKINS Referring Unavailable RENE JENKINS Primary Care Unavailable PROBLEMS DATE TYPE CONDITION / CODE ATTENDING STATUS [facility] 02/01/2025 Admitting Diagnosis alf (current) use of systemic steroids / Z79.52(ICD-10) JT JASSO I Active [facility] 02/01/2025 Admitting Diagnosis Immunodeficiency, 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(ICD-10) JT JASSO I Active [facility] 02/01/2025 Admitting Diagnosis Other specified symptoms and signs involving the circulatory and respiratory systems / R09.89(ICD-10) JT JASSO I Active [facility] 10/16/2023 Unknown Other giant cell arteritis / M31.6(ICD-10) MYRA COTA [facility] 09/23/2023 Unknown Other visual disturbances / H53.8(ICD-10) MYRA COTA [facility] 10/11/2024 Unknown Iron deficiency / E61.1(ICD-10) MYRA COTA [facility] 05/05/2024 Admitting Diagnosis Other giant cell arteritis / M31.6(ICD-10) JT JASSO I Active [facility] 05/05/2024 Admitting Diagnosis Other hyperlipidemia / E78.49(ICD-10) JT JASSO I Active [facility] 05/05/2024 Admitting Diagnosis Other specified abnormal immunological findings in serum / R76.8(ICD-10) JT JASSO I Active [facility] 05/05/2024 Admitting Diagnosis Encounter for screening for other viral diseases / Z11.59(ICD-10) JT JASSO I Active [facility] 11/06/2023 Unknown Thrombocytosis, unspecified / D75.839(ICD-10) MYRA COTA Active [facility] 11/06/2023 Unknown Anemia, unspecif ied / D64.9(ICD-10) MYRA COTA [facility] 03/08/2024 Unknown Follow-up / FREETEXT(AOF) MYRA COTA [facility] PROCEDURES No Procedure Records Found RESULTS 36 Observed: 02/14/2025 2:07 PM Status: COMPLETED Source: [facility] Spoke with Deya and erin jimenez that they labs had not be located while I was off. I did call [facility] and lab results were sent immediately after my request. Daughter informed that Dr. Jasso will review and if any earlier follow up is needed that I would call them back. 36 Observed: 02/14/2025 9:33 AM Status: COMPLETED Source: [facility] Patient daughter would like a return dalia back,. She is wanting to know if lab results were found. Executive Advisor confirmed call back number. FOLLOW-UP Observed: 02/01/2025 1:15 PM Status: COMPLETED Source: [facility] [id number] Jose David [birth year] F Date Provider Department Center 02/01/2025 215-JT JASSO I [facility] No family history on file Level of Service:25867 [place] OFFICE/OUTPATIENT ESTABLISHED MOD MDM 30 MIN (GC) Reason for Visit and Comments: Follow-up [517771] - GCA. Recent increase in Headaches started approximatly 2 weeks. Improvement with prednisone PROGRESS Observed: 02/01/2025 1:15 PM Status: COMPLETED Source: [facility] Attestation signed by Jt Jasso MD at 02/01/2025 1:56 PM GC: I saw this patient. I personally performed the critical/braswell portions that determines the level of service. I was directly involved in the management and treatment plan of the patient. I reviewed note and agree with the documentation Subjective Patient ID: Jose David is a 79 y.o. female who presents for follow up. HPI She was admitted to [facility] end of August 2023 due to bilateral vision loss. She underwent bilateral TA biopsy, which confirmed GCA. Her head hurt across the front and sometimes behind the eyes so we increased prednisone from 2.5 mg daily to 10 mg daily on 01/25/25. As of 02/01/25, she thinks this is helping a bit. The headache is mostly in the morning. She hasn't had any other GCA symptoms. Review of Systems Constitutional: Positive for activity [...] for agitation, behavioral problems and confusion. Objective There were no vitals taken for this visit. Physical Exam Vitals and nursing note reviewed. Constitutional: General: She is not in acute distress. Appearance: She is normal weight. She is not ill-appearing, toxic-appearing or diaphoretic. [...] No cranial nerve deficit. Motor: No weakness. Comments: Has weak dorsalis pedis pulses Psychiatric: Mood and Affect: Mood normal. Behavior: Behavior normal. Assessment/Plan Giant cell arteritis - Biopsy proven both sides 08/2023 - Likely her vision loss is not reversible - Bilateral vision loss. She underwent bilateral TA biopsy, which confirmed GCA. She was using prednisone 60 mg daily and Bactrim - ESR is a good marker for her to evaluate disease activity - Continue prednisone 10 mg daily and Actemra subcutaneous injections every 2 weeks as of 02/01/25 - Obtain ESR, lipid panel, CBC, CMP on 02/01/25 2. Steroid use - We will need DEXA Scan (ordered on 02/01/25) and anti resporptive therapy 3. Actemra use - We discussed the risk of infection and need for lab testing every 3 months to monitor for toxicity 4. Weak dorsalis pedis pulse - Obtain ankle/brachial index RTC in [address] Brito and Dr Jasso 36 Observed: 01/25/2025 8:39 AM Status: COMPLETED Source: [facility] LVM informing patient's daug hter. 36 Observed: 01/24/2025 9:39 AM Status: COMPLETED Source: [facility] Spoke with patient's taylor aguiar this morning and she is stable right now with slightly improved symptoms. She is currently taking Prednisone 2.5mg daily , should she come into office or change medications? Please advise. Thanks 36 Observed: 12/06/2024 1:35 PM Status: COMPLETED Source: [facility] Spoke with patient's taylor aguiar and she is requesting training on pen device. [facility] performed training in the past. Given phone number for pharmacy. REFILL Observed: 11/23/2024 12:00 AM Status: COMPLETED Source: [facility] [id number] Jose Davdi [birth year] Provider Department Center 11/23/2024 Mehnaz-LINDSAY TIERNEY [facility] R[facility] No family history on file Reason for Visit and Comments: Med Refill [[id number]] 36 Observed: 11/15/2024 11:19 AM Status: COMPLETED Source: [facility] Informed CBC, ESR , Albumin and globulin level received from [place] 36 Observed: 11/15/2024 10:01 AM Status: COMPLETED Source: [facility] Spoke with daughteraditya that we had not received any lab results on the patient. Daughter states that they were completed earlier this month at [facility]. LVM at [place] requesting results of lab be faxed to our office [facility]. Fax number and contact number left on voicemail with med records. Awaiting results 36 Observed: 11/15/2024 9:50 AM Status: COMPLETED Source: [facility] LVM again returning daughter 's call regarding Lab results. 36 Observed: 11/12/2024 7:45 AM Status: COMPLETED Source: [facility] Voicemail, patient's Bharti segovia, would like a callback at [phone] to discuss lab results TELEPHONE Observed: 11/12/2024 12:00 AM Status: COMPLETED Source: [facility] [id number] Jose David 04/25 [facility] Provider Department Center 11/12/2024 JT CROOK I [facility] No family history on file 36 Observed: 11/11/2024 1:23 PM Status: COMPLETED Source: [facility] LVM returning call. I do not have any recent lab results in the patient's chart. 36 Observed: 11/11/2024 11:46 AM Status: COMPLETED Source: [facility] Patient daughter called abou t lab results. 36 Observed: 11/02/2024 10:39 AM Status: COMPLETED Source: [facility] Spoke with patient's taylor r. The orders were not faxed to [facility] last week. I refaxed the standing orders and mailed hard copies to patient. 29 Observed: 11/02/2024 10:24 AM Status: COMPLETED Source: [facility] Addended by: LINDSAY TIERNEY n: 11/02/2024 10:24 AM Modules accepted: Orders 36 Observed: 11/02/2024 10:21 AM Status: COMPLETED Source: [facility] Spoke with patient's daisabelae r and they stated that [facility] did not receive. I will fax again and mail hard copies to patient. 36 Observed: 11/02/2024 10:13 AM Status: COMPLETED Source: [facility] The patient daught called st ating they would like to speak with the MA to discuss the shot the patient receives every 14 days is not in the chart as well as lab apers are needing to be faxed over to [facility] because they have not been received. 36 Observed: 10/28/2024 11:29 AM Status: COMPLETED Source: [facility] Printed patient labs and fax them to the fax number provided. ORDERS ONLY Observed: 10/28/2024 12:00 AM Status: COMPLETED Source: [facility] [id number] Jose David [birth year] F Date Provider Department [place] 10/28/2024 215JT BOUDREAUX I [facility] No family history on file 36 Observed: 10/25/2024 10:59 AM Status: COMPLETED Source: [facility] PT daughter called in reques ting labs to be sent to [facility]. Fax number provided is [phone]. Daughter stated that she wanted to know if she can have a standard order sent over from now on since these labs are required every three month. TELEPHONE Observed: 10/25/2024 12:00 AM Status: COMPLETED Source: [facility] [id number] Jose David [birth year] Date Provider Department Center 10/25/2024 Juan FJT BOUDREAUX I [facility] No family history on file FOLLOW-UP Observed: 10/06/2024 2:00 PM Status: COMPLETED Source: [facility] [id number] Jose David [birth year] Date Provider Department [place] 10/06/2024 Juan FJT BOUDREAUX I [facility] No family history on file Level of Service:58909 [place] OFFICE/OUTPATIENT ESTABLISHED MOD MDM 30 MIN PROGRESS Observed: 10/06/2024 2:00 PM Status: COMPLETED Source: [facility] Subjective Patient ID: Jose David is a 79 y.o. female who presents for No chief complaint on file.. HPI She was admitted to [facility] end of August 2023 due to [...] every 3 months to monitor for toxicity. 36 Observed: 08/13/2024 3:37 PM Status: COMPLETED Source: [facility] Patients daughter contacted office requesting patient lab orders be faxed to [facility]. Faxed orders to number on their website, . Mailed copies of labs to patient as well. FOLLOW-UP Observed: 05/05/2024 1:45 PM Status: COMPLETED Source: [facility] [id number] Jose David F Date Provider Department Center 05/05/2024 215-JT JASSO I [facility] No family history on file Level of Service:90411 [place] OFFICE/OUTPATIENT ESTABLISHED LOW [facility] 20 MIN Reason for Visit and Comments: Follow-up [[id number]] - 1 headache a few weeks ago. Increased itching for a few months PROGRESS Observed: 05/05/2024 1:45 PM Status: COMPLETED Source: [facility] Subjective Patient ID: Jose David is a 78 y.o. female who presents for Follow-up (1 headache a few weeks ago. Increased itching for a few months ). HPI She was admitted to [facility] end of August 2023 due to [...] every 3 months to monitor for toxicity. ALLERGIES DATE TYPE / CODE NAME / CODE REACTION SEVERITY SOURCE 01/27/2024 DRUG INGREDI/293595 003(SNOMED CT) CIPROFLOXACIN (Inactive) Nausea And Vomiting [facility] 09/23/2023 DRUG INGREDI/183229 003(SNOMED CT) PENICILLIN Confusion [facility] 09/23/2023 DRUG INGREDI/221154 003(SNOMED CT) PENICILLIN Fever Medium [facility] 09/23/2023 DRUG INGREDI~NON-CB ORD/[id number]( SNOMED CT) PENICILLIN Confusion~Fever [facility] ENCOUNTERS ADMIT/DISCHARGE ACCOUNT NUMBER ADMITTING ENCOUNTER CLASS LOCATION SOURCE 02/01/2025/ 5 [id number] Ambulatory Building:[facility] 01/24/2025/ 5 [id number] Ambulatory Building:[facility] 10/11/2024/ 5 [id number] Ambulatory Building:[facility] 10/06/2024/ 5 [id number] Ambulatory Building:[facility] 05/05/2024/ 4 [id number] Ambulatory Building:[facility] 03/08/2024/ 4 [id number] Ambulatory Building:[facility] PAYERS ENCOUNTER GUARANTOR PAYER SUBSCRIBER SOURCE 02/01/2025 Primary Insuranc e:AARP MEDICARE ADVANTAGEPolicy Number: [id number] Date:2024-08-25 JOSE COLÓNB: [id number] [place] [address] [facility] 01/24/2025 JOSE COLÓNB: [place] [address]Deq: () Primary Insurance:[employer]HC MEDICARE ADVANTAGE OPolicy Number: [id number] Date:2023-08-25 JOSE COLÓNB: [id number] [place], [place] [address]Xxh: () () [facility] 10/11/2024 JOSE COLÓNB: [place] [address]Klg: (HP) Primary Insurance:[employer]HC MEDICARE ADVANTAGE HMOPolicy Number: [id number] Date:2023-08-25 JOSE COLÓNB: [id number] [place], [place] [address]Bnd: (HP) () [facility] 10/06/2024 Primary Insurance:[facility] MEDICAREPolicy Number: [id number] Date:2023-08-25 JOSE COLÓNB: [id number] [place] [address] [facility] 05/05/2024 Primary Insurance:[facility] MEDICAREPolicy Number: [id number] Date:2023-08-25 JOSE COLÓNB: [id number] [place] [address] [facility] 03/08/2024 JOSE COLÓNB: [place] [address]Xiz: () Primary Insurance:[facility] MEDICARE ADVANTAGE [facility]: [id number] Date:2023-08-25 JOSE MCNEAL: [id number] [place], [place] [address]Rdp: () () [facility]
--- OUTSIDE RECORDS SUMMARY | 2025-02-28 12:18 | XMS_ITS | Encounter Summary ---
Author Organization [employer] Address [id number] [address] [place] [address] Care Team Providers Care Piercer Operator Name Role Phone Giovanna Graf APRN-SAMRA Primary Care Provid er Encounter Details Date Type Department Care Team (Late st Contact Info) Description 03/09/2024 Orders Only [facility] - Medical Oncology [address] [place] [phone] Ref Prov, [place] [address] Social History Tobacco Use Types Packs/Day Years [...] AM EDT Office Visit Adelaida Faby [facility] - Medical Oncology [address] [place] [address] Kari Pablo APRN-CORRECTIONAL TREATMENT SPECIALIST [address] [place] [address], [place] [address] documented as of this encounter Goals Goal Patient Goal Type Associated Problems Recent Progress Patient-Stated? Author <enter goal here> General Yes Brynn Mackenzie, SLIME PLANT OPERATOR HELPER Note: Evaluation of progress towards goal: [...] documented as of this encounter Care Teams Piercer Operator Relationship Specialty Start Date End Date Giovanna Graf APRN-SAMRA [address] [place] [address] PCP - General Nurse Practitioner 10/10/23 documented as of this encounter
--- OUTSIDE RECORDS SUMMARY | 2025-02-28 12:18 | XMS_ITS | Encounter Summary ---
Author Organization [employer] Address [id number] [address] [place] [address] Care Team Providers Care Employment Legal Assistant Name Role Phone Giovanna Graf APRN-SAMRA Primary Care Provid er Encounter Details Date Type Department Care Team (Late st Contact Info) Description 02/07/2025 Orders Only Adelaida [facility] - Medical Oncology [address] [place] [phone] Roxie Saldivar, ASHIA Social History Tobacco Use [...] 10:45 AM EDT Office Visit Adelaida L [facility] - Medical Oncology [facility] [place] [address] Kari Pablo, CONCRETE BATCHING PLANT OPERATOR-[address], [place] [address] documented as of this encounter Goals Goal [...] documented as of this encounter Care Teams Employment Legal Assistant Relationship Specialty Start Date End Date Giovanna Graf APRN-SAMRA [address] [place] [address] PCP - General Nurse Practitioner 10/10/23 documented as of this encounter
--- OUTSIDE RECORDS SUMMARY | 2025-02-28 12:18 | XMS_ITS | Encounter Summary ---
Author Organization [facility] Address [facility] [id number] [address] [place] [address] Care Team Providers Care Central Office Frame Wirer Name Role Phone Giovanna Graf Primary Care Provid er Encounter Details Date Type Department Care Team (Late st Contact Info) Description 09/24/2023 Orders Only [facility] [employer] [address] [place] [phone] Transcribe, Orders Support User Pain (Primary [...] [facility] - Medical Oncology [address] [place] [address] Kari Pablo, BRICK GRADER-HITCHER [address] [place] [address], [address] [id number] documented as of this encounter Goals Goal Patient Goal Type Associated Problems Recent Progress Patient-Stated? Author <enter goal here> General Yes Brynn Mackenzie, BATTALION FIRE CHIEF Note: Evaluation of progress towards goal: Home [...] documented as of this encounter Care Teams Central Office Frame Wirer Relationship Specialty Start Date End Date Giovanna Graf APRN-SAMRA [address] [place] [address] PCP - General Nurse Practitioner 10/10/23 documented as of this encounter
--- OUTSIDE RECORDS SUMMARY | 2025-02-28 12:18 | XMS_ITS | Clinical Summary ---
Author Organization [employer] Address [id number] [address] [place] [address] Care Team Providers Care Psych Specialist Name Role Phone Giovanna Graf Primary Care [...] Department Care Team Description 02/07/2025 Orders Only [facility] - Medical Oncology [address] [place] [phone] Roxie Saldivar RN 01/24/2025 10:30 AM EDT Office Visit Adelaida [facility] - Medical Oncology [address] [place] [phone] Kari Pablo, REINA-RIVKA Iron deficiency (Primary Dx); Normocytic anemia; Thrombocytosis; [...] [facility] - Medical Oncology [address] [place] [address] Kari Pablo APRN-ORTHOPEDIC NURSE [address] [facility], [address] [place] [address] Health Maintenance Due Date Last [...] Documents on File Type Date Recorded Patient Open Soaper Tender Expl anation Durable Power of Information Technology Internship 10/03/2023 8:14 AM Durable Power of Information Technology Internship 09/23/2023 4:17 PM [facility] er of Information Technology Internship * Full Code (Latest Code Status on File) Date Activated Date Inactivated Comments 09/23/2023 12:33 AM 09/26/2023 7:44 PM Healthcare Agents on File Name Relationship Healthcare Agent [facility] Communication Mike David Son Health Care Agent Malinda Brito Daughter First Alternate Health Care Agent Care Teams Psych Specialist Relationship Specialty Start Date End Date Giovanna Graf APRN-NP [address] [place] [address] PCP - General Nurse Practitioner 10/10/23
--- OUTSIDE RECORDS SUMMARY | 2025-02-28 12:18 | XMS_ITS | Clinical Summary ---
Author Organization [facility] Address [address] [place] [address] Care Team Providers Care Administrative Assistant Data Entry Name Role Phone Giovanna Graf NP Primary Care Provider [phone] Allergies Active Allergy Reactions Criticality Noted Date [...] arteritis) (CMS/HCC),Other specified abnormal immunological findings in serum,manager intermediate systemic steroid user,Encounter for screening for other [...] arteritis) (CMS/HCC),Other specified abnormal immunological findings in serum,group home systemic steroid user,Encounter for screening for other viral diseases,Other hyperlipidemia TAKE 1 TABLET (81 MG) BY MOUTH IN THE MORNING 90 tablet 3 4 07/26/20 25 Active multivitamin-iron- minerals-folic acid (Multivitamin 50 Plus) tabletIndications: GCA (giant cell arteritis) (CMS/HCC),manager intermediate systemic steroid user,Other hyperlipidemia,Enc ounter for screening [...] 2.5 mg tabletIndications: GCA (giant cell arteritis) (CMS/HCC),manager intermediate systemic steroid user,Other hyperlipidemia,Oth er specified abnormal immunological findings in serum,Encounter for screening for other viral diseases Take 4 tablets (10 mg) by mouth in the morning. 360 tablet 3 5 02/02/20 26 Active predniSONE (Deltasone) 2.5 mg tabletIndications: GCA (giant cell arteritis) (CMS/HCC),manager intermediate systemic steroid user,Other hyperlipidemia,Oth er specified abnormal immunological findings in serum,Encounter for screening for other viral diseases Take 1 tablet (2.5 mg) by mouth in the morning. 90 tablet 3 4 02/02/20 25 Discontin ued(Reord er) Active Problems Problem Noted Date Diagnosed Date Decreased dorsalis pedis pulse 02/01/2025 Immunosuppression 02/01/2025 manager intermediate systemic steroid user 02/01/2025 Urge incontinence of urine 01/27/2024 Nocturia 01/27/2024 History of renal calculi 01/27/2024 History of cataract extraction 01/27/2024 GERD (gastroesophageal reflux disease) Eustachian tube dysfunction 01/27/2024 Normocytic anemia 11/06/2023 11/25/2023 Thrombocytosis 11/06/2023 11/25/2023 Giant cell arteritis 10/16/2023 10/21/2023 Vision blurred 09/23/2023 10/21/2023 Stroke-like symptoms 09/23/2023 10/21/2023 Encounters Date Type Department Care Team Description 02/14/2025 Telephone [facility] at [address] [address] Jt Jasso MD 02/01/2025 1:15 PM EDT Follow-Up [address] [address] Jt Jasso MD GCA (giant cell arteritis) (CMS/HCC) (Primary Dx); manager intermediate systemic steroid user; Immunosuppression; Decreased dorsalis pedis pulse; Other hyperlipidemia; Other specified abnormal immunological findings in serum; Encounter for screening for other viral diseases from Last 3 Months Social History Tobacco [...] Info) Description 03/15/2025 2:45 PM EDT Follow-Up [facility] at [facility] [address] [place] [address] Jt Jasso MD [address] [place] [address] Health Maintenance Due Date Last Done Comments Medicare Annual Wellness (AWV) 1945 COVID-19 Vaccine (#1) 1951 Depression Screening 1958 Pneumococcal Vaccine: 50+ Ye ars (1 of 2 - PCV) 1965 Zoster Vaccines (1 of 2) 1965 Adult Tetanus 1968 Fall Risk Screening 2011 Influenza Vaccine (#1) 2025 HIB Vaccines Aged Out No longer [...] patient's age to complete this topic Insurance [facility] MEDICARE ADVANTAGE Care Teams Administrative Assistant Data Entry Relationship Specialty Start Date End Date Giovanna Graf NP [address] [place] [address] PCP - General Family Medicine 10/21/23
--- OUTSIDE RECORDS SUMMARY | 2025-02-28 12:18 | XMS_ITS | Encounter Summary ---
Author Organization [facility] Address [id number] [address] [place] [address] Care Team Providers Care Tail Board Man Name Role Phone Giovanna Graf Primary Care Provid er Encounter Details Date Type Department Care Team (Late st Contact Info) Description 09/03/2024 Orders Only [facility] Hematology Oncology, A Department of [facility] [address] [facility] [address] [place] [phone] External, Scanning Provider Social History Tobacco Use [...] 10:45 AM EDT Office Visit Adelaida [facility] - Medical Oncology [address] [place] [address] Kari Pablo APRN-[address], [place] [address] documented as of this encounter Goals Goal Patient Goal Type Associated Problems Recent Progress Patient-Stated? Author <enter goal here> General Yes Brynn Mackenzie, REHAB DEPARTMENT MANAGER Note: Evaluation of progress towards goal: Home with dtr, self care documented as of this encounter Procedures Procedure Name Priority Date/Time Associated Diagnosis Comments MULTIPLE LABS Routine 09/03/2024 8:18 AM EST MULTIPLE LABS Routine 09/03/2024 7:57 AM EST MULTIPLE LABS Routine 09/03/2024 7:14 AM EST documented in this encounter Results * Multiple labs (09/03/2024 8:18 AM EST) us Scanning Provider External PA IMAGING Final Result * Multiple labs (09/03/2024 7:57 AM EST) us Scanning Provider External PA IMAGING Final Result * Multiple labs (09/03/2024 7:14 AM EST) us Scanning Provider External PA IMAGING Final Result documented in this encounter Visit Diagnoses Not on filedocumented in this encounter Additional Health Concerns Assessment Noted Time PHQ-9 Depression Total Score: 0 09/23/19 9:39 AM EST documented as of this encounter Care Teams Tail Board Man Relationship Specialty Start Date End Date Giovanna Graf APRN-SAMRA [address] [place] [address] PCP - General Nurse Practitioner 10/10/23 documented as of this encounter
--- OUTSIDE RECORDS SUMMARY | 2025-02-28 12:18 | XMS_ITS | Encounter Summary ---
Author Organization [facility] Address [address] [place] [address] Care Team Providers Care Bracelet Form Coverer Name Role Phone Giovanna Grfa NP Primary Care Provider [phone] Encounter Details Date Type Department Care Team (Late st Contact Info) Description 02/14/2025 Telephone [facility] at [facility] [address] [place] [phone] Jt Jasso MD [address] [place] [address] Social History Tobacco Use Types Packs/Day Years Used Date Smoking Tobacco: Former Cigarettes Smokeless Tobacco: Former Alcohol Use Standard Drinks/Week Comments Not Currently 0 (1 standard drink = 0.6 oz pur e alcohol) [place] Safety & Environment Answer Date Rec orded [...] on file documented as of this encounter Miscellaneous Notes * Telephone Encounter - Stacy Chandra MA - 02/14/2025 2:07 PM EDT Spoke with Deya and apologized that they labs had not be located while I was off. I did call [facility] and lab results were sent immediately after my request. Daughter informed that Dr. Jasso will review and if any earlier follow up is needed that I would call them back. * Telephone Encounter - Venessa Hernandez - 02/14/2025 9:33 AM EDT Patient daughter would like a return dalia back,. She is wanting to know if lab results were found. Diplomatic Interpreter confirmed call back number. documented in this encounter Plan of Treatment Upcoming Encounters Date Type Department Care Team (Late st Contact Info) Description 03/15/2025 2:45 PM EDT Follow-Up [facility] at [facility] Rheumatology [address] [place] [phone] Jt Jasso MD [address] [place] [address] documented as of this encounter Visit Diagnoses Not on filedocumented in this encounter Care Teams Bracelet Form Coverer Relationship Specialty Start Date End Date Giovanna Graf NP [facility] [place] [address] PCP - General Family Medicine 10/21/23 documented as of this encounter
--- NOTE | 2025-02-28 13:00 | CA_ITS ---
[facility] Test Date: 2025-02-28 Pat Name: JOSE DALAL Department: Room: - Gender: Female Medical Biller/Coder: : 1945 Requested By: [id number] Order Number: [id number] Reading MD: DOC SINHA M.D. Interpretive Statements Summary of the findings: Right leg: LIZABETH= 1.08; TBI= 0.95. Doppler waveforms demonstrate biphasic flow at the posterior tibial and dorsalis pedis arteries. Left leg: LIZABETH= 1.23; TBI= 0.51. Doppler waveforms demonstrate biphasic flow at the posterior tibial and dorsalis pedis arteries. Pulse volume recordings: PVRs at the ankle levels show normal waveforms. Conclusion: Right and left ankle-brachial indices are suggestive of normal overall arterial flow at rest. Toe-brachial indices are suggestive of left sided PAD. The study shows evidence of possible PAD with normal overall arterial flow at rest. Electronically Signed On 02-28-2025 20:48:09 EDT by DOC SINHA M.D.
== END 2025-02-28 12:16 | disposition home or self-care (01) ==
LOC: CARD 12:16
PROVIDERS: PCP Nurse Practitioner Family; Visit Provider Internal Medicine
DX: R09.89 Other specified symptoms and signs involving the circulatory and respiratory systems (principal)
CPT/HCPCS: 93922

== ENCOUNTER 2025-06-02 09:23 | Outpatient (OUT) | payer MEDICARE, SELFPAY ==
--- OUTSIDE RECORDS SUMMARY | 2025-05-23 06:21 | XMS_ITS | Continuity of Care Document ---
Author Organization [facility] Address [address] [place] [address] Phone Care Team Providers Care Mink Slicer Name Role Phone Giovanna Graf APRN Primary Care Provider Giovanna Graf APRN Attending Provider Care Teams Patient Care Team Team Status: Active Member Role Status Dates Giovanna Graf APRN CHART CALCULATOR-C Primary Care Provider Active Visit Care Team Team Status: Inactive Member Role Status Dates Giovanna Graf APRN CHART CALCULATOR-C Primary Care Provider Active Start: April 262024 End: May 17, 2025 Giovanna Graf APRN CHART CALCULATOR-C Attending Provider Active Start: April End: May 17, 2025 Patient Care Team Team Status: Inactive Member Role Status Dates Giovanna Graf APRN CHART CALCULATOR-C Primary Care Provider Active Start: April 262024 End: May 23, 2025 Giovanna Graf APRN CHART CALCULATOR-C Attending Provider Active Start: April End: May 23, 2025 Chief Complaint and Reason for Visit Chief Complaint Admit Date Swollen Ankles May 17, 2025 1:04pm 1 week f/u May 23, 2025 9:33am Reason for Visit Admit Date Bilateral lower extremity edema Septembe r 2024 1:04pm At high risk for falls May 23, 2 025 9:33am GERD (gastroesophageal reflux disease) S eptember 2024 9:33am History of cataract extraction with lens replacement May 23, 2025 9:33am Medicare annual wellness visit, subseque nt May 23, 2025 9:33am Right knee pain May 23, 2025 9:33am Temporal arteritis May 23, 2025 9:33am Vision loss, bilateral May 23, 025 9:33am Reason for Referral Referring Provider Name Referring Provider Address Referring Provider Phone Referral Date Requested Appointment Date Referral Reason Giovanna Graf [address] [address] [place] [address] Work Phone: May 23, 2025 M25.561 - Pain in right knee April M25.561 - Pain in right knee Allergies, Adverse Reactions, Alerts Allergen Type Severity Reaction Last Updated Verified Status Penicillins Allergy Unknown Confusion May 23, 2025 9:34a m Yes Active Social History Smoking Status Status Start Date End Date Date of Observa tion Ex-smoker (finding) January 10:30am Observation Status Observation Response Date of Response Legal Sex Female (finding) Sex Assigned At Female 1945 Problems Active Problems Medical Problem Onset Date Status Bilateral lower extremity edema Unknown Active Medicare annual wellness visit, subsequent Unkno wn Active Eustachian tube dysfunction Unknown Acti ve Vision loss, bilateral Unknown Active Muscle spasm Unknown Active Urinary frequency Unknown Active At high risk for falls Unknown Active Acute effusion of left ear Unknown Activ e Temporal arteritis Unknown Active History of cataract extraction with lens replace ment Unknown Active Right knee pain Unknown Active Neck pain Unknown Active Left otitis media Unknown Active GERD (gastroesophageal reflux disease) Unknown Active Hospital discharge follow-up Unknown Act hasrhil Dry skin dermatitis Unknown Active Medications Medication Status Dose Units Route Directions Qty Days St art Date Stop Date End Date Instructions Adherence Fluticasone Propionate 50 mcg/actuati on spray,suspe nsion Active 0 .ROUTE .COMPLEX 48 January 23, 2024 8:38am USE 1 SPRAY IN EACH NOSTRIL TWICE A DAY Complies with drug therapy Ciprofloxac in Hcl 500 mg tablet Discont inued 500 MG PO Twice daily 14 7 2017 12:00a m 2017 1:00a m 2017 1:02a m Oxybutynin Chloride 5 mg tablet Discont inued 5 MG PO Twice daily 30 2017 12:00a m Febru lisa 2023 12:13 pm Cyanocobala min (Vitamin B-12) 1,000 mcg capsule Active 1000 MCG PO Daily 2023 1:00am Complies with drug therapy Prednisone 20 mg tablet Discont inued 60 MG PO Daily 2023 1:00am December 29, 2023 9:30a m Sulfamethox azole-Trime thoprim (Bactrim Ds) 800-160 mg tablet Discont inued 1 TAB PO Three times daily 2023 1:00am [facility] 2023 10:48 am Aspirin 81 mg tablet,jennie yed release (DR/EC) Active 81 MG PO Daily 2023 1:00am Complies with drug therapy Acetaminoph en 500 mg capsule Active 500 MG PO Every 6 hours as needed 2023 1:00am Complies with drug therapy Prednisone 20 mg tablet Discont inued 20 MG PO Daily December 29, 2023 9:29am [facility] 2023 11:02 am Prednisone 2.5 mg tablet Discont inued 5 MG PO Daily April 13, 2024 12:00a m February 15, 2025 10:37 am Prednisone 2.5 mg tablet Discont inued 10 MG PO Daily February 15, 2025 10:36a m [facility] 2024 1:23p m Prednisone 2.5 mg tablet Active 2.5 MG PO Daily 2024 1:22pm Complies with drug therapy Tizanidine 2 mg tablet Discont inued 2 MG PO Every 8 hours as needed for muscle spasticity 30 10 2024 1:00am [facility] 2024 1:23p m Azithromyci n 250 mg tablet Discont inued 0 PO daily 6 5 2024 1:00am December 16, 2024 2:10p m Take 2 on day 1 and then take 1 for the next 4 days (days 2-5) Fluticasone Propionate (Flonase Allergy Relief) 50 mcg/actuati on spray,suspe nsion Discont inued 1 SPRAY INTRAN CORBIN Twice daily December 29, 2023 12:00a m January 23, 2024 8:38a m administer into each nostril Ferrous Sulfate (Feosol) 325 mg (65 mg iron) tablet Active 325 MG PO Twice daily December 29, 2023 12:00a m Complies with drug therapy Omeprazole 20 mg capsule,del ayed release(DR/ EC) Discont inued 20 MG PO Daily 90 December 16, 2024 12:00a m February 15, 2025 10:47 am Omeprazole 20 mg capsule,del ayed release(DR/ EC) Active 20 MG PO Daily 90 February 15, 2025 10:47a m Complies with drug therapy Alendronate 70 mg tablet Active 70 MG PO every week 2024 12:00a m Complies with drug therapy Furosemide (Lasix) 20 mg tablet Discont inued 20 MG PO Every morning 7 7 2024 12:00a m 2024 9:49a m Vital Signs Vital Reading Result Reference Range Collection Date/Time Height 60 [in_i] May 17, 2025 1:19pm Weight 68.03 kg May 17, 2025 1:19pm Body Temperature 96.6 [degF] 97.6-99.0 April 262024 1:19pm Heart Rate 83 /min 60-100 May 17, 2025 1:19pm Oxygen saturation by Pulse oximetry 94 % 95-100 May 17, 2025 1:19pm BP Systolic 120 mm[Hg] 100-140 May 17, 2025 1:19pm BP Diastolic 78 mm[Hg] 60-100 May 17, 2025 1:19pm BMI (Body Mass Index) 29.2 kg/m2 2024 1:19pm Height 60 [in_i] May 23, 2025 9:43am Weight 66.22 kg May 23, 2025 9:43am Body Temperature 95.9 [degF] 97.6-99.0 April 262024 9:43am Heart Rate 86 /min 60-100 May 23, 2025 9:43am Oxygen saturation by Pulse oximetry 97 % 95-100 May 23, 2025 9:43am BP Systolic 126 mm[Hg] 100-140 May 23, 2025 9:43am BP Diastolic 78 mm[Hg] 60-100 May 23, 2025 9:43am BMI (Body Mass Index) 28.5 kg/m2 Septem 2024 9:43am Advance Directives Advance Directive Response Recorded Date/ Time Advance Directives No June 22, 2018 4:12pm Insurance Providers Guarantor Minda Frankie Address [address] [address] Contact Info. Home Phone: Payer Policy Id Subscriber's Name Subscriber Id Ivy ctive Date Expiration Date [facility] PF [id number] Minda David [id number] Encounters Encounter Location(s) Arrival/Admit Date Discharge/Depart Date Provider(s) Departed Physician/Prov ider Office Visit -[facility] May 17, 2025 1:04pm May 17, 2025 2:07pm Giovanna Graf APRN CNP Departed Physician/Prov ider Office Visit -[facility] May 23, 2025 9:33am May 23, 2025 10:20am Giovanna Graf APRN CNP Recent Diagnosis Onset Date Admit Date Bilateral lower extremity edema Unknown May 17, 2025 1:04pm At high risk for falls Unknown May 23, 2025 9:33am GERD (gastroesophageal reflux disease) Unknown May 23, 2025 9:33am History of cataract extracti on with lens replacement Unknown May 23, 2025 9:33am Medicare annual wellness visit, subsequent Unkno wn May 23, 2025 9:33am Right knee pain Unknown May 23, 2025 9:33am Temporal arteritis Unknown April 9:33am Vision loss, bilateral Unknown May 23, 2025 9:33am Assessments Diagnosis Onset Date Resolution Status Admit Date Bilateral lower extremity edema acute May 17, 2025 1:04pm At high risk for falls acute Se ptember 2024 9:33am GERD (gastroesophageal reflu x disease) acute May 23, 2025 9:33am History of cataract extraction with lens replacement acute May 23, 2025 9:33am Medicare annual wellness visit, subsequent acute April 9:33am Right knee pain acute May 23, 2025 9:33am Temporal arteritis acute Septem victor manuel 2024 9:33am Vision loss, bilateral acute Se ptember 2024 9:33am Plan of Treatment Author Giovanna [facility] Authored May 23, 2025 9:53am Personalized health advice w as given to the beneficiary with a referral, if appropriate, to health education of preventative counseling services or programs aimed at reducing identified risk factors and improving self-management or community-based lifestyle interventions to reduce health risks and promote self-management and wellness, including weight loss, physical activity, smoking cessation, fall prevention and nutrition. A written plan for screenings discussed, including colonoscopy, mammography, flu vaccination, other vaccinations if at risk, routine lab studies, eye exams, glaucoma screening, skin checks, risk factors for medical problems discussed, including BP control, obesity, and need for consistent exercise. Advanced care planning reviewed. Counseling was provided here today - specifically in regard to any positively answered questions as noted above Reflux symptoms remain unchanged. Discussed the importance of meal content. They should avoid overeating and eating meals late in the evening. Not currently on medication. Discussed to monitor symptoms and call with any reoccurrence. Pt and daughter verbalize understanding. She continues to follow with Rheumatology and her next appt is 04/2024. She continues to get injections. Notes that she does not note any significant improvement in her vision with the injections. Discussed with pt and daughter that this is face to face visit for home health to assist with setting up house to decrease risk for falls as well as help with ADLs. Referral placed. Author Giovanna [facility] Authored May 17, 2025 3:03pm Discussed with pt need to el evated bilateral legs when in a sitting position. Also to wear compression socks daily during the day. Will start on Lasix 2O mg daily for 7 days. Will call next week to get an update. ER for any chest pain, SOB, or worsening in the swelling. Pt and family verbalzies understanding and agrees to plan of care. Future Tests Future scheduled test information is unavailable Pending Tests Pending diagnostic test information is unavailable Future Visits Future appointment information is unavailable Referrals to Other Providers Reason for Referral Referral Start Date Provider Provider Contact Information Provider Address M25.561 - Pain in right knee May 23, 2025 Feroz Bryan , DO Work Phone: [facility] [employer] [facility] [address] Future Procedures Future procedure information is unavailable Future Medications Future medication information is unavailable Patient Instructions Patient instructions are unavailable Hospital Discharge Instructions Ambulatory Orders* Referral to Orthopedic Surgery Time Frame: 05/23/25, Location: None Selected
--- OUTSIDE RECORDS SUMMARY | 2025-06-02 09:34 | XMS_ITS | CCD ---
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 Name Role Phone LEAH, DR PATO Perez Admitting Unavailabl e REINECK, DR PATO Perez Consulting Unavailabl e REINECK, DR PATO Perez Attending Unavailabl e HOUSE, DR BECKHAM Primary Care Unavailable SHANTELL GARCIA Consulting Unavailable CHANEL ., DR NICHOLAS Attending Unavailable KARAN JENKINS Consulting Unavailable HOUSE, DR BECKHAM Primary Care Unavailable CHANEL ., DR NICHOLAS Admitting Unavailable LADI LOPEZ Consulting Unavailable Tai SENIOR, Naomy Gordon Attending Unavailable Giedraitis , Naomy Gordon Attending Unavailable Giannaraitis , Andvolodymyr Gordon Attending Unavailable Giannaraitis , Andvolodymyr Gordon Attending Unavailable Giedraitis , Andvolodymyr Godron Attending Unavailable Giedraitis , Andvolodymyr Gordon Attending Unavailable TONO PAN Admitting Unavailable TONO PAN Attending Unavailable YOEL GAVIN Referring Unavailable HOUSE, JOHN Ambrocio Primary Care Unavailable MONTANA BARTLETT Consulting Unavailable ERA BYRNE Consulting Unavailable JOSE SHAW Consulting Unavailable GONZALES CARRILLO Consulting Unavailable MOUNA KURTZ Consulting Unavailable JT JASSO I Consulting Unavailable CARLITOS CARABALLO Referring Unavail able HOUSE, JOHN P Primary Care Unavailable TREVIN LÓPEZ Referring Unavailable HOUSE, JOHN Cristóbal Primary Care Unavailable RICKIE STEWART Attending Unavailable HOUSE, JOHN Ambrocio Primary Care Unavailable MAHNAZ OCHOA Attending Unavailable HOUSE, JOHN P Referring Unavailable ROHRBACHER, GIOVANNA Primary Care Unavailable MOUNA BAUTISTA Attending Unavailable ROHRBACHER, GIOVANNA Referring Unavailable ROHRBACHER, GIOVANNA Primary Care Unavailable HOUSE, JOHN P Referring Unavailable HOUSE, JOHN P Primary Care Unavailable HOUSE, JOHN P Referring Unavailable HOUSE, JOHN P Primary Care Unavailable HOUSE, JOHN P Referring Unavailable HOUSE, JOHN P Primary Care Unavailable MOUNA BAUTISTA Attending Unavailable JOHN PATEL Referring Unavailable ROHRBACHER, GIOVANNA Primary Care Unavailable Rohrbacher DRAFTER PATENT-EDITORIAL PROJECT MANAGER, Giovanna Primary [facility] er John Patel DO Primary Care Provider Zekerbacher REINA-EDITORIAL PROJECT MANAGER, Giovanna Primary Care [facility] er MYRA COTA Attending Unavailable ROHRBACHER, GIOVANNA Referring Unavailable ROHRBACHER, GIOVANNA Primary Care Unavailable MYRA COTA Attending Unavailable ROHRBACHER, GIOVANNA Referring Unavailable ROHRBACHER, GIOVANNA Primary Care Unavailable MYRA COTA Attending Unavailable ROHRBACHER, GIOVANNA Referring Unavailable ROHRBACHER, GIOVANNA Primary Care Unavailable ALTOROK, NEZAM I Attending Unavailable ALTOROK, NEZAM I Attending Unavailable ALTOROK, NEZAM I Attending Unavailable ALTOROK, NEZAM I Attending Unavailable Rohrbacher Giovanna HUANG Primary Care Provider Giovanna Graf APRN Attending Provider [phone] Allergies Allergy Classification Reported Allergen(s) Allergy Type Date of Onset Reaction(s) Facility (1 source) Penicillins Drug allergy (disorder) [facility] Repository (16 sources) Penicillin; Translations: [PENICILLIN] Drug Allergy 4 Confusion, Fever [facility] Repository (1 source) Ciprofloxacin; Translations: [CIPROFLOXACIN] Drug Allergy 4 [facility] Repository Medications Current Medications Medication Drug Class(es) Dates Sig (Normalized) Sig (Original) acetaminophen 500 mg oral capsule (20 sources) Start: 10-16-2023 take 1 capsule by mouth every six hours as needed Acetaminophen 500 mg capsule Active 500 MG PO Every 6 hours as needed October 16, 2023 1:00am Complies with drug therapy Start: 09-23-2023 End: 09-26-2023 take 4 g [...] (six) hours as needed for pain. Active alendronic acid 70 mg oral tablet (2 sources) Bisphosphonate Start: 05-17-2025 take 1 tablet by mouth every week Alendronate 70 mg tablet Active 70 MG PO every week May 17, 2025 12:00am Complies with drug therapy aspirin 81 mg delayed release oral tablet (18 sources) Platelet Aggregation Inhibitor, Nonsteroidal Anti-inflammatory Drug Start: 09-26-2023 End: 10-26-2023 take 1 tablet by mouth once daily Aspirin 81 mg tablet,delayed release (DR/EC) Active 81 MG PO Daily October 16, 2023 1:00am Complies with drug therapy aspirin 81 mg ch ewable tablet Chew 1 tablet (81 mg total) and swallow in the morning. Active ferrous sulfate 325 mg oral tablet (13 sources) Start: 12-29-2023 take 1 tablet by mouth twice daily Ferrous Sulfate (Feosol) 325 mg (65 mg iron) tablet Active 325 MG PO Twice daily December 29, 2023 12:00am Complies with drug therapy Start: 11-06-2023 take 1 tablet by irwin th in the morning, then take 1 tablet by mouth at mealtime ferrous sulfate 325 (65 FE) mg EC tablet Take 1 tablet (325 mg total) by mouth in the morning and 1 tablet (325 mg total) in the evening. Take with meals. 180 tablet 1 11/06/2023 Active fluticasone propionate 0.05 mg/actuat metered dose nasal spray (15 sources) Corticosteroid Start: 01-23-2024 take 2 spray(s) [...] TWICE A DAY Complies with drug therapy Start: 12-29-2023 End: 01-23-2024 take 1 spray(s) nasal route twice daily Fluticasone Propionate (Flonase Allergy Relief) 50 mcg/actuation spray,suspension Discontinued 1 SPRAY INTRANASAL Twice daily 16 30 December 29, 2023 12:00am January 23, 2024 8:38am administer into each nostril yibxbhlaewds-quaqgjgk-erzzip (MULTIVITAMIN 50 PLUS) tablet (2 sources) Start: 10-06-2024 End: 10-06-2025 tbcuvxzaqdvz-sqbmdcyf-dhtfyb (MULTIVITAMIN 50 PLUS) tablet Take 1 tablet by mouth in the morning. 10/06/2024 10/06/2025 Active omeprazole 20 mg delayed release oral capsule (6 sources) Proton Pump Inhibito r Start: 12-16-2024 End: 02-15-2025 take 1 capsule by mouth once daily Omeprazole 20 mg capsule,delayed release(DR/EC) Active 20 MG PO Daily 90 90 February 15, 2025 10:47am Complies with drug therapy take 2 capsules by mouth in the morning omeprazole (PriLOSEC) 10 mg capsule Take 2 capsules (20 mg total) by mouth in the morning. Active predniSONE 2.5 mg oral tablet (20 sources) Start: 05-17-2025 take 1 tablet by mouth once daily Prednisone 2.5 mg tablet Active 2.5 MG PO Daily May 17, 2025 1:22pm Complies with drug therapy Start: 02-15-2025 End: 05-17-2025 take 4 tablets by mouth once daily Prednisone 2.5 mg tablet Discontinued 10 MG PO Daily February 15, 2025 10:36am May 17, 2025 1:23pm Start: 04-13-2024 End: 02-15-2025 take 2 tablets by mouth once daily Prednisone 2.5 mg tablet Discontinued 5 MG PO Daily April 13, 2024 12:00am February 15, 2025 10:37am Start: 04-13-2024 take 5 mg by mouth once daily Prednisone Active 5 MG PO Daily April 13, 2024 12:00am Start: 10-16-2023 End: 04-13-2024 take 1 tablet by mouth once daily Prednisone 20 mg tablet Discontinued 20 MG PO Daily December 29, 2023 9:29am April 13, 2024 11:02am Start: 10-16-2023 take 0.5 tablet by m [...] 09-26-2023 predniSONE (DELTASONE) table t 60 mg 0.9 ml tocilizumab 180 mg/ml prefilled syringe (5 sources) Interleukin-6 Receptor Antagonist inject 0.9 mL by subcutaneous injection every week ACTEMRA 162 mg/0.9 mL injection Inject 0.9 mL (162 mg total) under the skin once a week. Active vitamin b12 1 mg oral capsule (19 sources) Vitamin B12 Start: 024 take 1 capsule by mouth once daily Cyanocobalamin (Vitamin B-12) 1,000 mcg capsule Active 1000 MCG PO Daily October 16, 2023 1:00am Complies with drug therapy Start: 09-23-2023 End: 04-19-2024 take 1 tablet [...] Sig (Original) azithromycin 250 mg oral tablet (4 sources) Macrolide Antimicrobial Start: 10-13-2024 End: 12-16-2024 Azithromycin 250 mg tablet Discontinued 0 PO daily 6 5 October 13, 2024 1:00am December 16, 2024 2:10pm Take 2 on day 1 and then take 1 for the next 4 days (days 2-5) ciprofloxacin 500 mg oral tablet (8 sources) Quinolone Antimicrobial Start: 06-24-2018 End: 07-01-2018 take 1 tablet by mouth twice daily Ciprofloxacin Hcl 500 mg tablet Discontinued 500 MG PO Twice daily 14 June 24, 2018 12:00am June 30, 2018 1:00am July 01, 2018 1:02am docusate sodium 50 mg / sennosides, retirement [...] End: 09-25-2023 fentaNYL (SUBLIMAZE) injection 50 mcg furosemide 20 mg oral tablet (2 sources) Loop Diuretic Start: 05-17-2025 End: 05-23-2025 take 1 tablet by mouth once daily in the morning Furosemide (Lasix) 20 mg tablet Discontinued 20 MG PO Every morning 7 May 17, 2025 12:00am May 23, 2025 9:49am gadoteridoL (PROHANCE) injection 5.26 mmol 10.52 mL [...] minutes. oxybutynin chloride 5 mg oral tablet (8 sources) Cholinergic Muscarinic Antagonist Start: 06-24-2018 End: [...] mg / trimethoprim 160 mg oral tablet (19 sources) Dihydrofolate Reductase Inhibitor Antibacterial, Sulfonamide Antimicrobial [...] (BACTRIM DS) 800-160 mg tablet 1 tablet tiZANidine 2 mg oral tablet (4 sources) Central alpha-2 Adrenergic Agonist Start: 10-13-2024 End: 05-17-2025 take 1 tablet by mouth every eight hours as needed Tizanidine 2 mg tablet Discontinued 2 MG PO Every 8 hours as needed for muscle spasticity 30 October 13, 2024 1:00am May 17, 2025 1:23pm Problems Active Problems Problem Classification Problem Date Documented Date Episodic/Chronic Blindness and vision defects (12 sources) Bilateral visual impairment; Translations: [Unqualified visual [...] [Other hyperlipidemia] Onset: 10-06-2024 Chronic Esophageal disorders (13 sources) Gastroesophageal reflux disease; Translations: [Gastro-esophageal reflux disease without esophagitis] 10-16-2023 Chronic Genitourinary symptoms and ill-defined conditions (4 sources) Increased frequency of urination; Translations: [Frequency of micturition] 07-12-2024 Episodic Immunity disorders (2 sources) Immunodeficiency, unspecified; Translations: [Immunodeficiency, unspecified] Onset: 02-01-2025 Chronic Neoplasms of unspecified nature or uncertain behavior (12 sources) Thrombocytosis; Translations: [Thrombocytosis] Onset: 11-06-2023 11-06-2023 Episodic Nutritional deficiencies (5 sources) Deficiency of other specified B group vitamins; Translations: [Cobalamin deficiency] Onset: 09-23-2023 09-23-2023 Episodic Osteoporosis (2 sources) Age-related osteoporosis without current pathological fracture; Translations: [Age-related osteoporosis without current pathological fracture] Onset: 03-15-2025 Chronic Other aftercare (8 sources) Post-discharge follow-up; Translations: [Encounter for follow-up examination after completed treatment for conditions other than malignant neoplasm] 10-16-2023 Episodic Other aftercare (2 sources) Encounter for follow-up examination after completed treatment for conditions other than malignant neoplasm; Translations: [Other follow-up examination] 10-16-2023 Episodic Other aftercare (2 sources) 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; Translations: [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] Onset: 02-01-2025 Episodic Other circulatory disease (2 sources) Other specified symptoms and signs involving the circulatory and respiratory systems; Translations: [Other specified symptoms and signs involving the circulatory and respiratory systems] Onset: 02-01-2025 Episodic Other connective tissue disease (1 source) Unspecified symptoms and signs involving the nervous system; Translations: [Unspecified symptoms and signs involving the nervous system] Onset: 09-23-2023 Episodic Other connective tissue disease (4 sources) Spasm; Translations: [Other muscle spasm] 10-13-2024 Episodic Other connective tissue disease (2 sources) Other muscle spasm; Translations: [Spasm of muscle] 10-13-2024 Episodic Other injuries and conditions due to external causes (6 sources) At high risk for fall; Translations: [History of falling] 04-14-2024 Episodic Other injuries and conditions due to external causes (1 source) History of falling; Translations: [History of fall] 04-13-2024 Episodic Other non-traumatic joint disorders (5 sources) Pain in right knee; Translations: [Right knee pain] Onset: 04-25-2022 Episodic Other non-traumatic joint disorders (1 source) Knee pain Episodic Other skin disorders (5 sources) Dry skin dermatitis; Translations: [Xerosis cutis] 04-14-2024 Episodic Other skin disorders (1 source) Xerosis cutis; Translations: [Contact dermatitis and other eczema due to other specified agents] 04-13-2024 Episodic Otitis media and related conditions (20 sources) Dysfunction of eustachian tube; Translations: [Unspecified Eustachian tube disorder, unspecified ear] 12-29-2023 Episodic Residual codes; unclassified (4 sources) Bilateral lower limb edema; Translations: [Localized edema] 05-17-2025 Episodic Spondylosis; intervertebral disc disorders; other back problems (1 source) Spondylosis without myelopathy or radiculopathy, cervical region; Translations: [SPONDYLS W/O MYELO-/RADICULOP CERV] Onset: 12-26-2022 Chronic Spondylosis; intervertebral disc disorders; other back problems (10 sources) Dorsalgia, unspecified; Translations: [Spinal stenosis, cervical region] Onset: 12-25-2022 Episodic Systemic lupus erythematosus and connective tissue disorders (20 sources) Other giant cell arteritis; Translations: [Temporal arteritis] Onset: 09-23-2023 10-16-2023 Chronic Unclassified (2 sources) Thrombocytosis, unspecified; Translations: [Thrombocytosis, unspecified] Onset: 09-23-2023 Unclassified (1 source) CVA symptoms Onset: 09-23-2023 Unclassified (1 source) M25.561 - Pain in right knee Past or Other Problems Problem Classification Problem [...] immunological findings in serum] Onset: 05-05-2024 Episodic Mood disorders (11 sources) Mood disorders Onset: 09-23-2023 09-23-2023 Other connective tissue disease (1 source) Pain in lower limb Onset: 02-05-2024 Episodic Other connective tissue disease (13 sources) Neurological symptom; Translations: [Unspecified symptoms and signs involving the nervous system] Onset: 09-23-2023 09-23-2023 Episodic Residual codes; unclassified (1 source) Pain, unspecified; Translations: [Pain, unspecified] Onset: 09-24-2023 Episodic Sprains and strains (1 source) Sprain of unspecified site of right knee, initial encounter; Translations: [SPRAIN UNS SITE RT KNEE INITIAL] Onset: 04-26-2022 Episodic Results Test Name Value Interpretation Reference Range Facility 3604-04-2025 36 Can the fosamax caus e or increase depression symptoms per daughter's request? [facility] Follow-Upon 03-15-2025 Follow-Up [id number] Carlyle David 1945 F Date Provider Department Center 03/15/2025 JT CROOK I [facility] No family history on file Level of Service:99612 DE OFFICE/OUTPATIENT ESTABLISHED MOD MDM 30 MIN (GC) Reason for Visit and Comments: Follow-up [097909] - 6 Wk Follow Up On [facility] 36on 03-08-2025 36 Spoke with patient order was routed through [facility] to [facility] imaging and hard copy mailed to patient. [facility] 02-14-2025 36 Spoke with Deya and apologized that they labs had not be located while I was off. I did call [facility] and lab results were sent immediately after my request. Daughter informed that Dr. Jasso will review and if any earlier follow up is needed that I would call them back. [facility] 36 Patient daughter naila ld like a return dalia back,. She is wanting to know if lab results were found. Professor Of Rhetoric confirmed call back number. [facility] Follow-Upon 02-01-2025 Follow-Up [id number] Carlyle David 1945 F Date Provider Department Center 02/01/2025 JT CROOK I [facility] No family history on file Level of Service:71400 DE OFFICE/OUTPATIENT ESTABLISHED MOD MDM 30 MIN (GC) Reason for Visit and Comments: Follow-up [858103] - [facility]. Recent increase in Headaches started approximatly 2 weeks. Improvement with prednisone [facility] 36on 01-25-2025 36 LVM informing wong t's daughter. [facility] 36on 01-24-2025 36 Spoke with patient's daughter this morning and she is stable right now with slightly improved symptoms. She is currently taking Prednisone 2.5mg daily , should she come into office or change medications? Please advise. Thanks [facility] Basophils Auto (Bld) [#/Vol] on 12-10-2024 Basophils (Bld) [#/Vol] Automated basoph il count 0.0-0.1 [facility] Basophils/100 WBC Auto (Bld) on 12-10-2024 Basophils/100 WBC (Bld) Automated basophil % 0. 2-2.0 [facility] Eosinophils/100 WBC Auto (Bl d)on 12-10-2024 Eosinophils/100 WBC (Bld) Automated eosinophil % 0.9-7.0 [facility] Erythrocyte distribution wid th Auto (RBC) [Ratio]on 12-10-2024 Erythrocyte distribution width (RBC) [Ratio] Erythrocyte distribution width [Ratio] by Automated count 11.0-15.0 [facility] Estimated glomerular filtrat ion rate (GFR) non- Americanon 12-10-2024 GFR/1.73 sq M.predicted among non-blacks MDRD (S/P/Bld) [Vol rate/Area] Estimated glomerular filtration rate (GFR) non- Low >=60 mL/min/1.73 m 2 [facility] Hematocrit Auto (Bld) [Volum e fraction]on 12-10-2024 Hematocrit (Bld) [Volume fraction] Hematocrit [Volume Fraction] of Blood by Automated count 36.0-48.0 [facility] Hemoglobin [Mass/volume] in Bloodon 12-10-2024 Hemoglobin (Bld) [Mass/Vol] Hemoglobin [Mass/volume] in Blood 12.0-16.0 [facility] Laboratory - Chemistry and C hemistry - challengeon 12-10-2024 Calcium [Mass/Vol] 9.3 mg/dL 8.5-10.1 [facility] Chloride [Moles/Vol] 106 mmol/L 98-107 [facility] CO2 [Moles/Vol] 31.8 mmol/L 21.0-32.0 [facility] Creatinine [Mass/Vol] 0.92 mg/dL 0.55-1.02 [facility] GFR/1.73 sq M.predicted MDRD (S/P/Bld) [Vol rate/Area] mL/min/{1.73_m2} >=60 mL/min/1.73 m 2 [facility] Glucose [Mass/Vol] 98 mg/dL 74-106 [facility] Potassium [Moles/Vol] 3.8 mmol/L 3.5-5.1 [facility] Sodium [Moles/Vol] 145 mmol/L 136-145 [facility] Urea nitrogen [Mass/Vol] 30.0 mg/dL High 7.0-18.0 [facility] Urea nitrogen/Creatinine [Mass ratio] 32.6 mg/mg [facility] Laboratory - Hematology and Cell countson 12-10-2024 Immature granulocytes/100 WBC (Bld) 0.1 % 0.0-0.5 [facility] Leukocytes [#/volume] correc tyrone for nucleated erythrocytes in Blood by Automated counon 12-10-2024 WBC corrected for nucl RBC Auto (Bld) [#/Vol] Leukocytes [#/volume] corrected for nucleated erythrocytes in Blood by Automated coun 4.0-11.0 [facility] Lymphocytes Auto (Bld) [#/Vo l]on 12-10-2024 Lymphocytes (Bld) [#/Vol] Lymphocytes [#/volume] in Blood by Automated count High 1.2-3.8 [facility] Lymphocytes/100 WBC Auto (Bl d)on 12-10-2024 Lymphocytes/100 WBC (Bld) Lymphocytes/100 leukocytes in Blood by Automated count 20.5-60.0 [facility] MCH Auto (RBC) [Entitic mass ]on 12-10-2024 MCH (RBC) [Entitic mass] MCH [Entitic ma ss] by Automated count 26.7-34.0 [facility] MCHC Auto (RBC) [Mass/Vol]on 12-10-2024 MCHC (RBC) [Mass/Vol] MCHC [Mass/volume] by Automated count 29.9-35.2 [facility] MCV Auto (RBC) [Entitic vol] on 12-10-2024 MCV (RBC) [Entitic vol] MCV [Entitic vol ume] by Automated count 81.0-99.0 [facility] Monocytes Auto (Bld) [#/Vol] on 12-10-2024 Monocytes (Bld) [#/Vol] Automated blood monocyte count 0.3-0.8 [facility] Monocytes/100 WBC Auto (Bld) on 12-10-2024 Monocytes/100 WBC (Bld) Automated monocyte % 1. 7-12.0 [facility] Neutrophils Auto (Bld) [#/Vo l]on 12-10-2024 Neutrophils (Bld) [#/Vol] Neutrophils [#/volume] in Blood by Automated count 1.4-6.5 [facility] Neutrophils/100 WBC Auto (Bl d)on 12-10-2024 Neutrophils/100 WBC (Bld) Automated neutrophil % Low 43.0-75.0 [facility] No Panel Informationon 12-10 Eosinophils # (Auto) 0.2 10 3/uL 0.0-0.7 [facility] Immature Granulocyte # (Auto) 0.01 10 3/uL 0.00-0.03 [facility] Troponin I High Sensitivity 25.3 pg/mL 4.0-51.3 [facility] Comment on above: CUT-OFF POINTS HAVE BEEN [...] volume] in Blood by Automated count 9.5-13.5 [facility] Platelets Auto (Bld) [#/Vol] on 12-10-2024 Platelets (Bld) [#/Vol] Platelets [#/vol ume] in Blood by Automated count 150-450 [facility] RBC Auto (Bld) [#/Vol]on RBC (Bld) [#/Vol] Erythrocytes [#/volu me] in Blood by Automated count Low 4.20-5.40 [facility] Serum or plasma anion gap de terminationon 12-10-2024 Anion gap [Moles/Vol] Serum or plasma an ion gap determination [facility] 36on 12-06-2024 36 Spoke with patient's daughter and she is requesting training on pen device. [facility] performed training in the past. Given phone number for pharmacy. [facility] Refillon 11-23-2024 Refill [id number] Carlyle David 1945 F Date Provider Department Center 11/23/2024 LINDSAY JACKSON [facility] No family history on file Reason for Visit and Comments: Med Refill [[id number]] [facility] 36on 11-15-2024 36 Informed CBC, ESR , Albumin and globulin level received from [facility] 36 Spoke with daughter, informed that we had not received any lab results on the patient. Daughter states that they were completed earlier this month at [facility]. LVM at [place] requesting results of lab be faxed to our office [facility]. Fax number and contact number left on voicemail with med records. Awaiting results [facility] 36 LVM again returning daughter's call regarding Lab results. [facility] 36on 11-12-2024 36 Voicemail, patient's daughter, Malinda, would like a callback at [phone] to discuss lab results [facility] Telephoneon 11-12-2024 Telephone [id number] Carlyle David 1945 F Date Provider Department Center 11/12/2024 JT CROOK I [facility] No family history on file [facility] 36on 11-11-2024 36 LVM returning call. I do not have any recent lab results in the patient's chart. [facility] 36 Patient daughter dalia led about lab results. [facility] Basophils Auto (Bld) [#/Vol] on 11-06-2024 Basophils (Bld) [#/Vol] Automated basoph il count 0.0-0.1 [facility] Basophils/100 WBC Auto (Bld) on 11-06-2024 Basophils/100 WBC (Bld) Automated basophil % 0. 2-2.0 [facility] Eosinophils/100 WBC Auto (Bl d)on 11-06-2024 Eosinophils/100 WBC (Bld) Automated eosinophil % 0.9-7.0 [facility] Erythrocyte distribution wid th Auto (RBC) [Ratio]on 11-06-2024 Erythrocyte distribution width (RBC) [Ratio] Erythrocyte distribution width [Ratio] by Automated count 11.0-15.0 [facility] Estimated glomerular filtrat ion rate (GFR) non- Americanon 11-06-2024 GFR/1.73 sq M.predicted among non-blacks MDRD (S/P/Bld) [Vol rate/Area] Estimated glomerular filtration rate (GFR) non- >=60 mL/min/1.73 m 2 [facility] Globulin Calc (S) [Mass/Vol] on 11-06-2024 Globulin (S) [Mass/Vol] Serum globulin measurement by calculation (mass/volume) [facility] Hematocrit Auto (Bld) [Volum e fraction]on 11-06-2024 Hematocrit (Bld) [Volume fraction] Hematocrit [Volume Fraction] of Blood by Automated count 36.0-48.0 [facility] Hemoglobin [Mass/volume] in Bloodon 11-06-2024 Hemoglobin (Bld) [Mass/Vol] Hemoglobin [Mass/volume] in Blood Low 12.0-16.0 [facility] Laboratory - Chemistry and C hemistry - challengeon 11-06-2024 Albumin [Mass/Vol] 3.5 g/dL 3.4-5.0 [facility] ALP [Catalytic activity/Vol] 64 U/L 46-116 [facility] ALT [Catalytic activity/Vol] 26 U/L 14-59 [facility] AST [Catalytic activity/Vol] 19 U/L 15-37 [facility] Bilirubin [Mass/Vol] 0.6 mg/dL 0.2-1.0 [facility] Calcium [Mass/Vol] 8.9 mg/dL 8.5-10.1 [facility] Chloride [Moles/Vol] 107 mmol/L 98-107 [facility] CO2 [Moles/Vol] 31.8 mmol/L 21.0-32.0 [facility] Creatinine [Mass/Vol] 0.81 mg/dL 0.55-1.02 [facility] GFR/1.73 sq M.predicted MDRD (S/P/Bld) [Vol rate/Area] mL/min/{1.73_m2} >=60 mL/min/1.73 m 2 [facility] Glucose [Mass/Vol] 90 mg/dL 74-106 [facility] Potassium [Moles/Vol] 4.1 mmol/L 3.5-5.1 [facility] Protein [Mass/Vol] 6.0 g/dL Low 6.4-8.2 [facility] Sodium [Moles/Vol] 145 mmol/L 136-145 [facility] Urea nitrogen [Mass/Vol] 28.0 mg/dL High 7.0-18.0 [facility] Urea nitrogen/Creatinine [Mass ratio] 34.6 mg/mg [facility] Laboratory - Hematology and Cell countson 11-06-2024 ESR (Bld) [Velocity] 2 mm/h <=30 [facility] Immature granulocytes/100 WBC (Bld) 0.0 % 0.0-0.5 [facility] Leukocytes [#/volume] correc tyrone for nucleated erythrocytes in Blood by Automated counon 11-06-2024 WBC corrected for nucl RBC Auto (Bld) [#/Vol] Leukocytes [#/volume] corrected for nucleated erythrocytes in Blood by Automated coun 4.0-11.0 [facility] Lymphocytes Auto (Bld) [#/Vo l]on 11-06-2024 Lymphocytes (Bld) [#/Vol] Lymphocytes [#/volume] in Blood by Automated count 1.2-3.8 [facility] Lymphocytes/100 WBC Auto (Bl d)on 11-06-2024 Lymphocytes/100 WBC (Bld) Lymphocytes/100 leukocytes in Blood by Automated count 20.5-60.0 [facility] MCH Auto (RBC) [Entitic mass ]on 11-06-2024 MCH (RBC) [Entitic mass] MCH [Entitic ma ss] by Automated count 26.7-34.0 [facility] MCHC Auto (RBC) [Mass/Vol]on 11-06-2024 MCHC (RBC) [Mass/Vol] MCHC [Mass/volume] by Automated count 29.9-35.2 [facility] MCV Auto (RBC) [Entitic vol] on 11-06-2024 MCV (RBC) [Entitic vol] MCV [Entitic vol ume] by Automated count 81.0-99.0 [facility] Monocytes Auto (Bld) [#/Vol] on 11-06-2024 Monocytes (Bld) [#/Vol] Automated blood monocyte count 0.3-0.8 [facility] Monocytes/100 WBC Auto (Bld) on 11-06-2024 Monocytes/100 WBC (Bld) Automated monocyte % 1. 7-12.0 [facility] Neutrophils Auto (Bld) [#/Vo l]on 11-06-2024 Neutrophils (Bld) [#/Vol] Neutrophils [#/volume] in Blood by Automated count 1.4-6.5 [facility] Neutrophils/100 WBC Auto (Bl d)on 11-06-2024 Neutrophils/100 WBC (Bld) Automated neutrophil % Low 43.0-75.0 [facility] No Panel Informationon 11-06 Eosinophils # (Auto) 0.2 10 3/uL 0.0-0.7 [facility] Immature Granulocyte # (Auto) 0.00 10 3/uL 0.00-0.03 [facility] Platelet mean volume Auto (B ld) [Entitic vol]on 11-06-2024 Platelet mean volume (Bld) [Entitic vol] Platelet mean volume [Entitic volume] in Blood by Automated count Low 9.5-13.5 [facility] Platelets Auto (Bld) [#/Vol] on 11-06-2024 Platelets (Bld) [#/Vol] Platelets [#/vol ume] in Blood by Automated count 150-450 [facility] RBC Auto (Bld) [#/Vol]on RBC (Bld) [#/Vol] Erythrocytes [#/volu me] in Blood by Automated count Low 4.20-5.40 [facility] Serum or plasma albumin/glob ulin mass ratioon 11-06-2024 Albumin/Globulin [Mass ratio] Serum or plasma albumin/globulin mass ratio [facility] Serum or plasma anion gap de terminationon 11-06-2024 Anion gap [Moles/Vol] Serum or plasma an ion gap determination [facility] 29on 11-02-2024 29 Addended by: LINDSAY TIERNEY on: 11/02/2024 10:24 AM Modules accepted: Orders [facility] 36on 11-02-2024 36 Spoke with patient's daughter. The orders were not faxed to [facility] last week. I refaxed the standing orders and mailed hard copies to patient. [facility] 36 Spoke with patient's daughter and they stated that [facility] did not receive. I will fax again and mail hard copies to patient. [facility] 36 The patient daught called stating they would like to speak with the MA to discuss the shot the patient receives every 14 days is not in the chart as well as lab apers are needing to be faxed over to [facility] because they have not been received. [facility] 36on 10-28-2024 36 Printed patient labs and fax them to the fax number provided. [facility] Orders Onlyon 10-28-2024 Orders Only [id number] Carlyle David 1945 F Date Provider Department Center 10/28/2024 [id number], JT I [facility] No family history on file [facility] 36on 10-25-2024 36 PT daughter called i n requesting labs to be sent to john. Fax number provided is [phone]. Daughter stated that she wanted to know if she can have a standard order sent over from now on since these labs are required every three month. [facility] Telephoneon 03-03-2025 Telephone [phone] Carlyle David 1945 F Date Provider Department Center 10/25/2024 215GIOVANNIJT ESPANA I [facility] No family history on file [facility] Follow-Upon 10-06-2024 Follow-Up [id number] Carlyle David 1945 F Date Provider Department Center 10/06/2024 215GIOVANNIJT ESPANA I [facility] No family history on file Level of Service:02244 DE OFFICE/OUTPATIENT ESTABLISHED MOD MDM 30 MIN [facility] Basophils Auto (Bld) [#/Vol] on 09-02-2024 Basophils (Bld) [#/Vol] Automated basoph il count 0.0-0.1 [facility] Basophils/100 WBC Auto (Bld) on 09-02-2024 Basophils/100 WBC (Bld) Automated basophil % 0. 2-2.0 [facility] Cholesterol in LDL Calc [Mas s/Vol]on 09-02-2024 Cholesterol in LDL [Mass/Vol] Cholesterol in LDL [Mass/volume] in Serum or Plasma by calculation [facility] Comment on above: <100 mg/dl [id number] 0-129 mg/dl NEAR OR ABOVE [id number] mg/dl BORDERLINE [id number] mg/dl HIGH>190 mg/dl VERY HIGH Cholesterol in VLDL Calc [Ma ss/Vol]on 09-02-2024 Cholesterol in VLDL [Mass/Vol] Cholesterol in VLDL [Mass/volume] in Serum or Plasma by calculation [facility] Eosinophils/100 WBC Auto (Bl d)on 09-02-2024 Eosinophils/100 WBC (Bld) Automated eosinophil % 0.9-7.0 [facility] Erythrocyte distribution wid th Auto (RBC) [Ratio]on 09-02-2024 Erythrocyte distribution width (RBC) [Ratio] Erythrocyte distribution width [Ratio] by Automated count 11.0-15.0 [facility] Estimated glomerular filtrat ion rate (GFR) non- Americanon 09-02-2024 GFR/1.73 sq M.predicted among non-blacks MDRD (S/P/Bld) [Vol rate/Area] Estimated glomerular filtration rate (GFR) non- >=60 mL/min/1.73 m 2 [facility] Globulin Calc (S) [Mass/Vol] on 09-02-2024 Globulin (S) [Mass/Vol] Serum globulin measurement by calculation (mass/volume) [facility] Hematocrit Auto (Bld) [Volum e fraction]on 09-02-2024 Hematocrit (Bld) [Volume fraction] Hematocrit [Volume Fraction] of Blood by Automated count 36.0-48.0 [facility] Hemoglobin [Mass/volume] in Bloodon 09-02-2024 Hemoglobin (Bld) [Mass/Vol] Hemoglobin [Mass/volume] in Blood 12.0-16.0 [facility] Iron binding capacity [Mass/ volume] in Serum or Plasmaon 09-02-2024 Iron binding capacity [Mass/Vol] Iron binding capacity [Mass/volume] in Serum or Plasma 250.0-450.0 [facility] Iron saturation [Mass Fracti on] in Serum or Plasmaon 09-02-2024 Iron saturation [Mass fraction] Iron saturation [Mass Fraction] in Serum or Plasma [facility] Laboratory - Chemistry and C hemistry - challengeon 09-02-2024 Albumin [Mass/Vol] 3.6 g/dL 3.4-5.0 [facility] ALP [Catalytic activity/Vol] 62 U/L 46-116 [facility] ALT [Catalytic activity/Vol] 25 U/L 14-59 [facility] AST [Catalytic activity/Vol] 19 U/L 15-37 [facility] Bilirubin [Mass/Vol] 0.5 mg/dL 0.2-1.0 [facility] Calcium [Mass/Vol] 8.9 mg/dL 8.5-10.1 [facility] Chloride [Moles/Vol] 107 mmol/L 98-107 [facility] Cholesterol [Mass/Vol] 315 mg/dL High <=200 [facility] Cholesterol in HDL [Mass/Vol] 99 mg/dL High 40-60 [facility] Comment on above: > or =60 mg/dl - LOW CARDIOVASCULAR RISK<40 mg/dl - HIGH CARDIOVASCULAR RISK CO2 [Moles/Vol] 32.2 mmol/L High 21.0-32.0 [facility] Cobalamin (Vitamin B12) [Mass/Vol] 1376 pg/mL Abnormal 232-1245 [facility] Comment on above: Performed at: - [address] [id number] Director: Bobby Mckeon PhD, Phone: [phone] Creatinine [Mass/Vol] 0.89 mg/dL 0.55-1.02 [facility] Ferritin [Mass/Vol] 363.0 ng/mL High 8.0-252.0 [facility] GFR/1.73 sq M.predicted MDRD (S/P/Bld) [Vol rate/Area] mL/min/{1.73_m2} >=60 mL/min/1.73 m 2 [facility] Glucose [Mass/Vol] 85 mg/dL 74-106 [facility] Iron [Mass/Vol] 121.0 ug/dL 50.0-170.0 [facility] Potassium [Moles/Vol] 4.0 mmol/L 3.5-5.1 [facility] Protein [Mass/Vol] 6.2 g/dL Low 6.4-8.2 [facility] Sodium [Moles/Vol] 144 mmol/L 136-145 [facility] Triglyceride [Mass/Vol] 86 mg/dL <=150 [facility] Urea nitrogen [Mass/Vol] 31.0 mg/dL High 7.0-18.0 [facility] Urea nitrogen/Creatinine [Mass ratio] 34.8 mg/mg [facility] Laboratory - Hematology and Cell countson 09-02-2024 ESR (Bld) [Velocity] 3 mm/h <=30 [facility] Immature granulocytes/100 WBC (Bld) 0.0 % 0.0-0.5 [facility] Leukocytes [#/volume] correc tyrone for nucleated erythrocytes in Blood by Automated counon 09-02-2024 WBC corrected for nucl RBC Auto (Bld) [#/Vol] Leukocytes [#/volume] corrected for nucleated erythrocytes in Blood by Automated coun 4.0-11.0 [facility] Lymphocytes Auto (Bld) [#/Vo l]on 09-02-2024 Lymphocytes (Bld) [#/Vol] Lymphocytes [#/volume] in Blood by Automated count 1.2-3.8 [facility] Lymphocytes/100 WBC Auto (Bl d)on 09-02-2024 Lymphocytes/100 WBC (Bld) Lymphocytes/100 leukocytes in Blood by Automated count 20.5-60.0 [facility] MCH Auto (RBC) [Entitic mass ]on 09-02-2024 MCH (RBC) [Entitic mass] MCH [Entitic ma ss] by Automated count 26.7-34.0 [facility] MCHC Auto (RBC) [Mass/Vol]on 09-02-2024 MCHC (RBC) [Mass/Vol] MCHC [Mass/volume] by Automated count 29.9-35.2 [facility] MCV Auto (RBC) [Entitic vol] on 09-02-2024 MCV (RBC) [Entitic vol] MCV [Entitic vol ume] by Automated count 81.0-99.0 [facility] Monocytes Auto (Bld) [#/Vol] on 09-02-2024 Monocytes (Bld) [#/Vol] Automated blood monocyte count 0.3-0.8 [facility] Monocytes/100 WBC Auto (Bld) on 09-02-2024 Monocytes/100 WBC (Bld) Automated monocyte % 1. 7-12.0 [facility] Neutrophils Auto (Bld) [#/Vo l]on 09-02-2024 Neutrophils (Bld) [#/Vol] Neutrophils [#/volume] in Blood by Automated count 1.4-6.5 [facility] Neutrophils/100 WBC Auto (Bl d)on 09-02-2024 Neutrophils/100 WBC (Bld) Automated neutrophil % Low 43.0-75.0 [facility] No Panel Informationon 09-02 Eosinophils # (Auto) 0.2 10 3/uL 0.0-0.7 [facility] Immature Granulocyte # (Auto) 0.00 10 3/uL 0.00-0.03 [facility] Platelet mean volume Auto (B ld) [Entitic vol]on 09-02-2024 Platelet mean volume (Bld) [Entitic vol] Platelet mean volume [Entitic volume] in Blood by Automated count Low 9.5-13.5 [facility] Platelets Auto (Bld) [#/Vol] on 09-02-2024 Platelets (Bld) [#/Vol] Platelets [#/vol ume] in Blood by Automated count 150-450 [facility] RBC Auto (Bld) [#/Vol]on RBC (Bld) [#/Vol] Erythrocytes [#/volu me] in Blood by Automated count Low 4.20-5.40 [facility] Serum or plasma albumin/glob ulin mass ratioon 09-02-2024 Albumin/Globulin [Mass ratio] Serum or plasma albumin/globulin mass ratio [facility] Serum or plasma anion gap de terminationon 09-02-2024 Anion gap [Moles/Vol] Serum or plasma an ion gap determination [facility] Serum or plasma total choles terol/high density lipoprotein (HDL) cholesterol mass artie 09-02-2024 Cholesterol.total/Choles terol in HDL [Mass ratio] Serum or plasma total cholesterol/high density lipoprotein (HDL) cholesterol mass rat [facility] Comment on above: 3.3 - 4.4 LOW RISK4. 4 - 7.1 AVERAGE RISK7.1 - 11.0 MODERATE RISK>11.0 [facility] 36on 08-13-2024 36 Patients daughter contacted office requesting patient lab orders be faxed to [facility]. Faxed orders to number on their website, . Mailed copies of labs to patient as well. [facility] Laboratory - Chemistry and C hemistry - challengeon 07-16-2024 Bilirubin Ql (U) Negative [facility] Glucose (U) [Mass/Vol] Negative [facility] Ketones Ql (U) Negative [facility] pH (U) 6.5 [pH] [facility] Specific gravity (U) [Rel density] 1.000 [facility] Urobilinogen (U) [Mass/Vol] 0.2 mg/dL [facility] Laboratory - Specimen inform ationon 07-16-2024 Appearance (U) cloudy [facility] Color (U) lightyellow [facility] Laboratory - Urinalysison Leukocyte esterase Test strip Ql (U) Negative [facility] Nitrite Ql (U) Negative [facility] Protein Ql (U) Negative [facility] No Panel Informationon 07-16 Urine Occult Blood Negative [facility] Follow-Upon 05-05-2024 Follow-Up [id number] Carlyle David 1945 F Date Provider Department Center 05/05/2024 [id number] JASSO I UTCF [facility] No family history on file Level of Service:78750 DE OFFICE/OUTPATIENT ESTABLISHED LOW MDM 20 MIN Reason for Visit and Comments: Follow-up [410988] - 1 headache a few weeks ago. Increased itching for a few months [facility] Basophils Auto (Bld) [#/Vol] on 04-30-2024 Basophils (Bld) [#/Vol] Automated basoph il count 0.0-0.1 [facility] Basophils/100 WBC Auto (Bld) on 04-30-2024 Basophils/100 WBC (Bld) Automated basophil % 0. 2-2.0 [facility] Cholesterol in LDL Calc [Mas s/Vol]on 04-30-2024 Cholesterol in LDL [Mass/Vol] Cholesterol in LDL [Mass/volume] in Serum or Plasma by calculation [facility] Comment on above: <100 mg/dl [id number] 0-129 mg/dl NEAR OR ABOVE [id number] mg/dl BORDERLINE [id number] mg/dl HIGH>190 mg/dl VERY HIGH Cholesterol in VLDL Calc [Ma ss/Vol]on 04-30-2024 Cholesterol in VLDL [Mass/Vol] Cholesterol in VLDL [Mass/volume] in Serum or Plasma by calculation [facility] Eosinophils/100 WBC Auto (Bl d)on 04-30-2024 Eosinophils/100 WBC (Bld) Automated eosinophil % 0.9-7.0 [facility] Erythrocyte distribution wid th Auto (RBC) [Ratio]on 04-30-2024 Erythrocyte distribution width (RBC) [Ratio] Erythrocyte distribution width [Ratio] by Automated count 11.0-15.0 [facility] Estimated glomerular filtrat ion rate (GFR) non- Americanon 04-30-2024 GFR/1.73 sq M.predicted among non-blacks MDRD (S/P/Bld) [Vol rate/Area] Estimated glomerular filtration rate (GFR) non- >=60 [facility] Globulin Calc (S) [Mass/Vol] on 04-30-2024 Globulin (S) [Mass/Vol] Serum globulin measurement by calculation (mass/volume) [facility] Hematocrit Auto (Bld) [Volum e fraction]on 04-30-2024 Hematocrit (Bld) [Volume fraction] Hematocrit [Volume Fraction] of Blood by Automated count 36.0-48.0 [facility] Hemoglobin [Mass/volume] in Bloodon 04-30-2024 Hemoglobin (Bld) [Mass/Vol] Hemoglobin [Mass/volume] in Blood 12.0-16.0 [facility] Laboratory - Chemistry and C hemistry - challengeon 04-30-2024 Albumin [Mass/Vol] 3.3 g/dL Low 3.4-5.0 [facility] ALP [Catalytic activity/Vol] 49 U/L 46-116 [facility] ALT [Catalytic activity/Vol] 29 U/L 14-59 [facility] AST [Catalytic activity/Vol] 23 U/L 15-37 [facility] Bilirubin [Mass/Vol] 0.5 mg/dL 0.2-1.0 [facility] Calcium [Mass/Vol] 9.0 mg/dL 8.5-10.1 [facility] Chloride [Moles/Vol] 105 mmol/L 98-107 [facility] Cholesterol [Mass/Vol] 302 mg/dL High <=200 [facility] Cholesterol in HDL [Mass/Vol] 95 mg/dL High 40-60 [facility] Comment on above: > or =60 mg/dl - LOW CARDIOVASCULAR RISK<40 mg/dl - HIGH CARDIOVASCULAR RISK CO2 [Moles/Vol] 32.1 mmol/L High 21.0-32.0 [facility] Creatinine [Mass/Vol] 0.87 mg/dL 0.55-1.02 [facility] GFR/1.73 sq M.predicted MDRD (S/P/Bld) [Vol rate/Area] mL/min/{1.73_m2} >=60 [facility] Glucose [Mass/Vol] 85 mg/dL 74-106 [facility] Potassium [Moles/Vol] 3.8 mmol/L 3.5-5.1 [facility] Protein [Mass/Vol] 5.9 g/dL Low 6.4-8.2 [facility] Sodium [Moles/Vol] 143 mmol/L 136-145 [facility] Triglyceride [Mass/Vol] 87 mg/dL <=150 [facility] Urea nitrogen [Mass/Vol] 25.0 mg/dL High 7.0-18.0 [facility] Urea nitrogen/Creatinine [Mass ratio] 28.7 mg/mg [facility] Laboratory - Hematology and Cell countson 04-30-2024 ESR (Bld) [Velocity] 4 mm/h <=30 [facility] Immature granulocytes/100 WBC (Bld) 0.2 % 0.0-0.5 [facility] Leukocytes [#/volume] correc tyrone for nucleated erythrocytes in Blood by Automated counon 04-30-2024 WBC corrected for nucl RBC Auto (Bld) [#/Vol] Leukocytes [#/volume] corrected for nucleated erythrocytes in Blood by Automated coun 4.0-11.0 [facility] Lymphocytes Auto (Bld) [#/Vo l]on 04-30-2024 Lymphocytes (Bld) [#/Vol] Lymphocytes [#/volume] in Blood by Automated count 1.2-3.8 [facility] Lymphocytes/100 WBC Auto (Bl d)on 04-30-2024 Lymphocytes/100 WBC (Bld) Lymphocytes/100 leukocytes in Blood by Automated count 20.5-60.0 [facility] MCH Auto (RBC) [Entitic mass ]on 04-30-2024 MCH (RBC) [Entitic mass] MCH [Entitic ma ss] by Automated count 26.7-34.0 [facility] MCHC Auto (RBC) [Mass/Vol]on 04-30-2024 MCHC (RBC) [Mass/Vol] MCHC [Mass/volume] by Automated count 29.9-35.2 [facility] MCV Auto (RBC) [Entitic vol] on 04-30-2024 MCV (RBC) [Entitic vol] MCV [Entitic vol ume] by Automated count 81.0-99.0 [facility] Monocytes Auto (Bld) [#/Vol] on 04-30-2024 Monocytes (Bld) [#/Vol] Automated blood monocyte count 0.3-0.8 [facility] Monocytes/100 WBC Auto (Bld) on 04-30-2024 Monocytes/100 WBC (Bld) Automated monocyte % 1. 7-12.0 [facility] Neutrophils Auto (Bld) [#/Vo l]on 04-30-2024 Neutrophils (Bld) [#/Vol] Neutrophils [#/volume] in Blood by Automated count 1.4-6.5 [facility] Neutrophils/100 WBC Auto (Bl d)on 04-30-2024 Neutrophils/100 WBC (Bld) Automated neutrophil % Low 43.0-75.0 [facility] No Panel Informationon 04-30 Eosinophils # (Auto) 0.2 10 3/uL 0.0-0.7 [facility] Immature Granulocyte # (Auto) 0.01 10 3/uL 0.00-0.03 [facility] Platelet mean volume Auto (B ld) [Entitic vol]on 04-30-2024 Platelet mean volume (Bld) [Entitic vol] Platelet mean volume [Entitic volume] in Blood by Automated count Low 9.5-13.5 [facility] Platelets Auto (Bld) [#/Vol] on 04-30-2024 Platelets (Bld) [#/Vol] Platelets [#/vol ume] in Blood by Automated count 150-450 [facility] RBC Auto (Bld) [#/Vol]on RBC (Bld) [#/Vol] Erythrocytes [#/volu me] in Blood by Automated count Low 4.20-5.40 [facility] Serum or plasma albumin/glob ulin mass ratioon 04-30-2024 Albumin/Globulin [Mass ratio] Serum or plasma albumin/globulin mass ratio [facility] Serum or plasma anion gap de terminationon 04-30-2024 Anion gap [Moles/Vol] Serum or plasma an ion gap determination [facility] Serum or plasma total choles terol/high density lipoprotein (HDL) cholesterol mass artie 04-30-2024 Cholesterol.total/Choles terol in HDL [Mass ratio] Serum or plasma total cholesterol/high density lipoprotein (HDL) cholesterol mass [facility] Comment on above: 3.3 - 4.4 LOW RISK4. 4 - 7.1 AVERAGE RISK7.1 - 11.0 MODERATE RISK>11.0 HIGH RISK Basophils Auto (Bld) [#/Vol] on 03-05-2024 Basophils (Bld) [#/Vol] 0.0 10 3/uL 0.0-0.1 [facility] Basophils/100 WBC Auto (Bld) on 03-05-2024 Basophils/100 WBC (Bld) 0.6 % 0.2-2.0 [facility] Eosinophils/100 WBC Auto (Bl d)on 03-05-2024 Eosinophils/100 WBC (Bld) 1.7 % 0.9-7.0 [facility] Erythrocyte distribution wid th Auto (RBC) [Ratio]on 03-05-2024 Erythrocyte distribution width (RBC) [Ratio] 13.7 % 11.0-15.0 [facility] Hematocrit Auto (Bld) [Volum e fraction]on 03-05-2024 Hematocrit (Bld) [Volume fraction] 37.7 % 36.0-48.0 [facility] Hemoglobin [Mass/volume] in Bloodon 03-05-2024 Hemoglobin (Bld) [Mass/Vol] 12.2 g/dL 12.0-16.0 [facility] Iron binding capacity [Mass/ volume] in Serum or Plasmaon 03-05-2024 Iron binding capacity [Mass/Vol] 231.0 ug/dL Low 250.0-450.0 [facility] Iron saturation [Mass Fracti on] in Serum or Plasmaon 03-05-2024 Iron saturation [Mass fraction] 44.6 % [facility] Laboratory - Chemistry and C hemistry - challengeon 03-05-2024 Ferritin [Mass/Vol] 234.0 ng/mL 8.0-252.0 [facility] Iron [Mass/Vol] 103.0 ug/dL 50.0-170.0 [facility] Laboratory - Hematology and Cell countson 03-05-2024 Immature granulocytes/100 WBC (Bld) 0.3 % 0.0-0.5 [facility] Leukocytes [#/volume] correc tyrone for nucleated erythrocytes in Blood by Automated counon 03-05-2024 WBC corrected for nucl RBC Auto (Bld) [#/Vol] 6.9 10 3/uL 4.0-11.0 [facility] Lymphocytes Auto (Bld) [#/Vo l]on 03-05-2024 Lymphocytes (Bld) [#/Vol] 3.8 10 3/uL 1.2-3.8 [facility] Lymphocytes/100 WBC Auto (Bl d)on 03-05-2024 Lymphocytes/100 WBC (Bld) 54.9 % 20.5-60.0 [facility] MCH Auto (RBC) [Entitic mass ]on 03-05-2024 MCH (RBC) [Entitic mass] 31.4 pg 26.7-34.0 [facility] MCHC Auto (RBC) [Mass/Vol]on 03-05-2024 MCHC (RBC) [Mass/Vol] 32.4 g/dL 29.9-35.2 [facility] MCV Auto (RBC) [Entitic vol] on 03-05-2024 MCV (RBC) [Entitic vol] 96.9 fL 81.0-99.0 [facility] Monocytes Auto (Bld) [#/Vol] on 03-05-2024 Monocytes (Bld) [#/Vol] 0.6 10 3/uL 0.3-0.8 [facility] Monocytes/100 WBC Auto (Bld) on 03-05-2024 Monocytes/100 WBC (Bld) 8.7 % 1.7-12.0 [facility] Neutrophils Auto (Bld) [#/Vo l]on 03-05-2024 Neutrophils (Bld) [#/Vol] 2.3 10 3/uL 1.4-6.5 [facility] Neutrophils/100 WBC Auto (Bl d)on 03-05-2024 Neutrophils/100 WBC (Bld) 33.8 % Low 43.0-75.0 [facility] No Panel Informationon 03-05 Eosinophils # (Auto) 0.1 10 3/uL 0.0-0.7 [facility] Immature Granulocyte # (Auto) 0.02 10 3/uL 0.00-0.03 [facility] Platelet mean volume Auto (B ld) [Entitic vol]on 03-05-2024 Platelet mean volume (Bld) [Entitic vol] 8.7 fL Low 9.5-13.5 [facility] Platelets Auto (Bld) [#/Vol] on 03-05-2024 Platelets (Bld) [#/Vol] 289 10 3/uL 150-450 [facility] [facility] RBC Auto (Bld) [#/Vol]on RBC (Bld) [#/Vol] 3.89 10 6/uL Low 4.20-5.40 [facility] Basophils Auto (Bld) [#/Vol] on 12-29-2023 Basophils (Bld) [#/Vol] 0.0 10 3/uL 0.0-0.1 [facility] Basophils/100 WBC Auto (Bld) on 12-29-2023 Basophils/100 WBC (Bld) 0.3 % 0.2-2.0 [facility] Eosinophils/100 WBC Auto (Bl d)on 12-29-2023 Eosinophils/100 WBC (Bld) 0.6 % 0.9-7.0 [facility] Erythrocyte distribution wid th Auto (RBC) [Ratio]on 12-29-2023 Erythrocyte distribution width (RBC) [Ratio] 14.8 % 11.0-15.0 [facility] Hematocrit Auto (Bld) [Volum e fraction]on 12-29-2023 Hematocrit (Bld) [Volume fraction] 39.8 % 36.0-48.0 [facility] Hemoglobin [Mass/volume] in Bloodon 12-29-2023 Hemoglobin (Bld) [Mass/Vol] 12.6 g/dL 12.0-16.0 [facility] Iron binding capacity [Mass/ volume] in Serum or Plasmaon 12-29-2023 Iron binding capacity [Mass/Vol] 241.0 ug/dL 250.0-450.0 [facility] Iron saturation [Mass Fracti on] in Serum or Plasmaon 12-29-2023 Iron saturation [Mass fraction] 51.5 % [facility] Laboratory - Chemistry and C hemistry - challengeon 12-29-2023 Iron [Mass/Vol] 124.0 ug/dL 50.0-170.0 [facility] Laboratory - Hematology and Cell countson 12-29-2023 ESR (Bld) [Velocity] 5 mm/h <=30 [facility] Immature granulocytes/100 WBC (Bld) 0.8 % 0.0-0.5 [facility] Leukocytes [#/volume] correc tyrone for nucleated erythrocytes in Blood by Automated counon 12-29-2023 WBC corrected for nucl RBC Auto (Bld) [#/Vol] 8.9 10 3/uL 4.0-11.0 [facility] Lymphocytes Auto (Bld) [#/Vo l]on 12-29-2023 Lymphocytes (Bld) [#/Vol] 4.4 10 3/uL 1.2-3.8 [facility] Lymphocytes/100 WBC Auto (Bl d)on 12-29-2023 Lymphocytes/100 WBC (Bld) 49.7 % 20.5-60.0 [facility] MCH Auto (RBC) [Entitic mass ]on 12-29-2023 MCH (RBC) [Entitic mass] 31.0 pg 26.7-34.0 [facility] MCHC Auto (RBC) [Mass/Vol]on 12-29-2023 MCHC (RBC) [Mass/Vol] 31.7 g/dL 29.9-35.2 [facility] MCV Auto (RBC) [Entitic vol] on 12-29-2023 MCV (RBC) [Entitic vol] 98.0 fL 81.0-99.0 [facility] Monocytes Auto (Bld) [#/Vol] on 12-29-2023 Monocytes (Bld) [#/Vol] 0.7 10 3/uL 0.3-0.8 [facility] Monocytes/100 WBC Auto (Bld) on 12-29-2023 Monocytes/100 WBC (Bld) 7.3 % 1.7-12.0 [facility] Neutrophils Auto (Bld) [#/Vo l]on 12-29-2023 Neutrophils (Bld) [#/Vol] 3.7 10 3/uL 1.4-6.5 [facility] Neutrophils/100 WBC Auto (Bl d)on 12-29-2023 Neutrophils/100 WBC (Bld) 41.3 % 43.0-75.0 [facility] No Panel Informationon 12-28 Eosinophils # (Auto) 0.1 10 3/uL 0.0-0.7 [facility] Immature Granulocyte # (Auto) 0.07 10 3/uL 0.00-0.03 [facility] Platelet mean volume Auto (B ld) [Entitic vol]on 12-29-2023 Platelet mean volume (Bld) [Entitic vol] 8.3 fL 9.5-13.5 [facility] Platelets Auto (Bld) [#/Vol] on 12-29-2023 Platelets (Bld) [#/Vol] 262 10 3/uL 150-450 [facility] RBC Auto (Bld) [#/Vol]on RBC (Bld) [#/Vol] 4.06 10 6/uL 4.20-5.40 [facility] Basophils Auto (Bld) [#/Vol] on 10-30-2023 Basophils (Bld) [#/Vol] 0.0 10 3/uL 0.0-0.1 [facility] Basophils/100 WBC Auto (Bld) on 10-30-2023 Basophils/100 WBC (Bld) 0.2 % 0.2-2.0 [facility] Blood Mycobacterium tubercul osis tuberculin stimulated gamma interferon detectionon 10-30-2023 M. tuberculosis tuberculin stim IFN-g Ql (Bld) Comment . [facility] Comment on above: QuantiFERON-TB Gold Plus [...] stim IFN-g Ql (Bld) 0.03 [IU]/mL . [facility] Blood mitogen stimulated [place] interferon measurement (units/volume)on 10-30-2023 Mitogen stimulated gamma interferon Qn (Bld) >10.00 [IU]/mL . [facility] Cholesterol in LDL Calc [Mas s/Vol]on 10-30-2023 Cholesterol in LDL [Mass/Vol] 161.0 mg/dL [facility] Comment on above: <100 mg/dl [id number] 0-129 mg/dl NEAR OR ABOVE [id number] mg/dl BORDERLINE [id number] mg/dl HIGH>190 mg/dl VERY HIGH Cholesterol in VLDL Calc [Ma ss/Vol]on 10-30-2023 Cholesterol in VLDL [Mass/Vol] 12.4 mg/dL [facility] Eosinophils/100 WBC Auto (Bl d)on 10-30-2023 Eosinophils/100 WBC (Bld) 0.4 % 0.9-7.0 [facility] Erythrocyte distribution wid th Auto (RBC) [Ratio]on 10-30-2023 Erythrocyte distribution width (RBC) [Ratio] 19.2 % 11.0-15.0 [facility] Estimated glomerular filtrat ion rate (GFR) non- Americanon 10-30-2023 GFR/1.73 sq M.predicted among non-blacks MDRD (S/P/Bld) [Vol rate/Area] mL/min/{1.73_m2} >=60 [facility] Globulin Calc (S) [Mass/Vol] on 10-30-2023 Globulin (S) [Mass/Vol] 3.4 g/dL [facility] Hematocrit Auto (Bld) [Volum e fraction]on 10-30-2023 Hematocrit (Bld) [Volume fraction] 34.9 % 36.0-48.0 [facility] Hemoglobin [Mass/volume] in Bloodon 10-30-2023 Hemoglobin (Bld) [Mass/Vol] 10.8 g/dL 12.0-16.0 [facility] Hepatitis C virus IgG Ab [Pr esence] in Serum or Plasma by Immunoassayon 10-30-2023 HCV IgG IA Ql Non-Reactive Non Reactive [facility] Comment on above: HCV antibody alone d oes not differentiate betweenpreviously resolved infection and active infection.Equivocal and Reactive HCV antibody results should befollowed up with an HCV RNA test to support the diagnosisof active HCV infection. Laboratory - Chemistry and C hemistry - challengeon 10-30-2023 Albumin [Mass/Vol] 2.9 g/dL 3.4-5.0 [facility] ALP [Catalytic activity/Vol] 60 U/L 46-116 [facility] ALT [Catalytic activity/Vol] 24 U/L 14-59 [facility] AST [Catalytic activity/Vol] 10 U/L 15-37 [facility] Bilirubin [Mass/Vol] 0.4 mg/dL 0.2-1.0 [facility] Calcium [Mass/Vol] 8.3 mg/dL 8.5-10.1 [facility] Chloride [Moles/Vol] 102 mmol/L 98-107 [facility] Cholesterol [Mass/Vol] 308 mg/dL <=200 [facility] Cholesterol in HDL [Mass/Vol] 135 mg/dL 40-60 [facility] Comment on above: > or =60 mg/dl - LOW CARDIOVASCULAR RISK<40 mg/dl - HIGH CARDIOVASCULAR RISK CO2 [Moles/Vol] 30.3 mmol/L 21.0-32.0 [facility] Creatinine [Mass/Vol] 0.78 mg/dL 0.55-1.02 [facility] GFR/1.73 sq M.predicted MDRD (S/P/Bld) [Vol rate/Area] mL/min/{1.73_m2} >=60 [facility] Glucose [Mass/Vol] 71 mg/dL 74-106 [facility] Potassium [Moles/Vol] 4.1 mmol/L 3.5-5.1 [facility] Protein [Mass/Vol] 6.3 g/dL 6.4-8.2 [facility] Sodium [Moles/Vol] 140 mmol/L 136-145 [facility] Triglyceride [Mass/Vol] 62 mg/dL <=150 [facility] Urea nitrogen [Mass/Vol] 23.0 mg/dL 7.0-18.0 [facility] Urea nitrogen/Creatinine [Mass ratio] 29.5 mg/mg [facility] Laboratory - Hematology and Cell countson 10-30-2023 ESR (Bld) [Velocity] 21 mm/h <=30 [facility] Immature granulocytes/100 WBC (Bld) 1.8 % 0.0-0.5 [facility] Leukocytes [#/volume] correc tyrone for nucleated erythrocytes in Blood by Automated counon 10-30-2023 WBC corrected for nucl RBC Auto (Bld) [#/Vol] 11.4 10 3/uL 4.0-11.0 [facility] Lymphocytes Auto (Bld) [#/Vo l]on 10-30-2023 Lymphocytes (Bld) [#/Vol] 3.9 10 3/uL 1.2-3.8 [facility] Lymphocytes/100 WBC Auto (Bl d)on 10-30-2023 Lymphocytes/100 WBC (Bld) 34.2 % 20.5-60.0 [facility] MCH Auto (RBC) [Entitic mass ]on 10-30-2023 MCH (RBC) [Entitic mass] 29.4 pg 26.7-34.0 [facility] MCHC Auto (RBC) [Mass/Vol]on 10-30-2023 MCHC (RBC) [Mass/Vol] 30.9 g/dL 29.9-35.2 [facility] MCV Auto (RBC) [Entitic vol] on 10-30-2023 MCV (RBC) [Entitic vol] 95.1 fL 81.0-99.0 [facility] Monocytes Auto (Bld) [#/Vol] on 10-30-2023 Monocytes (Bld) [#/Vol] 0.8 10 3/uL 0.3-0.8 [facility] Monocytes/100 WBC Auto (Bld) on 10-30-2023 Monocytes/100 WBC (Bld) 7.3 % 1.7-12.0 [facility] Mycobacterium tuberculosis s timulated gamma interferon [Interpretation] in Blood Qualon 10-30-2023 M. tuberculosis stim IFN-g Ql (Bld) [Interp] Negative Negative [facility] Comment on above: No response to M tub erculosis antigens detected.Infection with M tuberculosis is unlikely, but high riskindividuals should be considered for additional testing(ATS/IDSA/CDC Clinical Practice Guidelines, 2017). Thereference range is an Antigen minus Nil result of <0.35IU/mL.Chemiluminescence immunoassay methodologyPerformed at: [facility] [id number] Director: Bobby Mckeon PhD, Phone: [phone] Neutrophils Auto (Bld) [#/Vo l]on 10-30-2023 Neutrophils (Bld) [#/Vol] 6.4 10 3/uL 1.4-6.5 [facility] Neutrophils/100 WBC Auto (Bl d)on 10-30-2023 Neutrophils/100 WBC (Bld) 56.1 % 43.0-75.0 [facility] No Panel Informationon 10-29 Eosinophils # (Auto) 0.0 10 3/uL 0.0-0.7 [facility] Hepatitis B Core Total Antibody Negative Negative [facility] Comment on above: Performed at: - [facility] [address] [id number] Director: Bobby Mckeon PhD, Phone: [phone] Immature Granulocyte # (Auto) 0.20 10 3/uL 0.00-0.03 [facility] Miscellaneous Test COMMENT . [facility] Comment on above: Test Ordered: [id number] Hep Be AgHep Be Ag Negative CB Reference Range: NegativePerformed at: [facility] [id number] Director: Bobby Mckeon PhD, Phone: [phone] TB Test (QFT) Incubation See comment . [facility] Comment on above: Incubation performed . Reference Range: . Platelet mean volume Auto (B ld) [Entitic vol]on 10-30-2023 Platelet mean volume (Bld) [Entitic vol] 8.2 fL 9.5-13.5 [facility] Platelets Auto (Bld) [#/Vol] on 10-30-2023 Platelets (Bld) [#/Vol] 287 10 3/uL 150-450 [facility] RBC Auto (Bld) [#/Vol]on RBC (Bld) [#/Vol] 3.67 10 6/uL 4.20-5.40 [facility] Serum or plasma albumin/glob ulin mass ratioon 10-30-2023 Albumin/Globulin [Mass ratio] 0.9 {ratio} [facility] Serum or plasma anion gap de terminationon 10-30-2023 Anion gap [Moles/Vol] 11.8 mmol/L Fi [facility] Serum or plasma total choles terol/high density lipoprotein (HDL) cholesterol mass artie 10-30-2023 Cholesterol.total/Choles terol in HDL [Mass ratio] 2.3 {ratio} [facility] Comment on above: 3.3 - 4.4 LOW RISK4. 4 - 7.1 AVERAGE RISK7.1 - 11.0 MODERATE RISK>11.0 HIGH RISK Whole blood measurement of M ycobacterium tuberculosis stimulated gamma interferon relon 10-30-2023 M. tuberculosis stim IFN-g by CD4+ CD8+ T-cells corrected for background Qn (Bld) 0.03 [IU]/mL . [facility] BASIC METABOLIC PANLon 09-26 Anion gap [Moles/Vol] 8 mmol/L Normal 5-15 [facility] Comment on above: Performed By: #### C BCA, CMP, 1987-12, FEPR, 2276-4, 2284-8, 11712-1, 2132-9, 05024-4, 65293-6, 5130-0, 24731-6, 88259-8, 61711-1, 3357-1, 8092-9, 64039-0, 00611-1, 71965-0, 13677-1, 97335-6 #### [facility] ([id number]) [address], [address] [place] [address] Calcium [Mass/Vol] 7.9 mg/dL Low 8.5-10.5 [facility] Comment on above: Performed By: #### C SHARATH CMP, 1987-12, FEPR, 2276-4, 2284-8, 49995-9, 2132-9, 29589-2, 04309-9, 5130-0, 08036-2, 39802-6, 70146-6, 3357-1, 8092-9, 57709-1, 25132-2, 05360-6, 84426-6, 42249-6 #### [facility] ([id number]) [address], [address] [place] [address] Chloride [Moles/Vol] 103 mmol/L Normal 98-109 [facility] Comment on above: Performed By: #### C BCA, CMP, 1987-12, FEPR, 227-4, 2284-8, 23276-7, 2132-9, 25934-3, 65085-6, 5130-0, 32069-2, 34088-3, 55306-7, 3357-1, 8092-9, 08228-6, 25207-7, 35937-8, 80189-7, 98261-4 #### [facility] ([id number]) [address], [address] [place] [address] CO2 [Moles/Vol] 30 mmol/L Normal 22-32 [facility] Comment on above: Performed By: #### C BCA, CMP, 1987-12, FEPR, 227-4, 2284-8, 62689-8, 2132-9, 66025-1, 80381-2, 5130-0, 60315-3, 84594-8, 93276-8, 3357-1, 8092-9, 03407-2, 65967-1, 15037-9, 18912-9, 54275-7 #### [facility] ([id number]) [address], [address] [place] [address] Creatinine [Mass/Vol] 0.65 mg/dL Normal 0.40-1.00 [facility] Comment on above: Result Comment: METH OD TRACEABLE TO IDMS STANDARD Performed By: #### C BCA, CMP, 1987-, FEPR, 2276-4, 2284-8, 05542-4, 2132-9, 97775-6, 17168-1, 5130-0, 44892-7, 91812-3, 60113-9, 3357-1, 8092-9, 49335-3, 86072-8, 29937-5, 90708-4, 43716-7 #### [facility] ([id number]) [address], [address] [place] [address] eGFR (CKD-EPI) NON-RACE DEPENDENT >90 Normal >59 [facility] Comment on above: Result Comment: Reported eGFR is based on the CKD-EPI 2020 equation that does not use a race coefficient. Performed By: #### C BCA, CMP, 1987-12, FEPR, 2275-4, 2284-8, 53512-0, 2132-9, 54485-0, 46338-1, 5130-0, 53534-8, 77460-8, 71302-3, 3357-1, 8092-9, 71696-2, 66200-9, 95593-6, 15324-1, 54638-5 #### [facility] ([id number]) [address], [address] [place] [address] Glucose [Mass/Vol] 79 mg/dL Normal 65-99 [facility] Comment on above: Performed By: #### C BCA, CMP, 1987-12, FEPR, 2276-4, 2284-8, 68995-1, 2132-9, 09606-8, 92221-7, 5130-0, 55354-4, 31569-1, 77844-9, 3357-1, 8092-9, 70635-2, 11636-0, 84436-5, 35228-9, 47619-8 #### [facility] ([id number]) [address], [address] [place] [address] Potassium [Moles/Vol] 3.9 mmol/L Normal 3.5-5.0 [facility] Comment on above: Performed By: #### C BCA, CMP, 1987-12, FEPR, 2276-4, 2284-8, 46431-5, 2132-9, 33223-8, 01595-5, 5130-0, 48350-1, 23274-2, 02344-5, 3357-1, 8092-9, 02384-0, 71192-6, 18693-9, 09809-8, 82410-5 #### [facility] ([id number]) [address], [address] [place] [address] Sodium [Moles/Vol] 141 mmol/L Normal 134-146 [facility] Comment on above: Performed By: #### C BCA, CMP, 1987-12, FEPR, 2275-4, 2284-8, 94359-2, 2132-9, 40746-5, 45700-9, 5130-0, 26992-6, 63258-0, 88765-1, 3357-1, 8092-9, 83831-6, 53568-9, 93927-8, 65701-0, 87585-4 #### [facility] ([id number]) [address], [address] [place] [address] Urea nitrogen [Mass/Vol] 26 mg/dL Normal 5-27 [facility] Comment on above: Performed By: #### C BCA, CMP, 1987-12, FEPR, 227-4, 2284-8, 61998-5, 2132-9, 93181-2, 91712-2, 5130-0, 88695-0, 23860-0, 09382-9, 3357-1, 8092-9, 30600-8, 74594-7, 29336-1, 21943-1, 17946-3 #### [facility] ([id number]) [address], [address] [place] [address] Basic Metabolic Panelon Anion gap [Moles/Vol] 8 mmol/L 5 - 15 mmol/L [facility] Calcium [Mass/Vol] 7.9 mg/dL Low 8.5 - 10. 5 mg/dL [facility] Chloride [Moles/Vol] 103 mmol/L 98 - 10 9 mmol/L [facility] CO2 [Moles/Vol] 30 mmol/L 22 - 32 mmol/L [facility] Creatinine [Mass/Vol] 0.65 mg/dL 0.40 - 1.00 mg/dL [facility] Comment on above: METHOD TRACEABLE TO IDMN STANDARD eGFR (CKD-EPI)non-race dependent - PINF [facility] Comment on above: Reported eGFR is based on the CKD-EPI 2020 equation that does not use a race coefficient. Glucose [Mass/Vol] 79 mg/dL 65 - 99 mg/dL [facility] Interpretation and review of laboratory results Abnormal [facility] Potassium [Moles/Vol] 3.9 mmol/L 3.5 - 5.0 mmol/L [facility] Sodium [Moles/Vol] 141 mmol/L 134 - 146 mmol/L [facility] Urea nitrogen [Mass/Vol] 26 mg/dL 5 - 27 mg/dL [facility] CBC AND AUTO DIFFon 09-26-19 ABSOLUTE BASOPHIL 0.1 X10E9/L Normal 0.0-0.2 [facility] Comment on above: Performed By: #### C BCA, CMP, 1988-5, FEPR, 2276-4, 2284-8, 25068-0, 2132-9, 22966-7, 31026-4, 5130-0, 30083-5, 56096-2, 81722-5, 3357-1, 8092-9, 65156-7, 56979-0, 92370-9, 36164-7, 02409-6 #### [facility] ([id number]) [address], [address] [place] [address] ABSOLUTE NEUTROPHIL 7.1 X10E9/L High 1.5-6.6 [facility] Comment on above: Performed By: #### C BCA, CMP, 1987-12, FEPR, 2276-4, 2284-8, 20260-7, 2132-9, 71774-2, 83112-2, 5130-0, 18936-7, 12084-6, 25204-1, 3357-1, 8092-9, 55343-6, 16024-4, 11603-8, 54566-1, 16833-0 #### [facility] ([id number]) [address], [address] [place] [address] Basophils/100 WBC (Bld) 0.8 % Normal [facility] Comment on above: Performed By: #### C BCA, CMP, 1987-12, FEPR, 2275-4, 2284-8, 81299-3, 2132-9, 03406-3, 73075-0, 5130-0, 24889-4, 29748-6, 57475-9, 3357-1, 8092-9, 81372-1, 39633-0, 50795-6, 78345-1, 61176-5 #### [facility] ([id number]) [address], [address] [place] [address] Eosinophils (Bld) [#/Vol] 0.0 10*3/uL Normal 0.0-0.4 [facility] Comment on above: Performed By: #### C BCA, CMP, 1987-12, FEPR, 227-4, 2284-8, 13621-7, 2132-9, 45763-2, 15898-0, 5130-0, 79444-4, 55701-4, 10536-4, 3357-1, 8092-9, 48323-3, 62661-7, 49793-7, 51628-7, 72728-7 #### [facility] ([id number]) [address], [address] [place] [address] Eosinophils/100 WBC (Bld) 0.0 % Normal [facility] Comment on above: Performed By: #### C SHARATH, CMP, 1987-12, FEPR, 2276-4, 2284-8, 50774-9, 2132-9, 93324-4, 44729-3, 5130-0, 86830-5, 34556-0, 91682-1, 3357-1, 8092-9, 90517-5, 65699-3, 68787-6, 01270-6, 72390-8 #### [facility] ([id number]) [address] [place] [address] Erythrocyte distribution width (RBC) [Ratio] 14.4 % Normal 11.5-15.0 [facility] Comment on above: Performed By: #### C SHARATH, KELVIN, 1987-12, FEPR, 2275-4, 2284-8, 17022-0, 2132-9, 62165-9, 11456-2, 5130-0, 86206-7, 12322-3, 45568-0, 3357-1, 8092-9, 16883-4, 61864-1, 37213-6, 36096-8, 45296-2 #### [facility] ([id number]) [address], [address] [place] [address] Hematocrit (Bld) [Volume fraction] 24.8 % Low 35-47 [facility] Comment on above: Performed By: #### C SHARATH, CMP, 1987-12, FEPR, 227-4, 2284-8, 30006-7, 2132-9, 62151-9, 44327-7, 5130-0, 61813-4, 76188-4, 78753-4, 3357-1, 8092-9, 16254-2, 27862-6, 78024-9, 02706-2, 23025-1 #### [facility] ([id number]) [address], [address] [place] [address] Hemoglobin (Bld) [Mass/Vol] 8.2 g/dL Low 11.7-15.5 [facility] Comment on above: Performed By: #### C SHARATH, CMP, 1987-12, FEPR, 2276-4, 2284-8, 53183-9, 2132-9, 00811-4, 72456-3, 5130-0, 05494-6, 29992-1, 03015-8, 3357-1, 8092-9, 25076-6, 65862-5, 27037-0, 67866-3, 86615-9 #### [facility] ([id number]) [address], [address] [place] [address] Lymphocytes (Bld) [#/Vol] 2.4 10*3/uL Normal 1.0-3.5 [facility] Comment on above: Performed By: #### C SHARATH, CMP, 1987-12, FEPR, 2275-4, 2284-8, 84012-6, 2132-9, 39569-8, 86197-2, 5130-0, 57372-7, 55203-7, 54342-7, 3357-1, 8092-9, 13373-6, 08170-0, 01630-0, 04721-1, 79888-9 #### [facility] ([id number]) [address] [place] [address] Lymphocytes/100 WBC (Bld) 22.6 % Normal [facility] Comment on above: Performed By: #### C BCA, CMP, 1987-12, FEPR, 2275-4, 2284-8, 37047-1, 2132-9, 13011-9, 51153-8, 5130-0, 69610-2, 44216-1, 81902-5, 3357-1, 8092-9, 21021-0, 51593-6, 38273-6, 96395-7, 75031-4 #### [facility] ([id number]) [address], [address] [place] [address] MCH (RBC) [Entitic mass] 28.5 pg Normal 27-34 [facility] Comment on above: Performed By: #### C BCA, CMP, 1987-12, FEPR, 2276-4, 2284-8, 33456-4, 2132-9, 06896-1, 68151-0, 5130-0, 20839-8, 31074-8, 29705-8, 3357-1, 8092-9, 09290-5, 64712-7, 20790-4, 22156-3, 88757-4 #### [facility] ([id number]) [address] [place] [address] MCHC (RBC) [Mass/Vol] 33.1 g/dL Normal 32-36 [facility] Comment on above: Performed By: #### C BCA, CMP, 1987-12, FEPR, 227-4, 2284-8, 65583-3, 2132-9, 12987-9, 08595-4, 5130-0, 32488-9, 45918-9, 98151-3, 3357-1, 8092-9, 94383-8, 41178-8, 86196-1, 59500-6, 06957-7 #### [facility] ([id number]) [address], [address] [place] [address] MCV (RBC) [Entitic vol] 86 fL Normal 80-100 [facility] Comment on above: Performed By: #### C BCA, CMP, 1987-12, FEPR, 2276-4, 2284-8, 93703-0, 2132-9, 59294-3, 25414-7, 5130-0, 42394-7, 61644-8, 76876-0, 3357-1, 8092-9, 16437-6, 31149-6, 00593-6, 24932-8, 35126-7 #### [facility] ([id number]) [address], [address] [place] [address] Monocytes (Bld) [#/Vol] 1.0 10*3/uL High 0-0.9 [facility] Comment on above: Performed By: #### C BCA, CMP, 1987-12, FEPR, 2276-4, 2284-8, 69994-9, 2132-9, 25795-2, 36406-4, 5130-0, 26957-5, 37683-2, 73323-0, 3357-1, 8092-9, 47921-3, 96246-6, 14437-3, 84660-1, 59673-3 #### [facility] ([id number]) [address], [address] [place] [address] Monocytes/100 WBC (Bld) 9.0 % Normal [facility] Comment on above: Performed By: #### C BCA, CMP, 1987-12, FEPR, 2276-4, 2284-8, 13766-7, 2132-9, 62567-7, 68032-7, 5130-0, 24304-0, 08944-1, 60112-7, 3357-1, 8092-9, 41767-4, 74260-9, 66282-1, 87030-4, 71639-5 #### [facility] ([id number]) [address], [address] [place] [address] Neutrophils/100 WBC (Bld) 67.6 % Normal [facility] Comment on above: Performed By: #### C BCA, CMP, 1987-12, FEPR, 2276-4, 2284-8, 91107-0, 2132-9, 62948-1, 05748-8, 5130-0, 22266-5, 72448-4, 58008-6, 3357-1, 8092-9, 33496-2, 51650-5, 57477-2, 89042-3, 26105-1 #### [facility] ([id number]) [address], [address] [place] [address] Platelet mean volume (Bld) [Entitic vol] 6.4 fL Low 7-12 [facility] Comment on above: Performed By: #### C BCA, CMP, 1987-12, FEPR, 227-4, 2284-8, 31187-7, 2132-9, 32422-6, 22108-5, 5130-0, 51424-0, 41634-6, 19463-8, 3357-1, 8092-9, 70112-2, 56908-8, 79005-6, 30146-4, 79511-9 #### [facility] ([id number]) [address], [address] [place] [address] Platelets (Bld) [#/Vol] 686 10*3/uL High 150-450 [facility] Comment on above: Performed By: #### C BCA, CMP, 1987-12, FEPR, 2275-4, 2284-8, 46252-5, 2132-9, 47044-3, 51296-9, 5130-0, 07683-3, 18801-0, 63761-7, 3357-1, 8092-9, 84400-5, 13101-5, 12369-4, 31381-6, 69005-7 #### [facility] ([id number]) [address], [address] [place] [address] RBC COUNT 2.88 X10E12/L Low 3.80-5.20 [facility] Comment on above: Performed By: #### C BCA, CMP, 1987-12, FEPR, 2276-4, 2284-8, 30979-6, 2132-9, 69030-2, 04663-7, 5130-0, 24371-1, 35211-2, 81334-0, 3357-1, 8092-9, 36773-4, 69917-9, 45981-7, 81682-3, 88504-4 #### [facility] ([id number]) [address] [place] [address], [address] [place] [address] WBC (Bld) [#/Vol] 10.5 10*3/uL Normal 4.0-11.0 [facility] Comment on above: Performed By: #### C BCA, CMP, 1988-5, FEPR, 2276-4, 2284-8, 30209-2, 2132-9, 82023-8, 27210-7, 5130-0, 23461-5, 59928-2, 55404-1, 3357-1, 8092-9, 26651-6, 12447-9, 36792-3, 14858-2, 84591-5 #### [facility] ([id number]) [address] [place] [address], [address] [place] [address] CBC auto differentialon Basophils (Bld) [#/Vol] 0.1 10*3/uL [facility] Basophils/100 WBC (Bld) 0.8 % [facility] Eosinophils (Bld) [#/Vol] 0.0 10*3/uL [facility] [...] 33.1 g/dL 32 - 3 6 g/dL [facility] MCV (RBC) [Entitic vol] 86 fL 80 - 100 fL [facility] Monocytes (Bld) [#/Vol] 1.0 10*3/uL High [facility] Monocytes/100 WBC (Bld) 9.0 % P [facility] Neutrophils (Bld) [#/Vol] 7.1 10*3/uL High [facility] Neutrophils/100 WBC (Bld) 67.6 % [facility] Platelet mean volume (Bld) [Entitic vol] 6.4 fL Low 7 - 12 fL [facility] Platelets (Bld) [#/Vol] 686 10*3/uL High [facility] RBC (Bld) [#/Vol] 2.88 10*6/uL Low [facility] WBC corrected for nucl RBC Auto (Bld) [#/Vol] 10.5 [facility] Clinical Pathology Blood Sme ar Review Clinicalon 09-26-2023 Pathologist review Pathologist comment (Bld) [Interp] NOTE [facility] Comment on above: [facility] [address] [place] [address] Clinical Pathology Report Patient Name:JOSE DAVID:1945 (Age: 78)Gender:FTaken:4Reported:09/26/2023hysician(s):Olga Pan M.D. ([phone])Copy To: Rec. #:[id number]: #[id number] Final Pathologic Diagnosis Peripheral blood smear: Neutrophilic [...] Out 09/26/2023Og Martinez M.D. Interpretation performed at [facility], [address] [place] [address], License number: [id number]. Clinical History R29.9. BLOOD SMEAR EVALUATION CBC (09/23/2023 0818): WBC = 12.1 X10E9/L; HGB = 9.1 g/dL; HCT = 27.8%; MCV = 85 fL; PLT = 924 X10E9/L OTHER LAB DATA: Noncontributory. BLOOD SMEAR: Leukocytes: Neutrophilic leukocytosis with cytotoxic changes and lymphocytopenia. Erythrocytes: Moderate normocytic normochromic anemia. Platelets: Thrombocytosis. Specimen(s) Received Blood Smear Review Fee Codes(s): 1; 87138 JAK2 V617F mutationon 2023 JAK2 gene p.Lph647Sak [employer] Ql (Bld/Tiss) SEE COMMENTS 09/26/2023 10:21 AM [facility] Comment on above: NOTE Test Result Flag Unit RefValue ----- JAK2 V617F Mutation Detection, B JAK2 Result see interpretation JAK2 V617F Mutation Detection, B See Note Peripheral blood, JAK2 V617F mutation analysis: Negative for JAK2 V617F. A negative [id number] test result does not exclude the possibility [...] assay has been determined at 0.06% (see [facility] Interpretive Handbook for method details). This test was developed and its performance characteristics determined by [facility] in a manner consistent with CLIA requirements. This test has not been cleared or approved by the U.S. Food and Drug Administration. Test Performed by: [facility] [place] [address] Mica Miner Blasting: Thierry Duran M.D. Ph.D.; CLIA# [id number] JAK2 gene p.Kzs688Kgc [employer] Ql (Bld/Tiss)on 09-26-2023 [facility] Pathologist review Pathologi st comment (Bld) [Interp]on 09-26-2023 [facility] Surgical Pathologyon 024 [facility] [address] [place] [address] Surgical Pathology Consultation Patient Name:JOSE DAVID:1945 (Age: 78)Gender:FTaken:09/25/19 24Reported:4Phys ician(s):Kristel Reid MD ([phone])Copy To: Rec. #:[id number]: #[id number] Final Pathologic Diagnosis 1. Left temporal artery [...] suggested. Report Electronically Signed Out [facility]/09/26/2023José Luis Pederson MD Interpretation performed at [facility], [facility], [place] [address], License number: [id number]. Clinical History Temporal arteries. Gross Description 1. Received in formalin labeled SEBEWAING, left temporal artery biopsy is a segment of vasculature, 2 x 0.3 cm. The specimen is sectioned to reveal a pinpoint lumen. Are 3 segments of vasculature ranging from 0.5 cm to 1.2 cm in length by 0.2 cm in diameter. The specimen is submitted entirely in a single cassette. (1,ns,[id number], m1) . 2. Received in formalin labeled SEBEWAING, right temporal artery biopsy are 3 segments of vasculature ranging from 0.5 cm to 1.2 cm in length by 0.2 cm in diameter. The segments are sectioned to reveal pinpoint lumens. The specimen are submitted entirely in cassettes A-B. (2,ns,[id number], m1) . 4RG Specimen(s) Received 1: Left temporal artery biopsy 2: Right temporal artery biopsy Fee Codes(s): 1; 37886, 10105 2; 46210, 75440 [facility] [employer] [facility] BCR/ABL by PCR w/ Reflexon 0 09-25-2023 Narrative diagnostic report Martha Tidwell (Bld/Tiss) [Interp] SEE COMMENTS 09/25/2023 04:24 PM [facility] Comment on above: NOTE Test Result Flag Unit RefValue ----- BCR/ABL1 Reflex, Qual/Quant Specimen Type EDTA WHOLE BLOOD BCR/ABL1 Reflex Result see interpretation Interpretation See Note Peripheral blood, BCR/ABL1 mRNA analysis, qualitative: Negative. No BCR/ABL1 mRNA transcripts were detected. Method summary: The presence or absence of BCR/ABL1 mRNA transcripts was evaluated using a qualitative, reverse form building supervisor PCR-based assay. The assay detects nearly all published and theoretical BCR/ABL1 fusion forms including the common e13/e14-a2 (p210) and e1-a2 (p190) transcripts, as well as other rarer variants (e.g. e19-a2 (p230), e13/e14-a3, e1-a3, etc.). The limit of detection for this assay is 0.1%. Please contact the lab at [phone] with questions or if additional testing is required. See [facility] Test Catalog for additional method details. Signing Pathologist: Ammon Titus M.D. (Jane), Ph.D. ADDITIONAL INFORMATION This test was developed and its performance characteristics determined by [facility] in a manner consistent with CLIA requirements. This test has not been cleared or approved by the U.S. Food and Drug Administration. Test Performed by: [place] [address] [employer] Min[employer] Blasting: Thierry Duran M.D. Ph.D.; CLIA# [id number] Narrative diagnostic report [employer] Yaw (Bld/Tiss) [Interp]on 09-25-2023 [facility] Surgical Pathologyon 024 Surgical Pathology Normal [facility] Comment on above: Result Comment: [facility] [address] [place] [address] Surgical Pathology Consultation ADDENDUM DE Patient Name:JOSE DAVID:1945 (Age: 78)Gender:FTaken:4Reported:4Physician(s):Kristel Reid MD ([phone])Copy To: Rec. #:[id number]: #[id number] Final Pathologic Diagnosis 1. Left temporal artery [...] José Luis Pederson MD Interpretation performed at [facility], [address] [place] [address], License number: [id number]. Clinical History Temporal arteries. Gross Description 1. Received in formalin labeled MULUGETA, left temporal artery biopsy is a segment of vasculature, 2 x 0.3 cm. The specimen is sectioned to reveal a pinpoint lumen. Are 3 segments of vasculature ranging from 0.5 cm to 1.2 cm in length by 0.2 cm in diameter. The specimen is submitted entirely in a single cassette. (1,ns,[id number], m1) . 2. Received in formalin labeled MULUGETA, right temporal artery biopsy are 3 segments of vasculature ranging from 0.5 cm to 1.2 cm in length by 0.2 cm in diameter. The segments are sectioned to reveal pinpoint lumens. The specimen are submitted entirely in cassettes A-B. (2,ns,[id number], m1) . /4RG Specimen(s) Received 1: Left temporal artery biopsy 2: Right temporal artery biopsy Fee Codes(s): 1; 02325, 10633 2; 23103, 99201 dRVVT/dRVVT.excess phospholi pid Coag (PPP) [Ratio]on 09-25-2023 dRVVT excess phospholipid Coag Ql (PPP) Negative [facility] ANCAon 09-24-2023 Neutrophil cytoplasmic Ab IF Ql (S) See Below [facility] Comment on above: NOTE TEST [...] See below Reviewed by Arun Tucker, Ph.D D([facility]) This test is used as an aid in diagnosis of patients with autoimmune vasculitidies. The final interpretation should be done in conjunction with ANCA test results and clinical correlation. Test Performed By: [facility] [employer] [address] [place] [address] Track Liner Operator: Meño Hernandez III, M.D. CLIA #[id number]^ BASIC METABOLIC PANLon 09-24 Anion gap [Moles/Vol] 10 mmol/L Normal 5-15 [facility] Comment on above: Performed By: #### C BCA, CMP, 1987-5, FEPR, 2276-4, 2284-8, 55373-7, 2132-9, 50723-4, 94121-0, 8830-0, 77634-8, 82163-3, 44474-7, 3357-1, 8092-9, 22347-7, 53902-7, 21420-0, 31267-4, 37843-2 #### [facility] ([id number]) [address], [address] [place] [address] Calcium [Mass/Vol] 8.5 mg/dL Normal 8.5-10.5 [facility] Comment on above: Performed By: #### C BCA, CMP, 1987-12, FEPR, 2276-4, 2284-8, 53205-4, 2132-9, 55455-3, 87865-9, 5130-0, 77165-2, 80995-7, 22506-7, 3357-1, 8092-9, 85934-9, 76672-2, 65369-1, 32728-6, 89762-2 #### [facility] ([id number]) [address], [address] [place] [address] Chloride [Moles/Vol] 101 mmol/L Normal 98-109 [facility] Comment on above: Performed By: #### C BCA, CMP, 1987-12, FEPR, 2275-4, 2284-8, 61719-0, 2132-9, 24848-8, 84044-8, 5130-0, 88036-7, 34523-5, 30767-9, 3357-1, 8092-9, 86397-5, 04790-8, 78719-6, 16313-7, 26934-5 #### [facility] ([id number]) [address], [address] [place] [address] CO2 [Moles/Vol] 29 mmol/L Normal 22-32 [facility] Comment on above: Performed By: #### C BCA, CMP, 1987-12, FEPR, 2276-4, 2284-8, 86776-0, 2132-9, 45154-1, 66861-5, 5130-0, 85852-8, 17308-4, 00647-6, 3357-1, 8092-9, 30422-5, 34192-1, 32896-7, 48592-3, 60629-8 #### [facility] ([id number]) [address], [address] [place] [address] Creatinine [Mass/Vol] 0.61 mg/dL Normal 0.40-1.00 [facility] Comment on above: Result Comment: METH OD TRACEABLE TO IDMS STANDARD Performed By: #### C BCA, CMP, 1987-12, FEPR, 2276-4, 2284-8, 36447-6, 2132-9, 29209-4, 74458-9, 5130-0, 42512-7, 42728-0, 37542-3, 3357-1, 8092-9, 54526-8, 17785-4, 57694-8, 72204-4, 61934-8 #### [facility] ([id number]) [address] [place] [address], [address] [place] [address] eGFR (CKD-EPI) NON-RACE DEPENDENT >90 Normal >59 [facility] Comment on above: Result Comment: Reported eGFR is based on the CKD-EPI 2020 equation that does not use a race coefficient. Performed By: #### C BCA, CMP, 1987-12, FEPR, 2275-4, 2284-8, 59917-6, 2132-9, 58483-3, 97031-9, 5130-0, 05610-6, 73906-5, 63831-6, 3357-1, 8092-9, 88400-1, 13405-2, 55653-6, 69104-4, 72184-7 #### [facility] ([id number]) [address] [place] [address], [address] [place] [address] Glucose [Mass/Vol] 98 mg/dL Normal 65-99 [facility] Comment on above: Performed By: #### C BCA, CMP, 1988-5, FEPR, 2276-4, 2284-8, 99117-8, 2132-9, 66528-7, 52584-7, 5130-0, 08781-4, 56260-9, 53372-3, 3357-1, 8092-9, 59917-8, 48614-6, 72758-7, 63737-6, 22471-1 #### [facility] ([id number]) [address], [address] [place] [address] Potassium [Moles/Vol] 3.5 mmol/L Normal 3.5-5.0 [facility] Comment on above: Performed By: #### C SHARATH, CMP, 1987-12, FEPR, 2276-4, 2284-8, 73617-3, 2132-9, 94870-3, 20583-7, 5130-0, 26649-3, 98673-2, 37240-8, 3357-1, 8092-9, 81690-2, 79892-0, 24049-2, 94424-5, 94136-0 #### [facility] ([id number]) [address], [address] [place] [address] Sodium [Moles/Vol] 140 mmol/L Normal 134-146 [facility] Comment on above: Performed By: #### C BCA, CMP, 1987-12, FEPR, 6-4, 2284-8, 88663-7, 2132-9, 84897-4, 34563-6, 5130-0, 89661-6, 07757-3, 06259-4, 3357-1, 8092-9, 22160-0, 60882-2, 75038-6, 28895-2, 24679-8 #### [facility] ([id number]) [address], [address] [place] [address] Urea nitrogen [Mass/Vol] 22 mg/dL Normal 5-27 [facility] Comment on above: Performed By: #### C BCA, CMP, 1987-12, FEPR, 6-4, 4-8, 15032-5, 2131-9, 57408-4, 80324-1, 5130-0, 57372-4, 40269-5, 70089-3, 3357-1, 8092-9, 94451-1, 31632-7, 69130-1, 20585-4, 24989-8 #### [facility] ([id number]) [address], [address] [place] [address] Basic Metabolic Panelon 08-27 Anion gap [Moles/Vol] 10 mmol/L 5 - 15 mmol/L [facility] Calcium [Mass/Vol] 8.5 mg/dL 8.5 - 10. 5 mg/dL [facility] Chloride [Moles/Vol] 101 mmol/L 98 - 10 9 mmol/L [facility] CO2 [Moles/Vol] 29 mmol/L 22 - 32 mmol/L [facility] Creatinine [Mass/Vol] 0.61 mg/dL 0.40 - 1.00 mg/dL [facility] Comment on above: METHOD TRACEABLE TO IDMN STANDARD eGFR (CKD-EPI)non-race dependent - PINF [facility] Comment on above: Reported eGFR is based on the CKD-EPI 2020 equation that does not use a race coefficient. Glucose [Mass/Vol] 98 mg/dL 65 - 99 mg/dL [facility] Potassium [Moles/Vol] 3.5 mmol/L 3.5 - 5.0 mmol/L [facility] Sodium [Moles/Vol] 140 mmol/L 134 - 146 mmol/L [facility] Urea nitrogen [Mass/Vol] 22 mg/dL 5 - 27 mg/dL [facility] CBC AND AUTO DIFFon 09-24-19 24 ABSOLUTE BASOPHIL 0.1 X10E9/L Normal 0.0-0.2 [facility] Comment on above: Performed By: #### C BCA, CMP, 1987-12, FEPR, 6-4, 4-8, 05421-8, 9, 18523-8, 66012-2, 5130-0, 17474-5, 88446-7, 10269-6, 3357-1, 8092-9, 37611-8, 46209-4, 91642-1, 02597-4, 59055-0 #### [facility] ([id number]) [address] [place] [address] ABSOLUTE NEUTROPHIL 16.3 X10E9/L High 1.5-6.6 [facility] Comment on above: Performed By: #### C BCA, CMP, 1987-12, FEPR, 2276-4, 2284-8, 99393-4, 2132-9, 98911-9, 66496-7, 5130-0, 49045-2, 36943-1, 25105-0, 3357-1, 8092-9, 71923-5, 59952-1, 21742-0, 61846-8, 18616-1 #### [facility] ([id number]) [address], [address] [place] [address] Basophils/100 WBC (Bld) 0.5 % Normal P [facility] Comment on above: Performed By: #### C BCA, CMP, 1987-12, FEPR, 2275-4, 2284-8, 13335-7, 2132-9, 91264-1, 25531-7, 5130-0, 54678-4, 66316-3, 31272-0, 3357-1, 8092-9, 17381-6, 70655-3, 12491-9, 34450-5, 92044-8 #### [facility] ([id number]) [address], [address] [place] [address] Eosinophils (Bld) [#/Vol] 0.0 10*3/uL Normal 0.0-0.4 [facility] Comment on above: Performed By: #### C BCA, CMP, 1987-12, FEPR, 227-4, 2284-8, 21670-9, 2132-9, 93295-7, 92614-4, 5130-0, 68594-2, 24746-0, 95929-1, 3357-1, 8092-9, 34488-0, 94507-7, 81355-7, 27592-3, 71643-8 #### [facility] ([id number]) [address], [address] [place] [address] Eosinophils/100 WBC (Bld) 0.0 % Normal [facility] Comment on above: Performed By: #### C BCA, CMP, 1987-12, FEPR, 2275-4, 2284-8, 21723-4, 2132-9, 63623-5, 93474-6, 5130-0, 34928-4, 88283-5, 82478-9, 3357-1, 8092-9, 83740-1, 38984-1, 84614-7, 51869-6, 92072-7 #### [facility] ([id number]) [facility], [address] [place] [address] Erythrocyte distribution width (RBC) [Ratio] 14.8 % Normal 11.5-15.0 [facility] Comment on above: Performed By: #### C BCA, CMP, 1987-12, FEPR, 2275-4, 4-8, 33882-4, 2132-9, 30648-3, 03930-4, 5130-0, 67044-3, 56182-9, 93874-8, 3357-1, 8092-9, 86563-2, 09837-7, 06033-1, 50142-3, 23859-2 #### [facility] ([id number]) [facility] [address] [place] [address] Hematocrit (Bld) [Volume fraction] 25.6 % Low 35-47 [facility] Comment on above: Performed By: #### C BCA, CMP, 1987-12, FEPR, 2276-4, 2284-8, 29163-4, 2132-9, 42867-6, 44712-1, 5130-0, 64715-6, 57529-5, 88068-1, 3357-1, 8092-9, 03382-2, 64108-8, 91307-8, 58675-9, 90050-9 #### [facility] ([id number]) [address], [address] [place] [address] Hemoglobin (Bld) [Mass/Vol] 8.3 g/dL Low 11.7-15.5 [facility] Comment on above: Performed By: #### C SHARATH, CMP, 1987-12, FEPR, 2275-4, 2284-8, 50291-9, 2132-9, 68826-7, 39404-7, 5130-0, 83679-7, 91481-6, 59618-4, 3357-1, 8092-9, 50035-2, 22375-5, 50009-1, 41820-5, 49678-8 #### [facility] ([id number]) [address], [address] [place] [address] Lymphocytes (Bld) [#/Vol] 1.6 10*3/uL Normal 1.0-3.5 [facility] Comment on above: Performed By: #### C SHARATH, CMP, 1987-12, FEPR, 2275-4, 2284-8, 81213-3, 2132-9, 88352-8, 47171-4, 5130-0, 48990-8, 24135-5, 00495-2, 3357-1, 8092-9, 47509-2, 00091-1, 39416-0, 01976-4, 73561-2 #### [facility] ([id number]) [address] [place] [address] Lymphocytes/100 WBC (Bld) 8.3 % Normal [facility] Comment on above: Performed By: #### C BCA, CMP, 1987-12, FEPR, 2276-4, 2284-8, 62765-0, 2132-9, 15086-4, 26014-4, 5130-0, 61093-5, 69036-3, 65433-2, 3357-1, 8092-9, 52583-2, 54118-5, 85041-1, 11988-1, 89548-4 #### [facility] ([id number]) [address], [address] [place] [address] MCH (RBC) [Entitic mass] 27.8 pg Normal 27-34 [facility] Comment on above: Performed By: #### C SHARATH, CMP, 1987-12, FEPR, 2276-4, 2284-8, 20424-2, 2132-9, 59154-8, 31375-9, 5130-0, 78923-3, 35805-1, 37839-9, 3357-1, 8092-9, 07478-2, 42036-7, 94150-6, 46844-5, 13586-9 #### [facility] ([id number]) [address], [address] [place] [address] MCHC (RBC) [Mass/Vol] 32.5 g/dL Normal 32-36 [facility] Comment on above: Performed By: #### C SHARATH, CMP, 1987-12, FEPR, 2275-4, 2284-8, 52720-3, 2132-9, 91514-7, 94199-2, 5130-0, 65839-8, 47721-2, 39438-0, 3357-1, 8092-9, 57032-2, 71456-8, 51590-0, 22677-9, 87953-8 #### [facility] ([id number]) [address], [address] [place] [address] MCV (RBC) [Entitic vol] 85 fL Normal 80-100 [facility] Comment on above: Performed By: #### C BCA, CMP, 1987-12, FEPR, 2276-4, 2284-8, 79666-1, 2132-9, 57640-5, 13129-5, 5130-0, 32861-9, 35022-1, 16216-5, 3357-1, 8092-9, 77467-8, 05119-1, 15062-4, 34075-9, 73022-3 #### [facility] ([id number]) [address], [address] [place] [address] Monocytes (Bld) [#/Vol] 1.0 10*3/uL High 0-0.9 [facility] Comment on above: Performed By: #### C SHARATH, CMP, 1987-12, FEPR, 2276-4, 2284-8, 07961-9, 2132-9, 60223-0, 85162-8, 5130-0, 57401-5, 42233-5, 89769-1, 3357-1, 8092-9, 58007-0, 77731-4, 29548-5, 54455-9, 81808-3 #### [facility] ([id number]) [address], [address] [place] [address] Monocytes/100 WBC (Bld) 5.0 % Normal [facility] Comment on above: Performed By: #### C BCA, CMP, 1987-12, FEPR, 2276-4, 2284-8, 24405-3, 2132-9, 10465-6, 12094-5, 5130-0, 19178-0, 46920-4, 99291-0, 3357-1, 8092-9, 18264-1, 65823-0, 78388-7, 64299-7, 32504-8 #### [facility] ([id number]) [address] [place] [address] Neutrophils/100 WBC (Bld) 86.2 % Normal [facility] Comment on above: Performed By: #### C BCA, CMP, 1987-12, FEPR, 2276-4, 2284-8, 51982-6, 2132-9, 42701-8, 98750-2, 5130-0, 04366-2, 77820-3, 88780-1, 3357-1, 8092-9, 28889-1, 36812-1, 12703-4, 14127-8, 76133-3 #### [facility] ([id number]) [address], [address] [place] [address] Platelet mean volume (Bld) [Entitic vol] 6.5 fL Low 7-12 [facility] Comment on above: Performed By: #### C BCA, CMP, 1987-12, FEPR, 2276-4, 2284-8, 17637-9, 2132-9, 05568-8, 95397-5, 5130-0, 08946-0, 75169-3, 70950-9, 3357-1, 8092-9, 62335-7, 89221-7, 78385-4, 64238-8, 43116-6 #### [facility] ([id number]) [address], [address] [place] [address] Platelets (Bld) [#/Vol] 902 10*3/uL High 150-450 [facility] Comment on above: Performed By: #### C BCA, CMP, 1987-12, FEPR, 2276-4, 2284-8, 57214-6, 2132-9, 88678-2, 94566-3, 5130-0, 86716-9, 50835-3, 16065-8, 3357-1, 8092-9, 07268-9, 11776-3, 01240-3, 08417-3, 55665-7 #### [facility] ([id number]) [address], [address] [place] [address] RBC COUNT 3.00 X10E12/L Low 3.80-5.20 [facility] Comment on above: Performed By: #### C SHARATH, [facility], 1987-, FEPR, 2276-4, 2284-8, 01744-8, 2132-9, 25427-7, 81609-7, 5130-0, 72030-1, 86827-2, 33022-8, 3357-1, 8092-9, 66919-6, 66058-3, 45650-5, 58802-7, 68518-3 #### [facility] ([id number]) [address] [place] [address] WBC (Bld) [#/Vol] 18.9 10*3/uL High 4.0-11.0 [facility] Comment on above: Performed By: #### C SHARATH, [facility], 1987-12, FEPR, 2276-4, 2284-8, 88428-1, 2132-9, 26059-1, 71994-7, 5130-0, 16456-6, 31116-5, 72212-4, 3357-1, 8092-9, 37930-9, 13211-6, 18557-3, 03234-2, 19591-9 #### [facility] ([id number]) [address] [place] [address] CBC auto differentialon 08-27 Basophils (Bld) [#/Vol] 0.1 10*3/uL [facility] Basophils/100 WBC (Bld) 0.5 % [facility] Eosinophils (Bld) [#/Vol] 0.0 10*3/uL [facility] Eosinophils/100 WBC (Bld) 0.0 % [facility] Erythrocyte distribution width (RBC) [Ratio] 14.8 % 11.5 - 15.0 % [facility] Hematocrit (Bld) [Volume fraction] 25.6 % Low 35 - 47 % [facility] Hemoglobin (Bld) [Mass/Vol] 8.3 g/dL Low 11.7 - 15.5 g/dL [facility] Interpretation and review of laboratory results Abnormal [facility] Lymphocytes (Bld) [#/Vol] 1.6 10*3/uL [facility] Lymphocytes/100 WBC (Bld) 8.3 % [facility] MCH (RBC) [Entitic mass] 27.8 pg 27 - 34 pg [facility] MCHC (RBC) [Mass/Vol] 32.5 g/dL 32 - 3 6 g/dL [facility] MCV (RBC) [Entitic vol] 85 fL 80 - 100 fL [facility] Monocytes (Bld) [#/Vol] 1.0 10*3/uL High [facility] Monocytes/100 WBC (Bld) 5.0 % [place] Neutrophils (Bld) [#/Vol] 16.3 10*3/uL High [facility] Neutrophils/100 WBC (Bld) 86.2 % [facility] Platelet mean volume (Bld) [Entitic vol] 6.5 fL Low 7 - 12 fL [facility] Platelets (Bld) [#/Vol] 902 10*3/uL High [facility] RBC (Bld) [#/Vol] 3.00 10*6/uL Low [facility] WBC corrected for nucl RBC Auto (Bld) [#/Vol] 18.9 High [facility] Cardiac echo study Procedure Ordered By: Nacho Grant on 09-24-2023 Aortic root 2.80 cm [facility] Work Phone: AV mean gradient 6.00 mmHg [facility] Work Phone: AV peak gradient 8.64 mmHg [facility] Work Phone: AV peak kym 147.00 cm/s [facility] Work Phone: AV valve area 1.95 cm2 [facility] Work Phone: AV Velocity Ratio 0.77 [facility] Work Phone: AV VTI 33.60 cm [facility] Work Phone: E wave deceleration time 187.00 msec [employer] Work Phone: [phone] E/A ratio 0.72 [employer] Work Phone: [phone] Echo EF Estimated 63 % [facility] Work Phone: [phone] EF 63 % [employer] Work Phone: [phone] Energy loss index 1.88 [facility] Work Phone: [phone] FS 33 % 28 - 44 % [employer] Work Phone: [phone] Interventricular Septum Diastolic Thickness by 2D 10 cm [employer] Work Phone: [phone] IVS 1.00 cm 0.6 - 1.1 cm [employer] Work Phone: [phone] LA size 3.60 cm [employer] Work Phone: [phone] LA volume 48.00 cm3 [employer] Work Phone: [phone] LA Volume Index 31.8 mL/m2 [employer] Work Phone: [phone] Left Ventricle Mass [id number] g [facility] Work Phone: [phone] LV Diastolic Volume 71.20 mL [employer] Work Phone: [phone] LV ESV A2C 56.30 mL [employer] Work Phone: [phone] LV ESV A4C 33.20 mL [employer] Work Phone: [phone] LV RWT 2D 51.28 [employer] Work Phone: [phone] LV Systolic Volume 26.00 mL [employer] Work Phone: [phone] LVIDd 3.90 cm 3.78 - 5.25 cm [employer] Work Phone: [phone] LVIDs 2.60 cm 2.25 - 3.40 cm [employer] Work Phone: [phone] LVOT diameter 1.80 cm [employer] Work Phone: [phone] LVOT peak kym 1.37 m/s [employer] Work Phone: [phone] LVOT peak VTI 25.80 cm [employer] Work Phone: [phone] [facility] stroke [facility]: [phone] MV Peak A Kym 99.40 cm/s [facility] Phone: [phone] MV Peak E Kym 71.30 cm/s [facility] Work Phone: [phone] MV pressure 1/2 time 55.00 ms [facility]: [phone] MV TDI E' (medial) 6.85 cm/s [facility] Work Phone: [phone] MV valve area p 1/2 method 4.00 cm2 [facility] Work Phone: [phone] PV peak gradient 4.16 mmHg [employer] Work Phone: [phone] PW 1.00 cm 0.6 - 1.1 cm [facility] Work Phone: [phone] RV diastolic dimension (basal) 29.0 mm [employer] Work Phone: [phone] TAPSE 1.88 cm [employer] Work Phone: [phone] TDI 9.68 cm/s [employer] Work Phone: Valve area - Index 1.3 [employer] Work Phone: ZLVIDD [phone] [employer] Work Phone: ZLVIDS -0.48 [employer] Work Phone: [phone] [employer] Work Phone: Cardiac echo study Procedure on [...] observation (narrative) [facility] MR BRAIN W WO CONTon 024 MR [...] of the major arterial structures in the [place]. The paranasal sinuses are clear. [...] Jewell MD on 09/24/2023 4:24 AM Normal [facility] MR Brain WO and W contrast Raisa Shearer 09-24-2023 MR BRAIN W WO CONT CLINICAL [...] of the major arterial structures in the [place]. The paranasal sinuses are clear. [...] Gilbert Jewell MD on 09/24/2023 4:24 AM SECTRAPAGilbert Lamb M D - 09/24/2023 MR BRAIN [...] of the major arterial structures in the [place]. The paranasal sinuses are clear. [...] Gilbert Jewell MD on 09/24/2023 4:24 AM [facility] Radiology Study observation (narrative) [facility] MR ORBIT W WO CONTon 024 MR [...] of the major arterial structures in the [place]. The paranasal sinuses are clear. [...] a nonspecific finding. Approved by Resident Sathish Chralton DO on 09/24/2023 4:18 AM Gilbert Kline MD have personally reviewed the image(s) and agree with and/or edited the report Finalized by Gilbert Jewell MD on 09/24/2023 4:25 AM Normal [facility] MR Orbit WO and W contrast I [...] of the major arterial structures in the [place]. The paranasal sinuses are clear. [...] Gilbert Jewell MD on 09/24/2023 4:25 AM SECTRAPAGilbert Lamb M D - 09/24/2023 EXAM:MR ORBIT W [...] of the major arterial structures in the [place]. The paranasal sinuses are clear. [...] Gilbert Jewell MD on 09/24/2023 4:25 AM [facility] Radiology Study observation (narrative) [facility] MR Orbit WO and W contrast I VOrdered By: Gilbert Jewell on 09-24-2023 [facility] Work Phone: Neutrophil cytoplasmic Ab IF Ql (S)on 09-24-2023 [facility] Reticulocyteson 09-24-2023 Reticulocytes/100 RBC (Bld) 2.3 % High 0.4 - 2.2 % [facility] Reticulocytes/100 RBC (Bld)o n 09-24-2023 Interpretation and review of laboratory results Abnormal [facility] RETICULOCYTE COUNT 2.3 % High 0.4-2.2 [facility] Comment on above: Performed By: #### C SHARATH, CMP, 1987-12, FEPR, 2276-4, 2284-8, 09642-1, 2132-9, 71190-3, 81989-7, 5130-0, 73127-8, 40387-0, 24591-5, 3357-1, 8092-9, 48001-3, 01899-4, 34555-4, 91935-0, 28172-5 #### [facility] ([id number]) [address], [address] [place] [address] ACUTE HEPATITIS PANELon 08-27 ANTI HCV W/PCR REFLX Non-Reactive Normal NRCT [facility] Comment on above: Result Comment: If recent infection suspected, recommend repeat testing (>2 months). Jyfouy-sb-pwfqjh ratio is <0.80. Performed By: #### C BCA, CMP, 1987-12, FEPR, 2276-4, 2284-8, 95741-2, 2132-9, 31377-5, 34779-7, 5130-0, 58536-5, 36593-2, 34991-5, 3357-1, 8092-9, 52859-4, 23486-7, 73517-9, 65675-2, 87214-8 #### [facility] ([id number]) [address], [address] [place] [address] HEPATITIS A IGM Non-Reactive Normal [facility] Comment on above: Performed By: #### C BCA, CMP, 1987-12, FEPR, 2276-4, 2284-8, 03578-5, 2132-9, 76620-8, 28613-0, 5130-0, 02062-5, 09913-0, 04599-7, 3357-1, 8092-9, 58004-5, 65740-9, 35315-0, 06597-0, 18870-2 #### [facility] ([id number]) [address], [address] [place] [address] HEPATITIS B CORE IGM Negative Normal NEG [facility] Comment on above: Performed By: #### C BCA, CMP, 1987-12, FEPR, 227-4, 2284-8, 65302-8, 2132-9, 41785-1, 56016-6, 5130-0, 41425-3, 07147-8, 50709-1, 3357-1, 8092-9, 55001-8, 38851-1, 97595-0, 06146-8, 35496-9 #### [facility] ([id number]) [address], [address] [place] [address] HEPATITIS B SURF AG Negative Normal NEG [facility] Comment on above: Performed By: #### C BCA, CMP, 1987-12, FEPR, 2276-4, 2284-8, 71152-6, 2132-9, 87502-9, 47700-3, 5130-0, 82981-4, 05370-2, 35261-1, 3357-1, 8092-9, 37437-2, 45449-4, 00052-8, 87524-2, 53684-5 #### [facility] ([id number]) [address], [address] [place] [address] SILVIA Screen w/ Reflexon 09-23 Nuclear Ab IA Ql (S) Positive Abnormal Negativ e^Ne [facility] Comment on above: Testing performed using multiplex flow immunoassay. Eleven different antigens associated with systemic autoimmune diseases (dsDNA,Sm,Sm/AUTOMOTIVE GLASS INSTALLER,AUTOMOTIVE GLASS INSTALLER,Chromatin, SSA,SSB,Tiki-1,Scl70,Ribo P,Centromere B) are included in this screening test. ANTI CARDIOLIPIN AB IGG IGA IGMon 09-23-2023 MIRIAM IgA <2.0 Normal 0-19.9 [facility] Comment on above: Performed By: #### C SHARATH, CMP, 1987-12, FEPR, 2276-4, 2284-8, 48762-1, 2132-9, 42101-4, 02852-9, 5130-0, 78490-6, 34631-5, 57010-9, 3357-1, 8092-9, 96557-9, 22738-1, 68190-9, 23050-8, 55338-7 #### [facility] ([id number]) [address] [place] [address], [address] [place] [address] MIRIAM IgG <1.6 Normal 0-19.9 [facility] Comment on above: Performed By: #### C SHARATH, CMP, 1987-12, FEPR, 2276-4, 2284-8, 37312-0, 2132-9, 27069-3, 43248-3, 5130-0, 79820-2, 92442-5, 60094-2, 3357-1, 8092-9, 74144-2, 93375-1, 08183-1, 39216-0, 61394-3 #### [facility] ([id number]) [address] [place] [address], [address] [place] [address] MIRIAM IgM <1.5 Normal 0-19.9 [facility] Comment on above: Performed By: #### C BCA, CMP, 1987-12, FEPR, 2276-4, 2284-8, 35994-8, 213-9, 10507-7, 46503-2, 5130-0, 57368-9, 29248-6, 50220-0, 3357-1, 8092-9, 48030-4, 06427-5, 03683-5, 85466-5, 95554-6 #### [facility] ([id number]) [address], [address] [place] [address] Anileridine Ql (U)on 024 JO1 ANTIBODY <0.2 Normal <1.0 [facility] Comment on above: Performed By: #### C BCA, CMP, 1987-5, FEPR, 2276-4, 2284-8, 31824-7, 2131-9, 83246-9, 62929-0, 5130-0, 85545-6, 74240-6, 12674-1, 3357-1, 8092-9, 03526-9, 92146-7, 94232-5, 92853-7, 03992-9 #### [facility] ([id number]) [address], [address] [place] [address] Anti cardiolipin AB IgG IgA IgMon 09-23-2023 Cardiolipin IgA IA Qn (S) [facility] Cardiolipin IgG IA Qn (S) [facility] Cardiolipin IgM IA Qn (S) [facility] Anti-Chromatin IGGon 024 Chromatin Ab Ql 0.4 [facility] Comment on above: CLIA ID [id number] Anti-DNA antibody, double-st randedon 09-23-2023 DNA double strand Ab Qn (S) 1 [IU]/mL [facility] Comment on above: Interpretation-------- <5 Negative 5-9 Indeterminate >9 Positive CLIA ID [id number] Anti-Ribosomal P AB IGGon Ribosomal P IgG Qn (S) [facility] Comment on above: CLIA ID [id number] Anti-Mejia AB IGGon 09-23-19 Mejia extractable nuclear IgG Qn (S) [facility] Comment on above: CLIA ID [id number] BETA-2 GP1 AB PANELon 2023 BETA-2 GP1 IgA <2.0 Normal 0.0-19.9 [facility] Comment on above: Performed By: #### C BCA, CMP, 1987-12, FEPR, 2276-4, 2284-8, 55069-9, 2131-9, 21759-0, 31823-1, 5130-0, 42347-8, 19969-2, 72694-1, 3357-1, 8092-9, 78128-8, 90594-4, 31791-5, 62751-4, 59704-3 #### [facility] ([id number]) [address], [address] [place] [address] BETA-2 GP1 IgG <1.4 Normal 0.0-19.9 [facility] Comment on above: Performed By: #### C BCA, [facility], 1987-12, FEPR, 2276-4, 2284-8, 70685-9, 2131-9, 57974-8, 26660-9, 5130-0, 78453-2, 66873-9, 00777-2, 3357-1, 8092-9, 71663-6, 03016-0, 55178-4, 42071-7, 09155-5 #### [facility] ([id number]) [address] [place] [address], [address] [place] [address] BETA-2 GP1 IgM 4.1 u/mL Normal 0.0-19.9 [facility] Comment on above: Performed By: #### C BCA, CMP, 1987-12, FEPR, 2276-4, 2284-8, 09717-4, 2132-9, 11060-1, 71409-9, 5130-0, 50700-8, 90568-4, 21641-7, 3357-1, 8092-9, 71475-4, 35909-7, 52439-6, 84617-8, 68620-9 #### [facility] ([id number]) [address], [address] [place] [address] Beta-2 glycoprotein antibodi eson 09-23-2023 Beta 2 glycoprotein 1 IgA IA Qn u/mL 0.0 - 19.9 u/mL [facility] Beta 2 glycoprotein 1 IgG IA Qn u/mL 0.0 - 19.9 u/mL [facility] Beta 2 glycoprotein 1 IgM IA Qn 4.1 u/mL 0.0 - 19.9 u/mL [facility] C-reactive proteinon 024 CRP [Mass/Vol] 13.3 mg/dL High 0.000 - 0.744 mg/dL [facility] CBC AND AUTO DIFFon 09-23-19 24 ABSOLUTE BASOPHIL 0.0 X10E9/L Normal 0.0-0.2 [facility] Comment on above: Performed By: #### C SHARATH, CMP, 1987-12, FEPR, 2276-4, 2284-8, 30477-6, 2-9, 91663-5, 60765-2, 5130-0, 71415-8, 65275-7, 65240-6, 3357-1, 8092-9, 71262-8, 41007-8, 67588-9, 54763-1, 05281-0 #### [facility] ([id number]) [facility], [address] [place] [address] ABSOLUTE NEUTROPHIL 11.5 X10E9/L High 1.5-6.6 [facility] Comment on above: Performed By: #### C BCA, CMP, 1987-12, FEPR, 2276-4, 2284-8, 46938-0, 2132-9, 07091-4, 72850-5, 5130-0, 66647-3, 31355-4, 34291-5, 3357-1, 8092-9, 06537-3, 92881-4, 90281-1, 16329-0, 62728-8 #### [facility] ([id number]) [address], [address] [place] [address] Basophils/100 WBC (Bld) 0.2 % Normal [facility] Comment on above: Performed By: #### C BCA, CMP, 1987-12, FEPR, 2275-4, 2284-8, 72786-2, 2132-9, 76692-1, 23172-7, 5130-0, 25196-5, 33104-2, 99183-3, 3357-1, 8092-9, 26475-5, 08093-8, 51943-2, 89166-7, 31414-2 #### [facility] ([id number]) [address], [address] [place] [address] Eosinophils (Bld) [#/Vol] 0.0 10*3/uL Normal 0.0-0.4 [facility] Comment on above: Performed By: #### C BCA, CMP, 1987-12, FEPR, 2275-4, 4-8, 71818-8, 2131-9, 54474-5, 41479-9, 5130-0, 13874-1, 89934-2, 87465-9, 3357-1, 8092-9, 31047-6, 21838-4, 67476-5, 41879-8, 40241-5 #### [facility] ([id number]) [address], [address] [place] [address] Eosinophils/100 WBC (Bld) 0.0 % Normal [facility] Comment on above: Performed By: #### C BCA, CMP, 1987-12, FEPR, 2275-4, 2283-8, 50813-2, 2132-9, 56742-0, 93514-9, 5130-0, 41924-6, 59117-6, 25790-9, 3357-1, 8092-9, 03484-5, 22961-8, 54759-8, 99123-1, 28863-3 #### [facility] ([id number]) [address], [address] [place] [address] Erythrocyte distribution width (RBC) [Ratio] 14.4 % Normal 11.5-15.0 [facility] Comment on above: Performed By: #### C BCA, CMP, 1987-12, FEPR, 2276-4, 2284-8, 88856-0, 2132-9, 84385-8, 88991-6, 5130-0, 87890-9, 14175-1, 32392-8, 3357-1, 8092-9, 37361-5, 70291-8, 49877-7, 10124-6, 83899-1 #### [facility] ([id number]) [address] [place] [address] Hematocrit (Bld) [Volume fraction] 27.8 % Low 35-47 [facility] Comment on above: Performed By: #### C BCA, CMP, 1987-12, FEPR, 2276-4, 2284-8, 94496-7, 2132-9, 02268-7, 95682-3, 5130-0, 98733-9, 59972-0, 07599-2, 3357-1, 8092-9, 61865-5, 57734-0, 59219-4, 89377-2, 48646-8 #### [facility] ([id number]) [address], [address] [place] [address] Hemoglobin (Bld) [Mass/Vol] 9.1 g/dL Low 11.7-15.5 [facility] Comment on above: Performed By: #### C BCA, CMP, 1987-12, FEPR, 2276-4, 2284-8, 32947-6, 2132-9, 51549-6, 74343-3, 5130-0, 55148-9, 48639-3, 90745-5, 3357-1, 8092-9, 14180-6, 48080-7, 57399-1, 40050-8, 12460-5 #### [facility] ([id number]) [address], [address] [place] [address] Lymphocytes (Bld) [#/Vol] 0.4 10*3/uL Low 1.0-3.5 [facility] Comment on above: Performed By: #### C BCA, CMP, 1987-12, FEPR, 2276-4, 2284-8, 96600-4, 2132-9, 67651-3, 24366-6, 5130-0, 09419-6, 48046-9, 98361-9, 3357-1, 8092-9, 28191-0, 34769-1, 56584-5, 98160-2, 78558-6 #### [facility] ([id number]) [address], [address] [place] [address] Lymphocytes/100 WBC (Bld) 3.3 % Normal [facility] Comment on above: Performed By: #### C BCA, CMP, 1987-12, FEPR, 2276-4, 2284-8, 56384-6, 2132-9, 74440-2, 98424-2, 5130-0, 19663-3, 91221-9, 69386-6, 3357-1, 8092-9, 25095-1, 08756-5, 70521-4, 67997-5, 22451-7 #### [facility] ([id number]) [address], [address] [place] [address] MCH (RBC) [Entitic mass] 27.8 pg Normal 27-34 [facility] Comment on above: Performed By: #### C SHARATH, CMP, 1987-12, FEPR, 2276-4, 2284-8, 05364-5, 2132-9, 73765-1, 46687-4, 5130-0, 17192-2, 30685-5, 27061-0, 3357-1, 8092-9, 12915-8, 88065-9, 60731-2, 99837-6, 69435-9 #### [facility] ([id number]) [address], [address] [place] [address] MCHC (RBC) [Mass/Vol] 32.7 g/dL Normal 32-36 [facility] Comment on above: Performed By: #### C SHARATH, CMP, 1987-12, FEPR, 2276-4, 2284-8, 08046-2, 2132-9, 99641-3, 56779-3, 5130-0, 53279-6, 48648-6, 25476-4, 3357-1, 8092-9, 30602-3, 07585-5, 25310-1, 89858-8, 68994-6 #### [facility] ([id number]) [address], [address] [place] [address] MCV (RBC) [Entitic vol] 85 fL Normal 80-100 P [facility] Comment on above: Performed By: #### C SHARATH, CMP, 1987-12, FEPR, 227-4, 2284-8, 60946-1, 2132-9, 68835-0, 63160-8, 5130-0, 01106-6, 70287-9, 96718-4, 3357-1, 8092-9, 46818-3, 03859-7, 75225-0, 15054-2, 17250-0 #### [facility] ([id number]) [address], [address] [place] [address] Monocytes (Bld) [#/Vol] 0.1 10*3/uL Normal 0-0.9 [facility] Comment on above: Performed By: #### C BCA, CMP, 1987-12, FEPR, 2276-4, 2284-8, 41728-3, 2132-9, 79088-5, 87545-6, 5130-0, 58029-7, 21142-5, 93253-6, 3357-1, 8092-9, 71367-4, 87896-0, 12940-5, 24730-2, 23958-7 #### [facility] ([id number]) [address], [address] [place] [address] Monocytes/100 WBC (Bld) 1.0 % Normal [facility] Comment on above: Performed By: #### C BCA, CMP, 1987-12, FEPR, 2276-4, 2284-8, 76843-2, 2132-9, 48871-9, 99654-3, 5130-0, 67333-0, 22163-1, 80086-0, 3357-1, 8092-9, 20523-4, 08784-6, 44553-7, 00359-3, 15156-9 #### [facility] ([id number]) [address], [address] [place] [address] Neutrophils/100 WBC (Bld) 95.5 % Normal [facility] Comment on above: Performed By: #### C BCA, CMP, 1987-12, FEPR, 2276-4, 2284-8, 61577-4, 2132-9, 95911-1, 83090-8, 5130-0, 31485-4, 12870-8, 68477-8, 3357-1, 8092-9, 20438-8, 51785-9, 94609-9, 39514-8, 27417-2 #### [facility] ([id number]) [address], [address] [place] [address] Platelet mean volume (Bld) [Entitic vol] 6.2 fL Low 7-12 [facility] Comment on above: Performed By: #### C BCA, CMP, 1987-12, FEPR, 2276-4, 2284-8, 28880-1, 2132-9, 37395-7, 13637-5, 5130-0, 21466-9, 61543-2, 15985-5, 3357-1, 8092-9, 82689-9, 36127-2, 27562-8, 96712-1, 44199-7 #### [facility] ([id number]) [address], [address] [place] [address] Platelets (Bld) [#/Vol] 924 10*3/uL High 150-450 [facility] Comment on above: Performed By: #### C BCA, CMP, 1987-12, FEPR, 2276-4, 2284-8, 37017-8, 2132-9, 51152-4, 94584-6, 5130-0, 79306-6, 77564-5, 48994-0, 3357-1, 8092-9, 32467-7, 20333-8, 46595-0, 70783-0, 75448-2 #### [facility] ([id number]) [address], [address] [place] [address] RBC COUNT 3.27 X10E12/L Low 3.80-5.20 [facility] Comment on above: Performed By: #### C BCA, CMP, 1987-12, FEPR, 2276-4, 2284-8, 14690-3, 2132-9, 87427-6, 23578-3, 5130-0, 25520-1, 29314-2, 32310-6, 3357-1, 8092-9, 38836-8, 77093-8, 49790-7, 74341-9, 47129-5 #### [facility] ([id number]) [address], [address] [place] [address] WBC (Bld) [#/Vol] 12.1 10*3/uL High 4.0-11.0 [facility] Comment on above: Performed By: #### C SHARATH, CMP, 1987-12, FEPR, 2276-4, 2284-8, 65801-8, 2132-9, 52489-0, 91554-3, 5130-0, 01136-1, 97267-7, 25515-6, 3357-1, 8092-9, 82112-4, 82608-1, 10732-3, 99465-2, 66816-7 #### [facility] ([id number]) [address], [address] [place] [address] ABSOLUTE BASOPHIL 0.2 X10E9/L Normal 0.0-0.2 [facility] Comment on above: Performed By: #### C SHARATH, CMP, 1987-12, FEPR, 227-4, 2284-8, 69365-0, 2132-9, 75118-0, 62838-5, 5130-0, 00862-5, 67657-7, 77583-6, 3357-1, 8092-9, 50055-2, 92244-9, 24012-9, 00196-2, 38047-4 #### [facility] ([id number]) [address], [address] [place] [address] ABSOLUTE NEUTROPHIL 10.4 X10E9/L High 1.5-6.6 [facility] Comment on above: Performed By: #### C BCA, CMP, 1987-12, FEPR, 2276-4, 2284-8, 74180-4, 2132-9, 05214-9, 44097-9, 5130-0, 87528-9, 36093-3, 15132-9, 3357-1, 8092-9, 05874-3, 46753-2, 66422-2, 90564-8, 54289-1 #### [facility] ([id number]) [address], [address] [place] [address] Basophils/100 WBC (Bld) 2.1 % Normal [facility] Comment on above: Performed By: #### C BCA, CMP, 1987-12, FEPR, 2276-4, 2284-8, 74423-9, 2132-9, 88980-5, 83950-7, 5130-0, 42509-5, 85828-1, 30349-7, 3357-1, 8092-9, 93478-0, 16920-3, 71103-6, 76013-8, 62793-6 #### [facility] ([id number]) [address], [address] [place] [address] Eosinophils (Bld) [#/Vol] 0.0 10*3/uL Normal 0.0-0.4 [facility] Comment on above: Performed By: #### C BCA, CMP, 1987-12, FEPR, 2275-4, 2284-8, 24638-5, 2132-9, 32512-7, 34493-4, 5130-0, 90096-7, 77381-5, 88301-4, 3357-1, 8092-9, 02957-0, 27824-7, 63651-9, 11482-5, 08492-9 #### [facility] ([id number]) [address], [address] [place] [address] Eosinophils/100 WBC (Bld) 0.0 % Normal [facility] Comment on above: Performed By: #### C BCA, CMP, 1987-12, FEPR, 227-4, 2284-8, 39073-0, 2132-9, 37525-3, 28419-0, 5130-0, 46360-4, 36090-1, 35567-0, 3357-1, 8092-9, 24622-1, 36062-0, 98917-3, 24451-8, 91565-2 #### [facility] ([id number]) [address], [address] [place] [address] Erythrocyte distribution width (RBC) [Ratio] 14.6 % Normal 11.5-15.0 [facility] Comment on above: Performed By: #### C SHARATH, CMP, 1987-12, FEPR, 2276-4, 2284-8, 16201-5, 2132-9, 76324-3, 02317-2, 5130-0, 29512-5, 50712-0, 86827-2, 3357-1, 8092-9, 79326-5, 60703-6, 77522-3, 27272-3, 29324-7 #### [facility] ([id number]) [address], [address] [place] [address] Hematocrit (Bld) [Volume fraction] 26.2 % Low 35-47 [facility] Comment on above: Performed By: #### C SHARATH, CMP, 1987-12, FEPR, 2276-4, 2284-8, 14507-7, 2132-9, 52997-2, 87055-2, 5130-0, 56989-3, 34857-0, 84637-9, 3357-1, 8092-9, 28792-8, 63114-3, 20769-2, 44233-1, 13447-6 #### [facility] ([id number]) [address], [address] [place] [address] Hemoglobin (Bld) [Mass/Vol] 8.6 g/dL Low 11.7-15.5 [facility] Comment on above: Performed By: #### C SHARATH, CMP, 1987-12, FEPR, 2276-4, 2284-8, 19159-0, 2132-9, 53361-4, 40305-7, 5130-0, 59278-7, 06139-2, 10866-9, 3357-1, 8092-9, 97665-6, 00966-2, 39502-8, 70005-5, 18086-0 #### [facility] ([id number]) [address], [address] [place] [address] Lymphocytes (Bld) [#/Vol] 0.4 10*3/uL Low 1.0-3.5 [facility] Comment on above: Performed By: #### C BCA, CMP, 1987-12, FEPR, 2276-4, 2284-8, 32875-8, 2132-9, 43881-6, 67697-7, 5130-0, 38477-7, 78892-1, 46179-1, 3357-1, 8092-9, 72528-3, 47310-2, 32669-9, 56028-8, 07026-5 #### [facility] ([id number]) [address], [address] [place] [address] Lymphocytes/100 WBC (Bld) 3.6 % Normal [facility] Comment on above: Performed By: #### C BCA, CMP, 1987-12, FEPR, 2275-4, 2284-8, 85236-1, 2132-9, 95507-1, 84407-0, 5130-0, 11549-1, 69775-7, 59331-6, 3357-1, 8092-9, 09607-8, 38739-5, 63127-0, 80939-9, 07557-4 #### [facility] ([id number]) [address], [address] [place] [address] MCH (RBC) [Entitic mass] 28.1 pg Normal 27-34 [facility] Comment on above: Performed By: #### C BCA, CMP, 1987-12, FEPR, 2276-4, 2284-8, 20370-8, 2132-9, 19073-7, 41949-7, 5130-0, 78499-7, 10967-1, 37036-6, 3357-1, 8092-9, 93528-5, 62479-0, 79910-9, 24671-5, 09267-3 #### [facility] ([id number]) [address], [address] [place] [address] MCHC (RBC) [Mass/Vol] 32.9 g/dL Normal 32-36 [facility] Comment on above: Performed By: #### C BCA, CMP, 1987-12, FEPR, 2276-4, 2284-8, 31411-8, 2132-9, 29255-5, 14842-4, 5130-0, 67549-9, 48607-5, 52663-2, 3357-1, 8092-9, 81083-4, 52327-2, 74571-6, 49167-3, 80071-4 #### [facility] ([id number]) [address] [place] [address] MCV (RBC) [Entitic vol] 85 fL Normal 80-100 [facility] Comment on above: Performed By: #### C BCA, CMP, 1987-12, FEPR, 2275-4, 2284-8, 26736-3, 2132-9, 23371-1, 77649-3, 5130-0, 72232-0, 18940-9, 99531-7, 3357-1, 8092-9, 89467-8, 04261-0, 61797-2, 86141-8, 19209-8 #### [facility] ([id number]) [address], [address] [place] [address] Monocytes (Bld) [#/Vol] 0.1 10*3/uL Normal 0-0.9 [facility] Comment on above: Performed By: #### C BCA, CMP, 1987-12, FEPR, 2276-4, 2284-8, 91061-7, 2132-9, 34679-6, 35743-4, 5130-0, 93230-9, 59757-8, 06062-4, 3357-1, 8092-9, 12997-6, 29421-7, 24324-0, 63822-2, 30408-5 #### [facility] ([id number]) [address], [address] [place] [address] Monocytes/100 WBC (Bld) 1.0 % Normal [facility] Comment on above: Performed By: #### C BCA, CMP, 1987-12, FEPR, 2276-4, 2284-8, 79250-9, 2132-9, 59807-4, 84045-9, 5130-0, 13173-7, 87895-0, 48203-0, 3357-1, 8092-9, 04008-1, 92913-7, 94086-8, 67220-9, 95155-8 #### [facility] ([id number]) [address], [address] [place] [address] Neutrophils/100 WBC (Bld) 93.3 % Normal [facility] Comment on above: Performed By: #### C BCA, CMP, 1987-12, FEPR, 2275-4, 2283-8, 81255-1, 2132-9, 39038-1, 80591-3, 5130-0, 09861-6, 30947-6, 57874-9, 3357-1, 8092-9, 23064-6, 58399-4, 56934-0, 46546-6, 01933-9 #### [facility] ([id number]) [address], [address] [place] [address] Platelet mean volume (Bld) [Entitic vol] 6.3 fL Low 7-12 [facility] Comment on above: Performed By: #### C BCA, CMP, 1987-12, FEPR, 2276-4, 2284-8, 07743-7, 2132-9, 80143-6, 93930-1, 5130-0, 21092-1, 41994-6, 86930-9, 3357-1, 8092-9, 87473-4, 79053-3, 84584-5, 48873-3, 61898-4 #### [facility] ([id number]) [address], [address] [place] [address] Platelets (Bld) [#/Vol] 917 10*3/uL High 150-450 [facility] Comment on above: Performed By: #### C BCA, CMP, 1987-12, FEPR, 2276-4, 2284-8, 79447-6, 2132-9, 56621-5, 77039-1, 5130-0, 43785-3, 00139-0, 35410-0, 3357-1, 8092-9, 60590-5, 08981-7, 64849-0, 51909-8, 91324-7 #### [facility] ([id number]) [address], [address] [place] [address] RBC COUNT 3.07 X10E12/L Low 3.80-5.20 [facility] Comment on above: Performed By: #### C SHARATH, CMP, 1987-12, FEPR, 2276-4, 2284-8, 78063-3, 2132-9, 50134-1, 63312-7, 5130-0, 94720-3, 58349-3, 43056-2, 3357-1, 8092-9, 27435-1, 02749-3, 70092-7, 88994-6, 49394-3 #### [facility] ([id number]) [address], [address] [place] [address] WBC (Bld) [#/Vol] 11.1 10*3/uL High 4.0-11.0 [facility] Comment on above: Performed By: #### C BCA, CMP, 1987-12, FEPR, 2276-4, 2284-8, 03730-7, 2132-9, 83653-4, 43983-7, 5130-0, 13111-4, 61842-9, 49345-6, 3357-1, 8092-9, 38573-0, 50665-7, 15578-6, 68313-4, 54872-6 #### [facility] ([id number]) [address], [address] [place] [address] CBC auto differentialon 08-27 Basophils (Bld) [#/Vol] 0.0 10*3/uL [facility] Bas[facility]/100 WBC (Bld) 0.2 % P [facility] Eosinophils (Bld) [#/Vol] 0.0 10*3/uL [facility] Eosinophils/100 WBC (Bld) 0.0 % [facility] Erythrocyte distribution width (RBC) [Ratio] 14.4 % 11.5 - 15.0 % [facility] Hematocrit (Bld) [Volume fraction] 27.8 % Low 35 - 47 % [facility] Hemoglobin (Bld) [Mass/Vol] 9.1 g/dL [...] System Platelets (Bld) [#/Vol] 924 10*3/uL High [facility] RBC (Bld) [#/Vol] 3.27 10*6/uL Low [facility] dica [facility] WBC corrected for nucl RBC Auto (Bld) [#/Vol] 12.1 High [facility] Basophils (Bld) [#/Vol] 0.2 10*3/uL [facility] Basophils/100 WBC (Bld) 2.1 % P [facility] Eosinophils (Bld) [#/Vol] 0.0 10*3/uL [facility] Eosinophils/100 WBC (Bld) 0.0 % [facility] Erythrocyte distribution width (RBC) [Ratio] 14.6 % 11.5 - 15.0 % [facility] Hematocrit (Bld) [Volume fraction] 26.2 % Low 35 - 47 % [facility] Hemoglobin (Bld) [Mass/Vol] 8.6 g/dL Low 11.7 - 15.5 g/dL [facility] Interpretation and review of laboratory results Abnormal [facility] Lymphocytes (Bld) [#/Vol] 0.4 10*3/uL Low [facility] Lymphocytes/100 WBC (Bld) 3.6 % [facility] MCH (RBC) [Entitic mass] 28.1 pg 27 - 34 pg [facility] MCHC (RBC) [Mass/Vol] 32.9 g/dL 32 - 3 6 g/dL [facility] MCV (RBC) [Entitic vol] 85 fL 80 - 100 fL [facility] Monocytes (Bld) [#/Vol] 0.1 10*3/uL [facility] Monocytes/100 WBC (Bld) 1.0 % P [facility] Neutrophils (Bld) [#/Vol] 10.4 10*3/uL High [facility] Neutrophils/100 WBC (Bld) 93.3 % [facility] Platelet mean volume (Bld) [Entitic vol] 6.3 fL Low 7 - 12 fL [facility] Platelets (Bld) [#/Vol] 917 10*3/uL High [facility] RBC (Bld) [#/Vol] 3.07 10*6/uL Low [facility] WBC corrected for nucl RBC Auto (Bld) [#/Vol] 11.1 High [facility] COMPREHENSIVE METABOLIC PANE Cole 09-23-2023 Albumin [Mass/Vol] 3.0 g/dL Low 3.2-5.3 [facility] Comment on above: Performed By: #### C BCA, CMP, 1987-12, FEPR, 2276-4, 2284-8, 15363-9, 2132-9, 79695-8, 77076-8, 5130-0, 39503-0, 77400-2, 80968-0, 3357-1, 8092-9, 90549-1, 89572-9, 32770-7, 61896-6, 67619-6 #### [facility] ([id number]) [address] [place] [address], [address] [place] [address] ALP [Catalytic activity/Vol] 227 U/L High 39-130 [facility] Comment on above: Performed By: #### C BCA, CMP, 1987-12, FEPR, 2276-4, 2284-8, 13746-1, 2132-9, 09209-7, 74743-4, 5130-0, 14685-6, 96857-6, 65397-5, 3357-1, 8092-9, 81971-6, 32023-0, 01483-4, 57305-8, 25176-6 #### [facility] ([id number]) [address] [place] [address], [address] [place] [address] ALT [Catalytic activity/Vol] 11 U/L Normal 0-31 [facility] Comment on above: Performed By: #### C BCA, CMP, 1987-12, FEPR, 2276-4, 2284-8, 02955-1, 2132-9, 30615-4, 40470-9, 5130-0, 50148-2, 40767-8, 26304-7, 3357-1, 8092-9, 94443-2, 01334-6, 28069-4, 31313-2, 43150-8 #### [facility] ([id number]) [address], [address] [place] [address] Anion gap [Moles/Vol] 13 mmol/L Normal 5-15 [facility] Comment on above: Performed By: #### C BCA, CMP, 1987-12, FEPR, 2276-4, 2284-8, 58825-6, 2132-9, 69762-0, 80386-0, 5130-0, 71505-5, 25049-2, 62765-8, 3357-1, 8092-9, 49416-7, 40780-1, 23806-5, 27231-0, 01335-2 #### [facility] ([id number]) [address], [address] [place] [address] AST [Catalytic activity/Vol] 12 U/L Normal 0-41 [facility] Comment on above: Performed By: #### C BCA, CMP, 1987-12, FEPR, 2275-4, 2284-8, 69248-4, 2132-9, 10511-9, 79369-7, 5130-0, 65674-7, 38824-7, 00261-7, 3357-1, 8092-9, 10056-8, 18009-1, 35492-7, 43452-0, 09916-6 #### [facility] ([id number]) [address], [address] [place] [address] Bilirubin [Mass/Vol] 0.6 mg/dL Normal 0.3-1.2 [facility] Comment on above: Performed By: #### C BCA, CMP, 1987-12, FEPR, 2276-4, 2284-8, 75747-1, 2132-9, 12757-6, 83514-8, 5130-0, 09831-7, 40349-9, 33521-1, 3357-1, 8092-9, 64924-2, 54102-7, 67878-4, 41197-8, 22437-1 #### [facility] ([id number]) [address], [address] [place] [address] Calcium [Mass/Vol] 8.6 mg/dL Normal 8.5-10.5 [facility] Comment on above: Performed By: #### C BCA, CMP, 1987-12, FEPR, 2276-4, 2284-8, 14421-5, 2132-9, 92055-0, 52379-1, 5130-0, 79166-0, 28408-6, 55148-6, 3357-1, 8092-9, 96216-2, 79971-6, 52905-6, 44062-8, 07612-1 #### [facility] ([id number]) [address], [address] [place] [address] Chloride [Moles/Vol] 101 mmol/L Normal 98-109 [facility] Comment on above: Performed By: #### C BCA, CMP, 1987-12, FEPR, 2276-4, 2284-8, 64715-8, 2132-9, 27167-5, 14649-9, 5130-0, 87739-8, 37687-7, 92643-5, 3357-1, 8092-9, 28595-4, 64108-4, 58574-1, 92154-9, 47534-2 #### [facility] ([id number]) [address], [address] [place] [address] CO2 [Moles/Vol] 25 mmol/L Normal 22-32 [facility] Comment on above: Performed By: #### C BCA, CMP, 1987-12, FEPR, 2276-4, 2284-8, 54400-5, 2132-9, 01868-5, 52367-8, 5130-0, 57167-3, 56552-1, 68942-2, 3357-1, 8092-9, 67686-1, 65585-5, 88231-2, 10212-0, 56167-9 #### [facility] ([id number]) [address], [address] [place] [address] Creatinine [Mass/Vol] 0.49 mg/dL Normal 0.40-1.00 [facility] Comment on above: Result Comment: METH OD TRACEABLE TO IDMS STANDARD Performed By: #### C BCA, CMP, 1987-12, FEPR, 2276-4, 2284-8, 46115-2, 2132-9, 23745-3, 68307-1, 5130-0, 05367-4, 05672-4, 43346-1, 3357-1, 8092-9, 22628-8, 80711-2, 64658-2, 16585-4, 06542-2 #### [facility] ([id number]) [address], [address] [place] [address] eGFR (CKD-EPI) NON-RACE DEPENDENT >90 Normal >59 [facility] Comment on above: Result Comment: Reported eGFR is based on the CKD-EPI 2020 equation that does not use a race coefficient. Performed By: #### C BCA, CMP, 1987-12, FEPR, 2275-4, 2284-8, 95239-1, 2132-9, 67876-3, 38375-3, 5130-0, 97921-2, 75836-2, 91212-3, 3357-1, 8092-9, 54125-7, 99746-0, 05599-8, 36483-9, 43505-4 #### [facility] ([id number]) [address], [address] [place] [address] Glucose [Mass/Vol] 141 mg/dL High 65-99 [facility] Comment on above: Performed By: #### C BCA, CMP, 1987-12, FEPR, 2276-4, 2284-8, 62901-2, 2132-9, 34341-0, 26577-9, 5130-0, 27020-9, 83934-7, 94649-9, 3357-1, 8092-9, 66181-8, 77465-6, 32584-5, 55153-4, 27250-3 #### [facility] ([id number]) [address], [address] [place] [address] Potassium [Moles/Vol] 3.7 mmol/L Normal 3.5-5.0 [facility] Comment on above: Performed By: #### C BCA, [facility], 1987-12, FEPR, 2275-4, 2284-8, 91672-5, 2132-9, 74374-6, 08291-6, 5130-0, 54331-8, 39966-2, 11988-4, 3357-1, 8092-9, 78520-3, 78166-4, 72521-5, 31610-3, 10611-7 #### [facility] ([id number]) [facility], [address] [place] [address] Protein [Mass/Vol] 6.9 g/dL Normal 6.0-8.0 [facility] Comment on above: Performed By: #### C BCA, [facility], 1987-12, FEPR, 2275-4, 2284-8, 65575-4, 2132-9, 81486-6, 06519-2, 5130-0, 48988-4, 79092-2, 58307-9, 3357-1, 8092-9, 37771-0, 23724-4, 42416-9, 77086-5, 28139-1 #### [facility] ([id number]) [address], [address] [place] [address] Sodium [Moles/Vol] 139 mmol/L Normal 134-146 [facility] Comment on above: Performed By: #### C BCA, CMP, 1987-12, FEPR, 2276-4, 2284-8, 68832-9, 2132-9, 48498-7, 62048-2, 5130-0, 23464-9, 75481-5, 95215-5, 3357-1, 8092-9, 60926-2, 27541-1, 83576-4, 71434-3, 90771-0 #### [facility] ([id number]) [address] [place] [address], [address] [place] [address] Urea nitrogen [Mass/Vol] 14 mg/dL Normal 5-27 [facility] Comment on above: Performed By: #### C BCA, CMP, 1987-12, FEPR, 2275-4, 2284-8, 02949-1, 2132-9, 16651-9, 64617-9, 5130-0, 02132-5, 80180-2, 69532-7, 3357-1, 8092-9, 04477-0, 68470-3, 64059-1, 14131-4, 96102-3 #### [facility] ([id number]) [address] [place] [address], [address] [place] [address] CRP [Mass/Vol]on 09-23-2023 C REACTIVE PROTEIN 13.3 mg/dL High 0.000-0.744 [facility] Comment on above: Performed By: #### C BCA, CMP, 1987-12, FEPR, 2275-4, 2284-8, 93380-5, 2132-9, 50116-3, 40476-3, 5130-0, 56214-3, 50880-3, 80330-6, 3357-1, 8092-9, 87904-1, 97107-9, 95894-0, 43609-3, 92104-8 #### [facility] ([id number]) [address] [place] [address], [address] [place] [address] Centromere ABon 09-23-2023 Centromere protein B Ab Ql (S) High NINF [facility] Comment on above: CLIA ID [id number] Centromere protein B Ab Ql ( S)on 09-23-2023 Interpretation and review of laboratory results Abnormal [facility] CENTROMERE ANTIBODY >8.0 High <1.0 [facility] Comment on above: Performed By: #### C BCA, CMP, 1987-, FEPR, 2276-4, 2284-8, 94524-0, 2132-9, 29547-3, 49638-4, 5130-0, 26779-3, 47675-9, 27791-9, 3357-1, 8092-9, 41952-5, 21386-2, 83132-3, 10195-6, 64362-9 #### [facility] ([id number]) [address] [place] [address], [address] [place] [address] Chromatin Ab Qlon 09-23-2023 CHROMATIN AB IGG 0.4 AI Normal <1.0 [facility] Comment on above: Performed By: #### C BCA, CMP, 1987-, FEPR, 2276-4, 2284-8, 01871-7, 2132-9, 68346-1, 03314-6, 5130-0, 70949-0, 18132-7, 36550-6, 3357-1, 8092-9, 31503-4, 05936-2, 86337-1, 13398-8, 33793-7 #### [facility] ([id number]) [address] [place] [address], [address] [place] [address] Clinical Pathologyon 024 Clinical Pathology Normal [facility] Comment on above: Result Comment: [facility] [address] [place] [address] Clinical Pathology Report Patient Name:JOSE DAVID:1945 (Age: 78)Gender:FTaken:4Reported:09/27/2023hysician(s):Olga Pan M.D. ([phone])Copy To: Rec. #:[id number]: #[id number] Final Pathologic Diagnosis Hypoalbuminemia with increase in acute phase reactants. No monoclonal bands identified. Report Electronically Signed Out df/09/27/2023kevin Bains MD [facility] [place] [address], License number: [id number]. Clinical History E53.8, H53.8, R29.90. SERUM PROTEIN ELECTROPHORESIS SAMPLE NO: [id number] ELECTROPHORETIC FRACTION CONCENTRATIONS (g/dL) PATIENT REFERENCE RANGE [...] IgA : 180 IgM : 285 Free [place]: 2.91 Free Lambda: 2.38 Free [place]/Lambda ratio: 1.22 Specimen(s) Received 1: Serum Protein Electrophoresis 2: Serum IEP Fee Codes(s): 1; 41793-04 2; 97329-00 Clinical Pathology Blood Sme ar Reviewon 09-23-2023 Clinical Pathology Blood Smear Review Normal [facility] Comment on above: Result Comment: [facility] [address] [place] [address] Clinical Pathology Report Patient Name:JOSE DAVID:1945 (Age: 78)Gender:FTaken:4Reported:09/26/2023hysician(s):Olga Pan M.D. ([phone])Copy To: Rec. #:[id number]: #[id number] Final Pathologic Diagnosis Peripheral blood smear: Neutrophilic [...] Out hn09/26/2023Og Martinez M.D. Interpretation [place] [address], License number: [id number]. Clinical History R29.9. BLOOD SMEAR EVALUATION CBC (09/23/2023 0818): WBC = 12.1 X10E9/L; HGB = 9.1 g/dL; HCT = 27.8%; MCV = 85 fL; PLT = 924 X10E9/L OTHER LAB DATA: Noncontributory. BLOOD SMEAR: Leukocytes: Neutrophilic leukocytosis with cytotoxic changes and lymphocytopenia. Erythrocytes: Moderate normocytic normochromic anemia. Platelets: Thrombocytosis. Specimen(s) Received Blood Smear Review Fee Codes(s): 1; 45160 Cobalamin (Vitamin B12) [Mas s/Vol]on 09-23-2023 [facility] Comprehensive metabolic pane cole 09-23-2023 Albumin [Mass/Vol] 3.0 g/dL Low 3.2 - 5.3 g/dL [facility] ALP [Catalytic activity/Vol] 227 U/L High 39 - 130 U/L [facility] ALT No additional P-5'-P [Catalytic activity/Vol] 11 U/L 0 - 31 U/L [facility] Anion gap [Moles/Vol] 13 mmol/L 5 - 15 mmol/L [facility] AST [Catalytic activity/Vol] 12 U/L 0 - 41 U/L [facility] Bilirubin [Mass/Vol] 0.6 mg/dL 0.3 - 1 .2 mg/dL [facility] Calcium [Mass/Vol] 8.6 mg/dL 8.5 - 10. 5 mg/dL [facility] Chloride [Moles/Vol] 101 mmol/L 98 - 10 9 mmol/L [facility] CO2 [Moles/Vol] 25 mmol/L 22 - 32 mmol/L [facility] Creatinine [Mass/Vol] 0.49 mg/dL 0.40 - 1.00 mg/dL [facility] Comment on above: METHOD TRACEABLE TO [facility] STANDARD eGFR (CKD-EPI)non-race dependent - PINF [facility] Comment on above: Reported eGFR is based on the CKD-EPI 2020 equation that does not use a race coefficient. Glucose [Mass/Vol] 141 mg/dL High 65 - 99 mg/dL [facility] Potassium [Moles/Vol] 3.7 mmol/L 3.5 - 5.0 mmol/L [facility] Protein [Mass/Vol] 6.9 g/dL 6.0 - 8.0 g/dL [facility] Sodium [Moles/Vol] 139 mmol/L 134 - 146 mmol/L [facility] Urea nitrogen [Mass/Vol] 14 mg/dL 5 - 27 mg/dL [facility] DNA double strand Ab Qn (S)o n 09-23-2023 DOUBLE STRANDED DNA 1 IU/ML Normal <5 [facility] Comment on above: Result Comment: Interpretation-------- <5 Negative 5-9 Indeterminate >9 Positive Performed By: #### C BCA, CMP, 1988-5, FEPR, 2276-4, 2284-8, 93563-7, 2132-9, 95869-9, 48224-0, 5130-0, 56740-4, 82660-2, 07759-8, 3357-1, 8092-9, 62362-3, 71511-0, 82630-6, 70421-8, 24987-7 #### [facility] ([id number]) [address] [place] [address], [address] [place] [address] Direct Coombson 09-23-2023 Polyspecific HENRRY Negative [facility] ESR Photometric method (Bld) [Velocity]on 09-23-2023 Interpretation and review of laboratory results Abnormal [facility] ESR, ERYTHROCYTE SEDIMENTATION RATE 114 mm/h High 0-30 [facility] Comment on above: Performed By: #### C BCA, CMP, 1987-12, FEPR, 2276-4, 2284-8, 79166-4, 2132-9, 41874-9, 71840-2, 5130-0, 24852-1, 58576-4, 99940-8, 3357-1, 8092-9, 62422-3, 09114-7, 13367-7, 99090-5, 92695-4 #### [facility] ([id number]) [address] [place] [address], [address] [place] [address] Erythrocyte Sedimentation Ra te (ESR)on 09-23-2023 ESR Photometric method (Bld) [Velocity] 114 mm/h High 0 - 30 mm/h [facility] FERRITINon 09-23-2023 Ferritin [Mass/Vol] 478 ng/mL High 11-307 [facility] Comment on above: Performed By: #### C BCA, CMP, 1987-12, FEPR, 2276-4, 2284-8, 95038-2, 2132-9, 15487-0, 70984-5, 5130-0, 59587-4, 87393-8, 86887-7, 3357-1, 8092-9, 36973-9, 25277-5, 70507-1, 80220-7, 89488-5 #### [facility] ([id number]) [address] [place] [address], [address] [place] [address] FLOW CYTOMETRYon 09-23-2023 FLOW CYTOMETRY SEE SEPARATE REPORT, REVIEWED BY PATHOLOGIST Normal [facility] Comment on above: Performed By: #### C SHARATH, CMP, 1987-, FEPR, 2276-4, 2284-8, 84271-3, 2132-9, 36969-6, 11895-8, 5130-0, 55847-2, 48468-1, 98893-8, 3357-1, 8092-9, 92086-2, 32380-5, 59439-5, 74568-6, 53570-2 #### [facility] ([id number]) [address], [address] [place] [address] Ferritinon 09-23-2023 Ferritin [Mass/Vol] 478 ng/mL High 11 - 307 ng/mL [facility] Ferritin [Mass/Vol]on 2023 Interpretation and review of laboratory results Abnormal [facility] Folateon 09-23-2023 Folate [Mass/Vol] 13.0 ng/mL 5.8 - PINF ng/mL [facility] Comment on above: NEW REFERENCE RANGE Folate [Mass/Vol]on 09-23-19 24 [facility] FOLIC ACID 13.0 ng/mL Normal >5.8 [facility] Comment on above: Result Comment: NEW REFERENCE RANGE Performed By: #### C BCA, CMP, 1987-12, FEPR, 2276-4, 2284-8, 93281-1, 2132-9, 96541-5, 99426-7, 5130-0, 44362-9, 16974-5, 87229-2, 3357-1, 8092-9, 01685-7, 48461-3, 35475-2, 82225-2, 25803-1 #### [facility] ([id number]) [address], [address] [place] [address] Haptoglobinon 09-23-2023 Haptoglobin Nephelometry [Mass/Vol] 613 mg/dL High 32 - 228 mg/dL [facility] Haptoglobin Nephelometry [Ma ss/Vol]on 09-23-2023 Interpretation and review of laboratory results Abnormal [facility] HAPTOGLOBIN 613 mg/dL High 32-228 [facility] Comment on above: Performed By: #### C KELVIN EARLY, 1987-12, FEPR, 2276-4, 2284-8, 13099-7, 2132-9, 03956-5, 60671-7, 5130-0, 90778-6, 85749-5, 91715-6, 3357-1, 8092-9, 15148-2, 66812-2, 11682-6, 97205-9, 86049-9 #### [facility] ([id number]) [address] [place] [address], [address] [place] [address] Hepatitis panel, acuteon HAV IgM IA Ql Non-Reactive Non-Reactiv e^Non-React harshil [facility] HBV core IgM IA Ql Negative Negative^ Ne gative [facility] HBV surface Ag IA Ql Negative Negativ e^Ne gative [facility] HCV Ab IA Ql Non-Reactive Non-Reactiv e^Non-React harshil [facility] Comment on above: If recent infection suspected, recommend repeat testing (>2 months). Nlyuad-qv-hctfok ratio is <0.80. [facility] Homocysteine [Moles/Vol]on 0 09-23-2023 HOMOCYSTEINE 9.29 mcmol/L Normal 3.36-20.44 [facility] Comment on above: Performed By: #### C KELVIN EARLY, 1987-12, FEPR, 6-4, 2284-8, 87426-2, 2131-9, 23048-2, 37047-4, 5130-0, 11516-9, 85778-5, 33348-5, 3357-1, 8092-9, 08659-6, 74847-5, 73430-7, 47004-4, 01404-3 #### [facility] ([id number]) [address] [place] [address], [address] [place] [address] [facility] Homocysteine totalon 024 Homocysteine [Moles/Vol] 9.29 umol/L [facility] IMMUNOELECTROPHORESIS FOR TH ERAPY MONITORINGon 09-23-2023 FREE KECIA/LAMBD RATIO 1.22 Normal 0.26-1.65 [facility] Comment on above: Performed By: #### C SHARATH, CMP, 1987-12, FEPR, 2276-4, 2284-8, 01864-9, 2132-9, 09226-1, 27538-6, 5130-0, 90668-3, 50857-3, 44192-9, 3357-1, 8092-9, 58948-6, 10394-5, 79598-9, 38706-1, 75967-4 #### [facility] ([id number]) [address], [address] [place] [address] FREE KAPPA LT CHAINS 2.91 mg/dL High 0.33-1.94 [facility] Comment on above: Performed By: #### C SHARATH, KELVIN, 1986-12, FEPR, 2275-4, 2284-8, 57443-6, 2132-9, 11778-6, 94347-6, 5130-0, 08699-5, 68249-5, 99107-1, 3357-1, 8092-9, 53621-3, 32693-3, 21816-9, 86546-8, 51733-7 #### [facility] ([id number]) [address], [address] [place] [address] FREE LAMBDA LT CHAINS 2.38 mg/dL Normal 0.57-2.63 [facility] Comment on above: Performed By: #### C SHARATH, CMP, 1986-12, FEPR, 227-4, 2284-8, 43595-5, 2132-9, 45076-3, 64121-3, 5130-0, 65930-8, 83146-2, 58730-8, 3357-1, 8092-9, 33465-2, 87054-4, 39766-7, 31704-3, 16538-2 #### [facility] ([id number]) [address], [address] [place] [address] IgA [Mass/Vol] 180 mg/dL Normal 68-378 [facility] Comment on above: Performed By: #### C BCA, CMP, 1987-12, FEPR, 2276-4, 2284-8, 87676-8, 2132-9, 33086-4, 36079-4, 5130-0, 89373-4, 76101-2, 30284-5, 3357-1, 8092-9, 69840-7, 56439-2, 72962-0, 60078-4, 55380-0 #### [facility] ([id number]) [address], [address] [place] [address] IgG [Mass/Vol] 992 mg/dL Normal 635-1741 [facility] Comment on above: Performed By: #### C BCA, CMP, 1987-12, FEPR, 2276-4, 2284-8, 63350-8, 2132-9, 90774-2, 02937-7, 5130-0, 17547-1, 19216-7, 85453-7, 3357-1, 8092-9, 72194-7, 33844-4, 73959-6, 42583-6, 85210-3 #### [facility] ([id number]) [address], [address] [place] [address] IgM [Mass/Vol] 285 mg/dL High 45-281 [facility] Comment on above: Performed By: #### C BCA, CMP, 1987-12, FEPR, 2276-4, 2284-8, 41231-1, 2132-9, 33744-8, 49091-3, 5130-0, 75423-5, 87329-5, 96935-6, 3357-1, 8092-9, 02691-6, 15678-0, 31766-4, 64796-6, 04650-4 #### [facility] ([id number]) [address], [address] [place] [address] IMMUNE PROFILE INTERP SEE SEPARATE REPORT Normal [facility] Comment on above: Performed By: #### C BCA, CMP, 1987-12, FEPR, 2276-4, 2284-8, 99655-1, 2132-9, 14311-4, 67453-6, 5130-0, 16157-2, 34120-7, 70778-4, 3357-1, 8092-9, 73799-2, 96954-3, 08662-1, 63061-4, 96876-4 #### [facility] ([id number]) [address], [address] [place] [address] IRON PROFILEon 09-23-2023 Iron [Mass/Vol] 25 ug/dL Low 50-170 [facility] Comment on above: Performed By: #### C BCA, CMP, 1987-12, FEPR, 227-4, 2284-8, 48063-7, 2132-9, 97563-8, 55272-1, 5130-0, 16903-2, 92047-7, 81498-1, 3357-1, 8092-9, 20772-0, 12722-0, 21291-8, 80429-0, 09637-0 #### [facility] ([id number]) [address], [address] [place] [address] IRON BINDING 179 ug/dL Low 250-425 [facility] Comment on above: Performed By: #### C BCA, CMP, 1987-12, FEPR, 2276-4, 2284-8, 44921-7, 2132-9, 35704-8, 13250-9, 5130-0, 50478-2, 17504-0, 46477-7, 3357-1, 8092-9, 24849-4, 47329-7, 67873-7, 99397-2, 43407-8 #### [facility] ([id number]) [address], [address] [place] [address] IRON SATURATION 14 % SATURATION Low 15-50 [facility] Comment on above: Performed By: #### C BCA, CMP, 1988-5, FEPR, 2276-4, 2284-8, 47348-8, 2132-9, 95996-7, 39751-3, 5130-0, 37020-9, 87093-2, 26309-9, 3357-1, 8092-9, 79576-7, 32829-0, 80880-2, 98639-3, 92365-6 #### [facility] ([id number]) [address], [address] [place] [address] Iron and TIBCon 09-23-2023 Interpretation and review of laboratory results Abnormal [facility] Iron [Mass/Vol] 25 ug/dL Low 50 - 170 ug/dL [facility] Iron binding capacity [Mass/Vol] 179 ug/dL Low 250 - 425 ug/dL [facility] [facility] Iron saturation [Mass fraction] 14 Low [facility] JAK2 gene p.Aac960Cya [facility] (Bld/Tiss)on 09-23-2023 JAK2 V617F MUTATION, BLOOD SEE COMMENTS 09/26/2023 10:21 AM Normal [facility] Comment on above: Result Comment: NOTE Test Result Flag Unit RefValue ----- JAK2 V617F Mutation Detection, B JAK2 Result see interpretation JAK2 V617F Mutation Detection, B See Note Peripheral blood, JAK2 V617F mutation analysis: Negative for JAK2 V617F. A negative [id number] test result does not exclude the possibility [...] assay has been determined at 0.06% (see [facility] Interpretive Handbook for method details). This test was developed and its performance characteristics determined by [facility] in a manner consistent with CLIA requirements. This test has not been cleared or approved by the U.S. Food and Drug Administration. Test Performed by: [place] [address] Mica Miner Blasting: Thierry Duran M.D. Ph.D.; CLIA# [id number] Performed By: #### C BCA, CMP, 1988-5, FEPR, 2276-4, 2284-8, 48818-8, 2132-9, 43559-5, 50661-2, 5130-0, 06425-8, 06503-7, 86651-6, 3357-1, 8092-9, 77128-7, 71674-9, 04383-3, 76873-9, 63046-9 #### [facility] ([id number]) [address] [place] [address], [address] [place] [address] Tiki 1 AB IGGon 09-23-2023 Anileridine Ql (U) NINF [facility] LDHon 09-23-2023 LDH [Catalytic activity/Vol] 140 U/L 100 - 235 U/L [facility] LDH [Catalytic activity/Vol] on 09-23-2023 [facility] LDH 140 U/L Normal 100-235 [facility] Comment on above: Performed By: #### C BCA, CMP, 1988-5, FEPR, 2276-4, 2284-8, 09235-8, 2132-9, 81497-4, 77270-5, 5130-0, 27241-7, 70555-6, 77013-5, 3357-1, 8092-9, 60572-1, 93465-6, 32978-2, 15664-4, 51637-7 #### [facility] ([id number]) [address] [place] [address], [address] [place] [address] Methylmalonate [Moles/Vol]on 09-23-2023 MMA QN 0.23 umol/L Normal <=0.40 [facility] Comment on above: Result Comment: NOTE This test was developed and its performance characteristics determined by [facility] [place] ([facility]). It has not been cleared or approved by the FDA. -[facility] is regulated under CLIA as qualified to perform high-complexity testing. This test is used for clinical purposes. It should not be regarded as investigational or for research. Test Performed By: [facility] [address] [place] [address] Track Liner Operator: Meño Hernandez III, M.D. CLIA #[id number] Narrative diagnostic report [facility] (Bld/Tiss) [Interp]on 09-23-2023 BCR/ABL PCR w/Reflex SEE COMMENTS 2023 04:24 PM Normal [facility] Comment on above: Result Comment: NOTE Test Result Flag Unit RefValue ----- BCR/ABL1 Reflex, Qual/Quant Specimen Type EDTA WHOLE BLOOD BCR/ABL1 Reflex Result see interpretation Interpretation See Note Peripheral blood, BCR/ABL1 mRNA analysis, qualitative: Negative. No BCR/ABL1 mRNA transcripts were detected. Method summary: The presence or absence of BCR/ABL1 mRNA transcripts was evaluated using a qualitative, reverse form building supervisor PCR-based assay. The assay detects nearly all published and theoretical BCR/ABL1 fusion forms including the common e13/e14-a2 (p210) and e1-a2 (p190) transcripts, as well as other rarer variants (e.g. e19-a2 (p230), e13/e14-a3, e1-a3, etc.). The limit of detection for this assay is 0.1%. Please contact the lab at [phone] with questions or if additional testing is required. See [facility] Test Catalog for additional method details. Signing Pathologist: Ammon Titus M.D. (Jane), Ph.D. ADDITIONAL INFORMATION This test was developed and its performance characteristics determined by [facility] in a manner consistent with CLIA requirements. This test has not been cleared or approved by the U.S. Food and Drug Administration. Test Performed by: [facility] [place] [address] Mica Miner Blasting: Thierry Duran M.D. Ph.D.; CLIA# [id number] Neutrophil cytoplasmic Ab IF Ql (S)on 09-23-2023 ANCA See Below Normal [facility] Comment on above: Result Comment: NOTE TEST [...] results and clinical correlation. Test Performed By: [facility] [address] [place] [address] Track Liner Operator: Meño Hernandez III, M.D. [place] #[id number] No Panel Informationon 09-23 [facility] Interpretation and review of laboratory results Abnormal [facility] Nuclear Ab IA Ql (S)on 09-23 Interpretation and review of laboratory results Abnormal [facility] SILVIA Screen w/reflex Positive Abnormal NEG [facility] Comment on above: Result Comment: Testing performed using multiplex flow immunoassay. Eleven different antigens associated with systemic autoimmune diseases (dsDNA,Sm,Sm/AUTOMOTIVE GLASS INSTALLER,AUTOMOTIVE GLASS INSTALLER,Chromatin, SSA,SSB,Tiki-1,Scl70,Ribo P,Centromere B) are included in this screening test. Performed By: #### C BCA, CMP, 1988-5, FEPR, 2276-4, 2284-8, 05713-1, 2132-9, 40786-8, 30669-2, 5130-0, 22133-5, 88380-4, 75427-4, 3357-1, 8092-9, 65161-4, 51535-4, 34916-1, 90902-3, 97523-2 #### [facility] ([id number]) [address] [place] [address], [address] [place] [address] comment (Bld) [Interp]on 09-23-2023 STAFF REVIEW NOTE Normal [facility] Comment on above: Result Comment: [facility] [address] [place] [address] Clinical Pathology Report Patient Name:JOSE DAVID:1945 (Age: 78)Gender:FTaken:4Reported:09/26/2023hysician(s):Olga Pan M.D. ([phone])Copy To: Rec. #:[id number]: #[id number] Final Pathologic Diagnosis Peripheral blood smear: Neutrophilic [...] Out hna09/26/2023Og Martinez M.D. Interpretation performed at [facility], [address] [place] [address], License number: [id number]. Clinical History R29.9. BLOOD SMEAR EVALUATION CBC (09/23/2023 0818): WBC = 12.1 X10E9/L; HGB = 9.1 g/dL; HCT = 27.8%; MCV = 85 fL; PLT = 924 X10E9/L OTHER LAB DATA: Noncontributory. BLOOD SMEAR: Leukocytes: Neutrophilic leukocytosis with cytotoxic changes and lymphocytopenia. Erythrocytes: Moderate normocytic normochromic anemia. Platelets: Thrombocytosis. Specimen(s) Received Blood Smear Review Fee Codes(s): 1; 90085 Performed By: #### C BCA, CMP, 1988-5, FEPR, 2276-4, 2284-8, 45919-3, 2132-9, 79774-9, 80842-0, 5130-0, 69420-3, 52511-5, 49773-3, 3357-1, 8092-9, 47589-2, 09128-0, 83441-0, 92777-8, 03195-8 #### [facility] ([id number]) [address] [place] [address], [address] [place] [address] AUTOMOTIVE GLASS INSTALLER AB IgGon 09-23-2023 Ribonucleoprotein extractable nuclear IgG Qn (S) [facility] Comment on above: CLIA ID [id number] Rheumatoid factoron 09-23-19 24 Rheumatoid factor Nephelometry Qn (S) 21 High [facility] Rheumatoid factor Nephelomet ry Qn (S)on 09-23-2023 Interpretation and review of laboratory results Abnormal [facility] RHEUMATOID FACTOR 21 IU/mL High <20 [facility] Comment on above: Performed By: #### C BCA, CMP, 1987-12, FEPR, 2275-4, 2284-8, 86976-1, 2132-9, 64292-5, 26936-6, 5130-0, 71477-4, 39845-9, 90008-9, 3357-1, 8092-9, 46137-0, 07927-4, 58339-9, 39706-3, 41887-1 #### [facility] ([id number]) [address] [place] [address], [address] [place] [address] Ribonucleoprotein extractabl e nuclear IgG Qn (S)on 09-23-2023 AUTOMOTIVE GLASS INSTALLER ANTIBODY IGG <0.2 Normal <1.0 [facility] Comment on above: Performed By: #### C SHARATH, CMP, 1987-12, FEPR, 6-4, 4-8, 47678-7, 2132-9, 89008-5, 25493-8, 5130-0, 22968-7, 28745-9, 59549-4, 3357-1, 8092-9, 25472-6, 59970-5, 47909-6, 63183-1, 55249-8 #### [facility] ([id number]) [address] [place] [address], [address] [place] [address] Ribosomal P IgG Qn (S)on RIBOSOME P ANTIBODY <0.2 Normal <1.0 [facility] Comment on above: Performed By: #### C SHARATH, CMP, 1987-12, FEPR, 2276-4, 2284-8, 84643-0, 2132-9, 16641-1, 49408-1, 5130-0, 15381-3, 65190-8, 92314-7, 3357-1, 8092-9, 75256-0, 55643-5, 22118-9, 94254-8, 91090-3 #### [facility] ([id number]) [facility], [address] [place] [address] SCL-70 extractable nuclear A b Ql (S)on 09-23-2023 SCL 70 ANTIBODY <0.2 Normal <1.0 [facility] Comment on above: Performed By: #### C BCA, CMP, 1987-12, FEPR, 2275-4, 4-8, 63568-6, 2132-9, 48657-3, 99318-2, 5130-0, 55245-5, 98490-3, 57846-2, 3357-1, 8092-9, 98093-4, 55327-0, 12835-2, 49591-4, 30466-6 #### [facility] ([id number]) [facility], [address] [place] [address] SERUM PROTEIN ELECTROPHORESI Son 09-23-2023 Albumin [Mass/Vol] 2.5 g/dL Low 3.4-5.3 [facility] Comment on above: Performed By: #### C BCA, CMP, 1987-12, FEPR, 2275-4, 2283-8, 26229-9, 2132-9, 68523-3, 36193-0, 5130-0, 77543-5, 05415-7, 74679-1, 3357-1, 8092-9, 75740-6, 47654-2, 52451-2, 62523-0, 94233-6 #### [facility] ([id number]) [address] [facility], [address] [place] [address] ALPHA 1 GLOBULIN 0.6 g/dL High 0.1-0.4 [facility] Comment on above: Performed By: #### C SHARATH, CMP, 1987-12, FEPR, 2276-4, 2284-8, 41609-8, 2132-9, 74555-6, 01677-5, 5130-0, 96674-5, 48805-0, 01198-0, 3357-1, 8092-9, 05067-0, 81232-6, 65282-3, 72756-5, 77848-5 #### [facility] ([id number]) [address] [facility], [address] [place] [address] ALPHA 2 GLOBULIN 1.2 g/dL High 0.4-1.1 [facility] Comment on above: Performed By: #### C SHARATH, KELVIN, 1987-12, FEPR, 2275-4, 2284-8, 57675-1, 2132-9, 48675-8, 22617-8, 5130-0, 56638-1, 53599-3, 60219-2, 3357-1, 8092-9, 21964-0, 54336-1, 30917-7, 62712-8, 14721-3 #### [facility] ([id number]) [address] [facility], [address] [place] [address] BETA GLOBULIN 0.8 g/dL Normal 0.5-1.2 [facility] Comment on above: Performed By: #### C SHARATH, KELVIN, 1987-12, FEPR, 2275-4, 2284-8, 12052-9, 2132-9, 60534-1, 23538-7, 5130-0, 40167-2, 73117-3, 58838-4, 3357-1, 8092-9, 78251-4, 12245-7, 82611-8, 26958-7, 58444-3 #### [facility] ([id number]) [address] [facility], [address] [place] [address] GAMMA GLOBULIN 1.0 g/dL Normal 0.5-1.6 [facility] Comment on above: Performed By: #### C BCA, CMP, 1987-12, FEPR, 2276-4, 2284-8, 50704-6, 2132-9, 58990-0, 49415-0, 5130-0, 50159-4, 68928-9, 88313-5, 3357-1, 8092-9, 16728-5, 31835-9, 18152-0, 49149-3, 44204-6 #### [facility] ([id number]) [address] [facility], [address] [place] [address] PROT. ELECTROPHORESIS INTERP SEE SEPARATE REPORT Normal [facility] Comment on above: Performed By: #### C SHARATH, CMP, 1987-12, FEPR, 6-4, 2284-8, 74753-5, 2132-9, 27744-7, 74377-2, 5130-0, 60371-0, 28110-5, 45046-3, 3357-1, 8092-9, 67533-3, 22207-3, 38650-7, 54121-1, 96134-2 #### [facility] ([id number]) [address] [place] [address], [address] [place] [address] Protein [Mass/Vol] 6.1 g/dL Normal 6.0-8.0 [facility] Comment on above: Performed By: #### C SHARATH, CMP, 1987-12, FEPR, 2276-4, 2284-8, 07536-9, 2132-9, 15416-6, 40773-0, 5130-0, 95837-4, 15234-2, 41006-3, 3357-1, 8092-9, 55161-4, 50688-1, 59040-9, 91969-5, 28115-1 #### [facility] ([id number]) [address] [facility], [address] [place] [address] SSA antibodyon 09-23-2023 Sjogrens syndrome-A extractable nuclear Ab Qn (S) [facility] Comment on above: CLIA ID [id number] SSB Antibodyon 09-23-2023 Sjogrens syndrome-B extractable nuclear IgG Qn (S) [facility] Comment on above: CLIA ID [id number] Scleroderma antibodyon 09-23 SCL-70 extractable nuclear Ab Ql (S) [facility] Comment on above: CLIA ID [id number] Sjogrens syndrome-A extracta ble nuclear Ab Qn (S)on 09-23-2023 SSA ANTIBODY <0.2 Normal <1.0 [facility] Comment on above: Performed By: #### C SHARATH, [facility], 1987-12, FEPR, 2276-4, 2284-8, 87838-8, 2132-9, 03589-4, 02020-5, 5130-0, 04523-6, 97433-1, 70550-2, 3357-1, 8092-9, 98743-7, 39753-9, 08888-0, 94302-7, 70416-0 #### [facility] ([id number]) [address] [place] [address], [address] [place] [address] Sjogrens syndrome-B extracta ble nuclear IgG Qn (S)on 09-23-2023 SSB ANTIBODY <0.2 Normal <1.0 [facility] Comment on above: Performed By: #### C SHARATH, [facility], 1987-12, FEPR, 6-4, 2284-8, 39343-2, 2-9, 91450-9, 89579-7, 5130-0, 23348-1, 41714-9, 32121-0, 3357-1, 8092-9, 41306-3, 45294-2, 57922-4, 42942-7, 05057-1 #### [facility] ([id number]) [address] [place] [address], [address] [place] [address] Mejia extractable nuclear Ab +Ribonucleoprotein extractable nuclear IgG Qn (S)on 09-23-2023 MEJIA/AUTOMOTIVE GLASS INSTALLER AB IGG <0.2 Normal <1.0 [facility] Comment on above: Performed By: #### C BCA, CMP, 1987-, FEPR, 2276-4, 2284-8, 63021-5, 2132-9, 13900-5, 30903-7, 5130-0, 09400-4, 61570-1, 76959-0, 3357-1, 8092-9, 58797-9, 81716-9, 16867-2, 59091-2, 56375-6 #### [facility] ([id number]) [address] [place] [address], [address] [place] [address] Mejia extractable nuclear Ig G Qn (S)on 09-23-2023 ANTI-MEJIA AB IGG <0.2 Normal <1.0 [facility] Comment on above: Performed By: #### C BCA, CMP, 1987-12, FEPR, 2276-4, 2284-8, 82540-7, 2132-9, 96863-0, 28864-1, 5130-0, 57577-3, 26990-2, 89337-7, 3357-1, 8092-9, 95634-5, 79751-5, 37447-5, 87658-6, 34475-4 #### [facility] ([id number]) [address] [place] [address], [address] [place] [address] Mejia/AUTOMOTIVE GLASS INSTALLER AB IgGon 4 Mejia extractable nuclear Ab+Ribonucleoprotein extractable nuclear IgG Qn (S) [facility] Surgical Pathologyon 024 Surgical Pathology Normal [facility] Comment on above: Result Comment: [facility] [address] [place], [place] [address] Flow Cytometry Patient Name:JOSE DAVIDMoisesAccession #:[id number]. Rec. #:[id number]:Magalys [facility] Hospital[facility]:4DOB:1945 (Age: 78)Location:H GEN 8 ACUTE E064Gvuunpxk:09/23/2023Gender: Hans. Type:ToledoReported:Priority:RBjim #:[id number] Class:TTH Special Procedure OnlyPhysician(s): Charleen Chan MD Rabia Zubair, M.D. Ahmed Elsayed, [...] patterns of antigen expression are not seen. [place] on the lymphoid population demonstrates a mixed population of phenotypically unremarkable T-cells, natural killer cells, and polyclonal B-cells, without a detectable monoclonal population. Immunophenotyping antibodies tested: CD2, CD3, CD4, CD5, CD7, CD8, CD10, CD13, CD16, CD19, CD20, CD23, CD33, CD34, CD38, CD43, CD45, CD56, CD117, CD123, CD138, [place], and Lambda. Immunophenotyping Comment: Immunophenotyping has been used in this diagnostic evaluation. This test was developed and its performance characteristics determined by the [facility] Clinical [facility] Department. It has not been [...] (Vitamin B12) [Mass/Vol] 248 pg/mL Normal 180-914 [facility] Comment on above: Performed By: #### C BCA, CMP, 1987-12, FEPR, 2276-4, 2284-8, 19197-9, 2132-9, 55374-3, 64341-3, 5130-0, 11346-6, 44499-1, 10471-0, 3357-1, 8092-9, 52218-0, 65937-9, 20126-0, 70399-1, 15068-2 #### [facility] ([id number]) [address] [facility], [address] [place] [address] Vitamin B12on 09-23-2023 Cobalamin (Vitamin B12) [Mass/Vol] 248 pg/mL 180 - 914 pg/mL [facility] dRVVT/dRVVT.excess phospholi pid Coag (PPP) [Ratio]on 09-23-2023 DILUTE KORI'S VIPER VENOM Negative Normal [facility] Comment on above: Performed By: #### C SHARATH, [facility], 1987-12, FEPR, 2276-4, 2284-8, 81146-4, 2132-9, 41284-8, 49278-4, 5130-0, 65793-2, 28553-0, 06705-3, 3357-1, 8092-9, 93814-7, 56402-0, 09285-2, 78407-3, 71508-3 #### [facility] ([id number]) [address] [place] [address], [address] [place] [address] CT CSPINE WO CONon 3 CT CSPINE [...] 2022-12-25 08:22 Normal [facility] XR KNEE RT 4V or >on 022 [...] lateral and patellofemoral compartments where there is untl-tt-uedu contact. 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 Electronically authenticated by: KARAN JENKINS Date: 2022-04-25 19:06 Normal [facility] Patient Educationon 09-10-19 Patient Education Nutrition BMI [...] height. This can be done either in [place] ([place] or metric measurements. Note that charts are available to help you find your BMI quickly and easily without having to do these calculations yourself. To calculate your BMI in Faroese ([place] measurements, your health care provider will: [...] problems. ? BMI can be measured using Faroese measurements or metric measurements. ? To interpret [...] 04/22/2005 Document Revised: 07/24/2018 Document Reviewed: 06/24/2018 [employer] Patient Education ? 2019 [employer] Obstetrics and Gynecology Overactive Bladder, Adult [...] A spina (more content not included)... Normal [facility] 09-10-2021 [facility] [id number] 102 [id number]#1.00C D:127 Normal [facility] [id number] 107 [id number] D:127 Normal [facility] Urology Office/Clinic Noteon 09-10-2021 Urology Office/Clinic [...] genitourinary system) Interesting patient still working at [employer] which came here the store when I [...] URL Within 1 year, only if needed [address] [place] [address]- Additional Instructions: Patient Education BMI for Adults [...] Protein Urine Dipstick: Negative (09/10/21 08:26:00) Specific [place] Urine Dipstick: 1.025 (09/10/21 08:26:00) Urine Appearance Urine Dipstick: Clear (09/10/21 08:26:00) Urine Color Urine Dipstick: Yellow (09/10/21 08:26:00) Urobilinogen Urine Dipstick: Normal 0.2-1 EU/dl (09/10/21 08:26:00) pH Urine Dipstick: 5 (09/10/21 08:26:00) Normal [facility] Comment on above: Result Comment: Elec tronically Signed By: Gilbert NAPOLES MD\.br\Date and Time Signed: 09/10/21 08:49 EST\.br\Electronically Co-Signed By: Aurora Hdz MA\.br\Date and Time Co-Signed: 09/10/21 08:46 EST Physician Orderon 09-07-2021 Physician Order [id number]#1.00C D:127 Normal [facility] Vital Signs Date Time Vital Sign Value Performing Clinician Facility 05-23-2025 09:43-0400 Body height 152.4 cm Giovanna Graf APRN Work Phone: [facility] 05-23-2025 09:43-0400 Body mass index (BMI) [Ratio] 28.5 kg/m2 Giovanna Graf APRN Work Phone: [facility] 05-23-2025 09:43-0400 Body temperature 95.9 [degF] Giovanna Graf APRN Work Phone: [facility] 05-23-2025 09:43-0400 Body weight 66.22 kg Giovanna Graf APRN Work Phone: [facility] 05-23-2025 09:43-0400 Diastolic blood pressure 78 mm[Hg] Giovanna Graf APRN Work Phone: [facility] 05-23-2025 09:43-0400 Heart rate 86 /min Giovanna Graf APRN Work Phone: [facility] 05-23-2025 09:43-0400 SaO2% (BldA) [Mass fraction] 97 % Giovanna Lesia SCHMITTN Work Phone: [facility] 05-23-2025 09:43-0400 Systolic blood pressure 126 mm[Hg] Giovanna Alanisjen DRAFTER PATENT Work Phone: [facility] 05-17-2025 13:19-0400 Body height 152.4 cm Giovanna Alanisjen DRAFTER PATENT Work Phone: [facility] 05-17-2025 13:19-0400 Body mass index (BMI) [Ratio] 29.2 kg/m2 Giovanna Lesia SCHMITTN Work Phone: [facility] 05-17-2025 13:19-0400 Body temperature 96.6 [degF] Giovanna Lesia SCHMITTN Work Phone: [facility] 05-17-2025 13:19-0400 Body weight 68.03 kg Giovanna Alanisjen DRAFTER PATENT Work Phone: [facility] 05-17-2025 13:19-0400 Diastolic blood pressure 78 mm[Hg] Giovanna Alanisjen DRAFTER PATENT Work Phone: [facility] 05-17-2025 13:19-0400 Heart rate 83 /min Giovanna Alanisjen SCHMITTN Work Phone: [facility] 05-17-2025 13:19-0400 SaO2% (BldA) [Mass fraction] 94 % Giovanna Lesia DRAFTER PATENT Work Phone: [facility] 05-17-2025 13:19-0400 Systolic blood pressure 120 mm[Hg] Giovanna Lesia DRAFTER PATENT Work Phone: [facility] 01-24-2025 09:48-0400 Body height 157.5 cm Myra MONDRAGON Work Phone: [facility] 01-24-2025 09:48-0400 Body mass index (BMI) [Ratio] 25.27 kg/m2 Myra Samy DRAFTER PATENT-AUXILIARY EQUIPMENT TENDER Work Phone: [facility] 01-24-2025 09:48-0400 Body temperature 98.01 [degF] Myra Samy DRAFTER PATENT-AUXILIARY EQUIPMENT TENDER Work Phone: [facility] 01-24-2025 09:48-0400 Body weight 62.69 kg Myra Samy DRAFTER PATENT-AUXILIARY EQUIPMENT TENDER Work Phone: [facility] 01-24-2025 09:48-0400 Diastolic blood pressure 69 mm[Hg] Myra Samy DRAFTER PATENT-AUXILIARY EQUIPMENT TENDER Work Phone: [facility] 01-24-2025 09:48-0400 Heart rate 90 /min Myra Samy DRAFTER PATENT-AUXILIARY EQUIPMENT TENDER Work Phone: [facility] 01-24-2025 09:48-0400 Respiratory rate 16 /min Myra Samy DRAFTER PATENT-AUXILIARY EQUIPMENT TENDER Work Phone: [facility] 01-24-2025 09:48-0400 SaO2% (BldA) [Mass fraction] 98 % Myra Samy DRAFTER PATENT-AUXILIARY EQUIPMENT TENDER Work Phone: [facility] 01-24-2025 09:48-0400 Systolic blood pressure 139 mm[Hg] Myra Samy DRAFTER PATENT-AUXILIARY EQUIPMENT TENDER Work Phone: [facility] 12-16-2024 13:54-0400 Body height 152.4 cm [facility] 12-16-2024 13:54-0400 Body mass index (BMI) [Ratio] 26.5 kg/m2 [facility] 12-16-2024 13:54-0400 Body temperature 98.3 [degF] [facility] 12-16-2024 13:54-0400 Body weight 61.68 kg [facility] 12-16-2024 13:54-0400 Diastolic blood pressure 78 mm[Hg] [facility] 12-16-2024 13:54-0400 Heart rate 106 /min [facility] 12-16-2024 13:54-0400 SaO2% (BldA) [Mass fraction] 97 % [facility] 12-16-2024 13:54-0400 Systolic blood pressure 120 mm[Hg] [facility] 10-13-2024 14:35-0500 Body height 152.4 cm [facility] 10-13-2024 14:35-0500 Body mass index (BMI) [Ratio] 26.4 kg/m2 [facility] 10-13-2024 14:35-0500 Body temperature 96 [degF] [facility] 10-13-2024 14:35-0500 Body weight 61.46 kg [facility] 10-13-2024 14:35-0500 Diastolic blood pressure 80 mm[Hg] [facility] 10-13-2024 14:35-0500 Heart rate 82 /min [facility] 10-13-2024 14:35-0500 SaO2% (BldA) [Mass fraction] 97 % [facility] 10-13-2024 14:35-0500 Systolic blood pressure 126 mm[Hg] [facility] 10-11-2024 09:31-0500 Body height 157.5 cm Myra Cota APRN-RIVKA Work Phone: [facility] 10-11-2024 09:31-0500 Body mass index (BMI) [Ratio] 24.58 kg/m2 Myra Cota APRN-AUXILIARY EQUIPMENT TENDER Work Phone: [facility] 10-11-2024 09:31-0500 Body temperature 97.81 [degF] Myra Cota APRN-AUXILIARY EQUIPMENT TENDER Work Phone: [facility] 10-11-2024 09:31-0500 Body weight 60.96 kg Myra Cota APRN-AUXILIARY EQUIPMENT TENDER Work Phone: [facility] 10-11-2024 09:31-0500 Diastolic blood pressure 76 mm[Hg] Myra Samy DRAFTER PATENT-AUXILIARY EQUIPMENT TENDER Work Phone: [facility] 10-11-2024 09:31-0500 Heart rate 76 /min Myra Samy DRAFTER PATENT-AUXILIARY EQUIPMENT TENDER Work Phone: [facility] 10-11-2024 09:31-0500 Respiratory rate 18 /min Myramaribel Cota DRAFTER PATENT-AUXILIARY EQUIPMENT TENDER Work Phone: [facility] 10-11-2024 09:31-0500 SaO2% (BldA) [Mass fraction] 100 % Myranathanael Cota DRAFTER PATENT-AUXILIARY EQUIPMENT TENDER Work Phone: [facility] 10-11-2024 09:31-0500 Systolic blood pressure 152 mm[Hg] Myra Cota DRAFTER PATENT-AUXILIARY EQUIPMENT TENDER Work Phone: [facility] 07-12-2024 13:05-0500 Body height 152.4 cm [facility] 07-12-2024 13:05-0500 Body mass index (BMI) [Ratio] 26 kg/m2 [facility] 07-12-2024 13:05-0500 Body temperature 97.3 [degF] [facility] 07-12-2024 13:05-0500 Body weight 60.44 kg [facility] 07-12-2024 13:05-0500 Diastolic blood pressure 72 mm[Hg] [facility] 07-12-2024 13:05-0500 Heart rate 90 /min [facility] 07-12-2024 13:05-0500 SaO2% (BldA) [Mass fraction] 96 % [facility] 07-12-2024 13:05-0500 Systolic blood pressure 118 mm[Hg] [facility] 04-13-2024 10:47-0400 Body height 152.4 cm [facility] 04-13-2024 10:47-0400 Body mass index (BMI) [Ratio] 25.7 kg/m2 [facility] 04-13-2024 10:47-0400 Body weight 59.87 kg [facility] 04-13-2024 10:47-0400 Diastolic blood pressure 76 mm[Hg] [facility] 04-13-2024 10:47-0400 Heart rate 81 /min [facility] 04-13-2024 10:47-0400 SaO2% (BldA) [Mass fraction] 99 % [facility] 04-13-2024 10:47-0400 Systolic blood pressure 122 mm[Hg] [facility] 02-05-2024 11:56-0400 Body mass index (BMI) [Ratio] 23.92 kg/m2 Mouna Bautista MD Work Phone: [facility] 02-05-2024 11:56-0400 Body weight 59.33 kg Mouna Bautista MD Work Phone: [facility] 02-05-2024 11:56-0400 Diastolic blood pressure 81 mm[Hg] Mouna Bautista MD Work Phone: [facility] 02-05-2024 11:56-0400 Heart rate 78 /min Mouna Bautista MD Work Phone: [facility] 02-05-2024 11:56-0400 SaO2% (BldA) [Mass fraction] 96 % Mouna Bautista MD Work Phone: [facility] 02-05-2024 11:56-0400 Systolic blood pressure 136 mm[Hg] Mouna Bautista MD Work Phone: [facility] 01-02-2024 13:46-0400 Body height 157.5 cm Mahnaz Ochoa MD Work Phone: [facility] 01-02-2024 13:46-0400 Body mass index (BMI) [Ratio] 23.5 kg/m2 Mahnaz Ochoa MD Work Phone: [facility] 01-02-2024 13:46-0400 Body weight 58.29 kg Mahnaz Ochoa MD Work Phone: [facility] 01-02-2024 13:46-0400 Diastolic blood pressure 86 mm[Hg] Mahnaz Ochoa MD Work Phone: [facility] 01-02-2024 13:46-0400 Heart rate 86 /min Mahnaz Ohcoa MD Work Phone: [facility] 01-02-2024 13:46-0400 Systolic blood pressure 152 mm[Hg] Mahnaz Ochoa MD Work Phone: [facility] 12-29-2023 09:05-0400 Body height 152.4 cm [facility] 12-29-2023 09:05-0400 Body mass index (BMI) [Ratio] 25.4 kg/m2 [facility] 12-29-2023 09:05-0400 Body temperature 97.5 [degF] [facility] 12-29-2023 09:05-0400 Body weight 58.96 kg [facility] 12-29-2023 09:05-0400 Heart rate 86 /min [facility] 12-29-2023 09:05-0400 Respiratory rate 16 /min [facility] 12-29-2023 09:05-0400 SaO2% (BldA) [Mass fraction] 96 % [facility] 11-06-2023 15:01-0400 Body height 157.5 cm Adam Anna MD Work Phone: [facility] 11-06-2023 15:01-0400 Body mass index (BMI) [Ratio] 22.09 kg/m2 Adam Anna MD Work Phone: [facility] 11-06-2023 15:01-0400 Body temperature 98.6 [degF] Adam Anna MD Work Phone: [facility] 11-06-2023 15:01-0400 Body weight 54.8 kg Adam Anna MD Work Phone: [facility] 11-06-2023 15:01-0400 Diastolic blood pressure 65 mm[Hg] Adam Anna MD Work Phone: [facility] 11-06-2023 15:01-0400 Heart rate 109 /min Adam Anna MD Work Phone: [facility] 11-06-2023 15:01-0400 Respiratory rate 24 /min Adam Anna MD Work Phone: [facility] 11-06-2023 15:01-0400 SaO2% (BldA) [Mass fraction] 97 % Adam Anna MD Work Phone: [facility] 11-06-2023 15:01-0400 Systolic blood pressure 151 mm[Hg] Adam Anna MD Work Phone: [facility] 10-16-2023 11:04-0500 Body height 152.4 cm [facility] 10-16-2023 11:04-0500 Body mass index (BMI) [Ratio] 23.6 kg/m2 [facility] 10-16-2023 11:04-0500 Body weight 54.88 kg [facility] 10-16-2023 11:04-0500 Diastolic blood pressure 72 mm[Hg] [facility] 10-16-2023 11:04-0500 Heart rate 88 /min [facility] 10-16-2023 11:04-0500 SaO2% (BldA) [Mass fraction] 98 % [facility] 10-16-2023 11:04-0500 Systolic blood pressure 134 mm[Hg] [facility] 10-16-2023 09:50-0500 Diastolic blood pressure 74 mm[Hg] Mouna Bautista MD Work Phone: [facility] 10-16-2023 09:50-0500 Heart rate 72 /min Mouna Bautista MD Work Phone: [facility] 10-16-2023 09:50-0500 Systolic blood pressure 140 mm[Hg] Mouna Bautista MD Work Phone: [facility] 10-16-2023 09:49-0500 Body height 157.5 cm Mouna Bautista MD Work Phone: [facility] 10-16-2023 09:49-0500 Body mass index (BMI) [Ratio] 21.51 kg/m2 [facility] 10-16-2023 09:49-0500 Body weight 53.34 kg Mouna Bautista MD [facility] 10-16-2023 09:49-0500 Respiratory rate 18 /min Mouna Bautista MD Work Phone: [facility] [employer] 09-26-2023 15:31-0500 Body temperature 98.2 [degF] Bart Milian MD [facility] 09-26-2023 15:31-0500 Heart rate 103 /min Bart Milian MD [facility] 09-26-2023 15:31-0500 Respiratory rate 16 /min Bart Milian MD Work Phone: [facility] [employer] 09-26-2023 15:31-0500 SaO2% (BldA) [Mass fraction] 96 % Bart Milian MD [facility] 09-26-2023 07:20-0500 Diastolic blood pressure 84 mm[Hg] Bart Milian MD [facility] 09-26-2023 07:20-0500 Systolic blood pressure 152 mm[Hg] Bart Milian MD Work Phone: [facility] [employer] [facility] 09-24-2023 13:40-0500 Body height 157.5 cm Bart Milian MD [facility] 09-24-2023 13:40-0500 Body mass index (BMI) [Ratio] 21.21 kg/m2 Bart Milian MD Work Phone: [facility] [employer] [facility] 09-24-2023 13:40-0500 Body weight 52.6 kg Bart Milian MD Work Phone: [facility] Encounters Encounter Date Encounter Type Care Provider Facility Start: 05-23-2025 End: 05-23-2025 ambulatory Giovanna Alanisjen HUANG Work Phone: [facility] Work Phone: Start: 05-23-2025 End: 05-23-2025 Patient encounter procedure Giovanna Lesia HUANG [facility] Work Phone: Start: 05-17-2025 End: 05-17-2025 ambulatory Giovanna Alanisjen HUANG Work Phone: [facility] Work Phone: Start: 05-17-2025 End: 05-17-2025 Patient encounter procedure Giovanna Alanisbrendancosme REINA [facility] Work Phone: Start: 03-15-2025 End: 03-15-2025 ambulatory [facility] Start: 02-01-2025 End: 02-01-2025 ambulatory [facility] Start: 01-24-2025 End: 01-24-2025 Office outpatient visit 25 minutes Myra Cota APRN-AUXILIARY EQUIPMENT TENDER Work Phone: Adelaida Hobbs [facility] - Medical Oncology Comment on above: Iron deficiency (Kathleen vinh Dx); Normocytic anemia; Thrombocytosis; Anemia, unspecified type Start: 01-24-2025 End: 01-24-2025 ambulatory MYRA COTA [facility] Start: 12-16-2024 End: 12-16-2024 ambulatory [facility] Work Phone: Start: 12-16-2024 End: 12-16-2024 Patient encounter procedure [facility] Work Phone: Start: 12-10-2024 Non-patient / Non-visit [facility] Work Phone: Start: 12-10-2024 Non-patient / Non-visit [facility] Work Phone: Start: 11-22-2024 Non-patient / Non-visit [facility] Work Phone: Start: 11-06-2024 Non-patient / Non-visit [facility] Work Phone: Start: 10-13-2024 End: 10-13-2024 ambulatory [facility] Work Phone: Start: 10-13-2024 End: 10-13-2024 Patient encounter procedure [facility] Work Phone: Start: 10-11-2024 End: 10-11-2024 Office outpatient visit 40 minutes Myra Cota DRAFTER PATENT-[facility] Work Phone: [facility] - [facility] Oncology Comment on above: Normocytic anemia (P rimary Dx); Thrombocytosis; Anemia, unspecified type; Iron deficiency; Giant cell arteritis ([facility]); Vision blurred Start: 10-11-2024 End: 10-11-2024 ambulatory MYRA COTA [facility] Start: 10-06-2024 End: 10-06-2024 ambulatory [facility] Start: 09-02-2024 Non-patient / Non-visit [facility] Work Phone: Start: 07-16-2024 End: 07-16-2024 Patient encounter procedure [facility] Work Phone: Start: 07-12-2024 End: 07-12-2024 ambulatory [facility] Work Phone: Start: 07-12-2024 End: 07-12-2024 Patient encounter procedure [facility] Work Phone: Start: 07-07-2024 Non-patient / Non-visit [facility] Work Phone: Start: 05-05-2024 End: 05-05-2024 ambulatory [facility] Start: 04-30-2024 Non-patient / Non-visit [facility] Work Phone: Start: 04-14-2024 Patient encounter procedure [facility] Start: 04-13-2024 End: 04-13-2024 ambulatory [facility] Work Phone: Start: 04-13-2024 End: 04-13-2024 Patient encounter procedure [facility] Work Phone: Start: 03-08-2024 End: 03-08-2024 Orders Only Roxie aguiar [place] - [facility] On[facility] Comment on above: Normocytic anemia (P rimary Dx); Thrombocytosis; Anemia, unspecified type Start: 03-05-2024 Non-patient / Non-visit [facility] Work Phone: Start: 02-05-2024 End: 02-05-2024 Office outpatient visit 10 minutes Mouna Bautista MD Work Phone: [facility] Comment on above: Giant cell arteritis (CMS-HCC) (Primary Dx) Start: 02-05-2024 ambulatory MOUNA BAUTISTA [facility] Start: 01-02-2024 End: 01-02-2024 ambulatory [facility] Start: 01-02-2024 End: 01-02-2024 Office outpatient visit 25 minutes Mahnaz Ochoa MD Work Phone: [facility] Comment on above: Giant cell arteritis (CMS-HCC) (Primary Dx) Start: 12-29-2023 End: 12-29-2023 ambulatory [facility] Work Phone: Start: 12-29-2023 End: 12-29-2023 Patient encounter procedure [facility] Work Phone: Start: 12-29-2023 Non-patient / Non-visit [facility] Work Phone: Start: 11-06-2023 End: 11-06-2023 Office outpatient visit 40 minutes Adam Anna MD Work Phone: Adelaida Hobbs [facility] - Medical Oncology Comment on above: Normocytic anemia (P rimary Dx); Thrombocytosis Start: 11-06-2023 Orders Only Malinda Arrington RN [facility] - [facility] Comment on above: Giant cell arteritis (CMS-HCC) (Primary Dx); Stroke-like symptoms; Vision blurred; Anemia, unspecified type Start: 10-30-2023 Non-patient / Non-visit [facility] Work Phone: Start: 10-17-2023 Telephone encounter Beronica [facility] Comment on above: Med Refill Start: 10-16-2023 End: 10-16-2023 ambulatory [facility] Work Phone: Start: 10-16-2023 End: 10-16-2023 Patient encounter procedure [facility] Work Phone: Start: 10-16-2023 End: 10-16-2023 ambulatory [facility] Paul ALYSIA [facility] Start: 10-16-2023 End: 10-16-2023 Office outpatient visit 15 minutes Mouna Bautista MD Work Phone: [facility] Comment on above: Giant cell arteritis (CMS-HCC) (Primary Dx) Start: 09-29-2023 Telephone encounter Rosa Gaitan [facility] Comment on above: Hospital Follow-up Start: 09-27-2023 End: 09-27-2023 Evaluation and management of inpatient RICKIE Marisol STEWART [facility] Start: 09-24-2023 End: 09-27-2023 Evaluation and management of inpatient TREVIN [facility] Start: 09-24-2023 End: 09-27-2023 Evaluation and management of inpatient CARLITOS BREWER ILYA [facility] Start: 09-24-2023 ambulatory JOHN Ambrocio [facility] Start: 09-23-2023 End: 09-26-2023 Evaluation and management of inpatient [facility] Start: 09-23-2023 End: 09-26-2023 Evaluation and management of inpatient Tono Pan MD Work Phone: [facility] - GEN 8 Acute Comment on above: B12 deficiency (Prim lisa Dx); Thrombocytosis; Vision blurred; Temporal arteritis (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 Bart Milian MD Work Phone: Start: [...] History of cataract extraction with lens replacement Giovanna Graf APRN AUXILIARY EQUIPMENT TENDER Plan of Treatment Date Care Activity Detail Author Start: 10-11-2025 Tobacco Screening Tobacco Screening [facility] Start: 05-23-2025 Patient referral [facility] Work Phone: Start: 05-09-2025 End: 05-09-2025 Patient encounter procedure 05/09/2025 10:45 AM EDT Office Visit Adelaida Keane [facility] - Medical Oncology [address] [place] [phone] Myra Cota APRN-RIVKA [address] [place] [address], [address] [place] [address] Adelaida Keane [facility] Oncology Start: 04-25-2025 Influenza vaccination Influenza Vaccine [facility] Start: 03-08-2025 Adult BMI Screening Adult BMI Screening [facility] Start: 02-04-2025 Adult BMI Screening Adult BMI Screening [facility] Start: 02-04-2025 Tobacco Screening Tobacco Screening [facility] Start: 01-01-2025 Adult BMI Screening Adult BMI Screening [facility] Start: 01-01-2025 Tobacco Screening Tobacco Screening [facility] Start: 12-10-2024 End: 12-10-2024 Patient encounter procedure 12/10/2024 2:30 PM EDT Office Visit Adelaida Keane [facility] - Medical Oncology [address] [place] [phone] [place] [address] [place] [address] [address] [place] [address] Adelaida Keane [facility] Start: 11-05-2024 Adult BMI Screening Adult BMI Screening [facility] Start: 10-16-2024 Adult BMI Screening Adult BMI Screening [facility] Start: 10-16-2024 Tobacco Screening Tobacco Screening [facility] Start: 09-24-2024 Adult BMI Screening Adult BMI Screening [facility] Start: 09-24-2024 Tobacco Screening Tobacco Screening [facility] Start: 09-23-2024 Depression Screening Depression Screening [facility] Start: 09-09-2024 End: 09-09-2024 Patient encounter procedure 09/09/2024 1:15 PM EST Office Visit Adelaida Hobbs Addison [facility] - Medical Oncology [facility] [place] [address] Adam Anna MD [address] [place] [address] Adelaiad L Addison [facility] - [facility] Oncology Start: 04-25-2024 Influenza vaccination Influenza Vaccine [facility] Start: 03-05-2024 End: 03-05-2024 Patient encounter procedure 03/05/2024 2:15 PM EDT Office Visit Adelaida Keane [facility] - [facility] Oncology [address] [place] [phone] Adam Anna MD [address] [place] [address] Adelaida Hobbs Addison [facility] Start: 02-05-2024 End: 02-05-2024 Patient encounter procedure 02/05/2024 11:30 AM EDT Office Visit [facility] [address] [place] [address] Mouna Bautista MD [address], [address] [place] [address] [facility] Start: 01-15-2024 End: 01-15-2024 Patient encounter procedure 01/15/2024 11:00 AM EDT Office Visit [facility] [address] [place] [address] Mouna Bautista MD [address], [address] [place] [address] [facility] Start: 01-02-2024 End: 01-02-2024 Patient encounter procedure 01/02/2024 1:15 PM EDT Office Visit [facility] [place] [address] Darci Santana MD [address] [place] [address] [facility] Start: 12-05-2023 End: 12-05-2023 Patient encounter procedure 12/05/2023 10:15 AM EDT Office Visit [facility] [address] [place] [phone] Darci Santana MD [address] [place] [address] [facility] Start: 11-06-2023 End: 11-06-2023 Patient encounter procedure 11/06/2023 3:30 PM EDT Office Visit Adelaida Hobbs [facility] Oncology [address] [place] [phone] Adam Anna MD [address] [place], [place] [id number] Adelaida Hobbs Addison [facility] Start: 10-16-2023 End: 10-16-2023 Patient encounter procedure 10/16/2023 9:10 AM EST Office Visit [facility] [address] [place] [address] Mouna Bautista MD [address], [address] [place] [address] [facility] Start: 04-25-2023 Influenza vaccination [facility] Start: 2011 Fall Risk Screening [facility] Start: 1996 Administration of varicella zoster vaccine Zoster (Shingles) Vaccine (1 of 2) [facility] Start: 1965 DTaP,Tdap and Td Vaccines (1 - Tdap) DTaP,Tdap and Td Vaccines (1 - Tdap) [facility] Start: 1946 Medicare Annual Wellness Visit Medicare Annual Wellness Visit [facility] End: 09-26-2024 Basic metabolic 2000 panel - Serum or Plasma Basic Metabolic Panel Lab Routine Vision blurred 1 Occurrences starting 09/26/2023 until 09/26/2024 [facility] Comment on above: 1 Occurrences starting 09/26/2023 until 09/26/2024 End: 09-26-2024 CBC W Auto Differential panel - Blood CBC auto differential Lab Routine Thrombocytosis 1 Occurrences starting 09/26/2023 until 09/26/2024 [facility] Comment on above: 1 Occurrences starting 09/26/2023 until 09/26/2024 End: 11-05-2024 CBC W Auto Differential panel - Blood CBC auto differential Lab Routine Giant cell arteritis ([facility]) Stroke-like symptoms Vision blurred Anemia, unspecified type every 2 months for 2 Occurrences starting 11/06/2023 until 11/05/2024 [employer] Work Phone: Comment on above: every 2 months for 2 Occurrences startin g 11/06/2023 until 11/05/2024 End: 01-24-2026 CBC W Auto Differential panel - Blood CBC with auto diff Lab Routine Normocytic anemia Thrombocytosis Anemia, unspecified type Iron deficiency prn for 12 Occurrences starting 01/24/2025 until 01/24/2026 [employer] Work Phone: Comment on above: prn for 12 Occurrences starting 01/25/20 until 01/24/2026 End: 01-24-2026 Cyanocobalamin vitamin b-12 Vitamin B12 Lab Routine Normocytic anemia Thrombocytosis Anemia, unspecified type Iron deficiency prn for 12 Occurrences starting 01/24/2025 until 01/24/2026 [employer] Comment on above: prn for 12 Occurrences starting 01/25/20 until 01/24/2026 End: 11-05-2024 Ferritin [Mass/volume] in Serum or Plasma Ferritin Lab Routine Giant cell arteritis ([facility]) Stroke-like symptoms Vision blurred Anemia, unspecified type every 2 months for 2 Occurrences starting 11/06/2023 until 11/05/2024 [facility] Comment on above: every 2 months for 2 Occurrences startin g 11/06/2023 until 11/05/2024 End: 01-24-2026 Ferritin [Mass/volume] in Serum or Plasma Ferritin Lab Routine Normocytic anemia Thrombocytosis Anemia, unspecified type Iron deficiency prn for 12 Occurrences starting 01/24/2025 until 01/24/2026 [employer] Comment on above: prn for 12 Occurrences starting 01/25/20 until 01/24/2026 End: 09-23-2023 Flow cytometry blood only [employer] Work Phone: Comment on above: Once for 1 Occurrences starting 09/23/19 24 until 09/23/2023 Immunoelectrophoresi s for Therapy Monitoring Immunoelectrophoresis for Therapy Monitoring Lab Routine 09/23/2023 12:56 PM [employer] Work Phone: End: 11-05-2024 Iron and TIBC Iron and TIBC Lab Routine Giant cell arteritis ([facility]) Stroke-like symptoms Vision blurred Anemia, unspecified type every 2 months for 2 Occurrences starting 11/06/2023 until 11/05/2024 [employer] Comment on above: every 2 months for 2 Occurrences startin g 11/06/2023 until 11/05/2024 End: 01-24-2026 Iron and TIBC Iron and TIBC Lab Routine Normocytic anemia Thrombocytosis Anemia, unspecified type Iron deficiency prn for 12 Occurrences starting 01/24/2025 until 01/24/2026 [employer] Comment on above: prn for 12 Occurrences starting 01/25/20 until 01/24/2026 Methylmalonate [Moles/volume] in Serum or Plasma Methylmalonic acid screen Lab Routine 09/23/2023 12:57 PM EST [facility] End: 09-23-2023 Methylmalonic acid screen Methylmalonic acid screen Lab Routine Once for 1 Occurrences starting 09/23/2023 until 09/23/2023 [facility] Work Phone: Comment on above: Once for 1 Occurrences starting 09/23/19 until 09/23/2023 Patient referral [facility] Work Phone: Protein electrophore sis, serum Protein electrophoresis, serum Lab Routine 09/23/2023 12:56 PM EST [facility] [employer] [facility] Payers Date Payer Category Payer Medicare HMO [id number] 2023 Medicare [id number] 2022 Medicare 2016 Private Health Insurance [id number] 1958 Medicare [id number] 1945 Unknown [id number] 2.16.84 0.1.992385.3.579.2.593 1945 Unknown [id number] 2.16.84 0.1.210418.3.579.2.593 1945 Unknown [id number] 2.16. 840.1.336006.3.579.2.196 1945 Unknown [id number] 2.16. 840.1.927800.3.579.2.196 1945 Unknown [id number] 2.16. 840.1.546849.3.579.2.196 1945 Unknown [id number] 2.16. 840.1.666621.3.579.2.196 1945 Unknown [id number] 2.16. 840.1.430156.3.579.2.196 1945 Unknown [id number] 2.16. 840.1.147784.3.579.2.196 1945 Unknown [id number] 2.16.8 40.1.770849.3.579.2.1286 1945 Unknown [id number] 2.16.8 40.1.908908.3.579.2.128 1945 Unknown [id number] 2.16.8 40.1.435708.3.579.2.128 1945 Unknown [id number] 2.16.8 40.1.973747.3.579.2.128 1945 Unknown [id number] 2.16.8 40.1.754366.3.579.2.128 1945 Unknown [id number] 2.16.8 40.1.466884.3.579.2.1285 1945 Unknown [id number] 2.16.8 40.1.664034.3.579.2.1285 1945 Unknown [id number] 2.16.8 40.1.578105.3.579.2.1285 1945 Unknown [id number] 2.16.8 40.1.643120.3.579.2.1285 1945 Unknown [id number] 2.16.8 40.1.682522.3.579.2.1285 1945 Unknown [id number] 2.16.8 40.1.811447.3.579.2.1285 1945 Unknown [id number] 2.16.8 40.1.027323.3.579.2.128 1945 Unknown [id number] 2.16.8 40.1.998818.3.579.2.128 1945 Unknown [id number] 2.16.8 40.1.071759.3.579.2.1285 1945 Unknown [id number] 2.16. 840.1.056236.3.579.2.1285 1945 Unknown [id number] 2.16. 840.1.453549.3.579.2.1285 1945 Unknown [id number] 2.16.8 40.1.352836.3.579.2.1286 Self-pay Self Pay [id number] Social History Date Type Detail Facility Start: 10-16-2023 End: 02-15-2025 Tobacco smoking status NHIS Ex-smoker (finding) [facility] Start: 1945 Sex Assigned At Female F [facility] Start: 03-30-2015 End: 07-12-2024 Sex Female (finding) [facility] Start: 09-23-2023 Tobacco smoking stat us DEIS Never smoked tobacco [facility] Start: 09-23-2023 Tobacco use and exposure Smoke less tobacco non-user [facility] Start: 01-02-2024 End: 10-11-2024 Alcoholic beverage intake Lifetime non-drinker (finding) [facility] Start: 10-05-2020 End: 09-23-2023 History of Social function [facility] Start: 10-05-2020 End: 09-23-2023 Alcohol Use Disorder Identification Test - Consumption [AUDIT-C] [facility] How often to you hav e a drink containing alcohol? Never [facility] How many standard dr inks containing alcohol do you have on a typical day? Patient does not drink [facility] Start: 1945 Sex assigned at Not on file P [facility] Goals Date Patient Goal Desired Activity /State Personal health goal Comment on above: Formatting of this n ote might be different from the original. Evaluation of progress towards goal: Home with dtr, self care Clinical Notes 09-23-2023 to 05-17-2025 Note Date & Type Note Facility 05-17-2025 Evaluation note Diagnosis Onset Date Resolution Bilateral lower extremity edema acute May 17, 2025 1:04pm At high risk for falls acute Se ptember 2024 9:33am GERD (gastroesophageal reflux disease) acute May 23, 2025 9:33am History of cataract extraction with lens replacement acute May 23, 2025 9:33am Medicare annual wellness visit, subsequent acute May 23, 2025 9:33am Right knee pain acute May 23, 2025 9:33am Temporal arteritis acute Septem victor manuel 2024 9:33am Vision loss, bilateral acute Se ptember 2024 9:33am [facility] Work Phone: 1(919) 568-762507-22-2025 Note Attestation signed by Jt Jasso MD at 03/15/2025 9:30 PM GC: I saw this patient. I personally performed the critical/braswell portions that determines the level of service. I was directly involved in the management and treatment plan of the patient. I reviewed note and agree with the documentation Subjective Patient ID: Jose David is a 79 y.o. female who presents for follow up. HPI She was admitted to [facility] end of August 2023 due to [...] She hasn't had any other GCA symptoms. Today, she is doing okay. She denies any side effects from the prednisone. Review of Systems Constitutional: Positive for activity change and fatigue. Negative for appetite change, chills and fever. HENT: Negative for congestion and ear pain. Eyes: Positive for visual disturbance. Negative for pain and discharge. Respiratory: Negative [...] problems and confusion. Objective Visit Vitals BP 132/78 (BP Location: Left arm, Patient Position: Sitting) Pulse 78 Physical Exam Vitals and nursing note reviewed. [...] eye: Discharge present. Left eye: Discharge present. Conjunctiva/sclera: Conjunctivae normal. Comments: No pupillary responses Cardiovascular: Rate and Rhythm: Normal rate and [...] to evaluate disease activity - Continue prednisone at reduced dose of 7.5 mg daily x 1 month, followed by 5 mg thereafter and Actemra subcutaneous injections every 2 weeks as of 02/01/25 - Obtain ESR, lipid panel, CBC, CMP prior to next visit 2. Steroid use - DEXA Scan 02/15/25 with a T score of -3.6 3. Osteoporosis - Start Alendronate 70 mg tablets once weekly, patient advised to sit up-right after consuming this medication for atleast 30 minutes to avoid esophagitis. Patient advised to call the clinic for any concerns. 4. Actemra use - We discussed the risk of infection and need for lab testing every 3 months to monitor for toxicity, repeat labs ordered 5. Weak dorsalis pedis pulse 6. Left Sided Distal PAD - Obtained ankle/brachial index, right and left brachial indiced suggestive of normal overall arterial flow at rest. Toe-brachial indices suggesti (more content not included)...[facility]06-10-2025 Note Attestation signed by Jt Jasso MD at [...] follow up. HPI She was admitted to [facility] end of August 2023 due to [...] [facility] History of Present illness Narrative* Myra Cota, REINA-AUXILIARY EQUIPMENT TENDER - 01/24/2025 10:30 AM EDT Images from the original note were not included. [facility] [address] [place] [phone] 01/24/2025 Chief Complaint Patient presents with Follow-up [...] no significant past medical history presented to [facility] on 09/19/2023 due to blurry vision in left eye, she was told her optic disc was swollen and the patient was given a referral to milk house worker. Over the weekend patients vision in left eye continued to worsen and eventually lost all vision in left eye. Patient was seen by milk house worker 09/22/2023 and time she would decreased vision also in her right eye. It was recommended that she go straight to the emergency department, for concern for giant cell arteritis. Initially she went to [facility] where they gave her Solu-Medrol 250 mg IV 1 dose and then transferred her to [facility]. When she arrived at [facility] she had complete vision loss in [...] day, repeat CBC and iron study at [facility] in 2 months. Follow-up in 4 [...] patient/family/caregiver Referring and communicating with other health caregiver services home (not separately reported) Documenting clinical information in the electronic or other health record Independently interpreting results (not separately reported) and communicating results to the patient/family/caregiver Care coordination (not separately reported) Please note that portions of this note may have been generated using voice recognition [employer] dictation software. Although every effort was made to ensure the accuracy of any automated transcriptions, some errors may have occurred. ALANNA Garcia 03/08/24 1507 ALANNA Garcia 10/11/24 1457 ALANNA Garcia 01/24/25 1021 documented in this [facility]06-02-2025 Instructions* Patient Instructions* ALANNA Garcia - 01/24/2025 10:30 [...] panel ferritin vitamin B12 documented in this [facility]02-19-2025 Evaluation note* Diagnosis Onset Date Resolution Status Admit Date Left otitis media acute Februar y 2024 2:27pm Muscle spasm acute September 2:27pm Neck pain acute October 13, 2024 2:27pm GERD (gastroesophageal reflu x disease) acute December 16, 2024 1:50pm [facility] Work Phone: 1(854) 846-802602-17-2025 History of Present illness Narrative* Myra Cota, REINA-AUXILIARY EQUIPMENT TENDER - 10/11/2024 9:30 AM EST Images from the original note were not included. [facility] [address] [place] [phone] 10/11/2024 Chief Complaint Patient presents with [...] ferrous sulfate b.i.d.. She worked with her slitting machine operator helper tochange these medications. He placed her on a multivitamin daily. And she does have a lower dose [id number]. She tells me that once she gets [...] no significant past medical history presented to [facility] on 09/19/2023 due to blurry vision in left eye, she was told her optic disc was swollen and the patient was given a referral to milk house worker. Over the weekend patients vision in left eye continued to worsen and eventually lost all vision in left eye. Patient was seen by milk house worker 09/22/2023 and time she would decreased vision also in her right eye. It was recommended that she go straight to the emergency department, for concern for giant cell arteritis. Initially she went to [facility] where they gave her Solu-Medrol 250 mg IV 1 dose and then transferred her to [facility]. When she arrived at [facility] she had complete vision loss in [...] day, repeat CBC and iron study at [facility] in 2 months. Follow-up in 4 [...] patient/family/caregiver Referring and communicating with other health caregiver services home (not separately reported) Documenting clinical information in the electronic or other health record Independently interpreting results (not separately reported) and communicating results to the patient/family/caregiver Care coordination (not separately reported) Please note that portions of this note may have been generated using voice recognition [employer] dictation software. Although every effort was made to ensure the accuracy of any automated transcriptions, some errors may have occurred. ALANNA Garcia 03/08/24 1507 ALANNA Garcia 10/11/24 0537 documented in this encounterNewark HospitalInternational Telematics [id number] Instructions* Patient Instructions* ALANNA Garcia - 10/11/2024 [...] ferritin vitamin B12 folate documented in this encounterUniversity Hospitals Ely[facility] Center02-12-2025 NoteSubjective Patient ID: Jose David is a 79 y.o. female who presents for No chief complaint on file.. HPI She was admitted to [facility] end of August 2023 due to [...] testing every 3 months to monitor for toxicity.[facility] 05-05-2024 NoteSubjective Patient ID: Jose David is a 78 y.o. female who presents for Follow-up (1 headache a few weeks ago. Increased itching for a few months ). HPI She was admitted to [facility] end of August 2023 due to [...] testing every 3 months to monitor for toxicity.[facility] 04-13-2024 Evaluation note* Diagnosis Onset Date Resolution Status Admit Date At high risk for falls acute 2023 10:44am Dry skin dermatitis acute Augus t 2023 10:44am GERD (gastroesophageal reflu x disease) acute April 13 10:44am History of cataract extracti on with lens replacement acute March 10:44am Medicare annual wellness vis it, subsequent acute April 13 10:44am Temporal arteritis acute April 13, 2024 10:44am Vision loss, bilateral acute [facility] 2023 10:44am [facility] Work Phone: 1([phone]) 404-731607-15-2024 History of Present illness Narrative* Roxie Saldivar RN - 03/08/2024 2:46 PM EDT The patient is here for AMY follow up, labs and plan of care were reviewed with Myra CABRALES. The following recommendations were made: Continue ferrous sulfate 325 mg twice daily Continue vitamin B12 1000 mcg daily Labs in 3 months CBC-d, iron panel, ferritin, vitamin B12 Follow up in 6 months with same labs prior Patient & daughter verbalized understanding, AVS given documented in this encounterUniversity Hospitals Elyria Medical Center06-13-2024 History of Present illness Narrative* Mouna Bautista MD - 02/05/2024 11:40 AM EDT Images from the original note were not included. To: MERCEDES Portillo HPI: Jose David is a 78 y.o. [...] [facility] TONSILLECTOMY TUBAL LIGATION Social and Family History: [...] Interpersonal Safety: Unknown (10/17/2023) [facility] from [facility] [place] [facility] Fear of [...] orders for this visit: Giant cell arteritis ([facility]) Mouna Bautista MD, JULIANA, RPVI, FSVS, FACS [...] you for your understanding. documented in this encounterUniversity Hospitals Elyria Medical Center05-10-2024 History of Present illness Narrative* Mahnaz Ochoa MD - 01/02/2024 1:30 PM EDT Images from the original note were not included. [address] [facility] [phone] Patient: Jose David Date of : 1945 Encounter Date: 01/02/2024 Patient Care Team: Giovanna Graf APRN-SAMRA as PCP - General (Nurse Practitioner) Adam Anna MD as Consulting Physician (Hematology) History of Present Illness: The patient is a 78 y.o. female, a patient seen at [facility] by our service, and is here [...] was given a referral to [facility] eye Center? The patient states [...] the ED immediately. Patient initially went to [facility] and was given IV 250 mg Solu-Medrol once. She was then transferred to [facility] for further evaluation. Initial consideration with [...] head and CTA were reportedly done at [facility] and reported to be unremarkable. MRI [...] extend her arms outwards appropriately in botharms, [id number] testing within normal. There is no dysmetria. [...] reviewed the resident's note. documented in this encounterUniversity Hospitals Elyria Medical Center03-14-2024 History of Present illness Narrative* Malinda Arrington RN - 11/06/2023 3:46 PM EDT Patient is here for consult with Dr. Anna. Orders received for CBC, iron studies every 2 months (print out orders). F/u in 4 months. Calendar given to family member and labs orders to be drawn at [place]. documented in this encounterUniversity Hospitals Elyria Medical Center03-14-2024 History of Present illness Narrative* Adam Anna MD - 11/06/2023 3:30 PM EDT Images from the original note were not included. [facility] 11/06/23 Jose David is a 78 y.o. year old female seen today in the oncology clinic. Chief Complaint Patient presents with Follow-up History of Present Illness: Mrs. David is a 78 y.o. female with no significant past medical history presented to [facility] on 09/19/2023 due to blurry vision in left eye, she was told her optic disc was swollen and the patient was given a referral to milk house worker. Over the weekend patients vision in left eye continued to worsen and eventually lost all vision in left eye. Patient was seen by milk house worker 09/22/2023 and time she would decreased vision also in her right eye. It was recommended that she go straight to the emergency department, for concern for giant cell arteritis. Initially she went to [facility] where they gave her Solu-Medrol 250 mg IV 1 dose and then transferred her to [facility]. When she arrived at [facility] she had complete vision loss in [...] 09/25/2023 Performed by Kristel Reid MD at [facility] TONSILLECTOMY TUBAL LIGATION No family history [...] day, repeat CBC and iron study at [facility] in 2 months. Follow-up in 4 months. If patient can not tolerate oral iron supplement, consider IV iron treatment. Thank you. Adam Anna MD Please note that portions of this note were generated using voice recognition M*Modal dictation software. Although every effort was made to ensure the accuracy of this automated form building supervisor, some errors in form building supervisor may have occurred. CC: Patient Care Team: MERCEDES Portillo as PCP - General (Nurse Practitioner) Adam Anna MD as Consulting Physician (Hematology) PCP:Giovanna Graf Referring MD: John Patel DO documented in this encounterNewark HospitalMemorandom [facility] [id number] Instructions* Patient Instructions* Adam Anna MD - 11/06/2023 3:30 PM EDT CBC, iron studies every 2 months (print out orders). F/u in 4 months. documented in this encounterNewark HospitalMemorandom [facility] [id number] Miscellaneous Notes* Telephone Encounter - Beronica Taylor - 10/17/2023 11:39 AM EST Patients Malinda cuadra said that the patient will need refills before her appointment on 12/05/2023 Medication Refill request: Medication Name and Strength:vitamin B12 1,000 mcg Current dose & Frequency: Take 1 tablet daily actually taking - not what is listed on the prescription label 30 day or 90 day supply preferred:30 Pharmacy Name: [facility]/pharmacy #[id number] - [place], [place] - If already [...] or 90 day supply preferred:30 Pharmacy Name: [facility]/pharmacy #[id number] - [place], [place] - If already [...] will have to fill. documented in this encounterUniversity Hospitals Elyria Medical Center02-23-2024 Telephone encounter Note* Telephone Encounter [...] or 90 day supply preferred:30 Pharmacy Name: [facility]/pharmacy #[id number] - [place], [place] - If already [...] 90 day supply preferred: 30 Pharmacy Name: [facility]/pharmacy #[id number] - [place], [place] - If already on preferred pharmacy list - name only If new pharmacy - specify address & phone number [facility] HospitalBioNex Solutions [facility] [id number] Telephone encounter Note* Telephone Encounter - Shadia Hua - 10/17/2023 11:39 AM EST I have attempted to contact this patient by phone with the following results: left detailed messageregarding that since patient has not been seen in clinic PCP or the provider that prescribed medication will have to fill. [facility] HospitalWordStream [id number] History of Present illness Narrative* Mouna Bautista MD - 10/16/2023 9:10 AM EST Images from the original note were not included. [facility] [address] [facility] [phone] Subjective: Patient ID: Jose David is a [...] Vision blurred Stroke-like symptoms Giant cell arteritis ([facility]) Current Outpatient Medications: acetaminophen (TYLENOL [...] orders for this visit: Giant cell arteritis ([facility]) Plan Plan: Referral to rheumatology for management of temporal arteritis. Continue steroids in the meanwhile Mouna Bautista MD documented in this encounterNewark HospitalMemorandom [facility] [id number] Miscellaneous Notes* Telephone Encounter - Rosa Ovalles [...] OPINION? - [facility] 09/23-08/26/2023 5. PATIENT IS SCHEDULED ON/WITH: - 12/05/2023 at 10:[address] Santana documented in this encounterNewark HospitalNarzana Technologies02-05-2024 Telephone encounter Note* Telephone Encounter - Rosa [...] OPINION? - [facility] 09/23-08/26/2023 5. PATIENT IS SCHEDULED ON/WITH: - 12/05/2023 at 10:[address] Santana [facility]02-02-2024 Nurse Note* Caryn Briceno RN - 09/26/2023 5:38 PM EST Patient alert and oriented. IV and telemetry discontinued. All discharge instructions have been reviewed and are understood by the patient and daughter. Patient left the unit via wheelchair with all of their belongings and in no distress. Patient discharged home. [facility]02-02-2024 Nurse Note* Caryn Briceno RN - 09/26/2023 5:38 PM EST Patient alert and oriented. IV and telemetry discontinued. All discharge instructions have been reviewed and are understood by the patient and daughter. Patient left the unit via wheelchair with all of their belongings and in no distress. Patient discharged home. documented in this encounterUniversity Hospitals Elyria Medical Center02-02-2024 Hospital course Narrative* Bart Milian [...] who referred her to eye center in [place]. Over the weekend her left eye vision significantly deteriorated to a point where she could no longer see. On 09/22, she started developing vision loss in her right eye. She visited the eye center who sent her to ER right away. Patient initially presented to the [facility] ER, she was given Solu-Medrol 250 mg IV once and transferred to [facility] for further workup. Patient was evaluated [...] Your Medications These medications were sent to [facility]/pharmacy #[id number] [place] [address] aspirin 81 mg cyanocobalamin 1000 MCG tablet [...] Texture Adult diet John Patel DO [address] [facility] [address] Schedule an appointment as soon as possible for a visit in 1 week(s) Jt Jasso MD [address]umat[address] [facility] [phone] Schedule an appointment as soon as possible for a visit in 2 week(s) Joni Pizano MD [address] [facility] [address] [place] [phone] Schedule an appointment as soon as possible for a visit in 2 week(s) Sandy Pizano MD [address] [facility], [address], [address] [facility] [phone] Schedule an appointment as soon as possible for a visit in 1 month(s) Montana Bartlett MD [address] [facility] [id number] Schedule an appointment as soon as [...] questions. Electronically signed by: BART MILIAN MD [facility] Physician Hospitalists, Department of Internal Medicine 09/26/23 1:16 PM documented in this encounterUniversity Hospitals Elyria Medical Center02-02-2024 Hospital Discharge instructions* Discharge Instructions* Bart Milian MD - 09/26/2023 1:15 PM EST You are started on Aspirin to reduce director long term care risk of vascular complications with you suspected condition (giant cell arteritis) also it will help with preventing thrombosis (clotting) given your Thrombocytosis (elevated platelet count). Please discuss any concerns with your primary care provider, slitting machine operator helper or orthodontist Discuss with primary care or slitting machine operator helper DEXA scan as you are expected to be on steroid medications for prolonged period of time (up to 6 months). Log term steroids can cause Osteoporosis. * Attachments The following attachments cannot be sent through Care Everywhere. * Polymyalgia rheumatica and giant cell arteritis ([place]) documented in this encounterUniversity Hospitals Elyria Medical Center02-02-2024 History of Present illness Narrative* Kellie Shah MD - 09/26/2023 12:30 PM EST Images from the original note were not included. [facility] Rheumatology PROGRESS NOTE DATE OF ADMISSION 09/23/2023 12:25 AM REASON FOR CONSULTATION: Acute B/L sudden painless vision loss concerning for B/l GCA REFERRING PHYSICIAN: Goran Thomas MD PCP JOHN PATEL, ASSESSMENT AND PLAN: B/L vision loss likely 2/2 GCA -Pt's initial symptoms were blur vision in L eye but unfortunately when she presented to [facility] she had complete vision loss in [...] SSA, SSB, scleroderma antibody, Tiki 1, Mejia, AUTOMOTIVE GLASS INSTALLER, anti dsDNA, anti chromatin were negative. -No [...] no significant past medical history presented to [facility] 09/24 for concerns of vision loss in left eye. Patient was evaluated by bpm solution architect on 09/19/2023 due to blurry vision left [...] concerns of giant cell arteritis. Initially at [facility] she was given Solu-Medrol 250 mg IV 1 dose and then transferred to [facility]. On presenting to [facility], she had complete vision loss in both eyes. She was started on IV Solu-Medrol 1000 mg for 3 days. She underwent bilateral temporal artery biopsy on 09/25/2023. During this admission she had workup done which showed positive SILVIA screen, mildly elevated rheumatoid factor at 21 and elevated anticentromere antibody. Anca ribosomal antibody, SSA, SSB, scleroderma antibody, Tiki 1, Mejia, AUTOMOTIVE GLASS INSTALLER, anti dsDNA, anti chromatin were negative. PAST MEDICAL HISTORY: History reviewed. No pertinent past medical history. PAST SURGICAL HISTORY: Past Surgical History: Procedure Laterality Date APPENDECTOMY BIOPSY ARTERY TEMPORAL Bilateral 09/25/2023 Performed by Kristel Reid MD at [facility] TONSILLECTOMY TUBAL LIGATION ALLERGIES: Allergies Allergen [...] of the major arterial structures in the [place]. The paranasal sinuses are clear. [...] of the major arterial structures in the [place]. The paranasal sinuses are clear. [...] Charlton DO on 09/24/2023 3:51 AM I, Giblert Jewell MD have personally reviewed the image(s) [...] note were not included. [facility] Vascular [place] Vascular Service Progress Note Subjective: Status post [...] [facility] Hospitalists Progress Note 09/25/2023 Patient Name: [...] presents to the emergency department from her milk house worker's office. She was being evaluated with an milk house worker for possible giant cell arthritis. She said [...] [facility] Neurology General Neurology Consultation Note Consult Neurology Service: [phone] Primary Team: [facility] Chief Complaint and Reason for Consultation: [...] referral to eye center in [facility], on Friday and Friday, vision on the left eye worsened significantly and she lost her vision on the left eye. On Friday 09/22, patient came to [place] to see an eye doctor, whoasked her to go to the ED. patient initially went to [facility], given Solu-Medrol 250 mg IVonce, transferred to [facility] for further workup and ophthalmology evaluation. According to the patient, her right eye vision worsened significantly on Friday, and she lost her vision on both eyes. Patient had no past medical history, she has not taking any scheduled medications, patient lives with her daughter, she is driving and working. Walking with no assistive devices. Upon initial assessment in [facility], patient had complete vision loss on [...] CTH, head and neck CTA done at [facility], reportedly unremarkable Impression: Binocular vision loss [...] to Friday 12-1:00 p.m. Primary Neurology service: [phone] Consult neurology service: [phone] Resident Stroke Service: [phone] If the patient belongs to the Stroke [...] [facility] Hospital[facility] Progress Note 09/24/2023 Patient Name: [...] IgG 992 635 - 1,741 mg/dL Free [place] Lt Chains 2.91 (H) 0.33 - 1.94 [...] of the major arterial structures in the [place]. The paranasal sinuses are clear. [...] of the major arterial structures in the [place]. The paranasal sinuses are clear. [...] [facility] Neurology General Neurology Consultation Note Consult Neurology Service: [phone] Primary Team: [facility] Chief Complaint and Reason for Consultation: [...] referral to eye center in [facility], on Friday and Friday, vision on the left eye worsened significantly and she lost her vision on the left eye. On Friday 09/22, patient came to [place] to see an eye doctor, whoasked her to go to the ED. patient initially went to [facility], given Solu-Medrol 250 mg IVonce, transferred to [facility] for further workup and ophthalmology evaluation. According to the patient, her right eye vision worsened significantly on Friday, and she lost her vision on both eyes. Patient had no past medical history, she has not taking any scheduled medications, patient lives with her daughter, she is driving and working. Walking with no assistive devices. Upon initial assessment in [facility], patient had complete vision loss on [...] CTH, head and neck CTA done at [facility], reportedly unremarkable Impression: Binocular vision loss [...] to Friday 12-1:00 p.m. Primary Neurology service: [phone] Consult neurology service: [phone] Resident Stroke Service: [phone] If the patient belongs to the Stroke [...] [facility] Hospitalists Progress Note 09/23/2023 Patient Name: [...] can correct any mistakes. documented in this [facility] Progress note* Discharge Planning Note - Sophia [...] - Sophia Rajan RN 09/26/23 11:05 AM [facility]02-02-2024 Miscellaneous Notes* Discharge Planning Note - Sophia [...] at the bedside 7. Instruct patient/ patient sales representative printing paper about use of safety devices 8. Include patient/ patient sales representative printing paper in decisions related to safety Note: Evaluation of progress towards goal: No reports of injury during shift. Safety measures in place * Plan of Care - Jc Pelayo RN - 09/25/2023 11:52 PM EST Problem: Low Risk Fall Score Description: Clifford Fall Score of 0 - 24 or indicated by [facility] Assessment Goal: Patient should be free from fall Description: Interventions: 1. [place] to environment 2. Hourly rounds addressing the [...] non-skid footwear 11. Teach patient and patient sales representative printing paper to maintain environment for safety and engage [...] 1:09 PM * Plan of Care - aSbas Snow RN - 09/25/2023 12:35 PM EST Problem: Pain Goal: Patient goal is pain score less than 4, able to rest, and participant in treatment plan as appropriate Description: INTERVENTIONS: 1. Encourage patient or legal sales representative printing paper to report early pain and ask for [...] per policy 9. Teach patient or legal sales representative printing paper interventions for comforting Outcome: Progressing Note: Evaluation [...] at the bedside 7. Instruct patient/ patient sales representative printing paper about use of safety devices 8. Include patient/ patient sales representative printing paper in decisions related to safety Outcome: Progressing [...] hygiene technique 7. Identify and instruct patient/patient sales representative printing paper in use of appropriate isolation precautionsfor identified infection/symptoms 8. Provide and discuss with patient/patient sales representative printing paper on educational MDRO sheet 9. Encourage and monitor nutritional status daily and consult cashier self service gasoline if indicated 10. Implement neutropenic guidelines as needed 11. Review exposure to history of communicable disease and recent travel history on admission 12. Encourage annual influenza vaccine 13. Encourage pneumonia vaccine Outcome: Progressing Note: Evaluation of progress towards goal: Patient free from signs of infection. Afebrile. Continueto Monitor. Problem: Knowledge Deficit Goal: Patient/patient sales representative printing paper demonstrates understanding of disease process, treatment plan,medications, [...] be free from fall Description: Interventions: 1. [place] to environment 2. Hourly rounds addressing the [...] non-skid footwear 11. Teach patient and patient sales representative printing paper to maintain environment for safety and engage in all aspects of fall prevention program Outcome: Progressing Note: Evaluation of progress towards goal: Patient free from falls and injury. Continue to monitor. Problem: Moderate - High Risk Fall Score Description: Clifford Fall Score of =/> 25 or indicated by [facility] Assessment Goal: Patient should be free from fall Description: Interventions: 1. [place] to environment 2. Hourly rounds addressing the [...] non-skid footwear 11. Teach patient and patient sales representative printing paper to maintain environment for safety and engage [...] (cane, walker) within reach 19. Request patient sales representative printing paper bring adaptive equipment/mobility aids from home or obtain and provide as needed 20. Consult pharmacy regarding effects of med's affecting mobility, cognition, and alternatives 21. Obtain physician order for PT if risk factors associated with mobility are present 22. Obtain physician order for OT as appropriate 23. Utilize diversional activities 24. Educate patient and patient sales representative printing paper how to maintain a safe environment during visitationtimes (notify nurse prior to leaving bedside) 25. Consider appropriateness of medical or non-medical unit secretary 26. Set up voiding schedule as appropriate [...] days ago. She was evaluated by her milk house worker who felt that vision loss was secondary [...] be free from fall Description: Interventions: 1. [place] to environment 2. Hourly rounds addressing the [...] non-skid footwear 11. Teach patient and patient sales representative printing paper to maintain environment for safety and engage [...] Description: INTERVENTIONS: 1. Encourage patient or legal sales representative printing paper to report early pain and ask for [...] per policy 9. Teach patient or legal sales representative printing paper interventions for comforting Outcome: Progressing Note: Evaluation [...] at the bedside 7. Instruct patient/ patient sales representative printing paper about use of safety devices 8. Include patient/ patient sales representative printing paper in decisions related to safety Outcome: Progressing [...] hygiene technique 7. Identify and instruct patient/patient sales representative printing paper in use of appropriate isolation precautionsfor identified infection/symptoms 8. Provide and discuss with patient/patient sales representative printing paper on educational MDRO sheet 9. Encourage and monitor nutritional status daily and consult cashier self service gasoline if indicated 10. Implement neutropenic guidelines as needed 11. Review exposure to history of communicable disease and recent travel history on admission 12. Encourage annual influenza vaccine 13. Encourage pneumonia vaccine Outcome: Progressing Note: Evaluation of progress towards goal: Patient afebrile, Monitoring labs. Problem: Knowledge Deficit Goal: Patient/patient sales representative printing paper demonstrates understanding of disease process, treatment plan,medications, [...] Description: INTERVENTIONS: 1. Encourage patient or legal sales representative printing paper to report early pain and ask for [...] per policy 9. Teach patient or legal sales representative printing paper interventions for comforting Outcome: Progressing Note: Evaluation [...] at the bedside 7. Instruct patient/ patient sales representative printing paper about use of safety devices 8. Include patient/ patient sales representative printing paper in decisions related to safety Outcome: Progressing [...] hygiene technique 7. Identify and instruct patient/patient sales representative printing paper in use of appropriate isolation precautionsfor identified infection/symptoms 8. Provide and discuss with patient/patient sales representative printing paper on educational MDRO sheet 9. Encourage and monitor nutritional status daily and consult cashier self service gasoline if indicated 10. Implement neutropenic guidelines as [...] Description: INTERVENTIONS: 1. Encourage patient or legal sales representative printing paper to report early pain and ask for [...] per policy 9. Teach patient or legal sales representative printing paper interventions for comforting Outcome: Progressing Note: Evaluation [...] at the bedside 7. Instruct patient/ patient sales representative printing paper about use of safety devices 8. Include patient/ patient sales representative printing paper in decisions related to safety Outcome: Progressing [...] hygiene technique 7. Identify and instruct patient/patient sales representative printing paper in use of appropriate isolation precautionsfor identified infection/symptoms 8. Provide and discuss with patient/patient sales representative printing paper on educational MDRO sheet 9. Encourage and monitor nutritional status daily and consult cashier self service gasoline if indicated 10. Implement neutropenic guidelines as needed 11. Review exposure to history of communicable disease and recent travel history on admission 12. Encourage annual influenza vaccine 13. Encourage pneumonia vaccine Outcome: Progressing Note: Evaluation of progress towards goal: Patient receiving antibiotics as ordered. Continue to monitor. Problem: Knowledge Deficit Goal: Patient/patient sales representative printing paper demonstrates understanding of disease process, treatment plan,medications, [...] of 0 - 24 or indicated by [facility] Assessment Goal: Patient should be free from fall Description: Interventions: 1. [place] to environment 2. Hourly rounds addressing the [...] non-skid footwear 11. Teach patient and patient sales representative printing paper to maintain environment for safety and engage [...] at the bedside 7. Instruct patient/ patient sales representative printing paper about use of safety devices 8. Include patient/ patient sales representative printing paper in decisions related to safety Outcome: Progressing [...] hygiene technique 7. Identify and instruct patient/patient sales representative printing paper in use of appropriate isolation precautionsfor identified infection/symptoms 8. Provide and discuss with patient/patient sales representative printing paper on educational MDRO sheet 9. Encourage and monitor nutritional status daily and consult cashier self service gasoline if indicated 10. Implement neutropenic guidelines as needed 11. Review exposure to history of communicable disease and recent travel history on admission 12. Encourage annual influenza vaccine 13. Encourage pneumonia vaccine Outcome: Progressing Note: Evaluation of progress towards goal: Patient has no signs and symptoms of infection. Problem: Low Risk Fall Score Description: Clifford Fall Score of 0 - 24 or indicated by [facility] Assessment Goal: Patient should be free from fall Description: Interventions: 1. [place] to environment 2. Hourly rounds addressing the [...] non-skid footwear 11. Teach patient and patient sales representative printing paper to maintain environment for safety and engage in all aspects of fall prevention program Outcome: Progressing Note: Evaluation of progress towards goal: Patient remained free from falls. Will continue to utilized fall prevention measures. documented in this encounterUniversity [facility]02-02-[facility]24 Plan of care note * [...] at the bedside 7. Instruct patient/ patient sales representative printing paper about use of safety devices 8. Include patient/ patient sales representative printing paper in decisions related to safety Note: Evaluation of progress towards goal: No reports of injury during shift. Safety measures in place [facility] [employer] [id number] Plan of care note* Plan of Care - Jc Pelayo RN - 09/25/2023 11:52 PM EST Problem: Low Risk Fall Score Description: Clifford Fall Score of 0 - 24 or indicated by [facility] Assessment Goal: Patient should be free from fall Description: Interventions: 1. [place] to environment 2. Hourly rounds addressing the [...] non-skid footwear 11. Teach patient and patient sales representative printing paper to maintain environment for safety and engage in all aspects of fall prevention program Outcome: Progressing Note: Evaluation of progress towards goal: Patient remained free from falls. Will continue to utilized fall prevention measures. [facility] [employer] [id number] Progress note* Discharge Planning Note - Sophia [...] - Sophia Rajan RN 09/25/23 1:09 PM [facility] [employer] [id number] Plan of care note* Plan of Care - Sabas Snow RN - 09/25/2023 12:35 PM EST Problem: Pain Goal: Patient goal is pain score less than 4, able to rest, and participant in treatment plan as appropriate Description: INTERVENTIONS: 1. Encourage patient or legal sales representative printing paper to report early pain and ask for [...] per policy 9. Teach patient or legal sales representative printing paper interventions for comforting Outcome: Progressing Note: Evaluation [...] at the bedside 7. Instruct patient/ patient sales representative printing paper about use of safety devices 8. Include patient/ patient sales representative printing paper in decisions related to safety Outcome: Progressing [...] hygiene technique 7. Identify and instruct patient/patient sales representative printing paper in use of appropriate isolation precautionsfor identified infection/symptoms 8. Provide and discuss with patient/patient sales representative printing paper on educational MDRO sheet 9. Encourage and monitor nutritional status daily and consult cashier self service gasoline if indicated 10. Implement neutropenic guidelines as needed 11. Review exposure to history of communicable disease and recent travel history on admission 12. Encourage annual influenza vaccine 13. Encourage pneumonia vaccine Outcome: Progressing Note: Evaluation of progress towards goal: Patient free from signs of infection. Afebrile. Continueto Monitor. Problem: Knowledge Deficit Goal: Patient/patient sales representative printing paper demonstrates understanding of disease process, treatment plan,medications, [...] of 0 - 24 or indicated by [facility] Assessment Goal: Patient should be free from fall Description: Interventions: 1. [place] to environment 2. Hourly rounds addressing the [...] non-skid footwear 11. Teach patient and patient sales representative printing paper to maintain environment for safety and engage in all aspects of fall prevention program Outcome: Progressing Note: Evaluation of progress towards goal: Patient free from falls and injury. Continue to monitor. Problem: Moderate - High Risk Fall Score Description: Clifford Fall Score of =/> 25 or indicated by [facility] Assessment Goal: Patient should be free from fall Description: Interventions: 1. [place] to environment 2. Hourly rounds addressing the [...] non-skid footwear 11. Teach patient and patient sales representative printing paper to maintain environment for safety and engage [...] (cane, walker) within reach 19. Request patient sales representative printing paper bring adaptive equipment/mobility aids from home or obtain and provide as needed 20. Consult pharmacy regarding effects of med's affecting mobility, cognition, and alternatives 21. Obtain physician order for PT if risk factors associated with mobility are present 22. Obtain physician order for OT as appropriate 23. Utilize diversional activities 24. Educate patient and patient sales representative printing paper how to maintain a safe environment during visitationtimes (notify nurse prior to leaving bedside) 25. Consider appropriateness of medical or non-medical unit secretary 26. Set up voiding schedule as appropriate (every 2 hours) Outcome: Progressing Note: Evaluation of progress towards goal: Patient free from falls and injury. Continue to monitor. [facility] [id number] Consult note* Kellie Shah MD - 09/25/2023 8:47 AM ESTAssociated Order(s): IP CONSULT TO RHEUMATOLOGY Images from the original note were not included. 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 -No concern for RA or scleroderma given lack of clinical symptoms Discussed with attending Dr. Romero Shah PGY-5, Rheumatology CHIEF COMPLAINT: Visual loss HISTORY OF PRESENT ILLNESS: Jose David is a 78 y.o. White or female who presents with no significant past medical history presented to [facility] 09/24 for concerns of vision loss in left eye. Patient was evaluated by bpm solution architect on 09/19/2023 due to blurry vision left [...] concerns of giant cell arteritis. Initially at [facility] she was given Solu-Medrol 250 mg IV 1 dose and then transferred to [facility]. On presenting to [facility], she had complete vision loss in both eyes. She was started on IV Solu-Medrol 1000 mg for 3 days. She underwent bilateral temporal artery biopsy on 09/25/2023. During this admission she had workup done which showed positive SILVIA screen, mildly elevated rheumatoid factor at 21 and elevated anticentromere antibody. Anca ribosomal antibody, SSA, SSB, scleroderma antibody, Tiki 1, Mejia, AUTOMOTIVE GLASS INSTALLER, anti dsDNA, anti chromatin were negative. PAST [...] of the major arterial structures in the [place]. The paranasal sinuses are clear. [...] of the major arterial structures in the [place]. The paranasal sinuses are clear. [...] IgG 992 635 - 1,741 mg/dL Free [place] Lt Chains 2.91 (H) 0.33 - 1.94 [...] with the assessment and plan. [facility]02-01-[facility] Consult note* Kellie Shah MD - 09/25/2023 8:47 AM ESTAssociated Order(s): IP CONSULT TO RHEUMATOLOGY Images from the original note were not included. 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 -No concern for RA or scleroderma given lack of clinical symptoms Discussed with attending Dr. Romero Shah PGY-5, Rheumatology CHIEF COMPLAINT: Visual loss HISTORY OF PRESENT ILLNESS: Jose David is a 78 y.o. White or female who presents with no significant past medical history presented to [facility] 09/24 for concerns of vision loss in left eye. Patient was evaluated by bpm solution architect on 09/19/2023 due to blurry vision left [...] concerns of giant cell arteritis. Initially at [facility] she was given Solu-Medrol 250 mg IV 1 dose and then transferred to [facility]. On presenting to [facility], she had complete vision loss in both eyes. She was started on IV Solu-Medrol 1000 mg for 3 days. She underwent bilateral temporal artery biopsy on 09/25/2023. During this admission she had workup done which showed positive SILVIA screen, mildly elevated rheumatoid factor at 21 and elevated anticentromere antibody. Anca ribosomal antibody, SSA, SSB, scleroderma antibody, Tiki 1, Mejia, AUTOMOTIVE GLASS INSTALLER, anti dsDNA, anti chromatin were negative. PAST [...] of the major arterial structures in the [place]. The paranasal sinuses are clear. [...] of the major arterial structures in the [place]. The paranasal sinuses are clear. [...] IgG 992 635 - 1,741 mg/dL Free [place] Lt Chains 2.91 (H) 0.33 - 1.94 [...] the assessment and plan. * Faisal Rascon APRN-AUXILIARY EQUIPMENT TENDER - 09/24/2023 10:37 AM EST Images from the original note were not included. Vascular History and Physical Examination/Consultation Note Reason for Consultation Bilateral temporal artery biopsy, concern for giant cell arteritis History and Present Illness Jose David is a 78 y.o. White or female who presents to the emergency department from her milk house worker's office. She was being evaluated with an milk house worker for possible giant cell arthritis. She said she experienced vision loss in the left eye on Viarl and experienced vision loss in the right [...] concerns regarding management. ALANNA Guzman [facility] [place] Office/After hours: [phone] ALANNA Guzman 09/24/23 1521 * Bayron Denise - 09/23/2023 4:37 PM ESTAssociated Order(s): IP CONSULT TO SPIRITUAL CARE Summary: Spiritual Care Consult for Advance Directive Assistance Spiritual Care Consult for Advance Directive Assistance Advance Directive: Consumer Safety Inspector provided patient with education on the need for advance directives and a copy of the [place] Advance Directive packet. Consumer Safety Inspector assisted patient in completing the advance directives. Patient completed and signed a healthcare power of computer instructor. Patient was given the original and a copy. One copy placed in patient's chart. A medical administrative technician is available 17/03 to offer spiritual and emotional support and may be reached through the [facility] injection press operator at [phone]. * [place] Bartlett MD - 09/23/2023 12:15 PM ESTAssociated Order(s): IP CONSULT TO OPHTHALMOLOGY Date: Reason for consult: I have been asked to evaluate the eyes of this 78-year-old lady who noticed sudden onset of foggy in the left eye 4 days ago this rapidly progressed to complete loss of vision in the left eye.. She saw an bpm solution architect who indicated to her that she had [...] Normal Left Cr N 3-7 Normal Visual Viey: OD Confrontation: 360 absolute visual field deficit. [...] the patient was given a referral to milk house worker. Over the weekend patients vision in left eye continued to worsen and eventually lost all vision in left eye. Patient was seen by milk house worker 09/22/2023 and time she would decreased vision also in her right eye. It was recommended that she go straight to the emergency department, for concern for giant cell arteritis. Initially she went to [facility] where they gave her Solu-Medrol 250 mg IV 1 dose and then transferred her to [facility]. 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 Caitie Wilder PA-C [facility] [address] [place] [address] September 23, 2023, 10:20 AM Please note that portions of this note were generated using voice recognition BlueYield*OrdrIt dictation software. Although every effort was made to ensure the accuracy of this automated form building supervisor, some errors in form building supervisor may have occurred. I have personally performed [...] need to start aspirin Joni PIZANO M.D. [facility] Day time contact: After hours answering service: [phone] [facility] [address] [place] [address] * Carlitos Caraballo MD - 09/23/2023 12:53 AM ESTAssociated Order(s): IP CONSULT TO NEUROLOGY Images from the original note were not included. [facility] Neurology General Neurology Consultation Note Consult Neurology Service: [phone] Primary Team: [facility] Chief Complaint and Reason for Consultation: [...] referral to eye center in [facility], on Friday and Friday, vision on the left eye worsened significantly and she lost her vision on the left eye. On Friday 09/22, patient came to [place] to see an eye doctor, whoasked her to go to the ED. patient initially went to [facility], given Solu-Medrol 250 mg IVonce, transferred to [facility] for further workup and ophthalmology evaluation. According to the patient, her right eye vision worsened significantly on Friday, and she lost her vision on both eyes. Patient had no past medical history, she has not taking any scheduled medications, patient lives with her daughter, she is driving and working. Walking with no assistive devices. Upon initial assessment in [facility], patient had complete vision loss on [...] Reportedly ESR and CRP were elevated at [facility] Imaging: CTH, head and neck CTA done at [facility], reportedly unremarkable Other Testing: None Assessment: [...] follow Carlitos Caraballo MD PGY-3, Neurology Resident [facility] Staffed with: (Dr. Mignon) This patient is being followed by the Neurology Resident service. Contact attending directly during these hours: Friday to 7:30-8:30 A.M. to Friday 12-1:00 p.m. Primary Neurology service: [phone] Consult neurology service: [phone] Resident Stroke Service: [phone] If the patient belongs to the Stroke [...] MD, PhD documented in this encounterUniversity [facility]als [facility]02-01-[facility]24 Procedure note* Op Note - [...] days ago. She was evaluated by her milk house worker who felt that vision loss was secondary [...] Tissue Artery SURGICAL PATHOLOGY Kristel Reid MD 09/25/202308 2 : RIGHT TEMPORAL ARTERY BIOPSY Tissue Artery SURGICAL PATHOLOGY Kristel Reid MD 09/25/2023 0808 Implants: None Complications: None Disposition: PACU - hemodynamically stable. Condition: stable Kristel Reid MD [facility]02-01-2024 Attending History and physical note* Kristel Reid MD - 09/25/2023 7:30 AM EST HISTORY AND PHYSICAL INTERVAL NOTE: Jose David 1945 [id number] H&P reviewed. The patient was examined and there are no changes to the H&P. Kristel Reid MD Source Note - Faisal Rascon APRN-AUXILIARY EQUIPMENT TENDER - 09/24/2023 10:37 AM EST Images from the original note were not included. Vascular History and Physical Examination/Consultation Note Reason for Consultation Bilateral temporal artery biopsy, concern for giant cell arteritis History and Present Illness Jose David is a 78 y.o. White or female who presents to the emergency department from her milk house worker's office. She was being evaluated with an milk house worker for possible giant cell arthritis. She said [...] is not nervous/anxious. Objective Vital signs: Vitals: 09/23/23199924 0000 09/24/23 0440 09/24/23 0752 BP: 135/81 [...] concerns regarding management. ALANNA Guzman [facility] [place] Office/After hours: [phone] ALANNA Guzman 09/24/23 1521 ALANNA Guzman 09/25/23 0730 [facility] History and physical note* Kristel Reid MD - 09/25/2023 7:30 AM EST HISTORY AND PHYSICAL INTERVAL NOTE: Jose David 1945 [id number] H&P reviewed. The patient was examined and [...] presents to the emergency department from her milk house worker's office. She was being evaluated with an milk house worker for possible giant cell arthritis. She said [...] concerns regarding management. ALANNA Guzman [facility] [place] Office/After hours: [phone] ALANNA Guzman 09/24/23 1521 ALANNA Guzman 09/25/23 [...] discussed at length with patient at bedside [facility] Jose David is a 78 y.o. female with past medical history significant for Patient presented to the emergency department based on ophthalmology recommendation, patient saw Ophthalmology in [place] today evaluated for possible giant cell arthritis, [...] pedis pulses present and equal bilaterally Skin: [place], warm, dry; no rashes or lesions Neurologic: [...] Electronically signed by: MD Nandini PAREDES M.D. [facility] This note was completed using a voice form building supervisor system. Every effort was made to ensure accuracy. However, inadvertent computerized form building supervisor errors may be present. documented in this encounterUniversity Hospitals Ely[facility] Center01-31-2024 Plan of care note * Plan of Care - Jc Pelayo RN - 09/24/2023 11:51 PM EST Problem: Low Risk Fall Score Description: Clifford Fall Score of 0 - 24 or indicated by [facility] Assessment Goal: Patient should be free from fall Description: Interventions: 1. [place] to environment 2. Hourly rounds addressing the [...] non-skid footwear 11. Teach patient and patient sales representative printing paper to maintain environment for safety and engage in all aspects of fall prevention program Outcome: Progressing Note: Evaluation of progress towards goal: Patient remained free from falls. Will continue to utilized fall prevention measures. [facility]01-31-[facility]24 Plan of care note* Plan of Care - Faiza Valverde RN - 09/24/2023 11:08 AM EST Problem: Pain Goal: Patient goal is pain score less than 4, able to rest, and participant in treatment plan as appropriate Description: INTERVENTIONS: 1. Encourage patient or legal sales representative printing paper to report early pain and ask for [...] per policy 9. Teach patient or legal sales representative printing paper interventions for comforting Outcome: Progressing Note: Evaluation [...] at the bedside 7. Instruct patient/ patient sales representative printing paper about use of safety devices 8. Include patient/ patient sales representative printing paper in decisions related to safety Outcome: Progressing [...] hygiene technique 7. Identify and instruct patient/patient sales representative printing paper in use of appropriate isolation precautionsfor identified infection/symptoms 8. Provide and discuss with patient/patient sales representative printing paper on educational MDRO sheet 9. Encourage and monitor nutritional status daily and consult cashier self service gasoline if indicated 10. Implement neutropenic guidelines as needed 11. Review exposure to history of communicable disease and recent travel history on admission 12. Encourage annual influenza vaccine 13. Encourage pneumonia vaccine Outcome: Progressing Note: Evaluation of progress towards goal: Patient afebrile, Monitoring labs. Problem: Knowledge Deficit Goal: Patient/patient sales representative printing paper demonstrates understanding of disease process, treatment plan,medications, and discharge instructions Description: INTERVENTIONS 1. Complete learning assessment and assess knowledge base 2. Provide teaching at level of understanding 3. Provide teaching via preferred learning method(s) Outcome: Progressing Note: Evaluation of progress towards goal: POC reviewed with patient, verbalizes understanding [facility]01-31-2024 Progress note* Discharge Planning Note - Sophia [...] - Sophia Rajan RN 09/24/23 10:57 AM [facility]01-31-2024 Consult note* Faisal Rascon APRN-RIVKA - 09/24/2023 10:37 AM EST Images from the original note were not included. Vascular History and Physical Examination/Consultation Note Reason for Consultation Bilateral temporal artery biopsy, concern for giant cell arteritis History and Present Illness Jose David is a 78 y.o. White or female who presents to the emergency department from her milk house worker's office. She was being evaluated with an milk house worker for possible giant cell arthritis. She said [...] concerns regarding management. ALANNA Guzman [facility] [place] Office/After hours: [phone] ALANNA Guzman 09/24/23 1521 [employer] Work Phone: [phone] Plan of care note* Plan of Care - Mago Moreau RN - 09/23/2023 9:58 PM EST Problem: Pain Goal: Patient goal is pain score less than 4, able to rest, and participant in treatment plan as appropriate Description: INTERVENTIONS: 1. Encourage patient or legal sales representative printing paper to report early pain and ask for [...] per policy 9. Teach patient or legal sales representative printing paper interventions for comforting Outcome: Progressing Note: Evaluation [...] at the bedside 7. Instruct patient/ patient sales representative printing paper about use of safety devices 8. Include patient/ patient sales representative printing paper in decisions related to safety Outcome: Progressing [...] hygiene technique 7. Identify and instruct patient/patient sales representative printing paper in use of appropriate isolation precautionsfor identified infection/symptoms 8. Provide and discuss with patient/patient sales representative printing paper on educational MDRO sheet 9. Encourage and monitor nutritional status daily and consult cashier self service gasoline if indicated 10. Implement neutropenic guidelines as needed 11. Review exposure to history of communicable disease and recent travel history on admission 12. Encourage annual influenza vaccine 13. Encourage pneumonia vaccine Outcome: Progressing Note: Evaluation of progress towards goal: monitor for signs and symptoms of infection [facility]01-30-2024 Plan of care note* Plan of Care - Sabas Snow RN - 09/23/2023 4:41 PM EST Problem: Pain Goal: Patient goal is pain score less than 4, able to rest, and participant in treatment plan as appropriate Description: INTERVENTIONS: 1. Encourage patient or legal sales representative printing paper to report early pain and ask for [...] per policy 9. Teach patient or legal sales representative printing paper interventions for comforting Outcome: Progressing Note: Evaluation [...] at the bedside 7. Instruct patient/ patient sales representative printing paper about use of safety devices 8. Include patient/ patient sales representative printing paper in decisions related to safety Outcome: Progressing [...] hygiene technique 7. Identify and instruct patient/patient sales representative printing paper in use of appropriate isolation precautionsfor identified infection/symptoms 8. Provide and discuss with patient/patient sales representative printing paper on educational MDRO sheet 9. Encourage and monitor nutritional status daily and consult cashier self service gasoline if indicated 10. Implement neutropenic guidelines as needed 11. Review exposure to history of communicable disease and recent travel history on admission 12. Encourage annual influenza vaccine 13. Encourage pneumonia vaccine Outcome: Progressing Note: Evaluation of progress towards goal: Patient receiving antibiotics as ordered. Continue to monitor. Problem: Knowledge Deficit Goal: Patient/patient sales representative printing paper demonstrates understanding of disease process, treatment plan,medications, [...] of 0 - 24 or indicated by [facility] Assessment Goal: Patient should be free from fall Description: Interventions: 1. [place] to environment 2. Hourly rounds addressing the [...] non-skid footwear 11. Teach patient and patient sales representative printing paper to maintain environment for safety and engage in all aspects of fall prevention program Outcome: Progressing Note: Evaluation of progress towards goal: Patient free from falls and injury. Continue to monitor. [employer] [id number] Consult note* Bayron Denise - 09/23/2023 4:37 PM ESTAssociated Order(s): IP CONSULT TO SPIRITUAL CARE Summary: Spiritual Care Consult for Advance Directive Assistance Spiritual Care Consult for Advance Directive Assistance Advance Directive: Consumer Safety Inspector provided patient with education on the need for advance directives and a copy of the [place] Advance Directive packet. Consumer Safety Inspector assisted patient in completing the advance directives. Patient completed and signed a healthcare power of computer instructor. Patient was given the original and a copy. One copy placed in patient's chart. A medical administrative technician is available 17/03 to offer spiritual and emotional support and may be reached through the [facility] injection press operator at [phone]. [facility]01-[facility] Progress note* Discharge Planning Note - LIANE [...] care - LIANE KEN 09/23/23 2:07 PM [facility] [employer] [id number] Progress note* Situational Awareness - ALANNA Rosario - 09/23/2023 12:58 PM EST Consulted for MAUREEN to rule out embolic process in setting of sudden vision loss. Discussed with neurology, recommend surface echo with bubble study prior to consideration of MAUREEN. If TTE unremarkable and continued concerns, please let us know. ALANNA Rosario 09/23/23 1300 [employer] [facility] Work Phone: [phone] Consult note* [place] Bartlett MD - 09/23/2023 12:15 PM ESTAssociated Order(s): IP CONSULT TO OPHTHALMOLOGY Date: Reason for consult: I have been asked to evaluate the eyes of this 78-year-old lady who noticed sudden onset of foggy in the left eye 4 days ago this rapidly progressed to complete loss of vision in the left eye.. She saw an bpm solution architect who indicated to her that she had [...] is indicated. Thanks [place] Bartlett MD, FACS. [facility] Work Phone: 1(168) 782-755601-30-2024 Consult note* Joni Pizano MD - 09/23/2023 [...] the patient was given a referral to milk house worker. Over the weekend patients vision in left eye continued to worsen and eventually lost all vision in left eye. Patient was seen by milk house worker 09/22/2023 and time she would decreased vision also in her right eye. It was recommended that she go straight to the emergency department, for concern for giant cell arteritis. Initially she went to [facility] where they gave her Solu-Medrol 250 mg IV 1 dose and then transferred her to [facility]. 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 Caitie Wilder PA-C [facility] [address] [place] [address] September 23, 2023, 10:20 AM Please note that portions of this note were generated using voice recognition M*OrdrIt dictation software. Although every effort was made to ensure the accuracy of this automated form building supervisor, some errors in form building supervisor may have occurred. I have personally performed [...] need to start aspirin Joni PIZANO M.D. [facility] Day time contact: After hours answering service: [phone] [place] [address] [facility] [employer] [facility] Work Phone: [phone] Plan of care note* Plan of Care [...] at the bedside 7. Instruct patient/ patient sales representative printing paper about use of safety devices 8. Include patient/ patient sales representative printing paper in decisions related to safety Outcome: Progressing [...] hygiene technique 7. Identify and instruct patient/patient sales representative printing paper in use of appropriate isolation precautionsfor identified infection/symptoms 8. Provide and discuss with patient/patient sales representative printing paper on educational MDRO sheet 9. Encourage and monitor nutritional status daily and consult cashier self service gasoline if indicated 10. Implement neutropenic guidelines as needed 11. Review exposure to history of communicable disease and recent travel history on admission 12. Encourage annual influenza vaccine 13. Encourage pneumonia vaccine Outcome: Progressing Note: Evaluation of progress towards goal: Patient has no signs and symptoms of infection. Problem: Low Risk Fall Score Description: Clifford Fall Score of 0 - 24 or indicated by [facility] Assessment Goal: Patient should be free from fall Description: Interventions: 1. [place] to environment 2. Hourly rounds addressing the [...] non-skid footwear 11. Teach patient and patient sales representative printing paper to maintain environment for safety and engage in all aspects of fall prevention program Outcome: Progressing Note: Evaluation of progress towards goal: Patient remained free from falls. Will continue to utilized fall prevention measures. [facility] [employer] [id number] Consult note* Carlitos Caraballo MD - 09/23/2023 12:53 AM ESTAssociated Order(s): IP CONSULT TO NEUROLOGY Images from the original note were not included. [facility] Neurology General Neurology Consultation Note Consult Neurology Service: [phone] Primary Team: SAMUEL Chief Complaint and Reason [...] referral to eye center in [facility], on Friday and Friday, vision on the left eye worsened significantly and she lost her vision on the left eye. On Friday 09/22, patient came to [place] to see an eye doctor, whoasked her to go to the ED. patient initially went to [facility], given Solu-Medrol 250 mg IVonce, transferred to [facility] for further workup and ophthalmology evaluation. According to the patient, her right eye vision worsened significantly on Friday, and she lost her vision on both eyes. Patient had no past medical history, she has not taking any scheduled medications, patient lives with her daughter, she is driving and working. Walking with no assistive devices. Upon initial assessment in [facility], patient had complete vision loss on [...] -- No focal motor weakness noted in upper or lower extremities. Bulk and muscle [...] Reportedly ESR and CRP were elevated at [facility] Imaging: CTH, head and neck CTA done at [facility], reportedly unremarkable Other Testing: None Assessment: [...] follow Carlitos Caraballo MD PGY-3, Neurology Resident [facility] Staffed with: (Dr. Byrne) This patient is being followed by the Neurology Resident service. Contact attending directly during these hours: Friday to 7:30-8:30 A.M. to Friday 12-1:00 p.m. Primary Neurology service: [phone] Consult neurology service: [phone] Resident Stroke Service: [phone] If the patient belongs to the Stroke [...] follow and update Sandy Pizano MD, PhD [facility] [employer] [facility] Work Phone: 1(136) 208-325901-30-2024 History and physical note* Nandini Walters MD - 09/23/2023 12:34 AM EST Images from the original note were not included. [facility] Hospitalists History and Physical 09/23/2023 Patient [...] on ophthalmology recommendation, patient saw Ophthalmology in [place] today evaluated for possible giant cell arthritis, [...] pedis pulses present and equal bilaterally Skin: [place], warm, dry; no rashes or lesions Neurologic: [...] Electronically signed by: MD Nandini PAREDES M.D. [facility] This note was completed using a voice form building supervisor system. Every effort was made to ensure accuracy. However, inadvertent computerized form building supervisor errors may be present. [facility] Diagnosis Onset Date Resolution Status GERD (gastroesophageal reflux disease) acute Hospital discharge follow-up acute Temporal arteritis acute Vision loss, bilateral acute [facility] Work Phone: Evaluation note* Diagnosis Onset Date Resolution Status GERD (gastroesophageal reflux disease) acute History of cataract extraction with lens replacement acute Hospital discharge follow-up acute Temporal arteritis acute Vision loss, bilateral acute Acute effusion of left ear a cute Eustachian tube dysfunction acute [facility] Work Phone: Evaluation noteNo assessment information available [facility] Work Phone: Evaluation note* Diagnosis Giant cell arteritis (CMS-HCC)- Primary Giant cell arteritis [facility] encounter [facility] Diagnosis Giant cell arteritis (CMS-HCC)- Primary Giant cell arteritis [facility] Diagnosis Vision blurred- Primary Other specified visual disturbances B12 deficiency Thrombocytosis Essential thrombocythemia Vision blurred Other specified visual disturbances Temporal arteritis (CMS-HCC) Giant cell arteritis Stroke-like symptoms [facility] Diagnosis Giant cell arteritis (CMS-HCC)- Primary Giant cell arteritis documented [facility] Diagnosis Normocytic anemia- Primary Unspecified anemia Thrombocytosis Essential thrombocythemia Anemia, unspecified type documented [facility] this encounter [facility] Diagnosis Giant cell arteritis (CMS-HCC)- Primary Giant cell arteritis Stroke-like symptoms Vision blurred Other specified visual disturbances Anemia, unspecified type [facility] Diagnosis Normocytic anemia- Primary Unspecified anemia Thrombocytosis Essential thrombocythemia [facility] Diagnosis Normocytic anemia- Primary Unspecified anemia Thrombocytosis Essential thrombocythemia Anemia, unspecified type Iron deficiency Disorders of iron metabolism Giant cell arteritis (CMS-HCC) Giant cell arteritis Vision blurred Other specified visual disturbances [facility] Diagnosis Onset Date Resolution Status Admit Date Left otitis media acute 2024 2:27pm Muscle spasm acute September 2:27pm Neck pain acute October 13, 2024 2:27pm [facility] Work Phone: Evaluation note* Diagnosis Iron deficiency- Primary Disorders of iron metabolism Normocytic anemia Unspecified anemia Thrombocytosis Essential thrombocythemia Anemia, unspecified type [facility] Diagnosis Onset Date Resolution Status Admit Date Bilateral lower extremity edema acute May 17, 2025 1:04pm [facility] Work Phone: Hospital Discharge instructionsAmbulatory Orders* Referral to Orthopedic Surgery Time Frame: 05/23/25, Location: None Selected [facility] Work Phone: InstructionsNot on filedocumented in this encounter [facility] filed[facility] in [facility] filed[facility]ed in this [facility] filedocumented in this encounter [facility] (narrative)No reason for referral [facility]: Summary Purpose Family History No Family History Records FoundNo Family History Records FoundNo Family History Records FoundNo Family History Records FoundNo Family History Records FoundNo Family History Records FoundNo Family History Records Found Advance Directives Advance Directive Response Recorded Date/ Time Advance Directives No June 22, 2018 3:12pm Advance Directive Response Recorded Date/ Time Advance Directives No June 22, 2018 4:12pm Documents on File Type Date Recorded Patient Waterproofer Helper Expl anation Durable Power of Warp Tension Tester 10/03/2023 8:14 AM Durable Power of Warp Tension Tester 09/23/2023 4:17 PM [facility] Care Pow er of Warp Tension Tester Date Activated Date Inactivated Comments 09/23/2023 12:33 [...] Documents on File Type Date Recorded Patient Waterproofer Helper Expl anation Durable Power of Warp Tension Tester 09/23/2023 4:17 PM [facility] Pow er of Warp Tension Tester Latest Code Status on File Code Status Date Activated Date Inactivated Comments Full Code 09/23/2023 12:33 AM 09/26/2023 7:44 PM Healthcare Agents on File Name Relationship Healthcare Agent Relationshi p Communication Mike David Son Health Care Agent Malinda Brito Daughter First Alternate Health Care Agent Documents on File Type Date Recorded Patient Waterproofer Helper Expl anation Durable Power of Warp Tension Tester 09/23/2023 4:17 PM [facility] Pow er of Warp Tension Tester Latest Code Status on File Code Status [...] (gastroesophageal reflux disease) A pril 2024 1:50pm Chief Complaint Admit Date Swollen Ankles May 17, 2025 1:04pm Reason for Visit Admit Date Bilateral lower extremity edema Septembe r 2024 1:04pm Chief Complaint Admit Date Swollen Ankles May 17, 2025 1:04pm 1 week f/u May 23, 2025 9:33am Reason for Visit Admit Date Bilateral lower extremity edema Septembe r 2024 1:04pm At high risk for falls May 23 025 9:33am GERD (gastroesophageal reflux disease) S eptember 2024 9:33am History of cataract extraction with lens replacement May 23, 2025 9:33am Medicare annual wellness visit, subseque nt May 23, 2025 9:33am Right knee pain May 23, 2025 9:33am Temporal arteritis May 23, 2025 9:33am Vision loss, bilateral May 23 025 9:33am Reason for Referral Specialty Diagnoses / Procedures Referred By Jessica ga Referred To Contact Diagnoses B12 deficiency Thrombocytosis Vision blurred Temporal arteritis ([facility] Procedures Follow-up with primary care provider Bart Milian MD [address] [place] [id number] Referral ID Status Reason Start Date Expiration Date V isits Requested Visits Authorized [id number] Pending Review 09/26/2023 09/25/2024 1 1 Specialty Diagnoses / Procedures Referred By Jessica t Referred To Contact Procedures Adult diet Bart Milian MD [address] [place] [address] Referral ID Status Reason Start Date Expiration Date V isits Requested Visits Authorized [id number] Pending Review 09/26/2023 09/25/2024 1 1 Additional Source Comments INFORMATION SOURCE (unrecogn ized section and content) DATE CREATED AUTHOR 11/18/2021 [facility] DATE CREATED AUTHOR AUTHOR'S ORGANIZ ATION 01/31/2023 [facility] DATE CREATED AUTHOR AUTHOR'S ORGANIZ ATION 04/15/2023 [facility] DATE CREATED AUTHOR AUTHOR'S ORGANIZ ATION 10/04/2023 [facility] DATE CREATED AUTHOR AUTHOR'S ORGANIZ ATION 07/24/2024 [facility] DATE CREATED AUTHOR AUTHOR'S ORGANIZ ATION 01/24/2025 [facility] DATE CREATED AUTHOR AUTHOR'S ORGANIZ ATION 04/04/2025 [facility] Care Teams (unrecognized sec tion and content) Team Status: Active Member Role Status Dates Giovanna Graf APRN EDITORIAL PROJECT MANAGER-C Primary Care Provider Active Team Status: Inactive Member Role Status Dates Giovanna Graf APRN EDITORIAL PROJECT MANAGER-C Primary Care Provider, Attending Provider Active Start: October 16, 2023 End: October 16, 2023 Team Status: Active Member Role Status Dates Giovanna Graf APRN EDITORIAL PROJECT MANAGER-C Primary Care Provider, Attending Provider Active Start: October 30, 2023 Team Status: Active Member Role Status Dates Giovanna Graf APRN EDITORIAL PROJECT MANAGER-C Primary Care Provider Active Start: December 29, 2023 Jt Jasso MD Attending Provider Active S tart: December 29, 2023 Team Status: Inactive Member Role Status Dates Giovanna Graf APRN EDITORIAL PROJECT MANAGER-C Primary Care Provider, Attending Provider Active Start: December 29, 2023 End: December 29, 2023 Team Status: Active Member Role Status Dates Giovanna Graf APRN EDITORIAL PROJECT MANAGER-C Primary Care Provider, Attending Provider Active Start: March 05, 2024 Team Status: Inactive Member Role Status Dates Giovanna Graf APRN EDITORIAL PROJECT MANAGER-C Primary Care Provider, Attending Provider Active Start: April 13, 2024 End: April 13, 2024 Team Status: Active Member Role Status Dates Giovanna Graf APRN EDITORIAL PROJECT MANAGER-C Primary Care Provider Active Start: April 302023 Jt Jasso MD Attending Provider Active S tart: April 30, 2024 Team Status: Active Member Role Status Dates Giovanna Graf APRN EDITORIAL PROJECT MANAGER-C Primary Care Provider, Attending Provider Active Start: July 07, 2024 Team Status: Inactive Member Role Status Dates Giovanna Graf APRN EDITORIAL PROJECT MANAGER-C Primary Care Provider, Attending Provider Active Start: July 12, 2024 End: July 12, 2024 Rotary Engine Assembler Relationship Specialty Start Date End Date Giovanna Graf APRN-EDITORIAL PROJECT MANAGER [address] [place] [address] PCP - General Nurse Practitioner 10/10/23 Rotary Engine Assembler Relationship Specialty Start Date End Date Giovanna Graf APRN-EDITORIAL PROJECT MANAGER [address] [place] [address] PCP - General Nurse Practitioner 10/10/23 Rotary Engine Assembler Relationship Specialty Start Date End Date John Patel DO [address] [place] [address] PCP - General 01/23/17 Rotary Engine Assembler Relationship Specialty Start Date End Date John Patel DO [address] [place] [address] PCP - General 01/23/17 Rotary Engine Assembler Relationship Specialty Start Date End Date Giovanna Graf APRN-EDITORIAL PROJECT MANAGER [address] [place] [address] PCP - General Nurse Practitioner 10/10/23 Rotary Engine Assembler Relationship Specialty Start Date End Date Giovanna Graf APRN-EDITORIAL PROJECT MANAGER [address] [place] [address] PCP - General Nurse Practitioner 10/10/23 Team Status: Inactive Member Role Status Dates Giovanna Graf APRN EDITORIAL PROJECT MANAGER-C Primary Care Provider Active Start: July 162023 End: July 16, 2024 Angel Amanda DO Attending Provider Active Sta rt: July 16, 2024 End: July 16, 2024 Team Status: Active Member Role Status Dates Giovanna Graf APRN EDITORIAL PROJECT MANAGER-C Primary Care Provider Active Start: September 02, 2024 Jt Jasso MD Attending Provider Active S tart: September 02, 2024 Team Status: Inactive Member Role Status Dates Giovanna Graf APRN EDITORIAL PROJECT MANAGER-C Primary Care Provider, Attending Provider Active Start: October 13, 2024 End: October 13, 2024 Team Status: Active Member Role Status Dates Giovanna Graf APRN EDITORIAL PROJECT MANAGER-C Primary Care Provider Active Start: November 06, 2024 Jt Jasso MD Attending Provider Active S tart: November 06, 2024 Team Status: Active Member Role Status Dates Giovanna Graf APRN EDITORIAL PROJECT MANAGER-C Primary Care Provider Active Start: November 22, 2024 Priyanka Cortez CMA Attending Provider Active Start: November 22, 2024 Team Status: Active Member Role Status Dates Giovanna Graf APRN EDITORIAL PROJECT MANAGER-C Primary Care Provider Active Start: December 10, 2024 Alethea Mckeon DO Attending Provider Active Start: December 10, 2024 Team Status: Active Member Role Status Dates Giovanna Graf APRN EDITORIAL PROJECT MANAGER-C Primary Care Provider Active Start: December 10, 2024 Priyanka Cortez CMA Attending Provider Active Start: December 10, 2024 Team Status: Inactive Member Role Status Dates Giovanna Graf APRN EDITORIAL PROJECT MANAGER-C Primary Care Provider, Attending Provider Active Start: December 16, 2024 End: December 16, 2024 Rotary Engine Assembler Relationship Specialty Start Date End Date Giovanna Graf APRN-EDITORIAL PROJECT MANAGER [address] [place] [address] PCP - General Nurse Practitioner 10/10/23 Team Status: Inactive Member Role Status Dates Giovanna Graf APRN EDITORIAL PROJECT MANAGER-C Primary Care Provider Active Start: April 262024 End: May 17, 2025 Giovanna Graf APRN EDITORIAL PROJECT MANAGER-C Attending Provider Active Start: April End: May 17, 2025 Team Status: Inactive Member Role Status Dates Giovanna Graf APRN EDITORIAL PROJECT MANAGER-C Primary Care Provider Active Start: April 262024 End: May 23, 2025 Giovanna Graf APRN EDITORIAL PROJECT MANAGER-C Attending Provider Active Start: April End: May 23, 2025 Goals (unrecognized section and content) Goals may [...] Stroke-like symptoms CVA symptoms Tono Pan MD [address] [place] [address] Referral ID Status Reason Start Date Expiration Date Visits Re quested Visits Authorized [id number] 1 1 Reason Comments Follow-up Hospital discharge [...] Auto Held - Provider: Automatic Transfer Provider)1151 ([facility] Unhold - Provider: Automatic Transfer Provider) [...] RN)2100 (Not Given - Provider: Jc Pelayo, ASHIA - Reason: IV infusing) 0613 ([facility] Hold - Provider: Automatic Transfer Provider - Reason: Patient not available)0900 (Dose Auto Held - Provider: Automatic Transfer Provider)1151 ([facility] Unhold - Provider: Automatic Transfer Provider)2100 (Not [...] grams (4000 mg) in 24 hours] 0613 ([facility] Hold - Provider: Automatic Transfer Provider - Reason: Patient not available)1007 (Given - Provider: Jennifer Lawton RN)1151 ([facility] Unhold - Provider: Automatic Transfer Provider) dextrose (GLUTOSE) 40 % gel 15 g 15 g, oral, As needed, low blood sugar, blood glucose less than 70 mg/dL, Starting on Fri09/23/23 at 0032, If patient conscious and taking PO. If blood glucose is not greater than 70 mg/dL after initial treatment, repeat treatment. 0613 ([facility] Hold - Provider: Automatic Transfer Provider - Reason: Patient not available)1151 ([facility] Unhold - Provider: Automatic Transfer Provider) dextrose 5 % (D5W) infusion 100 mL/hr, intravenous, Continuous PRN, blood glucose less than 70 mg/dL, Starting on Fri09/23/23 at 0032, Use immediately following dextrose 50% or glucagon treatment for patients who are unconscious or NPO. Contact prescriber for additional orders. If blood glucose is not greater than 70 mg/dL after initial treatment, repeat treatment. 06 ([facility] Hold - Provider: Automatic Transfer Provider - Reason: Patient not available)1151 ([facility] Unhold - Provider: Automatic Transfer Provider) [...] treatment. VESICANT (RED) Warning: HYPERTONIC solution. 612 ([facility] Hold - Provider: Automatic Transfer Provider - Reason: Patient not available)115 ([facility] Unhold - Provider: Automatic Transfer Provider) [...] mg/dL after initial treatment, repeat treatment. 612 ([facility] Hold - Provider: Automatic Transfer Provider - Reason: Patient not available)115 ([facility] Unhold - Provider: Automatic Transfer Provider) ondansetron (PF) (ZOFRAN) injection 4 mg 4 mg, intravenous, Every 8 hours PRN, nausea, vomiting, Starting on Fri09/23/23 at 0032, Administer over 2-5 minutes. 612 ([facility] Hold - Provider: Automatic Transfer Provider - Reason: Patient not available)115 ([facility] Unhold - Provider: Automatic Transfer Provider) sennosides-docusate sodium (SENOKOT-S) 8.6-50 mg 1 tablet 1 tablet, oral, Every 12 hours PRN, constipation, Starting on Fri09/23/23 at 0032 0613 ([facility] Hold - Provider: Automatic Transfer Provider - Reason: Patient not available)1151 ([facility] Unhold - Provider: Automatic Transfer Provider) [...] use, Starting on Fri09/23/23 at 0032 0613 ([facility] Hold - Provider: Automatic Transfer Provider - Reason: Patient not available)1151 ([facility] Unhold - Provider: Automatic Transfer Provider) sodium chloride 0.9 % flush bag 25 mL, intravenous, at 100 mL/hr, Administer over 15 Minutes, As needed, line care, line care after IVPB administration, Starting on Fri09/23/23 at 0032 0613 ([facility] Hold - Provider: Automatic Transfer Provider - Reason: Patient not available)1151 ([facility] Unhold - Provider: Automatic Transfer Provider) sodium chloride 0.9 % infusion 20 mL/hr, intravenous, Continuous PRN, to maintain patency of lines, Starting on Fri09/23/23 at 0032 1008 (Restarted - Provider: Kimberly Chin RN) 0613 ([facility] Hold - Provider: Automatic Transfer Provider - Reason: Patient not available)1151 ([facility] Unhold - Provider: Automatic Transfer Provider) [...] BE BASED ON THE PRIMARY CLINICAL RECORDS. [facility] [employer] [facility]. provides no warranty or guarantee of the accuracy or completeness of information in this document.
[2025-06-02 09:59] LABS: Hematocrit 36.6 % (36.0-48.0); Hemoglobin 12.1 g/dL (12.0-16.0); Immature Granulocytes Abs Auto 0.02 10^3/uL (0.00-0.03); Immature Granulocytes Pct Auto 0.3 % (0.0-0.5); Lymphocytes Absolute Auto 3.2 10^3/uL (1.2-3.8); Mean Corpuscular HGB Conc 33.1 g/dL (29.9-35.2); Mean Corpuscular Hemoglobin 31.8 pg (26.7-34.0); Mean Corpuscular Volume 96.3 fL (81.0-99.0); Platelet Count 282 10^3/uL (150-450); Red Blood Count 3.80 10^6/uL (4.20-5.40); White Blood Count 7.0 10^3/uL (4.0-11.0)
[2025-06-02 11:07] LABS: Iron 75.0 ug/dL (50.0-170.0); Percent Iron Saturation 29.9 %; Total Iron Binding Capacity 251.0 ug/dL (250.0-450.0)
[2025-06-02 12:06] LABS: Ferritin 303.0 ng/mL (8.0-252.0)
[2025-06-03 04:07] LABS: Vitamin B12 604 pg/mL (232-1245)
== END 2025-06-02 09:24 | disposition home or self-care (01) ==
LOC: LAB 09:30
PROVIDERS: PCP Nurse Practitioner Family; Visit Provider Nurse Practitioner
DX: D64.9 Anemia, unspecified (principal); D75.839 Thrombocytosis, unspecified; E61.1 Iron deficiency
CPT/HCPCS: 36415; 82607; 82728; 83540; 83550; 85025

== ENCOUNTER 2025-06-23 16:22 | Emergency (ER) | payer MEDICARE, SELFPAY ==
--- OUTSIDE RECORDS SUMMARY | 2023-10-23 05:00 | XMS_ITS | Continuity of Care Document ---
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 Role Phone Pedro Sanchez MD, May Unavailable Unavailable Allergies, Adverse Reactions, Alerts Substance Reaction Status Criticality Penicillins disorientated/flushing(mild) Active No Information Medications Medication Instructions Dosage Effective Dates (start - stop) Status Comments Bactrim DS 800 mg-160 mg tablet take 1 tablet by oral route every 12 hours 1.00 tablet - Active prednisone 20 mg tablet take 1 tablet by oral route 2 times every day 20 MG - Active Vazalore 81 mg capsule take 1 capsule by oral route every day 81 MG - Active Vitamin D3 25 mcg (1,000 unit) tablet - Active Tylenol Extra Strength 500 mg tablet take 2 tablet by oral route every 4 - 6 hours as needed not to exceed 8 tablets per 24hrs 1000 MG - Active Procedures Procedure Date Fundus Photos No Charge Bilateral OFFICE/OUTPATIENT VISIT, EST, Low OFFICE/OUTPATIENT VISIT, [facility] Advance Directives Directive Yes / No Effective Date File Name No Information Encounters Encounter Description Practice Location Reason(s) For Visit Diagnoses Date Provider Providers Copied on Encounter OFFICE/OUTPAT IENT VISIT, EST, Low [facility] , [address] [facility], [place], [address], [place] tel:[phone] [facility] [place] optic neuritis (chief complaint) Giant cell arteritis Pedro Sanchez December. [address], [address], [place], [place], [id number] , [place]. tel:[phone] Referring Provider: December Pedro Sanchez, [address], [place], [address] . tel:[phone] OFFICE/OUTPAT IENT VISIT, [place] [facility] , [address] [place], [address], [place] tel:[phone] HEATHER Muniz Sudden loss of vision (chief complaint) Ischemic optic neuritis, leftGiant cell arteritisOptic neuritis, right Pedro Sanchez December. [address], [address], [place], [place], [id number] , [place]. tel:[phone] Referring Provider: December Pedro Sanchez, [address], [place], [address] . tel:[phone] [facility] , [address] [place], [address], [place] tel:[phone] GREGORYMarisol Muniz No Information Damian Sanchez. [address], [address], [place], [place], [id number] , [place]. tel:[phone] Family History Family Member Type Diagnosis Age At Onset Problem Family history of Cancer, ov kd Problem Family history of Cataracts Problem Family history of Diabetes m ellitus Problem Family history of Hypertensi on Payers Payer name Insurance type Covered constitution party ID Authorjhona gwen(s) [employer] Medicare - [id number] Social History Type Description Quantity Date Captured Comments Alcohol Use Details Unknown Caffeine Use Details Unknown Tobacco Use Status Ex-cigarette smoker 024 Smoking Status Former smoker Sex Female Vital Signs Date / Time: Height Weight BMI Pulse Rate Blood Pressure Temperature Respiratory Rate Body Surface Area Head Circumference Head Circ. Percentile Wt./Berto. Percentile BMI percentile Pulse Ox Inhaled Ox 9:37 AM 136/59 mm[Hg] Chief Complaint And Reason For Visit From encounter dated '10/23/2023 09:00'. optic neuritis (chief complaint). Description: The 78 year old female presents for 4 week evaluation of optic neuritis in the right eye. Patients states that the hospital did a doppler on her temples. Patient states that she is going to have a infusion of Actemara, when the insurance authorizes it.Patient states since her hospital stay she can see tiny spots of light. Patient states she thinks she is having these eye issues due to having a dirty lenses after her cataract surgery. Patient is onseveral new medications due to the GCA. Reason For Referral Reason For Referral No Information Plan Of Treatment Date Type Action Status Goal Tobacco cessation counseling completed History Of Present Illness Encounter Date Complaint History Of Prese nt Illness optic neuritis The 78 year old female presents for 4 week evaluation of optic neuritis in the right eye. Patients states that the hospital did a doppler on her temples. Patient states that she is going to have a infusion of Actemara, when the insurance authorizes it. Patient states since her hospital stay she can see tiny spots of light. Patient states she thinks she is having these eye issues due to having a dirty lenses after her cataract surgery. Patient is on several new medications due to the GCA. Sudden loss of vision The 78 yea r old female presents for evaluation of Sudden loss of vision in the left eye this morning at 5:30 am, she were supposed to be seen for OD GCA, she denies pain Functional Status Date Functional Assessmen t No Information Instructions Date Instruction Additional Infor mariana Impression/Plan Related to Giant cell arteritis Impression/Plan Related to Optic neuritis, right Impression/Plan Related to Ische taty optic neuritis, left Impression/Plan Related to Giant cell arteritis Assessments Type Assessment Date assessment Giant cell arteritis impression Giant cell arteritis: M31.6 Patient Care Teams Name Effective Dates (start - stop) Status Members No Information
--- OUTSIDE RECORDS SUMMARY | 2024-03-08 09:00 | XMS_ITS ---
Author Organization [facility] in [place] Address [address] [place] [address] Care Team Providers Care Sink Cutter Name Role Phone Giovanna Graf CNP Primary Care Provider U Roxi Pantoja Unavailable [phone] REASON FOR VISIT Nail care Encounters Encounter Location Date Provider Diagnosis [facility] (PODIATRY) [address] [place] [address] [place] [address] 03/08/2024 Roxi To Plan Of Treatment No Information Progress Notes * Kait DAVIDisDOB:1945 ( 80 yo F)Acc No.[id number]:03/08/2024 UNLOCKED PROGRESS NOTE Nurse Visit Patient: Minda CHINO :?ERIK MtzCDOB:1945???Age:78 Y ???Sex:FemaleDate:4Phone:[phone]:[address] [place] [address] [phone]:Giovanna Graf CNP Subjective: * Chief Complaints: * 1 . Nail care. * Medical History: Objective: * Vitals: Assessment: Plan: * Treatment: * * Electronic signature of Roxi To PA-C on 06/23/2025 at 04:34 PM EDTSign off status: PendingVisit Status:?N/S N/C (No Show/No Charge) * Provider: Neto To PA-C Date: 0 03/08/2024 Generated for Printing/Faxing/eTransmitting on:?06/23/2025 04:34 PM EDT
--- OUTSIDE RECORDS SUMMARY | 2024-09-28 05:00 | XMS_ITS ---
Author Organization [facility] Address [address] [place] [address] Care Team Providers Care Taxicab Coordinator Name Role Phone Dr. Asa Pandya Primary Care Provider REASON FOR VISIT DIRECTOR SPECIALTY EXAM Encounters Encounter Location Date Provider Diagnosis [facility] [address] [place] [address] 09/28/2024 Asa Pandya Plan Of Treatment Next Appt Details Provider Name:Katia Chacko, 08/29/2025 10:30:00 AM, [address] [place], [address], Provider Name:Katia Chacko, 09/01/2025 10:30:00 AM, [address] [place], [address], Progress Notes * GERTRUDIS DALALOB:1945 ( 80 yo F)Acc No.[id number]:09/28/2024 Patient:?JOSE DALAL :?Asa Pandya DDSDOB:1945???Age:79 Y???Sex: FemaleDate:09/28/2024Phone:[phone]:[address] [facility], [address], [place], [id number] Subjective: * Chief Complaints: * N P EXAM * Electronic signature of Dr. Asa Pandya , DMD, [id number] on 06/23/2025 at 04:34 PM EDTSign off status: Pending * Provider: Sepideh Pandya DDS Date: 0 09/28/2024 Generated for Printing/Faxing/eTransmitting on:?06/23/2025 04:34 PM EDT
--- OUTSIDE RECORDS SUMMARY | 2025-01-06 06:45 | XMS_ITS ---
Author Organization [facility] Address [address] [place] [address] Care Team Providers Care Dean Of Faculty Name Role Phone Dr. Asa Pandya Primary Care Provider [phone] Katia Chacko [phone] REASON FOR VISIT FILLING Encounters Encounter Location Date Provider Diagnosis [facility] [address] [place] [address] 01/06/2025 Katia Chacko Plan Of Treatment Next Appt Details Provider Name:Katia Chacko, 08/29/2025 10:30:00 AM, [address] [place], [address], Provider Name:Katia Chacko, 09/01/2025 10:30:00 AM, [address] [place], [address], Progress Notes * GERTRUDIS DALALOB:1945 ( 80 yo F)Acc No.[id number]:01/06/2025 Patient:?JOSE DALAL :?Katia ChackoDOB:1945???Age:79 Y???Sex: FemaleDate:01/06/2025Phone:[phone]:[address] [facility], [address], [place], [id number]:Dr. Asa Pandya Subjective: * Chief Complaints: * F ILLING * Electronic signature of Katia Chacko , DMD on 06/23/2025 at 04:34 PM EDTSign off status: Pending * Provider: Sepideh Chacko Date: 0 01/06/2025 Generated for Printing/Faxing/eTransmitting on:?06/23/2025 04:34 PM EDT
--- OUTSIDE RECORDS SUMMARY | 2025-01-13 06:30 | XMS_ITS ---
Author Organization [facility] Address [address] [place] [address] Care Team Providers Care Family Services Manager Name Role Phone Dr. Asa Pandya Primary Care Provider Katia Chacko [phone] REASON FOR VISIT FILLING Encounters Encounter Location Date Provider Diagnosis [facility] [address] [place] [address] 01/13/2025 Katia Chacko Plan Of Treatment Next Appt Details Provider Name:Katia Chacko, 08/29/2025 10:30:00 AM, [address] [place], [address], Provider Name:Katia Chacko, 09/01/2025 10:30:00 AM, [address] [place], [address], Progress Notes * GERTRUDIS DALALOB:1945 ( 80 yo F)Acc No.[id number]:01/13/2025 Patient:?JOSE DAALL :?Katia ChackoDOB:1945???Age:79 Y???Sex: FemaleDate:01/13/2025Phone:[phone]:[address] [facility], [address], [place], [id number]:Dr. Asa Pandya Subjective: * Chief Complaints: * F ILLING * Electronic signature of Katia Chacko , DMD on 06/23/2025 at 04:35 PM EDTSign off status: Pending * Provider: Sepideh Chacko Date: 0 01/13/2025 Generated for Printing/Faxing/eTransmitting on:?06/23/2025 04:35 PM EDT
--- OUTSIDE RECORDS SUMMARY | 2025-04-11 06:15 | XMS_ITS ---
Author Organization [facility] Address [address] [place] [address] Care Team Providers Care Biomedical Service Engineer Name Role Phone Dr. Asa Pandya Primary Care Provider [phone] Gladis Resendiz [phone] REASON FOR VISIT PROPHY DEBRIDEMENT/SUB G CALC Encounters Encounter Location Date Provider Diagnosis [facility] [address] [place] [address] 04/11/2025 Gladis Baltazar Plan Of Treatment Next Appt Details Provider Name:Katia Mackenzieamber, 08/29/2025 10:30:00 AM, [address] [place], [address], Provider Name:Katia Mackenzieamber, 09/01/2025 10:30:00 AM, [address] [place], [address], Progress Notes * GERTRUDIS DALALOB:1945 ( 80 yo F)Acc No.[id number]:04/11/2025 Patient:?JOSE DALAL :?Gladis BaltazarDOB:1945???Age:79 Y???Sex: FemaleDate:04/11/2025Phone:[phone]:[address] [facility], [address], [place], [id number]:Dr. Asa Pandya Subjective: * Chief Complaints: * P ROPHY DEBRIDEMENT/SUB G CALC * Electronic signature of Gladis Baltazar on 06/23/2025 at 04:34 PM EDTSign off status: Pending * Provider: Neto Baltazar Date: 0 04/11/2025 Generated for Printing/Faxing/eTransmitting on:?06/23/2025 04:34 PM EDT
--- OUTSIDE RECORDS SUMMARY | 2025-06-13 09:30 | XMS_ITS | Encounter Summary ---
Author Organization [place] Address [facility] [id number] [address] [place] [address] Care Team Providers Care Addiction Professional Name Role Phone Giovanna Graf Primary Care Provid er Reason for Visit * ReasonCommentsFollow-up Encounter Details DateTypeDepartmentCare Team (Latest Contact Info)Jwncbsnvmvu57/20/2025 9:30 AM EDTOffice Visit [facility] - Medical Oncology [address] [place] [phone] Kari Pablo, PATIENT SERVICE COORDINATOR-WIRING TECHNICIAN [address] [place] [address], [address] [place] [phone] Iron deficiency (Primary Dx); Normocytic anemia; Thrombocytosis; Anemia, unspecified type; Giant cell arteritis ([facility]) Social History Tobacco UseTypesPacks/DayYears UsedDateSmoking Tobacco: NeverSmokeless Tobacco: NeverAlcohol UseStandard Drinks/WeekCommentsNever0 (1 standard drink = 0.6 oz pure alcohol)AUDIT-CAnswerDate RecordedQ1: How often do you have a drink containing alcohol?Never09/23/2023Q2: How many drinks containing alcohol do you have on a typical day when you are drinking?Patient does not drink09/23/2023Q3: How often do you have six or more drinks on one occasion?Never09/23/2023Overall Financial Resource Strain (CARDIA)AnswerDate RecordedHow hard is it for you to pay for the very basics like food, housing, medical care, and heating?Not hard at all10/10/2024PHQ-2AnswerDate RecordedTotal Rgkhf103RAPARE - TransportationAnswerDate RecordedIn the past 12 months, has lack of transportation kept you from medical appointments or from getting medications?No 10/10/2024In the past 12 months, has lack of transportation kept you from meetings, work, or from getting things needed for daily living?No10/10/2024 Housing InstabilityAnswerDate RecordedAre you worried or concerned that in the next two months you may not have stable housing that you own, rent or stay in as a part of a household?No10/10/2024hildcareAnswerDate RecordedChildcareUnknown 02/03/2019EmploymentAnswerDate TdsiylcdIgmoizgtldDdrlqme40/12/2019Hunger ScreeningAnswerDate RecordedWithin the past 12 months we worried whether our food would run out before we got money to buy more.Never True10/10/2024Within the past 12 months the food we bought just didn't last and we didn't have money to get more.Never True10/10/2024Purpose - LifeAnswerDate RecordedPurpose and direction in uixfRgoftin97/11/2021CommentsUnknownSex and Gender InformationValueDate RecordedSex Assigned at BirthNot on fileLegal SexFemale 03/30/2015 11:28 AM EDTGender IdentityNot on fileSexual OrientationNot on file documented as of this encounter Last Filed Vital Signs Vital SignReadingTime TakenCommentsBlood Inkujsmi448/7006/13/2025 9:33 AM EDT Kvxgk7341 9:33 AM GQAUgqbfmwzkxw22.8 ??C (98.2 ??F)06/13/2025 9:33 AM EDTRespiratory Qmxx8120/ 9:33 AM EDTOxygen Ddtjqoenyu06%06/13/2025 9:33 AM EDTInhaled Oxygen Concentration--Frkfix49.4 kg (148 lb 9.6 oz)06/13/2025 9:33 AM HUCRlplwf919.5 cm (5' 2.01 )06/13/2025 9:33 AM EDTBody Mass Index27.17 06/13/2025 9:33 AM EDTdocumented in this encounter Patient Instructions * Patient Instructions* ALANNA Pond - 06/13/2025 9:30 AM EDT Labs done at [facility], not uploaded into system - will review once uploaded Continue multivitamin daily Follow up in 4 months with labs prior CBC-d CMP iron panel ferritin vitamin B12 documented in this encounter Progress Notes * ALANNA Pond - 06/13/2025 9:30 AM EDT Images from the original note were not included. [facility] [address] [place] [phone] 06/13/2025 Chief Complaint Patient presents with Follow-up Subjective/Interval events: Minda David is a 80 y.o. year old female who is an established patient seen today in the Hematology/Medical Oncology clinic. Presents accompanied by her daughter for follow up visit for AMY and vitamin B12 deficiency. She iscurrently taking MVI daily. She has discontinued ferrous sulfate and cyanocobalamin. She tells me that once she gets [...] no significant past medical history presented to chemical maker on 09/19/2023 due to blurry vision in left eye, she was told her optic disc was swollen and the patient was given a referral to aviation maintenance technician. Over the weekend patients vision in left eye continued to worsen and eventually lost all vision in left eye. Patient was seen by aviation maintenance technician 09/22/2023 and time she would decreased vision also in her right eye. It was recommended that she go straight to the emergency department, for concern for giant cell arteritis. Initially she went to [facility] where they gave her Solu-Medrol 250 mg IV 1 dose and then transferred her to [facility]. When she arrived at [facility] she had complete vision loss in both [...] day, repeat CBC and iron study at [facility] in 2 months. Follow-up in 4 months. If patient can not tolerate oral iron supplement, consider IV iron treatment. Review of Symptoms as below unless otherwise stated in HPI ECO- Asymptomatic Physical exam: Vitals: BP 151/70 Pulse 89 Temp 36.8 ??C (98.2 ??F) (Oral) Resp 16 Ht 157.5 cm (5' 2.01 ) Wt 67.4 kg (148 lb 9.6 oz) SpO2 98% BMI 27.17 kg/m?? Body mass index is 27.17 kg/m??. Wt Readings from Last 3 Encounters: 06/13/25 67.4 kg (148 lb 9.6 oz) 01/24/25 62.7 kg (138 lb 3.2 oz) 10/11/24 61 kg (134 lb 6.4 oz) Physical Exam Constitutional: Appearance: Normal appearance. [...] content normal. Judgment: Judgment normal. Recent labs: Review under media tab. Problem list: Problem List Items Addressed This Visit Cardiovascular and Mediastinum Giant cell arteritis (CMS-HCC) Hematopoietic and Hemostatic Normocytic anemia Thrombocytosis Other Visit Diagnoses Iron deficiency - Primary Anemia, unspecified type Impression: #. 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 Normocytic anemia, worsening #. Iron deficiency, stable #. Thrombocytosis - worsening and then improving Ferrous sulfate 325 mg BID started with resolution of anemia, iron deficiency, and thrombocytosis initially - No GI distress from ferrous sulfate Discontinued by another provider, currently taking MVI with iron Plan: Labs reviewed HGB 12.1 g/dL, RDW 13.3, PLT 282k Iron 75, Sat 29.9, TIBC 251, ferritin 303 Continue multivitamin daily, no changes Follow up in 4 months with labs prior CBC-d CMP iron panel ferritin vitamin B12 Thank you for allowing me to participate in this patient's care. KARI PABLO APRN-RIVKA 06/13/2025 12:39 PM Total time spent was 35 minutes: Preparing to see the patient (e.g., review of tests) Obtaining and/or reviewing separately obtained history Performing a medically appropriate examination and/or evaluation Counseling and educating the patient/family/caregiver Referring and communicating with other health pet care worker (not separately reported) Documenting clinical information in the electronic or other health record Independently interpreting results (not separately reported) and communicating results to the patient/family/caregiver Care coordination (not separately reported) Please note that portions of this note may have been generated using voice recognition [employer] dictation software. Although every effort was made to ensure the accuracy of any automated transcriptions, some errors may have occurred. ALANNA Pond 03/08/24 1507 ALANNA Pond 10/11/24 1457 ALANNA Pond 01/24/25 1021 ALANNA Pond 06/13/25 1242 documented in this encounter Plan of Treatment DateTypeDepartmentCare Team (Latest Contact Info)Htlcbokrcxi91/16/2026 10:30 AM ESTOffice Visit [facility] [address] [place] [phone] Kari Pablo APRN-CNP [address] [place] [address], [place] [phone] documented as of this encounter Goals GoalPatient Goal TypeAssociated ProblemsRecent ProgressPatient-Stated?Author <enter goal here> Brynn Cohn LSW Note: Evaluation of progress towards goal: Home with dtr, self care documented as of this encounter Visit Diagnoses Diagnosis Iron deficiency- Primary Disorders of iron metabolism Normocytic anemia Unspecified anemia Thrombocytosis Essential thrombocythemia Anemia, unspecified type Giant cell arteritis ([facility]) Giant cell arteritis documented in this encounter Additional Health Concerns AssessmentNoted TimePHQ-9 Depression Total Score: 9:39 AM EST documented as of this encounter Care Teams Team MemberRelationshipSpecialtyStart DateEnd Date Giovanna Graf APRN-NP [address] [place] [address] PCP - GeneralNurse Practitioner10/10/23documented as of this encounter
[2025-06-23 16:30] VITALS: BP 158/72; PULSE 92; TEMP 36.8; O2SAT 97; BMI 26.5
--- OUTSIDE RECORDS SUMMARY | 2025-06-23 16:34 | XMS_ITS | Clinical Summary ---
Author Organization [facility] Address [address] [place] [address] Care Team Providers Care Stone Splitter Name Role Phone Giovanna Graf NP Primary Care Provider [phone] Allergies Active AllergyReactionsCriticalityNoted DateCommentsCiprofloxacinNausea And Gsmqtftm70/04/8034FwvjecnhbgPtitxEshstg97/30/2024 Other reaction(s): Confusion Medications MedicationSigDispense QuantityRefillsLast FilledStart DateEnd DateStatus acetaminophen (Tylenol) 500 mg tablet Take 500 mg by mouth every 6 (six) hours if needed.Active tiZANidine (Zanaflex) 2 mg tablet Take 2 mg by mouth in the evening.02/06/2023ctive sulfamethoxazole-trimethoprim (Bactrim DS) 800-160 mg tablet Indications:GCA (giant cell arteritis) (CMS/HCC),Other specified abnormal immunological findings in serum,FPC systemic steroid user,Encounter for screening for other viral diseases,Other hyperlipidemiaTake 1 tablet by mouth 3 (three) times a week. Three times per week 12 tablet ctive ferrous sulfate 325 (65 Fe) MG EC tablet Take 325 mg by mouth.11/06/2023ctive ferrous sulfate 325 (65 Fe) MG tablet Take 65 mg by mouth in the morning and at bedtime.Active fluticasone (Flonase) 50 mcg/actuation nasal spray 01/23/2024ctive cyanocobalamin (Vitamin B-12) 250 mcg tablet Take 250 mcg by mouth in the morning.Active aspirin 81 mg EC tablet Indications:GCA (giant cell arteritis) (CMS/HCC),Other specified abnormal immunological findings in serum,FPC systemic steroid user,Encounter for screening for other viral diseases,Other hyperlipidemiaTAKE 1 TABLET (81 MG) BY MOUTH IN THE MORNING 90 tablet [id number]/5Active uxmkctrkzybu-rzwg-gjmnourh-folic acid (Multivitamin 50 Plus) tablet Indications:GCA (giant cell arteritis) (CMS/HCC),FPC systemic steroid user ,Other hyperlipidemia,Encounter for screening for other viral diseases,Need for hepatitis B screening testTake 1 tablet by mouth in the morning. 90 tablet 302506Active tocilizumab (Actemra ACTPen) 162 mg/0.9 mL pen injector Indications:GCA (giant cell arteritis) (CMS/HCC)Inject 162 mg under the skin every 14 (fourteen) days. 1.8 mL 1105Active omeprazole (PriLOSEC) [address] capsule Take 20 mg by mouth before breakfast. Do not crush or chew.Active predniSONE (Deltasone) 2.5 mg tablet Indications:GCA (giant cell arteritis) (CMS/HCC),FPC systemic steroid user ,Other hyperlipidemia,Other specified abnormal immunological findings in serum, Encounter for screening for other viral diseasesTake 4 tablets (10 mg) by mouth in the morning. 360 tablet //6Active Spectravite Adult 50 Plus 0.4 mg-300 mcg- 250 mcg tablet Use 1 tablet in the mouth or throat in the morning.5Active alendronate (Fosamax) 70 mg tablet Indications:Osteoporosis without current pathological fracture, unspecified osteoporosis typeTake 1 tablet (70 mg) by mouth every 7 (seven) days. Take in the morning with a full glass of water, on an empty stomach, and do not take anything else by mouth or lie down for the next 30 min. 12 tablet [id number] Active Problems ProblemNoted DateDiagnosed DateDecreased dorsalis pedis pulse02/01/2025 Mdznycdekpicxjkfm53/10/2025Long term systemic steroid user02/01/2025Urge incontinence of urine01/27/20246612Zlfluhxo79/04/2024History of renal calculi 01/27/2024History of cataract jbjydomjsc86/04/2024GERD (gastroesophageal reflux disease)01/27/2024Eustachian tube ojfgojhnwxj33/04/2024Normocytic anemia ThrombocytosisGiant cell arteritis Vision txvtvcm68Stroke-like symptoms Social History Tobacco UseTypesPacks/DayYears UsedDateSmoking Tobacco: FormerCigarettes Smokeless Tobacco: Former Tobacco Cessation:Counseling Given: Not Answered Alcohol UseStandard Drinks/WeekCommentsNot Currently0 (1 standard drink = 0.6 oz pure alcohol)UT Safety & EnvironmentAnswerDate RecordedFear of Current or Ex-PartnerNot on file10/17/2023Emotionally AbusedNot on file10/17/2023hysically AbusedNot on file10/17/2023Sexually AbusedNot on file10/17/2023hysically or Sexually AbusedNot on file10/17/2023CommentsUnknownSex and Gender InformationValueDate RecordedSex Assigned at BirthNot on fileLegal SexFemale 09/26/2023 11:59 PM ESTGender IdentityNot on fileSexual OrientationNot on file Last Filed Vital Signs Vital SignReadingTime TakenCommentsBlood Bytejxqr231/7807 1:23 PM EDT Jhsbn066303/15/2025 1:23 PM EDTTemperature--Respiratory Rate--Oxygen Vmsoaulyig31% 03/15/2025 1:23 PM EDTInhaled Oxygen Concentration--Swpwnk77.8 kg (145 lb) 03/15/2025 1:23 PM OOCFdrcdt025.5 cm (5' 2 )03/15/2025 1:23 PM EDTBody Mass Index26.5207 1:23 PM EDT Plan of Treatment Health MaintenanceDue DateLast DoneCommentsMedicare Annual Wellness (AWV) 6COVID-19 Vaccine (#1)1Depression Kftcvkuna50/17/1958 Pneumococcal Vaccine: 50+ Years (1 of 2 - PCV)1965Zoster Vaccines (1 of 2) 1965Adult Etvrlsa1305/11/1968Fall Risk Zylvtttxq64/17/2011Influenza Vaccine (#1)2025HIB VaccinesAged OutNo longer eligible based on patient's age to complete this topicHPV VaccinesAged OutNo longer eligible based on patient's age to complete this topicIPV VaccinesAged OutNo longer eligible based on patient's age to complete this topicMeningococcal B VaccineAged OutNo longer eligible based on patient's age to complete this topicMeningococcal VaccineAged OutNo longer eligible based on patient's age to complete this topicRotavirus Vaccines Aged OutNo longer eligible based on patient's age to complete this topic Insurance Care Teams Team MemberRelationshipSpecialtyStart DateEnd Date Giovanna Graf NP [address] [phone] PCP - GeneralFamily Medicine10/21/23
--- OUTSIDE RECORDS SUMMARY | 2025-06-23 16:35 | XMS_ITS | Encounter Summary ---
Author Organization [employer] Address [facility] [id number] [address] [place] [address] Care Team Providers Care Business Banking Representative Name Role Phone Giovanna Graf Primary Care Provid er Encounter Details DateTypeDepartmentCare Team (Latest Contact Info)Sgizcbnecbm84/20/2025Travel Social History Tobacco UseTypesPacks/DayYears UsedDateSmoking Tobacco: NeverSmokeless [...] care, and heating?Not hard at all10/10/2024PHQ-2AnswerDate RecordedTotal Jgksa122RAPARE - TransportationAnswerDate RecordedIn the past 12 months, [...] stay in as a part of a household?No5ChildcareAnswerDate RecordedChildcareUnknown 02/03/2019EmploymentAnswerDate RvatnuklIpguwrapzrPdwcoyt76/12/2019Hunger ScreeningAnswerDate RecordedWithin the past 12 months we worried whether our food would run out before we got money to buy more.Never True10/10/2024Within the past 12 months the food we bought just didn't last and we didn't have money to get more.Never True10/10/2024Purpose - LifeAnswerDate RecordedPurpose and direction in gnwiMznlrgg91/11/2021CommentsUnknownSex and Gender InformationValueDate RecordedSex Assigned at BirthNot on fileLegal SexFemale 03/30/2015 11:28 AM EDTGender IdentityNot on fileSexual OrientationNot on file documented as of this encounter Plan of Treatment DateTypeDepartmentCare Team (Latest Contact Info)Isktqdcbolo10/16/2026 10:30 AM [address]Office [address] [facility] [address] [place] [phone] Kari Pablo, REGIONAL DEDICATED TRUCK DRIVER-[address], [address] [address] documented as of this encounter Goals GoalPatient Goal TypeAssociated ProblemsRecent ProgressPatient-Stated?Author <enter goal here> Brynn Cohn LSW Note: Evaluation of progress towards goal: Home with dtr, self care documented as of this encounter Visit Diagnoses Not on filedocumented in this encounter Additional Health Concerns AssessmentNoted TimePHQ-9 Depression Total Score: 001/ 9:39 AM EST documented as of this encounter Care Teams Team MemberRelationshipSpecialtyStart DateEnd Date Giovanna Graf APRN-SAMRA [address] [place] [address] PCP - GeneralNurse Practitioner10/10/23documented as of this encounter
--- OUTSIDE RECORDS SUMMARY | 2025-06-23 16:35 | XMS_ITS | Patient Health Record ---
Author Organization [facility] [place] Address [address] [place] [address] Care Team Providers Care School Standards Coach Name Role Phone Giovanna Graf CNP Primary Care Provider U navailable Allergies No Known Allergies Reason For Referral No Information Medications Medication SIG (Take, Route, Frequency, Duration) Notes Start Date End Date Status predniSONE 20 MG 1 tablet Orally Once a day ActiveBactrim 400-80 MG1 tablet Orally Once a dayActiveVitamin B 12 500 MCG1 tablet Orally Once a dayActiveAspirin 81 81 MG1 tablet Orally Once a dayActive Iron 28 MG1 tablet Orally Three times a WeekActiveActemra ACTPen 162 MG/0.9MLas directed SubcutaneousActive Social History Tobacco Use: Social History Observation Description Date Details (start date - stop date) Former Smoker NA - NA Tobacco Use/Smoking Question Answer Notes Patient is a former smoker Plan Of Treatment No Information Insurance Providers Payer Name Payer Address Payer Phone Subscriber Number Group Number Insured Name Patient Relationship to Insured Coverage Start Date Coverage End Date [employer] MEDICARE [address] [address] [place], [place] [id number] Minda David Self - patient is the insured Medical (General) History Medical History History ICD Code Arthritis M19.90 Heart murmur R01.1 Stroke I63.9
--- OUTSIDE RECORDS SUMMARY | 2025-06-23 16:35 | XMS_ITS | Clinical Summary ---
Author Organization [employer] Address [facility] [id number] [address] [place] [address] Care Team Providers Care Welder Operator Name Role Phone Giovanna Graf Primary Care Provid er Allergies Active AllergyReactionsCriticalityNoted DateCommentsPenicillinConfusion,Fever Idqpvt8309/23/2023 Medications MedicationSigDispense QuantityRefillsLast FilledStart DateEnd DateStatus acetaminophen (TYLENOL EXTRA STRENGTH) 500 mg tablet Take 1 tablet (500 mg total) by mouth every 6 (six) hours as needed for pain. Active ACTEMRA 162 mg/0.9 mL injection Inject 0.9 mL (162 mg total) under the skin once a week.Active predniSONE (DELTASONE) 20 mg tablet Take 2.5 mg by mouth in the morning. Until 01/09/24 then going to 1/2 tablet a day.10/16/2023ctive aspirin 81 mg chewable tablet Chew 1 tablet (81 mg total) and swallow in the morning.Active sulfamethoxazole-trimethoprim (BACTRIM DS) 800-160 mg per tablet Take 1 tablet by mouth. Three times a weekActive fluticasone propionate (FLONASE) 50 mcg/actuation nasal spray Administer 2 sprays into each nostril in the morning.01/23/2024ctive ijisntwuqnqa-xzeuoiea-ccihuc (MULTIVITAMIN 50 PLUS) tablet Take 1 tablet by mouth in the morning.ctive omeprazole (PriLOSEC) 10 mg capsule Take 2 capsules (20 mg total) by mouth in the morning.Active alendronate (FOSAMAX) 70 mg tablet Take 1 tablet (70 mg total) by mouth Once a week.ctive ferrous sulfate 325 (65 FE) mg EC tablet Take 1 tablet (325 mg total) by mouth in the morning and 1 tablet (325 mg total) in the evening. Take with meals. 180 tablet Discontinued cyanocobalamin 250 MCG tablet Take 1 tablet (250 mcg total) by mouth in the morning.06/13/2025Discontinued Active Problems ProblemNoted DateDiagnosed DateNormocytic jeuzei7411/06/2023Thrombocytosis 11/06/2023Giant cell fkmidimby54/22/2024Vision lkpgwzw5009/23/2023Stroke-like ysmtzsmj26/30/2024 Encounters DateTypeDepartmentCare AfuyXggsbnzgzwz65/20/2025 9:30 AM EDTOffice Visit [facility] - Medical Oncology [address] [place] [phone] Kari Pablo APRN-CNP Iron deficiency (Primary Dx); Normocytic anemia; Thrombocytosis; Anemia, unspecified type; Giant cell arteritis ([facility])06/13/20250835Urqsav35/03/2025Orders Only [facility] - Medical Oncology [address] [place] [phone] Roxie Saldivar APRN-CNP 05/04/2025Travelfrom Last 3 Months Immunizations No known immunizations Social History Tobacco UseTypesPacks/DayYears UsedDateSmoking Tobacco: NeverSmokeless Tobacco: NeverAlcohol UseStandard Drinks/WeekCommentsNever0 (1 standard drink = 0.6 oz pure alcohol)AUDIT-CAnswerDate RecordedQ1: How often do you have a drink containing alcohol?Never01/30/2024Q2: How many drinks containing alcohol do you have on a typical day when you are drinking?Patient does not drink09/23/2023Q3: How often do you have six or more drinks on one occasion?Never09/23/2023Overall Financial Resource Strain (CARDIA)AnswerDate RecordedHow hard is it for you to pay for the very basics like food, housing, medical care, and heating?Not hard at all10/10/2024PHQ-2AnswerDate RecordedTotal Hddpz059RAPARE - TransportationAnswerDate RecordedIn the past 12 months, [...] a part of a household?No10/10/2024hildcareAnswerDate RecordedChildcareUnknown 02/03/2019EmploymentAnswerDate LufgwlmyBedzdztvlcWmzhxry13/12/2019Hunger ScreeningAnswerDate RecordedWithin the past 12 months we worried whether our food would run out before we got money to buy more.Never True10/10/2024Within the past 12 months the food we bought just didn't last and we didn't have money to get more.Never True10/10/2024Purpose - LifeAnswerDate RecordedPurpose and direction in kavtKfpjdoe71/11/2021CommentsUnknownSex and Gender InformationValueDate RecordedSex Assigned at BirthNot on fileLegal SexFemale 03/30/2015 11:28 AM EDTGender IdentityNot on fileSexual OrientationNot on file Last Filed Vital Signs Vital SignReadingTime TakenCommentsBlood Xuxbtexv036/7006/13/2025 9:33 AM EDT Vwdgk0591 9:33 AM LKRQxucaqfzvxw22.8 ??C (98.2 ??F)06/13/2025 9:33 AM EDTRespiratory Ifuz1116/ 9:33 AM EDTOxygen Ckkwussyht06%06/13/2025 9:33 AM EDTInhaled Oxygen Concentration--Uwvuej17.4 kg (148 lb 9.6 oz)06/13/2025 9:33 AM JOOJftxmi171.5 cm (5' 2.01 )06/13/2025 9:33 AM EDTBody Mass Index27.17 06/13/2025 9:33 AM EDT Plan of Treatment DateTypeDepartmentCare Team (Latest Contact Info)Ercqhhgxdyk62/16/2026 10:30 AM ESTOffice Visit [facility] - Medical Oncology [address] [place] [phone] Kari Pablo APRN-PATIENT INFORMATION COORDINATOR [address] [place] [address], [address] [place] [phone] Health MaintenanceDue DateLast DoneCommentsDTaP,Tdap and Td Vaccines (1 - Tdap) 1965Zoster (Shingles) Vaccine (1 of 2)1996Fall Risk Screening 2011Depression Gqeqowpjv39Influenza Nunhxen3704/25/2025 Tobacco Qfiqjevpo43 Goals GoalPatient Goal TypeAssociated ProblemsRecent ProgressPatient-Stated?Author <enter goal here> Brynn Cohn, LIANE Note: Evaluation of progress towards goal: Home with dtr, self care Medical Devices Not on file Insurance Advance Directives TypeDate RecordedPatient RepresentativeExplanationDurable Power of Collection Specialist 10/03/2023 8:14 AMDurable Power of Attorney09/23/2023 4:17 PMOhio Health Care Power of Collection Specialist * Full Code (Latest Code Status on File) Date ActivatedDate InactivatedComments09/23/2023 12:33 AM09/26/2023 7:44 PM NameRelationshipHealthcare Agent RelationshipCommunicationRaymond DickeySon Health Care Agent* Malinda BritoDaughterFirst Alternate Health Care Agent* Care Teams Team MemberRelationshipSpecialtyStart DateEnd Date Giovanna Graf APRN-NP [address] [place] [address] PCP - GeneralNurse Practitioner10/10/23
--- NOTE | 2025-06-23 16:36 | ED.HEATRA1 ---
HPI HPI - Head Injury General Chief complaint: Head Injury Stated complaint: WENT TO SIT DOWN AND FELL AND HIT HER HEAD Time Seen by Provider: 06/23/25 16:33 Source: patient Mode of arrival: walk-in Limitations: other Limitations comment: Blind History of Present Illness HPI Narrative: 80 year old female presents to the ED for a head injury. She was trying to sit in a chair when she missed the chair, hitting the back of her head on a fireplace. Denies LOC, weakness, dizziness, N/V. She is blind. Denies pain to her neck, back, chest, abdomen, extremities. She is accompanied by family. Denies use of anticoagulant medication. Related Data Home Medications ?Medication ?Instructions ?Recorded ?Confirmed aspirin 81 mg tablet,delayed 81 mg PO DAILY 11/21/24 06/23/25 release multivitamin (Daily Multi-Vitamin 1 tab PO DAILY 11/21/24 06/23/25 tablet) prednisone 2.5 mg tablet 2.5 mg PO DAILY 11/21/24 06/23/25 tocilizumab 162 mg/0.9 mL 162 mg subcut Q14D 11/21/24 06/23/25 subcutaneous pen injector (Actemra ACTPen) alendronate 70 mg tablet 70 mg PO DAILY 06/23/25 06/23/25 omeprazole 20 mg capsule,delayed 20 mg PO DAILY 06/23/25 06/23/25 release Allergies Allergy/AdvReac Type Severity Reaction Status Date / Time Penicillins Allergy Mild Flushing Verified 12/10/24 01:37 Opioid HPI Opioid Management Most Recent Pain and Opioid Data: Last Pain Scale 5 Today, 16:30 Review of Systems ROS Constitutional Denies: fever or chills Cardiovascular Denies: chest pain Respiratory Denies: shortness of breath Gastrointestinal Denies: abdominal pain, nausea or vomiting Musculoskeletal Denies: back pain or neck pain Neurological Reports: headache; Denies: numbness in extremities, weakness in extremities, dizziness or confusion PFSH [facility] Medical History Acid reflux ?K21.9 - Gastro-esophageal reflux disease without esophagitis (ICD-10) Kidney calculi ?N20.0 - Calculus of kidney (ICD-10) Neck pain ?M54.2 - Cervicalgia (ICD-10) Surgical History History of bilateral tubal ligation ?Z98.51 - Tubal ligation status (ICD-10) History of phacoemulsification of cataract of both eyes with intraocular lens implantation ?Z98.41 - Cataract extraction status, right eye (ICD-10) ?Z98.42 - Cataract extraction status, left eye (ICD-10) ?Z96.1 - Presence of intraocular lens (ICD-10) Hx of appendectomy ?Z90.49 - Acquired absence of other specified parts of digestive tract (ICD-10) Social History Smoking status: Former smoker Little interest or pleasure in doing things: not at all Feeling down, depressed, or hopeless: not at all Exam Constitutional Vital Signs, click to edit/add: Last Vital Signs Temp 98.3 F 06/23/25 16:30 Pulse 92 H 06/23/25 16:30 Resp 18 06/23/25 16:30 BP 158/72 H 06/23/25 16:30 Pulse Ox 97 06/23/25 16:30 O2 Del Method Room Air 06/23/25 16:30 HENMT Common normals: external ears normal and moist oral mucous membranes Head and scalp: hematoma (Right occipital); no Richmond's sign and no raccoon eyes Mouth: oral and palatal mucosa normal, lip normal and tongue normal Neck & C-Spine Common normals: supple Cervical spine: no cervical spine tenderness and no paracervical muscle tenderness Respiratory Common normals: normal respiratory effort Effort & inspection: able to speak in complete sentences and symmetric chest movement Back & Pelvis Thoracic spine/upper back: no thoracic spinal tenderness and no paraspinal muscle tenderness Lumbar spine/lower back: no lumbar spinal tenderness and no paraspinal muscle tenderness Neuro Common normals: oriented x3, CN's II-XII intact bilaterally, moves all extremities and no focal motor deficits Sensorium/orientation: awake and alert Speech: speech normal Course Vital Signs Vital signs: Vital Signs Temperature 98.3 F 06/23/25 16:30 Pulse Rate 92 H 06/23/25 16:30 Respiratory Rate 18 06/23/25 16:30 Blood Pressure 158/72 H 06/23/25 16:30 Pulse Oximetry 97 06/23/25 16:30 Oxygen Delivery Method Room Air 06/23/25 16:30 Temperature 98.3 F 06/23/25 16:30 Pulse Rate 92 H 06/23/25 16:30 Respiratory Rate 18 06/23/25 16:30 Blood Pressure 158/72 H 06/23/25 16:30 Pulse Oximetry 97 06/23/25 16:30 Oxygen Delivery Method Room Air 06/23/25 16:30 MDM - Head Injury MDM Narrative Medical decision making narrative: CT scans of the head and cervical spine were negative for acute findings. Findings were discussed. Follow up with pcp for a recheck, further evaluation and treatment. Return to the ED if condition worsens. She was discharged to her family member. Differential Diagnosis Differential diagnosis: Likely epidural hematoma, closed head injury, subarachnoid hematoma and subdural hematoma Medical Records Attestation: I reviewed the patient's medical records. Imaging Data CT scan - head: Attestation: I have reviewed the pertinent imaging results. Radiologist's impression: ITS Impressions Cervical Spine CT 06/23/25 16:45 IMPRESSION: NO CERVICAL SPINE FRACTURE MULTILEVEL DEGENERATIVE CHANGE. Impression dictated by: Charlie Patel M.D. 06/23/2025 5:26 PM Dictation Location: [employer] Electronically authenticated by: [id number] Y Date: 06/23/2025 17:[address] 06/23/25 16:50 IMPRESSION: NO ACUTE INTRACRANIAL ABNORMALITY. MINOR CHRONIC SMALL VESSEL CHANGES. Impression dictated by: Charlie Patle M.D. 06/23/2025 5:23 PM Dictation Location: [employer] Electronically authenticated by: [id number] Y Date: 06/23/2025 17:23 Discharge Plan Discharge Chief Complaint: Head Injury Clinical Impression: Closed head injury Patient Disposition: Home, Self-Care Time of Disposition Decision: 17:30 Condition: Good Mode of Transportation: Private Vehicle Prescriptions / Home Meds: No Action aspirin 81 mg tablet,delayed release (DR/EC) 81 mg PO DAILY Actemra ACTPen 162 mg/0.9 mL pen injector 162 mg subcut Q14D multivitamin [Daily Multi-Vitamin] Tablet 1 tab PO DAILY prednisone 2.5 mg tablet 2.5 mg PO DAILY omeprazole 20 mg capsule,delayed release(DR/EC) 20 mg PO DAILY alendronate 70 mg tablet 70 mg PO DAILY Print Language: Singaporean Instructions: Head Injury (ED), Hematoma (ED) Additional Instructions: Return to the ED for worsening symptoms. Referrals: RENE JENKINS [Primary Care Provider, Unknown] - 1 week
--- OUTSIDE RECORDS SUMMARY | 2025-06-23 16:36 | XMS_ITS | Patient Health Record ---
Author Organization [facility] es Address [address] [place] [address] Care Team Providers Care Channel Specialist Name Role Phone Dr. Asa Pandya Primary Care Provider Gladis Baltazar Unavailable [phone] Katia Chacko Unavailable [phone] Reason For Referral No Information Encounters Encounter Location Date Provider Diagnosis [facility] [address] [place] [address] 04/27/2025 Katia Chacko Dental caries on pit and fissure surface penetrating into dentin K02.52 [facility] [address] [place] [address] 10/18/2024 Katia Chacko Other dental procedu re status Z98.818 ; Encounter for dental examination and cleaning with abnormal findings Z01.21 ; Disturbances in tooth eruption K00.6 ; Dental caries on pit and fissure surface penetrating into dentin K02.52 and Acute gingivitis, plaque induced K05.00 Assessments Encounter Date Diagnosis (ICD Code) Assessment Notes Treatment Notes Treatment Clinical Notes Section Notes 10/18/2024 Other dental procedure status (I CD-10 - Z98.818) 04/27/2025Dental caries on pit and fissure surface penetrating into dentin (ICD- 10 - K02.52)10/18/2024Encounter for dental examination and cleaning with abnormal findings (ICD-10 - Z01.21)10/18/2024Disturbances in tooth eruption (ICD-10 - K00.6)10/18/2024Dental caries on pit and fissure surface penetrating into dentin (ICD-10 - K02.52)5Acute gingivitis, plaque induced (ICD-10 - K05.00) Plan Of Treatment Next Appt Details Provider Name:Katia Chacko, 08/29/2025 10:30:00 AM, [address], [place], [address], Provider Name:Katia Chacko, 09/01/2025 10:30:00 AM, [address], [place], [address], Insurance Providers Payer Name Payer Address Payer Phone Subscriber Number Group Number Insured Name Patient Relationship to Insured Coverage Start Date Coverage End Date [facility] P[facility] MEDICARE ADVANTAGE [address] [address] [place] [address] [id number] LAMIN DALALelf - patient is the [id number]
--- OUTSIDE RECORDS SUMMARY | 2025-06-23 16:39 | XMS_ITS | CCD ---
Author Organization [facility] Care Team Providers Care Flocculator Operator Name Role Phone LEAH, DR PATO Perez Admitting Unavailalonso LYNN, DR PATO Perez Consulting Unavailabl e LEAH, [...] Unavailable Giedraitis , Andvolodymyr Gordon Attending Unavailable Giannaraitis , [...] Primary Care Unavailable TREVIN LÓPEZ Referring Unavailable JORGE, JOHN Ambrocio Primary Care Unavailable RICKIE STEWART Attending Unavailable JORGE, JOHN Ambrocio Primary Care Unavailable MAHNAZ OCHOA Attending Unavailable JOHN PATEL Referring Unavailable SALACHER, GIOVANNA Primary Care Unavailable MOUNA BAUTISTA Attending Unavailable GIOVANNA GRAF Referring Unavailable SALACHER, GIOVANNA Primary Care Unavailable JOHN PATEL P Referring Unavailable HOUSE, OJHN P Primary Care Unavailable HOUSE, JOHN P Referring Unavailable HOUSE, JOHN P Primary Care Unavailable HOUSE, JOHN P Referring Unavailable HOUSE, JOHN P Primary Care Unavailable ALYSIAMOUNA FLEMING Attending Unavailable JORGE, JOHN P Referring Unavailable ROHRBACHER, GIOVANNA Primary Care Unavailable Rohrbacher VP PURCHASING-GANTRY CRANE OPERATOR, Giovanna Primary Care Provid er Jorge John CORREA Cristóbal Primary Care Provider Zekerbacher VP PURCHASING-GANTRY CRANE OPERATOR, Giovanna Primary Care Provid er ALTOROK NEZAM I Attending Unavailable ALTOROK, NEZAM I Attending Unavailable ALTOROK, NEZAM I Attending Unavailable ALTOROK, NEZAM I Attending Unavailable Rohrbacher Giovanna HUANG Primary Care Provider Zekerbacher Giovanna HUANG Attending Provider Zekerbacher VP PURCHASING-GANTRY CRANE OPERATOR, Giovanna Primary [facility] er MYRA COTA Attending Unavailable GIOVANNA GRAF Referring Unavailable ZEKERBACHER, GIOVANNA Primary Care Unavailable MYRA COTA Attending Unavailable ZEKERBACHERGIOVANNA Referring Unavailable ZEKERBACHER, GIOVANNA Primary Care Unavailable MYRA COTA Attending Unavailable ZEKERBACHERGIOVANNA Referring Unavailable ROHRBACHER, GIOVANNA Primary Care Unavailable Allergies Allergy ClassificationReported Allergen(s)Allergy TypeDate of OnsetReaction(s) Facility (1 source)PenicillinsDrug allergy (disorder)[facility] Repository (16 sources)Penicillin; Translations: [PENICILLIN]Drug Nsiwlqo30-89-4079 Conf[facility] (1 source)Ciprofloxacin; Translations: [CIPROFLOXACIN]Drug [id number] [facility] Repository Medications Current Medications MedicationDrug Class(es)DatesSig (Normalized)Sig (Original)acetaminophen 500 mg oral capsule (20 sources)Start: 26-88-9165viak 1 capsule by mouth every six hours as needed Acetaminophen 500 mg capsule Active 500 MG PO Every 6 hours as needed October 16, 2023 1:00am Complies with drug therapyStart: 09-23-2023 End: 89-32-7765xdyc 4 g by mouth every twenty-four hours as mg, oral, 3 times daily PRN, mild pain - pain scale 1-3, moderate pain - pain scale 4-6, Temperature greater than 38.3 C, Starting on Fri09/23/23 at 0032, For 2 doses, [Warning: Total Acetaminophen not to exceed more than 4 grams (4000 mg) in 24 hours]take 1 tablet by mouth every six hours as needed for painacetaminophen (TYLENOL EXTRA STRENGTH) 500 mg tablet Take 1 tablet (500 mg total) by mouth every 6 (six) hours as needed for pain. Activealendronic acid 70 mg oral tablet (3 sources)BisphosphonateStart: 03-15-2025 End: 42-51-5883qnbt 1 tablet by mouth every weekAlendronate 70 mg tablet Active 70 MG PO every week May 17, 2025 12:00am Complies with drugtherapy aspirin 81 mg delayed release oral tablet (19 sources)Platelet Aggregation Inhibitor, Nonsteroidal Anti-inflammatory Drug Start: 09-26-2023 End: 33-53-1936yvjd 1 tablet by mouth once dailyAspirin 81 mg tablet,delayed release (DR/EC) Active 81 MG PO Daily October 16, 2023 1:00am Complies with drug therapyaspirin 81 mg chewable tablet Chew 1 tablet (81 mg total) and swallow in the morning. Activeferrous sulfate 325 mg oral tablet (14 sources)Start: 32-40-7097cdet 1 tablet by mouth twice dailyFerrous Sulfate (Feosol) 325 mg (65 mg iron) tablet Active 325 MG PO Twice daily December 29, 2023 12:00am Complies with drug therapyStart: 11-06-2023 End: 46-89-7424jaqk 1 tablet by mouth in the morning, then take 1 tablet by mouth at mealtimeferrous sulfate 325 (65 FE) mg EC tablet Take 1 tablet (325 mg total) by mouth in the morning and 1tablet (325 mg total) in the evening. Take with meals. 180 tablet 1 11/06/2023 06/13/2025 Discontinuedfluticasone propionate 0.05 mg/actuat metered dose nasal spray (16 sources)CorticosteroidStart: 80-88-5211jovx 2 spray(s) nasal route in the morningfluticasone propionate (FLONASE) 50 mcg/actuation nasal spray Administer 2 sprays into each nostrilin the morning. 01/23/2024 ActiveStart: 33-17-1267mvgx 1 spray(s) nasal route twice dailyFluticasone Propionate 50 mcg/actuation spray,suspension Active 0 .ROUTE .COMPLEX 48 January 2248:38am USE 1 SPRAY IN EACH NOSTRIL TWICE A DAY Complies with drug therapyStart: 12-29-2023 End: 87-62-9506xxrq 1 spray(s) nasal route twice dailyFluticasone Propionate (Flonase Allergy Relief) 50 mcg/actuation spray,suspension Discontinued 1 SPRAY INTRANASAL Twice daily 16 December 29, 2023 12:00am January 23, 2024 8:38am administer into each sxadjtanriwesvsmhfw-srdehibz-iarigt (MULTIVITAMIN 50 PLUS) tablet (3 sources)Start: 10-06-2024 End: 79-28-5408lzvnfgncivek-minerals-lutein (MULTIVITAMIN 50 PLUS) tablet Take 1 tablet by mouth in the morning. 10/06/2024 10/06/2025 Activeomeprazole 20 mg delayed release oral capsule (7 sources)Proton Pump InhibitorStart: 12-16-2024 End: 49-77-7312ktzx 1 capsule by mouth once dailyOmeprazole 20 mg capsule,delayed release(DR/EC) Active 20 MG PO Daily 90 90 February 15, 2025 10:47amComplies with drug therapytake 2 capsules by mouth in the morning omeprazole (PriLOSEC) 10 mg capsule Take 2 capsules (20 mg total) by mouth in the morning. ActivepredniSONE 2.5 mg oral tablet (20 sources)Start: 34-49-4364ddjw 1 tablet by mouth once dailyPrednisone 2.5 mg tablet Active 2.5 MG PO Daily May 17, 2025 1:22pm Complies with drug therapyStart: 02-15-2025 End: 20-80-4868ndcs 4 tablets by mouth once dailyPrednisone 2.5 mg tablet Discontinued 10 MG PO Daily February 15, 2025 10:36am May 17, 2025 1:23pm Start: 04-13-2024 End: 21-79-6192sczp 2 tablets by mouth once dailyPrednisone 2.5 mg tablet Discontinued 5 MG PO Daily April 13, 2024 12:00am February 15, 2025 10:37am Start: 16-13-3218srmv 5 mg by mouth once dailyPrednisone Active 5 MG PO Daily April 13, 2024 12:00amStart: 10-57-1274qjnl 0.5 tablet by mouth once daily in the morningpredniSONE (DELTASONE) 20 mg tablet Take 2.5 mg by mouth in the morning. Until 01/09/24 then going to 1/2 tablet a day. 10/16/2023 ActiveStart: 10-16-2023 End: 43-29-5271vtdk 1 tablet by mouth once dailyPrednisone 20 mg tablet Discontinued 20 MG PO Daily December 29, 2023 9:29am April 13, 2024 11:02amStart: 10-16-2023 End: 50-96-6029roeq 60 mg by mouth once dailyPrednisone Discontinued 60 MG PO Daily October 16, 2023 1:00am December 29, 2023 9:30amStart: 09-27-2023 End: 55-72-3146mrhc 3 tablets by mouth once dailyPrednisone 20 mg tablet Discontinued 60 MG PO Daily October 16, 2023 1:00am December 29, 2023 9:30am Start: 09-26-2023 End: 33-49-5083bowaarQOVX (DELTASONE) tablet 60 mg0.9 ml tocilizumab 180 mg/ml prefilled syringe (6 sources)Interleukin-6 Receptor Antagonistinject 0.9 mL by subcutaneous injection every weekACTEMRA 162 mg/0.9 mL injection Inject 0.9 mL (162 mg total) under the skin once a week. Activevitamin b12 1 mg oral capsule (20 sources)Vitamin Y21Eqshp: 16-50-0805rhlz 1 capsule by mouth once daily Cyanocobalamin (Vitamin B-12) 1,000 mcg capsule Active 1000 MCG PO Daily October 16, 2023 1:00amComplies with drug therapyStart: 09-23-2023 End: 40-09-0700ggbb 1 tablet by mouth in the morningcyanocobalamin 1000 MCG tablet Take 1 tablet (1,000 mcg total) by mouth in the morning. 10/22/2023 0 04/19/2024 Active End: 93-13-2308nils 1 tablet by mouth in the morningcyanocobalamin 250 MCG tablet Take 1 tablet (250 mcg total) by mouth in the morning. 06/13/2025 Disc ontinued Completed/Discontinued Medications MedicationDrug Class(es)DatesSig (Normalized)Sig (Original)azithromycin 250 mg oral tablet (4 sources)Macrolide AntimicrobialStart: 10-13-2024 End: 13-76-8261Gywbhldpurdx 250 mg tablet Discontinued 0 PO daily 6 5 October 13, 2024 1:00am December 16, 2024 2:10pm Take 2 on day 1 and then take 1 for the next 4 days (days 2-5)ciprofloxacin 500 mg oral tablet (8 sources)Quinolone AntimicrobialStart: 06-24-2018 End: 13-10-3758tvkg 1 tablet by mouth twice dailyCiprofloxacin Hcl 500 mg tablet Discontinued 500 MG PO Twice daily 14 June 24, 2018 12:00am June 30, 2018 1:00am July 01, 2018 1:02amdocusate sodium 50 mg / sennosides, intermediate 8.6 mg oral tablet (1 source)Start: 09-23-2023 End: 71-27-2801jwsm 1 tablet by mouth every twelve hours as needed for constipation1 tablet, oral, Every 12 hours PRN, constipation, Starting on Fri09/23/23 at 09703.4 ml enoxaparin sodium 100 mg/ml prefilled syringe (1 source)Low Molecular Weight HeparinStart: 09-23-2023 End: 83-78-9661rvdiuqzmbu (LOVENOX) syringe 40 mg1 ml fentaNYL 0.05 mg/ml injection (1 source)Opioid AgonistStart: 09-25-2023 End: 19-79-1917wgpauNVT (SUBLIMAZE) injection 50 mcgfurosemide 20 mg oral tablet (2 sources)Loop DiureticStart: 05-17-2025 End: 00-66-5276jogd 1 tablet by mouth once daily in the morningFurosemide (Lasix) 20 mg tablet Discontinued 20 MG PO Every morning 7 May 17, 2025 12:00am May 23, 2025 9:49amgadoteridoL (PROHANCE) injection 5.26 mmol 10.52 mL (1 source)Start: 09-24-2023 End: 07-60-1761lvjwesbxhpZ (PROHANCE) injection 5.26 mmol 10.52 mLglucagon (rdna) 1 mg injection (1 source)Antihypoglycemic AgentStart: 09-23-2023 End: mg, intramuscular, As needed, low blood sugar, blood glucose less than 70 mg/dL and unconscious or NPO without IV access., Starting on Fri09/23/23 at 0032, If conscious and not NPO, immediately follow with meal tray or high protein (7Grams) snack if tray not available. If NPO, initiate IV 5% Dextr ose/Water at 100 mL/hr and contact prescriber for additional orders. If blood glucose is not greater than 70 mg/dL after initial treatment, repeat treatment. 150 ml glucose 50 mg/ml injection (3 sources)Start: 09-23-2023 End: 00-77-878899 g, oral, As needed, low blood sugar, blood glucose less than 70 mg/dL, Starting on Fri09/23/23 at 0032, If patient conscious and taking PO. If blood glucose is not greater than 70 mg/dL after initial treatment, repeat treatment.Start: 09-23-2023 End: mL, intravenous, As needed, low blood sugar, blood glucose less than 70 mg/dL and unconscious orNPO with IV access, Starting on Fri09/23/23 at [...] (RED) Warning: HYPERTONIC solution. Start: 09-23-2023 End: 88-04-7334dutd 70 mg intravenously every utlk477 mL/hr, intravenous, Continuous PRN, blood glucose less [...] chloride 0.9 % 50 mL IVPB (2 sources)Start: 09-24-2023 End: 16-03-5610uxusqxCXUSAPBblntq sodium succinate (Solu-MEDROL) 1,000 mg in sodium chloride 0.9 % 50 mL IVPBStart: 09-23-2023 End: 17-54-6734slqruwTZCBUJUamsmo sodium succinate (Solu-MEDROL) 1,000 mg in sodium chloride 0.9 % 50 mL IVPB2 ml ondansetron 2 mg/ml injection (1 source)Serotonin-3 Receptor AntagonistStart: 09-23-2023 End: 09-98-1823niji 4 mg intravenously every eight hours as needed for nausea and vomiting4 mg, intravenous, Every 8 hours PRN, nausea, vomiting, Starting on Fri09/23/23 at 0032, Administerover 2-5 minutes.oxybutynin chloride 5 mg oral tablet (8 sources)Cholinergic Muscarinic AntagonistStart: 06-24-2018 End: 39-68-9000asod 1 tablet by mouth twice dailyOxybutynin Chloride 5 mg tablet Discontinued 5 MG PO Twice daily June 24, 2018 12:00am October 16, 2023 12:96xk391 ml sodium chloride 9 mg/ml prefilled syringe (5 sources)Start: 09-23-2023 End: mL, intravenous, Every 12 hours scheduled, First dose on Fri09/23/23 at 0045Start: 09-23-2023 End: 54-03-2549cmhclg chloride 0.9 % flush 10 mLStart: 09-23-2023 End: 02-90-7138rwej 20 mL intravenously every hour as jiahva16 mL/hr, intravenous, Continuous PRN, to maintain patency of lines, Starting on Fri09/23/23 at 0032Start: 09-23-2023 End: 39-73-1143sfvf 25 mL intravenously every hour as jwgzun59 mL, intravenous, at 100 mL/hr, Administer over 15 Minutes, As needed, line care, line care after IVPB administration, Starting on Fri09/23/23 at 0032sulfamethoxazole 800 mg / trimethoprim 160 mg oral tablet (20 sources)Dihydrofolate Reductase Inhibitor Antibacterial, Sulfonamide AntimicrobialStart: 10-16-2023 End: 85-97-0140hyyt 1 tablet by mouth three times dailySulfamethoxazole- Trimethoprim (Bactrim Ds) 800-160 mg tablet Discontinued 1 TAB PO Three times daily October 16, 2023 1:00am April 13, 2024 10:48amStart: 09-29-2023 End: 01-54-3385sjhs 1 tablet by mouth three times weeklysulfamethoxazole- trimethoprim (BACTRIM DS) 800-160 mg per tablet Take 1 tablet by mouth 3 (three) times a week for 30 days. 12 tablet 0 09/29/2023 10/29/2023 ActiveStart: 09-26-2023 End: 88-18-4494fcgsiofmxjoidmvg-trimethoprim (BACTRIM DS) 800-160 mg tablet 1 tablettiZANidine 2 mg oral tablet (4 sources)Central alpha-2 Adrenergic AgonistStart: 10-13-2024 End: 00-45-3331ektm 1 tablet by mouth every eight hours as neededTizanidine 2 mg tablet Discontinued 2 MG PO Every 8 hours as needed for muscle spasticity 30 October 13, 2024 1:00am May 17, 2025 1:23pm Problems Active Problems Problem ClassificationProblemDateDocumented DateEpisodic/ChronicBlindness and vision defects (12 sources)Bilateral visual impairment; 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, both eyes]63-66-3149DgzxuokJcmxdhin of urinary tract (1 source)Personal history of urinary calculi; Translations: [PERSONAL HISTORY OF URINARY CALCULI]Onset: 66-39-2585OaeczaneAdhqavzcxg and other anemia (13 sources)Normocytic anemia; Translations: [Anemia, unspecified]Onset: 380663-35-3824IylpbijjPfxaleqosy and other anemia (5 sources)Anemia; Translations: [Anemia, unspecified]14-08-2820Gxadnztc Disorders of lipid metabolism (2 sources)Other hyperlipidemia; Translations: [Other hyperlipidemia]Onset: 38-96-1942AkhtbvcTynyflnolh disorders (13 sources)Gastroesophageal reflux disease; Translations: [Gastro-esophageal reflux disease without esophagitis]50-87-8594IouwfzdIhqfwovypwwmk symptoms and ill-defined conditions (4 sources)Increased frequency of urination; Translations: [Frequency of micturition]52-28-0204JounboviVmdadszc disorders (2 sources)Immunodeficiency, unspecified; Translations: [Immunodeficiency, unspecified]Onset: 74-38-1895JyhxxctGfnwsbfvn of unspecified nature or uncertain behavior (14 sources)Thrombocytosis; Translations: [Thrombocytosis]Onset: 11-06-2023 63-52-7523UhhenxgrFreftmdtgfhx (2 sources)Age-related osteoporosis without current pathological fracture; Translations: [Age-related osteoporosis without current pathological fracture] Onset: 35-15-3336CfyohyjNpgwc aftercare (8 sources)Post-discharge follow-up; Translations: [Encounter for follow-up examination after completed treatment for conditions other than malignant neoplasm]43-95-2825PspzuaefPqmvl aftercare (2 sources)Encounter for follow-up examination after completed treatment for conditions other than malignant neoplasm; Translations: [Other follow-up examination]09-23-8837KhvhvrnbRscdd aftercare (2 sources)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; Translations: [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]Onset: 65-76-1473IgcqzmwbAnofj circulatory disease (2 sources)Other specified symptoms and signs involving the circulatory and respiratory systems; Translations:[Other specified symptoms and signs involving the circulatory and respiratory systems]Onset: 62-68-6157ZrgtufohMplyr connective tissue disease (1 source)Unspecified symptoms and signs involving the nervous system; Translations: [Unspecified symptoms and signs involving the nervous system] Onset: 43-99-6180HlwxhnanQtfzt connective tissue disease (4 sources)Spasm; Translations: [Other muscle spasm]24-03-1820XcgaqrrpYnmsv connective tissue disease (2 sources)Other muscle spasm; Translations: [Spasm of muscle]65-84-9713Nhezoenj Other injuries and conditions due to external causes (6 sources)At high risk for fall; Translations: [History of falling]04-14-2024 EpisodicOther injuries and conditions due to external causes (1 source)History of falling; Translations: [History of fall]02-23-5279Hrycsjmf Other non-traumatic joint disorders (5 sources)Pain in right knee; Translations: [Right knee pain]Onset: 04-25-2022 EpisodicOther non-traumatic joint disorders (1 source)Knee painEpisodicOther skin disorders (5 sources)Dry skin dermatitis; Translations: [Xerosis cutis]94-97-2048Nrszvinj Other skin disorders (1 source)Xerosis cutis; Translations: [Contact dermatitis and other eczema due to other specified agents]07-90-8417FvvjdazpDqxkzu media and related conditions (20 sources)Dysfunction of eustachian tube; Translations: [Unspecified Eustachian tube disorder, unspecified ear]67-07-5373EppbjmlcIsgeegik codes; unclassified (4 sources)Bilateral lower limb edema; Translations: [Localized edema]05-17-2025 EpisodicSpondylosis; intervertebral disc disorders; other back problems (1 source)Spondylosis without myelopathy or radiculopathy, cervical region; Translations: [SPONDYLS W/O MYELO-/RADICULOP CERV]Onset: 94-25-5838Yicbgdz Spondylosis; intervertebral disc disorders; other back problems (10 sources)Dorsalgia, unspecified; Translations: [Spinal stenosis, cervical region]Onset: 50-86-2587DwieklmyDfsyyrrs lupus erythematosus and connective tissue disorders (20 sources)Other giant cell arteritis; Translations: [Temporal arteritis]Onset: 770221-19-5903AkcyvgzWczjaasanngx (2 sources)Thrombocytosis, unspecified; Translations: [Thrombocytosis, unspecified]Onset: 01-38-9157Yeqdilrotwzs (1 source)CVA symptomsOnset: 93-08-9804Ithnclixvlww (1 source)M25.561 - Pain in right knee Past or Other Problems Problem ClassificationProblemDateDocumented DateEpisodic/ChronicBlindness and vision defects (18 sources)Other visual disturbances; Translations: [Blurring of visual image] Onset: 156448-16-3124BgzwfbahFjongtvsnl and other anemia (1 source)Anemia, unspecified; Translations: [Anemia, unspecified]Onset: 74-17-3241SmsqaupqG Codes: Fall (1 source)Fall on same level from slipping, tripping and stumbling without subsequent striking against object, initial encounter; Translations: [FALL SAME LVL SLIP NO STRK OBJ INIT]Onset: 44-99-6090CpjuqoupWzrxwjuyydqny and screening for infectious disease (4 sources)Encounter for screening for other viral diseases; Translations: [Other specified abnormal immunological findings in serum]Onset: 05-05-2024 EpisodicMood disorders (12 sources)Mood disordersOnset: 946212-28-0193Jbegwyujufq deficiencies (6 sources)Deficiency of other specified B group vitamins; Translations: [Cobalamin deficiency]Onset: 926113-76-4657UdtervcwFvrmw connective tissue disease (1 source)Pain in lower limbOnset: 38-30-5946AmimtngwRhryx connective tissue disease (14 sources)Neurological symptom; Translations: [Unspecified symptoms and signs involving the nervous system]Onset: 170978-68-0380JjdpncnoYaklhfsa codes; unclassified (1 source)Pain, unspecified; Translations: [Pain, unspecified]Onset: 09-24-2023 EpisodicSprains and strains (1 source)Sprain of unspecified site of right knee, initial encounter; Translations: [SPRAIN UNS SITE RT KNEEINITIAL]Onset: 60-54-9601Fpfavhrx Results Test NameValueInterpretationReference BhwutYcrjkcxv40yf 70-49-037488Evb the fosamax cause or increase depression symptoms per daughter's request?[facility] [id number] Jose David 1945 F Date Provider Department Center 03/15/2025 215-JT JASSO [facility] No family history on file Level of Service:28983 [place] OFFICE/OUTPATIENT ESTABLISHED MOD MDM 30 MIN () Reason for Visit and Comments: Follow-up [803217] - 6 Wk Follow Up On GCANormalUniversOhioHealth [facility]36on 44-86-265239Kbhce with patient order was routed through [employer] to [facility] imaging and hard copy mailed to patient.NormalParkview Health36on Spoke with Deya and apologized that they labs had not be located while I was off. I did call [facility] and lab results were sent immediately after my request. Daughter informed that Dr. Jasso will review and if any earlier follow up is needed that I would call them back.[facility]36Patient daughter would like a return dalia back,. She is wanting to know if lab results were found. Pressing Department Supervisor confirmed call back number.[facility] Campus[facility] [id number]-[id number] GlasscockJose 1945 F Date Provider Department Center 02/01/2025 215-JT JASSO I [facility] No family history on file Level of Service:35744 [place] OFFICE/OUTPATIENT ESTABLISHED MOD MDM 30 MIN () Reason for Visit and Comments: Follow-up [027877] - [facility]. Recent increase in Headaches started approximatly 2 weeks. Improvement with prednisoneNormalUniversity [facility]36on [id number] informing patient's daughter.[facility]36on 52-01-397506Exzbl with patient's daughter this morning and she is stable right now with slightly improved symptoms. She is currently taking Prednisone 2.5mg daily , should she come into office or change medications? Please advise. ThanksNormalUniversOhioHealth Riverside Methodist HospitalBasophils Auto (Bld) [#/Vol]on 79-07-0503Fjlkldjha (Bld) [#/Vol]Automated basophil count0.0-0.1FProtestant Deaconess HospitalBasophils/100 WBC Auto (Bld)on 93-61-2581Yhszhefah/100 WBC (Bld)Automated basophil %0.2-2.0[facility] Eosinophils/100 WBC Auto (Bld)on 70-30-0181Cteyrluensu/100 WBC (Bld)Automated eosinophil %0.9-7.0[facility] CenterErythrocyte distribution width Auto (RBC) [Ratio]on 91-44-4695Xbdqpqxpdtr distribution width (RBC) [Ratio]Erythrocyte distribution width [Ratio] by Automated count11.0-15.0 [facility] CenterEstimated glomerular filtration rate (GFR) non- Americanon 27-60-1130OAB/1.73 sq M.predicted among non-blacks MDRD (S/P/Bld) [Vol rate/Area]Estimated glomerular filtration rate (GFR) non- AmericanLow>=60 mL/min/1.73m 2FProtestant Deaconess HospitalHematocrit Auto (Bld) [Volume fraction]on 05-10-0066Fukrybblfy (Bld) [Volume fraction]Hematocrit [Volume Fraction] of Blood by Automated count36.0-48.0[facility] CenterHemoglobin [Mass/volume] in Bloodon 70-67-3411Gnyrfrjhqs (Bld) [Mass/Vol] Hemoglobin [Mass/volume] in Blood12.0-16.0[facility] Laboratory - Chemistry and Chemistry - challengeon 30-54-6648Orwbxid [Mass/Vol] 9.3 mg/dL8.5-10.1FProtestant Deaconess HospitalChloride [Moles/Vol]106 mmol/L 98-107[facility] CenterCO2 [Moles/Vol]31.8 mmol/L21.0-32.0 [facility] CenterCreatinine [Mass/Vol]0.92 mg/dL0.55-1.02 [facility] CenterGFR/1.73 sq M.predicted MDRD (S/P/Bld) [Vol rate/Area]mL/min/{1.73_m2}>=60 mL/min/1.73m 2FProtestant Deaconess Hospital Glucose [Mass/Vol]98 mg/hB40-430ZknhjukoiUniversity Hospitals Lake West Medical CenterPotassium [Moles/Vol]3.8 mmol/L3.5-5.1FAvita Health Systemodium [Moles/Vol] 145 mmol/O087-402EmhkogtkjUniversity Hospitals Lake West Medical CenterUrea nitrogen [Mass/Vol]30.0 mg/dLHigh7.0-18.0[facility] CenterUrea nitrogen/Creatinine [Mass ratio]32.6 mg/mgUniversity Hospitals Lake West Medical CenterLaboratory - Hematology and Cell countson 97-36-3931Doqxzlew granulocytes/100 WBC (Bld)0.1 %0.0-0.5Fire[facility] Regional Medical CenterLeukocytes [#/volume] corrected for nucleated erythrocytes in Blood by Automated counon 23-55-5189LVC corrected for nucl RBC Auto (Bld) [#/Vol]Leukocytes [#/volume] corrected for nucleated erythrocytes in Blood by Automated coun4.0-11.0[facility] Medical CenterLymphocytes Auto (Bld) [#/Vol]on 16-66-7919Gqlbomwtxxr (Bld) [#/Vol]Lymphocytes [#/volume] in Blood by Automated countHigh1.2-3.8[facility] Lymphocytes/100 WBC Auto (Bld)on 89-65-0010Jsfvevruvrv/100 WBC (Bld) Lymphocytes/100 leukocytes in Blood by Automated count20.5-60.0[facility] HospitalH Auto (RBC) [Entitic mass]on 68-65-3476GMU (RBC) [Entitic mass]MCH [Entitic mass] by Automated count26.7-34.0[facility] CenterMCHC Auto (RBC) [Mass/Vol]on 56-60-5356LOOI (RBC) [Mass/Vol]MCHC [Mass/volume] by Automated count29.9-35.2FProtestant Deaconess HospitalMCV Auto (RBC) [Entitic vol]on 34-49-4117ITL (RBC) [Entitic vol]MCV [Entitic volume] by Automated count81.0-99.0[facility] CenterMonocytes Auto (Bld) [#/Vol]on 39-28-5065Nlqkxsuwq (Bld) [#/Vol]Automated blood monocyte count0.3-0.8 [facility] CenterMonocytes/100 WBC Auto (Bld)on 12-10-2024 Monocytes/100 WBC (Bld)Automated monocyte %1.7-12.0[facility] CenterNeutrophils Auto (Bld) [#/Vol]on 69-28-0403Justgtocbyh (Bld) [#/Vol] Neutrophils [#/volume] in Blood by Automated count1.4-6.5FProtestant Deaconess HospitalNeutrophils/100 WBC Auto (Bld)on 91-28-5237Pxrvhcafofk/100 WBC (Bld)Automated neutrophil %Low43.0-75.0[facility] CenterNo Panel Informationon 17-47-0864Psboqbulygm # (Auto)0.2 10 3/uL0.0-0.7FProtestant Deaconess HospitalImmature Granulocyte # (Auto)0.01 10 3/uL0.00-0.03 [facility] CenterTroponin I High Yfaizmidfgh46.3 pg/mL4.0-51.3 [facility] CenterComment on above:CUT-OFF POINTS HAVE BEEN ESTABLISHED BASED ON THE FOURTHUNIVERSAL DEFINITION OF MYOCARDIAL INFARCTION. THE UPPERREFERENCE LIMIT (URL) OF TROPONIN, DEFINED THE 99THPERCENTILE OF cTnI DISTRIBUTION IN A REFERENCE POPULATION,HAS BEEN CONFIRMED THE DECISION THRESHOLD FOR MIDIAGNOSIS.99TH PERCENTILE = 51.4 PG/MLNOTE: HIGH-SENSITIVITY TROPONIN ASSAY IS NOT INTENDED TO BEUSED IN ISOLATION BUT SHOULD BE INTERPRETED IN CONJUNCTIONWITH OTHER DIAGNOSTIC AND CLINICAL INFORMATION.Platelet mean volume Auto (Bld) [Entitic vol]on 84-59-3055Qqjjsbkg mean volume (Bld) [Entitic vol]Platelet mean volume [Entitic volume] in Blood by Automated count9.5-13.5 [facility] CenterPlatelets Auto (Bld) [#/Vol]on 12-10-2024 Platelets (Bld) [#/Vol]Platelets [#/volume] in Blood by Automated lkeea401-798 [facility] CenterRBC Auto (Bld) [#/Vol]on 78-44-7260NFD (Bld) [#/Vol]Erythrocytes [#/volume] in Blood by Automated countLow4.20-5.40Cleveland Clinicerum or plasma anion gap determinationon 36-09-7151Wnuez gap [Moles/Vol]Serum or plasma anion gap determinationUniversity Hospitals Lake West Medical Center36on [phone] with patient's daughter and she is requesting training on pen device. [facility] performed training in the past. Given phone number for pharmacy.NormalUnLicking Memorial HospitalRefillon 80-47-2008Pmngqo [phone] Jose David 1945 F Date Provider Department Center 11/23/2024 LINDSAY JACKSON UTCF [facility] No family history on file Reason for Visit and Comments: Med Refill [[id number]][facility]36on Informed CBC, ESR , Albumin and globulin level received from [facility]36Spoke with daughter, informed that we had not received any lab results on the patient. Daughter states that they were completed earlier this month at [facility]. LVM at [facility] requesting results of lab be faxed to our office DARRYL. Fax number and contact number left on voicemail with [facility] records. Awaiting resultsNormalUniversity of [facility]36LVM again returning daughter's call regarding Lab results.[facility]36on [phone], patient's daughter, Malinda, would like a callback at [phone] to discuss lab resultsNormalUniversity of Palestine Regional Medical CenterTelephone [phone] Jose David 1945 F Date Provider Department Center 11/12/2024 JT CROOK I [facility] No family history on fileNormalUniversity of [address] [phone] returning call. I do not have any recent lab results in the patient's chart.[facility]36Patient daughter called about lab results.NormalParkview HealthBasophils Auto (Bld) [#/Vol]on 04-42-9718Wgrkkfqqf (Bld) [#/Vol]Automated basophil count0.0-0.1 [facility] CenterBasophils/100 WBC Auto (Bld)on 11-06-2024 Basophils/100 WBC (Bld)Automated basophil %0.2-2.0[facility] CenterEosinophils/100 WBC Auto (Bld)on 03-65-8947Jwoiyxaayto/100 WBC (Bld) Automated eosinophil %0.9-7.0[facility] CenterErythrocyte distribution width Auto (RBC) [Ratio]on 03-20-5116Ykvwxklnkcd distribution width (RBC) [Ratio]Erythrocyte distribution width [Ratio] by Automated count11.0-15.0 [facility] CenterEstimated glomerular filtration rate (GFR) non- Americanon 05-28-9406UTT/1.73 sq M.predicted among non-blacks MDRD (S/P/Bld) [Vol rate/Area]Estimated glomerular filtration rate (GFR) non->=60 mL/min/1.73m 2FProtestant Deaconess HospitalGlobulin Calc (S) [Mass/Vol]on 48-12-4621Bonssquz (S) [Mass/Vol]Serum globulin measurement by calculation (mass/volume)[facility] CenterHematocrit Auto (Bld) [Volume fraction]on 65-48-1337Dcolaitzcx (Bld) [Volume fraction]Hematocrit [Volume Fraction] of Blood by Automated count36.0-48.0[facility] CenterHemoglobin [Mass/volume] in Bloodon 28-46-3613Enylkhcsxe (Bld) [Mass/Vol] Hemoglobin [Mass/volume] in NsqzpYqr20.0-16.0[facility] Laboratory - Chemistry and Chemistry - challengeon 17-35-0100Yxtears [Mass/Vol] 3.5 g/dL3.4-5.0[facility] CenterALP [Catalytic activity/Vol]64 U/X97-287ZfplghepwUniversity Hospitals Lake West Medical CenterALT [Catalytic activity/Vol]26 U/L 14-59[facility] CenterAST [Catalytic activity/Vol]19 U/L15-37 [facility] CenterBilirubin [Mass/Vol]0.6 mg/dL0.2-1.0[facility] CenterCalcium [Mass/Vol]8.9 mg/dL8.5-10.1FProtestant Deaconess HospitalChloride [Moles/Vol]107 mmol/K04-667FfhtmsnnlUniversity Hospitals Lake West Medical CenterCO2 [Moles/Vol]31.8 mmol/L21.0-32.0[facility] Creatinine [Mass/Vol]0.81 mg/dL0.55-1.02[facility] GFR/1.73 sq M.predicted MDRD (S/P/Bld) [Vol rate/Area]mL/min/{1.73_m2}>=60 mL/min/1.73m 2FProtestant Deaconess HospitalGlucose [Mass/Vol]90 mg/iE56-173 [facility] CenterPotassium [Moles/Vol]4.1 mmol/L3.5-5.1FProtestant Deaconess HospitalProtein [Mass/Vol]6.0 g/dLLow6.4-8.2FAvita Health Systemodium [Moles/Vol]145 mmol/A947-918BzhjovihgUniversity Hospitals Lake West Medical CenterUrea nitrogen [Mass/Vol]28.0 mg/dLHigh7.0-18.0[facility] CenterUrea nitrogen/Creatinine [Mass ratio]34.6 mg/mgUniversity Hospitals Lake West Medical CenterLaboratory - Hematology and Cell countson 04-54-6241CSO (Bld) [Velocity]2 mm/h<=30[facility] CenterImmature granulocytes/100 WBC (Bld)0.0 %0.0-0.5FProtestant Deaconess HospitalLeukocytes [#/volume] corrected for nucleated erythrocytes in Blood by Automated counon 22-80-3787NPW corrected for nucl RBC Auto (Bld) [#/Vol]Leukocytes [#/volume] corrected for nucleated erythrocytes in Blood by Automated coun4.0-11.0[facility] Lymphocytes Auto (Bld) [#/Vol]on 98-82-7625Aixhslvcdvs (Bld) [#/Vol]Lymphocytes [#/volume] in Blood by Automated count1.2-3.8[facility] Lymphocytes/100 WBC Auto (Bld)on 16-33-3295Xutdaaivvjk/100 WBC (Bld) Lymphocytes/100 leukocytes in Blood by Automated count20.5-60.0[facility] CenterMCH Auto (RBC) [Entitic mass]on 91-16-1813JRZ (RBC) [Entitic mass]MCH [Entitic mass] by Automated count26.7-34.0[facility] CenterMCHC Auto (RBC) [Mass/Vol]on 36-51-4172QILK (RBC) [Mass/Vol]MCHC [Mass/volume] by Automated count29.9-35.2FProtestant Deaconess HospitalMCV Auto (RBC) [Entitic vol]on 23-60-8529UUC (RBC) [Entitic vol]MCV [Entitic volume] by Automated count81.0-99.0[facility] CenterMonocytes Auto (Bld) [#/Vol]on 81-55-1616Penndgvnw (Bld) [#/Vol]Automated blood monocyte count0.3-0.8 [facility] CenterMonocytes/100 WBC Auto (Bld)on 11-06-2024 Monocytes/100 WBC (Bld)Automated monocyte %1.7-12.0[facility] CenterNeutrophils Auto (Bld) [#/Vol]on 86-19-0017Oyykmbmljcf (Bld) [#/Vol] Neutrophils [#/volume] in Blood by Automated count1.4-6.5FProtestant Deaconess HospitalNeutrophils/100 WBC Auto (Bld)on 10-19-1015Zvbvxvphjph/100 WBC (Bld)Automated neutrophil %Low43.0-75.0[facility] CenterNo Panel Informationon 64-75-7048Uuylwldudpk # (Auto)0.2 10 3/uL0.0-0.7FProtestant Deaconess HospitalImmature Granulocyte # (Auto)0.00 10 3/uL0.00-0.03 [facility] CenterPlatelet mean volume Auto (Bld) [Entitic vol]on 24-39-5234Szfjrjic mean volume (Bld) [Entitic vol]Platelet mean volume [Entitic volume] in Blood by Automated countLow9.5-13.5FProtestant Deaconess Hospital Platelets Auto (Bld) [#/Vol]on 46-45-5444Nweuevxvu (Bld) [#/Vol]Platelets [#/volume] in Blood by Automated svsxo735-445ZsnholxqiUniversity Hospitals Lake West Medical Center RBC Auto (Bld) [#/Vol]on 18-15-2816ZIZ (Bld) [#/Vol]Erythrocytes [#/volume] in Blood by Automated countLow4.20-5.40Cleveland Clinicerum or plasma albumin/globulin mass ratioon 52-49-8809Vrnagfc/Globulin [Mass ratio] Serum or plasma albumin/globulin mass ratioUniversity Hospitals Lake West Medical Center Serum or plasma anion gap determinationon 74-99-7881Zwakf gap [Moles/Vol]Serum or plasma anion gap determinationUniversity Hospitals Lake West Medical Center29on 22-42-424086Mqpgxacr by: LINDSAY TIERNEY on: 11/02/2024 10:24 AM Modules accepted: OrdersNormalUniGrand Lake Joint [facility] District [facility]36on 11-02-2024 36Spoke with patient's daughter. The orders were not faxed to [facility] last week. I refaxed the standing orders and mailed hard copies to patient. [facility]36Spoke with patient's daughter and they stated that [facility] did not receive. I will fax again and mail hard copies to patient.[facility]36The patient daught called stating they would like to speak with the GA to discuss the shot the patient receives every 14 days is not in the chart as well as lab apers are needing to be faxed over to [facility] because they have not been received.[facility]36on [phone] patient labs and fax them to the fax number provided.[facility] CampusOrders Onlyon 39-26-2071Ibidxl [id number] Jose David 1945 F Date Provider Department Center 10/28/2024 215-JT JASSO I RHC RHEUM Rolando [facility] No family history on [facility] systemNormalUAshtabula County Medical Center36on [phone] daughter called in requesting labs to be sent to john. Fax number provided is [phone]. Daughter stated that she wanted to know if she can have a standard order sent over from now on since these labs are required every three month.[facility] CampusTelephoneon 10-25-2024 [id number] Jose David 1945 F Date Provider Department Center 10/25/2024 215-SAMANTHAKJT I UTCF [facility] UTCF No family history on [facility] WaynealUAshtabula County Medical CenterFollow-Upon 67-53-2154Fqjchk-[id number] Jose David Kenna 1945 F Date Provider Department Center 10/06/2024 JT CROOK I [facility] No family history on file Level of Service:01228 [place] OFFICE/OUTPATIENT ESTABLISHED MOD MDM 30 [facility] HospitalBasophils Auto (Bld) [#/Vol]on 09-02-2024 Basophils (Bld) [#/Vol]Automated basophil count0.0-0.1FProtestant Deaconess HospitalBasophils/100 WBC Auto (Bld)on 18-99-5209Oxnvzcede/100 WBC (Bld)Automated basophil %0.2-2.0[facility] CenterCholesterol in LDL Calc [Mass/Vol]on 25-22-0089Geglmpoclgq in LDL [Mass/Vol]Cholesterol in LDL [Mass/volume] in Serum or Plasma by calculationUniversity Hospitals Lake West Medical Center Comment on above:<100 mg/dl XOKZERT026-142 mg/dl NEAR OR ABOVE SXDCXZP663-615 mg/dl BORDERLINE PJSE189-198 mg/dl HIGH>190 mg/dl VERY HIGHCholesterol in VLDL Calc [Mass/Vol]on 03-32-2782Bphwrkpsykq in VLDL [Mass/Vol]Cholesterol in VLDL [Mass/volume] in Serum or Plasma by calculationUniversity Hospitals Lake West Medical Center Eosinophils/100 WBC Auto (Bld)on 44-91-0298Honkvfbjcce/100 WBC (Bld)Automated eosinophil %0.9-7.0[facility] CenterErythrocyte distribution width Auto (RBC) [Ratio]on 69-86-3733Kygpxdghvou distribution width (RBC) [Ratio]Erythrocyte distribution width [Ratio] by Automated count11.0-15.0 [facility] CenterEstimated glomerular filtration rate (GFR) non- Americanon 86-34-5106FGL/1.73 sq M.predicted among non-blacks MDRD (S/P/Bld) [Vol rate/Area]Estimated glomerular filtration rate (GFR) non->=60 mL/min/1.73m 2FProtestant Deaconess HospitalGlobulin Calc (S) [Mass/Vol]on 79-45-3445Bdyhpgvs (S) [Mass/Vol]Serum globulin measurement by calculation (mass/volume)[facility] CenterHematocrit Auto (Bld) [Volume fraction]on 16-60-5611Rlkyjpmpta (Bld) [Volume fraction]Hematocrit [Volume Fraction] of Blood by Automated count36.0-48.0[facility] CenterHemoglobin [Mass/volume] in Bloodon 38-01-9861Smolinwnis (Bld) [Mass/Vol] Hemoglobin [Mass/volume] in Blood12.0-16.0[facility] CenterIron binding capacity [Mass/volume] in Serum or Plasmaon 74-39-8136Cfzx binding capacity [Mass/Vol]Iron binding capacity [Mass/volume] in Serum or Plasma 250.0-450.0[facility] CenterIron saturation [Mass Fraction] in Serum or Plasmaon 15-70-9995Idxx saturation [Mass fraction]Iron saturation [Mass Fraction] in Serum or PlasmaUniversity Hospitals Lake West Medical CenterLaboratory - Chemistry and Chemistry - challengeon 63-83-3117Nqtoqxq [Mass/Vol]3.6 g/dL 3.4-5.0[facility] CenterALP [Catalytic activity/Vol]62 U/L46-116 [facility] CenterALT [Catalytic activity/Vol]25 U/L14-59 [facility] CenterAST [Catalytic activity/Vol]19 U/L15-37 [facility] CenterBilirubin [Mass/Vol]0.5 mg/dL0.2-1.0[facility] CenterCalcium [Mass/Vol]8.9 mg/dL8.5-10.1FProtestant Deaconess HospitalChloride [Moles/Vol]107 mmol/W39-547OrqkctumhUniversity Hospitals Lake West Medical CenterCholesterol [Mass/Vol]315 mg/dLHigh<=200[facility] Cholesterol in HDL [Mass/Vol]99 mg/kSOzud14-32PflglurkfUniversity Hospitals Lake West Medical Center Comment on above:> or =60 mg/dl - LOW CARDIOVASCULAR RISK<40 mg/dl - HIGH CARDIOVASCULAR RISKCO2 [Moles/Vol]32.2 mmol/LHigh21.0-32.0[facility] CenterCobalamin (Vitamin B12) [Mass/Vol]1376 pg/jAXrklpnef403-9000 [facility] CenterComment on above:Performed at: [employer] [facility] [id number] Director: Bobby Mckeon PhD, Phone: [phone] [Mass/Vol]0.89 mg/dL0.55-1.02[facility] CenterFerritin [Mass/Vol]363.0 ng/mLHigh8.0-252.0[facility] CenterGFR/1.73 sq M.predicted MDRD (S/P/Bld) [Vol rate/Area] mL/min/{1.73_m2}>=60 mL/min/1.73m 2FProtestant Deaconess HospitalGlucose [Mass/Vol]85 mg/xB64-484XyboedkrxUniversity Hospitals Lake West Medical CenterIron [Mass/Vol]121.0 ug/dL50.0-170.0[facility] CenterPotassium [Moles/Vol]4.0 mmol/L 3.5-5.1FProtestant Deaconess HospitalProtein [Mass/Vol]6.2 g/dLLow6.4-8.2 Cleveland Clinicodium [Moles/Vol]144 mmol/Z026-664MkoqjqzmdUniversity Hospitals Lake West Medical CenterTriglyceride [Mass/Vol]86 mg/dL<=150[facility] CenterUrea nitrogen [Mass/Vol]31.0 mg/dLHigh7.0-18.0[facility] CenterUrea nitrogen/Creatinine [Mass ratio]34.8 mg/mgUniversity Hospitals Lake West Medical CenterLaboratory - Hematology and Cell countson 74-24-5645PIT (Bld) [Velocity]3 mm/h<=30[facility] CenterImmature granulocytes/100 WBC (Bld)0.0 %0.0-0.5FProtestant Deaconess HospitalLeukocytes [#/volume] corrected for nucleated erythrocytes in Blood by Automated counon 88-47-8851ZOM corrected for nucl RBC Auto (Bld) [#/Vol]Leukocytes [#/volume] corrected for nucleated erythrocytes in Blood by Automated coun4.0-11.0[facility] CenterLymphocytes Auto (Bld) [#/Vol]on 03-88-1166Trowuvjqwzo (Bld) [#/Vol]Lymphocytes [#/volume] in Blood by Automated count1.2-3.8[facility] CenterLymphocytes/100 WBC Auto (Bld)on 09-02-2024 Lymphocytes/100 WBC (Bld)Lymphocytes/100 leukocytes in Blood by Automated count 20.5-60.0[facility] HospitalH Auto (RBC) [Entitic mass]on 67-70-7256UQY (RBC) [Entitic mass]MCH [Entitic mass] by Automated count26.7-34.0 [facility] CenterMCHC Auto (RBC) [Mass/Vol]on 32-52-5999EGKX (RBC) [Mass/Vol]MCHC [Mass/volume] by Automated count29.9-35.2FProtestant Deaconess HospitalMCV Auto (RBC) [Entitic vol]on 87-72-0124CCP (RBC) [Entitic vol] MCV [Entitic volume] by Automated count81.0-99.0[facility] CenterMonocytes Auto (Bld) [#/Vol]on 54-60-9903Xthemkwld (Bld) [#/Vol]Automated blood monocyte count0.3-0.8[facility] CenterMonocytes/100 WBC Auto (Bld)on 73-26-6204Hpftwwkco/100 WBC (Bld)Automated monocyte %1.7-12.0 [facility] CenterNeutrophils Auto (Bld) [#/Vol]on 09-02-2024 Neutrophils (Bld) [#/Vol]Neutrophils [#/volume] in Blood by Automated count 1.4-6.5FProtestant Deaconess HospitalNeutrophils/100 WBC Auto (Bld)on 97-85-4228Jguqufxcacw/100 WBC (Bld)Automated neutrophil %Low43.0-75.0[facility] CenterNo Panel Informationon 15-17-1527Pxtxnevfljk # (Auto)0.2 10 3/uL0.0-0.7FProtestant Deaconess HospitalImmature Granulocyte # (Auto)0.00 10 3/uL0.00-0.03[facility] CenterPlatelet mean volume Auto (Bld) [Entitic vol]on 39-57-8259Kjjkzcwm mean volume (Bld) [Entitic vol]Platelet mean volume [Entitic volume] in Blood by Automated countLow9.5-13.5FProtestant Deaconess HospitalPlatelets Auto (Bld) [#/Vol]on 40-84-7235Vjfilrjdx (Bld) [#/Vol]Platelets [#/volume] in Blood by Automated -699GkaliukxjUniversity Hospitals Lake West Medical CenterRBC Auto (Bld) [#/Vol]on 60-02-1996JIA (Bld) [#/Vol]Erythrocytes [#/volume] in Blood by Automated countLow4.20-5.40Cleveland Clinicerum or plasma albumin/globulin mass ratioon 96-95-9278Psngqyr/Globulin [Mass ratio]Serum or plasma albumin/globulin mass ratioCleveland Clinicerum or plasma anion gap determinationon 86-79-7211Tbirj gap [Moles/Vol]Serum or plasma anion gap determinationCleveland Clinicerum or plasma total cholesterol/high density lipoprotein (HDL) cholesterol mass artie 32-09-8714Fjzoxgdvzsl.total/Cholesterol in HDL [Mass ratio]Serum or plasma total cholesterol/high density lipoprotein (HDL) cholesterol mass ratUniversity Hospitals Lake West Medical CenterComment on above:3.3 - 4.4 LOW RISK4.4 - 7.1 AVERAGE RISK7.1 - 11.0 MODERATE RISK>11.0 HIGH TUFI42ie [phone] daughter contacted office requesting patient lab orders be faxed to [facility]. Faxed orders to number on their website, . Mailed copies of labs to patient as well.NormalParkview HealthLaboratory - Chemistry and Chemistry - challengeon 00-77-9767Tlkoqlkwt Ql (U)NegativeUniversity Hospitals Lake West Medical CenterGlucose (U) [Mass/Vol]Negative [facility] CenterKetones Ql (U)NegativeUniversity Hospitals Lake West Medical CenterpH (U)6.5 [pH]Cleveland Clinicpecific gravity (U) [Rel density]1.000Firelands Regional Medical CenterUrobilinogen (U) [Mass/Vol]0.2 mg/dLUniversity Hospitals Lake West Medical CenterLaboratory - Specimen informationon 58-08-4778Jwmanknwpk (U)cloudyUniversity Hospitals Lake West Medical Center Color (U)lightyellowUniversity Hospitals Lake West Medical CenterLaboratory - Urinalysison 30-07-3548Nwlobvszv esterase Test strip Ql (U)NegativeUniversity Hospitals Lake West Medical CenterNitrite Ql (U)NegativeUniversity Hospitals Lake West Medical CenterProtein Ql (U) NegativeUniversity Hospitals Lake West Medical CenterNo Panel Informationon 07-03-6702Nxhiq Occult BloodNegativeUniversity Hospitals Lake West Medical CenterFollow-Upon 05-05-2024 Follow-[id number] Jose David 1945 F Date Provider Department Center 05/05/2024 Juan F-JT JASSO I AZCF [facility] No family history on file Level of Service:02942 [place] OFFICE/OUTPATIENT ESTABLISHED LOW [facility] 20 MIN Reason for Visit and Comments: Follow-up [643103] - 1 headache a few weeks ago. Increased itching for a few monthsNormalUniversity of Palestine Regional Medical CenterBasophils Auto (Bld) [#/Vol] on 76-54-3138Wlcwodtqw (Bld) [#/Vol]Automated basophil count0.0-0.1FProtestant Deaconess HospitalBasophils/100 WBC Auto (Bld)on 85-41-2149Qqijhcmrq/100 WBC (Bld)Automated basophil %0.2-2.0[facility] CenterCholesterol in LDL Calc [Mass/Vol]on 60-85-5110Fiblnlkdxcf in LDL [Mass/Vol]Cholesterol in LDL [Mass/volume] in Serum or Plasma by calculationUniversity Hospitals Lake West Medical CenterComment on above:<100 mg/dl FQWCVXB205-102 mg/dl NEAR OR ABOVE PDDTHPX157- 159 mg/dl BORDERLINE HXOY550-537 mg/dl HIGH>190 mg/dl VERY HIGHCholesterol in VLDL Calc [Mass/Vol]on 27-67-8300Usfgbdgewqw in VLDL [Mass/Vol]Cholesterol in VLDL [Mass/volume] in Serum or Plasma by calculationUniversity Hospitals Lake West Medical CenterEosinophils/100 WBC Auto (Bld)on 91-09-6022Qkqbuxluhdq/100 WBC (Bld) Automated eosinophil %0.9-7.0[facility] CenterErythrocyte distribution width Auto (RBC) [Ratio]on 60-26-2735Ypdjdfsuxlx distribution width (RBC) [Ratio]Erythrocyte distribution width [Ratio] by Automated count11.0-15.0 [facility] CenterEstimated glomerular filtration rate (GFR) non- Americanon 92-60-0772BNT/1.73 sq M.predicted among non-blacks MDRD (S/P/Bld) [Vol rate/Area]Estimated glomerular filtration rate (GFR) non->=60[facility] CenterGlobulin Calc (S) [Mass/Vol]on 56-74-6610Obrzwsrd (S) [Mass/Vol]Serum globulin measurement by calculation (mass/volume)[facility] CenterHematocrit Auto (Bld) [Volume fraction]on 34-45-5422Fiivteltjd (Bld) [Volume fraction]Hematocrit [Volume Fraction] of Blood by Automated count36.0-48.0[facility] Hemoglobin [Mass/volume] in Bloodon 12-55-4288Tuyawisoot (Bld) [Mass/Vol] Hemoglobin [Mass/volume] in Blood12.0-16.0[facility] Laboratory - Chemistry and Chemistry - challengeon 41-59-0179Yfmpjhn [Mass/Vol] 3.3 g/dLLow3.4-5.0[facility] CenterALP [Catalytic activity/Vol] 49 U/K45-032CzxtwpvgoUniversity Hospitals Lake West Medical CenterALT [Catalytic activity/Vol]29 U/L 14-59[facility] CenterAST [Catalytic activity/Vol]23 U/L15-37 [facility] CenterBilirubin [Mass/Vol]0.5 mg/dL0.2-1.0[facility]als [facility] CenterCalcium [Mass/Vol]9.0 mg/dL8.5-10.1FProtestant Deaconess HospitalChloride [Moles/Vol]105 mmol/U73-778IfongoluoUniversity Hospitals [facility] CenterCholesterol [Mass/Vol]302 mg/dLHigh<=200[facility] Cholesterol in HDL [Mass/Vol]95 mg/aSCycy46-20XtfbzymiqUniversity Hospitals [facility] Comment on above:> or =60 mg/dl - LOW CARDIOVASCULAR RISK<40 mg/dl - HIGH CARDIOVASCULAR RISKCO2 [Moles/Vol]32.1 mmol/LHigh21.0-32.0[facility] CenterCreatinine [Mass/Vol]0.87 mg/dL0.55-1.02[facility] CenterGFR/1.73 sq M.predicted MDRD (S/P/Bld) [Vol rate/Area]mL/min/{1.73_m2} >=60[facility] CenterGlucose [Mass/Vol]85 mg/cZ02-074QziydcphpUniversity Hospitals [facility] CenterPotassium [Moles/Vol]3.8 mmol/L3.5-5.1FProtestant Deaconess HospitalProtein [Mass/Vol]5.9 g/dLLow6.4-8.2FAvita Health Systemodium [Moles/Vol]143 mmol/F919-606UgmhrzzptUniversity Hospitals [facility] Triglyceride [Mass/Vol]87 mg/dL<=150[facility] CenterUrea nitrogen [Mass/Vol]25.0 mg/dLHigh7.0-18.0[facility] CenterUrea nitrogen/Creatinine [Mass ratio]28.7 mg/mgUniversity Hospitals [facility] Laboratory - Hematology and Cell countson 63-24-9588AZD (Bld) [Velocity]4 mm/h <=30[facility] CenterImmature granulocytes/100 WBC (Bld)0.2 % 0.0-0.5FProtestant Deaconess HospitalLeukocytes [#/volume] corrected for nucleated erythrocytes in Blood by Automated counon 28-13-6495TGF corrected for nucl RBC Auto (Bld) [#/Vol]Leukocytes [#/volume] corrected for nucleated erythrocytes in Blood by Automated coun4.0-11.0[facility] Lymphocytes Auto (Bld) [#/Vol]on 94-76-2165Lypdyvehskq (Bld) [#/Vol]Lymphocytes [#/volume] in Blood by Automated count1.2-3.8[facility] Lymphocytes/100 WBC Auto (Bld)on 61-18-8480Bbshcjpndzw/100 WBC (Bld) Lymphocytes/100 leukocytes in Blood by Automated count20.5-60.0[facility] HospitalH Auto (RBC) [Entitic mass]on 37-76-2414RRD (RBC) [Entitic mass]MCH [Entitic mass] by Automated count26.7-34.0[facility] CenterMCHC Auto (RBC) [Mass/Vol]on 30-26-0730CMGZ (RBC) [Mass/Vol]MCHC [Mass/volume] by Automated count29.9-35.2FProtestant Deaconess HospitalMCV Auto (RBC) [Entitic vol]on 16-52-2742CXM (RBC) [Entitic vol]MCV [Entitic volume] by Automated count81.0-99.0[facility] CenterMonocytes Auto (Bld) [#/Vol]on 21-37-4406Wpepgshfb (Bld) [#/Vol]Automated blood monocyte count0.3-0.8 [facility] CenterMonocytes/100 WBC Auto (Bld)on 04-30-2024 Monocytes/100 WBC (Bld)Automated monocyte %1.7-12.0[facility] CenterNeutrophils Auto (Bld) [#/Vol]on 18-68-8962Ieaexeluxhb (Bld) [#/Vol] Neutrophils [#/volume] in Blood by Automated count1.4-6.5FProtestant Deaconess HospitalNeutrophils/100 WBC Auto (Bld)on 48-40-5916Ohnxmcsxtzr/100 WBC (Bld)Automated neutrophil %Low43.0-75.0[facility] CenterNo Panel Informationon 57-32-5918Zovfuwckhwj # (Auto)0.2 10 3/uL0.0-0.7FProtestant Deaconess HospitalImmature Granulocyte # (Auto)0.01 10 3/uL0.00-0.03 [facility] CenterPlatelet mean volume Auto (Bld) [Entitic vol]on 39-79-0458Faqgawpn mean volume (Bld) [Entitic vol]Platelet mean volume [Entitic volume] in Blood by Automated countLow9.5-13.5FProtestant Deaconess Hospital Platelets Auto (Bld) [#/Vol]on 97-63-0465Xdhqanmni (Bld) [#/Vol]Platelets [#/volume] in Blood by Automated oikgm122-569TriyndxcrUniversity Hospitals [facility] RBC Auto (Bld) [#/Vol]on 69-54-0250KBT (Bld) [#/Vol]Erythrocytes [#/volume] in Blood by Automated countLow4.20-5.40Cleveland Clinicerum or plasma albumin/globulin mass ratioon 14-94-9319Dtglsgh/Globulin [Mass ratio] Serum or plasma albumin/globulin mass ratioUniversity Hospitals [facility] Center Serum or plasma anion gap determinationon 37-28-2003Opkww gap [Moles/Vol]Serum or plasma anion gap determinationCleveland Clinicerum or plasma total cholesterol/high density lipoprotein (HDL) cholesterol mass artie 16-51-7859Dlnhditmfab.total/Cholesterol in HDL [Mass ratio]Serum or plasma total cholesterol/high density lipoprotein (HDL) cholesterol mass ratUniversity Hospitals [facility] CenterComment on above:3.3 - 4.4 LOW RISK4.4 - 7.1 AVERAGE RISK7.1 - 11.0 MODERATE RISK>11.0 HIGH RISKBasophils Auto (Bld) [#/Vol]on 36-00-8135Mcfqmvohh (Bld) [#/Vol]0.0 10 3/uL0.0-0.1FProtestant Deaconess HospitalBasophils/100 WBC Auto (Bld)on 78-05-7621Rtsmkbimd/100 WBC (Bld)0.6 % 0.2-2.0[facility] CenterEosinophils/100 WBC Auto (Bld)on 57-60-7475Vsaccxnbyll/100 WBC (Bld)1.7 %0.9-7.0[facility] Erythrocyte distribution width Auto (RBC) [Ratio]on 93-43-7592Ehknmposthp distribution width (RBC) [Ratio]13.7 %11.0-15.0[facility] Hematocrit Auto (Bld) [Volume fraction]on 18-89-6028Igrzuhjhar (Bld) [Volume fraction]37.7 %36.0-48.0[facility] CenterHemoglobin [Mass/volume] in Bloodon 44-68-8077Jqrjcoggeb (Bld) [Mass/Vol]12.2 g/dL12.0-16.0 [facility] CenterIron binding capacity [Mass/volume] in Serum or Plasmaon 64-02-3228Ykkt binding capacity [Mass/Vol]231.0 ug/rTRig724.0-450.0 [facility] CenterIron saturation [Mass Fraction] in Serum or Plasmaon 80-64-3388Yhoe saturation [Mass fraction]44.6 %[facility] CenterLaboratory - Chemistry and Chemistry - challengeon 03-05-2024 Ferritin [Mass/Vol]234.0 ng/mL8.0-252.0[facility] CenterIron [Mass/Vol]103.0 ug/dL50.0-170.0[facility] CenterLaboratory - Hematology and Cell countson 65-02-0238Nsrzkabq granulocytes/100 WBC (Bld)0.3 % 0.0-0.5FProtestant Deaconess HospitalLeukocytes [#/volume] corrected for nucleated erythrocytes in Blood by Automated counon 24-51-5922ZPK corrected for nucl RBC Auto (Bld) [#/Vol]6.9 10 3/uL4.0-11.0[facility] Lymphocytes Auto (Bld) [#/Vol]on 92-70-3236Pxtrdnnttrh (Bld) [#/Vol]3.8 10 3/uL 1.2-3.8[facility] CenterLymphocytes/100 WBC Auto (Bld)on 69-87-8601Gnsfugcpgyx/100 WBC (Bld)54.9 %20.5-60.0[facility] CenterMCH Auto (RBC) [Entitic mass]on 42-53-4178FHM (RBC) [Entitic mass]31.4 pg 26.7-34.0[facility] CenterMCHC Auto (RBC) [Mass/Vol]on 32-71-7847YRTI (RBC) [Mass/Vol]32.4 g/dL29.9-35.2FProtestant Deaconess HospitalMCV Auto (RBC) [Entitic vol]on 85-21-8216NNI (RBC) [Entitic vol]96.9 fL 81.0-99.0[facility] CenterMonocytes Auto (Bld) [#/Vol]on 03-36-8723Qfdvaiwus (Bld) [#/Vol]0.6 10 3/uL0.3-0.8[facility] CenterMonocytes/100 WBC Auto (Bld)on 36-61-0636Boqjrxuyl/100 WBC (Bld)8.7 % 1.7-12.0[facility] CenterNeutrophils Auto (Bld) [#/Vol]on 52-17-7845Dfmtvhjpicb (Bld) [#/Vol]2.3 10 3/uL1.4-6.5FProtestant Deaconess HospitalNeutrophils/100 WBC Auto (Bld)on 79-90-7841Xrpayqcsxng/100 WBC (Bld)33.8 % Low43.0-75.0[facility] CenterNo Panel Informationon 03-05-2024 Eosinophils # (Auto)0.1 10 3/uL0.0-0.7FProtestant Deaconess HospitalImmature Granulocyte # (Auto)0.02 10 3/uL0.00-0.03[facility] Platelet mean volume Auto (Bld) [Entitic vol]on 85-33-0935Fhsslixf mean volume (Bld) [Entitic vol]8.7 fLLow9.5-13.5FProtestant Deaconess HospitalPlatelets Auto (Bld) [#/Vol]on 76-45-8939Xirengelk (Bld) [#/Vol]289 10 3/oT054-290 [facility] CenterRBC Auto (Bld) [#/Vol]on 39-07-0128KQQ (Bld) [#/Vol]3.89 10 6/uLLow4.20-5.40[facility] CenterBasophils Auto (Bld) [#/Vol]on 01-09-5062Xgnxagakm (Bld) [#/Vol]0.0 10 3/uL0.0-0.1FProtestant Deaconess HospitalBasophils/100 WBC Auto (Bld)on 74-18-0202Ozyfgyock/100 WBC (Bld)0.3 %0.2-2.0[facility] CenterEosinophils/100 WBC Auto (Bld)on 40-41-8780Vxusgnaqnrl/100 WBC (Bld)0.6 %0.9-7.0[facility] CenterErythrocyte distribution width Auto (RBC) [Ratio]on 12-29-2023 Erythrocyte distribution width (RBC) [Ratio]14.8 %11.0-15.0[facility] CenterHematocrit Auto (Bld) [Volume fraction]on 12-45-8989Jepuvkwdor (Bld) [Volume fraction]39.8 %36.0-48.0[facility] Hemoglobin [Mass/volume] in Bloodon 71-83-9311Pkpnfdcdbw (Bld) [Mass/Vol]12.6 g/dL12.0-16.0[facility] CenterIron binding capacity [Mass/volume] in Serum or Plasmaon 94-80-9459Dpcr binding capacity [Mass/Vol] 241.0 ug/dL250.0-450.0[facility] CenterIron saturation [Mass Fraction] in Serum or Plasmaon 71-88-1420Nahq saturation [Mass fraction]51.5 % [facility] CenterLaboratory - Chemistry and Chemistry - challengeon 39-30-3317Vegy [Mass/Vol]124.0 ug/dL50.0-170.0[facility] CenterLaboratory - Hematology and Cell countson 14-28-7599KOT (Bld) [Velocity]5 mm/h<=30[facility] CenterImmature granulocytes/100 WBC (Bld)0.8 %0.0-0.5FProtestant Deaconess HospitalLeukocytes [#/volume] corrected for nucleated erythrocytes in Blood by Automated counon 27-34-2981NSX corrected for nucl RBC Auto (Bld) [#/Vol]8.9 10 3/uL4.0-11.0[facility] CenterLymphocytes Auto (Bld) [#/Vol]on 01-71-5769Ssjjxzsorab (Bld) [#/Vol]4.4 10 3/uL1.2-3.8[facility] CenterLymphocytes/100 WBC Auto (Bld)on 90-00-4391Uffwutpczjk/100 WBC (Bld)49.7 %20.5-60.0[facility] HospitalH Auto (RBC) [Entitic mass]on 00-66-9775DFQ (RBC) [Entitic mass]31.0 pg26.7-34.0[facility] CenterMCHC Auto (RBC) [Mass/Vol]on 87-56-0288XGHF (RBC) [Mass/Vol]31.7 g/dL29.9-35.2FProtestant Deaconess HospitalMCV Auto (RBC) [Entitic vol]on 10-23-5419NGX (RBC) [Entitic vol] 98.0 fL81.0-99.0[facility] CenterMonocytes Auto (Bld) [#/Vol]on 80-27-6011Jibjjjvrk (Bld) [#/Vol]0.7 10 3/uL0.3-0.8[facility] CenterMonocytes/100 WBC Auto (Bld)on 39-39-3443Hwrvwxikq/100 WBC (Bld)7.3 % 1.7-12.0[facility] CenterNeutrophils Auto (Bld) [#/Vol]on 98-67-8510Ygclgrzcbcn (Bld) [#/Vol]3.7 10 3/uL1.4-6.5FProtestant Deaconess HospitalNeutrophils/100 WBC Auto (Bld)on 95-73-9234Eksibbbtlys/100 WBC (Bld)41.3 % 43.0-75.0[facility] CenterNo Panel Informationon 12-29-2023 Eosinophils # (Auto)0.1 10 3/uL0.0-0.7FProtestant Deaconess HospitalImmature Granulocyte # (Auto)0.07 10 3/uL0.00-0.03[facility] Platelet mean volume Auto (Bld) [Entitic vol]on 30-53-5833Uqzfbqaz mean volume (Bld) [Entitic vol]8.3 fL9.5-13.5FProtestant Deaconess HospitalPlatelets Auto (Bld) [#/Vol]on 87-74-5349Zyizmhkhz (Bld) [#/Vol]262 10 3/lX738-136UaluonqqbUniversity Hospitals [facility] Medical CenterRBC Auto (Bld) [#/Vol]on 52-56-7955HWL (Bld) [#/Vol]4.06 10 6/uL4.20-5.40[facility] CenterBasophils Auto (Bld) [#/Vol]on 59-14-5939Whqafatck (Bld) [#/Vol]0.0 10 3/uL0.0-0.1FProtestant Deaconess HospitalBasophils/100 WBC Auto (Bld)on 90-47-1616Fqxcvrzaa/100 WBC (Bld)0.2 % 0.2-2.0[facility] CenterBlessentia health Mycobacterium tuberculosis tuberculin stimulated gamma interferon detectionon 10-30-2023M. tuberculosis tuberculin stim IFN-g Ql (Bld)Comment.[facility] CenterComment on above:QuantiFERON-TB Gold Plus is a qualitative indirect test forM tuberculosis infection (including disease) and isintended for use in conjunction with risk assessment,radiography, and other medical and diagnostic evaluations.The QuantiFERON-TB Gold Plus result is determined bysubtracting the Nil value from either TB antigen (Ag)value. The Mitogen tube serves as a control for the test.M. tuberculosis tuberculin stim IFN-g Ql (Bld)0.03 [IU]/mL. [facility] CenterBlessentia health mitogen stimulated gamma interferon measurement (units/volume)on 53-75-9425Dvhqwnf stimulated gamma interferon Qn (Bld)>10.00 [IU]/mL.[facility] CenterCholesterol in LDL Calc [Mass/Vol]on 81-01-4296Kaisttmkbjs in LDL [Mass/Vol]161.0 mg/dLUniversity Hospitals [facility] Medical CenterComment on above:<100 mg/dl MCPASOD255-293 mg/dl NEAR OR ABOVE YWTUKSK731-528 mg/dl BORDERLINE SXSA006-266 mg/dl HIGH>190 mg/dl VERY HIGH Cholesterol in VLDL Calc [Mass/Vol]on 53-06-9776Fhvghntquoi in VLDL [Mass/Vol] 12.4 mg/dLUniversity Hospitals [facility] Medical CenterEosinophils/100 WBC Auto (Bld)on 51-85-6618Xseyrsnzivv/100 WBC (Bld)0.4 %0.9-7.0[facility] Erythrocyte distribution width Auto (RBC) [Ratio]on 30-66-0420Npjdwehdklo distribution width (RBC) [Ratio]19.2 %11.0-15.0[facility] Estimated glomerular filtration rate (GFR) non- Americanon 10-30-2023 GFR/1.73 sq M.predicted among non-blacks MDRD (S/P/Bld) [Vol rate/Area] mL/min/{1.73_m2}>=60[facility] CenterGlobulin Calc (S) [Mass/Vol]on 89-53-5279Gexyrvxh (S) [Mass/Vol]3.4 g/dLUniversity Hospitals Lake West Medical CenterHematocrit Auto (Bld) [Volume fraction]on 46-01-3197Encogtqcqn (Bld) [Volume fraction]34.9 %36.0-48.0[facility] CenterHemoglobin [Mass/volume] in Bloodon 78-41-3969Tioktrxfoz (Bld) [Mass/Vol]10.8 g/dL12.0-16.0 [facility] CenterHepatitis C virus IgG Ab [Presence] in Serum or Plasma by Immunoassayon 75-26-5250DFF IgG IA QlNon-ReactiveNon Reactive [facility] CenterComment on above:HCV antibody alone does not differentiate betweenpreviously resolved infection and active infection. Equivocal and Reactive HCV antibody results should befollowed up with an HCV RNA test to support the diagnosisof active HCV infection.Laboratory - Chemistry and Chemistry - challengeon 29-73-2192Ogsxwzv [Mass/Vol]2.9 g/dL3.4-5.0[facility] CenterALP [Catalytic activity/Vol]60 U/B16-944RamblshqvUniversity Hospitals [facility] CenterALT [Catalytic activity/Vol]24 U/L28-98RqhasbqclUniversity Hospitals [facility] CenterAST [Catalytic activity/Vol]10 U/X98-12Kgpsraspj Regional Medical CenterBilirubin [Mass/Vol]0.4 mg/dL0.2-1.0[facility] Calcium [Mass/Vol]8.3 mg/dL8.5-10.1FProtestant Deaconess HospitalChloride [Moles/Vol]102 mmol/B70-184MtspcikqvUniversity Hospitals [facility] CenterCholesterol [Mass/Vol]308 mg/dL<=200[facility] CenterCholesterol in HDL [Mass/Vol]135 mg/hN22-89WqqejinyfUniversity Hospitals [facility] CenterComment on above:> or =60 mg/dl - LOW CARDIOVASCULAR RISK<40 mg/dl - HIGH CARDIOVASCULAR RISKCO2 [Moles/Vol]30.3 mmol/L21.0-32.0[facility] CenterCreatinine [Mass/Vol]0.78 mg/dL0.55-1.02[facility] CenterGFR/1.73 sq M.predicted MDRD (S/P/Bld) [Vol rate/Area]mL/min/{1.73_m2}>=60[facility] CenterGlucose [Mass/Vol]71 mg/cF57-424SlbfwpuoyUniversity Hospitals [facility] Potassium [Moles/Vol]4.1 mmol/L3.5-5.1FProtestant Deaconess HospitalProtein [Mass/Vol]6.3 g/dL6.4-8.2FAvita Health Systemodium [Moles/Vol]140 mmol/C475-165WiowhjxilUniversity Hospitals [facility] Medical CenterTriglyceride [Mass/Vol]62 mg/dL <=150[facility] CenterUrea nitrogen [Mass/Vol]23.0 mg/dL7.0-18.0 [facility] CenterUrea nitrogen/Creatinine [Mass ratio]29.5 mg/mg [facility] CenterLaboratory - Hematology and Cell countson 88-45-3114IEU (Bld) [Velocity]21 mm/h<=30[facility] Immature granulocytes/100 WBC (Bld)1.8 %0.0-0.5FProtestant Deaconess Hospital Leukocytes [#/volume] corrected for nucleated erythrocytes in Blood by Automated counon 17-82-8089WGW corrected for nucl RBC Auto (Bld) [#/Vol]11.4 10 3/uL 4.0-11.0[facility] CenterLymphocytes Auto (Bld) [#/Vol]on 82-43-0964Oxrbcegnqls (Bld) [#/Vol]3.9 10 3/uL1.2-3.8[facility] CenterLymphocytes/100 WBC Auto (Bld)on 64-16-8423Fjutguqnoxy/100 WBC (Bld)34.2 % 20.5-60.0[facility] CenterMCH Auto (RBC) [Entitic mass]on 58-29-3586QKD (RBC) [Entitic mass]29.4 pg26.7-34.0[facility] CenterMCHC Auto (RBC) [Mass/Vol]on 21-38-4034FDOE (RBC) [Mass/Vol]30.9 g/dL 29.9-35.2FProtestant Deaconess HospitalMCV Auto (RBC) [Entitic vol]on 39-13-3803QCG (RBC) [Entitic vol]95.1 fL81.0-99.0[facility] CenterMonocytes Auto (Bld) [#/Vol]on 41-33-6530Ktiyimifs (Bld) [#/Vol]0.8 10 3/uL0.3-0.8[facility] CenterMonocytes/100 WBC Auto (Bld)on 21-86-5689Ztqdoxwco/100 WBC (Bld)7.3 %1.7-12.0[facility] Mycobacterium tuberculosis stimulated gamma interferon [Interpretation] in Blood Qualon 10-30-2023M. tuberculosis stim IFN-g Ql (Bld) [Interp]NegativeNegative [facility] CenterComment on above:No response to M tuberculosis antigens detected.Infection with M tuberculosis is unlikely, but high riskindividuals should be considered for additional testing(ATS/IDSA/CDC Clinical Practice Guidelines, 2017). Thereference range is an Antigen minus Nil result of <0.35IU/mL.Chemiluminescence immunoassay methodologyPerformed at: [employer] [id number] Director: Bobby Mckeon PhD, Phone: [phone] Auto (Bld) [#/Vol]on 10-30-2023 Neutrophils (Bld) [#/Vol]6.4 10 3/uL1.4-6.5FProtestant Deaconess Hospital Neutrophils/100 WBC Auto (Bld)on 24-32-0664Cvdtfzhnpln/100 WBC (Bld)56.1 % 43.0-75.0[facility] CenterNo Panel Informationon 10-30-2023 Eosinophils # (Auto)0.0 10 3/uL0.0-0.7FProtestant Deaconess HospitalHepatitis B Core Total AntibodyNegativeNegativeUniversity Hospitals [facility] CenterComment on above:Performed at: [employer] [id number] Director: Bobby Mckeon PhD, Phone: [phone] Granulocyte # (Auto)0.20 10 3/uL0.00-0.03[facility] Miscellaneous TestCOMMENT.[facility] CenterComment on above:Test Ordered: [id number] Hep Be AgHep Be Ag Negative CB Reference Range: NegativePerformed at: [employer] [id number] Director: Bobby Mckeon PhD, Phone: [phone] Test (QFT) IncubationSee comment.[facility] CenterComment on above: Incubation performed. Reference Range: .Platelet mean volume Auto (Bld) [Entitic vol]on 42-62-5188Oqsjwalx mean volume (Bld) [Entitic vol]8.2 fL9.5-13.5 [facility] CenterPlatelets Auto (Bld) [#/Vol]on 10-30-2023 Platelets (Bld) [#/Vol]287 10 3/hY568-942StgfzkiiuUniversity Hospitals [facility] Medical CenterRBC Auto (Bld) [#/Vol]on 87-90-7667ZES (Bld) [#/Vol]3.67 10 6/uL4.20-5.40Cleveland Clinicerum or plasma albumin/globulin mass ratioon 10-30-2023 Albumin/Globulin [Mass ratio]0.9 {ratio}C[facility] Clinicerum or plasma anion gap determinationon 18-39-3088Lmfmj gap [Moles/Vol]11.8 mmol/L [facility] Clinicerum or plasma total cholesterol/high density lipoprotein (HDL) cholesterol mass artie 01-33-0455Ljykuovcwro.total/Cholesterol in HDL [Mass ratio]2.3 {ratio}[facility] CenterComment on above:3.3 - 4.4 LOW RISK4.4 - 7.1 AVERAGE RISK7.1 - 11.0 MODERATE RISK>11.0 HIGH RISKWhole blood measurement of Mycobacterium tuberculosis stimulated gamma interferon relon 10-30-2023M. tuberculosis stim IFN-g by CD4+ CD8+ T-cells corrected for background Qn (Bld)0.03 [IU]/mL.[facility] BASIC METABOLIC PANLon 30-23-5369Ldwse gap [Moles/Vol]8 mmol/LNormal5-15 ProMSalem Regional Medical CenterComment on above:Performed By: #### CBCA, CMP, 1987-12, FEPR, 2276-4, 2284-8, 82009-8, 2131-9, 24168-0, 43700-8, 5130-0, 31974-0, 91233- 6, 63632-4, 3357-1, 8092-9, 41015-6, 96223-8, 73960-7, 97916-4, 01425-1 #### [facility] ([id number]) [address] [place] [address], [address] [place], [place] [address]Fvlqxun [Mass/Vol]7.9 mg/dLLow8.5-10.5PWooster Community Hospital Comment on above:Performed By: #### CBCA, CMP, 1987-12, FEPR, 2276-4, 2284-8, 34434-2, 2132-9, 66517-1, 60966-5, 5130-0, 18073-9, 19978-8, 05585-6, 3357-1, 8092-9, 59487-2, 59721-6, 10032-3, 98394-0, 63661-5 #### [facility] ([id number]) [address] [facility] [facility], [address] [place], [place] [address]Jbcaklpo [Moles/Vol]103 mmol/HEihtpy11-506AikIjkmozMedina HospitalComment on above:Performed By: #### KELVIN RODRIGUEZ, 1986-12, FEPR, 2276-4, 2284-8, 80186-3, 2132-9, 20156-7, 74257-3, 5130-0, 48427-9, 98622-7, 34151-3, 3357-1, 8092-9, 58469-0, 53711-6, 25746-5, 37721-3, 30479-3 #### [facility] ([id number]) [address] [place] [address], [address] [place], [place] [address]NC4 [Moles/Vol]30 mmol/OAhsqbj14-42WoeDkwvbeWooster Community Hospital Comment on above:Performed By: #### KELVIN RODRIGUEZ, 1986-12, FEPR, 2275-4, 2284-8, 63521-3, 2132-9, 04781-0, 36423-3, 5130-0, 92803-7, 93511-0, 67389-2, 3357-1, 8092-9, 63715-5, 62212-3, 66702-8, 95185-0, 11275-1 #### [facility] ([id number]) [address] [facility] [facility], [address] [place], [place] [address]Jmvxnyoxto [Mass/Vol]0.65 mg/dLNormal0.40-1.00Medina HospitalComment on above:Result Comment: METHOD TRACEABLE TO IDMS STANDARD Performed By: #### KELVIN RODRIGUEZ, 1986-12, FEPR, 227-4, 2284-8, 39200-9, 2132-9, 59358-2, 49724-1, 5130-0, 73875-8, 04246-1, 49278-4, 3357-1, 8092-9, 87542-7, 79725-9, 19515-2, 54189-7, 42493-7 #### [facility] ([id number]) [address], [address] [place], [place] [address]xXOD (CKD-EPI) NON-RACE DEPENDENT>90Normal>59ProMercy Memorial HospitalComment on above:Result Comment: Reported eGFR is based on the CKD-EPI 2020 equation that does not use a race coefficient.Performed By: #### KELVIN RODRIGUEZ, 1986-12, FEPR, 2275-4, 2283-8, 76129-8, 2131-9, 10253-5, 69648-4, 5130-0, 45603-0, 80241-3, 58866-4, 3357-1, 8092-9, 88667-9, 10865-0, 56014-9, 18459-0, 25931-3 #### [facility] ([id number]) [address], [address] [place], [place] [address]Tvkablg [Mass/Vol]79 mg/tEHlseqg08-05AcpUvcdyq [facility] Comment on above:Performed By: #### KELVIN RODRIGUEZ, 1986-12, FEPR, 2275-4, 4-8, 45552-4, 2131-9, 70467-1, 63759-8, 5130-0, 29504-6, 32143-9, 49868-6, 3357-1, 8092-9, 17846-6, 72925-0, 21539-5, 27590-6, 98703-3 #### [facility] ([id number]) [address], [address] [place], [place] [address]Tqvlddihe [Moles/Vol]3.9 mmol/LNormal3.5-5.0ProMercy Memorial HospitalComment on above:Performed By: #### KELVIN RODRIGUEZ, 1986-12, FEPR, 6-4, 2284-8, 72523-4, 2132-9, 43558-6, 74856-4, 5130-0, 98165-5, 16739-9, 52456-4, 3357-1, 8092-9, 98991-2, 38978-1, 67538-5, 52743-3, 80290-7 #### [facility] ([id number]) [address], [address] [place], [place] [address]Popoos [Moles/Vol]141 mmol/GSxwvbt072-296IbaLqrsaq [facility] HospitalComment on above:Performed By: #### MICHAEL, CMP, 1986-12, FEPR, 2276-4, 2284-8, 83260-4, 2132-9, 69779-7, 29079-8, 5130-0, 20521-8, 10727-7, 30998-2, 3357-1, 8092-9, 62362-1, 31661-4, 39813-5, 76096-0, 23545-5 #### [facility] ([id number]) [address] [facility], [address] [place], [place] [address]Xyln nitrogen [Mass/Vol]26 mg/dLNormal5-27ProMercy Memorial HospitalComment on above:Performed By: #### MICHAEL, CMP, 1986-12, FEPR, 2276-4, 2284-8, 06835-7, 2132-9, 10424-0, 12698-0, 5130-0, 47438-2, 94658-9, 06586-0, 3357-1, 8092-9, 55105-0, 75032-0, 66318-6, 56983-0, 55339-2 #### [facility] [facility] ([id number]) [address] [facility] [facility], [address] [place], [place] [address]Vlbzr Metabolic Panelon 46-78-6362Kxwgp gap [Moles/Vol]8 mmol/L5 - 15 mmol/LProMedica Health SystemCalcium [Mass/Vol]7.9 mg/dLLow8.5 - 10.5 mg/dLProMedica Health SystemChloride [Moles/Vol]103 mmol/L98 - 109 mmol/L [facility] SystemCO2 [Moles/Vol]30 mmol/L22 - 32 mmol/[facility] SystemCreatinine [Mass/Vol]0.65 mg/dL0.40 - 1.00 mg/dLSt. Rita's Hospital Comment on above:METHOD TRACEABLE TO IDMS STANDARDeGFR (CKD-EPI)non-race dependent- PINSaint John's Regional Health CenterComment on above: Reported eGFR is based on the CKD-EPI 2020 equation that does not use a race coefficient. Glucose [Mass/Vol]79 mg/dL65 - 99 mg/dLSt. Rita's HospitalInterpretation and review of laboratory resultsAbnormalSt. Rita's HospitalPotassium [Moles/Vol]3.9 mmol/L3.5 - 5.0 mmol/[facility] SystemSodium [Moles/Vol] 141 mmol/L134 - 146 mmol/[facility] SystemUrea nitrogen [Mass/Vol]26 mg/dL5 - 27 mg/dLAllegheny Valley HospitalCBC AND AUTO DIFF on 45-94-1737DLAOOSPQ BASOPHIL0.1 X10E9/LNormal0.0-0.2PWooster Community Hospital Comment on above:Performed By: #### KELVIN RODRIGUEZ, 1986-12, FEPR, 2275-4, 2283-8, 47354-3, 2131-9, 08217-6, 56433-4, 5130-0, 26898-9, 20536-6, 17565-5, 3357-1, 8092-9, 32563-5, 86963-2, 92061-9, 91030-8, 12550-8 #### [facility] ([id number]) [address] [facility] [facility], [address] [place], [place] [address]CIFJNFSR NEUTROPHIL7.1 X10E9/LHigh1.5-6.6Medina HospitalComment on above:Performed By: #### KELVIN RODRIGUEZ, 1986-12, FEPR, 2276-4, 2284-8, 06736-6, 2131-9, 99422-0, 39082-6, 5130-0, 30158-5, 73104-6, 85101-4, 3357-1, 8092-9, 96042-1, 65338-8, 84254-8, 19052-6, 14594-9 #### [facility] ([id number]) [address] [facility] [facility], [address] [place] [address]Epiztmvij/100 WBC (Bld)0.8 %[facility] Comment on above:Performed By: #### CBCA, CMP, 1987-12, FEPR, 227-4, 2284-8, 60221-5, 2132-9, 82625-0, 92500-0, 5130-0, 10068-1, 64099-9, 12761-6, 3357-1, 8092-9, 62028-7, 67486-0, 50928-5, 53132-2, 62529-3 #### [facility] ([id number]) [address] [place] [address], [address] [place] [address]Avlkgeytjmy (Bld) [#/Vol]0.0 10*3/uLNormal0.0-0.4Medina HospitalComment on above:Performed By: #### CBCA, CMP, 1987-12, FEPR, 6-4, 2284-8, 96394-6, 2132-9, 55298-6, 88875-7, 5130-0, 25900-4, 89513-5, 85741-0, 3357-1, 8092-9, 27193-9, 71499-8, 77271-5, 14863-7, 47507-9 #### [facility] ([id number]) [address] [place] [address], [address] [place] [address]Wegzhvodbsu/100 WBC (Bld)0.0 %[facility] Comment on above:Performed By: #### CBCA, CMP, 1987-12, FEPR, 2275-4, 2284-8, 65029-4, 2132-9, 02641-8, 39702-4, 5130-0, 81080-8, 55550-2, 75855-7, 3357-1, 8092-9, 58580-5, 40476-2, 35759-6, 80194-4, 42774-7 #### [facility] ([id number]) [address] [facility] [facility], [address] [place], [place] [address]Tjcjblbltiq distribution width (RBC) [Ratio]14.4 %Normal 11.5-15.0Medina HospitalComment on above:Performed By: #### CBCMarisol, CMP, 1987-12, FEPR, 6-4, 2284-8, 59368-3, 2132-9, 67598-9, 94342-9, 5130-0, 30226- 7, 34323-7, 27086-6, 3357-1, 8092-9, 69580-0, 95878-4, 68267-3, 74143-4, 47661-3 #### [facility] ([id number]) [address] [facility], [address] [place], [place] [address]Cajoigkrgl (Bld) [Volume fraction]24.8 %Lvd37-63ZxfKsqjlnMercy Memorial HospitalComment on above:Performed By: #### CBCMarisol, CMP, 1987-12, FEPR, 6-4, 2284-8, 02833-1, 2132-9, 24631-5, 36464-6, 5130-0, 74039-2, 73608-4, 45642-7, 3357-1, 8092-9, 78034-5, 89849-2, 23626-4, 30055-9, 84146-5 #### [facility] ([id number]) [facility] [facility], [address] [place], [place] [address]Emnsjrpiri (Bld) [Mass/Vol]8.2 g/dLLow11.7-15.5PWooster Community HospitalComment on above:Performed By: #### CBCA, CMP, 1987-12, FEPR, 2276-4, 2284-8, 16579-8, 2132-9, 67927-3, 15677-4, 5130-0, 66551-2, 27874-4, 61286-9, 3357-1, 8092-9, 36069-3, 88871-4, 06371-9, 52056-3, 76075-2 #### [facility] ([id number]) [address] [facility], [address] [place], [place] [address]Xvxiskfihki (Bld) [#/Vol]2.4 10*3/uLNormal1.0-3.5PWooster Community HospitalComment on above:Performed By: #### CBCA, CMP, 1987-12, FEPR, 2276-4, 2284-8, 54520-5, 2132-9, 66720-4, 87870-3, 5130-0, 33167-7, 96967-4, 91188-6, 3357-1, 8092-9, 44263-7, 18910-0, 22837-4, 42342-9, 11521-5 #### [facility] ([id number]) [address] [facility], [address] [place], [place] [address]Ebfjdaendrd/100 WBC (Bld)22.6 %NormalMedina Hospital Comment on above:Performed By: #### CBCA, CMP, 1987-12, FEPR, 2276-4, 2284-8, 89380-6, 2132-9, 73917-3, 98138-2, 5130-0, 22300-9, 03586-0, 45165-8, 3357-1, 8092-9, 76677-7, 47251-2, 35718-8, 41782-4, 79202-1 #### [facility] ([id number]) [address] [facility], [address] [place], [place] [address]PFT (RBC) [Entitic mass]28.5 khVcjkao85-89WmhIbojhx [facility]edo HospitalComment on above:Performed By: #### CBCA, CMP, 1987-, FEPR, 2276-4, 2284-8, 20166-7, 2132-9, 83970-1, 89633-2, 5130-0, 61257-7, 52240-1, 50269-7, 3357-1, 8092-9, 36447-6, 19799-3, 14335-5, 85480-3, 36448-0 #### [facility] ([id number]) [address], [address] [place], [place] [address]WIOI (RBC) [Mass/Vol]33.1 g/pXZpldpw68-96VctYgfxii [facility] HospitalComment on above:Performed By: #### MICHAEL, CMP, 1987-12, FEPR, 2276-4, 2284-8, 89132-1, 2132-9, 37045-3, 02388-3, 5130-0, 76935-1, 51702-7, 20384-8, 3357-1, 8092-9, 65362-1, 14338-3, 53899-5, 27432-8, 45135-0 #### [facility] ([id number]) [address], [address] [place], [place] [address]LOH (RBC) [Entitic vol]86 xGNgvvqb21-680YyuXvdggh [facility] HospitalComment on above:Performed By: #### CBCA, CMP, 1987-12, FEPR, 2276-4, 2284-8, 81981-4, 2132-9, 14017-0, 58030-2, 5130-0, 81918-5, 90670-6, 37009-2, 3357-1, 8092-9, 42877-0, 58174-4, 37371-7, 84457-7, 38401-8 #### [facility] ([id number]) [address] [facility] [facility], [address] [place], [place] [address]Kewzcxnqh (Bld) [#/Vol]1.0 10*3/uLHigh0-0.9Medina HospitalComment on above:Performed By: #### CBCA, CMP, 1987-12, FEPR, 2276-4, 2284-8, 50143-0, 2132-9, 11568-2, 00488-5, 5130-0, 02880-8, 03593-3, 05619-1, 3357-1, 8092-9, 61785-8, 39271-2, 77564-3, 10164-0, 16634-7 #### [facility] ([id number]) [facility], [address] [place], [place] [address]Evasstjlq/100 WBC (Bld)9.0 %NormalMedina Hospital Comment on above:Performed By: #### CBCA, CMP, 1987-12, FEPR, 227-4, 2284-8, 25672-5, 2132-9, 90895-7, 38858-3, 5130-0, 30055-2, 84588-0, 83795-3, 3357-1, 8092-9, 03961-1, 60340-8, 26075-5, 69746-9, 64473-6 #### [facility] ([id number]) [address] [place] [address], [address] [place], [place] [address]Ofnkjueipal/100 WBC (Bld)67.6 %[facility] Comment on above:Performed By: #### CBCA, CMP, 1987-12, FEPR, 2276-4, 2284-8, 44208-2, 2132-9, 30045-2, 85890-1, 5130-0, 91468-2, 31310-9, 13694-9, 3357-1, 8092-9, 75869-5, 22362-7, 76848-2, 12954-1, 34019-6 #### [facility] ([id number]) [address] [place] [address], [address] [place], [place] [address]Dtrplvoy mean volume (Bld) [Entitic vol]6.4 fLLow7-12PWooster Community HospitalComment on above:Performed By: #### KELVIN RODRIGUEZ, 1986-12, FEPR, 2276-4, 2284-8, 40277-1, 2132-9, 70938-8, 19104-5, 5130-0, 40909-1, 04346-4, 69502-8, 3357-1, 8092-9, 87100-6, 08497-6, 65666-1, 09257-4, 54558-6 #### [facility] ([id number]) [address] [facility], [address] [place], [place] [address]Vsjrknifs (Bld) [#/Vol]686 10*3/cHHihz633-820FqfYulbyc [facility] HospitalComment on above:Performed By: #### KELVIN RODRIGUEZ, 1986-12, FEPR, 2275-4, 2284-8, 55097-1, 2132-9, 84528-9, 64818-6, 5130-0, 16081-9, 30144-3, 69932-8, 3357-1, 8092-9, 10752-9, 00774-6, 50051-0, 09358-9, 77940-1 #### [facility] ([id number]) [address] [facility], [address] [place], [place] [address]XQB COUNT2.88 X10E12/LLow3.80-5.20[facility] Comment on above:Performed By: #### MICHAEL, KELVIN, 1986-12, FEPR, 227-4, 2284-8, 72724-6, 2132-9, 93828-1, 29712-8, 5130-0, 47657-3, 86462-8, 93276-6, 3357-1, 8092-9, 23627-2, 50096-0, 21260-1, 85385-2, 73741-0 #### [facility] ([id number]) [address] [place] [address], [address] [place], [place] [address]SIR (Bld) [#/Vol]10.5 10*3/uLNormal4.0-11.0Medina HospitalComment on above:Performed By: #### CBCA, CMP, 1988-5, FEPR, 2276-4, 2284-8, 03879-1, 2132-9, 10490-5, 43964-0, 5130-0, 14036-3, 02489-7, 16694-9, 3357-1, 8092-9, 78206-5, 14730-8, 13746-6, 13069-2, 22866-2 #### [facility] ([id number]) [address] [place] [address], [address] [place], [place] [address]KMD auto differentialon 30-99-2035Xwwqghhoq (Bld) [#/Vol]0.1 10*3/uLFulton County Health Center SystemBasophils/100 WBC (Bld)0.8 %St. Rita's HospitalEosinophils (Bld) [#/Vol]0.0 10*3/uLFulton County Health Center SystemEosinophils/100 WBC (Bld)0.0 %St. Rita's HospitalErythrocyte distribution width (RBC) [Ratio]14.4 %11.5 - 15.0 %St[facility] Rita's HospitalHematocrit (Bld) [Volume fraction]24.8 %Low35 - 47 %[facility] SystemHemoglobin (Bld) [Mass/Vol]8.2 g/dLLow11.7 - 15.5 g/dLSt. Rita's HospitalInterpretation and review of laboratory resultsAbnormalSt. Rita's HospitalLymphocytes (Bld) [#/Vol]2.4 10*3/uLSt. Rita's HospitalLymphocytes/100 WBC (Bld)22.6 %[facility]'s HospitalMCH (RBC) [Entitic mass]28.5 pg27 - 34 [facility] CenterMCHC (RBC) [Mass/Vol]33.1 g/dL32 - 36 g/dLSt. Rita's HospitalMCV (RBC) [Entitic vol]86 fL80 - 100 [facility] HospitalMonocytes (Bld) [#/Vol]1.0 10*3/uLHigh St. Rita's HospitalMonocytes/100 WBC (Bld)9.0 %[facility] Neutrophils (Bld) [#/Vol]7.1 10*3/uLHighSt. Rita's HospitalNeutrophils/100 WBC (Bld)67.6 %[facility]'s HospitalPlatelet mean volume (Bld) [Entitic vol] 6.4 fLLow7 - 12 [facility] HospitalPlatelets (Bld) [#/Vol]686 10*3/uLHigh St. Rita's HospitalRBC (Bld) [#/Vol]2.88 10*6/uLLowSt. Rita's Hospital WBC corrected for nucl RBC Auto (Bld) [#/Vol]10.5PTyler Memorial HospitalClinical Pathology Blood Smear Review Clinicalon 01-76-3976Xztlkfqojqg review Pathologist comment (Bld) [Interp]NOTESt. Rita's HospitalComment on above: [facility] [address] [place] [address] Clinical Pathology Report Patient Name:JOSE DAVID:1945 (Age: 78)Gender:FTaken:4Reported:4Physician(s):Tono Pan M.D. ([phone])Copy To: Rec. #:[id number]: #[id number] Final Pathologic Diagnosis Peripheral blood smear: Neutrophilic [...] Out 09/26/2023Og Martinez M.D. Interpretation performed at [facility], [address] [place] [address], License number: [id number]. Clinical History R29.9. BLOOD SMEAR EVALUATION CBC (09/23/2023 0818): WBC = 12.1 X10E9/L; HGB = 9.1 g/dL; HCT = 27.8%; MCV = 85 fL; PLT = 924 X10E9/L OTHER LAB DATA: Noncontributory. BLOOD SMEAR: Leukocytes: Neutrophilic leukocytosis with cytotoxic changes and lymphocytopenia. Erythrocytes: Moderate normocytic normochromic anemia. Platelets: Thrombocytosis. Specimen(s) Received Blood Smear Review Fee Codes(s): 1; 69178 JAK2 V617F mutationon 57-74-2770YXD9 gene p.Jyj013Yku Mol[employer] Ql (Bld/Tiss)SEE COMMENTS 09/26/2023 10:21 Fyreball SystemComment on above:NOTE Test Result Flag Unit RefValue JAK2 V617F Mutation Detection, B JAK2 Result see interpretation JAK2 V617F Mutation Detection, B See Note Peripheral blood, JAK2 V617F mutation analysis: Negative for JAK2 V617F. A negative IXA3D619P test result does not exclude the possibility [...] assay has been determined at 0.06% (see [facility] Interpretive Handbook for method details). This test was developed and its performance characteristics determined by [facility] in a manner consistent with CLIA requirements. This test has not been cleared or approved by the U.S. Food and Drug Administration. Test Performed by: [place] [address] Emergency Room Physician: Thierry Duran M.D. Ph.D.; CLIA# [id number] JAK2 gene p.Vpp624Rad [employer] Ql (Bld/Tiss)on 63-15-8694GraHbubinGreen Cross Hospital Pathologist review Pathologist comment (Bld) [Interp]on 40-31-9959RfzXekybjOur Community Hospitalurgical Pathologyon 09-26-2023 [facility]Case[facility] [address] [place] [address] Surgical Pathology Consultation Patient Name:JOSE DAVID:1945 (Age: 78)Gender:FTaken:4Reported:09/26/2023hysician(s):Kristel Reid MD ([phone])Copy To: Rec. #:[id number]: #[id number] Final Pathologic Diagnosis 1. Left temporal artery [...] small caliber artery which shows transmural moderately densechronic fibroinflammatory reaction with histiocytes, lymphocytes and focal eosinophils. Occasional multinucleated foreign body giant cells are also noted. There is intimal hyperplasia and subtotal luminal obliteration. The elastic lamina is fragmented. 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 Clinical pathologic correlation is suggested. Report Electronically Signed Out [facility]/09/26/2023José Luis Pederson MD Interpretation performed at [facility], [address] , [place] [address], License number: [id number]. Clinical History Temporal arteries. Gross Description 1. Received in formalin labeled [place], left temporal artery biopsy is a segment of vasculature, 2 x 0.3 cm. The specimen is sectioned to reveal a pinpoint lumen. Are 3 segments of vasculature ranging from 0.5 cm to 1.2 cm in length by 0.2 cm in diameter. The specimen is submitted entirely in a single cassette. (1,ns,J85-8626-7, m1) . 2. Received in formalin labeled [place], right temporal artery biopsy are 3 segments of vasculature ranging from 0.5 cm to 1.2 cm in length by 0.2 cm in diameter. The segments are sectioned to reveal pinpoint lumens. The specimen are submitted entirely in cassettes A-B. (2,ns,W21-6959-1, m1) . 4RG Specimen(s) Received 1: Left temporal artery biopsy 2: Right temporal artery biopsy Fee Codes(s): 1; 02451, 20815 2; 53232, 61648 [facility] CenterB[facility]/ABL by PCR w/ Reflexon 02-84-0932Hhhcfwdns diagnostic report Martha Tidwell (Bld/Tiss) [Interp]SEE COMMENTS 09/25/2023 04:24 PM [facility] SystemComment on above:NOTE Test Result Flag Unit RefValue BCR/ABL1 Reflex, Qual/Quant Specimen Type EDTA WHOLE BLOOD BCR/ABL1 Reflex Result see interpretation Interpretation See Note Peripheral blood, BCR/ABL1 mRNA analysis, qualitative: Negative. No BCR/ABL1 mRNA transcripts were detected. Method summary: The presence or absence of BCR/ABL1 mRNA transcripts was evaluated using a qualitative, reverse apartment maintenance PCR-based assay. The assay detects nearly all published and theoretical BCR/ABL1 fusion forms including the common e13/e14-a2 (p210) and e1-a2 (p190) transcripts, as well as other rarer variants (e.g. e19-a2 (p230), e13/e14-a3, e1-a3, etc.). The limit of detection for this assay is 0.1%. Please contact the lab at [phone] with questions or if additional testing is required. See [facility] [employer] Test Catalog for additional method details. Signing Pathologist: Ammon Titus M.D. (Jane), Ph.D. ADDITIONAL INFORMATION This test was developed and its performance characteristics determined by [facility] in a manner consistent with CLIA requirements. This test has not been cleared or approved by the U.S. Food and Drug Administration. Test Performed by: [place] [address] Emergency Room Physician: Thierry Duran M.D. Ph.D.; CLIA# [id number] Narrative diagnostic report Molgen Yaw (Bld/Tiss) [Interp]on 13-62-1969QkyAxzgdeOur Community Hospitalurgical Pathologyon 30-95-2180Zyfjnzud PathologyNormalProMedica Middletown HospitalComment on above:Result Comment: [facility] [address] [place] [address] Surgical Pathology Consultation ADDENDUM CA Patient Name:JOSE DAVID:1945 (Age: 78)Gender:FTaken:4Reported:09/26/2023hysician(s):Kristel Reid MD ([phone])Copy To: Rec. #:[id number]: #[id number] Final Pathologic Diagnosis 1. Left temporal artery [...] small caliber artery which shows transmural moderately densechronic fibroinflammatory reaction with histiocytes, lymphocytes and focal eosinophils. Occasional multinucleated foreign body giant cells are also noted. There is intimal hyperplasia and subtotal luminal obliteration. The elastic lamina is fragmented. 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 Clinical pathologic correlation is suggested. Report Electronically Signed Out wak/09/26/2023José Luis Pederson MD Addendum ([facility]) Date Reported: 09/29/2023 In both parts of the specimen, and elastic special stain (with appropriate controls) demonstrates fragmentation and loss of the internal elastic lamina. Electronically Signed Out José Luis Pederson MD Interpretation performed at [facility], [address] [place] [address], License number: [id number]. Clinical History Temporal arteries. Gross Description 1. Received in formalin labeled [place], left temporal artery biopsy is a segment of vasculature, 2 x 0.3 cm. The specimen is sectioned to reveal a pinpoint lumen. Are 3 segments of vasculature ranging from 0.5 cm to 1.2 cm in length by 0.2 cm in diameter. The specimen is submitted entirely in a single cassette. (1,ns,C11-3002-8, m1) . 2. Received in formalin labeled [place], right temporal artery biopsy are 3 segments of vasculature ranging from 0.5 cm to 1.2 cm in length by 0.2 cm in diameter. The segments are sectioned to reveal pinpoint lumens. The specimen are submitted entirely in cassettes A-B. (2,ns,S39-5008-8, m1) 09/25/2023G Specimen(s) Received 1: Left temporal artery biopsy 2: Right temporal artery biopsy Fee Codes(s): 1; 96893, 74319 2; 48450, 17900tMWDT/dRVVT.excess phospholipid Coag (PPP) [Ratio]on 09-25-2023 dRVVT excess phospholipid Coag Ql (PPP)NegativeAllegheny Valley HospitalANCAon 05-35-6225Fgrtfrzlpc cytoplasmic Ab IF Ql (S)See Below St. Rita's HospitalComment on above:NOTE TEST RESULT FLAG UNIT REF.RANGE C-ANCA by Immunofluorescence Negative Negative P-ANCA by Immunofluorescence Negative Negative Proteinase-3 Ab <0.2 AI <1.0 Myeloperoxidase Ab <0.2 AI <1.0 INTERPRETATION (ANCA) See below Equivocal staining seen on the ethanol (indirect immunofluorescence screen) side but negative results on follow up confirmatory testing. Anti-nuclear antibody test may be considered. Clinical correlation is required. STAFF REVIEW (ANCA) See below Reviewed by Arun Tucker, Ph.D D([facility]) This test is used as an aid in diagnosis of patients with autoimmune vasculitidies. The final interpretation should be done in conjunction with ANCA test results and clinical correlation. Test Performed By: [facility] [employer] [address] [place] [address] Product Marketing Specialist: Meño Hernandez III, M.D. CLIA #[id number]^ BASIC METABOLIC PANLon 56-45-1452Yslwd gap [Moles/Vol]10 mmol/LNormal5-15 Medina HospitalComment on above:Performed By: #### CBCA, CMP, 1988-5, FEPR, 2276-4, 2284-8, 69654-4, 2132-9, 07721-6, 28479-6, 5130-0, 80118-0, 23253- 6, 82166-4, 3357-1, 8092-9, 27627-9, 12093-9, 05762-1, 27720-3, 09135-2 #### [facility] ([id number]) [address], [address] [place], [place] [address]Urqmeuv [Mass/Vol]8.5 mg/dLNormal8.5-10.5PWooster Community HospitalComment on above:Performed By: #### MICHAEL, CMP, 1987-12, FEPR, 2276-4, 2284-8, 42191-1, 2132-9, 33339-1, 01795-7, 5130-0, 42194-3, 42914-0, 26083-7, 3357-1, 8092-9, 34519-8, 50531-0, 33338-8, 76626-3, 02623-8 #### [facility] ([id number]) [address], [address] [place], [place] [address]Jpfkgllm [Moles/Vol]101 mmol/WIflyxw19-383UnhJaoohi Middletown HospitalComment on above:Performed By: #### MICHAEL, KELVIN, 1986-12, FEPR, 6-4, 2284-8, 28127-7, 2132-9, 12161-5, 62986-1, 5130-0, 91132-6, 95375-4, 46049-8, 3357-1, 8092-9, 70261-5, 79848-0, 91330-0, 72802-4, 00570-5 #### [facility] ([id number]) [address], [address] [place], [place] [address]BI5 [Moles/Vol]29 mmol/KIstybm56-49JluLsetexWooster Community Hospital Comment on above:Performed By: #### MICHAEL, CMP, 1987-12, FEPR, 2276-4, 2284-8, 20658-5, 2132-9, 61522-8, 17261-0, 5130-0, 44102-5, 70248-3, 98864-6, 3357-1, 8092-9, 17429-6, 90991-8, 28042-1, 22950-5, 95838-7 #### [facility] ([id number]) [address] [place] [address], [address] [place], [place] [address]Ccpdlibwxd [Mass/Vol]0.61 mg/dLNormal0.40-1.00ProMercy Memorial HospitalComment on above:Result Comment: METHOD TRACEABLE TO IDMS STANDARD Performed By: #### MICHAEL, CMP, 1987-12, FEPR, 2276-4, 2284-8, 53805-7, 2132-9, 76543-1, 66242-3, 5130-0, 97220-7, 69358-0, 86088-6, 3357-1, 8092-9, 25061-3, 59433-0, 73695-2, 23887-9, 87632-2 #### [facility] ([id number]) [address] [place] [address], [facility] [address] [place], [place] [address]lZWT (CKD-EPI) NON-RACE DEPENDENT>90Normal>59ProMercy Memorial HospitalComment on above:Result Comment: Reported eGFR is based on the CKD-EPI 2020 equation that does not use a race coefficient.Performed By: #### CBCA, CMP, 1986-12, FEPR, 2276-4, 2284-8, 55685-4, 2132-9, 75130-4, 42495-6, 5130-0, 91787-4, 32440-8, 14504-3, 3357-1, 8092-9, 32341-2, 08304-6, 86598-8, 61413-2, 25277-3 #### [facility] ([id number]) [address] [place] [address], [address] [place], [place] [address]Xjliutg [Mass/Vol]98 mg/tXIsbxtt02-56CwrCgmntb [facility] Comment on above:Performed By: #### MICHAEL, KELVIN, 1986-12, FEPR, 2276-4, 2284-8, 03100-2, 2132-9, 81558-9, 84754-2, 5130-0, 02143-7, 22719-6, 65871-5, 3357-1, 8092-9, 63249-7, 72228-7, 37287-5, 72649-5, 65038-5 #### [facility] ([id number]) [address] [facility], [address] [place], [place] [address]Geoqlpkts [Moles/Vol]3.5 mmol/LNormal3.5-5.0ProMercy Memorial HospitalComment on above:Performed By: #### KELVIN RODRIGUEZ, 1986-12, FEPR, 2275-4, 2284-8, 99019-4, 2132-9, 52804-5, 09607-7, 5130-0, 52267-5, 53186-2, 93675-4, 3357-1, 8092-9, 95218-1, 11637-0, 85300-4, 07079-8, 91829-1 #### [facility] ([id number]) [address], [address] [place], [place] [address]Mytsxz [Moles/Vol]140 mmol/QQjmxph294-999FloElamql [facility] HospitalComment on above:Performed By: #### MICHAEL, KELVIN, 1986-12, FEPR, 2275-4, 2284-8, 68078-9, 2132-9, 17968-8, 11817-7, 5130-0, 22585-4, 31881-1, 51831-1, 3357-1, 8092-9, 77253-6, 77405-0, 86372-2, 53084-0, 04955-1 #### [facility] ([id number]) [address] [facility] [facility], [address] [place], [place] [address]Twlg nitrogen [Mass/Vol]22 mg/dLNormal5-27Medina HospitalComment on above:Performed By: #### CBCMarisol, KELVIN, 1986-12, FEPR, 2276-4, 2284-8, 68567-8, 2132-9, 85910-9, 82743-4, 5130-0, 79217-3, 94186-0, 10420-7, 3357-1, 8092-9, 61942-3, 83223-8, 43533-6, 21264-5, 96348-5 #### [facility] ([id number]) [address] [place] [address], [address] [place], [place] [address]Ljmew Metabolic Panelon [id number] gap [Moles/Vol]10 mmol/L 5 - 15 mmol/LPrRose Medical Center Health SystemCalcium [Mass/Vol]8.5 mg/dL8.5 - 10.5 mg/dL [facility] HospitalChloride [Moles/Vol]101 mmol/L98 - 109 mmol/LProMedmobile city hospital Health SystemCO2 [Moles/Vol]29 mmol/L22 - 32 mmol/[facility] Creatinine [Mass/Vol]0.61 mg/dL0.40 - 1.00 mg/dLSt. Rita's HospitalComment on above:METHOD TRACEABLE TO IDNC STANDARDeGFR (CKD-EPI)non-race dependent- PINF [facility] Rita's HospitalComment on above: Reported eGFR is based on the CKD-EPI 2020 equation that does not use a race coefficient. Glucose [Mass/Vol]98 mg/dL65 - 99 mg/dLFulton County Health Center SystemPotassium [Moles/Vol]3.5 mmol/L3.5 - 5.0 mmol/LProMedmobile city hospital Health SystemSodium [Moles/Vol] 140 mmol/L134 - 146 mmol/LProMedmobile city hospital Health SystemUrea nitrogen [Mass/Vol]22 mg/dL5 - 27 mg/dLAllegheny Valley HospitalCBC AND AUTO DIFF on 02-38-6698MNWZSJPR BASOPHIL0.1 X10E9/LNormal0.0-0.2PWooster Community Hospital Comment on above:Performed By: #### CBCMarisol, CMP, 1987-12, FEPR, 2276-4, 2284-8, 12412-0, 2132-9, 03381-7, 43251-4, 5130-0, 66517-4, 81398-6, 12987-9, 3357-1, 8092-9, 32532-5, 72084-6, 96779-1, 55694-4, 92248-8 #### [facility] ([id number]) [address] [place] [address], [address] [place], [place] [address]VGXWATVC WZGYJXYSDF75.3 X10E9/LHigh1.5-6.6ProMedica Middletown HospitalComment on above:Performed By: #### CBCA, CMP, 1987-12, FEPR, 2276-4, 2284-8, 06869-7, 2132-9, 18866-6, 42421-9, 5130-0, 89334-9, 97989-1, 41882-6, 3357-1, 8092-9, 51066-4, 06040-4, 48818-5, 97782-3, 95460-5 #### [facility] ([id number]) [address] [place] [address], [address] [place] [address]Tbdsklgqm/100 WBC (Bld)0.5 %NormalProMercy Memorial Hospital Comment on above:Performed By: #### CBCA, CMP, 1987-12, FEPR, 2276-4, 2284-8, 97250-5, 2132-9, 31396-3, 38064-8, 5130-0, 61637-4, 60283-3, 28141-3, 3357-1, 8092-9, 92207-1, 21291-6, 59903-0, 98695-3, 34078-3 #### [facility] ([id number]) [address] [place] [address], [address] [place], [place] [address]Pxatuxczxzy (Bld) [#/Vol]0.0 10*3/uLNormal0.0-0.4ProMedica Valle HospitalComment on above:Performed By: #### CBCA, CMP, 1987-12, FEPR, 2276-4, 2284-8, 73539-5, 2132-9, 77390-2, 96518-0, 5130-0, 31805-6, 34445-3, 91583-1, 3357-1, 8092-9, 62696-3, 18953-4, 79511-3, 47286-3, 28577-3 #### [facility] ([id number]) [address], [address] [place], [place] [address]Jazqelfovxk/100 WBC (Bld)0.0 %NormalProMercy Memorial Hospital Comment on above:Performed By: #### CBCA, CMP, 1987-12, FEPR, 2276-4, 2284-8, 64748-2, 2132-9, 52934-8, 93165-3, 5130-0, 77927-5, 03614-4, 21423-1, 3357-1, 8092-9, 71209-5, 29196-1, 77500-5, 23777-6, 52346-6 #### [facility] ([id number]) [address] [facility], [address] [place], [place] [address]Atlrfmqgvns distribution width (RBC) [Ratio]14.8 %Normal 11.5-15.0ProMercy Memorial HospitalComment on above:Performed By: #### CBCA, CMP, 1987-12, FEPR, 2276-4, 2284-8, 43204-9, 2132-9, 13750-7, 39630-8, 5130-0, 59133- 7, 36225-5, 48654-0, 3357-1, 8092-9, 17474-7, 14930-5, 32669-2, 03895-1, 41132-2 #### [facility] ([id number]) [address] [facility], [address] [place], [place] [address]Ymhgfpwjfh (Bld) [Volume fraction]25.6 %Iwg82-72SgaKfnxdu Umpire HospitalComment on above:Performed By: #### MICHAEL, CMP, 1987-12, FEPR, 2276-4, 2284-8, 43531-6, 2132-9, 62616-7, 24776-7, 5130-0, 86137-4, 58585-7, 12682-6, 3357-1, 8092-9, 02087-6, 27415-5, 43914-1, 31366-3, 10327-7 #### [facility] ([id number]) [address] [facility], [address] [place], [place] [address]Lajdfzqyxb (Bld) [Mass/Vol]8.3 g/dLLow11.7-15.5ProMedAshtabula General HospitalComment on above:Performed By: #### MICHAEL, KELVIN, 1987-12, FEPR, 2275-4, 2284-8, 51848-2, 2132-9, 13871-9, 91410-4, 5130-0, 11897-7, 11018-0, 72978-4, 3357-1, 8092-9, 97543-7, 24918-1, 72172-6, 25229-9, 14014-3 #### [facility] ([id number]) [address], [address] [place], [place] [address]Nnuytmsgoev (Bld) [#/Vol]1.6 10*3/uLNormal1.0-3.5PWooster Community HospitalComment on above:Performed By: #### JANEA, CMP, 1987-12, FEPR, 227-4, 2284-8, 39132-9, 2132-9, 24074-5, 43139-8, 5130-0, 75741-5, 82023-6, 38822-8, 3357-1, 8092-9, 71880-8, 88370-9, 47377-1, 40959-4, 24528-9 #### [facility] ([id number]) [address], [address] [place], [place] [address]Pqsdssomrrf/100 WBC (Bld)8.3 %NormalProMercy Memorial Hospital Comment on above:Performed By: #### CBCA, CMP, 1987-12, FEPR, 2276-4, 2284-8, 49491-1, 2132-9, 09492-0, 67917-4, 5130-0, 97585-6, 58989-7, 75183-4, 3357-1, 8092-9, 26432-0, 06688-1, 20630-7, 80561-2, 35008-7 #### [facility] ([id number]) [address], [address] [place], [place] [address]NQK (RBC) [Entitic mass]27.8 ifYzoqbu42-17TqvQnfwsl [facility]edo HospitalComment on above:Performed By: #### CBCA, CMP, 1987-12, FEPR, 2276-4, 2284-8, 31344-6, 2132-9, 35884-3, 59050-1, 5130-0, 09526-3, 71326-1, 12883-4, 3357-1, 8092-9, 64871-7, 08908-6, 46407-0, 79308-1, 36147-2 #### [facility] ([id number]) [address], [address] [place], [place] [address]FINU (RBC) [Mass/Vol]32.5 g/kDEzknfn84-64CaeHcvxau [facility] HospitalComment on above:Performed By: #### CBCA, CMP, 1987-12, FEPR, 2276-4, 2284-8, 35839-4, 2132-9, 76900-0, 10600-0, 5130-0, 09288-8, 33146-8, 61920-1, 3357-1, 8092-9, 04432-7, 59472-8, 94042-6, 81108-8, 05232-2 #### [facility] ([id number]) [address], [address] [place], [place] [address]BPQ (RBC) [Entitic vol]85 kAVupbiy53-023EhsRzthib [place] HospitalComment on above:Performed By: #### CBCA, CMP, 1987-12, FEPR, 2275-4, 2283-8, 89299-8, 213-9, 06203-3, 83469-1, 5130-0, 71107-5, 75931-8, 68383-7, 3357-1, 8092-9, 83344-2, 12120-7, 01623-4, 33386-3, 07880-9 #### [facility] ([id number]) [address], [address] [place], [place] [address]Ksytpsybf (Bld) [#/Vol]1.0 10*3/uLHigh0-0.9ProMercy Memorial HospitalComment on above:Performed By: #### CBCA, CMP, 1987-12, FEPR, 2275-, 2283-8, 04424-4, 213-9, 69952-7, 46691-0, 5130-0, 08472-0, 89630-5, 06817-1, 3357-1, 8092-9, 01555-4, 74530-2, 94973-8, 44386-7, 98812-8 #### [facility] ([id number]) [address], [address] [place], [place] [address]Gxguznfuj/100 WBC (Bld)5.0 %NormalProMercy Memorial Hospital Comment on above:Performed By: #### CBCA, CMP, 1987-12, FEPR, 227-4, 2284-8, 68507-9, 2132-9, 56252-6, 12550-1, 5130-0, 26156-9, 21850-5, 93222-2, 3357-1, 8092-9, 78666-4, 74524-3, 38626-8, 31430-9, 24691-8 #### [facility] ([id number]) [address], [address] [place], [place] [address]Lwskvoeoiui/100 WBC (Bld)86.2 %NormalProMercy Memorial Hospital Comment on above:Performed By: #### CBCA, CMP, 1987-12, FEPR, 227-4, 228-8, 32269-5, 2132-9, 06370-7, 03528-1, 5130-0, 11094-9, 33594-7, 91369-1, 3357-1, 8092-9, 05632-5, 98425-3, 69472-1, 77720-1, 69017-0 #### [facility] ([id number]) [address] [facility], [address] [place], [place] [address]Yqfwxuqf mean volume (Bld) [Entitic vol]6.5 fLLow7-12ProMedica Middletown HospitalComment on above:Performed By: #### CBCA, CMP, 1987-12, FEPR, 2275-4, 4-8, 53439-1, 2131-9, 75878-5, 10190-7, 5130-0, 19038-4, 40554-0, 09165-0, 3357-1, 8092-9, 87824-3, 67131-3, 49623-0, 05334-0, 49518-1 #### [facility] ([id number]) [address], [address] [place], [place] [address]Vfefxsmtc (Bld) [#/Vol]902 10*3/hUGoqe544-904FpmErkvve [place] HospitalComment on above:Performed By: #### CBCA, CMP, 1987-12, FEPR, 2276-4, 2284-8, 12012-3, 2132-9, 24475-9, 14159-4, 5130-0, 91799-3, 75257-0, 62237-0, 3357-1, 8092-9, 40023-6, 80826-6, 57687-3, 73333-8, 06097-4 #### [facility] ([id number]) [address] [place] [address], [address] [place] [address]PVB COUNT3.00 X10E12/LLow3.80-5.20[facility] Comment on above:Performed By: #### CBCA, CMP, 1987-, FEPR, 2276-4, 2284-8, 62917-8, 2132-9, 37972-2, 62967-4, 5130-0, 64237-9, 54537-3, 25216-0, 3357-1, 8092-9, 81483-4, 05253-9, 28055-0, 12767-9, 16643-3 #### [facility] ([id number]) [address] [place] [address], [address] [place] [address]KVS (Bld) [#/Vol]18.9 10*3/uLHigh4.0-11.0Medina HospitalComment on above:Performed By: #### CBCA, CMP, 1987-12, FEPR, 2276-4, 2284-8, 86400-8, 2132-9, 72578-0, 84369-3, 5130-0, 18685-7, 76010-6, 73210-6, 3357-1, 8092-9, 54839-1, 44309-5, 57394-8, 44760-1, 92346-6 #### [facility] ([id number]) [address] [place] [address], [address] [place], [place] [address]VPK auto differentialon 90-92-6988Ksdduzkmv (Bld) [#/Vol]0.1 10*3/uLProMediMiami Valley Hospital SystemBasophils/100 WBC (Bld)0.5 %ProMedica Health SystemEosinophils (Bld) [#/Vol]0.0 10*3/uLSt. Rita's HospitalEosinophils/100 WBC (Bld)0.0 %[facility] Rita's HospitalErythrocyte distribution width (RBC) [Ratio]14.8 %11.5 - 15.0 %[facility]'s HospitalHematocrit (Bld) [Volume fraction]25.6 %Low35 - 47 %[facility]'s HospitalHemoglobin (Bld) [Mass/Vol]8.3 g/dLLow11.7 - 15.5 g/dLSt. Rita's HospitalInterpretation and review of laboratory resultsAbnormalSt. Rita's HospitalLymphocytes (Bld) [#/Vol]1.6 10*3/uLSt. Rita's HospitalLymphocytes/100 WBC (Bld)8.3 %[facility]'s HospitalMCH (RBC) [Entitic mass]27.8 pg27 - 34 [facility] CenterMCHC (RBC) [Mass/Vol]32.5 g/dL32 - 36 g/dLSt. Rita's HospitalMCV (RBC) [Entitic vol]85 fL80 - 100 [facility] HospitalMonocytes (Bld) [#/Vol]1.0 10*3/uLHigh St. Rita's HospitalMonocytes/100 WBC (Bld)5.0 %[facility] Neutrophils (Bld) [#/Vol]16.3 10*3/uLHighSt. Rita's HospitalNeutrophils/100 WBC (Bld)86.2 %[facility]'s HospitalPlatelet mean volume (Bld) [Entitic vol] 6.5 fLLow7 - 12 [facility] HospitalPlatelets (Bld) [#/Vol]902 10*3/uLHigh St. Rita's HospitalRBC (Bld) [#/Vol]3.00 10*6/uLLowSt. Rita's Hospital WBC corrected for nucl RBC Auto (Bld) [#/Vol]18.9HighWellSpan Surgery & Rehabilitation HospitalCardiac echo study ProcedureOrdered By: Nacho Grant on 36-67-3738Pcaadu root2.80 [facility] Work Phone: AV mean gradient6.00mmHgSt. Rita's Hospital Work Phone: [phone] peak gradient8.64mmHgProInspro Work Phone: AV peak gtb337.00 cm/sPrSellbrite Work Phone: AV valve area1.95 hf7RlgOxxhkbInspro Work Phone: AV Velocity Ratio0.77Mount Ascutney HospitalInspro Work Phone: AV VTI33.60 [facility] Work Phone: E wave deceleration qajg317.00msecMount Ascutney HospitalInspro Work Phone: E/A ratio0.72[facility] HospitalInspro Work Phone: Echo EF Fmhctsrhi04 %[facility] Work Phone: [phone] %[facility] Work Phone: Energy loss index1.88[facility] HospitalInspro Work Phone: OJ82 %28 - 44 %[facility] Work Phone: Interventricular Septum Diastolic Thickness by 2D10 cm [facility] Work Phone: ZBQ8.00 cm0.6 - 1.1 [facility] Work Phone: LA size3.60 [facility] Work Phone: LA caxbbf91.00 lg7LpiCxwqluInspro Work Phone: LA Volume Index31.8 mL/k8QbrEgzrvlInspro Work Phone: Left Ventricle [phone] [facility] HospitalSell[facility] Work Phone: LV Diastolic Jrwfej54.20 mLEloqua Work Phone: LV ESV A2C56.30 mLEloqua Work Phone: LV ESV A4C33.20 [employer] Work Phone: LV RWT 2D51.28[facility] Ascut[facility] HospitalInspro Work Phone: LV Systolic Xtcyuy85.00 mLMount Ascutney HospitalInspro Work Phone: [phone] cm3.78 - 5.25 [facility] Work Phone: [phone] cm2.25 - 3.40 [facility] Work Phone: [phone] diameter1.80 [facility] Work Phone: LVOT peak vel1.37 m/[employer] [place] Work Phone: LVOT peak VTI25.80 [facility] Work Phone: LVOT stroke .65 mlMount Ascutney HospitalInspro Work Phone: MV Peak A Vel99.40 cm/[employer] [place] Work Phone: [phone] Peak E Vel71.30 cm/[employer] [place] Work Phone: [phone] pressure 1/2 time55.00 [facility] Work Phone: MV TDI E' (medial)6.85 cm/[employer] [place] Work Phone: MV valve area p 1/2 method4.00 ql1VofGwnddhInspro Work Phone: [phone] peak gradient4.16mmHgMount Ascutney HospitalInspro Work Phone: [phone] cm0.6 - 1.1 [facility] Work Phone: [phone] diastolic dimension (basal)29.0 [facility] Work Phone: [phone] [facility] Work Phone: [phone] cm/[employer] [place] Work Phone: [phone] area - Index1.3PGowalla Work Phone: DLMAAD-2.32PGowalla Work Phone: [phone]-3.48[facility] Ascutney HospitalInspro Work Phone: [phone] Work Phone: Cardiac echo study Procedureon 47-40-6504Ozlu Ventricle: There is mild concentric increased wall [...] was adequate. Comparison No prior study for comparison.XCELERARadiology Study observation (narrative) [facility]'s HospitalMR BRAIN W WO CONTon 39-92-9103AG BRAIN W WO CONTMR BRAIN W WO CONT MR BRAIN W [...] of the major arterial structures in the [place]. The paranasal sinuses are clear. [...] enhancement of the optic nerves which are symmetricin appearance. Optic nerve sheaths are normal. Lacrimal apparatus is unremarkable appearing. Normalenhancement of the cavernous sinus. IMPRESSION: * No [...] by Gilbert Jewell MD on 09/24/2023 4:24 AMNormalMedina HospitalMR Brain WO and W contrast Laura 32-68-2429VS BRAIN W WO CONT CLINICAL INFORMATION: Ophthalmoplegia, [...] of the major arterial structures in the [place]. The paranasal sinuses are clear. [...] by Gilbert Jewell MD on 09/24/2023 4:24 Gilbert Reyes MD - 09/24/2023 MR BRAIN W WO CONT [...] of the major arterial structures in the [place]. The paranasal sinuses are clear. [...] Gilbert Jewell MD on 09/24/2023 4:24 AM [facility] HospitalRadiology Study observation (narrative)[facility]'s HospitalMR ORBIT W WO CONTon 81-06-2354SE ORBIT W WO CONTMR ORBIT W WO CONT EXAM:MR ORBIT W [...] of the major arterial structures in the [place]. The paranasal sinuses are clear. [...] enhancement of the optic nerves which are otherwisesymmetric in appearance. Optic nerve sheaths are normal. [...] by Gilbert Jewell MD on 09/24/2023 4:25 [facility] CenterMR Orbit WO and W contrast Laura 02-60-6540BMYX:MR ORBIT W WO CONT INDICATION: Optic neuritis [...] of the major arterial structures in the [place]. The paranasal sinuses are clear. [...] by Gilbert Jewell MD on 09/24/2023 4:25 Gilbert Reyes MD - 09/24/2023 EXAM:MR ORBIT W WO CONT [...] of the major arterial structures in the [place]. The paranasal sinuses are clear. [...] MD on 09/24/2023 4:25 AM [facility] Hospitaluiu [facility] HospitalRadiology Study observation (narrative)[facility] HospitalWanteringMR Orbit WO and W contrast IVOrdered By: Gilbert Jewell on 09-24-2023 [facility] Work Phone: Neutrophil cytoplasmic Ab IF Ql (S)on 09-24-2023 [facility] HospitalScratch Music GroupReticulocyteson 66-98-9614Aipxebolpbpnr/100 RBC (Bld)2.3 %High0.4 - 2.2 %[facility]'s HospitalReticulocytes/100 RBC (Bld)on 09-24-2023 Interpretation and review of laboratory resultsAbnormalProACMH HospitalRETICULOCYTE COUNT2.3 %High0.4-2.2ProMedAshtabula General HospitalComment on above:Performed By: #### CBCA, CMP, 1988-5, FEPR, 2276-4, 2284-8, 67329-3, 2132-9, 23215-6, 69142-5, 5130-0, 29664-5, 30909-3, 87182-2, 3357-1, 8092-9, 79020-2, 87818-9, 13220-2, 01751-0, 00471-7 #### [facility] ([id number]) [address], [address] [place], [place] [address]CJUAG HEPATITIS PANELon 79-39-1078JWMF HCV W/PCR REFLX Non-ReactiveNormalNRCTMedina HospitalComment on above:Result Comment: If recent infection suspected, recommend repeat testing (>2 months). Gsqwyl-ps-tjnfvv ratio is <0.80.Performed By: #### CBCA, CMP, 1987-12, FEPR, 2276-4, 2284-8, 40785-7, 2132-9, 95129-4, 32891-7, 5130-0, 60491-0, 00220-6, 72011-4, 3357-1, 8092-9, 69163-2, 96562-0, 06584-9, 02076-4, 85878-6 #### [facility] ([id number]) [address] [facility], [address] [place], [place] [address]GGKLULBNE A IGMNon-ReactiveNormalNRCTMedina Hospital Comment on above:Performed By: #### MICHAEL, CMP, 1987-12, FEPR, 6-4, 2284-8, 92240-9, 2132-9, 71165-6, 47943-7, 5130-0, 46472-7, 49566-3, 27050-8, 3357-1, 8092-9, 99725-8, 21768-7, 73345-4, 33155-2, 45251-0 #### [facility] ([id number]) [facility] [facility], [address] [place], [place] [address]UTEHBUVTV B [facility] IGMNegativeNocrawley memorial hospitalNEGMedina Hospital Comment on above:Performed By: #### MICHAEL, CMP, 1987-12, FEPR, 2275-4, 2284-8, 15498-6, 2132-9, 85020-9, 65306-6, 5130-0, 89501-0, 97337-2, 30056-0, 3357-1, 8092-9, 26066-1, 16689-0, 95812-1, 04640-9, 99211-6 #### [facility] ([id number]) [address] [facility], [address] [place], [place] [address]IHJTLKTMU B SURF AGNegativeNormalNEGMedina Hospital Comment on above:Performed By: #### MICHAEL, CMP, 1987-12, FEPR, 2276-4, 2284-8, 14378-7, 2132-9, 77056-0, 64369-9, 5130-0, 58820-2, 29074-0, 15005-6, 3357-1, 8092-9, 05529-8, 84428-5, 26699-3, 42417-1, 51216-8 #### [facility] ([id number]) [address] [place] [address], [address] [place], [place] [address]UIQ Screen w/ Reflexon 63-54-3022Fgbtala Ab IA Ql (S)Positive AbnormalNegative^NegativeProDayton Va Medical CenterComment on above: Testing performed using multiplex flow immunoassay. Eleven different antigens associated with systemic autoimmune diseases (dsDNA,Sm,Sm/SCOOP FILLER,SCOOP FILLER,Chromatin, SSA,SSB,Tiki-1,Scl70,Ribo P,Centromere B) are included in this screening test. ANTI CARDIOLIPIN AB IGG IGA IGMon 49-07-8315RGL IgA<2.5Eyjifj5-64.9ProMercy Memorial HospitalComment on above:Performed By: #### CBCA, CMP, 1987-12, FEPR, 2276-4, 2284-8, 96585-6, 2132-9, 55314-8, 53131-6, 5130-0, 55144-7, 66687-0, 20653-5, 3357-1, 8092-9, 21343-0, 51812-8, 93122-4, 98453-5, 92428-3 #### [facility] ([id number]) [address] [place] [address], [address] [place], [place] [address]ZLQ IgG<1.8Ejnfbv5-85.9ProMercy Memorial HospitalComment on above:Performed By: #### CBCA, CMP, 1987-12, FEPR, 2276-4, 2284-8, 13008-4, 2132- 9, 51173-8, 15202-2, 5130-0, 03165-2, 74279-3, 40846-8, 3357-1, 8092-9, 98438-7, 23837-1, 05542-6, 58576-3, 72857-9 #### [facility] ([id number]) [facility], [address] [place] [address]ALF IgM<1.8Pprnzh0-49.9Medina HospitalComment on above:Performed By: #### MICHAEL, KELVIN, 1987-12, FEPR, 6-4, 2284-8, 55949-8, 2132- 9, 17444-0, 05346-0, 5130-0, 29017-3, 85294-9, 17433-1, 3357-1, 8092-9, 84048-5, 32117-2, 43176-0, 36710-9, 67254-3 #### [facility] ([id number]) [address] [place] [address], [address] [place], [place] [address]Otvfcoppyth Ql (U)on 05-18-7765SX1 ANTIBODY<0.2Normal<1.0 [facility] HospitalComment on above:Performed By: #### MICHAEL, KELVIN, 1987-12, FEPR, 6-4, 2284-8, 88418-3, 2-9, 66140-7, 56352-0, 5130-0, 19712-2, 70917- 6, 56146-2, 3357-1, 8092-9, 59774-3, 56581-1, 98569-9, 70762-9, 01846-8 #### [facility] ([id number]) [address] [place] [address], [address] [place], [place] [address]Rlko cardiolipin AB IgG IgA IgMon 64-00-2176Ulcpqwveynr IgA IA Qn (S)[facility] HospitalCardiolipin IgG IA Qn (S)[facility] Cardiolipin IgM IA Qn (S)[facility] HospitalAnti- Chromatin IGGon 03-67-1396Sfbirqhxb Ab Ql0.4NIAshtabula General Hospital SystemComment on above:CLIA ID [id number]-JFW antibody, double-strandedon 38-46-6239LMI double strand Ab Qn (S)1 [IU]/mLNINFFulton County Health Center SystemComment on above: Interpretation-------- <5 Negative 5-9 Indeterminate >9 Positive CLIA ID [id number] Anti-Ribosomal P AB IGGon 48-05-2725Nkxkynnxn P IgG Qn (S)[facility] CenterComment on above:CLIA ID [id number]-Volxw AB IGGon 78-15-8163Nhwxg extractable nuclear IgG Qn (S)[facility] Medical CenterComment on above:CLIA ID [id number]-[id number] GP1 AB PANELon 73-95-1378LZVQ-2 GP1 IgA<2.6Chfvcz8.0-19.9 [facility] HospitalComment on above:Performed By: #### KELVIN RODRIGUEZ, 1986-12, FEPR, 2275-4, 4-8, 42829-6, 2131-9, 91232-6, 57902-0, 5130-0, 28640-4, 83335- 6, 64317-4, 3357-1, 8092-9, 82267-6, 46532-7, 53940-2, 98542-3, 84855-0 #### [facility] ([id number]) [address] [facility], [address] [place], [place] [address]HOSG-8 GP1 IgG<1.7Enmmuc3.0-19.9[facility] HospitalComment on above:Performed By: #### KELVIN RODRIGUEZ, 1986-12, FEPR, 6-4, 2284-8, 64677-8, 2131-9, 96950-9, 22609-7, 5130-0, 72533-4, 58865-4, 44558-8, 3357-1, 8092-9, 71297-5, 35436-4, 12061-8, 91042-5, 65796-0 #### [facility] ([id number]) [address] [place] [address], [address] [place], [place] [address]VEMI-9 GP1 IgM4.1 u/mLNormal0.0-19.9[facility] Comment on above:Performed By: #### CBCA, CMP, 1986-12, FEPR, 2275-4, 2284-8, 08644-8, 2-9, 58413-3, 87261-3, 5130-0, 68326-2, 26215-9, 26067-1, 3357-1, 8092-9, 93466-6, 62495-8, 69578-0, 32572-5, 13233-3 #### [facility] ([id number]) [address] [place] [address], [address] [place], [place] [address]Uqld-5 glycoprotein antibodieson 88-00-5465Aqeh 2 glycoprotein 1 IgA IA Qnu/mL0.0 - 19.9 u/mLSt. Rita's HospitalBeta 2 glycoprotein 1 IgG IA Qnu/mL0.0 - 19.9 u/mLSt. Rita's HospitalBeta 2 glycoprotein 1 IgM IA Qn4.1 u/mL0.0 - 19.9 u/mLAllegheny Valley HospitalC-reactive proteinon 45-03-5085GHZ [Mass/Vol]13.3 mg/dLHigh0.000 - 0.744 mg/dLSt. Rita's HospitalCBC AND AUTO DIFFon 04-86-3213JNHLQTJJ BASOPHIL0.0 X10E9/LNormal 0.0-0.2PWooster Community HospitalComment on above:Performed By: #### CBCA, CMP, 1986-12, FEPR, 2276-4, 2284-8, 51836-7, 2132-9, 94568-5, 73939-6, 5130-0, 87503- 7, 64331-0, 32597-2, 3357-1, 8092-9, 69775-1, 28358-0, 16669-2, 67496-2, 62285-5 #### [facility] ([id number]) [address] [address], [address] [place], [place] [address]HOTIMMSS SFKKVVNCOI90.5 X10E9/LHigh1.5-6.6ProMercy Memorial HospitalComment on above:Performed By: #### CBCA, CMP, 1986-12, FEPR, 2275-4, 2284-8, 87096-0, 2132-9, 88078-3, 29927-4, 5130-0, 60074-3, 71490-7, 78462-0, 3357-1, 8092-9, 46394-1, 48563-8, 59480-7, 62790-9, 43338-8 #### [facility] ([id number]) [address] [facility] [facility], [address] [place], [place] [address]Rbkurvgkk/100 WBC (Bld)0.2 %NormalProSalem City Hospital Hospital Comment on above:Performed By: #### CBCA, CMP, 1986-12, FEPR, 2275-4, 2283-8, 73394-8, 2131-9, 33744-6, 02713-3, 5130-0, 65039-8, 90143-9, 25099-8, 3357-1, 8092-9, 19252-5, 00688-5, 96010-6, 88986-7, 84332-0 #### [facility] ([id number]) [address] [facility] [facility], [address] [place], [place] [address]Nynbheuvcrc (Bld) [#/Vol]0.0 10*3/uLNormal0.0-0.4[facility] HospitalComment on above:Performed By: #### CBCA, CMP, 1987-12, FEPR, 2275-4, 2284-8, 36731-2, 2131-9, 84714-6, 01243-4, 5130-0, 35542-8, 82185-2, 35933-1, 3357-1, 8092-9, 03470-5, 74909-8, 58155-0, 60817-5, 14689-6 #### [facility] ([id number]) [address], [address] [place], [place] [address]Xfjdtskabvw/100 WBC (Bld)0.0 %NormalProMercy Memorial Hospital Comment on above:Performed By: #### CBCA, CMP, 1986-12, FEPR, 2276-4, 2284-8, 09044-7, 2132-9, 26241-4, 36914-3, 5130-0, 40097-4, 74095-9, 04776-8, 3357-1, 8092-9, 79394-4, 08249-9, 54001-1, 36729-4, 81411-9 #### [facility] ([id number]) [address], [address] [place], [place] [address]Hpxjlmqwhcx distribution width (RBC) [Ratio]14.4 %Normal 11.5-15.0ProMercy Memorial HospitalComment on above:Performed By: #### CBCA, CMP, 1987-12, FEPR, 2276-4, 2284-8, 91390-5, 2132-9, 90413-9, 66067-3, 5130-0, 07403- 7, 81404-1, 99225-8, 3357-1, 8092-9, 63220-8, 70261-8, 91065-1, 03014-8, 99601-3 #### [facility] ([id number]) [address], [address] [place], [place] [address]Ilxxvyvqdl (Bld) [Volume fraction]27.8 %Iot27-31SgtBmvvpzMercy Memorial HospitalComment on above:Performed By: #### CBCA, CMP, 1987-12, FEPR, 2276-4, 2284-8, 75183-2, 2132-9, 09370-2, 76774-7, 5130-0, 52462-9, 33542-0, 45718-4, 3357-1, 8092-9, 52154-8, 17913-9, 20499-4, 81573-4, 65300-5 #### [facility] ([id number]) [facility] [facility], [address] [place], [place] [address]Ghmybubexv (Bld) [Mass/Vol]9.1 g/dLLow11.7-15.5PWooster Community HospitalComment on above:Performed By: #### CBCA, CMP, 1987-, FEPR, 2276-4, 2284-8, 57152-9, 2132-9, 97273-0, 36567-9, 5130-0, 51836-5, 40335-2, 58457-9, 3357-1, 8092-9, 39243-9, 06754-8, 02620-5, 22702-9, 14776-0 #### [facility] ([id number]) [address] [place] [address], [address] [place], [place] [address]Bwvmoboxxhr (Bld) [#/Vol]0.4 10*3/uLLow1.0-3.5PWooster Community HospitalComment on above:Performed By: #### CBCA, CMP, 1987-, FEPR, 6-4, 2284-8, 30023-1, 2132-9, 03617-3, 65358-1, 5130-0, 55219-4, 41718-9, 61646-2, 3357-1, 8092-9, 91327-1, 10245-6, 82711-5, 29893-8, 33835-2 #### [facility] ([id number]) [facility], [address] [place], [place] [address]Tabzuahspfk/100 WBC (Bld)3.3 %NormalProMedica Middletown Hospital Comment on above:Performed By: #### MICHAEL, KELVIN, 1987-12, FEPR, 2276-4, 2284-8, 27590-0, 2132-9, 74227-5, 24094-7, 5130-0, 55874-7, 64574-7, 98281-3, 3357-1, 8092-9, 45677-2, 13467-2, 29952-2, 05608-4, 15521-2 #### [facility] ([id number]) [address], [address] [place], [place] [address]QLB (RBC) [Entitic mass]27.8 ytCuuenz09-51KfeYfsbwe [place] HospitalComment on above:Performed By: #### MICHAEL, KELVIN, 1987-12, FEPR, 2276-4, 2284-8, 04339-7, 2132-9, 13448-5, 93835-5, 5130-0, 46642-1, 13798-7, 82241-5, 3357-1, 8092-9, 09466-9, 42119-0, 00785-9, 31465-5, 16014-9 #### [facility] ([id number]) [address], [address] [place], [place] [address]ACEX (RBC) [Mass/Vol]32.7 g/eOWlewmi17-82MnoRwwxpj [place] HospitalComment on above:Performed By: #### MICHAEL, KELVIN, 1987-12, FEPR, 2276-4, 2284-8, 95710-9, 2132-9, 18748-0, 00792-5, 5130-0, 26779-4, 60058-6, 02151-3, 3357-1, 8092-9, 51034-7, 44191-5, 17470-5, 69847-7, 64137-2 #### [facility] ([id number]) [address], [address] [place], [place] [address]RQI (RBC) [Entitic vol]85 tNIwpsmq67-752TdvEywupx [place] HospitalComment on above:Performed By: #### CBCA, CMP, 1987-12, FEPR, 2276-4, 2284-8, 91535-4, 2132-9, 92694-4, 46619-1, 5130-0, 59521-4, 33789-9, 51023-8, 3357-1, 8092-9, 91328-4, 53241-1, 68201-5, 86491-4, 82175-5 #### [facility] ([id number]) [address], [address] [place], [place] [address]Gxusromlk (Bld) [#/Vol]0.1 10*3/uLNormal0-0.9ProMercy Memorial HospitalComment on above:Performed By: #### CBCA, CMP, 1987-12, FEPR, 2275-4, 2284-8, 07615-1, 2132-9, 82396-2, 69837-6, 5130-0, 30332-9, 79419-6, 59763-9, 3357-1, 8092-9, 81165-3, 63540-0, 72218-0, 76615-7, 54408-5 #### [facility] ([id number]) [address] [facility] [facility], [address] [place], [place] [address]Xddrcjhri/100 WBC (Bld)1.0 %NormalProSalem City Hospital Hospital Comment on above:Performed By: #### CBCA, CMP, 1987-12, FEPR, 227-4, 2284-8, 38071-2, 2132-9, 55789-6, 23806-2, 5130-0, 26473-3, 24870-3, 79314-9, 3357-1, 8092-9, 86813-6, 98906-6, 57251-3, 53022-6, 75791-9 #### [facility] ([id number]) [address] [facility], [address] [place], [place] [address]Gkqypsujeho/100 WBC (Bld)95.5 %NormalProMercy Memorial Hospital Comment on above:Performed By: #### CBCA, CMP, 1987-12, FEPR, 2276-4, 2284-8, 66474-0, 2132-9, 28471-6, 10339-6, 5130-0, 49932-7, 99240-4, 02969-0, 3357-1, 8092-9, 03529-5, 12640-1, 65548-9, 00627-4, 12886-3 #### [facility] ([id number]) [address], [address] [place], [place] [address]Gciopcex mean volume (Bld) [Entitic vol]6.2 fLLow7-12ProMedica Middletown HospitalComment on above:Performed By: #### JANEA, CMP, 1987-12, FEPR, 227-4, 2284-8, 80641-6, 2132-9, 18378-9, 75177-1, 5130-0, 93258-8, 41755-9, 37926-7, 3357-1, 8092-9, 07933-1, 80061-6, 74152-2, 15999-4, 15504-3 #### [facility] ([id number]) [address], [address] [place], [place] [address]Qzpnalfwp (Bld) [#/Vol]924 10*3/xECkhu878-287GdlLatels [place] HospitalComment on above:Performed By: #### CBCA, CMP, 1987-12, FEPR, 2276-4, 2284-8, 99345-5, 2132-9, 50860-3, 90500-0, 5130-0, 82494-1, 87675-6, 47019-4, 3357-1, 8092-9, 45216-5, 23484-5, 32492-0, 57519-9, 01960-5 #### [facility] ([id number]) [address] [place] [address], [address] [place], [place] [address]LUU COUNT3.27 X10E12/LLow3.80-5.20ProMercy Memorial Hospital Comment on above:Performed By: #### CBCA, CMP, 1987-12, FEPR, 2276-4, 2284-8, 59018-2, 2132-9, 02608-1, 14043-1, 5130-0, 47527-5, 22113-3, 04546-2, 3357-1, 8092-9, 11939-9, 96095-4, 30678-1, 80972-6, 54075-4 #### [facility] ([id number]) [address] [place] [address], [address] [place], [place] [address]FPD (Bld) [#/Vol]12.1 10*3/uLHigh4.0-11.0ProMercy Memorial HospitalComment on above:Performed By: #### CBCA, CMP, 1987-12, FEPR, 2276-4, 2284-8, 16167-0, 2132-9, 84669-1, 15283-6, 5130-0, 04417-6, 74863-1, 85386-4, 3357-1, 8092-9, 94115-5, 45216-9, 13405-3, 19697-8, 50936-9 #### [facility] ([id number]) [address] [place] [address], [address] [place], [place] [address]BELSBCRV BASOPHIL0.2 X10E9/LNormal0.0-0.2PWooster Community HospitalComment on above:Performed By: #### CBCA, CMP, 1987-12, FEPR, 2276-4, 2284-8, 55194-1, 2132-9, 14527-3, 30000-1, 5130-0, 81397-9, 70190-5, 80916-9, 3357-1, 8092-9, 61066-8, 84824-3, 09088-2, 74215-7, 01470-1 #### [facility] ([id number]) [address] [facility], [address] [place], [place] [address]UEERELEU CMBZSJGQCE64.4 X10E9/LHigh1.5-6.6ProMercy Memorial HospitalComment on above:Performed By: #### CBCA, CMP, 1987-12, FEPR, 2276-4, 2284-8, 70915-9, 2131-9, 36032-4, 39131-4, 5130-0, 66803-2, 52657-2, 15402-5, 3357-1, 8092-9, 04202-6, 71179-4, 59529-3, 44395-9, 58289-8 #### [facility] ([id number]) [address] [facility], [address] [place], [place] [address]Iqaawhdrs/100 WBC (Bld)2.1 %NormalProSalem City Hospital Hospital Comment on above:Performed By: #### CBCA, CMP, 1987-12, FEPR, 2275-4, 2284-8, 22448-5, 2131-9, 56601-5, 65983-6, 5130-0, 77785-0, 62697-0, 70208-1, 3357-1, 8092-9, 81173-8, 24585-1, 28988-0, 24741-5, 35027-6 #### [facility] ([id number]) [address] [facility], [address] [place], [place] [address]Fyiwjfwpsol (Bld) [#/Vol]0.0 10*3/uLNormal0.0-0.4Medina HospitalComment on above:Performed By: #### CBCA, CMP, 1987-12, FEPR, 2276-4, 2284-8, 48931-8, 2132-9, 87240-4, 78065-5, 5130-0, 42081-8, 30261-7, 54532-9, 3357-1, 8092-9, 89313-3, 21546-2, 71549-4, 61884-7, 37401-3 #### [facility] ([id number]) [address], [address] [place], [place] [address]Catpuevbcfq/100 WBC (Bld)0.0 %NormalProMercy Memorial Hospital Comment on above:Performed By: #### CBCA, CMP, 1987-12, FEPR, 2275-4, 2284-8, 34472-8, 2132-9, 66228-0, 90626-9, 5130-0, 30478-9, 80619-6, 36673-6, 3357-1, 8092-9, 82321-4, 20593-8, 69038-2, 72991-7, 16003-4 #### [facility] ([id number]) [address], [address] [place], [place] [address]Tazvekveyhk distribution width (RBC) [Ratio]14.6 %Normal 11.5-15.0ProMercy Memorial HospitalComment on above:Performed By: #### CBCA, CMP, 1987-12, FEPR, 2275-4, 4-8, 70203-4, 2132-9, 18315-8, 77897-7, 5130-0, 43312- 7, 38876-2, 39928-9, 3357-1, 8092-9, 78779-9, 26692-5, 77725-5, 72320-8, 34097-8 #### [facility] ([id number]) [address], [address] [place], [place] [address]Mfdmtsigbr (Bld) [Volume fraction]26.2 %Vwd58-29LyzFvhllqMercy Memorial HospitalComment on above:Performed By: #### CBCA, CMP, 1987-12, FEPR, 2276-4, 2284-8, 85875-7, 2132-9, 58569-1, 54032-7, 5130-0, 76679-7, 63316-3, 16699-7, 3357-1, 8092-9, 26471-6, 44510-8, 74162-2, 96712-4, 19625-3 #### [facility] ([id number]) [address] [facility], [address] [place], [place] [address]Miqifjvzbr (Bld) [Mass/Vol]8.6 g/dLLow11.7-15.5PWooster Community HospitalComment on above:Performed By: #### CBCA, CMP, 1987-12, FEPR, 2275-4, 2284-8, 57444-0, 2132-9, 39653-1, 85276-6, 5130-0, 39403-0, 73626-5, 49100-5, 3357-1, 8092-9, 67910-1, 36187-3, 49138-5, 26593-2, 55830-2 #### [facility] ([id number]) [address] [place] [address], [address] [place], [place] [address]Tvubiaefkxb (Bld) [#/Vol]0.4 10*3/uLLow1.0-3.5PWooster Community HospitalComment on above:Performed By: #### CBCA, CMP, 1987-12, FEPR, 2275-4, 2283-8, 04600-7, 213-9, 13700-4, 10656-9, 5130-0, 37038-2, 30695-2, 98614-8, 3357-1, 8092-9, 00687-6, 72816-4, 47283-1, 70957-7, 52336-4 #### [facility] ([id number]) [address] [place] [address], [address] [place], [place] [address]Lreiuppyexj/100 WBC (Bld)3.6 %NormalProMercy Memorial Hospital Comment on above:Performed By: #### CBCA, CMP, 1987-12, FEPR, 2276-4, 2284-8, 45501-5, 2132-9, 11315-1, 66162-7, 5130-0, 38387-0, 52060-1, 03717-6, 3357-1, 8092-9, 83609-4, 11841-5, 51830-6, 90885-2, 10106-3 #### [facility] ([id number]) [address], [address] (RBC) [Entitic mass]28.1 rpYisjgt76-14YtkXuossd [facility] HospitalComment on above:Performed By: #### MICHAEL, CMP, 1987-, FEPR, 2276-4, 2284-8, 28704-0, 2132-9, 42542-7, 52095-6, 5130-0, 84557-5, 73084-0, 86170-0, 3357-1, 8092-9, 24518-5, 81334-9, 75066-1, 82562-6, 97474-3 #### [facility] ([id number]) [address], [address] (RBC) [Mass/Vol]32.9 g/aLCtdhcb30-27IfiOaghzl [facility] HospitalComment on above:Performed By: #### JANEA, CMP, 1987-, FEPR, 2276-4, 2284-8, 14158-0, 2132-9, 73920-1, 10418-5, 5130-0, 03928-5, 65930-0, 62278-3, 3357-1, 8092-9, 61349-1, 34478-8, 50916-6, 03850-9, 34806-1 #### [facility] ([id number]) [address], [address] [place] [address]MCV (RBC) [Entitic vol]85 hANnsmpu94-287KnjIvpyty [facility] HospitalComment on above:Performed By: #### CBCA, CMP, 1987-12, FEPR, 2276-4, 2284-8, 53928-2, 2132-9, 43232-0, 74308-8, 5130-0, 28750-6, 12045-2, 99135-8, 3357-1, 8092-9, 62991-4, 42756-6, 60547-0, 15020-9, 56447-0 #### [facility] ([id number]) [address] [facility], [address] [place], [place] [address]Mvplwjham (Bld) [#/Vol]0.1 10*3/uLNormal0-0.9Medina HospitalComment on above:Performed By: #### CBCA, CMP, 1987-12, FEPR, 2276-4, 2284-8, 66858-1, 2132-9, 32600-7, 45422-3, 5130-0, 63949-9, 10057-9, 31498-6, 3357-1, 8092-9, 71338-5, 38342-7, 75532-0, 08877-0, 09467-2 #### [facility] ([id number]) [address] [facility], [address] [place], [place] [address]Ncztjnrlq/100 WBC (Bld)1.0 %NormalMedina Hospital Comment on above:Performed By: #### CBCA, CMP, 1987-12, FEPR, 2276-4, 2284-8, 89494-4, 2132-9, 20597-6, 21460-4, 5130-0, 41710-7, 59144-9, 05446-4, 3357-1, 8092-9, 31582-1, 50268-0, 49256-9, 83592-7, 03839-1 #### [facility] ([id number]) [address] [facility], [address] [place], [place] [address]Tsgadzjtfmq/100 WBC (Bld)93.3 %NormalProMercy Memorial Hospital Comment on above:Performed By: #### CBCA, CMP, 1987-, FEPR, 2276-4, 2284-8, 09861-4, 2132-9, 64183-1, 71229-7, 5130-0, 03509-7, 93083-4, 25024-1, 3357-1, 8092-9, 38463-9, 38879-2, 52964-0, 41812-7, 12394-5 #### [facility] ([id number]) [address], [address] [place], [place] [address]Jujboraq mean volume (Bld) [Entitic vol]6.3 fLLow7-12ProMedica Middletown HospitalComment on above:Performed By: #### CBCA, CMP, 1987-12, FEPR, 2276-4, 2284-8, 42603-7, 2132-9, 52638-0, 42430-8, 5130-0, 45551-4, 70679-8, 50414-5, 3357-1, 8092-9, 83037-5, 27898-6, 98627-8, 26339-2, 96073-0 #### [facility] ([id number]) [address], [address] [place], [place] [address]Cvwgmpmfz (Bld) [#/Vol]917 10*3/eRBmey075-814WrmJllkcj [facility] HospitalComment on above:Performed By: #### CBCA, CMP, 1987-12, FEPR, 2276-4, 2284-8, 56099-9, 2132-9, 25050-8, 76283-0, 5130-0, 33844-0, 50462-5, 93586-1, 3357-1, 8092-9, 26778-0, 00214-6, 06331-7, 44009-0, 20257-3 #### [facility] ([id number]) [address] [facility], [address] [place], [place] [address]MWW COUNT3.07 X10E12/LLow3.80-5.20[facility] Comment on above:Performed By: #### CBCA, CMP, 1987-, FEPR, 2276-4, 2284-8, 02077-0, 2132-9, 84982-8, 71587-9, 5130-0, 04145-0, 11807-6, 92692-0, 3357-1, 8092-9, 41326-6, 67773-1, 10342-6, 31829-4, 62408-3 #### [facility] ([id number]) [address] [place] [address], [address] [place], [place] [address]HVZ (Bld) [#/Vol]11.1 10*3/uLHigh4.0-11.0Medina HospitalComment on above:Performed By: #### CBCA, CMP, 1987-12, FEPR, 2276-4, 2284-8, 13704-9, 2132-9, 52652-1, 95610-4, 5130-0, 22392-4, 01285-8, 43673-6, 3357-1, 8092-9, 24750-9, 44444-5, 72082-5, 18314-6, 58057-1 #### [facility] ([id number]) [address] [place] [address], [address] [place], [place] [address]IUD auto differentialon 41-87-3296Ijzfidjwv (Bld) [#/Vol]0.0 10*3/uLProMedica Health SystemBasophils/100 WBC (Bld)0.2 %ProMedica Health SystemEosinophils (Bld) [#/Vol]0.0 10*3/uLProMedica Health SystemEosinophils/100 WBC (Bld)0.0 %ProMedica Health SystemErythrocyte distribution width (RBC) [Ratio]14.4 %11.5 - 15.0 %ProMedica Health SystemHematocrit (Bld) [Volume fraction]27.8 %Low35 - 47 %ProMedica Health SystemHemoglobin (Bld) [Mass/Vol]9.1 g/dLLow11.7 - 15.5 g/dLSt. Rita's HospitalInterpretation and review of laboratory resultsAbnormalSt. Rita's HospitalLymphocytes (Bld) [#/Vol]0.4 10*3/uLAkron Children's HospitalLymphocytes/100 WBC (Bld)3.3 %St[facility] Rita's HospitalMCH (RBC) [Entitic mass]27.8 pg27 - 34 [facility] CenterMCHC (RBC) [Mass/Vol]32.7 g/dL32 - 36 g/dLSt. Rita's HospitalMCV (RBC) [Entitic vol]85 fL80 - 100 [facility] HospitalMonocytes (Bld) [#/Vol]0.1 10*3/uLSt. Rita's HospitalMonocytes/100 WBC (Bld)1.0 %St. Rita's HospitalNeutrophils (Bld) [#/Vol]11.5 10*3/uLChildren's Hospital of The King's DaughtersNeutrophils/100 WBC (Bld) 95.5 %St. Rita's HospitalPlatelet mean volume (Bld) [Entitic vol]6.2 fLLow7 - 12 [facility] HospitalPlatelets (Bld) [#/Vol]924 10*3/[facility] CenterRBC (Bld) [#/Vol]3.27 10*6/[facility] HospitalWBC corrected for nucl RBC Auto (Bld) [#/Vol]12.1HighSt. Rita's Hospital ProMMercy HospitalBasophils (Bld) [#/Vol]0.2 10*3/[facility] Basophils/100 WBC (Bld)2.1 %St. Rita's HospitalEosinophils (Bld) [#/Vol]0.0 10*3/[facility] HospitalEosinophils/100 WBC (Bld)0.0 %St. Rita's HospitalErythrocyte distribution width (RBC) [Ratio]14.6 %11.5 - 15.0 %St. Rita's HospitalHematocrit (Bld) [Volume fraction]26.2 %Low35 - 47 %[facility]. Rita's HospitalHemoglobin (Bld) [Mass/Vol]8.6 g/dLLow11.7 - 15.5 g/dLSt. Rita's HospitalInterpretation and review of laboratory resultsAbnormalSt. Rita's HospitalLymphocytes (Bld) [#/Vol]0.4 10*3/uLAkron Children's Hospital Lymphocytes/100 WBC (Bld)3.6 %[facility] Medical CenterH (RBC) [Entitic mass] 28.1 pg27 - 34 [facility] CenterMCHC (RBC) [Mass/Vol]32.9 g/dL32 - 36 g/dLSt. Rita's HospitalMCV (RBC) [Entitic vol]85 fL80 - 100 [facility] HospitalMonocytes (Bld) [#/Vol]0.1 10*3/uLSt. Rita's Hospital Monocytes/100 WBC (Bld)1.0 %St. Rita's HospitalNeutrophils (Bld) [#/Vol]10.4 10*3/uLChildren's Hospital of The King's DaughtersNeutrophils/100 WBC (Bld)93.3 %St. Rita's HospitalPlatelet mean volume (Bld) [Entitic vol]6.3 fLLow7 - 12 [facility] HospitalPlatelets (Bld) [#/Vol]917 10*3/uLChildren's Hospital of The King's DaughtersRBC (Bld) [#/Vol]3.07 10*6/[facility] HospitalWBC corrected for nucl RBC Auto (Bld) [#/Vol]11.1HGeisinger Medical Center COMPREHENSIVE METABOLIC PANELon 00-33-2993Jlpktef [Mass/Vol]3.0 g/dLLow3.2-5.3 Medina HospitalComment on above:Performed By: #### CBCA, CMP, 1988-5, FEPR, 2276-4, 2284-8, 58589-1, 2132-9, 49123-1, 69314-5, 5130-0, 93519-3, 44398- 6, 00350-6, 3357-1, 8092-9, 57209-2, 53382-6, 56629-6, 59198-4, 79279-8 #### [facility] ([id number]) [address], [address] [place], [place] [address]RCC [Catalytic activity/Vol]227 U/YCvjv95-300BxxQbqspr [facility] HospitalComment on above:Performed By: #### MICHAEL, CMP, 1987-12, FEPR, 2275-4, 2284-8, 97629-6, 2132-9, 46697-4, 54386-9, 5130-0, 58329-1, 74552-7, 97665-5, 3357-1, 8092-9, 37896-5, 04084-5, 50706-2, 22096-0, 41361-1 #### [facility] ([id number]) [address], [address] [place], [place] [address]BUC [Catalytic activity/Vol]11 U/LNormal0-31ProMedEast [facility] Regional Hospital HospitalComment on above:Performed By: #### MICHAEL, CMP, 1987-12, FEPR, 6-4, 2284-8, 31593-0, 2132-9, 15631-9, 81070-2, 5130-0, 03846-8, 46632-5, 64136-5, 3357-1, 8092-9, 71246-1, 37195-1, 23479-0, 58711-1, 92825-4 #### [facility] ([id number]) [address], [address] [place], [place] [address]Kpwrd gap [Moles/Vol]13 mmol/LNormal5-15ProMediOhioHealth HospitalComment on above:Performed By: #### MICHAEL, CMP, 1987-12, FEPR, 2276-4, 2284-8, 51788-8, 2132-9, 16320-4, 32383-1, 5130-0, 67928-2, 99556-0, 84496-6, 3357-1, 8092-9, 75601-2, 00471-6, 90868-8, 06335-1, 69160-0 #### [facility] ([id number]) [address] [facility], [address] [place], [place] [address]XRH [Catalytic activity/Vol]12 U/LNormal0-41Pro[facility]ica [facility]letown HospitalComment on above:Performed By: #### MICHAEL, CMP, 1987-12, FEPR, 2275-4, 2283-8, 95183-2, 2131-9, 64071-8, 58461-3, 5130-0, 05572-8, 05238-7, 43689-2, 3357-1, 8092-9, 21581-9, 01043-3, 11460-3, 52195-0, 66637-0 #### [facility] ([id number]) [address] [facility], [address] [place], [place] [address]Udjzlltnv [Mass/Vol]0.6 mg/dLNormal0.3-1.2ProMedAshtabula General HospitalComment on above:Performed By: #### MICHAEL, KELVIN, 1987-12, FEPR, 2275-4, 2283-8, 77130-0, 2131-9, 19544-3, 68514-6, 5130-0, 36191-9, 21245-6, 50195-0, 3357-1, 8092-9, 50934-1, 74512-7, 52220-0, 69932-6, 62001-7 #### [facility] ([id number]) [address], [address] [place], [place] [address]Eddcmvb [Mass/Vol]8.6 mg/dLNormal8.5-10.5PWooster Community HospitalComment on above:Performed By: #### IMCHAEL, CMP, 1986-12, FEPR, 2276-4, 2284-8, 63536-5, 2132-9, 23561-8, 30328-5, 5130-0, 11635-2, 42255-2, 13984-6, 3357-1, 8092-9, 70128-7, 55733-6, 12791-5, 49951-2, 00749-8 #### [facility] ([id number]) [address], [address] [place], [place] [address]Zkiwmxmj [Moles/Vol]101 mmol/AOreojd98-083MsqJjrbbr Toledo HospitalComment on above:Performed By: #### MICHAEL, KELVIN, 1986-12, FEPR, 6-4, 2284-8, 59191-1, 2132-9, 30448-1, 40661-8, 5130-0, 40808-8, 11406-4, 67563-2, 3357-1, 8092-9, 72204-0, 02022-1, 31214-8, 46122-1, 45422-3 #### [facility] ([id number]) [address], [address] [place], [place] [address]XK4 [Moles/Vol]25 mmol/WOfdlnx01-49MdbTnwrzgWooster Community Hospital Comment on above:Performed By: #### KELVIN RODRIGUEZ, 1986-12, FEPR, 2275-4, 2283-8, 23846-5, 2131-9, 81461-6, 32258-8, 5130-0, 53048-2, 37894-2, 33061-5, 3357-1, 8092-9, 66844-7, 20467-9, 76549-6, 57578-2, 01017-9 #### [facility] ([id number]) [address], [address] [place], [place] [address]Ltsxbpftmx [Mass/Vol]0.49 mg/dLNormal0.40-1.00Medina HospitalComment on above:Result Comment: METHOD TRACEABLE TO IDMS STANDARD Performed By: #### MICHAEL, KELVIN, 1986-12, FEPR, 6-4, 2284-8, 43342-3, 2131-9, 20110-0, 01611-4, 5130-0, 98102-6, 16573-0, 98113-1, 3357-1, 8092-9, 02728-4, 43510-2, 85831-5, 77998-4, 80214-4 #### [facility] ([id number]) [address] [facility], [address] [place], [place] [address]fNCM (CKD-EPI) NON-RACE DEPENDENT>90Normal>59ProMercy Memorial HospitalComment on above:Result Comment: Reported eGFR is based on the CKD-EPI 2020 equation that does not use a race coefficient.Performed By: #### KELVIN RODRIGUEZ, 1986-12, FEPR, 2276-4, 2284-8, 22428-4, 2-9, 93345-6, 44947-9, 5130-0, 67378-0, 30403-5, 42822-1, 3357-1, 8092-9, 90608-1, 93845-6, 43104-7, 85372-5, 31688-3 #### [facility] ([id number]) [address] [facility], [facility] [address] [place], [place] [address]Csffybd [Mass/Vol]141 mg/bZXdru87-11IzjTgnevmMedina Hospital Comment on above:Performed By: #### KELVIN RODRIGUEZ, 1986-12, FEPR, 2276-4, 2284-8, 88074-5, 2131-9, 95230-6, 07635-9, 5130-0, 88475-9, 53905-2, 34486-5, 3357-1, 8092-9, 67315-3, 50034-3, 61309-4, 04186-7, 21875-1 #### [facility] ([id number]) [address] [facility], [address] [place], [place] [address]Aphihzyty [Moles/Vol]3.7 mmol/LNormal3.5-5.0ProMercy Memorial HospitalComment on above:Performed By: #### KELVIN RODRIGUEZ, 1986-12, FEPR, 2276-4, 2284-8, 59321-4, 2132-9, 40068-2, 42086-1, 5130-0, 12812-4, 72334-2, 54318-8, 3357-1, 8092-9, 46767-3, 94747-0, 87913-0, 97480-5, 80296-4 #### [facility] ([id number]) [address] [facility], [address] [place], [place] [address]Jcobhqk [Mass/Vol]6.9 g/dLNormal6.0-8.0ProMercy Memorial Hospital Comment on above:Performed By: #### MICHAEL, KELVIN, 1986-12, FEPR, 2276-4, 2284-8, 10265-8, 2132-9, 59714-6, 61571-6, 5130-0, 44979-4, 51091-6, 47852-6, 3357-1, 8092-9, 43509-0, 41121-1, 37151-3, 10333-1, 23843-7 #### [facility] ([id number]) [address] [place] [address], [address] [place], [place] [address]Zajddz [Moles/Vol]139 mmol/HJsinqi113-416ZczMurwkb Toledo HospitalComment on above:Performed By: #### MICHAEL, KELVIN, 1986-12, FEPR, 2276-4, 2284-8, 29123-2, 2132-9, 91133-5, 63480-7, 5130-0, 98107-0, 38961-6, 91573-8, 3357-1, 8092-9, 35717-7, 94707-9, 87702-8, 84481-8, 08782-0 #### [facility] ([id number]) [address] [place] [address], [address] [place], [place] [address]Wloy nitrogen [Mass/Vol]14 mg/dLNormal5-27ProMercy Memorial HospitalComment on above:Performed By: #### CBCA, CMP, 1986-12, FEPR, 2276-4, 2284-8, 86939-4, 2132-9, 59685-3, 95093-3, 5130-0, 40300-9, 03166-3, 47520-0, 3357-1, 8092-9, 43393-3, 23148-8, 82533-6, 34181-3, 55239-1 #### [facility] ([id number]) [address] [place] [address], [address] [place], [place] [address]GDD [Mass/Vol]on 4C REACTIVE OFBABHZ35.3 mg/dLHigh 0.000-0.744PWooster Community HospitalComment on above:Performed By: #### CBCA, CMP, 1986-12, FEPR, 2275-, 2283-8, 66877-8, 213-9, 88385-7, 37316-9, 5130-0, 23554-3, 66707-6, 67805-9, 3357-1, 8092-9, 10327-8, 39747-4, 56586-1, 91098-6, 76161-8 #### [facility] ([id number]) [address] [place] [address], [address] [place], [place] [address]Yyefeylktf ABon 65-19-7646Xhdabvrevd protein B Ab Ql (S)HighNIPerry County Memorial HospitalComment on above:CLIA ID [id number] protein B Ab Ql (S)on 27-69-7307Pxdrdklhijmxrd and review of laboratory resultsAbnormal St. Rita's HospitalCENTROMERE ANTIBODY>8.0High<1.0[facility] Comment on above:Performed By: #### CBCA, CMP, 1986-12, FEPR, 2276-4, 2284-8, 97762-2, 2132-9, 40060-2, 44852-8, 5130-0, 35319-9, 97152-0, 39245-0, 3357-1, 8092-9, 76210-9, 47331-6, 84747-0, 43011-2, 83722-7 #### [facility] ([id number]) [address] [place] [address], [address] [place] [address]Xznidweco Ab Qlon 33-70-0366BNNXELRJJ AB IGG0.4 AINormal<1.0 Medina HospitalComment on above:Performed By: #### CBCA, CMP, 1987-5, FEPR, 2276-4, 2284-8, 63510-2, 2132-9, 05699-6, 51712-6, 5130-0, 62903-5, 06614- 6, 64009-9, 3357-1, 8092-9, 77446-5, 29093-9, 11586-3, 98863-4, 03069-9 #### [facility] ([id number]) [address] [place] [address], [address] [place] [address]Lmrzmblg Pathologyon 17-00-2837Bkzlykin PathologyNormalProMedica Middletown HospitalComment on above:Result Comment: [facility] [address] [place] [address] Clinical Pathology Report Patient Name:JOSE DAVID:1945 (Age: 78)Gender:FTaken:4Reported:4Physician(s):Tono Pan M.D. ([phone])Copy To: Rec. #:[id number]: #[id number] Final Pathologic Diagnosis Hypoalbuminemia with increase in acute phase reactants. No monoclonal bands identified. Report Electronically Signed Out df/4Dkevin Bains MD Interpret[place] [address], License number: [id number]. Clinical History E53.8, H53.8, R29.90. SERUM PROTEIN ELECTROPHORESIS SAMPLE NO: [id number] ELECTROPHORETIC FRACTION CONCENTRATIONS (g/dL) PATIENT REFERENCE RANGE [...] IgA : 180 IgM : 285 [place]: 2.91 Free Lambda: 2.38 [place]/Lambda ratio: 1.22 Specimen(s) Received 1: Serum Protein Electrophoresis 2: Serum IEP Fee Codes(s): 1; 30158-44 2; 19037-05Ybtbtooc Pathology Blood Smear Reviewon 61-72-5894Nsnkrigp Pathology Blood Smear ReviewNormalProMedica Middletown HospitalComment on above:Result Comment: [facility] [address] [place] [address] Clinical Pathology Report Patient Name:JOSE DAVID:1945 (Age: 78)Gender:FTaken:4Reported:4Physician(s):Tono Pan M.D. ([phone])Copy To: Rec. #:[id number]: #[id number] Final Pathologic Diagnosis Peripheral blood smear: Neutrophilic leukocytosis with lymphocytopenia.Thrombocytosis with moderatenormocytic anemia. See comment. Comment Normocytic anemia can be secondary to blood loss, autoimmune disease, chronic disease, etc. The above findings are consistent with thrombocytosis and neutrophilia. Further correlation is suggested for definitive diagnosis (reactive versus primary thrombocytosis): Thrombopoietin level, acute phase re actant such as CRP, ESR, fibrinogen levels etc. JAK2 mutation and other molecular test might be helpful to rule out primary thrombocytosis. Clinical correlation is recommended. Report Electronically Signed Out hna09/26/2023Og Martinez M.D. Interpretation performed at [facility], [address] [place] [address], License number: [id number]. Clinical History R29.9. BLOOD SMEAR EVALUATION CBC (09/23/2023 0818): WBC = 12.1 X10E9/L; HGB = 9.1 g/dL; HCT = 27.8%; MCV = 85 fL; PLT = 924 X10E9/L OTHER LAB DATA: Noncontributory. BLOOD SMEAR: Leukocytes: Neutrophilic leukocytosis with cytotoxic changes and lymphocytopenia. Erythrocytes: Moderate normocytic normochromic anemia. Platelets: Thrombocytosis. Specimen(s) Received Blood Smear Review Fee Codes(s): 1; 09634Jssyigodj (Vitamin B12) [Mass/Vol]on 88-32-3099EriZsvjxv [facility] System Comprehensive metabolic panelon 49-92-7459Jxzyfra [Mass/Vol]3.0 g/dLLow3.2 - 5.3 g/dLProBlanchard Valley Health System SystemALP [Catalytic activity/Vol]227 U/LHigh39 - 130 U/L [facility] SystemALT No additional P-5'-P [Catalytic activity/Vol]11 U/L0 - 31 U/[facility] SystemAnion gap [Moles/Vol]13 mmol/L5 - 15 mmol/L [facility] [employer] SystemAST [Catalytic activity/Vol]12 U/L0 - 41 U/[facility] SystemBilirubin [Mass/Vol]0.6 mg/dL0.3 - 1.2 mg/dLFulton County Health Center System Calcium [Mass/Vol]8.6 mg/dL8.5 - 10.5 mg/dLProBlanchard Valley Health System SystemChloride [Moles/Vol]101 mmol/L98 - 109 mmol/[facility] SystemCO2 [Moles/Vol]25 mmol/L22 - 32 mmol/[facility] SystemCreatinine [Mass/Vol]0.49 mg/dL0.40 - 1.00 mg/dLFulton County Health Center SystemComment on above:METHOD TRACEABLE TO IDMS STANDARDeGFR (CKD-EPI)non-race dependent- PINSaint John's Regional Health CenterComment on above: Reported eGFR is based on the CKD-EPI 2020 equation that does not use a race coefficient. Glucose [Mass/Vol]141 mg/eBTyos41 - 99 mg/dLFulton County Health Center SystemPotassium [Moles/Vol]3.7 mmol/L3.5 - 5.0 mmol/LPrRose Medical Center Health SystemProtein [Mass/Vol] 6.9 g/dL6.0 - 8.0 g/dLProEncompass Health Rehabilitation [facility] Health SystemSodium [Moles/Vol]139 mmol/L134 - 146 mmol/LPrRose Medical Center Health SystemUrea nitrogen [Mass/Vol]14 mg/dL5 - 27 mg/dL [facility]. Rita's HospitalDNA double strand Ab Qn (S)on 24-94-7590XWHEFE STRANDED DNA1 IU/MLNormal<5PWooster Community HospitalComment on above:Result Comment: Interpretation-------- <5 Negative 5-9 Indeterminate >9 Positive Performed By: #### CBCA, CMP, 1987-5, FEPR, 2276-4, 2284-8, 53278-4, 2132-9, 89551-2, 92606-8, 5130-0, 44807-7, 07797-7, 61391-7, 3357-1, 8092-9, 07027-4, 86924-9, 73440-0, 19877-1, 04352-9 #### [facility] ([id number]) [address] [place] [address], [address] [place], [place] [address]Pktkgv Coombson 81-05-7118Kzgbigtpdfbj DATNegativeProTitusville Area HospitalR Photometric method (Bld) [Velocity]on 58-55-7952Zwlmuyjhvxkhkk and review of laboratory resultsAbnormalProLancaster General HospitalESR, ERYTHROCYTE SEDIMENTATION OLVN271 mm/h High0-30Medina HospitalComment on above:Performed By: #### CBCA, CMP, 1987-12, FEPR, 2276-4, 2284-8, 52951-4, 2132-9, 15056-3, 79732-1, 5130-0, 54767- 7, 48594-8, 10809-9, 3357-1, 8092-9, 07337-6, 36332-1, 60323-4, 70592-7, 45542-7 #### [facility] ([id number]) [address] [place] [address], [address] [place], [place] [address]Hmvfdloqqxg Sedimentation Rate (ESR)on 63-43-8365ZDF Photometric method (Bld) [Velocity]114 mm/hHigh0 - 30 mm/[facility] SystemFERRITINon 46-78-9900Pcmfcinc [Mass/Vol]478 ng/pVYynw26-833EqqPiafrl[address] Comment on above:Performed By: #### CBCMarisol, CMP, 1987-12, FEPR, 2275-4, 4-8, 24672-5, 2131-9, 84653-1, 92604-8, 5130-0, 28818-5, 27906-3, 18507-4, 3357-1, 8092-9, 36089-9, 18250-6, 80538-5, 02829-4, 79458-6 #### [facility] ([id number]) [address] [place] [address], [address] [place], [place] [address]TJIR CYTOMETRYon 33-22-6991JQVF CYTOMETRYSEE SEPARATE REPORT, REVIEWED BY PATHOLOGISTNormalMedina HospitalComment on above:Performed By: #### CBCA, CMP, 1987-12, FEPR, 227-4, 2284-8, 25134-0, 2132-9, 93837-4, 90059-1, 5130-0, 09295-6, 29559-6, 15561-5, 3357-1, 8092-9, 52759-0, 67164-0, 28419-6, 96947-2, 98859-0 #### [facility] ([id number]) [address] [place] [address], [address] [place], [place] [address]Yjvqrazwyk 72-77-7041Rvftyrzh [Mass/Vol]478 ng/dSXfoz00 - 307 ng/mLSt. Rita's HospitalFerritin [Mass/Vol]on 67-26-7980Aymkfqwxkxxmws and review of laboratory resultsAbnormalWestern Wisconsin Health SystemFolateon 70-35-8442Pkrnht [Mass/Vol]13.0 ng/mL5.8 - PINF ng/mLSt. Rita's HospitalComment on above:NEW REFERENCE RANGEFolate [Mass/Vol]on 09-23-2023 [facility] Rita's HospitalFOLIC ACID13.0 ng/mLNormal>5.8[facility] Comment on above:Result Comment: NEW REFERENCE RANGEPerformed By: #### CBCA, CMP, 1987-12, FEPR, 2275-4, 2283-8, 31175-0, 2131-9, 23287-4, 15037-5, 5130-0, 19201-8, 39988-5, 42937-9, 3357-1, 8092-9, 35268-6, 07811-6, 26942-0, 15166-9, 99270-1 #### [facility] ([id number]) [address] [place] [address], [address] [place], [place] [address]Abczvaecqffad 83-11-1356Tzkyxzpghmn Nephelometry [Mass/Vol]613 mg/nDQvqx20 - 228 mg/dLSt. Rita's HospitalHaptoglobin Nephelometry [Mass/Vol]on 80-01-5049Yszkggdaysgixw and review of laboratory resultsAbnormal [facility] Valley HospitalHAPTOGLOBIN613 mg/kDRrmt17-273 Medina HospitalComment on above:Performed By: #### CBCA, CMP, 1987-12, FEPR, 2276-4, 4-8, 75789-9, 9, 48237-4, 56019-5, 5130-0, 24464-0, 96793- 6, 76987-8, 3357-1, 8092-9, 22840-0, 80134-2, 38590-4, 58534-5, 33282-6 #### [facility] ([id number]) [address] [place] [address], [address] [place], [place] [address]Vidxddqsi panel, acuteon 67-95-0776HXP IgM IA QlNon-Reactive Non-Reactive^Non-ReactiveProBlanchard Valley Health System SystemHBV core IgM IA QlNegative Negative^NegativeProBlanchard Valley Health System SystemHBV surface Ag IA QlNegative Negative^NegativeProBlanchard Valley Health System SystemHCV Ab IA QlNon-Reactive Non-Reactive^Non-ReactiveFulton County Health Center SystemComment on above: If recent infection suspected, recommend repeat testing (>2 months). Ibcvua-ri-sfeiqd ratio is <0.80. [facility] SystemHomocysteine [Moles/Vol]on 78-18-3059QQLVBHHSTTAS5.29 mcmol/LNormal3.36-20.44Medina HospitalComment on above:Performed By: #### CBCA, CMP, 1987-12, FEPR, 6-4, 2284-8, 30684-2, 2131-9, 53948-2, 64991-4, 5130-0, 50574-4, 72235-9, 63580-8, 3357-1, 8092-9, 30281-5, 20664-1, 80255-5, 47318-1, 72581-8 #### [facility] ([id number]) [address] [place] [address], [address] [place], [place] [address]PkoMjziln Health SystemHomocysteine totalon 09-23-2023 Homocysteine [Moles/Vol]9.29 umol/LProMedica Health SystemIMMUNOELECTROPHORESIS FOR THERAPY MONITORINGon 85-06-4662FKPW KECIA/LAMBD RATIO1.80Etsnlg1.26-1.65 Medina HospitalComment on above:Performed By: #### CBCA, CMP, 1987-12, FEPR, 2276-4, 2284-8, 67706-5, 2132-9, 43039-0, 11962-6, 5130-0, 43783-3, 74988- 6, 23213-7, 3357-1, 8092-9, 91002-1, 76805-6, 59889-5, 53990-8, 36042-9 #### [facility] ([id number]) [address] [facility], [address] [place], [place] [address]KCLC KAPPA LT CHAINS2.91 mg/dLHigh0.33-1.94ProMercy Memorial HospitalComment on above:Performed By: #### MICHAEL, CMP, 1987-12, FEPR, 2275-4, 2283-8, 63188-5, 2131-9, 69095-8, 53214-0, 5130-0, 76759-5, 96604-6, 64491-5, 3357-1, 8092-9, 20610-2, 04460-3, 17806-6, 00887-5, 35368-4 #### [facility] ([id number]) [address] [place] [address], [address] [place], [place] [address]VUDJ LAMBDA LT CHAINS2.38 mg/dLNormal0.57-2.63ProMercy Memorial HospitalComment on above:Performed By: #### MICHAEL, CMP, 1987-12, FEPR, 2275-4, 2283-8, 98495-3, 2131-9, 50966-5, 37397-8, 5130-0, 45043-0, 38112-3, 51925-3, 3357-1, 8092-9, 35908-5, 53882-9, 26073-4, 17475-5, 17796-6 #### [facility] ([id number]) [address] [place] [address], [address] [place], [place] [address]SlN [Mass/Vol]180 mg/iETbdfdl88-491DisNtmidh [facility] Comment on above:Performed By: #### CBCA, CMP, 1987-12, FEPR, 2276-4, 2284-8, 59539-8, 2132-9, 57814-7, 15346-4, 5130-0, 55977-4, 06199-4, 47859-4, 3357-1, 8092-9, 24093-9, 27866-0, 79756-8, 32795-6, 26952-0 #### [facility] ([id number]) [address] [facility] [facility], [address] [place], [place] [address]HhT [Mass/Vol]992 mg/gKRhgtot843-7687RluZfbhtw[address] [place] [address] Comment on above:Performed By: #### MICHAEL, CMP, 1987-12, FEPR, 2275-4, 2283-8, 63479-9, 2132-9, 65979-4, 36972-7, 5130-0, 63025-0, 31292-8, 68607-3, 3357-1, 8092-9, 61941-5, 97246-9, 89345-1, 74442-8, 20223-9 #### [facility] ([id number]) [address] [facility], [address] [place], [place] [address]WpO [Mass/Vol]285 mg/yYMgxr73-622IkoSsfbojMedina Hospital Comment on above:Performed By: #### MICHAEL, KELVIN, 1987-12, FEPR, 2275-4, 2283-8, 01319-9, 2132-9, 94706-3, 28636-7, 5130-0, 61085-1, 66545-7, 36757-9, 3357-1, 8092-9, 92836-2, 35352-9, 38004-7, 35154-6, 81383-3 #### [facility] ([id number]) [address] [facility], [address] [place], [place] [address]MVPZXJ PROFILE INTERPSEE SEPARATE REPORTNormalProMercy Memorial HospitalComment on above:Performed By: #### CBCMarisol, CMP, 1987-12, FEPR, 2275-4, 2284-8, 95750-8, 2132-9, 45364-2, 51216-5, 5130-0, 40728-8, 02025-5, 49748-9, 3357-1, 8092-9, 18198-2, 32426-5, 96397-0, 42130-6, 30429-2 #### [facility] ([id number]) [address] [place] [address], [address] [place], [place] [address]ZDLC PROFILEon 61-61-3384Phob [Mass/Vol]25 ug/eQRiz67-549 ProMSalem Regional Medical CenterComment on above:Performed By: #### KELVIN RODRIGUEZ, 1987-12, FEPR, 2275-4, 4-8, 39030-1, 2132-9, 70364-6, 75305-6, 5130-0, 72308-1, 50145- 6, 45945-2, 3357-1, 8092-9, 98645-4, 80175-0, 17837-0, 87081-9, 05425-7 #### [facility] ([id number]) [address] [place] [address], [address] [place], [place] [address]OMAW ZKKYIHG162 ug/yBQmk633-173EhtDdsngsMercy Memorial HospitalComment on above:Performed By: #### KELVIN RODRIGUEZ, 1987-12, FEPR, 2275-, 2283-8, 42989-6, 2132-9, 11685-8, 95337-3, 5130-0, 80277-3, 91640-5, 39734-9, 3357-1, 8092-9, 91910-0, 48165-8, 68347-5, 81813-6, 85473-2 #### [facility] ([id number]) [address] [place] [address], [address] [place], [place] [address]OQOW SOSEDEYRNF10 % OUKWAKDNQIMxf56-81IbcMsmtqm [facility] Comment on above:Performed By: #### KELVIN RODRIGUEZ, 1988-5, FEPR, 2276-4, 2284-8, 94655-5, 2132-9, 67723-9, 22988-6, 5130-0, 46772-5, 46646-4, 94008-0, 3357-1, 8092-9, 03372-8, 24507-3, 72253-7, 10717-5, 26806-2 #### [facility] ([id number]) [address] [facility], [address] [place], [place] [address]Apfc and TIBCon 71-67-2584Bchgwykiohjwxh and review of laboratory resultsAbnormalProMedica Health SystemIron [Mass/Vol]25 ug/dLLow50 - 170 ug/dLProMedica Health SystemIron binding capacity [Mass/Vol]179 ug/nIWna313 - 425 ug/dLProMedica Health SystemIron saturation [Mass fraction]14LowProSouthwest Health Center SystemJAK2 gene p.Wiw955Gwg Molgen Ql (Bld/Tiss)on 61-27-5410JPO3 V617F MUTATION, BLOODSEE COMMENTS 09/26/2023 10:21 AMNormal ProMedicOhioHealth Grady Memorial HospitalComment on above:Result Comment: NOTE Test Result Flag Unit RefValue JAK2 V617F Mutation Detection, B JAK2 Result see interpretation JAK2 V617F Mutation Detection, B See Note Peripheral blood, JAK2 V617F mutation analysis: Negative for JAK2 V617F. A negative FLF3O912B test result does not exclude the possibility [...] assay has been determined at 0.06% (see [facility] Interpretive Handbook for method details). This test was developed and its performance characteristics determined by [facility] in a manner consistent with CLIA requirements. This test has not been cleared or approved by the U.S. Food and Drug Administration. Test Performed by: [place] [address] Emergency Room Physician: Thierry Duran M.D. Ph.D.; CLIA# [id number] By: #### CBCA, CMP, 1987-12, FEPR, 2275-4, 2283-8, 51421-0, 2131-9, 11429-3, 62368-5, 5130-0, 06334-5, 16524-7, 95605-6, 3357-1, 8092-9, 00161-1, 11520-1, 35061-6, 18593-3, 43997-8 #### [facility] ([id number]) [address] [place] [address], [address] [place], [place] [address]Em 1 AB IGGon 64-41-1756Yizbafujhjt Ql (U)NINSumma Health Akron Campus SystemLDHon 92-52-7379RLB [Catalytic activity/Vol]140 U/L100 - 235 U/LProMedica Health SystemLDH [Catalytic activity/Vol]on 24-42-7489QtdXszacf Health SystemSHRINERS HOSPITALS FOR CHILDREN 140 U/VXwpzrs355-647KphAxswpl Middletown HospitalComment on above:Performed By: #### CBCA, CMP, 1987-12, FEPR, 2276-4, 2284-8, 69836-3, 2131-9, 36407-4, 51067-7, 5130-0, 19307-6, 70144-8, 32531-8, 3357-1, 8092-9, 42072-4, 50187-3, 56537-8, 29780-9, 14983-1 #### [facility] ([id number]) [address] [facility], [address] [place], [place] [address]Ghayihgfdgsygd [Moles/Vol]on 39-65-6490NCT QN0.23 umol/LNormal <=0.40ProMercy Memorial HospitalComment on above:Result Comment: NOTE This test was developed and its performance characteristics determined by [facility]'s [facility] HospitalMoises [facility] [place] ([facility]ENTERPLCA). It has not been cleared or approved by the FDA. -[facility] is regulated under CLIA as qualified to perform high-complexity testing. This test is used for clinical purposes. It should not be regarded as investigational or for research. Test Performed By: [place] [address] Product Marketing Specialist: Meño Hernandez III, M.D. CLIA #[id number] diagnostic report Molgen Yaw (Bld/Tiss) [Interp]on 87-59-6116BIL/ABL PCR w/ReflexSEE COMMENTS 09/25/2023 04:24 PMNormalProMercy Memorial HospitalComment on above:Result Comment: NOTE Test Result Flag Unit RefValue BCR/ABL1 Reflex, Qual/Quant Specimen Type EDTA WHOLE BLOOD BCR/ABL1 Reflex Result see interpretation Interpretation See Note Peripheral blood, BCR/ABL1 mRNA analysis, qualitative: Negative. No BCR/ABL1 mRNA transcripts were detected. Method summary: The presence or absence of BCR/ABL1 mRNA transcripts was evaluated using a qualitative, reverse apartment maintenance PCR-based assay. The assay detects nearly all published and theoretical BCR/ABL1 fusion forms including the common e13/e14-a2 (p210) and e1-a2 (p190) transcripts, as well as other rarer variants (e.g. e19-a2 (p230), e13/e14-a3, e1-a3, etc.). The limit of detection for this assay is 0.1%. Please contact the lab at [phone] with questions or if additional testing is required. See [facility] [employer] Test Catalog for additional method details. Signing Pathologist: Ammon Titus M.D. (Jane), Ph.D. ADDITIONAL INFORMATION This test was developed and its performance characteristics determined by [facility] in a manner consistent with CLIA requirements. This test has not been cleared or approved by the U.S. Food and Drug Administration. Test Performed by: [place] [address] Emergency Room Physician: Thierry Duran M.D. Ph.D.; CLIA# [id number] cytoplasmic Ab IF Ql (S)on 23-43-1268DTMSOhp BelowCooper County Memorial HospitalalJ.W. Ruby Memorial Hospitalca [place]let[place] HospitalComment on above:Result Comment: NOTE TEST RESULT FLAG UNIT REF.RANGE C-ANCA by Immunofluorescence Negative Negative P-ANCA by [...] results and clinical correlation. Test Performed By: [facility] [employer] [address] [place] [address] Product Marketing Specialist: Meño Hernandez III, M.D. [place] #[id number] Panel Informationon 66-74-0753ArfErpatwAspirus Riverview Hospital and ClinicsInterpretation and review of laboratory resultsAbAmerican Academic Health SystemNuclear Ab IA Ql (S)on 97-86-8973Pbytplrpqmubcf and review of laboratory resultsAbnoal [facility]heny Valley HospitalANA Screen w/reflexPositive AbnormalNEGTrinity Health System on above:Result Comment: Testing performed using multiplex flow immunoassay. Eleven different antigens associated with systemic autoimmune diseases (dsDNA,Sm,Sm/SCOOP FILLER,SCOOP FILLER,Chromatin, SSA,SSB,Tiki-1,Scl70,Ribo P,Centromere B) are included in this screening test.Performed By: #### CBCA, CMP, 1988-5, FEPR, 2276-4, 2284-8, 16429-9, 2132-9, 99188-9, 64127-2, 5130-0, 30725-8, 73623-3, 13048-3, 3357-1, 8092-9, 35630-8, 76645-8, 27647-1, 58162-1, 18910-5 #### [facility] ([id number]) [address] [place] [address] [address] [place], [place] [address]Vculljtfugm review Pathologist comment (Bld) [Interp]on 97-44-2455BHCDX REVIEWNOTENoMagruder Memorial Hospital on above:Result Comment: [employer] [facility] [address] [place] [address] Clinical Pathology Report Patient Name:JOSE DAVID:1945 (Age: 78)Gender:FTaken:4Reported:09/26/2023hysician(s):Tono Pan M.D. ([phone])Copy To: Rec. #:[id number]: #[id number] Final Pathologic Diagnosis Peripheral blood smear: Neutrophilic [...] Out hna/09/26/2023Og Martinez M.D. Interpretation performed at [facility], [address] [place] [address], License number: [id number]. Clinical History R29.9. BLOOD SMEAR EVALUATION CBC (09/23/2023 0818): WBC = 12.1 X10E9/L; HGB = 9.1 g/dL; HCT = 27.8%; MCV = 85 fL; PLT = 924 X10E9/L OTHER LAB DATA: Noncontributory. BLOOD SMEAR: Leukocytes: Neutrophilic leukocytosis with cytotoxic changes and lymphocytopenia. Erythrocytes: Moderate normocytic normochromic anemia. Platelets: Thrombocytosis. Specimen(s) Received Blood Smear Review Fee Codes(s): 1; 71349Frlkzysdy By: #### CBCA, CMP, 1988-5, FEPR, 2276-4, 2284-8, 11530-3, 2132-9, 18920-6, 78613-6, 5130-0, 50492-1, 89340-8, 57277-6, 3357-1, 8092-9, 10249-8, 68382-7, 64553-0, 15740-5, 56847-8 #### [facility] ([id number]) [address] [place] [address], [address] [place], [place] [address]HMM AB IgGon 83-38-2100Khrqibbkihtmzwqws extractable nuclear IgG Qn (S)Sent[facility] RMH Medical CenterComment on above:CLIA ID [id number] factoron 66-24-4253Iucbeigjbn factor Nephelometry Qn (S)21HighNINFProDayton Va Medical CenterRheumatoid factor Nephelometry Qn (S)on 06-15-4389Oaqvblsafqqyhg and review of laboratory resultsAbnormalAllegheny Valley HospitalRHEUMATOID LDDONB97 IU/mLHigh<20Medina HospitalComment on above: Performed By: #### MICHAEL, KELVIN, 1987-12, FEPR, 2275-4, 2283-8, 54942-5, 2131-9, 21968-5, 53793-4, 5130-0, 30453-1, 89677-5, 43123-7, 3357-1, 8092-9, 27732-8, 98805-3, 24609-0, 82990-9, 97425-2 #### [facility] ([id number]) [address] [place] [address], [address] [address]Lfhwlzvdgndmyqckh extractable nuclear IgG Qn (S)on 95-05-9872PLI ANTIBODY IGG<0.2Normal<1.0ProMercy Memorial HospitalComment on above:Performed By: #### KELVIN RODRIGUEZ, 1987-12, FEPR, 2275-4, 2283-8, 69704-9, 9, 04397-4, 26492-2, 5130-0, 31565-5, 69570-6, 51814-2, 3357-1, 8092-9, 12931-2, 88522-5, 41481-3, 94595-3, 87438-7 #### [facility] ([id number]) [address] [place] [address], [address] [place], [place] [address]Lxjrdikxf P IgG Qn (S)on 85-00-0262OMWDCYUW P ANTIBODY<0.2Normal <1.0ProMercy Memorial HospitalComment on above:Performed By: #### KELVIN RODRIGUEZ, 1987-12, FEPR, 2275-, 2283-8, 34828-9, 2132-9, 47908-0, 06989-3, 5130-0, 02125- 7, 84353-7, 83936-9, 3357-1, 8092-9, 50763-9, 05683-0, 67802-4, 70209-7, 52329-3 #### [facility] ([id number]) [address] [facility], [address] [place], [place] [address]DDH-88 extractable nuclear Ab Ql (S)on 99-20-6299WDA 70 ANTIBODY <0.2Normal<1.0ProMercy Memorial HospitalComment on above:Performed By: #### CBCA, CMP, 1987-12, FEPR, 2275-4, 228-8, 15453-7, 2131-9, 22647-4, 93737-3, 5130-0, 63245-2, 16145-5, 36844-5, 3357-1, 8092-9, 98103-7, 84645-8, 75999-2, 89267-5, 37471-4 #### [facility] ([id number]) [address] [place] [address], [address] [place], [place] [address]BPCPZ PROTEIN ELECTROPHORESISon [id number] [Mass/Vol]2.5 g/dLLow3.4-5.3ProMedAshtabula General HospitalComment on above:Performed By: #### CBCA, CMP, 1987-12, FEPR, 2275-4, 4-8, 25585-7, 2131-9, 01708-5, 28401-8, 5130-0, 47060-1, 40288-5, 50022-9, 3357-1, 8092-9, 80431-0, 84207-9, 27984-1, 76402-4, 48248-1 #### [facility] ([id number]) [address] [place] [address], [address] [place], [place] [address]SSYTT 1 GLOBULIN0.6 g/dLHigh0.1-0.4ProMer[facility] Comment on above:Performed By: #### MICHAEL, KELVIN, 1986-12, FEPR, 2276-4, 2284-8, 11047-7, 2132-9, 76189-0, 53319-6, 5130-0, 79181-6, 08366-4, 47643-1, 3357-1, 8092-9, 03846-9, 99379-6, 36582-9, 21432-6, 53570-6 #### [facility] ([id number]) [address], [address] [place], [place] [address]PQXOE 2 GLOBULIN1.2 g/dLHigh0.4-1.1PWooster [facility] Comment on above:Performed By: #### MICHAEL, KELVIN, 1986-12, FEPR, 2275-4, 2284-8, 69062-8, 2132-9, 38207-7, 14042-1, 5130-0, 37972-3, 35977-7, 08575-3, 3357-1, 8092-9, 64891-5, 83620-0, 96887-5, 68468-3, 72607-5 #### [facility] ([id number]) [address], [address] [place], [place] [address]BRPD GLOBULIN0.8 g/dLNormal0.5-1.2PWooster Community Hospital Comment on above:Performed By: #### MICHAEL, KELVIN, 1986-12, FEPR, 2275-4, 2284-8, 15513-3, 2132-9, 90710-6, 57088-3, 5130-0, 00542-7, 97075-8, 94310-3, 3357-1, 8092-9, 91919-7, 86369-9, 93436-2, 54330-6, 01416-5 #### [facility] ([id number]) [address], [address] [place], [place] [address]ZGQCS GLOBULIN1.0 g/dLNormal0.5-1.6[facility] Comment on above:Performed By: #### MICHAEL, KELVIN, 1986-12, FEPR, 2276-4, 2284-8, 91854-6, 2132-9, 63962-8, 41648-6, 5130-0, 34454-4, 68976-4, 90559-8, 3357-1, 8092-9, 96762-2, 79844-4, 15006-6, 64605-0, 98739-9 #### [facility] ([id number]) [address] [place] [address], [address] [place], [place] [address]IENH. ELECTROPHORESIS INTERPSEE SEPARATE REPORTNormalProMercy Memorial HospitalComment on above:Performed By: #### MICHAEL, KELVIN, 1986-12, FEPR, 2276-4, 2284-8, 53450-7, 2132-9, 57379-5, 76530-6, 5130-0, 35661-4, 05324-0, 13504-4, 3357-1, 8092-9, 38087-4, 94065-9, 45359-3, 93514-9, 82625-8 #### [facility] ([id number]) [address] [place] [address], [address] [place], [place] [address]Lfufqzn [Mass/Vol]6.1 g/dLNormal6.0-8.0[facility] Comment on above:Performed By: #### KELVIN RODRIGUEZ, 1986-12, FEPR, 2275-4, 2284-8, 55147-2, 2132-9, 26977-5, 88348-3, 5130-0, 39987-9, 29325-5, 58362-5, 3357-1, 8092-9, 57209-0, 73536-1, 21283-2, 53486-6, 38996-9 #### [facility] ([id number]) [address] [place] [address], [address] [place], [place] [address]VMC antibodyon 17-87-0087Wiikvxmq syndrome-A extractable nuclear Ab Qn (S)[facility] CenterComment on above:CLIA ID [id number] Antibodyon 26-49-6263Ciyyasrp syndrome-B extractable nuclear IgG Qn (S)[facility] HospitalComment on above:CLIA ID [id number] antibodyon 27-36-3402XVZ-70 extractable nuclear Ab Ql (S)[facility] Comment on above:CLIA ID [id number] syndrome-A extractable nuclear Ab Qn (S)on 59-96-1985NWQ ANTIBODY<0.2Normal<1.0ProMercy Memorial HospitalComment on above:Performed By: #### CBCMarisol, CMP, 1987-12, FEPR, 2276-4, 2284-8, 53983-2, 2132- 9, 56528-6, 32220-7, 5130-0, 93879-7, 78943-2, 83318-2, 3357-1, 8092-9, 14079-4, 25490-8, 85551-0, 07570-4, 17969-9 #### [facility] ([id number]) [address] [place] [address], [address] [place], [place] [address]Artbgmue syndrome-B extractable nuclear IgG Qn (S)on 09-23-2023 SSB ANTIBODY<0.2Normal<1.0ProMercy Memorial HospitalComment on above:Performed By: #### CBCA, CMP, 1987-12, FEPR, 2276-4, 2284-8, 20836-0, 2132-9, 99538-5, 09083-9, 5130-0, 33871-0, 54743-4, 99890-2, 3357-1, 8092-9, 16175-7, 33711-4, 86571-9, 59670-6, 40432-2 #### [facility] ([id number]) [address] [place] [address], [address] [place], [place] [address]Zoppq extractable nuclear Ab+Ribonucleoprotein extractable nuclear IgG Qn (S)on 90-41-9195KFGGC/SCOOP FILLER AB IGG<0.2Normal<1.0ProMercy Memorial HospitalComment on above:Performed By: #### CBCA, CMP, 1987-12, FEPR, 2276-4, 2284-8, 84585-3, 2132-9, 50669-3, 59520-6, 5130-0, 02402-2, 52115-5, 45605-5, 3357-1, 8092-9, 07529-0, 28705-6, 58060-0, 94527-5, 17971-5 #### [facility] ([id number]) [address] [place] [address], [address] [place], [place] [address]Ivbhu extractable nuclear IgG Qn (S)on 14-59-6698RRNM-MEJIA AB IGG<0.2Normal<1.0ProMercy Memorial HospitalComment on above:Performed By: #### CBCA, CMP, 1987-12, FEPR, 2276-4, 2284-8, 26616-5, 2132-9, 74224-1, 54950-3, 5130-0, 33806-8, 86775-5, 35142-1, 3357-1, 8092-9, 12299-9, 39511-6, 55067-4, 43681-3, 03247-3 #### [facility] ([id number]) [address] [place] [address], [address] [place], [place] [address]Ajihu/SCOOP FILLER AB IgGon 79-39-5112Qjkgt extractable nuclear Ab+Ribonucleoprotein extractable nuclear IgG Qn (S)[facility] Surgical Pathologyon 49-91-9291Zgsubvzu PathologyNormalMedina Hospital Comment on above:Result Comment: [facility] [address], [place] [address] Flow Cytometry Patient Name:JOSE DAVIDAccession #:[id number]. Rec. #:[id number]:[facility] HospitalTaken:09/23/2023OB:1945 (Age: 78)Location:TTH GEN 8 ACUTE O873Ledrzbkv:09/23/2023Gender: FBill. Type:ToledoReported:Priority:RBilling #:[id number] Class:TTH Special Procedure OnlyPhysician(s):Charlene Chan MD Rabia Zubair, M.D. Ahmed Elsayed, [...] patterns of antigen expression are not seen. Edgar on the lymphoid population demonstrates a mixed population of phenotypically unremarkable T-cells, natural killer cells, and polyclonal B- cells, without a detectable monoclonal population. Immunophenotyping antibodies tested: CD2, CD3, CD4, CD5, CD7, CD8, CD10, CD13, CD16, CD19, CD20, CD23, CD33, CD34, CD38, CD43, CD45, CD56, CD117, CD123, CD138, [place], and [place]. Immunophenotyping Comment: Immunophenotyping has been used in this diagnostic evaluation. This test was developed and its performance characteristics determined by the [facility]. It has not been [...] testing. Electronically Signed Out ht/09/23/2023 Wm Camacho MDVITAMIN B12on 47-86-8453Mqmojavoc (Vitamin B12) [Mass/Vol]248 pg/oRPfumdw829-815YgoBxeqhf Valle HospitalComment on above: Performed By: #### CBCA, CMP, 1987-, FEPR, 2276-4, 2284-8, 31854-8, 2132-9, 70331-0, 91926-1, 5130-0, 82132-6, 94594-5, 42225-5, 3357-1, 8092-9, 94330-4, 93157-8, 61678-8, 94881-2, 81587-2 #### [facility] ([id number]) [address] [place] [address], [address] [place], [place] [address]Wdejjcm B12on 32-74-2407Irukiedjj (Vitamin B12) [Mass/Vol]248 pg/mL180 - 914 pg/mLSt. Rita's HospitaldRVVT/dRVVT.excess phospholipid Coag (PPP) [Ratio]on 57-42-7313LQLVKA KORI'S VIPER VENOMNegativeNormalProMercy Memorial HospitalComment on above:Performed By: #### MICHAEL, CMP, 1987-12, FEPR, 2276-4, 2284-8, 81855-1, 2132-9, 55640-6, 14475-0, 5130-0, 43945-7, 11538-3, 49321-8, 3357-1, 8092-9, 84967-0, 43496-7, 87718-1, 73664-9, 23080-9 #### [facility] ([id number]) [address] [place] [address], [address] [place], [place] [address]IV CSPINE WO CONon 96-47-7382IX CSPINE WO CONEXAM: CT scan of the cervical spine without [...] Electronically authenticated by: SHANTELL GARCIA Date: 2022-12-25 08:22[facility] HospitalXR KNEE RT 4V or >on 56-78-7284GR KNEE RT 4V or >IMAGES REVIEWED: XR KNEE RT 4V or > COMPARISON: None available. CLINICAL INDICATION: Acute pain after a fall. FINDINGS/IMPRESSION: 1. No evidence of acute osseous abnormality of the right knee. 2. No significant joint effusion. 3. Advanced osteoarthritis of the right knee, particularly involving the lateral and patellofemoral compartments where there is urdk-dg-nedt contact. 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 Electronically authenticated by: KARAN JENKINS Date: 2022-04-25 19:06[facility] HospitalPatient Educationon 54-07-0044Somypel EducationNutrition BMI for Adults Body mass index (BMI) [...] problems. It is used to check whether aperson is obese, overweight, healthy weight, or underweight. How is BMI calculated? BMI measures your weight and compares it to your height. This can be done either in Mauritian ([place] or metric measurements. Note that charts are available to help you find your BMI quickly and easily without having to do these calculations yourself. To calculate your BMI in Mauritian ([place].S[place] measurements, your health care provider will: [...] meters squared number. In this example: 70 ?3.1 = 22.6. This is your BMI. How [...] a medical condition, or that may increase therisk for medical problems. ? Promoting lifestyle and [...] problems. ? BMI can be measured using Mauritian measurements or metric measurements. ? To interpret [...] 04/22/2005 Document Revised: 07/24/2018 Document Reviewed: 06/24/2018 [facility] Patient Education ? 2019 [employer]. Obstetrics and Gynecology Overactive Bladder, Adult Overactive [...] You may also have very sensitive muscles thatmake your bladder squeeze too soon. These symptoms [...] from: ? A spina (more content not included)...[facility] 49-93-8407HXZ - [id number]:127 [facility] [id number]:127NoOhio State Health SystemUrology Office/Clinic Noteon 85-74-4529Cahiepi Office/Clinic NoteChief Complaint 1 year f/u w/KUB HPI Staff [...] denies hematuria, denies discharge, denies urinary frequency, deniesurinary hesitancy, denies nocturia, moderate incontinence, denies genital [...] genitourinary system) Interesting patient still working at [employer] which came here the store when I said the KUB is negative he had no stones this patient here for no history no colic. She gets a lot of lower tractUTI with once a year or less treated easily with the Cipro type of medication as she is allergic to penicillin. The urine is clear today there is no urological complaints. Told her at her age with nosymptoms I would see her as needed if she develops pain or problems ER or call me so I will see patient as needed Follow-up With When Contact Information DONY SENIOR, Gilbert Moore, URL Within 1 year, only if needed [address] [place], [place] [address]- Additional Instructions: Patient Education BMI for Adults [...] Protein Urine Dipstick: Negative (09/10/21 08:26:00) Specific [place] Urine Dipstick: 1.025 (09/10/21 08:26:00) Urine Appearance Urine Dipstick: Clear (09/10/21 08:26:00) Urine Color Urine Dipstick: Yellow (09/10/21 08:26:00) Urobilinogen Urine Dipstick: Normal 0.2-1 EU/dl (09/10/21 08:26:00) pH Urine Dipstick: 5 (09/10/21 08:26:00)[facility] Doctors HospitalComment on above:Result Comment: Electronically Signed By: Gilbert NAPOLES MD\.br\Date and Time Signed: 09/10/21 08:49 EST\.br\Electronically Co-Signed By: Aurora Hdz MA\.br\Date and Time Co-Signed: 09/10/21 08:46 ESTPhysician Orderon 09-07-2021 Physician [id number]:127NoOhio [facility] System Vital Signs Date TimeVital SignValuePerforming EkiinkimaBvsupcke92-95-8218 09:33-0400Body bdckyh737.5 cmChasity Samy SCHMITTN-SENIOR CORE JAVA DEVELOPER Work Phone: [facility]10-20-2025 09:33-0400Body mass index (BMI) [Ratio]27.17 kg/i3Aizbiov Samy SCHMITTN-SENIOR CORE JAVA DEVELOPER Work Phone: [facility] [employer] Zillgr74-36-2097 09:33-0400Body lupkigznqub34.2 [degF]Myra Samy VP PURCHASING-SENIOR CORE JAVA DEVELOPER Work Phone: [facility] Hospital[facility]10-20-2025 09:33-0400Body oausal39.41 kgChasity Samy VP PURCHASING-SENIOR CORE JAVA DEVELOPER Work Phone: [facility]10-20-2025 09:33-0400Diastolic blood ynzailtk27 mm[Hg]Myra Samy VP PURCHASING-SENIOR CORE JAVA DEVELOPER Work Phone: [facility]10-20-2025 09:33-0400Heart rate 89 /minChasity Samy SCHMITTN-SENIOR CORE JAVA DEVELOPER Work Phone: [facility]10-20-2025 09:33-0400 Respiratory rate16 /minChasity Samy SCHMITTN-SENIOR CORE JAVA DEVELOPER Work Phone: [facility]10-20-2025 09:33-1441QxC9% (BldA) [Mass fraction]98 %Myra Samy SCHMITTN-SENIOR CORE JAVA DEVELOPER Work Phone: [facility]10-20-2025 09:33-0400Systolic blood rtrbercr553 mm[Hg]Myra Samy SCHMITTN-SENIOR CORE JAVA DEVELOPER Work Phone: [facility]09-29-2025 09:43-0400Body ryucly850.4 cmGiovanna Graf VP PURCHASING Work Phone: [facility]09-29-2025 09:43-0400 Body mass index (BMI) [Ratio]28.5 kg/r7BcmxhuqwGiovanna Graf VP PURCHASING Work Phone: [facility]09-29-2025 09:43-0400 Body jdlsuwpxspl13.9 [degF]Giovanna Graf VP PURCHASING Work Phone: [facility]09-29-2025 09:43-0400 Body acxpqt61.22 kgGiovanna Graf VP PURCHASING Work Phone: [facility]09-29-2025 09:43-0400 Diastolic blood hupdrfcs57 mm[Hg]Giovanna Graf VP PURCHASING Work Phone: [facility]09-29-2025 09:43-0400 Heart rate86 /minGiovanna Graf VP PURCHASING Work Phone: [facility]09-29-2025 09:43-0400 SaO2% (BldA) [Mass fraction]97 %Giovanna Alanisrbacher VP PURCHASING Work Phone: [phone]09-29-2025 09:43-0400 Systolic blood memjrvth117 mm[Hg]Giovanna Lesia VP PURCHASING Work Phone: [phone]09-23-2025 13:19-0400 Body .4 cmGiovanna Alanismirandaadriaancosme VP PURCHASING Work Phone: [phone]09-23-2025 13:19-0400 Body mass index (BMI) [Ratio]29.2 kg/g3TwylcyipGiovanna Alanismirandaadrianacosme VP PURCHASING Work Phone: [phone] [place], [place] [address]2209-23-2025 13:19-0400 Body volzlqwniue49.6 [degF]Igovanna Lesia VP PURCHASING Work Phone: [phone] [place], [place] 2842209-23-2025 13:19-0400 Body .03 kgGiovanna Alanismirandaadrianacosme VP PURCHASING Work Phone: [phone]09-23-2025 13:19-0400 Diastolic blood qazogfps04 mm[Hg]Giovanna Lesia SCHMITTN Work Phone: [phone]09-23-2025 13:19-0400 Heart rate83 /minGiovanna Alanismirandaadrianacosme VP PURCHASING Work Phone: [phone] [place], [place] 2842209-23-2025 13:19-0400 SaO2% (BldA) [Mass fraction]94 %Giovanna Lesia VP PURCHASING Work Phone: [phone]09-23-2025 13:19-0400 Systolic blood epeglahj491 mm[Hg]Giovanna Lesia SCHMITTN Work Phone: [phone] [place], [place] [address]6-02-2025 09:48-0400 Body osxgnx246.5 cmChasity Samy MONDRAGON Work Phone: [facility]06-02-2025 09:48-0400Body mass index (BMI) [Ratio]25.27 kg/f6Jjjbhgw Samy HUANG-SENIOR CORE JAVA DEVELOPER Work Phone: [facility]06-02-2025 09:48-0400Body uktmsguaqbo92.01 [degF]Myra Samy SCHMITTN-SENIOR CORE JAVA DEVELOPER Work Phone: [facility]06-02-2025 09:48-0400Body kykrcp63.69 kgChasity Samy SCHMITTN-SENIOR CORE JAVA DEVELOPER Work Phone: [facility]06-02-2025 09:48-0400Diastolic blood gyqahgxj23 mm[Hg]Myra Samy SCHMITTN-SENIOR CORE JAVA DEVELOPER Work Phone: [facility]06-02-2025 09:48-0400Heart rate 90 /minChasity Samy SCHMITTN-SENIOR CORE JAVA DEVELOPER Work Phone: [facility]06-02-2025 09:48-0400 Respiratory rate16 /minChasity Samy SCHMITTN-SENIOR CORE JAVA DEVELOPER Work Phone: [facility]06-02-2025 09:48-0998TmB4% (BldA) [Mass fraction]98 %Myra Samy SCHMITTN-SENIOR CORE JAVA DEVELOPER Work Phone: [facility]06-02-2025 09:48-0400Systolic blood vpsqfhea411 mm[Hg]Myra Samy SCHMITTN-SENIOR CORE JAVA DEVELOPER Work Phone: [facility]04-24-2025 13:54-0400Body bhslpi119.4 cmUniversity [facility]04-24-2025 13:54-0400Body mass index (BMI) [Ratio]26.5 kg/x3OywznycpfUniversity Hospitals Lake [facility] Center04-24-2025 13:54-0400Body ozqizihshmo23.3 [degF][facility]04-24-2025 13:54-0400Body yabctw60.68 kgUniversity [facility]als [facility]04-24-2025 13:54-0400Diastolic blood mm[Hg][facility] 12-16-2024 13:54-0400Heart uzib825 /[facility] 12-16-2024 13:54-1977KmR2% (BldA) [Mass fraction]97 %[facility]04-24-2025 13:54-0400Systolic blood cwasyzbb788 mm[Hg][facility]02-19-2025 14:35-0500Body fbjuhv876.4 cmUniversity [facility]02-19-2025 14:35-0500Body mass index (BMI) [Ratio]26.4 kg/v6YbhgicikaUniversity Hospitals Lake West Medical Center02-19-2025 14:35-0500Body jhsmhmzyrcl98 [degF][facility]02-19-2025 14:35-0500Body ufhflx06.46 kgUniversity [facility]als [facility]02-19-2025 14:35-0500Diastolic blood yfevrira11 mm[Hg] [facility]02-19-2025 14:35-0500Heart rate82 /[facility]02-19-2025 14:35-5389NgU2% (BldA) [Mass fraction]97 % [facility]02-19-2025 14:35-0500Systolic blood ktihzjsj338 mm[Hg][facility]02-17-2025 09:31-0500Body wvvqid957.5 cm Myra Samy HUANG-SENIOR CORE JAVA DEVELOPER Work Phone: [facility]02-17-2025 09:31-0500Body mass index (BMI) [Ratio]24.58 kg/l9Watvpud Samy SCHMITTN-SENIOR CORE JAVA DEVELOPER Work Phone: [facility]02-17-2025 09:31-0500Body lrwzlbburhy93.81 [degF]Myra Samy SCHMITTN-SENIOR CORE JAVA DEVELOPER Work Phone: [facility]02-17-2025 09:31-0500Body dwwlni49.96 kgChasity Samy SCHMITTN-SENIOR CORE JAVA DEVELOPER Work Phone: [facility]02-17-2025 09:31-0500Diastolic blood ogptrche28 mm[Hg]Myra Samy SCHMITTN-SENIOR CORE JAVA DEVELOPER Work Phone: [facility]02-17-2025 09:31-0500Heart rate 76 /minChasity Samy VP PURCHASING-SENIOR CORE JAVA DEVELOPER Work Phone: [facility]02-17-2025 09:31-0500 Respiratory rate18 /minChasity Samy VP PURCHASING-SENIOR CORE JAVA DEVELOPER Work Phone: [facility]02-17-2025 09:31-7375FrD1% (BldA) [Mass fraction]100 %Myra Samy VP PURCHASING-SENIOR CORE JAVA DEVELOPER Work Phone: [facility]02-17-2025 09:31-0500Systolic blood brvubwfr721 mm[Hg]Myra Samy SCHMITTN-SENIOR CORE JAVA DEVELOPER Work Phone: [facility]11-18-2024 13:05-0500Body .4 cmUniversity [facility]11-18-2024 13:05-0500Body mass index (BMI) [Ratio]26 kg/a9QzvurvryqUniversity Hospitals Lake West [facility] Center11-18-2024 13:05-0500Body mjqkrhabxha58.3 [degF][facility]11-18-2024 13:05-0500Body icirxc94.44 kgUniversity Hospitals Lake [facility]11-18-2024 13:05-0500Diastolic blood wizieqmv66 mm[Hg][facility] 07-12-2024 13:05-0500Heart rate90 /minUniversity Hospitals Lake West [facility] Center 07-12-2024 13:05-4469IrF0% (BldA) [Mass fraction]96 %[facility]11-18-2024 13:05-0500Systolic blood ffiezsok441 mm[Hg][facility]08-20-2024 10:47-0400Body oalkds623.4 cmUniversity [facility]08-20-2024 10:47-0400Body mass index (BMI) [Ratio]25.7 kg/t2XcsbpebuoUniversity Hospitals Lake West [facility] Center08-20-2024 10:47-0400Body urgkkp50.87 kgUniversity Hospitals Lake [facility] Center08-20-2024 10:47-0400Diastolic blood ltceicob35 mm[Hg] [facility]08-20-2024 10:47-0400Heart rate81 /minUniversity Hospitals Lake [facility] Center08-20-2024 10:47-2658PnX1% (BldA) [Mass fraction]99 % [facility]08-20-2024 10:47-0400Systolic blood vpfvewuj473 mm[Hg][facility]06-13-2024 11:56-0400Body mass index (BMI) [Ratio]23.92 kg/u7CbrflujMouna Bautista MD Work Phone: 1([phone]06-13-2024 11:56-0400Body .33 kgMouna Bautista MD Work Phone: [phone]06-13-2024 11:56-0400Diastolic blood zvunwgct10 mm[Hg]Mouna Bautista MD Work Phone: [phone])[facility]06-13-2024 11:56-0400Heart rate 78 /minMouna Bautista MD Work Phone: 1(298)[facility]06-13-2024 11:56-6773CxE2% (BldA) [Mass fraction]96 %Mouna Bautista MD Work Phone: [phone])[facility]06-13-2024 11:56-0400Systolic blood hxtqiuzp249 mm[Hg]Mouna Bautista MD Work Phone: 1([phone]05-10-2024 13:46-0400Body gkumnk137.5 cmMahnaz Ochoa MD Work Phone: [phone]05-10-2024 13:46-0400Body mass index (BMI) [Ratio]23.5 kg/j1FaaiidMahnaz Ochoa MD Work Phone: [facility]05-10-2024 13:46-0400Body .29 kgMahnaz Ochoa MD Work Phone: [facility]05-10-2024 13:46-0400Diastolic blood mm[Hg]Mahnaz Ochoa MD Work Phone: [facility]05-10-2024 13:46-0400Heart rate 86 /minMahnaz Ochoa MD Work Phone: [facility]05-10-2024 13:46-0400Systolic blood encddcvu110 mm[Hg]Mahnaz Ochoa MD Work Phone: [facility]05-06-2024 09:05-0400Body rowauw684.4 cmUniversity [facility]05-06-2024 09:05-0400Body mass index (BMI) [Ratio]25.4 kg/e8XknuiymzdUniversity Hospitals Lake West Medical Center05-06-2024 09:05-0400Body ljforwebsqo22.5 [degF][facility]05-06-2024 09:05-0400Body .96 kgUniversity Hospitals Lake [facility]05-06-2024 09:05-0400Heart rate86 /[facility]05-06-2024 09:05-0400Respiratory rate16 /[facility]05-06-2024 09:05-8136MoV7% (BldA) [Mass fraction]96 %[facility] 11-06-2023 15:01-0400Body .5 Donavan Anna MD Work Phone: [facility]03-14-2024 15:01-0400Body mass index (BMI) [Ratio]22.09 kg/q4NqdfmAdam Anna MD Work Phone: [facility]03-14-2024 15:01-0400Body sybfukpnmbo23.6 [degF]Adam Anna MD Work Phone: [facility]03-14-2024 15:01-0400Body bjeeny58.8 kgAdam Anna MD Work Phone: [facility]03-14-2024 15:01-0400Diastolic blood kdpoofrp79 mm[Hg]Adam Anna MD Work Phone: [facility]03-14-2024 15:01-0400Heart rate 109 /minAdam Anna MD Work Phone: [facility]03-14-2024 15:01-0400 Respiratory rate24 /Pb Anna MD Work Phone: [facility]03-14-2024 15:01-7725OhT9% (BldA) [Mass fraction]97 %Adam Anna MD Work Phone: [facility]03-14-2024 15:01-0400Systolic blood eqrcnsve551 mm[Hg]Adam Anna MD Work Phone: [facility]02-22-2024 11:04-0500Body owxfoh065.4 cmUniversity [facility]02-22-2024 11:04-0500Body mass index (BMI) [Ratio]23.6 kg/y9ZkrovjgitUniversity Hospitals Lake [facility] Center02-22-2024 11:04-0500Body nfzcup03.88 kgUniversity Hospitals Lake [facility]02-22-2024 11:04-0500Diastolic blood kzcmypgh60 mm[Hg][facility] 10-16-2023 11:04-0500Heart rate88 /minUniversity Hospitals Lake West Medical Center 10-16-2023 11:04-5123WfT9% (BldA) [Mass fraction]98 %[facility]02-22-2024 11:04-0500Systolic blood vhwathyl398 mm[Hg][facility]02-22-2024 09:50-0500Diastolic blood qpiifhmg32 mm[Hg]Mouna Bautista MD Work Phone: 1([phone]02-22-2024 09:50-0500Heart rate 72 /minoMuna Bautista MD Work Phone: [phone]02-22-2024 09:50-0500Systolic blood jsnehxfl768 mm[Hg]Mouna Bautista MD Work Phone: [facility] [employer] Uljqzc82-94-8927 09:49-0500Body itdmtk405.5 cmMouna Bautista MD Work Phone: [facility] [employer] Atscyw63-32-0134 09:49-0500Body mass index (BMI) [Ratio]21.51 kg/d8VxppugcMouna Bautista MD Work Phone: [phone] [employer] Opcsyk48-13-1183 09:49-0500Body .34 kgMouna Bautista MD Work Phone: [facility]02-22-2024 09:49-0500 Respiratory rate18 /minMouna Bautista MD Work Phone: [phone]02-02-2024 15:31-0500Body vpdawjubhol68.2 [degF]Bart Milian MD Work Phone: [facility] [employer] Cvseah74-87-3277 15:31-0500Heart rate 103 /minBart Milian MD Work Phone: [facility]02-02-2024 15:31-0500 Respiratory rate16 /minBart Milian MD Work Phone: [facility]02-02-2024 15:31-7103AzO3% (BldA) [Mass fraction]96 %Bart Milian MD Work Phone: [facility]02-02-2024 07:20-0500Diastolic blood mm[Hg]Bart Milian MD Work Phone: [facility]02-02-2024 07:20-0500Systolic blood nrlzhevy904 mm[Hg]Bart Milian MD Work Phone: [facility]01-31-2024 13:40-0500Body hetiud828.5 Negro Milian MD Work Phone: [phone] [place] [address] [employer] Jmyvzg14-39-8174 13:40-0500Body mass index (BMI) [Ratio]21.21 kg/s3McfnfBart Milian MD Work Phone: [facility]01-31-2024 13:40-0500Body .6 kgBart Milian MD Work Phone: [facility] Encounters Encounter DateEncounter TypeCare ProviderFacilityStart: 06-13-2025 End: 67-16-6407Fnpfwf outpatient visit 25 minutesChasity A Samy MONDRAGON Work Phone: [facility] - Medical OncologyComment on above:Iron deficiency (Primary Dx); Normocytic anemia; Thrombocytosis; Anemia, unspecified type; Giant cell arteritis ([facility]-HCC)Start: 06-13-2025 End: 08-12-8155kyzbagcubwZVNTLBK A [facility] Hospitalt[facility]25 End: 23-78-9881evlqlqnhysOciyshitSegundo Graf APRN Work Phone: [facility] Work Phone: Start: 05-23-2025 End: 69-88-7798Ieujxcc encounter procedureJestarr Graf APRN SENIOR CORE JAVA DEVELOPER-FPG [facility] Work Phone: Start: 05-17-2025 End: 97-15-3988ohravpsjlrJxdixykfSegundo Graf APRN Work Phone: [facility] Work Phone: Start: 05-17-2025 End: 23-44-5467Gegfudq encounter procedureJennifer Zekerbacher VP PURCHASING SENIOR CORE JAVA DEVELOPER-FPG [facility] Work Phone: Start: 03-15-2025 End: 88-05-4343tdsbtawsraMGMII I [facility] Start: 02-01-2025 End: 94-14-8520rvineycasqFRJUV I [facility] Start: 01-24-2025 End: 02-92-8195Wcztku outpatient visit 25 minutesChasity A Samy HUANG-SENIOR CORE JAVA DEVELOPER Work Phone: [facility] - Medical OncologyComment on above:Iron deficiency (Primary Dx); Normocytic anemia; Thrombocytosis; Anemia, unspecified typeStart: 01-24-2025 End: 75-04-0561qlvsidtskmYBASRUI A [facility]art: 12-16-2024 End: 44-88-9758zgfatkdpqwOdtvdbtbhTwin City Hospital Work Phone: Start: 12-16-2024 End: 99-96-4811Qriottt encounter procedureAtrium Health Mountain Island Physician GroupMercy [facility] – [facility] Work Phone: Start: 65-15-9852Fio-patient / Non-[facility]well[facility] Physician [facility] Work Phone: Start: 92-33-9280Nwp-patient / Non-visitFirwell[facility] Physician [facility] Work Phone: Start: 96-12-1292Bcv-patient / Non-visitFirelands Physician GroupMercy [facility] Work Phone: Start: 42-16-3123Fvz-patient / Non-visitFirwellmont [facility] Phys[facility] Work Phone: Start: 10-13-2024 End: 30-73-1091ahnovuwtadBupwtvgxmNewark Hospital Work Phone: Start: 10-13-2024 End: 81-51-0382Nqlzjkm encounter procedureAtrium Health Mountain Island Physician GroupMer[facility] Work Phone: Start: 10-11-2024 End: 24-92-7583Nrfgyq outpatient visit 40 minutesChasity Marisol Cota APRN-SENIOR CORE JAVA DEVELOPER Work Phone: dolauren [facility] - Medical OncologyComment on above:Normocytic anemia (Primary Dx); Thrombocytosis; Anemia, unspecified type; Iron deficiency; Giant cell arteritis ([facility]-HCC); Vision blurredStart: 10-11-2024 End: 61-35-6545hncmibuahgJQXJUJE A [facility]tart: 10-06-2024 End: 47-82-6156jvlydtwrjjLTSDY [facility] Start: 39-45-0010Cxv-patient / Non-visitFirminneapoliss Physician Group[facility] Work Phone: Start: 07-16-2024 End: 94-35-6811Pjksreg encounter procedureAtrium Health [facility] Physician [facility] Work Phone: Start: 07-12-2024 End: 04-95-7024lcqnnqtnunVnbheiogmNewark Hospital Work Phone: Start: 07-12-2024 End: 76-87-6190Qytwfgv encounter procedureAtrium Health [facility]ician [facility] Work Phone: Start: 15-44-5844Pli-patient / Non-visitFirminneapoliss Physician [facility] Work Phone: Start: 05-05-2024 End: 55-39-4780hapiabzcxfFZHYM [facility] Start: 77-35-4188Hah-patient / Non-visitAtrium Health [facility]ician [facility] Work Phone: Start: 38-45-2921Fvafyap encounter [facility]: 04-13-2024 End: 50-49-0051kozxljcamwXaugifqnzTwin City Hospital Work Phone: Start: 04-13-2024 End: 80-63-3692Fczjotj encounter procedureAtrium Health Mountain Island Physician GroupMercy Health [facility] Work Phone: Start: 03-08-2024 End: 08-72-2233VxnvahSelam PalmerMercy Hospital South, formerly [facility] - Medical OncologyComment on above:Normocytic anemia (Primary Dx); Thrombocytosis; Anemia, unspecified typeStart: 43-27-8427Fnk-patient / Non-visitFirminneapoliss Physician Group[facility] Work Phone: Start: 02-05-2024 End: 82-86-0570Urciuq outpatient visit 10 minutesMouna Bautista MD Work Phone: [facility] Comment on above:Giant cell arteritis (CMS-HCC) (Primary Dx)Start: 02-05-2024 [facility] Ambulatory PPGStart: 01-02-2024 End: 53-84-6064fkbncxevyhXNTYQZMerrick Medical Center Ambulatory PPGStart: 01-02-2024 End: 83-65-7508Wzjhlt outpatient visit 25 minutesMahnaz Ochoa MD Work Phone: [facility] NeurologyComment on above:Giant cell arteritis (CMS-HCC) (Primary Dx)Start: 12-29-2023 End: 66-74-3811akjnqhjorrIjlfbflswTwin City Hospital Work Phone: Start: 12-29-2023 End: 83-93-3620Yrtedee encounter procedureAtrium Health [facility]ician [facility] Work Phone: Start: 00-48-8848Oyt-patient / Non-visitAtrium Health Mountain Island Physician Group-[facility] Work Phone: Start: 11-06-2023 End: 33-13-0485Snaxjz outpatient visit 40 minutesAdam Anna MD Work Phone: [facility]isaCorewell [facility] - Medical OncologyComment on above:Normocytic anemia (Primary Dx); ThrombocytosisStart: 42-71-1978Kimsyg Kati MontalvoCorewell Health Big Rapids Hospital - Medical OncologyComment on above:Giant cell arteritis ([facility]-HCC) (Primary Dx); Stroke-like symptoms; Vision blurred; Anemia, unspecified typeStart: 34-27-4899Hgd-patient / Non-visitAtrium Health Mountain Island Physician GroupLegacy Health Professional Co Work Phone: Start: 10-11-0230Mhazfousk encounterBeronica Suh NeurologyComment on above:Med RefillStart: 10-16-2023 End: 66-03-6516dpqikpmyenYkhthreryTwin City Hospital Work Phone: Start: 10-16-2023 End: 49-22-4764Zraglrv encounter procedureAtrium Health [facility]ician [facility] Work Phone: Start: 10-16-2023 End: 92-17-2639dkafsdkuudTTZYIZX F OSMANEast [facility] Ambulatory PPGStart: 10-16-2023 End: 26-23-8571Rxbbej outpatient visit 15 minutesMoish Bautista MD Work Phone: [facility] Comment on above:Giant cell arteritis (CMS-HCC) (Primary Dx)Start: 09-29-2023 Telephone encounterCargeremias OvallesMorrow County Hospital Physicians NeurologyComment on above: Hospital Follow-upStart: 09-27-2023 End: 35-25-7145Xwzbuoeoql and management of inpatientJEFFREY A GRAMLINGOhioHealth HospitalStart: 09-24-2023 End: 77-53-1042Gtsnofbxps and management of inpatientRAYAN MAGSIOhioHealth HospitalStart: 09-24-2023 End: 95-39-9746Mjlohrkdaz and management of inpatientMOHAMMAD MAHSHANEL CARABALLO ProMclay county hospitala Umpire HospitalStart: 32-84-8571cqhpzuemqhPPIPCYA P [facility] Ambulatory PPGStart: 09-23-2023 End: 57-38-1545Uqsxprxzva and management of inpatientAVIJIT DASOhioHealth HospitalStart: 09-23-2023 End: 14-09-5858Llpzyirukc and management of inpatientTono Pan MD Work Phone: [facility] - GEN 8 AcuteComment on above:B12 deficiency (Primary Dx); Thrombocytosis; Vision blurred; Temporal arteritis (CMS-HCC)Start: 03-24-2023 End: 65-09-3569swaefubkvaHbwhoqr Vytautas Tai SENIORFacility:PM Shiv Start: 03-10-2023 End: 65-20-3004gbizsetlxbMlfkksn Vytautas Giedraitis MDFacility:PM Foster Start: 03-03-2023 End: 50-70-9005twqlqtdqvwSyqgvrk Vytautas Giedraitis MDFacility:PM Shiv Start: 02-17-2023 End: 63-52-5672runectjgdkRdileih Vytautas Giedraitis MDFacility:PM Foster Start: 02-03-2023 End: 73-82-5552qwcmngmclnUhkiiob Vytautas Giedraitis MDFacility:PM Shiv Start: 01-24-2023 End: 59-80-4728arespxwztkYplyduz Vytautas Giedraitis MDFacility:PM Shiv Start: 12-25-2022 End: 24-08-2134vennagnnocUT PATO Perez REINECKFacility:V8Qsgxc: 04-25-2022 End: 08-05-0056kqyequuxsuBD CRISTOPHER BUCHANAN .Facility: Procedures DateProcedureProcedure DetailPerforming ClinicianStart: 32-18-3865Dfujdy-up visitFollow-upCHASITY A KENDALLStart: 58-24-7646Yxfwea-up visitFollow-upMOHAMED F OSMANStart: 36-23-6169Nlqrw metabolic panel calcium totalAbdulmajeed William SENIOR Work Phone: Start: 63-39-5759Uzykq i surg pathology gross examination onlySophia Chris Reid MD Work Phone: [phone]: 09-25-2023 End: 34-86-0233Hgjzbaxi/biopsy temporal arterySophia Chris Reid MD Work Phone: Start: 27-91-3535Sthi tthrc r-t 2d w/wom-mode compl spec&colr Nella López MD Work Phone: Start: 12-44-3970Szqjj metabolic panel calcium total Abdmarleemarobert Thomas MD Work Phone: Start: 09-24-2023 End: 65-07-9468Akz brain brain stem w/o w/contrast materialMohammad Bailey Caraballo MD Work Phone: Start: 78-11-9885Tfa/abl1 major breakpnt qualitative/quantitativeBrantley Hinders VP PURCHASING-SENIOR CORE JAVA DEVELOPER Work Phone: Start: 28-19-5306Xdqvnkcnz globulin direct each antiserumBrantley Hinders VP PURCHASING-SENIOR CORE JAVA DEVELOPER Work Phone: Start: 75-32-3809XDWBXucpq Alissa SENIOR Work Phone: Start: 40-96-3141Pasas of haptoglobin quantitative Tono Pan MD Work Phone: Start: 11-55-8342Lzli 2 glycoprotein i antibody each Tono Pan MD Work Phone: Start: 67-66-3847Mrpyt count complete auto&auto difrntl wbcRaeduar Milian MD Work Phone: Start: 39-06-3527YEMWIZDT PATHOLOGY BLOOD SMEAR REVIEW Bart Milian MD Work Phone: Start: 54-14-4233Hvj9 gene analysis p.bit256dmp variantBart Milian MD Work Phone: Start: 45-12-5578Lcgwbwbepwh antibodies Power Walters MD Work Phone: Start: 70-49-3137Selfkkowdohtu metabolic panelNandini Walters MD Work Phone: Start: 90-12-4298Qvcoj depression screening assessment [facility] Hospitaltart: 59-58-1761ZCWJH OXIMETRY, SPOTNandini Walters MD Work Phone: History of cataract extractionHistory of cataract extraction with lens replacementHistory of cataract extractionHistory of cataract extraction with lens replacementHistory of cataract extractionHistory of cataract extraction with lens replacementHistory of cataract extraction History of cataract extraction with lens replacementJennifer Rohrbacher VP PURCHASING SENIOR CORE JAVA DEVELOPER Plan of Treatment DateCare ActivityDetailAuthorStart: 51-41-4000Obcitmd ScreeningTobacco Screening [facility] SystemStart: 85-19-5901Fobysam ScreeningTobacco Screening [facility] SystemStart: 10-10-2025 End: 31-22-5346Nmnrnaa encounter jqcatdebm36/16/2026 10:30 AM EST Office Visit Adelaida Keane [facility] - Medical Oncology [address] [place] [phone] Myra Cota, VP [facility] [address] [place], [place] [phone] Adelaida Keane [facility] - Medical OncologyStart: 09-08-5623Istqmyx referralAshtabula County Medical Center Work Phone: Start: 05-09-2025 End: 38-86-2919Atonxky encounter jvehzjasb99/15/2025 10:45 AM EDT Office Visit Adelaida Keane [facility] Medical Oncology [address] [place] [phone] Myra Cota, VP PURCHASING-[facility] [address] [place], [place] [phone] Adelaida Keane [facility] Medical OncologyStart: 20-60-4993Mjehasuyy vaccinationInfluenza Vaccine [facility] SystemStart: 75-96-0806Wgxow BMI ScreeningAdult BMI Screening [facility] SystemStart: 91-64-6426Accxo BMI ScreeningAdult BMI Screening [facility] SystemStart: 18-76-3977Qnrznck ScreeningTobacco Screening [facility] SystemStart: 42-44-4359Klazc BMI ScreeningAdult BMI Screening [facility] SystemStart: 65-71-2274Bokplus ScreeningTobacco Screening [facility] SystemStart: 12-10-2024 End: 52-02-0560Zsmziun encounter finetthcq93/18/2025 2:30 PM EDT Office Visit Adelaida Keane [facility] - Medical Oncology [address] [place] [phone] Adam Anna MD [address] [place] [address] Adelaida Keane [facility] - Medical OncologyStart: 33-21-9470Gzlcf BMI ScreeningAdult BMI ScreeningFulton County Health Center SystemStart: 27-28-2494Aliak BMI ScreeningAdult BMI ScreeningProFirelands Regional Medical Center South Campusca [facility] SystemStart: 70-40-4014Kvfisri ScreeningTobacco ScreeningProFirelands Regional Medical Center South Campusca [facility] SystemStart: 90-19-1178Bdisp BMI ScreeningAdult BMI ScreeningJ.W. Ruby Memorial Hospitalca [facility] SystemStart: 08-65-4975Juolaal ScreeningTobacco ScreeningFulton County [facility] System Start: 07-82-0935Uticlhcdbq ScreeningDepression ScreeningFulton County Health [facility] Start: 09-09-2024 End: 77-46-9829Ephknbw encounter /16/2025 1:15 PM EST Office Visit Adelaida Keane [facility] - Medical Oncology [address] [place] [phone] Adam Anna MD [address] [place] [address] Adelaida Keane [facility] Medical OncologyStart: 32-22-8248Cvuwlzqyd vaccinationInfluenza VaccineFulton County Health Center SystemStart: 03-05-2024 End: 50-67-8989Gsrrqpo encounter vnwndusej22/12/2024 2:15 PM EDT Office Visit Adelaida Keane [facility] - Medical Oncology [address] [place] [phone] Adam Anna MD [address] [place] [address] Adelaidabahman Keane [facility] Medical OncologyStart: 02-05-2024 End: 35-86-8710Wlfmuet encounter pgwamzhmq01/13/2024 11:30 AM EDT Office Visit [facility] [address] [place] [address] Mouna Bautista MD [address], [address] [address] [facility] Wound CareStart: 01-15-2024 End: 25-56-1662Bllimht encounter ttwnwetkl18/23/2024 11:00 AM EDT Office Visit [facility] [address] [place] [address] Mouna Bautista MD [address], [address] [address] [facility] Wound CareStart: 01-02-2024 End: 93-76-5909Ziszcoh encounter /10/2024 1:15 PM EDT Office Visit [facility] [address] [place] [phone] Darci Santana MD [address] [place] [address] [facility] NeurologyStart: 12-05-2023 End: 24-35-2876Kedhsoi encounter ejnrnzaqj63/12/2024 10:15 AM EDT Office Visit [facility] [address] [place] [phone] Darci Santana MD [address] [place] [address] [facility] NeurologyStart: 11-06-2023 End: 75-94-2568Kezgovp encounter oujppwwlu03/14/2024 3:30 PM EDT Office Visit [facility] [place] [address] Adam Anna MD [address] [place] [address] [address] [place] [address] Adelaida Faby [facility] - Medical OncologyStart: 10-16-2023 End: 43-20-4187Lorkzep encounter keyrjzzdc76/22/2024 9:10 AM EST Office Visit [facility] [address] [place] [address] Mouna Bautista MD [address], [address] [address] [facility] Wound CareStart: 11-86-5902Eqoeluuyx vaccinationInfluenza Vaccine [facility] SystemStart: 11-03-1875Fjym Risk ScreeningFall Risk Screening [facility]tart: 96-85-1864Qgokpzqitkffmf of varicella zoster vaccineZoster (Shingles) Vaccine (1 of 2)[facility] SystemStart: 51-75-8474KQgN,Tdap and Td Vaccines (1 - Tdap)DTaP,Tdap and Td Vaccines (1 - Tdap)[facility] SystemStart: 1946Medicare Annual Wellness Visit Medicare Annual Wellness VisitFulton County Health Center System End: 66-55-6603Jibvw metabolic 2000 panel - Serum or PlasmaBasic Metabolic Panel Lab Routine Vision blurred 1 Occurrences starting 09/26/2023 until 09/26/2024 [facility]Comment [facility]:1 Occurrences starting 09/26/2023 until 09/26/2024 End: 45-34-9500NLY W Auto Differential panel - BloodCBC auto differential Lab Routine Thrombocytosis 1 Occurrences starting 09/26/2023 until 09/26/2024 [facility] HospitalComment on above:1 Occurrences starting 09/26/2023 until 09/26/2024 End: 84-25-8619DIE W Auto Differential panel - BloodCBC auto differential Lab Routine Giant cell arteritis (CMS-HCC) Stroke-like symptoms Vision blurred Anemia, unspecified type every 2 months for 2 Occurrences starting 11/06/2023 until 11/05/2024ProFirelands Regional Medical Center South Campusca Work Phone: Comment on above:every 2 months for 2 Occurrences starting 11/06/2023 until 11/05/2024 End: 85-49-3477XDU W Auto Differential panel - BloodCBC with auto diff Lab Routine Normocytic anemia Thrombocytosis Anemia, unspecified type Iron defici ency prn for 12 Occurrences starting 01/24/2025 until 01/24/2026Pro[place] Work Phone: Comment on above:prn for 12 Occurrences starting 01/24/2025 until 01/24/2026 End: 72-09-8713Lvnpxoqsnwscvq vitamin b-12Vitamin B12 Lab Routine Normocytic anemia Thrombocytosis Anemia, unspecified type Iron deficiency prn for 12 Occurrences starting 01/24/2025 until 01/24/2026J.[facility]. Ruby [facility] HospitalTermScout [facility] SystemComment on above:prn for 12 Occurrences starting 01/24/2025 until 01/24/2026 End: 36-21-7124Rccomjpw [Mass/volume] in Serum or PlasmaFerritin Lab Routine Giant cell arteritis (CMS-HCC) Stroke-like symptoms Vision blurred Anemia, unsp ecified type every 2 months for 2 Occurrences starting 11/06/2023 until 11/05/2024[facility] SystemComment on above:every 2 months for 2 Occurrences starting 11/06/2023 until 11/05/2024 End: 59-83-3644Hxozkhfw [Mass/volume] in Serum or PlasmaFerritin Lab Routine Normocytic anemia Thrombocytosis Anemia, unspecified type Iron deficiency prn f or 12 Occurrences starting 01/24/2025 until 01/24/2026[facility] Comment on above:prn for 12 Occurrences starting 01/24/2025 until 01/24/2026 End: 36-76-5645Kgks cytometry blood onlyProAvante Logixxca Work Phone: Comment on above:Once for 1 Occurrences starting 09/23/2023 until 09/23/2023Immunoelectrophoresis for Therapy Monitoring Immunoelectrophoresis for Therapy Monitoring Lab Routine 09/23/2023 12:56 PM EST [facility] Work Phone: End: 81-20-0799Lspr and TIBCIron and TIBC Lab Routine Giant cell arteritis (CMS- HCC) Stroke-like symptoms Vision blurred Anemia, unspecified type every 2 months for 2 Occurrences starting 11/06/2023 until 11/05/2024J.W. Ruby Memorial HospitalQ.branch [facility] Comment on above:every 2 months for 2 Occurrences starting 11/06/2023 until 11/05/2024 End: 52-59-9784Qhei and TIBCIron and TIBC Lab Routine Normocytic anemia Thrombocytosis Anemia, unspecified type Iron deficiencyprn for 12 Occurrences starting 01/24/2025 until 01/24/2026J.W. Ruby Memorial HospitalQ.branch [facility] Joseph HospitalComment on above:prn for 12 Occurrences starting 01/24/2025 until 01/24/2026Methylmalonate [Moles/volume] in Serum or PlasmaMethylmalonic acid screen Lab Routine 09/23/2023 12:57 PM [facility] CenterQ.branch [facility] End: 81-89-3431Xisewixwuubvz acid screenMethylmalonic acid screen Lab Routine Once for 1 Occurrences starting 09/23/2023 until 09/23/2023[facility] Work Phone: Comment on above:Once for 1 Occurrences starting 09/23/2023 until 09/23/2023atient [facility] Work Phone: Protein electrophoresis, serumProtein electrophoresis, serum Lab Routine 09/23/2023 12:56 PM [facility] CenterQ.branch [facility] Payers DatePayer CategoryPayerPolicy [id number] HMO [id number] [id number] [id number] Health [id number] [id number] 1945 [id number] 2.840.1.221864.3.57[id number] 2.840.1.495844.3.57[id number] 2.0.1.771621.3.57[id number] 2.840.1.723962.3.57[id number] 2.840.1.652201.3.57[id number] 2.840.1.995271.3.57[id number] 2.840.1.026590.3.57[id number] 2.840.1.695495.3.57[id number] 2.840.1.493639.3.57[id number] 2.0.1.387450.3.57[id number] 2.840.1.155634.3.57[id number] 2.840.1.747542.3.57[id number] 2.840.1.533271.3.57[id number] 2.840.1.438260.3.57[id number] 2.840.1.151305.3.57[id number] 2.840.1.944545.3.57[id number] 2.840.1.208336.3.57[id number] 2.840.1.939185.3.57[id number] 2.16.840.1.762316.3.57[id number] 2.16.840.1.513409.3.57[id number] 2.16.840.1.739661.3.57[id number] 2.16.840.1.555334.3.57[id number] 2.16.840.1.864172.3.57[id number] 2.16.840.1.124669.3.57[id number] 2.16.840.1.556302.3.579.2.1286Self-paySelf Pay [id number] Social History DateTypeDetailFacilityStart: 10-16-2023 End: 28-01-5020Sdyuuhp smoking status NHISEx-smoker (finding)[facility] Clinictart: 10-96-7449Yfm Assigned At BirthFemaleFAvita Health Systemtart: 03-30-2015 End: 76-95-7790KnpQwrhzj (finding)[facility] Clinictart: 47-49-0493Tpzfibm smoking status NHISNever smoked tobaccoProEncompass Health [facility] Start: 98-19-3588Dfntlqq use and exposureSmokeless tobacco non-userProBlanchard Valley Health System SystemStart: 01-02-2024 End: 38-35-5172Vwefcxftl beverage intakeLifetime non-drinker (finding)ProMclay county hospitala [facility] SystemStart: 10-05-2020 End: 23-52-5830Tysfava of Social functionProBlanchard Valley Health System SystemStart: 10-05-2020 End: 03-54-5283Nimznst Use Disorder Identification Test - Consumption [AUDIT-C] ProMuiu SystemHow often to you have a drink containing alcohol?Never [facility] Hospitaluiu SystemHow many standard drinks containing alcohol do you have on a typical day?Patient does not drinkMount Ascutney HospitalFABPulous SystemStart: 1945 Sex assigned at birthNot on fileProFABPulous System Goals DatePatient GoalDesired Activity/StatePersonal health goalComment on above: Evaluation of progress towards goal: Home with dtr, self care Clinical Notes 09-23-2023 to 06-13-2025 Note Date & AdihKowuYhfxhrpb03-76-1358 History of Present illness Narrative* Myra Cota, REINA-SENIOR CORE JAVA DEVELOPER - 06/13/2025 9:30 AM EDT Images from the original note were not included. [facility] [address] [place] [phone] 06/13/2025 Chief Complaint Patient presents with Follow-up Subjective/Interval events: Jose David is a 80 y.o. year old [...] no significant past medical history [facility] due to blurry vision in left eye, she was told her optic disc was swollen and the patient was given a referral to [facility]add[facility]. Over the weekend patients vision in left eye continued to worsen and eventually lost all vision in left eye. Patient was seen by caddie 09/22/2023 and time she would decreased vision also in her right eye. It was recommended that she go straight to the emergency department, for concern for giant cell arteritis. Initially she went to [facility] where they gave her Solu-Medrol 250 mg IV 1 dose and then transferred her to [facility]. When she arrived at [facility] she had complete vision loss in [...] Vitals: BP 151/70 Pulse 89 Temp 36.8 C (98.2 F) (Oral) Resp 16 Ht 157.5 cm (5' 2.01 ) Wt 67.4 kg (148 lb 9.6 oz) SpO2 98% BMI 27.17 kg/m Body mass index is 27.17 kg/m . Wt Readings from Last 3 Encounters: 06/13/25 [...] in this patient's care. MYRA COTA APRN-RIVKA 06/13/2025 12:39 PM Total time spent was 35 minutes: Preparing to see the patient (e.g., review of tests) Obtaining and/or reviewing separately obtained history Performing a medically appropriate examination and/or evaluation Counseling and educating the patient/family/caregiver Referring and communicating with other health cardiac care nurse (not separately reported) Documenting clinical information in the electronic or other health record Independently interpreting results (not separately reported) and communicating results to the patient/family/caregiver Care coordination (not separately reported) Please note that portions of this note may have been generated using voice recognition M*Joyus dictation software. Although every effort was made to ensure the accuracy of any automated transcriptions, some errors may have occurred. ALANNA Garcia 03/08/24 1507 ALANNA Garcia 10/11/24 1457 ALANNA Garcia 01/24/25 1021 ALANNA Garcia 06/13/25 1242 documented in this encounterJ.W. Ruby Memorial HospitalTermScout [facility] [id number] Instructions* Patient Instructions* ALANNA Garcia - 06/13/2025 9:30 AM EDT Labs done at [facility], not uploaded into system - will review once uploaded Continue multivitamin daily Follow up in 4 months with labs prior CBC-d CMP iron panel ferritin vitamin B12 documented in this encounterJ.W. Ruby Memorial HospitalTermScout [facility] Eye [id number] Evaluation note* Diagnosis Onset Date Resolution Status Admit Date Bilateral lower extremity edema acuteSept2024 1:04pmAt high risk for fallsacuteSeptember 2024 9:33amGERD (gastroesophageal reflux disease)acuteSept2024 9:33am History of cataract extraction with lens replacementacuteSept2024 9:33amMedicare annual wellness visit, subsequentacuteSeptember 2024 9:33am Right knee painacuteSeptember 2024 9:33amTemporal arteritisacuteSeptember 2024 9:33amVision loss, bilateralacuteSeptember 2024 9:33am [facility] Work Phone: 1(738) 623-159807-22-2025 Note Attestation signed by Jt Jasso MD [...] follow up. HPI She was admitted to [facility] end of August 2023 due to [...] rest. Toe-brachial indices suggesti (more content not included)...[facility]06-10-2025 Note Attestation signed by Jt Jasso MD [...] follow up. HPI She was admitted to [facility] end of August 2023 due to [...] weeks [facility] History of Present illness Narrative* Myra Cota APRN-SENIOR CORE JAVA DEVELOPER - 01/24/2025 10:30 AM EDT Images from the original note were not included. [facility] [address] [place] [phone] 01/24/2025 Chief Complaint Patient presents with [...] no significant past medical history [facility]23 due to blurry vision in left eye, she was told her optic disc was swollen and the patient was given a referral to caddie. Over the weekend patients vision in left eye continued to worsen and eventually lost all vision in left eye. Patient was seen by caddie 09/22/2023 and time she would decreased vision also in her right eye. It was recommended that she go straight to the emergency department, for concern for giant cell arteritis. Initially she went to [facility] where they gave her Solu-Medrol 250 mg IV 1 dose and then transferred her to [facility]. When she arrived at [facility] she had complete vision loss in [...] in this patient's care. MYRA COTA APRN-RIVKA 01/24/2025 10:20 AM Total time spent was 35 minutes: Preparing to see the patient (e.g., review of tests) Obtaining and/or reviewing separately obtained history Performing a medically appropriate examination and/or evaluation Counseling and educating the patient/family/caregiver Referring and communicating with other health cardiac care nurse (not separately reported) Documenting clinical information in the electronic or other health record Independently interpreting results (not separately reported) and communicating results to the patient/family/caregiver Care coordination (not separately reported) Please note that portions of this note may have been generated using voice recognition [employer] dictation software. Although every effort was made to ensure the accuracy of any automated transcriptions, some errors may have occurred. ALANNA Gracia 03/08/24 1507 ALANNA Garcia 10/11/24 1457 ALANNA Garcia 01/24/25 1021 documented in this [facility]06-02-2025 Instructions* Patient Instructions* ALANNA Garcia - 01/24/2025 [...] documented in this [facility]02-19-2025 Evaluation note* Diagnosis Onset Date Resolution Status Admit Date Left otitis media acuteFebruary 2024 2:27pmMuscle spasmacuteFebruary 2024 2:27pmNeck painacuteFebruary 2024 2:27pmGERD (gastroesophageal reflux disease)acute December 16, 2024 1:50pm [facility] Work Phone: 1(988) 362-594402-17-2025 History of Present illness Narrative* ALANNA Garcia - 10/11/2024 9:30 AM EST Images from the original note were not included. [facility] [address] [place] [phone] 10/11/2024 Chief Complaint Patient presents with [...] ferrous sulfate b.i.d.. She worked with her consultant luxury and auto. vice president jaguar brand (ex ) tochange these medications. He placed her on a multivitamin daily. And she does have a lower dose [id number]. She tells me that once she gets [...] no significant past medical history [facility]2023 due to blurry vision in left eye, she was told her optic disc was swollen and the patient was given a referral to [facility]addie. Over the weekend patients vision in left eye continued to worsen and eventually lost all vision in left eye. Patient was seen by caddie 09/22/2023 and time she would decreased vision also in her right eye. It was recommended that she go straight to the emergency department, for concern for giant cell arteritis. Initially she went to [facility] where they gave her Solu-Medrol 250 mg IV 1 dose and then transferred her to [facility]. When she arrived at [facility] she had complete vision loss in [...] patient/family/caregiver Referring and communicating with other health cardiac care nurse (not separately reported) Documenting clinical information in the electronic or other health record Independently interpreting results (not separately reported) and communicating results to the patient/family/caregiver Care coordination (not separately reported) Please note that portions of this note may have been generated using voice recognition [employer] dictation software. Although every effort was made to ensure the accuracy of any automated transcriptions, some errors may have occurred. ALANNA Garcia 03/08/24 1507 ALANNA Garcia 10/11/24 1457 documented in this [facility]02-17-2025 Instructions* Patient Instructions* ALANNA Garcia - 10/11/2024 [...] ferritin vitamin B12 folate documented in this [facility]02-12-2025 NoteSubjective Patient ID: Jose David is a 79 y.o. female who presents for No chief complaint on file.. HPI She was admitted to [facility] end of August 2023 due to [...] testing every 3 months to monitor for toxicity.[facility] 05-05-2024 NoteSubjective Patient ID: Jose David is a 78 y.o. female who presents for Follow-up (1 headache a few weeks ago. Increased itching for a few months ). HPI She was admitted to [facility] end of August 2023 due to [...] testing every 3 months to monitor for toxicity.[facility] 04-13-2024 Evaluation note* Diagnosis Onset Date Resolution Status Admit Date At high risk for falls acuteAugust 2023 10:44amDry skin dermatitisacuteAugust 2023 10:44am GERD (gastroesophageal reflux disease)acuteAugust 2023 10:44amHistory of cataract extraction with lens replacementacuteAugust 2023 10:44amMedicare annual wellness visit, subsequentacuteAugust 2023 10:44amTemporal arteritisacuteAugust 2023 10:44amVision loss, bilateralacuteAugust 2023 10:44am [facility] Work Phone: 1(843) 481-169007-15-2024 History of Present illness Narrative* Roxie Saldivar RN - 03/08/2024 2:46 PM EDT The patient is here for AMY follow up, labs and plan of care were reviewed with Myra GANTRY CRANE OPERATOR. The following recommendations were made: Continue ferrous sulfate 325 mg twice daily Continue vitamin B12 1000 mcg daily Labs in 3 months CBC-d, iron panel, ferritin, vitamin B12 Follow up in 6 months with same labs prior Patient & daughter verbalized understanding, AVS given documented in this encounterSt. [facility]06-[facility] History of Present illness Narrative* Mouna Bautista MD - 02/05/2024 11:40 AM EDT Images from the original note were not included. To: Giovanna Graf, VP PURCHASING-GANTRY CRANE OPERATOR HPI: Jose David is a 78 y.o. [...] 09/25/2023 Performed by Kristel Reid MD at [facility] TONSILLECTOMY TUBAL LIGATION Social and Family [...] Interpersonal Safety: Unknown (10/17/2023) [facility] from [facility] [place] [facility] Fear of Current [...] and Plan: Problem List Giant cell arteritis ([facility]) - Primary Jose was seen today for giant cell arteritis and leg pain. Diagnoses and all orders for this visit: Giant cell arteritis ([facility]) Mouna Bautista MD, JULIANA, RPVI, FSVS, [...] you for your understanding. documented in this encounterSt. Rita's Hospital05-10-2024 History of Present illness Narrative* Mahnaz Ochoa MD - 01/02/2024 1:30 PM EDT Images from the original note were not included. [address] [facility] [id number] Patient: Jose David Date of : 1945 Encounter Date: 01/02/2024 Patient Care Team: MERCEDES Portillo as PCP - General (Nurse Practitioner) Adam Anna MD as Consulting Physician (Hematology) History of Present Illness: The patient is a 78 y.o. female, a patient seen at [facility] by our service, and is here [...] the patient was given a referral to [facility] eye Center? The patient states that [...] the ED immediately. Patient initially went to [facility] and was given IV 250 mg Solu-Medrol once. She was then transferred to [facility] for further evaluation. Initial consideration with [...] head and CTA were reportedly done at [facility] and reported to be unremarkable. MRI [...] 09/25/2023 Performed by Kristel Reid MD at [facility] TONSILLECTOMY TUBAL LIGATION Current Outpatient Medications [...] extend her arms outwards appropriately in botharms, pour-ti-ioua testing within normal. There is no dysmetria. [...] reviewed the resident's note. documented in this encounterSt. Rita's Hospital03-14-2024 History of Present illness Narrative* Malinda Arrington RN - 11/06/2023 3:46 PM EDT Patient is here for consult with Dr. Anna. Orders received for CBC, iron studies every 2 months (print out orders). F/u in 4 months. Calendar given to family member and labs orders to be drawn at [facility]. documented in this encounterSt. Rita's Hospital03-14-2024 History of Present illness Narrative* Adam Anna MD - 11/06/2023 3:30 PM EDT Images from the original note were not included. [facility] 11/06/23 Jose David is a 78 y.o. year old female seen today in the oncology clinic. Chief Complaint Patient presents with Follow-up History of Present Illness: Mrs. David is a 78 y.o. female with no significant past medical history [facility]23 due to blurry vision in left eye, she was told her optic disc was swollen and the patient was given a referral to [facility]addie. Over the weekend patients vision in left eye continued to worsen and eventually lost all vision in left eye. Patient was seen by caddie 09/22/2023 and time she would decreased vision also in her right eye. It was recommended that she go straight to the emergency department, for concern for giant cell arteritis. Initially she went to [facility] where they gave her Solu-Medrol 250 mg IV 1 dose and then transferred her to [facility]. When she arrived at [facility] she had complete vision loss in [...] 09/25/2023 Performed by Kristel Reid MD at [facility] TONSILLECTOMY TUBAL LIGATION No family history [...] this note were generated using voice recognition [employer] dictation software. Although every effort was made to ensure the accuracy of this automated apartment maintenance, some errors in apartment maintenance may have occurred. CC: Patient Care Team: Giovanna Rohrbacher, VP PURCHASING-GANTRY CRANE OPERATOR as PCP - General (Nurse Practitioner) Adam Anna MD as Consulting Physician (Hematology) PCP:Giovanna Graf Referring MD: John Patel DO documented in this encounterSt. Rita's Hospital03-14-2024 Instructions* Patient Instructions* Adam Anna MD - 11/06/2023 3:30 PM EDT CBC, iron studies every 2 months (print out orders). F/u in 4 months. documented in this encounterSt. Rita's Hospital02-23-2024 Miscellaneous Notes* Telephone Encounter - Beronica [...] or 90 day supply preferred:30 Pharmacy Name: [facility]/pharmacy #[id number] - [place], [place] - If already [...] will have to fill. documented in this encounterSt. Rita's Hospital02-23-2024 Telephone encounter Note* Telephone Encounter - [...] pharmacy - specify address & phone number [facility] [employer] [id number] Telephone encounter Note* Telephone Encounter - Shadia Hua - 10/17/2023 11:39 AM EST I have attempted to contact this patient by phone with the following results: left detailed messageregarding that since patient has not been seen in clinic PCP or the provider that prescribed medication will have to fill. [facility]02-22-[facility] History of Present illness Narrative* Mouna Bautista MD - 10/16/2023 9:10 AM EST Images from the original note were not included. [facility] V[facility] [address] [facility] [phone] Subjective: Patient ID: Jose David is a [...] Vision blurred Stroke-like symptoms Giant cell arteritis ([facility]) Current Outpatient Medications: acetaminophen (TYLENOL EXTRA [...] orders for this visit: Giant cell arteritis ([facility]) Plan Plan: Referral to rheumatology for management of temporal arteritis. Continue steroids in the meanwhile Mouna Bautista MD documented in this encounterSt. Rita's Hospital02-05-2024 Miscellaneous Notes* Telephone Encounter - Rosa [...] OPINION? - Patient saw Dr. Byrne at [facility] Hospital Visit 09/23-08/26/2023 5. PATIENT IS SCHEDULED ON/WITH: - 12/05/2023 at 10:[address] Santana documented in this encounterSt. Rita's Hospital02-05-2024 Telephone encounter Note* Telephone Encounter - [...] OPINION? - Patient saw Dr. Byrne at [facility] Hospital Visit 09/23-08/26/2023 5. PATIENT IS SCHEDULED ON/WITH: - 12/05/2023 at 10:[address]ana [facility]02-02-[facility] Nurse Note* Caryn Briceno RN - 09/26/2023 5:38 PM EST Patient alert and oriented. IV and telemetry discontinued. All discharge instructions have been reviewed and are understood by the patient and daughter. Patient left the unit via wheelchair with all of their belongings and in no distress. Patient discharged home. [facility] Nurse Note* Caryn Briceno RN - 09/26/2023 5:38 PM EST Patient alert and oriented. IV and telemetry discontinued. All discharge instructions have been reviewed and are understood by the patient and daughter. Patient left the unit via wheelchair with all of their belongings and in no distress. Patient discharged home. documented in this encounterSt. Rita's Hospital02-02-2024 Hospital course Narrative* Bart Milian MD [...] time of the discharge: peripheral smear, flowcytometry, [facility] Course Jose Davidis a 78 y.o.female with no significant past medical history, she presented to the hospital with bilateral vision loss. Patient started to notice blurry vision in her left eye 09/19, she was evaluated by Ophthalmology outpatient who referred her to eye center in [place]. Over the weekend her left eye vision significantly deteriorated to a point where she could no longer see. On 09/22, she started developing vision loss in her right eye. She visited the eye center who sent her to ER right away. Patient initially presented to the [facility] ER, she was given Solu-Medrol 250 mg IV once and transferred to [facility] for further workup. Patient was evaluated [...] Your Medications These medications were sent to [facility]/pharmacy #[id number] - [facility] [address] [facility] [address] [address] aspirin 81 mg cyanocobalamin 1000 MCG tablet [...] diet Regular Texture Adult diet John Patel [address] [facility] [id number] Schedule an appointment as soon as possible for a visit in 1 week(s) Jt Jasso MD [address] Rheumatology [facility] [phone] Schedule an appointment as soon as possible for a visit in 2 week(s) Joni Pizano MD [address] [facility] [address] [place] [phone] Schedule an appointment as soon as possible for a visit in 2 week(s) Sandy Pizano MD [address] [facility], [address], [address] [facility] [phone] Schedule an appointment as soon as possible for a visit in 1 month(s) Montana Bartlett MD [address] [facility] [address] Schedule an appointment as soon [...] questions. Electronically signed by: BART MILIAN MD [facility] Physician [facility], Department of Internal Medicine 09/26/23 1:16 PM documented in this encounterSt. Rita's Hospital02-02-2024 Hospital Discharge instructions* Discharge Instructions* Bart Milian MD - 09/26/2023 1:15 PM EST You are started on Aspirin to reduce half-way risk of vascular complications with you suspected condition (giant cell arteritis) also it will help with preventing thrombosis (clotting) given your Thrombocytosis (elevated platelet count). Please discuss any concerns with your primary care provider, consultant luxury and auto. vice president jaguar brand (ex ) or mechanical energy engineer Discuss with primary care or consultant luxury and auto. vice president jaguar brand (ex ) DEXA scan as you are expected to be on steroid medications for prolonged period of time (up to 6 months). Log term steroids can cause Osteoporosis. * Attachments The following attachments cannot be sent through Care Everywhere. * Polymyalgia rheumatica and giant cell arteritis ([place]aur[place]) documented in this encounterSt. Rita's Hospital02-02-2024 History of Present illness Narrative* Kellie Shah MD - 09/26/2023 12:30 PM EST Images from the original note were not included. [facility] Rheumatology PROGRESS NOTE DATE OF ADMISSION 09/23/2023 12:25 AM REASON FOR CONSULTATION: Acute B/L sudden painless vision loss concerning for B/l [facility] REFERRING PHYSICIAN: Goran Thomas MD PCP JOHN PATEL, ASSESSMENT AND PLAN: B/L vision loss likely 2/2 GCA -Pt's initial symptoms were blur vision in L eye but unfortunately when she presented to [facility] she had complete vision loss in [...] SSA, SSB, scleroderma antibody, Tiki 1, Mejia, SCOOP FILLER, anti dsDNA, anti chromatin were negative. -No [...] no significant past medical history presented to [facility] 09/24 for concerns of vision loss in left eye. Patient was evaluated by [facility] on 09/19/2023 due to blurry vision left [...] concerns of giant cell arteritis. Initially at [facility] she was given Solu-Medrol 250 mg IV 1 dose and then transferred to [facility]. On presenting to [facility], she had complete vision loss in both eyes. She was started on IV Solu-Medrol 1000 mg for 3 days. She underwent bilateral temporal artery biopsy on 09/25/2023. During this admission she had workup done which showed positive SILVIA screen, mildly elevated rheumatoid factor at 21 and elevated anticentromere antibody. Anca ribosomal antibody, SSA, SSB, scleroderma antibody, Tiki 1, Mejia, SCOOP FILLER, anti dsDNA, anti chromatin were negative. PAST MEDICAL HISTORY: History reviewed. No pertinent past medical history. PAST SURGICAL HISTORY: Past Surgical History: Procedure Laterality Date APPENDECTOMY BIOPSY ARTERY TEMPORAL Bilateral 09/25/2023 Performed by Kristel Reid MD at [facility] TONSILLECTOMY TUBAL LIGATION ALLERGIES: Allergies Allergen [...] of the major arterial structures in the [place] of [place]. The paranasal sinuses are clear. [...] of the major arterial structures in the [place]. The paranasal sinuses are clear. [...] from the original note were not included. [facility] [place] [facility] Progress Note Subjective: Status post [...] and plan of care Jose De León MD, FACS 11:24 AM 09/26/2023 * Bart Milian MD - 09/25/2023 3:00 PM EST Images from the original note were not included. [facility] Progress Note 09/25/2023 Patient Name: [...] 09/25/2023 Performed by Kristel Reid MD at [facility] TONSILLECTOMY TUBAL LIGATION OBJECTIVE Vital Signs: [...] presents to the emergency department from her caddie's office. She was being evaluated with an caddie for possible giant cell arthritis. She said [...] from the original note were not included. [facility] Neurology General Neurology Consultation Note Consult Neurology Service: [phone] Primary Team: [facility] Chief Complaint and Reason [...] was given referral to eye center in [facility], on Friday and Friday, vision on the left eye worsened significantly and she lost her vision on the left eye. On Friday 09/22, patient came to [place] to see an eye doctor, whoasked her to go to the ED. patient initially went to [facility], given Solu-Medrol 250 mg IVonce, transferred to [facility] for further workup and ophthalmology evaluation. According to the patient, her right eye vision worsened significantly on Friday, and she lost her vision on both eyes. Patient had no past medical history, she has not taking any scheduled medications, patient lives with her daughter, she is driving and working. Walking with no assistive devices. Upon initial assessment in [facility], patient had complete vision loss on [...] CTH, head and neck CTA done at [facility], reportedly unremarkable Impression: Binocular vision loss [...] to Friday 12-1:00 p.m. Primary Neurology service: [phone] Consult neurology service: [phone] Resident Stroke Service: [phone] If the patient belongs to the Stroke [...] from the original note were not included. [facility] Hospitalists Progress Note 09/24/2023 Patient [...] IgG 992 635 - 1,741 mg/dL [place] Chains 2.91 (H) 0.33 - 1.94 [...] of the major arterial structures in the [place] of [place]. The paranasal sinuses are clear. [...] of the major arterial structures in the [place]. The paranasal sinuses are clear. [...] from the original note were not included. [facility] Neurology General Neurology Consultation Note Consult Neurology Service: [phone] Primary Team: [facility] Chief Complaint and Reason [...] was given referral to eye center in [facility], on Friday and Friday, vision on the left eye worsened significantly and she lost her vision on the left eye. On Friday 09/22, patient came to [place] to see an eye doctor, whoasked her to go to the ED. patient initially went to [facility], given Solu-Medrol 250 mg IVonce, transferred to [facility] for further workup and ophthalmology evaluation. According to the patient, her right eye vision worsened significantly on Friday, and she lost her vision on both eyes. Patient had no past medical history, she has not taking any scheduled medications, patient lives with her daughter, she is driving and working. Walking with no assistive devices. Upon initial assessment in [facility], patient had complete vision loss on [...] CTH, head and neck CTA done at [facility], reportedly unremarkable Impression: Binocular vision loss [...] to Friday 12-1:00 p.m. Primary Neurology service: [phone] Consult neurology service: [phone] Resident Stroke Service: [phone] If the patient belongs to the Stroke [...] note were not included. [facility] Progress Note 09/23/2023 Patient Name: [...] can correct any mistakes. documented in this encounterSt. [facility]02-02-2024 Progress note* Discharge Planning Note - [...] - Sophia Rajan RN 09/26/23 11:05 AM [place]02-02-2024 Miscellaneous Notes* Discharge Planning Note - Sophia [...] at the bedside 7. Instruct patient/ patient access representative about use of safety devices 8. Include patient/ patient access representative in decisions related to safety Note: Evaluation of progress towards goal: No reports of injury during shift. Safety measures in place * Plan of Care - Jc Pelayo RN - 09/25/2023 11:52 PM EST Problem: Low Risk Fall Score Description: Clifford Fall Score of 0 - 24 or indicated by [facility] Assessment Goal: Patient should be free from fall Description: Interventions: 1. [place] to environment 2. Hourly rounds addressing the [...] non-skid footwear 11. Teach patient and patient access representative to maintain environment for safety and [...] Description: INTERVENTIONS: 1. Encourage patient or legal access representative to report early pain and ask [...] per policy 9. Teach patient or legal access representative interventions for comforting Outcome: Progressing Note: [...] at the bedside 7. Instruct patient/ patient access representative about use of safety devices 8. Include patient/ patient access representative in decisions related to safety Outcome: [...] hygiene technique 7. Identify and instruct patient/patient access representative in use of appropriate isolation precautionsfor identified infection/symptoms 8. Provide and discuss with patient/patient access representative on educational MDRO sheet 9. Encourage and monitor nutritional status daily and consult patient consumer marketer if indicated 10. Implement neutropenic guidelines as needed 11. Review exposure to history of communicable disease and recent travel history on admission 12. Encourage annual influenza vaccine 13. Encourage pneumonia vaccine Outcome: Progressing Note: Evaluation of progress towards goal: Patient free from signs of infection. Afebrile. Continueto Monitor. Problem: Knowledge Deficit Goal: Patient/patient access representative demonstrates understanding of disease process, treatment [...] be free from fall Description: Interventions: 1. [place] to environment 2. Hourly rounds addressing the [...] non-skid footwear 11. Teach patient and patient access representative to maintain environment for safety and engage in all aspects of fall prevention program Outcome: Progressing Note: Evaluation of progress towards goal: Patient free from falls and injury. Continue to monitor. Problem: Moderate - High Risk Fall Score Description: Clifford Fall Score of =/> 25 or indicated by [facility] Assessment Goal: Patient should be free from fall Description: Interventions: 1. [place] to environment 2. Hourly rounds addressing the [...] non-skid footwear 11. Teach patient and patient access representative to maintain environment for safety and [...] (cane, walker) within reach 19. Request patient access representative bring adaptive equipment/mobility aids from home or obtain and provide as needed 20. Consult pharmacy regarding effects of med's affecting mobility, cognition, and alternatives 21. Obtain physician order for PT if risk factors associated with mobility are present 22. Obtain physician order for OT as appropriate 23. Utilize diversional activities 24. Educate patient and patient access representative how to maintain a safe environment during visitationtimes (notify nurse prior to leaving bedside) 25. Consider appropriateness of medical or non-front office medical assistant 26. Set up voiding schedule as [...] days ago. She was evaluated by her caddie who felt that vision loss was secondary [...] hemodynamically stable. Condition: stable Kristel Reid MD [facility] * Plan of Care - Jc Pelayo RN - 09/24/2023 11:51 PM EST Problem: Low Risk Fall Score Description: Clifford Fall Score of 0 - 24 or indicated by [facility] Assessment Goal: Patient should be free from fall Description: Interventions: 1. [place] to environment 2. Hourly rounds addressing the [...] non-skid footwear 11. Teach patient and patient access representative to maintain environment for safety and [...] Description: INTERVENTIONS: 1. Encourage patient or legal access representative to report early pain and ask [...] per policy 9. Teach patient or legal access representative interventions for comforting Outcome: Progressing Note: [...] at the bedside 7. Instruct patient/ patient access representative about use of safety devices 8. Include patient/ patient access representative in decisions related to safety Outcome: [...] hygiene technique 7. Identify and instruct patient/patient access representative in use of appropriate isolation precautionsfor identified infection/symptoms 8. Provide and discuss with patient/patient access representative on educational MDRO sheet 9. Encourage and monitor nutritional status daily and consult patient consumer marketer if indicated 10. Implement neutropenic guidelines as needed 11. Review exposure to history of communicable disease and recent travel history on admission 12. Encourage annual influenza vaccine 13. Encourage pneumonia vaccine Outcome: Progressing Note: Evaluation of progress towards goal: Patient afebrile, Monitoring labs. Problem: Knowledge Deficit Goal: Patient/patient access representative demonstrates understanding of disease process, treatment [...] Description: INTERVENTIONS: 1. Encourage patient or legal access representative to report early pain and ask [...] per policy 9. Teach patient or legal access representative interventions for comforting Outcome: Progressing Note: [...] at the bedside 7. Instruct patient/ patient access representative about use of safety devices 8. Include patient/ patient access representative in decisions related to safety Outcome: [...] hygiene technique 7. Identify and instruct patient/patient access representative in use of appropriate isolation precautionsfor identified infection/symptoms 8. Provide and discuss with patient/patient access representative on educational MDRO sheet 9. Encourage and monitor nutritional status daily and consult patient consumer marketer if indicated 10. Implement neutropenic guidelines as [...] Description: INTERVENTIONS: 1. Encourage patient or legal access representative to report early pain and ask [...] per policy 9. Teach patient or legal access representative interventions for comforting Outcome: Progressing Note: [...] at the bedside 7. Instruct patient/ patient access representative about use of safety devices 8. Include patient/ patient access representative in decisions related to safety Outcome: [...] hygiene technique 7. Identify and instruct patient/patient access representative in use of appropriate isolation precautionsfor identified infection/symptoms 8. Provide and discuss with patient/patient access representative on educational MDRO sheet 9. Encourage and monitor nutritional status daily and consult patient consumer marketer if indicated 10. Implement neutropenic guidelines as needed 11. Review exposure to history of communicable disease and recent travel history on admission 12. Encourage annual influenza vaccine 13. Encourage pneumonia vaccine Outcome: Progressing Note: Evaluation of progress towards goal: Patient receiving antibiotics as ordered. Continue to monitor. Problem: Knowledge Deficit Goal: Patient/patient access representative demonstrates understanding of disease process, treatment [...] of 0 - 24 or indicated by [facility] Assessment Goal: Patient should be free from fall Description: Interventions: 1. [place] to environment 2. Hourly rounds addressing the [...] non-skid footwear 11. Teach patient and patient access representative to maintain environment for safety and [...] at the bedside 7. Instruct patient/ patient access representative about use of safety devices 8. Include patient/ patient access representative in decisions related to safety Outcome: [...] hygiene technique 7. Identify and instruct patient/patient access representative in use of appropriate isolation precautionsfor identified infection/symptoms 8. Provide and discuss with patient/patient access representative on educational MDRO sheet 9. Encourage and monitor nutritional status daily and consult patient consumer marketer if indicated 10. Implement neutropenic guidelines as needed 11. Review exposure to history of communicable disease and recent travel history on admission 12. Encourage annual influenza vaccine 13. Encourage pneumonia vaccine Outcome: Progressing Note: Evaluation of progress towards goal: Patient has no signs and symptoms of infection. Problem: Low Risk Fall Score Description: Clifford Fall Score of 0 - 24 or indicated by [facility] Assessment Goal: Patient should be free from fall Description: Interventions: 1. [place] to environment 2. Hourly rounds addressing the [...] non-skid footwear 11. Teach patient and patient access representative to maintain environment for safety and engage in all aspects of fall prevention program Outcome: Progressing Note: Evaluation of progress towards goal: Patient remained free from falls. Will continue to utilized fall prevention measures. [facility] of care note * Plan [...] at the bedside 7. Instruct patient/ patient access representative about use of safety devices 8. Include patient/ patient access representative in decisions related to safety Note: Evaluation of progress towards goal: No reports of injury during shift. Safety measures in place [facility]02-01-[facility] Plan of care note* Plan of Care - Jc Pelayo RN - 09/25/2023 11:52 PM EST Problem: Low Risk Fall Score Description: Clifford Fall Score of 0 - 24 or indicated by [facility] Assessment Goal: Patient should be free from fall Description: Interventions: 1. [place] to environment 2. Hourly rounds addressing the [...] non-skid footwear 11. Teach patient and patient access representative to maintain environment for safety and engage in all aspects of fall prevention program Outcome: Progressing Note: Evaluation of progress towards goal: Patient remained free from falls. Will continue to utilized fall prevention measures. [facility]02-01[facility] Progress note* Discharge Planning Note - Sophia [...] - Sophia Rajan RN 09/25/23 1:[address] [facility]02-01[facility] Plan of care note* Plan of Care - Sabas Snow RN - 09/25/2023 12:35 PM EST Problem: Pain Goal: Patient goal is pain score less than 4, able to rest, and participant in treatment plan as appropriate Description: INTERVENTIONS: 1. Encourage patient or legal access representative to report early pain and ask [...] per policy 9. Teach patient or legal access representative interventions for comforting Outcome: Progressing Note: [...] at the bedside 7. Instruct patient/ patient access representative about use of safety devices 8. Include patient/ patient access representative in decisions related to safety Outcome: [...] hygiene technique 7. Identify and instruct patient/patient access representative in use of appropriate isolation precautionsfor identified infection/symptoms 8. Provide and discuss with patient/patient access representative on educational MDRO sheet 9. Encourage and monitor nutritional status daily and consult patient consumer marketer if indicated 10. Implement neutropenic guidelines as needed 11. Review exposure to history of communicable disease and recent travel history on admission 12. Encourage annual influenza vaccine 13. Encourage pneumonia vaccine Outcome: Progressing Note: Evaluation of progress towards goal: Patient free from signs of infection. Afebrile. Continueto Monitor. Problem: Knowledge Deficit Goal: Patient/patient access representative demonstrates understanding of disease process, treatment [...] of 0 - 24 or indicated by [facility] Assessment Goal: Patient should be free from fall Description: Interventions: 1. [place] to environment 2. Hourly rounds addressing the [...] non-skid footwear 11. Teach patient and patient access representative to maintain environment for safety and engage in all aspects of fall prevention program Outcome: Progressing Note: Evaluation of progress towards goal: Patient free from falls and injury. Continue to monitor. Problem: Moderate - High Risk Fall Score Description: Clifford Fall Score of =/> 25 or indicated by [facility] Assessment Goal: Patient should be free from fall Description: Interventions: 1. [place] to environment 2. Hourly rounds addressing the [...] non-skid footwear 11. Teach patient and patient access representative to maintain environment for safety and [...] (cane, walker) within reach 19. Request patient access representative bring adaptive equipment/mobility aids from home or obtain and provide as needed 20. Consult pharmacy regarding effects of med's affecting mobility, cognition, and alternatives 21. Obtain physician order for PT if risk factors associated with mobility are present 22. Obtain physician order for OT as appropriate 23. Utilize diversional activities 24. Educate patient and patient access representative how to maintain a safe environment during visitationtimes (notify nurse prior to leaving bedside) 25. Consider appropriateness of medical or non-front office medical assistant 26. Set up voiding schedule as appropriate (every 2 hours) Outcome: Progressing Note: Evaluation of progress towards goal: Patient free from falls and injury. Continue to monitor. [facility] [id number] Consult note* Kellie Shah MD - 09/25/2023 8:47 AM ESTAssociated Order(s): IP CONSULT TO RHEUMATOLOGY Images from the original note were not included. 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 -No concern for RA or scleroderma given lack of clinical symptoms Discussed with attending Dr. Romero Shah PGY-5, Rheumatology CHIEF COMPLAINT: Visual loss HISTORY OF PRESENT ILLNESS: Jose David is a 78 y.o. White or female who presents with no significant past medical history presented to [facility] 09/24 for concerns of vision loss in left eye. Patient was evaluated by manager farm on 09/19/2023 due to blurry vision left [...] concerns of giant cell arteritis. Initially at [facility] she was given Solu-Medrol 250 mg IV 1 dose and then transferred to [facility]. On presenting to [facility], she had complete vision loss in both eyes. She was started on IV Solu-Medrol 1000 mg for 3 days. She underwent bilateral temporal artery biopsy on 09/25/2023. During this admission she had workup done which showed positive SILVIA screen, mildly elevated rheumatoid factor at 21 and elevated anticentromere antibody. Anca ribosomal antibody, SSA, SSB, scleroderma antibody, Tiki 1, Mejia, SCOOP FILLER, anti dsDNA, anti chromatin were negative. PAST [...] of the major arterial structures in the [place]. The paranasal sinuses are clear. [...] of the major arterial structures in the [place]. The paranasal sinuses are clear. [...] IgG 992 635 - 1,741 mg/dL [place] Chains 2.91 (H) 0.33 - 1.94 [...] I agree with the assessment and plan. [facility]02-01-[facility] Consult note* Kellie Shah MD - 09/25/2023 8:47 AM ESTAssociated Order(s): IP CONSULT TO RHEUMATOLOGY Images from the original note were not included. 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 -No concern for RA or scleroderma given lack of clinical symptoms Discussed with attending Dr. Romero Shah PGY-5, Rheumatology CHIEF COMPLAINT: Visual loss HISTORY OF PRESENT ILLNESS: Jose David is a 78 y.o. White or female who presents with no significant past medical history presented to [facility] 09/24 for concerns of vision loss in left eye. Patient was evaluated by manager farm on 09/19/2023 due to blurry vision left [...] concerns of giant cell arteritis. Initially at [facility] she was given Solu-Medrol 250 mg IV 1 dose and then transferred to [facility]. On presenting to [facility], she had complete vision loss in both eyes. She was started on IV Solu-Medrol 1000 mg for 3 days. She underwent bilateral temporal artery biopsy on 09/25/2023. During this admission she had workup done which showed positive SILVIA screen, mildly elevated rheumatoid factor at 21 and elevated anticentromere antibody. Anca ribosomal antibody, SSA, SSB, scleroderma antibody, Tiki 1, Mejia, SCOOP FILLER, anti dsDNA, anti chromatin were negative. PAST [...] of the major arterial structures in the [place]. The paranasal sinuses are clear. [...] of the major arterial structures in the [place]. The paranasal sinuses are clear. [...] IgG 992 635 - 1,741 mg/dL [place] 2.91 (H) 0.33 - 1.94 [...] assessment and plan. * Faisal Rascon APRN-SENIOR CORE JAVA DEVELOPER - 09/24/2023 10:37 AM EST Images from the original note were not included. Vascular History and Physical Examination/Consultation Note Reason for Consultation Bilateral temporal artery biopsy, concern for giant cell arteritis History and Present Illness Jose David is a 78 y.o. White or female who presents to the emergency department from her caddie's office. She was being evaluated with an caddie for possible giant cell arthritis. She said [...] or concerns regarding management. ALANNA Guzman [facility] [place] Office/After hours: [phone] ALANNA Guzman 09/24/23 1521 * Bayron Denise - 09/23/2023 4:37 PM ESTAssociated Order(s): IP CONSULT TO SPIRITUAL CARE Summary: Spiritual Care Consult for Advance Directive Assistance Spiritual Care Consult for Advance Directive Assistance Advance Directive: Informal Waiter/Waitress provided patient with education on the need for advance directives and a copy of the [place] Advance Directive packet. Informal Waiter/Waitress assisted patient in completing the advance directives. Patient completed and signed a healthcare power of associate attorney. Patient was given the original and a copy. One copy placed in patient's chart. A warehouse order filler is available 17/03 to offer spiritual and emotional support and may be reached through the [facility] sand mill operator facing sand at [phone]. * Montana Bartlett MD - 09/23/2023 12:15 PM ESTAssociated Order(s): IP CONSULT TO OPHTHALMOLOGY Date: Reason for consult: I have been asked to evaluate the eyes of this 78-year-old lady who noticed sudden onset of foggy in the left eye 4 days ago this rapidly progressed to complete loss of vision in the left eye.. She saw an manager farm who indicated to her that she had [...] the patient was given a referral to caddie. Over the weekend patients vision in left eye continued to worsen and eventually lost all vision in left eye. Patient was seen by caddie 09/22/2023 and time she would decreased vision also in her right eye. It was recommended that she go straight to the emergency department, for concern for giant cell arteritis. Initially she went to [facility] where they gave her Solu-Medrol 250 mg IV 1 dose and then transferred her to [facility]. 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 Caitie Wilder PA-C [facility] [address] [place] [address] September 23, 2023, 10:20 AM Please note that portions of this note were generated using voice recognition [employer] dictation software. Although every effort was made to ensure the accuracy of this automated apartment maintenance, some errors in apartment maintenance may have occurred. I have personally performed [...] need to start aspirin Joni PIZANO M.D. [facility] Day time contact: After hours answering service: [phone] [place] [address] * Carlitos Caraballo MD - 09/23/2023 12:53 AM ESTAssociated Order(s): IP CONSULT TO NEUROLOGY Images from the original note were not included. [facility] Neurology General Neurology Consultation Note Consult Neurology Service: [phone] Primary Team: SAMUEL Chief Complaint and Reason [...] was given referral to eye center in [facility], on Friday and Friday, vision on the left eye worsened significantly and she lost her vision on the left eye. On Friday 09/22, patient came to [facility] to see an eye doctor, whoasked her to go to the ED. patient initially went to [facility], given Solu-Medrol 250 mg IVonce, transferred to [facility] for further workup and ophthalmology evaluation. According to the patient, her right eye vision worsened significantly on Friday, and she lost her vision on both eyes. Patient had no past medical history, she has not taking any scheduled medications, patient lives with her daughter, she is driving and working. Walking with no assistive devices. Upon initial assessment in [facility], patient had complete vision loss on [...] Reportedly ESR and CRP were elevated at [facility] Imaging: CTH, head and neck CTA done at [facility], reportedly unremarkable Other Testing: None Assessment: [...] follow Carlitos Caraballo MD PGY-3, Neurology Resident [facility] Staffed with: (Dr. Byrne) This patient is being followed by the Neurology Resident service. Contact attending directly during these hours: Friday to 7:30-8:30 A.M. to Friday 12-1:00 p.m. Primary Neurology service: [phone] Consult neurology service: [phone] Resident Stroke Service: [phone] If the patient belongs to the Stroke [...] Sandy Pizano MD, PhD documented in this [facility]02-01-2024 Procedure note* Op Note - Kristel Reid [...] days ago. She was evaluated by her caddie who felt that vision loss was secondary [...] hemodynamically stable. Condition: stable [facility] MD [facility] Attending History and physical note* Kristel Reid MD - 09/25/2023 7:30 AM EST HISTORY AND PHYSICAL INTERVAL NOTE: Jsoe David 1945 [id number] H&P reviewed. The patient was examined and there are no changes to the H&P. Kristel Reid MD Source Note - Faisal Rascon APRN-SENIOR CORE JAVA DEVELOPER - 09/24/2023 10:37 AM EST Images from the original note were not included. Vascular History and Physical Examination/Consultation Note Reason for Consultation Bilateral temporal artery biopsy, concern for giant cell arteritis History and Present Illness Jose David is a 78 y.o. White or female who presents to the emergency department from her caddie's office. She was being evaluated with an caddie for possible giant cell arthritis. She said [...] or concerns regarding management. ALANNA Guzman [facility] [place] Office/After hours: [phone] ALANNA Guzman 09/24/23 1521 ALANNA Guzman 09/25/23 0730 [place]02-01-2024 History and physical note* Kristel Reid MD - 09/25/2023 7:30 AM EST HISTORY AND PHYSICAL INTERVAL NOTE: Jose David 1945 [id number] H&P reviewed. The patient was examined and [...] presents to the emergency department from her caddie's office. She was being evaluated with an caddie for possible giant cell arthritis. She said [...] or concerns regarding management. ALANNA Guzman [facility] [place] Office/After hours: [phone] ALANNA Guzman 09/24/23 1521 ALANNA Guzman 09/25/23 0730 * Nandini Walters MD - 09/23/2023 12:34 AM EST Images from the original note were not included. [facility] History and Physical 09/23/2023 [...] on ophthalmology recommendation, patient saw Ophthalmology in [place] today evaluated for possible giant cell arthritis, [...] pedis pulses present and equal bilaterally Skin: [place], warm, dry; no rashes or lesions Neurologic: [...] Electronically signed by: MD Nandini PAREDES M.D. [facility] This note was completed using a voice apartment maintenance system. Every effort was made to ensure accuracy. However, inadvertent computerized apartment maintenance errors may be present. [facility] Plan of care note * Plan of Care - Jc Pelayo RN - 09/24/2023 11:51 PM EST Problem: Low Risk Fall Score Description: Clifford Fall Score of 0 - 24 or indicated by [facility] Assessment Goal: Patient should be free from fall Description: Interventions: 1. [place] to environment 2. Hourly rounds addressing the [...] non-skid footwear 11. Teach patient and patient access representative to maintain environment for safety and engage in all aspects of fall prevention program Outcome: Progressing Note: Evaluation of progress towards goal: Patient remained free from falls. Will continue to utilized fall prevention measures. [facility] Plan of care note* Plan of Care - Faiza Valverde RN - 09/24/2023 11:08 AM EST Problem: Pain Goal: Patient goal is pain score less than 4, able to rest, and participant in treatment plan as appropriate Description: INTERVENTIONS: 1. Encourage patient or legal access representative to report early pain and ask [...] per policy 9. Teach patient or legal access representative interventions for comforting Outcome: Progressing Note: [...] at the bedside 7. Instruct patient/ patient access representative about use of safety devices 8. Include patient/ patient access representative in decisions related to safety Outcome: [...] hygiene technique 7. Identify and instruct patient/patient access representative in use of appropriate isolation precautionsfor identified infection/symptoms 8. Provide and discuss with patient/patient access representative on educational MDRO sheet 9. Encourage and monitor nutritional status daily and consult patient consumer marketer if indicated 10. Implement neutropenic guidelines as needed 11. Review exposure to history of communicable disease and recent travel history on admission 12. Encourage annual influenza vaccine 13. Encourage pneumonia vaccine Outcome: Progressing Note: Evaluation of progress towards goal: Patient afebrile, Monitoring labs. Problem: Knowledge Deficit Goal: Patient/patient access representative demonstrates understanding of disease process, treatment plan,medications, and discharge instructions Description: INTERVENTIONS 1. Complete learning assessment and assess knowledge base 2. Provide teaching at level of understanding 3. Provide teaching via preferred learning method(s) Outcome: Progressing Note: Evaluation of progress towards goal: POC reviewed with patient, verbalizes understanding -[facility] [place]01-31-2024 Progress note* Discharge Planning Note - Sophia [...] - Sophia Rajan RN 09/24/23 10:57 AM -[facility] [place]01-31-2024 Consult note* ALANNA Guzman - 09/24/2023 10:37 AM EST Images from the original note were not included. Vascular History and Physical Examination/Consultation Note Reason for Consultation Bilateral temporal artery biopsy, concern for giant cell arteritis History and Present Illness Jose David is a 78 y.o. White or female who presents to the emergency department from her caddie's office. She was being evaluated with an caddie for possible giant cell arthritis. She said [...] or concerns regarding management. ALANNA Guzman [facility] [place] Office/After hours: [phone] ALANNA Guzman 09/24/23 1521 [facility] Work Phone: [phone] Plan of care note* Plan of Care - Mago Moreau RN - 09/23/2023 9:58 PM EST Problem: Pain Goal: Patient goal is pain score less than 4, able to rest, and participant in treatment plan as appropriate Description: INTERVENTIONS: 1. Encourage patient or legal access representative to report early pain and ask [...] per policy 9. Teach patient or legal access representative interventions for comforting Outcome: Progressing Note: [...] at the bedside 7. Instruct patient/ patient access representative about use of safety devices 8. Include patient/ patient access representative in decisions related to safety Outcome: [...] hygiene technique 7. Identify and instruct patient/patient access representative in use of appropriate isolation precautionsfor identified infection/symptoms 8. Provide and discuss with patient/patient access representative on educational MDRO sheet 9. Encourage and monitor nutritional status daily and consult patient consumer marketer if indicated 10. Implement neutropenic guidelines as needed 11. Review exposure to history of communicable disease and recent travel history on admission 12. Encourage annual influenza vaccine 13. Encourage pneumonia vaccine Outcome: Progressing Note: Evaluation of progress towards goal: monitor for signs and symptoms of infection [facility] Plan of care note* Plan of Care - Sabas Snow RN - 09/23/2023 4:41 PM EST Problem: Pain Goal: Patient goal is pain score less than 4, able to rest, and participant in treatment plan as appropriate Description: INTERVENTIONS: 1. Encourage patient or legal access representative to report early pain and ask [...] per policy 9. Teach patient or legal access representative interventions for comforting Outcome: Progressing Note: [...] at the bedside 7. Instruct patient/ patient access representative about use of safety devices 8. Include patient/ patient access representative in decisions related to safety Outcome: [...] hygiene technique 7. Identify and instruct patient/patient access representative in use of appropriate isolation precautionsfor identified infection/symptoms 8. Provide and discuss with patient/patient access representative on educational MDRO sheet 9. Encourage and monitor nutritional status daily and consult patient consumer marketer if indicated 10. Implement neutropenic guidelines as needed 11. Review exposure to history of communicable disease and recent travel history on admission 12. Encourage annual influenza vaccine 13. Encourage pneumonia vaccine Outcome: Progressing Note: Evaluation of progress towards goal: Patient receiving antibiotics as ordered. Continue to monitor. Problem: Knowledge Deficit Goal: Patient/patient access representative demonstrates understanding of disease process, treatment [...] of 0 - 24 or indicated by [facility] Assessment Goal: Patient should be free from fall Description: Interventions: 1. [place] to environment 2. Hourly rounds addressing the [...] non-skid footwear 11. Teach patient and patient access representative to maintain environment for safety and engage in all aspects of fall prevention program Outcome: Progressing Note: Evaluation of progress towards goal: Patient free from falls and injury. Continue to monitor. [facility]01-30-2024 Consult note* Bayron Denise - 09/23/2023 4:37 PM ESTAssociated Order(s): IP CONSULT TO SPIRITUAL CARE Summary: Spiritual Care Consult for Advance Directive Assistance Spiritual Care Consult for Advance Directive Assistance Advance Directive: Informal Waiter/Waitress provided patient with education on the need for advance directives and a copy of the [place] Advance Directive packet. Informal Waiter/Waitress assisted patient in completing the advance directives. Patient completed and signed a healthcare power of associate attorney. Patient was given the original and a copy. One copy placed in patient's chart. A warehouse order filler is available 17/03 to offer spiritual and emotional support and may be reached through the [facility] sand mill operator facing sand at [phone]. [place]01-30-2024 Progress note* Discharge Planning Note - LIANE [...] care - LIANE KEN 09/23/23 2:07 PM [employer] [employer]01-30-2024 Progress note* Situational Awareness - ALANNA Rosario - 09/23/2023 12:58 PM EST Consulted for MAUREEN to rule out embolic process in setting of sudden vision loss. Discussed with neurology, recommend surface echo with bubble study prior to consideration of MAUREEN. If TTE unremarkable and continued concerns, please let us know. ALANNA Rosario 09/23/23 1300 [facility] Work Phone: [phone] Consult note* Montana Bartlett MD - 09/23/2023 12:15 PM ESTAssociated Order(s): IP CONSULT TO OPHTHALMOLOGY Date: Reason for consult: I have been asked to evaluate the eyes of this 78-year-old lady who noticed sudden onset of foggy in the left eye 4 days ago this rapidly progressed to complete loss of vision in the left eye.. She saw an manager farm who indicated to her that she had [...] is indicated. Thanks Montana Bartlett MD, FACS. [employer] Work Phone: 1(883) 797-602001-30-2024 Consult note* Joni Pizano MD - 09/23/2023 [...] the patient was given a referral to caddie. Over the weekend patients vision in left eye continued to worsen and eventually lost all vision in left eye. Patient was seen by caddie 09/22/2023 and time she would decreased vision also in her right eye. It was recommended that she go straight to the emergency department, for concern for giant cell arteritis. Initially she went to [facility] where they gave her Solu-Medrol 250 mg IV 1 dose and then transferred her to [facility]. 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 Caitie Wilder PA-C [facility] [address] [place] [address] September 23, 2023, 10:20 AM Please note that portions of this note were generated using voice recognition M*Modal dictation software. Although every effort was made to ensure the accuracy of this automated apartment maintenance, some errors in apartment maintenance may have occurred. I have personally performed [...] need to start aspirin Joni PIZANO M.D. [facility] Day time contact: After hours answering service: [phone] [place] [address] [employer] [facility] Work Phone: [phone] Plan of care note* Plan of Care [...] at the bedside 7. Instruct patient/ patient access representative about use of safety devices 8. Include patient/ patient access representative in decisions related to safety Outcome: [...] hygiene technique 7. Identify and instruct patient/patient access representative in use of appropriate isolation precautionsfor identified infection/symptoms 8. Provide and discuss with patient/patient access representative on educational MDRO sheet 9. Encourage and monitor nutritional status daily and consult patient consumer marketer if indicated 10. Implement neutropenic guidelines as needed 11. Review exposure to history of communicable disease and recent travel history on admission 12. Encourage annual influenza vaccine 13. Encourage pneumonia vaccine Outcome: Progressing Note: Evaluation of progress towards goal: Patient has no signs and symptoms of infection. Problem: Low Risk Fall Score Description: Clifford Fall Score of 0 - 24 or indicated by [facility] Assessment Goal: Patient should be free from fall Description: Interventions: 1. [place] to environment 2. Hourly rounds addressing the [...] non-skid footwear 11. Teach patient and patient access representative to maintain environment for safety and engage in all aspects of fall prevention program Outcome: Progressing Note: Evaluation of progress towards goal: Patient remained free from falls. Will continue to utilized fall prevention measures. [facility] [phone] Consult note* Carlitos Caraballo MD - 09/23/2023 12:53 AM ESTAssociated Order(s): IP CONSULT TO NEUROLOGY Images from the original note were not included. [facility] Neurology General Neurology Consultation Note Consult Neurology Service: [phone] Primary Team: [facility] Chief Complaint and Reason [...] was given referral to eye center in [facility], on Friday and Friday, vision on the left eye worsened significantly and she lost her vision on the left eye. On Friday 09/22, patient came to [place] to see an eye doctor, whoasked her to go to the ED. patient initially went to [facility], given Solu-Medrol 250 mg IVonce, transferred to [facility] for further workup and ophthalmology evaluation. According to the patient, her right eye vision worsened significantly on Friday, and she lost her vision on both eyes. Patient had no past medical history, she has not taking any scheduled medications, patient lives with her daughter, she is driving and working. Walking with no assistive devices. Upon initial assessment in [facility], patient had complete vision loss on [...] Reportedly ESR and CRP were elevated at [facility] Imaging: CTH, head and neck CTA done at [facility], reportedly unremarkable Other Testing: None Assessment: [...] follow Carlitos Caraballo MD PGY-3, Neurology Resident [facility] Staffed with: (Dr. Byrne) This patient is being followed by the Neurology Resident service. Contact attending directly during these hours: Friday to 7:30-8:30 A.M. to Friday 12-1:00 p.m. Primary Neurology service: [phone] Consult neurology service: [phone] Resident Stroke Service: [phone] If the patient belongs to the Stroke [...] follow and update Sandy Pizano MD, PhD [facility] [employer] [facility] Work Phone: 1([phone]) 210-599401-30-2024 History and physical note* Nandini Walters MD - 09/23/2023 12:34 AM EST Images from the original note were not included. [facility] Hospitalists History and Physical 09/23/2023 Patient Name: [...] on ophthalmology recommendation, patient saw Ophthalmology in [place] today evaluated for possible giant cell arthritis, [...] pedis pulses present and equal bilaterally Skin: [place], warm, dry; no rashes or lesions Neurologic: [...] Electronically signed by: MD Nandini PAREDES M.D. [facility] This note was completed using a voice apartment maintenance system. Every effort was made to ensure accuracy. However, inadvertent computerized apartment maintenance errors may be present. [facility]* Diagnosis Onset Date Resolution Status GERD (gastroesophageal reflux disease) acuteHospital discharge follow-upacuteTemporal arteritisacuteVision loss, bilateralacute [facility] Work Phone: Evaluation note* Diagnosis Onset Date Resolution Status GERD (gastroesophageal reflux disease) acuteHistory of cataract extraction with lens replacementacuteHospital discharge follow-upacuteTemporal arteritisacuteVision loss, bilateralacuteAcute effusion of left earacuteEustachian tube dysfunctionacute [facility] Work Phone: Evaluation noteNo assessment information available [facility] Work Phone: Evaluation note* Diagnosis Giant cell arteritis (CMS-HCC)- Primary Giant cell arteritis documented in this encounter [facility]* Diagnosis Giant cell arteritis (CMS-HCC)- Primary Giant cell arteritis documented in this encounter [facility]* Diagnosis Vision blurred- Primary Other specified visual disturbances B12 deficiency Thrombocytosis Essential thrombocythemia Vision blurred Other specified visual disturbances Temporal arteritis (CMS-HCC) Giant cell arteritis Stroke-like symptoms documented in this encounter [facility]* Diagnosis Giant cell arteritis (CMS-HCC)- Primary Giant cell arteritis documented in this encounter [facility]* Diagnosis Normocytic anemia- Primary Unspecified anemia Thrombocytosis Essential thrombocythemia Anemia, unspecified type documented in this encounter [facility]* Diagnosis Giant cell arteritis (CMS-HCC)- Primary Giant cell arteritis Stroke-like symptoms Vision blurred Other specified visual disturbances Anemia, unspecified type documented in this encounter [facility]* Diagnosis Normocytic anemia- Primary Unspecified anemia Thrombocytosis Essential thrombocythemia documented in this encounter [facility]* Diagnosis Normocytic anemia- Primary Unspecified anemia Thrombocytosis Essential thrombocythemia Anemia, unspecified type Iron deficiency Disorders of iron metabolism Giant cell arteritis (CMS-HCC) Giant cell arteritis Vision blurred Other specified visual disturbances documented in this encounter [facility]* Diagnosis Onset Date Resolution Status Admit Date Left otitis media acuteFebruary 2024 2:27pmMuscle spasmacuteFebruary 2024 2:27pmNeck painacuteFebruary 2024 2:27pm [facility] Work Phone: Evaluation note* Diagnosis Iron deficiency- Primary Disorders of iron metabolism Normocytic anemia Unspecified anemia Thrombocytosis Essential thrombocythemia Anemia, unspecified type documented in this encounter [facility]* Diagnosis Onset Date Resolution Status Admit Date Bilateral lower extremity edema acuteSeptember 2024 1:04pm [facility] Work Phone: Evaluation note* Diagnosis Iron deficiency- Primary Disorders of iron metabolism Normocytic anemia Unspecified anemia Thrombocytosis Essential thrombocythemia Anemia, unspecified type Giant cell arteritis ([facility]-HCC) Giant cell arteritis documented in this encounter [facility] Discharge instructionsAmbulatory Orders* Referral to Orthopedic Surgery Time Frame: 05/23/25, Location: None [facility] Work Phone: InstructionsNot on filedocumented in this encounter [facility] SystemInstructionsNot on filedocumented in this encounter [facility] SystemInstructionsNot on filedocumented in this encounter [facility] SystemInstructionsNot on filedocumented in this encounter [facility] SystemInstructionsNot on filedocumented in this encounter [facility] SystemReason for referral (narrative)No reason for referral information availableAs[facility]abula [facility] Work Phone: Summary Purpose Family History No [...] Advance Directives No June 22, 2018 4:12pm TypeDate RecordedPatient RepresentativeExplanationDurable Power of Electrical Research Engineer 10/03/2023 8:14 AMDurable Power of Attorney09/23/2023 4:17 PM[facility] Power of AttorneyDate ActivatedDate InactivatedComments09/23/2023 12:33 AM09/26/2023 7:44 PMNameRelationshipHealthcare Agent RelationshipCommunicationRaymond RicardoeySon Health Care Agent* Malinda BritoDaughterFirst Alternate Health Care Agent* NameRelationshipHealthcare Agent RelationshipCommunicationRaymond DickeySon Health Care Agent* Malinda HumphriesughterFirst Alternate Health Care Agent* TypeDate RecordedPatient RepresentativeExplanationDurable Power of Electrical Research Engineer 09/23/2023 4:17 PM[facility] Power of AttorneyCode StatusDate ActivatedDate InactivatedCommentsFull Code09/23/2023 12:33 AM09/26/2023 7:44 PMNameRelationship Healthcare Agent RelationshipCommunicationRaymond RicardoeySonHealth Care Agent* Malinda CruzFirst Alternate Health Care Agent* TypeDate RecordedPatient RepresentativeExplanationDurable Power of Electrical Research Engineer 09/23/2023 4:17 PMOhio Health Care Power of AttorneyCode StatusDate ActivatedDate InactivatedCommentsFull Code09/23/2023 12:33 AM09/26/2023 7:44 PMNameRelationship Healthcare Agent RelationshipCommunicationRaymond RicardoeySonHealth Care Agent* Malinda KirkadrianaraissaDaughterFirst Alternate Health Care Agent* NameRelationshipHealthcare Agent RelationshipCommunicationRaymond DickeySon Health Care Agent* Malinda GreenraissaDaughterFirst Alternate Health Care Agent* NameRelationshipHealthcare Agent RelationshipCommunicationRaymond DickeySon Health Care Agent* Malinda KirkadrianazDaughterFirst Alternate Health Care Agent* NameRelationshipHealthcare Agent RelationshipCommunicationRaymond DickeySon Health Care Agent* Malinda Lofton Alternate Health Care Agent* NameRelationshipHealthcare Agent RelationshipCommunicationRaymsteve Gutierrez Health Care Agent* Malinda Lofton Alternate Health Care Agent* Chief Complaint and Reason for Visit Chief Complaint ESTABLISH Reason for Visit GERD (gastroesophage al reflux disease) Hospital discharge follow-up Temporal arteritis Vision loss, bilateral Chief Complaint ESTABLISH BOTH EARS ARE BLOTHERING HERReason for VisitGERD (gastroesophageal reflux disease) History of cataract extraction with [...] Visit Admit Date Bilateral lower extremity edema Ramseye r 2024 1:04pm Chief Complaint Admit Date Swollen Ankles May 17, 2025 1:04pm 1 week f/u May 23, 2025 9:33am Reason for Visit Admit Date Bilateral lower extremity edema Septcyndiee r 2024 1:04pm At high risk for [...] May 23 025 9:33am Reason for Referral SpecialtyDiagnoses / ProceduresReferred By ContactReferred To Contact Diagnoses B12 deficiency Thrombocytosis Vision blurred Temporal arteritis ([facility]) Procedures Follow-up with primary care provider Bart Milian MD [address] [place] [id number] Referral IDStatusJohnnorth DateExpiration DateVisits RequestedVisits [id number] [id number] / Procedures Referred By ContactReferred To Contact Procedures Adult diet Bart Milian MD [address] [place] [id number] Referral IDStatusReasonStart DateExpiration DateVisits RequestedVisits [id number] Review Additional Source Comments INFORMATION SOURCE (unrecogn ized section and content) DATE CREATED AUTHOR 11/18/2021 [facility] DATE CREATED AUTHOR AUTHOR'S ORGANIZ ATION 01/31/2023 [facility] DATE CREATED AUTHOR AUTHOR'S ORGANIZ ATION 04/15/2023 [facility] DATE CREATED AUTHOR AUTHOR'S ORGANIZ ATION 10/04/2023 [facility] DATE CREATED AUTHOR AUTHOR'S ORGANIZ ATION 07/24/2024 [facility] DATE CREATED AUTHOR AUTHOR'S ORGANIZ ATION 04/04/2025 [facility] DATE CREATED AUTHOR AUTHOR'S ORGANIZ ATION 06/13/2025 [facility] Care Teams (unrecognized sec tion and content) Team Status: Active Member Role Status Dates Giovanna Graf APRN GANTRY CRANE OPERATOR-C Primary Care Provider Active Team Status: Inactive Member Role Status Dates Giovanna Graf APRN GANTRY CRANE OPERATOR-C Primary Care Provider, Attending Provider Active Start: October 16, 2023 End: October 16, 2023 Team Status: Active Member Role Status Dates Giovanna Graf APRN GANTRY CRANE OPERATOR-C Primary Care Provider, Attending Provider Active Start: October 30, 2023 Team Status: Active Member Role Status Dates Giovanna Graf APRN GANTRY CRANE OPERATOR-C Primary Care Provider Active Start: December 29, 2023 Jt Jasso , MDAttending ProviderActiveStart: December 29, 2023 Team Status: Inactive Member Role Status Dates Giovanna Graf APRN GANTRY CRANE OPERATOR-C Primary Care Provider, Attending Provider Active Start: December 29, 2023 End: December 29, 2023 Team Status: Active Member Role Status Dates Giovanna Graf APRN GANTRY CRANE OPERATOR-C Primary Care Provider, Attending Provider Active Start: March 05, 2024 Team Status: Inactive Member Role Status Dates Giovanna Graf APRN GANTRY CRANE OPERATOR-C Primary Care Provider, Attending Provider Active Start: April 13, 2024 End: April 13, 2024 Team Status: Active Member Role Status Dates Giovanna Graf APRN GANTRY CRANE OPERATOR-C Primary Care Provider Active Start: April 302023 Negemini Jasso , MDAttending ProviderActiveStart: April 30, 2024 Team Status: Active Member Role Status Dates Giovanna Graf APRN GANTRY CRANE OPERATOR-C Primary Care Provider, Attending Provider Active Start: July 07, 2024 Team Status: Inactive Member Role Status Dates Giovanna Graf APRN GANTRY CRANE OPERATOR-C Primary Care Provider, Attending Provider Active Start: July 12, 2024 End: July 12, 2024Team MemberRelationshipSpecialtyStart DateEnd Date Giovanna Graf APRN-NP [address] [facility] [place] [address] PCP - GeneralNurse Practitioner10/10/23Team MemberRelationshipSpecialtyStart Date End Date Giovanna Graf APRN-GANTRY CRANE OPERATOR [address] [place] [address] PCP - GeneralNurse Practitioner10/10/23Team MemberRelationshipSpecialtyStart Date End Date John Patel DO [address] [place] [address] PCP - General01/23/17Team MemberRelationshipSpecialtyStart DateEnd Date John Patel DO [address] [place] [address] PCP - General01/23/17Team MemberRelationshipSpecialtyStart DateEnd Date Giovanna Graf APRN-GANTRY CRANE OPERATOR [address] [place] [place] [address] PCP - GeneralNurse Practitioner10/10/23Team MemberRelationshipSpecialtyStart Date End Date Giovanna Graf APRN-NP [address] [place] [address] PCP - GeneralNurse Practitioner10/10/23 Team Status: Inactive Member Role Status Dates Giovanna Graf APRN GANTRY CRANE OPERATOR-C Primary Care Provider Active Start: July 162023 End: July 16kristel Amanda DOAttending ProviderActiveStart: July 16, 2024 End: July 16, 2024 Team Status: Active Member Role Status Dates Giovanna Graf APRN GANTRY CRANE OPERATOR-C Primary Care Provider Active Start: September 02, 2024 Jt Jasso , MDAttending ProviderActiveStart: September 02, 2024 Team Status: Inactive Member Role Status Dates Giovanna Graf APRN GANTRY CRANE OPERATOR-C Primary Care Provider, Attending Provider Active Start: October 13, 2024 End: October 13, 2024 Team Status: Active Member Role Status Dates Giovanna Graf APRN GANTRY CRANE OPERATOR-C Primary Care Provider Active Start: November 06, 2024 Jt Jasso , MDAttending ProviderActiveStart: November 06, 2024 Team Status: Active Member Role Status Dates Giovanna Graf APRN GANTRY CRANE OPERATOR-C Primary Care Provider Active Start: November 22, 2024 Priyanka Cortez CMAAttending ProviderActiveStart: November 22, 2024 Team Status: Active Member Role Status Dates Giovanna Graf APRN GANTRY CRANE OPERATOR-C Primary Care Provider Active Start: December 10, 2024 Alethea Mckeon , DOAttending ProviderActiveStart: December 10, 2024 Team Status: Active Member Role Status Dates Giovanna Graf APRN GANTRY CRANE OPERATOR-C Primary Care Provider Active Start: December 10, 2024 Priyanka Cortez CMAAttending ProviderActiveStart: December 10, 2024 Team Status: Inactive Member Role Status Dates Giovanna Graf APRN GANTRY CRANE OPERATOR-C Primary Care Provider, Attending Provider Active Start: December 16, 2024 End: December 16, 2024Team MemberRelationshipSpecialtyStart DateEnd Date Giovanna Graf APRN-GANTRY CRANE OPERATOR [address] [place] [address] [facility]10/23 Team Status: Inactive Member Role Status Dates Giovanna Graf APRN GANTRY CRANE OPERATOR-C Primary Care Provider Active Start: April 262024 End: May 17, 2025Giovanna Graf APRN GANTRY CRANE OPERATOR-CAttending ProviderActive Start: May 17, 2025 End: May 17, 2025 Team Status: Inactive Member Role Status Dates Giovanna Graf APRN GANTRY CRANE OPERATOR-C Primary Care Provider Active Start: April 262024 End: May 23, 2025Giovanna Graf APRN GANTRY CRANE OPERATOR-CAttending ProviderActive Start: May 23, 2025 End: May 23, 2025Team MemberRelationshipSpecialtyStart DateEnd Date Giovanna Graf APRN-GANTRY CRANE OPERATOR [address] [place] [address] PCP - GeneralNurse Practitioner10/10/23 Goals (unrecognized section and content) Goals may [...] for Visit (unrecogniz ed section and content) ReasonCommentsGiant cell arteritisLeg PainPainful and crampReasonOnset Date CommentsHospital Follow-up09/29/2023SpecialtyDiagnoses / ProceduresReferred By ContactReferred To Contact Diagnoses Vision blurred Stroke-like symptoms CVA symptoms Tono Pan MD [address] [place] [address] Referral IDStatusReasonStart DateExpiration DateVisits RequestedVisits [id number] discharge follow up. Recent TAB.ReasonOnset DateCommentsMed [id number]-up Scheduled Active and Recently Administ ered Medications (unrecognized section and content) Medication Order//09/2023 cyanocobalamin tablet 1,000 mcg 1,000 mcg, oral, Daily, First dose on Fri09/23/23 at 1400 * 0837 (Given - Provider: Kimberly Chin, ASHIA) * 0613 (MAR Hold - Provider: Automatic Transfer Provider - Reason: Patient not available) * 0900 (Dose Auto Held - Provider: Automatic Transfer Provider) * 1151 (MAR Unhold - Provider: Automatic Transfer Provider) * 0857 (Given - Provider: Caryn Briceno, RN) enoxaparin (LOVENOX) syringe 40 mg 40 mg, subcutaneous, Daily, First dose on Fri09/23/23 at 1415, Look-alike/sound-alike medication - verify indication for use. * 0836 (Given - Provider: Kimberly Chin RN) * 0613 (MAR Hold - Provider: Automatic Transfer Provider - Reason: Patient not available) * 0900 (Dose Auto Held - Provider: Automatic Transfer Provider) * 1151 (MAR Unhold - Provider: Automatic Transfer Provider) * 0855 (Given - Provider: Caryn Briceno, RN) methylPREDNISolone sodium succinate (Solu-MEDROL) 1,000 mg in sodium chloride 0.9 % 50 mL IVPB 1,000 mg, intravenous, at 66 mL/hr, Administer over 60 Minutes, Every 24 hours scheduled, First dose on Fri09/24/23 at 0900, For 2 days, May alter blood glucose or insulin requirements. Look-alike/sound-alike medication - verify indication for use. * 1009 (New Bag - Provider: Kimberly Chin RN) * 1109 (Stop Bag - Provider: Faiza Valverde RN) * 0613 (MAR Hold - Provider: Automatic Transfer Provider - Reason: Patient not available) * 0900 (Dose Auto Held - Provider: Automatic Transfer Provider) * 1151 (MAR Unhold - Provider: Automatic Transfer Provider) predniSONE (DELTASONE) tablet 60 mg 60 mg, oral, Daily with breakfast, First dose on Fri09/26/23 at 0800, Look-alike/sound-alike medication - verify indication for use. Food-Drug Interaction Education Required May alter blood glucose or insulin requirements Take/give with food Look-alike/sound-alike medication - verify indication for use. * 0857 (Given - Provider: Caryn Briceno RN) sodium chloride 0.9 % flush 3 mL 3 mL, intravenous, Every 12 hours scheduled, First dose on Fri09/23/23 at 0045 * 1009 (Given - Provider: Kimberly Chin RN) * 2100 (Not Given - Provider: Jc Pelayo RN - Reason: IV infusing) * 0613 (OCT Hold - Provider: Automatic Transfer Provider - Reason: Patient not available) * 0900 (Dose Auto Held - Provider: Automatic Transfer Provider) * 1151 (OCT Unhold - Provider: Automatic Transfer Provider) * 2100 (Not Given - Provider: Jc Pelayo RN - Reason: Other) * 0901 (Given - Provider: Caryn Briceno RN) sulfamethoxazole-trimethoprim (BACTRIM DS) 800-160 mg tablet 1 tablet 1 tablet, oral, 3 times weekly (Once per day on Friday), First dose on Fri09/26/23 at 0900, Indication: PJP prophylaxis * 0857 (Given - Provider: Caryn Briceno RN) Medication Order//09/2023 acetaminophen (TYLENOL) tablet 650 mg 650 mg, oral, 3 times daily PRN, mild pain - pain scale 1-3, moderate pain - pain scale 4-6, Temperature greater than 38.3 C, Starting on Fri09/23/23 at 0032, For 2 doses, [Warning: Total Acetaminophen not to exceed more than 4 grams (4000 mg) in 24 hours] * 0613 (OCT Hold - Provider: Automatic Transfer Provider - Reason: Patient not available) * 1007 (Given - Provider: Jennifer Lawton RN) * 1151 (OCT Unhold - Provider: Automatic Transfer Provider) dextrose (GLUTOSE) 40 % gel 15 g 15 g, oral, As needed, low blood sugar, blood glucose less than 70 mg/dL, Starting on Fri09/23/23 at 0032, If patient conscious and taking PO. If blood glucose is not greater than 70 mg/dL after initial treatment, repeat treatment. * 0613 (OCT Hold - Provider: Automatic Transfer Provider - Reason: Patient not available) * 1151 (OCT Unhold - Provider: Automatic Transfer Provider) dextrose 5 % (D5W) infusion 100 mL/hr, intravenous, Continuous PRN, blood glucose less than 70 mg/dL, Starting on Fri09/23/23 at 0032, Use immediately following dextrose 50% or glucagon treatment for patients who are unconscious or NPO. Contact prescriber for additional orders. If blood glucose is not greater than 70 mg/dL after initial treatment, repeat treatment. * 0613 ([facility] Hold - Provider: Automatic Transfer Provider - Reason: Patient not available) * 1151 ([facility] Unhold - Provider: Automatic Transfer Provider) dextrose 50 % in water (D50W) 50% solution 25 mL 25 mL, intravenous, As needed, low blood sugar, blood glucose less than 70 mg/dL and unconscious orNPO with IV access, Starting on Fri09/23/23 at [...] repeat treatment. VESICANT (RED) Warning: HYPERTONIC solution. * 0613 ([facility] Hold - Provider: Automatic Transfer Provider - Reason: Patient not available) * 1151 ([facility] Unhold - Provider: Automatic Transfer Provider) fentaNYL (SUBLIMAZE) injection 50 mcg (CANCELED) 50 mcg, intravenous, Every 5 min PRN, Pain Scale 6-10, Starting on Carrie 09/25/23 at 0924, PACU (only),Up to a maximum dose of 150 mcg Look-alike/sound-alike medication - verify indication for use. * 0958 (Given - Provider: Jennifer Lawton, ASHIA) * 1048 (Given - Provider: Jennifer Lawton, ASHIA) gadoteridoL (PROHANCE) injection 5.26 mmol 10.52 mL (COMPLETED) 5.26 mmol (0.1 mmol/kg 52.6 kg), intravenous, Once in imaging, contrast, MRI, Starting on Fri09/24/23 at 0153, For 1 dose, Additional Imaging Orders, VESICANT (RED) * 0153 (Given - Provider: Eva Jackman) glucagon HCL injection 1 mg 1 mg, intramuscular, As needed, low blood sugar, blood glucose less than 70 mg/dL and unconscious or NPO without IV access., Starting on Fri09/23/23 at 0032, If conscious and not NPO, immediately follow with meal tray or high protein (7Grams) snack if tray not available. If NPO, initiate IV 5% Dextr ose/Water at 100 mL/hr and contact prescriber for additional orders. If blood glucose is not greater than 70 mg/dL after initial treatment, repeat treatment. * 0613 ([facility] Hold - Provider: Automatic Transfer Provider - Reason: Patient not available) * 1151 ([facility] Unhold - Provider: Automatic Transfer Provider) ondansetron (PF) (ZOFRAN) injection 4 mg 4 mg, intravenous, Every 8 hours PRN, nausea, vomiting, Starting on Fri09/23/23 at 0032, Administerover 2-5 minutes. * 0613 ([facility] Hold - Provider: Automatic Transfer Provider - Reason: Patient not available) * 1151 ([facility] Unhold - Provider: Automatic Transfer Provider) sennosides-docusate sodium (SENOKOT-S) 8.6-50 mg 1 tablet 1 tablet, oral, Every 12 hours PRN, constipation, Starting on Fri09/23/23 at 0032 * 0613 ([facility] Hold - Provider: Automatic Transfer Provider - Reason: Patient not available) * 1151 ([facility] Unhold - Provider: Automatic Transfer Provider) sodium chloride 0.9 % flush 10 mL (COMPLETED) 10 mL, intravenous, Once in imaging, line care, MRI, Starting on Fri09/24/23 at 0153, For 1 dose, Additional Imaging Orders * 0154 (Given - Provider: Eva Jackman) sodium chloride 0.9 % flush 3 mL 3 mL, intravenous, As needed, line care, before and after each intermittent use, Starting on Fri09/23/23 at 0032 * 0613 ([facility] Hold - Provider: Automatic Transfer Provider - Reason: Patient not available) * 1151 ([facility] Unhold - Provider: Automatic Transfer Provider) sodium chloride 0.9 % flush bag 25 mL, intravenous, at 100 mL/hr, Administer over 15 Minutes, As needed, line care, line care afterIVPB administration, Starting on Fri09/23/23 at 0032 * 0613 ([facility] Hold - Provider: Automatic Transfer Provider - Reason: Patient not available) * 1151 (OCT Unhold - Provider: Automatic Transfer Provider) sodium chloride 0.9 % infusion 20 mL/hr, intravenous, Continuous PRN, to maintain patency of lines, Starting on Fri09/23/23 at 0032 * 1008 (Restarted - Provider: Kimberly Chin RN) * 0613 (OCT Hold - Provider: Automatic Transfer Provider - Reason: Patient not available) * 1151 (OCT Unhold - Provider: Automatic Transfer Provider) sodium chloride 0.9% (NS) irrigation bottle (CANCELED) As needed, Starting on Carrie 09/25/23 at 0807, Intra-op * 0807 (Given - Provider: Kristel Reid MD [...] BE BASED ON THE PRIMARY CLINICAL RECORDS. [employer] provides no warranty or guarantee of the accuracy or completeness of information in this document.
--- NOTE | 2025-06-23 16:45 | CT_ITS ---
The [address] [address] Patient Name: JOSE DALAL MRN: [id number] date: 1945 Sex: F Assigned Patient Location: ED.MAIN Current Patient Location: ED.MAIN Accession/Order Number: [id number] Exam Date: 06/23/2025 16:40 Report Date: 06/23/2025 17:26 At the request of: LADI LOPEZ Procedure: CT cervical spine wo con CT CERVICAL SPINE WITHOUT CONTRAST WITH 3D RECONSTRUCTIONS: CLINICAL HISTORY: Fall COMPARISON: None TECHNIQUE: Spiral axial unenhanced images were obtained through the cervical spine. Sagittal, coronal and 3D volume-rendered reconstructions were also reviewed. This CT exam was performed using one or more following dose reduction techniques: Automated exposure control, adjustment of the mA and/or kV according to patient size, or use of iterative reconstruction technique. FINDINGS: Straightening normal cervical lordosis. Multilevel intervertebral space narrowing and ossific spurring C4-C7 greatest C5-C7. Multilevel facet arthropathy greatest involving the upper cervical spine. No evidence acute fracture or malalignment. Prevertebral paraspinal soft tissues are unremarkable as visualized. Multilevel uncovertebral and foraminal encroachment appears greatest the right. Lung apices are clear. CT/CT cervical spine wo con IMPRESSION: NO CERVICAL SPINE FRACTURE MULTILEVEL DEGENERATIVE CHANGE. Impression dictated by: Charlie Patel M.D. 06/23/2025 5:26 PM Dictation Location: [place] [address] Electronically authenticated by: [id number] Y Date: 06/23/2025 17:26
--- NOTE | 2025-06-23 16:50 | CT_ITS ---
The [address] [address] Patient Name: JOSE DALAL MRN: [id number] date: 1945 Sex: F Assigned Patient Location: ED.MAIN Current Patient Location: ED.MAIN Accession/Order Number: [id number] Exam Date: 06/23/2025 16:40 Report Date: 06/23/2025 17:23 At the request of: LADI LOPEZ Procedure: CT head/brain wo con CT BRAIN WITHOUT CONTRAST: CLINICAL HISTORY: Fall COMPARISON: CT angiogram head and neck 09/22/2023 TECHNIQUE: Contiguous axial unenhanced images were obtained through the brain. This CT exam was performed using one or more following dose reduction techniques: Automated exposure control, adjustment of the mA and/or kV according to patient size, or use of iterative reconstruction technique. FINDINGS: There is no evidence of midline shift, intra or extra-axial fluid collection, hemorrhage or CT evidence of acute large vascular distribution stroke. Minor central involutional changes and chronic small vessel disease. Left posterior basal ganglia hypodensity may represent dilated perivascular space versus chronic lacunar type stroke. There are intracranial vascular calcifications. Cataract surgery. Mild sinus disease. Mastoids are clear. The surrounding soft tissues are normal. CT/CT head/brain wo con IMPRESSION: NO ACUTE INTRACRANIAL ABNORMALITY. MINOR CHRONIC SMALL VESSEL CHANGES. Impression dictated by: Charlie Patel M.D. 06/23/2025 5:23 PM Dictation Location: [place] [address] Electronically authenticated by: [id number] Y Date: 06/23/2025 17:23
== END 2025-06-23 17:53 | disposition home or self-care (01) ==
PROVIDERS: Emergency Provider Emergency Medicine; PCP Nurse Practitioner Family
DX: S09.8XXA Other specified injuries of head, initial encounter (principal); W18.39XA Other fall on same level, initial encounter; H54.7 Unspecified visual loss; Z87.891 Personal history of nicotine dependence
CPT/HCPCS: 70450; 72125; 76376; 99284

== ENCOUNTER 2025-08-13 20:22 | Emergency (ER) | payer MEDICARE, SELFPAY ==
--- OUTSIDE RECORDS SUMMARY | 2024-03-08 08:00 | XMS_ITS ---
Author Organization [facility] in [place] Address [address] [place] [address] Care Team Providers Care Hand Tube Bender Name Role Phone Giovanna Graf CNP Primary Care Provider U Roix Pantoja Unavailable [phone] REASON FOR VISIT Nail care Encounters Encounter Location Date Provider Diagnosis [facility] (PODIATRY) [address] [place] [address] [place] [address] 03/08/2024 Roxi To Plan Of Treatment No Information Progress Notes * FRANKIEKaitisDOB:1945 ( 80 yo F)Acc No.[id number]:03/08/2024 UNLOCKED PROGRESS NOTE Nurse Visit Patient: Minda CHINO :?ERIK MtzCDOB:1945???Age:78 Y ???Sex:FemaleDate:4Phone:[phone]:[address] [place] [address] [phone]:Giovanna Graf CNP Subjective: * Chief Complaints: * 1 . Nail care. * Medical History: Objective: * Vitals: Assessment: Plan: * Treatment: * * Electronic signature of Roxi To PA-C on 08/13/2025 at 08:43 PM ESTSign off status: PendingVisit Status:?N/S N/C (No Show/No Charge) * Provider: Neto To PA-C Date: 0 03/08/2024 Generated for Printing/Faxing/eTransmitting on:?08/13/2025 08:43 PM EST
--- OUTSIDE RECORDS SUMMARY | 2024-09-28 04:00 | XMS_ITS ---
Author Organization [facility] Address [address] [place] [address] Care Team Providers Care Missile Facilities Repairer Name Role Phone Dr. 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 Encounter Location Date Provider Diagnosis [facility] [address] [place] [address] 09/28/2024 Asa Pandya Plan Of Treatment Next Appt Details Provider Name:Katia Chacko, 08/29/2025 10:30:00 AM, [address] [place], [address], Provider Name:Katia Chacko, 09/01/2025 10:30:00 AM, [address] [place], [address], Progress Notes * GERTRUDIS DALALOB:1945 ( 80 yo F)Acc No.[id number]:09/28/2024 Patient:?JOSE DALAL :?Asa Pandya DDSDOB:1945???Age:79 Y???Sex: FemaleDate:09/28/2024Phone:[phone]:[address] [facility], [address], [place], [id number] Subjective: * Chief Complaints: * N P EXAM * Electronic signature of Dr. Asa Pandya , DMD, [id number] on 08/13/2025 at 08:44 PM ESTSign off status: Pending * Provider: Sepideh Pandya DDS Date: 0 09/28/2024 Generated for Printing/Faxing/eTransmitting on:?08/13/2025 08:44 PM EST
--- OUTSIDE RECORDS SUMMARY | 2025-01-06 05:45 | XMS_ITS ---
Author Organization [facility] Address [address] [place] [address] Care Team Providers Care Mental Hygienist Name Role Phone Dr. Asa Pandya Primary Care Provider Katia Chacko [phone] REASON FOR VISIT FILLING Encounters Encounter Location Date Provider Diagnosis [facility] [address] [place] [address] 01/06/2025 Katia Chacko Plan Of Treatment Next Appt Details Provider Name:Katia Chacko, 08/29/2025 10:30:00 AM, [address] [place], [address], Provider Name:Katia Chacko, 09/01/2025 10:30:00 AM, [address] [place], [address], Progress Notes * GERTRUDIS DALALOB:1945 ( 80 yo F)Acc No.[id number]:01/06/2025 Patient:?JSOE DALAL :?Katia ChackoDOB:1945???Age:79 Y???Sex: FemaleDate:01/06/2025Phone:[phone]:[address] [facility], [address], [place], [id number]:Dr. Asa Pandya Subjective: * Chief Complaints: * F ILLING * Electronic signature of Katia Chacko , DMD on 08/13/2025 at 08:43 PM ESTSign off status: Pending * Provider: Sepideh Chacko Date: 0 01/06/2025 Generated for Printing/Faxing/eTransmitting on:?08/13/2025 08:43 PM EST
--- OUTSIDE RECORDS SUMMARY | 2025-01-13 05:30 | XMS_ITS ---
Author Organization [facility] Address [address] [place] [address] Care Team Providers Care Shot Peen Operator Name Role Phone Dr. Asa Pandya Primary Care Provider [phone] Katia Chacko [phone] REASON FOR VISIT FILLING Encounters Encounter Location Date Provider Diagnosis [facility] [address] [place] [address] 01/13/2025 Katia Chacko Plan Of Treatment Next Appt Details Provider Name:Katia Chacko, 08/29/2025 10:30:00 AM, [address] [place], [address], Provider Name:Katia Chacko, 09/01/2025 10:30:00 AM, [address] [place], [address], Progress Notes * GERTRUDIS DALALOB:1945 ( 80 yo F)Acc No.[id number]:01/13/2025 Patient:?JOSE DALAL :?Katia ChackoDOB:1945???Age:79 Y???Sex: FemaleDate:01/13/2025Phone:[phone]:[address] [facility], [address], [place], [id number]:Dr. Asa Pandya Subjective: * Chief Complaints: * F ILLING * Electronic signature of Katia Chacko , DMD on 08/13/2025 at 08:44 PM ESTSign off status: Pending * Provider: Sepideh Chacko Date: 0 01/13/2025 Generated for Printing/Faxing/eTransmitting on:?08/13/2025 08:44 PM EST
--- OUTSIDE RECORDS SUMMARY | 2025-04-11 05:15 | XMS_ITS ---
Author Organization [facility] Address [address] [place] [address] Care Team Providers Care Oncology Physician Assistant Name Role Phone Dr. Asa Pandya Primary Care Provider [phone] Gladis Resendiz [phone] REASON FOR VISIT PROPHY DEBRIDEMENT/SUB G CALC Encounters Encounter Location Date Provider Diagnosis [facility] [address] [place] [address] 04/11/2025 Gladis Baltazar Plan Of Treatment Next Appt Details Provider Name:Katia Mackenzieamber, 08/29/2025 10:30:00 AM, [address] [place], [address], Provider Name:Katia Mackenzieamber, 09/01/2025 10:30:00 AM, [address] [place], [address], Progress Notes * GERTRUDIS DALALOB:1945 ( 80 yo F)Acc No.[id number]:04/11/2025 Patient:?JOSE DALAL :?Gladis BaltazarDOB:1945???Age:79 Y???Sex: FemaleDate:04/11/2025Phone:[phone]:[address] [facility], [address], [place], [id number]:Dr. Asa Pandya Subjective: * Chief Complaints: * P ROPHY DEBRIDEMENT/SUB G CALC * Electronic signature of Gladis Baltazar on 08/13/2025 at 08:44 PM ESTSign off status: Pending * Provider: Neto Baltazar Date: 0 04/11/2025 Generated for Printing/Faxing/eTransmitting on:?08/13/2025 08:44 PM EST
[2025-08-13 20:29] VITALS: BP 190/84; PULSE 92; TEMP 36.8; O2SAT 98; BMI 27.4
--- NOTE | 2025-08-13 20:33 | ED.EXTPRO1 ---
HPI - Extremity Problem General Chief complaint: Extremity Problem, Nontraumatic Stated complaint: OTHER Time Seen by Provider: 08/13/25 20:32 Source: patient Mode of arrival: ambulance Limitations: no limitations History of Present Illness HPI Narrative: presents complaining of right leg pain today. Denies any injury. States she will occ have right knee pain and this goes away. Today she has right knee and leg pain. leg hurts down to her ankle. no pain of the ankle. Pain is not behind the leg. No weakness or injury and denies any back pain Related Data Home Medications ?Medication ?Instructions ?Recorded ?Confirmed aspirin 81 mg tablet,delayed 81 mg PO DAILY 11/21/24 08/13/25 release multivitamin (Daily Multi-Vitamin 1 tab PO DAILY 11/21/24 08/13/25 tablet) prednisone 2.5 mg tablet 2.5 mg PO DAILY 11/21/24 08/13/25 tocilizumab 162 mg/0.9 mL 162 mg subcut Q14D 11/21/24 08/13/25 subcutaneous pen injector (Actemra ACTPen) alendronate 70 mg tablet 70 mg PO DAILY 06/23/25 08/13/25 omeprazole 20 mg capsule,delayed 20 mg PO DAILY 06/23/25 08/13/25 release Allergies Allergy/AdvReac Type Severity Reaction Status Date / Time Penicillins Allergy Mild Flushing Verified 08/13/25 20:29 Review of Systems ROS Status of ROS 10 or more systems reviewed and unremarkable except as noted in history and below PFSH PFS Medical History Acid reflux ?K21.9 - Gastro-esophageal reflux disease without esophagitis (ICD-10) Kidney calculi ?N20.0 - Calculus of kidney (ICD-10) Neck pain ?M54.2 - Cervicalgia (ICD-10) Surgical History History of bilateral tubal ligation ?Z98.51 - Tubal ligation status (ICD-10) History of phacoemulsification of cataract of both eyes with intraocular lens implantation ?Z98.41 - Cataract extraction status, right eye (ICD-10) ?Z98.42 - Cataract extraction status, left eye (ICD-10) ?Z96.1 - Presence of intraocular lens (ICD-10) Hx of appendectomy ?Z90.49 - Acquired absence of other specified parts of digestive tract (ICD-10) Social History Smoking status: Former smoker Little interest or pleasure in doing things: not at all Feeling down, depressed, or hopeless: not at all Exam Constitutional Vital Signs, click to edit/add: Last Vital Signs Temp 98.3 F 08/13/25 20:29 Pulse 92 H 08/13/25 20:29 Resp 19 08/13/25 20:29 BP 144/81 H 08/13/25 20:36 Pulse Ox 97 08/13/25 20:36 O2 Del Method Room Air 08/13/25 20:29 Common normals: no apparent distress, average body habitus, oriented x3, no limitations, healthy appearing, alert and well nourished [facility] Common normals: normocephalic and head/scalp atraumatic Eye Common normals: EOMs intact bilaterally and conjunctivae normal Respiratory Common normals: normal respiratory effort, no retractions, no use of accessory muscles and clear to auscultation bilaterally Cardio Common normals: regular rate, regular rhythm, S1 normal heart sound and S2 normal heart sound Back & Pelvis Common normals: no CVA tenderness, thoracic and lumbar spine normal to inspection and no thoracic nor lumbar tenderness Extremity Common normals: normal to inspection Other: mild tenderness right hip and right knee. No deformity, erythema or warmth Neuro Common normals: oriented x3, CN's II-XII intact bilaterally, moves all extremities and no focal motor deficits Psych Appearance: grossly normal Course Vital Signs Vital signs: Vital Signs Temperature 98.3 F 08/13/25 20:29 Pulse Rate 92 H 08/13/25 20:29 Respiratory Rate 19 08/13/25 20:29 Blood Pressure 190/84 H 08/13/25 20:29 Pulse Oximetry 98 08/13/25 20:29 Oxygen Delivery Method Room Air 08/13/25 20:29 Temperature 98.3 F 08/13/25 20:29 Pulse Rate 92 H 08/13/25 20:29 Respiratory Rate 19 08/13/25 20:29 Blood Pressure 144/81 H 08/13/25 20:36 Pulse Oximetry 97 08/13/25 20:36 Oxygen Delivery Method Room Air 08/13/25 20:29 MDM - Extremity (Nontraumatic) MDM Narrative Medical decision making narrative: patient presents with right leg pain. No injury. Past history of DJD right knee and will occ experience pain. States tonight her entire leg was hurting. exam unremarkable. Afebrile and labs normal including sed rate and CRP. xray with significant DJD right knee. right hip with mild arthritis. patient medicated with toradol and solumedrol and feels the pain has improved. will have nursing see if she can walk patient able to ambulate with the walker. She has a walker at home. Her son will stay with her tonight Lab Data Labs: Lab Results 08/13/25 Range/Units 21:20 WBC 7.8 (4.0-11.0) 10^3/uL RBC 3.77 L (4.20-5.40) 10^6/uL Hgb 12.2 (12.0-16.0) g/dL Hct 37.0 (36.0-48.0) % MCV 98.1 (81.0-99.0) fL MCH 32.4 (26.7-34.0) pg MCHC 33.0 (29.9-35.2) g/dL RDW 13.4 (11.0-15.0) % Plt Count 280 (150-450) 10^3/uL MPV 8.8 L (9.5-13.5) fL Neut % (Auto) 48.9 (43.0-75.0) % Lymph % (Auto) 40.7 (20.5-60.0) % [place] % (Auto) 8.3 (1.7-12.0) % Eos % (Auto) 1.3 (0.9-7.0) % Baso % (Auto) 0.5 (0.2-2.0) % Neut # (Auto) 3.8 (1.4-6.5) 10^3/uL Lymph # (Auto) 3.2 (1.2-3.8) 10^3/uL [place] # (Auto) 0.7 (0.3-0.8) 10^3/uL Eos # (Auto) 0.1 (0.0-0.7) 10^3/uL Baso # (Auto) 0.0 (0.0-0.1) 10^3/uL Abs Immat Gran (auto) 0.02 (0.00-0.03) 10^3/uL Imm/Tot Granulo (auto) 0.3 (0.0-0.5) % ESR 3 (<=30) mm/hr Sodium 140 (136-145) mmol/L Potassium 3.8 (3.5-5.1) mmol/L Chloride 107 (98-107) mmol/L Carbon Dioxide 28.9 (21.0-32.0) mmol/L Anion Gap 7.9 BUN 23.0 H (7.0-18.0) mg/dL Creatinine 0.72 (0.55-1.02) mg/dL Est GFR ( Amer) >60 (>=60 mL/min/1.73m^2) Est GFR (Non-Af Amer) >60 (>=60 mL/min/1.73m^2) BUN/Creatinine Ratio 31.9 Glucose 88 (74-106) mg/dL Calcium 8.7 (8.5-10.1) mg/dL C-Reactive Protein <0.50 (<=0.50) mg/dL Discharge Plan Discharge Chief Complaint: Extremity Problem, Nontraumatic Clinical Impression: Arthritis of right knee, Arthritis of right hip Patient Disposition: Home, Self-Care Prescriptions / Home Meds: No Action aspirin 81 mg tablet,delayed release (DR/EC) 81 mg PO DAILY Actemra ACTPen 162 mg/0.9 mL pen injector 162 mg subcut Q14D multivitamin [Daily Multi-Vitamin] Tablet 1 tab PO DAILY prednisone 2.5 mg tablet 2.5 mg PO DAILY omeprazole 20 mg capsule,delayed release(DR/EC) 20 mg PO DAILY alendronate 70 mg tablet 70 mg PO DAILY Print Language: Sinhala Instructions: Osteoarthritis (ED) Additional Instructions: follow up with your doctor next week for recheck Referrals: RENE JENKINS [Primary Care Provider, Unknown] - 1 week
[2025-08-13 20:36] VITALS: BP 144/81; O2SAT 97
--- NOTE | 2025-08-13 20:39 | XR_ITS ---
The [address] [address] Patient Name: JOSE DALAL MRN: [id number] date: 1945 Sex: F Assigned Patient Location: ED.MAIN Current Patient Location: Accession/Order Number: [id number] Exam Date: 08/13/2025 20:55 Report Date: 08/14/2025 09:03 At the request of: DELMAR WEINER MD Procedure: XR knee RT 3V Right hip 2 views of one view pelvis, right knee 2 views. Reason for exam: Right knee/hip pain for 2 hours. No known injury. FINDINGS: Right hip/pelvis: Mild degenerative changes involving both hips without acute bony process. Additional degenerative changes involving the visualized lower lumbar spine, SI joints and pubic symphysis. Right knee: Moderate degenerative changes with lateral weightbearing joint space narrowing. Moderate joint effusion. No acute bony process. XR/XR knee RT 3V IMPRESSION: Mild degenerative changes of the hips and moderate degenerative changes involving the right knee without acute bony process. Impression dictated by: Asa Prajapati Jr., DMoisesOMoises 08/14/2025 9:03 AM Dictation Location: [employer] Electronically authenticated by: [id number] Y Date: 08/14/2025 09:03
--- NOTE | 2025-08-13 20:39 | XR_ITS ---
The [address] [address] Patient Name: JOSE DALAL MRN: [id number] date: 1945 Sex: F Assigned Patient Location: ED.MAIN Current Patient Location: Accession/Order Number: [id number] Exam Date: 08/13/2025 20:55 Report Date: 08/14/2025 09:03 At the request of: DELMAR WEINER MD Procedure: XR knee RT 3V Right hip 2 views of one view pelvis, right knee 2 views. Reason for exam: Right knee/hip pain for 2 hours. No known injury. FINDINGS: Right hip/pelvis: Mild degenerative changes involving both hips without acute bony process. Additional degenerative changes involving the visualized lower lumbar spine, SI joints and pubic symphysis. Right knee: Moderate degenerative changes with lateral weightbearing joint space narrowing. Moderate joint effusion. No acute bony process. XR/XR hip RT 2V w/ pelvis IMPRESSION: Mild degenerative changes of the hips and moderate degenerative changes involving the right knee without acute bony process. Impression dictated by: Asa Prajapati Jr., D.OMoises 08/14/2025 9:03 AM Dictation Location: [employer] Electronically authenticated by: [id number] Y Date: 08/14/2025 09:03
--- OUTSIDE RECORDS SUMMARY | 2025-08-13 20:44 | XMS_ITS | Clinical Summary ---
Author Organization [facility] Address [address] [place] [address] Care Team Providers Care Stem Shaper Name Role Phone Giovanna Graf NP Primary Care Provider [phone] Allergies Active AllergyReactionsCriticalityNoted DateCommentsCiprofloxacinNausea And Brudtpbt68/04/3896KzaoyzkwkkMdcrmShxxsn42/30/2024 Other reaction(s): Confusion Medications MedicationSigDispense QuantityRefillsLast FilledStart DateEnd DateStatus acetaminophen (Tylenol) 500 mg tablet Take 500 mg by mouth every 6 (six) hours if needed.Active tiZANidine (Zanaflex) 2 mg tablet Take 2 mg by mouth in the evening.02/06/2023ctive sulfamethoxazole-trimethoprim (Bactrim DS) 800-160 mg tablet Indications:GCA (giant cell arteritis) (CMS/HCC),Other specified abnormal immunological findings in serum,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 90 tablet 302//418098/6Active tocilizumab (Actemra ACTPen) 162 mg/0.9 mL pen injector Indications:GCA (giant cell arteritis) (CMS/HCC)Inject 162 mg under the skin every 14 (fourteen) days. 1.8 mL 1105Active omeprazole (PriLOSEC) [address] capsule Take 20 mg by mouth before breakfast. 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 360 tablet 306//6Active Spectravite Adult 50 Plus 0.4 mg-300 mcg- [...] for the next 30 min. 12 tablet 307/101678/6Active aspirin 81 mg EC tablet Indications:GCA (giant cell arteritis) (CMS/HCC),Other specified abnormal immunological findings in serum,senior living systemic steroid user,Encounter for screening for other viral diseases,Other hyperlipidemiaTAKE 1 TABLET (81 MG) BY MOUTH IN THE MORNING 90 tablet Expired Active Problems ProblemNoted DateDiagnosed DateDecreased dorsalis pedis pulse02/01/2025 Nvplhxdjegjxwqlpu19/10/2025Long term systemic steroid user02/01/2025Urge incontinence of urine01/27/20249036Zwvalsli60/04/2024History of renal calculi 01/27/2024History of cataract zzdulvnszn96/04/2024GERD (gastroesophageal reflux disease)01/27/2024Eustachian tube cjihmztrwxo49/04/2024Normocytic anemia /09/20232508Twzseuykwksruc07/14/202404/02/2024Giant cell arteritis Vision gnzflra35Stroke-like symptoms Encounters DateTypeDepartmentCare CcxbDwowcqpryog85/03/2025 1:30 PM ESTFollow-Up [facility] [address] [phone] Jt Jasso MD senior living systemic steroid user (Primary Dx); Other hyperlipidemia; Giant cell arteritis (CMS/HCC)from Last 3 Months Social History Tobacco UseTypesPacks/DayYears UsedDateSmoking Tobacco: FormerCigarettes Smokeless Tobacco: Former Tobacco Cessation:Counseling Given: Not Answered Alcohol UseStandard Drinks/WeekCommentsNot Currently0 (1 standard drink = 0.6 oz pure alcohol)LA Safety & EnvironmentAnswerDate RecordedFear of Current or Ex-PartnerNot on file10/17/2023Emotionally AbusedNot on file10/17/2023hysically AbusedNot on file10/17/2023Sexually AbusedNot on file10/17/2023hysically or Sexually AbusedNot on file10/17/2023CommentsUnknownSex and Gender InformationValueDate RecordedSex Assigned at NfikwUcftkc14/03/2025 1:40 PM EST Legal HanFypqnw82/02/2024 11:59 PM ESTGender IwhgxowiNwyzuy58/03/2025 1:40 PM ESTSexual OrientationChoose not to yjhakeru38/03/2025 1:40 PM EST Last Filed Vital Signs Vital SignReadingTime TakenCommentsBlood Iitnfepe570/8407/27/2025 1:41 PM EST Unuuv093707/27/2025 1:41 PM ESTTemperature--Respiratory Rate--Oxygen Khnpsnynjj65% 07/27/2025 1:41 PM ESTInhaled Oxygen Concentration--Lobduw54.6 kg (149 lb) 07/27/2025 1:41 PM GSXTukxsj616.5 cm (5' 2 )07/27/2025 1:41 PM ESTBody Mass Index27.25109/27/2024 1:41 PM EST Plan of Treatment DateTypeDepartmentCare Team (Latest Contact Info)Fpxtlvxsgpf64/22/2026 1:30 PM EDTFollow-Up [facility] Rhe[facility]ology [address] [place] [address] Jt Jasso MD [address] [place] [address] Health MaintenanceDue DateLast DoneCommentsMedicare Annual Wellness (AWV) 6COVID-19 Vaccine (#1)1Depression Pqhlfhiqb49/17/1958 Pneumococcal Vaccine: 50+ Years (1 of 2 - PCV)1965Zoster Vaccines (1 of 2) 1965Adult Qiispkl1805/11/1968Fall Risk Zvrndlgxd54/17/2011Influenza Vaccine (#1)2025HIB VaccinesAged OutNo longer eligible based [...] MemberRelationshipSpecialtyStart DateEnd Date Giovanna Graf NP [address] [place] [address] PCP - GeneralFamily Medicine10/21/23
--- OUTSIDE RECORDS SUMMARY | 2025-08-13 20:44 | XMS_ITS | Clinical Summary ---
Author Organization [facility] Address [id number] [address] 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 Name Role Phone Giovanna Graf Primary Care Provid er Allergies Active AllergyReactionsCriticalityNoted DateCommentsPenicillinConfusion,Fever Rmttbx5009/23/2023 Medications MedicationSigDispense QuantityRefillsLast FilledStart DateEnd DateStatus acetaminophen [...] sprays into each nostril in the morning.01/23/2024ctive ckyodprdrbez-oqtwqidl-puyliw (MULTIVITAMIN 50 PLUS) tablet Take 1 tablet by mouth in the morning.5010/06/2025ctive omeprazole (PriLOSEC) 10 mg capsule Take 2 capsules (20 mg total) by mouth in the morning.Active alendronate (FOSAMAX) 70 mg tablet Take 1 tablet (70 mg total) by mouth Once a week.ctive Active Problems ProblemNoted DateDiagnosed DateNormocytic ymqtei8711/06/2023Thrombocytosis 11/06/2023Giant cell gqyqfspgi21/22/2024Vision sbywina2009/23/2023Stroke-like yqhpajri41/30/2024 Encounters DateTypeDepartmentCare QedvFgnxnfgdtcn09/03/3819Tsqgjx67/13/2297Alcurh22/20/2025 9:30 AM EDTOffice Visit [facility] - Medical Oncology [address] [place] [phone] Kari Pablo APRN-CNP Iron deficiency (Primary Dx); Normocytic anemia; Thrombocytosis; Anemia, unspecified type; Giant cell arteritis ([facility]-HCC)06/13/20255644Mwqowe79/03/2025Orders Only [facility] - Medical Oncology [address] [place] [phone] Roxie Saldivar APRN-CNP from Last 3 Months Immunizations No known [...] care, and heating?Not hard at all10/10/2024PHQ-2AnswerDate RecordedTotal Rnoxy8614PRAPARE - TransportationAnswerDate RecordedIn the past 12 months, [...] a part of a household?No10/10/2024hildcareAnswerDate RecordedChildcareUnknown 02/03/2019EmploymentAnswerDate MjdphjvhUdgcmnksumGgpxkcf89/12/2019Hunger ScreeningAnswerDate RecordedWithin the past 12 months we worried whether our food would run out before we got money to buy more.Never True10/10/2024Within the past 12 months the food we bought just didn't last and we didn't have money to get more.Never True10/10/2024Purpose - LifeAnswerDate RecordedPurpose and direction in fqxeQvzqgxx35/11/2021CommentsUnknownSex and Gender InformationValueDate RecordedSex Assigned at BirthNot on fileLegal SexFemale 03/30/2015 11:28 AM EDTGender IdentityNot on fileSexual OrientationNot on file Last Filed Vital Signs Vital SignReadingTime TakenCommentsBlood Gqmuhwti228/7010 9:33 AM EDT Npdjh496206/13/2025 9:33 AM CHTKmwxhtnxwkj61.8 ??C (98.2 ??F)06/13/2025 9:33 AM EDTRespiratory Ciqj6213 9:33 AM EDTOxygen Jrgjfboiag98%06/13/2025 9:33 AM EDTInhaled Oxygen Concentration--Plvhem45.4 kg (148 lb 9.6 oz)06/13/2025 9:33 AM UUCSithef022.5 cm (5' 2.01 )06/13/2025 9:33 AM EDTBody Mass Index27.17 06/13/2025 9:33 AM EDT Plan of Treatment DateTypeDepartmentCare Team (Latest Contact Info)Jwwpxbmarwe83/16/2026 10:30 AM ESTOffice Visit [facility] - Medical Oncology [address] [place] [phone] Kari Pablo APRN-PUBLICATIONS PRODUCTION SUPERVISOR [address] [place] [address], [address] [place], [place] [phone] Health MaintenanceDue DateLast DoneCommentsDTaP,Tdap and Td Vaccines (1 - Tdap) 1965Zoster (Shingles) Vaccine (1 of 2)1965Fall Risk Screening 2011RSV ( or age 60+ yrs) (1 - 1-dose 75+ series)2021 Depression Rgjeehahy09Influenza Cjffcrn5704/25/2025Tobacco Aztneusdj62 Goals GoalPatient Goal TypeAssociated ProblemsRecent ProgressPatient-Stated?Author <enter goal here> Brynn Cohn LSW Note: Evaluation of progress towards goal: Home with dtr, self care Medical Devices Not on file Procedures Procedure NamePriorityDate/TimeAssociated DiagnosisCommentsCOMPREHENSIVE METABOLIC ECOCRGwdelsd65/03/2025 1:34 PM EST Other giant cell arteritis (CMS-HCC) ERYTHROCYTE SEDIMENTATION RATE (ESR)Wcxguny9907/27/2025 1:34 PM EST Other giant cell arteritis (CMS-HCC) LIPID CSAJTYQEgxeuzw49/03/2025 1:34 PM EST Other giant cell arteritis (CMS-HCC) VITAMIN M18Vwnocjk80/03/2025 1:34 PM EST Normocytic anemia Thrombocytosis Anemia, unspecified type Iron deficiency SAOMGIGEPdneeqf66/03/2025 1:34 PM EST Normocytic anemia Thrombocytosis Anemia, unspecified type Iron deficiency IRON AND KZGULmdoikh74/03/2025 1:34 PM EST Normocytic anemia Thrombocytosis Anemia, unspecified type Iron deficiency CBC WITH AUTO PWYWJAAFXXXIQemhqlz04/03/2025 1:34 PM EST Normocytic anemia Thrombocytosis Anemia, unspecified type Iron deficiency from Last 3 Months Results * Erythrocyte Sedimentation Rate (ESR) (07/27/2025 1:34 PM EST)ComponentValueRef RangeTest MethodAnalysis TimePerformed AtPathologist SignatureESR, Erythrocyte Sedimentation Rate30 - 30 mm/07/27/2025 3:55 PM [facility] LABORATORYSpecimen (Source)Anatomical Location / LateralityCollection Method / VolumeCollection TimeReceived TimeBloodVenous blood / UnknownVenipuncture / Icdomeu8507/27/2025 1:34 PM EST07/27/2025 1:34 PM EST Narrative Authorizing ProviderResult TypeResult StatusNezam Luciano BALTAZAR BLOOD ORDERABLESFinal ResultPerforming OrganizationAddressCity/State/ZIP CodePhone Number [facility] [address] [place] [phone], * CBC with auto diff (07/27/2025 1:34 PM EST)ComponentValueRef RangeTest Method Analysis TimePerformed AtPathologist SignatureWBC7.24 - 11 10^9/L109/27/2024 3:30 PM [facility] LABORATORYRBC Count3.893.8 - 5.2 10^12/L 07/27/2025 3:30 PM [facility] STEPYNINLXBdxfgjrnqf02.511.7 - 15.5 g/dL07/27/2025 3:30 PM [facility] LABORATORYHematocrit 36.735 - 47 %07/27/2025 3:30 PM [facility] IHASTREUOYHTA1439 - 100 fL07/27/2025 3:30 PM [facility] LVGDXMWSEUTQY21.027 - 34 pg07/27/2025 3:30 PM [facility] ZQYVGTYDEVHDVD41.032 - 36 g/dL07/27/2025 3:30 PM [facility] CDLLJNGTVGRCM38.211.5 - 15 %07/27/2025 3:30 PM [facility] LABORATORYPlatelet Jgyax681295 - 450 10^9/L109/27/2024 3:30 PM [facility] LABORATORYMPV7.77 - 12 fL07/27/2025 3:30 PM [facility] LABORATORYNeutrophils % 52.4%07/27/2025 3:30 PM [facility] LABORATORYLymphocytes % 38.4%07/27/2025 3:30 PM [facility] LABOR[facility]ORYMonocytes %7.2% 07/27/2025 3:30 PM [facility] LABOR[facility]ORYEosinophils %1.6% 07/27/2025 3:30 PM [facility] LABORATORYBasophils %0.4% 07/27/2025 3:30 PM [facility] LABORATORYNeutrophils Absolute (A)3.81.5 - 6.6 10^9/L109/27/2024 3:30 PM [facility] LABORATORYLymphocytes Absolute2.81.0 - 3.5 10^9/L109/27/2024 3:30 PM [facility] LABORATORYMonocytes Absolute0.50.0 - 0.9 10^9/L109/27/2024 3:30 PM [facility] LABORATORYEosinophils Absolute0.10.0 - 0.4 10^9/L109/27/2024 3:30 PM [facility] LABORATORYBasophils Absolute0.00.0 - 0.2 10^9/L109/27/2024 3:30 PM [facility] LABORATORYDifferential TypeAUTOMATED YZJTRGXSBTWU82/03/2025 3:30 PM [facility] LABORATORYSpecimen (Source)Anatomical Location / Laterality Collection Method / VolumeCollection TimeReceived TimeBloodVenous blood / UnknownVenipuncture / Dfvzfae3107/27/2025 1:34 PM EST07/27/2025 1:34 PM EST Narrative Authorizing ProviderResult TypeResult StatusChasity A Samy GANG SUPERVISOR-CNPLAB BLOOD ORDERABLESFinal ResultPerforming OrganizationAddressCity/State/ZIP CodePhone Number [facility] [address] [place] [address], * Iron and TIBC (07/27/2025 1:34 PM EST)ComponentValueRef RangeTest Method Analysis TimePerformed AtPathologist VowmfamleLYLA1770 - 170 ug/dL07/27/2025 5:49 PM [facility] LABORATORYIRON GAUYYFR926740 - 425 ug/dL 07/27/2025 5:49 PM [facility] LABORATORYIRON MQTERNZWFK1124 - 50 % YEFTWWWMTY60/03/2025 5:49 PM [facility] Specimen (Source)Anatomical Location / LateralityCollection Method / Volume Collection TimeReceived TimeBloodVenous blood / UnknownVenipuncture / Unknown 07/27/2025 1:34 PM EST07/27/2025 1:34 PM EST Narrative Authorizing ProviderResult TypeResult StatusChasity A Samy GANG SUPERVISOR-CNPLAB BLOOD ORDERABLESFinal ResultPerforming OrganizationAddressCity/State/ZIP CodePhone Number [facility] [address] [place] [address], * Ferritin (07/27/2025 1:34 PM EST)ComponentValueRef RangeTest MethodAnalysis TimePerformed AtPathologist MegvozorkDHJZIUXW00186 - 307 ng/mL07/27/2025 6:02 PM [facility] LABORATORYSpecimen (Source)Anatomical Location / LateralityCollection Method / VolumeCollection TimeReceived TimeBloodVenous blood / UnknownVenipuncture / Rygnwus1307/27/2025 1:34 PM EST07/27/2025 1:34 PM EST Narrative Authorizing ProviderResult TypeResult StatusChasity A Samy GANG SUPERVISOR-CNPLAB BLOOD ORDERABLESFinal ResultPerforming OrganizationAddressCity/State/ZIP CodePhone Number [facility] [address] [place] [address], * Vitamin B12 (07/27/2025 1:34 PM EST)ComponentValueRef RangeTest MethodAnalysis TimePerformed AtPathologist SignatureVITAMIN H03070867 - 914 pg/mL07/27/2025 6:08 PM [facility] LABORATORYSpecimen (Source)Anatomical Location / LateralityCollection Method / VolumeCollection TimeReceived Time BloodVenous blood / UnknownVenipuncture / Ojgvtmd5907/27/2025 1:34 PM EST 07/27/2025 1:34 PM EST Narrative Authorizing ProviderResult TypeResult StatusChasity Marisol Pablo APRN-CNPLAB BLOOD ORDERABLESFinal ResultPerforming OrganizationAddressCity/State/ZIP CodePhone Number [facility] [address] [place] [address], * (ABNORMAL) Lipid profile (07/27/2025 1:34 PM EST)ComponentValueRef RangeTest MethodAnalysis TimePerformed AtPathologist UdgmkmrtzOKRFOZFIRCS950(H)150 - 200 mg/dL07/27/2025 5:49 PM [facility] VJTZLJNGALDGGTHKJOGRWF175 (H)27 - 150 mg/dL07/27/2025 5:49 PM [facility] LABORATORYHDL MTSPWZXBIYQ81>39 mg/dL07/27/2025 5:49 PM [facility] LABORATORYComment: HDL <40 mg/dL - High Risk HDL > or = 40mg/dL- Desirable HDL >60 mg/dL - Negative Risk LDL (CALC)166(H)<130 mg/dL07/27/2025 5:49 PM [facility] LABORATORYComment: LDL <100 mg/dL - Desirable LDL >160 mg/dL - High Risk CHOLESTEROL:HDL3.41.0 - 5. 5:49 PM [facility] LABORATORYVERY LOW PVTPDWOVXUC32(H)0 - 30 mg/dL07/27/2025 5:49 PM [facility] LABORATORYSpecimen (Source)Anatomical Location / Laterality Collection Method / VolumeCollection TimeReceived TimeBloodVenous blood / UnknownVenipuncture / Rluoifu4707/27/2025 1:34 PM EST07/27/2025 1:34 PM EST Narrative Authorizing ProviderResult TypeResult StatusNezam Luciano BALTAZAR BLOOD ORDERABLESFinal ResultPerforming OrganizationAddressCity/State/ZIP CodePhone Number [facility] [address] [place] [phone], * (ABNORMAL) Comprehensive metabolic panel (07/27/2025 1:34 PM EST)Component ValueRef RangeTest MethodAnalysis TimePerformed AtPathologist SignatureSODIUM 427343 - 146 mmol/L109/27/2024 5:49 PM [facility] POTASSIUM4.13.5 - 5.0 mmol/L109/27/2024 5:49 PM [facility] VSJMCDPLUKJUCBVTYP86274 - 109 mmol/L109/27/2024 5:49 PM [facility] LABORATORYCARBON GLTQZCR7481 - 32 mmol/L109/27/2024 5:49 PM [facility] LABORATORYANION GAP85 - 15 mmol/L109/27/2024 5:49 PM [facility] LABORATORYBLOOD UREA TUUVGFTR444 - 27 mg/dL07/27/2025 5:49 PM [facility] LABORATORYCREATININE0.830.40 - 1.00 mg/dL 07/27/2025 5:49 PM [facility] LABORATORYComment:METHOD TRACEABLE TO IDIL KXJINCBGDGBIGZB8120 - 99 mg/dL07/27/2025 5:49 PM [facility] LABORATORYCALCIUM9.18.5 - 10.5 mg/dL07/27/2025 5:49 PM [facility] LABORATORYTOTAL PROTEIN6.56.0 - 8.0 g/dL07/27/2025 5:49 PM [facility] LABORATORYALBUMIN4.23.2 - 5.3 g/dL 07/27/2025 5:49 PM [facility] LABORATORYALKALINE PHOSPHATASE 37(L)39 - 130 U/L109/27/2024 5:49 PM [facility] LABORATORYAST 20<=41 U/L109/27/2024 5:49 PM [facility] IFPBLCYEITXKI05<=31 U/L109/27/2024 5:49 PM [facility] LABORATORYBILIRUBIN,TOTAL0.6 0.3 - 1.2 mg/dL07/27/2025 5:49 PM [facility]ORYEGFR Non-Race Gliboyuvo24>=60 ml/min/1.73sq.m109/27/2024 5:49 PM [facility] LABORATORYComment: Reported eGFR is based on the CKD-EPI 2020 equation that does not use a race coefficient. Specimen (Source)Anatomical Location / LateralityCollection Method / Volume Collection TimeReceived TimeBloodVenous blood / UnknownVenipuncture / Unknown 07/27/2025 1:34 PM EST07/27/2025 1:34 PM EST Narrative Authorizing ProviderResult TypeResult StatusNezam Luciano BALTAZAR BLOOD ORDERABLESFinal ResultPerforming OrganizationAddressCity/State/ZIP CodePhone Number [facility] [address] [place] [address], from Last 3 Months Insurance Advance Directives TypeDate RecordedPatient RepresentativeExplanationDurable Power of Drop Wire Hanger 10/03/2023 8:14 AMDurable Power of Attorney1/ 4:17 PM[place] [facility] Care Power of Drop Wire Hanger * Full Code (Latest Code Status on File) Date ActivatedDate InactivatedComments09/23/2023 12:33 AM09/26/2023 7:44 PM NameRelationshipHealthcare Agent RelationshipCommunicationRaymond Brenda Health Care Agent* Malinda AlishaDaughterFirst Alternate Health Care Agent* Care Teams Team MemberRelationshipSpecialtyStart DateEnd Date Giovanna Graf APRN-NP [address] [place] [address] PCP - GeneralNurse Practitioner10/10/23
--- OUTSIDE RECORDS SUMMARY | 2025-08-13 20:45 | XMS_ITS | Patient Health Record ---
Author Organization [facility] Address [address] [place] [address] Care Team Providers Care Director Of Distance Learning Name Role Phone Dr. Asa Pandya Primary Care Provider [phone] Gladis Baltazar Unavailable [phone] Katia Chacko Unavailable [phone] Reason For Referral No Information Encounters Encounter Location Date Provider Diagnosis [facility] [address] [place] [address] 10/18/2024 Katia Chacko Other dental procedu re status Z98.818 ; Encounter for dental examination and cleaning with abnormal findings Z01.21 ; Disturbances in tooth eruption K00.6 ; Dental caries on pit and fissure surface penetrating into dentin K02.52 and Acute gingivitis, plaque induced K05.00 [facility] [address] [place] [address] 04/27/2025 Katia Chacko Dental caries on pit and fissure surface penetrating into dentin K02.52 Assessments Encounter Date Diagnosis (ICD Code) Assessment [...] 10:30:00 AM, [address], [place], [address], Provider Name:Katia Chacko, 09/01/2025 10:30:00 AM, [address] [place], [address], Insurance Providers Payer Name Payer Address Payer Phone Subscriber Number Group Number Insured Name Patient Relationship to Insured Coverage Start Date Coverage End Date [facility] MEDIC[facility] ADVANTAGE [address] [address] [place] [address] [id number] LAMIN DALALelf - patient is the [id number] 2024
--- OUTSIDE RECORDS SUMMARY | 2025-08-13 20:45 | XMS_ITS | Patient Health Record ---
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
[2025-08-13] MEDS: METHYLPREDNISOLONE SOD SUCC PF 125 MG/2 ML VIAL IVP (21:23)
[2025-08-13] MEDS: KETOROLAC TROMETHAMINE 30 MG/ML VIAL IVP (21:23)
[2025-08-13 21:38] LABS: Hematocrit 37.0 % (36.0-48.0); Hemoglobin 12.2 g/dL (12.0-16.0); Immature Granulocytes Abs Auto 0.02 10^3/uL (0.00-0.03); Immature Granulocytes Pct Auto 0.3 % (0.0-0.5); Lymphocytes Absolute Auto 3.2 10^3/uL (1.2-3.8); Mean Corpuscular HGB Conc 33.0 g/dL (29.9-35.2); Mean Corpuscular Hemoglobin 32.4 pg (26.7-34.0); Mean Corpuscular Volume 98.1 fL (81.0-99.0); Platelet Count 280 10^3/uL (150-450); Red Blood Count 3.77 10^6/uL (4.20-5.40); White Blood Count 7.8 10^3/uL (4.0-11.0)
[2025-08-13 21:48] LABS: Anion Gap 7.9; Blood Urea Nitrogen 23.0 mg/dL (7.0-18.0); Calcium 8.7 mg/dL (8.5-10.1); Carbon Dioxide 28.9 mmol/L (21.0-32.0); Chloride 107 mmol/L (98-107); Estimated GFR (African America >60 (>=60 mL/min/1.73m^2); Estimated GFR (Non-African Ame >60 (>=60 mL/min/1.73m^2); Glucose 88 mg/dL (74-106); Potassium 3.8 mmol/L (3.5-5.1); Sodium 140 mmol/L (136-145)
== END 2025-08-13 23:50 | disposition home or self-care (01) ==
PROVIDERS: Emergency Provider Internal Medicine; PCP Nurse Practitioner Family
DX: M17.11 Unilateral primary osteoarthritis, right knee (principal); M16.11 Unilateral primary osteoarthritis, right hip; Z87.891 Personal history of nicotine dependence
CPT/HCPCS: 36415; 73502; 73562; 80048; 85025; 85652; 86140; 96374; 96375; 99284; J1885; J2919